=== PATIENT | female | born 1950 | race Caucasian/White ===

== ENCOUNTER → 2020-01-28 10:47 | Outpatient (BNVA) | payer MEDICARE, SELFPAY | PROVIDERS: PCP Internal Medicine; Visit Provider Internal Medicine Endocrinology, Diabetes & Metabolism | DX: E10.649 Type 1 diabetes mellitus with hypoglycemia without coma (principal); E10.319 Type 1 diabetes mellitus with unspecified diabetic retinopathy without macular edema; E10.40 Type 1 diabetes mellitus with diabetic neuropathy, unspecified; Z96.41 Presence of insulin pump (external) (internal); E66.9 Obesity, unspecified; E21.1 Secondary hyperparathyroidism, not elsewhere classified; E78.5 Hyperlipidemia, unspecified; I10 Essential (primary) hypertension; E06.3 Autoimmune thyroiditis; E03.9 Hypothyroidism, unspecified; Z79.899 Other long term (current) drug therapy | CPT/HCPCS: 82947; 99214; 99215 ==

== ENCOUNTER → 2020-02-09 08:07 | Outpatient (BNVA) | payer MEDICARE, SELFPAY | PROVIDERS: PCP Internal Medicine; Visit Provider Dietitian, Registered | DX: Z76.89 Persons encountering health services in other specified circumstances (principal) ==

== ENCOUNTER → 2020-02-17 09:57 | Outpatient (BNVA) | payer MEDICARE, SELFPAY | PROVIDERS: PCP Internal Medicine; Visit Provider Internal Medicine Endocrinology, Diabetes & Metabolism | DX: E10.649 Type 1 diabetes mellitus with hypoglycemia without coma (principal); E10.319 Type 1 diabetes mellitus with unspecified diabetic retinopathy without macular edema; E10.40 Type 1 diabetes mellitus with diabetic neuropathy, unspecified; E66.9 Obesity, unspecified; E21.1 Secondary hyperparathyroidism, not elsewhere classified; E78.5 Hyperlipidemia, unspecified; I10 Essential (primary) hypertension; E06.3 Autoimmune thyroiditis; E03.8 Other specified hypothyroidism; Z79.899 Other long term (current) drug therapy; Z98.84 Bariatric surgery status | CPT/HCPCS: 82947; 99212 ==

== ENCOUNTER → 2020-02-22 10:55 | Outpatient (BNVA) | payer MEDICARE, SELFPAY | PROVIDERS: Visit Provider Internal Medicine | DX: I21.4 Non-ST elevation (NSTEMI) myocardial infarction (principal); I25.10 Atherosclerotic heart disease of native coronary artery without angina pectoris; I10 Essential (primary) hypertension; E11.8 Type 2 diabetes mellitus with unspecified complications; E78.49 Other hyperlipidemia; Z98.84 Bariatric surgery status; Z88.5 Allergy status to narcotic agent; Z88.8 Allergy status to other drugs, medicaments and biological substances; Z79.899 Other long term (current) drug therapy | CPT/HCPCS: 99212 ==

== ENCOUNTER 2020-02-23 10:51 | Outpatient (REF) | payer MEDICARE, SELFPAY ==
--- NOTE | 2020-02-23 10:56 | MM_ITS ---
EXAMINATION: MM SCREENING DIGITAL BREAST TOMOSYNTHESIS, BILATERAL CLINICAL INFORMATION: Screening. Asymptomatic. The lifetime risk of breast cancer based on the Tyrer-Cuzick Model is 3.0%. COMPARISON: Mammography: September 28, 2018 and studies dating back to December 25, 2011 TECHNIQUE: Digital breast tomosynthesis is performed in both the craniocaudal and mediolateral oblique views along with computer-aided detection (CAD). Synthesized 2D images are generated from the tomosynthesis. FINDINGS: The breasts are heterogeneously dense, which may obscure small masses (ACR BI-RADS breast composition Category c). There are no significant masses, abnormal calcifications, or other abnormalities. There is multiplicity and bilaterality of calcifications which are similar in appearance as well as prominent vascular calcifications. MM/MM tomosynthesis screening BI IMPRESSION: There are no significant changes from prior study. ASSESSMENT: BI-RADS 1: Negative RECOMMENDATION: Routine annual mammography screening. This patient's information was entered into a reminder system with a target due date for their next mammogram.
== END 2020-02-23 10:52 | disposition home or self-care (01) ==
LOC: HO.MAMMO 10:51
PROVIDERS: PCP Internal Medicine; Visit Provider Internal Medicine
DX: Z12.31 Encounter for screening mammogram for malignant neoplasm of breast (principal)
CPT/HCPCS: 77063; 77067

== ENCOUNTER 2020-03-27 11:53 | Outpatient (REF) | payer MEDICARE, SELFPAY | END 2020-03-27 11:54 | disposition home or self-care (01) | LOC: HO.LAB 11:53 | PROVIDERS: Visit Provider Internal Medicine | DX: Z20.828 Contact with and (suspected) exposure to other viral communicable diseases (principal) | CPT/HCPCS: C9803; U0003 ==

== ENCOUNTER → 2020-03-29 08:09 | Outpatient (BNVA) | payer MEDICARE, SELFPAY | PROVIDERS: PCP Internal Medicine; Visit Provider Physician Assistant | DX: E66.9 Obesity, unspecified (principal) ==

== ENCOUNTER → 2020-03-30 14:31 | Outpatient (BNVA) | payer MEDICARE, SELFPAY | PROVIDERS: PCP Internal Medicine; Visit Provider Physician Assistant | DX: K91.2 Postsurgical malabsorption, not elsewhere classified (principal); E66.9 Obesity, unspecified; Z90.3 Acquired absence of stomach [part of] | CPT/HCPCS: Q3014 ==

== ENCOUNTER → 2020-04-18 15:00 | Outpatient (BNV) | payer MEDICARE, SELFPAY | PROVIDERS: PCP Internal Medicine; Visit Provider Internal Medicine Medical Oncology | DX: N18.9 Chronic kidney disease, unspecified (principal); D63.1 Anemia in chronic kidney disease; E53.8 Deficiency of other specified B group vitamins; Z98.84 Bariatric surgery status | CPT/HCPCS: 99212; 99213; 99214 ==

== ENCOUNTER 2020-05-03 10:36 | Outpatient (REF) | payer MEDICARE, SELFPAY ==
[2020-05-03 13:26] LABS: Free T4 (Free Thyroxine) 0.56 ng/dL (0.71-1.85); Thyroid Stimulating Hormone 46.27 uIU/mL (0.32-4.0); Vitamin B12 1125 pg/mL (200-900); Vitamin D 25-OH Total 40.4 ng/mL (>30)
[2020-05-03 13:33] LABS: Alanine Aminotransferase 49 U/L (0-31); Alkaline Phosphatase 105 U/L (39-117); Anion Gap 16 (12-20); Aspartate Amino Transferase 38 U/L (5-31); Bilirubin Total 0.5 mg/dL (0.0-1.0); Blood Urea Nitrogen 15 mg/dL (9-16); Calcium 9.2 mg/dL (8.4-10.2); Carbon Dioxide 25 mmol/L (22-29); Chloride 102 mmol/L (96-108); Cholesterol 151 mg/dL; Estimated Glomerular Filt Rate 43; Glucose Fasting 253 mg/dL (60-99); HDL Cholesterol 84 mg/dL; LDL Cholesterol Calculated 49 mg/dl; Potassium 4.3 mmol/l (3.3-5.1); Sodium 139 mmol/L (135-145); Total Protein 6.6 g/dL (6.5-8.0); Triglycerides 94 mg/dL
[2020-05-03 13:54] LABS: Creatinine Urine 182.01 mg/dL; Microalbum/Creatinine Ratio Ur 2.7 ug/mg cr
[2020-05-04 06:17] LABS: LDL Cholesterol Direct 33 mg/dL (<100)
[2020-05-04 17:21] LABS: Calcium (PTHI) 9.1 mg/dL (8.6-10.4); PTHI 82 pg/mL (14-64)
== END 2020-05-03 10:37 | disposition home or self-care (01) ==
LOC: HO.LAB 10:36
PROVIDERS: PCP Internal Medicine; Visit Provider Internal Medicine Endocrinology, Diabetes & Metabolism
DX: E10.65 Type 1 diabetes mellitus with hyperglycemia (principal); E10.649 Type 1 diabetes mellitus with hypoglycemia without coma; E21.1 Secondary hyperparathyroidism, not elsewhere classified
CPT/HCPCS: 36415; 80053; 80061; 82043; 82306; 82607; 83721; 83970; 84439; 84443

== ENCOUNTER 2020-05-05 09:54 | Outpatient (REF) | payer MEDICARE, SELFPAY ==
--- NOTE | 2020-05-05 09:56 | FL_ITS ---
EXAMINATION: XR GI SERIES CLINICAL INFORMATION: Epigastric pain. COMPARISON: Upper GI series 12/11/2016. TECHNIQUE: Routine upper GI air-contrast study was performed. FINDINGS: Following oral administration of thick barium and effervescent granules there is normal propagation of bolus from the oral cavity through the pharynx, esophagus into stomach. Patient has undergone gastric bypass surgery with extensive surgical samuel in the left upper quadrant. On placing patient supine and prone there is spontaneous passage of oral contrast from the stomach into the duodenal and jejunal regions without any evidence of obstruction or narrowing. No gastroesophageal reflux seen. The mucosal pattern of esophagus, small gastric pouch, duodenal and jejunum appear unremarkable. No gastroesophageal reflux or hiatal hernia. FLUOROSCOPY TIME: 1.4 minutes. DOSE AREA PRODUCT: 29.288 uGy-m2 (microgray-meter squared). FL/FL upper GI series IMPRESSION: Unremarkable upper GI air-contrast. There is evidence of previous gastric bypass surgery with no mucosal abnormality. No reflux or hiatal hernia. No major change compared to previous study from 12/11/2016 exam.
== END 2020-05-05 09:55 | disposition home or self-care (01) ==
LOC: HO.XRAY 09:54
PROVIDERS: Visit Provider Internal Medicine Gastroenterology
DX: R10.13 Epigastric pain (principal)
CPT/HCPCS: 74240

== ENCOUNTER → 2020-05-12 10:28 | Outpatient (BNVA) | payer MEDICARE, SELFPAY | PROVIDERS: PCP Internal Medicine; Visit Provider Internal Medicine Endocrinology, Diabetes & Metabolism | DX: E10.649 Type 1 diabetes mellitus with hypoglycemia without coma (principal); E21.1 Secondary hyperparathyroidism, not elsewhere classified; E66.9 Obesity, unspecified; E78.5 Hyperlipidemia, unspecified; E06.3 Autoimmune thyroiditis; E03.8 Other specified hypothyroidism; I10 Essential (primary) hypertension | CPT/HCPCS: 82947; 99212 ==

== ENCOUNTER → 2020-05-17 08:15 | Outpatient (BNVA) | payer MEDICARE, SELFPAY | PROVIDERS: PCP Internal Medicine; Visit Provider Dietitian, Registered | DX: Z76.89 Persons encountering health services in other specified circumstances (principal) ==

== ENCOUNTER 2020-06-12 11:57 | Outpatient (REF) | payer MEDICARE, SELFPAY ==
[2020-06-12 16:07] LABS: Alanine Aminotransferase 37 U/L (0-31); Albumin Level 4.1 g/dL (3.5-5.0); Alkaline Phosphatase 90 U/L (39-117); Anion Gap 19 (12-20); Aspartate Amino Transferase 28 U/L (5-31); Bilirubin Total 0.9 mg/dL (0.0-1.0); Blood Urea Nitrogen 24 mg/dL (9-16); Carbon Dioxide 24 mmol/L (22-29); Chloride 102 mmol/L (96-108); Cholesterol 104 mg/dL; Estimated Glomerular Filt Rate 46; Glucose Random 191 mg/dL (60-115); HDL Cholesterol 50 mg/dL; LDL Cholesterol Calculated 34 mg/dl; Potassium 3.9 mmol/L (3.3-5.1); Sodium 141 mmol/L (135-145); Total Protein 6.7 g/dL (6.5-8.0); Triglycerides 104 mg/dL
[2020-06-12 16:27] LABS: Free T4 (Free Thyroxine) 0.94 ng/dL (0.71-1.85); Thyroid Stimulating Hormone 4.94 uIU/mL (0.32-4.0)
[2020-06-14 10:27] LABS: C Peptide < 0.10 ng/mL (0.80-3.85); LDL Cholesterol Direct 30 mg/dL (<100)
[2020-06-19 08:46] LABS: Glutamic acid decarboxylase Ab >250 IU/mL (<5)
[2020-06-19 23:46] LABS: Islet Cell Antibody Screen NEGATIVE (NEGATIVE)
== END 2020-06-12 11:58 | disposition home or self-care (01) ==
LOC: HO.LAB 11:57
PROVIDERS: PCP Internal Medicine; Visit Provider Internal Medicine Endocrinology, Diabetes & Metabolism
DX: E10.649 Type 1 diabetes mellitus with hypoglycemia without coma (principal); E78.5 Hyperlipidemia, unspecified; I21.4 Non-ST elevation (NSTEMI) myocardial infarction; I25.10 Atherosclerotic heart disease of native coronary artery without angina pectoris; I10 Essential (primary) hypertension; E21.1 Secondary hyperparathyroidism, not elsewhere classified; E06.3 Autoimmune thyroiditis; E66.9 Obesity, unspecified; K91.2 Postsurgical malabsorption, not elsewhere classified; F41.8 Other specified anxiety disorders; Z88.8 Allergy status to other drugs, medicaments and biological substances; Z79.4 Long term (current) use of insulin; Z96.41 Presence of insulin pump (external) (internal); Z79.899 Other long term (current) drug therapy
CPT/HCPCS: 36415; 80053; 80061; 82947; 83721; 84439; 84443; 84681; 86255; 86341; 99212

== ENCOUNTER → 2020-07-26 08:09 | Outpatient (BNVA) | payer MEDICARE, SELFPAY | PROVIDERS: PCP Internal Medicine; Visit Provider Physician Assistant ==

== ENCOUNTER → 2020-08-04 08:13 | Outpatient (BNVA) | payer MEDICARE, SELFPAY | PROVIDERS: PCP Internal Medicine; Visit Provider Physician Assistant | DX: E66.9 Obesity, unspecified (principal); Z68.30 Body mass index [BMI] 30.0-30.9, adult; Z98.84 Bariatric surgery status | CPT/HCPCS: Q3014 ==

== ENCOUNTER → 2020-08-28 13:01 | Outpatient (BNVA) | payer MEDICARE, SELFPAY | PROVIDERS: PCP Internal Medicine; Referring Provider Internal Medicine; Visit Provider Internal Medicine | DX: I21.4 Non-ST elevation (NSTEMI) myocardial infarction (principal); I25.10 Atherosclerotic heart disease of native coronary artery without angina pectoris; I10 Essential (primary) hypertension; E78.49 Other hyperlipidemia; E11.8 Type 2 diabetes mellitus with unspecified complications; Z98.84 Bariatric surgery status; Z79.899 Other long term (current) drug therapy | CPT/HCPCS: 93005; 99212 ==

== ENCOUNTER → 2020-09-06 08:07 | Outpatient (BNVA) | payer MEDICARE, SELFPAY | PROVIDERS: PCP Internal Medicine; Visit Provider Dietitian, Registered | DX: E66.9 Obesity, unspecified (principal); Z68.30 Body mass index [BMI] 30.0-30.9, adult | CPT/HCPCS: 97803 ==

== ENCOUNTER 2020-09-19 11:00 | Outpatient (RCR) | payer MEDICARE, SELFPAY ==
--- NOTE | 2020-08-17 12:11 | MHC.PT.EP ---
[facility] [place] [facility] [place] [facility] [place] [facility] [address] Lizbet Stoll [address] [phone] F: [phone] F: [phone] F: [phone] F: [phone] Physical Therapy Plan of Care Date of Evaluation: Date of Surgery: na Diagnosis: low back pain Assessment: The patient has reduced functional movement. She lives a relatively sedentary lifestyle. She receives services that help with most ADL's. She demonstrates poor body awareness, sitting posture, and body mechanics for bending. The patient reports spending lots of time watching t.v while leaning on her headboard in bed. Improved sitting posture was discussed, and general core stabilization exercises were introduced. She is a good candidate for skilled PT . Frequency and Duration: The patient will be seen 2x/week x 4 weeks Short Term Goals: 1.Pt to able to demonstrate proper sitting posture with the use of a lumbar roll to decrease aggravating factors. 2.Pt to be able to demonstrate proper posture for common leisure activities such as crocheting and phone/tablet use. 3.For the patient to demonstrate proper upright sitting posture with use of the lumbar roll to improve compliance and carryover. Senior Care Goals: 1. pt to be able to do all functional movements such as squatting, bending, and reaching overhead with good balance and motor control.. 2. Pt to be able to walk with a heel to toe reciprocal gait pattern with adequate toe clearance. 3. Pt to be able to demonstrate self management of lumbar pain by demonstration of HEP. Treatment Plan: Modalities to reduce pain, spasms and effusion. Manual therapy to restore motion and function. Therapeutic exercise to improve strength and flexibility. Neuromuscular re-education for posture and balance. Therapeutic activities to return to functional activities of daily living. Electronically signed by: Yandy Quintero PT DPT Please sign and return to therapist. Thank you for your referral.
== END 2020-11-20 10:00 | disposition home or self-care (01) ==
LOC: HO.PT 11:00
PROVIDERS: PCP Internal Medicine; Visit Provider Psychiatry & Neurology Neurology
DX: M54.5 Low back pain (principal)
CPT/HCPCS: 97110; 97112; 97163

== ENCOUNTER 2020-10-26 07:28 | Outpatient (REF) | payer MEDICARE, SELFPAY | END 2020-10-26 07:29 | disposition home or self-care (01) | LOC: HO.MDS 07:28 | PROVIDERS: PCP Internal Medicine; Visit Provider Internal Medicine Medical Oncology | DX: D50.9 Iron deficiency anemia, unspecified (principal) | CPT/HCPCS: 96365; 96366; J1200; J1750; Q0163 ==

== ENCOUNTER 2020-10-30 10:06 | Outpatient (REF) | payer MEDICARE, SELFPAY ==
[2020-10-30 12:12] LABS: Alanine Aminotransferase 94 U/L (0-31); Albumin Level 3.7 g/dL (3.5-5.0); Alkaline Phosphatase 133 U/L (39-117); Anion Gap 13 (12-20); Aspartate Amino Transferase 53 U/L (5-31); Bilirubin Total 0.5 mg/dL (0.0-1.0); Blood Urea Nitrogen 20 mg/dL (9-16); Calcium 9.3 mg/dL (8.4-10.2); Carbon Dioxide 28 mmol/L (22-29); Chloride 105 mmol/L (96-108); Cholesterol 101 mg/dL; Estimated Glomerular Filt Rate 50; Gamma Glutamyl Transpeptidase 81 U/L (7-33); Glucose Random 111 mg/dL (60-115); HDL Cholesterol 43 mg/dL; LDL Cholesterol Calculated 37 mg/dl; Potassium 4.3 mmol/L (3.3-5.1); Sodium 142 mmol/L (135-145); Triglycerides 106 mg/dL
[2020-10-30 12:34] LABS: Free T4 (Free Thyroxine) 1.11 ng/dL (0.71-1.85); Thyroid Stimulating Hormone 3.26 uIU/mL (0.32-4.0)
[2020-11-01 13:22] LABS: LDL Cholesterol Direct 32 mg/dL (<100)
== END 2020-10-30 10:07 | disposition home or self-care (01) ==
LOC: HO.LAB 10:06
PROVIDERS: PCP Internal Medicine; Visit Provider Internal Medicine Endocrinology, Diabetes & Metabolism
DX: E10.649 Type 1 diabetes mellitus with hypoglycemia without coma (principal); E66.9 Obesity, unspecified; Z68.29 Body mass index [BMI] 29.0-29.9, adult; E21.1 Secondary hyperparathyroidism, not elsewhere classified; E78.5 Hyperlipidemia, unspecified; E06.3 Autoimmune thyroiditis; E03.8 Other specified hypothyroidism; I10 Essential (primary) hypertension; Z71.3 Dietary counseling and surveillance
CPT/HCPCS: 36415; 80053; 80061; 82947; 82977; 83721; 84439; 84443; 99212

== ENCOUNTER → 2020-11-13 10:27 | Outpatient (BNVA) | payer MEDICARE, SELFPAY | PROVIDERS: PCP Internal Medicine; Referring Provider Internal Medicine; Visit Provider Dietitian, Registered | DX: E66.3 Overweight (principal) | CPT/HCPCS: 97803 ==

== ENCOUNTER 2020-12-08 16:51 | Emergency (ER) | payer MEDICARE, SELFPAY ==
--- NOTE | ~2020-12-08 | XR_ITS ---
EXAMINATION: XR CHEST CLINICAL INFORMATION: Cough COMPARISON: Chest x-ray January 24, 2017 TECHNIQUE: Frontal portable view of the chest was obtained. 9:56 PM FINDINGS: Lungs are clear. No pulmonary vascular congestion. There is no pleural effusion. The heart size is normal. The cardiac and mediastinal contours are normal. There are calcifications of the thoracic aorta. There are multilevel degenerative changes of dorsal spine. XR/XR chest 1V IMPRESSION: Unremarkable examination.
[2020-12-08 17:05] VITALS: BP 130/70; BP 132/56; PULSE 83; PULSE 95; RESP 18; TEMP 36.9; O2SAT 96; BMI 28.8
[2020-12-08 17:50] LABS: MANUAL DIFF FLAG NO
[2020-12-08 17:53] LABS: Basophils Absolute Auto 0.1 X10*3/uL (0.0-0.2); Eosinophils Absolute Auto 1.1 X10*3/uL (0.0-0.4); Eosinophils Percent Auto 9.2 % (0-4); Hematocrit 31.7 % (37-47); Hemoglobin 10.2 g/dl (12.0-16.0); Imm Gran Abs Auto 0.07 X10*3/uL (0.00-0.03); Imm Gran Pct Auto 0.6 % (0.0-0.4); Lymphocytes Absolute Auto 3.3 X10*3/uL (1.2-4.9); Mean Corpuscular HGB Conc 32.2 g/dl (31.0-35.0); Mean Corpuscular Hemoglobin 27.9 pg (27.0-33.0); Mean Corpuscular Volume 86.6 fL (80-98); Mean Platelet Volume 12.3 fL (9.4-12.3); Monocytes Absolute Auto 0.9 X10*3/uL (0.1-1.2); Monocytes Percent Auto 7.3 % (2-11); Neutrophils Absolute Auto 6.7 X10*3/uL (2.0-8.3); Neutrophils Percent Auto 54.9 % (45-73); Platelet Count 176 X10*3/uL (160-400); Red Blood Count 3.66 X10*6/uL (4.20-5.50); Red Cell Distribution Width 14.9 % (11.0-16.0); White Blood Count 12.2 X10*3/uL (4.8-10.8)
[2020-12-08 18:06] LABS: COVID-19 Test Negative (Negative)
[2020-12-08 18:19] LABS: Anion Gap 14 (12-20); Blood Urea Nitrogen 25 mg/dL (9-16); Calcium 8.6 mg/dL (8.4-10.2); Carbon Dioxide 28 mmol/L (22-29); Chloride 103 mmol/L (96-108); Creatinine Clr Calc Pharmacy 33.2; Estimated Glomerular Filt Rate 41; Glucose Random 316 mg/dL (60-115); Potassium 4.2 mmol/L (3.3-5.1); Sodium 141 mmol/L (135-145)
[2020-12-08 21:42] LABS: Glucose, Whole Blood 280 mg/dL (60-115)
--- NOTE | 2020-12-08 22:02 | ED_ITS ---
HPI - General Adult General Chief complaint: Abdominal Pain Stated complaint: stomach/leg pain Time Seen by Provider: 12/08/20 22:01 Source: patient and drug abuse treatment specialist Mode of arrival: ambulatory Limitations: no limitations History of Present Illness HPI narrative: 70-year-old female came in with symptoms of generalized body ache, headache, dizziness, epigastric pain with nausea and decreased p.o. intake symptoms started 4 days ago, no sick contact, no recent travel, patient is up-to-date on her immunization and vaccination for COVID, patient stated that most of her symptoms improved except generalized weakness and headache. Related Data Home Medications Medication Instructions Recorded Confirmed albuterol sulfate 90 mcg/actuation 0 mcg INHALATION AC 01/28/20 10/30/20 aerosol inhaler clonidine HCl 0.1 mg tablet 0.1 mg PO DIRECTED 01/28/20 10/30/20 pantoprazole 40 mg tablet,delayed 40 mg PO DAILY 01/28/20 10/30/20 release (Protonix) ranitidine HCl 150 mg tablet 150 mg PO DAILY tab 01/28/20 10/30/20 sucralfate 100 mg/mL oral 10 ml PO Q6H 01/28/20 10/30/20 suspension venlafaxine 150 mg 300 mg PO DAILY cap 01/28/20 10/30/20 capsule,extended release 24 hr (Effexor XR) aripiprazole 20 mg tablet 20 mg PO BEDTIME 02/17/20 10/30/20 blood sugar diagnostic #10 ea 02/17/20 10/30/20 gabapentin 100 mg capsule 100 mg PO DIRECTED 02/17/20 10/30/20 multivitamin 1 tab PO QAM 02/17/20 10/30/20 hydroxyzine HCl 10 mg tablet 10 mg PO DAILY tab 02/22/20 10/30/20 metoprolol succinate 25 mg 12.5 mg PO DAILY 02/22/20 10/30/20 tablet,extended release 24 hr acetaminophen 300 mg-codeine 30 mg 1 tab PO Q8H PRN 04/18/20 10/30/20 tablet prazosin 2 mg capsule 2 mg PO DAILY cap 05/12/20 10/30/20 calcium citrate 200 mg (950 mg) 400 mg PO BID 08/28/20 10/30/20 tablet clonazepam 1 mg disintegrating 1 mg PO BID PRN 08/28/20 10/30/20 tablet diclofenac sodium 75 mg 75 mg PO BID 08/28/20 10/30/20 tablet,delayed release esomeprazole magnesium 40 mg 40 mg PO DAILY 08/28/20 10/30/20 capsule,delayed release Previous Rx's Medication Instructions Recorded atorvastatin 80 mg tablet 80 mg PO DAILY 30 Days #30 tab 01/28/20 BD Cherelle 2nd Gen Pen Needle 32 #200 ea NS 06/12/20 gauge x 5/32 (pen needle, diabetic) Tien John U-100 Insulin 100 See Rx Instructions SUBCUT .5 06/12/20 unit/mL subcutaneous (insulin times a day 30 Days #15 ml NS [id number]) insulin syringe-needle U-100 0.3 #100 ea 06/13/20 mL 31 gauge x 5/16 (BD Insulin Syringe Ultra-Fine) cholecalciferol (vitamin D3) 50 50 mcg PO DAILY 30 Days #30 cap 07/11/20 mcg (2,000 unit) capsule calcium citrate 500 mg PO BID 30 Days #120 tab 07/13/20 Dexcom G6 Sensor (blood-glucose #3 ea NS 07/26/20 sensor) clopidogrel 75 mg tablet 75 mg PO QAM #30 tab 09/28/20 amlodipine 10 mg tablet 10 mg PO DAILY 30 Days #30 tab 10/10/20 blood sugar diagnostic (FreeStyle #200 ea 10/25/20 Lite Strips) Tirosint 88 mcg capsule 88 mcg PO DAILY 30 Days #30 cap NS 10/30/20 (levothyroxine) insulin aspart See Rx Instructions SUBCUT .5 10/30/20 (niacinamide)(U-100) 100 unit/mL(3 times a day 30 Days #15 ml mL) subcutaneous pen (Fiasp FlexTouch U-100 Insulin) insulin degludec 100 unit/mL (3 12 unit SUBCUT DAILY 30 Days #15 ml 10/30/20 mL) subcutaneous pen (Tresiba FlexTouch U-100 insulin) carvedilol 6.25 mg tablet 6.25 mg PO BID 90 Days #180 tab 11/03/20 furosemide 20 mg tablet 20 mg PO QAM #90 tab 11/03/20 Allergies Allergy/AdvReac Type Severity Reaction Status Date / Time lorazepam [LORAZEPAM] Allergy Severe DELIRIUM Verified 08/28/20 13:25 celecoxib [From Celebrex] Allergy Intermediate ITCHING Verified 08/28/20 13:25 tramadol [TRAMADOL] Allergy Intermediate ITCHING Verified 08/28/20 13:25 zolpidem [Ambien] Allergy Unknown unknown Verified 08/28/20 13:25 Review of Systems Review of Systems: All other systems are reviewed and are negative Constitutional: Reports as per HPI and Reports no additional constitutional complaints Eyes: Reports as per HPI and Reports no additional eye complaints Reports system reviewed and no additional complaints, except as documented Cardiovascular: Reports as per HPI and Reports no additional cardiovascular complaints Respiratory: Reports as per HPI and Reports no additional respiratory complaints Gastrointestinal: Reports as per HPI and Reports no additional gastrointestinal complaints Genitourinary: Reports no additional female genitourinary complaints Musculoskeletal: Reports no additional musculoskeletal complaints Skin/Breast: Reports system reviewed and no additional complaints, except as docu Psychiatric: Reports no additional psychiatric complaints Endocrine: Reports no additional endocrine complaints Hematologic/Lymphatic: Reports no additional hematologic/lymphatic complaints Allergic/Immunologic: Reports no additional allergic/immunologic complaints Reports system reviewed and no additional complaints, except as documented and Reports Abnormal speech present FOR[facility]LY [facility] Past Medical History Medical History Anxiety Atherosclerotic cardiovascular disease Depression Diabetes type 1, uncontrolled Dyslipidemia Elevated liver function tests Essential hypertension Fibromyalgia Folliculitis Rona's disease History of myocardial infarction Hyperlipidemia, unspecified Hyperparathyroidism due to vitamin D deficiency Hypertension 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 Hypothyroidism Intestinal malabsorption following gastrectomy NSTEMI (non-ST elevated myocardial infarction) Obesity (BMI 30-39.9) Surgical History H/O gastric bypass History of bladder suspension procedure Hx of appendectomy Status post gastric bypass for obesity Status post laser cataract surgery of both eyes Family History Family History Father No problems noted. Mother No problems noted. Social History Social History Alcohol intake: never Advance Directives: No Physical Exam Vital Signs: Vital Signs: Last Vital Signs Temp 98.5 F 12/08/20 17:05 Pulse 83 12/08/20 17:05 Resp 18 12/08/20 17:05 BP 132/56 L 12/08/20 17:05 Pulse Ox 96 12/08/20 17:05 Body Mass Index 28.8 Vital signs have been reviewed as appeared to be correct. Blood pressure normal. Heart rate normal. Respiration rate normal. Temperature normal. Oxygen saturation normal. Appearance: Alert. Oriented X3. No acute distress. Head: Normal external exam. Normocephalic. Atraumatic. No Arnold signs noted. No raccoon eyes noted Eyes: PERRLA. EOMI. Conjunctiva and sclera normal. Eyelids normal. ENT: TM's Normal. Pharynx normal. Uvula midline. Moist mucous membranes. No trismus noted. No drooling noted. No muffled voice noted. Neck: Normal inspection. Neck supple. FROM. No adenopathy. Thyroid Normal. No meningeal signs. No neck mass noted. CVS: Normal heart rate and rhythm. Heart sound normal. No murmurs noted. Pulses normal throughout. Respiratory: No respiratory distress. Painless inspiration. Breath sounds normal. No wheezes/rales/rhonchi noted. Chest nontender. No accessory muscle usage noted or decreased air movement noted. Abdomen: Soft and nontender. Bowel sounds normal in all 4 quadrants. No distention noted. No organomegaly noted. No visible injury noted. Back: No CVA tenderness. Full range of motion noted. Skin: Skin warm and dry. Normal skin color. Normal skin turgor. No rashes/lesions/lacerations noted. Extremities: No lower extremity edema. Extremities exhibit normal range of motion. Extremities nontender. Neuro: Oriented X 3. Cranial nerve exam: II-XII are grossly intact No motor deficit. No sensory deficit. Reflexes normal. Course Course Course Narrative: 70-year-old female came in with viral like symptoms, patient has stable vital signs, unremarkable labs except for mild leukocytosis, chest x- ray is unremarkable for infection, UA shows no infection. Patient is able to tolerate p.o. intake with no problem. Will discharge the patient with drinking fluids at home. Medical Decision Making Lab Data Lab results reviewed: Yes I reviewed the patient's lab results. Result diagrams: 12/08/20 17:29 12/08/20 17:29 Labs: Lab Results 12/08/20 12/08/20 12/08/20 Range/Units 17:29 17:29 17:29 WBC 12.2 H (4.8-10.8) X10*3/uL RBC 3.66 L (4.20-5.50) X10*6/uL Hgb 10.2 L (12.0-16.0) g/dl Hct 31.7 L (37-47) % MCV 86.6 (80-98) fL MCH 27.9 (27.0-33.0) pg MCHC 32.2 (31.0-35.0) g/dl RDW 14.9 (11.0-16.0) % Plt Count 176 D (160-400) X10*3/uL MPV 12.3 (9.4-12.3) fL Immature Gran % (Auto) 0.6 H (0.0-0.4) % Neut % (Auto) 54.9 (45-73) % Lymph % (Auto) 27.0 (20-40) % [place] % (Auto) 7.3 (2-11) % Eos % (Auto) 9.2 H (0-4) % Baso % (Auto) 1.0 (0-2) % Lymph # (Auto) 3.3 (1.2-4.9) X10*3/uL [place] # (Auto) 0.9 (0.1-1.2) X10*3/uL Eos # (Auto) 1.1 H (0.0-0.4) X10*3/uL Baso # (Auto) 0.1 (0.0-0.2) X10*3/uL Abs Immat Gran (auto) 0.07 H (0.00-0.03) X10*3/uL Absolute Neuts (auto) 6.7 (2.0-8.3) X10*3/uL Absolute Nucleated RBC 0.000 (0.0-0.012) X10*3/uL Nucleated RBC % (auto) 0.0 (0.0-0.2) /100WBC Sodium 141 (135-145) mmol/L Potassium 4.2 (3.3-5.1) mmol/L Chloride 103 (96-108) mmol/L Carbon Dioxide 28 (22-29) mmol/L Anion Gap 14 (12-20) BUN 25 H (9-16) mg/dL Creatinine 1.29 (0.5-1.4) mg/dL Estim Creat Clear Calc 33.2 Estimated GFR 41 POC Glucose (60-115) mg/dL Random Glucose 316 H D (60-115) mg/dL Calcium 8.6 D (8.4-10.2) mg/dL Urine Color Urine Appearance Urine pH (5.0-8.0) Ur Specific [place] (1.005-1.025) Urine Protein (NEG-TRACE) MG/DL Urine Glucose (UA) (NEG) MG/DL Urine Ketones (NEG) MG/DL Urine Blood (NEG) Urine Nitrite (NEG) Ur Leukocyte Esterase (NEG) COVID-19 ([facility]) Negative (Negative) COVID-19 Clin Com See Note 12/08/20 12/08/20 Range/Units 21:38 23:06 WBC (4.8-10.8) X10*3/uL RBC (4.20-5.50) X10*6/uL Hgb (12.0-16.0) g/dl Hct (37-47) % MCV (80-98) fL MCH (27.0-33.0) pg MCHC (31.0-35.0) g/dl RDW (11.0-16.0) % Plt Count (160-400) X10*3/uL MPV (9.4-12.3) fL Immature Gran % (Auto) (0.0-0.4) % Neut % (Auto) (45-73) % Lymph % (Auto) (20-40) % [place] % (Auto) (2-11) % Eos % (Auto) (0-4) % Baso % (Auto) (0-2) % Lymph # (Auto) (1.2-4.9) X10*3/uL [place] # (Auto) (0.1-1.2) X10*3/uL Eos # (Auto) (0.0-0.4) X10*3/uL Baso # (Auto) (0.0-0.2) X10*3/uL Abs Immat Gran (auto) (0.00-0.03) X10*3/uL Absolute Neuts (auto) (2.0-8.3) X10*3/uL Absolute Nucleated RBC (0.0-0.012) X10*3/uL Nucleated RBC % (auto) (0.0-0.2) /100WBC Sodium (135-145) mmol/L Potassium (3.3-5.1) mmol/L Chloride (96-108) mmol/L Carbon Dioxide (22-29) mmol/L Anion Gap (12-20) BUN (9-16) mg/dL Creatinine (0.5-1.4) mg/dL Estim Creat Clear Calc Estimated GFR POC Glucose 280 H (60-115) mg/dL Random Glucose (60-115) mg/dL Calcium (8.4-10.2) mg/dL Urine Color YELLOW Urine Appearance CLEAR Urine pH 6.5 (5.0-8.0) Ur Specific [place] 1.010 (1.005-1.025) Urine Protein NEG (NEG-TRACE) MG/DL Urine Glucose (UA) 500 H (NEG) MG/DL Urine Ketones NEG (NEG) MG/DL Urine Blood NEG (NEG) Urine Nitrite NEG (NEG) Ur Leukocyte Esterase NEG (NEG) COVID-19 ([facility]) (Negative) COVID-19 Clin Com Imaging Data Chest x-ray: Radiologist's impression: No acute pathology. Discharge Plan Discharge Clinical Impression: Acute viral syndrome Patient Disposition: Home, Self-Care Instructions: Viral Syndrome (ED) Prescriptions: No Action (DME) insulin syringe-needle U-100 [BD Insulin Syringe Ultra-Fine] 0.3 mL 31 gauge x 5/16 syringe See Rx Instructions .ROUTE .MEDSUPPLY Qty: 100 RF: 0 cholecalciferol (vitamin D3) 50 mcg (2,000 unit) capsule 50 mcg PO DAILY 30 Days Qty: 30 RF: 5 calcium citrate 250 mg calcium tablet 500 mg PO BID 30 Days Qty: 120 RF: 5 (DME) Dexcom G6 Sensor Device See Rx Instructions .ROUTE .MEDSUPPLY Qty: 3 RF: 11 clopidogrel 75 mg tablet 75 mg PO QAM Qty: 30 RF: 5 amlodipine 10 mg tablet 10 mg PO DAILY 30 Days Qty: 30 RF: 5 (DME) FreeStyle Lite Strips Strip See Rx Instructions .ROUTE .MEDSUPPLY Qty: 200 RF: 6 carvedilol 6.25 mg tablet 6.25 mg PO BID 90 Days Qty: 180 RF: 4 furosemide 20 mg tablet 20 mg PO QAM Qty: 90 RF: 3 acetaminophen-codeine 300-30 mg tablet 1 tab PO Q8H PRN (Reason: Pain) RF: 0 clonidine HCl 0.1 mg tablet 0.1 mg PO DIRECTED RF: 0 sucralfate 100 mg/mL suspension 10 ml PO Q6H RF: 0 albuterol sulfate 90 mcg/actuation HFA aerosol inhaler 0 mcg inhalation AC RF: 0 pantoprazole [Protonix] 40 mg tablet,delayed release (DR/EC) 40 mg PO DAILY RF: 0 venlafaxine [Effexor XR] 150 mg capsule,extended release 24hr 300 mg PO DAILY RF: 0 ranitidine HCl 150 mg tablet 150 mg PO DAILY RF: 0 atorvastatin 80 mg tablet 80 mg PO DAILY 30 Days Qty: 30 RF: 5 aripiprazole 20 mg tablet 20 mg PO BEDTIME RF: 0 (DME) FreeStyle Lite Strips Strip See Rx Instructions ea Not Applicable .MEDSUPPLY Qty: 10 RF: 0 gabapentin 100 mg capsule 100 mg PO DIRECTED RF: 0 multivitamin Tablet 1 tab PO QAM RF: 0 hydroxyzine HCl 10 mg tablet 10 mg PO DAILY RF: 0 prazosin 2 mg capsule 2 mg PO DAILY RF: 0 clonazepam 1 mg tablet,disintegrating 1 mg PO BID PRN (Reason: anxiety) RF: 0 calcium citrate 200 mg (950 mg) tablet 400 mg PO BID RF: 0 diclofenac sodium 75 mg tablet,delayed release (DR/EC) 75 mg PO BID RF: 0 esomeprazole magnesium 40 mg capsule,delayed release(DR/EC) 40 mg PO DAILY RF: 0 Tresiba FlexTouch U-100 100 unit/mL (3 mL) insulin pen 12 unit subcut DAILY 30 Days Qty: 15 RF: 4 Fiasp FlexTouch U-100 Insulin 100 unit/mL (3 mL) insulin pen See Rx Instructions subcut .5 times a day 30 Days Qty: 15 RF: 6 Tirosint 88 mcg capsule 88 mcg PO DAILY 30 Days Qty: 30 RF: 8 (DME) pen needle, diabetic [BD Cherelle 2nd Gen Pen Needle] 32 gauge x 5/32 needle See Rx Instructions .MEDSUPPLY Qty: 200 RF: 7 Lyumjev KwikPen U-100 Insulin 100 unit/mL insulin pen See Rx Instructions subcut .5 times a day 30 Days Qty: 15 RF: 6 metoprolol succinate 25 mg tablet extended release 24 hr 12.5 mg PO DAILY RF: 0 Referrals: Pascual Darnell MD [Primary Care Provider] - 2 days
[2020-12-08 23:25] LABS: Glucose Urine UA 500 MG/DL (NEG); Leukocyte Esterase Urine NEG (NEG); Nitrite Urine NEG (NEG); PH 6.5 (5.0-8.0); Urine Blood NEG (NEG); Urine Ketones NEG (NEG); Urine Protein NEG (NEG-TRACE)
[2020-12-08 23:30] LABS: Appearance Urine CLEAR; Color Urine YELLOW; UACC Culture Trigger NO
--- NOTE | 2020-12-09 06:39 | PC.NURSE ---
unable to reach pt son x 2, pt w/ no other options for transport home. [facility] states they will be available at 0730. pt updated
== END 2020-12-09 07:19 | disposition home or self-care (01) ==
PROVIDERS: Emergency Provider Emergency Medicine; PCP Internal Medicine
DX: B34.9 Viral infection, unspecified (principal); Z20.822 Contact with and (suspected) exposure to COVID-19; E10.9 Type 1 diabetes mellitus without complications; I10 Essential (primary) hypertension; E78.5 Hyperlipidemia, unspecified; Z98.84 Bariatric surgery status; Z79.4 Long term (current) use of insulin; Z79.899 Other long term (current) drug therapy; Z79.02 Long term (current) use of antithrombotics/antiplatelets
CPT/HCPCS: 36415; 71045; 80048; 81003; 82947; 85025; 87635; 96360; 99284

== ENCOUNTER 2021-01-01 10:51 | Inpatient (IN) | payer MEDICARE, SELFPAY ==
--- NOTE | ~2021-01-01 | US_ITS ---
EXAMINATION: US ABDOMEN COMPLETE CLINICAL INFORMATION: Right upper quadrant pain, elevated white blood cells. COMPARISON: 05/28/2018 abdominal ultrasound. TECHNIQUE: Real-time imaging of the abdominal viscera. FINDINGS: PANCREAS: Visualized portions unremarkable. ABDOMINAL AORTA: Visualized portions unremarkable. INFERIOR VENA CAVA: Visualized portions unremarkable. LIVER: Unremarkable. GALLBLADDER: The gallbladder shows mild diffuse mural thickening up to 0.3 cm. Some areas of heterogeneity are seen with mural based artifact. Multiple small dependent gallstones are seen. No significant pericholecystic fluid. Color Doppler showed no abnormal vascular flow. COMMON BILE DUCT: 0.2 cm proximally. RIGHT KIDNEY: 8.3 cm. Unremarkable. LEFT KIDNEY: 10.1 cm. Unremarkable. SPLEEN: 7.7 cm. Unremarkable. FREE FLUID: None. US/US abdomen complete IMPRESSION: Cholelithiasis. Mild mural thickening and irregularity represents interval worsening from 2019 study. These findings are nonspecific and could represent chronic changes secondary to the presence of the gallstones. Acute cholecystitis cannot be excluded given the patient's symptoms.
--- NOTE | ~2021-01-01 | CT_ITS ---
EXAMINATION: CT ABDOMEN AND PELVIS WITH CONTRAST CLINICAL INFORMATION: Abdominal pain, question cholecystitis, question pancreatitis, question pyelonephritis COMPARISON: Ultrasound 01/01/2021, CT 06/08/2017 TECHNIQUE: Multidetector volumetric images were obtained from the superior aspect of the liver through the pubic symphysis following administration 85 mL of Omnipaque 350 intravenous contrast. Sagittal and coronal reformatted images were obtained on the technologist's workstation. Oral contrast: No This CT examination was performed using dose optimization techniques as appropriate, variously including the following: *Automated exposure control *Adjustment of mA and/or kV according to patient size (this includes techniques or standardized protocols for targeted exams where dose is matched to indication/reason for exam; i.e. extremities or head) *Use of iterative reconstruction technique DLP: 588 mGy-cm FINDINGS: LUNG BASES: The visualized lung bases are unremarkable. Coronary artery calcifications are present. LIVER, GALLBLADDER, AND BILIARY TREE: The liver is normal in size, shape, and attenuation. No focal hepatic lesion or biliary ductal dilatation is present. The gallbladder is distended and has a thick-walled appearance with some adjacent stranding, raising suspicion for cholecystitis. No densely calcified gallstones are seen, though cholelithiasis was identified on ultrasound from 01/01/2021. PANCREAS: Parenchymal atrophy is noted. No surrounding stranding to suggest pancreatitis. SPLEEN: Unremarkable. ADRENAL GLANDS: Unremarkable. KIDNEYS AND URETERS: The kidneys are normal in size, shape, and attenuation. No hydronephrosis, hydroureter, or calculi seen. Tiny hypodensity in the upper left kidney is too small to characterize. No perinephric stranding. BLADDER: Unremarkable. GASTROINTESTINAL TRACT: Status post gastric bypass surgery. No evidence of bowel obstruction. No significant bowel wall thickening is seen. There is trace pelvic free fluid. No free air is seen. ABDOMINAL WALL: No significant hernia is appreciated. LYMPH NODES: Normal. VASCULAR: Unremarkable. PELVIC VISCERA: Unremarkable. OSSEOUS STRUCTURES: Degenerative changes are noted in the spine. CT/CT abdomen pelvis w con IMPRESSION: 1. Distended, thick-walled gallbladder with adjacent stranding raising suspicion for cholecystitis. Though no densely calcified gallstones are seen on CT, gallstones were visible on yesterday's ultrasound. 2. No findings of pancreatitis or pyelonephritis. 3. Status post gastric bypass surgery.
[2021-01-01 13:04] VITALS: BP 136/56; PULSE 98; RESP 16; TEMP 36.4; O2SAT 98; BMI 40.4
--- NOTE | 2021-01-01 13:29 | ED.ABDPAIN ---
HPI - Abdominal Pain General Chief Complaint: Abdominal Pain Stated Complaint: ABD PAIN Time Seen by Provider: 01/01/21 13:06 Related Data Home Medications Medication Instructions Recorded Confirmed venlafaxine 150 mg 150 mg PO DAILY cap 01/28/20 01/02/21 capsule,extended release 24 hr (Effexor XR) aripiprazole 20 mg tablet 20 mg PO BEDTIME 02/17/20 01/02/21 blood sugar diagnostic #10 ea 02/17/20 01/02/21 gabapentin 100 mg capsule 100 mg PO BID 02/17/20 01/02/21 hydroxyzine HCl 10 mg tablet 10 mg PO DAILY tab 02/22/20 01/02/21 prazosin 2 mg capsule 4 mg PO BEDTIME cap 05/12/20 01/02/21 calcium citrate 200 mg (950 mg) 400 mg PO BID 08/28/20 01/02/21 tablet diclofenac sodium 75 mg 75 mg PO BID 08/28/20 01/02/21 tablet,delayed release esomeprazole magnesium 40 mg 40 mg PO DAILY 08/28/20 01/02/21 capsule,delayed release clonazepam 0.5 mg tablet 1 tab PO Q8H PRN 01/02/21 01/02/21 insulin aspart 2 - 15 unit SUBCUT QID 01/02/21 01/02/21 (niacinamide)(U-100) 100 unit/mL(3 mL) subcutaneous pen (Fiasp FlexTouch U-100 Insulin) sucralfate 1 gram tablet 1 tab PO BID 01/02/21 01/02/21 Previous Rx's Medication Instructions Recorded atorvastatin 80 mg tablet 80 mg PO DAILY 30 Days #30 tab 01/28/20 BD Cherelle 2nd Gen Pen Needle 32 #200 ea NS 06/12/20 gauge x 5/32 (pen needle, diabetic) insulin syringe-needle U-100 0.3 #100 ea 06/13/20 mL 31 gauge x 5/16 (BD Insulin Syringe Ultra-Fine) Dexcom G6 Sensor (blood-glucose #3 ea NS 07/26/20 sensor) clopidogrel 75 mg tablet 75 mg PO QAM #30 tab 09/28/20 amlodipine 10 mg tablet 10 mg PO DAILY 30 Days #30 tab 10/10/20 blood sugar diagnostic (FreeStyle #200 ea 10/25/20 Lite Strips) Tirosint 88 mcg capsule 88 mcg PO DAILY 30 Days #30 cap NS 10/30/20 (levothyroxine) insulin degludec 100 unit/mL (3 12 unit SUBCUT DAILY 30 Days #15 ml 10/30/20 mL) subcutaneous pen (Tresiba FlexTouch U-100 insulin) carvedilol 6.25 mg tablet 6.25 mg PO BID 90 Days #180 tab 11/03/20 furosemide 20 mg tablet 20 mg PO QAM #90 tab 11/03/20 cholecalciferol (vitamin D3) 50 50 mcg PO DAILY 30 Days #30 cap 12/21/20 mcg (2,000 unit) capsule Allergies Allergy/AdvReac Type Severity Reaction Status Date / Time lorazepam [LORAZEPAM] Allergy Severe DELIRIUM Verified 01/02/21 08:23 celecoxib [From Celebrex] Allergy Intermediate ITCHING Verified 01/02/21 08:23 tramadol [TRAMADOL] Allergy Intermediate ITCHING Verified 01/02/21 08:23 zolpidem [Ambien] Allergy Unknown unknown Verified 01/02/21 08:23 Physical Exam Vital Signs: Vital Signs: Last Vital Signs Temp 99.1 F 01/02/21 15:44 Pulse 89 01/02/21 15:44 Resp 17 01/02/21 15:44 BP 144/62 H 01/02/21 15:44 Pulse Ox 92 01/02/21 15:44 Body Mass Index 40.4 Course Course Course Narrative: 13pm - 70-year-old female presenting to the ED with complaints of right upper quadrant abdominal pain over the past 3 days worse today with associated nausea/vomiting. Denies any actual diarrhea. Denies recent travel or sick contacts. Is vaccinated to COVID. Denies possible bad food exposure. On exam patient is alert and oriented x3. Not in any acute distress. Vital signs are stable within normal limits. CV RRR. Lungs CTA Patient mild tenderness up patient to right upper quadrant.. NO CVAT. Patient was sent back to the waiting room and labs, COVID/RSV/flu swab and UA were ordered at this time. MDM - Abdominal Pain Lab Data Result diagrams: 01/02/21 07:55 01/02/21 07:55 Labs: Lab Results 01/01/21 01/01/21 01/01/21 Range/Units 15:20 15:20 15:20 WBC 21.1 H (4.8-10.8) X10*3/uL RBC 3.89 L (4.20-5.50) X10*6/uL Hgb 10.8 L (12.0-16.0) g/dl Hct 32.9 L (37-47) % MCV 84.6 (80-98) fL MCH 27.8 (27.0-33.0) pg MCHC 32.8 (31.0-35.0) g/dl RDW 15.9 (11.0-16.0) % Plt Count 233 D (160-400) X10*3/uL MPV 11.7 (9.4-12.3) fL Immature Gran % (Auto) 0.7 H (0.0-0.4) % Neut % (Auto) 79.7 H (45-73) % Lymph % (Auto) 9.4 L (20-40) % [place] % (Auto) 8.4 (2-11) % Eos % (Auto) 1.4 (0-4) % Baso % (Auto) 0.4 (0-2) % Lymph # (Auto) 2.0 (1.2-4.9) X10*3/uL [place] # (Auto) 1.8 H (0.1-1.2) X10*3/uL Eos # (Auto) 0.3 (0.0-0.4) X10*3/uL Baso # (Auto) 0.1 (0.0-0.2) X10*3/uL Abs Immat Gran (auto) 0.15 H (0.00-0.03) X10*3/uL Absolute Neuts (auto) 16.8 H (2.0-8.3) X10*3/uL Absolute Nucleated RBC 0.000 (0.0-0.012) X10*3/uL Nucleated RBC % (auto) 0.0 (0.0-0.2) /100WBC Smear Tech's Comments VERIFIED Hold Purple Top SEE NOTE PT 11.0 (9.9-13.0) SEC INR 1.0 (0.9-1.1) Sodium (135-145) mmol/L Potassium (3.3-5.1) mmol/L Chloride (96-108) mmol/L Carbon Dioxide (22-29) mmol/L Anion Gap (12-20) BUN (9-16) mg/dL Creatinine (0.5-1.4) mg/dL Estim Creat Clear Calc Estimated GFR POC Glucose (60-115) mg/dL Random Glucose (60-115) mg/dL Lactic Acid (0.5-2.0) mmol/L Calcium (8.4-10.2) mg/dL Magnesium (1.6-2.6) mg/dL Total Bilirubin (0.0-1.0) mg/dL AST (5-31) U/L ALT (0-31) U/L Alkaline Phosphatase (39-117) U/L Total Protein (6.5-8.0) g/dL Albumin (3.5-5.0) g/dL Lipase (8-78) U/L Urine Color Urine Appearance Urine pH (5.0-8.0) Ur Specific [place] (1.005-1.025) Urine Protein (NEG-TRACE) MG/DL Urine Glucose (UA) (NEG) MG/DL Urine Ketones (NEG) MG/DL Urine Blood (NEG) Urine Nitrite (NEG) Ur Leukocyte Esterase (NEG) Coronavirus (PCR) (Negative) Influenza Type A (PCR) (Negative) Influenza Type B (PCR) (Negative) RSV RNA Qual (PCR) (Negative) 01/01/21 01/01/21 01/01/21 Range/Units 15:20 21:45 23:00 WBC (4.8-10.8) X10*3/uL RBC (4.20-5.50) X10*6/uL Hgb (12.0-16.0) g/dl Hct (37-47) % MCV (80-98) fL MCH (27.0-33.0) pg MCHC (31.0-35.0) g/dl RDW (11.0-16.0) % Plt Count (160-400) X10*3/uL MPV (9.4-12.3) fL Immature Gran % (Auto) (0.0-0.4) % Neut % (Auto) (45-73) % Lymph % (Auto) (20-40) % [place] % (Auto) (2-11) % Eos % (Auto) (0-4) % Baso % (Auto) (0-2) % Lymph # (Auto) (1.2-4.9) X10*3/uL [place] # (Auto) (0.1-1.2) X10*3/uL Eos # (Auto) (0.0-0.4) X10*3/uL Baso # (Auto) (0.0-0.2) X10*3/uL Abs Immat Gran (auto) (0.00-0.03) X10*3/uL Absolute Neuts (auto) (2.0-8.3) X10*3/uL Absolute Nucleated RBC (0.0-0.012) X10*3/uL Nucleated RBC % (auto) (0.0-0.2) /100WBC Smear Tech's Comments Hold Purple Top PT (9.9-13.0) SEC INR (0.9-1.1) Sodium 139 (135-145) mmol/L Potassium 3.7 (3.3-5.1) mmol/L Chloride 98 (96-108) mmol/L Carbon Dioxide 32 H (22-29) mmol/L Anion Gap 13 (12-20) BUN 17 H (9-16) mg/dL Creatinine 1.24 (0.5-1.4) mg/dL Estim Creat Clear Calc 41.4 Estimated GFR 43 POC Glucose (60-115) mg/dL Random Glucose 274 H (60-115) mg/dL Lactic Acid 1.1 (0.5-2.0) mmol/L Calcium 9.7 D (8.4-10.2) mg/dL Magnesium 1.9 (1.6-2.6) mg/dL Total Bilirubin 0.5 (0.0-1.0) mg/dL AST 21 D (5-31) U/L ALT 23 (0-31) U/L Alkaline Phosphatase 153 H (39-117) U/L Total Protein 6.2 L (6.5-8.0) g/dL Albumin 3.7 (3.5-5.0) g/dL Lipase 7 L (8-78) U/L Urine Color YELLOW Urine Appearance CLEAR Urine pH 6.0 (5.0-8.0) Ur Specific [place] 1.015 (1.005-1.025) Urine Protein TRACE (NEG-TRACE) MG/DL Urine Glucose (UA) 250 H (NEG) MG/DL Urine Ketones 5 (NEG) MG/DL Urine Blood NEG (NEG) Urine Nitrite NEG (NEG) Ur Leukocyte Esterase NEG (NEG) Coronavirus (PCR) (Negative) Influenza Type A (PCR) (Negative) Influenza Type B (PCR) (Negative) RSV RNA Qual (PCR) (Negative) 01/01/21 01/02/21 Range/Units 23:01 00:46 WBC (4.8-10.8) X10*3/uL RBC (4.20-5.50) X10*6/uL Hgb (12.0-16.0) g/dl Hct (37-47) % MCV (80-98) fL MCH (27.0-33.0) pg MCHC (31.0-35.0) g/dl RDW (11.0-16.0) % Plt Count (160-400) X10*3/uL MPV (9.4-12.3) fL Immature Gran % (Auto) (0.0-0.4) % Neut % (Auto) (45-73) % Lymph % (Auto) (20-40) % [place] % (Auto) (2-11) % Eos % (Auto) (0-4) % Baso % (Auto) (0-2) % Lymph # (Auto) (1.2-4.9) X10*3/uL [place] # (Auto) (0.1-1.2) X10*3/uL Eos # (Auto) (0.0-0.4) X10*3/uL Baso # (Auto) (0.0-0.2) X10*3/uL Abs Immat Gran (auto) (0.00-0.03) X10*3/uL Absolute Neuts (auto) (2.0-8.3) X10*3/uL Absolute Nucleated RBC (0.0-0.012) X10*3/uL Nucleated RBC % (auto) (0.0-0.2) /100WBC Smear Tech's Comments Hold Purple Top PT (9.9-13.0) SEC INR (0.9-1.1) Sodium (135-145) mmol/L Potassium (3.3-5.1) mmol/L Chloride (96-108) mmol/L Carbon Dioxide (22-29) mmol/L Anion Gap (12-20) BUN (9-16) mg/dL Creatinine (0.5-1.4) mg/dL Estim Creat Clear Calc Estimated GFR POC Glucose 292 H (60-115) mg/dL Random Glucose (60-115) mg/dL Lactic Acid (0.5-2.0) mmol/L Calcium (8.4-10.2) mg/dL Magnesium (1.6-2.6) mg/dL Total Bilirubin (0.0-1.0) mg/dL AST (5-31) U/L ALT (0-31) U/L Alkaline Phosphatase (39-117) U/L Total Protein (6.5-8.0) g/dL Albumin (3.5-5.0) g/dL Lipase (8-78) U/L Urine Color Urine Appearance Urine pH (5.0-8.0) Ur Specific [place] (1.005-1.025) Urine Protein (NEG-TRACE) MG/DL Urine Glucose (UA) (NEG) MG/DL Urine Ketones (NEG) MG/DL Urine Blood (NEG) Urine Nitrite (NEG) Ur Leukocyte Esterase (NEG) Coronavirus (PCR) NEGATIVE (Negative) Influenza Type A (PCR) NEGATIVE (Negative) Influenza Type B (PCR) NEGATIVE (Negative) RSV RNA Qual (PCR) NEGATIVE (Negative) Discharge Plan Discharge Clinical Impression: Cholecystitis Patient Disposition: Admitted As Inpatient Discharge Date/Time: 01/02/21 07:38 [facility] Past Medical History Medical History Anxiety Atherosclerotic cardiovascular disease Cholecystitis Depression Diabetes type 1, uncontrolled Dyslipidemia Elevated liver function tests Essential hypertension Fibromyalgia Folliculitis Rona's disease History of myocardial infarction Hyperlipidemia, unspecified Hyperparathyroidism due to vitamin D deficiency Hypertension 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 Hypothyroidism Intestinal malabsorption following gastrectomy NSTEMI (non-ST elevated myocardial infarction) Obesity (BMI 30-39.9) Surgical History H/O gastric bypass History of bladder suspension procedure Hx of appendectomy Status post gastric bypass for obesity Status post laser cataract surgery of both eyes Family History Family History Father No problems noted. Mother No problems noted. Social History Social History Alcohol intake: never Currently Displaying Signs/Symptoms of Drug Intoxication Withdrawal: No Advance Directives: No Advance Directives Information Provided: Yes Do you have thoughts of harming others: None Do you have a plan to hurt others: No Plan service: No Current occupational status: disabled
[2021-01-01 15:36] LABS: Basophils Absolute Auto 0.1 X10*3/uL (0.0-0.2); Basophils Percent Auto 0.4 % (0-2); Eosinophils Absolute Auto 0.3 X10*3/uL (0.0-0.4); Eosinophils Percent Auto 1.4 % (0-4); Hematocrit 32.9 % (37-47); Hemoglobin 10.8 g/dl (12.0-16.0); Imm Gran Abs Auto 0.15 X10*3/uL (0.00-0.03); Imm Gran Pct Auto 0.7 % (0.0-0.4); Lymphocytes Percent Auto 9.4 % (20-40); MANUAL DIFF FLAG SCAN; Mean Corpuscular HGB Conc 32.8 g/dl (31.0-35.0); Mean Corpuscular Hemoglobin 27.8 pg (27.0-33.0); Mean Corpuscular Volume 84.6 fL (80-98); Mean Platelet Volume 11.7 fL (9.4-12.3); Monocytes Absolute Auto 1.8 X10*3/uL (0.1-1.2); Monocytes Percent Auto 8.4 % (2-11); Neutrophils Absolute Auto 16.8 X10*3/uL (2.0-8.3); Neutrophils Percent Auto 79.7 % (45-73); Platelet Count 233 X10*3/uL (160-400); Red Blood Count 3.89 X10*6/uL (4.20-5.50); Red Cell Distribution Width 15.9 % (11.0-16.0); SCAN SMEAR FLAG 1; White Blood Count 21.1 X10*3/uL (4.8-10.8)
[2021-01-01 15:49] LABS: Alanine Aminotransferase 23 U/L (0-31); Albumin Level 3.7 g/dL (3.5-5.0); Alkaline Phosphatase 153 U/L (39-117); Anion Gap 13 (12-20); Aspartate Amino Transferase 21 U/L (5-31); Bilirubin Total 0.5 mg/dL (0.0-1.0); Blood Urea Nitrogen 17 mg/dL (9-16); Calcium 9.7 mg/dL (8.4-10.2); Carbon Dioxide 32 mmol/L (22-29); Chloride 98 mmol/L (96-108); Creatinine Clr Calc Pharmacy 41.4; Estimated Glomerular Filt Rate 43; Glucose Random 274 mg/dL (60-115); Lipase 7 U/L (8-78); Magnesium 1.9 mg/dL (1.6-2.6); Potassium 3.7 mmol/L (3.3-5.1); Sodium 139 mmol/L (135-145); Total Protein 6.2 g/dL (6.5-8.0)
[2021-01-01 16:24] LABS: SLIDE REVIEW VERIFIED
[2021-01-01 18:45] VITALS: BP 171/74; PULSE 84; RESP 16; TEMP 35.8; O2SAT 99
[2021-01-01 22:10] LABS: Lactic Acid 1.1 mmol/L (0.5-2.0)
[2021-01-01] MEDS: diphenhydrAMINE HCL 50 MG/ML VIAL 25 MG IVPUSH (22:43)
[2021-01-01] MEDS: Morphine Sulfate 2 MG/ML CARTRIDGE IVPUSH (22:45)
[2021-01-01] MEDS: Piperacillin Sodium/Tazobactam 3.375 GM in 0.9 % Sodium Chloride 50 ML IV (22:53)
[2021-01-01 23:12] LABS: Appearance Urine CLEAR; Color Urine YELLOW; Glucose Urine UA 250 MG/DL (NEG); Leukocyte Esterase Urine NEG (NEG); Nitrite Urine NEG (NEG); Specific Gravity - Urine 1.015 (1.005-1.025); Urine Blood NEG (NEG); Urine Ketones 5 MG/DL (NEG); Urine Protein TRACE MG/DL (NEG-TRACE)
[2021-01-01 23:13] LABS: UACC Culture Trigger NO
[2021-01-01 23:25] VITALS: BP 136/63; PULSE 84; RESP 16; O2SAT 94
[2021-01-01 23:52] VITALS: BP 134/63; PULSE 74; RESP 16; TEMP 37.1; O2SAT 98
[2021-01-01] MEDS: Morphine Sulfate 4 MG/ML CARTRIDGE IVPUSH (23:52)
[2021-01-02] VITALS (12 sets, daily range): BP systolic 129–163; BP diastolic 47–75; PULSE 69–89; RESP 16–20; TEMP 35.9–37.3; O2SAT 88–99
[2021-01-02] MEDS: iohexoL 350 MG/ML 100 ML INFUS..BTL 85 ML IV (00:14)
[2021-01-02 00:50] LABS: Glucose, Whole Blood 292 mg/dL (60-115)
[2021-01-02 00:54] LABS: Influenza A PCR NEGATIVE (Negative); Influenza B PCR NEGATIVE (Negative); Resp Syncy Virus RNA Qual PCR NEGATIVE (Negative); SARS COV2 PCR INHOUSE NEGATIVE (Negative)
--- NOTE | 2021-01-02 01:27 | ED.ABDPAIN ---
HPI - Abdominal Pain General Chief Complaint: Abdominal Pain Stated Complaint: ABD PAIN Time Seen by Provider: 01/01/21 13:06 Source: patient Mode of arrival: ambulatory Limitations: no limitations History of Present Illness HPI narrative: Patient presents to ED for right upper quadrant pain for the past 3 days with nausea and vomiting. Patient states green bile. Patient denies any lower abdominal pain, dysuria, hematuria, flank pain. Patient states she had appendix removed and gastric bypass per MD elicited complaint: abdominal pain Related Data Home Medications Medication Instructions Recorded Confirmed albuterol sulfate 90 mcg/actuation 0 mcg INHALATION AC 01/28/20 10/30/20 aerosol inhaler clonidine HCl 0.1 mg tablet 0.1 mg PO DIRECTED 01/28/20 10/30/20 pantoprazole 40 mg tablet,delayed 40 mg PO DAILY 01/28/20 10/30/20 release (Protonix) ranitidine HCl 150 mg tablet 150 mg PO DAILY tab 01/28/20 10/30/20 sucralfate 100 mg/mL oral 10 ml PO Q6H 01/28/20 10/30/20 suspension venlafaxine 150 mg 300 mg PO DAILY cap 01/28/20 10/30/20 capsule,extended release 24 hr (Effexor XR) aripiprazole 20 mg tablet 20 mg PO BEDTIME 02/17/20 10/30/20 blood sugar diagnostic #10 ea 02/17/20 10/30/20 gabapentin 100 mg capsule 100 mg PO DIRECTED 02/17/20 10/30/20 multivitamin 1 tab PO QAM 02/17/20 10/30/20 hydroxyzine HCl 10 mg tablet 10 mg PO DAILY tab 02/22/20 10/30/20 metoprolol succinate 25 mg 12.5 mg PO DAILY 02/22/20 10/30/20 tablet,extended release 24 hr acetaminophen 300 mg-codeine 30 mg 1 tab PO Q8H PRN 04/18/20 10/30/20 tablet prazosin 2 mg capsule 2 mg PO DAILY cap 05/12/20 10/30/20 calcium citrate 200 mg (950 mg) 400 mg PO BID 08/28/20 10/30/20 tablet clonazepam 1 mg disintegrating 1 mg PO BID PRN 08/28/20 10/30/20 tablet diclofenac sodium 75 mg 75 mg PO BID 08/28/20 10/30/20 tablet,delayed release esomeprazole magnesium 40 mg 40 mg PO DAILY 08/28/20 10/30/20 capsule,delayed release Previous Rx's Medication Instructions Recorded atorvastatin 80 mg tablet 80 mg PO DAILY 30 Days #30 tab 01/28/20 BD Cherelle 2nd Gen Pen Needle 32 #200 ea NS 06/12/20 gauge x 5/32 (pen needle, diabetic) Haydeeumsaniav TiaikPen U-100 Insulin 100 See Rx Instructions SUBCUT .5 06/12/20 unit/mL subcutaneous (insulin times a day 30 Days #15 ml NS lispro-aabc) insulin syringe-needle U-100 0.3 #100 ea 06/13/20 mL 31 gauge x 5/16 (BD Insulin Syringe Ultra-Fine) calcium citrate 500 mg PO BID 30 Days #120 tab 07/13/20 Dexcom G6 Sensor (blood-glucose #3 ea NS 07/26/20 sensor) clopidogrel 75 mg tablet 75 mg PO QAM #30 tab 09/28/20 amlodipine 10 mg tablet 10 mg PO DAILY 30 Days #30 tab 10/10/20 blood sugar diagnostic (FreeStyle #200 ea 10/25/20 Lite Strips) Tirosint 88 mcg capsule 88 mcg PO DAILY 30 Days #30 cap NS 10/30/20 (levothyroxine) insulin aspart See Rx Instructions SUBCUT .5 10/30/20 (niacinamide)(U-100) 100 unit/mL(3 times a day 30 Days #15 ml mL) subcutaneous pen (Fiasp FlexTouch U-100 Insulin) insulin degludec 100 unit/mL (3 12 unit SUBCUT DAILY 30 Days #15 ml 10/30/20 mL) subcutaneous pen (Tresiba FlexTouch U-100 insulin) carvedilol 6.25 mg tablet 6.25 mg PO BID 90 Days #180 tab 11/03/20 furosemide 20 mg tablet 20 mg PO QAM #90 tab 11/03/20 cholecalciferol (vitamin D3) 50 50 mcg PO DAILY 30 Days #30 cap 12/21/20 mcg (2,000 unit) capsule Allergies Allergy/AdvReac Type Severity Reaction Status Date / Time lorazepam [LORAZEPAM] Allergy Severe DELIRIUM Verified 08/28/20 13:25 celecoxib [From Celebrex] Allergy Intermediate ITCHING Verified 08/28/20 13:25 tramadol [TRAMADOL] Allergy Intermediate ITCHING Verified 08/28/20 13:25 zolpidem [Ambien] Allergy Unknown unknown Verified 08/28/20 13:25 Review of Systems Review of Systems Yes all other systems are reviewed and are negative Constitutional: Reports as per HPI and Reports no additional constitutional complaints Eyes: Reports as per HPI and Reports no additional eye complaints Reports system reviewed and no additional complaints, except as documented and Reports as per HPI Cardiovascular: Reports as per HPI and Reports no additional cardiovascular complaints Respiratory: Reports as per HPI and Reports no additional respiratory complaints Gastrointestinal: Reports as per HPI, Reports no additional gastrointestinal complaints, Reports abdominal pain (Right upper quadrant), Reports nausea and Reports vomiting Genitourinary: Reports no additional female genitourinary complaints and Reports as per HPI Physical Exam Vital Signs: Vital Signs: Last Vital Signs Temp 98.8 F 01/01/21 23:52 Pulse 74 01/01/21 23:52 Resp 16 01/01/21 23:52 BP 134/63 01/01/21 23:52 Pulse Ox 98 01/01/21 23:52 Body Mass Index 40.4 Const: General: cooperative, healthy appearing, comfortable, no acute distress, well developed, alert, awake and Physically active Orientation/consciousness: oriented to time and patient oriented x3 HENMT: Head: Yes normal to inspection, Yes No palpable skull fracture present, Yes normocephalic and Yes atraumatic Eyes: General: appearance normal, both eyes and all related structures Neck: Neck: Yes normal visual inspection, Yes full ROM, Yes no lymphadenopathy, Yes no meningeal signs, Yes trachea midline, Yes supple and No tender Chest: Chest palpation & inspection: normal inspection of the chest and normal palpation of entire chest wall Resp: Effort & Inspection: normal respiratory effort and able to speak in complete sentences Auscultation: clear to auscultation bilaterally Cardio: Jugular venous distension: no JVD Heart sounds: S1 normal heart sound present and S2 normal heart sound present GI: Inspection: Yes normal to inspection and No abdominal wall ecchymosis Palpation (GI): Tenderness to palpation present (GI) in the RUQ and Bailey's sign positive, no guarding and not rigid : General: No CVA tenderness and Yes no CVA tenderness Back/Spine/Pelvis: Back: no CVA tenderness, No CVA tenderness and No back tenderness Skin: General skin exam: no rashes or lesions noted and elasticity normal Neuro: General: oriented to time, patient oriented x3, no meningeal signs and CN's II-XI intact bilaterally Cranial nerves: Yes CN's II-XII intact bilaterally Extrem: General: Yes normal to inspection and Yes full ROM Psych: Appearance: grossly normal, well kempt and not disheveled Course Course Course Narrative: Patient had rapid medical screening will evaluate labs. Reevaluation(s) Reevaluation #1: Patient's elevated white blood cell count [id number] with positive Bailey sign will be sent for abdominal ultrasound to rule out cholecystitis. Zosyn ordered. Lactic blood culture ordered. Patient given pain meds. Time: 17:00 Reevaluation #2: Spoke with Dr. Pelayo and he was infomred of ultrasound results recommended patient have abdominal CT scan due to lack of ultrasound reading stating cholecystitis. Abdominal CT scan showed and confirm cholecystitis. Patient admitted to surgical service. Dr. Pelayo made aware. Patient presently stable sleeping in bed comfortably Time: 01:34 MDM - Abdominal Pain MDM Narrative Medical decision making narrative: Cholecystitis Lab Data Result diagrams: 01/01/21 15:20 01/01/21 15:20 Labs: Lab Results 01/01/21 01/01/21 01/01/21 Range/Units 15:20 15:20 15:20 WBC 21.1 H (4.8-10.8) X10*3/uL RBC 3.89 L (4.20-5.50) X10*6/uL Hgb 10.8 L (12.0-16.0) g/dl Hct 32.9 L (37-47) % MCV 84.6 (80-98) fL MCH 27.8 (27.0-33.0) pg MCHC 32.8 (31.0-35.0) g/dl RDW 15.9 (11.0-16.0) % Plt Count 233 D (160-400) X10*3/uL MPV 11.7 (9.4-12.3) fL Immature Gran % (Auto) 0.7 H (0.0-0.4) % Neut % (Auto) 79.7 H (45-73) % Lymph % (Auto) 9.4 L (20-40) % [place] % (Auto) 8.4 (2-11) % Eos % (Auto) 1.4 (0-4) % Baso % (Auto) 0.4 (0-2) % Lymph # (Auto) 2.0 (1.2-4.9) X10*3/uL [place] # (Auto) 1.8 H (0.1-1.2) X10*3/uL Eos # (Auto) 0.3 (0.0-0.4) X10*3/uL Baso # (Auto) 0.1 (0.0-0.2) X10*3/uL Abs Immat Gran (auto) 0.15 H (0.00-0.03) X10*3/uL Absolute Neuts (auto) 16.8 H (2.0-8.3) X10*3/uL Absolute Nucleated RBC 0.000 (0.0-0.012) X10*3/uL Nucleated RBC % (auto) 0.0 (0.0-0.2) /100WBC Smear Tech's Comments VERIFIED Hold Purple Top SEE NOTE PT 11.0 (9.9-13.0) SEC INR 1.0 (0.9-1.1) Sodium (135-145) mmol/L Potassium (3.3-5.1) mmol/L Chloride (96-108) mmol/L Carbon Dioxide (22-29) mmol/L Anion Gap (12-20) BUN (9-16) mg/dL Creatinine (0.5-1.4) mg/dL Estim Creat Clear Calc Estimated GFR POC Glucose (60-115) mg/dL Random Glucose (60-115) mg/dL Lactic Acid (0.5-2.0) mmol/L Calcium (8.4-10.2) mg/dL Magnesium (1.6-2.6) mg/dL Total Bilirubin (0.0-1.0) mg/dL AST (5-31) U/L ALT (0-31) U/L Alkaline Phosphatase (39-117) U/L Total Protein (6.5-8.0) g/dL Albumin (3.5-5.0) g/dL Lipase (8-78) U/L Urine Color Urine Appearance Urine pH (5.0-8.0) Ur Specific [place] (1.005-1.025) Urine Protein (NEG-TRACE) MG/DL Urine Glucose (UA) (NEG) MG/DL Urine Ketones (NEG) MG/DL Urine Blood (NEG) Urine Nitrite (NEG) Ur Leukocyte Esterase (NEG) Coronavirus (PCR) (Negative) Influenza Type A (PCR) (Negative) Influenza Type B (PCR) (Negative) RSV RNA Qual (PCR) (Negative) 01/01/21 01/01/21 01/01/21 Range/Units 15:20 21:45 23:00 WBC (4.8-10.8) X10*3/uL RBC (4.20-5.50) X10*6/uL Hgb (12.0-16.0) g/dl Hct (37-47) % MCV (80-98) fL MCH (27.0-33.0) pg MCHC (31.0-35.0) g/dl RDW (11.0-16.0) % Plt Count (160-400) X10*3/uL MPV (9.4-12.3) fL Immature Gran % (Auto) (0.0-0.4) % Neut % (Auto) (45-73) % Lymph % (Auto) (20-40) % [place] % (Auto) (2-11) % Eos % (Auto) (0-4) % Baso % (Auto) (0-2) % Lymph # (Auto) (1.2-4.9) X10*3/uL [place] # (Auto) (0.1-1.2) X10*3/uL Eos # (Auto) (0.0-0.4) X10*3/uL Baso # (Auto) (0.0-0.2) X10*3/uL Abs Immat Gran (auto) (0.00-0.03) X10*3/uL Absolute Neuts (auto) (2.0-8.3) X10*3/uL Absolute Nucleated RBC (0.0-0.012) X10*3/uL Nucleated RBC % (auto) (0.0-0.2) /100WBC Smear Tech's Comments Hold Purple Top PT (9.9-13.0) SEC INR (0.9-1.1) Sodium 139 (135-145) mmol/L Potassium 3.7 (3.3-5.1) mmol/L Chloride 98 (96-108) mmol/L Carbon Dioxide 32 H (22-29) mmol/L Anion Gap 13 (12-20) BUN 17 H (9-16) mg/dL Creatinine 1.24 (0.5-1.4) mg/dL Estim Creat Clear Calc 41.4 Estimated GFR 43 POC Glucose (60-115) mg/dL Random Glucose 274 H (60-115) mg/dL Lactic Acid 1.1 (0.5-2.0) mmol/L Calcium 9.7 D (8.4-10.2) mg/dL Magnesium 1.9 (1.6-2.6) mg/dL Total Bilirubin 0.5 (0.0-1.0) mg/dL AST 21 D (5-31) U/L ALT 23 (0-31) U/L Alkaline Phosphatase 153 H (39-117) U/L Total Protein 6.2 L (6.5-8.0) g/dL Albumin 3.7 (3.5-5.0) g/dL Lipase 7 L (8-78) U/L Urine Color YELLOW Urine Appearance CLEAR Urine pH 6.0 (5.0-8.0) Ur Specific [place] 1.015 (1.005-1.025) Urine Protein TRACE (NEG-TRACE) MG/DL Urine Glucose (UA) 250 H (NEG) MG/DL Urine Ketones 5 (NEG) MG/DL Urine Blood NEG (NEG) Urine Nitrite NEG (NEG) Ur Leukocyte Esterase NEG (NEG) Coronavirus (PCR) (Negative) Influenza Type A (PCR) (Negative) Influenza Type B (PCR) (Negative) RSV RNA Qual (PCR) (Negative) 01/01/21 01/02/21 Range/Units 23:01 00:46 WBC (4.8-10.8) X10*3/uL RBC (4.20-5.50) X10*6/uL Hgb (12.0-16.0) g/dl Hct (37-47) % MCV (80-98) fL MCH (27.0-33.0) pg MCHC (31.0-35.0) g/dl RDW (11.0-16.0) % Plt Count (160-400) X10*3/uL MPV (9.4-12.3) fL Immature Gran % (Auto) (0.0-0.4) % Neut % (Auto) (45-73) % Lymph % (Auto) (20-40) % [place] % (Auto) (2-11) % Eos % (Auto) (0-4) % Baso % (Auto) (0-2) % Lymph # (Auto) (1.2-4.9) X10*3/uL [place] # (Auto) (0.1-1.2) X10*3/uL Eos # (Auto) (0.0-0.4) X10*3/uL Baso # (Auto) (0.0-0.2) X10*3/uL Abs Immat Gran (auto) (0.00-0.03) X10*3/uL Absolute Neuts (auto) (2.0-8.3) X10*3/uL Absolute Nucleated RBC (0.0-0.012) X10*3/uL Nucleated RBC % (auto) (0.0-0.2) /100WBC Smear Tech's Comments Hold Purple Top PT (9.9-13.0) SEC INR (0.9-1.1) Sodium (135-145) mmol/L Potassium (3.3-5.1) mmol/L Chloride (96-108) mmol/L Carbon Dioxide (22-29) mmol/L Anion Gap (12-20) BUN (9-16) mg/dL Creatinine (0.5-1.4) mg/dL Estim Creat Clear Calc Estimated GFR POC Glucose 292 H (60-115) mg/dL Random Glucose (60-115) mg/dL Lactic Acid (0.5-2.0) mmol/L Calcium (8.4-10.2) mg/dL Magnesium (1.6-2.6) mg/dL Total Bilirubin (0.0-1.0) mg/dL AST (5-31) U/L ALT (0-31) U/L Alkaline Phosphatase (39-117) U/L Total Protein (6.5-8.0) g/dL Albumin (3.5-5.0) g/dL Lipase (8-78) U/L Urine Color Urine Appearance Urine pH (5.0-8.0) Ur Specific [place] (1.005-1.025) Urine Protein (NEG-TRACE) MG/DL Urine Glucose (UA) (NEG) MG/DL Urine Ketones (NEG) MG/DL Urine Blood (NEG) Urine Nitrite (NEG) Ur Leukocyte Esterase (NEG) Coronavirus (PCR) NEGATIVE (Negative) Influenza Type A (PCR) NEGATIVE (Negative) Influenza Type B (PCR) NEGATIVE (Negative) RSV RNA Qual (PCR) NEGATIVE (Negative) Discharge Plan Discharge Patient Disposition: Admitted As Inpatient [facility] Past Medical History Medical History Anxiety Atherosclerotic cardiovascular disease Depression Diabetes type 1, uncontrolled Dyslipidemia Elevated liver function tests Essential hypertension Fibromyalgia Folliculitis Rona's disease History of myocardial infarction Hyperlipidemia, unspecified Hyperparathyroidism due to vitamin D deficiency Hypertension 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 Hypothyroidism Intestinal malabsorption following gastrectomy NSTEMI (non-ST elevated myocardial infarction) Obesity (BMI 30-39.9) Surgical History H/O gastric bypass History of bladder suspension procedure Hx of appendectomy Status post gastric bypass for obesity Status post laser cataract surgery of both eyes Family History Family History Father No problems noted. Mother No problems noted. Social History Social History Alcohol intake: never Advance Directives: No Advance Directives Information Provided: Yes
[2021-01-02] MEDS: ondansetron HCL 4 MG/2 ML VIAL IVPUSH (02:39)
[2021-01-02] MEDS: Piperacillin Sodium/Tazobactam 3.375 GM in 0.9 % Sodium Chloride 50 ML IV ×4 (02:39→21:38)
[2021-01-02] MEDS: Morphine Sulfate 4 MG/ML CARTRIDGE 3 MG IVPUSH ×4 (02:39→23:05)
[2021-01-02 02:54] LABS: COVID-19 Test Negative (Negative); IDNOW Serial# 9DD0AD1C
--- NOTE | 2021-01-02 04:53 | P.HPGS_ITS ---
History of Present Illness History of Present Illness Date of Service: 01/03/21 Chief complaint: Cholecystitis, Preop evaluation Narrative: Brandie Santana is a 70 year old female whocame to the ED earlier tonight because of abdominal pain. She says she has had this for about 3-4 days now. She describes this as mostly on the right upper quadrant. She denies nausea or vomitting. She has multiple medical problems including chronic multifactorial anemia, coronary artery disease and thryoid disease. Review of Systems Constitutional: Constitutional: Denies chills and Denies fever(s) Cardiovascular: Cardiovascular: Denies chest pain, Denies dyspnea and Denies dyspnea on exertion Respiratory: Respiratory: Denies cough, Denies dyspnea and Denies dyspnea on exertion Gastrointestinal: Gastrointestinal: Denies hematochezia and Denies change in bowel habits Genitourinary: Genitourinary: Denies hematuria Musculoskeletal: Musculoskeletal: Denies back pain and Denies limited range of motion Neurologic: Denies focal weakness and Denies convulsions Psychiatric: Psychiatric: Denies depression and Denies mood swings PMFSH Past Medical History Medical History Anxiety Atherosclerotic cardiovascular disease Cholecystitis Depression Diabetes type 1, uncontrolled Dyslipidemia Elevated liver function tests Essential hypertension Fibromyalgia Folliculitis Rona's disease History of myocardial infarction Hyperlipidemia, unspecified Hyperparathyroidism due to vitamin D deficiency Hypertension 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 Hypothyroidism Intestinal malabsorption following gastrectomy NSTEMI (non-ST elevated myocardial infarction) Obesity (BMI 30-39.9) Family History Family History Father No problems noted. Mother No problems noted. Surgical History Surgical History H/O gastric bypass History of bladder suspension procedure Hx of appendectomy Status post gastric bypass for obesity Status post laser cataract surgery of both eyes Social History Social History Alcohol intake: never Currently Displaying Signs/Symptoms of Drug Intoxication Withdrawal: No Advance Directives: No Advance Directives Information Provided: Yes Do you have thoughts of harming others: None Do you have a plan to hurt others: No Plan service: No Current occupational status: disabled Meds Allergies Allergy/AdvReac Type Severity Reaction Status Date / Time lorazepam [LORAZEPAM] Allergy Severe DELIRIUM Verified 01/02/21 08:23 celecoxib [From Celebrex] Allergy Intermediate ITCHING Verified 01/02/21 08:23 tramadol [TRAMADOL] Allergy Intermediate ITCHING Verified 01/02/21 08:23 zolpidem [Ambien] Allergy Unknown unknown Verified 01/02/21 08:23 Active Medications: Current Medications Generic Name Dose Route Start Last Admin Trade Name Freq PRN Reason Stop Dose Admin Sodium Chloride 1,000 mls @ 80 mls/hr 01/02/21 01:15 Ns IVCONT .[id number] [facility] Morphine Sulfate 3 mg 01/02/21 01:11 01/02/21 02:39 Morphine Sulfate 4 Mg/Ml Cartridge IVPUSH 3 mg Q3H PRN Administration Pain, Severe (Pain Scale 7-10) Protocol Ondansetron HCl 4 mg 01/02/21 01:11 01/02/21 02:39 Ondansetron Hcl 4 Mg/2 Ml Vial IVPUSH 4 mg Q8H PRN Administration nausea Sodium Chloride 3 ml 01/02/21 08:00 0.9 % Sodium Chloride Flush 3 Ml Syringe IVFLUSH QSHIFT [facility] Home Medications Medication Instructions Recorded Confirmed Last Taken Type venlafaxine 150 mg 150 mg PO DAILY cap 01/28/20 01/02/21 Unknown History capsule,extended release 24 hr (Effexor XR) aripiprazole 20 mg tablet 20 mg PO BEDTIME 02/17/20 01/02/21 Unknown History blood sugar diagnostic #10 ea 02/17/20 01/02/21 Unknown History gabapentin 100 mg capsule 100 mg PO BID 02/17/20 01/02/21 Unknown History hydroxyzine HCl 10 mg tablet 10 mg PO DAILY tab 02/22/20 01/02/21 Unknown History prazosin 2 mg capsule 4 mg PO BEDTIME cap 05/12/20 01/02/21 Unknown History calcium citrate 200 mg (950 mg) 400 mg PO BID 08/28/20 01/02/21 Unknown History tablet diclofenac sodium 75 mg 75 mg PO BID 08/28/20 01/02/21 Unknown History tablet,delayed release esomeprazole magnesium 40 mg 40 mg PO DAILY 08/28/20 01/02/21 Unknown History capsule,delayed release clonazepam 0.5 mg tablet 1 tab PO Q8H PRN 01/02/21 01/02/21 Unknown History insulin aspart 2 - 15 unit SUBCUT QID 01/02/21 01/02/21 Unknown History (niacinamide)(U-100) 100 unit/mL(3 mL) subcutaneous pen (Fiasp FlexTouch U-100 Insulin) sucralfate 1 gram tablet 1 tab PO BID 01/02/21 01/02/21 Unknown History Physical Exam Vital Signs: Vital Signs: Last Vital Signs Temp 98.6 F 01/02/21 02:37 Pulse 84 01/02/21 02:37 Resp 16 01/02/21 02:37 BP 135/63 01/02/21 02:37 Pulse Ox 99 01/02/21 02:37 Body Mass Index 40.4 Const: Other: appears somewhat frail General: comfortable and no acute distress Orientation/consciousness: patient oriented x3 Neck: Neck: Yes no lymphadenopathy Resp: Auscultation: clear to auscultation bilaterally Cardio: Rhythm: regular rhythm GI: Palpation (GI): Soft to palpation, Tenderness to palpation present (GI) (on right upper quadrant) and no guarding Neuro: General: patient oriented x3 Results Results Labs: Short CBC 01/01/21 Range/Units 15:20 WBC 21.1 H (4.8-10.8) X10*3/uL Hgb 10.8 L (12.0-16.0) g/dl Hct 32.9 L (37-47) % Plt Count 233 D (160-400) X10*3/uL BMP 01/01/21 15:20 Sodium 139 Potassium 3.7 Chloride 98 Carbon Dioxide 32 H BUN 17 H Creatinine 1.24 Calcium 9.7 D Liver Function 01/01/21 Range/Units 15:20 Total Bilirubin 0.5 (0.0-1.0) mg/dL AST 21 D (5-31) U/L ALT 23 (0-31) U/L Alkaline Phosphatase 153 H (39-117) U/L Albumin 3.7 (3.5-5.0) g/dL Urine 01/01/21 Range/Units 23:00 Urine Color YELLOW Urine Appearance CLEAR Urine pH 6.0 (5.0-8.0) Ur Specific [place] 1.015 (1.005-1.025) Urine Protein TRACE (NEG-TRACE) MG/DL Urine Glucose (UA) 250 H (NEG) MG/DL Abdomen CT scan report/results: report reviewed and image reviewed CT scan - pelvis: report reviewed and image reviewed Abdominal ultrasound report/results: report reviewed and image reviewed Assessment and Plan (1) Cholecystitis: Status: Acute I have reviewed her CT and US images and these show GB wall thickening c/w cholecystitis. I had a long discussion with her about the option of cholecystectomy. I reviewd the technqiue of laparoscopic cholecystectomy and possible open. I reviewed the risks including but not limited to bleeding, infections injury to bowel/liver/bile duct, perioperative HI, as well as the benefits and alternatives. She does have a hx of coronary artery disease. After discussions with her, she wants to try to nonoperative treatment with IV antbiotics for now. I did explain to her that if she does not improve, she may need to undergo cholecystectomy. She otherwise has a benign exam. In the meantime, I will have her evaluated by cardiology as well. She is on Plavix so this will be held for now in the event that she will need surgery. Her CBC and LFTs will be followed. I have discussed the plan with her son [place]. Quality Stroke Does the patient have a stroke diagnosis?: No VTE Prior VTE?: No VTE Risk Level:: Medical - moderate - high VTE Device Contraindication: N/A - Device Ordered VTE Drug Contraindication: N/A - Med Ordered Procedures Date of Service Date of Service: 01/02/21
[2021-01-02 07:55] LABS: Glucose, Whole Blood 343 mg/dL (60-115)
[2021-01-02] MEDS: 0.9 % Sodium Chloride 1,000 ML 80 ML IVCONT ×2 (08:06→21:46)
[2021-01-02 08:28] LABS: Hematocrit 28.3 % (37-47); Hemoglobin 9.3 g/dl (12.0-16.0); Mean Corpuscular HGB Conc 32.9 g/dl (31.0-35.0); Mean Corpuscular Hemoglobin 27.5 pg (27.0-33.0); Mean Corpuscular Volume 83.7 fL (80-98); Mean Platelet Volume 11.7 fL (9.4-12.3); Platelet Count 213 X10*3/uL (160-400); Red Blood Count 3.38 X10*6/uL (4.20-5.50); Red Cell Distribution Width 15.6 % (11.0-16.0)
[2021-01-02 08:40] LABS: Alanine Aminotransferase 432 U/L (0-31); Alkaline Phosphatase 553 U/L (39-117); Anion Gap 11 (12-20); Aspartate Amino Transferase 888 U/L (5-31); Bilirubin Direct 0.9 mg/dL (0.0-0.5); Bilirubin Total 1.4 mg/dL (0.0-1.0); Blood Urea Nitrogen 14 mg/dL (9-16); Calcium 8.5 mg/dL (8.4-10.2); Carbon Dioxide 33 mmol/L (22-29); Chloride 95 mmol/L (96-108); Creatinine Clr Calc Pharmacy 46.2; Estimated Glomerular Filt Rate 49; Potassium 3.5 mmol/L (3.3-5.1); Sodium 135 mmol/L (135-145)
[2021-01-02 08:59] LABS: Glucose Random 354 mg/dL (60-115)
[2021-01-02] MEDS: Insulin Lispro 100 UNIT/ML 3 ML VIAL SUBCUT ×3 (09:04→21:41)
--- NOTE | 2021-01-02 09:25 | PHA.MEDREC ---
Pharmacy Consult ? Medication Reconciliation Pharmacy has completed the medication reconciliation. Polly Jeronimo, PharmD [phone]
--- NOTE | 2021-01-02 11:25 | MHC.CM.PN ---
pt lives alone in apt. she reports that she is independent in her care. she does have a son and family that live in the area and can help if she needs it, this will include a ride home at dc. pt denies the need for vna at dc. dc plan is home no svcs. cm to cont. to follow.
[2021-01-02 11:53] LABS: Glucose, Whole Blood 174 mg/dL (60-115)
--- NOTE | 2021-01-02 13:56 | PM.CNCAR ---
History of Present Illness History of Present Illness Date of Service: 01/02/21 Requesting physician: Tay Pelayo Chief complaint: Cholecystitis, Preop evaluation Narrative: 70-year-old female with background history of hypertension and diabetes who has history of non ST elevation UT for which she underwent cardiac catheterization. Cardiac catheterization showed mild coronary artery disease. She has previous bariatric surgery and it was advised that she does not use aspirin and was started on Plavix for that reason. She has been is on Plavix without any bleeding issues. She is now presenting with cholecystitis. She is denying chest discomfort shortness of breath. No other active issues other than right upper quadrant pain which is improving. [facility] Past Medical History Medical History Anxiety Atherosclerotic cardiovascular disease Cholecystitis Depression Diabetes type 1, uncontrolled Dyslipidemia Elevated liver function tests Essential hypertension Fibromyalgia Folliculitis Rona's disease History of myocardial infarction Hyperlipidemia, unspecified Hyperparathyroidism due to vitamin D deficiency Hypertension 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 Hypothyroidism Intestinal malabsorption following gastrectomy NSTEMI (non-ST elevated myocardial infarction) Obesity (BMI 30-39.9) Family History Family History Father No problems noted. Mother No problems noted. Surgical History Surgical History H/O gastric bypass History of bladder suspension procedure Hx of appendectomy Status post gastric bypass for obesity Status post laser cataract surgery of both eyes Social History Social History Alcohol intake: never Currently Displaying Signs/Symptoms of Drug Intoxication Withdrawal: No Advance Directives: No Advance Directives Information Provided: Yes Do you have thoughts of harming others: None Do you have a plan to hurt others: No Plan service: No Current occupational status: disabled Meds Allergies Allergy/AdvReac Type Severity Reaction Status Date / Time lorazepam [LORAZEPAM] Allergy Severe DELIRIUM Verified 01/02/21 08:23 celecoxib [From Celebrex] Allergy Intermediate ITCHING Verified 01/02/21 08:23 tramadol [TRAMADOL] Allergy Intermediate ITCHING Verified 01/02/21 08:23 zolpidem [Ambien] Allergy Unknown unknown Verified 01/02/21 08:23 Active Medications: Current Medications Generic Name Dose Route Start Last Admin Trade Name Freq PRN Reason Stop Dose Admin Amlodipine Besylate 10 mg 01/03/21 09:00 Amlodipine Besylate 10 Mg Tablet PO DAILY [facility] Protocol Aripiprazole 20 mg 01/02/21 21:00 Aripiprazole 20 Mg Tablet PO BEDTIME [facility] Atorvastatin Calcium 80 mg 01/03/21 09:00 Atorvastatin Calcium 80 Mg Tablet PO DAILY [facility] Carvedilol 6.25 mg 01/02/21 21:00 Carvedilol 6.25 Mg Tablet PO BID [facility] Protocol Clonazepam 0.5 mg 01/02/21 12:19 Clonazepam 0.5 Mg Tablet PO Q8H PRN anxiety Sodium Chloride 1,000 mls @ 80 mls/hr 01/02/21 01:15 01/02/21 13:53 Ns IVCONT Not Given .[id number] [facility] Piperacillin Sod/Tazobactam 50 mls @ 100 mls/hr 01/02/21 10:00 01/02/21 11:09 Sod 3.375 gm/ Sodium Chloride IV Infused Q6H [facility] Infusion Insulin Human Lispro 0 unit 01/02/21 11:30 01/02/21 12:38 Insulin Lispro 100 Unit/Ml 3 Ml Vial SUBCUT Not Given QIDACHS [facility] Protocol Levothyroxine Sodium 88 mcg 01/03/21 06:30 Levothyroxine Sodium 88 Mcg Tablet PO DAILY@0630 [facility] Morphine Sulfate 3 mg 01/02/21 01:11 01/02/21 08:12 Morphine Sulfate 4 Mg/Ml Cartridge IVPUSH 3 mg Q3H PRN Administration Pain, Severe (Pain Scale 7-10) Protocol Omeprazole 20 mg 01/03/21 06:30 Omeprazole 20 Mg Capsule.Dr PO DAILY@0630 [facility] Ondansetron HCl 4 mg 01/02/21 01:11 01/02/21 02:39 Ondansetron Hcl 4 Mg/2 Ml Vial IVPUSH 4 mg Q8H PRN Administration nausea Pharmacy Consult 1 each 01/02/21 08:18 Consult Rx Perform Med Rec MISCELLANE ONCE PRN Consult order Prazosin HCl 4 mg 01/02/21 21:00 Prazosin Hcl 1 Mg Capsule PO BEDTIME [facility] Protocol Sodium Chloride 3 ml 01/02/21 08:00 01/02/21 08:06 0.9 % Sodium Chloride Flush 3 Ml Syringe IVFLUSH Not Given QSHIFT [facility] Venlafaxine HCl 150 mg 01/03/21 09:00 Venlafaxine Hcl Er 150 Mg Cap.Er.24h PO DAILY [facility] Vitamin D 50 mcg 01/03/21 09:00 Cholecalciferol (Vitamin D3) 25 Mcg Tablet PO DAILY [facility] Home Medications Medication Instructions Recorded Confirmed Last Taken Type venlafaxine 150 mg 150 mg PO DAILY cap 01/28/20 01/02/21 Unknown History capsule,extended release 24 hr (Effexor XR) aripiprazole 20 mg tablet 20 mg PO BEDTIME 02/17/20 01/02/21 Unknown History blood sugar diagnostic #10 ea 02/17/20 01/02/21 Unknown History gabapentin 100 mg capsule 100 mg PO BID 02/17/20 01/02/21 Unknown History hydroxyzine HCl 10 mg tablet 10 mg PO DAILY tab 02/22/20 01/02/21 Unknown History prazosin 2 mg capsule 4 mg PO BEDTIME cap 05/12/20 01/02/21 Unknown History calcium citrate 200 mg (950 mg) 400 mg PO BID 08/28/20 01/02/21 Unknown History tablet diclofenac sodium 75 mg 75 mg PO BID 08/28/20 01/02/21 Unknown History tablet,delayed release esomeprazole magnesium 40 mg 40 mg PO DAILY 08/28/20 01/02/21 Unknown History capsule,delayed release clonazepam 0.5 mg tablet 1 tab PO Q8H PRN 01/02/21 01/02/21 Unknown History insulin aspart 2 - 15 unit SUBCUT QID 01/02/21 01/02/21 Unknown History (niacinamide)(U-100) 100 unit/mL(3 mL) subcutaneous pen (Fiasp FlexTouch U-100 Insulin) sucralfate 1 gram tablet 1 tab PO BID 01/02/21 01/02/21 Unknown History Physical Exam Vital Signs: Vital Signs: Last Vital Signs Temp 97.7 F 01/02/21 08:00 Pulse 69 01/02/21 12:00 Resp 20 01/02/21 12:00 BP 137/47 L 01/02/21 12:00 Pulse Ox 96 01/02/21 12:00 Body Mass Index 40.4 GENERAL APPEARANCE: in no acute distress, pleasant. NECK: no carotid bruit, no jugular venous distention. SKIN: no suspicious lesions, warm and dry. HEART: no murmurs, regular rate and rhythm. LUNGS: clear to auscultation bilaterally. ABDOMEN: soft, nontender. EXTREMITIES: no edema. PERIPHERAL PULSES: equal. NEUROLOGIC: No gross deficits, AAO X 3 Results Labs and Meds Result diagrams: 01/02/21 07:55 01/02/21 07:55 Lab results: Laboratory Results - last 24 hr 01/01/21 01/01/21 01/01/21 15:20 15:20 15:20 WBC 21.1 H RBC 3.89 L Hgb 10.8 L Hct 32.9 L MCV 84.6 MCH 27.8 MCHC 32.8 RDW 15.9 Plt Count 233 D MPV 11.7 Immature Gran % (Auto) 0.7 H Neut % (Auto) 79.7 H Lymph % (Auto) 9.4 L [place] % (Auto) 8.4 Eos % (Auto) 1.4 Baso % (Auto) 0.4 Lymph # (Auto) 2.0 [place] # (Auto) 1.8 H Eos # (Auto) 0.3 Baso # (Auto) 0.1 Abs Immat Gran (auto) 0.15 H Absolute Neuts (auto) 16.8 H Absolute Nucleated RBC 0.000 Nucleated RBC % (auto) 0.0 Smear Tech's Comments VERIFIED Hold Purple Top SEE NOTE PT 11.0 INR 1.0 Sodium Potassium Chloride Carbon Dioxide Anion Gap BUN Creatinine Estim Creat Clear Calc Estimated GFR POC Glucose Random Glucose Lactic Acid Calcium Magnesium Total Bilirubin Direct Bilirubin AST ALT Alkaline Phosphatase Total Protein Albumin Lipase Urine Color Urine Appearance Urine pH Ur Specific [place] Urine Protein Urine Glucose (UA) Urine Ketones Urine Blood Urine Nitrite Ur Leukocyte Esterase Coronavirus (PCR) COVID-19 ([facility]) COVID-19 Clin Com Influenza Type A (PCR) Influenza Type B (PCR) RSV RNA Qual (PCR) 01/01/21 01/01/21 01/01/21 15:20 21:45 23:00 WBC RBC Hgb Hct MCV MCH MCHC RDW Plt Count MPV Immature Gran % (Auto) Neut % (Auto) Lymph % (Auto) [place] % (Auto) Eos % (Auto) Baso % (Auto) Lymph # (Auto) [place] # (Auto) Eos # (Auto) Baso # (Auto) Abs Immat Gran (auto) Absolute Neuts (auto) Absolute Nucleated RBC Nucleated RBC % (auto) Smear Tech's Comments Hold Purple Top PT INR Sodium 139 Potassium 3.7 Chloride 98 Carbon Dioxide 32 H Anion Gap 13 BUN 17 H Creatinine 1.24 Estim Creat Clear Calc 41.4 Estimated GFR 43 POC Glucose Random Glucose 274 H Lactic Acid 1.1 Calcium 9.7 D Magnesium 1.9 Total Bilirubin 0.5 Direct Bilirubin AST 21 D ALT 23 Alkaline Phosphatase 153 H Total Protein 6.2 L Albumin 3.7 Lipase 7 L Urine Color YELLOW Urine Appearance CLEAR Urine pH 6.0 Ur Specific [place] 1.015 Urine Protein TRACE Urine Glucose (UA) 250 H Urine Ketones 5 Urine Blood NEG Urine Nitrite NEG Ur Leukocyte Esterase NEG Coronavirus (PCR) COVID-19 ([facility]) COVID-19 Clin Com Influenza Type A (PCR) Influenza Type B (PCR) RSV RNA Qual (PCR) 01/01/21 01/02/21 01/02/21 23:01 00:46 02:32 WBC RBC Hgb Hct MCV MCH MCHC RDW Plt Count MPV Immature Gran % (Auto) Neut % (Auto) Lymph % (Auto) [place] % (Auto) Eos % (Auto) Baso % (Auto) Lymph # (Auto) [place] # (Auto) Eos # (Auto) Baso # (Auto) Abs Immat Gran (auto) Absolute Neuts (auto) Absolute Nucleated RBC Nucleated RBC % (auto) Smear Tech's Comments Hold Purple Top PT INR Sodium Potassium Chloride Carbon Dioxide Anion Gap BUN Creatinine Estim Creat Clear Calc Estimated GFR POC Glucose 292 H Random Glucose Lactic Acid Calcium Magnesium Total Bilirubin Direct Bilirubin AST ALT Alkaline Phosphatase Total Protein Albumin Lipase Urine Color Urine Appearance Urine pH Ur Specific [place] Urine Protein Urine Glucose (UA) Urine Ketones Urine Blood Urine Nitrite Ur Leukocyte Esterase Coronavirus (PCR) NEGATIVE COVID-19 ([facility]) Negative COVID-19 Clin Com See Note Influenza Type A (PCR) NEGATIVE Influenza Type B (PCR) NEGATIVE RSV RNA Qual (PCR) NEGATIVE 01/02/21 01/02/21 01/02/21 07:47 07:55 07:55 WBC 15.0 H RBC 3.38 L Hgb 9.3 L Hct 28.3 L MCV 83.7 MCH 27.5 MCHC 32.9 RDW 15.6 Plt Count 213 MPV 11.7 Immature Gran % (Auto) Neut % (Auto) Lymph % (Auto) [place] % (Auto) Eos % (Auto) Baso % (Auto) Lymph # (Auto) [place] # (Auto) Eos # (Auto) Baso # (Auto) Abs Immat Gran (auto) Absolute Neuts (auto) Absolute Nucleated RBC 0.000 Nucleated RBC % (auto) 0.0 Smear Tech's Comments Hold Purple Top PT INR Sodium 135 Potassium 3.5 Chloride 95 L Carbon Dioxide 33 H Anion Gap 11 L BUN 14 Creatinine 1.11 Estim Creat Clear Calc 46.2 Estimated GFR 49 POC Glucose 343 H Random Glucose 354 H* Lactic Acid Calcium 8.5 D Magnesium Total Bilirubin 1.4 H Direct Bilirubin 0.9 H AST 888 H ALT 432 H Alkaline Phosphatase 553 H D Total Protein 5.0 L Albumin 3.0 L Lipase Urine Color Urine Appearance Urine pH Ur Specific [place] Urine Protein Urine Glucose (UA) Urine Ketones Urine Blood Urine Nitrite Ur Leukocyte Esterase Coronavirus (PCR) COVID-19 ([facility]) COVID-19 Clin Com Influenza Type A (PCR) Influenza Type B (PCR) RSV RNA Qual (PCR) 01/02/21 11:35 WBC RBC Hgb Hct MCV MCH MCHC RDW Plt Count MPV Immature Gran % (Auto) Neut % (Auto) Lymph % (Auto) [place] % (Auto) Eos % (Auto) Baso % (Auto) Lymph # (Auto) [place] # (Auto) Eos # (Auto) Baso # (Auto) Abs Immat Gran (auto) Absolute Neuts (auto) Absolute Nucleated RBC Nucleated RBC % (auto) Smear Tech's Comments Hold Purple Top PT INR Sodium Potassium Chloride Carbon Dioxide Anion Gap BUN Creatinine Estim Creat Clear Calc Estimated GFR POC Glucose 174 H Random Glucose Lactic Acid Calcium Magnesium Total Bilirubin Direct Bilirubin AST ALT Alkaline Phosphatase Total Protein Albumin Lipase Urine Color Urine Appearance Urine pH Ur Specific [place] Urine Protein Urine Glucose (UA) Urine Ketones Urine Blood Urine Nitrite Ur Leukocyte Esterase Coronavirus (PCR) COVID-19 ([facility]) COVID-19 Clin Com Influenza Type A (PCR) Influenza Type B (PCR) RSV RNA Qual (PCR) Imaging Radiologist's impression: Impressions Abdomen Ultrasound 01/01/21 20:00 IMPRESSION: Cholelithiasis. Mild mural thickening and irregularity represents interval worsening from 2019 study. These findings are nonspecific and could represent chronic changes secondary to the presence of the gallstones. Acute cholecystitis cannot be excluded given the patient's symptoms. Abdomen/Pelvis CT 01/01/21 23:59 IMPRESSION: 1. Distended, thick-walled gallbladder with adjacent stranding raising suspicion for cholecystitis. Though no densely calcified gallstones are seen on CT, gallstones were visible on yesterday's ultrasound. 2. No findings of pancreatitis or pyelonephritis. 3. Status post gastric bypass surgery. Assessment and Plan (1) Essential hypertension: Status: Acute (2) Atherosclerotic cardiovascular disease: Status: Acute (3) Preop cardiovascular exam: Status: Acute 70-year-old female with background history of diabetes and hypertension who is here with acute cholecystitis. She is Improving. She has cardiac catheterization before which showed very mild coronary disease. Overall she is intermediate risk for perioperative cardiovascular complications. Ideally she should be operated on Plavix but if Plavix needs to be stopped and can be stopped for few days before surgery. Blood pressure control is reasonable at now. Thank you for allowing me to participate in the care of your patient. Please feel free to contact me if you have any questions. Procedures Date of Service Date of Service: 01/02/21
--- NOTE | 2021-01-02 15:19 | P.CONHOSP_ITS ---
History of Present Illness Data of Consult Service Date: 01/02/21 Primary Care Provider: Pascual Darnell MD HPI Reason for consult: pre op eval, diabetes and HTN mangement 70 year old female latvian speaking accompanied by her daughter. She has history of multiple medical problem inlcuding but not limitted to CAD, HTN, Diabetes, HLD--just to name few. She is admitted to the surgery sevice with acute cholecysistitis as demonstrated on CT and US. She has been having RUQ pain for 3 to 4 days with nausea, there is no fever. WBC is high, along with LFTS. At the moment there is plan for cholecystectomy. She denies chest pain, shortness of breath or dyspnea on exertion. Review of Systems Review of Systems: Gen: no fever Resp: no sob, no cough CV: no chest, no MIRANDA, no leg edema GI:+nausea, +abdominal pain Neuro: No confusion Yes all other systems are reviewed and are negative [facility] Medical History Anxiety Atherosclerotic cardiovascular disease Cholecystitis Depression Diabetes type 1, uncontrolled Dyslipidemia Elevated liver function tests Essential hypertension Fibromyalgia Folliculitis Rona's disease History of myocardial infarction Hyperlipidemia, unspecified Hyperparathyroidism due to vitamin D deficiency Hypertension 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 Hypothyroidism Intestinal malabsorption following gastrectomy NSTEMI (non-ST elevated myocardial infarction) Obesity (BMI 30-39.9) Family History Father No problems noted. Mother No problems noted. Surgical History H/O gastric bypass History of bladder suspension procedure Hx of appendectomy Status post gastric bypass for obesity Status post laser cataract surgery of both eyes Social History Alcohol intake: never Currently Displaying Signs/Symptoms of Drug Intoxication Withdrawal: No Advance Directives: No Advance Directives Information Provided: Yes Do you have thoughts of harming others: None Do you have a plan to hurt others: No Plan service: No Current occupational status: disabled Meds Allergies Allergy/AdvReac Type Severity Reaction Status Date / Time lorazepam [LORAZEPAM] Allergy Severe DELIRIUM Verified 01/02/21 08:23 celecoxib [From Celebrex] Allergy Intermediate ITCHING Verified 01/02/21 08:23 tramadol [TRAMADOL] Allergy Intermediate ITCHING Verified 01/02/21 08:23 zolpidem [Ambien] Allergy Unknown unknown Verified 01/02/21 08:23 Active Medications: Current Medications Generic Name Dose Route Start Last Admin Trade Name Freq PRN Reason Stop Dose Admin Amlodipine Besylate 10 mg 01/03/21 09:00 Amlodipine Besylate 10 Mg Tablet PO DAILY [facility] Protocol Aripiprazole 20 mg 01/02/21 21:00 Aripiprazole 20 Mg Tablet PO BEDTIME [facility] Atorvastatin Calcium 80 mg 01/03/21 09:00 Atorvastatin Calcium 80 Mg Tablet PO DAILY [facility] Carvedilol 6.25 mg 01/02/21 21:00 Carvedilol 6.25 Mg Tablet PO BID [facility] Protocol Clonazepam 0.5 mg 01/02/21 12:19 Clonazepam 0.5 Mg Tablet PO Q8H PRN anxiety Sodium Chloride 1,000 mls @ 80 mls/hr 01/02/21 01:15 01/02/21 13:53 Ns IVCONT Not Given .[id number] [facility] Piperacillin Sod/Tazobactam 50 mls @ 100 mls/hr 01/02/21 10:00 01/02/21 11:09 Sod 3.375 gm/ Sodium Chloride IV Infused Q6H [facility] Infusion Insulin Human Lispro 0 unit 01/02/21 11:30 01/02/21 12:38 Insulin Lispro 100 Unit/Ml 3 Ml Vial SUBCUT Not Given QIDACHS [facility] Protocol Levothyroxine Sodium 88 mcg 01/03/21 06:30 Levothyroxine Sodium 88 Mcg Tablet PO DAILY@0630 [facility] Morphine Sulfate 3 mg 01/02/21 01:11 01/02/21 15:03 Morphine Sulfate 4 Mg/Ml Cartridge IVPUSH 3 mg Q3H PRN Administration Pain, Severe (Pain Scale 7-10) Protocol Omeprazole 20 mg 01/03/21 06:30 Omeprazole 20 Mg Capsule.Dr PO DAILY@0630 [facility] Ondansetron HCl 4 mg 01/02/21 01:11 01/02/21 02:39 Ondansetron Hcl 4 Mg/2 Ml Vial IVPUSH 4 mg Q8H PRN Administration nausea Pharmacy Consult 1 each 01/02/21 08:18 Consult Rx Perform Med Rec MISCELLANE ONCE PRN Consult order Prazosin HCl 4 mg 01/02/21 21:00 Prazosin Hcl 1 Mg Capsule PO BEDTIME [facility] Protocol Sodium Chloride 3 ml 01/02/21 08:00 01/02/21 15:04 0.9 % Sodium Chloride Flush 3 Ml Syringe IVFLUSH Not Given QSHIFT [facility] Venlafaxine HCl 150 mg 01/03/21 09:00 Venlafaxine Hcl Er 150 Mg Cap.Er.24h PO DAILY [facility] Vitamin D 50 mcg 01/03/21 09:00 Cholecalciferol (Vitamin D3) 25 Mcg Tablet PO DAILY [facility] Home Medications Medication Instructions Recorded Confirmed Last Taken Type venlafaxine 150 mg 150 mg PO DAILY cap 01/28/20 01/02/21 Unknown History capsule,extended release 24 hr (Effexor XR) aripiprazole 20 mg tablet 20 mg PO BEDTIME 02/17/20 01/02/21 Unknown History blood sugar diagnostic #10 ea 02/17/20 01/02/21 Unknown History gabapentin 100 mg capsule 100 mg PO BID 02/17/20 01/02/21 Unknown History hydroxyzine HCl 10 mg tablet 10 mg PO DAILY tab 02/22/20 01/02/21 Unknown History prazosin 2 mg capsule 4 mg PO BEDTIME cap 05/12/20 01/02/21 Unknown History calcium citrate 200 mg (950 mg) 400 mg PO BID 08/28/20 01/02/21 Unknown History tablet diclofenac sodium 75 mg 75 mg PO BID 08/28/20 01/02/21 Unknown History tablet,delayed release esomeprazole magnesium 40 mg 40 mg PO DAILY 08/28/20 01/02/21 Unknown History capsule,delayed release clonazepam 0.5 mg tablet 1 tab PO Q8H PRN 01/02/21 01/02/21 Unknown History insulin aspart 2 - 15 unit SUBCUT QID 01/02/21 01/02/21 Unknown History (niacinamide)(U-100) 100 unit/mL(3 mL) subcutaneous pen (Fiasp FlexTouch U-100 Insulin) sucralfate 1 gram tablet 1 tab PO BID 01/02/21 01/02/21 Unknown History Physical Exam Vital Signs and Narrative: Vital Signs: Last Vital Signs Temp 97.7 F 01/02/21 08:00 Pulse 69 01/02/21 12:00 Resp 20 01/02/21 12:00 BP 137/47 L 01/02/21 12:00 Pulse Ox 96 01/02/21 12:00 Body Mass Index 40.4 Constitutional Awake and Alert, No apparent distress HEENT--anicteric, n Neck Supple, No lymphadenopathy Cardiovascular RRR, No M/R/G, S1 S2, No S3 S4, No pedal edema Respiratory Lungs clear, No respiratory distress Gastrointestinal RUQ tenderness, Non-distended Skin No rash heme/onc--no lymphadenopathy Neurological Alert & oriented x3 Psychological Appropriate affect Results Labs CBC and Chem 7: 01/02/21 07:55 01/02/21 07:55 Labs: Laboratory Results - last 24 hr 01/01/21 01/01/21 01/01/21 15:20 15:20 15:20 MCV 84.6 MCH 27.8 MCHC 32.8 RDW 15.9 Plt Count 233 D MPV 11.7 Immature Gran % (Auto) 0.7 H Neut % (Auto) 79.7 H Lymph % (Auto) 9.4 L [place] % (Auto) 8.4 Eos % (Auto) 1.4 Baso % (Auto) 0.4 Lymph # (Auto) 2.0 [place] # (Auto) 1.8 H Eos # (Auto) 0.3 Baso # (Auto) 0.1 Abs Immat Gran (auto) 0.15 H Absolute Neuts (auto) 16.8 H Absolute Nucleated RBC 0.000 Nucleated RBC % (auto) 0.0 Smear Tech's Comments VERIFIED Hold Purple Top SEE NOTE PT 11.0 INR 1.0 Anion Gap Estim Creat Clear Calc Estimated GFR POC Glucose Random Glucose Lactic Acid Calcium Magnesium Total Bilirubin Direct Bilirubin AST ALT Alkaline Phosphatase Total Protein Albumin Lipase Urine Color Urine Appearance Urine pH Ur Specific [place] Urine Protein Urine Glucose (UA) Urine Ketones Urine Blood Urine Nitrite Ur Leukocyte Esterase Coronavirus (PCR) COVID-19 ([facility]) COVID-19 Clin Com Influenza Type A (PCR) Influenza Type B (PCR) RSV RNA Qual (PCR) 01/01/21 01/01/21 01/01/21 15:20 21:45 23:00 MCV MCH MCHC RDW Plt Count MPV Immature Gran % (Auto) Neut % (Auto) Lymph % (Auto) [place] % (Auto) Eos % (Auto) Baso % (Auto) Lymph # (Auto) [place] # (Auto) Eos # (Auto) Baso # (Auto) Abs Immat Gran (auto) Absolute Neuts (auto) Absolute Nucleated RBC Nucleated RBC % (auto) Smear Tech's Comments Hold Purple Top PT INR Anion Gap 13 Estim Creat Clear Calc 41.4 Estimated GFR 43 POC Glucose Random Glucose 274 H Lactic Acid 1.1 Calcium 9.7 D Magnesium 1.9 Total Bilirubin 0.5 Direct Bilirubin AST 21 D ALT 23 Alkaline Phosphatase 153 H Total Protein 6.2 L Albumin 3.7 Lipase 7 L Urine Color YELLOW Urine Appearance CLEAR Urine pH 6.0 Ur Specific [place] 1.015 Urine Protein TRACE Urine Glucose (UA) 250 H Urine Ketones 5 Urine Blood NEG Urine Nitrite NEG Ur Leukocyte Esterase NEG Coronavirus (PCR) COVID-19 ([facility]) COVID-19 Clin Com Influenza Type A (PCR) Influenza Type B (PCR) RSV RNA Qual (PCR) 01/01/21 01/02/21 01/02/21 23:01 00:46 02:32 MCV MCH MCHC RDW Plt Count MPV Immature Gran % (Auto) Neut % (Auto) Lymph % (Auto) [place] % (Auto) Eos % (Auto) Baso % (Auto) Lymph # (Auto) [place] # (Auto) Eos # (Auto) Baso # (Auto) Abs Immat Gran (auto) Absolute Neuts (auto) Absolute Nucleated RBC Nucleated RBC % (auto) Smear Tech's Comments Hold Purple Top PT INR Anion Gap Estim Creat Clear Calc Estimated GFR POC Glucose 292 H Random Glucose Lactic Acid Calcium Magnesium Total Bilirubin Direct Bilirubin AST ALT Alkaline Phosphatase Total Protein Albumin Lipase Urine Color Urine Appearance Urine pH Ur Specific [place] Urine Protein Urine Glucose (UA) Urine Ketones Urine Blood Urine Nitrite Ur Leukocyte Esterase Coronavirus (PCR) NEGATIVE COVID-19 ([facility]) Negative COVID-19 Clin Com See Note Influenza Type A (PCR) NEGATIVE Influenza Type B (PCR) NEGATIVE RSV RNA Qual (PCR) NEGATIVE 01/02/21 01/02/21 01/02/21 07:47 07:55 07:55 MCV 83.7 MCH 27.5 MCHC 32.9 RDW 15.6 Plt Count 213 MPV 11.7 Immature Gran % (Auto) Neut % (Auto) Lymph % (Auto) [place] % (Auto) Eos % (Auto) Baso % (Auto) Lymph # (Auto) [place] # (Auto) Eos # (Auto) Baso # (Auto) Abs Immat Gran (auto) Absolute Neuts (auto) Absolute Nucleated RBC 0.000 Nucleated RBC % (auto) 0.0 Smear Tech's Comments Hold Purple Top PT INR Anion Gap 11 L Estim Creat Clear Calc 46.2 Estimated GFR 49 POC Glucose 343 H Random Glucose 354 H* Lactic Acid Calcium 8.5 D Magnesium Total Bilirubin 1.4 H Direct Bilirubin 0.9 H AST 888 H ALT 432 H Alkaline Phosphatase 553 H D Total Protein 5.0 L Albumin 3.0 L Lipase Urine Color Urine Appearance Urine pH Ur Specific [place] Urine Protein Urine Glucose (UA) Urine Ketones Urine Blood Urine Nitrite Ur Leukocyte Esterase Coronavirus (PCR) COVID-19 ([facility]) COVID-19 Clin Com Influenza Type A (PCR) Influenza Type B (PCR) RSV RNA Qual (PCR) 01/02/21 11:35 MCV MCH MCHC RDW Plt Count MPV Immature Gran % (Auto) Neut % (Auto) Lymph % (Auto) [place] % (Auto) Eos % (Auto) Baso % (Auto) Lymph # (Auto) [place] # (Auto) Eos # (Auto) Baso # (Auto) Abs Immat Gran (auto) Absolute Neuts (auto) Absolute Nucleated RBC Nucleated RBC % (auto) Smear Tech's Comments Hold Purple Top PT INR Anion Gap Estim Creat Clear Calc Estimated GFR POC Glucose 174 H Random Glucose Lactic Acid Calcium Magnesium Total Bilirubin Direct Bilirubin AST ALT Alkaline Phosphatase Total Protein Albumin Lipase Urine Color Urine Appearance Urine pH Ur Specific [place] Urine Protein Urine Glucose (UA) Urine Ketones Urine Blood Urine Nitrite Ur Leukocyte Esterase Coronavirus (PCR) COVID-19 ([facility]) COVID-19 Clin Com Influenza Type A (PCR) Influenza Type B (PCR) RSV RNA Qual (PCR) Imaging Radiologist's Impressions: Impressions Abdomen Ultrasound 01/01/21 20:00 IMPRESSION: Cholelithiasis. Mild mural thickening and irregularity represents interval worsening from 2019 study. These findings are nonspecific and could represent chronic changes secondary to the presence of the gallstones. Acute cholecystitis cannot be excluded given the patient's symptoms. Abdomen/Pelvis CT 01/01/21 23:59 IMPRESSION: 1. Distended, thick-walled gallbladder with adjacent stranding raising suspicion for cholecystitis. Though no densely calcified gallstones are seen on CT, gallstones were visible on yesterday's ultrasound. 2. No findings of pancreatitis or pyelonephritis. 3. Status post gastric bypass surgery. 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 Pre-eval to be completed by cardiology 2/Diabetes-uncontrolled -SSI, if persistently hgih consider Lantus but caution while NPO 3/ HTN--continue Coreg, Norvasc 4/ Hypothyroidism--Levothyroxine 5/ HLD--no statin d/t high LFTS 6/Cholecystitis--Zosyn, surgery to follow
--- NOTE | 2021-01-02 15:34 | PC.NURSE ---
Called to the front desk specialist by nurse on floor who informed me that the son of this patient called and reported the TRUSTEE OF [employer]STATE that was visiting currently in room 387 was covid positive. I responded to room 387 and patient was in the bathroom. I spoke with the TRUSTEE OF ESTATE who was wearing a mask and sitting at the table by the window. The TRUSTEE OF ESTATE stated she had tested positive for covid. It was explained that we can not allow a visitor who is covid positive to visit our inpatients for their safety. She agreed to leave and was walked to the front door and left immediately. An senior technical architect was utilized to explain the situation to the patient and patient was given the opportunity to ask further questions. No further concerns voiced. Primary nurse aware. Will continue to monitor.
[2021-01-02 16:23] LABS: Glucose, Whole Blood 181 mg/dL (60-115)
--- NOTE | 2021-01-02 16:32 | PM.EVENT ---
Event Note Date of Service: 01/02/21 Event Note: seen on afternoon rounds says she feesl a little better abd soft, no guarding or rebound stable VS WBC lower, LFTS trending up repeat LFTs jaime felicitas son - continue IV abx for now cardiology, Hospitalist following for multiple medical problems possible lap olman if with worsening, depending on overall surgical risks
[2021-01-02 20:11] LABS: Glucose, Whole Blood 216 mg/dL (60-115)
[2021-01-02] MEDS: ARIPiprazole 20 MG TABLET PO (21:38)
[2021-01-02] MEDS: Prazosin HCL 1 MG CAPSULE 4 MG PO (21:38)
[2021-01-02] MEDS: carvediloL 6.25 MG TABLET PO (21:41)
[2021-01-03] VITALS (8 sets, daily range): BP systolic 130–152; BP diastolic 59–65; PULSE 77–87; RESP 16–18; TEMP 36.2–36.9; O2SAT 90–99
--- NOTE | 2021-01-03 | ECG_ITS ---
Test Reason : preop Blood Pressure : / mmHG Vent. Rate : 088 BPM Atrial Rate : 340 BPM P-R Int : 000 ms QRS Dur : 094 ms QT Int : 300 ms P-R-T Axes : 056 059 -13 degrees QTc Int : 363 ms Normal sinus rhythm ST & T wave abnormality, consider anterior ischemia Abnormal ECG When compared with ECG of 16-MAR-2018 13:35, Vent. rate has increased BY 29 BPM Nonspecific T wave abnormality now evident in Inferior leads T wave inversion more evident in Anterior leads QT has shortened Referred By: Navdeep Bonds Electronically Signed By:FAITH NEGRO
[2021-01-03] MEDS: Piperacillin Sodium/Tazobactam 3.375 GM in 0.9 % Sodium Chloride 50 ML IV ×4 (04:06→21:22)
[2021-01-03] MEDS: Morphine Sulfate 4 MG/ML CARTRIDGE 3 MG IVPUSH ×4 (04:10→18:12)
[2021-01-03 05:49] LABS: Basophils Absolute Auto 0.1 X10*3/uL (0.0-0.2); Basophils Percent Auto 0.5 % (0-2); Eosinophils Absolute Auto 0.3 X10*3/uL (0.0-0.4); Hematocrit 25.4 % (37-47); Hemoglobin 8.2 g/dl (12.0-16.0); Imm Gran Pct Auto 0.6 % (0.0-0.4); Lymphocytes Absolute Auto 1.7 X10*3/uL (1.2-4.9); Lymphocytes Percent Auto 11.2 % (20-40); MANUAL DIFF FLAG SCAN; Mean Corpuscular HGB Conc 32.3 g/dl (31.0-35.0); Mean Corpuscular Hemoglobin 27.2 pg (27.0-33.0); Mean Corpuscular Volume 84.1 fL (80-98); Mean Platelet Volume 11.5 fL (9.4-12.3); Monocytes Absolute Auto 1.5 X10*3/uL (0.1-1.2); Monocytes Percent Auto 9.8 % (2-11); Neutrophils Absolute Auto 11.8 X10*3/uL (2.0-8.3); Neutrophils Percent Auto 75.9 % (45-73); Platelet Count 206 X10*3/uL (160-400); Red Blood Count 3.02 X10*6/uL (4.20-5.50); Red Cell Distribution Width 15.5 % (11.0-16.0); SCAN SMEAR FLAG 1; White Blood Count 15.6 X10*3/uL (4.8-10.8)
[2021-01-03] MEDS: Levothyroxine Sodium 88 MCG TABLET PO (06:01)
[2021-01-03] MEDS: Omeprazole 20 MG CAPSULE.DR PO (06:01)
[2021-01-03 06:11] LABS: SLIDE REVIEW VERIFIED
[2021-01-03 06:19] LABS: Alanine Aminotransferase 228 U/L (0-31); Albumin Level 2.6 g/dL (3.5-5.0); Alkaline Phosphatase 418 U/L (39-117); Aspartate Amino Transferase 159 U/L (5-31); Bilirubin Direct 0.5 mg/dL (0.0-0.5); Bilirubin Total 0.9 mg/dL (0.0-1.0); Total Protein 4.4 g/dL (6.5-8.0)
[2021-01-03 07:55] LABS: Glucose, Whole Blood 192 mg/dL (60-115)
[2021-01-03] MEDS: Cholecalciferol (Vitamin D3) 25 MCG TABLET 50 MCG PO (08:22)
[2021-01-03] MEDS: carvediloL 6.25 MG TABLET PO ×2 (08:22→21:22)
[2021-01-03] MEDS: Insulin Lispro 100 UNIT/ML 3 ML VIAL SUBCUT ×3 (08:22→21:24)
[2021-01-03] MEDS: Venlafaxine HCl ER 150 MG CAP.ER.24H PO (08:22)
[2021-01-03] MEDS: 0.9 % Sodium Chloride Flush 3 ML SYRINGE IVFLUSH ×2 (08:22→16:11)
[2021-01-03] MEDS: amLODIPine Besylate 10 MG TABLET PO (08:23)
--- NOTE | 2021-01-03 11:45 | PM.PNGS ---
Subjective Subjective Date of Service: 01/04/21 Interval history: Says she still has pain on the right upper quadrant Says she now wants to proceed with surgery because of her persistent pain No events reported Physical Exam Vital Signs: Vital Signs: Last Vital Signs Temp 97.3 F 01/03/21 08:00 Pulse 85 01/03/21 08:00 Resp 18 01/03/21 08:00 BP 141/59 H 01/03/21 08:00 Pulse Ox 98 01/03/21 08:00 Body Mass Index 40.4 Chemistry 01/01/21 01/02/21 15:20 07:55 Sodium 139 135 Potassium 3.7 3.5 Carbon Dioxide 32 H 33 H BUN 17 H 14 Creatinine 1.24 1.11 Calcium 9.7 D 8.5 D Hematology 01/01/21 01/02/21 01/03/21 15:20 07:55 05:14 WBC 21.1 H 15.0 H 15.6 H Hgb 10.8 L 9.3 L 8.2 L Plt Count 233 D 213 206 Urinalysis 01/01/21 23:00 Urine Color YELLOW Urine Appearance CLEAR Urine pH 6.0 Ur Specific [place] y 1.015 Urine Protein TRACE Urine Glucose (UA) 250 H Urine Ketones 5 Urine Blood NEG Urine Nitrite NEG Ur Leukocyte Yarelis ase NEG Const: Other: Chemistry 01/01/21 01/02/21 15:20 07:55 Sodium 139 135 Potassium 3.7 3.5 Carbon Dioxide 32 H 33 H BUN 17 H 14 Creatinine 1.24 1.11 Calcium 9.7 D 8.5 D Hematology 01/01/21 01/02/21 01/03/21 15:20 07:55 05:14 WBC 21.1 H 15.0 H 15.6 H Hgb 10.8 L 9.3 L 8.2 L Plt Count 233 D 213 206 Urinalysis 01/01/21 23:00 Urine Color YELLOW Urine Appearance CLEAR Urine pH 6.0 Ur Specific Gravit y 1.015 Urine Protein TRACE Urine Glucose (UA) 250 H Urine Ketones 5 Urine Blood NEG Urine Nitrite NEG Ur Leukocyte Yarelis ase NEG General: comfortable and no acute distress Eyes: Sclerae: sclerae normal Resp: Effort & Inspection: normal respiratory effort Cardio: Rate: regular rate GI: Other: Tender on the right upper quadrant, no rebound or guarding Palpation (GI): Soft to palpation Procedures Date of Service Date of Service: 01/03/21 Progress Note: A&P Assessment and plan (1) Cholecystitis: Status: Acute Assessment and Plan: She continues to have pain and says she wants to proceed with cholecystectomy I have requested curing machine operator to see her she has been deemed to be at intermediate risk WBC has plateaued at 15 LFTs improved since yesterday I reviewed with her the technique of laparoscopic cholecystectomy and discussed risks including but not limited to bleeding, infections, injury to the bowel, liver, bile duct, retained stones, bile leak, conversion to open, perioperative CA, as well as benefits and alternatives I have discussed this with her son Guanaco The patient has been on Plavix -held since admission so we will proceed with surgery tomorrow Fall Risk Details Current Medications: Current Medications Generic Name Dose Route Start Last Admin Trade Name Freq PRN Reason Stop Dose Admin Amlodipine Besylate 10 mg 01/03/21 09:00 01/03/21 08:23 Amlodipine Besylate 10 Mg Tablet PO 10 mg DAILY [facility] Administration Protocol Aripiprazole 20 mg 01/02/21 21:00 01/02/21 21:38 Aripiprazole 20 Mg Tablet PO 20 mg BEDTIME [facility] Administration Carvedilol 6.25 mg 01/02/21 21:00 01/03/21 08:22 Carvedilol 6.25 Mg Tablet PO 6.25 mg BID [facility] Administration Protocol Clonazepam 0.5 mg 01/02/21 12:19 Clonazepam 0.5 Mg Tablet PO Q8H PRN anxiety Sodium Chloride 1,000 mls @ 80 mls/hr 01/02/21 01:15 01/03/21 10:31 Ns IVCONT 80 mls/hr .[id number] [facility] Infusion Piperacillin Sod/Tazobactam 50 mls @ 100 mls/hr 01/02/21 10:00 01/03/21 11:33 Sod 3.375 gm/ Sodium Chloride IV Infused Q6H [facility] Infusion Cefotetan Disodium 2 gm/ 50 mls @ 100 mls/hr 01/04/21 11:23 Sodium Chloride IV 01/04/21 11:52 PREOP ONE Insulin Human Lispro 0 unit 01/02/21 11:30 01/03/21 08:22 Insulin Lispro 100 Unit/Ml 3 Ml Vial SUBCUT 2 unit QIDACHS [facility] Administration Protocol Levothyroxine Sodium 88 mcg 01/03/21 06:30 01/03/21 06:01 Levothyroxine Sodium 88 Mcg Tablet PO 88 mcg DAILY@0630 [facility] Administration Morphine Sulfate 3 mg 01/02/21 01:11 01/03/21 08:25 Morphine Sulfate 4 Mg/Ml Cartridge IVPUSH 3 mg Q3H PRN Administration Pain, Severe (Pain Scale 7-10) Protocol Omeprazole 20 mg 01/03/21 06:30 01/03/21 06:01 Omeprazole 20 Mg Capsule.Dr PO 20 mg DAILY@0630 [facility] Administration Ondansetron HCl 4 mg 01/02/21 01:11 01/02/21 02:39 Ondansetron Hcl 4 Mg/2 Ml Vial IVPUSH 4 mg Q8H PRN Administration nausea Pharmacy Consult 1 each 01/02/21 08:18 Consult Rx Perform Med Rec MISCELLANE ONCE PRN Consult order Prazosin HCl 4 mg 01/02/21 21:00 01/02/21 21:38 Prazosin Hcl 1 Mg Capsule PO 4 mg BEDTIME [facility] Administration Protocol Sodium Chloride 3 ml 01/02/21 08:00 01/03/21 08:22 0.9 % Sodium Chloride Flush 3 Ml Syringe IVFLUSH 3 ml QSHIFT [facility] Administration Venlafaxine HCl 150 mg 01/03/21 09:00 01/03/21 08:22 Venlafaxine Hcl Er 150 Mg Cap.Er.24h PO 150 mg DAILY [facility] Administration Vitamin D 50 mcg 01/03/21 09:00 01/03/21 08:22 Cholecalciferol (Vitamin D3) 25 Mcg Tablet PO 50 mcg DAILY [facility] Administration Time Spent With Patient Time: Total time spent is greater than 50% in coordination of care (as documented) at patient's floor/unit and/or counseling patient: Time with patient: 15 - 24 minutes Quality Stroke Does the patient have a stroke diagnosis?: No VTE Prior VTE?: No VTE Risk Level:: Medical - moderate - high VTE Device Contraindication: N/A - Device Ordered VTE Drug Contraindication: N/A - Med Ordered
[2021-01-03 11:49] LABS: Glucose, Whole Blood 164 mg/dL (60-115)
--- NOTE | 2021-01-03 12:10 | HO.PM.IMPN ---
Subjective Subjective Date of Service: 01/03/21 Interval History: F/u on cholecystitis, still c/o significant RUQ pain Review of Systems RUQ pain, no fever no ele pain no sob Physical Exam Vital Signs: Vital Signs: Last Vital Signs Temp 97.3 F 01/03/21 08:00 Pulse 85 01/03/21 08:00 Resp 18 01/03/21 08:00 BP 141/59 H 01/03/21 08:00 Pulse Ox 98 01/03/21 08:00 Body Mass Index 40.4 General: AO X 3, no acute distress Resp: CTA bilateral CVS: S1,S2,RRR GI: +BS, RUQ tenderness, no distention Skin: No rash Neuro: motor grossly intact Psych: appropriate affect Objective Data Active Medications Amlodipine Besylate (Amlodipine Besylate 10 Mg Tablet) 10 mg PO DAILY [facility]; Protocol Last Admin: 01/03/21 08:23 Dose: 10 mg Documented by: LYNNE Aripiprazole (Aripiprazole 20 Mg Tablet) 20 mg PO BEDTIME SARAH Last Admin: 01/02/21 21:38 Dose: 20 mg Documented by: FANY Carvedilol (Carvedilol 6.25 Mg Tablet) 6.25 mg PO BID [facility]; Protocol Last Admin: 01/03/21 08:22 Dose: 6.25 mg Documented by: LYNNE Clonazepam (Clonazepam 0.5 Mg Tablet) 0.5 mg PO Q8H PRN PRN Reason: anxiety Sodium Chloride (Ns) 1,000 mls @ 80 mls/hr IVCONT .[id number] [facility] Last Infusion: 01/03/21 10:31 Dose: 80 mls/hr Documented by: LYNNE Piperacillin Sod/Tazobactam (Sod 3.375 gm/ Sodium Chloride) 50 mls @ 100 mls/hr IV Q6H [facility] Last Infusion: 01/03/21 11:33 Dose: 0 mls/hr Documented by: LYNNE Cefotetan Disodium 2 gm/ (Sodium Chloride) 50 mls @ 100 mls/hr IV PREOP ONE Stop: 01/04/21 11:52 Insulin Human Lispro (Insulin Lispro 100 Unit/Ml 3 Ml Vial) 0 unit SUBCUT QIDACHS [facility]; Protocol Last Admin: 01/03/21 12:00 Dose: Not Given Documented by: LYNNE Non-Admin Reason: No Insulin Coverage Levothyroxine Sodium (Levothyroxine Sodium 88 Mcg Tablet) 88 mcg PO DAILY@30 [facility] Last Admin: 01/03/21 06:01 Dose: 88 mcg Documented by: FANY Morphine Sulfate (Morphine Sulfate 4 Mg/Ml Cartridge) 3 mg IVPUSH Q3H PRN; Protocol PRN Reason: Pain, Severe (Pain Scale 7-10) Last Admin: 01/03/21 08:25 Dose: 3 mg Documented by: LYNNE Omeprazole (Omeprazole 20 Mg Capsule.) 20 mg PO DAILY@629 [facility] Last Admin: 01/03/21 06:01 Dose: 20 mg Documented by: FANY Ondansetron HCl (Ondansetron Hcl 4 Mg/2 Ml Vial) 4 mg IVPUSH Q8H PRN PRN Reason: nausea Last Admin: 01/02/21 02:39 Dose: 4 mg Documented by: ROSIE Pharmacy Consult (Consult Rx Perform Med Rec) 1 each MISCELLANE ONCE PRN PRN Reason: Consult order Prazosin HCl (Prazosin Hcl 1 Mg Capsule) 4 mg PO BEDTIME [facility]; Protocol Last Admin: 01/02/21 21:38 Dose: 4 mg Documented by: FANY Sodium Chloride (0.9 % Sodium Chloride Flush 3 Ml Syringe) 3 ml IVFLUSH QSHIFT [facility] Last Admin: 01/03/21 08:22 Dose: 3 ml Documented by: LYNNE Venlafaxine HCl (Venlafaxine Hcl Er 150 Mg Cap.Er.24h) 150 mg PO DAILY [facility] Last Admin: 01/03/21 08:22 Dose: 150 mg Documented by: LYNNE Vitamin D (Cholecalciferol (Vitamin D3) 25 Mcg Tablet) 50 mcg PO DAILY [facility] Last Admin: 01/03/21 08:22 Dose: 50 mcg Documented by: LYNNE Labs CBC & Chem 7: 01/03/21 05:14 01/02/21 07:55 Labs: Laboratory Results - last 24 hr 01/02/21 01/02/21 01/03/21 16:19 20:08 05:14 MCV 84.1 MCH 27.2 MCHC 32.3 RDW 15.5 Plt Count 206 MPV 11.5 Immature Gran % (Auto) 0.6 H Neut % (Auto) 75.9 H Lymph % (Auto) 11.2 L [place] % (Auto) 9.8 Eos % (Auto) 2.0 Baso % (Auto) 0.5 Lymph # (Auto) 1.7 [place] # (Auto) 1.5 H Eos # (Auto) 0.3 Baso # (Auto) 0.1 Abs Immat Gran (auto) 0.10 H Absolute Neuts (auto) 11.8 H Absolute Nucleated RBC 0.000 Nucleated RBC % (auto) 0.0 Smear Tech's Comments VERIFIED POC Glucose 181 H 216 H Total Bilirubin Direct Bilirubin AST ALT Alkaline Phosphatase Total Protein Albumin 01/03/21 01/03/21 01/03/21 05:14 07:39 11:28 MCV MCH MCHC RDW Plt Count MPV Immature Gran % (Auto) Neut % (Auto) Lymph % (Auto) [place] % (Auto) Eos % (Auto) Baso % (Auto) Lymph # (Auto) [place] # (Auto) Eos # (Auto) Baso # (Auto) Abs Immat Gran (auto) Absolute Neuts (auto) Absolute Nucleated RBC Nucleated RBC % (auto) Smear Tech's Comments POC Glucose 192 H 164 H Total Bilirubin 0.9 Direct Bilirubin 0.5 AST 159 H ALT 228 H Alkaline Phosphatase 418 H D Total Protein 4.4 L Albumin 2.6 L Microbiology Microbiology Results: Microbiology 01/01/21 21:45 Blood Culture - Preliminary Blood - Venous Prelim: GPC Gram Stain only 01/01/21 21:45 Blood Culture - Preliminary Blood - Venous No growth after 24 hours. Assessment and Plan (1) Diabetes: Status: Acute (2) Preop cardiovascular exam: Status: Acute (3) Cholecystitis: Status: Acute (4) Anemia: Status: Acute Assessment and Plan: 70/F with DM, HTN, HLD, hypothyroidism here with acute cholecystitits 1/Acute cholecystitis awaiting surgery. Pre-eval to be completed by cardiology, but likely moderate risk on basis of CAD, multiple comorbidity, however no further work up is indicated at this time. Obtain an ECG 2/Diabetes-uncontrolled -SSI, if persistently hgih consider Lantus but caution while NPO 3/ HTN--continue Coreg, Norvasc 4/ Hypothyroidism--Levothyroxine 5/ HLD--no statin d/t high LFTS 6/Cholecystitis--Zosyn,? surgery to follow 7/Anemia--likely of chronic disease, slightly lower, Monitor Quality Stroke Does the patient have a stroke diagnosis?: No VTE Prior VTE?: No VTE Risk Level:: Medical - moderate - high VTE Device Contraindication: N/A - Device Ordered VTE Drug Contraindication: N/A - Med Ordered
--- NOTE | 2021-01-03 16:05 | MHC.CM.PN ---
[facility] REVIEWED, PER SURGICAL THEY HAVE COSNSULTED W/CARDIOLOGY AND PLAN IS TO PROCEED W/[facility] TOMORROW 01/04/21, PLAN CONT'S TO BE HOME W/NO SERVICES, CM WILL CONT TO FOLLOW.
[2021-01-03] MEDS: 0.9 % Sodium Chloride 1,000 ML 80 ML IVCONT (16:12)
[2021-01-03 17:33] LABS: Glucose, Whole Blood 385 mg/dL (60-115)
--- NOTE | 2021-01-03 20:21 | PM.PNCARD ---
Subjective Subjective Date of Service: 01/03/21 Interval history: complaining of right upper quadrant pain. Review of Systems Review of Systems abdominal pain Physical Exam Vital Signs: Last Vital Signs Temp 98.4 F 01/03/21 16:00 Pulse 87 01/03/21 16:00 Resp 16 01/03/21 16:00 BP 133/61 01/03/21 16:00 Pulse Ox 90 L 01/03/21 18:24 Body Mass Index 40.4 ?GENERAL APPEARANCE: right upper quadrant pain. Distressed. NECK: no carotid bruit, no jugular venous distention. SKIN: no suspicious lesions, warm and dry. HEART: no murmurs, regular rate and rhythm. LUNGS: clear to auscultation bilaterally. ABDOMEN: Tender right upper quadrant.. EXTREMITIES: no edema. PERIPHERAL PULSES: equal. NEUROLOGIC: No gross deficits, AAO X 3 Results Labs and Meds Result diagrams: 01/03/21 05:14 01/02/21 07:55 Lab results: Laboratory Results - last 24 hr 01/03/21 01/03/21 01/03/21 05:14 05:14 07:39 WBC 15.6 H RBC 3.02 L Hgb 8.2 L Hct 25.4 L MCV 84.1 MCH 27.2 MCHC 32.3 RDW 15.5 Plt Count 206 MPV 11.5 Immature Gran % (Auto) 0.6 H Neut % (Auto) 75.9 H Lymph % (Auto) 11.2 L [place] % (Auto) 9.8 Eos % (Auto) 2.0 Baso % (Auto) 0.5 Lymph # (Auto) 1.7 [place] # (Auto) 1.5 H Eos # (Auto) 0.3 Baso # (Auto) 0.1 Abs Immat Gran (auto) 0.10 H Absolute Neuts (auto) 11.8 H Absolute Nucleated RBC 0.000 Nucleated RBC % (auto) 0.0 Smear Tech's Comments VERIFIED POC Glucose 192 H Total Bilirubin 0.9 Direct Bilirubin 0.5 AST 159 H ALT 228 H Alkaline Phosphatase 418 H D Total Protein 4.4 L Albumin 2.6 L 01/03/21 01/03/21 11:28 16:45 WBC RBC Hgb Hct MCV MCH MCHC RDW Plt Count MPV Immature Gran % (Auto) Neut % (Auto) Lymph % (Auto) [place] % (Auto) Eos % (Auto) Baso % (Auto) Lymph # (Auto) [place] # (Auto) Eos # (Auto) Baso # (Auto) Abs Immat Gran (auto) Absolute Neuts (auto) Absolute Nucleated RBC Nucleated RBC % (auto) Smear Tech's Comments POC Glucose 164 H 385 H* Total Bilirubin Direct Bilirubin AST ALT Alkaline Phosphatase Total Protein Albumin Progress Note: A&P Assessment and plan (1) Cholecystitis: Status: Acute (2) Atherosclerotic cardiovascular disease: Status: Acute (3) Hypertension: Status: Acute Assessment and Plan: 70-year-old female who is here with cholecystitis. No chest pain or shortness of breath. She will likely go to for tomorrow. hypoxic because of atelectasis due to inabilityto take a deep breath due to cholecystitis and right upper quadrant pain. blood pressure control is good. Signing off. Thank you for allowing me to participate in the care of your patient. Please feel free to contact me if you have any questions. Fall Risk Details Current Medications: Current Medications Generic Name Dose Route Start Last Admin Trade Name Freq PRN Reason Stop Dose Admin Amlodipine Besylate 10 mg 01/03/21 09:00 01/03/21 08:23 Amlodipine Besylate 10 Mg Tablet PO 10 mg DAILY SARAH Administration Protocol Aripiprazole 20 mg 01/02/21 21:00 01/02/21 21:38 Aripiprazole 20 Mg Tablet PO 20 mg BEDTIME SARAH Administration Carvedilol 6.25 mg 01/02/21 21:00 01/03/21 08:22 Carvedilol 6.25 Mg Tablet PO 6.25 mg BID SARAH Administration Protocol Clonazepam 0.5 mg 01/02/21 12:19 Clonazepam 0.5 Mg Tablet PO Q8H PRN anxiety Sodium Chloride 1,000 mls @ 80 mls/hr 01/02/21 01:15 01/03/21 16:12 Ns IVCONT 80 mls/hr .[id number] SARAH Administration Piperacillin Sod/Tazobactam 50 mls @ 100 mls/hr 01/02/21 10:00 01/03/21 16:57 Sod 3.375 gm/ Sodium Chloride IV Infused Q6H SARAH Infusion Cefotetan Disodium 2 gm/ 50 mls @ 100 mls/hr 01/04/21 11:23 Sodium Chloride IV 01/04/21 11:52 PREOP ONE Insulin Human Lispro 0 unit 01/02/21 11:30 01/03/21 18:08 Insulin Lispro 100 Unit/Ml 3 Ml Vial SUBCUT 10 unit QIDACHS SARAH Administration Protocol Levothyroxine Sodium 88 mcg 01/03/21 06:30 01/03/21 06:01 Levothyroxine Sodium 88 Mcg Tablet PO 88 mcg DAILY@0630 SARAH Administration Morphine Sulfate 3 mg 01/02/21 01:11 01/03/21 18:12 Morphine Sulfate 4 Mg/Ml Cartridge IVPUSH 3 mg Q3H PRN Administration Pain, Severe (Pain Scale 7-10) Protocol Omeprazole 20 mg 01/03/21 06:30 01/03/21 06:01 Omeprazole 20 Mg Capsule.Dr PO 20 mg DAILY@0630 SARAH Administration Ondansetron HCl 4 mg 01/02/21 01:11 01/02/21 02:39 Ondansetron Hcl 4 Mg/2 Ml Vial IVPUSH 4 mg Q8H PRN Administration nausea Pharmacy Consult 1 each 01/02/21 08:18 Consult Rx Perform Med Rec MISCELLANE ONCE PRN Consult order Prazosin HCl 4 mg 01/02/21 21:00 01/02/21 21:38 Prazosin Hcl 1 Mg Capsule PO 4 mg BEDTIME SARAH Administration Protocol Sodium Chloride 3 ml 01/02/21 08:00 01/03/21 16:11 0.9 % Sodium Chloride Flush 3 Ml Syringe IVFLUSH 3 ml QSHIFT SARAH Administration Venlafaxine HCl 150 mg 01/03/21 09:00 01/03/21 08:22 Venlafaxine Hcl Er 150 Mg Cap.Er.24h PO 150 mg DAILY SARAH Administration Vitamin D 50 mcg 01/03/21 09:00 01/03/21 08:22 Cholecalciferol (Vitamin D3) 25 Mcg Tablet PO 50 mcg DAILY SARAH Administration Time Spent With Patient Time: Total time spent is greater than 50% in coordination of care (as documented) at patient's floor/unit and/or counseling patient: Time with patient: 15 - 24 minutes Progress Note: Quality Stroke Does the patient have a stroke diagnosis?: No Procedures Date of Service Date of Service: 01/03/21
[2021-01-03 21:07] LABS: Glucose, Whole Blood 220 mg/dL (60-115)
[2021-01-03] MEDS: ARIPiprazole 20 MG TABLET PO (21:22)
[2021-01-04] VITALS (15 sets, daily range): BP systolic 131–169; BP diastolic 58–76; PULSE 74–96; RESP 14–20; TEMP 36–37.4; O2SAT 96–100
[2021-01-04 04:09] LABS: Glucose, Whole Blood 102 mg/dL (60-115)
[2021-01-04] MEDS: Piperacillin Sodium/Tazobactam 3.375 GM in 0.9 % Sodium Chloride 50 ML IV ×3 (04:22→22:25)
[2021-01-04] MEDS: 0.9 % Sodium Chloride 1,000 ML 80 ML IVCONT (04:23)
[2021-01-04] MEDS: Omeprazole 20 MG CAPSULE.DR PO (06:25)
[2021-01-04] MEDS: Levothyroxine Sodium 88 MCG TABLET PO (06:25)
[2021-01-04 07:59] LABS: Glucose, Whole Blood 166 mg/dL (60-115)
--- NOTE | 2021-01-04 08:33 | PC.NURSE ---
0827 called lab to draw type and screen on patient in room 387-1. made primary floor rn juan m figueroa aware.
--- NOTE | 2021-01-04 09:22 | HO.PM.IMPN ---
Subjective Subjective Date of Service: 01/04/21 Interval History: ? F/u on cholecystitis, still has signficant abdominal pain Review of Systems RUQ pain, no fever no ele pain no sob Physical Exam Vital Signs: Vital Signs: Last Vital Signs Temp 96.8 F 01/04/21 07:40 Pulse 96 01/04/21 07:40 Resp 18 01/04/21 07:40 BP 143/58 H 01/04/21 07:40 Pulse Ox 96 01/04/21 07:40 Body Mass Index 40.4 General: AO X 3, no acute distress Resp: CTA bilateral CVS: S1,S2,RRR GI: RUQ tenderness Skin: No rash Neuro: motor grossly intact Psych: appropriate affect m Objective Data Active Medications Amlodipine Besylate (Amlodipine Besylate 10 Mg Tablet) 10 mg PO DAILY [facility]; Protocol Last Admin: 01/03/21 08:23 Dose: 10 mg Documented by: LYNNE Aripiprazole (Aripiprazole 20 Mg Tablet) 20 mg PO BEDTIME SARAH Last Admin: 01/03/21 21:22 Dose: 20 mg Documented by: TEMO Carvedilol (Carvedilol 6.25 Mg Tablet) 6.25 mg PO BID [facility]; Protocol Last Admin: 01/03/21 21:22 Dose: 6.25 mg Documented by: TEMO Clonazepam (Clonazepam 0.5 Mg Tablet) 0.5 mg PO Q8H PRN PRN Reason: anxiety Sodium Chloride (Ns) 1,000 mls @ 80 mls/hr IVCONT .[id number] [facility] Last Admin: 01/04/21 04:23 Dose: 80 mls/hr Documented by: TEMO Piperacillin Sod/Tazobactam (Sod 3.375 gm/ Sodium Chloride) 50 mls @ 100 mls/hr IV Q6H [facility] Last Infusion: 01/04/21 05:15 Dose: 0 mls/hr Documented by: TEMO Cefotetan Disodium 2 gm/ (Sodium Chloride) 50 mls @ 100 mls/hr IV PREOP ONE Stop: 01/04/21 11:52 Insulin Human Lispro (Insulin Lispro 100 Unit/Ml 3 Ml Vial) 0 unit SUBCUT QIDACHS [facility]; Protocol Last Admin: 01/04/21 09:11 Dose: Not Given Documented by: TYSON Non-Admin Reason: No Insulin Coverage Levothyroxine Sodium (Levothyroxine Sodium 88 Mcg Tablet) 88 mcg PO DAILY@0630 [facility] Last Admin: 01/04/21 06:25 Dose: 88 mcg Documented by: TEMO Morphine Sulfate (Morphine Sulfate 4 Mg/Ml Cartridge) 3 mg IVPUSH Q3H PRN; Protocol PRN Reason: Pain, Severe (Pain Scale 7-10) Last Admin: 01/03/21 18:12 Dose: 3 mg Documented by: LYNNE Omeprazole (Omeprazole 20 Mg Capsule.) 20 mg PO DAILY@629 [facility] Last Admin: 01/04/21 06:25 Dose: 20 mg Documented by: TEMO Ondansetron HCl (Ondansetron Hcl 4 Mg/2 Ml Vial) 4 mg IVPUSH Q8H PRN PRN Reason: nausea Last Admin: 01/02/21 02:39 Dose: 4 mg Documented by: ROSIE Pharmacy Consult (Consult Rx Perform Med Rec) 1 each MISCELLANE ONCE PRN PRN Reason: Consult order Prazosin HCl (Prazosin Hcl 1 Mg Capsule) 4 mg PO BEDTIME [facility]; Protocol Last Admin: 01/03/21 22:02 Dose: Not Given Documented by: TEMO Non-Admin Reason: Med Not Available Sodium Chloride (0.9 % Sodium Chloride Flush 3 Ml Syringe) [facility] Last Admin: 01/04/21 06:47 Dose: Not Given Documented by: TEMO Non-Admin Reason: IV Running Venlafaxine HCl (Venlafaxine Hcl Er 150 Mg Cap.Er.24h) 150 mg PO DAILY [facility] Last Admin: 01/03/21 08:22 Dose: 150 mg Documented by: LYNNE Vitamin D (Cholecalciferol (Vitamin D3) 25 Mcg Tablet) 50 mcg PO DAILY [facility] Last Admin: 01/03/21 08:22 Dose: 50 mcg Documented by: LYNNE Labs CBC & Chem 7: 01/03/21 05:14 01/02/21 07:55 Labs: Laboratory Results - last 24 hr 01/03/21 01/03/21 01/03/21 11:28 16:45 21:02 POC Glucose 164 H 385 H* 220 H 01/04/21 01/04/21 04:02 07:38 POC Glucose 102 166 H Microbiology Microbiology Results: Microbiology 01/01/21 21:45 Blood Culture - Preliminary Blood - Venous No growth after 48 hours. Assessment and Plan (1) Diabetes: Status: Acute (2) Preop cardiovascular exam: Status: Acute (3) Cholecystitis: Status: Acute (4) Anemia: Status: Acute Assessment and Plan: 70/F with DM, HTN, HLD, hypothyroidism here with acute cholecystitits 1/Acute cholecystitis awaiting surgery. Pre-eval completed by cardiology: intermediate risk, no further testing 2/Diabetes-uncontrolled -SSI, if persistently hgih consider Lantus but caution while NPO, FBS 166 3/ HTN--continue Coreg, Norvasc 4/ Hypothyroidism--Levothyroxine 5/ HLD--no statin d/t high LFTS 6/Cholecystitis--continue Zosyn, LFTs trending down 7/Anemia--likely of chronic disease, slightly lower, Monitor Quality Stroke Does the patient have a stroke diagnosis?: No VTE Prior VTE?: No VTE Risk Level:: Medical - moderate - high VTE Device Contraindication: N/A - Device Ordered VTE Drug Contraindication: N/A - Med Ordered
--- NOTE | 2021-01-04 09:42 | P.CONAN_ITS ---
[facility] Active Problems Active Problems: All Active Problems (Updated 01/02/21 @ 18:25 by Jose cuevas MD) Preop cardiovascular exam (Acute) Diabetes (Acute) Pre-op chest exam (Acute) Cholecystitis (Acute) Elevated liver function tests (Acute) Anemia (Acute) H/O gastric bypass (Acute) Intestinal malabsorption following gastrectomy (Acute) Hyperlipidemia, unspecified (Acute) Essential hypertension (Acute) Status post gastric bypass for obesity (Acute) Atherosclerotic cardiovascular disease (Acute) NSTEMI (non-ST elevated myocardial infarction) (Acute) Anxiety (Acute) Depression (Acute) Diabetes type 1, uncontrolled (Acute) Obesity (BMI 30-39.9) (Acute) Hyperparathyroidism due to vitamin D deficiency (Acute) Dyslipidemia (Acute) 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 (Acute) Hypertension (Acute) Rona's disease (Acute) Hypothyroidism (Acute) Past Medical History Medical History Anxiety Atherosclerotic cardiovascular disease Cholecystitis Depression Diabetes type 1, uncontrolled Dyslipidemia Elevated liver function tests Essential hypertension Fibromyalgia Folliculitis Rona's disease History of myocardial infarction Hyperlipidemia, unspecified Hyperparathyroidism due to vitamin D deficiency Hypertension 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 Hypothyroidism Intestinal malabsorption following gastrectomy NSTEMI (non-ST elevated myocardial infarction) Obesity (BMI 30-39.9) Family History Family History Father No problems noted. Mother No problems noted. Surgical History Surgical History H/O gastric bypass History of bladder suspension procedure Hx of appendectomy Status post gastric bypass for obesity Status post laser cataract surgery of both eyes History of Problems with Anesthesia: No Social History Social History Alcohol intake: never Patient Tobacco Use Status: Never used Tobacco Use of substances other than those prescribed or required for medical reasons: No Currently Displaying Signs/Symptoms of Drug Intoxication Withdrawal: No Are you DNR?: No Advance Directives: No Advance Directives Information Provided: Yes Do you have thoughts of harming others: None Do you have a plan to hurt others: No Plan Recently lost weight without trying: Yes How much weight loss: 2-13 pounds Nutrition Risks: No Nutritional Risk service: No Current occupational status: disabled Meds Allergies Allergy/AdvReac Type Severity Reaction Status Date / Time lorazepam [LORAZEPAM] Allergy Severe DELIRIUM Verified 01/02/21 08:23 celecoxib [From Celebrex] Allergy Intermediate ITCHING Verified 01/02/21 08:23 tramadol [TRAMADOL] Allergy Intermediate ITCHING Verified 01/02/21 08:23 zolpidem [Ambien] Allergy Unknown unknown Verified 01/02/21 08:23 Active Medications: Current Medications Generic Name Dose Route Start Last Admin Trade Name Freq PRN Reason Stop Dose Admin Amlodipine Besylate 10 mg 01/03/21 09:00 01/03/21 08:23 Amlodipine Besylate 10 Mg Tablet PO 10 mg DAILY SARAH Administration Protocol Aripiprazole 20 mg 01/02/21 21:00 01/03/21 21:22 Aripiprazole 20 Mg Tablet PO 20 mg BEDTIME SARAH Administration Carvedilol 6.25 mg 01/02/21 21:00 01/03/21 21:22 Carvedilol 6.25 Mg Tablet PO 6.25 mg BID SARAH Administration Protocol Clonazepam 0.5 mg 01/02/21 12:19 Clonazepam 0.5 Mg Tablet PO Q8H PRN anxiety Sodium Chloride 1,000 mls @ 80 mls/hr 01/02/21 01:15 01/04/21 04:23 Ns IVCONT 80 mls/hr .[id number] SARAH Administration Piperacillin Sod/Tazobactam 50 mls @ 100 mls/hr 01/02/21 10:00 01/04/21 05:15 Sod 3.375 gm/ Sodium Chloride IV Infused Q6H SARAH Infusion Cefotetan Disodium 2 gm/ 50 mls @ 100 mls/hr 01/04/21 11:23 Sodium Chloride IV 01/04/21 11:52 PREOP ONE Insulin Human Lispro 0 unit 01/02/21 11:30 01/04/21 09:11 Insulin Lispro 100 Unit/Ml 3 Ml Vial SUBCUT Not Given QIDACHS [facility] Protocol Levothyroxine Sodium 88 mcg 01/03/21 06:30 01/04/21 06:25 Levothyroxine Sodium 88 Mcg Tablet PO 88 mcg DAILY@0630 SARAH Administration Morphine Sulfate 3 mg 01/02/21 01:11 01/03/21 18:12 Morphine Sulfate 4 Mg/Ml Cartridge IVPUSH 3 mg Q3H PRN Administration Pain, Severe (Pain Scale 7-10) Protocol Omeprazole 20 mg 01/03/21 06:30 01/04/21 06:25 Omeprazole 20 Mg Capsule.Dr PO 20 mg DAILY@0630 SARAH Administration Ondansetron HCl 4 mg 01/02/21 01:11 01/02/21 02:39 Ondansetron Hcl 4 Mg/2 Ml Vial IVPUSH 4 mg Q8H PRN Administration nausea Pharmacy Consult 1 each 01/02/21 08:18 Consult Rx Perform Med Rec MISCELLANE ONCE PRN Consult order Prazosin HCl 4 mg 01/02/21 21:00 01/03/21 22:02 Prazosin Hcl 1 Mg Capsule PO Not Given BEDTIME [facility] Protocol Sodium Chloride 3 ml 01/02/21 08:00 01/04/21 06:47 0.9 % Sodium Chloride Flush 3 Ml Syringe IVFLUSH Not Given QSHIFT [facility] Venlafaxine HCl 150 mg 01/03/21 09:00 01/03/21 08:22 Venlafaxine Hcl Er 150 Mg Cap.Er.24h PO 150 mg DAILY SARAH Administration Vitamin D 50 mcg 01/03/21 09:00 01/03/21 08:22 Cholecalciferol (Vitamin D3) 25 Mcg Tablet PO 50 mcg DAILY SARAH Administration Home Medications Medication Instructions Recorded Confirmed Last Taken Type venlafaxine 150 mg 150 mg PO DAILY cap 01/28/20 01/02/21 Unknown History capsule,extended release 24 hr (Effexor XR) aripiprazole 20 mg tablet 20 mg PO BEDTIME 02/17/20 01/02/21 Unknown History blood sugar diagnostic #10 ea 02/17/20 01/02/21 Unknown History gabapentin 100 mg capsule 100 mg PO BID 02/17/20 01/02/21 Unknown History hydroxyzine HCl 10 mg tablet 10 mg PO DAILY tab 02/22/20 01/02/21 Unknown History prazosin 2 mg capsule 4 mg PO BEDTIME cap 05/12/20 01/02/21 Unknown History calcium citrate 200 mg (950 mg) 400 mg PO BID 08/28/20 01/02/21 Unknown History tablet diclofenac sodium 75 mg 75 mg PO BID 08/28/20 01/02/21 Unknown History tablet,delayed release esomeprazole magnesium 40 mg 40 mg PO DAILY 08/28/20 01/02/21 Unknown History capsule,delayed release clonazepam 0.5 mg tablet 1 tab PO Q8H PRN 01/02/21 01/02/21 Unknown History insulin aspart 2 - 15 unit SUBCUT QID 01/02/21 01/02/21 Unknown History (niacinamide)(U-100) 100 unit/mL(3 mL) subcutaneous pen (Fiasp FlexTouch U-100 Insulin) sucralfate 1 gram tablet 1 tab PO BID 01/02/21 01/02/21 Unknown History Exam Exam Date and Time: January 04, 2021 0942 Height,Weight and Vital Signs: Height 4 ft 11 in Weight 90.718 kg Last Vital Signs Temp 99.4 F 01/04/21 09:32 Pulse 93 01/04/21 09:32 Resp 16 01/04/21 09:32 BP 151/63 H 01/04/21 09:32 Pulse Ox 96 01/04/21 09:32 Pertinent Lab Results Pertinent Lab Results: Laboratory Tests 01/01/21 01/01/21 01/01/21 15:20 15:20 15:20 WBC 21.1 H RBC 3.89 L Hgb 10.8 L Hct 32.9 L MCV 84.6 MCH 27.8 MCHC 32.8 RDW 15.9 Plt Count 233 D MPV 11.7 Immature Gran % (Auto) 0.7 H Neut % (Auto) 79.7 H Lymph % (Auto) 9.4 L Preston % (Auto) 8.4 Eos % (Auto) 1.4 Baso % (Auto) 0.4 Lymph # (Auto) 2.0 Preston # (Auto) 1.8 H Eos # (Auto) 0.3 Baso # (Auto) 0.1 Abs Immat Gran (auto) 0.15 H Absolute Neuts (auto) 16.8 H Absolute Nucleated RBC 0.000 Nucleated RBC % (auto) 0.0 Smear Tech's Comments VERIFIED Hold Purple Top SEE NOTE PT 11.0 INR 1.0 Sodium Potassium Chloride Carbon Dioxide Anion Gap BUN Creatinine Estim Creat Clear Calc Estimated GFR POC Glucose Random Glucose Lactic Acid Calcium Magnesium Total Bilirubin Direct Bilirubin AST ALT Alkaline Phosphatase Total Protein Albumin Lipase Urine Color Urine Appearance Urine pH Ur Specific Nelson Urine Protein Urine Glucose (UA) Urine Ketones Urine Blood Urine Nitrite Ur Leukocyte Esterase Coronavirus (PCR) COVID-19 ([facility]) COVID-19 Clin Com Influenza Type A (PCR) Influenza Type B (PCR) RSV RNA Qual (PCR) Blood Type Antibody Screen 01/01/21 01/01/21 01/01/21 15:20 21:45 23:00 WBC RBC Hgb Hct MCV MCH MCHC RDW Plt Count MPV Immature Gran % (Auto) Neut % (Auto) Lymph % (Auto) Preston % (Auto) Eos % (Auto) Baso % (Auto) Lymph # (Auto) Preston # (Auto) Eos # (Auto) Baso # (Auto) Abs Immat Gran (auto) Absolute Neuts (auto) Absolute Nucleated RBC Nucleated RBC % (auto) Smear Tech's Comments Hold Purple Top PT INR Sodium 139 Potassium 3.7 Chloride 98 Carbon Dioxide 32 H Anion Gap 13 BUN 17 H Creatinine 1.24 Estim Creat Clear Calc 41.4 Estimated GFR 43 POC Glucose Random Glucose 274 H Lactic Acid 1.1 Calcium 9.7 D Magnesium 1.9 Total Bilirubin 0.5 Direct Bilirubin AST 21 D ALT 23 Alkaline Phosphatase 153 H Total Protein 6.2 L Albumin 3.7 Lipase 7 L Urine Color YELLOW Urine Appearance CLEAR Urine pH 6.0 Ur Specific Nelson 1.015 Urine Protein TRACE Urine Glucose (UA) 250 H Urine Ketones 5 Urine Blood NEG Urine Nitrite NEG Ur Leukocyte Esterase NEG Coronavirus (PCR) COVID-19 ([facility]) COVID-19 Clin Com Influenza Type A (PCR) Influenza Type B (PCR) RSV RNA Qual (PCR) Blood Type Antibody Screen 01/01/21 01/02/21 01/02/21 23:01 00:46 02:32 WBC RBC Hgb Hct MCV MCH MCHC RDW Plt Count MPV Immature Gran % (Auto) Neut % (Auto) Lymph % (Auto) Preston % (Auto) Eos % (Auto) Baso % (Auto) Lymph # (Auto) Preston # (Auto) Eos # (Auto) Baso # (Auto) Abs Immat Gran (auto) Absolute Neuts (auto) Absolute Nucleated RBC Nucleated RBC % (auto) Smear Tech's Comments Hold Purple Top PT INR Sodium Potassium Chloride Carbon Dioxide Anion Gap BUN Creatinine Estim Creat Clear Calc Estimated GFR POC Glucose 292 H Random Glucose Lactic Acid Calcium Magnesium Total Bilirubin Direct Bilirubin AST ALT Alkaline Phosphatase Total Protein Albumin Lipase Urine Color Urine Appearance Urine pH Ur Specific Nelson Urine Protein Urine Glucose (UA) Urine Ketones Urine Blood Urine Nitrite Ur Leukocyte Esterase Coronavirus (PCR) NEGATIVE COVID-19 ([facility]) Negative COVID-19 Clin Com See Note Influenza Type A (PCR) NEGATIVE Influenza Type B (PCR) NEGATIVE RSV RNA Qual (PCR) NEGATIVE Blood Type Antibody Screen 01/02/21 01/02/21 01/02/21 07:47 07:55 07:55 WBC 15.0 H RBC 3.38 L Hgb 9.3 L Hct 28.3 L MCV 83.7 MCH 27.5 MCHC 32.9 RDW 15.6 Plt Count 213 MPV 11.7 Immature Gran % (Auto) Neut % (Auto) Lymph % (Auto) Preston % (Auto) Eos % (Auto) Baso % (Auto) Lymph # (Auto) Preston # (Auto) Eos # (Auto) Baso # (Auto) Abs Immat Gran (auto) Absolute Neuts (auto) Absolute Nucleated RBC 0.000 Nucleated RBC % (auto) 0.0 Smear Tech's Comments Hold Purple Top PT INR Sodium 135 Potassium 3.5 Chloride 95 L Carbon Dioxide 33 H Anion Gap 11 L BUN 14 Creatinine 1.11 Estim Creat Clear Calc 46.2 Estimated GFR 49 POC Glucose 343 H Random Glucose 354 H* Lactic Acid Calcium 8.5 D Magnesium Total Bilirubin 1.4 H Direct Bilirubin 0.9 H AST 888 H ALT 432 H Alkaline Phosphatase 553 H D Total Protein 5.0 L Albumin 3.0 L Lipase Urine Color Urine Appearance Urine pH Ur Specific Nelson Urine Protein Urine Glucose (UA) Urine Ketones Urine Blood Urine Nitrite Ur Leukocyte Esterase Coronavirus (PCR) COVID-19 ([facility]) COVID-19 Clin Com Influenza Type A (PCR) Influenza Type B (PCR) RSV RNA Qual (PCR) Blood Type Antibody Screen 01/02/21 01/02/21 01/02/21 11:35 16:19 20:08 WBC RBC Hgb Hct MCV MCH MCHC RDW Plt Count MPV Immature Gran % (Auto) Neut % (Auto) Lymph % (Auto) Preston % (Auto) Eos % (Auto) Baso % (Auto) Lymph # (Auto) Preston # (Auto) Eos # (Auto) Baso # (Auto) Abs Immat Gran (auto) Absolute Neuts (auto) Absolute Nucleated RBC Nucleated RBC % (auto) Smear Tech's Comments Hold Purple Top PT INR Sodium Potassium Chloride Carbon Dioxide Anion Gap BUN Creatinine Estim Creat Clear Calc Estimated GFR POC Glucose 174 H 181 H 216 H Random Glucose Lactic Acid Calcium Magnesium Total Bilirubin Direct Bilirubin AST ALT Alkaline Phosphatase Total Protein Albumin Lipase Urine Color Urine Appearance Urine pH Ur Specific Nelson Urine Protein Urine Glucose (UA) Urine Ketones Urine Blood Urine Nitrite Ur Leukocyte Esterase Coronavirus (PCR) COVID-19 ([facility]) COVID-19 Clin Com Influenza Type A (PCR) Influenza Type B (PCR) RSV RNA Qual (PCR) Blood Type Antibody Screen 01/03/21 01/03/21 01/03/21 05:14 05:14 07:39 WBC 15.6 H RBC 3.02 L Hgb 8.2 L Hct 25.4 L MCV 84.1 MCH 27.2 MCHC 32.3 RDW 15.5 Plt Count 206 MPV 11.5 Immature Gran % (Auto) 0.6 H Neut % (Auto) 75.9 H Lymph % (Auto) 11.2 L Preston % (Auto) 9.8 Eos % (Auto) 2.0 Baso % (Auto) 0.5 Lymph # (Auto) 1.7 Preston # (Auto) 1.5 H Eos # (Auto) 0.3 Baso # (Auto) 0.1 Abs Immat Gran (auto) 0.10 H Absolute Neuts (auto) 11.8 H Absolute Nucleated RBC 0.000 Nucleated RBC % (auto) 0.0 Smear Tech's Comments VERIFIED Hold Purple Top PT INR Sodium Potassium Chloride Carbon Dioxide Anion Gap BUN Creatinine Estim Creat Clear Calc Estimated GFR POC Glucose 192 H Random Glucose Lactic Acid Calcium Magnesium Total Bilirubin 0.9 Direct Bilirubin 0.5 AST 159 H ALT 228 H Alkaline Phosphatase 418 H D Total Protein 4.4 L Albumin 2.6 L Lipase Urine Color Urine Appearance Urine pH Ur Specific Nelson Urine Protein Urine Glucose (UA) Urine Ketones Urine Blood Urine Nitrite Ur Leukocyte Esterase Coronavirus (PCR) COVID-19 ([facility]) COVID-19 Clin Com Influenza Type A (PCR) Influenza Type B (PCR) RSV RNA Qual (PCR) Blood Type Antibody Screen 01/03/21 01/03/21 01/03/21 11:28 16:45 21:02 WBC RBC Hgb Hct MCV MCH MCHC RDW Plt Count MPV Immature Gran % (Auto) Neut % (Auto) Lymph % (Auto) Preston % (Auto) Eos % (Auto) Baso % (Auto) Lymph # (Auto) Preston # (Auto) Eos # (Auto) Baso # (Auto) Abs Immat Gran (auto) Absolute Neuts (auto) Absolute Nucleated RBC Nucleated RBC % (auto) Smear Tech's Comments Hold Purple Top PT INR Sodium Potassium Chloride Carbon Dioxide Anion Gap BUN Creatinine Estim Creat Clear Calc Estimated GFR POC Glucose 164 H 385 H* 220 H Random Glucose Lactic Acid Calcium Magnesium Total Bilirubin Direct Bilirubin AST ALT Alkaline Phosphatase Total Protein Albumin Lipase Urine Color Urine Appearance Urine pH Ur Specific Nelson Urine Protein Urine Glucose (UA) Urine Ketones Urine Blood Urine Nitrite Ur Leukocyte Esterase Coronavirus (PCR) COVID-19 ([facility]) COVID-19 Clin Com Influenza Type A (PCR) Influenza Type B (PCR) RSV RNA Qual (PCR) Blood Type Antibody Screen 01/04/21 01/04/21 01/04/21 04:02 07:38 08:43 WBC RBC Hgb Hct MCV MCH MCHC RDW Plt Count MPV Immature Gran % (Auto) Neut % (Auto) Lymph % (Auto) Preston % (Auto) Eos % (Auto) Baso % (Auto) Lymph # (Auto) Preston # (Auto) Eos # (Auto) Baso # (Auto) Abs Immat Gran (auto) Absolute Neuts (auto) Absolute Nucleated RBC Nucleated RBC % (auto) Smear Tech's Comments Hold Purple Top PT INR Sodium Potassium Chloride Carbon Dioxide Anion Gap BUN Creatinine Estim Creat Clear Calc Estimated GFR POC Glucose 102 166 H Random Glucose Lactic Acid Calcium Magnesium Total Bilirubin Direct Bilirubin AST ALT Alkaline Phosphatase Total Protein Albumin Lipase Urine Color Urine Appearance Urine pH Ur Specific Nelson Urine Protein Urine Glucose (UA) Urine Ketones Urine Blood Urine Nitrite Ur Leukocyte Esterase Coronavirus (PCR) COVID-19 ([facility]) COVID-19 Clin Com Influenza Type A (PCR) Influenza Type B (PCR) RSV RNA Qual (PCR) Blood Type A Positive Antibody Screen NEGATIVE Airway Mallampati Class: III TM Dist: >3cm Neck ROM: Limited Loose/Missing/Broken Teeth: Yes Heart: RRR Lungs: CTA Assessment and Plan Assessment Anesthesia Assessment: Anesthesia Plan Discussed and Chart Reviewed Final Anesthetic Review History of Problems with Anesthesia: No NPO: Yes ASA Class: III Final Preanesthetic Review: Meds/Allgs Chart Reviewed, Consent Obtained/Reviewed and Anes Risks/Benef Reviewed Patient Risk: Intermediate Procedure Risk: Intermediate Anesthetic Plan Anesthetic Plan: GA Disposition: Standard PACU
--- NOTE | 2021-01-04 10:37 | PC.NURSE ---
delivered one unit of rbcs to [facility] for transfusion
--- NOTE | 2021-01-04 12:12 | W.PM.OPN ---
Operative Note Operative Note Date of Service: 01/04/21 Narrative: Preop diagnosis: Acute cholecystitis Postop diagnosis: Acute cholecystitis, with hydrops, and purulent gallbladder contents Procedure: Laparoscopic cholecystectomy, lysis of adhesions surrounding the liver, using the LigaSure Surgeon: Tay Pelayo MD licensed physical therapy assistant: MARK Gallegos The patient is a 70-year-old female who was admitted on 2020 because of right upper quadrant pain with a CT scan and ultrasound both showing thickening of the gallbladder wall and distension consistent with acute cholecystitis. The patient has a significant cardiac history and chronic anemia. She initially wanted to proceed with operative treatment for her gallbladder disease. She was also on Plavix at that time. This was therefore held A cardiology consult had been done to evaluate her for perioperative risks. She was deemed to be at intermediate risk. The patient eventually had stated yesterday that she wanted to proceed with cholecystectomy in view of her persistent pain. She had been off on Plavix at least 1-2 days already. I reviewed the technique of cholecystectomy. I explained the risks including but not limited to bleeding, infections, injury to the bowel, liver, biliary duct, bile leak, retained stones, as well as the benefits and alternatives and she had given consent Her son was involved during the decision making. She was brought to the operating room and placed supine on table. She was in general anesthesia via endotracheal tube. The abdomen was prepped and draped in the usual sterile fashion. A surgical time-out was done. The patient received Cefotan 2 g IV preoperatively I made a short supraumbilical incision in the skin using blade 15. And this was carried down through the full-thickness skin subcutaneous fat down to the fascia. The fascia was incised the peritoneum was entered. Through this incision a Elva port was introduced. Pneumoperitoneum was introduced to a pressure of 15 mm hg. From here on the rest of procedure was done under vision with a 10 mm laparoscope. Under laparoscopic visualization I inserted a 5/12 mm port in the epigastric area below the subcostal margin. 5 mm ports were introduced through small incisions below the subcostal margin along the anterior axillary line and the midclavicular line. Examination of the right upper quadrant showed that the omentum was covering the anterior wall the gallbladder so had to carefully dissect this bluntly with the [place] dissector until was able to expose at least part of the fundus of the gallbladder. I was able to apply a grasper at the fundus and this was used to retract the gallbladder a little cephalad as best as possible. I continue to therefore expose the anterior wall by carefully dissecting the rest of the omentum. The gallbladder is markedly distended, very thickened and erythematous so we had to decompress this with an aspirating needle. By decompressing this, were able to apply another grasper towards the body of the gallbladder to retract this laterally. At this point therefore the gallbladder was being retracted in a cephalad and lateral fashion. However, retractions limited because of the number of adhesions abdominal the gallbladder and the liver edge. We had therefore had to use the LigaSure to carefully divide all these adhesions and allow more mobilization of the liver and the gallbladder. There was note of a tear adjacent to the gallbladder as well on the liver with subsequent oozing. This was due to retraction Eventually I was able to at least visualize the entire gallbladder. I retracted this in such a way as to put the approximate area of the cystic duct on stretch. There was note of a lot of thickened, indurated and acutely inflamed tissue surrounding the neck and the gallbladder extending all the way to the area of the cystic duct. We had to do a lot of dissection with the [place] dissector and the tip of the suction to carefully thin out this area of inflamed tissue. This part of the procedure took an extended period of time because of the amount of indurated tissue. We carefully dissected in a layer by layer fashion until I was able to be a semblance of the cystic duct. Continue to carefully dissect this until was a had circumferential exposure of the cystic duct. We were able to confirm its confluence with the neck of the gallbladder. There was a lot of other inflamed tissue in the hilum but it did not appear that there was any other tubular structure. With this critical view, I therefore proceeded to apply clips on the cystic duct with 2 clips applied distally the cystic duct was retracted in clips using Endo scissors. Continued to gently dissect through the hilum to identify any other structures specially cystic artery. Continued with dissection very slowly in view of the severe induration. Eventually I saw another structure that appeared to be the cystic duct so this was clipped and transected between clips At some point, and these clips loosened so we had to apply more clips on this stump. There was no bleeding however It is noted that in view of the acute inflammatory process surrounding the gallbladder wall with, we had consistent steady oozing throughout the procedure. Since at this time we had a transected and clipped both the cystic duct and cystic artery I proceeded to then continue to dissect to the hilum with [place] dissector all the way bluntly until I was able to reach the interface of the gallbladder wall and the liver bed. I initially used the electrocautery spatula to incise the peritoneum of the gallbladder but eventually had to switch to an L hook cautery because of the very thick rind in acute inflammatory tissue. Continue to divide the thickened, inflamed peritoneum for from the gallbladder wall to carefully separate this the liver bed. The planes were over very poor and difficult so he had oozing throughout the entire dissection. We continued with this dissection all the way until we reached the fundus and the entire gallbladder was completely The gallbladder was retrieved through an endobag through the umbilical incision. There was note of some pus from the gallbladder that was leaking during the procedure from consistent with hydrops and purulent cholecystitis I then applied Surgicel on the liver bed. I observed for about for 3 minutes and there seemed to be good hemostasis without any note of arterial bleeding or brisk bleeding. I have self or 4 quadrants and there was no other pathology I irrigated and suctioned the irrigant fluid I positioned a MARGUERITE 7. Drain in the subhepatic space and this was brought out through on 1 of the port site is. This was secured to the skin with nylon 3-0 anchoring sutures Again I observed for hemostasis. Once hemostasis was ensured I proceeded to desufflate the port sites and removed all ports. The umbilical port from was removed last. The fascia of the umbilical incision was closed with [id number] Dexon 0 stitch Skin closure was achieved in all incisions using Dexon 4-0 subcuticular sutures. Steri-Strips and dressings were applied. All incisions were infiltrated with Marcaine 0.5% for postop analgesia. The procedure was completed The patient tolerated procedure well and there were no complications noted. Initial and final counts of sponges and instruments were correct. Estimated blood loss about 300 The patient had been transfused 1 unit of packed RBC at the beginning of the case in view of her cardiac history. She was then extubated and transferred to the recovery room with stable vital signs.
--- NOTE | 2021-01-04 12:28 | PM.OP ---
Brief Operative Note Date of Service: 01/04/21 Pre-op diagnosis: acute cholecystitis Post-op diagnosis: same Procedure: laparoscopic cholecystectomy Surgeon: KETAN SUMMERS MD Anesthesia: GETA Was an Pitting Machine Operator used for this Procedure?: Yes Pitting Machine Operator: Lashawn Gallegos Estimated blood loss (mL): 300 Pathology: other (GALLBLADDER) Condition: stable Disposition: PACU
[2021-01-04] MEDS: HYDROmorphone HCl 0.5 MG/0.5 ML SYRINGE 0.25 MG IVPUSH (12:45)
[2021-01-04] MEDS: Morphine Sulfate 4 MG/ML CARTRIDGE 3 MG IVPUSH (13:48)
--- NOTE | 2021-01-04 15:26 | PM.EVENT ---
Event Note Date of Service: 01/04/21 Event Note: Seen postop - had purulent cholecystitis Seems to have good pain control MARGUERITE drain with dark blood Abdomen soft Stable vital signs Pain management Son updated Doing well postop
[2021-01-04] MEDS: oxyCODONE HCl Immed Release 5 MG TABLET PO ×2 (17:01→22:19)
[2021-01-04] MEDS: Insulin Lispro 100 UNIT/ML 3 ML VIAL SUBCUT ×2 (17:02→22:13)
[2021-01-04 17:29] LABS: Glucose, Whole Blood 253 mg/dL (60-115)
[2021-01-04] MEDS: 0.9 % Sodium Chloride Flush 3 ML SYRINGE IVFLUSH (17:50)
[2021-01-04 20:53] LABS: Glucose, Whole Blood 207 mg/dL (60-115)
[2021-01-04] MEDS: ARIPiprazole 20 MG TABLET PO (22:13)
[2021-01-04] MEDS: Prazosin HCL 1 MG CAPSULE 4 MG PO (22:20)
[2021-01-04] MEDS: carvediloL 6.25 MG TABLET PO (22:21)
[2021-01-05] VITALS (11 sets, daily range): BP systolic 123–147; BP diastolic 44–67; PULSE 75–92; RESP 15–19; TEMP 36.1–37.3; O2SAT 94–98
[2021-01-05] MEDS: 0.9 % Sodium Chloride 1,000 ML 80 ML IVCONT (00:37)
[2021-01-05] MEDS: Piperacillin Sodium/Tazobactam 3.375 GM in 0.9 % Sodium Chloride 50 ML IV ×4 (03:33→21:58)
[2021-01-05] MEDS: Levothyroxine Sodium 88 MCG TABLET PO (05:16)
[2021-01-05] MEDS: Omeprazole 20 MG CAPSULE.DR PO (05:16)
[2021-01-05 06:09] LABS: MANUAL DIFF FLAG NO
[2021-01-05 06:15] LABS: Basophils Absolute Auto 0.1 X10*3/uL (0.0-0.2); Basophils Percent Auto 0.5 % (0-2); Eosinophils Absolute Auto 0.1 X10*3/uL (0.0-0.4); Eosinophils Percent Auto 0.4 % (0-4); Hematocrit 28.9 % (37-47); Hemoglobin 9.7 g/dl (12.0-16.0); Imm Gran Abs Auto 0.09 X10*3/uL (0.00-0.03); Imm Gran Pct Auto 0.7 % (0.0-0.4); Lymphocytes Absolute Auto 1.6 X10*3/uL (1.2-4.9); Lymphocytes Percent Auto 12.5 % (20-40); Mean Corpuscular HGB Conc 33.6 g/dl (31.0-35.0); Mean Corpuscular Hemoglobin 27.9 pg (27.0-33.0); Mean Platelet Volume 10.3 fL (9.4-12.3); Monocytes Absolute Auto 1.3 X10*3/uL (0.1-1.2); Neutrophils Absolute Auto 9.8 X10*3/uL (2.0-8.3); Neutrophils Percent Auto 75.9 % (45-73); Platelet Count 269 X10*3/uL (160-400); Red Blood Count 3.48 X10*6/uL (4.20-5.50); Red Cell Distribution Width 14.8 % (11.0-16.0); White Blood Count 12.9 X10*3/uL (4.8-10.8)
[2021-01-05 06:42] LABS: Anion Gap 16 (12-20); Blood Urea Nitrogen 8 mg/dL (9-16); Calcium 7.7 mg/dL (8.4-10.2); Carbon Dioxide 24 mmol/L (22-29); Chloride 103 mmol/L (96-108); Creatinine Clr Calc Pharmacy 55.3; Estimated Glomerular Filt Rate 60; Glucose Fasting 185 mg/dL (60-99); Potassium 3.8 mmol/L (3.3-5.1); Sodium 139 mmol/L (135-145)
--- NOTE | 2021-01-05 06:51 | HO.POSTANES ---
Post Anesthesia Evaluation Post Anesthesia Evaluation Vital Signs: Vital Signs Temp Pulse Resp BP Pulse Ox 01/05/21 04:00 96.9 F 84 18 147/58 H 96 01/05/21 01:25 96.9 F 75 18 133/59 L 97 01/04/21 22:21 90 145/64 H 01/04/21 22:20 90 145/64 H Anesthesia: General Endotracheal-GETA Mental Status: Awake Pain Control: Satisfactory Nausea/Vomiting: None Hydration: Adequate Anesthesia-Related Issues: No Anes. Related Issues
[2021-01-05 07:35] LABS: Glucose, Whole Blood 209 mg/dL (60-115)
[2021-01-05] MEDS: amLODIPine Besylate 10 MG TABLET PO (08:02)
[2021-01-05] MEDS: Insulin Lispro 100 UNIT/ML 3 ML VIAL SUBCUT ×4 (08:02→20:43)
[2021-01-05] MEDS: Cholecalciferol (Vitamin D3) 25 MCG TABLET 50 MCG PO (08:03)
[2021-01-05] MEDS: Venlafaxine HCl ER 150 MG CAP.ER.24H PO (08:03)
[2021-01-05] MEDS: carvediloL 6.25 MG TABLET PO ×2 (08:03→20:26)
[2021-01-05] MEDS: oxyCODONE HCl Immed Release 5 MG TABLET PO (09:25)
--- NOTE | 2021-01-05 10:14 | P.PNGS_ITS ---
Subjective Subjective Date of Service: 01/05/21 <Lashawn Gallegos PA-C - Last Filed: 01/05/21 10:37> 01/05/21 <Tay Pelayo MD - Last Filed: 01/05/21 11:52> Interval history: Feels better this morning, c/o incisional pain but controlled. Tolerating diet. <Lasahwn Gallegos PA-C - Last Filed: 01/05/21 10:37> Physical Exam Vital Signs: Vital Signs: Last Vital Signs Temp 98.9 F 01/05/21 07:32 Pulse 90 01/05/21 08:03 Resp 15 01/05/21 07:32 BP 125/44 L 01/05/21 08:03 Pulse Ox 97 01/05/21 07:32 Body Mass Index 40.4 <CARLOS Minaya Last Filed: 01/05/21 10:37> Const: General: comfortable, no acute distress and alert <Lashawn Gallegos PA-C - Last Filed: 01/05/21 10:37> Orientation/consciousness: patient oriented x3 <Lashawn Gallegos PA-C - Last Filed: 01/05/21 10:37> Resp: Effort & Inspection: normal respiratory effort <Lashawn Gallegos PA-C - Last Filed: 01/05/21 10:37> Cardio: Rate: regular rate <Lashawn Gallegos PA-C - Last Filed: 01/05/21 10:37> GI: Inspection: No distended and Yes incision (dressings c/d/i) <Lashawn Gallegos PA-C - Last Filed: 01/05/21 10:37> Palpation (GI): Soft to palpation, Tenderness to palpation present (GI) (incisional), no guarding and not rigid <CARLOS Minaya Last Filed: 01/05/21 10:37> Percussion: Yes normal to percussion <CARLOS Minaya Last Filed: 01/05/21 10:37> Skin: General skin exam: no rashes or lesions noted <CARLOS Minaya Last Filed: 01/05/21 10:37> Neuro: General: patient oriented x3 <Lashawn Gallegos PA-C - Last Filed: 01/05/21 10:37> Procedures Date of Service Date of Service: 01/05/21 <Lashawn Gallegos PA-C - Last Filed: 01/05/21 10:37> Progress Note: A&P Assessment and plan (1) Diabetes: Status: Acute <CARLOS Minaya Last Filed: 01/05/21 10:37> (2) Cholecystitis: Status: Acute <Lashawn Gallegos PA-C - Last Filed: 01/05/21 10:37> Assessment and Plan: Status post lap olman Seems to be doing well postop Good pain control abdomen soft MARGUERITE drain - scanty thick old blood Plan to DC home may be tomorrow Discussed with alphonso Blanc Seen and examined - agree with MARK Gallegos <Tay Pelayo MD - Last Filed: 01/05/21 11:52> (3) Elevated liver function tests: Status: Acute <Lashawn Gallegos PA-C - Last Filed: 01/05/21 10:37> (4) S/P laparoscopic cholecystectomy: Status: Acute <Lashawn Gallegos PA-C - Last Filed: 01/05/21 10:37> Assessment and Plan: 70 year old female admitted for acute cholecytitis. Nonoperative management was trialed and she had persistent pain. She is now POD #1 s/p lap CCY. Received 1U PRBC pre op yesterday. She is doing fairly well post op. VSS. Abd exam with appropriate post op tenderness, dressings c/d/i. AM labs reviewed- H/H stable. Cont to hold plavix. Will repeat labs tomorrow and if remain stable, resume tomorrow. Likely discharge over the weekend. <Lashawn Gallegos PA-C - Last Filed: 01/05/21 10:37> Fall Risk Details Current Medications: Current Medications Generic Name Dose Route Start Last Admin Trade Name Freq PRN Reason Stop Dose Admin Albuterol Sulfate 2.5 mg 01/04/21 11:02 Albuterol Sulfate (0.083%) 2.5 Mg/3 Ml Vial.Neb INHALE ONCE PRN Wheezing Amlodipine Besylate 10 mg 01/03/21 09:00 01/05/21 08:02 Amlodipine Besylate 10 Mg Tablet PO 10 mg DAILY [facility] Administration Protocol Aripiprazole 20 mg 01/02/21 21:00 01/04/21 22:13 Aripiprazole 20 Mg Tablet PO 20 mg BEDTIME SARAH Administration Carvedilol 6.25 mg 01/02/21 21:00 01/05/21 08:03 Carvedilol 6.25 Mg Tablet PO 6.25 mg BID SARAH Administration Protocol Clonazepam 0.5 mg 01/02/21 12:19 Clonazepam 0.5 Mg Tablet PO Q8H PRN anxiety Piperacillin Sod/Tazobactam 50 mls @ 100 mls/hr 01/02/21 10:00 01/05/21 10:02 Sod 3.375 gm/ Sodium Chloride IV Infused Q6H [facility] Infusion Insulin Human Lispro 0 unit 01/02/21 11:30 01/05/21 08:02 Insulin Lispro 100 Unit/Ml 3 Ml Vial SUBCUT 4 unit QIDACHS [facility] Administration Protocol Levothyroxine Sodium 88 mcg 01/03/21 06:30 01/05/21 05:16 Levothyroxine Sodium 88 Mcg Tablet PO 88 mcg DAILY@0630 [facility] Administration Morphine Sulfate 3 mg 01/02/21 01:11 01/04/21 13:48 Morphine Sulfate 4 Mg/Ml Cartridge IVPUSH 3 mg Q3H PRN Administration Pain, Severe (Pain Scale 7-10) Protocol Omeprazole 20 mg 01/03/21 06:30 01/05/21 05:16 Omeprazole 20 Mg Capsule.Dr PO 20 mg DAILY@0630 [facility] Administration Ondansetron HCl 4 mg 01/02/21 01:11 01/02/21 02:39 Ondansetron Hcl 4 Mg/2 Ml Vial IVPUSH 4 mg Q8H PRN Administration nausea Oxycodone HCl 5 mg 01/04/21 14:19 01/05/21 09:25 Oxycodone Hcl Immed Release 5 Mg Tablet PO 5 mg Q4H PRN Administration Pain, Moderate (Pain Scale 4-6 Pharmacy Consult 1 each 01/02/21 08:18 Consult Rx Perform Med Rec MISCELLANE ONCE PRN Consult order Prazosin HCl 4 mg 01/02/21 21:00 01/04/21 22:20 Prazosin Hcl 1 Mg Capsule PO 4 mg BEDTIME SARAH Administration Protocol Sodium Chloride 3 ml 01/02/21 08:00 01/05/21 07:16 0.9 % Sodium Chloride Flush 3 Ml Syringe IVFLUSH Not Given QSHIFT SARAH Venlafaxine HCl 150 mg 01/03/21 09:00 01/05/21 08:03 Venlafaxine Hcl Er 150 Mg Cap.Er.24h PO 150 mg DAILY [facility] Administration Vitamin D 50 mcg 01/03/21 09:00 01/05/21 08:03 Cholecalciferol (Vitamin D3) 25 Mcg Tablet PO 50 mcg DAILY [facility] Administration <Lashawn Gallegos PA-C - Last Filed: 01/05/21 10:37> Time Spent With Patient Time: Total time spent is greater than 50% in coordination of care (as documented) at patient's floor/unit and/or counseling patient: <Lashawn Gallegos PA-C - Last Filed: 01/05/21 10:37> Time with patient: less than 15 minutes <Lashawn Gallegos PA-C - Last Filed: 01/05/21 10:37> Quality Stroke Does the patient have a stroke diagnosis?: No <Lashawn Gallegos PA-C - Last Filed: 01/05/21 10:37> VTE Prior VTE?: No <Lashawn Gallegos PA-C - Last Filed: 01/05/21 10:37> VTE Risk Level:: Medical - moderate - high <CARLOS Minaya Last Filed: 01/05/21 10:37> VTE Device Contraindication: N/A - Device Ordered <Lashawn Gallegos PA-C - Last Filed: 01/05/21 10:37> VTE Drug Contraindication: N/A - Med Ordered <Lashawn Gallegos PA-C - Last Filed: 01/05/21 10:37>
[2021-01-05 11:21] LABS: Glucose, Whole Blood 186 mg/dL (60-115)
[2021-01-05] MEDS: Morphine Sulfate 4 MG/ML CARTRIDGE 3 MG IVPUSH ×3 (12:18→20:36)
--- NOTE | 2021-01-05 13:40 | HO.PM.IMPN ---
Subjective Subjective Date of Service: 01/05/21 Interval History: Seen in f/u for cholecystitis, POD 1 for CCY, has some pain Review of Systems no fever some abdominal pain Physical Exam Vital Signs: Vital Signs: Last Vital Signs Temp 98.3 F 01/05/21 11:15 Pulse 92 01/05/21 11:15 Resp 18 01/05/21 12:18 BP 125/60 01/05/21 11:15 Pulse Ox 94 01/05/21 11:15 Body Mass Index 40.4 General: AO X 3, no acute distress Resp: CTA bilateral CVS: S1,S2,RRR GI: mild tenderness around incisions, Skin: No rash Neuro: motor grossly intact Psych: appropriate affect Objective Data Active Medications Albuterol Sulfate (Albuterol Sulfate (0.083%) 2.5 Mg/3 Ml Vial.Neb) 2.5 mg INHALE ONCE PRN PRN Reason: Wheezing Amlodipine Besylate (Amlodipine Besylate 10 Mg Tablet) 10 mg PO DAILY [facility]; Protocol Last Admin: 01/05/21 08:02 Dose: 10 mg Documented by: COTEMA Aripiprazole (Aripiprazole 20 Mg Tablet) 20 mg PO BEDTIME [facility] Last Admin: 01/04/21 22:13 Dose: 20 mg Documented by: TUMASY Carvedilol (Carvedilol 6.25 Mg Tablet) 6.25 mg PO BID [facility]; Protocol Last Admin: 01/05/21 08:03 Dose: 6.25 mg Documented by: COTEMA Clonazepam (Clonazepam 0.5 Mg Tablet) 0.5 mg PO Q8H PRN PRN Reason: anxiety Piperacillin Sod/Tazobactam (Sod 3.375 gm/ Sodium Chloride) 50 mls @ 100 mls/hr IV Q6H [facility] Last Infusion: 01/05/21 10:02 Dose: 0 mls/hr Documented by: COTEMA Insulin Human Lispro (Insulin Lispro 100 Unit/Ml 3 Ml Vial) 0 unit SUBCUT QIDACHS [facility]; Protocol Last Admin: 01/05/21 11:49 Dose: 2 unit Documented by: COTEMA Levothyroxine Sodium (Levothyroxine Sodium 88 Mcg Tablet) 88 mcg PO DAILY@0630 [facility] Last Admin: 01/05/21 05:16 Dose: 88 mcg Documented by: MAY Morphine Sulfate (Morphine Sulfate 4 Mg/Ml Cartridge) 3 mg IVPUSH Q3H PRN; Protocol PRN Reason: Pain, Severe (Pain Scale 7-10) Last Admin: 01/05/21 12:18 Dose: 3 mg Documented by: JAREK Omeprazole (Omeprazole 20 Mg Capsule.Dr) 20 mg PO DAILY@0630 [facility] Last Admin: 01/05/21 05:16 Dose: 20 mg Documented by: MAY Ondansetron HCl (Ondansetron Hcl 4 Mg/2 Ml Vial) 4 mg IVPUSH Q8H PRN PRN Reason: nausea Last Admin: 01/02/21 02:39 Dose: 4 mg Documented by: ROSIE Oxycodone HCl (Oxycodone Hcl Immed Release 5 Mg Tablet) 5 mg PO Q4H PRN PRN Reason: Pain, Moderate (Pain Scale 4-6 Last Admin: 01/05/21 09:25 Dose: 5 mg Documented by: ILIANA Pharmacy Consult (Consult Rx Perform Med Rec) 1 each MISCELLANE ONCE PRN PRN Reason: Consult order Prazosin HCl (Prazosin Hcl 1 Mg Capsule) 4 mg PO BEDTIME [facility]; Protocol Last Admin: 01/04/21 22:20 Dose: 4 mg Documented by: TUMASY Sodium Chloride (0.9 % Sodium Chloride Flush 3 Ml Syringe) 3 ml IVFLUSH QSHIFT [facility] Last Admin: 01/05/21 07:16 Dose: Not Given Documented by: JAREK Non-Admin Reason: IV Running Venlafaxine HCl (Venlafaxine Hcl Er 150 Mg Cap.Er.24h) 150 mg PO DAILY [facility] Last Admin: 01/05/21 08:03 Dose: 150 mg Documented by: JAREK Vitamin D (Cholecalciferol (Vitamin D3) 25 Mcg Tablet) 50 mcg PO DAILY [facility] Last Admin: 01/05/21 08:03 Dose: 50 mcg Documented by: JAREK Labs CBC & Chem 7: 01/05/21 05:14 01/05/21 05:14 Labs: Laboratory Results - last 24 hr 01/04/21 01/04/21 01/05/21 16:54 20:25 05:14 MCV 83.0 MCH 27.9 MCHC 33.6 RDW 14.8 Plt Count 269 D MPV 10.3 Immature Gran % (Auto) 0.7 H Neut % (Auto) 75.9 H Lymph % (Auto) 12.5 L [place] % (Auto) 10.0 Eos % (Auto) 0.4 Baso % (Auto) 0.5 Lymph # (Auto) 1.6 [place] # (Auto) 1.3 H Eos # (Auto) 0.1 Baso # (Auto) 0.1 Abs Immat Gran (auto) 0.09 H Absolute Neuts (auto) 9.8 H Absolute Nucleated RBC 0.000 Nucleated RBC % (auto) 0.0 Anion Gap Estim Creat Clear Calc Estimated GFR POC Glucose 253 H 207 H Fasting Glucose Calcium 01/05/21 01/05/21 01/05/21 05:14 07:29 11:14 MCV MCH MCHC RDW Plt Count MPV Immature Gran % (Auto) Neut % (Auto) Lymph % (Auto) [place] % (Auto) Eos % (Auto) Baso % (Auto) Lymph # (Auto) [place] # (Auto) Eos # (Auto) Baso # (Auto) Abs Immat Gran (auto) Absolute Neuts (auto) Absolute Nucleated RBC Nucleated RBC % (auto) Anion Gap 16 Estim Creat Clear Calc 55.3 Estimated GFR 60 POC Glucose 209 H 186 H Fasting Glucose 185 H Calcium 7.7 L D Microbiology Microbiology Results: Microbiology 01/01/21 21:45 Blood Culture - Final Blood - Venous Coag negative Staphylococcus Assessment and Plan (1) Diabetes: Status: Acute (2) Preop cardiovascular exam: Status: Acute (3) Cholecystitis: Status: Acute (4) Anemia: Status: Acute Assessment and Plan: 70/F with DM, HTN, HLD, hypothyroidism here with acute cholecystitits 1/Acute cholecystitis s/p CCY on 01/04 -post op management by surgery 2/Diabetes-uncontrolled--SSI, hold long acting 3/ HTN--continue Coreg, Norvasc 4/ Hypothyroidism--Levothyroxine 5/ HLD--no statin d/t high LFTS 6/Cholecystitis--continue Zosyn, LFTs trending down 7/Anemia--likely of chronic disease, slightly lower, Monitor 8/h/o of CAD, no angian, plavix on hold, continue Coreg, lipitor Quality Stroke Does the patient have a stroke diagnosis?: No VTE Prior VTE?: No VTE Risk Level:: Medical - moderate - high VTE Device Contraindication: N/A - Device Ordered VTE Drug Contraindication: N/A - Med Ordered
[2021-01-05] MEDS: 0.9 % Sodium Chloride 1,000 ML 50 ML IVCONT (13:54)
--- NOTE | 2021-01-05 15:13 | MHC.CM.PN ---
EMR REVIEWED, PT S/P ADAN ON 01/04/21, PT RECEIVED 1 UNIT PRBCS, MARGUERITE DRAIN DRAING THICK OLD BLOOD, PER SURGICAL DRAIN WILL BE REMOVED PRIOR TO D/C, POSSIBLE D/C OVER W/E IF LABS REMAIN STABLE. CM MET W/PT VIA [employer] AND PT REPORTED SHE WOULD LIKE A VNA AT HOME, REFERRAL PLACED TO [facility] AND [facility] NOTIFIED. CM WILL CONT TO FOLLOW. D/C PLAN: HOME W/NEW VNA FOR SN, SON TO TRANSPORT.
[2021-01-05 16:21] LABS: Glucose, Whole Blood 174 mg/dL (60-115)
[2021-01-05 20:25] LABS: Glucose, Whole Blood 191 mg/dL (60-115)
[2021-01-05] MEDS: Prazosin HCL 1 MG CAPSULE 4 MG PO (20:26)
[2021-01-05] MEDS: ARIPiprazole 20 MG TABLET PO (20:26)
[2021-01-06] VITALS (12 sets, daily range): BP systolic 122–138; BP diastolic 60–67; PULSE 74–93; RESP 16–18; TEMP 35.9–36.8; O2SAT 91–98
[2021-01-06] MEDS: Piperacillin Sodium/Tazobactam 3.375 GM in 0.9 % Sodium Chloride 50 ML IV ×4 (03:59→21:29)
[2021-01-06] MEDS: Omeprazole 20 MG CAPSULE.DR PO (05:15)
[2021-01-06] MEDS: Levothyroxine Sodium 88 MCG TABLET PO (05:15)
[2021-01-06 05:41] LABS: MANUAL DIFF FLAG NO
[2021-01-06 05:49] LABS: Basophils Absolute Auto 0.1 X10*3/uL (0.0-0.2); Basophils Percent Auto 0.5 % (0-2); Eosinophils Absolute Auto 0.6 X10*3/uL (0.0-0.4); Eosinophils Percent Auto 3.8 % (0-4); Hematocrit 25.3 % (37-47); Hemoglobin 8.5 g/dl (12.0-16.0); Imm Gran Pct Auto 1.9 % (0.0-0.4); Lymphocytes Absolute Auto 1.7 X10*3/uL (1.2-4.9); Lymphocytes Percent Auto 10.9 % (20-40); Mean Corpuscular HGB Conc 33.6 g/dl (31.0-35.0); Mean Corpuscular Hemoglobin 27.4 pg (27.0-33.0); Mean Corpuscular Volume 81.6 fL (80-98); Mean Platelet Volume 10.3 fL (9.4-12.3); Monocytes Absolute Auto 1.4 X10*3/uL (0.1-1.2); Neutrophils Absolute Auto 11.6 X10*3/uL (2.0-8.3); Neutrophils Percent Auto 73.9 % (45-73); Platelet Count 265 X10*3/uL (160-400); Red Cell Distribution Width 14.4 % (11.0-16.0); White Blood Count 15.8 X10*3/uL (4.8-10.8)
[2021-01-06 07:38] LABS: Glucose, Whole Blood 292 mg/dL (60-115)
[2021-01-06] MEDS: Insulin Lispro 100 UNIT/ML 3 ML VIAL SUBCUT ×4 (07:48→21:29)
[2021-01-06] MEDS: 0.9 % Sodium Chloride 1,000 ML 50 ML IVCONT (07:55)
--- NOTE | 2021-01-06 08:28 | HO.PM.IMPN ---
Subjective Subjective Date of Service: 01/06/21 Interval History: seen in f/u for medical issues of diabetes, HTN, CAD.. she's s/p cholecystectomy, post day 2. She is still having pain, Review of Systems no fever no n/v has abdominal pain Physical Exam Vital Signs: Vital Signs: Last Vital Signs Temp 97.7 F 01/06/21 08:00 Pulse 93 01/06/21 08:00 Resp 17 01/06/21 08:00 BP 132/63 01/06/21 08:00 Pulse Ox 98 01/06/21 08:00 Body Mass Index 40.4 General: AO X 3, no acute distress Resp:? CTA bilateral CVS: S1,S2,RRR GI: mild tenderness around incisions, drain is in place with serosanguinous fluid Skin: No rash Neuro:? motor grossly intact Psych: appropriate affect Objective Data Active Medications Albuterol Sulfate (Albuterol Sulfate (0.083%) 2.5 Mg/3 Ml Vial.Neb) 2.5 mg INHALE ONCE PRN PRN Reason: Wheezing Amlodipine Besylate (Amlodipine Besylate 10 Mg Tablet) 10 mg PO DAILY [facility]; Protocol Last Admin: 01/05/21 08:02 Dose: 10 mg Documented by: JAREK Aripiprazole (Aripiprazole 20 Mg Tablet) 20 mg PO BEDTIME SARAH Last Admin: 01/05/21 20:26 Dose: 20 mg Documented by: MABEL Carvedilol (Carvedilol 6.25 Mg Tablet) 6.25 mg PO BID [facility]; Protocol Last Admin: 01/05/21 20:26 Dose: 6.25 mg Documented by: MABEL Clonazepam (Clonazepam 0.5 Mg Tablet) 0.5 mg PO Q8H PRN PRN Reason: anxiety Piperacillin Sod/Tazobactam (Sod 3.375 gm/ Sodium Chloride) 50 mls @ 100 mls/hr IV Q6H [facility] Last Infusion: 01/06/21 04:38 Dose: 0 mls/hr Documented by: MABEL Sodium Chloride (Ns) 1,000 mls @ 50 mls/hr IVCONT .Q20H [facility]AH Last Admin: 01/06/21 07:55 Dose: 50 mls/hr Documented by: SADIE Insulin Human Lispro (Insulin Lispro 100 Unit/Ml 3 Ml Vial) 0 unit SUBCUT QIDACHS [facility]; Protocol Last Admin: 01/06/21 07:48 Dose: 6 unit Documented by: SADIE Levothyroxine Sodium (Levothyroxine Sodium 88 Mcg Tablet) 88 mcg PO DAILY@629 [facility] Last Admin: 01/06/21 05:15 Dose: 88 mcg Documented by: MABEL Morphine Sulfate (Morphine Sulfate 4 Mg/Ml Cartridge) 3 mg IVPUSH Q3H PRN; Protocol PRN Reason: Pain, Severe (Pain Scale 7-10) Last Admin: 01/05/21 20:36 Dose: 3 mg Documented by: MABEL Omeprazole (Omeprazole 20 Mg Capsule.Dr) 20 mg PO DAILY@629 [facility] Last Admin: 01/06/21 05:15 Dose: 20 mg Documented by: MABEL Ondansetron HCl (Ondansetron Hcl 4 Mg/2 Ml Vial) 4 mg IVPUSH Q8H PRN PRN Reason: nausea Last Admin: 01/02/21 02:39 Dose: 4 mg Documented by: ROSIE Oxycodone HCl (Oxycodone Hcl Immed Release 5 Mg Tablet) 5 mg PO Q4H PRN PRN Reason: Pain, Moderate (Pain Scale 4-6 Last Admin: 01/05/21 09:25 Dose: 5 mg Documented by: IILANA Pharmacy Consult (Consult Rx Perform Med Rec) 1 each MISCELLANE ONCE PRN PRN Reason: Consult order Prazosin HCl (Prazosin Hcl 1 Mg Capsule) 4 mg PO BEDTIME [facility]; Protocol Last Admin: 01/05/21 20:26 Dose: 4 mg Documented by: MABEL Sodium Chloride (0.9 % Sodium Chloride Flush 3 Ml Syringe) 3 ml IVFLUSH QSHIFT [facility] Last Admin: 01/06/21 07:49 Dose: Not Given Documented by: SADIE Non-Admin Reason: IV Running Venlafaxine HCl (Venlafaxine Hcl Er 150 Mg Cap.Er.24h) 150 mg PO DAILY [facility] Last Admin: 01/05/21 08:03 Dose: 150 mg Documented by: JAREK Vitamin D (Cholecalciferol (Vitamin D3) 25 Mcg Tablet) 50 mcg PO DAILY [facility] Last Admin: 01/05/21 08:03 Dose: 50 mcg Documented by: HO.COTEMA Labs CBC & Chem 7: 01/06/21 04:54 01/05/21 05:14 Labs: Laboratory Results - last 24 hr 01/05/21 01/05/21 01/05/21 11:14 16:17 20:14 MCV MCH MCHC RDW Plt Count MPV Immature Gran % (Auto) Neut % (Auto) Lymph % (Auto) [place] % (Auto) Eos % (Auto) Baso % (Auto) Lymph # (Auto) [place] # (Auto) Eos # (Auto) Baso # (Auto) Abs Immat Gran (auto) Absolute Neuts (auto) Absolute Nucleated RBC Nucleated RBC % (auto) POC Glucose 186 H 174 H 191 H 01/06/21 01/06/21 04:54 07:33 MCV 81.6 MCH 27.4 MCHC 33.6 RDW 14.4 Plt Count 265 MPV 10.3 Immature Gran % (Auto) 1.9 H Neut % (Auto) 73.9 H Lymph % (Auto) 10.9 L [place] % (Auto) 9.0 Eos % (Auto) 3.8 Baso % (Auto) 0.5 Lymph # (Auto) 1.7 [place] # (Auto) 1.4 H Eos # (Auto) 0.6 H Baso # (Auto) 0.1 Abs Immat Gran (auto) 0.30 H Absolute Neuts (auto) 11.6 H Absolute Nucleated RBC 0.000 Nucleated RBC % (auto) 0.0 POC Glucose 292 H Assessment and Plan (1) Diabetes: Status: Acute (2) Preop cardiovascular exam: Status: Acute (3) Cholecystitis: Status: Acute (4) Anemia: Status: Acute Assessment and Plan: 70/F with DM, HTN, HLD, hypothyroidism here with acute cholecystitits 1/Acute cholecystitis s/p CCY on 01/04 -post op management by surgery -continue Zosyn, once better oral Augmentin 2/Diabetes-uncontrolled--FBS of 292 today -continue SSI and add Lantus today 3/ HTN, controlled--continue Coreg, Norvasc 4/ Hypothyroidism--continue Levothyroxine 5/ HLD--no statin d/t high LFTS 7/Anemia--likely of chronic disease, slightly lower, Monitor for now 8/h/o of CAD, hold statin d/t high LFTs,, plavix on hold d/t anemia, continue Coreg, lipitor-- compression stocking for DVT prophylaxis for now given that H/H is trending down Quality Stroke Does the patient have a stroke diagnosis?: No VTE Prior VTE?: No VTE Risk Level:: Medical - moderate - high VTE Device Contraindication: N/A - Device Ordered VTE Drug Contraindication: N/A - Med Ordered
[2021-01-06] MEDS: Cholecalciferol (Vitamin D3) 25 MCG TABLET 50 MCG PO (09:17)
[2021-01-06] MEDS: amLODIPine Besylate 10 MG TABLET PO (09:17)
[2021-01-06] MEDS: carvediloL 6.25 MG TABLET PO ×2 (09:18→21:28)
[2021-01-06] MEDS: Insulin Glargine,Hum.rec.anlog 100 UNIT/ML 10 ML VIAL 10 UNIT SUBCUT (09:18)
[2021-01-06] MEDS: Venlafaxine HCl ER 150 MG CAP.ER.24H PO (09:18)
[2021-01-06] MEDS: Morphine Sulfate 4 MG/ML CARTRIDGE 3 MG IVPUSH ×2 (09:27→12:35)
--- NOTE | 2021-01-06 10:57 | PM.PNGS ---
Subjective Subjective Date of Service: 01/06/21 Interval history: Some incisional pain No events reported Tolerating diet Physical Exam Vital Signs: Vital Signs: Last Vital Signs Temp 97.7 F 01/06/21 08:00 Pulse 93 01/06/21 09:18 Resp 17 01/06/21 08:00 BP 132/63 01/06/21 09:18 Pulse Ox 98 01/06/21 08:00 Body Mass Index 40.4 Chemistry 01/05/21 05:14 Sodium 139 Potassium 3.8 Carbon Dioxide 24 BUN 8 L Creatinine 0.93 Calcium 7.7 L D Hematology 01/05/21 01/06/21 05:14 04:54 WBC 12.9 H 15.8 H Hgb 9.7 L 8.5 L Plt Count 269 D 265 Const: Other: Looks frail General: comfortable and no acute distress Resp: Effort & Inspection: normal respiratory effort Cardio: Rate: regular rate GI: Other: Soft, incisions dry MARGUERITE drain with dark thick blood Procedures Date of Service Date of Service: 01/06/21 Progress Note: A&P Assessment and plan (1) S/P laparoscopic cholecystectomy: Status: Acute Assessment and Plan: Status post lap olman Looks well Hemoglobin 8.5 - she does have chronic anemia and this is not far from baseline Follow hemoglobin Keep MARGUERITE in place Hold Plavix Possible DC home tomorrow or Friday Fall Risk Details Current Medications: Current Medications Albuterol Sulfate (Albuterol Sulfate (0.083%) 2.5 Mg/3 Ml Vial.Neb) 2.5 mg INHALE ONCE PRN PRN Reason: Wheezing Amlodipine Besylate (Amlodipine Besylate 10 Mg Tablet) 10 mg PO DAILY [facility]; Protocol Last Admin: 01/06/21 09:17 Dose: 10 mg Documented by: Aripiprazole (Aripiprazole 20 Mg Tablet) 20 mg PO BEDTIME SARAH Last Admin: 01/05/21 20:26 Dose: 20 mg Documented by: Carvedilol (Carvedilol 6.25 Mg Tablet) 6.25 mg PO BID [facility]; Protocol Last Admin: 01/06/21 09:18 Dose: 6.25 mg Documented by: Clonazepam (Clonazepam 0.5 Mg Tablet) 0.5 mg PO Q8H PRN PRN Reason: anxiety Piperacillin Sod/Tazobactam (Sod 3.375 gm/ Sodium Chloride) 50 mls @ 100 mls/hr IV Q6H [facility] Last Infusion: 01/06/21 10:40 Dose: Infused Documented by: Sodium Chloride (Ns) 1,000 mls @ 50 mls/hr IVCONT .Q20H [facility] Last Admin: 01/06/21 07:55 Dose: 50 mls/hr Documented by: Insulin Glargine (Insulin Glargine,Hum.Rec.Anlog 100 Unit/Ml 10 Ml Vial) 10 unit SUBCUT DAILY [facility] Last Admin: 01/06/21 09:18 Dose: 10 unit Documented by: Insulin Human Lispro (Insulin Lispro 100 Unit/Ml 3 Ml Vial) 0 unit SUBCUT QIDACHS [facility]; Protocol Last Admin: 01/06/21 07:48 Dose: 6 unit Documented by: Levothyroxine Sodium (Levothyroxine Sodium 88 Mcg Tablet) 88 mcg PO DAILY@629 [facility] Last Admin: 01/06/21 05:15 Dose: 88 mcg Documented by: Morphine Sulfate (Morphine Sulfate 4 Mg/Ml Cartridge) 3 mg IVPUSH Q3H PRN; Protocol PRN Reason: Pain, Severe (Pain Scale 7-10) Last Admin: 01/06/21 09:27 Dose: 3 mg Documented by: Omeprazole (Omeprazole 20 Mg Capsule.Dr) 20 mg PO DAILY@629 [facility] Last Admin: 01/06/21 05:15 Dose: 20 mg Documented by: Ondansetron HCl (Ondansetron Hcl 4 Mg/2 Ml Vial) 4 mg IVPUSH Q8H PRN PRN Reason: nausea Last Admin: 01/02/21 02:39 Dose: 4 mg Documented by: Oxycodone HCl (Oxycodone Hcl Immed Release 5 Mg Tablet) 5 mg PO Q4H PRN PRN Reason: Pain, Moderate (Pain Scale 4-6 Last Admin: 01/05/21 09:25 Dose: 5 mg Documented by: Pharmacy Consult (Consult Rx Perform Med Rec) 1 each MISCELLANE ONCE PRN PRN Reason: Consult order Prazosin HCl (Prazosin Hcl 1 Mg Capsule) 4 mg PO BEDTIME [facility]; Protocol Last Admin: 01/05/21 20:26 Dose: 4 mg Documented by: Sodium Chloride (0.9 % Sodium Chloride Flush 3 Ml Syringe) 3 ml IVFLUSH QSHIFT [facility] Last Admin: 01/06/21 07:49 Dose: Not Given Documented by: Venlafaxine HCl (Venlafaxine Hcl Er 150 Mg Cap.Er.24h) 150 mg PO DAILY [facility] Last Admin: 01/06/21 09:18 Dose: 150 mg Documented by: Vitamin D (Cholecalciferol (Vitamin D3) 25 Mcg Tablet) 50 mcg PO DAILY [facility] Last Admin: 01/06/21 09:17 Dose: 50 mcg Documented by: Time Spent With Patient Time: Total time spent is greater than 50% in coordination of care (as documented) at patient's floor/unit and/or counseling patient: Time with patient: 15 - 24 minutes Quality Stroke Does the patient have a stroke diagnosis?: No VTE Prior VTE?: No VTE Risk Level:: Medical - moderate - high VTE Device Contraindication: N/A - Device Ordered VTE Drug Contraindication: N/A - Med Ordered
[2021-01-06 11:29] LABS: Glucose, Whole Blood 284 mg/dL (60-115)
[2021-01-06 16:18] LABS: Glucose, Whole Blood 215 mg/dL (60-115)
[2021-01-06] MEDS: oxyCODONE HCl Immed Release 5 MG TABLET PO (19:28)
[2021-01-06 20:20] LABS: Glucose, Whole Blood 170 mg/dL (60-115)
[2021-01-06] MEDS: ARIPiprazole 20 MG TABLET PO (21:28)
[2021-01-06] MEDS: Prazosin HCL 1 MG CAPSULE 4 MG PO (21:29)
[2021-01-07] VITALS (8 sets, daily range): BP systolic 115–166; BP diastolic 63–74; PULSE 84–90; RESP 16–17; TEMP 36.2–37.6; O2SAT 95–100
[2021-01-07] MEDS: 0.9 % Sodium Chloride Flush 3 ML SYRINGE IVFLUSH (01:49)
[2021-01-07] MEDS: Piperacillin Sodium/Tazobactam 3.375 GM in 0.9 % Sodium Chloride 50 ML IV ×4 (03:34→22:04)
[2021-01-07] MEDS: Omeprazole 20 MG CAPSULE.DR PO (05:58)
[2021-01-07] MEDS: Levothyroxine Sodium 88 MCG TABLET PO (05:58)
[2021-01-07] MEDS: 0.9 % Sodium Chloride 1,000 ML 50 ML IVCONT (05:59)
[2021-01-07 07:32] LABS: Glucose, Whole Blood 191 mg/dL (60-115)
[2021-01-07] MEDS: Insulin Glargine,Hum.rec.anlog 100 UNIT/ML 10 ML VIAL 10 UNIT SUBCUT (07:51)
[2021-01-07] MEDS: Insulin Lispro 100 UNIT/ML 3 ML VIAL SUBCUT ×4 (07:52→22:03)
[2021-01-07] MEDS: carvediloL 6.25 MG TABLET PO ×2 (07:52→22:03)
[2021-01-07] MEDS: amLODIPine Besylate 10 MG TABLET PO (07:53)
[2021-01-07] MEDS: Venlafaxine HCl ER 150 MG CAP.ER.24H PO (07:53)
[2021-01-07] MEDS: Cholecalciferol (Vitamin D3) 25 MCG TABLET 50 MCG PO (07:53)
--- NOTE | 2021-01-07 08:39 | P.PNIM_ITS ---
Subjective Subjective Date of Service: 01/07/21 Interval History: Seen in f/u for medical issues of diabetes, HTN, CAD.. she's s/p cholecystectomy, still has some pain Review of Systems no fever no n/v has abdominal pain Physical Exam Vital Signs: Vital Signs: Last Vital Signs Temp 98.5 F 01/07/21 08:00 Pulse 90 01/07/21 08:00 Resp 17 01/07/21 08:00 BP 166/70 H 01/07/21 08:00 Pulse Ox 96 01/07/21 08:00 Body Mass Index 40.4 General: AO X 3, no acute distress Resp: CTA bilateral CVS: S1,S2,RRR GI: +BS, mild tenderness around incision, no distention, incision d/c/i, drain with serosanguineous fluid, less than yest Skin: No rash Neuro: motor grossly intact Psych: appropriate affect Objective Data Active Medications Albuterol Sulfate (Albuterol Sulfate (0.083%) 2.5 Mg/3 Ml Vial.Neb) 2.5 mg INHALE ONCE PRN PRN Reason: Wheezing Amlodipine Besylate (Amlodipine Besylate 10 Mg Tablet) 10 mg PO DAILY [facility]; Protocol Last Admin: 01/07/21 07:53 Dose: 10 mg Documented by: PATRICK Aripiprazole (Aripiprazole 20 Mg Tablet) 20 mg PO BEDTIME [facility] Last Admin: 01/06/21 21:28 Dose: 20 mg Documented by: MABEL Carvedilol (Carvedilol 6.25 Mg Tablet) 6.25 mg PO BID [facility]; Protocol Last Admin: 01/07/21 07:52 Dose: 6.25 mg Documented by: PATRICK Clonazepam (Clonazepam 0.5 Mg Tablet) 0.5 mg PO Q8H PRN PRN Reason: anxiety Piperacillin Sod/Tazobactam (Sod 3.375 gm/ Sodium Chloride) 50 mls @ 100 mls/hr IV Q6H [facility] Last Infusion: 01/07/21 04:59 Dose: 100 mls/hr Documented by: ZABRINA Sodium Chloride (Ns) 1,000 mls @ 50 mls/hr IVCONT .Q20H [facility] Last Admin: 01/07/21 05:59 Dose: 50 mls/hr Documented by: ZABRINA Insulin Glargine (Insulin Glargine,Hum.Rec.Anlog 100 Unit/Ml 10 Ml Vial) 10 unit SUBCUT DAILY [facility] Last Admin: 01/07/21 07:51 Dose: 10 unit Documented by: PATRICK Insulin Human Lispro (Insulin Lispro 100 Unit/Ml 3 Ml Vial) 0 unit SUBCUT QIDACHS [facility]; Protocol Last Admin: 01/07/21 07:52 Dose: 2 unit Documented by: PATRICK Levothyroxine Sodium (Levothyroxine Sodium 88 Mcg Tablet) 88 mcg PO DAILY@629 [facility] Last Admin: 01/07/21 05:58 Dose: 88 mcg Documented by: ZABRINA Omeprazole (Omeprazole 20 Mg Capsule.Dr) 20 mg PO DAILY@629 [facility] Last Admin: 01/07/21 05:58 Dose: 20 mg Documented by: ZABRINA Ondansetron HCl (Ondansetron Hcl 4 Mg/2 Ml Vial) 4 mg IVPUSH Q8H PRN PRN Reason: nausea Last Admin: 01/02/21 02:39 Dose: 4 mg Documented by: ROSIE Oxycodone HCl (Oxycodone Hcl Immed Release 5 Mg Tablet) 5 mg PO Q4H PRN PRN Reason: Pain, Moderate (Pain Scale 4-6 Last Admin: 01/06/21 19:28 Dose: 5 mg Documented by: MABEL Pharmacy Consult (Consult Rx Perform Med Rec) 1 each MISCELLANE ONCE PRN PRN Reason: Consult order Prazosin HCl (Prazosin Hcl 1 Mg Capsule) 4 mg PO BEDTIME [facility]; Protocol Last Admin: 01/06/21 21:29 Dose: 4 mg Documented by: MABEL Sodium Chloride (0.9 % Sodium Chloride Flush 3 Ml Syringe) 3 ml IVFLUSH QSHIFT [facility] Last Admin: 01/07/21 08:05 Dose: Not Given Documented by: PATRICK Non-Admin Reason: IV Running Venlafaxine HCl (Venlafaxine Hcl Er 150 Mg Cap.Er.24h) 150 mg PO DAILY [facility] Last Admin: 01/07/21 07:53 Dose: 150 mg Documented by: PATRICK Vitamin D (Cholecalciferol (Vitamin D3) 25 Mcg Tablet) 50 mcg PO DAILY [facility] Last Admin: 01/07/21 07:53 Dose: 50 mcg Documented by: PATRICK Labs CBC & Chem 7: 01/06/21 04:54 01/05/21 05:14 Labs: Laboratory Results - last 24 hr 01/06/21 01/06/21 01/06/21 11:25 16:13 20:15 POC Glucose 284 H 215 H 170 H 01/07/21 07:28 POC Glucose 191 H Microbiology Microbiology Results: Microbiology 01/01/21 21:45 Blood Culture - Final Blood - Venous Coag negative Staphylococcus 01/01/21 21:45 Blood Culture - Final Blood - Venous No growth after 5 days. Assessment and Plan (1) Diabetes: Status: Acute (2) Preop cardiovascular exam: Status: Acute (3) Cholecystitis: Status: Acute (4) Anemia: Status: Acute Assessment and Plan: 70/F with DM, HTN, HLD, hypothyroidism here with acute cholecystitits 1/Acute cholecystitis s/p CCY on 01/04 -post op management by surgery -continue Zosyn, once better oral Augmentin 2/Diabetes-uncontrolled--FBS of 191 today -continue SSI, continue Lantus at 10 3/ HTN, controlled--continue Coreg, Norvasc 4/ Hypothyroidism--continue Levothyroxine 5/ HLD--no statin d/t high LFTS 7/Anemia--mostly chronic with some acute blood loss since surgery, recheck lab today 8/h/o of CAD, hold statin d/t high LFTs,, plavix on hold d/t anemia, continue Coreg, lipitor compression stocking for DVT prophylaxis for now given that H/H is trending down Quality Stroke Does the patient have a stroke diagnosis?: No VTE Prior VTE?: No VTE Risk Level:: Medical - moderate - high VTE Device Contraindication: N/A - Device Ordered VTE Drug Contraindication: N/A - Med Ordered
[2021-01-07 08:57] LABS: Hematocrit 26.3 % (37-47); Hemoglobin 8.9 g/dl (12.0-16.0); Mean Corpuscular HGB Conc 33.8 g/dl (31.0-35.0); Mean Corpuscular Volume 82.7 fL (80-98); Mean Platelet Volume 10.2 fL (9.4-12.3); Platelet Count 339 X10*3/uL (160-400); Red Blood Count 3.18 X10*6/uL (4.20-5.50); Red Cell Distribution Width 14.9 % (11.0-16.0); White Blood Count 15.2 X10*3/uL (4.8-10.8)
[2021-01-07 09:15] LABS: Anion Gap 12 (12-20); Blood Urea Nitrogen 5 mg/dL (9-16); Calcium 7.9 mg/dL (8.4-10.2); Carbon Dioxide 24 mmol/L (22-29); Chloride 105 mmol/L (96-108); Creatinine Clr Calc Pharmacy 57.7; Estimated Glomerular Filt Rate > 60; Glucose Random 234 mg/dL (60-115); Potassium 3.1 mmol/L (3.3-5.1); Sodium 138 mmol/L (135-145)
--- NOTE | 2021-01-07 10:35 | PM.PNGS ---
Subjective Subjective Date of Service: 01/07/21 Interval history: feels much better today pain much improved PO intake better Physical Exam Vital Signs: Vital Signs: Last Vital Signs Temp 98.5 F 01/07/21 08:00 Pulse 90 01/07/21 08:00 Resp 17 01/07/21 08:00 BP 166/70 H 01/07/21 08:00 Pulse Ox 96 01/07/21 08:00 Body Mass Index 40.4 Const: General: comfortable and no acute distress Eyes: Sclerae: sclerae normal GI: Other: soft, incisions clean and dry, MARGUERITE with old blood Procedures Date of Service Date of Service: 01/07/21 Progress Note: A&P Assessment and plan (1) Cholecystitis: Status: Acute Assessment and Plan: S/P lap cholecystectomy looks well subjectively feels well Hg steady WBC still elevated , no fever plan to repeat WBC jaime - if stable, dc home plan dc MARGUERITE before discharge tomorrow Fall Risk Details Current Medications: Current Medications Albuterol Sulfate (Albuterol Sulfate (0.083%) 2.5 Mg/3 Ml Vial.Neb) 2.5 mg INHALE ONCE PRN PRN Reason: Wheezing Amlodipine Besylate (Amlodipine Besylate 10 Mg Tablet) 10 mg PO DAILY [facility]; Protocol Last Admin: 01/07/21 07:53 Dose: 10 mg Documented by: Aripiprazole (Aripiprazole 20 Mg Tablet) 20 mg PO BEDTIME [facility] Last Admin: 01/06/21 21:28 Dose: 20 mg Documented by: Carvedilol (Carvedilol 6.25 Mg Tablet) 6.25 mg PO BID [facility]; Protocol Last Admin: 01/07/21 07:52 Dose: 6.25 mg Documented by: Clonazepam (Clonazepam 0.5 Mg Tablet) 0.5 mg PO Q8H PRN PRN Reason: anxiety Piperacillin Sod/Tazobactam (Sod 3.375 gm/ Sodium Chloride) 50 mls @ 100 mls/hr IV Q6H [facility] Last Infusion: 01/07/21 04:59 Dose: Infused Documented by: Sodium Chloride (Ns) 1,000 mls @ 50 mls/hr IVCONT .Q20H [facility] Last Admin: 01/07/21 05:59 Dose: 50 mls/hr Documented by: Insulin Glargine (Insulin Glargine,Hum.Rec.Anlog 100 Unit/Ml 10 Ml Vial) 10 unit SUBCUT DAILY [facility] Last Admin: 01/07/21 07:51 Dose: 10 unit Documented by: Insulin Human Lispro (Insulin Lispro 100 Unit/Ml 3 Ml Vial) 0 unit SUBCUT QIDACHS [facility]; Protocol Last Admin: 01/07/21 07:52 Dose: 2 unit Documented by: Levothyroxine Sodium (Levothyroxine Sodium 88 Mcg Tablet) 88 mcg PO DAILY@629 [facility] Last Admin: 01/07/21 05:58 Dose: 88 mcg Documented by: Omeprazole (Omeprazole 20 Mg Capsule.) 20 mg PO DAILY@629 [facility] Last Admin: 01/07/21 05:58 Dose: 20 mg Documented by: Ondansetron HCl (Ondansetron Hcl 4 Mg/2 Ml Vial) 4 mg IVPUSH Q8H PRN PRN Reason: nausea Last Admin: 01/02/21 02:39 Dose: 4 mg Documented by: Oxycodone HCl (Oxycodone Hcl Immed Release 5 Mg Tablet) 5 mg PO Q4H PRN PRN Reason: Pain, Moderate (Pain Scale 4-6 Last Admin: 01/06/21 19:28 Dose: 5 mg Documented by: Pharmacy Consult (Consult Rx Perform Med Rec) 1 each MISCELLANE ONCE PRN PRN Reason: Consult order Prazosin HCl (Prazosin Hcl 1 Mg Capsule) 4 mg PO BEDTIME [facility]; Protocol Last Admin: 01/06/21 21:29 Dose: 4 mg Documented by: Sodium Chloride (0.9 % Sodium Chloride Flush 3 Ml Syringe) [facility] Last Admin: 01/07/21 08:05 Dose: Not Given Documented by: Venlafaxine HCl (Venlafaxine Hcl Er 150 Mg Cap.Er.24h) 150 mg PO DAILY [facility] Last Admin: 01/07/21 07:53 Dose: 150 mg Documented by: Vitamin D (Cholecalciferol (Vitamin D3) 25 Mcg Tablet) 50 mcg PO DAILY [facility] Last Admin: 01/07/21 07:53 Dose: 50 mcg Documented by: Time Spent With Patient Time: Total time spent is greater than 50% in coordination of care (as documented) at patient's floor/unit and/or counseling patient: Time with patient: 15 - 24 minutes Quality Stroke Does the patient have a stroke diagnosis?: No VTE Prior VTE?: No VTE Risk Level:: Medical - moderate - high VTE Device Contraindication: N/A - Device Ordered VTE Drug Contraindication: N/A - Med Ordered
[2021-01-07] MEDS: oxyCODONE HCl Immed Release 5 MG TABLET PO ×3 (10:46→22:18)
[2021-01-07 11:31] LABS: Glucose, Whole Blood 157 mg/dL (60-115)
[2021-01-07 16:16] LABS: Glucose, Whole Blood 192 mg/dL (60-115)
[2021-01-07 20:33] LABS: Glucose, Whole Blood 170 mg/dL (60-115)
[2021-01-07] MEDS: Prazosin HCL 1 MG CAPSULE 4 MG PO (22:03)
[2021-01-07] MEDS: ARIPiprazole 20 MG TABLET PO (22:03)
[2021-01-08] VITALS: BP 120/53; PULSE 75; RESP 14; TEMP 36.2; O2SAT 98
[2021-01-08] MEDS: 0.9 % Sodium Chloride 1,000 ML 50 ML IVCONT (02:09)
[2021-01-08 04:00] VITALS: BP 120/50; PULSE 81; RESP 16; TEMP 36.8; O2SAT 97
[2021-01-08] MEDS: Piperacillin Sodium/Tazobactam 3.375 GM in 0.9 % Sodium Chloride 50 ML IV (04:15)
[2021-01-08 05:10] LABS: Hematocrit 25.3 % (37-47); Hemoglobin 8.5 g/dl (12.0-16.0); Mean Corpuscular HGB Conc 33.6 g/dl (31.0-35.0); Mean Corpuscular Hemoglobin 27.2 pg (27.0-33.0); Mean Corpuscular Volume 80.8 fL (80-98); Mean Platelet Volume 9.7 fL (9.4-12.3); Platelet Count 372 X10*3/uL (160-400); Red Blood Count 3.13 X10*6/uL (4.20-5.50); Red Cell Distribution Width 14.5 % (11.0-16.0); White Blood Count 12.2 X10*3/uL (4.8-10.8)
[2021-01-08] MEDS: Levothyroxine Sodium 88 MCG TABLET PO (06:17)
[2021-01-08] MEDS: Omeprazole 20 MG CAPSULE.DR PO (06:17)
[2021-01-08 07:19] VITALS: BP 175/72; PULSE 84; RESP 16; TEMP 36.2; O2SAT 99
[2021-01-08 07:32] LABS: Glucose, Whole Blood 179 mg/dL (60-115)
[2021-01-08] MEDS: amLODIPine Besylate 10 MG TABLET PO (07:37)
[2021-01-08] MEDS: Cholecalciferol (Vitamin D3) 25 MCG TABLET 50 MCG PO (07:37)
[2021-01-08] MEDS: carvediloL 6.25 MG TABLET PO (07:37)
[2021-01-08] MEDS: Venlafaxine HCl ER 150 MG CAP.ER.24H PO (07:38)
[2021-01-08] MEDS: oxyCODONE HCl Immed Release 5 MG TABLET PO ×2 (07:38→11:35)
[2021-01-08] MEDS: Insulin Lispro 100 UNIT/ML 3 ML VIAL SUBCUT (07:38)
--- NOTE | 2021-01-08 07:47 | HO.PM.IMPN ---
Subjective Subjective Date of Service: 01/08/21 Interval History: Seen in f/u for medical issues of diabetes, HTN, CAD.. she feels better today Review of Systems no n/v has abdominal pain Physical Exam Vital Signs: Vital Signs: Last Vital Signs Temp 97.2 F 01/08/21 07:19 Pulse 84 01/08/21 07:19 Resp 16 01/08/21 07:19 BP 175/72 H 01/08/21 07:19 Pulse Ox 99 01/08/21 07:19 Body Mass Index 40.4 General: AO X 3, no acute distress Resp: CTA bilateral CVS: S1,S2,RRR GI: mild tenderness around incisions, drain with mild serosangeonous output Skin: No rash Neuro: motor grossly intact Psych: appropriate affect Objective Data Active Medications Albuterol Sulfate (Albuterol Sulfate (0.083%) 2.5 Mg/3 Ml Vial.Neb) 2.5 mg INHALE ONCE PRN PRN Reason: Wheezing Amlodipine Besylate (Amlodipine Besylate 10 Mg Tablet) 10 mg PO DAILY [facility]; Protocol Last Admin: 01/08/21 07:37 Dose: 10 mg Documented by: ALEXANDRIA Aripiprazole (Aripiprazole 20 Mg Tablet) 20 mg PO BEDTIME [facility] Last Admin: 01/07/21 22:03 Dose: 20 mg Documented by: ELIZABETH Carvedilol (Carvedilol 6.25 Mg Tablet) 6.25 mg PO BID [facility]; Protocol Last Admin: 01/08/21 07:37 Dose: 6.25 mg Documented by: ALEXANDRIA Piperacillin Sod/Tazobactam (Sod 3.375 gm/ Sodium Chloride) 50 mls @ 100 mls/hr IV Q6H [facility] Last Infusion: 01/08/21 04:57 Dose: 0 mls/hr Documented by: ELIZABETH Sodium Chloride (Ns) 1,000 mls @ 50 mls/hr IVCONT .Q20H [facility] Last Admin: 01/08/21 02:09 Dose: 50 mls/hr Documented by: ELIZABETH Insulin Glargine (Insulin Glargine,Hum.Rec.Anlog 100 Unit/Ml 10 Ml Vial) 10 unit SUBCUT DAILY [facility] Last Admin: 01/07/21 07:51 Dose: 10 unit Documented by: PATRICK Insulin Human Lispro (Insulin Lispro 100 Unit/Ml 3 Ml Vial) 0 unit SUBCUT QIDACHS [facility]; Protocol Last Admin: 01/08/21 07:38 Dose: 2 unit Documented by: ALEXANDRIA Levothyroxine Sodium (Levothyroxine Sodium 88 Mcg Tablet) 88 mcg PO DAILY@0630 [facility] Last Admin: 01/08/21 06:17 Dose: 88 mcg Documented by: ELIZABETH Omeprazole (Omeprazole 20 Mg Capsule.) 20 mg PO DAILY@30 [facility] Last Admin: 01/08/21 06:17 Dose: 20 mg Documented by: ELIZABETH Ondansetron HCl (Ondansetron Hcl 4 Mg/2 Ml Vial) 4 mg IVPUSH Q8H PRN PRN Reason: nausea Last Admin: 01/02/21 02:39 Dose: 4 mg Documented by: ROSIE Oxycodone HCl (Oxycodone Hcl Immed Release 5 Mg Tablet) 5 mg PO Q4H PRN PRN Reason: Pain, Moderate (Pain Scale 4-6 Last Admin: 01/08/21 07:38 Dose: 5 mg Documented by: ALEXANDRIA Pharmacy Consult (Consult Rx Perform Med Rec) 1 each MISCELLANE ONCE PRN PRN Reason: Consult order Prazosin HCl (Prazosin Hcl 1 Mg Capsule) 4 mg PO BEDTIME [facility]; Protocol Last Admin: 01/07/21 22:03 Dose: 4 mg Documented by: ELIZABETH Sodium Chloride (0.9 % Sodium Chloride Flush 3 Ml Syringe) 3 ml IVFLUSH [facility] Last Admin: 01/08/21 07:41 Dose: Not Given Documented by: ALEXANDRIA Non-Admin Reason: IV Running Venlafaxine HCl (Venlafaxine Hcl Er 150 Mg Cap.Er.24h) 150 mg PO DAILY [facility] Last Admin: 01/08/21 07:38 Dose: 150 mg Documented by: ALEXANDRIA Vitamin D (Cholecalciferol (Vitamin D3) 25 Mcg Tablet) 50 mcg PO DAILY [facility] Last Admin: 01/08/21 07:37 Dose: 50 mcg Documented by: ALEXANDRIA Labs CBC & Chem 7: 01/08/21 05:01 01/07/21 08:47 Labs: Laboratory Results - last 24 hr 01/04/21 01/07/2121 08:43 08:47 08:47 MCV 82.7 MCH 28.0 MCHC 33.8 RDW 14.9 Plt Count 339 D MPV 10.2 Absolute Nucleated RBC 0.000 Nucleated RBC % (auto) 0.0 Anion Gap 12 Estim Creat Clear Calc 57.7 Estimated GFR > 60 POC Glucose Random Glucose 234 H Calcium 7.9 L Blood Type A Positive Antibody Screen NEGATIVE Crossmatch See Detail 01/07/21 01/07/21 01/07/21 11:11 16:12 20:30 MCV MCH MCHC RDW Plt Count MPV Absolute Nucleated RBC Nucleated RBC % (auto) Anion Gap Estim Creat Clear Calc Estimated GFR POC Glucose 157 H 192 H 170 H Random Glucose Calcium Blood Type Antibody Screen Crossmatch 01/08/21 01/08/21 05:01 07:18 MCV 80.8 MCH 27.2 MCHC 33.6 RDW 14.5 Plt Count 372 MPV 9.7 Absolute Nucleated RBC 0.000 Nucleated RBC % (auto) 0.0 Anion Gap Estim Creat Clear Calc Estimated GFR POC Glucose 179 H Random Glucose Calcium Blood Type Antibody Screen Crossmatch Microbiology Microbiology Results: Microbiology 01/01/21 21:45 Blood Culture - Final Blood - Venous Coag negative Staphylococcus Assessment and Plan (1) Diabetes: Status: Acute (2) Preop cardiovascular exam: Status: Acute (3) Cholecystitis: Status: Acute (4) Anemia: Status: Acute Assessment and Plan: 70/F with DM, HTN, HLD, hypothyroidism here with acute cholecystitits 1/Acute cholecystitis s/p CCY on 01/04 -post op management by surgery -continue Zosyn, once better oral Augmentin 2/Diabetes-uncontrolled--FBS of 191 today -continue SSI, continue Lantus at 10 3/ HTN, controlled--continue Coreg, Norvasc 4/ Hypothyroidism--continue Levothyroxine 5/ HLD--no statin d/t high LFTS 7/Anemia--mostly chronic with some acute blood loss component, H/H still relatively stable 8/h/o of CAD, hold statin d/t high LFTs,, plavix on hold d/t anemia, continue Coreg, lipitor 9/ Coag neg staph bacteremia 1/2-contamination compression stocking for DVT prophylaxis for now given that H/H is trending down Quality Stroke Does the patient have a stroke diagnosis?: No VTE Prior VTE?: No VTE Risk Level:: Medical - moderate - high VTE Device Contraindication: N/A - Device Ordered VTE Drug Contraindication: N/A - Med Ordered
--- NOTE | 2021-01-08 09:29 | P.PNGS_ITS ---
Subjective Subjective Date of Service: 01/08/21 <Lashawn Gallegos PA-C - Last Filed: 01/08/21 09:32> 01/08/21 <Tay Pelayo MD - Last Filed: 01/08/21 12:57> Interval history: Feeling better. Appetite improved, tolerating diet. Pain controlled. Has [employer] at home. <Lashawn Gallegos PA-C - Last Filed: 01/08/21 09:32> Physical Exam Vital Signs: Vital Signs: Last Vital Signs Temp 97.2 F 01/08/21 07:19 Pulse 84 01/08/21 07:19 Resp 16 01/08/21 07:19 BP 175/72 H 01/08/21 07:19 Pulse Ox 99 01/08/21 07:19 Body Mass Index 40.4 <Lashawn Gallegos PA-C - Last Filed: 01/08/21 09:32> Const: General: healthy appearing, comfortable and no acute distress <Lashawn Gallegos PA-C - Last Filed: 01/08/21 09:32> Orientation/consciousness: patient oriented x3 <Lashawn Gallegos PA-C - Last Filed: 01/08/21 09:32> Resp: Effort & Inspection: normal respiratory effort <Lashawn Gallegos PA-C - Last Filed: 01/08/21 09:32> GI: Other: MARGUERITE DRAIN with scanty nonbilious output <Lashawn Gallegos PA-C - Last Filed: 01/08/21 09:32> Inspection: No distended and Yes incision (dressing c/d/i) <Lashawn Gallegos PA-C - Last Filed: 01/08/21 09:32> Skin: Other: normal color, warm and dry <Lashawn Gallegos PA-C - Last Filed: 01/08/21 09:32> General skin exam: no rashes or lesions noted <CARLOS Minaya Last Filed: 01/08/21 09:32> Neuro: General: patient oriented x3 <Lashawn Gallegos PA-C - Last Filed: 01/08/21 09:32> Procedures Date of Service Date of Service: 01/08/21 <Lashawn Gallegos PA-C - Last Filed: 01/08/21 09:32> Progress Note: A&P Assessment and plan (1) S/P laparoscopic cholecystectomy: Status: Acute <Lashawn Gallegos PA-C - Last Filed: 01/08/21 09:32> Assessment and Plan: Continues to feel better Good oral intake Hemoglobin steady WBC lower No fever Okay to DC home today - removed MARGUERITE prior to discharge Seen and examined - agree with MARK Gallegos <Tay Pelayo MD - Last Filed: 01/08/21 12:57> (2) Diabetes: Status: Acute <Lashawn Gallegos PA-C - Last Filed: 01/08/21 09:32> (3) Cholecystitis: Status: Acute <Lashawn Gallegos PA-C - Last Filed: 01/08/21 09:32> (4) Elevated liver function tests: Status: Acute <Lashawn Gallegos PA-C - Last Filed: 01/08/21 09:32> (5) Anemia: Status: Acute <Lashawn Gallegos PA-C - Last Filed: 01/08/21 09:32> (6) Atherosclerotic cardiovascular disease: Status: Acute <Lashawn Gallegos PA-C - Last Filed: 01/08/21 09:32> Assessment and Plan: 70 year old female admitted with acute cholecystitis now s/p lap CCY. She is doing well post op. VSS. Clinically appearing well. Abd exam benign, MARGUERITE output scanty. Had a persistent leukocytosis post op which is now improved and downtrending. Plan to dc MARGUERITE drain and discharge to home today. Patient comfortable with plan. F/u in office with DR. Pelayo in 2 weeks. <Lashawn Gallgeos PA-C - Last Filed: 01/08/21 09:32> Fall Risk Details Current Medications: Current Medications Albuterol Sulfate (Albuterol Sulfate (0.083%) 2.5 Mg/3 Ml Vial.Neb) 2.5 mg INHALE ONCE PRN PRN Reason: Wheezing Amlodipine Besylate (Amlodipine Besylate 10 Mg Tablet) 10 mg PO DAILY [facility]; Protocol Last Admin: 01/08/21 07:37 Dose: 10 mg Documented by: Aripiprazole (Aripiprazole 20 Mg Tablet) 20 mg PO BEDTIME [facility] Last Admin: 01/07/21 22:03 Dose: 20 mg Documented by: Carvedilol (Carvedilol 6.25 Mg Tablet) 6.25 mg PO BID [facility]; Protocol Last Admin: 01/08/21 07:37 Dose: 6.25 mg Documented by: Piperacillin Sod/Tazobactam (Sod 3.375 gm/ Sodium Chloride) 50 mls @ 100 mls/hr IV Q6H [facility] Last Infusion: 01/08/21 04:57 Dose: Infused Documented by: Sodium Chloride (Ns) 1,000 mls @ 50 mls/hr IVCONT .Q20H [facility] Last Admin: 01/08/21 02:09 Dose: 50 mls/hr Documented by: Insulin Glargine (Insulin Glargine,Hum.Rec.Anlog 100 Unit/Ml 10 Ml Vial) 10 unit SUBCUT DAILY [facility] Last Admin: 01/07/21 07:51 Dose: 10 unit Documented by: Insulin Human Lispro (Insulin Lispro 100 Unit/Ml 3 Ml Vial) 0 unit SUBCUT QIDACHS [facility]; Protocol Last Admin: 01/08/21 07:38 Dose: 2 unit Documented by: Levothyroxine Sodium (Levothyroxine Sodium 88 Mcg Tablet) 88 mcg PO DAILY@0630 [facility] Last Admin: 01/08/21 06:17 Dose: 88 mcg Documented by: Omeprazole (Omeprazole 20 Mg Capsule.) 20 mg PO DAILY@0630 [facility] Last Admin: 01/08/21 06:17 Dose: 20 mg Documented by: Ondansetron HCl (Ondansetron Hcl 4 Mg/2 Ml Vial) 4 mg IVPUSH Q8H PRN PRN Reason: nausea Last Admin: 01/02/21 02:39 Dose: 4 mg Documented by: Oxycodone HCl (Oxycodone Hcl Immed Release 5 Mg Tablet) 5 mg PO Q4H PRN PRN Reason: Pain, Moderate (Pain Scale 4-6 Last Admin: 01/08/21 07:38 Dose: 5 mg Documented by: Pharmacy Consult (Consult Rx Perform Med Rec) 1 each MISCELLANE ONCE PRN PRN Reason: Consult order Prazosin HCl (Prazosin Hcl 1 Mg Capsule) 4 mg PO BEDTIME [facility]; Protocol Last Admin: 01/07/21 22:03 Dose: 4 mg Documented by: Sodium Chloride (0.9 % Sodium Chloride Flush 3 Ml Syringe) 3 ml IVFLUSH QSHIFT [facility] Last Admin: 01/08/21 07:41 Dose: Not Given Documented by: Venlafaxine HCl (Venlafaxine Hcl Er 150 Mg Cap.Er.24h) 150 mg PO DAILY [facility] Last Admin: 01/08/21 07:38 Dose: 150 mg Documented by: Vitamin D (Cholecalciferol (Vitamin D3) 25 Mcg Tablet) 50 mcg PO DAILY [facility] Last Admin: 01/08/21 07:37 Dose: 50 mcg Documented by: <Lashawn Gallgeos PA-C - Last Filed: 01/08/21 09:32> Time Spent With Patient Time: Total time spent is greater than 50% in coordination of care (as documented) at patient's floor/unit and/or counseling patient: <Lashawn Gallegos PA-C - Last Filed: 01/08/21 09:32> Time with patient: 15 - 24 minutes <Lashawn Gallegos PA-C - Last Filed: 01/08/21 09:32> Quality Stroke Does the patient have a stroke diagnosis?: No <Lashawn Gallegos PA-C - Last Filed: 01/08/21 09:32> VTE Prior VTE?: No <Lashawn Gallegos PA-C - Last Filed: 01/08/21 09:32> VTE Risk Level:: Medical - moderate - high <CARLOS Minaya Last Filed: 01/08/21 09:32> VTE Device Contraindication: N/A - Device Ordered <Lashawn Gallegos PA-C - Last Filed: 01/08/21 09:32> VTE Drug Contraindication: N/A - Med Ordered <Lashawn Gallegos PA-C - Last Filed: 01/08/21 09:32>
[2021-01-08] MEDS: Furosemide 20 MG TABLET PO (10:16)
[2021-01-08] MEDS: Insulin Glargine,Hum.rec.anlog 100 UNIT/ML 10 ML VIAL 10 UNIT SUBCUT (10:16)
--- NOTE | 2021-01-08 11:26 | MHC.CM.PN ---
IMM 01/08/2021, pt discharging today w/new [facility] for care home, pt's son for [place].
--- NOTE | 2021-01-08 12:06 | W.MHC.F2F ---
Service Date Service Date: 01/08/21 Encounter Date of encounter: 01/08/21 Reasons for Services Signs and symptoms assessed: abdominal pain and tenderness; PO intake; MARGUERITE output Reason for penitentiary: wound care and postoperative assessment and/or care MD Overseeing Care: Tay Pelayo Homebound: Leaving the home is medically contraindicated at this time without the asist of a device and/or another person due the listed conditions above and below. Reason homebound: weakness related to hospital stay and unable to drive Homebound supporting statement: 70 year old female with PMH of CAD, NSTEMI, diabetes mellitus admitted with acute cholecystitis s/p lap CCY. She is weak secondary to the extended hospital stay and will need VNA services. Certification: Based on the above findings, I certify that this patient is confined to the home and needs intermittent penitentiary care, physical therapy and/or speech therapy, or continues to need occupational therapy. The patient is under my care, and I have initiated the establishment of the plan of care. The patient will be followed by a physician who will periodically review the plan of care.
--- NOTE | 2021-01-09 12:06 | P.DS_ITS ---
DS: Providers Provider Date of Service: 01/08/21 Date of admission: 01/02/21 01:03 Primary care physician: Pascual Darnell MD Consults: 01/02/21 01:16 Consult to Hospitalist Routine Consulting Provider: Hospitalist Reason For Exam: HTN, DM 01/02/21 09:26 Consult to Cardiology Routine Consulting Provider: Smooth Smith Reason for consultation: hx of CT, CAD DS: Diagnosis Discharge Diagnosis (1) S/P laparoscopic cholecystectomy: Status: Acute (2) Diabetes: Status: Acute (3) Cholecystitis: Status: Acute (4) Elevated liver function tests: Status: Acute (5) Anemia: Status: Acute (6) Atherosclerotic cardiovascular disease: Status: Acute DS: Summary Hospital Course Hospital Course: BRIEF HPI: Brandie Santana is a 70 year old female with PMH including chronic multifactorial anemia, coronary artery disease with hx of NSTEMI and thryoid disease who presented to the ED earlier tonight because of abdominal pain. She says she has had this for about 3-4 days now. She describes this as mostly in the right upper quadrant. She denies nausea or vomiting. Work up in the ED showed a leukocytosis of 21.[address] and US imaging with GB wall thickening c/w cholecystitis. HOSPITAL COURSE: She was admitted to the surgical service for further treatment of acute cholecystitis. She did have higher perioperative risks given her age and multiple medical comorbidities which was discussed with her. She wanted to trial nonoperative treatment and was started on IV zosyn, IVF. She understood that she may ultimately end up needing cholecystectomy if she does not improve. A cardiology consult was obtained for cardiac clearance and hospitalist consult for management of her medical comorbidities. She was on Plavix which was held for possible surgical intervention. Her leukocytosis began to improve however plateaued. She eventually decided that she wanted to proceed with cholecystectomy in view of her persistent pain. She was deemed to be at intermediate risk by cardiology. She was therefore added onto the OR schedule for laparoscopic cholecystectomy possible open.? On 01/04/21, a laparoscopic cholecystectomy, lysis of adhesions surrounding the liver was performed by Dr. Pelayo without complication. The gallbladder was found to by gangrenous with hydrops and purulent contents. A MARGUERITE drain was placed intraoperatively. The patient tolerated the procedure well, completed routine recovery in PACU and was admitted back to the medical/surgical floor for observation. She had an uncomplicated but slow recovery course. She remained inpatient for pain control and while her PO intake increased. She was clinically appearing well however her WBC count began to trend up post operatively. It eventually began to downtrend and almost normalized. Her MARGUERITE output became more serous appearing and was scanty and was therefore removed. On the day of discharge, she was tolerating a solid diet without N/V, her abdominal pain was well controlled and she was OOB without difficulty. her abdomen was benign with appropriate post op tenderness and clean incisions. She was clinically appearing well and stable for discharge. She was discharged to home with VNA services on 01/08/21. Status at Discharge Overall status at discharge: patient is progressing back to baseline Time Spent with Patient Time attestation: Total time spent providing and/or coordinating discharge services: Discharge coordination time: Greater than 30 minutes Quality: Stroke Does the patient have a stroke diagnosis?: No Physical Exam Vital Signs: Vital Signs: Last Vital Signs Temp 97.2 F 01/08/21 07:19 Pulse 84 01/08/21 07:19 Resp 16 01/08/21 07:19 BP 175/72 H 01/08/21 07:19 Pulse Ox 99 01/08/21 07:19 Body Mass Index 40.4 Const: General: healthy appearing, comfortable, no acute distress and alert Orientation/consciousness: patient oriented x3 Eyes: Sclerae: sclerae normal Resp: Effort & Inspection: normal respiratory effort GI: Inspection: No distended and Yes incision (clean) Palpation (GI): Soft to palpation, Tenderness to palpation present (GI) (mild, incisional), no gua rding and not rigid Percussion: Yes normal to percussion Skin: General skin exam: no rashes or lesions noted Neuro: General: patient oriented x3 Extrem: General: Yes no clubbing, cyanosis or edema DS: Data Data Completed and Pending Completed studies during hospitalization [Text1]: 01/04/21 11:54 Surgical [PTH] Routine Gallbladder, cholecystectomy:? Gangrenous cholecystitis; cholelithiasis. Discharge Plan Discharge Patient Disposition: Home Health Service Discharge Diagnosis: acute cholecystitis Referrals: [facility] [Outside] - 1 Day ([facility], please call above number if you do not hear from a nurse by noon on 01/08/2021.) Pascual Darnell MD [Primary Care Provider] - 1 Week Tay Pelayo MD [Physician] - 2 Weeks Discharge Medications: New oxycodone 5 mg tablet 5 mg PO Q4H PRN (Reason: pain (scale score 7-10)) Qty: 24 RF: 0 Continued (DME) insulin syringe-needle U-100 [BD Insulin Syringe Ultra-Fine] 0.3 mL 31 gauge x 5/16 syringe See Rx Instructions .ROUTE .MEDSUPPLY Qty: 100 RF: 0 (DME) Dexcom G6 Sensor Device See Rx Instructions .ROUTE .MEDSUPPLY Qty: 3 RF: 11 clopidogrel 75 mg tablet 75 mg PO QAM Qty: 30 RF: 5 amlodipine 10 mg tablet 10 mg PO DAILY 30 Days Qty: 30 RF: 5 (DME) FreeStyle Lite Strips Strip See Rx Instructions .ROUTE .MEDSUPPLY Qty: 200 RF: 6 carvedilol 6.25 mg tablet 6.25 mg PO BID 90 Days Qty: 180 RF: 4 furosemide 20 mg tablet 20 mg PO QAM Qty: 90 RF: 3 cholecalciferol (vitamin D3) 50 mcg (2,000 unit) capsule 50 mcg PO DAILY 30 Days Qty: 30 RF: 5 sucralfate 1 gram tablet 1 tab PO BID RF: 0 clonazepam 0.5 mg tablet 1 tab PO Q8H PRN (Reason: anxiety) RF: 0 Fiasp FlexTouch U-100 Insulin 100 unit/mL (3 mL) insulin pen 2 - 15 unit subcut QID RF: 0 venlafaxine [Effexor XR] 150 mg capsule,extended release 24hr 150 mg PO DAILY RF: 0 atorvastatin 80 mg tablet 80 mg PO DAILY 30 Days Qty: 30 RF: 5 aripiprazole 20 mg tablet 20 mg PO BEDTIME RF: 0 (DME) blood sugar diagnostic Strip See Rx Instructions ea Not Applicable .MEDSUPPLY Qty: 10 RF: 0 gabapentin 100 mg capsule 100 mg PO BID RF: 0 hydroxyzine HCl 10 mg tablet 10 mg PO DAILY RF: 0 prazosin 2 mg capsule 4 mg PO BEDTIME RF: 0 calcium citrate 200 mg (950 mg) tablet 400 mg PO BID RF: 0 diclofenac sodium 75 mg tablet,delayed release (DR/EC) 75 mg PO BID RF: 0 esomeprazole magnesium 40 mg capsule,delayed release(DR/EC) 40 mg PO DAILY RF: 0 Tresiba FlexTouch U-100 100 unit/mL (3 mL) insulin pen 12 unit subcut DAILY 30 Days Qty: 15 RF: 4 Tirosint 88 mcg capsule 88 mcg PO DAILY 30 Days Qty: 30 RF: 8 (DME) pen needle, diabetic [BD Cherelle 2nd Gen Pen Needle] 32 gauge x 5/32 needle See Rx Instructions .MEDSUPPLY Qty: 200 RF: 7 Discharge Orders: Discharge Order (Routine); Ordered 01/08/21 Ordered By: Lashawn Gallegos Diet: diabetic diet Activity on Discharge: No heavy lifting Stand Alone Forms: Patient Portal Discharge page Activity Restrictions/Additional Instructions: If the incision area is tender, you may apply an ice pack for short intervals (No more than 20 minutes on, followed by at least 20 minutes off). Do not apply heat. Do not use creams, lotions, or topical antibiotics unless instructed to do so by your surgeon. These can cause infection or allergic reaction. Ok to shower 24 hours after your surgery. Remove bandaids in 2 days and replace. You have steri strips (small white cloth strips) covering your incision- these will fall off ~1 week. Follow up in office with Dr. Pelayo in 2 weeks. ([phone]) No heavy lifting (>10-20lbs)! Call Your Doctor If: -Your temperature exceeds 101.5? F -You experience excessive pain or swelling -You have an unexpected reaction to medication -You have excessive bleeding -You experience continued vomiting/nausea -Your incision begins to separate -Your incision shows signs of infection such as increased redness, swelling, excessive pain, drainage (light blood or clear fluid is normal) or heat Care Plan Goals: Return to baseline health and gradual return to activity following recovery period. Health Concerns: diabetes mellitus, CAD, hx of NSTEMI s/p lap CCY Plan of Treatment: Pain control Assessment: Doing well post op, stable for discharge to home. Discharge Date/Time: 01/08/21 12:38
--- OUTSIDE RECORDS SUMMARY | 2021-01-18 08:34 | XMS_ITS ---
:1950 Author Name Pascual Daly Care Team Providers Name Role Phone Vidhya BRIAN Joanie Unavailable Unavailable Allergies, Adverse Reactions, Alerts Substance Reaction Status Criticality ZOLPIDEM TARTRATE Active No Information lorazepam Active No Information tramadol Active No Information celecoxib nausea Active No Information Medications Medication Instructions Dosage Effective Status Comments Dates (start - stop) Carafate 1 gram take 1 tablet by 1 G - Active tablet oral route 2 times every day on an empty stomach 1 hour before meals and at bedtime Abilify 20 mg tablet take 1 tablet by 20 MG - Active oral route every day clonazepam 0.5 mg take 1 tablet by 1 tablet - Active New dosing and tablet oral route every instruc tions 8 hours as needed 09/05/19. for anxiety [place] check ed 11/23/2020 Effexor XR 150 mg take 1 capsule by - Active capsule,extended oral route every release day along with Effexor XR 75 mg daily prazosin 2 mg capsule take 2 capsule by 4 MG - Acti ve oral route every bedtime gabapentin 100 mg take 1 capsule by 100 MG - Active capsule oral route 2 times every day hydroxyzine HCl 10 mg take 1 Tablet by 1 Tablet - Activ e Hebrew tablet Oral route every instruc tions 8 hours as needed please for anxiety amoxicillin 500 mg take 1 capsule by 500 MG - Active capsule oral route every 8 hours Tylenol 8 Hour 650 mg take 2 tablet by 1300 MG - Activ e tablet,extended oral route every release 8 hours as needed swallowing whole with water. Do not break, crush, dissolve and/or chew. Lipitor 80 mg tablet take 1 tablet by 80 MG - Active oral route every day Miralax 17 gram oral take 1 packet by 17 G - Active powder packet oral route every day mixed with 8 oz. water, juice, soda, coffee or tea Tylenol Extra take 1 tablet - Active Strength 500 mg (500MG) by oral tablet route every 6 hours as needed amlodipine 10 mg take 1 tablet by 10 MG - Active tablet oral route every day albuterol sulfate HFA inhale 2 puff by - Activ e 90 mcg/actuation inhalation route aerosol inhaler every 4 - 6 hours as needed Glucagon Emergency to use for - Active Kit (human-recomb) 1 hypoglycemia if mg solution for pt unconcious injection glucose 4 gram when blood sugar - Active chewable tablet <70, chew 4 tablets as directed, repeat as necessary in 15 minutes as needed FreeStyle Lancets 28 test blood sugars - Activ e gauge 4 times a day Novolog 100 unit/mL via insulin pump - Active subcutaneous solution FreeStyle Lite Strips USE 1 Each by 1 Each - Activ e DIRECTED route 4 times every day carvedilol 6.25 mg take 1 tablet by 6.25 MG - Active tablet oral route 2 times every day with food potassium chloride ER take 1 tablet by 8 MEQ - Active 8 mEq tablet,extended oral route 2 release times every day with food Tirosint 88 mcg take 1 capsule by 88 MCG - Active capsule oral route every day calcium citrate 250 take 2 tablets - Active mg tablet BID with food furosemide 20 mg take 1 tablet by - Active tablet oral route every 4 days cholecalciferol take 1 capsule po - Active (vitamin D3) 2,000 once daily unit capsule clopidogrel 75 mg take 1 tablet by 75 MG - Active tablet oral route every day Problems Condition Type Effective Dates Clinical Status Comments (start - stop) Concussion with no loss Problem (finding) - Active of consciousness Cervical plexopathy Problem (finding) - Active History of bypass of Problem (finding) - Active stomach Benign hypertension Problem (finding) - Active Recurrent falls Problem (finding) - Active Disorder of hair AND/OR Problem (finding) - Active hair follicle Anxiety state Problem (finding) - Active Fibromyositis Problem (finding) - Active Type II diabetes Problem (finding) - Active mellitus uncontrolled Iron deficiency anemia Problem (finding) - Active Eczema Problem (finding) - Active Depressive disorder Problem (finding) - Active Hypothyroidism Problem (finding) - Active Nutritional anemia Problem (finding) - Active Hyperlipidemia Problem (finding) - Active Advance Directives Directive Yes / No Effective Date File Name No Information Encounters Encounter Practice Location Reason(s) For Diagnoses Date Provider Pro viders Description Visit Copied on Encounter [facility] Vomiting No [facility] (chief Information Joanie. 230 Provider : Center, complaint) 1 [facility], 230 [facility], 230 [place], [place], [facility], [id number], [place], [place], [place], [id number] tel:+ [phone]. , [place] tel: tel: [phone] [facility] BH-RV (chief No [facility] Telemedicine complaint)Tel Information Titi. 2 30 Center, emedicine 1 [facility], 230 Visit (chief [facility], complaint) [place], [id number], [place], [place]. [id number] tel: , [place] tel: [phone] [facility] No Daniele Health Information Amy. [place], 1 230 [facility] [address], [facility], [place], [place], [place], [place], [id number], [id number] [place]. , [place] tel:+ tel: [phone] [facility] No [facility] Information [facility], 1 [employer] [facility], 230 230 [facility], [place], [place], [address], [id number] [place]. , [place] tel: tel: [phone] [facility] No [facility] Information ta Ammy. Center, 1 [address] [employer], [place], [place], [address], [place], [place]. [id number] tel: , [place] tel: [phone] [facility] No [facility] Information Nadia. Center, 1 [address] [employer], [place], [place], [address], [place], [place]. [id number] tel: , [place] tel: [phone] [facility] No [facility] Information [facility], 1 [employer] [address], [place], [place], [address], [id number] [place]. , [place] tel: tel: [phone] [facility] No [facility] Information [facility], 1 [employer] [address], [place], [place], [address], [id number] [place]. , [place] tel: tel: [phone] [facility] Nausea (chief No [facility] Telemedicine complaint)Tel Information [facility], evisit (chief 0 [employer] 230 complaint) [address], [place], [place], [address], [id number] [place]. , [place] tel: tel: [phone] [facility] No [place] [facility] Information Christian. 230 Center, 0 [employer] 230 [place], [facility] [place], [address], [place], [place], tel: [phone] , [place] tel: [phone] [facility] No [facility] Health Information [facility] Center, 0 [employer] [address], [place], [place], [address], [id number] [place]. , [place] tel: tel: [phone] [facility] No [facility] Health Information [place] Provider: Center, 9 Pascual. [employer] [address], [address], [place], [place], [place], [address], [place], [address]. [id number] [place]. tel: , [place] tel: tel: [phone] [facility] No Provider Health Information Outside. Center, 9 [address] [employer] [address], [place], [place], [address], [place], [place]. [id number] tel: , [place] tel: [phone] [facility] No [facility] Information [facility] Center, 9 [employer] [address], [place], [place], [address], [phone] [place]. , [place] tel: tel: [phone] [facility] diabetes No [employer] (chief Information [facility] Center, complaint)hyp 9 [place], [address], (chief St, [place], complaint)nia [place], [place], [place] ([place], [address], [id number] complaint) [place]. , [place] tel: tel: [phone] [facility] MTM Visit No [facility] (chief Information [place] Provider: Center, complaint) 9 [employer] [address], [place], 230 [place], [place], [place], [address], [place], [id number] [place], [address]. , [place] tel: tel: tel: [phone] [facility] MTM visit No [facility] (chief Information Tati. Provider: Center, complaint) 9 230 [employer], [address], [place], [address], [place], [address] [place], [place], [address], [place], [id number], [place], [id number] [place], [address]. , [place] tel: tel: tel:[phone] [facility] diabetes No [facility] (chief Information [facility], complaint)hyp 8 [place], [address], (chief [address], [place], complaint)hyp [place], [place], [place], [address], [id number] (chief [place]. , [place] complaint)ER tel: tel: f/u (chief [phone] complaint) [facility] Med No [facility] Reconciliatio Information [facility] er: Center, n (chief 8 So1, 230 complaint) 230 [address] [place], [address], [address] [place], [place], [place], [address], [place], [id number] [place], [address]. , [place] tel: tel: tel: [phone] [facility] NSTEMI (chief No [facility] complaint)frank Information [place] antony Melendez (chief 7 [place], 230 complaint)Pha [address], [address], [place], ([place], [place], [address], [phone] [place]. , [place] tel: tel: [phone] [facility] diabetes No [facility] (chief Information [facility], complaint)hyp 7 [employer] [address], (chief [address], [place], complaint)hyp [place], [place], [address], [id number] (chief [place]. , [place] complaint) tel: tel: [phone] [facility] diabetes No [facility] (chief Information [facility], complaint)hyp 6 [place], [address], (chief [address], [place], complaint)hyp [place], [place], [address], [id number] (chief [place]. , [place] complaint) tel: tel: [phone] [facility] No Dec-2 [facility] Information [facility], 6 [employer] [address], [place], [place], [address], [id number] [place]. , [place] tel: tel: [phone] [facility] No 0 [facility] Information [facility], 6 [employer] [address], [place], [place], [address], [id number] [place]. , [place] tel: tel: [phone] [facility] rv dm (chief No [facility] complaint)frank Information [facility] er: antony Melendez (chief 6 [employer] 230 complaint) [address], [place], 230 [place], [place], [place], [address], [place], [id number] [place], [address]. , [place] tel:+ tel: tel: [phone] [facility] diabetes No [facility] (chief Information [facility], complaint)hyp 5 [employer] [address], (chief [address], [place], complaint) [place], [address], [id number] [place]. , [place] tel: tel: [phone] [facility] No Travel No [facility] (chief Information [place] Provider: Center, complaint) 5 [employer], 230 230 [address] [facility] [place], [address], St, 230 [address] [place], [place], [place], [place], [address], [place], [id number] [place], [address]. , [place] tel: tel: tel: [phone] [facility] diabetes No [facility] (chief Information 2 [facility], complaint)hyp 4 [place], [address], (chief [address], [place], complaint)hyp [place], [place], [address], [id number] (chief [place]. , [place] complaint)The tel: tel: patient has [phone] not traveled. (chief complaint) [facility] f/u (chief No [facility] complaint)dep Information Joanie. 230 Center, ression 4 Maple St[employer] Inc[employer] 230 (chief [place], [address] [place], [place], [address], [place], [place], tel: [phone] , [place] tel: [phone] [facility] Family chronic No [facility] Practice conditions Information 9 Joanie. 230 Center, (chief [address] 230 complaint) [place], [address], [place], [place]. [place], tel:[phone] , [place] tel:+ [phone] [facility] No [facility] Health Information [place]. 230 Center, 3 [employer] [facility] [facility] [employer] 230 [place], [place], [address], [place], [place]. [place], tel:[phone] , [place] tel:+ [phone] [facility] chronic No [facility] Practice conditions Information 4 Joanie. 230 [place], (chief 3 [facility], Inc[employer] 230 complaint)dep [place], [facility], [facility] [address], [place], (chief [place]. [place], complaint)thomas tel:[phone] n (chief , [place] complaint) tel:+ [phone] [facility] Adult No [facility] Internal Information Fior Montejo. [place], Medicine 2 [address] [place] [employer] [address], [facility], [place], [place], [address], [place], [place]. [id number] tel:[phone] , [place] tel:+ [phone] [facility] No No Health Health Information Information [place], [place] 1 [facility] 230 [facility], [place], [place], [id number] , [place] tel:+ [phone] Family History Family Member Type Diagnosis Age At Onset No Information Immunizations Vaccine Date Status Comments COVID-19 Moderna administered Source: Other R egistry COVID-19 Moderna administered Source: Other R egistry Flu-IIV4, p-free High Dose administered [facility] e: Other Registry Flu 2018 administered Source: New Immu nization Record RZV (Shingrix) administered Source: Other Re gistry Shingrix administered Note: [facility] [employer] [place] ; Source: Other Provider Flu-IIV4, p-free administered Source: Other R egistry Influenza, high dose, administered Note: infl uenza vis given ; injectable, split virus, Source: New Immunization preservative free, Fluzone Recor d High-Dose 0254-9143 Influenza, injectable, administered Note: All ergies verified. quadrivalent, split virus, 3 Crystal erated well, no adverse years or older Fluzone Quad reac tion noted. VIS given ; Source: New Immu nization Record Pneumococcal conjugate PCV 13 administered No te: Pt denied any allergies ; Source: New Im munization Record Influenza, split virus, administered Note: Pt tolerated well, 15 injectable, quadrivalent, 3 rell te wait post injection years or older Fluzone Quad advi sed. ; Source: New Immunization Rec ord Zoster administered Note: VIS GIVEN TO PATIENT. ; Source: New Immu nization Record Influenza, seasonal, administered Note: VIS g iven to pt. ; injectable Source: New Immu nization Record Pneumo (2 yrs or older)(PPV) administered Not e: tolerated well no adverse reaction noted. ; Source: New Immu nization Record Tdap (Boostrix r) administered Note: tolerate d well no adverse reaction noted. ; Source: New Immu nization Record Flu (split) (3 yrs or older) administered Not e: tolerated well no adverse reaction noted. ; Source: New Immu nization Record Flu (split) (3 yrs or older) administered Ellen rce: New Immunization Record flu (split) (3 yrs or older) administered Ellen rce: New Immunization Record Td (7 yrs or older) administered Source: New Immunization Record pneumo (2 yrs or older) administered Source: New Immunization (PPV23) Record MMR administered Source: New Immu nization Record Td (7 yrs or older) administered Source: New Immunization Record Payers Payer name Insurance type Covered republican ID Authorization(s ) [facility] VTO CI [id number] [facility] Adult [id number] [facility] Medicaid [id number] [place] Medicaid CI [id number] [employer] Plan CI [id number] [facility] CI [id number] Social History Type Description Quantity Date Captured Comments Sex Female Smoking Status No Information Chief Complaint And Reason For Visit Most recent encounter only, dated '12/05/2020 11:45'. Vomiting (chief complaint). Description: The location is diffuse. The reports radiation to the back and shoulder. The quality of the pain is achy. Associated symptoms include back pain, diarrhea, myalgia and vomiting. Pertinent negatives include bloating, blood in stool, dyspnea, fever and rash. Reason For Referral Reason For Referral Plan Of Treatment Date Type Action Status Appointment Brandie Sanatna BOOKED Appointment Brandie Santana BOOKED Appointment Brandie Santana BOOKED History Of Present Illness Encounter Date Complaint History Of Present I llness Vomiting (comments) Pt reporting that sh daily has had body aches, vomiting x 4- 5 times, loose stools, and a little nasal congestion for 5 days. She took some Mylanta but the symptoms remaine dPt is Type 1 diabetic and reports AM BG was 300 something this AM pr ior to insulin dosing. She has Hx o f gastric bypass and reports she has an inflamed liver. She denies smoking or et oh use.Pt did receive COVID vaccin e Vomiting The location is diff use. The reports radiation to the ba ck and shoulder. The quality of the pain is achy. Associated symptoms include nia k pain, diarrhea, myalgia and vomiting . Pertinent negatives include bl oating, blood in stool, dyspnea, feve r and rash. BRISSA-CORWIN Patient's last [facility] televisit was on 10/24. She had not been able to get the new Rx for Clonazepam 0.5 mg TI D (increased frequency but decrea sed total daily dose) and new Rx was sent. She was also given new Rx for Pra zosin 2 mg 2 at bedtime for nightmar es. Other meds continued. She says she has gotten all the medications and is taking as directed. Thinks are working pretty well. Dealin g with some family problems which makes her feel sad. Continues with fran escobarsammy. Recently saw Neurologist and says he recommended that she increase her ant idepressant (but did not make changes him self). Telemedicine Visit A complete assessmen t and plan is detailed in the note , all of which were conducted remotely u [employer] technology by phone. Patient gave verbal consent to be seen i n this manner, and identity was verball y confirmed with 2 identifiers at the s tart of the visit. Patient is in a conf idential location during visit. Provid er was located in an Ambulatory exam room /outside the office at a secure location during the visit. Nausea Onset: 4 days ago. It occurs persistently. Maxim xt: associated with food. Associated sy mptoms include decreased appetite a nd vomiting. Pertinent negatives include abdominal pain. Televisit This patient was lis ntified as meeting criteria for a prima ry care Televisit by phone rather than an in person due to public health concer ns around COVID - 19. Patient gave pedrito bal consent to be seen in this manner. A complete assessment and plan is detailed in the note, all of which w ere conducted remotely using [employer] technology; video was offered but orin ent was unable to support video techno logy. Patient identity was verball y confirmed with 2 identifiers at the s tart of the visit. Patient was located home during the visit. Provider was located in an exam roomThe patient zohaib es fever, anosmia, dysgeusia, sore thro at, cough, or dyspnea; denies cont act with sick people; and is pract icing appropriate social distancing. I reviewed and reinforced these jennifer sures including careful handwashing and the new CDC recommendation for m asks. I reviewed the reasons for the pt go to ED vs. calling our triage ben fareed to get home care advice or be seen in [facility] clinic for COVID-19 symptoms. back pain Onset: 1 month ago. Severity level is 5. The problem is worse cedric. It occurs persistently. Locati on of pain is lower back. Pain is radiat ed to the left thigh and right thigh.The patient describes the pain as an ache. Symptoms are aggravated by bendin g, lifting and walking. Symptoms ar e relieved by rest. hypertension Comorbid conditions include chronic kidney disease and d iabetes mellitus. It is currently stab le. Risk factors include age over age 60, depression, inactive lifestyle a nd obesity. There are no associated sy mptoms. diabetes The problem is stabl e. Risk factors include: /[place], over age 4545 years old and sedentary lifestyle. Managing with: Insulin. Comorbidity: Hyperte nsion. There are no associated symptoms. MTM Visit Pharmacy ConsultPhar jose r Recommendations: Si nce patient receives monthly medboxes, pl ease contact medbox pharmacist with any medication changes (initiations, discon tinuation, dose adjustments). ____Problem List / P danielle 1. Adherence History:o Patient re ports having two director mortgage, one was presen t at today's visit.o Refill history demon strates that there are no adherence iss ues at this time.o Receives monthly med boxes from [facility] pharmacy. Patient re ports that she loves monthly medb oxes and how everything is organi zed. Medbox appears organized. Patient r eports one time instance where she p icked up the medbox and one of the boxes had split open. o Patient reports need ing a refill on Colace, originally p rescribed from Dr. Sawyer, but reina sn't have an appointment until ne xt month.o Several discrepancies were n oted between patient's me dication use and [employer]'s active med list: Patient reports taking 10 ml Carafate twice daily. However, pre scription directions are 10ml Q6H before meals. [employer] ([employer]) lists directions of 10mL once daily at bedtime. Patient de nies using any creams: fluocinolone is listed as active med. Patient denies using ondansetron anymore (listed as a ctive med) Patient denies using ranitid ine anymore (listed as active med) Orin ent reports taking Benadryl and Robitus sin occasionally for cough. These are OT C medications that do not appear in pat ient's [employer] list.o Patie nt reports that she would like gabapenti n 100 mg in the medbox, as she takes it twice daily every day. Previousl y was given to patient in vial.o Luis altamirano reports wheezing almost ever y night that increases with soto e in weather. Patient uses provent il as needed almost every night. Patient reports wanting refills on this pres cription.o Patient reports taking 2 tab lets of Excedrin rhrj-sfa-opisyyu jose david ry day for back pain. Assessment: o Refills needed (Colace, proventil). o Medlist in EHR inaccurate (Carafate , fluocinolone, ondansetron,ranitidi ne, Bendaryl, Robitussin).o Pharma cy dispensing error (Medbox opened)o Oth er (Gabapentin not in medbox).o Treatme nt not optimal based on current evidence/ guidelines (Excedrin). Recommendations/Gail toring:o Since patient receives fri medboxes, please contact medbo x pharmacist with any medication soto es (initiations, discontinuation, dos e adjustments).o Dr. Hudson will no t approve refills for colace until sumaya march's appointment next month. Pharmac y has called PCP team nurse to determ ine if PCP would be willing to provide r efill. Please consider prescribing refills for Colace 100 mg daily. Team nurse was also informed about devora lange's request for albuterol inhaler.o Pharmacy has updated [employer] Medlist to r eflect patient's current use of Medic ations including: Carafate 10 ml every 6 hours before meals. Educated sumaya march regarding these prescribed direction s. Patient reported understanding. No l masood uses fluocinolone, ondans etron, and ranitidine.o Pharmac y has updated Medbox to include gabapenti n 100 mg twice daily to reflect the patie nt's current use.o Patient educated on the unnecessary ingredients in Exced rin for back pain and advised to use e xtra strength Tylenol instead. Sumaya march appeared indifferent to this recommendation.o Patient advised to b ring medbox back to pharmacy if the medb ox packaging opens again. Patient agree s she will do so.2. Diabetes Pharmacolo gic Therapy: o Novolog via insulin pump. History:o A1c was 8.6% on 08/26/19 19. o Reports adherence with curre nt regimen. o Reports unconsciousn ess from hypoglycemia last oc curring about 4 years ago. Glucagon is an active med on [employer] Med[employer], but patient denies having at home. Rep orts interest in receiving glucagon f or emergencies. Assessment: o Monit oring standards are not being followed ( A1C).o Refills needed (glucagon). Recommendations/Gail toringo Please consider obtaining A 1C% at next visit as 2019 ADA guidelines recommends an A1C reading every 3 matt hs if patient is not at goal of <7% and l ast A1C on record was 08/25/2018.o Per 2019 ADA guidelines, glucagon should be prescribed for all i ndividuals at increased risk of le margo 2 hypoglycemia. Please consider refi lling glucagon per patient's request. Education:o Patient counseled on glucago n use. Patient understanding and wo uld like to have a glucagon injector.o Patient educated on the signs and sympto ms of hypoglycemia and the masking effe ct beta-blockers have on these sympto ms (on carvedilol). Patient agrees to pa y attention to sweating as this sym ptom is not masked by beta-blockers.3. Chronic Kidney Disease History:o C urrent CrCl: 49.6 ml/min ml/min (10/27) ([employer])o Medications reviewed for renal dose adjustments. Asses sment: No medication-related p roblems at this time. Recommendatio n: Continue current therapy or monitorin g4. Major Depressive Disorder Pharmacoth erapy:o Aripiprazole 20 mg once daily.o C lonazepam 1 mg twice daily as needed for anxiety.o Clonidine 0.1 mg twice daily a s needed for anxiety.o Effexor XR 225 mg once daily. History:o Patient re ports that clonazepam is helpin g her. Assessment: Potential Drug Drug interaction (aripiprazole and ve nlafaxine) Recommendations/Gail toring: Per clinical pharmacolog y, aripiprazole may increase the risk of QT prolongation and other serious toxici ties when given with venlafaxine. Baljinder christianson is on max daily dose of both medicat ions. Patient had a recent EKG performed and QT/QTc intervals were withi n normal limits. Continue monitoring. 5. Hypertension Pharmacologic Therap y:o Carvedilol 6.25mg twice daily.o Amlodipine 10 mg once daily.o Furosem lis 20 mg every 4 days. History:o BP was 119/60 mmHg today and 110/60 mmH g at last PCP visit. o Pertinent labs are within normal limits. Assessment: No medication-related p roblems at this time Recommendation s: Continue current therapy and monitori ng6. ASCVD Risk Pharmacologic Therap y:o Clopidogrel 75mg daily History:o FLP was TC: 133, T, HDL: 64, LDL: 56 mg/dL on 04/24/18. o 10 year ASCVD risk score: 5.5%o LFTs are within normal li mits on 10/27/2018.. Assess ment: o No medication-related p roblems at this time." Recommend ations/Monitoring:o Continue current mon itoring parameters.7. Hypoth yroidism Pharmacotherapy:? Ti rosint 100 mcg once daily. History:? Re ports taking 7 100 mcg Tirosint tablets once a week every Friday.? 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 Assessment: ¢ Dose discrepancy between patient use and prescribed therapy ( Tirosint)? Medlist in EHR inaccurate (T irosint) Recommendations/Gail toring: ? Pharmacy can reach out to sumaya march's endocrinology office ([facility] De Jesus) and justina cummins that they send an updated pres cription to pharmacy to reflect the soto e in dose interval of Tirosint from 100 mcg once daily to 700 mcg once weekly in accordance with how the patient repo rts she was told to take Tirosint by a storm mcdonald in order to increase adherence.? Pharmacy updated EHR medlist to refle ct the once weekly dosing of Tirosint w [facility] the patient reports she currentl y takes Tirosint 700 mcg every Friday. Education:¢ Patient educated on the significance of taking Tirosint with consistency in regar ds to food and medication. Patient reports taking Tirosint at the same time every Friday. 8. Immuni zations- History: o Patient is a Medic are recipient.o Patient received one dose of Zostavax on 09/08/2014.o Patient received PCV13 dose on 04/25/2015. Asse ssment: o Vaccinations needed (Shingrix, PPSV23, Influenza) Recommen dations/Monitoring: o RPH administered 1st Shingrix dose at today's visit. Patie nt advised to follow-up in 2-6 mon ths.o Per CDC immunization guideli roc, patients aged 65 years or older sh ould receive 1 PCV13, followed by 1 dose of PPSV23 at least one year after PCV13. Please consider administeri ng PPSV23 at next visit.o Per CDC immu nization guidelines, it is recommended th at persons 6 months and older receive 1 influenza dose annually. Please con cold meat cook administering influenza vaccine at next visit. Education: o Patient educated on the possible adverse eff ects related to Shingrix and VIIS sh eet provided. Patient understands. 9. General" Medication list has been updated/ verified. Complete med list can be found below or in th e med module.Pharmacist Silvia me: Dasia WatersPharmDPharmac y Student: Priyank Wood MTM visit Pharmacy ConsultPhar jose r Recommendations: Luis altamirano dissatisfied with current pain ma nagement with gabapentin d/t incre ased daytime drowsiness leading t o lack of adherence/decreased pain relief. In clinical trials, a m mao effective and tolerated daily dosa ge of approximately 1500 mg/day, in divi ded doses, has been reported however max dose per renal function 1400mg. Ple ase consider changing Gabapentin 100mg BID to Gabapentin 100mg 2 t abs qhs, and titrate up as needed for thomas n. Potential causes of edema: DDI between sucralfate and furosemide - mona ding to decreased effect of furosemide , or sx of peripheral edema fro m amlodipine. Could consider substitutin g furosemide 20mg for torsemide 10mg e very 4 days due to lack of DDI or could consider discontinuing amlodi pine and observe if edema resolves. Ple ase consider changing pt's diagno sis in [employer] to T1DM for proper mike gement. Please consider prescribing a Glucagon kit for pt as she has fainte d during previous hypoglycemic event. Please consider administering PPSV-2 3 at next PCP visit. Pro blem List / Plan 1. Adherence History:o Patient presented to visit with one of two GAUGE AND WEIGH MACHINE OPERATOR's who manage s medications. Patient relies on PC A to manage medication in pill b oxes Tuesdays and \s, however reports other GAUGE AND WEIGH MACHINE OPERATOR sometimes does not p lace them in the boxes correctly.o Re fill history demonstrates good ad herence however reports forgetting t o take his medication 1x/week. Patient brought current medications to visit and had multiple vials/expir ed medication suggesting non-adher ence.o Reports having medboxes in t he pat. Reports stopping them becaus e medication were being changed often, but now wants again because she has lot s of meds and medboxes are easiero Denies using Bactrim, Artificial Tears, Pantoprazole and Metoprolol. Repo rts taking Calcium Citrate, Ferrets and Carvedilol. Assessment: o Medi cation underuse/poor adherence (all meds) o Medlist in EHR inaccurate (DC: Bact rim, Artifical Tears, Pantoprazole, Metoprolol. Add Calcium Citrate, Parish rets and Carvedilol) Recommendations/Gail toring:o Begin medboxes per patient request. Please contact medbox pharm acist with any medication changes ( initiations, discontinuation, dos e adjustments). Pharmacy gave GAUGE AND WEIGH MACHINE OPERATOR a list of medication outside of medboxo P harmacy updated [employer] Medlist to r eflect patient's current use; remove Bactrim, Artifical Tears, Pantoprazole 40mg daily, and added Calcium Citrat e 250mg BID w/ food, Carvedilol 6.25mg BI D, Ferrets 325mg daily Education w as provided on:o [facility] medbox program (use of boxes, automatic refill, notifying ph armacy of changes to meds, boxes are not child-resistant).o The proper use and i ndications of all medications2. Type 1 Diabetes Pharmacologic Therap y: o Novolog 100unit/mL via pump daily " History:o A1c was 8. 6% on 08/25/18. o Per [employer] Dx pt de león s T2DM, however patient and endocrin ology consult notes 11/06/18 report T1DM. o Reports SMBG 3-4x/week. BG meter readings average 286mg/dL over the pa st 4 days with a high of 407mg/dL and a low of 45mg/dLo Reports having a hyp oglycemic event yesterday, confirmed by BG meter. Reports having crack ers w/PB and juice. Reports knowing Sx o f hypoglycemia and report fainting in t he past (this is standard for a pump) . Reports having glucose tablets, but denies having a glucagon kit.o Repor ts eating oatmeal, cream (of wheat), wh eat bread, hot dogs and eggs. Reports us ing Ensure w/ high protein 1-2x/day as a meal replacement Assessment: o Other (Improper Diagnosis in )o ADR (hy poglycemia)o Inadequate patient s elf management of lifestyle and other non drug variables (Diet) Recommendat ions/Monitoringo Please consider yanes izabella pt's diagnosis in to T1DM f or proper management.o Educate d pt on proper hypoglycemia managem ent. Please consider prescribing a Glucag on kit for pt as she has fainted during p revious hypoglycemic event. Pt refilled g lucose tablets. o Educated patient on proper dietetic diet. Recommended to avoid oatmeal/bread and try more turkish y ogurt and eggs as well as the Ensure. Pt demonstrated understanding and ag dee with plan.3. Cervical neuropathy Pharmacotherapy:o Gabapentin 100mg BID o Acetaminophen 500mg q6-8 hours as needed History:o Reports taking Gabap entin "once in a while due to d aytime drowsinesso Reports a lot of b ack pain and taking acetaminophen in the afternoon and evening Assessment : o Patient dissatisfied (Pain m anagement) Recommendations/Gail toring: o Patient dissatisfied with cu rrent pain management with aleyda pentin d/t increased daytime drowsiness l eading to lack of adherence/decreased pain relief. In clinical trials, a m mao effective and tolerated daily dosa ge of approximately 1500 mg/day, in divi ded doses, has been reported. Max dose p er pt renal function 1400mg. Please consi chio changing Gabapentin 100mg BID to Gabapentin 100mg 2 tabs qhs, and titr ate up as needed for pain. 4. ASCVD (CAD, NSTEMI) / Hypertension Pharma cologic Therapy:o Lipitor 80mg daily o Plavix 75mg dailyo Amlodipine 10mg dalia y o Furosemide 20mg every 4 days o Carve dilol 6.25mg BID History:o FLP was TC : 133, T, HDL: 64, LDL: 56 mg/dL on 04/24/18. Patient currently on appropr iate high intensity statin per secondary ppx ASCVD. GPT slightly elevated at 37unit/L, GOT WNL on 10/27/18o Most rec ent BP 112/60mmHg 11/03/18. o Reports lower extremity edema, specifically the feeto Per Cardio note 11/16/18, pt has a LVEF of 60-65%. Wants to consider sw itching from Plavix to Aspirin if accept able from bariatrics standpoint, but pt r eports a doctor telling her not to t maria eugenia aspirin. o BP was 118/70 mmHg toda y and 112/60 mmHg at last PCP visit on o Pertinent labs WNL on 11/06/18, CrCl 45.3ml/min.o Reports occasional a t-home monitoring of BP. Reports BP aroun d 138/60-70 mmHg, however reports mach ine malfunctions occasionallyo Per Ca rdio note 08/07/18, Metoprolol 25mg was stopped due to BP issues and switched to Carvedilol 6.25mg BID o Pt not on ACEI d/t discontinuation of lisinopril in the presence of [place]ERSON in 2018. Patient's Cr i s now WNL. Assessmento ADR (Per ipheral edema) o Monitoring Standard are not being followed (BP) Recommendations/Gail toring:o Potential causes of edema: DDI between sucralfate and furosemide - mona ding to decreased effect of furosemide , or sx of peripheral edema fro m amlodipine. Could consider substitutin g furosemide 20mg for torsemide 10mg e very 4 days due to lack of DDI or could consider discontinuing amlodi pine and observe if edema resolves.o Rec ommended pt to get a larger BP cuff at th e medication supply store5. Hypothyroidi sm Pharmacotherapy:o Tr inosint 88mcg daily (pt takes 7tabs week ly) History:o Last TSH level was 2.90mI U/L on 09/08/18. Free T4 0.74ng/dL 09/08/18 .o GAUGE AND WEIGH MACHINE OPERATOR and patient report provider shell salgado pt take 7 tabs once weekly d/t lack of adherence o Pt brought in Trinosint 100mcg that was Assessment : o Dose Discrepancies betwee n patient use and prescribed therapy ( Triosint)o Using medications (Triosint) Recommendations/Gail toring: o Discussed w/ pt if s he would prefer to take Triosint daily in the medbox, or once weekly. Since T riosint has to be taken before food an d medication, pt prefers to do it onc e weekly. Pharmacy will contact prescri marshal to send a new prescription for Tri osint 88mcg 7 tablet weekly o Educated th e patient that the pharmacy has a drug disposal bin to threw away medicatio n that are or have been DC'd 6. Iron Deficiency Anemia " Pharmac otherapy:o Ferrets 325mg dailyo Thiamin e 100mg daily o Calcium Citrate 250m g 2 tabs BID " History: o Reports skipping Ferrets 2x/week due to constipation. Reports taking Colac e daily.o Vitamin B-1 level are elevat ed at 165mmol/L on 04/24/18 Assessment: o Drug dosing excessive for treatm ent goals (Thiamine) Recommen dations/Monitoring: o Vitamin B-1 goals range 8-30mmol/L. Pharmacy contacted R kay' office, reported will discus s with patient at followup.7. GI - Pos t Bariatric Surgery Pharmacotherapy:o Vitamin A 10,000 units 2 cap daily o Vitamin C 500mg daily o Vitamin D3 2 ,000 units daily o Zinc 50mg every othe r osmany Carafate 1gram/10mL 10ml qhso Ranitidine 150mg qhs History:o Pt had Bariatric Surgery on 07/22/17o R eports taking Vitamin A 1 tablet d aily. Reports GAUGE AND WEIGH MACHINE OPERATOR filled medbox incorr ectlyo Reports taking Carafate as n eeded for nausea.o Reports using Raniti dine 2x/week. Ranitidine was last filled on 01/23/18, then renewal was den ied on 05/04/18 Assessment: o Medi ation Underuse (Vitamin A) o Medica tion Underuse (Carafate)o Refills Needed (Ranitidine) Recommendations/Gail toring: o Vitamin A will be place in t he medbox with correct dose of 2 ta bs daily on Friday11/23/18o Educated Car afate to take daily, patient demonstrated understanding and agreed with plan. o Pharmacy contacted prescriber to verify if pt should be taking Ranitidine. P rescriber want pt to contact them directl y. Will F/U with patient.8. 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 Immunizations" A ssessment: o Vaccination Needed ( Shingrix, PPSV-23) Recommendations/Gail toring: o Please consider administeri ng PPSV-23 at next PCP visit. Pharmacy will contact pt when Shingrix vaccine is available for [id number]. [facility] Medication list has been update d/ verified. Complete med list ca n be diabetes The problem is stabl e. Risk factors include: /La chuy [place]an, over age [age] years old and sedentary lifestyle. She Has b een managed with insulin. Comorbidity : Hypertension. There are no associa steve symptoms. hypertension Comorbid conditions include chronic kidney disease and d iabetes mellitus. It is currently stab le. Risk factors include age over age 60, depression, inactive lifestyle a nd obesity. There are no associated sy mptoms. hyperlipidemia Risk factors include age over 50 and thyroid disease. Pos itive comorbidity factors include thyr oid disease. There are no associated sy mptoms. ER f/u Pt was seen at [facility] on 02/12/2018 after pt apparently climbed out of her bed and fell on her face after taking Lorazepam. work up i n the ER included a CT of her brain and Cervical spine that were negative. Pt's symptoms resolvedPt is convinced the Scarlet azepam caused her to be delirious Med Reconciliation S: Pt presented for a med rec appt today. Pt states trish ing all meds as directed from multip le prescribers. O/A: Pt brought in all me ds to appt and med list updated on med module. P: Pt advised to continue taking meds as directed. NSTEMI Pt here for a HDF. Admitted to [facility] s/p NSTEMI Pharmacy HDF Pharmacist Juventino august met with patient MR today to discuss recent discharge from [facility] s /p DKA and NSTEMI discharge (01/28/17) . Medication reconciliation was p erformed.All medications and yanes ges were reviewed with the patient, luis altamirano verbalized understanding and me dication list was updated.Information regarding new prescriptions after hospital discharge was provided to the patient. Understanding of med ications was assessed during the visit today. The following changes we re made within the EHR by pharmacy: Me dications discontinued include : None Medications added i nclude: Aspirin 81mg Daily, Novolog per S S until pump resumes, Lantus 10 U nits QHS until pump resumes Medication c hanges include: NonePatient reports: After thorough investigation the co nsensus is that the patient is using [facility], [facility], and [facility] [address] She is followed closely by Dr. Hudson as she is 2 months post gastric bybass. She has a written list o f the medications she takes every day as of last GI visit which includes, amlo dipine, lisinopril, ranitidine, Effexor XR 75 + 37.5mg, clonazepam, levothyr oxine, clopidogrel and multiple vitamin s. Pt reports she ran out of amlodipin e so hasn't taken it (last refil l 12/11/16). She reports for her card iac regimen she has only been taking lis inopril 10mg and aspirin 81mg. Pt rep antonieta Hudson just sent the Plavix to pharmacy so she has still been takin g aspirin. Per [facility], Plavix was prescribe d on 02/06/17. Dr. Hudson has also prescribed KCL 8meq 2 tabs BID and Lasix 20mg QOD. Per pt she was fluid overlo aded and has since been better, Ramiro zamora gave verbal instructions to take once every 4th day, but patient has self discontinued. Pt is very concerned about all of the changes being made by all of her different providers and wishes to restart medboxes if possible. Recomme ndations made to provider: - Cardiolo gy consult from [facility] recommended continuing metoprolol tartrate 25mg bid, atorvastatin 80mg as well as aspirin 81mg as opposed to P lavix. Dr. Hudson has alre mikey made the decision to continue clopidogrel 75mg daily and discontinu e aspirin, but consider sending [facility] a prescription for increased dose o f atorvastatin 80mg daily. Also consider adjusting hypertension regimen to include metoprolol and lisin opril instead of amlodipine and lisin opril dependent on todays bp (under inf luence of only lisinopril).- Consid er discontinuing furosemide. Dr. Asad georges has prescribed 4 month s upply, indication appeared to be symto matic swelling post hydration at [facility], he has already given instructions t o decrease to every 4th day. Pt DKA was exacerbated by dehydration prior to hospital admission as well. Other Notes and Other Changes to medlist in Nextge n:Added latest Regimen from Ramiro perez: vitamin A 10,000 units 2 caps daily, B12 1000mcg tab daily, Clopidogr el 75mg daily, D3 2000 units daily, do cusate 100mg daily as needed, thiamine 100mg daily, multivitamin 1 tab d aily diabetes The problem is sta ble. Risk factors include: /La chuy [place], over age [age] years old and sedentary lifestyle. She Has b een managed with insulin. Comorbidity : Hypertension. There are no associa steve symptoms. hyperlipidemia Risk factors includ e age over 50 and thyroid disease. Pos itive comorbidity factors include thyr oid disease. There are no associated sy mptoms. diabetes The problem is sta ble. Risk factors include: /La chuy [place], over age [age] years old and sedentary lifestyle. She Has b een managed with oral medications and insulin. Comorbidity: Hyperte nsion. There are no associated symptoms. hypertension Comorbid condition s include chronic kidney disease and d iabetes mellitus. It is currently stab le. Risk factors include age over age 60, depression, inactive lifestyle a nd obesity. There are no associated sy mptoms. hypertension Comorbid condition s include chronic kidney disease and d iabetes mellitus. It is currently stab le. Risk factors include age over age 60, depression, inactive lifestyle a nd obesity. There are no associated sy mptoms. diabetes The problem is sta ble. Risk factors include: /La chuy [place], over age [age] years old and sedentary lifestyle. She Has b een managed with insulin. Comorbidity : Hypertension. There are no associa steve symptoms. hypothyroidism Here for f/u rv dm diabetes The problem is sta ble. Risk factors include: /La chuy [place], over age [age] years old and sedentary lifestyle. She Has b een managed with insulin. Comorbidity : Hypertension. There are no associa steve symptoms. diabetes The problem is get ting worse. Risk factors include: His panic/ [place]an, over age 4 5 years old and sedentary lifestyle. Patient is compliant with follo w-up. She Has been managed with insulin ., Avg 266. Comorbidity: Hyperte nsion. There are no associated symptoms. hypertension Comorbid condition s include chronic kidney disease and d iabetes mellitus. It is currently stab le. Risk factors include age over age 60, depression, inactive lifestyle a nd obesity. There are no associated sy mptoms. diabetes The problem is sta ble. Risk factors include: /La chuy [place], over age [age] years old and sedentary lifestyle. Patient i s compliant with using medication, an d follow-up. She Has been managed with or al medications and insulin. Comorbidity : Hypertension. There are no associa steve symptoms. No Travel diabetes Risk factors includ e: / [place]an, obesity an d over age [age] years old. Patient is comp liant with using medication, and educ ation materials. She Has been managed wit h insulin and fingerstick blood kong gars (). Comorbidity: Hyperte nsion. There are no associated symptoms. hypertension Comorbid condition s include chronic kidney disease and d iabetes mellitus. Risk factors include age over age 60, depression and obesi ty. There are no associated symptoms. The patient has not traveled. hyperlipidemia Risk factors includ e age over 50 and thyroid disease. The patient is adhering to follow-up for the ir hyperlipidemia. The patient is not a dhering to medication, diet and exercise for their hyperlipidemia. The patient is adhering to follow-up for the ir diabetes management. The orin ent is not adhering to medication, diet for their diabetes management. The orin ent is managing diabetes with inject ed insulin. Positive comorbidity factors include thyroid disease. There are n o associated symptoms. f/u depression The patient reports functioning as very difficult. The patie nt presents with depressed mood, diff iculty concentrating, diffi culty falling asleep, diminished i nterest or pleasure, fatigue, feelings of guilt, loss of appetite and restles sness but denies thoughts of or suicide. The patient denies any h eadache, nausea and vomiting. f/u (comments) Brandie is here for kevin marie f/u. She was seen by Endo 09/01 an d her insulin changed once again t o Lantus 25 in am and 35 in pm and Hum alog sliding scale. Her glucometer shows 7d avg of 286, 14d 229, 30d 240. No hyp oglycemia noted. She has been having vert igo for the past 2 months whenever she bends over or moves her head rapidly She has been using meclazine to good ef fect. No tinnitus or headache.She was see n by Dr. Tang 04/27 and stable. chronic conditions Diabetes mellitus,Ty pe 2, Uncontrolled (Brandie was seen by e ndocrinology on 12/02/12. She continu es to miss several doses of her insulin a week and does not check her sugars con sistantly. Compliance has alway s been a very big issue for her. She h as had no further episodes of hypoglyc emia since the last visist. She is wilin g to have [facility] come to the home to help her with the insulin.) Hypertensi on, Benign (onset 09/02/2012. Brandie de nies any CP, SOB, palpitations or prob lems with medicaitons.) Fibrom yalgia (She is c/o severe pain especial ly over the base of the skull, neck, and shoulders. She was seen in the ED recen tly and referred to a pain specialist fo r which she needs a referral. She is trish ing her medications as prescribed but fe els she cannot tolerate an incrases of the dose of gabapentin due to si de effects.) Hyperlipidemia (She reports taking her medications as direc steve.) Functional Status Date Functional Assessment No Information Instructions Date Instruction Additional Informati on No Information Assessments Type Assessment Date No Information
== END 2021-01-08 12:38 | disposition home health service (06) | DRG 418 ==
LOC: HO.ED 19:52 → HO.EDOVER 01-02 01:29 → HO.S3 01-02 06:38
PROVIDERS: Internal Medicine; Physician Assistant; Physician Assistant Medical; Physician Assistant Surgical; Admitting Provider Surgery; Emergency Provider Emergency Medicine; PCP Internal Medicine; Visit Provider Surgery
PROC: 0FT44ZZ Resection of Gallbladder, Percutaneous Endoscopic Approach (ICD-10-PCS; CPT 47562; principal; 2021-01-04 10:20)
DX: K81.0 Acute cholecystitis (principal); K82.1 Hydrops of gallbladder; I25.10 Atherosclerotic heart disease of native coronary artery without angina pectoris; I10 Essential (primary) hypertension; E78.5 Hyperlipidemia, unspecified; E06.3 Autoimmune thyroiditis; K66.0 Peritoneal adhesions (postprocedural) (postinfection); D63.8 Anemia in other chronic diseases classified elsewhere; E11.65 Type 2 diabetes mellitus with hyperglycemia; Z20.822 Contact with and (suspected) exposure to COVID-19; Z98.84 Bariatric surgery status; I25.2 Old myocardial infarction; Z88.5 Allergy status to narcotic agent; Z88.6 Allergy status to analgesic agent; Z79.4 Long term (current) use of insulin; Z79.890 Hormone replacement therapy; Z79.899 Other long term (current) drug therapy
CPT/HCPCS: 0241U; 36415; 74177; 76700; 80048; 80053; 80076; 81003; 82947; 83605; 83690; 83735; 85025; 85027; 85610; 86850; 86900; 86901; 86923; 87040; 87147; 87205; 87635; 88304; 93005; 96365; 96375; 96376; 99024; 99284; 99285; J0131; J1100; J1170; J1200; J2270; J2405; J2543; J3010; P9016; Q9967

== ENCOUNTER → 2021-01-17 15:59 | Outpatient (BNVA) | payer MEDICARE, SELFPAY | PROVIDERS: PCP Internal Medicine; Referring Provider Internal Medicine; Visit Provider Surgery | DX: Z48.815 Encounter for surgical aftercare following surgery on the digestive system (principal); Z90.49 Acquired absence of other specified parts of digestive tract | CPT/HCPCS: 99212 ==

== ENCOUNTER → 2021-02-23 10:22 | Outpatient (BNVA) | payer MEDICARE, SELFPAY | PROVIDERS: PCP Internal Medicine; Referring Provider Internal Medicine; Visit Provider Physician Assistant | DX: K91.2 Postsurgical malabsorption, not elsewhere classified (principal); Z90.3 Acquired absence of stomach [part of]; Z98.84 Bariatric surgery status | CPT/HCPCS: 99212 ==

== ENCOUNTER 2021-03-12 09:51 | Inpatient (IN) | payer MEDICARE, SELFPAY ==
[2021-03-12] VITALS (8 sets, daily range): BP systolic 128–158; BP diastolic 46–105; PULSE 60–86; RESP 14–22; TEMP 36.6–36.9; O2SAT 94–96; BMI 23.4
--- NOTE | ~2021-03-12 | CT_ITS ---
EXAMINATION: CT ABDOMEN AND PELVIS WITH CONTRAST CLINICAL INFORMATION: Follow-up fluid collection gallbladder fossa COMPARISON: Previous CT of the abdomen and pelvis 03/12/2021 TECHNIQUE: Multidetector volumetric images were obtained from the superior aspect of the liver through the pubic symphysis following administration 85 mL of Omnipaque 350 intravenous contrast. Sagittal and coronal reformatted images were obtained on the technologist's workstation. Oral contrast: Yes This CT examination was performed using dose optimization techniques as appropriate, variously including the following: *Automated exposure control *Adjustment of mA and/or kV according to patient size (this includes techniques or standardized protocols for targeted exams where dose is matched to indication/reason for exam; i.e. extremities or head) *Use of iterative reconstruction technique DLP: 421 mGy-cm FINDINGS: LUNG BASES: There are small bilateral pleural effusions that are new or increased. There is a tiny pericardial effusion that is stable.. LIVER, GALLBLADDER, AND BILIARY TREE: The liver is normal in size, shape, and attenuation. No focal hepatic lesion or biliary ductal dilatation is present. The gallbladder is been removed. There is a 2.4 x 4 cm fluid collection in the gallbladder fossa. This does not appear appreciably changed in size from 03/12/2021 exam. This again contains a small amount of air. There is some reactive low-attenuation or edema in the adjacent right lobe of the liver. No other focal liver lesion is seen. There is no biliary duct dilatation. There is a small amount of ascites seen around the liver and in the pelvis. This does not appear appreciably changed. PANCREAS: Pancreas appears atrophic. Pancreas is otherwise unremarkable. SPLEEN: Unremarkable. ADRENAL GLANDS: Unremarkable. KIDNEYS AND URETERS: The kidneys are normal in size, shape, and attenuation. No hydronephrosis, hydroureter, or calculi seen. No perinephric stranding. BLADDER: Unremarkable. GASTROINTESTINAL TRACT: There is stool throughout the colon suggestive of constipation. There are postsurgical changes from gastric bypass. Small and large bowel is otherwise unremarkable. ABDOMINAL WALL: No significant hernia is appreciated. LYMPH NODES: Normal. VASCULAR: Unremarkable. PELVIC VISCERA: Unremarkable. OSSEOUS STRUCTURES: There are degenerative changes of the spine and hip joints. Mild compression fracture versus Schmorl's node of the T11 vertebral body unchanged. CT/CT abdomen pelvis w con IMPRESSION: No significant change in the 2.4 x 4 cm fluid collection in the gallbladder fossa and small amount of air. Small amount of ascites adjacent to the liver and in the pelvis also unchanged. If there is clinical suspicion of bile leak, HIDA scan would be recommended. Constipation. Postsurgical changes from gastric bypass. Fleischner guidelines were followed.
--- NOTE | ~2021-03-12 | CT_ITS ---
EXAMINATION: CT ABDOMEN AND PELVIS WITHOUT CONTRAST CLINICAL INFORMATION: Abdominal pain COMPARISON: Previous abdominal ultrasound and CT of the abdomen and pelvis December 2020 TECHNIQUE: Multidetector volumetric imaging was performed from the superior aspect of the liver through the pubic symphysis. Sagittal and coronal reformatted images were obtained on the technologist's workstation. This CT examination was performed using dose optimization techniques as appropriate, variously including the following: *Automated exposure control *Adjustment of mA and/or kV according to patient size (this includes techniques or standardized protocols for targeted exams where dose is matched to indication/reason for exam; i.e. extremities or head) *Use of iterative reconstruction technique DLP: 383 mGy-cm FINDINGS: LUNG BASES: The visualized lung bases are clear. There is a tiny pericardial effusion. LIVER, GALLBLADDER, AND BILIARY TREE: The liver is normal in size, shape, and attenuation. No focal hepatic lesion or biliary ductal dilatation is present. The gallbladder has been removed. There is a small heterogeneous mixed high and low attenuation appearing collection in the gallbladder fossa. There is a tiny amount of air. Small abscess or a hematoma in the gallbladder fossa should be considered. There is a small amount of ascites seen surrounding the liver. PANCREAS: Pancreas appears slightly atrophic. The pancreas is otherwise unremarkable. SPLEEN: Unremarkable. ADRENAL GLANDS: Unremarkable. KIDNEYS AND URETERS: The kidneys are normal in size, shape, and attenuation. No hydronephrosis, hydroureter, or calculi seen. No perinephric stranding. BLADDER: Unremarkable. GASTROINTESTINAL TRACT: There is stool throughout the colon suggestive of constipation. The small and large bowel are unremarkable. There are postsurgical changes from gastric bypass. ABDOMINAL WALL: There is a small umbilical hernia containing fat. LYMPH NODES: Normal. VASCULAR: Unremarkable. PELVIC VISCERA: Unremarkable. OSSEOUS STRUCTURES: There is a mild compression fracture versus Schmorl's node in the T11 vertebral body that appears unchanged. CT/CT abdomen pelvis wo con IMPRESSION: 3 x 4 cm heterogeneous fluid collection in the gallbladder fossa and small amount of air. Small abscess or infected hematoma should be considered. Trace ascites seen surrounding the liver. If there is clinical suspicion of a bile leak, HIDA scan would be recommended. No biliary duct dilatation. Stool throughout the colon suggestive of constipation. Postoperative changes from gastric bypass surgery. Fleischner guidelines were followed.
--- NOTE | ~2021-03-12 | CT_ITS ---
PROCEDURE: CT GUIDED DRAINAGE, PERITONEAL ABSCESS CLINICAL INFORMATION: Status post cholecystectomy with fluid collection in the gallbladder fossa. COMPARISON: CT abdomen and pelvis 03/14/2021 TECHNIQUE: Following explaining CT fluoroscopy-guided catheter drainage procedure, benefits and risks via a assistant director of residence life to the patient, written consent was obtained. Patient was placed supine on CT fluoroscopy table and preliminary imaging was obtained through the upper abdomen. An optimal site was initially selected along the anterior right upper quadrant. Area were marked, cleaned and draped in usual sterile manner. 1% lidocaine was administered at puncture site. Through a small skin incision a 5-[place] Yueh catheter was advanced into the right upper quadrant gallbladder fossa and no fluid could be aspirated. Hence, the needle was repositioned laterally and advanced intercostally into the gallbladder fossa. Aspiration was performed and postprocedure the catheter was removed and complete hemostasis achieved at puncture site. Sterile dressing applied postprocedure. Conscious sedation was administered with patient monitored by IR nurse and the physician during the exam. This CT examination was performed using dose optimization techniques as appropriate, variously including the following: *Automated exposure control *Adjustment of mA and/or kV according to patient size (this includes techniques or standardized protocols for targeted exams where dose is matched to indication/reason for exam; i.e. extremities or head) *Use of iterative reconstruction technique DLP: 683 mGy-cm FINDINGS: On preliminary ultrasound imaging there are bilateral small pleural effusions. The gallbladder has been removed with hypodense area within the gallbladder fossa likely old bilateral hematoma which measures [address] fluoroscopy-guided 5-[place] Citizen Yueh catheter was advanced through the right anterior abdomen followed by right lateral abdomen to the right lower quadrant gallbladder fossa and the described collection was aspirated. However, nothing could be aspirated at this time. The exam was terminated. CT/CT drain peritoneum IMPRESSION: Successful attempted right upper quadrant gallbladder fossa fluid collection. However, no fluid could be withdrawn or aspirated during the exam. Patient is status post cholecystectomy. Results were conveyed to Dr. Elmira Pelayo after the exam.
--- NOTE | ~2021-03-12 | XR_ITS ---
EXAMINATION: XR KNEE, RIGHT CLINICAL INFORMATION: Knee pain and swelling. COMPARISON: None TECHNIQUE: Four views of the right knee. FINDINGS: [id number] tricompartmental degenerative joint changes are seen most pronounced in the femoral tibial joint spaces with chondrocalcinosis. There is no acute fracture, dislocation or joint effusion. The soft tissues are unremarkable. XR/XR knee RT 4V IMPRESSION: [id number] tricompartmental degenerative joint changes. No acute abnormality.
--- NOTE | ~2021-03-12 | CT_ITS ---
EXAMINATION: CT ABDOMEN AND PELVIS WITH CONTRAST CLINICAL INFORMATION: Follow-up fluid collection. COMPARISON: CT scan abdomen pelvis 03/14/2021, 03/12/2021, 01/01/2021. Ultrasound of abdomen 01/01/2021 TECHNIQUE: Multidetector volumetric images were obtained from the superior aspect of the liver through the pubic symphysis following administration 85 mL of Omnipaque 350 intravenous contrast. Sagittal and coronal reformatted images were obtained on the technologist's workstation. Oral contrast: No This CT examination was performed using dose optimization techniques as appropriate, variously including the following: *Automated exposure control *Adjustment of mA and/or kV according to patient size (this includes techniques or standardized protocols for targeted exams where dose is matched to indication/reason for exam; i.e. extremities or head) *Use of iterative reconstruction technique DLP: 323 mGy-cm FINDINGS: LUNG BASES: There are trace dependent bilateral pleural effusions. Heart size normal. There are coronary artery calcifications. No pericardial effusion. LIVER, GALLBLADDER, AND BILIARY TREE: The liver is normal in size, shape, and attenuation. No focal hepatic lesion or biliary ductal dilatation is present. Status post cholecystectomy. Small fluid collection at the gallbladder fossa is persistent. Measures approximately 4 x 2.2 cm. There are a couple of tiny air droplets in this collection. Fluid collection is not substantially changed since CAT scan 03/14/2021. PANCREAS: Pancreas is atrophic. No pancreatic duct dilatation. No edema around the pancreas. SPLEEN: Unremarkable. ADRENAL GLANDS: Unremarkable. KIDNEYS AND URETERS: The kidneys are normal in size, shape, and attenuation. No hydronephrosis, hydroureter, or calculi seen. No perinephric stranding. BLADDER: Unremarkable. GASTROINTESTINAL TRACT: Status post gastric bypass surgery. No acute change of the bowel. No bowel obstruction. The bowel wall thickening or edema. Moderate volume of stool throughout the colon. The appendix is not visualized. Mesentery: Small volume of free fluid in the cul-de-sac in the pelvis. No abscess. No free air. ABDOMINAL WALL: No significant hernia is appreciated. Mild edema in the subcutaneous tissue along the right flank and mild generalized anasarca pelvis bilaterally. LYMPH NODES: Normal. VASCULAR: Unremarkable. PELVIC VISCERA: The uterus is anteverted. There is no adnexal abnormality. OSSEOUS STRUCTURES: No acute osseous abnormality. Mild degenerative spondylosis of the spine. CT/CT abdomen pelvis w con IMPRESSION: 1. Status post cholecystectomy. Persistent small fluid collection with air in the gallbladder fossa unchanged since prior CAT scan 03/14/2021. 2. Status post gastric bypass surgery. No acute abnormality of the bowel.
--- NOTE | 2021-03-12 10:05 | ED_ITS ---
HPI - Nausea/Vomiting/Diarrhea General Chief complaint: Abdominal Pain Stated complaint: ELEVATED ,NAUSEA & VOMITING Time Seen by Provider: 03/12/21 10:05 Source: patient, EMS and insurance coordinator Mode of arrival: EMS Limitations: altered mental status History of Present Illness MD elicited complaint: nausea and abdominal pain Pertinent past history: other (hx of gastric bypass, laparascopic cholecystectomy) Onset (ago): day(s) (Friday) Associated nausea: Yes Associated abdominal pain: Yes Location of pain: epigastric Pain consistency: constant Severity: moderate Quality: aching Exacerbating factors: eating Relieving factors: none Context: other (patient is not giving much information, she is staring off, she notes BS have been in 300s ) Associated symptoms: loss of appetite, malaise, nausea/vomiting and altered mental status Related Data Home Medications Medication Instructions Recorded Confirmed venlafaxine 150 mg 150 mg PO DAILY cap 01/28/20 03/12/21 capsule,extended release 24 hr (Effexor XR) aripiprazole 20 mg tablet 20 mg PO BEDTIME 02/17/20 03/12/21 blood sugar diagnostic #10 ea 02/17/20 02/23/21 gabapentin 100 mg capsule 100 mg PO BID 02/17/20 03/12/21 hydroxyzine HCl 10 mg tablet 10 mg PO Q8H PRN tab 02/22/20 03/12/21 prazosin 2 mg capsule 4 mg PO BEDTIME cap 05/12/20 03/12/21 diclofenac sodium 75 mg 75 mg PO BID 08/28/20 03/12/21 tablet,delayed release esomeprazole magnesium 40 mg 40 mg PO DAILY 08/28/20 03/12/21 capsule,delayed release clonazepam 0.5 mg tablet 1 tab PO Q8H PRN 01/02/21 03/12/21 insulin aspart 2 - 15 unit SUBCUT QIDACHS PRN 01/02/21 03/12/21 (niacinamide)(U-100) 100 unit/mL(3 mL) subcutaneous pen (Fiasp FlexTouch U-100 Insulin) sucralfate 1 gram tablet 1 tab PO BID 01/02/21 03/12/21 calcium citrate 200 mg (950 mg) 400 mg PO BID@1200,1800 03/12/21 03/12/21 tablet insulin degludec 100 unit/mL (3 12 unit SUBCUT DAILY 03/12/21 03/12/21 mL) subcutaneous pen (Tresiba FlexTouch U-100 insulin) Previous Rx's Medication Instructions Recorded atorvastatin 80 mg tablet 80 mg PO DAILY 30 Days #30 tab 01/28/20 BD Cherelle 2nd Gen Pen Needle 32 #200 ea NS 06/12/20 gauge x 5/32 (pen needle, diabetic) insulin syringe-needle U-100 0.3 #100 ea 06/13/20 mL 31 gauge x 5/16 (BD Insulin Syringe Ultra-Fine) Dexcom G6 Sensor (blood-glucose #3 ea NS 07/26/20 sensor) clopidogrel 75 mg tablet 75 mg PO QAM #30 tab 09/28/20 amlodipine 10 mg tablet 10 mg PO DAILY 30 Days #30 tab 10/10/20 blood sugar diagnostic (FreeStyle #200 ea 10/25/20 Lite Strips) Tirosint 88 mcg capsule 88 mcg PO DAILY 30 Days #30 cap NS 10/30/20 (levothyroxine) carvedilol 6.25 mg tablet 6.25 mg PO BID 90 Days #180 tab 11/03/20 furosemide 20 mg tablet 20 mg PO QAM #90 tab 11/03/20 cholecalciferol (vitamin D3) 50 50 mcg PO DAILY 30 Days #30 cap 12/21/20 mcg (2,000 unit) capsule blood-glucose meter (FreeStyle #1 ea 02/01/21 Lite Meter) Allergies Allergy/AdvReac Type Severity Reaction Status Date / Time lorazepam [LORAZEPAM] Allergy Severe DELIRIUM Verified 02/23/21 10:34 celecoxib [From Celebrex] Allergy Intermediate ITCHING Verified 02/23/21 10:34 tramadol [TRAMADOL] Allergy Intermediate ITCHING Verified 02/23/21 10:34 zolpidem [Ambien] Allergy Unknown unknown Verified 02/23/21 10:34 Review of Systems Review of Systems: Constitutional : No Weight loss, No Fever, No Chills ENT/Mouth : No sore throat, No Rhinorrhea Eyes: No Swelling, No Redness Cardiovascular : No Chest Pain, No SOB, NoEdema Respiratory : No Cough, No Sputum, No Wheezing Gastrointestinal : Positive Nausea, no Vomiting, no Diarrhea, positive abdominal Pain, No Hematochezia, No Melena Genitourinary : No Dysuria, No Urinary Frequency, No Hematuria, No Urgency Musculoskeletal : No joint pain, No Myalgias, No Joint Swelling Skin : No Skin Lesions, No rash Neuro : No Weakness, No Numbness, No Dizziness, No Headache, pos confusion Psych : No Anxiety/Panic, No Depression Heme/Lymph: No Bruising, No Lymphadenopathy Endocrine : No Polyuria, No Polydipsia All other systems reviewed and are negative. Gastrointestinal: Gastrointestinal: Reports nausea PMFSH Past Medical History Source: old records reviewed Medical History (Updated 03/12/21 @ 15:02 by Sara Guthrie NP) Anxiety Atherosclerotic cardiovascular disease Cholecystitis Depression Diabetes type 1, uncontrolled Dyslipidemia Elevated liver function tests Essential hypertension Fibromyalgia Folliculitis Rona's disease History of myocardial infarction Hyperlipidemia, unspecified Hyperparathyroidism due to vitamin D deficiency Hypertension 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 Hypothyroidism Intestinal malabsorption following gastrectomy NSTEMI (non-ST elevated myocardial infarction) Obesity (BMI 30-39.9) Surgical History (Updated 03/12/21 @ 13:48 by Sara Guthrie NP) H/O gastric bypass History of bladder suspension procedure History of laparoscopic cholecystectomy Hx of appendectomy Status post laser cataract surgery of both eyes Family History Family History Father No problems noted. Mother No problems noted. Social History Social History Alcohol intake: never Patient Tobacco Use Status: Never used Tobacco Advance Directives: No Advance Directives Information Provided: Yes service: No Current occupational status: disabled Physical Exam Vital Signs: Vital Signs: Last Vital Signs Temp 98.3 F 03/12/21 12:31 Pulse 71 03/12/21 13:10 Resp 22 H 03/12/21 13:10 BP 128/48 L 03/12/21 13:10 Pulse Ox 96 03/12/21 10:06 Body Mass Index 23.4 Appearance: Alert. Oriented X2. No acute distress. Eyes: Pupils equal, round and reactive to light. ENT: Pharynx normal. Neck: Normal inspection. Neck supple. CVS: Normal heart rate and rhythm. Pulses normal. Respiratory: No respiratory distress. Breath sounds normal. Abdomen: Soft and moderate ttp in epigastric area no mass felt no rebound Skin: Skin warm and dry. Normal skin color. Normal skin turgor. Extremities: No lower extremity edema. No calf ttp Neuro: Oriented X 2 (time). No motor deficit. No sensory deficit. Course Course Course Narrative: given CT scan IV zosyn ordered call to surgery made at 1213pm Dr. Pelayo aware will admit patient did discuss her mild confusion MDM - Nausea/Vomiting/Diarrhea MDM Narrative Medical decision making narrative: 71 yo female with hx of DM, HTN, CAD, depression, hx of gastric bypass and lap cholecystectomy comes in with BS in 300s upper abdominal pain and nausea she is also confused to time which appears new from her prior visit at this time will obtain labs, cultures, UA, EKG, trop onin, CT abdomen for SBO - IVF and IV zofran - dispo per results and findings. Lab Data Result diagrams: 03/12/21 10:36 03/12/21 10:36 Labs: Lab Results 03/12/21 03/12/21 03/12/21 Range/Units 10:17 10:36 10:36 WBC 16.6 H (4.8-10.8) X10*3/uL RBC 4.49 (4.20-5.50) X10*6/uL Hgb 11.9 L (12.0-16.0) g/dl Hct 38.0 (37.0-47.0) % MCV 84.6 (80.0-98.0) fL MCH 26.5 L (27.0-33.0) pg MCHC 31.3 (31.0-35.0) g/dl RDW 16.9 H (11.0-16.0) % Plt Count 254 (160-400) X10*3/uL MPV 11.5 (9.4-12.3) fL Immature Gran % (Auto) 0.5 H (0.0-0.4) % Neut % (Auto) 86.5 H (45-73) % Lymph % (Auto) 9.2 L (20-40) % [place] % (Auto) 3.6 (2-11) % Eos % (Auto) 0.0 (0-4) % Baso % (Auto) 0.2 (0-2) % Lymph # (Auto) 1.5 (1.2-4.9) X10*3/uL [place] # (Auto) 0.6 (0.1-1.2) X10*3/uL Eos # (Auto) 0.0 (0.0-0.4) X10*3/uL Baso # (Auto) 0.0 (0.0-0.2) X10*3/uL Abs Immat Gran (auto) 0.09 H (0.00-0.03) X10*3/uL Absolute Neuts (auto) 14.4 H (2.0-8.3) x10*3/uL Absolute Nucleated RBC 0.000 (0.0-0.012) X10*3/uL Nucleated RBC % (auto) 0.0 (0.0-0.2) /100WBC VBG pH (7.32-7.43) VBG pCO2 mmHg VBG pO2 mmHg VBG HCO3 (22-26) mmol/L VBG O2 Saturation % VBG Base Excess mmol/L Sodium 136 (135-145) mmol/L Potassium 5.6 H D (3.3-5.1) mmol/L Chloride 98 (96-108) mmol/L Carbon Dioxide 28 (22-29) mmol/L Anion Gap 16 (12-20) BUN 28 H D (9-16) mg/dL Creatinine 1.41 H (0.5-1.4) mg/dL Estim Creat Clear Calc 30.3 Estimated GFR 37 POC Glucose 296 H (60-115) mg/dL Random Glucose 379 H* (60-115) mg/dL Lactic Acid (0.5-2.0) mmol/L Calcium 9.4 D (8.4-10.2) mg/dL Magnesium 2.3 (1.6-2.6) mg/dL Total Bilirubin 0.6 (0.0-1.0) mg/dL Direct Bilirubin 0.3 (0.0-0.5) mg/dL AST 34 H D (5-31) U/L ALT 40 H (0-31) U/L Alkaline Phosphatase 129 H D (39-117) U/L Ammonia (13-55) umol/L Troponin I High Sens (<3.5-17.0) ng/L Total Protein 6.5 D (6.5-8.0) g/dL Albumin 3.8 D (3.5-5.0) g/dL Lipase 13 (8-78) U/L TSH 7.92 H (0.32-4.0) uIU/mL COVID-19 ([facility]) (Negative) COVID-19 Clin Com 03/12/21 03/12/21 03/12/21 Range/Units 10:36 10:36 10:36 WBC (4.8-10.8) X10*3/uL RBC (4.20-5.50) X10*6/uL Hgb (12.0-16.0) g/dl Hct (37.0-47.0) % MCV (80.0-98.0) fL MCH (27.0-33.0) pg MCHC (31.0-35.0) g/dl RDW (11.0-16.0) % Plt Count (160-400) X10*3/uL MPV (9.4-12.3) fL Immature Gran % (Auto) (0.0-0.4) % Neut % (Auto) (45-73) % Lymph % (Auto) (20-40) % [place] % (Auto) (2-11) % Eos % (Auto) (0-4) % Baso % (Auto) (0-2) % Lymph # (Auto) (1.2-4.9) X10*3/uL [place] # (Auto) (0.1-1.2) X10*3/uL Eos # (Auto) (0.0-0.4) X10*3/uL Baso # (Auto) (0.0-0.2) X10*3/uL Abs Immat Gran (auto) (0.00-0.03) X10*3/uL Absolute Neuts (auto) (2.0-8.3) x10*3/uL Absolute Nucleated RBC (0.0-0.012) X10*3/uL Nucleated RBC % (auto) (0.0-0.2) /100WBC VBG pH (7.32-7.43) VBG pCO2 mmHg VBG pO2 mmHg VBG HCO3 (22-26) mmol/L VBG O2 Saturation % VBG Base Excess mmol/L Sodium (135-145) mmol/L Potassium (3.3-5.1) mmol/L Chloride (96-108) mmol/L Carbon Dioxide (22-29) mmol/L Anion Gap (12-20) BUN (9-16) mg/dL Creatinine (0.5-1.4) mg/dL Estim Creat Clear Calc Estimated GFR POC Glucose (60-115) mg/dL Random Glucose (60-115) mg/dL Lactic Acid 1.6 (0.5-2.0) mmol/L Calcium (8.4-10.2) mg/dL Magnesium (1.6-2.6) mg/dL Total Bilirubin (0.0-1.0) mg/dL Direct Bilirubin (0.0-0.5) mg/dL AST (5-31) U/L ALT (0-31) U/L Alkaline Phosphatase (39-117) U/L Ammonia 21 (13-55) umol/L Troponin I High Sens 13.7 (<3.5-17.0) ng/L Total Protein (6.5-8.0) g/dL Albumin (3.5-5.0) g/dL Lipase (8-78) U/L TSH (0.32-4.0) uIU/mL COVID-19 ([facility]) (Negative) COVID-19 Clin Com 03/12/21 03/12/21 Range/Units 10:37 10:41 WBC (4.8-10.8) X10*3/uL RBC (4.20-5.50) X10*6/uL Hgb (12.0-16.0) g/dl Hct (37.0-47.0) % MCV (80.0-98.0) fL MCH (27.0-33.0) pg MCHC (31.0-35.0) g/dl RDW (11.0-16.0) % Plt Count (160-400) X10*3/uL MPV (9.4-12.3) fL Immature Gran % (Auto) (0.0-0.4) % Neut % (Auto) (45-73) % Lymph % (Auto) (20-40) % [place] % (Auto) (2-11) % Eos % (Auto) (0-4) % Baso % (Auto) (0-2) % Lymph # (Auto) (1.2-4.9) X10*3/uL [place] # (Auto) (0.1-1.2) X10*3/uL Eos # (Auto) (0.0-0.4) X10*3/uL Baso # (Auto) (0.0-0.2) X10*3/uL Abs Immat Gran (auto) (0.00-0.03) X10*3/uL Absolute Neuts (auto) (2.0-8.3) x10*3/uL Absolute Nucleated RBC (0.0-0.012) X10*3/uL Nucleated RBC % (auto) (0.0-0.2) /100WBC VBG pH 7.43 (7.32-7.43) VBG pCO2 50 mmHg VBG pO2 44 mmHg VBG HCO3 34 H (22-26) mmol/L VBG O2 Saturation 61.0 % VBG Base Excess 8.3 mmol/L Sodium (135-145) mmol/L Potassium (3.3-5.1) mmol/L Chloride (96-108) mmol/L Carbon Dioxide (22-29) mmol/L Anion Gap (12-20) BUN (9-16) mg/dL Creatinine (0.5-1.4) mg/dL Estim Creat Clear Calc Estimated GFR POC Glucose (60-115) mg/dL Random Glucose (60-115) mg/dL Lactic Acid (0.5-2.0) mmol/L Calcium (8.4-10.2) mg/dL Magnesium (1.6-2.6) mg/dL Total Bilirubin (0.0-1.0) mg/dL Direct Bilirubin (0.0-0.5) mg/dL AST (5-31) U/L ALT (0-31) U/L Alkaline Phosphatase (39-117) U/L Ammonia (13-55) umol/L Troponin I High Sens (<3.5-17.0) ng/L Total Protein (6.5-8.0) g/dL Albumin (3.5-5.0) g/dL Lipase (8-78) U/L TSH (0.32-4.0) uIU/mL COVID-19 ([facility]) Negative (Negative) COVID-19 Clin Com See Note ECG Data Attestation: I personally reviewed and interpreted this ECG as follows: ECG interpretation date: 03/12/21 ECG interpretation time: 13:00 Interpretation: Rate: 82 Rhythm: NSR [place]: normal Normal P waves. Normal NIKO. Normal QRS complex. ST T wave : no KRISTY nonspecific qTC: normal prior studies: no sig change from last, artifact noted The study has been interpreted contemporaneously by me. . Discharge Plan Discharge Clinical Impression: Acute hyperglycemia, EMERSON (acute kidney injury) Leukocytosis Qualifiers: Leukocytosis type: unspecified Qualified Code(s): D72.829 - Elevated white blood cell count, unspecified Abdominal pain Qualifiers: Abdominal location: epigastric Qualified Code(s): R10.13 - Epigastric pain Patient Disposition: Admitted As Inpatient
[2021-03-12 10:21] LABS: Glucose, Whole Blood 296 mg/dL (60-115)
--- NOTE | 2021-03-12 10:27 | ECG_ITS ---
Test Reason : ABDOMINAL PAIN Blood Pressure : / mmHG Vent. Rate : 082 BPM Atrial Rate : 082 BPM P-R Int : 146 ms QRS Dur : 098 ms QT Int : 316 ms P-R-T Axes : 018 078 -47 degrees QTc Int : 369 ms Normal sinus rhythm Nonspecific ST and T wave abnormality Abnormal ECG When compared with ECG of 03-JAN-2021 12:57, ST now depressed in Inferior leads ST now depressed in Lateral leads Inverted T waves have replaced nonspecific T wave abnormality in Inferior leads T wave inversion no longer evident in Anterior leads Nonspecific T wave abnormality, worse in Lateral leads Referred By: Gwen Diaz Electronically Signed By:VINICIO PELAEZ MD
[2021-03-12] MEDS: 0.9 % Sodium Chloride 500 ML IV (10:43)
[2021-03-12] MEDS: ondansetron HCL 4 MG/2 ML VIAL IVPUSH (10:43)
[2021-03-12 10:45] LABS: MANUAL DIFF FLAG NO
[2021-03-12 10:47] LABS: VBG Base Excess 8.3 mmol/L; VBG HCO3 34 mmol/L (22-26); VBG pCO2 50 mmHg; VBG pH 7.43 (7.32-7.43); VBG pO2 44 mmHg
[2021-03-12 10:47] LABS: Venous Blood Gas Refer to POC result
[2021-03-12 10:48] LABS: Basophils Percent Auto 0.2 % (0-2); Hemoglobin 11.9 g/dl (12.0-16.0); Imm Gran Abs Auto 0.09 X10*3/uL (0.00-0.03); Imm Gran Pct Auto 0.5 % (0.0-0.4); Lymphocytes Absolute Auto 1.5 X10*3/uL (1.2-4.9); Lymphocytes Percent Auto 9.2 % (20-40); Mean Corpuscular HGB Conc 31.3 g/dl (31.0-35.0); Mean Corpuscular Hemoglobin 26.5 pg (27.0-33.0); Mean Corpuscular Volume 84.6 fL (80.0-98.0); Mean Platelet Volume 11.5 fL (9.4-12.3); Monocytes Absolute Auto 0.6 X10*3/uL (0.1-1.2); Monocytes Percent Auto 3.6 % (2-11); Neutrophils Absolute Auto 14.4 x10*3/uL (2.0-8.3); Neutrophils Percent Auto 86.5 % (45-73); Platelet Count 254 X10*3/uL (160-400); Red Blood Count 4.49 X10*6/uL (4.20-5.50); Red Cell Distribution Width 16.9 % (11.0-16.0); White Blood Count 16.6 X10*3/uL (4.8-10.8)
[2021-03-12 10:54] LABS: Ammonia 21 umol/L (13-55)
[2021-03-12 10:58] LABS: Lactic Acid 1.6 mmol/L (0.5-2.0)
[2021-03-12 11:04] LABS: COVID-19 Test Negative (Negative); IDNOW Serial# 9DD0AD1C
[2021-03-12 11:06] LABS: Alanine Aminotransferase 40 U/L (0-31); Albumin Level 3.8 g/dL (3.5-5.0); Alkaline Phosphatase 129 U/L (39-117); Anion Gap 16 (12-20); Aspartate Amino Transferase 34 U/L (5-31); Bilirubin Direct 0.3 mg/dL (0.0-0.5); Bilirubin Total 0.6 mg/dL (0.0-1.0); Blood Urea Nitrogen 28 mg/dL (9-16); Calcium 9.4 mg/dL (8.4-10.2); Carbon Dioxide 28 mmol/L (22-29); Chloride 98 mmol/L (96-108); Creatinine Clr Calc Pharmacy 30.3; Estimated Glomerular Filt Rate 37; Glucose Random 379 mg/dL (60-115); Lipase 13 U/L (8-78); Magnesium 2.3 mg/dL (1.6-2.6); Potassium 5.6 mmol/L (3.3-5.1); Sodium 136 mmol/L (135-145); Total Protein 6.5 g/dL (6.5-8.0)
[2021-03-12 11:08] LABS: Troponin-I High Sensitivity 13.7 ng/L (<3.5-17.0)
--- NOTE | 2021-03-12 11:22 | PHA.MEDREC ---
Pharmacy Consult ? Medication Reconciliation Pharmacy has completed the medication reconciliation. Patient has AMS. Patient use med boxes from [facility]. She was also at [facility] but stop 01/25/2021. Used the old medications list and fill history from pharmacy to complete med rec. Talked with pharmacy to confirm insulin doses. Sammi Sotelo, KristiD
[2021-03-12 11:24] LABS: Thyroid Stimulating Hormone 7.92 uIU/mL (0.32-4.0)
[2021-03-12] MEDS: Insulin Regular, Human 100 UNIT/ML 3 ML VIAL IVPUSH (11:54)
[2021-03-12] MEDS: 0.9 % Sodium Chloride 1,000 ML 999 ML IV (11:55)
[2021-03-12] MEDS: Piperacillin Sodium/Tazobactam 3.375 GM in 0.9 % Sodium Chloride 50 ML IV ×2 (12:35→18:50)
[2021-03-12 12:52] LABS: Glucose, Whole Blood 302 mg/dL (60-115)
--- NOTE | 2021-03-12 13:08 | PM.HPGS ---
History of Present Illness History of Present Illness Date of Service: 03/14/21 Chief complaint: INTRA ABDOMINAL HEMATOMA VERSUS ABSCESS Narrative: Brandie Santana is a 71 year old female who was brought to the emergency room early this morning because of nausea and abdominal pain. She uncertain as to how long she has been having this but she says she has been experiencing this for couple of days at least. She denies any fever at home. She is familiar to me as I had done a laparoscopic cholecystectomy for acute cholecystitis last 01/04/2021. At had time, she had hydrops with severely inflamed and purulent gallbladder wall. I had actually seen her in the office for follow-up thereafter and she had been doing well. She had a CAT scan in the ER showing heterogenous fluid collection in the gallbladder fossa. Review of Systems Constitutional: Constitutional: Denies chills and Denies fever(s) Cardiovascular: Cardiovascular: Denies chest pain at rest Gastrointestinal: Gastrointestinal: Denies hematochezia Genitourinary: Genitourinary: Denies difficulty voiding Neurologic: Denies behavioral changes Psychiatric: Psychiatric: Denies behavioral changes [facility] Past Medical History Medical History Anxiety Atherosclerotic cardiovascular disease Cholecystitis Depression Diabetes type 1, uncontrolled Dyslipidemia Elevated liver function tests Essential hypertension Fibromyalgia Folliculitis Rona's disease History of myocardial infarction Hyperlipidemia, unspecified Hyperparathyroidism due to vitamin D deficiency Hypertension 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 Hypothyroidism Intestinal malabsorption following gastrectomy NSTEMI (non-ST elevated myocardial infarction) Obesity (BMI 30-39.9) Family History Family History Father No problems noted. Mother No problems noted. Surgical History Surgical History H/O gastric bypass History of bladder suspension procedure History of laparoscopic cholecystectomy Hx of appendectomy Status post laser cataract surgery of both eyes Social History Social History Household Members: Unknown / Unable to assess Housing: Unknown / Unable to assess Unable to assess alcohol history related to: Unable to respond Alcohol intake: never Patient Tobacco Use Status: Never used Tobacco Use of substances other than those prescribed or required for medical reasons: No Currently Displaying Signs/Symptoms of Drug Intoxication Withdrawal: No Advance Directives: No Advance Directives Information Provided: Yes Do you have thoughts of harming others: None Do you have a plan to hurt others: No Plan Recently lost weight without trying: No service: No Current occupational status: disabled Meds Allergies Allergy/AdvReac Type Severity Reaction Status Date / Time lorazepam [LORAZEPAM] Allergy Severe DELIRIUM Verified 02/23/21 10:34 celecoxib [From Celebrex] Allergy Intermediate ITCHING Verified 02/23/21 10:34 tramadol [TRAMADOL] Allergy Intermediate ITCHING Verified 02/23/21 10:34 zolpidem [Ambien] Allergy Unknown unknown Verified 02/23/21 10:34 Active Medications: Current Medications Heparin Sodium (Porcine) (Heparin Sodium,Porcine 5,000 Unit/Ml Vial) 5,000 unit SUBCUT Q12H SARAH Sodium Chloride (Ns) 1,000 mls @ 100 mls/hr IVCONT .Q10H SARAH Piperacillin Sod/Tazobactam (Sod 3.375 gm/ Sodium Chloride) 50 mls @ 100 mls/hr IV Q6H SARAH Oxycodone HCl (Oxycodone Hcl Immed Release 5 Mg Tablet) 5 mg PO Q6H PRN PRN Reason: Pain, Moderate (Pain Scale 4-6 Pharmacy Consult (Consult Rx Perform Med Rec) 1 each MISCELLANE ONCE PRN PRN Reason: Consult order Sodium Chloride (0.9 % Sodium Chloride Flush 3 Ml Syringe) 3 ml IVFLUSH QSHIFT SARAH Home Medications Medication Instructions Recorded Confirmed Last Taken Type venlafaxine 150 mg 150 mg PO DAILY cap 01/28/20 03/12/21 Unknown History capsule,extended release 24 hr (Effexor XR) aripiprazole 20 mg tablet 20 mg PO BEDTIME 02/17/20 03/12/21 Unknown History blood sugar diagnostic #10 ea 02/17/20 02/23/21 Unknown History gabapentin 100 mg capsule 100 mg PO BID 02/17/20 03/12/21 Unknown History hydroxyzine HCl 10 mg tablet 10 mg PO Q8H PRN tab 02/22/20 03/12/21 Unknown History prazosin 2 mg capsule 4 mg PO BEDTIME cap 05/12/20 03/12/21 Unknown History diclofenac sodium 75 mg 75 mg PO BID 08/28/20 03/12/21 Unknown History tablet,delayed release esomeprazole magnesium 40 mg 40 mg PO DAILY 08/28/20 03/12/21 Unknown History capsule,delayed release clonazepam 0.5 mg tablet 1 tab PO Q8H PRN 01/02/21 03/12/21 Unknown History insulin aspart 2 - 15 unit SUBCUT QIDACHS PRN 01/02/21 03/12/21 Unknown History (niacinamide)(U-100) 100 unit/mL(3 mL) subcutaneous pen (Fiasp FlexTouch U-100 Insulin) sucralfate 1 gram tablet 1 tab PO BID 01/02/21 03/12/21 Unknown History calcium citrate 200 mg (950 mg) 400 mg PO BID@1200,1800 03/12/21 03/12/21 Unknown History tablet insulin degludec 100 unit/mL (3 12 unit SUBCUT DAILY 03/12/21 03/12/21 Unknown History mL) subcutaneous pen (Tresiba FlexTouch U-100 insulin) Physical Exam Vital Signs: Vital Signs: Last Vital Signs Temp 98.3 F 03/12/21 12:31 Pulse 64 03/12/21 12:31 Resp 20 03/12/21 11:09 BP 130/53 L 03/12/21 12:31 Pulse Ox 96 03/12/21 10:06 Body Mass Index 23.4 Const: Other: Appears frail, some slowness of mentation, not new General: No comfortable or no acute distress Resp: Effort & Inspection: normal respiratory effort Auscultation: clear to auscultation bilaterally GI: Other: Mild tenderness in epigastric area Palpation (GI): Soft to palpation, not firm and no guarding Extrem: General: No edema Results Results Labs: Short CBC 03/12/21 Range/Units 10:36 WBC 16.6 H (4.8-10.8) X10*3/uL Hgb 11.9 L (12.0-16.0) g/dl Hct 38.0 (37.0-47.0) % Plt Count 254 (160-400) X10*3/uL BMP 03/12/21 10:36 Sodium 136 Potassium 5.6 H D Chloride 98 Carbon Dioxide 28 BUN 28 H D Creatinine 1.41 H Calcium 9.4 D Liver Function 03/12/21 Range/Units 10:36 Total Bilirubin 0.6 (0.0-1.0) mg/dL Direct Bilirubin 0.3 (0.0-0.5) mg/dL AST 34 H D (5-31) U/L ALT 40 H (0-31) U/L Alkaline Phosphatase 129 H D (39-117) U/L Albumin 3.8 D (3.5-5.0) g/dL Abdomen CT scan report/results: report reviewed and image reviewed CT scan - pelvis: report reviewed and image reviewed Assessment and Plan (1) Intra-abdominal abscess: Status: Acute 71-year-old female admitted to the hospital because of epigastric pain. I have reviewed her CAT scan with the radiologist Dr. Aguila. This shows a heterogenous 3 x 4 cm collection the gallbladder fossa that is consistent with a complex abscess versus infected hematoma. The fluid component seems to be small to be aspirated at this time. She did have purulent cholecystitia last January 04, 2021 and had undergone laparoscopic cholecystectomy for this. She will therefore be started on IV antibiotics. I plan on repeating the CT scan in about 48 hours. Her blood sugars and creatinine are elevated. I have started her on fluids for hydration. I have consulted the hospitalist for her diabetes. I explained the plan to the patient. Quality Stroke Does the patient have a stroke diagnosis?: No VTE Prior VTE?: No VTE Risk Level:: Medical - moderate - high VTE Device Contraindication: N/A - Device Ordered VTE Drug Contraindication: N/A - Med Ordered Procedures Date of Service Date of Service: 03/12/21
[2021-03-12] MEDS: oxyCODONE HCl Immed Release 5 MG TABLET PO (13:11)
[2021-03-12] MEDS: Heparin Sodium,Porcine 5,000 UNIT/ML VIAL 5000 UNIT SUBCUT (13:12)
[2021-03-12] MEDS: 0.9 % Sodium Chloride 1,000 ML 100 ML IVCONT ×2 (13:12→22:09)
--- NOTE | 2021-03-12 13:16 | PC.NURSE ---
pt awake and alert, oriented to person and place, slow to respond. use of medical record librarians teacher needed. pt reported 8/10 abd pain. requesting pain medication. explained to pt that she will be admit to the hospital, she is aware.
--- NOTE | 2021-03-12 13:46 | P.CONHOSP_ITS ---
History of Present Illness Data of Consult Service Date: 03/12/21 Requesting physician: Tay Pelayo Primary Care Provider: Pascual Darnell MD HPI Reason for consult: Abdominal pain 71 year old women admitted by general surgery for Intra-abdominal Hematoma versus abscess. She has a fever and leukocytosis. He is confused but is oriented to name. She reported vomiting and right upper quadrant abdominal pain. She was started on Zosyn and given Insulin for elevated blood sugar. vital signs stable. Review of Systems Review of Systems: Denies any recent fever chills or decrease in appetite respiratory denies any shortness of breath coverage production cardiovascular is adjustment of any PND or edema gastrointestinal See HPI genitourinary denies any dysuria frequency or hematuria musculoskeletal denies any joint pain or swelling neuropsych denies any weakness or seizures all other systems reviewed are negative [facility] Medical History (Updated 03/12/21 @ 15:02 by Sara Guthrie NP) Anxiety Atherosclerotic cardiovascular disease Cholecystitis Depression Diabetes type 1, uncontrolled Dyslipidemia Elevated liver function tests Essential hypertension Fibromyalgia Folliculitis Rona's disease History of myocardial infarction Hyperlipidemia, unspecified Hyperparathyroidism due to vitamin D deficiency Hypertension 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 Hypothyroidism Intestinal malabsorption following gastrectomy NSTEMI (non-ST elevated myocardial infarction) Obesity (BMI 30-39.9) Family History Father No problems noted. Mother No problems noted. Surgical History (Updated 03/12/21 @ 13:48 by Sara Guthrie NP) H/O gastric bypass History of bladder suspension procedure History of laparoscopic cholecystectomy Hx of appendectomy Status post laser cataract surgery of both eyes Social History Alcohol intake: never Patient Tobacco Use Status: Never used Tobacco Advance Directives: No Advance Directives Information Provided: Yes service: No Current occupational status: disabled Meds Allergies Allergy/AdvReac Type Severity Reaction Status Date / Time lorazepam [LORAZEPAM] Allergy Severe DELIRIUM Verified 02/23/21 10:34 celecoxib [From Celebrex] Allergy Intermediate ITCHING Verified 02/23/21 10:34 tramadol [TRAMADOL] Allergy Intermediate ITCHING Verified 02/23/21 10:34 zolpidem [Ambien] Allergy Unknown unknown Verified 02/23/21 10:34 Active Medications: Current Medications Heparin Sodium (Porcine) (Heparin Sodium,Porcine 5,000 Unit/Ml Vial) 5,000 unit SUBCUT Q12H [facility] Last Admin: 03/12/21 13:12 Dose: 5,000 unit Documented by: Sodium Chloride (Ns) 1,000 mls @ 100 mls/hr IVCONT .Q10H [facility] Last Admin: 03/12/21 13:12 Dose: 100 mls/hr Documented by: Piperacillin Sod/Tazobactam (Sod 3.375 gm/ Sodium Chloride) 50 mls @ 100 mls/hr IV Q6H [facility] Oxycodone HCl (Oxycodone Hcl Immed Release 5 Mg Tablet) 5 mg PO Q6H PRN PRN Reason: Pain, Moderate (Pain Scale 4-6 Last Admin: 03/12/21 13:11 Dose: 5 mg Documented by: Pharmacy Consult (Consult Rx Perform Med Rec) 1 each MISCELLANE ONCE PRN PRN Reason: Consult order Sodium Chloride (0.9 % Sodium Chloride Flush 3 Ml Syringe) 3 ml IVFLUSH QSHIFT [facility] Home Medications Medication Instructions Recorded Confirmed Last Taken Type venlafaxine 150 mg 150 mg PO DAILY cap 01/28/20 03/12/21 Unknown History capsule,extended release 24 hr (Effexor XR) aripiprazole 20 mg tablet 20 mg PO BEDTIME 02/17/20 03/12/21 Unknown History blood sugar diagnostic #10 ea 02/17/20 02/23/21 Unknown History gabapentin 100 mg capsule 100 mg PO BID 02/17/20 03/12/21 Unknown History hydroxyzine HCl 10 mg tablet 10 mg PO Q8H PRN tab 02/22/20 03/12/21 Unknown History prazosin 2 mg capsule 4 mg PO BEDTIME cap 05/12/20 03/12/21 Unknown History diclofenac sodium 75 mg 75 mg PO BID 08/28/20 03/12/21 Unknown History tablet,delayed release esomeprazole magnesium 40 mg 40 mg PO DAILY 08/28/20 03/12/21 Unknown History capsule,delayed release clonazepam 0.5 mg tablet 1 tab PO Q8H PRN 01/02/21 03/12/21 Unknown History insulin aspart 2 - 15 unit SUBCUT QIDACHS PRN 01/02/21 03/12/21 Unknown History (niacinamide)(U-100) 100 unit/mL(3 mL) subcutaneous pen (Fiasp FlexTouch U-100 Insulin) sucralfate 1 gram tablet 1 tab PO BID 01/02/21 03/12/21 Unknown History calcium citrate 200 mg (950 mg) 400 mg PO BID@1200,1800 03/12/21 03/12/21 Unknown History tablet insulin degludec 100 unit/mL (3 12 unit SUBCUT DAILY 03/12/21 03/12/21 Unknown History mL) subcutaneous pen (Tresiba FlexTouch U-100 insulin) Physical Exam Vital Signs and Narrative: Vital Signs: Last Vital Signs Temp 98.3 F 03/12/21 12:31 Pulse 71 03/12/21 13:10 Resp 22 H 03/12/21 13:10 BP 128/48 L 03/12/21 13:10 Pulse Ox 96 03/12/21 10:06 Body Mass Index 23.4 Appearing in no acute distress head is normocephalic atraumatic eyes pupils are PERRLA sclera is anicteric mouth throat mucous membranes are intact and moist neck is supple no lymphadenopathy, no JVD noted lung sounds are clear to auscultation heart regular rate rhythm, clear S1, S2 positive bowel sounds, RUQ tenderness neuro patient is alert oriented to name only Results Labs CBC and Chem 7: 03/12/21 10:36 03/12/21 10:36 Labs: Laboratory Results - last 24 hr 03/12/21 03/12/21 03/12/21 10:17 10:36 10:36 MCV 84.6 MCH 26.5 L MCHC 31.3 RDW 16.9 H Plt Count 254 MPV 11.5 Immature Gran % (Auto) 0.5 H Neut % (Auto) 86.5 H Lymph % (Auto) 9.2 L Roberts % (Auto) 3.6 Eos % (Auto) 0.0 Baso % (Auto) 0.2 Lymph # (Auto) 1.5 Roberts # (Auto) 0.6 Eos # (Auto) 0.0 Baso # (Auto) 0.0 Abs Immat Gran (auto) 0.09 H Absolute Neuts (auto) 14.4 H Absolute Nucleated RBC 0.000 Nucleated RBC % (auto) 0.0 VBG pH VBG pCO2 VBG pO2 VBG HCO3 VBG O2 Saturation VBG Base Excess Anion Gap 16 Estim Creat Clear Calc 30.3 Estimated GFR 37 POC Glucose 296 H Random Glucose 379 H* Lactic Acid Calcium 9.4 D Magnesium 2.3 Total Bilirubin 0.6 Direct Bilirubin 0.3 AST 34 H D ALT 40 H Alkaline Phosphatase 129 H D Ammonia Troponin I High Sens Total Protein 6.5 D Albumin 3.8 D Lipase 13 TSH 7.92 H COVID-19 ([facility]) COVID-19 Clin Com 03/12/21 03/12/21 03/12/21 10:36 10:36 10:36 MCV MCH MCHC RDW Plt Count MPV Immature Gran % (Auto) Neut % (Auto) Lymph % (Auto) Roberts % (Auto) Eos % (Auto) Baso % (Auto) Lymph # (Auto) Roberts # (Auto) Eos # (Auto) Baso # (Auto) Abs Immat Gran (auto) Absolute Neuts (auto) Absolute Nucleated RBC Nucleated RBC % (auto) VBG pH VBG pCO2 VBG pO2 VBG HCO3 VBG O2 Saturation VBG Base Excess Anion Gap Estim Creat Clear Calc Estimated GFR POC Glucose Random Glucose Lactic Acid 1.6 Calcium Magnesium Total Bilirubin Direct Bilirubin AST ALT Alkaline Phosphatase Ammonia 21 Troponin I High Sens 13.7 Total Protein Albumin Lipase TSH COVID-19 ([facility]) COVID-19 Clin Com 03/12/21 03/12/21 03/12/21 10:37 10:41 12:39 MCV MCH MCHC RDW Plt Count MPV Immature Gran % (Auto) Neut % (Auto) Lymph % (Auto) Roberts % (Auto) Eos % (Auto) Baso % (Auto) Lymph # (Auto) Roberts # (Auto) Eos # (Auto) Baso # (Auto) Abs Immat Gran (auto) Absolute Neuts (auto) Absolute Nucleated RBC Nucleated RBC % (auto) VBG pH 7.43 VBG pCO2 50 VBG pO2 44 VBG HCO3 34 H VBG O2 Saturation 61.0 VBG Base Excess 8.3 Anion Gap Estim Creat Clear Calc Estimated GFR POC Glucose 302 H Random Glucose Lactic Acid Calcium Magnesium Total Bilirubin Direct Bilirubin AST ALT Alkaline Phosphatase Ammonia Troponin I High Sens Total Protein Albumin Lipase TSH COVID-19 ([facility]) Negative COVID-19 Clin Com See Note Imaging Radiologist's Impressions: Impressions Abdomen/Pelvis CT 03/12/21 10:27 IMPRESSION: 3 x 4 cm heterogeneous fluid collection in the gallbladder fossa and small amount of air. Small abscess or infected hematoma should be considered. Trace ascites seen surrounding the liver. If there is clinical suspicion of a bile leak, HIDA scan would be recommended. No biliary duct dilatation. Stool throughout the colon suggestive of constipation. Postoperative changes from gastric bypass surgery. Fleischner guidelines were followed. Assessment and Plan (1) Intra-abdominal abscess: Status: Acute (2) Sepsis: Status: Acute (3) Anemia: Status: Acute (4) Essential hypertension: Status: Acute (5) Diabetes: Status: Acute 71 year old women admitted by general surgery Intra-abdominal Hematoma versus abscess Sepsis secondary to Intra-abdominal Hematoma versus abscess Management as per surgical team Continue Zosyn Diabetes. sliding scale ADA diet, NPO for surgery Anemia no bleeding stable HH CAD hold plavix continue BB HTN Amlodipine if she needs to go to OR, hold to avoid hypotension Attending Dr. Holguin Full code
[2021-03-12 14:06] LABS: Glucose, Whole Blood 228 mg/dL (60-115)
--- NOTE | 2021-03-12 16:13 | PM.EVENT ---
Event Note Date of Service: 03/12/21 Event Note: Says she feels better. She says she has a little bit of pain abdomen Stable vital sign Abdomen soft, minimal tenderness, no guarding rebound, nondistended She does not appear septic Continue IV antibiotics Hospitalist consulted for diabetes
--- NOTE | 2021-03-12 17:07 | P.EN_ITS ---
Event Note Date of Service: 03/14/21
--- NOTE | 2021-03-12 17:07 | PM.EVENT ---
Event Note Date of Service: 03/14/21
[2021-03-12 17:08] LABS: Glucose, Whole Blood 270 mg/dL (60-115)
[2021-03-12 19:11] LABS: Glucose, Whole Blood 305 mg/dL (60-115)
--- NOTE | 2021-03-12 19:44 | PC.NURSE ---
pt with family at bedside. pt POC 305, messaged for insulin. pt continues to sit up in bed and put her legs through side rails of bed. she continues to appear vacant but remains alert to person and place.
[2021-03-12 20:45] LABS: Appearance Urine CLEAR; Color Urine STRAW; Glucose Urine UA 500 MG/DL (NEG); Leukocyte Esterase Urine NEG (NEG); Nitrite Urine NEG (NEG); Urine Blood NEG (NEG); Urine Ketones 15 MG/DL (NEG); Urine Protein NEG (NEG-TRACE)
--- NOTE | 2021-03-12 21:15 | PC.NURSE ---
report given, informed accepting RN of message sent to Dr. Klein r/t pts POC of 305 and need for insulin order. continue to await order.
[2021-03-12] MEDS: ARIPiprazole 20 MG TABLET PO (21:24)
[2021-03-12] MEDS: carvediloL 6.25 MG TABLET PO (21:24)
[2021-03-12] MEDS: Gabapentin 100 MG CAPSULE PO (21:24)
[2021-03-12 21:37] LABS: Glucose, Whole Blood 328 mg/dL (60-115)
--- NOTE | 2021-03-12 22:40 | MHC.CM.PN ---
CM attempted to meet with patient. Pt is Cam[place] speaking only. Waiting for medical receptionist medical assistant, Enrique. Pt transferred to floor before medical nurse arrived. CM to follow for d/c needs.
[2021-03-13] VITALS (9 sets, daily range): BP systolic 132–169; BP diastolic 62–76; PULSE 64–84; RESP 14–18; TEMP 36.1–36.8; O2SAT 97–99
[2021-03-13] MEDS: Piperacillin Sodium/Tazobactam 3.375 GM in 0.9 % Sodium Chloride 50 ML IV ×4 (00:28→17:45)
[2021-03-13] MEDS: Heparin Sodium,Porcine 5,000 UNIT/ML VIAL 5000 UNIT SUBCUT ×2 (00:29→12:08)
[2021-03-13 06:20] LABS: Basophils Percent Auto 0.3 % (0-2); MANUAL DIFF FLAG SCAN; Mean Corpuscular Volume 83.8 fL (80.0-98.0); SCAN SMEAR FLAG 1
[2021-03-13 06:22] LABS: Hematocrit 34.6 % (37.0-47.0); Hemoglobin 11.1 g/dl (12.0-16.0); Imm Gran Abs Auto 0.08 X10*3/uL (0.00-0.03); Imm Gran Pct Auto 0.5 % (0.0-0.4); Lymphocytes Absolute Auto 2.3 X10*3/uL (1.2-4.9); Lymphocytes Percent Auto 15.4 % (20-40); Mean Corpuscular HGB Conc 32.1 g/dl (31.0-35.0); Mean Corpuscular Hemoglobin 26.9 pg (27.0-33.0); Mean Platelet Volume 10.5 fL (9.4-12.3); Monocytes Absolute Auto 0.9 X10*3/uL (0.1-1.2); Monocytes Percent Auto 6.1 % (2-11); Neutrophils Absolute Auto 11.8 x10*3/uL (2.0-8.3); Neutrophils Percent Auto 77.7 % (45-73); Platelet Count 145 X10*3/uL (160-400); Red Blood Count 4.13 X10*6/uL (4.20-5.50); Red Cell Distribution Width 16.8 % (11.0-16.0); White Blood Count 15.2 X10*3/uL (4.8-10.8)
[2021-03-13 06:24] LABS: PLT ABN DIST 1
[2021-03-13 06:36] LABS: Anion Gap 17 (12-20); Blood Urea Nitrogen 23 mg/dL (9-16); Calcium 8.4 mg/dL (8.4-10.2); Carbon Dioxide 22 mmol/L (22-29); Chloride 105 mmol/L (96-108); Creatinine Clr Calc Pharmacy 37.7; Estimated Glomerular Filt Rate 47; Potassium 4.2 mmol/L (3.3-5.1); Sodium 140 mmol/L (135-145)
[2021-03-13 06:38] LABS: SLIDE REVIEW VERIFIED
[2021-03-13 06:40] LABS: Glucose Random 384 mg/dL (60-115)
[2021-03-13] MEDS: Insulin Lispro 100 UNIT/ML 3 ML VIAL SUBCUT ×4 (06:44→22:16)
[2021-03-13] MEDS: Gabapentin 100 MG CAPSULE PO ×2 (08:16→22:15)
[2021-03-13] MEDS: amLODIPine Besylate 10 MG TABLET PO (08:16)
[2021-03-13] MEDS: carvediloL 6.25 MG TABLET PO ×2 (08:16→22:15)
[2021-03-13] MEDS: Furosemide 20 MG TABLET PO (08:16)
[2021-03-13] MEDS: Venlafaxine HCl ER 150 MG CAP.ER.24H PO (08:16)
--- NOTE | 2021-03-13 08:30 | PM.PNGS ---
Subjective Subjective Date of Service: 03/13/21 <Lashawn Gallegos PA-C - Last Filed: 03/13/21 10:08> 03/13/21 <Tay Pelayo MD - Last Filed: 03/13/21 10:52> Interval history: Seen with naprapath. Very difficulty to obtain answers from. Still having epigastric pain but better. Denies nausea/vomiting. Tolerating diet. <Lashawn Gallegos PA-C - Last Filed: 03/13/21 10:08> Physical Exam Vital Signs: Vital Signs: Last Vital Signs Temp 97.0 F 03/13/21 07:51 Pulse 84 03/13/21 08:16 Resp 17 03/13/21 07:51 BP 141/66 H 03/13/21 08:16 Pulse Ox 97 03/13/21 07:51 Body Mass Index 23.4 <Lashawn Gallegos PA-C - Last Filed: 03/13/21 10:08> Const: General: comfortable, no acute distress and alert <Lashawn Gallegos PA-C - Last Filed: 03/13/21 10:08> Resp: Effort & Inspection: normal respiratory effort <Lashawn Gallegos PA-C - Last Filed: 03/13/21 10:08> Cardio: Rate: regular rate <Lashawn Gallegos PA-C - Last Filed: 03/13/21 10:08> GI: Inspection: No distended and Yes incision (well healed incisions from recent lap olman) <Lashawn Gallegos PA-C - Last Filed: 03/13/21 10:08> Palpation (GI): Soft to palpation, Tenderness to palpation present (GI) in the epigastrum (very mild), no guarding and not rigid <Lashawn Gallegos PA-C - Last Filed: 03/13/21 10:08> Percussion: Yes normal to percussion <Lashawn Gallegos PA-C - Last Filed: 03/13/21 10:08> Skin: Other: warm and dry <CARLOS Minaya Last Filed: 03/13/21 10:08> General skin exam: no rashes or lesions noted <Lashawn Gallegos PA-C - Last Filed: 03/13/21 10:08> Extrem: General: Yes no clubbing, cyanosis or edema <Lashawn Gallegos PA-C - Last Filed: 03/13/21 10:08> Psych: Affect: Other affect and mood findings present (flat) <Lashawn Gallegos PA-C - Last Filed: 03/13/21 10:08> Objective Data Active Medications Amlodipine Besylate (Amlodipine Besylate 10 Mg Tablet) 10 mg PO DAILY [facility]; Protocol Last Admin: 03/13/21 08:16 Dose: 10 mg Documented by: JAREK Aripiprazole (Aripiprazole 20 Mg Tablet) 20 mg PO BEDTIME [facility] Last Admin: 03/12/21 21:24 Dose: 20 mg Documented by: FARHANA Carvedilol (Carvedilol 6.25 Mg Tablet) 6.25 mg PO BID [facility]; Protocol Last Admin: 03/13/21 08:16 Dose: 6.25 mg Documented by: JAREK Clonazepam (Clonazepam 0.5 Mg Tablet) 0.5 mg PO Q8H PRN PRN Reason: anxiety Dextrose (Dextrose 50 % 25 Gm/50 Ml Vial) 25 gm IVPUSH Q15M PRN; Protocol PRN Reason: per Hypoglycemia Standing Ord. Furosemide (Furosemide 20 Mg Tablet) 20 mg PO DAILY [facility]; Protocol Last Admin: 03/13/21 08:16 Dose: 20 mg Documented by: JAREK Gabapentin (Gabapentin 100 Mg Capsule) 100 mg PO BID [facility] Last Admin: 03/13/21 08:16 Dose: 100 mg Documented by: JAREK Glucose (Glucose Gel 15 Gm Gel..Gram.) 15 gm PO Q15M PRN; Protocol PRN Reason: per Hypoglycemia Standing Ord. Heparin Sodium (Porcine) (Heparin Sodium,Porcine 5,000 Unit/Ml Vial) 5,000 unit SUBCUT Q12H [facility] Last Admin: 03/13/21 00:29 Dose: 5,000 unit Documented by: MEMERISCatie Hydroxyzine HCl (Hydroxyzine Hcl 10 Mg Tablet) 10 mg PO Q8H PRN PRN Reason: Anxiety Sodium Chloride (Ns) 1,000 mls @ 100 mls/hr IVCONT .Q10H [facility] Last Admin: 03/13/21 08:15 Dose: Not Given Documented by: JAREK Non-Admin Reason: IV Running Piperacillin Sod/Tazobactam (Sod 3.375 gm/ Sodium Chloride) 50 mls @ 100 mls/hr IV Q6H [facility] Last Infusion: 03/13/21 06:46 Dose: 0 mls/hr Documented by: JOSESITO Insulin Human Lispro (Insulin Lispro 100 Unit/Ml 3 Ml Vial) 0 unit SUBCUT QIDACHS [facility]; Protocol Last Admin: 03/13/21 06:44 Dose: 10 unit Documented by: JOSESITO Morphine Sulfate (Morphine Sulfate 2 Mg/Ml Cartridge) 1 mg IVPUSH Q3H PRN; Protocol PRN Reason: Pain, Severe (Pain Scale 7-10) Oxycodone HCl (Oxycodone Hcl Immed Release 5 Mg Tablet) 5 mg PO Q6H PRN PRN Reason: Pain, Moderate (Pain Scale 4-6 Last Admin: 03/12/21 13:11 Dose: 5 mg Documented by: FARHANA Pharmacy Consult (Consult Rx Perform Med Rec) 1 each MISCELLANE ONCE PRN PRN Reason: Consult order Sodium Chloride (0.9 % Sodium Chloride Flush 3 Ml Syringe) 3 ml IVFLUSH QSHIFT [facility] Last Admin: 03/13/21 07:20 Dose: Not Given Documented by: JAREK Non-Admin Reason: IV Running Venlafaxine HCl (Venlafaxine Hcl Er 150 Mg Cap.Er.24h) 150 mg PO DAILY [facility] Last Admin: 03/13/21 08:16 Dose: 150 mg Documented by: JAREK <Lashawn Gallegos PA-C - Last Filed: 03/13/21 10:08> Labs CBC & Chem 7: : 03/13/21 06:00 03/13/21 06:00 <Lashawn Gallegos PA-C - Last Filed: 03/13/21 10:08> Labs: Laboratory Results - last 24 hr 03/12/21 03/12/21 03/12/21 10:17 10:36 10:36 MCV 84.6 MCH 26.5 L MCHC 31.3 RDW 16.9 H Plt Count 254 MPV 11.5 Immature Gran % (Auto) 0.5 H Neut % (Auto) 86.5 H Lymph % (Auto) 9.2 L Tyler % (Auto) 3.6 Eos % (Auto) 0.0 Baso % (Auto) 0.2 Lymph # (Auto) 1.5 Tyler # (Auto) 0.6 Eos # (Auto) 0.0 Baso # (Auto) 0.0 Abs Immat Gran (auto) 0.09 H Absolute Neuts (auto) 14.4 H Absolute Nucleated RBC 0.000 Nucleated RBC % (auto) 0.0 Smear Tech's Comments VBG pH VBG pCO2 VBG pO2 VBG HCO3 VBG O2 Saturation VBG Base Excess Anion Gap 16 Estim Creat Clear Calc 30.3 Estimated GFR 37 POC Glucose 296 H Random Glucose 379 H* Lactic Acid Calcium 9.4 D Magnesium 2.3 Total Bilirubin 0.6 Direct Bilirubin 0.3 AST 34 H D ALT 40 H Alkaline Phosphatase 129 H D Ammonia Troponin I High Sens Total Protein 6.5 D Albumin 3.8 D Lipase 13 TSH 7.92 H Urine Color Urine Appearance Urine pH Ur Specific [place] Urine Protein Urine Glucose (UA) Urine Ketones Urine Blood Urine Nitrite Ur Leukocyte Esterase COVID-19 ([facility]) [employer] 03/12/21 03/12/21 03/12/21 10:36 10:36 10:36 MCV MCH MCHC RDW Plt Count MPV Immature Gran % (Auto) Neut % (Auto) Lymph % (Auto) [place] % (Auto) Eos % (Auto) Baso % (Auto) Lymph # (Auto) Tyler # (Auto) Eos # (Auto) Baso # (Auto) Abs Immat Gran (auto) Absolute Neuts (auto) Absolute Nucleated RBC Nucleated RBC % (auto) Smear Tech's Comments VBG pH VBG pCO2 VBG pO2 VBG HCO3 VBG O2 Saturation VBG Base Excess Anion Gap Estim Creat Clear Calc Estimated GFR POC Glucose Random Glucose Lactic Acid 1.6 Calcium Magnesium Total Bilirubin Direct Bilirubin AST ALT Alkaline Phosphatase Ammonia 21 Troponin I High Sens 13.7 Total Protein Albumin Lipase TSH Urine Color Urine Appearance Urine pH Ur Specific [place] Urine Protein Urine Glucose (UA) Urine Ketones Urine Blood Urine Nitrite Ur Leukocyte Esterase COVID-19 ([facility]) [employer] 03/12/21 03/12/21 03/12/21 10:37 10:41 12:39 MCV MCH MCHC RDW Plt Count MPV Immature Gran % (Auto) Neut % (Auto) Lymph % (Auto) Tyler % (Auto) Eos % (Auto) Baso % (Auto) Lymph # (Auto) Tyler # (Auto) Eos # (Auto) Baso # (Auto) Abs Immat Gran (auto) Absolute Neuts (auto) Absolute Nucleated RBC Nucleated RBC % (auto) Smear Tech's Comments VBG pH 7.43 VBG pCO2 50 VBG pO2 44 VBG HCO3 34 H VBG O2 Saturation 61.0 VBG Base Excess 8.3 Anion Gap Estim Creat Clear Calc Estimated GFR POC Glucose 302 H Random Glucose Lactic Acid Calcium Magnesium Total Bilirubin Direct Bilirubin AST ALT Alkaline Phosphatase Ammonia Troponin I High Sens Total Protein Albumin Lipase TSH Urine Color Urine Appearance Urine pH Ur Specific [place] Urine Protein Urine Glucose (UA) Urine Ketones Urine Blood Urine Nitrite Ur Leukocyte Esterase COVID-19 ([facility]) Negative [employer] See Note 03/12/21 03/12/21 03/12/21 14:02 17:04 19:06 MCV MCH MCHC RDW Plt Count MPV Immature Gran % (Auto) Neut % (Auto) Lymph % (Auto) [place] % (Auto) Eos % (Auto) Baso % (Auto) Lymph # (Auto) Tyler # (Auto) Eos # (Auto) Baso # (Auto) Abs Immat Gran (auto) Absolute Neuts (auto) Absolute Nucleated RBC Nucleated RBC % (auto) Smear Tech's Comments VBG pH VBG pCO2 VBG pO2 VBG HCO3 VBG O2 Saturation VBG Base Excess Anion Gap Estim Creat Clear Calc Estimated GFR POC Glucose 228 H 270 H 305 H Random Glucose Lactic Acid Calcium Magnesium Total Bilirubin Direct Bilirubin AST ALT Alkaline Phosphatase Ammonia Troponin I High Sens Total Protein Albumin Lipase TSH Urine Color Urine Appearance Urine pH Ur Specific [place] Urine Protein Urine Glucose (UA) Urine Ketones Urine Blood Urine Nitrite Ur Leukocyte Esterase COVID-19 ([facility]) [employer] 03/12/21 03/12/21 03/13/21 20:28 21:34 06:00 MCV 83.8 MCH 26.9 L MCHC 32.1 RDW 16.8 H Plt Count 145 L D MPV 10.5 Immature Gran % (Auto) 0.5 H Neut % (Auto) 77.7 H Lymph % (Auto) 15.4 L Tyler % (Auto) 6.1 Eos % (Auto) 0.0 Baso % (Auto) 0.3 Lymph # (Auto) 2.3 Tyler # (Auto) 0.9 Eos # (Auto) 0.0 Baso # (Auto) 0.0 Abs Immat Gran (auto) 0.08 H Absolute Neuts (auto) 11.8 H Absolute Nucleated RBC 0.000 Nucleated RBC % (auto) 0.0 Smear Tech's Comments VERIFIED VBG pH VBG pCO2 VBG pO2 VBG HCO3 VBG O2 Saturation VBG Base Excess Anion Gap Estim Creat Clear Calc Estimated GFR POC Glucose 328 H Random Glucose Lactic Acid Calcium Magnesium Total Bilirubin Direct Bilirubin AST ALT Alkaline Phosphatase Ammonia Troponin I High Sens Total Protein Albumin Lipase TSH Urine Color STRAW Urine Appearance CLEAR Urine pH 6.0 Ur Specific [place] 1.020 Urine Protein NEG Urine Glucose (UA) 500 H Urine Ketones 15 Urine Blood NEG Urine Nitrite NEG Ur Leukocyte Esterase NEG COVID-19 ([facility]) COVID-19 Clin Com 03/13/21 06:00 MCV MCH MCHC RDW Plt Count MPV Immature Gran % (Auto) Neut % (Auto) Lymph % (Auto) [place] % (Auto) Eos % (Auto) Baso % (Auto) Lymph # (Auto) [place] # (Auto) Eos # (Auto) Baso # (Auto) Abs Immat Gran (auto) Absolute Neuts (auto) Absolute Nucleated RBC Nucleated RBC % (auto) Smear Tech's Comments VBG pH VBG pCO2 VBG pO2 VBG HCO3 VBG O2 Saturation VBG Base Excess Anion Gap 17 Estim Creat Clear Calc 37.7 Estimated GFR 47 POC Glucose Random Glucose 384 H* Lactic Acid Calcium 8.4 D Magnesium Total Bilirubin Direct Bilirubin AST ALT Alkaline Phosphatase Ammonia Troponin I High Sens Total Protein Albumin Lipase TSH Urine Color Urine Appearance Urine pH Ur Specific [place] Urine Protein Urine Glucose (UA) Urine Ketones Urine Blood Urine Nitrite Ur Leukocyte Esterase COVID-19 ([facility]) COVID-19 Clin Com <Lashawn Gallegos PA-C - Last Filed: 03/13/21 10:08> Procedures Date of Service Date of Service: 03/13/21 <Lashawn Gallegos PA-C - Last Filed: 03/13/21 10:08> Progress Note: A&P Assessment and plan (1) Intra-abdominal abscess: Status: Acute <Lashawn Gallegos PA-C - Last Filed: 03/13/21 10:08> Assessment and Plan: She feels better Says pain is much improved Tolerating diet WBC slightly lower No fever Continue Zosyn Repeat CT scan tomorrow Blood sugar control Hospitalist follow Seen and examined - agree with MARK Gallegos <Tay Pelayo MD - Last Filed: 03/13/21 10:52> (2) Sepsis: Status: Acute <Lashawn Gallegos PA-C - Last Filed: 03/13/21 10:08> (3) Diabetes: Status: Acute <Lashawn Gallegos PA-C - Last Filed: 03/13/21 10:08> Assessment and Plan: ?71-year-old female who presented to ED with c/o epigastric pain found to have a fluid collection in the gallbladder fossa that is consistent with a complex abscess versus infected hematoma.? This was reviewed with radiology and appears too small to be aspirated at this time.? She has history of purulent cholecystitis January 04, 2021 and had undergone laparoscopic cholecystectomy for this, which was uncomplicated. She feels a little better this morning. Vitals stable. WBC slightly improved.?Cont supportive measures of IV zosyn, IVF. Plan to repeat CT scan tomorrow to reevaluate collection. Repeat labs in am. Appreciate hospitalist input. <Lashawn Gallegos PA-C - Last Filed: 03/13/21 10:08> Fall Risk Details Current Medications: Current Medications Amlodipine Besylate (Amlodipine Besylate 10 Mg Tablet) 10 mg PO DAILY [facility]; Protocol Last Admin: 03/13/21 08:16 Dose: 10 mg Documented by: Aripiprazole (Aripiprazole 20 Mg Tablet) 20 mg PO BEDTIME [facility] Last Admin: 03/12/21 21:24 Dose: 20 mg Documented by: Carvedilol (Carvedilol 6.25 Mg Tablet) 6.25 mg PO BID [facility]; Protocol Last Admin: 03/13/21 08:16 Dose: 6.25 mg Documented by: Clonazepam (Clonazepam 0.5 Mg Tablet) 0.5 mg PO Q8H PRN PRN Reason: anxiety Dextrose (Dextrose 50 % 25 Gm/50 Ml Vial) 25 gm IVPUSH Q15M PRN; Protocol PRN Reason: per Hypoglycemia Standing Ord. Furosemide (Furosemide 20 Mg Tablet) 20 mg PO DAILY [facility]; Protocol Last Admin: 03/13/21 08:16 Dose: 20 mg Documented by: Gabapentin (Gabapentin 100 Mg Capsule) 100 mg PO BID [facility] Last Admin: 03/13/21 08:16 Dose: 100 mg Documented by: Glucose (Glucose Gel 15 Gm Gel..Gram.) 15 gm PO Q15M PRN; Protocol PRN Reason: per Hypoglycemia Standing Ord. Heparin Sodium (Porcine) (Heparin Sodium,Porcine 5,000 Unit/Ml Vial) 5,000 unit SUBCUT Q12H [facility] Last Admin: 03/13/21 00:29 Dose: 5,000 unit Documented by: Hydroxyzine HCl (Hydroxyzine Hcl 10 Mg Tablet) 10 mg PO Q8H PRN PRN Reason: Anxiety Sodium Chloride (Ns) 1,000 mls @ 100 mls/hr IVCONT .Q10H [facility] Last Admin: 03/13/21 08:15 Dose: Not Given Documented by: Piperacillin Sod/Tazobactam (Sod 3.375 gm/ Sodium Chloride) 50 mls @ 100 mls/hr IV Q6H [facility] Last Infusion: 03/13/21 06:46 Dose: Infused Documented by: Insulin Human Lispro (Insulin Lispro 100 Unit/Ml 3 Ml Vial) 0 unit SUBCUT QIDACHS [facility]; Protocol Last Admin: 03/13/21 06:44 Dose: 10 unit Documented by: Morphine Sulfate (Morphine Sulfate 2 Mg/Ml Cartridge) 1 mg IVPUSH Q3H PRN; Protocol PRN Reason: Pain, Severe (Pain Scale 7-10) Oxycodone HCl (Oxycodone Hcl Immed Release 5 Mg Tablet) 5 mg PO Q6H PRN PRN Reason: Pain, Moderate (Pain Scale 4-6 Last Admin: 03/12/21 13:11 Dose: 5 mg Documented by: Pharmacy Consult (Consult Rx Perform Med Rec) 1 each MISCELLANE ONCE PRN PRN Reason: Consult order Sodium Chloride (0.9 % Sodium Chloride Flush 3 Ml Syringe) 3 ml IVFLUSH QSHIFT [facility] Last Admin: 03/13/21 07:20 Dose: Not Given Documented by: Venlafaxine HCl (Venlafaxine Hcl Er 150 Mg Cap.Er.24h) 150 mg PO DAILY [facility] Last Admin: 03/13/21 08:16 Dose: 150 mg Documented by: <Lashawn Gallegos PA-C - Last Filed: 03/13/21 10:08> Time Spent With Patient Time: Total time spent is greater than 50% in coordination of care (as documented) at patient's floor/unit and/or counseling patient: <Lashawn Gallegos PA-C - Last Filed: 03/13/21 10:08> Time with patient: 15 - 24 minutes <Lashawn Gallegos PA-C - Last Filed: 03/13/21 10:08> Quality Stroke Does the patient have a stroke diagnosis?: No <Lashawn Gallegos PA-C - Last Filed: 03/13/21 10:08> VTE Prior VTE?: No <Lashawn Gallegos PA-C - Last Filed: 03/13/21 10:08> VTE Risk Level:: Medical - moderate - high <Lashawn Gallegos PA-C - Last Filed: 03/13/21 10:08> VTE Device Contraindication: N/A - Device Ordered <Lashawn Gallegos PA-C - Last Filed: 03/13/21 10:08> VTE Drug Contraindication: N/A - Med Ordered <Lashawn Gallegos PA-C - Last Filed: 03/13/21 10:08>
--- NOTE | 2021-03-13 10:09 | P.PNIM_ITS ---
Subjective Subjective Date of Service: 03/13/21 Interval History: the patient was seen and evaluated this morning Laying in bed, feels comfortable, still having epigastric pain Denies any fever, chills or shortness of breath No reported other overnight events. Systemic review: No fever, chills but reports generalized weakness No chest pain, palpitation No shortness of breath or coughing Reporting epigastric pain with no nausea or vomiting No urinary symptoms No any rash or wounds Physical Exam Vital Signs: Vital Signs: Last Vital Signs Temp 97.0 F 03/13/21 07:51 Pulse 84 03/13/21 08:16 Resp 17 03/13/21 07:51 BP 141/66 H 03/13/21 08:16 Pulse Ox 97 03/13/21 07:51 Body Mass Index 23.4 Const: Other: Constitutional : Alert, oriented, not in distress Neck : Normal inspection, Supple Cardiovascular : RRR, S1 S2, no lower extremity edema Respiratory : Good bilateral air entry, no crackles, wheezes or rhonchi Gastrointestinal: soft, lax, Normal bowel sounds, Non tender Skin : Warm, Dry Neurological : Alert & oriented x3, No focal deficit Objective Data Active Medications Amlodipine Besylate (Amlodipine Besylate 10 Mg Tablet) 10 mg PO DAILY [facility]; Protocol Last Admin: 03/13/21 08:16 Dose: 10 mg Documented by: COTEMA Aripiprazole (Aripiprazole 20 Mg Tablet) 20 mg PO BEDTIME [facility] Last Admin: 03/12/21 21:24 Dose: 20 mg Documented by: FARHANA Carvedilol (Carvedilol 6.25 Mg Tablet) 6.25 mg PO BID [facility]; Protocol Last Admin: 03/13/21 08:16 Dose: 6.25 mg Documented by: COTEMA Clonazepam (Clonazepam 0.5 Mg Tablet) 0.5 mg PO Q8H PRN PRN Reason: anxiety Dextrose (Dextrose 50 % 25 Gm/50 Ml Vial) 25 gm IVPUSH Q15M PRN; Protocol PRN Reason: per Hypoglycemia Standing Ord. Furosemide (Furosemide 20 Mg Tablet) 20 mg PO DAILY [facility]; Protocol Last Admin: 03/13/21 08:16 Dose: 20 mg Documented by: COTEMA Gabapentin (Gabapentin 100 Mg Capsule) 100 mg PO BID [facility] Last Admin: 03/13/21 08:16 Dose: 100 mg Documented by: JAREK Glucose (Glucose Gel 15 Gm Gel..Gram.) 15 gm PO Q15M PRN; Protocol PRN Reason: per Hypoglycemia Standing Ord. Heparin Sodium (Porcine) (Heparin Sodium,Porcine 5,000 Unit/Ml Vial) 5,000 unit SUBCUT Q12H [facility] Last Admin: 03/13/21 00:29 Dose: 5,000 unit Documented by: MEMERISCatie Hydroxyzine HCl (Hydroxyzine Hcl 10 Mg Tablet) 10 mg PO Q8H PRN PRN Reason: Anxiety Sodium Chloride (Ns) 1,000 mls @ 100 mls/hr IVCONT .Q10H [facility] Last Infusion: 03/13/21 09:50 Dose: 0 mls/hr Documented by: JAREK Piperacillin Sod/Tazobactam (Sod 3.375 gm/ Sodium Chloride) 50 mls @ 100 mls/hr IV Q6H [facility] Last Infusion: 03/13/21 06:46 Dose: 0 mls/hr Documented by: JOSESITO Insulin Human Lispro (Insulin Lispro 100 Unit/Ml 3 Ml Vial) 0 unit SUBCUT QIDACHS [facility]; Protocol Last Admin: 03/13/21 06:44 Dose: 10 unit Documented by: JOSESITO Morphine Sulfate (Morphine Sulfate 2 Mg/Ml Cartridge) 1 mg IVPUSH Q3H PRN; Protocol PRN Reason: Pain, Severe (Pain Scale 7-10) Oxycodone HCl (Oxycodone Hcl Immed Release 5 Mg Tablet) 5 mg PO Q6H PRN PRN Reason: Pain, Moderate (Pain Scale 4-6 Last Admin: 03/12/21 13:11 Dose: 5 mg Documented by: FARHANA Pharmacy Consult (Consult Rx Perform Med Rec) 1 each MISCELLANE ONCE PRN PRN Reason: Consult order Sodium Chloride (0.9 % Sodium Chloride Flush 3 Ml Syringe) 3 ml IVFLUSH QSHIFT [facility] Last Admin: 03/13/21 07:20 Dose: Not Given Documented by: JAREK Non-Admin Reason: IV Running Venlafaxine HCl (Venlafaxine Hcl Er 150 Mg Cap.Er.24h) 150 mg PO DAILY [facility] Last Admin: 03/13/21 08:16 Dose: 150 mg Documented by: JAREK Labs CBC & Chem 7: 03/13/21 06:00 03/13/21 06:00 Labs: Laboratory Results - last 24 hr 03/12/21 03/12/21 03/12/21 10:17 10:36 10:36 MCV 84.6 MCH 26.5 L MCHC 31.3 RDW 16.9 H Plt Count 254 MPV 11.5 Immature Gran % (Auto) 0.5 H Neut % (Auto) 86.5 H Lymph % (Auto) 9.2 L [place] % (Auto) 3.6 Eos % (Auto) 0.0 Baso % (Auto) 0.2 Lymph # (Auto) 1.5 [place] # (Auto) 0.6 Eos # (Auto) 0.0 Baso # (Auto) 0.0 Abs Immat Gran (auto) 0.09 H Absolute Neuts (auto) 14.4 H Absolute Nucleated RBC 0.000 Nucleated RBC % (auto) 0.0 Smear Tech's Comments VBG pH VBG pCO2 VBG pO2 VBG HCO3 VBG O2 Saturation VBG Base Excess Anion Gap 16 Estim Creat Clear Calc 30.3 Estimated GFR 37 POC Glucose 296 H Random Glucose 379 H* Lactic Acid Calcium 9.4 D Magnesium 2.3 Total Bilirubin 0.6 Direct Bilirubin 0.3 AST 34 H D ALT 40 H Alkaline Phosphatase 129 H D Ammonia Troponin I High Sens Total Protein 6.5 D Albumin 3.8 D Lipase 13 TSH 7.92 H Urine Color Urine Appearance Urine pH Ur Specific [place] Urine Protein Urine Glucose (UA) Urine Ketones Urine Blood Urine Nitrite Ur Leukocyte Esterase COVID-19 ([facility]) COVID-19 Clin Com 03/12/21 03/12/21 03/12/21 10:36 10:36 10:36 MCV MCH MCHC RDW Plt Count MPV Immature Gran % (Auto) Neut % (Auto) Lymph % (Auto) [place] % (Auto) Eos % (Auto) Baso % (Auto) Lymph # (Auto) [place] # (Auto) Eos # (Auto) Baso # (Auto) Abs Immat Gran (auto) Absolute Neuts (auto) Absolute Nucleated RBC Nucleated RBC % (auto) Smear Tech's Comments VBG pH VBG pCO2 VBG pO2 VBG HCO3 VBG O2 Saturation VBG Base Excess Anion Gap Estim Creat Clear Calc Estimated GFR POC Glucose Random Glucose Lactic Acid 1.6 Calcium Magnesium Total Bilirubin Direct Bilirubin AST ALT Alkaline Phosphatase Ammonia 21 Troponin I High Sens 13.7 Total Protein Albumin Lipase TSH Urine Color Urine Appearance Urine pH Ur Specific [place] Urine Protein Urine Glucose (UA) Urine Ketones Urine Blood Urine Nitrite Ur Leukocyte Esterase COVID-19 ([facility]) COVID-19 Instant API 03/12/21 03/12/21 03/12/21 10:37 10:41 12:39 MCV MCH MCHC RDW Plt Count MPV Immature Gran % (Auto) Neut % (Auto) Lymph % (Auto) [place] % (Auto) Eos % (Auto) Baso % (Auto) Lymph # (Auto) [place] # (Auto) Eos # (Auto) Baso # (Auto) Abs Immat Gran (auto) Absolute Neuts (auto) Absolute Nucleated RBC Nucleated RBC % (auto) Smear Tech's Comments VBG pH 7.43 VBG pCO2 50 VBG pO2 44 VBG HCO3 34 H VBG O2 Saturation 61.0 VBG Base Excess 8.3 Anion Gap Estim Creat Clear Calc Estimated GFR POC Glucose 302 H Random Glucose Lactic Acid Calcium Magnesium Total Bilirubin Direct Bilirubin AST ALT Alkaline Phosphatase Ammonia Troponin I High Sens Total Protein Albumin Lipase TSH Urine Color Urine Appearance Urine pH Ur Specific [place] Urine Protein Urine Glucose (UA) Urine Ketones Urine Blood Urine Nitrite Ur Leukocyte Esterase COVID-19 ([facility]) Negative COVID-[employer] Com See Note 03/12/21 03/12/21 03/12/21 14:02 17:04 19:06 MCV MCH MCHC RDW Plt Count MPV Immature Gran % (Auto) Neut % (Auto) Lymph % (Auto) [place] % (Auto) Eos % (Auto) Baso % (Auto) Lymph # (Auto) [place] # (Auto) Eos # (Auto) Baso # (Auto) Abs Immat Gran (auto) Absolute Neuts (auto) Absolute Nucleated RBC Nucleated RBC % (auto) Smear Tech's Comments VBG pH VBG pCO2 VBG pO2 VBG HCO3 VBG O2 Saturation VBG Base Excess Anion Gap Estim Creat Clear Calc Estimated GFR POC Glucose 228 H 270 H 305 H Random Glucose Lactic Acid Calcium Magnesium Total Bilirubin Direct Bilirubin AST ALT Alkaline Phosphatase Ammonia Troponin I High Sens Total Protein Albumin Lipase TSH Urine Color Urine Appearance Urine pH Ur Specific [place] Urine Protein Urine Glucose (UA) Urine Ketones Urine Blood Urine Nitrite Ur Leukocyte Esterase COVID-19 ([facility]) COVID-[employer] 03/12/21 03/12/21 03/13/21 20:28 21:34 06:00 MCV 83.8 MCH 26.9 L MCHC 32.1 RDW 16.8 H Plt Count 145 L D MPV 10.5 Immature Gran % (Auto) 0.5 H Neut % (Auto) 77.7 H Lymph % (Auto) 15.4 L [place] % (Auto) 6.1 Eos % (Auto) 0.0 Baso % (Auto) 0.3 Lymph # (Auto) 2.3 [place] # (Auto) 0.9 Eos # (Auto) 0.0 Baso # (Auto) 0.0 Abs Immat Gran (auto) 0.08 H Absolute Neuts (auto) 11.8 H Absolute Nucleated RBC 0.000 Nucleated RBC % (auto) 0.0 Smear Tech's Comments VERIFIED VBG pH VBG pCO2 VBG pO2 VBG HCO3 VBG O2 Saturation VBG Base Excess Anion Gap Estim Creat Clear Calc Estimated GFR POC Glucose 328 H Random Glucose Lactic Acid Calcium Magnesium Total Bilirubin Direct Bilirubin AST ALT Alkaline Phosphatase Ammonia Troponin I High Sens Total Protein Albumin Lipase TSH Urine Color STRAW Urine Appearance CLEAR Urine pH 6.0 Ur Specific [place] 1.020 Urine Protein NEG Urine Glucose (UA) 500 H Urine Ketones 15 Urine Blood NEG Urine Nitrite NEG Ur Leukocyte Esterase NEG COVID-19 ([facility]) COVID-19 Clin Com 03/13/21 06:00 MCV MCH MCHC RDW Plt Count MPV Immature Gran % (Auto) Neut % (Auto) Lymph % (Auto) [place] % (Auto) Eos % (Auto) Baso % (Auto) Lymph # (Auto) [place] # (Auto) Eos # (Auto) Baso # (Auto) Abs Immat Gran (auto) Absolute Neuts (auto) Absolute Nucleated RBC Nucleated RBC % (auto) Smear Tech's Comments VBG pH VBG pCO2 VBG pO2 VBG HCO3 VBG O2 Saturation VBG Base Excess Anion Gap 17 Estim Creat Clear Calc 37.7 Estimated GFR 47 POC Glucose Random Glucose 384 H* Lactic Acid Calcium 8.4 D Magnesium Total Bilirubin Direct Bilirubin AST ALT Alkaline Phosphatase Ammonia Troponin I High Sens Total Protein Albumin Lipase TSH Urine Color Urine Appearance Urine pH Ur Specific [place] Urine Protein Urine Glucose (UA) Urine Ketones Urine Blood Urine Nitrite Ur Leukocyte Esterase COVID-19 ([facility]) COVID-19 Clin Com Assessment and Plan (1) Abdominal pain: Status: Acute (2) Diabetes: Status: Acute Assessment and Plan: 71 year old women admitted by general surgery Intra-abdominal Hematoma versus abscess Epigastric pain 2/2 Intra-abdominal Hematoma versus abscess No sepsis Management as per surgical team Continue Zosyn Plan to repeat CT tomorrow Diabetes. sliding scale Advanced diet as tolerated Anemia no bleeding stable HH CAD hold plavix continue BB HTN Amlodipine if she needs to go to OR, hold to avoid hypotension Thanks for the consult will continue to monitor with you Quality Stroke Does the patient have a stroke diagnosis?: No VTE Prior VTE?: No VTE Risk Level:: Medical - moderate - high VTE Device Contraindication: N/A - Device Ordered VTE Drug Contraindication: N/A - Med Ordered
[2021-03-13] MEDS: 0.9 % Sodium Chloride 1,000 ML 100 ML IVCONT ×2 (10:31→22:20)
[2021-03-13 11:26] LABS: Glucose, Whole Blood 200 mg/dL (60-115)
[2021-03-13 16:28] LABS: Glucose, Whole Blood 235 mg/dL (60-115)
[2021-03-13 20:25] LABS: Glucose, Whole Blood 214 mg/dL (60-115)
[2021-03-13] MEDS: ARIPiprazole 20 MG TABLET PO (22:16)
[2021-03-14] VITALS (8 sets, daily range): BP systolic 129–156; BP diastolic 59–69; PULSE 58–71; RESP 17–19; TEMP 36.1–36.6; O2SAT 94–99
[2021-03-14] MEDS: Heparin Sodium,Porcine 5,000 UNIT/ML VIAL 5000 UNIT SUBCUT ×2 (00:11→11:49)
[2021-03-14] MEDS: Piperacillin Sodium/Tazobactam 3.375 GM in 0.9 % Sodium Chloride 50 ML IV ×4 (00:12→17:17)
[2021-03-14] MEDS: 0.9 % Sodium Chloride 1,000 ML 100 ML IVCONT ×2 (05:02→15:35)
[2021-03-14 05:49] LABS: Basophils Percent Auto 0.7 % (0-2); MANUAL DIFF FLAG SCAN; Mean Corpuscular Volume 82.4 fL (80.0-98.0); PLT CLUMP 1; SCAN SMEAR FLAG 1
[2021-03-14 05:51] LABS: Basophils Absolute Auto 0.1 X10*3/uL (0.0-0.2); Eosinophils Absolute Auto 0.1 X10*3/uL (0.0-0.4); Eosinophils Percent Auto 0.8 % (0-4); Hematocrit 33.3 % (37.0-47.0); Hemoglobin 10.7 g/dl (12.0-16.0); Imm Gran Abs Auto 0.08 X10*3/uL (0.00-0.03); Imm Gran Pct Auto 0.6 % (0.0-0.4); Lymphocytes Absolute Auto 3.6 X10*3/uL (1.2-4.9); Lymphocytes Percent Auto 25.8 % (20-40); Mean Corpuscular HGB Conc 32.1 g/dl (31.0-35.0); Mean Corpuscular Hemoglobin 26.5 pg (27.0-33.0); Mean Platelet Volume 10.7 fL (9.4-12.3); Monocytes Absolute Auto 1.4 X10*3/uL (0.1-1.2); Monocytes Percent Auto 9.7 % (2-11); Neutrophils Absolute Auto 8.7 x10*3/uL (2.0-8.3); Neutrophils Percent Auto 62.4 % (45-73); Platelet Count 111 X10*3/uL (160-400); Red Blood Count 4.04 X10*6/uL (4.20-5.50); Red Cell Distribution Width 17.2 % (11.0-16.0)
[2021-03-14 05:55] LABS: PLT ABN DIST 1
[2021-03-14 06:15] LABS: SLIDE REVIEW VERIFIED
[2021-03-14 07:58] LABS: Glucose, Whole Blood 340 mg/dL (60-115)
[2021-03-14] MEDS: Furosemide 20 MG TABLET PO (08:35)
[2021-03-14] MEDS: Insulin Glargine,Hum.rec.anlog 100 UNIT/ML 10 ML VIAL 10 UNIT SUBCUT (08:35)
[2021-03-14] MEDS: Gabapentin 100 MG CAPSULE PO ×2 (08:35→20:46)
[2021-03-14] MEDS: carvediloL 6.25 MG TABLET PO ×2 (08:35→20:46)
[2021-03-14] MEDS: Venlafaxine HCl ER 150 MG CAP.ER.24H PO (08:35)
[2021-03-14] MEDS: amLODIPine Besylate 10 MG TABLET PO (08:35)
[2021-03-14] MEDS: Insulin Lispro 100 UNIT/ML 3 ML VIAL SUBCUT ×4 (08:35→20:46)
--- NOTE | 2021-03-14 10:03 | P.PNGS_ITS ---
Subjective Subjective Date of Service: 03/14/21 Interval history: No events reported overnight She describes some on the abdomen No nausea or vomiting No fever Tolerating diet well Physical Exam Vital Signs: Vital Signs: Last Vital Signs Temp 97.5 F 03/14/21 08:00 Pulse 71 03/14/21 08:35 Resp 17 03/14/21 08:00 BP 156/67 H 03/14/21 08:35 Pulse Ox 99 03/14/21 08:00 Body Mass Index 23.4 Const: Other: Answers questions although with very slow mentation General: comfortable and no acute distress Resp: Effort & Inspection: normal respiratory effort Cardio: Rate: regular rate GI: Other: Mild tenderness on the mid abdomen Palpation (GI): Soft to palpation, not firm and no guarding Objective Data Active Medications Amlodipine Besylate (Amlodipine Besylate 10 Mg Tablet) 10 mg PO DAILY [facility]; Protocol Last Admin: 03/14/21 08:35 Dose: 10 mg Documented by: COTEMA Aripiprazole (Aripiprazole 20 Mg Tablet) 20 mg PO BEDTIME [facility] Last Admin: 03/13/21 22:16 Dose: 20 mg Documented by: SADIE Carvedilol (Carvedilol 6.25 Mg Tablet) 6.25 mg PO BID [facility]; Protocol Last Admin: 03/14/21 08:35 Dose: 6.25 mg Documented by: COTEMA Clonazepam (Clonazepam 0.5 Mg Tablet) 0.5 mg PO Q8H PRN PRN Reason: anxiety Dextrose (Dextrose 50 % 25 Gm/50 Ml Vial) 25 gm IVPUSH Q15M PRN; Protocol PRN Reason: per Hypoglycemia Standing Ord. Furosemide (Furosemide 20 Mg Tablet) 20 mg PO DAILY [facility]; Protocol Last Admin: 03/14/21 08:35 Dose: 20 mg Documented by: COTEMA Gabapentin (Gabapentin 100 Mg Capsule) 100 mg PO BID [facility] Last Admin: 03/14/21 08:35 Dose: 100 mg Documented by: JOVITAEMA Glucose (Glucose Gel 15 Gm Gel..Gram.) 15 gm PO Q15M PRN; Protocol PRN Reason: per Hypoglycemia Standing Ord. Heparin Sodium (Porcine) (Heparin Sodium,Porcine 5,000 Unit/Ml Vial) 5,000 unit SUBCUT Q12H [facility] Last Admin: 03/14/21 00:11 Dose: 5,000 unit Documented by: SADIE Hydroxyzine HCl (Hydroxyzine Hcl 10 Mg Tablet) 10 mg PO Q8H PRN PRN Reason: Anxiety Sodium Chloride (Ns) 1,000 mls @ 100 mls/hr IVCONT .Q10H [facility] Last Admin: 03/14/21 05:02 Dose: 100 mls/hr Documented by: SADIE Piperacillin Sod/Tazobactam (Sod 3.375 gm/ Sodium Chloride) 50 mls @ 100 mls/hr IV Q6H [facility] Last Infusion: 03/14/21 06:41 Dose: 0 mls/hr Documented by: SADIE Insulin Glargine (Insulin Glargine,Hum.Rec.Anlog 100 Unit/Ml 10 Ml Vial) 10 unit SUBCUT DAILY [facility] Last Admin: 03/14/21 08:35 Dose: 10 unit Documented by: JAREK Insulin Human Lispro (Insulin Lispro 100 Unit/Ml 3 Ml Vial) 0 unit SUBCUT QIDACHS [facility]; Protocol Last Admin: 03/14/21 08:35 Dose: 8 unit Documented by: JAREK Morphine Sulfate (Morphine Sulfate 2 Mg/Ml Cartridge) 1 mg IVPUSH Q3H PRN; Protocol PRN Reason: Pain, Severe (Pain Scale 7-10) Oxycodone HCl (Oxycodone Hcl Immed Release 5 Mg Tablet) 5 mg PO Q6H PRN PRN Reason: Pain, Moderate (Pain Scale 4-6 Last Admin: 03/12/21 13:11 Dose: 5 mg Documented by: FARHANA Pharmacy Consult (Consult Rx Perform Med Rec) 1 each MISCELLANE ONCE PRN PRN Reason: Consult order Sodium Chloride (0.9 % Sodium Chloride Flush 3 Ml Syringe) 3 ml IVFLUSH QSHIFT [facility] Last Admin: 03/14/21 07:45 Dose: Not Given Documented by: JAREK Non-Admin Reason: IV Running Venlafaxine HCl (Venlafaxine Hcl Er 150 Mg Cap.Er.24h) 150 mg PO DAILY [facility] Last Admin: 03/14/21 08:35 Dose: 150 mg Documented by: JAREK Labs CBC & Chem 7: 03/14/21 05:30 03/13/21 06:00 Labs: Laboratory Results - last 24 hr 03/13/21 03/13/21 03/13/21 11:06 16:23 20:04 MCV MCH MCHC RDW Plt Count MPV Immature Gran % (Auto) Neut % (Auto) Lymph % (Auto) [place] % (Auto) Eos % (Auto) Baso % (Auto) Lymph # (Auto) [place] # (Auto) Eos # (Auto) Baso # (Auto) Abs Immat Gran (auto) Absolute Neuts (auto) Absolute Nucleated RBC Nucleated RBC % (auto) Smear Tech's Comments POC Glucose 200 H 235 H 214 H 03/14/21 03/14/21 05:30 07:50 MCV 82.4 MCH 26.5 L MCHC 32.1 RDW 17.2 H Plt Count 111 L MPV 10.7 Immature Gran % (Auto) 0.6 H Neut % (Auto) 62.4 Lymph % (Auto) 25.8 [place] % (Auto) 9.7 Eos % (Auto) 0.8 Baso % (Auto) 0.7 Lymph # (Auto) 3.6 [place] # (Auto) 1.4 H Eos # (Auto) 0.1 Baso # (Auto) 0.1 Abs Immat Gran (auto) 0.08 H Absolute Neuts (auto) 8.7 H Absolute Nucleated RBC 0.000 Nucleated RBC % (auto) 0.0 Smear Tech's Comments VERIFIED POC Glucose 340 H Microbiology Microbiology Results: Microbiology 03/12/21 10:36 Blood Culture - Final Blood - Venous Coag negative Staphylococcus 03/12/21 10:44 Blood Culture - Preliminary Blood - Venous No growth after 24 hours. Procedures Date of Service Date of Service: 03/14/21 Progress Note: A&P Assessment and plan (1) Intra-abdominal abscess: Status: Acute Assessment and Plan: Tenderness but no guarding rebound Leukocytosis slowly drifting downward She looks well otherwise Recent CT shows complex fluid collection in the gallbladder fossa, possibly infected hematoma from cholecystectomy for purulent cholecystitis last December Will repeat CT scan today Explained plan to patient Continue antibiotics Blood sugar still elevated although better Fall Risk Details Current Medications: Current Medications Amlodipine Besylate (Amlodipine Besylate 10 Mg Tablet) 10 mg PO DAILY [facility]; Protocol Last Admin: 03/14/21 08:35 Dose: 10 mg Documented by: Aripiprazole (Aripiprazole 20 Mg Tablet) 20 mg PO BEDTIME [facility] Last Admin: 03/13/21 22:16 Dose: 20 mg Documented by: Carvedilol (Carvedilol 6.25 Mg Tablet) 6.25 mg PO BID [facility]; Protocol Last Admin: 03/14/21 08:35 Dose: 6.25 mg Documented by: Clonazepam (Clonazepam 0.5 Mg Tablet) 0.5 mg PO Q8H PRN PRN Reason: anxiety Dextrose (Dextrose 50 % 25 Gm/50 Ml Vial) 25 gm IVPUSH Q15M PRN; Protocol PRN Reason: per Hypoglycemia Standing Ord. Furosemide (Furosemide 20 Mg Tablet) 20 mg PO DAILY [facility]; Protocol Last Admin: 03/14/21 08:35 Dose: 20 mg Documented by: Gabapentin (Gabapentin 100 Mg Capsule) 100 mg PO BID [facility] Last Admin: 03/14/21 08:35 Dose: 100 mg Documented by: Glucose (Glucose Gel 15 Gm Gel..Gram.) 15 gm PO Q15M PRN; Protocol PRN Reason: per Hypoglycemia Standing Ord. Heparin Sodium (Porcine) (Heparin Sodium,Porcine 5,000 Unit/Ml Vial) 5,000 unit SUBCUT Q12H [facility] Last Admin: 03/14/21 00:11 Dose: 5,000 unit Documented by: Hydroxyzine HCl (Hydroxyzine Hcl 10 Mg Tablet) 10 mg PO Q8H PRN PRN Reason: Anxiety Sodium Chloride (Ns) 1,000 mls @ 100 mls/hr IVCONT .Q10H [facility] Last Admin: 03/14/21 05:02 Dose: 100 mls/hr Documented by: Piperacillin Sod/Tazobactam (Sod 3.375 gm/ Sodium Chloride) 50 mls @ 100 mls/hr IV Q6H [facility] Last Infusion: 03/14/21 06:41 Dose: Infused Documented by: Insulin Glargine (Insulin Glargine,Hum.Rec.Anlog 100 Unit/Ml 10 Ml Vial) 10 unit SUBCUT DAILY [facility] Last Admin: 03/14/21 08:35 Dose: 10 unit Documented by: Insulin Human Lispro (Insulin Lispro 100 Unit/Ml 3 Ml Vial) 0 unit SUBCUT QIDACHS [facility]; Protocol Last Admin: 03/14/21 08:35 Dose: 8 unit Documented by: Morphine Sulfate (Morphine Sulfate 2 Mg/Ml Cartridge) 1 mg IVPUSH Q3H PRN; Protocol PRN Reason: Pain, Severe (Pain Scale 7-10) Oxycodone HCl (Oxycodone Hcl Immed Release 5 Mg Tablet) 5 mg PO Q6H PRN PRN Reason: Pain, Moderate (Pain Scale 4-6 Last Admin: 03/12/21 13:11 Dose: 5 mg Documented by: Pharmacy Consult (Consult Rx Perform Med Rec) 1 each MISCELLANE ONCE PRN PRN Reason: Consult order Sodium Chloride (0.9 % Sodium Chloride Flush 3 Ml Syringe) 3 ml IVFLUSH QSHIFT [facility] Last Admin: 03/14/21 07:45 Dose: Not Given Documented by: Venlafaxine HCl (Venlafaxine Hcl Er 150 Mg Cap.Er.24h) 150 mg PO DAILY [facility] Last Admin: 03/14/21 08:35 Dose: 150 mg Documented by: Time Spent With Patient Time: Total time spent is greater than 50% in coordination of care (as documented) at patient's floor/unit and/or counseling patient: Time with patient: 15 - 24 minutes Quality Stroke Does the patient have a stroke diagnosis?: No VTE Prior VTE?: No VTE Risk Level:: Medical - moderate - high VTE Device Contraindication: N/A - Device Ordered VTE Drug Contraindication: N/A - Med Ordered
[2021-03-14] MEDS: iohexoL 350 MG/ML 100 ML INFUS..BTL IV (11:43)
[2021-03-14 11:44] LABS: Glucose, Whole Blood 219 mg/dL (60-115)
--- NOTE | 2021-03-14 11:50 | HO.PM.IMPN ---
Subjective Subjective Date of Service: 03/14/21 Interval History: the patient was seen and evaluated this morning Laying in bed, feels comfortable, still having epigastric pain Blood sugar remains elevated during the day Denies any fever, chills or shortness of breath No reported other overnight events. Systemic review: No fever, chills but reports generalized weakness No chest pain, palpitation No shortness of breath or coughing Reporting epigastric pain with no nausea or vomiting No urinary symptoms No any rash or wounds Physical Exam Vital Signs: Vital Signs: Last Vital Signs Temp 97.5 F 03/14/21 08:00 Pulse 71 03/14/21 08:35 Resp 17 03/14/21 08:00 BP 156/67 H 03/14/21 08:35 Pulse Ox 99 03/14/21 08:00 Body Mass Index 23.4 Const: Other: Constitutional : Alert, oriented, not in distress Neck : Normal inspection, Supple Cardiovascular : RRR, S1 S2, no lower extremity edema Respiratory : Good bilateral air entry, no crackles, wheezes or rhonchi Gastrointestinal: soft, lax, Normal bowel sounds, mild generalized tenderness Skin : Warm, Dry Neurological : Alert & oriented x3, No focal deficit Objective Data Active Medications Amlodipine Besylate (Amlodipine Besylate 10 Mg Tablet) 10 mg PO DAILY [facility]; Protocol Last Admin: 03/14/21 08:35 Dose: 10 mg Documented by: COTEMA Aripiprazole (Aripiprazole 20 Mg Tablet) 20 mg PO BEDTIME [facility] Last Admin: 03/13/21 22:16 Dose: 20 mg Documented by: SADIE Carvedilol (Carvedilol 6.25 Mg Tablet) 6.25 mg PO BID [facility]; Protocol Last Admin: 03/14/21 08:35 Dose: 6.25 mg Documented by: JAREK Clonazepam (Clonazepam 0.5 Mg Tablet) 0.5 mg PO Q8H PRN PRN Reason: anxiety Dextrose (Dextrose 50 % 25 Gm/50 Ml Vial) 25 gm IVPUSH Q15M PRN; Protocol PRN Reason: per Hypoglycemia Standing Ord. Furosemide (Furosemide 20 Mg Tablet) 20 mg PO DAILY [facility]; Protocol Last Admin: 03/14/21 08:35 Dose: 20 mg Documented by: COTEMA Gabapentin (Gabapentin 100 Mg Capsule) 100 mg PO BID [facility] Last Admin: 03/14/21 08:35 Dose: 100 mg Documented by: JAREK Glucose (Glucose Gel 15 Gm Gel..Gram.) 15 gm PO Q15M PRN; Protocol PRN Reason: per Hypoglycemia Standing Ord. Heparin Sodium (Porcine) (Heparin Sodium,Porcine 5,000 Unit/Ml Vial) 5,000 unit SUBCUT Q12H [facility] Last Admin: 03/14/21 11:49 Dose: 5,000 unit Documented by: JAREK Hydroxyzine HCl (Hydroxyzine Hcl 10 Mg Tablet) 10 mg PO Q8H PRN PRN Reason: Anxiety Sodium Chloride (Ns) 1,000 mls @ 100 mls/hr IVCONT .Q10H [facility] Last Admin: 03/14/21 05:02 Dose: 100 mls/hr Documented by: SADIE Piperacillin Sod/Tazobactam (Sod 3.375 gm/ Sodium Chloride) 50 mls @ 100 mls/hr IV Q6H [facility] Last Admin: 03/14/21 11:49 Dose: 100 mls/hr Documented by: JAREK Insulin Glargine (Insulin Glargine,Hum.Rec.Anlog 100 Unit/Ml 10 Ml Vial) 10 unit SUBCUT DAILY [facility] Last Admin: 03/14/21 08:35 Dose: 10 unit Documented by: JAREK Insulin Human Lispro (Insulin Lispro 100 Unit/Ml 3 Ml Vial) 0 unit SUBCUT QIDACHS [facility]; Protocol Last Admin: 03/14/21 11:48 Dose: 4 unit Documented by: JAREK Iohexol (Iohexol 350 Mg/Ml 100 Ml Infus..Btl) 100 ml IV ONCE ONE Stop: 03/14/21 11:44 Last Admin: 03/14/21 11:43 Dose: 85 ml Documented by: NITHYA Morphine Sulfate (Morphine Sulfate 2 Mg/Ml Cartridge) 1 mg IVPUSH Q3H PRN; Protocol PRN Reason: Pain, Severe (Pain Scale 7-10) Oxycodone HCl (Oxycodone Hcl Immed Release 5 Mg Tablet) 5 mg PO Q6H PRN PRN Reason: Pain, Moderate (Pain Scale 4-6 Last Admin: 03/12/21 13:11 Dose: 5 mg Documented by: FARHANA Pharmacy Consult (Consult Rx Perform Med Rec) 1 each MISCELLANE ONCE PRN PRN Reason: Consult order Sodium Chloride (0.9 % Sodium Chloride Flush 3 Ml Syringe) 3 ml IVFLUSH QSHIFT [facility] Last Admin: 03/14/21 07:45 Dose: Not Given Documented by: JAREK Non-Admin Reason: IV Running Venlafaxine HCl (Venlafaxine Hcl Er 150 Mg Cap.Er.24h) 150 mg PO DAILY [facility] Last Admin: 03/14/21 08:35 Dose: 150 mg Documented by: JAREK Labs CBC & Chem 7: 03/14/21 05:30 03/13/21 06:00 Labs: Laboratory Results - last 24 hr 03/13/21 03/13/21 03/14/21 16:23 20:04 05:30 MCV 82.4 MCH 26.5 L MCHC 32.1 RDW 17.2 H Plt Count 111 L MPV 10.7 Immature Gran % (Auto) 0.6 H Neut % (Auto) 62.4 Lymph % (Auto) 25.8 Gregory % (Auto) 9.7 Eos % (Auto) 0.8 Baso % (Auto) 0.7 Lymph # (Auto) 3.6 Gregory # (Auto) 1.4 H Eos # (Auto) 0.1 Baso # (Auto) 0.1 Abs Immat Gran (auto) 0.08 H Absolute Neuts (auto) 8.7 H Absolute Nucleated RBC 0.000 Nucleated RBC % (auto) 0.0 Smear Tech's Comments VERIFIED POC Glucose 235 H 214 H 03/14/21 03/14/21 07:50 11:39 MCV MCH MCHC RDW Plt Count MPV Immature Gran % (Auto) Neut % (Auto) Lymph % (Auto) Gregory % (Auto) Eos % (Auto) Baso % (Auto) Lymph # (Auto) Gregory # (Auto) Eos # (Auto) Baso # (Auto) Abs Immat Gran (auto) Absolute Neuts (auto) Absolute Nucleated RBC Nucleated RBC % (auto) Smear Tech's Comments POC Glucose 340 H 219 H Microbiology Microbiology Results: Microbiology 03/12/21 10:36 Blood Culture - Final Blood - Venous Coag negative Staphylococcus 03/12/21 10:44 Blood Culture - Preliminary Blood - Venous No growth after 24 hours. Assessment and Plan (1) Diabetes type 1, uncontrolled: Status: Acute (2) Abdominal pain: Status: Acute Assessment and Plan: 71 year old women admitted by general surgery Intra-abdominal Hematoma versus abscess Epigastric pain 2/2 Intra-abdominal Hematoma versus abscess Management as per surgical team Continue Zosyn Plan to repeat CT today Hyperglycemia secondary to diabetes Start Lantus insulin sliding scale Advanced diet as tolerated Anemia no bleeding stable HH CAD hold plavix continue BB HTN Amlodipine Thanks for the consult will continue to monitor with you Quality Stroke Does the patient have a stroke diagnosis?: No VTE Prior VTE?: No VTE Risk Level:: Medical - moderate - high VTE Device Contraindication: N/A - Device Ordered VTE Drug Contraindication: N/A - Med Ordered
--- NOTE | 2021-03-14 15:50 | MHC.CM.PN ---
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 intr abdominal hematom vs abscess) contineu iv abx, uncontrolled blood suigars started on lantus insulin sliding scale
--- NOTE | 2021-03-14 16:15 | PM.EVENT ---
Event Note Date of Service: 03/14/21 Event Note: CT reviewed with Dr. Yamilet Aguila Heterogenous fluid collection in the gallbladder fossa unchanged Likely infected hematoma Fluid collection is small - no drainage recommended at this time Patient remains stable Afebrile Minimal tenderness and pain Continue IV antibiotics therefore Leukocytosis improving
[2021-03-14 16:56] LABS: Glucose, Whole Blood 209 mg/dL (60-115)
[2021-03-14 20:13] LABS: Glucose, Whole Blood 207 mg/dL (60-115)
[2021-03-14] MEDS: ARIPiprazole 20 MG TABLET PO (20:46)
[2021-03-14] MEDS: 0.9 % Sodium Chloride Flush 3 ML SYRINGE IVFLUSH (20:47)
[2021-03-15] MEDS: Piperacillin Sodium/Tazobactam 3.375 GM in 0.9 % Sodium Chloride 50 ML IV ×4 (00:16→17:00)
[2021-03-15] MEDS: Heparin Sodium,Porcine 5,000 UNIT/ML VIAL 5000 UNIT SUBCUT ×2 (00:16→11:59)
[2021-03-15] MEDS: 0.9 % Sodium Chloride 1,000 ML 100 ML IVCONT ×2 (01:21→17:01)
[2021-03-15 03:49] VITALS: BP 155/82; PULSE 55; RESP 19; TEMP 36.8; O2SAT 96
[2021-03-15 05:59] LABS: PLT CLUMP 1
[2021-03-15 06:00] LABS: Hematocrit 32.2 % (37.0-47.0); Hemoglobin 10.4 g/dl (12.0-16.0); Mean Corpuscular HGB Conc 32.3 g/dl (31.0-35.0); Mean Corpuscular Hemoglobin 26.5 pg (27.0-33.0); Mean Corpuscular Volume 82.1 fL (80.0-98.0); Red Blood Count 3.92 X10*6/uL (4.20-5.50); White Blood Count 17.9 X10*3/uL (4.8-10.8)
[2021-03-15 06:01] LABS: PLT ABN DIST 1; Platelet Count 95 X10*3/uL (160-400)
[2021-03-15 07:45] VITALS: BP 156/69; PULSE 63; RESP 17; TEMP 36.7; O2SAT 98
[2021-03-15 08:10] LABS: Glucose, Whole Blood 295 mg/dL (60-115)
[2021-03-15] MEDS: Furosemide 20 MG TABLET PO (08:39)
[2021-03-15] MEDS: Gabapentin 100 MG CAPSULE PO ×2 (08:40→21:31)
[2021-03-15] MEDS: amLODIPine Besylate 10 MG TABLET PO (08:40)
[2021-03-15] MEDS: carvediloL 6.25 MG TABLET PO ×2 (08:40→21:31)
[2021-03-15] MEDS: Venlafaxine HCl ER 150 MG CAP.ER.24H PO (08:40)
[2021-03-15] MEDS: Insulin Glargine,Hum.rec.anlog 100 UNIT/ML 10 ML VIAL 10 UNIT SUBCUT (08:41)
[2021-03-15] MEDS: Insulin Lispro 100 UNIT/ML 3 ML VIAL SUBCUT ×4 (08:41→21:31)
[2021-03-15] MEDS: Morphine Sulfate 2 MG/ML CARTRIDGE 1 MG IVPUSH (08:50)
--- NOTE | 2021-03-15 10:25 | HO.PM.IMPN ---
Subjective Subjective Date of Service: 03/15/21 Interval History: the patient was seen and evaluated this morning Laying in bed, feels better and tolerating diet still having epigastric pain Blood sugar better controlled Denies any fever, chills or shortness of breath No reported other overnight events. Systemic review: No fever, chills but reports generalized weakness No chest pain, palpitation No shortness of breath or coughing Reporting epigastric pain with no nausea or vomiting No urinary symptoms No any rash or wounds Physical Exam Vital Signs: Vital Signs: Last Vital Signs Temp 98.1 F 03/15/21 07:45 Pulse 63 03/15/21 07:45 Resp 17 03/15/21 07:45 BP 156/69 H 03/15/21 07:45 Pulse Ox 98 03/15/21 07:45 Body Mass Index 23.4 Const: Other: Constitutional : Alert, oriented, not in distress Neck : Normal inspection, Supple Cardiovascular : RRR, S1 S2, no lower extremity edema Respiratory : Good bilateral air entry, no crackles, wheezes or rhonchi Gastrointestinal: soft, lax, Normal bowel sounds, mild generalized tenderness Skin : Warm, Dry Neurological : Alert & oriented x3, No focal deficit Objective Data Active Medications Amlodipine Besylate (Amlodipine Besylate 10 Mg Tablet) 10 mg PO DAILY [facility]; Protocol Last Admin: 03/15/21 08:40 Dose: 10 mg Documented by: RENAE Aripiprazole (Aripiprazole 20 Mg Tablet) 20 mg PO BEDTIME SARAH Last Admin: 03/14/21 20:46 Dose: 20 mg Documented by: TEMO Carvedilol (Carvedilol 6.25 Mg Tablet) 6.25 mg PO BID [facility]; Protocol Last Admin: 03/15/21 08:40 Dose: 6.25 mg Documented by: RENAE Clonazepam (Clonazepam 0.5 Mg Tablet) 0.5 mg PO Q8H PRN PRN Reason: anxiety Dextrose (Dextrose 50 % 25 Gm/50 Ml Vial) 25 gm IVPUSH Q15M PRN; Protocol PRN Reason: per Hypoglycemia Standing Ord. Furosemide (Furosemide 20 Mg Tablet) 20 mg PO DAILY [facility]; Protocol Last Admin: 03/15/21 08:39 Dose: 20 mg Documented by: RENAE Gabapentin (Gabapentin 100 Mg Capsule) 100 mg PO BID [facility] Last Admin: 03/15/21 08:40 Dose: 100 mg Documented by: RENAE Glucose (Glucose Gel 15 Gm Gel..Gram.) 15 gm PO Q15M PRN; Protocol PRN Reason: per Hypoglycemia Standing Ord. Heparin Sodium (Porcine) (Heparin Sodium,Porcine 5,000 Unit/Ml Vial) 5,000 unit SUBCUT Q12H [facility] Last Admin: 03/15/21 00:16 Dose: 5,000 unit Documented by: TEMO Hydroxyzine HCl (Hydroxyzine Hcl 10 Mg Tablet) 10 mg PO Q8H PRN PRN Reason: Anxiety Sodium Chloride (Ns) 1,000 mls @ 100 mls/hr IVCONT .Q10H [facility] Last Admin: 03/15/21 01:21 Dose: 100 mls/hr Documented by: TEMO Piperacillin Sod/Tazobactam (Sod 3.375 gm/ Sodium Chloride) 50 mls @ 100 mls/hr IV Q6H [facility] Last Infusion: 03/15/21 06:36 Dose: 0 mls/hr Documented by: TEMO Insulin Glargine (Insulin Glargine,Hum.Rec.Anlog 100 Unit/Ml 10 Ml Vial) 10 unit SUBCUT DAILY [facility] Last Admin: 03/15/21 08:41 Dose: 10 unit Documented by: RENAE Insulin Human Lispro (Insulin Lispro 100 Unit/Ml 3 Ml Vial) 0 unit SUBCUT QIDACHS [facility]; Protocol Last Admin: 03/15/21 08:41 Dose: 6 unit Documented by: RENAE Morphine Sulfate (Morphine Sulfate 2 Mg/Ml Cartridge) 1 mg IVPUSH Q3H PRN; Protocol PRN Reason: Pain, Severe (Pain Scale 7-10) Last Admin: 03/15/21 08:50 Dose: 1 mg Documented by: RENAE Oxycodone HCl (Oxycodone Hcl Immed Release 5 Mg Tablet) 5 mg PO Q6H PRN PRN Reason: Pain, Moderate (Pain Scale 4-6 Last Admin: 03/12/21 13:11 Dose: 5 mg Documented by: FARHANA Pharmacy Consult (Consult Rx Perform Med Rec) 1 each MISCELLANE ONCE PRN PRN Reason: Consult order Sodium Chloride (0.9 % Sodium Chloride Flush 3 Ml Syringe) 3 ml IVFLUSH QSHIFT [facility] Last Admin: 03/14/21 20:47 Dose: 3 ml Documented by: TEMO Venlafaxine HCl (Venlafaxine Hcl Er 150 Mg Cap.Er.24h) 150 mg PO DAILY [facility] Last Admin: 03/15/21 08:40 Dose: 150 mg Documented by: RENAE Labs CBC & Chem 7: 03/15/21 05:48 03/13/21 06:00 Labs: Laboratory Results - last 24 hr 03/14/21 03/14/21 03/14/21 11:39 16:46 20:07 MCV MCH MCHC RDW Plt Count MPV Absolute Nucleated RBC Nucleated RBC % (auto) POC Glucose 219 H 209 H 207 H 03/15/21 03/15/21 05:48 07:43 MCV 82.1 MCH 26.5 L MCHC 32.3 RDW 17.0 H Plt Count 95 L MPV Not Reportable Absolute Nucleated RBC 0.000 Nucleated RBC % (auto) 0.0 POC Glucose 295 H Microbiology Microbiology Results: Microbiology 03/12/21 10:44 Blood Culture - Preliminary Blood - Venous No growth after 48 hours. 03/12/21 10:36 Blood Culture - Final Blood - Venous Coag negative Staphylococcus Assessment and Plan (1) Acute hyperglycemia: Status: Acute (2) Abdominal pain: Status: Acute Assessment and Plan: 71 year old women admitted by general surgery Intra-abdominal Hematoma versus abscess Epigastric pain 2/2 Intra-abdominal Hematoma versus abscess Management as per surgical team Continue Zosyn Repeat CT scan showed stable findings Hyperglycemia secondary to diabetes Continue Lantus insulin sliding scale Advanced diet as tolerated Anemia no bleeding stable HH CAD hold plavix continue BB HTN Amlodipine Thanks for the consult will continue to monitor with you Quality Stroke Does the patient have a stroke diagnosis?: No VTE Prior VTE?: No VTE Risk Level:: Medical - moderate - high VTE Device Contraindication: N/A - Device Ordered VTE Drug Contraindication: N/A - Med Ordered
[2021-03-15 11:55] LABS: Glucose, Whole Blood 332 mg/dL (60-115)
[2021-03-15] MEDS: 0.9 % Sodium Chloride Flush 3 ML SYRINGE IVFLUSH (11:58)
[2021-03-15 12:00] VITALS: BP 117/58; PULSE 62; RESP 18; TEMP 36.7; O2SAT 97
--- NOTE | 2021-03-15 15:39 | PM.PNGS ---
Subjective Subjective Date of Service: 03/15/21 Interval history: pt still complaining of ruq pain but afebrile and tolerating po diet. Physical Exam Vital Signs: Vital Signs: Last Vital Signs Temp 98.1 F 03/15/21 12:00 Pulse 62 03/15/21 12:00 Resp 18 03/15/21 12:00 BP 117/58 L 03/15/21 12:00 Pulse Ox 97 03/15/21 12:00 Body Mass Index 23.4 GI: Other: tender ruq mild no guarding or rebound active bowel sounds. Objective Data Active Medications Amlodipine Besylate (Amlodipine Besylate 10 Mg Tablet) 10 mg PO DAILY [facility]; Protocol Last Admin: 03/15/21 08:40 Dose: 10 mg Documented by: RENAE Aripiprazole (Aripiprazole 20 Mg Tablet) 20 mg PO BEDTIME [facility] Last Admin: 03/14/21 20:46 Dose: 20 mg Documented by: TEMO Carvedilol (Carvedilol 6.25 Mg Tablet) 6.25 mg PO BID [facility]; Protocol Last Admin: 03/15/21 08:40 Dose: 6.25 mg Documented by: RENAE Clonazepam (Clonazepam 0.5 Mg Tablet) 0.5 mg PO Q8H PRN PRN Reason: anxiety Dextrose (Dextrose 50 % 25 Gm/50 Ml Vial) 25 gm IVPUSH Q15M PRN; Protocol PRN Reason: per Hypoglycemia Standing Ord. Furosemide (Furosemide 20 Mg Tablet) 20 mg PO DAILY [facility]; Protocol Last Admin: 03/15/21 08:39 Dose: 20 mg Documented by: RENAE Gabapentin (Gabapentin 100 Mg Capsule) 100 mg PO BID [facility] Last Admin: 03/15/21 08:40 Dose: 100 mg Documented by: RENAE Glucose (Glucose Gel 15 Gm Gel..Gram.) 15 gm PO Q15M PRN; Protocol PRN Reason: per Hypoglycemia Standing Ord. Heparin Sodium (Porcine) (Heparin Sodium,Porcine 5,000 Unit/Ml Vial) 5,000 unit SUBCUT Q12H [facility] Last Admin: 03/15/21 11:59 Dose: 5,000 unit Documented by: RENAE Hydroxyzine HCl (Hydroxyzine Hcl 10 Mg Tablet) 10 mg PO Q8H PRN PRN Reason: Anxiety Piperacillin Sod/Tazobactam (Sod 3.375 gm/ Sodium Chloride) 50 mls @ 100 mls/hr IV Q6H [facility] Last Admin: 03/15/21 11:57 Dose: 100 mls/hr Documented by: RENAE Insulin Glargine (Insulin Glargine,Hum.Rec.Anlog 100 Unit/Ml 10 Ml Vial) 10 unit SUBCUT DAILY [facility] Last Admin: 03/15/21 08:41 Dose: 10 unit Documented by: RENAE Insulin Human Lispro (Insulin Lispro 100 Unit/Ml 3 Ml Vial) 0 unit SUBCUT QIDACHS [facility]; Protocol Last Admin: 03/15/21 11:58 Dose: 8 unit Documented by: RENAE Morphine Sulfate (Morphine Sulfate 2 Mg/Ml Cartridge) 1 mg IVPUSH Q3H PRN; Protocol PRN Reason: Pain, Severe (Pain Scale 7-10) Last Admin: 03/15/21 08:50 Dose: 1 mg Documented by: RENAE Oxycodone HCl (Oxycodone Hcl Immed Release 5 Mg Tablet) 5 mg PO Q6H PRN PRN Reason: Pain, Moderate (Pain Scale 4-6 Last Admin: 03/12/21 13:11 Dose: 5 mg Documented by: FARHANA Pharmacy Consult (Consult Rx Perform Med Rec) 1 each MISCELLANE ONCE PRN PRN Reason: Consult order Sodium Chloride (0.9 % Sodium Chloride Flush 3 Ml Syringe) 3 ml IVFLUSH QSHIFT [facility] Last Admin: 03/15/21 11:58 Dose: 3 ml Documented by: RENAE Venlafaxine HCl (Venlafaxine Hcl Er 150 Mg Cap.Er.24h) 150 mg PO DAILY [facility] Last Admin: 03/15/21 08:40 Dose: 150 mg Documented by: RENAE Labs CBC & Chem 7: 03/15/21 05:48 03/13/21 06:00 Labs: Laboratory Results - last 24 hr 03/14/21 03/14/21 03/15/21 16:46 20:07 05:48 MCV 82.1 MCH 26.5 L MCHC 32.3 RDW 17.0 H Plt Count 95 L MPV Not Reportable Absolute Nucleated RBC 0.000 Nucleated RBC % (auto) 0.0 POC Glucose 209 H 207 H 03/15/21 03/15/21 07:43 11:48 MCV MCH MCHC RDW Plt Count MPV Absolute Nucleated RBC Nucleated RBC % (auto) POC Glucose 295 H 332 H Microbiology Microbiology Results: Microbiology 03/12/21 10:44 Blood Culture - Preliminary Blood - Venous No growth after 48 hours. Procedures Date of Service Date of Service: 03/15/21 Progress Note: A&P Assessment and plan (1) Intra-abdominal abscess: Status: Acute Assessment and Plan: pt iwth relatively small abscess ruq area - ? etiology but wbc today elevated,. pt abdo exam still relatively benign with some mild pain afebrile. cont with antibx. area small and not amenable to interventional drainage. Fall Risk Details Current Medications: Current Medications Amlodipine Besylate (Amlodipine Besylate 10 Mg Tablet) 10 mg PO DAILY [facility]; Protocol Last Admin: 03/15/21 08:40 Dose: 10 mg Documented by: Aripiprazole (Aripiprazole 20 Mg Tablet) 20 mg PO BEDTIME [facility] Last Admin: 03/14/21 20:46 Dose: 20 mg Documented by: Carvedilol (Carvedilol 6.25 Mg Tablet) 6.25 mg PO BID [facility]; Protocol Last Admin: 03/15/21 08:40 Dose: 6.25 mg Documented by: Clonazepam (Clonazepam 0.5 Mg Tablet) 0.5 mg PO Q8H PRN PRN Reason: anxiety Dextrose (Dextrose 50 % 25 Gm/50 Ml Vial) 25 gm IVPUSH Q15M PRN; Protocol PRN Reason: per Hypoglycemia Standing Ord. Furosemide (Furosemide 20 Mg Tablet) 20 mg PO DAILY [facility]; Protocol Last Admin: 03/15/21 08:39 Dose: 20 mg Documented by: Gabapentin (Gabapentin 100 Mg Capsule) 100 mg PO BID [facility] Last Admin: 03/15/21 08:40 Dose: 100 mg Documented by: Glucose (Glucose Gel 15 Gm Gel..Gram.) 15 gm PO Q15M PRN; Protocol PRN Reason: per Hypoglycemia Standing Ord. Heparin Sodium (Porcine) (Heparin Sodium,Porcine 5,000 Unit/Ml Vial) 5,000 unit SUBCUT Q12H [facility] Last Admin: 03/15/21 11:59 Dose: 5,000 unit Documented by: Hydroxyzine HCl (Hydroxyzine Hcl 10 Mg Tablet) 10 mg PO Q8H PRN PRN Reason: Anxiety Piperacillin Sod/Tazobactam (Sod 3.375 gm/ Sodium Chloride) 50 mls @ 100 mls/hr IV Q6H [facility] Last Admin: 03/15/21 11:57 Dose: 100 mls/hr Documented by: Insulin Glargine (Insulin Glargine,Hum.Rec.Anlog 100 Unit/Ml 10 Ml Vial) 10 unit SUBCUT DAILY [facility] Last Admin: 03/15/21 08:41 Dose: 10 unit Documented by: Insulin Human Lispro (Insulin Lispro 100 Unit/Ml 3 Ml Vial) 0 unit SUBCUT QIDACHS [facility]; Protocol Last Admin: 03/15/21 11:58 Dose: 8 unit Documented by: Morphine Sulfate (Morphine Sulfate 2 Mg/Ml Cartridge) 1 mg IVPUSH Q3H PRN; Protocol PRN Reason: Pain, Severe (Pain Scale 7-10) Last Admin: 03/15/21 08:50 Dose: 1 mg Documented by: Oxycodone HCl (Oxycodone Hcl Immed Release 5 Mg Tablet) 5 mg PO Q6H PRN PRN Reason: Pain, Moderate (Pain Scale 4-6 Last Admin: 03/12/21 13:11 Dose: 5 mg Documented by: Pharmacy Consult (Consult Rx Perform Med Rec) 1 each MISCELLANE ONCE PRN PRN Reason: Consult order Sodium Chloride (0.9 % Sodium Chloride Flush 3 Ml Syringe) 3 ml IVFLUSH QSHIFT [facility] Last Admin: 03/15/21 11:58 Dose: 3 ml Documented by: Venlafaxine HCl (Venlafaxine Hcl Er 150 Mg Cap.Er.24h) 150 mg PO DAILY [facility] Last Admin: 03/15/21 08:40 Dose: 150 mg Documented by: Time Spent With Patient Time: Total time spent is greater than 50% in coordination of care (as documented) at patient's floor/unit and/or counseling patient: Time with patient: 15 - 24 minutes Quality Stroke Does the patient have a stroke diagnosis?: No VTE Prior VTE?: No VTE Risk Level:: Medical - moderate - high VTE Device Contraindication: N/A - Device Ordered VTE Drug Contraindication: N/A - Med Ordered
[2021-03-15 16:00] VITALS: BP 121/56; PULSE 63; RESP 16; TEMP 36.3; O2SAT 97
[2021-03-15 16:42] LABS: Glucose, Whole Blood 173 mg/dL (60-115)
[2021-03-15 19:17] VITALS: BP 129/59; PULSE 70; RESP 16; TEMP 36.4; O2SAT 98
[2021-03-15 20:48] LABS: Glucose, Whole Blood 233 mg/dL (60-115)
[2021-03-15 21:31] VITALS: BP 129/59; PULSE 70
[2021-03-15] MEDS: ARIPiprazole 20 MG TABLET PO (21:31)
[2021-03-16] VITALS (8 sets, daily range): BP systolic 131–149; BP diastolic 58–68; PULSE 56–78; RESP 17–20; TEMP 36–36.6; O2SAT 95–98
[2021-03-16] MEDS: Piperacillin Sodium/Tazobactam 3.375 GM in 0.9 % Sodium Chloride 50 ML IV ×4 (01:30→19:19)
[2021-03-16] MEDS: Heparin Sodium,Porcine 5,000 UNIT/ML VIAL 5000 UNIT SUBCUT ×2 (01:30→12:40)
[2021-03-16 08:25] LABS: Glucose, Whole Blood 98 mg/dL (60-115)
--- NOTE | 2021-03-16 09:29 | P.PNIM_ITS ---
Subjective Subjective Date of Service: 03/16/21 Interval History: the patient was seen and evaluated this morning Laying in bed, feels better and tolerating diet Epigastric pain improving WBCs increasing still Blood sugar better controlled Denies any fever, chills or shortness of breath No reported other overnight events. Systemic review: No fever, chills but reports generalized weakness No chest pain, palpitation No shortness of breath or coughing Reporting epigastric pain with no nausea or vomiting No urinary symptoms No any rash or wounds Physical Exam Vital Signs: Vital Signs: Last Vital Signs Temp 96.8 F 03/16/21 07:37 Pulse 65 03/16/21 07:37 Resp 18 03/16/21 07:37 BP 135/63 03/16/21 07:37 Pulse Ox 96 03/16/21 07:37 Body Mass Index 23.4 Const: Other: Constitutional : Alert, oriented, not in distress Neck : Normal inspection, Supple Cardiovascular : RRR, S1 S2, no lower extremity edema Respiratory : Good bilateral air entry, no crackles, wheezes or rhonchi Gastrointestinal: soft, lax, Normal bowel sounds, mild epigastric tenderness Skin : Warm, Dry Neurological : Alert & oriented x3, No focal deficit Objective Data Active Medications Amlodipine Besylate (Amlodipine Besylate 10 Mg Tablet) 10 mg PO DAILY [facility]; Protocol Last Admin: 03/15/21 08:40 Dose: 10 mg Documented by: RENAE Aripiprazole (Aripiprazole 20 Mg Tablet) 20 mg PO BEDTIME [facility] Last Admin: 03/15/21 21:31 Dose: 20 mg Documented by: VENITA Carvedilol (Carvedilol 6.25 Mg Tablet) 6.25 mg PO BID [facility]; Protocol Last Admin: 03/15/21 21:31 Dose: 6.25 mg Documented by: VENITA Clonazepam (Clonazepam 0.5 Mg Tablet) 0.5 mg PO Q8H PRN PRN Reason: anxiety Dextrose (Dextrose 50 % 25 Gm/50 Ml Vial) 25 gm IVPUSH Q15M PRN; Protocol PRN Reason: per Hypoglycemia Standing Ord. Furosemide (Furosemide 20 Mg Tablet) 20 mg PO DAILY [facility]; Protocol Last Admin: 03/15/21 08:39 Dose: 20 mg Documented by: RENAE Gabapentin (Gabapentin 100 Mg Capsule) 100 mg PO BID [facility] Last Admin: 03/15/21 21:31 Dose: 100 mg Documented by: VENITA Glucose (Glucose Gel 15 Gm Gel..Gram.) 15 gm PO Q15M PRN; Protocol PRN Reason: per Hypoglycemia Standing Ord. Heparin Sodium (Porcine) (Heparin Sodium,Porcine 5,000 Unit/Ml Vial) 5,000 unit SUBCUT Q12H [facility] Last Admin: 03/16/21 01:30 Dose: 5,000 unit Documented by: VENITA Hydroxyzine HCl (Hydroxyzine Hcl 10 Mg Tablet) 10 mg PO Q8H PRN PRN Reason: Anxiety Piperacillin Sod/Tazobactam (Sod 3.375 gm/ Sodium Chloride) 50 mls @ 100 mls/hr IV Q6H [facility] Last Admin: 03/16/21 05:56 Dose: 100 mls/hr Documented by: VENITA Insulin Glargine (Insulin Glargine,Hum.Rec.Anlog 100 Unit/Ml 10 Ml Vial) 10 unit SUBCUT DAILY [facility] Last Admin: 03/15/21 08:41 Dose: 10 unit Documented by: RENAE Insulin Human Lispro (Insulin Lispro 100 Unit/Ml 3 Ml Vial) 0 unit SUBCUT QIDACHS [facility]; Protocol Last Admin: 03/16/21 07:37 Dose: Not Given Documented by: RENAE Non-Admin Reason: No Insulin Coverage Morphine Sulfate (Morphine Sulfate 2 Mg/Ml Cartridge) 1 mg IVPUSH Q3H PRN; Protocol PRN Reason: Pain, Severe (Pain Scale 7-10) Last Admin: 03/15/21 08:50 Dose: 1 mg Documented by: RENAE Oxycodone HCl (Oxycodone Hcl Immed Release 5 Mg Tablet) 5 mg PO Q6H PRN PRN Reason: Pain, Moderate (Pain Scale 4-6 Last Admin: 03/12/21 13:11 Dose: 5 mg Documented by: FARHANA Pharmacy Consult (Consult Rx Perform Med Rec) 1 each MISCELLANE ONCE PRN PRN Reason: Consult order Sodium Chloride (0.9 % Sodium Chloride Flush 3 Ml Syringe) 3 ml IVFLUSH QSHIFT [facility] Last Admin: 03/16/21 01:31 Dose: Not Given Documented by: VENITA Non-Admin Reason: IV Running Venlafaxine HCl (Venlafaxine Hcl Er 150 Mg Cap.Er.24h) 150 mg PO DAILY [facility] Last Admin: 03/15/21 08:40 Dose: 150 mg Documented by: RENAE Labs CBC & Chem 7: 03/15/21 05:48 03/13/21 06:00 Labs: Laboratory Results - last 24 hr 03/15/21 03/15/21 03/15/21 11:48 16:19 20:28 POC Glucose 332 H 173 H 233 H 03/16/21 07:36 POC Glucose 98 Assessment and Plan (1) Leukocytosis: Status: Acute (2) Abdominal pain: Status: Acute (3) Acute hyperglycemia: Status: Acute Assessment and Plan: 71 year old women admitted by general surgery Intra-abdominal Hematoma versus abscess Epigastric pain 2/2 Intra-abdominal Hematoma versus abscess Management as per surgical team Continue Zosyn , consider Infectious Disease consult for antibiotic advice Repeat CT scan on 13/03 showed stable findings Hyperglycemia secondary to diabetes Continue Lantus insulin current dose sliding scale Advanced diet as tolerated Anemia no bleeding stable HH CAD hold plavix continue BB HTN Amlodipine Thanks for the consult will continue to monitor with you Quality Stroke Does the patient have a stroke diagnosis?: No VTE Prior VTE?: No VTE Risk Level:: Medical - moderate - high VTE Device Contraindication: N/A - Device Ordered VTE Drug Contraindication: N/A - Med Ordered
[2021-03-16] MEDS: Gabapentin 100 MG CAPSULE PO ×2 (09:39→20:44)
[2021-03-16] MEDS: Furosemide 20 MG TABLET PO (09:39)
[2021-03-16] MEDS: Venlafaxine HCl ER 150 MG CAP.ER.24H PO (09:39)
[2021-03-16] MEDS: Insulin Glargine,Hum.rec.anlog 100 UNIT/ML 10 ML VIAL 10 UNIT SUBCUT (09:40)
[2021-03-16] MEDS: carvediloL 6.25 MG TABLET PO ×2 (09:40→20:43)
[2021-03-16] MEDS: 0.9 % Sodium Chloride Flush 3 ML SYRINGE IVFLUSH ×2 (09:49→18:37)
[2021-03-16] MEDS: amLODIPine Besylate 10 MG TABLET PO (11:11)
[2021-03-16] MEDS: oxyCODONE HCl Immed Release 5 MG TABLET PO (11:15)
[2021-03-16 12:05] LABS: Glucose, Whole Blood 219 mg/dL (60-115)
[2021-03-16] MEDS: Insulin Lispro 100 UNIT/ML 3 ML VIAL SUBCUT ×2 (12:40→20:44)
--- NOTE | 2021-03-16 16:33 | P.PNGS_ITS ---
Subjective Subjective Date of Service: 03/16/21 Interval history: pt complaining of right knee pain, less abdomen tolerating po diet well cont to be afebrile. wbc up again Physical Exam Vital Signs: Vital Signs: Last Vital Signs Temp 97.3 F 03/16/21 11:45 Pulse 68 03/16/21 11:45 Resp 18 03/16/21 11:45 BP 131/58 L 03/16/21 11:45 Pulse Ox 97 03/16/21 11:45 Body Mass Index 23.4 GI: Other: soft mild tenderness no distension active bowel sounds Extrem: Other: right knee swollen and tender and fluctuant and warm painful to move. left knee normal in appearance and non tender Objective Data Active Medications Amlodipine Besylate (Amlodipine Besylate 10 Mg Tablet) 10 mg PO DAILY [facility]; Protocol Last Admin: 03/16/21 11:11 Dose: 10 mg Documented by: RENAE Aripiprazole (Aripiprazole 20 Mg Tablet) 20 mg PO BEDTIME SARAH Last Admin: 03/15/21 21:31 Dose: 20 mg Documented by: VENITA Carvedilol (Carvedilol 6.25 Mg Tablet) 6.25 mg PO BID [facility]; Protocol Last Admin: 03/16/21 09:40 Dose: 6.25 mg Documented by: RENAE Clonazepam (Clonazepam 0.5 Mg Tablet) 0.5 mg PO Q8H PRN PRN Reason: anxiety Dextrose (Dextrose 50 % 25 Gm/50 Ml Vial) 25 gm IVPUSH Q15M PRN; Protocol PRN Reason: per Hypoglycemia Standing Ord. Furosemide (Furosemide 20 Mg Tablet) 20 mg PO DAILY [facility]; Protocol Last Admin: 03/16/21 09:39 Dose: 20 mg Documented by: RENAE Gabapentin (Gabapentin 100 Mg Capsule) 100 mg PO BID [facility] Last Admin: 03/16/21 09:39 Dose: 100 mg Documented by: RENAE Glucose (Glucose Gel 15 Gm Gel..Gram.) 15 gm PO Q15M PRN; Protocol PRN Reason: per Hypoglycemia Standing Ord. Heparin Sodium (Porcine) (Heparin Sodium,Porcine 5,000 Unit/Ml Vial) 5,000 unit SUBCUT Q12H [facility] Last Admin: 03/16/21 12:40 Dose: 5,000 unit Documented by: RENAE Hydroxyzine HCl (Hydroxyzine Hcl 10 Mg Tablet) 10 mg PO Q8H PRN PRN Reason: Anxiety Piperacillin Sod/Tazobactam (Sod 3.375 gm/ Sodium Chloride) 50 mls @ 100 mls/hr IV Q6H [facility] Last Infusion: 03/16/21 14:38 Dose: 0 mls/hr Documented by: RENAE Insulin Glargine (Insulin Glargine,Hum.Rec.Anlog 100 Unit/Ml 10 Ml Vial) 10 unit SUBCUT DAILY [facility] Last Admin: 03/16/21 09:40 Dose: 10 unit Documented by: RENAE Insulin Human Lispro (Insulin Lispro 100 Unit/Ml 3 Ml Vial) 0 unit SUBCUT QIDACHS [facility]; Protocol Last Admin: 03/16/21 12:40 Dose: 4 unit Documented by: RENAE Morphine Sulfate (Morphine Sulfate 2 Mg/Ml Cartridge) 1 mg IVPUSH Q3H PRN; Protocol PRN Reason: Pain, Severe (Pain Scale 7-10) Last Admin: 03/15/21 08:50 Dose: 1 mg Documented by: RENAE Oxycodone HCl (Oxycodone Hcl Immed Release 5 Mg Tablet) 5 mg PO Q6H PRN PRN Reason: Pain, Moderate (Pain Scale 4-6 Last Admin: 03/16/21 11:15 Dose: 5 mg Documented by: ILIANA Pharmacy Consult (Consult Rx Perform Med Rec) 1 each MISCELLANE ONCE PRN PRN Reason: Consult order Sodium Chloride (0.9 % Sodium Chloride Flush 3 Ml Syringe) 3 ml IVFLUSH QSHIFT [facility] Last Admin: 03/16/21 09:49 Dose: 3 ml Documented by: RENAE Venlafaxine HCl (Venlafaxine Hcl Er 150 Mg Cap.Er.24h) 150 mg PO DAILY [facility] Last Admin: 03/16/21 09:39 Dose: 150 mg Documented by: RENAE Labs CBC & Chem 7: 03/15/21 05:48 03/13/21 06:00 Labs: Laboratory Results - last 24 hr 03/15/21 03/15/21 03/16/21 16:19 20:28 07:36 POC Glucose 173 H 233 H 98 03/16/21 11:44 POC Glucose 219 H Procedures Date of Service Date of Service: 03/16/21 Progress Note: A&P Assessment and plan (1) Swelling of knee joint, right: Status: Acute Assessment and Plan: pt complaining of right knee pain and it is warm and swollen and tender and this may be an issue with her rising wbc. d/w hospitalist team - will get xrays of knee and start vanco and ortho consult tomorrow as needed. (2) Intra-abdominal abscess: Status: Acute Assessment and Plan: pt was admitted and has fluid collection maybe small abscess in ruq gb fossa - s/p surgery there year ago. on broad antibx but wbc going up. ? if she may have knee issue - see [facility]ters for that. tolearting po diet and repeat ct scan showing collection stable a few days ago. doubt anything very concerning happening in abdomen Fall Risk Details Current Medications: Current Medications Amlodipine Besylate (Amlodipine Besylate 10 Mg Tablet) 10 mg PO DAILY [facility]; Protocol Last Admin: 03/16/21 11:11 Dose: 10 mg Documented by: Aripiprazole (Aripiprazole 20 Mg Tablet) 20 mg PO BEDTIME SARAH Last Admin: 03/15/21 21:31 Dose: 20 mg Documented by: Carvedilol (Carvedilol 6.25 Mg Tablet) 6.25 mg PO BID [facility]; Protocol Last Admin: 03/16/21 09:40 Dose: 6.25 mg Documented by: Clonazepam (Clonazepam 0.5 Mg Tablet) 0.5 mg PO Q8H PRN PRN Reason: anxiety Dextrose (Dextrose 50 % 25 Gm/50 Ml Vial) 25 gm IVPUSH Q15M PRN; Protocol PRN Reason: per Hypoglycemia Standing Ord. Furosemide (Furosemide 20 Mg Tablet) 20 mg PO DAILY [facility]; Protocol Last Admin: 03/16/21 09:39 Dose: 20 mg Documented by: Gabapentin (Gabapentin 100 Mg Capsule) 100 mg PO BID [facility] Last Admin: 03/16/21 09:39 Dose: 100 mg Documented by: Glucose (Glucose Gel 15 Gm Gel..Gram.) 15 gm PO Q15M PRN; Protocol PRN Reason: per Hypoglycemia Standing Ord. Heparin Sodium (Porcine) (Heparin Sodium,Porcine 5,000 Unit/Ml Vial) 5,000 unit SUBCUT Q12H [facility] Last Admin: 03/16/21 12:40 Dose: 5,000 unit Documented by: Hydroxyzine HCl (Hydroxyzine Hcl 10 Mg Tablet) 10 mg PO Q8H PRN PRN Reason: Anxiety Piperacillin Sod/Tazobactam (Sod 3.375 gm/ Sodium Chloride) 50 mls @ 100 mls/hr IV Q6H [facility] Last Infusion: 03/16/21 14:38 Dose: Infused Documented by: Insulin Glargine (Insulin Glargine,Hum.Rec.Anlog 100 Unit/Ml 10 Ml Vial) 10 unit SUBCUT DAILY [facility] Last Admin: 03/16/21 09:40 Dose: 10 unit Documented by: Insulin Human Lispro (Insulin Lispro 100 Unit/Ml 3 Ml Vial) 0 unit SUBCUT QIDACHS [facility]; Protocol Last Admin: 03/16/21 12:40 Dose: 4 unit Documented by: Morphine Sulfate (Morphine Sulfate 2 Mg/Ml Cartridge) 1 mg IVPUSH Q3H PRN; Protocol PRN Reason: Pain, Severe (Pain Scale 7-10) Last Admin: 03/15/21 08:50 Dose: 1 mg Documented by: Oxycodone HCl (Oxycodone Hcl Immed Release 5 Mg Tablet) 5 mg PO Q6H PRN PRN Reason: Pain, Moderate (Pain Scale 4-6 Last Admin: 03/16/21 11:15 Dose: 5 mg Documented by: Pharmacy Consult (Consult Rx Perform Med Rec) 1 each MISCELLANE ONCE PRN PRN Reason: Consult order Sodium Chloride (0.9 % Sodium Chloride Flush 3 Ml Syringe) 3 ml IVFLUSH QSHIFT [facility] Last Admin: 03/16/21 09:49 Dose: 3 ml Documented by: Venlafaxine HCl (Venlafaxine Hcl Er 150 Mg Cap.Er.24h) 150 mg PO DAILY [facility] Last Admin: 03/16/21 09:39 Dose: 150 mg Documented by: Time Spent With Patient Time: Total time spent is greater than 50% in coordination of care (as documented) at patient's floor/unit and/or counseling patient: Time with patient: Greater than 35 minutes Quality Stroke Does the patient have a stroke diagnosis?: No VTE Prior VTE?: No VTE Risk Level:: Medical - moderate - high VTE Device Contraindication: N/A - Device Ordered VTE Drug Contraindication: N/A - Med Ordered
[2021-03-16 16:54] LABS: Glucose, Whole Blood 132 mg/dL (60-115)
[2021-03-16 18:53] LABS: Anion Gap 14 (12-20); Blood Urea Nitrogen 9 mg/dL (9-16); Carbon Dioxide 25 mmol/L (22-29); Chloride 100 mmol/L (96-108); Creatinine Clr Calc Pharmacy 40.6; Estimated Glomerular Filt Rate 52; Glucose Random 278 mg/dL (60-115); Potassium 2.9 mmol/L (3.3-5.1); Sodium 136 mmol/L (135-145)
[2021-03-16 20:15] LABS: Glucose, Whole Blood 315 mg/dL (60-115)
--- NOTE | 2021-03-16 20:31 | PHA.PROG ---
Admission Date/Time: March 12, 2021 12:26 Indication: Bacteremia Weight in k kg Adjusted body weight in Kg: [place] body weight in Kg: Obesity Dosing Indication % IBW: Serum Creatinine - Last 168 Hours 03/12/21 03/13/21 03/16/21 10:36 06:00 18:26 Creatinine 1.41 H 1.13 1.05 Estimated CrCl and GFR - Last 168 Hours 03/12/21 03/13/21 03/16/21 10:36 06:00 18:26 Estim Creat Clear Calc 30.3 37.7 40.6 Estimated GFR 37 47 52 Vancomycin Loading Dose: 1250mg Current Vancomycin Dosing Regimen: 1000mg q24h Vancomycin Monitoring using AUC goal of 400 - 600 range with trough as surrogate marker: AUC 465, trough 13.8 Date and Time for next Vancomycin Level to be drawn: draw @0700 on 03/18 Pharmacist Comments on Vancomycin Plan: Vancomycin dosing will take advantage of [employer] as a clinical decision support tool that uses Bayesian modeling to calculate individual patient's pharmacokinetic parameters and forecast the patient's drug concentration time course with the target goal AUC 24 range of 400 - 600 mg/L/hr.
[2021-03-16] MEDS: vancomycin HCL 1,250 MG in 0.9 % Sodium Chloride 250 ML 166.67 MG IV (20:43)
[2021-03-16] MEDS: ARIPiprazole 20 MG TABLET PO (20:44)
--- NOTE | 2021-03-16 22:46 | P.CNID_ITS ---
History of Present Illness Data of Consult Service Date: 03/16/21 Requesting physician: Tay Pelayo Primary Care Provider: MD OLIVA Mccollum Reason for consult: abdominal collection fluid She presents with one to two days nausea and vomiting She has 4 x 2.4 cm fluid collection abdomen She feels better but epigastric discomfort Review of Systems Review of Systems: Yes all other systems are reviewed and are negative PMFSH Past Medical History Medical History Anxiety Atherosclerotic cardiovascular disease Cholecystitis Depression Diabetes type 1, uncontrolled Dyslipidemia Elevated liver function tests Essential hypertension Fibromyalgia Folliculitis Rona's disease History of myocardial infarction Hyperlipidemia, unspecified Hyperparathyroidism due to vitamin D deficiency Hypertension 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 Hypothyroidism Intestinal malabsorption following gastrectomy NSTEMI (non-ST elevated myocardial infarction) Obesity (BMI 30-39.9) Family History Family History Father No problems noted. Mother No problems noted. Family history: reviewed and not pertinent Surgical History Surgical History H/O gastric bypass History of bladder suspension procedure History of laparoscopic cholecystectomy Hx of appendectomy Status post laser cataract surgery of both eyes Social History Social History Household Members: Unknown / Unable to assess Housing: Unknown / Unable to assess Unable to assess alcohol history related to: Unable to respond Alcohol intake: never Patient Tobacco Use Status: Never used Tobacco Use of substances other than those prescribed or required for medical reasons: No Currently Displaying Signs/Symptoms of Drug Intoxication Withdrawal: No Advance Directives: No Advance Directives Information Provided: Yes Do you have thoughts of harming others: None Do you have a plan to hurt others: No Plan Recently lost weight without trying: No service: No Current occupational status: disabled Meds Allergies Allergy/AdvReac Type Severity Reaction Status Date / Time lorazepam [LORAZEPAM] Allergy Severe DELIRIUM Verified 02/23/21 10:34 celecoxib [From Celebrex] Allergy Intermediate ITCHING Verified 02/23/21 10:34 tramadol [TRAMADOL] Allergy Intermediate ITCHING Verified 02/23/21 10:34 zolpidem [Ambien] Allergy Unknown unknown Verified 02/23/21 10:34 Active Medications: Current Medications Amlodipine Besylate (Amlodipine Besylate 10 Mg Tablet) 10 mg PO DAILY [facility]; Protocol Last Admin: 03/16/21 11:11 Dose: 10 mg Documented by: Aripiprazole (Aripiprazole 20 Mg Tablet) 20 mg PO BEDTIME [facility] Last Admin: 03/16/21 20:44 Dose: 20 mg Documented by: Carvedilol (Carvedilol 6.25 Mg Tablet) 6.25 mg PO BID [facility]; Protocol Last Admin: 03/16/21 20:43 Dose: 6.25 mg Documented by: Clonazepam (Clonazepam 0.5 Mg Tablet) 0.5 mg PO Q8H PRN PRN Reason: anxiety Dextrose (Dextrose 50 % 25 Gm/50 Ml Vial) 25 gm IVPUSH Q15M PRN; Protocol PRN Reason: per Hypoglycemia Standing Ord. Furosemide (Furosemide 20 Mg Tablet) 20 mg PO DAILY [facility]; Protocol Last Admin: 03/16/21 09:39 Dose: 20 mg Documented by: Gabapentin (Gabapentin 100 Mg Capsule) 100 mg PO BID [facility] Last Admin: 03/16/21 20:44 Dose: 100 mg Documented by: Glucose (Glucose Gel 15 Gm Gel..Gram.) 15 gm PO Q15M PRN; Protocol PRN Reason: per Hypoglycemia Standing Ord. Heparin Sodium (Porcine) (Heparin Sodium,Porcine 5,000 Unit/Ml Vial) 5,000 unit SUBCUT Q12H [facility] Last Admin: 03/16/21 12:40 Dose: 5,000 unit Documented by: Hydroxyzine HCl (Hydroxyzine Hcl 10 Mg Tablet) 10 mg PO Q8H PRN PRN Reason: Anxiety Piperacillin Sod/Tazobactam (Sod 3.375 gm/ Sodium Chloride) 50 mls @ 100 mls/hr IV Q6H [facility] Last Infusion: 03/16/21 19:59 Dose: Infused Documented by: Vancomycin HCl 1,000 mg/ (Sodium Chloride) 270 mls @ 270 mls/hr IV Q24H [facility] Insulin Glargine (Insulin Glargine,Hum.Rec.Anlog 100 Unit/Ml 10 Ml Vial) 10 unit SUBCUT DAILY [facility] Last Admin: 03/16/21 09:40 Dose: 10 unit Documented by: Insulin Human Lispro (Insulin Lispro 100 Unit/Ml 3 Ml Vial) 0 unit SUBCUT QIDACHS [facility]; Protocol Last Admin: 03/16/21 20:44 Dose: 8 unit Documented by: Morphine Sulfate (Morphine Sulfate 2 Mg/Ml Cartridge) 1 mg IVPUSH Q3H PRN; Protocol PRN Reason: Pain, Severe (Pain Scale 7-10) Last Admin: 03/15/21 08:50 Dose: 1 mg Documented by: Oxycodone HCl (Oxycodone Hcl Immed Release 5 Mg Tablet) 5 mg PO Q6H PRN PRN Reason: Pain, Moderate (Pain Scale 4-6 Last Admin: 03/16/21 11:15 Dose: 5 mg Documented by: Pharmacy Consult (Consult Rx Perform Med Rec) 1 each MISCELLANE ONCE PRN PRN Reason: Consult order Pharmacy Consult (Consult Rx Vancomycin Dosing) 1 each MISCELLANE DAILY PRN PRN Reason: Consult order Sodium Chloride (0.9 % Sodium Chloride Flush 3 Ml Syringe) 3 ml IVFLUSH [facility] Last Admin: 03/16/21 18:37 Dose: 3 ml Documented by: Venlafaxine HCl (Venlafaxine Hcl Er 150 Mg Cap.Er.24h) 150 mg PO DAILY [facility] Last Admin: 03/16/21 09:39 Dose: 150 mg Documented by: Home Medications Medication Instructions Recorded Confirmed Last Taken Type venlafaxine 150 mg 150 mg PO DAILY cap 01/28/20 03/12/21 Unknown History capsule,extended release 24 hr (Effexor XR) aripiprazole 20 mg tablet 20 mg PO BEDTIME 02/17/20 03/12/21 Unknown History blood sugar diagnostic #10 ea 02/17/20 02/23/21 Unknown History gabapentin 100 mg capsule 100 mg PO BID 02/17/20 03/12/21 Unknown History hydroxyzine HCl 10 mg tablet 10 mg PO Q8H PRN tab 02/22/20 03/12/21 Unknown History prazosin 2 mg capsule 4 mg PO BEDTIME cap 05/12/20 03/12/21 Unknown History diclofenac sodium 75 mg 75 mg PO BID 08/28/20 03/12/21 Unknown History tablet,delayed release esomeprazole magnesium 40 mg 40 mg PO DAILY 08/28/20 03/12/21 Unknown History capsule,delayed release clonazepam 0.5 mg tablet 1 tab PO Q8H PRN 01/02/21 03/12/21 Unknown History insulin aspart 2 - 15 unit SUBCUT QIDACHS PRN 01/02/21 03/12/21 Unknown History (niacinamide)(U-100) 100 unit/mL(3 mL) subcutaneous pen (Fiasp FlexTouch U-100 Insulin) sucralfate 1 gram tablet 1 tab PO BID 01/02/21 03/12/21 Unknown History calcium citrate 200 mg (950 mg) 400 mg PO BID@1200,1800 03/12/21 03/12/21 Unknown History tablet insulin degludec 100 unit/mL (3 12 unit SUBCUT DAILY 03/12/21 03/12/21 Unknown History mL) subcutaneous pen (Tresiba FlexTouch U-100 insulin) Physical Exam Vital Signs: Vital Signs: Last Vital Signs Temp 97.9 F 03/16/21 19:23 Pulse 78 03/16/21 20:43 Resp 17 03/16/21 19:23 BP 143/65 H 03/16/21 20:43 Pulse Ox 97 03/16/21 19:23 Body Mass Index 23.4 Const: General: cooperative Eyes: General: appearance normal, both eyes and all related structures Resp: Effort & Inspection: normal respiratory effort Cardio: Rate: regular rate Rhythm: regular rhythm GI: Palpation (GI): Soft to palpation and Tenderness to palpation present (GI) (right lower quadrant) Skin: General skin exam: no rashes or lesions noted Results Labs CBC & Chem 7: 03/15/21 05:48 03/16/21 18:26 Labs: BMP 03/16/21 18:26 Sodium 136 Potassium 2.9 L D Chloride 100 Carbon Dioxide 25 BUN 9 D Creatinine 1.05 Calcium 8.0 L Microbiology Microbiology Results: Microbiology 03/12/21 10:44 Blood - Venous Blood Culture - Preliminary No growth after 48 hours. 03/12/21 10:36 Blood - Venous Blood Culture - Final Coag negative Staphylococcus Assessment and Plan (1) Intra-abdominal abscess: Status: Acute This seem more likely abscess than hematoma She has WBC 17,000 She is on Zosyn (2) Leukocytosis: Qualifiers: Leukocytosis type: unspecified Qualified Code(s): D72.829 - Elevated white blood cell count, unspecified Status: Acute Change to Merem and Vancomycin if WBC still elevated tomorrow CT abdomen and pelvis again if WBC still elevated tomorrow and IR drain likely
[2021-03-17] VITALS (8 sets, daily range): BP systolic 128–156; BP diastolic 57–71; PULSE 51–67; RESP 17–18; TEMP 36.1–36.8; O2SAT 93–98
[2021-03-17] MEDS: Piperacillin Sodium/Tazobactam 3.375 GM in 0.9 % Sodium Chloride 50 ML IV ×3 (00:28→12:01)
[2021-03-17] MEDS: 0.9 % Sodium Chloride Flush 3 ML SYRINGE IVFLUSH ×4 (00:28→21:49)
[2021-03-17] MEDS: Heparin Sodium,Porcine 5,000 UNIT/ML VIAL 5000 UNIT SUBCUT ×2 (00:28→12:00)
[2021-03-17 07:48] LABS: Glucose, Whole Blood 126 mg/dL (60-115)
--- NOTE | 2021-03-17 08:03 | PM.EVENT ---
Event Note Date of Service: 03/17/21 Event Note: Orthopedic evaluation at bedside. Patient is able to flex and extend the knee. No erythema. Minimal edema. Slight tenderness to palpation of the joint lines. Patient reacts similarly with exam of the opposite knee. Low concern for septic joint. X-rays reveal osteoarthritis. Formal consult note to follow.
--- NOTE | 2021-03-17 08:07 | PM.CNOR ---
History of Present Illness HPI Consult date: 03/17/21 Chief complaint: INTRA ABDOMINAL HEMATOMA VERSUS ABSCESS Narrative: Ms. Santana is a 71 yo female with gallbladder fossa abscess with improving symptoms being monitored by general surgery. The patient complains of a two day history of right knee pain. She denies any injury or trauma to the right lower extremity. Review of Systems Review of Systems: Yes all other systems are reviewed and are negative PMFSH Past Medical History Medical History Anxiety Atherosclerotic cardiovascular disease Cholecystitis Depression Diabetes type 1, uncontrolled Dyslipidemia Elevated liver function tests Essential hypertension Fibromyalgia Folliculitis Rona's disease History of myocardial infarction Hyperlipidemia, unspecified Hyperparathyroidism due to vitamin D deficiency Hypertension 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 Hypothyroidism Intestinal malabsorption following gastrectomy NSTEMI (non-ST elevated myocardial infarction) Obesity (BMI 30-39.9) Family History Family History Father No problems noted. Mother No problems noted. Family history: reviewed and not pertinent Surgical History Surgical History H/O gastric bypass History of bladder suspension procedure History of laparoscopic cholecystectomy Hx of appendectomy Status post laser cataract surgery of both eyes Social History Social History Household Members: Unknown / Unable to assess Housing: Unknown / Unable to assess Unable to assess alcohol history related to: Unable to respond Alcohol intake: never Patient Tobacco Use Status: Never used Tobacco Use of substances other than those prescribed or required for medical reasons: No Currently Displaying Signs/Symptoms of Drug Intoxication Withdrawal: No Advance Directives: No Advance Directives Information Provided: Yes Do you have thoughts of harming others: None Do you have a plan to hurt others: No Plan Recently lost weight without trying: No service: No Current occupational status: disabled Meds Allergies Allergy/AdvReac Type Severity Reaction Status Date / Time lorazepam [LORAZEPAM] Allergy Severe DELIRIUM Verified 02/23/21 10:34 celecoxib [From Celebrex] Allergy Intermediate ITCHING Verified 02/23/21 10:34 tramadol [TRAMADOL] Allergy Intermediate ITCHING Verified 02/23/21 10:34 zolpidem [Ambien] Allergy Unknown unknown Verified 02/23/21 10:34 Active Medications: Current Medications Amlodipine Besylate (Amlodipine Besylate 10 Mg Tablet) 10 mg PO DAILY [facility]; Protocol Last Admin: 03/16/21 11:11 Dose: 10 mg Documented by: Aripiprazole (Aripiprazole 20 Mg Tablet) 20 mg PO BEDTIME [facility] Last Admin: 03/16/21 20:44 Dose: 20 mg Documented by: Carvedilol (Carvedilol 6.25 Mg Tablet) 6.25 mg PO BID [facility]; Protocol Last Admin: 03/16/21 20:43 Dose: 6.25 mg Documented by: Clonazepam (Clonazepam 0.5 Mg Tablet) 0.5 mg PO Q8H PRN PRN Reason: anxiety Dextrose (Dextrose 50 % 25 Gm/50 Ml Vial) 25 gm IVPUSH Q15M PRN; Protocol PRN Reason: per Hypoglycemia Standing Ord. Furosemide (Furosemide 20 Mg Tablet) 20 mg PO DAILY [facility]; Protocol Last Admin: 03/16/21 09:39 Dose: 20 mg Documented by: Gabapentin (Gabapentin 100 Mg Capsule) 100 mg PO BID [facility] Last Admin: 03/16/21 20:44 Dose: 100 mg Documented by: Glucose (Glucose Gel 15 Gm Gel..Gram.) 15 gm PO Q15M PRN; Protocol PRN Reason: per Hypoglycemia Standing Ord. Heparin Sodium (Porcine) (Heparin Sodium,Porcine 5,000 Unit/Ml Vial) 5,000 unit SUBCUT Q12H [facility] Last Admin: 03/17/21 00:28 Dose: 5,000 unit Documented by: Hydroxyzine HCl (Hydroxyzine Hcl 10 Mg Tablet) 10 mg PO Q8H PRN PRN Reason: Anxiety Piperacillin Sod/Tazobactam (Sod 3.375 gm/ Sodium Chloride) 50 mls @ 100 mls/hr IV Q6H [facility] Last Infusion: 03/17/21 06:32 Dose: Infused Documented by: Vancomycin HCl 1,000 mg/ (Sodium Chloride) 270 mls @ 270 mls/hr IV Q24H [facility] Insulin Glargine (Insulin Glargine,Hum.Rec.Anlog 100 Unit/Ml 10 Ml Vial) 10 unit SUBCUT DAILY [facility] Last Admin: 03/16/21 09:40 Dose: 10 unit Documented by: Insulin Human Lispro (Insulin Lispro 100 Unit/Ml 3 Ml Vial) 0 unit SUBCUT QIDACHS [facility]; Protocol Last Admin: 03/16/21 20:44 Dose: 8 unit Documented by: Morphine Sulfate (Morphine Sulfate 2 Mg/Ml Cartridge) 1 mg IVPUSH Q3H PRN; Protocol PRN Reason: Pain, Severe (Pain Scale 7-10) Last Admin: 03/15/21 08:50 Dose: 1 mg Documented by: Oxycodone HCl (Oxycodone Hcl Immed Release 5 Mg Tablet) 5 mg PO Q6H PRN PRN Reason: Pain, Moderate (Pain Scale 4-6 Last Admin: 03/16/21 11:15 Dose: 5 mg Documented by: Pharmacy Consult (Consult Rx Perform Med Rec) 1 each MISCELLANE ONCE PRN PRN Reason: Consult order Pharmacy Consult (Consult Rx Vancomycin Dosing) 1 each MISCELLANE DAILY PRN PRN Reason: Consult order Sodium Chloride (0.9 % Sodium Chloride Flush 3 Ml Syringe) 3 ml IVFLUSH [facility] Last Admin: 03/17/21 00:28 Dose: 3 ml Documented by: Venlafaxine HCl (Venlafaxine Hcl Er 150 Mg Cap.Er.24h) 150 mg PO DAILY [facility] Last Admin: 03/16/21 09:39 Dose: 150 mg Documented by: Home Medications Medication Instructions Recorded Confirmed Last Taken Type venlafaxine 150 mg 150 mg PO DAILY cap 01/28/20 03/12/21 Unknown History capsule,extended release 24 hr (Effexor XR) aripiprazole 20 mg tablet 20 mg PO BEDTIME 02/17/20 03/12/21 Unknown History blood sugar diagnostic #10 ea 02/17/20 02/23/21 Unknown History gabapentin 100 mg capsule 100 mg PO BID 02/17/20 03/12/21 Unknown History hydroxyzine HCl 10 mg tablet 10 mg PO Q8H PRN tab 02/22/20 03/12/21 Unknown History prazosin 2 mg capsule 4 mg PO BEDTIME cap 05/12/20 03/12/21 Unknown History diclofenac sodium 75 mg 75 mg PO BID 08/28/20 03/12/21 Unknown History tablet,delayed release esomeprazole magnesium 40 mg 40 mg PO DAILY 08/28/20 03/12/21 Unknown History capsule,delayed release clonazepam 0.5 mg tablet 1 tab PO Q8H PRN 01/02/21 03/12/21 Unknown History insulin aspart 2 - 15 unit SUBCUT QIDACHS PRN 01/02/21 03/12/21 Unknown History (niacinamide)(U-100) 100 unit/mL(3 mL) subcutaneous pen (Fiasp FlexTouch U-100 Insulin) sucralfate 1 gram tablet 1 tab PO BID 01/02/21 03/12/21 Unknown History calcium citrate 200 mg (950 mg) 400 mg PO BID@1200,1800 03/12/21 03/12/21 Unknown History tablet insulin degludec 100 unit/mL (3 12 unit SUBCUT DAILY 03/12/21 03/12/21 Unknown History mL) subcutaneous pen (Tresiba FlexTouch U-100 insulin) Physical Exam Vital Signs: Vital Signs: Last Vital Signs Temp 97.9 F 03/17/21 07:33 Pulse 60 03/17/21 07:33 Resp 18 03/17/21 07:33 BP 133/57 L 03/17/21 07:33 Pulse Ox 98 03/17/21 07:33 Body Mass Index 23.4 Const: General: cooperative and no acute distress Orientation/consciousness: patient oriented x3 Resp: Effort & Inspection: normal respiratory effort and able to speak in complete sentences Cardio: Peripheral pulses: Peripheral pulses 2+ throughout Skin: General skin exam: no rashes or lesions noted Neuro: General: patient oriented x3 Extrem: Other: Right knee no ecchymosis, erythema. Minimal edema. No warmth to touch. Patient verbalizes global knee pain to all landmarks with palpation. However, she is able to flex and extend the knee with minimal effort. Sensation is intact. Pedal pulse intact. Results Labs Result Diagrams: 03/17/21 08:01 03/17/21 08:01 Labs: Abnormal lab results 03/16/21 03/16/21 03/16/21 Range/Units 11:44 16:46 18:26 Potassium 2.9 L D (3.3-5.1) mmol/L POC Glucose 219 H 132 H (60-115) mg/dL Random Glucose 278 H (60-115) mg/dL Calcium 8.0 L (8.4-10.2) mg/dL 03/16/21 03/17/21 Range/Units 20:11 07:30 Potassium (3.3-5.1) mmol/L POC Glucose 315 H 126 H (60-115) mg/dL Random Glucose (60-115) mg/dL Calcium (8.4-10.2) mg/dL H & H 03/12/21 03/13/21 03/14/21 Range/Units 10:36 06:00 05:30 Hgb 11.9 L 11.1 L 10.7 L (12.0-16.0) g/dl Hct 38.0 34.6 L 33.3 L (37.0-47.0) % 03/15/21 Range/Units 05:48 Hgb 10.4 L (12.0-16.0) g/dl Hct 32.2 L (37.0-47.0) % All other labs normal. Assessment and Plan (1) Osteoarthritis of right knee: Status: Acute Ms. Santana is a 71 yo female with gallbladder fossa abscess with improving symptoms being monitored by general surgery. The patient complains of a two day history of atruamatic right knee pain. X-rays obtained reveal right knee osteoarthritis. Unlikely septic joint as the patient is able to flex and extend the knee with mild pain. No erythema or warmth to touch on exam and the patient has minimal swelling about the right knee. She also complains of multiple other myalgias including neck pain. No additional orthopedic care needed at this time. Procedures Date of Service Date of Service: 03/17/21
[2021-03-17 08:33] LABS: Creatinine Clr Calc Pharmacy 52.6; Estimated Glomerular Filt Rate > 60
[2021-03-17 09:32] LABS: Hemoglobin 10.5 g/dl (12.0-16.0); MANUAL DIFF FLAG SCAN
[2021-03-17] MEDS: Furosemide 20 MG TABLET PO (09:33)
[2021-03-17] MEDS: Gabapentin 100 MG CAPSULE PO ×2 (09:33→21:15)
[2021-03-17] MEDS: Venlafaxine HCl ER 150 MG CAP.ER.24H PO (09:33)
[2021-03-17] MEDS: amLODIPine Besylate 10 MG TABLET PO (09:33)
[2021-03-17 09:34] LABS: Basophils Absolute Auto 0.1 X10*3/uL (0.0-0.2); Basophils Percent Auto 0.4 % (0-2); Eosinophils Absolute Auto 0.5 X10*3/uL (0.0-0.4); Eosinophils Percent Auto 3.7 % (0-4); Hematocrit 31.3 % (37.0-47.0); Imm Gran Abs Auto 0.11 X10*3/uL (0.00-0.03); Imm Gran Pct Auto 0.8 % (0.0-0.4); Lymphocytes Absolute Auto 2.6 X10*3/uL (1.2-4.9); Lymphocytes Percent Auto 18.2 % (20-40); Mean Corpuscular HGB Conc 33.5 g/dl (31.0-35.0); Mean Corpuscular Volume 80.5 fL (80.0-98.0); Monocytes Absolute Auto 1.2 X10*3/uL (0.1-1.2); Monocytes Percent Auto 8.7 % (2-11); Neutrophils Absolute Auto 9.7 x10*3/uL (2.0-8.3); Neutrophils Percent Auto 68.2 % (45-73); Red Blood Count 3.89 X10*6/uL (4.20-5.50); Red Cell Distribution Width 17.3 % (11.0-16.0); White Blood Count 14.2 X10*3/uL (4.8-10.8)
[2021-03-17] MEDS: carvediloL 6.25 MG TABLET PO ×2 (09:34→21:15)
[2021-03-17] MEDS: Insulin Glargine,Hum.rec.anlog 100 UNIT/ML 10 ML VIAL 10 UNIT SUBCUT (09:39)
[2021-03-17] MEDS: oxyCODONE HCl Immed Release 5 MG TABLET PO (09:50)
[2021-03-17 09:58] LABS: Platelet Count 77 X10*3/uL (160-400)
[2021-03-17] MEDS: vancomycin HCL 1,000 MG in 0.9 % Sodium Chloride 250 ML 270 MG IV (10:17)
[2021-03-17 10:42] LABS: SLIDE REVIEW VERIFIED
[2021-03-17 11:47] LABS: Glucose, Whole Blood 295 mg/dL (60-115)
[2021-03-17] MEDS: Insulin Lispro 100 UNIT/ML 3 ML VIAL SUBCUT ×3 (12:00→21:14)
--- NOTE | 2021-03-17 12:11 | HO.PM.IMPN ---
Subjective Subjective Date of Service: 03/17/21 Review of Systems Follow-up abdominal pain No with complaints of right neck pain that radiates up to her head Continued right knee pain, seen and evaluated by Orthopedic surgery, no procedures necessary at this time Denies chest pain, shortness of breath, nausea, vomiting, diarrhea All other systems are reviewed and are negative Physical Exam Vital Signs: Vital Signs: Last Vital Signs Temp 97.2 F 03/17/21 11:37 Pulse 67 03/17/21 11:37 Resp 18 03/17/21 11:37 BP 128/59 L 03/17/21 11:37 Pulse Ox 93 03/17/21 11:37 Body Mass Index 23.4 Appearing in no acute distress lung sounds are clear to auscultation heart regular rate rhythm, clear S1, S2 positive bowel sounds, abdomen is soft, nontender neuro patient is alert x3, no focal deficits MSK right knee pain. Right neck pain, seems msk Objective Data Active Medications Amlodipine Besylate (Amlodipine Besylate 10 Mg Tablet) 10 mg PO DAILY [facility]; Protocol Last Admin: 03/17/21 09:33 Dose: 10 mg Documented by: ZAHEER Aripiprazole (Aripiprazole 20 Mg Tablet) 20 mg PO BEDTIME [facility] Last Admin: 03/16/21 20:44 Dose: 20 mg Documented by: VENITA Carvedilol (Carvedilol 6.25 Mg Tablet) 6.25 mg PO BID [facility]; Protocol Last Admin: 03/17/21 09:34 Dose: 6.25 mg Documented by: ZAHEER Clonazepam (Clonazepam 0.5 Mg Tablet) 0.5 mg PO Q8H PRN PRN Reason: anxiety Dextrose (Dextrose 50 % 25 Gm/50 Ml Vial) 25 gm IVPUSH Q15M PRN; Protocol PRN Reason: per Hypoglycemia Standing Ord. Furosemide (Furosemide 20 Mg Tablet) 20 mg PO DAILY [facility]; Protocol Last Admin: 03/17/21 09:33 Dose: 20 mg Documented by: ZAHEER Gabapentin (Gabapentin 100 Mg Capsule) 100 mg PO BID [facility] Last Admin: 03/17/21 09:33 Dose: 100 mg Documented by: ZAHEER Glucose (Glucose Gel 15 Gm Gel..Gram.) 15 gm PO Q15M PRN; Protocol PRN Reason: per Hypoglycemia Standing Ord. Heparin Sodium (Porcine) (Heparin Sodium,Porcine 5,000 Unit/Ml Vial) 5,000 unit SUBCUT Q12H [facility] Last Admin: 03/17/21 12:00 Dose: 5,000 unit Documented by: ZAHEER Hydroxyzine HCl (Hydroxyzine Hcl 10 Mg Tablet) 10 mg PO Q8H PRN PRN Reason: Anxiety Piperacillin Sod/Tazobactam (Sod 3.375 gm/ Sodium Chloride) 50 mls @ 100 mls/hr IV Q6H [facility] Last Admin: 03/17/21 12:01 Dose: 100 mls/hr Documented by: ZAHEER Vancomycin HCl 1,000 mg/ (Sodium Chloride) 270 mls @ 270 mls/hr IV Q24H [facility] Last Infusion: 03/17/21 12:07 Dose: 0 mls/hr Documented by: ZAHEER Insulin Glargine (Insulin Glargine,Hum.Rec.Anlog 100 Unit/Ml 10 Ml Vial) 10 unit SUBCUT DAILY [facility] Last Admin: 03/17/21 09:39 Dose: 10 unit Documented by: ZAHEER Insulin Human Lispro (Insulin Lispro 100 Unit/Ml 3 Ml Vial) 0 unit SUBCUT QIDACHS [facility]; Protocol Last Admin: 03/17/21 12:00 Dose: 6 unit Documented by: ZAHEER Mineral Oil (Mineral Oil Enema 133 Ml Enema) 133 ml IN ONCE ONE Stop: 03/17/21 12:11 Morphine Sulfate (Morphine Sulfate 2 Mg/Ml Cartridge) 1 mg IVPUSH Q3H PRN; Protocol PRN Reason: Pain, Severe (Pain Scale 7-10) Last Admin: 03/15/21 08:50 Dose: 1 mg Documented by: RENAE Oxycodone HCl (Oxycodone Hcl Immed Release 5 Mg Tablet) 5 mg PO Q6H PRN PRN Reason: Pain, Moderate (Pain Scale 4-6 Last Admin: 03/17/21 09:50 Dose: 5 mg Documented by: ZAHEER Pharmacy Consult (Consult Rx Perform Med Rec) 1 each MISCELLANE ONCE PRN PRN Reason: Consult order Pharmacy Consult (Consult Rx Vancomycin Dosing) 1 each MISCELLANE DAILY PRN PRN Reason: Consult order Sodium Chloride (0.9 % Sodium Chloride Flush 3 Ml Syringe) 3 ml IVFLUSH QSHIFT [facility] Last Admin: 03/17/21 09:35 Dose: 3 ml Documented by: ZAHEER Venlafaxine HCl (Venlafaxine Hcl Er 150 Mg Cap.Er.24h) 150 mg PO DAILY [facility] Last Admin: 03/17/21 09:33 Dose: 150 mg Documented by: ZAHEER Labs CBC & Chem 7: 03/17/21 08:01 03/17/21 08:01 Labs: Laboratory Results - last 24 hr 03/16/21 03/16/21 03/16/21 16:46 18:26 20:11 MCV MCH MCHC RDW Plt Count MPV Immature Gran % (Auto) Neut % (Auto) Lymph % (Auto) [place] % (Auto) Eos % (Auto) Baso % (Auto) Lymph # (Auto) [place] # (Auto) Eos # (Auto) Baso # (Auto) Abs Immat Gran (auto) Absolute Neuts (auto) Absolute Nucleated RBC Nucleated RBC % (auto) Smear Tech's Comments Anion Gap 14 Estim Creat Clear Calc 40.6 Estimated GFR 52 POC Glucose 132 H 315 H Random Glucose 278 H Calcium 8.0 L 03/17/21 03/17/21 03/17/21 07:30 08:01 08:01 MCV 80.5 MCH 27.0 MCHC 33.5 RDW 17.3 H Plt Count 77 L MPV Not Reportable Immature Gran % (Auto) 0.8 H Neut % (Auto) 68.2 Lymph % (Auto) 18.2 L [place] % (Auto) 8.7 Eos % (Auto) 3.7 Baso % (Auto) 0.4 Lymph # (Auto) 2.6 [place] # (Auto) 1.2 Eos # (Auto) 0.5 H Baso # (Auto) 0.1 Abs Immat Gran (auto) 0.11 H Absolute Neuts (auto) 9.7 H Absolute Nucleated RBC 0.000 Nucleated RBC % (auto) 0.0 Smear Tech's Comments VERIFIED Anion Gap Estim Creat Clear Calc 52.6 Estimated GFR > 60 POC Glucose 126 H Random Glucose Calcium 03/17/21 11:36 MCV MCH MCHC RDW Plt Count MPV Immature Gran % (Auto) Neut % (Auto) Lymph % (Auto) [place] % (Auto) Eos % (Auto) Baso % (Auto) Lymph # (Auto) [place] # (Auto) Eos # (Auto) Baso # (Auto) Abs Immat Gran (auto) Absolute Neuts (auto) Absolute Nucleated RBC Nucleated RBC % (auto) Smear Tech's Comments Anion Gap Estim Creat Clear Calc Estimated GFR POC Glucose 295 H Random Glucose Calcium Assessment and Plan (1) Constipation: Status: Acute (2) Epigastric pain: Status: Acute (3) Neck pain: Status: Acute Assessment and Plan: 71 year old women admitted by general surgery Intra-abdominal Hematoma versus abscess Epigastric pain 2/2 Intra-abdominal Hematoma versus abscess Management as per surgical team Continue Zosyn Infectious Disease consult for antibiotic advice, consider Meropenem and Vanco if WBC still elevated Repeat CT scan on showed stable findings Constipation. May be contributing to pain Fleets enema Neck pain. Seems MSK lidocaine patch, hot packs Pain medication as needed Knee pain seen by ortho low concern for septic joints, osteoarthritis on xray Pain medication as needed Hyperglycemia secondary to diabetes Continue Lantus insulin current dose sliding scale Advanced diet as tolerated Anemia no bleeding stable HH CAD hold plavix? continue BB HTN Amlodipine DVT prophylaxis with heparin Attending Dr. Pagan Quality Stroke Does the patient have a stroke diagnosis?: No VTE Prior VTE?: No VTE Risk Level:: Medical - moderate - high VTE Device Contraindication: N/A - Device Ordered VTE Drug Contraindication: N/A - Med Ordered
--- NOTE | 2021-03-17 12:26 | PM.PNGS ---
Subjective Subjective Date of Service: 03/17/21 Physical Exam Vital Signs: Vital Signs: Last Vital Signs Temp 97.2 F 03/17/21 11:37 Pulse 67 03/17/21 11:37 Resp 18 03/17/21 11:37 BP 128/59 L 03/17/21 11:37 Pulse Ox 93 03/17/21 11:37 Body Mass Index 23.4 GI: Other: soft nontender Objective Data Active Medications Amlodipine Besylate (Amlodipine Besylate 10 Mg Tablet) 10 mg PO DAILY [facility]; Protocol Last Admin: 03/17/21 09:33 Dose: 10 mg Documented by: ZAHEER Aripiprazole (Aripiprazole 20 Mg Tablet) 20 mg PO BEDTIME [facility] Last Admin: 03/16/21 20:44 Dose: 20 mg Documented by: VENITA Carvedilol (Carvedilol 6.25 Mg Tablet) 6.25 mg PO BID [facility]; Protocol Last Admin: 03/17/21 09:34 Dose: 6.25 mg Documented by: ZAHEER Clonazepam (Clonazepam 0.5 Mg Tablet) 0.5 mg PO Q8H PRN PRN Reason: anxiety Dextrose (Dextrose 50 % 25 Gm/50 Ml Vial) 25 gm IVPUSH Q15M PRN; Protocol PRN Reason: per Hypoglycemia Standing Ord. Furosemide (Furosemide 20 Mg Tablet) 20 mg PO DAILY [facility]; Protocol Last Admin: 03/17/21 09:33 Dose: 20 mg Documented by: ZAHEER Gabapentin (Gabapentin 100 Mg Capsule) 100 mg PO BID [facility] Last Admin: 03/17/21 09:33 Dose: 100 mg Documented by: ZAHEER Glucose (Glucose Gel 15 Gm Gel..Gram.) 15 gm PO Q15M PRN; Protocol PRN Reason: per Hypoglycemia Standing Ord. Heparin Sodium (Porcine) (Heparin Sodium,Porcine 5,000 Unit/Ml Vial) 5,000 unit SUBCUT Q12H [facility] Last Admin: 03/17/21 12:00 Dose: 5,000 unit Documented by: ZAHEER Hydroxyzine HCl (Hydroxyzine Hcl 10 Mg Tablet) 10 mg PO Q8H PRN PRN Reason: Anxiety Piperacillin Sod/Tazobactam (Sod 3.375 gm/ Sodium Chloride) 50 mls @ 100 mls/hr IV Q6H [facility] Last Admin: 03/17/21 12:01 Dose: 100 mls/hr Documented by: ZAHEER Vancomycin HCl 1,000 mg/ (Sodium Chloride) 270 mls @ 270 mls/hr IV Q24H [facility] Last Infusion: 03/17/21 12:07 Dose: 0 mls/hr Documented by: ZAHEER Insulin Glargine (Insulin Glargine,Hum.Rec.Anlog 100 Unit/Ml 10 Ml Vial) 10 unit SUBCUT DAILY [facility] Last Admin: 03/17/21 09:39 Dose: 10 unit Documented by: ZAHEER Insulin Human Lispro (Insulin Lispro 100 Unit/Ml 3 Ml Vial) 0 unit SUBCUT QIDACHS [facility]; Protocol Last Admin: 03/17/21 12:00 Dose: 6 unit Documented by: ZAHEER Lidocaine (Lidocaine 4 % Patch Adh..Patch) 1 patch TRANSDERMA DAILY [facility]; Protocol Morphine Sulfate (Morphine Sulfate 2 Mg/Ml Cartridge) 1 mg IVPUSH Q3H PRN; Protocol PRN Reason: Pain, Severe (Pain Scale 7-10) Last Admin: 03/15/21 08:50 Dose: 1 mg Documented by: RENAE Pharmacy Consult (Consult Rx Perform Med Rec) 1 each MISCELLANE ONCE PRN PRN Reason: Consult order Pharmacy Consult (Consult Rx Vancomycin Dosing) 1 each MISCELLANE DAILY PRN PRN Reason: Consult order Sodium Chloride (0.9 % Sodium Chloride Flush 3 Ml Syringe) [facility] Last Admin: 03/17/21 09:35 Dose: 3 ml Documented by: ZAHEER Venlafaxine HCl (Venlafaxine Hcl Er 150 Mg Cap.Er.24h) 150 mg PO DAILY [facility] Last Admin: 03/17/21 09:33 Dose: 150 mg Documented by: ZAHEER Labs CBC & Chem 7: 03/17/21 08:01 03/17/21 08:01 Labs: Laboratory Results - last 24 hr 03/16/21 03/16/21 03/16/21 16:46 18:26 20:11 MCV MCH MCHC RDW Plt Count MPV Immature Gran % (Auto) Neut % (Auto) Lymph % (Auto) [place] % (Auto) Eos % (Auto) Baso % (Auto) Lymph # (Auto) [place] # (Auto) Eos # (Auto) Baso # (Auto) Abs Immat Gran (auto) Absolute Neuts (auto) Absolute Nucleated RBC Nucleated RBC % (auto) Smear Tech's Comments Anion Gap 14 Estim Creat Clear Calc 40.6 Estimated GFR 52 POC Glucose 132 H 315 H Random Glucose 278 H Calcium 8.0 L 03/17/21 03/17/21 03/17/21 07:30 08:01 08:01 MCV 80.5 MCH 27.0 MCHC 33.5 RDW 17.3 H Plt Count 77 L MPV Not Reportable Immature Gran % (Auto) 0.8 H Neut % (Auto) 68.2 Lymph % (Auto) 18.2 L [place] % (Auto) 8.7 Eos % (Auto) 3.7 Baso % (Auto) 0.4 Lymph # (Auto) 2.6 [place] # (Auto) 1.2 Eos # (Auto) 0.5 H Baso # (Auto) 0.1 Abs Immat Gran (auto) 0.11 H Absolute Neuts (auto) 9.7 H Absolute Nucleated RBC 0.000 Nucleated RBC % (auto) 0.0 Smear Tech's Comments VERIFIED Anion Gap Estim Creat Clear Calc 52.6 Estimated GFR > 60 POC Glucose 126 H Random Glucose Calcium 03/17/21 11:36 MCV MCH MCHC RDW Plt Count MPV Immature Gran % (Auto) Neut % (Auto) Lymph % (Auto) [place] % (Auto) Eos % (Auto) Baso % (Auto) Lymph # (Auto) [place] # (Auto) Eos # (Auto) Baso # (Auto) Abs Immat Gran (auto) Absolute Neuts (auto) Absolute Nucleated RBC Nucleated RBC % (auto) Smear Tech's Comments Anion Gap Estim Creat Clear Calc Estimated GFR POC Glucose 295 H Random Glucose Calcium Procedures Date of Service Date of Service: 03/17/21 Progress Note: A&P Assessment and plan (1) Intra-abdominal abscess: Status: Acute Assessment and Plan: 71 year old female with gb fossa abscess improving sx - wbc coming down antibiotics changed to vanco and meropenem as per ID for the collection - pt seen by ortho for the sebastián and not as bad today. she is afebrile tolerating po diet and having bowel movements so at this point no need for further work up. clinically improving. Fall Risk Details Current Medications: Current Medications Amlodipine Besylate (Amlodipine Besylate 10 Mg Tablet) 10 mg PO DAILY [facility]; Protocol Last Admin: 03/17/21 09:33 Dose: 10 mg Documented by: Aripiprazole (Aripiprazole 20 Mg Tablet) 20 mg PO BEDTIME [facility] Last Admin: 03/16/21 20:44 Dose: 20 mg Documented by: Carvedilol (Carvedilol 6.25 Mg Tablet) 6.25 mg PO BID [facility]; Protocol Last Admin: 03/17/21 09:34 Dose: 6.25 mg Documented by: Clonazepam (Clonazepam 0.5 Mg Tablet) 0.5 mg PO Q8H PRN PRN Reason: anxiety Dextrose (Dextrose 50 % 25 Gm/50 Ml Vial) 25 gm IVPUSH Q15M PRN; Protocol PRN Reason: per Hypoglycemia Standing Ord. Furosemide (Furosemide 20 Mg Tablet) 20 mg PO DAILY [facility]; Protocol Last Admin: 03/17/21 09:33 Dose: 20 mg Documented by: Gabapentin (Gabapentin 100 Mg Capsule) 100 mg PO BID [facility] Last Admin: 03/17/21 09:33 Dose: 100 mg Documented by: Glucose (Glucose Gel 15 Gm Gel..Gram.) 15 gm PO Q15M PRN; Protocol PRN Reason: per Hypoglycemia Standing Ord. Heparin Sodium (Porcine) (Heparin Sodium,Porcine 5,000 Unit/Ml Vial) 5,000 unit SUBCUT Q12H [facility] Last Admin: 03/17/21 12:00 Dose: 5,000 unit Documented by: Hydroxyzine HCl (Hydroxyzine Hcl 10 Mg Tablet) 10 mg PO Q8H PRN PRN Reason: Anxiety Piperacillin Sod/Tazobactam (Sod 3.375 gm/ Sodium Chloride) 50 mls @ 100 mls/hr IV Q6H [facility] Last Admin: 03/17/21 12:01 Dose: 100 mls/hr Documented by: Vancomycin HCl 1,000 mg/ (Sodium Chloride) 270 mls @ 270 mls/hr IV Q24H [facility] Last Infusion: 03/17/21 12:07 Dose: Infused Documented by: Insulin Glargine (Insulin Glargine,Hum.Rec.Anlog 100 Unit/Ml 10 Ml Vial) 10 unit SUBCUT DAILY [facility] Last Admin: 03/17/21 09:39 Dose: 10 unit Documented by: Insulin Human Lispro (Insulin Lispro 100 Unit/Ml 3 Ml Vial) 0 unit SUBCUT QIDACHS [facility]; Protocol Last Admin: 03/17/21 12:00 Dose: 6 unit Documented by: Lidocaine (Lidocaine 4 % Patch Adh..Patch) 1 patch TRANSDERMA DAILY [facility]; Protocol Morphine Sulfate (Morphine Sulfate 2 Mg/Ml Cartridge) 1 mg IVPUSH Q3H PRN; Protocol PRN Reason: Pain, Severe (Pain Scale 7-10) Last Admin: 03/15/21 08:50 Dose: 1 mg Documented by: Pharmacy Consult (Consult Rx Perform Med Rec) 1 each MISCELLANE ONCE PRN PRN Reason: Consult order Pharmacy Consult (Consult Rx Vancomycin Dosing) 1 each MISCELLANE DAILY PRN PRN Reason: Consult order Sodium Chloride (0.9 % Sodium Chloride Flush 3 Ml Syringe) 3 ml IVFLUSH QSHIFT [facility] Last Admin: 03/17/21 09:35 Dose: 3 ml Documented by: Venlafaxine HCl (Venlafaxine Hcl Er 150 Mg Cap.Er.24h) 150 mg PO DAILY [facility] Last Admin: 03/17/21 09:33 Dose: 150 mg Documented by: Time Spent With Patient Time: Total time spent is greater than 50% in coordination of care (as documented) at patient's floor/unit and/or counseling patient: Time with patient: less than 15 minutes Quality Stroke Does the patient have a stroke diagnosis?: No VTE Prior VTE?: No VTE Risk Level:: Medical - moderate - high VTE Device Contraindication: N/A - Device Ordered VTE Drug Contraindication: N/A - Med Ordered
[2021-03-17] MEDS: Lidocaine 4 % Patch ADH..PATCH 1 PATCH TRANSDERMA (13:37)
[2021-03-17 14:18] LABS: Anion Gap 15 (12-20); Blood Urea Nitrogen 7 mg/dL (9-16); Calcium 7.6 mg/dL (8.4-10.2); Carbon Dioxide 23 mmol/L (22-29); Chloride 99 mmol/L (96-108); Creatinine Clr Calc Pharmacy 42.7; Estimated Glomerular Filt Rate 55; Glucose Random 342 mg/dL (60-115); Potassium 2.7 mmol/L (3.3-5.1); Sodium 134 mmol/L (135-145)
[2021-03-17] MEDS: Potassium Chloride ER 20 MEQ TAB.ER.PRT 40 MEQ PO (15:30)
[2021-03-17 16:37] LABS: Glucose, Whole Blood 208 mg/dL (60-115)
[2021-03-17 20:36] LABS: Glucose, Whole Blood 253 mg/dL (60-115)
[2021-03-17] MEDS: ARIPiprazole 20 MG TABLET PO (21:15)
[2021-03-18] VITALS (8 sets, daily range): BP systolic 121–148; BP diastolic 53–66; PULSE 58–75; RESP 16–18; TEMP 36.5–37.7; O2SAT 93–97
[2021-03-18] MEDS: Heparin Sodium,Porcine 5,000 UNIT/ML VIAL 5000 UNIT SUBCUT (00:31)
[2021-03-18 07:16] LABS: Hematocrit 29.1 % (37.0-47.0); Hemoglobin 9.7 g/dl (12.0-16.0); Mean Corpuscular HGB Conc 33.3 g/dl (31.0-35.0); Mean Corpuscular Hemoglobin 26.8 pg (27.0-33.0); Mean Corpuscular Volume 80.4 fL (80.0-98.0); Red Blood Count 3.62 X10*6/uL (4.20-5.50); White Blood Count 17.1 X10*3/uL (4.8-10.8)
[2021-03-18 07:17] LABS: Platelet Count 88 X10*3/uL (160-400)
[2021-03-18 07:32] LABS: Vancomycin Trough 9.7 mcg/mL (10.0-20.0)
[2021-03-18 07:40] LABS: Anion Gap 12 (12-20); Blood Urea Nitrogen 7 mg/dL (9-16); Calcium 7.9 mg/dL (8.4-10.2); Carbon Dioxide 27 mmol/L (22-29); Chloride 99 mmol/L (96-108); Creatinine Clr Calc Pharmacy 50.7; Estimated Glomerular Filt Rate > 60; Glucose Random 258 mg/dL (60-115); Potassium 2.9 mmol/L (3.3-5.1); Sodium 135 mmol/L (135-145)
--- NOTE | 2021-03-18 07:52 | HE.PHANOTE ---
Vancomycin Addenem Trough was 9.7 2 hours prior to 3rd. With Vancomycin 1000 mg Q24H expecy AUC was 400. Since patient has bactermia, will increase dose to 1250 mg Q24H to create an expected AUC of 498 with a trough of 14.3. Sammi Sandhu, KristiD
[2021-03-18 07:55] LABS: Glucose, Whole Blood 228 mg/dL (60-115)
[2021-03-18] MEDS: Venlafaxine HCl ER 150 MG CAP.ER.24H PO (08:46)
[2021-03-18] MEDS: Furosemide 20 MG TABLET PO (08:46)
[2021-03-18] MEDS: amLODIPine Besylate 10 MG TABLET PO (08:47)
[2021-03-18] MEDS: carvediloL 6.25 MG TABLET PO ×2 (08:47→20:37)
[2021-03-18] MEDS: Gabapentin 100 MG CAPSULE PO ×2 (08:47→20:37)
[2021-03-18] MEDS: Lidocaine 4 % Patch ADH..PATCH 1 PATCH TRANSDERMA (08:47)
[2021-03-18] MEDS: Insulin Lispro 100 UNIT/ML 3 ML VIAL SUBCUT ×4 (08:48→20:38)
[2021-03-18] MEDS: 0.9 % Sodium Chloride Flush 3 ML SYRINGE IVFLUSH ×2 (08:48→16:36)
[2021-03-18] MEDS: Insulin Glargine,Hum.rec.anlog 100 UNIT/ML 10 ML VIAL 10 UNIT SUBCUT (08:49)
[2021-03-18] MEDS: vancomycin HCL 1,250 MG in 0.9 % Sodium Chloride 250 ML 166.67 MG IV (10:08)
--- NOTE | 2021-03-18 11:13 | HO.PM.IMPN ---
Subjective Subjective Date of Service: 03/18/21 Interval History: Patient complaining of neck pain, right knee pain, back pain and lower abdominal pain, no fevers no chills moving bowels tolerating diet. Review of Systems General no headache, no dizziness no fever chills. CVS no chest pain, no palpitation. Respiratory no cough, no sob. Gastrointestinal no nausea no vomiting, no diarrhea Physical Exam Vital Signs: Vital Signs: Last Vital Signs Temp 97.7 F 03/18/21 07:23 Pulse 75 03/18/21 08:47 Resp 18 03/18/21 07:23 BP 148/66 H 03/18/21 08:47 Pulse Ox 93 03/18/21 07:23 Body Mass Index 23.4 General awake ,alert x3 , resting comfortably in no acute distress. Neck no JVD. CVS regular rate rhythm, Respiratory lungs clear to auscultation, no respiratory distress, Gastrointestinal abdomen soft, mild lower bd discomfort, bowel sounds audible, no guarding , no rigidity. Extremities no edema. Neuro nonfocal Skin no rash Objective Data Active Medications Amlodipine Besylate (Amlodipine Besylate 10 Mg Tablet) 10 mg PO DAILY [facility]; Protocol Last Admin: 03/18/21 08:47 Dose: 10 mg Documented by: ZAHEER Aripiprazole (Aripiprazole 20 Mg Tablet) 20 mg PO BEDTIME [facility] Last Admin: 03/17/21 21:15 Dose: 20 mg Documented by: PRATIMA Carvedilol (Carvedilol 6.25 Mg Tablet) 6.25 mg PO BID [facility]; Protocol Last Admin: 03/18/21 08:47 Dose: 6.25 mg Documented by: ZAHEER Dextrose (Dextrose 50 % 25 Gm/50 Ml Vial) 25 gm IVPUSH Q15M PRN; Protocol PRN Reason: per Hypoglycemia Standing Ord. Furosemide (Furosemide 20 Mg Tablet) 20 mg PO DAILY [facility]; Protocol Last Admin: 03/18/21 08:46 Dose: 20 mg Documented by: ZAHEER Gabapentin (Gabapentin 100 Mg Capsule) 100 mg PO BID [facility] Last Admin: 03/18/21 08:47 Dose: 100 mg Documented by: ZAHEER Glucose (Glucose Gel 15 Gm Gel..Gram.) 15 gm PO Q15M PRN; Protocol PRN Reason: per Hypoglycemia Standing Ord. Hydroxyzine HCl (Hydroxyzine Hcl 10 Mg Tablet) 10 mg PO Q8H PRN PRN Reason: Anxiety Meropenem 1 gm/ Sodium (Chloride) 100 mls @ 100 mls/hr IV Q8H [facility] Last Infusion: 03/18/21 05:53 Dose: 0 mls/hr Documented by: PRATIMA Vancomycin HCl 1,250 mg/ (Sodium Chloride) 250 mls @ 166.667 mls/hr IV Q24H [facility] Last Admin: 03/18/21 10:08 Dose: 166.67 mls/hr Documented by: ZAHEER Insulin Glargine (Insulin Glargine,Hum.Rec.Anlog 100 Unit/Ml 10 Ml Vial) 10 unit SUBCUT DAILY [facility] Last Admin: 03/18/21 08:49 Dose: 10 unit Documented by: ZAHEER Insulin Human Lispro (Insulin Lispro 100 Unit/Ml 3 Ml Vial) 0 unit SUBCUT QIDACHS [facility]; Protocol Last Admin: 03/18/21 08:48 Dose: 4 unit Documented by: ZAHEER Lidocaine (Lidocaine 4 % Patch Adh..Patch) 1 patch TRANSDERMA DAILY [facility]; Protocol Last Admin: 03/18/21 08:47 Dose: 1 patch Documented by: ZAHEER Pharmacy Consult (Consult Rx Perform Med Rec) 1 each MISCELLANE ONCE PRN PRN Reason: Consult order Pharmacy Consult (Consult Rx Vancomycin Dosing) 1 each MISCELLANE DAILY PRN PRN Reason: Consult order Sodium Chloride (0.9 % Sodium Chloride Flush 3 Ml Syringe) 3 ml IVFLUSH QSHIFT [facility] Last Admin: 03/18/21 08:48 Dose: 3 ml Documented by: ZAHEER Venlafaxine HCl (Venlafaxine Hcl Er 150 Mg Cap.Er.24h) 150 mg PO DAILY [facility] Last Admin: 03/18/21 08:46 Dose: 150 mg Documented by: ZAHEER Labs CBC & Chem 7: 03/18/21 06:59 03/18/21 06:59 Labs: Laboratory Results - last 24 hr 03/17/21 03/17/21 03/17/21 11:36 12:59 16:31 MCV MCH MCHC RDW Plt Count MPV Absolute Nucleated RBC Nucleated RBC % (auto) Anion Gap 15 Estim Creat Clear Calc 42.7 Estimated GFR 55 POC Glucose 295 H 208 H Random Glucose 342 H Calcium 7.6 L Vancomycin Trough 03/17/21 03/18/21 03/18/21 20:09 06:59 06:59 MCV 80.4 MCH 26.8 L MCHC 33.3 RDW 17.0 H Plt Count 88 L MPV Not Reportable Absolute Nucleated RBC 0.000 Nucleated RBC % (auto) 0.0 Anion Gap Estim Creat Clear Calc Cancelled Estimated GFR Cancelled POC Glucose 253 H Random Glucose Calcium Vancomycin Trough 03/18/21 03/18/21 03/18/21 06:59 06:59 07:22 MCV MCH MCHC RDW Plt Count MPV Absolute Nucleated RBC Nucleated RBC % (auto) Anion Gap 12 Estim Creat Clear Calc 50.7 Estimated GFR > 60 POC Glucose 228 H Random Glucose 258 H Calcium 7.9 L Vancomycin Trough 9.7 L Microbiology Microbiology Results: Microbiology 03/12/21 10:44 Blood Culture - Final Blood - Venous No growth after 5 days. Assessment and Plan (1) Osteoarthritis of right knee: Status: Acute (2) Neck pain: Status: Acute (3) Leukocytosis: Status: Acute (4) Abdominal pain: Status: Acute Assessment and Plan: 71 year old women admitted by general surgery Intra-abdominal Hematoma versus abscess Abdominal pain resolving Status post recent cholecystectomy LFTs normalized no c/o epigastric pain c/o lower abd pain ct abd showed intra-abdominal Hematoma versus abscess Management as per surgical team on iv meropenem and IV vanco day 2 as per ID recommendation due to worsening WBC Repeat CT abdomen showed stable findings Patient has chronically elevated WBC count, follow CBC with diff at a.m. Thrombocytopenia Noted to have drop in platelet count will hold heparin, on meropenem started yesterday that can also cause thrombocytopenia, anemia will follow CBC closely, no evidence of sepsis Has chronic leukocytosis will consider heme consult Constipation. Likely due to narcotics had a bowel movement, will use by mouth Fleets enema, add stool softener Neck pain. Seems MSK? lidocaine patch, hot packs Pain medication as needed Knee pain seen by ortho low concern for septic joints, osteoarthritis on xray? Pain medication as needed, will use Tylenol and hot pack Hyperglycemia secondary to diabetes Continue Lantus insulin current dose sliding scale, continue diabetic diet Anemia no bleeding stable HH CAD hold plavix? continue BB HTN Amlodipine DVT prophylaxis will dc heparin due to drop in platelet count, will place on compression boots Quality Stroke Does the patient have a stroke diagnosis?: No VTE Prior VTE?: No VTE Risk Level:: Medical - moderate - high VTE Device Contraindication: N/A - Device Ordered VTE Drug Contraindication: N/A - Med Ordered
[2021-03-18 11:58] LABS: Glucose, Whole Blood 301 mg/dL (60-115)
[2021-03-18] MEDS: Acetaminophen 325 MG TABLET 650 MG PO (12:33)
[2021-03-18 16:28] LABS: Glucose, Whole Blood 281 mg/dL (60-115)
[2021-03-18 19:52] LABS: Glucose, Whole Blood 301 mg/dL (60-115)
[2021-03-18] MEDS: ARIPiprazole 20 MG TABLET PO (20:37)
--- NOTE | 2021-03-18 21:52 | PM.PNGS ---
Subjective Subjective Date of Service: 03/18/21 Interval history: pt complaining of pain first in right knee then in head then in ruq, eating all food no issue, tolerating no fevers. having bowel movements Physical Exam Vital Signs: Vital Signs: Last Vital Signs Temp 97.8 F 03/18/21 19:17 Pulse 70 03/18/21 20:37 Resp 17 03/18/21 19:17 BP 145/66 H 03/18/21 20:37 Pulse Ox 96 03/18/21 19:17 Body Mass Index 23.4 GI: Other: abdo is soft but tender in ruq, active bowel sounds non distended. Extrem: Other: right knee swollen and tender to palpation and movement Objective Data Active Medications Acetaminophen (Acetaminophen 325 Mg Tablet) 650 mg PO Q6H PRN PRN Reason: Fever Last Admin: 03/18/21 12:33 Dose: 650 mg Documented by: ZAHEER Amlodipine Besylate (Amlodipine Besylate 10 Mg Tablet) 10 mg PO DAILY [facility]; Protocol Last Admin: 03/18/21 08:47 Dose: 10 mg Documented by: ZAHEER Aripiprazole (Aripiprazole 20 Mg Tablet) 20 mg PO BEDTIME [facility] Last Admin: 03/18/21 20:37 Dose: 20 mg Documented by: TEMO Carvedilol (Carvedilol 6.25 Mg Tablet) 6.25 mg PO BID [facility]; Protocol Last Admin: 03/18/21 20:37 Dose: 6.25 mg Documented by: TEMO Dextrose (Dextrose 50 % 25 Gm/50 Ml Vial) 25 gm IVPUSH Q15M PRN; Protocol PRN Reason: per Hypoglycemia Standing Ord. Furosemide (Furosemide 20 Mg Tablet) 20 mg PO DAILY [facility]; Protocol Last Admin: 03/18/21 08:46 Dose: 20 mg Documented by: ZAHEER Gabapentin (Gabapentin 100 Mg Capsule) 100 mg PO BID [facility] Last Admin: 03/18/21 20:37 Dose: 100 mg Documented by: TEMO Glucose (Glucose Gel 15 Gm Gel..Gram.) 15 gm PO Q15M PRN; Protocol PRN Reason: per Hypoglycemia Standing Ord. Hydroxyzine HCl (Hydroxyzine Hcl 10 Mg Tablet) 10 mg PO Q8H PRN PRN Reason: Anxiety Meropenem 1 gm/ Sodium (Chloride) 100 mls @ 100 mls/hr IV Q8H [facility] Last Admin: 03/18/21 20:37 Dose: 100 mls/hr Documented by: TEMO Vancomycin HCl 1,250 mg/ (Sodium Chloride) 250 mls @ 166.667 mls/hr IV Q24H [facility] Last Infusion: 03/18/21 11:45 Dose: 0 mls/hr Documented by: ZAHEER Insulin Glargine (Insulin Glargine,Hum.Rec.Anlog 100 Unit/Ml 10 Ml Vial) 10 unit SUBCUT DAILY [facility] Last Admin: 03/18/21 08:49 Dose: 10 unit Documented by: ZAHEER Insulin Human Lispro (Insulin Lispro 100 Unit/Ml 3 Ml Vial) 0 unit SUBCUT QIDACHS [facility]; Protocol Last Admin: 03/18/21 20:38 Dose: 8 unit Documented by: TEMO Lidocaine (Lidocaine 4 % Patch Adh..Patch) 1 patch TRANSDERMA DAILY [facility]; Protocol Last Admin: 03/18/21 08:47 Dose: 1 patch Documented by: ZAHEER Pharmacy Consult (Consult Rx Perform Med Rec) 1 each MISCELLANE ONCE PRN PRN Reason: Consult order Pharmacy Consult (Consult Rx Vancomycin Dosing) 1 each MISCELLANE DAILY PRN PRN Reason: Consult order Sodium Chloride (0.9 % Sodium Chloride Flush 3 Ml Syringe) 3 ml IVFLUSH QSHIFT [facility] Last Admin: 03/18/21 16:36 Dose: 3 ml Documented by: ZAHEER Venlafaxine HCl (Venlafaxine Hcl Er 150 Mg Cap.Er.24h) 150 mg PO DAILY [facility] Last Admin: 03/18/21 08:46 Dose: 150 mg Documented by: ZAHEER Labs CBC & Chem 7: 03/18/21 06:59 03/18/21 06:59 Labs: Laboratory Results - last 24 hr 03/18/21 03/18/21 03/18/21 06:59 06:59 06:59 MCV 80.4 MCH 26.8 L MCHC 33.3 RDW 17.0 H Plt Count 88 L MPV Not Reportable Absolute Nucleated RBC 0.000 Nucleated RBC % (auto) 0.0 Anion Gap Estim Creat Clear Calc Cancelled Estimated GFR Cancelled POC Glucose Random Glucose Calcium Vancomycin Trough 9.7 L 03/18/21 03/18/21 03/18/21 06:59 07:22 11:35 MCV MCH MCHC RDW Plt Count MPV Absolute Nucleated RBC Nucleated RBC % (auto) Anion Gap 12 Estim Creat Clear Calc 50.7 Estimated GFR > 60 POC Glucose 228 H 301 H Random Glucose 258 H Calcium 7.9 L Vancomycin Trough 03/18/21 03/18/21 16:08 19:21 MCV MCH MCHC RDW Plt Count MPV Absolute Nucleated RBC Nucleated RBC % (auto) Anion Gap Estim Creat Clear Calc Estimated GFR POC Glucose 281 H 301 H Random Glucose Calcium Vancomycin Trough Procedures Date of Service Date of Service: 03/18/21 Progress Note: A&P Assessment and plan (1) Intra-abdominal abscess: Status: Acute Assessment and Plan: pt sp lap olman few weeks ago and with ruq collection - probable small abscess - wbc up and down - has some ruq pain but afeb and tole po diet and bowel movements - changed antibx to vanco and meropenem as per id. plts decreasing -?etiology - holding heparin pt may need repeat imaging if wbc stays up to reeval collection and check for potential of drainage -? u/s vs repeat ct scan appreciate med team following for other issues. Fall Risk Details Current Medications: Current Medications Acetaminophen (Acetaminophen 325 Mg Tablet) 650 mg PO Q6H PRN PRN Reason: Fever Last Admin: 03/18/21 12:33 Dose: 650 mg Documented by: Amlodipine Besylate (Amlodipine Besylate 10 Mg Tablet) 10 mg PO DAILY [facility]; Protocol Last Admin: 03/18/21 08:47 Dose: 10 mg Documented by: Aripiprazole (Aripiprazole 20 Mg Tablet) 20 mg PO BEDTIME [facility] Last Admin: 03/18/21 20:37 Dose: 20 mg Documented by: Carvedilol (Carvedilol 6.25 Mg Tablet) 6.25 mg PO BID [facility]; Protocol Last Admin: 03/18/21 20:37 Dose: 6.25 mg Documented by: Dextrose (Dextrose 50 % 25 Gm/50 Ml Vial) 25 gm IVPUSH Q15M PRN; Protocol PRN Reason: per Hypoglycemia Standing Ord. Furosemide (Furosemide 20 Mg Tablet) 20 mg PO DAILY [facility]; Protocol Last Admin: 03/18/21 08:46 Dose: 20 mg Documented by: Gabapentin (Gabapentin 100 Mg Capsule) 100 mg PO BID [facility] Last Admin: 03/18/21 20:37 Dose: 100 mg Documented by: Glucose (Glucose Gel 15 Gm Gel..Gram.) 15 gm PO Q15M PRN; Protocol PRN Reason: per Hypoglycemia Standing Ord. Hydroxyzine HCl (Hydroxyzine Hcl 10 Mg Tablet) 10 mg PO Q8H PRN PRN Reason: Anxiety Meropenem 1 gm/ Sodium (Chloride) 100 mls @ 100 mls/hr IV Q8H [facility] Last Admin: 03/18/21 20:37 Dose: 100 mls/hr Documented by: Vancomycin HCl 1,250 mg/ (Sodium Chloride) 250 mls @ 166.667 mls/hr IV Q24H [facility] Last Infusion: 03/18/21 11:45 Dose: Infused Documented by: Insulin Glargine (Insulin Glargine,Hum.Rec.Anlog 100 Unit/Ml 10 Ml Vial) 10 unit SUBCUT DAILY [facility] Last Admin: 03/18/21 08:49 Dose: 10 unit Documented by: Insulin Human Lispro (Insulin Lispro 100 Unit/Ml 3 Ml Vial) 0 unit SUBCUT QIDACHS [facility]; Protocol Last Admin: 03/18/21 20:38 Dose: 8 unit Documented by: Lidocaine (Lidocaine 4 % Patch Adh..Patch) 1 patch TRANSDERMA DAILY [facility]; Protocol Last Admin: 03/18/21 08:47 Dose: 1 patch Documented by: Pharmacy Consult (Consult Rx Perform Med Rec) 1 each MISCELLANE ONCE PRN PRN Reason: Consult order Pharmacy Consult (Consult Rx Vancomycin Dosing) 1 each MISCELLANE DAILY PRN PRN Reason: Consult order Sodium Chloride (0.9 % Sodium Chloride Flush 3 Ml Syringe) 3 ml IVFLUSH QSHIFT [facility] Last Admin: 03/18/21 16:36 Dose: 3 ml Documented by: Venlafaxine HCl (Venlafaxine Hcl Er 150 Mg Cap.Er.24h) 150 mg PO DAILY [facility] Last Admin: 03/18/21 08:46 Dose: 150 mg Documented by: Time Spent With Patient Time: Total time spent is greater than 50% in coordination of care (as documented) at patient's floor/unit and/or counseling patient: Time with patient: 25 - 35 minutes Quality Stroke Does the patient have a stroke diagnosis?: No VTE Prior VTE?: No VTE Risk Level:: Medical - moderate - high VTE Device Contraindication: N/A - Device Ordered VTE Drug Contraindication: N/A - Med Ordered
[2021-03-19] VITALS (7 sets, daily range): BP systolic 117–137; BP diastolic 55–69; PULSE 57–75; RESP 16–18; TEMP 36.3–37.2; O2SAT 92–98
[2021-03-19] MEDS: 0.9 % Sodium Chloride Flush 3 ML SYRINGE IVFLUSH ×4 (01:05→20:39)
[2021-03-19 04:41] LABS: Eosinophils Absolute Auto 0.1 X10*3/uL (0.0-0.4); Eosinophils Percent Auto 0.5 % (0-4); Hemoglobin 9.8 g/dl (12.0-16.0); MANUAL DIFF FLAG SCAN; Mean Corpuscular Hemoglobin 26.6 pg (27.0-33.0); PLT ABN DIST 1; Red Blood Count 3.69 X10*6/uL (4.20-5.50); SCAN SMEAR FLAG 1
[2021-03-19 04:43] LABS: Basophils Absolute Auto 0.1 X10*3/uL (0.0-0.2); Basophils Percent Auto 0.4 % (0-2); Hematocrit 29.3 % (37.0-47.0); Imm Gran Abs Auto 0.17 X10*3/uL (0.00-0.03); Imm Gran Pct Auto 0.9 % (0.0-0.4); Lymphocytes Absolute Auto 2.1 X10*3/uL (1.2-4.9); Lymphocytes Percent Auto 10.9 % (20-40); Mean Corpuscular HGB Conc 33.4 g/dl (31.0-35.0); Mean Corpuscular Volume 79.4 fL (80.0-98.0); Monocytes Absolute Auto 2.2 X10*3/uL (0.1-1.2); Monocytes Percent Auto 11.1 % (2-11); Neutrophils Percent Auto 76.2 % (45-73); Platelet Count 132 X10*3/uL (160-400); Red Cell Distribution Width 16.7 % (11.0-16.0); White Blood Count 19.6 X10*3/uL (4.8-10.8)
[2021-03-19 05:02] LABS: Anion Gap 14 (12-20); Blood Urea Nitrogen 8 mg/dL (9-16); Calcium 7.8 mg/dL (8.4-10.2); Carbon Dioxide 27 mmol/L (22-29); Chloride 96 mmol/L (96-108); Creatinine Clr Calc Pharmacy 52.6; Estimated Glomerular Filt Rate > 60; Glucose Random 236 mg/dL (60-115); Potassium 2.9 mmol/L (3.3-5.1); Sodium 134 mmol/L (135-145)
[2021-03-19 05:39] LABS: SLIDE REVIEW VERIFIED
[2021-03-19 07:38] LABS: Glucose, Whole Blood 274 mg/dL (60-115)
[2021-03-19] MEDS: Acetaminophen 325 MG TABLET 650 MG PO ×2 (07:47→20:44)
[2021-03-19] MEDS: Gabapentin 100 MG CAPSULE PO ×2 (07:48→20:38)
[2021-03-19] MEDS: Insulin Lispro 100 UNIT/ML 3 ML VIAL SUBCUT ×4 (07:48→20:38)
[2021-03-19] MEDS: Venlafaxine HCl ER 150 MG CAP.ER.24H PO (07:48)
[2021-03-19] MEDS: Furosemide 20 MG TABLET PO (07:48)
[2021-03-19] MEDS: amLODIPine Besylate 10 MG TABLET PO (07:48)
[2021-03-19] MEDS: carvediloL 6.25 MG TABLET PO ×2 (07:48→20:38)
--- NOTE | 2021-03-19 08:38 | PM.PNGS ---
Subjective Subjective Date of Service: 03/20/21 Interval history: Denies abdominal pain She complains of pain on both lower extremities and feet Says she is unable to walk because of this Tolerating diet well Physical Exam Vital Signs: Vital Signs: Last Vital Signs Temp 98.7 F 03/19/21 07:26 Pulse 75 03/19/21 07:26 Resp 18 03/19/21 07:26 BP 137/69 03/19/21 07:26 Pulse Ox 95 03/19/21 07:26 Body Mass Index 23.4 Const: Other: Complaints of pain on both feet General: no acute distress Eyes: Sclerae: abnormal sclerae Resp: Effort & Inspection: normal respiratory effort Cardio: Rate: regular rate GI: Palpation (GI): Soft to palpation, not firm and nontender Extrem: Other: No cellulitis both lower extremities, no obvious joint swelling Objective Data Active Medications Acetaminophen (Acetaminophen 325 Mg Tablet) 650 mg PO Q6H PRN PRN Reason: Fever Last Admin: 03/19/21 07:47 Dose: 650 mg Documented by: ALEXANDRIA Amlodipine Besylate (Amlodipine Besylate 10 Mg Tablet) 10 mg PO DAILY [facility]; Protocol Last Admin: 03/19/21 07:48 Dose: 10 mg Documented by: ALEXANDRIA Aripiprazole (Aripiprazole 20 Mg Tablet) 20 mg PO BEDTIME [facility] Last Admin: 03/18/21 20:37 Dose: 20 mg Documented by: TEMO Carvedilol (Carvedilol 6.25 Mg Tablet) 6.25 mg PO BID [facility]; Protocol Last Admin: 03/19/21 07:48 Dose: 6.25 mg Documented by: ALEXANDRIA Dextrose (Dextrose 50 % 25 Gm/50 Ml Vial) 25 gm IVPUSH Q15M PRN; Protocol PRN Reason: per Hypoglycemia Standing Ord. Furosemide (Furosemide 20 Mg Tablet) 20 mg PO DAILY [facility]; Protocol Last Admin: 03/19/21 07:48 Dose: 20 mg Documented by: ALEXANDRIA Gabapentin (Gabapentin 100 Mg Capsule) 100 mg PO BID [facility] Last Admin: 03/19/21 07:48 Dose: 100 mg Documented by: ALEXANDRIA Glucose (Glucose Gel 15 Gm Gel..Gram.) 15 gm PO Q15M PRN; Protocol PRN Reason: per Hypoglycemia Standing Ord. Hydroxyzine HCl (Hydroxyzine Hcl 10 Mg Tablet) 10 mg PO Q8H PRN PRN Reason: Anxiety Meropenem 1 gm/ Sodium (Chloride) 100 mls @ 100 mls/hr IV Q8H [facility] Last Infusion: 03/19/21 05:53 Dose: 0 mls/hr Documented by: TEMO Vancomycin HCl 1,250 mg/ (Sodium Chloride) 250 mls @ 166.667 mls/hr IV Q24H [facility] Last Infusion: 03/18/21 11:45 Dose: 0 mls/hr Documented by: ZAHEER Insulin Glargine (Insulin Glargine,Hum.Rec.Anlog 100 Unit/Ml 10 Ml Vial) 10 unit SUBCUT DAILY [facility] Last Admin: 03/18/21 08:49 Dose: 10 unit Documented by: ZAHEER Insulin Human Lispro (Insulin Lispro 100 Unit/Ml 3 Ml Vial) 0 unit SUBCUT QIDACHS [facility]; Protocol Last Admin: 03/19/21 07:48 Dose: 6 unit Documented by: ALEXANDRIA Lidocaine (Lidocaine 4 % Patch Adh..Patch) 1 patch TRANSDERMA DAILY [facility]; Protocol Last Admin: 03/18/21 08:47 Dose: 1 patch Documented by: ZAHEER Pharmacy Consult (Consult Rx Perform Med Rec) 1 each MISCELLANE ONCE PRN PRN Reason: Consult order Pharmacy Consult (Consult Rx Vancomycin Dosing) 1 each MISCELLANE DAILY PRN PRN Reason: Consult order Sodium Chloride (0.9 % Sodium Chloride Flush 3 Ml Syringe) 3 ml IVFLUSH QSHIFT [facility] Last Admin: 03/19/21 07:48 Dose: 3 ml Documented by: ALEXANDRIA Venlafaxine HCl (Venlafaxine Hcl Er 150 Mg Cap.Er.24h) 150 mg PO DAILY [facility] Last Admin: 03/19/21 07:48 Dose: 150 mg Documented by: ALEXANDRIA Labs CBC & Chem 7: 03/20/21 05:26 03/20/21 06:26 Labs: Laboratory Results - last 24 hr 03/18/21 03/18/21 03/18/21 11:35 16:08 19:21 MCV MCH MCHC RDW Plt Count MPV Immature Gran % (Auto) Neut % (Auto) Lymph % (Auto) [place] % (Auto) Eos % (Auto) Baso % (Auto) Lymph # (Auto) [place] # (Auto) Eos # (Auto) Baso # (Auto) Abs Immat Gran (auto) Absolute Neuts (auto) Absolute Nucleated RBC Nucleated RBC % (auto) Smear Tech's Comments Anion Gap Estim Creat Clear Calc Estimated GFR POC Glucose 301 H 281 H 301 H Random Glucose Calcium 03/19/21 03/19/21 03/19/21 04:12 04:12 07:32 MCV 79.4 L MCH 26.6 L MCHC 33.4 RDW 16.7 H Plt Count 132 L D MPV TNP Immature Gran % (Auto) 0.9 H Neut % (Auto) 76.2 H Lymph % (Auto) 10.9 L [place] % (Auto) 11.1 H Eos % (Auto) 0.5 Baso % (Auto) 0.4 Lymph # (Auto) 2.1 [place] # (Auto) 2.2 H Eos # (Auto) 0.1 Baso # (Auto) 0.1 Abs Immat Gran (auto) 0.17 H Absolute Neuts (auto) 15.0 H Absolute Nucleated RBC 0.000 Nucleated RBC % (auto) 0.0 Smear Tech's Comments VERIFIED Anion Gap 14 Estim Creat Clear Calc 52.6 Estimated GFR > 60 POC Glucose 274 H Random Glucose 236 H Calcium 7.8 L Procedures Date of Service Date of Service: 03/20/21 Progress Note: A&P Assessment and plan (1) Intra-abdominal abscess: Status: Acute Assessment and Plan: No fever Denies abdominal pain Her main complaint is lower extremity pain especially both feet WBC however elevated Repeat CT scan today Hospitalist following Replace potassium Fall Risk Details Current Medications: Current Medications Acetaminophen (Acetaminophen 325 Mg Tablet) 650 mg PO Q6H PRN PRN Reason: Fever Last Admin: 03/19/21 07:47 Dose: 650 mg Documented by: Amlodipine Besylate (Amlodipine Besylate 10 Mg Tablet) 10 mg PO DAILY [facility]; Protocol Last Admin: 03/19/21 07:48 Dose: 10 mg Documented by: Aripiprazole (Aripiprazole 20 Mg Tablet) 20 mg PO BEDTIME [facility] Last Admin: 03/18/21 20:37 Dose: 20 mg Documented by: Carvedilol (Carvedilol 6.25 Mg Tablet) 6.25 mg PO BID [facility]; Protocol Last Admin: 03/19/21 07:48 Dose: 6.25 mg Documented by: Dextrose (Dextrose 50 % 25 Gm/50 Ml Vial) 25 gm IVPUSH Q15M PRN; Protocol PRN Reason: per Hypoglycemia Standing Ord. Furosemide (Furosemide 20 Mg Tablet) 20 mg PO DAILY [facility]; Protocol Last Admin: 03/19/21 07:48 Dose: 20 mg Documented by: Gabapentin (Gabapentin 100 Mg Capsule) 100 mg PO BID [facility] Last Admin: 03/19/21 07:48 Dose: 100 mg Documented by: Glucose (Glucose Gel 15 Gm Gel..Gram.) 15 gm PO Q15M PRN; Protocol PRN Reason: per Hypoglycemia Standing Ord. Hydroxyzine HCl (Hydroxyzine Hcl 10 Mg Tablet) 10 mg PO Q8H PRN PRN Reason: Anxiety Meropenem 1 gm/ Sodium (Chloride) 100 mls @ 100 mls/hr IV Q8H [facility] Last Infusion: 03/19/21 05:53 Dose: Infused Documented by: Vancomycin HCl 1,250 mg/ (Sodium Chloride) 250 mls @ 166.667 mls/hr IV Q24H [facility] Last Infusion: 03/18/21 11:45 Dose: Infused Documented by: Insulin Glargine (Insulin Glargine,Hum.Rec.Anlog 100 Unit/Ml 10 Ml Vial) 10 unit SUBCUT DAILY [facility] Last Admin: 03/18/21 08:49 Dose: 10 unit Documented by: Insulin Human Lispro (Insulin Lispro 100 Unit/Ml 3 Ml Vial) 0 unit SUBCUT QIDACHS [facility]; Protocol Last Admin: 03/19/21 07:48 Dose: 6 unit Documented by: Lidocaine (Lidocaine 4 % Patch Adh..Patch) 1 patch TRANSDERMA DAILY [facility]; Protocol Last Admin: 03/18/21 08:47 Dose: 1 patch Documented by: Pharmacy Consult (Consult Rx Perform Med Rec) 1 each MISCELLANE ONCE PRN PRN Reason: Consult order Pharmacy Consult (Consult Rx Vancomycin Dosing) 1 each MISCELLANE DAILY PRN PRN Reason: Consult order Sodium Chloride (0.9 % Sodium Chloride Flush 3 Ml Syringe) 3 ml IVFLUSH QSHIFT [facility] Last Admin: 03/19/21 07:48 Dose: 3 ml Documented by: Venlafaxine HCl (Venlafaxine Hcl Er 150 Mg Cap.Er.24h) 150 mg PO DAILY [facility] Last Admin: 03/19/21 07:48 Dose: 150 mg Documented by: Time Spent With Patient Time: Total time spent is greater than 50% in coordination of care (as documented) at patient's floor/unit and/or counseling patient: Time with patient: 15 - 24 minutes Quality Stroke Does the patient have a stroke diagnosis?: No VTE Prior VTE?: No VTE Risk Level:: Medical - moderate - high VTE Device Contraindication: N/A - Device Ordered VTE Drug Contraindication: N/A - Med Ordered
[2021-03-19] MEDS: Insulin Glargine,Hum.rec.anlog 100 UNIT/ML 10 ML VIAL 10 UNIT SUBCUT (10:35)
[2021-03-19] MEDS: Lidocaine 4 % Patch ADH..PATCH 1 PATCH TRANSDERMA (10:35)
[2021-03-19] MEDS: vancomycin HCL 1,250 MG in 0.9 % Sodium Chloride 250 ML 166.67 MG IV (10:36)
[2021-03-19] MEDS: Potassium Chloride ER 20 MEQ TAB.ER.PRT 40 MEQ PO ×2 (10:36→20:37)
[2021-03-19 12:07] LABS: Glucose, Whole Blood 240 mg/dL (60-115)
--- NOTE | 2021-03-19 15:14 | MHC.CM.PN ---
WBC STILL TRENDING UP. NO PLAN FOR DC TODAY
[2021-03-19] MEDS: iohexoL 350 MG/ML 100 ML INFUS..BTL 85 ML IV (15:51)
--- NOTE | 2021-03-19 16:06 | P.PNIM_ITS ---
Subjective Subjective Date of Service: 03/19/21 Interval History: Being followed for abdominal pain, patient denies abdominal pain this a.m. but complaining of right knee pain and pain at base of neck, denies fever chills, no knee injury, tolerating diet no nausea vomiting no diarrhea. Review of Systems General no headache, no dizziness no fever chills.? CVS no chest pain, no palpitation.? Respiratory no cough, no sob.? Gastrointestinal no nausea no vomiting, no diarrhea Review of Systems: Yes all other systems are reviewed and are negative Physical Exam Vital Signs: Vital Signs: Last Vital Signs Temp 98.5 F 03/19/21 11:53 Pulse 57 03/19/21 11:53 Resp 18 03/19/21 11:53 BP 117/55 L 03/19/21 11:53 Pulse Ox 94 03/19/21 11:53 Body Mass Index 23.4 General awake ,rasheeda rt x3 , resting co mfortably in no ac cristina distress.? Nec k no JVD. Tendern ess back off head and neck no rednes s ,no swelling, no laceration CVS? r egular rate rhythm , Respiratory lung s clear to auscult ation, no respirat ory distress, Axel rointestinal abdom en soft, no abd di scomfort, bowel so unds audible, no g uarding , no rigid ity. Extremities n o edema. Right kne e swollen, no redn ess, no warmth, te nderness to palpat ion Neuro nonfocal Skin no rash Objective Data Active Medications Acetaminophen (Acetaminophen 325 Mg Tablet) 650 mg PO Q6H PRN PRN Reason: Fever Last Admin: 03/19/21 07:47 Dose: 650 mg Documented by: ALEXANDRIA Amlodipine Besylate (Amlodipine Besylate 10 Mg Tablet) 10 mg PO DAILY [facility]; Protocol Last Admin: 03/19/21 07:48 Dose: 10 mg Documented by: ALEXANDRIA Aripiprazole (Aripiprazole 20 Mg Tablet) 20 mg PO BEDTIME [facility] Last Admin: 03/18/21 20:37 Dose: 20 mg Documented by: TEMO Carvedilol (Carvedilol 6.25 Mg Tablet) 6.25 mg PO BID [facility]; Protocol Last Admin: 03/19/21 07:48 Dose: 6.25 mg Documented by: ALEXADNRIA Dextrose (Dextrose 50 % 25 Gm/50 Ml Vial) 25 gm IVPUSH Q15M PRN; Protocol PRN Reason: per Hypoglycemia Standing Ord. Furosemide (Furosemide 20 Mg Tablet) 20 mg PO DAILY [facility]; Protocol Last Admin: 03/19/21 07:48 Dose: 20 mg Documented by: ALEXANDRIA Gabapentin (Gabapentin 100 Mg Capsule) 100 mg PO BID [facility] Last Admin: 03/19/21 07:48 Dose: 100 mg Documented by: ALEXANDRIA Glucose (Glucose Gel 15 Gm Gel..Gram.) 15 gm PO Q15M PRN; Protocol PRN Reason: per Hypoglycemia Standing Ord. Hydroxyzine HCl (Hydroxyzine Hcl 10 Mg Tablet) 10 mg PO Q8H PRN PRN Reason: Anxiety Meropenem 1 gm/ Sodium (Chloride) 100 mls @ 100 mls/hr IV Q8H [facility] Last Infusion: 03/19/21 13:59 Dose: 0 mls/hr Documented by: ALEXANDRIA Vancomycin HCl 1,250 mg/ (Sodium Chloride) 250 mls @ 166.667 mls/hr IV Q24H [facility] Last Infusion: 03/19/21 12:06 Dose: 0 mls/hr Documented by: ALEXANDRIA Insulin Glargine (Insulin Glargine,Hum.Rec.Anlog 100 Unit/Ml 10 Ml Vial) 10 unit SUBCUT DAILY [facility] Last Admin: 03/19/21 10:35 Dose: 10 unit Documented by: ALEXANDRIA Insulin Human Lispro (Insulin Lispro 100 Unit/Ml 3 Ml Vial) 0 unit SUBCUT QIDACHS [facility]; Protocol Last Admin: 03/19/21 12:05 Dose: 4 unit Documented by: ALEXANDRIA Lidocaine (Lidocaine 4 % Patch Adh..Patch) 1 patch TRANSDERMA DAILY [facility]; Protocol Last Admin: 03/19/21 10:35 Dose: 1 patch Documented by: ALEXANDRIA Pharmacy Consult (Consult Rx Perform Med Rec) 1 each MISCELLANE ONCE PRN PRN Reason: Consult order Pharmacy Consult (Consult Rx Vancomycin Dosing) 1 each MISCELLANE DAILY PRN PRN Reason: Consult order Potassium Chloride (Potassium Chloride Er 20 Meq Tab.Er.Prt) 40 meq PO BID [facility] Last Admin: 03/19/21 10:36 Dose: 40 meq Documented by: ALEXANDRIA Sodium Chloride (0.9 % Sodium Chloride Flush 3 Ml Syringe) 3 ml IVFLUSH QSHIFT [facility] Last Admin: 03/19/21 07:48 Dose: 3 ml Documented by: ALEXANDRIA Venlafaxine HCl (Venlafaxine Hcl Er 150 Mg Cap.Er.24h) 150 mg PO DAILY [facility] Last Admin: 03/19/21 07:48 Dose: 150 mg Documented by: ALEXANDRIA Labs CBC & Chem 7: 03/19/21 04:12 03/19/21 04:12 Labs: Laboratory Results - last 24 hr 03/18/21 03/18/21 03/19/21 16:08 19:21 04:12 MCV MCH MCHC RDW Plt Count MPV Immature Gran % (Auto) Neut % (Auto) Lymph % (Auto) [place] % (Auto) Eos % (Auto) Baso % (Auto) Lymph # (Auto) [place] # (Auto) Eos # (Auto) Baso # (Auto) Abs Immat Gran (auto) Absolute Neuts (auto) Absolute Nucleated RBC Nucleated RBC % (auto) Smear Tech's Comments Anion Gap 14 Estim Creat Clear Calc 52.6 Estimated GFR > 60 POC Glucose 281 H 301 H Random Glucose 236 H Calcium 7.8 L 03/19/21 03/19/21 03/19/21 04:12 07:32 11:38 MCV 79.4 L MCH 26.6 L MCHC 33.4 RDW 16.7 H Plt Count 132 L D MPV TNP Immature Gran % (Auto) 0.9 H Neut % (Auto) 76.2 H Lymph % (Auto) 10.9 L [place] % (Auto) 11.1 H Eos % (Auto) 0.5 Baso % (Auto) 0.4 Lymph # (Auto) 2.1 [place] # (Auto) 2.2 H Eos # (Auto) 0.1 Baso # (Auto) 0.1 Abs Immat Gran (auto) 0.17 H Absolute Neuts (auto) 15.0 H Absolute Nucleated RBC 0.000 Nucleated RBC % (auto) 0.0 Smear Tech's Comments VERIFIED Anion Gap Estim Creat Clear Calc Estimated GFR POC Glucose 274 H 240 H Random Glucose Calcium Assessment and Plan (1) Osteoarthritis of right knee: Status: Acute (2) Neck pain: Status: Acute (3) Swelling of knee joint, right: Status: Acute (4) Leukocytosis: Status: Acute (5) Abdominal pain: Status: Acute Assessment and Plan: 71 year old women admitted by general surgery Intra-abdominal Hematoma versus abscess Abdominal pain No further episodes of abdominal pain but noted to have worsening WBC Status post recent cholecystectomy LFTs normalized ct abd showed intra-abdominal Hematoma versus abscess on iv meropenem and IV vanco day 3 Due to rising WBC case discussed with General surgery they repeated CT abdomen and pelvis follow report follow BMP and CBC. Thrombocytopenia Noted to have drop in platelet count to 88, but platelet count rebounded to 132 today, heparin held No bleeding noted follow CBC Hypokalemia will replace and follow Constipation. Likely due to narcotics had a bowel movement, continue stool softener Neck pain. Seems MSK? Continue lidocaine patch, hot packs and analgesic Knee pain seen by ortho,low concern for septic joints, osteoarthritis on xray? Continue Tylenol and hot pack, reassured patient Hyperglycemia secondary to diabetes Blood sugar 240, Continue Lantus insulin ,sliding scale, continue diabetic diet Anemia no bleeding stable H/H CAD hold plavix? continue BB HTN Amlodipine DVT prophylaxis on compression boots Quality Stroke Does the patient have a stroke diagnosis?: No VTE Prior VTE?: No VTE Risk Level:: Medical - moderate - high VTE Device Contraindication: N/A - Device Ordered VTE Drug Contraindication: N/A - Med Ordered
[2021-03-19 16:31] LABS: Glucose, Whole Blood 241 mg/dL (60-115)
--- NOTE | 2021-03-19 16:37 | PM.EVENT ---
Event Note Date of Service: 03/19/21 Event Note: She has increased leukocytosis She has persistent abdominal collection. Would continue Zosyn and Vancomycin and would favor drainage and culture of abdominal collection
--- NOTE | 2021-03-19 18:01 | PM.EVENT ---
Event Note Date of Service: 03/19/21 Event Note: I have reviewed her CAT scan with the radiologist there is note of this persistent collection in the gallbladder fossa we will repeat her CBC tomorrow if with persistent leukocytosis, plan to do CT drainage she otherwise denies significant abdominal pain at this time I explained to her the plan she continues to have a very benign exam she has had no fever
[2021-03-19 20:18] LABS: Glucose, Whole Blood 292 mg/dL (60-115)
[2021-03-19] MEDS: ARIPiprazole 20 MG TABLET PO (20:38)
[2021-03-20] VITALS (9 sets, daily range): BP systolic 105–135; BP diastolic 53–66; PULSE 56–74; RESP 16–18; TEMP 36.1–36.8; O2SAT 92–99
[2021-03-20 05:44] LABS: Eosinophils Percent Auto 1.2 % (0-4); MANUAL DIFF FLAG SCAN; PLT ABN DIST 1; SCAN SMEAR FLAG 1
[2021-03-20 05:46] LABS: Basophils Absolute Auto 0.1 X10*3/uL (0.0-0.2); Basophils Percent Auto 0.3 % (0-2); Eosinophils Absolute Auto 0.2 X10*3/uL (0.0-0.4); Hematocrit 28.7 % (37.0-47.0); Hemoglobin 9.8 g/dl (12.0-16.0); Imm Gran Abs Auto 0.15 X10*3/uL (0.00-0.03); Imm Gran Pct Auto 0.9 % (0.0-0.4); Lymphocytes Absolute Auto 2.2 X10*3/uL (1.2-4.9); Lymphocytes Percent Auto 12.9 % (20-40); Mean Corpuscular HGB Conc 34.1 g/dl (31.0-35.0); Mean Corpuscular Hemoglobin 27.1 pg (27.0-33.0); Mean Corpuscular Volume 79.5 fL (80.0-98.0); Mean Platelet Volume 10.8 fL (9.4-12.3); Monocytes Absolute Auto 1.7 X10*3/uL (0.1-1.2); Monocytes Percent Auto 9.8 % (2-11); Neutrophils Absolute Auto 12.9 x10*3/uL (2.0-8.3); Neutrophils Percent Auto 74.9 % (45-73); Platelet Count 212 X10*3/uL (160-400); Red Blood Count 3.61 X10*6/uL (4.20-5.50); Red Cell Distribution Width 17.1 % (11.0-16.0); White Blood Count 17.2 X10*3/uL (4.8-10.8)
[2021-03-20 06:47] LABS: SLIDE REVIEW VERIFIED
[2021-03-20 07:23] LABS: Anion Gap 12 (12-20); Blood Urea Nitrogen 8 mg/dL (9-16); Calcium 8.1 mg/dL (8.4-10.2); Carbon Dioxide 29 mmol/L (22-29); Chloride 97 mmol/L (96-108); Estimated Glomerular Filt Rate > 60; Glucose Random 260 mg/dL (60-115); Potassium 3.7 mmol/L (3.3-5.1); Sodium 134 mmol/L (135-145)
[2021-03-20 07:40] LABS: Glucose, Whole Blood 245 mg/dL (60-115)
[2021-03-20] MEDS: vancomycin HCL 1,250 MG in 0.9 % Sodium Chloride 250 ML 166.67 MG IV (08:17)
[2021-03-20] MEDS: Lidocaine 4 % Patch ADH..PATCH 1 PATCH TRANSDERMA (08:18)
[2021-03-20] MEDS: Acetaminophen 325 MG TABLET 650 MG PO ×2 (08:18→20:35)
[2021-03-20] MEDS: amLODIPine Besylate 10 MG TABLET PO (08:18)
[2021-03-20] MEDS: Potassium Chloride ER 20 MEQ TAB.ER.PRT 40 MEQ PO ×2 (08:19→20:26)
[2021-03-20] MEDS: carvediloL 6.25 MG TABLET PO ×2 (08:19→20:26)
[2021-03-20] MEDS: 0.9 % Sodium Chloride Flush 3 ML SYRINGE IVFLUSH ×3 (08:19→20:27)
[2021-03-20] MEDS: Insulin Glargine,Hum.rec.anlog 100 UNIT/ML 10 ML VIAL 10 UNIT SUBCUT (08:19)
[2021-03-20] MEDS: Insulin Lispro 100 UNIT/ML 3 ML VIAL SUBCUT ×2 (08:19→20:26)
[2021-03-20] MEDS: Venlafaxine HCl ER 150 MG CAP.ER.24H PO (08:19)
[2021-03-20] MEDS: Gabapentin 100 MG CAPSULE PO ×2 (08:19→20:26)
[2021-03-20] MEDS: Furosemide 20 MG TABLET PO (08:19)
[2021-03-20 11:44] LABS: Glucose, Whole Blood 165 mg/dL (60-115)
--- NOTE | 2021-03-20 12:34 | PM.PNGS ---
Subjective Subjective Date of Service: 03/20/21 Interval history: Minimal abdominal pain Complaints of pain on both lower extremities No nausea or vomiting Physical Exam Vital Signs: Vital Signs: Last Vital Signs Temp 97.8 F 03/20/21 11:37 Pulse 56 03/20/21 11:37 Resp 18 03/20/21 11:37 BP 105/56 L 03/20/21 11:37 Pulse Ox 95 03/20/21 11:37 Body Mass Index 23.4 Const: General: comfortable and no acute distress Resp: Effort & Inspection: normal respiratory effort Cardio: Rate: regular rate GI: Other: Mild tenderness on deep palpation on the epigastric Palpation (GI): Soft to palpation, not firm, no guarding and not rigid Objective Data Active Medications Acetaminophen (Acetaminophen 325 Mg Tablet) 650 mg PO Q6H PRN PRN Reason: Fever Last Admin: 03/20/21 08:18 Dose: 650 mg Documented by: AMY Amlodipine Besylate (Amlodipine Besylate 10 Mg Tablet) 10 mg PO DAILY [facility]; Protocol Last Admin: 03/20/21 08:18 Dose: 10 mg Documented by: AMY Aripiprazole (Aripiprazole 20 Mg Tablet) 20 mg PO BEDTIME [facility] Last Admin: 03/19/21 20:38 Dose: 20 mg Documented by: TEMO Carvedilol (Carvedilol 6.25 Mg Tablet) 6.25 mg PO BID [facility]; Protocol Last Admin: 03/20/21 08:19 Dose: 6.25 mg Documented by: AMY Dextrose (Dextrose 50 % 25 Gm/50 Ml Vial) 25 gm IVPUSH Q15M PRN; Protocol PRN Reason: per Hypoglycemia Standing Ord. Furosemide (Furosemide 20 Mg Tablet) 20 mg PO DAILY [facility]; Protocol Last Admin: 03/20/21 08:19 Dose: 20 mg Documented by: AMY Gabapentin (Gabapentin 100 Mg Capsule) 100 mg PO BID [facility] Last Admin: 03/20/21 08:19 Dose: 100 mg Documented by: AMY Glucose (Glucose Gel 15 Gm Gel..Gram.) 15 gm PO Q15M PRN; Protocol PRN Reason: per Hypoglycemia Standing Ord. Hydroxyzine HCl (Hydroxyzine Hcl 10 Mg Tablet) 10 mg PO Q8H PRN PRN Reason: Anxiety Meropenem 1 gm/ Sodium (Chloride) 100 mls @ 100 mls/hr IV Q8H [facility] Last Admin: 03/20/21 12:08 Dose: 100 mls/hr Documented by: AMY Vancomycin HCl 1,250 mg/ (Sodium Chloride) 250 mls @ 166.667 mls/hr IV Q24H [facility] Last Infusion: 03/20/21 09:53 Dose: 0 mls/hr Documented by: AMY Insulin Glargine (Insulin Glargine,Hum.Rec.Anlog 100 Unit/Ml 10 Ml Vial) 10 unit SUBCUT DAILY [facility] Last Admin: 03/20/21 08:19 Dose: 10 unit Documented by: AMY Insulin Human Lispro (Insulin Lispro 100 Unit/Ml 3 Ml Vial) 0 unit SUBCUT QIDACHS [facility]; Protocol Last Admin: 03/20/21 11:50 Dose: Not Given Documented by: AMY Non-Admin Reason: NPO Lidocaine (Lidocaine 4 % Patch Adh..Patch) 1 patch TRANSDERMA DAILY [facility]; Protocol Last Admin: 03/20/21 08:18 Dose: 1 patch Documented by: AMY Pharmacy Consult (Consult Rx Perform Med Rec) 1 each MISCELLANE ONCE PRN PRN Reason: Consult order Pharmacy Consult (Consult Rx Vancomycin Dosing) 1 each MISCELLANE DAILY PRN PRN Reason: Consult order Potassium Chloride (Potassium Chloride Er 20 Meq Tab.Er.Prt) 40 meq PO BID [facility] Last Admin: 03/20/21 08:19 Dose: 40 meq Documented by: AMY Sodium Chloride (0.9 % Sodium Chloride Flush 3 Ml Syringe) 3 ml IVFLUSH QSHIFT [facility] Last Admin: 03/20/21 08:19 Dose: 3 ml Documented by: AMY Venlafaxine HCl (Venlafaxine Hcl Er 150 Mg Cap.Er.24h) 150 mg PO DAILY [facility] Last Admin: 03/20/21 08:19 Dose: 150 mg Documented by: AMY Labs CBC & Chem 7: 03/20/21 05:26 03/20/21 06:26 Labs: Laboratory Results - last 24 hr 03/19/21 03/19/21 03/20/21 16:26 20:12 05:26 MCV 79.5 L MCH 27.1 MCHC 34.1 RDW 17.1 H Plt Count 212 D MPV 10.8 Immature Gran % (Auto) 0.9 H Neut % (Auto) 74.9 H Lymph % (Auto) 12.9 L [place] % (Auto) 9.8 Eos % (Auto) 1.2 Baso % (Auto) 0.3 Lymph # (Auto) 2.2 [place] # (Auto) 1.7 H Eos # (Auto) 0.2 Baso # (Auto) 0.1 Abs Immat Gran (auto) 0.15 H Absolute Neuts (auto) 12.9 H Absolute Nucleated RBC 0.000 Nucleated RBC % (auto) 0.0 Smear Tech's Comments VERIFIED PT INR Anion Gap Estim Creat Clear Calc Estimated GFR POC Glucose 241 H 292 H Random Glucose Calcium 03/20/21 03/20/21 03/20/21 05:26 06:26 07:34 MCV Cancelled MCH Cancelled MCHC Cancelled RDW Cancelled Plt Count Cancelled MPV Cancelled Immature Gran % (Auto) Neut % (Auto) Lymph % (Auto) [place] % (Auto) Eos % (Auto) Baso % (Auto) Lymph # (Auto) [place] # (Auto) Eos # (Auto) Baso # (Auto) Abs Immat Gran (auto) Absolute Neuts (auto) Absolute Nucleated RBC Cancelled Nucleated RBC % (auto) Cancelled Smear Tech's Comments PT INR Anion Gap 12 Estim Creat Clear Calc 52.0 Estimated GFR > 60 POC Glucose 245 H Random Glucose 260 H Calcium 8.1 L 03/20/21 03/20/21 08:17 11:36 MCV MCH MCHC RDW Plt Count MPV Immature Gran % (Auto) Neut % (Auto) Lymph % (Auto) [place] % (Auto) Eos % (Auto) Baso % (Auto) Lymph # (Auto) [place] # (Auto) Eos # (Auto) Baso # (Auto) Abs Immat Gran (auto) Absolute Neuts (auto) Absolute Nucleated RBC Nucleated RBC % (auto) Smear Tech's Comments PT 11.0 INR 1.0 Anion Gap Estim Creat Clear Calc Estimated GFR POC Glucose 165 H Random Glucose Calcium Procedures Date of Service Date of Service: 03/20/21 Progress Note: A&P Assessment and plan (1) Intra-abdominal abscess: Status: Acute Assessment and Plan: She continues to have a very benign exam She has no fever but her white count is elevated Discussed with radiologist - will do aspiration, CT-guided for the collection in the gallbladder fossa Cultures to be taken She is otherwise stable She understands the plan Continue antibiotics at this time Fall Risk Details Current Medications: Current Medications Acetaminophen (Acetaminophen 325 Mg Tablet) 650 mg PO Q6H PRN PRN Reason: Fever Last Admin: 03/20/21 08:18 Dose: 650 mg Documented by: Amlodipine Besylate (Amlodipine Besylate 10 Mg Tablet) 10 mg PO DAILY [facility]; Protocol Last Admin: 03/20/21 08:18 Dose: 10 mg Documented by: Aripiprazole (Aripiprazole 20 Mg Tablet) 20 mg PO BEDTIME [facility] Last Admin: 03/19/21 20:38 Dose: 20 mg Documented by: Carvedilol (Carvedilol 6.25 Mg Tablet) 6.25 mg PO BID [facility]; Protocol Last Admin: 03/20/21 08:19 Dose: 6.25 mg Documented by: Dextrose (Dextrose 50 % 25 Gm/50 Ml Vial) 25 gm IVPUSH Q15M PRN; Protocol PRN Reason: per Hypoglycemia Standing Ord. Furosemide (Furosemide 20 Mg Tablet) 20 mg PO DAILY [facility]; Protocol Last Admin: 03/20/21 08:19 Dose: 20 mg Documented by: Gabapentin (Gabapentin 100 Mg Capsule) 100 mg PO BID [facility] Last Admin: 03/20/21 08:19 Dose: 100 mg Documented by: Glucose (Glucose Gel 15 Gm Gel..Gram.) 15 gm PO Q15M PRN; Protocol PRN Reason: per Hypoglycemia Standing Ord. Hydroxyzine HCl (Hydroxyzine Hcl 10 Mg Tablet) 10 mg PO Q8H PRN PRN Reason: Anxiety Meropenem 1 gm/ Sodium (Chloride) 100 mls @ 100 mls/hr IV Q8H [facility] Last Admin: 03/20/21 12:08 Dose: 100 mls/hr Documented by: Vancomycin HCl 1,250 mg/ (Sodium Chloride) 250 mls @ 166.667 mls/hr IV Q24H [facility] Last Infusion: 03/20/21 09:53 Dose: Infused Documented by: Insulin Glargine (Insulin Glargine,Hum.Rec.Anlog 100 Unit/Ml 10 Ml Vial) 10 unit SUBCUT DAILY [facility] Last Admin: 03/20/21 08:19 Dose: 10 unit Documented by: Insulin Human Lispro (Insulin Lispro 100 Unit/Ml 3 Ml Vial) 0 unit SUBCUT QIDACHS [facility]; Protocol Last Admin: 03/20/21 11:50 Dose: Not Given Documented by: Lidocaine (Lidocaine 4 % Patch Adh..Patch) 1 patch TRANSDERMA DAILY [facility]; Protocol Last Admin: 03/20/21 08:18 Dose: 1 patch Documented by: Pharmacy Consult (Consult Rx Perform Med Rec) 1 each MISCELLANE ONCE PRN PRN Reason: Consult order Pharmacy Consult (Consult Rx Vancomycin Dosing) 1 each MISCELLANE DAILY PRN PRN Reason: Consult order Potassium Chloride (Potassium Chloride Er 20 Meq Tab.Er.Prt) 40 meq PO BID [facility] Last Admin: 03/20/21 08:19 Dose: 40 meq Documented by: Sodium Chloride (0.9 % Sodium Chloride Flush 3 Ml Syringe) 3 ml IVFLUSH QSHIFT [facility] Last Admin: 03/20/21 08:19 Dose: 3 ml Documented by: Venlafaxine HCl (Venlafaxine Hcl Er 150 Mg Cap.Er.24h) 150 mg PO DAILY [facility] Last Admin: 03/20/21 08:19 Dose: 150 mg Documented by: Time Spent With Patient Time: Total time spent is greater than 50% in coordination of care (as documented) at patient's floor/unit and/or counseling patient: Time with patient: 15 - 24 minutes Quality Stroke Does the patient have a stroke diagnosis?: No VTE Prior VTE?: No VTE Risk Level:: Medical - moderate - high VTE Device Contraindication: N/A - Device Ordered VTE Drug Contraindication: N/A - Med Ordered
--- NOTE | 2021-03-20 15:02 | MHC.CM.PN ---
NURSE CASE MANGER NOTE ELECTRONIC MEDICAL RECORD REVIEWED WELL ON MULTIPLE DISCIPLIANRY ROUNDS APTIENT WILL HAVE CT GUIDED INTRA ABDOMINAL ABSCES DRAING TODAY BY INTERVENTIONAL RADIOLOGY. 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
--- NOTE | 2021-03-20 15:21 | HO.PM.IMPN ---
Subjective Subjective Date of Service: 03/20/21 Interval History: Being followed for abdominal fluid collection, complaining of no change in right knee pain and neck pain, denies significant abdominal pain no nausea no vomiting tolerating diet, WBC trending down but remains elevated around 17,000 no fevers no chills overnight no other acute issues. Review of Systems General headache, no dizziness no fever chills.? CVS no chest pain, no palpitation.? Respiratory no cough, no sob.? Gastrointestinal no nausea no vomiting, no diarrhea Musculoskeletal right knee pain/back of neck pain Review of Systems: Yes all other systems are reviewed and are negative Physical Exam Vital Signs: Vital Signs: Last Vital Signs Temp 97.8 F 03/20/21 11:37 Pulse 56 03/20/21 11:37 Resp 18 03/20/21 11:37 BP 105/56 L 03/20/21 11:37 Pulse Ox 95 03/20/21 11:37 Body Mass Index 23.4 General awake ,alert x3 , resting comfortably in no acute distress.? Neck no JVD.? Tenderness back off head and neck,unchanged, no redness ,no swelling, no?laceration CVS? regular rate rhythm, Respiratory lungs clear to auscultation, no respiratory distress, Gastrointestinal abdomen soft, no abdominal tenderness, bowel sounds audible, no guarding , no rigidity. Extremities no edema. Right knee swollen, no redness, no warmth, tenderness to palpation Neuro nonfocal Skin no rash Objective Data Active Medications Acetaminophen (Acetaminophen 325 Mg Tablet) 650 mg PO Q6H PRN PRN Reason: Fever Last Admin: 03/20/21 08:18 Dose: 650 mg Documented by: AMY Amlodipine Besylate (Amlodipine Besylate 10 Mg Tablet) 10 mg PO DAILY [facility]; Protocol Last Admin: 03/20/21 08:18 Dose: 10 mg Documented by: AMY Aripiprazole (Aripiprazole 20 Mg Tablet) 20 mg PO BEDTIME [facility] Last Admin: 03/19/21 20:38 Dose: 20 mg Documented by: TEMO Carvedilol (Carvedilol 6.25 Mg Tablet) 6.25 mg PO BID [facility]; Protocol Last Admin: 03/20/21 08:19 Dose: 6.25 mg Documented by: AMY Dextrose (Dextrose 50 % 25 Gm/50 Ml Vial) 25 gm IVPUSH Q15M PRN; Protocol PRN Reason: per Hypoglycemia Standing Ord. Furosemide (Furosemide 20 Mg Tablet) 20 mg PO DAILY [facility]; Protocol Last Admin: 03/20/21 08:19 Dose: 20 mg Documented by: AMY Gabapentin (Gabapentin 100 Mg Capsule) 100 mg PO BID [facility] Last Admin: 03/20/21 08:19 Dose: 100 mg Documented by: AMY Glucose (Glucose Gel 15 Gm Gel..Gram.) 15 gm PO Q15M PRN; Protocol PRN Reason: per Hypoglycemia Standing Ord. Hydroxyzine HCl (Hydroxyzine Hcl 10 Mg Tablet) 10 mg PO Q8H PRN PRN Reason: Anxiety Meropenem 1 gm/ Sodium (Chloride) 100 mls @ 100 mls/hr IV Q8H [facility] Last Infusion: 03/20/21 13:26 Dose: 0 mls/hr Documented by: AMY Vancomycin HCl 1,250 mg/ (Sodium Chloride) 250 mls @ 166.667 mls/hr IV Q24H [facility] Last Infusion: 03/20/21 09:53 Dose: 0 mls/hr Documented by: AMY Insulin Glargine (Insulin Glargine,Hum.Rec.Anlog 100 Unit/Ml 10 Ml Vial) 10 unit SUBCUT DAILY [facility] Last Admin: 03/20/21 08:19 Dose: 10 unit Documented by: AMY Insulin Human Lispro (Insulin Lispro 100 Unit/Ml 3 Ml Vial) 0 unit SUBCUT QIDACHS [facility]; Protocol Last Admin: 03/20/21 11:50 Dose: Not Given Documented by: AMY Non-Admin Reason: NPO Lidocaine (Lidocaine 4 % Patch Adh..Patch) 1 patch TRANSDERMA DAILY [facility]; Protocol Last Admin: 03/20/21 08:18 Dose: 1 patch Documented by: AMY Pharmacy Consult (Consult Rx Perform Med Rec) 1 each MISCELLANE ONCE PRN PRN Reason: Consult order Pharmacy Consult (Consult Rx Vancomycin Dosing) 1 each MISCELLANE DAILY PRN PRN Reason: Consult order Potassium Chloride (Potassium Chloride Er 20 Meq Tab.Er.Prt) 40 meq PO BID [facility] Last Admin: 03/20/21 08:19 Dose: 40 meq Documented by: AMY Sodium Chloride (0.9 % Sodium Chloride Flush 3 Ml Syringe) 3 ml IVFLUSH QSHIFT [facility] Last Admin: 03/20/21 08:19 Dose: 3 ml Documented by: AMY Venlafaxine HCl (Venlafaxine Hcl Er 150 Mg Cap.Er.24h) 150 mg PO DAILY [facility] Last Admin: 03/20/21 08:19 Dose: 150 mg Documented by: AMY Labs CBC & Chem 7: 03/20/21 05:26 03/20/21 06:26 Labs: Laboratory Results - last 24 hr 03/19/21 03/19/21 03/20/21 16:26 20:12 05:26 MCV 79.5 L MCH 27.1 MCHC 34.1 RDW 17.1 H Plt Count 212 D MPV 10.8 Immature Gran % (Auto) 0.9 H Neut % (Auto) 74.9 H Lymph % (Auto) 12.9 L [place] % (Auto) 9.8 Eos % (Auto) 1.2 Baso % (Auto) 0.3 Lymph # (Auto) 2.2 [place] # (Auto) 1.7 H Eos # (Auto) 0.2 Baso # (Auto) 0.1 Abs Immat Gran (auto) 0.15 H Absolute Neuts (auto) 12.9 H Absolute Nucleated RBC 0.000 Nucleated RBC % (auto) 0.0 Smear Tech's Comments VERIFIED PT INR Anion Gap Estim Creat Clear Calc Estimated GFR POC Glucose 241 H 292 H Random Glucose Calcium 03/20/21 03/20/21 03/20/21 05:26 06:26 07:34 MCV Cancelled MCH Cancelled MCHC Cancelled RDW Cancelled Plt Count Cancelled MPV Cancelled Immature Gran % (Auto) Neut % (Auto) Lymph % (Auto) [place] % (Auto) Eos % (Auto) Baso % (Auto) Lymph # (Auto) [place] # (Auto) Eos # (Auto) Baso # (Auto) Abs Immat Gran (auto) Absolute Neuts (auto) Absolute Nucleated RBC Cancelled Nucleated RBC % (auto) Cancelled Smear Tech's Comments PT INR Anion Gap 12 Estim Creat Clear Calc 52.0 Estimated GFR > 60 POC Glucose 245 H Random Glucose 260 H Calcium 8.1 L 03/20/21 03/20/21 08:17 11:36 MCV MCH MCHC RDW Plt Count MPV Immature Gran % (Auto) Neut % (Auto) Lymph % (Auto) [place] % (Auto) Eos % (Auto) Baso % (Auto) Lymph # (Auto) [place] # (Auto) Eos # (Auto) Baso # (Auto) Abs Immat Gran (auto) Absolute Neuts (auto) Absolute Nucleated RBC Nucleated RBC % (auto) Smear Tech's Comments PT 11.0 INR 1.0 Anion Gap Estim Creat Clear Calc Estimated GFR POC Glucose 165 H Random Glucose Calcium Assessment and Plan (1) Osteoarthritis of right knee: Status: Acute (2) Neck pain: Status: Acute (3) Epigastric pain: Status: Acute (4) Swelling of knee joint, right: Status: Acute (5) Intra-abdominal abscess: Status: Acute (6) Leukocytosis: Status: Acute (7) Diabetes: Status: Acute Assessment and Plan: 71 year old women admitted by general surgery Intra-abdominal Hematoma versus abscess Abdominal pain/intra-abdominal fluid collection Resolved, persistent leukocytosis likely due to intra-abdominal abscess/hematoma Continue iv meropenem and IV vanco day 4, vanco trough 9.[address]-guided drainage of right intra-abdominal fluid collection today will follow culture sensitivity of fluid Thrombocytopenia Noted to have drop in platelet count to 88, but platelet count rebounded to normal range No bleeding noted Hypokalemia repleted and normalized , likely due to Lasix will place on daily potassium 20 mEq Constipation. Resolved Neck pain. Seems MSK?has history of fibromyalgia Continue lidocaine patch, hot packs and analgesic Knee pain seen by ortho,low concern for septic joints, no redness, no warmth, osteoarthritis on xray? Continue Tylenol and hot pack, reassured patient Hyperglycemia secondary to diabetes Blood sugar 240, Continue Lantus insulin ,sliding scale, continue diabetic diet Anemia no bleeding stable H/H CAD hold plavix? continue BB HTN Soft blood pressure will lower dose of Amlodipine to 5 mg. History of depression continue home meds DVT prophylaxis on compression boots Quality Stroke Does the patient have a stroke diagnosis?: No VTE Prior VTE?: No VTE Risk Level:: Medical - moderate - high VTE Device Contraindication: N/A - Device Ordered VTE Drug Contraindication: N/A - Med Ordered
--- NOTE | 2021-03-20 15:26 | PM.EVENT ---
Event Note Date of Service: 03/20/21 Event Note: Discussed with Dr. Arango CT-guided aspiration of the gallbladder fossa - dry, no pus, no fluid Restart diet therefore Pain management Discussed with alphonso Blanc Once tolerating diet and with good pain control, discharge planning
[2021-03-20 16:13] LABS: Glucose, Whole Blood 143 mg/dL (60-115)
[2021-03-20 20:05] LABS: Glucose, Whole Blood 342 mg/dL (60-115)
[2021-03-20] MEDS: ARIPiprazole 20 MG TABLET PO (20:26)
[2021-03-21 04:00] VITALS: BP 138/60; PULSE 77; RESP 17; TEMP 36.6; O2SAT 97
[2021-03-21 07:31] LABS: Glucose, Whole Blood 224 mg/dL (60-115)
[2021-03-21 07:35] VITALS: BP 138/65; PULSE 73; RESP 18; TEMP 36.1; O2SAT 94
[2021-03-21] MEDS: Insulin Lispro 100 UNIT/ML 3 ML VIAL SUBCUT ×4 (07:35→20:12)
[2021-03-21 07:36] LABS: MANUAL DIFF FLAG NO
[2021-03-21] MEDS: 0.9 % Sodium Chloride Flush 3 ML SYRINGE IVFLUSH ×3 (07:36→20:19)
[2021-03-21 07:39] LABS: Basophils Absolute Auto 0.1 X10*3/uL (0.0-0.2); Basophils Percent Auto 0.5 % (0-2); Eosinophils Absolute Auto 0.6 X10*3/uL (0.0-0.4); Eosinophils Percent Auto 4.5 % (0-4); Hematocrit 28.4 % (37.0-47.0); Hemoglobin 9.7 g/dl (12.0-16.0); Imm Gran Abs Auto 0.17 X10*3/uL (0.00-0.03); Imm Gran Pct Auto 1.3 % (0.0-0.4); Lymphocytes Absolute Auto 1.7 X10*3/uL (1.2-4.9); Lymphocytes Percent Auto 13.2 % (20-40); Mean Corpuscular HGB Conc 34.2 g/dl (31.0-35.0); Mean Corpuscular Hemoglobin 26.9 pg (27.0-33.0); Mean Corpuscular Volume 78.7 fL (80.0-98.0); Mean Platelet Volume 10.9 fL (9.4-12.3); Monocytes Absolute Auto 1.3 X10*3/uL (0.1-1.2); Monocytes Percent Auto 9.7 % (2-11); Neutrophils Absolute Auto 9.4 x10*3/uL (2.0-8.3); Neutrophils Percent Auto 70.8 % (45-73); Platelet Count 312 X10*3/uL (160-400); Red Blood Count 3.61 X10*6/uL (4.20-5.50); White Blood Count 13.2 X10*3/uL (4.8-10.8)
[2021-03-21 07:55] LABS: Anion Gap 11 (12-20); Blood Urea Nitrogen 9 mg/dL (9-16); Calcium 8.6 mg/dL (8.4-10.2); Carbon Dioxide 32 mmol/L (22-29); Chloride 98 mmol/L (96-108); Creatinine Clr Calc Pharmacy 50.7; Estimated Glomerular Filt Rate > 60; Glucose Random 218 mg/dL (60-115); Potassium 4.9 mmol/L (3.3-5.1); Sodium 136 mmol/L (135-145)
[2021-03-21 08:00] LABS: Vancomycin Trough 15.2 mcg/mL (10.0-20.0)
[2021-03-21] MEDS: Insulin Glargine,Hum.rec.anlog 100 UNIT/ML 10 ML VIAL 10 UNIT SUBCUT (08:18)
[2021-03-21] MEDS: Furosemide 20 MG TABLET PO (08:19)
[2021-03-21] MEDS: carvediloL 6.25 MG TABLET PO ×2 (08:19→20:12)
[2021-03-21] MEDS: Lidocaine 4 % Patch ADH..PATCH 1 PATCH TRANSDERMA (08:19)
[2021-03-21] MEDS: Acetaminophen 325 MG TABLET 650 MG PO ×2 (08:19→20:18)
[2021-03-21] MEDS: Gabapentin 100 MG CAPSULE PO ×2 (08:19→20:12)
[2021-03-21] MEDS: Venlafaxine HCl ER 150 MG CAP.ER.24H PO (08:19)
[2021-03-21] MEDS: Potassium Chloride ER 20 MEQ TAB.ER.PRT 40 MEQ PO ×2 (08:19→20:11)
[2021-03-21] MEDS: Potassium Chloride ER 20 MEQ TAB.ER.PRT PO (08:19)
[2021-03-21] MEDS: amLODIPine Besylate 5 MG TABLET PO (08:19)
[2021-03-21 11:16] LABS: Glucose, Whole Blood 230 mg/dL (60-115)
[2021-03-21 11:17] VITALS: BP 120/57; PULSE 61; RESP 18; TEMP 36.2; O2SAT 96
--- NOTE | 2021-03-21 11:53 | P.PNGS_ITS ---
Subjective Subjective Date of Service: 03/21/21 Interval history: Feels well Tolerating diet No nausea or vomiting Has BMs Occasional pain all over Physical Exam Vital Signs: Vital Signs: Last Vital Signs Temp 97.2 F 03/21/21 11:17 Pulse 61 03/21/21 11:17 Resp 18 03/21/21 11:17 BP 120/57 L 03/21/21 11:17 Pulse Ox 96 03/21/21 11:17 BMI result Body Mass Index 23.4 Const: General: comfortable and no acute distress Resp: Effort & Inspection: normal respiratory effort Cardio: Rate: regular rate GI: Palpation (GI): Soft to palpation, not firm, nontender and no guarding Objective Data Active Medications Acetaminophen (Acetaminophen 325 Mg Tablet) 650 mg PO Q6H PRN PRN Reason: Fever Last Admin: 03/21/21 08:19 Dose: 650 mg Documented by: AMY Amlodipine Besylate (Amlodipine Besylate 5 Mg Tablet) 5 mg PO DAILY [facility]; Protocol Last Admin: 03/21/21 08:19 Dose: 5 mg Documented by: AMY Aripiprazole (Aripiprazole 20 Mg Tablet) 20 mg PO BEDTIME [facility]AH Last Admin: 03/20/21 20:26 Dose: 20 mg Documented by: CAITYQC Carvedilol (Carvedilol 6.25 Mg Tablet) 6.25 mg PO BID [facility] [place]; Protocol Last Admin: 03/21/21 08:19 Dose: 6.25 mg Documented by: AMY Dextrose (Dextrose 50 % 25 Gm/50 Ml Vial) 25 gm IVPUSH Q15M PRN; Protocol PRN Reason: per Hypoglycemia Standing Ord. Furosemide (Furosemide 20 Mg Tablet) 20 mg PO DAILY [facility] [place]; Protocol Last Admin: 03/21/21 08:19 Dose: 20 mg Documented by: AMY Gabapentin (Gabapentin 100 Mg Capsule) 100 mg PO BID [facility] [place] Last Admin: 03/21/21 08:19 Dose: 100 mg Documented by: AMY Glucose (Glucose Gel 15 Gm Gel..Gram.) 15 gm PO Q15M PRN; Protocol PRN Reason: per Hypoglycemia Standing Ord. Hydroxyzine HCl (Hydroxyzine Hcl 10 Mg Tablet) 10 mg PO Q8H PRN PRN Reason: Anxiety Vancomycin HCl 1,250 mg/ (Sodium Chloride) 250 mls @ 166.667 mls/hr IV Q24H [facility] [place] Last Infusion: 03/20/21 09:53 Dose: 0 mls/hr Documented by: AMY Piperacillin Sod/Tazobactam (Sod 3.375 gm/ Sodium Chloride) 50 mls @ 100 mls/hr IV Q6H [facility] [place] Insulin Glargine (Insulin Glargine,Hum.Rec.Anlog 100 Unit/Ml 10 Ml Vial) 10 unit SUBCUT DAILY [facility] [place] Last Admin: 03/21/21 08:18 Dose: 10 unit Documented by: AMY Insulin Human Lispro (Insulin Lispro 100 Unit/Ml 3 Ml Vial) 0 unit SUBCUT QIDACHS [facility] [place]; Protocol Last Admin: 03/21/21 07:35 Dose: 4 unit Documented by: AMY Lidocaine (Lidocaine 4 % Patch Adh..Patch) 1 patch TRANSDERMA DAILY [facility] [place]; Protocol Last Admin: 03/21/21 08:19 Dose: 1 patch Documented by: AMY Pharmacy Consult (Consult Rx Perform Med Rec) 1 each MISCELLANE ONCE PRN PRN Reason: Consult order Pharmacy Consult (Consult Rx Vancomycin Dosing) 1 each MISCELLANE DAILY PRN PRN Reason: Consult order Potassium Chloride (Potassium Chloride Er 20 Meq Tab.Er.Prt) 40 meq PO BID [facility] [place] Last Admin: 03/21/21 08:19 Dose: 40 meq Documented by: AMY Potassium Chloride (Potassium Chloride Er 20 Meq Tab.Er.Prt) 20 meq PO DAILY [facility] [place] Last Admin: 03/21/21 08:19 Dose: 20 meq Documented by: AMY Sodium Chloride (0.9 % Sodium Chloride Flush 3 Ml Syringe) 3 ml IVFLUSH QSHIFT [facility] [place] Last Admin: 03/21/21 07:36 Dose: 3 ml Documented by: AMY Venlafaxine HCl (Venlafaxine Hcl Er 150 Mg Cap.Er.24h) 150 mg PO DAILY [facility] [place] Last Admin: 03/21/21 08:19 Dose: 150 mg Documented by: AMY Labs CBC & Chem 7: 03/21/21 07:15 03/21/21 07:15 Labs: Laboratory Results - last 24 hr 03/20/21 03/20/21 03/21/21 15:58 19:49 07:11 MCV MCH MCHC RDW Plt Count MPV Immature Gran % (Auto) Neut % (Auto) Lymph % (Auto) [place] % (Auto) Eos % (Auto) Baso % (Auto) Lymph # (Auto) [place] # (Auto) Eos # (Auto) Baso # (Auto) Abs Immat Gran (auto) Absolute Neuts (auto) Absolute Nucleated RBC Nucleated RBC % (auto) Anion Gap Estim Creat Clear Calc Estimated GFR POC Glucose 143 H 342 H 224 H Random Glucose Calcium Vancomycin Trough 03/21/21 03/21/21 03/21/21 07:15 07:15 07:15 MCV 78.7 L MCH 26.9 L MCHC 34.2 RDW 17.0 H Plt Count 312 D MPV 10.9 Immature Gran % (Auto) 1.3 H Neut % (Auto) 70.8 Lymph % (Auto) 13.2 L [place] % (Auto) 9.7 Eos % (Auto) 4.5 H Baso % (Auto) 0.5 Lymph # (Auto) 1.7 [place]mer # (Auto) 1.3 H Eos # (Auto) 0.6 H Baso # (Auto) 0.1 Abs Immat Gran (auto) 0.17 H Absolute Neuts (auto) 9.4 H Absolute Nucleated RBC 0.000 Nucleated RBC % (auto) 0.0 Anion Gap 11 L Estim Creat Clear Calc 50.7 Estimated GFR > 60 POC Glucose Random Glucose 218 H Calcium 8.6 D Vancomycin Trough 15.2 03/21/21 11:07 MCV MCH MCHC RDW Plt Count MPV Immature Gran % (Auto) Neut % (Auto) Lymph % (Auto) [place] % (Auto) Eos % (Auto) Baso % (Auto) Lymph # (Auto) [place] # (Auto) Eos # (Auto) Baso # (Auto) Abs Immat Gran (auto) Absolute Neuts (auto) Absolute Nucleated RBC Nucleated RBC % (auto) Anion Gap Estim Creat Clear Calc Estimated GFR POC Glucose 230 H Random Glucose Calcium Vancomycin Trough Procedures Date of Service Date of Service: 03/21/21 Progress Note: A&P Assessment and plan (1) Intra-abdominal abscess: Status: Acute Assessment and Plan: CT aspiration done yesterday - dry tap Likely old hematoma Minimal tenderness She says she is ready to go home She does have fibromyalgia and has frequent pain all over WBC down No obvious focus of infection Good GI function Will discuss with her son Guanaco - patient says she wants to go home dw Hospitalist - continue abx PO Fall Risk Details Current Medications: Current Medications Acetaminophen (Acetaminophen 325 Mg Tablet) 650 mg PO Q6H PRN PRN Reason: Fever Last Admin: 03/21/21 08:19 Dose: 650 mg Documented by: Amlodipine Besylate (Amlodipine Besylate 5 Mg Tablet) 5 mg PO DAILY [facility] [place]; Protocol Last Admin: 03/21/21 08:19 Dose: 5 mg Documented by: Aripiprazole (Aripiprazole 20 Mg Tablet) 20 mg PO BEDTIME SARAH Last Admin: 03/20/21 20:26 Dose: 20 mg Documented by: Carvedilol (Carvedilol 6.25 Mg Tablet) 6.25 mg PO BID [facility] [place]; Protocol Last Admin: 03/21/21 08:19 Dose: 6.25 mg Documented by: Dextrose (Dextrose 50 % 25 Gm/50 Ml Vial) 25 gm IVPUSH Q15M PRN; Protocol PRN Reason: per Hypoglycemia Standing Ord. Furosemide (Furosemide 20 Mg Tablet) 20 mg PO DAILY [facility] [place]; Protocol Last Admin: 03/21/21 08:19 Dose: 20 mg Documented by: Gabapentin (Gabapentin 100 Mg Capsule) 100 mg PO BID [facility] [place] Last Admin: 03/21/21 08:19 Dose: 100 mg Documented by: Glucose (Glucose Gel 15 Gm Gel..Gram.) 15 gm PO Q15M PRN; Protocol PRN Reason: per Hypoglycemia Standing Ord. Hydroxyzine HCl (Hydroxyzine Hcl 10 Mg Tablet) 10 mg PO Q8H PRN PRN Reason: Anxiety Vancomycin HCl 1,250 mg/ (Sodium Chloride) 250 mls @ 166.667 mls/hr IV Q24H [facility] [place] Last Infusion: 03/20/21 09:53 Dose: Infused Documented by: Piperacillin Sod/Tazobactam (Sod 3.375 gm/ Sodium Chloride) 50 mls @ 100 mls/hr IV Q6H [facility] [place] Insulin Glargine (Insulin Glargine,Hum.Rec.Anlog 100 Unit/Ml 10 Ml Vial) 10 unit SUBCUT DAILY [facility] [place] Last Admin: 03/21/21 08:18 Dose: 10 unit Documented by: Insulin Human Lispro (Insulin Lispro 100 Unit/Ml 3 Ml Vial) 0 unit SUBCUT QIDACHS [facility] [place]; Protocol Last Admin: 03/21/21 07:35 Dose: 4 unit Documented by: Lidocaine (Lidocaine 4 % Patch Adh..Patch) 1 patch TRANSDERMA DAILY [facility] [place]; Protocol Last Admin: 03/21/21 08:19 Dose: 1 patch Documented by: Pharmacy Consult (Consult Rx Perform Med Rec) 1 each MISCELLANE ONCE PRN PRN Reason: Consult order Pharmacy Consult (Consult Rx Vancomycin Dosing) 1 each MISCELLANE DAILY PRN PRN Reason: Consult order Potassium Chloride (Potassium Chloride Er 20 Meq Tab.Er.Prt) 40 meq PO BID [facility] [place] Last Admin: 03/21/21 08:19 Dose: 40 meq Documented by: Potassium Chloride (Potassium Chloride Er 20 Meq Tab.Er.Prt) 20 meq PO DAILY [facility] [place] Last Admin: 03/21/21 08:19 Dose: 20 meq Documented by: Sodium Chloride (0.9 % Sodium Chloride Flush 3 Ml Syringe) 3 ml IVFLUSH QSHIFT [facility] [place] Last Admin: 03/21/21 07:36 Dose: 3 ml Documented by: Venlafaxine HCl (Venlafaxine Hcl Er 150 Mg Cap.Er.24h) 150 mg PO DAILY [facility] [place] Last Admin: 03/21/21 08:19 Dose: 150 mg Documented by: Time Spent With Patient Time: Total time spent is greater than 50% in coordination of care (as documented) at patient's floor/unit and/or counseling patient: Time with patient: 15 - 24 minutes Quality Stroke Does the patient have a stroke diagnosis?: No VTE Prior VTE?: No VTE Risk Level:: Medical - moderate - high VTE Device Contraindication: N/A - Device Ordered VTE Drug Contraindication: N/A - Med Ordered
--- NOTE | 2021-03-21 12:04 | HO.PM.IMPN ---
Subjective Subjective Date of Service: 03/21/21 Interval History: History obtained via park interpreter, patient offers no acute complaints no abdominal pain, no nause, no vomiting, has persistent musculoskeletal neck and right knee pain, no fever, chills overnight. Review of Systems General headache, no dizziness no fever chills.? CVS no chest pain, no palpitation.? Respiratory no cough, no sob.? Gastrointestinal no nausea no vomiting, no diarrhea Musculoskeletal right knee pain/back of neck pain unchanged Review of Systems: Yes all other systems are reviewed and are negative Physical Exam Vital Signs: Vital Signs: Last Vital Signs Temp 97.2 F 03/21/21 11:17 Pulse 61 03/21/21 11:17 Resp 18 03/21/21 11:17 BP 120/57 L 03/21/21 11:17 Pulse Ox 96 03/21/21 11:17 BMI result Body Mass Index 23.4 General awake ,alert x3 , resting comfortably in no acute distress.? Neck no JVD.? Tenderness to palpation back off head and neck,unchanged, no redness ,no swelling, no?laceration CVS? regular rate rhythm, Respiratory lungs clear to auscultation, no respiratory distress, Gastrointestinal abdomen soft, no abdominal tenderness, bowel sounds audible, no guarding , no rigidity. Extremities no edema. Right knee mild swelling,no redness, no warmth, tenderness to palpation Neuro nonfocal Skin no rash Objective Data Active Medications Acetaminophen (Acetaminophen 325 Mg Tablet) 650 mg PO Q6H PRN PRN Reason: Fever Last Admin: 03/21/21 08:19 Dose: 650 mg Documented by: AMY Amlodipine Besylate (Amlodipine Besylate 5 Mg Tablet) 5 mg PO DAILY [facility]; Protocol Last Admin: 03/21/21 08:19 Dose: 5 mg Documented by: AMY Aripiprazole (Aripiprazole 20 Mg Tablet) 20 mg PO BEDTIME SARAH Last Admin: 03/20/21 20:26 Dose: 20 mg Documented by: DHRUV Carvedilol (Carvedilol 6.25 Mg Tablet) 6.25 mg PO BID [facility]; Protocol Last Admin: 03/21/21 08:19 Dose: 6.25 mg Documented by: AMY Dextrose (Dextrose 50 % 25 Gm/50 Ml Vial) 25 gm IVPUSH Q15M PRN; Protocol PRN Reason: per Hypoglycemia Standing Ord. Furosemide (Furosemide 20 Mg Tablet) 20 mg PO DAILY [facility]; Protocol Last Admin: 03/21/21 08:19 Dose: 20 mg Documented by: AMY Gabapentin (Gabapentin 100 Mg Capsule) 100 mg PO BID [facility] Last Admin: 03/21/21 08:19 Dose: 100 mg Documented by: AMY Glucose (Glucose Gel 15 Gm Gel..Gram.) 15 gm PO Q15M PRN; Protocol PRN Reason: per Hypoglycemia Standing Ord. Hydroxyzine HCl (Hydroxyzine Hcl 10 Mg Tablet) 10 mg PO Q8H PRN PRN Reason: Anxiety Vancomycin HCl 1,250 mg/ (Sodium Chloride) 250 mls @ 166.667 mls/hr IV Q24H [facility] Last Infusion: 03/20/21 09:53 Dose: 0 mls/hr Documented by: AMY Piperacillin Sod/Tazobactam (Sod 3.375 gm/ Sodium Chloride) 50 mls @ 100 mls/hr IV Q6H [facility] Insulin Glargine (Insulin Glargine,Hum.Rec.Anlog 100 Unit/Ml 10 Ml Vial) 10 unit SUBCUT DAILY [facility] Last Admin: 03/21/21 08:18 Dose: 10 unit Documented by: AMY Insulin Human Lispro (Insulin Lispro 100 Unit/Ml 3 Ml Vial) 0 unit SUBCUT QIDACHS [facility]; Protocol Last Admin: 03/21/21 11:53 Dose: 4 unit Documented by: AMY Lidocaine (Lidocaine 4 % Patch Adh..Patch) 1 patch TRANSDERMA DAILY [facility]; Protocol Last Admin: 03/21/21 08:19 Dose: 1 patch Documented by: AMY Pharmacy Consult (Consult Rx Perform Med Rec) 1 each MISCELLANE ONCE PRN PRN Reason: Consult order Pharmacy Consult (Consult Rx Vancomycin Dosing) 1 each MISCELLANE DAILY PRN PRN Reason: Consult order Potassium Chloride (Potassium Chloride Er 20 Meq Tab.Er.Prt) 40 meq PO BID [facility] Last Admin: 03/21/21 08:19 Dose: 40 meq Documented by: AMY Potassium Chloride (Potassium Chloride Er 20 Meq Tab.Er.Prt) 20 meq PO DAILY [facility] Last Admin: 03/21/21 08:19 Dose: 20 meq Documented by: AMY Sodium Chloride (0.9 % Sodium Chloride Flush 3 Ml Syringe) 3 ml IVFLUSH QSHIFT [facility] Last Admin: 03/21/21 07:36 Dose: 3 ml Documented by: AMY Venlafaxine HCl (Venlafaxine Hcl Er 150 Mg Cap.Er.24h) 150 mg PO DAILY [facility] Last Admin: 03/21/21 08:19 Dose: 150 mg Documented by: AMY Labs CBC & Chem 7: 03/21/21 07:15 03/21/21 07:15 Labs: Laboratory Results - last 24 hr 03/20/21 03/20/21 03/21/21 15:58 19:49 07:11 MCV MCH MCHC RDW Plt Count MPV Immature Gran % (Auto) Neut % (Auto) Lymph % (Auto) [place]elope % (Auto) Eos % (Auto) Baso % (Auto) Lymph # (Auto) [place] # (Auto) Eos # (Auto) Baso # (Auto) Abs Immat Gran (auto) Absolute Neuts (auto) Absolute Nucleated RBC Nucleated RBC % (auto) Anion Gap Estim Creat Clear Calc Estimated GFR POC Glucose 143 H 342 H 224 H Random Glucose Calcium Vancomycin Trough 03/21/21 03/21/21 03/21/21 07:15 07:15 07:15 MCV 78.7 L MCH 26.9 L MCHC 34.2 RDW 17.0 H Plt Count 312 D MPV 10.9 Immature Gran % (Auto) 1.3 H Neut % (Auto) 70.8 Lymph % (Auto) 13.2 L [place] % (Auto) 9.7 Eos % (Auto) 4.5 H Baso % (Auto) 0.5 Lymph # (Auto) 1.7 [place]elope # (Auto) 1.3 H Eos # (Auto) 0.6 H Baso # (Auto) 0.1 Abs Immat Gran (auto) 0.17 H Absolute Neuts (auto) 9.4 H Absolute Nucleated RBC 0.000 Nucleated RBC % (auto) 0.0 Anion Gap 11 L Estim Creat Clear Calc 50.7 Estimated GFR > 60 POC Glucose Random Glucose 218 H Calcium 8.6 D Vancomycin Trough 15.2 03/21/21 11:07 MCV MCH MCHC RDW Plt Count MPV Immature Gran % (Auto) Neut % (Auto) Lymph % (Auto) [place] % (Auto) Eos % (Auto) Baso % (Auto) Lymph # (Auto) [place] # (Auto) Eos # (Auto) Baso # (Auto) Abs Immat Gran (auto) Absolute Neuts (auto) Absolute Nucleated RBC Nucleated RBC % (auto) Anion Gap Estim Creat Clear Calc Estimated GFR POC Glucose 230 H Random Glucose Calcium Vancomycin Trough Assessment and Plan (1) Osteoarthritis of right knee: Status: Acute (2) Neck pain: Status: Acute (3) Epigastric pain: Status: Acute Assessment and Plan: 71 year old women admitted by general surgery Intra-abdominal Hematoma versus abscess Abdominal pain/intra-abdominal fluid collection Abdominal pain Resolved, WBC trending down Continue iv meropenem and IV vanco day 5, Attempt was made for CT-guided drainage of right intra-abdominal fluid , no fluid was noted to be drained Since patient is asymptomatic with no nausea no vomiting no fevers no abdominal pain and tolerating diet therefore plan is to discharge home on by mouth antibiotics and to have close outpatient surgical follow-up. Thrombocytopenia Noted to have drop in platelet count to 88, but platelet count rebounded to normal range,No bleeding noted Hypokalemia repleted and normalized , likely due to Lasix will place on daily potassium 20 mEq Constipation. Resolved Neck pain. Seems MSK?has history of fibromyalgia, recommended to use analgesics, hot pack and gabapentin Knee pain seen by ortho,low concern for septic joints, no redness, no warmth, osteoarthritis on xray? Continue Tylenol and hot pack, reassured patient Hyperglycemia secondary to diabetes Blood sugar 240, Continue home medication and diabetic diet Chronic Anemia no bleeding, stable H/H outpatient follow-up with PCP CAD Resume Plavix and continue beta-gomez HTN Soft blood pressure will lower dose of Amlodipine to 5 mg. History of depression continue home meds DVT prophylaxis on compression boots Quality Stroke Does the patient have a stroke diagnosis?: No VTE Prior VTE?: No VTE Risk Level:: Medical - moderate - high VTE Device Contraindication: N/A - Device Ordered VTE Drug Contraindication: N/A - Med Ordered
[2021-03-21] MEDS: Piperacillin Sodium/Tazobactam 3.375 GM in 0.9 % Sodium Chloride 50 ML IV ×2 (14:52→20:11)
[2021-03-21 15:38] VITALS: BP 137/60; PULSE 64; RESP 17; TEMP 36.2; O2SAT 98
[2021-03-21] MEDS: vancomycin HCL 1,250 MG in 0.9 % Sodium Chloride 250 ML 166.67 MG IV (15:41)
[2021-03-21 16:02] LABS: Glucose, Whole Blood 279 mg/dL (60-115)
[2021-03-21 19:24] VITALS: BP 135/62; PULSE 65; RESP 17; TEMP 36.4; O2SAT 97
[2021-03-21 19:48] LABS: Glucose, Whole Blood 303 mg/dL (60-115)
[2021-03-21] MEDS: ARIPiprazole 20 MG TABLET PO (20:12)
[2021-03-21 23:09] VITALS: BP 127/61; PULSE 56; RESP 18; TEMP 36.8; O2SAT 96
[2021-03-22] MEDS: Piperacillin Sodium/Tazobactam 3.375 GM in 0.9 % Sodium Chloride 50 ML IV (02:24)
[2021-03-22 03:34] VITALS: BP 136/64; PULSE 61; RESP 18; TEMP 36.3; O2SAT 92
[2021-03-22] MEDS: Acetaminophen 325 MG TABLET 650 MG PO (03:42)
[2021-03-22 06:16] LABS: Creatinine Clr Calc Pharmacy 51.4; Estimated Glomerular Filt Rate > 60
[2021-03-22 07:29] LABS: Glucose, Whole Blood 180 mg/dL (60-115)
[2021-03-22] MEDS: Furosemide 20 MG TABLET PO (07:40)
[2021-03-22] MEDS: Potassium Chloride ER 20 MEQ TAB.ER.PRT 40 MEQ PO (07:40)
[2021-03-22] MEDS: Lidocaine 4 % Patch ADH..PATCH 1 PATCH TRANSDERMA (07:40)
[2021-03-22] MEDS: Potassium Chloride ER 20 MEQ TAB.ER.PRT PO (07:41)
[2021-03-22] MEDS: carvediloL 6.25 MG TABLET PO (07:41)
[2021-03-22] MEDS: Gabapentin 100 MG CAPSULE PO (07:41)
[2021-03-22] MEDS: amLODIPine Besylate 5 MG TABLET PO (07:41)
[2021-03-22] MEDS: Insulin Lispro 100 UNIT/ML 3 ML VIAL SUBCUT (07:41)
[2021-03-22] MEDS: Venlafaxine HCl ER 150 MG CAP.ER.24H PO (07:41)
[2021-03-22 07:42] VITALS: BP 149/66; PULSE 74; RESP 17; TEMP 36.2; O2SAT 97
[2021-03-22] MEDS: Insulin Glargine,Hum.rec.anlog 100 UNIT/ML 10 ML VIAL 10 UNIT SUBCUT (07:42)
[2021-03-22] MEDS: 0.9 % Sodium Chloride Flush 3 ML SYRINGE IVFLUSH (07:42)
--- NOTE | 2021-03-22 07:50 | P.PNGS_ITS ---
Subjective Subjective Date of Service: 03/22/21 Interval history: says she feels well does complain of neck pain, extremity pain - has fibromyalgia by history good GI function Physical Exam Vital Signs: Vital Signs: Last Vital Signs Temp 97.1 F 03/22/21 07:42 Pulse 74 03/22/21 07:42 Resp 17 03/22/21 07:42 BP 149/66 H 03/22/21 07:42 Pulse Ox 97 03/22/21 07:42 BMI result Body Mass Index 23.4 Const: General: comfortable and no acute distress Resp: Effort & Inspection: normal respiratory effort Cardio: Rate: regular rate GI: Palpation (GI): Soft to palpation, not firm, nontender and no guarding Objective Data Active Medications Acetaminophen (Acetaminophen 325 Mg Tablet) 650 mg PO Q6H PRN PRN Reason: Fever Last Admin: 03/22/21 03:42 Dose: 650 mg Documented by: DHRUV Amlodipine Besylate (Amlodipine Besylate 5 Mg Tablet) 5 mg PO DAILY [facility]; Protocol Last Admin: 03/22/21 07:41 Dose: 5 mg Documented by: AMY Aripiprazole (Aripiprazole 20 Mg Tablet) 20 mg PO BEDTIME [facility] Last Admin: 03/21/21 20:12 Dose: 20 mg Documented by: DHRUV Carvedilol (Carvedilol 6.25 Mg Tablet) 6.25 mg PO BID [facility]; Protocol Last Admin: 03/22/21 07:41 Dose: 6.25 mg Documented by: AMY Dextrose (Dextrose 50 % 25 Gm/50 Ml Vial) 25 gm IVPUSH Q15M PRN; Protocol PRN Reason: per Hypoglycemia Standing Ord. Furosemide (Furosemide 20 Mg Tablet) 20 mg PO DAILY [facility]; Protocol Last Admin: 03/22/21 07:40 Dose: 20 mg Documented by: AMY Gabapentin (Gabapentin 100 Mg Capsule) 100 mg PO BID [facility] Last Admin: 03/22/21 07:41 Dose: 100 mg Documented by: AMY Glucose (Glucose Gel 15 Gm Gel..Gram.) 15 gm PO Q15M PRN; Protocol PRN Reason: per Hypoglycemia Standing Ord. Hydroxyzine HCl (Hydroxyzine Hcl 10 Mg Tablet) 10 mg PO Q8H PRN PRN Reason: Anxiety Vancomycin HCl 1,250 mg/ (Sodium Chloride) 250 mls @ 166.667 mls/hr IV Q24H [facility] Last Infusion: 03/21/21 17:22 Dose: 0 mls/hr Documented by: AMY Piperacillin Sod/Tazobactam (Sod 3.375 gm/ Sodium Chloride) 50 mls @ 100 mls/hr IV Q6H [facility] Last Infusion: 03/22/21 02:57 Dose: 0 mls/hr Documented by: DHRUV Insulin Glargine (Insulin Glargine,Hum.Rec.Anlog 100 Unit/Ml 10 Ml Vial) 10 unit SUBCUT DAILY [facility] Last Admin: 03/22/21 07:42 Dose: 10 unit Documented by: AMY Insulin Human Lispro (Insulin Lispro 100 Unit/Ml 3 Ml Vial) 0 unit SUBCUT QIDACHS [facility]; Protocol Last Admin: 03/22/21 07:41 Dose: 2 unit Documented by: AMY Lidocaine (Lidocaine 4 % Patch Adh..Patch) 1 patch TRANSDERMA DAILY [facility]; Protocol Last Admin: 03/22/21 07:40 Dose: 1 patch Documented by: AMY Pharmacy Consult (Consult Rx Perform Med Rec) 1 each MISCELLANE ONCE PRN PRN Reason: Consult order Pharmacy Consult (Consult Rx Vancomycin Dosing) 1 each MISCELLANE DAILY PRN PRN Reason: Consult order Potassium Chloride (Potassium Chloride Er 20 Meq Tab.Er.Prt) 40 meq PO BID [facility] Last Admin: 03/22/21 07:40 Dose: 40 meq Documented by: AMY Potassium Chloride (Potassium Chloride Er 20 Meq Tab.Er.Prt) 20 meq PO DAILY [facility] Last Admin: 03/22/21 07:41 Dose: 20 meq Documented by: AMY Sodium Chloride (0.9 % Sodium Chloride Flush 3 Ml Syringe) 3 ml IVFLUSH QSHIFT [facility] Last Admin: 03/22/21 07:42 Dose: 3 ml Documented by: AMY Venlafaxine HCl (Venlafaxine Hcl Er 150 Mg Cap.Er.24h) 150 mg PO DAILY [facility] Last Admin: 03/22/21 07:41 Dose: 150 mg Documented by: AMY Labs CBC & Chem 7: 03/21/21 07:15 03/22/21 05:26 Labs: Laboratory Results - last 24 hr 03/21/21 03/21/21 03/21/21 07:15 07:15 11:07 Anion Gap 11 L Estim Creat Clear Calc 50.7 Estimated GFR > 60 POC Glucose 230 H Random Glucose 218 H Calcium 8.6 D Vancomycin Trough 15.2 03/21/21 03/21/21 03/22/21 15:40 19:29 05:26 Anion Gap Estim Creat Clear Calc 51.4 Estimated GFR > 60 POC Glucose 279 H 303 H Random Glucose Calcium Vancomycin Trough 03/22/21 07:19 Anion Gap Estim Creat Clear Calc Estimated GFR POC Glucose 180 H Random Glucose Calcium Vancomycin Trough Procedures Date of Service Date of Service: 03/22/21 Progress Note: A&P Assessment and plan (1) Intra-abdominal abscess: Status: Acute Assessment and Plan: CT drainage - dry tap,as per radiologist likely old hematoma denies abdl pain no fever ok to dc home dw her son has [employer] Fall Risk Details Current Medications: Current Medications Acetaminophen (Acetaminophen 325 Mg Tablet) 650 mg PO Q6H PRN PRN Reason: Fever Last Admin: 03/22/21 03:42 Dose: 650 mg Documented by: Amlodipine Besylate (Amlodipine Besylate 5 Mg Tablet) 5 mg PO DAILY [facility]; Protocol Last Admin: 03/22/21 07:41 Dose: 5 mg Documented by: Aripiprazole (Aripiprazole 20 Mg Tablet) 20 mg PO BEDTIME [facility] Last Admin: 03/21/21 20:12 Dose: 20 mg Documented by: Carvedilol (Carvedilol 6.25 Mg Tablet) 6.25 mg PO BID [facility]; Protocol Last Admin: 03/22/21 07:41 Dose: 6.25 mg Documented by: Dextrose (Dextrose 50 % 25 Gm/50 Ml Vial) 25 gm IVPUSH Q15M PRN; Protocol PRN Reason: per Hypoglycemia Standing Ord. Furosemide (Furosemide 20 Mg Tablet) 20 mg PO DAILY [facility]; Protocol Last Admin: 03/22/21 07:40 Dose: 20 mg Documented by: Gabapentin (Gabapentin 100 Mg Capsule) 100 mg PO BID [facility] Last Admin: 03/22/21 07:41 Dose: 100 mg Documented by: Glucose (Glucose Gel 15 Gm Gel..Gram.) 15 gm PO Q15M PRN; Protocol PRN Reason: per Hypoglycemia Standing Ord. Hydroxyzine HCl (Hydroxyzine Hcl 10 Mg Tablet) 10 mg PO Q8H PRN PRN Reason: Anxiety Vancomycin HCl 1,250 mg/ (Sodium Chloride) 250 mls @ 166.667 mls/hr IV Q24H [facility] Last Infusion: 03/21/21 17:22 Dose: Infused Documented by: Piperacillin Sod/Tazobactam (Sod 3.375 gm/ Sodium Chloride) 50 mls @ 100 mls/hr IV Q6H [facility] Last Infusion: 03/22/21 02:57 Dose: Infused Documented by: Insulin Glargine (Insulin Glargine,Hum.Rec.Anlog 100 Unit/Ml 10 Ml Vial) 10 unit SUBCUT DAILY [facility] Last Admin: 03/22/21 07:42 Dose: 10 unit Documented by: Insulin Human Lispro (Insulin Lispro 100 Unit/Ml 3 Ml Vial) 0 unit SUBCUT QIDACHS [facility]; Protocol Last Admin: 03/22/21 07:41 Dose: 2 unit Documented by: Lidocaine (Lidocaine 4 % Patch Adh..Patch) 1 patch TRANSDERMA DAILY [facility]; Protocol Last Admin: 03/22/21 07:40 Dose: 1 patch Documented by: Pharmacy Consult (Consult Rx Perform Med Rec) 1 each MISCELLANE ONCE PRN PRN Reason: Consult order Pharmacy Consult (Consult Rx Vancomycin Dosing) 1 each MISCELLANE DAILY PRN PRN Reason: Consult order Potassium Chloride (Potassium Chloride Er 20 Meq Tab.Er.Prt) 40 meq PO BID [facility] Last Admin: 03/22/21 07:40 Dose: 40 meq Documented by: Potassium Chloride (Potassium Chloride Er 20 Meq Tab.Er.Prt) 20 meq PO DAILY [facility] Last Admin: 03/22/21 07:41 Dose: 20 meq Documented by: Sodium Chloride (0.9 % Sodium Chloride Flush 3 Ml Syringe) 3 ml IVFLUSH QSHIFT [facility] Last Admin: 03/22/21 07:42 Dose: 3 ml Documented by: Venlafaxine HCl (Venlafaxine Hcl Er 150 Mg Cap.Er.24h) 150 mg PO DAILY [facility] Last Admin: 03/22/21 07:41 Dose: 150 mg Documented by: Time Spent With Patient Time: Total time spent is greater than 50% in coordination of care (as documented) at patient's floor/unit and/or counseling patient: Time with patient: 15 - 24 minutes Quality Stroke Does the patient have a stroke diagnosis?: No VTE Prior VTE?: No VTE Risk Level:: Medical - moderate - high VTE Device Contraindication: N/A - Device Ordered VTE Drug Contraindication: N/A - Med Ordered
--- NOTE | 2021-03-22 08:58 | MHC.CM.PN ---
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
--- NOTE | 2021-03-22 10:20 | P.PNIM_ITS ---
Subjective Subjective Date of Service: 03/22/21 Interval History: History obtained via hourly sign language interpreter, complaining of persistent musculoskeletal pain, neck and right knee, denies no abdominal pain, no nause, no vomiting, no other issues overnight, Review of Systems General headache, no dizziness no fever chills.? CVS no chest pain, no palpitation.? Respiratory no cough, no sob.? Gastrointestinal no nausea no vomiting, no diarrhea Musculoskeletal right knee pain/back of neck pain unchanged Review of Systems: Yes all other systems are reviewed and are negative Physical Exam Vital Signs: Vital Signs: Last Vital Signs Temp 97.1 F 03/22/21 07:42 Pulse 74 03/22/21 07:42 Resp 17 03/22/21 07:42 BP 149/66 H 03/22/21 07:42 Pulse Ox 97 03/22/21 07:42 BMI result Body Mass Index 23.4 General awake ,alert x3 , resting comfortably in no acute distress.? Neck no JVD.? Normal neck examination, good range of motion CVS? regular rate rhythm, Respiratory lungs clear to auscultation, no respiratory distress, Gastrointestinal abdomen soft, no abdominal tenderness, bowel sounds audible, no guarding , no rigidity. Extremities no edema. Right knee mild swelling,no redness, no warmth, tenderness to palpation Neuro nonfocal Skin no rash Objective Data Labs CBC & Chem 7: 03/21/21 07:15 03/22/21 05:26 Labs: Laboratory Results - last 24 hr 03/21/21 03/21/21 03/21/21 11:07 15:40 19:29 Estim Creat Clear Calc Estimated GFR POC Glucose 230 H 279 H 303 H 03/22/21 03/22/21 05:26 07:19 Estim Creat Clear Calc 51.4 Estimated GFR > 60 POC Glucose 180 H Assessment and Plan (1) Osteoarthritis of right knee: Status: Acute (2) Neck pain: Status: Acute (3) Epigastric pain: Status: Acute (4) Leukocytosis: Status: Acute Assessment and Plan: 71 year old women admitted by general surgery Intra-abdominal Hematoma versus abscess Abdominal pain/intra-abdominal fluid collection Abdominal pain Resolved, WBC trended down Continue iv meropenem and IV vanco day 6,Attempt was made for CT-guided drainage of right intra-abdominal fluid , no fluid was noted to be drained Since patient is asymptomatic with no nausea no vomiting, no fevers, no abdominal pain and tolerating diet therefore being discharged home on by mouth antibiotics with close outpatient surgical follow-up Thrombocytopenia Resolved Hypokalemia repleted and normalized , likely due to Lasix. Constipation. Resolved Neck pain. Seems MSK?has history of fibromyalgia, recommended to use analgesics, hot pack and gabapentin Knee pain seen by ortho,low concern for septic joints, no redness, no warmth, o steoarthritis on xray? Continue Tylenol and hot pack, reassured patient Hyperglycemia secondary to diabetes Continue home medication and diabetic diet Chronic Anemia no bleeding, stable H/H outpatient follow-up with PCP CAD Continue Plavix and beta-gomez HTN Soft blood pressure Amlodipine dose reduced to 5 mg daily History of depression continue home meds, no acute decompensation DVT prophylaxis on compression boots Quality Stroke Does the patient have a stroke diagnosis?: No VTE Prior VTE?: No VTE Risk Level:: Medical - moderate - high VTE Device Contraindication: N/A - Device Ordered VTE Drug Contraindication: N/A - Med Ordered
--- NOTE | 2021-03-25 12:58 | P.DS_ITS ---
DS: Providers Provider Date of Service: 03/22/21 Date of admission: 03/12/21 12:26 Primary care physician: Pascual Darnell MD Consults: 03/12/21 12:26 Consult to Hospitalist Routine Consulting Provider: Hospitalist Reason For Exam: Diabetes 03/16/21 11:50 Consult to Infectious Diseases Routine Consulting Provider: Audelia Bruce Reason for consultation: Intraabdominal collection, Leukocytosis for your eval 03/16/21 18:14 Consult to Orthopedics Routine Consulting Provider: Janae Victor Reason for consultation: right knee swelling and elevated wbc Has provider been notified: No DS: Diagnosis Discharge Diagnosis (1) Osteoarthritis of right knee: Status: Acute (2) Neck pain: Status: Acute (3) Epigastric pain: Status: Acute (4) Leukocytosis: Status: Acute DS: Summary Hospital Course Hospital Course: [age] year old female with history of diabetes, dementia, fibromyalgia, admitted for vague abdominal pain on 03/12/2021. Her CAT scan showed what seemed to be a heterogenous collection in the gallbladder fossa. She had laparoscopic cholecystectomy last September, for acute severe cholecystitis. She had been doing well since then. She had leukocytosis admission so was started on the antibiotics with Zosyn. I reviewed her CAT scan with the radiologist who recommended against drainage at that time in view of the size of the collection and heterogenous consistency. I repeated her CT scan on her on day of admission. This showed the collection to be similar in size and consistency. She was kept on antibiotics. She was tolerating diet at that time. She may need to have leukocytosis despite clinical improvement. I the refore repeated her CT scan on 03/19/2021. This remained similar in appearance but in view of her leukocytosis, she for CT guided aspiration. This turned out to be a dry tap consistent with I old hematoma probably. Her leukocytosis had trended down so she was discharged on 03/22/2021. She also had complaints of neck pain and muscle pain throughout. This was deemed secondary to her fibromyalgia. She was also being followed by the hospitalist service during her admission. Status at Discharge Cognitive/behavioral status at discharge: She has advanced dementia but is able to communicate verbally Overall status at discharge: patient is back to baseline Time Spent with Patient Time attestation: Total time spent providing and/or coordinating discharge services: Discharge coordination time: Greater than 30 minutes Quality: Stroke Does the patient have a stroke diagnosis?: No Physical Exam Vital Signs: Vital Signs: Last Vital Signs Temp 97.1 F 03/22/21 07:42 Pulse 74 03/22/21 07:42 Resp 17 03/22/21 07:42 BP 149/66 H 03/22/21 07:42 Pulse Ox 97 03/22/21 07:42 BMI result Body Mass Index 23.4 Const: Other: Has slow mentation but otherwise communicates verbally and answers questions General: comfortable and no acute distress Orientation/consciousness: patient oriented x3 Neck: Neck: Yes no lymphadenopathy Resp: Auscultation: clear to auscultation bilaterally Cardio: Rhythm: regular rhythm GI: Palpation (GI): Soft to palpation, nontender and no guarding Neuro: General: patient oriented x3 DS: Data Data Completed and Pending Completed studies during hospitalization [Text1]: Procedures Release Peritoneum, Percutaneous Endoscopic Approach (01/02/21) Resection of Gallbladder, Percutaneous Endoscopic Approach (01/02/21) Transfusion of Nonautologous Red Blood Cells into Peripheral Vein, Percutaneous Approach (01/02/21) Imaging CT scan - abdomen: Radiologist's impression: ITS Impressions Abdomen/Pelvis CT 03/12/21 10:27 IMPRESSION: 3 x 4 cm heterogeneous fluid collection in the gallbladder fossa and small amount of air. Small abscess or infected hematoma should be considered. Trace ascites seen surrounding the liver. If there is clinical suspicion of a bile leak, HIDA scan would be recommended. No biliary duct dilatation. Stool throughout the colon suggestive of constipation. Postoperative changes from gastric bypass surgery. Fleischner guidelines were followed. Abdomen/Pelvis CT 03/14/21 08:00 IMPRESSION: No significant change in the 2.4 x 4 cm fluid collection in the gallbladder fossa and small amount of air. Small amount of ascites adjacent to the liver and in the pelvis also unchanged. If there is clinical suspicion of bile leak, HIDA scan would be recommended. Constipation. Postsurgical changes from gastric bypass. Fleischner guidelines were followed. Knee X-Ray 03/16/21 17:44 IMPRESSION: [id number] tricompartmental degenerative joint changes. No acute abnormality. Abdomen/Pelvis CT 03/19/21 15:52 IMPRESSION: 1. Status post cholecystectomy. Persistent small fluid collection with air in the gallbladder fossa unchanged since prior CAT scan 03/14/2021. 2. Status post gastric bypass surgery. No acute abnormality of the bowel. Abscess Drainage CT 03/20/21 14:55 IMPRESSION: Successful attempted right upper quadrant gallbladder fossa fluid collection. However, no fluid could be withdrawn or aspirated during the exam. Patient is status post cholecystectomy. Results were conveyed to Dr. Elmira Pelayo after the exam. Discharge Plan Discharge Patient Disposition: Home, Self-Care Discharge Diagnosis: intraabdominal abscess Referrals: Pascual Darnell MD [Primary Care Provider] - 1 Week Tay Pelayo MD [Physician] - 1 Week Discharge Medications: New amoxicillin-pot clavulanate [Augmentin] 500-125 mg tablet 1 tab PO BID Qty: 20 RF: 0 amlodipine 5 mg Tablet 5 mg PO DAILY Qty: 30 RF: 0 Continued (DME) insulin syringe-needle U-100 [BD Insulin Syringe Ultra-Fine] 0.3 mL 31 gauge x 5/16 syringe See Rx Instructions .ROUTE .MEDSUPPLY Qty: 100 RF: 0 (DME) Dexcom G6 Sensor Device See Rx Instructions .ROUTE .MEDSUPPLY Qty: 3 RF: 11 clopidogrel 75 mg tablet 75 mg PO QAM Qty: 30 RF: 5 (DME) FreeStyle Lite Strips Strip See Rx Instructions .ROUTE .MEDSUPPLY Qty: 200 RF: 6 carvedilol 6.25 mg tablet 6.25 mg PO BID 90 Days Qty: 180 RF: 4 furosemide 20 mg tablet 20 mg PO QAM Qty: 90 RF: 3 cholecalciferol (vitamin D3) 50 mcg (2,000 unit) capsule 50 mcg PO DAILY 30 Days Qty: 30 RF: 5 (DME) blood-glucose meter [FreeStyle Lite Meter] Kit See Rx Instructions .ROUTE .MEDSUPPLY Qty: 1 RF: 0 sucralfate 1 gram tablet 1 tab PO BID RF: 0 clonazepam 0.5 mg tablet 1 tab PO Q8H PRN (Reason: anxiety) RF: 0 Fiasp FlexTouch U-100 Insulin 100 unit/mL (3 mL) insulin pen 2 - 15 unit subcut QIDACHS PRN (Reason: Hyperglycemia) RF: 0 calcium citrate 200 mg (950 mg) tablet 400 mg PO BID@1200,1800 RF: 0 Tresiba FlexTouch U-100 100 unit/mL (3 mL) insulin pen 12 unit subcut DAILY RF: 0 venlafaxine [Effexor XR] 150 mg capsule,extended release 24hr 150 mg PO DAILY RF: 0 atorvastatin 80 mg tablet 80 mg PO DAILY 30 Days Qty: 30 RF: 5 aripiprazole 20 mg tablet 20 mg PO BEDTIME RF: 0 (DME) blood sugar diagnostic Strip See Rx Instructions ea Not Applicable .MEDSUPPLY Qty: 10 RF: 0 gabapentin 100 mg capsule 100 mg PO BID RF: 0 hydroxyzine HCl 10 mg tablet 10 mg PO Q8H PRN (Reason: Anxiety) RF: 0 prazosin 2 mg capsule 4 mg PO BEDTIME RF: 0 diclofenac sodium 75 mg tablet,delayed release (DR/EC) 75 mg PO BID RF: 0 esomeprazole magnesium 40 mg capsule,delayed release(DR/EC) 40 mg PO DAILY RF: 0 Tirosint 88 mcg capsule 88 mcg PO DAILY 30 Days Qty: 30 RF: 8 (DME) pen needle, diabetic [BD Cherelle 2nd Gen Pen Needle] 32 gauge x 5/32 needle See Rx Instructions .MEDSUPPLY Qty: 200 RF: 7 Discontinued amlodipine 10 mg tablet 10 mg PO DAILY 30 Days Qty: 30 RF: 5 Discharge Orders: Discharge Order (Routine); Ordered 03/22/21 Ordered By: Tay Pelayo Diet: diabetic diet Activity on Discharge: As tolerated Stand Alone Forms: Patient Portal Discharge page Activity Restrictions/Additional Instructions: call Dr. Pelayo's office for [facility] [phone] Care Plan Goals: Resolution of abscess Health Concerns: Diabetes mellitus, s/p lap CCY with intraabdominal abscess Plan of Treatment: PO antibiotics Assessment: Improved Discharge Date/Time: 03/22/21 09:39
== END 2021-03-22 09:39 | disposition home or self-care (01) | DRG 920 ==
LOC: HO.ED 12:14 → HO.EDOVER 12:55 → HO.S3 19:44
PROVIDERS: Hospitalist; Nurse Practitioner Acute Care; Physician Assistant Surgical; Radiology Diagnostic Radiology; Surgery; Admitting Provider Surgery; Emergency Provider Emergency Medicine; PCP Internal Medicine; Visit Provider Surgery
PROC: 0W9H3ZZ Drainage of Retroperitoneum, Percutaneous Approach (ICD-10-PCS; principal; 2021-03-20 14:05)
DX: K91.870 Postprocedural hematoma of a digestive system organ or structure following a digestive system procedure (principal); E87.1 Hypo-osmolality and hyponatremia; I25.10 Atherosclerotic heart disease of native coronary artery without angina pectoris; I10 Essential (primary) hypertension; D72.829 Elevated white blood cell count, unspecified; K59.00 Constipation, unspecified; E11.65 Type 2 diabetes mellitus with hyperglycemia; D69.6 Thrombocytopenia, unspecified; M79.7 Fibromyalgia; F03.90 Unspecified dementia, unspecified severity, without behavioral disturbance, psychotic disturbance, mood disturbance, and anxiety; Z20.822 Contact with and (suspected) exposure to COVID-19; Z90.49 Acquired absence of other specified parts of digestive tract; Z98.84 Bariatric surgery status; Z88.5 Allergy status to narcotic agent; Z88.6 Allergy status to analgesic agent; Z79.4 Long term (current) use of insulin; Z79.02 Long term (current) use of antithrombotics/antiplatelets; Z79.899 Other long term (current) drug therapy
CPT/HCPCS: 36415; 49406; 73564; 74176; 74177; 80048; 80076; 80202; 81003; 82140; 82565; 82803; 82947; 83605; 83690; 83735; 84443; 84484; 85025; 85027; 85610; 87040; 87205; 87635; 93005; 96361; 96365; 96375; 99152; 99153; 99285; C1729; J2185; J2270; J2405; J2543; J3370; Q9967

== ENCOUNTER → 2021-04-02 09:10 | Outpatient (BNVA) | payer MEDICARE, SELFPAY | PROVIDERS: PCP Internal Medicine; Referring Provider Internal Medicine; Visit Provider Surgery | DX: Z09 Encounter for follow-up examination after completed treatment for conditions other than malignant neoplasm (principal); Z90.49 Acquired absence of other specified parts of digestive tract | CPT/HCPCS: 99212 ==

== ENCOUNTER 2021-04-24 07:35 | Outpatient (REF) | payer MEDICARE, SELFPAY | END 2021-04-24 07:36 | disposition home or self-care (01) | LOC: HO.MDS 07:35 | PROVIDERS: PCP Internal Medicine; Visit Provider Internal Medicine Medical Oncology | DX: D50.9 Iron deficiency anemia, unspecified (principal) | CPT/HCPCS: 96365; 96366; J1200; J1750; Q0163 ==

== ENCOUNTER 2021-05-07 11:16 | Outpatient (REF) | payer MEDICARE, SELFPAY ==
--- NOTE | ~2021-05-07 | XR_ITS ---
EXAMINATION: XR RIBS, RIGHT, WITH PA CHEST CLINICAL INFORMATION: Rib fracture. COMPARISON: CXR from 12/08/2020 TECHNIQUE: Chest, PA view 3 views of the right ribs were obtained. FINDINGS: Lungs are well expanded and clear. No consolidation, pleural effusion or pneumothorax. Cardiomediastinal silhouette has normal size and contour. The ribs have an intact appearance. No evidence of an acute, displaced rib fracture. No focal lytic or blastic bone lesion. Multiple surgical clips are seen within the abdomen. XR/XR ribs RT min 3V w CXR1V IMPRESSION: * No acute pulmonary disease. * No radiographic evidence of rib fractures.
== END 2021-05-07 11:17 | disposition home or self-care (01) ==
LOC: HO.XRAY 11:16
PROVIDERS: PCP Internal Medicine; Visit Provider Psychiatry & Neurology Neurology
DX: S22.39XD Fracture of one rib, unspecified side, subsequent encounter for fracture with routine healing (principal)
CPT/HCPCS: 71101

== ENCOUNTER 2021-05-16 10:46 | Outpatient (REF) | payer MEDICARE, SELFPAY ==
--- NOTE | ~2021-05-16 | MM_ITS ---
EXAMINATION: MM SCREENING DIGITAL BREAST TOMOSYNTHESIS, BILATERAL CLINICAL INFORMATION: Screening. Asymptomatic. The lifetime risk of breast cancer based on the Tyrer-Cuzick Model is 3%. COMPARISON: Mammography: 02/23/2020, 09/28/2018, 09/05/2017 TECHNIQUE: Digital breast tomosynthesis is performed in both the craniocaudal and mediolateral oblique views along with computer-aided detection (CAD). Synthesized 2D images are generated from the tomosynthesis. Additional right CC view is provided. FINDINGS: The breasts are heterogeneously dense, which may obscure small masses (ACR BI-RADS breast composition Category c). There are no significant masses, abnormal calcifications, or other abnormalities. There is a probable hamartoma again noted posterior upper right breast on MLO view similar to prior studies. Scattered bilateral vascular and some punctate round calcifications are again seen. There are no significant changes from prior studies. MM/MM tomosynthesis screening BI IMPRESSION: No mammographic evidence of malignancy. ASSESSMENT: BI-RADS 2: Benign RECOMMENDATION: Routine annual mammography screening. This patient's information was entered into a reminder system with a target due date for their next mammogram.
== END 2021-05-16 10:47 | disposition home or self-care (01) ==
LOC: HO.MAMMO 10:46
PROVIDERS: Visit Provider Internal Medicine Endocrinology, Diabetes & Metabolism
DX: Z12.31 Encounter for screening mammogram for malignant neoplasm of breast (principal)
CPT/HCPCS: 77063; 77067

== ENCOUNTER → 2021-06-22 10:19 | Outpatient (BNVA) | payer MEDICARE, SELFPAY | PROVIDERS: PCP Internal Medicine; Visit Provider Nurse Practitioner Gerontology | DX: E10.649 Type 1 diabetes mellitus with hypoglycemia without coma (principal); E78.5 Hyperlipidemia, unspecified; E21.1 Secondary hyperparathyroidism, not elsewhere classified; E66.9 Obesity, unspecified; I10 Essential (primary) hypertension; E06.3 Autoimmune thyroiditis; E03.8 Other specified hypothyroidism | CPT/HCPCS: 82947; 83036; 96372; 99212; J1815 ==

== ENCOUNTER 2021-07-17 10:18 | Outpatient (REF) | payer OTHER, SELFPAY ==
[2021-07-17 12:04] LABS: Alanine Aminotransferase 205 U/L (0-31); Albumin Level 3.7 g/dL (3.5-5.0); Alkaline Phosphatase 177 U/L (39-117); Anion Gap 11 (12-20); Aspartate Amino Transferase 88 U/L (5-31); Bilirubin Total 0.4 mg/dL (0.0-1.0); Blood Urea Nitrogen 19 mg/dL (9-16); Calcium 9.2 mg/dL (8.4-10.2); Carbon Dioxide 31 mmol/L (22-29); Chloride 101 mmol/L (96-108); Cholesterol 90 mg/dL; Estimated Glomerular Filt Rate 55; Glucose Fasting 244 mg/dL (60-99); HDL Cholesterol 44 mg/dL; LDL Cholesterol Calculated 36 mg/dl; Potassium 3.7 mmol/L (3.3-5.1); Sodium 139 mmol/L (135-145); Total Protein 6.2 g/dL (6.5-8.0); Triglycerides 51 mg/dL
[2021-07-17 12:11] LABS: Thyroid Stimulating Hormone 21.04 uIU/mL (0.32-4.0); Vitamin D 25-OH Total 47.1 ng/mL (>30)
[2021-07-17 13:11] LABS: Creatinine Urine 124.91 mg/dL; Microalbum/Creatinine Ratio Ur 16.8 ug/mg cr
[2021-07-19 07:21] LABS: LDL Cholesterol Direct 26 mg/dL (<100)
== END 2021-07-17 10:19 | disposition home or self-care (01) ==
LOC: HO.LAB 10:18
PROVIDERS: PCP Internal Medicine; Visit Provider Nurse Practitioner Gerontology
DX: E10.649 Type 1 diabetes mellitus with hypoglycemia without coma (principal); E55.9 Vitamin D deficiency, unspecified
CPT/HCPCS: 36415; 80053; 80061; 82043; 82306; 83721; 84443

== ENCOUNTER → 2021-07-20 11:00 | Outpatient (BNVA) | payer OTHER, SELFPAY | PROVIDERS: PCP Internal Medicine; Visit Provider Registered Nurse Diabetes Educator | DX: E10.649 Type 1 diabetes mellitus with hypoglycemia without coma (principal) | CPT/HCPCS: 99211 ==

== ENCOUNTER → 2021-08-22 10:56 | Outpatient (BNVA) | payer OTHER, SELFPAY | PROVIDERS: PCP Internal Medicine; Visit Provider Registered Nurse Diabetes Educator | DX: E10.649 Type 1 diabetes mellitus with hypoglycemia without coma (principal) | CPT/HCPCS: 99211 ==

== ENCOUNTER → 2021-08-29 10:38 | Outpatient (BNVA) | payer OTHER, SELFPAY | PROVIDERS: PCP Internal Medicine; Referring Provider Internal Medicine; Visit Provider Internal Medicine | DX: I25.10 Atherosclerotic heart disease of native coronary artery without angina pectoris (principal); I10 Essential (primary) hypertension; E78.49 Other hyperlipidemia; E10.649 Type 1 diabetes mellitus with hypoglycemia without coma; Z98.84 Bariatric surgery status | CPT/HCPCS: 93005; 99212 ==

== ENCOUNTER 2021-09-05 09:48 | Outpatient (REF) | payer OTHER, SELFPAY ==
--- NOTE | ~2021-09-05 | US_ITS ---
EXAMINATION: US ABDOMEN COMPLETE CLINICAL INFORMATION: Elevated liver enzymes. COMPARISON: CT abdomen and pelvis 03/19/2021. Ultrasound abdomen complete 01/01/2021 and 05/28/2018. X-ray KUB 01/23/2017. TECHNIQUE: Real-time imaging of the abdominal viscera. FINDINGS: PANCREAS: No abnormal mass or peripancreatic inflammatory change. ABDOMINAL AORTA: The proximal, mid, and distal segments are normal in caliber. INFERIOR VENA CAVA: Visualized portions are normal. LIVER: Normal. The liver is normal in size. The liver contour is normal. Parenchymal echogenicity is normal. No focal hepatic lesion. There is no intrahepatic biliary duct dilatation seen. GALLBLADDER: Surgically absent. COMMON BILE DUCT: Normal in caliber measuring 0.6 cm in diameter. RIGHT KIDNEY: Normal. No hydronephrosis. No renal calculi or focal parenchymal lesions. The kidney measures 9.2 cm in maximum dimension. LEFT KIDNEY: Normal. No hydronephrosis. No renal calculi or focal parenchymal lesions. The kidney measures 9.4 cm in maximum dimension. SPLEEN: Normal. The spleen measures 7.7 cm in maximum dimension. ADDITIONAL FINDINGS: There is a small right pleural effusion as well as a small pericardial effusion present. US/US abdomen complete IMPRESSION: Small right pleural effusion and small pericardial effusion. No significant abnormality within the abdomen appreciated.
== END 2021-09-05 09:49 | disposition home or self-care (01) ==
LOC: HO.US 09:48
PROVIDERS: Visit Provider Internal Medicine
DX: R74.01 Elevation of levels of liver transaminase levels (principal)
CPT/HCPCS: 76700

== ENCOUNTER 2021-09-07 09:31 | Outpatient (REF) | payer OTHER, SELFPAY ==
[2021-09-07 10:56] LABS: MANUAL DIFF FLAG NO
[2021-09-07 11:14] LABS: INTERNATIONAL NORM RATIO 0.9 (0.9-1.1); Prothrombin Time 10.5 SEC (9.9-13.0)
[2021-09-07 11:29] LABS: Gamma Glutamyl Transpeptidase 82 U/L (7-33)
[2021-09-07 11:47] LABS: Ferritin 787 ng/mL (10-250)
[2021-09-07 11:48] LABS: HBS Num1 1.18 mIU/mL (0-7.99); HBc Num1 0.06 S/CO (0.00-0.79); HBsAGNum1 0.21 S/CO (0.00-0.99); HIV AB/AG Nonreactive (Nonreactive); HIV Num 1 0.07 S/CO (0.00-0.99); Hepatitis A Antibody IgM 0.51 Index (0-0.79); Hepatitis B Core Antibody Nonreactive (Nonreactive); Hepatitis B Surface Antigen Negative (Negative); ~HepC Num1 0.09 S/CO (0.00-0.79); ~Hepatitis A Antibody IgM Nonreactive (Nonreactive); ~Hepatitis B Surface Antibody NONREACTIVE (Nonreactive); ~Hepatitis C Antibody Nonreactive (Nonreactive)
[2021-09-07 14:00] LABS: Basophils Absolute Auto 0.1 X10*3/uL (0.0-0.2); Eosinophils Absolute Auto 1.9 X10*3/uL (0.0-0.4); Eosinophils Percent Auto 16.3 % (0-4); Hematocrit 37.1 % (37.0-47.0); Hemoglobin 11.6 g/dl (12.0-16.0); Imm Gran Abs Auto 0.07 X10*3/uL (0.00-0.03); Imm Gran Pct Auto 0.6 % (0.0-0.4); Lymphocytes Absolute Auto 2.3 X10*3/uL (1.2-4.9); Lymphocytes Percent Auto 19.3 % (20-40); Mean Corpuscular HGB Conc 31.3 g/dl (31.0-35.0); Mean Corpuscular Hemoglobin 27.4 pg (27.0-33.0); Mean Corpuscular Volume 87.5 fL (80.0-98.0); Mean Platelet Volume 9.9 fL (9.4-12.3); Monocytes Absolute Auto 0.9 X10*3/uL (0.1-1.2); Monocytes Percent Auto 7.4 % (2-11); Neutrophils Absolute Auto 6.5 x10*3/uL (2.0-8.3); Neutrophils Percent Auto 55.4 % (45-73); Platelet Count 332 X10*3/uL (160-400); Red Blood Count 4.24 X10*6/uL (4.20-5.50); Red Cell Distribution Width 14.2 % (11.0-16.0); White Blood Count 11.8 X10*3/uL (4.8-10.8)
[2021-09-10 12:56] LABS: Anti Nuclear Antibody Pattern Nuclear, Speckled; Anti Nuclear Antibody Screen POSITIVE (NEGATIVE)
[2021-09-10 13:16] LABS: Alpha Fetoprotein 3.9 ng/mL
[2021-09-11 13:37] LABS: Mitochondrial Antibodies NEGATIVE (NEGATIVE)
[2021-09-12 14:02] LABS: Smooth Muscle Antibody <20 U (<20)
== END 2021-09-07 09:32 | disposition home or self-care (01) ==
LOC: HO.LAB 09:31
PROVIDERS: PCP Internal Medicine; Referring Provider Internal Medicine; Visit Provider Nurse Practitioner
DX: Z11.4 Encounter for screening for human immunodeficiency virus [HIV] (principal); R79.89 Other specified abnormal findings of blood chemistry
CPT/HCPCS: 36415; 82105; 82728; 82977; 85025; 85610; 86015; 86038; 86039; 86255; 86256; 86704; 86706; 86709; 86803; 87340; 87389; 99202

== ENCOUNTER → 2021-10-19 10:26 | Outpatient (BNVA) | payer OTHER, SELFPAY | PROVIDERS: PCP Internal Medicine; Visit Provider Nurse Practitioner | DX: K59.04 Chronic idiopathic constipation (principal); R79.89 Other specified abnormal findings of blood chemistry | CPT/HCPCS: 99212 ==

== ENCOUNTER → 2021-10-24 10:58 | Outpatient (BNVA) | payer OTHER, SELFPAY | PROVIDERS: PCP Internal Medicine; Visit Provider Registered Nurse Diabetes Educator | DX: E10.649 Type 1 diabetes mellitus with hypoglycemia without coma (principal) | CPT/HCPCS: 99211 ==

== ENCOUNTER 2021-11-29 10:35 | Emergency (ER) | payer OTHER, SELFPAY ==
--- NOTE | ~2021-11-29 | XR_ITS ---
EXAMINATION: XR CHEST CLINICAL INFORMATION: Chest pressure COMPARISON: 05/07/2021 TECHNIQUE: 2 views of the chest were obtained. FINDINGS: No acute finding. The cardiac silhouette is within normal limits. There is no infiltrate. No failure. The hilar regions are felt to be comparable. Mild kyphosis in the thoracic spine with degenerative change XR/XR chest 2V IMPRESSION: No acute finding.
--- NOTE | 2021-11-29 10:41 | ECG_ITS ---
Test Reason : CHEST PAIN Blood Pressure : / mmHG Vent. Rate : 089 BPM Atrial Rate : 089 BPM P-R Int : 132 ms QRS Dur : 094 ms QT Int : 360 ms P-R-T Axes : 050 046 069 degrees QTc Int : 438 ms Normal sinus rhythm Normal ECG When compared with ECG of 12-MAR-2021 12:56, ST no longer depressed in Inferior leads ST no longer depressed in Lateral leads T wave inversion no longer evident in Inferior leads Nonspecific T wave abnormality no longer evident in Anterolateral leads QT has lengthened Referred By: Generic ED Physician Electronically Signed By:FRANNY CUADRA
[2021-11-29 11:22] VITALS: BP 130/62; PULSE 86; RESP 16; TEMP 36.4; O2SAT 99; BMI 29.0
[2021-11-29 11:39] LABS: MANUAL DIFF FLAG NO
[2021-11-29 11:41] LABS: Basophils Absolute Auto 0.1 X10*3/uL (0.0-0.2); Basophils Percent Auto 0.9 % (0-2); Eosinophils Absolute Auto 1.2 X10*3/uL (0.0-0.4); Eosinophils Percent Auto 11.4 % (0-4); Hematocrit 35.2 % (37.0-47.0); Hemoglobin 11.2 g/dl (12.0-16.0); Imm Gran Abs Auto 0.14 X10*3/uL (0.00-0.03); Imm Gran Pct Auto 1.3 % (0.0-0.4); Lymphocytes Absolute Auto 2.2 X10*3/uL (1.2-4.9); Lymphocytes Percent Auto 20.8 % (20-40); Mean Corpuscular HGB Conc 31.8 g/dl (31.0-35.0); Mean Corpuscular Hemoglobin 27.3 pg (27.0-33.0); Mean Corpuscular Volume 85.9 fL (80.0-98.0); Mean Platelet Volume 10.3 fL (9.4-12.3); Monocytes Absolute Auto 0.7 X10*3/uL (0.1-1.2); Monocytes Percent Auto 6.9 % (2-11); Neutrophils Absolute Auto 6.3 x10*3/uL (2.0-8.3); Neutrophils Percent Auto 58.7 % (45-73); Platelet Count 255 X10*3/uL (160-400); Red Cell Distribution Width 15.9 % (11.0-16.0); White Blood Count 10.7 X10*3/uL (4.8-10.8)
[2021-11-29 11:53] LABS: Anion Gap 16 (12-20); Blood Urea Nitrogen 21 mg/dL (9-16); Calcium 9.2 mg/dL (8.4-10.2); Carbon Dioxide 21 mmol/L (22-29); Chloride 103 mmol/L (96-108); Creatinine Clr Calc Pharmacy 33.6; Estimated Glomerular Filt Rate 42; Glucose Random 340 mg/dL (60-115); Potassium 4.3 mmol/L (3.3-5.1); Sodium 136 mmol/L (135-145)
--- NOTE | 2021-11-29 12:00 | ED.CHESTPAIN ---
HPI - Chest Pain General Chief Complaint: Chest Pain Stated Complaint: CHEST PRESSURE PALPATIONS Time Seen by Provider: 11/29/21 12:00 Source: patient Mode of arrival: ambulatory Limitations: language barrier (Mongolian-speaking lead medical technologist utilized) History of Present Illness HPI narrative: Patient presents emergency department for evaluation of chest pain, described as a diffuse pressure and palpitations with left arm heaviness. Symptoms have been constant for the past 3 days. She is unable to identify any exacerbating or alleviating factors. She states she was at the public bath attendant's office today for vitamin B12, and she was noted to have hypertension, had reported she was experiencing this pain and was advised to come to the emergency department. Denies headache, lightheadedness, dizziness, shortness of breath, difficulty breathing, nausea, vomiting, abdominal pain, weakness, numbness or tingling of her extremities. Related Data Home Medications Medication Instructions Recorded Confirmed venlafaxine 150 mg 150 mg PO DAILY 01/28/20 10/04/21 capsule,extended release 24 hr (Effexor XR) blood sugar diagnostic #10 ea 02/17/20 10/04/21 gabapentin 100 mg capsule 100 mg PO BID 02/17/20 10/04/21 hydroxyzine HCl 10 mg tablet 10 mg PO Q8H PRN Anxiety 02/22/20 10/04/21 diclofenac sodium 75 mg 75 mg PO BID 08/28/20 10/04/21 tablet,delayed release esomeprazole magnesium 40 mg 40 mg PO DAILY 08/28/20 10/04/21 capsule,delayed release clonazepam 0.5 mg tablet 1 tab PO Q8H PRN anxiety 01/02/21 10/04/21 sucralfate 1 gram tablet 1 tab PO BID 01/02/21 10/04/21 amlodipine 10 mg tablet 5 mg PO DAILY 08/29/21 10/04/21 aripiprazole 15 mg tablet 20 mg PO DAILY 08/29/21 10/04/21 albuterol sulfate 90 mcg/actuation 2 puff PO Q4-6H PRN 10/19/21 aerosol inhaler (Ventolin HFA) losartan 50 mg tablet 50 mg PO QAM 10/19/21 prazosin 5 mg capsule 5 mg PO BEDTIME 10/19/21 Previous Rx's Medication Instructions Recorded atorvastatin 80 mg tablet 80 mg PO DAILY 30 days #30 tabs 01/28/20 insulin syringe-needle U-100 0.3 #100 ea 06/13/20 mL 31 gauge x 5/16 (BD Insulin Syringe Ultra-Fine) Dexcom G6 Sensor (blood-glucose #3 ea 07/26/20 sensor) blood-glucose meter (FreeStyle #1 ea 02/01/21 Lite Meter kit) folic acid 1 mg tablet 1 mg PO DAILY #90 tabs 04/27/21 blood sugar diagnostic (FreeStyle #200 ea 05/30/21 Lite Strips) glucagon 3 mg/actuation nasal 3 mg intranasal ONCE unresponsive 06/22/21 spray (Baqsimi) hypoglycemia 30 days #2 ea insulin aspart 2 - 14 unit subcut QID 30 days #15 06/22/21 (niacinamide)(U-100) 100 unit/mL(3 mL mL) subcutaneous pen (Fiasp FlexTouch U-100 Insulin) insulin degludec 100 unit/mL (3 15 unit (0.15 mL) subcut DAILY 90 06/22/21 mL) subcutaneous pen (Tresiba days #15 mL FlexTouch U-100 insulin) Tirosint 100 mcg capsule 100 mcg PO DAILY #30 caps 07/18/21 (levothyroxine) BD Cherelle 2nd Gen Pen Needle 32 #200 ea 09/03/21 gauge x 5/32 (pen needle, diabetic) clopidogrel 75 mg tablet 75 mg PO QAM #30 tabs 09/24/21 plecanatide 3 mg tablet (Trulance) 3 mg PO DAILY #30 tabs 10/19/21 calcium citrate 200 mg (950 mg) 400 mg PO BID #120 tabs 10/23/21 tablet furosemide 20 mg tablet 20 mg PO QAM #90 tabs 10/29/21 cholecalciferol (vitamin D3) 50 50 mcg PO DAILY 30 days #30 caps 11/20/21 mcg (2,000 unit) capsule carvedilol 6.25 mg tablet 6.25 mg PO BID #180 tabs 11/29/21 Allergies Allergy/AdvReac Type Severity Reaction Status Date / Time lorazepam [LORAZEPAM] Allergy Severe DELIRIUM Verified 10/19/21 10:34 celecoxib [From Celebrex] Allergy Intermediate ITCHING Verified 10/19/21 10:34 tramadol [TRAMADOL] Allergy Intermediate ITCHING Verified 10/19/21 10:34 zolpidem [Ambien] Allergy Unknown unknown Verified 10/19/21 10:34 Review of Systems Review of Systems: Constitutional : No Weight loss, No Fever, No Chills ENT/Mouth :? No sore throat, No Rhinorrhea Eyes: No Eye Pain, No Swelling Cardiovascular : pos Chest Pain, no SOB, no Dyspnea on Exertion, No Orthopnea, No Edema, positive Palpitations Respiratory : No Cough, No Sputum Gastrointestinal : pos Nausea, No Vomiting, No Diarrhea, No abdominal Pain, No Hematochezia, No Melena Genitourinary : No Dysuria, No Urinary Frequency Musculoskeletal : No joint pain, No Myalgias, No Joint Swelling Skin : No Skin Lesions, No rash Neuro : No Weakness, No Numbness, No Dizziness, No Headache Psych : No Anxiety/Panic, No Depression Heme/Lymph: No Bruising, No Lymphadenopathy Endocrine : No Polyuria, No Polydipsia Yes all other systems are reviewed and are negative [facility], [facility] Past Medical History Medical History Anxiety Atherosclerotic cardiovascular disease Cholecystitis Depression Diabetes type 1, uncontrolled Dyslipidemia Elevated liver function tests Essential hypertension Fibromyalgia Folliculitis Rona's disease History of myocardial infarction Hyperlipidemia, unspecified Hyperparathyroidism due to vitamin D deficiency Hypertension 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 Hypothyroidism Intestinal malabsorption following gastrectomy NSTEMI (non-ST elevated myocardial infarction) Obesity (BMI 30-39.9) Surgical History H/O gastric bypass History of bladder suspension procedure History of laparoscopic cholecystectomy Hx of appendectomy Status post laser cataract surgery of both eyes Family History Family History Father No problems noted. Mother CVA (cerebral vascular accident) Sister Hypertension Brother Hypertension Liver cancer Social History Social History Household Members: None and Unknown / Unable to assess Housing: Apartment Are you a primary senior care provider to a significant other at home: No Do you presently have visiting nurse or other home services: No Unable to assess alcohol history related to: Unable to respond Alcohol intake: never Patient Tobacco Use Status: Never used Tobacco Advance Directives: Yes Advance Directives Information Provided: No Advance Directives on File: No service: No Current occupational status: disabled Physical Exam Vital Signs: Vital Signs: Last Vital Signs Temp 99.1 F 11/29/21 14:38 Pulse 91 11/29/21 14:38 Resp 20 11/29/21 14:38 BP 139/68 11/29/21 14:38 Pulse Ox 99 11/29/21 14:38 O2 Del Method 11/29/21 14:38 BMI result Body Mass Index 29.0 Course Course Course Narrative: Patient is a 71-year-old female with a past medical history of type 1 diabetes, anemia, gastric bypass, hyperlipidemia, hypertension, ASCVD, NSTEMI in 2017 status post cardiac catheterization, anxiety, depression, hyperparathyroidism, hypothyroidism, Rona's. She presents emergency department today for evaluation of chest pain. She is overall well appearing. Vital signs are stable. Will obtain CBC to evaluate for leukocytosis/ anemia, CMP and lipase to evaluate for abnormal electrolytes /abnormal renal function/ abnormal hepatic/biliary function, EKG and troponin to evaluate for ischemia/ACS. Chest x-ray to evaluate for consolidation/ infiltrate/ mass/ pulmonary congestion and Urinalysis. She is already taking Plavix, will defer aspirin at this time. Reevaluation(s) Reevaluation #1: CBC reveals a normocytic anemia consistent with baseline. CMP is overall unremarkable. Troponin 5.5, EKG Reveals normal sinus rhythm no acute ischemic findings. Will obtain delta trop. Chest x-ray with no acute cardiopulmonary process. Time: 12:17 Reevaluation #2: Delta troponin negative, not consistent with ACS. PERC negative, not consistent with PE. Discussed this case with ED attending Dr. Diaz who agrees with plan of care. Patient to be discharged home, discussed worrisome signs and symptoms to return back to the emergency department for, advised outpatient follow-up with her primary care provider and city controller within 3 days. All questions were answered, and patient was discharged home in stable condition. Time: 15:14 MDM - Chest Pain Medical Records Data Attestation: I reviewed the patient's medical records. Lab Data Attestation: I reviewed the patient's lab results. Result diagrams: 11/29/21 11:23 11/29/21 11:23 Labs: Lab Results 08/11/22 08/11/22 08/11/22 Range/Units 11:23 11:23 11:23 WBC 10.7 (4.8-10.8) X10*3/uL RBC 4.10 L (4.20-5.50) X10*6/uL Hgb 11.2 L (12.0-16.0) g/dl Hct 35.2 L (37.0-47.0) % MCV 85.9 (80.0-98.0) fL MCH 27.3 (27.0-33.0) pg MCHC 31.8 (31.0-35.0) g/dl RDW 15.9 (11.0-16.0) % Plt Count 255 (160-400) X10*3/uL MPV 10.3 (9.4-12.3) fL Immature Gran % (Auto) 1.3 H (0.0-0.4) % Neut % (Auto) 58.7 (45-73) % Lymph % (Auto) 20.8 (20-40) % Anderson % (Auto) 6.9 (2-11) % Eos % (Auto) 11.4 H (0-4) % Baso % (Auto) 0.9 (0-2) % Lymph # (Auto) 2.2 (1.2-4.9) X10*3/uL Anderson # (Auto) 0.7 (0.1-1.2) X10*3/uL Eos # (Auto) 1.2 H (0.0-0.4) X10*3/uL Baso # (Auto) 0.1 (0.0-0.2) X10*3/uL Abs Immat Gran (auto) 0.14 H (0.00-0.03) X10*3/uL Absolute Neuts (auto) 6.3 (2.0-8.3) x10*3/uL Absolute Nucleated RBC 0.000 (0.0-0.012) X10*3/uL Nucleated RBC % (auto) 0.0 (0.0-0.2) /100WBC Sodium 136 (135-145) mmol/L Potassium 4.3 (3.3-5.1) mmol/L Chloride 103 (96-108) mmol/L Carbon Dioxide 21 L (22-29) mmol/L Anion Gap 16 (12-20) BUN 21 H (9-16) mg/dL Creatinine 1.26 (0.5-1.4) mg/dL Estim Creat Clear Calc 33.6 Estimated GFR 42 Random Glucose 340 H (60-115) mg/dL Calcium 9.2 (8.4-10.2) mg/dL Total Bilirubin 0.3 (0.0-1.0) mg/dL Direct Bilirubin < 0.2 (0.0-0.5) mg/dL AST 22 (5-31) U/L ALT 23 (0-31) U/L Alkaline Phosphatase 116 (39-117) U/L Troponin I High Sens 5.5 (<3.5-17.0) ng/L Total Protein 6.7 (6.5-8.0) g/dL Albumin 3.9 D (3.5-5.0) g/dL Lipase 21 (8-78) U/L 11/29/21 Range/Units 14:43 WBC (4.8-10.8) X10*3/uL RBC (4.20-5.50) X10*6/uL Hgb (12.0-16.0) g/dl Hct (37.0-47.0) % MCV (80.0-98.0) fL MCH (27.0-33.0) pg MCHC (31.0-35.0) g/dl RDW (11.0-16.0) % Plt Count (160-400) X10*3/uL MPV (9.4-12.3) fL Immature Gran % (Auto) (0.0-0.4) % Neut % (Auto) (45-73) % Lymph % (Auto) (20-40) % Anderson % (Auto) (2-11) % Eos % (Auto) (0-4) % Baso % (Auto) (0-2) % Lymph # (Auto) (1.2-4.9) X10*3/uL Anderson # (Auto) (0.1-1.2) X10*3/uL Eos # (Auto) (0.0-0.4) X10*3/uL Baso # (Auto) (0.0-0.2) X10*3/uL Abs Immat Gran (auto) (0.00-0.03) X10*3/uL Absolute Neuts (auto) (2.0-8.3) x10*3/uL Absolute Nucleated RBC (0.0-0.012) X10*3/uL Nucleated RBC % (auto) (0.0-0.2) /100WBC Sodium (135-145) mmol/L Potassium (3.3-5.1) mmol/L Chloride (96-108) mmol/L Carbon Dioxide (22-29) mmol/L Anion Gap (12-20) BUN (9-16) mg/dL Creatinine (0.5-1.4) mg/dL Estim Creat Clear Calc Estimated GFR Random Glucose (60-115) mg/dL Calcium (8.4-10.2) mg/dL Total Bilirubin (0.0-1.0) mg/dL Direct Bilirubin (0.0-0.5) mg/dL AST (5-31) U/L ALT (0-31) U/L Alkaline Phosphatase (39-117) U/L Troponin I High Sens 6.8 (<3.5-17.0) ng/L Total Protein (6.5-8.0) g/dL Albumin (3.5-5.0) g/dL Lipase (8-78) U/L Imaging Data Chest x-ray: Radiologist's impression: XR/XR chest 2V IMPRESSION: No acute finding. ECG Data ECG #1: Attestation: I personally reviewed and interpreted this ECG as follows: ECG interpretation date: 11/29/21 Prior ECG tracings: available for review Interpretation: Rate: 89 Rhythm:? Normal sinus rhythm Cropsey:? Normal P waves.? Normal NIKO.?? Normal QRS complex.?? ST T wave :??No ST elevation, ST depression, T-wave inversion qTC: 438 prior studies:? February 2021 The study has been interpreted contemporaneously by me. Discharge Plan Discharge Clinical Impression: Atypical chest pain Patient Disposition: Home, Self-Care Instructions: Chest Pain (ED), Noncardiac Chest Pain (ED) Additional Instructions: Your blood work chest x-ray and EKG were normal today. As we discussed, please contact your primary care provider and city controller to arrange for a follow-up visit within 3 days. Return to the emergency department with any new or significantly worsening symptoms or concerns; such as dizziness, lightheadedness, fevers, chills, shortness of breath, difficulty breathing, nausea with persistent vomiting, abdominal pain, weakness. Woodard an?lisis de ivy, la radiograf?a de t?rax y el electrocardiograma fueron normales hoy. [place] discutimos, comun?quese con woodard proveedor de atenci?n primaria y cardi?logo para programar skinny visita de seguimiento dentro de los 3 d?as. Regrese al departamento de emergencias con cualquier s?ntoma o inquietud nueva o que empeore significativamente; chel[place] mareos, aturdimiento, fiebre, escalofr?os, dificultad para respirar, n?useas con v?mitos persistentes, dolor abdominal, debilidad. Prescriptions: No Action (DME) insulin syringe-needle U-100 [BD Insulin Syringe Ultra-Fine] 0.3 mL 31 gauge x 5/16 syringe See Rx Instructions .ROUTE .MEDSUPPLY Qty: 100 0RF Rx Instructions: As directed 3 times per day (DME) Dexcom G6 Sensor Device See Rx Instructions .ROUTE .MEDSUPPLY Qty: 3 11RF Rx Instructions: Every 10 days (DME) blood-glucose meter [FreeStyle Lite Meter] Kit See Rx Instructions .ROUTE .MEDSUPPLY Qty: 1 0RF Rx Instructions: As directed (DME) FreeStyle Lite Strips Strip See Rx Instructions .ROUTE .MEDSUPPLY Qty: 200 11RF Rx Instructions: 8 times a day levothyroxine [Tirosint] 100 mcg capsule 100 mcg PO DAILY Qty: 30 11RF (DME) pen needle, diabetic [BD Cherelle 2nd Gen Pen Needle] 32 gauge x 5/32 needle See Rx Instructions .MEDSUPPLY Qty: 200 7RF Rx Instructions: 5 times a day clopidogrel 75 mg tablet 75 mg PO QAM Qty: 30 5RF calcium citrate 200 mg (950 mg) tablet 400 mg PO BID Qty: 120 4RF furosemide 20 mg tablet 20 mg PO QAM Qty: 90 3RF cholecalciferol (vitamin D3) 50 mcg (2,000 unit) capsule 50 mcg PO DAILY 30 Days Qty: 30 4RF carvedilol 6.25 mg tablet 6.25 mg PO BID Qty: 180 3RF folic acid 1 mg Tablet 1 mg PO DAILY Qty: 90 4RF sucralfate 1 gram tablet 1 tab PO BID clonazepam 0.5 mg tablet 1 tab PO Q8H PRN (Reason: anxiety) venlafaxine [Effexor XR] 150 mg capsule,extended release 24hr 150 mg PO DAILY atorvastatin 80 mg tablet 80 mg PO DAILY 30 Days Qty: 30 5RF (DME) blood sugar diagnostic Strip See Rx Instructions Not Applicable .MEDSUPPLY Qty: 10 Rx Instructions: As directed gabapentin 100 mg capsule 100 mg PO BID hydroxyzine HCl 10 mg tablet 10 mg PO Q8H PRN (Reason: Anxiety) diclofenac sodium 75 mg tablet,delayed release (DR/EC) 75 mg PO BID esomeprazole magnesium 40 mg capsule,delayed release(DR/EC) 40 mg PO DAILY Tresiba FlexTouch U-100 100 unit/mL (3 mL) insulin pen 15 unit subcut DAILY 90 Days Qty: 15 2RF Fiasp FlexTouch U-100 Insulin 100 unit/mL (3 mL) insulin pen 2 - 14 unit subcut QID 30 Days Qty: 15 6RF Baqsimi 3 mg/actuation spray,non-aerosol 3 mg intranasal ONCE 30 Days Qty: 2 6RF Rx Instructions: [place] once for severe hypoglycemia when patient cannot self-treat with glucose. Afterwards turn on side. May repeat after 15 minutes if patient does not respond. amlodipine 10 mg tablet 5 mg PO DAILY aripiprazole 15 mg tablet 20 mg PO DAILY albuterol sulfate [Ventolin HFA] 90 mcg/actuation HFA aerosol inhaler 2 puff PO Q4-6H PRN losartan 50 mg tablet 50 mg PO QAM prazosin 5 mg capsule 5 mg PO BEDTIME Trulance 3 mg tablet 3 mg PO DAILY Qty: 30 6RF Print Language: Mongolian
[2021-11-29 12:02] LABS: Troponin-I High Sensitivity 5.5 ng/L (<3.5-17.0)
[2021-11-29 12:46] LABS: Alanine Aminotransferase 23 U/L (0-31); Albumin Level 3.9 g/dL (3.5-5.0); Alkaline Phosphatase 116 U/L (39-117); Aspartate Amino Transferase 22 U/L (5-31); Bilirubin Direct < 0.2 mg/dL (0.0-0.5); Bilirubin Total 0.3 mg/dL (0.0-1.0); Lipase 21 U/L (8-78); Total Protein 6.7 g/dL (6.5-8.0)
--- NOTE | 2021-11-29 14:21 | PC.NURSE ---
ambulatory to BR w./o distress. c/o chest pressure. non reproducible. just placed on surveillance system monitor. nsr. skin pwd.
[2021-11-29 14:38] VITALS: BP 139/68; PULSE 91; RESP 20; TEMP 37.3; O2SAT 99
[2021-11-29 15:09] LABS: Troponin-I High Sensitivity 6.8 ng/L (<3.5-17.0)
[2021-11-29 16:02] VITALS: BP 160/71; PULSE 98; RESP 18; TEMP 36.8; O2SAT 99
--- NOTE | 2021-11-29 16:07 | PC.NURSE ---
OXYGEN FURNACE OPERATOR Biju notified about patients BP
== END 2021-11-29 16:32 | disposition home or self-care (01) ==
PROVIDERS: Nurse Practitioner Family; Emergency Provider Emergency Medicine; PCP Internal Medicine
DX: R07.89 Other chest pain (principal); E10.8 Type 1 diabetes mellitus with unspecified complications; E78.5 Hyperlipidemia, unspecified; I10 Essential (primary) hypertension; Z79.4 Long term (current) use of insulin; Z79.02 Long term (current) use of antithrombotics/antiplatelets
CPT/HCPCS: 36415; 71046; 80048; 80076; 83690; 84484; 85025; 93005; 99283; 99284

== ENCOUNTER → 2021-12-10 12:45 | Outpatient (BNVA) | payer OTHER, SELFPAY | PROVIDERS: PCP Internal Medicine; Referring Provider Internal Medicine; Visit Provider Internal Medicine | DX: I25.10 Atherosclerotic heart disease of native coronary artery without angina pectoris (principal); I10 Essential (primary) hypertension; E10.649 Type 1 diabetes mellitus with hypoglycemia without coma; E10.65 Type 1 diabetes mellitus with hyperglycemia; E78.49 Other hyperlipidemia; R00.2 Palpitations; Z98.84 Bariatric surgery status; Z79.899 Other long term (current) drug therapy; Z79.4 Long term (current) use of insulin | CPT/HCPCS: 99212 ==

== ENCOUNTER → 2021-12-14 10:13 | Outpatient (BNVA) | payer OTHER, SELFPAY | PROVIDERS: PCP Internal Medicine; Visit Provider Physician Assistant Surgical | DX: E66.3 Overweight (principal); Z68.29 Body mass index [BMI] 29.0-29.9, adult; Z98.84 Bariatric surgery status | CPT/HCPCS: 99212 ==

== ENCOUNTER 2021-12-19 10:08 | Outpatient (REF) | payer OTHER, SELFPAY ==
[2021-12-19 10:34] LABS: MANUAL DIFF FLAG NO
[2021-12-19 11:20] LABS: Basophils Absolute Auto 0.1 X10*3/uL (0.0-0.2); Eosinophils Absolute Auto 1.4 X10*3/uL (0.0-0.4); Eosinophils Percent Auto 13.2 % (0-4); Hematocrit 35.3 % (37.0-47.0); Imm Gran Abs Auto 0.09 X10*3/uL (0.00-0.03); Imm Gran Pct Auto 0.8 % (0.0-0.4); Lymphocytes Absolute Auto 2.6 X10*3/uL (1.2-4.9); Lymphocytes Percent Auto 23.6 % (20-40); Mean Corpuscular HGB Conc 31.2 g/dl (31.0-35.0); Mean Corpuscular Hemoglobin 27.4 pg (27.0-33.0); Mean Corpuscular Volume 87.8 fL (80.0-98.0); Mean Platelet Volume 10.8 fL (9.4-12.3); Monocytes Absolute Auto 0.7 X10*3/uL (0.1-1.2); Monocytes Percent Auto 6.1 % (2-11); Neutrophils Percent Auto 55.3 % (45-73); Platelet Count 259 X10*3/uL (160-400); Red Blood Count 4.02 X10*6/uL (4.20-5.50); Red Cell Distribution Width 14.7 % (11.0-16.0); White Blood Count 10.9 X10*3/uL (4.8-10.8)
[2021-12-19 11:27] LABS: Estimated Average Glucose 154 mg/dL
[2021-12-19 12:29] LABS: Ferritin 417 ng/mL (10-250); Insulin 75 uU/mL (2-29); TSH reflex Free T4 2.13 uIU/mL (0.32-4.0); Vitamin D 25-OH Total 40.9 ng/mL (>30)
[2021-12-19 12:49] LABS: Folate > 20.0 ng/mL (> or = 4.0); Vitamin B12 783 pg/mL (200-900)
[2021-12-19 12:53] LABS: Alanine Aminotransferase 22 U/L (0-31); Albumin Level 3.7 g/dL (3.5-5.0); Alkaline Phosphatase 118 U/L (39-117); Anion Gap 16 (12-20); Aspartate Amino Transferase 19 U/L (5-31); Bilirubin Total 0.4 mg/dL (0.0-1.0); Blood Urea Nitrogen 24 mg/dL (9-16); C Reactive Protein 0.57 mg/dL (< or = 0.50); Calcium 9.1 mg/dL (8.4-10.2); Carbon Dioxide 27 mmol/L (22-29); Chloride 100 mmol/L (96-108); Cholesterol 178 mg/dL; Estimated Glomerular Filt Rate 47; HDL Cholesterol 48 mg/dL; Iron 85 mcg/dL (30-160); LDL Cholesterol Calculated 99 mg/dl; Percent Iron Saturation 39 % (15-50); Potassium 4.9 mmol/L (3.3-5.1); Sodium 138 mmol/L (135-145); Total Iron Binding Capacity 216 mcg/dL (228-428); Total Protein 6.3 g/dL (6.5-8.0); Triglycerides 159 mg/dL; Unsaturated Iron Binding 131 ug/dL
[2021-12-19 13:58] LABS: Glucose Random 350 mg/dL (60-115)
[2021-12-20 12:26] LABS: Calcium (PTHI) 9.3 mg/dL (8.6-10.4); PTHI 72 pg/mL (16-77)
[2021-12-22 15:21] LABS: Zinc 63 mcg/dL (60-130)
[2021-12-24 13:37] LABS: Vitamin B1 19 nmol/L (8-30)
[2021-12-26 17:32] LABS: Vitamin A 88 mcg/dL (38-98)
== END 2021-12-19 10:09 | disposition home or self-care (01) ==
LOC: HO.LAB 10:08
PROVIDERS: PCP Internal Medicine; Visit Provider Physician Assistant Surgical
DX: Z98.84 Bariatric surgery status (principal)
CPT/HCPCS: 36415; 80053; 80061; 82306; 82607; 82728; 82746; 83036; 83525; 83540; 83970; 84425; 84443; 84590; 84630; 85025; 86140

== ENCOUNTER → 2022-01-08 11:12 | Outpatient (BNVA) | payer OTHER, SELFPAY | PROVIDERS: PCP Internal Medicine; Referring Provider Internal Medicine; Visit Provider Nurse Practitioner | DX: K59.04 Chronic idiopathic constipation (principal); R79.89 Other specified abnormal findings of blood chemistry | CPT/HCPCS: 99212 ==

== ENCOUNTER → 2022-01-11 09:56 | Outpatient (BNVA) | payer OTHER, SELFPAY | PROVIDERS: PCP Internal Medicine; Visit Provider Internal Medicine Endocrinology, Diabetes & Metabolism | DX: E10.649 Type 1 diabetes mellitus with hypoglycemia without coma (principal) | CPT/HCPCS: 82947; 99212 ==

== ENCOUNTER → 2022-01-23 10:44 | Outpatient (REF) | payer OTHER, SELFPAY ==
--- NOTE | 2022-01-23 10:47 | HM_ITS ---
* Total monitoring time 5 days and 4 hours. * Underlying rhythm is sinus. Average ventricular rate 77/Min. Range 55 to 118/Min. * Very rare supraventricular and ventricular ectopy with minimal burden. * No significant pauses or AV blocks. * No diary. MTDD
== END ==
LOC: HO.CARD 10:44
PROVIDERS: Visit Provider Internal Medicine
DX: R00.2 Palpitations (principal)
CPT/HCPCS: 93242

== ENCOUNTER → 2022-02-06 10:46 | Outpatient (BNVA) | payer OTHER, SELFPAY | PROVIDERS: PCP Internal Medicine; Visit Provider Nurse Practitioner | DX: K59.04 Chronic idiopathic constipation (principal); R79.89 Other specified abnormal findings of blood chemistry | CPT/HCPCS: 99212 ==

== ENCOUNTER → 2022-03-12 10:44 | Outpatient (BNVA) | payer OTHER, SELFPAY | PROVIDERS: PCP Internal Medicine; Visit Provider Registered Nurse Diabetes Educator | DX: E10.649 Type 1 diabetes mellitus with hypoglycemia without coma (principal); Z79.4 Long term (current) use of insulin | CPT/HCPCS: 99211 ==

== ENCOUNTER 2022-03-19 10:30 | Outpatient (REF) | payer OTHER, SELFPAY ==
--- NOTE | ~2022-03-19 | US_ITS ---
EXAMINATION: US ABDOMEN LIMITED CLINICAL INFORMATION: Other specified abnormal findings of blood chemistry. COMPARISON: Ultrasound abdomen complete 09/05/2021 and 01/01/2021. CT abdomen and pelvis 03/19/2021. X-ray abdomen KUB 01/23/2017. TECHNIQUE: Real-time imaging of the right upper quadrant abdominal viscera. FINDINGS: PANCREAS: The pancreas is obscured by gas. LIVER: Normal. The liver is normal in size. The liver contour is normal. Parenchymal echogenicity is normal. No focal hepatic lesion. There is no intrahepatic biliary duct dilatation seen. GALLBLADDER: Surgically absent. COMMON BILE DUCT: Normal in caliber measuring 0.4 cm in diameter. RIGHT KIDNEY: Normal. No hydronephrosis. No renal calculi or focal parenchymal lesions. The kidney measures 8.7 cm in maximum dimension. FREE FLUID: None. US/US abdomen limited IMPRESSION: Unremarkable limited abdomen ultrasound. No major change compared to previous study 09/05/2021 Previously seen right pleural effusion is not visualized on the present exam.
== END 2022-03-19 10:31 | disposition home or self-care (01) ==
LOC: HO.US 10:30
PROVIDERS: Visit Provider Nurse Practitioner
DX: R79.89 Other specified abnormal findings of blood chemistry (principal)
CPT/HCPCS: 76705

== ENCOUNTER → 2022-05-14 09:45 | Outpatient (BNVA) | payer OTHER, SELFPAY | PROVIDERS: PCP Internal Medicine; Visit Provider Internal Medicine Endocrinology, Diabetes & Metabolism | DX: E10.649 Type 1 diabetes mellitus with hypoglycemia without coma (principal) | CPT/HCPCS: 82947; 83036; 99212 ==

== ENCOUNTER 2022-05-23 10:42 | Outpatient (REF) | payer OTHER, SELFPAY ==
--- NOTE | ~2022-05-23 | MM_ITS ---
EXAMINATION: MM SCREENING DIGITAL BREAST TOMOSYNTHESIS, BILATERAL CLINICAL INFORMATION: Screening. Asymptomatic. The lifetime risk of breast cancer based on the Tyrer-Cuzick Model is 4%. COMPARISON: Mammography: May 16, 2021 and studies dating back to May 29, 2015 TECHNIQUE: Digital breast tomosynthesis is performed in both the craniocaudal and mediolateral oblique views along with computer-aided detection (CAD). Synthesized 2D images are generated from the tomosynthesis. Additional right exaggerated craniocaudal view performed. FINDINGS: The breasts are extremely dense, which lowers the sensitivity of mammography (ACR BI-RADS breast composition Category d). There are no significant masses, abnormal calcifications, or other abnormalities. MM/MM tomosynthesis screening BI IMPRESSION: No significant changes from prior exam. ASSESSMENT: BI-RADS 1: Negative RECOMMENDATION: Routine annual mammography screening. This patient's information was entered into a reminder system with a target due date for their next mammogram.
== END 2022-05-23 10:43 | disposition home or self-care (01) ==
LOC: HO.MAMMO 10:42
PROVIDERS: PCP Internal Medicine; Visit Provider Internal Medicine
DX: Z12.31 Encounter for screening mammogram for malignant neoplasm of breast (principal)
CPT/HCPCS: 77063; 77067

== ENCOUNTER → 2022-08-07 09:46 | Outpatient (BNVA) | payer OTHER, SELFPAY | PROVIDERS: PCP Internal Medicine; Visit Provider Nurse Practitioner | DX: K59.04 Chronic idiopathic constipation (principal); R79.89 Other specified abnormal findings of blood chemistry; E10.649 Type 1 diabetes mellitus with hypoglycemia without coma; E10.65 Type 1 diabetes mellitus with hyperglycemia; Z90.49 Acquired absence of other specified parts of digestive tract; Z98.84 Bariatric surgery status | CPT/HCPCS: 99212 ==

== ENCOUNTER → 2022-09-04 10:03 | Outpatient (BNVA) | payer OTHER, SELFPAY | PROVIDERS: PCP Internal Medicine; Referring Provider Internal Medicine; Visit Provider Internal Medicine | DX: I25.10 Atherosclerotic heart disease of native coronary artery without angina pectoris (principal); I10 Essential (primary) hypertension; E10.649 Type 1 diabetes mellitus with hypoglycemia without coma; E78.49 Other hyperlipidemia; Z98.84 Bariatric surgery status | CPT/HCPCS: 99212 ==

== ENCOUNTER → 2022-09-11 10:22 | Outpatient (BNVA) | payer OTHER, SELFPAY | PROVIDERS: PCP Internal Medicine; Visit Provider Internal Medicine Endocrinology, Diabetes & Metabolism | DX: E10.649 Type 1 diabetes mellitus with hypoglycemia without coma (principal); I25.10 Atherosclerotic heart disease of native coronary artery without angina pectoris; I10 Essential (primary) hypertension; E03.9 Hypothyroidism, unspecified; E06.3 Autoimmune thyroiditis | CPT/HCPCS: 82947; 83036; 99212 ==

== ENCOUNTER 2022-10-08 10:18 | Outpatient (REF) | payer OTHER, SELFPAY ==
[2022-10-08 12:25] LABS: Erythrocyte Sedimentation Rate 20 MM/HR (0-20)
[2022-10-08 12:34] LABS: Alanine Aminotransferase 24 U/L (0-31); Albumin Level 3.9 g/dL (3.5-5.0); Alkaline Phosphatase 116 U/L (39-117); Aspartate Amino Transferase 29 U/L (5-31); Bilirubin Direct 0.1 mg/dL (0.0-0.5); Bilirubin Total 0.3 mg/dL (0.0-1.0); Rheumatoid Factor 15.3 IU/mL (<15.0); Total Protein 7.1 g/dL (6.5-8.0)
[2022-10-10 14:08] LABS: Cyclic Citrullinated Peptide <16 UNITS
[2022-10-10 17:53] LABS: CRP High Sensitivity >10.0 mg/L
[2022-10-11 12:28] LABS: Alpha Fetoprotein 4.1 ng/mL
== END 2022-10-08 10:19 | disposition home or self-care (01) ==
LOC: HO.LAB 10:18
PROVIDERS: PCP Internal Medicine; Visit Provider Nurse Practitioner
DX: K59.04 Chronic idiopathic constipation (principal); K21.9 Gastro-esophageal reflux disease without esophagitis; K29.50 Unspecified chronic gastritis without bleeding; M25.40 Effusion, unspecified joint; R79.89 Other specified abnormal findings of blood chemistry
CPT/HCPCS: 36415; 80076; 82105; 84550; 85652; 86141; 86200; 86431; 99212

== ENCOUNTER 2022-10-29 10:49 | Outpatient (AMB) | payer OTHER, SELFPAY ==
--- NOTE | 2022-10-29 11:24 | MHC.AMDMED ---
Intake Intake Visit Reasons: f/u Type 1 DM Sanitation Lead Required: Yes Sanitation Lead Language: Payroll Accounting Specialist Name: Sethcom Accompanied by: Self / Same As Patient Allergies lorazepam [LORAZEPAM] Allergy (Severe, Verified 10/08/22 10:26) DELIRIUM celecoxib [From Celebrex] Allergy (Intermediate, Verified 10/08/22 10:26) ITCHING tramadol [TRAMADOL] Allergy (Intermediate, Verified 10/08/22 10:26) ITCHING zolpidem [Ambien] Allergy (Unknown, Verified 10/08/22 10:26) unknown HPI Comprehensive Diabetes Asmnt Most Recent Diabetes Results: Creatinine 1.17 mg/dL (0.5-1.4) 09/27/22 Blood Urea Nitrogen 24 mg/dL (9-16) H 09/27/22 Sodium 139 mmol/L (135-145) 09/27/22 Potassium 4.3 mmol/L (3.3-5.1) 09/27/22 Chloride 105 mmol/L (96-108) 09/27/22 Carbon Dioxide 24 mmol/L (22-29) 09/27/22 Calcium 9.6 mg/dL (8.4-10.2) 09/27/22 AST 29 U/L (5-31) 10/08/22 ALT 24 U/L (0-31) 10/08/22 Total Protein 7.1 g/dL (6.5-8.0) 10/08/22 Albumin 3.9 g/dL (3.5-5.0) 10/08/22 PFSH Medical History Anxiety Atherosclerotic cardiovascular disease Cholecystitis Depression Diabetes type 1, uncontrolled Dyslipidemia Elevated liver function tests Essential hypertension Fibromyalgia Folliculitis Rona's disease History of myocardial infarction Hyperlipidemia, unspecified Hyperparathyroidism due to vitamin D deficiency Hypertension 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 Hypothyroidism Intestinal malabsorption following gastrectomy NSTEMI (non-ST elevated myocardial infarction) Obesity (BMI 30-39.9) Surgical History H/O colonoscopy H/O gastric bypass History of bladder suspension procedure History of esophagogastroduodenoscopy (EGD) History of laparoscopic cholecystectomy Hx of appendectomy Status post laser cataract surgery of both eyes Family History Father No problems noted. Mother CVA (cerebral vascular accident) Sister Hypertension Brother Hypertension Liver cancer Social History Household Members: None and Unknown / Unable to assess Housing: Apartment Are you a primary career development coordinator/teacher to a significant other at home: No Do you presently have visiting nurse or other home services: No Unable to assess alcohol history related to: Unable to respond Alcohol intake: never Patient Tobacco Use Status: Never used Tobacco service: No Current occupational status: disabled Assessment & Plan Assessment & Plan (1) 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: Code(s): E10.649 - Type 1 diabetes mellitus with hypoglycemia without coma Plan: Personal Continuous Glucose Monitor: Patient has been referred to CDE for Dexcom download Patients CGM information reviewed in Dexcom Clarity Reviewed patient's sensor data: Hypoglycemia: 4% Hyperglycemia: 72% Time in Range: 24% Average glucose for the last 2 weeks:238 mg/dL Coefficient variation: 40% Patient's glucose?levels running well above target 82.8% the time.? Patient denies missing insulin doses. Patient does report taking mealtime insulin prior to meals Tresiba 26 units Fiasp 13 units before meals, patient is not using correction scale Patient reports that the last 24 hours of her sensor show that her glucose level is in the hypoglycemic range but when she uses glucose meter to check glucose levels are normal. Patient's SUPERVISOR NUTRITIONAL YEAST was not at today's visit, instructed patient on how to calibrate sensor with reading from glucometer. Patient return in 1 month with SUPERVISOR NUTRITIONAL YEAST, so we can show SUPERVISOR NUTRITIONAL YEAST how to calibrate Dexcom fabric normalizer as well Patient reports eating large portion for a some beans with meals, recommended to patient to keep race in being portion to 1 measuring combined Reviewed with patient how to use rule of 15s to treat hypoglycemia Patient Instructions: Patient will return in 1 month Coding Level of Care Code Tele Est Pt Level 1 (42226) Diagnoses 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 E10.649
== END 2022-10-29 11:27 | disposition home or self-care (01) ==
PROVIDERS: PCP Internal Medicine; Visit Provider Registered Nurse Diabetes Educator
DX: E10.649 Type 1 diabetes mellitus with hypoglycemia without coma (principal)
CPT/HCPCS: 99211

== ENCOUNTER → 2022-10-29 10:49 | Outpatient (BNVA) | payer OTHER, SELFPAY | PROVIDERS: Visit Provider Registered Nurse Diabetes Educator | DX: E10.649 Type 1 diabetes mellitus with hypoglycemia without coma (principal) | CPT/HCPCS: Q3014 ==

== ENCOUNTER 2022-11-29 10:50 | Outpatient (AMB) | payer OTHER, SELFPAY ==
--- NOTE | 2022-11-29 11:22 | MHC.AMDMED ---
Intake Intake Visit Reasons: DM Bead Flipper Required: Yes Bead Flipper Language: District Director Name: [facility] [place] interpreter Information Interpreted: non-clinical & clinical Accompanied by: Other Relationship Allergies lorazepam [LORAZEPAM] Allergy (Severe, Verified 10/08/22 10:26) DELIRIUM celecoxib [From Celebrex] Allergy (Intermediate, Verified 10/08/22 10:26) ITCHING tramadol [TRAMADOL] Allergy (Intermediate, Verified 10/08/22 10:26) ITCHING zolpidem [Ambien] Allergy (Unknown, Verified 10/08/22 10:26) unknown HPI Comprehensive Diabetes Asmnt Most Recent Diabetes Results: Creatinine 1.17 mg/dL (0.5-1.4) 09/27/22 Blood Urea Nitrogen 24 mg/dL (9-16) H 09/27/22 Sodium 139 mmol/L (135-145) 09/27/22 Potassium 4.3 mmol/L (3.3-5.1) 09/27/22 Chloride 105 mmol/L (96-108) 09/27/22 Carbon Dioxide 24 mmol/L (22-29) 09/27/22 Calcium 9.6 mg/dL (8.4-10.2) 09/27/22 AST 29 U/L (5-31) 10/08/22 ALT 24 U/L (0-31) 10/08/22 Total Protein 7.1 g/dL (6.5-8.0) 10/08/22 Albumin 3.9 g/dL (3.5-5.0) 10/08/22 PFSH Medical History Anxiety Atherosclerotic cardiovascular disease Cholecystitis Depression Diabetes type 1, uncontrolled Dyslipidemia Elevated liver function tests Essential hypertension Fibromyalgia Folliculitis Rona's disease History of myocardial infarction Hyperlipidemia, unspecified Hyperparathyroidism due to vitamin D deficiency Hypertension 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 Hypothyroidism Intestinal malabsorption following gastrectomy NSTEMI (non-ST elevated myocardial infarction) Obesity (BMI 30-39.9) Surgical History H/O colonoscopy H/O gastric bypass History of bladder suspension procedure History of esophagogastroduodenoscopy (EGD) History of laparoscopic cholecystectomy Hx of appendectomy Status post laser cataract surgery of both eyes Family History Father No problems noted. Mother CVA (cerebral vascular accident) Sister Hypertension Brother Hypertension Liver cancer Social History Household Members: None and Unknown / Unable to assess Housing: Apartment Are you a primary director critical care to a significant other at home: No Do you presently have visiting nurse or other home services: No Unable to assess alcohol history related to: Unable to respond Alcohol intake: never Patient Tobacco Use Status: Never used Tobacco service: No Current occupational status: disabled Assessment & Plan Assessment & Plan (1) 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: Code(s): E10.649 - Type 1 diabetes mellitus with hypoglycemia without coma Plan: Personal Continuous Glucose Monitor: Patients CGM information reviewed Reviewed patient's sensor data: Hypoglycemia: ?20% (patient reports having bad sensor on for 7 days, in that time sensor repeatedly gave hypoglycemic alerts however when checked against meter glucose levels on meter were elevated or above target.) Hyperglycemia:? 50% Time in Range:?30% Average glucose for the last 2 weeks?190 mg/dL Patient at visit with her LAUNDRY SUPERVISOR Veda, reviewed with patient and LAUNDRY SUPERVISOR how to calibrate Dexcom G6 sensor with glucometer. LAUNDRY SUPERVISOR mentioned that she was instructed to always put 200 mg/dL in the calibration, this could explain some of the discrepancies between patient's glucose meter and sensor readings. Instructed LAUNDRY SUPERVISOR and patient to only calibrate sensor if glucose readings are more than 30 mg/dL apart Reviewed how to interpret trend arrows Reminded patient that to check finger sticks if symptoms do not match sensor reading. Discussed lag time between finger stick and sensor data.? Patient Instructions: Follow-up with certified lactation educator in 1 month Coding Level of Care Code Est Pt Level 1 (60605) Diagnoses 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 E10.649
== END 2022-11-29 15:18 | disposition home or self-care (01) ==
PROVIDERS: PCP Internal Medicine; Visit Provider Registered Nurse Diabetes Educator
DX: E10.649 Type 1 diabetes mellitus with hypoglycemia without coma (principal)

== ENCOUNTER → 2022-11-29 10:50 | Outpatient (BNVA) | payer OTHER, SELFPAY | PROVIDERS: PCP Internal Medicine; Visit Provider Registered Nurse Diabetes Educator | DX: E10.649 Type 1 diabetes mellitus with hypoglycemia without coma (principal); E10.65 Type 1 diabetes mellitus with hyperglycemia; K90.49 Malabsorption due to intolerance, not elsewhere classified; Z90.3 Acquired absence of stomach [part of] | CPT/HCPCS: 99211 ==

== ENCOUNTER 2022-12-30 17:46 | Outpatient (REF) | payer OTHER, SELFPAY | END 2022-12-30 17:47 | disposition home or self-care (01) | LOC: HO.HHCLNP 17:46 | PROVIDERS: Visit Provider Emergency Medicine | DX: S31.40XA Unspecified open wound of vagina and vulva, initial encounter (principal); X58.XXXA Exposure to other specified factors, initial encounter; Y93.9 Activity, unspecified; Y92.9 Unspecified place or not applicable; Y99.9 Unspecified external cause status | CPT/HCPCS: 36415; 87070; 87205; 87255 ==

== ENCOUNTER 2022-12-31 10:40 | Outpatient (AMB) | payer OTHER, SELFPAY ==
--- NOTE | 2022-12-31 11:13 | A.OFFVIS_ITS ---
Intake Intake Visit Reasons: DM Peer Financial Counselor Required: Yes Peer Financial Counselor Language: Water Valve Mechanic Name: Yolanda [id number] Allergies lorazepam [LORAZEPAM] Allergy (Severe, Verified 10/08/22 10:26) DELIRIUM celecoxib [From Celebrex] Allergy (Intermediate, Verified 10/08/22 10:26) ITCHING tramadol [TRAMADOL] Allergy (Intermediate, Verified 10/08/22 10:26) ITCHING zolpidem [Ambien] Allergy (Unknown, Verified 10/08/22 10:26) unknown HPI Comprehensive Diabetes Asmnt Most Recent Diabetes Results: Creatinine 1.17 mg/dL (0.5-1.4) 09/27/22 Blood Urea Nitrogen 24 mg/dL (9-16) H 09/27/22 Sodium 139 mmol/L (135-145) 09/27/22 Potassium 4.3 mmol/L (3.3-5.1) 09/27/22 Chloride 105 mmol/L (96-108) 09/27/22 Carbon Dioxide 24 mmol/L (22-29) 09/27/22 Calcium 9.6 mg/dL (8.4-10.2) 09/27/22 AST 29 U/L (5-31) 10/08/22 ALT 24 U/L (0-31) 10/08/22 Total Protein 7.1 g/dL (6.5-8.0) 10/08/22 Albumin 3.9 g/dL (3.5-5.0) 10/08/22 PFSH Medical History Anxiety Atherosclerotic cardiovascular disease Cholecystitis Depression Diabetes type 1, uncontrolled Dyslipidemia Elevated liver function tests Essential hypertension Fibromyalgia Folliculitis Rona's disease History of myocardial infarction Hyperlipidemia, unspecified Hyperparathyroidism due to vitamin D deficiency Hypertension 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 Hypothyroidism Intestinal malabsorption following gastrectomy NSTEMI (non-ST elevated myocardial infarction) Obesity (BMI 30-39.9) Surgical History H/O colonoscopy H/O gastric bypass History of bladder suspension procedure History of esophagogastroduodenoscopy (EGD) History of laparoscopic cholecystectomy Hx of appendectomy Status post laser cataract surgery of both eyes Family History Father No problems noted. Mother CVA (cerebral vascular accident) Sister Hypertension Brother Hypertension Liver cancer Social History Household Members: None and Unknown / Unable to assess Housing: Apartment Are you a primary career center advisor to a significant other at home: No Do you presently have visiting nurse or other home services: No Unable to assess alcohol history related to: Unable to respond Alcohol intake: never Patient Tobacco Use Status: Never used Tobacco service: No Current occupational status: disabled Assessment & Plan Assessment & Plan (1) 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: Code(s): E10.649 - Type 1 diabetes mellitus with hypoglycemia without coma Plan: Personal Continuous Glucose Monitor: Patients CGM information reviewed Reviewed patient's sensor data: Hypoglycemia: 10% Hyperglycemia:? 59% Time in Range:? 31% Average glucose for the last 2 weeks? 209 mg/dL Patient reports taking Tresiba 30 units, even though recommendation for Tresiba at last visit was 18 units In addition patient reports she has lost a copy of her Fiasp scale It appears her Dexcom G6 sensor and occupational safety specialist her having difficulty with connectivity Patient given copy of new insulin plan, instructed patient to reduce Tresiba from 30 units daily to 18 units daily New mealtime dose of Fiasp 10 units instead of 13 units recommend Patient given sample of Dexcom G7 sensor to wear on her arm along with occupational safety specialist to see if connectivity improves Patient will follow-up with Diabetes Education nurse in 2 weeks Reviewed how to interpret trend arrows Reminded patient that to check finger sticks if symptoms do not match sensor reading. Discussed lag time between finger stick and sensor data.? Patient's DEVICE SALES CONSULTANT able to insert sensor independently at home without issue.? Patient Instructions: Medicamentos para la diabetes: Tresiba 18 unidades Fiasp 10 unidades antes del desayuno cada comida y unidades antes de los batidos de prote?renay solamente Escala de correcci?n Fiasp: 200-250 mg por dL 2 unidades 251-300 mg/dL 3 unidades 301-350 mg/dL 4 unidades 351-400 mg por dL 5 unidades M?s de 400 mg por dL 6 unidades. Coding Level of Care Code Est Pt Level 1 (46126) Diagnoses 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 E10.649
== END 2022-12-31 11:36 | disposition home or self-care (01) ==
PROVIDERS: PCP Internal Medicine; Visit Provider Registered Nurse Diabetes Educator
DX: E10.649 Type 1 diabetes mellitus with hypoglycemia without coma (principal)

== ENCOUNTER → 2022-12-31 10:40 | Outpatient (BNVA) | payer OTHER, SELFPAY | PROVIDERS: PCP Internal Medicine; Visit Provider Registered Nurse Diabetes Educator | DX: E10.649 Type 1 diabetes mellitus with hypoglycemia without coma (principal) | CPT/HCPCS: 99211 ==

== ENCOUNTER 2023-01-10 10:36 | Outpatient (REF) | payer OTHER, SELFPAY ==
--- NOTE | ~2023-01-10 | XR_ITS ---
EXAMINATION: XR HAND, BILATERAL XR ANKLE, BILATERAL XR FOOT, BILATERAL CLINICAL INFORMATION: Rheumatoid arthritis. COMPARISON: None available. TECHNIQUE: 4 views of each hand including navicular view of the wrist. 3 views of each foot. 2 views of each ankle. FINDINGS: RIGHT HAND: There is chondrocalcinosis noted at the ulnocarpal articulation. Metacarpophalangeal Joints: Possible joint space narrowing of the 2nd and 3rd metacarpophalangeal joints. This could be artifactual given the degree of flexion at these joints. Remaining joints are unremarkable. No erosions. Interphalangeal Joints: Unremarkable. LEFT HAND: Chondrocalcinosis at the ulnocarpal articulation. First Carpometacarpal Joint: Small subchondral cysts and marginal osteophytes indicative of mild arthrosis. Metacarpophalangeal joints: Unremarkable. Interphalangeal joints: Unremarkable. No marginal erosions. RIGHT ANKLE AND FOOT: Arterial calcification noted. Moderate-sized plantar calcaneal spur. First Metatarsophalangeal Joint: Small marginal osteophyte without joint space narrowing indicative of mild arthrosis. Interphalangeal Joints: Unremarkable. LEFT ANKLE AND FOOT: Arterial calcification. Moderate-sized plantar calcaneal spur. First Metatarsophalangeal Joint: There is mild hallux valgus with uncovering of the medial third of the head of the 1st metatarsal. There are small marginal osteophytes and subchondral cystic change. Cystic change also noted along the medial aspect of the head of the 1st metatarsal with some overlying soft tissue prominence and overlying calcification. Overall mild arthrosis. Remaining Metatarsophalangeal Joints: Normal. Interphalangeal Joints: There is prominent flexion at the PIP joints. Bone and joints otherwise unremarkable. XR/XR ankle LT min 3V IMPRESSION: No specific radiographic signs for inflammatory arthropathy. RIGHT HAND: Chondrocalcinosis. Possible nonspecific joint space narrowing of the 2nd and 3rd metacarpophalangeal joints, although this may be artifactual related to the flexion at these joints making assessment of joint space limited. LEFT HAND: Chondrocalcinosis. Mild osteoarthritis of the 1st carpometacarpal joint. RIGHT ANKLE AND FOOT: Mild osteoarthritis of the 1st metatarsophalangeal joint. Calcaneal spur. LEFT ANKLE AND FOOT: Hallux valgus: Mild osteoarthritis of the 1st metatarsophalangeal joint. Calcaneal spur.
--- NOTE | ~2023-01-10 | XR_ITS ---
EXAMINATION: BILATERAL KNEE SERIES CLINICAL INFORMATION: Rheumatoid arthritis. COMPARISON: X-rays of the right knee February 2021. MRI of the left knee December 2006. TECHNIQUE: 4 views of each knee. FINDINGS: RIGHT KNEE: Medial compartment: There is chondrocalcinosis. Otherwise unremarkable. Lateral compartment: Chondrocalcinosis. Otherwise unremarkable. Patellofemoral compartment: Unremarkable. No effusion. Arterial calcification. No change compared with February 2021. No marginal erosions. Chondrocalcinosis. Mediolateral and patellofemoral compartments are otherwise unremarkable. No effusion. No marginal erosions. LEFT KNEE: Lateral compartment: No specific signs for inflammatory arthropathy. XR/XR knee LT 4V IMPRESSION: LEFT KNEE: No specific signs for inflammatory arthropathy. No marginal erosions. RIGHT KNEE: Chondrocalcinosis. Otherwise unremarkable. LEFT KNEE: Chondrocalcinosis. Otherwise unremarkable.
--- NOTE | ~2023-01-10 | XR_ITS ---
EXAMINATION: BILATERAL SHOULDER SERIES CLINICAL INFORMATION: Rheumatoid arthritis. COMPARISON: None available. TECHNIQUE: 4 views of each shoulder. FINDINGS: RIGHT SHOULDER: There is generalized joint space narrowing. Small marginal osteophyte along the inferior aspect of the humeral head. Overall mild to moderate arthrosis. No marginal erosions. Acromioclavicular joint, unremarkable. LEFT SHOULDER: Chondrocalcinosis. Glenohumeral joint otherwise normal. Acromioclavicular joint normal. Surrounding bone and soft tissues, unremarkable. Incidental note made of surgical clips overlying the upper abdomen. No marginal erosions XR/XR shoulder RT min 2V IMPRESSION: No radiographic signs specific for inflammatory arthropathy. No marginal erosions. RIGHT SHOULDER: Overall mild osteoarthritis of the glenohumeral joint. LEFT SHOULDER: Chondrocalcinosis.
--- NOTE | ~2023-01-10 | XR_ITS ---
EXAMINATION: BILATERAL KNEE SERIES CLINICAL INFORMATION: Rheumatoid arthritis. COMPARISON: X-rays of the right knee February 2021. MRI of the left knee December 2006. TECHNIQUE: 4 views of each knee. FINDINGS: RIGHT KNEE: Medial compartment: There is chondrocalcinosis. Otherwise unremarkable. Lateral compartment: Chondrocalcinosis. Otherwise unremarkable. Patellofemoral compartment: Unremarkable. No effusion. Arterial calcification. No change compared with February 2021. No marginal erosions. Chondrocalcinosis. Mediolateral and patellofemoral compartments are otherwise unremarkable. No effusion. No marginal erosions. LEFT KNEE: Lateral compartment: No specific signs for inflammatory arthropathy. XR/XR knee RT 4V IMPRESSION: LEFT KNEE: No specific signs for inflammatory arthropathy. No marginal erosions. RIGHT KNEE: Chondrocalcinosis. Otherwise unremarkable. LEFT KNEE: Chondrocalcinosis. Otherwise unremarkable.
--- NOTE | ~2023-01-10 | XR_ITS ---
EXAMINATION: XR LUMBOSACRAL SPINE WITH OBLIQUES CLINICAL INFORMATION: Rheumatoid arthritis. COMPARISON: X-ray lumbosacral spine November 2019. TECHNIQUE: AP, both oblique, and lateral views of the lumbar spine. Lateral view of the lumbosacral junction. FINDINGS: There is a transitional lumbosacral junction with what appears to be partial lumbarization of S1. Vertebral bodies are normally aligned with normal height. Disc spaces are normal. Mild arthrosis of the L4-L5 facets bilaterally manifested by joint space narrowing. This is unchanged. Partially visualized pelvis is unremarkable. Surgical clips in the upper abdomen XR/XR lumbar spine 4V min IMPRESSION: Mild spondylosis of the lumbosacral spine, unchanged.
--- NOTE | ~2023-01-10 | XR_ITS ---
EXAMINATION: BILATERAL SHOULDER SERIES CLINICAL INFORMATION: Rheumatoid arthritis. COMPARISON: None available. TECHNIQUE: 4 views of each shoulder. FINDINGS: RIGHT SHOULDER: There is generalized joint space narrowing. Small marginal osteophyte along the inferior aspect of the humeral head. Overall mild to moderate arthrosis. No marginal erosions. Acromioclavicular joint, unremarkable. LEFT SHOULDER: Chondrocalcinosis. Glenohumeral joint otherwise normal. Acromioclavicular joint normal. Surrounding bone and soft tissues, unremarkable. Incidental note made of surgical clips overlying the upper abdomen. No marginal erosions XR/XR shoulder LT min 2V IMPRESSION: No radiographic signs specific for inflammatory arthropathy. No marginal erosions. RIGHT SHOULDER: Overall mild osteoarthritis of the glenohumeral joint. LEFT SHOULDER: Chondrocalcinosis.
[2023-01-10 12:13] LABS: MANUAL DIFF FLAG NO
[2023-01-10 13:28] LABS: Basophils Absolute Auto 0.1 X10*3/uL (0.0-0.2); Eosinophils Absolute Auto 1.4 X10*3/uL (0.0-0.4); Eosinophils Percent Auto 10.3 % (0-4); Hematocrit 36.8 % (37.0-47.0); Hemoglobin 11.5 g/dl (12.0-16.0); Imm Gran Abs Auto 0.09 X10*3/uL (0.00-0.03); Imm Gran Pct Auto 0.7 % (0.0-0.4); Lymphocytes Absolute Auto 3.6 X10*3/uL (1.2-4.9); Lymphocytes Percent Auto 26.9 % (20-40); Mean Corpuscular HGB Conc 31.3 g/dl (31.0-35.0); Mean Corpuscular Hemoglobin 26.6 pg (27.0-33.0); Mean Corpuscular Volume 85.2 fL (80.0-98.0); Mean Platelet Volume 11.3 fL (9.4-12.3); Monocytes Absolute Auto 0.9 X10*3/uL (0.1-1.2); Neutrophils Absolute Auto 7.2 x10*3/uL (2.0-8.3); Neutrophils Percent Auto 54.1 % (45-73); Platelet Count 242 X10*3/uL (160-400); Red Blood Count 4.32 X10*6/uL (4.20-5.50); Red Cell Distribution Width 14.3 % (11.0-16.0); White Blood Count 13.4 X10*3/uL (4.8-10.8)
[2023-01-10 13:39] LABS: Appearance Urine Cloudy; Color Urine Dark Yellow; Glucose Urine UA Negative (Negative); Leukocyte Esterase Urine Small (1+) (Negative); Nitrite Urine Negative (Negative); PH 5.5 (5.0-9.0); Specific Gravity - Urine >= 1.030 (1.005-1.025); UMIC TRIGGER UA YES; Urine Blood Negative (Negative); Urine Ketones Trace mg/dL (Negative); Urine Protein Trace mg/dL (Neg-Trace)
[2023-01-10 13:55] LABS: Bacteria Urine 1+ (None Seen); Squamous Epithelial Cell Urine >20 /HPF (0-2)
[2023-01-10 14:03] LABS: Creatinine Urine 244.31 mg/dL; Protein/Creatinine Ratio, Ur 0.07 (<0.2); Total Protein Urine Random 17 mg/dL (<12)
[2023-01-10 14:16] LABS: Erythrocyte Sedimentation Rate 16 MM/HR (0-20)
[2023-01-10 14:18] LABS: Alanine Aminotransferase 33 U/L (0-31); Albumin Level 3.5 g/dL (3.5-5.0); Alkaline Phosphatase 131 U/L (39-117); Anion Gap 14 (12-20); Aspartate Amino Transferase 41 U/L (5-31); Bilirubin Total 0.2 mg/dL (0.0-1.0); Blood Urea Nitrogen 22 mg/dL (9-16); C Reactive Protein 0.99 mg/dL (< or = 0.50); Calcium 9.2 mg/dL (8.4-10.2); Carbon Dioxide 22 mmol/L (22-29); Chloride 108 mmol/L (96-108); Estimated Glomerular Filt Rate 47; Glucose Random 115 mg/dL (60-115); Potassium 4.3 mmol/L (3.3-5.1); Sodium 140 mmol/L (135-145); Total Protein 6.4 g/dL (6.5-8.0)
[2023-01-12 22:28] LABS: TS Negative Control Passed; TS Panel A 0; TS Panel B 1; TS Positive Control Passed; TSpotTB Negative (Negative)
[2023-01-13 03:46] LABS: HBS Num1 0.19 mIU/mL (0-7.99); HBc Num1 0.08 S/CO (0.00-0.79); HBsAGNum1 0.32 S/CO (0.00-0.99); Hepatitis A Antibody IgM 0.28 Index (0-0.79); Hepatitis B Core Antibody Nonreactive (Nonreactive); Hepatitis B Surface Antigen Negative (Negative); ~Hepatitis A Antibody IgM Nonreactive (Nonreactive); ~Hepatitis B Surface Antibody NONREACTIVE (Nonreactive); ~Hepatitis C Antibody Reactive (Nonreactive)
[2023-01-13 12:39] LABS: Prot Elec - Albumin 3.6 g/dL (3.8-4.8); Prot Elec - Alpha1 0.3 g/dL (0.2-0.3); Prot Elec - Alpha2 0.7 g/dL (0.5-0.9); Prot Elec - Beta 1 0.3 g/dL (0.4-0.6); Prot Elec - Beta 2 0.3 g/dL (0.2-0.5); Prot Elec - Gamma 0.9 g/dL (0.8-1.7); Prot Elec - Total Protein 6.2 g/dL (6.1-8.1)
[2023-01-14 12:04] LABS: Complement C3 109 mg/dL (83-193)
[2023-01-14 20:53] LABS: Anti DNA DS Antibody <1 IU/mL; Antibody to SS-A Antigen <1.0 NEG AI (<1.0 NEG); Antibody to SS-B Antigen <1.0 NEG AI (<1.0 NEG); SM/Ribonucleoprotein Ab <1.0 NEG AI (<1.0 NEG); Smith Protein <1.0 NEG AI (<1.0 NEG)
[2023-01-15 12:04] LABS: IgA 93 mg/dL (70-320); IgG 1214 mg/dL (600-1540); IgM 51 mg/dL (50-300)
== END 2023-01-10 10:37 | disposition home or self-care (01) ==
LOC: HO.LAB 10:36
PROVIDERS: PCP Internal Medicine; Visit Provider Student in an Organized Health Care Education/Training Program
DX: M25.40 Effusion, unspecified joint (principal); M05.9 Rheumatoid arthritis with rheumatoid factor, unspecified; M81.0 Age-related osteoporosis without current pathological fracture; Z11.59 Encounter for screening for other viral diseases; Z11.7 Encounter for testing for latent tuberculosis infection; Z72.89 Other problems related to lifestyle; Z79.899 Other long term (current) drug therapy
CPT/HCPCS: 36415; 72110; 73030; 73110; 73130; 73564; 73610; 73630; 80053; 81001; 82570; 82784; 84156; 84165; 85025; 85652; 86140; 86160; 86225; 86235; 86334; 86481; 86704; 86706; 86709; 86803; 87340

== ENCOUNTER 2023-01-10 10:36 | Outpatient (AMB) | payer OTHER, SELFPAY ==
--- NOTE | 2023-01-10 10:40 | MHC.OFFVIS ---
Intake Vital Signs 01/10/23 10:41 Height 4 ft 11 in Weight 165 lb 9.074 oz BMI 33.4 BP 138/76 Blood Pressure Location Rt brachial Position Sitting Pulse 81 Pulse Source Pulse Oximeter Temp 97.6 F Temp Source Skin Pulse Oximetry (%) 94 Intake Visit Reasons: Arthritis Intake Note: New pt presents today for arthritis consult. C/o pain in bl knee, low back, hands, and feet Senior Linux Administrator Required: Yes Senior Linux Administrator Name: Helga Tovar Accompanied by: LEAD CYTOGENETIC TECHNOLOGIST Gabriela Allergies lorazepam [LORAZEPAM] Allergy (Severe, Verified 01/10/23 10:47) DELIRIUM celecoxib [From Celebrex] Allergy (Intermediate, Verified 01/10/23 10:47) ITCHING tramadol [TRAMADOL] Allergy (Intermediate, Verified 01/10/23 10:47) ITCHING zolpidem [Ambien] Allergy (Unknown, Verified 01/10/23 10:47) unknown Medication List - Last Reconciled 01/10/23 by Briseida Rocha MD albuterol sulfate 90 mcg/actuation (Ventolin HFA) 2 puffs PO Q4-6H PRN amlodipine 10 mg PO DAILY aripiprazole 20 mg PO DAILY atorvastatin 80 mg PO DAILY 30 days BD Cherelle 2nd Gen Pen Needle (pen needle, diabetic) 5 times a day NS bisacodyl 10 mg (2 x 5 mg) PO BEDTIME blood sugar diagnostic (FreeStyle Lite Strips) 8 times a day blood-glucose meter (FreeStyle Lite Meter kit) As directed blood-glucose meter,continuous (Dexcom G6 Delinquent Account Clerk) As directed calcium citrate 400 mg (2 x 200 mg (950 mg)) PO BID carvedilol 6.25 mg PO BID cholecalciferol (vitamin D3) (Vitamin D3) 50 mcg PO QAM clonazepam 1 tab PO Q8H PRN clopidogrel 75 mg PO QAM cyanocobalamin (vitamin B-12) 1 mL PO .once a month esomeprazole magnesium 40 mg PO DAILY folic acid 1 mg PO DAILY gabapentin mg PO glucagon 3 mg/actuation (Baqsimi) 3 mg intranasal ONCE 30 days hydroxyzine HCl 10 mg PO Q8H PRN insulin aspart (niacinamide) 100 unit/mL (3 mL) (Fiasp FlexTouch U-100 Insulin) 2 - 14 units subcut QID insulin degludec (Tresiba FlexTouch U-100 insulin) 30 units (0.3 mL) subcut DAILY insulin syringe-needle U-100 (BD Insulin Syringe Ultra-Fine) As directed 3 times per day levothyroxine 100 mcg PO QAM lidocaine-prilocaine 2.5-2.5 % topical DAILY linaclotide (Linzess) 290 mcg PO QAM 30 days losartan 50 mg PO QAM meloxicam 15 mg PO DAILY prazosin 6 mg PO BEDTIME sucralfate 10 mL PO BID venlafaxine ER (Effexor XR) 150 mg PO DAILY HPI HPI Comments History of Present Illness Details This is a 72-year-old female who presents for evaluation of joint pain. Patient states that she started having pain and swelling of her hands and feet, ankles over the last 6 months associated with morning stiffness lasting 10 minutes. She has had back pain for years. Meloxicam is not helpful. She is unaware of any family history of autoimmune rheumatic disease. She denies any skin rashes. Denies any history of DVT/PE or recurrent abortions. [facility] Medical History (Updated 01/10/23 @ 11:30 by Briseida Rocha MD) Osteoporosis Cholecystitis Elevated liver function tests Intestinal malabsorption following gastrectomy Hyperlipidemia, unspecified Essential hypertension Atherosclerotic cardiovascular disease NSTEMI (non-ST elevated myocardial infarction) Fibromyalgia Folliculitis Anxiety Depression History of myocardial infarction Diabetes type 1, uncontrolled Obesity (BMI 30-39.9) Hyperparathyroidism due to vitamin D deficiency Dyslipidemia 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 Hypertension Rona's disease Hypothyroidism Surgical History History of esophagogastroduodenoscopy (EGD) H/O colonoscopy History of laparoscopic cholecystectomy History of bladder suspension procedure Status post laser cataract surgery of both eyes Hx of appendectomy H/O gastric bypass Family History Father No problems noted. Mother CVA (cerebral vascular accident) Sister Hypertension Brother Hypertension Liver cancer Social History Household Members: None and Unknown / Unable to assess Housing: Apartment Are you a primary healthcare administration internship to a significant other at home: No Do you presently have visiting nurse or other home services: Yes Unable to assess alcohol history related to: Unable to respond Alcohol intake: never Patient Tobacco Use Status: Never used Tobacco service: No Current occupational status: disabled Female Reproductive History Menstrual Total pregnancies: 3 Full term: 3 Review of Systems Const Reports fatigue and Reports headache(s) ENT Reports headache(s) Musc Reports back pain, Reports arthralgias, Reports joint swelling, Reports limited range of motion and Reports stiffness Neuro Reports headache(s) Psych Reports anxiety Endo Reports fatigue Physical Exam Vital Signs: Last Vital Signs Temp 97.6 F 01/10/23 10:41 Pulse 81 01/10/23 10:41 BP 138/76 01/10/23 10:41 Pulse Ox 94 01/10/23 10:41 BMI result Body Mass Index 33.4 Const General: cooperative, healthy appearing and comfortable Nutritional Appearance: obese Orientation/consciousness: patient oriented x3 Limitations: no limitations HEENT Head: Yes normocephalic and Yes atraumatic Mouth: moist mucous membranes Resp Effort & Inspection: normal respiratory effort and able to speak in complete sentences Auscultation: clear to auscultation bilaterally Cardio Rate: regular rate Rhythm: regular rhythm Skin General skin exam: no rashes or lesions noted Neuro General: patient oriented x3 Extrem Other: Prominent RA deformities in both hands Diffuse MCP swelling bilaterally with ulnar deviation at the MCPs Diffuse PIP swelling and tenderness bilaterally Painful range of motion of both shoulders No knee pain, swelling or warmth Left ankle tenderness to palpation Left foot diffuse MTP tenderness and positive to MTP squeeze test, clubfeet deformity Right foot diffuse MTP tenderness Normal nailfold capillaroscopy Kyphotic Results Reviewed Results Reviewed: Labs 08/2022 SUSAN 1-12 80 fine speckled Labs 09/2022 RF 15.3 ( <13.0) SUSAN 1-640 fine speckled CCP negative Assessment & Plan Assessment & Plan (1) Seropositive rheumatoid arthritis: Code(s): M05.9 - Rheumatoid arthritis with rheumatoid factor, unspecified Plan: This is a 72-year-old female who presents with 6 month history of bilateral hand feet ankles swelling and tenderness. On exam she has RA deformities of both hands. Recent labs showed borderline positive rheumatoid factor, negative CCP and positive SUSAN. Will order comprehensive serology to screen for overlap with other autoimmune rheumatic diseases. Check x-rays of involved joints. Prednisone is relatively contraindicated as patient has diabetes mellitus on insulin. Follow-up in 2 weeks (2) Screening for osteoporosis: Code(s): Z13.820 - Encounter for screening for osteoporosis Plan: Kyphotic on exam. Will order a DEXA scan to evaluate for osteoporosis Plan I spent 47 minutes reviewing patient's chart, evaluating patient, ordering diagnostic workup, counseling patient and documenting in the chart Orders: Orders Anti DNA DS Antibody Today M25.40 - Effusion, unspecified joint C Reactive Protein Today M25.40 - Effusion, unspecified joint Protein Creatinine Ratio, Ur Today M25.40 - Effusion, unspecified joint Complete Blood Count Auto Diff Today M25.40 - Effusion, unspecified joint Comprehensive Met. Panel Today M25.40 - Effusion, unspecified joint Erythrocyte Sedimentation Rate Today M25.40 - Effusion, unspecified joint Hepatitis A,B,C Profile Today Z11.59 - Encounter for screening for other viral diseases Immunofixation Pnl, Serum Today M25.40 - Effusion, unspecified joint T Spot TB Today Z11.7 - Encounter for testing for latent tuberculosis infection XR DEXA axial skeleton Today M81.0 - Age-related osteoporosis without current pathological fracture XR hand wrist RT Today M06.9 - Rheumatoid arthritis, unspecified XR knee RT 3V Today M06.9 - Rheumatoid arthritis, unspecified XR knee standing BI Today M06.9 - Rheumatoid arthritis, unspecified XR ankle LT min 3V Today M06.9 - Rheumatoid arthritis, unspecified XR ankle RT min 3V Today M06.9 - Rheumatoid arthritis, unspecified XR foot LT min 3V Today M06.9 - Rheumatoid arthritis, unspecified XR foot RT min 3V Today M06.9 - Rheumatoid arthritis, unspecified Anti Extractable Nuclear Ag Today M25.40 - Effusion, unspecified joint Complement C3 Today M25.40 - Effusion, unspecified joint Complement C4 Today M25.40 - Effusion, unspecified joint Sjogren's Antibodies Today M25.40 - Effusion, unspecified joint UA w Microscopic Today M25.40 - Effusion, unspecified joint Protein Electrophoresis, Serum Today M25.40 - Effusion, unspecified joint XR hand wrist LT Today M06.9 - Rheumatoid arthritis, unspecified XR knee LT 3V Today M06.9 - Rheumatoid arthritis, unspecified XR lumbar spine 4V min Today M06.9 - Rheumatoid arthritis, unspecified XR shoulder RT min 2V Today M06.9 - Rheumatoid arthritis, unspecified XR shoulder LT min 2V Today M06.9 - Rheumatoid arthritis, unspecified Coding Level of Care Code New Pt Level 4 (96634) Diagnoses Seropositive rheumatoid arthritis M05.9 Screening for osteoporosis Z13.820
[2023-01-10 10:41] VITALS: BP 138/76; PULSE 81; TEMP 36.4; O2SAT 94; BMI 33.4
== END 2023-01-10 11:28 | disposition home or self-care (01) ==
PROVIDERS: PCP Internal Medicine; Visit Provider Student in an Organized Health Care Education/Training Program
DX: M05.79 Rheumatoid arthritis with rheumatoid factor of multiple sites without organ or systems involvement (principal); Z13.820 Encounter for screening for osteoporosis
CPT/HCPCS: 99204

== ENCOUNTER 2023-01-14 11:19 | Outpatient (REF) | payer OTHER, SELFPAY ==
[2023-01-15 04:16] LABS: ~HepC Num1 3.26 S/CO (0.00-0.79); ~Hepatitis C Antibody Reactive (Nonreactive)
[2023-01-16 14:49] LABS: HCV Log PCR <1.18 NOT DETECTED Log IU/mL (NOT DETECTED); HepC Viral Load <15 NOT DETECTED IU/mL (NOT DETECTED)
== END 2023-01-14 11:20 | disposition home or self-care (01) ==
LOC: HO.LAB 11:19
PROVIDERS: PCP Internal Medicine; Visit Provider Student in an Organized Health Care Education/Training Program
DX: B19.20 Unspecified viral hepatitis C without hepatic coma (principal); E66.9 Obesity, unspecified; Z98.84 Bariatric surgery status
CPT/HCPCS: 36415; 86803; 87522; 99212

== ENCOUNTER 2023-01-14 11:38 | Outpatient (AMB) | payer OTHER, SELFPAY ==
--- NOTE | 2023-01-14 11:50 | A.OFFVIS_ITS ---
Intake VS Expanded 01/14/23 11:52 Height 4 ft 11 in Weight 160 lb 12.8 oz BMI 32.5 BP 188/78 H Blood Pressure Location Rt brachial Blood Pressure Position Sitting Respiratory Rate 16 Pulse 86 Pulse Source Pulse Oximeter Temp 98.3 F Temperature Source Temporal Artery Scan Pulse Oximetry 97 Oxygen Delivery Method Room Air Body Fat 61.2 Body Fat Percentage 38.1 Free Fat Mass 99.4 Muscle Mass 94.4 Visceral Mass 12.0 Water Mass 69.8 BMR 1,355 Intake Visit Reasons: (OV) PO LSG 12/09/2016 Shot Polisher Required: Yes Allergies lorazepam [LORAZEPAM] Allergy (Severe, Verified 01/14/23 11:55) DELIRIUM celecoxib [From Celebrex] Allergy (Intermediate, Verified 01/14/23 11:55) ITCHING tramadol [TRAMADOL] Allergy (Intermediate, Verified 01/14/23 11:55) ITCHING zolpidem [Ambien] Allergy (Unknown, Verified 01/14/23 11:55) unknown Medication List - Last Reconciled 01/14/23 by MARK Paulson albuterol sulfate 90 mcg/actuation (Ventolin HFA) 2 puffs PO Q4-6H PRN amlodipine 10 mg PO DAILY aripiprazole 20 mg PO DAILY atorvastatin 80 mg PO DAILY 30 days BD Cherelle 2nd Gen Pen Needle (pen needle, diabetic) 5 times a day NS bisacodyl 10 mg (2 x 5 mg) PO BEDTIME blood sugar diagnostic (FreeStyle Lite Strips) 8 times a day blood-glucose meter (FreeStyle Lite Meter kit) As directed blood-glucose meter,continuous (Dexcom G6 Cadd Operator) As directed calcium citrate 400 mg (2 x 200 mg (950 mg)) PO BID carvedilol 6.25 mg PO BID cholecalciferol (vitamin D3) (Vitamin D3) 50 mcg PO QAM clonazepam 1 tab PO Q8H PRN clopidogrel 75 mg PO QAM cyanocobalamin (vitamin B-12) 1 mL PO .once a month esomeprazole magnesium 40 mg PO DAILY folic acid 1 mg PO DAILY gabapentin mg PO glucagon 3 mg/actuation (Baqsimi) 3 mg intranasal ONCE 30 days hydroxyzine HCl 10 mg PO Q8H PRN insulin aspart (niacinamide) 100 unit/mL (3 mL) (Fiasp FlexTouch U-100 Insulin) 2 - 14 units subcut QID insulin degludec (Tresiba FlexTouch U-100 insulin) 30 units (0.3 mL) subcut DAILY insulin syringe-needle U-100 (BD Insulin Syringe Ultra-Fine) As directed 3 times per day levothyroxine 100 mcg PO QAM lidocaine-prilocaine 2.5-2.5 % topical DAILY linaclotide (Linzess) 290 mcg PO QAM 30 days losartan 50 mg PO QAM meloxicam 15 mg PO DAILY prazosin 6 mg PO BEDTIME sucralfate 10 mL PO BID venlafaxine ER (Effexor XR) 150 mg PO DAILY HPI HPI Comments History of Present Illness Details This?is a?72?yo female who is s/p LSG 12/09/2016. Presents for 6 year post op visit. Weight at last visit on 12/14/2021 was 146.2 pounds with a BMI of 29.5, weight today is 160.8 pounds, representing a 14.6 pound weight gain with a BMI today of 32.5.? No complaints of nausea, emesis, abdominal pain or reflux, or constipation. Present meal plan includes: 9am - 1 scoop 4:1 shake with 8oz unsweet ened almond milk AM snack- none 12 pm- rice, meat, vegetables 3pm - fruit, multigrain cookie 6pm - rice and meat not taking MVI Exercise: causes heart racing so avoids GERD: resolved ISIS: never DM - Tresiba, insulin aspart HTN: amlodipine, losartan Hyperlipidemia: resumed atorvastatin Post op complications: none [facility] Medical History (Updated 01/14/23 @ 08:09 by Briseida Rocha MD) Osteoporosis Cholecystitis Elevated liver function tests Intestinal malabsorption following gastrectomy Hyperlipidemia, unspecified Essential hypertension Atherosclerotic cardiovascular disease NSTEMI (non-ST elevated myocardial infarction) Fibromyalgia Folliculitis Anxiety Depression History of myocardial infarction Diabetes type 1, uncontrolled Obesity (BMI 30-39.9) Hyperparathyroidism due to vitamin D deficiency Dyslipidemia 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 Hypertension Rona's disease Hypothyroidism Surgical History History of esophagogastroduodenoscopy (EGD) H/O colonoscopy History of laparoscopic cholecystectomy History of bladder suspension procedure Status post laser cataract surgery of both eyes Hx of appendectomy H/O gastric bypass Family History Father No problems noted. Mother CVA (cerebral vascular accident) Sister Hypertension Brother Hypertension Liver cancer Social History Household Members: None and Unknown / Unable to assess Housing: Apartment Are you a primary healthcare liaison to a significant other at home: No Do you presently have visiting nurse or other home services: Yes Unable to assess alcohol history related to: Unable to respond Alcohol intake: never Patient Tobacco Use Status: Never used Tobacco service: No Current occupational status: disabled Physical Exam Vital Signs: Last Vital Signs Temp 98.3 F 01/14/23 11:52 Pulse 86 01/14/23 11:52 Resp 16 01/14/23 11:52 BP 188/78 H 01/14/23 11:52 Pulse Ox 97 01/14/23 11:52 Oxygen Delivery Method Room Air 01/14/23 11:52 BMI result Body Mass Index 32.5 Assessment & Plan Assessment & Plan (1) H/O gastric bypass: Code(s): Z98.84 - Bariatric surgery status (2) Obesity (BMI 30-39.9): Code(s): E66.9 - Obesity, unspecified Plan Recommended changes to meal plan: eliminate rice, cookie; have midafternoon snack of Belgian yogurt or 1 scoop shake to increase overall protein intake. Ordered vitamin levels as those do not appear to have been drawn recently. Gave handout on home exercises pt can do such as Sit and Be Fit to minimize pain. Discussed that weight loss will likely be slow since pt is limited in exercise but if she follows meal plan consistently, increases protein intake and tries to exercise in whatever way is comfortable for her she should still see weight loss. Total portion sizes no more than 6oz per meal as pt is s/p bypass. RTC 1 year or sooner if needed. Patient is obese and is not considered stable at this time. I spent a total of 30 minutes reviewing/updating records, examining the patient and counseling the patient on weight management as detailed above. Orders: Orders Zinc Today Z98.84 - Bariatric surgery status PTHI Today Z98.84 - Bariatric surgery status Vitamin D 25-OH Total Today Z98.84 - Bariatric surgery status Vitamin B12 and Folate Today Z98.84 - Bariatric surgery status Vitamin B1 Today Z98.84 - Bariatric surgery status Hemoglobin A1c Today Z98.84 - Bariatric surgery status Vitamin A Today Z98.84 - Bariatric surgery status TSH reflex Free T4 Today Z98.84 - Bariatric surgery status Coding Level of Care Code Est Pt Level 4 (57664) Diagnoses H/O gastric bypass Z. Obesity (BMI 30-39.9) E66.9
[2023-01-14 11:52] VITALS: BP 188/78; PULSE 86; RESP 16; TEMP 36.8; O2SAT 97; BMI 32.5
== END 2023-01-14 12:57 | disposition home or self-care (01) ==
PROVIDERS: PCP Internal Medicine; Visit Provider Physician Assistant Surgical
DX: E66.9 Obesity, unspecified (principal); Z68.32 Body mass index [BMI] 32.0-32.9, adult; Z90.3 Acquired absence of stomach [part of]; Z98.84 Bariatric surgery status
CPT/HCPCS: 99214

== ENCOUNTER 2023-01-15 10:52 | Outpatient (REF) | payer OTHER, SELFPAY ==
[2023-01-15 12:03] LABS: Estimated Average Glucose 189 mg/dL; Hemoglobin A1c % 8.2 % (<6.0)
[2023-01-15 13:27] LABS: TSH reflex Free T4 1.63 uIU/mL (0.32-4.0)
[2023-01-15 13:57] LABS: Folate > 20.0 ng/mL (> or = 4.0); Vitamin B12 1118 pg/mL (200-900)
[2023-01-16 16:19] LABS: Calcium (PTHI) 8.9 mg/dL (8.6-10.4); PTHI 61 pg/mL (16-77)
[2023-01-18 22:44] LABS: Zinc 70 mcg/dL (60-130)
[2023-01-19 14:54] LABS: Vitamin B1 34 nmol/L (8-30)
[2023-01-21 04:58] LABS: Vitamin A 61 mcg/dL (38-98)
[2023-01-21 15:09] LABS: Hepatitis C Genotype Not Detected
== END 2023-01-15 10:53 | disposition home or self-care (01) ==
LOC: HO.LAB 10:52
PROVIDERS: Student in an Organized Health Care Education/Training Program; PCP Internal Medicine; Visit Provider Physician Assistant Surgical
DX: K91.2 Postsurgical malabsorption, not elsewhere classified (principal); B19.20 Unspecified viral hepatitis C without hepatic coma; Z98.84 Bariatric surgery status
CPT/HCPCS: 36415; 82306; 82607; 82746; 83036; 83970; 84425; 84443; 84590; 84630; 87902

== ENCOUNTER 2023-01-22 11:38 | Outpatient (AMB) | payer OTHER, SELFPAY ==
--- NOTE | 2023-01-22 11:57 | A.OFFVIS_ITS ---
Intake Vital Signs 01/22/23 11:59 Height 4 ft 11 in Weight 162 lb 11.218 oz BMI 32.9 BP 144/80 H Blood Pressure Location Rt brachial Position Sitting Pulse 87 Pulse Source Pulse Oximeter Temp 97.1 F Temp Source Skin Pulse Oximetry (%) 95 Intake Visit Reasons: RA/overbook if needed Intake Note: Pt seen today for follow up to discuss lab results. C/o low back pain Payroll Machine Operator Required: Yes Payroll Machine Operator Name: Lance [id number] Accompanied by: FARMER CASH GRAIN Gabriela Allergies lorazepam [LORAZEPAM] Allergy (Severe, Verified 01/22/23 12:01) DELIRIUM celecoxib [From Celebrex] Allergy (Intermediate, Verified 01/22/23 12:01) ITCHING tramadol [TRAMADOL] Allergy (Intermediate, Verified 01/22/23 12:01) ITCHING zolpidem [Ambien] Allergy (Unknown, Verified 01/22/23 12:01) unknown Medication List - Last Reconciled 01/22/23 by Briseida Rocha MD albuterol sulfate 90 mcg/actuation (Ventolin HFA) 2 puffs PO Q4-6H PRN amlodipine 10 mg PO DAILY aripiprazole 20 mg PO DAILY atorvastatin 80 mg PO DAILY 30 days BD Cherelle 2nd Gen Pen Needle (pen needle, diabetic) 5 times a day NS bisacodyl 10 mg (2 x 5 mg) PO BEDTIME blood sugar diagnostic (FreeStyle Lite Strips) 8 times a day blood-glucose meter (FreeStyle Lite Meter kit) As directed blood-glucose meter,continuous (Dexcom G6 Distributed Generation Project Manager) As directed calcium citrate 400 mg (2 x 200 mg (950 mg)) PO BID carvedilol 6.25 mg PO BID cholecalciferol (vitamin D3) (Vitamin D3) 50 mcg PO QAM clonazepam 1 tab PO Q8H PRN clopidogrel 75 mg PO QAM cyanocobalamin (vitamin B-12) 1 mL PO .once a month esomeprazole magnesium 40 mg PO DAILY folic acid 1 mg PO DAILY gabapentin mg PO glucagon 3 mg/actuation (Baqsimi) 3 mg intranasal ONCE 30 days hydroxyzine HCl 10 mg PO Q8H PRN insulin aspart (niacinamide) 100 unit/mL (3 mL) (Fiasp FlexTouch U-100 Insulin) 2 - 14 units subcut QID insulin degludec (Tresiba FlexTouch U-100 insulin) 30 units (0.3 mL) subcut DAILY insulin syringe-needle U-100 (BD Insulin Syringe Ultra-Fine) As directed 3 times per day levothyroxine 100 mcg PO QAM lidocaine-prilocaine 2.5-2.5 % topical DAILY linaclotide (Linzess) 290 mcg PO QAM 30 days losartan 50 mg PO QAM meloxicam 15 mg PO DAILY prazosin 6 mg PO BEDTIME sucralfate 10 mL PO BID venlafaxine ER (Effexor XR) 150 mg PO DAILY HPI HPI Comments History of Present Illness Details Patient returns for follow-up after completion of her blood work. Continues to feel about the same. Initial history : This is a 72-year-old female who presents for evaluation of joint pain. Patient states that she started having pain and swelling of her hands and feet, ankles over the last 6 months associated with morning stiffness lasting 10 minutes. She has had back pain for years. Meloxicam is not helpful. She is unaware of any family history of autoimmune rheumatic disease. She denies any skin rashes. Denies any history of DVT/PE or recurrent abortions. [facility] Medical History (Updated 01/22/23 @ 12:59 by Briseida Rocha MD) Cholecystitis Elevated liver function tests Intestinal malabsorption following gastrectomy Hyperlipidemia, unspecified Essential hypertension Atherosclerotic cardiovascular disease NSTEMI (non-ST elevated myocardial infarction) Fibromyalgia Folliculitis Anxiety Depression History of myocardial infarction Diabetes type 1, uncontrolled Obesity (BMI 30-39.9) Hyperparathyroidism due to vitamin D deficiency Dyslipidemia 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 Hypertension Rona's disease Hypothyroidism Surgical History History of esophagogastroduodenoscopy (EGD) H/O colonoscopy History of laparoscopic cholecystectomy History of bladder suspension procedure Status post laser cataract surgery of both eyes Hx of appendectomy H/O gastric bypass Family History Father No problems noted. Mother CVA (cerebral vascular accident) Sister Hypertension Brother Hypertension Liver cancer Social History Household Members: None and Unknown / Unable to assess Housing: Apartment Are you a primary home care aide to a significant other at home: No Do you presently have visiting nurse or other home services: Yes Unable to assess alcohol history related to: Unable to respond Alcohol intake: never Patient Tobacco Use Status: Never used Tobacco service: No Current occupational status: disabled Review of Systems Musc Reports back pain, Reports arthralgias, Reports joint swelling, Reports limited range of motion and Reports stiffness Physical Exam Vital Signs: Last Vital Signs Temp 97.1 F 01/22/23 11:59 Pulse 87 01/22/23 11:59 BP 144/80 H 01/22/23 11:59 Pulse Ox 95 01/22/23 11:59 BMI result Body Mass Index 32.9 Const General: cooperative, healthy appearing and comfortable Nutritional Appearance: obese Orientation/consciousness: patient oriented x3 Limitations: no limitations HEENT Head: Yes normocephalic and Yes atraumatic Resp Effort & Inspection: normal respiratory effort and able to speak in complete sentences Neuro General: patient oriented x3 Extrem Other: Prominent RA deformities in both hands Diffuse MCP swelling bilaterally, ulnar deviation at the MCPs left hand Diffuse PIP swelling and tenderness bilaterally Painful range of motion of both shoulders No knee pain, swelling or warmth Normal nailfold capillaroscopy Kyphotic Results Reviewed Results Reviewed: Labs 08/2022 SUSAN 1-12 80 fine speckled Labs 09/2022 RF 15.3 ( <13.0) SUSAN 1-640 fine speckled CCP negative Assessment & Plan Assessment & Plan (1) Seropositive rheumatoid arthritis: Comment: +RF -ve CCP dx 02/10 Code(s): M05.9 - Rheumatoid arthritis with rheumatoid factor, unspecified Plan: This is a 72-year-old female who presents with 6 month history of bilateral hand feet ankles swelling and tenderness. On exam she has prominent synovitis. Recent labs showed borderline positive rheumatoid factor, negative CCP and positive SUSAN. Clinical picture consistent with new onset seropositive RA. Will need to start DMARDs. Given transaminitis, CsDMARDs such as methotrexate, sulfasalazine and leflunomide would be contraindicated. I do not believe hydroxychloroquine would be active good given degree of synovitis. Patient will need a biologic DMARD. Discussed risks and benefits of TNF inhibitors. Patient agreed to proceed. Will start prior authorization for Enbrel Labs before next visit in 2 months (2) Screening for osteoporosis: Code(s): Z13.820 - Encounter for screening for osteoporosis Plan: Kyphotic on exam. ordered a DEXA scan to evaluate for osteoporosis (3) Hepatitis C antibody positive in blood: Code(s): R76.8 - Other specified abnormal immunological findings in serum Plan: Positive hepatitis-C antibody with negative hep C RNA. Labs in 2021 showed negative hepatitis-C antibody. Unclear cause. Patient might have cleared hepatitis C infection or a lab error. (4) Elevated liver function tests: Comment: BASELINE LABS 06/22/21 Hgb A1c (Clinic) 9.6 H GGT 82 H TSH 21.04 H Alpha Fetoprotein 3.9 SUSAN Screen POSITIVE A SUSAN Titer 1:640 H SUSAN Pattern Nuclear, Speckled A Anti-Mitochondrial Ab NEGATIVE Anti-Smooth Muscle Ab <20 WBC 8.7 Hgb 11.9 L Hct 36.9 L MCV 85.2 MCH 27.5 Estimated GFR 50 Hgb A1c (Clinic) Ferritin 422 H Total Bilirubin 0.3 GGT AST 28 D ALT 30 Alkaline Phosphatase 129 H D Hepatitis A IgM Ab Nonreactive Hep Bs Antigen Negative Hep Bs Antibody NONREACTIVE Hep B Core Total Ab Nonreactive Hepatitis C Ab (EIA) Nonreactive HIV 1&2 Ab/P24 Ag 4thGn Nonreactive 09/07/21 10:28 PT 10.5 INR 0.9 CURRENT LABS The patient returned to primary care service to monitor liver function tests and return to us if they become more than 2 times baseline 03/29/22 10:45 Estimated GFR 52 Total Bilirubin 0.2 AST 24 ALT 25 Alkaline Phosphatase 106 ULTRASOUND OF THE ABDOMEN 03/20/22 FINDINGS: PANCREAS: The pancreas is obscured by gas. LIVER: Normal. The liver is normal in size. The liver contour is normal. Parenchymal echogenicity is normal. No focal hepatic lesion. There is no intrahepatic biliary duct dilatation seen. GALLBLADDER: Surgically absent. COMMON BILE DUCT: Normal in caliber measuring 0.4 cm in diameter. RIGHT KIDNEY: Normal. No hydronephrosis. No renal calculi or focal parenchymal lesions. The kidney measures 8.7 cm in maximum dimension. FREE FLUID: None. US/US abdomen limited IMPRESSION: Unremarkable limited abdomen ultrasound. No major change compared to previous study 09/05/2021 ? Previously seen right pleural effusion is not visualized on the present exam. Code(s): R79.89 - Other specified abnormal findings of blood chemistry Plan: Follow-up with PCP (5) High risk medication use: Code(s): Z79.899 - Other terminal operations supervisor (current) drug therapy Plan: Side effects of Enbrel were discussed with the patient in detail including increased risk of infection, demyelinating disease, reactivation of latent TB, possible increased risk of solid and skin tumors. Patient fully aware. Advised patient to seek medical care JEFFREY if patient has an infection and advised patient to stop the medication until the infection is resolved. Plan I spent 46 minutes reviewing patient's chart, evaluating patient, ordering diagnostic workup, counseling patient and documenting in the chart Orders: Orders C Reactive Protein 2 Months R76.8 - Other specified abnormal immunological findings in serum Erythrocyte Sedimentation Rate 2 Months R76.8 - Other specified abnormal immunological findings in serum Complete Blood Count Auto Diff 2 Months R76.8 - Other specified abnormal immunological findings in serum Comprehensive Met. Panel 2 Months R76.8 - Other specified abnormal immunological findings in serum Coding Level of Care Code Est Pt Level 5 (69371) Diagnoses Seropositive rheumatoid arthritis M05.9 Screening for osteoporosis Z13.820 Hepatitis C antibody positive in blood R76.8 Elevated liver function tests R79.89 High risk medication use Z79.899
[2023-01-22 11:59] VITALS: BP 144/80; PULSE 87; TEMP 36.2; O2SAT 95; BMI 32.9
== END 2023-01-22 12:26 | disposition home or self-care (01) ==
PROVIDERS: PCP Internal Medicine; Visit Provider Student in an Organized Health Care Education/Training Program
DX: M05.79 Rheumatoid arthritis with rheumatoid factor of multiple sites without organ or systems involvement (principal); R76.8 Other specified abnormal immunological findings in serum; R79.89 Other specified abnormal findings of blood chemistry; Z79.899 Other long term (current) drug therapy; Z13.820 Encounter for screening for osteoporosis
CPT/HCPCS: 99215

== ENCOUNTER → 2023-01-22 11:38 | Outpatient (BNVA) | payer OTHER, SELFPAY | PROVIDERS: PCP Internal Medicine; Visit Provider Student in an Organized Health Care Education/Training Program | DX: M05.9 Rheumatoid arthritis with rheumatoid factor, unspecified (principal); R76.8 Other specified abnormal immunological findings in serum; R79.89 Other specified abnormal findings of blood chemistry; Z79.899 Other long term (current) drug therapy | CPT/HCPCS: 99212 ==

== ENCOUNTER 2023-02-19 10:44 | Outpatient (AMB) | payer OTHER, SELFPAY ==
--- NOTE | 2023-02-19 11:50 | MHC.AMDMED ---
Intake Intake Visit Reasons: DM Personal Computer Specialist Required: Yes Personal Computer Specialist Language: Academic Interventionist Name: Steff [id number] Information Interpreted: non-clinical & clinical Accompanied by: Other Relationship Allergies lorazepam [LORAZEPAM] Allergy (Severe, Verified 01/22/23 12:01) DELIRIUM celecoxib [From Celebrex] Allergy (Intermediate, Verified 01/22/23 12:01) ITCHING tramadol [TRAMADOL] Allergy (Intermediate, Verified 01/22/23 12:01) ITCHING zolpidem [Ambien] Allergy (Unknown, Verified 01/22/23 12:01) unknown HPI Comprehensive Diabetes Asmnt Most Recent Diabetes Results: Hemoglobin A1c 6.7 % 04/24/18 Microalb/Creat Ratio 16.8 ug/mg cr 07/17/21 Cholesterol 178 mg/dL 12/19/21 HDL Cholesterol 48 mg/dL 12/19/21 Triglycerides 159 mg/dL 12/19/21 Creatinine 1.13 mg/dL (0.5-1.4) 01/10/23 Blood Urea Nitrogen 22 mg/dL (9-16) H 01/10/23 Sodium 140 mmol/L (135-145) 01/10/23 Potassium 4.3 mmol/L (3.3-5.1) 01/10/23 Chloride 108 mmol/L (96-108) 01/10/23 Carbon Dioxide 22 mmol/L (22-29) 01/10/23 Calcium 9.2 mg/dL (8.4-10.2) 01/10/23 AST 41 U/L (5-31) H 01/10/23 ALT 33 U/L (0-31) H 01/10/23 Total Protein 6.4 g/dL (6.5-8.0) L 01/10/23 Albumin 3.5 g/dL (3.5-5.0) 01/10/23 [facility] Medical History (Updated 01/22/23 @ 12:59 by Briseida Rocha MD) Cholecystitis Elevated liver function tests Intestinal malabsorption following gastrectomy Hyperlipidemia, unspecified Essential hypertension Atherosclerotic cardiovascular disease NSTEMI (non-ST elevated myocardial infarction) Fibromyalgia Folliculitis Anxiety Depression History of myocardial infarction Diabetes type 1, uncontrolled Obesity (BMI 30-39.9) Hyperparathyroidism due to vitamin D deficiency Dyslipidemia 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 Hypertension Rona's disease Hypothyroidism Surgical History History of esophagogastroduodenoscopy (EGD) H/O colonoscopy History of laparoscopic cholecystectomy History of bladder suspension procedure Status post laser cataract surgery of both eyes Hx of appendectomy H/O gastric bypass Family History Father No problems noted. Mother CVA (cerebral vascular accident) Sister Hypertension Brother Hypertension Liver cancer Social History Household Members: None and Unknown / Unable to assess Housing: Apartment Are you a primary day care home provider to a significant other at home: No Do you presently have visiting nurse or other home services: Yes Unable to assess alcohol history related to: Unable to respond Alcohol intake: never Patient Tobacco Use Status: Never used Tobacco service: No Current occupational status: disabled Assessment & Plan Assessment & Plan (1) Diabetes type 1, uncontrolled: Code(s): E10.65 - Type 1 diabetes mellitus with hyperglycemia Qualifiers: Glycemic state: with hypoglycemia Coma presence: without coma Qualified Code(s): E10.649 - Type 1 diabetes mellitus with hypoglycemia without coma Plan: Personal Continuous Glucose Monitor: Patients CGM information reviewed Reviewed patient's sensor data: Hypoglycemia: ? 1% Hyperglycemia:? 74% Time in Range:? 25% Average glucose for the last 2 weeks 221? mg/dL After reducing Tresiba from 30 units to 18 units patient has resolved 10% hypoglycemic range from last visit. Patient is still experiencing postprandial hyperglycemia, recommended to patient she increase Fiasp mealtime dose from 10 units to 12 units. If hypoglycemia increases reduce back to previous dose. Patient given copy of new insulin plan Recommended patient follow-up with comic book designer in 1 month Patient able to insert sensor independently at home without issue.? Patient Instructions: Medicamentos para la diabetes: Tresiba 18 unidades Fiasp 12 unidades antes del desayuno cada comida y unidades antes de los batidos de prote?renay solamente Escala de correcci?n Fiasp: 200-250 mg por dL 2 unidades 251-300 mg/dL 3 unidades 301-350 mg/dL 4 unidades 351-400 mg por dL 5 unidades M?s de 400 mg por dL 6 unidades. Coding Level of Care Code Est Pt Level 1 (30830) Diagnoses Uncontrolled type 1 diabetes mellitus with hypoglycemia without coma E10.649 Glycemic state: with hypoglycemia Coma presence: without coma
== END 2023-02-19 11:52 | disposition home or self-care (01) ==
LOC: HO.ENCR 10:44
PROVIDERS: PCP Internal Medicine; Visit Provider Registered Nurse Diabetes Educator
DX: E10.649 Type 1 diabetes mellitus with hypoglycemia without coma (principal)

== ENCOUNTER → 2023-02-19 10:44 | Outpatient (BNVA) | payer OTHER, SELFPAY | PROVIDERS: PCP Internal Medicine; Visit Provider Registered Nurse Diabetes Educator | DX: E10.649 Type 1 diabetes mellitus with hypoglycemia without coma (principal) | CPT/HCPCS: 99211 ==

== ENCOUNTER 2023-02-20 10:46 | Outpatient (AMB) | payer OTHER, SELFPAY ==
--- NOTE | 2023-02-20 10:51 | A.OFFVIS_ITS ---
Intake Vital Signs 02/20/23 11:23 Height 4 ft 11 in Weight 164 lb 7.437 oz BMI 33.2 BP 178/78 H Blood Pressure Location Rt brachial Position Sitting Pulse 73 Intake Visit Reasons: 6 month f/u Intake Note: Brandie presents in the office as a 6 months follow up of elevated LFT's. CC: Patient continues to c/o of body ache and headaches. She states she was seen by rheumatology and started on Enbrel injections every Friday. Patient also c/o nausea and constipation, but states she is able to have BMs with medications. She states she had some testing done that came back positive for hep C, but it was repeated and per patient she was told it was a false positive. She also states that she was found to have a fatty liver. Loom Mechanic Required: Yes Loom Mechanic Name: Patricia [id number] Allergies lorazepam [LORAZEPAM] Allergy (Severe, Verified 02/20/23 11:33) DELIRIUM celecoxib [From Celebrex] Allergy (Intermediate, Verified 02/20/23 11:33) ITCHING tramadol [TRAMADOL] Allergy (Intermediate, Verified 02/20/23 11:33) ITCHING zolpidem [Ambien] Allergy (Unknown, Verified 02/20/23 11:33) unknown HPI 6 month f/u HPI Details Assessment & Plan (1) Chronic idiopathic constipation: Code(s): K59.04 - Chronic idiopathic constipation Plan: [place]ian # Enrique Burch Her chart is confusing today, it seems someone took a lot of the dx and the medi cations out so this is confusing. She continues on LInzess 290, bisacodyl, esomeprazole and sucralafate for ther CIC, gERD and chronic gastritis. She has occasional vomiting, it will be preceded by pain after she takes her LInzess and then she will vomit. This is only occasional; however. This may be effected by how much she eats the night before. If this gets worse we will consider if further work up is needed. I ask her to take note if anything is different in her routine or eating on days that the vomiting occurs. She has severe swelling of her wrists and hands with ulnar deviation of the finger joints, and this has been for 3 mos. She has rheum appt , but not until December. I will order some basic screening for inflammatory factors including gout.Her knees also swell and are painful. She is uncertain of the FHX of arthritis disorders, but she knows that her mother and her sister have some sort of arthritis. I am ordering the blood work just to help her get a little ahead with her rheumatology appointment and if it turns out to be something simpler like gout I will probably initiated treatment. ROV 3 mos. (2) GERD (gastroesophageal reflux diseas e): Code(s): K21.9 - Gastro-esophageal reflux disease without esophagitis (3) Chronic gastritis: Code(s): K29.50 - Unspecified chronic gastritis without bleeding (4) Joint swelling: Code(s): M25.40 - Effusion, unspecified joint Orders: Orders Erythrocyte Sedime ntation Rate Today M25.40 - Effusion, unspecified joint Rheumatoid Factor Today M25.40 - Effusion, unspecified joint CRP High Sensitivi ty Today M25.40 - Effusion, unspecified joint Cyclic Citrullinat ed Peptide Today M25.40 - Effusion, unspecified joint Uric Acid Today M25.40 - Effusion, unspecified joint Medications: New linaclotide (Linze ss) 290 mcg PO QAM 30 days 30 caps 6RF K59.04 - Chronic i diopathic constipa tion esomeprazole magne sium 40 mg PO DAILY 30 caps 6RF K21.9 - Gastro-eso phageal reflux dis ease without esoph agitis Refilled bisacodyl 10 mg (2 x 5 mg) P O BEDTIME 60 tabs 6RF K59.04 - Chronic i diopathic constipa tion Labs: Laboratory Tests 10/13/20 10/08/22 01/10/23 10:59 11:23 12:12 Hemoglobin A1c % Total Bilirubin AST ALT Alkaline Phosphata se Lactate Dehydrogen ase 411 H C-Reactive Protein 0.99 H Rheumatoid Factor 15.3 H Cycl Citrul Peptid e IgG <16 01/10/23 01/15/23 12:12 11:08 Hemoglobin A1c % 8.2 H Total Bilirubin 0.2 AST 41 H ALT 33 H Alkaline Phosphata se 131 H Lactate Dehydrogen ase C-Reactive Protein Rheumatoid Factor Cycl Citrul Peptid e IgG Laboratory Tests 01/14/23 11:30 Hepatitis C Ab (EI A) Reactive H Hep C Viral Load <15 NOT DETECTED Hep C Viral Load L og <1.18 NOT DETECTE D TODAY'S VISIT Albanian #[id number] It appears she has a new diagnosis of sero-positive rheumatoid arthritis. This certainly explains the wrist swelling. She has been started on injections for this. She received the LInzess at 290mcg and the esomeprazole and she feels these are controlling her CIC and she also has bisacodyl available. She continues to feel fatigue and body aches. This is most likely from her RA and it takes time for the medication to take full effect. I encouraged her to continue to communicate with her dyed yarn operator about this. ROV 6 mos. PFS Medical History Cholecystitis Elevated liver function tests Intestinal malabsorption following gastrectomy Hyperlipidemia, unspecified Essential hypertension Atherosclerotic cardiovascular disease NSTEMI (non-ST elevated myocardial infarction) Fibromyalgia Folliculitis Anxiety Depression History of myocardial infarction Diabetes type 1, uncontrolled Obesity (BMI 30-39.9) Hyperparathyroidism due to vitamin D deficiency Dyslipidemia 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 Hypertension Rona's disease Hypothyroidism Surgical History History of esophagogastroduodenoscopy (EGD) H/O colonoscopy History of laparoscopic cholecystectomy History of bladder suspension procedure Status post laser cataract surgery of both eyes Hx of appendectomy H/O gastric bypass Family History Father No problems noted. Mother CVA (cerebral vascular accident) Sister Hypertension Brother Hypertension Liver cancer Social History Household Members: None and Unknown / Unable to assess Housing: Apartment Are you a primary career consultant to a significant other at home: No Do you presently have visiting nurse or other home services: Yes Unable to assess alcohol history related to: Unable to respond Alcohol intake: never Patient Tobacco Use Status: Never used Tobacco service: No Current occupational status: disabled Review of Systems Const Denies fatigue, Denies fever(s), Denies night sweats, Denies poor appetite and Denies weight loss ENT Reports Normal hearing present, Denies dental pain, Denies dysphagia, Denies hearing loss, Denies mouth pain, Denies odynophagia, Denies throat swelling, Denies tongue swelling and Reports other (Dentition adequate) Card Reports no additional complaints Resp Reports no additional complaints GI Denies abdominal pain, Denies melena, Denies bloating, Denies hematochezia, Reports constipation, Denies GI cramping, Denies dysphagia, Denies excessive flatus, Denies early satiety, Reports heartburn, Denies diarrhea, Denies nausea, Denies odynophagia, Denies vomiting and Denies hematemesis Musc Reports myalgias, Reports arthralgias and Reports joint swelling Skin/Breast Denies pruritus, Denies lesions, Denies rash and Denies jaundice Neuro Reports Normal hearing present and Denies Abnormal speech present Endo Denies fatigue Aller/Immun Denies throat swelling and Denies tongue swelling Physical Exam Vital Signs: Last Vital Signs Pulse 73 02/20/23 11:23 BP 178/78 H 02/20/23 11:23 BMI result Body Mass Index 33.2 Const General: cooperative, no acute distress, well developed and well groomed Nutritional Appearance: well nourished and obese Orientation/consciousness: oriented to person, oriented to place and oriented to time Limitations: language barrier HEENT Head: Yes normocephalic and Yes atraumatic Eyes General: appearance normal, both eyes and all related structures Pupils: Equal, round and reactive pupils present Neck Neck: Yes normal visual inspection and Yes no lymphadenopathy Thyroid: Thyroid normal Resp Effort & Inspection: normal respiratory effort and able to speak in complete sentences Auscultation: clear to auscultation bilaterally Cardio Rate: regular rate Rhythm: regular rhythm Heart sounds: Normal, physiologic split S2 sound present Peripheral pulses: radial pulses present and posterior tibial pulses present GI Inspection: No distended, No Abdominal panniculus present and Yes obesity Palpation (GI): Soft to palpation, nontender, no guarding, not rigid and No hepatosplenomegaly present Percussion: Yes normal to percussion Auscultation: normal bowel sounds Rectal Exam - Female: deferred Skin General skin exam: no rashes or lesions noted, turgor normal, skin not dry, no jaundice, No spider nevi and no striae Rashes: no rashes Nails: normal Neuro General: oriented to person, oriented to place and oriented to time Cranial nerves: Yes Equal, round and reactive pupils present and Yes Normal hearing present Speech: No Abnormal speech present Extrem General: Yes normal to inspection, No clubbing, No cyanosis and No edema Psych Appearance: grossly normal and well kempt Mental Status: mental status grossly normal Speech and movement: Normal speech and movement present Affect: normal affect Attitude: cooperative Thought process: Normal thought process present and not confabulating Thought content: Normal thought content present Insight: Limited insight present (Psych) Judgement: Limited judgement present (Psych) Assessment & Plan Assessment & Plan (1) GERD (gastroesophageal reflux disease): Code(s): K21.9 - Gastro-esophageal reflux disease without esophagitis (2) Chronic idiopathic constipation: Code(s): K59.04 - Chronic idiopathic constipation Plan Albanian #[id number] It appears she has a new diagnosis of sero-positive rheumatoid arthritis. This certainly explains the wrist swelling. She has been started on injections for this. She received the LInzess at 290mcg and the esomeprazole and she feels these are controlling her CIC and she also has bisacodyl available. She continues to feel fatigue and body aches. This is most likely from her RA and it takes time for the medication to take full effect. I encouraged her to continue to communicate with her dyed yarn operator about this. ROV 6 mos. Coding Level of Care Code Est Pt Level 3 (56781) Diagnoses GERD (gastroesophageal reflux disease) K21.9 Chronic idiopathic constipation K59.04
[2023-02-20 11:23] VITALS: BP 178/78; PULSE 73; BMI 33.2
== END 2023-02-20 11:54 | disposition home or self-care (01) ==
PROVIDERS: PCP Internal Medicine; Visit Provider Nurse Practitioner Family
DX: K21.9 Gastro-esophageal reflux disease without esophagitis (principal); K59.04 Chronic idiopathic constipation
CPT/HCPCS: 99213

== ENCOUNTER → 2023-02-20 10:46 | Outpatient (BNVA) | payer OTHER, SELFPAY | PROVIDERS: PCP Internal Medicine; Visit Provider Nurse Practitioner Family | DX: K21.9 Gastro-esophageal reflux disease without esophagitis (principal); K59.04 Chronic idiopathic constipation; R76.8 Other specified abnormal immunological findings in serum; Z98.84 Bariatric surgery status | CPT/HCPCS: 99212 ==

== ENCOUNTER 2023-03-25 09:51 | Outpatient (REF) | payer OTHER, SELFPAY ==
[2023-03-25 10:17] LABS: MANUAL DIFF FLAG NO
[2023-03-25 11:32] LABS: Basophils Absolute Auto 0.1 X10*3/uL (0.0-0.2); Basophils Percent Auto 0.9 % (0-2); Eosinophils Percent Auto 9.8 % (0-4); Hematocrit 36.8 % (37.0-47.0); Hemoglobin 11.4 g/dl (12.0-16.0); Imm Gran Abs Auto 0.06 X10*3/uL (0.00-0.03); Imm Gran Pct Auto 0.6 % (0.0-0.4); Lymphocytes Absolute Auto 2.6 X10*3/uL (1.2-4.9); Lymphocytes Percent Auto 24.5 % (20-40); Mean Corpuscular Hemoglobin 26.8 pg (27.0-33.0); Mean Corpuscular Volume 86.4 fL (80.0-98.0); Mean Platelet Volume 10.4 fL (9.4-12.3); Monocytes Absolute Auto 0.8 X10*3/uL (0.1-1.2); Monocytes Percent Auto 7.9 % (2-11); Neutrophils Percent Auto 56.3 % (45-73); Platelet Count 279 X10*3/uL (160-400); Red Blood Count 4.26 X10*6/uL (4.20-5.50); Red Cell Distribution Width 14.6 % (11.0-16.0); White Blood Count 10.6 X10*3/uL (4.8-10.8)
[2023-03-25 12:07] LABS: Erythrocyte Sedimentation Rate 56 MM/HR (0-20)
[2023-03-25 13:03] LABS: Alanine Aminotransferase 24 U/L (0-31); Albumin Level 3.7 g/dL (3.5-5.0); Alkaline Phosphatase 114 U/L (39-117); Anion Gap 15 (12-20); Aspartate Amino Transferase 28 U/L (5-31); Bilirubin Total 0.3 mg/dL (0.0-1.0); Blood Urea Nitrogen 13 mg/dL (9-16); C Reactive Protein 11.91 mg/dL (< or = 0.50); Calcium 9.3 mg/dL (8.4-10.2); Carbon Dioxide 26 mmol/L (22-29); Chloride 102 mmol/L (96-108); Estimated Glomerular Filt Rate 51; Glucose Random 223 mg/dL (60-115); Potassium 3.7 mmol/L (3.3-5.1); Sodium 139 mmol/L (135-145); Total Protein 7.1 g/dL (6.5-8.0)
== END 2023-03-25 09:52 | disposition home or self-care (01) ==
LOC: HO.LAB 09:51
PROVIDERS: PCP Internal Medicine; Visit Provider Student in an Organized Health Care Education/Training Program
DX: R76.8 Other specified abnormal immunological findings in serum (principal)
CPT/HCPCS: 36415; 80053; 85025; 85652; 86140

== ENCOUNTER 2023-03-27 10:04 | Outpatient (AMB) | payer OTHER, SELFPAY ==
--- NOTE | 2023-03-27 10:10 | A.OFFVIS_ITS ---
Intake Vital Signs 03/27/23 10:11 Height 4 ft 11 in Weight 160 lb 0.889 oz BMI 32.3 BP 132/70 Blood Pressure Location Rt brachial Position Sitting Pulse 82 Pulse Source Pulse Oximeter Temp 97 F Temp Source Skin Pulse Oximetry (%) 98 Oxygen Delivery Method Room Air Intake Visit Reasons: RA Intake Note: Pt last seen 01/22/23, presents today for follow up and test results. c/o left ring finger pain c/o neck pain Portable Feed Mill Operator Required: Yes Portable Feed Mill Operator Language: Hydroelectric Station Chief Name: [id number] Information Interpreted: clinical only Accompanied by: Daughter Allergies lorazepam [LORAZEPAM] Allergy (Severe, Verified 03/27/23 10:11) DELIRIUM celecoxib [From Celebrex] Allergy (Intermediate, Verified 03/27/23 10:11) ITCHING tramadol [TRAMADOL] Allergy (Intermediate, Verified 03/27/23 10:11) ITCHING zolpidem [Ambien] Allergy (Unknown, Verified 03/27/23 10:11) unknown Medication List - Last Reconciled 03/27/23 by Briseida Rocha MD albuterol sulfate 90 mcg/actuation (Ventolin HFA) 2 puffs PO Q4-6H PRN amlodipine 10 mg PO DAILY aripiprazole 20 mg PO DAILY atorvastatin 20 mg PO DAILY BD Cherelle 2nd Gen Pen Needle (pen needle, diabetic) 5 times a day NS bisacodyl 10 mg (2 x 5 mg) PO BEDTIME blood sugar diagnostic (FreeStyle Lite Strips) 8 times a day blood-glucose meter (FreeStyle Lite Meter kit) As directed blood-glucose meter,continuous (Dexcom G6 Operators Teacher) As directed calcium citrate 400 mg (2 x 200 mg (950 mg)) PO BID carvedilol 6.25 mg PO BID 90 days cholecalciferol (vitamin D3) (Vitamin D3) 50 mcg PO QAM clonazepam 1 tab PO Q8H PRN clopidogrel 75 mg PO QAM cyanocobalamin (vitamin B-12) 1 mL PO .once a month Enbrel SureClick (etanercept) 50 mg subcut QWEEK NS esomeprazole magnesium 40 mg PO DAILY folic acid 1 mg PO DAILY gabapentin mg PO glucagon 3 mg/actuation (Baqsimi) 3 mg intranasal ONCE 30 days hydroxyzine HCl 10 mg PO Q8H PRN insulin aspart (niacinamide) 100 unit/mL (3 mL) (Fiasp FlexTouch U-100 Insulin) 2 - 14 units subcut QID insulin degludec (Tresiba FlexTouch U-100 insulin) 30 units (0.3 mL) subcut DAILY insulin syringe-needle U-100 (BD Insulin Syringe Ultra-Fine) As directed 3 times per day levothyroxine 100 mcg PO QAM lidocaine-prilocaine 2.5-2.5 % topical DAILY linaclotide (Linzess) 290 mcg PO QAM 30 days losartan 50 mg PO QAM meloxicam 15 mg PO DAILY prazosin 6 mg PO BEDTIME sucralfate 10 mL PO BID venlafaxine ER (Effexor XR) 150 mg PO DAILY HPI HPI Comments History of Present Illness Details 73-year-old female with seropositive RA returns for follow-up. Patient was having a flu-like illness last 1-2 weeks, she has recovered now. COVID test was negative. She stated that she recently buried her son who in his 40s from an asthma attack. She has been using Enbrel for the last 4 weeks. She states that her joint pain is about the same. Today her most bothersome joint is her left ring finger. Initial history : This is a 72-year-old female who presents for evaluation of joint pain. Patient states that she started having pain and swelling of her hands and feet, ankles over the last 6 months associated with morning stiffness lasting 10 minutes. She has had back pain for years. Meloxicam is not helpful. She is unaware of any family history of autoimmune rheumatic disease. She denies any skin rashes. Denies any history of DVT/PE or recurrent abortions. [facility] Medical History Cholecystitis Elevated liver function tests Intestinal malabsorption following gastrectomy Hyperlipidemia, unspecified Essential hypertension Atherosclerotic cardiovascular disease NSTEMI (non-ST elevated myocardial infarction) Fibromyalgia Folliculitis Anxiety Depression History of myocardial infarction Diabetes type 1, uncontrolled Obesity (BMI 30-39.9) Hyperparathyroidism due to vitamin D deficiency Dyslipidemia 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 Hypertension Rona's disease Hypothyroidism Surgical History History of esophagogastroduodenoscopy (EGD) H/O colonoscopy History of laparoscopic cholecystectomy History of bladder suspension procedure Status post laser cataract surgery of both eyes Hx of appendectomy H/O gastric bypass Family History Father No problems noted. Mother CVA (cerebral vascular accident) Sister Hypertension Brother Hypertension Liver cancer Social History Household Members: None and Unknown / Unable to assess Housing: Apartment Are you a primary rn acute care to a significant other at home: No Do you presently have visiting nurse or other home services: Yes Unable to assess alcohol history related to: Unable to respond Alcohol intake: never Patient Tobacco Use Status: Never used Tobacco service: No Current occupational status: disabled Review of Systems Musc Reports back pain, Reports arthralgias, Reports joint swelling, Reports limited range of motion and Reports stiffness Physical Exam Vital Signs: Last Vital Signs Temp 97 F 03/27/23 10:11 Pulse 82 03/27/23 10:11 BP 132/70 03/27/23 10:11 Pulse Ox 98 03/27/23 10:11 Oxygen Delivery Method Room Air 03/27/23 10:11 BMI result Body Mass Index 32.3 Const General: cooperative, healthy appearing and comfortable Nutritional Appearance: obese Orientation/consciousness: patient oriented x3 Limitations: no limitations HEENT Head: Yes normocephalic and Yes atraumatic Resp Effort & Inspection: normal respiratory effort and able to speak in complete sentences Neuro General: patient oriented x3 Extrem Other: Prominent RA deformities in both hands Diffuse MCP swelling bilaterally, ulnar deviation at the MCPs left hand Diffuse PIP swelling and tenderness bilaterally Triggering of left ring finger Painful range of motion of both shoulders No knee pain, swelling or warmth No ankle swelling or tenderness bilaterally No MTP tenderness and negative MTP squeeze test bilaterally Normal nailfold capillaroscopy Kyphotic Office Procedures Tendon Injection Tendon Injection Details: With patient's consent, The palm of the left hand was prepped with ChloraPrep and alcohol. Under topical ethyl chloride spray the [4th] flexor tendon sheath was injected with 20 mg of triamcinolone and 0.2 cc of 1% lidocaine. The patient tolerated the procedure without any acute complications. [id number] Tendon Sheath Injection All charges added?: Procedure code (CPT) selection complete Results Reviewed Results Reviewed: Labs 08/2022 SUASN 1-12 80 fine speckled Labs 09/2022 RF 15.3 ( <13.0) SUSAN 1-640 fine speckled CCP negative Assessment & Plan Assessment & Plan (1) Seropositive rheumatoid arthritis: Comment: +RF -ve CCP dx 02/10 Enbrel 02/2023 Code(s): M05.9 - Rheumatoid arthritis with rheumatoid factor, unspecified Plan: This is a 73-year-old female with seropositive RA who returns for follow-up. She started Enbrel about a month ago. She feels about the same. On exam today she has fewer tender joints. Her inflammatory markers are significantly elevated but patient was recovering from a flu-like illness. Continue Enbrel 50 mg weekly Labs before next visit in 1 month. If no improvement, will consider switching DMARDs (2) Screening for osteoporosis: Code(s): Z13.820 - Encounter for screening for osteoporosis Plan: Kyphotic on exam. ordered a DEXA scan to evaluate for osteoporosis, scheduled for May 2023 (3) Hepatitis C antibody positive in blood: Code(s): R76.8 - Other specified abnormal immunological findings in serum Plan: Positive hepatitis-C antibody with negative hep C RNA. Labs in 2021 showed negative hepatitis-C antibody. Unclear cause. Patient might have cleared hepatitis C infection or a lab error. (4) High risk medication use: Code(s): Z79.899 - Other long-term (current) drug therapy Plan: Side effects of Enbrel were discussed with the patient in detail including increased risk of infection, demyelinating disease, reactivation of latent TB, possible increased risk of solid and skin tumors. Patient fully aware. Advised patient to seek medical care JEFFREY if patient has an infection and advised patient to stop the medication until the infection is resolved. (5) Trigger finger, left ring finger: Code(s): M65.342 - Trigger finger, left ring finger Plan: With patient's consent, left ring finger was injected with Kenalog today. Plan I spent 46 minutes reviewing patient's chart, evaluating patient, ordering diagnostic workup, counseling patient and documenting in the chart Orders: Orders 2 Complete Blood Count Auto Diff 1 Month M05.9 - Rheumatoid arthritis with rheumatoid factor, unspecified Comprehensive Met. Panel Today M05.9 - Rheumatoid arthritis with rheumatoid factor, unspecified C Reactive Protein Today M05.9 - Rheumatoid arthritis with rheumatoid factor, unspecified Erythrocyte Sedimentation Rate Today M05.9 - Rheumatoid arthritis with rheumatoid factor, unspecified AMB Injection-Tendon Today M65.342 - Trigger finger, left ring finger Coding Level of Care Code Est Pt Level 5 (71456) Diagnoses Seropositive rheumatoid arthritis M05.9 Screening for osteoporosis Z13.820 Hepatitis C antibody positive in blood R76.8 High risk medication use Z79.899 Trigger finger, left ring finger M65.342 CPT Codes Tendon Injection - Tendon Injection 1: [id number] Tendon Sheath Injection ([id number])
[2023-03-27 10:11] VITALS: BP 132/70; PULSE 82; TEMP 36.1; O2SAT 98; BMI 32.3
== END 2023-03-27 11:03 | disposition home or self-care (01) ==
PROVIDERS: PCP Internal Medicine; Visit Provider Student in an Organized Health Care Education/Training Program
DX: M05.79 Rheumatoid arthritis with rheumatoid factor of multiple sites without organ or systems involvement (principal); Z13.820 Encounter for screening for osteoporosis; R76.8 Other specified abnormal immunological findings in serum; Z79.899 Other long term (current) drug therapy; M65.342 Trigger finger, left ring finger
CPT/HCPCS: 20550; 99215

== ENCOUNTER → 2023-03-27 10:04 | Outpatient (BNVA) | payer OTHER, SELFPAY | PROVIDERS: PCP Internal Medicine; Visit Provider Student in an Organized Health Care Education/Training Program | DX: M65.342 Trigger finger, left ring finger (principal); M05.9 Rheumatoid arthritis with rheumatoid factor, unspecified; R76.8 Other specified abnormal immunological findings in serum; Z13.820 Encounter for screening for osteoporosis; Z79.899 Other long term (current) drug therapy | CPT/HCPCS: 20550; 99212 ==

== ENCOUNTER 2023-04-07 10:14 | Outpatient (AMB) | payer OTHER, SELFPAY ==
--- NOTE | 2023-04-07 11:16 | MHC.AMDMED ---
Intake Intake Visit Reasons: DM/CONFIRMED Field Adjuster Required: Yes Field Adjuster Language: Director Of Instructional Technology Name: Keara [facility] Accompanied by: Other Relationship Allergies lorazepam [LORAZEPAM] Allergy (Severe, Verified 03/27/23 10:11) DELIRIUM celecoxib [From Celebrex] Allergy (Intermediate, Verified 03/27/23 10:11) ITCHING tramadol [TRAMADOL] Allergy (Intermediate, Verified 03/27/23 10:11) ITCHING zolpidem [Ambien] Allergy (Unknown, Verified 03/27/23 10:11) unknown HPI Comprehensive Diabetes Asmnt Most Recent Diabetes Results: Hemoglobin A1c 6.7 % 04/24/18 Microalb/Creat Ratio 16.8 ug/mg cr 07/17/21 Cholesterol 178 mg/dL 12/19/21 HDL Cholesterol 48 mg/dL 12/19/21 Triglycerides 159 mg/dL 12/19/21 Creatinine 1.05 mg/dL (0.5-1.4) 03/25/23 Blood Urea Nitrogen 13 mg/dL (9-16) 03/25/23 Sodium 139 mmol/L (135-145) 03/25/23 Potassium 3.7 mmol/L (3.3-5.1) 03/25/23 Chloride 102 mmol/L (96-108) 03/25/23 Carbon Dioxide 26 mmol/L (22-29) 03/25/23 Calcium 9.3 mg/dL (8.4-10.2) 03/25/23 AST 28 U/L (5-31) 03/25/23 ALT 24 U/L (0-31) 03/25/23 Total Protein 7.1 g/dL (6.5-8.0) 03/25/23 Albumin 3.7 g/dL (3.5-5.0) 03/25/23 [facility] Medical History Cholecystitis Elevated liver function tests Intestinal malabsorption following gastrectomy Hyperlipidemia, unspecified Essential hypertension Atherosclerotic cardiovascular disease NSTEMI (non-ST elevated myocardial infarction) Fibromyalgia Folliculitis Anxiety Depression History of myocardial infarction Diabetes type 1, uncontrolled Obesity (BMI 30-39.9) Hyperparathyroidism due to vitamin D deficiency Dyslipidemia 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 Hypertension Rona's disease Hypothyroidism Surgical History History of esophagogastroduodenoscopy (EGD) H/O colonoscopy History of laparoscopic cholecystectomy History of bladder suspension procedure Status post laser cataract surgery of both eyes Hx of appendectomy H/O gastric bypass Family History Father No problems noted. Mother CVA (cerebral vascular accident) Sister Hypertension Brother Hypertension Liver cancer Social History Household Members: None and Unknown / Unable to assess Housing: Apartment Are you a primary personal care aide to a significant other at home: No Do you presently have visiting nurse or other home services: Yes Unable to assess alcohol history related to: Unable to respond Alcohol intake: never Patient Tobacco Use Status: Never used Tobacco service: No Current occupational status: disabled Assessment & Plan Assessment & Plan (1) Diabetes type 1, uncontrolled: Code(s): E10.65 - Type 1 diabetes mellitus with hyperglycemia Qualifiers: Glycemic state: with hypoglycemia Coma presence: without coma Qualified Code(s): E10.649 - Type 1 diabetes mellitus with hypoglycemia without coma Plan: Personal Continuous Glucose Monitor: Patients CGM information reviewed Reviewed patient's sensor data: Hypoglycemia: ? 0% Hyperglycemia:? 81% Time in Range:? 19% Average glucose for the last 2 weeks? 252 mg/dL patient reports she had prednisone injection for trigger finger pain on left hand approximately 2 weeks patient also reports that her son in February 2023 which she believes is contributing to pattern of hyperglycemia. at last visit patient was having 10% hypoglycemia which has resolved since reducing Tresiba dose from 30 units to 18 units as prescribed at today's visit recommended to increase Tresiba dose to 22 units. Today we had extensive conversation regarding, the effects of hyperglycemia patient denies missing frequent mealtime doses of insulin, patient takes the Fiasp 12 units before meals with correction scale. 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 Patient has upcoming visit Dr. Sprague 04/17/2023 Reviewed how to interpret trend arrows Reminded patient that to check finger sticks if symptoms do not match sensor reading. Discussed lag time between finger stick and sensor data.? Patient able to insert sensor independently at home without issue.? Patient Instructions: Medicamentos para la diabetes: Tresiba 22 unidades Fiasp 12 unidades antes del desayuno cada comida y unidades antes de los batidos de prote?renay solamente Escala de correcci?n Fiasp: 200-250 mg por dL 2 unidades 251-300 mg/dL 3 unidades 301-350 mg/dL 4 unidades 351-400 mg por dL 5 unidades M?s de 400 mg por dL 6 unidades. Coding Level of Care Code Est Pt Level 1 (20718) Diagnoses Uncontrolled type 1 diabetes mellitus with hypoglycemia without coma E10.649 Glycemic state: with hypoglycemia Coma presence: without coma
== END 2023-04-07 11:19 | disposition home or self-care (01) ==
PROVIDERS: PCP Internal Medicine; Visit Provider Registered Nurse Diabetes Educator
DX: E10.649 Type 1 diabetes mellitus with hypoglycemia without coma (principal)

== ENCOUNTER → 2023-04-07 10:14 | Outpatient (BNVA) | payer OTHER, SELFPAY | PROVIDERS: PCP Internal Medicine; Visit Provider Registered Nurse Diabetes Educator | DX: E10.649 Type 1 diabetes mellitus with hypoglycemia without coma (principal) | CPT/HCPCS: 99211 ==

== ENCOUNTER 2023-04-10 10:51 | Emergency (ER) | payer OTHER, SELFPAY ==
[2023-04-10] VITALS (9 sets, daily range): BP systolic 133–193; BP diastolic 72–87; PULSE 74–95; RESP 15–20; TEMP 36.9–37.1; O2SAT 95–100; BMI 33.2
--- NOTE | ~2023-04-10 | XR_ITS ---
EXAMINATION: XR CHEST CLINICAL INFORMATION: Acute chest pain with shortness of breath COMPARISON: 11/29/2021 chest radiograph TECHNIQUE: 2 views of the chest were obtained. FINDINGS: The lungs are hypoexpanded. Heart size within normal limits given technique. No infiltrates or lung masses are seen. The posterior costophrenic angles are mildly blunted consistent with trace bilateral pleural effusions. XR/XR chest 2V IMPRESSION: Hypoexpanded lungs with trace bilateral pleural effusions.
--- NOTE | 2023-04-10 11:04 | ECG_ITS ---
Test Reason : SOB Blood Pressure : / mmHG Vent. Rate : 081 BPM Atrial Rate : 081 BPM P-R Int : 144 ms QRS Dur : 090 ms QT Int : 376 ms P-R-T Axes : 034 037 091 degrees QTc Int : 436 ms Normal sinus rhythm Nonspecific T wave abnormality Abnormal ECG When compared with ECG of 29-NOV-2021 10:57, No significant change was found Referred By: Generic ED Physician Electronically Signed By:RAMY MAYER MD
--- NOTE | 2023-04-10 11:20 | PC.NURSE ---
Pt a&ox4 coming in for cough sob, throat pain, dizziness, and headache that started about a week ago. Expiratory wheezes heard through out lung jackson. Skin PWD. Uses walker at baseline. Denies neo campuzano.
--- NOTE | 2023-04-10 11:53 | ED.URI ---
HPI - URI/Sore Throat General Chief Complaint: Upper Respiratory Symptoms Stated Complaint: SOB,COUGH,GARCIA,DIZZY PER EMS Time Seen by Provider: 04/10/23 11:34 Source: patient, family (son) and enrobing machine corder Mode of arrival: EMS Limitations: no limitations History of Present Illness HPI Narrative: 73-year-old female with pmhx significant for rheumatoid arthritis, GERD, T1DM, anemia, HDL, HTN, NSTEMI (5 yrs ago), anxiety, depression, asthma, hyperparathyroidism, Rona disease, presents to the ED today with a complaint of cough, headache, and shortness of breath x3 days. Admits to chest discomfort substernally on coughing. Denies chest pain. States that she used to have an albuterol inhaler at home however she ran out of this a while ago. Denies recent sick contacts. Denies recent travel or long car rides. Denies fever, chills, sore throat, nausea or vomiting, lower extremity pain or swelling. Related Data Home Medications Medication Instructions Recorded Confirmed venlafaxine 150 mg 150 mg PO DAILY 01/28/20 03/27/23 capsule,extended release 24 hr (Effexor XR) hydroxyzine HCl 10 mg tablet 10 mg PO Q8H PRN Anxiety 02/22/20 03/27/23 clonazepam 0.5 mg tablet 1 tab PO Q8H PRN anxiety 01/02/21 03/27/23 albuterol sulfate 90 mcg/actuation 2 puff PO Q4-6H PRN Shortness Of 10/19/21 03/27/23 aerosol inhaler (Ventolin HFA) Breath Or Wheezing losartan 50 mg tablet 50 mg PO QAM 10/19/21 03/27/23 blood-glucose meter,continuous 01/11/22 03/27/23 (Dexcom G6 German Professor) amlodipine 10 mg tablet 10 mg PO DAILY 05/14/22 03/27/23 prazosin 2 mg capsule 6 mg PO BEDTIME 05/14/22 03/27/23 cyanocobalamin (vitamin B-12) 1 ml PO .once a month 08/07/22 03/27/23 1,000 mcg/mL oral drops levothyroxine 100 mcg tablet 100 mcg PO QAM 08/07/22 03/27/23 meloxicam 15 mg tablet 15 mg PO DAILY 10/08/22 03/27/23 sucralfate 100 mg/mL oral 10 ml PO BID 10/08/22 03/27/23 suspension aripiprazole 20 mg tablet 20 mg PO DAILY 01/10/23 03/27/23 gabapentin 100 mg capsule mg PO 01/10/23 03/27/23 lidocaine-prilocaine 2.5 %-2.5 % topical DAILY 01/10/23 03/27/23 topical cream atorvastatin 20 mg tablet 20 mg PO DAILY 02/20/23 03/27/23 Previous Rx's Medication Instructions Recorded insulin syringe-needle U-100 0.3 #100 ea 06/13/20 mL 31 gauge x 5/16 (BD Insulin Syringe Ultra-Fine) blood sugar diagnostic (FreeStyle #200 ea 05/06/22 Lite Strips) folic acid 1 mg tablet 1 mg PO DAILY #90 tabs 05/19/22 blood-glucose meter (FreeStyle #1 ea 05/20/22 Lite Meter kit) bisacodyl 5 mg tablet,delayed 10 mg (2 x 5 mg) PO BEDTIME #60 10/08/22 release tabs esomeprazole magnesium 40 mg 40 mg PO DAILY #30 caps 10/08/22 capsule,delayed release linaclotide 290 mcg capsule 290 mcg PO QAM 30 days #30 caps 10/08/22 (Linzess) BD Cherelle 2nd Gen Pen Needle 32 #200 ea 10/16/22 gauge x 5/32 (pen needle, diabetic) glucagon 3 mg/actuation nasal 3 mg intranasal ONCE unresponsive 11/08/22 spray (Baqsimi) hypoglycemia 30 days #2 ea insulin aspart 2 - 14 unit subcut QID #15 mL 12/24/22 (niacinamide)(U-100) 100 unit/mL(3 mL) subcutaneous pen (Fiasp FlexTouch U-100 Insulin) calcium citrate 200 mg (950 mg) 400 mg (2 x 200 mg (950 mg)) PO 01/01/23 tablet BID #120 tabs Enbrel SureClick 50 mg/mL (1 mL) 50 mg subcut QWEEK #4 mL 01/28/23 subcutaneous pen injector (etanercept) cholecalciferol (vitamin D3) 50 50 mcg PO QAM #30 caps 01/31/23 mcg (2,000 unit) capsule (Vitamin D3) carvedilol 6.25 mg tablet 6.25 mg PO BID 90 days #180 tabs 03/03/23 clopidogrel 75 mg tablet 75 mg PO QAM #30 tabs 03/05/23 insulin degludec 100 unit/mL (3 30 unit (0.3 mL) subcut DAILY #15 03/17/23 mL) subcutaneous pen (Tresiba mL FlexTouch U-100 insulin) albuterol sulfate 90 mcg/actuation 2 puff inhalation Q4-6H PRN 04/10/23 aerosol inhaler shortness of breath or wheezing #8.5 grams prednisone 20 mg tablet 40 mg (2 x 20 mg) PO DAILY #10 tabs 04/10/23 Allergies Allergy/AdvReac Type Severity Reaction Status Date / Time lorazepam [LORAZEPAM] Allergy Severe DELIRIUM Verified 03/27/23 10:11 celecoxib [From Celebrex] Allergy Intermediate ITCHING Verified 03/27/23 10:11 tramadol [TRAMADOL] Allergy Intermediate ITCHING Verified 03/27/23 10:11 zolpidem [Ambien] Allergy Unknown unknown Verified 03/27/23 10:11 Review of Systems Review of Systems: Constitutional: No fever, chills, fatigue, night sweats, weight changes ENT/Mouth: No ear pain, hearing loss, nasal congestion, sinus pain, rhinorrhea, sore throat Eyes: No eye pain, swelling, redness, vision changes, discharge Cardio: No chest pain, No palpitations, MIRANDA, orthopnea, peripheral edema Pulm: +SOB, +cough, No sputum, wheezing, dyspnea, hemoptysis GI: No nausea, vomiting, hematemesis, abdominal pain, diarrhea, constipation, hematochezia, melena : No irregular bleeding, dysuria, frequency, urgency, hesitancy, hematuria, flank pain, urinary flow changes, urinary incontinence or retention MSK: No back pain, neck pain, joint pain, myalgias Skin: No lesions, rashes Neuro: No weakness, numbness, paresthesias, LOC, dizziness, headache All other systems reviewed and are negative. [facility] Past Medical History Attestation statement: The following information was validated with the patient. Source: old records reviewed and nursing notes reviewed Medical History Cholecystitis Elevated liver function tests Intestinal malabsorption following gastrectomy Hyperlipidemia, unspecified Essential hypertension Atherosclerotic cardiovascular disease NSTEMI (non-ST elevated myocardial infarction) Fibromyalgia Folliculitis Anxiety Depression History of myocardial infarction Diabetes type 1, uncontrolled Obesity (BMI 30-39.9) Hyperparathyroidism due to vitamin D deficiency Dyslipidemia 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 Hypertension Rona's disease Hypothyroidism Surgical History History of esophagogastroduodenoscopy (EGD) H/O colonoscopy History of laparoscopic cholecystectomy History of bladder suspension procedure Status post laser cataract surgery of both eyes Hx of appendectomy H/O gastric bypass Family History Family History Father No problems noted. Mother CVA (cerebral vascular accident) Sister Hypertension Brother Hypertension Liver cancer Social History Social History Household Members: None and Unknown / Unable to assess Housing: Apartment Are you a primary career and technology education teacher to a significant other at home: No Do you presently have visiting nurse or other home services: Yes Unable to assess alcohol history related to: Unable to respond Alcohol intake: never Patient Tobacco Use Status: Never used Tobacco service: No Current occupational status: disabled Physical Exam Vital Signs: Vital Signs: Last Vital Signs Temp 98.4 F 04/10/23 13:27 Pulse 90 04/10/23 18:00 Resp 18 04/10/23 18:00 BP 133/79 04/10/23 18:00 Pulse Ox 100 04/10/23 18:00 O2 Del Method Room Air 04/10/23 18:00 BMI result Body Mass Index 33.2 Vital signs stable Const: General: cooperative, comfortable, no acute distress, alert and awake Orientation/consciousness: patient oriented x3 Limitations: no limitations HEENT: Head: Yes normal to inspection Ears: hearing grossly normal bilaterally, external ears normal, TM's normal bilaterally, EAC's normal, mastoids normal and no periauricular adenopathy General nose exam: Normal external nose present and Normal nares present Face and sinus: Yes normal facial exam and Yes sinuses nontender Eyes: General: appearance normal, both eyes and all related structures Conjunctivae: conjunctivae normal Sclerae: sclerae normal Pupils: Equal, round and reactive pupils present EOM: EOMs intact bilaterally Neck: Neck: Yes normal visual inspection, Yes full ROM, Yes no lymphadenopathy and Yes no JVD Resp: Other: + bilateral inspiratory and expiratory wheezes Effort & Inspection: normal respiratory effort, able to speak in complete sentences, Actively coughing, no respiratory distress, no tripod positioning and no use of accessory muscles Cardio: Rate: regular rate Rhythm: regular rhythm Peripheral pulses: radial pulses present GI: Inspection: Yes normal to inspection Palpation (GI): Soft to palpation and nontender Skin: General skin exam: no rashes or lesions noted Neuro: General: patient oriented x3, gait normal and moves all extremities Cranial nerves: Yes Equal, round and reactive pupils present Extrem: Other: + no peripheral edema + no calf tenderness General: Yes normal to inspection and Yes full ROM Course Course Course Narrative: 1336-- CBC without leukocytosis or anemia. POC originally 51. Patient was given 2 sandwiches, repeat POC 106. Troponin elevated to 39.3 > will repeat to r/o ACS. BNP WNL. EKG showing normal sinus rhythm with a ventricular rate of 81 beats per minute, QT 376, QTC 436, no acute ischemic changes or ST elevations. > patient evaluated by respiratory therapy, was administered 5 mg DuoNeb for inspiratory and expiratory wheezing. Patient reports improvement in SOB with breathing treatment. Lungs CTA bilaterally on re-evaluation. 1645-- repeat troponin 42.6 > unlikely ACS. CXR showing hypoexpanded lungs with trace bilateral pleural effusions. Patient is not hypoxic. She is afebrile. There is no pedal edema to suggest fluid overload. Awaiting viral serology. 1700-- At the end of my shift, patient's vital signs are stable. Sign out give to my colleague Bo GONZALEZ pending viral serology and disposition. Reevaluation(s) Reevaluation #1: Patient re-evaluated, vital signs remain stable. I reviewed her workup, the patient did test positive for RSV. I gave her a dose of Solu-Medrol I will discharge her with albuterol and prednisone to help with asthma exacerbation in the setting of RSV. Time: 18:34 Medications Administered Discontinued Medications Generic Name Dose Route Start Last Admin Trade Name Freq PRN Reason Stop Dose Admin Acetaminophen 975 mg 04/10/23 16:05 04/10/23 16:13 Acetaminophen 325 Mg Tablet PO 04/10/23 16:06 975 mg ONCE ONE Administration Albuterol/Ipratropium 3 ml 04/10/23 17:45 04/10/23 17:49 Albuterol/Iprat 2.5/0.5mg 3 Ml Ampul.Neb INHALE 04/10/23 17:46 3 ml ONCE ONE Administration Albuterol Sulfate 2.5 mg/ 0 mg 04/10/23 12:28 04/10/23 12:42 Albuterol/Ipratropium 3 ml INHALE 04/10/23 12:29 5 dose ONCE ONE Administration Methylprednisolone Sodium Succinate 125 mg 04/10/23 17:59 04/10/23 18:10 Methylprednisolone Sod Succ 125 Mg/2 Ml Vial IVPUSH 04/10/23 18:00 125 mg ONCE ONE Administration Medical Decision Making Medical Decision Making [facility] [place] Narrative: 73-year-old female with pmhx significant for rheumatoid arthritis, GERD, T1DM, anemia, HDL, HTN, NSTEMI (5 yrs ago), anxiety, depression, asthma, hyperparathyroidism, Rona disease, presents to the ED today with a complaint of cough, headache, and shortness of breath x3 days. Vital signs stable, afebrile, not hypoxic. Patient is nontoxic appearing and in no acute distress. She is sitting in bed eating a sandwich. Bilateral lungs with inspiratory and expiratory wheezes. RRR. Abdomen soft, nontender, nondistended. No rebound tenderness or guarding. No peripheral edema. No JVD. No calf tenderness bilaterally. Clinical concern for asthma exacerbation, pneumonia, viral syndrome, pleural effusion, anemia, electrolyte abnormality, hypoglycemia. Unlikely pulmonary embolism, heart failure, ACS, arrhythmia, dissection, CVA/TIA, cerebellar stroke. Plan for labs, serology, stroke, EKG, chest x-ray, breathing treatment, re-evaluation. Differential Diagnosis Differential Diagnoses: The differential diagnosis associated with the presentation includes As above. Admission/Observation Consideration of admission/observation: Escalation of care including admission/observation considered In this patient with a history of NSTEMI presenting with shortness of breath and chest discomfort, admission was considered. Lab Data [facility] [place] Lab Attestation statement: I reviewed the patient's lab results. As above. 04/10/23 12:38 04/10/23 12:38 Labs: Lab Results 04/10/23 04/10/23 04/10/23 Range/Units 11:59 12:32 12:38 WBC 9.9 (4.8-10.8) X10*3/uL RBC 4.52 (4.20-5.50) X10*6/uL Hgb 12.2 (12.0-16.0) g/dl Hct 38.8 (37.0-47.0) % MCV 85.8 (80.0-98.0) fL MCH 27.0 (27.0-33.0) pg MCHC 31.4 (31.0-35.0) g/dl RDW 15.2 (11.0-16.0) % Plt Count 229 (160-400) X10*3/uL MPV 10.3 (9.4-12.3) fL Immature Gran % (Auto) 0.5 H (0.0-0.4) % Neut % (Auto) 43.9 L (45-73) % Lymph % (Auto) 28.6 (20-40) % [place] % (Auto) 13.5 H (2-11) % Eos % (Auto) 12.3 H (0-4) % Baso % (Auto) 1.2 (0-2) % Lymph # (Auto) 2.8 (1.2-4.9) X10*3/uL [place] # (Auto) 1.3 H (0.1-1.2) X10*3/uL Eos # (Auto) 1.2 H (0.0-0.4) X10*3/uL Baso # (Auto) 0.1 (0.0-0.2) X10*3/uL Abs Immat Gran (auto) 0.05 H (0.00-0.03) X10*3/uL Absolute Neuts (auto) 4.3 (2.0-8.3) x10*3/uL Absolute Nucleated RBC 0.000 (0.0-0.012) X10*3/uL Nucleated RBC % (auto) 0.0 (0.0-0.2) /100WBC PT 10.3 L (11.1-13.3) SEC INR 0.8 L (0.9-1.1) Sodium 142 (135-145) mmol/L Potassium 4.1 (3.3-5.1) mmol/L Chloride 103 (96-108) mmol/L Carbon Dioxide 31 H (22-29) mmol/L Anion Gap 12 (12-20) BUN 17 H (9-16) mg/dL Creatinine 1.22 (0.5-1.4) mg/dL Estim Creat Clear Calc 33.1 Estimated GFR 43 POC Glucose 51 L* 106 (60-115) mg/dL Random Glucose 92 (60-115) mg/dL Calcium 9.6 (8.4-10.2) mg/dL Magnesium 2.2 (1.6-2.6) mg/dL Troponin I High Sens 39.3 H (<3.5-17.0) ng/L B-Natriuretic Peptide 11 (<100) pg/mL Lipase 16 (8-78) U/L Influenza Type A (PCR) (Negative) Influenza Type B (PCR) (Negative) RSV RNA Qual (PCR) (Negative) SARS-CoV-2 RNA (RT-PCR) (Negative) 04/10/23 04/10/23 04/10/23 Range/Units 15:48 16:19 17:22 WBC (4.8-10.8) X10*3/uL RBC (4.20-5.50) X10*6/uL Hgb (12.0-16.0) g/dl Hct (37.0-47.0) % MCV (80.0-98.0) fL MCH (27.0-33.0) pg MCHC (31.0-35.0) g/dl RDW (11.0-16.0) % Plt Count (160-400) X10*3/uL MPV (9.4-12.3) fL Immature Gran % (Auto) (0.0-0.4) % Neut % (Auto) (45-73) % Lymph % (Auto) (20-40) % [place] % (Auto) (2-11) % Eos % (Auto) (0-4) % Baso % (Auto) (0-2) % Lymph # (Auto) (1.2-4.9) X10*3/uL [place] # (Auto) (0.1-1.2) X10*3/uL Eos # (Auto) (0.0-0.4) X10*3/uL Baso # (Auto) (0.0-0.2) X10*3/uL Abs Immat Gran (auto) (0.00-0.03) X10*3/uL Absolute Neuts (auto) (2.0-8.3) x10*3/uL Absolute Nucleated RBC (0.0-0.012) X10*3/uL Nucleated RBC % (auto) (0.0-0.2) /100WBC PT (11.1-13.3) SEC INR (0.9-1.1) Sodium (135-145) mmol/L Potassium (3.3-5.1) mmol/L Chloride (96-108) mmol/L Carbon Dioxide (22-29) mmol/L Anion Gap (12-20) BUN (9-16) mg/dL Creatinine (0.5-1.4) mg/dL Estim Creat Clear Calc Estimated GFR POC Glucose 174 H (60-115) mg/dL Random Glucose (60-115) mg/dL Calcium (8.4-10.2) mg/dL Magnesium (1.6-2.6) mg/dL Troponin I High Sens 42.6 H (<3.5-17.0) ng/L B-Natriuretic Peptide (<100) pg/mL Lipase (8-78) U/L Influenza Type A (PCR) NEGATIVE (Negative) Influenza Type B (PCR) NEGATIVE (Negative) RSV RNA Qual (PCR) POSITIVE A (Negative) SARS-CoV-2 RNA (RT-PCR) NEGATIVE (Negative) Independent Interpretation I performed an independent interpretation of an: EKG and Plain X-Ray Interpretation: EKG showing NSR with a ventricular rate of 81 beats per minute, QT 376, QTC 436, no acute ischemic changes or ST elevations. Chest x-ray without infiltrates or consolidations, agree with radiologist's interpretation. Radiology Impression Discussion of test interpretation with radiology: I have reviewed the radiologist's reading. Radiologist Impression: XR chest 2V IMPRESSION: Hypoexpanded lungs with trace bilateral pleural effusions. Independent Historian Clinical information obtained from an independent historian. History obtained from or confirmed by: Other (son) External Record Review External record reviewed: Inpatient record, Office record, Outpatient record, Prior outpatient labs, Prior outpatient radiology, Primary care record and Outside ED record Prescription Management I considered prescription management with: Pain Medication Chronic Conditions Patient?s care impacted by: Diabetes, Hypertension and Other (Myocardial infarction) Social Determinants Patient?s care significantly limited by Social Determinants of Health including: Other Social Determinant of Health Critical Care Time Critical Care Time Critical Care Time: No Discharge Plan Discharge Clinical Impression: Pleural effusion, bilateral, Asthma, Respiratory syncytial virus (RSV) Patient Disposition: Home, Self-Care Instructions: Asthma (ED), Pleural Effusion (ED), Wheezing (ED) Additional Instructions: Your labs today were normal. You tested positive for RSV but negative for COVID, flu Your EKG was normal. Your chest x-ray shows a small amount of fluid within the lining of the lung. This is likely not the cause of your symptoms today. Take prednisone 40 mg daily for the next 5 days Use albuterol every 4-6 hours as needed for wheezing and shortness of breath Please follow-up with cardiology regarding the findings on your chest x-ray. If you do not have a meter reader chief, a referral has been provided to you. And albuterol inhaler has been sent to your pharmacy to use when he become short of breath. Do not take more than 2 puffs every 20 minutes as this can cause your heart rate to increase, causing further problems. If you use your inhaler and do not find that your symptoms are improving, please return to the emergency department. Also follow-up with your primary care provider. If symptoms persist or worsen please return to the emergency department. The case of an emergency call 911. Prescriptions: New prednisone 20 mg tablet 40 mg PO DAILY Qty: 10 0RF albuterol sulfate 90 mcg/actuation HFA aerosol inhaler 2 puff inhalation Q4-6H PRN (Reason: shortness of breath or wheezing) Qty: 8.5 0RF No Action (DME) insulin syringe-needle U-100 [BD Insulin Syringe Ultra-Fine] 0.3 mL 31 gauge x 5/16 syringe See Rx Instructions .ROUTE .MEDSUPPLY Qty: 100 0RF Rx Instructions: As directed 3 times per day (DME) FreeStyle Lite Strips Strip See Rx Instructions .ROUTE .MEDSUPPLY Qty: 200 11RF Rx Instructions: 8 times a day (DME) blood-glucose meter [FreeStyle Lite Meter] Kit See Rx Instructions .ROUTE .MEDSUPPLY Qty: 1 0RF Rx Instructions: As directed (DME) pen needle, diabetic [BD Cherlele 2nd Gen Pen Needle] 32 gauge x 5/32 needle See Rx Instructions .MEDSUPPLY Qty: 200 7RF Rx Instructions: 5 times a day Baqsimi 3 mg/actuation spray,non-aerosol 3 mg intranasal ONCE 30 Days Qty: 2 6RF Rx Instructions: [place] once for severe hypoglycemia when patient cannot self-treat with glucose. Afterwards turn on side. May repeat after 15 minutes if patient does not respond. Fiasp FlexTouch U-100 Insulin 100 unit/mL (3 mL) insulin pen 2 - 14 unit subcut QID Qty: 15 6RF calcium citrate 200 mg (950 mg) tablet 400 mg PO BID Qty: 120 4RF Enbrel SureClick 50 mg/mL (1 mL) pen injector 50 mg subcut QWEEK Qty: 4 2RF cholecalciferol (vitamin D3) [Vitamin D3] 50 mcg (2,000 unit) capsule 50 mcg PO QAM Qty: 30 4RF carvedilol 6.25 mg tablet 6.25 mg PO BID 90 Days Qty: 180 2RF clopidogrel 75 mg tablet 75 mg PO QAM Qty: 30 7RF Tresiba FlexTouch U-100 100 unit/mL (3 mL) insulin pen 30 unit subcut DAILY Qty: 15 3RF folic acid 1 mg Tablet 1 mg PO DAILY Qty: 90 4RF clonazepam 0.5 mg tablet 1 tab PO Q8H PRN (Reason: anxiety) venlafaxine [Effexor XR] 150 mg capsule,extended release 24hr 150 mg PO DAILY hydroxyzine HCl 10 mg tablet 10 mg PO Q8H PRN (Reason: Anxiety) amlodipine 10 mg tablet 10 mg PO DAILY albuterol sulfate [Ventolin HFA] 90 mcg/actuation HFA aerosol inhaler 2 puff PO Q4-6H PRN (Reason: Shortness Of Breath Or Wheezing) losartan 50 mg tablet 50 mg PO QAM prazosin 2 mg capsule 6 mg PO BEDTIME levothyroxine 100 mcg tablet 100 mcg PO QAM cyanocobalamin (vitamin B-12) 1,000 mcg/mL drops 1 ml PO .once a month (DME) Dexcom G6 German Professor Misc See Rx Instructions .Route Rx Instructions: As directed gabapentin 100 mg capsule PO aripiprazole 20 mg tablet 20 mg PO DAILY lidocaine-prilocaine 2.5-2.5 % cream topical DAILY meloxicam 15 mg tablet 15 mg PO DAILY bisacodyl 5 mg tablet,delayed release (DR/EC) 10 mg PO BEDTIME Qty: 60 6RF Linzess 290 mcg capsule 290 mcg PO QAM 30 Days Qty: 30 6RF esomeprazole magnesium 40 mg capsule,delayed release(DR/EC) 40 mg PO DAILY Qty: 30 6RF sucralfate 100 mg/mL suspension 10 ml PO BID atorvastatin 20 mg tablet 20 mg PO DAILY Referrals: [facility] [Provider Group] Physician,Unknown J [Primary Care Provider] - Stand Alone Forms: Work/School Release Interventions: ED Discharge Assessment Last Done: 04/10/23 18:53 Discharge Date/Time: 04/10/23 18:55 Print Language: Greenlandic
[2023-04-10 12:03] LABS: Glucose, Whole Blood 51 mg/dL (60-115)
[2023-04-10 12:35] LABS: Glucose, Whole Blood 106 mg/dL (60-115)
[2023-04-10] MEDS: Albuterol Sulfate 2.5 MG, Albuterol/Iprat 2.5/0.5MG 3 ML 3 ML INHALE (12:42)
[2023-04-10 12:49] LABS: MANUAL DIFF FLAG NO
[2023-04-10 12:51] LABS: Basophils Absolute Auto 0.1 X10*3/uL (0.0-0.2); Basophils Percent Auto 1.2 % (0-2); Eosinophils Absolute Auto 1.2 X10*3/uL (0.0-0.4); Eosinophils Percent Auto 12.3 % (0-4); Hematocrit 38.8 % (37.0-47.0); Hemoglobin 12.2 g/dl (12.0-16.0); Imm Gran Abs Auto 0.05 X10*3/uL (0.00-0.03); Imm Gran Pct Auto 0.5 % (0.0-0.4); Lymphocytes Absolute Auto 2.8 X10*3/uL (1.2-4.9); Lymphocytes Percent Auto 28.6 % (20-40); Mean Corpuscular HGB Conc 31.4 g/dl (31.0-35.0); Mean Corpuscular Volume 85.8 fL (80.0-98.0); Mean Platelet Volume 10.3 fL (9.4-12.3); Monocytes Absolute Auto 1.3 X10*3/uL (0.1-1.2); Monocytes Percent Auto 13.5 % (2-11); Neutrophils Absolute Auto 4.3 x10*3/uL (2.0-8.3); Neutrophils Percent Auto 43.9 % (45-73); Platelet Count 229 X10*3/uL (160-400); Red Blood Count 4.52 X10*6/uL (4.20-5.50); Red Cell Distribution Width 15.2 % (11.0-16.0); White Blood Count 9.9 X10*3/uL (4.8-10.8)
[2023-04-10 13:05] LABS: INTERNATIONAL NORM RATIO 0.8 (0.9-1.1); Prothrombin Time 10.3 SEC (11.1-13.3)
[2023-04-10 13:11] LABS: B Type Natriuretic Peptide 11 pg/mL (<100); Troponin-I High Sensitivity 39.3 ng/L (<3.5-17.0)
[2023-04-10 13:20] LABS: Anion Gap 12 (12-20); Blood Urea Nitrogen 17 mg/dL (9-16); Calcium 9.6 mg/dL (8.4-10.2); Carbon Dioxide 31 mmol/L (22-29); Chloride 103 mmol/L (96-108); Creatinine Clr Calc Pharmacy 33.1; Estimated Glomerular Filt Rate 43; Glucose Random 92 mg/dL (60-115); Lipase 16 U/L (8-78); Magnesium 2.2 mg/dL (1.6-2.6); Potassium 4.1 mmol/L (3.3-5.1); Sodium 142 mmol/L (135-145)
[2023-04-10] MEDS: Acetaminophen 325 MG TABLET 975 MG PO (16:13)
[2023-04-10 16:23] LABS: Glucose, Whole Blood 174 mg/dL (60-115)
[2023-04-10 16:45] LABS: Troponin-I High Sensitivity 42.6 ng/L (<3.5-17.0)
[2023-04-10] MEDS: Albuterol/Iprat 2.5/0.5MG 3 ML AMPUL.NEB INHALE (17:49)
[2023-04-10 18:06] LABS: Influenza A PCR NEGATIVE (Negative); Influenza B PCR NEGATIVE (Negative); Resp Syncy Virus RNA Qual PCR POSITIVE (Negative); SARS COV2 PCR INHOUSE NEGATIVE (Negative)
[2023-04-10] MEDS: methylPREDNISolone Sod Succ 125 MG/2 ML VIAL IVPUSH (18:10)
== END 2023-04-10 18:55 | disposition home or self-care (01) ==
PROVIDERS: Physician Assistant Medical; Emergency Provider Emergency Medicine Emergency Medical Services
DX: J22 Unspecified acute lower respiratory infection (principal); B97.4 Respiratory syncytial virus as the cause of diseases classified elsewhere; J90 Pleural effusion, not elsewhere classified; J45.909 Unspecified asthma, uncomplicated; R06.02 Shortness of breath; R42 Dizziness and giddiness; I10 Essential (primary) hypertension; R05.9 Cough, unspecified; Z20.822 Contact with and (suspected) exposure to COVID-19; Z20.828 Contact with and (suspected) exposure to other viral communicable diseases; Z79.899 Other long term (current) drug therapy
CPT/HCPCS: 0241U; 36415; 71046; 80048; 82947; 83690; 83735; 83880; 84484; 85025; 85610; 93005; 94640; 96374; 99284; 99285; J2930

== ENCOUNTER → 2023-04-10 11:04 | Outpatient (BNV) | payer OTHER, SELFPAY | PROVIDERS: Emergency Provider Emergency Medicine Emergency Medical Services; Visit Provider Internal Medicine Cardiovascular Disease | DX: R94.31 Abnormal electrocardiogram [ECG] [EKG] (principal); R06.02 Shortness of breath | CPT/HCPCS: 93010 ==

== ENCOUNTER 2023-04-16 10:50 | Observation (INO) | payer OTHER, SELFPAY ==
[2023-04-16] VITALS (10 sets, daily range): BP systolic 142–200; BP diastolic 64–95; PULSE 62–105; RESP 16–24; TEMP 36.2–37.7; O2SAT 95–99; BMI 28.1
--- NOTE | 2023-04-16 | ECG_ITS ---
Test Reason : CHEST PAIN ON INSPIRATION Blood Pressure : / mmHG Vent. Rate : 072 BPM Atrial Rate : 072 BPM P-R Int : 122 ms QRS Dur : 096 ms QT Int : 362 ms P-R-T Axes : 027 035 082 degrees QTc Int : 396 ms Normal sinus rhythm Cannot rule out Anterior infarct , age undetermined Abnormal ECG When compared with ECG of 10-APR-2023 11:10, No significant change was found Referred By: Generic ED Physician Electronically Signed By:FRANNY CUADRA
--- NOTE | ~2023-04-16 | XR_ITS ---
EXAMINATION: XR CHEST CLINICAL INFORMATION: Cough COMPARISON: 04/10/2023 TECHNIQUE: Frontal view of the chest was obtained. FINDINGS: Heart and mediastinum within normal limits. Aortic calcifications again seen. Biapical pleural thickening again noted. No vascular congestion, consolidations or effusions. Bony structures are intact. XR/XR chest 1V IMPRESSION: No acute cardiopulmonary disease.
--- NOTE | 2023-04-16 11:08 | ED.GENADULT ---
HPI - General Adult General Chief complaint: Dyspnea Stated complaint: SOB,COUGH,VOMITING,CHILLS,GARCIA,CP FROM [facility] Time Seen by Provider: 04/16/23 11:04 Source: patient and EMS Mode of arrival: EMS Limitations: no limitations History of Present Illness HPI narrative: Patient is a 73 year old assigned female at with a history of HTN, DM, and CAD presenting to the emergency department today with continued shortness of breath and cough. Patient states that she was positive for RSV 6 days ago, given steroids, and has not improved. Patient states that she has worsened. Patient denies any dizziness, lightheadedness, abdominal pain, nausea, vomiting, fever, chills, blurry vision, double vision, loss of vision, chest pain, back pain, night sweats, pain with urination, increased urinary frequency, increased urinary urgency, blood in her urine or stool, syncope or a near syncopal episode, recent trauma or falls, bowel incontinence, bladder incontinence, bowel retention, bladder retention, or any other complaints at this time. Onset (ago): day(s) (6) Severity: moderate Severity scale (1-10): 5 Relieving factors: none Exacerbating factors: none Associated symptoms: shortness of breath Treatments prior to arrival: other (prednisone and albuterol) Related Data Home Medications Medication Instructions Recorded Confirmed venlafaxine 150 mg 150 mg PO DAILY 01/28/20 04/16/23 capsule,extended release 24 hr (Effexor XR) hydroxyzine HCl 10 mg tablet 10 mg PO Q8H PRN Anxiety 02/22/20 04/16/23 clonazepam 0.5 mg tablet 1 tab PO Q8H PRN anxiety 01/02/21 04/16/23 albuterol sulfate 90 mcg/actuation 2 puff PO Q4-6H PRN Shortness Of 10/19/21 04/16/23 aerosol inhaler (Ventolin HFA) Breath Or Wheezing losartan 50 mg tablet 50 mg PO QAM 10/19/21 04/16/23 blood-glucose meter,continuous 01/11/22 04/16/23 (Dexcom G6 [employer]) amlodipine 10 mg tablet 10 mg PO DAILY 05/14/22 04/16/23 prazosin 2 mg capsule 6 mg PO BEDTIME 05/14/22 04/16/23 levothyroxine 100 mcg tablet 100 mcg PO QAM 08/07/22 04/16/23 meloxicam 15 mg tablet 15 mg PO DAILY 10/08/22 04/16/23 sucralfate 100 mg/mL oral 10 ml PO BID 10/08/22 04/16/23 suspension aripiprazole 20 mg tablet 20 mg PO DAILY 01/10/23 04/16/23 gabapentin 100 mg capsule 200 mg PO BID 01/10/23 04/16/23 atorvastatin 20 mg tablet 20 mg PO DAILY 02/20/23 04/16/23 Previous Rx's Medication Instructions Recorded insulin syringe-needle U-100 0.3 #100 ea 06/13/20 mL 31 gauge x 5/16 (BD Insulin Syringe Ultra-Fine) blood sugar diagnostic (FreeStyle #200 ea 05/06/22 Lite Strips) folic acid 1 mg tablet 1 mg PO DAILY #90 tabs 05/19/22 blood-glucose meter (FreeStyle #1 ea 05/20/22 Lite Meter kit) bisacodyl 5 mg tablet,delayed 10 mg (2 x 5 mg) PO BEDTIME #60 10/08/22 release tabs esomeprazole magnesium 40 mg 40 mg PO DAILY #30 caps 10/08/22 capsule,delayed release linaclotide 290 mcg capsule 290 mcg PO QAM 30 days #30 caps 10/08/22 (Linzess) BD Cherelle 2nd Gen Pen Needle 32 #200 ea 10/16/22 gauge x 5/32 (pen needle, diabetic) glucagon 3 mg/actuation nasal 3 mg intranasal ONCE unresponsive 11/08/22 spray (Baqsimi) hypoglycemia 30 days #2 ea insulin aspart 2 - 14 unit subcut QID #15 mL 12/24/22 (niacinamide)(U-100) 100 unit/mL(3 mL) subcutaneous pen (Fiasp FlexTouch U-100 Insulin) calcium citrate 200 mg (950 mg) 400 mg (2 x 200 mg (950 mg)) PO 01/01/23 tablet BID #120 tabs Enbrel SureClick 50 mg/mL (1 mL) 50 mg subcut QWEEK #4 mL 01/28/23 subcutaneous pen injector (etanercept) cholecalciferol (vitamin D3) 50 50 mcg PO QAM #30 caps 01/31/23 mcg (2,000 unit) capsule (Vitamin D3) carvedilol 6.25 mg tablet 6.25 mg PO BID 90 days #180 tabs 03/03/23 clopidogrel 75 mg tablet 75 mg PO QAM #30 tabs 03/05/23 insulin degludec 100 unit/mL (3 30 unit (0.3 mL) subcut DAILY #15 03/17/23 mL) subcutaneous pen (Tresiba mL FlexTouch U-100 insulin) albuterol sulfate 90 mcg/actuation 2 puff inhalation Q4-6H PRN 04/10/23 aerosol inhaler shortness of breath or wheezing #8.5 grams Allergies Allergy/AdvReac Type Severity Reaction Status Date / Time lorazepam [LORAZEPAM] Allergy Severe DELIRIUM Verified 04/16/23 11:00 celecoxib [From Celebrex] Allergy Intermediate ITCHING Verified 04/16/23 11:00 tramadol [TRAMADOL] Allergy Intermediate ITCHING Verified 04/16/23 11:00 zolpidem [Ambien] Allergy Unknown unknown Verified 04/16/23 11:00 Review of Systems Constitutional: Constitutional: Reports no additional constitutional complaints, Denies chills, Denies fever(s) and Denies night sweats Eyes: Eyes: Reports no additional eye complaints, Denies blurry vision, Denies change in vision, Denies diplopia, Denies eye discharge, Denies loss of vision and Denies eye pain ENT: Denies dizziness Cardiovascular: Cardiovascular: Reports no additional cardiovascular complaints, Denies chest pain, Denies lightheadedness, Denies Loss of Consciousness and Reports dyspnea Respiratory: Respiratory: Reports no additional respiratory complaints and Reports dyspnea Gastrointestinal: Gastrointestinal: Reports no additional gastrointestinal complaints, Denies abdominal pain, Denies melena, Denies hematochezia, Denies change in bowel habits and Denies change in stool character Genitourinary: Genitourinary: Denies hematuria, Denies urinary frequency, Denies dysuria, Denies urinary incontinence, Denies urinary hesitancy and Denies urinary urgency Musculoskeletal: Musculoskeletal: Reports no additional musculoskeletal complaints, Denies numbness and Denies tingling Neurologic: Denies dizziness, Denies loss of vision, Denies numbness and Denies tingling Psychiatric: Psychiatric: Reports no additional psychiatric complaints Endocrine: Endocrine: Reports no additional endocrine complaints Hematologic/Lymphatic: Hematologic/Lymphatic: Reports no additional hematologic/lymphatic complaints Allergic/Immunologic: Allergic/Immunologic: Reports no additional allergic/immunologic complaints [facility] Past Medical History Attestation statement: The following information was validated with the patient. Source: old records reviewed and nursing notes reviewed Medical History Hypothyroidism (04/21/1959) Hyperlipidemia (04/21/1959) Depressive disorder (04/21/1959) Recurrent falls (12/04/11) Nutritional anemia (04/21/1959) Iron deficiency anemia (04/21/1959) Fibromyositis (04/21/1959) Eczema (04/21/1959) High risk medication use Hepatitis C antibody positive in blood Screening for osteoporosis Screening for viral disease Joint swelling Overweight (BMI 25.0-29.9) Neck pain Swelling of knee joint, right Intra-abdominal abscess Diabetes Elevated liver function tests Intestinal malabsorption following gastrectomy Obesity (BMI 30-39.9) 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 Hypertension Cholecystitis Hyperlipidemia, unspecified Essential hypertension Atherosclerotic cardiovascular disease NSTEMI (non-ST elevated myocardial infarction) Fibromyalgia Folliculitis Anxiety Depression History of myocardial infarction Diabetes type 1, uncontrolled Hyperparathyroidism due to vitamin D deficiency Dyslipidemia Rona's disease Hypothyroidism Surgical History History of bypass gastroenterostomy (11/13/17) S/P laparoscopic cholecystectomy Status post gastric bypass for obesity History of esophagogastroduodenoscopy (EGD) H/O colonoscopy History of laparoscopic cholecystectomy History of bladder suspension procedure Status post laser cataract surgery of both eyes Hx of appendectomy H/O gastric bypass Family History Family History Father No problems noted. Mother CVA (cerebral vascular accident) Sister Hypertension Brother Hypertension Liver cancer Social History Social History Household Members: None and Unknown / Unable to assess Housing: Apartment Are you a primary customer care manager to a significant other at home: No Do you presently have visiting nurse or other home services: Yes Unable to assess alcohol history related to: Unable to respond Alcohol intake: never Patient Tobacco Use Status: Never used Tobacco Smoked in Last 30 Days: No Use of substances other than those prescribed or required for medical reasons: No Advance Directives: No Advance Directives Information Provided: Yes service: No Current occupational status: disabled Physical Exam ED Vital Signs: Vital Signs - 24 hr 04/16/23 11:04 04/16/23 12:18 Temperature 98.6 F Pulse Rate 76 62 Respiratory Rate 16 24 H Blood Pressure 165/84 H Pulse Oximetry 97 Oxygen Delivery Method Room Air BMI result Body Mass Index 28.1 Const General: cooperative, no acute distress, alert and awake Nutritional Appearance: well nourished Orientation/consciousness: patient oriented x3 Limitations: no limitations HENMT Head: Yes normal to inspection and Yes atraumatic Ears: hearing grossly normal bilaterally and external ears normal General nose exam: Normal external nose present, no nasal discharge noted and no epistaxis Face and sinus: Yes normal facial exam, No abrasion and No laceration Mouth: Normal oral and palatal mucosa present, no drooling and no muffled voice Eyes General: appearance normal, both eyes and all related structures Periorbital: periorbital findings normal Eyelids: Yes eyelids normal Conjunctivae: conjunctivae normal Pupils: Equal, round and reactive pupils present EOM: EOMs intact bilaterally Neck Neck: Yes normal visual inspection, Yes full ROM and Yes no lymphadenopathy Chest Chest palpation & inspection: normal inspection of the chest Resp Effort & Inspection: normal respiratory effort and able to speak in complete sentences Auscultation: diminished lung sounds diffuse GI Inspection: Yes normal to inspection Neuro General: patient oriented x3 and moves all extremities Cranial nerves: Yes Equal, round and reactive pupils present Cognition (Neuro): normal cognition Motor exam (neuro): 5/5 motor strength present throughout Sensory Exam: Normal double simultaneous stimulation for sensation Coordination: [id number] test normal Extrem General: Yes normal to inspection, Yes full ROM and Yes capillary refill normal Psych Appearance: grossly normal Mental Status: mental status grossly normal Affect: normal affect Attitude: cooperative Thought process: Normal thought process present Thought content: Normal thought content present Insight: Good insight present (Psych) Medications Administered Discontinued Medications Generic Name Dose Route Start Last Admin Trade Name Freq PRN Reason Stop Dose Admin Albuterol/Ipratropium 3 ml 04/16/23 12:17 04/16/23 12:20 Albuterol/Iprat 2.5/0.5mg 3 Ml Ampul.Neb INHALE 04/16/23 12:18 3 ml ONCE ONE Administration Medical Decision Making Medical Decision Making MDM Narrative: Patient is a 73 year old assigned female at with a history of HTN, DM, and CAD presenting to the emergency department today with persistent shortness of breath and being RSV+. Patient's physical exam was as noted in the physical exam portion of this note. Patient's blood work was unremarkable. Patient continues to be RSV positive. Patient's EKG was unremarkable. Patient's chest x-ray showed no acute process. Given the patient has failed outpatient therapy for RSV and is continues to worsen / not improve, will admit. Patient's clinical presentation is not consistent with sepsis (@1330). Spoke to the hospitalist team who agreed to admission. I explained my physical exam findings as well as all test results to the patient. I answered all questions asked by the patient. Patient verbalized agreement and understanding with this treatment plan and admission. Differential Diagnosis Differential Diagnoses: The differential diagnosis associated with the presentation includes RSV Infuenza COVID-19 Respiratory distress Shortness of breath PNA Admission/Observation Consideration of admission/observation: Escalation of care including admission/observation considered Patient to be admitted. Consult Healthcare Provider Management of the patient was discussed with: Hospitalist (Agreed to admission.) Lab Data [facility] Lab Attestation statement: I reviewed the patient's lab results. My interpretation of these results are in the MDM Rationale portion of this note. 04/16/23 11:08 04/16/23 11:33 Labs: Lab Results 04/16/23 04/16/23 04/16/23 Range/Units 11:08 11:33 11:38 WBC 12.3 H (4.8-10.8) X10*3/uL RBC 4.60 (4.20-5.50) X10*6/uL Hgb 12.4 (12.0-16.0) g/dl Hct 38.7 (37.0-47.0) % MCV 84.1 (80.0-98.0) fL MCH 27.0 (27.0-33.0) pg MCHC 32.0 (31.0-35.0) g/dl RDW 15.5 (11.0-16.0) % Plt Count 260 (160-400) X10*3/uL MPV 9.9 (9.4-12.3) fL Immature Gran % (Auto) 0.7 H (0.0-0.4) % Neut % (Auto) 75.6 H (45-73) % Lymph % (Auto) 20.5 (20-40) % [place] % (Auto) 2.7 (2-11) % Eos % (Auto) 0.2 (0-4) % Baso % (Auto) 0.3 (0-2) % Lymph # (Auto) 2.5 (1.2-4.9) X10*3/uL [place] # (Auto) 0.3 (0.1-1.2) X10*3/uL Eos # (Auto) 0.0 (0.0-0.4) X10*3/uL Baso # (Auto) 0.0 (0.0-0.2) X10*3/uL Abs Immat Gran (auto) 0.09 H (0.00-0.03) X10*3/uL Absolute Neuts (auto) 9.3 H (2.0-8.3) x10*3/uL Absolute Nucleated RBC 0.000 (0.0-0.012) X10*3/uL Nucleated RBC % (auto) 0.0 (0.0-0.2) /100WBC VBG pH 7.50 H (7.32-7.43) VBG pCO2 37 mmHg VBG pO2 179 mmHg VBG HCO3 29 H (22-26) mmol/L VBG O2 Saturation 97.0 % VBG Base Excess 6.4 mmol/L Sodium 140 (135-145) mmol/L Potassium 3.9 (3.3-5.1) mmol/L Chloride 106 (96-108) mmol/L Carbon Dioxide 25 (22-29) mmol/L Anion Gap 13 (12-20) BUN 16 (9-16) mg/dL Creatinine 1.06 (0.5-1.4) mg/dL Estim Creat Clear Calc 43.2 Estimated GFR 51 POC Glucose (60-115) mg/dL Random Glucose 66 (60-115) mg/dL Calcium 10.0 (8.4-10.2) mg/dL Total Bilirubin 0.4 (0.0-1.0) mg/dL AST 34 H (5-31) U/L ALT 34 H (0-31) U/L Alkaline Phosphatase 112 (39-117) U/L Troponin I High Sens 16.6 D (<3.5-17.0) ng/L Total Protein 7.2 (6.5-8.0) g/dL Albumin 3.9 (3.5-5.0) g/dL Influenza Type A (PCR) NEGATIVE (Negative) Influenza Type B (PCR) NEGATIVE (Negative) RSV RNA Qual (PCR) POSITIVE A (Negative) SARS-CoV-2 RNA (RT-PCR) NEGATIVE (Negative) 04/16/23 04/16/23 Range/Units 11:58 13:01 WBC (4.8-10.8) X10*3/uL RBC (4.20-5.50) X10*6/uL Hgb (12.0-16.0) g/dl Hct (37.0-47.0) % MCV (80.0-98.0) fL MCH (27.0-33.0) pg MCHC (31.0-35.0) g/dl RDW (11.0-16.0) % Plt Count (160-400) X10*3/uL MPV (9.4-12.3) fL Immature Gran % (Auto) (0.0-0.4) % Neut % (Auto) (45-73) % Lymph % (Auto) (20-40) % [place] % (Auto) (2-11) % Eos % (Auto) (0-4) % Baso % (Auto) (0-2) % Lymph # (Auto) (1.2-4.9) X10*3/uL [place] # (Auto) (0.1-1.2) X10*3/uL Eos # (Auto) (0.0-0.4) X10*3/uL Baso # (Auto) (0.0-0.2) X10*3/uL Abs Immat Gran (auto) (0.00-0.03) X10*3/uL Absolute Neuts (auto) (2.0-8.3) x10*3/uL Absolute Nucleated RBC (0.0-0.012) X10*3/uL Nucleated RBC % (auto) (0.0-0.2) /100WBC VBG pH (7.32-7.43) VBG pCO2 mmHg VBG pO2 mmHg VBG HCO3 (22-26) mmol/L VBG O2 Saturation % VBG Base Excess mmol/L Sodium (135-145) mmol/L Potassium (3.3-5.1) mmol/L Chloride (96-108) mmol/L Carbon Dioxide (22-29) mmol/L Anion Gap (12-20) BUN (9-16) mg/dL Creatinine (0.5-1.4) mg/dL Estim Creat Clear Calc Estimated GFR POC Glucose 55 L* 220 H (60-115) mg/dL Random Glucose (60-115) mg/dL Calcium (8.4-10.2) mg/dL Total Bilirubin (0.0-1.0) mg/dL AST (5-31) U/L ALT (0-31) U/L Alkaline Phosphatase (39-117) U/L Troponin I High Sens (<3.5-17.0) ng/L Total Protein (6.5-8.0) g/dL Albumin (3.5-5.0) g/dL Influenza Type A (PCR) (Negative) Influenza Type B (PCR) (Negative) RSV RNA Qual (PCR) (Negative) SARS-CoV-2 RNA (RT-PCR) (Negative) Independent Interpretation I performed an independent interpretation of an: EKG and Plain X-Ray Interpretation: My interpretation is in agreement with the radiologist's impression of this imaging study. EXAMINATION: XR CHEST CLINICAL INFORMATION: Cough COMPARISON: 04/10/2023 TECHNIQUE: Frontal view of the chest was obtained. FINDINGS: Heart and mediastinum within normal limits. Aortic calcifications again seen. Biapical pleural thickening again noted. No vascular congestion, consolidations or effusions. Bony structures are intact. XR/XR chest 1V IMPRESSION: No acute cardiopulmonary disease. Dictated By: Marisela Diaz MD Signed By: Electronically signed by Marisela Diaz MD 04/16/23 1258 Vent. Rate: 072 BPM Atrial Rate: 072 BPM P-R Int: 122 ms QRS Dur: 096 ms QT Int: 362 ms P-R-T Axes: 027 035 082 degrees QTc Int: 396 ms Normal sinus rhythm Cannot rule out Anterior infarct , age undetermined Abnormal ECG When compared with ECG of 10-APR-2023 11:10, No significant change was found DD/ 1142 Radiology Impression Discussion of test interpretation with radiology: I have reviewed the radiologist's reading. Independent Historian Clinical information obtained from an independent historian. History obtained from or confirmed by: EMS (EMS provided additional history and confirmed the history provided by the patient.) Critical Care Time Critical Care Time Critical Care Time: Yes Total Critical Care Time: 40 Attestation: I spent 40 minutes of Critical Care Time with this patient. This does not include time spent on separately reported billable procedures. Discharge Plan Discharge Clinical Impression: Respiratory syncytial virus (RSV) Patient Disposition: Admitted As Inpatient
[2023-04-16 11:16] LABS: Basophils Percent Auto 0.3 % (0-2); Eosinophils Percent Auto 0.2 % (0-4); Hematocrit 38.7 % (37.0-47.0); Hemoglobin 12.4 g/dl (12.0-16.0); Imm Gran Abs Auto 0.09 X10*3/uL (0.00-0.03); Imm Gran Pct Auto 0.7 % (0.0-0.4); Lymphocytes Absolute Auto 2.5 X10*3/uL (1.2-4.9); Lymphocytes Percent Auto 20.5 % (20-40); MANUAL DIFF FLAG NO; Mean Corpuscular Volume 84.1 fL (80.0-98.0); Mean Platelet Volume 9.9 fL (9.4-12.3); Monocytes Absolute Auto 0.3 X10*3/uL (0.1-1.2); Monocytes Percent Auto 2.7 % (2-11); Neutrophils Absolute Auto 9.3 x10*3/uL (2.0-8.3); Neutrophils Percent Auto 75.6 % (45-73); Platelet Count 260 X10*3/uL (160-400); Red Cell Distribution Width 15.5 % (11.0-16.0); White Blood Count 12.3 X10*3/uL (4.8-10.8)
--- NOTE | 2023-04-16 11:19 | PC.NURSE ---
pt biba from urgent care d/t UR sx. sob/wob/wheezing/productive cough. [place] [facility] [place]x. tested + for RSV. pt also c/o nonradiating chest pain. worsens upon inspiration. 20gIV placed in the right AC w/o difficulty. labs drawn and sent to lab. rspirations even and labored. no sob/wob noted at this time. productive cough present. pt on RA w/o difficulties. pt awaiting to be seen by provider. call andino placed within reach.
--- NOTE | 2023-04-16 11:41 | PC.NURSE ---
repeat labs obtained/ekg performed by [facility]'s. family bedside. call andino placed within reach.
[2023-04-16 11:44] LABS: Venous Blood Gas Refer to POC result
[2023-04-16 11:45] LABS: VBG Base Excess 6.4 mmol/L; VBG HCO3 29 mmol/L (22-26); VBG pCO2 37 mmHg; VBG pO2 179 mmHg
--- NOTE | 2023-04-16 12:00 | PC.NURSE ---
tech made this RN aware of POC of 55mg/dL - tech delegated to administer sugar packets/orange juice - will reassess POC.
[2023-04-16 12:03] LABS: Alanine Aminotransferase 34 U/L (0-31); Albumin Level 3.9 g/dL (3.5-5.0); Alkaline Phosphatase 112 U/L (39-117); Anion Gap 13 (12-20); Aspartate Amino Transferase 34 U/L (5-31); Bilirubin Total 0.4 mg/dL (0.0-1.0); Blood Urea Nitrogen 16 mg/dL (9-16); Carbon Dioxide 25 mmol/L (22-29); Chloride 106 mmol/L (96-108); Creatinine Clr Calc Pharmacy 43.2; Estimated Glomerular Filt Rate 51; Glucose Random 66 mg/dL (60-115); Potassium 3.9 mmol/L (3.3-5.1); Sodium 140 mmol/L (135-145); Total Protein 7.2 g/dL (6.5-8.0)
[2023-04-16 12:03] LABS: Glucose, Whole Blood 55 mg/dL (60-115)
[2023-04-16 12:06] LABS: Troponin-I High Sensitivity 16.6 ng/L (<3.5-17.0)
[2023-04-16 12:19] LABS: Influenza A PCR NEGATIVE (Negative); Influenza B PCR NEGATIVE (Negative); Resp Syncy Virus RNA Qual PCR POSITIVE (Negative); SARS COV2 PCR INHOUSE NEGATIVE (Negative)
[2023-04-16] MEDS: Albuterol/Iprat 2.5/0.5MG 3 ML AMPUL.NEB INHALE (12:20)
--- NOTE | 2023-04-16 12:57 | PC.NURSE ---
pt receiving breathing treatment at this time.
[2023-04-16 13:06] LABS: Glucose, Whole Blood 220 mg/dL (60-115)
--- NOTE | 2023-04-16 13:18 | PC.NURSE ---
POC increased to 220mg/dL post orange juice/sugar administration. pt continues to rest in no apparent distress. respirations even and unlabored at this time. family bedside. call andino placed within reach.
--- NOTE | 2023-04-16 13:40 | P.HPHOSP_ITS ---
History of Present Illness Date of Service: 04/16/23 Chief Complaint: Weakness, cough, dyspnea A 73 years old lady with PMH of DMII, HTN, HLD, GERD, RA, Depression among others who presents with SOB and weakness. The patient reported feeling sick for a week now. she was evaluated earlier this week at ER and found to be positive for RSV. did not feel any better on supportive measures at home. reporting increase weakness, cough, decrese PO intake and feeling fatigued with no energy. denies any fever or chills. No chest pain, palpitations, nausea, vomiting, diarrhea or urinary symptoms. In ED she tested positive again for RSV. CXR did not show any acute findings. Review of Systems 2 Review of Systems: No fever, chills but reporting weakness No chest pain, palpitation having shortness of breath and coughing No abdominal pain, nausea or vomiting No urinary symptoms No any rash or wounds PMFSH Medical History Hypothyroidism (04/21/1959) Hyperlipidemia (04/21/1959) Depressive disorder (04/21/1959) Recurrent falls (12/04/11) Nutritional anemia (04/21/1959) Iron deficiency anemia (04/21/1959) Fibromyositis (04/21/1959) Eczema (04/21/1959) High risk medication use Hepatitis C antibody positive in blood Screening for osteoporosis Screening for viral disease Joint swelling Overweight (BMI 25.0-29.9) Neck pain Swelling of knee joint, right Intra-abdominal abscess Diabetes Elevated liver function tests Intestinal malabsorption following gastrectomy Obesity (BMI 30-39.9) 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 Hypertension Cholecystitis Hyperlipidemia, unspecified Essential hypertension Atherosclerotic cardiovascular disease NSTEMI (non-ST elevated myocardial infarction) Fibromyalgia Folliculitis Anxiety Depression History of myocardial infarction Diabetes type 1, uncontrolled Hyperparathyroidism due to vitamin D deficiency Dyslipidemia Rona's disease Hypothyroidism Family History Father No problems noted. Mother CVA (cerebral vascular accident) Sister Hypertension Brother Hypertension Liver cancer Surgical History History of bypass gastroenterostomy (11/13/17) S/P laparoscopic cholecystectomy Status post gastric bypass for obesity History of esophagogastroduodenoscopy (EGD) H/O colonoscopy History of laparoscopic cholecystectomy History of bladder suspension procedure Status post laser cataract surgery of both eyes Hx of appendectomy H/O gastric bypass Social History Household Members: None and Unknown / Unable to assess Housing: Apartment Are you a primary child care centre manager to a significant other at home: No Do you presently have visiting nurse or other home services: Yes Unable to assess alcohol history related to: Unable to respond Alcohol intake: never Patient Tobacco Use Status: Never used Tobacco Smoked in Last 30 Days: No Use of substances other than those prescribed or required for medical reasons: No Advance Directives: No Advance Directives Information Provided: Yes service: No Current occupational status: disabled Meds Allergies Allergy/AdvReac Type Severity Reaction Status Date / Time lorazepam [LORAZEPAM] Allergy Severe DELIRIUM Verified 04/16/23 11:00 celecoxib [From Celebrex] Allergy Intermediate ITCHING Verified 04/16/23 11:00 tramadol [TRAMADOL] Allergy Intermediate ITCHING Verified 04/16/23 11:00 zolpidem [Ambien] Allergy Unknown unknown Verified 04/16/23 11:00 Home Medications Medication Instructions Recorded Confirmed Last Taken Type venlafaxine 150 mg 150 mg PO DAILY 01/28/20 04/16/23 Unknown History capsule,extended release 24 hr (Effexor XR) hydroxyzine HCl 10 mg tablet 10 mg PO Q8H PRN Anxiety 02/22/20 04/16/23 Unknown History clonazepam 0.5 mg tablet 1 tab PO Q8H PRN anxiety 01/02/21 04/16/23 Unknown History albuterol sulfate 90 mcg/actuation 2 puff PO Q4-6H PRN Shortness Of 10/19/21 04/16/23 Unknown History aerosol inhaler (Ventolin HFA) Breath Or Wheezing losartan 50 mg tablet 50 mg PO QAM 10/19/21 04/16/23 Unknown History blood-glucose meter,continuous 01/11/22 04/16/23 Unknown History ([employer] 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) amlodipine 10 mg tablet 10 mg PO DAILY 05/14/22 04/16/23 Unknown History prazosin 2 mg capsule 6 mg PO BEDTIME 05/14/22 04/16/23 Unknown History levothyroxine 100 mcg tablet 100 mcg PO QAM 08/07/22 04/16/23 Unknown History meloxicam 15 mg tablet 15 mg PO DAILY 10/08/22 04/16/23 Unknown History sucralfate 100 mg/mL oral 10 ml PO BID 10/08/22 04/16/23 Unknown History suspension aripiprazole 20 mg tablet 20 mg PO DAILY 01/10/23 04/16/23 Unknown History gabapentin 100 mg capsule 200 mg PO BID 01/10/23 04/16/23 Unknown History atorvastatin 20 mg tablet 20 mg PO DAILY 02/20/23 04/16/23 Unknown History Physical Exam 2 Vital Signs and Narrative: Vital Signs: Last Vital Signs Temp 98.6 F 04/16/23 11:04 Pulse 62 04/16/23 12:18 Resp 24 H 04/16/23 12:18 BP 165/84 H 04/16/23 11:04 Pulse Ox 97 04/16/23 11:04 O2 Del Method Room Air 04/16/23 11:04 BMI result Body Mass Index 28.1 Const: Other: Constitutional : Awake, interactive, not in distress Neck : Normal inspection, Supple Cardiovascular : RRR, no JVP, no lower extremity edema Respiratory : decreased bilateral air entry, no crackles, expiratory wheezes Gastrointestinal: soft, lax, Normal bowel sounds, Non tender Skin : Warm, Dry Neurological : Alert & oriented x3, No focal deficit Results Labs 04/16/23 11:08 04/16/23 11:33 Labs: Laboratory Results - last 24 hr 04/16/23 04/16/23 04/16/23 11:08 11:33 11:38 MCV 84.1 MCH 27.0 MCHC 32.0 RDW 15.5 Plt Count 260 MPV 9.9 Immature Gran % (Auto) 0.7 H Neut % (Auto) 75.6 H Lymph % (Auto) 20.5 [place] % (Auto) 2.7 Eos % (Auto) 0.2 Baso % (Auto) 0.3 Lymph # (Auto) 2.5 [place] # (Auto) 0.3 Eos # (Auto) 0.0 Baso # (Auto) 0.0 Abs Immat Gran (auto) 0.09 H Absolute Neuts (auto) 9.3 H Absolute Nucleated RBC 0.000 Nucleated RBC % (auto) 0.0 VBG pH 7.50 H VBG pCO2 37 VBG pO2 179 VBG HCO3 29 H VBG O2 Saturation 97.0 VBG Base Excess 6.4 Anion Gap 13 Estim Creat Clear Calc 43.2 Estimated GFR 51 POC Glucose Random Glucose 66 Calcium 10.0 Total Bilirubin 0.4 AST 34 H ALT 34 H Alkaline Phosphatase 112 Total Protein 7.2 Albumin 3.9 Influenza Type A (PCR) NEGATIVE Influenza Type B (PCR) NEGATIVE RSV RNA Qual (PCR) POSITIVE A SARS-CoV-2 RNA (RT-PCR) NEGATIVE 04/16/23 04/16/23 11:58 13:01 MCV MCH MCHC RDW Plt Count MPV Immature Gran % (Auto) Neut % (Auto) Lymph % (Auto) [place] % (Auto) Eos % (Auto) Baso % (Auto) Lymph # (Auto) [place] # (Auto) Eos # (Auto) Baso # (Auto) Abs Immat Gran (auto) Absolute Neuts (auto) Absolute Nucleated RBC Nucleated RBC % (auto) VBG pH VBG pCO2 VBG pO2 VBG HCO3 VBG O2 Saturation VBG Base Excess Anion Gap Estim Creat Clear Calc Estimated GFR POC Glucose 55 L* 220 H Random Glucose Calcium Total Bilirubin AST ALT Alkaline Phosphatase Total Protein Albumin Influenza Type A (PCR) Influenza Type B (PCR) RSV RNA Qual (PCR) SARS-CoV-2 RNA (RT-PCR) Imaging Radiologist's Impressions: Impressions Chest X-Ray 04/16/23 12:06 IMPRESSION: No acute cardiopulmonary disease. Assessment and Plan (1) Respiratory syncytial virus (RSV): Status: Acute (2) Acute bronchitis due to respiratory syncytial virus (RSV): Status: Acute Plan A 73 years old lady with PMH of DMII, HTN, HLD, GERD, RA, Depression among others who presents with SOB and weakness. Acute bronchitis 2/2 RSV infection complicated w physical deconditioning Supportive therapy: IVF, cough medicine start Steroids PT evaluation O2 as needed Duonebs Hypoglycemia secondary to diabetes Given replacement DEcrease Lantus dose SSI diabetic diet HLD Statin CAD Resume Plavix and continue beta-gomez HTN Amlodipine, Losartan History of depression continue home meds DVT prophylaxis Lovenox Quality Stroke Does the patient have a stroke diagnosis?: No VTE Prior VTE?: No VTE Risk Level:: Medical - moderate - high VTE Device Contraindication: Treatment Not Indicated VTE Drug Contraindication: N/A - Med Ordered
--- NOTE | 2023-04-16 13:43 | PHA.MEDREC ---
Pharmacy Consult ? Medication Reconciliation Pharmacy has completed the medication reconciliation. Patient had a list from 05/13/22 from [facility], used this and claim history to create list. Looks like the only differences were dose increases
[2023-04-16] MEDS: methylPREDNISolone Sod Succ 125 MG/2 ML VIAL IVPUSH (14:18)
[2023-04-16] MEDS: guaiFENesin LA 600 MG TAB.ER.12H PO ×2 (14:18→20:35)
[2023-04-16] MEDS: Enoxaparin Sodium 40 MG/0.4 ML SYRINGE SUBCUT (14:18)
[2023-04-16] MEDS: Lactated Ringers 1,000 ML 80 ML IVCONT (14:21)
--- NOTE | 2023-04-16 14:43 | PC.NURSE ---
report given to Delicia FISCHER in overflow for pt transfer.
[2023-04-16 15:17] LABS: Troponin-I High Sensitivity 20.9 ng/L (<3.5-17.0)
[2023-04-16] MEDS: Acetaminophen 325 MG TABLET 650 MG PO (15:31)
[2023-04-16] MEDS: amLODIPine Besylate 10 MG TABLET PO (15:50)
--- NOTE | 2023-04-16 15:53 | PC.NURSE ---
Patient requested Tylenol for pain, medicated with Tylenol per JUN.
[2023-04-16 16:25] LABS: Glucose, Whole Blood 278 mg/dL (60-115)
[2023-04-16] MEDS: Insulin Lispro 100 UNIT/ML 3 ML VIAL SUBCUT ×2 (16:58→20:35)
[2023-04-16] MEDS: Albuterol Sulfate (0.083%) 2.5 MG/3 ML VIAL.NEB INHALE (20:24)
[2023-04-16 20:30] LABS: Glucose, Whole Blood 310 mg/dL (60-115)
[2023-04-16] MEDS: Sucralfate Oral Suspension 1 GM/10 ML ORAL.SUSP PO (20:34)
[2023-04-16] MEDS: Gabapentin 100 MG CAPSULE 200 MG PO (20:34)
[2023-04-16] MEDS: Prazosin HCL 1 MG CAPSULE 6 MG PO (20:34)
[2023-04-16] MEDS: bisacodyL 5 MG TABLET.DR 10 MG PO (20:35)
[2023-04-16] MEDS: carvediloL 6.25 MG TABLET PO (20:35)
[2023-04-16] MEDS: NaPROXEN 500 MG TABLET PO (20:35)
[2023-04-17] VITALS (11 sets, daily range): BP systolic 140–170; BP diastolic 70–90; PULSE 78–93; RESP 16–18; TEMP 36–36.5; O2SAT 91–99
[2023-04-17] MEDS: Acetaminophen 325 MG TABLET 650 MG PO ×2 (01:11→09:10)
[2023-04-17] MEDS: Albuterol Sulfate (0.083%) 2.5 MG/3 ML VIAL.NEB INHALE ×3 (01:37→23:05)
[2023-04-17] MEDS: Lactated Ringers 1,000 ML 80 ML IVCONT ×2 (02:58→15:28)
[2023-04-17] MEDS: Levothyroxine Sodium 100 MCG TABLET PO (05:37)
[2023-04-17] MEDS: Omeprazole 20 MG CAPSULE.DR PO (05:37)
[2023-04-17 05:40] LABS: Anion Gap 15 (12-20); Blood Urea Nitrogen 17 mg/dL (9-16); Calcium 9.1 mg/dL (8.4-10.2); Carbon Dioxide 24 mmol/L (22-29); Chloride 101 mmol/L (96-108); Creatinine Clr Calc Pharmacy 44.5; Estimated Glomerular Filt Rate 53; Glucose Random 135 mg/dL (60-115); Potassium 3.6 mmol/L (3.3-5.1); Sodium 136 mmol/L (135-145)
[2023-04-17 07:55] LABS: Glucose, Whole Blood 141 mg/dL (60-115)
[2023-04-17] MEDS: Atorvastatin Calcium 20 MG TABLET PO (09:09)
[2023-04-17] MEDS: Gabapentin 100 MG CAPSULE 200 MG PO ×2 (09:09→21:19)
[2023-04-17] MEDS: guaiFENesin LA 600 MG TAB.ER.12H PO ×2 (09:09→21:20)
[2023-04-17] MEDS: Losartan Potassium 50 MG TABLET PO (09:09)
[2023-04-17] MEDS: Sucralfate Oral Suspension 1 GM/10 ML ORAL.SUSP PO ×2 (09:09→21:18)
[2023-04-17] MEDS: Venlafaxine HCl ER 150 MG CAP.ER.24H PO (09:09)
[2023-04-17] MEDS: amLODIPine Besylate 10 MG TABLET PO (09:10)
[2023-04-17] MEDS: Clopidogrel Bisulfate 75 MG TABLET PO (09:10)
[2023-04-17] MEDS: Cholecalciferol (Vitamin D3) 25 MCG TABLET 50 MCG PO (09:10)
[2023-04-17] MEDS: Folic Acid 1 MG TABLET PO (09:10)
[2023-04-17] MEDS: NaPROXEN 500 MG TABLET PO ×2 (09:10→21:19)
[2023-04-17] MEDS: carvediloL 6.25 MG TABLET PO ×2 (09:10→21:19)
[2023-04-17] MEDS: ARIPiprazole 20 MG TABLET PO (09:10)
[2023-04-17] MEDS: Insulin Glargine,Hum.rec.anlog 100 UNIT/ML 10 ML VIAL 20 UNIT SUBCUT (09:14)
[2023-04-17] MEDS: 0.9 % Sodium Chloride Flush 3 ML SYRINGE IVFLUSH (09:14)
--- NOTE | 2023-04-17 09:35 | HO.PM.IMPN ---
Subjective Subjective Date of Service: 04/17/23 Interval History: Seen and evaluated feeling weak and tired with no energy not eating much coughing Review of Systems Review of Systems: Yes all other systems are reviewed and are negative Physical Exam Vital Signs: Vital Signs: Last Vital Signs Temp 96.8 F 04/17/23 08:00 Pulse 93 04/17/23 08:00 Resp 18 04/17/23 08:00 BP 143/70 H 04/17/23 08:00 Pulse Ox 95 04/17/23 08:00 O2 Del Method Room Air 04/17/23 08:00 BMI result Body Mass Index 28.1 Const: Other: Constitutional : Awake, interactive, not in distress Neck : Normal inspection, Supple Cardiovascular : RRR, no JVP, no lower extremity edema Respiratory : decreased bilateral air entry, no crackles, expiratory wheezes bilaterally Gastrointestinal: soft, lax, Normal bowel sounds, Non tender Skin : Warm, Dry Neurological : Alert & oriented x3, No focal deficit Objective Data Active Medications Acetaminophen (Acetaminophen 325 Mg Tablet) 650 mg PO Q6H PRN PRN Reason: Pain, Mild (Pain Scale 1-3) Last Admin: 04/17/23 09:10 Dose: 650 mg Documented By: ROX Albuterol Sulfate (Albuterol Sulfate 90 Mcg 8 Gm Inhaler) 2 puff INHALE Q4H PRN PRN Reason: shortness of breath or wheezing Albuterol Sulfate (Albuterol Sulfate (0.083%) 2.5 Mg/3 Ml Vial.Neb) 2.5 mg INHALE Q3H PRN PRN Reason: sob Last Admin: 04/17/23 07:06 Dose: 2.5 mg Documented By: CEE Amlodipine Besylate (Amlodipine Besylate 10 Mg Tablet) 10 mg PO DAILY [facility]; Protocol Last Admin: 04/17/23 09:10 Dose: 10 mg Documented By: ROX Aripiprazole (Aripiprazole 20 Mg Tablet) 20 mg PO DAILY [facility] Last Admin: 04/17/23 09:10 Dose: 20 mg Documented By: ROX Atorvastatin Calcium (Atorvastatin Calcium 20 Mg Tablet) 20 mg PO DAILY [facility] Last Admin: 04/17/23 09:09 Dose: 20 mg Documented By: ROX Bisacodyl (Bisacodyl 5 Mg Tablet.) 10 mg PO BEDTIME [facility] Last Admin: 04/16/23 20:35 Dose: 10 mg Documented By: JOHNSON Carvedilol (Carvedilol 6.25 Mg Tablet) 6.25 mg PO BID [facility]; Protocol Last Admin: 04/17/23 09:10 Dose: 6.25 mg Documented By: ROX Clonazepam (Clonazepam 0.5 Mg Tablet) 0.5 mg PO Q8H PRN PRN Reason: anxiety Clopidogrel Bisulfate (Clopidogrel Bisulfate 75 Mg Tablet) 75 mg PO DAILY [facility] Last Admin: 04/17/23 09:10 Dose: 75 mg Documented By: ROX Enoxaparin Sodium (Enoxaparin Sodium 40 Mg/0.4 Ml Syringe) 40 mg SUBCUT Q24H [facility] Last Admin: 04/16/23 14:18 Dose: 40 mg Documented By: PHANI Folic Acid (Folic Acid 1 Mg Tablet) 1 mg PO DAILY [facility] Last Admin: 04/17/23 09:10 Dose: 1 mg Documented By: ROX Gabapentin (Gabapentin 100 Mg Capsule) 200 mg PO BID [facility] Last Admin: 04/17/23 09:09 Dose: 200 mg Documented By: ROX Guaifenesin (Guaifenesin La 600 Mg Tab.Er.12h) 600 mg PO BID [facility] Last Admin: 04/17/23 09:09 Dose: 600 mg Documented By: ROX Hydroxyzine HCl (Hydroxyzine Hcl 10 Mg Tablet) 10 mg PO Q8H PRN PRN Reason: Anxiety Lactated Ringer's (Lr) 1,000 mls @ 80 mls/hr IVCONT .[id number] [facility] Last Admin: 04/17/23 02:58 Dose: 80 mls/hr Documented By: MARÍA Insulin Glargine (Insulin Glargine,Hum.Rec.Anlog 100 Unit/Ml 10 Ml Vial) 20 unit SUBCUT DAILY [facility] Last Admin: 04/17/23 09:14 Dose: 20 unit Documented By: ROX Insulin Human Lispro (Insulin Lispro 100 Unit/Ml 3 Ml Vial) 0 unit SUBCUT QIDACHS [facility]; Protocol Last Admin: 04/17/23 08:00 Dose: Not Given Documented By: ROX Non-Admin Reason: No Insulin Coverage Levothyroxine Sodium (Levothyroxine Sodium 100 Mcg Tablet) 100 mcg PO DAILY@0600 [facility] Last Admin: 04/17/23 05:37 Dose: 100 mcg Documented By: MARÍA Losartan Potassium (Losartan Potassium 50 Mg Tablet) 50 mg PO DAILY [facility]; Protocol Last Admin: 04/17/23 09:09 Dose: 50 mg Documented By: ROX Naproxen (Naproxen 500 Mg Tablet) 500 mg PO BID [facility] Last Admin: 04/17/23 09:10 Dose: 500 mg Documented By: ROX Non-Formulary Medication (Linaclotide [Linzess]) 290 mcg PO QAM [facility] Omeprazole (Omeprazole 20 Mg Capsule.Dr) 20 mg PO DAILY@0630 [facility] Last Admin: 04/17/23 05:37 Dose: 20 mg Documented By: MARÍA Ondansetron HCl (Ondansetron Hcl 4 Mg/2 Ml Vial) 4 mg IVPUSH Q8H PRN PRN Reason: Nausea and Vomiting Prazosin HCl (Prazosin Hcl 1 Mg Capsule) 6 mg PO BEDTIME [facility]; Protocol Last Admin: 04/16/23 20:34 Dose: 6 mg Documented By: JOHNSON Sodium Chloride (0.9 % Sodium Chloride Flush 3 Ml Syringe) [facility] Last Admin: 04/17/23 09:14 Dose: 3 ml Documented By: ROX Sucralfate (Sucralfate Oral Suspension 1 Gm/10 Ml Oral.Susp) 1 gm PO BID [facility] Last Admin: 04/17/23 09:09 Dose: 1 gm Documented By: ROX Venlafaxine HCl (Venlafaxine Hcl Er 150 Mg Cap.Er.24h) 150 mg PO DAILY [facility] Last Admin: 04/17/23 09:09 Dose: 150 mg Documented By: ROX Vitamin D (Cholecalciferol (Vitamin D3) 25 Mcg Tablet) 50 mcg PO DAILY [facility] Last Admin: 04/17/23 09:10 Dose: 50 mcg Documented By: ROX Labs 04/16/23 11:08 04/17/23 05:19 Labs: Laboratory Results - last 24 hr 04/16/23 04/16/23 04/16/23 11:08 11:33 11:38 MCV 84.1 MCH 27.0 MCHC 32.0 RDW 15.5 Plt Count 260 MPV 9.9 Immature Gran % (Auto) 0.7 H Neut % (Auto) 75.6 H Lymph % (Auto) 20.5 [place] % (Auto) 2.7 Eos % (Auto) 0.2 Baso % (Auto) 0.3 Lymph # (Auto) 2.5 [place] # (Auto) 0.3 Eos # (Auto) 0.0 Baso # (Auto) 0.0 Abs Immat Gran (auto) 0.09 H Absolute Neuts (auto) 9.3 H Absolute Nucleated RBC 0.000 Nucleated RBC % (auto) 0.0 VBG pH 7.50 H VBG pCO2 37 VBG pO2 179 VBG HCO3 29 H VBG O2 Saturation 97.0 VBG Base Excess 6.4 Anion Gap 13 Estim Creat Clear Calc 43.2 Estimated GFR 51 POC Glucose Random Glucose 66 Calcium 10.0 Total Bilirubin 0.4 AST 34 H ALT 34 H Alkaline Phosphatase 112 Total Protein 7.2 Albumin 3.9 Influenza Type A (PCR) NEGATIVE Influenza Type B (PCR) NEGATIVE RSV RNA Qual (PCR) POSITIVE A SARS-CoV-2 RNA (RT-PCR) NEGATIVE 04/16/23 04/16/23 04/16/23 11:58 13:01 16:22 MCV MCH MCHC RDW Plt Count MPV Immature Gran % (Auto) Neut % (Auto) Lymph % (Auto) [place] % (Auto) Eos % (Auto) Baso % (Auto) Lymph # (Auto) [place] # (Auto) Eos # (Auto) Baso # (Auto) Abs Immat Gran (auto) Absolute Neuts (auto) Absolute Nucleated RBC Nucleated RBC % (auto) VBG pH VBG pCO2 VBG pO2 VBG HCO3 VBG O2 Saturation VBG Base Excess Anion Gap Estim Creat Clear Calc Estimated GFR POC Glucose 55 L* 220 H 278 H Random Glucose Calcium Total Bilirubin AST ALT Alkaline Phosphatase Total Protein Albumin Influenza Type A (PCR) Influenza Type B (PCR) RSV RNA Qual (PCR) SARS-CoV-2 RNA (RT-PCR) 04/16/23 04/17/23 04/17/23 20:20 05:19 07:35 MCV MCH MCHC RDW Plt Count MPV Immature Gran % (Auto) Neut % (Auto) Lymph % (Auto) [place] % (Auto) Eos % (Auto) Baso % (Auto) Lymph # (Auto) [place] # (Auto) Eos # (Auto) Baso # (Auto) Abs Immat Gran (auto) Absolute Neuts (auto) Absolute Nucleated RBC Nucleated RBC % (auto) VBG pH VBG pCO2 VBG pO2 VBG HCO3 VBG O2 Saturation VBG Base Excess Anion Gap 15 Estim Creat Clear Calc 44.5 Estimated GFR 53 POC Glucose 310 H 141 H Random Glucose 135 H Calcium 9.1 D Total Bilirubin AST ALT Alkaline Phosphatase Total Protein Albumin Influenza Type A (PCR) Influenza Type B (PCR) RSV RNA Qual (PCR) SARS-CoV-2 RNA (RT-PCR) Assessment and Plan (1) Acute bronchitis due to respiratory syncytial virus (RSV): Status: Acute (2) Respiratory syncytial virus (RSV): Status: Acute Plan A 73 years old lady with PMH of DMII, HTN, HLD, GERD, RA, Depression among others who presents with SOB and weakness. Acute bronchitis 2/2 RSV infection complicated w physical deconditioning Continue Supportive therapy: IVF, cough medicine Cot[place]ue Steroids PT evaluation O2 as needed Duonebs Hypoglycemia secondary to diabetes Given replacement Lantus SSI diabetic diet HLD Statin CAD Resume Plavix and continue beta-gomez HTN Amlodipine, Losartan History of depression continue home meds DVT prophylaxis Lovenox Quality Stroke Does the patient have a stroke diagnosis?: No VTE Prior VTE?: No VTE Risk Level:: Medical - moderate - high VTE Device Contraindication: Treatment Not Indicated VTE Drug Contraindication: N/A - Med Ordered
--- NOTE | 2023-04-17 11:05 | MHC.CM.PN ---
Addendum entered by Teri Underwood 04/17/23 11:14: HCP is on file. Original Note: ARLYN 04/17/23 Female 73 DX Bronchitis. Patient lives alone with assist from SYSTEM ARCHIVE ANALYST. SYSTEM ARCHIVE ANALYST services provided by [employer] thru [employer]. She uses a walker or cane prn to ambulate safely. DP home resume SYSTEM ARCHIVE ANALYST services. SYSTEM ARCHIVE ANALYST will provide transportation home. .
[2023-04-17 11:27] LABS: Glucose, Whole Blood 288 mg/dL (60-115)
[2023-04-17] MEDS: Albuterol/Iprat 2.5/0.5MG 3 ML AMPUL.NEB INHALE ×3 (11:34→20:00)
[2023-04-17] MEDS: Benzonatate 100 MG CAPSULE 200 MG PO ×3 (12:04→21:20)
[2023-04-17] MEDS: Insulin Lispro 100 UNIT/ML 3 ML VIAL SUBCUT (12:05)
[2023-04-17] MEDS: PT OWN (Linaclotide [Linzess] 290 mcg capsule) 290 EACH PO (12:43)
[2023-04-17] MEDS: Enoxaparin Sodium 40 MG/0.4 ML SYRINGE SUBCUT (14:23)
[2023-04-17 16:44] LABS: Glucose, Whole Blood 149 mg/dL (60-115)
[2023-04-17 21:01] LABS: Glucose, Whole Blood 129 mg/dL (60-115)
[2023-04-17] MEDS: bisacodyL 5 MG TABLET.DR 10 MG PO (21:19)
[2023-04-17] MEDS: Prazosin HCL 1 MG CAPSULE 6 MG PO (21:20)
[2023-04-18] VITALS (8 sets, daily range): BP systolic 128–181; BP diastolic 61–80; PULSE 83–100; RESP 17–20; TEMP 36.3–36.8; O2SAT 93–95
[2023-04-18 01:28] LABS: Glucose, Whole Blood 50 mg/dL (60-115)
[2023-04-18 02:02] LABS: Glucose, Whole Blood 160 mg/dL (60-115)
--- NOTE | 2023-04-18 03:38 | PC.NURSE ---
0125 PATIENT AWAKENED AND FELT WEAK, HUNGRY, AND THAT HER BLOOD SUGAR FELT LOW. GRINDER SETUP OPERATOR CHECKED POC WITH RESULTS OF 50, PT ALERT, APPROPRIATE COLOR, WNL, SKIN W/D, AND WILLING TO EAT AND DRINK. NOTED PT COULD CHEW AND SWALLOW SAFELY. PT CONSUMED 2 JUICES, CRACKERS, AND A PUDDING IN REASONABLE TIME WITH MINIMAL ASSISTANCE. SHE STATED TO FEEL BETTER AFTER SNACK. BLOOD SUGAR RECHECKED AN INCREASED TO 160 AT 0155. HOSPITALIST ON DUTY WAS UPDATED ON EVENT AND DETAILS. WILL CONTINUE TO MONITOR.
[2023-04-18] MEDS: Lactated Ringers 1,000 ML 80 ML IVCONT (04:26)
[2023-04-18] MEDS: Albuterol Sulfate (0.083%) 2.5 MG/3 ML VIAL.NEB INHALE (04:31)
[2023-04-18] MEDS: Omeprazole 20 MG CAPSULE.DR PO (06:03)
[2023-04-18] MEDS: Levothyroxine Sodium 100 MCG TABLET PO (06:03)
[2023-04-18 07:48] LABS: Glucose, Whole Blood 280 mg/dL (60-115)
[2023-04-18] MEDS: Albuterol/Iprat 2.5/0.5MG 3 ML AMPUL.NEB INHALE ×2 (07:56→11:16)
[2023-04-18] MEDS: Gabapentin 100 MG CAPSULE 200 MG PO (08:10)
[2023-04-18] MEDS: carvediloL 6.25 MG TABLET PO (08:10)
[2023-04-18] MEDS: Insulin Lispro 100 UNIT/ML 3 ML VIAL SUBCUT ×2 (08:10→11:50)
[2023-04-18] MEDS: Atorvastatin Calcium 20 MG TABLET PO (08:10)
[2023-04-18] MEDS: Cholecalciferol (Vitamin D3) 25 MCG TABLET 50 MCG PO (08:10)
[2023-04-18] MEDS: Venlafaxine HCl ER 150 MG CAP.ER.24H PO (08:10)
[2023-04-18] MEDS: amLODIPine Besylate 10 MG TABLET PO (08:10)
[2023-04-18] MEDS: Insulin Glargine,Hum.rec.anlog 100 UNIT/ML 10 ML VIAL 20 UNIT SUBCUT (08:11)
[2023-04-18] MEDS: Clopidogrel Bisulfate 75 MG TABLET PO (08:11)
[2023-04-18] MEDS: Folic Acid 1 MG TABLET PO (08:11)
[2023-04-18] MEDS: NaPROXEN 500 MG TABLET PO (08:11)
[2023-04-18] MEDS: guaiFENesin LA 600 MG TAB.ER.12H PO (08:11)
[2023-04-18] MEDS: Sucralfate Oral Suspension 1 GM/10 ML ORAL.SUSP PO (08:11)
[2023-04-18] MEDS: Losartan Potassium 50 MG TABLET PO (08:11)
[2023-04-18] MEDS: ARIPiprazole 20 MG TABLET PO (08:11)
[2023-04-18] MEDS: Benzonatate 100 MG CAPSULE 200 MG PO (08:11)
[2023-04-18] MEDS: PT OWN (Linaclotide [Linzess] 290 mcg capsule) 290 EACH PO (08:15)
[2023-04-18] MEDS: 0.9 % Sodium Chloride Flush 3 ML SYRINGE IVFLUSH (08:27)
--- NOTE | 2023-04-18 10:56 | PM.DS ---
DS: Providers Provider Date of Service: 04/18/23 Date of admission: 04/16/23 13:35 Primary care physician: Pascual Darnell MD DS: Diagnosis Discharge Diagnosis (1) Acute bronchitis due to respiratory syncytial virus (RSV): Status: Acute (2) Respiratory syncytial virus (RSV): Status: Acute (3) Asthma: Status: Inactive DS: Summary Hospital Course Hospital Course: Admission note HPI A 73 years old lady with PMH of DMII, HTN, HLD, GERD, RA, Depression among others who presents with SOB and weakness. The patient reported feeling sick for a week now. she was evaluated earlier this week at ER and found to be positive for RSV. did not feel any better on supportive measures at home. reporting increase weakness, cough, decrese PO intake and feeling fatigued with no energy. denies any fever or chills. No chest pain, palpitations, nausea, vomiting, diarrhea or urinary symptoms. In ED she tested positive again for RSV. CXR did not show any acute findings. Hospital course Admitted for treatment of Acute bronchitis and asthma exacerbation secondary to RSV infection complicated w physical deconditioning. Treated with Supportive therapy: IVF, cough medicine along with Cotninue Steroids and duonebs with good response over the course of hospital stay as she was able to ambulate on room air. Seen by PT for evaluation who recommended home PT. She had one episode of Hypoglycemia secondary to insulin. recovered well with oral juice. to continue her home dose Insulin on discharge. Continue Prednisone as prescribed Use Nebulizer; Duonebs for the next week, Albuterol as needed Cough medicine as prescribed drink plenty of fluids Tylenol and Advil for pain Time Attestation Discharge coordination time: Less than 30 minutes Quality: Safe Use of Opioids Does Pt have an Active Cancer Diagnosis on the Problem List?: No Quality: Stroke Does the patient have a stroke diagnosis?: No Physical Exam Vital Signs: Vital Signs: Last Vital Signs Temp 98.3 F 04/18/23 07:30 Pulse 97 04/18/23 10:26 Resp 18 04/18/23 07:56 BP 172/80 H 04/18/23 07:30 Pulse Ox 95 04/18/23 07:30 O2 Del Method Room Air 04/18/23 07:30 BMI result Body Mass Index 28.1 Const: Other: Constitutional : Awake, interactive, not in distress Neck : Normal inspection, Supple Cardiovascular : RRR, no JVP, no lower extremity edema Respiratory : fair bilateral air entry, no crackles, no wheezes Gastrointestinal: soft, lax, Normal bowel sounds, Non tender Skin : Warm, Dry Neurological : Alert & oriented x3, No focal deficit DS: Data Data Completed and Pending Completed studies during hospitalization [Text1]: Procedures Drainage of Retroperitoneum, Percutaneous Approach (03/12/21) Release Peritoneum, Percutaneous Endoscopic Approach (01/02/21) Resection of Gallbladder, Percutaneous Endoscopic Approach (01/02/21) Transfusion of Nonautologous Red Blood Cells into Peripheral Vein, Percutaneous Approach (01/02/21) Labs on day of discharge: Laboratory Results - last 24 hr 04/17/23 04/17/23 04/17/23 11:23 16:37 20:56 POC Glucose 288 H 149 H 129 H 04/18/23 04/18/23 04/18/23 01:25 01:58 07:36 POC Glucose 50 L* 160 H 280 H Imaging Chest x-ray: Radiologist's impression: ITS Impressions Chest X-Ray 04/16/23 12:06 IMPRESSION: No acute cardiopulmonary disease. Discharge Plan Discharge Anticipated Discharge Date/Time: 04/18/23 10:25 Patient Disposition: Home Health Service Discharge Diagnosis: RSV Virus infection Asthma exacerbation Referrals: Pascual Darnell MD [Primary Care Provider] - 1 Week Discharge Medications: New ipratropium-albuterol 0.5 mg-3 mg(2.5 mg base)/3 mL Solution For Nebulization 3 ml inhalation RQ4H WHILE AWAKE 7 Days Qty: 180 2RF albuterol sulfate 2.5 mg /3 mL (0.083 %) Solution For Nebulization 2.5 mg inhalation Q3H PRN (Reason: sob) Qty: 180 2RF guaifenesin [Mucinex] 600 mg Tablet Extended Release 12hr 600 mg PO BID Qty: 14 0RF benzonatate 100 mg Capsule 200 mg PO TID Qty: 30 0RF prednisone 20 mg tablet 40 mg PO DAILY Qty: 6 0RF (DME) nebulizers Misc See Rx Instructions .Route Qty: 1 0RF Rx Instructions: As directed Continued (DME) insulin syringe-needle U-100 [BD Insulin Syringe Ultra-Fine] 0.3 mL 31 gauge x 5/16 syringe See Rx Instructions .ROUTE .MEDSUPPLY Qty: 100 0RF Rx Instructions: As directed 3 times per day (DME) FreeStyle Lite Strips Strip See Rx Instructions .ROUTE .MEDSUPPLY Qty: 200 11RF Rx Instructions: 8 times a day (DME) blood-glucose meter [FreeStyle Lite Meter] Kit See Rx Instructions .ROUTE .MEDSUPPLY Qty: 1 0RF Rx Instructions: As directed (DME) pen needle, diabetic [BD Cherelle 2nd Gen Pen Needle] 32 gauge x 5/32 needle See Rx Instructions .MEDSUPPLY Qty: 200 7RF Rx Instructions: 5 times a day Baqsimi 3 mg/actuation spray,non-aerosol 3 mg intranasal ONCE 30 Days Qty: 2 6RF Rx Instructions: [place] once for severe hypoglycemia when patient cannot self-treat with glucose. Afterwards turn on side. May repeat after 15 minutes if patient does not respond. Fiasp FlexTouch U-100 Insulin 100 unit/mL (3 mL) insulin pen 2 - 14 unit subcut QID Qty: 15 6RF calcium citrate 200 mg (950 mg) tablet 400 mg PO BID Qty: 120 4RF Enbrel SureClick 50 mg/mL (1 mL) pen injector 50 mg subcut QWEEK Qty: 4 2RF cholecalciferol (vitamin D3) [Vitamin D3] 50 mcg (2,000 unit) capsule 50 mcg PO QAM Qty: 30 4RF carvedilol 6.25 mg tablet 6.25 mg PO BID 90 Days Qty: 180 2RF clopidogrel 75 mg tablet 75 mg PO QAM Qty: 30 7RF Tresiba FlexTouch U-100 100 unit/mL (3 mL) insulin pen 30 unit subcut DAILY Qty: 15 3RF folic acid 1 mg Tablet 1 mg PO DAILY Qty: 90 4RF clonazepam 0.5 mg tablet 1 tab PO Q8H PRN (Reason: anxiety) albuterol sulfate 90 mcg/actuation HFA aerosol inhaler 2 puff inhalation Q4-6H PRN (Reason: shortness of breath or wheezing) Qty: 8.5 0RF venlafaxine [Effexor XR] 150 mg capsule,extended release 24hr 150 mg PO DAILY hydroxyzine HCl 10 mg tablet 10 mg PO Q8H PRN (Reason: Anxiety) amlodipine 10 mg tablet 10 mg PO DAILY albuterol sulfate [Ventolin HFA] 90 mcg/actuation HFA aerosol inhaler 2 puff PO Q4-6H PRN (Reason: Shortness Of Breath Or Wheezing) losartan 50 mg tablet 50 mg PO QAM prazosin 2 mg capsule 6 mg PO BEDTIME levothyroxine 100 mcg tablet 100 mcg PO QAM (DME) Dexcom G6 Automatic 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 Misc See Rx Instructions .Route Rx Instructions: As directed gabapentin 100 mg capsule 200 mg PO BID aripiprazole 20 mg tablet 20 mg PO DAILY meloxicam 15 mg tablet 15 mg PO DAILY bisacodyl 5 mg tablet,delayed release (DR/EC) 10 mg PO BEDTIME Qty: 60 6RF Linzess 290 mcg capsule 290 mcg PO QAM 30 Days Qty: 30 6RF esomeprazole magnesium 40 mg capsule,delayed release(DR/EC) 40 mg PO DAILY Qty: 30 6RF sucralfate 100 mg/mL suspension 10 ml PO BID atorvastatin 20 mg tablet 20 mg PO DAILY Discharge Orders: Discharge Order (Routine); Ordered 04/18/23 Ordered By: Pamela Butler Diet: Advance to usual diet Activity on Discharge: As tolerated Stand Alone Forms: Patient Portal Discharge page Care Plan Goals: Read below Health Concerns: Read below Plan of Treatment: Read below Assessment: You were admitted for treatment of asthma exacerbation and RSV virus infection Continue Prednisone as prescribed Use Nebulizer; Duonebs for the next week, Albuterol as needed Cough medicine as prescribed drink plenty of fluids Tylenol and Advil for pain
[2023-04-18] MEDS: Acetaminophen 325 MG TABLET 650 MG PO (11:11)
[2023-04-18 11:21] LABS: Glucose, Whole Blood 216 mg/dL (60-115)
--- NOTE | 2023-04-18 12:14 | MHC.CM.PN ---
Addendum entered by Teri Underwood 04/18/23 12:58: All discharge info including Face 2 Face have been sent. Original Note: Per MD rounds patient is discharged today. Home services ordered. Preferences obtained, [facility] request. They have accepted the case. The patient has arranged for transportation home. Her ORNAMENTAL IRONWORKER HELPER will provide transport.
--- NOTE | 2023-04-18 12:28 | W.MHC.F2F ---
Service Date Service Date: 04/18/23 Encounter Date of encounter: 04/18/23 Reasons for Services Signs and symptoms assessed: PHysical deconditioning new Nebulizer Reason for half-way: medication management and teach disease management Reason for physical therapy: home safety and mobility and therapeutic exercises Homebound: Leaving the home is medically contraindicated at this time without the asist of a device and/or another person due th the listed conditions above and below. Reason homebound: unsteady gait / fall risk and unable to drive Certification: Based on the above findings, I certify that this patient is confined to the home and needs intermittent half-way care, physical therapy and/or speech therapy, or continues to need occupational therapy. The patient is under my care, and I have initiated the establishment of the plan of care. The patient will be followed by a physician who will periodically review the plan of care. Time Spent With Patient Time: Total time managing care of this patient today ____ minutes.
== END 2023-04-18 13:30 | disposition home health service (06) ==
LOC: HO.ED 11:11 → HO.EDOVER 13:43 → HO.S3 16:28
PROVIDERS: Physician Assistant Medical; Admitting Provider Student in an Organized Health Care Education/Training Program; Emergency Provider Emergency Medicine Emergency Medical Services; PCP Internal Medicine; Visit Provider Student in an Organized Health Care Education/Training Program
DX: J20.5 Acute bronchitis due to respiratory syncytial virus (principal); J45.901 Unspecified asthma with (acute) exacerbation; R06.02 Shortness of breath; I10 Essential (primary) hypertension; I25.10 Atherosclerotic heart disease of native coronary artery without angina pectoris; E11.649 Type 2 diabetes mellitus with hypoglycemia without coma; E78.5 Hyperlipidemia, unspecified; M06.9 Rheumatoid arthritis, unspecified; F32.A Depression, unspecified; Z79.899 Other long term (current) drug therapy; Z20.822 Contact with and (suspected) exposure to COVID-19; Z20.828 Contact with and (suspected) exposure to other viral communicable diseases
CPT/HCPCS: 0241U; 36415; 71045; 80048; 80053; 82803; 82947; 84484; 85025; 93005; 94640; 96361; 96372; 96374; 97116; 97162; 99221; 99285; J1650; J2930; J7120

== ENCOUNTER → 2023-04-16 11:42 | Outpatient (BNV) | payer OTHER, SELFPAY | PROVIDERS: Admitting Provider Student in an Organized Health Care Education/Training Program; Emergency Provider Emergency Medicine Emergency Medical Services; PCP Internal Medicine; Visit Provider Internal Medicine | DX: R06.00 Dyspnea, unspecified (principal) | CPT/HCPCS: 93010 ==

== ENCOUNTER → 2023-04-16 13:35 | Outpatient (BNV) | payer OTHER, SELFPAY | PROVIDERS: Admitting Provider Student in an Organized Health Care Education/Training Program; Emergency Provider Emergency Medicine Emergency Medical Services; PCP Internal Medicine; Visit Provider Student in an Organized Health Care Education/Training Program | DX: J20.5 Acute bronchitis due to respiratory syncytial virus (principal); B33.8 Other specified viral diseases; J45.909 Unspecified asthma, uncomplicated | CPT/HCPCS: 99222; 99232; 99238; G0180 ==

== ENCOUNTER 2023-04-30 13:02 | Outpatient (AMB) | payer OTHER, SELFPAY ==
--- NOTE | 2023-04-30 13:22 | A.OFFVIS_ITS ---
Intake Vital Signs 04/30/23 13:23 Height 4 ft 9 in Weight 160 lb 0.889 oz BMI 34.6 BP 120/64 Blood Pressure Location Rt brachial Position Sitting Pulse 83 Pulse Source Pulse Oximeter Intake Visit Reasons: follow-up [facility] ED Intake Note: f/up pt its feeling fine some shortness of breath due to getting RSV. Multimedia Journalist Required: Yes Multimedia Journalist Name: [email or web address] Accompanied by: Employee Allergies lorazepam [LORAZEPAM] Allergy (Severe, Verified 04/16/23 11:00) DELIRIUM celecoxib [From Celebrex] Allergy (Intermediate, Verified 04/16/23 11:00) ITCHING tramadol [TRAMADOL] Allergy (Intermediate, Verified 04/16/23 11:00) ITCHING zolpidem [Ambien] Allergy (Unknown, Verified 04/16/23 11:00) unknown Medication List - Last Reconciled 04/30/23 by Charleen Taveras, AAKASH albuterol sulfate 90 mcg/actuation 2 puffs inhalation Q4-6H PRN albuterol sulfate 2.5 mg (3 mL) inhalation Q3H PRN albuterol sulfate 90 mcg/actuation (Ventolin HFA) 2 puffs PO Q4-6H PRN amlodipine 10 mg PO DAILY aripiprazole 20 mg PO DAILY atorvastatin 20 mg PO DAILY BD Cherelle 2nd Gen Pen Needle (pen needle, diabetic) 5 times a day NS benzonatate 200 mg (2 x 100 mg) PO TID bisacodyl 10 mg (2 x 5 mg) PO BEDTIME blood sugar diagnostic (FreeStyle Lite Strips) TEST BLOOD SUGAR 8 TIMES EVERY DAY blood-glucose meter (FreeStyle Lite Meter kit) As directed blood-glucose meter,continuous (Dexcom G6 Recreation Therapy Aide) As directed calcium citrate 400 mg (2 x 200 mg (950 mg)) PO BID carvedilol 6.25 mg PO BID 90 days cholecalciferol (vitamin D3) (Vitamin D3) 50 mcg PO QAM clonazepam 1 tab PO Q8H PRN clopidogrel 75 mg PO QAM Enbrel SureClick (etanercept) 50 mg subcut QWEEK NS esomeprazole magnesium 40 mg PO DAILY folic acid 1 mg PO DAILY gabapentin 200 mg PO BID glucagon 3 mg/actuation (Baqsimi) 3 mg intranasal ONCE 30 days guaifenesin ER (Mucinex) 600 mg PO BID hydroxyzine HCl 10 mg PO Q8H PRN insulin aspart (niacinamide) 100 unit/mL (3 mL) (Fiasp FlexTouch U-100 Insulin) 2 - 14 units subcut QID insulin degludec (Tresiba FlexTouch U-100 insulin) 30 units (0.3 mL) subcut DAILY insulin syringe-needle U-100 (BD Insulin Syringe Ultra-Fine) As directed 3 times per day ipratropium-albuterol 0.5 mg-3 mg(2.5 mg base)/3 mL 3 mL inhalation RQ4H WHILE AWAKE 7 days levothyroxine 100 mcg PO QAM linaclotide (Linzess) 290 mcg PO QAM 30 days losartan 50 mg PO QAM meloxicam 15 mg PO DAILY nebulizers As directed prazosin 6 mg PO BEDTIME prednisone 40 mg (2 x 20 mg) PO DAILY sucralfate 10 mL PO BID venlafaxine ER (Effexor XR) 150 mg PO DAILY HPI HPI Comments History of Present Illness Details 73*year-old female presents today for a follow-up after being hospitalized for RSV. She states she has slowly started to feel better. She reports some palpitations when her lungs are tight but has gone away as she started to feel better and reports she didn't have them before she got sick. She seen her PCP today and has no concerns. [facility] Medical History Hypothyroidism (04/21/1959) Hyperlipidemia (04/21/1959) Depressive disorder (04/21/1959) Recurrent falls (12/04/11) Nutritional anemia (04/21/1959) Iron deficiency anemia (04/21/1959) Fibromyositis (04/21/1959) Eczema (04/21/1959) High risk medication use Hepatitis C antibody positive in blood Screening for osteoporosis Screening for viral disease Joint swelling Overweight (BMI 25.0-29.9) Neck pain Swelling of knee joint, right Intra-abdominal abscess Diabetes Elevated liver function tests Intestinal malabsorption following gastrectomy Obesity (BMI 30-39.9) 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 Hypertension Cholecystitis Hyperlipidemia, unspecified Essential hypertension Atherosclerotic cardiovascular disease NSTEMI (non-ST elevated myocardial infarction) Fibromyalgia Folliculitis Anxiety Depression History of myocardial infarction Diabetes type 1, uncontrolled Hyperparathyroidism due to vitamin D deficiency Dyslipidemia Rona's disease Hypothyroidism Surgical History History of bypass gastroenterostomy (11/13/17) S/P laparoscopic cholecystectomy Status post gastric bypass for obesity History of esophagogastroduodenoscopy (EGD) H/O colonoscopy History of laparoscopic cholecystectomy History of bladder suspension procedure Status post laser cataract surgery of both eyes Hx of appendectomy H/O gastric bypass Family History Father No problems noted. Mother CVA (cerebral vascular accident) Sister Hypertension Brother Hypertension Liver cancer Social History Household Members: None Housing: Apartment Are you a primary director of home care hospice to a significant other at home: No Do you presently have visiting nurse or other home services: Yes Unable to assess alcohol history related to: Unable to respond Alcohol intake: never Patient Tobacco Use Status: Never used Tobacco service: No Current occupational status: disabled Review of Systems Const Reports chills, Reports fatigue, Reports fever(s), Reports frequent falls, Reports weakness, Reports weight gain and Reports weight loss ENT Reports dizziness Card Reports chest pain, Reports leg edema, Reports lightheadedness, Reports palpitations, Reports dyspnea and Reports dyspnea on exertion Resp Reports cough, Reports dyspnea and Reports dyspnea on exertion GI Reports hematochezia Musc Reports abnormal gait, Reports muscle weakness, Reports numbness, Reports radiating pain into limb and Reports tingling Neuro Reports abnormal gait, Reports dizziness, Reports frequent falls, Reports numbness, Reports tingling and Reports weakness Endo Reports fatigue and Reports palpitations Physical Exam Vital Signs: Last Vital Signs Pulse 83 04/30/23 13:23 BP 120/64 04/30/23 13:23 BMI result Body Mass Index 34.6 Const General: healthy appearing and no acute distress Orientation/consciousness: patient oriented x3 HEENT Head: Yes normal to inspection Eyes General: appearance normal, both eyes and all related structures Neck Neck: Yes normal visual inspection Chest Chest palpation & inspection: normal inspection of the chest Resp Effort & Inspection: normal respiratory effort Auscultation: clear to auscultation bilaterally Cardio Jugular venous distension: no JVD Palpation: normal PMI Rate: regular rate Rhythm: regular rhythm Heart sounds: S1 normal heart sound present, S2 normal heart sound present, no click, no gallops, no murmurs and no rubs GI Inspection: Yes normal to inspection Palpation (GI): Soft to palpation Skin General skin exam: no rashes or lesions noted Neuro General: patient oriented x3 Extrem General: Yes normal to inspection Psych Appearance: grossly normal Assessment & Plan Assessment & Plan (1) Essential hypertension: Code(s): I10 - Essential (primary) hypertension (2) Atherosclerotic cardiovascular disease: Code(s): I25.10 - Atherosclerotic heart disease of [place] coronary artery without angina pectoris (3) Shortness of breath: Code(s): R06.02 - Shortness of breath Plan Blood pressure today is within normal limits. No reports of any cardiac symptoms. She is short of breath secondary to RSV. Heart healthy diet and adequate hydration discussed. Coding Level of Care Code Est Pt Level 3 (30487) Diagnoses Essential hypertension I10 Atherosclerotic cardiovascular disease I25.10 Shortness of breath R06.02
[2023-04-30 13:23] VITALS: BP 120/64; PULSE 83; BMI 34.6
== END 2023-04-30 13:55 | disposition home or self-care (01) ==
PROVIDERS: Visit Provider Nurse Practitioner
DX: I25.10 Atherosclerotic heart disease of native coronary artery without angina pectoris (principal); I10 Essential (primary) hypertension; R06.02 Shortness of breath
CPT/HCPCS: 99213

== ENCOUNTER → 2023-04-30 13:02 | Outpatient (BNVA) | payer OTHER, SELFPAY | PROVIDERS: Visit Provider Nurse Practitioner | DX: I10 Essential (primary) hypertension (principal); I25.10 Atherosclerotic heart disease of native coronary artery without angina pectoris; R06.02 Shortness of breath | CPT/HCPCS: 99212 ==

== ENCOUNTER 2023-05-15 09:43 | Outpatient (REF) | payer OTHER, SELFPAY ==
[2023-05-15 09:55] LABS: MANUAL DIFF FLAG NO
[2023-05-15 10:58] LABS: Basophils Absolute Auto 0.1 X10*3/uL (0.0-0.2); Basophils Percent Auto 1.4 % (0-2); Eosinophils Absolute Auto 0.8 X10*3/uL (0.0-0.4); Eosinophils Percent Auto 9.4 % (0-4); Hematocrit 36.5 % (37.0-47.0); Hemoglobin 11.5 g/dl (12.0-16.0); Imm Gran Abs Auto 0.04 X10*3/uL (0.00-0.03); Imm Gran Pct Auto 0.5 % (0.0-0.4); Lymphocytes Absolute Auto 3.2 X10*3/uL (1.2-4.9); Mean Corpuscular HGB Conc 31.5 g/dl (31.0-35.0); Monocytes Absolute Auto 0.6 X10*3/uL (0.1-1.2); Monocytes Percent Auto 7.9 % (2-11); Neutrophils Absolute Auto 3.2 x10*3/uL (2.0-8.3); Neutrophils Percent Auto 40.8 % (45-73); Platelet Count 227 X10*3/uL (160-400); Red Cell Distribution Width 16.1 % (11.0-16.0)
[2023-05-15 11:25] LABS: Alanine Aminotransferase 25 U/L (0-31); Albumin Level 3.8 g/dL (3.5-5.0); Alkaline Phosphatase 107 U/L (39-117); Anion Gap 14 (12-20); Aspartate Amino Transferase 28 U/L (5-31); Bilirubin Total 0.3 mg/dL (0.0-1.0); Blood Urea Nitrogen 18 mg/dL (9-16); C Reactive Protein 0.53 mg/dL (< or = 0.50); Calcium 9.4 mg/dL (8.4-10.2); Carbon Dioxide 27 mmol/L (22-29); Chloride 103 mmol/L (96-108); Estimated Glomerular Filt Rate 46; Glucose Random 254 mg/dL (60-115); Potassium 3.9 mmol/L (3.3-5.1); Sodium 140 mmol/L (135-145); Total Protein 6.5 g/dL (6.5-8.0)
[2023-05-15 11:43] LABS: Erythrocyte Sedimentation Rate 11 MM/HR (0-20)
== END 2023-05-15 09:44 | disposition home or self-care (01) ==
LOC: HO.LAB 09:43
PROVIDERS: PCP Internal Medicine; Visit Provider Student in an Organized Health Care Education/Training Program
DX: M05.9 Rheumatoid arthritis with rheumatoid factor, unspecified (principal)
CPT/HCPCS: 36415; 80053; 85025; 85652; 86140

== ENCOUNTER 2023-05-19 10:30 | Outpatient (AMB) | payer OTHER, SELFPAY ==
--- NOTE | 2023-05-19 10:36 | A.OFFVIS_ITS ---
Intake Vital Signs 05/19/23 10:37 Height 4 ft 11 in Weight 158 lb 8.198 oz BMI 32.0 BP 140/90 H Blood Pressure Location Rt brachial Position Sitting Pulse 83 Pulse Source Pulse Oximeter Pulse Oximetry (%) 98 Oxygen Delivery Method Room Air Intake Visit Reasons: RA Intake Note: Patient last seen 03/27/23 presents today for follow up and test results. c/o right shoulder pain. Reports [facility] hospitalization. Requests Enbrel refill. 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 Name: [id number] Jose Miguel Allergies lorazepam [LORAZEPAM] Allergy (Severe, Verified 05/19/23 10:36) DELIRIUM celecoxib [From Celebrex] Allergy (Intermediate, Verified 05/19/23 10:36) ITCHING tramadol [TRAMADOL] Allergy (Intermediate, Verified 05/19/23 10:36) ITCHING zolpidem [Ambien] Allergy (Unknown, Verified 05/19/23 10:36) unknown Medication List - Last Reconciled 05/19/23 by Briseida Rocha MD albuterol sulfate 90 mcg/actuation 2 puffs inhalation Q4-6H PRN albuterol sulfate 2.5 mg (3 mL) inhalation Q3H PRN albuterol sulfate 90 mcg/actuation (Ventolin HFA) 2 puffs PO Q4-6H PRN amlodipine 10 mg PO DAILY aripiprazole 20 mg PO DAILY BD Cherelle 2nd Gen Pen Needle (pen needle, diabetic) 5 times a day NS bisacodyl 10 mg (2 x 5 mg) PO BEDTIME blood sugar diagnostic (FreeStyle Lite Strips) TEST BLOOD SUGAR 8 TIMES EVERY DAY blood-glucose meter (FreeStyle Lite Meter kit) As directed blood-glucose meter,continuous (Dexcom G6 Chocolate Dipper) As directed calcium citrate 400 mg (2 x 200 mg (950 mg)) PO BID cholecalciferol (vitamin D3) (Vitamin D3) 50 mcg PO QAM clonazepam 1 tab PO Q8H PRN clopidogrel 75 mg PO QAM Enbrel SureClick (etanercept) 50 mg subcut QWEEK NS esomeprazole magnesium 40 mg PO DAILY folic acid 1 mg PO DAILY glucagon 3 mg/actuation (Baqsimi) 3 mg intranasal ONCE 30 days guaifenesin ER (Mucinex) 600 mg PO BID hydroxyzine HCl 10 mg PO Q8H PRN insulin aspart (niacinamide) 100 unit/mL (3 mL) (Fiasp FlexTouch U-100 Insulin) 2 - 14 units subcut QID insulin degludec (Tresiba FlexTouch U-100 insulin) 30 units (0.3 mL) subcut DAILY insulin syringe-needle U-100 (BD Insulin Syringe Ultra-Fine) As directed 3 times per day ipratropium-albuterol 0.5 mg-3 mg(2.5 mg base)/3 mL 3 mL inhalation RQ4H WHILE AWAKE 7 days levothyroxine 100 mcg PO QAM linaclotide (Linzess) 290 mcg PO QAM 30 days losartan 50 mg PO QAM meloxicam 15 mg PO DAILY nebulizers As directed prazosin 6 mg PO BEDTIME sucralfate 10 mL PO BID venlafaxine ER (Effexor XR) 150 mg PO DAILY HPI HPI Comments History of Present Illness Details 73-year-old female with seropositive RA returns for follow-up. Patient was admitted to the hospital for an RSV infection last month and discharged on steroid taper. She has been on Enbrel regularly. She states that the left ring finger trigger injection did not help. She continues to have painful triggering of her left ring finger. Recently she has been having right shoulder pain. She is doing well otherwise. Initial history : This is a 72-year-old female who presents for evaluation of joint pain. Patient states that she started having pain and swelling of her hands and feet, ankles over the last 6 months associated with morning stiffness lasting 10 minutes. She has had back pain for years. Meloxicam is not helpful. She is unaware of any family history of autoimmune rheumatic disease. She denies any skin rashes. Denies any history of DVT/PE or recurrent abortions. [facility] Medical History Hypothyroidism (04/21/1959) Hyperlipidemia (04/21/1959) Depressive disorder (04/21/1959) Recurrent falls (12/04/11) Nutritional anemia (04/21/1959) Iron deficiency anemia (04/21/1959) Fibromyositis (04/21/1959) Eczema (04/21/1959) High risk medication use Hepatitis C antibody positive in blood Screening for osteoporosis Screening for viral disease Joint swelling Overweight (BMI 25.0-29.9) Neck pain Swelling of knee joint, right Intra-abdominal abscess Diabetes Elevated liver function tests Intestinal malabsorption following gastrectomy Obesity (BMI 30-39.9) 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 Hypertension Cholecystitis Hyperlipidemia, unspecified Essential hypertension Atherosclerotic cardiovascular disease NSTEMI (non-ST elevated myocardial infarction) Fibromyalgia Folliculitis Anxiety Depression History of myocardial infarction Diabetes type 1, uncontrolled Hyperparathyroidism due to vitamin D deficiency Dyslipidemia Rona's disease Hypothyroidism Surgical History History of bypass gastroenterostomy (11/13/17) S/P laparoscopic cholecystectomy Status post gastric bypass for obesity History of esophagogastroduodenoscopy (EGD) H/O colonoscopy History of laparoscopic cholecystectomy History of bladder suspension procedure Status post laser cataract surgery of both eyes Hx of appendectomy H/O gastric bypass Family History Father No problems noted. Mother CVA (cerebral vascular accident) Sister Hypertension Brother Hypertension Liver cancer Social History Household Members: None Housing: Apartment Are you a primary child daycare worker to a significant other at home: No Do you presently have visiting nurse or other home services: Yes Unable to assess alcohol history related to: Unable to respond Alcohol intake: never Patient Tobacco Use Status: Never used Tobacco service: No Current occupational status: disabled Review of Systems Musc Reports arthralgias, Reports limited range of motion and Reports stiffness Physical Exam Vital Signs: Last Vital Signs Pulse 83 05/19/23 10:37 BP 140/90 H 05/19/23 10:37 Pulse Ox 98 05/19/23 10:37 Oxygen Delivery Method Room Air 05/19/23 10:37 BMI result Body Mass Index 32.0 Const General: cooperative, healthy appearing and comfortable Nutritional Appearance: obese Orientation/consciousness: patient oriented x3 Limitations: no limitations HEENT Head: Yes normocephalic and Yes atraumatic Resp Effort & Inspection: normal respiratory effort and able to speak in complete sentences Auscultation: clear to auscultation bilaterally Neuro General: patient oriented x3 Extrem Other: Prominent RA deformities in both hands with some ulnar deviation at the MCPs Right 4th MCP swelling and tenderness Left 4th MCP tenderness Left ring finger triggering No PIP swelling or tenderness bilaterally today Triggering of left ring finger Significantly limited range of motion of right shoulder Positive empty can test and positive Speed's test Pain with right shoulder passive and active abduction No knee pain, swelling or warmth No ankle swelling or tenderness bilaterally No MTP tenderness and negative MTP squeeze test bilaterally Normal nailfold capillaroscopy Kyphotic Office Procedures Joint Injection/Drain Joint Injection/Drain Primary Site: right shoulder Prep: site was prepped using sterile technique and ethochloride spray was applied Injected: 40 mg of, Kenalog and other (2 mL of 1% lidocaine) Approach Used: posterolateral Procedure: The patient tolerated the procedure well Coding Details: With the patient's consent the right shoulder was prepped with ChloraPrep and alcohol. Under a topical ethyl chloride spray the left subacromial space was injected with 40 mg of triamcinolone and 2 cc of 1% lidocaine. The patient tolerated the procedure without any acute adverse effects. - Large joint Procedure code (CPT) selection complete Results Reviewed Results Reviewed: Labs 08/2022 SUSAN 1-12 80 fine speckled Labs 09/2022 RF 15.3 ( <13.0) SUSAN 1-640 fine speckled CCP negative Assessment & Plan Assessment & Plan (1) Seropositive rheumatoid arthritis: Comment: +RF -ve CCP dx 02/10 Enbrel 02/2023 affect Code(s): M05.9 - Rheumatoid arthritis with rheumatoid factor, unspecified Plan: This is a 73-year-old female with seropositive RA who returns for follow-up. On Enbrel 50 mg weekly. Doing much better overall. Today she has 1 swollen and 2 tender joints. With patient's consent, right shoulder was injected with Kenalog today. Patient has a blood sugar monitor and it is 164. Advised patient that she might need a higher dose of insulin over the coming 2-3 days Continue Enbrel 50 mg weekly Labs before next visit in 3 months (2) Screening for osteoporosis: Code(s): Z13.820 - Encounter for screening for osteoporosis Plan: Kyphotic on exam. ordered a DEXA scan to evaluate for osteoporosis, scheduled for May 2023 (3) Hepatitis C antibody positive in blood: Code(s): R76.8 - Other specified abnormal immunological findings in serum Plan: Positive hepatitis-C antibody with negative hep C RNA. Labs in 2021 showed negative hepatitis-C antibody. Unclear cause. Patient might have cleared hepatitis C infection or a lab error. 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 Patient fully aware. Advised patient to seek medical care JEFFREY if patient has an infection and advised patient to stop the medication until the infection is resolved. (5) Trigger finger, left ring finger: Code(s): M65.342 - Trigger finger, left ring finger Plan: Did not improve with injection. Referred patient to hand surgeon Plan I spent 46 minutes reviewing patient's chart, evaluating patient, ordering diagnostic workup, counseling patient and documenting in the chart Orders: Orders C Reactive Protein 3 Months M05.9 - Rheumatoid arthritis with rheumatoid factor, unspecified Erythrocyte Sedimentation Rate 3 Months M05.9 - Rheumatoid arthritis with rheumatoid factor, unspecified Complete Blood Count Auto Diff 3 Months M05.9 - Rheumatoid arthritis with rheumatoid factor, unspecified Comprehensive Met. Panel 3 Months M05.9 - Rheumatoid arthritis with rheumatoid factor, unspecified AMB Joint Injection/Aspiration Today M05.9 - Rheumatoid arthritis with rheumatoid factor, unspecified Referrals Hand Surgery Referral M65.342 - Trigger finger, left ring finger Medications: Refilled Enbrel SureClick (etanercept) 50 mg subcut QWEEK 4 mL 2RF NS Coding Level of Care Code Est Pt Level 5 (43711) Diagnoses Seropositive rheumatoid arthritis M05.9 Screening for osteoporosis Z13.820 Hepatitis C antibody positive in blood R76.8 High risk medication use Z79.899 Trigger finger, left ring finger M65.342 CPT Codes Coding - 30461 Large joint: 32479 - Large joint ([id number])
[2023-05-19 10:37] VITALS: BP 140/90; PULSE 83; O2SAT 98; BMI 32.0
== END 2023-05-19 11:07 | disposition home or self-care (01) ==
PROVIDERS: PCP Internal Medicine; Visit Provider Student in an Organized Health Care Education/Training Program
DX: M05.79 Rheumatoid arthritis with rheumatoid factor of multiple sites without organ or systems involvement (principal); R76.8 Other specified abnormal immunological findings in serum; Z79.899 Other long term (current) drug therapy; M65.342 Trigger finger, left ring finger; M25.511 Pain in right shoulder
CPT/HCPCS: 20610; 99215

== ENCOUNTER → 2023-05-19 10:30 | Outpatient (BNVA) | payer OTHER, SELFPAY | PROVIDERS: PCP Internal Medicine; Visit Provider Student in an Organized Health Care Education/Training Program | DX: M25.511 Pain in right shoulder (principal); M05.9 Rheumatoid arthritis with rheumatoid factor, unspecified; M65.342 Trigger finger, left ring finger; R76.8 Other specified abnormal immunological findings in serum; Z13.820 Encounter for screening for osteoporosis; Z79.899 Other long term (current) drug therapy | CPT/HCPCS: 20610; 99212 ==

== ENCOUNTER 2023-06-05 10:03 | Outpatient (REF) | payer OTHER, SELFPAY ==
--- NOTE | ~2023-06-05 | MM_ITS ---
EXAMINATION: BONE DENSITOMETRY CLINICAL INDICATION: Age-related osteoporosis without current pathological fracture. COMPARISON: Baseline BD dated 03/24/2015. TECHNIQUE: Using a [employer] DXA System (software version: 13.1) manufactured by [employer], dual-energy x-ray absorptiometry was performed of the lumbar spine and left hip. The images are of good technical quality. Summary results are attached. FINDINGS: LEFT FEMUR, NECK: Current: BMD 0.506 g/cm2, Z-score -2.1, T-score -3.8, osteoporosis. Baseline: BMD 0.625 g/cm2. LEFT FEMUR, TOTAL: Current: BMD 0.494 g/cm2, Z-score -2.6, T-score -4.1, osteoporosis, 27.2% decrease from baseline (<5% change is not significant). Baseline: BMD 0.679 g/cm2. AP SPINE L1-L4: Current: BMD 0.745 g/cm2, Z-score -2.1, T-score -3.6, osteoporosis, 13.7% decrease from baseline (<5% change is not significant). Baseline: BMD 0.863 g/cm2. IDENTIFIED RISK FACTORS: Early menopause, recurrent falls, rheumatoid arthritis, secondary osteoporosis (type 1 diabetes, hyperthyroidism, partial gastrectomy). HISTORY OF FRACTURE: None listed. MEDICATIONS: Calcium or multivitamin. Vitamin D. MM/XR DEXA axial skeleton IMPRESSION: 1. DIAGNOSIS: Osteoporosis based on the lowest T-score value of -4.1 in the total femur applying World Health Organization criteria. 2. 10-YEAR FRACTURE RISK PREDICTION, FRAX: According to the guidelines, FRAX calculation should only be performed on patients in the osteopenia bone density category. Therefore, FRAX was not performed on this patient. 3. Treatment Recommendations: NOF guidelines recommend consideration for treatment in postmenopausal women and men age 50 and older presenting with the following: -A hip or vertebral (clinical or morphometric) fracture. -T-score less than or equal to -2.5 at the femoral neck or spine after appropriate evaluation to exclude secondary causes. -Low bone mass at the hip or spine and a 10-year fracture probability by FRAX of greater than or equal to 3% for hip fracture or greater than or equal to 20% for major osteoporotic fracture based on the [place] adapted WHO algorithm. 4. Other Recommendations: All treatment decisions require clinical judgment and consideration of individual patient factors, including patient preferences, comorbidities, previous drug use, risk factors not captured in the FRAX model (e.g. frailty, falls, vitamin D deficiency, increased bone turnover, interval significant decline in bone density) and possible under or overestimation of fracture risk by FRAX. Additional medical evaluation for secondary cause of low bone mineral density may be appropriate. FUTURE SCAN RECOMMENDATION: People with diagnosed cases of osteoporosis or at high risk for fracture should have regular bone mineral density tests. For patients eligible for Medicare, routine testing is allowed once every 2 years. The testing frequency can be increased to one year for patients who have rapidly progressing disease, those who are receiving or discontinuing medical therapy to restore bone mass, or have additional risk factors.
--- NOTE | ~2023-06-05 | MM_ITS ---
EXAMINATION: MM SCREENING DIGITAL BREAST TOMOSYNTHESIS, BILATERAL CLINICAL INFORMATION: Screening. Asymptomatic. COMPARISON: Mammography: This study is compared with prior exams dating back to 2019. TECHNIQUE: Digital breast tomosynthesis is performed in both the craniocaudal and mediolateral oblique views along with computer-aided detection (CAD). Synthesized 2D images are generated from the tomosynthesis. FINDINGS: The breasts are heterogeneously dense, which may obscure small masses (ACR BI-RADS breast composition Category c). There are no significant masses, abnormal calcifications, or other abnormalities. There are unchanged, bilateral benign calcifications in each breast. MM/MM tomosynthesis screening BI IMPRESSION: No mammographic evidence of malignancy. ASSESSMENT: BI-RADS BI-RADS 1 - Negative RECOMMENDATION: Routine annual mammography screening. 1 year F/U This examination should not preclude the clinical evaluation of a suspicious palpable abnormality. This patient's information was entered into a reminder system with a target due date for their next mammogram.
== END 2023-06-05 10:04 | disposition home or self-care (01) ==
LOC: HO.MAMMO 10:03
PROVIDERS: PCP Internal Medicine; Visit Provider Student in an Organized Health Care Education/Training Program
DX: Z12.31 Encounter for screening mammogram for malignant neoplasm of breast (principal); Z13.820 Encounter for screening for osteoporosis; Z78.0 Asymptomatic menopausal state; M81.0 Age-related osteoporosis without current pathological fracture
CPT/HCPCS: 77063; 77067; 77080

== ENCOUNTER → 2023-06-05 10:15 | Outpatient (BNV) | payer OTHER, SELFPAY | PROVIDERS: PCP Internal Medicine; Visit Provider Radiology Diagnostic Radiology | DX: Z12.31 Encounter for screening mammogram for malignant neoplasm of breast (principal) | CPT/HCPCS: 77063; 77067 ==

== ENCOUNTER 2023-06-11 09:56 | Outpatient (AMB) | payer OTHER, SELFPAY ==
--- NOTE | 2023-06-11 10:40 | MHC.AMDMED ---
Intake Intake Visit Reasons: DM Allergies lorazepam [LORAZEPAM] Allergy (Severe, Verified 05/19/23 10:36) DELIRIUM celecoxib [From Celebrex] Allergy (Intermediate, Verified 05/19/23 10:36) ITCHING tramadol [TRAMADOL] Allergy (Intermediate, Verified 05/19/23 10:36) ITCHING zolpidem [Ambien] Allergy (Unknown, Verified 05/19/23 10:36) unknown HPI Comprehensive Diabetes Asmnt Most Recent Diabetes Results: Hemoglobin A1c 6.7 % 04/24/18 Microalb/Creat Ratio 16.8 ug/mg cr 07/17/21 Cholesterol 178 mg/dL 12/19/21 HDL Cholesterol 48 mg/dL 12/19/21 Triglycerides 159 mg/dL 12/19/21 Creatinine 1.15 mg/dL (0.5-1.4) 05/15/23 Blood Urea Nitrogen 18 mg/dL (9-16) H 05/15/23 Sodium 140 mmol/L (135-145) 05/15/23 Potassium 3.9 mmol/L (3.3-5.1) 05/15/23 Chloride 103 mmol/L (96-108) 05/15/23 Carbon Dioxide 27 mmol/L (22-29) 05/15/23 Calcium 9.4 mg/dL (8.4-10.2) 05/15/23 AST 28 U/L (5-31) 05/15/23 ALT 25 U/L (0-31) 05/15/23 Total Protein 6.5 g/dL (6.5-8.0) 05/15/23 Albumin 3.8 g/dL (3.5-5.0) 05/15/23 [facility] Medical History Hypothyroidism (04/21/1959) Hyperlipidemia (04/21/1959) Depressive disorder (04/21/1959) Recurrent falls (12/04/11) Nutritional anemia (04/21/1959) Iron deficiency anemia (04/21/1959) Fibromyositis (04/21/1959) Eczema (04/21/1959) High risk medication use Hepatitis C antibody positive in blood Screening for osteoporosis Screening for viral disease Joint swelling Overweight (BMI 25.0-29.9) Neck pain Swelling of knee joint, right Intra-abdominal abscess Diabetes Elevated liver function tests Intestinal malabsorption following gastrectomy Obesity (BMI 30-39.9) 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 Hypertension Cholecystitis Hyperlipidemia, unspecified Essential hypertension Atherosclerotic cardiovascular disease NSTEMI (non-ST elevated myocardial infarction) Fibromyalgia Folliculitis Anxiety Depression History of myocardial infarction Diabetes type 1, uncontrolled Hyperparathyroidism due to vitamin D deficiency Dyslipidemia Rona's disease Hypothyroidism Surgical History History of bypass gastroenterostomy (11/13/17) S/P laparoscopic cholecystectomy Status post gastric bypass for obesity History of esophagogastroduodenoscopy (EGD) H/O colonoscopy History of laparoscopic cholecystectomy History of bladder suspension procedure Status post laser cataract surgery of both eyes Hx of appendectomy H/O gastric bypass Family History Father No problems noted. Mother CVA (cerebral vascular accident) Sister Hypertension Brother Hypertension Liver cancer Social History Household Members: None Housing: Apartment Are you a primary care services manager to a significant other at home: No Do you presently have visiting nurse or other home services: Yes Unable to assess alcohol history related to: Unable to respond Alcohol intake: never Patient Tobacco Use Status: Never used Tobacco service: No Current occupational status: disabled Assessment & Plan Assessment & Plan (1) Diabetes type 1, uncontrolled: Code(s): E10.65 - Type 1 diabetes mellitus with hyperglycemia Qualifiers: Glycemic state: with hypoglycemia Coma presence: without coma Qualified Code(s): E10.649 - Type 1 diabetes mellitus with hypoglycemia without coma Plan: Personal Continuous Glucose Monitor: Patients CGM information reviewed Reviewed patient's sensor data: Hypoglycemia: ? 2% Hyperglycemia:? 87% Time in Range:? 11% Average glucose for the last 2 weeks? 267 mg/dL Patient denies missing pre meal insulin doses, however glucose levels remain well above target. Patient appears confused by separate doses for meals and sliding scale for correction. Added mealtime dose to sliding scale gave patient a printed copy. Patient reports that she is going to be scheduled for surgery on her trigger finger in June or July of 2023. Explained to patient that surgery may be postponed if glucose levels remain high. Patient has not seen Dr. Sprague since August 2022, she is at risk of not being able to get her CGM supplies since she has spent not been seen in over 6 months. Sent message to front office java developer to add patient to cancellation list for Dr. Sprague Patient has also had several episodes of hypoglycemia, reviewed with patient how to treat hypoglycemia with rule of 15s. Patient's last A1c was done in December 2022 is 8.2%, patient is overdue for next A1c message sent to provider to enter order Recommended to patient to increase Tresiba from 22 units to 26 units, printed out copy combined Fiasp mealtime and correction scale Reviewed how to interpret trend arrows Reminded patient that to check finger sticks if symptoms do not match sensor reading. Discussed lag time between finger stick and sensor data.? Patient able to insert sensor independently at home without issue.? Patient will follow-up with perioperative educator in 1 month, if it appears patient is unable to manage insulin injections patient may assistance from [facility] for medication management Patient Instructions: Medicamentos para la diabetes: Tresiba 26 unidades Escala de correcci?n Fiasp: 150-200 mg por dL 12 unidades 201-250 mg por dL 13 unidades 251-300 mg/dL 14 unidades 301-350 mg/dL 15 unidades 351-400 mg por dL 16 unidades M?s de 400 mg por dL 17 unidades. Coding Level of Care Code Est Pt Level 1 (34216) Diagnoses Uncontrolled type 1 diabetes mellitus with hypoglycemia without coma E10.649 Glycemic state: with hypoglycemia Coma presence: without coma
== END 2023-06-11 14:12 | disposition home or self-care (01) ==
PROVIDERS: PCP Internal Medicine; Visit Provider Registered Nurse Diabetes Educator
DX: E10.649 Type 1 diabetes mellitus with hypoglycemia without coma (principal)

== ENCOUNTER → 2023-06-11 09:56 | Outpatient (BNVA) | payer OTHER, SELFPAY | PROVIDERS: PCP Internal Medicine; Visit Provider Registered Nurse Diabetes Educator | DX: E10.649 Type 1 diabetes mellitus with hypoglycemia without coma (principal); Z79.4 Long term (current) use of insulin | CPT/HCPCS: 99211 ==

== ENCOUNTER 2023-06-17 09:52 | Outpatient (AMB) | payer OTHER, SELFPAY ==
[2023-06-17 09:53] VITALS: BP 110/64; PULSE 64; BMI 32.4
--- NOTE | 2023-06-17 09:53 | A.OFFVIS_ITS ---
Intake Vital Signs 06/17/23 09:53 Height 4 ft 11 in Weight 160 lb 4.417 oz BMI 32.4 BP 110/64 Blood Pressure Location Lt brachial Position Sitting Pulse 64 Pulse Source Pulse Oximeter Intake Visit Reasons: f/u Type 1 DM Intake Note: Patient presents today to follow up on D1MT. Last Diabetic Eye exam: Patient is unsure of last exam. Last Podiatry Visit: Doesn't have one. Random Glucose: 111 mg/dl HgA1c: 8.6% Ferris Wheel Attendant Required: Yes Ferris Wheel Attendant Language: Portable Pinch Riveter Name: Sara medical staff Information Interpreted: non-clinical & clinical Accompanied by: Other Relationship Allergies lorazepam [LORAZEPAM] Allergy (Severe, Verified 06/17/23 10:01) DELIRIUM celecoxib [From Celebrex] Allergy (Intermediate, Verified 06/17/23 10:01) ITCHING tramadol [TRAMADOL] Allergy (Intermediate, Verified 06/17/23 10:01) ITCHING zolpidem [Ambien] Allergy (Unknown, Verified 06/17/23 10:01) unknown HPI HPI Comments History of Present Illness Details Patient is a 73-year-old female with DM type 1 diagnosed at 40 years of age, initially thought to have type 2 diabetes, who presents for management of diabetes. .he does report a history of hypoglycemic coma in the past. She reports using her insulin prior to meals without fail. Her Dexcom sensor showed average blood glucose of 254 in only 17% within target range. She is using the sensor 71% of the time. 31% were high and 51 % very high with 0% low. Point cares remained elevated throughout the day without any spikes post meal She has been on Tirosint 100 mcg daily. She reports she does forget on occassion and will take 2 pills the next day. 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 Scalp folliculitis, fibromyalgia, microcytic anemia pernicious depression. Bariatric surgery 12/09/2016. 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 Needs to make appt Other specialists: rn diabetes, neurologist, Dr. Tang Laboratory Tests 05/03/20 06/12/20 10/30/20 11:35 12:40 11:08 Creatinine Estimated GFR Hgb A1c (Clinic) LDL Cholesterol Di rect LDL Cholesterol, C alc 37 25-OH Vitamin D To helga 40.4 TSH TRISTAN Antibody >250 H 10/30/20 03/12/21 04/05/21 11:08 10:36 09:58 Creatinine 1.15 Estimated GFR 47 Hgb A1c (Clinic) LDL Cholesterol Di rect 32 LDL Cholesterol, C alc 25-OH Vitamin D To helga TSH 7.92 H TRISTAN Antibody 06/22/21 10:45 Creatinine Estimated GFR Hgb A1c (Clinic) 9.6 H LDL Cholesterol Di rect LDL Cholesterol, C alc 25-OH Vitamin D To helga TSH TRISTAN Antibody [facility] Medical History Hypothyroidism (04/21/1959) Hyperlipidemia (04/21/1959) Depressive disorder (04/21/1959) Recurrent falls (12/04/11) Nutritional anemia (04/21/1959) Iron deficiency anemia (04/21/1959) Fibromyositis (04/21/1959) Eczema (04/21/1959) High risk medication use Hepatitis C antibody positive in blood Screening for osteoporosis Screening for viral disease Joint swelling Overweight (BMI 25.0-29.9) Neck pain Swelling of knee joint, right Intra-abdominal abscess Diabetes Elevated liver function tests Intestinal malabsorption following gastrectomy Obesity (BMI 30-39.9) 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 Hypertension Cholecystitis Hyperlipidemia, unspecified Essential hypertension Atherosclerotic cardiovascular disease NSTEMI (non-ST elevated myocardial infarction) Fibromyalgia Folliculitis Anxiety Depression History of myocardial infarction Diabetes type 1, uncontrolled Hyperparathyroidism due to vitamin D deficiency Dyslipidemia Rona's disease Hypothyroidism Surgical History History of bypass gastroenterostomy (11/13/17) S/P laparoscopic cholecystectomy Status post gastric bypass for obesity History of esophagogastroduodenoscopy (EGD) H/O colonoscopy History of laparoscopic cholecystectomy History of bladder suspension procedure Status post laser cataract surgery of both eyes Hx of appendectomy H/O gastric bypass Family History Father No problems noted. Mother CVA (cerebral vascular accident) Sister Hypertension Brother Hypertension Liver cancer Social History Household Members: None Housing: Apartment Are you a primary ambulatory care coordinator to a significant other at home: No Do you presently have visiting nurse or other home services: Yes Unable to assess alcohol history related to: Unable to respond Alcohol intake: never Patient Tobacco Use Status: Never used Tobacco service: No Current occupational status: disabled Physical Exam Vital Signs: Last Vital Signs Pulse 64 06/17/23 09:53 BP 110/64 06/17/23 09:53 BMI result Body Mass Index 32.4 Absence of Cushingoid features. Absence of acromegalic features. Neck exam reveals nl size thyroid about 15 gms. No thyroid nodules palpable. No carotid bruits present. Lungs CTA. Heart S1 S2, Reg R/R. No M/R/ G. Skin exam reveals absence of vitiligo or acanthosis nigricans. Abdominal exam reveals Soft NT/ND with NA BS. No organomegaly present. Extrem Other: Visual exam of foot performed. No ulcerations or open lesions. No onchomycosis, no callouses.Pulses 2 + distally. Sensation intact to monofilament exam. Vibratory sensation sensed is decreased with the tuning fork Results AMB Hemoglobin A1c AMB Hemoglobin A1c 8.6 % Last Edit by RADHA Menendez on 06/17/23 10:23 Results Reviewed Results Reviewed: Laboratory Last Values Glucose (Clinic) 111 mg/dL (60-115) 06/17/23 10:07 Assessment & Plan Assessment & Plan (1) Diabetes type 1, uncontrolled: Code(s): E10.65 - Type 1 diabetes mellitus with hyperglycemia Qualifiers: Glycemic state: with hypoglycemia Coma presence: without coma Qualified Code(s): E10.649 - Type 1 diabetes mellitus with hypoglycemia without coma Plan: This is a 73-year-old female with history of type 1 diabetes being treated with basal-bolus insulin with poor glycemic control by HbA1c and known macrovascular complications namely CAD. There is significant hyperglycemia throughout the day with post-prandial spikes. Her glycemic control is limited by psychosocial limitations Plan is to follow the regimen prescribed by the special education paraeducator few days ago. . Will have the patient follow-up with the special education paraeducator. . Ideally, patient should learn how to carbohydrate count but this might be a bit challenging to this patient. . I do not think the patient would be capable of manipulation of a insulin pump although this would be ideal. Perhaps, she may be a candidate for a iLet pump and she can discuss it with the educator on follow-up. Will also check lipid profile and micro/creatinine (2) Hypothyroidism: Onset Date: 04/21/1959 Code(s): E03.9 - Hypothyroidism, unspecified Plan: On Tirosint 100 ug. Appears clinically euthyroid. Will check TSH and free T4 and adjust Tirosint accordingly Orders: Orders Lipid Panel Today E03.9 - Hypothyroidism, unspecified, E10.65 - Type 1 diabetes mellitus with hyperglycemia Microalbumin, Random (w Creat) Today E03.9 - Hypothyroidism, unspecified, E10.65 - Type 1 diabetes mellitus with hyperglycemia Thyroid Stimulating Hormone Today E03.9 - Hypothyroidism, unspecified, E10.65 - Type 1 diabetes mellitus with hyperglycemia Free T4 (Free Thyroxine) Today E03.9 - Hypothyroidism, unspecified, E10.65 - Type 1 diabetes mellitus with hyperglycemia AMB Hemoglobin A1c Today E10.65 - Type 1 diabetes mellitus with hyperglycemia, Z13.9 - Encounter for screening, unspecified Coding Level of Care Code Est Pt Level 4 (82088) Diagnoses Uncontrolled type 1 diabetes mellitus with hypoglycemia without coma E10.649 Glycemic state: with hypoglycemia Coma presence: without coma Hypothyroidism E03.9
[2023-06-17 10:12] LABS: Glucose, Whole Blood 111 mg/dL (60-115)
== END 2023-06-17 10:29 | disposition home or self-care (01) ==
PROVIDERS: PCP Internal Medicine; Visit Provider Internal Medicine Endocrinology, Diabetes & Metabolism
DX: E10.649 Type 1 diabetes mellitus with hypoglycemia without coma (principal); E10.65 Type 1 diabetes mellitus with hyperglycemia; Z79.85 Long-term (current) use of injectable non-insulin antidiabetic drugs; E06.3 Autoimmune thyroiditis
CPT/HCPCS: 99214

== ENCOUNTER → 2023-06-17 09:52 | Outpatient (BNVA) | payer OTHER, SELFPAY | PROVIDERS: PCP Internal Medicine; Visit Provider Internal Medicine Endocrinology, Diabetes & Metabolism | DX: E10.649 Type 1 diabetes mellitus with hypoglycemia without coma (principal); E03.9 Hypothyroidism, unspecified | CPT/HCPCS: 82947; 83036; 99212 ==

== ENCOUNTER 2023-07-02 09:55 | Outpatient (REF) | payer OTHER, SELFPAY ==
[2023-07-02 12:45] LABS: Cholesterol 125 mg/dL (<200); Free T4 (Free Thyroxine) 0.87 ng/dL (0.71-1.85); HDL Cholesterol 46 mg/dL (>40); LDL Cholesterol Calculated 62 mg/dL (<100); Thyroid Stimulating Hormone 4.21 uIU/mL (0.32-4.0); Triglycerides 89 mg/dL (<150)
[2023-07-02 12:52] LABS: Creatinine Urine 163.81 mg/dL
[2023-07-02 14:54] LABS: Estimated Average Glucose 192 mg/dL; Hemoglobin A1c % 8.3 % (<6.0)
== END 2023-07-02 09:56 | disposition home or self-care (01) ==
LOC: HO.LAB 09:55
PROVIDERS: PCP Internal Medicine; Visit Provider Internal Medicine Endocrinology, Diabetes & Metabolism
DX: E03.9 Hypothyroidism, unspecified (principal); E10.649 Type 1 diabetes mellitus with hypoglycemia without coma; E10.65 Type 1 diabetes mellitus with hyperglycemia
CPT/HCPCS: 36415; 80061; 82043; 82570; 83036; 84439; 84443

== ENCOUNTER 2023-07-03 12:53 | Outpatient (AMB) | payer OTHER, SELFPAY ==
--- NOTE | 2023-07-03 13:35 | A.OFFVIS_ITS ---
Intake Intake Visit Reasons: DM Machine Precision Engraver Required: Yes Machine Precision Engraver Language: Microbiological Lab Technician Name: Gabriela [facility] [place] Accompanied by: Other Relationship Allergies lorazepam [LORAZEPAM] Allergy (Severe, Verified 06/17/23 10:01) DELIRIUM celecoxib [From Celebrex] Allergy (Intermediate, Verified 06/17/23 10:01) ITCHING tramadol [TRAMADOL] Allergy (Intermediate, Verified 06/17/23 10:01) ITCHING zolpidem [Ambien] Allergy (Unknown, Verified 06/17/23 10:01) unknown HPI Comprehensive Diabetes Asmnt Most Recent Diabetes Results: Microalb/Creat Ratio 36.0 ug/mg cr (<30) H 07/02/23 Cholesterol 125 mg/dL (<200) 07/02/23 HDL Cholesterol 46 mg/dL (>40) 07/02/23 Triglycerides 89 mg/dL (<150) 07/02/23 Creatinine 1.15 mg/dL (0.5-1.4) 05/15/23 Blood Urea Nitrogen 18 mg/dL (9-16) H 05/15/23 Sodium 140 mmol/L (135-145) 05/15/23 Potassium 3.9 mmol/L (3.3-5.1) 05/15/23 Chloride 103 mmol/L (96-108) 05/15/23 Carbon Dioxide 27 mmol/L (22-29) 05/15/23 Calcium 9.4 mg/dL (8.4-10.2) 05/15/23 AST 28 U/L (5-31) 05/15/23 ALT 25 U/L (0-31) 05/15/23 Total Protein 6.5 g/dL (6.5-8.0) 05/15/23 Albumin 3.8 g/dL (3.5-5.0) 05/15/23 [facility] Medical History Hypothyroidism (04/21/1959) Hyperlipidemia (04/21/1959) Depressive disorder (04/21/1959) Recurrent falls (12/04/11) Nutritional anemia (04/21/1959) Iron deficiency anemia (04/21/1959) Fibromyositis (04/21/1959) Eczema (04/21/1959) High risk medication use Hepatitis C antibody positive in blood Screening for osteoporosis Screening for viral disease Joint swelling Overweight (BMI 25.0-29.9) Neck pain Swelling of knee joint, right Intra-abdominal abscess Diabetes Elevated liver function tests Intestinal malabsorption following gastrectomy Obesity (BMI 30-39.9) 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 Hypertension Cholecystitis Hyperlipidemia, unspecified Essential hypertension Atherosclerotic cardiovascular disease NSTEMI (non-ST elevated myocardial infarction) Fibromyalgia Folliculitis Anxiety Depression History of myocardial infarction Diabetes type 1, uncontrolled Hyperparathyroidism due to vitamin D deficiency Dyslipidemia Rona's disease Hypothyroidism Surgical History History of bypass gastroenterostomy (11/13/17) S/P laparoscopic cholecystectomy Status post gastric bypass for obesity History of esophagogastroduodenoscopy (EGD) H/O colonoscopy History of laparoscopic cholecystectomy History of bladder suspension procedure Status post laser cataract surgery of both eyes Hx of appendectomy H/O gastric bypass Family History Father No problems noted. Mother CVA (cerebral vascular accident) Sister Hypertension Brother Hypertension Liver cancer Social History Household Members: None Housing: Apartment Are you a primary skin care instructor to a significant other at home: No Do you presently have visiting nurse or other home services: Yes Unable to assess alcohol history related to: Unable to respond Alcohol intake: never Patient Tobacco Use Status: Never used Tobacco service: No Current occupational status: disabled Assessment & Plan Assessment & Plan (1) Diabetes type 1, uncontrolled: Code(s): E10.65 - Type 1 diabetes mellitus with hyperglycemia Qualifiers: Glycemic state: with hypoglycemia Coma presence: without coma Qualified Code(s): E10.649 - Type 1 diabetes mellitus with hypoglycemia without coma Plan: Personal Continuous Glucose Monitor: Patients CGM information reviewed Reviewed patient's sensor data: Hypoglycemia: ? 1% Hyperglycemia:?68% Time in Range:? 31% Average glucose for the last 2 weeks 228 mg/dL At last visit with Dr. Sprauge he discussed with patient using insulin pump therapy for better glucose control. After speaking with patient and her REGISTERED DIETITIAN, patient does not feel comfortable, and does not have the support that she would need to be successful with insulin pump therapy. Discussed with patient using the V-Go insulin delivery device as an alternative to insulin pump therapy, patient agreed that she would like to try the V-Go E-mail sent to the V-Go rep to find out how to start process in obtaining the V- Go device Reviewed how to interpret trend arrows Reminded patient that to check finger sticks if symptoms do not match sensor reading. Patient Instructions: Will call patient to set up next appointment for V-Go training Coding Level of Care Code Est Pt Level 1 (06459) Diagnoses Uncontrolled type 1 diabetes mellitus with hypoglycemia without coma E10.649 Glycemic state: with hypoglycemia Coma presence: without coma
== END 2023-07-03 13:37 | disposition home or self-care (01) ==
PROVIDERS: PCP Internal Medicine; Visit Provider Registered Nurse Diabetes Educator
DX: E10.649 Type 1 diabetes mellitus with hypoglycemia without coma (principal)

== ENCOUNTER → 2023-07-03 12:53 | Outpatient (BNVA) | payer OTHER, SELFPAY | PROVIDERS: PCP Internal Medicine; Visit Provider Registered Nurse Diabetes Educator | DX: E10.65 Type 1 diabetes mellitus with hyperglycemia (principal); E10.649 Type 1 diabetes mellitus with hypoglycemia without coma | CPT/HCPCS: 99211 ==

== ENCOUNTER 2023-07-24 11:51 | Outpatient (REF) | payer OTHER, SELFPAY ==
--- NOTE | ~2023-07-24 | XR_ITS ---
EXAMINATION: XR HIP, RIGHT CLINICAL INFORMATION: Pain COMPARISON: Previous x-ray June 2014. TECHNIQUE: Two views of the right hip. FINDINGS: No fracture or dislocation. Mild joint space narrowing at the right hip joint. No osteophyte formation. Bones of the visualized pelvis are normal. There is soft tissue arterial calcification. XR/XR hip RT min 2V IMPRESSION: Mild joint space narrowing at the right hip. Atherosclerotic disease.
== END 2023-07-24 11:52 | disposition home or self-care (01) ==
LOC: HO.HHCX 11:51
PROVIDERS: Visit Provider Internal Medicine
DX: M25.551 Pain in right hip (principal); R29.6 Repeated falls
CPT/HCPCS: 73502

== ENCOUNTER 2023-07-30 09:46 | Outpatient (REF) | payer OTHER, SELFPAY ==
--- NOTE | ~2023-07-30 | XR_ITS ---
EXAMINATION: XR HAND, BILATERAL CLINICAL INFORMATION: Pain in bilateral hands. COMPARISON: 01/10/2023 TECHNIQUE: 3 views of each hand. FINDINGS: Left Hand: The bones are diffusely demineralized. Moderate degenerative changes in the first carpometacarpal joint with joint space narrowing and hypertrophic change. Chondrocalcinosis at the ulnocarpal articulation. Moderate joint space narrowing with degenerative changes in the first metacarpophalangeal joint. Radiopaque marker placed by technologist to indicate area of concern as indicated by the patient adjacent to the left fourth digit. Mild narrowing with degenerative changes in scattered IP joints. No displaced fracture of the left fourth digit appreciated. Right Hand: The bones are diffusely demineralized. Moderate degenerative changes in the first carpometacarpal joint with joint space narrowing and hypertrophic change. Chondrocalcinosis at the ulnocarpal articulation. Moderate joint space narrowing with degenerative changes in the first metacarpophalangeal joint. Mild narrowing with degenerative changes in scattered IP joints. Radiopaque marker placed by technologist to indicate area of concern as indicated by the patient at the distal aspect of the right third digit and demonstrated no displaced fracture in this region. XR/XR hand RT min 3V IMPRESSION: 1. Degenerative changes in bilateral hand redemonstrated as detailed above. 2. Bones are diffusely demineralized. No displaced fracture appreciated. Recommend follow-up imaging in 10-14 days if fracture is suspected.
--- NOTE | ~2023-07-30 | XR_ITS ---
EXAMINATION: XR HAND, BILATERAL CLINICAL INFORMATION: Pain in bilateral hands. COMPARISON: 01/10/2023 TECHNIQUE: 3 views of each hand. FINDINGS: Left Hand: The bones are diffusely demineralized. Moderate degenerative changes in the first carpometacarpal joint with joint space narrowing and hypertrophic change. Chondrocalcinosis at the ulnocarpal articulation. Moderate joint space narrowing with degenerative changes in the first metacarpophalangeal joint. Radiopaque marker placed by technologist to indicate area of concern as indicated by the patient adjacent to the left fourth digit. Mild narrowing with degenerative changes in scattered IP joints. No displaced fracture of the left fourth digit appreciated. Right Hand: The bones are diffusely demineralized. Moderate degenerative changes in the first carpometacarpal joint with joint space narrowing and hypertrophic change. Chondrocalcinosis at the ulnocarpal articulation. Moderate joint space narrowing with degenerative changes in the first metacarpophalangeal joint. Mild narrowing with degenerative changes in scattered IP joints. Radiopaque marker placed by technologist to indicate area of concern as indicated by the patient at the distal aspect of the right third digit and demonstrated no displaced fracture in this region. XR/XR hand LT min 3V IMPRESSION: 1. Degenerative changes in bilateral hand redemonstrated as detailed above. 2. Bones are diffusely demineralized. No displaced fracture appreciated. Recommend follow-up imaging in 10-14 days if fracture is suspected.
== END 2023-07-30 09:47 | disposition home or self-care (01) ==
LOC: HO.HOSX 09:46
PROVIDERS: PCP Internal Medicine; Visit Provider Physician Assistant
DX: M79.642 Pain in left hand (principal); M79.641 Pain in right hand
CPT/HCPCS: 73130; 99202

== ENCOUNTER 2023-07-30 09:46 | Outpatient (AMB) | payer OTHER, SELFPAY ==
[2023-07-30 09:49] VITALS: BMI 32.3
--- NOTE | 2023-07-30 09:49 | A.OFFVIS_ITS ---
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 Patient reports locking and catching in her finger for about 7-8 months. States numbness and tingling in her finger. She reports having an injection about 4 months with no relief. Allergies lorazepam [LORAZEPAM] Allergy (Severe, Verified 07/30/23 09:52) DELIRIUM celecoxib [From Celebrex] Allergy (Intermediate, Verified 07/30/23 09:52) ITCHING tramadol [TRAMADOL] Allergy (Intermediate, Verified 07/30/23 09:52) ITCHING zolpidem [Ambien] Allergy (Unknown, Verified 07/30/23 09:52) unknown HPI plc engineer- Trigger finger, left ring finger HPI Details 73-year-old right hand dominant female trey evangelista presents to the office today with an fire boat engineer for evaluation of left ring finger. She denies injury. She states she has had pain, locking, and catching in her finger for about 8 months. She also c/o numbness and tingling in her finger. She had an injection about 4 months ago which did not provide her any relief. She does see a inspector exhaust emissions for her rheumatoid arthritis. She has a history of diabetes. Her most recent A1c was 8.3%. Her fasting blood glucose is around 230s to 250s. She is currently being followed by an aviation survival technician. [facility] Medical History Hypothyroidism (04/21/1959) Hyperlipidemia (04/21/1959) Depressive disorder (04/21/1959) Recurrent falls (12/04/11) Nutritional anemia (04/21/1959) Iron deficiency anemia (04/21/1959) Fibromyositis (04/21/1959) Eczema (04/21/1959) High risk medication use Hepatitis C antibody positive in blood Screening for osteoporosis Screening for viral disease Joint swelling Overweight (BMI 25.0-29.9) Neck pain Swelling of knee joint, right Intra-abdominal abscess Diabetes Elevated liver function tests Intestinal malabsorption following gastrectomy Obesity (BMI 30-39.9) 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 Hypertension Cholecystitis Hyperlipidemia, unspecified Essential hypertension Atherosclerotic cardiovascular disease NSTEMI (non-ST elevated myocardial infarction) Fibromyalgia Folliculitis Anxiety Depression History of myocardial infarction Diabetes type 1, uncontrolled Hyperparathyroidism due to vitamin D deficiency Dyslipidemia Rona's disease Hypothyroidism Surgical History History of bypass gastroenterostomy (11/13/17) S/P laparoscopic cholecystectomy Status post gastric bypass for obesity History of esophagogastroduodenoscopy (EGD) H/O colonoscopy History of laparoscopic cholecystectomy History of bladder suspension procedure Status post laser cataract surgery of both eyes Hx of appendectomy H/O gastric bypass Family History Father No problems noted. Mother CVA (cerebral vascular accident) Sister Hypertension Brother Hypertension Liver cancer Social History (Updated 07/30/23 @ 09:55 by RADHA Miles) Household Members: None Housing: Apartment Are you a primary care process manager to a significant other at home: No Do you presently have visiting nurse or other home services: Yes Unable to assess alcohol history related to: Unable to respond Alcohol intake: never Patient Tobacco Use Status: Never used Tobacco service: No Current occupational status: disabled Current occupation: right hand dominant Review of Systems Const All systems reviewed & are unremarkable except as noted in HPI and below Physical Exam Vital Signs: BMI result Body Mass Index 32.3 Const General: cooperative, healthy appearing, comfortable, no acute distress, well developed and alert Orientation/consciousness: patient oriented x3 HEENT Head: Yes normal to inspection, Yes normocephalic and Yes atraumatic Eyes General: appearance normal, both eyes and all related structures Resp Effort & Inspection: normal respiratory effort and able to speak in complete sentences Cardio Rate: regular rate Peripheral pulses: Peripheral pulses 2+ throughout GI Palpation (GI): Soft to palpation Skin Lesions: no lesions Rashes: no rashes Neuro General: patient oriented x3 Extrem Other: Left ring finger: No open wound or abrasions. She does have an ulnar deviation at level of MCP joints. She can make a full fist however upon doing so she has subluxation of extensor tendon over the MCP joint laterally in the ring finger. No catching or locking of the flexor tendon. NVI. Results Reviewed Results Reviewed: X-rays of bilateral hands obtained in the office today are negative for any acute or chronic abnormalities no erosive changes of the interphalangeal joints or metacarpal joints. 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 Aggarwal was available to see the patient with me today. Based off her physical exam finding, this is consistent with radial sagittal band rupture. The patient does currently have uncontrolled diabetes with the most recent A1c being 8.3. We would need to get her diabetes under control so we can move forward with radial sagittal band reconstruction. Dr. Aggarwal did briefly explain the procedure. She does have a follow-up appointment with her aviation survival technician for her diabetes in September which would be a good time to reevaluate to see if she is in a better position for surgical intervention. She does express understanding and will see me back after her endocrinology appointment to discuss this further. Orders: Orders XR hand LT min 3V Today M79.642 - Pain in left hand XR hand RT min 3V Today M79.641 - Pain in right hand Patient Instructions: Scribed for Elise Byrd PA-C, by Rudolph Watkins director of graduate medical education, on 07/30/2023 at 10:00 AM EST. IElise PA-C, have personally reviewed and agree with the information entered by the scribe. Coding Level of Care Code New Pt Level 3 (37812) Diagnoses 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, initial encounter S63.659A Encounter type: initial encounter
== END 2023-07-30 11:29 | disposition home or self-care (01) ==
PROVIDERS: PCP Internal Medicine; Visit Provider Physician Assistant
DX: S63.655A Sprain of metacarpophalangeal joint of left ring finger, initial encounter (principal)
CPT/HCPCS: 99203

== ENCOUNTER 2023-08-13 10:11 | Outpatient (REF) | payer OTHER, SELFPAY ==
[2023-08-13 10:27] LABS: MANUAL DIFF FLAG NO
[2023-08-13 10:47] LABS: Basophils Absolute Auto 0.1 X10*3/uL (0.0-0.2); Basophils Percent Auto 1.1 % (0-2); Eosinophils Percent Auto 9.1 % (0-4); Hemoglobin 11.3 g/dl (12.0-16.0); Imm Gran Abs Auto 0.05 X10*3/uL (0.00-0.03); Imm Gran Pct Auto 0.5 % (0.0-0.4); Lymphocytes Absolute Auto 3.1 X10*3/uL (1.2-4.9); Lymphocytes Percent Auto 29.2 % (20-40); Mean Corpuscular HGB Conc 31.4 g/dl (31.0-35.0); Mean Corpuscular Volume 89.1 fL (80.0-98.0); Mean Platelet Volume 10.5 fL (9.4-12.3); Monocytes Absolute Auto 0.9 X10*3/uL (0.1-1.2); Monocytes Percent Auto 8.1 % (2-11); Neutrophils Absolute Auto 5.6 x10*3/uL (2.0-8.3); Platelet Count 201 X10*3/uL (160-400); Red Blood Count 4.04 X10*6/uL (4.20-5.50); Red Cell Distribution Width 13.8 % (11.0-16.0); White Blood Count 10.7 X10*3/uL (4.8-10.8)
[2023-08-13 11:19] LABS: Alanine Aminotransferase 23 U/L (0-31); Albumin Level 3.9 g/dL (3.5-5.0); Alkaline Phosphatase 117 U/L (39-117); Anion Gap 12 (12-20); Aspartate Amino Transferase 16 U/L (5-31); Bilirubin Total 0.3 mg/dL (0.0-1.0); Blood Urea Nitrogen 21 mg/dL (9-16); C Reactive Protein 0.56 mg/dL (< or = 0.50); Calcium 9.4 mg/dL (8.4-10.2); Carbon Dioxide 24 mmol/L (22-29); Chloride 106 mmol/L (96-108); Estimated Glomerular Filt Rate 50; Glucose Random 165 mg/dL (60-115); Potassium 4.2 mmol/L (3.3-5.1); Sodium 138 mmol/L (135-145); Total Protein 6.8 g/dL (6.5-8.0)
[2023-08-13 11:30] LABS: Erythrocyte Sedimentation Rate 11 MM/HR (0-20)
[2023-08-13 11:42] LABS: Thyroid Stimulating Hormone 0.72 uIU/mL (0.32-4.0)
[2023-08-13 11:47] LABS: Free T4 (Free Thyroxine) 1.05 ng/dL (0.71-1.85)
== END 2023-08-13 10:12 | disposition home or self-care (01) ==
LOC: HO.LAB 10:11
PROVIDERS: Absent Provider Internal Medicine Endocrinology, Diabetes & Metabolism; PCP Internal Medicine; Visit Provider Student in an Organized Health Care Education/Training Program
DX: E03.8 Other specified hypothyroidism (principal); E06.3 Autoimmune thyroiditis; M05.9 Rheumatoid arthritis with rheumatoid factor, unspecified
CPT/HCPCS: 36415; 80053; 84439; 84443; 85025; 85652; 86140

== ENCOUNTER 2023-08-19 09:52 | Outpatient (AMB) | payer OTHER, SELFPAY ==
--- NOTE | 2023-08-19 09:56 | MHC.OFFVIS ---
Vital Signs 08/19/23 09:57 Height 4 ft 11 in Weight 169 lb 1.513 oz BMI 34.1 BP 140/64 H Blood Pressure Location Rt brachial Position Sitting Pulse 92 Pulse Source Pulse Oximeter Pulse Oximetry (%) 96 Oxygen Delivery Method Room Air Intake Visit Reasons: RA Intake Note: Patient last seen 05/19/23 presents today for follow up and test results. Reports recent fall saw PCP xrays done and revealed arthritis Saw hand surgeon, surgery not recommended at this time. Pt has to get blood sugar and BP more stable International Nurse Required: Yes International Nurse Name: Gio Castillo409 Accompanied by: Self / Same As Patient Allergies lorazepam [LORAZEPAM] Allergy (Severe, Verified 08/19/23 10:00) DELIRIUM celecoxib [From Celebrex] Allergy (Intermediate, Verified 08/19/23 10:00) ITCHING tramadol [TRAMADOL] Allergy (Intermediate, Verified 08/19/23 10:00) ITCHING zolpidem [Ambien] Allergy (Unknown, Verified 08/19/23 10:00) unknown Medication List - Last Reconciled 08/19/23 by Briseida Rocha MD albuterol sulfate 90 mcg/actuation 2 puffs inhalation Q4-6H PRN albuterol sulfate 2.5 mg (3 mL) inhalation Q3H PRN amlodipine 10 mg PO DAILY aripiprazole 20 mg PO DAILY BD Cherelle 2nd Gen Pen Needle (pen needle, diabetic) 5 times a day NS bisacodyl 10 mg (2 x 5 mg) PO BEDTIME blood sugar diagnostic (FreeStyle Lite Strips) TEST BLOOD SUGAR 8 TIMES EVERY DAY blood-glucose meter (FreeStyle Lite Meter kit) As directed blood-glucose meter,continuous (Dexcom G6 Press Tender Long Goods) As directed calcium citrate 400 mg (2 x 200 mg (950 mg)) PO BID cholecalciferol (vitamin D3) (Vitamin D3) 50 mcg PO QAM clonazepam 1 tab PO Q8H PRN clopidogrel 75 mg PO QAM Enbrel SureClick (etanercept) 50 mg subcut QWEEK NS esomeprazole magnesium 40 mg PO DAILY folic acid 1 mg PO DAILY glucagon 3 mg/actuation (Baqsimi) 3 mg intranasal ONCE 30 days guaifenesin ER (Mucinex) 600 mg PO BID hydroxyzine HCl 10 mg PO Q8H PRN insulin aspart (niacinamide) 100 unit/mL (3 mL) (Fiasp FlexTouch U-100 Insulin) infuse up to 56 units via VGO daily subcutaneously 4 times a day; insulin degludec (Tresiba FlexTouch U-100 insulin) 30 units (0.3 mL) subcut DAILY insulin syringe-needle U-100 (BD Insulin Syringe Ultra-Fine) As directed 3 times per day ipratropium-albuterol 0.5 mg-3 mg(2.5 mg base)/3 mL 3 mL inhalation RQ4H WHILE AWAKE 7 days levothyroxine 112 mcg PO DAILY linaclotide (Linzess) 290 mcg PO QAM losartan 100 mg PO DAILY meloxicam 15 mg PO DAILY nebulizers As directed prazosin 6 mg PO BEDTIME sub-q insulin device, 20 unit (V-GO 20 device) As directed use 1 VGO every 24 hrs sucralfate 10 mL PO BID venlafaxine ER (Effexor XR) 150 mg PO DAILY HPI Comments Details: 73-year-old female with seropositive RA returns for follow-up. She remains on Enbrel weekly. Said she continues to have some pain in her fingers, right shoulder. She was evaluated by hand surgeon and was found to have ruptured her left ring finger flexor tendon. Surgery was recommended but patient states that she will be going to [place] soon for approximately 3 weeks. Initial history : This is a 72-year-old female who presents for evaluation of joint pain. Patient states that she started having pain and swelling of her hands and feet, ankles over the last 6 months associated with morning stiffness lasting 10 minutes. She has had back pain for years. Meloxicam is not helpful. She is unaware of any family history of autoimmune rheumatic disease. She denies any skin rashes. Denies any history of DVT/PE or recurrent abortions. [facility] Medical History Hypothyroidism (04/21/1959) Hyperlipidemia (04/21/1959) Depressive disorder (04/21/1959) Recurrent falls (12/04/11) Nutritional anemia (04/21/1959) Iron deficiency anemia (04/21/1959) Fibromyositis (04/21/1959) Eczema (04/21/1959) High risk medication use Hepatitis C antibody positive in blood Screening for osteoporosis Screening for viral disease Joint swelling Overweight (BMI 25.0-29.9) Neck pain Swelling of knee joint, right Intra-abdominal abscess Diabetes Elevated liver function tests Intestinal malabsorption following gastrectomy Obesity (BMI 30-39.9) 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 Hypertension Cholecystitis Hyperlipidemia, unspecified Essential hypertension Atherosclerotic cardiovascular disease NSTEMI (non-ST elevated myocardial infarction) Fibromyalgia Folliculitis Anxiety Depression History of myocardial infarction Diabetes type 1, uncontrolled Hyperparathyroidism due to vitamin D deficiency Dyslipidemia Rona's disease Hypothyroidism Surgical History History of bypass gastroenterostomy (11/13/17) S/P laparoscopic cholecystectomy Status post gastric bypass for obesity History of esophagogastroduodenoscopy (EGD) H/O colonoscopy History of laparoscopic cholecystectomy History of bladder suspension procedure Status post laser cataract surgery of both eyes Hx of appendectomy H/O gastric bypass Family History Father No problems noted. Mother CVA (cerebral vascular accident) Sister Hypertension Brother Hypertension Liver cancer Social History Household Members: None Housing: Apartment Are you a primary child care nurse to a significant other at home: No Do you presently have visiting nurse or other home services: Yes Unable to assess alcohol history related to: Unable to respond Alcohol intake: never Patient Tobacco Use Status: Never used Tobacco service: No Current occupational status: disabled Current occupation: right hand dominant Review of Systems Musc Reports arthralgias, Reports limited range of motion and Reports stiffness Physical Exam Vital Signs: Last Vital Signs Pulse 92 08/19/23 09:57 BP 140/64 H 08/19/23 09:57 Pulse Ox 96 08/19/23 09:57 Oxygen Delivery Method Room Air 08/19/23 09:57 BMI result Body Mass Index 34.1 Const General: cooperative, healthy appearing and comfortable Nutritional Appearance: obese Orientation/consciousness: patient oriented x3 Limitations: no limitations HEENT Head: Yes normocephalic and Yes atraumatic Resp Effort & Inspection: normal respiratory effort and able to speak in complete sentences Auscultation: clear to auscultation bilaterally Neuro General: patient oriented x3 Extrem Other: Prominent RA deformities in both hands with some ulnar deviation at the MCPs Right 3rd and 4th 4th MCP swelling and tenderness Left 4th MCP tenderness Deformity of left ring finger and pain with any range of motion of left ring finger Triggering of left ring finger Much improved range of motion of right shoulder, almost normal Positive empty can test and positive Speed's test Pain with right shoulder passive and active abduction No knee pain, swelling or warmth No ankle swelling or tenderness bilaterally No MTP tenderness and negative MTP squeeze test bilaterally Normal nailfold capillaroscopy Kyphotic Results Reviewed Results Reviewed: Labs 08/2022 SUSAN 1-12 80 fine speckled Labs 09/2022 RF 15.3 ( <13.0) SUSAN 1-640 fine speckled CCP negative [facility] [address] [place], [place] [address] Mammography Report Signed Patient: Brandie Santana MR#: [id number] : 1950 Acct:[id number] Age/Sex: 73 / F ADM Date: 06/05/23 Loc: MAMMO Attending Dr: Briseida Rocha MD Ordering Physician: Briseida Rocha MD Results: Date of Service: 06/05/23 Follow Up: Procedure(s): XR DEXA axial skeleton Accession Number(s): [id number] cc: Pascual Darnell MD; Briseida Rocha MD~ EXAMINATION: BONE DENSITOMETRY CLINICAL INDICATION: Age-related osteoporosis without current pathological fracture. COMPARISON: Baseline BD dated 03/24/2015. TECHNIQUE: Using a Betabrand DXA System (software version: 13.1) manufactured by [employer], dual-energy x-ray absorptiometry was performed of the lumbar spine and left hip. The images are of good technical quality. Summary results are attached. FINDINGS: LEFT FEMUR, NECK: Current: BMD 0.506 g/cm2, Z-score -2.1, T-score -3.8, osteoporosis. Baseline: BMD 0.625 g/cm2. LEFT FEMUR, TOTAL: Current: BMD 0.494 g/cm2, Z-score -2.6, T-score -4.1, osteoporosis, 27.2% decrease from baseline (<5% change is not significant). Baseline: BMD 0.679 g/cm2. AP SPINE L1-L4: Current: BMD 0.745 g/cm2, Z-score -2.1, T-score -3.6, osteoporosis, 13.7% decrease from baseline (<5% change is not significant). Baseline: BMD 0.863 g/cm2. IDENTIFIED RISK FACTORS: Early menopause, recurrent falls, rheumatoid arthritis, secondary osteoporosis (type 1 diabetes, hyperthyroidism, partial gastrectomy). HISTORY OF FRACTURE: None listed. MEDICATIONS: Calcium or multivitamin. Vitamin D. MM/XR DEXA axial skeleton IMPRESSION: 1. DIAGNOSIS: Osteoporosis based on the lowest T-score value of -4.1 in the total femur applying World Health Organization criteria. 2. 10-YEAR FRACTURE RISK PREDICTION, FRAX: According to the guidelines, FRAX calculation should only be performed on patients in the osteopenia bone density category. Therefore, FRAX was not performed on this patient. Assessment & Plan Assessment & Plan (1) Seropositive rheumatoid arthritis: Comment: +RF -ve CCP dx 02/10 Enbrel 02/2023 partially effective Code(s): M05.9 - Rheumatoid arthritis with rheumatoid factor, unspecified Category: Medical Plan: This is a 73-year-old female with seropositive RA who returns for follow-up. On Enbrel 50 mg weekly. Continues to have swollen and tender joints. Unfortunately patient ruptured her radial sagittal band on the left hand. Which is a sign of a controlled RA. Continues to have elevated inflammatory markers. Will need to change DMARDs. Discussed risks and benefits of Actemra. Patient agreed to proceed. Will start prior authorization for Actemra Labs before next visit in 3 months (2) Hepatitis C antibody positive in blood: Code(s): R76.8 - Other specified abnormal immunological findings in serum Category: Medical Plan: Positive hepatitis-C antibody with negative hep C RNA. Labs in 2021 showed negative hepatitis-C antibody. Unclear cause. Patient might have cleared hepatitis C infection or a lab error. (3) High risk medication use: Code(s): Z79.899 - Other press tender long goods (current) drug therapy Category: Medical Plan: Side effects of Actemra were discussed with the patient in detail including increased risk of infection, reactivation of latent TB, possible increased risk of solid and skin tumors. Patient fully aware. Advised patient to seek medical care JEFFREY if patient has an infection and advised patient to stop the medication until the infection is resolved. (4) 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: Code(s): S63.659A - Sprain of metacarpophalangeal joint of unspecified finger, initial encounter Category: Medical Qualifiers: Encounter type: initial encounter Qualified Code(s): S63.659A - Sprain of metacarpophalangeal joint of unspecified finger, initial encounter Plan: I think this is due to poorly-controlled rheumatoid arthritis. She was evaluated by hand surgeon and surgery was suggested but patient's HbA1c is above 8%. (5) Osteoporosis: Comment: DEXA 05/2023 Left femur neck T-score-3.8 Left femur total-4.1 L-spine T-score -3.6 Code(s): M81.0 - Age-related osteoporosis without current pathological fracture Category: Medical Qualifiers: Osteoporosis type: age-related Presence of current pathological fracture: without current pathological fracture Qualified Code(s): M81.0 - Age-related osteoporosis without current pathological fracture Plan: DEXA shows severe osteoporosis. Patient needs antiresorptive therapy. I do not believe Fosamax would be adequate given the severity of her osteoporosis. We discussed risks and benefits of Reclast. Patient agreed to proceed. Will start prior authorization for Reclast Advised patient to avoid falls. Will check vitamin-D level before next visit Plan I spent 46 minutes reviewing patient's chart, evaluating patient, ordering diagnostic workup, counseling patient and documenting in the chart Orders: Orders Comprehensive Met. Panel 3 Months M05.9 - Rheumatoid arthritis with rheumatoid factor, unspecified C Reactive Protein 3 Months M05.9 - Rheumatoid arthritis with rheumatoid factor, unspecified Parathyroid Hormone Intact 3 Months M81.0 - Age-related osteoporosis without current pathological fracture Vitamin D 25-OH Total 3 Months Z13.21 - Encounter for screening for nutritional disorder Complete Blood Count Auto Diff 3 Months M05.9 - Rheumatoid arthritis with rheumatoid factor, unspecified Erythrocyte Sedimentation Rate 3 Months M05.9 - Rheumatoid arthritis with rheumatoid factor, unspecified Phosphorus 3 Months M81.0 - Age-related osteoporosis without current pathological fracture TSH reflex Free T4 3 Months M81.0 - Age-related osteoporosis without current pathological fracture Referrals Infusion Center Notification M81.0 - Age-related osteoporosis without current pathological fracture Coding Level of Care Code Est Pt Level 5 (38117) Complex EM visit Add On G2211 Diagnoses Seropositive rheumatoid arthritis M05.9 Hepatitis C antibody positive in blood R76.8 High risk medication use Z79.899 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, initial encounter S63.857B Encounter type: initial encounter Age-related osteoporosis without current pathological fracture M81.0 Osteoporosis type: age-related Presence of current pathological fracture: without current pathological fracture
[2023-08-19 09:57] VITALS: BP 140/64; PULSE 92; O2SAT 96; BMI 34.1
== END 2023-08-19 10:33 | disposition home or self-care (01) ==
PROVIDERS: PCP Internal Medicine; Visit Provider Student in an Organized Health Care Education/Training Program
DX: M05.79 Rheumatoid arthritis with rheumatoid factor of multiple sites without organ or systems involvement (principal); R76.8 Other specified abnormal immunological findings in serum; Z79.899 Other long term (current) drug therapy; S63.659A Sprain of metacarpophalangeal joint of unspecified finger, initial encounter; M81.0 Age-related osteoporosis without current pathological fracture
CPT/HCPCS: 99215; G2211

== ENCOUNTER → 2023-08-19 09:52 | Outpatient (BNVA) | payer OTHER, SELFPAY | PROVIDERS: PCP Internal Medicine; Visit Provider Student in an Organized Health Care Education/Training Program | DX: M05.9 Rheumatoid arthritis with rheumatoid factor, unspecified (principal); R76.8 Other specified abnormal immunological findings in serum; M81.0 Age-related osteoporosis without current pathological fracture; S63.659A Sprain of metacarpophalangeal joint of unspecified finger, initial encounter; Z79.899 Other long term (current) drug therapy | CPT/HCPCS: 99212 ==

== ENCOUNTER 2023-08-21 10:10 | Outpatient (AMB) | payer OTHER, SELFPAY ==
[2023-08-21 10:16] VITALS: BP 141/64; PULSE 80; BMI 34.3
--- NOTE | 2023-08-21 10:16 | MHC.OFFVIS ---
Vital Signs 08/21/23 10:16 Height 4 ft 11 in Weight 170 lb BMI 34.3 BP 141/64 H Blood Pressure Location Rt brachial Position Sitting Pulse 80 Intake Visit Reasons: 6 months follow up. Intake Note: Brandie returns to in office 6 months follow up of GERD and CIC. CC: Patient reports that she can't have a BM unless she takes medications, c/o abdominal pain, and nausea. Credit Control Administrator Required: Yes Allergies lorazepam [LORAZEPAM] Allergy (Severe, Verified 08/21/23 10:29) DELIRIUM celecoxib [From Celebrex] Allergy (Intermediate, Verified 08/21/23 10:29) ITCHING tramadol [TRAMADOL] Allergy (Intermediate, Verified 08/21/23 10:29) ITCHING zolpidem [Ambien] Allergy (Unknown, Verified 08/21/23 10:) unknown HPI HPI 6 months follow up.: Details: Assessment & Plan (1) GERD (gastroesophageal reflux disease): Code(s): K21.9 - Gastro-esophageal reflux disease without esophagitis (2) Chronic idiopathic constipation: Code(s): K59.04 - Chronic idiopathic constipation Plan Serbian #[id number] It appears she has a new diagnosis of sero-positive rheumatoid arthritis. This certainly explains the wrist swelling. She has been started on injections for this. She received the LInzess at 290mcg and the esomeprazole and she feels these are controlling her CIC and she also has bisacodyl available. She continues to feel fatigue and body aches. This is most likely from her RA and it takes time for the medication to take full effect. I encouraged her to continue to communicate with her four slide machine operator about this. ROV 6 mos. TODAY'S VISIT Serbian #[place] She continues to do well on her Linzess 290 and her esomeprazole. She feels these worked well to control her GI conditions. 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 They are waiting until her blood pressure and blood sugars are better controlled to proceed with this. Her last colonoscopy was in [address] Castillo and she denies any family history of colon cancer so she will be due again in 2027. Return office visit in 6 months. [facility] Medical History (Updated 08/21/23 @ 10:45 by LUCIANO Jung) Hyperlipidemia (04/21/1959) Depressive disorder (04/21/1959) Nutritional anemia (04/21/1959) Shortness of breath Hypothyroidism (04/21/1959) Anemia Chronic gastritis Heart palpitations NSTEMI (non-ST elevated myocardial infarction) Recurrent falls (12/04/11) Iron deficiency anemia (04/21/1959) Fibromyositis (04/21/1959) Eczema (04/21/1959) High risk medication use Hepatitis C antibody positive in blood Screening for osteoporosis Screening for viral disease Joint swelling Overweight (BMI 25.0-29.9) Neck pain Swelling of knee joint, right Intra-abdominal abscess Diabetes Elevated liver function tests Intestinal malabsorption following gastrectomy Obesity (BMI 30-39.9) 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 Hypertension Cholecystitis Hyperlipidemia, unspecified Essential hypertension Atherosclerotic cardiovascular disease Fibromyalgia Folliculitis Anxiety Depression History of myocardial infarction Diabetes type 1, uncontrolled Hyperparathyroidism due to vitamin D deficiency Dyslipidemia Rona's disease Hypothyroidism Surgical History (Updated 08/21/23 @ 10:45 by LUCIANO Jung) History of bypass gastroenterostomy (11/13/17) H/O gastric bypass S/P laparoscopic cholecystectomy Status post gastric bypass for obesity History of esophagogastroduodenoscopy (EGD) H/O colonoscopy History of laparoscopic cholecystectomy History of bladder suspension procedure Status post laser cataract surgery of both eyes Hx of appendectomy Family History Father No problems noted. Mother CVA (cerebral vascular accident) Sister Hypertension Brother Hypertension Liver cancer Social History Household Members: None Housing: Apartment Are you a primary career placement services counselor to a significant other at home: No Do you presently have visiting nurse or other home services: Yes Unable to assess alcohol history related to: Unable to respond Alcohol intake: never Patient Tobacco Use Status: Never used Tobacco service: No Current occupational status: disabled Current occupation: right hand dominant Review of Systems Const Denies fatigue, Denies fever(s), Reports frequent falls, Denies night sweats, Denies poor appetite and Denies weight loss ENT Reports Normal hearing present, Denies dental pain, Denies dysphagia, Denies hearing loss, Denies mouth pain, Denies odynophagia, Denies throat swelling, Denies tongue swelling and Reports other (Dentition adequate) Card Reports no additional complaints and Reports dyspnea on exertion Resp Reports dyspnea on exertion GI Details: Denies abdominal pain, Denies melena, Denies bloating, Denies hematochezia, Reports constipation, Denies GI cramping, Denies dysphagia, Denies excessive flatus, Denies early satiety, Reports heartburn, Denies diarrhea, Denies nausea, Denies odynophagia, Denies vomiting and Denies hematemesis Musc Reports back pain, Reports myalgias, Reports arthralgias, Reports limited range of motion and Reports stiffness Skin/Breast Denies pruritus, Denies lesions, Denies rash and Denies jaundice Neuro Reports Normal hearing present, Denies Abnormal speech present and Reports frequent falls Psych Reports anxiety and Reports depression Endo Denies fatigue Aller/Immun Denies throat swelling and Denies tongue swelling Physical Exam Vital Signs: Last Vital Signs Pulse 80 08/21/23 10:16 BP 141/64 H 08/21/23 10:16 BMI result Body Mass Index 34.3 Const General: cooperative, no acute distress, well developed and well groomed Nutritional Appearance: well nourished and obese Orientation/consciousness: oriented to person, oriented to place and oriented to time Limitations: language barrier and physical limitations HEENT Head: Yes normocephalic and Yes atraumatic Eyes General: appearance normal, both eyes and all related structures Pupils: Equal, round and reactive pupils present Neck Neck: Yes normal visual inspection and Yes no lymphadenopathy Thyroid: Thyroid normal Resp Effort & Inspection: normal respiratory effort and able to speak in complete sentences Auscultation: clear to auscultation bilaterally Cardio Rate: regular rate Rhythm: regular rhythm Heart sounds: Normal, physiologic split S2 sound present Peripheral pulses: radial pulses present and posterior tibial pulses present GI Inspection: No distended, Yes Abdominal panniculus present and Yes obesity Palpation (GI): Soft to palpation, nontender, no guarding, not rigid and No hepatosplenomegaly present Percussion: Yes normal to percussion Auscultation: normal bowel sounds Rectal Exam - Female: deferred Skin General skin exam: no rashes or lesions noted, turgor normal, skin not dry, no jaundice, No spider nevi and no striae Rashes: no rashes Nails: normal Neuro General: oriented to person, oriented to place and oriented to time Cranial nerves: Yes Equal, round and reactive pupils present and Yes Normal hearing present Speech: No Abnormal speech present Extrem Other: Ulnar deviation of the fingers wrist swelling General: No clubbing, No cyanosis, No edema and Yes Dysmorphic Psych Appearance: grossly normal and well kempt Mental Status: mental status grossly normal Speech and movement: Normal speech and movement present Affect: normal affect Attitude: cooperative Thought process: Normal thought process present and not confabulating Thought content: Normal thought content present Insight: Limited insight present (Psych) Judgement: Limited judgement present (Psych) Assessment & Plan Assessment & Plan (1) GERD (gastroesophageal reflux disease): Code(s): K21.9 - Gastro-esophageal reflux disease without esophagitis Category: Medical (2) Chronic idiopathic constipation: Code(s): K59.04 - Chronic idiopathic constipation Category: Medical Plan Serbian #[place] She continues to do well on her Linzess 290 and her esomeprazole. She feels these worked well to control her GI conditions. 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 They are waiting until her blood pressure and blood sugars are better controlled to proceed with this. Her last colonoscopy was [place] [address] Castillo and she denies any family history of colon cancer so she will be due again in 2027. Return office visit in 6 months. Medications: Refilled linaclotide (Linzess) 290 mcg PO QAM 30 caps 6RF K59.04 - Chronic idiopathic constipation esomeprazole magnesium 40 mg PO DAILY 30 caps 6RF K21.9 - Gastro-esophageal reflux disease without esophagitis Coding Level of Care Code Est Pt Level 3 (17077) Diagnoses GERD (gastroesophageal reflux disease) K21.9 Chronic idiopathic constipation K59.04
== END 2023-08-21 11:01 | disposition home or self-care (01) ==
PROVIDERS: PCP Internal Medicine; Visit Provider Nurse Practitioner
DX: K21.9 Gastro-esophageal reflux disease without esophagitis (principal); K59.04 Chronic idiopathic constipation
CPT/HCPCS: 99213

== ENCOUNTER → 2023-08-21 10:10 | Outpatient (BNVA) | payer OTHER, SELFPAY | PROVIDERS: PCP Internal Medicine; Visit Provider Nurse Practitioner | DX: K21.9 Gastro-esophageal reflux disease without esophagitis (principal); K59.04 Chronic idiopathic constipation | CPT/HCPCS: 99212 ==

== ENCOUNTER 2023-09-09 10:47 | Inpatient (IN) | payer OTHER, SELFPAY ==
--- NOTE | ~2023-09-09 | XR_ITS ---
EXAMINATION: XR CHEST CLINICAL INFORMATION: Pleural effusion? COMPARISON: 09/09/2019 TECHNIQUE: Frontal view of the chest was obtained. FINDINGS: Right lung is clear. Left lung diminished in volume due to multiple rib fractures and pleural thickening. There is no obvious pleural effusion otherwise. Cardiomediastinal silhouette is normal. XR/XR chest 1V IMPRESSION: Multiple rib fractures and pleural thickening on the left
--- NOTE | ~2023-09-09 | CT_ITS ---
EXAMINATION: CT CHEST WITH CONTRAST CLINICAL INFORMATION: Shortness of breath and cough COMPARISON: Same day chest radiograph TECHNIQUE: Multidetector volumetric CT imaging of the chest was obtained after the administration of 50 mL of Omnipaque 350 intravenous contrast without immediate adverse reactions. Axial MIP volume rendering provided. Sagittal and coronal reformatted images were obtained. This CT examination was performed using dose optimization techniques as appropriate, variously including the following: *Automated exposure control *Adjustment of mA and/or kV according to patient size (this includes techniques or standardized protocols for targeted exams where dose is matched to indication/reason for exam; i.e. extremities or head) *Use of iterative reconstruction technique DLP: 3:30 mGy-cm FINDINGS: GREEN BUILDING MATERIALS DISTRIBUTOR: Left displaced rib fractures and pleural thickening. Upper abdominal cholecystectomy clips. LUNGS: Study limited by respiratory motion. Trachea and bronchi are patent. Bilateral atelectasis, most pronounced left upper lobe. No consolidations. No groundglass opacities. Possible 4 mm right upper lobe nodule, 4:15 MEDIASTINUM: The mediastinum is normal. PLEURA:. Bilateral small pleural effusions, left greater than right. Left lateral midlung pleural thickening adjacent to displaced rib fractures. Lateral no pneumothorax. AXILLA: No lymphadenopathy. UPPER ABDOMEN: Status post cholecystectomy and gastric bypass. Fecal retention. OSSEOUS STRUCTURES: Multiple left-sided rib fractures. Second displaced anterior and mildly displaced posterolateral rib fractures. Third and fourth displaced posterior and displaced/depressed depressed lateral rib fractures. Fifth displaced posterior and nondisplaced lateral rib fractures. Sixth mildly displaced posterior and minimally displaced lateral rib fractures. CT/CT chest w IV con IMPRESSION: Second through sixth left-sided rib fractures, with 2 fracture components each, meeting the criteria for flail chest. Associated left pleural thickening adjacent to displaced and inwardly depressed third and fourth lateral rib fractures. Bilateral small effusions, left greater than right. Possible 4 mm right upper lobe pulmonary nodule, study limited by respiratory motion. Per Fleischner criteria, in high risk patients, optional CT at 12 months may be obtained. If stable at 12 months, no further follow-up recommended. In low-risk patients, no routine follow-up necessarily required.
--- NOTE | ~2023-09-09 | XR_ITS ---
EXAMINATION: XR CHEST CLINICAL INFORMATION: Cough, recent rib fracture, trouble breathing, cough. COMPARISON: 04/16/2023 TECHNIQUE: 2 views of the chest were obtained. FINDINGS: Lung volumes are low. Redemonstration of biapical pleural thickening. No gross pneumothorax. Stable cardiomediastinal silhouette. Multiple displaced left rib fractures. Hazy opacities along the periphery and mid to lower aspects of the left hemithorax suggest pleural-parenchymal process related to trauma with moderate left pleural effusion. XR/XR chest 2V IMPRESSION: Multiple displaced left rib fractures. Hazy opacities along the periphery and mid to lower aspects of the left hemithorax suggest pleural-parenchymal process related to trauma. CT scan of the chest recommended for further evaluation. This study was presented today, September 09, 2023, for interpretation. Stat results provided at this time as requested by referring provider.
--- NOTE | 2023-09-09 10:56 | ED.FALL ---
HPI - Fall General Chief Complaint: Fall Stated Complaint: Pt fell & fx left clavicle & ribs. Per ems Time Seen by Provider: 09/09/23 10:54 Source: patient, EMS and old records reviewed Mode of arrival: EMS Limitations: no limitations History of Present Illness ED Provider: Lisa Jeffery PA-C HPI Narrative: 73-year-old Danish speaking female with history of anxiety, depression, diabetes, Rona disease, constipation, osteoarthritis, HTN, GERD, rheumatoid arthritis, iron deficiency anemia, history of recurrent falls who presents to the ER for evaluation of cough and ongoing left sided rib pain after she fell out of a high bed while visiting family in [place] on 08/27/23. She sustained a left clavicle fracture and 1 rib fracture per her report. She states they did x-rays and a CT scan at that time. She was discharged with Robaxin and lidocaine patches along with a sling. She states she recently ran out of her medication for pain. She has been coughing more with worsening pain in the ribs every day. She states she has difficulty sleeping due to the pain. She just started getting nausea and chills as well. No fevers. No chest pain or difficulty breathing. No abdominal pain.She denies any further trauma or falling. She has not on anticoagulation. MD complaint: fall Onset (ago): week(s) Fall from: standing Fall witnessed: no Associated symptoms (after fall): denies Related Data Home Medications ?Medication ?Instructions ?Recorded ?Confirmed venlafaxine 150 mg 150 mg PO DAILY 01/28/20 05/12/23 capsule,extended release 24 hr (Effexor XR) hydroxyzine HCl 10 mg tablet 10 mg PO Q8H PRN Anxiety 02/22/20 05/12/23 clonazepam 0.5 mg tablet 1 tab PO Q8H PRN anxiety 01/02/21 05/12/23 blood-glucose meter,continuous 01/11/22 05/12/23 (Dexcom G6 Threading Machine Tender) amlodipine 10 mg tablet 10 mg PO DAILY 05/14/22 05/12/23 prazosin 2 mg capsule 6 mg PO BEDTIME 05/14/22 05/12/23 meloxicam 15 mg tablet 15 mg PO DAILY 10/08/22 05/12/23 aripiprazole 20 mg tablet 20 mg PO DAILY 09/22/23 01/22/24 losartan 100 mg tablet 100 mg PO DAILY 07/30/23 atorvastatin 20 mg tablet 20 mg PO DAILY 08/21/23 carvedilol 6.25 mg tablet 6.25 mg PO BID 08/21/23 chlorhexidine gluconate 0.12 % PO 08/21/23 mouthwash gabapentin 100 mg capsule mg PO 08/21/23 melatonin 3 mg tablet 3 mg PO BEDTIME 08/21/23 Previous Rx's ?Medication ?Instructions ?Recorded insulin syringe-needle U-100 0.3 #100 ea 06/13/20 mL 31 gauge x 5/16 (BD Insulin Syringe Ultra-Fine) blood-glucose meter (FreeStyle #1 ea 05/20/22 Lite Meter kit) BD Cherelle 2nd Gen Pen Needle 32 #200 ea 10/16/22 gauge x 5/32 (pen needle, diabetic) glucagon 3 mg/actuation nasal 3 mg intranasal ONCE unresponsive 11/08/22 spray (Baqsimi) hypoglycemia 30 days #2 ea clopidogrel 75 mg tablet 75 mg PO QAM #30 tabs 03/05/23 insulin degludec 100 unit/mL (3 30 unit (0.3 mL) subcut DAILY #15 03/17/23 mL) subcutaneous pen (Tresiba mL FlexTouch U-100 insulin) albuterol sulfate 90 mcg/actuation 2 puff inhalation Q4-6H PRN 04/10/23 aerosol inhaler shortness of breath or wheezing #8.5 grams albuterol sulfate 2.5 mg/3 mL 2.5 mg (3 mL) inhalation Q3H PRN 04/18/23 (0.083 %) solution for nebulization sob #180 mL guaifenesin 600 mg tablet, 600 mg PO BID #14 tabs 04/18/23 extended release 12 hr (Mucinex) ipratropium 0.5 mg-albuterol 3 mg 3 ml inhalation RQ4H WHILE AWAKE 7 04/18/23 (2.5 mg base)/3 mL nebulization days #180 mL soln nebulizers #1 ea 04/18/23 bisacodyl 5 mg tablet,delayed 10 mg (2 x 5 mg) PO BEDTIME #60 04/24/23 release tabs blood sugar diagnostic (FreeStyle #200 strips 04/29/23 Lite Strips) calcium citrate 200 mg (950 mg) 400 mg (2 x 200 mg (950 mg)) PO 05/22/23 tablet BID #120 tabs folic acid 1 mg tablet 1 mg PO DAILY #90 tabs 05/28/23 cholecalciferol (vitamin D3) 50 50 mcg PO QAM #30 caps 06/20/23 mcg (2,000 unit) capsule (Vitamin D3) levothyroxine 112 mcg tablet 112 mcg PO DAILY #30 tabs 07/02/23 insulin aspart See Rx Instructions subcut QID #30 07/22/23 (niacinamide)(U-100) 100 unit/mL(3 mL mL) subcutaneous pen (Fiasp FlexTouch U-100 Insulin) sub-q insulin device, 20 unit #30 ea 07/22/23 (V-GO 20 device) Actemra ACTPen 162 mg/0.9 mL 162 mg (0.9 mL) subcut Q2W #1.8 mL 08/21/23 subcutaneous pen injector (tocilizumab) esomeprazole magnesium 40 mg 40 mg PO DAILY #30 caps 08/21/23 capsule,delayed release linaclotide 290 mcg capsule 290 mcg PO QAM #30 caps 08/21/23 (Linzess) Allergies Allergy/AdvReac Type Severity Reaction Status Date / Time lorazepam [LORAZEPAM] Allergy Severe DELIRIUM Verified 09/09/23 11:04 celecoxib [From Celebrex] Allergy Intermediate ITCHING Verified 09/09/23 11:04 tramadol [TRAMADOL] Allergy Intermediate ITCHING Verified 09/09/23 11:04 zolpidem [Ambien] Allergy Unknown unknown Verified 09/09/23 11:04 Review of Systems Review of Systems: Yes all other systems are reviewed and are negative [facility] Past Medical History Medical History (Updated 09/09/23 @ 18:03 by MARK Soto) Hyperlipidemia (04/21/1959) Depressive disorder (04/21/1959) Nutritional anemia (04/21/1959) Shortness of breath Hypothyroidism (04/21/1959) Anemia Chronic gastritis Heart palpitations NSTEMI (non-ST elevated myocardial infarction) Recurrent falls (12/04/11) Iron deficiency anemia (04/21/1959) Fibromyositis (04/21/1959) Eczema (04/21/1959) High risk medication use Hepatitis C antibody positive in blood Screening for osteoporosis Screening for viral disease Joint swelling Overweight (BMI 25.0-29.9) Neck pain Swelling of knee joint, right Intra-abdominal abscess Diabetes Elevated liver function tests Intestinal malabsorption following gastrectomy Obesity (BMI 30-39.9) 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 Hypertension Cholecystitis Hyperlipidemia, unspecified Essential hypertension Atherosclerotic cardiovascular disease Fibromyalgia Folliculitis Anxiety Depression History of myocardial infarction Diabetes type 1, uncontrolled Hyperparathyroidism due to vitamin D deficiency Dyslipidemia Rona's disease Hypothyroidism Surgical History (Updated 08/21/23 @ 10:45 by LUCIANO Jung) History of bypass gastroenterostomy (11/13/17) H/O gastric bypass S/P laparoscopic cholecystectomy Status post gastric bypass for obesity History of esophagogastroduodenoscopy (EGD) H/O colonoscopy History of laparoscopic cholecystectomy History of bladder suspension procedure Status post laser cataract surgery of both eyes Hx of appendectomy Family History Family History Father No problems noted. Mother CVA (cerebral vascular accident) Sister Hypertension Brother Hypertension Liver cancer Social History Social History Household Members: None Housing: Apartment Are you a primary medicare nurse to a significant other at home: No Do you presently have visiting nurse or other home services: Yes Unable to assess alcohol history related to: Unable to respond Alcohol intake: never Patient Tobacco Use Status: Never used Tobacco Advance Directives: No Advance Directives Information Provided: No service: No Current occupational status: disabled Current occupation: right hand dominant Physical Exam Vital Signs: Vital Signs: Last Vital Signs Temp 97.5 F 09/09/23 11:01 Pulse 78 09/09/23 11:01 Resp 18 09/09/23 11:01 BP 173/73 H 09/09/23 11:01 Pulse Ox 98 09/09/23 11:01 O2 Del Method Room Air 09/09/23 11:01 BMI result Body Mass Index 35.9 Appearance: Alert. Oriented X3. No acute distress. Head: normocephalic, atraumatic. Eyes: Pupils equal, round and reactive to light. ENT: Pharynx normal. No tonsillar swelling or exudate. Neck: Normal inspection. Neck supple. left upper chest wall with yellowish ecchymosis over left clavicular area CVS: Normal heart rate and rhythm. Pulses normal. Respiratory: No respiratory distress. decreased breath sounds throughout the left side. No paradoxical breathing pattern. no significant ecchymosis of the left flank Abdomen: Soft and nontender. +BS x4 no left upper quadrant tenderness, no splenomegaly appreciated Skin: Skin warm and dry. Normal skin color. Normal skin turgor. No rashes. Extremities: No lower extremity edema. No joint swelling. left upper extremity held in flexion and adduction, sling in place Neuro/psych: Oriented X 3. No motor deficit. No sensory deficit. CN II-XII intact. Normal speech and cognition. Medications Administered Discontinued Medications Generic Name Dose Route Start Last Admin Trade Name Freq PRN Reason Stop Dose Admin Acetaminophen 975 mg 09/09/23 12:14 09/09/23 12:20 Acetaminophen 325 Mg Tablet PO 09/09/23 12:15 975 mg ONCE ONE Administration Hydromorphone HCl 1 mg 09/09/23 17:01 09/09/23 17:12 Hydromorphone Hcl 1 Mg/Ml Syringe IVPUSH 09/09/23 17:02 1 mg ONCE ONE Administration Protocol Iohexol 65 ml 09/09/23 14:34 09/09/23 14:35 Iohexol 350 Mg/Ml 75 Ml Infus..Btl IV 09/09/23 14:35 65 ml ONCE ONE Administration Lidocaine 1 patch 09/09/23 12:15 09/09/23 12:20 Lidocaine 4 % Patch Adh..Patch TRANSDERMA 09/09/23 12:16 1 patch ONCE ONE Administration Protocol Morphine Sulfate 4 mg 09/09/23 13:59 09/09/23 14:07 Morphine Sulfate 4 Mg/Ml Cartridge IVPUSH 09/09/23 14:00 4 mg ONCE ONE Administration Protocol Ondansetron HCl 4 mg 09/09/23 13:59 09/09/23 14:08 Ondansetron Hcl 4 Mg/2 Ml Vial IVPUSH 09/09/23 14:00 4 mg ONCE ONE Administration Medical Decision Making Medical Decision Making MDM Narrative: 73-year-old Danish speaking female with history of anxiety, depression, diabetes, Rona disease, constipation, osteoarthritis, HTN, GERD, rheumatoid arthritis, iron deficiency anemia, history of recurrent falls who presents to the ER for evaluation of cough and ongoing left sided rib pain after she fell out of a high bed while visiting family in [place] on 08/27/23. x-ray ordered on arrival to the ER and is very abnormal. Multiple displaced rib fractures were appreciated with likely hemothorax on the left side. Therefore a CT scan was done. Patient was given IV morphine and Zofran for complaints of pain and nausea. She reports the pain is 10/10. Lab work was done which shows a slightly worsening anemia with H&H of 10 and 32 from a baseline of 11 and 36. She is hemodynamically stable, hypertensive likely due to pain. Patient was hypoglycemic x2 on arrival. She had sugars in the 30s and 40s but was minimally symptomatic. She was awake, alert. She was given p.o. intake and her sugar improved to low 100s. CT scan of the chest was obtained, Dr. Haas from thoracic surgery asked to review the images. Patient will require surgical intervention, he is recommending admission to the Medicine Service, medical optimization, pain control, cardiac clearance prior to surgical intervention. Spoke with medicine service who is recommending admission to thoracic surgery service. this was relayed to Dr. Haas at 16:[address] Haas directly again about management of this patient. He is recommending pain control, epidural, pulmonary toilet. at this time there is no surgical intervention planned. Presumed date of injury was 08/26. Attempting to get records from hospital in [place] now to see if the extent of injury was present at that time. Use property staff accountant to reconfirm that there was no additional trauma or injury and she did confirm this. Differential Diagnosis Differential Diagnoses: The differential diagnosis associated with the presentation includes Multiple displaced rib fractures, hemothorax, pneumothorax, pneumonia, pulmonary contusion, flail chest Admission/Observation Consideration of admission/observation: Escalation of care including admission/observation considered Consult Healthcare Provider Management of the patient was discussed with: Hospitalist and Life Skills Coordinator Dr. Waldo Jaffe Lab Data MDM Lab Attestation statement: I reviewed the patient's lab results. Mild anemia recurrent hypoglycemia 09/09/23 12:13 09/09/23 12:13 Labs: Lab Results 09/09/23 09/09/23 09/09/23 Range/Units 11:18 11:21 11:25 WBC (4.8-10.8) X10*3/uL RBC (4.20-5.50) X10*6/uL Hgb (12.0-16.0) g/dl Hct (37.0-47.0) % MCV (80.0-98.0) fL MCH (27.0-33.0) pg MCHC (31.0-35.0) g/dl RDW (11.0-16.0) % Plt Count (160-400) X10*3/uL MPV (9.4-12.3) fL Immature Gran % (Auto) (0.0-0.4) % Neut % (Auto) (45-73) % Lymph % (Auto) (20-40) % Barren % (Auto) (2-11) % Eos % (Auto) (0-4) % Baso % (Auto) (0-2) % Lymph # (Auto) (1.2-4.9) X10*3/uL Barren # (Auto) (0.1-1.2) X10*3/uL Eos # (Auto) (0.0-0.4) X10*3/uL Baso # (Auto) (0.0-0.2) X10*3/uL Abs Immat Gran (auto) (0.00-0.03) X10*3/uL Absolute Neuts (auto) (2.0-8.3) x10*3/uL Absolute Nucleated RBC (0.0-0.012) X10*3/uL Nucleated RBC % (auto) (0.0-0.2) /100WBC Sodium (135-145) mmol/L Potassium (3.3-5.1) mmol/L Chloride (96-108) mmol/L Carbon Dioxide (22-29) mmol/L Anion Gap (12-20) BUN (9-16) mg/dL Creatinine (0.5-1.4) mg/dL Estim Creat Clear Calc Estimated GFR POC Glucose 40 L* 36 L* (60-115) mg/dL Random Glucose (60-115) mg/dL Calcium (8.4-10.2) mg/dL Magnesium (1.6-2.6) mg/dL Total Bilirubin (0.0-1.0) mg/dL Direct Bilirubin (0.0-0.5) mg/dL AST (5-31) U/L ALT (0-31) U/L Alkaline Phosphatase (39-117) U/L Total Protein (6.5-8.0) g/dL Albumin (3.5-5.0) g/dL Urine Color Urine Appearance Urine pH (5.0-9.0) Ur Specific [place] (1.005-1.025) Urine Protein (Neg-Trace) mg/dL Urine Glucose (UA) (Negative) mg/dL Urine Ketones (Negative) mg/dL Urine Blood (Negative) Urine Nitrite (Negative) Ur Leukocyte Esterase (Negative) Urine RBC (0-2) /HPF Urine WBC (0-5) /HPF Ur Squamous Epith Cells (0-2) /HPF Urine Bacteria (None Seen) Hyaline Casts (0-2) /LPF Influenza Type A (PCR) NEGATIVE (Negative) Influenza Type B (PCR) NEGATIVE (Negative) RSV RNA Qual (PCR) NEGATIVE (Negative) SARS-CoV-2 RNA (RT-PCR) NEGATIVE (Negative) 09/09/23 09/09/23 09/09/23 Range/Units 12:09 12:13 13:58 WBC 10.3 (4.8-10.8) X10*3/uL RBC 3.74 L (4.20-5.50) X10*6/uL Hgb 10.5 L (12.0-16.0) g/dl Hct 32.5 L (37.0-47.0) % MCV 86.9 (80.0-98.0) fL MCH 28.1 (27.0-33.0) pg MCHC 32.3 (31.0-35.0) g/dl RDW 14.3 (11.0-16.0) % Plt Count 309 D (160-400) X10*3/uL MPV 9.4 (9.4-12.3) fL Immature Gran % (Auto) 1.0 H (0.0-0.4) % Neut % (Auto) 51.1 (45-73) % Lymph % (Auto) 25.9 (20-40) % Barren % (Auto) 9.2 (2-11) % Eos % (Auto) 11.7 H (0-4) % Baso % (Auto) 1.1 (0-2) % Lymph # (Auto) 2.7 (1.2-4.9) X10*3/uL Barren # (Auto) 1.0 (0.1-1.2) X10*3/uL Eos # (Auto) 1.2 H (0.0-0.4) X10*3/uL Baso # (Auto) 0.1 (0.0-0.2) X10*3/uL Abs Immat Gran (auto) 0.10 H (0.00-0.03) X10*3/uL Absolute Neuts (auto) 5.3 (2.0-8.3) x10*3/uL Absolute Nucleated RBC 0.000 (0.0-0.012) X10*3/uL Nucleated RBC % (auto) 0.0 (0.0-0.2) /100WBC Sodium 140 (135-145) mmol/L Potassium 4.8 (3.3-5.1) mmol/L Chloride 108 (96-108) mmol/L Carbon Dioxide 23 (22-29) mmol/L Anion Gap 14 (12-20) BUN 22 H (9-16) mg/dL Creatinine 1.19 (0.5-1.4) mg/dL Estim Creat Clear Calc 38.7 Estimated GFR 44 POC Glucose 106 (60-115) mg/dL Random Glucose 100 (60-115) mg/dL Calcium 9.5 (8.4-10.2) mg/dL Magnesium 2.0 (1.6-2.6) mg/dL Total Bilirubin 0.2 (0.0-1.0) mg/dL Direct Bilirubin < 0.2 (0.0-0.5) mg/dL AST 16 (5-31) U/L ALT 10 (0-31) U/L Alkaline Phosphatase 151 H (39-117) U/L Total Protein 6.3 L (6.5-8.0) g/dL Albumin 3.5 (3.5-5.0) g/dL Urine Color Yellow Urine Appearance Cloudy Urine pH 5.5 (5.0-9.0) Ur Specific [place] 1.010 (1.005-1.025) Urine Protein Negative (Neg-Trace) mg/dL Urine Glucose (UA) Negative (Negative) mg/dL Urine Ketones Negative (Negative) mg/dL Urine Blood Negative (Negative) Urine Nitrite Positive H (Negative) Ur Leukocyte Esterase Small (1+) H (Negative) Urine RBC 0-2 (0-2) /HPF Urine WBC 21-50 H (0-5) /HPF Ur Squamous Epith Cells 6-10 (0-2) /HPF Urine Bacteria 4+ (None Seen) Hyaline Casts 3-5 (0-2) /LPF Influenza Type A (PCR) (Negative) Influenza Type B (PCR) (Negative) RSV RNA Qual (PCR) (Negative) SARS-CoV-2 RNA (RT-PCR) (Negative) Independent Interpretation I performed an independent interpretation of an: Plain X-Ray and CT Scan Interpretation: chest x-ray reviewed, significant abnormality with multiple displaced rib fractures, effusion on the left side/left-sided opacity CT chest with multiple rib fractures, small pleural effusion on the left, likely small hemothorax Radiology Impression Discussion of test interpretation with radiology: I have reviewed the radiologist's reading. Radiologist Impression: EXAMINATION: XR CHEST CLINICAL INFORMATION: Cough, recent rib fracture, trouble breathing, cough. COMPARISON: 04/16/2023 TECHNIQUE: 2 views of the chest were obtained. FINDINGS: Lung volumes are low. Redemonstration of biapical pleural thickening. No gross pneumothorax. Stable cardiomediastinal silhouette. Multiple displaced left rib fractures. Hazy opacities along the periphery and mid to lower aspects of the left hemithorax suggest pleural-parenchymal process related to trauma with moderate left pleural effusion. XR/XR chest 2V IMPRESSION: Multiple displaced left rib fractures. Hazy opacities along the periphery and mid to lower aspects of the left hemithorax suggest pleural-parenchymal process related to trauma. CT scan of the chest recommended for further evaluation. EXAMINATION: CT CHEST WITH CONTRAST CLINICAL INFORMATION: Shortness of breath and cough COMPARISON: Same day chest radiograph TECHNIQUE: Multidetector volumetric CT imaging of the chest was obtained after the administration of 50 mL of Omnipaque 350 intravenous contrast without immediate adverse reactions. Axial MIP volume rendering provided. Sagittal and coronal reformatted images were obtained. This CT examination was performed using dose optimization techniques as appropriate, variously including the following: *Automated exposure control *Adjustment of mA and/or kV according to patient size (this includes techniques or standardized protocols for targeted exams where dose is matched to indication/reason for exam; i.e. extremities or head) *Use of iterative reconstruction technique DLP: 3:30 mGy-cm FINDINGS: SADDLE AND SIDE WIRE STITCHER: Left displaced rib fractures and pleural thickening. Upper abdominal cholecystectomy clips. LUNGS: Study limited by respiratory motion. Trachea and bronchi are patent. Bilateral atelectasis, most pronounced left upper lobe. No consolidations. No groundglass opacities. Possible 4 mm right upper lobe nodule, 4:15 MEDIASTINUM: The mediastinum is normal. PLEURA:. Bilateral small pleural effusions, left greater than right. Left lateral midlung pleural thickening adjacent to displaced rib fractures. Lateral no pneumothorax. AXILLA: No lymphadenopathy. UPPER ABDOMEN: Status post cholecystectomy and gastric bypass. Fecal retention. OSSEOUS STRUCTURES: Multiple left-sided rib fractures. Second displaced anterior and mildly displaced posterolateral rib fractures. Third and fourth displaced posterior and displaced/depressed depressed lateral rib fractures. Fifth displaced posterior and nondisplaced lateral rib fractures. Sixth mildly displaced posterior and minimally displaced lateral rib fractures. CT/CT chest w IV con IMPRESSION: Second through sixth left-sided rib fractures, with 2 fracture components each, meeting the criteria for flail chest. Associated left pleural thickening adjacent to displaced and inwardly depressed third and fourth lateral rib fractures. Bilateral small effusions, left greater than right. Possible 4 mm right upper lobe pulmonary nodule, study limited by respiratory motion. Per Fleischner criteria, in high risk patients, optional CT at 12 months may be obtained. If stable at 12 months, no further follow-up recommended. In low-risk patients, no routine follow-up necessarily required. Independent Historian Clinical information obtained from an independent historian. History obtained from or confirmed by: Other ( SNUFF BOX FINISHER at the bedside) External Record Review External record reviewed: Outpatient record Tests considered The following testing was considered but not selected: CT abdomen pelvis was considered to evaluate for splenic injury however at the time of evaluation patient did not have any left sided abdominal tenderness Prescription Management I considered prescription management with: Pain Medication Chronic Conditions Patient?s care impacted by: Diabetes, Hypertension and Other ( anemia, recurrent falls,) Social Determinants Patient?s care significantly limited by Social Determinants of Health including: Other Social Determinant of Health Critical Care Time Critical Care Time Critical Care Time: Yes Total Critical Care Time: 76 Attestation: I have personally provided critical care time exclusive of time spent on separately billable procedures. Time includes review of lab data, radiology results, discussion with consultants, and monitoring for potential decompensation. Intervention performed as documented. Discharge Plan Discharge Clinical Impression: Closed flail chest, Hypoglycemia, Anemia Patient Disposition: Admitted As Inpatient Print Language: Danish
[2023-09-09 11:01] VITALS: BP 140/78; BP 173/73; PULSE 78; PULSE 95; RESP 18; TEMP 36.4; O2SAT 98; BMI 35.9
[2023-09-09 11:24] LABS: Glucose, Whole Blood 40 mg/dL (60-115)
[2023-09-09 11:27] LABS: Glucose, Whole Blood 36 mg/dL (60-115)
[2023-09-09 12:07] LABS: Influenza A PCR NEGATIVE (Negative); Influenza B PCR NEGATIVE (Negative); Resp Syncy Virus RNA Qual PCR NEGATIVE (Negative); SARS COV2 PCR INHOUSE NEGATIVE (Negative)
[2023-09-09 12:12] LABS: Glucose, Whole Blood 106 mg/dL (60-115)
[2023-09-09 12:18] LABS: MANUAL DIFF FLAG NO
[2023-09-09] MEDS: Lidocaine 4 % Patch ADH..PATCH 1 PATCH TRANSDERMA (12:20)
[2023-09-09] MEDS: Acetaminophen 325 MG TABLET 975 MG PO (12:20)
[2023-09-09 12:24] LABS: Basophils Absolute Auto 0.1 X10*3/uL (0.0-0.2); Basophils Percent Auto 1.1 % (0-2); Eosinophils Absolute Auto 1.2 X10*3/uL (0.0-0.4); Eosinophils Percent Auto 11.7 % (0-4); Hematocrit 32.5 % (37.0-47.0); Hemoglobin 10.5 g/dl (12.0-16.0); Lymphocytes Absolute Auto 2.7 X10*3/uL (1.2-4.9); Lymphocytes Percent Auto 25.9 % (20-40); Mean Corpuscular HGB Conc 32.3 g/dl (31.0-35.0); Mean Corpuscular Hemoglobin 28.1 pg (27.0-33.0); Mean Corpuscular Volume 86.9 fL (80.0-98.0); Mean Platelet Volume 9.4 fL (9.4-12.3); Monocytes Percent Auto 9.2 % (2-11); Neutrophils Absolute Auto 5.3 x10*3/uL (2.0-8.3); Neutrophils Percent Auto 51.1 % (45-73); Platelet Count 309 X10*3/uL (160-400); Red Blood Count 3.74 X10*6/uL (4.20-5.50); Red Cell Distribution Width 14.3 % (11.0-16.0); White Blood Count 10.3 X10*3/uL (4.8-10.8)
[2023-09-09 12:34] LABS: Alanine Aminotransferase 10 U/L (0-31); Albumin Level 3.5 g/dL (3.5-5.0); Alkaline Phosphatase 151 U/L (39-117); Anion Gap 14 (12-20); Aspartate Amino Transferase 16 U/L (5-31); Bilirubin Direct < 0.2 mg/dL (0.0-0.5); Bilirubin Total 0.2 mg/dL (0.0-1.0); Blood Urea Nitrogen 22 mg/dL (9-16); Calcium 9.5 mg/dL (8.4-10.2); Carbon Dioxide 23 mmol/L (22-29); Chloride 108 mmol/L (96-108); Creatinine Clr Calc Pharmacy 38.7; Estimated Glomerular Filt Rate 44; Glucose Random 100 mg/dL (60-115); Potassium 4.8 mmol/L (3.3-5.1); Sodium 140 mmol/L (135-145); Total Protein 6.3 g/dL (6.5-8.0)
[2023-09-09] MEDS: Morphine Sulfate 4 MG/ML CARTRIDGE IVPUSH (14:07)
[2023-09-09] MEDS: ondansetron HCL 4 MG/2 ML VIAL IVPUSH (14:08)
[2023-09-09 14:17] LABS: Appearance Urine Cloudy; Color Urine Yellow; Glucose Urine UA Negative (Negative); Leukocyte Esterase Urine Small (1+) (Negative); Nitrite Urine Positive (Negative); PH 5.5 (5.0-9.0); UMIC TRIGGER UACC YES; Urine Blood Negative (Negative); Urine Ketones Negative (Negative); Urine Protein Negative (Neg-Trace)
[2023-09-09 14:28] LABS: Bacteria Urine 4+ (None Seen); RBC Urine 0-2 /HPF (0-2); UACC Culture Trigger YES; WBC Urine 21-50 /HPF (0-5)
[2023-09-09] MEDS: iohexoL 350 MG/ML 75 ML INFUS..BTL 65 ML IV (14:35)
[2023-09-09] MEDS: HYDROmorphone HCl 1 MG/ML SYRINGE IVPUSH (17:12)
--- NOTE | 2023-09-09 18:10 | PM.IMHP ---
History of Present Illness Date of Service: 09/09/23 Chief Complaint: Intractable Left-sided chest pain 73-year-old Turkmen-speaking female with past medical history significant for diabetes mellitus on insulin, Rona's disease, hypertension, GERD, rheumatoid arthritis, iron deficiency anemia, history of anxiety depression presented to [facility] emergency room due to left-sided chest discomfort as per patient she was visiting family in [place] she has history of nightmares, on August 26 she turned in high bed and fell sustaining injury to left side of shoulder and chest she was seen in the emergency room and was told to have clavicle and 1 rib fracture she was discharged home on analgesics and muscle relaxers and was recommended outpatient orthopedic follow-up she returned back to her home yesterday and today presented to emergency room due to left-sided chest pain, difficulty sleeping, unable to take deep breaths due to pinching pain and due to worsening cough, she also complained of associated headache, dizziness, feeling chilly her last bowel movement was 2 days ago, denies abdominal pain, no nausea, no vomiting tolerating diet in the emergency room CT chest showed 2nd through 6 left-sided rib fractures with to fracture components each, meeting the criteria for flail chest associated with left pleural thickening adjacent to displaced in inwardly depressed 3rd and 4th lateral rib fractures, patient also noted to have bilateral small effusion left greater than right and a possible 4 mm right upper lobe pulmonary nodule,, 12 month follow-up for high-risk patient is recommended, patient denies history of smoking, denies recurrent trauma or fall ambulates with cane, not on anticoagulation lives alone with 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 Review of Systems Review of Systems: General positive headache and dizziness CVS left-sided chest pain with breathing and coughing Gastrointestinal no nausea no vomiting, no abdominal pain, history of constipation no urgency, no frequency Skin no rash All other system reviewed and are negative [facility] Medical History Hyperlipidemia (04/21/1959) Depressive disorder (04/21/1959) Nutritional anemia (04/21/1959) Shortness of breath Hypothyroidism (04/21/1959) Anemia Chronic gastritis Heart palpitations NSTEMI (non-ST elevated myocardial infarction) Recurrent falls (12/04/11) Iron deficiency anemia (04/21/1959) Fibromyositis (04/21/1959) Eczema (04/21/1959) High risk medication use Hepatitis C antibody positive in blood Screening for osteoporosis Screening for viral disease Joint swelling Overweight (BMI 25.0-29.9) Neck pain Swelling of knee joint, right Intra-abdominal abscess Diabetes Elevated liver function tests Intestinal malabsorption following gastrectomy Obesity (BMI 30-39.9) 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 Hypertension Cholecystitis Hyperlipidemia, unspecified Essential hypertension Atherosclerotic cardiovascular disease Fibromyalgia Folliculitis Anxiety Depression History of myocardial infarction Diabetes type 1, uncontrolled Hyperparathyroidism due to vitamin D deficiency Dyslipidemia Rona's disease Hypothyroidism Family History Father No problems noted. Mother CVA (cerebral vascular accident) Sister Hypertension Brother Hypertension Liver cancer Surgical History History of bypass gastroenterostomy (11/13/17) H/O gastric bypass S/P laparoscopic cholecystectomy Status post gastric bypass for obesity History of esophagogastroduodenoscopy (EGD) H/O colonoscopy History of laparoscopic cholecystectomy History of bladder suspension procedure Status post laser cataract surgery of both eyes Hx of appendectomy Social History Household Members: None Housing: Apartment Are you a primary adult care manager to a significant other at home: No Do you presently have visiting nurse or other home services: Yes Unable to assess alcohol history related to: Unable to respond Alcohol intake: never Patient Tobacco Use Status: Never used Tobacco Smoked in Last 30 Days: No Use of substances other than those prescribed or required for medical reasons: No Advance Directives: No Advance Directives Information Provided: No Nutrition Risks: No Nutritional Risk service: No Current occupational status: disabled Current occupation: right hand dominant Meds Allergies Allergy/AdvReac Type Severity Reaction Status Date / Time lorazepam [LORAZEPAM] Allergy Severe DELIRIUM Verified 09/09/23 11:04 celecoxib [From Celebrex] Allergy Intermediate ITCHING Verified 09/09/23 11:04 tramadol [TRAMADOL] Allergy Intermediate ITCHING Verified 09/09/23 11:04 zolpidem [Ambien] Allergy Unknown unknown Verified 09/09/23 11:04 Home Medications ?Medication ?Instructions ?Recorded ?Confirmed ?Last Taken ?Type venlafaxine 150 mg 150 mg PO DAILY 01/28/20 09/09/23 Unknown History capsule,extended release 24 hr (Effexor XR) hydroxyzine HCl 10 mg tablet 10 mg PO Q8H PRN Anxiety 02/22/20 09/09/23 Unknown History clonazepam 0.5 mg tablet 1 tab PO Q8H PRN anxiety 01/02/21 09/09/23 Unknown History blood-glucose meter,continuous 01/11/22 05/12/23 Unknown History (Dexcom G6 Seamless Tube Drawer) amlodipine 10 mg tablet 10 mg PO DAILY 05/14/22 09/09/23 Unknown History prazosin 2 mg capsule 6 mg PO BEDTIME 05/14/22 09/09/23 Unknown History aripiprazole 20 mg tablet 20 mg PO DAILY 01/10/23 09/09/23 Unknown History losartan 100 mg tablet 100 mg PO DAILY 07/30/23 09/09/23 Unknown History atorvastatin 20 mg tablet 20 mg PO DAILY 08/21/23 09/09/23 Unknown History carvedilol 6.25 mg tablet 6.25 mg PO BID 08/21/23 09/09/23 Unknown History gabapentin 100 mg capsule 100 mg PO BID 08/21/23 09/09/23 Unknown History melatonin 3 mg tablet 3 mg PO BEDTIME 08/21/23 09/09/23 Unknown History etanercept 50 mg/mL (1 mL) 50 mg subcut Q7D 09/09/23 09/09/23 Unknown History subcutaneous pen injector (Enbrel SureClick) insulin aspart 2 - 14 sliding scale dose subcut 09/09/23 09/09/23 Unknown History (niacinamide)(U-100) 100 unit/mL(3 QIDACHS mL) subcutaneous pen (Fiasp FlexTouch U-100 Insulin) methocarbamol 500 mg tablet mg 09/09/23 Unknown History Physical Exam Vital Signs and Narrative: Vital Signs: Last Vital Signs Temp 97.5 F 09/09/23 11:01 Pulse 78 09/09/23 11:01 Resp 18 09/09/23 11:01 BP 173/73 H 09/09/23 11:01 Pulse Ox 98 09/09/23 11:01 O2 Del Method Room Air 09/09/23 11:01 BMI result Body Mass Index 35.9 Const: Other: General awake alert x3 in mild to moderate distress due to pain Anicteric sclera Necksupple no JVD. CVS regular rate rhythm, Respiratory lungs shallow breaths due to pain, clear to auscultation, diminished at bases , no wheeze, no rhonchi Gastrointestinal abdomen soft, non tender, bowel sounds audible, no guarding , no rigidity. Extremities no edema. Neuro non focal Skin no rash Psych appropriate affect Results Labs 09/09/23 12:13 09/09/23 12:13 Labs: Laboratory Results - last 24 hr 09/09/23 09/09/23 09/09/23 11:18 11:21 11:25 MCV MCH MCHC RDW Plt Count MPV Immature Gran % (Auto) Neut % (Auto) Lymph % (Auto) Grainger % (Auto) Eos % (Auto) Baso % (Auto) Lymph # (Auto) Grainger # (Auto) Eos # (Auto) Baso # (Auto) Abs Immat Gran (auto) Absolute Neuts (auto) Absolute Nucleated RBC Nucleated RBC % (auto) Anion Gap Estim Creat Clear Calc Estimated GFR POC Glucose 40 L* 36 L* Random Glucose Calcium Magnesium Total Bilirubin Direct Bilirubin AST ALT Alkaline Phosphatase Total Protein Albumin Urine Color Urine Appearance Urine pH Ur Specific Pacifica Urine Protein Urine Glucose (UA) Urine Ketones Urine Blood Urine Nitrite Ur Leukocyte Esterase Urine RBC Urine WBC Ur Squamous Epith Cells Urine Bacteria Hyaline Casts Influenza Type A (PCR) NEGATIVE Influenza Type B (PCR) NEGATIVE RSV RNA Qual (PCR) NEGATIVE SARS-CoV-2 RNA (RT-PCR) NEGATIVE 09/09/23 09/09/23 09/09/23 12:09 12:13 13:58 MCV 86.9 MCH 28.1 MCHC 32.3 RDW 14.3 Plt Count 309 D MPV 9.4 Immature Gran % (Auto) 1.0 H Neut % (Auto) 51.1 Lymph % (Auto) 25.9 Grainger % (Auto) 9.2 Eos % (Auto) 11.7 H Baso % (Auto) 1.1 Lymph # (Auto) 2.7 Grainger # (Auto) 1.0 Eos # (Auto) 1.2 H Baso # (Auto) 0.1 Abs Immat Gran (auto) 0.10 H Absolute Neuts (auto) 5.3 Absolute Nucleated RBC 0.000 Nucleated RBC % (auto) 0.0 Anion Gap 14 Estim Creat Clear Calc 38.7 Estimated GFR 44 POC Glucose 106 Random Glucose 100 Calcium 9.5 Magnesium 2.0 Total Bilirubin 0.2 Direct Bilirubin < 0.2 AST 16 ALT 10 Alkaline Phosphatase 151 H Total Protein 6.3 L Albumin 3.5 Urine Color Yellow Urine Appearance Cloudy Urine pH 5.5 Ur Specific Pacifica 1.010 Urine Protein Negative Urine Glucose (UA) Negative Urine Ketones Negative Urine Blood Negative Urine Nitrite Positive H Ur Leukocyte Esterase Small (1+) H Urine RBC 0-2 Urine WBC 21-50 H Ur Squamous Epith Cells 6-10 Urine Bacteria 4+ Hyaline Casts 3-5 Influenza Type A (PCR) Influenza Type B (PCR) RSV RNA Qual (PCR) SARS-CoV-2 RNA (RT-PCR) Imaging Radiologist's Impressions: Impressions Chest X-Ray 09/09/23 11:58 IMPRESSION: Multiple displaced left rib fractures. Hazy opacities along the periphery and mid to lower aspects of the left hemithorax suggest pleural-parenchymal process related to trauma. CT scan of the chest recommended for further evaluation. This study was presented today, September 09, 2023, for interpretation. Stat results provided at this time as requested by referring provider. Chest CT 09/09/23 14:42 IMPRESSION: Second through sixth left-sided rib fractures, with 2 fracture components each, meeting the criteria for flail chest. Associated left pleural thickening adjacent to displaced and inwardly depressed third and fourth lateral rib fractures. Bilateral small effusions, left greater than right. Possible 4 mm right upper lobe pulmonary nodule, study limited by respiratory motion. Per Fleischner criteria, in high risk patients, optional CT at 12 months may be obtained. If stable at 12 months, no further follow-up recommended. In low-risk patients, no routine follow-up necessarily required. Assessment and Plan (1) Multiple rib fractures involving four or more ribs: Status: Acute (2) Closed flail chest: Qualifiers: Encounter type: initial encounter Qualified Code(s): S22.5XXA - Flail chest, initial encounter for closed fracture Status: Acute Plan 73-year-old female with past medical history of diabetes mellitus type 2 on insulin, hypertension, hyperlipidemia, GERD, rheumatoid arthritis, depression presented to [facility] due to left-sided chest pain after she sustained a fall on August 26 and [place] while visiting family patient was discharged home on analgesics and muscles relaxers and was recommended orthopedic follow-up however patient returned yesterday to [facility] and came to ED today due to intractable left-sided pain, limiting ambulation, lack of sleep coughing and inability to take deep breaths. Intractable left-sided chest pain due to 2nd through 6th left-sided rib fractures with two fracture components meeting criteria for flail chest/bilateral pleural effusion Place on IV Dilaudid for severe pain, oxycodone for [id number] pain DuoNeb updraft q.i.d. and as needed Encourage incentive spirometry, cough syrup, repeat imaging studies for follow-up on pleural effusion Thoracic surgery consultation Will try to obtain records from [place] Diabetes mellitus type 2 on insulin noted to have hypoglycemia on arrival, initial blood sugar 40 then dropped to 36 and now around 100, will hold insulin will place on insulin sliding scale and diabetic diet follow blood sugar Chronic Anemia stable H/H follow CBC CAD no chest pain, continue Coreg 6.25 b.i.d., hold Plavix and resume after thoracic surgery consultation HTN elevated blood pressures likely due to pain , will resume home medications, patient on losartan, Coreg amlodipine and prazosin Hyperlipidemia on Lipitor History of depression and anxiety continue home meds. DVT prophylaxis on compression boots In my clinical judgment patient need to night inpatient hospitalization for management of intractable left-sided chest pain due to 2nd to 6th rib fractures Quality Stroke Does the patient have a stroke diagnosis?: No VTE Prior VTE?: No VTE Risk Level:: Medical - moderate - high VTE Device Contraindication: N/A - Device Ordered VTE Drug Contraindication: Treatment Not Indicated
--- NOTE | 2023-09-09 18:57 | PHA.MEDREC ---
Pharmacy Consult ? Medication Reconciliation Pharmacy has completed the medication reconciliation. Patient was not able to recall her medications. Courtroom Deputy Or Calendar Clerk used. Patient gave me a list. List was outdated by more than a year. Used the list to the best of my ability along with pharmacy claims.
[2023-09-09 19:35] LABS: Glucose, Whole Blood 164 mg/dL (60-115)
[2023-09-09 19:46] VITALS: BP 211/97; PULSE 89; RESP 20; TEMP 36.7; O2SAT 96
[2023-09-09] MEDS: Albuterol/Iprat 2.5/0.5MG 3 ML AMPUL.NEB INHALE (20:04)
[2023-09-09 20:08] VITALS: PULSE 84; RESP 16; O2SAT 96
[2023-09-09] MEDS: Docusate Sodium 100 MG CAPSULE 200 MG PO (20:17)
[2023-09-09] MEDS: carvediloL 6.25 MG TABLET PO (20:17)
[2023-09-09] MEDS: guaiFENesin DM 200/20/10 ML 10 ML SYRUP PO (20:18)
[2023-09-09] MEDS: Prazosin HCL 1 MG CAPSULE 6 MG PO (20:18)
[2023-09-09 20:21] VITALS: BP 188/80; PULSE 74; RESP 16; TEMP 36.3; O2SAT 97
[2023-09-09 21:35] LABS: Glucose, Whole Blood 211 mg/dL (60-115)
[2023-09-09] MEDS: Insulin Lispro 100 UNIT/ML 3 ML VIAL SUBCUT (21:39)
[2023-09-09 23:19] LABS: Glucose, Whole Blood 154 mg/dL (60-115)
[2023-09-09 23:48] VITALS: BP 160/67; PULSE 83; RESP 15; TEMP 36.9; O2SAT 93
[2023-09-10] VITALS (12 sets, daily range): BP systolic 98–190; BP diastolic 53–85; PULSE 73–97; RESP 12–20; TEMP 36.2–36.7; O2SAT 91–97
--- NOTE | 2023-09-10 04:30 | PC.NURSE ---
pt out of bed to bathroom with assist and walker, pt a&o, pt back in bed awaiting for bed assignment.
[2023-09-10] MEDS: HYDROmorphone HCl 1 MG/ML SYRINGE IVPUSH ×3 (04:48→22:32)
--- NOTE | 2023-09-10 04:50 | PC.NURSE ---
medicated pt per mar.
[2023-09-10] MEDS: Glucose Gel 15 GM GEL..GRAM. PO (07:34)
--- NOTE | 2023-09-10 07:56 | PC.NURSE ---
patient resting quietly in bed, VSS, patient glucose noted to be 61, patient sat up, given breakfast and orange juice. hypoglycemia protocal followed patient ot 1 tube of glucose gel. glucose checked again now 128. patient is alert and oriented x3
[2023-09-10] MEDS: Albuterol/Iprat 2.5/0.5MG 3 ML AMPUL.NEB INHALE ×2 (08:14→14:52)
[2023-09-10 08:28] LABS: Glucose, Whole Blood 128 mg/dL (60-115)
[2023-09-10 08:28] LABS: Glucose, Whole Blood 61 mg/dL (60-115)
[2023-09-10] MEDS: Folic Acid 1 MG TABLET PO (08:35)
[2023-09-10] MEDS: Venlafaxine HCl ER 150 MG CAP.ER.24H PO (08:35)
[2023-09-10] MEDS: polyethylene glycoL 3350 17 GM POWD.PACK PO (08:35)
[2023-09-10] MEDS: Losartan Potassium 50 MG TABLET 100 MG PO (08:36)
[2023-09-10] MEDS: Cholecalciferol (Vitamin D3) 25 MCG TABLET 50 MCG PO (08:36)
[2023-09-10] MEDS: guaiFENesin DM 200/20/10 ML 10 ML SYRUP PO ×4 (08:36→22:30)
[2023-09-10] MEDS: Docusate Sodium 100 MG CAPSULE PO ×2 (08:36→22:32)
[2023-09-10] MEDS: ARIPiprazole 20 MG TABLET PO (08:36)
[2023-09-10] MEDS: Atorvastatin Calcium 20 MG TABLET PO (08:36)
[2023-09-10] MEDS: Gabapentin 100 MG CAPSULE PO ×2 (08:36→22:33)
[2023-09-10] MEDS: Levothyroxine Sodium 112 MCG TABLET PO (08:36)
[2023-09-10] MEDS: carvediloL 6.25 MG TABLET PO ×2 (08:43→22:33)
--- NOTE | 2023-09-10 08:57 | MHC.CM.PN ---
Patient is unavailable; CM spoke with first Contact/INTERIOR DESIGN PROFESSIONAL/Gabriela @ [phone] and addressed IMM with her(original will be mailed certified letter to Gabriela and a copy will be placed on the chart). Patient lives alone in an apartment and she uses a walker to assist with mobility. Patient receives [employer] INTERIOR DESIGN PROFESSIONAL hours/week and home/resume said services is the goal. CM has initiated and will follow for dc planning. PCP is Dr. Darnell and Son/Prabhjot is the HCP.
--- NOTE | 2023-09-10 10:47 | HO.THORCON_ITS ---
Documented by User: Lashawn Gallegos PA-C 09/10/23 11:04 History of Present Illness Consult details Consult date: 09/10/23 Narrative: 73-year-old Pashto speaking female with history of diabetes, Rona disease, osteoarthritis and rheumatoid arthritis, HTN, GERD, iron deficiency anemia, history of recurrent falls who presented to the ED for evaluation of cough and ongoing left sided rib pain. She reports she was visiting family in [place] and fell out of a high bed on 08/27/23. She reports they did imaging including xrays and CT can and sustained a left clavicle fracture and 1 rib fracture per her report. She was discharged with Robaxin and lidocaine patches along with a sling. She returned from [place] two days ago. She states she recently ran out of her medication for pain and has been coughing more with worsening pain in the ribs. She denies fever, difficulty breathing, abdominal pain, further falls. She has not on anticoagulation. Work up in the ED included CBC, BMP which was significant for anemia, near her baseline. CXR and then chest CT was performed which showed second through sixth left-sided rib fractures, with 2 fracture components each with left pleural thickening adjacent to displaced and inwardly depressed third and fourth lateral rib fractures with bilateral small effusions, left greater than right. Incidental 4 mm right upper lobe pulmonary nodule. Review of Systems 2 Constitutional: Constitutional: Denies chills and Denies fever(s) ENT: Denies dizziness Cardiovascular: Cardiovascular: Denies chest pain, Denies palpitations and Denies dyspnea Respiratory: Respiratory: Reports cough and Denies dyspnea Gastrointestinal: Gastrointestinal: Denies abdominal pain Integumentary/Breasts: Skin/Breast: Denies rash and Denies jaundice Neurologic: Denies dizziness Endocrine: Endocrine: Denies palpitations [facility] Past Medical History Medical History Hyperlipidemia (04/21/1959) Depressive disorder (04/21/1959) Nutritional anemia (04/21/1959) Shortness of breath Hypothyroidism (04/21/1959) Anemia Chronic gastritis Heart palpitations NSTEMI (non-ST elevated myocardial infarction) Recurrent falls (12/04/11) Iron deficiency anemia (04/21/1959) Fibromyositis (04/21/1959) Eczema (04/21/1959) High risk medication use Hepatitis C antibody positive in blood Screening for osteoporosis Screening for viral disease Joint swelling Overweight (BMI 25.0-29.9) Neck pain Swelling of knee joint, right Intra-abdominal abscess Diabetes Elevated liver function tests Intestinal malabsorption following gastrectomy Obesity (BMI 30-39.9) 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 Hypertension Cholecystitis Hyperlipidemia, unspecified Essential hypertension Atherosclerotic cardiovascular disease Fibromyalgia Folliculitis Anxiety Depression History of myocardial infarction Diabetes type 1, uncontrolled Hyperparathyroidism due to vitamin D deficiency Dyslipidemia Rona's disease Hypothyroidism Family History Family History Father No problems noted. Mother CVA (cerebral vascular accident) Sister Hypertension Brother Hypertension Liver cancer Surgical History Surgical History History of bypass gastroenterostomy (11/13/17) H/O gastric bypass S/P laparoscopic cholecystectomy Status post gastric bypass for obesity History of esophagogastroduodenoscopy (EGD) H/O colonoscopy History of laparoscopic cholecystectomy History of bladder suspension procedure Status post laser cataract surgery of both eyes Hx of appendectomy Social History Social History Household Members: None Housing: Apartment Are you a primary spiritual care coordinator to a significant other at home: No Do you presently have visiting nurse or other home services: Yes Unable to assess alcohol history related to: Unable to respond Alcohol intake: never Patient Tobacco Use Status: Never used Tobacco Smoked in Last 30 Days: No Use of substances other than those prescribed or required for medical reasons: No Advance Directives: No Advance Directives Information Provided: No Nutrition Risks: No Nutritional Risk service: No Current occupational status: disabled Current occupation: right hand dominant Meds Allergies Allergy/AdvReac Type Severity Reaction Status Date / Time lorazepam [LORAZEPAM] Allergy Severe DELIRIUM Verified 09/09/23 11:04 celecoxib [From Celebrex] Allergy Intermediate ITCHING Verified 09/09/23 11:04 tramadol [TRAMADOL] Allergy Intermediate ITCHING Verified 09/09/23 11:04 zolpidem [Ambien] Allergy Unknown unknown Verified 09/09/23 11:04 Active Medications: Current Medications Acetaminophen (Acetaminophen 325 Mg Tablet) 650 mg PO Q6H PRN PRN Reason: Pain, Mild (Pain Scale 1-3) Al Hydroxide/Mg Hydroxide (Magnesium Hydrox/Alum Hydrox 30 Ml Oral.Susp) 30 ml PO Q4H PRN PRN Reason: Heartburn/Nausea Albuterol Sulfate (Albuterol Sulfate 90 Mcg 8 Gm Inhaler) 2 puff INHALE Q4H PRN PRN Reason: shortness of breath or wheezing Albuterol/Ipratropium (Albuterol/Iprat 2.5/0.5mg 3 Ml Ampul.Neb) 3 ml INHALE RQ6H WHILE AWAKE [facility] Last Admin: 09/10/23 08:14 Dose: 3 ml Aripiprazole (Aripiprazole 20 Mg Tablet) 20 mg PO DAILY [facility] Last Admin: 09/10/23 08:36 Dose: 20 mg Atorvastatin Calcium (Atorvastatin Calcium 20 Mg Tablet) 20 mg PO DAILY [facility] Last Admin: 09/10/23 08:36 Dose: 20 mg Bisacodyl (Bisacodyl 5 Mg Tablet.Dr) 10 mg PO BEDTIME [facility] Carvedilol (Carvedilol 6.25 Mg Tablet) 6.25 mg PO BID [facility]; Protocol Last Admin: 09/10/23 08:43 Dose: 6.25 mg Clonazepam (Clonazepam 0.5 Mg Tablet) 0.5 mg PO TID PRN PRN Reason: anxiety/restlessness Docusate Sodium (Docusate Sodium 100 Mg Capsule) 100 mg PO BID [facility] Last Admin: 09/10/23 08:36 Dose: 100 mg Folic Acid (Folic Acid 1 Mg Tablet) 1 mg PO DAILY [facility] Last Admin: 09/10/23 08:35 Dose: 1 mg Gabapentin (Gabapentin 100 Mg Capsule) 100 mg PO BID [facility] Last Admin: 09/10/23 08:36 Dose: 100 mg Glucose (Glucose Gel 15 Gm Gel..Gram.) 15 gm PO Q15M PRN; Protocol PRN Reason: per Hypoglycemia Standing Ord. Last Admin: 09/10/23 07:34 Dose: 15 gm Guaifenesin/Codeine Phosphate (Guaifen/Codeine Sf 200/20/10ml 10 Ml Liquid) 10 ml PO Q6H PRN PRN Reason: cough Guaifenesin/Dextromethorphan (Guaifenesin Dm 200/20/10 Ml 10 Ml Syrup) 10 ml PO QID [facility] Last Admin: 09/10/23 08:36 Dose: 10 ml Hydromorphone HCl (Hydromorphone Hcl 1 Mg/Ml Syringe) 1 mg IVPUSH Q4H PRN; Protocol PRN Reason: Pain, Severe (Pain Scale 7-10) Last Admin: 09/10/23 04:48 Dose: 1 mg Hydroxyzine HCl (Hydroxyzine Hcl 10 Mg Tablet) 10 mg PO Q8H PRN PRN Reason: Anxiety Dextrose (D10) 250 mls @ 750 mls/hr IV Q15M PRN; Protocol PRN Reason: per Hypoglycemia Standing Ord. Insulin Human Lispro (Insulin Lispro 100 Unit/Ml 3 Ml Vial) 0 unit SUBCUT QIDACHS [facility]; Protocol Last Admin: 09/10/23 07:31 Dose: Not Given Levothyroxine Sodium (Levothyroxine Sodium 112 Mcg Tablet) 112 mcg PO DAILY@0600 [facility] Last Admin: 09/10/23 08:36 Dose: 112 mcg Losartan Potassium (Losartan Potassium 50 Mg Tablet) 100 mg PO DAILY [facility]; Protocol Last Admin: 09/10/23 08:36 Dose: 100 mg Magnesium Hydroxide (Milk Of Magnesia 30 Ml Oral.Susp) 30 ml PO DAILY PRN PRN Reason: Constipation Melatonin (Melatonin 3 Mg Tablet) 3 mg PO BEDTIME PRN PRN Reason: insomnia Omeprazole (Omeprazole 40 Mg Capsule.Dr) 40 mg PO DAILY@0630 [facility] Ondansetron HCl (Ondansetron Hcl 4 Mg/2 Ml Vial) 4 mg IVPUSH Q8H PRN PRN Reason: Nausea and Vomiting Oxycodone HCl (Oxycodone Hcl Immed Release 5 Mg Tablet) 5 mg PO Q4H PRN PRN Reason: Pain, Moderate(Pain Scale 4-6) Polyethylene Glycol (Polyethylene Glycol 3350 17 Gm Powd.Pack) 17 gm PO DAILY [facility] Last Admin: 09/10/23 08:35 Dose: 17 gm Prazosin HCl (Prazosin Hcl 1 Mg Capsule) 6 mg PO BEDTIME [facility]; Protocol Last Admin: 09/09/23 20:18 Dose: 6 mg Sodium Chloride (0.9 % Sodium Chloride Flush 3 Ml Syringe) [facility] Last Admin: 09/10/23 07:36 Dose: Not Given Venlafaxine HCl (Venlafaxine Hcl Er 150 Mg Cap.Er.24h) 150 mg PO DAILY [facility] Last Admin: 09/10/23 08:35 Dose: 150 mg Vitamin D (Cholecalciferol (Vitamin D3) 25 Mcg Tablet) 50 mcg PO DAILY@0900 [facility] Last Admin: 09/10/23 08:36 Dose: 50 mcg Home Medications ?Medication ?Instructions ?Recorded ?Confirmed ?Last Taken ?Type venlafaxine 150 mg 150 mg PO DAILY 01/28/20 09/09/23 Unknown History capsule,extended release 24 hr (Effexor XR) hydroxyzine HCl 10 mg tablet 10 mg PO Q8H PRN Anxiety 02/22/20 09/09/23 Unknown History clonazepam 0.5 mg tablet 1 tab PO Q8H PRN anxiety 01/02/21 09/09/23 Unknown History blood-glucose meter,continuous 01/11/22 05/12/23 Unknown History (Dexcom G6 Otolaryngologist) amlodipine 10 mg tablet 10 mg PO DAILY 05/14/22 09/09/23 Unknown History prazosin 2 mg capsule 6 mg PO BEDTIME 05/14/22 09/09/23 Unknown History aripiprazole 20 mg tablet 20 mg PO DAILY 01/10/23 09/09/23 Unknown History losartan 100 mg tablet 100 mg PO DAILY 07/30/23 09/09/23 Unknown History atorvastatin 20 mg tablet 20 mg PO DAILY 08/21/23 09/09/23 Unknown History carvedilol 6.25 mg tablet 6.25 mg PO BID 08/21/23 09/09/23 Unknown History gabapentin 100 mg capsule 100 mg PO BID 08/21/23 09/09/23 Unknown History melatonin 3 mg tablet 3 mg PO BEDTIME 08/21/23 09/09/23 Unknown History etanercept 50 mg/mL (1 mL) 50 mg subcut Q7D 09/09/23 09/09/23 Unknown History subcutaneous pen injector (Enbrel SureClick) insulin aspart 2 - 14 sliding scale dose subcut 09/09/23 09/09/23 Unknown History (niacinamide)(U-100) 100 unit/mL(3 QIDACHS mL) subcutaneous pen (Fiasp FlexTouch U-100 Insulin) methocarbamol 500 mg tablet mg 09/09/23 Unknown History Physical Exam 2 Vital Signs: Vital Signs: Last Vital Signs Temp 97.7 F 09/10/23 07:24 Pulse 97 09/10/23 08:18 Resp 15 09/10/23 08:18 BP 116/53 L 09/10/23 07:24 Pulse Ox 92 09/10/23 07:24 O2 Del Method Room Air 09/10/23 07:24 BMI result Body Mass Index 35.9 Const: General: comfortable, no acute distress and alert O rientation/consciousness: patient oriented x3 Resp: Other: no ecchymosis or deformity noted of left chest Effort & Inspection: normal respiratory effort, able to speak in complete sentences, no paradoxical thoraco-abdom movements, no respiratory distress, not tachypneic and no use of accessory muscles Cardio: Rate: regular rate Skin: General skin exam: no rashes or lesions noted Neuro: General: patient oriented x3 and moves all extremities Results Labs 09/09/23 12:13 09/09/23 12:13 Labs: Abnormal lab results 09/09/23 09/09/23 09/09/23 Range/Units 11:21 11:25 12:13 RBC 3.74 L (4.20-5.50) X10*6/uL Hgb 10.5 L (12.0-16.0) g/dl Hct 32.5 L (37.0-47.0) % Immature Gran % (Auto) 1.0 H (0.0-0.4) % Eos % (Auto) 11.7 H (0-4) % Eos # (Auto) 1.2 H (0.0-0.4) X10*3/uL Abs Immat Gran (auto) 0.10 H (0.00-0.03) X10*3/uL BUN 22 H (9-16) mg/dL POC Glucose 40 L* 36 L* (60-115) mg/dL Alkaline Phosphatase 151 H (39-117) U/L Total Protein 6.3 L (6.5-8.0) g/dL Urine Nitrite (Negative) Ur Leukocyte Esterase (Negative) Urine WBC (0-5) /HPF 09/09/23 09/09/23 09/09/23 Range/Units 13:58 19:31 21:29 RBC (4.20-5.50) X10*6/uL Hgb (12.0-16.0) g/dl Hct (37.0-47.0) % Immature Gran % (Auto) (0.0-0.4) % Eos % (Auto) (0-4) % Eos # (Auto) (0.0-0.4) X10*3/uL Abs Immat Gran (auto) (0.00-0.03) X10*3/uL BUN (9-16) mg/dL POC Glucose 164 H 211 H (60-115) mg/dL Alkaline Phosphatase (39-117) U/L Total Protein (6.5-8.0) g/dL Urine Nitrite Positive H (Negative) Ur Leukocyte Esterase Small (1+) H (Negative) Urine WBC 21-50 H (0-5) /HPF 09/09/23 09/10/23 Range/Units 23:15 07:55 RBC (4.20-5.50) X10*6/uL Hgb (12.0-16.0) g/dl Hct (37.0-47.0) % Immature Gran % (Auto) (0.0-0.4) % Eos % (Auto) (0-4) % Eos # (Auto) (0.0-0.4) X10*3/uL Abs Immat Gran (auto) (0.00-0.03) X10*3/uL BUN (9-16) mg/dL POC Glucose 154 H 128 H (60-115) mg/dL Alkaline Phosphatase (39-117) U/L Total Protein (6.5-8.0) g/dL Urine Nitrite (Negative) Ur Leukocyte Esterase (Negative) Urine WBC (0-5) /HPF Short CBC 09/09/23 Range/Units 12:13 WBC 10.3 (4.8-10.8) X10*3/uL Hgb 10.5 L (12.0-16.0) g/dl Hct 32.5 L (37.0-47.0) % Plt Count 309 D (160-400) X10*3/uL BMP 09/09/23 12:13 Sodium 140 Potassium 4.8 Chloride 108 Carbon Dioxide 23 BUN 22 H Creatinine 1.19 Calcium 9.5 Liver Function 09/09/23 Range/Units 12:13 Total Bilirubin 0.2 (0.0-1.0) mg/dL Direct Bilirubin < 0.2 (0.0-0.5) mg/dL AST 16 (5-31) U/L ALT 10 (0-31) U/L Alkaline Phosphatase 151 H (39-117) U/L Albumin 3.5 (3.5-5.0) g/dL Urine 09/09/23 Range/Units 13:58 Urine Color Yellow Urine Appearance Cloudy Urine pH 5.5 (5.0-9.0) Ur Specific Rufus 1.010 (1.005-1.025) Urine Protein Negative (Neg-Trace) mg/dL Urine Glucose (UA) Negative (Negative) mg/dL All other labs normal. Imaging CT scan - chest: report reviewed and image reviewed Assessment and Plan (1) Multiple rib fractures involving four or more ribs: Status: Acute (2) Clavicular fracture: Status: Acute (3) Closed flail chest: Qualifiers: Encounter type: initial encounter Qualified Code(s): S22.5XXA - Flail chest, initial encounter for closed fracture Status: Acute Plan 73-year-old Pashto speaking female with history of diabetes, Rona disease, osteoarthritis and rheumatoid arthritis, HTN, GERD, iron deficiency anemia, history of recurrent falls admitted following a fall 2 weeks ago with left clavicular and left rib fractures with small bilateral pleural effusions on imaging. The patient has been admitted to medicine for further treatment. Despite the numerous rib fractures with flail chest, the injury was sustained over two weeks ago and the patient is overall stable without any symptoms of shortness of breath and no respiratory distress and therefore would recommend nonoperative management with pain control, pulmonary toilet and incentive spirometry. Will discuss with anesthesia regarding possible epidural vs paraspinal block if the pain is difficult to manage with PRN analgesics. Can observe the pleural effusions for now as well as she is asymptomatic and they are small. Will continue to follow. Procedures Date of Service Date of Service: 09/10/23 Documented by User: Louis Haas MD 09/10/23 12:58 History of Present Illness Consult details Consult date: 09/09/23 [facility] Past Medical History Medical History Hyperlipidemia (04/21/1959) Depressive disorder (04/21/1959) Nutritional anemia (04/21/1959) Shortness of breath Hypothyroidism (04/21/1959) Anemia Chronic gastritis Heart palpitations NSTEMI (non-ST elevated myocardial infarction) Recurrent falls (12/04/11) Iron deficiency anemia (04/21/1959) Fibromyositis (04/21/1959) Eczema (04/21/1959) High risk medication use Hepatitis C antibody positive in blood Screening for osteoporosis Screening for viral disease Joint swelling Overweight (BMI 25.0-29.9) Neck pain Swelling of knee joint, right Intra-abdominal abscess Diabetes Elevated liver function tests Intestinal malabsorption following gastrectomy Obesity (BMI 30-39.9) 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 Hypertension Cholecystitis Hyperlipidemia, unspecified Essential hypertension Atherosclerotic cardiovascular disease Fibromyalgia Folliculitis Anxiety Depression History of myocardial infarction Diabetes type 1, uncontrolled Hyperparathyroidism due to vitamin D deficiency Dyslipidemia Rona's disease Hypothyroidism Family History Family History Father No problems noted. Mother CVA (cerebral vascular accident) Sister Hypertension Brother Hypertension Liver cancer Surgical History Surgical History History of bypass gastroenterostomy (11/13/17) H/O gastric bypass S/P laparoscopic cholecystectomy Status post gastric bypass for obesity History of esophagogastroduodenoscopy (EGD) H/O colonoscopy History of laparoscopic cholecystectomy History of bladder suspension procedure Status post laser cataract surgery of both eyes Hx of appendectomy Social History Social History Household Members: None Housing: Apartment Are you a primary spiritual care coordinator to a significant other at home: No Do you presently have visiting nurse or other home services: Yes Unable to assess alcohol history related to: Unable to respond Alcohol intake: never Patient Tobacco Use Status: Never used Tobacco Smoked in Last 30 Days: No Use of substances other than those prescribed or required for medical reasons: No Advance Directives: No Advance Directives Information Provided: No Nutrition Risks: No Nutritional Risk service: No Current occupational status: disabled Current occupation: right hand dominant Meds Allergies Allergy/AdvReac Type Severity Reaction Status Date / Time lorazepam [LORAZEPAM] Allergy Severe DELIRIUM Verified 09/09/23 11:04 celecoxib [From Celebrex] Allergy Intermediate ITCHING Verified 09/09/23 11:04 tramadol [TRAMADOL] Allergy Intermediate ITCHING Verified 09/09/23 11:04 zolpidem [Ambien] Allergy Unknown unknown Verified 09/09/23 11:04 Home Medications ?Medication ?Instructions ?Recorded ?Confirmed ?Last Taken ?Type venlafaxine 150 mg 150 mg PO DAILY 01/28/20 09/09/23 Unknown History capsule,extended release 24 hr (Effexor XR) hydroxyzine HCl 10 mg tablet 10 mg PO Q8H PRN Anxiety 02/22/20 09/09/23 Unknown History clonazepam 0.5 mg tablet 1 tab PO Q8H PRN anxiety 01/02/21 09/09/23 Unknown History blood-glucose meter,continuous 01/11/22 05/12/23 Unknown History (Dexcom G6 Otolaryngologist) amlodipine 10 mg tablet 10 mg PO DAILY 05/14/22 09/09/23 Unknown History prazosin 2 mg capsule 6 mg PO BEDTIME 05/14/22 09/09/23 Unknown History aripiprazole 20 mg tablet 20 mg PO DAILY 01/10/23 09/09/23 Unknown History losartan 100 mg tablet 100 mg PO DAILY 07/30/23 09/09/23 Unknown History atorvastatin 20 mg tablet 20 mg PO DAILY 08/21/23 09/09/23 Unknown History carvedilol 6.25 mg tablet 6.25 mg PO BID 08/21/23 09/09/23 Unknown History gabapentin 100 mg capsule 100 mg PO BID 08/21/23 09/09/23 Unknown History melatonin 3 mg tablet 3 mg PO BEDTIME 08/21/23 09/09/23 Unknown History etanercept 50 mg/mL (1 mL) 50 mg subcut Q7D 09/09/23 09/09/23 Unknown History subcutaneous pen injector (Enbrel SureClick) insulin aspart 2 - 14 sliding scale dose subcut 09/09/23 09/09/23 Unknown History (niacinamide)(U-100) 100 unit/mL(3 QIDACHS mL) subcutaneous pen (Fiasp FlexTouch U-100 Insulin) methocarbamol 500 mg tablet mg 09/09/23 Unknown History Results Labs 09/09/23 12:13 09/09/23 12:13 Assessment and Plan (1) Multiple rib fractures involving four or more ribs: Status: Acute (2) Clavicular fracture: Status: Acute (3) Closed flail chest: Qualifiers: Encounter type: initial encounter Qualified Code(s): S22.5XXA - Flail chest, initial encounter for closed fracture Status: Acute Procedures Date of Service Date of Service: 09/10/23
[2023-09-10 11:22] LABS: Glucose, Whole Blood 166 mg/dL (60-115)
--- NOTE | 2023-09-10 13:04 | PC.NURSE ---
patient given incentive spirometer, educated on use, patient return demonstration on use.
[2023-09-10] MEDS: Insulin Lispro 100 UNIT/ML 3 ML VIAL SUBCUT ×3 (13:40→22:31)
--- NOTE | 2023-09-10 14:54 | P.PNIM_ITS ---
Subjective Subjective Date of Service: 09/10/23 Interval History: Feel pain is a little better, but still severe with any movement and breathing, no fever, no chills, no nausea, no vomiting, no abdominal pain, mild intermittent dizziness, complaining of constipation. Review of Systems All other system reviewed Physical Exam 2 Vital Signs: Vital Signs: Last Vital Signs Temp 97.1 F 09/10/23 11:21 Pulse 84 09/10/23 14:53 Resp 18 09/10/23 14:53 BP 116/53 L 09/10/23 07:24 Pulse Ox 92 09/10/23 11:21 O2 Del Method Room Air 09/10/23 11:21 BMI result Body Mass Index 35.9 Const: Other: General awake alert x3 ,in mild distress due to pain Anicteric sclera Necksupple no JVD. CVS regular rate rhythm, Respiratory lungs shallow breaths due to pain, diminished left side and both bases,no wheeze, no rhonchi, left arm sling in place Gastrointestinal abdomen soft, non tender, bowel sounds audible, no guarding , no rigidity. Extremities no edema. Neuro non focal Skin no rash Psych appropriate affect Objective Data Active Medications Acetaminophen (Acetaminophen 325 Mg Tablet) 650 mg PO Q6H PRN PRN Reason: Pain, Mild (Pain Scale 1-3) Al Hydroxide/Mg Hydroxide (Magnesium Hydrox/Alum Hydrox 30 Ml Oral.Susp) 30 ml PO Q4H PRN PRN Reason: Heartburn/Nausea Albuterol Sulfate (Albuterol Sulfate 90 Mcg 8 Gm Inhaler) 2 puff INHALE Q4H PRN PRN Reason: shortness of breath or wheezing Albuterol/Ipratropium (Albuterol/Iprat 2.5/0.5mg 3 Ml Ampul.Neb) 3 ml INHALE RQ6H WHILE AWAKE [facility] Last Admin: 09/10/23 14:52 Dose: 3 ml Documented By: CEE Aripiprazole (Aripiprazole 20 Mg Tablet) 20 mg PO DAILY [facility] Last Admin: 09/10/23 08:36 Dose: 20 mg Documented By: ANABELA Atorvastatin Calcium (Atorvastatin Calcium 20 Mg Tablet) 20 mg PO DAILY [facility] Last Admin: 09/10/23 08:36 Dose: 20 mg Documented By: ANABELA Bisacodyl (Bisacodyl 5 Mg Tablet.) 10 mg PO BEDTIME [facility] Carvedilol (Carvedilol 6.25 Mg Tablet) 6.25 mg PO BID [facility]; Protocol Last Admin: 09/10/23 08:43 Dose: 6.25 mg Documented By: ANABELA Clonazepam (Clonazepam 0.5 Mg Tablet) 0.5 mg PO TID PRN PRN Reason: anxiety/restlessness Docusate Sodium (Docusate Sodium 100 Mg Capsule) 100 mg PO BID [facility] Last Admin: 09/10/23 08:36 Dose: 100 mg Documented By: ANABELA Folic Acid (Folic Acid 1 Mg Tablet) 1 mg PO DAILY [facility] Last Admin: 09/10/23 08:35 Dose: 1 mg Documented By: ANABELA Gabapentin (Gabapentin 100 Mg Capsule) 100 mg PO BID [facility] Last Admin: 09/10/23 08:36 Dose: 100 mg Documented By: ANABELA Glucose (Glucose Gel 15 Gm Gel..Gram.) 15 gm PO Q15M PRN; Protocol PRN Reason: per Hypoglycemia Standing Ord. Last Admin: 09/10/23 07:34 Dose: 15 gm Documented By: ANABELA Guaifenesin/Codeine Phosphate (Guaifen/Codeine Sf 200/20/10ml 10 Ml Liquid) 10 ml PO Q6H PRN PRN Reason: cough Guaifenesin/Dextromethorphan (Guaifenesin Dm 200/20/10 Ml 10 Ml Syrup) 10 ml PO QID [facility] Last Admin: 09/10/23 13:40 Dose: 10 ml Documented By: ANABELA Hydromorphone HCl (Hydromorphone Hcl 1 Mg/Ml Syringe) 1 mg IVPUSH Q4H PRN; Protocol PRN Reason: Pain, Severe (Pain Scale 7-10) Last Admin: 09/10/23 11:23 Dose: 1 mg Documented By: ANABELA Hydroxyzine HCl (Hydroxyzine Hcl 10 Mg Tablet) 10 mg PO Q8H PRN PRN Reason: Anxiety Dextrose (D10) 250 mls @ 750 mls/hr IV Q15M PRN; Protocol PRN Reason: per Hypoglycemia Standing Ord. Insulin Human Lispro (Insulin Lispro 100 Unit/Ml 3 Ml Vial) 0 unit SUBCUT QIDACHS [facility]; Protocol Last Admin: 09/10/23 13:40 Dose: 2 unit Documented By: ANABELA Levothyroxine Sodium (Levothyroxine Sodium 112 Mcg Tablet) 112 mcg PO DAILY@0600 [facility] Last Admin: 09/10/23 08:36 Dose: 112 mcg Documented By: ANABELA Losartan Potassium (Losartan Potassium 50 Mg Tablet) 100 mg PO DAILY [facility]; Protocol Last Admin: 09/10/23 08:36 Dose: 100 mg Documented By: ANABELA Magnesium Hydroxide (Milk Of Magnesia 30 Ml Oral.Susp) 30 ml PO DAILY PRN PRN Reason: Constipation Melatonin (Melatonin 3 Mg Tablet) 3 mg PO BEDTIME PRN PRN Reason: insomnia Omeprazole (Omeprazole 40 Mg Capsule.Dr) 40 mg PO DAILY@0630 [facility] Ondansetron HCl (Ondansetron Hcl 4 Mg/2 Ml Vial) 4 mg IVPUSH Q8H PRN PRN Reason: Nausea and Vomiting Oxycodone HCl (Oxycodone Hcl Immed Release 5 Mg Tablet) 5 mg PO Q4H PRN PRN Reason: Pain, Moderate(Pain Scale 4-6) Polyethylene Glycol (Polyethylene Glycol 3350 17 Gm Powd.Pack) 17 gm PO DAILY [facility] Last Admin: 09/10/23 08:35 Dose: 17 gm Documented By: ANABELA Prazosin HCl (Prazosin Hcl 1 Mg Capsule) 6 mg PO BEDTIME [facility]; Protocol Last Admin: 09/09/23 20:18 Dose: 6 mg Documented By: DAPHNIE Sodium Chloride (0.9 % Sodium Chloride Flush 3 Ml Syringe) 3 ml IVFLUSH QSHIFT [facility] Last Admin: 09/10/23 07:36 Dose: Not Given Documented By: ANABELA Non-Admin Reason: See Note Venlafaxine HCl (Venlafaxine Hcl Er 150 Mg Cap.Er.24h) 150 mg PO DAILY [facility] Last Admin: 09/10/23 08:35 Dose: 150 mg Documented By: ANABELA Vitamin D (Cholecalciferol (Vitamin D3) 25 Mcg Tablet) 50 mcg PO DAILY@0900 [facility] Last Admin: 09/10/23 08:36 Dose: 50 mcg Documented By: ANABELA Labs 09/09/23 12:13 09/09/23 12:13 Labs: Laboratory Results - last 24 hr 09/09/23 09/09/23 09/09/23 19:31 21:29 23:15 POC Glucose 164 H 211 H 154 H 09/10/23 09/10/23 09/10/23 07:29 07:55 11:17 POC Glucose 61 128 H 166 H Microbiology Microbiology Results: Microbiology 09/09/23 Unknown Urine Culture - Preliminary Urine clean catch - Urine britt top Gram negative marycruz Assessment and Plan (1) Multiple rib fractures involving four or more ribs: Status: Acute Plan 73-year-old female with past medical history of diabetes mellitus type 2 on insulin, hypertension, hyperlipidemia, GERD, rheumatoid arthritis, depression presented to [facility] due to left-sided chest pain after she sustained a fall on August 26 and [place] while visiting family patient was discharged home on analgesics and muscles relaxers and was recommended orthopedic follow-up however patient returned yesterday to [place] and came to ED today due to intractable left-sided pain, limiting ambulation, lack of sleep coughing and inability to take deep breaths. Intractable left-sided chest pain due to 2nd through 6th left-sided rib fractures with two fracture components meeting criteria for flail chest/bilateral pleural effusion L>Rt on IV Dilaudid for severe pain, oxycodone for [id number]-[id number] pain. DuoNeb updraft q.i.d. and as needed Encourage incentive spirometry, cough syrup, repeat imaging studies for follow- up on pleural effusions if noted worsening symptoms or hypoxia Seen by thoracic surgery they recommend non operative management with pain control, pulmonary toilet and incentive spirometry they will discuss with anesthesia regarding possible epidural versus paraspinal block if the pain is difficult to manage with as needed analgesics Follow CBC/ clinical course/ obtain PT/OT eval Diabetes mellitus type 2 on insulin noted to have hypoglycemia on arrival, now blood sugar improved continue insulin sliding scale and diabetic diet. Chronic Anemia stable H/H follow CBC CAD no chest pain, continue Coreg 6.25 b.i.d., will resume Plavix since no surgical procedure planned HTN noted to have labile blood pressure, continue home medications, Coreg amlodipine and prazosin , resume losartan if BP noted to be elevated Hyperlipidemia on Lipitor History of depression and anxiety continue home meds. Class 2 obesity will recommend weight loss/low-calorie diet. DVT prophylaxis on compression boots In my clinical judgment patient need continued inpatient hospitalization for management of intractable left-sided chest pain due to 2nd to 6th rib fractures. Quality Stroke Does the patient have a stroke diagnosis?: No VTE Prior VTE?: No VTE Risk Level:: Medical - moderate - high VTE Device Contraindication: N/A - Device Ordered VTE Drug Contraindication: Treatment Not Indicated
--- NOTE | 2023-09-10 18:36 | PC.NURSE ---
patient family at bedside, just made this RN aware patient has taken their own klonopin and tylenol out of their purse, unknown doses. attending physician aware, no new orders at this time
[2023-09-10 19:11] LABS: Glucose, Whole Blood 162 mg/dL (60-115)
[2023-09-10 22:14] LABS: Glucose, Whole Blood 178 mg/dL (60-115)
[2023-09-10] MEDS: clonazePAM 0.5 MG TABLET PO (22:33)
[2023-09-10] MEDS: bisacodyL 5 MG TABLET.DR 10 MG PO (22:33)
[2023-09-10] MEDS: 0.9 % Sodium Chloride Flush 3 ML SYRINGE IVFLUSH (22:34)
[2023-09-10] MEDS: Prazosin HCL 1 MG CAPSULE 6 MG PO (22:45)
[2023-09-11] VITALS (8 sets, daily range): BP systolic 131–166; BP diastolic 58–73; PULSE 82–94; RESP 16–20; TEMP 36.4–36.6; O2SAT 93–98
[2023-09-11] MEDS: guaiFEN/Codeine SF 200/20/10ML 10 ML LIQUID PO (05:55)
[2023-09-11] MEDS: HYDROmorphone HCl 1 MG/ML SYRINGE IVPUSH ×4 (05:56→22:05)
[2023-09-11] MEDS: Levothyroxine Sodium 112 MCG TABLET PO (05:56)
[2023-09-11] MEDS: Omeprazole 40 MG CAPSULE.DR PO (05:56)
[2023-09-11 07:03] LABS: Hematocrit 32.8 % (37.0-47.0); Hemoglobin 10.6 g/dl (12.0-16.0); Mean Corpuscular HGB Conc 32.3 g/dl (31.0-35.0); Mean Corpuscular Hemoglobin 28.4 pg (27.0-33.0); Mean Corpuscular Volume 87.9 fL (80.0-98.0); Mean Platelet Volume 9.9 fL (9.4-12.3); Platelet Count 265 X10*3/uL (160-400); Red Blood Count 3.73 X10*6/uL (4.20-5.50); Red Cell Distribution Width 14.3 % (11.0-16.0); White Blood Count 13.1 X10*3/uL (4.8-10.8)
[2023-09-11] MEDS: Albuterol/Iprat 2.5/0.5MG 3 ML AMPUL.NEB INHALE ×2 (07:21→19:18)
[2023-09-11 07:30] LABS: Glucose, Whole Blood 139 mg/dL (60-115)
[2023-09-11] MEDS: Losartan Potassium 50 MG TABLET 100 MG PO (09:58)
[2023-09-11] MEDS: Folic Acid 1 MG TABLET PO (09:58)
[2023-09-11] MEDS: Venlafaxine HCl ER 150 MG CAP.ER.24H PO (09:58)
[2023-09-11] MEDS: hydrOXYzine HCL 10 MG TABLET PO (09:58)
[2023-09-11] MEDS: Clopidogrel Bisulfate 75 MG TABLET PO (09:58)
[2023-09-11] MEDS: Atorvastatin Calcium 20 MG TABLET PO (09:58)
[2023-09-11] MEDS: Cholecalciferol (Vitamin D3) 25 MCG TABLET 50 MCG PO (09:59)
[2023-09-11] MEDS: ARIPiprazole 20 MG TABLET PO (09:59)
[2023-09-11] MEDS: Docusate Sodium 100 MG CAPSULE PO (09:59)
[2023-09-11] MEDS: polyethylene glycoL 3350 17 GM POWD.PACK PO (09:59)
[2023-09-11] MEDS: Gabapentin 100 MG CAPSULE PO ×2 (10:00→21:03)
[2023-09-11] MEDS: carvediloL 6.25 MG TABLET PO ×2 (10:00→21:03)
[2023-09-11] MEDS: 0.9 % Sodium Chloride Flush 3 ML SYRINGE IVFLUSH ×2 (10:00→17:20)
[2023-09-11] MEDS: guaiFENesin DM 200/20/10 ML 10 ML SYRUP PO ×4 (10:15→21:02)
[2023-09-11 11:30] LABS: Glucose, Whole Blood 346 mg/dL (60-115)
[2023-09-11 12:19] LABS: Glucose, Whole Blood 344 mg/dL (60-115)
[2023-09-11] MEDS: oxyCODONE HCl Immed Release 5 MG TABLET PO ×2 (12:25→21:03)
[2023-09-11] MEDS: Insulin Lispro 100 UNIT/ML 3 ML VIAL SUBCUT ×3 (12:25→21:12)
--- NOTE | 2023-09-11 14:46 | HO.PM.IMPN ---
Subjective Subjective Date of Service: 09/11/23 Interval History: Complaining of persistent left-sided chest pain, feels improvement with analgesics also complaining of constipation no bowel movement in last several days, no fevers no chills, noted to have leukocytosis, No worsening cough shortness of breath question reactive. Review of Systems All other system reviewed and negative Physical Exam Vital Signs: Vital Signs: Last Vital Signs Temp 97.7 F 09/11/23 11:42 Pulse 94 09/11/23 11:42 Resp 20 09/11/23 11:42 BP 135/58 L 09/11/23 11:42 Pulse Ox 97 09/11/23 11:42 O2 Del Method Room Air 09/11/23 11:42 O2 Flow Rate 2 09/11/23 08:00 BMI result Body Mass Index 35.9 Const: Other: General awake alert x3 ,in mild distress due to pain Anicteric sclera Necksupple no JVD. CVS regular rate rhythm, Respiratory lungs shallow breaths due to pain, diminished left side and both bases,no wheeze, no rhonchi, left arm sling in place Gastrointestinal abdomen soft, non tender, bowel sounds audible, no guarding , no rigidity. Extremities no edema. Neuro non focal Skin no rash Psych appropriate affect Objective Data Active Medications Acetaminophen (Acetaminophen 325 Mg Tablet) 650 mg PO Q6H PRN PRN Reason: Pain, Mild (Pain Scale 1-3) Al Hydroxide/Mg Hydroxide (Magnesium Hydrox/Alum Hydrox 30 Ml Oral.Susp) 30 ml PO Q4H PRN PRN Reason: Heartburn/Nausea Albuterol Sulfate (Albuterol Sulfate 90 Mcg 8 Gm Inhaler) 2 puff INHALE Q4H PRN PRN Reason: shortness of breath or wheezing Albuterol/Ipratropium (Albuterol/Iprat 2.5/0.5mg 3 Ml Ampul.Neb) 3 ml INHALE RQ6H WHILE AWAKE [facility] Last Admin: 09/11/23 07:21 Dose: 3 ml Documented By: CONNOR Aripiprazole (Aripiprazole 20 Mg Tablet) 20 mg PO DAILY [facility] Last Admin: 09/11/23 09:59 Dose: 20 mg Documented By: RUBI Atorvastatin Calcium (Atorvastatin Calcium 20 Mg Tablet) 20 mg PO DAILY [facility] Last Admin: 05/23/24 09:58 Dose: 20 mg Documented By: RUBI Bisacodyl (Bisacodyl 5 Mg Tablet.Dr) 10 mg PO BEDTIME [facility] Last Admin: 09/10/23 22:33 Dose: 10 mg Documented By: MARY ALICE Carvedilol (Carvedilol 6.25 Mg Tablet) 6.25 mg PO BID [facility]; Protocol Last Admin: 09/11/23 10:00 Dose: 6.25 mg Documented By: RUBI Clonazepam (Clonazepam 0.5 Mg Tablet) 0.5 mg PO TID PRN PRN Reason: anxiety/restlessness Last Admin: 09/10/23 22:33 Dose: 0.5 mg Documented By: MARY ALICE Clopidogrel Bisulfate (Clopidogrel Bisulfate 75 Mg Tablet) 75 mg PO DAILY [facility] Last Admin: 09/11/23 09:58 Dose: 75 mg Documented By: RUBI Docusate Sodium (Docusate Sodium 100 Mg Capsule) 100 mg PO BID [facility] Last Admin: 09/11/23 09:59 Dose: 100 mg Documented By: RUBI Folic Acid (Folic Acid 1 Mg Tablet) 1 mg PO DAILY [facility] Last Admin: 09/11/23 09:58 Dose: 1 mg Documented By: RUBI Gabapentin (Gabapentin 100 Mg Capsule) 100 mg PO BID [facility] Last Admin: 09/11/23 10:00 Dose: 100 mg Documented By: RUBI Glucose (Glucose Gel 15 Gm Gel..Gram.) 15 gm PO Q15M PRN; Protocol PRN Reason: per Hypoglycemia Standing Ord. Last Admin: 09/10/23 07:34 Dose: 15 gm Documented By: ANABELA Guaifenesin/Codeine Phosphate (Guaifen/Codeine Sf 200/20/10ml 10 Ml Liquid) 10 ml PO Q6H PRN PRN Reason: cough Last Admin: 09/11/23 05:55 Dose: 10 ml Documented By: MARY ALICE Guaifenesin/Dextromethorphan (Guaifenesin Dm 200/20/10 Ml 10 Ml Syrup) 10 ml PO QID [facility] Last Admin: 09/11/23 12:25 Dose: 10 ml Documented By: TANK Hydromorphone HCl (Hydromorphone Hcl 1 Mg/Ml Syringe) 1 mg IVPUSH Q4H PRN; Protocol PRN Reason: Pain, Severe (Pain Scale 7-10) Last Admin: 09/11/23 09:57 Dose: 1 mg Documented By: RUBI Hydroxyzine HCl (Hydroxyzine Hcl 10 Mg Tablet) 10 mg PO Q8H PRN PRN Reason: Anxiety Last Admin: 09/11/23 09:58 Dose: 10 mg Documented By: RUBI Dextrose (D10) 250 mls @ 750 mls/hr IV Q15M PRN; Protocol PRN Reason: per Hypoglycemia Standing Ord. Insulin Human Lispro (Insulin Lispro 100 Unit/Ml 3 Ml Vial) 0 unit SUBCUT QIDACHS [facility]; Protocol Last Admin: 09/11/23 12:25 Dose: 8 unit Documented By: TANK Levothyroxine Sodium (Levothyroxine Sodium 112 Mcg Tablet) 112 mcg PO DAILY@0600 [facility] Last Admin: 09/11/23 05:56 Dose: 112 mcg Documented By: MARY ALICE Losartan Potassium (Losartan Potassium 50 Mg Tablet) 100 mg PO DAILY [facility]; Protocol Last Admin: 09/11/23 09:58 Dose: 100 mg Documented By: RUBI Magnesium Hydroxide (Milk Of Magnesia 30 Ml Oral.Susp) 30 ml PO DAILY PRN PRN Reason: Constipation Melatonin (Melatonin 3 Mg Tablet) 3 mg PO BEDTIME PRN PRN Reason: insomnia Omeprazole (Omeprazole 40 Mg Capsule.Dr) 40 mg PO DAILY@0630 [facility] Last Admin: 09/11/23 05:56 Dose: 40 mg Documented By: MARY ALICE Ondansetron HCl (Ondansetron Hcl 4 Mg/2 Ml Vial) 4 mg IVPUSH Q8H PRN PRN Reason: Nausea and Vomiting Oxycodone HCl (Oxycodone Hcl Immed Release 5 Mg Tablet) 5 mg PO Q4H PRN PRN Reason: Pain, Moderate(Pain Scale 4-6) Last Admin: 09/11/23 12:25 Dose: 5 mg Documented By: TANK Polyethylene Glycol (Polyethylene Glycol 3350 17 Gm Powd.Pack) 17 gm PO DAILY [facility] Last Admin: 09/11/23 09:59 Dose: 17 gm Documented By: RUBI Prazosin HCl (Prazosin Hcl 1 Mg Capsule) 6 mg PO BEDTIME [facility]; Protocol Last Admin: 09/10/23 22:45 Dose: 6 mg Documented By: MARY ALICE Sodium Chloride (0.9 % Sodium Chloride Flush 3 Ml Syringe) 3 ml IVFLUSH QSHIFT [facility] Last Admin: 09/11/23 10:00 Dose: 3 ml Documented By: RUBI Venlafaxine HCl (Venlafaxine Hcl Er 150 Mg Cap.Er.24h) 150 mg PO DAILY [facility] Last Admin: 09/11/23 09:58 Dose: 150 mg Documented By: RUBI Vitamin D (Cholecalciferol (Vitamin D3) 25 Mcg Tablet) 50 mcg PO DAILY@0900 [facility] Last Admin: 09/11/23 09:59 Dose: 50 mcg Documented By: RUBI Labs 09/11/23 06:31 09/09/23 12:13 Labs: Laboratory Results - last 24 hr 09/10/23 09/10/23 09/11/23 17:57 22:10 06:31 MCV 87.9 MCH 28.4 MCHC 32.3 RDW 14.3 Plt Count 265 MPV 9.9 Absolute Nucleated RBC 0.000 Nucleated RBC % (auto) 0.0 POC Glucose 162 H 178 H 09/11/23 09/11/23 09/11/23 07:13 10:49 12:15 MCV MCH MCHC RDW Plt Count MPV Absolute Nucleated RBC Nucleated RBC % (auto) POC Glucose 139 H 346 H 344 H Microbiology Microbiology Results: Microbiology 09/09/23 Unknown Urine Culture - Final Urine clean catch - Urine britt top Klebsiella pneumoniae Assessment and Plan (1) Multiple rib fractures involving four or more ribs: Status: Acute Plan 73-year-old female with past medical history of diabetes mellitus type 2 on insulin, hypertension, hyperlipidemia, GERD, rheumatoid arthritis, depression presented to [facility] due to left-sided chest pain after she sustained a fall on August 26 and [place] while visiting family patient was discharged home on analgesics and muscles relaxers and was recommended orthopedic follow-up however [place] and came to ED today due to intractable left-sided pain, limiting ambulation, lack of sleep coughing and inability to take deep breaths. Intractable left-sided chest pain due to 2nd through 6th left-sided rib fractures with two fracture components meeting criteria for flail chest/bilateral pleural effusion L>Rt Persistent pain, responding to analgesics Continue IV Dilaudid for severe pain, oxycodone for [id number]-ykaxsojk pain. DuoNeb updraft q.i.d. and as needed Encourage incentive spirometry, cough syrup, repeat chest x-ray at a.m. for follow-up on pleural effusions Seen by thoracic surgery they recommend non operative management with pain control, pulmonary toilet and incentive spirometry /will take 6-8 weeks to heal Follow CBC/ clinical course PT/OT recommend short-term rehab Chronic constipation continue bowel regimen give lactulose and add Senokot continue Colace, Dulcolax and MiraLax, on Linzess at home. Diabetes mellitus type 2 on insulin noted to have hypoglycemia on arrival, now blood sugar elevated, will resume basal insulin and continue insulin sliding scale and diabetic diet. Chronic Anemia stable H/H follow CBC CAD no chest pain, continue Coreg 6.25 b.i.d., will resume Plavix since no surgical procedure planned HTN noted to have labile blood pressure, continue home medications, Coreg amlodipine and prazosin , resume losartan if BP noted to be elevated Hyperlipidemia on Lipitor History of depression and anxiety continue home meds. Class 2 obesity will recommend weight loss/low-calorie diet. DVT prophylaxis on compression boots In my clinical judgment patient need continued inpatient hospitalization for management of intractable left-sided chest pain due to 2nd to 6th rib fractures. Quality Stroke Does the patient have a stroke diagnosis?: No VTE Prior VTE?: No VTE Risk Level:: Medical - moderate - high VTE Device Contraindication: N/A - Device Ordered VTE Drug Contraindication: Treatment Not Indicated
[2023-09-11 16:09] LABS: Glucose, Whole Blood 321 mg/dL (60-115)
[2023-09-11] MEDS: Lactulose 20 GM/30 ML SOLUTION PO (17:19)
[2023-09-11 20:27] LABS: Glucose, Whole Blood 165 mg/dL (60-115)
[2023-09-11] MEDS: Prazosin HCL 1 MG CAPSULE 6 MG PO (21:02)
[2023-09-11] MEDS: Docusate Sodium 100 MG CAPSULE 200 MG PO (21:03)
[2023-09-11] MEDS: bisacodyL 5 MG TABLET.DR 10 MG PO (21:04)
[2023-09-11] MEDS: Sennosides/Docusate Sodium TABLET 2 TAB PO (21:04)
[2023-09-12] VITALS (13 sets, daily range): BP systolic 109–178; BP diastolic 60–79; PULSE 78–103; RESP 16–20; TEMP 36.2–36.8; O2SAT 93–98
[2023-09-12] MEDS: HYDROmorphone HCl 1 MG/ML SYRINGE IVPUSH ×2 (04:00→09:21)
[2023-09-12] MEDS: 0.9 % Sodium Chloride Flush 3 ML SYRINGE IVFLUSH ×4 (04:00→21:18)
[2023-09-12] MEDS: Levothyroxine Sodium 112 MCG TABLET PO (05:15)
[2023-09-12] MEDS: Omeprazole 40 MG CAPSULE.DR PO (05:15)
[2023-09-12 07:42] LABS: Glucose, Whole Blood 201 mg/dL (60-115)
[2023-09-12] MEDS: Insulin Lispro 100 UNIT/ML 3 ML VIAL SUBCUT ×2 (07:52→11:07)
[2023-09-12] MEDS: Albuterol/Iprat 2.5/0.5MG 3 ML AMPUL.NEB INHALE ×3 (08:18→18:41)
[2023-09-12] MEDS: Insulin Glargine,Hum.rec.anlog 100 UNIT/ML 10 ML VIAL 21 UNIT SUBCUT (09:37)
[2023-09-12] MEDS: oxyCODONE HCl ER 10 MG TAB.ER.12H PO ×2 (09:38→21:09)
[2023-09-12] MEDS: Clopidogrel Bisulfate 75 MG TABLET PO (09:38)
[2023-09-12] MEDS: Folic Acid 1 MG TABLET PO (09:38)
[2023-09-12] MEDS: Cholecalciferol (Vitamin D3) 25 MCG TABLET 50 MCG PO (09:38)
[2023-09-12] MEDS: ARIPiprazole 20 MG TABLET PO (09:38)
[2023-09-12] MEDS: Venlafaxine HCl ER 150 MG CAP.ER.24H PO (09:39)
[2023-09-12] MEDS: Atorvastatin Calcium 20 MG TABLET PO (09:39)
[2023-09-12] MEDS: Losartan Potassium 50 MG TABLET 100 MG PO (09:39)
[2023-09-12] MEDS: Gabapentin 100 MG CAPSULE PO ×2 (09:39→21:09)
[2023-09-12] MEDS: carvediloL 6.25 MG TABLET PO ×2 (09:39→21:09)
[2023-09-12] MEDS: guaiFENesin DM 200/20/10 ML 10 ML SYRUP PO ×4 (09:48→21:10)
[2023-09-12 11:21] LABS: Glucose, Whole Blood 386 mg/dL (60-115)
--- NOTE | 2023-09-12 13:23 | P.PNIM_ITS ---
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 Review of Systems All other system reviewed and negative Physical Exam 2 Vital Signs: Vital Signs: Last Vital Signs Temp 97.8 F 09/12/23 11:35 Pulse 84 09/12/23 11:35 Resp 20 09/12/23 11:35 BP 166/67 H 09/12/23 11:35 Pulse Ox 95 09/12/23 11:35 O2 Del Method Room Air 09/12/23 11:35 O2 Flow Rate 2 09/11/23 08:00 BMI result Body Mass Index 35.9 Const: Other: General awake alert x3 ,in mild distress due to pain Anicteric sclera Necksupple no JVD. CVS regular rate rhythm, Respiratory lungs shallow breaths due to pain, dry coarse breath sound ,diminished at bases,no wheeze, left arm sling in place Gastrointestinal abdomen soft, non tender, bowel sounds audible, no guarding , no rigidity. Extremities no edema. Neuro non focal Skin no rash Psych appropriate affect Objective Data Active Medications Acetaminophen (Acetaminophen 325 Mg Tablet) 650 mg PO Q6H PRN PRN Reason: Pain, Mild (Pain Scale 1-3) Al Hydroxide/Mg Hydroxide (Magnesium Hydrox/Alum Hydrox 30 Ml Oral.Susp) 30 ml PO Q4H PRN PRN Reason: Heartburn/Nausea Albuterol Sulfate (Albuterol Sulfate 90 Mcg 8 Gm Inhaler) 2 puff INHALE Q4H PRN PRN Reason: shortness of breath or wheezing Albuterol/Ipratropium (Albuterol/Iprat 2.5/0.5mg 3 Ml Ampul.Neb) 3 ml INHALE RQ6H WHILE AWAKE [facility] Last Admin: 09/12/23 08:18 Dose: 3 ml Documented By: CEE Aripiprazole (Aripiprazole 20 Mg Tablet) 20 mg PO DAILY [facility] Last Admin: 09/12/23 09:38 Dose: 20 mg Documented By: LEWIS Atorvastatin Calcium (Atorvastatin Calcium 20 Mg Tablet) 20 mg PO DAILY [facility] Last Admin: 09/12/23 09:39 Dose: 20 mg Documented By: LEWIS Bisacodyl (Bisacodyl 5 Mg Tablet.Dr) 10 mg PO BEDTIME [facility] Last Admin: 09/11/23 21:04 Dose: 10 mg Documented By: SITA Carvedilol (Carvedilol 6.25 Mg Tablet) 6.25 mg PO BID [facility]; Protocol Last Admin: 09/12/23 09:39 Dose: 6.25 mg Documented By: LEWIS Clonazepam (Clonazepam 0.5 Mg Tablet) 0.5 mg PO TID PRN PRN Reason: anxiety/restlessness Last Admin: 09/10/23 22:33 Dose: 0.5 mg Documented By: MARY ALICE Clopidogrel Bisulfate (Clopidogrel Bisulfate 75 Mg Tablet) 75 mg PO DAILY [facility] Last Admin: 09/12/23 09:38 Dose: 75 mg Documented By: LEWIS Docusate Sodium (Docusate Sodium 100 Mg Capsule) 200 mg PO BEDTIME [facility] Last Admin: 09/11/23 21:03 Dose: 200 mg Documented By: SITA Folic Acid (Folic Acid 1 Mg Tablet) 1 mg PO DAILY [facility] Last Admin: 09/12/23 09:38 Dose: 1 mg Documented By: LEWIS Gabapentin (Gabapentin 100 Mg Capsule) 100 mg PO BID [facility] Last Admin: 09/12/23 09:39 Dose: 100 mg Documented By: LEWIS Glucose (Glucose Gel 15 Gm Gel..Gram.) 15 gm PO Q15M PRN; Protocol PRN Reason: per Hypoglycemia Standing Ord. Last Admin: 09/10/23 07:34 Dose: 15 gm Documented By: ANABELA Guaifenesin/Codeine Phosphate (Guaifen/Codeine Sf 200/20/10ml 10 Ml Liquid) 10 ml PO Q6H PRN PRN Reason: cough Last Admin: 09/11/23 05:55 Dose: 10 ml Documented By: MARY ALICE Guaifenesin/Dextromethorphan (Guaifenesin Dm 200/20/10 Ml 10 Ml Syrup) 10 ml PO QID [facility] Last Admin: 09/12/23 13:03 Dose: 10 ml Documented By: LEWIS Hydromorphone HCl (Hydromorphone Hcl 1 Mg/Ml Syringe) 1 mg IVPUSH Q4H PRN; Protocol PRN Reason: Pain, Severe (Pain Scale 7-10) Last Admin: 09/12/23 09:21 Dose: 1 mg Documented By: LEWIS Hydroxyzine HCl (Hydroxyzine Hcl 10 Mg Tablet) 10 mg PO Q8H PRN PRN Reason: Anxiety Last Admin: 09/11/23 09:58 Dose: 10 mg Documented By: RUBI Dextrose (D10) 250 mls @ 750 mls/hr IV Q15M PRN; Protocol PRN Reason: per Hypoglycemia Standing Ord. Insulin Glargine (Insulin Glargine,Hum.Rec.Anlog 100 Unit/Ml 10 Ml Vial) 21 unit SUBCUT DAILY [facility] Last Admin: 09/12/23 09:37 Dose: 21 unit Documented By: LEWIS Insulin Human Lispro (Insulin Lispro 100 Unit/Ml 3 Ml Vial) 0 unit SUBCUT QIDACHS [facility]; Protocol Last Admin: 09/12/23 11:07 Dose: 10 unit Documented By: LEWIS Levothyroxine Sodium (Levothyroxine Sodium 112 Mcg Tablet) 112 mcg PO DAILY@0600 [facility] Last Admin: 09/12/23 05:15 Dose: 112 mcg Documented By: LUIS ALBERTO Losartan Potassium (Losartan Potassium 50 Mg Tablet) 100 mg PO DAILY [facility]; Protocol Last Admin: 09/12/23 09:39 Dose: 100 mg Documented By: LEWIS Magnesium Hydroxide (Milk Of Magnesia 30 Ml Oral.Susp) 30 ml PO DAILY PRN PRN Reason: Constipation Melatonin (Melatonin 3 Mg Tablet) 3 mg PO BEDTIME PRN PRN Reason: insomnia Non-Formulary Medication (Linaclotide [Linzess]) 290 mcg PO DAILY@0900 [facility] Omeprazole (Omeprazole 40 Mg Capsule.Dr) 40 mg PO DAILY@0630 [facility] Last Admin: 09/12/23 05:15 Dose: 40 mg Documented By: LUIS ALBERTO Ondansetron HCl (Ondansetron Hcl 4 Mg/2 Ml Vial) 4 mg IVPUSH Q8H PRN PRN Reason: Nausea and Vomiting Oxycodone HCl (Oxycodone Hcl Immed Release 5 Mg Tablet) 5 mg PO Q4H PRN PRN Reason: Pain, Moderate(Pain Scale 4-6) Last Admin: 09/11/23 21:03 Dose: 5 mg Documented By: SITA Oxycodone HCl (Oxycodone Hcl Er 10 Mg Tab.Er.12h) 10 mg PO BID [facility] Last Admin: 09/12/23 09:38 Dose: 10 mg Documented By: LEWIS Polyethylene Glycol (Polyethylene Glycol 3350 17 Gm Powd.Pack) 17 gm PO BID [facility] Last Admin: 09/12/23 09:40 Dose: Not Given Documented By: LEWIS Non-Admin Reason: incont loose stools Prazosin HCl (Prazosin Hcl 1 Mg Capsule) 6 mg PO BEDTIME [facility]; Protocol Last Admin: 09/11/23 21:02 Dose: 6 mg Documented By: SITA Senna/Docusate Sodium (Sennosides/Docusate Sodium Tablet) 2 tab PO BEDTIME [facility] Last Admin: 09/11/23 21:04 Dose: 2 tab Documented By: SITA Sodium Chloride (0.9 % Sodium Chloride Flush 3 Ml Syringe) 3 ml IVFLUSH QSHIFT [facility] Last Admin: 09/12/23 09:22 Dose: 3 ml Documented By: LEWIS Venlafaxine HCl (Venlafaxine Hcl Er 150 Mg Cap.Er.24h) 150 mg PO DAILY [facility] Last Admin: 09/12/23 09:39 Dose: 150 mg Documented By: LEWIS Vitamin D (Cholecalciferol (Vitamin D3) 25 Mcg Tablet) 50 mcg PO DAILY@0900 [facility] Last Admin: 09/12/23 09:38 Dose: 50 mcg Documented By: LEWIS Labs 09/11/23 06:31 09/09/23 12:13 Labs: Laboratory Results - last 24 hr 09/11/23 09/11/23 09/12/23 15:56 20:22 07:19 POC Glucose 321 H 165 H 201 H 09/12/23 11:00 POC Glucose 386 H* Assessment and Plan (1) Multiple rib fractures involving four or more ribs: Status: Acute Plan 73-year-old female with past medical history of diabetes mellitus type 2 on insulin, hypertension, hyperlipidemia, GERD, rheumatoid arthritis, depression presented to [facility] due to left-sided chest pain after she sustained a fall on August 26 and [place] while visiting family patient was discharged home on analgesics and muscles relaxers and was recommended orthopedic follow-up however patient returned yesterday to [place] and came to ED today due to intractable left-sided pain, limiting ambulation, lack of sleep coughing and inability to take deep breaths. Intractable left-sided chest pain due to 2nd through 6th left-sided rib fractures with two fracture components meeting criteria for flail chest/bilateral pleural effusion L>Rt Persistent pain, responding to analgesics Added OxyContin 10 mg b.i.d., Continue IV Dilaudid for severe pain and gradually wean, oxycodone for [id number] pain. DuoNeb updraft q.i.d. and as needed Encourage incentive spirometry, cough syrup, repeat chest x-ray pending for follow-up on pleural effusions Seen by thoracic surgery they recommend non operative management with pain control, pulmonary toilet and incentive spirometry /will take 6-8 weeks to heal Follow CBC/ clinical course PT/OT recommend short-term rehab Chronic constipation resolved continue bowel regimen Senokot ,Colace, and MiraLax, on Linzess at home. Diabetes mellitus type 2 on insulin noted to have hypoglycemia on arrival, now blood sugar elevated, cont basal insulin and continue insulin sliding scale and diabetic diet.( on Tresiba 30 units daily) Chronic Anemia stable H/H follow CBC CAD no chest pain, continue Coreg 6.25 b.i.d., Plavix , no surgical procedure planned HTN noted to have labile blood pressure likely due to pain, continue home medications, Coreg ,amlodipine , prazosin , and losartan Hyperlipidemia on Lipitor History of depression and anxiety continue home meds. Class 2 obesity will recommend weight loss/low-calorie diet. DVT prophylaxis on compression boots In my clinical judgment patient need continued inpatient hospitalization for management of intractable left-sided chest pain due to 2nd to 6th rib fractures, requiring IV analgesics, will need safe disposition to rehab. Quality Stroke Does the patient have a stroke diagnosis?: No VTE Prior VTE?: No VTE Risk Level:: Medical - moderate - high VTE Device Contraindication: N/A - Device Ordered VTE Drug Contraindication: Treatment Not Indicated
[2023-09-12] MEDS: oxyCODONE HCl Immed Release 5 MG TABLET PO (15:16)
--- NOTE | 2023-09-12 15:29 | MHC.CM.PN ---
Addendum entered by Vielka Keller 09/12/23 15:31: EMR reviewed and per MD rounds, pt is not ready for discharge today due to unmanaged pain, but plan will be STR when medically cleared. Original Note: This CM met with pt to discuss discharge plan with Romansh interpreters assistance. Pt is agreeable to going to STR. This CM assisted pt in completing a HCP, now on file, pt named her son Prabhjot as her HCP. This CM placed call to Prabhjot to discuss STR options per pts request, awaiting return call from Prabhjot.
[2023-09-12 16:02] LABS: Glucose, Whole Blood 87 mg/dL (60-115)
[2023-09-12] MEDS: Acetaminophen 325 MG TABLET 650 MG PO (16:41)
[2023-09-12 20:13] LABS: Glucose, Whole Blood 77 mg/dL (60-115)
[2023-09-12] MEDS: Docusate Sodium 100 MG CAPSULE 200 MG PO (21:08)
[2023-09-12] MEDS: Sennosides/Docusate Sodium TABLET 2 TAB PO (21:10)
[2023-09-12] MEDS: Prazosin HCL 1 MG CAPSULE 6 MG PO (21:10)
[2023-09-12] MEDS: bisacodyL 5 MG TABLET.DR 10 MG PO (21:10)
[2023-09-13] VITALS (10 sets, daily range): BP systolic 139–140; BP diastolic 63–70; PULSE 70–108; RESP 13–20; TEMP 36–36.6; O2SAT 94–99
[2023-09-13] MEDS: guaiFEN/Codeine SF 200/20/10ML 10 ML LIQUID PO (03:26)
[2023-09-13] MEDS: Levothyroxine Sodium 112 MCG TABLET PO (05:16)
[2023-09-13] MEDS: Omeprazole 40 MG CAPSULE.DR PO (05:16)
[2023-09-13] MEDS: oxyCODONE HCl Immed Release 5 MG TABLET PO ×3 (05:20→21:16)
[2023-09-13 07:05] LABS: Glucose, Whole Blood 181 mg/dL (60-115)
[2023-09-13] MEDS: Venlafaxine HCl ER 150 MG CAP.ER.24H PO (08:21)
[2023-09-13] MEDS: guaiFENesin DM 200/20/10 ML 10 ML SYRUP PO ×4 (08:21→21:03)
[2023-09-13] MEDS: ARIPiprazole 20 MG TABLET PO (08:21)
[2023-09-13] MEDS: Cholecalciferol (Vitamin D3) 25 MCG TABLET 50 MCG PO (08:21)
[2023-09-13] MEDS: Albuterol/Iprat 2.5/0.5MG 3 ML AMPUL.NEB INHALE ×3 (08:21→19:39)
[2023-09-13] MEDS: Losartan Potassium 50 MG TABLET 100 MG PO (08:21)
[2023-09-13] MEDS: Gabapentin 100 MG CAPSULE PO ×2 (08:22→20:40)
[2023-09-13] MEDS: Atorvastatin Calcium 20 MG TABLET PO (08:22)
[2023-09-13] MEDS: carvediloL 6.25 MG TABLET PO ×2 (08:22→20:43)
[2023-09-13] MEDS: oxyCODONE HCl ER 10 MG TAB.ER.12H PO ×2 (08:22→20:43)
[2023-09-13] MEDS: Clopidogrel Bisulfate 75 MG TABLET PO (08:22)
[2023-09-13] MEDS: Insulin Lispro 100 UNIT/ML 3 ML VIAL SUBCUT ×3 (08:22→20:41)
[2023-09-13] MEDS: Folic Acid 1 MG TABLET PO (08:23)
[2023-09-13] MEDS: 0.9 % Sodium Chloride Flush 3 ML SYRINGE IVFLUSH ×3 (08:23→20:42)
[2023-09-13] MEDS: Insulin Glargine,Hum.rec.anlog 100 UNIT/ML 10 ML VIAL 21 UNIT SUBCUT (08:23)
[2023-09-13] MEDS: polyethylene glycoL 3350 17 GM POWD.PACK PO (08:27)
[2023-09-13 11:08] LABS: Glucose, Whole Blood 275 mg/dL (60-115)
--- NOTE | 2023-09-13 14:23 | P.PNIM_ITS ---
Subjective Subjective Date of Service: 09/13/23 Interval History: This history was taken in Kiswahili from the patient. Chest wall/rib pain improving no fever Review of Systems Review of Systems: Yes all other systems are reviewed and are negative Physical Exam 2 Vital Signs: Vital Signs: Last Vital Signs Temp 98 F 09/13/23 06:58 Pulse 108 H 09/13/23 08:23 Resp 18 09/13/23 08:23 BP 140/70 H 09/13/23 08:22 Pulse Ox 94 09/13/23 06:58 O2 Del Method Room Air 09/13/23 06:58 O2 Flow Rate 2 09/11/23 08:00 BMI result Body Mass Index 35.9 Gen: in no acute distress HEENT: sclera anicteric, moist mucus membranes Neck: supple Lungs: diminished bilateral bases Heart: regular rate and rhythm, no murmurs Abd: soft, non-tender, non-distended Ext: no edema Skin: warm/well-perfused Neuro: alert and oriented x3, no focal findings Psych: appropriate affect Objective Data Active Medications Acetaminophen (Acetaminophen 325 Mg Tablet) 650 mg PO Q6H PRN PRN Reason: Pain, Mild (Pain Scale 1-3) Last Admin: 09/12/23 16:41 Dose: 650 mg Documented By: KOKI Al Hydroxide/Mg Hydroxide (Magnesium Hydrox/Alum Hydrox 30 Ml Oral.Susp) 30 ml PO Q4H PRN PRN Reason: Heartburn/Nausea Albuterol Sulfate (Albuterol Sulfate 90 Mcg 8 Gm Inhaler) 2 puff INHALE Q4H PRN PRN Reason: shortness of breath or wheezing Albuterol/Ipratropium (Albuterol/Iprat 2.5/0.5mg 3 Ml Ampul.Neb) 3 ml INHALE RQ6H WHILE AWAKE [facility] Last Admin: 09/13/23 08:21 Dose: 3 ml Documented By: CEE Aripiprazole (Aripiprazole 20 Mg Tablet) 20 mg PO DAILY [facility] Last Admin: 09/13/23 08:21 Dose: 20 mg Documented By: LEWIS Atorvastatin Calcium (Atorvastatin Calcium 20 Mg Tablet) 20 mg PO DAILY [facility] Last Admin: 09/13/23 08:22 Dose: 20 mg Documented By: LEWIS Bisacodyl (Bisacodyl 5 Mg Tablet.) 10 mg PO BEDTIME [facility] Last Admin: 09/12/23 21:10 Dose: 10 mg Documented By: ANANTH Carvedilol (Carvedilol 6.25 Mg Tablet) 6.25 mg PO BID [facility]; Protocol Last Admin: 09/13/23 08:22 Dose: 6.25 mg Documented By: LEWIS Clonazepam (Clonazepam 0.5 Mg Tablet) 0.5 mg PO TID PRN PRN Reason: anxiety/restlessness Last Admin: 09/10/23 22:33 Dose: 0.5 mg Documented By: MARY ALICE Clopidogrel Bisulfate (Clopidogrel Bisulfate 75 Mg Tablet) 75 mg PO DAILY [facility] Last Admin: 09/13/23 08:22 Dose: 75 mg Documented By: LEWIS Docusate Sodium (Docusate Sodium 100 Mg Capsule) 200 mg PO BEDTIME [facility] Last Admin: 09/12/23 21:08 Dose: 200 mg Documented By: ANANTH Folic Acid (Folic Acid 1 Mg Tablet) 1 mg PO DAILY [facility] Last Admin: 09/13/23 08:23 Dose: 1 mg Documented By: LEWIS Gabapentin (Gabapentin 100 Mg Capsule) 100 mg PO BID [facility] Last Admin: 09/13/23 08:22 Dose: 100 mg Documented By: LEWIS Glucose (Glucose Gel 15 Gm Gel..Gram.) 15 gm PO Q15M PRN; Protocol PRN Reason: per Hypoglycemia Standing Ord. Last Admin: 09/10/23 07:34 Dose: 15 gm Documented By: ANABELA Guaifenesin/Codeine Phosphate (Guaifen/Codeine Sf 200/20/10ml 10 Ml Liquid) 10 ml PO Q6H PRN PRN Reason: cough Last Admin: 09/13/23 03:26 Dose: 10 ml Documented By: ANANTH Guaifenesin/Dextromethorphan (Guaifenesin Dm 200/20/10 Ml 10 Ml Syrup) 10 ml PO QID [facility] Last Admin: 09/13/23 12:17 Dose: 10 ml Documented By: LEWIS Hydromorphone HCl (Hydromorphone Hcl 1 Mg/Ml Syringe) 1 mg IVPUSH Q4H PRN; Protocol PRN Reason: Pain, Severe (Pain Scale 7-10) Last Admin: 05/24/24 09:21 Dose: 1 mg Documented By: LEWIS Hydroxyzine HCl (Hydroxyzine Hcl 10 Mg Tablet) 10 mg PO Q8H PRN PRN Reason: Anxiety Last Admin: 09/11/23 09:58 Dose: 10 mg Documented By: RUBI Dextrose (D10) 250 mls @ 750 mls/hr IV Q15M PRN; Protocol PRN Reason: per Hypoglycemia Standing Ord. Insulin Glargine (Insulin Glargine,Hum.Rec.Anlog 100 Unit/Ml 10 Ml Vial) 21 unit SUBCUT DAILY [facility] Last Admin: 09/13/23 08:23 Dose: 21 unit Documented By: LEWIS Insulin Human Lispro (Insulin Lispro 100 Unit/Ml 3 Ml Vial) 0 unit SUBCUT QIDAS [facility]; Protocol Last Admin: 09/13/23 11:24 Dose: 6 unit Documented By: LEWIS Levothyroxine Sodium (Levothyroxine Sodium 112 Mcg Tablet) 112 mcg PO DAILY@0600 [facility] Last Admin: 09/13/23 05:16 Dose: 112 mcg Documented By: ANANTH Losartan Potassium (Losartan Potassium 50 Mg Tablet) 100 mg PO DAILY [facility]; Protocol Last Admin: 09/13/23 08:21 Dose: 100 mg Documented By: LEWIS Magnesium Hydroxide (Milk Of Magnesia 30 Ml Oral.Susp) 30 ml PO DAILY PRN PRN Reason: Constipation Melatonin (Melatonin 3 Mg Tablet) 3 mg PO BEDTIME PRN PRN Reason: insomnia Non-Formulary Medication (Linaclotide [Linzess]) 290 mcg PO DAILY@0900 [facility] Omeprazole (Omeprazole 40 Mg Capsule.) 40 mg PO DAILY@0630 [facility] Last Admin: 09/13/23 05:16 Dose: 40 mg Documented By: ANANTH Ondansetron HCl (Ondansetron Hcl 4 Mg/2 Ml Vial) 4 mg IVPUSH Q8H PRN PRN Reason: Nausea and Vomiting Oxycodone HCl (Oxycodone Hcl Immed Release 5 Mg Tablet) 5 mg PO Q4H PRN PRN Reason: Pain, Moderate(Pain Scale 4-6) Last Admin: 09/13/23 05:20 Dose: 5 mg Documented By: ANANTH Oxycodone HCl (Oxycodone Hcl Er 10 Mg Tab.Er.12h) 10 mg PO BID [facility] Last Admin: 09/13/23 08:22 Dose: 10 mg Documented By: LEWIS Polyethylene Glycol (Polyethylene Glycol 3350 17 Gm Powd.Pack) 17 gm PO DAILY [facility] Last Admin: 09/13/23 08:27 Dose: 17 gm Documented By: LEWIS Prazosin HCl (Prazosin Hcl 1 Mg Capsule) 6 mg PO BEDTIME [facility]; Protocol Last Admin: 09/12/23 21:10 Dose: 6 mg Documented By: ANANTH Senna/Docusate Sodium (Sennosides/Docusate Sodium Tablet) 2 tab PO BEDTIME [facility] Last Admin: 09/12/23 21:10 Dose: 2 tab Documented By: ANANTH Sodium Chloride (0.9 % Sodium Chloride Flush 3 Ml Syringe) 3 ml IVFLUSH QSHIFT [facility] Last Admin: 09/13/23 08:23 Dose: 3 ml Documented By: LEWIS Venlafaxine HCl (Venlafaxine Hcl Er 150 Mg Cap.Er.24h) 150 mg PO DAILY [facility] Last Admin: 09/13/23 08:21 Dose: 150 mg Documented By: LEWIS Vitamin D (Cholecalciferol (Vitamin D3) 25 Mcg Tablet) 50 mcg PO DAILY@0900 [facility] Last Admin: 09/13/23 08:21 Dose: 50 mcg Documented By: LEWIS Labs 09/11/23 06:31 09/09/23 12:13 Labs: Laboratory Results - last 24 hr 09/12/23 09/12/23 09/13/23 15:58 20:09 06:59 POC Glucose 87 77 181 H 09/13/23 11:01 POC Glucose 275 H Assessment and Plan (1) Multiple rib fractures involving four or more ribs: Status: Acute Plan d5 73yo F with DM2, HTN, HLD, GERD, RA, depression fell in [place] 08/26 and was discharged on analgesics + muscle relaxants for rib + clavicle fracture came in with intractable L-sided pain, found to have multiple rib fractures intractable left-sided chest pain due to 2nd through 6th left-sided rib fractures with two fracture components meeting criteria for flail chest/bilateral pleural effusion [L>R] - oxycodone ER 10 mg bid, oxycodone IR 5 mg q4h prn; has not required IV Dilaudid in last 24h - nebs, incentive spirometry - Thoracic Surgery consulted; nonoperative management with analgesia, pulmonary toilet + IS recommended - PT consulted, STR recommended chronic constipation - continue bowel regimen + Linzess DM2 with hypoglycemia and now hyperglycemia - basal-bolus insulin chronic anemia - H+H stable CAD - continue carvedilol + clopidogrel + atorvastatin HTN - continue amlodipine + losartan + prazosin + carvedilol mood disorder - continue aripirazole + venlafaxine hypothyroidism - continue LT4 VTE ppx - SCDs dispo - STR In my clinical judgment, the patient requires continued inpatient hospitalization for the following reasons: placement Total time managing care of this patient today: 35 minutes. Quality Stroke Does the patient have a stroke diagnosis?: No VTE Prior VTE?: No VTE Risk Level:: Medical - moderate - high VTE Device Contraindication: N/A - Device Ordered VTE Drug Contraindication: Treatment Not Indicated
[2023-09-13] MEDS: Acetaminophen 325 MG TABLET 650 MG PO (14:38)
--- NOTE | 2023-09-13 15:44 | MHC.CM.PN ---
PER , PT READY TO DC TO [facility] OFFERING A BED THEY HAVE SUBMITTED FOR AUTH, HOWEVER REPORT THEY WILL LIKELY NOT HAVE IT TODAY CM SPOKE TO PTS SON, SHAHRAM, THIS MORNING AND PROVIDED UPDATES WILL UPDATE HIM ONCE AUTH IS OBTAINED
[2023-09-13 16:28] LABS: Glucose, Whole Blood 110 mg/dL (60-115)
[2023-09-13 20:29] LABS: Glucose, Whole Blood 280 mg/dL (60-115)
[2023-09-13] MEDS: Sennosides/Docusate Sodium TABLET 2 TAB PO (20:40)
[2023-09-13] MEDS: bisacodyL 5 MG TABLET.DR 10 MG PO (20:40)
[2023-09-13] MEDS: Docusate Sodium 100 MG CAPSULE 200 MG PO (20:41)
[2023-09-13] MEDS: Prazosin HCL 1 MG CAPSULE 6 MG PO (21:06)
[2023-09-13] MEDS: Melatonin 3 MG TABLET PO (21:16)
[2023-09-14] VITALS (11 sets, daily range): BP systolic 109–150; BP diastolic 58–76; PULSE 82–98; RESP 13–18; TEMP 36.1–36.6; O2SAT 93–97
[2023-09-14] MEDS: guaiFEN/Codeine SF 200/20/10ML 10 ML LIQUID PO (02:33)
[2023-09-14] MEDS: Levothyroxine Sodium 112 MCG TABLET PO (05:50)
[2023-09-14] MEDS: Omeprazole 40 MG CAPSULE.DR PO (05:50)
[2023-09-14] MEDS: oxyCODONE HCl Immed Release 5 MG TABLET PO ×2 (05:52→19:46)
[2023-09-14 07:18] LABS: Glucose, Whole Blood 177 mg/dL (60-115)
[2023-09-14] MEDS: Venlafaxine HCl ER 150 MG CAP.ER.24H PO (08:10)
[2023-09-14] MEDS: Insulin Lispro 100 UNIT/ML 3 ML VIAL SUBCUT ×3 (08:10→20:14)
[2023-09-14] MEDS: polyethylene glycoL 3350 17 GM POWD.PACK PO (08:10)
[2023-09-14] MEDS: Insulin Glargine,Hum.rec.anlog 100 UNIT/ML 10 ML VIAL 21 UNIT SUBCUT (08:10)
[2023-09-14] MEDS: guaiFENesin DM 200/20/10 ML 10 ML SYRUP PO ×4 (08:10→19:42)
[2023-09-14] MEDS: Clopidogrel Bisulfate 75 MG TABLET PO (08:11)
[2023-09-14] MEDS: ARIPiprazole 20 MG TABLET PO (08:11)
[2023-09-14] MEDS: carvediloL 6.25 MG TABLET PO ×2 (08:11→19:43)
[2023-09-14] MEDS: Cholecalciferol (Vitamin D3) 25 MCG TABLET 50 MCG PO (08:11)
[2023-09-14] MEDS: Atorvastatin Calcium 20 MG TABLET PO (08:11)
[2023-09-14] MEDS: Gabapentin 100 MG CAPSULE PO ×2 (08:12→19:43)
[2023-09-14] MEDS: Losartan Potassium 50 MG TABLET 100 MG PO (08:12)
[2023-09-14] MEDS: Folic Acid 1 MG TABLET PO (08:12)
[2023-09-14] MEDS: 0.9 % Sodium Chloride Flush 3 ML SYRINGE IVFLUSH ×3 (08:12→19:46)
[2023-09-14] MEDS: oxyCODONE HCl ER 10 MG TAB.ER.12H PO ×2 (08:13→19:44)
[2023-09-14] MEDS: Albuterol/Iprat 2.5/0.5MG 3 ML AMPUL.NEB INHALE ×3 (08:28→20:18)
[2023-09-14 11:12] LABS: Glucose, Whole Blood 315 mg/dL (60-115)
--- NOTE | 2023-09-14 13:18 | MHC.CM.PN ---
Addendum entered by Britney Mcadams 09/15/23 14:35: CM SPOKE TO PTS SON, HE REPORTS [facility] IS THE PREFERRED [facility] MESSAGE SENT TO SNF [facility]IA [facility] Addendum entered by Britney Mcadams 09/15/23 14:05: CM ATTEMPTED TO CONTACT PTS SON THIS MORNING TO OBTAIN SNF PREFERENCES THERE WAS NO ANSWER AND CALL DID NOT GO TO [facility] [phone] Original Note: ITA MET WITH PTS SONDENG AT BEDSIDE HE REPORTS HIS SISTER WAS TOLD [facility] IS NOT A GOOD REH[facility] AND SAID HER IS A DOCTOR AND HAS HEARD THE SAME HE REQUESTED A LIST OF PLACES PT COULD POTENTIALLY DC TO HE IS AWARE AUTH IS PENDING, BUT SAYS HE WILL REVIEW THE LIST SINCE WE ARE WAITING ANYWAY SNF LIST BASED ON INSURANCE CONTRACTS WAS PROVIDED [facility] REPORTS HE LIVES IN [place] SO THE [place] WOULD BE OK IF PT CANNOT STAY IN [place] OF NOTE: [facility] REPORTED THEY SUBMITTED FOR AUTH YESTERDAY MORNING, HOWEVER AUTH HAS NOT YET BEEN RECEIVED
--- NOTE | 2023-09-14 13:22 | P.PNIM_ITS ---
Subjective Subjective Date of Service: 09/14/23 Interval History: This history was taken in Romansh from the patient. Pain control improved, off IV Dilaudid now for 48h No cough or fever Review of Systems Review of Systems: Yes all other systems are reviewed and are negative Physical Exam 2 Vital Signs: Vital Signs: Last Vital Signs Temp 97.9 F 09/14/23 06:56 Pulse 82 09/14/23 08:29 Resp 16 09/14/23 08:29 BP 150/69 H 09/14/23 08:12 Pulse Ox 95 09/14/23 06:56 O2 Del Method Room Air 09/14/23 06:56 O2 Flow Rate 2 09/11/23 08:00 BMI result Body Mass Index 35.9 Gen: in no acute distress HEENT: sclera anicteric, moist mucus membranes Neck: supple Lungs: clear bilaterally Heart: regular rate and rhythm, no murmurs Abd: soft, non-tender, non-distended Ext: no edema Skin: warm/well-perfused Neuro: alert and oriented x3, no focal findings Psych: appropriate affect Objective Data Active Medications Acetaminophen (Acetaminophen 325 Mg Tablet) 650 mg PO Q6H PRN PRN Reason: Pain, Mild (Pain Scale 1-3) Last Admin: 09/13/23 14:38 Dose: 650 mg Documented By: LEWIS Al Hydroxide/Mg Hydroxide (Magnesium Hydrox/Alum Hydrox 30 Ml Oral.Susp) 30 ml PO Q4H PRN PRN Reason: Heartburn/Nausea Albuterol Sulfate (Albuterol Sulfate 90 Mcg 8 Gm Inhaler) 2 puff INHALE Q4H PRN PRN Reason: shortness of breath or wheezing Albuterol/Ipratropium (Albuterol/Iprat 2.5/0.5mg 3 Ml Ampul.Neb) 3 ml INHALE RQ6H WHILE AWAKE [facility] Last Admin: 09/14/23 08:28 Dose: 3 ml Documented By: TEOFILO Aripiprazole (Aripiprazole 20 Mg Tablet) 20 mg PO DAILY [facility] Last Admin: 09/14/23 08:11 Dose: 20 mg Documented By: ROWDY Atorvastatin Calcium (Atorvastatin Calcium 20 Mg Tablet) 20 mg PO DAILY [facility] Last Admin: 09/14/23 08:11 Dose: 20 mg Documented By: ROWDY Bisacodyl (Bisacodyl 5 Mg Tablet.) 10 mg PO BEDTIME [facility] Last Admin: 09/13/23 20:40 Dose: 10 mg Documented By: ANANTH Carvedilol (Carvedilol 6.25 Mg Tablet) 6.25 mg PO BID [facility]; Protocol Last Admin: 09/14/23 08:11 Dose: 6.25 mg Documented By: ROWDY Clonazepam (Clonazepam 0.5 Mg Tablet) 0.5 mg PO TID PRN PRN Reason: anxiety/restlessness Last Admin: 09/10/23 22:33 Dose: 0.5 mg Documented By: MARY ALICE Clopidogrel Bisulfate (Clopidogrel Bisulfate 75 Mg Tablet) 75 mg PO DAILY [facility] Last Admin: 09/14/23 08:11 Dose: 75 mg Documented By: ROWDY Docusate Sodium (Docusate Sodium 100 Mg Capsule) 200 mg PO BEDTIME [facility] Last Admin: 09/13/23 20:41 Dose: 200 mg Documented By: ANANTH Folic Acid (Folic Acid 1 Mg Tablet) 1 mg PO DAILY [facility] Last Admin: 09/14/23 08:12 Dose: 1 mg Documented By: ROWDY Gabapentin (Gabapentin 100 Mg Capsule) 100 mg PO BID [facility] Last Admin: 09/14/23 08:12 Dose: 100 mg Documented By: ROWDY Glucose (Glucose Gel 15 Gm Gel..Gram.) 15 gm PO Q15M PRN; Protocol PRN Reason: per Hypoglycemia Standing Ord. Last Admin: 09/10/23 07:34 Dose: 15 gm Documented By: ANABELA Guaifenesin/Codeine Phosphate (Guaifen/Codeine Sf 200/20/10ml 10 Ml Liquid) 10 ml PO Q6H PRN PRN Reason: cough Last Admin: 09/14/23 02:33 Dose: 10 ml Documented By: ANANTH Guaifenesin/Dextromethorphan (Guaifenesin Dm 200/20/10 Ml 10 Ml Syrup) 10 ml PO QID [facility] Last Admin: 09/14/23 08:10 Dose: 10 ml Documented By: ROWDY Hydroxyzine HCl (Hydroxyzine Hcl 10 Mg Tablet) 10 mg PO Q8H PRN PRN Reason: Anxiety Last Admin: 09/11/23 09:58 Dose: 10 mg Documented By: RUBI Dextrose (D10) 250 mls @ 750 mls/hr IV Q15M PRN; Protocol PRN Reason: per Hypoglycemia Standing Ord. Insulin Glargine (Insulin Glargine,Hum.Rec.Anlog 100 Unit/Ml 10 Ml Vial) 21 unit SUBCUT DAILY [facility] Last Admin: 09/14/23 08:10 Dose: 21 unit Documented By: ROWDY Insulin Human Lispro (Insulin Lispro 100 Unit/Ml 3 Ml Vial) 0 unit SUBCUT QIDACHS [facility]; Protocol Last Admin: 09/14/23 12:00 Dose: 8 unit Documented By: ROWDY Levothyroxine Sodium (Levothyroxine Sodium 112 Mcg Tablet) 112 mcg PO DAILY@0600 [facility] Last Admin: 09/14/23 05:50 Dose: 112 mcg Documented By: ANANTH Losartan Potassium (Losartan Potassium 50 Mg Tablet) 100 mg PO DAILY [facility]; Protocol Last Admin: 09/14/23 08:12 Dose: 100 mg Documented By: ROWDY Magnesium Hydroxide (Milk Of Magnesia 30 Ml Oral.Susp) 30 ml PO DAILY PRN PRN Reason: Constipation Melatonin (Melatonin 3 Mg Tablet) 3 mg PO BEDTIME PRN PRN Reason: insomnia Last Admin: 09/13/23 21:16 Dose: 3 mg Documented By: ANANTH Patient Own Medication (Linzess 290 Mcg) 1 each PO DAILY [facility] Last Admin: 09/14/23 09:11 Dose: 1 each Documented By: ROWDY Omeprazole (Omeprazole 40 Mg Capsule.Dr) 40 mg PO DAILY@0630 [facility] Last Admin: 09/14/23 05:50 Dose: 40 mg Documented By: ANANTH Ondansetron HCl (Ondansetron Hcl 4 Mg/2 Ml Vial) 4 mg IVPUSH Q8H PRN PRN Reason: Nausea and Vomiting Oxycodone HCl (Oxycodone Hcl Immed Release 5 Mg Tablet) 5 mg PO Q4H PRN PRN Reason: Pain, Moderate(Pain Scale 4-6) Last Admin: 09/14/23 05:52 Dose: 5 mg Documented By: ANANTH Oxycodone HCl (Oxycodone Hcl Er 10 Mg Tab.Er.12h) 10 mg PO BID [facility] Last Admin: 09/14/23 08:13 Dose: 10 mg Documented By: ROWDY Polyethylene Glycol (Polyethylene Glycol 3350 17 Gm Powd.Pack) 17 gm PO DAILY [facility] Last Admin: 09/14/23 08:10 Dose: 17 gm Documented By: ROWDY Prazosin HCl (Prazosin Hcl 1 Mg Capsule) 6 mg PO BEDTIME [facility]; Protocol Last Admin: 09/13/23 21:06 Dose: 6 mg Documented By: ANANTH Senna/Docusate Sodium (Sennosides/Docusate Sodium Tablet) 2 tab PO BEDTIME [facility] Last Admin: 09/13/23 20:40 Dose: 2 tab Documented By: ANANTH Sodium Chloride (0.9 % Sodium Chloride Flush 3 Ml Syringe) 3 ml IVFLUSH QSHIFT [facility] Last Admin: 09/14/23 08:12 Dose: 3 ml Documented By: ROWDY Venlafaxine HCl (Venlafaxine Hcl Er 150 Mg Cap.Er.24h) 150 mg PO DAILY [facility] Last Admin: 09/14/23 08:10 Dose: 150 mg Documented By: ROWDY Vitamin D (Cholecalciferol (Vitamin D3) 25 Mcg Tablet) 50 mcg PO DAILY@0900 [facility] Last Admin: 09/14/23 08:11 Dose: 50 mcg Documented By: ROWDY Labs 09/11/23 06:31 09/09/23 12:13 Labs: Laboratory Results - last 24 hr 09/13/23 09/13/23 09/14/23 16:23 20:24 07:04 POC Glucose 110 280 H 177 H 09/14/23 11:08 POC Glucose 315 H Assessment and Plan (1) Multiple rib fractures involving four or more ribs: Status: Acute Plan d6 73yo F with DM2, HTN, HLD, GERD, RA, depression fell in [place] 08/26 and was discharged on analgesics + muscle relaxants for rib + clavicle fracture came in with intractable L-sided pain, found to have multiple rib fractures intractable left-sided chest pain due to 2nd through 6th left-sided rib fractures with two fracture components meeting criteria for flail chest/bilateral pleural effusion [L>R] - oxycodone ER 10 mg bid, oxycodone IR 5 mg q4h prn - nebs, incentive spirometry - Thoracic Surgery consulted; nonoperative management with analgesia, pulmonary toilet + IS recommended - PT consulted, STR recommended chronic constipation - continue bowel regimen + Linzess DM2 with hypoglycemia and now hyperglycemia - basal-bolus insulin chronic anemia - H+H stable CAD - continue carvedilol + clopidogrel + atorvastatin HTN - continue amlodipine + losartan + prazosin + carvedilol mood disorder - continue aripirazole + venlafaxine hypothyroidism - continue LT4 VTE ppx - SCDs dispo - STR In my clinical judgment, the patient requires continued inpatient hospitalization for the following reasons: placement Total time managing care of this patient today: 35 minutes. Quality Stroke Does the patient have a stroke diagnosis?: No VTE Prior VTE?: No VTE Risk Level:: Medical - moderate - high VTE Device Contraindication: N/A - Device Ordered VTE Drug Contraindication: Treatment Not Indicated
--- NOTE | 2023-09-14 13:37 | PM.PNTS ---
Subjective Subjective Date of Service: 09/13/23 Interval history: Patient was evaluated with family present. She has no acute respiratory symptoms. She has had marked improvement of her left costal discomfort. Physical Exam Vital Signs: Vital Signs: Last Vital Signs Temp 97.9 F 09/14/23 06:56 Pulse 82 09/14/23 08:29 Resp 16 09/14/23 08:29 BP 150/69 H 09/14/23 08:12 Pulse Ox 95 09/14/23 06:56 O2 Del Method Room Air 09/14/23 06:56 O2 Flow Rate 2 09/11/23 08:00 BMI result Body Mass Index 35.9 Chest: Other: Chest breath sounds bilaterally. Left costal tenderness secondary to multiple rib fractures. Left upper extremity in sling Procedures Date of Service Date of Service: 09/14/23 Progress Note: A&P Assessment and plan (1) Multiple rib fractures involving four or more ribs: Status: Acute (2) Clavicular fracture: Status: Acute (3) Closed flail chest: Status: Acute Plan At present, no acute surgical issues. Continue current plan of analgesics, incentive spirometry, out of bed. Time Spent With Patient Time: Total time managing care of this patient today ____ minutes. Quality Stroke Does the patient have a stroke diagnosis?: No VTE Prior VTE?: No VTE Risk Level:: Medical - moderate - high VTE Device Contraindication: N/A - Device Ordered VTE Drug Contraindication: Treatment Not Indicated
[2023-09-14 16:30] LABS: Glucose, Whole Blood 100 mg/dL (60-115)
--- NOTE | 2023-09-14 19:33 | PC.NURSE ---
Patient had multiple bowel movement, soft, was able to walk to the bathroom with one assist. Patient's son requested to be contacted with any plans of transferring patient to [facility]. Son stated the family has not decided if that is the best move for the patient, they are working on alternative plan. Reported family's request to the night nurse
[2023-09-14] MEDS: Melatonin 3 MG TABLET PO (19:46)
[2023-09-14 20:12] LABS: Glucose, Whole Blood 241 mg/dL (60-115)
[2023-09-14] MEDS: Prazosin HCL 1 MG CAPSULE 6 MG PO (20:43)
[2023-09-15] VITALS (11 sets, daily range): BP systolic 143–191; BP diastolic 60–81; PULSE 83–101; RESP 13–18; TEMP 36.1; O2SAT 93–100
[2023-09-15] MEDS: oxyCODONE HCl Immed Release 5 MG TABLET PO ×4 (00:53→18:47)
[2023-09-15] MEDS: Levothyroxine Sodium 112 MCG TABLET PO (05:14)
[2023-09-15] MEDS: Omeprazole 40 MG CAPSULE.DR PO (05:15)
[2023-09-15] MEDS: hydrOXYzine HCL 10 MG TABLET PO (05:15)
[2023-09-15 07:36] LABS: Glucose, Whole Blood 142 mg/dL (60-115)
[2023-09-15] MEDS: Albuterol/Iprat 2.5/0.5MG 3 ML AMPUL.NEB INHALE ×3 (07:38→19:46)
[2023-09-15] MEDS: Gabapentin 100 MG CAPSULE PO ×2 (09:51→18:47)
[2023-09-15] MEDS: oxyCODONE HCl ER 10 MG TAB.ER.12H PO ×2 (09:51→18:47)
[2023-09-15] MEDS: Cholecalciferol (Vitamin D3) 25 MCG TABLET 50 MCG PO (09:51)
[2023-09-15] MEDS: Losartan Potassium 50 MG TABLET 100 MG PO (09:52)
[2023-09-15] MEDS: guaiFENesin DM 200/20/10 ML 10 ML SYRUP PO ×4 (09:52→18:47)
[2023-09-15] MEDS: carvediloL 6.25 MG TABLET PO ×2 (09:53→18:47)
[2023-09-15] MEDS: ARIPiprazole 20 MG TABLET PO (09:53)
[2023-09-15] MEDS: Atorvastatin Calcium 20 MG TABLET PO (09:53)
[2023-09-15] MEDS: Clopidogrel Bisulfate 75 MG TABLET PO (09:53)
[2023-09-15] MEDS: Venlafaxine HCl ER 150 MG CAP.ER.24H PO (09:53)
[2023-09-15] MEDS: Folic Acid 1 MG TABLET PO (09:53)
[2023-09-15] MEDS: 0.9 % Sodium Chloride Flush 3 ML SYRINGE IVFLUSH ×3 (09:53→20:09)
[2023-09-15] MEDS: Insulin Glargine,Hum.rec.anlog 100 UNIT/ML 10 ML VIAL 21 UNIT SUBCUT (09:53)
[2023-09-15] MEDS: clonazePAM 0.5 MG TABLET PO (11:18)
[2023-09-15 11:21] LABS: Glucose, Whole Blood 367 mg/dL (60-115)
--- NOTE | 2023-09-15 11:24 | HO.PM.IMPN ---
Subjective Subjective Date of Service: 09/15/23 Interval History: This history was taken in Turkish from the patient. Pain improving, no dyspnea or cough, no fever; awaiting rehab placement. Review of Systems Review of Systems: Yes all other systems are reviewed and are negative Physical Exam Vital Signs: Vital Signs: Last Vital Signs Temp 96.9 F 09/15/23 07:25 Pulse 101 H 09/15/23 09:53 Resp 18 09/15/23 07:46 BP 164/70 H 09/15/23 11:24 Pulse Ox 95 09/15/23 07:25 O2 Del Method Room Air 09/15/23 07:25 O2 Flow Rate 2 09/11/23 08:00 BMI result Body Mass Index 35.9 Gen: in no acute distress HEENT: sclera anicteric, moist mucus membranes Neck: supple Lungs: clear bilaterally Heart: regular rate and rhythm, no murmurs Abd: soft, non-tender, non-distended Ext: no edema Skin: warm/well-perfused Neuro: alert and oriented x3, no focal findings Psych: appropriate affect Objective Data Active Medications Acetaminophen (Acetaminophen 325 Mg Tablet) 650 mg PO Q6H PRN PRN Reason: Pain, Mild (Pain Scale 1-3) Last Admin: 09/13/23 14:38 Dose: 650 mg Documented By: LEWIS Al Hydroxide/Mg Hydroxide (Magnesium Hydrox/Alum Hydrox 30 Ml Oral.Susp) 30 ml PO Q4H PRN PRN Reason: Heartburn/Nausea Albuterol Sulfate (Albuterol Sulfate 90 Mcg 8 Gm Inhaler) 2 puff INHALE Q4H PRN PRN Reason: shortness of breath or wheezing Albuterol/Ipratropium (Albuterol/Iprat 2.5/0.5mg 3 Ml Ampul.Neb) 3 ml INHALE RQ6H WHILE AWAKE [facility] Last Admin: 09/15/23 07:38 Dose: 3 ml Documented By: CONNOR Aripiprazole (Aripiprazole 20 Mg Tablet) 20 mg PO DAILY [facility] Last Admin: 09/15/23 09:53 Dose: 20 mg Documented By: ROWDY Atorvastatin Calcium (Atorvastatin Calcium 20 Mg Tablet) 20 mg PO DAILY [facility] Last Admin: 09/15/23 09:53 Dose: 20 mg Documented By: ROWDY Bisacodyl (Bisacodyl 5 Mg Tablet.) 10 mg PO BEDTIME [facility] Last Admin: 09/14/23 20:17 Dose: Not Given Documented By: ANANTH Non-Admin Reason: loose stool Carvedilol (Carvedilol 6.25 Mg Tablet) 6.25 mg PO BID [facility]; Protocol Last Admin: 09/15/23 09:53 Dose: 6.25 mg Documented By: ROWDY Clonazepam (Clonazepam 0.5 Mg Tablet) 0.5 mg PO TID PRN PRN Reason: anxiety/restlessness Last Admin: 09/15/23 11:18 Dose: 0.5 mg Documented By: ROWDY Clopidogrel Bisulfate (Clopidogrel Bisulfate 75 Mg Tablet) 75 mg PO DAILY [facility] Last Admin: 09/15/23 09:53 Dose: 75 mg Documented By: ROWDY Docusate Sodium (Docusate Sodium 100 Mg Capsule) 200 mg PO BEDTIME [facility] Last Admin: 09/14/23 20:17 Dose: Not Given Documented By: ANANTH Non-Admin Reason: loose stool Folic Acid (Folic Acid 1 Mg Tablet) 1 mg PO DAILY [facility] Last Admin: 09/15/23 09:53 Dose: 1 mg Documented By: ROWDY Gabapentin (Gabapentin 100 Mg Capsule) 100 mg PO BID [facility] Last Admin: 09/15/23 09:51 Dose: 100 mg Documented By: ROWDY Glucose (Glucose Gel 15 Gm Gel..Gram.) 15 gm PO Q15M PRN; Protocol PRN Reason: per Hypoglycemia Standing Ord. Last Admin: 09/10/23 07:34 Dose: 15 gm Documented By: ANABELA Guaifenesin/Codeine Phosphate (Guaifen/Codeine Sf 200/20/10ml 10 Ml Liquid) 10 ml PO Q6H PRN PRN Reason: cough Last Admin: 09/14/23 02:33 Dose: 10 ml Documented By: ANANTH Guaifenesin/Dextromethorphan (Guaifenesin Dm 200/20/10 Ml 10 Ml Syrup) 10 ml PO QID [facility] Last Admin: 09/15/23 09:52 Dose: 10 ml Documented By: ROWDY Hydroxyzine HCl (Hydroxyzine Hcl 10 Mg Tablet) 10 mg PO Q8H PRN PRN Reason: Anxiety Last Admin: 09/15/23 05:15 Dose: 10 mg Documented By: ANANTH Dextrose (D10) 250 mls @ 750 mls/hr IV Q15M PRN; Protocol PRN Reason: per Hypoglycemia Standing Ord. Insulin Glargine (Insulin Glargine,Hum.Rec.Anlog 100 Unit/Ml 10 Ml Vial) 21 unit SUBCUT DAILY [facility] Last Admin: 09/15/23 09:53 Dose: 21 unit Documented By: ROWDY Insulin Human Lispro (Insulin Lispro 100 Unit/Ml 3 Ml Vial) 0 unit SUBCUT QIDACHS [facility]; Protocol Last Admin: 09/15/23 07:43 Dose: Not Given Documented By: ROWDY Non-Admin Reason: No Insulin Coverage Levothyroxine Sodium (Levothyroxine Sodium 112 Mcg Tablet) 112 mcg PO DAILY@0600 [facility] Last Admin: 09/15/23 05:14 Dose: 112 mcg Documented By: ANANTH Losartan Potassium (Losartan Potassium 50 Mg Tablet) 100 mg PO DAILY [facility]; Protocol Last Admin: 09/15/23 09:52 Dose: 100 mg Documented By: ROWDY Magnesium Hydroxide (Milk Of Magnesia 30 Ml Oral.Susp) 30 ml PO DAILY PRN PRN Reason: Constipation Melatonin (Melatonin 3 Mg Tablet) 3 mg PO BEDTIME PRN PRN Reason: insomnia Last Admin: 09/14/23 19:46 Dose: 3 mg Documented By: ANANTH Patient Own Medication (Linzess 290 Mcg) 1 each PO DAILY [facility] Last Admin: 09/15/23 09:52 Dose: Not Given Documented By: ROWDY Non-Admin Reason: Patient Refused Omeprazole (Omeprazole 40 Mg Capsule.) 40 mg PO DAILY@0630 [facility] Last Admin: 09/15/23 05:15 Dose: 40 mg Documented By: ANANTH Ondansetron HCl (Ondansetron Hcl 4 Mg/2 Ml Vial) 4 mg IVPUSH Q8H PRN PRN Reason: Nausea and Vomiting Oxycodone HCl (Oxycodone Hcl Immed Release 5 Mg Tablet) 5 mg PO Q4H PRN PRN Reason: Pain, Moderate(Pain Scale 4-6) Last Admin: 09/15/23 11:18 Dose: 5 mg Documented By: ROWDY Oxycodone HCl (Oxycodone Hcl Er 10 Mg Tab.Er.12h) 10 mg PO BID [facility] Last Admin: 09/15/23 09:51 Dose: 10 mg Documented By: ROWDY Polyethylene Glycol (Polyethylene Glycol 3350 17 Gm Powd.Pack) 17 gm PO DAILY [facility] Last Admin: 09/15/23 09:54 Dose: Not Given Documented By: ROWDY Non-Admin Reason: Patient Refused Prazosin HCl (Prazosin Hcl 1 Mg Capsule) 6 mg PO BEDTIME [facility]; Protocol Last Admin: 09/14/23 20:43 Dose: 6 mg Documented By: ANANTH Senna/Docusate Sodium (Sennosides/Docusate Sodium Tablet) 2 tab PO BEDTIME [facility] Last Admin: 09/14/23 20:18 Dose: Not Given Documented By: ANANTH Non-Admin Reason: loose stool Sodium Chloride (0.9 % Sodium Chloride Flush 3 Ml Syringe) 3 ml IVFLUSH QSHIFT [facility] Last Admin: 09/15/23 09:53 Dose: 3 ml Documented By: ROWDY Venlafaxine HCl (Venlafaxine Hcl Er 150 Mg Cap.Er.24h) 150 mg PO DAILY [facility] Last Admin: 09/15/23 09:53 Dose: 150 mg Documented By: ROWDY Vitamin D (Cholecalciferol (Vitamin D3) 25 Mcg Tablet) 50 mcg PO DAILY@0900 [facility] Last Admin: 09/15/23 09:51 Dose: 50 mcg Documented By: ROWDY Labs 09/11/23 06:31 09/09/23 12:13 Labs: Laboratory Results - last 24 hr 09/14/23 09/14/23 09/15/23 16:26 20:07 07:27 POC Glucose 100 241 H 142 H 09/15/23 11:09 POC Glucose 367 H* Assessment and Plan (1) Multiple rib fractures involving four or more ribs: Status: Acute Plan d7 73yo F with DM2, HTN, HLD, GERD, RA, depression fell in [place] 08/26 and was discharged on analgesics + muscle relaxants for rib + clavicle fracture came in with intractable L-sided pain, found to have multiple rib fractures intractable left-sided chest pain due to 2nd through 6th left-sided rib fractures with two fracture components meeting criteria for flail chest/bilateral pleural effusion [L>R] - oxycodone ER 10 mg bid, oxycodone IR 5 mg q4h prn - nebs, incentive spirometry - Thoracic Surgery consulted; nonoperative management with analgesia, pulmonary toilet + IS recommended - PT consulted, STR recommended chronic constipation - continue bowel regimen + Linzess DM2 with hypoglycemia and now hyperglycemia - basal-bolus insulin chronic anemia - H+H stable CAD - continue carvedilol + clopidogrel + atorvastatin HTN; uncontrolled - continue amlodipine + losartan + prazosin + carvedilol mood disorder - continue aripirazole + venlafaxine hypothyroidism - continue LT4 VTE ppx - SCDs dispo - STR In my clinical judgment, the patient requires continued inpatient hospitalization for the following reasons: placement Total time managing care of this patient today: 35 minutes. Quality Stroke Does the patient have a stroke diagnosis?: No VTE Prior VTE?: No VTE Risk Level:: Medical - moderate - high VTE Device Contraindication: N/A - Device Ordered VTE Drug Contraindication: Treatment Not Indicated
[2023-09-15] MEDS: amLODIPine Besylate 10 MG TABLET PO (12:35)
[2023-09-15] MEDS: Insulin Lispro 100 UNIT/ML 3 ML VIAL SUBCUT ×3 (12:36→20:09)
[2023-09-15 16:18] LABS: Glucose, Whole Blood 263 mg/dL (60-115)
[2023-09-15] MEDS: Prazosin HCL 1 MG CAPSULE 6 MG PO (18:47)
[2023-09-15 19:59] LABS: Glucose, Whole Blood 173 mg/dL (60-115)
[2023-09-16] MEDS: oxyCODONE HCl Immed Release 5 MG TABLET PO ×2 (03:52→08:57)
[2023-09-16] MEDS: guaiFEN/Codeine SF 200/20/10ML 10 ML LIQUID PO (03:52)
[2023-09-16 04:00] VITALS: BP 139/63; PULSE 94; RESP 18; TEMP 36; O2SAT 95
[2023-09-16] MEDS: Levothyroxine Sodium 112 MCG TABLET PO (05:34)
[2023-09-16] MEDS: Omeprazole 40 MG CAPSULE.DR PO (05:34)
[2023-09-16 07:10] VITALS: BP 135/63; PULSE 87; RESP 16; TEMP 36.1; O2SAT 94
[2023-09-16 07:18] LABS: Glucose, Whole Blood 189 mg/dL (60-115)
[2023-09-16] MEDS: Albuterol/Iprat 2.5/0.5MG 3 ML AMPUL.NEB INHALE (07:53)
[2023-09-16 07:55] VITALS: PULSE 99; RESP 18; O2SAT 92
[2023-09-16] MEDS: oxyCODONE HCl ER 10 MG TAB.ER.12H PO (08:58)
[2023-09-16] MEDS: Insulin Lispro 100 UNIT/ML 3 ML VIAL SUBCUT ×2 (08:58→12:05)
[2023-09-16] MEDS: Insulin Glargine,Hum.rec.anlog 100 UNIT/ML 10 ML VIAL 21 UNIT SUBCUT (09:10)
[2023-09-16] MEDS: guaiFENesin DM 200/20/10 ML 10 ML SYRUP PO ×2 (09:10→12:05)
[2023-09-16 09:11] VITALS: BP 135/63; PULSE 99
[2023-09-16] MEDS: carvediloL 6.25 MG TABLET PO (09:11)
[2023-09-16] MEDS: Clopidogrel Bisulfate 75 MG TABLET PO (09:11)
[2023-09-16] MEDS: ARIPiprazole 20 MG TABLET PO (09:11)
[2023-09-16] MEDS: polyethylene glycoL 3350 17 GM POWD.PACK PO (09:11)
[2023-09-16] MEDS: Venlafaxine HCl ER 150 MG CAP.ER.24H PO (09:11)
[2023-09-16 09:12] VITALS: BP 135/63
[2023-09-16] MEDS: Gabapentin 100 MG CAPSULE PO (09:12)
[2023-09-16] MEDS: Losartan Potassium 50 MG TABLET 100 MG PO (09:12)
[2023-09-16] MEDS: Cholecalciferol (Vitamin D3) 25 MCG TABLET 50 MCG PO (09:12)
[2023-09-16] MEDS: Atorvastatin Calcium 20 MG TABLET PO (09:12)
[2023-09-16] MEDS: Folic Acid 1 MG TABLET PO (09:12)
[2023-09-16] MEDS: amLODIPine Besylate 10 MG TABLET PO (09:12)
[2023-09-16] MEDS: 0.9 % Sodium Chloride Flush 3 ML SYRINGE IVFLUSH (09:24)
[2023-09-16 11:39] LABS: Glucose, Whole Blood 369 mg/dL (60-115)
--- NOTE | 2023-09-16 11:57 | PM.DS ---
DS: Providers Provider Date of Service: 09/16/23 Date of admission: 09/09/23 18:07 Date of discharge: 09/16/23 Primary care physician: Pascual Darnell MD Consults: 09/09/23 17:36 Consult to Thoracic Surgery Stat Consulting Provider: Louis Haas Reason for consultation: Flail chest Has provider been notified: Yes DS: Diagnosis Discharge Diagnosis (1) Multiple rib fractures involving four or more ribs: Status: Acute (2) Clavicular fracture: Status: Acute (3) Closed flail chest: Status: Acute DS: Summary Hospital Course Hospital Course: From the history and physical by the admitting hospitalist, Maribel Jaffe MD, 09/09/23: 73-year-old Polish-speaking female with past medical history significant for diabetes mellitus on insulin, Rona's disease, hypertension, GERD, rheumatoid arthritis, iron deficiency anemia, history of anxiety depression presented to [facility] emergency room due to left-sided chest discomfort as per patient she was visiting family in [place] she has history of nightmares, on August 26 she turned in high bed and fell sustaining injury to left side of shoulder and chest she was seen in the emergency room and was told to have clavicle and 1 rib fracture she was discharged home on analgesics and muscle relaxers and was recommended outpatient orthopedic follow-up she returned back to her home yesterday and today presented to emergency room due to left-sided chest pain, difficulty sleeping, unable to take deep breaths due to pinching pain and due to worsening cough, she also complained of associated headache, dizziness, feeling chilly her last bowel movement was 2 days ago, denies abdominal pain, no nausea, no vomiting tolerating diet in the emergency room CT chest showed 2nd through 6 left-sided rib fractures with to fracture components each, meeting the criteria for flail chest associated with left pleural thickening adjacent to displaced in inwardly depressed 3rd and 4th lateral rib fractures, patient also noted to have bilateral small effusion left greater than right and a possible 4 mm right upper lobe pulmonary nodule,, 12 month follow-up for high-risk patient is recommended, patient denies history of smoking, denies recurrent trauma or fall ambulates with cane, not on anticoagulation 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 73yo F with DM2, HTN, HLD, GERD, RA, and depression who fell in [place] 08/27/23 and was discharged on analgesics + muscle relaxants for rib + clavicle fracture. She came in with intractable L-sided pain and was found to have multiple rib fractures. Not hypoxic. She was admitted for intractable left-sided chest pain due to 2nd through 6th left-sided rib fractures with two fracure components meeting criteria for flail chest; also bilateral pleural effusion [L>R]. She was admitted to the medical-surgical floor and Thoracic Surgery was consulted. Nonoperative management with pulmonary toilet/IS and analgesia was recommended. She was started on oxycodone ER 10 mg bid with oxycodone IR 5 mg q4 prn; also got IV hydromorphone but last dose was 09/11. She was seen by PT and STR was recommended. Time Attestation Discharge Coordination Time (in mins): 35 Quality: Safe Use of Opioids Does Pt have an Active Cancer Diagnosis on the Problem List?: No Quality: Stroke Does the patient have a stroke diagnosis?: No Physical Exam Vital Signs: Vital Signs: Last Vital Signs Temp 96.9 F 09/16/23 07:10 Pulse 99 09/16/23 09:11 Resp 18 09/16/23 07:55 BP 135/63 09/16/23 09:12 Pulse Ox 94 09/16/23 07:10 O2 Del Method Room Air 09/16/23 07:10 O2 Flow Rate 2 09/11/23 08:00 BMI result Body Mass Index 35.9 Gen: in no acute distress HEENT: sclera anicteric, moist mucus membranes Neck: supple Lungs: clear bilaterally Heart: regular rate and rhythm, no murmurs Abd: soft, non-tender, non-distended Ext: no edema Skin: warm/well-perfused Neuro: alert and oriented x3, no focal findings Psych: appropriate affect DS: Data Data Completed and Pending Completed studies during hospitalization [Text1]: Laboratory Results WBC 13.1 X10*3/uL (4.8-10.8) H 09/11/23 06:31 RBC 3.73 X10*6/uL (4.20-5.50) L 09/11/23 06:31 Hgb 10.6 g/dl (12.0-16.0) L 09/11/23 06:31 Hct 32.8 % (37.0-47.0) L 09/11/23 06:31 MCV 87.9 fL (80.0-98.0) 09/11/23 06:31 MCH 28.4 pg (27.0-33.0) 09/11/23 06:31 MCHC 32.3 g/dl (31.0-35.0) 09/11/23 06:31 RDW 14.3 % (11.0-16.0) 09/11/23 06:31 Plt Count 265 X10*3/uL (160-400) 09/11/23 06:31 MPV 9.9 fL (9.4-12.3) 09/11/23 06:31 Immature Gran % (Auto) 1.0 % (0.0-0.4) H 09/09/23 12:13 Neut % (Auto) 51.1 % (45-73) 09/09/23 12:13 Lymph % (Auto) 25.9 % (20-40) 09/09/23 12:13 [place] % (Auto) 9.2 % (2-11) 09/09/23 12:13 Eos % (Auto) 11.7 % (0-4) H 09/09/23 12:13 Baso % (Auto) 1.1 % (0-2) 09/09/23 12:13 Lymph # (Auto) 2.7 X10*3/uL (1.2-4.9) 09/09/23 12:13 [place] # (Auto) 1.0 X10*3/uL (0.1-1.2) 09/09/23 12:13 Eos # (Auto) 1.2 X10*3/uL (0.0-0.4) H 09/09/23 12:13 Baso # (Auto) 0.1 X10*3/uL (0.0-0.2) 09/09/23 12:13 Abs Immat Gran (auto) 0.10 X10*3/uL (0.00-0.03) H 09/09/23 12:13 Absolute Neuts (auto) 5.3 x10*3/uL (2.0-8.3) 09/09/23 12:13 Absolute Nucleated RBC 0.000 X10*3/uL (0.0-0.012) 09/11/23 06:31 Nucleated RBC % (auto) 0.0 /100WBC (0.0-0.2) 09/11/23 06:31 Sodium 140 mmol/L (135-145) 09/09/23 12:13 Potassium 4.8 mmol/L (3.3-5.1) 09/09/23 12:13 Chloride 108 mmol/L (96-108) 09/09/23 12:13 Carbon Dioxide 23 mmol/L (22-29) 09/09/23 12:13 Anion Gap 14 (12-20) 09/09/23 12:13 BUN 22 mg/dL (9-16) H 09/09/23 12:13 Creatinine 1.19 mg/dL (0.5-1.4) 09/09/23 12:13 Estim Creat Clear Calc 38.7 09/09/23 12:13 Estimated GFR 44 09/09/23 12:13 POC Glucose 369 mg/dL (60-115) H* 09/16/23 11:04 Random Glucose 100 mg/dL (60-115) 09/09/23 12:13 Calcium 9.5 mg/dL (8.4-10.2) 09/09/23 12:13 Magnesium 2.0 mg/dL (1.6-2.6) 09/09/23 12:13 Total Bilirubin 0.2 mg/dL (0.0-1.0) 09/09/23 12:13 Direct Bilirubin < 0.2 mg/dL (0.0-0.5) 09/09/23 12:13 AST 16 U/L (5-31) 09/09/23 12:13 ALT 10 U/L (0-31) 09/09/23 12:13 Alkaline Phosphatase 151 U/L (39-117) H 09/09/23 12:13 Total Protein 6.3 g/dL (6.5-8.0) L 09/09/23 12:13 Albumin 3.5 g/dL (3.5-5.0) 09/09/23 12:13 Urine Color Yellow 09/09/23 13:58 Urine Appearance Cloudy 09/09/23 13:58 Urine pH 5.5 (5.0-9.0) 09/09/23 13:58 Ur Specific [place] 1.010 (1.005-1.025) 09/09/23 13:58 Urine Protein Negative mg/dL (Neg-Trace) 09/09/23 13:58 Urine Glucose (UA) Negative mg/dL (Negative) 09/09/23 13:58 Urine Ketones Negative mg/dL (Negative) 09/09/23 13:58 Urine Blood Negative (Negative) 09/09/23 13:58 Urine Nitrite Positive (Negative) H 09/09/23 13:58 Ur Leukocyte Esterase Small (1+) (Negative) H 09/09/23 13:58 Urine RBC 0-2 /HPF (0-2) 09/09/23 13:58 Urine WBC 21-50 /HPF (0-5) H 09/09/23 13:58 Ur Squamous Epith Cells 6-10 /HPF (0-2) 09/09/23 13:58 Urine Bacteria 4+ (None Seen) 09/09/23 13:58 Hyaline Casts 3-5 /LPF (0-2) 09/09/23 13:58 Influenza Type A (PCR) NEGATIVE (Negative) 09/09/23 11:18 Influenza Type B (PCR) NEGATIVE (Negative) 09/09/23 11:18 RSV RNA Qual (PCR) NEGATIVE (Negative) 09/09/23 11:18 SARS-CoV-2 RNA (RT-PCR) NEGATIVE (Negative) 09/09/23 11:[address] 09/09/23 14:42 IMPRESSION: Second through sixth left-sided rib fractures, with 2 fracture components each, meeting the criteria for flail chest. Associated left pleural thickening adjacent to displaced and inwardly depressed third and fourth lateral rib fractures. Bilateral small effusions, left greater than right. Possible 4 mm right upper lobe pulmonary nodule, study limited by respiratory motion. Per Fleischner criteria, in high risk patients, optional CT at 12 months may be obtained. If stable at 12 months, no further follow-up recommended. In low-risk patients, no routine follow-up necessarily required. Chest X-Ray 09/12/23 13:57 IMPRESSION: Multiple rib fractures and pleural thickening on the left Labs on day of discharge: Discharge Plan Discharge Anticipated Discharge Date/Time: 09/16/23 11:53 Patient Disposition: Xfer SNF Discharge Diagnosis: multiple rib fractures clavicle fracture Referrals: [facility] care[facility] [Other] - 1 Week Pascual Darnell MD [Primary Care Provider] - 1 Week Louis Haas MD [Physician] - 1 Week Discharge Medications: New acetaminophen 325 mg Tablet 650 mg PO Q6H PRN (Reason: Pain, Mild (Pain Scale 1-3)) Qty: 1 0RF oxycodone 5 mg Tablet 5 mg PO Q4H PRN (Reason: Pain, Moderate(Pain Scale 4-6)) Qty: 18 0RF Rx Instructions: Partial Fill upon patient request. oxycodone [OxyContin] 10 mg Tablet,Oral Only,Ext.Rel.12 Hr 10 mg PO BID Qty: 6 0RF Rx Instructions: Partial Fill upon patient request. Continued (DME) insulin syringe-needle U-100 [BD Insulin Syringe Ultra-Fine] 0.3 mL 31 gauge x 5/16 syringe See Rx Instructions .ROUTE .MEDSUPPLY Qty: 100 0RF Rx Instructions: As directed 3 times per day (DME) blood-glucose meter [FreeStyle Lite Meter] Kit See Rx Instructions .ROUTE .MEDSUPPLY Qty: 1 0RF Rx Instructions: As directed (DME) pen needle, diabetic [BD Cherelle 2nd Gen Pen Needle] 32 gauge x 5/32 needle See Rx Instructions .MEDSUPPLY Qty: 200 7RF Rx Instructions: 5 times a day clopidogrel 75 mg tablet 75 mg PO QAM Qty: 30 7RF Tresiba FlexTouch U-100 100 unit/mL (3 mL) insulin pen 30 unit subcut DAILY Qty: 15 3RF bisacodyl 5 mg tablet,delayed release (DR/EC) 10 mg PO BEDTIME Qty: 60 6RF (DME) FreeStyle Lite Strips Strip See Rx Instructions .ROUTE .COMPLEX Qty: 200 11RF Dose Instruction: TEST BLOOD SUGAR 8 TIMES EVERY DAY Rx Instructions: TEST BLOOD SUGAR 8 TIMES EVERY DAY calcium citrate 200 mg (950 mg) tablet 400 mg PO BID Qty: 120 4RF cholecalciferol (vitamin D3) [Vitamin D3] 50 mcg (2,000 unit) capsule 50 mcg PO QAM Qty: 30 4RF levothyroxine 112 mcg tablet 112 mcg PO DAILY Qty: 30 5RF (DME) V-GO 20 Device See Rx Instructions .Route Qty: 30 4RF Rx Instructions: As directed use 1 VGO every 24 hrs folic acid 1 mg Tablet 1 mg PO DAILY Qty: 90 4RF clonazepam 0.5 mg tablet 1 tab PO Q8H PRN (Reason: anxiety) methocarbamol 500 mg tablet Enbrel SureClick 50 mg/mL (1 mL) pen injector 50 mg SUBCUT Q7D Fiasp FlexTouch U-100 Insulin 100 unit/mL (3 mL) insulin pen 2 - 14 sliding scale dose subcut QIDACHS albuterol sulfate 90 mcg/actuation HFA aerosol inhaler 2 puff inhalation Q4-6H PRN (Reason: shortness of breath or wheezing) Qty: 8.5 0RF ipratropium-albuterol 0.5 mg-3 mg(2.5 mg base)/3 mL Solution For Nebulization 3 ml inhalation RQ4H WHILE AWAKE 7 Days Qty: 180 2RF albuterol sulfate 2.5 mg /3 mL (0.083 %) Solution For Nebulization 2.5 mg inhalation Q3H PRN (Reason: sob) Qty: 180 2RF (DME) nebulizers [facility] See Rx Instructions .Route Qty: 1 0RF Rx Instructions: As directed venlafaxine [Effexor XR] 150 mg capsule,extended release 24hr 150 mg PO DAILY hydroxyzine HCl 10 mg tablet 10 mg PO Q8H PRN (Reason: Anxiety) amlodipine 10 mg tablet 10 mg PO DAILY prazosin 2 mg capsule 6 mg PO BEDTIME (DME) Dexcom G6 House Mother Misc See Rx Instructions .Route Rx Instructions: As directed aripiprazole 20 mg tablet 20 mg PO DAILY losartan 100 mg tablet 100 mg PO DAILY gabapentin 100 mg capsule 100 mg PO BID melatonin 3 mg tablet 3 mg PO BEDTIME atorvastatin 20 mg tablet 20 mg PO DAILY carvedilol 6.25 mg tablet 6.25 mg PO BID Linzess 290 mcg capsule 290 mcg PO QAM Qty: 30 6RF esomeprazole magnesium 40 mg capsule,delayed release(DR/EC) 40 mg PO DAILY Qty: 30 6RF Discharge Orders: Discharge Order (Routine); Ordered 09/16/23 Ordered By: Smooth Fam Diet: Advance to usual diet Activity on Discharge: No heavy lifting Stand Alone Forms: Patient Portal Discharge page Print Language: Polish Care Plan Goals: recovery from fall/rib fractures Health Concerns: multiple rib fractures clavicle fracture Plan of Treatment: incentive spirometry q1h while awake pain control: acetaminophen, oxycodone IR + ER; wean over next 2 wk short-term rehabilitation Assessment: See Discharge Summary.
--- NOTE | 2023-09-16 11:58 | MHC.CM.PN ---
pt to [facility] TODAYAT 230
[2023-09-16] MEDS: clonazePAM 0.5 MG TABLET PO (12:08)
--- NOTE | 2023-09-16 12:31 | MHC.CM.PN ---
LEFT MESSAGE FOR YOUSIF FRY DC
[2023-09-16] MEDS: Cyanocobalamin (Vitamin B-12) 1,000 MCG/ML VIAL 1000 MCG IM (13:18)
[2023-09-16 14:49] LABS: Glucose, Whole Blood 240 mg/dL (60-115)
== END 2023-09-16 14:59 | disposition skilled nursing facility (03) | DRG 185 ==
LOC: HO.ED 16:51 → HO.EDOVER 18:20 → HO.IMC 09-10 19:04 → HO.S3 09-12 12:42
PROVIDERS: Physician Assistant; Admitting Provider Hospitalist; Emergency Provider Emergency Medicine; PCP Internal Medicine; Visit Provider Family Medicine
DX: S22.5XXA Flail chest, initial encounter for closed fracture (principal); S42.002A Fracture of unspecified part of left clavicle, initial encounter for closed fracture; W19.XXXA Unspecified fall, initial encounter; M06.9 Rheumatoid arthritis, unspecified; I10 Essential (primary) hypertension; E78.5 Hyperlipidemia, unspecified; F41.9 Anxiety disorder, unspecified; K59.09 Other constipation; F32.A Depression, unspecified; D64.9 Anemia, unspecified; E66.8 Other obesity; E06.3 Autoimmune thyroiditis; I25.10 Atherosclerotic heart disease of native coronary artery without angina pectoris; E11.649 Type 2 diabetes mellitus with hypoglycemia without coma; Z98.84 Bariatric surgery status; Z20.822 Contact with and (suspected) exposure to COVID-19; Z68.36 Body mass index [BMI] 36.0-36.9, adult; Z79.02 Long term (current) use of antithrombotics/antiplatelets; Z79.4 Long term (current) use of insulin; Z79.890 Hormone replacement therapy; Z79.899 Other long term (current) drug therapy
CPT/HCPCS: 0241U; 36415; 71045; 71046; 71260; 80048; 80076; 81001; 82947; 83735; 85025; 85027; 87086; 87088; 87186; 94640; 97110; 97162; 97166; 97530; 97535; 99285; J1170; J2270; J2405; J3420; Q9967

== ENCOUNTER → 2023-09-09 18:07 | Outpatient (BNV) | payer OTHER, SELFPAY | PROVIDERS: Admitting Provider Hospitalist; Emergency Provider Emergency Medicine; PCP Internal Medicine; Visit Provider Physician Assistant Surgical | DX: S22.49XA Multiple fractures of ribs, unspecified side, initial encounter for closed fracture (principal); S42.009A Fracture of unspecified part of unspecified clavicle, initial encounter for closed fracture; S22.5XXA Flail chest, initial encounter for closed fracture | CPT/HCPCS: 99223; 99232 ==

== ENCOUNTER → 2023-09-09 18:07 | Outpatient (BNV) | payer OTHER, SELFPAY | PROVIDERS: Admitting Provider Hospitalist; Emergency Provider Emergency Medicine; PCP Internal Medicine; Visit Provider Hospitalist | DX: S22.42XA Multiple fractures of ribs, left side, initial encounter for closed fracture (principal); S42.009A Fracture of unspecified part of unspecified clavicle, initial encounter for closed fracture; S22.5XXA Flail chest, initial encounter for closed fracture | CPT/HCPCS: 99223; 99232; 99233; 99239 ==

== ENCOUNTER 2023-10-16 09:53 | Outpatient (AMB) | payer OTHER, SELFPAY ==
--- NOTE | 2023-10-16 09:54 | A.OFFVIS_ITS ---
Vital Signs 10/16/23 09:57 Height 4 ft 11 in Weight 160 lb 14.999 oz BMI 32.5 BP 128/74 Blood Pressure Location Rt brachial Position Sitting Pulse 83 Pulse Source Pulse Oximeter Intake Visit Reasons: f/u Type 1 DM and hypothyroidism-confirmed Intake Note: Patient present today to follow up on Type 1 Diabetes Mellitus. Last seen by Dr. 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 A1C is 8% in the office today down from 8.8%. She does report a history of hypoglycemic coma in the past. She has had a few recent lows due to going longer periods of time without eating. She was recently hospitalized for multiple rib fractures after a fall. She is followed by Rheumatology. A work up has been done and she will be stated on in office injection for treatment. She has not been able to use her Dexom G7 as multiple sensors failed. She was given several in the office today and will start back on this. At her last visit, a V-go was ordered but she did not receive this and is interested in starting. She has been checking her glucose 3-4 times daily. Morning readings have run between 89- 158 with one reading of 325, and one low of 77, She had one low later in the day to 53 after skipping lunch. She has been on on Levothyroxine 112 mcg daily. 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 Scalp folliculitis, fibromyalgia, microcytic anemia pernicious depression. Bariatric surgery 12/09/2016. 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 Tang, Rheumatology [facility] Medical History (Updated 10/13/23 @ 12:29 by Briseida Rocha MD) Osteoporosis Hyperlipidemia (04/21/1959) Depressive disorder (04/21/1959) Nutritional anemia (04/21/1959) Shortness of breath Hypothyroidism (04/21/1959) Anemia Chronic gastritis Heart palpitations NSTEMI (non-ST elevated myocardial infarction) Recurrent falls (12/04/11) Iron deficiency anemia (04/21/1959) Fibromyositis (04/21/1959) Eczema (04/21/1959) High risk medication use Hepatitis C antibody positive in blood Screening for osteoporosis Screening for viral disease Joint swelling Overweight (BMI 25.0-29.9) Neck pain Swelling of knee joint, right Intra-abdominal abscess Diabetes Elevated liver function tests Intestinal malabsorption following gastrectomy Obesity (BMI 30-39.9) 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 Hypertension Cholecystitis Hyperlipidemia, unspecified Essential hypertension Atherosclerotic cardiovascular disease Fibromyalgia Folliculitis Anxiety Depression History of myocardial infarction Diabetes type 1, uncontrolled Hyperparathyroidism due to vitamin D deficiency Dyslipidemia Rona's disease Hypothyroidism Surgical History History of bypass gastroenterostomy (11/13/17) H/O gastric bypass S/P laparoscopic cholecystectomy Status post gastric bypass for obesity History of esophagogastroduodenoscopy (EGD) H/O colonoscopy History of laparoscopic cholecystectomy History of bladder suspension procedure Status post laser cataract surgery of both eyes Hx of appendectomy Family History Father No problems noted. Mother CVA (cerebral vascular accident) Sister Hypertension Brother Hypertension Liver cancer Social History Household Members: None Housing: Apartment Are you a primary healthcare science specialist to a significant other at home: No Do you presently have visiting nurse or other home services: Yes Unable to assess alcohol history related to: Unable to respond Alcohol intake: never Patient Tobacco Use Status: Never used Tobacco service: No Current occupational status: disabled Current occupation: right hand dominant Physical Exam Vital Signs: Last Vital Signs Pulse 83 10/16/23 09:57 BP 128/74 10/16/23 09:57 BMI result Body Mass Index 32.5 Const General: no acute distress Nutritional Appearance: average body habitus Orientation/consciousness: oriented to person Limitations: ambulation with cane Neck Neck: Yes normal visual inspection Thyroid: Thyroid normal Resp Effort & Inspection: normal respiratory effort Cardio Jugular venous distension: no JVD Rate: regular rate Rhythm: regular rhythm Heart sounds: S1 normal heart sound present Neuro General: oriented to person Extrem Other: Visual exam of foot performed. No ulcerations or open lesions. + elongation and thickening or the nail beds, no callouses. Sensation intact to monofilament exam. Vibratory sensation is normal with 128 Hz tuning fork. Results AMB Hemoglobin A1c AMB Hemoglobin A1c 8.0 % Last Edit by RADHA Tao on 10/16/23 10:18 Results Reviewed Results Reviewed: Laboratory Last Values Glucose (Clinic) 87 mg/dL (60-115) 10/16/23 10:38 Hgb A1c (Clinic) 8.0 % (4.0-6.0) H 10/16/23 09:55 [facility] [place] [address] Mammography Report Signed Patient: Brandie Santana MR#: [id number] : 1950 Acct:[id number] Age/Sex: 73 / F ADM Date: 06/05/23 Loc: [facility] Attending Dr: Briseida Rocha MD Ordering Physician: Briseida Rocha MD Results: Date of Service: 06/05/23 Follow Up: Procedure(s): XR DEXA axial skeleton Accession Number(s): [id number] cc: Pascual Darnell MD; Briseida Rocha MD~ EXAMINATION: BONE DENSITOMETRY CLINICAL INDICATION: Age-related osteoporosis without current pathological fracture. COMPARISON: Baseline BD dated 03/24/2015. TECHNIQUE: Using a [employer] DXA System (software version: 13.1) manufactured by [employer], dual-energy x-ray absorptiometry was performed of the lumbar spine and left hip. The images are of good technical quality. Summary results are attached. FINDINGS: LEFT FEMUR, NECK: Current: BMD 0.506 g/cm2, Z-score -2.1, T-score -3.8, osteoporosis. Baseline: BMD 0.625 g/cm2. LEFT FEMUR, TOTAL: Current: BMD 0.494 g/cm2, Z-score -2.6, T-score -4.1, osteoporosis, 27.2% decrease from baseline (<5% change is not significant). Baseline: BMD 0.679 g/cm2. AP SPINE L1-L4: Current: BMD 0.745 g/cm2, Z-score -2.1, T-score -3.6, osteoporosis, 13.7% decrease from baseline (<5% change is not significant). Baseline: BMD 0.863 g/cm2. IDENTIFIED RISK FACTORS: Early menopause, recurrent falls, rheumatoid arthritis, secondary osteoporosis (type 1 diabetes, hyperthyroidism, partial gastrectomy). HISTORY OF FRACTURE: None listed. MEDICATIONS: Calcium or multivitamin. Vitamin D. MM/XR DEXA axial skeleton IMPRESSION: 1. DIAGNOSIS: Osteoporosis based on the lowest T-score value of -4.1 in the total femur applying World Health Organization criteria. Assessment & Plan Assessment & Plan (1) Diabetes type 1, uncontrolled: Code(s): E10.65 - Type 1 diabetes mellitus with hyperglycemia Category: Medical Qualifiers: Coma presence: without coma Glycemic state: with hypoglycemia Qualified Code(s): E10.649 - Type 1 diabetes mellitus with hypoglycemia without coma Plan: A1C improved to 8%. May not be able to achieve a lower target with this patient due to history of hypoglycemia coma. Will reduce Tresiba to 26 units and lower insulin if small meal/shake. Will reorder V-Go and she was given two G7's to carry her through until her prescription can be renewed. We discussed insulin pumps and she felt she may not be able to handle this. V-Go would be a good alternative. Tresiba 26 units Fiasp: 150-200 mg 12 units 201-250 mg 13 units 251-300 mg/dL 14 units 301-350 mg/dL 15 units 351-400 mg por dL 16 units > 400 mg por dL 17 units For a light meal or shake she is to take only 8 units Meal spacing, rule of 15's, foot care reviewed (2) Osteoporosis: Comment: DEXA 05/2023 Left femur neck T-score-3.8 Left femur total-4.1 L-spine T-score -3.6 Code(s): M81.0 - Age-related osteoporosis without current pathological fracture Category: Medical Qualifiers: Osteoporosis type: age-related Presence of current pathological fracture: without current pathological fracture Qualified Code(s): M81.0 - Age- related osteoporosis without current pathological fracture Plan: Patient will be starting injections through Rheumatology. Labs ordered. Orders: Orders AMB Hemoglobin A1c Today E11.9 - Type 2 diabetes mellitus without complications Medications: New nut.tx.gluc.intol,lac-free,soy (Glucerna oral liquid) 1 ea PO BID 28 days 2,880 mL 2RF E10.649 - Type 1 diabetes mellitus with hypoglycemia without coma Refilled sub-q insulin device, 20 unit (V-GO 20 device) As directed use 1 VGO every 24 hrs 30 ea 4RF Coding Level of Care Code Est Pt Level 4 (14145) Complex EM visit Add On G2211 Diagnoses Uncontrolled type 1 diabetes mellitus with hypoglycemia without coma E10.649 Coma presence: without coma Glycemic state: with hypoglycemia Age-related osteoporosis without current pathological fracture M81.0 Osteoporosis type: age-related Presence of current pathological fracture: without current pathological fracture Time Spent (min) 60 Comment 60 min spent in chart review, diagnostic test review face to face w patient and document
[2023-10-16 09:57] VITALS: BP 128/74; PULSE 83; BMI 32.5
[2023-10-16 10:13] LABS: Glucose, Whole Blood 79 mg/dL (60-115)
[2023-10-16 10:41] LABS: Glucose, Whole Blood 87 mg/dL (60-115)
== END 2023-10-16 10:50 | disposition home or self-care (01) ==
PROVIDERS: PCP Internal Medicine; Visit Provider Nurse Practitioner Adult Health
DX: E10.649 Type 1 diabetes mellitus with hypoglycemia without coma (principal); M81.0 Age-related osteoporosis without current pathological fracture; E11.9 Type 2 diabetes mellitus without complications
CPT/HCPCS: 99215; G2211

== ENCOUNTER → 2023-10-16 09:53 | Outpatient (BNVA) | payer OTHER, SELFPAY | PROVIDERS: PCP Internal Medicine; Visit Provider Nurse Practitioner Adult Health | DX: E10.649 Type 1 diabetes mellitus with hypoglycemia without coma (principal); M81.0 Age-related osteoporosis without current pathological fracture; Z79.4 Long term (current) use of insulin | CPT/HCPCS: 82947; 83036; 99212 ==

== ENCOUNTER 2023-10-16 11:19 | Outpatient (REF) | payer OTHER, SELFPAY ==
[2023-10-16 11:42] LABS: MANUAL DIFF FLAG NO
[2023-10-16 12:07] LABS: Basophils Absolute Auto 0.1 X10*3/uL (0.0-0.2); Basophils Percent Auto 0.7 % (0-2); Eosinophils Absolute Auto 1.2 X10*3/uL (0.0-0.4); Eosinophils Percent Auto 13.8 % (0-4); Hematocrit 33.6 % (37.0-47.0); Hemoglobin 10.5 g/dl (12.0-16.0); Imm Gran Abs Auto 0.04 X10*3/uL (0.00-0.03); Imm Gran Pct Auto 0.5 % (0.0-0.4); Lymphocytes Percent Auto 35.2 % (20-40); Mean Corpuscular HGB Conc 31.3 g/dl (31.0-35.0); Mean Corpuscular Hemoglobin 27.6 pg (27.0-33.0); Mean Corpuscular Volume 88.2 fL (80.0-98.0); Mean Platelet Volume 10.9 fL (9.4-12.3); Monocytes Absolute Auto 0.9 X10*3/uL (0.1-1.2); Monocytes Percent Auto 10.5 % (2-11); Neutrophils Absolute Auto 3.3 x10*3/uL (2.0-8.3); Neutrophils Percent Auto 39.3 % (45-73); Platelet Count 207 X10*3/uL (160-400); Red Blood Count 3.81 X10*6/uL (4.20-5.50); White Blood Count 8.4 X10*3/uL (4.8-10.8)
[2023-10-16 12:42] LABS: Erythrocyte Sedimentation Rate 17 MM/HR (0-20)
[2023-10-16 12:45] LABS: Parathyroid Hormone Intact 55.2 pg/mL (8.7-77.1)
[2023-10-16 12:51] LABS: Alanine Aminotransferase 23 U/L (0-31); Albumin Level 3.8 g/dL (3.5-5.0); Alkaline Phosphatase 147 U/L (39-117); Anion Gap 12 (12-20); Aspartate Amino Transferase 24 U/L (5-31); Bilirubin Total 0.2 mg/dL (0.0-1.0); Blood Urea Nitrogen 29 mg/dL (9-16); C Reactive Protein 0.58 mg/dL (< or = 0.50); Calcium 9.7 mg/dL (8.4-10.2); Carbon Dioxide 29 mmol/L (22-29); Chloride 102 mmol/L (96-108); Estimated Glomerular Filt Rate 46; Glucose Random 81 mg/dL (60-115); Potassium 4.5 mmol/L (3.3-5.1); Sodium 138 mmol/L (135-145); Total Protein 6.5 g/dL (6.5-8.0)
[2023-10-16 12:59] LABS: TSH reflex Free T4 0.44 uIU/mL (0.32-4.0); Vitamin D 25-OH Total 52.7 ng/mL (>30)
== END 2023-10-16 11:20 | disposition home or self-care (01) ==
LOC: HO.LAB 11:19
PROVIDERS: PCP Internal Medicine; Visit Provider Student in an Organized Health Care Education/Training Program
DX: M05.9 Rheumatoid arthritis with rheumatoid factor, unspecified (principal); M81.0 Age-related osteoporosis without current pathological fracture; E11.9 Type 2 diabetes mellitus without complications; Z13.21 Encounter for screening for nutritional disorder
CPT/HCPCS: 36415; 80053; 82306; 83970; 84100; 84443; 85025; 85652; 86140

== ENCOUNTER 2023-10-27 08:19 | Emergency (ER) | payer OTHER, SELFPAY ==
[2023-10-27 08:28] VITALS: PULSE 67; RESP 17; TEMP 36.6; O2SAT 96; BMI 25.7
--- NOTE | 2023-10-27 08:30 | ECG_ITS ---
Test Reason : HYPOGLYCEMIC Blood Pressure : / mmHG Vent. Rate : 072 BPM Atrial Rate : 072 BPM P-R Int : 136 ms QRS Dur : 088 ms QT Int : 412 ms P-R-T Axes : 061 063 071 degrees QTc Int : 451 ms Normal sinus rhythm Normal ECG When compared with ECG of 16-APR-2023 11:42, Nonspecific T wave abnormality no longer evident in Lateral leads QT has lengthened Referred By: Viral Mccollum Electronically Signed By:Jose Oden
[2023-10-27] MEDS: Dextrose 10 % 250 ML 750 ML IV (08:45)
[2023-10-27] MEDS: glucagon HCL 1 MG VIAL IM (08:45)
--- NOTE | 2023-10-27 08:50 | ED.GENADULT ---
HPI - General Adult General Chief complaint: General Medical Stated complaint: AMS/LOW BS 37,65 AFTER GLUC BY FAM PER EMS Time Seen by Provider: 10/27/23 08:26 Source: EMS Mode of arrival: EMS History of Present Illness HPI narrative: This is a 73 years old patient brought in by the paramedics because of altered mental status she was found to be hypoglycemic in the field with a blood sugar of 34 she arrived lethargic unable to give any history. Onset (ago): hour(s) (1) Radiation: non-radiation Severity: mild Exacerbating factors: none Related Data Home Medications ?Medication ?Instructions ?Recorded ?Confirmed venlafaxine 150 mg 150 mg PO DAILY 01/28/20 09/09/23 capsule,extended release 24 hr (Effexor XR) hydroxyzine HCl 10 mg tablet 10 mg PO Q8H PRN Anxiety 02/22/20 09/09/23 clonazepam 0.5 mg tablet 1 tab PO Q8H PRN anxiety 01/02/21 09/09/23 blood-glucose meter,continuous 01/11/22 05/12/23 (Dexcom G6 Superintendent [employer]) amlodipine 10 mg tablet 10 mg PO DAILY 05/14/22 09/09/23 prazosin 2 mg capsule 6 mg PO BEDTIME 05/14/22 09/09/23 aripiprazole 20 mg tablet 20 mg PO DAILY 01/10/23 09/09/23 losartan 100 mg tablet 100 mg PO DAILY 07/30/23 09/09/23 atorvastatin 20 mg tablet 20 mg PO DAILY 08/21/23 09/09/23 gabapentin 100 mg capsule 100 mg PO BID 08/21/23 09/09/23 melatonin 3 mg tablet 3 mg PO BEDTIME 08/21/23 09/09/23 etanercept 50 mg/mL (1 mL) 50 mg subcut Q7D 09/09/23 09/09/23 subcutaneous pen injector (Enbrel SureClick) insulin aspart 2 - 14 sliding scale dose subcut 09/09/23 09/09/23 (niacinamide)(U-100) 100 unit/mL(3 QIDACHS mL) subcutaneous pen (Fiasp FlexTouch U-100 Insulin) methocarbamol 500 mg tablet mg 09/09/23 linaclotide 290 mcg capsule 290 mcg PO QAM PRN 10/16/23 (Linzess) Previous Rx's ?Medication ?Instructions ?Recorded insulin syringe-needle U-100 0.3 #100 ea 06/13/20 mL 31 gauge x 5/16 (BD Insulin Syringe Ultra-Fine) blood-glucose meter (FreeStyle #1 ea 05/20/22 Lite Meter kit) BD Cherelle 2nd Gen Pen Needle 32 #200 ea 10/16/22 gauge x 5/32 (pen needle, diabetic) insulin degludec 100 unit/mL (3 30 unit (0.3 mL) subcut DAILY #15 03/17/23 mL) subcutaneous pen (Tresiba mL FlexTouch U-100 insulin) albuterol sulfate 90 mcg/actuation 2 puff inhalation Q4-6H PRN 04/10/23 aerosol inhaler shortness of breath or wheezing #8.5 grams albuterol sulfate 2.5 mg/3 mL 2.5 mg (3 mL) inhalation Q3H PRN 04/18/23 (0.083 %) solution for nebulization sob #180 mL ipratropium 0.5 mg-albuterol 3 mg 3 ml inhalation RQ4H WHILE AWAKE 7 04/18/23 (2.5 mg base)/3 mL nebulization days #180 mL soln nebulizers #1 ea 04/18/23 bisacodyl 5 mg tablet,delayed 10 mg (2 x 5 mg) PO BEDTIME #60 04/24/23 release tabs blood sugar diagnostic (FreeStyle #200 strips 04/29/23 Lite Strips) folic acid 1 mg tablet 1 mg PO DAILY #90 tabs 05/28/23 cholecalciferol (vitamin D3) 50 50 mcg PO QAM #30 caps 06/20/23 mcg (2,000 unit) capsule (Vitamin D3) levothyroxine 112 mcg tablet 112 mcg PO DAILY #30 tabs 07/02/23 esomeprazole magnesium 40 mg 40 mg PO DAILY #30 caps 08/21/23 capsule,delayed release acetaminophen 325 mg tablet 650 mg (2 x 325 mg) PO Q6H PRN 09/16/23 Pain, Mild (Pain Scale 1-3) #1 tab oxycodone 10 mg tablet,crush 10 mg PO BID #6 tabs 09/16/23 resistant,extended release 12 hr (OxyContin) oxycodone 5 mg tablet 5 mg PO Q4H PRN Pain, 09/16/23 Moderate(Pain Scale 4-6) #18 tabs calcium citrate 200 mg (950 mg) 400 mg (2 x 200 mg (950 mg)) PO 10/16/23 tablet BID 30 days #120 tabs clopidogrel 75 mg tablet 75 mg PO QAM #30 tabs 10/16/23 nut.tx.gluc.intol,lac-free,soy 1 ea PO BID 28 days #2,880 mL 10/16/23 (Glucerna oral liquid) sub-q insulin device, 20 unit #30 ea 10/16/23 (V-GO 20 device) carvedilol 6.25 mg tablet 6.25 mg PO BID #60 tabs 10/22/23 Allergies Allergy/AdvReac Type Severity Reaction Status Date / Time lorazepam [LORAZEPAM] Allergy Severe DELIRIUM Verified 10/27/23 08:31 celecoxib [From Celebrex] Allergy Intermediate ITCHING Verified 10/27/23 08:31 tramadol [TRAMADOL] Allergy Intermediate ITCHING Verified 10/27/23 08:31 zolpidem [Ambien] Allergy Unknown unknown Verified 10/27/23 08:31 Review of Systems Review of Systems: Yes Unobtainable due to mental status PMFSH Past Medical History Medical History (Updated 10/27/23 @ 09:01 by Viral Mccollum MD) Osteoporosis Hyperlipidemia (04/21/1959) Depressive disorder (04/21/1959) Nutritional anemia (04/21/1959) Shortness of breath Hypothyroidism (04/21/1959) Anemia Chronic gastritis Heart palpitations NSTEMI (non-ST elevated myocardial infarction) Recurrent falls (12/04/11) Iron deficiency anemia (04/21/1959) Fibromyositis (04/21/1959) Eczema (04/21/1959) High risk medication use Hepatitis C antibody positive in blood Screening for osteoporosis Screening for viral disease Joint swelling Overweight (BMI 25.0-29.9) Neck pain Swelling of knee joint, right Intra-abdominal abscess Diabetes Elevated liver function tests Intestinal malabsorption following gastrectomy Obesity (BMI 30-39.9) 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 Hypertension Cholecystitis Hyperlipidemia, unspecified Essential hypertension Atherosclerotic cardiovascular disease Fibromyalgia Folliculitis Anxiety Depression History of myocardial infarction Diabetes type 1, uncontrolled Hyperparathyroidism due to vitamin D deficiency Dyslipidemia Rona's disease Hypothyroidism Surgical History History of bypass gastroenterostomy (11/13/17) H/O gastric bypass S/P laparoscopic cholecystectomy Status post gastric bypass for obesity History of esophagogastroduodenoscopy (EGD) H/O colonoscopy History of laparoscopic cholecystectomy History of bladder suspension procedure Status post laser cataract surgery of both eyes Hx of appendectomy Family History Family History Father No problems noted. Mother CVA (cerebral vascular accident) Sister Hypertension Brother Hypertension Liver cancer Social History Social History Household Members: None Housing: Apartment Are you a primary childcare attendant to a significant other at home: No Do you presently have visiting nurse or other home services: Yes Unable to assess alcohol history related to: Unable to respond Alcohol intake: never Patient Tobacco Use Status: Never used Tobacco Smoked in Last 30 Days: No Use of substances other than those prescribed or required for medical reasons: No Advance Directives: No Advance Directives Information Provided: Yes service: No Current occupational status: disabled Current occupation: right hand dominant Physical Exam ED Vital Signs: Vital Signs - 24 hr 10/27/23 08:28 10/27/23 09:42 10/27/23 11:15 Temperature 97.9 F 94.6 F L 97.5 F Pulse Rate 67 Respiratory Rate 17 Blood Pressure Pulse Oximetry 96 Oxygen Delivery Method Room Air 10/27/23 11:45 Temperature 97.6 F Pulse Rate 88 Respiratory Rate 16 Blood Pressure 156/72 H Pulse Oximetry 100 Oxygen Delivery Method Room Air BMI result Body Mass Index 25.7 Const Other: Patient is lethargic Nutritional Appearance: average body habitus [facility] Other: Examination the head face nose eyes no sign of trauma Mouth: Normal oral and palatal mucosa present Neck Neck: Yes normal visual inspection Chest Chest palpation & inspection: normal inspection of the chest Resp Effort & Inspection: normal respiratory effort Cardio Jugular venous distension: no JVD Rate: regular rate Rhythm: regular rhythm GI Inspection: Yes normal to inspection Palpation (GI): Soft to palpation Auscultation: normal bowel sounds Skin General skin exam: no rashes or lesions noted Trauma: no lacerations or abrasions Extrem General: Yes normal to inspection and Yes full ROM Course Reevaluation(s) Reevaluation #1: Patient is doing much better at this time she is awake and alert she 8 blood sugar back to normal vital signs stable, spoke with the sister Time: 13:49 Reevaluation #2: Patient was seen also by the machine adjuster leader case trim CONSUELO bettencourt, I spoke with the patient's sister patient MULTIMEDIA PRODUCTION ASSISTANT, this time will discharge the patient home patient will go home with the MULTIMEDIA PRODUCTION ASSISTANT Time: 14:07 Medications Administered Generic Name Dose Route Start Last Admin Trade Name Freq PRN Reason Stop Dose Admin Dextrose 250 mls @ 750 mls/hr 10/27/23 08:54 10/27/23 10:24 D10 IV Infused Q15M PRN Infusion per Hypoglycemia Standing Ord. Discontinued Medications Generic Name Dose Route Start Last Admin Trade Name Freq PRN Reason Stop Dose Admin Glucagon 1 mg 10/27/23 08:58 10/27/23 08:45 Glucagon Hcl 1 Mg Vial IM 10/27/23 08:59 1 mg ONCE ONE Administration Procedures EJ/Peripheral Line Arm L: Time Out Performed: Yes Skin Cleansed in Sterile Fashion: Yes Size (gauge): 20 IV Secured and Dressing Applied: Yes Patient Tolerated Procedure: well Additional Comments: I was asked by the nurse to place an IV difficult IV access, under ultrasound-guided cannulated left brachial vein with a 20 gauge catheter Medical Decision Making Medical Decision Making [facility] Narrative: Patient presented with altered mental status will get labs EKG reassess Differential Diagnosis Differential Diagnoses: The differential diagnosis associated with the presentation includes Hypoglycemia/UTI/electrolyte imbalance Admission/Observation Consideration of admission/observation: Escalation of care including admission/observation considered Lab Data [facility] Lab Attestation statement: I reviewed the patient's lab results. 10/27/23 08:45 10/27/23 08:45 Labs: Lab Results 10/27/23 10/27/23 10/27/23 Range/Units 08:24 08:27 08:39 WBC (4.8-10.8) X10*3/uL RBC (4.20-5.50) X10*6/uL Hgb (12.0-16.0) g/dl Hct (37.0-47.0) % MCV (80.0-98.0) fL MCH (27.0-33.0) pg MCHC (31.0-35.0) g/dl RDW (11.0-16.0) % Plt Count (160-400) X10*3/uL MPV (9.4-12.3) fL Immature Gran % (Auto) (0.0-0.4) % Neut % (Auto) (45-73) % Lymph % (Auto) (20-40) % [place] % (Auto) (2-11) % Eos % (Auto) (0-4) % Baso % (Auto) (0-2) % Lymph # (Auto) (1.2-4.9) X10*3/uL [place] # (Auto) (0.1-1.2) X10*3/uL Eos # (Auto) (0.0-0.4) X10*3/uL Baso # (Auto) (0.0-0.2) X10*3/uL Abs Immat Gran (auto) (0.00-0.03) X10*3/uL Absolute Neuts (auto) (2.0-8.3) x10*3/uL Absolute Nucleated RBC (0.0-0.012) X10*3/uL Nucleated RBC % (auto) (0.0-0.2) /100WBC Sodium (135-145) mmol/L Potassium (3.3-5.1) mmol/L Chloride (96-108) mmol/L Carbon Dioxide (22-29) mmol/L Anion Gap (12-20) BUN (9-16) mg/dL Creatinine (0.5-1.4) mg/dL Estim Creat Clear Calc Estimated GFR POC Glucose 28 L* 34 L* 34 L* (60-115) mg/dL Random Glucose (60-115) mg/dL Calcium (8.4-10.2) mg/dL Total Bilirubin (0.0-1.0) mg/dL AST (5-31) U/L ALT (0-31) U/L Alkaline Phosphatase (39-117) U/L Troponin I High Sens (<3.5-17.0) ng/L Total Protein (6.5-8.0) g/dL Albumin (3.5-5.0) g/dL 10/27/23 10/27/23 10/27/23 Range/Units 08:42 08:45 08:58 WBC 8.3 (4.8-10.8) X10*3/uL RBC 4.15 L (4.20-5.50) X10*6/uL Hgb 11.5 L (12.0-16.0) g/dl Hct 36.9 L (37.0-47.0) % MCV 88.9 (80.0-98.0) fL MCH 27.7 (27.0-33.0) pg MCHC 31.2 (31.0-35.0) g/dl RDW 13.8 (11.0-16.0) % Plt Count 190 (160-400) X10*3/uL MPV 10.7 (9.4-12.3) fL Immature Gran % (Auto) 0.4 (0.0-0.4) % Neut % (Auto) 59.2 (45-73) % Lymph % (Auto) 26.8 (20-40) % [place] % (Auto) 8.0 (2-11) % Eos % (Auto) 5.0 H (0-4) % Baso % (Auto) 0.6 (0-2) % Lymph # (Auto) 2.2 (1.2-4.9) X10*3/uL [place] # (Auto) 0.7 (0.1-1.2) X10*3/uL Eos # (Auto) 0.4 (0.0-0.4) X10*3/uL Baso # (Auto) 0.1 (0.0-0.2) X10*3/uL Abs Immat Gran (auto) 0.03 (0.00-0.03) X10*3/uL Absolute Neuts (auto) 4.9 (2.0-8.3) x10*3/uL Absolute Nucleated RBC 0.000 (0.0-0.012) X10*3/uL Nucleated RBC % (auto) 0.0 (0.0-0.2) /100WBC Sodium 141 (135-145) mmol/L Potassium 4.8 (3.3-5.1) mmol/L Chloride 111 H (96-108) mmol/L Carbon Dioxide 21 L (22-29) mmol/L Anion Gap 14 (12-20) BUN 21 H (9-16) mg/dL Creatinine 0.99 (0.5-1.4) mg/dL Estim Creat Clear Calc 47.9 Estimated GFR 55 POC Glucose 39 L* 110 (60-115) mg/dL Random Glucose 44 L* (60-115) mg/dL Calcium 8.2 L D (8.4-10.2) mg/dL Total Bilirubin 0.3 (0.0-1.0) mg/dL AST 26 (5-31) U/L ALT 36 H (0-31) U/L Alkaline Phosphatase 158 H (39-117) U/L Troponin I High Sens 6.8 D (<3.5-17.0) ng/L Total Protein 6.7 (6.5-8.0) g/dL Albumin 3.8 (3.5-5.0) g/dL 10/27/23 10/27/23 Range/Units 09:19 12:35 WBC (4.8-10.8) X10*3/uL RBC (4.20-5.50) X10*6/uL Hgb (12.0-16.0) g/dl Hct (37.0-47.0) % MCV (80.0-98.0) fL MCH (27.0-33.0) pg MCHC (31.0-35.0) g/dl RDW (11.0-16.0) % Plt Count (160-400) X10*3/uL MPV (9.4-12.3) fL Immature Gran % (Auto) (0.0-0.4) % Neut % (Auto) (45-73) % Lymph % (Auto) (20-40) % [place] % (Auto) (2-11) % Eos % (Auto) (0-4) % Baso % (Auto) (0-2) % Lymph # (Auto) (1.2-4.9) X10*3/uL [place] # (Auto) (0.1-1.2) X10*3/uL Eos # (Auto) (0.0-0.4) X10*3/uL Baso # (Auto) (0.0-0.2) X10*3/uL Abs Immat Gran (auto) (0.00-0.03) X10*3/uL Absolute Neuts (auto) (2.0-8.3) x10*3/uL Absolute Nucleated RBC (0.0-0.012) X10*3/uL Nucleated RBC % (auto) (0.0-0.2) /100WBC Sodium (135-145) mmol/L Potassium (3.3-5.1) mmol/L Chloride (96-108) mmol/L Carbon Dioxide (22-29) mmol/L Anion Gap (12-20) BUN (9-16) mg/dL Creatinine (0.5-1.4) mg/dL Estim Creat Clear Calc Estimated GFR POC Glucose 166 H 244 H (60-115) mg/dL Random Glucose (60-115) mg/dL Calcium (8.4-10.2) mg/dL Total Bilirubin (0.0-1.0) mg/dL AST (5-31) U/L ALT (0-31) U/L Alkaline Phosphatase (39-117) U/L Troponin I High Sens (<3.5-17.0) ng/L Total Protein (6.5-8.0) g/dL Albumin (3.5-5.0) g/dL Independent Interpretation I performed an independent interpretation of an: EKG Interpretation: EKG was reviewed interpreted by me as sinus rhythm rate [address]-T changes no acute ischemia normal EKG Independent Historian Clinical information obtained from an independent historian. History obtained from or confirmed by: Other (Her MULTIMEDIA PRODUCTION ASSISTANT) Chronic Conditions Patient?s care impacted by: Diabetes Critical Care Time Critical Care Time Critical Care Time: Yes Total Critical Care Time: 60 Attestation: Hypoglycemic episode requiring I the distress, IM glucagon Discharge Plan Discharge Clinical Impression: Hypoglycemia Patient Disposition: Home, Self-Care Instructions: Hypoglycemia in a Person with Diabetes (ED) Additional Instructions: use only sliding scale today, call your sulfur burner let him know that the you had no hypoglycemic episode Prescriptions: No Action (DME) insulin syringe-needle U-100 [BD Insulin Syringe Ultra-Fine] 0.3 mL 31 gauge x 5/16 syringe See Rx Instructions .ROUTE .MEDSUPPLY Qty: 100 0RF Rx Instructions: As directed 3 times per day (DME) blood-glucose meter [FreeStyle Lite Meter] Kit See Rx Instructions .ROUTE .MEDSUPPLY Qty: 1 0RF Rx Instructions: As directed (DME) pen needle, diabetic [BD Cherelle 2nd Gen Pen Needle] 32 gauge x 5/32 needle See Rx Instructions .MEDSUPPLY Qty: 200 7RF Rx Instructions: 5 times a day Tresiba FlexTouch U-100 100 unit/mL (3 mL) insulin pen 30 unit subcut DAILY Qty: 15 3RF bisacodyl 5 mg tablet,delayed release (DR/EC) 10 mg PO BEDTIME Qty: 60 6RF (DME) FreeStyle Lite Strips Strip See Rx Instructions .ROUTE .COMPLEX Qty: 200 11RF Dose Instruction: TEST BLOOD SUGAR 8 TIMES EVERY DAY Rx Instructions: TEST BLOOD SUGAR 8 TIMES EVERY DAY cholecalciferol (vitamin D3) [Vitamin D3] 50 mcg (2,000 unit) capsule 50 mcg PO QAM Qty: 30 4RF levothyroxine 112 mcg tablet 112 mcg PO DAILY Qty: 30 5RF clopidogrel 75 mg tablet 75 mg PO QAM Qty: 30 7RF calcium citrate 200 mg (950 mg) tablet 400 mg PO BID 30 Days Qty: 120 4RF carvedilol 6.25 mg tablet 6.25 mg PO BID Qty: 60 2RF folic acid 1 mg Tablet 1 mg PO DAILY Qty: 90 4RF clonazepam 0.5 mg tablet 1 tab PO Q8H PRN (Reason: anxiety) methocarbamol 500 mg tablet Enbrel SureClick 50 mg/mL (1 mL) pen injector 50 mg SUBCUT Q7D Fiasp FlexTouch U-100 Insulin 100 unit/mL (3 mL) insulin pen 2 - 14 sliding scale dose subcut QIDACHS acetaminophen 325 mg Tablet 650 mg PO Q6H PRN (Reason: Pain, Mild (Pain Scale 1-3)) Qty: 1 0RF oxycodone 5 mg Tablet 5 mg PO Q4H PRN (Reason: Pain, Moderate(Pain Scale 4-6)) Qty: 18 0RF Rx Instructions: Partial Fill upon patient request. oxycodone [OxyContin] 10 mg Tablet,Oral Only,Ext.Rel.12 Hr 10 mg PO BID Qty: 6 0RF Rx Instructions: Partial Fill upon patient request. albuterol sulfate 90 mcg/actuation HFA aerosol inhaler 2 puff inhalation Q4-6H PRN (Reason: shortness of breath or wheezing) Qty: 8.5 0RF ipratropium-albuterol 0.5 mg-3 mg(2.5 mg base)/3 mL Solution For Nebulization 3 ml inhalation RQ4H WHILE AWAKE 7 Days Qty: 180 2RF albuterol sulfate 2.5 mg /3 mL (0.083 %) Solution For Nebulization 2.5 mg inhalation Q3H PRN (Reason: sob) Qty: 180 2RF (DME) nebulizers Mis See Rx Instructions .Route Qty: 1 0RF Rx Instructions: As directed venlafaxine [Effexor XR] 150 mg capsule,extended release 24hr 150 mg PO DAILY hydroxyzine HCl 10 mg tablet 10 mg PO Q8H PRN (Reason: Anxiety) amlodipine 10 mg tablet 10 mg PO DAILY prazosin 2 mg capsule 6 mg PO BEDTIME (DME) Dexcom G6 [employer] Misc See Rx Instructions .Route Rx Instructions: As directed aripiprazole 20 mg tablet 20 mg PO DAILY losartan 100 mg tablet 100 mg PO DAILY Linzess 290 mcg capsule 290 mcg PO QAM PRN (DME) V-GO 20 Device See Rx Instructions .Route Qty: 30 4RF Rx Instructions: As directed use 1 VGO every 24 hrs Glucerna Liquid 1 ea PO BID 28 Days Qty: 2880 2RF gabapentin 100 mg capsule 100 mg PO BID melatonin 3 mg tablet 3 mg PO BEDTIME atorvastatin 20 mg tablet 20 mg PO DAILY esomeprazole magnesium 40 mg capsule,delayed release(DR/EC) 40 mg PO DAILY Qty: 30 6RF Referrals: Iker CORDERO [Outside] Pascual Darnell MD [Primary Care Provider] - 1 day Print Language: [place] Irish
--- NOTE | 2023-10-27 08:51 | PC.NURSE ---
Pt BIBA for low blood sugar, found to be 37 by EMS. Pt stated her called ems because she was altered/very lethargic. Upon arrival pt was lethargic, opening eyes to stimulation only. POC was 24 and rechecked it was 34. MD Mccollum made aware. 20g IV placed in left AC ultrasound guided, 22g in right hand placed by RN. EKG and labs obtained and sent to lab. D10% running in left AC, 15 min POC checks to monitor blood sugar. Pt has become more alert, making needs known. Call andino within reach, awaiting further orders at this time.
[2023-10-27 08:55] LABS: MANUAL DIFF FLAG NO
[2023-10-27 08:56] LABS: Basophils Absolute Auto 0.1 X10*3/uL (0.0-0.2); Basophils Percent Auto 0.6 % (0-2); Eosinophils Absolute Auto 0.4 X10*3/uL (0.0-0.4); Hematocrit 36.9 % (37.0-47.0); Hemoglobin 11.5 g/dl (12.0-16.0); Imm Gran Abs Auto 0.03 X10*3/uL (0.00-0.03); Imm Gran Pct Auto 0.4 % (0.0-0.4); Lymphocytes Absolute Auto 2.2 X10*3/uL (1.2-4.9); Lymphocytes Percent Auto 26.8 % (20-40); Mean Corpuscular HGB Conc 31.2 g/dl (31.0-35.0); Mean Corpuscular Hemoglobin 27.7 pg (27.0-33.0); Mean Corpuscular Volume 88.9 fL (80.0-98.0); Mean Platelet Volume 10.7 fL (9.4-12.3); Monocytes Absolute Auto 0.7 X10*3/uL (0.1-1.2); Neutrophils Absolute Auto 4.9 x10*3/uL (2.0-8.3); Neutrophils Percent Auto 59.2 % (45-73); Platelet Count 190 X10*3/uL (160-400); Red Blood Count 4.15 X10*6/uL (4.20-5.50); Red Cell Distribution Width 13.8 % (11.0-16.0); White Blood Count 8.3 X10*3/uL (4.8-10.8)
[2023-10-27 09:15] LABS: Troponin-I High Sensitivity 6.8 ng/L (<3.5-17.0)
[2023-10-27 09:18] LABS: Alanine Aminotransferase 36 U/L (0-31); Albumin Level 3.8 g/dL (3.5-5.0); Alkaline Phosphatase 158 U/L (39-117); Anion Gap 14 (12-20); Aspartate Amino Transferase 26 U/L (5-31); Bilirubin Total 0.3 mg/dL (0.0-1.0); Blood Urea Nitrogen 21 mg/dL (9-16); Calcium 8.2 mg/dL (8.4-10.2); Carbon Dioxide 21 mmol/L (22-29); Chloride 111 mmol/L (96-108); Creatinine Clr Calc Pharmacy 47.9; Estimated Glomerular Filt Rate 55; Glucose Random 44 mg/dL (60-115); Potassium 4.8 mmol/L (3.3-5.1); Sodium 141 mmol/L (135-145); Total Protein 6.7 g/dL (6.5-8.0)
[2023-10-27 09:23] LABS: Glucose, Whole Blood 110 mg/dL (60-115)
[2023-10-27 09:23] LABS: Glucose, Whole Blood 39 mg/dL (60-115)
[2023-10-27 09:23] LABS: Glucose, Whole Blood 28 mg/dL (60-115)
[2023-10-27 09:23] LABS: Glucose, Whole Blood 34 mg/dL (60-115)
[2023-10-27 09:23] LABS: Glucose, Whole Blood 34 mg/dL (60-115)
[2023-10-27 09:23] LABS: Glucose, Whole Blood 166 mg/dL (60-115)
[2023-10-27 09:42] VITALS: TEMP 34.8
--- NOTE | 2023-10-27 09:43 | PC.NURSE ---
Pt OIL PROGRAM COMPLIANCE SPECIALIST at bedside. Stated pt didn't answer phone calls so she went over to check on her and found pt lethargic/altered. She checked sugar and found to be 37. OIL PROGRAM COMPLIANCE SPECIALIST/pt stated she has been running low 30-60s d/t not eating as much and keeping the same insulin coverage. Pt POC up to 116, D10% infused. Pt is a/ox3, eating peanut butter and jelly sandwich and drinking orange juice. Pt rectal temp 94.6f, placed on warming blanket on low setting. Call andino within reach, awaiting further orders at this time.
[2023-10-27 11:15] VITALS: TEMP 36.4
--- NOTE | 2023-10-27 11:15 | PC.NURSE ---
Pt temp 97.5 oral, warming blanket removed.
[2023-10-27 11:45] VITALS: BP 156/72; PULSE 88; RESP 16; TEMP 36.4; O2SAT 100
--- NOTE | 2023-10-27 11:46 | PC.NURSE ---
[facility] [phone]
[2023-10-27 12:38] LABS: Glucose, Whole Blood 244 mg/dL (60-115)
--- NOTE | 2023-10-27 14:29 | MHC.CM.ED ---
Received case management consult from Dr Mccollum. Patient came to the ER due to hypoglycemia. Patient was at [facility] for STR from 09/15-10/09. Patient was d/c'd home at that time. Patient saw diamond saw operator on 10/15. Patient is active with [facility]. Per Maribell at [facility], ok to refer out for longterm for [facility]. Met with patient, friend Eleanor and LOAD DISPATCHER Gabriela in regards to discharge planning. Patient lives alone, uses a walker/cane for mobility and has LOAD DISPATCHER hours through [facility]. PCP verified. Copy of HCP verified to be on file. All are agreeable to referral to [place] [facility] for longterm. Gabriela will transport patient home. Dr Mccollum aware. Continue to monitor for d/c needs.
[2023-10-27 14:34] VITALS: BP 165/63; PULSE 95; RESP 19; TEMP 36; O2SAT 99
[2023-10-27 15:01] VITALS: BP 179/67; PULSE 100; RESP 20; TEMP 36.8; O2SAT 98
--- NOTE | 2023-10-27 15:07 | PC.NURSE ---
Patient is going home to take her bp meds. poc 189
[2023-10-27 15:11] LABS: Glucose, Whole Blood 186 mg/dL (60-115)
== END 2023-10-27 15:18 | disposition home or self-care (01) ==
PROVIDERS: Emergency Provider Emergency Medicine; PCP Internal Medicine
DX: R41.82 Altered mental status, unspecified (principal); E11.649 Type 2 diabetes mellitus with hypoglycemia without coma; R53.83 Other fatigue; R94.31 Abnormal electrocardiogram [ECG] [EKG]; Z79.4 Long term (current) use of insulin; Z98.84 Bariatric surgery status; Z79.899 Other long term (current) drug therapy
CPT/HCPCS: 36415; 80053; 82947; 84484; 85025; 93005; 96365; 96366; 96372; 99284; 99285; J1610

== ENCOUNTER → 2023-10-27 08:30 | Outpatient (BNV) | payer OTHER, SELFPAY | PROVIDERS: Emergency Provider Emergency Medicine; PCP Internal Medicine; Visit Provider Internal Medicine Cardiovascular Disease | DX: E16.2 Hypoglycemia, unspecified (principal) | CPT/HCPCS: 93010 ==

== ENCOUNTER 2023-10-31 10:17 | Outpatient (REF) | payer OTHER, SELFPAY ==
[2023-10-31 12:34] LABS: Albumin Level 3.6 g/dL (3.5-5.0); Calcium 8.4 mg/dL (8.4-10.2); Cholesterol 95 mg/dL (<200); HDL Cholesterol 38 mg/dL (>40); LDL Cholesterol Calculated 43 mg/dL (<100); Triglycerides 74 mg/dL (<150)
[2023-11-05 13:33] LABS: Vitamin D 25-OH, D2 <4 ng/mL; Vitamin D 25-OH, D3 38 ng/mL; Vitamin D 25-OH, Total 38 ng/mL (30-100)
[2023-11-06 15:24] LABS: Alkaline Phosphatase Bone 28.7 mcg/L (5.6-29.0)
== END 2023-10-31 10:18 | disposition home or self-care (01) ==
LOC: HO.LAB 10:17
PROVIDERS: PCP Internal Medicine; Visit Provider Nurse Practitioner Adult Health
DX: M81.0 Age-related osteoporosis without current pathological fracture (principal); E10.649 Type 1 diabetes mellitus with hypoglycemia without coma; E21.1 Secondary hyperparathyroidism, not elsewhere classified
CPT/HCPCS: 36415; 80061; 82040; 82306; 82310; 83970; 84075

== ENCOUNTER 2023-11-03 09:00 | Outpatient (AMB) | payer OTHER, SELFPAY ==
--- NOTE | 2023-11-03 09:54 | A.OFFVIS_ITS ---
Intake Intake Visit Reasons: T2DM/CONFIRMED Calciner Operator Required: Yes Calciner Operator Language: Plastic Technician [place] [facility] [place] Accompanied by: Other Relationship Allergies lorazepam [LORAZEPAM] Allergy (Severe, Verified 10/27/23 08:31) DELIRIUM celecoxib [From Celebrex] Allergy (Intermediate, Verified 10/27/23 08:31) ITCHING tramadol [TRAMADOL] Allergy (Intermediate, Verified 10/27/23 08:31) ITCHING zolpidem [Ambien] Allergy (Unknown, Verified 10/27/23 08:31) unknown HPI Comprehensive Diabetes Asmnt Most Recent Diabetes Results: Cholesterol 95 mg/dL (<200) 10/31/23 HDL Cholesterol 38 mg/dL (>40) L 10/31/23 Triglycerides 74 mg/dL (<150) 10/31/23 Creatinine 0.99 mg/dL (0.5-1.4) 10/27/23 Blood Urea Nitrogen 21 mg/dL (9-16) H 10/27/23 Sodium 141 mmol/L (135-145) 10/27/23 Potassium 4.8 mmol/L (3.3-5.1) 10/27/23 Chloride 111 mmol/L (96-108) H 10/27/23 Carbon Dioxide 21 mmol/L (22-29) L 10/27/23 Calcium 8.4 mg/dL (8.4-10.2) 10/31/23 AST 26 U/L (5-31) 10/27/23 ALT 36 U/L (0-31) H 10/27/23 Total Protein 6.7 g/dL (6.5-8.0) 10/27/23 Albumin 3.6 g/dL (3.5-5.0) 10/31/23 [facility] Medical History (Updated 10/28/23 @ 00:01 by Background Lyric) Osteoporosis Hyperlipidemia (04/21/1959) Depressive disorder (04/21/1959) Nutritional anemia (04/21/1959) Shortness of breath Hypothyroidism (04/21/1959) Anemia Chronic gastritis Heart palpitations NSTEMI (non-ST elevated myocardial infarction) Recurrent falls (12/04/11) Iron deficiency anemia (04/21/1959) Fibromyositis (04/21/1959) Eczema (04/21/1959) High risk medication use Hepatitis C antibody positive in blood Screening for osteoporosis Screening for viral disease Joint swelling Overweight (BMI 25.0-29.9) Neck pain Swelling of knee joint, right Intra-abdominal abscess Diabetes Elevated liver function tests Intestinal malabsorption following gastrectomy Obesity (BMI 30-39.9) 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 Hypertension Cholecystitis Hyperlipidemia, unspecified Essential hypertension Atherosclerotic cardiovascular disease Fibromyalgia Folliculitis Anxiety Depression History of myocardial infarction Diabetes type 1, uncontrolled Hyperparathyroidism due to vitamin D deficiency Dyslipidemia Rona's disease Hypothyroidism Surgical History History of bypass gastroenterostomy (11/13/17) H/O gastric bypass S/P laparoscopic cholecystectomy Status post gastric bypass for obesity History of esophagogastroduodenoscopy (EGD) H/O colonoscopy History of laparoscopic cholecystectomy History of bladder suspension procedure Status post laser cataract surgery of both eyes Hx of appendectomy Family History Father No problems noted. Mother CVA (cerebral vascular accident) Sister Hypertension Brother Hypertension Liver cancer Social History Household Members: None Housing: Apartment Are you a primary housekeeper child care to a significant other at home: No Do you presently have visiting nurse or other home services: Yes Unable to assess alcohol history related to: Unable to respond Alcohol intake: never Patient Tobacco Use Status: Never used Tobacco service: No Current occupational status: disabled Current occupation: right hand dominant Assessment & Plan Assessment & Plan (1) Diabetes type 1, uncontrolled: Code(s): E10.65 - Type 1 diabetes mellitus with hyperglycemia Qualifiers: Glycemic state: with hypoglycemia Coma presence: without coma Kings lified Code(s): E10.649 - Type 1 diabetes mellitus with hypoglycemia without coma Plan: Learning objectives: The patient was provided with verbal and written education on the following topics as outlined below. Assess patient education level/literacy/barriers Patient questions/concerns, patient was hospitalized on 10/27/2023 with episode of hypoglycemia. Patient's [employer] [employer] found patient at home unresponsive, checked glucose at that time glucose was 37 mg/dL. [employer] [employer] called paramedics patient was brought to [facility]. PC reports when patient was discharged her Tresiba was decreased to 13 units daily, however patient reports that nurse from the hospital called an increase Tresiba to 20 units daily. Could not find evidence in patient's discharge information or in work loads call increasing Tresiba to 20 units. Patient is currently taking Tresiba 20 units, and using Fiasp S/S Patient is also having difficulty with Dexcom G7 sensors, [employer] reports that she has had multiple failures. Inserted in started Dexcom G7 sample sensor at today's visit in back of patient's right arm. Patient's [employer] was given 2 additional Dexcom G7 sample sensors. Patient is a eager to start V-Go 20. However discussed with patient if basal insulin demand is lower than 20 units daily the V-Go device would not be appropriate. Instructed patient to wear Dexcom G7 sensor for the next 2 weeks, continue to take Tresiba 20 units, however if overnight or fasting glucose are falling below 80 units, she is to decrease Tresiba to 14 units daily. Treat any episodes of hypoglycemia with rule of 15s, at time of visit patient's glucose was 131 mg/dL, fell to 93 mg/dL during visit. Patient reports she would taken Tresiba 20 units this morning, along with Fiasp 5 units, before drinking Ensure. Patient given 4 oz of tawanda rasheeda at today's visit, instructed patient to have snack or meal when she returns home The patient met all learning objectives and was able to verbalize understanding and provide teach back of education topics discussed . The patient was provided with the opportunity to ask questions and all questions were answered. Topics covered in today?s session included: Insulin/Injectables (If applicable) * Storage/care of insulin?? * Injection sites? * Site rotation? * Onset, peak, duration * Drawing up insulin? * Injecting insulin/other injectables? * Sharps disposal Continuous blood glucose monitoring (if applicable) Hypoglycemia and Hyperglycemia * Signs and symptoms? * Causes?? * Treatment? * Preventing hypoglycemia? * When to seek medical attention * Blood glucose targets and how you feel when your blood glucose is in and out of your target ranges. * Monitoring and knowing your A1C. * What can make blood glucose go up and down and preventing high and low blood glucose. * Review of blood sugar targets in expected goal range and outside of expected goal range. * Problem solving and preventing hyper/hypoglycemia. * Sick day management of diabetes. * Using blood sugar results in decision making process in managing diabetes. ?Patient was receptive to information provided and participated in the discussion. Asked?appropriate questions and demonstrated good understanding of the topics discussed.? ? Educational Materials: The patient was provided with the following written educational materials: Rule of 15s handout given in Andor[place] Portions of this note were created using voice recognition software, please excuse any words or phrases that may have been misinterpreted. Patient Instructions: Patient will follow-up with personal development educator in 2 weeks Coding Level of Care Code Est Pt Level 1 (93498) Diagnoses Uncontrolled type 1 diabetes mellitus with hypoglycemia without coma E10.649 Glycemic state: with hypoglycemia Coma presence: without coma
== END 2023-11-03 09:56 | disposition home or self-care (01) ==
PROVIDERS: PCP Internal Medicine; Visit Provider Registered Nurse Diabetes Educator
DX: E10.649 Type 1 diabetes mellitus with hypoglycemia without coma (principal)

== ENCOUNTER → 2023-11-03 09:00 | Outpatient (BNVA) | payer OTHER, SELFPAY | PROVIDERS: PCP Internal Medicine; Visit Provider Registered Nurse Diabetes Educator | DX: E10.649 Type 1 diabetes mellitus with hypoglycemia without coma (principal) | CPT/HCPCS: 99211 ==

== ENCOUNTER 2023-11-12 12:11 | Outpatient (AMB) | payer OTHER, SELFPAY ==
--- NOTE | 2023-11-12 12:26 | MHC.OFFVIS ---
Vital Signs 11/12/23 12:27 Height 4 ft 11 in Weight 150 lb 12.739 oz BMI 30.5 BP 130/70 Blood Pressure Location Rt brachial Position Sitting Pulse 64 Pulse Source Pulse Oximeter Intake Visit Reasons: 6 mth f/up Fabrication Inspector Required: Yes Fabrication Inspector Services: Fabrication Inspector Present Fabrication Inspector Name: Pascual [id number]/juan carlos/sena Instrumentation And Controls Technician: Instrumentation And Controls Technician Present Accompanied by: Other Relationship Allergies lorazepam [LORAZEPAM] Allergy (Severe, Verified 11/10/23 10:21) DELIRIUM celecoxib [From Celebrex] Allergy (Intermediate, Verified 11/10/23 10:21) ITCHING tramadol [TRAMADOL] Allergy (Intermediate, Verified 11/10/23 10:21) ITCHING zolpidem [Ambien] Allergy (Unknown, Verified 11/10/23 10:21) unknown Medication List - Last Reconciled 11/12/23 by Osman Uribe MD acetaminophen 650 mg (2 x 325 mg) PO Q6H PRN Actemra ACTPen (tocilizumab) 162 mg (0.9 mL) subcut Q2W NS albuterol sulfate 90 mcg/actuation 2 puffs inhalation Q4-6H PRN albuterol sulfate 2.5 mg (3 mL) inhalation Q3H PRN amlodipine 10 mg PO DAILY aripiprazole 20 mg PO DAILY atorvastatin 20 mg PO DAILY bisacodyl 10 mg (2 x 5 mg) PO BEDTIME blood sugar diagnostic (FreeStyle Lite Strips) TEST BLOOD SUGAR 8 TIMES EVERY DAY blood-glucose meter (FreeStyle Lite Meter kit) As directed blood-glucose meter,continuous (Dexcom G6 Administrative Officer) As directed calcium citrate 400 mg (2 x 200 mg (950 mg)) PO BID 30 days carvedilol 6.25 mg PO BID cholecalciferol (vitamin D3) (Vitamin D3) 50 mcg PO QAM clonazepam 1 tab PO Q8H PRN clopidogrel 75 mg PO QAM esomeprazole magnesium 40 mg PO DAILY folic acid 1 mg PO DAILY gabapentin 100 mg PO BID hydroxyzine HCl 10 mg PO Q8H PRN insulin aspart (niacinamide) 100 unit/mL (3 mL) (Fiasp FlexTouch U-100 Insulin) 2 - 14 sliding scale doses subcut QIDACHS insulin degludec (Tresiba FlexTouch U-100 insulin) 30 units (0.3 mL) subcut DAILY insulin syringe-needle U-100 (BD Insulin Syringe Ultra-Fine) As directed 3 times per day ipratropium-albuterol 0.5 mg-3 mg(2.5 mg base)/3 mL 3 mL inhalation RQ4H WHILE AWAKE 7 days levothyroxine 112 mcg PO DAILY linaclotide (Linzess) 290 mcg PO QAM losartan 100 mg PO DAILY melatonin 3 mg PO BEDTIME methocarbamol 500 mg PO DAILY nebulizers As directed nut.tx.gluc.intol,lac-free,soy (Glucerna oral liquid) 1 ea PO BID 28 days oxycodone 5 mg PO Q4H PRN oxycodone ER (OxyContin) 10 mg PO BID pen needle, diabetic (Pentips) USE FIVE TIMES DAILY prazosin 6 mg PO BEDTIME sub-q insulin device, 20 unit (V-GO 20 device) As directed use 1 VGO every 24 hrs venlafaxine ER (Effexor XR) 150 mg PO DAILY HPI Comments Details: Brandie returns for follow-up regarding coronary disease. To recall, in 2017, she underwent cardiac catheterization following an NSTEMI in the context of diabetic ketoacidosis. She only had mild disease without any obstructive lesions. Overall, she really does not have any clear-cut cardiac symptoms. No angina specifically. [facility] Medical History (Updated 11/10/23 @ 10:38 by Zeb Tang MD) Osteoporosis Hyperlipidemia (04/21/1959) Depressive disorder (04/21/1959) Nutritional anemia (04/21/1959) Shortness of breath Hypothyroidism (04/21/1959) Anemia Chronic gastritis Heart palpitations NSTEMI (non-ST elevated myocardial infarction) Recurrent falls (12/04/11) Iron deficiency anemia (04/21/1959) Fibromyositis (04/21/1959) Eczema (04/21/1959) High risk medication use Hepatitis C antibody positive in blood Screening for osteoporosis Screening for viral disease Joint swelling Overweight (BMI 25.0-29.9) Neck pain Swelling of knee joint, right Intra-abdominal abscess Diabetes Elevated liver function tests Intestinal malabsorption following gastrectomy Obesity (BMI 30-39.9) 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 Hypertension Cholecystitis Hyperlipidemia, unspecified Essential hypertension Atherosclerotic cardiovascular disease Fibromyalgia Folliculitis Anxiety Depression History of myocardial infarction Diabetes type 1, uncontrolled Hyperparathyroidism due to vitamin D deficiency Dyslipidemia Rona's disease Hypothyroidism Surgical History History of bypass gastroenterostomy (11/13/17) H/O gastric bypass S/P laparoscopic cholecystectomy Status post gastric bypass for obesity History of esophagogastroduodenoscopy (EGD) H/O colonoscopy History of laparoscopic cholecystectomy History of bladder suspension procedure Status post laser cataract surgery of both eyes Hx of appendectomy Family History Father No problems noted. Mother CVA (cerebral vascular accident) Sister Hypertension Brother Hypertension Liver cancer Social History Household Members: None Housing: Apartment Are you a primary day care attendant to a significant other at home: No Do you presently have visiting nurse or other home services: Yes Unable to assess alcohol history related to: Unable to respond Alcohol intake: never Patient Tobacco Use Status: Never used Tobacco service: No Current occupational status: disabled Current occupation: right hand dominant Review of Systems Const Denies chills, Denies fatigue, Denies fever(s), Denies weight gain and Denies weight loss ENT Denies dizziness Card Denies chest pain, Denies leg edema, Denies lightheadedness, Denies palpitations, Denies dyspnea on exertion, Denies orthopnea and Denies other Resp Denies cough and Denies dyspnea on exertion GI Denies hematochezia and Denies change in stool character Musc Denies abnormal gait, Denies muscle weakness, Denies numbness, Denies radiating pain into limb and Denies tingling Neuro Denies abnormal gait, Denies dizziness, Denies numbness and Denies tingling Endo Denies fatigue and Denies palpitations Physical Exam Vital Signs: Last Vital Signs Pulse 64 11/12/23 12:27 BP 130/70 11/12/23 12:27 BMI result Body Mass Index 30.5 Const General: comfortable and no acute distress Orientation/consciousness: patient oriented x3 HEENT Other: Unremarkable Head: Yes normal to inspection Neck Neck: Yes normal visual inspection Chest Chest palpation & inspection: normal inspection of the chest Resp Auscultation: clear to auscultation bilaterally Cardio Palpation: normal PMI Heart sounds: S1 normal heart sound present, S2 normal heart sound present, no gallops, no murmurs and no rubs GI Palpation (GI): Soft to palpation Back/Spine/Pelvis Other: unremarkable Skin General skin exam: no rashes or lesions noted Neuro General: patient oriented x3 Extrem General: Yes normal to inspection Psych Mental Status: mental status grossly normal Assessment & Plan Assessment & Plan (1) Atherosclerotic cardiovascular disease: Code(s): I25.10 - Atherosclerotic heart disease of [place] coronary artery without angina pectoris Category: Medical (2) Hyperlipidemia, unspecified: Code(s): E78.5 - Hyperlipidemia, unspecified Category: Medical Qualifiers: Hyperlipidemia type: other hyperlipidemia Qualified Code(s): E78.49 - Other hyperlipidemia Plan Cardiac catheterization - 30% disease in the ostial left anterior descending artery. There was no clear culprit for the NSTEMI. Clinically asymptomatic from cardiac. Aggressive risk factor modification only. Remains on statins and LDL is 43 mg/dL. Due to bariatric surgery history, she is on Plavix and not aspirin. No changes with that, as she has been doing okay. Coding Level of Care Code Est Pt Level 3 (80622) Diagnoses Atherosclerotic cardiovascular disease I25.10 Other hyperlipidemia E78.49 Hyperlipidemia type: other hyperlipidemia
[2023-11-12 12:27] VITALS: BP 130/70; PULSE 64; BMI 30.5
== END 2023-11-12 12:59 | disposition home or self-care (01) ==
PROVIDERS: PCP Internal Medicine; Visit Provider Internal Medicine
DX: I25.10 Atherosclerotic heart disease of native coronary artery without angina pectoris (principal); E78.49 Other hyperlipidemia
CPT/HCPCS: 99213

== ENCOUNTER → 2023-11-12 12:11 | Outpatient (BNVA) | payer OTHER, SELFPAY | PROVIDERS: PCP Internal Medicine; Visit Provider Internal Medicine | DX: I25.10 Atherosclerotic heart disease of native coronary artery without angina pectoris (principal); E78.49 Other hyperlipidemia | CPT/HCPCS: 99212 ==

== ENCOUNTER 2023-11-14 09:44 | Outpatient (AMB) | payer OTHER, SELFPAY ==
[2023-11-14 09:49] VITALS: BP 122/66; PULSE 76; BMI 31.9
--- NOTE | 2023-11-14 09:49 | A.OFFVIS_ITS ---
Vital Signs 11/14/23 09:49 Height 4 ft 11 in Weight 157 lb 13.616 oz BMI 31.9 BP 122/66 Blood Pressure Location Rt brachial Position Sitting Pulse 76 Pulse Source Pulse Oximeter Intake Visit Reasons: T2DM/CONFIRMED Intake Note: Patient present today to follow up on Type 1 Diabetes Mellitus. Patient had a critical low blood sugar, was seen in the ED on 10/27/2023. Patient receives DME supplies through: [employer] Last Diabetic Eye exam: Over 2 years ago. Last Podiatry Visit: Does not see a hand bunch maker Random Glucose: 130 mg/dL HgA1C: 8.0%, 10/16/2023 Programming Specialist Required: Yes Programming Specialist Language: Web Site Administrator Services: Programming Specialist Present Programming Specialist Name: Stephie Information Interpreted: non-clinical & clinical Accompanied by: COIN PURSE ASSEMBLER Allergies lorazepam [LORAZEPAM] Allergy (Severe, Verified 11/14/23 09:56) DELIRIUM celecoxib [From Celebrex] Allergy (Intermediate, Verified 11/14/23 09:56) ITCHING tramadol [TRAMADOL] Allergy (Intermediate, Verified 11/14/23 09:56) ITCHING zolpidem [Ambien] Allergy (Unknown, Verified 11/14/23 09:56) unknown HPI Comments Details: Patient is a 73-year-old female with DM type 1 diagnosed at 40 years of age, initially thought to have type 2 diabetes, who presents for management of diabetes. A1C 8% early the this month down from 8.8%. She does report a history of hypoglycemic coma in the past. She has had a recent low sugar in the 20s was hospitalized for 1 day. Her sliding scale was significantly reduced She was recently hospitalized for multiple rib fractures after a fall. She is followed by Rheumatology and is on IV Reclast yearly. She is now back on it Dexcom G7 sensor and has had no recent hypoglycemia. She has been on on Levothyroxine 112 mcg daily. 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 Scalp folliculitis, fibromyalgia, microcytic anemia pernicious depression. Bariatric surgery 12/09/2016. [place] in past Micro and macrovascular complications: CAD Diabetes medications: Tresiba 20 units Fiasp: 150-200 mg 2 units 201-250 mg 4 units 251-300 mg/ 6 units 301-350 mg 8 units 351-400 mg 8 units Symptoms reported: denies numbness, tingling, cramping in lower extremities Hypoglycemia: reports occasional afternoon hypoglycemia once or twice a mo Hyperglycemia: + urinary frequency, +nocturia, +polydypsia Exercise: denies Library Aide - CDE education: in past Nursing Program Director: in past would like referral Ophthalmology evaluation:needs to schedule Other specialists: trout farmer, neurologist, Dr. Tang, Rheumatology [facility] Medical History (Updated 11/10/23 @ 10:38 by Zeb Tang MD) Osteoporosis Hyperlipidemia (04/21/1959) Depressive disorder (04/21/1959) Nutritional anemia (04/21/1959) Shortness of breath Hypothyroidism (04/21/1959) Anemia Chronic gastritis Heart palpitations NSTEMI (non-ST elevated myocardial infarction) Recurrent falls (12/04/11) Iron deficiency anemia (04/21/1959) Fibromyositis (04/21/1959) Eczema (04/21/1959) High risk medication use Hepatitis C antibody positive in blood Screening for osteoporosis Screening for viral disease Joint swelling Overweight (BMI 25.0-29.9) Neck pain Swelling of knee joint, right Intra-abdominal abscess Diabetes Elevated liver function tests Intestinal malabsorption following gastrectomy Obesity (BMI 30-39.9) 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 Hypertension Cholecystitis Hyperlipidemia, unspecified Essential hypertension Atherosclerotic cardiovascular disease Fibromyalgia Folliculitis Anxiety Depression History of myocardial infarction Diabetes type 1, uncontrolled Hyperparathyroidism due to vitamin D deficiency Dyslipidemia Rona's disease Hypothyroidism Surgical History History of bypass gastroenterostomy (11/13/17) H/O gastric bypass S/P laparoscopic cholecystectomy Status post gastric bypass for obesity History of esophagogastroduodenoscopy (EGD) H/O colonoscopy History of laparoscopic cholecystectomy History of bladder suspension procedure Status post laser cataract surgery of both eyes Hx of appendectomy Family History Father No problems noted. Mother CVA (cerebral vascular accident) Sister Hypertension Brother Hypertension Liver cancer Social History Household Members: None Housing: Apartment Are you a primary career information specialist to a significant other at home: No Do you presently have visiting nurse or other home services: Yes Unable to assess alcohol history related to: Unable to respond Alcohol intake: never Patient Tobacco Use Status: Never used Tobacco service: No Current occupational status: disabled Current occupation: right hand dominant Physical Exam Vital Signs: Last Vital Signs Pulse 76 11/14/23 09:49 BP 122/66 11/14/23 09:49 BMI result Body Mass Index 31.9 Const General: cooperative Limitations: no limitations Resp Effort & Inspection: normal respiratory effort Cardio Jugular venous distension: no JVD Results Reviewed Results Reviewed: Laboratory Last Values Glucose (Clinic) 130 mg/dL (60-115) H 11/14/23 09:59 Assessment & Plan Assessment & Plan (1) Diabetes type 1, uncontrolled: Code(s): E10.65 - Type 1 diabetes mellitus with hyperglycemia Category: Medical Qualifiers: Glycemic state: with hypoglycemia Coma presence: without coma Qualified Code(s): E10.649 - Type 1 diabetes mellitus with hypoglycemia without coma Plan: The patient is a type 1 diabetic diagnosed at age 40. She has a history of severe hypoglycemia and did have a low reaction for which she was hospitalized briefly several weeks ago. Her sliding scale insulin was adjusted over the past month quite substantially. She is now back on a sensor and her sugars have stabilized on a much lower dose of bolus insulin. I believe she would do well on an ilet pump. She is currently on dexcom G6 already. Orders: Orders Alkaline Phosphatase Bone Today M81.0 - Age-related osteoporosis without current pathological fracture Calcium, Ionized Today M81.0 - Age-related osteoporosis without current pathological fracture TSH reflex Free T4 Today M81.0 - Age-related osteoporosis without current pathological fracture Vitamin D 25-OH Total Today M81.0 - Age-related osteoporosis without current pathological fracture Phosphorus Today M81.0 - Age-related osteoporosis without current pathological fracture Albumin Level Today M81.0 - Age-related osteoporosis without current pathological fracture Calcium Today M81.0 - Age-related osteoporosis without current pathological fracture Parathyroid Hormone Intact Today M81.0 - Age-related osteoporosis without current pathological fracture Coding Level of Care Code Est Pt Level 4 (28196) Diagnoses Uncontrolled type 1 diabetes mellitus with hypoglycemia without coma E10.649 Glycemic state: with hypoglycemia Coma presence: without coma Time Spent (min) 30 Comment Time spent reviewing labs/previous provider notes, face to face, chart documentation
[2023-11-14 10:04] LABS: Glucose, Whole Blood 130 mg/dL (60-115)
== END 2023-11-14 10:24 | disposition home or self-care (01) ==
PROVIDERS: PCP Internal Medicine; Visit Provider Nurse Practitioner Adult Health
DX: E10.649 Type 1 diabetes mellitus with hypoglycemia without coma (principal)
CPT/HCPCS: 99214

== ENCOUNTER → 2023-11-14 09:44 | Outpatient (BNVA) | payer OTHER, SELFPAY | PROVIDERS: PCP Internal Medicine; Visit Provider Nurse Practitioner Adult Health | DX: E10.649 Type 1 diabetes mellitus with hypoglycemia without coma (principal) | CPT/HCPCS: 82947; 99212 ==

== ENCOUNTER 2023-11-17 14:20 | Outpatient (AMB) | payer OTHER, SELFPAY ==
--- NOTE | 2023-11-17 14:35 | A.OFFVIS_ITS ---
Intake Visit Reasons: New prob- Left shoulder pain, DOI 08/27/23 Intake Note: Brandie a 73 year old right hand dominant female who presents today for an evaluation of left shoulder pain, DOI 08/27/23. Patient reports an injurr to her shoulder after she fell off her bed. She was seen at [facility] where xrays were taken and placed in a sling. Currently her pain is located in her shoulder. Denies numbness or tingling. No previous tx. Tank Driver Name: Sai ID#[id number] Allergies lorazepam [LORAZEPAM] Allergy (Severe, Verified 11/17/23 14:40) DELIRIUM celecoxib [From Celebrex] Allergy (Intermediate, Verified 11/17/23 14:40) ITCHING tramadol [TRAMADOL] Allergy (Intermediate, Verified 11/17/23 14:40) ITCHING zolpidem [Ambien] Allergy (Unknown, Verified 11/17/23 14:40) unknown HPI HPI New prob- Left shoulder pain, DOI 08/27/23: Details: Brandie is a 73-year-old right-hand dominant female who presents today for an evaluation of left shoulder pain, DOI 08/27/2023. The patient states that she fell off her bed and injured her shoulder. She was evaluated at [facility] where x- rays were taken and placed her in a sling. She is currently experiencing left shoulder pain. She denies numbness or tingling. She denies any previous treatment. [facility] Medical History (Updated 11/17/23 @ 15:06 by Elise Byrd PA-C) Osteoporosis Hyperlipidemia (04/21/1959) Depressive disorder (04/21/1959) Nutritional anemia (04/21/1959) Shortness of breath Hypothyroidism (04/21/1959) Anemia Chronic gastritis Heart palpitations NSTEMI (non-ST elevated myocardial infarction) Recurrent falls (12/04/11) Iron deficiency anemia (04/21/1959) Fibromyositis (04/21/1959) Eczema (04/21/1959) High risk medication use Hepatitis C antibody positive in blood Screening for osteoporosis Screening for viral disease Joint swelling Overweight (BMI 25.0-29.9) Neck pain Swelling of knee joint, right Intra-abdominal abscess Diabetes Elevated liver function tests Intestinal malabsorption following gastrectomy Obesity (BMI 30-39.9) 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 Hypertension Cholecystitis Hyperlipidemia, unspecified Essential hypertension Atherosclerotic cardiovascular disease Fibromyalgia Folliculitis Anxiety Depression History of myocardial infarction Diabetes type 1, uncontrolled Hyperparathyroidism due to vitamin D deficiency Dyslipidemia Rona's disease Hypothyroidism Surgical History History of bypass gastroenterostomy (11/13/17) H/O gastric bypass S/P laparoscopic cholecystectomy Status post gastric bypass for obesity History of esophagogastroduodenoscopy (EGD) H/O colonoscopy History of laparoscopic cholecystectomy History of bladder suspension procedure Status post laser cataract surgery of both eyes Hx of appendectomy Family History Father No problems noted. Mother CVA (cerebral vascular accident) Sister Hypertension Brother Hypertension Liver cancer Social History Household Members: None Housing: Apartment Are you a primary day care supervisor to a significant other at home: No Do you presently have visiting nurse or other home services: Yes Unable to assess alcohol history related to: Unable to respond Alcohol intake: never Patient Tobacco Use Status: Never used Tobacco service: No Current occupational status: disabled Current occupation: right hand dominant Review of Systems Const All systems reviewed & are unremarkable except as noted in HPI and below Physical Exam Const General: cooperative, healthy appearing, comfortable and no acute distress Orientation/consciousness: patient oriented x3 Neck Neck: Yes normal visual inspection and Yes no JVD Chest Chest palpation & inspection: normal inspection of the chest Resp Effort & Inspection: normal respiratory effort Auscultation: clear to auscultation bilaterally, crackles (no), rales (no), rhonchi (no) and wheezes (no) Cardio Jugular venous distension: no JVD Rate: regular rate Rhythm: regular rhythm Heart sounds: S1 normal heart sound present, S2 normal heart sound present, Murmur heart sound present (no) and Rub heart sound present (no) Neuro General: patient oriented x3 Extrem Other: Left shoulder: Normal to inspection. She does have a bony prominence over the distal end of the clavicle with some mild tenderness to palpation. Forward flexion 95 degrees and external rotation to 90 and she is able to activate her rotator cuff. NVI. General: Yes normal to inspection, Yes no pedal edema and Yes no calf tenderness Results Reviewed Results Reviewed: XR shoulder LT min 2V 10/21/23 IMPRESSION: Healed distal clavicle fracture. Multiple left-sided rib fractures not well demonstrated. No new abnormality. Assessment & Plan Assessment & Plan (1) Right clavicle fracture: Code(s): S42.001A - Fracture of unspecified part of right clavicle, initial encounter for closed fracture Category: Medical Plan She does have an old fracture that is stable and healing. I recommend a course of PT to work on ROM , rtc an periscap stabilization. She should increase activities as tolerated and see me back prn. Orders: Orders PT Evaluation and Treatment 11/17/23 S42.001A - Fracture of unspecified part of right clavicle, initial encounter for closed fracture Patient Instructions: Scribed for Elise Byrd PA-C, by Dinh Jimenez medical assistant dermatology, on 11/17/2023 at 3:00 PM EST. I, Elise Byrd PA-C, have personally reviewed and agree with the information entered by the scribe. Coding Level of Care Code Est Pt Level 3 (46874) Diagnoses Right clavicle fracture S42.001A
== END 2023-11-17 16:20 | disposition home or self-care (01) ==
PROVIDERS: PCP Internal Medicine; Visit Provider Physician Assistant
DX: S42.001A Fracture of unspecified part of right clavicle, initial encounter for closed fracture (principal)
CPT/HCPCS: 99213

== ENCOUNTER → 2023-11-17 14:20 | Outpatient (BNVA) | payer OTHER, SELFPAY | PROVIDERS: PCP Internal Medicine; Visit Provider Physician Assistant | DX: S42.001D Fracture of unspecified part of right clavicle, subsequent encounter for fracture with routine healing (principal); M25.512 Pain in left shoulder; X58.XXXD Exposure to other specified factors, subsequent encounter | CPT/HCPCS: 99212 ==

== ENCOUNTER 2023-11-19 13:33 | Outpatient (AMB) | payer OTHER, SELFPAY ==
[2023-11-19 13:42] VITALS: BP 138/68; PULSE 71; O2SAT 96; BMI 31.7
--- NOTE | 2023-11-19 13:42 | A.OFFVIS_ITS ---
Vital Signs 11/19/23 13:42 Height 4 ft 11 in Weight 157 lb 3.033 oz BMI 31.7 BP 138/68 Blood Pressure Location Lt brachial Position Sitting Pulse 71 Pulse Source Pulse Oximeter Pulse Oximetry (%) 96 Oxygen Delivery Method Room Air Intake Visit Reasons: RA/CM Intake Note: Patient is here for follow up on RA/CM. Photovoltaic Fabrication Technician Name: Guanaco [id number] Accompanied by: CHEMICAL RECLAMATION EQUIPMENT OPERATOR Allergies lorazepam [LORAZEPAM] Allergy (Severe, Verified 11/19/23 13:45) DELIRIUM celecoxib [From Celebrex] Allergy (Intermediate, Verified 11/19/23 13:45) ITCHING tramadol [TRAMADOL] Allergy (Intermediate, Verified 11/19/23 13:45) ITCHING zolpidem [Ambien] Allergy (Unknown, Verified 11/19/23 13:45) unknown Medication List - Last Reconciled 11/19/23 by Briseida Rocha MD acetaminophen 650 mg (2 x 325 mg) PO Q6H PRN Actemra ACTPen (tocilizumab) 162 mg (0.9 mL) subcut Q2W NS albuterol sulfate 90 mcg/actuation 2 puffs inhalation Q4-6H PRN albuterol sulfate 2.5 mg (3 mL) inhalation Q3H PRN amlodipine 10 mg PO DAILY aripiprazole 20 mg PO DAILY atorvastatin 20 mg PO DAILY bisacodyl 10 mg (2 x 5 mg) PO BEDTIME blood sugar diagnostic (FreeStyle Lite Strips) TEST BLOOD SUGAR 8 TIMES EVERY DAY blood-glucose meter (FreeStyle Lite Meter kit) As directed blood-glucose meter,continuous (Dexcom G6 Geothermal Production Manager) As directed calcium citrate 400 mg (2 x 200 mg (950 mg)) PO BID 30 days carvedilol 6.25 mg PO BID cholecalciferol (vitamin D3) (Vitamin D3) 50 mcg PO QAM clonazepam 1 tab PO Q8H PRN clopidogrel 75 mg PO QAM esomeprazole magnesium 40 mg PO DAILY folic acid 1 mg PO DAILY gabapentin 100 mg PO BID hydroxyzine HCl 10 mg PO Q8H PRN insulin aspart (niacinamide) 100 unit/mL (3 mL) (Fiasp FlexTouch U-100 Insulin) 2 - 14 sliding scale doses subcut QIDACHS insulin degludec (Tresiba FlexTouch U-100 insulin) 30 units (0.3 mL) subcut DAILY insulin syringe-needle U-100 (BD Insulin Syringe Ultra-Fine) As directed 3 times per day ipratropium-albuterol 0.5 mg-3 mg(2.5 mg base)/3 mL 3 mL inhalation RQ4H WHILE AWAKE 7 days levothyroxine 112 mcg PO DAILY linaclotide (Linzess) 290 mcg PO QAM losartan 100 mg PO DAILY melatonin 3 mg PO BEDTIME methocarbamol 500 mg PO DAILY nebulizers As directed nut.tx.gluc.intol,lac-free,soy (Glucerna oral liquid) 1 ea PO BID 28 days oxycodone 5 mg PO Q4H PRN oxycodone ER (OxyContin) 10 mg PO BID pen needle, diabetic (Pentips) USE FIVE TIMES DAILY prazosin 6 mg PO BEDTIME sub-q insulin device, 20 unit (V-GO 20 device) As directed use 1 VGO every 24 hrs venlafaxine ER (Effexor XR) 150 mg PO DAILY HPI Comments Details: 73-year-old female with seropositive RA returns for follow-up. Unfortunately, earlier this month patient fell and broke her left clavicle as well as 6 ribs. She is now wearing a sling. She started Actemra about 2 weeks ago. She states that she continues to have some generalized aches. Denies any swelling. Initial history : This is a 72-year-old female who presents for evaluation of joint pain. Patient states that she started having pain and swelling of her hands and feet, ankles over the last 6 months associated with morning stiffness lasting 10 minutes. She has had back pain for years. Meloxicam is not helpful. She is unaware of any family history of autoimmune rheumatic disease. She denies any skin rashes. Denies any history of DVT/PE or recurrent abortions. PENDING SALE TO [facility] Medical History Osteoporosis Hyperlipidemia (04/21/1959) Depressive disorder (04/21/1959) Nutritional anemia (04/21/1959) Shortness of breath Hypothyroidism (04/21/1959) Anemia Chronic gastritis Heart palpitations NSTEMI (non-ST elevated myocardial infarction) Recurrent falls (12/04/11) Iron deficiency anemia (04/21/1959) Fibromyositis (04/21/1959) Eczema (04/21/1959) High risk medication use Hepatitis C antibody positive in blood Screening for osteoporosis Screening for viral disease Joint swelling Overweight (BMI 25.0-29.9) Neck pain Swelling of knee joint, right Intra-abdominal abscess Diabetes Elevated liver function tests Intestinal malabsorption following gastrectomy Obesity (BMI 30-39.9) 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 Hypertension Cholecystitis Hyperlipidemia, unspecified Essential hypertension Atherosclerotic cardiovascular disease Fibromyalgia Folliculitis Anxiety Depression History of myocardial infarction Diabetes type 1, uncontrolled Hyperparathyroidism due to vitamin D deficiency Dyslipidemia Rona's disease Hypothyroidism Surgical History History of bypass gastroenterostomy (11/13/17) H/O gastric bypass S/P laparoscopic cholecystectomy Status post gastric bypass for obesity History of esophagogastroduodenoscopy (EGD) H/O colonoscopy History of laparoscopic cholecystectomy History of bladder suspension procedure Status post laser cataract surgery of both eyes Hx of appendectomy Family History Father No problems noted. Mother CVA (cerebral vascular accident) Sister Hypertension Brother Hypertension Liver cancer Social History Household Members: None Housing: Apartment Are you a primary pet care technician to a significant other at home: No Do you presently have visiting nurse or other home services: Yes Unable to assess alcohol history related to: Unable to respond Alcohol intake: never Patient Tobacco Use Status: Never used Tobacco service: No Current occupational status: disabled Current occupation: right hand dominant Female Reproductive History Menstrual Total pregnancies: 3 Full term: 3 Physical Exam Vital Signs: Last Vital Signs Pulse 71 11/19/23 13:42 BP 138/68 11/19/23 13:42 Pulse Ox 96 11/19/23 13:42 Oxygen Delivery Method Room Air 11/19/23 13:42 BMI result Body Mass Index 31.7 Const General: cooperative, healthy appearing and comfortable Nutritional Appearance: obese Orientation/consciousness: patient oriented x3 Limitations: ambulation with cane HEENT Head: Yes normocephalic and Yes atraumatic Resp Effort & Inspection: normal respiratory effort and able to speak in complete sentences Auscultation: clear to auscultation bilaterally Skin General skin exam: no rashes or lesions noted Neuro General: patient oriented x3 Extrem Other: Prominent RA deformities in both hands with some ulnar deviation at the MCPs Right 4th MCP tenderness. I think the puffiness of her MCPs bilaterally has improved overall Deformity of left ring finger and pain with any range of motion of left ring finger Normal range of motion of right shoulder Left arm in a sling No knee pain, swelling or warmth No ankle swelling or tenderness bilaterally No MTP tenderness and negative MTP squeeze test bilaterally Normal nailfold capillaroscopy Kyphotic Assessment & Plan Assessment & Plan (1) Seropositive rheumatoid arthritis: Comment: +RF -ve CCP dx 02/10 Enbrel 02/2023 partially effective DC 09/2023 Actemra 10/2023 Code(s): M05.9 - Rheumatoid arthritis with rheumatoid factor, unspecified Category: Medical Plan: This is a 73-year-old female with seropositive RA who returns for follow-up. She just started Actemra 2 weeks ago. I think it is too early to evaluate for any improvement with Actemra but I believe puffiness of her MCPs is improved. Continue Actemra 162 mg every other week Labs before next visit in 3 months (2) Hepatitis C antibody positive in blood: Code(s): R76.8 - Other specified abnormal immunological findings in serum Category: Medical Plan: Positive hepatitis-C antibody with negative hep C RNA. Labs in 2021 showed negative hepatitis-C antibody. Unclear cause. Patient might have cleared hepatitis C infection or a lab error. (3) High risk medication use: Code(s): Z79.899 - Other [facility] (current[facility] drug therapy Category: Medical Plan: Side effects of Actemra were discussed with the patient in detail including increased risk of infection, reactivation of latent TB, possible increased risk of solid and skin tumors. Patient fully aware. Advised patient to seek medical care [facility] if patient has an infection and advised patient to stop the medication until the infection is resolved. (4) 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: Code(s): S63.659A - Sprain of metacarpophalangeal joint of unspecified finger, initial encounter Category: Medical Qualifiers: Encounter type: initial encounter Qualified Code(s): S63.659A - Sprain of metacarpophalangeal joint of unspecified finger, initial encounter Plan: I think this is due to poorly-controlled rheumatoid arthritis. She was evaluated by hand surgeon and surgery was suggested but patient's HbA1c is above 8%. (5) Osteoporosis: Comment: DEXA 05/2023 Left femur neck T-score-3.8 Left femur total-4.1 L-spine T-score -3.6 Left clavicle and multiple rib fractures 10/2023 Code(s): M81.0 - Age-related osteoporosis without current pathological fracture Category: Medical Qualifiers: Osteoporosis type: age-related Presence of current pathological fracture: without current pathological fracture Qualified Code(s): M81.0 - Age- related osteoporosis without current pathological fracture Plan: DEXA shows severe osteoporosis. She received 1st dose of Reclast 09/2023, infusion was uneventful. Labs done soon after the fracture showed significantly elevated PTH. Follow-up with brick burner Plan I spent 26 minutes reviewing patient's chart, evaluating patient, ordering diagnostic workup, counseling patient and documenting in the chart Orders: Orders Comprehensive Met. Panel 3 Months M05.9 - Rheumatoid arthritis with rheumatoid factor, unspecified Complete Blood Count Auto Diff 3 Months M05.9 - Rheumatoid arthritis with rheumatoid factor, unspecified C Reactive Protein 3 Months M05.9 - Rheumatoid arthritis with rheumatoid factor, unspecified Erythrocyte Sedimentation Rate 3 Months M05.9 - Rheumatoid arthritis with rheumatoid factor, unspecified Coding Level of Care Code Est Pt Level 4 (22792) Diagnoses Seropositive rheumatoid arthritis M05.9 Hepatitis C antibody positive in blood R76.8 High risk medication use Z79.899 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, initial encounter S63.659A Encounter type: initial encounter Age-related osteoporosis without current pathological fracture M81.0 Osteoporosis type: age-related Presence of current pathological fracture: without current pathological fracture
== END 2023-11-19 14:23 | disposition home or self-care (01) ==
PROVIDERS: PCP Internal Medicine; Visit Provider Student in an Organized Health Care Education/Training Program
DX: M05.79 Rheumatoid arthritis with rheumatoid factor of multiple sites without organ or systems involvement (principal); R76.8 Other specified abnormal immunological findings in serum; S63.659A Sprain of metacarpophalangeal joint of unspecified finger, initial encounter; Z79.899 Other long term (current) drug therapy; M81.0 Age-related osteoporosis without current pathological fracture
CPT/HCPCS: 99214

== ENCOUNTER → 2023-11-19 13:33 | Outpatient (BNVA) | payer OTHER, SELFPAY | PROVIDERS: PCP Internal Medicine; Visit Provider Student in an Organized Health Care Education/Training Program | DX: M05.9 Rheumatoid arthritis with rheumatoid factor, unspecified (principal); M81.0 Age-related osteoporosis without current pathological fracture; R76.8 Other specified abnormal immunological findings in serum; S63.654A Sprain of metacarpophalangeal joint of right ring finger, initial encounter; Z79.899 Other long term (current) drug therapy | CPT/HCPCS: 99212 ==

== ENCOUNTER 2023-11-25 10:33 | Outpatient (AMB) | payer OTHER, SELFPAY ==
--- NOTE | 2023-11-25 11:15 | MHC.AMDMED ---
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 Name: [facility] [place] Accompanied by: Other Relationship Allergies lorazepam [LORAZEPAM] Allergy (Severe, Verified 11/19/23 13:45) DELIRIUM celecoxib [From Celebrex] Allergy (Intermediate, Verified 11/19/23 13:45) ITCHING tramadol [TRAMADOL] Allergy (Intermediate, Verified 11/19/23 13:45) ITCHING zolpidem [Ambien] Allergy (Unknown, Verified 11/19/23 13:45) unknown HPI Comprehensive Diabetes Asmnt Most Recent Diabetes Results: Creatinine 1.29 mg/dL (0.5-1.4) 05/12/23 Blood Urea Nitrogen 19 mg/dL (9-16) H 05/12/23 Sodium 139 mmol/L (135-145) 05/12/23 Potassium 4.2 mmol/L (3.3-5.1) 05/12/23 Chloride 102 mmol/L (96-108) 05/12/23 Carbon Dioxide 28 mmol/L (22-29) 05/12/23 Calcium 9.8 mg/dL (8.4-10.2) 05/12/23 AST 22 U/L (5-31) 05/12/23 ALT 26 U/L (0-31) 05/12/23 Total Protein 6.5 g/dL (6.5-8.0) 05/12/23 Albumin 3.9 g/dL (3.5-5.0) 05/12/23 [facility] Medical History Osteoporosis Hyperlipidemia (04/21/1959) Depressive disorder (04/21/1959) Nutritional anemia (04/21/1959) Shortness of breath Hypothyroidism (04/21/1959) Anemia Chronic gastritis Heart palpitations NSTEMI (non-ST elevated myocardial infarction) Recurrent falls (12/04/11) Iron deficiency anemia (04/21/1959) Fibromyositis (04/21/1959) Eczema (04/21/1959) High risk medication use Hepatitis C antibody positive in blood Screening for osteoporosis Screening for viral disease Joint swelling Overweight (BMI 25.0-29.9) Neck pain Swelling of knee joint, right Intra-abdominal abscess Diabetes Elevated liver function tests Intestinal malabsorption following gastrectomy Obesity (BMI 30-39.9) 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 Hypertension Cholecystitis Hyperlipidemia, unspecified Essential hypertension Atherosclerotic cardiovascular disease Fibromyalgia Folliculitis Anxiety Depression History of myocardial infarction Diabetes type 1, uncontrolled Hyperparathyroidism due to vitamin D deficiency Dyslipidemia Rona's disease Hypothyroidism Surgical History History of bypass gastroenterostomy (11/13/17) H/O gastric bypass S/P laparoscopic cholecystectomy Status post gastric bypass for obesity History of esophagogastroduodenoscopy (EGD) H/O colonoscopy History of laparoscopic cholecystectomy History of bladder suspension procedure Status post laser cataract surgery of both eyes Hx of appendectomy Family History Father No problems noted. Mother CVA (cerebral vascular accident) Sister Hypertension Brother Hypertension Liver cancer Social History Household Members: None Housing: Apartment Are you a primary neonatal critical care nurse to a significant other at home: No Do you presently have visiting nurse or other home services: Yes Unable to assess alcohol history related to: Unable to respond Alcohol intake: never Patient Tobacco Use Status: Never used Tobacco service: No Current occupational status: disabled Current occupation: right hand dominant Assessment & Plan Assessment & Plan (1) Diabetes type 1, uncontrolled: Code(s): E10.65 - Type 1 diabetes mellitus with hyperglycemia Qualifiers: Glycemic state: with hypoglycemia Coma presence: without coma Qualified Code(s): E10.649 - Type 1 diabetes mellitus with hypoglycemia without coma Plan: Pt at visit for Vgo 20 Training Pt brought Vgo patch, EZ insulin fill, she did not bring vial of mealtime insulin Patient's prescription reads take 150-200 mg por dL 4 unidades 201-250 mg por dL 6 unidades 251-300 mg/dL 8 unidades 301-350 mg/dL 10 unidades 351-400 mg por dL 12 unidades M?s de 400 mg por dL 14 unidades See new insulin plan below Instructed patient to wash your hands Demonstrated for patient how to fill patch from insulin vial, with EZ filler Remove patch from EZ filler Prepare site where you will place patch with either alcohol or soap and water, avoid waist band and belt line Do not insert through scar tissue, piercings and tattoos be sure to place patch at least 2 in from belly button. If you have excess body hair adhesive will attach better to clean shaven skin Instructed patient to be sure to rotate patch regularly Remove plastic cover from adhesive side Press button at top of patch to release cannula Press down firmly on patch with palm of your hand for 10 seconds Demonstrated how to use buttons to give clicks of insulin Instructed patient on how to administer mealtime insulin, instructed patient that each click is equal to 2 units of mealtime insulin Demonstrated how to use ridged button on side of patch to withdraw needle when it is time to change insulin patch Patch must be changed every 24 hours Patient will follow-up with clinical nurse educator as instructed Portions of this note were created using voice recognition software, please excuse any words or phrases that may have been misinterpreted. Patient Instructions: Llevar vial de Fiasp a la pr?xima visita No tome Tresiba la ma?jimena de la alondra con el educador en diabetes. Menos de 100 dL por mg 2 unidades - 1 clics 101-150 mg por dL 4 unidades- 2 clics 151-200 mg por dL 6 unidades- 3 clics 201-250 mg por dL 8 unidades- 4 clics 251-300 mg por dL 10 unidades- 5 clics M?s de 301mg por dL 12 unidades- 6 clics Coding Level of Care Code Est Pt Level 1 (30065) Diagnoses Uncontrolled type 1 diabetes mellitus with hypoglycemia without coma E10.649 Glycemic state: with hypoglycemia Coma presence: without coma
== END 2023-11-25 11:16 | disposition home or self-care (01) ==
PROVIDERS: PCP Internal Medicine; Visit Provider Registered Nurse Diabetes Educator
DX: E10.649 Type 1 diabetes mellitus with hypoglycemia without coma (principal)

== ENCOUNTER → 2023-11-25 10:33 | Outpatient (BNVA) | payer OTHER, SELFPAY | PROVIDERS: PCP Internal Medicine; Visit Provider Registered Nurse Diabetes Educator | DX: E10.649 Type 1 diabetes mellitus with hypoglycemia without coma (principal); Z79.4 Long term (current) use of insulin | CPT/HCPCS: 99211 ==

== ENCOUNTER 2023-12-01 08:50 | Outpatient (AMB) | payer OTHER, SELFPAY ==
--- NOTE | 2023-12-01 09:16 | A.OFFVIS_ITS ---
Intake Intake Visit Reasons: 60 min Vgo teaching/CONFIRMED Sales Enablement Lead Required: Yes Sales Enablement Lead Language: Stacking Machine Operator Services: Sales Enablement Lead Present Sales Enablement Lead Name: Husam Accompanied by: Self / Same As Patient Allergies lorazepam [LORAZEPAM] Allergy (Severe, Verified 11/19/23 13:45) DELIRIUM celecoxib [From Celebrex] Allergy (Intermediate, Verified 11/19/23 13:45) ITCHING tramadol [TRAMADOL] Allergy (Intermediate, Verified 11/19/23 13:45) ITCHING zolpidem [Ambien] Allergy (Unknown, Verified 11/19/23 13:45) unknown HPI Comprehensive Diabetes Asmnt Most Recent Diabetes Results: Creatinine 1.29 mg/dL (0.5-1.4) 05/12/23 Blood Urea Nitrogen 19 mg/dL (9-16) H 05/12/23 Sodium 139 mmol/L (135-145) 05/12/23 Potassium 4.2 mmol/L (3.3-5.1) 05/12/23 Chloride 102 mmol/L (96-108) 05/12/23 Carbon Dioxide 28 mmol/L (22-29) 05/12/23 Calcium 9.8 mg/dL (8.4-10.2) 05/12/23 AST 22 U/L (5-31) 05/12/23 ALT 26 U/L (0-31) 05/12/23 Total Protein 6.5 g/dL (6.5-8.0) 05/12/23 Albumin 3.9 g/dL (3.5-5.0) 05/12/23 PENDING SALE TO [facility] Medical History Osteoporosis Hyperlipidemia (04/21/1959) Depressive disorder (04/21/1959) Nutritional anemia (04/21/1959) Shortness of breath Hypothyroidism (04/21/1959) Anemia Chronic gastritis Heart palpitations NSTEMI (non-ST elevated myocardial infarction) Recurrent falls (12/04/11) Iron deficiency anemia (04/21/1959) Fibromyositis (04/21/1959) Eczema (04/21/1959) High risk medication use Hepatitis C antibody positive in blood Screening for osteoporosis Screening for viral disease Joint swelling Overweight (BMI 25.0-29.9) Neck pain Swelling of knee joint, right Intra-abdominal abscess Diabetes Elevated liver function tests Intestinal malabsorption following gastrectomy Obesity (BMI 30-39.9) 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 Hypertension Cholecystitis Hyperlipidemia, unspecified Essential hypertension Atherosclerotic cardiovascular disease Fibromyalgia Folliculitis Anxiety Depression History of myocardial infarction Diabetes type 1, uncontrolled Hyperparathyroidism due to vitamin D deficiency Dyslipidemia Rona's disease Hypothyroidism Surgical History History of bypass gastroenterostomy (11/13/17) H/O gastric bypass S/P laparoscopic cholecystectomy Status post gastric bypass for obesity History of esophagogastroduodenoscopy (EGD) H/O colonoscopy History of laparoscopic cholecystectomy History of bladder suspension procedure Status post laser cataract surgery of both eyes Hx of appendectomy Family History Father No problems noted. Mother CVA (cerebral vascular accident) Sister Hypertension Brother Hypertension Liver cancer Social History Household Members: None Housing: Apartment Are you a primary foster care therapist to a significant other at home: No Do you presently have visiting nurse or other home services: Yes Unable to assess alcohol history related to: Unable to respond Alcohol intake: never Patient Tobacco Use Status: Never used Tobacco service: No Current occupational status: disabled Current occupation: right hand dominant Assessment & Plan Assessment & Plan (1) Diabetes type 1, uncontrolled: Code(s): E10.65 - Type 1 diabetes mellitus with hyperglycemia Qualifiers: Glycemic state: with hypoglycemia Coma presence: without coma Qualified Code(s): E10.649 - Type 1 diabetes mellitus with hypoglycemia without coma Plan: Patient was anticipating starting Vgo 20. Provider expressed concerns regarding patient having type 1 diabetes in using V-Go 20. Discussed with Pt and her BUFFET SERVER CeQue patch, workers compensation claims adjuster, vial of mealtime insulin and change by stickers Discussed insertion sites where you will place patch. Clean site with either alcohol or soap and water, avoid waist band and belt line Do not insert through scar tissue, piercings and tattoos be sure to place patch at least 2 in from belly button. Instructed patient to be sure to rotate patch regularly Instructed patient on how to administer mealtime insulin, instructed patient that each click is equal to 2 units of mealtime insulin. Patient has fiasp vials but will continue MDI until she receives new insulin delivery patch Patient will follow-up with certified lactation educator as instructed Portions of this note were created using voice recognition software, please excuse any words or phrases that may have been misinterpreted. Coding Level of Care Code Est Pt Level 1 (37347) Diagnoses Uncontrolled type 1 diabetes mellitus with hypoglycemia without coma E10.649 Glycemic state: with hypoglycemia Coma presence: without coma
== END 2023-12-01 09:18 | disposition home or self-care (01) ==
PROVIDERS: PCP Internal Medicine; Visit Provider Registered Nurse Diabetes Educator
DX: E10.649 Type 1 diabetes mellitus with hypoglycemia without coma (principal)

== ENCOUNTER → 2023-12-01 08:50 | Outpatient (BNVA) | payer OTHER, SELFPAY | PROVIDERS: PCP Internal Medicine; Visit Provider Registered Nurse Diabetes Educator | DX: E10.649 Type 1 diabetes mellitus with hypoglycemia without coma (principal) | CPT/HCPCS: 99211 ==

== ENCOUNTER 2023-12-06 10:32 | Emergency (ER) | payer OTHER, SELFPAY ==
--- NOTE | ~2023-12-06 | XR_ITS ---
EXAMINATION: XR HIP, RIGHT , AP pelvis CLINICAL INFORMATION: Pain COMPARISON: Prior study July 2023 TECHNIQUE: Frontal and lateral views of the hip acquired. , AP pelvis FINDINGS: There is no evidence of acute fracture or dislocation. There are mild degenerative arthritic changes of the hip evident by sclerotic changes of the acetabular roof and narrowing of the joint space. Mild degenerative changes of the symphysis pubis. Mild degenerative changes of the SI joints. Adjacent pubic rami are intact. There are vascular calcifications. Surrounding soft tissues are unremarkable. XR/XR hip RT w PEL1V IMPRESSION: 1. Mild degenerative arthritis. 2. No fracture. 3. No radiographic evidence of bone erosions.
--- NOTE | ~2023-12-06 | US_ITS ---
EXAMINATION: US VENOUS ULTRASOUND WITH DOPPLER LOWER EXTREMITY, RIGHT CLINICAL INFORMATION: Pain COMPARISON: None available. TECHNIQUE: Ultrasound of the deep veins is performed from the right hip to the calf with compression sonography and color and pulse Doppler assessment. Spectral analysis with color-flow imaging is performed. FINDINGS: automation technologist reports that the examination was partially limited by patient's body habitus. The superficial femoral vein in the mid to lower thigh was predominantly evaluated with use of color Doppler imaging. The common femoral vein is compressible and exhibits a normal phasic waveform; this suggests that the iliac veins are widely patent above. Within the proximal thigh, the visualized profunda femoris vein is normal. The examined greater saphenous vein and saphenofemoral junction are normal. Superficial femoral vein has a patent appearance in the proximal, mid and distal thigh. Popliteal vein is normal to the level of the trifurcation. On compression marks scale and color Doppler images, the visualized posterior tibial and peroneal veins of the calf are patent. No evidence of Young's cyst. US/US venous duplex LE RT IMPRESSION: No evidence of deep vein thrombosis in the right lower extremity.
--- NOTE | 2023-12-06 10:36 | ED.EXTPRO ---
HPI - Extremity Problem General Chief complaint: Extremity Injury, Lower Stated complaint: LEG PAIN X4DAYS PER EMS Time Seen by Provider: 12/06/23 10:34 Source: patient, EMS, RN notes reviewed and old records reviewed Mode of arrival: EMS Limitations: no limitations History of Present Illness ED Provider: Lisa Jeffery PA-C HPI Narrative: 73 yo female with history of RA, anemia, recurrent falls, DM, hypothyroidism, depression/anxiety, OA, OP, history of left clavicular fracture and multiple rib fractures resulting in a flail chest and may who presents to the ER for evaluation of nontraumatic right lateral thigh pain for the last 4 days. She reports the pain is 10/10. It is worse with ambulation. She denies any swelling of the leg. No chest pain or SOB. No fever, chills, redness of the leg. No known injury. Denies recent falls. MD Complaint: extremity pain Onset (ago): day(s) (4) Pain Consistency: constant Location: right and lower extremity Severity scale (1-10): 10 Quality: stabbing and aching Radiation: proximal Relieving factors: immobilization and rest Exacerbating factors: range of motion, weight bearing, walking and palpation Associated symptoms: denies other symptoms Related Data Home Medications ?Medication ?Instructions ?Recorded ?Confirmed venlafaxine 150 mg 150 mg PO DAILY 01/28/20 11/19/23 capsule,extended release 24 hr (Effexor XR) hydroxyzine HCl 10 mg tablet 10 mg PO Q8H PRN Anxiety 02/22/20 11/19/23 clonazepam 0.5 mg tablet 1 tab PO Q8H PRN anxiety 01/02/21 11/19/23 blood-glucose meter,continuous 01/11/22 11/19/23 (Dexcom G6 Lead Inspector) amlodipine 10 mg tablet 10 mg PO DAILY 05/14/22 11/19/23 prazosin 2 mg capsule 6 mg PO BEDTIME 05/14/22 11/19/23 aripiprazole 20 mg tablet 20 mg PO DAILY 01/10/23 11/19/23 losartan 100 mg tablet 100 mg PO DAILY 07/30/23 11/19/23 atorvastatin 20 mg tablet 20 mg PO DAILY 08/21/23 11/19/23 gabapentin 100 mg capsule 100 mg PO BID 08/21/23 11/19/23 melatonin 3 mg tablet 3 mg PO BEDTIME 08/21/23 11/19/23 insulin aspart 2 - 14 sliding scale dose subcut 09/09/23 11/19/23 (niacinamide)(U-100) 100 unit/mL(3 QIDACHS mL) subcutaneous pen (Fiasp FlexTouch U-100 Insulin) methocarbamol 500 mg tablet 500 mg PO DAILY 09/09/23 11/19/23 linaclotide 290 mcg capsule 290 mcg PO QAM 10/16/23 11/19/23 (Linzess) Previous Rx's ?Medication ?Instructions ?Recorded insulin syringe-needle U-100 0.3 #100 ea 06/13/20 mL 31 gauge x 5/16 (BD Insulin Syringe Ultra-Fine) blood-glucose meter (Getyooyle #1 ea 05/20/22 Lite Meter kit) insulin degludec 100 unit/mL (3 30 unit (0.3 mL) subcut DAILY #15 03/17/23 mL) subcutaneous pen (Tresiba mL FlexTouch U-100 insulin) albuterol sulfate 90 mcg/actuation 2 puff inhalation Q4-6H PRN 04/10/23 aerosol inhaler shortness of breath or wheezing #8.5 grams albuterol sulfate 2.5 mg/3 mL 2.5 mg (3 mL) inhalation Q3H PRN 04/18/23 (0.083 %) solution for nebulization sob #180 mL ipratropium 0.5 mg-albuterol 3 mg 3 ml inhalation RQ4H WHILE AWAKE 7 04/18/23 (2.5 mg base)/3 mL nebulization days #180 mL soln nebulizers #1 ea 04/18/23 blood sugar diagnostic (FreeStyle #200 strips 04/29/23 Lite Strips) folic acid 1 mg tablet 1 mg PO DAILY #90 tabs 05/28/23 levothyroxine 112 mcg tablet 112 mcg PO DAILY #30 tabs 07/02/23 esomeprazole magnesium 40 mg 40 mg PO DAILY #30 caps 08/21/23 capsule,delayed release acetaminophen 325 mg tablet 650 mg (2 x 325 mg) PO Q6H PRN 09/16/23 Pain, Mild (Pain Scale 1-3) #1 tab oxycodone 10 mg tablet,crush 10 mg PO BID #6 tabs 09/16/23 resistant,extended release 12 hr (OxyContin) oxycodone 5 mg tablet 5 mg PO Q4H PRN Pain, 09/16/23 Moderate(Pain Scale 4-6) #18 tabs calcium citrate 200 mg (950 mg) 400 mg (2 x 200 mg (950 mg)) PO 10/16/23 tablet BID 30 days #120 tabs clopidogrel 75 mg tablet 75 mg PO QAM #30 tabs 10/16/23 nut.tx.gluc.intol,lac-free,soy 1 ea PO BID 28 days #2,880 mL 10/16/23 (Glucerna oral liquid) carvedilol 6.25 mg tablet 6.25 mg PO BID #60 tabs 10/22/23 pen needle, diabetic 32 gauge x #200 ea 10/28/23 (Pentips) Actemra ACTPen 162 mg/0.9 mL 162 mg (0.9 mL) subcut Q2W #1.8 mL 10/30/23 subcutaneous pen injector (tocilizumab) cholecalciferol (vitamin D3) 50 50 mcg PO QAM #30 caps 11/27/23 mcg (2,000 unit) capsule (Vitamin D3) bisacodyl 5 mg tablet,delayed 10 mg (2 x 5 mg) PO BEDTIME #60 12/01/23 release tabs bolus insulin pump, 200 unit 2 #10 ea 12/02/23 unit bolus insulin patch pump, 200 unit, disposable (CeQur Simplicity) bolus insulin pump, 200 unit 2 #10 ea 12/02/23 unit bolus insulin patch pump, 200 unit, disposable (CeQur Simplicity) diabetic supplies, miscellan. #1 ea 12/02/23 (CeQur Simplicity Database Support) diabetic supplies, miscellan. #1 ea 12/02/23 (CeQur Simplicity Database Support) cyclobenzaprine 10 mg tablet 10 mg PO TID PRN muscle spasm #10 12/06/23 tabs Allergies Allergy/AdvReac Type Severity Reaction Status Date / Time lorazepam [LORAZEPAM] Allergy Severe DELIRIUM Verified 12/06/23 10:48 celecoxib [From Celebrex] Allergy Intermediate ITCHING Verified 12/06/23 10:48 tramadol [TRAMADOL] Allergy Intermediate ITCHING Verified 12/06/23 10:48 zolpidem [Ambien] Allergy Unknown unknown Verified 12/06/23 10:48 Review of Systems Review of Systems: Yes all other systems are reviewed and are negative [facility] Past Medical History Medical History Osteoporosis Hyperlipidemia (04/21/1959) Depressive disorder (04/21/1959) Nutritional anemia (04/21/1959) Shortness of breath Hypothyroidism (04/21/1959) Anemia Chronic gastritis Heart palpitations NSTEMI (non-ST elevated myocardial infarction) Recurrent falls (12/04/11) Iron deficiency anemia (04/21/1959) Fibromyositis (04/21/1959) Eczema (04/21/1959) High risk medication use Hepatitis C antibody positive in blood Screening for osteoporosis Screening for viral disease Joint swelling Overweight (BMI 25.0-29.9) Neck pain Swelling of knee joint, right Intra-abdominal abscess Diabetes Elevated liver function tests Intestinal malabsorption following gastrectomy Obesity (BMI 30-39.9) 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 Hypertension Cholecystitis Hyperlipidemia, unspecified Essential hypertension Atherosclerotic cardiovascular disease Fibromyalgia Folliculitis Anxiety Depression History of myocardial infarction Diabetes type 1, uncontrolled Hyperparathyroidism due to vitamin D deficiency Dyslipidemia Rona's disease Hypothyroidism Surgical History History of bypass gastroenterostomy (11/13/17) H/O gastric bypass S/P laparoscopic cholecystectomy Status post gastric bypass for obesity History of esophagogastroduodenoscopy (EGD) H/O colonoscopy History of laparoscopic cholecystectomy History of bladder suspension procedure Status post laser cataract surgery of both eyes Hx of appendectomy Family History Family History Father No problems noted. Mother CVA (cerebral vascular accident) Sister Hypertension Brother Hypertension Liver cancer Social History Social History Household Members: None Housing: Apartment Are you a primary interior plant caretaker to a significant other at home: No Do you presently have visiting nurse or other home services: Yes Unable to assess alcohol history related to: Unable to respond Alcohol intake: never Patient Tobacco Use Status: Never used Tobacco Smoked in Last 30 Days: No Use of substances other than those prescribed or required for medical reasons: No Advance Directives: No Advance Directives Information Provided: No Do you have a plan to hurt others: No Plan service: No Current occupational status: disabled Current occupation: right hand dominant Physical Exam Vital Signs: Vital Signs: Last Vital Signs Temp 98.3 F 12/06/23 15:14 Pulse 88 12/06/23 15:14 Resp 16 12/06/23 15:14 BP 186/74 H 12/06/23 15:14 Pulse Ox 97 12/06/23 15:14 O2 Del Method Room Air 12/06/23 15:14 BMI result Body Mass Index 31.9 Appearance: Alert. Oriented X3. No acute distress. Head: normocephalic, atraumatic. Eyes: Pupils equal, round and reactive to light. ENT: Pharynx normal. No tonsillar swelling or exudate. Neck: Normal inspection. Neck supple. CVS: Normal heart rate and rhythm. Pulses normal. Respiratory: No respiratory distress. Breath sounds normal. Skin: Skin warm and dry. Normal skin color. Normal skin turgor. No rashes. Extremities: No lower extremity edema. No joint swelling. Right upper lateral thigh and lateral hip tenderness without any deformity. Neuro/psych: Oriented X 3. No motor deficit. No sensory deficit. CN II-XII intact. Normal speech and cognition. Steady gait Course Reevaluation(s) Reevaluation #1: He is unremarkable, mild osteoarthritis of the right hip. She is up ambulating with a steady gait with her cane with no assistance. She does not want to go to short-term rehab. She is stable for discharge home with outpatient follow-up p.r.n. Time: 13:43 Medications Administered Discontinued Medications Generic Name Dose Route Start Last Admin Trade Name Lesterq PRN Reason Stop Dose Admin Acetaminophen 975 mg 12/06/23 10:57 12/06/23 11:17 Acetaminophen 325 Mg Tablet PO 12/06/23 10:58 975 mg ONCE ONE Administration Oxycodone HCl 5 mg 12/06/23 10:57 12/06/23 11:17 Oxycodone Hcl Immed Release 5 Mg Tablet PO 12/06/23 10:58 5 mg ONCE ONE Administration Medical Decision Making Medical Decision Making MDM Narrative: 73 yo female with history of RA, anemia, recurrent falls, DM, hypothyroidism, depression/anxiety, OA, OP, history of left clavicular fracture and multiple rib fractures resulting in a flail chest and may who presents to the ER for evaluation of nontraumatic right lateral thigh pain for the last 4 days. She reports severe pain with walking. Exam was reassuring with some lateral thigh tenderness, hip tenderness without any deformity. She was able to range the hip with passive movement. Ultrasound was done to rule out DVT which was negative. X-ray of the hip and pelvis showed some mild degenerative arthritis. She was seen by Physical therapy and did well. Recommending DC home She was given 1 dose of oxycodone in the ER and she was up ambulating with steady gait, no assistance. Etiology most likely muscular in nature. Will send home with short course of muscle relaxers, encouraged outpatient follow-up. Stable for discharge home Differential Diagnosis Differential Diagnoses: The differential diagnosis associated with the presentation includes Osteoarthritis, IT band syndrome, DVT, hip fracture, pelvic fracture, musculoskeletal pain Lab Data MDM Lab Attestation statement: I reviewed the patient's lab results. Labs: Lab Results 12/06/23 Range/Units 13:39 POC Glucose 189 H (60-115) mg/dL Independent Interpretation I performed an independent interpretation of an: Plain X-Ray and Ultrasound Interpretation: Ultrasound with no appreciated DVT, x-ray without any acute fracture of the hip Radiology Impression Discussion of test interpretation with radiology: I have reviewed the radiologist's reading. Radiologist Impression: XR/XR hip RT w PEL1V IMPRESSION: 1. Mild degenerative arthritis. 2. No fracture. 3. No radiographic evidence of bone erosions. Independent Historian Clinical information obtained from an independent historian. History obtained from or confirmed by: EMS External Record Review External record reviewed: Office record, Outpatient record, Prior outpatient labs and Prior outpatient radiology Prescription Management I considered prescription management with: Pain Medication Chronic Conditions Patient?s care impacted by: Diabetes Critical Care Time Critical Care Time Critical Care Time: No Discharge Plan Discharge Clinical Impression: Leg pain, right Patient Disposition: Home, Self-Care Instructions: Leg Pain (ED) Additional Instructions: Your ultrasound today was normal, no evidence of blood clot seen in your leg. Your x-ray showed some mild osteoarthritis in your hip. Recommend taking Tylenol and ibuprofen for pain. Take the prescribed muscle relaxer as needed for pain. Follow-up with your primary care doctor. If you develop new or worsening symptoms call 911 or come back to the ER for further evaluation. Prescriptions: New cyclobenzaprine 10 mg tablet 10 mg PO TID PRN (Reason: muscle spasm) Qty: 10 0RF No Action (DME) insulin syringe-needle U-100 [BD Insulin Syringe Ultra-Fine] 0.3 mL 31 gauge x 5/16 syringe See Rx Instructions .ROUTE .MEDSUPPLY Qty: 100 0RF Rx Instructions: As directed 3 times per day (DME) blood-glucose meter [FreeStyle Lite Meter] Kit See Rx Instructions .ROUTE .MEDSUPPLY Qty: 1 0RF Rx Instructions: As directed Tresiba FlexTouch U-100 100 unit/mL (3 mL) insulin pen 30 unit subcut DAILY Qty: 15 3RF (DME) FreeStyle Lite Strips Strip See Rx Instructions .ROUTE .COMPLEX Qty: 200 11RF Dose Instruction: TEST BLOOD SUGAR 8 TIMES EVERY DAY Rx Instructions: TEST BLOOD SUGAR 8 TIMES EVERY DAY levothyroxine 112 mcg tablet 112 mcg PO DAILY Qty: 30 5RF clopidogrel 75 mg tablet 75 mg PO QAM Qty: 30 7RF calcium citrate 200 mg (950 mg) tablet 400 mg PO BID 30 Days Qty: 120 4RF carvedilol 6.25 mg tablet 6.25 mg PO BID Qty: 60 2RF (DME) pen needle, diabetic [Pentips] 32 gauge x 5/32 needle See Rx Instructions .ROUTE .COMPLEX Qty: 200 7RF Dose Instruction: USE FIVE TIMES DAILY Rx Instructions: USE FIVE TIMES DAILY Actemra ACTPen 162 mg/0.9 mL pen injector 162 mg subcut Q2W Qty: 1.8 2RF cholecalciferol (vitamin D3) [Vitamin D3] 50 mcg (2,000 unit) capsule 50 mcg PO QAM Qty: 30 4RF bisacodyl 5 mg tablet,delayed release (DR/EC) 10 mg PO BEDTIME Qty: 60 6RF (DME) CeQur Simplicity 2 unit device See Rx Instructions .Route Qty: 10 11RF Rx Instructions: As directed every 3 days (DME) CeQur Simplicity Database Support Misc See Rx Instructions .Route Qty: 1 1RF Rx Instructions: As directed (DME) CeQur Simplicity 2 unit device See Rx Instructions .ROUTE .MEDSUPPLY Qty: 10 11RF Rx Instructions: As directed (DME) CeQur Simplicity Database Support Misc See Rx Instructions .ROUTE .MEDSUPPLY Qty: 1 1RF Rx Instructions: As directed folic acid 1 mg Tablet 1 mg PO DAILY Qty: 90 4RF clonazepam 0.5 mg tablet 1 tab PO Q8H PRN (Reason: anxiety) methocarbamol 500 mg tablet 500 mg PO DAILY Fiasp FlexTouch U-100 Insulin 100 unit/mL (3 mL) insulin pen 2 - 14 sliding scale dose subcut QIDACHS acetaminophen 325 mg Tablet 650 mg PO Q6H PRN (Reason: Pain, Mild (Pain Scale 1-3)) Qty: 1 0RF oxycodone 5 mg Tablet 5 mg PO Q4H PRN (Reason: Pain, Moderate(Pain Scale 4-6)) Qty: 18 0RF Rx Instructions: Partial Fill upon patient request. oxycodone [OxyContin] 10 mg Tablet,Oral Only,Ext.Rel.12 Hr 10 mg PO BID Qty: 6 0RF Rx Instructions: Partial Fill upon patient request. albuterol sulfate 90 mcg/actuation HFA aerosol inhaler 2 puff inhalation Q4-6H PRN (Reason: shortness of breath or wheezing) Qty: 8.5 0RF ipratropium-albuterol 0.5 mg-3 mg(2.5 mg base)/3 mL Solution For Nebulization 3 ml inhalation RQ4H WHILE AWAKE 7 Days Qty: 180 2RF albuterol sulfate 2.5 mg /3 mL (0.083 %) Solution For Nebulization 2.5 mg inhalation Q3H PRN (Reason: sob) Qty: 180 2RF (DME) nebulizers Misc See Rx Instructions .Route Qty: 1 0RF Rx Instructions: As directed venlafaxine [Effexor XR] 150 mg capsule,extended release 24hr 150 mg PO DAILY hydroxyzine HCl 10 mg tablet 10 mg PO Q8H PRN (Reason: Anxiety) amlodipine 10 mg tablet 10 mg PO DAILY prazosin 2 mg capsule 6 mg PO BEDTIME (DME) Dexcom G6 Lead Inspector Misc See Rx Instructions .Route Rx Instructions: As directed aripiprazole 20 mg tablet 20 mg PO DAILY losartan 100 mg tablet 100 mg PO DAILY Linzess 290 mcg capsule 290 mcg PO QAM Glucerna Liquid 1 ea PO BID 28 Days Qty: 2880 2RF gabapentin 100 mg capsule 100 mg PO BID melatonin 3 mg tablet 3 mg PO BEDTIME atorvastatin 20 mg tablet 20 mg PO DAILY esomeprazole magnesium 40 mg capsule,delayed release(DR/EC) 40 mg PO DAILY Qty: 30 6RF Referrals: Pascual Darnell MD [Primary Care Provider] - Interventions: ED Discharge Assessment Last Done: 12/06/23 15:14 Print Language: Korean
[2023-12-06 10:46] VITALS: BP 150/90; PULSE 112; O2SAT 94; BMI 31.9
[2023-12-06 10:52] VITALS: BP 161/60; PULSE 96; RESP 16; TEMP 36.9; O2SAT 96
[2023-12-06] MEDS: Acetaminophen 325 MG TABLET 975 MG PO (11:17)
[2023-12-06] MEDS: oxyCODONE HCl Immed Release 5 MG TABLET PO (11:17)
[2023-12-06 13:45] LABS: Glucose, Whole Blood 189 mg/dL (60-115)
[2023-12-06 14:03] VITALS: PULSE 92; O2SAT 94
[2023-12-06 15:14] VITALS: BP 186/74; PULSE 88; RESP 16; TEMP 36.8; O2SAT 97
== END 2023-12-06 15:43 | disposition home or self-care (01) ==
PROVIDERS: Emergency Provider Emergency Medicine; PCP Internal Medicine
DX: M79.604 Pain in right leg (principal); M16.11 Unilateral primary osteoarthritis, right hip; E10.9 Type 1 diabetes mellitus without complications; I10 Essential (primary) hypertension; E78.5 Hyperlipidemia, unspecified; E03.9 Hypothyroidism, unspecified; R29.6 Repeated falls; Z91.81 History of falling; Z79.4 Long term (current) use of insulin; Z79.899 Other long term (current) drug therapy
CPT/HCPCS: 73502; 82947; 93971; 97162; 99284

== ENCOUNTER 2023-12-16 11:57 | Outpatient (REF) | payer OTHER, SELFPAY ==
--- NOTE | ~2023-12-16 | XR_ITS ---
EXAMINATION: XR SACRUM AND COCCYX CLINICAL INFORMATION: Fall COMPARISON: None available. TECHNIQUE: 2 views of the sacrum and 2 views of the coccyx were obtained. FINDINGS: There are no fractures. No bone, joint or soft tissue abnormality is demonstrated. Incidental note made of postsurgical changes in the partially visualized abdomen. XR/XR sacrum coccyx min 2V IMPRESSION: No acute abnormality of the sacrum or coccyx. Electronically signed by: Lamberto Eric MD 01/06/2024 06:55 AM EDT RP
--- NOTE | ~2023-12-16 | XR_ITS ---
EXAMINATION: XR KNEE, RIGHT CLINICAL INFORMATION: Injury COMPARISON: Right knee series December 2022 TECHNIQUE: Four views of the right knee. FINDINGS: There is chondrocalcinosis. Mild osteoarthritis of the medial compartment. Lateral compartment is normal. Mild osteoarthritis patellofemoral compartment. No effusion. No fracture XR/XR knee RT 4V IMPRESSION: 1. Chondrocalcinosis. 2. Mild osteoarthritis. 3. No fracture Electronically signed by: Lamberto Eric MD 01/06/2024 06:54 AM EDT
== END 2023-12-16 11:58 | disposition home or self-care (01) ==
LOC: HO.HHCX 11:57
PROVIDERS: Visit Provider Nurse Practitioner Family
DX: M25.561 Pain in right knee (principal); M53.3 Sacrococcygeal disorders, not elsewhere classified; Z91.81 History of falling
CPT/HCPCS: 72220; 73564

== ENCOUNTER 2023-12-31 10:14 | Outpatient (AMB) | payer OTHER, SELFPAY ==
--- NOTE | 2023-12-31 08:51 | A.OFFVIS_ITS ---
Vital Signs 12/31/23 10:18 Height 5 ft Weight 149 lb 14.629 oz BMI 29.3 BP 138/76 Blood Pressure Location Rt brachial Position Sitting Pulse 62 Pulse Source Pulse Oximeter Intake Visit Reasons: T2DM/CONFIRMED Intake Note: Patient present today to follow up on Type 1 Diabetes Mellitus. Patient receives DME supplies through: [employer] Last Diabetic Eye exam: Over 2 years ago. Last Podiatry Visit: Does not see a capture manager Random Glucose: 259mg/dL, Today Most Recent HgA1C: 8.0%, 10/16/2023 Territory Account Manager Required: Yes Territory Account Manager Language: Tornado [place]aser Services: Territory Account Manager Present (via video call [email or web address]) Information Interpreted: non-clinical & clinical Accompanied by: Other Relationship Allergies lorazepam [LORAZEPAM] Allergy (Severe, Verified 12/31/23 10:16) DELIRIUM celecoxib [From Celebrex] Allergy (Intermediate, Verified 12/31/23 10:16) ITCHING tramadol [TRAMADOL] Allergy (Intermediate, Verified 12/31/23 10:16) ITCHING zolpidem [Ambien] Allergy (Unknown, Verified 12/31/23 10:16) unknown HPI Comments Details: Patient is a 73-year-old female with DM type 1 diagnosed at 40 years of age, initially thought to have type 2 diabetes, who presents for management of diabetes. A1C 8% 09/2023 down from 8.8%. She does report a history of hypoglycemic coma in the past. She had a low sugar in the 20s was hospitalized for 1 day several months ago. Her sliding scale was significantly reduced at this time. She was recently hospitalized for multiple rib fractures after a fall. She is followed by Rheumatology and is on IV Reclast yearly. Her history indicates hyperparathyroidism secondary to low vitamin-D. She is on a Dexcom G7 sensor and has had no recent hypoglycemia. She has been on Levothyroxine 112 mcg daily. 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 Scalp folliculitis, fibromyalgia, microcytic anemia pernicious depression. Bariatric surgery 12/09/2016. [place] in past H/o hyperparathyroidism secondary to vitamin D defiency. Micro and macrovascular complications: CAD She continues to struggle with Dexcom sensor and is requesting change to fs dayana. She would like to go on CeQur insulin patch pump but was not able to do a return demonstration of the correct amount of clicks to give the correct dosing despite several attempts and re instruction. Dexcom average glucose: [200 ] 14 day continuous glucose monitor report reviewed Glucose Managment indicator [8.1 ] % Days with CGM data [50 ] % TIme in ranges: [ 23] % very high (above 250) [39 ] % high ?(181-250) [ 36] % in range ?(70-180] [2 ] % low (69-55) [ 0] % ?very low (below 54) [62 ] Standard Deviation Interpretation [overall running 30 points over target ] Diabetes medications: Tresiba 20 units Fiasp: 150-200 mg 2 units 201-250 mg 4 units 251-300 mg/ 6 units 301-350 mg 8 units 351-400 mg 8 units Symptoms reported: denies numbness, tingling, cramping in lower extremities Hypoglycemia: had low sugar at night once to 59 came up with treatment 3 tablets she has nightly snack at bedtime 1/2 cup Hyperglycemia: + urinary frequency, +nocturia, +polydypsia Exercise: denies Support Manager - CDE education Employment Training Specialist: in past would like referral Ophthalmology evaluation:two years ago SHe was counseled to schedule an appt. Other specialists: ceramic capacitor processor, neurologist, Dr. Tang, Rheumatology Osteoporosis is being managed via annual reclast infusion through Rheumatology. Patient has a h/o hyperparathyroism secondary to vitamin D deficiency. PTH is elevated despite normal calcium and vitamin D. She has had several rib fractures. [facility] Medical History (Updated 01/01/24 @ 08:22 by Vashti Glass NP) Hypoglycemia due to insulin Elevated parathyroid hormone Osteoporosis Hyperlipidemia (04/21/1959) Depressive disorder (04/21/1959) Nutritional anemia (04/21/1959) Shortness of breath Hypothyroidism (04/21/1959) Anemia Chronic gastritis Heart palpitations NSTEMI (non-ST elevated myocardial infarction) Recurrent falls (12/04/11) Iron deficiency anemia (04/21/1959) Fibromyositis (04/21/1959) Eczema (04/21/1959) High risk medication use Hepatitis C antibody positive in blood Screening for osteoporosis Screening for viral disease Joint swelling Overweight (BMI 25.0-29.9) Neck pain Swelling of knee joint, right Intra-abdominal abscess Diabetes Elevated liver function tests Intestinal malabsorption following gastrectomy Obesity (BMI 30-39.9) 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 Hypertension Cholecystitis Hyperlipidemia, unspecified Essential hypertension Atherosclerotic cardiovascular disease Fibromyalgia Folliculitis Anxiety Depression History of myocardial infarction Diabetes type 1, uncontrolled Hyperparathyroidism due to vitamin D deficiency Dyslipidemia Rona's disease Hypothyroidism Surgical History History of bypass gastroenterostomy (11/13/17) H/O gastric bypass S/P laparoscopic cholecystectomy Status post gastric bypass for obesity History of esophagogastroduodenoscopy (EGD) H/O colonoscopy History of laparoscopic cholecystectomy History of bladder suspension procedure Status post laser cataract surgery of both eyes Hx of appendectomy Family History Father No problems noted. Mother CVA (cerebral vascular accident) Sister Hypertension Brother Hypertension Liver cancer Social History Household Members: None Housing: Apartment Are you a primary career development coordinator/teacher to a significant other at home: No Do you presently have visiting nurse or other home services: Yes Unable to assess alcohol history related to: Unable to respond Alcohol intake: never Patient Tobacco Use Status: Never used Tobacco service: No Current occupational status: disabled Current occupation: right hand dominant Physical Exam Vital Signs: Last Vital Signs Pulse 62 12/31/23 10:18 BP 138/76 12/31/23 10:18 BMI result Body Mass Index 29.3 Const Other: Absence of Cushingoid features. Absence of acromegalic features. Neck exam reveals nl size thyroid about 15 gms. No thyroid nodules palpable. Lungs occ wheeze. Normal respiratory effort. Heart S1 S2, Reg R/R. No M/R G. Skin exam reveals absence of vitiligo or acanthosis nigricans. No edema Extrem Other: Visual exam of foot performed. No ulcerations or open lesions. No inter digit maceration or fissuring. No onychomycosis, no callouses. Sensation intact to monofilament exam. Vibratory sensation is normal with 128 Hz tuning fork. Office Procedures Glucose Monitoring Details Details: see [facility] [id number] - Glucose monitoring, continuous-physician I&R Procedure code (CPT) selection complete Results Reviewed Results Reviewed: Laboratory Last Values Glucose (Clinic) 259 mg/dL (60-115) H 12/31/23 10:21 Laboratory Tests 01/10/23 07/02/23 08/13/23 12:12 10:06 10:26 Calcium Alkaline Phosphatase 117 Alk Phos Bone Specific Albumin Triglycerides Cholesterol LDL Cholesterol, Calc HDL Cholesterol 25-OH Vitamin D Total 25-Hydroxy Vitamin D2 25-Hydroxy Vitamin D3 TSH PTH Intact Urine Creatinine 163.81 Urine Microalbumin 59.0 Microalb/Creat Ratio 36.0 H IgG Total 1214 IgA Total 93 IgM 51 09/09/23 10/16/23 10/27/23 12:13 11:41 08:45 Calcium Alkaline Phosphatase 151 H 147 H 158 H Alk Phos Bone Specific Albumin Triglycerides Cholesterol LDL Cholesterol, Calc HDL Cholesterol 25-OH Vitamin D Total 52.7 25-Hydroxy Vitamin D2 25-Hydroxy Vitamin D3 TSH 0.44 PTH Intact 55.2 Urine Creatinine Urine Microalbumin Microalb/Creat Ratio IgG Total IgA Total IgM 10/31/23 10:42 Calcium 8.4 Alkaline Phosphatase Alk Phos Bone Specific 28.7 Albumin 3.6 Triglycerides 74 Cholesterol 95 LDL Cholesterol, Calc 43 HDL Cholesterol 38 L 25-OH Vitamin D Total 38 25-Hydroxy Vitamin D2 <4 25-Hydroxy Vitamin D3 38 TSH PTH Intact 383.0 H Urine Creatinine Urine Microalbumin Microalb/Creat Ratio IgG Total IgA Total IgM Assessment & Plan Assessment & Plan (1) Diabetes type 1, uncontrolled: Code(s): E10.65 - Type 1 diabetes mellitus with hyperglycemia Category: Medical Qualifiers: Coma presence: without coma Glycemic state: with hypoglycemia Qualified Code(s): E10.649 - Type 1 diabetes mellitus with hypoglycemia without coma Plan: Type 2 diabetic with history of profound hypoglycemia. Recent Dexcom download shows 1 episode to 59 which resolved with 15 carb grams. She was encouraged to have a nightly bedtime snack. Average glucose on Dexcom was 200 but I would not recommend intensifying treatment in light of her history of profound hypoglycemia. She does carry a sugar source and is familiar with rule of 15. I would not recommend patient going on CeQur as after several re instructions she was not able to click the right amount of insulin. (2) Elevated parathyroid hormone: Code(s): R79.89 - Other specified abnormal findings of blood chemistry Category: Medical Plan: Patient has a history of hyperparathyroidism secondary to vitamin-D deficiency. PTH was normal in September an elevated to 383 in October. We will have patient repeat lab testing at [facility]. Vitamin-D levels have been within normal limits. I will ask Dr. Sprague to review her labs/case. Osteoporosis is managed by rheumatology. Orders: Orders AMB Glucose Monitoring 12/31/23 E10.649 - Type 1 diabetes mellitus with hypoglycemia without coma AMB Glucose Monitoring 12/31/23 E10.649 - Type 1 diabetes mellitus with hypoglycemia without coma Medications: New blood-glucose meter,continuous (FreeStyle Dayana 3 Orange) As directed 1 ea 0RF E10.649 - Type 1 diabetes mellitus with hypoglycemia without coma FreeStyle Dayana 3 Plus Sensor (blood-glucose sensor) As directed 2 ea 11RF NS E10.649 - Type 1 diabetes mellitus with hypoglycemia without coma blood-glucose sensor (FreeStyle Dayana 3 Plus Sensor device) As directed 6 ea 4RF blood-glucose meter,continuous (FreeStyle Dayana 3 Orange) As directed 1 ea 0RF Changed From insulin degludec (Tresiba FlexTouch U-100 insulin) 30 units (0.3 mL) subcut DAILY 15 mL 3RF E10.649 - Type 1 diabetes mellitus with hypoglycemia without coma To Tresiba FlexTouch U-100 (insulin degludec) 20 units (0.2 mL) subcut DAILY 30 days 6 mL 3RF NS E10.649 - Type 1 diabetes mellitus with hypoglycemia without coma Discontinued bolus insulin pump, 200 unit (CeQur Simplicity) Discontinued Reason: Doctor's Order As directed every 3 days 10 ea 11RF E10.649 - Type 1 diabetes mellitus with hypoglycemia without coma bolus insulin pump, 200 unit (CeQur Simplicity) Discontinued Reason: Doctor's Order As directed 10 ea 11RF E10.649 - Type 1 diabetes mellitus with hypoglycemia without coma Coding Level of Care Code Est Pt Level 4 (66208) Complex EM visit Add On G2211 Diagnoses Uncontrolled type 1 diabetes mellitus with hypoglycemia without coma E10.649 Coma presence: without coma Glycemic state: with hypoglycemia Elevated parathyroid hormone R79.89 CPT Codes Details - CPT: 44898 - Glucose monitoring, continuous-physician I&R ([id number]) Time Spent (min) 30 Comment Time spent reviewing labs/provider notes, glucose,sensor reports, face to face, chart doc
[2023-12-31 10:18] VITALS: BP 138/76; PULSE 62; BMI 29.3
[2023-12-31 10:30] LABS: Glucose, Whole Blood 259 mg/dL (60-115)
== END 2023-12-31 11:26 | disposition home or self-care (01) ==
PROVIDERS: PCP Internal Medicine; Visit Provider Nurse Practitioner Adult Health
DX: E10.649 Type 1 diabetes mellitus with hypoglycemia without coma (principal)
CPT/HCPCS: 95251; 99214; G2211

== ENCOUNTER → 2023-12-31 10:14 | Outpatient (BNVA) | payer OTHER, SELFPAY | PROVIDERS: PCP Internal Medicine; Visit Provider Nurse Practitioner Adult Health | DX: E10.649 Type 1 diabetes mellitus with hypoglycemia without coma (principal); R79.89 Other specified abnormal findings of blood chemistry | CPT/HCPCS: 82947; 99212 ==

== ENCOUNTER 2024-01-04 10:44 | Emergency (ER) | payer OTHER, SELFPAY ==
--- NOTE | ~2024-01-04 | XR_ITS ---
EXAMINATION: XR CHEST CLINICAL INFORMATION: Cough and shortness of breath COMPARISON: 09/12/2023 and selected priors TECHNIQUE: AP upright portable view of the chest was obtained. FINDINGS: Stable prominence of the cardiac silhouette. Atherosclerotic peripheral vascular disease and stable aortic prominence. No pulmonary edema. No focal pneumonia. No effusion or pneumothorax. Stable thickening of the left lateral pleural stripe. Nonobstructive gas pattern. Postsurgical changes in the upper abdomen. Old healed left rib fractures. Old healed left clavicular fracture. XR/XR chest 1V IMPRESSION: No focal pneumonia. Electronically signed by: Carlos Glass MD 01/04/2024 01:48 PM EDT
[2024-01-04 10:55] VITALS: BP 163/67; PULSE 65; RESP 16; TEMP 36.7; O2SAT 98; BMI 31.4
--- NOTE | 2024-01-04 11:45 | ECG_ITS ---
Test Reason : SOB Blood Pressure : / mmHG Vent. Rate : 056 BPM Atrial Rate : 056 BPM P-R Int : 134 ms QRS Dur : 090 ms QT Int : 468 ms P-R-T Axes : 049 037 111 degrees QTc Int : 451 ms Sinus bradycardia Cannot rule out Anterior infarct , age undetermined Nonspecific T wave abnormality Abnormal ECG When compared with ECG of 27-OCT-2023 08:44, T wave inversion now evident in Lateral leads Referred By: Polly Jeffery Electronically Signed By:FAITH NEGRO
[2024-01-04 12:00] VITALS: BP 181/69; PULSE 64; RESP 16; TEMP 36.7; O2SAT 96
--- NOTE | 2024-01-04 12:23 | ED_ITS ---
HPI - General Adult General Chief complaint: General Medical Stated complaint: INCREASING CP Time Seen by Provider: 01/04/24 11:44 Source: patient, RN notes reviewed, old records reviewed and motor vehicle parts interpreter Mode of arrival: EMS Limitations: no limitations History of Present Illness ED Provider: Lisa Jeffery PA-C HPI narrative: 73-year-old female with history of HTN, HLD, oa, constipation, GERD, RA, anxiety, depression, DM, hyperparathyroid, Rona's disease, who presents to the ER for evaluation of generalized weakness, diffuse body aches, productive cough in the setting of being COVID positive. She states she has been sick for 2 weeks. She tested positive for COVID at the [facility] 2 weeks ago. She states she has not gotten better yet. She states she is bringing up green phlegm. Yesterday she developed some sharp chest pains when she was coughing that self resolved. She did also develop 5 episodes of vomiting last night. No associated abdominal pain or diarrhea. No vomiting yet today. No chest pain today. She denies any ongoing fevers. She denies any weakness, she lives home alone and has been trying to eat and drink as normally as she can. She reports good glucose control. MD complaint: Diffuse body pain, productive cough Onset (ago): week(s) (2) Severity: moderate Quality: aching Pain Consistency: constant Relieving factors: rest Exacerbating factors: movement Associated symptoms: cough, malaise, nausea/vomiting and shortness of breath Treatments prior to arrival: none Related Data Home Medications ?Medication ?Instructions ?Recorded ?Confirmed venlafaxine 150 mg 150 mg PO DAILY 01/28/20 11/19/23 capsule,extended release 24 hr (Effexor XR) hydroxyzine HCl 10 mg tablet 10 mg PO Q8H PRN Anxiety 02/22/20 11/19/23 clonazepam 0.5 mg tablet 1 tab PO Q8H PRN anxiety 01/02/21 11/19/23 amlodipine 10 mg tablet 10 mg PO DAILY 05/14/22 11/19/23 prazosin 2 mg capsule 6 mg PO BEDTIME 05/14/22 11/19/23 aripiprazole 20 mg tablet 20 mg PO DAILY 01/10/23 11/19/23 losartan 100 mg tablet 100 mg PO DAILY 07/30/23 11/19/23 atorvastatin 20 mg tablet 20 mg PO DAILY 08/21/23 11/19/23 gabapentin 100 mg capsule 100 mg PO BID 08/21/23 11/19/23 melatonin 3 mg tablet 3 mg PO BEDTIME 08/21/23 11/19/23 insulin aspart 2 - 14 sliding scale dose subcut 09/09/23 11/19/23 (niacinamide)(U-100) 100 unit/mL(3 QIDACHS mL) subcutaneous pen (Fiasp FlexTouch U-100 Insulin) methocarbamol 500 mg tablet 500 mg PO DAILY 09/09/23 11/19/23 linaclotide 290 mcg capsule 290 mcg PO QAM 10/16/23 11/19/23 (Linzess) Previous Rx's ?Medication ?Instructions ?Recorded insulin syringe-needle U-100 0.3 #100 ea 06/13/20 mL 31 gauge x 5/16 (BD Insulin Syringe Ultra-Fine) blood-glucose meter (Yassets #1 ea 05/20/22 Lite Meter kit) albuterol sulfate 90 mcg/actuation 2 puff inhalation Q4-6H PRN 04/10/23 aerosol inhaler shortness of breath or wheezing #8.5 grams albuterol sulfate 2.5 mg/3 mL 2.5 mg (3 mL) inhalation Q3H PRN 04/18/23 (0.083 %) solution for nebulization sob #180 mL ipratropium 0.5 mg-albuterol 3 mg 3 ml inhalation RQ4H WHILE AWAKE 7 04/18/23 (2.5 mg base)/3 mL nebulization days #180 mL soln nebulizers #1 ea 04/18/23 blood sugar diagnostic (GameLogicStyle #200 strips 04/29/23 Lite Strips) folic acid 1 mg tablet 1 mg PO DAILY #90 tabs 05/28/23 esomeprazole magnesium 40 mg 40 mg PO DAILY #30 caps 08/21/23 capsule,delayed release acetaminophen 325 mg tablet 650 mg (2 x 325 mg) PO Q6H PRN 09/16/23 Pain, Mild (Pain Scale 1-3) #1 tab oxycodone 10 mg tablet,crush 10 mg PO BID #6 tabs 09/16/23 resistant,extended release 12 hr (OxyContin) oxycodone 5 mg tablet 5 mg PO Q4H PRN Pain, 09/16/23 Moderate(Pain Scale 4-6) #18 tabs calcium citrate 200 mg (950 mg) 400 mg (2 x 200 mg (950 mg)) PO 10/16/23 tablet BID 30 days #120 tabs clopidogrel 75 mg tablet 75 mg PO QAM #30 tabs 10/16/23 nut.tx.gluc.intol,lac-free,soy 1 ea PO BID 28 days #2,880 mL 10/16/23 (Glucerna oral liquid) carvedilol 6.25 mg tablet 6.25 mg PO BID #60 tabs 10/22/23 pen needle, diabetic 32 gauge x #200 ea 10/28/23 (Pentips) cholecalciferol (vitamin D3) 50 50 mcg PO QAM #30 caps 11/27/23 mcg (2,000 unit) capsule (Vitamin D3) bisacodyl 5 mg tablet,delayed 10 mg (2 x 5 mg) PO BEDTIME #60 12/01/23 release tabs diabetic supplies, miscellan. #1 ea 12/02/23 (CeQur Simplicity Building [employer] Teacher) diabetic supplies, miscellan. #1 ea 12/02/23 (Ce[employer]ur [employer] Teacher) cyclobenzaprine 10 mg tablet 10 mg PO TID PRN muscle spasm #10 12/06/23 tabs Actemra ACTPen 162 mg/0.9 mL 162 mg (0.9 mL) subcut Q2W #1.8 mL 12/17/23 subcutaneous pen injector (tocilizumab) levothyroxine 112 mcg tablet 112 mcg PO DAILY #30 tabs 12/28/23 FreeStyle Dayana 3 Plus Sensor #2 ea 12/31/23 (blood-glucose sensor) Tresiba FlexTouch U-100 100 20 unit (0.2 mL) subcut DAILY 30 12/31/23 unit/mL (3 mL) subcutaneous pen days #6 mL (insulin degludec) blood-glucose meter,continuous #1 ea 12/31/23 (FreeStyle Dayana 3 Preston) blood-glucose meter,continuous #1 ea 01/01/24 (FreeStyle Dayana 3 Preston) blood-glucose sensor (FreeStyle #6 ea 01/01/24 Dayana 3 Plus Sensor device) azithromycin 250 mg tablet See Rx Instructions PO .COMPLEX #6 01/04/24 (Zithromax Z-Remi) tabs ondansetron 4 mg disintegrating 4 mg PO Q8H PRN nausea and 01/04/24 tablet vomiting #7 tabs prednisone 20 mg tablet 20 mg PO DAILY #4 tabs 01/04/24 Allergies Allergy/AdvReac Type Severity Reaction Status Date / Time lorazepam [LORAZEPAM] Allergy Severe DELIRIUM Verified 01/04/24 10:57 celecoxib [From Celebrex] Allergy Intermediate ITCHING Verified 01/04/24 10:57 tramadol [TRAMADOL] Allergy Intermediate ITCHING Verified 01/04/24 10:57 zolpidem [Ambien] Allergy Unknown unknown Verified 01/04/24 10:57 [facility] Past Medical History Medical History (Updated 01/04/24 @ 14:15 by MARK Soto) Hypoglycemia due to insulin Elevated parathyroid hormone Osteoporosis Hyperlipidemia (04/21/1959) Depressive disorder (04/21/1959) Nutritional anemia (04/21/1959) Shortness of breath Hypothyroidism (04/21/1959) Anemia Chronic gastritis Heart palpitations NSTEMI (non-ST elevated myocardial infarction) Recurrent falls (12/04/11) Iron deficiency anemia (04/21/1959) Fibromyositis (04/21/1959) Eczema (04/21/1959) High risk medication use Hepatitis C antibody positive in blood Screening for osteoporosis Screening for viral disease Joint swelling Overweight (BMI 25.0-29.9) Neck pain Swelling of knee joint, right Intra-abdominal abscess Diabetes Elevated liver function tests Intestinal malabsorption following gastrectomy Obesity (BMI 30-39.9) 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 Hypertension Cholecystitis Hyperlipidemia, unspecified Essential hypertension Atherosclerotic cardiovascular disease Fibromyalgia Folliculitis Anxiety Depression History of myocardial infarction Diabetes type 1, uncontrolled Hyperparathyroidism due to vitamin D deficiency Dyslipidemia Rona's disease Hypothyroidism Surgical History History of bypass gastroenterostomy (11/13/17) H/O gastric bypass S/P laparoscopic cholecystectomy Status post gastric bypass for obesity History of esophagogastroduodenoscopy (EGD) H/O colonoscopy History of laparoscopic cholecystectomy History of bladder suspension procedure Status post laser cataract surgery of both eyes Hx of appendectomy Family History Family History Father No problems noted. Mother CVA (cerebral vascular accident) Sister Hypertension Brother Hypertension Liver cancer Social History Social History Household Members: None Housing: Apartment Are you a primary healthcare specialist to a significant other at home: No Do you presently have visiting nurse or other home services: Yes Unable to assess alcohol history related to: Unable to respond Alcohol intake: never Patient Tobacco Use Status: Never used Tobacco Advance Directives: Yes Advance Directives on File: Yes Advance Directives Date on File: 09/17/23 service: No Current occupational status: disabled Current occupation: right hand dominant Physical Exam ED Vital Signs: Vital Signs - 24 hr 01/04/24 10:55 01/04/24 12:00 01/04/24 14:20 Temperature 98.1 F 98.1 F 98.2 F Pulse Rate 65 64 62 Respiratory Rate 16 16 14 Blood Pressure 163/67 H 181/69 H 172/71 H Pulse Oximetry 98 96 95 Oxygen Delivery Method Room Air Room Air Room Air BMI result Body Mass Index 31.4 Appearance: Alert. Elderly female sitting up in the bed, no distress Oriented X3. Head: normocephalic, atraumatic. Eyes: Pupils equal, round and reactive to light. ENT: Pharynx normal. No tonsillar swelling or exudate. Neck: Normal inspection. Neck supple. CVS: Normal heart rate and rhythm. Pulses normal. Respiratory: No respiratory distress. Breath sounds normal. Abdomen: Soft and nontender. +BS x4 Skin: Skin warm and dry. Normal skin color. Normal skin turgor. No rashes. Extremities: No lower extremity edema. No joint swelling. Neuro/psych: Oriented X 3. Strength equal and symmetrical throughout, normal speech and cognition. Grossly nonfocal Medical Decision Making Medical Decision Making MDM Narrative: 73-year-old female with multiple comorbidities presents to the ER for evaluation of ongoing body aches, productive cough, intermittent chest pain that occurred yesterday along with some intermittent palpitations as well. She had some vomiting last night. She has been COVID positive for the last 2 weeks and has not recovered yet. She is fully vaccinated. She denies any significant pulmonary history. On arrival to the ER she is hemodynamically stable, blood pressure on the higher side. She is afebrile and saturating well on room air. He is not in any respiratory distress. Her physical exam is unremarkable. EKG does not show any ischemic changes. Chest x-ray is clear with no evidence of pneumonia. Lab work was obtained that showed a mildly elevated troponin, similar to her previous visits. She had no significant electrolyte abnormalities, no leukocytosis. Her anemia is stable from prior. translator and interpreter used to discuss symptomatic management and need for outpatient follow-up. She was offered physical therapy evaluation and possible short-term rehab stay however she states she feels comfortable going home, denies any weakness or concern for safety at home. Will start her on short course of low-dose prednisone and a Z- Remi for her symptoms of acute bronchitis due to COVID. She will follow-up with her primary care doctor this week if able. Return precautions were discussed. Stable for DC home Differential Diagnosis Differential Diagnoses: The differential diagnosis associated with the presentation includes COVID pneumonia, bacterial pneumonia, CHF, asthma, COPD, anxiety, long COVID Admission/Observation Consideration of admission/observation: Escalation of care including admission/observation considered Lab Data MDM Lab Attestation statement: I reviewed the patient's lab results. No leukocytosis, stable anemia, low suspicion for ischemia as cause of mildly elevated troponin 01/04/24 14:19 01/04/24 14:19 Labs: Lab Results 01/04/24 01/04/24 Range/Units 12:45 14:19 WBC 7.6 (4.8-10.8) X10*3/uL RBC 4.36 (4.20-5.50) X10*6/uL Hgb 11.9 L (12.0-16.0) g/dl Hct 36.8 L (37.0-47.0) % MCV 84.4 (80.0-98.0) fL MCH 27.3 (27.0-33.0) pg MCHC 32.3 (31.0-35.0) g/dl RDW 16.6 H (11.0-16.0) % Plt Count 231 (160-400) X10*3/uL MPV 11.1 (9.4-12.3) fL Immature Gran % (Auto) 0.4 (0.0-0.4) % Neut % (Auto) 40.2 L (45-73) % Lymph % (Auto) 39.9 (20-40) % [place] % (Auto) 9.5 (2-11) % Eos % (Auto) 9.1 H (0-4) % Baso % (Auto) 0.9 (0-2) % Lymph # (Auto) 3.0 (1.2-4.9) X10*3/uL [place] # (Auto) 0.7 (0.1-1.2) X10*3/uL Eos # (Auto) 0.7 H (0.0-0.4) X10*3/uL Baso # (Auto) 0.1 (0.0-0.2) X10*3/uL Abs Immat Gran (auto) 0.03 (0.00-0.03) X10*3/uL Absolute Neuts (auto) 3.1 (2.0-8.3) x10*3/uL Absolute Nucleated RBC 0.000 (0.0-0.012) X10*3/uL Nucleated RBC % (auto) 0.0 (0.0-0.2) /100WBC Troponin I High Sens 24.6 H D (<3.5-17.0) ng/L B-Natriuretic Peptide 23 (<100) pg/mL COVID-19 ([facility]) Positive A (Negative) COVID-19 Clin Com See Note Independent Interpretation I performed an independent interpretation of an: EKG and Plain X-Ray Interpretation: EKG with sinus bradycardia, ventricular rate 56 beats per minute, normal TN interval, 1 mm elevation of lead 3 only, not significantly changed from prior, otherwise no ST segment elevations or depressions. Radiology Impression Discussion of test interpretation with radiology: I have reviewed the radiologist's reading. Independent Historian Clinical information obtained from an independent historian. History obtained from or confirmed by: EMS External Record Review External record reviewed: Office record, Outpatient record, Prior outpatient labs and Prior outpatient radiology Prescription Management I considered prescription management with: Pain Medication, Antiviral and Antibiotic Chronic Conditions Patient?s care impacted by: Diabetes and Hypertension Critical Care Time Critical Care Time Critical Care Time: No Discharge Plan Discharge Clinical Impression: COVID-19 Patient Disposition: Home, Self-Care Instructions: COVID-19 (Coronavirus Disease 2019) (ED) Additional Instructions: You were found to be COVID-19 POSITIVE today. Your chest x-ray and oxygen levels were normal. Rest. Drink plenty of fluids. Take over the counter cold/flu medications as needed for your symptoms. Take Tylenol and/or Motrin as needed for fevers and body aches. Follow up with your doctor this week. If you shortness of breath worsens, if you develop difficulty breathing or any other concerning symptom come back to the ER for further evaluation. Prescriptions: New azithromycin [Zithromax Z-Remi] 250 mg tablet See Rx Instructions .ROUTE .COMPLEX Qty: 6 0RF Rx Instructions: take 500 mg today (day 1), then 250 mg for 4 days (days 2-5) ondansetron 4 mg tablet,disintegrating 4 mg PO Q8H PRN (Reason: nausea and vomiting) Qty: 7 0RF prednisone 20 mg tablet 20 mg PO DAILY Qty: 4 0RF No Action (DME) insulin syringe-needle U-100 [BD Insulin Syringe Ultra-Fine] 0.3 mL 31 gauge x 5/16 syringe See Rx Instructions .ROUTE .MEDSUPPLY Qty: 100 0RF Rx Instructions: As directed 3 times per day (DME) blood-glucose meter [FreeStyle Lite Meter] Kit See Rx Instructions .ROUTE .MEDSUPPLY Qty: 1 0RF Rx Instructions: As directed (DME) FreeStyle Lite Strips Strip See Rx Instructions .ROUTE .COMPLEX Qty: 200 11RF Dose Instruction: TEST BLOOD SUGAR 8 TIMES EVERY DAY Rx Instructions: TEST BLOOD SUGAR 8 TIMES EVERY DAY clopidogrel 75 mg tablet 75 mg PO QAM Qty: 30 7RF calcium citrate 200 mg (950 mg) tablet 400 mg PO BID 30 Days Qty: 120 4RF carvedilol 6.25 mg tablet 6.25 mg PO BID Qty: 60 2RF (DME) pen needle, diabetic [Pentips] 32 gauge x 5/32 needle See Rx Instructions .ROUTE .COMPLEX Qty: 200 7RF Dose Instruction: USE FIVE TIMES DAILY Rx Instructions: USE FIVE TIMES DAILY cholecalciferol (vitamin D3) [Vitamin D3] 50 mcg (2,000 unit) capsule 50 mcg PO QAM Qty: 30 4RF bisacodyl 5 mg tablet,delayed release (DR/EC) 10 mg PO BEDTIME Qty: 60 6RF (DME) CeQur [employer] Teacher Misc See Rx Instructions .Route Qty: 1 1RF Rx Instructions: As directed (DME) CeQur [employer] Teacher Misc See Rx Instructions .ROUTE .MEDSUPPLY Qty: 1 1RF Rx Instructions: As directed Actemra ACTPen 162 mg/0.9 mL pen injector 162 mg subcut Q2W Qty: 1.8 2RF levothyroxine 112 mcg tablet 112 mcg PO DAILY Qty: 30 5RF folic acid 1 mg Tablet 1 mg PO DAILY Qty: 90 4RF clonazepam 0.5 mg tablet 1 tab PO Q8H PRN (Reason: anxiety) methocarbamol 500 mg tablet 500 mg PO DAILY Fiasp FlexTouch U-100 Insulin 100 unit/mL (3 mL) insulin pen 2 - 14 sliding scale dose subcut QIDACHS acetaminophen 325 mg Tablet 650 mg PO Q6H PRN (Reason: Pain, Mild (Pain Scale 1-3)) Qty: 1 0RF oxycodone 5 mg Tablet 5 mg PO Q4H PRN (Reason: Pain, Moderate(Pain Scale 4-6)) Qty: 18 0RF Rx Instructions: Partial Fill upon patient request. oxycodone [OxyContin] 10 mg Tablet,Oral Only,Ext.Rel.12 Hr 10 mg PO BID Qty: 6 0RF Rx Instructions: Partial Fill upon patient request. cyclobenzaprine 10 mg tablet 10 mg PO TID PRN (Reason: muscle spasm) Qty: 10 0RF albuterol sulfate 90 mcg/actuation HFA aerosol inhaler 2 puff inhalation Q4-6H PRN (Reason: shortness of breath or wheezing) Qty: 8.5 0RF ipratropium-albuterol 0.5 mg-3 mg(2.5 mg base)/3 mL Solution For Nebulization 3 ml inhalation RQ4H WHILE AWAKE 7 Days Qty: 180 2RF albuterol sulfate 2.5 mg /3 mL (0.083 %) Solution For Nebulization 2.5 mg inhalation Q3H PRN (Reason: sob) Qty: 180 2RF (DME) nebulizers Misc See Rx Instructions .Route Qty: 1 0RF Rx Instructions: As directed venlafaxine [Effexor XR] 150 mg capsule,extended release 24hr 150 mg PO DAILY hydroxyzine HCl 10 mg tablet 10 mg PO Q8H PRN (Reason: Anxiety) amlodipine 10 mg tablet 10 mg PO DAILY prazosin 2 mg capsule 6 mg PO BEDTIME aripiprazole 20 mg tablet 20 mg PO DAILY losartan 100 mg tablet 100 mg PO DAILY Linzess 290 mcg capsule 290 mcg PO QAM Glucerna Liquid 1 ea PO BID 28 Days Qty: 2880 2RF Tresiba FlexTouch U-100 100 unit/mL (3 mL) insulin pen 20 unit subcut DAILY 30 Days Qty: 6 3RF (DME) FreeStyle Dayana 3 Preston Misc See Rx Instructions .ROUTE .MEDSUPPLY Qty: 1 0RF Rx Instructions: As directed (DME) FreeStyle Dayana 3 Plus Sensor Device See Rx Instructions .Route Qty: 2 11RF Rx Instructions: As directed (DME) FreeStyle Dayana 3 Plus Sensor Device See Rx Instructions .Route Qty: 6 4RF Rx Instructions: As directed (DME) FreeStyle Dayana 3 Preston Misc See Rx Instructions .ROUTE .MEDSUPPLY Qty: 1 0RF Rx Instructions: As directed gabapentin 100 mg capsule 100 mg PO BID melatonin 3 mg tablet 3 mg PO BEDTIME atorvastatin 20 mg tablet 20 mg PO DAILY esomeprazole magnesium 40 mg capsule,delayed release(DR/EC) 40 mg PO DAILY Qty: 30 6RF Referrals: Pascual Darnell MD [Primary Care Provider] - Print Language: Tamazight
[2024-01-04 12:59] LABS: COVID-19 Test Positive (Negative); IDNOW Serial# 152EDE1D
[2024-01-04 14:20] VITALS: BP 172/71; PULSE 62; RESP 14; TEMP 36.8; O2SAT 95
[2024-01-04 14:25] LABS: Basophils Absolute Auto 0.1 X10*3/uL (0.0-0.2); Basophils Percent Auto 0.9 % (0-2); Eosinophils Absolute Auto 0.7 X10*3/uL (0.0-0.4); Eosinophils Percent Auto 9.1 % (0-4); Hematocrit 36.8 % (37.0-47.0); Hemoglobin 11.9 g/dl (12.0-16.0); Imm Gran Abs Auto 0.03 X10*3/uL (0.00-0.03); Imm Gran Pct Auto 0.4 % (0.0-0.4); Lymphocytes Percent Auto 39.9 % (20-40); MANUAL DIFF FLAG NO; Mean Corpuscular HGB Conc 32.3 g/dl (31.0-35.0); Mean Corpuscular Hemoglobin 27.3 pg (27.0-33.0); Mean Corpuscular Volume 84.4 fL (80.0-98.0); Mean Platelet Volume 11.1 fL (9.4-12.3); Monocytes Absolute Auto 0.7 X10*3/uL (0.1-1.2); Monocytes Percent Auto 9.5 % (2-11); Neutrophils Absolute Auto 3.1 x10*3/uL (2.0-8.3); Neutrophils Percent Auto 40.2 % (45-73); Platelet Count 231 X10*3/uL (160-400); Red Blood Count 4.36 X10*6/uL (4.20-5.50); Red Cell Distribution Width 16.6 % (11.0-16.0); White Blood Count 7.6 X10*3/uL (4.8-10.8)
[2024-01-04 14:47] LABS: Troponin-I High Sensitivity 24.6 ng/L (<3.5-17.0)
[2024-01-04 14:51] LABS: B Type Natriuretic Peptide 23 pg/mL (<100)
[2024-01-04 15:41] VITALS: BP 169/64; PULSE 68; RESP 16; TEMP 36.6; O2SAT 94
[2024-01-04 16:00] VITALS: BP 169/64; PULSE 68; RESP 16; TEMP 36.6; O2SAT 94
[2024-01-04 16:05] LABS: Glucose, Whole Blood 102 mg/dL (60-115)
== END 2024-01-04 16:21 | disposition home or self-care (01) ==
PROVIDERS: Physician Assistant; Emergency Provider Emergency Medicine; PCP Internal Medicine
DX: U07.1 COVID-19 (principal); R07.89 Other chest pain; R06.02 Shortness of breath; Z79.899 Other long term (current) drug therapy
CPT/HCPCS: 36415; 71045; 82947; 83880; 84484; 85025; 87635; 93005; 99284

== ENCOUNTER 2024-01-19 09:20 | Outpatient (AMB) | payer OTHER, SELFPAY ==
--- NOTE | 2024-01-19 09:22 | MHC.OFFVISWM ---
VS Expanded 01/19/24 09:33 BP 147/74 H Blood Pressure Location Rt brachial Blood Pressure Position Sitting Pulse 85 Pulse Source Pulse Oximeter Temp 97.8 F Temperature Source Temporal Artery Scan Pulse Oximetry 98 Oxygen Delivery Method Room Air Height 4 ft 11 in Weight 145 lb 9.6 oz BMI 29.4 Body Fat % 33.6 Body Fat Mass 49.0 Fat Free Mass 96.6 Visceral Fat Rating 10.0 Body Water % 46.7 Body Water Mass 68.0 Muscle Mass/Score 91.8 Basal Metabolic Rate/Score 1,300 Intake Visit Reasons: OV PO LSG 12/09/16 Oral Pathologist Required: Yes Oral Pathologist Name: Honorio- [id number] Information Interpreted: clinical only Allergies lorazepam [LORAZEPAM] Allergy (Severe, Verified 01/04/24 10:57) DELIRIUM celecoxib [From Celebrex] Allergy (Intermediate, Verified 01/04/24 10:57) ITCHING tramadol [TRAMADOL] Allergy (Intermediate, Verified 01/04/24 10:57) ITCHING zolpidem [Ambien] Allergy (Unknown, Verified 01/04/24 10:57) unknown Medication List - Last Reconciled 01/19/24 by MARK Paulson acetaminophen 650 mg (2 x 325 mg) PO Q6H PRN Actemra ACTPen (tocilizumab) 162 mg (0.9 mL) subcut Q2W NS albuterol sulfate 90 mcg/actuation 2 puffs inhalation Q4-6H PRN albuterol sulfate 2.5 mg (3 mL) inhalation Q3H PRN amlodipine 10 mg PO DAILY aripiprazole 20 mg PO DAILY atorvastatin 20 mg PO DAILY bisacodyl 10 mg (2 x 5 mg) PO BEDTIME blood sugar diagnostic (FreeStyle Lite Strips) TEST BLOOD SUGAR 8 TIMES EVERY DAY blood-glucose meter (FreeStyle Lite Meter kit) As directed blood-glucose sensor (LightSquared G7 Sensor device) As directed calcium citrate 400 mg (2 x 200 mg (950 mg)) PO BID 30 days carvedilol 6.25 mg PO BID cholecalciferol (vitamin D3) (Vitamin D3) 50 mcg PO QAM clonazepam 1 tab PO Q8H PRN clopidogrel 75 mg PO QAM cyclobenzaprine 10 mg PO TID PRN esomeprazole magnesium 40 mg PO DAILY folic acid 1 mg PO DAILY gabapentin 100 mg PO BID hydroxyzine HCl 10 mg PO Q8H PRN insulin aspart (niacinamide) 100 unit/mL (3 mL) (Fiasp FlexTouch U-100 Insulin) 2 - 14 sliding scale doses subcut QIDACHS insulin syringe-needle U-100 (BD Insulin Syringe Ultra-Fine) As directed 3 times per day ipratropium-albuterol 0.5 mg-3 mg(2.5 mg base)/3 mL 3 mL inhalation RQ4H WHILE AWAKE 7 days levothyroxine 112 mcg PO DAILY linaclotide (Linzess) 290 mcg PO QAM losartan 100 mg PO DAILY melatonin 3 mg PO BEDTIME methocarbamol 500 mg PO DAILY nebulizers As directed nut.tx.gluc.intol,lac-free,soy (Glucerna oral liquid) 1 ea PO BID 28 days ondansetron 4 mg PO Q8H PRN oxycodone 5 mg PO Q4H PRN oxycodone ER (OxyContin) 10 mg PO BID pen needle, diabetic (Pentips) USE FIVE TIMES DAILY prazosin 6 mg PO BEDTIME prednisone 20 mg PO DAILY Tresiba FlexTouch U-100 (insulin degludec) 20 units (0.2 mL) subcut DAILY 30 days NS venlafaxine ER (Effexor XR) 150 mg PO DAILY HPI Comments Details: This?is a?73?yo female who is s/p RYGB 12/09/2016. Presents for 7 year post op visit. Weight loss of 15.2lbs since last OV 1 year ago.? No complaints of nausea, emesis, or reflux. Has some abdominal pain associated with constipation. On Linzess per GI, pt reports this is mostly helpful but sometimes not effective; if she takes every day, has diarrhea but currently she still experiences episodes of constipation when she does not take. Pt reports I've had many falls , been hospitalized. Had a broken clavicle. Attributes her weight loss to hospitalizations, as well as COVID. Blood sugars have been fluctuating also. Present meal plan includes: 9am - 1 scoop 4:1 shake with 8oz unsweetened almond milk AM snack- none 12 pm- rice, meat, vegetables 3pm - fruit, multigrain cookie or yogurt 6pm - rice and meat not taking MVI Exercise: at last visit gave home video handout ambulating with a cane [facility] Medical History (Updated 01/19/24 @ 09:44 by MARK Paulson) Hypoglycemia due to insulin Elevated parathyroid hormone Osteoporosis Hyperlipidemia (04/21/1959) Depressive disorder (04/21/1959) Nutritional anemia (04/21/1959) Shortness of breath Hypothyroidism (04/21/1959) Anemia Chronic gastritis Heart palpitations NSTEMI (non-ST elevated myocardial infarction) Recurrent falls (12/04/11) Iron deficiency anemia (04/21/1959) Fibromyositis (04/21/1959) Eczema (04/21/1959) High risk medication use Hepatitis C antibody positive in blood Screening for osteoporosis Screening for viral disease Joint swelling Overweight (BMI 25.0-29.9) Neck pain Swelling of knee joint, right Intra-abdominal abscess Diabetes Elevated liver function tests Intestinal malabsorption following gastrectomy Obesity (BMI 30-39.9) 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 Hypertension Cholecystitis Hyperlipidemia, unspecified Essential hypertension Atherosclerotic cardiovascular disease Fibromyalgia Folliculitis Anxiety Depression History of myocardial infarction Diabetes type 1, uncontrolled 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 Mother CVA (cerebral vascular accident) Sister Hypertension Brother Hypertension Liver cancer Social History Household Members: None Housing: Apartment Are you a primary patient care provider to a significant other at home: No Do you presently have visiting nurse or other home services: Yes Unable to assess alcohol history related to: Unable to respond Alcohol intake: never Patient Tobacco Use Status: Never used Tobacco Advance Directives Date on File: 09/17/23 service: No Current occupational status: disabled Current occupation: right hand dominant Assessment & Plan Assessment & Plan (1) Overweight: Code(s): E66.3 - Overweight Category: Medical Plan Reviewed Tanita measurements, discussed that pt's weight loss was primarily fat loss, mostly preserved muscle mass likely due to meal plan with adequate protein. Had some recent labs done- CBC, chol. Will order remaining labs. Pt will follow up with GI for complaints of constipation. RTC 1 year. I spent a total of 30 minutes reviewing/updating records, examining the patient and counseling the patient on weight management as detailed above. Orders: Orders Insulin Today Z98.84 - Bariatric surgery status Hemoglobin A1c Today Z98.84 - Bariatric surgery status Zinc Today Z98.84 - Bariatric surgery status Vitamin B12 and Folate Today Z98.84 - Bariatric surgery status Vitamin B1 Today Z98.84 - Bariatric surgery status Comprehensive Met. Panel Today Z98.84 - Bariatric surgery status Vitamin A Today Z98.84 - Bariatric surgery status Vitamin D 25-OH Total Today Z98.84 - Bariatric surgery status C Reactive Protein Today Z98.84 - Bariatric surgery status TSH reflex Free T4 Today Z98.84 - Bariatric surgery status
[2024-01-19 09:33] VITALS: BP 147/74; PULSE 85; TEMP 36.6; O2SAT 98; BMI 29.4
== END 2024-01-19 10:06 | disposition home or self-care (01) ==
PROVIDERS: PCP Internal Medicine; Visit Provider Physician Assistant Surgical
DX: E66.3 Overweight (principal)
CPT/HCPCS: 99214

== ENCOUNTER → 2024-01-19 09:20 | Outpatient (BNVA) | payer OTHER, SELFPAY | PROVIDERS: PCP Internal Medicine; Visit Provider Physician Assistant Surgical | DX: E66.3 Overweight (principal); Z98.84 Bariatric surgery status; Z68.29 Body mass index [BMI] 29.0-29.9, adult | CPT/HCPCS: 99212 ==

== ENCOUNTER 2024-02-17 10:02 | Outpatient (REF) | payer OTHER, SELFPAY ==
[2024-02-17 10:22] LABS: MANUAL DIFF FLAG NO
[2024-02-17 11:04] LABS: Basophils Absolute Auto 0.1 X10*3/uL (0.0-0.2); Basophils Percent Auto 1.1 % (0-2); Eosinophils Absolute Auto 1.3 X10*3/uL (0.0-0.4); Hematocrit 33.5 % (37.0-47.0); Hemoglobin 10.6 g/dl (12.0-16.0); Imm Gran Abs Auto 0.04 X10*3/uL (0.00-0.03); Imm Gran Pct Auto 0.6 % (0.0-0.4); Lymphocytes Absolute Auto 2.1 X10*3/uL (1.2-4.9); Lymphocytes Percent Auto 29.9 % (20-40); Mean Corpuscular HGB Conc 31.6 g/dl (31.0-35.0); Mean Corpuscular Hemoglobin 27.5 pg (27.0-33.0); Mean Platelet Volume 11.4 fL (9.4-12.3); Monocytes Absolute Auto 0.5 X10*3/uL (0.1-1.2); Monocytes Percent Auto 7.3 % (2-11); Neutrophils Absolute Auto 3.1 x10*3/uL (2.0-8.3); Neutrophils Percent Auto 43.1 % (45-73); Platelet Count 188 X10*3/uL (160-400); Red Blood Count 3.85 X10*6/uL (4.20-5.50); Red Cell Distribution Width 14.9 % (11.0-16.0); White Blood Count 7.1 X10*3/uL (4.8-10.8)
[2024-02-17 11:19] LABS: Estimated Average Glucose 180 mg/dL; Hemoglobin A1C 179.1479 umol/L; Hemoglobin A1c % 7.9 % (<6.0)
[2024-02-17 11:52] LABS: Erythrocyte Sedimentation Rate 2 MM/HR (0-20)
[2024-02-17 12:04] LABS: Alanine Aminotransferase 38 U/L (0-31); Albumin Level 3.6 g/dL (3.5-5.0); Alkaline Phosphatase 70 U/L (39-117); Anion Gap 13 (12-20); Aspartate Amino Transferase 30 U/L (5-31); Bilirubin Total 0.3 mg/dL (0.0-1.0); Blood Urea Nitrogen 18 mg/dL (9-16); C Reactive Protein 0.18 mg/dL (< or = 0.50); Calcium 8.7 mg/dL (8.4-10.2); Carbon Dioxide 25 mmol/L (22-29); Chloride 104 mmol/L (96-108); Estimated Glomerular Filt Rate 43; Potassium 4.2 mmol/L (3.3-5.1); Sodium 138 mmol/L (135-145); Total Protein 5.6 g/dL (6.5-8.0)
[2024-02-17 12:10] LABS: Insulin 129 uU/mL (2-29); Vitamin D 25-OH Total 51.7 ng/mL (>30)
[2024-02-17 12:34] LABS: Folate > 20.0 ng/mL (> or = 4.0); Vitamin B12 908 pg/mL (200-900)
[2024-02-17 13:33] LABS: Free T4 (Free Thyroxine) 1.34 ng/dL (0.71-1.85)
[2024-02-17 13:38] LABS: Glucose Random 377 mg/dL (60-115)
[2024-02-20 10:37] LABS: Zinc 58 mcg/dL (60-130)
[2024-02-21 12:12] LABS: Vitamin B1 30 nmol/L (8-30)
[2024-02-24 04:28] LABS: Vitamin A 64 mcg/dL (38-98)
== END 2024-02-17 10:03 | disposition home or self-care (01) ==
LOC: HO.LAB 10:02
PROVIDERS: Absent Provider Physician Assistant Surgical; PCP Internal Medicine; Visit Provider Student in an Organized Health Care Education/Training Program
DX: Z98.84 Bariatric surgery status (principal); M05.9 Rheumatoid arthritis with rheumatoid factor, unspecified; Z13.1 Encounter for screening for diabetes mellitus
CPT/HCPCS: 36415; 80053; 82306; 82607; 82746; 83036; 83525; 84425; 84439; 84443; 84590; 84630; 85025; 85652; 86140

== ENCOUNTER 2024-02-18 09:55 | Outpatient (AMB) | payer OTHER, SELFPAY ==
--- NOTE | 2024-02-18 09:53 | MHC.OFFVIS ---
Vital Signs 02/18/24 10:18 Height 4 ft 11 in Weight 154 lb 5.177 oz BMI 31.2 BP 132/62 Blood Pressure Location Rt brachial Position Sitting Pulse 74 Pulse Source Pulse Oximeter Intake Visit Reasons: DM/LVM Intake Note: Patient present today to follow up on Type 1 Diabetes Mellitus. Last Diabetic Eye exam: Over 2 years Last Podiatry Visit: Does not see a Continuous Improvement Manager Random Glucose: 276 mg/dl HgA1C: 7.9% 02/17/24 Hydrologic Modeler Required: Yes Hydrologic Modeler Language: Pc Maintenance Technician Services: Hydrologic Modeler Present Hydrologic Modeler Name: RAJ Carney Information Interpreted: non-clinical & clinical Accompanied by: CLOTH DYE RANGE OPERATOR Allergies lorazepam [LORAZEPAM] Allergy (Severe, Verified 02/19/24 09:55) DELIRIUM celecoxib [From Celebrex] Allergy (Intermediate, Verified 02/19/24 09:55) ITCHING tramadol [TRAMADOL] Allergy (Intermediate, Verified 02/19/24 09:55) ITCHING zolpidem [Ambien] Allergy (Unknown, Verified 02/19/24 09:55) unknown HPI Comments Details: Patient is a 74-year-old female with DM type 1 diagnosed at 40 years of age, initially thought to have type 2 diabetes, who presents for management of diabetes. A1C 02/18/24 7.9%, 09/2023 8% down from previous 8.8%. She does report a history of hypoglycemic coma in the past. She had a low sugar in the 20s and was hospitalized for 1 day earlier in 2023. Her sliding scale was significantly reduced at this time. She was recently hospitalized for multiple rib fractures after a fall. She is followed by Rheumatology and is on IV Reclast yearly. Her history indicates hyperparathyroidism secondary to low vitamin-D. She has been on Levothyroxine 112 mcg daily. TSH 0.64 on 10/16/23 0.03 on 02/17/24. 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 Scalp folliculitis, fibromyalgia, microcytic anemia pernicious depression. Bariatric surgery 12/09/2016. NC in past H/o hyperparathyroidism secondary to vitamin D defiency. Micro and macrovascular complications: CAD She wanted to go on either a VGO (not approved for type 1) or a CeQur insulin patch but was not able to do a return demonstration of the correct amount of clicks to give the correct dosing despite several attempts and re instruction. Dexcom average glucose: [221 ] 14 day continuous glucose monitor report reviewed Glucose Managment indicator [8.6 ] % TIme in ranges: 34 % very high (above 250) 43 % high ?(181-250) 21 % in range ?(70-180] 0% low (69-55) 0 % ?very low (below 54) 75Standard Deviation Interpretation [overall running above target during the day but drops to 80 at night] Diabetes medications: Symptoms reported: denies numbness, tingling, cramping in lower extremities Hypoglycemia: had low sugar at night once to 59 came up with treatment 3 tablets she has nightly snack at bedtime 1/2 cup Hyperglycemia: + urinary frequency, +nocturia, +polydypsia Exercise: 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 Tang, Rheumatology Osteoporosis is being managed via annual reclast infusion through Rheumatology. Patient has a h/o hyperparathyroism secondary to vitamin D deficiency. PTH is elevated despite normal calcium and vitamin D. She has had several rib fractures. [facility] Medical History Hypoglycemia due to insulin Elevated parathyroid hormone Osteoporosis Hyperlipidemia (04/21/1959) Depressive disorder (04/21/1959) Nutritional anemia (04/21/1959) Shortness of breath Hypothyroidism (04/21/1959) Anemia Chronic gastritis Heart palpitations NSTEMI (non-ST elevated myocardial infarction) Recurrent falls (12/04/11) Iron deficiency anemia (04/21/1959) Fibromyositis (04/21/1959) Eczema (04/21/1959) High risk medication use Hepatitis C antibody positive in blood Screening for osteoporosis Screening for viral disease Joint swelling Overweight (BMI 25.0-29.9) Neck pain Swelling of knee joint, right Intra-abdominal abscess Diabetes Elevated liver function tests Intestinal malabsorption following gastrectomy Obesity (BMI 30-39.9) 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 Hypertension Cholecystitis Hyperlipidemia, unspecified Essential hypertension Atherosclerotic cardiovascular disease Fibromyalgia Folliculitis Anxiety Depression History of myocardial infarction Diabetes type 1, uncontrolled 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 Mother CVA (cerebral vascular accident) Sister Hypertension Brother Hypertension Liver cancer Social History Household Members: None Housing: Apartment Are you a primary manager intensive care unit to a significant other at home: No Do you presently have visiting nurse or other home services: Yes Unable to assess alcohol history related to: Unable to respond Alcohol intake: never Patient Tobacco Use Status: Never used Tobacco Advance Directives Date on File: 09/17/23 service: No Current occupational status: disabled Current occupation: right hand dominant Physical Exam Vital Signs: Last Vital Signs Pulse 74 02/18/24 10:18 BP 132/62 02/18/24 10:18 BMI result Body Mass Index 31.2 Const Other: Absence of Cushingoid features. Absence of acromegalic features. Neck exam reveals nl size thyroid about 15 gms. No thyroid nodules palpable. No carotid bruits present. Lungs CTA. Heart S1 S2, Reg R/R. No M/R G. Skin exam reveals absence of vitiligo or acanthosis nigricans. No edema extensive rheumatoid changes bilateral hands Visual exam of foot performed. No ulcerations or open lesions. No inter digit maceration or fissuring. +onychomycosis, nails thickened no callouses. Sensation diminshed monofilament exam. Vibratory sensation is diminshed with 128 Hz tuning fork. Results Reviewed Results Reviewed: Laboratory Last Values Glucose (Clinic) 276 mg/dL (60-115) H 02/18/24 10:30 Assessment & Plan Assessment & Plan (1) Diabetes type 1, uncontrolled: Code(s): E10.65 - Type 1 diabetes mellitus with hyperglycemia Category: Medical Qualifiers: Glycemic state: with hypoglycemia Coma presence: without coma Qualified Code(s): E10.649 - Type 1 diabetes mellitus with hypoglycemia without coma Plan: Type 1 diabetic with history of profound hypoglycemia, retinopathy, nephropathy and neuropathy with improving A1c down to 7.9%. She is doing better with less hypoglycemia since change from Lantus to Tresiba and adding dexcom glucose sensor. She is still having some readings at night to 80 and due to her profound hypoglycemia in the past we will decrease her Tresiba. A 7.9% A1c for this patient is appropriate. New dosing: Tresiba 18 units Fiasp with meals 100-150 1 unit 151-200 3 units 201-250 5 units over 250 6 units The patient had an opportunity to ask questions regarding treatment plan. The patient expressed understanding and agreement with the above treatment plan. Will contact patient next to determine who she is followed by for nephrology. The patient is aware they should contact our office by phone for worsening glucose readings or for any low blood sugars which may warrant a change in diabetes medication. Compliance is encouraged with medications and any followup testing/consults which may have been ordered. (2) Osteoporosis: Comment: DEXA 05/2023 Left femur neck T-score-3.8 Left femur total-4.1 L-spine T-score -3.6 Left clavicle and multiple rib fractures 10/2023 Code(s): M81.0 - Age-related osteoporosis without current pathological fracture Category: Medical Qualifiers: Osteoporosis type: age-related Presence of current pathological fracture: without current pathological fracture Qualified Code(s): M81.0 - Age-related osteoporosis without current pathological fracture Plan: Followed by Rheumatology (3) Hypothyroidism: Code(s): E03.9 - Hypothyroidism, unspecified Category: Medical Qualifiers: Hypothyroidism type: due to Rona's thyroiditis Qualified Code(s): E03.8 - Other specified hypothyroidism; E06.3 - Autoimmune thyroiditis Plan: TSH too suppressed and will decrease dosing. Medications: New levothyroxine 100 mcg PO DAILY 90 days 90 tabs 3RF E03.8 - Other specified hypothyroidism, E06.3 - Autoimmune thyroiditis Discontinued levothyroxine Discontinued Reason: Doctor's Order 112 mcg PO DAILY 30 tabs 5RF blood-glucose sensor (Dexcom G7 Sensor device) Discontinued Reason: Doctor's Order As directed 3 ea 11RF Coding Level of Care Code Est Pt Level 4 (62123) Complex EM visit Add On G2211 Diagnoses Uncontrolled type 1 diabetes mellitus with hypoglycemia without coma E10.649 Glycemic state: with hypoglycemia Coma presence: without coma Age-related osteoporosis without current pathological fracture M81.0 Osteoporosis type: age-related Presence of current pathological fracture: without current pathological fracture 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
[2024-02-18 10:18] VITALS: BP 132/62; PULSE 74; BMI 31.2
[2024-02-18 10:34] LABS: Glucose, Whole Blood 276 mg/dL (60-115)
== END 2024-02-18 10:53 | disposition home or self-care (01) ==
LOC: HO.ENCR 09:55
PROVIDERS: PCP Internal Medicine; Visit Provider Nurse Practitioner Adult Health
DX: E10.649 Type 1 diabetes mellitus with hypoglycemia without coma (principal); M81.0 Age-related osteoporosis without current pathological fracture; E03.8 Other specified hypothyroidism; E06.3 Autoimmune thyroiditis
CPT/HCPCS: 99214; G2211

== ENCOUNTER → 2024-02-18 09:55 | Outpatient (BNVA) | payer OTHER, SELFPAY | PROVIDERS: PCP Internal Medicine; Visit Provider Nurse Practitioner Adult Health | DX: E10.649 Type 1 diabetes mellitus with hypoglycemia without coma (principal); E03.8 Other specified hypothyroidism; E06.3 Autoimmune thyroiditis; M81.0 Age-related osteoporosis without current pathological fracture; Z79.4 Long term (current) use of insulin | CPT/HCPCS: 82947; 99212 ==

== ENCOUNTER 2024-02-19 09:49 | Outpatient (AMB) | payer OTHER, SELFPAY ==
[2024-02-19 09:53] VITALS: BP 136/76; PULSE 52; O2SAT 100; BMI 30.3
--- NOTE | 2024-02-19 09:53 | MHC.OFFVIS ---
Vital Signs 02/19/24 09:53 Height 4 ft 11 in Weight 149 lb 14.629 oz BMI 30.3 BP 136/76 Blood Pressure Location Lt brachial Position Sitting Pulse 52 Pulse Source Pulse Oximeter Pulse Oximetry (%) 100 Oxygen Delivery Method Room Air Intake Visit Reasons: RA/cm Intake Note: Patient last seen by Doctor Briseida Rocha on 11/19/23. Presents today for RA follow up and test results.? Cutter And Edge Trimmer Name: Janna [id number] Accompanied by: REGIONAL MARKETING DIRECTOR Allergies lorazepam [LORAZEPAM] Allergy (Severe, Verified 02/19/24 09:55) DELIRIUM celecoxib [From Celebrex] Allergy (Intermediate, Verified 02/19/24 09:55) ITCHING tramadol [TRAMADOL] Allergy (Intermediate, Verified 02/19/24 09:55) ITCHING zolpidem [Ambien] Allergy (Unknown, Verified 02/19/24 09:55) unknown Medication List - Last Reconciled 02/19/24 by Briseida Rocha MD acetaminophen 650 mg (2 x 325 mg) PO Q6H PRN Actemra ACTPen (tocilizumab) 162 mg (0.9 mL) subcut Q2W NS albuterol sulfate 90 mcg/actuation 2 puffs inhalation Q4-6H PRN albuterol sulfate 2.5 mg (3 mL) inhalation Q3H PRN amlodipine 10 mg PO DAILY aripiprazole 20 mg PO DAILY atorvastatin 20 mg PO DAILY bisacodyl 10 mg (2 x 5 mg) PO BEDTIME blood sugar diagnostic (FreeStyle Lite Strips) TEST BLOOD SUGAR 8 TIMES EVERY DAY blood-glucose meter (FreeStyle Lite Meter kit) As directed blood-glucose sensor (Vive Nano G7 Sensor device) As directed calcium citrate 400 mg (2 x 200 mg (950 mg)) PO BID 30 days carvedilol 6.25 mg PO BID cholecalciferol (vitamin D3) (Vitamin D3) 50 mcg PO QAM clonazepam 1 tab PO Q8H PRN clopidogrel 75 mg PO QAM cyclobenzaprine 10 mg PO TID PRN esomeprazole magnesium 40 mg PO DAILY folic acid 1 mg PO DAILY gabapentin 100 mg PO BID glucagon 3 mg/actuation (Baqsimi) 3 mg intranasal ONCE PRN 30 days glucagon 3 mg/actuation (Baqsimi) 3 mg intranasal ONCE PRN 30 days hydroxyzine HCl 10 mg PO Q8H PRN insulin aspart (niacinamide) 100 unit/mL (3 mL) (Fiasp FlexTouch U-100 Insulin) 2 - 14 sliding scale doses subcut QIDACHS insulin syringe-needle U-100 (BD Insulin Syringe Ultra-Fine) As directed 3 times per day ipratropium-albuterol 0.5 mg-3 mg(2.5 mg base)/3 mL 3 mL inhalation RQ4H WHILE AWAKE 7 days levothyroxine 100 mcg PO DAILY 90 days linaclotide (Linzess) 290 mcg PO QAM losartan 100 mg PO DAILY melatonin 3 mg PO BEDTIME methocarbamol 500 mg PO DAILY nebulizers As directed nut.tx.gluc.intol,lac-free,soy (Glucerna oral liquid) 1 ea PO BID 28 days ondansetron 4 mg PO Q8H PRN oxycodone 5 mg PO Q4H PRN oxycodone ER (OxyContin) 10 mg PO BID pen needle, diabetic (Pentips) USE FIVE TIMES DAILY prazosin 6 mg PO BEDTIME Tresiba FlexTouch U-100 (insulin degludec) 20 units (0.2 mL) subcut DAILY 30 days NS venlafaxine ER (Effexor XR) 150 mg PO DAILY HPI Comments Details: 74-year-old female with seropositive RA returns for follow-up. She remains on Actemra subcu injections every other week. She states that she is doing reasonably well overall. She continues to have diffuse pain. Initial history : This is a 72-year-old female who presents for evaluation of joint pain. Patient states that she started having pain and swelling of her hands and feet, ankles over the last 6 months associated with morning stiffness lasting 10 minutes. She has had back pain for years. Meloxicam is not helpful. She is unaware of any family history of autoimmune rheumatic disease. She denies any skin rashes. Denies any history of DVT/PE or recurrent abortions. [facility] Medical History Hypoglycemia due to insulin Elevated parathyroid hormone Osteoporosis Hyperlipidemia (04/21/1959) Depressive disorder (04/21/1959) Nutritional anemia (04/21/1959) Shortness of breath Hypothyroidism (04/21/1959) Anemia Chronic gastritis Heart palpitations NSTEMI (non-ST elevated myocardial infarction) Recurrent falls (12/04/11) Iron deficiency anemia (04/21/1959) Fibromyositis (04/21/1959) Eczema (04/21/1959) High risk medication use Hepatitis C antibody positive in blood Screening for osteoporosis Screening for viral disease Joint swelling Overweight (BMI 25.0-29.9) Neck pain Swelling of knee joint, right Intra-abdominal abscess Diabetes Elevated liver function tests Intestinal malabsorption following gastrectomy Obesity (BMI 30-39.9) 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 Hypertension Cholecystitis Hyperlipidemia, unspecified Essential hypertension Atherosclerotic cardiovascular disease Fibromyalgia Folliculitis Anxiety Depression History of myocardial infarction Diabetes type 1, uncontrolled 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 Mother CVA (cerebral vascular accident) Sister Hypertension Brother Hypertension Liver cancer Social History Household Members: None Housing: Apartment Are you a primary rn acute care to a significant other at home: No Do you presently have visiting nurse or other home services: Yes Unable to assess alcohol history related to: Unable to respond Alcohol intake: never Patient Tobacco Use Status: Never used Tobacco Advance Directives Date on File: 09/17/23 service: No Current occupational status: disabled Current occupation: right hand dominant Female Reproductive History Menstrual Total pregnancies: 3 Full term: 3 Review of Systems Musc Reports arthralgias and Reports stiffness Physical Exam Vital Signs: Last Vital Signs Pulse 52 02/19/24 09:53 BP 136/76 02/19/24 09:53 Pulse Ox 100 02/19/24 09:53 Oxygen Delivery Method Room Air 02/19/24 09:53 BMI result Body Mass Index 30.3 Const General: cooperative, healthy appearing and comfortable Nutritional Appearance: obese Orientation/consciousness: patient oriented x3 Limitations: ambulation with cane HEENT Head: Yes normocephalic and Yes atraumatic Resp Effort & Inspection: normal respiratory effort and able to speak in complete sentences Auscultation: clear to auscultation bilaterally Skin General skin exam: no rashes or lesions noted Neuro General: patient oriented x3 Extrem Other: Prominent RA deformities in both hands with some ulnar deviation at the MCPs No wrist swelling bilaterally, no wrist tenderness bilaterally, no wrist pain with flexion-extension No tenderness or swelling of the PIP is of the right hand Left hand dorsal swelling and flexion contracture of the left 4th finger Swelling and mild tenderness of the left 2nd and 3rd MCPs, swelling and tenderness of the left 3rd PIP No knee pain, swelling or warmth or pain with flexion-extension No ankle swelling or tenderness bilaterally No MTP tenderness and negative MTP squeeze test bilaterally Normal nailfold capillaroscopy Kyphotic Assessment & Plan Assessment & Plan (1) Seropositive rheumatoid arthritis: Comment: +RF -ve CCP dx 02/10 Enbrel 02/2023 partially effective DC 09/2023 Actemra 10/2023 effective Code(s): M05.9 - Rheumatoid arthritis with rheumatoid factor, unspecified Category: Medical Plan: This is a 74-year-old female with seropositive RA who returns for follow-up. On Actemra 162 mg subcutaneously every other week. On exam she is doing much better overall. Overall she has much less swollen and tender joints. She continues to have some swelling of the dorsum of her left hand which may be related to the ruptured tendon. Continue Actemra 162 mg every other week Labs before next visit in 4 months (2) Hepatitis C antibody positive in blood: Code(s): R76.8 - Other specified abnormal immunological findings in serum Category: Medical Plan: Positive hepatitis-C antibody with negative hep C RNA. Labs in 2021 showed negative hepatitis-C antibody. Unclear cause. Patient might have cleared hepatitis C infection or a lab error. (3) High risk medication use: Code(s): Z79.899 - Other management nurse rn (current) drug therapy Category: Medical Plan: Side effects of Actemra were discussed with the patient in detail including increased risk of infection, reactivation of latent TB, possible increased risk of solid and skin tumors. Patient fully aware. Advised patient to seek medical care JEFFREY if patient has an infection and advised patient to stop the medication until the infection is resolved. (4) 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: Code(s): S63.659A - Sprain of metacarpophalangeal joint of unspecified finger, initial encounter Category: Medical Qualifiers: Encounter type: initial encounter Qualified Code(s): S63.659A - Sprain of metacarpophalangeal joint of unspecified finger, initial encounter Plan: I think this was due to poorly-controlled rheumatoid arthritis. She was evaluated by hand surgeon and surgery was suggested but patient's HbA1c is above 8%. Most recent HbA1c is 7.9%. Advised patient to control her diabetes as much as possible in order to qualify for surgical repair (5) Osteoporosis: Comment: DEXA 05/2023 Left femur neck T-score-3.8 Left femur total-4.1 L-spine T-score -3.6 Left clavicle and multiple rib fractures 10/2023 Code(s): M81.0 - Age-related osteoporosis without current pathological fracture Category: Medical Qualifiers: Osteoporosis type: age-related Presence of current pathological fracture: without current pathological fracture Qualified Code(s): M81.0 - Age-related osteoporosis without current pathological fracture Plan: DEXA shows severe osteoporosis. She received 1st dose of Reclast 09/2023, infusion was uneventful. Plan to repeat Reclast next 09/2024 Vitamin-D level at target. Continue current vitamin-D dose Plan I spent 26 minutes reviewing patient's chart, evaluating patient, ordering diagnostic workup, counseling patient and documenting in the chart Orders: Orders Comprehensive Met. Panel 4 Months M05.9 - Rheumatoid arthritis with rheumatoid factor, unspecified C Reactive Protein 4 Months M05.9 - Rheumatoid arthritis with rheumatoid factor, unspecified Complete Blood Count Auto Diff 4 Months M05.9 - Rheumatoid arthritis with rheumatoid factor, unspecified Erythrocyte Sedimentation Rate 4 Months M05.9 - Rheumatoid arthritis with rheumatoid factor, unspecified Medications: Discontinued prednisone Discontinued Reason: Patient Completed Course 20 mg PO DAILY 4 tabs 0RF Coding Level of Care Code Est Pt Level 4 (90157) Complex EM visit Add On G2211 Diagnoses Seropositive rheumatoid arthritis M05.9 Hepatitis C antibody positive in blood R76.8 High risk medication use Z79.899 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, initial encounter S63.659A Encounter type: initial encounter Age-related osteoporosis without current pathological fracture M81.0 Osteoporosis type: age-related Presence of current pathological fracture: without current pathological fracture
== END 2024-02-19 10:17 | disposition home or self-care (01) ==
LOC: HO.RHE 09:50
PROVIDERS: PCP Internal Medicine; Visit Provider Student in an Organized Health Care Education/Training Program
DX: M05.79 Rheumatoid arthritis with rheumatoid factor of multiple sites without organ or systems involvement (principal); R76.8 Other specified abnormal immunological findings in serum; Z79.899 Other long term (current) drug therapy; S63.659A Sprain of metacarpophalangeal joint of unspecified finger, initial encounter; M81.0 Age-related osteoporosis without current pathological fracture
CPT/HCPCS: 99214; G2211

== ENCOUNTER → 2024-02-19 09:49 | Outpatient (BNVA) | payer OTHER, SELFPAY | PROVIDERS: PCP Internal Medicine; Visit Provider Student in an Organized Health Care Education/Training Program | DX: M05.9 Rheumatoid arthritis with rheumatoid factor, unspecified (principal); M81.0 Age-related osteoporosis without current pathological fracture; S63.659D Sprain of metacarpophalangeal joint of unspecified finger, subsequent encounter; R76.8 Other specified abnormal immunological findings in serum; Z79.899 Other long term (current) drug therapy | CPT/HCPCS: 99212 ==

== ENCOUNTER 2024-03-17 09:34 | Outpatient (AMB) | payer OTHER, SELFPAY ==
--- NOTE | 2024-03-17 07:35 | A.OFFVIS_ITS ---
Vital Signs 03/17/24 09:41 Height 4 ft 11 in Weight 147 lb 7.828 oz BMI 29.8 BP 126/54 L Blood Pressure Location Lt brachial Position Sitting Pulse 77 Pulse Source Pulse Oximeter Intake Visit Reasons: DM/LVM Intake Note: Patient presents today for D2MT follow up visit. Last Diabetic Eye exam: 01/2024 Last Podiatry Visit: Doesn't have one Random Glucose: 248 mg/dl HgA1c: 7.9% 02/17/24 Warehouse Freight Handler Required: Yes Warehouse Freight Handler Language: Centralized Traffic Control Operator Services: Warehouse Freight Handler Present Information Interpreted: non-clinical & clinical Accompanied by: NITROGLYCERIN SEPARATOR OPERATOR Allergies lorazepam [LORAZEPAM] Allergy (Severe, Verified 03/17/24 09:47) DELIRIUM celecoxib [From Celebrex] Allergy (Intermediate, Verified 03/17/24 09:47) ITCHING tramadol [TRAMADOL] Allergy (Intermediate, Verified 03/17/24 09:47) ITCHING zolpidem [Ambien] Allergy (Unknown, Verified 03/17/24 09:47) unknown HPI Comments Details: Patient is a 74-year-old female with DM type 1 diagnosed at 40 years of age, initially thought to have type 2 diabetes, who presents for management of diabetes. A1C 02/18/24 7.9%, 09/2023 8% down from previous 8.8%. She does report a history of hypoglycemic coma in the past. She had a low sugar in the 20s and was hospitalized for 1 day earlier in 2023. Her sliding scale was significantly reduced at this time. She was recently hospitalized for multiple rib fractures after a fall. She is followed by Rheumatology and is on IV Reclast yearly. Her history indicates hyperparathyroidism secondary to low vitamin-D. She has been on Levothyroxine 112 mcg daily. TSH 0.64 on 10/16/23 0.03 on 02/17/24. 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 Scalp folliculitis, fibromyalgia, microcytic anemia pernicious depression. Bariatric surgery 12/09/2016. MS in [facility] H/o hyperparathyroidism secondary to vitamin D defiency. Micro and macrovascular complications: CAD She wanted to go on either a VGO (not approved for type 1) or a CeQur insulin patch but was not able to do a return demonstration of the correct amount of clicks to give the correct dosing despite several attempts and re instruction. Dexcom average glucose: [246 ] 14 day continuous glucose monitor report reviewed Glucose Managment indicator [9.2] % TIme in ranges: 45 % very high (above 250) 40 % high ?(181-250) 15 % in range ?(70-180] 0% low (69-55) 0 % ?very low (below 54) 75Standard Deviation Symptoms reported: denies numbness, tingling, cramping in lower extremities Hypoglycemia: had low sugar at night once to 59 came up with treatment 3 tablets she has nightly snack at bedtime 1/2 cup Hyperglycemia: + urinary frequency, +nocturia, +polydypsia Exercise: denies Guest Relation Officer - CDE education Manager General: in past would like referral Ophthalmology evaluation:last eye exam 12/2023 mild retinopathy she is to schedule an appt with retinal specialist Other specialists: report programmer, neurologist, Dr. Tang, Rheumatology Osteoporosis is being managed via annual reclast infusion through Rheumatology. Patient has a h/o hyperparathyroism secondary to vitamin D deficiency. PTH is elevated despite normal calcium and vitamin D. She has had several rib fractures. [facility] Medical History Hypoglycemia due to insulin Elevated parathyroid hormone Osteoporosis Hyperlipidemia (04/21/1959) Depressive disorder (04/21/1959) Nutritional anemia (04/21/1959) Shortness of breath Hypothyroidism (04/21/1959) Anemia Chronic gastritis Heart palpitations NSTEMI (non-ST elevated myocardial infarction) Recurrent falls (12/04/11) Iron deficiency anemia (04/21/1959) Fibromyositis (04/21/1959) Eczema (04/21/1959) High risk medication use Hepatitis C antibody positive in blood Screening for osteoporosis Screening for viral disease Joint swelling Overweight (BMI 25.0-29.9) Neck pain Swelling of knee joint, right Intra-abdominal abscess Diabetes Elevated liver function tests Intestinal malabsorption following gastrectomy Obesity (BMI 30-39.9) 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 Hypertension Cholecystitis Hyperlipidemia, unspecified Essential hypertension Atherosclerotic cardiovascular disease Fibromyalgia Folliculitis Anxiety Depression History of myocardial infarction Diabetes type 1, uncontrolled 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 Mother CVA (cerebral vascular accident) Sister Hypertension Brother Hypertension Liver cancer Social History Household Members: None Housing: Apartment Are you a primary adult care provider to a significant other at home: No Do you presently have visiting nurse or other home services: Yes Unable to assess alcohol history related to: Unable to respond Alcohol intake: never Patient Tobacco Use Status: Never used Tobacco Advance Directives Date on File: 09/17/23 service: No Current occupational status: disabled Current occupation: right hand dominant Physical Exam Vital Signs: Last Vital Signs Pulse 77 03/17/24 09:41 BP 126/54 L 03/17/24 09:41 BMI result Body Mass Index 29.8 Const Other: Absence of Cushingoid features. Absence of acromegalic features. Neck exam reveals nl size thyroid about 15 gms. No thyroid nodules palpable. Heart S1 S2, Reg R/R. No M/R G. Skin exam reveals absence of vitiligo or acanthosis nigricans. Results Reviewed Results Reviewed: Laboratory Last Values Glucose (Clinic) 248 mg/dL (60-115) H 03/17/24 09:50 Assessment & Plan Assessment & Plan (1) Diabetes type 1, uncontrolled: Code(s): E10.65 - Type 1 diabetes mellitus with hyperglycemia Category: Medical Qualifiers: Glycemic state: with hypoglycemia Coma presence: without coma Qualified Code(s): E10.649 - Type 1 diabetes mellitus with hypoglycemia without coma Plan: 74-year-old type 1 diabetic with a history of severe hypoglycemia most recent glucose download with a GME my of 9.2% withheld lows. Tresiba 18 units Fiasp 100-151 unit 151-200 4 units 201-250 5 units 250-300 6 year Over 300 70 units The patient had an opportunity to ask questions regarding treatment plan. The patient expressed understanding and agreement with the above treatment plan. The patient is aware they should contact our office by phone for worsening glucose readings or for any low blood sugars which may warrant a change in diabetes medication. Compliance is encouraged with medications and any followup testing/consults which may have been ordered. Patient Instructions: The patient was counseled to always carry a source of sugar and on the rule of 15's: Take 3 glucose tablets and repeat again in 15 minutes if blood sugar is not in normal range. Continue to repeat every 15 minutes until blood sugar is normal. Coding Level of Care Code Est Pt Level 4 (05612) Complex EM visit Add On G2211 Diagnoses Uncontrolled type 1 diabetes mellitus with hypoglycemia without coma E10.649 Glycemic state: with hypoglycemia Coma presence: without coma Time Spent (min) 30 Comment Time spent reviewing labs/provider notes, face to face, chart doc
[2024-03-17 09:41] VITALS: BP 126/54; PULSE 77; BMI 29.8
[2024-03-17 09:53] LABS: Glucose, Whole Blood 248 mg/dL (60-115)
== END 2024-03-17 10:36 | disposition home or self-care (01) ==
PROVIDERS: PCP Internal Medicine; Visit Provider Nurse Practitioner Adult Health
DX: E10.649 Type 1 diabetes mellitus with hypoglycemia without coma (principal)
CPT/HCPCS: 99214; G2211

== ENCOUNTER → 2024-03-17 09:34 | Outpatient (BNVA) | payer OTHER, SELFPAY | PROVIDERS: PCP Internal Medicine; Visit Provider Nurse Practitioner Adult Health | DX: E10.649 Type 1 diabetes mellitus with hypoglycemia without coma (principal); Z79.4 Long term (current) use of insulin | CPT/HCPCS: 82947; 99212 ==

== ENCOUNTER 2024-03-17 10:45 | Outpatient (RCR) | payer OTHER, SELFPAY ==
--- NOTE | 2024-01-13 13:59 | MHC.PT.EP ---
[facility] [place] Office [place] Office [place] Office [address] [phone] F: [phone] F: [phone] F: [phone] F: [phone] Physical Therapy Plan of Care Date of Evaluation: 01/13/24 Date of Surgery: Diagnosis: RIGHT clavicle fracture, NO surgery (DOI: 08/27/23) Assessment: Brandie is a pleasant Scottish speaking 73 y.o. female who is referred to PT by Elise Byrd PA-C with Dx of RIGHT clavicle fracture, NO surgery (DOI: 08/27/23).Patient impairments include poor posture, high fall risk with fx of recurrent falls, limited shoulder ROM, weakness L shoulder and UE. Patient current functional limitations are difficulty lifting arm to reach for objects in fridge or cabinet, unable to reach behind back, cannot wash/comb hair, cannot dress without assist. Patient will benefit from skilled PT to address aforementioned impairments and functional limitations to meet established goals. Frequency and Duration: The patient will be seen 1-2x/week for 4 weeks Short Term Goals: 2 weeks Patient demonstrates consistency and independence with HEP to self manage symptoms. [facility] Goals: 4 weeks Brandie presents with increased L shoulder ER AROM 60 degrees to be able to reach behind back for dressing with less UMBRELLA TIPPER HAND assist. Brandie presents with increased L shoulder flexion AROM 130 degrees to be able to reach top of head for bathing. Treatment Plan: Modalities to reduce pain, spasms and effusion. Manual therapy to restore motion and function. Therapeutic exercise to improve strength and flexibility. Neuromuscular re-education for posture and balance. Therapeutic activities to return to functional activities of daily living. Electronically signed by: Octavio Oscar, PT, DPT Please sign and return to therapist. Thank you for your referral.
--- NOTE | 2024-04-23 09:50 | MHC.PT.DC ---
[facility] [place] Office [place] Office [place] Office [address] Lizbet Stoll [address] [phone] F: [phone] F: [phone] F: [phone] F: [phone] Physical Therapy Discharge Report Diagnosis: LEFT clavicle fracture, NO surgery (DOI: 08/27/23) Date of Surgery: Date of Evaluation: 01/13/24 Date of Discharge: 04/23/24 Treatments to Date: 7 Cancellations to Date: 2 No Shows to Date: 0 Discharge Status: Improved Function Independent with HEP Discharge Summary: Brandie was last seen in PT on 03/17/24. The assessment reads, Brandie feels ready for discharge, functionally she can reach to high shelf/cabinet and top of her head for washing hair, and has been able to tolerate more strengthening for her shoulder without pain. Her AROM has also improved significantly. She is therefore discharged from physical therapy. Electronically signed by: Octavio Oscar, PT, DPT Please sign and return to therapist. Thank you for your referral.
== END 2024-04-23 09:51 | disposition home or self-care (01) ==
LOC: HO.PT 10:45
PROVIDERS: PCP Internal Medicine; Visit Provider Physician Assistant
DX: S42.001D Fracture of unspecified part of right clavicle, subsequent encounter for fracture with routine healing (principal)
CPT/HCPCS: 97110; 97140; 97162; 97530

== ENCOUNTER 2024-04-26 10:37 | Outpatient (AMB) | payer OTHER, SELFPAY ==
--- NOTE | 2024-04-26 10:44 | A.OFFVIS_ITS ---
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 Services: Coffee Attendant Present Coffee Attendant Name: [facility] [place] Accompanied by: Other Relationship Allergies lorazepam [LORAZEPAM] Allergy (Severe, Verified 03/17/24 09:47) DELIRIUM celecoxib [From Celebrex] Allergy (Intermediate, Verified 03/17/24 09:47) ITCHING tramadol [TRAMADOL] Allergy (Intermediate, Verified 03/17/24 09:47) ITCHING zolpidem [Ambien] Allergy (Unknown, Verified 03/17/24 09:47) unknown HPI Comprehensive Diabetes Asmnt Most Recent Diabetes Results: Hemoglobin A1c 6.7 % 04/24/18 Microalb/Creat Ratio 36.0 ug/mg cr (<30) H 07/02/23 Cholesterol 95 mg/dL (<200) 10/31/23 HDL Cholesterol 38 mg/dL (>40) L 10/31/23 Triglycerides 74 mg/dL (<150) 10/31/23 Creatinine 1.23 mg/dL (0.5-1.4) 02/17/24 Blood Urea Nitrogen 18 mg/dL (9-16) H 02/17/24 Sodium 138 mmol/L (135-145) 02/17/24 Potassium 4.2 mmol/L (3.3-5.1) 02/17/24 Chloride 104 mmol/L (96-108) 02/17/24 Carbon Dioxide 25 mmol/L (22-29) 02/17/24 Calcium 8.7 mg/dL (8.4-10.2) 02/17/24 AST 30 U/L (5-31) 02/17/24 ALT 38 U/L (0-31) H 02/17/24 Total Protein 5.6 g/dL (6.5-8.0) L 02/17/24 Albumin 3.6 g/dL (3.5-5.0) 02/17/24 [facility] Medical History Hypoglycemia due to insulin Elevated parathyroid hormone Osteoporosis Hyperlipidemia (04/21/1959) Depressive disorder (04/21/1959) Nutritional anemia (04/21/1959) Shortness of breath Hypothyroidism (04/21/1959) Anemia Chronic gastritis Heart palpitations NSTEMI (non-ST elevated myocardial infarction) Recurrent falls (12/04/11) Iron deficiency anemia (04/21/1959) Fibromyositis (04/21/1959) Eczema (04/21/1959) High risk medication use Hepatitis C antibody positive in blood Screening for osteoporosis Screening for viral disease Joint swelling Overweight (BMI 25.0-29.9) Neck pain Swelling of knee joint, right Intra-abdominal abscess Diabetes Elevated liver function tests Intestinal malabsorption following gastrectomy Obesity (BMI 30-39.9) 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 Hypertension Cholecystitis Hyperlipidemia, unspecified Essential hypertension Atherosclerotic cardiovascular disease Fibromyalgia Folliculitis Anxiety Depression History of myocardial infarction Diabetes type 1, uncontrolled 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 Mother CVA (cerebral vascular accident) Sister Hypertension Brother Hypertension Liver cancer Social History Household Members: None Housing: Apartment Are you a primary rn home care to a significant other at home: No Do you presently have visiting nurse or other home services: Yes Unable to assess alcohol history related to: Unable to respond Alcohol intake: never Patient Tobacco Use Status: Never used Tobacco Advance Directives Date on File: 09/17/23 service: No Current occupational status: disabled Current occupation: right hand dominant Assessment & Plan Assessment & Plan (1) Diabetes type 1, uncontrolled: Code(s): E10.65 - Type 1 diabetes mellitus with hyperglycemia Qualifiers: Glycemic state: with hypoglycemia Coma presence: without coma Qualified Code(s): E10.649 - Type 1 diabetes mellitus with hypoglycemia without coma Plan: Personal Continuous Glucose Monitor: Patients CGM information reviewed, Pt uses Dexcom G7, with draw hand Sensor data: Hypoglycemia: ? 0% Hyperglycemia:? 74% Time in Range:26%? Average glucose for the last 4 days 267? mg/dL Pt's current insulin plan: Tresiba 18 units Fiasp 100-150 1 unit 151-200 4 units 201-250 5 units 251-300 6 year Over 301 7 units Due to risk?of hypoglycemia I would not recommend adjusting insulin at this time. Patient has [employer] that prepares meals, reviewed with patient and [employer] which foods contain carbohydrates. Patient given typical [place] foods handout and healthy plate handout Patient is reports she needs surgery on her left hand. But the surgeon will not operate until her A1c is closer to 7 % Patient has upcoming appointment with [facility] on 05/18/2024, recommended to patient and [employer] they discuss this with provider Patient's [employer] able to insert sensor independently at home without issue.? Patient will follow-up with hims manager as needed Portions of this note were created using voice recognition software, please excuse any words or phrases that may have been misinterpreted. Coding Level of Care Code Est Pt Level 1 (22750) Diagnoses Uncontrolled type 1 diabetes mellitus with hypoglycemia without coma E10.649 Glycemic state: with hypoglycemia Coma presence: without coma
--- OUTSIDE RECORDS SUMMARY | 2024-04-26 11:47 | XMS_ITS | Data Portability ---
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 Plan of Treatment Reminders Order Date Submit Date Provider Last Modified By Organization Details Last Modified Time Details Appointments None recorded. Lab None recorded. Referral None recorded. Procedures None recorded. Surgeries None recorded. Imaging None recorded. Medication Orders oxycodone 5 mg tablet 2023 024 [facility] , [address] [place] [address], [address], 4 13:28:18 oxycodone 5 mg tablet 2023 024 [facility] , [address] [place] [address], [address], 4 21:23:28 Patient TargetsNo targets recorded. Patient InstructionsNo instructions recorded. Reason for Referral None Reported. 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 Dori Pena NP [address] [facility], [address], [place], [address], [facility] [employer] 4 15:49:21 Hypertensive disorder 09206132 Active 2023 Dori Pena NP [address], [address], [place], [address], [facility] 4 15:49:57 Gastroesophage al reflux disease 012504919 Active 2023 Dori Pena NP [address], [address], [place], [address], [place] [facility] 4 15:51:24 Rheumatoid arthritis 60395643 Active 2023 Dori Pena NP [address], [address], [place], [address], [facility] 4 15:51:29 Mixed anxiety and depressive disorder 301162071 Active 2023 Dori Pena NP [address], [address], [place], [address], [place] [facility] 4 15:51:45 Obesity 996819173 Active 2023 Dori Pena NP [address], [address], [place], [address], [facility] 4 15:51:51 Closed flail chest 526765754 Active 2023 Dori Pena NP [address], [address], [place], [address], [facility] 4 15:52:35 Asthenia 33408124 Active 2023 Dori Pena NP [address], [address], [place], [address], [facility] 4 15:52:46 Irritable bowel syndrome 96539579 Active 2023 Dori Pena NP [address], [address], [place], [address], [facility] 4 16:06:46 Recurrent falls 944439299 Active 2023 Dori Pena NP [address], [address], [place], [address], [facility] 4 16:38:03 Problem Notes None recorded. Procedures Surgical History Date Name Laterality Status Provider Name and Address Organization Details Recorded Time bypass gastroenterostomy completed Dori Pena, AAKASH [address], [place], [address], [facility] 09/17/2023 15:40:41 Laparoscopic cholecystectomy completed Dori Pena, AAKASH [address], [address], [place], [address], [facility] 09/17/2023 15:41:25 fixed suspension procedure of urinary bladder neck completed Dori Pena NP [address], [place], [address], [facility] 09/17/2023 15:42:01 Appendectomy completed Dori Pena NP [address], [place], [address], [facility] 09/17/2023 15:42:11 bilateral cataract surgery completed Dori Pena NP [address] [facility], [address], [place], [address], [facility] 09/17/2023 15:42:26 Imaging Results None recorded. Procedure Notes None recorded. Medical Equipment None Reported. Allergies Allergen ID Allergen Name Allergen Category Reaction Reaction Severity Criticality Documentation Date Start Date Code Code System Note Provider Name and Address Organization Details Recorded Time [id number] 29b50 celecoxib medicatio n other [facility] 09/17/2023 55559 7 RxNorm unkno wn Not Available Not Available Not Available [id number] 29b50 lorazepam medicatio n other Not [facility] 09/17/2023 6470 RxNorm unkno wn Not Available Not Available Not Available [id number] 29b50 tramadol medicatio n other Not available unabletoasse 09/17/2023 02671 RxNorm unkno wn Not Available Not Available Not Available [id number] 29b50 zolpidem medicatio n other Not available [facility] 09/17/2023 28893 RxNorm unkno wn Not Available Not Available Not Available Medications Name Sig Start Date Stop Date Status Note LastModified by Organization Details LastModified Time oxycodone 5 mg tablet Take 1 tablet every 4 hours by oral route as needed, for pain. 024 active Not Available Not Available Not Avai lable OxyContin 10 mg tablet,tyson h resistant,e xtended release Take 1 tablet every day by oral route. 024 active Not Available Not Available Not Avai lable Vitals Date Recorded Body weight Heart rate Respiratory rate Body temperature Oxygen saturation Oxygen saturation in Arterial blood by Pulse oximetry Systolic blood pressure Diastolic blood pressure Provider Name and Address Organization Details Last Updated DateTime 4 54604.7 8 g 98 /min 18 /min 97.8 [degF] 94 % 94 % 150 mm[Hg] 77 mm[Hg] Dori Pena NP [address] [address], [place], [address] , [facility] 4 10:49:41 Date Recorded Body weight Heart rate Respiratory rate Body temperature Oxygen saturation Oxygen saturation in Arterial blood by Pulse oximetry Systolic blood pressure Diastolic blood pressure Provider Name and Address Organization Details Last Updated DateTime 4 28587.7 8 g 83 /min 18 /min 97 [degF] 98 % 98 % 148 mm[Hg] 74 mm[Hg] Dori Pena NP [address] [facility] [address], [place], [address] , [facility] [facility] 4 13:29:12 Date Recorded Body weight Heart rate Respiratory rate Body temperature Oxygen saturation Oxygen saturation in Arterial blood by Pulse oximetry Systolic blood pressure Diastolic blood pressure Provider Name and Address Organization Details Last Updated DateTime 4 96670.7 8 g 76 /min 18 /min 97.8 [degF] 97 % 97 % 128 mm[Hg] 78 mm[Hg] Dori Pena NP [address] [facility] [address], [place], [address] , [facility] 4 12:05:35 Date Recorded Body weight Heart rate Respiratory rate Body temperature Oxygen saturation Oxygen saturation in Arterial blood by Pulse oximetry Systolic blood pressure Diastolic blood pressure Provider Name and Address Organization Details Last Updated DateTime 4 92068 g 80 /min 18 /min 98 [degF] 95 % 95 % 111 mm[Hg] 60 mm[Hg] Dori Pena NP [address] [facility], [facility] [address], [place], [address], [facility] 4 11:40:36 Date Recorded Body weight Heart rate Respiratory rate Body temperature Oxygen saturation Oxygen saturation in Arterial blood by Pulse oximetry Systolic blood pressure Diastolic blood pressure Provider Name and Address Organization Details Last Updated DateTime 4 98249 g 74 /min 18 /min 98.4 [degF] 95 % 95 % 124 mm[Hg] 68 mm[Hg] Dori Pena NP [address] [facility], [facility] [address], [place], [address], [facility] 4 13:12:09 Social History Question Answer Notes LastModified by Organizat ion Details LastModified Time Tobacco Smoking Status Never Smoker Dori Pena NP [address] [facility] [address], [place], [address], [facility] 09/17/2023 15:39:38 Do You Have An Advance Directive? No Information not available 09/17/2023 What Is Your Level Of Alcohol Consumption? None Information not available 09/17/2023 What Is Your Code Status? Full Code Information not available 09/17/2023 What Was The Date Of Your Most Recent Tobacco Screening? 09/17/2023 Information not available 09/17/2023 Do You Have An Out Of Hospital DNR? No Information not available 09/17/2023 Do You Use Any Illicit Or Recreational Drugs? No Information not available 09/17/2023 Has Tobacco Cessation Counseling Been Provided? No Information not available 09/17/2023 Do You Or Have You Ever Used Any Other Forms Of Tobacco Or Nicotine? No Information not available 09/17/2023 Sex: Unknown Functional Status None recorded. Mental Status None recorded. Family History Nothing Reported Notes:mother cva si ster htn brother htn, liver ca Medical History No medical history recorded. Gynecological HistoryNo gynecological history recorded. Obstetrics History GPAL:G 0 P 0 0 0 0 Immunizations Vaccine Type Date Status Note Provider Nam e and Address Organization Details Recorded Time Respiratory syncytial virus (RSV) vaccine, unspecified 4 completed Radha Jerman [facility] 09/19/2023 16:11:12 Tdap 4 completed Radha Jerman [facility] 09/19/2023 16:11:26 Td(adult) unspecified formulation 3 completed Radha [facility] 09/19/2023 16:11:43 Td(adult) unspecified formulation 3 completed Radha Jerman [facility] 09/19/2023 16:11:51 Pneumococcal conjugate PCV 13 6 completed [facility] 09/19/2023 16:12:53 Pneumococcal conjugate PCV20, polysaccharide [id number] conjugate, adjuvant, PF 4 completed Radha Jerman [facility] 09/19/2023 16:13:07 pneumococcal polysaccharide PPV23 1 completed Radha Jerman [facility] 09/19/2023 16:13:22 pneumococcal polysaccharide PPV23 [facility] 16:13:31 influenza, unspecified formulation 2 [facility] 16:13:47 influenza, unspecified formulation 3 completed Radha Jerman [facility] 09/19/2023 16:13:55 MMR 8 completed Radha Jerman [facility] 09/19/2023 16:14:21 SARS-COV-2 (COVID-19) vaccine, UNSPECIFIED 1 completed Radha Jerman [facility] 09/19/2023 16:15:58 SARS-COV-2 (COVID-19) vaccine, UNSPECIFIED 1 completed Radha Jerman [facility] 09/19/2023 16:16:13 SARS-COV-2 (COVID-19) vaccine, UNSPECIFIED 1 [facility] 16:16:27 SARS-COV-2 (COVID-19) vaccine, UNSPECIFIED 2 completed Radha [facility] 09/19/2023 16:17:15 SARS-COV-2 (COVID-19) vaccine, UNSPECIFIED 2 completed [facility] 09/19/2023 16:21:38 zoster, unspecified formulation 5 completed [facility] 09/19/2023 16:23:04 zoster, unspecified formulation 9 completed [facility] 09/19/2023 16:23:18 zoster, unspecified formulation 9 completed [facility] 09/19/2023 16:25:18 Past Encounters Encounter ID Performer Location Encounter Start Date Encounter Closed Date Diagnosis/Indication Diagnosis SNOMED-CT Code Diagnosis ICD10 Code Diagnosis Note [id number] Dori Pena NP [address] [address] 09/17/2023 15:22:09 09/23/2023 14:50:24 Closed flail chest 967506100 S22.5XXD with multiple rib fractures and clavicular fracturewa s evaluated by thoracic surgery and felt non operatable pain management oxycodone 5 mg po q 4hours prnoxycont in 10 mg po ER bidgabapen tin 100 mg po bidwean over next few weeksalbut edward 2 puff q 4-6 hours09/16s ched duoneb qidrobitus sin 10 ml po daily x 10 days coughlidoc geoffrey patch 4 % topically left chest on in am off pmsched tylenol 1000mg po tid IS q 1 hourmonito r labs weekly cbc and bmp for anemia and electrolyt e disturbanc e and infectionm onitor for s/s respirator y distress Ct Chest showed 2nd throught 6th left sided rib fractures, with 2 components each meeting criteria with flail chest. Associated left pleural thickening adjacent to displaced and inwardly depressed third and fourth lateral rib fractures. Bilateral small effusions, left greater than right .Possible 4 mm right upper lobe pulmonary nodule, study limited by resp motion. Optional CT at 12 months may be obtained. If stable no further workup needed. Asthenia 94550385 R53.1 with notable weakness due to injuryPT OT eval and treatsuppo rtive caremonito r Type 1 frakn betes mellitus 47585205 E10.9 tresiba 30 unit sc qhsinsulin 2-14 SSI sc qidhsmonit or BS and adjust as needed Hypertensive disorder 38 949020 I10 not on meds for thisamlodi pine 10 mg po dailylosar zaragoza 100 mg po dailymonit or bp/vitals 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 914615 E06.3 levothyrox ine 112 mcg dailymonit or tsh as needed Gastroesop hageal reflux disease 014908419 K21.9 esomeprazo le 40 mg o daily Obesity 621212871 E66.9 visitor services representative to consultsup portive careportio n controlmon itor weight Mixed anxi ety and depressive disorder 683787949 F41.8 aripiprazo le 20 mg dailyvenla faxine 150 mg po dailyprazo sin 6 mg po qhsmelaton in 3 mg po qhshydroxy zine 10 mg po q 8 hours prn anxietyclo nazepam 0.5 mg po q 8 hours prn anxietycar vedilol 6.25 mg po bidmonitor Rheumatoid arthritis 698 01441 M06.9 enbrel 50 mg sc q 7dayscalci um citrate 400 mg po bidmonitor for reliefsee pain management above with flail chest Irritable bowel syndrome 91963737 K58.9 ? IBSlinzess 290 mcg q ammonitor Deficiency anemias 51784 3007 D53.9 folic acidvit [id number] Coronary arteriosclerosis 73510585 I25.10 hx of MIatorvast atin 20 mg po dailyclopi dogrel 75 mg po q amsee above htn medsmonito r Recurrent falls 80618583 2 R29.6 reports history of falls with health safety specialist at home to help her and balance issuesrepo rts more than 5 falls/year supportive caremonito r [id number] JESSICA HINDS NP [address] [id number] [place] [address] 09/18/2023 13:29:08 09/23/2023 15:13:15 Closed flail chest [id number] S22.5XXD with multiple rib fractures and clavicular fracturewa s evaluated by thoracic surgery and felt non operable PT OT eval and tx Continue pain management :Sched. APAP 1 gm tid, d/c prnoxycodo ne 5 mg po q 4hours prn - encourage useoxycont in 10 mg po ER bidgabapen tin 100 mg po bidlidocai ne patch 4 % topically left chest on in am off pmadjust as needed. Currently with N/V, unsure if related to opioids. Zofran added, will also add miralax qd to keep bowels moving. May need to trial another pain med if N/V continues Maintain resp. function:a lbuterol 2 puff q 4-6 hourssched duoneb qidrobitus sin 10 ml po daily x 10 days coughIS q 1 hour monitor labs weekly cbc and bmp for anemia and electrolyt e disturbanc e and infectionm onitor for s/s respirator y distress Ct Chest showed 2nd throught 6th left sided rib fractures, with 2 components each meeting criteria with flail chest. Associated left pleural thickening adjacent to displaced and inwardly depressed third and fourth lateral rib fractures. Bilateral small effusions, left greater than right .Possible 4 mm right upper lobe pulmonary nodule, study limited by resp motion. Optional CT at 12 months may be obtained. If stable no further workup needed. Asthenia 58623742 R53.1 with notable weakness due to injuryPT OT eval and treatsuppo rtive caremonito r Type 1 frank betes mellitus 22483941 E10.9 A1C 8.8%Contin eu:tresiba 30 unit sc qhsinsulin 2-14 SSI sc qidmonitor BS and adjust as needed Hypertensive disorder 38 628361 I10 amlodipine 10 mg po dailylosar zaragoza 100 mg po dailycoreg 6.25 mg bidmonitor bp/vitals 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 786688 E06.3 levothyrox ine 112 mcg dailymonit or tsh as needed Gastroesop hageal reflux disease 591013690 K21.9 esomeprazo le 40 mg o daily Deficiency anemias 23794 3007 D53.9 folic acidvit [id number] Obesity 910511651 E66.9 visitor services representative [facility] controlmon itor weight Mixed anxi ety and depressive disorder 017706251 F41.8 aripiprazo le 20 mg dailyvenla faxine 150 mg po dailyprazo sin 6 mg po qhsmelaton in 3 mg po qhshydroxy zine 10 mg po q 8 hours prn anxietyclo nazepam 0.5 mg po q 8 hours prn anxietymon itor Rheumatoid arthritis 698 71871 M06.9 enbrel 50 mg sc q 7dayscalci um citrate 400 mg po bidmonitor for reliefsee pain management above with flail chest Irritable bowel syndrome 41746950 K58.9 ? IBSlinzess 290 mcg q ammonitor Coronary arteriosclerosis 43813969 I25.10 hx of MIatorvast atin 20 mg po dailyclopi dogrel 75 mg po q amsee above htn medsmonito r Recurrent falls 89834996 2 R29.6 reports history of falls with health safety specialist at home to help her and balance issuesrepo rts more than 5 falls/year supportive caremonito r [id number] Dori Pena, AAKASH [address] [address] 09/22/2023 14:27:57 09/29/2023 19:16:34 Closed flail chest 211965630 S22.5XXD with multiple rib fractures and clavicular fracturewa s evaluated by thoracic surgery and felt non operable PT OT eval and tx Continue:A PAP 1 gm tid nte 3gram/osmany xycodone 5 mg po q 4hours prnoxycont in 10 mg po ER bid (still with break through pain)gabap entin 100 mg po bidlidocai ne patch 4 % topically left chest on in am off pmadjust as needed, goal to wean off oxycontin and oxycodone Maintain resp. function:a lbuterol 2 puff q 4-6 hourssched duoneb qidrobitus sin 10 ml po daily x 10 days coughIS q 1 hour monitor labs weekly cbc and bmp for anemia and electrolyt e disturbanc e and infectionm onitor for s/s respirator y distress Ct Chest showed 2nd throught 6th left sided rib fractures, with 2 components each meeting criteria with flail chest. Associated left pleural thickening adjacent to displaced and inwardly depressed third and fourth lateral rib fractures. Bilateral small effusions, left greater than right .Possible 4 mm right upper lobe pulmonary nodule, study limited by resp motion. Optional CT at 12 months may be obtained. If stable no further workup needed. Asthenia 20009713 R53.1 with notable weakness due to injuryPT OT eval and treatsuppo rtive caremonito r Type 1 frank betes mellitus 92807652 E10.9 BS 81-252 ilbrduB7K 8.8%contin ue:tresiba 30 unit sc qhsinsulin 2-14 SSI sc qidmonitor BS and adjust as needed Hypertensive disorder 38 793088 I10 improving lately, boderline highcontam lodipine 10 mg po dailylosar zaragoza 100 mg po dailycoreg 6.25 mg bidmonitor bp/vitals 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 560220 E06.3 contlevoth yroxine 112 mcg dailymonit or tsh as needed Gastroesop hageal reflux disease 451779498 K21.9 esomeprazo le 40 mg o daily Deficiency anemias 85528 3007 D53.9 folic acidvit l84nzqwvuj Obesity 574351611 E66.9 visitor services representative to consultsup [facility] n controlmon itor weight Mixed anxi ety and depressive disorder 076618640 F41.8 contaripip razole 20 mg dailyvenla faxine 150 mg po dailyprazo sin 6 mg po qhsmelaton in 3 mg po qhshydroxy zine 10 mg po q 8 hours prn anxietyclo nazepam 0.5 mg po q 8 hours prn anxietymon itor Rheumatoid arthritis 698 66092 M06.9 enbrel 50 mg sc q 7dayscalci um citrate 400 mg po bidmonitor for reliefsee pain management above with flail chest Irritable bowel syndrome 91088306 K58.9 ? IBSlinzess 290 mcg q ammonitor Coronary arteriosclerosis 82769250 I25.10 hx of MIatorvast atin 20 mg po dailyclopi dogrel 75 mg po q amsee above htn medsmonito r Recurrent falls 40189490 2 R29.6 reports history of falls with health safety specialist at home to help her and balance issuesrepo rts more than 5 falls/year supportive caremonito r Acute cystitis 39768660 N30.00 reports dysuria and occassiona l incontinen ce latelyurin e culture returned showing > 100,000 klebsiella pneumo ssp and started on ceftriaxon e 1gram IM and cefpodoxim e 200 mg po bid x 7 days with probiotic by on provider over the weekend.mo nitor [id number] Jonel Alamo MD [address] [address] 09/23/2023 11:01:43 09/29/2023 19:25:59 Closed fracture of multiple left ribs 7927844610 5941002 S22.42XG see HPIleft rib fxs 2-6 with concern for flail chest , with clavicular fxeval by surgery with no interventi on indicatedm onitor respirator y statusutil ize incentive spirometer monitor for pain controlupd ate surgery with concerns Asthenia 43482981 R53.1 PT OT eval and treatmonit or need for increased support in community Type 1 frank betes mellitus 32519445 E10.9 tresiba 30 units qdSS insulinmon itor glucose and need to titrate Hypertensive disorder 38 905829 I10 norvasc 10 mg qdcoreg 6.25 mg bidlosarta n 100 mg qdcurrentl y elevatedmo nitor need for increased control 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 196029 E06.3 hx of added to PMHmaintai priscilla onsynthroi d 112 mcg qdmonitor tsh prn Gastroesop hageal reflux disease 360908485 K21.9 nexium 40 mg qd continuedm onitor for effect Obesity 344168456 E66.09 dietary eval in patient with baseline DM Mixed anxi ety and depressive disorder 036217074 F41.8 carrying dx requiring multiple medication swill continue out patient medication s includinga bility and ativanmoni tor moodpsych eval prn Rheumatoid arthritis 698 82527 M06.9 remains onenbrel 50 mg q friday Irritable bowel syndrome 16986168 K58.9 ? IBSlinzess 290 mcg q ammonitor Coronary arteriosclerosis 61123339 I25.10 hx of MIatorvast atin 20 mg po dailyclopi dogrel 75 mg po q amsee above htn medsmonito r Recurrent falls 79278490 2 R29.6 reports history of falls with health safety specialist at home to help her and balance issuesrepo rts more than 5 falls/year supportive caremonito r Solitary n odule of lung 319126226 R91.1 question right 4 mm upper lobe nodulecons ider repeat scan in 6-12 months Primary insomnia 3681983 F51.01 continue melatoninm onitor need to titrate Abnormal weight loss 267 725374 R63.4 weight dropped > 12 lbs in a few days from admitappea rs to be error in initial intake weightwill monitor Acute cystitis 68841494 N30.00 now on cefpodoxim e to complete coursemoni tor for recurrent disease [id number] Dori Pena NP [facility] [address] [address] 09/24/2023 09:21:20 09/29/2023 19:39:42 Closed fracture of multiple left ribs 5669972009 3288576 S22.42XG with multiple rib fractures and clavicular fracturele ft rib fxs 2-6 with concern for flail chest , with clavicular fxeval'd by surgery with no interventi on indicated for closed flail chestmonit or respirator y statusutil ize incentive spirometer monitor for pain controlupd ate surgery with concerns prnPT OT eval and txContinue pain management :Sched. APAP 1 gm tid, no prnoxycodo ne 5 mg po q 4hours prn - encourage use prn6/5 decrease oxycontin 10 mg po ER bid to daily x 7 days then dcgabapent in 100 mg po bidlidocai ne patch 4 % topically left chest on in am off pmadjust as needed. Asthenia 85734083 R53.1 PT OT eval and treatmonit or need for increased support in community Type 1 frank betes mellitus 93296165 E10.9 BS controlled conttresib a 30 units qdSS insulinmon itor glucose and need to titrate Hypertensive disorder 38 182444 I10 stable on below regimennor vasc 10 mg qdcoreg 6.25 mg bidlosarta n 100 mg qdcurrentl y elevatedmo nitor need for increased control 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 196463 E06.3 hx of added to PMHmaintai priscilla onsynthroi d 112 mcg qdmonitor tsh prn Gastroesop hageal reflux disease 887004164 K21.9 nexium 40 mg qd continuedm onitor for effect Obesity 582112404 E66.09 dietary eval in patient with baseline DM Rheumatoid arthritis 698 46954 M06.9 remains onenbrel 50 mg q friday Irritable bowel syndrome 89864811 K58.9 ? IBSlinzess 290 mcg q ammonitor Coronary arteriosclerosis 65875702 I25.10 hx of MIatorvast atin 20 mg po dailyclopi dogrel 75 mg po q amsee above htn medsmonito r Recurrent falls 19770889 2 R29.6 reports history of falls with health safety specialist at home to help her and balance issuesrepo rts more than 5 falls/year supportive caremonito r Primary insomnia 0932505 F51.01 continueme latoninmon itor need to titrate Abnormal weight loss 267 213934 R63.4 weight dropped > 12 lbs in a few days from admitappea rs to be error in initial intake weight6 reweigh pt todaywill monitor Acute cystitis 93301155 N30.00 now on cefpodoxim e to complete courseaysm ptomaticmo nitor for recurrent disease [id number] Dori Pena NP [address] [address] 09/29/2023 10:39:23 10/03/2023 11:24:38 Closed fracture of multiple left ribs [id number] 6866297 S22.42XG with multiple rib fractures and clavicular fracturele ft rib fxs 2-6 with concern for flail chest , with clavicular fxeval'd by surgery with no interventi on indicated for closed flail chestmonit or respirator y statusutil ize incentive spirometer monitor for pain controlupd ate surgery with concerns prnPT OT eval and txContinue pain management :Sched. APAP 1 gm tid, no prnoxycodo ne 5 mg po q 4hours prnoxycont in to finish on 09/29gabape ntin 100 mg po bidlidocai ne patch 4 % topically left chest on in am off pm6/10 add muscle rub cream bid to left shoulderad just as needed. Asthenia 92590547 R53.1 PT OT eval and treatmonit or need for increased support in community Type 1 frank betes mellitus 68294462 E10.9 BS controlled conttresib a 30 units qdSS insulinmon itor glucose and need to titrate Hypertensive disorder 38 263557 I10 stable on below regimen with slightly high bp likley related to pain, monitorcon tnorvasc 10 mg qdcoreg 6.25 mg bidlosarta n 100 mg qdcurrentl y elevatedmo nitor need for increased control 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 445058 E06.3 hx of added to PMHmaintai priscilla onsynthroi d 112 mcg qdmonitor tsh prn Gastroesop hageal reflux disease 737681313 K21.9 contnexium 40 mg qdmonitor for effect Obesity 589461458 E66.09 dietary evalbaseli ne DMweight today please Rheumatoid arthritis 698 95316 M06.9 remains onenbrel 50 mg q friday Irritable bowel syndrome 20857661 K58.9 ? IBSlinzess 290 mcg q ammonitor Coronary arteriosclerosis 06470425 I25.10 hx of MIatorvast atin 20 mg po dailyclopi dogrel 75 mg po q amsee above htn medsmonito r Recurrent falls 08772304 2 R29.6 reports history of falls with health safety specialist at home to help her and balance issuesrepo rts more than 5 falls/year supportive caremonito r Primary insomnia 2951659 F51.01 continueme latoninmon itor need to titrate Abnormal weight loss 267 336575 R63.4 weight dropped > 12 lbs in a few days from admitappea rs to be error in initial intake weight6/10 reweigh pt todaywill monitor Acute cystitis 74458629 N30.00 resolved cefpodoxim e to complete courseaysm ptomaticmo nitor for recurrent disease Mixed anxi ety and depressive disorder 194862808 F41.8 contaripip razole 20 mg dailyvenla faxine 150 mg po dailyprazo sin 6 mg po qhsmelaton in 3 mg po qhshydroxy zine 10 mg po q 8 hours prn anxiety6/1 0 renew clonazepam 0.5 mg po q 8 hours prn anxietymon itor [id number] D[facility] [address] [place] [address] 10/02/2023 13:28:32 10/07/2023 10:08:18 Hypertensive disorder 53871972 I10 stable on below regimen as it comes down to 120s systolic post medication contnorvas c 10 mg qdcoreg 6.25 mg bidlosarta n 100 mg qdmonitor need for increased control Closed fra cture of multiple left ribs 5131563504 6816097 S22.42XG with left rib fxs 2-6 with concern for flail chest , with clavicular fxeval'd by surgery with no interventi on indicated for closed flail chestConti nue pain management :Sched. APAP 1 gm tid, no prnoxycodo ne 5 mg po q 4hours prngabapen tin 200 mg po bidlidocai ne patch 4 % topically left chest on in am off pmmuscle rub cream bid to left shouldermo nitor respirator y statusutil ize incentive spirometer update surgery with concerns prnPT OT eval and txadjust as needed. Asthenia 74101930 R53.1 PT OT eval and treatmonit or need for increased support in community Type 1 frank betes mellitus 94334743 E10.9 BS controlled glucernaco nttresiba 30 units qdSS insulinmon itor glucose and need to titrate Gastroesop hageal reflux disease 043405257 K21.9 contnexium 40 mg qdmonitor for effect Rheumatoid arthritis 698 89586 M06.9 remains onenbrel 50 mg q friday Irritable bowel syndrome 12237045 K58.9 ? IBSlinzess 290 mcg q ammonitor Coronary arteriosclerosis 27332571 I25.10 hx of MIcoreg 6.25 mg po bidatorvas tatin 20 mg po dailyclopi dogrel 75 mg po q amsee above htn medsmonito r Recurrent falls 89027999 2 R29.6 reports history of falls with health safety specialist at home to help her and balance issuesrepo rts more than 5 falls/year supportive care and therapy here for balance, strengthen ing, gait, mobility, endurancem onitor Abnormal weight loss 267 645027 R63.4 weight dropped > 12 lbs in a few days from admitappea rs to be error in initial intake weight09/28 reweigh pt today10/01 reweight pt today, no weight since 09/21will monitor Mixed anxi ety and depressive disorder 748337132 F41.8 contaripip razole 20 mg dailyvenla faxine 150 mg po dailyprazo sin 6 mg po qhsmelaton in 3 mg po qhshydroxy zine 10 mg po q 8 hours prn anxiety09/19 0 renew clonazepam 0.5 mg po q 8 hours prn anxiety x 14 days10/01 cont as abovemonit or [id number] Dori Pena NP [facility] [address] [facility] [place] [place] [address] 10/06/2023 12:02:36 10/09/2023 09:34:42 Closed fracture of multiple left ribs [id number] 1063147 S22.42XG with left rib fxs 2-6 with concern for flail chest , with clavicular fxeval'd by surgery with no interventi on indicated for closed flail chestConti nue pain management :Sched. APAP 1 gm tid, no prnoxycodo ne 5 mg po q 4hours prngabapen tin 200 mg po bidlidocai ne patch 4 % topically left chest on in am off pmmuscle rub cream bid to left shouldermo nitor respirator y statusutil ize incentive spirometer update surgery with concerns prnPT OT eval and txadjust as needed. Abnormal weight loss 267 019370 R63.4 weight dropped > 12 lbs in a few days from admitappea rs to be error in initial intake weight10/04 160 lbs which is same as 09/22/23will monitor Hypertensive disorder 38 989499 I10 stable on below regimen as it comes down to 120s systolic post medication contnorvas c 10 mg qdcoreg 6.25 mg bidlosarta n 100 mg qdmonitor need for increased control Asthenia 40690133 R53.1 PT OT eval and treatmonit or need for increased support in community Type 1 frank betes mellitus 72470244 E10.9 pt having syrup and gingerale at bedside with increased BS 300-400s this weekPlan: diet sodas and diet syrupPt educated on plan and choices today and she is not to take glucose tabs without nurse checking BS and knowing as she prefers them at bedside. She denies taking them here at allBS controlled glucernaco nttresiba 30 units qdSS insulinmon itor glucose and need to titrate Rheumatoid arthritis 698 11080 M06.9 remains onenbrel 50 mg q friday Irritable bowel syndrome 72623606 K58.9 with constipati on today, states many days10/05 mon given today, will do supp if no bm by 4 pm10/05 start senna 8.6 mg po daily? IBSlinzess 290 mcg q ammonitor Coronary arteriosclerosis 53994458 I25.10 hx of MIcoreg 6.25 mg po bidatorvas tatin 20 mg po dailyclopi dogrel 75 mg po q amsee above htn medsmonito r Mixed anxi ety and depressive disorder 351604605 F41.8 contaripip razole 20 mg dailyvenla faxine 150 mg po dailyprazo sin 6 mg po qhsmelaton in 3 mg po qhshydroxy zine 10 mg po q 8 hours prn anxiety09/19 0 renew clonazepam 0.5 mg po q 8 hours prn anxiety x 14 days10/01 cont as above10/05 stable today with above planmonito r [id number] Dori Pena NP [address] [address] 10/08/2023 11:40:06 10/15/2023 15:50:32 Type 1 diabetes mellitus 69452826 E10.9 pt having syrup and gingerale at bedside with increased BS 300-400s this week now with diet education BS coming downPlan: diet sodas and diet syrupPt educated on plan and choices today and she is not to take glucose tabs without nurse checking BS and knowing as she prefers them at bedside. She denies taking them here at allBS controlled glucernaco nttresiba 30 units qdSS insulinmon itor glucose and need to titrate Irritable bowel syndrome 59445971 K58.9 with constipati on resolved with mom on 7 mon given today10/05 start senna 8.6 mg po daily? IBSlinzess 290 mcg q am10/07 having bm regularly nowmonitor Closed fra cture of multiple left ribs 5578455947 9547808 S22.42XG with left rib fxs 2-6 with concern for flail chest , with clavicular fxeval'd by surgery with no interventi on indicated for closed flail chestConti nue pain management :Sched. APAP 1 gm tid, no prnoxycodo ne 5 mg po q 4hours prngabapen tin 200 mg po bidlidocai ne patch 4 % topically left chest on in am off pmmuscle rub cream bid to left shouldermo nitor respirator y statusutil ize incentive spirometer update surgery with concerns prnPT OT eval and txadjust as needed. Abnormal weight loss 267 317526 R63.4 weight dropped > 12 lbs in a few days from admitappea rs to be error in initial intake weight10/04 160 lbs which is same as 09/22/23, ? incorrect admit weight but [facility] Hypertensive disorder 38 266900 I10 stable on below regimen as it comes down to 120s systolic post medication contnorvas c 10 mg qdcoreg 6.25 mg bidlosarta n 100 mg qdmonitor need for increased control Asthenia 30236173 R53.1 PT OT eval and treatmonit or need for increased support in community Rheumatoid arthritis 698 95680 M06.9 remains onenbrel 50 mg q friday Coronary arteriosclerosis 92738776 I25.10 hx of MIcoreg 6.25 mg po bidatorvas tatin 20 mg po dailyclopi dogrel 75 mg po q amsee above htn medsmonito r Mixed anxi ety and depressive disorder 128805938 F41.8 contaripip razole 20 mg dailyvenla faxine 150 mg po dailyprazo sin 6 mg po qhsmelaton in 3 mg po qhshydroxy zine 10 mg po q 8 hours prn anxiety09/19 0 renew clonazepam 0.5 mg po q 8 hours prn anxiety x 14 days10/01 cont as above10/05 stable today with above plan10/07 stable today with above planmonito r Hyperkalemia 73056180 E8 7.5 k of 5.7 on give kayexalate 15 gm today10/08 bmp in ammonitor for additional e lyte abbormalit ies [id number] Dori Pena NP [place] [address] [place] [address] 10/09/2023 13:08:06 10/15/2023 16:27:22 Closed fracture of multiple left ribs 8487067009 3011302 S22.42XG resolving with left rib fxs 2-6 with concern for flail chest , with clavicular fxeval'd by surgery in hosp with no interventi on indicated for closed flail chestConti nue pain management outpt:Sche d. APAP 1 gm tid, no prn - may titrate at home prnoxycodo ne 5 mg po q 4hours prngabapen tin 200 mg po bidlidocai ne patch 4 % topically left chest on in am off pmmuscle rub cream bid to left shouldermo nitor respirator y statusutil ize incentive spirometer throughout dayPT OT eval and tx outpt prnadjust as needed outpt with pcp Hyperkalemia 88658298 E8 7.5 k of 5.7 on give kayexalate 15 gm on 10/07monito r for additional e lyte abnormalit ies outpt with pcp Type 1 frank betes mellitus 44576919 E10.9 BS slightly high while at rehab with eating sugary foods/drin ksPlan: diet sodas and diet syrup and less sugary choicescon tglucernat resiba 30 units qdSS insulin with meals as per home schedmonit or glucose and need to titrate outpt with pcp outpt Irritable bowel syndrome 84925348 K58.9 with constipati on resolvedse nna 8.6 mg po daily (started at rehab)? IBSlinzess 290 mcg q ammonitor with pcp outpt Abnormal weight loss 267 765213 R63.4 weight dropped > 12 lbs in a few days from admitappea rs to be error in initial intake weight10/04 160 lbs which is same as 09/22/23, ? incorrect admit weight but seems stable nowmonitor oupt with pcp Hypertensive disorder 38 154254 I10 stable on below regimen as it comes down to 120s systolic post medication contnorvas c 10 mg qdcoreg 6.25 mg bidlosarta n 100 mg qdmonitor need for increased control outpt with pcp Asthenia 34979699 R53.1 PT OT eval and treat outpt prnmonitor need for increased support in community with pcp Rheumatoid arthritis 698 43435 M06.9 remains onenbrel 50 mg q fridaymoni tor outpt with pcp Coronary arteriosclerosis 66869515 I25.10 hx of MIcoreg 6.25 mg po bidatorvas tatin 20 mg po dailyclopi dogrel 75 mg po q amsee above htn medsmonito r outpt wtih pcp Mixed anxi ety and depressive disorder 655050518 F41.8 contaripip razole 20 mg dailyvenla faxine 150 mg po dailyprazo sin 6 mg po qhsmelaton in 3 mg po qhshydroxy zine 10 mg po q 8 hours prn anxietyclo nazepam 0.5 mg po q 8 hours prn anxietymon itor outpt with pcp Gastroesop hageal reflux disease 552196005 K21.9 contnexium 40 mg qdmonitor for effect outpt with pcp Recurrent falls 54641651 2 R29.6 reports history of falls with health safety specialist at home to help her and balance issuesrepo rts more than 5 falls/year supportive care and therapy here for balance, strengthen ing, gait, mobility, endurance outpt rpnmonitor outpt with pcp 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 514780 E06.3 hx of added to PMHmaintai priscilla onsynthroi d 112 mcg qdmonitor tsh prn with pcp Obesity 659181821 E66.09 dietary evalbaseli ne DMweight to be monitored with pcp outpt Primary insomnia 4838567 F51.01 continueme latoninmon itor need to titrate outpt Acute cystitis 92471883 N30.00 resolved cefpodoxim e to complete courseaysm ptomaticmo nitor for recurrent disease outpt with pcp Health Concerns Section Related Observation LastModified by Organization Detai ls LastModified Time None Recorded Concern Status LastModified by Organization Details LastModified Time None Recorded Advance Directives Directive N: Payers Encounter Date Sequence Insurance Name Policy Number Policy Patten Covered Member ID Patten Member ID Guarantor Name 09/29/2023 1 [facility] - DOS ON OR AFTER 2022 - MEDIC[place]V ANTAGE - PPO) Brandie Tanga [id number] Brandie Tanga 10/02/2023 1 [facility] - DOS ON OR AFTER 2022 - [place]V [place] - [place]PO) Brandie Tanga [id number] Brandie Tanga 10/06/2023 1 [facility] - DOS ON OR AFTER 2022 - [place]V ANT[place] - [place]PO) Brandie Tanga [id number] Brandie Tanga 10/08/2023 1 [facility] - DOS ON OR AFTER 2022 - [place]V ANT[place] - [place]PO) Brandie Luevano [id number] Brandie Tanga 10/09/2023 1 [facility] - DOS ON OR AFTER 2022 - [place]V ANTAGE - PPO) Brandie Luevano [id number] Brandie Luevano Notes Date Note Type Note Provider Name and Address Organization Details Recorded Time 09/29/2023 text/html Pt is seen for a n acute rounding visit. Pt is a 73 yo female admitted from hospital after prior fall out of bed on 08/26 with left sided chest pain. Noted clavicular and rib fx left 2-6. Eval by surgery with no surgical intervention recommended after finding of flail chest except pain medication felt rehab appropriate on discharge. On exam, Brandie is up and in activity room this am and participating with therapyHer pain and discomfort from rib fx remains and oxycontin will off and will continue with oxycodone and and adjuncts. Will add muscle rub cream to left shoulder area bid. No nausea, vomiting or other concerns today.Was treated for UTI and no urinary symptoms noted. Her bp slightly high at 150/77 this am, however just received her medications and requests a clonazepam for anxiety.Her BS are labile 63-285 likely due to diet, on glucerna. Will continue to monitor.Overall, progressing with therapy. Will renew order for clonazepam prn home dose and oxycodone script today. MOLST: 09/17/23 full codeBIMS: MORSE: high fall risk, uses a cane usually Dori Pena NP [address] [facility], [address], [place], [address], [employer] 09/29/2023 11:09:33 10/02/2023 text/html Pt is seen for a n acute rounding visit. note: Brandie is a 73 yo female admitted from hospital after prior fall out of bed on 08/26 with left sided chest pain with clavicular and rib fx left 2-6. She was eval by surgery with no surgical intervention recommended after finding of flail chest except pain medication felt rehab appropriate on discharge. Since here Brandie is working with rehab and making gains. She had been struggling with pain management. Her oxycontin has been discontinued this week and started on muscle rub cream and oxycodone prn with improved relief. On exam, she is sitting up in bed with her [employer] visiting. She has her sling in place and remains with good cms to distal fingers. She reports the muscle rub cream is helping to the shoulder and pain is improving. She was treated for UTI and no urinary symptoms noted and now seems more alert. Bp runs slightly high at 148/74, however seems to decrease with her bp meds to 120s. Her BS are labile 74-232 likely due to diet, on glucerna. Will continue to monitor. MOLST: 09/17/23 full codeBIMS: MORSE: high fall risk, uses a cane usually Dori Pena NP [address] [facility], [address], [place], [address], [employer] 10/02/2023 13:48:50 10/06/2023 text/html Pt is seen for a n acute rounding visit. Brandie is working here at [employer] and is feeling good and more mobile lately with left sling in place. She continues with therapy and making gains. She was treated for a UTI when she first came to [facility] and denies any urinary symptoms. Nursing noted her blood sugars are high recently in the 300-400s, however one BS of 71 yesterday. She remains on a sliding scale and tresiba daily. On exam, Brandie is up and slowly walking with help today. She is concerned she has not had a bowel movement in 6 days. She states the nurse gave her mom this am. Will add senna today daily. note; She is a 73 yo female admitted from hospital after prior fall out of bed on 08/26 with left sided chest pain with clavicular and rib fx left 2-6. She was eval by surgery with no surgical intervention recommended after finding of flail chest except pain medication felt rehab appropriate on discharge. MOLST: 09/17/23 full codeBIMS: MORSE: high fall risk, uses a cane usually Dori Pena NP [address] [facility], [address], [place], [address], [employer] 10/06/2023 12:26:22 10/08/2023 text/html Pt is seen for a n acute rounding visit. She is a 73 yo female admitted from hospital after prior fall out of bed on 08/26 with left sided chest pain with clavicular and rib fx left 2-6. She was eval by surgery with no surgical intervention recommended after finding of flail chest except pain medication felt rehab appropriate on discharge. While here she has been here she is doing well and making gains with therapy. She remains in a sling for comfort. While at [place]:She was treated for a UTI when she first came to [facility] and denies any urinary symptoms. Nursing noted her blood sugars are high recently in the 300-400s, however one BS of 71 yesterday. She remains on a sliding scale and tresiba daily now BScoming down with better diet choices. 10/06/23 her potassium was 5.7 on 10/05. Will give kayexalate today and recheck labs in am. On exam, she is onboard with plan to go home later this week. She states she is better after a bm on friday using milk of magnesia. She denies other concerns. MOLST: 09/17/23 full codeBIMS: MORSE: high fall risk, uses a cane usually Dori Pena NP [address] [facility], [address], [place], [address], [employer] [facility] 10/08/2023 12:05:52 10/09/2023 text/html Pt is seen for a discharge visit. She is a 73 yo female admitted from hospital after prior fall out of bed on 08/26 with left sided chest pain with clavicular and rib fx left 2-6. She was eval by surgery with no surgical intervention recommended after finding of flail chest except pain medication felt rehab appropriate on discharge. While here she has been here she is doing well and making gains with therapy. She remains in a sling for comfort. While at [place]:She was treated for a UTI when she first came to [facility] and denies any urinary symptoms. Nursing noted her blood sugars are decreasing to 83-296 lately with better diet control. She should follow up with pcp outpt for control. On 10/05 she was given kayexalate for a potassium level of 5.7. She has been constipated and required milk of magnesia with good results and started on senna daily. On exam, Brandie is lying in bed in NAD doing well. She states she is ready to go home. She has done well with therapy and feels her pain is managed on the oxycodone approx once a day in the last few days. MOLST: 09/17/23 full codeBIMS: MORSE: high fall risk, uses a cane usually Dori Pena NP [address] [facility], [address], [place], [address], [facility] 10/09/2023 16:50:56 OBGyn Episode No OBEpisode recorded.
--- OUTSIDE RECORDS SUMMARY | 2024-04-26 11:47 | XMS_ITS | Patient Health Record ---
Author Organization [facility] Address [address] [place] [address] Care Team Providers Care Cnc Service Technician Name Role Phone Adolph Terry MD, Pascual Primary Care Provide r Unavailable Cortes Castillo Jr Unavailable Zeb Tang Unavailable Unavailable ALLERGIES Allergen (clinical drug ingredient) Drug/Non Drug Allergy documented on EMR Reaction Allergy Type Onset Date Status tramadol Tramadol HCl Unknown Drug Allergy Acti ve naproxen Naproxen Unknown Drug Allergy Active lorazepam Lorazepam Unknown Drug Allergy Active celecoxib Celebrex Unknown Drug Allergy Active zolpidem Ambien Unknown Drug Allergy Active REASON FOR REFERRAL No Information MEDICATIONS Medication SIG (Take, Route, Frequency, Duration) Notes Start Date End Date Status Vitamin D3 Active Vitamin A Active Venlafaxine HCl ER A ctive Atorvastatin Calcium 10 MG 1 tablet Orally Once a day Active Potassium Chloride 8 MEQ Active Furosemide 20 MG 1 tablet Orally Once a day Active Plavix 75 MG 1 tablet Orally Once a day Active Calcium Citrate Acti ve Acetaminophen-Codeine #3 300-30 MG 1 tablet as needed Orally every 6 hrs Active Dulcolax Active oxyCODONE HCl 5 MG/5ML 5 mL as needed Orally every 6 hrs Active Carafate 1 GM 1 tablet on an empty stomach Orally Twice a day Active clonazePAM 1 MG 1 tablet Orally Once a day 11/05/2017 Active Tirosint 88 MCG Orally Acti ve amLODIPine Besylate 10 MG 1 tablet Orally Once a day Active Effexor XR 150 MG 1 capsule with food Orally Once a day & 150 mg together Active Multi Vitamin/Minerals Active Vitamin B1 Active IMMUNIZATIONS Vaccine Route Administration Date Status Comme nts Influenza Unknown 12/24/2017 Administered Influenza Unknown 02/02/2020 Administered Influenza Unknown 02/19/2021 Administered Influenza Unknown 03/12/2022 Administered Influenza Unknown 03/11/2023 Administered SOCIAL HISTORY Tobacco Use: Social History Observation Description Date Details (start date - stop date) Never Smoker NA - NA Sex Assigned At : Social History Observation Description Sex Assigned At Unknown Tobacco Use/Smoking Question Answer Notes Patient is a nonsmoker Alcohol Screen Question Answer Notes Did you have a drink containing alcohol in the p ast year? No Points 0 Interpretation Negative PROBLEMS Problem Type ICD Code Onset Dates Problem Status W/U Status Risk SNOMED Code Notes Problem Colon cancer screening (Z12.11) Active confirmed 401825364 Problem Epigastric pain (R10.13) Active confirmed 14206526 Problem Iron deficiency anemia (D50.9) Active confirmed Iron deficiency anemia (58127593) Problem Gastroesophageal reflux disease without esophagitis (K21.9) Active confirmed 787507257 Problem Nausea and vomiting, intractability of vomiting not specified, unspecified vomiting type (R11.2) Active confirmed 35770036 VITAL SIGNS Temperature 97.9 degrees Fahrenheit 11/24/2023 Blood pressure diastolic 00 mm Hg 11/24/2023 Height 59 in 11/24/2023 Blood pressure systolic 000 mm Hg 11/24/2023 Weight 155 lb 4 oz lbs 11/24/2023 BMI 31.35 kg/m2 11/24/2023 Encounters Encounter Location Date Provider Diagnosis [facility] [address] [place] [address] 09/03/2023 Cortes Castillo Jr [facility] [address] [place] [address] 11/24/2023 Cortes Castillo Jr Gastroesophageal reflux disease without esophagitis K21.9 ; Iron deficiency anemia D50.9 and Colon cancer screening Z12.11 [facility] [address] [place] [phone] 08/19/2023 Cortes Castillo Jr [facility] [address] [place] [address] 03/01/2024 Cortes Castillo Jr [facility] [address] [place] [phone] 11/24/2023 Cortes Castillo Jr ASSESSMENTS Encounter Date Diagnosis Assessment Notes Treatment Notes Treatment Clinical Notes 11/24/2023 Iron deficiency anemia (ICD-10 - D50.9) 11/24/2023 Gastroesophageal reflux disease without esophagitis (ICD-10 - K21.9) Gastroesophageal reflux disease material was printed 11/24/2023 Colon cancer screening (ICD-10 - Z12.11) PLAN OF TREATMENT Pending Test Test Name Order Date XR GI SERIES 05/01/2020 Future Test Test Name Order Date COLONOSCOPY 11/05/2017 Next Appt Details Provider Name:Cortes Guido wilburn Jr, 11/24/2024 09:20:00 AM, [address] [place] [address], [address], [place], [address], Insurance Providers Payer Name Payer Address Payer Phone Subscriber Number Group Number Insured Name Patient Relationship to Insured Coverage Start Date Coverage End Date [facility] [address] Attn Claims MARK Littlejohn [id number] ROSANNE WILLIS Self - patient is the insured MEDICAL (GENERAL) HISTORY Medical History History ICD Code colonoscopy, 03/20/18, normal, ten-year followup recommended Hemoccult positive stools Iron deficiency anemia B12 deficiency Constipation Hypothyroidism Hypertension Reflux Diabetes mellitus type 2 elevated BMI anxiety/depression Arthritis restless leg syndrome hyperlipidemia atherosclerotic cardiovascular disease ( ASCVD) autoimmune thyroiditis palpitations tremors anemia asthma Rib and clavicle fractures after traumat ic fall 07/12 Surgical History Surgery Date(Month/Year) Caesaren section Tubal ligation Appendectomy lap band insertion, subseque nt removal 12/05, laparoscopic Darren-en-Y gastric bypass cataract-lens implants-both eyes cholecystectomy 2020 Hospitalization History Reason Date(Month/Year) asthma ribs, clavicle hospital stay before also
--- OUTSIDE RECORDS SUMMARY | 2024-04-26 11:47 | XMS_ITS | Data Portability ---
Author Organization [employer] Address [address] [place] [address] Care Team Providers Care Artillery Meteorological Man Name Role Phone [facility] Referring Provider Assessment Encounter Date Assessment Date Assessment LastModified by Organization Details LastModified Time 04/11/2023 04/11/2023 I provided real -time medical direction via phone for this encounter, and was available for additional phone based assistance as needed. I have reviewed and agree with the Assessment and Plan as documented by the Quality Manager. Patient given the opportunity to ask questions. Advised to call for another visit over the weekend if not improving in 2 to 3 days however if develops CP/severe SOB/turning blue/uncontrolle d n/v/d or black/bloody emesis or stool/ AMS/ syncope/ hi fever unresponsive to APAP to call 911- verbalized understanding of instructions [email or web address] Not available 04/12/2023 10:53:05 Plan of Treatment Reminders Order Date Submit Date Provider Last Modified By Organization Details Last Modified Time Details Appointments None record ed. Lab None record ed. Referral None record ed. Procedures None record ed. Surgeries None record ed. Imaging None record ed. Medication Orders None record ed. Patient TargetsNo targets recorded. Patient InstructionsNo instructions recorded. Reason for Referral None Reported. Medical Equipment None Reported. Allergies Allergen ID Allergen Name Allergen Category Reaction Reaction Severity Criticality Documentation Date Start Date Code Code System Note Provider Name and Address Organization Details Recorded Time 4125 lorazepam medicatio n Not available Not available Not available 04/11/2023 6470 RxNorm Not Available [facility] - [facility] 4 03:38:00 4126 Ambien medicatio n Not available Not available Not available 04/11/2023 05055 5 RxNorm Anitha Camacho MD [address] [facility],[address], [place], [address] [facility] [employer] 3 14:49:47 4127 Celebrex medicatio n Not available Not available Not available 04/11/2023 31870 7 RxNoalex Camacho MD [address] [facility],[address], [place], [address], [employer] 14:49:57 4128 tramadol medicatio n Not available Not available Not available 04/11/2023 21716 RxGeovanny Camacho MD [address] [facility],[address], [place], [address], [employer] 14:50:04 Medications Name Sig Start Date Stop Date Status Note LastModified by Organization Details LastModified Time medbox status USE DIRECTED active Not Available Not Available No t Available losartan 50 mg tablet TAKE 1 TABLET BY MOUTH EVERY MORNING active Not Available Not Available No t Available carvedilol 6.25 mg tablet TAKE 1 TABLET BY MOUTH TWICE DAILY IN THE MORNING AND AT BEDTIME active Not Available Not Available No t Available doxycycline hyclate 100 mg capsule TAKE 1 CAPSULE BY MOUTH TWICE DAILY FOR 10 DAYS active Not Available Not Available No t Available atorvastatin 20 mg tablet TAKE 1 TABLET BY MOUTH EVERY MORNING active Not Available Not Available No t Available simethicone 180 mg capsule TAKE 1 CAPSULE BY MOUTH FOUR TIMES DAILY AFTER MEALS active Not Available Not Available Not Available sucralfate 100 mg/mL oral suspension TAKE 10 ML BY MOUTH TWICE DAILY active Not Available Not Available Not Available meloxicam 15 mg tablet TAKE 1 TABLET BY MOUTH ONCE DAILY active Not Available Not Available No t Available sucralfate 1 gram tablet TAKE 1 TABLET BY MOUTH TWICE DAILY IN THE MORNING AND IN THE EVENING ON AN EMPTY STOMACH (1 HOUR BEFORE MEALS AND AT BEDTIME) active Not Available Not Available Not Available prednisone 20 mg tablet TAKE 2 TABLETS BY MOUTH EVERY MORNING FOR 5 DAYS active Not Available Not Available No t Available clonazepam 0.5 mg tablet TAKE 1 TABLET BY MOUTH THREE TIMES DAILY IN THE MORNING, AT NOON, AND AT BEDTIME NEEDED FOR ANXIETY active Not Available Not Available Not Available venlafaxine ER 150 mg capsule,exte nded release 24 hr TAKE 1 CAPSULE BY MOUTH EVERY MORNING DO NOT BREAK, CRUSH, DISSOLVE OR CHEW active Not Available Not Available No t Available clopidogrel 75 mg tablet TAKE 1 TABLET BY MOUTH EVERY MORNING active Not Available Not Available No t Available lidocaine-pr ilocaine 2.5 %-2.5 % topical cream APPLY TOPICALLY TO AFFECTED AREA(S) ONCE active Not Available Not Available No t Available levothyroxin e 100 mcg tablet TAKE 1 TABLET BY MOUTH EVERY MORNING active Not Available Not Available No t Available amlodipine 10 mg tablet TAKE 1 TABLET BY MOUTH EVERY EVENING active Not Available Not Available No t Available esomeprazole magnesium 40 mg capsule,roxane yed release TAKE 1 CAPSULE BY MOUTH ONCE DAILY active Not Available Not Available No t Available folic acid 1 mg tablet TAKE 1 TABLET BY MOUTH EVERY MORNING active Not Available Not Available No t Available bisacodyl 5 mg tablet,delay ed release TAKE 2 TABLETS BY MOUTH EVERY DAY AT BEDTIME active Not Available Not Available No t Available furosemide 20 mg tablet TAKE 1 TABLET BY MOUTH EVERY MORNING active Not Available Not Available No t Available gabapentin 100 mg capsule TAKE 1 CAPSULE BY MOUTH TWICE DAILY IN THE MORNING AND AT BEDTIME active Not Available Not Available No t Available hydroxyzine HCl 10 mg tablet TAKE 1 TABLET BY MOUTH EVERY 8 HOURS NEEDED FOR ANXIETY active Not Available Not Available No t Available fluticasone propionate 50 mcg/actuatio n nasal spray,suspen stacey USE 1 SPRAY IN EACH NOSTRIL EVERY MORNING DIRECTED active Not Available Not Available No t Available prazosin 2 mg capsule TAKE 3 CAPSULES BY MOUTH AT BEDTIME active Not Available Not Available No t Available amoxicillin 875 mg-potassium clavulanate 125 mg tablet TAKE 1 TABLET BY MOUTH TWICE DAILY FOR 7 DAYS active Not Available Not Available No t Available Ventolin HFA 90 mcg/actuatio n aerosol inhaler INHALE 2 PUFFS BY MOUTH EVERY 4 TO 6 HOURS NEEDED active Not Available Not Available No t Available calcium 200 mg (as calcium citrate 950 mg) tablet TAKE 2 TABLETS BY MOUTH TWICE DAILY AT NOON AND IN THE EVENING active Not Available Not Available Not Available aripiprazole 15 mg tablet TAKE 1 TABLET BY MOUTH EVERY MORNING active Not Available Not Available No t Available aripiprazole 20 mg tablet TAKE 1 TABLET BY MOUTH EVERY MORNING active Not Available Not Available No t Available Enbrel SureClick 50 mg/mL (1 mL) subcutaneous pen injector active Not Available Not Available Not Available FreeStyle Lite Strips TEST BLOOD SUGAR 8 TIMES EVERY DAY active Not Available Not Available No t Available FreeStyle Turkey Lite kit USE DIRECTED active Not Available Not Available No t Available blood pressure test kit-large cuff USE TO CHECK BLOOD PRESSURE TWICE DAILY active Not Available Not Available Not Available Tirosint 100 mcg capsule TAKE 1 CAPSULE BY MOUTH ONCE DAILY active Not Available Not Available No t Available Vitamin D3 50 mcg (2,000 unit) capsule TAKE 1 CAPSULE BY MOUTH EVERY MORNING active Not Available Not Available No t Available Linzess 290 mcg capsule TAKE 1 CAPSULE BY MOUTH EVERY MORNING active Not Available Not Available No t Available Pentips Pen Needle 32 gauge x 5/32 USE FIVE TIMES DAILY active Not Available Not Available Not Available Tresiba FlexTouch U-100 insulin 100 unit/mL (3 mL) subcutaneous pen INJECT 30 UNITS SUBCUTANEOU SLY ONCE DAILY active Not Available Not Available No t Available Compact Space Chamber USE WITH INHALER DIRECTED active Not Available Not Available No t Available Fiasp FlexTouch U-100 Insulin 100 unit/mL (3 mL) subcutaneous pen INJECT 2-14 UNITS SUBCUTANEOU SLY FOUR TIMES DAILY active Not Available Not Available Not Available Baqsimi 3 mg/actuation nasal spray USE 1 SPRAY (3MG) IN ONE NOSTRIL FOR A PATIENT WITH SEVERE HYPOGLYCEMI A WHO IS NOT RESPONSIVE AND UNABLE SELF-TREAT WITH GLUCOSE. AFTERWARDS TURN ON SIDE. MAY REPEAT IN 15MINUTES IF PATIENT DOES NOT RESPOND. active Not Available Not Available No t Available Vitals Date Recorded Oxygen saturation Oxygen saturation in Arterial blood by Pulse oximetry Body weight Respiratory rate Body temperature Heart rate Systolic blood pressure Diastolic blood pressure Provider Name and Address Organization Details Last Updated DateTime 3 97 % 97 % 01291.5 36 g 18 /min 97.8 [degF] 88 /min 167 mm[Hg] 84 mm[Hg] Not Available [facility] 3 14:49:26 Social History None recorded. Functional Status None recorded. Mental Status None recorded. Family History Nothing Reported. Medical History No medical history recorded. Gynecological HistoryNo gynecological history recorded. Obstetrics History GPAL:G 0 P 0 0 0 0 Past Encounters Encounter ID Performer Location Encounter Start Date Encounter Closed Date Diagnosis/Indication Diagnosis SNOMED-CT Code Diagnosis ICD10 Code Diagnosis Note [id number] Anitha Camacho MD [address] [address] [place] [address] 04/11/2023 14:49:23 04/12/2023 10:53:58 Respiratory syncytial virus infection 84228502 B97.4 Continue medication s as prescribed ., Rest, stay hydrated. Offered Tessalon but declines due to cough. Health Concerns Section Related Observation LastModified by Organization Detai ls LastModified Time None Recorded Concern Status LastModified by Organization Details LastModified Time None Recorded Advance Directives Directive None Recorded Payers Encounter Date Sequence Insurance Name Policy Number Policy Patten Covered Member ID Patten Member ID Guarantor Name 04/11/2023 1 [facility] - DOS ON OR AFTER 2022 - DUAL ELIGIBLE - LONG-TERM OPTIONS AND ONE CARE (MEDICARE REPLACEMENT/ADV ANTAGE - HMO) Brandie Santana [id number] Brandie Ryanyes Notes Date Note Type Note Provider Name and Address Organization Details Recorded Time 04/11/2023 text/html HPI: 73 year old, Serbian speaking member, F, with hx of DM, HTN, Asthma, Depression, hx of falls and chronic pain, reporting worsesing Productive cough, shortness of breath with activities and fatigue, worsening head aches, treated at [facility] ER on 04/10/23 and dx with RSV. Reported has fever and chills, believes her BP is high. Her [employer]OTH COLOR[employer] worker is with her and member asked for home visit due to having liquid in her lungs . Denied Covid, and reported does not believe has PNA and was advised to F/u with Cards. Worried about the Holidays and feeling about the same as last night when she was at the ER .................. .................. .................. .................. .................. .................. .................. ............... [facility] Nurse Triage Notes (Vinicius Leija): Comments: Reviewed - Johana FISCHER .................. .................. .................. .................. .................. .................. .................. ............... Quality Manager Note From Teddy Miradna: Pt sts dis not call for [employer]. [facility] set up appt. Pt was in ER yesterday diagnosed with RSV treated RX for ventalin and prednisone. Pt denies cp sob fever nausea diarrhea. Baseline vitals assessed. Lungs clear. No edema. [facility] contacted ..pt declined benzonatate. Pt advised self care and continue with RX meds. Pt education on signs indicating the ER. Quality Manager Allergies: Lorazepam .................. .................. .................. .................. .................. .................. .................. ............... Disposition: Fulfilled Comments: Reviewed - Johana RNSEGMD: Patient seen yesterday evening [facility]. COvid negative per patient/ RSV +/She is using her albuterol every 4 hours. She is on prednisone. No nausea vomiting.Pat has hx that includes but not limited to: DM2/COPD/HTN/Fe deficiency anemia/hypothyroid ism/MDD with psychotic features/obesity status post laparoscopic gastrectomy/positi ve SUSAN/fibromyalgia. Anitha Camacho MD [address] [facility],[address], [place], [address], [place] - [employer] 04/12/2023 10:53:56 OBGyn Episode No OBEpisode recorded.
--- OUTSIDE RECORDS SUMMARY | 2024-04-26 11:47 | XMS_ITS ---
Author Organization [facility] Address [address] [place] [address] Care Team Providers Care Cna Ltc Name Role Phone Adolph Terry MD, Pascual Primary Care Provide r Vidal Castillo Jr, Cortes Unavailable Zeb Tang Unavailable Unavailable Encounters Encounter Location Date Provider Diagnosis [facility] [address] [place] [address] 11/24/2023 Cortes Castillo Jr PLAN OF TREATMENT Next Appt Details Provider Name:Cortes wilburn Jr, 11/24/2024 09:20:00 AM, [address], [address], [place], [address],
--- OUTSIDE RECORDS SUMMARY | 2024-04-26 11:47 | XMS_ITS ---
Author Organization [facility] Address [address] [place] [address] Care Team Providers Care Master Mechanic Name Role Phone Adolph Terry MD, Pascual Primary Care Provide r Unavailable Cortes Castillo Jr Unavailable [phone] ClydeZeb peña Unavailable Unavailable ALLERGIES Allergen (clinical drug ingredient) Drug/Non Drug Allergy documented on EMR Reaction Allergy Type Onset Date Status tramadol Tramadol HCl Unknown Drug Allergy Acti ve naproxen Naproxen Unknown Drug Allergy Active lorazepam Lorazepam Unknown Drug Allergy Active celecoxib Celebrex Unknown Drug Allergy Active zolpidem Ambien Unknown Drug Allergy Active REASON FOR VISIT Patient presents today for gerd, fe def anemia MEDICATIONS Medication SIG (Take, Route, Frequency, Duration) Notes Start Date End Date Status Venlafaxine HCl ER A ctive Potassium Chloride 8 MEQ Active Calcium Citrate Acti ve Tirosint 88 MCG Orally Acti ve Effexor XR 150 MG 1 capsule with food Orally Once a day & 150 mg together Active Vitamin D3 Active Dulcolax Active Carafate 1 GM 1 tablet on an empty stomach Orally Twice a day Active Multi Vitamin/Minerals Active Vitamin B1 Active Vitamin A Active Atorvastatin Calcium 10 MG 1 tablet Orally Once a day Active Furosemide 20 MG 1 tablet Orally Once a day Active Plavix 75 MG 1 tablet Orally Once a day Active clonazePAM 1 MG 1 tablet Orally Once a day 11/05/2017 Active Acetaminophen-Codeine #3 300-30 MG 1 tablet as needed Orally every 6 hrs Active oxyCODONE HCl 5 MG/5ML 5 mL as needed Orally every 6 hrs Active amLODIPine Besylate 10 MG 1 tablet Orally Once a day Active SOCIAL HISTORY Tobacco Use: Social History Observation [...] Problem Colon cancer screening (Z12.11) Active confirmed 760062022 VITAL SIGNS BMI 31.35 kg/m2 11/24/2023 Blood pressure systolic 000 mm Hg 11/24/19 24 Blood pressure diastolic 00 mm Hg 024 Height 59 in 11/24/2023 Temperature 97.9 degrees Fahrenheit 11/24/19 24 Weight 155 lb 4 oz lbs 11/24/2023 Encounters Encounter Location Date Provider Diagnosis [facility] [address] [place] [address] 11/24/2023 Cortes Castillo Jr Gastroesophageal reflux disease without esophagitis K21.9 ; Iron deficiency anemia D50.9 and Colon cancer screening Z12.11 ASSESSMENTS Encounter Date Diagnosis Assessment Notes Treatment Notes Treatment Clinical Notes 11/24/2023 Gastroesophageal reflux disease without esophagitis (ICD-10 - K21.9) Gastroesophageal reflux disease material was printed 11/24/2023 Iron deficiency anemia (ICD-10 - D50.9) 11/24/2023 Colon cancer screening (ICD-10 - Z12.11) PLAN OF TREATMENT Treatment Notes Assessment Notes Gastroesophageal reflux dise ase without esophagitis Gastroesophageal reflux disease material was printed Next Appt Details Follow Up: 1 Year, Reason: Provider Name:Cortes wilburn Jr, 11/24/2024 09:20:00 AM, [address], [address], [place], [address],
== END 2024-04-26 11:28 | disposition home or self-care (01) ==
PROVIDERS: PCP Internal Medicine; Visit Provider Registered Nurse Diabetes Educator
DX: E10.649 Type 1 diabetes mellitus with hypoglycemia without coma (principal)

== ENCOUNTER → 2024-04-26 10:37 | Outpatient (BNVA) | payer OTHER, SELFPAY | PROVIDERS: PCP Internal Medicine; Visit Provider Registered Nurse Diabetes Educator | DX: E10.649 Type 1 diabetes mellitus with hypoglycemia without coma (principal) | CPT/HCPCS: 99211 ==

== ENCOUNTER 2024-05-18 10:05 | Outpatient (AMB) | payer OTHER, SELFPAY ==
--- NOTE | 2024-05-18 08:43 | A.OFFVIS_ITS ---
Vital Signs 05/18/24 10:07 Height 4 ft 11 in Weight 147 lb 11.355 oz BMI 29.8 BP 126/74 Blood Pressure Location Rt brachial Position Sitting Pulse 72 Pulse Source Pulse Oximeter Intake Visit Reasons: DM Intake Note: Patient presents today for a follow-up on Type 1 Diabetes Mellitus: Last Diabetic eye exam was on: 01/20/2024 Last Podiatry exam was on: Patient does not see a Scrubber Operator Most recent HbA1c: 8.6%, 05/18/2024 Random Glucose- 260 mg/dL, Today Fingernail Sculptor Required: Yes Fingernail Sculptor Language: Mattress Packer Services: Fingernail Sculptor Present Fingernail Sculptor Name: C-SUSAN Accompanied by: STUDIO MODEL Allergies lorazepam [LORAZEPAM] Allergy (Severe, Verified 05/18/24 10:10) DELIRIUM celecoxib [From Celebrex] Allergy (Intermediate, Verified 05/18/24 10:10) ITCHING tramadol [TRAMADOL] Allergy (Intermediate, Verified 05/18/24 10:10) ITCHING zolpidem [Ambien] Allergy (Unknown, Verified 05/18/24 10:10) unknown HPI Comments Details: Patient is a 74-year-old female with DM type 1 diagnosed at 40 years of age, initially thought to have type 2 diabetes, who presents for management of diabetes. A1C 02/18/24 7.9%, 09/2023 8% down from previous 8.8%. She does report a history of hypoglycemic coma in the past. She had a low sugar in the 20s and was hospitalized for 1 day earlier in 2023. Her sliding scale was significantly reduced at this time. She was recently hospitalized for multiple rib fractures after a fall. She is followed by Rheumatology and is on IV Reclast yearly. Her history indicates hyperparathyroidism secondary to low vitamin-D. Vitamin d was last checked in January and was in good range. Pending hand surgery awaiting A1c. Surgeon Rose Aggarwal [phone] She had been on Levothyroxine 112 mcg daily. TSH 0.64 on 10/16/23 0.03 on 02/17/24. Levothyroxine was reduced to 100mcg Needs repeat testing. Current medication: Tresiba 18 units Fiasp 100-150 1 unit 151-200 4 units 201-250 5 units 251-300 6 year Over 301 7 units Micro and macrovascular complications: CAD She wanted to go on either a VGO (not approved for type 1) or a CeQur insulin patch but was not able to do a return demonstration of the correct amount of clicks to give the correct dosing despite several attempts and re instruction. Dexcom average glucose: 255 14 day continuous glucose monitor report reviewed Glucose Managment indicator 9.4 % Days with CGM data 92 % TIme in ranges: 53 % very high (above 250) 31 % high ?(181-250) 15 % in range ?(70-180] 1 % low (69-55) 0 % ?very low (below 54) Interpretation [having postprandial highs and some a.m. lows at 5 in the morning ] Symptoms reported: denies numbness, tingling, cramping in lower extremities Hypoglycemia: since last visit: she has nightly snack at bedtime 1/2 cup Hyperglycemia: + urinary frequency, +nocturia, +polydypsia Exercise: denies Brazing Machine Tender - CDE education Scrubber Operator: in past would like referral Ophthalmology evaluation:last eye exam 12/2023 mild retinopathy she is to schedule an appt with retinal specialist Other specialists: chef concierge, neurologist, Dr. Tang, Rheumatology Osteoporosis is being managed via annual reclast infusion through Rheumatology. Patient has a h/o hyperparathyroism secondary to vitamin D deficiency. PTH is elevated despite normal calcium and vitamin D. She has had several rib fractures. [facility] Medical History Hypoglycemia due to insulin Elevated parathyroid hormone Osteoporosis Hyperlipidemia (04/21/1959) Depressive disorder (04/21/1959) Nutritional anemia (04/21/1959) Shortness of breath Hypothyroidism (04/21/1959) Anemia Chronic gastritis Heart palpitations NSTEMI (non-ST elevated myocardial infarction) Recurrent falls (12/04/11) Iron deficiency anemia (04/21/1959) Fibromyositis (04/21/1959) Eczema (04/21/1959) High risk medication use Hepatitis C antibody positive in blood Screening for osteoporosis Screening for viral disease Joint swelling Overweight (BMI 25.0-29.9) Neck pain Swelling of knee joint, right Intra-abdominal abscess Diabetes Elevated liver function tests Intestinal malabsorption following gastrectomy Obesity (BMI 30-39.9) 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 Hypertension Cholecystitis Hyperlipidemia, unspecified Essential hypertension Atherosclerotic cardiovascular disease Fibromyalgia Folliculitis Anxiety Depression History of myocardial infarction Diabetes type 1, uncontrolled 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 Mother CVA (cerebral vascular accident) Sister Hypertension Brother Hypertension Liver cancer Social History Household Members: None Housing: Apartment Are you a primary day care home provider to a significant other at home: No Do you presently have visiting nurse or other home services: Yes Unable to assess alcohol history related to: Unable to respond Alcohol intake: never Patient Tobacco Use Status: Never used Tobacco Advance Directives Date on File: 09/17/23 service: No Current occupational status: disabled Current occupation: right hand dominant Physical Exam Vital Signs: Last Vital Signs Pulse 72 05/18/24 10:07 BP 126/74 05/18/24 10:07 BMI result Body Mass Index 29.8 Const Other: Absence of Cushingoid features. Absence of features. Neck exam reveals nl size thyroid about 15 gms. No thyroid nodules palpable. Heart S1 S2, Reg R/R. No M/R G. Skin exam reveals absence of vitiligo or acanthosis nigricans. foot exam deferred today Office Procedures Glucose Monitoring Details Details: see [facility] [id number] - Glucose monitoring, continuous-physician I&R Procedure code (CPT) selection complete Results AMB Hemoglobin A1c AMB Hemoglobin A1c 8.6 % Last Edit by RADHA Tao on 05/18/24 10:40 Results Reviewed Results Reviewed: Laboratory Last Values Glucose (Clinic) 260 mg/dL (60-115) H 05/18/24 10:17 Hgb A1c (Clinic) 8.6 % (4.0-6.0) H 05/18/24 10:23 Assessment & Plan Assessment & Plan (1) Diabetes type 1, uncontrolled: Code(s): E10.65 - Type 1 diabetes mellitus with hyperglycemia Category: Medical Qualifiers: Coma presence: without coma Glycemic state: with hypoglycemia Qualified Code(s): E10.649 - Type 1 diabetes mellitus with hypoglycemia without coma Plan: 74-year-old type 1 diabetic with a history of severe hypoglycemia. Most recent A 1C today in the office of: sensor average 255 last two weeks with some early am hypos and post prandial excursions. A1C of 8% is a reaonable target in this patient with a history of severe hypoglycemia to the 20's requiring hospitalization in 2023. New dosing: Tresiba 16 units Fiasp 80-100 eat first and take 2 units 101-200 5 unit 201-250 6 units 251-300 7 units Over 300 9 unit I will see the patient back in 2 weeks to review glucose sensor. If readings in better control contact her hand surgeon. A1c target for this patient is 8% given the fact that she has had profound hypoglycemia in the past. The patient had an opportunity to ask questions regarding treatment plan. The patient expressed understanding and agreement with the above treatment plan. The patient is aware they should contact our office by phone for worsening glucose readings or for any low blood sugars which may warrant a change in diabetes medication. Compliance is encouraged with medications and any followup testing/consults which may have been ordered. will order labs next ov tsh and pth Orders: Orders AMB Glucose Monitoring Today E10.649 - Type 1 diabetes mellitus with hypoglycemia without coma AMB Hemoglobin A1c Today E10.649 - Type 1 diabetes mellitus with hypoglycemia without coma Referrals Podiatry Referral E10.649 - Type 1 diabetes mellitus with hypoglycemia without coma Medications: Changed From insulin aspart (niacinamide) 100 unit/mL (3 mL) (Fiasp FlexTouch U-100 Insulin) 2 - 14 units subcut QID 30 days 15 mL 6RF To insulin aspart (niacinamide) 100 unit/mL (3 mL) (Fiasp FlexTouch U-100 Insulin) 2 - 9 units subcut QID 15 mL 6RF 30 days Coding Level of Care Code Est Pt Level 4 (00581) Complex EM visit Add On G2211 Diagnoses Uncontrolled type 1 diabetes mellitus with hypoglycemia without coma E10.649 Coma presence: without coma Glycemic state: with hypoglycemia CPT Codes Details - CPT: 00300 - Glucose monitoring, continuous-physician I&R ([id number]) Time Spent (min) 30 Comment Time spent reviewing labs/provider notes, glucose,sensor reports, face to face, chart doc
[2024-05-18 10:07] VITALS: BP 126/74; PULSE 72; BMI 29.8
[2024-05-18 10:23] LABS: Glucose, Whole Blood 260 mg/dL (60-115)
--- OUTSIDE RECORDS SUMMARY | 2024-05-18 10:51 | XMS_ITS | Encounter Summary ---
Author Organization [employer] Address [address] [place] [address] Care Team Providers Care Pest Control Operator Name Role Phone Pascual Daly MD Primary Care Provide r Fani Heck PharmD Unavailable [phone] Reason for Visit * Reason Comments Med Refill Encounter Details Date Type Department Care Team (Late st Contact Info) Description 08/26/2023 Refill [facility] [address] [place] [address] [phone] Momo Rizo MD [address] [place] [address] Benign hypertension Social History Tobacco Use Types Packs/Day Years Used Date Smoking Tobacco: Never Passive Smoke Exposure: Never Smokeless Tobacco: Never Alcohol Use Standard Drinks/Week Comments Never 0 (1 standard drink = 0.6 oz pur e alcohol) Depression Answer Date Recorded Patient Health Questionnaire-9 Score 11 06/10/2023 Patient Health Questionnaire-9 Score 11 06/10/2023 Last PHQ-9: Questionnaire Data Not on file 0 06/10/2023 Housing Stability Answer Date Recorded What is your housing situation today? I have sarahy scarlett 07/24/[address] you li ve. Do you have problems with any of the following? None of the above 07/24/2023 Food Insecurity Answer Date Recorded Within the past 12 months, y ou worried that your food would run out before you got money to buy more: Never True 07/24/2023 Within the past 12 months,th e food you bought just didn't last and you didn't have enough money to get more: Never True 07/2023 Transportation Answer Date Recorded In the past 12 months, has l ack of transportation kept you from medical appts, meetings, work or from getting things needed for daily living? No 07/24/2023 Utilities Answer Date Recorded In the past 12 months, has t he electric, gas, oil or water company threatened to shut off services in your home? No 07/24/2023 Depression Answer Date Recorded Patient Health Questionnaire-2 Score 4 06/10/2023 Comments Unknown Sex and Gender Information Value Date Recorded Sex Assigned at Female 02/18/2022 10:14 AM EDT Legal Sex Female 10:14 AM EDT Gender Identity Female 02/18/2022 10:14 AM EDT Sexual Orientation Straight 03/26/2022 10 :21 AM EST documented as of this encounter Plan of Treatment Upcoming Encounters Date Type Department Care Team (Late st Contact Info) Description 07/22/2024 10:30 AM EDT Clinical Support [facility] [address] [place] [address] Amanda Fernández, AALIYAH [address] [place] [address] 08/03/2024 10:00 AM EDT Office Visit [facility] [address] [place] [address] Pascual Daly MD [address] [place] [id number] documented as of this encounter Goals Goal Patient Goal Type Associated Problems Recent Progress Patient-Stated? Author Blood Pressure < 140/90 Blood Pressure 133/70( 025 11:28 AM EST) No Fani Heck, KristiD documented as of this encounter Visit Diagnoses Diagnosis Benign hypertension Essential hypertension, benign documented in this encounter Additional Health Concerns Assessment Noted Time PHQ-9 Depression Total Score: 11 024 10:24 AM EST documented as of this encounter Care Teams Pest Control Operator Relationship Specialty Start Date End Date Pascual Daly MD [address] [place] [id number] PCP - General Internal Medicine 02/22/14 Fani Heck, KristiD [address] [place] [address] Pharmacist Internal Medicine 12/16/22 documented as of this encounter
--- OUTSIDE RECORDS SUMMARY | 2024-05-18 10:51 | XMS_ITS | Encounter Summary ---
Author Organization [employer] Address [address] [facility] [address] [place] [address] Care Team Providers Care Integration Assistant Name Role Phone Pascual Daly MD Primary Care Provide r Fani Heck PharmD Unavailable [phone] Reason for Visit * Reason Onset Date Comments FYI 12/31/2023 Encounter Details Date Type Department Care Team ([facility] st Contact Info) Description 12/31/2023 Telephone [facility] [address] [place] [address] Pascual Daly MD [address] [place] [address] FYI Social History Tobacco Use Types Packs/Day Years [...] your housing situation today? I have sarahy pantoja 07/24/[address] you li [...] AM EST documented as of this encounter Miscellaneous Notes * Telephone Encounter - Bradley Guthrie - 12/31/2023 3:13 PM EDT Tc from [facility]y with [facility] calling to inform pcp og home visit today. Pt is experiencing constipation and Franky felt her stomach was soft, pt did report she does feel some tenderness directly abovethe belly button. Pt has been taking dulcolax and advised her to call if she does not have any bowel movements by tomorrow. If any questions you can contact Franky at [phone]. documented in this encounter Plan of Treatment Upcoming Encounters Date Type Department Care Team ([facility] st Contact Info) Description 07/22/2024 10:30 AM EDT Clinical Support [facility] MED [facility] PEDS [address] [place] [address] Amanda Fernández, AALIYAH [address] [place] [address] 08/03/2024 10:00 AM EDT Office Visit [facility] [address] [place] [address] Pascual Daly MD [address] [place] [address] documented as of this encounter Goals Goal Patient Goal Type Associated Problems Recent Progress Patient-Stated? Author Blood Pressure < 140/90 Blood Pressure 133/70( 025 11:28 AM EST) No Fani Heck, Woody documented as of this encounter Visit Diagnoses Not on filedocumented in this encounter Additional Health Concerns Assessment Noted Time PHQ-9 Depression Total Score: 11 024 10:24 AM EST documented as of this encounter Care Teams Integration Assistant Relationship Specialty Start Date End Date Pascual Daly MD [address] [place] [address] PCP - General Internal Medicine 02/22/14 Fani Heck, PharmD [address] [place] [address] Pharmacist Internal Medicine 12/16/22 documented as of this encounter
--- OUTSIDE RECORDS SUMMARY | 2024-05-18 10:51 | XMS_ITS | Encounter Summary ---
Author Organization [employer] Address [address] [facility] [address] [place] [address] Care Team Providers Care Groundhand Name Role Phone Pascual Daly MD Primary Care Provide r Fani Heck PharmD Unavailable [phone] Reason for Visit * Reason Comments Med Refill Encounter Details Date Type Department Care Team (Late Contact Info) Description 08/08/2022 Refill [facility] [address] [place] [phone] Momo Rizo MD [address] [place] [phone] Mild intermittent asthma without complication Social History Tobacco Use Types Packs/Day Years Used Date Smoking Tobacco: Never Passive Smoke Exposure: Never Smokeless Tobacco: Never Alcohol Use Standard Drinks/Week Comments Not Asked 0 (1 standard drink = 0.6 oz pur e alcohol) PHQ-2 Answer Date Recorded Patient Health Questionnaire-2 Score 3 07/04/2022 Comments Unknown Sex and Gender Information Value Date Recorded Sex Assigned at Female 02/18/2022 10:14 AM EDT Legal Sex Female 10:14 AM EDT Gender Identity Female 02/18/2022 10:14 AM EDT Sexual Orientation Straight 03/26/2022 10 :21 AM EST documented as of this encounter Plan of Treatment Upcoming Encounters Date Type Department Care Team (Late Contact Info) Description 07/22/2024 10:30 AM EDT Clinical Support [facility] [address] [place] [address] Amanda Fernández, AALIYAH [address] [place] [address] 08/03/2024 10:00 AM EDT Office Visit [facility] [address] [place] [address] Pascual Daly MD [address] [place] [address] documented as of this encounter Goals Goal Patient Goal Type Associated Problems Recent Progress Patient-Stated? Author Blood Pressure < 140/90 Blood Pressure 133/70( 025 11:28 AM EST) No Fani Heck, Woody documented as of this encounter Visit Diagnoses Diagnosis Mild intermittent asthma without complication documented in this encounter Additional Health Concerns Assessment Noted Time PHQ-9 Depression Total Score: 8 07/05/19 23 9:26 AM EDT documented as of this encounter Care Teams Groundhand Relationship Specialty Start Date End Date Pascual Daly MD [address] [place] [phone] PCP - General Internal Medicine 02/22/14 Fani Heck, PharmD [address] [place] [phone] Pharmacist Internal Medicine 12/16/22 documented as of this encounter
--- OUTSIDE RECORDS SUMMARY | 2024-05-18 10:51 | XMS_ITS | Encounter Summary ---
Author Organization [employer] Address [address] [facility] 7t [place] [address] Care Team Providers Care Wine Specialist Name Role Phone Pascual Daly MD Primary Care Provide r Fani Heck PharmD Unavailable [phone] Encounter Details Date Type Department Care Team ([facility] st Contact Info) Description 09/25/2023 Telephone [facility] [address] [place] [address] Pascual Daly MD [address] [place] [address] Social History Tobacco Use Types Packs/Day Years [...] your housing situation today? I have sarahy sing 07/24/[address] you li [...] Description 07/22/2024 10:30 AM EDT Clinical Support [facility] CH[facility] MED & PEDS [address] [place] [address] Amanda Fernández, RN [address] [place] [address] 08/03/2024 10:00 AM EDT Office Visit [facility] MED[facility] [address] [place] [address] Pascual Daly MD [address] [place] [phone] documented as of this encounter Goals Goal Patient Goal Type Associated Problems Recent Progress Patient-Stated? Author Blood Pressure < 140/90 Blood Pressure 133/70( 025 11:28 AM EST) No Fani Heck, PharmD documented as of this encounter Visit Diagnoses Diagnosis Type 2 diabetes mellitus without complication, with long-term current use of insulin ([facility] documented in this encounter Additional Health Concerns Assessment Noted Time PHQ-9 Depression Total Score: 11 024 10:24 AM EST documented as of this encounter Care Teams Wine Specialist Relationship Specialty Start Date End Date Pascual Daly MD [address] [place] [phone] PCP - General Internal Medicine 02/22/14 Fani Heck, KristiD [address] [place] [phone] Pharmacist Internal Medicine 12/16/22 documented as of this encounter
--- OUTSIDE RECORDS SUMMARY | 2024-05-18 10:51 | XMS_ITS | Encounter Summary ---
Author Organization [employer] Address [address] [facility] [address]t [place] [address] Care Team Providers Care Acoustic Warfare Analyst Name Role Phone Pascual Daly MD Primary Care Provide r Fani Heck PharmD Unavailable [phone] Reason for Visit * Reason Comments Med Refill Encounter Details Date Type Department Care Team (Late st Contact Info) Description 09/26/[address] [facility] [address] [place] [address] Pascual Daly MD [address] [place], [place] [phone] Social History Tobacco Use Types Packs/Day Years [...] is your housing situation today? I have sarahyradha pantoja 07/24/[address] you [...] Description 07/22/2024 10:30 AM EDT Clinical Support [facility] [address] [place] [address] Amanda Fernández, AALIYAH [address] [place] [address] 08/03/2024 10:00 AM EDT Office Visit [facility] [address] [place] [address] Pascual Daly MD [address] [place] [address] documented as of this encounter Goals Goal [...] documented as of this encounter Care Teams Acoustic Warfare Analyst Relationship Specialty Start Date End Date Pascual Daly MD [address] [place] [address] PCP - General Internal Medicine 02/22/14 Fani Heck, Woody [address] [place] [phone] Pharmacist Internal Medicine 12/16/22 documented as of this encounter
--- OUTSIDE RECORDS SUMMARY | 2024-05-18 10:51 | XMS_ITS | Data Portability ---
Author Organization [employer] Address [address] [place] [id number] Care Team Providers Care Cutting Machine Tender Name Role Phone [facility] PRIMARY [facility] Referring Provider Assessment Encounter Date Assessment Date Assessment LastModified by Organization Details LastModified Time 04/11/2023 04/11/2023 I provided real -time medical direction via phone for this encounter, and was available for additional phone based assistance as needed. I have reviewed and agree with the Assessment and Plan as documented by the Race Board Attendant. Patient given the opportunity to ask questions. Advised to call for another visit over the weekend if not improving in 2 to 3 days however if develops CP/severe SOB/turning blue/uncontrolle d n/v/d or black/bloody emesis or stool/ AMS/ syncope/ hi fever unresponsive to APAP to call 911- verbalized understanding of instructions [email or web address] Not available 04/12/2023 10:53:05 Plan of Treatment [...] Not available Not available Not available 04/11/2023 [id number] RxNorm Anitha Camacho MD 30 [facility],[address], [place], [address] [facility] [employer] 3 14:49:47 4127 Celebrex medicatio n Not available Not available Not available 04/11/2023 [id number] RxNoalex Camacho MD 30 [facility],[address], [place], [address], [employer] 14:49:57 4128 tramadol medicatio n Not available Not available Not available 04/11/2023 [id number] RxGeovanny Camacho MD 30 [facility],[address], [place], [address], [employer] 14:50:04 Medications Name Sig Start Date Stop [...] Available Not Available No t Available FreeStyle [place] Lite kit USE DIRECTED active Not Available [...] Updated DateTime 3 97 % 97 % 56831.5 36 g 18 /min 97.8 [degF] 88 /min 167 mm[Hg] 84 mm[Hg] Not Available [employer] Density - production 3 14:49:26 Social History None recorded. Functional Status None recorded. Mental Status None recorded. Family History Nothing Reported. Medical History No medical history recorded. Gynecological HistoryNo gynecological history recorded. Obstetrics History GPAL:G 0 P 0 0 0 0 Past Encounters Encounter ID Performer Location Encounter Start Date Encounter Closed Date Diagnosis/Indication Diagnosis SNOMED-CT Code Diagnosis ICD10 Code Diagnosis Note [id number] Anitha Camacho MD Main - inst[facility] [address] [place] [address] 04/11/2023 14:49:23 04/12/2023 10:53:58 Respiratory syncytial virus infection 06317062 B97.4 Continue medication s as prescribed ., Rest, stay hydrated. Offered Tessalon but declines due to cough. Health Concerns Section Related Observation LastModified by Organization Detai ls LastModified Time None Recorded Concern Status LastModified by Organization Details LastModified Time None Recorded Advance Directives Directive None Recorded Payers Encounter Date Sequence Insurance Name Policy Number Policy Patten Covered Member ID Pattne Member ID Guarantor Name 04/11/2023 1 [facility] - DOS ON OR AFTER 2022 - DUAL ELIGIBLE - NURSING HOME OPTIONS AND ONE CARE (MEDICARE REPLACEMENT/ADV ANTAGE - HMO) Brandie Santana [id number] Brandie Ryanyes Notes Date Note Type Note Provider Name and Address Organization Details Recorded Time 04/11/2023 text/html HPI: 73 year old, Syriac speaking member, F, with hx of DM, HTN, Asthma, Depression, hx of falls and chronic pain, reporting worsesing Productive cough, shortness of breath with activities and fatigue, worsening head aches, treated at [facility] ER on 04/10/23 and dx with RSV. Reported has fever and chills, believes her BP is high. Her FILLING AND PACKING SUPERVISOR worker is with her and member asked [...] .................. .................. .................. .................. .................. .................. ............... Race Board Attendant Note From Teddy Miranda: Pt sts dis not call for [facility]. [facility] set up appt. Pt was in ER yesterday diagnosed with RSV treated RX for ventalin and prednisone. Pt denies cp sob fever nausea diarrhea. Baseline vitals assessed. Lungs clear. No edema. [facility] contacted ..pt declined benzonatate. Pt advised self care and continue with RX meds. Pt education on signs indicating the ER. Race Board Attendant Allergies: Lorazepam .................. .................. .................. .................. .................. .................. .................. ............... Disposition: Fulfilled Comments: Reviewed - Johana RNSEGMD: Patient seen yesterday evening [facility]. COvid negative per patient/ RSV +/She is using her albuterol every 4 hours. She is on prednisone. No nausea vomiting.Pat has hx that includes but not limited to: DM2/COPD/HTN/Fe deficiency anemia/hypothyroid ism/MDD with psychotic features/obesity status post laparoscopic gastrectomy/positi ve SUSAN/fibromyalgia. Anitha Camacho MD [address] [facility],[address], [place], [address], [place] - [facility] 04/12/2023 10:53:56 OBGyn Episode No OBEpisode recorded.
--- OUTSIDE RECORDS SUMMARY | 2024-05-18 10:51 | XMS_ITS | Encounter Summary ---
Author Organization [employer] Address [address] [facility] [facility] [address] [place] [address] Care Team Providers Care Bakery Helper Name Role Phone Pascual Daly MD Primary Care Provide r Fani Heck PharmD Unavailable [phone] Reason for Visit * Reason Comments Med Refill Encounter Details Date Type Department Care Team (Late st Contact Info) Description 01/01/2024 Refill [facility] WALK[facility] CENTER [address] [place] [address] [phone] Momo Rizo MD [address] [place] [phone] Social History Tobacco Use Types Packs/Day Years [...] Description 07/22/2024 10:30 AM EDT Clinical Support [facility] CHC MED & PEDS [address] [place] [address] Amanda Fernández RN [address] [place] [address] 08/03/2024 10:00 AM EDT Office Visit [facility] MEDICINE [address] [place] [address] Pascual Daly MD 230 [place] [address] documented as of this encounter Goals Goal [...] documented as of this encounter Care Teams Bakery Helper Relationship Specialty Start Date End Date Pascual Daly MD 230 [place] [address] PCP - General Internal Medicine 02/22/14 Fani Heck, Woody [address] [place] [address] Pharmacist Internal Medicine 12/16/22 documented as of this encounter
--- OUTSIDE RECORDS SUMMARY | 2024-05-18 10:51 | XMS_ITS | Encounter Summary ---
Author Organization [employer] Address [address] [facility] [address] 7t [place] [address] Care Team Providers Care Body Technician Name Role Phone Pascual Daly MD Primary Care Provide r Fani Heck PharmD Unavailable [phone] Encounter Details Date Type Department Care Team (Late st Contact Info) Description 03/05/2024 Refill [facility] MEDICINE [address] [place] [address] Jefry Chun Benign hypertension; Type 2 diabetes mellitus without complication, with long-term current use of insulin ([facility]) Social History Tobacco Use Types Packs/Day Years Used Date Smoking Tobacco: Never Passive Smoke Exposure: Never Smokeless Tobacco: Never Alcohol Use Standard Drinks/Week Comments Never 0 (1 standard drink = 0.6 oz pur e alcohol) Depression Answer Date Recorded Patient Health Questionnaire-9 Score 9 01/29/2024 Patient Health Questionnaire-9 Score 9 01/29/2024 Last PHQ-9: Questionnaire Data Not on file 1 Housing Stability Answer Date Recorded What is [...] Date Recorded Patient Health Questionnaire-2 Score 4 01/29/2024 Comments Unknown Sex and Gender Information Value Date Recorded Sex Assigned at Female 02/18/2022 10:14 AM EDT Legal Sex Female 10:14 AM EDT Gender Identity Female 02/18/2022 10:14 AM EDT Sexual Orientation Straight 03/26/2022 10 :21 AM EST documented as of this encounter Plan of Treatment Upcoming Encounters Date Type Department Care Team ([facility] st Contact Info) Description 07/22/2024 10:30 AM EDT Clinical Support [facility] CHC MED & PEDS 505 [place] [address] Amanda Fernández RN 505 [place] [address] 08/03/2024 10:00 AM EDT Office Visit [facility] MEDICINE [address] [place] [address] Pascual Daly MD [address] [place] [address] documented as of this encounter Goals Goal Patient Goal Type Associated Problems Recent Progress Patient-Stated? Author Blood Pressure < 140/90 Blood Pressure 133/70( 025 11:28 AM EST) No Fani Heck, PharmD documented as of this encounter Visit Diagnoses Diagnosis Benign hypertension Essential hypertension, benign Type 2 diabetes mellitus without complication, with long-term current use of insulin ([facility]) documented in this encounter Additional Health Concerns Assessment Noted Time PHQ-9 Depression Total Score: 9 01/29/20 24 11:00 AM EDT documented as of this encounter Care Teams Body Technician Relationship Specialty Start Date End Date Pascual Daly MD [address] [place] [address] PCP - General Internal Medicine 02/22/14 Fani Heck, KristiD [address] [place] [address] Pharmacist Internal Medicine 12/16/22 documented as of this encounter
--- OUTSIDE RECORDS SUMMARY | 2024-05-18 10:51 | XMS_ITS | Encounter Summary ---
Author Organization [employer] Address [address] [facility] [address] [place] [address] Care Team Providers Care Geodetic Technician Name Role Phone Pascual Daly MD Primary Care Provide r Fani Heck PharmD Unavailable [phone] Reason for Visit * Reason Comments Med Refill Encounter Details Date Type Department Care Team (Late st Contact Info) Description 03/27/2023 Refill [facility] MED & PEDS [address] [place] [address] Titi Gray FNP Major depressive disorder with psychotic features (CMS/HCC) Social History Tobacco Use Types Packs/Day Years Used Date Smoking Tobacco: Never Passive Smoke Exposure: Never Smokeless Tobacco: Never Alcohol Use Standard Drinks/Week Comments Never 0 (1 standard drink = 0.6 oz pur e alcohol) Depression Answer Date Recorded Patient Health Questionnaire-9 Score 9 02/24/2023 Patient Health Questionnaire-9 Score 9 02/24/2023 Last PHQ-9: Questionnaire Data Not on file 1 04/26/2022 Housing Stability Answer Date Recorded What is your housing situation today? I have sarahy pantoja 02/03/[address] you li ve. Do you have problems with any of the following? None of the above 02/03/2023 Food Insecurity Answer Date Recorded Within the past 12 months, y ou worried that your food would run out before you got money to buy more: Never True 02/03/2023 Within the past 12 months,th e food you bought just didn't last and you didn't have enough money to get more: Never True Transportation Answer Date Recorded In the past 12 months, has l ack of transportation kept you from medical appts, meetings, work or from getting things needed for daily living? No 02/03/2023 Utilities Answer Date Recorded In the past 12 months, has t he electric, gas, oil or water company threatened to shut off services in your home? No 02/03/2023 Depression Answer Date Recorded Patient Health Questionnaire-2 Score 3 02/24/2023 Comments Unknown Sex and Gender Information Value [...] Description 07/22/2024 10:30 AM EDT Clinical Support [facility] MED & PEDS 505 [place] [address] Amanda Fernández, AALIYAH 505 [place] [address] 08/03/2024 10:00 AM EDT Office Visit [facility] MEDIC[facility] 230 [place] [address] Pascual Daly MD [address] [place] [address] documented as of this encounter Goals Goal Patient Goal Type Associated Problems Recent Progress Patient-Stated? Author Blood Pressure < 140/90 Blood Pressure 133/70( 025 11:28 AM EST) No Fani Heck, KristiD documented as of this encounter Visit Diagnoses Diagnosis Major depressive disorder with psychotic features (CMS/HCC) documented in this encounter Additional Health Concerns Assessment Noted Time PHQ-9 Depression Total Score: 9 02/25/20 23 11:02 AM EST documented as of this encounter Care Teams Geodetic Technician Relationship Specialty Start Date End Date Pascual Daly MD [address] [place] [address] PCP - General Internal Medicine 02/22/14 Fani Heck, PharmD [address] [place] [address] Pharmacist Internal Medicine 12/16/22 documented as of this encounter
--- OUTSIDE RECORDS SUMMARY | 2024-05-18 10:51 | XMS_ITS | Encounter Summary ---
Author Organization [employer] Address [address] [facility] [address] 7t [place] [address] Care Team Providers Care Revenue Cycle Specialist Name Role Phone Pascual Daly MD Primary Care Provide r Fani Heck PharmD Unavailable [phone] Reason for Visit * Reason Comments Med Refill Encounter Details Date Type Department Care Team (Late st Contact Info) Description 01/14/2024 Refill [facility] MED & PEDS [address] [place] [address] Pascual Daly MD [address] [place], [place] [phone] Fibromyalgia Social History Tobacco Use Types Packs/Day Years [...] 10:30 AM EDT Clinical Support [facility] MED & PEDS [address] [place] [address] Amanda Fernández, AALIYAH 505 [place] [address] 08/03/2024 10:00 AM EDT Office Visit [facility] MEDICINE 230 [place] [address] Pascual Daly MD [address] [place] [address] documented as of this encounter Goals Goal Patient Goal Type Associated Problems Recent Progress Patient-Stated? Author Blood Pressure < 140/90 Blood Pressure 133/70( 025 11:28 AM EST) No Fani Heck, Woody documented as of this encounter Visit Diagnoses Diagnosis Fibromyalgia Unspecified myalgia and myositis documented in this encounter Additional Health Concerns Assessment Noted Time PHQ-9 Depression Total Score: 11 024 10:24 AM EST documented as of this encounter Care Teams Revenue Cycle Specialist Relationship Specialty Start Date End Date Pascual Daly MD [address] [place] [address] PCP - General Internal Medicine 02/22/14 Fani Heck, KristiD [address] [place] [address] [place] [phone] Pharmacist Internal Medicine 12/16/22 documented as of this encounter
--- OUTSIDE RECORDS SUMMARY | 2024-05-18 10:51 | XMS_ITS | Encounter Summary ---
Author Organization [employer] Address [address] [facility] 7t [place] [address] Care Team Providers Care Websphere Commerce Developer Name Role Phone Pascual Daly MD Primary Care Provide r Fani Heck PharmD Unavailable [phone] Reason for Visit * Reason Comments Med Refill Encounter Details Date Type Department Care Team (Late Contact Info) Description 10/02/2022 Refill [facility] MEDICINE 230 [place] [address] Titi Gray FNP Major depressive disorder with [...] Description 07/22/2024 10:30 AM EDT Clinical Support [facility] CHC MED & PEDS 505 [place] [address] Amanda Fernández, AALIYAH 505 [place] [address] 08/03/2024 10:00 AM EDT Office Visit [facility] [address] [facility] [place] [address] Pascual Daly MD 230 [place] [address] documented as of this encounter Goals Goal [...] documented as of this encounter Care Teams Websphere Commerce Developer Relationship Specialty Start Date End Date Pascual Daly MD 230 [place] [address] PCP - General Internal Medicine 02/22/14 Fani Heck, PharmD [address] [facility] [place] [address] Pharmacist Internal Medicine 12/16/22 documented as of this encounter
--- OUTSIDE RECORDS SUMMARY | 2024-05-18 10:51 | XMS_ITS | Encounter Summary ---
Author Organization [employer] Address [address] [facility] 7t [place] [address] Care Team Providers Care Business Applications Specialist Name Role Phone Pascual Daly MD Primary Care Provide r Fani Heck PharmD Unavailable [phone] Encounter Details Date Type Department Care Team ([facility] st Contact Info) Description 09/25/2023 Telephone [facility] MEDICINE [address] [place] [address] Pascual Daly MD [address] [place] [address] Social History Tobacco Use Types Packs/Day Years [...] Description 07/22/2024 10:30 AM EDT Clinical Support [facility] CHC MED & PEDS 505 [place] [address] Amanda Fernández, RN 505 [place] [address] 08/03/2024 10:00 AM EDT Office Visit [facility] MEDICINE [address] [place] [address] Pascual Daly MD [address] [place] [address] documented as of this encounter Goals Goal [...] documented as of this encounter Care Teams Business Applications Specialist Relationship Specialty Start Date End Date Pascual Daly MD [address] [place] [address] PCP - General Internal Medicine 11/4/14 Fani Heck, KristiD [address] [place] [address] Pharmacist Internal Medicine 12/16/22 documented as of this encounter
--- OUTSIDE RECORDS SUMMARY | 2024-05-18 10:51 | XMS_ITS | Encounter Summary ---
Author Organization [employer] Address [address] [facility] 7t [place] [address] Care Team Providers Care Meat Loiner Name Role Phone Pascual Daly MD Primary Care Provide r Fani Heck PharmD Unavailable [phone] Encounter Details Date Type Department Care Team (Late Contact Info) Description 08/29/2022 Abstract [facility] MEDICINE 230 [place] [address] Pascual Daly MD [address] [place] [address] Social History Tobacco Use Types Packs/Day Years [...] Orientation Straight 03/26/2022 10 :21 AM EST COVID-19 Exposure Response Date Recorded In the last 10 days, have yo u been in contact with someone who was confirmed or suspected to have Coronavirus/COVID-19? No / Unsure 08/27/2022 9:58 AM EDT documented as of this encounter Plan of Treatment Upcoming Encounters Date Type Department Care Team (Late st Contact Info) Description 07/22/2024 10:30 AM EDT Clinical Support [facility] CHC MED & PEDS [address] [place] [address] Amanda Fernández, AALIYAH [address] [place], [place] 08/03/2024 10:00 AM EDT Office Visit [facility] MEDICINE [address] [place] [address] Pascual Daly MD [address] [place] [address] documented as of this encounter Goals Goal Patient Goal Type Associated Problems Recent Progress Patient-Stated? Author Blood Pressure < 140/90 Blood Pressure 133/70( 025 11:28 AM EST) No Fani Heck PharmD documented as of this encounter Procedures Procedure Name Priority Date/Time Associated Diagnosis Comments COLONOSCOPY Routine 03/20/2018 documented in this encounter Results * Hm Colonoscopy (03/20/2018) Colonoscopy Normal Normal 03/20/2018 Narrative Sondra Rowe - 03/20/2018 9:09 AM EST Recommended 10 year follow up Historical Provider HEALTH MAINTENANCE Edited Result - Final documented in this encounter Visit Diagnoses Not on filedocumented in this encounter Additional Health Concerns Assessment Noted Time PHQ-9 Depression Total Score: 8 07/05/19 23 9:26 AM EDT documented as of this encounter Care Teams Meat Loiner Relationship Specialty Start Date End Date Pascual Daly MD [address] [place], [place] [phone] PCP - General Internal Medicine 02/22/14 Fani Heck PharmD [address] [place], [place] [phone] Pharmacist Internal Medicine 12/16/22 documented as of this encounter
--- OUTSIDE RECORDS SUMMARY | 2024-05-18 10:51 | XMS_ITS | Encounter Summary ---
Author Organization [employer] Address [address] [facility] 7t [place] [address] Care Team Providers Care Merchant Banker Name Role Phone Pascual Daly MD Primary Care Provide r Fani Heck PharmD Unavailable [phone] Reason for Visit * Reason Comments Med Refill Encounter Details Date Type Department Care Team ([facility] st Contact Info) Description 07/16/2022 Refill [facility] MEDICINE [address] [place] [address] Pascual Daly MD [address] [place], [place] [phone] Social History Tobacco Use Types Packs/Day Years [...] suspected to have Coronavirus/COVID-19? No / Unsure 07/08/2022 10:25 AM EDT documented as of this encounter Plan of Treatment Upcoming Encounters Date Type Department Care Team (Late st Contact Info) Description 07/22/2024 10:30 AM EDT Clinical Support [facility] CHC MED & PEDS [address] [place] [address] Amanda Fernández, RN 505 [place], [place] 08/03/2024 10:00 AM EDT Office Visit [facility] MEDICINE [address] [place] [address] Pascual Daly MD 230 [place] [address] documented as of this encounter Goals Goal [...] documented as of this encounter Care Teams Merchant Banker Relationship Specialty Start Date End Date Pascual Daly MD [address] [place] [address] PCP - General Internal Medicine 02/22/14 Fani Heck, PharmD [address] [place] [phone] Pharmacist Internal Medicine 12/16/22 documented as of this encounter
--- OUTSIDE RECORDS SUMMARY | 2024-05-18 10:51 | XMS_ITS | Encounter Summary ---
Author Organization [employer] Address [address] [facility] 7t [place] [address] Care Team Providers Care Meter Tester Name Role Phone Pascual Daly MD Primary Care Provide r Fani Heck PharmD Unavailable [phone] Reason for Visit * Reason Onset Date Comments Med Refill 01/13/2024 Encounter Details Date Type Department Care Team ([facility] st Contact Info) Description 01/13/2024 Telephone [facility] MEDICINE 230 [place] [address] Pascual Daly MD 230 [place] [address] Med Refill Social History Tobacco Use Types Packs/Day Years [...] encounter Miscellaneous Notes * Telephone Encounter - Rosaline Gilman - 01/13/2024 2:24 PM EDT TC from pt requesting medication refill. Medications needing refill : oxyCODONE (Roxicodone) 5 MG immediate release tablet To be sent to: [facility] - [place], [place] - [address] [place] [address] documented in this encounter Plan of Treatment Upcoming Encounters Date Type Department Care Team ([facility] st Contact Info) Description 07/22/2024 10:30 AM EDT Clinical Support [facility] MED & PEDS 505 [place] [address] Amanda Fernández RN 505 [place] [address] 08/03/2024 10:00 AM EDT Office Visit [facility] MEDICINE [address] [place] [address] Pascual Daly MD 230 [place] [address] documented as of this encounter Goals Goal [...] documented as of this encounter Care Teams Meter Tester Relationship Specialty Start Date End Date Pascual Daly MD 230 [place] [address] PCP - General Internal Medicine 02/22/14 Fani Heck, PharmD [address] [place] [address] Pharmacist Internal Medicine 12/16/22 documented as of this encounter
--- OUTSIDE RECORDS SUMMARY | 2024-05-18 10:51 | XMS_ITS | Encounter Summary ---
Author Organization [employer] Address [address] [place] [address] Care Team Providers Care Vat Overhauler Name Role Phone Pascual Daly MD Primary Care Provide r Fani Heck PharmD Unavailable [phone] Reason for Visit * Reason Comments Med Refill Encounter Details Date Type Department Care Team (Late st Contact Info) Description 07/20/2023 Refill [facility] [address] [place] [address] Titi Gray FNP Major depressive disorder with [...] Upcoming Encounters Date Type Department Care Team ([facility] st Contact Info) Description 07/22/2024 10:30 AM EDT Clinical Support [facility] [address] [place] [address] Amanda Fernández RN [address] [place] [address] 08/03/2024 10:00 AM EDT Office Visit [facility] [address] [place] [address] Pascual Daly MD [address] [place] [phone] documented as of this encounter Goals Goal [...] documented as of this encounter Care Teams Vat Overhauler Relationship Specialty Start Date End Date Pascual Daly MD [address] [place] [id number] PCP - General Internal Medicine 02/22/14 Fani Heck, PharmD [address] [place] [id number] Pharmacist Internal Medicine 12/16/22 documented as of this encounter
--- OUTSIDE RECORDS SUMMARY | 2024-05-18 10:51 | XMS_ITS | Encounter Summary ---
Author Organization [employer] Address [address] [facility] [address] [place] [address] Care Team Providers Care Procurement Services Manager Name Role Phone Pascual Daly MD Primary Care Provide r Fani Heck PharmD Unavailable [phone] Encounter Details Date Type Department Care Team (Late Contact Info) Description 07/01/2022 Abstract [facility] [address] [place] [address] Pascual Daly MD [address] [place] [address] Social History Tobacco Use Types Packs/Day Years [...] suspected to have Coronavirus/COVID-19? No / Unsure 07/01/2022 10:41 AM EDT documented as of this encounter Plan of Treatment Upcoming Encounters Date Type Department Care Team (Late Contact Info) Description 07/22/2024 10:30 AM EDT Clinical Support [facility] [address] [place] [address] Amanda Fernández, AALIYAH [address] [place] [address] 08/03/2024 10:00 AM EDT Office Visit [facility] [address] [place] [address] Pascual Daly MD [address] [place] [address] documented as of this encounter Goals Goal Patient Goal Type Associated Problems Recent Progress Patient-Stated? Author Blood Pressure < 140/90 Blood Pressure 133/70( 025 11:28 AM EST) No Fani Heck, PharmD documented as of this encounter Visit Diagnoses Not on filedocumented in this encounter Additional Health Concerns Assessment Noted Time PHQ-9 Depression Total Score: 9 04/25/19 23 11:31 AM EST documented as of this encounter Care Teams Procurement Services Manager Relationship Specialty Start Date End Date Pascual Daly MD [address] [place] [address] PCP - General Internal Medicine 02/22/14 Fani Heck, PharmD [address] [place] [phone] Pharmacist Internal Medicine 12/16/22 documented as of this encounter
--- OUTSIDE RECORDS SUMMARY | 2024-05-18 10:51 | XMS_ITS | Data Portability ---
Author Organization [facility] [employer] [facility], Main Office Address [address] [place] [address] Care Team Providers Care Chief Jailer Name Role Phone MARII MASSEY Primary Care Provider [facility] OTHER Assessment No assessment recorded. Plan of Treatment Reminders Order Date Submit Date Provider Last Modified By Organization Details Last Modified Time Details Appointments None recorded. Lab None recorded. Referral None recorded. Procedures None recorded. Surgeries None recorded. Imaging None recorded. Medication Orders oxycodone 5 mg tablet 2023 024 [facility] , [address] [place] [address], [address], 4 13:28:18 oxycodone 5 mg tablet 2023 024 [facility] , [address] [place] [address], [address], 4 21:23:28 Patient TargetsNo targets recorded. Patient InstructionsNo instructions recorded. Reason for Referral None Reported. 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 2023 Dori Pena NP [address], [address], [place], [address], [facility] [employer] 4 15:49:21 Hypertensive disorder 27360519 Active 2023 Dori Pena NP [address], [address], [place], [address], [facility] [employer] [facility] 4 15:49:57 Gastroesophage al reflux disease 675681759 Active 2023 Dori Pena NP [address], [address], [place], [address], [place] [facility] 4 15:51:24 Rheumatoid arthritis 83308987 Active 2023 Dori Pena NP [address], [address], [place], [address], [employer] [facility] 4 15:51:29 Mixed anxiety and depressive disorder 907198870 Active 2023 Dori Pena NP [address], [address], [place], [address], [place] [facility] 4 15:51:45 Obesity 611501414 Active 2023 Dori Pena NP [address], [address], [place], [address], [facility] 4 15:51:51 Closed flail chest 599741630 Active 2023 Dori Pena NP [address], [address], [place], [address], [facility] 4 15:52:35 Asthenia 63429587 Active 2023 Dori Pena NP [address], [address], [place], [address], [facility] 4 15:52:46 Irritable bowel syndrome 17131788 Active 2023 Dori Pena NP [address], [address], [place], [address], [facility] 4 16:06:46 Recurrent falls 754784781 Active 2023 Dori Pena NP [address], [address], [place], [address], [facility] 4 16:38:03 Problem Notes None recorded. Procedures Surgical History Date Name Laterality Status Provider Name and Address Organization Details Recorded Time bypass gastroenterostomy completed Dori Pena, AAKASH [address], [place], [address], [facility] 09/17/2023 15:40:41 Laparoscopic cholecystectomy completed Dori Pena, AAKASH [address], [address], [place], [address], [facility] 09/17/2023 15:41:25 fixed suspension procedure of urinary bladder neck completed Dori Pena NP [address], [place], [address], [facility] 09/17/2023 15:42:01 Appendectomy completed Dori Pena NP [address], [place], [address], [facility] 09/17/2023 15:42:11 bilateral cataract surgery completed Dori Pena NP [address] [facility], [address], [place], [address], [facility] 09/17/2023 15:42:26 Imaging Results None recorded. Procedure Notes None recorded. Medical Equipment None Reported. Allergies Allergen ID Allergen Name Allergen Category Reaction Reaction Severity Criticality Documentation Date Start Date Code Code System Note Provider Name and Address Organization Details Recorded Time [id number] 29b50 celecoxib medicatio n other Not [facility] 09/17/2023 43497 7 RxNorm unkno wn Not Available Not Available Not Available [id number] 29b50 lorazepam medicatio n other Not available [facility] 09/17/2023 6470 RxNorm unkno wn Not Available Not Available Not Available [id number] 29b50 tramadol medicatio n other Not available unabletoasse 09/17/2023 54946 RxNorm unkno wn Not Available Not Available Not Available [id number] 29b50 zolpidem medicatio n other Not available [facility] 09/17/2023 27485 RxNorm unkno wn Not Available Not Available [...] Address Organization Details Last Updated DateTime 4 75903.7 8 g 98 /min 18 /min 97.8 [degF] 94 % 94 % 150 mm[Hg] 77 mm[Hg] Dori Pena NP [address] [address], [place], [address] , [email or web address] 4 10:49:41 Date Recorded Body weight Heart rate Respiratory rate Body temperature Oxygen saturation Oxygen saturation in Arterial blood by Pulse oximetry Systolic blood pressure Diastolic blood pressure Provider Name and Address Organization Details Last Updated DateTime 4 14704.7 8 g 83 /min 18 /min 97 [degF] 98 % 98 % 148 mm[Hg] 74 mm[Hg] Dori Pena NP [address] [facility] [address], [place], [address] , [email or web address] 4 13:29:12 Date Recorded Body weight Heart rate Respiratory rate Body temperature Oxygen saturation Oxygen saturation in Arterial blood by Pulse oximetry Systolic blood pressure Diastolic blood pressure Provider Name and Address Organization Details Last Updated DateTime 4 16384.7 8 g 76 /min 18 /min 97.8 [degF] 97 % 97 % 128 mm[Hg] 78 mm[Hg] Dori Pena NP [address] [facility] [address], [place], [address] , [email or web address] 4 12:05:35 Date Recorded Body weight Heart rate Respiratory rate Body temperature Oxygen saturation Oxygen saturation in Arterial blood by Pulse oximetry Systolic blood pressure Diastolic blood pressure Provider Name and Address Organization Details Last Updated DateTime 4 64065 g 80 /min 18 /min 98 [degF] 95 % 95 % 111 mm[Hg] 60 mm[Hg] Dori Pena NP [address] [facility], [facility] [address], [place], [address], [email or web address] 4 11:40:36 Date Recorded Body weight Heart rate Respiratory rate Body temperature Oxygen saturation Oxygen saturation in Arterial blood by Pulse oximetry Systolic blood pressure Diastolic blood pressure Provider Name and Address Organization Details Last Updated DateTime 4 70155 g 74 /min 18 /min 98.4 [degF] 95 % 95 % 124 mm[Hg] 68 mm[Hg] Dori Pena NP [address] [facility], [facility] [address], [place], [address], [email or web address] 4 13:12:09 Social History Question Answer Notes LastModified by Organizat ion Details LastModified Time Tobacco Smoking Status Never Smoker Dori Pena NP [address] [facility] [address], [place], [address], [email or web address] 09/17/2023 15:39:38 Do You Have An [...] (RSV) vaccine, unspecified [address] [facility] 09/19/2023 16:11:12 Tdap [address] [facility] 09/19/2023 16:11:26 Td(adult) unspecified formulation 3 completed [facility] 09/19/2023 16:11:43 Td(adult) unspecified formulation [address] [facility] 09/19/2023 16:11:51 Pneumococcal conjugate PCV 13 6 completed [facility] 09/19/2023 16:12:53 Pneumococcal conjugate PCV20, polysaccharide [id number] conjugate, adjuvant, PF [address] [facility] 09/19/2023 16:13:07 pneumococcal polysaccharide PPV23 [address] [facility] 09/19/2023 16:13:22 pneumococcal polysaccharide PPV23 [facility] 16:13:31 influenza, unspecified formulation 2 [facility]23 16:13:47 influenza, unspecified formulation [address] [facility] 09/19/2023 16:13:55 MMR [address] [facility] 09/19/2023 16:14:21 SARS-COV-2 (COVID-19) vaccine, UNSPECIFIED [address] [facility] 09/19/2023 16:15:58 SARS-COV-2 (COVID-19) vaccine, UNSPECIFIED [address] [facility] 09/19/2023 16:16:13 SARS-COV-2 (COVID-19) vaccine, UNSPECIFIED 1 [facility] 16:16:27 SARS-COV-2 (COVID-19) vaccine, UNSPECIFIED 2 completed [facility] 09/19/2023 16:17:15 SARS-COV-2 (COVID-19) vaccine, UNSPECIFIED 2 completed [facility] 09/19/2023 16:21:38 zoster, unspecified formulation 5 completed [facility] 09/19/2023 16:23:04 zoster, unspecified formulation 9 completed [facility] 09/19/2023 16:23:18 zoster, unspecified formulation 9 completed [facility] 09/19/2023 16:25:18 Past Encounters Encounter ID Performer Location Encounter Start Date Encounter Closed Date Diagnosis/Indication Diagnosis SNOMED-CT Code Diagnosis ICD10 Code Diagnosis Note [id number] Dori Pena NP [address] [address] 09/17/2023 15:22:09 09/23/2023 14:50:24 Closed flail chest 360226622 S22.5XXD with multiple rib fractures and clavicular [...] If stable no further workup needed. 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 IBSlinzess 290 mcg q ammonitor Deficiency anemias 46296 3007 D53.9 folic acidvit q93aheymiz Coronary arteriosclerosis 43675382 I25.10 hx of MIatorvast atin 20 mg po dailyclopi dogrel 75 mg po q amsee above htn medsmonito r Recurrent falls 68320906 2 R29.6 reports history of falls with 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 to help her and balance issuesrepo rts more than 5 falls/year supportive caremonito r [id number] JESSICA HINDS NP [address] [address] [place] [address] 09/18/2023 13:29:08 09/23/2023 15:13:15 Closed flail chest 106565136 S22.5XXD with multiple rib fractures and clavicular [...] If stable no further workup needed. Asthenia 95121665 R53.1 with notable weakness due to injuryPT OT eval and treatsuppo rtive caremonito r Type 1 frank betes mellitus 97621697 E10.9 A1C 8.8%Contin eu:tresiba 30 unit sc qhsinsulin 2-14 SSI sc qidmonitor BS and adjust as needed Hypertensive disorder 38 425190 I10 amlodipine 10 mg po dailylosar zaragoza 100 mg po dailycoreg 6.25 mg bidmonitor bp/vitals 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 715847 E06.3 levothyrox ine 112 mcg dailymonit or tsh as needed Gastroesop hageal reflux disease 314013973 K21.9 esomeprazo le 40 mg o daily Deficiency anemias 91231 3007 D53.9 folic acidvit [id number] Obesity 222583172 E66.9 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 IBSlinzess 290 mcg q ammonitor Coronary arteriosclerosis 22329954 I25.10 hx of MIatorvast atin 20 mg po dailyclopi dogrel 75 mg po q amsee above htn medsmonito r Recurrent falls 76240014 2 R29.6 reports history of falls with 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 to help her and balance issuesrepo rts more than 5 falls/year supportive caremonito r [id number] Dori Pena, AAKASH [address] [address] 09/22/2023 14:27:57 09/29/2023 19:16:34 Closed flail chest 814055593 S22.5XXD with multiple rib fractures and clavicular [...] If stable no further workup needed. Asthenia 06832717 R53.1 with notable weakness due to injuryPT OT eval and treatsuppo rtive caremonito r Type 1 frank betes mellitus 73955873 E10.9 BS 81-252 qryvupK3P 8.8%contin ue:tresiba 30 unit sc qhsinsulin 2-14 SSI sc qidmonitor BS and adjust as needed Hypertensive disorder 38 707544 I10 improving lately, boderline highcontam lodipine 10 mg po dailylosar zaragoza 100 mg po dailycoreg 6.25 mg bidmonitor bp/vitals 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 928322 E06.3 contlevoth yroxine 112 mcg dailymonit or tsh as needed Gastroesop hageal reflux disease 383221127 K21.9 esomeprazo le 40 mg o daily Deficiency anemias 81765 3007 D53.9 folic acidvit r35sclarfy Obesity 947533274 E66.9 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 to help her and balance issuesrepo rts more than 5 falls/year supportive caremonito r Acute cystitis 81925278 N30.00 reports dysuria and occassiona l incontinen ce latelyurin e culture returned showing > 100,000 klebsiella pneumo ssp and started on ceftriaxon e 1gram IM and cefpodoxim e 200 mg po bid x 7 days with probiotic by on provider over the weekend.mo nitor [id number] Jonel Alamo MD [address] [address] 09/23/2023 11:01:43 09/29/2023 19:25:59 Closed fracture of multiple left ribs 9250529238 8866664 S22.42XG see HPIleft rib fxs 2-6 with concern for flail chest , with clavicular fxeval by surgery with no interventi on indicatedm onitor respirator y statusutil ize incentive spirometer monitor for pain controlupd ate surgery with concerns Asthenia 81575931 R53.1 PT OT eval and treatmonit or need for increased support in community Type 1 frank betes mellitus 66999489 E10.9 tresiba 30 units qdSS insulinmon itor glucose and need to titrate Hypertensive disorder 38 868534 I10 norvasc 10 mg qdcoreg 6.25 mg bidlosarta n 100 mg qdcurrentl y elevatedmo nitor need for increased control 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 024411 E06.3 hx of added to PMHmaintai priscilla onsynthroi d 112 mcg qdmonitor tsh prn Gastroesop hageal reflux disease 829486732 K21.9 nexium 40 mg qd continuedm onitor for effect Obesity 607349634 E66.09 dietary eval in patient with baseline DM Mixed anxi ety and depressive disorder 632890839 F41.8 carrying dx requiring multiple medication swill continue out patient medication s includinga bility and ativanmoni tor moodpsych eval prn Rheumatoid arthritis 698 49736 M06.9 remains onenbrel 50 mg q friday Irritable bowel syndrome 21025768 K58.9 ? 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 to help her and balance issuesrepo rts more than 5 falls/year supportive caremonito r Solitary n odule of lung 072175454 R91.1 question right 4 mm upper lobe nodulecons ider repeat scan in 6-12 months Primary insomnia 4487106 F51.01 continue melatoninm onitor need to titrate Abnormal weight loss 267 452840 R63.4 weight dropped > 12 lbs in a few days from admitappea rs to be error in initial intake weightwill monitor Acute cystitis 62722860 N30.00 now on cefpodoxim e to complete coursemoni tor for recurrent disease [id number] Dori Pena NP [facility] [address] [address] 09/24/2023 09:21:20 09/29/2023 19:39:42 Closed fracture of multiple left ribs 6281743577 4979030 S22.42XG with multiple rib fractures and clavicular [...] in am off pmadjust as needed. Asthenia 50917263 R53.1 PT OT eval and treatmonit or need for increased support in community Type 1 frank betes mellitus 17627680 E10.9 BS controlled conttresib a 30 units qdSS insulinmon itor glucose and need to titrate Hypertensive disorder 38 832889 I10 stable on below regimennor vasc 10 mg qdcoreg 6.25 mg bidlosarta n 100 mg qdcurrentl y elevatedmo nitor need for increased control 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 605569 E06.3 hx of added to PMHmaintai priscilla onsynthroi d 112 mcg qdmonitor tsh prn Gastroesop hageal reflux disease 861617149 K21.9 nexium 40 mg qd continuedm onitor for effect Obesity 074411040 E66.09 dietary eval in patient with baseline DM Rheumatoid arthritis 698 51828 M06.9 remains onenbrel 50 mg q friday Irritable bowel syndrome 25500572 K58.9 ? 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 to help her and balance issuesrepo rts more than 5 falls/year supportive caremonito r Primary insomnia 8105928 F51.01 continueme latoninmon itor need to titrate Abnormal weight loss 267 678411 R63.4 weight dropped > 12 lbs in a few days from admitappea rs to be error in initial intake weight6 reweigh pt todaywill monitor Acute cystitis 43499189 N30.00 now on cefpodoxim e to complete courseaysm ptomaticmo nitor for recurrent disease [id number] Dori Pena NP [facility] [address] 09/29/2023 10:39:23 10/03/2023 11:24:38 Closed fracture of multiple left ribs 6329046756 8651972 S22.42XG with multiple rib fractures and clavicular [...] to left shoulderad just as needed. Asthenia 52141427 R53.1 PT OT eval and treatmonit or need for increased support in community Type 1 frank betes mellitus 31050008 E10.9 BS controlled conttresib a 30 units qdSS insulinmon itor glucose and need to titrate Hypertensive disorder 38 175759 I10 stable on below regimen with slightly high bp likley related to pain, monitorcon tnorvasc 10 mg qdcoreg 6.25 mg bidlosarta n 100 mg qdcurrentl y elevatedmo nitor need for increased control 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 165402 E06.3 hx of added to PMHmaintai priscilla onsynthroi d 112 mcg qdmonitor tsh prn Gastroesop hageal reflux disease 617994645 K21.9 contnexium 40 mg qdmonitor for effect Obesity 587322714 E66.09 dietary evalbaseli ne DMweight today please Rheumatoid arthritis 698 61142 M06.9 remains onenbrel 50 mg q friday Irritable bowel syndrome 92344514 K58.9 ? 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 her and balance issuesrepo rts more than 5 falls/year supportive caremonito r Primary insomnia 1708299 F51.01 continueme latoninmon itor need to titrate Abnormal weight loss 267 400163 R63.4 weight dropped > 12 lbs in a few days from admitappea rs to be error in initial intake weight6/10 reweigh pt todaywill monitor Acute cystitis 47427979 N30.00 resolved cefpodoxim e to complete courseaysm ptomaticmo nitor for recurrent disease Mixed anxi ety and depressive disorder 955359759 F41.8 contaripip razole 20 mg dailyvenla faxine 150 mg po dailyprazo sin 6 mg po qhsmelaton in 3 mg po qhshydroxy zine 10 mg po q 8 hours prn anxiety6/1 0 renew clonazepam 0.5 mg po q 8 hours prn anxietymon itor [id number] [facility] [address] [place] [address] 10/02/2023 13:28:32 10/07/2023 10:08:18 Hypertensive disorder 22036633 I10 stable on below regimen as it comes down to 120s systolic post medication contnorvas c 10 mg qdcoreg 6.25 mg bidlosarta n 100 mg qdmonitor need for increased control Closed fra cture of multiple left ribs 0468149542 9345033 S22.42XG with left rib fxs 2-6 with [...] OT eval and txadjust as needed. Asthenia 08896729 R53.1 PT OT eval and treatmonit or need for increased support in community Type 1 frank betes mellitus 64349999 E10.9 BS controlled glucernaco nttresiba 30 units qdSS insulinmon itor glucose and need to titrate Gastroesop hageal reflux disease 143068198 K21.9 contnexium 40 mg qdmonitor for effect Rheumatoid arthritis 698 35382 M06.9 remains onenbrel 50 mg q friday Irritable bowel syndrome 54019294 K58.9 ? 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 to help her and balance issuesrepo rts more than 5 falls/year supportive care and therapy here for balance, strengthen ing, gait, mobility, endurancem onitor Abnormal weight loss 267 365503 R63.4 weight dropped > 12 lbs in a few days from admitappea rs to be error in initial intake weight09/28 reweigh pt today10/01 reweight pt today, no weight since 09/21will monitor Mixed anxi ety and depressive disorder 474190781 F41.8 contaripip razole 20 mg dailyvenla faxine 150 mg po dailyprazo sin 6 mg po qhsmelaton in 3 mg po qhshydroxy zine 10 mg po q 8 hours prn anxiety09/19 0 renew clonazepam 0.5 mg po q 8 hours prn anxiety x 14 days10/01 cont as abovemonit or [id number] Dori Pena NP [facility] [address] [facility] [place] [address] 10/06/2023 12:02:36 10/09/2023 09:34:42 Closed fracture of multiple left ribs 0164077652 1148686 S22.42XG with left rib fxs 2-6 with [...] txadjust as needed. Abnormal weight loss 267 836498 R63.4 weight dropped > 12 lbs in a few days from admitappea rs to be error in initial intake weight10/04 160 lbs which is same as 09/22/23will monitor Hypertensive disorder 38 361111 I10 stable on below regimen as it comes down to 120s systolic post medication contnorvas c 10 mg qdcoreg 6.25 mg bidlosarta n 100 mg qdmonitor need for increased control Asthenia 52200083 R53.1 PT OT eval and treatmonit or need for increased support in community Type 1 frank betes mellitus 13003876 E10.9 pt having syrup and gingerale at [...] and need to titrate Rheumatoid arthritis 698 29420 M06.9 remains onenbrel 50 mg q friday Irritable bowel syndrome 02161720 K58.9 with constipati on today, states many days10/05 mon given today, will do supp if no bm by 4 pm10/05 start senna 8.6 mg po daily? IBSlinzess 290 mcg q ammonitor Coronary arteriosclerosis 75865404 I25.10 hx of MIcoreg 6.25 mg po bidatorvas tatin 20 mg po dailyclopi dogrel 75 mg po q amsee above htn medsmonito r Mixed anxi ety and depressive disorder 549071230 F41.8 contaripip razole 20 mg dailyvenla faxine 150 mg po dailyprazo sin 6 mg po qhsmelaton in 3 mg po qhshydroxy zine 10 mg po q 8 hours prn anxiety09/19 0 renew clonazepam 0.5 mg po q 8 hours prn anxiety x 14 days10/01 cont as above10/05 stable today with above planmonito r [id number] Dori Pena NP [address] [address] 10/08/2023 11:40:06 10/15/2023 15:50:32 Type 1 diabetes mellitus 04144688 E10.9 pt having syrup and gingerale at [...] and need to titrate Irritable bowel syndrome 94786815 K58.9 with constipati on resolved with mom on 7 mon given today10/05 start senna 8.6 mg po daily? IBSlinzess 290 mcg q am10/07 having bm regularly nowmonitor Closed fra cture of multiple left ribs [id number] 6129366 S22.42XG with left rib fxs 2-6 with [...] txadjust as needed. Abnormal weight loss 267 252728 R63.4 weight dropped > 12 lbs in a few days from admitappea rs to be error in initial intake weight10/04 160 lbs which is same as 09/22/23, ? incorrect admit weight but seems [facility] Hypertensive disorder 38 432668 I10 stable on below regimen as it comes down to 120s systolic post medication contnorvas c 10 mg qdcoreg 6.25 mg bidlosarta n 100 mg qdmonitor need for increased control Asthenia 97462213 R53.1 PT OT eval and treatmonit or need for increased support in community Rheumatoid arthritis 698 94606 M06.9 remains onenbrel 50 mg q friday Coronary arteriosclerosis 42475497 I25.10 hx of MIcoreg 6.25 mg po bidatorvas tatin 20 mg po dailyclopi dogrel 75 mg po q amsee above htn medsmonito r Mixed anxi ety and depressive disorder 758325764 F41.8 contaripip razole 20 mg dailyvenla faxine 150 mg po dailyprazo sin 6 mg po qhsmelaton in 3 mg po qhshydroxy zine 10 mg po q 8 hours prn anxiety09/19 0 renew clonazepam 0.5 mg po q 8 hours prn anxiety x 14 days10/01 cont as above10/05 stable today with above plan10/07 stable today with above planmonito r Hyperkalemia 37286713 E8 7.5 k of 5.7 on give kayexalate 15 gm today10/08 bmp in ammonitor for additional e lyte abbormalit ies [id number] Dori Pena NP [address] [address] [place] [address] 10/09/2023 13:08:06 10/15/2023 16:27:22 Closed fracture of multiple left ribs [id number] 8614162 S22.42XG resolving with left rib fxs 2-6 [...] prnadjust as needed outpt with pcp Hyperkalemia 55083634 E8 7.5 k of 5.7 on give kayexalate 15 gm on 10/07monito r for additional e lyte abnormalit ies outpt with pcp Type 1 frank betes mellitus 24902172 E10.9 BS slightly high while at rehab with eating sugary foods/drin ksPlan: diet sodas and diet syrup and less sugary choicescon tglucernat resiba 30 units qdSS insulin with meals as per home schedmonit or glucose and need to titrate outpt with pcp outpt Irritable bowel syndrome 53837164 K58.9 with constipati on resolvedse nna 8.6 mg po daily (started at rehab)? IBSlinzess 290 mcg q ammonitor with pcp outpt Abnormal weight loss 267 154691 R63.4 weight dropped > 12 lbs in a few days from admitappea rs to be error in initial intake weight10/04 160 lbs which is same as 09/22/23, ? incorrect admit weight but seems stable nowmonitor oupt with pcp Hypertensive disorder 38 603000 I10 stable on below regimen as it comes down to 120s systolic post medication contnorvas c 10 mg qdcoreg 6.25 mg bidlosarta n 100 mg qdmonitor need for increased control outpt with pcp Asthenia 24111998 R53.1 PT OT eval and treat outpt prnmonitor need for increased support in community with pcp Rheumatoid arthritis 698 17870 M06.9 remains onenbrel 50 mg q fridaymoni tor outpt with pcp Coronary arteriosclerosis 54505471 I25.10 hx of MIcoreg 6.25 mg po bidatorvas tatin 20 mg po dailyclopi dogrel 75 mg po q amsee above htn medsmonito r outpt wtih pcp 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 contaripip razole 20 mg dailyvenla faxine 150 mg po dailyprazo sin 6 mg po qhsmelaton in 3 mg po qhshydroxy zine 10 mg po q 8 hours prn anxietyclo nazepam 0.5 mg po q 8 hours prn anxietymon itor outpt with pcp Gastroesop hageal reflux disease 536247182 K21.9 contnexium 40 mg qdmonitor for effect outpt with pcp Recurrent falls 97883142 2 R29.6 reports history of falls with 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 to help her and balance issuesrepo rts more than 5 falls/year supportive care and therapy here for balance, strengthen ing, gait, mobility, endurance outpt rpnmonitor outpt with pcp 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 612073 E06.3 hx of added to PMHmaintai priscilla onsynthroi d 112 mcg qdmonitor tsh prn with pcp Obesity 766454880 E66.09 dietary evalbaseli ne DMweight to be monitored with pcp outpt Primary insomnia 2773955 F51.01 continueme latoninmon itor need to titrate outpt Acute cystitis 70593002 N30.00 resolved cefpodoxim e to complete courseaysm ptomaticmo nitor for recurrent disease outpt with pcp Health Concerns Section Related Observation LastModified by Organization Detai ls LastModified Time None Recorded Concern Status LastModified by Organization Details LastModified Time None Recorded Advance Directives Directive N: Payers Encounter Date Sequence Insurance Name Policy Number Policy Patten Covered Member ID Patten Member ID Guarantor Name 09/29/[address] [facility] - DOS ON OR AFTER 2022 - [place]V ANTAGE - PPO) Brandie Tanga [id number] Brandie Tanga 10/02/[address] [facility] - DOS ON OR AFTER 2022 - [place]V [place] - [place]PO) Brandie Tanga [id number] Brandie Tanga 10/06/[address] [facility] - DOS ON OR AFTER 2022 - [place]V [place] - [place]) Brandie Tanga [id number] Brandie Tanga 10/08/[address] [facility] - DOS ON OR AFTER 2022 - [place]V ANT[place] - [place]PO) Brandie Luevano [id number] Brandie Tanga 10/09/[address] [facility] - DOS ON OR AFTER 2022 - [place]V ANTAGE - [place]PO) Brandie Luevano [id number] Brandie Luevano Notes Date Note Type Note [...] a cane usually Dori Pena NP [address], [address], [place], [address], [email or web address] 09/29/2023 11:09:33 10/02/2023 text/html Pt is [...] is sitting up in bed with her OUTREACH LIAISON visiting. She has her sling in place [...] a cane usually Dori Pena NP [address], [address], [place], [address], [email or web address] 10/02/2023 13:48:50 10/06/2023 text/html Pt is seen for a n acute rounding visit. Brandie is working here at [facility] and is feeling good and more mobile lately with left sling in place. She continues with therapy and making gains. She was treated for a UTI when she first came to [facility] and denies any urinary symptoms. Nursing noted [...] a cane usually Dori Pena NP [address], [address], [place], [address], [email or web address] 10/06/2023 12:26:22 10/08/2023 text/html Pt is seen [...] in a sling for comfort. While at [facility]:She was treated for a UTI when she first came to [facility] and denies any urinary symptoms. Nursing noted [...] a cane usually Dori Pena NP [address], [address], [place], [address], [email or web address] 10/08/2023 12:05:52 10/09/2023 text/html Pt is [...] in a sling for comfort. While at [facility]:She was treated for a UTI when she first came to [facility] and denies any urinary symptoms. Nursing noted [...] a cane usually Dori Pena NP [address], [address], [place], [address], [facility] [employer] 10/09/2023 16:50:56 OBGyn Episode No OBEpisode recorded.
--- OUTSIDE RECORDS SUMMARY | 2024-05-18 10:51 | XMS_ITS | Encounter Summary ---
Author Organization [employer] Address [address] [facility] 7t [place] [address] Care Team Providers Care Assisted Living Home Director Name Role Phone Pascual Daly MD Primary Care Provide r Fani Heck PharmD Unavailable [phone] Reason for Visit * Reason Onset Date Comments Appointment Request 09/03/2022 Encounter Details Date Type Department Care Team ([facility] st Contact Info) Description 09/03/2022 Telephone [facility] MEDICINE [address] [place] [address] Pascual Daly MD [address] [place] [address] Appointment Request Social History Tobacco Use Types Packs/Day Years [...] AM EDT documented as of this encounter Miscellaneous Notes * Telephone Encounter - Rosaline Gilman - 09/03/2022 10:33 AM EDT Tc from pt requesting to r/s todays no show appt . documented in this encounter Plan of Treatment Upcoming Encounters Date Type Department Care Team (Late st Contact Info) Description 07/22/2024 10:30 AM EDT Clinical Support [facility] MED & PEDS [address] [place] [address] Amanda Fernández, RN [address] [place] [address] 08/03/2024 10:00 AM EDT Office Visit [facility] MED[facility]INE [address] [place] [address] Pascual Daly MD [address] [place] [address] documented as of this encounter Goals Goal Patient Goal Type Associated Problems Recent Progress Patient-Stated? Author Blood Pressure < 140/90 Blood Pressure 133/70( 025 11:28 AM EST) No Fani Heck PharmD documented as of this encounter Visit Diagnoses Not on filedocumented in this encounter Additional Health Concerns Assessment Noted Time PHQ-9 Depression Total Score: 8 07/05/19 23 9:26 AM EDT documented as of this encounter Care Teams Assisted Living Home Director Relationship Specialty Start Date End Date Pascual Daly MD [address] [place] [address] PCP - General Internal Medicine 02/22/14 Fani Heck PharmD [address] [place] [address] Pharmacist Internal Medicine 12/16/22 documented as of this encounter
--- OUTSIDE RECORDS SUMMARY | 2024-05-18 10:52 | XMS_ITS | Encounter Summary ---
Author Organization [employer] Address [address] [place] [address] Care Team Providers Care Chief Credit Officer Name Role Phone Pascual Daly MD Primary Care Provide r Fani Heck PharmD Unavailable [phone] Reason for Visit * Reason Comments Med Refill Encounter Details Date Type Department Care Team (Late st Contact Info) Description 03/04/2023 Refill [facility] MEDICINE [address] [place] [address] Pascual Daly MD [address] [place], [place] [id number] Type 2 diabetes mellitus without complication, with long-term current use of insulin ([facility]) Social History Tobacco Use Types Packs/Day Years [...] Description 07/22/2024 10:30 AM EDT Clinical Support [facility] MED & PEDS [address] [place] [address] Amanda Fernández, AALIYAH [address] [place] [address] 08/03/2024 10:00 AM EDT Office Visit [facility] MEDICINE [address] [place] [address] Pascual Daly MD [address] [place] [address] documented as of this encounter Goals Goal Patient Goal Type Associated Problems Recent Progress Patient-Stated? Author Blood Pressure < 140/90 Blood Pressure 133/70( 025 11:28 AM EST) No Fani Heck, KristiD documented as of this encounter Visit Diagnoses Diagnosis Type 2 diabetes mellitus without complication, with long-term current use of insulin ([facility]) documented in this encounter Additional Health Concerns Assessment Noted Time PHQ-9 Depression Total Score: 9 02/25/20 23 11:02 AM EST documented as of this encounter Care Teams Chief Credit Officer Relationship Specialty Start Date End Date Pascual Daly MD [address] [place] [address] PCP - General Internal Medicine 02/22/14 Fani Heck, KristiD [address] [place] [address] Pharmacist Internal Medicine 12/16/22 documented as of this encounter
--- OUTSIDE RECORDS SUMMARY | 2024-05-18 10:52 | XMS_ITS | Patient Health Record ---
Author Organization [facility] Address [address] [place] [address] Care Team Providers Care Supervisor [employer] Name Role Phone Adolph Terry MD, Pascual [...] Problem Colon cancer screening (Z12.11) Active confirmed 192651589 Problem Epigastric pain (R10.13) Active confirmed 81475114 Problem Iron deficiency anemia (D50.9) Active confirmed Iron deficiency anemia (58019553) Problem Gastroesophageal reflux disease without esophagitis (K21.9) Active confirmed 839292388 Problem Nausea and vomiting, intractability of vomiting not specified, unspecified vomiting type (R11.2) Active confirmed 01603902 VITAL SIGNS Temperature 97.9 degrees Fahrenheit 11/24/2023 Blood pressure diastolic 00 mm Hg 11/24/2023 Height 59 in 11/24/2023 Blood pressure systolic 000 mm Hg 11/24/2023 Weight 155 lb 4 oz lbs 11/24/2023 BMI 31.35 kg/m2 11/24/2023 Encounters Encounter Location Date Provider Diagnosis [facility] [address] [place] [address] 09/03/2023 Cortse Castillo Jr [facility] [address] [place] [phone] 11/24/2023 Cortes Castillo Jr Gastroesophageal reflux disease without esophagitis K21.9 ; Iron deficiency anemia D50.9 and Colon cancer screening Z12.11 [facility] [address] [place] [address] 08/19/2023 Cortes Castillo Jr [facility] [address] [place] [address] 03/01/2024 Cortes Castillo Jr [facility] [address] [place] [phone] 11/24/2023 Cortes Castillo Jr ASSESSMENTS Encounter Date [...] Name:Cortes Guido wilburn Jr, 11/24/2024 09:20:00 AM, [address] [place] [address], [address], [place], [address], Insurance Providers Payer Name Payer Address Payer Phone Subscriber Number Group Number Insured Name Patient Relationship to Insured Coverage Start Date Coverage End Date [facility] [address] Attn Claims MARK Littlejohn [id number] ROSANNE WILLIS Self - patient is the [...]
--- OUTSIDE RECORDS SUMMARY | 2024-05-18 10:52 | XMS_ITS | Encounter Summary ---
Author Organization [employer] Address [address] [facility] 7t [place] [address] Care Team Providers Care Grade Setter Name Role Phone Pascual Daly MD Primary Care Provide r Fani Heck PharmD Unavailable [phone] Reason for Visit * Reason Onset Date Comments Appointment Request 01/12/2024 Encounter Details Date Type Department Care Team ([facility] Contact Info) Description 01/12/2024 Telephone [facility] MEDICINE [address] [place] [address] Pascual Daly MD [address] [place] [address] Appointment Request Social History Tobacco Use Types [...] encounter Miscellaneous Notes * Telephone Encounter - Ad Toure - 01/12/2024 11:51 AM EDT Tc from [facility] requesting to r/s HOSPITAL SUPERINTENDENT RN appt scheduled for 01/29/24 @ 11am. Appt was cancelled. Please contact at [phone] documented in this encounter Plan of Treatment Upcoming Encounters Date Type Department Care Team ([facility] Contact Info) Description 07/22/2024 10:30 AM EDT Clinical Support [facility] MED [facility] PEDS [address] [place] [address] Amanda Fernández, RN [address] [place] [address] 08/03/2024 10:00 AM EDT Office Visit [facility] MEDICINE [address] [place] [address] Pascual Daly MD [address] [place] [address] documented as of this encounter Goals Goal [...] documented as of this encounter Care Teams Grade Setter Relationship Specialty Start Date End Date Pascual Daly MD [address] [place] [address] PCP - General Internal Medicine 02/22/14 Fani Heck, KristiD [address] [place] [address] Pharmacist Internal Medicine 12/16/22 documented as of this encounter
--- OUTSIDE RECORDS SUMMARY | 2024-05-18 10:53 | XMS_ITS | Clinical Summary ---
Author Organization [facility] Address [address] [place] [address] Care Team Providers Care Ware Dresser Name Role Phone Pascual Daly MD Primary Care Provide r Fani Heck PharmD Unavailable [phone] Allergies Active Allergy Reactions Criticality Noted Date Comments Celecoxib Nausea Only,Unknown 05/25/2010 Lorazepam Unknown 02/12/2018 Naproxen Unknown 07/03/2022 Tramadol Hives,Unknown 11/02/2012 Zolpidem Anxiety,Unknown Low 01/26/2019 Medications acetaminophen (Tylenol) 500 MG tablet take 1 tablet (500MG) by oral route every 6 hours as needed Active folic acid (Folvite) 1 MG tablet take 1 tablet by oral route every day Active glucose blood (FREESTYLE LITE) test strip USE 1 Each by DIRECTED route 4 times every day Active insulin aspart, with niacinamide, (Fiasp FlexTouch) 100 UNIT/ML injection Inject 2-15 units before meals and snacks up to 5 times a day. Active insulin degludec (Tresiba FlexTouch) 100 UNIT/ML injection Inject 20 units subcutaneously every day Active Bisacodyl EC 5 MG EC tablet Take 10 mg by mouth at bedtime. Active calcium citrate (Calcitrate) 950 (200 Ca) MG tablet Take 2 tablets by mouth 2 times daily. Active D3 Super Strength 50 MCG (2000 UT) capsule Take 50 mcg by mouth in the morning. Active clopidogrel (Plavix) 75 MG tablet Take 75 mg by mouth in the morning. Active esomeprazole (NexIUM) [address] capsule Take 40 mg by mouth Once daily. Active UltiGuard SafePack Pen Needle 32G X 4 MM misc USE DIRECTED FIVE TIMES DAILY Active Linzess 290 MCG capsule Take 290 mcg by mouth in the morning. Active fluticasone (Flonase Allergy Relief) 50 MCG/ACT nasal sprayIndication s:Influenza-lik e symptoms Administer 1 spray into each nostril in the morning. Shake gently. Before first use, prime pump. After use, clean tip and replace cap. 16 g 12 Active carvedilol (Coreg) 6.25 MG tablet TAKE 1 TABLET BY MOUTH TWICE DAILY IN THE MORNING AND AT BEDTIME Active Baqsimi Two Pack 3 MG/DOSE nasal powder USE 1 SPRAY (3MG) IN ONE NOSTRIL FOR A PATIENT WITH SEVERE HYPOGLYCEMIA WHO IS NOT RESPONSIVE AND UNABLE SELF-TREAT WITH GLUCOSE. AFTERWARDS TURN ON SIDE. MAY REPEAT IN 15MINUTES IF PATIENT DOES NOT RESPOND. Active Simethicone Ultra Strength 180 MG capsule TAKE 1 CAPSULE BY MOUTH FOUR TIMES DAILY AFTER MEALS 023 Active ARIPiprazole (Abilify) 20 MG tablet Take 1 tablet (20 mg) by mouth in the morning. 90 tablet 1 023 Active albuterol (2.5 MG/3ML) 0.083% nebulizer solution INHALE 1 AMPULE USING A NEBULIZER EVERY THREE HOURS NEEDED FOR SHORTNESS OF BREATH 023 Active hydrOXYzine HCl (Atarax) 10 MG tablet Take 1 tablet (10 mg) by mouth every 8 (eight) hours if needed for anxiety. 50 tablet 024 Active prazosin (Minipress) 2 MG capsuleIndicati ons:Major depressive disorder with psychotic features (CMS/HCC) Take 3 capsules (6 mg) by mouth at bedtime. 270 capsule 1 Active melatonin 3 MG tablet Take 1 tablet (3 mg) by mouth if needed at bedtime for sleep. 30 tablet 2 024 Active clonazePAM (KlonoPIN) 0.5 MG tabletIndicatio ns:Major depressive disorder with psychotic features (CMS/HCC) Take 1 tablet (0.5 mg) by mouth if needed in the morning, at noon, and at bedtime for anxiety. 90 tablet Active levothyroxine (Synthroid, Levoxyl) 112 MCG tablet Take 112 mcg by mouth Once per day. Active venlafaxine XR (Effexor XR) 150 MG 24 hr capsuleIndicati ons:Major depressive disorder with psychotic features (CMS/HCC) Take 1 capsule (150 mg) by mouth in the morning. Do not crush or chew. 90 capsule 1 Active losartan (Cozaar) 100 MG tabletIndicatio ns:Benign hypertension TAKE 1 TABLET BY MOUTH EVERY MORNING 90 tablet 1 Active gabapentin (Neurontin) 100 MG capsuleIndicati ons:Pain TAKE 1 CAPSULE TWICE DAILY IN THE MORNING AND AT BEDTIME 180 capsule 1 Active Continuous Glucose Sensor (Dexcom G7 Sensor) misc DIRECTED Active Actemra ACTPen 162 MG/0.9ML solution auto-injector Inject as directed (likely every other week; verify dose with patient or pharmacy) Active atorvastatin (Lipitor) 20 MG tabletIndicatio ns:Type 2 diabetes mellitus without complication, with long-term current use of insulin (CMS/HCC) TAKE 1 TABLET BY MOUTH EVERY MORNING 90 tablet Active amLODIPine (Norvasc) 10 MG tabletIndicatio ns:Benign hypertension TAKE 1 TABLET BY MOUTH EVERY EVENING 90 tablet Active albuterol (Ventolin HFA) 108 (90 Base) MCG/ACT inhalerIndicati ons:Mild intermittent asthma without complication INHALE 2 PUFFS BY MOUTH EVERY 4 TO 6 HOURS NEEDED 18 g 1 Active chlorhexidine (Peridex) 0.12 % solution Use 15 mL in the mouth or throat if needed (for mouthwash 15 ml for 30 seconds, swish and spit) for up to 14 days. 120 mL 025 2024 Active oxyCODONE (Roxicodone) 5 MG immediate release tabletIndicatio ns:Fibromyalgia TAKE 1 TABLET BY MOUTH EVERY TWELVE HOURS NEEDED FOR SEVERE PAIN 56 tablet 025 Active albuterol (Ventolin HFA) 108 (90 Base) MCG/ACT inhalerIndicati ons:Mild intermittent asthma without complication INHALE 2 PUFFS BY MOUTH EVERY 4 TO 6 HOURS NEEDED 18 g 1 024 2024 Discontinued oxyCODONE (Roxicodone) 5 MG immediate release tabletIndicatio ns:Fibromyalgia Take 1 tablet (5 mg) by mouth every 12 (twelve) hours if needed for severe pain. Do not start before April 13, 2024. 56 tablet 024 2024 Discontinued Active Problems Problem Noted Date Diagnosed Date Hospital discharge follow-up 10/21/2023 Assessment & Plan (10/21/2023 10:15 AM EDT): Patient admitted to [facility] 09/[facility]/23 after she presented to [facility] emergency room due to left-sided chest discomfort as per patient she was visiting family in [place], on August 26 she turned in high bed and fell sustaining injury to left side of shoulder and chest she was seen in the emergency room and was told to have clavicle and 1 rib fracture she was discharged home on analgesics and muscle relaxers and was recommended outpatient orthopedic follow-up she returned back to her home the day before her admission when she presented to emergency room due to left-sided chest pain, difficulty sleeping, unable to take deep breaths due to pinching pain and due to worsening cough. In the emergency room CT chest showed 2nd through 6 left- sided rib fractures with to fracture components each, meeting the criteria for flail chest associated with left pleural thickening adjacent to displaced in inwardly depressed 3rd and 4th lateral rib fractures, patient also noted to have bilateral small effusion left greater than right and a possible 4 mm right upper lobe pulmonary nodule, 12 month follow-up for high-risk patient is recommended, in the emergency room patient treated IV morphine, IV Dilaudid, IV Zofran and lidocaine patch Pt was evaluated by thoracic surgery and they recommend pain control and pulmonary toilet, no surgical intervention was planned. Age-related osteoporosis wit hout current pathological fracture 10/21/2023 Assessment & Plan (01/29/2024 11:20 AM EDT): Under the care of rheumatology DEXA shows severe osteoporosis. She received 1st dose of Reclast 09/2023, infusion was uneventful. Labs done soon after the fracture showed significantly elevated PTH. Assessment & Plan (10/21/2023 10:24 AM EDT): Under the care of rheumatology Pt tells me she has an appointment today for an injection to treat this with rheumatology office Acute pain of left shoulder 10/21/2023 Assessment & Plan (01/29/2024 11:18 AM EDT): Hx of fall Plain films left shoulder showed: Healed distal clavicle fracture. Multiple left-sided rib fractures not well demonstrated. No new abnormality. Seen by Ortho evaluation 11/18/2023 they recommended PT eval and prn follow up Continue Tylenol/Oxycodone for now for pain control Assessment & Plan (11/11/2023 1:04 PM EDT): Pt here for a follow up s/p fall Plain films left shoulder showed: Healed distal clavicle fracture. Multiple left-sided rib fractures not well demonstrated. No new abnormality. Ortho evaluation pending 11/18/2023 Continue Tylenol/Oxycodone for now for pain control Assessment & Plan (10/21/2023 10:22 AM EDT): Pt s/p fall Plan: plain films left shoulder Ortho evaluation Closed fracture of multiple ribs of left side with routine healing 10/21/2023 Assessment & Plan (10/21/2023 10:25 AM EDT): On oxycodone 5 mg po q 8 hrs PRN Will continue for now Acute bronchitis due to respiratory syncytial vi lyndsay (RSV) 04/30/2023 Assessment & Plan (05/01/2023 2:12 PM EST): Significantly improving Continue albuterol or combivent inh q6h Restart mucinex for at least 10d. Counseld to use incentive spirometer at home, several times per day, to avoid atelectasis. Ambulate as Tolerated. FU with PCP in , will defer covid booster by then so that she's better recovered From this. Mild intermittent asthma with acute exacerbation 04/16/2023 Preventative health care 08/27/2022 Assessment & Plan (10/21/2023 10:18 AM EDT): Mammogram 06/05/2023 Normal Pap 10/30/12 normal, given age no need to continue Colonoscopy done 03/20/2018 Normal Assessment & Plan (08/27/2022 10:17 AM EDT): Mammogram 2019 Normal Pap 10/30/12 normal, given age no need to continue Colonoscopy done 03/20/2018 Normal S/P gastric bypass 08/27/2022 Assessment & Plan (08/27/2022 10:18 AM EDT): Pt is s/p laparoscopic gastrectomy by [facility] her weight has dropped significantly. She will continue to follow with them. Has no particular complaints. 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 She says it falls out when she brushes her hair Pt evaluated by Dr Guevara Rheumatoid arthritis involvi ng multiple sites with positive rheumatoid factor 08/27/2022 Assessment & Plan (01/29/2024 11:21 AM EDT): Under the care of Rheumatology on Actemra 162, last seen 10/2023 Assessment & Plan (10/21/2023 10:16 AM EDT): Under the care of Rheumatology on Embrel 50 weekly Assessment & Plan (06/12/2023 11:27 AM EST): Under the care of Rheumatology on Embrel 50 weekly Assessment & Plan (08/27/2022 10:21 AM EDT): Previous transaminitis resolved as of most recent LFTS 11/29/2021 s Hepatitis Serologies negatives Liver U/S 09/05/2021 showed: Small right pleural effusion and small pericardial effusion. No significant abnormality within the abdomen appreciated. Pt was seen by GI 09/07/2021 who ordered an SUSAN and GGT . SUSAN was strongly positive and GGT was elevated at [address] [employer] Hepatitis ? Pt will continue to follow with GI Gastroesophageal reflux disease without esophagi tis 05/13/2022 Major depressive disorder with psychotic feature s 03/26/2022 Assessment & Plan (07/24/2023 11:09 AM EDT): Following with Titi Gray Has appointment with new Psychiatrist 08/01/2023 Pt only has Klonopin to last her until 07/28/2023 Will give her 1 refill so she can wait to see her psychiatrist Assessment & Plan (06/10/2023 11:11 AM EST): Still feeling quite sad r/t recent of one of her sons. Not sleeping well and requests something to help with that. Will have Melatonin 3 mg at bedtime prn. Otherwise continue current medications: Abilify 20 mg daily, Clonazepam 0.5 mg TID, Prazosin 2 mg 3 at bedtime, Venlafaxine XR 150 mg daily. Also gets Gabapentin 100 mg BID per PCP. She will F/U with therapist as usual, and will have intake appointment with agency psychiatric prescriber. No follow up with me. I have wished her well. She agrees with the plan. Assessment & Plan (04/28/2023 10:34 AM EST): Not doing well emotionally, r/t recent of one of her sons; also lingering symptoms of RSV. Will not change medications at this time but F/U short term in approx 1 month. Continue Abilify 20 mg daily, Clonazepam 0.5 mg TID, Prazosin 2 mg 3 at bedtime, Venlafaxine XR 150 mg daily. Also gets Gabapentin 100 mg BID per PCP. She will F/U with therapist as usual, and expects to be set up with appt with agency psychiatric prescriber. She agrees with the plan. Assessment & Plan (02/24/2023 12:18 PM EST): Still doing well, with only occasional nightmares, depressive episodes not lasting more than a day or 2, and hallucinations resolved. Continue Abilify 20 mg daily, Clonazepam 0.5 mg TID, Prazosin 2 mg 3 at bedtime, Venlafaxine XR 150 mg daily. Also gets Gabapentin 100 mg BID per PCP. F/U with therapist as usual. Today 02/24/2023 provider informed the pt that I would be retiring within a year or so, and suggest she discuss with her therapist option of referral to agency psychiatric prescriber. Meanwhile, F/U with me in 2 month. She agrees with the plan. Assessment & Plan (12/05/2022 11:34 AM EDT): Again doing better, nightmares and hallucinations resolved. Continue Abilify 20 mg daily, Clonazepam 0.5 mg TID, Prazosin 2 mg 3 at bedtime, Venlafaxine XR 150 mg daily. Also gets Gabapentin 100 mg BID per PCP. F/U with me in 2 month. She agrees with the plan. Assessment & Plan (10/15/2022 12:01 PM EDT): Symptoms have worsened with occasional auditory hallucinations and persistent nightmares. Unclear why she is not doing as well. Pt states she is taking all meds as directed, follows with therapist. Will at this time increase to Abilify 20 mg daily. Continue Clonazepam 0.5 mg TID, Prazosin 2 mg 3 at bedtime, Venlafaxine XR 150 mg daily. Also gets Gabapentin 100 mg BID per PCP. F/U with me in 6 weeks. She agrees with the plan. Assessment & Plan (08/27/2022 10:22 AM EDT): Following with Titi Gray Assessment & Plan (07/04/2022 10:34 AM EDT): Again doing well. Continue current medications. Continue with counseling as usual and F/U with me in 2 months. She agrees with the plan. Assessment & Plan (04/25/2022 12:43 PM EST): Not doing as well with sleep problems and nightmares. Will increase her Prazosin. Stop Prazosin 5 mg at bedtime. Start Prazosin 2 mg 3 capsules at bedtime (total dose 6 mg). Continue other medications. Continue with counseling as usual and F/U with me in 6-8 weeks. She agrees with the plan. Assessment & Plan (03/26/2022 11:04 AM EST): Not doing as well. Seems to be having S/e from Clindamycin of anxiety and sleep problems with nightmares. She has 1 more week to take the Clindamycin and hopefully those symptoms will then improve, so will not change psychiatric medications at this time. Continue with counseling as usual. Neuropathy, cervical 02/13/2018 Hypertension 09/02/2012 Overview (12/16/2022): CDTM since Jan 2022. History of NSTEMI, Anemia (Followed by hematology), Elevtated LFTS, Bariatric surgery in past; drinks 4 in 1 shakes. Followed by endocrine for type I DM ?? Current Therapy: - Amlodipine 10mg daily - Losartan 50mg daily - Carvedilol 6.25mg BID (Cardiology) - Furosemide 20mg daily (Indirect) Prazosin 2mg (3 capsules) daily (HS) (TDD: 6 mg) Assessment & Plan (05/04/2024 10:19 AM EST): Patient is here for a f/u BP controlled She is on a regimen of: Amlodipine 10 mg po daily, Carvedilol 6.25 mg po BID per Cardiology, Furosemide 20 mg daily , Losartan 100 mg po daily and Prazosin 6 mg po daily () Plan: Continue current regimen Most recent electrolytes, done on: Lab Results Component Value Date NA 138 02/17/2024 NA 138 10/16/2023 K 4.2 02/17/2024 K 4.5 10/16/2023 CL 104 02/17/2024 CL 102 10/16/2023 BUN 18 (H) 02/17/2024 BUN 29 (H) 10/16/2023 CREATININE 1.23 02/17/2024 CREATININE 1.16 10/16/2023 patient advised to adhere to a low sodium diet, encouraged about medication compliance, counseled about weight loss. F/U 3 months Assessment & Plan (07/24/2023 11:03 AM EDT): Patient is here for a f/u BP improved She is on a regimen of: Amlodipine 10 mg po daily, Carvedilol 6.25 mg po BID per Cardiology, Furosemide 20 mg daily , Losartan 100 mg po daily and Prazosin 6 mg po daily () Plan: Continue current regimen Most recent electrolytes, done on: 05/15/2023 were wnl. patient advised to adhere to a low sodium diet, encouraged about medication compliance, counseled about weight loss. F/U 3 months Assessment & Plan (06/12/2023 11:39 AM EST): Pt is here for a f/u BP uncontrolled She is on a regimen of: Amlodipine 10 mg po daily, Carvedilol 6.25 mg po BID per Cardiology, Furosemide 20 mg daily , Losartan 75 mg po daily and Prazosin 6 mg po daily () Plan: Increase Losartan to 100 mg po daily Most recent electrolytes, done on: 05/15/2023 were wnl. patient advised to adhere to a low sodium diet, encouraged about medication compliance, counseled about weight loss. F/U 3 months Assessment & Plan (12/16/2022 11:33 AM EDT): BP is at goal of less than 140/90 per JNC8 guidelines. F/U in 1 year Assessment & Plan (08/27/2022 10:14 AM EDT): Pt is here for a f/u BP controlled She is on a regimen of: Amlodipine 10 mg po daily, Carvedilol 6.25 mg po BID per Cardiology and Losartan 50 mg po daily and Prazosin 6 mg po daily () Plan: continue current regimen Most recent electrolytes, done on: 11/29/2021 were wnl. patient advised to adhere to a low sodium diet, encouraged about medication compliance, counseled about weight loss. F/U 3 months Assessment & Plan (07/08/2022 11:51 AM EDT): BP is at goal of less than 140/90 per JNC8 guidelines. Slightly elevated today due to course of prednisone and recent viral infection. Continue f/u with cardiology in August. - Follow-up in [facility] in November. Repeat BMP and A1c prior to next visit. - Refill for Losartan 50mg daily ordered Recurrent falls 12/04/2011 Assessment & Plan (05/04/2024 10:21 AM EST): Hx of recurrent falls Walks with a walker Needs a handycap placard Assessment & Plan (07/24/2023 11:08 AM EDT): S/p fall Landed on her right side getting out of bed On exam she has a large ecchymosis right lateral thigh Hip full ROM Discussed safety around the home and help with transfers Plan: Plain films right hip Type 2 diabetes mellitus wit hout complication, with long-term current use of insulin 04/21/1959 Assessment & Plan (05/04/2024 10:23 AM EST): Pt here for a f/u She is under the care of Endocrinology office Vashti Glass [employer], last seen 03/17/2024 and follows with RN as well, last seen 04/2024 She is on: Tresiba 18 units Fiasp 100-151 unit 151-200 4 units 201-250 5 units 250-300 6 year Over 300 70 units She has a VNA at home. Hgb A1c 05/04/2024: 8.9 Eye exam done on: 12/04/[address] Hart referred to retinal specialist Microalbumin checked on: 11/09/2020 was: 0.3 On Losartan 25 mg po daily Plan: Continue current plan as per Endocrinology. Foot check rnot done Pt reports compliance with Asa 81 mg po daily Pt advised to: adhere to diabetic diet check your blood sugars regularly check your feet on a daily basis. Assessment & Plan (01/29/2024 11:33 AM EDT): Pt here for a f/u She is under the care of Textile Conservator Dr Sprague, last seen 12/31/2023 On a regimen of: Tresiba 26 units every morning and Fiasp with correction scale starting at 201-250 mg per dl 13 units 251-300 mg per dL 14 units 301-350 mg/dL 15 units 351-400 mg/dL 16 units More than 400 mg per dL 17 units. She has a VNA at home. Hgb A1c 01/29/2024 : 7.9 Eye exam done on: 12/04/[address] Hart referred to retinal specialist Microalbumin checked on: 11/09/2020 was: 0.3 On Losartan 25 mg po daily Plan: Continue current plan as per Endocrinology, No changes today Foot check rnot done Pt reports compliance with Asa 81 mg po daily Pt advised to: adhere to diabetic diet check your blood sugars regularly check your feet on a daily basis. Assessment & Plan (10/21/2023 10:17 AM EDT): Pt here for a f/u She is under the care of Textile Conservator Dr Sprague, last seen 10/16/2023 On a regimen of: Tresiba 26 units every morning and Fiasp with correction scale starting at 201-250 mg per dl 13 units 251-300 mg per dL 14 units 301-350 mg/dL 15 units 351-400 mg/dL 16 units More than 400 mg per dL 17 units. She has a VNA at home. Hgb A1c 10/21/2023 : 7.9 Eye exam done on: 12/04/[address] Hart referred to retinal specialist Microalbumin checked on: 11/09/2020 was: 0.3 On Losartan 25 mg po daily Plan: Continue current plan as per Endocrinology, No changes today Foot check rnot done Pt reports compliance with Asa 81 mg po daily Pt advised to: adhere to diabetic diet check your blood sugars regularly check your feet on a daily basis. Assessment & Plan (06/12/2023 11:44 AM EST): Pt here for a f/u She is under the care of Textile Conservator Dr Sprague, has a follow up with him On a regimen of: Tresiba 26 units every morning and Fiasp with correction scale starting at 201-250 mg per dl 13 units 251-300 mg per dL 14 units 301-350 mg/dL 15 units 351-400 mg/dL 16 units More than 400 mg per dL 17 units. She has a VNA at home. Hgb A1c 06/12/2023 : 9.1 Eye exam done on: 12/04/[address] Hart referred to retinal specialist Microalbumin checked on: 11/09/2020 was: 0.3 Started on Losartan 25 mg po daily Plan: Continue current plan as per Endocrinology, No changes today Foot check rnot done Pt reports compliance with Asa 81 mg po daily Pt advised to: adhere to diabetic diet check your blood sugars regularly check your feet on a daily basis. Assessment & Plan (05/01/2023 2:13 PM EST): Probably uncontrolled, worsened due to bronchitis and PRD use No change in meds She has appt with endocrinology for next month. Assessment & Plan (08/27/2022 10:31 AM EDT): Pt here for a f/u She is under the care of Textile Conservator Dr Sprague, has a follow up at the end of August On a regimen of: Tresiba 22 units every morning and Fiasp 13 units before each meal and 2 units before protein shakes. with correction scale starting at 200-275 mg per dL 2 units 276-350 mg/dL 3 units 351-425 mg/dL 4 units More than 425 mg per dL 5 units. She has a VNA at home. Hgb A1c 08/27/2022: 9.4 Eye exam done on: 12/04/[address] Hart referred to retinal specialist Microalbumin checked on: 11/09/2020 was: 0.3 Started on Losartan 25 mg po daily Plan: Continue current plan as per Endocrinology, No changes today Foot check rnot done Pt reports compliance with Asa 81 mg po daily Pt advised to: adhere to diabetic diet check your blood sugars regularly check your feet on a daily basis. Eczema 04/21/1959 Fibromyalgia 04/21/1959 Assessment & Plan (05/01/2023 2:16 PM EST): Exacerbated sp bronchitis. Continue P home PT Recommended acupuncture Clinic. Will rx a bedside comode for food, I recommended against eating in bed Unless physically imposible. She's Aware that insurance may not cover this equipment. FU with PCP Assessment & Plan (08/27/2022 10:18 AM EDT): Pt has a hx of chronic pain nearly all tender points positive. She was referred to Dr. Manjinder Gonsales at [facility] as her medical insurance recommended this referral. Pt no longer seeing her Pt tells me she was taking gabapentin and that was effective but no longer on it will repeat BUn and Cr and dose accordingly Hyperlipidemia 04/21/1959 Assessment & Plan (05/04/2024 10:20 AM EST): Pt with elevated lipids Most recent lipid profile from: Lab Results Component Value Date TRIG 74 10/31/2023 TRIG 89 07/02/2023 CHOL 95 10/31/2023 CHOL 125 07/02/2023 LDLCHOLCAL 43 10/31/2023 LDLCHOLCAL 62 07/02/2023 HDL 38 (L) 10/31/2023 HDL 46 07/02/2023 she is NO LONGER on Lipitor 80 mg po daily and Fish Oil 1000 mg po daily Repeat LFTs 11/29/2021 back to normal. previous elevation of her LFTs likely related to Statin Repeat LFTs 02/17/2024 back to normal Assessment & Plan (06/12/2023 11:33 AM EST): Pt with elevated lipids Most recent lipid profile from: 09/17/2022 Component Ref Range & Units 8 mo ago 1 yr ago 2 yr ago Cholesterol, Total <200 mg/dL 176 177 104 HDL Cholesterol > OR = 50 mg/dL 42 Low 48 Low 41 Low Triglycerides <150 mg/dL 189 High 185 High 171 High LDL Cholesterol mg/dL (calc) 104 High 101 High CM 38 CM Comment: Reference range: <100 Desirable range <100 mg/dL for primary prevention; <70 mg/dL for patients with CHD or diabetic patients with > or = 2 CHD risk factors. LDL-C is now calculated using the Susan calculation, which is a validated novel method providing better accuracy than the Friedewald equation in the estimation of LDL-C. Melquiades WALLACE et al. TEN. 2013;310(19): 0104-8076 (http://education.[employer].com/faq/MPC708) Chol/HDLC Ratio <5.0 (calc) 4.2 3.7 2.5 Non-HDL Cholesterol <130 mg/dL (calc) 134 High 129 CM 63 CM she is NO LONGER on Lipitor 80 mg po daily and Fish Oil 1000 mg po daily Repeat LFTs 11/29/2021 back to normal. previous elevation of her LFTs likely related to Statin Repeat LFTs 05/14/2023 back to normal Assessment & Plan (08/27/2022 10:19 AM EDT): Pt with elevated lipids Most recent lipid profile from: 07/17/2021 shows a total cholesterol of: 90 triglycerides of: 51 HDL of: 44 and LDL of: 36 she is NO LONGER on Lipitor 80 mg po daily and Fish Oil 1000 mg po daily Repeat LFTs 11/29/2021 back to normal. previous elevation of her LFTs likely related to Statin Previous visit I asked she HOLD Lipitor, Hepatitits serologies, Liver U/S repeat LFTs in she has yet to do any of this, reminded her of this today advised to try to adhere to a low cholesterol diet, Hypothyroidism 04/21/1959 Assessment & Plan (08/27/2022 10:15 AM EDT): Here for a f/u Most recent TSH 12/19/2021 adequate On Tirosint 88 mcg daily Iron deficiency anemia 04/21/1959 Assessment & Plan (08/27/2022 10:16 AM EDT): Under the care of Dr. Clyde Carrington who thinks her anemia is multi factorial, likely as a result of malabsorption. Pt received a IV iron infusion recently. Has a f/u with her and with GI fro consideration of out pt colonoscopy. Resolved Problems Problem Noted Date Diagnosed Date Resolved Date Sore throat 01/29/2024 05/04/2024 Influenza 01/29/2024 05/04/2024 Assessment & Plan (01/29/2024 4:07 PM EDT): Patient with c/o mild sore throat Rapid Flu test positive Influenza A Plan: Tamiflu 30 mg BID x 5 days given her Cr clearance Concussion with no loss of consciousness 02/13/2018 08/27/2022 Anxiety state 09/24/2011 04/25/2022 Depressive disorder 04/21/1959 04/25/19 Encounters Date Type Department Care Team Description 05/18/2024 Orders Only GENERIC EXTERNAL DATA DEPARTMENT Provider, Generic External Data 05/13/2024 Telephone [facility] [address] [place] [address] Pascual Daly MD Med Refill 05/13/2024 Refill [facility] [address] [facility] [place] [address] Pascual Daly MD Fibromyalgia 05/05/2024 11:30 AM EST Office Visit [facility] AD[facility]ENT[facility] [address] [facility] [place] [address] Ammy Owen, DDS Aphthous ulcer (Primary Dx) 05/04/2024 10:15 AM EST Office Visit [facility] [place] [address] Pascual Daly MD Type 2 diabetes mellitus without complication, with long-term current use of insulin ([facility]) (Primary Dx); Primary hypertension; Mixed hyperlipidemia; Recurrent falls 05/04/2024 Travel 04/27/2024 9:30 AM EST Clinical Support [facility] [address] [place] [address] Amanda Fernández, AALIYAH Closed fracture of multiple ribs of left side with routine healing 04/27/2024 Travel 04/22/2024 Refill [facility] [address] [facility] [place] [address] Pascual Daly MD Mild intermittent asthma without complication 04/19/2024 Telephone [facility] [address] [facility] [place] [address] Pascual Daly MD Chart Prep 04/08/2024 Refill [facility] [address] [facility] [place] [address] Pascual Daly MD Fibromyalgia 03/17/2024 Orders Only GENERIC EXTERNAL DATA DEPARTMENT Provider, Generic External Data 03/16/2024 Refill [facility] [address] [place] [address] Amanda Fernández RN [facility] 03/15/2024 Refill [facility] [address] [place], [place] [phone] Amanda Fernández RN [facility] 03/11/2024 Telephone [facility] [address] [place], [place] [phone] Pascual Daly MD Med Refill 03/05/2024 Refill [facility] [address] [place], [place] [phone] Jefry Chun Benign hypertension; Type 2 diabetes mellitus without complication, with long-term current use of insulin ([facility]) 03/05/2024 Refill [facility] [address] [place], [place] [phone] Pascual Daly MD Type 2 diabetes mellitus without complication, with long-term current use of insulin ([facility]); Benign hypertension 02/19/2024 11:00 AM EDT Nurse Only [facility] [address] [place], [place] [phone] Ivonne Borja LPN Encounter for immunization (Primary Dx) 02/19/2024 Travel 02/18/2024 Orders Only GENERIC EXTERNAL DATA DEPARTMENT Provider, Generic External Data 02/17/2024 Orders Only GENERIC EXTERNAL DATA DEPARTMENT Provider, Generic External Data from Last 3 Months Immunizations Name Administration Dates Next Due Influenza High-dose Quadriva lent Preservative Free 01/20/2022,01/23/2021,12/22/2019 Influenza Quadrivalent Adjuvanted 01/15/2023 Influenza injectable quadriv alent IIV4 with preservative 02/01/2016,01/05/2015 Influenza injectable quadriv alent preservative free 04/06/2019,02/18/2018 Influenza, High Dose Seasona l, Preservative Free 02/19/2024,01/21/2017 Influenza, IIV3, injectable 03/11/2023,1 05/12/2021,02/19/2021,02/01,12/24/2017,03/22/2014,12/31/2010 Influenza, Split (incl. delfina fied surface antigen) 02/27/2015,01/07/2013,05/04/2012 MMR 11/21/1997 Moderna Covid-19 Vaccine 12+ 09/04/2021,07/19/19 21,06/20/2020 Moderna Covid-19 Vaccine 6+ Bivalent 04/18/2022 Pfizer Covid-19 Vaccine 12+ 03/05/2021 Pneumococcal Conjugate PCV 13 04/25/2015 Pneumococcal Conjugate PCV 20 06/12/2023 Pneumococcal Polysaccharide PPSV23 04/25/2015,,07/01/2000 RSV Bivalent 06/12/2023 TD (adult), 2 Lf tetanus tox oid, preservative free, adsorbed 02/22/2003,08/21/1992 Tdap 09/24/2013 Zoster, Recombinant 03/17/2019,01/13/2019 Zoster, live 09/08/2014 Social History Tobacco Use Types Packs/Day Years Used Date Smoking Tobacco: Never Passive Smoke Exposure: Never Smokeless Tobacco: Never Tobacco Cessation:Counseling Given: Not Answered Alcohol Use Standard Drinks/Week Comments Never 0 [...] Orientation Straight 03/26/2022 10 :21 AM EST Last Filed Vital Signs Vital Sign Reading Time Taken Comments Blood Pressure 133/70 05/05/2024 11:28 AM EST Pulse 72 05/05/2024 11:28 AM EST Temperature 36.1 ??C (96.9 ??F) 05/04/2024 10:[address] Respiratory Rate 20 05/04/2024 10:06 AM EST Oxygen Saturation 98% 05/04/2024 10:06 AM EST Inhaled Oxygen Concentration - - Weight 65.9 kg (145 lb 3.2 oz) 05/04/2024 10:06 AM EST Height 149.9 cm (4' 11 ) 05/04/2024 10:06 AM EST Body Mass Index 29.33 05/04/2024 10:06 AM EST Plan of Treatment Upcoming Encounters Date Type Department Care Team (Late st Contact Info) Description 07/22/2024 10:30 AM EDT Clinical Support [facility] [address] [place] [address] Amanda Fernández, RN [address] [place] [address] 08/03/2024 10:00 AM EDT Office Visit [facility] [address] [place] [address] Pascual Daly MD [address] [place] [address] Health Maintenance Due Date Last Done Comments CT Colonography 1950 Dental Oral Exam 1950 Dental Prophylaxis 1950 Dental X-Ray: Bitewings 1950 Dental X-Ray: Full Mouth 1950 FIT DNA/Cologuard 1950 FIT 1950 FOBT 1950 Sigmoidoscopy 1950 Diabetes: Foot Exam 02/08/1960 Eye Exam 02/08/1960 DTaP/Tdap/Td Vaccines (2 - Td or Tdap) 09/25/2023 09/24/2013, 02/22/2003, 08/21/1992 COVID-19 Vaccine ( season) 2023 04/18/2022, 09/04/2021, 03/05/2021, Additional history exists Mammogram 06/05/2024 06/05/2023, 05/2022, 05/23/2022, Additional history exists Diabetes: Urine Protein Screening 07/01/2024 07/02/2023, 01/10/2023, 07/17/2021, Additional history exists SDOH Screening 07/23/2024 07/24/2023 Depression Monitoring (PHQ-9) 07/29/2024 01/29/2024, 01/29/2024 Diabetes: Hemoglobin A1C 08/02/2024 025, 02/17/2024, 01/29/2024, Additional history exists Lipid Panel 10/30/2024 10/31/2023, 06/19, 09/17/2022, Additional history exists Depression Screening 01/28/2025 01/29/2024, 01/29/20 24 Alcohol/Substance Use Screening 05/04/2025 05/04/2024 Tobacco Screening 05/04/2025 05/04/2024 Colonoscopy 03/20/2028 03/20/2018 Colorectal Cancer Screening 03/20/2028 Zoster Vaccines Completed 03/17/2019, 12/21, 09/08/2014 Hepatitis C Screening Completed 01/15/2023 , 01/14/2023, 01/14/2023, Additional history exists Pneumococcal Vaccine: 65+ Years Completed 06/12/2023, 04/25/2015, 04/25/2015, Additional history exists RSV Patients and Patients Aged 60 years or older Completed 06/12/2023 Influenza Vaccine Completed 02/19/2024, , 01/15/2023, Additional history exists HIB Vaccines Aged Out No longer eligi ble based on patient's age to complete this topic HPV Vaccines Aged Out No longer eligi ble based on patient's age to complete this topic Hepatitis A Vaccines Aged Out No long er eligible based on patient's age to complete this topic Hepatitis B Vaccines Aged Out No long er eligible based on patient's age to complete this topic IPV Vaccines Aged Out No longer eligi ble based on patient's age to complete this topic Meningococcal Vaccine Aged Out No padmini josue eligible based on patient's age to complete this topic RSV under 20 months Aged Out No longe r eligible based on patient's age to complete this topic Rotavirus Vaccines Aged Out No longer eligible based on patient's age to complete this topic Goals Goal Patient Goal Type Associated Problems Recent Progress Patient-Stated? Author Blood Pressure < 140/90 Blood Pressure 133/70( 025 11:28 AM EST) No Fani Heck, Woody Procedures Procedure Name Priority Date/Time Associated Diagnosis Comments GLUCOSE, WHOLE BLOOD Routine 05/18/2024 10:17 AM EST ADJUNCTIVE GENERAL SERVICES - PROFESSIONAL VISITS - CASE PRESENTATION, SUBSEQUENT TO DETAILED AND EXTENSIVE TREATMENT PLANNING Routine 05/05/2024 11:30 AM EST Aphthous ulcer ADJUNCTIVE GENERAL SERVICES - UNCLASSIFIED TREATMENT - PALLIATIVE TREATMENT OF DENTAL PAIN - PER VISIT Routine 05/05/2024 11:30 AM EST Aphthous ulcer POCT GLUCOSE Routine 05/04/2024 10:16 AM EST Type 2 diabetes mellitus without complication, with long-term current use of insulin ([facility]) POCT GLYCATED HEMOGLOBIN, TOTAL Routine 05/04/2024 10:16 AM EST Type 2 diabetes mellitus without complication, with long-term current use of insulin ([facility]) POCT HEATHER-14 URINE DRUG SCREEN Routine 04/27/2024 9:44 AM EST Closed fracture of multiple ribs of left side with routine healing GLUCOSE, WHOLE BLOOD Routine 03/17/2024 9:50 AM EST GLUCOSE, WHOLE BLOOD Routine 02/18/2024 10:30 AM EDT VITAMIN A Routine 02/17/2024 10:20 AM EDT VITAMIN B1 Routine 02/17/2024 10:20 AM EDT ZINC Routine 02/17/2024 10:20 AM EDT T4, FREE Routine 02/17/2024 10:20 AM EDT VITAMIN B12/FOLATE, SERUM PANEL Routine 02/17/2024 10:20 AM EDT INSULIN Routine 02/17/2024 10:20 AM EDT TSH W/REFLEX TO FT4 Routine 02/17/2024 1 0:20 AM EDT VITAMIN D,25-OH,TOTAL,IA Routine 02/17/2024 10:20 AM EDT C-REACTIVE PROTEIN Routine 02/17/2024 10 :20 AM EDT COMPREHENSIVE METABOLIC PANEL Routine 02/17/2024 10:20 AM EDT SED RATE BY MODIFIED WESTERGREN Routine 02/17/2024 10:20 AM EDT HEMOGLOBIN A1C Routine 02/17/2024 10:20 AM EDT CBC WITH AUTO DIFFERENTIAL Routine 02/17/2024 10:20 AM EDT LIPID PANEL, STANDARD Routine 10/31/2023 10:42 AM EDT ALBUMIN, RANDOM URINE W/CREATININE Routine 07/02/2023 10:06 AM EDT BI MAMMOGRAM SCREENING TOMOSYNTHESIS BILATERAL Routine 06/05/2023 11:00 AM EST HEPATITIS C VIRAL RNA GENOTYPE, LIPA Routine 01/15/2023 11:08 AM EDT HM COLONOSCOPY Routine 03/20/2018 from Last 3 Months or Most Recently Relevant to Health Maintenance Results * (ABNORMAL) Glucose, Whole Blood (05/18/2024 10:17 AM EST) Only the most recent of3 resultswithin the time period is included. Glucose, Whole Blood 260(H) 60 - 115 mg/dL [facility] Comment:METER #: [id number] Testing performed in the Endocrinology Department [address] , [address], [facility]. 05/18/2024 10:1 7 AM EST 05/18/2024 10:22 AM EST Generic External Data Provider LAB BLOOD ORDERAB LES Final Result Performing Organization Address City/State/[facility] Co de Phone Number [facility] [address] [place] [phone] * (ABNORMAL) POCT HGB A1C (05/04/2024 10:16 AM EST) Pathologist [facility] Hemoglobin A1C 8.9(A) 4.0 - 6.0 % QC Media Lot # [id number] Lot# Expiration Date Blood 05/04/2024 10:1 6 AM EST Pascual Terry MD POINT OF CARE TEST ENTER/EDIT ORDERABLES Edited Result - Final * (ABNORMAL) POCT Glucose (05/04/2024 10:16 AM EST) Pathologist [facility] Glucose Blood, POC 270(A) 60 - 200 mg/dL QC Media Lot # [id number] Lot# Expiration Date 025 Blood Capillary blood specimen / Unknown 05/04/2024 10:16 AM EST Pascual Terry MD POINT OF CARE TEST EN TER/EDIT ORDERABLES Final Result * POCT HEATHER-14 Urine Drug Screen (04/27/2024 9:44 AM EST) Pathologist [facility] Oxycodone Screen, Urine Positive Urine Urine specimen obtained by clean catch procedure / Unknown 04/27/2024 9:44 AM EST Narrative Pradeep Amanda, RN - 04/27/2024 9:44 AM EST Lot# [id number] Exp: 03-27-25 Pascual Terry MD POINT OF CARE TEST EN TER/EDIT ORDERABLES Final Result * Vitamin D, 25-Hydroxy, Total, Immunoassay (02/17/2024 10:20 AM EDT) Vitamin D 25-OH Total 51.7 >30 ng/mL [facility] Comment:Health Based Referen ce Values*< 20 ng/mL [id number] ng/mL Insufficient> 30 ng/mL Sufficient*Dione TUCKER. N Engl J Med. 2007;357:266-280Care must be taken in interpreting Vitamin D results fromdifferent laboratories and methodologies. Published datademonstrated that results from patients undergoinghemodialysis may show a negative bias when tested withvarious automated 25-OH vitamin D assays when compared toLC-MS/MS.When testing samples from patients whose predominant form ofVitamin D is Vitamin D2, such as patients receiving VitaminD2 supplementation, results that are subtherapeutic shouldbe confirmed with another method such as LC-MS/MS. 02/17/2024 10:2 0 AM EDT 02/17/2024 10:20 AM EDT us Generic External Data Provider LAB BLOOD ORDERAB LES Final Result [facility] [address] [place] [phone] * (ABNORMAL) Vitamin B12 (Cobalamin) and Folate Panel, Serum (02/17/2024 10:20 AM EDT) Vitamin B12 908(H) 200 - 900 pg/mL [facility] Comment:NORMAL 200-900 PG/ML INDETERMINATE 160-199 PG/ML DEFICIENT < 160 PG/ML Folate >20.0 > or = 4.0 ng/mL [facility] Comment:Reference Values:> o r = 4.0 ng/mL< 4.0 ng/mL suggests folate deficiency Methotrexate, aminopterin and folinic acid(leucovorin) are chemotherapeutic agents whose molecularstructures are similar to folate; therefore, the Architectfolate assay cannot be used for patients using these drugs. 02/17/2024 10:2 0 AM EDT 02/17/2024 10:20 AM EDT Generic External Data Provider LAB BLOOD ORDERAB LES Final Result Performing Organization Address [facility] Co de Phone Number [facility] [address] [place] [phone] * (ABNORMAL) TSH with Reflex to Free T4 (02/17/2024 10:20 AM EDT) TSH reflex Free T4 0.30(L) 0.32 - 4.0 uIU/mL [facility] 02/17/2024 10:2 0 AM EDT 02/17/2024 10:20 AM EDT Generic External Data Provider LAB BLOOD ORDERAB LES Final Result Performing Organization Address [facility] Co de Phone Number [facility] [address] [place] [phone] * (ABNORMAL) CBC auto differential (02/17/2024 10:20 AM EDT) White Blood Count 7.1 4.8 - 10.8 X10*3/uL [facility] Red Blood Count 3.85(L) 4.20 - 5.50 X10*6/uL [facility] Hemoglobin 10.6(L) 12.0 - 16.0 g/dl [facility] Hematocrit 33.5(L) 37.0 - 47.0 % [facility] Mean Corpuscular Volume 87.0 80.0 - 98.0 fL [facility] Mean Corpuscular Hemoglobin 27.5 27.0 - 33.0 pg [facility] Mean Corpuscular HGB Conc 31.6 31.0 - 35.0 g/dl [facility] Red Cell Distribution Width 14.9 11.0 - 16.0 % [facility] Platelet Count 188 160 - 400 X10*3/uL [facility] Mean Platelet Volume 11.4 9.4 - 12.3 fL [facility] Neutrophils Percent Auto 43.1(L) 45 - 73 % [facility] Imm Gran Pct Auto 0.6(H) 0.0 - 0.4 % [facility] Lymphocytes Percent Auto 29.9 20 - 40 % [facility] Monocytes Percent Auto 7.3 2 - 11 % [facility] Eosinophils Percent Auto 18.0(H) 0 - 4 % [facility] Basophils Percent Auto 1.1 0 - 2 % [facility] NRBC Pct Auto 0.0 0.0 - 0.2 /100WBC [facility] Neutrophils Absolute Auto 3.1 2.0 - 8.3 x10*3/uL [facility] Imm Gran Abs Auto 0.04(H) 0.00 - 0.03 X10*3/uL [facility] Lymphocytes Absolute Auto 2.1 1.2 - 4.9 X10*3/uL [facility] Monocytes Absolute Auto 0.5 0.1 - 1.2 X10*3/uL [facility] Eosinophils Absolute Auto 1.3(H) 0.0 - 0.4 X10*3/uL [facility] Basophils Absolute Auto 0.1 0.0 - 0.2 X10*3/uL [facility] NRBC Abs Auto 0.000 0.0 - 0.012 X10*3/uL [facility] 02/17/2024 10:2 0 AM EDT 02/17/2024 10:20 AM EDT us Generic External Data Provider LAB BLOOD ORDERAB LES Final Result [facility] [address] [place] [phone] * (ABNORMAL) Insulin (02/17/2024 10:20 AM EDT) Insulin 129(H) 2 - 29 uU/mL [facility] Comment:This test was perfor med using the Gillis chemiluminescentmethod. Values obtained from different assay methods cannot beused interchangeably. This insulin assay shows a possiblecross-reactivity with antibodies generated against insulin(immunoreactive insulin and some patients treated withbovine or porcine insulin). Insulin levels may be measuredlower in patients with insulin autoimmune syndrome orfamilial high pro-insulinemia. 02/17/2024 10:2 0 AM EDT 02/17/2024 10:20 AM EDT us Generic External Data Provider LAB BLOOD ORDERAB LES Final Result Performing Organization Address [facility] Co de Phone Number [facility] [address] [place] [address] [phone] * (ABNORMAL) Zinc (02/17/2024 10:20 AM EDT) Zinc 58(A) 60 - 130 mcg/dL [facility] Comment:This test was develo ped and its analytical performancecharacteristics have been determined by [facility] [place], [place]. It hasnot been cleared or approved by the U.S. Food and DrugAdministration. This assay has been validated pursuantto the CLIA regulations and is used for clinicalpurposes.THIS TEST WAS PERFORMED AT:[id number] [place] [id number] CORDON MD,PHD 02/17/2024 10:2 0 AM EDT 02/17/2024 10:20 AM EDT us Generic External Data Provider LAB BLOOD ORDERAB LES Final Result Performing Organization Address [facility] Co de Phone Number [facility] [address] [place] [phone] * Vitamin A (02/17/2024 10:20 AM EDT) Pathologist [facility] Vitamin A (Retinol) 64 38 - 98 mcg/dL [facility] Comment:Vitamin supplementat ion within 24 hours prior toblood draw may affect the accuracy of the results.This test was developed and its analytical performancecharacteristics have been determined by [facility] [place], [place]. It hasnot been cleared or approved by the U.S. Food and DrugAdministration. This assay has been validated pursuantto the CLIA regulations and is used for clinicalpurposes.THIS TEST WAS PERFORMED AT:[id number] [place] [id number] CORDON MD,PHD 02/17/2024 10:2 0 AM EDT 02/17/2024 10:20 AM EDT Generic External Data Provider LAB BLOOD ORDERAB LES Final Result [facility] [address] [place] [phone] * Sed Rate by Modified Leightonergren (02/17/2024 10:20 AM EDT) [facility] Erythrocyte Sedimentation Rate 2 0 - 20 MM/HR [facility] Comment:Patients with polycy themia and many hemoglobin abnormalitiesmay have depressed sed rates whereas patients with anemiamay have elevated sed rates. 02/17/2024 10:2 0 AM EDT 02/17/2024 10:20 AM EDT us Generic External Data Provider LAB BLOOD ORDERAB LES Final Result Performing Organization Address City/[facility]/ZIP Co de Phone Number [facility] [address] [place] [phone] * C-reactive Protein (02/17/2024 10:20 AM EDT) C Reactive Protein 0.18 < or = 0.50 mg/dL [facility] 02/17/2024 10:2 0 AM EDT 02/17/2024 10:20 AM EDT Generic External Data Provider LAB BLOOD ORDERAB LES Final Result Performing Organization Address [facility] de Phone Number [facility] [address] [place] [phone] * T4, Free (02/17/2024 10:20 AM EDT) Pathologist [facility] Free T4 (Free Thyroxine) 1.34 0.71 - 1.85 ng/dL [facility] 02/17/2024 10:2 0 AM EDT 02/17/2024 10:20 AM EDT Generic External Data Provider LAB BLOOD ORDERAB LES Final Result Performing Organization Address [facility] de Phone Number [facility] [address] [place] [phone] * Vitamin B1 (02/17/2024 10:20 AM EDT) Pathologist [facility] Vitamin B1 30 8 - 30 nmol/L [facility] Comment:Vitamin supplementat ion within 24 hours prior toblood draw may affect the accuracy of the results.This test was developed and its analytical performancecharacteristics have been determined by [facility] [place], [place]. It hasnot been cleared or approved by the U.S. Food and DrugAdministration. This assay has been validated pursuantto the CLIA regulations and is used for clinicalpurposes.THIS TEST WAS PERFORMED AT:[id number] [place] [address]ZIDSDVUJOHN CORDON MD,PHD 02/17/2024 10:2 0 AM EDT 02/17/2024 10:20 AM EDT Generic External Data Provider LAB BLOOD ORDERAB LES Final Result Performing Organization Address [facility]/ZIP Co de Phone Number [facility] [address] [place] [phone] * (ABNORMAL) Hemoglobin A1c (02/17/2024 10:20 AM EDT) Hemoglobin A1c 7.9(H) <6.0 % [facility] Comment:Hemoglobin A1C Refer ence Range Adults: 4.8 - 6.0 % Non diabetic: < 6.0 % Goal: < 7.0 %Additional Action Suggested: > 8.0 %Note: Hemoglobin A1c results are invalid for patients with abnormal amounts of HbF. Blood transfusions may impact the HbA1c concentration in the patient sample. Estimated Average Glucose 180 mg/dL [facility] Comment:eAG = Estimated ave rage glucose which is %A1C expressed asaverage glucose, using the formula of the [id number] Glucose study (ADAG), Diabetes Care, Vol.31,#8,Nov. 2007 02/17/2024 10:2 0 AM EDT 02/17/2024 10:20 AM EDT Generic External Data Provider LAB BLOOD ORDERAB LES Final Result Performing Organization Address [facility] de Phone Number [facility] [address] [place] [phone] * (ABNORMAL) Comprehensive Metabolic Panel (02/17/2024 10:20 AM EDT) Sodium 138 135 - 145 mmol/L [facility] Potassium 4.2 3.3 - 5.1 mmol/L [facility] Chloride 104 96 - 108 mmol/L [facility] Carbon Dioxide 25 22 - 29 mmol/L [facility] Anion Gap 13 12 - 20 [facility] Urea Nitrogen (BUN) 18(H) 9 - 16 mg/dL [facility] Creatinine, Serum 1.23 0.5 - 1.4 mg/dL [facility] Estimated Glomerular Filt Rate 43 [facility] Comment:NOTE: For -Am erican individuals, multiply the result by 1.210.Chronic Kidney Disease: Estimated GFR < 60 mL/min/1.97l4Hwaxfm Kidney Disease: Estimated GFR < 15 mL/min/1.73m2 Glucose 377(HH) 60 - 115 mg/dL [facility] Comment:Critical value for t est(s):GLU Results called to and readback by:DR YOU OLMEDO Person calling:RAJVDate:02/17/2024 Time:13:35 Calcium 8.7 8.4 - 10.2 mg/dL [facility] Bilirubin, Total 0.3 0.0 - 1.0 mg/dL [facility] Aspartate Amino Transferase 30 5 - 31 U/L [facility] Alanine Aminotransferase 38(H) 0 - 31 U/L [facility] Total Protein 5.6(L) 6.5 - 8.0 g/dL [facility] Albumin Level 3.6 3.5 - 5.0 g/dL [facility] Alkaline Phosphatase 70 39 - 117 U/L [facility] 02/17/2024 10:2 0 AM EDT 02/17/2024 10:20 AM EDT us Generic External Data Provider LAB BLOOD ORDERAB LES Final Result [facility] [address] [place] [phone] * (ABNORMAL) Lipid Panel, Standard (10/31/2023 10:42 AM EDT) Triglycerides 74 <150 mg/dL [facility] Comment:Desirable Triglyceri de: less than 150 mg/dLBorderline High Triglyceride 150-199 mg/dLHigh Triglyceride: 200-499 mg/dLVery High Triglyceride: greater than or equal to 5OO mg/dL Cholesterol 95 <200 mg/dL [facility] Comment:Desirable Cholestero l: less than 200 mg/dLBorderline High Cholesterol: 200-239 mg/dLHigh Cholesterol: greater than 239 mg/dL LDL Cholesterol Calculated 43 <100 mg/dL [facility] Comment:Desirable LDL: less than 100 mg/dLNear Optimal/Above Optimal LDL: 110- 129 mg/dLBorderline High LDL: 130-159 mg/dLHigh LDL: 160-189 mg/dLVery High LDL: greater than or equal to 190 mg/dL HDL Cholesterol 38(L) >40 mg/dL [facility] Comment:Desirable HDL: great er than 40 mg/dL Note: This HDL assay may give artificially low results in patients with liver disease. 10/31/2023 10:4 2 AM EDT 10/31/2023 10:42 AM EDT us Generic External Data Provider LAB BLOOD ORDERAB LES Final Result Performing Organization Address [facility] Co de Phone Number [facility] [address] [place] [address] [phone] * (ABNORMAL) Albumin, Random Urine W/Creatinine (07/02/2023 10:06 AM EDT) Creatinine, Urine 163.81 mg/dL [facility] Microalbumin Urine 59.0 mg/L [facility] Microalbum Creatinine Ratio Ur 36.0(H) <30 ug/mg cr [facility] Comment:Albumin/Creatinine R atio Reference Ranges: Normal: < 30 ug/mg creatinine Microalbuminuria: 30 - 300 ug/mg creatinineClinical Albuminuria: > 300 ug/mg creatinine 07/02/2023 10:0 6 AM EDT 07/02/2023 11:41 AM EDT us Generic External Data Provider LAB URINE ORDERAB LES Final Result Performing Organization Address [facility]/ZIP Co de Phone Number [facility] [address] [place] [phone] * BI Mammogram Screening Tomosynthesis Bilateral (06/05/2023 11:00 AM EST) Anatomical Region Laterality Modality Breast Bilateral Mammography 06/05/2023 11:0 0 AM EST Narrative 07/01/2023 11:45 AM EDT ? [facility] ? [address] ?[place] [address] ? Mammography Report ? Signed ? Patient: Max,Brandie ?MR#: [id number] ? : 1950 ?Acct:[id number] ? Age/Sex: 73 / F ?ADM Date: 06/05/23 ? Loc: HO.MAMMO ? Attending Dr: Briseida Rocha MD ? Ordering Physician: Briseida Rocha MD ?Results: 1Negat ?? juaquin ? Date of Service: 06/05/23 ?Follow Up: 1 Year From Orig ?? inal Mammogram ? Procedure(s): MM tomosynthesis screening BI ?? Accession Number(s): [id number] ? cc: Pascual Darnell MD; Briseida Rocha MD ? EXAMINATION: ?? MM SCREENING DIGITAL BREAST TOMOSYNTHESIS, BILATERAL ? CLINICAL INFORMATION: ? Screening. Asymptomatic. ? COMPARISON: ?? Mammography: This study is compared with prior exams dating back to ?? 2019. ? TECHNIQUE: ?? Digital breast tomosynthesis is performed in both the craniocaudal and ?? mediolateral oblique views along with computer-aided detection (CAD). ?? Synthesized 2D images are generated from the tomosynthesis. ? FINDINGS: ?? The breasts are heterogeneously dense, which may obscure small masses ?? (ACR BI-RADS breast composition Category c). ? There are no significant masses, abnormal calcifications, or other ?? abnormalities. ?? There are unchanged, bilateral benign calcifications in each breast. ? MM/MM tomosynthesis screening BI ?? IMPRESSION: ?? No mammographic evidence of malignancy. ? ASSESSMENT: ? BI-RADS BI-RADS 1 - Negative ? RECOMMENDATION: ?? Routine annual mammography screening. ? 1 year F/U ? This examination should not preclude the clinical evaluation of a ?? suspicious palpable abnormality. ? This patient's information was entered into a reminder system with a ?? target due date for their next mammogram. ? Dictated By: ?Sindhu Dacosta MD ? Signed By: ?<Electronically signed by Sindhu Dacosta MD in OV> ? 07/01/23 1141 ? DD/ 1100 ? TD/TT: ? [employer] Crew Leader: ? Procedure Note Aparnaheidi, Image - 07/01/2023 [place] [facility] [address] [place] [address] Mammography Report Signed Patient: Dino Santana#: [id number] : 1950Acct:[id number] Age/Sex: 73 / FADM Date: 06/05/23 Loc: HO.MAMMO Attending Dr: Briseida Rocha MD Ordering Physician: Briseida Rocha MDResults: 1Negat juaquin Date of Service: 06/05/23Follow Up: 1 Year From Orig inal Mammogram Procedure(s): MM tomosynthesis screening BI Accession Number(s): [id number] cc: Pascual Darnell MD; Briseida Rocha MD EXAMINATION: MM SCREENING DIGITAL BREAST TOMOSYNTHESIS, BILATERAL CLINICAL INFORMATION: Screening. Asymptomatic. COMPARISON: Mammography: This study is compared with prior exams dating back to 2019. TECHNIQUE: Digital breast tomosynthesis is performed in both the craniocaudal and mediolateral oblique views along with computer-aided detection (CAD). Synthesized 2D images are generated from the tomosynthesis. FINDINGS: The breasts are heterogeneously dense, which may obscure small masses (ACR BI-RADS breast composition Category c). There are no significant masses, abnormal calcifications, or other abnormalities. There are unchanged, bilateral benign calcifications in each breast. MM/MM tomosynthesis screening BI IMPRESSION: No mammographic evidence of malignancy. ASSESSMENT: BI-RADS BI-RADS 1 - Negative RECOMMENDATION: Routine annual mammography screening. 1 year F/U This examination should not preclude the clinical evaluation of a suspicious palpable abnormality. This patient's information was entered into a reminder system with a target due date for their next mammogram. Dictated By: Sindhu Dacosta MD Signed By: <Electronically signed by Sindhu Dacosta MD in OV> 07/01/23 1141 DD/ 1100 TD/TT: [employer]stabout Crew Leader: [facility] External Provider IMG BI PROCEDURES Final Result * Hepatitis C Viral RNA, Genotype, LiPA (01/15/2023 11:08 AM EDT) Hepatitis C Genotype Not Detected [facility] Comment: Genotype not detected due to low or no viral load,mutations in viral genome at assay priming sites,presence of inhibitory substance, or other assayrelated factors. Viral load of >=300 IU/mL is requiredfor testing. If this patient has a known concurrentviral load >=300 IU/mL, contact client services forverification.The method used in this test is RT-PCR and reversehybridization (Line Probe) of the 5' UTR and coreregion of the HCV genome.The analytical performance characteristics of thisassay have been determined by [employer], [place]. ??The modificationshave not been cleared or approved by the FDA. ??Thisassay has been validated pursuant to the CLIAregulations and is used for clinical purposes.For additional information, please refer tohttp://education.TRData/faq/HCVGenotyping(This link is being provided for informational/educational purposes only.)THIS TEST WAS PERFORMED AT:[id number] [place] [address]JBBQDPSJOHN CORDON MD,PHD 01/15/2023 11:0 8 AM EDT 01/15/2023 11:08 AM EDT [facility] External Provider LAB BLO OD ORDERABLES Final Result [facility] [address] [place] [phone] * Colonoscopy (03/20/2018) Colonoscopy Normal Normal 03/20/2018 Narrative Sondra Rowe - 03/20/2018 9:09 AM EST Recommended 10 year follow up Historical Provider HEALTH MAINTENANCE Edited Result - Final from Last 3 Months or Most Recently Relevant to Health Maintenance Insurance [facility] [place] [facility] - [facility] Care Teams Ware Dresser Relationship Specialty Start Date End Date Pascual Daly MD [address] [place] [address] PCP - General Internal Medicine 02/22/14 Fani Heck PharmD [address] [place] [address] Pharmacist Internal Medicine 12/16/22
--- OUTSIDE RECORDS SUMMARY | 2024-05-18 10:53 | XMS_ITS | Encounter Summary ---
Author Organization [employer] Address [address] [facility] 7t [place] [address] Care Team Providers Care Tank Processor Name Role Phone Pascual Daly MD Primary Care Provide r Fani Heck PharmD Unavailable [phone] Reason for Visit * Reason Comments controlled substance treatment Encounter Details Date Type Department Care Team (Latest Contact Info) Description 04/27/2024 9:30 AM EST Clinical Support [facility] [address] [place] [address] Amanda Fernández, RN [address] [place] [address] Closed fracture of multiple ribs of left side with routine healing Social History Tobacco Use Types Packs/Day Years [...] AM EST documented as of this encounter Progress Notes * Amanda Fernández RN - 04/27/2024 9:30 AM EST S: BIOLOGICAL SCIENCE TECHNICIAN FISH RV. Patient here with UNATTENDED GROUND SENSOR SPECIALIST, Gabriela. Prescribed Oxycodone 5mg bid PRN. States has been takingas prescribed. Denies nicotine/ETOH/illicit drugs use. Currently rates pain a 6/10 and states medication is 80% effective at alleviating pain. Current pain sites are L shoulder, knees, upper back/neck. BIOLOGICAL SCIENCE TECHNICIAN FISH Agreement renewed today. O: BIOLOGICAL SCIENCE TECHNICIAN FISH Tier 4. DISPLAY DESIGNER verified today. Rx last filled 04/13/24. Patient has 45 pills remaining, 27 expected. Last PCP visit was 01/29/24. BPI updated today. Pain severity score of (5), activity interference score of (7). Utox performed, positive for OXY. Utox as expected. .Fentanyl testing: negative Lot# [id number] Exp: 04-04-25 A: BIOLOGICAL SCIENCE TECHNICIAN FISH Agreement Revisit: Opioid dependence related to chronic pain. P: Patient to continue taking medication only as prescribed; Next BIOLOGICAL SCIENCE TECHNICIAN FISH RV appointment scheduled for07/09/24 @ 11am. F/u with PCP 05/04/24. F/U sooner PRN. Reminder slip given. Patient verbalized understanding and agreed to plan. documented in this encounter Plan of Treatment Upcoming Encounters Date Type Department Care Team (Late st Contact Info) Description 07/22/2024 10:30 AM EDT Clinical Support [facility] [address] [place] [address] Amanda Fernández RN [address] [place] [address] 08/03/2024 10:00 AM EDT Office Visit [facility] [address] [place] [address] Pascual Daly MD [address] [place] [address] documented as of this encounter Goals Goal Patient Goal Type Associated Problems Recent Progress Patient-Stated? Author Blood Pressure < 140/90 Blood Pressure 133/70( 025 11:28 AM EST) No Fani Heck, PharmD documented as of this encounter Procedures Procedure Name Priority Date/Time Associated Diagnosis Comments POCT HEATHER-14 URINE DRUG SCREEN Routine 04/27/2024 9:44 AM EST Closed fracture of multiple ribs of left side with routine healing documented in this encounter Results * POCT HEATHER-14 Urine Drug Screen (04/27/2024 9:44 AM EST) Oxycodone Screen, Urine Positive Urine Urine specimen obtained by clean catch procedure / Unknown 04/27/2024 9:44 AM EST Narrative Amanda Fernández RN - 04/27/2024 9:44 AM EST Lot# [id number] Exp: 03-27-25 us Pascual Terry MD POINT OF CARE TEST EN TER/EDIT ORDERABLES Final Result documented in this encounter Visit Diagnoses Diagnosis Closed fracture of multiple ribs of left side with routine healing documented in this encounter Additional Health Concerns Assessment Noted Time PHQ-9 Depression Total Score: 9 01/29/20 24 11:00 AM EDT documented as of this encounter Care Teams Tank Processor Relationship Specialty Start Date End Date Pascual Daly MD [address] [place] [address] PCP - General Internal Medicine 02/22/14 Fani Heck PharmD [address] [place] [address] Pharmacist Internal Medicine 12/16/22 documented as of this encounter
--- OUTSIDE RECORDS SUMMARY | 2024-05-18 10:53 | XMS_ITS | Encounter Summary ---
Author Organization [employer] Address [address] [facility] 7t [place] [address] Care Team Providers Care Supervisor Fish Bait Processing Name Role Phone Pascual Daly MD Primary Care Provide r Fani Heck PharmD Unavailable [phone] Reason for Visit * Reason Onset Date Comments ER Follow-up 10/28/2023 Encounter Details Date Type Department Care Team ([facility] st Contact Info) Description 10/28/2023 Telephone [facility] [address] [place] [address] Pascual Daly MD [address] [place], [place] [phone] ER Follow-up Social History Tobacco Use Types Packs/Day Years [...] encounter Miscellaneous Notes * Telephone Encounter - Agusto Arellano RN - 10/31/2023 10:26 AM EDT T/C to [phone] and [phone] through [employer] [place]Pictorious id - [id number] for status check and toschedule ED follow up apt. No answer. LVM to call back on [phone]. * Telephone Encounter - Ad Toure - 10/28/2023 2:55 PM EDT Patient calling to report ED visit on : Date: 10/27/23 Hospital: [facility] Seen for: low sugars Patient advised will forward to team nurse for follow up. Please contact at [phone] documented in this encounter Plan of Treatment Upcoming Encounters Date Type Department Care Team ([facility] st Contact Info) Description 07/22/2024 10:30 AM EDT Clinical Support [facility] [address] [place] [address] Amanda Fernández, RN [address] [place] [address] 08/03/2024 10:00 AM EDT Office Visit [facility] [address] [place] [address] Pascual Daly MD [address] [place] [address] documented as of this encounter Goals Goal [...] documented as of this encounter Care Teams Supervisor Fish Bait Processing Relationship Specialty Start Date End Date Pascual Daly MD [address] [place] [phone] PCP - General Internal Medicine 02/22/14 Fani Heck, PharmD [address] [place] [address] Pharmacist Internal Medicine 12/16/22 documented as of this encounter
--- OUTSIDE RECORDS SUMMARY | 2024-05-18 10:53 | XMS_ITS ---
Author Organization [facility] Address [address] [place] [address] Care Team Providers Care Regulatory Specialist Name Role Phone Adolph Terry MD, Pascual [...] Problem Colon cancer screening (Z12.11) Active confirmed [id number] VITAL SIGNS BMI 31.35 kg/m2 11/24/2023 Blood pressure systolic 000 mm Hg 11/24/19 24 Blood pressure diastolic 00 mm Hg 024 Height 59 in 11/24/2023 Temperature 97.9 degrees Fahrenheit 11/24/19 24 Weight 155 lb 4 oz lbs 11/24/2023 Encounters Encounter Location Date Provider Diagnosis [facility] [address] [place] [address] 11/24/2023 Cortes Castillo Jr Gastroesophageal reflux disease [...] Name:Cortes wilburn Jr, 11/24/2024 09:20:00 AM, [address], [address], [place], [address],
--- OUTSIDE RECORDS SUMMARY | 2024-05-18 10:53 | XMS_ITS | Encounter Summary ---
Author Organization [email or web address] Address [address] [facility] [address] 7t [place] [address] Care Team Providers Care Penetration Tester Name Role Phone Pascual Daly MD Primary Care Provide r Fani Heck PharmD Unavailable [phone] Reason for Visit * Reason Comments Med Refill Encounter Details Date Type Department Care Team (Late st Contact Info) Description 10/21/2023 Refill [facility] [address] [place] [address] Titi Gray FNP Major depressive disorder with [...] Upcoming Encounters Date Type Department Care Team ([facility] st Contact Info) Description 07/22/2024 10:30 AM EDT Clinical Support [facility] [address] [place] [address] Amanda Fernández RN [address] [place] [address] 08/03/2024 10:00 AM EDT Office Visit [facility] [address] [place] [address] Pascual Daly MD [address] [place] [phone] documented as of this encounter Goals Goal [...] documented as of this encounter Care Teams Penetration Tester Relationship Specialty Start Date End Date Pascual Daly MD [address] [place] [phone] PCP - General Internal Medicine 02/22/14 Fani Heck, PharmD [address] [place] [phone] Pharmacist Internal Medicine 12/16/22 documented as of this encounter
--- OUTSIDE RECORDS SUMMARY | 2024-05-18 10:53 | XMS_ITS | Encounter Summary ---
Author Organization [employer] Address [address] [facility] 7t [place] [address] Care Team Providers Care Clin Application Specialist Name Role Phone Pascual Daly MD Primary Care Provide r Fani Heck PharmD Unavailable [phone] Encounter Details Date Type Department Care Team (Latest Contact Info) Description 04/27/2024 Travel Social History Tobacco Use Types Packs/Day Years [...] Description 07/22/2024 10:30 AM EDT Clinical Support [facility] [address] [place], [place] [phone] Amanda Fernández, AALIYAH [address] [place] [address] 08/03/2024 10:00 AM EDT Office Visit [facility] [address] [place] [address] Pascual Daly MD [address] [place] [phone] documented as of this encounter Goals Goal [...] documented as of this encounter Care Teams Clin Application Specialist Relationship Specialty Start Date End Date Pascual Daly MD [address] [place] [address] [phone] PCP - General Internal Medicine 02/22/14 Fani Heck, PharmD [address] [place] [address] [phone] Pharmacist Internal Medicine 12/16/22 documented as of this encounter
--- OUTSIDE RECORDS SUMMARY | 2024-05-18 10:53 | XMS_ITS | Encounter Summary ---
Author Organization [employer] Address [address] [facility] 7t [place] [address] Care Team Providers Care Right Of Way Man Name Role Phone Pascual Daly MD Primary Care Provide r Fani Heck PharmD Unavailable [phone] Reason for Visit * Reason Onset Date Comments Chart Prep 04/19/2024 Encounter Details Date Type Department Care Team ([facility] st Contact Info) Description 04/19/2024 Telephone [facility] [address] [place] [address] Pascual Daly MD [address] [place] [address] Chart Prep Social History Tobacco Use Types Packs/Day Years [...] encounter Miscellaneous Notes * Telephone Encounter - Phylicia Falcon MA - 04/19/2024 11:12 AM EST Chart Prep Labs: not applicable Images: not applicable Vaccines due: Covid Due and Tdap Due Referrals: Completed Screenings: Eye Exam and Foot Exam Overdue care gaps: A1C, Glucose, Sbirt, and Oral Health Chart prep for upcoming appt with Dr.Esparza mercado. LB documented in this encounter Plan of Treatment Upcoming Encounters Date Type Department Care Team (Late st Contact Info) Description 07/22/2024 10:30 AM EDT Clinical Support [facility] [address] [place] [address] Amanda Fernández RN [address] [place] [address] 08/03/2024 10:00 AM EDT Office Visit [facility] [address] [place] [address] Pascual Daly MD [address] [place] [address] documented as of this encounter Goals Goal [...] documented as of this encounter Care Teams Right Of Way Man Relationship Specialty Start Date End Date Pascual Daly MD [address] [place] [address] PCP - General Internal Medicine 02/22/14 Fani Heck, PharmD [address] [place] [address] Pharmacist Internal Medicine 12/16/22 documented as of this encounter
--- OUTSIDE RECORDS SUMMARY | 2024-05-18 10:53 | XMS_ITS | Encounter Summary ---
Author Organization [employer] Address [address] [facility] 7t [place] [address] Care Team Providers Care Enterprise Applications Manager Name Role Phone Pascual Daly MD Primary Care Provide r Fani Heck PharmD Unavailable [phone] Reason for Visit * Reason Onset Date Comments FYI 12/11/2023 Durable Medical Equipment 12/11/2023 Encounter Details Date Type Department Care Team (Late st Contact Info) Description 12/11/2023 Telephone [facility] [address] [place], [place] [phone] Pascual Daly MD [address] [place], [place] [phone] FYI ; Durable Medical Equipment Social History Tobacco Use Types Packs/Day Years [...] encounter Miscellaneous Notes * Telephone Encounter - Coni Pollard - 12/11/2023 4:15 PM EDT Tc from [facility] with [place] informing that pt had 2 falls within the last 3 days and is requesting two DME scripts to be sent to [facility] which: [facility] bed Please fax over to [phone] documented in this encounter Plan of Treatment Upcoming Encounters Date Type Department Care Team (Late st Contact Info) Description 07/22/2024 10:30 AM EDT Clinical Support [facility] [address] [place] [address] Amanda Fernández RN [address] [place] [address] 08/03/2024 10:00 AM EDT Office Visit [facility] [address] [place] [address] Pascual Daly MD [address] [place] [address] documented as of this encounter Goals Goal [...] documented as of this encounter Care Teams Enterprise Applications Manager Relationship Specialty Start Date End Date Pascual Daly MD [address] [place] [address] PCP - General Internal Medicine 02/22/14 Fani Heck, KristiD [address] [place] [phone] Pharmacist Internal Medicine 12/16/22 documented as of this encounter
--- OUTSIDE RECORDS SUMMARY | 2024-05-18 10:53 | XMS_ITS | Encounter Summary ---
Author Organization [employer] Address [address] [facility] 7t [place] [address] Care Team Providers Care Network Support Analyst Name Role Phone Pascual Daly MD Primary Care Provide r Fani Heck PharmD Unavailable [phone] Reason for Visit * Reason Comments Med Refill Encounter Details Date Type Department Care Team (Late st Contact Info) Description 04/22/2024 Refill [facility] [address] [place], [place] [phone] Pascual Daly MD [address] [place], [place] [phone] Mild intermittent asthma without complication Social History [...] 10:30 AM EDT Clinical Support [facility] [address] [place] [address] Amanda Fernández, AALIYAH [address] [place] [address] 08/03/2024 10:00 AM EDT Office Visit [facility] [address] [place] [address] Pascual Daly MD [address] [place] [address] documented as of this encounter Goals Goal [...] documented as of this encounter Care Teams Network Support Analyst Relationship Specialty Start Date End Date Pascual Daly MD [address] [place] [address] PCP - General Internal Medicine 02/22/14 Fani Heck, KristiD [address] [place] [phone] Pharmacist Internal Medicine 12/16/22 documented as of this encounter
--- OUTSIDE RECORDS SUMMARY | 2024-05-18 10:53 | XMS_ITS | Encounter Summary ---
Author Organization [employer] Address [address] [facility] [address] 7t [place] [address] Care Team Providers Care Type Soldering Machine Tender Name Role Phone Pascual Daly MD Primary Care Provide r Fani Heck PharmD Unavailable [phone] Reason for Visit * Reason Comments Med Refill Encounter Details Date Type Department Care Team (Late st Contact Info) Description 10/21/2023 Refill [facility] MED[facility] [address] [place] [address] Titi Gray FNP Major depressive disorder with [...] Upcoming Encounters Date Type Department Care Team ([facility] st Contact Info) Description 07/22/2024 10:30 AM EDT Clinical Support [facility] MED & PEDS [address] [place] [address] Amanda Fernández RN [address] [place] [address] 08/03/2024 10:00 AM EDT Office Visit [facility] [address] [place] [address] Pascual Daly MD [address] [place] [phone] documented as of this encounter Goals Goal [...] documented as of this encounter Care Teams Type Soldering Machine Tender Relationship Specialty Start Date End Date Pascual Daly MD [address] [place] [phone] PCP - General Internal Medicine 02/22/14 Fani Heck, PharmD [address] [place] [address] Pharmacist Internal Medicine 12/16/22 documented as of this encounter
--- OUTSIDE RECORDS SUMMARY | 2024-05-18 10:53 | XMS_ITS | Encounter Summary ---
Author Organization [employer] Address [address] [facility] 7t [place] [address] Care Team Providers Care Electrician Sound Name Role Phone Pascual Daly MD Primary Care Provide r Fani Heck PharmD Unavailable [phone] Reason for Visit * Reason Comments EMG Encounter Details Date Type Department Care Team (Late st Contact Info) Description 05/05/2024 11:30 AM EST Office Visit [facility] [address] [place] [address] Santizo-Mckeon, Ammy, DDS [address] [place], [place] [phone] Aphthous ulcer (Primary Dx) Social History Tobacco Use Types Packs/Day Years [...] AM EST documented as of this encounter Last Filed Vital Signs Vital Sign Reading Time Taken Comments Blood Pressure 133/70 05/05/2024 11:28 AM EST Pulse 72 05/05/2024 11:28 AM EST Temperature - - Respiratory Rate - - Oxygen Saturation - - Inhaled Oxygen Concentration - - Weight - - Height - - Body Mass Index - - documented in this encounter Progress Notes * Ammy Owen DDS - 05/05/2024 11:30 AM EST Dental procedures in this visit [id number] - ADJUNCTIVE GENERAL SERVICES - UNCLASSIFIED TREATMENT - PALLIATIVE TREATMENT OF DENTAL PAIN - PER VISIT (Completed) Service provider: Ammy Owen DDS Billing provider: Ammy Owen DDS [id number] - ADJUNCTIVE GENERAL SERVICES - PROFESSIONAL VISITS - CASE PRESENTATION, SUBSEQUENT TO DETAILED AND EXTENSIVE TREATMENT PLANNING (Completed) Service provider: Ammy Owen DDS Billing provider: Ammy Owen DDS Patient ID: Brandie Santana is a 74 y.o. female. Time Out: Timeout Date: 05/05/24, Timeout Time: 1129 (EMG Patient is having some bledding on her gums) Location: [facility] Tooth: Lateral border of Tongue (L) and vestibule on 313 Procedure: Emergency Verified the above with patient, senior agricultural assistant, and provider. Confirmed via patient's chart, intraorally and by radiographs. Dry Chain Offbearer: not applicable Chief Complaint Patient presents with EMG Medical Hx: Vitals: Blood pressure 133/70, pulse 72. Past Medical History: Diagnosis Date Anemia Anxiety Arthritis Asthma Diabetes mellitus (CMS/HCC) Disease of thyroid gland Hypertension Stroke ([facility]) Medications: Outpatient Encounter Medications as of 05/05/2024 Medication Sig Dispense Refill acetaminophen (Tylenol) 500 MG tablet take 1 tablet (500MG) by oral route every 6 hours as needed Actemra ACTPen 162 MG/0.9ML solution auto-injector Inject as directed (likely every other week; verify dose with patient or pharmacy) albuterol (2.5 MG/3ML) 0.083% nebulizer solution INHALE 1 AMPULE USING A NEBULIZER EVERY THREE HOURS NEEDED FOR SHORTNESS OF BREATH albuterol (Ventolin HFA) 108 (90 Base) MCG/ACT inhaler INHALE 2 PUFFS BY MOUTH EVERY 4 TO 6 HOURS NEEDED 18 g 1 amLODIPine (Norvasc) 10 MG tablet TAKE 1 TABLET BY MOUTH EVERY EVENING 90 tablet 0 ARIPiprazole (Abilify) 20 MG tablet Take 1 tablet (20 mg) by mouth in the morning. 90 tablet 1 atorvastatin (Lipitor) 20 MG tablet TAKE 1 TABLET BY MOUTH EVERY MORNING 90 tablet 0 Baqsimi Two Pack 3 MG/DOSE nasal powder USE 1 SPRAY (3MG) IN ONE NOSTRIL FOR A PATIENT WITH SEVERE HYPOGLYCEMIA WHO IS NOT RESPONSIVE AND UNABLE SELF-TREAT WITH GLUCOSE. AFTERWARDS TURN ON SIDE. MAY REPEAT IN 15MINUTES IF PATIENT DOES NOT RESPOND. Bisacodyl EC 5 MG EC tablet Take 10 mg by mouth at bedtime. calcium citrate (Calcitrate) 950 (200 Ca) MG tablet Take 2 tablets by mouth 2 times daily. carvedilol (Coreg) 6.25 MG tablet TAKE 1 TABLET BY MOUTH TWICE DAILY IN THE MORNING AND AT BEDTIME chlorhexidine (Peridex) 0.12 % solution Use 15 mL in the mouth or throat if needed (for mouthwash 15 ml for 30 seconds, swish and spit) for up to 14 days. 120 mL 0 clonazePAM (KlonoPIN) 0.5 MG tablet Take 1 tablet (0.5 mg) by mouth if needed in the morning, at noon, and at bedtime for anxiety. 90 tablet 0 clopidogrel (Plavix) 75 MG tablet Take 75 mg by mouth in the morning. Continuous Glucose Sensor (Blue Nile G7 Sensor) misc DIRECTED D3 Super Strength 50 MCG (2000 UT) capsule Take 50 mcg by mouth in the morning. esomeprazole (NexIUM) [address] capsule Take 40 mg by mouth Once daily. fluticasone (Flonase Allergy Relief) 50 MCG/ACT nasal spray Administer 1 spray into each nostril inthe morning. Shake gently. Before first use, prime pump. After use, clean tip and replace cap. 16 g12 folic acid (Folvite) 1 MG tablet take 1 tablet by oral route every day gabapentin (Neurontin) 100 MG capsule TAKE 1 CAPSULE TWICE DAILY IN THE MORNING AND AT BEDTIME 180 capsule 1 glucose blood (FREESTYLE LITE) test strip USE 1 Each by DIRECTED route 4 times every day hydrOXYzine HCl (Atarax) 10 MG tablet Take 1 tablet (10 mg) by mouth every 8 (eight) hours if needed for anxiety. 50 tablet 0 insulin aspart, with niacinamide, (Fiasp FlexTouch) 100 UNIT/ML injection Inject 2-15 units before meals and snacks up to 5 times a day. insulin degludec (Tresiba FlexTouch) 100 UNIT/ML injection Inject 20 units subcutaneously every day levothyroxine (Synthroid, Levoxyl) 112 MCG tablet Take 112 mcg by mouth Once per day. Linzess 290 MCG capsule Take 290 mcg by mouth in the morning. losartan (Cozaar) 100 MG tablet TAKE 1 TABLET BY MOUTH EVERY MORNING 90 tablet 1 melatonin 3 MG tablet Take 1 tablet (3 mg) by mouth if needed at bedtime for sleep. 30 tablet 2 oxyCODONE (Roxicodone) 5 MG immediate release tablet Take 1 tablet (5 mg) by mouth every 12 (twelve) hours if needed for severe pain. Do not start before April 13, 2024. 56 tablet 0 prazosin (Minipress) 2 MG capsule Take 3 capsules (6 mg) by mouth at bedtime. 270 capsule 1 Simethicone Ultra Strength 180 MG capsule TAKE 1 CAPSULE BY MOUTH FOUR TIMES DAILY AFTER MEALS UltiGuard SafePack Pen Needle 32G X 4 MM misc USE DIRECTED FIVE TIMES DAILY venlafaxine XR (Effexor XR) 150 MG 24 hr capsule Take 1 capsule (150 mg) by mouth in the morning. Do not crush or chew. 90 capsule 1 No facility-administered encounter medications on file as of 05/05/2024. Subjective: Pain: constant, moderate Duration: 1 week Objective: Pt in office because of pain on side of the tongue and vestibule on L side. Pt states that she got these little bubbles a few days ago. On the clinical exam it is observed, ulcers sores on the lateral border of the tongue (L) and B aphthous ulcer on vestibule of #13. Pain to the touch. Mouthwash prescribed. Also to use Luke warm water with salt to rinses. Diagnosis: Aphthous ulcer Assessment/Plan: F/up as needed. Prescriptions: Peridex 15 ml/tid/prn Pt tolerated procedure well, all questions answered. Dismissed in good condition. Clinical Massage Therapist: Lupis Guthrie Dentist: Ammy Owen DDS documented in this encounter Plan of Treatment Upcoming Encounters Date Type Department Care Team (Late st Contact Info) Description 07/22/2024 10:30 AM EDT Clinical Support [facility] [address] [place] [address] Amanda Fernández, RN [address] [place] [address] 08/03/2024 10:00 AM EDT Office Visit [facility] [address] [place] [address] Pascual Daly MD [address] [place] [address] documented as of this encounter Goals Goal Patient Goal Type Associated Problems Recent Progress Patient-Stated? Author Blood Pressure < 140/90 Blood Pressure 133/70( 025 11:28 AM EST) No Fani eHck, PharmD documented as of this encounter Procedures Procedure Name Priority Date/Time Associated Diagnosis Comments ADJUNCTIVE GENERAL SERVICES - UNCLASSIFIED TREATMENT - PALLIATIVE TREATMENT OF DENTAL PAIN - PER VISIT Routine 05/05/2024 11:30 AM EST Aphthous ulcer ADJUNCTIVE GENERAL SERVICES - PROFESSIONAL VISITS - CASE PRESENTATION, SUBSEQUENT TO DETAILED AND EXTENSIVE TREATMENT PLANNING Routine 05/05/2024 11:30 AM EST Aphthous ulcer documented in this encounter Visit Diagnoses Diagnosis Aphthous ulcer- Primary Oral aphthae documented in this encounter Additional Health Concerns Assessment Noted Time PHQ-9 Depression Total Score: 9 01/29/20 24 11:00 AM EDT documented as of this encounter Care Teams Electrician Sound Relationship Specialty Start Date End Date Pascual Daly MD [address] [place] [address] PCP - General Internal Medicine 02/22/14 Fani Heck PharmD [address] [place] [phone] Pharmacist Internal Medicine 12/16/22 documented as of this encounter
--- OUTSIDE RECORDS SUMMARY | 2024-05-18 10:53 | XMS_ITS | Encounter Summary ---
Author Organization [employer] Address [address] [facility] 7t [place] [address] Care Team Providers Care Director Of Accounts Receivable Name Role Phone Pascual Daly MD Primary Care Provide r Fani Heck PharmD Unavailable [phone] Reason for Visit * Reason Comments Med Refill Encounter Details Date Type Department Care Team (Late Contact Info) Description 12/28/2022 Refill [facility] [address] [place] [address] Titi Gray FNP Major depressive disorder with psychotic features (CMS/HCC) Social History Tobacco Use Types Packs/Day Years Used Date Smoking Tobacco: Never Passive Smoke Exposure: Never Smokeless Tobacco: Never Alcohol Use Standard Drinks/Week Comments Never 0 (1 standard drink = 0.6 oz pur e alcohol) Depression Answer Date Recorded Patient Health Questionnaire-9 Score 10 12/05/2022 Depression Answer Date Recorded Patient Health Questionnaire-2 Score 4 12/05/2022 Comments Unknown Sex and Gender Information Value [...] 10:30 AM EDT Clinical Support [facility] MED & PEDS [address] [place], [place] [phone] Amanda Fernández, AALIYAH [address] [place] [address] 08/03/2024 10:00 AM EDT Office Visit [facility] [address] [place] [address] Pascual Daly MD [address] [place] [address] documented as of this encounter Goals Goal Patient Goal Type Associated Problems Recent Progress Patient-Stated? Author Blood Pressure < 140/90 Blood Pressure 133/70( 025 11:28 AM EST) No Fani Heck, PharmD documented as of this encounter Visit Diagnoses Diagnosis Major depressive disorder with psychotic features (CMS/HCC) documented in this encounter Additional Health Concerns Assessment Noted Time PHQ-9 Depression Total Score: 10 023 10:52 AM EDT documented as of this encounter Care Teams Director Of Accounts Receivable Relationship Specialty Start Date End Date Pascual Daly MD [address] [place] [phone] PCP - General Internal Medicine 02/22/14 Fani Heck, PharmD [address] [place] [phone] Pharmacist Internal Medicine 12/16/22 documented as of this encounter
--- OUTSIDE RECORDS SUMMARY | 2024-05-18 10:53 | XMS_ITS | Encounter Summary ---
Author Organization [employer] Address [address] [facility] 7t [place] [address] Care Team Providers Care Industrial Engineering Director Name Role Phone Pascual Daly MD Primary Care Provide r Fani Heck PharmD Unavailable [phone] Encounter Details Date Type Department Care Team (Latest Contact Info) Description 05/04/2024 Travel Social History Tobacco Use Types Packs/Day [...] Description 07/22/2024 10:30 AM EDT Clinical Support [facility] MED & PEDS [address] [place], [place] [phone] Amanda Fernández, AALIYAH [address] [place] [address] 08/03/2024 10:00 AM EDT Office Visit [facility] MED[facility] [address] [place] [address] Pascual Daly MD [address] [place] [phone] documented as of this encounter Goals Goal [...] documented as of this encounter Care Teams Industrial Engineering Director Relationship Specialty Start Date End Date Pascual Daly MD [address] [place] [address] [phone] PCP - General Internal Medicine 02/22/14 Fani Heck, PharmD [address] [place] [address] [phone] Pharmacist Internal Medicine 12/16/22 documented as of this encounter
--- OUTSIDE RECORDS SUMMARY | 2024-05-18 10:53 | XMS_ITS | Encounter Summary ---
Author Organization [employer] Address [address] [facility] 7t [place] [address] Care Team Providers Care Opal Polisher Name Role Phone Pascual Daly MD Primary Care Provide r Fani Heck PharmD Unavailable [phone] Reason for Visit * Reason Onset Date Comments Med Refill 10/11/2022 Encounter Details Date Type Department Care Team ([facility] st Contact Info) Description 10/11/2022 Telephone [facility] [address] [place] [address] Pascual Daly MD [address] [place], [place] [phone] Med Refill Social History Tobacco Use Types Packs/Day Years Used Date Smoking Tobacco: Never Passive Smoke Exposure: Never Smokeless Tobacco: Never Alcohol Use Standard Drinks/Week Comments Not Asked 0 (1 standard drink = 0.6 oz pur e alcohol) PHQ-2 Answer Date Recorded Patient Health Questionnaire-2 Score 4 10/15/2022 Comments Unknown Sex and Gender Information Value Date Recorded Sex Assigned at Female 02/18/2022 10:14 AM EDT Legal Sex Female 10:14 AM EDT Gender Identity Female 02/18/2022 10:14 AM EDT Sexual Orientation Straight 03/26/2022 10 :21 AM EST documented as of this encounter Miscellaneous Notes * Telephone Encounter - Aleksandra Verdugo - 10/11/2022 8:18 AM EDT Tc from patient requesting a med refill on medication clonazepam 0.[address] Farfan documented in this encounter Plan of Treatment Upcoming Encounters Date Type Department Care Team (Late st Contact Info) Description 07/22/2024 10:30 AM EDT Clinical Support [facility] MED & PEDS [address] [place] [address] Amanda Fernández, RN [address] [place] [address] 08/03/2024 10:00 AM EDT Office Visit [facility]IC[facility] [address] [place] [address] Pascual Daly MD [address] [place] [address] documented as of this encounter Goals Goal [...] documented as of this encounter Care Teams Opal Polisher Relationship Specialty Start Date End Date Pascual Daly MD [address] [place] [address] PCP - General Internal Medicine 02/22/14 Fani Heck, PharmD [address] [place] [phone] Pharmacist Internal Medicine 12/16/22 documented as of this encounter
--- OUTSIDE RECORDS SUMMARY | 2024-05-18 10:53 | XMS_ITS | Encounter Summary ---
Author Organization [employer] Address [address] [facility] [address] [place] [address] Care Team Providers Care Printing Gray Cloth Tender Name Role Phone Pascual Daly MD Primary Care Provide r Fani Heck PharmD Unavailable [phone] Reason for Visit * Reason Comments Diabetes Encounter Details Date Type Department Care Team (Late st Contact Info) Description 05/04/2024 10:15 AM EST Office Visit [facility] MEDICINE [address] [place], [place] [phone] Pascual Daly MD [address] [place], [place] [phone] Type 2 diabetes mellitus without complication, with long-term current use of insulin ([facility]) (Primary Dx); Primary hypertension; Mixed hyperlipidemia; Recurrent falls Social History Tobacco Use Types Packs/Day Years [...] Sign Reading Time Taken Comments Blood Pressure 132/69 05/04/2024 10:06 AM EST Pulse 70 05/04/2024 10:06 AM EST Temperature 36.1 ??C (96.9 ??F) 05/04/2024 10:[address] Respiratory Rate 20 05/04/2024 10:06 AM EST Oxygen Saturation 98% 05/04/2024 10:06 AM EST Inhaled Oxygen Concentration - - Weight 65.9 kg (145 lb 3.2 oz) 05/04/2024 10:06 AM EST Height 149.9 cm (4' 11 ) 05/04/2024 10:06 AM EST Body Mass Index 29.33 05/04/2024 10:06 AM EST documented in this encounter Progress Notes * Pascual Terry MD - 05/04/2024 10:15 AM EST SUBJECTIVE Brandie Santana is a 74 y.o. female who presents for Diabetes. Diabetes She presents for her follow-up diabetic visit. She has type 2 diabetes mellitus. Pertinent negatives for hypoglycemia include no headaches. Pertinent negatives for diabetes include no chest pain. Review of Systems Constitutional: Negative for fever. HENT: Negative for sore throat. Respiratory: Negative for cough and shortness of breath. Cardiovascular: Negative for chest pain. Gastrointestinal: Negative for abdominal pain. Neurological: Negative for headaches. Allergies Allergen Reactions Celecoxib Nausea Only and Unknown Lorazepam Unknown Naproxen Unknown Tramadol Hives and Unknown Zolpidem Anxiety and Unknown OBJECTIVE Vitals: 05/04/24 1006 BP: 132/69 BP Location: Left arm Patient Position: Sitting BP Cuff Size: Large adult Pulse: 70 Resp: 20 Temp: 96.9 ??F (36.1 ??C) TempSrc: Temporal SpO2: 98% Weight: 145 lb 3.2 oz (65.9 kg) Height: 4' 11 (1.499 m) Physical Exam Vitals reviewed. Constitutional: Appearance: Normal appearance. HENT: Head: Normocephalic and atraumatic. Right Ear: External ear normal. Left Ear: External ear normal. Nose: Nose normal. Mouth/Throat: Mouth: Mucous membranes are moist. Eyes: Conjunctiva/sclera: Conjunctivae normal. Cardiovascular: Rate and Rhythm: Normal rate and regular rhythm. Pulmonary: Effort: Pulmonary effort is normal. Breath sounds: Normal breath sounds. Skin: General: Skin is warm. Neurological: Mental Status: She is alert. Mental status is at baseline. Assessment/Plan Problem List Items Addressed This Visit Type 2 diabetes mellitus without complication, with long-term current use of insulin ([facility]) - Primary Pt here for a f/u She is under the care of Endocrinology office Vashti Glass SENIOR JAVA ARCHITECT, last seen 03/17/2024 and follows with RN [...] check your feet on a daily basis. Relevant Orders POCT HGB A1C (Completed) POCT Glucose (Completed) Hypertension Patient is here for a f/u BP [...] counseled about weight loss. F/U 3 months Hyperlipidemia Pt with elevated lipids Most recent lipid [...] Statin Repeat LFTs 02/17/2024 back to normal Recurrent falls Hx of recurrent falls Walks with a walker Needs a handycap placard documented in this encounter Miscellaneous Notes * Assessment & Plan Note - Pascual Terry MD - 05/04/2024 10:21 AM EST Associated Problem(s): Recurrent falls Hx of recurrent falls Walks with a walker Needs a handycap placard * Assessment & Plan Note - Pascual Terry MD - 05/04/2024 10:20 AM EST Associated Problem(s): Hyperlipidemia Pt with elevated lipids Most recent lipid [...] Statin Repeat LFTs 02/17/2024 back to normal * Assessment & Plan Note - Pascual Terry MD - 05/04/2024 10:19 AM EST Associated Problem(s): Hypertension Patient is here for a f/u BP [...] counseled about weight loss. F/U 3 months * Assessment & Plan Note - Pascual Terry MD - 05/04/2024 9:12 AM EST Associated Problem(s): Type 2 diabetes mellitus without complication, with long-term current use ofinsulin ([facility]) Pt here for a f/u She is under the care of Endocrinology office Vashti Glass SENIOR JAVA ARCHITECT, last seen 03/17/2024 and follows with RN [...] check your feet on a daily basis. documented in this encounter Plan of Treatment Upcoming Encounters Date Type Department Care Team (Late st Contact Info) Description 07/22/2024 10:30 AM EDT Clinical Support [facility] MED & PEDS [address] [place] [address] Amanda Fernández, RN [address] [place] [address] 08/03/2024 10:00 AM EDT Office Visit [facility] MEDICINE [address] [place] [address] Pascual Daly MD [address] [place] [address] documented as of this encounter Goals Goal Patient Goal Type Associated Problems Recent Progress Patient-Stated? Author Blood Pressure < 140/90 Blood Pressure 133/70( 025 11:28 AM EST) No Fani Heck, KristiD documented as of this encounter Procedures Procedure Name Priority Date/Time Associated Diagnosis Comments POCT GLYCATED HEMOGLOBIN, TOTAL Routine 05/04/2024 10:16 AM EST Type 2 diabetes mellitus without complication, with long-term current use of insulin ([facility]) POCT GLUCOSE Routine 05/04/2024 10:16 AM EST Type 2 diabetes mellitus without complication, with long-term current use of insulin ([facility]) documented in this encounter Results * (ABNORMAL) POCT Glucose (05/04/2024 10:16 AM EST) Glucose Blood, POC 270(A) 60 - 200 mg/dL QC Media Lot # [id number] Lot# Expiration Date ,025 Blood Capillary blood specimen / Unknown 05/04/2024 10:16 AM EST Pascual Terry MD POINT OF CARE TEST EN TER/EDIT ORDERABLES Final Result * (ABNORMAL) POCT HGB A1C (05/04/2024 10:16 AM EST) Hemoglobin A1C 8.9(A) 4.0 - 6.0 % QC Media Lot # [id number] Lot# Expiration Date ,026 Blood 05/04/2024 10:1 6 AM EST us Pascual Terry MD POINT OF CARE TEST ENTER/EDIT ORDERABLES Edited Result - Final documented in this encounter Visit Diagnoses Diagnosis Type 2 diabetes mellitus without complication, with long-term current use of insulin ([facility])- Primary Primary hypertension Unspecified essential hypertension Mixed hyperlipidemia Recurrent falls documented in this encounter Additional Health Concerns Assessment Noted Time PHQ-9 Depression Total Score: 9 01/29/20 24 11:00 AM EDT documented as of this encounter Care Teams Printing Gray Cloth Tender Relationship Specialty Start Date End Date Pascual Daly MD [address] [place] [phone] PCP - General Internal Medicine 02/22/14 Fani Heck, Woody [address] [place] [phone] Pharmacist Internal Medicine 12/16/22 documented as of this encounter
--- OUTSIDE RECORDS SUMMARY | 2024-05-18 10:53 | XMS_ITS | Encounter Summary ---
Author Organization [email or web address] Address [address] [facility] 7t [place] [address] Care Team Providers Care Radio News Writer Name Role Phone Pascual Daly MD Primary Care Provide r Fani Heck PharmD Unavailable [phone] Reason for Visit * Reason Onset Date Comments Med Refill 10/28/2023 Encounter Details Date Type Department Care Team ([facility] st Contact Info) Description 10/28/2023 Telephone [facility] MEDICINE [address] [place] [address] Pascual Daly MD [address] [place] [address] Med Refill Social History Tobacco Use Types [...] Telephone Encounter - Ad Toure - 10/28/2023 2:57 PM EDT Tc from pt requesting a refill for oxycodone 5 mg however specifications writer does not see script on file. Please contact at [phone] Latvian documented in this encounter Plan of Treatment Upcoming Encounters Date Type Department Care Team ([facility] st Contact Info) Description 07/22/2024 10:30 AM EDT Clinical Support [facility] CH[facility] MED & PEDS [address] [place] [address] Amanda Fernández, AALIYAH 505 [place] [address] 08/03/2024 10:00 AM EDT Office Visit [facility] MEDICINE [address] [place] [address] Pascual Daly MD [address] [place] [address] documented as of this encounter Goals Goal [...] documented as of this encounter Care Teams Radio News Writer Relationship Specialty Start Date End Date Pascual Daly MD [address] [place] [address] PCP - General Internal Medicine 02/22/14 Fani Heck, PharmD [address] [place] [address] Pharmacist Internal Medicine 12/16/22 documented as of this encounter
--- OUTSIDE RECORDS SUMMARY | 2024-05-18 10:53 | XMS_ITS ---
Author Organization [facility] Address [address] [place] [address] Care Team Providers Care Chief Of Surgery Name Role Phone Adolph Terry MD, Pascual Primary Care Provide r Vidal Castillo Jr, Cortes Unavailable [phone] Zeb Tang Unavailable Unavailable Encounters Encounter Location Date Provider Diagnosis [facility] [address] [place] [address] 03/01/2024 Cortes Castillo Jr PLAN OF TREATMENT Next Appt Details Provider Name:Cortes wilburn Jr, 11/24/2024 09:20:00 AM, [address], [address], [place], [address],
--- OUTSIDE RECORDS SUMMARY | 2024-05-18 10:53 | XMS_ITS | Encounter Summary ---
Author Organization [employer] Address 75 [facility] 7t [place] [address] Care Team Providers Care Oil Furnace Installer Name Role Phone Pascual Daly MD Primary Care Provide r Fani Heck PharmD Unavailable [phone] Encounter Details Date Type Department Care Team (Late st Contact Info) Description 05/29/2022 Abstract [facility] MEDICINE [address] [place] [address] Pascual Daly MD 230 [place] [address] Social History Tobacco Use Types Packs/Day Years Used Date Smoking Tobacco: Never Passive Smoke Exposure: Never Smokeless Tobacco: Never Alcohol Use Standard Drinks/Week Comments Not Asked 0 (1 standard drink = 0.6 oz pur e alcohol) PHQ-2 Answer Date Recorded Patient Health Questionnaire-2 Score 2 04/25/2022 Comments Unknown Sex and Gender Information Value [...] suspected to have Coronavirus/COVID-19? No / Unsure 05/13/2022 10:23 AM EST documented as of this encounter Plan of Treatment Upcoming Encounters Date Type Department Care Team (Late st Contact Info) Description 07/22/2024 10:30 AM EDT Clinical Support [facility] CHC MED & PEDS [address] [place] [address] Amanda Fernández, RN [address] [facility] [place], [place] 08/03/2024 10:00 AM EDT Office Visit [facility] MEDICINE 230 [facility] [place] [address] Pascual Daly MD 230 [facility] [place] [address] documented as of this encounter Goals Goal Patient Goal Type Associated Problems Recent Progress Patient-Stated? Author Blood Pressure < 140/90 Blood Pressure 133/70( 025 11:28 AM EST) No Fani Heck PharmD documented as of this encounter Procedures Procedure Name Priority Date/Time Associated Diagnosis Comments MAMMOGRAPHY Routine 05/23/2022 documented in this encounter Results * Mammography (05/23/2022) Mammogram perform Anatomical Region Laterality Modality Other us Historical Provider HEALTH MAINTENANCE Final Result documented in this encounter Visit Diagnoses Not on filedocumented in this encounter Additional Health Concerns Assessment Noted Time PHQ-9 Depression Total Score: 9 04/25/19 23 11:31 AM EST documented as of this encounter Care Teams Oil Furnace Installer Relationship Specialty Start Date End Date Pascual Daly MD [address] [facility] [place] [address] PCP - General Internal Medicine 02/22/14 Fani Heck PharmD [facility] [place] [address] Pharmacist Internal Medicine 12/16/22 documented as of this encounter
--- OUTSIDE RECORDS SUMMARY | 2024-05-18 10:54 | XMS_ITS | Encounter Summary ---
Author Organization [employer] Address [address] [facility] 7t [place] [address] Care Team Providers Care Inventory Control Associate Name Role Phone Pascual Daly MD Primary Care Provide r Fani Heck PharmD Unavailable [phone] Reason for Visit * Reason Comments Med Refill Encounter Details Date Type Department Care Team (Late st Contact Info) Description 05/13/2024 Refill [facility] MEDICINE [address] [place], [place] [phone] Pascual Daly MD [address] [place], [place] [phone] Fibromyalgia Social History Tobacco Use Types Packs/Day [...] encounter Miscellaneous Notes * Telephone Encounter - Ana Cali RN - 05/13/2024 9:52 AM EST MACHINE PRESERVATIVE FILLER checked. Pt last picked up 28 day supply of oxycodone 04/13/24. Soonest expected refill date is05/11/24. Saw HOUSING LIAISON 04/27/24. Refill appropriate. Queued. documented in this encounter Plan of Treatment Upcoming Encounters Date Type Department Care Team ([facility] st Contact Info) Description 07/22/2024 10:30 AM EDT Clinical Support [facility] CH[facility] MED & PEDS [address] [place] [address] Amanda Fernández, RN [address] [place] [address] 08/03/2024 10:00 AM EDT Office Visit [facility]INE [address] [place] [address] Pascual Daly MD [address] [place] [address] documented as of this encounter Goals Goal [...] documented as of this encounter Care Teams Inventory Control Associate Relationship Specialty Start Date End Date Pascual Daly MD [address] [place] [address] PCP - General Internal Medicine 02/22/14 Fani Heck, KristiD [address] [place] [address] Pharmacist Internal Medicine 12/16/22 documented as of this encounter
--- OUTSIDE RECORDS SUMMARY | 2024-05-18 10:54 | XMS_ITS | Encounter Summary ---
Author Organization [employer] Address 75 [facility] 7t [place] [address] Care Team Providers Care Refining Still Operator Name Role Phone Pascual Daly MD Primary Care Provide r Fani Heck PharmD Unavailable [phone] Encounter Details Date Type Department Care Team (Late st Contact Info) Description 03/13/2022 Abstract [facility] MEDICINE [address] [place] [address] ProviderBill MD Social History Tobacco Use Types Packs/Day Years Used Date Smoking Tobacco: Never Assessed Comments Unknown Sex and Gender Information Value [...] Support [facility] CHC MED & PEDS [address] [place] [address] Amanda Fernández, AALIYAH 505 [place] [address] 08/03/2024 10:00 AM EDT Office Visit [facility] MEDICINE [address] [place] [address] Pascual Daly MD [address] [place], [place] [phone] documented as of this encounter Visit Diagnoses Not on filedocumented in this encounter Care Teams Refining Still Operator Relationship Specialty Start Date End Date Pascual Daly MD [address] [place] [address] PCP - General Internal Medicine 02/22/14 Fani Heck PharmD [address] [place] [phone] Pharmacist Internal Medicine 12/16/22 documented as of this encounter
--- OUTSIDE RECORDS SUMMARY | 2024-05-18 10:54 | XMS_ITS | Encounter Summary ---
Author Organization [employer] Address [address] [facility] 7t [place] [address] Care Team Providers Care Nail Polish Brush Machine Feeder Name Role Phone Pascual Daly MD Primary Care Provide r Fani Heck PharmD Unavailable [phone] Reason for Visit * Reason Onset Date Comments Med Refill 12/15/2023 Encounter Details Date Type Department Care Team ([facility] st Contact Info) Description 12/15/2023 Telephone [facility] MEDICINE [address] [place] [address] Pascual Daly MD [address] [place] [address] Med Refill Social History Tobacco Use Types [...] * Telephone Encounter - Bradley Guthrie - 12/15/2023 2:28 PM EDT TC from pt requesting medication refill. Medications needing refill: oxyCODONE (Roxicodone) 5 MG immediate release tablet To be sent to: [facility] - [place], [place] - [address] [place] [address] documented in this encounter Plan of Treatment Upcoming Encounters Date Type Department Care Team ([facility] st Contact Info) Description 07/22/2024 10:30 AM EDT Clinical Support [facility] CHC MED & PEDS [address] [place] [address] Amanda Fernández RN [address] [place] [address] 08/03/2024 10:00 AM EDT Office Visit [facility] MEDICINE [address] [place] [address] Pascual Daly MD [address] [place] [address] documented as of this encounter Goals Goal [...] documented as of this encounter Care Teams Nail Polish Brush Machine Feeder Relationship Specialty Start Date End Date Pascual Daly MD [address] [place] [address] PCP - General Internal Medicine 02/22/14 Fani Heck, PharmD [address] [place] [address] Pharmacist Internal Medicine 12/16/22 documented as of this encounter
--- OUTSIDE RECORDS SUMMARY | 2024-05-18 10:54 | XMS_ITS | Encounter Summary ---
Author Organization [employer] Address 75 [facility] 7t [place] [address] Care Team Providers Care Video Game Designer Name Role Phone Pascual Daly MD Primary Care Provide r Fani Heck PharmD Unavailable [phone] Encounter Details Date Type Department Care Team (Late st Contact Info) Description 05/18/2024 Orders Only GENERIC EXTERNAL DATA DEPARTMENT Provider, Generic External Data Social History Tobacco Use Types Packs/Day Years [...] Description 07/22/2024 10:30 AM EDT Clinical Support [facility] CHC MED & PEDS [address] [place], [place] [phone] Amanda Fernández, AALIYAH [address] [place] [address] 08/03/2024 10:00 AM EDT Office Visit [facility] MEDICINE 230 [place] [address] Pascual Daly MD [address] [place] [address] documented as of this encounter Goals Goal Patient Goal Type Associated Problems Recent Progress Patient-Stated? Author Blood Pressure < 140/90 Blood Pressure 133/70( 025 11:28 AM EST) No Fani Heck, KristiD documented as of this encounter Procedures Procedure Name Priority Date/Time Associated Diagnosis Comments GLUCOSE, WHOLE BLOOD Routine 05/18/2024 10:17 AM EST documented in this encounter Results * (ABNORMAL) Glucose, Whole Blood (05/18/2024 10:17 AM EST) Glucose, Whole Blood 260(H) 60 - 115 mg/dL [facility] Comment:METER #: [id number] Testing performed in the Endocrinology Department [address] , [address], [facility]. 05/18/2024 10:1 7 AM EST 05/18/2024 10:22 AM EST us Generic External Data Provider LAB BLOOD ORDERAB LES Final Result [facility] [address] [place] [address] [phone] documented in this encounter Visit Diagnoses Not on filedocumented in this encounter Additional Health Concerns Assessment Noted Time PHQ-9 Depression Total Score: 9 01/29/20 24 11:00 AM EDT documented as of this encounter Care Teams Video Game Designer Relationship Specialty Start Date End Date Pascual Daly MD [address] [place] [address] PCP - General Internal Medicine 02/22/14 Fani Heck PharmD [address] [place] [address] Pharmacist Internal Medicine 12/16/22 documented as of this encounter
--- OUTSIDE RECORDS SUMMARY | 2024-05-18 10:54 | XMS_ITS | Encounter Summary ---
Author Organization [employer] Address 75 [facility] 7t [place] [address] Care Team Providers Care Hydrographer Name Role Phone Pascual Daly MD Primary Care Provide r Fani Heck PharmD Unavailable [phone] Encounter Details Date Type Department Care Team (Late st Contact Info) Description 03/11/2022 Abstract [facility] MEDICINE [address] [place] [address] Pascual Daly MD 230 [place] [address] Social History Tobacco Use Types Packs/Day Years [...] 07/22/2024 10:30 AM EDT Clinical Support [facility] CH[facility] MED & PEDS [address] [place], [place] [phone] Amanda Fernández, AALIYAH 505 [place] [address] 08/03/2024 10:00 AM EDT Office Visit [facility] MEDICINE [address] [place] [address] Pascual Daly MD [address] [place] [address] documented as of this encounter Visit Diagnoses Not on filedocumented in this encounter Care Teams Hydrographer Relationship Specialty Start Date End Date Pascual Daly MD [address] [place] [phone] PCP - General Internal Medicine 02/22/14 Fani Heck PharmD [address] [place] [phone] Pharmacist Internal Medicine 12/16/22 documented as of this encounter
--- OUTSIDE RECORDS SUMMARY | 2024-05-18 10:54 | XMS_ITS | Encounter Summary ---
Author Organization [employer] Address 75 [facility] 7t [place] [address] Care Team Providers Care Blocking Machine Tender Name Role Phone Pascual Daly MD Primary Care Provide r Fani Heck PharmD Unavailable [phone] Reason for Visit * Reason Onset Date Comments Med Refill 05/13/2024 Encounter Details Date Type Department Care Team ([facility] st Contact Info) Description 05/13/2024 Telephone [facility] MEDICINE [address] [place] [address] Pascual Daly MD [address] [place] [address] Med Refill Social History Tobacco Use Types [...] Encounter - Ana Cali RN - 05/13/2024 10:12 AM EST Already queued in other encounter * Telephone Encounter - Olga Dykes - 05/13/2024 8:26 AM EST TC from pt requesting medication refill. Medications needing refill : oxyCODONE (Roxicodone) 5 MG immediate release tablet To be sent to: [facility] documented in this encounter Plan of Treatment Upcoming Encounters Date Type Department Care Team (Late st Contact Info) Description 07/22/2024 10:30 AM EDT Clinical Support [facility] CHC MED & PEDS [address] [place] [address] Amanda Fernández, AALIYAH [address] [place] [address] 08/03/2024 10:00 AM EDT Office Visit [facility] MEDICINE 230 [place] [address] Pascual Daly MD [address] [place] [address] documented as of this encounter Goals Goal [...] documented as of this encounter Care Teams Blocking Machine Tender Relationship Specialty Start Date End Date Pascual Daly MD [address] [place] [address] PCP - General Internal Medicine 02/22/14 Fani Heck, PharmD [address] [place] [address] Pharmacist Internal Medicine 12/16/22 documented as of this encounter
--- OUTSIDE RECORDS SUMMARY | 2024-05-18 10:54 | XMS_ITS ---
Author Organization [facility] Address [address] [place] [address] Care Team Providers Care Finish Specialist Name Role Phone Adolph Terry MD, Pascual Primary Care Provide r Vidal Castillo Jr, Cortes Unavailable [phone] Zeb Tang Unavailable Unavailable Encounters Encounter Location Date Provider Diagnosis [facility] [address] [place] [address] 11/24/2023 Cortes Castillo Jr PLAN OF TREATMENT Next Appt Details Provider Name:Cortes wilburn Jr, 11/24/2024 09:20:00 AM, [address], [address], [place], [address],
--- OUTSIDE RECORDS SUMMARY | 2024-05-18 10:54 | XMS_ITS | Encounter Summary ---
Author Organization [employer] Address 75 [facility] 7t [place] [address] Care Team Providers Care Director Of Testing Name Role Phone Pascual Daly MD Primary Care Provide r Fani Heck PharmD Unavailable [phone] Encounter Details Date Type Department Care Team (Latest Contact Info) Description 05/26/2019 Abstract [facility] CONVERSIONS Dental, Provider, DDS Social History Tobacco Use Types Packs/Day Years [...] Description 07/22/2024 10:30 AM EDT Clinical Support [facility] CHC MED & PEDS [address] [place] [address] Amanda Fernández, AALIYAH 505 [place] [address] 08/03/2024 10:00 AM EDT Office Visit [facility] MEDICINE 230 [place], [place] [phone] Pascual Daly MD 230 [place] [address] documented as of this encounter Visit Diagnoses Not on filedocumented in this encounter Care Teams Director Of Testing Relationship Specialty Start Date End Date Pascual Daly MD [address] [place] [address] PCP - General Internal Medicine 02/22/14 Fani Heck, Woody [address] [place] [address] Pharmacist Internal Medicine 12/16/22 documented as of this encounter
--- OUTSIDE RECORDS SUMMARY | 2024-05-18 10:54 | XMS_ITS | Encounter Summary ---
Author Organization [employer] Address 75 [facility] 7t [place] [address] Care Team Providers Care Sales Merchandising Specialist Name Role Phone Pascual Daly MD Primary Care Provide r Fani Heck PharmD Unavailable [phone] Encounter Details Date Type Department Care Team (Late st Contact Info) Description 03/11/2022 Abstract [facility] MEDICINE [address] [place] [address] Fani Heck, PharmD 230 [place] [address] Social History Tobacco Use Types Packs/Day Years [...] 07/22/2024 10:30 AM EDT Clinical Support [facility] CHC MED & PEDS [address] [place] [address] Amanda Fernández, AALIYAH 505 [place] [address] 08/03/2024 10:00 AM EDT Office Visit [facility] MEDICINE 230 [place] [address] Pascual Daly MD [address] [place] [address] documented as of this encounter Visit Diagnoses Not on filedocumented in this encounter Care Teams Sales Merchandising Specialist Relationship Specialty Start Date End Date Pascual Daly MD [address] [place] [phone] PCP - General Internal Medicine 02/22/14 Fani Heck, KristiD [address] [place] [phone] Pharmacist Internal Medicine 12/16/22 documented as of this encounter
--- OUTSIDE RECORDS SUMMARY | 2024-05-18 10:54 | XMS_ITS | Encounter Summary ---
Author Organization [employer] Address 75 [facility] 7t [place] [address] Care Team Providers Care Tire Recapping Machine Operator Name Role Phone Pascual Daly MD Primary Care Provide r Fani Heck PharmD Unavailable [phone] Reason for Visit * Reason Onset Date Comments FYI 11/06/2023 Encounter Details Date Type Department Care Team ([facility] st Contact Info) Description 11/06/2023 Telephone [facility] MEDICINE [address] [place] [address] Pascual Daly MD [address] [place] [address] FYI Social History Tobacco Use Types Packs/Day [...] * Telephone Encounter - Coni Pollard - 11/06/2023 4:39 PM EDT Tc from [facility] I[facility] CORDERO PT informing pt has started services For PT 11/06/23 documented in this encounter Plan of Treatment Upcoming Encounters Date Type Department Care Team (Late st Contact Info) Description 07/22/2024 10:30 AM EDT Clinical Support [facility] CHC MED & PEDS [address] [place] [address] Amanda Fernández RN 505 [place] [address] 08/03/2024 10:00 AM EDT Office Visit [facility] MEDICINE [address] [place] [address] Pascual Daly MD [address] [place] [address] documented as of this encounter Goals Goal [...] documented as of this encounter Care Teams Tire Recapping Machine Operator Relationship Specialty Start Date End Date Pascual Daly MD [address] [place] [address] PCP - General Internal Medicine 02/22/14 Fani Heck, PharmD [address] [place] [address] Pharmacist Internal Medicine 12/16/22 documented as of this encounter
== END 2024-05-18 10:50 | disposition home or self-care (01) ==
PROVIDERS: PCP Internal Medicine; Visit Provider Nurse Practitioner Adult Health
DX: E10.649 Type 1 diabetes mellitus with hypoglycemia without coma (principal)
CPT/HCPCS: 95251; 99214; G2211

== ENCOUNTER → 2024-05-18 10:05 | Outpatient (BNVA) | payer OTHER, SELFPAY | PROVIDERS: PCP Internal Medicine; Visit Provider Nurse Practitioner Adult Health | DX: E10.65 Type 1 diabetes mellitus with hyperglycemia (principal); E10.649 Type 1 diabetes mellitus with hypoglycemia without coma; R35.0 Frequency of micturition; R35.1 Nocturia; R63.1 Polydipsia; Z79.4 Long term (current) use of insulin | CPT/HCPCS: 82947; 83036; 99212 ==

== ENCOUNTER 2024-06-04 10:52 | Outpatient (AMB) | payer OTHER, SELFPAY ==
--- NOTE | 2024-06-04 07:46 | A.OFFVIS_ITS ---
Vital Signs 06/04/24 11:05 Height 4 ft 11 in Weight 147 lb 11.355 oz BMI 29.8 BP 138/60 Blood Pressure Location Rt brachial Position Sitting Pulse 69 Pulse Source Pulse Oximeter Intake Visit Reasons: DM Intake Note: Patient presents today for a follow-up on Type 1 Diabetes Mellitus: Last Diabetic eye exam was on: 01/20/2024 Last Podiatry exam was on: Patient does not see a Enamel Finisher Most recent HbA1c: 8.6%, 05/18/2024 Random Glucose- 121 mg/dL, Today Cartographic Drafter Required: Yes Cartographic Drafter Language: Gas Utility Worker Services: Cartographic Drafter Present Cartographic Drafter Name: RADHA Tao/RAJ VICENTE Information Interpreted: non-clinical & clinical Accompanied by: GRAPHIC DESIGN SPECIALIST Allergies lorazepam [LORAZEPAM] Allergy (Severe, Verified 06/04/24 11:07) DELIRIUM celecoxib [From Celebrex] Allergy (Intermediate, Verified 06/04/24 11:07) ITCHING tramadol [TRAMADOL] Allergy (Intermediate, Verified 06/04/24 11:07) ITCHING zolpidem [Ambien] Allergy (Unknown, Verified 06/04/24 11:07) unknown HPI Comments Details: Patient is a 74-year-old female with DM type 1 diagnosed at 40 years of age, initially thought to have type 2 diabetes, who presents for management of diabetes. A1C 02/18/24 7.9%, 09/2023 8% down from previous 8.8%. She does report a history of hypoglycemic coma in the past. She had a low sugar in the 20s and was hospitalized for 1 day earlier in 2023. Her sliding scale was significantly reduced at this time. She was hospitalized last year multiple rib fractures after a fall. She is followed by Rheumatology and is on IV Reclast yearly. Her history indicates hyperparathyroidism secondary to low vitamin-D. Vitamin d was last checked in January and was in good range. Pending hand surgery awaiting A1c. Surgeon Rose Aggarwal [phone] She had been on Levothyroxine 112 mcg daily. 0.03 on 02/17/24. Levothyroxine was reduced to 100mcg Needs repeat testing. Current medication: Tresiba 16 units Fiasp 80-100 eat first and take 2 units 101-200 5 unit 201-250 6 units 251-300 7 units Over 300 9 unit Micro and macrovascular complications: CAD She wanted to go on either a VGO (not approved for type 1) or a CeQur insulin patch but was not able to do a return demonstration of the correct amount of clicks to give the correct dosing despite several attempts and re instruction. Dexcom average glucose: 246 14 day continuous glucose monitor report reviewed Glucose Managment indicator 9.2 % Days with CGM data 92 % TIme in ranges: 45 % very high (above 250) 35 % high ?(181-250) 18 % in range ?(70-180] 1 % low (69-55) 0 % ?very low (below 54) 80 Standard Deviation Interpretation postprandial highs Symptoms reported: denies numbness, tingling, cramping in lower extremities Hypoglycemia: since last visit: she has nightly snack at bedtime 1/2 cup Hyperglycemia: + urinary frequency, +nocturia, +polydypsia Exercise: denies Center Manager - CDE education Enamel Finisher: in past would like referral Ophthalmology evaluation:last eye exam 12/2023 mild retinopathy she is to schedule an appt with retinal specialist Other specialists: manager sales training, neurologist, Dr. Tang, Rheumatology Osteoporosis is being managed via annual reclast infusion through Rheumatology. Patient has a h/o hyperparathyroism secondary to vitamin D deficiency. PTH is elevated despite normal calcium and vitamin D. She has had several rib fractures. [facility] Medical History Hypoglycemia due to insulin Elevated parathyroid hormone Osteoporosis Hyperlipidemia (04/21/1959) Depressive disorder (04/21/1959) Nutritional anemia (04/21/1959) Shortness of breath Hypothyroidism (04/21/1959) Anemia Chronic gastritis Heart palpitations NSTEMI (non-ST elevated myocardial infarction) Recurrent falls (12/04/11) Iron deficiency anemia (04/21/1959) Fibromyositis (04/21/1959) Eczema (04/21/1959) High risk medication use Hepatitis C antibody positive in blood Screening for osteoporosis Screening for viral disease Joint swelling Overweight (BMI 25.0-29.9) Neck pain Swelling of knee joint, right Intra-abdominal abscess Diabetes Elevated liver function tests Intestinal malabsorption following gastrectomy Obesity (BMI 30-39.9) 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 Hypertension Cholecystitis Hyperlipidemia, unspecified Essential hypertension Atherosclerotic cardiovascular disease Fibromyalgia Folliculitis Anxiety Depression History of myocardial infarction Diabetes type 1, uncontrolled 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 Mother CVA (cerebral vascular accident) Sister Hypertension Brother Hypertension Liver cancer Social History Household Members: None Housing: Apartment Are you a primary career services officer to a significant other at home: No Do you presently have visiting nurse or other home services: Yes Unable to assess alcohol history related to: Unable to respond Alcohol intake: never Patient Tobacco Use Status: Never used Tobacco Advance Directives Date on File: 09/17/23 service: No Current occupational status: disabled Current occupation: right hand dominant Physical Exam Vital Signs: Last Vital Signs Pulse 69 06/04/24 11:05 BP 138/60 06/04/24 11:05 BMI result Body Mass Index 29.8 Const Other: Absence of Cushingoid features. Absence of acromegalic features. Neck exam reveals nl size thyroid about 15 gms. No thyroid nodules palpable. Lungs CTA. Heart S1 S2, Reg R/R. No M/R G. Skin exam reveals absence of vitiligo or acanthosis nigricans. No edema foot exam deferred today Results Reviewed Results Reviewed: Laboratory Last Values Glucose (Clinic) 121 mg/dL (60-115) H 06/04/24 11:14 Assessment & Plan Assessment & Plan (1) Diabetes type 1, uncontrolled: Code(s): E10.65 - Type 1 diabetes mellitus with hyperglycemia Category: Medical Qualifiers: Coma presence: without coma Glycemic state: with hypoglycemia Qualified Code(s): E10.649 - Type 1 diabetes mellitus with hypoglycemia without coma Plan: 74-year-old type 1 diabetic with a history of severe hypoglycemia. Most recent A1C 8.6% 05/05/24. sensor average 246 last two weeks with post prandial excursions. A1C of 8% is a reaonable target in this patient with a history of severe hypoglycemia to the 20's requiring hospitalization in 2023. New dosing: Tresiba 18 units Fiasp 80-100 eat first and take 2 units 101-150 5 unit 151-200 6 units 201-250 7 units 251-300 9 units Over [address] Sprague see the patient in one week to macie review sensor download as she is waiting to have surgery on a trigger finger. target A1C with this patient should not be lower than 8% due to h.o severe hypoglycemia (2) Hyperparathyroidism due to vitamin D deficiency: Code(s): E21.1 - Secondary hyperparathyroidism, not elsewhere classified Category: Medical Plan: h/o hyperparathyroidism secondary to low vitamin D. Patient was asked to have labs done before next visit. 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 Due for recheck. 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
[2024-06-04 11:05] VITALS: BP 138/60; PULSE 69; BMI 29.8
[2024-06-04 11:19] LABS: Glucose, Whole Blood 121 mg/dL (60-115)
--- OUTSIDE RECORDS SUMMARY | 2024-06-04 11:48 | XMS_ITS | Encounter Summary ---
Author Organization [employer] Address [address] [place] [address] Care Team Providers Care Fire Control Assistant Name Role Phone Pascual Daly MD Primary Care Provide r Fani Heck PharmD Unavailable [phone] Reason for Visit * Reason Comments Med Refill Encounter Details Date Type Department Care Team (Late st Contact Info) Description 08/26/2023 Refill [facility] [address] [place] [address] [phone] Momo Rizo MD [address] [place] [phone] Benign hypertension Social History Tobacco Use Types [...] Description 07/22/2024 10:30 AM EDT Clinical Support [facility] [address] [place] [address] Amanda Fernández, AALIYAH [address] [place] [address] 08/03/2024 10:00 AM EDT Office Visit [facility] MED[facility] [address] [place] [address] Pascual Daly MD [address] [place] [phone] documented as of this encounter Goals Goal [...] documented as of this encounter Care Teams Fire Control Assistant Relationship Specialty Start Date End Date Pascual Daly MD [address] [place] [phone] PCP - General Internal Medicine 02/22/14 Fani Heck, KristiD [address] [place] [phone] Pharmacist Internal Medicine 12/16/22 documented as of this encounter
--- OUTSIDE RECORDS SUMMARY | 2024-06-04 11:48 | XMS_ITS | Data Portability ---
Author Organization [facility], Main Office Address [address], [address] [place] [address] Care Team Providers Care Fingernail Former Name Role Phone MARII MASSEY Primary Care Provider [facility] OTHER Assessment No assessment recorded. Plan of Treatment Reminders Order Date Submit Date Provider Last Modified By Organization Details Last Modified Time Details Appointments None recorded. Lab None recorded. Referral None recorded. Procedures None recorded. Surgeries None recorded. Imaging None recorded. Medication Orders oxycodone 5 mg tablet 2023 024 [facility] , [address] [place] [address], [address], 4 21:23:28 oxycodone 5 mg tablet 2023 024 [facility] , [address] [place] [address], [address], 4 13:28:18 Patient TargetsNo targets recorded. Patient InstructionsNo instructions recorded. Reason for Referral None Reported. 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 Dori Pena NP [address] [facility], [address], [place], [address], [facility] [place] 4 15:49:21 Hypertensive disorder 54722182 Active 2023 Dori Pena NP [address], [address], [place], [address], [facility] 4 15:49:57 Gastroesophage al reflux disease 057466696 Active 2023 Dori Pena NP [address], [address], [place], [address], [place] [facility] 4 15:51:24 Rheumatoid arthritis 15964585 Active 2023 Dori Pena NP [address], [address], [place], [address], [facility] 4 15:51:29 Mixed anxiety and depressive disorder 953039937 Active 2023 Dori Pena NP [address], [address], [place], [address], [place] [facility] 4 15:51:45 Obesity 300787905 Active 2023 Dori Pena NP [address], [address], [place], [address], [facility] 4 15:51:51 Closed flail chest 829471779 Active 2023 Dori Pena NP [address], [address], [place], [address], [facility] 4 15:52:35 Asthenia 77283418 Active 2023 Dori Pena NP [address], [address], [place], [address], [facility] 4 15:52:46 Irritable bowel syndrome 72491702 Active 2023 Dori Pena NP [address], [address], [place], [address], [facility] 4 16:06:46 Recurrent falls 681540190 Active 2023 Dori Pena NP [address], [address], [place], [address], [facility] 4 16:38:03 Problem Notes None recorded. Procedures Surgical History Date Name Laterality Status Provider Name and Address Organization Details Recorded Time bypass gastroenterostomy completed Dori Pena, AAKASH [address], [place], [address], [facility] 09/17/2023 15:40:41 Laparoscopic cholecystectomy completed Dori Pena NP [address] [facility], [address], [place], [address], [facility] 09/17/2023 15:41:25 fixed suspension procedure of urinary bladder neck completed Dori Pena NP [address], [place], [address], [facility] 09/17/2023 15:42:01 Appendectomy completed Dori Pena NP [address], [place], [address], [facility] 09/17/2023 15:42:11 bilateral cataract surgery completed Dori Pena NP [address] [facility], [address], [place], [address], [facility] 09/17/2023 15:42:26 Imaging Results None recorded. Procedure Notes None recorded. Medical Equipment None Reported. Allergies Allergen ID Allergen Name Allergen Category Reaction Reaction Severity Criticality Documentation Date Start Date Code Code System Note Provider Name and Address Organization Details Recorded Time 89740 celecoxib medicatio n other Not available [facility]asse 09/17/2023 65761 7 RxNorm unkno wn Not Available Not Available Not Available 26520 lorazepam medicatio n other [facility] 09/17/2023 6470 RxNorm unkno wn Not Available Not Available Not Available 03713 tramadol medicatio n other Not available unabletoasse 09/17/2023 16169 RxNorm unkno wn Not Available Not Available Not Available 52414 zolpidem medicatio n other Not available unabletoasse 09/17/2023 73295 RxNorm unkno wn Not Available Not Available [...] Address Organization Details Last Updated DateTime 4 38615.7 8 g 98 /min 18 /min 97.8 [degF] 94 % 94 % 150 mm[Hg] 77 mm[Hg] Dori Pena NP [address] [facility] [address], [place], [address], [facility] 4 10:49:41 Date Recorded Body weight Heart rate Respiratory rate Body temperature Oxygen saturation Oxygen saturation in Arterial blood by Pulse oximetry Systolic blood pressure Diastolic blood pressure Provider Name and Address Organization Details Last Updated DateTime 4 68354.7 8 g 83 /min 18 /min 97 [degF] 98 % 98 % 148 mm[Hg] 74 mm[Hg] Dori Pena NP [address] [facility] [address], [place], [address], [facility] 4 13:29:12 Date Recorded Body weight Heart rate Respiratory rate Body temperature Oxygen saturation Oxygen saturation in Arterial blood by Pulse oximetry Systolic blood pressure Diastolic blood pressure Provider Name and Address Organization Details Last Updated DateTime 4 50987.7 8 g 76 /min 18 /min 97.8 [degF] 97 % 97 % 128 mm[Hg] 78 mm[Hg] Dori Pena NP [address] [facility] [address], [place], [address], [facility] 4 12:05:35 Date Recorded Body weight Heart rate Respiratory rate Body temperature Oxygen saturation Oxygen saturation in Arterial blood by Pulse oximetry Systolic blood pressure Diastolic blood pressure Provider Name and Address Organization Details Last Updated DateTime 4 39843 g 80 /min 18 /min 98 [degF] 95 % 95 % 111 mm[Hg] 60 mm[Hg] Dori Pena NP [address] [facility] [address], [place], [address], [facility] 4 11:40:36 Date Recorded Body weight Heart rate Respiratory rate Body temperature Oxygen saturation Oxygen saturation in Arterial blood by Pulse oximetry Systolic blood pressure Diastolic blood pressure Provider Name and Address Organization Details Last Updated DateTime 4 96669 g 74 /min 18 /min 98.4 [degF] 95 % 95 % 124 mm[Hg] 68 mm[Hg] Dori Pena NP [address] [facility], [place], [address], [facility] 4 13:12:09 Social History Question Answer Notes LastModified by Organizat ion Details LastModified Time Tobacco Smoking Status Never Smoker Dori Pena NP [address] [facility], [place], [address], [facility] [place] 09/17/2023 15:39:38 Do You Have An Advance [...] virus (RSV) vaccine, unspecified 4 completed Radha batista, [facility] [place] 09/19/2023 16:11:12 Tdap 4 completed Radha Stoll null, [facility] 09/19/2023 16:11:26 Td(adult) unspecified formulation 3 completed Radha Jerman null, [facility] 09/19/2023 16:11:43 Td(adult) unspecified formulation 3 completed Radha Jerman null, [facility] 09/19/2023 16:11:51 Pneumococcal conjugate PCV 13 6 completed Radha Jerman null, [facility] 09/19/2023 16:12:53 Pneumococcal conjugate PCV20, polysaccharide WEP528 conjugate, adjuvant, PF 4 completed Radha Stoll null, [facility] 09/19/2023 16:13:07 pneumococcal polysaccharide PPV23 1 completed Radha Stoll null, [facility] 09/19/2023 16:13:22 pneumococcal polysaccharide PPV23 4 completed Radha Jerman null, [facility] 09/19/2023 16:13:31 influenza, unspecified formulation 2 completed [facility]23 16:13:47 influenza, unspecified formulation 3 completed Radha Jerman null, [facility] 09/19/2023 16:13:55 MMR 8 completed Radha Jerman [facility], [facility] 09/19/2023 16:14:21 SARS-COV-2 (COVID-19) vaccine, UNSPECIFIED 1 completed Radha Jerman null, [facility] 09/19/2023 16:15:58 SARS-COV-2 (COVID-19) vaccine, UNSPECIFIED 1 completed Radha Jerman null, [facility] 09/19/2023 16:16:13 SARS-COV-2 (COVID-19) vaccine, UNSPECIFIED 1 completed [facility]/2023 16:16:27 SARS-COV-2 (COVID-19) vaccine, UNSPECIFIED 2 completed Radha Stoll [facility] 09/19/2023 16:17:15 SARS-COV-2 (COVID-19) vaccine, UNSPECIFIED 2 completed Radha Stoll [facility] 09/19/2023 16:21:38 zoster, unspecified formulation 5 completed Radha Stoll [facility] 09/19/2023 16:23:04 zoster, unspecified formulation 9 completed Radha [facility] 09/19/2023 16:23:18 zoster, unspecified formulation 9 completed [facility] 09/19/2023 16:25:18 Past Encounters Encounter ID Performer Location Encounter Start Date Encounter Closed Date Diagnosis/Indication Diagnosis SNOMED-CT Code Diagnosis ICD10 Code Diagnosis Note [id number] Dori Pena NP [address] [address] 09/17/2023 15:22:09 09/23/2023 14:50:24 Closed flail chest 384678059 S22.5XXD with multiple rib fractures and clavicular fracturewa s evaluated by thoracic surgery and felt non operatable pain management oxycodone 5 mg po q 4hours prnoxycont in 10 mg po ER bidgabapen tin 100 mg po bidwean over next few weeksalbut edward 2 puff q 4-6 hours ched duoneb qidrobitus sin 10 ml po [...] If stable no further workup needed. Asthenia 97973837 R53.1 with notable weakness due to injuryPT OT eval and treatsuppo rtive caremonito r Type 1 frank betes mellitus 16980015 E10.9 tresiba 30 unit sc qhsinsulin 2-14 SSI sc qidhsmonit or BS and adjust as needed Hypertensive disorder 38 639290 I10 not on meds for thisamlodi pine 10 mg po dailylosar zaragoza 100 mg po dailymonit or bp/vitals 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 856127 E06.3 levothyrox ine 112 mcg dailymonit or tsh as needed Gastroesop hageal reflux disease 559390972 K21.9 esomeprazo le 40 mg o daily Obesity 679020845 E66.9 stucco worker to consultsup portive careportio n controlmon itor weight Mixed anxi ety and depressive disorder 491744463 F41.8 aripiprazo le 20 mg dailyvenla faxine 150 mg po dailyprazo sin 6 mg po qhsmelaton in 3 mg po qhshydroxy zine 10 mg po q 8 hours prn anxietyclo nazepam 0.5 mg po q 8 hours prn anxietycar vedilol 6.25 mg po bidmonitor Rheumatoid arthritis 698 21151 M06.9 enbrel 50 mg sc q 7dayscalci um citrate 400 mg po bidmonitor for reliefsee pain management above with flail chest Irritable bowel syndrome 47970559 K58.9 ? IBSlinzess 290 mcg q ammonitor Deficiency anemias 10537 3007 D53.9 folic acidvit [id number] Coronary arteriosclerosis 78093240 I25.10 hx of MIatorvast atin 20 mg po dailyclopi dogrel 75 mg po q amsee above htn medsmonito r Recurrent falls 72836030 2 R29.6 reports history of falls with marble cutter operator at home to help her and balance issuesrepo rts more than 5 falls/year supportive caremonito r [id number] JESSICA HINDS NP [place] [address] [place] [address] 09/18/2023 13:29:08 09/23/2023 15:13:15 Closed flail chest 242877636 S22.5XXD with multiple rib fractures and clavicular [...] If stable no further workup needed. Asthenia 40873937 R53.1 with notable weakness due to injuryPT OT eval and treatsuppo rtive caremonito r Type 1 frank betes mellitus 60616857 E10.9 A1C 8.8%Contin eu:tresiba 30 unit sc qhsinsulin 2-14 SSI sc qidmonitor BS and adjust as needed Hypertensive disorder 38 643392 I10 amlodipine 10 mg po dailylosar zaragoza 100 mg po dailycoreg 6.25 mg bidmonitor bp/vitals 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 606999 E06.3 levothyrox ine 112 mcg dailymonit or tsh as needed Gastroesop hageal reflux disease 408007743 K21.9 esomeprazo le 40 mg o daily Deficiency anemias 27076 3007 D53.9 folic acidvit [id number] Obesity 474342041 E66.9 stucco worker to consultsup portive careportio n controlmon itor weight Mixed anxi ety and depressive disorder 066751035 F41.8 aripiprazo le 20 mg dailyvenla faxine 150 mg po dailyprazo sin 6 mg po qhsmelaton in 3 mg po qhshydroxy zine 10 mg po q 8 hours prn anxietyclo nazepam 0.5 mg po q 8 hours prn anxietymon itor Rheumatoid arthritis 698 24031 M06.9 enbrel 50 mg sc q 7dayscalci um citrate 400 mg po bidmonitor for reliefsee pain management above with flail chest Irritable bowel syndrome 12414037 K58.9 ? IBSlinzess 290 mcg q ammonitor Coronary arteriosclerosis 02103026 I25.10 hx of MIatorvast atin 20 mg po dailyclopi dogrel 75 mg po q amsee above htn medsmonito r Recurrent falls 86245527 2 R29.6 reports history of falls with marble cutter operator at home to help her and balance issuesrepo rts more than 5 falls/year supportive caremonito r [id number] Dori Pena NP [facility] [address] [address] 09/22/2023 14:27:57 09/29/2023 19:16:34 Closed flail chest 708340586 S22.5XXD with multiple rib fractures and clavicular [...] If stable no further workup needed. Asthenia 51738915 R53.1 with notable weakness due to injuryPT OT eval and treatsuppo rtive caremonito r Type 1 frank betes mellitus 63116811 E10.9 BS 81-252 wceuxyL9X 8.8%contin ue:tresiba 30 unit sc qhsinsulin 2-14 SSI sc qidmonitor BS and adjust as needed Hypertensive disorder 38 283291 I10 improving lately, boderline highcontam lodipine 10 mg po dailylosar zaragoza 100 mg po dailycoreg 6.25 mg bidmonitor bp/vitals 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 408182 E06.3 contlevoth yroxine 112 mcg dailymonit or tsh as needed Gastroesop hageal reflux disease 583311554 K21.9 esomeprazo le 40 mg o daily Deficiency anemias 70563 3007 D53.9 folic acidvit n37zpdaoit Obesity 647463700 E66.9 stucco worker to consultsup portive careportio n controlmon itor weight Mixed anxi ety and depressive disorder 919879739 F41.8 contaripip razole 20 mg dailyvenla faxine 150 mg po dailyprazo sin 6 mg po qhsmelaton in 3 mg po qhshydroxy zine 10 mg po q 8 hours prn anxietyclo nazepam 0.5 mg po q 8 hours prn anxietymon itor Rheumatoid arthritis 698 81464 M06.9 enbrel 50 mg sc q 7dayscalci um citrate 400 mg po bidmonitor for reliefsee pain management above with flail chest Irritable bowel syndrome 71015624 K58.9 ? 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 operator at home to help her and balance issuesrepo rts more than 5 falls/year supportive caremonito r Acute cystitis 15233356 N30.00 reports dysuria and occassiona l incontinen ce latelyurin e culture returned showing > 100,000 klebsiella pneumo ssp and started on ceftriaxon e 1gram IM and cefpodoxim e 200 mg po bid x 7 days with probiotic by on provider over the weekend.mo nitor [id number] Jonel Alamo MD [address] [address] 09/23/2023 11:01:43 09/29/2023 19:25:59 Closed fracture of multiple left ribs 4401442594 7663591 S22.42XG see HPIleft rib fxs 2-6 with concern for flail chest , with clavicular fxeval by surgery with no interventi on indicatedm onitor respirator y statusutil ize incentive spirometer monitor for pain controlupd ate surgery with concerns Asthenia 16420811 R53.1 PT OT eval and treatmonit or need for increased support in community Type 1 frank betes mellitus 09575657 E10.9 tresiba 30 units qdSS insulinmon itor glucose and need to titrate Hypertensive disorder 38 392175 I10 norvasc 10 mg qdcoreg 6.25 mg bidlosarta n 100 mg qdcurrentl y elevatedmo nitor need for increased control 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 151051 E06.3 hx of added to PMHmaintai priscilla onsynthroi d 112 mcg qdmonitor tsh prn Gastroesop hageal reflux disease 403971783 K21.9 nexium 40 mg qd continuedm onitor for effect Obesity 316171415 E66.09 dietary eval in patient with baseline DM Mixed anxi ety and depressive disorder 103288064 F41.8 carrying dx requiring multiple medication swill continue out patient medication s includinga bility and ativanmoni tor moodpsych eval prn Rheumatoid arthritis 698 69501 M06.9 remains onenbrel 50 mg q friday Irritable bowel syndrome 84044474 K58.9 ? 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 operator at home to help her and balance issuesrepo rts more than 5 falls/year supportive caremonito r Solitary n odule of lung 585936252 R91.1 question right 4 mm upper lobe nodulecons ider repeat scan in 6-12 months Primary insomnia 7826936 F51.01 continue melatoninm onitor need to titrate Abnormal weight loss 267 749689 R63.4 weight dropped > 12 lbs in a few days from admitappea rs to be error in initial intake weightwill monitor Acute cystitis 48027865 N30.00 now on cefpodoxim e to complete coursemoni tor for recurrent disease [id number] Dori Pena NP [facility] [address] [place] [address] 09/24/2023 09:21:20 09/29/2023 19:39:42 Closed fracture of multiple left ribs 5400430943 2965698 S22.42XG with multiple rib fractures and clavicular [...] in am off pmadjust as needed. Asthenia 59887790 R53.1 PT OT eval and treatmonit or need for increased support in community Type 1 frank betes mellitus 47074480 E10.9 BS controlled conttresib a 30 units qdSS insulinmon itor glucose and need to titrate Hypertensive disorder 38 642933 I10 stable on below regimennor vasc 10 mg qdcoreg 6.25 mg bidlosarta n 100 mg qdcurrentl y elevatedmo nitor need for increased control 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 723319 E06.3 hx of added to PMHmaintai priscilla onsynthroi d 112 mcg qdmonitor tsh prn Gastroesop hageal reflux disease 259745192 K21.9 nexium 40 mg qd continuedm onitor for effect Obesity 400771096 E66.09 dietary eval in patient with baseline DM Rheumatoid arthritis 698 96173 M06.9 remains onenbrel 50 mg q friday Irritable bowel syndrome 29429860 K58.9 ? 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 at home to help her and balance issuesrepo rts more than 5 falls/year supportive caremonito r Primary insomnia 1767267 F51.01 continueme latoninmon itor need to titrate Abnormal weight loss 267 542333 R63.4 weight dropped > 12 lbs in a few days from admitappea rs to be error in initial intake weight6/ reweigh pt todaywill monitor Acute cystitis 72414174 N30.00 now on cefpodoxim e to complete courseaysm ptomaticmo nitor for recurrent disease [id number] Dori Pena, AAKASH [facility] [address] [place] [address] 09/29/2023 10:39:23 10/03/2023 11:24:38 Closed fracture of multiple left ribs 2684289871 6861614 S22.42XG with multiple rib fractures and clavicular [...] to left shoulderad just as needed. Asthenia 20205331 R53.1 PT OT eval and treatmonit or need for increased support in community Type 1 frank betes mellitus 13542983 E10.9 BS controlled conttresib a 30 units qdSS insulinmon itor glucose and need to titrate Hypertensive disorder 38 243028 I10 stable on below regimen with slightly high bp likley related to pain, monitorcon tnorvasc 10 mg qdcoreg 6.25 mg bidlosarta n 100 mg qdcurrentl y elevatedmo nitor need for increased control 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 641656 E06.3 hx of added to PMHmaintai priscilla onsynthroi d 112 mcg qdmonitor tsh prn Gastroesop hageal reflux disease 118197471 K21.9 contnexium 40 mg qdmonitor for effect Obesity 739806160 E66.09 dietary evalbaseli ne DMweight today please Rheumatoid arthritis 698 92379 M06.9 remains onenbrel 50 mg q friday Irritable bowel syndrome 71016566 K58.9 ? 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 at home to help her and balance issuesrepo rts more than 5 falls/year supportive caremonito r Primary insomnia 4293936 F51.01 continueme latoninmon itor need to titrate Abnormal weight loss 267 348949 R63.4 weight dropped > 12 lbs in a few days from admitappea rs to be error in initial intake weight6/10 reweigh pt todaywill monitor Acute cystitis 42084342 N30.00 resolved cefpodoxim e to complete courseaysm ptomaticmo nitor for recurrent disease Mixed anxi ety and depressive disorder 644413715 F41.8 contaripip razole 20 mg dailyvenla faxine 150 mg po dailyprazo sin 6 mg po qhsmelaton in 3 mg po qhshydroxy zine 10 mg po q 8 hours prn anxiety6/1 0 renew clonazepam 0.5 mg po q 8 hours prn anxietymon itor [id number] [facility] [address] 10/02/2023 13:28:32 10/07/2023 10:08:18 Hypertensive disorder 07210475 I10 stable on below regimen as it comes down to 120s systolic post medication contnorvas c 10 mg qdcoreg 6.25 mg bidlosarta n 100 mg qdmonitor need for increased control Closed fra cture of multiple left ribs 1288327405 3394374 S22.42XG with left rib fxs 2-6 with [...] OT eval and txadjust as needed. Asthenia 60294966 R53.1 PT OT eval and treatmonit or need for increased support in community Type 1 frank betes mellitus 46855019 E10.9 BS controlled glucernaco nttresiba 30 units qdSS insulinmon itor glucose and need to titrate Gastroesop hageal reflux disease 992237415 K21.9 contnexium 40 mg qdmonitor for effect Rheumatoid arthritis 698 35783 M06.9 remains onenbrel 50 mg q friday Irritable bowel syndrome 13364100 K58.9 ? IBSlinzess 290 mcg q ammonitor Coronary arteriosclerosis 72767303 I25.10 hx of MIcoreg 6.25 mg po bidatorvas tatin 20 mg po dailyclopi dogrel 75 mg po q amsee above htn medsmonito r Recurrent falls 03112201 2 R29.6 reports history of falls with marble cutter operator at home to help her and balance issuesrepo rts more than 5 falls/year supportive care and therapy here for balance, strengthen ing, gait, mobility, endurancem onitor Abnormal weight loss 267 620780 R63.4 weight dropped > 12 lbs in a few days from admitappea rs to be error in initial intake weight09/28 reweigh pt today10/01 reweight pt today, no weight since 09/21will monitor Mixed anxi ety and depressive disorder 100378211 F41.8 contaripip razole 20 mg dailyvenla faxine 150 mg po dailyprazo sin 6 mg po qhsmelaton in 3 mg po qhshydroxy zine 10 mg po q 8 hours prn anxiety6/ 0 renew clonazepam 0.5 mg po q 8 hours prn anxiety x 14 days10/01 cont as abovemonit or [id number] Dori Pena NP [facility] [address] [facility] [place] [address] 10/06/2023 12:02:36 10/09/2023 09:34:42 Closed fracture of multiple left ribs 6840580862 8969162 S22.42XG with left rib fxs 2-6 with [...] txadjust as needed. Abnormal weight loss 267 991508 R63.4 weight dropped > 12 lbs in a few days from admitappea rs to be error in initial intake weight10/04 160 lbs which is same as 09/22/23will monitor Hypertensive disorder 38 655783 I10 stable on below regimen as it comes down to 120s systolic post medication contnorvas c 10 mg qdcoreg 6.25 mg bidlosarta n 100 mg qdmonitor need for increased control Asthenia 63682851 R53.1 PT OT eval and treatmonit or need for increased support in community Type 1 frank betes mellitus 58819553 E10.9 pt having syrup and gingerale at [...] and need to titrate Rheumatoid arthritis 698 78035 M06.9 remains onenbrel 50 mg q friday Irritable bowel syndrome 04463451 K58.9 with constipati on today, states many days10/05 mon given today, will do supp if no bm by 4 pm10/05 start senna 8.6 mg po daily? IBSlinzess 290 mcg q ammonitor Coronary arteriosclerosis 28064705 I25.10 hx of MIcoreg 6.25 mg po bidatorvas tatin 20 mg po dailyclopi dogrel 75 mg po q amsee above htn medsmonito r Mixed anxi ety and depressive disorder [id number] F41.8 contaripip razole 20 mg dailyvenla faxine 150 mg po dailyprazo sin 6 mg po qhsmelaton in 3 mg po qhshydroxy zine 10 mg po q 8 hours prn anxiety09/19 0 renew clonazepam 0.5 mg po q 8 hours prn anxiety x 14 days10/01 cont as above10/05 stable today with above planmonito r [id number] [facility] [address] 10/08/2023 11:40:06 10/15/2023 15:50:32 Type 1 diabetes mellitus 24305689 E10.9 pt having syrup and gingerale at [...] and need to titrate Irritable bowel syndrome 37397072 K58.9 with constipati on resolved with mom on 7 mon given today10/05 start senna 8.6 mg po daily? IBSlinzess 290 mcg q am10/07 having bm regularly nowmonitor Closed fra cture of multiple left ribs [id number] [id number] S22.42XG with left rib fxs 2-6 with [...] txadjust as needed. Abnormal weight loss 267 355746 R63.4 weight dropped > 12 lbs in a few days from admitappea rs to be error in initial intake weight10/04 160 lbs which is same as 09/22/23, ? incorrect admit weight but seems [facility] Hypertensive disorder 38 338811 I10 stable on below regimen as it comes down to 120s systolic post medication contnorvas c 10 mg qdcoreg 6.25 mg bidlosarta n 100 mg qdmonitor need for increased control Asthenia 40058764 R53.1 PT OT eval and treatmonit or need for increased support in community Rheumatoid arthritis 698 12469 M06.9 remains onenbrel 50 mg q friday Coronary arteriosclerosis 72754967 I25.10 hx of MIcoreg 6.25 mg po bidatorvas tatin 20 mg po dailyclopi dogrel 75 mg po q amsee above htn medsmonito r Mixed anxi ety and depressive disorder 019957673 F41.8 contaripip razole 20 mg dailyvenla faxine 150 mg po dailyprazo sin 6 mg po qhsmelaton in 3 mg po qhshydroxy zine 10 mg po q 8 hours prn anxiety/ 0 renew clonazepam 0.5 mg po q 8 hours prn anxiety x 14 days10/01 cont as above10/05 stable today with above plan10/07 stable today with above planmonito r Hyperkalemia 47402305 E8 7.5 k of 5.7 on give kayexalate 15 gm today10/08 bmp in ammonitor for additional e lyte abbormalit ies [id number] Dori Pena NP [address] [address] 10/09/2023 13:08:06 10/15/2023 16:27:22 Closed fracture of multiple left ribs [id number] 9923745 S22.42XG resolving with left rib fxs 2-6 [...] prnadjust as needed outpt with pcp Hyperkalemia 63643863 E8 7.5 k of 5.7 on give kayexalate 15 gm on 10/07monito r for additional e lyte abnormalit ies outpt with pcp Type 1 frank betes mellitus 97024220 E10.9 BS slightly high while at rehab with eating sugary foods/drin ksPlan: diet sodas and diet syrup and less sugary choicescon tglucernat resiba 30 units qdSS insulin with meals as per home schedmonit or glucose and need to titrate outpt with pcp outpt Irritable bowel syndrome 13604400 K58.9 with constipati on resolvedse nna 8.6 mg po daily (started at rehab)? IBSlinzess 290 mcg q ammonitor with pcp outpt Abnormal weight loss 267 146824 R63.4 weight dropped > 12 lbs in a few days from admitappea rs to be error in initial intake weight10/04 160 lbs which is same as 09/22/23, ? incorrect admit weight but seems stable nowmonitor oupt with pcp Hypertensive disorder 38 621624 I10 stable on below regimen as it comes down to 120s systolic post medication contnorvas c 10 mg qdcoreg 6.25 mg bidlosarta n 100 mg qdmonitor need for increased control outpt with pcp Asthenia 01374001 R53.1 PT OT eval and treat outpt prnmonitor need for increased support in community with pcp Rheumatoid arthritis 698 41158 M06.9 remains onenbrel 50 mg q fridaymoni tor outpt with pcp Coronary arteriosclerosis 82777835 I25.10 hx of MIcoreg 6.25 mg po bidatorvas tatin 20 mg po dailyclopi dogrel 75 mg po q amsee above htn medsmonito r outpt wtih pcp Mixed anxi ety and depressive disorder 024197610 F41.8 contaripip razole 20 mg dailyvenla faxine 150 mg po dailyprazo sin 6 mg po qhsmelaton in 3 mg po qhshydroxy zine 10 mg po q 8 hours prn anxietyclo nazepam 0.5 mg po q 8 hours prn anxietymon itor outpt with pcp Gastroesop hageal reflux disease 867403802 K21.9 contnexium 40 mg qdmonitor for effect outpt with pcp Recurrent falls 77420993 2 R29.6 reports history of falls with marble cutter operator at home to help her and balance issuesrepo rts more than 5 falls/year supportive care and therapy here for balance, strengthen ing, gait, mobility, endurance outpt rpnmonitor outpt with pcp 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 491900 E06.3 hx of added to PMHmaintai priscilla onsynthroi d 112 mcg qdmonitor tsh prn with pcp Obesity 458000504 E66.09 dietary evalbaseli ne DMweight to be monitored with pcp outpt Primary insomnia 4013418 F51.01 continueme latoninmon itor need to titrate outpt Acute cystitis 60896855 N30.00 resolved cefpodoxim e to complete courseaysm ptomaticmo nitor for recurrent disease outpt with pcp Health Concerns Section Related Observation LastModified by Organization Detai ls LastModified Time None Recorded Concern Status LastModified by Organization Details LastModified Time None Recorded Advance Directives Directive N: Payers Encounter Date Sequence Insurance Name Policy Number Policy Patten Covered Member ID Patten Member ID Guarantor Name 09/29/2023 1 [facility] - DOS ON OR AFTER 2022 - MEDIC[place]V ANTAGE - PPO) Brandie Luevano [id number] Brandie Luevano 10/02/2023 1 [facility] - DOS ON OR AFTER 2022 - [place]V [place] - [place]PO) Brandie Luevano [id number] Brandie Luevano 10/06/2023 1 [facility] - DOS ON OR AFTER 2022 - [place]V ANT[place] - [place]PO) Brandie Tanga [id number] Brandie uLevano 10/08/2023 1 [facility] - DOS ON OR AFTER 2022 - [place]V [place] - [place]PO) Brandie Luevano [id number] Brandie Luevano 10/09/2023 1 [facility] - DOS ON OR AFTER 2022 - [place]V [place] - [place]PO) Brandie Luevano [id number] Brandie Luevano Notes Date Note Type Note [...] fall risk, uses a cane usually Dori Pena, AAKASH [address] [facility], [address], [place], [address], [place] [employer] 09/29/2023 11:09:33 10/02/2023 text/html Pt is seen [...] is sitting up in bed with her HOME FURNISHINGS SALES REPRESENTATIVE visiting. She has her sling in place [...] fall risk, uses a cane usually Dori Pena, AAKASH [address] [facility], [address], [place], [address], [facility] [employer] 10/02/2023 13:48:50 10/06/2023 text/html Pt is seen for a n acute rounding visit. Brandie is working here at [employer] and is feeling good and more mobile lately with left sling in place. She continues with therapy and making gains. She was treated for a UTI when she first came to [facility] and denies any urinary symptoms. Nursing [...] a cane usually Dori Pena NP [address] [facility], [address], [place], [address], [employer] 10/06/2023 12:26:22 10/08/2023 text/html Pt is seen [...] a UTI when she first came to [facility] and denies any urinary symptoms. Nursing [...] a cane usually Dori Pena NP [address] [facility], [address], [place], [address], [employer] 10/08/2023 12:05:52 10/09/2023 text/html Pt is seen [...] a UTI when she first came to [facility] and denies any urinary symptoms. Nursing [...] a cane usually Dori Pena NP [address] [facility], [address], [place], [address], [facility] [employer] [place] 10/09/2023 16:50:56 OBGyn Episode No OBEpisode recorded.
--- OUTSIDE RECORDS SUMMARY | 2024-06-04 11:48 | XMS_ITS | Encounter Summary ---
Author Organization [employer] Address [address] 7t [place] [address] Care Team Providers Care Folding Machine Tender Name Role Phone Pascual Daly MD Primary Care Provide r Fani Heck PharmD Unavailable [phone] Reason for Visit * Reason Comments Med Refill Encounter Details Date Type Department Care Team (Late st Contact Info) Description 03/27/2023 Refill [facility] [address] [place] [address] Titi Gray FNP Major depressive disorder with [...] 07/22/2024 10:30 AM EDT Clinical Support [facility] 505 [place] [address] Amanda Fernández, AALIYAH [address] [place] [address] 08/03/2024 10:00 AM EDT Office Visit [facility] MED[facility] [address] [place] [address] Pascual Daly MD [address] [place] [address] documented as of this encounter Goals Goal [...] documented as of this encounter Care Teams Folding Machine Tender Relationship Specialty Start Date End Date Pascual Daly MD [address] [place] [address] PCP - General Internal Medicine 02/22/14 Fani Heck, PharmD [address] [place] [address] Pharmacist Internal Medicine 12/16/22 documented as of this encounter
--- OUTSIDE RECORDS SUMMARY | 2024-06-04 11:49 | XMS_ITS | Encounter Summary ---
Author Organization [employer] Address [address] 7t [place] [address] Care Team Providers Care Mainspring Former Brace End Name Role Phone Pascual Daly MD Primary Care Provide r Fani Heck PharmD Unavailable [phone] Encounter Details Date Type Department Care Team (Late st Contact Info) Description 03/05/2024 Refill [facility] MEDICINE [address] [place] [address] Jefry Chun Benign hypertension; Type 2 diabetes mellitus without complication, with long-term current use of insulin ([facility]) Social History Tobacco Use Types Packs/Day Years [...] Upcoming Encounters Date Type Department Care Team ([facility] st Contact Info) Description 07/22/2024 10:30 AM EDT Clinical Support [facility] PEDS [address] [place] [address] Amanda Fernández RN [address] [place] [address] 08/03/2024 10:00 AM EDT Office Visit [facility] MED[facility] [address] [place] [address] Pascual Daly MD [address] [place] [address] documented as of this encounter Goals Goal Patient Goal Type Associated Problems Recent Progress Patient-Stated? Author Blood Pressure < 140/90 Blood Pressure 133/70( 025 11:28 AM EST) No Fani Heck, PharmD documented as of this encounter Visit Diagnoses Diagnosis Benign hypertension Essential hypertension, benign Type 2 diabetes mellitus without complication, with long-term current use of insulin ([facility]) documented in this encounter Additional Health Concerns Assessment Noted Time PHQ-9 Depression Total Score: 9 01/29/20 24 11:00 AM EDT documented as of this encounter Care Teams Mainspring Former Brace End Relationship Specialty Start Date End Date Pascual Daly MD [address] [place] [address] PCP - General Internal Medicine 02/22/14 Fani Heck, KristiD [address] [place] [address] Pharmacist Internal Medicine 12/16/22 documented as of this encounter
--- OUTSIDE RECORDS SUMMARY | 2024-06-04 11:49 | XMS_ITS ---
Author Organization [facility] Address [address] [place] [address] Care Team Providers Care Coat Joiner Lockstitch Name Role Phone Adolph Terry MD, Pascual [...] Problem Colon cancer screening (Z12.11) Active confirmed [id number] VITAL SIGNS BMI 31.35 kg/m2 11/24/2023 Blood pressure systolic 000 mm Hg 11/24/19 24 Blood pressure diastolic 00 mm Hg 024 Height 59 in 11/24/2023 Temperature 97.9 degrees Fahrenheit 11/24/19 24 Weight 155 lb 4 oz lbs 11/24/2023 Encounters Encounter Location Date Provider Diagnosis [facility] [address] [place] [address] 11/24/2023 Cortes Castillo Jr Gastroesophageal reflux disease [...] Name:Cortes wilburn Jr, 11/24/2024 09:20:00 AM, [address], [address], [place], [address],
--- OUTSIDE RECORDS SUMMARY | 2024-06-04 11:49 | XMS_ITS | Encounter Summary ---
Author Organization [employer] Address [address] 7t [place] [address] Care Team Providers Care Stave Machine Tender Name Role Phone Pascual Daly MD Primary Care Provide r Fani Heck PharmD Unavailable [phone] Reason for Visit * Reason Comments Med Refill Encounter Details Date Type Department Care Team (Late st Contact Info) Description 01/14/2024 Refill [facility] PEDS [address] [place] [address] Pascual Daly MD [address] [place], [place] [phone] Fibromyalgia Social History Tobacco Use Types Packs/Day [...] Description 07/22/2024 10:30 AM EDT Clinical Support [facility]S 505 [place] [address] Amanda Fernández, AALIYAH 505 [place] [address] 08/03/2024 10:00 AM EDT Office Visit [facility] MED[facility] 230 [place] [address] Pascual Daly MD [address] [place] [address] documented as of this encounter Goals Goal [...] documented as of this encounter Care Teams Stave Machine Tender Relationship Specialty Start Date End Date Pascual Daly MD [address] [place] [address] PCP - General Internal Medicine 02/22/14 Fani Heck, KristiD [address] [place] [address] [place] [phone] Pharmacist Internal Medicine 12/16/22 documented as of this encounter
--- OUTSIDE RECORDS SUMMARY | 2024-06-04 11:49 | XMS_ITS | Encounter Summary ---
Author Organization [employer] Address [address] [facility] 7t [place] [address] Care Team Providers Care Tile Setter Name Role Phone Pascual Daly MD Primary Care Provide r Fani Heck PharmD Unavailable [phone] Reason for Visit * Reason Comments Med Refill Encounter Details Date Type Department Care Team (Late Contact Info) Description 08/08/2022 Refill [facility] [address] [place] [address] Momo Rizo MD [address] [place] [address] Mild intermittent asthma without complication Social History [...] Support [facility] MED [facility] PEDS [address] [place] [address] Amanda Fernández, AALIYAH 505 [place] [address] 08/03/2024 10:00 AM EDT Office Visit [facility] MED[facility] [address] [place] [address] Pascual Daly MD [address] [place] [address] documented as of this encounter Goals Goal [...] documented as of this encounter Care Teams Tile Setter Relationship Specialty Start Date End Date Pascual Daly MD [address] [place] [address] PCP - General Internal Medicine 02/22/14 Fani Heck, PharmD [address] [place] [address] Pharmacist Internal Medicine 12/16/22 documented as of this encounter
--- OUTSIDE RECORDS SUMMARY | 2024-06-04 11:49 | XMS_ITS | Encounter Summary ---
Author Organization [employer] Address [address] 7t [place] [address] Care Team Providers Care Stick Inserter Name Role Phone Pascual Daly MD Primary Care Provide r Fani Heck PharmD Unavailable [phone] Reason for Visit * Reason Comments Med Refill Encounter Details Date Type Department Care Team (Late st Contact Info) Description 10/21/[address] [facility] MEDICINE [address] [place] [address] Titi Gray FNP Major depressive disorder with [...] Description 07/22/2024 10:30 AM EDT Clinical Support [facility] MED & PEDS [address] [place] [address] Amanda Fernández RN 505 [place] [address] 08/03/2024 10:00 AM EDT Office Visit [facility] MEDICINE [address] [place] [address] Pascual Daly MD [address] [place] [address] documented as of this encounter Goals Goal [...] documented as of this encounter Care Teams Stick Inserter Relationship Specialty Start Date End Date Pascual Daly MD [address] [place] [address] PCP - General Internal Medicine 02/22/14 Fani Heck, PharmD [address] [place] [address] Pharmacist Internal Medicine 12/16/22 documented as of this encounter
--- OUTSIDE RECORDS SUMMARY | 2024-06-04 11:49 | XMS_ITS ---
Author Organization [facility] Address [address] [place] [address] Care Team Providers Care Patent Solicitor Name Role Phone Adolph Terry MD, Pascual Primary Care Provide r Vidal Castillo Jr, Cortes Unavailable Zeb Tang Unavailable Unavailable Encounters Encounter Location Date Provider Diagnosis [facility] [address] [place] [address] 03/01/2024 Cortes Castillo Jr PLAN OF TREATMENT Next Appt Details Provider Name:Cortes wilburn Jr, 11/24/2024 09:20:00 AM, [address], [address], [place], [address],
--- OUTSIDE RECORDS SUMMARY | 2024-06-04 11:49 | XMS_ITS | Encounter Summary ---
Author Organization [employer] Address [address] 7t [place] [address] Care Team Providers Care Breed To Wean Production Technician Name Role Phone Pascual Daly MD Primary Care Provide r Fani Heck PharmD Unavailable [phone] Reason for Visit * Reason Comments Med Refill Encounter Details Date Type Department Care Team (Late st Contact Info) Description 10/21/2023 Refill [facility] MEDICINE [address] [place] [address] Titi Gray FNP Major depressive disorder with [...] Upcoming Encounters Date Type Department Care Team ([facility] st Contact Info) Description 07/22/2024 10:30 AM EDT Clinical Support [facility] MED [facility] PEDS [address] [place] [address] Amanda Fernández RN [address] [place] [address] 08/03/2024 10:00 AM EDT Office Visit [facility] MEDICINE [address] [place] [address] Pascual Daly MD [address] [place] [address] documented as of this encounter Goals Goal [...] documented as of this encounter Care Teams Breed To Wean Production Technician Relationship Specialty Start Date End Date Pascual Daly MD [address] [place] [address] PCP - General Internal Medicine 02/22/14 Fani Heck, PharmD [address] [place] [address] Pharmacist Internal Medicine 12/16/22 documented as of this encounter
--- OUTSIDE RECORDS SUMMARY | 2024-06-04 11:49 | XMS_ITS | Encounter Summary ---
Author Organization [employer] Address [address] [facility] 7t [place] [address] Care Team Providers Care Rn Nicu Name Role Phone Pascual Daly MD Primary Care Provide r Fani Heck PharmD Unavailable [phone] Reason for Visit * Reason Comments Med Refill Encounter Details Date Type Department Care Team ([facility] st Contact Info) Description 07/16/2022 Refill [facility] MEDICINE [address] [place] [address] Pascual Daly MD [address] [place], [place] [phone] Social History Tobacco Use Types Packs/Day Years [...] Description 07/22/2024 10:30 AM EDT Clinical Support [facility] MED & PEDS [address] [place] [address] Amanda Fernández, RN [address] [place], [place] 08/03/2024 10:00 AM EDT Office Visit [facility] MEDICINE [address] [place] [address] Pascual Daly MD [address] [place] [address] documented as of this encounter Goals Goal [...] documented as of this encounter Care Teams Rn Nicu Relationship Specialty Start Date End Date Pascual Daly MD [address] [place] [address] PCP - General Internal Medicine 02/22/14 Fani Heck, PharmD [address] [place] [address] Pharmacist Internal Medicine 12/16/22 documented as of this encounter
--- OUTSIDE RECORDS SUMMARY | 2024-06-04 11:49 | XMS_ITS | Encounter Summary ---
Author Organization [employer] Address [address] [facility] 7t [place] [address] Care Team Providers Care Sterile Tech Name Role Phone Pascual Daly MD Primary Care Provide r Fani Heck PharmD Unavailable [phone] Encounter Details Date Type Department Care Team (Late Contact Info) Description 08/29/2022 Abstract [facility] MEDICINE [address] [place] [address] Pascual Daly MD [address] [place] [address] Social History Tobacco Use Types Packs/Day Years [...] Description 07/22/2024 10:30 AM EDT Clinical Support [facility] MED & PEDS [address] [place] [address] Amanda Fernández, AALIYAH [address] [place], [place] 08/03/2024 10:00 AM EDT Office Visit [facility] MEDICINE [address] [place] [address] Pascual Daly MD [address] [place] [address] documented as of this encounter Goals Goal [...] documented as of this encounter Care Teams Sterile Tech Relationship Specialty Start Date End Date Pascual Daly MD [address] [place], [place] [phone] PCP - General Internal Medicine 02/22/14 Fani Heck PharmD [address] [place], [place] [phone] Pharmacist Internal Medicine 12/16/22 documented as of this encounter
--- OUTSIDE RECORDS SUMMARY | 2024-06-04 11:49 | XMS_ITS | Encounter Summary ---
Author Organization [employer] Address [address] [facility] 7t [place] [address] Care Team Providers Care School Commissioner Name Role Phone Pascual Daly MD Primary Care Provide r Fani Heck PharmD Unavailable [phone] Reason for Visit * Reason Comments Med Refill Encounter Details Date Type Department Care Team (Late st Contact Info) Description 09/26/2023 Refill [facility] MEDICINE [address] [place] [address] Pascual Daly MD [address] [place], [place] [phone] Social History Tobacco Use Types Packs/Day Years [...] Description 07/22/2024 10:30 AM EDT Clinical Support [facility] MED & PEDS 505 [place] [address] Amanda Fernández, AALIYAH 505 [place] [address] 08/03/2024 10:00 AM EDT Office Visit [facility] MEDICINE [address] [place] [address] Pascual Daly MD [address] [place] [address] documented as of this encounter Goals Goal [...] documented as of this encounter Care Teams School Commissioner Relationship Specialty Start Date End Date Pascual Daly MD [address] [place] [address] PCP - General Internal Medicine 02/22/14 Fani Heck, Woody [address] [place] [address] Pharmacist Internal Medicine 12/16/22 documented as of this encounter
--- OUTSIDE RECORDS SUMMARY | 2024-06-04 11:49 | XMS_ITS | Patient Health Record ---
Author Organization [facility] Address [address] [place] [address] Care Team Providers Care Residential Real Estate Appraiser Name Role Phone Adolph Terry MD, Pascual [...] Problem Colon cancer screening (Z12.11) Active confirmed 293347054 Problem Epigastric pain (R10.13) Active confirmed 33644003 Problem Iron deficiency anemia (D50.9) Active confirmed Iron deficiency anemia (73406719) Problem Gastroesophageal reflux disease without esophagitis (K21.9) Active confirmed [id number] Problem Nausea and vomiting, intractability of vomiting not specified, unspecified vomiting type (R11.2) Active confirmed 06227555 VITAL SIGNS Temperature 97.9 degrees Fahrenheit 11/24/2023 Blood pressure diastolic 00 mm Hg 11/24/2023 Height 59 in 11/24/2023 Blood pressure systolic 000 mm Hg 11/24/2023 Weight 155 lb 4 oz lbs 11/24/2023 BMI 31.35 kg/m2 11/24/2023 Encounters Encounter Location Date Provider Diagnosis [facility] [address] [place] [phone] 09/03/2023 Cortes Castillo Jr [facility] [address] [place] [phone] 11/24/2023 Cortes Castillo Jr Gastroesophageal reflux disease without esophagitis K21.9 ; Iron deficiency anemia D50.9 and Colon cancer screening Z12.11 [facility] [address] [place] [phone] 08/19/2023 Cortes Castillo Jr [facility] [address] [place] [phone] 03/01/2024 Cortes Castillo Jr [facility] [address] [place] [phone] 11/24/2023 Cortes Castillo Jr ASSESSMENTS Encounter Date [...] Name:Cortes Guido wilburn Jr, 11/24/2024 09:20:00 AM, [address] [place] [address], [address], [place], [address], Insurance Providers Payer Name Payer Address Payer Phone Subscriber Number Group Number Insured Name Patient Relationship to Insured Coverage Start Date Coverage End Date [facility] [address] Attn Claims MARK Littlejohn [id number] ROASNNE WILLIS Self - patient is the insured [...]
--- OUTSIDE RECORDS SUMMARY | 2024-06-04 11:49 | XMS_ITS | Encounter Summary ---
Author Organization [employer] Address [address] [facility] 7t [place] [address] Care Team Providers Care Welder Fitter Name Role Phone Pascual Daly MD Primary Care Provide r Fani Heck PharmD Unavailable [phone] Reason for Visit * Reason Onset Date Comments Appointment Request 09/03/2022 Encounter Details Date Type Department Care Team ([facility] st Contact Info) Description 09/03/2022 Telephone [facility] MEDICINE [address] [place] [address] Pascual Daly MD [address] [place] [address] Appointment Request Social History Tobacco Use Types [...] Description 07/22/2024 10:30 AM EDT Clinical Support [facility] CH[facility] MED & PEDS [address] [place] [address] Amanda Fernández, RN [address] [place] [address] 08/03/2024 10:00 AM EDT Office Visit [facility] MEDICINE [address] [place] [address] Pascual Daly MD [address] [place] [address] documented as of this encounter Goals Goal [...] documented as of this encounter Care Teams Welder Fitter Relationship Specialty Start Date End Date Pascual Daly MD [address] [place] [id number] PCP - General Internal Medicine 02/22/14 Fani Heck PharmD [address] [place] [address] Pharmacist Internal Medicine 12/16/22 documented as of this encounter
--- OUTSIDE RECORDS SUMMARY | 2024-06-04 11:49 | XMS_ITS | Encounter Summary ---
Author Organization [employer] Address [address] [facility] 7t [place] [address] Care Team Providers Care Tyre Builder Name Role Phone Pascual Daly MD Primary Care Provide r Fani Heck PharmD Unavailable [phone] Encounter Details Date Type Department Care Team (Late Contact Info) Description 07/01/2022 Abstract [facility] [address] [place] [address] Pascual Daly MD [address] [place] [address] Social History Tobacco Use Types Packs/Day Years [...] Description 07/22/2024 10:30 AM EDT Clinical Support [facility] MED & PEDS [address] [place] [address] Amanda Fernández, AALIYAH [address] [place] [address] 08/03/2024 10:00 AM EDT Office Visit [facility] [address] [place] [address] Pascual Daly MD [address] [place] [address] documented as of this encounter Goals Goal [...] documented as of this encounter Care Teams Tyre Builder Relationship Specialty Start Date End Date Pascual Daly MD [address] [place] [address] PCP - General Internal Medicine 02/22/14 Fani Heck, PharmD [address] [place] [address] Pharmacist Internal Medicine 12/16/22 documented as of this encounter
--- OUTSIDE RECORDS SUMMARY | 2024-06-04 11:49 | XMS_ITS | Data Portability ---
Author Organization [employer] Address [address] [place] [phone] Care Team Providers Care Criminal Justice Teacher Name Role Phone [facility] Referring Provider [phone] Assessment Encounter Date Assessment Date Assessment LastModified by Organization Details LastModified Time 04/11/2023 04/11/2023 I provided real -time medical direction via phone for this encounter, and was available for additional phone based assistance as needed. I have reviewed and agree with the Assessment and Plan as documented by the Health Information Internship. Patient given the opportunity to ask questions. Advised to call for another visit over the weekend if not improving in 2 to 3 days however if develops CP/severe SOB/turning blue/uncontrolle d n/v/d or black/bloody emesis or stool/ AMS/ syncope/ hi fever unresponsive to APAP to call 911- verbalized understanding of instructions [email or web address] Not available 04/12/2023 10:53:05 Plan of Treatment [...] Not available Not available Not available 04/11/2023 [id number] 5 RxNorm Anitha Camacho MD [address] [facility], [place], [address] [facility] [employer] 3 14:49:47 4127 Celebrex medicatio n Not available Not available Not available 04/11/2023 01973 7 RxNoalex Camacho MD [address] [facility],[address], [place], [phone], [employer] 14:49:57 4128 tramadol medicatio n Not available Not available Not available 04/11/2023 [id number] RxGeovanny Camacho MD [address] [facility],[address], [place], [address], [employer] 14:50:04 Medications Name Sig Start Date Stop [...] Available Not Available No t Available [facility] [facility] kit USE DIRECTED active Not Available [...] Updated DateTime 3 97 % 97 % 93190.5 36 g 18 /min 97.8 [degF] 88 /min 167 mm[Hg] 84 mm[Hg] Not Available [facility] - production 3 14:49:26 Social History None recorded. Functional Status None recorded. Mental Status None recorded. Family History Nothing Reported. Medical History No medical history recorded. Gynecological HistoryNo gynecological history recorded. Obstetrics History GPAL:G 0 P 0 0 0 0 Past Encounters Encounter ID Performer Location Encounter Start Date Encounter Closed Date Diagnosis/Indication Diagnosis SNOMED-CT Code Diagnosis ICD10 Code Diagnosis Note [id number] Anitha Camacho MD Main - [facility] [address] [place] [address] 04/11/2023 14:49:23 04/12/2023 10:53:58 Respiratory syncytial virus infection [id number] B97.4 Continue medication s as prescribed ., [...] Patten Member ID Guarantor Name 04/11/2023 1 [facility] - DOS ON OR AFTER 2022 - DUAL ELIGIBLE - SNF OPTIONS AND ONE CARE (MEDICARE REPLACEMENT/ADV ANTAGE - HMO) Brandie Santana [id number] Brandie Ryanyes Notes Date Note Type Note Provider Name and Address Organization Details Recorded Time 04/11/2023 text/html HPI: 73 year old, Ghanaian speaking member, F, with hx of DM, HTN, Asthma, Depression, hx of falls and chronic pain, reporting worsesing Productive cough, shortness of breath with activities and fatigue, worsening head aches, [place] [facility] [place]23 and dx with RSV. Reported has fever and chills, believes her BP is high. Her ESCROW ASSISTANT worker is with her and member asked [...] .................. .................. .................. .................. .................. .................. ............... Health Information Internship Note From Teddy Miranda: Pt sts dis not call for [employer]. [facility] set up appt. Pt was in ER yesterday diagnosed with RSV treated RX for ventalin and prednisone. Pt denies cp sob fever nausea diarrhea. Baseline vitals assessed. Lungs clear. No edema. [facility] contacted ..pt declined benzonatate. Pt advised self care and continue with RX meds. Pt education on signs indicating the ER. Health Information Internship Allergies: Lorazepam .................. .................. .................. .................. .................. .................. .................. ............... Disposition: Fulfilled Comments: Reviewed - Johana RNSEGMD: Patient seen yesterday evening [facility]. COvid negative per patient/ RSV +/She is using her albuterol every 4 hours. She is on prednisone. No nausea vomiting.Pat has hx that includes but not limited to: DM2/COPD/HTN/Fe deficiency anemia/hypothyroid ism/MDD with psychotic features/obesity status post laparoscopic gastrectomy/positi ve SUSAN/fibromyalgia. Anitha Camacho MD [address] [facility], [place], [address], [place] [facility] [employer] 04/12/2023 10:53:56 OBGyn Episode No OBEpisode recorded.
--- OUTSIDE RECORDS SUMMARY | 2024-06-04 11:49 | XMS_ITS | Encounter Summary ---
Author Organization [employer] Address [address] [facility] 7[address] [place] [address] Care Team Providers Care Business And Financial Counsel Name Role Phone Pascual Daly MD Primary Care Provide r Fani Heck PharmD Unavailable [phone] Reason for Visit * Reason Comments Med Refill Encounter Details Date Type Department Care Team (Late Contact Info) Description 12/28/2022 Refill [facility] MEDICINE [address] [place] [address] Titi Gray FNP Major depressive disorder with [...] Description 07/22/2024 10:30 AM EDT Clinical Support [facility] CH[facility] MED & PEDS [address] [place], [place] [phone] Amanda Fernández, AALIYAH [address] [place] [address] 08/03/2024 10:00 AM EDT Office Visit [facility] MEDICINE [address] [place] [address] Pascual Daly MD [address] [place] [address] documented as of this encounter Goals Goal [...] as of this encounter Care Teams Business And Financial Counsel Relationship Specialty Start Date End Date Pascual Daly MD [address] [place] [address] PCP - General Internal Medicine 02/22/14 Fani Heck, PharmD [address] [place] [address] Pharmacist Internal Medicine 12/16/22 documented as of this encounter
--- OUTSIDE RECORDS SUMMARY | 2024-06-04 11:49 | XMS_ITS | Encounter Summary ---
Author Organization [employer] Address [address] [facility] [address] 7[address] [place] [address] Care Team Providers Care Supervisor Gelatin Plant Name Role Phone Pascual Daly MD Primary Care Provide r Fani Heck PharmD Unavailable [phone] Encounter Details Date Type Department Care Team ([facility] st Contact Info) Description 09/25/2023 Telephone [facility] MEDICINE [address] [place] [address] Pascual Daly MD 230 [place] [address] Social History Tobacco Use Types Packs/Day Years [...] Description 07/22/2024 10:30 AM EDT Clinical Support [facility] MED & PEDS [address] [place] [address] Amanda Fernández, RN [address] [place] [address] 08/03/2024 10:00 AM EDT Office Visit [facility] MEDIC[facility] [address] [place] [address] Pascual Daly MD [address] [place] [address] documented as of this encounter Goals Goal Patient Goal Type Associated Problems Recent Progress Patient-Stated? Author Blood Pressure < 140/90 Blood Pressure 133/70( 025 11:28 AM EST) No Fani Heck, PharmD documented as of this encounter Visit Diagnoses Diagnosis Type 2 diabetes mellitus without complication, with long-term current use of insulin ([facility]) documented in this encounter Additional Health Concerns Assessment Noted Time PHQ-9 Depression Total Score: 11 024 10:24 AM EST documented as of this encounter Care Teams Supervisor Gelatin Plant Relationship Specialty Start Date End Date Pascual Daly MD [address] [place] [address] PCP - General Internal Medicine 02/22/14 Fani Heck, KristiD [address] [place] [address] Pharmacist Internal Medicine 12/16/22 documented as of this encounter
--- OUTSIDE RECORDS SUMMARY | 2024-06-04 11:49 | XMS_ITS | Encounter Summary ---
Author Organization [employer] Address [address] [facility] 7t [place] [address] Care Team Providers Care Art Objects Repairer Name Role Phone Pasucal Daly MD Primary Care Provide r Fani Heck PharmD Unavailable [phone] Reason for Visit * Reason Onset Date Comments FYI 12/31/2023 Encounter Details Date Type Department Care Team ([facility] st Contact Info) Description 12/31/2023 Telephone [facility] MEDICINE [address] [place] [address] Pascual Daly MD [address] [place] [address] FYI Social History Tobacco Use Types Packs/Day [...] any questions you can contact Franky at [phone]. documented in this encounter Plan of Treatment Upcoming Encounters Date Type Department Care Team ([facility] st Contact Info) Description 07/22/2024 10:30 AM EDT Clinical Support [facility] CH[facility] MED & PEDS [address] [place] [address] Amanda Fernández, AALIYAH [address] [place] [address] 08/03/2024 10:00 AM EDT Office Visit [facility] MEDICINE [address] [place] [address] Pascual Daly MD [address] [place] [address] documented as of this encounter Goals Goal Patient Goal Type Associated Problems Recent Progress Patient-Stated? Author Blood Pressure < 140/90 Blood Pressure 133/70( 025 11:28 AM EST) No Fani Heck, oWody documented as of this encounter Visit Diagnoses Not on filedocumented in this encounter Additional Health Concerns Assessment Noted Time PHQ-9 Depression Total Score: 11 024 10:24 AM EST documented as of this encounter Care Teams Art Objects Repairer Relationship Specialty Start Date End Date Pascual Daly MD [address] [place] [address] PCP - General Internal Medicine 02/22/14 Fani Heck, PharmD [address] [place] [address] Pharmacist Internal Medicine 12/16/22 documented as of this encounter
--- OUTSIDE RECORDS SUMMARY | 2024-06-04 11:49 | XMS_ITS | Encounter Summary ---
Author Organization [employer] Address [address] [facility] [address] [place] [address] Care Team Providers Care Computer System Validation Specialist Name Role Phone Pascual Daly MD Primary Care Provide r Fani Heck PharmD Unavailable [phone] Reason for Visit * Reason Comments Med Refill Encounter Details Date Type Department Care Team (Late st Contact Info) Description 03/04/2023 Refill [facility] MEDICINE [address] [place] [address] Pascual Daly MD [address] [place], [place] [phone] Type 2 diabetes mellitus without complication, with long-term current use of insulin ([facility] Social History Tobacco Use Types Packs/Day Years [...] 07/22/2024 10:30 AM EDT Clinical Support [facility] MED & PEDS [address] [place] [address] Amanda Fernández, AALIYAH [address] [place] [address] 08/03/2024 10:00 AM EDT Office Visit [facility] MEDICINE [address] [place] [address] Pascual Daly MD [address] [place] [address] documented as of this encounter Goals Goal Patient Goal Type Associated Problems Recent Progress Patient-Stated? Author Blood Pressure < 140/90 Blood Pressure 133/70( 025 11:28 AM EST) No Fani Heck, KristiD documented as of this encounter Visit Diagnoses Diagnosis Type 2 diabetes mellitus without complication, with long-term current use of insulin ([facility]) documented in this encounter Additional Health Concerns Assessment Noted Time PHQ-9 Depression Total Score: 9 02/25/20 23 11:02 AM EST documented as of this encounter Care Teams Computer System Validation Specialist Relationship Specialty Start Date End Date Pascual Daly MD [address] [place] [address] PCP - General Internal Medicine 02/22/14 Fani Heck, KristiD [address] [place] [address] Pharmacist Internal Medicine 12/16/22 documented as of this encounter
--- OUTSIDE RECORDS SUMMARY | 2024-06-04 11:49 | XMS_ITS | Clinical Summary ---
Author Organization [facility] Address [address] [facility] 7t [place] [address] Care Team Providers Care Design Engineering Manager Name Role Phone Pascual Daly MD Primary Care Provide r Fani Heck PharmD Unavailable [phone] Allergies Active Allergy Reactions Criticality Noted Date [...] crush or chew. 90 capsule 1 Active gabapentin (Neurontin) 100 MG capsuleIndicati ons:Pain TAKE 1 CAPSULE TWICE DAILY IN THE MORNING AND AT BEDTIME 180 capsule 1 Active Continuous Glucose Sensor (Dexcom G7 Sensor) misc DIRECTED Active Actemra ACTPen 162 MG/0.9ML solution auto-injector Inject as directed (likely every other week; verify dose with patient or pharmacy) Active albuterol (Ventolin HFA) 108 (90 Base) MCG/ACT inhalerIndicati ons:Mild intermittent asthma without complication INHALE 2 PUFFS BY MOUTH EVERY 4 TO 6 HOURS NEEDED 18 g 1 025 Active oxyCODONE (Roxicodone) 5 MG immediate release tabletIndicatio ns:Fibromyalgia TAKE 1 TABLET BY MOUTH EVERY TWELVE HOURS NEEDED FOR SEVERE PAIN 56 tablet 025 Active losartan (Cozaar) 100 MG tabletIndicatio ns:Benign hypertension TAKE 1 TABLET BY MOUTH EVERY MORNING 90 tablet 1 025 Active atorvastatin (Lipitor) 20 MG tabletIndicatio ns:Type 2 diabetes mellitus without complication, with long-term current use of insulin (CMS/HCC) TAKE 1 TABLET BY MOUTH EVERY MORNING 90 tablet 025 Active amLODIPine (Norvasc) 10 MG tabletIndicatio ns:Benign hypertension TAKE 1 TABLET BY MOUTH EVERY EVENING 90 tablet 025 Active losartan (Cozaar) 100 MG tabletIndicatio ns:Benign hypertension TAKE 1 TABLET BY MOUTH EVERY MORNING 90 tablet 1 024 2024 Discontinued atorvastatin (Lipitor) 20 MG tabletIndicatio ns:Type 2 diabetes mellitus without complication, with long-term current use of insulin (CMS/HCC) TAKE 1 TABLET BY MOUTH EVERY MORNING 90 tablet 024 2024 Discontinued amLODIPine (Norvasc) 10 MG tabletIndicatio ns:Benign hypertension TAKE 1 TABLET BY MOUTH EVERY EVENING 90 tablet 024 2024 Discontinued oxyCODONE (Roxicodone) 5 MG immediate release tabletIndicatio ns:Fibromyalgia Take 1 tablet (5 mg) by mouth every 12 (twelve) hours if needed for severe pain. Do not start before April 13, 2024. 56 tablet 024 2024 Discontinued chlorhexidine (Peridex) 0.12 % solution Use 15 mL in the mouth or throat if needed (for mouthwash 15 ml for 30 seconds, swish and spit) for up to 14 days. 120 mL 025 2024 Active Problems Problem Noted Date Diagnosed Date Hospital discharge follow-up 10/21/2023 Assessment & Plan (10/21/2023 10:15 AM EDT): Patient admitted to [facility] 09/[facility]/23 after she presented to [place] emergency room due to left-sided chest discomfort as per patient she was visiting family in [place], on August 26 she turned in high [...] Ambulate as Tolerated. FU with PCP in 1m, will defer covid booster by then so [...] (08/27/2022 10:19 AM EDT): followed by a printing bindery assistant. 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 - Follow-up in [facility] in November. Repeat BMP and A1c prior [...] the care of Endocrinology office Vashti Glass NP, last seen 03/17/2024 and follows with RN [...] f/u She is under the care of Television Audio Engineer Dr Sprague, last seen 12/31/2023 On a [...] f/u She is under the care of Television Audio Engineer Dr Sprague, last seen 10/16/2023 On a [...] f/u She is under the care of Television Audio Engineer Dr Sprague, has a follow up with [...] f/u She is under the care of Television Audio Engineer Dr Sprague, has a follow up at [...] was referred to Dr. Manjinder Gonsales at [facility] as her medical insurance recommended this referral. [...] factors. LDL-C is now calculated using the Melquiades-Correia calculation, which is a validated novel method providing better accuracy than the Friedewald equation in the estimation of LDL-C. Melquiades WALLACE et al. TEN. 2013;310(19): 5931-0435 (http://education.[employer]Full Throttle Indoor Kart Racing/faq/JNZ651) Chol/HDLC Ratio <5.0 (calc) 4.2 3.7 2.5 [...] state 09/24/2011 04/25/2022 Depressive disorder 04/21/1959 04/25/19 23 Encounters Date Type Department Care Team Description 06/04/2024 Orders Only GENERIC EXTERNAL DATA DEPARTMENT Provider, Generic External Data 05/31/2024 Refill [facility] [address] [place] [address] Nikia Jeter MD Type 2 diabetes mellitus without complication, with long-term current use of insulin (CMS/[facility]); Benign hypertension 05/24/2024 Refill [facility] [address] [place] [address] Pascual Daly MD Benign hypertension 05/18/2024 Orders Only GENERIC EXTERNAL DATA DEPARTMENT Provider, Generic External Data 05/13/2024 Telephone [facility] [address] [place] [address] Pascual Daly MD Med Refill 05/13/2024 Refill [facility] [address] [place] [address] Pascual Daly MD Fibromyalgia 05/05/2024 11:30 AM EST Office Visit [facility] [address] [place] [address] Santizo-Mckeon, Ammy, DDS Aphthous ulcer (Primary Dx) 05/04/2024 10:15 AM EST Office Visit [facility] [address] [place] [address] Pascual Daly MD Type 2 diabetes mellitus without complication, with long-term current use of insulin (CMS/HCC) (Primary Dx); Primary hypertension; Mixed hyperlipidemia; Recurrent falls 05/04/2024 Travel 04/27/2024 9:30 AM EST Clinical Support [facility] [address] [place] [address] Amanda Fernández, AALIYAH Closed fracture of multiple ribs of left side with routine healing 04/27/2024 Travel 04/22/2024 Refill [facility] [address] [place] [address] Pascual Daly MD Mild intermittent asthma without complication 04/19/2024 Telephone [facility] [address] [place] [address] Pascual Daly MD Chart Prep 04/08/2024 Refill [facility] [address] [place] [address] Pascual Daly MD Fibromyalgia 03/17/2024 Orders Only GENERIC EXTERNAL DATA DEPARTMENT Provider, Generic External Data 03/16/2024 Refill [facility] [address] [place] [address] Amanda Fernández RN Fibromyalgia 03/15/2024 Refill [facility] [address] [place] [address] Amanda Fernández RN Fibromyalgia 03/11/2024 Telephone [facility] [address] [place] [address] Pascual Daly MD Med Refill 03/05/2024 Refill [facility] [address] [place] [address] Jefry Chun Benign hypertension; Type 2 diabetes mellitus without complication, with long-term current use of insulin ([facility]) 03/05/2024 Refill [facility] [address] [place] [address] Pascual Daly MD Type 2 diabetes mellitus without complication, with long-term current use of insulin ([facility]); Benign hypertension from Last 3 Months Immunizations Name Administration [...] Description 07/22/2024 10:30 AM EDT Clinical Support [facility] [address] [place] [address] Amanda Fernández, AALIYAH [address] [place] [address] 08/03/2024 10:00 AM EDT Office Visit [facility] [address] [place] [address] Pascual Daly MD [address] [place] [address] Health Maintenance Due Date Last Done Comments [...] (PHQ-9) 07/29/2024 01/29/2024, 01/29/2024 Diabetes: Hemoglobin A1C 08/02/202405/04/ 025, 02/17/2024, 01/29/2024, Additional history exists Lipid Panel 10/30/2024 10/31/2023, 0306/2023, 09/17/2022, Additional history exists Depression Screening 01/28/2025 01/29/2024, 01/29/20 24 Alcohol/Substance Use Screening 05/04/2025 05/04/2024 Tobacco Screening 05/04/2025 05/04/2024 Colonoscopy 03/20/2028 03/20/2018 Colorectal Cancer Screening 03/20/2028 Zoster Vaccines Completed 03/17/2019, 12/21, 09/08/2014 Hepatitis C Screening Completed 01/15/2023 , 01/14/2023, 01/14/2023, Additional history exists Pneumococcal Vaccine: 50+ Years Completed 06/12/2023, 04/25/2015, 04/25/2015, Additional history [...] 11:28 AM EST) No Fani Heck PharmD Procedures Procedure Name Priority Date/Time Associated Diagnosis Comments GLUCOSE, WHOLE BLOOD Routine 06/04/2024 11:14 AM EST GLUCOSE, WHOLE BLOOD Routine 05/18/2024 10:17 AM EST CASE PRESENTATION, DETAILED AND EXTENSIVE TREATMENT PLANNING Routine 05/05/2024 11:30 AM EST Aphthous ulcer PALLIATIVE (EMERGENCY) TREATMENT OF DENTAL PAIN - MINOR PROCEDURE Routine 05/05/2024 11:30 AM EST Aphthous ulcer POCT GLUCOSE Routine 05/04/2024 10:16 AM EST Type 2 diabetes mellitus without complication, with long-term current use of insulin ([facility]) POCT GLYCATED HEMOGLOBIN, TOTAL Routine 05/04/2024 10:16 AM EST Type 2 diabetes mellitus without complication, with long-term current use of insulin ([facility]) POCT HEATHER-14 URINE DRUG SCREEN Routine 04/27/2024 9:44 AM EST Closed fracture of multiple ribs of left side with routine healing GLUCOSE, WHOLE BLOOD Routine 03/17/2024 9:50 AM EST LIPID PANEL, STANDARD Routine 10/31/2023 10:42 AM EDT ALBUMIN, RANDOM URINE W/CREATININE Routine 07/02/2023 10:06 AM EDT BI MAMMOGRAM SCREENING TOMOSYNTHESIS BILATERAL Routine 06/05/2023 11:00 AM EST HEPATITIS C VIRAL RNA GENOTYPE, LIPA Routine 01/15/2023 11:08 AM EDT HM COLONOSCOPY Routine 03/20/2018 from Last 3 Months or Most Recently Relevant to Health Maintenance Results * (ABNORMAL) Glucose, Whole Blood (06/04/2024 11:14 AM EST) Only the most recent of3 resultswithin the time period is included. Glucose, Whole Blood 121(H) 60 - 115 mg/dL [facility] Comment:METER #: [id number] 5Testing performed in the Endocrinology Department [address] , [address], [facility]. 06/04/2024 11:1 4 AM EST 06/04/2024 11:19 AM EST us Generic External Data Provider LAB BLOOD ORDERAB LES Final Result [facility] [address] [place] [address] [phone] * (ABNORMAL) POCT HGB A1C (05/04/2024 10:16 AM EST) Hemoglobin A1C 8.9(A) 4.0 - 6.0 % QC Media Lot # [id number] Lot# Expiration Date ,486 Blood 05/04/2024 10:1 6 AM EST Pascual Terry MD POINT OF CARE TEST ENTER/EDIT ORDERABLES Edited Result - Final * (ABNORMAL) POCT Glucose (05/04/2024 10:16 AM EST) Pathologist [facility] Glucose Blood, POC 270(A) 60 - 200 mg/dL QC Media Lot # [id number] Lot# Expiration Date Blood Capillary blood specimen / Unknown 05/04/2024 10:16 AM EST Pascual Terry MD POINT OF CARE TEST EN TER/EDIT ORDERABLES Final Result * POCT HEATHER-14 Urine Drug Screen (04/27/2024 9:44 AM EST) Pathologist [facility] Oxycodone Screen, Urine Positive Urine Urine specimen obtained by clean catch procedure / Unknown 04/27/2024 9:44 AM EST Narrative Amanda Fernández RN - 04/27/2024 9:44 AM EST Lot# [id number] Exp: 03-27-25 Pascual Terry MD POINT OF CARE TEST EN TER/EDIT ORDERABLES Final Result * (ABNORMAL) Lipid Panel, Standard (10/31/2023 10:42 AM EDT) Pathologist [facility] Triglycerides 74 <150 mg/dL [facility] Comment:Desirable Triglyceri de: less than 150 mg/dLBorderline High Triglyceride 150-199 mg/dLHigh Triglyceride: 200-499 mg/dLVery High Triglyceride: greater than or equal to 5OO mg/dL Cholesterol 95 <200 mg/dL [facility] Comment:Desirable Cholestero l: less than 200 mg/dLBorderline High Cholesterol: 200-239 mg/dLHigh Cholesterol: greater than 239 mg/dL LDL Cholesterol Calculated 43 <100 mg/dL [facility] Comment:Desirable LDL: less than 100 mg/dLNear Optimal/Above Optimal LDL: 110- 129 mg/dLBorderline High LDL: 130-159 mg/dLHigh LDL: 160-189 mg/dLVery High LDL: greater than or equal to 190 mg/dL HDL Cholesterol 38(L) >40 mg/dL [facility] Comment:Desirable HDL: great er than 40 mg/dL Note: This HDL assay may give artificially low results in patients with liver disease. 10/31/2023 10:4 2 AM EDT 10/31/2023 10:42 AM EDT Generic External Data Provider LAB BLOOD ORDERAB LES Final Result Performing Organization Address [facility] de Phone Number [facility] [address] [place] [phone] * (ABNORMAL) Albumin, Random Urine W/Creatinine (07/02/2023 10:06 AM EDT) Creatinine, Urine 163.81 mg/dL [facility] Microalbumin Urine 59.0 mg/L [facility] Microalbum Creatinine Ratio Ur 36.0(H) <30 ug/mg cr [facility] Comment:Albumin/Creatinine R atio Reference Ranges: Normal: < 30 ug/mg creatinine Microalbuminuria: 30 - 300 ug/mg creatinineClinical Albuminuria: > 300 ug/mg creatinine 07/02/2023 10:0 6 AM EDT 07/02/2023 11:41 AM EDT Generic External Data Provider LAB URINE ORDERAB LES Final Result Performing Organization Address [facility] Co de Phone Number [facility] [address] [place] [phone] * BI Mammogram Screening Tomosynthesis Bilateral (06/05/2023 11:00 AM EST) Anatomical Region Laterality Modality Breast Bilateral Mammography 06/05/2023 11:0 0 AM EST Narrative 07/01/2023 11:45 AM EDT ? [facility] ? [address] ?[place] [address] ? Mammography Report ? Signed ? Patient: Max,Brandie ?MR#: [id number] ? : 1950 ?Acct:[id number] ? Age/Sex: 73 / F ?ADM Date: 06/05/23 ? Loc: HO.MAMMO ? Attending Dr: Briseida Rocha MD ? Ordering Physician: Briseida Rocha MD ?Results: 1Negat ?? juaquin ? Date of Service: 06/05/23 ?Follow Up: 1 Year From Orig ?? inal Mammogram ? Procedure(s): MM tomosynthesis screening BI ?? Accession Number(s): [id number] ? cc: Pascual Darnell MD; Briseida Rocha [...] 1141 ? DD/ 1100 ? TD/TT: ? Precision Grinder: ? Procedure Note Donmarialuisasilvajessicater, Image - 07/01/2023 [facility] [address] [place] [address] Mammography Report Signed Patient: Dino Santana#: [id number] : 1950Acct:[id number] Age/Sex: 73 / FADM Date: 06/05/23 Loc: HO.MAMMO Attending Dr: Briseida Rocha MD Ordering Physician: Briseida Rocha MDResults: 1Negat juaquin Date of Service: 06/05/23Follow Up: 1 Year From Orig inal Mammogram Procedure(s): MM tomosynthesis screening BI Accession Number(s): [id number] cc: Pascual Darnell MD; Briseida Rocha MD [...] in OV> 07/01/23 1141 DD/ 1100 TD/TT: Precision Grinder: [facility] External Provider IMG BI PROCEDURES Final Result * Hepatitis C Viral RNA, Genotype, LiPA (01/15/2023 11:08 AM EDT) Hepatitis C Genotype Not Detected [facility] Comment: Genotype not detected due [...] characteristics of thisassay have been [facility] [place], [place]. ??The modificationshave not been cleared or approved by the FDA. ??Thisassay has been validated pursuant to the CLIAregulations and is used for clinical purposes.For additional information, please refer tohttp://education.[employer]Full Throttle Ind[employer]art [employer]/faq/HCVGenotyping(This link is being provided for informational/educational purposes only.)THIS TEST WAS PERFORMED AT:[employer]/[id number] [place] [id number] CORDON MD,PHD 01/15/2023 11:0 8 AM EDT 01/15/2023 11:08 AM EDT [facility] External Provider LAB BLO OD ORDERABLES Final Result [facility] [address] [place] [address] [phone] * Hm Colonoscopy (03/20/2018) Colonoscopy Normal Normal 03/20/2018 Narrative Soledad, Sondra - 03/20/2018 9:09 AM EST Recommended 10 year follow up Historical Provider MD HEALTH MAINTENANCE Edited Result - Final from Last 3 Months or Most Recently Relevant to Health Maintenance Insurance [facility] Care Teams Design Engineering Manager Relationship Specialty Start Date End Date Pascual Daly MD [address] [place] [address] PCP - General Internal Medicine 02/22/14 Fani Heck PharmD [address] [place] [address] Pharmacist Internal Medicine 12/16/22
--- OUTSIDE RECORDS SUMMARY | 2024-06-04 11:49 | XMS_ITS | Encounter Summary ---
Author Organization [employer] Address [address] [facility] 7t [place] [address] Care Team Providers Care Lens Mold Setter Name Role Phone Pascual Daly MD Primary Care Provide r Fani Heck PharmD Unavailable [phone] Reason for Visit * Reason Onset Date Comments Med Refill 10/11/2022 Encounter Details Date Type Department Care Team ([facility] st Contact Info) Description 10/11/2022 Telephone [facility] [address] [place] [address] Pascual Daly MD [address] [place], [place] [phone] Med Refill Social History Tobacco Use Types [...] Description 07/22/2024 10:30 AM EDT Clinical Support [facility] [address] [place] [address] Amanda Fernández, RN [address] [place] [address] 08/03/2024 10:00 AM EDT Office Visit [facility] [address] [place] [address] Pascual Daly MD [address] [place] [address] documented as of this encounter Goals Goal [...] documented as of this encounter Care Teams Lens Mold Setter Relationship Specialty Start Date End Date Pascual Daly MD [address] [place] [address] PCP - General Internal Medicine 02/22/14 Fani Heck, PharmD [address] [place] [address] Pharmacist Internal Medicine 12/16/22 documented as of this encounter
--- OUTSIDE RECORDS SUMMARY | 2024-06-04 11:49 | XMS_ITS | Encounter Summary ---
Author Organization [facility] [facility] Address [address] [facility] [address] [place] [address] Care Team Providers Care Chair Car Attendant Name Role Phone Pascual Daly MD Primary Care Provide r Fani Heck PharmD Unavailable [phone] Encounter Details Date Type Department Care Team ([facility] st Contact Info) Description 09/25/2023 Telephone [facility] [address] [place] [address] Pascual Daly MD [address] [place] [address] Social History Tobacco Use Types Packs/Day Years [...] [facility] [address] [place] [address] Amanda Fernández, RN [address] [place] [address] 08/03/2024 10:00 AM EDT Office Visit [facility] [address] [place] [address] Pascual Daly MD [address] [place] [address] documented as of this encounter Goals Goal [...] documented as of this encounter Care Teams Chair Car Attendant Relationship Specialty Start Date End Date Pascual Daly MD [address] [place] [phone] PCP - General Internal Medicine 11/4/14 Fani Heck, KristiD [address] [place] [phone] Pharmacist Internal Medicine 12/16/22 documented as of this encounter
--- OUTSIDE RECORDS SUMMARY | 2024-06-04 11:49 | XMS_ITS | Encounter Summary ---
Author Organization [employer] Address [address] [facility] [address] [place] [address] Care Team Providers Care Sample Patternmaker Name Role Phone Pascual Daly MD Primary Care Provide r Fani Heck PharmD Unavailable [phone] Reason for Visit * Reason Comments Med Refill Encounter Details Date Type Department Care Team (Late st Contact Info) Description 01/01/2024 Refill [facility] [address] [place] [address] [phone] Momo Rizo MD [address] [place] [phone] Social History Tobacco Use Types Packs/Day Years [...] Description 07/22/2024 10:30 AM EDT Clinical Support [facility] [address] [place] [address] Amanda Fernández RN [address] [place] [address] 08/03/2024 10:00 AM EDT Office Visit [facility] [address] [place] [address] Pascual Dayl MD [address] [place] [address] documented as of this encounter Goals Goal [...] documented as of this encounter Care Teams Sample Patternmaker Relationship Specialty Start Date End Date Pascual Daly MD [address] [place] [address] PCP - General Internal Medicine 02/22/14 Fani Heck, Woody [address] [place] [phone] Pharmacist Internal Medicine 12/16/22 documented as of this encounter
--- OUTSIDE RECORDS SUMMARY | 2024-06-04 11:49 | XMS_ITS | Encounter Summary ---
Author Organization [employer] Address [address] [facility] 7t [place] [address] Care Team Providers Care Radiation Control Technician Name Role Phone Pascual Daly MD Primary Care Provide r Fani Heck PharmD Unavailable [phone] Reason for Visit * Reason Onset Date Comments Med Refill 01/13/2024 Encounter Details Date Type Department Care Team ([facility] st Contact Info) Description 01/13/2024 Telephone [facility] [address] [place] [address] Pascual Daly MD [address] [place] [address] Med Refill Social History Tobacco Use Types [...] immediate release tablet To be sent to: [facility] - [place], [place] - [address] [place] [address] documented in this encounter Plan of Treatment Upcoming Encounters Date Type Department Care Team ([facility] st Contact Info) Description 07/22/2024 10:30 AM EDT Clinical Support [facility] [address] [place] [address] Amanda Fernández RN [address] [place] [address] 08/03/2024 10:00 AM EDT Office Visit [facility] [address] [place] [address] Pascual Daly MD [address] [place] [address] documented as of this encounter Goals Goal [...] documented as of this encounter Care Teams Radiation Control Technician Relationship Specialty Start Date End Date Pascual Daly MD [address] [place] [address] PCP - General Internal Medicine 02/22/14 Fani Heck, PharmD [address] [place] [phone] Pharmacist Internal Medicine 12/16/22 documented as of this encounter
--- OUTSIDE RECORDS SUMMARY | 2024-06-04 11:49 | XMS_ITS | Encounter Summary ---
Author Organization [email or web address] Address [address] [facility] [address] [place] [address] Care Team Providers Care Pest Control Service Representative Name Role Phone Pascual Daly MD Primary Care Provide r Fani Heck PharmD Unavailable [phone] Reason for Visit * Reason Comments Med Refill Encounter Details Date Type Department Care Team (Late st Contact Info) Description 07/20/2023 Refill [facility] [address] [place] [address] Titi Gray FNP Major depressive disorder with [...] Upcoming Encounters Date Type Department Care Team ([facility] st Contact Info) Description 07/22/2024 10:30 AM EDT Clinical Support [facility] [address] [place] [address] Amanda Fernández RN [address] [place] [address] 08/03/2024 10:00 AM EDT Office Visit [facility] [address] [place] [address] Pascual Daly MD [address] [place] [address] documented as of this encounter Goals Goal [...] of this encounter Care Teams Pest Control Service Representative Relationship Specialty Start Date End Date Pascual Daly MD [address] [place] [phone] PCP - General Internal Medicine 02/22/14 Fani Heck, PharmD [address] [place] [phone] Pharmacist Internal Medicine 12/16/22 documented as of this encounter
--- OUTSIDE RECORDS SUMMARY | 2024-06-04 11:49 | XMS_ITS | Encounter Summary ---
Author Organization [employer] Address 75 [facility] 7t [place] [address] Care Team Providers Care Geophysical Prospector Name Role Phone Pascual Daly MD Primary Care Provide r Fani Heck PharmD Unavailable [phone] Reason for Visit * Reason Comments Med Refill Encounter Details Date Type Department Care Team (Late Contact Info) Description 10/02/[address] [facility] MEDICINE 230 [place] [address] Titi Gray FNP Major depressive disorder with [...] 10:30 AM EDT Clinical Support [facility] CHC MED & PEDS 505 [place] [address] Amanda Fernández, AALIYAH 505 [place] [address] 08/03/2024 10:00 AM EDT Office Visit [facility] MEDICINE [address] [facility] [place] [address] Pascual Daly MD 230 [place] [address] documented as of this encounter Goals Goal [...] documented as of this encounter Care Teams Geophysical Prospector Relationship Specialty Start Date End Date Pascual Daly MD 230 [place] [address] PCP - General Internal Medicine 02/22/14 Fani Heck, PharmD [address] [place] [address] Pharmacist Internal Medicine 12/16/22 documented as of this encounter
--- OUTSIDE RECORDS SUMMARY | 2024-06-04 11:50 | XMS_ITS | Encounter Summary ---
Author Organization [employer] Address 75 [facility] 7t [place] [address] Care Team Providers Care Supervisor Electric Motor Testing Name Role Phone Pascual Daly MD Primary Care Provide r Fani Heck PharmD Unavailable [phone] Reason for Visit * Reason Onset Date Comments FYI 12/11/2023 Durable Medical Equipment 12/11/2023 Encounter Details Date Type Department Care Team (Late st Contact Info) Description 12/11/2023 Telephone [facility] MEDICINE 230 [place], [place] [phone] Pascual Daly MD 230 [place], [place] [phone] FYI ; Durable Medical Equipment Social History [...] two DME scripts to be sent to [facility] which: [facility] bed Please fax over to [phone] documented in this encounter Plan of Treatment Upcoming Encounters Date Type Department Care Team (Late st Contact Info) Description 07/22/2024 10:30 AM EDT Clinical Support [facility] CHC MED & PEDS [address] [place] [address] Amanda Fernández RN 505 [place] [address] 08/03/2024 10:00 AM EDT Office Visit [facility] MEDICINE 230 [place] [address] Pascual Daly MD 230 [place] [address] documented as of this encounter Goals Goal [...] as of this encounter Care Teams Supervisor Electric Motor Testing Relationship Specialty Start Date End Date Pascual Daly MD 230 [place] [address] PCP - General Internal Medicine 02/22/14 Fani Heck, KristiD [address] [place] [address] Pharmacist Internal Medicine 12/16/22 documented as of this encounter
--- OUTSIDE RECORDS SUMMARY | 2024-06-04 11:50 | XMS_ITS | Encounter Summary ---
Author Organization [employer] Address 75 [facility] 7t [place] [address] Care Team Providers Care Traveling Storekeeper Name Role Phone Pascual Daly MD Primary Care Provide r Fani Heck PharmD Unavailable [phone] Encounter Details Date Type Department Care Team (Late st Contact Info) Description 03/13/2022 Abstract [facility] MEDICINE [address] [place] [address] ProviderBill MD Social History Tobacco Use Types [...] Description 07/22/2024 10:30 AM EDT Clinical Support [facility] CHC MED & PEDS 505 [place] [address] Amanda Fernández, AALIYAH 505 [place] [address] 08/03/2024 10:00 AM EDT Office Visit [facility] MEDICINE 230 [place] [address] Pascual Daly MD 230 [place], [place] [phone] documented as of this encounter Visit Diagnoses Not on filedocumented in this encounter Care Teams Traveling Storekeeper Relationship Specialty Start Date End Date Pascual Daly MD 230 [place] [address] PCP - General Internal Medicine 02/22/14 Fani Heck PharmD [address] [place] [address] Pharmacist Internal Medicine 12/16/22 documented as of this encounter
--- OUTSIDE RECORDS SUMMARY | 2024-06-04 11:50 | XMS_ITS | Encounter Summary ---
Author Organization [employer] Address 75 [facility] 7t [place] [address] Care Team Providers Care Meat Boner And Slicer Name Role Phone Pascual Daly MD Primary Care Provide r Fani Heck PharmD Unavailable [phone] Reason for Visit * Reason Comments Med Refill Encounter Details Date Type Department Care Team (Late st Contact Info) Description 05/31/2024 Refill [facility] MEDICINE 230 [place] [address] Nikia Jeter MD 230 [place] [address] Type 2 diabetes mellitus without complication, with long-term current use of insulin ([facility]); Benign hypertension Social History Tobacco Use Types [...] [facility] CH[facility] MED & PEDS 505 [place] [address] Amanda Fernández, AALIYAH 505 [place] [address] 08/03/2024 10:00 AM EDT Office Visit [facility] MEDICINE 230 [place] [address] Pascual Daly MD 230 [place] [address] documented as of this encounter Goals Goal Patient Goal Type Associated Problems Recent Progress Patient-Stated? Author Blood Pressure < 140/90 Blood Pressure 133/70( 025 11:28 AM EST) No Fani Heck, KristiD documented as of this encounter Visit Diagnoses Diagnosis Type 2 diabetes mellitus without complication, with long-term current use of insulin ([facility]) Benign hypertension Essential hypertension, benign documented in this encounter Additional Health Concerns Assessment Noted Time PHQ-9 Depression Total Score: 9 01/29/20 24 11:00 AM EDT documented as of this encounter Care Teams Meat Boner And Slicer Relationship Specialty Start Date End Date Farfan Harrison, Pascual, MD 230 [place] [address] PCP - General Internal Medicine 02/22/14 Fani Heck PharmD 230 [place] [address] Pharmacist Internal Medicine 12/16/22 documented as of this encounter
--- OUTSIDE RECORDS SUMMARY | 2024-06-04 11:50 | XMS_ITS | Encounter Summary ---
Author Organization [employer] Address 75 [facility] 7t [place] [address] Care Team Providers Care Manager Clinical Pharmacy Name Role Phone Pascual Daly MD Primary Care Provide r Fani Heck PharmD Unavailable [phone] Reason for Visit * Reason Comments Med Refill Encounter Details Date Type Department Care Team (Late st Contact Info) Description 05/13/2024 Refill [facility] MEDICINE 230 [place], [place] [phone] Pascual Daly MD 230 [place], [place] [phone] Fibromyalgia Social History Tobacco Use Types Packs/Day [...] Cali RN - 05/13/2024 9:52 AM EST SENIOR PRINCIPAL SOFTWARE ENGINEER checked. Pt last picked up 28 day supply of oxycodone 04/13/24. Soonest expected refill date is05/11/24. Saw CELL SUPPORT OPERATOR 04/27/24. Refill appropriate. Queued. documented in this encounter Plan of Treatment Upcoming Encounters Date Type Department Care Team ([facility] st Contact Info) Description 07/22/2024 10:30 AM EDT Clinical Support [facility] CHC MED & PEDS 505 [place] [address] Amanda Fernández, RN 505 [place] [address] 08/03/2024 10:00 AM EDT Office Visit [facility] MEDICINE 230 [place] [address] Pascual Daly MD 230 [place] [address] documented as of this encounter Goals Goal [...] documented as of this encounter Care Teams Manager Clinical Pharmacy Relationship Specialty Start Date End Date Pascual Daly MD 230 [place] [address] PCP - General Internal Medicine 02/22/14 Fani Heck, KristiD 230 [place] [address] Pharmacist Internal Medicine 12/16/22 documented as of this encounter
--- OUTSIDE RECORDS SUMMARY | 2024-06-04 11:50 | XMS_ITS | Encounter Summary ---
Author Organization [employer] Address 75 [facility] 7t [place] [address] Care Team Providers Care Glassware Verifier Name Role Phone Pascual Daly MD Primary Care Provide r Fani Heck PharmD Unavailable [phone] Reason for Visit * Reason Comments Med Refill Encounter Details Date Type Department Care Team (Late st Contact Info) Description 05/24/2024 Refill [facility] MEDICINE 230 [place] [address] Pascual Daly MD 230 [place], [place] [phone] Benign hypertension Social History Tobacco Use Types [...] Description 07/22/2024 10:30 AM EDT Clinical Support [facility] CHC MED & PEDS 505 [place] [address] Amanda Fernández, AALIYAH 505 [place] [address] 08/03/2024 10:00 AM EDT Office Visit [facility] MEDICINE 230 [place] [address] Pascual Daly MD [address] [place] [address] documented as of this encounter Goals Goal [...] documented as of this encounter Care Teams Glassware Verifier Relationship Specialty Start Date End Date Pascual Daly MD [address] [place] [address] PCP - General Internal Medicine 02/22/14 Fani Heck, KristiD [address] [place] [address] Pharmacist Internal Medicine 12/16/22 documented as of this encounter
--- OUTSIDE RECORDS SUMMARY | 2024-06-04 11:50 | XMS_ITS | Encounter Summary ---
Author Organization [employer] Address 75 [facility] 7t [place] [address] Care Team Providers Care Boiler Tube Reamer Name Role Phone Pascual Daly MD Primary Care Provide r Fani Heck PharmD Unavailable [phone] Encounter Details Date Type Department Care Team [...] 10:30 AM EDT Clinical Support [facility] CHC MED & PEDS 505 [place], [place] [phone] Amanda Fernández, AALIYAH 505 [place] [address] 08/03/2024 10:00 AM EDT Office Visit [facility] MEDICINE 230 [place] [address] Pascual Daly MD 230 [place] [address] documented as of this encounter Goals Goal [...] Whole Blood 260(H) 60 - 115 mg/dL [facility] Comment:METER #: [id number] Testing performed in the Endocrinology Department [address] , [address], [facility]. 05/18/2024 10:1 7 AM EST 05/18/2024 10:22 AM EST us Generic External Data Provider LAB BLOOD ORDERAB LES Final Result [facility] [address] [place] [address] [phone] documented in this encounter Visit Diagnoses Not on filedocumented in this encounter Additional Health Concerns Assessment Noted Time PHQ-9 Depression Total Score: 9 01/29/20 24 11:00 AM EDT documented as of this encounter Care Teams Boiler Tube Reamer Relationship Specialty Start Date End Date Pascual Daly MD 230 [place] [address] PCP - General Internal Medicine 02/22/14 Fani Heck PharmD 230 [place] [address] Pharmacist Internal Medicine 12/16/22 documented as of this encounter
--- OUTSIDE RECORDS SUMMARY | 2024-06-04 11:50 | XMS_ITS | Encounter Summary ---
Author Organization [employer] Address 75 [facility] 7t [place] [address] Care Team Providers Care Offset Pressman Name Role Phone Pascual Daly MD Primary Care Provide r Fani Heck PharmD Unavailable [phone] Encounter Details Date Type Department Care Team (Latest Contact Info) Description 05/26/2019 Abstract [facility], Provider, DDS Social History Tobacco [...] Description 07/22/2024 10:30 AM EDT Clinical Support [facility] MED & PEDS 505 [place] [address] Amanda Fernández, AALIYAH 505 [place] [address] 08/03/2024 10:00 AM EDT Office Visit [facility] MED[facility] 230 [place], [place] [phone] Pascual Daly MD 230 [place] [address] documented as of this encounter Visit Diagnoses Not on filedocumented in this encounter Care Teams Offset Pressman Relationship Specialty Start Date End Date Pascual Daly MD 230 [place] [address] PCP - General Internal Medicine 02/22/14 Fani Heck, Woody 230 [place] [address] Pharmacist Internal Medicine 12/16/22 documented as of this encounter
--- OUTSIDE RECORDS SUMMARY | 2024-06-04 11:50 | XMS_ITS | Encounter Summary ---
Author Organization [employer] Address 75 [facility] 7t [place] [address] Care Team Providers Care Fire Fighter Airport Name Role Phone Pascual Daly MD Primary Care Provide r Fani Heck PharmD Unavailable [phone] Encounter Details Date Type Department Care Team (Late st Contact Info) Description 03/11/2022 Abstract [facility] MEDICINE [address] [place] [address] Fani Heck, PharmD 230 [place] [address] Social History Tobacco Use Types Packs/Day Years [...] 07/22/2024 10:30 AM EDT Clinical Support [facility] CHC MED & PEDS 505 [place] [address] Amanda Fernández, AALIYAH 505 [place] [address] 08/03/2024 10:00 AM EDT Office Visit [facility] MEDICINE 230 [place] [address] Pascual Daly MD [address] [place] [address] documented as of this encounter Visit Diagnoses Not on filedocumented in this encounter Care Teams Fire Fighter Airport Relationship Specialty Start Date End Date Pascual Daly MD [address] [place] [address] [phone] PCP - General Internal Medicine 02/22/14 Fani Heck, KristiD [address] [place] [address] [phone] Pharmacist Internal Medicine 12/16/22 documented as of this encounter
--- OUTSIDE RECORDS SUMMARY | 2024-06-04 11:50 | XMS_ITS | Encounter Summary ---
Author Organization [employer] Address 75 [facility] 7t [place] [address] Care Team Providers Care Tile Layer Drainage Name Role Phone Pascual Daly MD Primary Care Provide r Fani Heck PharmD Unavailable [phone] Reason for Visit * Reason Onset Date Comments Med Refill 05/13/2024 Encounter Details Date Type Department Care Team ([facility] st Contact Info) Description 05/13/2024 Telephone [facility] MEDICINE 230 [place] [address] Pascual Daly MD 230 [place] [address] Med Refill Social History Tobacco Use Types [...] immediate release tablet To be sent to: [facility] documented in this encounter Plan of Treatment Upcoming Encounters Date Type Department Care Team (Late st Contact Info) Description 07/22/2024 10:30 AM EDT Clinical Support [facility] CHC MED & PEDS 505 [place] [address] Amanda Fernández, AALIYAH 505 [place] [address] 08/03/2024 10:00 AM EDT Office Visit [facility] MEDICINE 230 [place] [address] Pascual Daly MD 230 [place] [address] documented as of this encounter Goals Goal [...] as of this encounter Care Teams Tile Layer Drainage Relationship Specialty Start Date End Date Pascual Daly MD 230 [place] [address] PCP - General Internal Medicine 02/22/14 Fani Heck, PharmD 230 [place] [address] Pharmacist Internal Medicine 12/16/22 documented as of this encounter
--- OUTSIDE RECORDS SUMMARY | 2024-06-04 11:50 | XMS_ITS | Encounter Summary ---
Author Organization [employer] Address 75 [facility] 7t [place] [address] Care Team Providers Care Hop Separator Name Role Phone Pascual Daly MD Primary Care Provide r Fani Heck PharmD Unavailable [phone] Reason for Visit * Reason Comments EMG Encounter Details Date Type Department Care Team (Late st Contact Info) Description 05/05/2024 11:30 AM EST Office Visit [facility] ADULT DENTAL 230 [place] [address] Santizo-Mckeon, Ammy, DDS 230 [place], [place] [phone] Aphthous ulcer (Primary Dx) Social History Tobacco [...] having some bledding on her gums) Location: [facility] Tooth: Lateral border of Tongue (L) and vestibule on 313 Procedure: Emergency Verified the above with patient, pharmacy assistant, and provider. Confirmed via patient's chart, intraorally and by radiographs. Diesel Dinkey Engineer: not applicable Chief Complaint Patient presents with EMG Medical Hx: Vitals: Blood pressure 133/70, pulse 72. Past Medical History: Diagnosis Date Anemia Anxiety Arthritis Asthma Diabetes mellitus (CMS/HCC) Disease of thyroid gland Hypertension Stroke ([facility]) Medications: Outpatient Encounter Medications [...] mouth in the morning. Continuous Glucose Sensor (dinCloud G7 Sensor) misc DIRECTED D3 Super Strength [...] all questions answered. Dismissed in good condition. Transportation Maintenance Worker: Lupis Guthrie Dentist: Ammy Owen DDS documented in this encounter Plan of Treatment Upcoming Encounters Date Type Department Care Team (Late st Contact Info) Description 07/22/2024 10:30 AM EDT Clinical Support [facility] CHC MED & PEDS 505 [place] [address] Amanda Fernández, RN 505 [place] [address] 08/03/2024 10:00 AM EDT Office Visit [facility] MEDICINE 230 [place] [address] Pascual Daly MD 230 [place] [address] documented as of this encounter Goals Goal Patient Goal Type Associated Problems Recent Progress Patient-Stated? Author Blood Pressure < 140/90 Blood Pressure 133/70( 025 11:28 AM EST) No Fani Heck, PharmD documented as of this encounter Procedures Procedure Name Priority Date/Time Associated Diagnosis Comments PALLIATIVE (EMERGENCY) TREATMENT OF DENTAL PAIN - MINOR PROCEDURE Routine 05/05/2024 11:30 AM EST Aphthous ulcer CASE PRESENTATION, DETAILED AND EXTENSIVE TREATMENT PLANNING Routine 05/05/2024 11:30 AM EST Aphthous ulcer documented in this encounter Visit Diagnoses Diagnosis Aphthous ulcer- Primary Oral aphthae documented in this encounter Additional Health Concerns Assessment Noted Time PHQ-9 Depression Total Score: 9 01/29/20 24 11:00 AM EDT documented as of this encounter Care Teams Hop Separator Relationship Specialty Start Date End Date Pascual Daly MD [address] [place] [address] PCP - General Internal Medicine 02/22/14 Fani Heck PharmD [address] [place] [address] Pharmacist Internal Medicine 12/16/22 documented as of this encounter
--- OUTSIDE RECORDS SUMMARY | 2024-06-04 11:50 | XMS_ITS | Encounter Summary ---
Author Organization [employer] Address 75 [facility] 7t [place] [address] Care Team Providers Care Community Health Program Representative Name Role Phone Pascual Daly MD Primary Care Provide r Fani Heck PharmD Unavailable [phone] Reason for Visit * Reason Onset Date Comments FYI 11/06/2023 Encounter Details Date Type Department Care Team ([facility] st Contact Info) Description 11/06/2023 Telephone [facility] MEDICINE 230 [place] [address] Pascual Daly MD 230 [place] [address] FYI Social History Tobacco Use Types Packs/Day [...] - 11/06/2023 4:39 PM EDT Tc from [facility] Iker CORDERO PT informing pt has started services For PT 11/06/23 documented in this encounter Plan of Treatment Upcoming Encounters Date Type Department Care Team (Late st Contact Info) Description 07/22/2024 10:30 AM EDT Clinical Support [facility] CHC MED & PEDS 505 [place] [address] Amanda Fernández RN 505 [place] [address] 08/03/2024 10:00 AM EDT Office Visit [facility] MEDICINE 230 [place] [address] Pascual Daly MD 230 [place] [address] documented as of this encounter Goals Goal [...] documented as of this encounter Care Teams Community Health Program Representative Relationship Specialty Start Date End Date Pascual Daly MD 230 [place] [address] PCP - General Internal Medicine 02/22/14 Fani Heck, PharmD 230 [place] [address] Pharmacist Internal Medicine 12/16/22 documented as of this encounter
--- OUTSIDE RECORDS SUMMARY | 2024-06-04 11:50 | XMS_ITS | Encounter Summary ---
Author Organization [employer] Address 75 [facility] 7t [place] [address] Care Team Providers Care Senior Sustainability Advisor Name Role Phone Pascual Daly MD Primary Care Provide r Fani Heck PharmD Unavailable [phone] Reason for Visit * Reason Onset Date Comments Med Refill 12/15/2023 Encounter Details Date Type Department Care Team ([facility] st Contact Info) Description 12/15/2023 Telephone [facility] MEDICINE 230 [place] [address] Pascual Daly MD 230 [place] [address] Med Refill Social History Tobacco Use Types [...] immediate release tablet To be sent to: [facility] [place], [place] - [address] [place] [address] documented in this encounter Plan of Treatment Upcoming Encounters Date Type Department Care Team ([facility] st Contact Info) Description 07/22/2024 10:30 AM EDT Clinical Support [facility] CHC MED & PEDS 505 [place] [address] Amanda Fernández RN 505 [place] [address] 08/03/2024 10:00 AM EDT Office Visit [facility] MEDICINE 230 [place] [address] Pascual Daly MD 230 [place] [address] documented as of this encounter Goals Goal [...] documented as of this encounter Care Teams Senior Sustainability Advisor Relationship Specialty Start Date End Date Pascual Daly MD 230 [place] [address] PCP - General Internal Medicine 02/22/14 Fani Heck, PharmD 230 [place] [address] Pharmacist Internal Medicine 12/16/22 documented as of this encounter
--- OUTSIDE RECORDS SUMMARY | 2024-06-04 11:50 | XMS_ITS | Encounter Summary ---
Author Organization [employer] Address 75 [facility] 7t [place] [address] Care Team Providers Care Mineral Mixer Name Role Phone Pascual Daly MD Primary Care Provide r Fani Heck PharmD Unavailable [phone] Encounter Details Date Type Department Care Team (Late st Contact Info) Description 03/11/2022 Abstract [facility] MEDICINE [address] [place] [address] Pascual Daly MD 230 [place] [address] Social History Tobacco Use Types Packs/Day Years [...] 10:30 AM EDT Clinical Support [facility] CHC MED & PEDS 505 [place], [place] [phone] Amanda Fernández, AALIYAH 505 [place] [address] 08/03/2024 10:00 AM EDT Office Visit [facility] MEDICINE [address] [place] [address] Pascual Daly MD 230 [place] [address] documented as of this encounter Visit Diagnoses Not on filedocumented in this encounter Care Teams Mineral Mixer Relationship Specialty Start Date End Date Pascual Daly MD [address] [place] [address] [phone] PCP - General Internal Medicine 02/22/14 Fani Heck PharmD [address] [place] [address] [phone] Pharmacist Internal Medicine 12/16/22 documented as of this encounter
--- OUTSIDE RECORDS SUMMARY | 2024-06-04 11:50 | XMS_ITS ---
Author Organization [facility] Address [address] [place] [address] Care Team Providers Care Vocational Counselor Name Role Phone Adolph Terry MD, Pascual Primary Care Provide r Vidal Castillo Jr, Cortes Unavailable Zeb Tang Unavailable Unavailable Encounters Encounter Location Date Provider Diagnosis [facility] [address] [place] [address] 11/24/2023 Cortes Castillo Jr PLAN OF TREATMENT Next Appt Details Provider Name:Cortes wilburn Jr, 11/24/2024 09:20:00 AM, [address], [address], [place], [address],
--- OUTSIDE RECORDS SUMMARY | 2024-06-04 11:50 | XMS_ITS | Encounter Summary ---
Author Organization [employer] Address [address] [facility] 7t [place] [address] Care Team Providers Care Target Setter Name Role Phone Pascual Daly MD Primary Care Provide r Fani Heck PharmD Unavailable [phone] Encounter Details Date Type Department Care Team (Late st Contact Info) Description 05/29/2022 Abstract [facility] MEDICINE [address] [place] [address] Pascual Daly MD [address] [place] [address] Social History Tobacco Use Types Packs/Day Years [...] Description 07/22/2024 10:30 AM EDT Clinical Support [facility]C MED & PEDS [address] [place] [address] Amanda Fernández, RN [address] [facility] [place], [place] 08/03/2024 10:00 AM EDT Office Visit [facility] MEDICINE [address] [facility] [place] [address] Pascual Daly MD [address] [facility] [place] [address] documented as of this encounter Goals Goal [...] documented as of this encounter Care Teams Target Setter Relationship Specialty Start Date End Date Pascual Daly MD 230 [facility] [place] [address] PCP - General Internal Medicine 02/22/14 Fani Heck PharmD [facility] [place] [address] Pharmacist Internal Medicine 12/16/22 documented as of this encounter
--- OUTSIDE RECORDS SUMMARY | 2024-06-04 11:50 | XMS_ITS | Encounter Summary ---
Author Organization [employer] Address [address] [facility] 7t [place] [address] Care Team Providers Care Supervisor Building Maintenance Name Role Phone Pascual Daly MD Primary Care Provide r Fani Heck PharmD Unavailable [phone] Encounter Details Date Type Department Care Team (Late st Contact Info) Description 06/04/2024 Orders Only GENERIC EXTERNAL DATA [...] your housing situation today? I have sarahy pantjoa 07/24/[address] you li [...] Description 07/22/2024 10:30 AM EDT Clinical Support [facility] CHC MED & PEDS [address] [place], [place] [phone] Amanda Fernández, AALIYAH 505 [place] [address] 08/03/2024 10:00 AM EDT Office Visit [facility] MEDICINE [address] [place] [address] Pascual Daly MD [address] [place] [address] documented as of this encounter Goals Goal Patient Goal Type Associated Problems Recent Progress Patient-Stated? Author Blood Pressure < 140/90 Blood Pressure 133/70( 025 11:28 AM EST) No Fani Heck, KristiD documented as of this encounter Procedures Procedure Name Priority Date/Time Associated Diagnosis Comments GLUCOSE, WHOLE BLOOD Routine 06/04/2024 11:14 AM EST documented in this encounter Results * (ABNORMAL) Glucose, Whole Blood (06/04/2024 11:14 AM EST) Glucose, Whole Blood 121(H) 60 - 115 mg/dL [facility] Comment:METER #: [id number] 5Testing performed in the Endocrinology Department [address] , [address], [facility]. 06/04/2024 11:1 4 AM EST 06/04/2024 11:19 AM EST us Generic External Data Provider LAB BLOOD ORDERAB LES Final Result [facility] [address] [place] [address] [phone] documented in this encounter Visit Diagnoses Not on filedocumented in this encounter Additional Health Concerns Assessment Noted Time PHQ-9 Depression Total Score: 9 01/29/20 24 11:00 AM EDT documented as of this encounter Care Teams Supervisor Building Maintenance Relationship Specialty Start Date End Date Pascual Daly MD [address] [place] [address] PCP - General Internal Medicine 02/22/14 Fani Heck PharmD [address] [place] [address] Pharmacist Internal Medicine 12/16/22 documented as of this encounter
== END 2024-06-04 11:30 | disposition home or self-care (01) ==
PROVIDERS: PCP Internal Medicine; Visit Provider Nurse Practitioner Adult Health
DX: E10.649 Type 1 diabetes mellitus with hypoglycemia without coma (principal); E21.1 Secondary hyperparathyroidism, not elsewhere classified; E03.8 Other specified hypothyroidism; E06.3 Autoimmune thyroiditis
CPT/HCPCS: 99214

== ENCOUNTER → 2024-06-04 10:52 | Outpatient (BNVA) | payer OTHER, SELFPAY | PROVIDERS: PCP Internal Medicine; Visit Provider Nurse Practitioner Adult Health | DX: E10.649 Type 1 diabetes mellitus with hypoglycemia without coma (principal); E21.1 Secondary hyperparathyroidism, not elsewhere classified; E03.8 Other specified hypothyroidism; E06.3 Autoimmune thyroiditis | CPT/HCPCS: 82947; 99212 ==

== ENCOUNTER 2024-06-15 10:06 | Outpatient (REF) | payer OTHER, SELFPAY ==
[2024-06-15 11:14] LABS: MANUAL DIFF FLAG NO
[2024-06-15 11:20] LABS: Basophils Absolute Auto 0.1 X10*3/uL (0.0-0.2); Basophils Percent Auto 1.1 % (0-2); Eosinophils Absolute Auto 1.5 X10*3/uL (0.0-0.4); Eosinophils Percent Auto 14.2 % (0-4); Hematocrit 35.5 % (37.0-47.0); Hemoglobin 11.2 g/dl (12.0-16.0); Imm Gran Abs Auto 0.05 X10*3/uL (0.00-0.03); Imm Gran Pct Auto 0.5 % (0.0-0.4); Lymphocytes Absolute Auto 2.6 X10*3/uL (1.2-4.9); Lymphocytes Percent Auto 25.8 % (20-40); Mean Corpuscular HGB Conc 31.5 g/dl (31.0-35.0); Mean Corpuscular Hemoglobin 27.7 pg (27.0-33.0); Mean Corpuscular Volume 87.7 fL (80.0-98.0); Mean Platelet Volume 11.1 fL (9.4-12.3); Monocytes Absolute Auto 0.6 X10*3/uL (0.1-1.2); Monocytes Percent Auto 5.7 % (2-11); Neutrophils Absolute Auto 5.4 x10*3/uL (2.0-8.3); Neutrophils Percent Auto 52.7 % (45-73); Platelet Count 175 X10*3/uL (160-400); Red Blood Count 4.05 X10*6/uL (4.20-5.50); Red Cell Distribution Width 14.5 % (11.0-16.0); White Blood Count 10.2 X10*3/uL (4.8-10.8)
[2024-06-15 12:00] LABS: Erythrocyte Sedimentation Rate 2 MM/HR (0-20)
[2024-06-15 12:15] LABS: Parathyroid Hormone Intact 101.8 pg/mL (8.7-77.1)
[2024-06-15 12:17] LABS: Alanine Aminotransferase 56 U/L (0-31); Alkaline Phosphatase 80 U/L (39-117); Anion Gap 13 (12-20); Aspartate Amino Transferase 48 U/L (5-31); Bilirubin Total 0.3 mg/dL (0.0-1.0); Blood Urea Nitrogen 20 mg/dL (9-16); C Reactive Protein < 0.10 mg/dL (< or = 0.50); Calcium 9.5 mg/dL (8.4-10.2); Carbon Dioxide 26 mmol/L (22-29); Chloride 109 mmol/L (96-108); Cholesterol 132 mg/dL (<200); Estimated Glomerular Filt Rate 42; Glucose Random 102 mg/dL (60-115); HDL Cholesterol 61 mg/dL (>40); LDL Cholesterol Calculated 47 mg/dL (<100); Potassium 4.9 mmol/L (3.3-5.1); Sodium 143 mmol/L (135-145); Total Protein 6.8 g/dL (6.5-8.0); Triglycerides 124 mg/dL (<150)
[2024-06-15 12:21] LABS: Calcium 9.5 mg/dL (8.4-10.2); Cholesterol 127 mg/dL (<200); HDL Cholesterol 61 mg/dL (>40); LDL Cholesterol Calculated 42 mg/dL (<100); Triglycerides 121 mg/dL (<150)
[2024-06-15 12:28] LABS: TSH reflex Free T4 4.36 uIU/mL (0.32-4.0); Vitamin D 25-OH Total 44.2 ng/mL (>30)
[2024-06-15 12:31] LABS: HBc Num1 0.12 S/CO (0.00-0.79); HBsAGNum1 0.27 S/CO (0.00-0.99); Hepatitis A Antibody IgM 0.23 Index (0-0.79); Hepatitis B Core Antibody Nonreactive (Nonreactive); Hepatitis B Surface Antigen Negative (Negative); ~HepC Num1 1.24 S/CO (0.00-0.79); ~Hepatitis A Antibody IgM Nonreactive (Nonreactive); ~Hepatitis B Surface Antibody NONREACTIVE (Nonreactive); ~Hepatitis C Antibody Reactive (Nonreactive)
--- OUTSIDE RECORDS SUMMARY | 2024-06-15 13:12 | XMS_ITS | Encounter Summary ---
Author Organization [employer] Address [address] [facility] [address] 7t [place] [address] Care Team Providers Care Odd Job Worker Name Role Phone Pascual Daly MD Primary Care Provide r Fani Heck PharmD Unavailable [phone] Reason for Visit * Reason Comments Med Refill Encounter Details Date Type Department Care Team (Late st Contact Info) Description 03/27/2023 Refill [facility] MED & PEDS [address] [place] [address] Titi Gray FNP Major depressive disorder with [...] Description 07/22/2024 10:30 AM EDT Clinical Support [facility] MED & PEDS 505 [place] [address] Amanda Fernández, AALIYAH 505 [place] [address] 08/03/2024 10:00 AM EDT Office Visit [facility] MEDICINE 230 [place] [address] Pascual Daly MD [address] [place] [address] documented as of this encounter Goals Goal [...] documented as of this encounter Care Teams Odd Job Worker Relationship Specialty Start Date End Date Pascual Daly MD [address] [place] [address] PCP - General Internal Medicine 02/22/14 Fani Heck, PharmD [address] [place] [address] Pharmacist Internal Medicine 12/16/22 documented as of this encounter
--- OUTSIDE RECORDS SUMMARY | 2024-06-15 13:13 | XMS_ITS | Encounter Summary ---
Author Organization [employer] Address 75 [facility] 7t [place] [address] Care Team Providers Care Piano Accompanist Name Role Phone Pascual Daly MD Primary Care Provide r Fani Heck PharmD Unavailable [phone] Encounter Details Date Type Department Care Team [...] Clinical Support [facility] CHC MED & PEDS 505 [place], [place] [phone] Amanda Fernández, AALIYAH 505 [place] [address] 08/03/2024 10:00 AM EDT Office Visit [facility] MEDICINE 230 [place] [address] Pascual Daly MD 230 [place] [address] documented as of this encounter Goals Goal Patient Goal Type Associated Problems Recent Progress Patient-Stated? Author Blood Pressure < 140/90 Blood Pressure 133/70( 025 11:28 AM EST) No Fani Heck, KristiD documented as of this encounter Procedures Procedure Name Priority Date/Time Associated Diagnosis Comments PTH, INTACT WITHOUT CALCIUM Routine 06/15/2024 11:09 AM EST GLUCOSE, WHOLE BLOOD Routine 06/15/2024 10:16 AM EST documented in this encounter Results * (ABNORMAL) PTH, Intact Without Calcium (06/15/2024 11:09 AM EST) Parathyroid Hormone, Intact 101.8(H) 8.7 - 77.1 pg/mL [facility] 06/15/2024 11:0 9 AM EST 06/15/2024 11:13 AM EST us Generic External Data Provider LAB BLOOD ORDERAB LES Final Result Performing Organization Address City/[facility]/ZIP Co de Phone Number [facility] [address] [place] [phone] [phone] * Glucose, Whole Blood (06/15/2024 10:16 AM EST) Glucose, Whole Blood 105 60 - 115 mg/dL [facility] Comment:METER #: [id number] Testing performed in the Endocrinology Department [address] , [address], [facility]. 06/15/2024 10:1 6 AM EST 06/15/2024 10:21 AM EST us Generic External Data Provider LAB BLOOD ORDERAB LES Final Result Performing Organization Address [facility] Co de Phone Number [facility] [address] [place] [address] [phone] documented in this encounter Visit Diagnoses Not on filedocumented in this encounter Additional Health Concerns Assessment Noted Time PHQ-9 Depression Total Score: 9 01/29/20 24 11:00 AM EDT documented as of this encounter Care Teams Piano Accompanist Relationship Specialty Start Date End Date Pascual Daly MD 230 [place] [address] PCP - General Internal Medicine 02/22/14 Fani Heck PharmD 230 [place] [address] Pharmacist Internal Medicine 12/16/22 documented as of this encounter
--- OUTSIDE RECORDS SUMMARY | 2024-06-15 13:13 | XMS_ITS | Encounter Summary ---
Author Organization [employer] Address [address] [facility] [address] 7t [place] [address] Care Team Providers Care Sharepoint Solutions Developer Name Role Phone Pascual Daly MD Primary Care Provide r Fani Heck PharmD Unavailable [phone] Reason for Visit * Reason Comments Med Refill Encounter Details Date Type Department Care Team (Late st Contact Info) Description 08/26/2023 Refill [facility] [address] [place] [address] [phone] Momo Rizo MD [address] [place] [address] Benign hypertension Social History Tobacco Use Types [...] 10:30 AM EDT Clinical Support [facility] CHC MED & PEDS 505 [place] [address] Amanda Fernández, AALIYAH 505 [place] [address] 08/03/2024 10:00 AM EDT Office Visit [facility] MEDICINE 230 [place] [address] Pascual Daly MD [address] [place] [address] documented as of this encounter Goals Goal Patient Goal Type Associated Problems Recent Progress Patient-Stated? Author Blood Pressure < 140/90 Blood Pressure 133/70( 025 11:28 AM EST) No Fani Hekc, KristiD documented as of this encounter Visit Diagnoses Diagnosis Benign hypertension Essential hypertension, benign documented in this encounter Additional Health Concerns Assessment Noted Time PHQ-9 Depression Total Score: 11 024 10:24 AM EST documented as of this encounter Care Teams Sharepoint Solutions Developer Relationship Specialty Start Date End Date Pascual Daly MD [address] [place] [address] PCP - General Internal Medicine 02/22/14 Fani Heck, KristiD [address] [place] [address] Pharmacist Internal Medicine 12/16/22 documented as of this encounter
--- OUTSIDE RECORDS SUMMARY | 2024-06-15 13:13 | XMS_ITS | Encounter Summary ---
Author Organization [employer] Address 75 [facility] 7t [place] [address] Care Team Providers Care Criminology Professor Name Role Phone Pascual Daly MD Primary Care Provide r Fani Heck PharmD Unavailable [phone] Reason for Visit * Reason Onset Date Comments FYI 12/31/2023 Encounter Details Date Type Department Care Team ([facility] st Contact Info) Description 12/31/2023 Telephone [facility] MEDICINE 230 [place] [address] Pascual Daly MD 230 [place] [address] FYI Social History Tobacco Use Types Packs/Day [...] any questions you can contact Franky at [phone]. documented in this encounter Plan of Treatment Upcoming Encounters Date Type Department Care Team ([facility] st Contact Info) Description 07/22/2024 10:30 AM EDT Clinical Support [facility] CHC MED & PEDS 505 [place] [address] Amanda Fernández, AALIYAH 505 [place] [address] 08/03/2024 10:00 AM EDT Office Visit [facility] MEDICINE 230 [place] [address] Pascual Daly MD 230 [place] [address] documented as of this encounter Goals Goal [...] documented as of this encounter Care Teams Criminology Professor Relationship Specialty Start Date End Date Pascual Daly MD 230 [place] [address] PCP - General Internal Medicine 02/22/14 Fani Heck, PharmD 230 [place] [address] Pharmacist Internal Medicine 12/16/22 documented as of this encounter
--- OUTSIDE RECORDS SUMMARY | 2024-06-15 13:13 | XMS_ITS | Encounter Summary ---
Author Organization [employer] Address 75 [facility] 7t [place] [address] Care Team Providers Care Packer Name Role Phone Pascual Daly MD Primary Care Provide r Fani Heck PharmD Unavailable [phone] Reason for Visit * Reason Comments Med Refill Encounter Details Date Type Department Care Team (Late Contact Info) Description 10/02/2022 Refill [facility] MEDICINE 230 [place] [address] Titi Gray FNP Major depressive disorder with [...] [facility] MED [facility] 505 [place] [address] Amanda Fernández, AALIYAH 505 [place] [address] 08/03/2024 10:00 AM EDT Office Visit [facility] MED[facility] 230 [facility] [address] Pascual Daly MD 230 [place] [address] documented as of this encounter Goals Goal [...] documented as of this encounter Care Teams Packer Relationship Specialty Start Date End Date Pascual Daly MD 230 [place] [address] PCP - General Internal Medicine 02/22/14 Fani Heck, PharmD 230 [place] [address] Pharmacist Internal Medicine 12/16/22 documented as of this encounter
--- OUTSIDE RECORDS SUMMARY | 2024-06-15 13:13 | XMS_ITS | Encounter Summary ---
Author Organization [employer] Address [address] [facility] [address] 7t [place] [address] Care Team Providers Care Mushroom Spawn Maker Name Role Phone Pascual Daly MD Primary Care Provide r Fani Heck PharmD Unavailable [phone] Reason for Visit * Reason Comments Med Refill Encounter Details Date Type Department Care Team (Late st Contact Info) Description 01/14/2024 Refill [facility] MED & PEDS [address] [place] [address] Pascual Daly MD 230 [place], [place] [phone] Fibromyalgia Social History Tobacco Use Types Packs/Day [...] 07/22/2024 10:30 AM EDT Clinical Support [facility] MED & PEDS 505 [place] [address] Amanda Fernández, AALIYAH 505 [place] [address] 08/03/2024 10:00 AM EDT Office Visit [facility] MEDICINE 230 [place] [address] Pascual Daly MD [address] [place] [address] documented as of this encounter Goals Goal [...] documented as of this encounter Care Teams Mushroom Spawn Maker Relationship Specialty Start Date End Date Pascual Daly MD [address] [place] [address] PCP - General Internal Medicine 02/22/14 Fani Heck, KristiD [address] [place] [address] [place] [phone] Pharmacist Internal Medicine 12/16/22 documented as of this encounter
--- OUTSIDE RECORDS SUMMARY | 2024-06-15 13:13 | XMS_ITS | Encounter Summary ---
Author Organization [employer] Address 75 [facility] 7t [place] [address] Care Team Providers Care Manager Army Name Role Phone Pascual Daly MD Primary Care Provide r Fani Heck PharmD Unavailable [phone] Reason for Visit * Reason Comments Med Refill Encounter Details Date Type Department Care Team (Late st Contact Info) Description 07/16/2022 Refill [facility] MEDICINE 230 [place] [address] Pascual Daly MD 230 [place], [place] [phone] Social History Tobacco Use Types Packs/Day Years [...] 07/22/2024 10:30 AM EDT Clinical Support [facility] CHC MED & PEDS 505 [place] [address] Amanda Fernández, RN 505 [place], [place] 08/03/2024 10:00 AM EDT Office Visit [facility] MEDICINE 230 [place] [address] Pascual Daly MD 230 [place] [address] documented as of this encounter Goals Goal [...] as of this encounter Care Teams Manager Army Relationship Specialty Start Date End Date Pascual Daly MD [address] [place] [address] PCP - General Internal Medicine 02/22/14 Fani Heck, PharmD [address] [place] [address] Pharmacist Internal Medicine 12/16/22 documented as of this encounter
--- OUTSIDE RECORDS SUMMARY | 2024-06-15 13:13 | XMS_ITS | Encounter Summary ---
Author Organization [employer] Address 75 [facility] 7t [place] [address] Care Team Providers Care Shellfish Sorter Name Role Phone Pascual Daly MD Primary Care Provide r Fani Heck PharmD Unavailable [phone] Reason for Visit * Reason Onset Date Comments Appointment Request 09/03/2022 Encounter Details Date Type Department Care Team ([facility] st Contact Info) Description 09/03/2022 Telephone [facility] MEDICINE 230 [place] [address] Pascual Daly MD 230 [place] [address] Appointment Request Social History Tobacco Use Types [...] [facility] MED & PEDS 505 [place] [address] Amanda Fernández, RN 505 [place] [address] 08/03/2024 10:00 AM EDT Office Visit [facility] MEDICINE 230 [place] [address] Pascual Daly MD 230 [place] [address] documented as of this encounter Goals Goal [...] documented as of this encounter Care Teams Shellfish Sorter Relationship Specialty Start Date End Date Pascual Daly MD [address] [place] [address] PCP - General Internal Medicine 02/22/14 Fani Heck PharmD [address] [place] [address] Pharmacist Internal Medicine 12/16/22 documented as of this encounter
--- OUTSIDE RECORDS SUMMARY | 2024-06-15 13:13 | XMS_ITS | Encounter Summary ---
Author Organization [employer] Address 75 [facility] 7t [place] [address] Care Team Providers Care Railway Traction Line Worker Name Role Phone Pascual Daly MD Primary Care Provide r Fani Heck PharmD Unavailable [phone] Reason for Visit * Reason Comments Med Refill Encounter Details Date Type Department Care Team (Late Contact Info) Description 08/08/2022 Refill [facility] [address] [place] [address] Momo Rizo MD [address] [place] [address] Mild intermittent asthma without complication Social History [...] 10:30 AM EDT Clinical Support [facility] CHC MED & PEDS 505 [place] [address] Amanda Fernández, AALIYAH 505 [place] [address] 08/03/2024 10:00 AM EDT Office Visit [facility] MEDICINE [address] [place] [address] Pascual Daly MD [address] [place] [address] documented as of this encounter Goals Goal [...] documented as of this encounter Care Teams Railway Traction Line Worker Relationship Specialty Start Date End Date Pascual Daly MD [address] [place] [address] PCP - General Internal Medicine 02/22/14 Fani Heck, PharmD [address] [place] [address] Pharmacist Internal Medicine 12/16/22 documented as of this encounter
--- OUTSIDE RECORDS SUMMARY | 2024-06-15 13:13 | XMS_ITS | Encounter Summary ---
Author Organization [employer] Address 75 [facility] 7t [place] [address] Care Team Providers Care Type Casting Machine Operator Name Role Phone Pascual Daly MD Primary Care Provide r Fani Heck PharmD Unavailable [phone] Reason for Visit * Reason Comments Med Refill Encounter Details Date Type Department Care Team (Late st Contact Info) Description 09/26/2023 Refill [facility] MEDICINE 230 [place] [address] Pascual Daly MD 230 [place], [place] [phone] Social History Tobacco Use Types Packs/Day Years [...] Description 07/22/2024 10:30 AM EDT Clinical Support [facility] CHC MED & PEDS 505 [place] [address] Amanda Fernández, AALIYAH 505 [place] [address] 08/03/2024 10:00 AM EDT Office Visit [facility] MEDICINE 230 [place] [address] Pascual Daly MD 230 [place] [address] documented as of this encounter Goals Goal [...] as of this encounter Care Teams Type Casting Machine Operator Relationship Specialty Start Date End Date Pascual Daly MD 230 [place] [address] PCP - General Internal Medicine 02/22/14 Fani Heck, Woody [address] [place] [address] Pharmacist Internal Medicine 12/16/22 documented as of this encounter
--- OUTSIDE RECORDS SUMMARY | 2024-06-15 13:13 | XMS_ITS | Encounter Summary ---
Author Organization [employer] Address 75 [facility] 7t [place] [address] Care Team Providers Care Commissioned Fire Officer Name Role Phone Pascual Daly MD Primary Care Provide r Fani Heck PharmD Unavailable [phone] Reason for Visit * Reason Onset Date Comments Med Refill 06/10/2024 Encounter Details Date Type Department Care Team (Late st Contact Info) Description 06/10/2024 Refill [facility] MEDIC[facility] 230 [place] [address] Pascual Daly MD 230 [place], [place] [phone] Fibromyalgia Social History Tobacco Use Types Packs/Day [...] immediate release tablet To be sent to: [facility] - [place], [place] - [address] [place] [address] documented in this encounter Plan of Treatment Upcoming Encounters Date Type Department Care Team ([facility] st Contact Info) Description 07/22/2024 10:30 AM EDT Clinical Support [facility] 505 [place] [address] Amanda Fernández RN 505 [place] [address] 08/03/2024 10:00 AM EDT Office Visit [facility] MEDICINE 230 [place] [address] Pascual Daly MD 230 [place] [address] documented as of this encounter Goals Goal [...] documented as of this encounter Care Teams Commissioned Fire Officer Relationship Specialty Start Date End Date Pascual Daly MD 230 [place] [address] PCP - General Internal Medicine 02/22/14 Fani Heck, Woody 230 [place] [address] Pharmacist Internal Medicine 12/16/22 documented as of this encounter
--- OUTSIDE RECORDS SUMMARY | 2024-06-15 13:13 | XMS_ITS | Encounter Summary ---
Author Organization [employer] Address 75 [facility] 7t [place] [address] Care Team Providers Care State Superintendent Of Schools Name Role Phone Pascual Daly MD Primary Care Provide r Fani Heck PharmD Unavailable [phone] Encounter Details Date Type Department Care Team (Late Contact Info) Description 07/01/2022 Abstract [facility] WALK-IN CENTER [address] [place] [address] Pascual Daly MD 230 [place] [address] Social History Tobacco Use Types Packs/Day Years [...] Description 07/22/2024 10:30 AM EDT Clinical Support [facility] CHC MED & PEDS [address] [place] [address] Amanda Fernández, AALIYAH [address] [place] [address] 08/03/2024 10:00 AM EDT Office Visit [facility] MEDICINE 230 [place] [address] Pascual Daly MD [address] [place] [address] documented as of this encounter Goals Goal [...] documented as of this encounter Care Teams State Superintendent Of Schools Relationship Specialty Start Date End Date Pascual Daly MD 230 [place] [address] PCP - General Internal Medicine 02/22/14 Fani Heck, PharmD [address] [place] [address] Pharmacist Internal Medicine 12/16/22 documented as of this encounter
--- OUTSIDE RECORDS SUMMARY | 2024-06-15 13:13 | XMS_ITS | Encounter Summary ---
Author Organization [employer] Address 75 [facility] 7t [place] [address] Care Team Providers Care Envelope Folding Machine Operator Name Role Phone Pascual Daly MD Primary Care Provide r Fani Heck PharmD Unavailable [phone] Encounter Details Date Type Department Care Team ([facility] st Contact Info) Description 09/25/2023 Telephone [facility] MEDICINE 230 [place] [address] Pascual Daly MD 230 [place] [address] Social History Tobacco Use Types Packs/Day Years [...] 10:30 AM EDT Clinical Support [facility] CHC MED & PEDS 505 [place] [address] Amanda Fernández, RN 505 [place] [address] 08/03/2024 10:00 AM EDT Office Visit [facility] MEDICINE [address] [place] [address] Pascual Daly MD [address] [place] [address] documented as of this encounter Goals Goal Patient Goal Type Associated Problems Recent Progress Patient-Stated? Author Blood Pressure < 140/90 Blood Pressure 133/70( 025 11:28 AM EST) No Fani Heck, PharmD documented as of this encounter Visit Diagnoses Diagnosis Type 2 diabetes mellitus without complication, with long-term current use of insulin ([facility]) documented in this encounter Additional Health Concerns Assessment Noted Time PHQ-9 Depression Total Score: 11 024 10:24 AM EST documented as of this encounter Care Teams Envelope Folding Machine Operator Relationship Specialty Start Date End Date Pascual Daly MD [address] [place] [address] PCP - General Internal Medicine 02/22/14 Fani Heck, KristiD [address] [place] [address] Pharmacist Internal Medicine 12/16/22 documented as of this encounter
--- OUTSIDE RECORDS SUMMARY | 2024-06-15 13:13 | XMS_ITS | Encounter Summary ---
Author Organization [employer] Address 75 [facility] 7t [place] [address] Care Team Providers Care Licensed Embalmer Supervisor Name Role Phone Pascual Daly MD Primary Care Provide r Fani Heck PharmD Unavailable [phone] Encounter Details Date Type Department Care Team (Late Contact Info) Description 08/29/2022 Abstract [facility] MEDICINE 230 [place] [address] Pascual Daly MD 230 [place] [address] Social History Tobacco Use Types Packs/Day Years [...] Description 07/22/2024 10:30 AM EDT Clinical Support [facility] CHC MED & PEDS [address] [place] [address] Amanda Fernández, AALIYAH [address] [place], [place] 08/03/2024 10:00 AM EDT Office Visit [facility] MEDICINE 230 [place] [address] Pascual Daly MD [address] [place] [address] documented as of this encounter Goals Goal [...] documented as of this encounter Care Teams Licensed Embalmer Supervisor Relationship Specialty Start Date End Date Pascual Daly MD [address] [place], [place] [phone] PCP - General Internal Medicine 02/22/14 Fani Heck PharmD [address] [place], [place] [phone] Pharmacist Internal Medicine 12/16/22 documented as of this encounter
--- OUTSIDE RECORDS SUMMARY | 2024-06-15 13:13 | XMS_ITS | Encounter Summary ---
Author Organization [employer] Address [address] [facility] [address] 7t [place] [address] Care Team Providers Care Exhibits Manager Name Role Phone Pascual Daly MD Primary Care Provide r Fani Heck PharmD Unavailable [phone] Reason for Visit * Reason Comments Med Refill Encounter Details Date Type Department Care Team (Late st Contact Info) Description 10/21/2023 Refill [facility] MEDICINE [address] [place] [address] Titi Gray FNP Major depressive disorder with [...] Upcoming Encounters Date Type Department Care Team ([facility] st Contact Info) Description 07/22/2024 10:30 AM EDT Clinical Support [facility] CHC MED & PEDS 505 [place] [address] Amanda Fernández RN 505 [place] [address] 08/03/2024 10:00 AM EDT Office Visit [facility] MEDICINE [address] [place] [address] Pascual Daly MD [address] [place] [address] documented as of this encounter Goals Goal [...] documented as of this encounter Care Teams Exhibits Manager Relationship Specialty Start Date End Date Pascual Daly MD [address] [place] [address] PCP - General Internal Medicine 02/22/14 Fani Heck, PharmD [address] [place] [address] Pharmacist Internal Medicine 12/16/22 documented as of this encounter
--- OUTSIDE RECORDS SUMMARY | 2024-06-15 13:13 | XMS_ITS | Encounter Summary ---
Author Organization [employer] Address 75 [facility] 7t [place] [address] Care Team Providers Care Editor Continuity And Script Name Role Phone Pascual Daly MD Primary Care Provide r Fani Heck PharmD Unavailable [phone] Encounter Details Date Type Department Care Team (Late st Contact Info) Description 05/29/2022 Abstract [facility] MEDICINE 230 [place] [address] Pascual Daly MD 230 [place] [address] Social History Tobacco Use Types Packs/Day Years [...] 07/22/2024 10:30 AM EDT Clinical Support [facility] CHC MED & PEDS [address] [place] [address] Amanda Fernández, RN [address] [facility] [place], [place] 08/03/2024 10:00 AM EDT Office Visit [facility] MEDICINE 230 [facility] [place] [address] Pascual Daly MD 230 [facility] [place] [address] documented as of this encounter Goals Goal [...] documented as of this encounter Care Teams Editor Continuity And Script Relationship Specialty Start Date End Date Pascual Daly MD [address] [facility] [place] [address] PCP - General Internal Medicine 02/22/14 Fani Heck PharmD [facility] [place] [address] Pharmacist Internal Medicine 12/16/22 documented as of this encounter
--- OUTSIDE RECORDS SUMMARY | 2024-06-15 13:13 | XMS_ITS | Encounter Summary ---
Author Organization [employer] Address 75 [facility] 7t [place] [address] Care Team Providers Care Box Sealing Inspector Name Role Phone Pascual Daly MD Primary Care Provide r Fani Heck PharmD Unavailable [phone] Reason for Visit * Reason Onset Date Comments FYI 12/11/2023 Durable Medical Equipment 12/11/2023 Encounter Details Date Type Department Care Team (Late st Contact Info) Description 12/11/2023 Telephone [facility] MEDICINE 230 [place], [place] [phone] Pascual Daly MD 230 [place], [place] [phone] FYI ; Durable Medical Equipment Social History [...] two DME scripts to be sent to [facility] which: [facility] bed Please fax over to [phone] documented in this encounter Plan of Treatment Upcoming Encounters Date Type Department Care Team (Late st Contact Info) Description 07/22/2024 10:30 AM EDT Clinical Support [facility] CHC MED & PEDS 505 [place] [address] Amanda Fernández RN 505 [place] [address] 08/03/2024 10:00 AM EDT Office Visit [facility] MEDICINE 230 [place] [address] Pascual Daly MD 230 [place] [address] documented as of this encounter Goals Goal Patient Goal Type Associated Problems Recent Progress Patient-Stated? Author Blood Pressure < 140/90 Blood Pressure 133/70( 025 11:28 AM EST) No Fani eHck, Woody documented as of this encounter Visit Diagnoses Not on filedocumented in this encounter Additional Health Concerns Assessment Noted Time PHQ-9 Depression Total Score: 11 024 10:24 AM EST documented as of this encounter Care Teams Box Sealing Inspector Relationship Specialty Start Date End Date Pascual Daly MD 230 [place] [address] PCP - General Internal Medicine 02/22/14 Fani Heck, KristiD [address] [place] [address] Pharmacist Internal Medicine 12/16/22 documented as of this encounter
--- OUTSIDE RECORDS SUMMARY | 2024-06-15 13:13 | XMS_ITS | Encounter Summary ---
Author Organization [employer] Address [address] [facility] [address] 7t [place] [address] Care Team Providers Care Gas Engine Operator Generators Name Role Phone Pascual Daly MD Primary Care Provide r Fani Heck PharmD Unavailable [phone] Reason for Visit * Reason Comments Med Refill Encounter Details Date Type Department Care Team (Late st Contact Info) Description 01/01/2024 Refill [facility] WALK-IN CENTER [address] [place] [address] [phone] Momo Rizo MD [address] [place] [address] Social History Tobacco Use Types Packs/Day Years [...] Description 07/22/2024 10:30 AM EDT Clinical Support [facility] CHC MED & PEDS 505 [place] [address] Amanda Fernández RN 505 [place] [address] 08/03/2024 10:00 AM EDT Office Visit [facility] MEDICINE 230 [place] [address] Pascual Daly MD 230 [place] [address] documented as of this encounter Goals Goal [...] documented as of this encounter Care Teams Gas Engine Operator Generators Relationship Specialty Start Date End Date Pascual Daly MD 230 [place] [address] PCP - General Internal Medicine 02/22/14 Fani Heck, Woody [address] [place] [address] Pharmacist Internal Medicine 12/16/22 documented as of this encounter
--- OUTSIDE RECORDS SUMMARY | 2024-06-15 13:13 | XMS_ITS | Encounter Summary ---
Author Organization [employer] Address [address] [facility] [address] 7t [place] [address] Care Team Providers Care Surgeon/President Name Role Phone Pascual Daly MD Primary Care Provide r Fani Heck PharmD Unavailable [phone] Reason for Visit * Reason Comments Med Refill Encounter Details Date Type Department Care Team (Late st Contact Info) Description 10/21/[address] [facility] MEDICINE 230 [place] [address] Titi Gray FNP Major depressive disorder with [...] AM EDT Clinical Support [facility] CHC MED & PEDS 505 [place] [address] Amanda Fernández RN 505 [place] [address] 08/03/2024 10:00 AM EDT Office Visit [facility] MEDICINE 230 [place] [address] Pascual Daly MD [address] [place] [address] documented as of this encounter Goals Goal [...] documented as of this encounter Care Teams Surgeon/President Relationship Specialty Start Date End Date Pascual Daly MD [address] [place] [address] PCP - General Internal Medicine 02/22/14 Fani Heck, PharmD [address] [place] [address] Pharmacist Internal Medicine 12/16/22 documented as of this encounter
--- OUTSIDE RECORDS SUMMARY | 2024-06-15 13:13 | XMS_ITS | Encounter Summary ---
Author Organization [employer] Address [address] [facility] [address] 7t [place] [address] Care Team Providers Care Nursing Aide Name Role Phone Pascual Daly MD Primary Care Provide r Fani Heck PharmD Unavailable [phone] Reason for Visit * Reason Comments Med Refill Encounter Details Date Type Department Care Team (Late st Contact Info) Description 07/20/2023 Refill [facility] MEDICINE 230 [place] [address] Titi Gray FNP Major depressive disorder with [...] Upcoming Encounters Date Type Department Care Team ([facility] st Contact Info) Description 07/22/2024 10:30 AM EDT Clinical Support [facility] CHC MED & PEDS 505 [place] [address] Amanda Fernández RN 505 [place] [address] 08/03/2024 10:00 AM EDT Office Visit [facility] MEDICINE 230 [place] [address] Pascual Daly MD [address] [place] [address] documented as of this encounter Goals Goal [...] as of this encounter Care Teams Nursing Aide Relationship Specialty Start Date End Date Pascual Daly MD [address] [place] [address] PCP - General Internal Medicine 02/22/14 Fani Heck, PharmD [address] [place] [address] Pharmacist Internal Medicine 12/16/22 documented as of this encounter
--- OUTSIDE RECORDS SUMMARY | 2024-06-15 13:13 | XMS_ITS | Encounter Summary ---
Author Organization [employer] Address 75 [facility] 7t [place] [address] Care Team Providers Care Toll Operator Name Role Phone Pascual Daly MD Primary Care Provide r Fani Heck PharmD Unavailable [phone] Reason for Visit * Reason Comments Med Refill Encounter Details Date Type Department Care Team (Late Contact Info) Description 12/28/2022 Refill [facility] MEDICINE 230 [place] [address] Titi Gray FNP Major depressive disorder with [...] Description 07/22/2024 10:30 AM EDT Clinical Support [facility] CHC MED & PEDS 505 [place], [place] [phone] Amanda Fernández, AALIYAH 505 [place] [address] 08/03/2024 10:00 AM EDT Office Visit [facility] MEDICINE 230 [place] [address] Pascual Daly MD [address] [place] [address] documented as of this encounter Goals Goal [...] documented as of this encounter Care Teams Toll Operator Relationship Specialty Start Date End Date Pascual Daly MD [address] [place] [address] PCP - General Internal Medicine 02/22/14 Fani Heck, PharmD [address] [place] [address] Pharmacist Internal Medicine 12/16/22 documented as of this encounter
--- OUTSIDE RECORDS SUMMARY | 2024-06-15 13:13 | XMS_ITS | Encounter Summary ---
Author Organization [employer] Address 75 [facility] 7t [place] [address] Care Team Providers Care Liquified Natural Gas Technician Name Role Phone Pascual Daly MD Primary Care Provide r Fani Heck PharmD Unavailable [phone] Encounter Details Date Type Department Care Team ([facility] st Contact Info) Description 09/25/2023 Telephone [facility] MEDICINE 230 [place] [address] Pascual Daly MD 230 [place] [address] Social History Tobacco Use Types Packs/Day Years [...] Description 07/22/2024 10:30 AM EDT Clinical Support [facility] CHC MED & PEDS 505 [place] [address] Amanda Fernández, RN 505 [place] [address] 08/03/2024 10:00 AM EDT Office Visit [facility] MEDICINE 230 [place] [address] Pascual Daly MD [address] [place] [address] documented as of this encounter Goals Goal [...] documented as of this encounter Care Teams Liquified Natural Gas Technician Relationship Specialty Start Date End Date Pascual Daly MD [address] [place] [address] PCP - General Internal Medicine 11/4/14 Fani Heck, KristiD [address] [place] [address] Pharmacist Internal Medicine 12/16/22 documented as of this encounter
--- OUTSIDE RECORDS SUMMARY | 2024-06-15 13:13 | XMS_ITS | Encounter Summary ---
Author Organization [employer] Address [address] [facility] 7t [place] [address] Care Team Providers Care Vacuum Cleaner Mechanic Name Role Phone Pascual Daly MD Primary Care Provide r Fani Heck PharmD Unavailable [phone] Reason for Visit * Reason Onset Date Comments Med Refill 10/11/2022 Encounter Details Date Type Department Care Team ([facility] st Contact Info) Description 10/11/2022 Telephone [facility] MEDICINE 230 [place] [address] Pascual Daly MD 230 [place], [place] [phone] Med Refill Social History Tobacco Use Types [...] 10:30 AM EDT Clinical Support [facility] MED & PEDS 505 [place] [address] Amanda Fernández, RN 505 [place] [address] 08/03/2024 10:00 AM EDT Office Visit [facility] MEDICINE 230 [place] [address] Pascual Dlay MD 230 [place] [address] documented as of this encounter Goals Goal [...] documented as of this encounter Care Teams Vacuum Cleaner Mechanic Relationship Specialty Start Date End Date Pascual Daly MD 230 [place] [address] PCP - General Internal Medicine 02/22/14 Fani Heck, PharmD [address] [place] [address] Pharmacist Internal Medicine 12/16/22 documented as of this encounter
--- OUTSIDE RECORDS SUMMARY | 2024-06-15 13:13 | XMS_ITS | Encounter Summary ---
Author Organization [employer] Address 75 [facility] 7t [place] [address] Care Team Providers Care Box Toe Flanger Stitchdowns Name Role Phone Pascual Daly MD Primary Care Provide r Fani Heck PharmD Unavailable [phone] Reason for Visit * Reason Onset Date Comments Med Refill 01/13/2024 Encounter Details Date Type Department Care Team ([facility] st Contact Info) Description 01/13/2024 Telephone [facility] MEDICINE 230 [place] [address] Pascual Daly MD [address] [place] [address] Med Refill Social History Tobacco Use Types [...] immediate release tablet To be sent to: [facility] - [place], [place] - [address] [place] [address] documented in this encounter Plan of Treatment Upcoming Encounters Date Type Department Care Team ([facility] st Contact Info) Description 07/22/2024 10:30 AM EDT Clinical Support [facility] MED & PEDS 505 [place] [address] Amanda Fernández RN 505 [place] [address] 08/03/2024 10:00 AM EDT Office Visit [facility] MEDICINE [address] [place] [address] Pascual Daly MD [address] [place] [address] documented as of this encounter Goals Goal [...] as of this encounter Care Teams Box Toe Flanger Stitchdowns Relationship Specialty Start Date End Date Pascual Daly MD [address] [place] [address] PCP - General Internal Medicine 02/22/14 Fani Heck, PharmD [address] [place] [address] Pharmacist Internal Medicine 12/16/22 documented as of this encounter
--- OUTSIDE RECORDS SUMMARY | 2024-06-15 13:13 | XMS_ITS | Clinical Summary ---
Author Organization [employer] Address 75 [facility] 7t [place] [address] Care Team Providers Care Restaurant And Bar Manager Name Role Phone Pascual Daly MD Primary Care Provide r Fani Heck PharmD Unavailable [phone] Allergies Active Allergy Reactions Criticality Noted Date [...] of insulin ([facility]) TAKE 1 TABLET BY MOUTH [...] (10/21/2023 10:15 AM EDT): Patient admitted to [facility] 09/09/23 after she presented to [place] emergency room due to left-sided chest discomfort as per patient she was visiting family in [place], on August 26 she turned in high [...] (08/27/2022 10:19 AM EDT): followed by a pharmacy district manager. 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 - Follow-up in [facility] in November. Repeat BMP and A1c prior [...] the care of Endocrinology office Vashti Glass INTEGRITY DIRECTOR, last seen 03/17/2024 and follows with RN [...] f/u She is under the care of Rv Repair Technician Dr Sprague, last seen 12/31/2023 On a [...] f/u She is under the care of Rv Repair Technician Dr Sprague, last seen 10/16/2023 On a [...] f/u She is under the care of Rv Repair Technician Dr Sprague, has a follow up with [...] f/u She is under the care of Rv Repair Technician Dr Sprague, has a follow up at [...] was referred to Dr. Manjinder Gonsales at [facility] as her medical insurance recommended this [...] factors. LDL-C is now calculated using the [facility] calculation, which is a validated novel method providing better accuracy than the Friedewald equation in the estimation of LDL-C. Melquiades WALLACE et al. TEN. 2013;310(27): 7930-1827 (http://education.Hippflow/faq/WXZ889) Chol/HDLC Ratio <5.0 (calc) 4.2 3.7 2.5 [...] DEPARTMENT Provider, Generic External Data 06/10/2024 Refill [facility] [address], [place] [address] Pascual Daly MD Fibromyalgia 06/04/2024 Orders Only GENERIC EXTERNAL DATA DEPARTMENT Provider, Generic External Data 05/31/2024 Refill [facility] [address], [place] [address] Nikia Jeter MD Type 2 diabetes mellitus without complication, with long-term current use of insulin ([facility]); Benign hypertension 05/24/2024 Refill [facility] [address], [place] [address] Pascual Daly MD Benign hypertension 05/18/2024 Orders Only GENERIC EXTERNAL DATA DEPARTMENT Provider, Generic External Data 05/13/2024 Telephone [facility] [address], [place] [address] Pascual Daly MD Med Refill 05/13/2024 Refill [facility] [address], [place] [address] Pascual Daly MD Fibromyalgia 05/05/2024 11:30 AM EST Office Visit [facility] [address], [place] [address] Ammy Owen, DDS Aphthous ulcer (Primary Dx) 05/04/2024 10:15 AM EST Office Visit [facility] [address], [place] [address] Pascual Daly MD Type 2 diabetes mellitus without complication, with long-term current use of insulin ([facility]) (Primary Dx); Primary hypertension; Mixed hyperlipidemia; Recurrent falls 05/04/2024 Travel 04/27/2024 9:30 AM EST Clinical Support [facility] [address] [place] [address] Amanda Fernández RN Closed fracture of multiple ribs of left side with routine healing 04/27/2024 Travel 04/22/2024 Refill [facility] [address] [place] [address] Pascual Daly MD Mild intermittent asthma without complication 04/19/2024 Telephone [facility] [address] [place] [address] Pascual Daly MD Chart Prep 04/08/2024 Refill [facility] [address] [place] [address] Pascual Daly MD Fibromyalgia 03/17/2024 Orders Only GENERIC EXTERNAL DATA DEPARTMENT Provider, Generic External Data 03/16/2024 Refill [facility] [address] [place] [address] Amanda Fernández RN Fibromyalgia 03/15/2024 Refill [facility] [address] [place] [address] Amanda Fernández, AALIYAH Fibromyalgia from Last 3 [...] Description 07/22/2024 10:30 AM EDT Clinical Support [facility] [address] [place] [address] Amanda Fernández, AALIYAH [address] [place] [address] 08/03/2024 10:00 AM EDT Office Visit [facility] [address] [place] [address] Pascual Daly MD [address] [place] [address] Health Maintenance Due Date Last Done Comments [...] of insulin ([facility]) POCT GLYCATED HEMOGLOBIN, TOTAL Routine 05/04/2024 10:16 AM EST Type 2 diabetes mellitus without complication, with long-term current use of insulin ([facility]) POCT HEATHER-14 URINE DRUG SCREEN [...] Relevant to Health Maintenance Results * (ABNORMAL) PTH, Intact Without Calcium (06/15/2024 11:09 AM EST) Parathyroid Hormone, Intact 101.8(H) 8.7 - 77.1 pg/mL [facility] 06/15/2024 11:0 9 AM EST 06/15/2024 11:13 AM EST us Generic External Data Provider LAB BLOOD ORDERAB LES Final Result Performing Organization Address [facility] Co de Phone Number [facility] [address] [place] [phone] * Glucose, Whole Blood (06/15/2024 10:16 AM EST) Only the most recent of4 resultswithin the time period is included. Glucose, Whole Blood 105 60 - 115 mg/dL [facility] Comment:METER #: [id number] Testing performed in the Endocrinology Department [address] , [address], [facility]. 06/15/2024 10:1 6 AM EST 06/15/2024 10:21 AM EST us Generic External Data Provider LAB BLOOD ORDERAB LES Final Result Performing Organization Address [facility]/ZIP Co de Phone Number [facility] [address] [place] [address] [phone] * (ABNORMAL) POCT HGB A1C (05/04/2024 10:16 AM EST) Pathologist [facility] Hemoglobin A1C 8.9(A) 4.0 - 6.0 % QC Media Lot # [id number] Lot# Expiration Date Blood 05/04/2024 10:1 6 AM EST Pascual Terry MD POINT OF CARE TEST ENTER/EDIT ORDERABLES Edited Result - Final * (ABNORMAL) POCT Glucose (05/04/2024 10:16 AM EST) [facility] Glucose Blood, POC 270(A) 60 - 200 mg/dL QC Media Lot # [id number] Lot# Expiration Date Blood Capillary blood specimen / Unknown 05/04/2024 10:16 AM EST Pascual Terry MD POINT OF CARE TEST EN TER/EDIT ORDERABLES Final Result * POCT HEATHER-14 Urine Drug Screen (04/27/2024 9:44 AM EST) [facility] Oxycodone Screen, Urine Positive Urine Urine specimen obtained by clean catch procedure / Unknown 04/27/2024 9:44 AM EST Narrative Amanda Fernández RN - 04/27/2024 9:44 AM EST Lot# [id number] Exp: 03-27-25 Pascual Terry MD POINT OF CARE TEST EN TER/EDIT ORDERABLES Final Result * (ABNORMAL) Lipid Panel, Standard (10/31/2023 10:42 AM EDT) Pathologist [facility] Triglycerides 74 <150 mg/dL [facility] Comment:Desirable Triglyceri de: less than 150 mg/dLBorderline High Triglyceride 150-199 mg/dLHigh Triglyceride: 200-499 mg/dLVery High Triglyceride: greater than or equal to 5OO mg/dL Cholesterol 95 <200 mg/dL [facility] Comment:Desirable Cholestero l: less than 200 mg/dLBorderline High Cholesterol: 200-239 mg/dLHigh Cholesterol: greater than 239 mg/dL LDL Cholesterol Calculated 43 <100 mg/dL [facility] Comment:Desirable LDL: less than 100 mg/dLNear Optimal/Above Optimal LDL: 110- 129 mg/dLBorderline High LDL: 130-159 mg/dLHigh LDL: 160-189 mg/dLVery High LDL: greater than or equal to 190 mg/dL HDL Cholesterol 38(L) >40 mg/dL [facility] Comment:Desirable HDL: great er than 40 mg/dL Note: This HDL assay may give artificially low results in patients with liver disease. 10/31/2023 10:4 2 AM EDT 10/31/2023 10:42 AM EDT us Generic External Data Provider LAB BLOOD ORDERAB LES Final Result Performing Organization Address [facility] Co de Phone Number [facility] [address] [place] [phone] * (ABNORMAL) Albumin, Random Urine W/Creatinine (07/02/2023 10:06 AM EDT) Creatinine, Urine 163.81 mg/dL [facility] Microalbumin Urine 59.0 mg/L [facility] Microalbum Creatinine Ratio Ur 36.0(H) <30 ug/mg cr [facility] Comment:Albumin/Creatinine R atio Reference Ranges: Normal: < 30 ug/mg creatinine Microalbuminuria: 30 - 300 ug/mg creatinineClinical Albuminuria: > 300 ug/mg creatinine 07/02/2023 10:0 6 AM EDT 07/02/2023 11:41 AM EDT us Generic External Data Provider LAB URINE ORDERAB LES Final Result Performing Organization Address [facility]/ZIP Co de Phone Number [facility] [address] [place] [phone] * BI Mammogram Screening Tomosynthesis Bilateral (06/05/2023 11:00 AM EST) Anatomical Region Laterality Modality Breast Bilateral Mammography 06/05/2023 11:0 0 AM EST Narrative 07/01/2023 11:45 AM EDT ? [facility] [place] ? [address] ?[place] [address] ? Mammography Report ? Signed ? Patient: Max,Brandie ?MR#: [id number] ? : 1950 ?Acct:[id number] ? Age/Sex: 73 / F ?ADM Date: 06/05/23 ? Loc: HO.MAMMO ? Attending Dr: Mohamed Talaat MD ? Ordering Physician: Talaat,Mohamed MD ?Results: 1Negat ?? juaquin ? Date of Service: 06/05/23 ?Follow Up: 1 Year From Orig ?? inal Mammogram ? Procedure(s): MM tomosynthesis screening BI ?? Accession Number(s): [id number] ? cc: Pascual Darnell MD; Briseida Rocha [...] 1141 ? DD/ 1100 ? TD/TT: ? Patient Escort: ? Procedure Note Silvestre, Image - 07/01/2023 [facility] [address] [place] [address] Mammography Report Signed Patient: Dino Santana#: [id number] : 1950Acct:[id number] Age/Sex: 73 / FADM Date: 06/05/23 Loc: [facility] Attending Dr: Briseida Rocha MD Ordering Physician: Briseida Rochaesults: 1Negat juaquin Date of Service: 06/05/23Follow Up: 1 Year From Orig inal Mammogram Procedure(s): MM tomosynthesis screening BI Accession Number(s): [id number] cc: Pascual Darnell MD; Briseida Rocha MD [...] in OV> 07/01/23 1141 DD/ 1100 TD/TT: Patient Escort: [facility] External Provider IMG BI PROCEDURES Final Result * Hepatitis C Viral RNA, Genotype, LiPA (01/15/2023 11:08 AM EDT) Hepatitis C Genotype Not Detected [facility] Comment: Genotype not detected due [...] characteristics of thisassay have been determined by [facility], [place], [place]. ??The modificationshave not been cleared or approved by the FDA. ??Thisassay has been validated pursuant to the CLIAregulations and is used for clinical purposes.For additional information, please refer tohttp://education.Motomotives.Service2Media/faq/HCVGenotyping(This link is being provided for informational/educational purposes only.)THIS TEST WAS PERFORMED AT:[id number] [place] [address]KTTOIYIJOHN CORDON MD,PHD 01/15/2023 11:0 8 AM EDT 01/15/2023 11:08 AM EDT [facility] External Provider LAB BLO OD ORDERABLES Final Result [facility] [address] [place] [phone] * Colonoscopy (03/20/2018) Colonoscopy Normal Normal 03/20/2018 Narrative Sondra Rowe - 03/20/2018 9:09 AM EST Recommended 10 year follow up Historical Provider HEALTH MAINTENANCE Edited Result - Final from Last 3 Months or Most Recently Relevant to Health Maintenance Insurance [facility] Care Teams Restaurant And Bar Manager Relationship Specialty Start Date End Date Pascual Daly MD [address] [place] [address] PCP - General Internal Medicine 02/22/14 Fani Heck PharmD [address] [place] [address] Pharmacist Internal Medicine 12/16/22
--- OUTSIDE RECORDS SUMMARY | 2024-06-15 13:13 | XMS_ITS | Encounter Summary ---
Author Organization [employer] Address [address] [facility] 7t [place] [address] Care Team Providers Care Retail Agent Name Role Phone Pascual Daly MD Primary Care Provide r Fani Heck PharmD Unavailable [phone] Reason for Visit * Reason Comments Med Refill Encounter Details Date Type Department Care Team (Late st Contact Info) Description 03/04/2023 Refill [facility] [address] [place] [address] Pascual Daly MD [address] [place], [place] [phone] Type 2 diabetes mellitus without complication, with long-term current use of insulin ([facility]) Social History Tobacco Use Types Packs/Day Years [...] 07/22/2024 10:30 AM EDT Clinical Support [facility] [address] [place] [address] Amanda Fernández, AALIYAH [address] [place] [address] 08/03/2024 10:00 AM EDT Office Visit [facility] [address] [place] [address] Pascual Daly MD [address] [place] [address] documented as of this encounter Goals Goal Patient Goal Type Associated Problems Recent Progress Patient-Stated? Author Blood Pressure < 140/90 Blood Pressure 133/70( 025 11:28 AM EST) No Fani Heck, KristiD documented as of this encounter Visit Diagnoses Diagnosis Type 2 diabetes mellitus without complication, with long-term current use of insulin ([facility]) documented in this encounter Additional Health Concerns Assessment Noted Time PHQ-9 Depression Total Score: 9 02/25/20 23 11:02 AM EST documented as of this encounter Care Teams Retail Agent Relationship Specialty Start Date End Date Pascual Daly MD [address] [place] [address] PCP - General Internal Medicine 02/22/14 Fani Heck, KristiD [address] [place] [address] Pharmacist Internal Medicine 12/16/22 documented as of this encounter
--- OUTSIDE RECORDS SUMMARY | 2024-06-15 13:13 | XMS_ITS | Encounter Summary ---
Author Organization [employer] Address [address] [facility] [address] 7[address] [place] [address] Care Team Providers Care File Keeper Name Role Phone Pascual Daly MD Primary Care Provide r Fani Heck PharmD Unavailable [phone] Encounter Details Date Type Department Care Team (Late st Contact Info) Description 03/05/2024 Refill [facility] [address] [place] [address] Jefry Chun Benign hypertension; Type 2 diabetes mellitus without complication, with long-term current use of insulin ([facility]) Social History Tobacco Use Types Packs/Day [...] [facility] [address] [place] [address] Amanda Fernández RN [address] [place] [address] 08/03/2024 10:00 AM EDT Office Visit [facility] [address] [place] [address] Pascual Daly MD [address] [place] [phone] documented as of this encounter Goals Goal Patient Goal Type Associated Problems Recent Progress Patient-Stated? Author Blood Pressure < 140/90 Blood Pressure 133/70( 025 11:28 AM EST) No Fani Heck, PharmD documented as of this encounter Visit Diagnoses Diagnosis Benign hypertension Essential hypertension, benign Type 2 diabetes mellitus without complication, with long-term current use of insulin ([facility]) documented in this encounter Additional Health Concerns Assessment Noted Time PHQ-9 Depression Total Score: 9 01/29/20 24 11:00 AM EDT documented as of this encounter Care Teams File Keeper Relationship Specialty Start Date End Date Pascual Daly MD [address] [place] [phone] PCP - General Internal Medicine 02/22/14 Fani Heck, KristiD [address] [place] [phone] Pharmacist Internal Medicine 12/16/22 documented as of this encounter
--- OUTSIDE RECORDS SUMMARY | 2024-06-15 13:14 | XMS_ITS | Encounter Summary ---
Author Organization [employer] Address [address] [facility] 7t [place] [address] Care Team Providers Care Pruner Name Role Phone Pascual Daly MD Primary Care Provide r Fani Heck PharmD Unavailable [phone] Encounter Details Date Type Department Care Team [...] Description 07/22/2024 10:30 AM EDT Clinical Support [facility] [address] [place], [place] [phone] Amanda Fernández, AALIYAH [address] [place] [address] 08/03/2024 10:00 AM EDT Office Visit [facility] [address] [place] [address] Pascual Daly MD [address] [place] [address] documented as of this encounter Goals Goal Patient Goal Type Associated Problems Recent Progress Patient-Stated? Author Blood Pressure < 140/90 Blood Pressure 133/70( 025 11:28 AM EST) No Fani Hekc, KristiD documented as of this encounter Procedures Procedure Name Priority Date/Time Associated Diagnosis Comments GLUCOSE, WHOLE BLOOD Routine 06/04/2024 11:14 AM EST documented in this encounter Results * (ABNORMAL) Glucose, Whole Blood (06/04/2024 11:14 AM EST) Glucose, Whole Blood 121(H) 60 - 115 mg/dL [facility] Comment:METER #: [id number] 5Testing performed in the Endocrinology Department [address] , [address], [facility]. 06/04/2024 11:1 4 AM EST 06/04/2024 11:19 AM EST us Generic External Data Provider LAB BLOOD ORDERAB LES Final Result [facility] [address] [place] [address] [phone] documented in this encounter Visit Diagnoses Not on filedocumented in this encounter Additional Health Concerns Assessment Noted Time PHQ-9 Depression Total Score: 9 01/29/20 24 11:00 AM EDT documented as of this encounter Care Teams Pruner Relationship Specialty Start Date End Date Pascual Daly MD [address] [place] [address] PCP - General Internal Medicine 02/22/14 Fani Heck PharmD [address] [place] [address] Pharmacist Internal Medicine 12/16/22 documented as of this encounter
--- OUTSIDE RECORDS SUMMARY | 2024-06-15 13:14 | XMS_ITS | Encounter Summary ---
Author Organization [employer] Address 75 [facility] 7t [place] [address] Care Team Providers Care Ammonia Still Operator Name Role Phone Pascual Daly MD Primary Care Provide r Fani Heck PharmD Unavailable [phone] Encounter Details Date Type Department Care Team (Late st Contact Info) Description 03/11/2022 Abstract [facility] [address] [place] [phone] Pascual Daly MD [address] [place] [address] Social History Tobacco Use Types Packs/Day Years [...] 10:30 AM EDT Clinical Support [facility] [address] [place], [place] [phone] Amanda Fernández, AALIYAH [address] [place] [address] 08/03/2024 10:00 AM EDT Office Visit [facility] [address] [place] [address] Pascual Daly MD [address] [place] [address] documented as of this encounter Visit Diagnoses Not on filedocumented in this encounter Care Teams Ammonia Still Operator Relationship Specialty Start Date End Date Pascual Daly MD [address] [place] [phone] PCP - General Internal Medicine 02/22/14 Fani Heck PharmD [address] [place] [phone] Pharmacist Internal Medicine 12/16/22 documented as of this encounter
--- OUTSIDE RECORDS SUMMARY | 2024-06-15 13:14 | XMS_ITS | Encounter Summary ---
Author Organization [employer] Address [address] [facility] 7t [place] [address] Care Team Providers Care Print Line Operator Name Role Phone Pascual Daly MD Primary Care Provide r Fani Heck PharmD Unavailable [phone] Reason for Visit * Reason Onset Date Comments Med Refill 12/15/2023 Encounter Details Date Type Department Care Team ([facility] st Contact Info) Description 12/15/2023 Telephone [facility] [address] [place] [address] Pascual Daly MD [address] [place] [address] Med Refill Social History Tobacco Use Types [...] immediate release tablet To be sent to: [facility] [place], [place] - [address] [place] [address] documented in this encounter Plan of Treatment Upcoming Encounters Date Type Department Care Team ([facility] st Contact Info) Description 07/22/2024 10:30 AM EDT Clinical Support [facility] [address] [place] [address] Amanda Fernández RN [address] [place] [address] 08/03/2024 10:00 AM EDT Office Visit [facility] [address] [place] [address] Pascual Daly MD [address] [place] [address] documented as of this encounter Goals Goal [...] documented as of this encounter Care Teams Print Line Operator Relationship Specialty Start Date End Date Pascual Daly MD [address] [place] [address] PCP - General Internal Medicine 02/22/14 Fani Heck, PharmD [address] [place] [address] Pharmacist Internal Medicine 12/16/22 documented as of this encounter
--- OUTSIDE RECORDS SUMMARY | 2024-06-15 13:14 | XMS_ITS | Encounter Summary ---
Author Organization [employer] Address [address] [facility] 7t [place] [address] Care Team Providers Care Band Saw Marker Name Role Phone Pascual Daly MD Primary Care Provide r Fani Heck PharmD Unavailable [phone] Reason for Visit * Reason Onset Date Comments FYI 11/06/2023 Encounter Details Date Type Department Care Team ([facility] st Contact Info) Description 11/06/2023 Telephone [facility] [address] [place] [address] Pascual Daly MD [address] [place] [address] FYI Social History Tobacco Use Types Packs/Day [...] - 11/06/2023 4:39 PM EDT Tc from [facility]ORDER[facility] PT informing pt has started services For PT 11/06/23 documented in this encounter Plan of Treatment Upcoming Encounters Date Type Department Care Team (Late st Contact Info) Description 07/22/2024 10:30 AM EDT Clinical Support [facility] [address] [place] [address] Amanda Fernández RN [address] [place] [address] 08/03/2024 10:00 AM EDT Office Visit [facility] [address] [place] [address] Pascual Daly MD [address] [place] [address] documented as of this encounter Goals Goal [...] documented as of this encounter Care Teams Band Saw Marker Relationship Specialty Start Date End Date Pascual Daly MD [address] [place] [address] PCP - General Internal Medicine 02/22/14 Fani Heck, PharmD [address] [place] [address] Pharmacist Internal Medicine 12/16/22 documented as of this encounter
--- OUTSIDE RECORDS SUMMARY | 2024-06-15 13:14 | XMS_ITS | Encounter Summary ---
Author Organization [employer] Address [address] [facility] 7t [place] [address] Care Team Providers Care Stemming Machine Operator Name Role Phone Pascual Daly MD Primary Care Provide r Fani Heck PharmD Unavailable [phone] Encounter Details Date Type Department Care Team [...] AM EDT Clinical Support [facility] MED & PEDS [address] [place], [place] [phone] Amanda Fernández, AALIYAH [address] [place] [address] 08/03/2024 10:00 AM EDT Office Visit [facility] MEDICINE [address] [place] [address] Pascual Daly MD [address] [place] [address] documented as of this encounter Goals Goal [...] Whole Blood 260(H) 60 - 115 mg/dL [facility] Comment:METER #: [id number] Testing performed in the Endocrinology Department [address] , [address], [facility]. 05/18/2024 10:1 7 AM EST 05/18/2024 10:22 AM EST us Generic External Data Provider LAB BLOOD ORDERAB LES Final Result [facility] [address] [place] [address] [phone] documented in this encounter Visit Diagnoses Not on filedocumented in this encounter Additional Health Concerns Assessment Noted Time PHQ-9 Depression Total Score: 9 01/29/20 24 11:00 AM EDT documented as of this encounter Care Teams Stemming Machine Operator Relationship Specialty Start Date End Date Pascual Daly MD [address] [place] [address] PCP - General Internal Medicine 02/22/14 Fani Heck PharmD [address] [place] [address] Pharmacist Internal Medicine 12/16/22 documented as of this encounter
--- OUTSIDE RECORDS SUMMARY | 2024-06-15 13:14 | XMS_ITS | Encounter Summary ---
Author Organization [employer] Address [address] [facility] 7t [place] [address] Care Team Providers Care Manager Stars Name Role Phone Pascual Daly MD Primary Care Provide r Fani Heck PharmD Unavailable [phone] Reason for Visit * Reason Comments Med Refill Encounter Details Date Type Department Care Team (Late st Contact Info) Description 05/31/2024 Refill [facility] MEDICINE [address] [place] [address] Nikia Jeter MD [address] [place] [address] Type 2 diabetes mellitus without complication, with long-term current use of insulin ([facility]); Benign hypertension Social History Tobacco [...] [facility]S [address] [place] [address] Amanda Fernández, AALIYAH [address] [place] [address] 08/03/2024 10:00 AM EDT Office Visit [facility] MEDICINE [address] [place] [address] Pascual Daly MD [address] [place] [address] documented as of this encounter Goals Goal Patient Goal Type Associated Problems Recent Progress Patient-Stated? Author Blood Pressure < 140/90 Blood Pressure 133/70( 025 11:28 AM EST) No Fani Heck, KristiD documented as of this encounter Visit Diagnoses Diagnosis Type 2 diabetes mellitus without complication, with long-term current use of insulin ([facility]) Benign hypertension Essential hypertension, benign documented in this encounter Additional Health Concerns Assessment Noted Time PHQ-9 Depression Total Score: 9 01/29/20 24 11:00 AM EDT documented as of this encounter Care Teams Manager Stars Relationship Specialty Start Date End Date Farfan Harrison, Pascual, MD [address] [place] [address] PCP - General Internal Medicine 02/22/14 Fani Heck PharmD [address] [place] [address] Pharmacist Internal Medicine 12/16/22 documented as of this encounter
--- OUTSIDE RECORDS SUMMARY | 2024-06-15 13:14 | XMS_ITS | Encounter Summary ---
Author Organization [employer] Address [address] [facility] 7t [place] [address] Care Team Providers Care Garbage Truck Driver Name Role Phone Pascual Daly MD Primary Care Provide r Fani Heck PharmD Unavailable [phone] Encounter Details Date Type Department Care Team (Late st Contact Info) Description 03/13/2022 Abstract [facility] MEDICINE [address] [place] [phone] ProviderBill MD Social History Tobacco Use Types [...] [facility]EDS [address] [place] [address] Amanda Fernández, AALIYAH [address] [place] [address] 08/03/2024 10:00 AM EDT Office Visit [facility] MEDICINE [address] [place] [address] Pascual Daly MD [address] [place], [place] [phone] documented as of this encounter Visit Diagnoses Not on filedocumented in this encounter Care Teams Garbage Truck Driver Relationship Specialty Start Date End Date Pascual Daly MD [address] [place] [address] PCP - General Internal Medicine 02/22/14 Fani Heck PharmD [address] [place] [phone] Pharmacist Internal Medicine 12/16/22 documented as of this encounter
--- OUTSIDE RECORDS SUMMARY | 2024-06-15 13:14 | XMS_ITS | Encounter Summary ---
Author Organization [employer] Address [address] [facility] 7t [place] [address] Care Team Providers Care Injection Press Operator Name Role Phone Pascual Daly MD Primary Care Provide r Fani Heck PharmD Unavailable [phone] Reason for Visit * Reason Comments Med Refill Encounter Details Date Type Department Care Team (Late st Contact Info) Description 05/24/2024 Refill [facility] MEDICINE [address] [place] [address] Pascual Daly MD [address] [place], [place] [phone] Benign hypertension Social History Tobacco Use Types [...] Description 07/22/2024 10:30 AM EDT Clinical Support [facility] CHC MED & PEDS [address] [place] [address] Amanda Fernández, AALIYAH [address] [place] [address] 08/03/2024 10:00 AM EDT Office Visit [facility] MEDICINE [address] [place] [address] Pascual Daly MD [address] [place] [phone] documented as of this encounter Goals Goal [...] documented as of this encounter Care Teams Injection Press Operator Relationship Specialty Start Date End Date Pascual Daly MD [address] [place] [phone] PCP - General Internal Medicine 02/22/14 Fani Heck, KristiD [address] [place] [phone] Pharmacist Internal Medicine 12/16/22 documented as of this encounter
--- OUTSIDE RECORDS SUMMARY | 2024-06-15 13:14 | XMS_ITS | Encounter Summary ---
Author Organization [employer] Address [address] [facility] 7t [place] [address] Care Team Providers Care General Office Associate Name Role Phone Pascual Daly MD Primary Care Provide r Fani Heck PharmD Unavailable [phone] Encounter Details Date Type Department Care Team (Latest Contact Info) Description 05/26/2019 Abstract [facility] CONVERSIONS Dental, Provider, DDS Social History [...] [facility] MED [facility] PEDS [address] [place] [address] Amanda Fernández, AALIYAH [address] [place] [address] 08/03/2024 10:00 AM EDT Office Visit [facility] MEDICINE [address] [place], [place] [phone] Pascual Daly MD [address] [place] [address] documented as of this encounter Visit Diagnoses Not on filedocumented in this encounter Care Teams General Office Associate Relationship Specialty Start Date End Date Pascual Daly MD [address] [place] [address] PCP - General Internal Medicine 02/22/14 Fani Heck, Woody [address] [place] [address] Pharmacist Internal Medicine 12/16/22 documented as of this encounter
--- OUTSIDE RECORDS SUMMARY | 2024-06-15 13:14 | XMS_ITS | Encounter Summary ---
Author Organization [employer] Address [address] [facility] 7t [place] [address] Care Team Providers Care Outreach Analyst Name Role Phone Pascual Daly MD Primary Care Provide r Fani Heck PharmD Unavailable [phone] Encounter Details Date Type Department Care Team (Late st Contact Info) Description 03/11/[address] [facility] MEDICINE [address] [place] [phone] Fani Heck, PharmD [address] [place] [address] Social History Tobacco Use Types Packs/Day Years [...] AM EDT Clinical Support [facility] CHC MED & PEDS [address] [place] [address] Amanda Fernández, AALIYAH [address] [place] [address] 08/03/2024 10:00 AM EDT Office Visit [facility] MEDICINE [address] [place] [address] Pascual Daly MD [address] [place] [phone] documented as of this encounter Visit Diagnoses Not on filedocumented in this encounter Care Teams Outreach Analyst Relationship Specialty Start Date End Date Pascual Daly MD [address] [place] [phone] PCP - General Internal Medicine 02/22/14 Fani Heck, KristiD [address] [place] [phone] Pharmacist Internal Medicine 12/16/22 documented as of this encounter
[2024-06-15 13:27] LABS: Free T4 (Free Thyroxine) 0.96 ng/dL (0.71-1.85)
[2024-06-16 17:23] LABS: Calcium, Ionized 5.3 mg/dL (4.7-5.5)
[2024-06-18 16:38] LABS: TS Negative Control Passed; TS Panel A 0; TS Panel B 0; TS Positive Control Passed; TSpotTB Negative (Negative)
[2024-06-19 17:33] LABS: Alkaline Phosphatase Bone 13.2 mcg/L (5.6-29.0)
== END 2024-06-15 10:07 | disposition home or self-care (01) ==
LOC: HO.LAB 10:06
PROVIDERS: Nurse Practitioner Adult Health; Absent Provider Student in an Organized Health Care Education/Training Program; PCP Internal Medicine; Visit Provider Internal Medicine Endocrinology, Diabetes & Metabolism
DX: Z51.81 Encounter for therapeutic drug level monitoring (principal); Z79.620 Long term (current) use of immunosuppressive biologic; M81.0 Age-related osteoporosis without current pathological fracture; E10.649 Type 1 diabetes mellitus with hypoglycemia without coma; R79.89 Other specified abnormal findings of blood chemistry; E10.65 Type 1 diabetes mellitus with hyperglycemia; E03.9 Hypothyroidism, unspecified; E21.1 Secondary hyperparathyroidism, not elsewhere classified; Z79.4 Long term (current) use of insulin
CPT/HCPCS: 36415; 80053; 80061; 82040; 82306; 82310; 82330; 82947; 83970; 84075; 84100; 84439; 84443; 85025; 85652; 86140; 86481; 86704; 86706; 86709; 86803; 87340; 99212

== ENCOUNTER 2024-06-15 10:06 | Outpatient (AMB) | payer OTHER, SELFPAY ==
[2024-06-15 10:07] VITALS: BP 108/64; PULSE 64; O2SAT 91; BMI 30.5
--- NOTE | 2024-06-15 10:07 | MHC.OFFVIS ---
Vital Signs 06/15/24 10:07 Height 4 ft 11 in Weight 151 lb 0.266 oz BMI 30.5 BP 108/64 Blood Pressure Location Lt brachial Position Sitting Pulse 64 Pulse Source Pulse Oximeter Pulse Oximetry (%) 91 L Oxygen Delivery Method Room Air Intake Visit Reasons: [id number] Vashti Intake Note: Patient present today to follow up on Type 2 Diabetes Mellitus. Last Diabetic Eye exam: 02/2024 Last Podiatry Visit: Doesn't have one Random Glucose:105 mg/dl HgA1C: 8.6% 05/18/2024 Inspector Repairer Required: Yes Inspector Repairer Language: Livestock Nutrition Territory Manager Services: Inspector Repairer Present Inspector Repairer Name: Sara Information Interpreted: non-clinical & clinical Accompanied by: [employer]ICAL LABORATORY TE[employer]IANS Allergies lorazepam [LORAZEPAM] Allergy (Severe, Verified 06/15/24 10:14) DELIRIUM celecoxib [From Celebrex] Allergy (Intermediate, Verified 06/15/24 10:14) ITCHING tramadol [TRAMADOL] Allergy (Intermediate, Verified 06/15/24 10:14) ITCHING zolpidem [Ambien] Allergy (Unknown, Verified 06/15/24 10:14) unknown Medication List - Last Reconciled 06/15/24 by Chuy Sprague MD acetaminophen 650 mg (2 x 325 mg) PO Q6H PRN Actemra ACTPen (tocilizumab) 162 mg (0.9 mL) subcut Q2W NS albuterol sulfate 90 mcg/actuation 2 puffs inhalation Q4-6H PRN albuterol sulfate 2.5 mg (3 mL) inhalation Q3H PRN amlodipine 10 mg PO DAILY aripiprazole 20 mg PO DAILY atorvastatin 20 mg PO DAILY bisacodyl 10 mg (2 x 5 mg) PO BEDTIME blood sugar diagnostic (FreeStyle Lite Strips) TEST BLOOD SUGAR 8 TIMES EVERY DAY blood-glucose meter (FreeStyle Lite Meter kit) As directed calcium citrate 400 mg (2 x 200 mg (950 mg)) PO BID carvedilol 6.25 mg PO BID cholecalciferol (vitamin D3) (Vitamin D3) 50 mcg PO QAM clonazepam 1 tab PO Q8H PRN clopidogrel 75 mg PO QAM cyclobenzaprine 10 mg PO TID PRN esomeprazole magnesium 40 mg PO DAILY folic acid 1 mg PO DAILY gabapentin 100 mg PO BID glucagon 3 mg/actuation (Baqsimi) 3 mg intranasal ONCE PRN 30 days glucagon 3 mg/actuation (Baqsimi) 3 mg intranasal ONCE PRN 30 days hydroxyzine HCl 10 mg PO Q8H PRN insulin aspart (niacinamide) 100 unit/mL (3 mL) (Fiasp FlexTouch U-100 Insulin) 2 - 9 units subcut QID 30 days insulin syringe-needle U-100 (BD Insulin Syringe Ultra-Fine) As directed 3 times per day ipratropium-albuterol 0.5 mg-3 mg(2.5 mg base)/3 mL 3 mL inhalation RQ4H WHILE AWAKE 7 days levothyroxine 100 mcg PO DAILY 90 days linaclotide (Linzess) 290 mcg PO QAM losartan 100 mg PO DAILY melatonin 3 mg PO BEDTIME methocarbamol 500 mg PO DAILY nebulizers As directed nut.tx.gluc.intol,lac-free,soy (Glucerna oral liquid) 1 ea PO BID 28 days ondansetron 4 mg PO Q8H PRN oxycodone 5 mg PO Q4H PRN oxycodone ER (OxyContin) 10 mg PO BID pen needle, diabetic (Pentips Pen Needle) USE FIVE TIMES DAILY prazosin 6 mg PO BEDTIME semaglutide (weight loss) (Wegovy) 2.4 mg (0.75 mL) subcut Q7D 28 days Tresiba FlexTouch U-100 (insulin degludec) 20 units (0.2 mL) subcut DAILY 30 days NS venlafaxine ER (Effexor XR) 150 mg PO DAILY zinc gluconate 30 mg PO DAILY HPI Comments Details: Patient is a 74-year-old female with DM type 1 diagnosed at 40 years of age, initially thought to have type 2 diabetes, who presents for management of diabetes. .he does report a history of hypoglycemic coma in the past. She reports using her insulin prior to meals without fail. Her Dexcom sensor showed average blood glucose of 254 in only 17% within target range. She is using the sensor 71% of the time. 31% were high and 51 % very high with 0% low. Point cares remained elevated throughout the day without any spikes post meal She has been on Tirosint 100 mcg daily. She reports she does forget on occassion and will take 2 pills the next day. 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 Scalp folliculitis, fibromyalgia, microcytic anemia pernicious depression. Bariatric surgery 12/09/2016. [place] in past Micro and macrovascular complications: CAD Diabetes medications: Tresiba 18 units Fiasp 80-100 eat first and take 2 units 101-200 5 unit 201-250 6 units 251-300 7 units Over 300 9 unit Wegovy 2.4 mg Qwkly not taking Dexcom download shows he is using the sensor 85% of the time. Average glucose is 238 with G mi of 9.0. Coefficient of variation is 35.1%. 22% range with 36% hyperglycemia and 41% very hyperglycemic and 1% hypoglycemia. Pen shows persistent elevation of glucose throughout the day with slight peak after breakfast Symptoms reported: denies numbness, tingling, cramping in lower extremities Hypoglycemia: reports hypoglycemia 3 nights/wk Hyperglycemia: + urinary frequency, +nocturia, +polydypsia Does not take a snack before bedtime Exercise: denies Botany Professor - CDE education: in past Customer Relations Assistant: in past Ophthalmology evaluation: last visit last wk Other specialists: client business manager, neurologist, Dr. Tang Laboratory Tests 05/03/20 06/12/20 10/30/20 11:35 12:40 11:08 Creatinine Estimated GFR Hgb A1c (Clinic) LDL Cholesterol Direct LDL Cholesterol, Calc 37 25-OH Vitamin D Total 40.4 TSH TRISTAN Antibody >250 H 10/30/20 03/12/21 04/05/21 11:08 10:36 09:58 Creatinine 1.15 Estimated GFR 47 Hgb A1c (Clinic) LDL Cholesterol Direct 32 LDL Cholesterol, Calc 25-OH Vitamin D Total TSH 7.92 H TRISTAN Antibody 06/22/21 10:45 Creatinine Estimated GFR Hgb A1c (Clinic) 9.6 H LDL Cholesterol Direct LDL Cholesterol, Calc 25-OH Vitamin D Total TSH TRISTAN Antibody [facility] Medical History Hypoglycemia due to insulin Elevated parathyroid hormone Osteoporosis Hyperlipidemia (04/21/1959) Depressive disorder (04/21/1959) Nutritional anemia (04/21/1959) Shortness of breath Hypothyroidism (04/21/1959) Anemia Chronic gastritis Heart palpitations NSTEMI (non-ST elevated myocardial infarction) Recurrent falls (12/04/11) Iron deficiency anemia (04/21/1959) Fibromyositis (04/21/1959) Eczema (04/21/1959) High risk medication use Hepatitis C antibody positive in blood Screening for osteoporosis Screening for viral disease Joint swelling Overweight (BMI 25.0-29.9) Neck pain Swelling of knee joint, right Intra-abdominal abscess Diabetes Elevated liver function tests Intestinal malabsorption following gastrectomy Obesity (BMI 30-39.9) 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 Hypertension Cholecystitis Hyperlipidemia, unspecified Essential hypertension Atherosclerotic cardiovascular disease Fibromyalgia Folliculitis Anxiety Depression History of myocardial infarction Diabetes type 1, uncontrolled 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 Mother CVA (cerebral vascular accident) Sister Hypertension Brother Hypertension Liver cancer Social History Household Members: None Housing: Apartment Are you a primary career and guidance counselor to a significant other at home: No Do you presently have visiting nurse or other home services: Yes Unable to assess alcohol history related to: Unable to respond Alcohol intake: never Patient Tobacco Use Status: Never used Tobacco Advance Directives Date on File: 09/17/23 service: No Current occupational status: disabled Current occupation: right hand dominant Physical Exam Vital Signs: Last Vital Signs Pulse 64 06/15/24 10:07 BP 108/64 06/15/24 10:07 Pulse Ox 91 L 06/15/24 10:07 Oxygen Delivery Method Room Air 06/15/24 10:07 BMI result Body Mass Index 30.5 Absence of Cushingoid features. Absence of acromegalic features. Neck exam reveals nl size thyroid about 15 gms. No thyroid nodules palpable. No carotid bruits present. Lungs CTA. Heart S1 S2, Reg R/R. No M/R/ G. Skin exam reveals absence of vitiligo or acanthosis nigricans. Abdominal exam reveals Soft NT/ND with NA BS. No organomegaly present. Extrem Other: Visual exam of foot performed. No ulcerations or open lesions. No onchomycosis, no callouses.Pulses 2 + distally. Sensation intact to monofilament exam. Vibratory sensation sensed is decreased with the tuning fork Results Reviewed Results Reviewed: Laboratory Last Values Glucose (Clinic) 105 mg/dL (60-115) 06/15/24 10:16 Assessment & Plan Assessment & Plan (1) Diabetes type 1, uncontrolled: Code(s): E10.65 - Type 1 diabetes mellitus with hyperglycemia Category: Medical Qualifiers: Coma presence: without coma Glycemic state: with hypoglycemia Qualified Code(s): E10.649 - Type 1 diabetes mellitus with hypoglycemia without coma Plan: This is a 74-year-old female with history of type 1 diabetes being treated with basal-bolus insulin with poor glycemic control by HbA1c and known macrovascular complications namely CAD. There is significant hyperglycemia throughout the day with post-prandial spikes. Her glycemic control is limited by psychosocial limitations Plan is to increase the Tresiba slightly to 21 units. May need to increase the Tresiba even further but worry about hypoglycemia . Told pt to take snack consistently before bedtime Ideally, patient should learn how to carbohydrate count but this might be a bit challenging to this patient. . I do not think the patient would be capable of manipulation of a insulin pump although this would be ideal. (2) Hypothyroidism: Onset Date: 04/21/1959 Code(s): E03.9 - Hypothyroidism, unspecified Category: Medical Plan: On Tirosint 100 ug. Appears clinically euthyroid. Will check TSH and free T4 (orders placed by Vashti) and adjust Tirosint accordingly (3) Hyperparathyroidism due to vitamin D deficiency: Code(s): E21.1 - Secondary hyperparathyroidism, not elsewhere classified Category: Medical Plan: we will recheck calcium, albumin, PTH, 25 hydroxy vitamin-D ordered by Vashti Watts NPand adjust appropriately. Patient should follow up with client insights consultant. Would ideally like to get 24 hour urine for calcium and creatinine if patient is able to perform as may be calcium deficient as well Coding Level of Care Code Est Pt Level 4 (98026) Complex EM visit Add On G2211 Diagnoses Uncontrolled type 1 diabetes mellitus with hypoglycemia without coma E10.649 Coma presence: without coma Glycemic state: with hypoglycemia Hypothyroidism E03.9 Hyperparathyroidism due to vitamin D deficiency E21.1
[2024-06-15 10:22] LABS: Glucose, Whole Blood 105 mg/dL (60-115)
--- OUTSIDE RECORDS SUMMARY | 2024-06-15 11:45 | XMS_ITS | Encounter Summary ---
Author Organization [employer] Address [address] [place] [address] Care Team Providers Care Welfare Adviser Name Role Phone Pascual Daly MD Primary Care Provide r Fani Heck PharmD Unavailable [phone] Reason for Visit * Reason Comments Med Refill Encounter Details Date Type Department Care Team (Late st Contact Info) Description 08/26/2023 Refill [facility] WALK-IN CENTER [address] [place] [address] [phone] Momo Rizo MD [address] [place] [phone] Benign hypertension Social History Tobacco Use Types [...] EDT Clinical Support [facility] CHC MED & PEDS [address] [place] [address] Amanda Fernández, AALIYAH [address] [place] [address] 08/03/2024 10:00 AM EDT Office Visit [facility] MEDICINE [address] [place] [address] Pascual Daly MD [address] [place] [phone] documented as of this encounter Goals Goal [...] documented as of this encounter Care Teams Welfare Adviser Relationship Specialty Start Date End Date Pascual Daly MD [address] [place] [id number] PCP - General Internal Medicine 02/22/14 Fani Heck, KristiD [address] [place] [phone] Pharmacist Internal Medicine 12/16/22 documented as of this encounter
--- OUTSIDE RECORDS SUMMARY | 2024-06-15 11:45 | XMS_ITS | Data Portability ---
Author Organization [employer], [place] [employer] Address [address] [place] [phone] Care Team Providers Care Elevator Attendant Name Role Phone [facility] Referring Provider Assessment Encounter Date Assessment Date Assessment LastModified by Organization Details LastModified Time 04/11/2023 04/11/2023 I provided real -time medical direction via phone for this encounter, and was available for additional phone based assistance as needed. I have reviewed and agree with the Assessment and Plan as documented by the Manager Of Internal Audit. Patient given the opportunity to ask questions. Advised to call for another visit over the weekend if not improving in 2 to 3 days however if develops CP/severe SOB/turning blue/uncontrolle d n/v/d or black/bloody emesis or stool/ AMS/ syncope/ hi fever unresponsive to APAP to call 911- verbalized understanding of instructions [email or web address] Not available 04/12/2023 10:53:05 Plan of Treatment [...] Not available Not available Not available 04/11/2023 [id number] RxNorm Anitha Camacho MD [address] [facility],[address], [place], [address] [facility] jellyfish 3 14:49:47 [id number] Celebrex medicatio n Not available Not available Not available 04/11/2023 [id number] RxNoalex Camacho MD [address] [facility],[address], [place], [address], jellyfish 14:49:57 4128 tramadol medicatio n Not available Not available Not available 04/11/2023 [id number] RxGeovanny Camacho MD [address] [facility],[address], [place], [phone], Sina 14:50:04 Medications Name Sig Start Date Stop [...] Available Not Available No t Available FreeStyle [place] Lite kit USE DIRECTED active Not Available [...] Updated DateTime 3 97 % 97 % 13735.5 36 g 18 /min 97.8 [degF] 88 /min 167 mm[Hg] 84 mm[Hg] Not Available [facility] - production 3 14:49:26 Social History None recorded. Functional Status None recorded. Mental Status None recorded. Family History Nothing Reported. Medical History No medical history recorded. Gynecological HistoryNo gynecological history recorded. Obstetrics History GPAL:G 0 P 0 0 0 0 Past Encounters Encounter ID Performer Location Encounter Start Date Encounter Closed Date Diagnosis/Indication Diagnosis SNOMED-CT Code Diagnosis ICD10 Code Diagnosis Note [id number] Anitha Camacho MD Main - inst[facility] [address] [place] [phone] 04/11/2023 14:49:23 04/12/2023 10:53:58 Respiratory syncytial virus infection [id number] B97.4 Continue medication s as prescribed ., [...] Patten Member ID Guarantor Name 04/11/2023 1 [facility] - DOS ON OR AFTER 2022 - DUAL ELIGIBLE - FPC OPTIONS AND ONE CARE (MEDICARE REPLACEMENT/ADV ANTAGE - HMO) Brandie Santana [id number] Brandie Ryanyes Notes Date Note Type Note Provider Name and Address Organization Details Recorded Time 04/11/2023 text/html HPI: 73 year old, Kyrgyz speaking member, F, with hx of DM, HTN, Asthma, Depression, hx of falls and chronic pain, reporting worsesing Productive cough, shortness of breath with activities and fatigue, worsening head aches, treated at [facility] on 04[place]23 and dx with RSV. Reported has fever and chills, believes her BP is high. Her ANESTHESIOLOGY FACULTY worker is with her and member asked [...] .................. .................. .................. .................. .................. .................. ............... Manager Of Internal Audit Note From eTddy Miranda: Pt sts dis not call for [employer]. [facility] set up appt. Pt was in ER yesterday diagnosed with RSV treated RX for ventalin and prednisone. Pt denies cp sob fever nausea diarrhea. Baseline vitals assessed. Lungs clear. No edema. [facility] contacted ..pt declined benzonatate. Pt advised self care and continue with RX meds. Pt education on signs indicating the ER. Manager Of Internal Audit Allergies: Lorazepam .................. .................. .................. .................. .................. .................. .................. ............... Disposition: Fulfilled Comments: Reviewed - Johana RNSEGMD: Patient seen yesterday evening [facility]. COvid negative per patient/ RSV +/She is using her albuterol every 4 hours. She is on prednisone. No nausea vomiting.Pat has hx that includes but not limited to: DM2/COPD/HTN/Fe deficiency anemia/hypothyroid ism/MDD with psychotic features/obesity status post laparoscopic gastrectomy/positi ve SUSAN/fibromyalgia. Anitha Camacho MD [address] [facility],[address], [place], [phone], [place] 04/12/2023 10:53:56 OBGyn Episode No OBEpisode recorded.
--- OUTSIDE RECORDS SUMMARY | 2024-06-15 11:45 | XMS_ITS | Encounter Summary ---
Author Organization [employer] Address [address] [place] [address] Care Team Providers Care Lang Path Therapist Name Role Phone Pascual Daly MD Primary Care Provide r Fani Heck PharmD Unavailable [phone] Reason for Visit * Reason Comments Med Refill Encounter Details Date Type Department Care Team (Late st Contact Info) Description 01/01/2024 Refill [facility] [address] [place] [address] [phone] Momo Rizo MD [address] [place] [phone] Social History Tobacco Use Types Packs/Day Years [...] 10:30 AM EDT Clinical Support [facility] CHC MED & PEDS [address] [place] [address] Amanda Fernández RN [address] [place] [address] 08/03/2024 10:00 AM EDT Office Visit [facility] MEDICINE [address] [place] [address] Pascual Daly MD [address] [place] [address] documented as of this encounter Goals Goal [...] documented as of this encounter Care Teams Lang Path Therapist Relationship Specialty Start Date End Date Pascual Daly MD [address] [place] [address] PCP - General Internal Medicine 02/22/14 Fani Heck, Woody [address] [place] [address] Pharmacist Internal Medicine 12/16/22 documented as of this encounter
--- OUTSIDE RECORDS SUMMARY | 2024-06-15 11:45 | XMS_ITS | Encounter Summary ---
Author Organization [employer] Address [address] [facility] [facility] [address] [place] [address] Care Team Providers Care Submarine Element Coordinator Name Role Phone Pascual Daly MD Primary Care Provide r Fani Heck PharmD Unavailable [phone] Reason for Visit * Reason Comments Med Refill Encounter Details Date Type Department Care Team (Late st Contact Info) Description 03/27/2023 Refill [facility] [address] [place] [address] Titi Gray FNP Major depressive disorder with [...] Clinical Support [facility] P[facility]S [address] [place] [address] Amanda Fernández, AALIYAH [address] [place] [address] 08/03/2024 10:00 AM EDT Office Visit [facility] MEDICINE [address] [place] [address] Pascual Daly MD [address] [place] [phone] documented as of this encounter Goals Goal [...] documented as of this encounter Care Teams Submarine Element Coordinator Relationship Specialty Start Date End Date Pascual Daly MD [address] [place] [address] PCP - General Internal Medicine 02/22/14 Fani Heck, PharmD [address] [place] [address] Pharmacist Internal Medicine 12/16/22 documented as of this encounter
--- OUTSIDE RECORDS SUMMARY | 2024-06-15 11:45 | XMS_ITS | Encounter Summary ---
Author Organization [employer] Address 75 [facility] 7t [place] [address] Care Team Providers Care It Sales Representative Name Role Phone Pascual Daly MD Primary Care Provide r Fani Heck PharmD Unavailable [phone] Encounter Details Date Type Department Care Team (Late Contact Info) Description 07/01/2022 Abstract [facility] [address] [place] [address] Pascual Dlay MD 230 [place] [address] Social History Tobacco Use Types Packs/Day Years [...] EDT Clinical Support [facility] [address] [place] [address] Amanda Fernández, AALIYAH [address] [place] [address] 08/03/2024 10:00 AM EDT Office Visit [facility] [address] [place] [address] Pascual Daly MD 230 [place] [address] documented as of this encounter Goals Goal [...] documented as of this encounter Care Teams It Sales Representative Relationship Specialty Start Date End Date Pascual Daly MD 230 [place] [address] PCP - General Internal Medicine 02/22/14 Fani Heck, PharmD [address] [place] [address] Pharmacist Internal Medicine 12/16/22 documented as of this encounter
--- OUTSIDE RECORDS SUMMARY | 2024-06-15 11:45 | XMS_ITS | Encounter Summary ---
Author Organization [employer] Address [address] [facility] [address] [facility] [address] 7t [place] [address] Care Team Providers Care Livestock Rancher Name Role Phone Pascual Daly MD Primary Care Provide r Fani Heck PharmD Unavailable [phone] Reason for Visit * Reason Comments Med Refill Encounter Details Date Type Department Care Team (Late st Contact Info) Description 01/14/[address] [facility]S [address] [place] [address] Pascual Daly MD 230 [place], [place] [phone] Fibromyalgia Social History Tobacco Use Types Packs/Day [...] 07/22/2024 10:30 AM EDT Clinical Support [facility] 505 [place] [address] Amanda Fernández, AALIYAH [address] [place] [address] 08/03/2024 10:00 AM EDT Office Visit [facility] 230 [place] [address] Pascual Daly MD [address] [place] [address] documented as of this encounter Goals Goal [...] documented as of this encounter Care Teams Livestock Rancher Relationship Specialty Start Date End Date Pascual Daly MD [address] [place] [address] PCP - General Internal Medicine 02/22/14 Fani Heck, KristiD [address] [place] [address] [place] [phone] Pharmacist Internal Medicine 12/16/22 documented as of this encounter
--- OUTSIDE RECORDS SUMMARY | 2024-06-15 11:45 | XMS_ITS | Encounter Summary ---
Author Organization [employer] Address 75 [facility] 7t [place] [address] Care Team Providers Care Parcel Post Delivery Name Role Phone Pascual Daly MD Primary Care Provide r Fani Heck PharmD Unavailable [phone] Reason for Visit * Reason Comments Med Refill Encounter Details Date Type Department Care Team (Late st Contact Info) Description 03/04/2023 Refill [facility] 230 [place] [address] Pascual Daly MD 230 [place], [place] [phone] Type 2 diabetes mellitus without complication, with long-term current use of insulin ([facility]) Social History Tobacco Use Types Packs/Day Years [...] Description 07/22/2024 10:30 AM EDT Clinical Support [facility] MED & PEDS 505 [place] [address] Aamnda Fernández, AALIYAH 505 [place] [address] 08/03/2024 10:00 AM EDT Office Visit [facility] 230 [place] [address] Pascual Daly MD [address] [place] [address] documented as of this encounter Goals Goal Patient Goal Type Associated Problems Recent Progress Patient-Stated? Author Blood Pressure < 140/90 Blood Pressure 133/70( 025 11:28 AM EST) No Fani Heck, KristiD documented as of this encounter Visit Diagnoses Diagnosis Type 2 diabetes mellitus without complication, with long-term current use of insulin ([facility]) documented in this encounter Additional Health Concerns Assessment Noted Time PHQ-9 Depression Total Score: 9 02/25/20 23 11:02 AM EST documented as of this encounter Care Teams Parcel Post Delivery Relationship Specialty Start Date End Date Pascual Daly MD 230 [place] [address] PCP - General Internal Medicine 02/22/14 Fani Heck, KristiD 230 [place] [address] Pharmacist Internal Medicine 12/16/22 documented as of this encounter
--- OUTSIDE RECORDS SUMMARY | 2024-06-15 11:45 | XMS_ITS | Encounter Summary ---
Author Organization [employer] Address [address] [facility] [address] 7t [place] [address] Care Team Providers Care Cigarette Package Examiner Name Role Phone Pascual Daly MD Primary Care Provide r Fani Heck PharmD Unavailable [phone] Reason for Visit * Reason Comments Med Refill Encounter Details Date Type Department Care Team (Late st Contact Info) Description 07/20/2023 Refill [facility] 230 [place] [address] Titi Gray FNP Major depressive disorder with [...] Encounters Date Type Department Care Team ([facility] st Contact Info) Description 07/22/2024 10:30 AM EDT Clinical Support [facility] 505 [place] [address] Amanda Fernández RN 505 [place] [address] 08/03/2024 10:00 AM EDT Office Visit [facility] 230 [place] [address] Pascual Daly MD [address] [place] [address] documented as of this encounter Goals Goal [...] documented as of this encounter Care Teams Cigarette Package Examiner Relationship Specialty Start Date End Date Pascual Daly MD [address] [place] [address] PCP - General Internal Medicine 02/22/14 Fani Heck, PharmD [address] [place] [address] Pharmacist Internal Medicine 12/16/22 documented as of this encounter
--- OUTSIDE RECORDS SUMMARY | 2024-06-15 11:45 | XMS_ITS | Encounter Summary ---
Author Organization [employer] Address 75 [facility] 7t [place] [address] Care Team Providers Care Clinical Rehab Liaison Name Role Phone Pascual Daly MD Primary Care Provide r Fani Heck PharmD Unavailable [phone] Encounter Details Date Type Department Care Team ([facility] st Contact Info) Description 09/25/2023 Telephone [facility] 230 [place] [address] Pascual Daly MD 230 [place] [address] Social History Tobacco Use Types Packs/Day Years [...] 07/22/2024 10:30 AM EDT Clinical Support [facility] 505 [place] [address] Amanda Fernández, RN 505 [place] [address] 08/03/2024 10:00 AM EDT Office Visit [facility] 230 [place] [address] Pascual Daly MD [address] [place] [address] documented as of this encounter Goals Goal [...] documented as of this encounter Care Teams Clinical Rehab Liaison Relationship Specialty Start Date End Date Pascual Daly MD [address] [place] [address] PCP - General Internal Medicine 11/4/14 Fani Heck, KristiD [address] [place] [address] Pharmacist Internal Medicine 12/16/22 documented as of this encounter
--- OUTSIDE RECORDS SUMMARY | 2024-06-15 11:45 | XMS_ITS | Encounter Summary ---
Author Organization [employer] Address [address] [facility] [address] 7t [place] [address] Care Team Providers Care Cattle Dipper Name Role Phone Pascual Daly MD Primary Care Provide r Fani Heck PharmD Unavailable [phone] Encounter Details Date Type Department Care Team (Late st Contact Info) Description 03/05/2024 Refill [facility] 230 [place] [address] Jefry Chun Benign hypertension; Type 2 diabetes mellitus without complication, with long-term current use of insulin ([facility]) Social History Tobacco Use Types Packs/Day [...] Upcoming Encounters Date Type Department Care Team ([facility] st Contact Info) Description 07/22/2024 10:30 AM EDT Clinical Support [facility] MED [facility] PEDS 505 [place] [address] Amanda Fernández RN 505 [place] [address] 08/03/2024 10:00 AM EDT Office Visit [facility] [address] [place] [address] Pascual Daly MD [address] [place] [address] documented as of this encounter Goals Goal Patient Goal Type Associated Problems Recent Progress Patient-Stated? Author Blood Pressure < 140/90 Blood Pressure 133/70( 025 11:28 AM EST) No Fani Heck, PharmD documented as of this encounter Visit Diagnoses Diagnosis Benign hypertension Essential hypertension, benign Type 2 diabetes mellitus without complication, with long-term current use of insulin ([facility]) documented in this encounter Additional Health Concerns Assessment Noted Time PHQ-9 Depression Total Score: 9 01/29/20 24 11:00 AM EDT documented as of this encounter Care Teams Cattle Dipper Relationship Specialty Start Date End Date Pascual Daly MD [address] [place] [address] PCP - General Internal Medicine 02/22/14 Fani Heck, KristiD [address] [place] [address] Pharmacist Internal Medicine 12/16/22 documented as of this encounter
--- OUTSIDE RECORDS SUMMARY | 2024-06-15 11:45 | XMS_ITS | Encounter Summary ---
Author Organization [employer] Address 75 [facility] 7t [place] [address] Care Team Providers Care Oracle E Business Developer Name Role Phone Pascual Daly MD Primary Care Provide r Fani Heck PharmD Unavailable [phone] Reason for Visit * Reason Onset Date Comments Appointment Request 09/03/2022 Encounter Details Date Type Department Care Team ([facility] st Contact Info) Description 09/03/2022 Telephone [facility] 230 [place] [address] Pascual Daly MD 230 [place] [address] Appointment Request Social History Tobacco Use Types [...] [facility] 505 [place] [address] Amanda Fernández, RN 505 [place] [address] 08/03/2024 10:00 AM EDT Office Visit [facility] 230 [place] [address] Pascual Daly MD 230 [place] [address] documented as of this encounter Goals Goal Patient Goal Type Associated Problems Recent Progress Patient-Stated? Author Blood Pressure < 140/90 Blood Pressure 133/70( 025 11:28 AM EST) No aFni Heck PharmD documented as of this encounter Visit Diagnoses Not on filedocumented in this encounter Additional Health Concerns Assessment Noted Time PHQ-9 Depression Total Score: 8 07/05/19 23 9:26 AM EDT documented as of this encounter Care Teams Oracle E Business Developer Relationship Specialty Start Date End Date Pascual Daly MD [address] [place] [address] PCP - General Internal Medicine 02/22/14 Fani Heck PharmD [address] [place] [address] Pharmacist Internal Medicine 12/16/22 documented as of this encounter
--- OUTSIDE RECORDS SUMMARY | 2024-06-15 11:45 | XMS_ITS | Encounter Summary ---
Author Organization [employer] Address 75 [facility] 7t [place] [address] Care Team Providers Care Police Magistrate Name Role Phone Pascual Daly MD Primary Care Provide r Fani Heck PharmD Unavailable [phone] Reason for Visit * Reason Onset Date Comments Med Refill 10/11/2022 Encounter Details Date Type Department Care Team ([facility] st Contact Info) Description 10/11/2022 Telephone [facility] 230 [place] [address] Pascual Daly MD 230 [place], [place] [phone] Med Refill Social History Tobacco Use Types [...] 10:30 AM EDT Clinical Support [facility] PED[facility] 505 [place] [address] Amanda Fernández, RN 505 [place] [address] 08/03/2024 10:00 AM EDT Office Visit [facility] 230 [place] [address] Pascual Daly MD 230 [place] [address] documented as of this encounter Goals Goal [...] documented as of this encounter Care Teams Police Magistrate Relationship Specialty Start Date End Date Pascual Daly MD 230 [place] [address] PCP - General Internal Medicine 02/22/14 Fani Heck, PharmD [address] [place] [address] Pharmacist Internal Medicine 12/16/22 documented as of this encounter
--- OUTSIDE RECORDS SUMMARY | 2024-06-15 11:45 | XMS_ITS | Encounter Summary ---
Author Organization [employer] Address 75 [facility] 7t [place] [address] Care Team Providers Care Nursing Director Name Role Phone Pascual Daly MD Primary Care Provide r Fani Heck PharmD Unavailable [phone] Encounter Details Date Type Department Care Team (Late Contact Info) Description 08/29/2022 Abstract [facility] [address] [place] [address] Pascual Daly MD 230 [place] [address] Social History Tobacco Use Types Packs/Day Years [...] Description 07/22/2024 10:30 AM EDT Clinical Support [facility] [address] [place] [address] Amanda Fernández, AALIYAH [address] [place], [place] 08/03/2024 10:00 AM EDT Office Visit [facility] 230 [place] [address] Pascual Daly MD 230 [place] [address] documented as of this encounter Goals Goal [...] documented as of this encounter Care Teams Nursing Director Relationship Specialty Start Date End Date Pascual Daly MD 230 [place], [place] [phone] PCP - General Internal Medicine 02/22/14 Fani Heck PharmD 230 [place], [place] [phone] Pharmacist Internal Medicine 12/16/22 documented as of this encounter
--- OUTSIDE RECORDS SUMMARY | 2024-06-15 11:45 | XMS_ITS | Encounter Summary ---
Author Organization [employer] Address 75 [facility] 7t [place] [address] Care Team Providers Care District Manager Primary Care Sales Name Role Phone Pascual Daly MD Primary Care Provide r Fani Heck PharmD Unavailable [phone] Reason for Visit * Reason Comments Med Refill Encounter Details Date Type Department Care Team (Late Contact Info) Description 12/28/2022 Refill [facility] 230 [place] [address] Titi Gray FNP Major depressive disorder with [...] Description 07/22/2024 10:30 AM EDT Clinical Support [facility] 505 [place], [place] [phone] Amanda Fernández, AALIYAH 505 [place] [address] 08/03/2024 10:00 AM EDT Office Visit [facility] 230 [place] [address] Pascual Daly MD [address] [place] [address] documented as of this encounter Goals Goal [...] documented as of this encounter Care Teams District Manager Primary Care Sales Relationship Specialty Start Date End Date Pascual Daly MD [address] [place] [address] PCP - General Internal Medicine 02/22/14 Fani Heck, PharmD [address] [place] [address] Pharmacist Internal Medicine 12/16/22 documented as of this encounter
--- OUTSIDE RECORDS SUMMARY | 2024-06-15 11:45 | XMS_ITS | Encounter Summary ---
Author Organization [employer] Address 75 [facility] 7t [place] [address] Care Team Providers Care Vice President Medical Affairs Name Role Phone Pascual Daly MD Primary Care Provide r Fani Heck PharmD Unavailable [phone] Reason for Visit * Reason Comments Med Refill Encounter Details Date Type Department Care Team (Late Contact Info) Description 08/08/2022 Refill [facility] [address] [place] [address] Momo Rizo MD [address] [place] [address] Mild intermittent asthma without complication Social History [...] 10:30 AM EDT Clinical Support [facility] MED & PEDS 505 [place] [address] Amanda Fernández, AALIYAH 505 [place] [address] 08/03/2024 10:00 AM EDT Office Visit [facility] MEDICINE [address] [place] [address] Pascual Daly MD [address] [place] [address] documented as of this encounter Goals Goal [...] documented as of this encounter Care Teams Vice President Medical Affairs Relationship Specialty Start Date End Date Pascual Daly MD [address] [place] [address] PCP - General Internal Medicine 02/22/14 Fani Heck, PharmD [address] [place] [address] Pharmacist Internal Medicine 12/16/22 documented as of this encounter
--- OUTSIDE RECORDS SUMMARY | 2024-06-15 11:45 | XMS_ITS | Encounter Summary ---
Author Organization [employer] Address 75 [facility] 7t [place] [address] Care Team Providers Care Jewel Hole Finish Opener Name Role Phone Pascual Daly MD Primary Care Provide r Fani Heck PharmD Unavailable [phone] Reason for Visit * Reason Comments Med Refill Encounter Details Date Type Department Care Team (Late Contact Info) Description 10/02/2022 Refill [facility] 230 [place] [address] Titi Gray FNP Major depressive disorder with [...] Description 07/22/2024 10:30 AM EDT Clinical Support [facility] MED & PEDS 505 [place] [address] Amanda Fernández, AALIYAH 505 [place] [address] 08/03/2024 10:00 AM EDT Office Visit [facility] 230 [facility] [place] [address] Pascual Daly MD 230 [place] [address] documented as of this encounter Goals Goal [...] documented as of this encounter Care Teams Jewel Hole Finish Opener Relationship Specialty Start Date End Date Pascual Daly MD 230 [place] [address] PCP - General Internal Medicine 02/22/14 Fani Heck, PharmD 230 [facility] [place] [address] Pharmacist Internal Medicine 12/16/22 documented as of this encounter
--- OUTSIDE RECORDS SUMMARY | 2024-06-15 11:45 | XMS_ITS | Data Portability ---
Author Organization [facility], Main Office Address [address] [place] [address] Care Team Providers Care Director Erp Name Role Phone MARII MASSEY Primary Care Provider [facility] F[facility] OTHER Assessment No assessment recorded. Plan of Treatment Reminders Order Date Submit Date Provider Last Modified By Organization Details Last Modified Time Details Appointments None recorded. Lab None recorded. Referral None recorded. Procedures None recorded. Surgeries None recorded. Imaging None recorded. Medication Orders oxycodone 5 mg tablet 2023 024 [facility] , [address] [place] [address], [address], 4 21:23:28 oxycodone 5 mg tablet 2023 024 [facility] , [address] [place] [address], [address], 4 13:28:18 Patient TargetsNo targets recorded. Patient InstructionsNo instructions recorded. Reason for Referral None Reported. 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 Dori Pena NP [address] [facility], [address], [place], [address], [facility] 4 15:49:21 Hypertensive disorder 38012134 Active 2023 Doir Pena NP [address], [address], [place], [address], [facility] 4 15:49:57 Gastroesophage al reflux disease 465928341 Active 2023 Dori Pena NP [address], [address], [place], [address], [place] [facility] 4 15:51:24 Rheumatoid arthritis 81405751 Active 2023 Dori Pena NP [address], [address], [place], [address], [facility] 4 15:51:29 Mixed anxiety and depressive disorder 083040497 Active 2023 Dori Pena NP [address], [address], [place], [address], [place] [facility] 4 15:51:45 Obesity 125453149 Active 2023 Dori Pena NP [address], [address], [place], [address], [facility] 4 15:51:51 Closed flail chest 836457881 Active 2023 Dori Pena NP [address], [address], [place], [address], [facility] 4 15:52:35 Asthenia 12097992 Active 2023 Dori Pena NP [address], [address], [place], [address], [facility] 4 15:52:46 Irritable bowel syndrome 55315538 Active 2023 Dori Pena NP [address], [address], [place], [address], [facility] 4 16:06:46 Recurrent falls 149486186 Active 2023 Dori Pena NP [address], [address], [place], [address], [facility] 4 16:38:03 Problem Notes None recorded. Procedures Surgical History Date Name Laterality Status Provider Name and Address Organization Details Recorded Time bypass gastroenterostomy completed Dori Pena, AAKASH [address], [place], [address], [facility] 09/17/2023 15:40:41 Laparoscopic cholecystectomy completed Dori Pena NP [address] [facility], [address], [place], [address], [facility] 09/17/2023 15:41:25 fixed suspension procedure of urinary bladder neck completed Dori Pena NP [address], [place], [address], [facility] 09/17/2023 15:42:01 Appendectomy completed Dori Pena NP [address], [place], [address], [facility] 09/17/2023 15:42:11 bilateral cataract surgery completed Dori Pena NP [address] [facility], [address], [place], [address], [facility] 09/17/2023 15:42:26 Imaging Results None recorded. Procedure Notes None recorded. Medical Equipment None Reported. Allergies Allergen ID Allergen Name Allergen Category Reaction Reaction Severity Criticality Documentation Date Start Date Code Code System Note Provider Name and Address Organization Details Recorded Time 71052 celecoxib medicatio n other Not available [facility]asse 09/17/2023 39802 7 RxNorm unkno wn Not Available Not Available Not Available 95296 lorazepam medicatio n other [facility] 09/17/2023 6470 RxNorm unkno wn Not Available Not Available Not Available 49175 tramadol medicatio n other Not available unabletoasse 09/17/2023 65304 RxNorm unkno wn Not Available Not Available Not Available 41707 zolpidem medicatio n other Not available unabletoasse 09/17/2023 16696 RxNorm unkno wn Not Available Not Available [...] Address Organization Details Last Updated DateTime 4 75776.7 8 g 98 /min 18 /min 97.8 [degF] 94 % 94 % 150 mm[Hg] 77 mm[Hg] Dori Pena NP [address] [facility] [address], [place], [address], [facility] 4 10:49:41 Date Recorded Body weight Heart rate Respiratory rate Body temperature Oxygen saturation Oxygen saturation in Arterial blood by Pulse oximetry Systolic blood pressure Diastolic blood pressure Provider Name and Address Organization Details Last Updated DateTime 4 03610.7 8 g 83 /min 18 /min 97 [degF] 98 % 98 % 148 mm[Hg] 74 mm[Hg] Dori Pena NP [address] [facility] [address], [place], [address], [facility] 4 13:29:12 Date Recorded Body weight Heart rate Respiratory rate Body temperature Oxygen saturation Oxygen saturation in Arterial blood by Pulse oximetry Systolic blood pressure Diastolic blood pressure Provider Name and Address Organization Details Last Updated DateTime 4 77967.7 8 g 76 /min 18 /min 97.8 [degF] 97 % 97 % 128 mm[Hg] 78 mm[Hg] Dori Pena NP [address] [facility] [address], [place], [address], [facility] 4 12:05:35 Date Recorded Body weight Heart rate Respiratory rate Body temperature Oxygen saturation Oxygen saturation in Arterial blood by Pulse oximetry Systolic blood pressure Diastolic blood pressure Provider Name and Address Organization Details Last Updated DateTime 4 73401 g 80 /min 18 /min 98 [degF] 95 % 95 % 111 mm[Hg] 60 mm[Hg] Dori Pena NP [address] [facility] [address], [place], [address], [facility] 4 11:40:36 Date Recorded Body weight Heart rate Respiratory rate Body temperature Oxygen saturation Oxygen saturation in Arterial blood by Pulse oximetry Systolic blood pressure Diastolic blood pressure Provider Name and Address Organization Details Last Updated DateTime 4 99173 g 74 /min 18 /min 98.4 [degF] 95 % 95 % 124 mm[Hg] 68 mm[Hg] Dori Pena NP [address] [facility], [facility] [address], [place], [address], [facility] 4 13:12:09 Social History Question Answer Notes LastModified by Organizat ion Details LastModified Time Tobacco Smoking Status Never Smoker Dori Pena NP [address] [facility], [facility] [address], [place], [address], [facility] 09/17/2023 15:39:38 Do You Have An Advance [...] (RSV) vaccine, unspecified 4 completed Radha batista, [facility] 09/19/2023 16:11:12 Tdap 4 completed Radha Stoll null, [facility] 09/19/2023 16:11:26 Td(adult) unspecified formulation 3 completed Radha Jerman null, [facility] 09/19/2023 16:11:43 Td(adult) unspecified formulation 3 completed Radha Jerman null, [facility] 09/19/2023 16:11:51 Pneumococcal conjugate PCV 13 6 completed Radha Jerman null, [facility] 09/19/2023 16:12:53 Pneumococcal conjugate PCV20, polysaccharide [id number] conjugate, adjuvant, PF 4 completed Radha tSoll null, [facility] 09/19/2023 16:13:07 pneumococcal polysaccharide PPV23 1 completed Radha Stoll null, [facility] 09/19/2023 16:13:22 pneumococcal polysaccharide PPV23 4 completed Radha Jerman null, [facility] 09/19/2023 16:13:31 influenza, unspecified formulation 2 [facility] 16:13:47 influenza, unspecified formulation 3 completed Radha Jerman null, [facility] 09/19/2023 16:13:55 MMR 8 completed Radha Jerman [facility], [facility] 09/19/2023 16:14:21 SARS-COV-2 (COVID-19) vaccine, UNSPECIFIED 1 completed Radha Jerman null, [facility] 09/19/2023 16:15:58 SARS-COV-2 (COVID-19) vaccine, UNSPECIFIED 1 completed Radha Jerman null, [facility] 09/19/2023 16:16:13 SARS-COV-2 (COVID-19) vaccine, UNSPECIFIED 1 [facility] 16:16:27 SARS-COV-2 (COVID-19) vaccine, UNSPECIFIED 2 completed aRdha Stoll [facility] 09/19/2023 16:17:15 SARS-COV-2 (COVID-19) vaccine, UNSPECIFIED 2 completed Radha Stoll [facility] 09/19/2023 16:21:38 zoster, unspecified formulation 5 completed Radha Stoll [facility] 09/19/2023 16:23:04 zoster, unspecified formulation 9 completed Radha [facility] 09/19/2023 16:23:18 zoster, unspecified formulation 9 completed [facility] 09/19/2023 16:25:18 Past Encounters Encounter ID Performer Location Encounter Start Date Encounter Closed Date Diagnosis/Indication Diagnosis SNOMED-CT Code Diagnosis ICD10 Code Diagnosis Note [id number] Dori Pena NP [address] [address] 09/17/2023 15:22:09 09/23/2023 14:50:24 Closed flail chest 309598374 S22.5XXD with multiple rib fractures and clavicular [...] If stable no further workup needed. 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 IBSlinzess 290 mcg q ammonitor Deficiency anemias 94303 3007 D53.9 folic acidvit e96ejvbtmd Coronary arteriosclerosis 32393058 I25.10 hx of MIatorvast atin 20 mg po dailyclopi dogrel 75 mg po q amsee above htn medsmonito r Recurrent falls 16457428 2 R29.6 reports history of falls with 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 home to help her and balance issuesrepo rts more than 5 falls/year supportive caremonito r [id number] JESSICA HINDS NP [place] [address] [place] [address] 09/18/2023 13:29:08 09/23/2023 15:13:15 Closed flail chest 004488089 S22.5XXD with multiple rib fractures and clavicular [...] If stable no further workup needed. Asthenia 03872559 R53.1 with notable weakness due to injuryPT OT eval and treatsuppo rtive caremonito r Type 1 frank betes mellitus 63707675 E10.9 A1C 8.8%Contin eu:tresiba 30 unit sc qhsinsulin 2-14 SSI sc qidmonitor BS and adjust as needed Hypertensive disorder 38 714628 I10 amlodipine 10 mg po dailylosar zaragoza 100 mg po dailycoreg 6.25 mg bidmonitor bp/vitals 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 664907 E06.3 levothyrox ine 112 mcg dailymonit or tsh as needed Gastroesop hageal reflux disease 119867733 K21.9 esomeprazo le 40 mg o daily Deficiency anemias 83185 3007 D53.9 folic acidvit [id number] Obesity 397110886 E66.9 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 IBSlinzess 290 mcg q ammonitor Coronary arteriosclerosis 45027742 I25.10 hx of MIatorvast atin 20 mg po dailyclopi dogrel 75 mg po q amsee above htn medsmonito r Recurrent falls 63677562 2 R29.6 reports history of falls with 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 home to help her and balance issuesrepo rts more than 5 falls/year supportive caremonito r [id number] Dori Pena NP [facility] [address] [address] 09/22/2023 14:27:57 09/29/2023 19:16:34 Closed flail chest 771204090 S22.5XXD with multiple rib fractures and clavicular [...] If stable no further workup needed. Asthenia 19068080 R53.1 with notable weakness due to injuryPT OT eval and treatsuppo rtive caremonito r Type 1 frank betes mellitus 96266835 E10.9 BS 81-252 [id number] 8.8%contin ue:tresiba 30 unit sc qhsinsulin 2-14 SSI sc qidmonitor BS and adjust as needed Hypertensive disorder 38 422297 I10 improving lately, boderline highcontam lodipine 10 mg po dailylosar zaragoza 100 mg po dailycoreg 6.25 mg bidmonitor bp/vitals 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 014818 E06.3 contlevoth yroxine 112 mcg dailymonit or tsh as needed Gastroesop hageal reflux disease 720787900 K21.9 esomeprazo le 40 mg o daily Deficiency anemias 72376 3007 D53.9 folic acidvit s93xyorgzy Obesity 701802847 E66.9 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 home to help her and balance issuesrepo rts more than 5 falls/year supportive caremonito r Acute cystitis 50662137 N30.00 reports dysuria and occassiona l incontinen ce latelyurin e culture returned showing > 100,000 klebsiella pneumo ssp and started on ceftriaxon e 1gram IM and cefpodoxim e 200 mg po bid x 7 days with probiotic by on provider over the weekend.mo nitor [id number] Jonel Alamo MD [address] [address] 09/23/2023 11:01:43 09/29/2023 19:25:59 Closed fracture of multiple left ribs 4896945933 4786055 S22.42XG see HPIleft rib fxs 2-6 with concern for flail chest , with clavicular fxeval by surgery with no interventi on indicatedm onitor respirator y statusutil ize incentive spirometer monitor for pain controlupd ate surgery with concerns Asthenia 27504167 R53.1 PT OT eval and treatmonit or need for increased support in community Type 1 frank betes mellitus 77442754 E10.9 tresiba 30 units qdSS insulinmon itor glucose and need to titrate Hypertensive disorder 38 834297 I10 norvasc 10 mg qdcoreg 6.25 mg bidlosarta n 100 mg qdcurrentl y elevatedmo nitor need for increased control 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 800929 E06.3 hx of added to PMHmaintai priscilla onsynthroi d 112 mcg qdmonitor tsh prn Gastroesop hageal reflux disease 884526495 K21.9 nexium 40 mg qd continuedm onitor for effect Obesity 756900123 E66.09 dietary eval in patient with baseline DM Mixed anxi ety and depressive disorder 285400538 F41.8 carrying dx requiring multiple medication swill continue out patient medication s includinga bility and ativanmoni tor moodpsych eval prn Rheumatoid arthritis 698 54053 M06.9 remains onenbrel 50 mg q friday Irritable bowel syndrome 29019693 K58.9 ? 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 home to help her and balance issuesrepo rts more than 5 falls/year supportive caremonito r Solitary n odule of lung 747466483 R91.1 question right 4 mm upper lobe nodulecons ider repeat scan in 6-12 months Primary insomnia 9173109 F51.01 continue melatoninm onitor need to titrate Abnormal weight loss 267 119571 R63.4 weight dropped > 12 lbs in a few days from admitappea rs to be error in initial intake weightwill monitor Acute cystitis 33132012 N30.00 now on cefpodoxim e to complete coursemoni tor for recurrent disease [id number] Dori Pena NP [facility] [address] [place] [address] 09/24/2023 09:21:20 09/29/2023 19:39:42 Closed fracture of multiple left ribs 6166245696 6969220 S22.42XG with multiple rib fractures and clavicular [...] in am off pmadjust as needed. Asthenia 40450413 R53.1 PT OT eval and treatmonit or need for increased support in community Type 1 frank betes mellitus 60889787 E10.9 BS controlled conttresib a 30 units qdSS insulinmon itor glucose and need to titrate Hypertensive disorder 38 744571 I10 stable on below regimennor vasc 10 mg qdcoreg 6.25 mg bidlosarta n 100 mg qdcurrentl y elevatedmo nitor need for increased control 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 968358 E06.3 hx of added to PMHmaintai priscilla onsynthroi d 112 mcg qdmonitor tsh prn Gastroesop hageal reflux disease 486714181 K21.9 nexium 40 mg qd continuedm onitor for effect Obesity 305461477 E66.09 dietary eval in patient with baseline DM Rheumatoid arthritis 698 91843 M06.9 remains onenbrel 50 mg q friday Irritable bowel syndrome 66522273 K58.9 ? IBSlinzess 290 mcg q ammonitor Coronary arteriosclerosis 52729951 I25.10 hx of MIatorvast atin 20 mg po dailyclopi dogrel 75 mg po q amsee above htn medsmonito r Recurrent falls 89106292 2 R29.6 reports history of falls with 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 home to help her and balance issuesrepo rts more than 5 falls/year supportive caremonito r Primary insomnia 5654853 F51.01 continueme latoninmon itor need to titrate Abnormal weight loss 267 014461 R63.4 weight dropped > 12 lbs in a few days from admitappea rs to be error in initial intake weight6/ reweigh pt todaywill monitor Acute cystitis 60306708 N30.00 now on cefpodoxim e to complete courseaysm ptomaticmo nitor for recurrent disease [id number] Dori Pena, AAKASH [facility] [address] [place] [address] 09/29/2023 10:39:23 10/03/2023 11:24:38 Closed fracture of multiple left ribs 7702472032 1177586 S22.42XG with multiple rib fractures and clavicular [...] to left shoulderad just as needed. Asthenia 18249851 R53.1 PT OT eval and treatmonit or need for increased support in community Type 1 frank betes mellitus 60232175 E10.9 BS controlled conttresib a 30 units qdSS insulinmon itor glucose and need to titrate Hypertensive disorder 38 586574 I10 stable on below regimen with slightly high bp likley related to pain, monitorcon tnorvasc 10 mg qdcoreg 6.25 mg bidlosarta n 100 mg qdcurrentl y elevatedmo nitor need for increased control 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 320917 E06.3 hx of added to PMHmaintai priscilla onsynthroi d 112 mcg qdmonitor tsh prn Gastroesop hageal reflux disease 712542283 K21.9 contnexium 40 mg qdmonitor for effect Obesity 324442739 E66.09 dietary evalbaseli ne DMweight today please Rheumatoid arthritis 698 88701 M06.9 remains onenbrel 50 mg q friday Irritable bowel syndrome 46238441 K58.9 ? 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 home to help her and balance issuesrepo rts more than 5 falls/year supportive caremonito r Primary insomnia 3171769 F51.01 continueme latoninmon itor need to titrate Abnormal weight loss 267 769647 R63.4 weight dropped > 12 lbs in a few days from admitappea rs to be error in initial intake weight6/10 reweigh pt todaywill monitor Acute cystitis 69633067 N30.00 resolved cefpodoxim e to complete courseaysm ptomaticmo nitor for recurrent disease Mixed anxi ety and depressive disorder 795282411 F41.8 contaripip razole 20 mg dailyvenla faxine 150 mg po dailyprazo sin 6 mg po qhsmelaton in 3 mg po qhshydroxy zine 10 mg po q 8 hours prn anxiety6/1 0 renew clonazepam 0.5 mg po q 8 hours prn anxietymon itor [id number] [facility] [address] 10/02/2023 13:28:32 10/07/2023 10:08:18 Hypertensive disorder 29868511 I10 stable on below regimen as it comes down to 120s systolic post medication contnorvas c 10 mg qdcoreg 6.25 mg bidlosarta n 100 mg qdmonitor need for increased control Closed fra cture of multiple left ribs 3975002122 5743974 S22.42XG with left rib fxs 2-6 with [...] OT eval and txadjust as needed. Asthenia 77474185 R53.1 PT OT eval and treatmonit or need for increased support in community Type 1 frank betes mellitus 24228061 E10.9 BS controlled glucernaco nttresiba 30 units qdSS insulinmon itor glucose and need to titrate Gastroesop hageal reflux disease 375564486 K21.9 contnexium 40 mg qdmonitor for effect Rheumatoid arthritis 698 34539 M06.9 remains onenbrel 50 mg q friday Irritable bowel syndrome 83421148 K58.9 ? IBSlinzess 290 mcg q ammonitor Coronary arteriosclerosis 26436775 I25.10 hx of MIcoreg 6.25 mg po bidatorvas tatin 20 mg po dailyclopi dogrel 75 mg po q amsee above htn medsmonito r Recurrent falls 86631136 2 R29.6 reports history of falls with 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 home to help her and balance issuesrepo rts more than 5 falls/year supportive care and therapy here for balance, strengthen ing, gait, mobility, endurancem onitor Abnormal weight loss 267 921466 R63.4 weight dropped > 12 lbs in a few days from admitappea rs to be error in initial intake weight09/28 reweigh pt today10/01 reweight pt today, no weight since 09/21will monitor Mixed anxi ety and depressive disorder 068528773 F41.8 contaripip razole 20 mg dailyvenla faxine 150 mg po dailyprazo sin 6 mg po qhsmelaton in 3 mg po qhshydroxy zine 10 mg po q 8 hours prn anxiety6/ 0 renew clonazepam 0.5 mg po q 8 hours prn anxiety x 14 days10/01 cont as abovemonit or [id number] Dori Pena NP [facility] [address] [place] [address] 10/06/2023 12:02:36 10/09/2023 09:34:42 Closed fracture of multiple left ribs 4127685072 1537330 S22.42XG with left rib fxs 2-6 with [...] txadjust as needed. Abnormal weight loss 267 438380 R63.4 weight dropped > 12 lbs in a few days from admitappea rs to be error in initial intake weight10/04 160 lbs which is same as 09/22/23will monitor Hypertensive disorder 38 902994 I10 stable on below regimen as it comes down to 120s systolic post medication contnorvas c 10 mg qdcoreg 6.25 mg bidlosarta n 100 mg qdmonitor need for increased control Asthenia 17671513 R53.1 PT OT eval and treatmonit or need for increased support in community Type 1 frank betes mellitus 73841640 E10.9 pt having syrup and gingerale at [...] and need to titrate Rheumatoid arthritis 698 54979 M06.9 remains onenbrel 50 mg q friday Irritable bowel syndrome 46666758 K58.9 with constipati on today, states many days10/05 mon given today, will do supp if no bm by 4 pm10/05 start senna 8.6 mg po daily? IBSlinzess 290 mcg q ammonitor Coronary arteriosclerosis 73616319 I25.10 hx of MIcoreg 6.25 mg po bidatorvas tatin 20 mg po dailyclopi dogrel 75 mg po q amsee above htn medsmonito r Mixed anxi ety and depressive disorder 951797995 F41.8 contaripip razole 20 mg dailyvenla faxine 150 mg po dailyprazo sin 6 mg po qhsmelaton in 3 mg po qhshydroxy zine 10 mg po q 8 hours prn anxiety09/19 0 renew clonazepam 0.5 mg po q 8 hours prn anxiety x 14 days10/01 cont as above10/05 stable today with above planmonito r [id number] [facility] [address] 10/08/2023 11:40:06 10/15/2023 15:50:32 Type 1 diabetes mellitus 77201694 E10.9 pt having syrup and gingerale at [...] and need to titrate Irritable bowel syndrome 37664867 K58.9 with constipati on resolved with mom on 7 mon given today10/05 start senna 8.6 mg po daily? IBSlinzess 290 mcg q am10/07 having bm regularly nowmonitor Closed fra cture of multiple left ribs [id number] S22.42XG with left rib fxs 2-6 with [...] txadjust as needed. Abnormal weight loss 267 479616 R63.4 weight dropped > 12 lbs in a few days from admitappea rs to be error in initial intake weight10/04 160 lbs which is same as 09/22/23, ? incorrect [facility] Hypertensive disorder 38 295335 I10 stable on below regimen as it comes down to 120s systolic post medication contnorvas c 10 mg qdcoreg 6.25 mg bidlosarta n 100 mg qdmonitor need for increased control Asthenia 99497555 R53.1 PT OT eval and treatmonit or need for increased support in community Rheumatoid arthritis 698 09917 M06.9 remains onenbrel 50 mg q friday Coronary arteriosclerosis 34842765 I25.10 hx of MIcoreg 6.25 mg po bidatorvas tatin 20 mg po dailyclopi dogrel 75 mg po q amsee above htn medsmonito r Mixed anxi ety and depressive disorder 145531853 F41.8 contaripip razole 20 mg dailyvenla faxine 150 mg po dailyprazo sin 6 mg po qhsmelaton in 3 mg po qhshydroxy zine 10 mg po q 8 hours prn anxiety/ 0 renew clonazepam 0.5 mg po q 8 hours prn anxiety x 14 days10/01 cont as above10/05 stable today with above plan10/07 stable today with above planmonito r Hyperkalemia 29022227 E8 7.5 k of 5.7 on give kayexalate 15 gm today10/08 bmp in ammonitor for additional e lyte abbormalit ies [id number] Dori Pena NP [address] [address] 10/09/2023 13:08:06 10/15/2023 16:27:22 Closed fracture of multiple left ribs [id number] [id number] S22.42XG resolving with left rib fxs 2-6 [...] prnadjust as needed outpt with pcp Hyperkalemia 90885268 E8 7.5 k of 5.7 on give kayexalate 15 gm on 10/07monito r for additional e lyte abnormalit ies outpt with pcp Type 1 frank betes mellitus 36298749 E10.9 BS slightly high while at rehab with eating sugary foods/drin ksPlan: diet sodas and diet syrup and less sugary choicescon tglucernat resiba 30 units qdSS insulin with meals as per home schedmonit or glucose and need to titrate outpt with pcp outpt Irritable bowel syndrome 15775894 K58.9 with constipati on resolvedse nna 8.6 mg po daily (started at rehab)? IBSlinzess 290 mcg q ammonitor with pcp outpt Abnormal weight loss 267 791044 R63.4 weight dropped > 12 lbs in a few days from admitappea rs to be error in initial intake weight10/04 160 lbs which is same as 09/22/23, ? incorrect admit weight but seems stable nowmonitor oupt with pcp Hypertensive disorder 38 766620 I10 stable on below regimen as it comes down to 120s systolic post medication contnorvas c 10 mg qdcoreg 6.25 mg bidlosarta n 100 mg qdmonitor need for increased control outpt with pcp Asthenia 23300031 R53.1 PT OT eval and treat outpt prnmonitor need for increased support in community with pcp Rheumatoid arthritis 698 06925 M06.9 remains onenbrel 50 mg q fridaymoni tor outpt with pcp Coronary arteriosclerosis 89321724 I25.10 hx of MIcoreg 6.25 mg po bidatorvas tatin 20 mg po dailyclopi dogrel 75 mg po q amsee above htn medsmonito r outpt wtih pcp 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 contaripip razole 20 mg dailyvenla faxine 150 mg po dailyprazo sin 6 mg po qhsmelaton in 3 mg po qhshydroxy zine 10 mg po q 8 hours prn anxietyclo nazepam 0.5 mg po q 8 hours prn anxietymon itor outpt with pcp Gastroesop hageal reflux disease 387303339 K21.9 contnexium 40 mg qdmonitor for effect outpt with pcp Recurrent falls 27518188 2 R29.6 reports history of falls with 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 home to help her and balance issuesrepo rts more than 5 falls/year supportive care and therapy here for balance, strengthen ing, gait, mobility, endurance outpt rpnmonitor outpt with pcp 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 995118 E06.3 hx of added to PMHmaintai priscilla onsynthroi d 112 mcg qdmonitor tsh prn with pcp Obesity 129303054 E66.09 dietary evalbaseli ne DMweight to be monitored with pcp outpt Primary insomnia 0343287 F51.01 continueme latoninmon itor need to titrate outpt Acute cystitis 31350592 N30.00 resolved cefpodoxim e to complete courseaysm ptomaticmo nitor for recurrent disease outpt with pcp Health Concerns Section Related Observation LastModified by Organization Detai ls LastModified Time None Recorded Concern Status LastModified by Organization Details LastModified Time None Recorded Advance Directives Directive N: Payers Encounter Date Sequence Insurance Name Policy Number Policy Patten Covered Member ID Patten Member ID Guarantor Name 09/29/2023 1 [facility] - DOS ON OR AFTER 2022 - [place]IC[place]V ANTAGE - PPO) Brandie Luevano [id number] Brandie Luevano 10/02/2023 1 [facility] - DOS ON OR AFTER 2022 - [place]V [place] - [place]PO) Brandie Luevano [id number] Brandie Luevano 10/06/2023 1 [facility] - DOS ON OR AFTER 2022 - [place]V [place] - PPO) Brandie Tanga [id number] Brandie Luevano 10/08/2023 1 [facility] - DOS ON OR AFTER 2022 - [place] - [place]PO) Brandie Luevano [id number] Brandie Luevano 10/09/2023 1 [facility] - DOS ON OR AFTER 2022 - [place]V [place] - [place]PO) Brandie Luevano [id number] Brandie Luevano Notes Date Note Type Note [...] a cane usually Dori Pena, AAKASH [address] [facility] [address], [address], [place], [address], [place] [employer] 09/29/2023 11:09:33 10/02/2023 text/html Pt is seen [...] is sitting up in bed with her [employer] visiting. She has her sling in place [...] a cane usually Dori Pena, AAKASH [address] [facility], [address], [place], [address], [facility] [employer] 10/02/2023 13:48:50 10/06/2023 text/html Pt is seen for a n acute rounding visit. Brandie is working here at [facility] and is feeling good and more mobile lately with left sling in place. She continues with therapy and making gains. She was treated for a UTI when she first came to [facility] and denies any urinary symptoms. 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 While at [facility]:She was treated for a UTI when she first came to [facility] and denies any urinary symptoms. Nursing [...] a cane usually Dori Pena NP [address] [facility], [address], [place], [address], [employer] 10/08/2023 12:05:52 10/09/2023 text/html Pt is seen [...] in a sling for comfort. While at [facility]:She was treated for a UTI when she first came to [facility] and denies any urinary symptoms. 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
--- OUTSIDE RECORDS SUMMARY | 2024-06-15 11:45 | XMS_ITS | Encounter Summary ---
Author Organization [employer] Address [address] [facility] 7t [place] [address] Care Team Providers Care Checkering Machine Adjuster Name Role Phone Pascual Daly MD Primary Care Provide r Fani Heck PharmD Unavailable [phone] Reason for Visit * Reason Onset Date Comments Med Refill 01/13/2024 Encounter Details Date Type Department Care Team ([facility] st Contact Info) Description 01/13/2024 Telephone [facility] 230 [place] [address] Pascual Daly MD 230 [place] [address] Med Refill Social History Tobacco Use Types [...] immediate release tablet To be sent to: [facility] - [place], [place] - [address] [place] [address] documented in this encounter Plan of Treatment Upcoming Encounters Date Type Department Care Team ([facility] st Contact Info) Description 07/22/2024 10:30 AM EDT Clinical Support [facility] MED & PEDS 505 [place] [address] Amanda Fernández RN 505 [place] [address] 08/03/2024 10:00 AM EDT Office Visit [facility] [address] [place] [address] Pascual Daly MD 230 [place] [address] documented as of this encounter Goals Goal [...] documented as of this encounter Care Teams Checkering Machine Adjuster Relationship Specialty Start Date End Date Pascual Daly MD 230 [place] [address] PCP - General Internal Medicine 02/22/14 Fani Heck, PharmD [address] [place] [address] Pharmacist Internal Medicine 12/16/22 documented as of this encounter
--- OUTSIDE RECORDS SUMMARY | 2024-06-15 11:45 | XMS_ITS | Encounter Summary ---
Author Organization [employer] Address 75 [facility] 7t [place] [address] Care Team Providers Care Microstrategy Developer Name Role Phone Pascual Daly MD Primary Care Provide r Fani Heck PharmD Unavailable [phone] Reason for Visit * Reason Comments Med Refill Encounter Details Date Type Department Care Team (Late st Contact Info) Description 07/16/2022 Refill [facility] 230 [place] [address] Pascual Daly MD 230 [place], [place] [phone] Social History Tobacco Use Types Packs/Day Years [...] 07/22/2024 10:30 AM EDT Clinical Support [facility] MED & PEDS 505 [place] [address] Amanda Fernández, RN 505 [place], [place] 08/03/2024 10:00 AM EDT Office Visit [facility] MEDICINE [address] [place] [address] Pascual Daly MD 230 [place] [address] documented as of this encounter Goals Goal [...] documented as of this encounter Care Teams Microstrategy Developer Relationship Specialty Start Date End Date Pascual Daly MD [address] [place] [address] PCP - General Internal Medicine 02/22/14 Fani Heck, PharmD [address] [place] [address] Pharmacist Internal Medicine 12/16/22 documented as of this encounter
--- OUTSIDE RECORDS SUMMARY | 2024-06-15 11:45 | XMS_ITS | Encounter Summary ---
Author Organization [employer] Address 75 [facility] 7t [place] [address] Care Team Providers Care Catalog Library Assistant Name Role Phone Pascual Daly MD Primary Care Provide r Fani Heck PharmD Unavailable [phone] Reason for Visit * Reason Onset Date Comments FYI 12/31/2023 Encounter Details Date Type Department Care Team ([facility] st Contact Info) Description 12/31/2023 Telephone [facility] 230 [place] [address] Pascual Daly MD [address] [place] [address] FYI Social History Tobacco Use Types Packs/Day [...] any questions you can contact Franky at [phone]. documented in this encounter Plan of Treatment Upcoming Encounters Date Type Department Care Team ([facility] st Contact Info) Description 07/22/2024 10:30 AM EDT Clinical Support [facility] MED & PEDS 505 [place] [address] Amanda Fernández, AALIYAH 505 [place] [address] 08/03/2024 10:00 AM EDT Office Visit [facility] 230 [place] [address] Pascual Daly MD [address] [place] [address] documented as of this encounter Goals Goal [...] documented as of this encounter Care Teams Catalog Library Assistant Relationship Specialty Start Date End Date Pascual Daly MD 230 [place] [address] PCP - General Internal Medicine 02/22/14 Fani Heck, PharmD 230 [place] [address] Pharmacist Internal Medicine 12/16/22 documented as of this encounter
--- OUTSIDE RECORDS SUMMARY | 2024-06-15 11:45 | XMS_ITS | Encounter Summary ---
Author Organization [employer] Address 75 [facility] 7t [place] [address] Care Team Providers Care Transport Aide Name Role Phone Pascual Daly MD Primary Care Provide r Fani Heck PharmD Unavailable [phone] Encounter Details Date Type Department Care Team ([facility] st Contact Info) Description 09/25/2023 Telephone [facility] 230 [place] [address] Pascual Daly MD 230 [place] [address] Social History Tobacco Use Types Packs/Day Years [...] [facility] 505 [place] [address] Amanda Fernández, RN 505 [place] [address] 08/03/2024 10:00 AM EDT Office Visit [facility] [address] [place] [address] Pascual Daly MD [address] [place] [address] documented as of this encounter Goals Goal Patient Goal Type Associated Problems Recent Progress Patient-Stated? Author Blood Pressure < 140/90 Blood Pressure 133/70( 025 11:28 AM EST) No Fani Heck, PharmD documented as of this encounter Visit Diagnoses Diagnosis Type 2 diabetes mellitus without complication, with long-term current use of insulin ([facility]) documented in this encounter Additional Health Concerns Assessment Noted Time PHQ-9 Depression Total Score: 11 024 10:24 AM EST documented as of this encounter Care Teams Transport Aide Relationship Specialty Start Date End Date Pascual Daly MD [address] [place] [address] PCP - General Internal Medicine 02/22/14 Fain Heck, KristiD [address] [place] [address] Pharmacist Internal Medicine 12/16/22 documented as of this encounter
--- OUTSIDE RECORDS SUMMARY | 2024-06-15 11:45 | XMS_ITS | Encounter Summary ---
Author Organization [employer] Address 75 [facility] 7t [place] [address] Care Team Providers Care Winch Derrick Operator Name Role Phone Pascual Daly MD Primary Care Provide r Fani Heck PharmD Unavailable [phone] Reason for Visit * Reason Comments Med Refill Encounter Details Date Type Department Care Team (Late st Contact Info) Description 09/26/2023 Refill [facility] MEDICINE 230 [place] [address] Pascual Daly MD 230 [place], [place] [phone] Social History Tobacco Use Types Packs/Day Years [...] 10:30 AM EDT Clinical Support [facility] CH[facility] MED & PEDS 505 [place] [address] Amanda Fernández, AALIYAH 505 [place] [address] 08/03/2024 10:00 AM EDT Office Visit [facility] MEDICINE 230 [place] [address] Pascual Daly MD [address] [place] [address] documented as of this encounter Goals Goal [...] documented as of this encounter Care Teams Winch Derrick Operator Relationship Specialty Start Date End Date Pascual Daly MD 230 [place] [address] PCP - General Internal Medicine 02/22/14 Fani Heck, Woody [address] [place] [address] Pharmacist Internal Medicine 12/16/22 documented as of this encounter
--- OUTSIDE RECORDS SUMMARY | 2024-06-15 11:46 | XMS_ITS | Encounter Summary ---
Author Organization [employer] Address [address] [facility] 7t [place] [address] Care Team Providers Care Staker Surveying Name Role Phone Pascual Daly MD Primary Care Provide r Fani Heck PharmD Unavailable [phone] Reason for Visit * Reason Comments Med Refill Encounter Details Date Type Department Care Team (Late st Contact Info) Description 05/24/2024 Refill [facility] MED[facility]INE 230 [place] [address] Pascual Daly MD 230 [place], [place] [phone] Benign hypertension Social History Tobacco Use Types [...] Description 07/22/2024 10:30 AM EDT Clinical Support [facility] MED & PEDS 505 [place] [address] Amanda Fernández, AALIYAH 505 [place] [address] 08/03/2024 10:00 AM EDT Office Visit [facility] MEDICINE [address] [place] [address] Pascual Daly MD [address] [place] [address] documented as of this encounter Goals Goal [...] documented as of this encounter Care Teams Staker Surveying Relationship Specialty Start Date End Date Pascual Daly MD [address] [place] [address] PCP - General Internal Medicine 02/22/14 Fani Heck, KristiD [address] [place] [address] Pharmacist Internal Medicine 12/16/22 documented as of this encounter
--- OUTSIDE RECORDS SUMMARY | 2024-06-15 11:46 | XMS_ITS | Encounter Summary ---
Author Organization [employer] Address 75 [facility] 7t [place] [address] Care Team Providers Care Emblem Maker Name Role Phone Pascual Daly MD Primary Care Provide r Fani Heck PharmD Unavailable [phone] Reason for Visit * Reason Onset Date Comments FYI 11/06/2023 Encounter Details Date Type Department Care Team ([facility] st Contact Info) Description 11/06/2023 Telephone [facility] 230 [place] [address] Pascual Daly MD 230 [place] [address] FYI Social History Tobacco Use Types Packs/Day [...] - 11/06/2023 4:39 PM EDT Tc from [facility] Iker CORDERO PT informing pt has started services For PT 11/06/23 documented in this encounter Plan of Treatment Upcoming Encounters Date Type Department Care Team (Late st Contact Info) Description 07/22/2024 10:30 AM EDT Clinical Support [facility] MED & PEDS 505 [place] [address] Amanda Fernández RN 505 [place] [address] 08/03/2024 10:00 AM EDT Office Visit [facility] MED[facility] 230 [place] [address] Pascual Daly MD 230 [place] [address] documented as of this encounter Goals Goal [...] documented as of this encounter Care Teams Emblem Maker Relationship Specialty Start Date End Date Pascual Daly MD 230 [place] [address] PCP - General Internal Medicine 02/22/14 Fani Heck, PharmD 230 [place] [address] Pharmacist Internal Medicine 12/16/22 documented as of this encounter
--- OUTSIDE RECORDS SUMMARY | 2024-06-15 11:46 | XMS_ITS | Encounter Summary ---
Author Organization [employer] Address 75 [facility] 7t [place] [address] Care Team Providers Care Faculty Support Coordinator Name Role Phone Pascual Daly MD Primary Care Provide r Fani Heck PharmD Unavailable [phone] Reason for Visit * Reason Onset Date Comments FYI 12/11/2023 Durable Medical Equipment 12/11/2023 Encounter Details Date Type Department Care Team (Late st Contact Info) Description 12/11/2023 Telephone [facility] 230 [place], [place] [phone] Pascual Daly MD 230 [place], [place] [phone] FYI ; Durable Medical Equipment Social History [...] two DME scripts to be sent to [facility] which: [facility] bed Please fax over to [phone] documented in this encounter Plan of Treatment Upcoming Encounters Date Type Department Care Team (Late st Contact Info) Description 07/22/2024 10:30 AM EDT Clinical Support [facility] MED & PEDS 505 [place] [address] Amanda Fernández RN 505 [place] [address] 08/03/2024 10:00 AM EDT Office Visit [facility] 230 [place] [address] Pascual Daly MD 230 [place] [address] documented as of this encounter Goals Goal [...] documented as of this encounter Care Teams Faculty Support Coordinator Relationship Specialty Start Date End Date Pascual Daly MD 230 [place] [address] PCP - General Internal Medicine 02/22/14 Fani Heck, KristiD [address] [place] [address] Pharmacist Internal Medicine 12/16/22 documented as of this encounter
--- OUTSIDE RECORDS SUMMARY | 2024-06-15 11:46 | XMS_ITS | Encounter Summary ---
Author Organization [employer] Address 75 [facility] 7t [place] [address] Care Team Providers Care Medical Claims Processor Name Role Phone Pascual Daly MD Primary Care Provide r Fani Heck PharmD Unavailable [phone] Encounter Details Date Type Department Care Team (Late st Contact Info) Description 03/13/2022 Abstract [facility] MEDICINE [address] [place] [address] ProviderBill MD Social History Tobacco Use Types [...] Description 07/22/2024 10:30 AM EDT Clinical Support [facility] MED & PEDS 505 [place] [address] Amanda Fernández, AALIYAH 505 [place] [address] 08/03/2024 10:00 AM EDT Office Visit [facility] 230 [place] [address] Pascual Daly MD [address] [place], [place] [phone] documented as of this encounter Visit Diagnoses Not on filedocumented in this encounter Care Teams Medical Claims Processor Relationship Specialty Start Date End Date Pascual Daly MD 230 [place] [address] PCP - General Internal Medicine 02/22/14 Fani Heck PharmD [address] [place] [address] Pharmacist Internal Medicine 12/16/22 documented as of this encounter
--- OUTSIDE RECORDS SUMMARY | 2024-06-15 11:46 | XMS_ITS | Encounter Summary ---
Author Organization [employer] Address [address] [facility] [address] 7t [place] [address] Care Team Providers Care Wash Worker Name Role Phone Pascual Daly MD Primary Care Provide r Fani Heck PharmD Unavailable [phone] Reason for Visit * Reason Comments Med Refill Encounter Details Date Type Department Care Team (Late st Contact Info) Description 10/21/2023 Refill [facility] MEDICINE 230 [place] [address] Titi Gray FNP Major depressive disorder with [...] Upcoming Encounters Date Type Department Care Team ([facility] st Contact Info) Description 07/22/2024 10:30 AM EDT Clinical Support [facility] CHC MED & PEDS 505 [place] [address] Amanda Fernández RN 505 [place] [address] 08/03/2024 10:00 AM EDT Office Visit [facility] MEDICINE [address] [place] [address] Pascual Daly MD [address] [place] [address] documented as of this encounter Goals Goal [...] documented as of this encounter Care Teams Wash Worker Relationship Specialty Start Date End Date Pascual Daly MD [address] [place] [address] PCP - General Internal Medicine 02/22/14 Fani Heck, PharmD [address] [place] [address] Pharmacist Internal Medicine 12/16/22 documented as of this encounter
--- OUTSIDE RECORDS SUMMARY | 2024-06-15 11:46 | XMS_ITS | Encounter Summary ---
Author Organization [employer] Address 75 [facility] 7t [place] [address] Care Team Providers Care Still Worker Helper Name Role Phone Pascual Daly MD Primary Care Provide r Fani Heck PharmD Unavailable [phone] Encounter Details Date Type Department Care Team [...] [facility] 505 [place], [place] [phone] Amanda Fernández, AALIYAH 505 [place] [address] 08/03/2024 10:00 AM EDT Office Visit [facility] MEDICINE 230 [place] [address] Pascual Daly MD [address] [place] [address] documented as of this encounter Goals Goal [...] Whole Blood 121(H) 60 - 115 mg/dL [facility] Comment:METER #: [id number] 5Testing performed in the Endocrinology Department [address] , [address], [facility]. 06/04/2024 11:1 4 AM EST 06/04/2024 11:19 AM EST us Generic External Data Provider LAB BLOOD ORDERAB LES Final Result [facility] [address] [place] [address] [phone] documented in this encounter Visit Diagnoses Not on filedocumented in this encounter Additional Health Concerns Assessment Noted Time PHQ-9 Depression Total Score: 9 01/29/20 24 11:00 AM EDT documented as of this encounter Care Teams Still Worker Helper Relationship Specialty Start Date End Date Pascual Daly MD [address] [place] [address] PCP - General Internal Medicine 02/22/14 Fani Heck PharmD [address] [place] [address] Pharmacist Internal Medicine 12/16/22 documented as of this encounter
--- OUTSIDE RECORDS SUMMARY | 2024-06-15 11:46 | XMS_ITS | Encounter Summary ---
Author Organization [employer] Address 75 [facility] 7t [place] [address] Care Team Providers Care Investigator Internal Affairs Name Role Phone Pascual Daly MD Primary Care Provide r Fani Heck PharmD Unavailable [phone] Encounter Details Date Type Department Care Team (Late st Contact Info) Description 03/11/2022 Abstract [facility] MEDICINE [address] [place] [phone] Fani Heck, PharmD [address] [place] [address] Social History Tobacco Use Types Packs/Day Years [...] 07/22/2024 10:30 AM EDT Clinical Support [facility] CHC MED & PEDS [address] [place] [address] Amanda Fernández, AALIYAH [address] [place] [address] 08/03/2024 10:00 AM EDT Office Visit [facility] MEDICINE [address] [place] [address] Pascual Daly MD [address] [place] [phone] documented as of this encounter Visit Diagnoses Not on filedocumented in this encounter Care Teams Investigator Internal Affairs Relationship Specialty Start Date End Date Pascual Daly MD [address] [place] [address] [phone] PCP - General Internal Medicine 02/22/14 Fani Heck, KristiD [address] [place] [address] [phone] Pharmacist Internal Medicine 12/16/22 documented as of this encounter
--- OUTSIDE RECORDS SUMMARY | 2024-06-15 11:46 | XMS_ITS | Clinical Summary ---
Author Organization [employer] Address 75 [facility] 7t [place] [address] Care Team Providers Care Sales And Production Manager Name Role Phone Pacsual Daly MD Primary Care Provide r Fani Heck PharmD Unavailable [phone] Allergies Active Allergy Reactions Criticality Noted Date [...] and at bedtime for anxiety. 90 tablet 024 Active levothyroxine (Synthroid, Levoxyl) 112 MCG tablet Take 112 mcg by mouth Once per day. Active venlafaxine XR (Effexor XR) 150 MG 24 hr capsuleIndicati ons:Major depressive disorder with psychotic features (CMS/HCC) Take 1 capsule (150 mg) by mouth in the morning. Do not crush or chew. 90 capsule 1 024 Active gabapentin (Neurontin) 100 MG capsuleIndicati ons:Pain TAKE 1 CAPSULE TWICE DAILY IN THE MORNING AND AT BEDTIME 180 capsule 1 024 Active Continuous Glucose Sensor (Dexcom G7 Sensor) misc DIRECTED Active Actemra ACTPen 162 MG/0.9ML solution auto-injector Inject as directed (likely every other week; verify dose with patient or pharmacy) Active albuterol (Ventolin HFA) 108 (90 Base) MCG/ACT inhalerIndicati ons:Mild intermittent asthma without complication INHALE 2 PUFFS BY MOUTH EVERY 4 TO 6 HOURS NEEDED 18 g 1 025 Active losartan (Cozaar) 100 MG tabletIndicatio [...] MOUTH EVERY EVENING 90 tablet 025 Active oxyCODONE (Roxicodone) 5 MG immediate release tabletIndicatio ns:Fibromyalgia Take 1 tablet (5 mg) by mouth every 12 (twelve) hours if needed for severe pain. 56 tablet 025 Active losartan (Cozaar) 100 MG tabletIndicatio ns:Benign hypertension TAKE 1 TABLET BY MOUTH EVERY MORNING 90 tablet 1 024 2024 Discontinued atorvastatin (Lipitor) 20 MG tabletIndicatio ns:Type 2 diabetes mellitus without complication, with long-term current use of insulin ([facility]) TAKE 1 TABLET BY MOUTH EVERY MORNING 90 tablet 024 2024 Discontinued amLODIPine (Norvasc) 10 MG tabletIndicatio ns:Benign hypertension TAKE 1 TABLET BY MOUTH EVERY EVENING 90 tablet 024 2024 Discontinued chlorhexidine (Peridex) 0.12 % solution Use 15 mL in the mouth or throat if needed (for mouthwash 15 ml for 30 seconds, swish and spit) for up to 14 days. 120 mL 025 2024 oxyCODONE (Roxicodone) 5 MG immediate release tabletIndicatio ns:Fibromyalgia TAKE 1 TABLET BY MOUTH EVERY TWELVE HOURS NEEDED FOR SEVERE PAIN 56 tablet 025 2024 Discontinued(R eorder (will not trigger notification to Pharmacy)) Active Problems Problem Noted Date Diagnosed Date Hospital discharge follow-up 10/21/2023 Assessment & Plan (10/21/2023 10:15 AM EDT): Patient admitted to [facility]23 after she presented to [place] emergency room due to left-sided chest discomfort as per patient she was visiting family in [place], on August 26 she turned in high [...] (08/27/2022 10:19 AM EDT): followed by a accounts payable coordinator. 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 - Follow-up in [facility] in November. Repeat BMP and A1c prior [...] the care of Endocrinology office Vashti Glass ROD DRAWER, last seen 03/17/2024 and follows with RN [...] f/u She is under the care of Supervisor Quality Control Dr Sprague, last seen 12/31/2023 On a [...] f/u She is under the care of Supervisor Quality Control Dr Sprague, last seen 10/16/2023 On a [...] f/u She is under the care of Supervisor Quality Control Dr Sprague, has a follow up with [...] f/u She is under the care of Supervisor Quality Control Dr Sprague, has a follow up at [...] was referred to Dr. Manjinder Gonsales at [facility] as her medical insurance recommended this [...] factors. LDL-C is now calculated using the [facility] calculation, which is a validated novel method providing better accuracy than the Friedewald equation in the estimation of LDL-C. Melquiades WALLACE et al. TEN. 2013;310(75): 0873-9520 (http://education.InfoDif/faq/QVL080) Chol/HDLC Ratio <5.0 (calc) 4.2 3.7 2.5 [...] Encounters Date Type Department Care Team Description 06/15/2024 Orders Only GENERIC EXTERNAL DATA DEPARTMENT Provider, Generic External Data 06/10/2024 Refill [facility] MEDICINE [address], [place] [address] Pascual Daly MD Fibromyalgia 06/04/2024 Orders Only GENERIC EXTERNAL DATA DEPARTMENT Provider, Generic External Data 05/31/2024 Refill [facility] MEDICINE [address], [place] [address] Nikia Jeter MD Type 2 diabetes mellitus without complication, with long-term current use of insulin ([facility]); Benign hypertension 05/24/2024 Refill [facility] MEDICINE [address], [place] [address] Pascual Daly MD Benign hypertension 05/18/2024 Orders Only GENERIC EXTERNAL DATA DEPARTMENT Provider, Generic External Data 05/13/2024 Telephone [facility] MEDICINE [address], [place] [address] Pascual Daly MD Med Refill 05/13/2024 Refill [facility] MEDICINE [address], [place] [address] Pascual Daly MD Fibromyalgia 05/05/2024 11:30 AM EST Office Visit [facility] ADULT DENTAL [address], [place] [address] Ammy Owen, DDS Aphthous ulcer (Primary Dx) 05/04/2024 10:15 AM EST Office Visit [facility] MEDICINE [address], [place] [address] Pascual Daly MD Type 2 diabetes mellitus without complication, with long-term current use of insulin ([facility]) (Primary Dx); Primary hypertension; Mixed hyperlipidemia; Recurrent falls 05/04/2024 Travel 04/27/2024 9:30 AM EST Clinical Support [facility] MED & PEDS [address] [place] [address] Amanda Fernández RN Closed fracture of multiple ribs of left side with routine healing 04/27/2024 Travel 04/22/2024 Refill [facility] MEDICINE [address] [place] [address] Pascual Daly MD Mild intermittent asthma without complication 04/19/2024 Telephone [facility] MEDICINE [address] [place] [address] Pascual Daly MD Chart Prep 04/08/2024 Refill [facility] MEDICINE [address] [place] [address] Pascual Daly MD Fibromyalgia 03/17/2024 Orders Only GENERIC EXTERNAL DATA DEPARTMENT Provider, Generic External Data 03/16/2024 Refill [facility] MED & PEDS [address] [place] [address] Amanda Fernández RN Fibromyalgia 03/15/2024 Refill [facility] MED & PEDS [address] [place] [address] Amanda Fernández, AALIYAH Fibromyalgia from Last 3 Months Immunizations Name Administration [...] 10:30 AM EDT Clinical Support [facility] CHC MED & PEDS [address] [place] [address] Amanda Fernández, AALIYAH [address] [place] [address] 08/03/2024 10:00 AM EDT Office Visit [facility] MEDICINE [address] [place] [address] Pascual Daly MD [address] [place] [address] Health Maintenance Due Date Last Done Comments [...] Associated Diagnosis Comments GLUCOSE, WHOLE BLOOD Routine 06/15/2024 10:16 AM EST GLUCOSE, WHOLE BLOOD Routine 06/04/2024 11:14 AM [...] complication, with long-term current use of insulin ([facility]) POCT GLYCATED HEMOGLOBIN, TOTAL Routine 05/04/2024 10:16 AM EST Type 2 diabetes mellitus without complication, with long-term current use of insulin ([facility]) POCT HEATHER-14 URINE DRUG SCREEN Routine 04/27/2024 [...] Recently Relevant to Health Maintenance Results * Glucose, Whole Blood (06/15/2024 10:16 AM EST) Only the most recent of4 resultswithin the time period is included. Pathologist [facility] Glucose, Whole Blood 105 60 - 115 mg/dL [facility] Comment:METER #: [id number] Testing performed in the Endocrinology Department [address] , [address], [facility]. 06/15/2024 10:1 6 AM EST 06/15/2024 10:21 AM EST us Generic External Data Provider LAB BLOOD ORDERAB LES Final Result Performing Organization Address City/State/[facility] Co de Phone Number [facility] [address] [place] [phone] * (ABNORMAL) POCT HGB A1C (05/04/2024 10:16 AM EST) Pathologist [facility] Hemoglobin A1C 8.9(A) 4.0 - 6.0 % QC Media Lot # [id number] Lot# Expiration Date ,[id number] Blood 05/04/2024 10:1 6 AM EST us Pascual Terry MD POINT OF CARE TEST ENTER/EDIT ORDERABLES Edited Result - Final * (ABNORMAL) POCT Glucose (05/04/2024 10:16 AM EST) Glucose Blood, POC 270(A) 60 - 200 mg/dL QC Media Lot # [id number] Lot# Expiration Date [id number] Blood Capillary blood specimen / Unknown 05/04/2024 10:16 AM EST us Pascual Terry MD POINT OF CARE TEST EN TER/EDIT ORDERABLES Final Result * POCT HEATHER-14 Urine Drug Screen (04/27/2024 9:44 AM EST) Oxycodone Screen, Urine Positive Urine Urine specimen obtained by clean catch procedure / Unknown 04/27/2024 9:44 AM EST Narrative Amanda Fernández RN - 04/27/2024 9:44 AM EST Lot# [id number] Exp: 03-27-25 Pascual Terry MD POINT OF CARE TEST EN TER/EDIT ORDERABLES Final Result * (ABNORMAL) Lipid Panel, Standard (10/31/2023 10:42 AM EDT) Triglycerides 74 <150 mg/dL [facility] Comment:Desirable Triglyceri de: less than 150 mg/dLBorderline High Triglyceride 150-199 mg/dLHigh Triglyceride: 200-499 mg/dLVery High Triglyceride: greater than or equal to 5OO mg/dL Cholesterol 95 <200 mg/dL [facility] Comment:Desirable Cholestero l: less than 200 mg/dLBorderline High Cholesterol: 200-239 mg/dLHigh Cholesterol: greater than 239 mg/dL LDL Cholesterol Calculated 43 <100 mg/dL [facility] Comment:Desirable LDL: less than 100 mg/dLNear Optimal/Above Optimal LDL: 110- 129 mg/dLBorderline High LDL: 130-159 mg/dLHigh LDL: 160-189 mg/dLVery High LDL: greater than or equal to 190 mg/dL HDL Cholesterol 38(L) >40 mg/dL [facility] Comment:Desirable HDL: great er than 40 mg/dL Note: This HDL assay may give artificially low results in patients with liver disease. 10/31/2023 10:4 2 AM EDT 10/31/2023 10:42 AM EDT Generic External Data Provider LAB BLOOD ORDERAB LES Final Result Performing Organization Address [facility] de Phone Number [facility] [address] [place] [phone] [phone] * (ABNORMAL) Albumin, Random Urine W/Creatinine (07/02/2023 10:06 AM EDT) Creatinine, Urine 163.81 mg/dL [facility] Microalbumin Urine 59.0 mg/L [facility] Microalbum Creatinine Ratio Ur 36.0(H) <30 ug/mg cr [facility] Comment:Albumin/Creatinine R atio Reference Ranges: Normal: < 30 ug/mg creatinine Microalbuminuria: 30 - 300 ug/mg creatinineClinical Albuminuria: > 300 ug/mg creatinine 07/02/2023 10:0 6 AM EDT 07/02/2023 11:41 AM EDT Generic External Data Provider LAB URINE ORDERAB LES Final Result Performing Organization Address [facility] Co de Phone Number [facility] [address] [place] [phone] * BI Mammogram Screening Tomosynthesis Bilateral (06/05/2023 11:00 AM EST) Anatomical Region Laterality Modality Breast Bilateral Mammography 06/05/2023 11:0 0 AM EST Narrative 07/01/2023 11:45 AM EDT ? [facility] [place] ? [address] ?[place] [address] ? Mammography Report ? Signed ? Patient: Max,Brandie ?MR#: [id number] ? : 1950 ?Acct:[id number] ? Age/Sex: 73 / F ?ADM Date: 02/15/24 ? Loc: HO.MAMMO ? Attending Dr: Briseida Rocha MD ? Ordering Physician: Briseida Rocha MD ?Results: 1Negat ?? juaquin ? Date of Service: 06/05/23 ?Follow Up: 1 Year From Orig ?? inal Mammogram ? Procedure(s): MM tomosynthesis screening BI ?? Accession Number(s): [id number] ? cc: Pascual Darnell MD; Briseida Rocha [...] 1141 ? DD/ 1100 ? TD/TT: ? Scaffold Worker: ? Procedure Note Donallegrater, Image - 07/01/2023 [facility] [address] [place] [address] Mammography Report Signed Patient: Dino Santana#: [id number] : 1950Acct:[id number] Age/Sex: 73 / FADM Date: 06/05/23 Loc: HO.MAMMO Attending Dr: Briseida Rocha MD Ordering Physician: Briseida Rocha MDResults: 1Negat juaquin Date of Service: 06/05/23Follow Up: 1 Year From Orig inal Mammogram Procedure(s): MM tomosynthesis screening BI Accession Number(s): [id number] cc: Pascual Darnell MD; Briseida Rocha MD [...] in OV> 07/01/23 1141 DD/ 1100 TD/TT: Scaffold Worker: [facility] External Provider IMG BI PROCEDURES Final Result * Hepatitis C Viral RNA, Genotype, LiPA (01/15/2023 11:08 AM EDT) Hepatitis C Genotype Not Detected [facility] Comment: Genotype not detected due [...] characteristics of thisassay have been determined by [employer], [place], [place]. ??The modificationshave not been cleared or approved by the FDA. ??Thisassay has been validated pursuant to the CLIAregulations and is used for clinical purposes.For additional information, please refer tohttp://education.Pocits.PLASTIQ/faq/HCVGenotyping(This link is being provided for informational/educational purposes only.)THIS TEST WAS PERFORMED AT:[id number] [place] [address]ZBKUTQVJOHN CORDON MD,PHD 01/15/2023 11:0 8 AM EDT 01/15/2023 11:08 AM EDT [facility] External Provider LAB BLO OD ORDERABLES Final Result [facility] [address] [place] [phone] * Hm Colonoscopy (03/20/2018) Colonoscopy Normal Normal 03/20/2018 Sondra Felix - 03/20/2018 9:09 AM EST Recommended 10 year follow up us Historical Provider HEALTH MAINTENANCE Edited Result - Final from Last 3 Months or Most Recently Relevant to Health Maintenance Insurance [facility] - [facility]CO DENTAL - [facility] Care Teams Sales And Production Manager Relationship Specialty Start Date End Date Pascual Daly MD [address] [place] [address] PCP - General Internal Medicine 02/22/14 Fani Heck, KristiD [address] [place] [address] Pharmacist Internal Medicine 12/16/22
--- OUTSIDE RECORDS SUMMARY | 2024-06-15 11:46 | XMS_ITS | Encounter Summary ---
Author Organization [employer] Address 75 [facility] 7t [place] [address] Care Team Providers Care Clearing Hand Name Role Phone Pascual Daly MD Primary Care Provide r Fani Heck PharmD Unavailable [phone] Encounter Details Date Type Department Care Team [...] [facility] MED [facility] [address] [place], [place] [phone] Amanda Fernández, AALIYAH [address] [place] [address] 08/03/2024 10:00 AM EDT Office Visit [facility] MEDICINE [address] [place] [address] Pascual Daly MD [address] [place] [address] documented as of this encounter Goals Goal [...] Whole Blood 260(H) 60 - 115 mg/dL [facility] Comment:METER #: [id number] Testing performed in the Endocrinology Department [address] , [address], [facility]. 05/18/2024 10:1 7 AM EST 05/18/2024 10:22 AM EST us Generic External Data Provider LAB BLOOD ORDERAB LES Final Result [facility] [address] [place] [address] [phone] documented in this encounter Visit Diagnoses Not on filedocumented in this encounter Additional Health Concerns Assessment Noted Time PHQ-9 Depression Total Score: 9 01/29/20 24 11:00 AM EDT documented as of this encounter Care Teams Clearing Hand Relationship Specialty Start Date End Date Pascual Daly MD [address] [place] [address] PCP - General Internal Medicine 02/22/14 Fani Heck PharmD [address] [place] [address] Pharmacist Internal Medicine 12/16/22 documented as of this encounter
--- OUTSIDE RECORDS SUMMARY | 2024-06-15 11:46 | XMS_ITS | Encounter Summary ---
Author Organization [employer] Address 75 [facility] 7t [place] [address] Care Team Providers Care Gwot Ia/[employer] Intelligence Support Name Role Phone Pascual Daly MD Primary Care Provide r Fani Heck PharmD Unavailable [phone] Reason for Visit * Reason Comments Med Refill Encounter Details Date Type Department Care Team (Late st Contact Info) Description 05/31/2024 Refill [facility] MEDICINE [address] [place] [address] Nikia Jeter MD [address] [place] [address] Type 2 diabetes mellitus without complication, with long-term current use of insulin ([facility]); Benign hypertension Social History Tobacco Use Types [...] [facility] PEDS [address] [place] [address] Amanda Fernández, AALIYAH [address] [place] [address] 08/03/2024 10:00 AM EDT Office Visit [facility] MEDICINE [address] [place] [address] Pascual Daly MD [address] [place] [address] documented as of this encounter Goals Goal Patient Goal Type Associated Problems Recent Progress Patient-Stated? Author Blood Pressure < 140/90 Blood Pressure 133/70( 025 11:28 AM EST) No Fani Heck, KristiD documented as of this encounter Visit Diagnoses Diagnosis Type 2 diabetes mellitus without complication, with long-term current use of insulin ([facility]) Benign hypertension Essential hypertension, benign documented in this encounter Additional Health Concerns Assessment Noted Time PHQ-9 Depression Total Score: 9 01/29/20 24 11:00 AM EDT documented as of this encounter Care Teams Gwot Ia/[employer] Intelligence Support Relationship Specialty Start Date End Date Farfan Harrison, Pascual, MD [address] [place] [address] PCP - General Internal Medicine 02/22/14 Fani Heck PharmD [address] [place] [address] Pharmacist Internal Medicine 12/16/22 documented as of this encounter
--- OUTSIDE RECORDS SUMMARY | 2024-06-15 11:46 | XMS_ITS | Encounter Summary ---
Author Organization [employer] Address 75 [facility] 7t [place] [address] Care Team Providers Care Covered Buckle Assembler Name Role Phone Pascual Daly MD Primary Care Provide r Fani Heck PharmD Unavailable [phone] Encounter Details Date Type Department Care Team (Late st Contact Info) Description 06/15/2024 Orders Only GENERIC EXTERNAL DATA [...] [facility] MED [facility] [address] [place], [place] [phone] Amanda Fernández, AALIYAH [address] [place] [address] 08/03/2024 10:00 AM EDT Office Visit [facility] MEDICINE [address] [place] [address] Pascual Daly MD [address] [place] [address] documented as of this encounter Goals Goal Patient Goal Type Associated Problems Recent Progress Patient-Stated? Author Blood Pressure < 140/90 Blood Pressure 133/70( 025 11:28 AM EST) No Fani Heck, KristiD documented as of this encounter Procedures Procedure Name Priority Date/Time Associated Diagnosis Comments GLUCOSE, WHOLE BLOOD Routine 06/15/2024 10:16 AM EST documented in this encounter Results * Glucose, Whole Blood (06/15/2024 10:16 AM EST) Glucose, Whole Blood 105 60 - 115 mg/dL [facility] Comment:METER #: [id number] Testing performed in the Endocrinology Department [address] , [address], [facility]. 06/15/2024 10:1 6 AM EST 06/15/2024 10:21 AM EST us Generic External Data Provider LAB BLOOD ORDERAB LES Final Result [facility] [address] [place] [address] [phone] documented in this encounter Visit Diagnoses Not on filedocumented in this encounter Additional Health Concerns Assessment Noted Time PHQ-9 Depression Total Score: 9 01/29/20 24 11:00 AM EDT documented as of this encounter Care Teams Covered Buckle Assembler Relationship Specialty Start Date End Date Pascual Daly MD [address] [place] [address] PCP - General Internal Medicine 02/22/14 Fani Heck, Woody [address] [place] [address] Pharmacist Internal Medicine 12/16/22 documented as of this encounter
--- OUTSIDE RECORDS SUMMARY | 2024-06-15 11:46 | XMS_ITS | Encounter Summary ---
Author Organization [employer] Address 75 [facility] 7t [place] [address] Care Team Providers Care New Business Clerk Name Role Phone Pascual Daly MD Primary Care Provide r Fani Heck PharmD Unavailable [phone] Reason for Visit * Reason Onset Date Comments Med Refill 12/15/2023 Encounter Details Date Type Department Care Team ([facility] st Contact Info) Description 12/15/2023 Telephone [facility] MEDICINE [address] [place] [address] Pascual Daly MD [address] [place] [address] Med Refill Social History Tobacco Use Types [...] immediate release tablet To be sent to: [facility] - [place], [place] - [address] [place] [address] documented in this encounter Plan of Treatment Upcoming Encounters Date Type Department Care Team ([facility] st Contact Info) Description 07/22/2024 10:30 AM EDT Clinical Support [facility] CHC MED & PEDS [address] [place] [address] Amanda Fernández RN [address] [place] [address] 08/03/2024 10:00 AM EDT Office Visit [facility] MEDICINE [address] [place] [address] Pascual Daly MD [address] [place] [address] documented as of this encounter Goals Goal [...] documented as of this encounter Care Teams New Business Clerk Relationship Specialty Start Date End Date Pascual Daly MD [address] [place] [address] PCP - General Internal Medicine 02/22/14 Fani Heck, PharmD [address] [place] [address] Pharmacist Internal Medicine 12/16/22 documented as of this encounter
--- OUTSIDE RECORDS SUMMARY | 2024-06-15 11:46 | XMS_ITS | Encounter Summary ---
Author Organization [employer] Address 75 [facility] 7t [place] [address] Care Team Providers Care Photogrammetry Airplane Pilot Name Role Phone Pascual Daly MD Primary Care Provide r Fani Heck PharmD Unavailable [phone] Encounter Details Date Type Department Care Team (Late st Contact Info) Description 03/11/2022 Abstract [facility] MEDICINE [address] [place] [address] Pascual Daly MD 230 [place] [address] Social History Tobacco Use Types Packs/Day Years [...] 07/22/2024 10:30 AM EDT Clinical Support [facility] MED & PEDS 505 [place], [place] [phone] Amanda Fernández, AALIYAH 505 [place] [address] 08/03/2024 10:00 AM EDT Office Visit [facility] MEDICINE [address] [place] [address] Pascual Daly MD [address] [place] [address] documented as of this encounter Visit Diagnoses Not on filedocumented in this encounter Care Teams Photogrammetry Airplane Pilot Relationship Specialty Start Date End Date Pascual Daly MD [address] [place] [address] [phone] PCP - General Internal Medicine 02/22/14 Fani Heck PharmD [address] [place] [address] [phone] Pharmacist Internal Medicine 12/16/22 documented as of this encounter
--- OUTSIDE RECORDS SUMMARY | 2024-06-15 11:46 | XMS_ITS | Encounter Summary ---
Author Organization [employer] Address 75 [facility] 7t [place] [address] Care Team Providers Care Utility Bagger Name Role Phone Pascual Daly MD Primary Care Provide r Fani Heck PharmD Unavailable [phone] Encounter Details Date Type Department Care Team (Late st Contact Info) Description 05/29/2022 Abstract [facility] MEDICINE 230 [place] [address] Pascual Daly MD 230 [place] [address] Social History Tobacco Use Types Packs/Day Years [...] 10:30 AM EDT Clinical Support [facility] CHC MED & PEDS [address] [place] [address] Amanda Fernández, RN [address] [email or web address] [place], [place] 08/03/2024 10:00 AM EDT Office Visit [facility] MEDICINE 230 [facility] [place] [address] Pascual Daly MD 230 [facility] [place] [address] documented as of this encounter Goals Goal [...] documented as of this encounter Care Teams Utility Bagger Relationship Specialty Start Date End Date Pascual Daly MD 230 [facility] [place] [address] PCP - General Internal Medicine 02/22/14 Fani Heck PharmD [facility] [place] [address] Pharmacist Internal Medicine 12/16/22 documented as of this encounter
--- OUTSIDE RECORDS SUMMARY | 2024-06-15 11:46 | XMS_ITS | Encounter Summary ---
Author Organization [employer] Address 75 [facility] 7t [place] [address] Care Team Providers Care Drawing Checker Name Role Phone Pascual Daly MD Primary Care Provide r Fani Heck PharmD Unavailable [phone] Encounter Details Date Type Department Care Team (Latest Contact Info) Description 05/26/2019 Abstract [facility] CONVERSIONS Dental, Provider, DDS Social History Tobacco [...] Description 07/22/2024 10:30 AM EDT Clinical Support [facility] CHC MED & PEDS 505 [place] [address] mAanda Fernández, AALIYAH 505 [place] [address] 08/03/2024 10:00 AM EDT Office Visit [facility] MEDICINE 230 [place], [place] [phone] Pascual Daly MD 230 [place] [address] documented as of this encounter Visit Diagnoses Not on filedocumented in this encounter Care Teams Drawing Checker Relationship Specialty Start Date End Date Pascual Daly MD 230 [place] [address] PCP - General Internal Medicine 02/22/14 Fani Heck, Woody 230 [place] [address] Pharmacist Internal Medicine 12/16/22 documented as of this encounter
--- OUTSIDE RECORDS SUMMARY | 2024-06-15 11:46 | XMS_ITS | Encounter Summary ---
Author Organization [employer] Address 75 [facility] 7t [place] [address] Care Team Providers Care Breaker Operator Name Role Phone Pascual Daly MD Primary Care Provide r Fani Heck PharmD Unavailable [phone] Reason for Visit * Reason Onset Date Comments Med Refill 06/10/2024 Encounter Details Date Type Department Care Team (Late st Contact Info) Description 06/10/2024 Refill [facility] MEDICINE 230 [place] [address] Pascual Daly MD 230 [place], [place] [phone] Fibromyalgia Social History Tobacco Use Types Packs/Day [...] encounter Miscellaneous Notes * Telephone Encounter - Sergio Sanchez - 06/10/2024 11:29 AM EST TC from pt requesting medication refill. Medications needing refill : oxyCODONE (Roxicodone) 5 MG immediate release tablet To be sent to: [facility] - [place], [place] - [address] [place] [address] documented in this encounter Plan of Treatment Upcoming Encounters Date Type Department Care Team ([facility] st Contact Info) Description 07/22/2024 10:30 AM EDT Clinical Support [facility] CHC MED & PEDS 505 [place] [address] Amanda Fernández RN 505 [place] [address] 08/03/2024 10:00 AM EDT Office Visit [facility] MEDICINE 230 [place] [address] Pascual Daly MD 230 [place] [address] documented as of this encounter Goals Goal [...] documented as of this encounter Care Teams Breaker Operator Relationship Specialty Start Date End Date Pascual Daly MD 230 [place] [address] PCP - General Internal Medicine 02/22/14 Fani Heck, Woody 230 [place] [address] Pharmacist Internal Medicine 12/16/22 documented as of this encounter
--- OUTSIDE RECORDS SUMMARY | 2024-06-15 11:46 | XMS_ITS | Encounter Summary ---
Author Organization [employer] Address 75 [facility] [address] 7t [place] [address] Care Team Providers Care Pricer Name Role Phone Pascual Daly MD Primary Care Provide r Fani Heck PharmD Unavailable [phone] Reason for Visit * Reason Comments Med Refill Encounter Details Date Type Department Care Team (Late st Contact Info) Description 10/21/2023 Refill [facility] MEDICINE 230 [place] [address] Titi Gray FNP Major depressive disorder with [...] Upcoming Encounters Date Type Department Care Team ([facility] st Contact Info) Description 07/22/2024 10:30 AM EDT Clinical Support [facility] CHC MED & PEDS 505 [place] [address] Amanda Fernández RN 505 [place] [address] 08/03/2024 10:00 AM EDT Office Visit [facility] MEDICINE 230 [place] [address] Pascual Daly MD [address] [place] [address] documented as of this encounter Goals Goal [...] documented as of this encounter Care Teams Pricer Relationship Specialty Start Date End Date Pascual Daly MD [address] [place] [address] PCP - General Internal Medicine 02/22/14 Fani Heck, PharmD [address] [place] [address] Pharmacist Internal Medicine 12/16/22 documented as of this encounter
== END 2024-06-15 10:48 | disposition home or self-care (01) ==
PROVIDERS: PCP Internal Medicine; Visit Provider Internal Medicine Endocrinology, Diabetes & Metabolism
DX: E10.649 Type 1 diabetes mellitus with hypoglycemia without coma (principal); E03.9 Hypothyroidism, unspecified; E21.1 Secondary hyperparathyroidism, not elsewhere classified
CPT/HCPCS: 99214; G2211

== ENCOUNTER 2024-06-18 09:51 | Outpatient (AMB) | payer OTHER, SELFPAY ==
--- NOTE | 2024-06-18 10:15 | A.OFFVIS_ITS ---
Vital Signs 06/18/24 10:22 Height 4 ft 11 in Weight 151 lb 0.266 oz BMI 30.5 BP 140/70 H Blood Pressure Location Lt brachial Position Sitting Pulse 69 Pulse Source Pulse Oximeter Pulse Oximetry (%) 98 Oxygen Delivery Method Room Air Intake Visit Reasons: RA Intake Note: Patient presents for RA. Curing Press Maintainer Required: Yes Curing Press Maintainer Language: Director Manufacturing Engineering Services: Curing Press Maintainer Present Curing Press Maintainer Name: Esperanza [id number] Information Interpreted: non-clinical & clinical Allergies lorazepam [LORAZEPAM] Allergy (Severe, Verified 06/18/24 10:21) DELIRIUM celecoxib [From Celebrex] Allergy (Intermediate, Verified 06/18/24 10:21) ITCHING tramadol [TRAMADOL] Allergy (Intermediate, Verified 06/18/24 10:21) ITCHING zolpidem [Ambien] Allergy (Unknown, Verified 06/18/24 10:21) unknown Medication List - Last Reconciled 06/18/24 by Mirella Garcia MD acetaminophen 650 mg (2 x 325 mg) PO Q6H PRN Actemra ACTPen (tocilizumab) 162 mg (0.9 mL) subcut Q2W NS albuterol sulfate 90 mcg/actuation 2 puffs inhalation Q4-6H PRN albuterol sulfate 2.5 mg (3 mL) inhalation Q3H PRN amlodipine 10 mg PO DAILY aripiprazole 20 mg PO DAILY atorvastatin 20 mg PO DAILY bisacodyl 10 mg (2 x 5 mg) PO BEDTIME blood sugar diagnostic (FreeStyle Lite Strips) TEST BLOOD SUGAR 8 TIMES EVERY DAY blood-glucose meter (FreeStyle Lite Meter kit) As directed calcium citrate 400 mg (2 x 200 mg (950 mg)) PO BID carvedilol 6.25 mg PO BID cholecalciferol (vitamin D3) (Vitamin D3) 50 mcg PO QAM clonazepam 1 tab PO Q8H PRN clopidogrel 75 mg PO QAM cyclobenzaprine 10 mg PO TID PRN esomeprazole magnesium 40 mg PO DAILY folic acid 1 mg PO DAILY gabapentin 100 mg PO BID glucagon 3 mg/actuation (Baqsimi) 3 mg intranasal ONCE PRN 30 days glucagon 3 mg/actuation (Baqsimi) 3 mg intranasal ONCE PRN 30 days hydroxyzine HCl 10 mg PO Q8H PRN insulin aspart (niacinamide) 100 unit/mL (3 mL) (Fiasp FlexTouch U-100 Insulin) 2 - 9 units subcut QID 30 days insulin syringe-needle U-100 (BD Insulin Syringe Ultra-Fine) As directed 3 times per day ipratropium-albuterol 0.5 mg-3 mg(2.5 mg base)/3 mL 3 mL inhalation RQ4H WHILE AWAKE 7 days levothyroxine 112 mcg PO DAILY linaclotide (Linzess) 290 mcg PO QAM losartan 100 mg PO DAILY melatonin 3 mg PO BEDTIME methocarbamol 500 mg PO DAILY nebulizers As directed nut.tx.gluc.intol,lac-free,soy (Glucerna oral liquid) 1 ea PO BID 28 days ondansetron 4 mg PO Q8H PRN oxycodone 5 mg PO Q4H PRN oxycodone ER (OxyContin) 10 mg PO BID pen needle, diabetic (Pentips Pen Needle) USE FIVE TIMES DAILY prazosin 6 mg PO BEDTIME semaglutide (weight loss) (Wegovy) 2.4 mg (0.75 mL) subcut Q7D 28 days Tresiba FlexTouch U-100 (insulin degludec) 20 units (0.2 mL) subcut DAILY 30 days NS venlafaxine ER (Effexor XR) 150 mg PO DAILY zinc gluconate 30 mg PO DAILY HPI Comments Details: Patient is a 74-year-old female with hypertension, hyperlipidemia, GERD, diabetes, Rona's disease with concomitant hypothyroidism, IBS, depression, 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 Interval History: Patient last seen 02/19/[address] Rocha. At that time she was on Actemra and was doing reasonably well overall however continued to complain of diffuse pain. She continued to have swelling to the dorsum of her left hand likely secondary to a ruptured tendon and was supposed to follow up with her hand surgeon.\ Since then patient has not followed up with hand surgery due to uncontrolled diabetes. Currently following up with endocrinology for this. With respect to her rheumatoid arthritis she feels her rheumatoid arthritis is under control however she continues to have problems with the left hand again secondary to her ruptured tendon. Rheumatologic History: Seropositive rheumatoid arthritis +RF -ve CCP dx 02/10 Enbrel 02/2023 partially effective DC 09/2023 Actemra 10/2023 effective Initial history : This is a 72-year-old female who presents for evaluation of joint pain. Patient states that she started having pain and swelling of her hands and feet, ankles over the last 6 months associated with morning stiffness lasting 10 minutes. She has had back pain for years. Meloxicam is not helpful. She is unaware of any family history of autoimmune rheumatic disease. She denies any skin rashes. Denies any history of DVT/PE or recurrent abortions. Current Rheumatology Medication(s): Actemra 162mg SC every other week Reclast IV infusions 5mg every year [facility] Medical History Hypoglycemia due to insulin Elevated parathyroid hormone Osteoporosis Hyperlipidemia (04/21/1959) Depressive disorder (04/21/1959) Nutritional anemia (04/21/1959) Shortness of breath Hypothyroidism (04/21/1959) Anemia Chronic gastritis Heart palpitations NSTEMI (non-ST elevated myocardial infarction) Recurrent falls (12/04/11) Iron deficiency anemia (04/21/1959) Fibromyositis (04/21/1959) Eczema (04/21/1959) High risk medication use Hepatitis C antibody positive in blood Screening for osteoporosis Screening for viral disease Joint swelling Overweight (BMI 25.0-29.9) Neck pain Swelling of knee joint, right Intra-abdominal abscess Diabetes Elevated liver function tests Intestinal malabsorption following gastrectomy Obesity (BMI 30-39.9) 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 Hypertension Cholecystitis Hyperlipidemia, unspecified Essential hypertension Atherosclerotic cardiovascular disease Fibromyalgia Folliculitis Anxiety Depression History of myocardial infarction Diabetes type 1, uncontrolled 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 Mother CVA (cerebral vascular accident) Sister Hypertension Brother Hypertension Liver cancer Social History Household Members: None Housing: Apartment Are you a primary career consultant to a significant other at home: No Do you presently have visiting nurse or other home services: Yes Unable to assess alcohol history related to: Unable to respond Alcohol intake: never Patient Tobacco Use Status: Never used Tobacco Advance Directives Date on File: 09/17/23 service: No Current occupational status: disabled Current occupation: right hand dominant Review of Systems Const Details: Review of Systems Constitutional: Denies fever, chills, weight loss ENT: Denies vision changes, eye pain or eye redness, dental caries, dry mouth GI: Denies nausea, vomiting, diarrhea, abdominal pain, change in BM Pulm: Denies SOB, MIRANDA, hemoptysis, wheezing Cards: Denies chest pain, palpitations Skin: Denies Raynaud's, rash, nail changes, photosensitivity, TURBO OPERATOR: Denies headaches, weakness, paresthesias, recurrent falls MSK: as per HPI All other systems reviewed and are unremarkable except noted above Physical Exam Vital Signs: Last Vital Signs Pulse 69 06/18/24 10:22 BP 140/70 H 06/18/24 10:22 Pulse Ox 98 06/18/24 10:22 Oxygen Delivery Method Room Air 06/18/24 10:22 BMI result Body Mass Index 30.5 Vital signs reviewed Physical Examination CONSTITUITIONAL Patient alert and cooperative. Well appearing and in no apparent painful distress HEENT Conjunctiva and sclera clear. ?Pupils equal round and reactive to light. ?No lymphadenopathy. ? CHEST/RESPIRATORY SYSTEM Normal respiratory effort and able to speak in complete sentences. ?Clear to auscultation bilaterally. ?No crackles, rales, rhonchi, wheezes heard. CARDIAC SYSTEM Regular rate and rhythm. ?S1 and S2 heard no murmurs. ?Radial pulses intact bilaterally MSK Hands: ?Good med admin strength on the right. Poor med admin strength on the left with ring finger of the left hand in perpetual flexion. Known ruptured tendon Wrists: ?Full range of motion at the wrists without pain. ?No tenderness to palpation or synovitis noted to the wrists. Elbows: Full range of motion without pain. No tenderness, weakness, swelling, increased warmth or erythema. Shoulders: Decreased range of motion to the left shoulder with tenderness to palpation of the left subacromial bursa Hips: Unable to fully evaluate as patient is in the chair. Knees: ?Full range of motion. ?No tenderness, swelling, increased warmth or erythema.?No effusion or crepitations Ankles: Full range of motion. ?No tenderness, swelling, increased warmth or erythema.? Feet: ?Negative squeeze test. ?No tenderness to palpation or swelling of the MTPs. Tender points:?No tenderness to palpation of the bilateral trapezius, supraspinatus, greater trochanters, anterior costochondral junctions, bilateral gluteal areas, bilateral suboccipital muscle insertions SKIN Skin intact without rashes. Office Procedures AMB Joint Injection/Aspiration Joint Injection/Aspiration Details: Procedure was explained to the patient and consent was obtained. ? The area of interest was identified and confirmed with patient. ?This was subsequently cleaned with chlorhexidine x3. ? The area was then anesthetized using ethyl chloride spray. 40 mg Kenalog with 1 cc 1% lidocaine was injected without issue. ?Minimal to no bleeding. ?Patient tolerated procedure. Primary Site: left shoulder Prep: site was prepped using aseptic technique and ethochloride spray was applied Injected: 40 mg of, Kenalog, with 1 mL of, 1% plain lidocaine and in the subcromial space Approach Used: other Procedure: The patient tolerated the procedure well Coding 34852 - Glenohumeral/Tronchanteric Bursa/Intraarticular Procedure code (CPT) selection complete Office Meds lidocaine (PF) 10 mg/mL (1 %) injection solution Performing Provider: Mirella Garcia MD Performing Location: [facility] [place] Rheumatology Administered by: Mirella Garcia MD on 06/18/24 16:43 Dose Route Admin Location Dispensed Lot Number Expiration Date [facility] [address] Patrol Officer 1 mL Infiltration left subacromial bursa 2 mL [id number] 07/20/26 51004-901-25 [facility] Kenalog 40 mg/mL suspension for injection Performing Provider: Mirella Garcia MD Performing Location: [facility] [place] Rheumatology Administered by: Mirella Garcia MD on 06/18/24 16:43 Dose Route Admin Location Dispensed Lot Number Expiration Date [facility] [address] Patrol Officer 40 mg intrabursal left subacromial bursa 1 mL [id number] 10/19/26 [address]-6 [employer] Results Reviewed Results Reviewed: Laboratory Tests 10/08/22 06/15/24 11:23 11:09 WBC 10.2 RBC 4.05 L Hgb 11.2 L Hct 35.5 L Plt Count 175 ESR 2 Sodium 143 Potassium 4.9 Chloride 109 H Carbon Dioxide 26 BUN 20 H Creatinine 1.24 AST 48 H ALT 56 H C-Reactive Protein < 0.10 25-OH Vitamin D Total 44.2 Rheumatoid Factor 15.3 H Cycl Citrul Peptide IgG <16 Hepatitis A IgM Ab Nonreactive Hep Bs Antigen Negative Hep Bs Antibody NONREACTIVE Hep B Core Total Ab Nonreactive Hepatitis C Ab (EIA) Reactive H XR Bilateral Hands 07/2023 FINDINGS: Left Hand: The bones are diffusely demineralized. Moderate degenerative changes in the first carpometacarpal joint with joint space narrowing and hypertrophic change. Chondrocalcinosis at the ulnocarpal articulation. Moderate joint space narrowing with degenerative changes in the first metacarpophalangeal joint. Radiopaque marker placed by technologist to indicate area of concern as indicated by the patient adjacent to the left fourth digit. Mild narrowing with degenerative changes in scattered IP joints. No displaced fracture of the left fourth digit appreciated. Right Hand: The bones are diffusely demineralized. Moderate degenerative changes in the first carpometacarpal joint with joint space narrowing and hypertrophic change. Chondrocalcinosis at the ulnocarpal articulation. Moderate joint space narrowing with degenerative changes in the first metacarpophalangeal joint. Mild narrowing with degenerative changes in scattered IP joints. Radiopaque marker placed by technologist to indicate area of concern as indicated by the patient at the distal aspect of the right third digit and demonstrated no displaced fracture in this region. IMPRESSION: 1. Degenerative changes in bilateral hand redemonstrated as detailed above. 2. Bones are diffusely demineralized. No displaced fracture appreciated. Recommend follow-up imaging in 10-14 days if fracture is suspected. Assessment & Plan Assessment & Plan (1) Seropositive rheumatoid arthritis: Comment: +RF -ve CCP dx 02/10 Enbrel 02/2023 partially effective DC 09/2023 Actemra 10/2023 effective Code(s): M05.9 - Rheumatoid arthritis with rheumatoid factor, unspecified Category: Medical Plan: #Seropositive RA Patient is a 74-year-old female with seropositive erosive rheumatoid arthritis patient with known ruptured tendon that is affecting her left hand and has not been repaired. The last time she saw her surgeon was last year around July. P shi needs to improve her glucose prior to surgery. However she continues to complain of pain and so I think it warrants her following up with her orthopedic surgeon. From a rheumatoid arthritis standpoint she appears to be in remission Plan - Actemra 162mg SC every other week - RTC 4 months - Labs today: CBC, CMP, ESR, CRP, hepatitis panel, T spot, lipid panel (2) Osteoporosis: Comment: DEXA 05/2023 Left femur neck T-score-3.8 Left femur total-4.1 L-spine T-score -3.6 Left clavicle and multiple rib fractures 10/2023 Code(s): M81.0 - Age-related osteoporosis without current pathological fracture Category: Medical Qualifiers: Osteoporosis type: age-related Presence of current pathological fracture: without current pathological fracture Qualified Code(s): M81.0 - Age- related osteoporosis without current pathological fracture Plan: #Osteoporosis Patient with osteoporosis complicated by multiple fractures. Currently on Reclast. Her last DEXA scan was in 2023 repeat is due in 2025. We will check labs including vitamin-D prior to her next appointment in 4 months once her vitamin-D is at goal we will proceed with Reclast infusion. (3) Encounter for monitoring tocilizumab therapy: Code(s): Z51.81 - Encounter for therapeutic drug level monitoring; Z79.620 - meterman (current) use of immunosuppressive biologic Plan: #Long-term Use of Tocilizumab Discussed the risks and benefits of tocilizumab with the management of this patient's rheumatic condition. ? Benefits include decreased pain, improved mortality, improved quality of life Risks include LFT abnormalities, elevated triglycerides, GI perforations Contraindicated in a patient with history of diverticulitis Monitoring: ?CBC, CMP, triglycerides (4) Encounter for monitoring bisphosphonate therapy: Code(s): Z51.81 - Encounter for therapeutic drug level monitoring; Z79.83 - assisted (current) use of bisphosphonates Plan: #Long-term Use of Bisphosphonates Risks and benefits of bisphosphonates in the management of osteoporosis Benefits include improved bone density, decreased fracture risk Risks include atypical femoral fractures, GI upset, esophageal strictures Contraindicated in patients with a creatinine clearance < 30 to 35 ml/min Keep vitamin-D at least 35 ng/mL Plan I spent 35 minutes reviewing the record and labs, taking a history, examining the patient, discussing the treatment plan and documenting in the medical record Orders: Orders AMB Joint Injection/Aspiration Today M75.52 - Bursitis of left shoulder Complete Blood Count Auto Diff 4 Months M05.9 - Rheumatoid arthritis with r heumatoid factor, unspecified Lipid Panel 4 Months M05.9 - Rheumatoid arthritis with rheumatoid factor, unspecified T Spot TB 4 Months M05.9 - Rheumatoid arthritis with rheumatoid factor, unspecified Hepatitis C Viral Load 4 Months M05.9 - Rheumatoid arthritis with rheumatoid factor, unspecified Vitamin D 25-OH Total 4 Months E55.9 - Vitamin D deficiency, unspecified, M81.0 - Age-related osteoporosis without current pathological fracture Comprehensive Met. Panel 4 Months M05.9 - Rheumatoid arthritis with rheumatoid factor, unspecified C Reactive Protein 4 Months M05.9 - Rheumatoid arthritis with rheumatoid factor, unspecified Hepatitis A,B,C Profile 4 Months M05.9 - Rheumatoid arthritis with rheumatoid factor, unspecified Erythrocyte Sedimentation Rate 4 Months M05.9 - Rheumatoid arthritis with rheumatoid factor, unspecified Medications: Refilled Actemra ACTPen (tocilizumab) 162 mg (0.9 mL) subcut Q2W 1.8 mL 5RF NS M05.9 - Rheumatoid arthritis with rheumatoid factor, unspecified Coding Level of Care Code Est Pt Level 4 (71401) Complex EM visit Add On G2211 Diagnoses Seropositive rheumatoid arthritis M05.9 Age-related osteoporosis without current pathological fracture M81.0 Osteoporosis type: age-related Presence of current pathological fracture: without current pathological fracture Encounter for monitoring tocilizumab therapy Z51.81; Z79.620 Encounter for monitoring bisphosphonate therapy Z51.81; Z79.83 CPT Codes Coding - Joint 7: 08598 - Glenohumeral/Tronchanteric Bursa/Intraarticular ([id number])
[2024-06-18 10:22] VITALS: BP 140/70; PULSE 69; O2SAT 98; BMI 30.5
--- OUTSIDE RECORDS SUMMARY | 2024-06-18 10:44 | XMS_ITS | Encounter Summary ---
Author Organization [employer] Address [address] [place] [address] Care Team Providers Care Marine Electronics Repairer Name Role Phone Pascual Daly MD Primary Care Provide r Fani Heck PharmD Unavailable [phone] Reason for Visit * Reason Comments Med Refill Encounter Details Date Type Department Care Team (Late st Contact Info) Description 03/27/2023 Refill [facility] [address] [place] [address] Titi Gray FNP Major depressive disorder with [...] Description 07/22/2024 10:30 AM EDT Clinical Support [facility] [address] [place] [address] Amanda Fernández, AALIYAH [address] [place] [address] 08/03/2024 10:00 AM EDT Office Visit [facility] MEDICINE [address] [place] [address] Pascual Daly MD [address] [place] [phone] documented as of this encounter Goals Goal [...] documented as of this encounter Care Teams Marine Electronics Repairer Relationship Specialty Start Date End Date Pascual Daly MD [address] [place] [id number] PCP - General Internal Medicine 02/22/14 Fani Heck, PharmD [address] [place] [phone] Pharmacist Internal Medicine 12/16/22 documented as of this encounter
--- OUTSIDE RECORDS SUMMARY | 2024-06-18 10:45 | XMS_ITS | Encounter Summary ---
Author Organization [employer] Address [address] [place] [address] Care Team Providers Care Early Childhood Name Role Phone Pascual Daly MD Primary Care Provide r Fani Heck PharmD Unavailable [phone] Reason for Visit * Reason Comments Med Refill Encounter Details Date Type Department Care Team (Late st Contact Info) Description 08/26/2023 Refill [facility] [address] [place] [address] [phone] Momo Rizo MD [address] [place] [phone] Benign hypertension Social History Tobacco Use Types [...] 07/22/2024 10:30 AM EDT Clinical Support [facility] [address] [place] [address] Amanda Fernández, AALIYAH [address] [place] [address] 08/03/2024 10:00 AM EDT Office Visit [facility] MED[facility] [address] [place] [address] Pascual Daly MD [address] [place] [phone] documented as of this encounter Goals Goal [...] documented as of this encounter Care Teams Early Childhood Relationship Specialty Start Date End Date Pascual Daly MD [address] [place] [id number] PCP - General Internal Medicine 02/22/14 Fani Heck, KristiD [address] [place] [phone] Pharmacist Internal Medicine 12/16/22 documented as of this encounter
--- OUTSIDE RECORDS SUMMARY | 2024-06-18 10:45 | XMS_ITS | Encounter Summary ---
Author Organization [email or web address] Address [address] [facility] [address] [place] [address] Care Team Providers Care Dance Instructor Name Role Phone Pascual Daly MD Primary Care Provide r Fani Heck PharmD Unavailable [phone] Reason for Visit * Reason Comments Med Refill Encounter Details Date Type Department Care Team (Late Contact Info) Description 10/02/2022 Refill [facility] MED[facility]INE [address] [place] [address] Titi Gray FNP Major depressive disorder with [...] 07/22/2024 10:30 AM EDT Clinical Support [facility] [address] [place] [address] Amanda Fernández, AALIYAH [address] [place] [address] 08/03/2024 10:00 AM EDT Office Visit [facility] [address] [facility] [place] [address] Pascual Daly MD [address] [place] [address] documented as of this encounter Goals Goal [...] documented as of this encounter Care Teams Dance Instructor Relationship Specialty Start Date End Date Pascual Daly MD [address] [place] [address] PCP - General Internal Medicine 02/22/14 Fani Heck, PharmD [address] [place] [place] [address] Pharmacist Internal Medicine 12/16/22 documented as of this encounter
--- OUTSIDE RECORDS SUMMARY | 2024-06-18 10:45 | XMS_ITS | Encounter Summary ---
Author Organization [employer] Address [address] [place] [address] Care Team Providers Care Color Expert Name Role Phone Pascual Daly MD Primary Care Provide r Fani Heck PharmD Unavailable [phone] Encounter Details Date Type Department Care Team (Late st Contact Info) Description 03/05/2024 Refill [facility] MED[facility]INE [address] [place] [address] Jefry Chun Benign hypertension; Type 2 diabetes mellitus without complication, with long-term current use of insulin ([facility]) Social History Tobacco Use Types Packs/Day [...] Upcoming Encounters Date Type Department Care Team ([facility] st Contact Info) Description 07/22/2024 10:30 AM EDT Clinical Support [facility] [address] [place] [address] Amanda Fernández RN [address] [place] [address] 08/03/2024 10:00 AM EDT Office Visit [facility] MED[facility]INE [address] [place] [address] Pascual Daly MD [address] [place] [phone] documented as of this encounter Goals Goal Patient Goal Type Associated Problems Recent Progress Patient-Stated? Author Blood Pressure < 140/90 Blood Pressure 133/70( 025 11:28 AM EST) No Fani Heck, PharmD documented as of this encounter Visit Diagnoses Diagnosis Benign hypertension Essential hypertension, benign Type 2 diabetes mellitus without complication, with long-term current use of insulin ([facility]) documented in this encounter Additional Health Concerns Assessment Noted Time PHQ-9 Depression Total Score: 9 01/29/20 24 11:00 AM EDT documented as of this encounter Care Teams Color Expert Relationship Specialty Start Date End Date Pascual Daly MD [address] [place] [id number] PCP - General Internal Medicine 02/22/14 Fani Heck, KristiD [address] [place] [phone] Pharmacist Internal Medicine 12/16/22 documented as of this encounter
--- OUTSIDE RECORDS SUMMARY | 2024-06-18 10:45 | XMS_ITS | Encounter Summary ---
Author Organization [employer] Address [address] [place] [address] Care Team Providers Care Customer Trainer Name Role Phone Pascual Daly MD Primary Care Provide r Fani Heck PharmD Unavailable [phone] Encounter Details Date Type Department Care Team ([facility] st Contact Info) Description 09/25/2023 Telephone [facility] [address] [place] [address] Pascual Daly MD [address] [place] [address] Social History Tobacco Use Types Packs/Day Years [facility] [address] [place] [address] Amanda Fernández, RN [address] [place] [address] 08/03/2024 10:00 AM EDT Office Visit [facility] [address] [place] [address] Pascual Daly MD [address] [place] [phone] documented as of this encounter Goals Goal Patient Goal Type Associated Problems Recent Progress Patient-Stated? Author Blood Pressure < 140/90 Blood Pressure 133/70( 025 11:28 AM EST) No Fani Heck, PharmD documented as of this encounter Visit Diagnoses Diagnosis Type 2 diabetes mellitus without complication, with long-term current use of insulin ([facility]) documented in this encounter Additional Health Concerns Assessment Noted Time PHQ-9 Depression Total Score: 11 024 10:24 AM EST documented as of this encounter Care Teams Customer Trainer Relationship Specialty Start Date End Date Pascual Daly MD [address] [place] [phone] PCP - General Internal Medicine 02/22/14 Fani Heck, KristiD [address] [place] [phone] Pharmacist Internal Medicine 12/16/22 documented as of this encounter
--- OUTSIDE RECORDS SUMMARY | 2024-06-18 10:45 | XMS_ITS | Encounter Summary ---
Author Organization [employer] Address [address] [facility] [address] [place] [address] Care Team Providers Care Utility Worker Driver Name Role Phone Pascual Daly MD Primary Care Provide r Fani Heck PharmD Unavailable [phone] Reason for Visit * Reason Onset Date Comments Appointment Request 09/03/2022 Encounter Details Date Type Department Care Team ([facility] st Contact Info) Description 09/03/2022 Telephone [facility] [address] [place] [address] Pascual Daly MD [address] [place] [address] Appointment Request Social History Tobacco Use Types [...] 07/22/2024 10:30 AM EDT Clinical Support [facility] [address] [place] [address] Amanda Fernández, RN [address] [place] [address] 08/03/2024 10:00 AM EDT Office Visit [facility] [address] [place] [address] Pascual Daly MD [address] [place] [address] documented as of this encounter Goals Goal [...] as of this encounter Care Teams Utility Worker Driver Relationship Specialty Start Date End Date Pascual Daly MD [address] [place] [id number] PCP - General Internal Medicine 02/22/14 Fani Heck PharmD [address] [place] [id number] Pharmacist Internal Medicine 12/16/22 documented as of this encounter
--- OUTSIDE RECORDS SUMMARY | 2024-06-18 10:45 | XMS_ITS | Data Portability ---
Author Organization [facility], Main Office Address [address] [place] [address] Care Team Providers Care Custodial Laborer Name Role Phone MARII MASSEY Primary Care Provider [facility] OTHER Assessment No assessment recorded. Plan of Treatment Reminders Order Date Submit Date Provider Last Modified By Organization Details Last Modified Time Details Appointments None recorded. Lab None recorded. Referral None recorded. Procedures None recorded. Surgeries None recorded. Imaging None recorded. Medication Orders oxycodone 5 mg tablet 2023 024 [facility] , [address] [place] [address], [address], 4 21:23:28 oxycodone 5 mg tablet 2023 024 [facility] , [address] [place] [address], [address], 4 13:28:18 Patient TargetsNo targets recorded. Patient InstructionsNo instructions recorded. Reason for Referral None Reported. 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 Dori Pena NP [address], [address], [place], [address], [facility] 4 15:49:21 Hypertensive disorder 55252515 Active 2023 Dori Pena NP [address], [place], [address], [facility] 4 15:49:57 Gastroesophage al reflux disease 699422946 Active 2023 Dori Pena NP [address], [place], [address], [place] [facility] 4 15:51:24 Rheumatoid arthritis 52172193 Active 2023 Dori Pena NP [address], [place], [address], [facility] 4 15:51:29 Mixed anxiety and depressive disorder 868057295 Active 2023 Dori Pena NP [address], [place], [address], [place] [facility] 4 15:51:45 Obesity 686591664 Active 2023 Dori Pena NP [address], [place], [address], [facility] 4 15:51:51 Closed flail chest 286931359 Active 2023 Dori Pena NP [address], [place], [address], [facility] 4 15:52:35 Asthenia 63565680 Active 2023 Dori Pena NP [address], [place], [address], [facility] 4 15:52:46 Irritable bowel syndrome 18029674 Active 2023 Dori Pena NP [address], [place], [address], [facility] 4 16:06:46 Recurrent falls 759749250 Active 2023 Dori Pena NP [address], [place], [address], [facility] 4 16:38:03 Problem Notes None recorded. Procedures Surgical History Date Name Laterality Status Provider Name and Address Organization Details Recorded Time bypass gastroenterostomy completed Dori Pena, AAKASH [address], [place], [address], [facility] 09/17/2023 15:40:41 Laparoscopic cholecystectomy completed Dori Pena NP [address] [facility] [address], [address], [place], [address], [facility] 09/17/2023 15:41:25 fixed suspension procedure of urinary bladder neck completed Dori Pena NP [address], [place], [address], [facility] 09/17/2023 15:42:01 Appendectomy completed Dori Pena NP [address], [place], [address], [facility] 09/17/2023 15:42:11 bilateral cataract surgery completed Dori Pena NP [address], [address], [place], [address], [facility] 09/17/2023 15:42:26 Imaging Results None recorded. Procedure Notes None recorded. Medical Equipment None Reported. Allergies Allergen ID Allergen Name Allergen Category Reaction Reaction Severity Criticality Documentation Date Start Date Code Code System Note Provider Name and Address Organization Details Recorded Time 06086 celecoxib medicatio n other Not available unabletoasse 09/17/2023 97275 7 RxNorm unkno wn Not Available Not Available Not Available 94614 lorazepam medicatio n other [facility] 09/17/2023 6470 RxNorm unkno wn Not Available Not Available Not Available 37284 tramadol medicatio n other Not available unabletoasse 09/17/2023 17873 RxNorm unkno wn Not Available Not Available Not Available 45525 zolpidem medicatio n other Not available unabletoasse 09/17/2023 49514 RxNorm unkno wn Not Available Not Available [...] Address Organization Details Last Updated DateTime 4 68377.7 8 g 98 /min 18 /min 97.8 [degF] 94 % 94 % 150 mm[Hg] 77 mm[Hg] Dori Pena NP [address] [facility] [address], [place], [address], [facility] 4 10:49:41 Date Recorded Body weight Heart rate Respiratory rate Body temperature Oxygen saturation Oxygen saturation in Arterial blood by Pulse oximetry Systolic blood pressure Diastolic blood pressure Provider Name and Address Organization Details Last Updated DateTime 4 47770.7 8 g 83 /min 18 /min 97 [degF] 98 % 98 % 148 mm[Hg] 74 mm[Hg] Dori Pena NP [address] [facility] [address], [place], [address], [facility] 4 13:29:12 Date Recorded Body weight Heart rate Respiratory rate Body temperature Oxygen saturation Oxygen saturation in Arterial blood by Pulse oximetry Systolic blood pressure Diastolic blood pressure Provider Name and Address Organization Details Last Updated DateTime 4 03833.7 8 g 76 /min 18 /min 97.8 [degF] 97 % 97 % 128 mm[Hg] 78 mm[Hg] Dori Pena NP [address] [facility] [address], [place], [address], [facility] 4 12:05:35 Date Recorded Body weight Heart rate Respiratory rate Body temperature Oxygen saturation Oxygen saturation in Arterial blood by Pulse oximetry Systolic blood pressure Diastolic blood pressure Provider Name and Address Organization Details Last Updated DateTime 4 13490 g 80 /min 18 /min 98 [degF] 95 % 95 % 111 mm[Hg] 60 mm[Hg] Dori Pena NP [address] [facility] [address], [place], [address], [facility] 4 11:40:36 Date Recorded Body weight Heart rate Respiratory rate Body temperature Oxygen saturation Oxygen saturation in Arterial blood by Pulse oximetry Systolic blood pressure Diastolic blood pressure Provider Name and Address Organization Details Last Updated DateTime 4 48951 g 74 /min 18 /min 98.4 [degF] 95 % 95 % 124 mm[Hg] 68 mm[Hg] Dori Pena NP [address] [facility] [facility] [address], [place], [address], [facility] 4 13:12:09 Social History Question Answer Notes LastModified by Organizat ion Details LastModified Time Tobacco Smoking Status Never Smoker Dori Pena NP [address] [facility], [facility] [address], [place], [address], [facility] 09/17/2023 15:39:38 Do You Have An Advance [...] (RSV) vaccine, unspecified 4 completed Radha batista, [facility] 09/19/2023 16:11:12 Tdap 4 completed Radha Stoll null, [facility] 09/19/2023 16:11:26 Td(adult) unspecified formulation 3 completed Radha Jerman null, [facility] 09/19/2023 16:11:43 Td(adult) unspecified formulation 3 completed Radha Jerman null, [facility] 09/19/2023 16:11:51 Pneumococcal conjugate PCV 13 6 completed Radha Jerman null, [facility] 09/19/2023 16:12:53 Pneumococcal conjugate PCV20, polysaccharide [id number] conjugate, adjuvant, PF 4 completed Radha Stoll null, [facility] 09/19/2023 16:13:07 pneumococcal polysaccharide PPV23 1 completed Radha Stoll null, [facility] 09/19/2023 16:13:22 pneumococcal polysaccharide PPV23 4 completed Radha Jerman null, [facility] 09/19/2023 16:13:31 influenza, unspecified formulation 2 completed [facility]23 16:13:47 influenza, unspecified formulation 3 completed Radha Jerman null, [facility] 09/19/2023 16:13:55 MMR 8 completed Radha Jerman [facility], [facility] 09/19/2023 16:14:21 SARS-COV-2 (COVID-19) vaccine, UNSPECIFIED 1 completed Radha Jerman null, [facility] 09/19/2023 16:15:58 SARS-COV-2 (COVID-19) vaccine, UNSPECIFIED 1 completed Radha Jerman null, [facility] 09/19/2023 16:16:13 SARS-COV-2 (COVID-19) vaccine, UNSPECIFIED 1 completed [facility] 09/[facility]/2023 16:16:27 SARS-COV-2 (COVID-19) vaccine, UNSPECIFIED 2 completed Radha Stoll [facility] 09/19/2023 16:17:15 SARS-COV-2 (COVID-19) vaccine, UNSPECIFIED 2 completed Radha Stoll [facility] 09/19/2023 16:21:38 zoster, unspecified formulation 5 completed Radha Stoll [facility] 09/19/2023 16:23:04 zoster, unspecified formulation 9 completed Radha [facility] 09/19/2023 16:23:18 zoster, unspecified formulation 9 completed [facility] 09/19/2023 16:25:18 Past Encounters Encounter ID Performer Location Encounter Start Date Encounter Closed Date Diagnosis/Indication Diagnosis SNOMED-CT Code Diagnosis ICD10 Code Diagnosis Note [id number] Dori Pena NP [address] [address] 09/17/2023 15:22:09 09/23/2023 14:50:24 Closed flail chest 463571474 S22.5XXD with multiple rib fractures and clavicular [...] If stable no further workup needed. Asthenia 10788627 R53.1 with notable weakness due to injuryPT OT eval and treatsuppo rtive caremonito r Type 1 frank betes mellitus 15728485 E10.9 tresiba 30 unit sc qhsinsulin 2-14 SSI sc qidhsmonit or BS and adjust as needed Hypertensive disorder 38 848556 I10 not on meds for thisamlodi pine 10 mg po dailylosar zaragoza 100 mg po dailymonit or bp/vitals 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 495174 E06.3 levothyrox ine 112 mcg dailymonit or tsh as needed Gastroesop hageal reflux disease 162945412 K21.9 esomeprazo le 40 mg o daily Obesity 171816967 E66.9 manager general to consultsup portive careportio n controlmon itor weight Mixed anxi ety and depressive disorder 420467316 F41.8 aripiprazo le 20 mg dailyvenla faxine 150 mg po dailyprazo sin 6 mg po qhsmelaton in 3 mg po qhshydroxy zine 10 mg po q 8 hours prn anxietyclo nazepam 0.5 mg po q 8 hours prn anxietycar vedilol 6.25 mg po bidmonitor Rheumatoid arthritis 698 48789 M06.9 enbrel 50 mg sc q 7dayscalci um citrate 400 mg po bidmonitor for reliefsee pain management above with flail chest Irritable bowel syndrome 85443168 K58.9 ? IBSlinzess 290 mcg q ammonitor Deficiency anemias 25384 3007 D53.9 folic acidvit u80tcpeyvo Coronary arteriosclerosis 00635775 I25.10 hx of MIatorvast atin 20 mg po dailyclopi dogrel 75 mg po q amsee above htn medsmonito r Recurrent falls 38653107 2 R29.6 reports history of falls with fiscal services manager at home to help her and balance issuesrepo rts more than 5 falls/year supportive caremonito r [id number] JESSICA HINDS NP [place] [id number] [place] [address] 09/18/2023 13:29:08 09/23/2023 15:13:15 Closed flail chest 506268839 S22.5XXD with multiple rib fractures and clavicular [...] If stable no further workup needed. Asthenia 80833077 R53.1 with notable weakness due to injuryPT OT eval and treatsuppo rtive caremonito r Type 1 frank betes mellitus 05052593 E10.9 A1C 8.8%Contin eu:tresiba 30 unit sc qhsinsulin 2-14 SSI sc qidmonitor BS and adjust as needed Hypertensive disorder 38 627423 I10 amlodipine 10 mg po dailylosar zaragoza 100 mg po dailycoreg 6.25 mg bidmonitor bp/vitals 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 867766 E06.3 levothyrox ine 112 mcg dailymonit or tsh as needed Gastroesop hageal reflux disease 606480200 K21.9 esomeprazo le 40 mg o daily Deficiency anemias 33245 3007 D53.9 folic acidvit [id number] Obesity 306269213 E66.9 manager general to consultsup portive careportio n controlmon itor weight Mixed anxi ety and depressive disorder 035693200 F41.8 aripiprazo le 20 mg dailyvenla faxine 150 mg po dailyprazo sin 6 mg po qhsmelaton in 3 mg po qhshydroxy zine 10 mg po q 8 hours prn anxietyclo nazepam 0.5 mg po q 8 hours prn anxietymon itor Rheumatoid arthritis 698 76661 M06.9 enbrel 50 mg sc q 7dayscalci um citrate 400 mg po bidmonitor for reliefsee pain management above with flail chest Irritable bowel syndrome 83753377 K58.9 ? IBSlinzess 290 mcg q ammonitor Coronary arteriosclerosis 16348292 I25.10 hx of MIatorvast atin 20 mg po dailyclopi dogrel 75 mg po q amsee above htn medsmonito r Recurrent falls 42821305 2 R29.6 reports history of falls with fiscal services manager at home to help her and balance issuesrepo rts more than 5 falls/year supportive caremonito r [id number] Dori Pena NP [facility] [address] [address] 09/22/2023 14:27:57 09/29/2023 19:16:34 Closed flail chest 459202184 S22.5XXD with multiple rib fractures and clavicular [...] If stable no further workup needed. Asthenia 43779603 R53.1 with notable weakness due to injuryPT OT eval and treatsuppo rtive caremonito r Type 1 frank betes mellitus 24023967 E10.9 BS 81-252 [id number] 8.8%contin ue:tresiba 30 unit sc qhsinsulin 2-14 SSI sc qidmonitor BS and adjust as needed Hypertensive disorder 38 867491 I10 improving lately, boderline highcontam lodipine 10 mg po dailylosar zaragoza 100 mg po dailycoreg 6.25 mg bidmonitor bp/vitals 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 401181 E06.3 contlevoth yroxine 112 mcg dailymonit or tsh as needed Gastroesop hageal reflux disease 203488965 K21.9 esomeprazo le 40 mg o daily Deficiency anemias 06802 3007 D53.9 folic acidvit v00bzxvwig Obesity 585861953 E66.9 manager general to consultsup portive careportio n controlmon itor weight Mixed anxi ety and depressive disorder 068007584 F41.8 contaripip razole 20 mg dailyvenla faxine 150 mg po dailyprazo sin 6 mg po qhsmelaton in 3 mg po qhshydroxy zine 10 mg po q 8 hours prn anxietyclo nazepam 0.5 mg po q 8 hours prn anxietymon itor Rheumatoid arthritis 698 51855 M06.9 enbrel 50 mg sc q 7dayscalci um citrate 400 mg po bidmonitor for reliefsee pain management above with flail chest Irritable bowel syndrome 61180889 K58.9 ? IBSlinzess 290 mcg q ammonitor Coronary arteriosclerosis 97307567 I25.10 hx of MIatorvast atin 20 mg po dailyclopi dogrel 75 mg po q amsee above htn medsmonito r Recurrent falls 13966307 2 R29.6 reports history of falls with fiscal services manager at home to help her and balance issuesrepo rts more than 5 falls/year supportive caremonito r Acute cystitis 81624044 N30.00 reports dysuria and occassiona l incontinen ce latelyurin e culture returned showing > 100,000 klebsiella pneumo ssp and started on ceftriaxon e 1gram IM and cefpodoxim e 200 mg po bid x 7 days with probiotic by on provider over the weekend.mo nitor [id number] Jonel Alamo MD [address] [address] 09/23/2023 11:01:43 09/29/2023 19:25:59 Closed fracture of multiple left ribs 7949456079 6942193 S22.42XG see HPIleft rib fxs 2-6 with concern for flail chest , with clavicular fxeval by surgery with no interventi on indicatedm onitor respirator y statusutil ize incentive spirometer monitor for pain controlupd ate surgery with concerns Asthenia 87017972 R53.1 PT OT eval and treatmonit or need for increased support in community Type 1 frank betes mellitus 70293930 E10.9 tresiba 30 units qdSS insulinmon itor glucose and need to titrate Hypertensive disorder 38 398093 I10 norvasc 10 mg qdcoreg 6.25 mg bidlosarta n 100 mg qdcurrentl y elevatedmo nitor need for increased control 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 764896 E06.3 hx of added to PMHmaintai priscilla onsynthroi d 112 mcg qdmonitor tsh prn Gastroesop hageal reflux disease 866175048 K21.9 nexium 40 mg qd continuedm onitor for effect Obesity 015163250 E66.09 dietary eval in patient with baseline DM Mixed anxi ety and depressive disorder 355241710 F41.8 carrying dx requiring multiple medication swill continue out patient medication s includinga bility and ativanmoni tor moodpsych eval prn Rheumatoid arthritis 698 68872 M06.9 remains onenbrel 50 mg q friday Irritable bowel syndrome 81420208 K58.9 ? IBSlinzess 290 mcg q ammonitor Coronary arteriosclerosis 53626953 I25.10 hx of MIatorvast atin 20 mg po dailyclopi dogrel 75 mg po q amsee above htn medsmonito r Recurrent falls 74538166 2 R29.6 reports history of falls with fiscal services manager at home to help her and balance issuesrepo rts more than 5 falls/year supportive caremonito r Solitary n odule of lung 830626922 R91.1 question right 4 mm upper lobe nodulecons ider repeat scan in 6-12 months Primary insomnia 9309108 F51.01 continue melatoninm onitor need to titrate Abnormal weight loss 267 209563 R63.4 weight dropped > 12 lbs in a few days from admitappea rs to be error in initial intake weightwill monitor Acute cystitis 94439228 N30.00 now on cefpodoxim e to complete coursemoni tor for recurrent disease [id number] Dori Pena NP [facility] [address] [place] [address] 09/24/2023 09:21:20 09/29/2023 19:39:42 Closed fracture of multiple left ribs 6773430449 0436377 S22.42XG with multiple rib fractures and clavicular [...] in am off pmadjust as needed. Asthenia 69267628 R53.1 PT OT eval and treatmonit or need for increased support in community Type 1 frank betes mellitus 87262009 E10.9 BS controlled conttresib a 30 units qdSS insulinmon itor glucose and need to titrate Hypertensive disorder 38 322706 I10 stable on below regimennor vasc 10 mg qdcoreg 6.25 mg bidlosarta n 100 mg qdcurrentl y elevatedmo nitor need for increased control 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 468654 E06.3 hx of added to PMHmaintai priscilla onsynthroi d 112 mcg qdmonitor tsh prn Gastroesop hageal reflux disease 323242229 K21.9 nexium 40 mg qd continuedm onitor for effect Obesity 431390447 E66.09 dietary eval in patient with baseline DM Rheumatoid arthritis 698 35664 M06.9 remains onenbrel 50 mg q friday Irritable bowel syndrome 55000244 K58.9 ? IBSlinzess 290 mcg q ammonitor Coronary arteriosclerosis 72897503 I25.10 hx of MIatorvast atin 20 mg po dailyclopi dogrel 75 mg po q amsee above htn medsmonito r Recurrent falls 70913728 2 R29.6 reports history of falls with fiscal services manager at home to help her and balance issuesrepo rts more than 5 falls/year supportive caremonito r Primary insomnia 6173927 F51.01 continueme latoninmon itor need to titrate Abnormal weight loss 267 286914 R63.4 weight dropped > 12 lbs in a few days from admitappea rs to be error in initial intake weight6/ reweigh pt todaywill monitor Acute cystitis 51830824 N30.00 now on cefpodoxim e to complete courseaysm ptomaticmo nitor for recurrent disease [id number] Dori Pena, AAKASH [facility] [address] [place] [address] 09/29/2023 10:39:23 10/03/2023 11:24:38 Closed fracture of multiple left ribs 8775720179 8933792 S22.42XG with multiple rib fractures and clavicular [...] to left shoulderad just as needed. Asthenia 54956499 R53.1 PT OT eval and treatmonit or need for increased support in community Type 1 frank betes mellitus 88398547 E10.9 BS controlled conttresib a 30 units qdSS insulinmon itor glucose and need to titrate Hypertensive disorder 38 096345 I10 stable on below regimen with slightly high bp likley related to pain, monitorcon tnorvasc 10 mg qdcoreg 6.25 mg bidlosarta n 100 mg qdcurrentl y elevatedmo nitor need for increased control 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 375911 E06.3 hx of added to PMHmaintai priscilla onsynthroi d 112 mcg qdmonitor tsh prn Gastroesop hageal reflux disease 630533580 K21.9 contnexium 40 mg qdmonitor for effect Obesity 592002608 E66.09 dietary evalbaseli ne DMweight today please Rheumatoid arthritis 698 31162 M06.9 remains onenbrel 50 mg q friday Irritable bowel syndrome 04917804 K58.9 ? IBSlinzess 290 mcg q ammonitor Coronary arteriosclerosis 93248917 I25.10 hx of MIatorvast atin 20 mg po dailyclopi dogrel 75 mg po q amsee above htn medsmonito r Recurrent falls 42142556 2 R29.6 reports history of falls with fiscal services manager at home to help her and balance issuesrepo rts more than 5 falls/year supportive caremonito r Primary insomnia 5578697 F51.01 continueme latoninmon itor need to titrate Abnormal weight loss 267 130270 R63.4 weight dropped > 12 lbs in a few days from admitappea rs to be error in initial intake weight6/10 reweigh pt todaywill monitor Acute cystitis 02631615 N30.00 resolved cefpodoxim e to complete courseaysm ptomaticmo nitor for recurrent disease Mixed anxi ety and depressive disorder 478537844 F41.8 contaripip razole 20 mg dailyvenla faxine 150 mg po dailyprazo sin 6 mg po qhsmelaton in 3 mg po qhshydroxy zine 10 mg po q 8 hours prn anxiety6/1 0 renew clonazepam 0.5 mg po q 8 hours prn anxietymon itor [id number] [facility] [address] 10/02/2023 13:28:32 10/07/2023 10:08:18 Hypertensive disorder 29970995 I10 stable on below regimen as it comes down to 120s systolic post medication contnorvas c 10 mg qdcoreg 6.25 mg bidlosarta n 100 mg qdmonitor need for increased control Closed fra cture of multiple left ribs 6161156435 3265901 S22.42XG with left rib fxs 2-6 with [...] OT eval and txadjust as needed. Asthenia 64498045 R53.1 PT OT eval and treatmonit or need for increased support in community Type 1 frank betes mellitus 38687877 E10.9 BS controlled glucernaco nttresiba 30 units qdSS insulinmon itor glucose and need to titrate Gastroesop hageal reflux disease 973089931 K21.9 contnexium 40 mg qdmonitor for effect Rheumatoid arthritis 698 70526 M06.9 remains onenbrel 50 mg q friday Irritable bowel syndrome 90210222 K58.9 ? IBSlinzess 290 mcg q ammonitor Coronary arteriosclerosis 89404158 I25.10 hx of MIcoreg 6.25 mg po bidatorvas tatin 20 mg po dailyclopi dogrel 75 mg po q amsee above htn medsmonito r Recurrent falls 18803975 2 R29.6 reports history of falls with fiscal services manager at home to help her and balance issuesrepo rts more than 5 falls/year supportive care and therapy here for balance, strengthen ing, gait, mobility, endurancem onitor Abnormal weight loss 267 165687 R63.4 weight dropped > 12 lbs in a few days from admitappea rs to be error in initial intake weight09/28 reweigh pt today10/01 reweight pt today, no weight since 09/21will monitor Mixed anxi ety and depressive disorder 285731817 F41.8 contaripip razole 20 mg dailyvenla faxine 150 mg po dailyprazo sin 6 mg po qhsmelaton in 3 mg po qhshydroxy zine 10 mg po q 8 hours prn anxiety6/ 0 renew clonazepam 0.5 mg po q 8 hours prn anxiety x 14 days10/01 cont as abovemonit or [id number] Dori Pena NP [facility] [address] [place] [address] 10/06/2023 12:02:36 10/09/2023 09:34:42 Closed fracture of multiple left ribs 5514634227 7115659 S22.42XG with left rib fxs 2-6 with [...] txadjust as needed. Abnormal weight loss 267 222431 R63.4 weight dropped > 12 lbs in a few days from admitappea rs to be error in initial intake weight10/04 160 lbs which is same as 09/22/23will monitor Hypertensive disorder 38 493134 I10 stable on below regimen as it comes down to 120s systolic post medication contnorvas c 10 mg qdcoreg 6.25 mg bidlosarta n 100 mg qdmonitor need for increased control Asthenia 27898106 R53.1 PT OT eval and treatmonit or need for increased support in community Type 1 frank betes mellitus 33345914 E10.9 pt having syrup and gingerale at [...] and need to titrate Rheumatoid arthritis 698 77227 M06.9 remains onenbrel 50 mg q friday Irritable bowel syndrome 51502846 K58.9 with constipati on today, states many days10/05 mon given today, will do supp if no bm by 4 pm10/05 start senna 8.6 mg po daily? IBSlinzess 290 mcg q ammonitor Coronary arteriosclerosis 14128338 I25.10 hx of MIcoreg 6.25 mg po bidatorvas tatin 20 mg po dailyclopi dogrel 75 mg po q amsee above htn medsmonito r Mixed anxi ety and depressive disorder 811010176 F41.8 contaripip razole 20 mg dailyvenla faxine 150 mg po dailyprazo sin 6 mg po qhsmelaton in 3 mg po qhshydroxy zine 10 mg po q 8 hours prn anxiety09/19 0 renew clonazepam 0.5 mg po q 8 hours prn anxiety x 14 days10/01 cont as above10/05 stable today with above planmonito r [id number] [facility] [address] 10/08/2023 11:40:06 10/15/2023 15:50:32 Type 1 diabetes mellitus 54208140 E10.9 pt having syrup and gingerale at [...] and need to titrate Irritable bowel syndrome 86920005 K58.9 with constipati on resolved with mom on 7 mon given today10/05 start senna 8.6 mg po daily? IBSlinzess 290 mcg q am10/07 having bm regularly nowmonitor Closed fra cture of multiple left ribs [id number] S22.42XG with left rib fxs 2-6 with [...] txadjust as needed. Abnormal weight loss 267 922344 R63.4 weight dropped > 12 lbs in a few days from admitappea rs to be error in initial intake weight10/04 160 lbs which is same as 09/22/23, ? incorrect admit weight but seems stable nowpremier health monitor Hypertensive disorder 38 418975 I10 stable on below regimen as it comes down to 120s systolic post medication contnorvas c 10 mg qdcoreg 6.25 mg bidlosarta n 100 mg qdmonitor need for increased control Asthenia 13830687 R53.1 PT OT eval and treatmonit or need for increased support in community Rheumatoid arthritis 698 00454 M06.9 remains onenbrel 50 mg q friday Coronary arteriosclerosis 33924632 I25.10 hx of MIcoreg 6.25 mg po bidatorvas tatin 20 mg po dailyclopi dogrel 75 mg po q amsee above htn medsmonito r Mixed anxi ety and depressive disorder 626048590 F41.8 contaripip razole 20 mg dailyvenla faxine 150 mg po dailyprazo sin 6 mg po qhsmelaton in 3 mg po qhshydroxy zine 10 mg po q 8 hours prn anxiety/ 0 renew clonazepam 0.5 mg po q 8 hours prn anxiety x 14 days10/01 cont as above10/05 stable today with above plan10/07 stable today with above planmonito r Hyperkalemia 31510233 E8 7.5 k of 5.7 on give kayexalate 15 gm today10/08 bmp in ammonitor for additional e lyte abbormalit ies [id number] Dori Pena NP [address] [address] 10/09/2023 13:08:06 10/15/2023 16:27:22 Closed fracture of multiple left ribs [id number] 8162971 S22.42XG resolving with left rib fxs 2-6 [...] prnadjust as needed outpt with pcp Hyperkalemia 87432256 E8 7.5 k of 5.7 on give kayexalate 15 gm on 10/07monito r for additional e lyte abnormalit ies outpt with pcp Type 1 frank betes mellitus 33641175 E10.9 BS slightly high while at rehab with eating sugary foods/drin ksPlan: diet sodas and diet syrup and less sugary choicescon tglucernat resiba 30 units qdSS insulin with meals as per home schedmonit or glucose and need to titrate outpt with pcp outpt Irritable bowel syndrome 68598882 K58.9 with constipati on resolvedse nna 8.6 mg po daily (started at rehab)? IBSlinzess 290 mcg q ammonitor with pcp outpt Abnormal weight loss 267 427394 R63.4 weight dropped > 12 lbs in a few days from admitappea rs to be error in initial intake weight10/04 160 lbs which is same as 09/22/23, ? incorrect admit weight but seems stable nowmonitor oupt with pcp Hypertensive disorder 38 756406 I10 stable on below regimen as it comes down to 120s systolic post medication contnorvas c 10 mg qdcoreg 6.25 mg bidlosarta n 100 mg qdmonitor need for increased control outpt with pcp Asthenia 87937377 R53.1 PT OT eval and treat outpt prnmonitor need for increased support in community with pcp Rheumatoid arthritis 698 01695 M06.9 remains onenbrel 50 mg q fridaymoni tor outpt with pcp Coronary arteriosclerosis 08567898 I25.10 hx of MIcoreg 6.25 mg po bidatorvas tatin 20 mg po dailyclopi dogrel 75 mg po q amsee above htn medsmonito r outpt wtih pcp 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 contaripip razole 20 mg dailyvenla faxine 150 mg po dailyprazo sin 6 mg po qhsmelaton in 3 mg po qhshydroxy zine 10 mg po q 8 hours prn anxietyclo nazepam 0.5 mg po q 8 hours prn anxietymon itor outpt with pcp Gastroesop hageal reflux disease 863161537 K21.9 contnexium 40 mg qdmonitor for effect outpt with pcp Recurrent falls 17919122 2 R29.6 reports history of falls with fiscal services manager at home to help her and balance issuesrepo rts more than 5 falls/year supportive care and therapy here for balance, strengthen ing, gait, mobility, endurance outpt rpnmonitor outpt with pcp 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 870724 E06.3 hx of added to PMHmaintai priscilla onsynthroi d 112 mcg qdmonitor tsh prn with pcp Obesity 429986124 E66.09 dietary evalbaseli ne DMweight to be monitored with pcp outpt Primary insomnia 2366395 F51.01 continueme latoninmon itor need to titrate outpt Acute cystitis 64034620 N30.00 resolved cefpodoxim e to complete courseaysm ptomaticmo nitor for recurrent disease outpt with pcp Health Concerns Section Related Observation LastModified by Organization Detai ls LastModified Time None Recorded Concern Status LastModified by Organization Details LastModified Time None Recorded Advance Directives Directive N: Payers Encounter Date Sequence Insurance Name Policy Number Policy Patten Covered Member ID Patten Member ID Guarantor Name 09/29/2023 1 [facility] - DOS ON OR AFTER 2022 - [place]V ANTAGE - PPO) Brandie Luevano [id number] Brandie Luevano 10/02/2023 1 [facility] - DOS ON OR AFTER 2022 [place]/ADV ANTAGE - [place]PO) Brandie Luevano [id number] Brandie Luevano 10/06/2023 1 [facility] - DOS ON OR AFTER 2022 - [place]/ADV ANTAGE - PPO) Brandie Tanga [id number] Brandie Luevano 10/08/2023 1 [facility] - DOS ON OR AFTER 2022 - [place]V ANTAGE - [place]PO) Brandie Luevano [id number] Brandie Luevano 10/09/2023 1 [facility] - DOS ON OR AFTER 2022 - [place]/ADV ANTAGE - PPO) Brandie Luevano [id number] Brandie Luevano Notes Date Note Type Note [...] cane usually Dori Pena, AAKASH [address], [address], [place], [address], [place] [employer] 09/29/2023 11:09:33 10/02/2023 text/html Pt is seen [...] is sitting up in bed with her NET TECHNICAL ARCHITECT visiting. She has her sling in place [...] cane usually Dori Pena, AAKASH [address] [facility], [address], [place], [address], [facility] [employer] 10/02/2023 13:48:50 10/06/2023 text/html Pt is seen for a n acute rounding visit. Brandie is working here at [facility] and is feeling good and more mobile lately with left sling in place. She continues with therapy and making gains. She was treated for a UTI when she first came to [facility] and denies any urinary symptoms. Nursing [...] cane usually Dori Pena NP [address] [facility] [address], [address], [place], [address], [employer] 10/06/2023 12:26:22 10/08/2023 text/html Pt is seen [...] in a sling for comfort. While at [facility]:She was treated for a UTI when she first came to [facility] and denies any urinary symptoms. Nursing [...] cane usually Dori Pena NP [address] [facility] [address] [facility] [address], [address], [place], [address], [employer] 10/08/2023 12:05:52 10/09/2023 text/html Pt is seen [...] in a sling for comfort. While at [facility]:She was treated for a UTI when she first came to [facility] and denies any urinary symptoms. Nursing [...] cane usually Dori Pena NP [address] [facility] [address] [facility] [address], [address], [place], [address], [facility] [employer] 10/09/2023 16:50:56 OBGyn Episode No OBEpisode recorded.
--- OUTSIDE RECORDS SUMMARY | 2024-06-18 10:45 | XMS_ITS | Encounter Summary ---
Author Organization [employer] Address [address] 7[address] [place] [address] Care Team Providers Care Cobol Mainframe Developer Name Role Phone Pascual Daly MD Primary Care Provide r Fani eHck PharmD Unavailable [phone] Reason for Visit * Reason Comments Med Refill Encounter Details Date Type Department Care Team (Late st Contact Info) Description 07/20/2023 Refill [facility] [address] [place] [address] Titi Gray FNP Major depressive disorder with [...] Upcoming Encounters Date Type Department Care Team ([facility] st Contact Info) Description 07/22/2024 10:30 AM EDT Clinical Support [facility] PEDS [address] [place] [address] Amanda Fernández RN [address] [place] [address] 08/03/2024 10:00 AM EDT Office Visit [facility] [address] [place] [address] Pascual Daly MD [address] [place] [address] documented as of this encounter Goals Goal [...] documented as of this encounter Care Teams Cobol Mainframe Developer Relationship Specialty Start Date End Date Pascual Daly MD [address] [place] [address] PCP - General Internal Medicine 02/22/14 Fani Heck, PharmD [address] [place] [address] Pharmacist Internal Medicine 12/16/22 documented as of this encounter
--- OUTSIDE RECORDS SUMMARY | 2024-06-18 10:45 | XMS_ITS | Data Portability ---
Author Organization [employer] Address [address] [place] [address] Care Team Providers Care Fabric Lay Out Worker Name Role Phone [facility] Referring Provider Assessment Encounter Date Assessment Date Assessment LastModified by Organization Details LastModified Time 04/11/2023 04/11/2023 I provided real -time medical direction via phone for this encounter, and was available for additional phone based assistance as needed. I have reviewed and agree with the Assessment and Plan as documented by the Cloth Sander. Patient given the opportunity to ask questions. Advised to call for another visit over the weekend if not improving in 2 to 3 days however if develops CP/severe SOB/turning blue/uncontrolle d n/v/d or black/bloody emesis or stool/ AMS/ syncope/ hi fever unresponsive to APAP to call 911- verbalized understanding of instructions [email or web address] Not available 04/12/2023 10:53:05 Plan of Treatment [...] Not available Not available Not available 04/11/2023 [id number] RxNorm Anitha Camacho MD [address] [facility],[address], [place], [address] [facility] [employer] 3 14:49:47 4127 Celebrex medicatio n Not available Not available Not available 04/11/2023 [id number] RxNoalex Camacho MD [address] [facility],[address], [place], [address], [employer] 14:49:57 4128 tramadol medicatio n Not available Not available Not available 04/11/2023 [id number] RxGeovanny Camacho MD [address] [facility],[address], [place], [address], [employer] 14:50:04 Medications Name Sig Start Date Stop [...] Available Not Available No t Available FreeStyle [place] Lite kit USE DIRECTED active Not Available [...] Updated DateTime 3 97 % 97 % 83580.5 36 g 18 /min 97.8 [degF] 88 /min 167 mm[Hg] 84 mm[Hg] Not Available [employer] - production 3 14:49:26 Social History None recorded. Functional Status None recorded. Mental Status None recorded. Family History Nothing Reported. Medical History No medical history recorded. Gynecological HistoryNo gynecological history recorded. Obstetrics History GPAL:G 0 P 0 0 0 0 Past Encounters Encounter ID Performer Location Encounter Start Date Encounter Closed Date Diagnosis/Indication Diagnosis SNOMED-CT Code Diagnosis ICD10 Code Diagnosis Note [id number] Anitha Camacho MD Main - [facility] [address] [place] [address] 04/11/2023 14:49:23 04/12/2023 10:53:58 Respiratory syncytial virus infection 41463460 B97.4 Continue medication s as prescribed ., [...] [facility] - DOS ON OR AFTER 2022 - DUAL ELIGIBLE - [facility] (MEDICARE REPLACEMENT/ADV ANTAGE - HMO) Brandie Santana [id number] Brandie Ryanyes Notes Date Note Type Note Provider Name and Address Organization Details Recorded Time 04/11/2023 text/html HPI: 73 year old, Puerto Rican speaking member, F, with hx of DM, HTN, Asthma, Depression, hx of falls and chronic pain, reporting worsesing Productive cough, shortness of breath with activities and fatigue, worsening head aches, treated at [facility] on 04/10/23 and dx with RSV. Reported has fever and chills, believes her BP is high. Her CLINICAL SCIENCE CONSULTANT worker is with her and member asked [...] .................. .................. .................. .................. .................. .................. ............... Cloth Sander Note From Teddy Miranda: Pt sts dis not call for Locality. [facility] set up appt. Pt was in ER yesterday diagnosed with RSV treated RX for ventalin and prednisone. Pt denies cp sob fever nausea diarrhea. Baseline vitals assessed. Lungs clear. No edema. [facility] contacted ..pt declined benzonatate. Pt advised self care and continue with RX meds. Pt education on signs indicating the ER. Cloth Sander Allergies: Lorazepam .................. .................. .................. .................. .................. .................. .................. ............... Disposition: Fulfilled Comments: Reviewed - Johana RNSEGMD: Patient seen yesterday evening [facility]. COvid negative per patient/ RSV +/She is using her albuterol every 4 hours. She is on prednisone. No nausea vomiting.Pat has hx that includes but not limited to: DM2/COPD/HTN/Fe deficiency anemia/hypothyroid ism/MDD with psychotic features/obesity status post laparoscopic gastrectomy/positi ve SUSAN/fibromyalgia. Anitha Camacho MD [address] [facility],[address], [place], [address], [place] - [employer] 04/12/2023 10:53:56 OBGyn Episode No OBEpisode recorded.
--- OUTSIDE RECORDS SUMMARY | 2024-06-18 10:45 | XMS_ITS | Encounter Summary ---
Author Organization [employer] Address [address] [facility] 7t [place] [address] Care Team Providers Care Sticker Machine Operator Name Role Phone Pascual Daly MD Primary Care Provide r Fani Heck PharmD Unavailable [phone] Reason for Visit * Reason Comments Med Refill Encounter Details Date Type Department Care Team (Late Contact Info) Description 08/08/2022 Refill [facility] [address] [place] [address] Momo Rizo MD [address] [place] [address] Mild intermittent asthma without complication Social History [...] 07/22/2024 10:30 AM EDT Clinical Support [facility] PEDS [address] [place] [address] Amanda Fernández, AALIYAH [address] [place] [address] 08/03/2024 10:00 AM EDT Office Visit [facility] [address] [place] [address] Pascual Daly MD [address] [place] [address] documented as of this encounter Goals Goal [...] documented as of this encounter Care Teams Sticker Machine Operator Relationship Specialty Start Date End Date Pascual Daly MD [address] [place] [address] PCP - General Internal Medicine 02/22/14 Fani Heck, PharmD [address] [place] [address] Pharmacist Internal Medicine 12/16/22 documented as of this encounter
--- OUTSIDE RECORDS SUMMARY | 2024-06-18 10:45 | XMS_ITS | Encounter Summary ---
Author Organization [employer] Address [address] [place] [address] Care Team Providers Care University Manager Name Role Phone Pascual Daly MD Primary Care Provide r Fani Heck PharmD Unavailable [phone] Reason for Visit * Reason Comments Med Refill Encounter Details Date Type Department Care Team (Late st Contact Info) Description 01/14/2024 Refill [facility] P[facility] [address] [place] [address] Pascual Daly MD [address] [place], [place] [phone] Fibromyalgia Social History Tobacco Use Types Packs/Day [...] Description 07/22/2024 10:30 AM EDT Clinical Support [facility] [address] [place] [address] Amanda Fernández, AALIYAH [address] [place] [address] 08/03/2024 10:00 AM EDT Office Visit [facility] [address] [place] [address] Pascual Daly MD [address] [place] [address] documented as of this encounter Goals Goal [...] documented as of this encounter Care Teams University Manager Relationship Specialty Start Date End Date Pascual Daly MD [address] [place] [address] PCP - General Internal Medicine 02/22/14 Fani Heck, KristiD [address] [place] [address] [place] [phone] Pharmacist Internal Medicine 12/16/22 documented as of this encounter
--- OUTSIDE RECORDS SUMMARY | 2024-06-18 10:45 | XMS_ITS | Encounter Summary ---
Author Organization [employer] Address [address] [facility] 7t [place] [address] Care Team Providers Care Global Supply Chain Director Name Role Phone Pascual Daly MD Primary Care Provide r Fani Heck PharmD Unavailable [phone] Reason for Visit * Reason Onset Date Comments Med Refill 01/13/2024 Encounter Details Date Type Department Care Team ([facility] st Contact Info) Description 01/13/2024 Telephone [facility] [address] [place] [address] Pascual Daly MD [address] [place] [address] Med Refill Social History Tobacco Use Types [...] immediate release tablet To be sent to: [facility] - [place], [place] - [address] [place] [address] documented in this encounter Plan of Treatment Upcoming Encounters Date Type Department Care Team ([facility] st Contact Info) Description 07/22/2024 10:30 AM EDT Clinical Support [facility] [address] [place] [address] Amanda Fernández RN [address] [place] [address] 08/03/2024 10:00 AM EDT Office Visit [facility] [address] [place] [address] Pascual Daly MD [address] [place] [address] documented as of this encounter Goals Goal [...] documented as of this encounter Care Teams Global Supply Chain Director Relationship Specialty Start Date End Date Pascual Daly MD [address] [place] [address] PCP - General Internal Medicine 02/22/14 Fani Heck, PharmD [address] [place] [address] Pharmacist Internal Medicine 12/16/22 documented as of this encounter
--- OUTSIDE RECORDS SUMMARY | 2024-06-18 10:45 | XMS_ITS | Encounter Summary ---
Author Organization [employer] Address [address] [place] [address] Care Team Providers Care Assorter Laundry Name Role Phone Pascual Daly MD Primary Care Provide r Fani Heck PharmD Unavailable [phone] Encounter Details Date Type Department Care Team ([facility] st Contact Info) Description 09/25/2023 Telephone [facility] [address] [place] [address] Pascual Daly MD [address] [place] [address] Social History Tobacco Use Types Packs/Day Years [...] 10:30 AM EDT Clinical Support [facility] [address] [place] [address] Amanda Fernández, RN [address] [place] [address] 08/03/2024 10:00 AM EDT Office Visit [facility] [address] [place] [address] Pascual Daly MD [address] [place] [address] documented as of this encounter Goals Goal [...] documented as of this encounter Care Teams Assorter Laundry Relationship Specialty Start Date End Date Pascual Daly MD [address] [place] [address] PCP - General Internal Medicine 11/4/14 Fani Heck, KristiD [address] [place] [address] Pharmacist Internal Medicine 12/16/22 documented as of this encounter
--- OUTSIDE RECORDS SUMMARY | 2024-06-18 10:45 | XMS_ITS | Encounter Summary ---
Author Organization [employer] Address [address] [facility] 7t [place] [address] Care Team Providers Care Journalism Professor Name Role Phone Pascual Daly MD Primary Care Provide r Fani Heck PharmD Unavailable [phone] Encounter Details Date Type Department Care Team (Late Contact Info) Description 07/01/2022 Abstract [facility] [address] [place] [address] Pascual Daly MD [address] [place] [address] Social History Tobacco Use Types Packs/Day Years [...] 07/22/2024 10:30 AM EDT Clinical Support [facility] PEDS [address] [place] [address] Amanda Fernández, AALIYAH [address] [place] [address] 08/03/2024 10:00 AM EDT Office Visit [facility] [address] [place] [address] Pascual Daly MD [address] [place] [address] documented as of this encounter Goals Goal [...] documented as of this encounter Care Teams Journalism Professor Relationship Specialty Start Date End Date Pascual Daly MD [address] [place] [address] PCP - General Internal Medicine 02/22/14 Fani Heck, PharmD [address] [place] [address] Pharmacist Internal Medicine 12/16/22 documented as of this encounter
--- OUTSIDE RECORDS SUMMARY | 2024-06-18 10:45 | XMS_ITS | Encounter Summary ---
Author Organization [employer] Address [address] [place] [address] Care Team Providers Care Child Support Specialist Name Role Phone Pascual Daly MD Primary Care Provide r Fani Heck PharmD Unavailable [phone] Reason for Visit * Reason Comments Med Refill Encounter Details Date Type Department Care Team (Late st Contact Info) Description 01/01/2024 Refill [facility] [address] [place] [address] [phone] Momo Rizo MD [address] [place] [address] Social History Tobacco Use Types Packs/Day Years [...] 10:30 AM EDT Clinical Support [facility] PEDS [address] [place] [address] Amanda Fernández RN [address] [place] [address] 08/03/2024 10:00 AM EDT Office Visit [facility] [address] [place] [address] Pascual Daly MD [address] [place] [address] documented as of this encounter Goals Goal [...] documented as of this encounter Care Teams Child Support Specialist Relationship Specialty Start Date End Date Pascual Daly MD [address] [place] [address] PCP - General Internal Medicine 02/22/14 Fani Heck, Woody [address] [place] [address] Pharmacist Internal Medicine 12/16/22 documented as of this encounter
--- OUTSIDE RECORDS SUMMARY | 2024-06-18 10:45 | XMS_ITS | Encounter Summary ---
Author Organization [employer] Address [address] [facility] 7t [place] [address] Care Team Providers Care Plant Care Worker Name Role Phone Pascual Daly MD Primary Care Provide r Fani Heck PharmD Unavailable [phone] Encounter Details Date Type Department Care Team (Late Contact Info) Description 08/29/2022 Abstract [facility] [address] [place] [address] Pascual Daly MD [address] [place] [address] Social History Tobacco Use Types Packs/Day Years [...] [facility] [address] [place] [address] Amanda Fernández, AALIYAH [address] [place], [place] 08/03/2024 10:00 AM EDT Office Visit [facility] [address] [place] [address] Pascual Daly MD [address] [place] [address] documented as of this encounter Goals Goal [...] documented as of this encounter Care Teams Plant Care Worker Relationship Specialty Start Date End Date Pascual Daly MD [address] [place], [place] [phone] PCP - General Internal Medicine 02/22/14 Fani Heck PharmD [address] [place], [place] [phone] Pharmacist Internal Medicine 12/16/22 documented as of this encounter
--- OUTSIDE RECORDS SUMMARY | 2024-06-18 10:45 | XMS_ITS | Encounter Summary ---
Author Organization [employer] Address [address] [facility] 7t [place] [address] Care Team Providers Care Valance Cutter Name Role Phone Pascual Daly MD Primary Care Provide r Fani Heck PharmD Unavailable [phone] Reason for Visit * Reason Comments Med Refill Encounter Details Date Type Department Care Team (Late st Contact Info) Description 09/26/2023 Refill [facility] MEDICINE [address] [place] [address] Pascual Daly MD 230 [place], [place] [phone] Social History Tobacco Use Types Packs/Day Years [...] [facility] [address] [place] [address] Amanda Fernández, AALIYAH 505 [place] [address] 08/03/2024 10:00 AM EDT Office Visit [facility] MEDICINE 230 [place] [address] Pascual Daly MD 230 [place] [address] documented as of this encounter Goals Goal [...] documented as of this encounter Care Teams Valance Cutter Relationship Specialty Start Date End Date Pascual Daly MD 230 [place] [address] PCP - General Internal Medicine 02/22/14 Fani Heck, Woody [address] [place] [address] Pharmacist Internal Medicine 12/16/22 documented as of this encounter
--- OUTSIDE RECORDS SUMMARY | 2024-06-18 10:46 | XMS_ITS | Encounter Summary ---
Author Organization [employer] Address 75 [facility] 7t [place] [address] Care Team Providers Care Serging Machine Operator Name Role Phone Pascual Daly MD Primary Care Provide r Fani Heck PharmD Unavailable [phone] Reason for Visit * Reason Comments Med Refill Encounter Details Date Type Department Care Team (Late st Contact Info) Description 05/31/2024 Refill [facility] MEDICINE 230 [place] [address] Nikia Jeter MD 230 [place] [address] Type 2 diabetes mellitus without complication, with long-term current use of insulin ([facility]); Benign hypertension Social History Tobacco [...] [facility] 505 [place] [address] Amanda Fernández, AALIYAH 505 [place] [address] 08/03/2024 10:00 AM EDT Office Visit [facility] MEDICINE 230 [place] [address] Pascual Daly MD 230 [place] [address] documented as of this encounter Goals Goal Patient Goal Type Associated Problems Recent Progress Patient-Stated? Author Blood Pressure < 140/90 Blood Pressure 133/70( 025 11:28 AM EST) No Fani Heck, KristiD documented as of this encounter Visit Diagnoses Diagnosis Type 2 diabetes mellitus without complication, with long-term current use of insulin ([facility]) Benign hypertension Essential hypertension, benign documented in this encounter Additional Health Concerns Assessment Noted Time PHQ-9 Depression Total Score: 9 01/29/20 24 11:00 AM EDT documented as of this encounter Care Teams Serging Machine Operator Relationship Specialty Start Date End Date Farfan Harrison, Pascual, MD 230 [place] [address] PCP - General Internal Medicine 02/22/14 Fani Heck PharmD 230 [place] [address] Pharmacist Internal Medicine 12/16/22 documented as of this encounter
--- OUTSIDE RECORDS SUMMARY | 2024-06-18 10:46 | XMS_ITS | Encounter Summary ---
Author Organization [employer] Address [address] [facility] 7t [place] [address] Care Team Providers Care Accessioner Name Role Phone Pascual Daly MD Primary Care Provide r Fani Heck PharmD Unavailable [phone] Reason for Visit * Reason Onset Date Comments FYI 12/31/2023 Encounter Details Date Type Department Care Team ([facility] st Contact Info) Description 12/31/2023 Telephone [facility] MEDICINE 230 [place] [address] Pascual Daly MD 230 [place] [address] FYI Social History Tobacco Use Types Packs/Day [...] any questions you can contact Franky at [phone]. documented in this encounter Plan of Treatment Upcoming Encounters Date Type Department Care Team ([facility] st Contact Info) Description 07/22/2024 10:30 AM EDT Clinical Support [facility] MED & PEDS [address] [place] [address] Amanda Fernández, AALIYAH 505 [place] [address] 08/03/2024 10:00 AM EDT Office Visit [facility] MEDICINE 230 [place] [address] Pascual Daly MD [address] [place] [address] documented as of this encounter Goals Goal [...] documented as of this encounter Care Teams Accessioner Relationship Specialty Start Date End Date Pascual Daly MD 230 [place] [address] PCP - General Internal Medicine 02/22/14 Fani Heck, PharmD 230 [place] [address] Pharmacist Internal Medicine 12/16/22 documented as of this encounter
--- OUTSIDE RECORDS SUMMARY | 2024-06-18 10:46 | XMS_ITS | Encounter Summary ---
Author Organization [employer] Address 75 [facility] 7t [place] [address] Care Team Providers Care Lead Ruby On Rails Developer Name Role Phone Pascual Daly MD Primary Care Provide r Fani Heck PharmD Unavailable [phone] Reason for Visit * Reason Onset Date Comments FYI 12/11/2023 Durable Medical Equipment 12/11/2023 Encounter Details Date Type Department Care Team ([facility] st Contact Info) Description 12/11/2023 Telephone [facility] MEDICINE [address] [place], [place] [phone] Pascual Daly MD 230 [place], [place] [phone] FYI ; Durable Medical Equipment Social History [...] two DME scripts to be sent to [facility] which: [facility] bed Please fax over to [phone] documented in this encounter Plan of Treatment Upcoming Encounters Date Type Department Care Team (Late st Contact Info) Description 07/22/2024 10:30 AM EDT Clinical Support [facility] MED [facility] PEDS 505 [place] [address] Amanda Fernández RN 505 [place] [address] 08/03/2024 10:00 AM EDT Office Visit [facility] MEDICINE [address] [place] [address] Pascual Daly MD 230 [place] [address] documented as of this encounter Goals Goal [...] documented as of this encounter Care Teams Lead Ruby On Rails Developer Relationship Specialty Start Date End Date Pascual Daly MD 230 [place] [address] PCP - General Internal Medicine 02/22/14 Fani Heck, KristiD [address] [place] [address] Pharmacist Internal Medicine 12/16/22 documented as of this encounter
--- OUTSIDE RECORDS SUMMARY | 2024-06-18 10:46 | XMS_ITS | Encounter Summary ---
Author Organization [employer] Address 75 [facility] 7t [place] [address] Care Team Providers Care University President Name Role Phone Pascual Daly MD Primary Care Provide r Fani Heck PharmD Unavailable [phone] Encounter Details Date Type Department Care Team (Late st Contact Info) Description 05/29/2022 Abstract [facility] MEDICINE 230 [place] [address] Pascual Daly MD 230 [place] [address] Social History Tobacco Use Types Packs/Day Years [...] Description 07/22/2024 10:30 AM EDT Clinical Support [facility] CH[facility] MED & PEDS [address] [place] [address] Amanda Fernández, RN [address] [facility] [place], [place] 08/03/2024 10:00 AM EDT Office Visit [facility] MEDICINE 230 [facility] [address] Pascual Daly MD 230 [facility] [place] [address] documented as of this encounter Goals Goal [...] as of this encounter Care Teams University President Relationship Specialty Start Date End Date Pascual Daly MD [address] [facility] [place] [address] PCP - General Internal Medicine 02/22/14 Fani Heck PharmD [facility] [place] [address] Pharmacist Internal Medicine 12/16/22 documented as of this encounter
--- OUTSIDE RECORDS SUMMARY | 2024-06-18 10:46 | XMS_ITS | Encounter Summary ---
Author Organization [employer] Address 75 [facility] 7t [place] [address] Care Team Providers Care Insole Cementer Name Role Phone Pascual Daly MD Primary Care Provide r Fani Heck PharmD Unavailable [phone] Encounter Details Date Type Department Care Team (Late st Contact Info) Description 03/11/2022 Abstract [facility] MEDICINE [address] [place] [address] Pascual Daly MD 230 [place] [address] Social History Tobacco Use Types Packs/Day Years [...] Description 07/22/2024 10:30 AM EDT Clinical Support [facility] CH[facility] MED & PEDS 505 [place], [place] [phone] Amanda Fernández, AALIYAH 505 [place] [address] 08/03/2024 10:00 AM EDT Office Visit [facility] MEDICINE [address] [place] [address] Pascual Daly MD 230 [place] [address] documented as of this encounter Visit Diagnoses Not on filedocumented in this encounter Care Teams Insole Cementer Relationship Specialty Start Date End Date Pascual Daly MD [address] [place] [phone] PCP - General Internal Medicine 02/22/14 Fani Heck PharmD [address] [place] [phone] Pharmacist Internal Medicine 12/16/22 documented as of this encounter
--- OUTSIDE RECORDS SUMMARY | 2024-06-18 10:46 | XMS_ITS | Encounter Summary ---
Author Organization [employer] Address [address] [facility] 7t [place] [address] Care Team Providers Care Clam Treader Name Role Phone Pascual Daly MD Primary Care Provide r Fani Heck PharmD Unavailable [phone] Reason for Visit * Reason Comments Med Refill Encounter Details Date Type Department Care Team (Late st Contact Info) Description 03/04/2023 Refill [facility] MEDICINE 230 [place] [address] Pascual Daly MD 230 [place], [place] [phone] Type 2 diabetes mellitus without complication, with long-term current use of insulin ([facility]) Social History Tobacco [...] Description 07/22/2024 10:30 AM EDT Clinical Support [facility] MED & PEDS 505 [place] [address] Amanda Fernández, AALIYAH 505 [place] [address] 08/03/2024 10:00 AM EDT Office Visit [facility] MEDICINE 230 [place] [address] Pascual Daly MD 230 [place] [address] documented as of this encounter Goals Goal Patient Goal Type Associated Problems Recent Progress Patient-Stated? Author Blood Pressure < 140/90 Blood Pressure 133/70( 025 11:28 AM EST) No Fani Heck, KristiD documented as of this encounter Visit Diagnoses Diagnosis Type 2 diabetes mellitus without complication, with long-term current use of insulin ([facility]) documented in this encounter Additional Health Concerns Assessment Noted Time PHQ-9 Depression Total Score: 9 02/25/20 23 11:02 AM EST documented as of this encounter Care Teams Clam Treader Relationship Specialty Start Date End Date Pascual Daly MD 230 [place] [address] PCP - General Internal Medicine 02/22/14 Fani Heck, KristiD 230 [place] [address] Pharmacist Internal Medicine 12/16/22 documented as of this encounter
--- OUTSIDE RECORDS SUMMARY | 2024-06-18 10:46 | XMS_ITS ---
Author Organization [facility] Address [address] [place] [address] Care Team Providers Care Veterinary Inspector Name Role Phone Adolph Terry MD, Pascual Primary Care Provide r Vidal Castillo Jr, Cortes Unavailable [phone] Zeb Tang Unavailable Unavailable Encounters Encounter Location Date Provider Diagnosis [facility] [address] [place] [address] 03/01/2024 Cortes Castillo Jr PLAN OF TREATMENT Next Appt Details Provider Name:Cortes wilburn Jr, 12/01/2024 09:20:00 AM, [address], [address], [place], [address],
--- OUTSIDE RECORDS SUMMARY | 2024-06-18 10:46 | XMS_ITS | Encounter Summary ---
Author Organization [employer] Address 75 [facility] 7t [place] [address] Care Team Providers Care Secretary Bookkeeper Name Role Phone Pascual Daly MD Primary Care Provide r Fani Heck PharmD Unavailable [phone] Reason for Visit * Reason Comments Med Refill Encounter Details Date Type Department Care Team ([facility] st Contact Info) Description 07/16/2022 Refill [facility] MEDICINE 230 [place] [address] Pascual Daly MD 230 [place], [place] [phone] Social History Tobacco Use Types Packs/Day Years [...] [facility] 505 [place] [address] Amanda Fernández, RN 505 [place], [place] 08/03/2024 10:00 AM EDT Office Visit [facility] MEDICINE 230 [place] [address] Pascual Daly MD 230 [place] [address] documented as of this encounter Goals Goal [...] documented as of this encounter Care Teams Secretary Bookkeeper Relationship Specialty Start Date End Date Pascual Daly MD [address] [place] [id number] PCP - General Internal Medicine 02/22/14 Fani Heck, PharmD [address] [place] [address] Pharmacist Internal Medicine 12/16/22 documented as of this encounter
--- OUTSIDE RECORDS SUMMARY | 2024-06-18 10:46 | XMS_ITS | Clinical Summary ---
Author Organization [employer] Address [address] [facility] 7t [place] [address] Care Team Providers Care Pest Control Applicator Name Role Phone Pascual Daly MD Primary Care Provide r Fani Heck PharmD Unavailable [phone] Allergies Active Allergy Reactions Criticality Noted Date [...] complication, with long-term current use of insulin ([facility]) TAKE 1 TABLET BY MOUTH [...] – SEILING 09/09/23 after she presented to [place] emergency room due to left-sided chest discomfort as per patient she was visiting family in [place], on August 26 she turned in high [...] (08/27/2022 10:19 AM EDT): followed by a junior web developer. 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 - Follow-up in [facility] in November. Repeat BMP and A1c prior [...] the care of Endocrinology office Vashti Glass CASINO ASSISTANT MANAGER, last seen 03/17/2024 and follows with RN [...] f/u She is under the care of Lift Electrician Dr Sprague, last seen 12/31/2023 On a [...] f/u She is under the care of [employer] Dr Sprague, last seen 10/16/2023 On a [...] f/u She is under the care of L[employer] Dr Sprague, has a follow up with [...] f/u She is under the care of L[employer] Dr Sprague, has a follow up at [...] was referred to Dr. Manjinder Gonsales at [facility] as her medical insurance recommended this [...] factors. LDL-C is now calculated using the [facility] calculation, which is a validated novel method providing better accuracy than the Friedewald equation in the estimation of LDL-C. Melquiades WALLACE et al. TEN. 2013;310(55): 7670-3506 (http://education.HobbyTalk/faq/AKS078) Chol/HDLC Ratio <5.0 (calc) 4.2 3.7 2.5 [...] DEPARTMENT Provider, Generic External Data 06/10/2024 Refill [facility] [address], [place] [address] Pascual Daly MD Fibromyalgia 06/04/2024 Orders Only GENERIC EXTERNAL DATA DEPARTMENT Provider, Generic External Data 05/31/2024 Refill [facility] [address], [place] [address] Nikia Jeter MD Type 2 diabetes mellitus without complication, with long-term current use of insulin ([facility]); Benign hypertension 05/24/2024 Refill [facility] [address], [place] [address] Pascual Daly MD Benign hypertension 05/18/2024 Orders Only GENERIC EXTERNAL DATA DEPARTMENT Provider, Generic External Data 05/13/2024 Telephone [facility] [address], [place] [address] Pascual Daly MD Med Refill 05/13/2024 Refill [facility] [address], [place] [address] Pascual Daly MD Fibromyalgia 05/05/2024 11:30 AM EST Office Visit [facility] [address], [place] [address] Ammy Owen, DDS Aphthous ulcer (Primary Dx) 05/04/2024 10:15 AM EST Office Visit [facility] [address], [place] [address] Pascual Daly MD Type 2 diabetes mellitus without complication, with long-term current use of insulin ([facility]) (Primary Dx); Primary hypertension; Mixed hyperlipidemia; Recurrent falls 05/04/2024 Travel 04/27/2024 9:30 AM EST Clinical Support [facility] [address] [place] [address] Amanda Fernández RN Closed fracture of multiple ribs of left side with routine healing 04/27/2024 Travel 04/22/2024 Refill [facility] [address] [place] [address] Pascual Daly MD Mild intermittent asthma without complication 04/19/2024 Telephone [facility] [address] [place], [place] [phone] Pascual Daly MD Chart Prep 04/08/2024 Refill [facility] [address] [place], [place] [phone] Pascual Daly MD Fibromyalgia from Last 3 Months Immunizations Name [...] Description 07/22/2024 10:30 AM EDT Clinical Support [facility] [address] [place] [address] Amanda Fernández, AALIYAH 505 [place] [address] 08/03/2024 10:00 AM EDT Office Visit [facility] [address] [place] [address] Pascual Daly MD [address] [place] [address] Health Maintenance Due Date Last Done Comments [...] 03/05/2021, Additional history exists Mammogram 06/05/2024 06/05/2023, 02/0 05/2022, 05/23/2022, Additional history exists Diabetes: Urine [...] Procedure Name Priority Date/Time Associated Diagnosis Comments CALCIUM, IONIZED Routine 06/15/2024 11:0 9 AM EST PTH, INTACT WITHOUT CALCIUM Routine 06/15/2024 11:09 [...] complication, with long-term current use of insulin ([facility]) POCT GLYCATED HEMOGLOBIN, TOTAL Routine 05/04/2024 10:16 AM EST Type 2 diabetes mellitus without complication, with long-term current use of insulin ([facility]) POCT HEATHER-14 URINE DRUG SCREEN Routine 04/27/2024 9:44 AM EST Closed fracture of multiple ribs of left side with routine healing LIPID PANEL, STANDARD Routine 10/31/2023 10:42 AM [...] Hormone, Intact 101.8(H) 8.7 - 77.1 pg/mL [facility] 06/15/2024 11:0 9 AM EST 06/15/2024 11:13 AM EST Generic External Data Provider LAB BLOOD ORDERAB LES Final Result Performing Organization Address [facility]/ZIP Co de Phone Number [facility] [address] [place] [address] [phone] * Calcium, Ionized (06/15/2024 11:09 AM EST) Calcium, Ionized 5.3 4.7 - 5.5 mg/dL [facility] Comment:THIS TEST WAS PERFOR MED AT:[employer] [place] [id number] HURLEY MD 06/15/2024 11:0 9 AM EST 06/15/2024 11:13 AM EST us Generic External Data Provider LAB BLOOD ORDERAB LES Final Result Performing Organization Address City/[facility]/ZIP Co de Phone Number [facility] [address] [place] [phone] * Glucose, Whole Blood (06/15/2024 10:16 AM EST) Only the most recent of3 resultswithin the time period is included. Glucose, Whole Blood 105 60 - 115 mg/dL [facility] Comment:METER #: [id number] Testing performed in the Endocrinology Department [address] , [address], [facility]. 06/15/2024 10:1 6 AM EST 06/15/2024 10:21 AM EST Generic External Data Provider LAB BLOOD ORDERAB LES Final Result [facility] [address] [place] [phone] * (ABNORMAL) POCT HGB A1C (05/04/2024 [...] RN - 04/27/2024 9:44 AM EST Lot# [id number] Exp: 03-27-25 Pascual Terry MD POINT OF CARE TEST EN TER/EDIT ORDERABLES Final Result * (ABNORMAL) Lipid Panel, Standard (10/31/2023 10:42 AM EDT) Triglycerides 74 <150 mg/dL [facility] Comment:Desirable Triglyceri de: less than 150 mg/dLBorderline High Triglyceride 150-199 mg/dLHigh Triglyceride: 200-499 mg/dLVery High Triglyceride: greater than or equal to 5OO mg/dL Cholesterol 95 <200 mg/dL [facility] Comment:Desirable Cholestero l: less than 200 mg/dLBorderline High Cholesterol: 200-239 mg/dLHigh Cholesterol: greater than 239 mg/dL LDL Cholesterol Calculated 43 <100 mg/dL [facility] Comment:Desirable LDL: less than 100 mg/dLNear Optimal/Above Optimal LDL: 110- 129 mg/dLBorderline High LDL: 130-159 mg/dLHigh LDL: 160-189 mg/dLVery High LDL: greater than or equal to 190 mg/dL HDL Cholesterol 38(L) >40 mg/dL [facility] Comment:Desirable HDL: great er than 40 mg/dL Note: This HDL assay may give artificially low results in patients with liver disease. 10/31/2023 10:4 2 AM EDT 10/31/2023 10:42 AM EDT us Generic External Data Provider LAB BLOOD ORDERAB LES Final Result [facility] [address] [place], [place] [phone] * (ABNORMAL) Albumin, Random Urine W/Creatinine (07/02/2023 10:06 AM EDT) Creatinine, Urine 163.81 mg/dL [facility] Microalbumin Urine 59.0 mg/L H [facility] Microalbum Creatinine Ratio Ur 36.0(H) <30 ug/mg cr [facility] Comment:Albumin/Creatinine R atio Reference Ranges: Normal: < 30 ug/mg creatinine Microalbuminuria: 30 - 300 ug/mg creatinineClinical Albuminuria: > 300 ug/mg creatinine 07/02/2023 10:0 6 AM EDT 07/02/2023 11:41 AM EDT us Generic External Data Provider LAB URINE ORDERAB LES Final Result [facility] [address] [facility] [place] [address] [phone] * BI Mammogram Screening Tomosynthesis Bilateral (06/05/2023 11:00 AM EST) Anatomical Region Laterality Modality Breast Bilateral Mammography 06/05/2023 11:0 0 AM EST Narrative 07/01/2023 11:45 AM EDT ? [facility] ? [address] ?[place] [address] ? Mammography Report ? Signed ? Patient: Max,Brandie ?MR#: [id number] ? : 1950 ?Acct:[id number] ? Age/Sex: 73 / F ?ADM Date: 06/05/23 ? Loc: HO.MAMMO ? Attending Dr: Mohamed Talaat MD ? Ordering Physician: Talaat,Mohamed MD ?Results: 1Negat ?? juaquin ? Date of Service: 06/05/23 ?Follow Up: 1 Year From Orig ?? inal Mammogram ? Procedure(s): MM tomosynthesis screening BI ?? Accession Number(s): [id number] ? cc: Pascual Darnell MD; Briseida Rocha [...] 1141 ? DD/ 1100 ? TD/TT: ? Hot Mix Operator: ? Procedure Note Silvestre, Image - 07/01/2023 [facility] [address] [place] [address] [place] [address] Mammography Report Signed Patient: Dino Santana#: [id number] : 1950Acct:[id number] Age/Sex: 73 / FADM Date: 06/05/23 Loc: [facility] Attending Dr: Briseida Rocha MD Ordering Physician: Briseida Rohca MDResults: 1Negat juaquin Date of Service: 06/05/23Follow Up: 1 Year From Orig inal Mammogram Procedure(s): MM tomosynthesis screening BI Accession Number(s): [id number] cc: Pascual Darnell MD; Briseida Rocha MD [...] in OV> 07/01/23 1141 DD/ 1100 TD/TT: Hot Mix Operator: [facility] External Provider IMG BI PROCEDURES Final Result * Hepatitis C Viral RNA, Genotype, LiPA (01/15/2023 11:08 AM EDT) Hepatitis C Genotype Not Detected [facility] Comment: Genotype not detected due [...] characteristics of thisassay have been determined by [facility] [place], [place]. ??The modificationshave not been cleared or approved by the FDA. ??Thisassay has been validated pursuant to the CLIAregulations and is used for clinical purposes.For additional information, please refer tohttp://education.HobbyTalk/faq/HCVGenotyping(This link is being provided for informational/educational purposes only.)THIS TEST WAS PERFORMED AT:[employer] [id number] [place] [address]JCXGZWDJOHN CORDON MD,PHD 01/15/2023 11:0 8 AM EDT 01/15/2023 11:08 AM EDT [facility] External Provider LAB BLO OD ORDERABLES Final Result Performing Organization Address City/State/[facility] Co de Phone Number [facility] [address] [place] [phone] * Colonoscopy (03/20/2018) Colonoscopy Normal Normal 03/20/2018 Narrative Sondra Rowe - 03/20/2018 9:09 AM EST Recommended 10 year follow up Historical Provider HEALTH MAINTENANCE Edited Result - Final from Last 3 Months or Most Recently Relevant to Health Maintenance [place] [address] [place] [address] DENT[place] - [place] [address] Care Teams Pest Control Applicator Relationship Specialty Start Date End Date Pascual Daly MD [address] [place] [address] PCP - General Internal Medicine 02/22/14 Fani Heck, KristiD [address] [place] [address] Pharmacist Internal Medicine 12/16/22
--- OUTSIDE RECORDS SUMMARY | 2024-06-18 10:46 | XMS_ITS ---
Author Organization [facility] Address [address] [place] [address] Care Team Providers Care Oncology Research Rn Name Role Phone Adolph Terry MD, Pascual Primary Care Provide r Unavailable Cortes Castillo Jr Unavailable ClydeZeb peña Unavailable Unavailable ALLERGIES Allergen (clinical drug ingredient) Drug/Non Drug Allergy documented on EMR Reaction Allergy Type Onset Date Status naproxen Naproxen Unknown Drug Allergy Active lorazepam Lorazepam Unknown Drug Allergy Active celecoxib Celebrex Unknown Drug Allergy Active zolpidem Ambien Unknown Drug Allergy Active tramadol Tramadol HCl Unknown Drug Allergy Acti ve REASON FOR VISIT Patient presents today for [...] Problem Colon cancer screening (Z12.11) Active confirmed [id number] VITAL SIGNS Temperature 97.9 degrees Fahrenheit 11/24/19 24 Blood pressure systolic 000 mm Hg 11/24/19 24 Blood pressure diastolic 00 mm Hg 024 Height 59 in 11/24/2023 Weight 155 lb 4 oz lbs 11/24/2023 BMI 31.35 kg/m2 11/24/2023 Encounters Encounter Location Date Provider Diagnosis [facility] [address] [place] [address] 11/24/2023 Cortes Castillo Jr Gastroesophageal reflux disease [...] 1 Year, Reason: Provider Name:Cortes wilburn Jr, 12/01/2024 09:20:00 AM, [address], [address], [place], [address],
--- OUTSIDE RECORDS SUMMARY | 2024-06-18 10:46 | XMS_ITS | Encounter Summary ---
Author Organization [employer] Address [address] 7t [place] [address] Care Team Providers Care Music Executive Name Role Phone Pascual Daly MD Primary Care Provide r Fani Heck PharmD Unavailable [phone] Reason for Visit * Reason Comments Med Refill Encounter Details Date Type Department Care Team (Late st Contact Info) Description 10/21/2023 Refill [facility] [address] [place] [address] Titi Gray FNP Major depressive disorder with [...] Upcoming Encounters Date Type Department Care Team ([facility] st Contact Info) Description 07/22/2024 10:30 AM EDT Clinical Support [facility] [address] [place] [address] Amanda Fernández RN [address] [place] [address] 08/03/2024 10:00 AM EDT Office Visit [facility] [address] [place] [address] Pascual Daly MD [address] [place] [address] documented as of this encounter Goals Goal [...] documented as of this encounter Care Teams Music Executive Relationship Specialty Start Date End Date Pascual Daly MD [address] [place] [address] PCP - General Internal Medicine 02/22/14 Fani Heck, PharmD [address] [place] [address] Pharmacist Internal Medicine 12/16/22 documented as of this encounter
--- OUTSIDE RECORDS SUMMARY | 2024-06-18 10:46 | XMS_ITS | Encounter Summary ---
Author Organization [employer] Address [address] [facility] 7t [place] [address] Care Team Providers Care Ruby On Rails Software Developer Name Role Phone Pascual Daly MD Primary Care Provide r Fani Heck PharmD Unavailable [phone] Reason for Visit * Reason Onset Date Comments FYI 11/06/2023 Encounter Details Date Type Department Care Team ([facility] st Contact Info) Description 11/06/2023 Telephone [facility] [address] [place] [address] Pascual Daly MD 230 [place] [address] FYI Social History Tobacco Use Types Packs/Day [...] 07/22/2024 10:30 AM EDT Clinical Support [facility] [address] [place] [address] Amanda Fernández RN 505 [place] [address] 08/03/2024 10:00 AM EDT Office Visit [facility] [address] [place] [address] Pascual Daly MD 230 [place] [address] documented as of this encounter Goals Goal [...] documented as of this encounter Care Teams Ruby On Rails Software Developer Relationship Specialty Start Date End Date Pascual Daly MD [address] [place] [address] PCP - General Internal Medicine 02/22/14 Fani Heck, PharmD 230 [place] [address] Pharmacist Internal Medicine 12/16/22 documented as of this encounter
--- OUTSIDE RECORDS SUMMARY | 2024-06-18 10:46 | XMS_ITS | Encounter Summary ---
Author Organization [employer] Address [address] [facility] 7t [place] [address] Care Team Providers Care Turner Machine Name Role Phone Pascual Daly MD Primary Care Provide r Fani Heck PharmD Unavailable [phone] Reason for Visit * Reason Onset Date Comments Med Refill 12/15/2023 Encounter Details Date Type Department Care Team ([facility] st Contact Info) Description 12/15/2023 Telephone [facility] 230 [place] [address] Pascual Daly MD 230 [place] [address] Med Refill Social History Tobacco Use Types [...] immediate release tablet To be sent to: [facility] - [place], [place] - [address] [place] [address] documented in this encounter Plan of Treatment Upcoming Encounters Date Type Department Care Team ([facility] st Contact Info) Description 07/22/2024 10:30 AM EDT Clinical Support [facility] 505 [place] [address] Amanda Fernández RN 505 [place] [address] 08/03/2024 10:00 AM EDT Office Visit [facility] 230 [place] [address] Pascual Daly MD 230 [place] [address] documented as of this encounter Goals Goal [...] documented as of this encounter Care Teams Turner Machine Relationship Specialty Start Date End Date Pascual Daly MD 230 [place] [address] PCP - General Internal Medicine 02/22/14 Fani Heck, PharmD 230 [place] [address] Pharmacist Internal Medicine 12/16/22 documented as of this encounter
--- OUTSIDE RECORDS SUMMARY | 2024-06-18 10:46 | XMS_ITS | Encounter Summary ---
Author Organization [employer] Address [address] [facility] 7t [place] [address] Care Team Providers Care Career Services Officer Name Role Phone Pascual Daly MD Primary Care Provide r Fani Heck PharmD Unavailable [phone] Encounter Details Date Type Department Care Team [...] 10:30 AM EDT Clinical Support [facility] 505 [place], [place] [phone] Amanda Fernández, AALIYAH 505 [place] [address] 08/03/2024 10:00 AM EDT Office Visit [facility] 230 [place] [address] Pascual Daly MD 230 [place] [address] documented as of this encounter Goals Goal [...] Whole Blood 121(H) 60 - 115 mg/dL [facility] Comment:METER #: [id number] 5Testing performed in the Endocrinology Department [address] , [address], [facility]. 06/04/2024 11:1 4 AM EST 06/04/2024 11:19 AM EST us Generic External Data Provider LAB BLOOD ORDERAB LES Final Result [facility] [address] [place] [address] [phone] documented in this encounter Visit Diagnoses Not on filedocumented in this encounter Additional Health Concerns Assessment Noted Time PHQ-9 Depression Total Score: 9 01/29/20 24 11:00 AM EDT documented as of this encounter Care Teams Career Services Officer Relationship Specialty Start Date End Date Pascual Daly MD [address] [place] [address] PCP - General Internal Medicine 02/22/14 Fani Heck PharmD [address] [place] [address] Pharmacist Internal Medicine 12/16/22 documented as of this encounter
--- OUTSIDE RECORDS SUMMARY | 2024-06-18 10:46 | XMS_ITS | Encounter Summary ---
Author Organization [employer] Address 75 [facility] 7t [place] [address] Care Team Providers Care Paper Sample Clerk Name Role Phone Pascual aDly MD Primary Care Provide r Fani Heck PharmD Unavailable [phone] Reason for Visit * Reason Onset Date Comments Med Refill 10/11/2022 Encounter Details Date Type Department Care Team ([facility] st Contact Info) Description 10/11/2022 Telephone [facility] 230 [place] [address] Pascual Daly MD 230 [place], [place] [phone] Med Refill Social History Tobacco Use Types [...] [facility] [address] [place] [address] Amanda Fernández, RN 505 [place] [address] 08/03/2024 10:00 AM EDT Office Visit [facility] [address] [place] [address] Pascual Daly MD 230 [place] [address] documented as of this encounter Goals Goal [...] documented as of this encounter Care Teams Paper Sample Clerk Relationship Specialty Start Date End Date Pascual Daly MD 230 [place] [address] PCP - General Internal Medicine 02/22/14 Fani Heck, PharmD [address] [place] [address] Pharmacist Internal Medicine 12/16/22 documented as of this encounter
--- OUTSIDE RECORDS SUMMARY | 2024-06-18 10:46 | XMS_ITS | Encounter Summary ---
Author Organization [employer] Address [address] [facility] 7t [place] [address] Care Team Providers Care Pillow Cleaner Name Role Phone Pascual Daly MD Primary Care Provide r Fani Heck PharmD Unavailable [phone] Reason for Visit * Reason Comments Med Refill Encounter Details Date Type Department Care Team (Late Contact Info) Description 12/28/2022 Refill [facility] [address] [place] [address] Titi Gray FNP Major depressive disorder with [...] 10:30 AM EDT Clinical Support [facility] 505 [place], [place] [phone] Amanda Fernández, AALIYAH 505 [place] [address] 08/03/2024 10:00 AM EDT Office Visit [facility] [address] [place] [address] Pascual Daly MD [address] [place] [address] documented as of this encounter Goals Goal [...] documented as of this encounter Care Teams Pillow Cleaner Relationship Specialty Start Date End Date Pascual Daly MD [address] [place] [address] PCP - General Internal Medicine 02/22/14 Fani Heck, PharmD [address] [place] [address] Pharmacist Internal Medicine 12/16/22 documented as of this encounter
--- OUTSIDE RECORDS SUMMARY | 2024-06-18 10:46 | XMS_ITS | Encounter Summary ---
Author Organization [employer] Address [address] [facility] 7t [place] [address] Care Team Providers Care Log Yard Derrick Operator Name Role Phone Pascual Daly MD Primary Care Provide r Fani Heck PharmD Unavailable [phone] Reason for Visit * Reason Onset Date Comments Med Refill 06/10/2024 Encounter Details Date Type Department Care Team (Late st Contact Info) Description 06/10/2024 Refill [facility] 230 [place] [address] Pascual Daly MD 230 [place], [place] [phone] Fibromyalgia Social History Tobacco Use Types Packs/Day [...] immediate release tablet To be sent to: [facility] - [place], [place] - [address] [place] [address] documented in this encounter Plan of Treatment Upcoming Encounters Date Type Department Care Team ([facility] st Contact Info) Description 07/22/2024 10:30 AM EDT Clinical Support [facility] 505 [place] [address] Amanda Fernández RN 505 [place] [address] 08/03/2024 10:00 AM EDT Office Visit [facility] [address] [place] [address] Pascual Daly MD [address] [place] [address] documented as of this encounter Goals Goal [...] documented as of this encounter Care Teams Log Yard Derrick Operator Relationship Specialty Start Date End Date Pascual Daly MD 230 [place] [address] PCP - General Internal Medicine 02/22/14 Fani Heck, Woody [address] [place] [address] Pharmacist Internal Medicine 12/16/22 documented as of this encounter
--- OUTSIDE RECORDS SUMMARY | 2024-06-18 10:46 | XMS_ITS | Encounter Summary ---
Author Organization [employer] Address [address] [facility] [address] [place] [address] Care Team Providers Care Machinery Erector Name Role Phone Pascual Daly MD Primary Care Provide r Fani Heck PharmD Unavailable [phone] Reason for Visit * Reason Comments Med Refill Encounter Details Date Type Department Care Team (Late st Contact Info) Description 10/21/2023 Refill [facility] [address] [place] [address] Titi Gray FNP Major depressive disorder with [facility] [address] [place] [address] Amanda Fernández RN 505 [place] [address] 08/03/2024 10:00 AM EDT Office Visit [facility] [address] [place] [address] Pascual Daly MD [address] [place] [address] documented as of this encounter Goals Goal [...] documented as of this encounter Care Teams Machinery Erector Relationship Specialty Start Date End Date Pascual Daly MD [address] [place] [phone] PCP - General Internal Medicine 02/22/14 Fani Heck, PharmD [address] [place] [phone] Pharmacist Internal Medicine 12/16/22 documented as of this encounter
--- OUTSIDE RECORDS SUMMARY | 2024-06-18 10:46 | XMS_ITS | Encounter Summary ---
Author Organization [employer] Address 75 [facility] 7t [place] [address] Care Team Providers Care Agriculture Specialist Name Role Phone Pascual Daly MD Primary Care Provide r Fani Heck PharmD Unavailable [phone] Encounter Details Date Type Department Care Team (Latest Contact Info) Description 05/26/2019 Abstract [facility] CONVERSION[facility] Dental, Provider, DDS Social History Tobacco [...] [facility] 505 [place] [address] Amanda Fernández, AALIYAH 505 [place] [address] 08/03/2024 10:00 AM EDT Office Visit [facility]INE [address] [place], [place] [phone] Pascual Daly MD [address] [place] [address] documented as of this encounter Visit Diagnoses Not on filedocumented in this encounter Care Teams Agriculture Specialist Relationship Specialty Start Date End Date Pascual Dlay MD [address] [place] [address] PCP - General Internal Medicine 02/22/14 Fani Heck, Woody [address] [place] [address] Pharmacist Internal Medicine 12/16/22 documented as of this encounter
--- OUTSIDE RECORDS SUMMARY | 2024-06-18 10:46 | XMS_ITS | Encounter Summary ---
Author Organization [employer] Address 75 [facility] 7t [place] [address] Care Team Providers Care Caster Helper Name Role Phone Pascual Daly MD Primary Care Provide r Fani Heck PharmD Unavailable [phone] Encounter Details Date Type Department Care Team [...] Description 07/22/2024 10:30 AM EDT Clinical Support [facility]S [address] [place], [place] [phone] Amanda Fernández, AALIYAH 505 [place] [address] 08/03/2024 10:00 AM EDT Office Visit [facility] MEDICINE 230 [place] [address] Pascual Daly MD [address] [place] [address] documented as of this encounter Goals Goal Patient Goal Type Associated Problems Recent Progress Patient-Stated? Author Blood Pressure < 140/90 Blood Pressure 133/70( 025 11:28 AM EST) No Fani Heck, KristiD documented as of this encounter Procedures Procedure Name Priority Date/Time Associated Diagnosis Comments PTH, INTACT WITHOUT CALCIUM Routine 06/15/2024 11:09 AM EST CALCIUM, IONIZED Routine 06/15/2024 11:0 9 AM EST GLUCOSE, WHOLE BLOOD Routine 06/15/2024 10:16 AM EST documented in this encounter Results * Calcium, Ionized (06/15/2024 11:09 AM EST) Calcium, Ionized 5.3 4.7 - 5.5 mg/dL [facility] Comment:THIS TEST WAS PERFOR MED AT:[employer] [place] [id number] HURLEY MD 06/15/2024 11:0 9 AM EST 06/15/2024 11:13 AM EST us Generic External Data Provider LAB BLOOD ORDERAB LES Final Result Performing Organization Address [facility]/ZIP Co de Phone Number [facility] [address] [place] [phone] * (ABNORMAL) PTH, Intact Without Calcium (06/15/2024 11:09 AM EST) Parathyroid Hormone, Intact 101.8(H) 8.7 - 77.1 pg/mL [facility] 06/15/2024 11:0 9 AM EST 06/15/2024 11:13 AM EST Generic External Data Provider LAB BLOOD ORDERAB LES Final Result Performing Organization Address [facility] Co de Phone Number [facility] [address] [place] [phone] * Glucose, Whole Blood (06/15/2024 10:16 AM EST) Glucose, Whole Blood 105 60 - 115 mg/dL [facility] Comment:METER #: [id number] Testing performed in the Endocrinology Department [address] , [address], [facility]. 06/15/2024 10:1 6 AM EST 06/15/2024 10:21 AM EST Generic External Data Provider LAB BLOOD ORDERAB LES Final Result Performing Organization Address [facility] Co de Phone Number [facility] [address] [place] [phone] documented in this encounter Visit Diagnoses Not on filedocumented in this encounter Additional Health Concerns Assessment Noted Time PHQ-9 Depression Total Score: 9 01/29/20 11:00 AM EDT documented as of this encounter Care Teams Caster Helper Relationship Specialty Start Date End Date Pascual Daly MD [address] [place] [address] PCP - General Internal Medicine 02/22/14 Fani Heck PharmD [address] [place] [address] Pharmacist Internal Medicine 12/16/22 documented as of this encounter
--- OUTSIDE RECORDS SUMMARY | 2024-06-18 10:46 | XMS_ITS | Encounter Summary ---
Author Organization [employer] Address 75 [facility] 7t [place] [address] Care Team Providers Care Needle Polisher Name Role Phone Pascual Daly MD Primary Care Provide r Fani Heck PharmD Unavailable [phone] Encounter Details Date Type Department Care Team (Late st Contact Info) Description 03/11/2022 Abstract [facility] MED[facility] [address] [place] [phone] Fani Heck, PharmD 230 [place] [address] Social History Tobacco Use Types Packs/Day Years [...] Description 07/22/2024 10:30 AM EDT Clinical Support [facility] PEDS 505 [place] [address] Amanda Fernández, AALIYAH 505 [place] [address] 08/03/2024 10:00 AM EDT Office Visit [facility] 230 [place] [address] Pascual Daly MD [address] [place] [phone] documented as of this encounter Visit Diagnoses Not on filedocumented in this encounter Care Teams Needle Polisher Relationship Specialty Start Date End Date Pascual Daly MD [address] [place] [address] [phone] PCP - General Internal Medicine 02/22/14 Fani Heck, KristiD [address] [place] [address] [phone] Pharmacist Internal Medicine 12/16/22 documented as of this encounter
--- OUTSIDE RECORDS SUMMARY | 2024-06-18 10:46 | XMS_ITS | Patient Health Record ---
Author Organization [facility] Address [address] [place] [address] Care Team Providers Care Bleach Plant Operator Name Role Phone Adolph Terry MD, Pascual [...] Unknown Drug Allergy Acti ve REASON FOR REFERRAL No Information MEDICATIONS Medication [...] Problem Colon cancer screening (Z12.11) Active confirmed 392197585 Problem Epigastric pain (R10.13) Active confirmed 52501968 Problem Iron deficiency anemia (D50.9) Active confirmed Iron deficiency anemia (88701552) Problem Gastroesophageal reflux disease without esophagitis (K21.9) Active confirmed 468708310 Problem Nausea and vomiting, intractability of vomiting not specified, unspecified vomiting type (R11.2) Active confirmed 13221727 VITAL SIGNS Temperature 97.9 degrees Fahrenheit 11/24/2023 Blood pressure diastolic 00 mm Hg 11/24/2023 Height 59 in 11/24/2023 Blood pressure systolic 000 mm Hg 11/24/2023 Weight 155 lb 4 oz lbs 11/24/2023 BMI 31.35 kg/m2 11/24/2023 Encounters Encounter Location Date Provider Diagnosis [facility] [address] [place] [phone] 09/03/2023 Cortes Castillo Jr [facility] [address] [place] [phone] 11/24/2023 Cortes Castillo Jr Gastroesophageal reflux disease without esophagitis K21.9 ; Iron deficiency anemia D50.9 and Colon cancer screening Z12.11 [facility] [address] [place] [phone] 08/19/2023 Cortes Castillo Jr [facility] [address] [place] [phone] 11/24/2023 Cortes Castillo Jr [facility] [address] [place] [phone] 03/01/2024 Cortes Castillo Jr ASSESSMENTS Encounter Date Diagnosis [...] Appt Details Provider Name:Cortes Guido wilburn Jr, 12/01/2024 09:20:00 AM, [address] [place] [address], [address], [place], [address], Insurance Providers Payer Name Payer Address Payer Phone Subscriber Number Group Number Insured Name Patient Relationship to Insured Coverage Start Date Coverage End Date [facility] [address] Attn Claims MARK [place] [id number] ROSANNE WILLIS Self - patient is the [...]
--- OUTSIDE RECORDS SUMMARY | 2024-06-18 10:46 | XMS_ITS ---
Author Organization [facility] Address [address] [place] [address] Care Team Providers Care Vibration Engineer Name Role Phone Adolph Terry MD, Pascual Primary Care Provide r Vidal Castillo Jr, Cortes Unavailable Zeb Tang Unavailable Unavailable Encounters Encounter Location Date Provider Diagnosis [facility] [address] [place] [address] 11/24/2023 Cortes Castillo Jr PLAN OF TREATMENT Next Appt Details Provider Name:Cortes wilburn Jr, 12/01/2024 09:20:00 AM, [address], [address], [place], [address],
--- OUTSIDE RECORDS SUMMARY | 2024-06-18 10:46 | XMS_ITS | Encounter Summary ---
Author Organization [employer] Address 75 [facility] 7t [place] [address] Care Team Providers Care Group Account Director Name Role Phone Pascual Daly MD Primary Care Provide r Fani Heck PharmD Unavailable [phone] Reason for Visit * Reason Comments Med Refill Encounter Details Date Type Department Care Team (Late st Contact Info) Description 05/24/2024 Refill [facility] [address] [place] [address] Pascual Daly MD 230 [place], [place] [phone] Benign hypertension Social History Tobacco Use Types [...] [facility] [address] [place] [address] Amanda Fernández, AALIAYH 505 [place] [address] 08/03/2024 10:00 AM EDT Office Visit [facility] 230 [place] [address] Pascual Daly MD [address] [place] [phone] documented as of this encounter Goals Goal [...] documented as of this encounter Care Teams Group Account Director Relationship Specialty Start Date End Date Pascual Daly MD [address] [place] [phone] PCP - General Internal Medicine 02/22/14 Fani Heck, KristiD [address] [place] [phone] Pharmacist Internal Medicine 12/16/22 documented as of this encounter
--- OUTSIDE RECORDS SUMMARY | 2024-06-18 10:46 | XMS_ITS | Encounter Summary ---
Author Organization [employer] Address 75 [facility] 7t [place] [address] Care Team Providers Care Neuropsychiatric Aide Name Role Phone Pascual Daly MD Primary Care Provide r Fani Heck PharmD Unavailable [phone] Encounter Details Date Type Department Care Team (Late st Contact Info) Description 03/13/2022 Abstract [facility] MED[facility]INE [address] [place] [phone] ProviderBill MD Social History Tobacco Use Types [...] [facility] [address] [place] [address] Amanda Feránndez, AALIYAH 505 [place] [address] 08/03/2024 10:00 AM EDT Office Visit [facility] MED[facility] 230 [place] [address] Pascual Daly MD 230 [place], [place] [phone] documented as of this encounter Visit Diagnoses Not on filedocumented in this encounter Care Teams Neuropsychiatric Aide Relationship Specialty Start Date End Date Pascual Daly MD 230 [place] [address] PCP - General Internal Medicine 02/22/14 Fani Heck PharmD [address] [place] [phone] Pharmacist Internal Medicine 12/16/22 documented as of this encounter
== END 2024-06-18 11:06 | disposition home or self-care (01) ==
PROVIDERS: PCP Internal Medicine; Visit Provider Student in an Organized Health Care Education/Training Program
DX: M05.79 Rheumatoid arthritis with rheumatoid factor of multiple sites without organ or systems involvement (principal); M81.0 Age-related osteoporosis without current pathological fracture; M75.52 Bursitis of left shoulder; Z51.81 Encounter for therapeutic drug level monitoring; Z79.620 Long term (current) use of immunosuppressive biologic; Z79.83 Long term (current) use of bisphosphonates
CPT/HCPCS: 20610; 99214

== ENCOUNTER → 2024-06-18 09:51 | Outpatient (BNVA) | payer OTHER, SELFPAY | PROVIDERS: PCP Internal Medicine; Visit Provider Student in an Organized Health Care Education/Training Program | DX: M05.9 Rheumatoid arthritis with rheumatoid factor, unspecified (principal); M81.0 Age-related osteoporosis without current pathological fracture; M75.52 Bursitis of left shoulder; Z79.83 Long term (current) use of bisphosphonates; Z79.620 Long term (current) use of immunosuppressive biologic | CPT/HCPCS: 20610; 99212; J3300 ==

== ENCOUNTER 2024-07-07 10:25 | Outpatient (AMB) | payer OTHER, SELFPAY ==
--- NOTE | 2024-07-06 12:57 | MHC.OFFVIS ---
Intake Visit Reasons: f/u Type 1 DM /secondary hyperparathyroidism Allergies lorazepam [LORAZEPAM] Allergy (Severe, Verified 06/18/24 10:21) DELIRIUM celecoxib [From Celebrex] Allergy (Intermediate, Verified 06/18/24 10:21) ITCHING tramadol [TRAMADOL] Allergy (Intermediate, Verified 06/18/24 10:21) ITCHING zolpidem [Ambien] Allergy (Unknown, Verified 06/18/24 10:21) unknown [facility] Medical History Hypoglycemia due to insulin Elevated parathyroid hormone Osteoporosis Hyperlipidemia (04/21/1959) Depressive disorder (04/21/1959) Nutritional anemia (04/21/1959) Shortness of breath Hypothyroidism (04/21/1959) Anemia Chronic gastritis Heart palpitations NSTEMI (non-ST elevated myocardial infarction) Recurrent falls (12/04/11) Iron deficiency anemia (04/21/1959) Fibromyositis (04/21/1959) Eczema (04/21/1959) High risk medication use Hepatitis C antibody positive in blood Screening for osteoporosis Screening for viral disease Joint swelling Overweight (BMI 25.0-29.9) Neck pain Swelling of knee joint, right Intra-abdominal abscess Diabetes Elevated liver function tests Intestinal malabsorption following gastrectomy Obesity (BMI 30-39.9) 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 Hypertension Cholecystitis Hyperlipidemia, unspecified Essential hypertension Atherosclerotic cardiovascular disease Fibromyalgia Folliculitis Anxiety Depression History of myocardial infarction Diabetes type 1, uncontrolled 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
--- NOTE | 2024-07-06 12:59 | A.OFFVIS_ITS ---
Vital Signs 07/07/24 10:41 Height 4 ft 11 in Weight 149 lb 14.629 oz BMI 30.3 BP 106/74 Blood Pressure Location Rt brachial Position Sitting Pulse 63 Pulse Source Pulse Oximeter Pulse Oximetry (%) 98 Oxygen Delivery Method Room Air Intake Visit Reasons: f/u Type 1 DM /secondary hyperparathyroidism Intake Note: Patient presents today for a follow-up on Type 1 Diabetes Mellitus & Secondary Hyperparathyroidism: Last Diabetic eye exam was on: 01/20/2024 Last Podiatry exam was on: Patient does not see a Chemical Lab Supervisor Most recent HbA1c: 8.6%, 05/18/2024 Random Glucose- 312 mg/dL, Today Acid Polymerization Operator Required: Yes Acid Polymerization Operator Language: Lease Administration Supervisor Services: Acid Polymerization Operator Offered & Declined Information Interpreted: non-clinical & clinical Accompanied by: RESIDENT ASSOCIATE Allergies lorazepam [LORAZEPAM] Allergy (Severe, Verified 07/07/24 10:48) DELIRIUM celecoxib [From Celebrex] Allergy (Intermediate, Verified 07/07/24 10:48) ITCHING tramadol [TRAMADOL] Allergy (Intermediate, Verified 07/07/24 10:48) ITCHING zolpidem [Ambien] Allergy (Unknown, Verified 07/07/24 10:48) unknown HPI Comments Details: Patient is a 74-year-old female with DM type 1 diagnosed at 40 years of age, initially thought to have type 2 diabetes, who presents for management of diabetes. she was last seen by Dr. Sprague 2 weeks ago. we are actively titrating her insulin upward so that she can get cleared for trigger finger release sugery. She does report a history of hypoglycemic coma in the past. 2023 she dropped her sugar to the 20s.She reports using her insulin prior to meals without fail. She had a recent increase in Levothyroxine 10 112mcg. 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 Scalp folliculitis, fibromyalgia, microcytic anemia pernicious depression. Bariatric surgery 12/09/2016. [place] in past Micro and macrovascular complications: CAD Diabetes medications: Tresiba 21 units Fiasp 80-100 eat first and take 2 units 101-200 5 unit 201-250 6 units 251-300 7 units Over 300 9 unit Dexcom average glucose: 242 14 day continuous glucose monitor report reviewed Glucose Managment indicator 9.1 % Days with CGM data [ ] % TIme in ranges: Forty-one % very high (above 250) 41 % high ?(181-250) 18 % in range ?(70-180] 0 % low (69-55) Less than 1 % ?very low (below 54) Interpretation [glucose readings running 50 points higher than desired with no substantial lows ] Symptoms reported: denies numbness, tingling, cramping in lower extremities Hypoglycemia: reports hypoglycemia 3 nights/wk Hyperglycemia: + urinary frequency, +nocturia, +polydypsia Does not take a snack before bedtime Exercise: denies Bottom Sander - CDE education: in past Chemical Lab Supervisor: in past Ophthalmology evaluation: last visit last wk Other specialists: yarn texture machine operator, neurologist, Dr. Tang [facility] Medical History Hypoglycemia due to insulin Elevated parathyroid hormone Osteoporosis Hyperlipidemia (04/21/1959) Depressive disorder (04/21/1959) Nutritional anemia (04/21/1959) Shortness of breath Hypothyroidism (04/21/1959) Anemia Chronic gastritis Heart palpitations NSTEMI (non-ST elevated myocardial infarction) Recurrent falls (12/04/11) Iron deficiency anemia (04/21/1959) Fibromyositis (04/21/1959) Eczema (04/21/1959) High risk medication use Hepatitis C antibody positive in blood Screening for osteoporosis Screening for viral disease Joint swelling Overweight (BMI 25.0-29.9) Neck pain Swelling of knee joint, right Intra-abdominal abscess Diabetes Elevated liver function tests Intestinal malabsorption following gastrectomy Obesity (BMI 30-39.9) 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 Hypertension Cholecystitis Hyperlipidemia, unspecified Essential hypertension Atherosclerotic cardiovascular disease Fibromyalgia Folliculitis Anxiety Depression History of myocardial infarction Diabetes type 1, uncontrolled 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 Mother CVA (cerebral vascular accident) Sister Hypertension Brother Hypertension Liver cancer Social History Household Members: None Housing: Apartment Are you a primary child care associate to a significant other at home: No Do you presently have visiting nurse or other home services: Yes Unable to assess alcohol history related to: Unable to respond Alcohol intake: never Patient Tobacco Use Status: Never used Tobacco Advance Directives Date on File: 09/17/23 service: No Current occupational status: disabled Current occupation: right hand dominant Physical Exam Vital Signs: Last Vital Signs Pulse 63 07/07/24 10:41 BP 106/74 07/07/24 10:41 Pulse Ox 98 07/07/24 10:41 Oxygen Delivery Method Room Air 07/07/24 10:41 BMI result Body Mass Index 30.3 Const Other: Absence of Cushingoid features. Absence of acromegalic features. Heart S1 S2, Reg R/R. No M/R G. Skin exam reveals absence of vitiligo or acanthosis nigricans. Results Reviewed Results Reviewed: Laboratory Last Values Glucose (Clinic) 312 mg/dL (60-115) H 07/07/24 10:53 Assessment & Plan Assessment & Plan (1) Diabetes type 1, uncontrolled: Code(s): E10.65 - Type 1 diabetes mellitus with hyperglycemia Category: Medical Qualifiers: Glycemic state: with hypoglycemia Coma presence: without coma Qualified Code(s): E10.649 - Type 1 diabetes mellitus with hypoglycemia without coma Plan This is a 74-year-old female with history of type 1 diabetes being treated with basal-bolus insulin with poor glycemic control by HbA1c and known macrovascular complications namely CAD. There is significant hyperglycemia throughout the day with post-prandial spikes. Her glycemic control is limited by severe hypoglycemia in the past New dosing Tresiba 23 units Fiasp breakfast and supper: 80-100 eat first and take 2 units 101-200 5 units 201-250 6 units 251-300 7 units over 300 9 units lunch add an additional 1 unit to all doses except when 80-100 The patient had an opportunity to ask questions regarding treatment plan. The patient expressed understanding and agreement with the above treatment plan. The patient is aware they should contact our office by phone for worsening glucose readings or for any low blood sugars which may warrant a change in diabetes medication. Compliance is encouraged with medications and any followup testing/consults which may have been ordered. Patient Instructions: Take 15 carb carbohydrate grams to treat a low sugar (3-4 glucose tablets, half a glass of juice or 15 carbohydrate grams of soft candy such as gummie snacks). Recheck your sugar in 15 minutes and re-treat again with 15 carbohydrate grams if low or still with symptoms. Do not drive a car or operate machinery if you do not know what your blood sugar is, if it is low or in excess of 300. Sick day management reviewed. Check your feet daily looking for any signs of infection, drainage, redness, ulceration and seek medical attention if this occurs. Break in shoes gradually and do not wear open-toed shoes or walk stocking footed or barefooted. Coding Level of Care Code Est Pt Level 4 (10536) Complex EM visit Add On G2211 Diagnoses Uncontrolled type 1 diabetes mellitus with hypoglycemia without coma E10.649 Glycemic state: with hypoglycemia Coma presence: without coma Time Spent (min) 30 Comment Time spent reviewing labs/provider notes, face to face, chart doc
[2024-07-07 10:41] VITALS: BP 106/74; PULSE 63; O2SAT 98; BMI 30.3
[2024-07-07 11:00] LABS: Glucose, Whole Blood 312 mg/dL (60-115)
--- OUTSIDE RECORDS SUMMARY | 2024-07-07 12:14 | XMS_ITS | Data Portability ---
Author Organization [facility], Main Office Address [address] [place] [address] Care Team Providers Care Marketing Budget Analyst Name Role Phone MARII MASSEY Primary Care Provider [facility] - 2ND FLOOR OTHER Assessment No assessment recorded. Plan of Treatment Reminders Order Date Submit Date Provider Last Modified By Organization Details Last Modified Time Details Appointments None recorded. Lab None recorded. Referral None recorded. Procedures None recorded. Surgeries None recorded. Imaging None recorded. Medication Orders oxycodone 5 mg tablet 2023 024 [facility] , [address] [place] [address], [address], 4 21:23:28 oxycodone 5 mg tablet 2023 024 [facility] , [address] [place] [address], [address], 4 13:28:18 Patient TargetsNo targets recorded. Patient InstructionsNo instructions recorded. Reason for Referral None Reported. 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 Dori Pena NP [address] [facility], [address], [place], [address], [facility] [email or web address] 4 15:49:21 Hypertensive disorder 00115363 Active 2023 Dori Pena NP [address], [address], [place], [address], [facility] 4 15:49:57 Gastroesophage al reflux disease 047204997 Active 2023 Dori Pena NP [address], [address], [place], [address], [place] [facility] 4 15:51:24 Rheumatoid arthritis 64814677 Active 2023 Dori Pena NP [address], [address], [place], [address], [facility] 4 15:51:29 Mixed anxiety and depressive disorder 423141726 Active 2023 Dori Pena NP [address], [address], [place], [address], [place] [facility] 4 15:51:45 Obesity 974818266 Active 2023 Dori Pena NP [address], [place], [address], [facility] 4 15:51:51 Closed flail chest 437692396 Active 2023 Dori Pena NP [address], [place], [address], [facility] 4 15:52:35 Asthenia 07413421 Active 2023 Dori Pena NP [address], [place], [address], [facility] 4 15:52:46 Irritable bowel syndrome 41731800 Active 2023 Dori Pena NP [address], [place], [address], [facility] 4 16:06:46 Recurrent falls 169475692 Active 2023 Dori Pena NP [address], [place], [address], [facility] 4 16:38:03 Problem Notes None recorded. Procedures Surgical History Date Name Laterality Status Provider Name and Address Organization Details Recorded Time bypass gastroenterostomy completed Dori Pena, AAKASH [address], [place], [address], [facility] 09/17/2023 15:40:41 Laparoscopic cholecystectomy completed Dori Pena NP [address] [facility], [address], [place], [address], [facility] 09/17/2023 15:41:25 fixed suspension procedure of urinary bladder neck completed Dori Pena NP [address], [place], [address], [facility] 09/17/2023 15:42:01 Appendectomy completed Dori Pena NP [address], [place], [address], [facility] 09/17/2023 15:42:11 bilateral cataract surgery completed Dori Pena NP [address] [facility], [address], [place], [address], [facility] 09/17/2023 15:42:26 Imaging Results None recorded. Procedure Notes None recorded. Medical Equipment None Reported. Allergies Allergen ID Allergen Name Allergen Category Reaction Reaction Severity Criticality Documentation Date Start Date Code Code System Note Provider Name and Address Organization Details Recorded Time 13086 celecoxib medicatio n other Not available unabletoasse 09/17/2023 49604 7 RxNorm unkno wn Not Available Not Available Not Available 53193 lorazepam medicatio n [facility] 09/17/2023 6470 RxNorm unkno wn Not Available Not Available Not Available 44221 tramadol medicatio n other Not available unabletoasse 09/17/2023 17253 RxNorm unkno wn Not Available Not Available Not Available 34269 zolpidem medicatio n other Not available unabletoasse 09/17/2023 69632 RxNorm unkno wn Not Available Not Available [...] Address Organization Details Last Updated DateTime 4 03953.7 8 g 98 /min 18 /min 97.8 [degF] 94 % 94 % 150 mm[Hg] 77 mm[Hg] Dori Pena NP [address] [facility] [address], [place], [address], [facility] 4 10:49:41 Date Recorded Body weight Heart rate Respiratory rate Body temperature Oxygen saturation Oxygen saturation in Arterial blood by Pulse oximetry Systolic blood pressure Diastolic blood pressure Provider Name and Address Organization Details Last Updated DateTime 4 19930.7 8 g 83 /min 18 /min 97 [degF] 98 % 98 % 148 mm[Hg] 74 mm[Hg] Dori Pena NP [address] [facility] [address], [place], [address], [facility] 4 13:29:12 Date Recorded Body weight Heart rate Respiratory rate Body temperature Oxygen saturation Oxygen saturation in Arterial blood by Pulse oximetry Systolic blood pressure Diastolic blood pressure Provider Name and Address Organization Details Last Updated DateTime 4 79878.7 8 g 76 /min 18 /min 97.8 [degF] 97 % 97 % 128 mm[Hg] 78 mm[Hg] Dori Pena NP [address] [facility] [address], [place], [address], [facility] 4 12:05:35 Date Recorded Body weight Heart rate Respiratory rate Body temperature Oxygen saturation Oxygen saturation in Arterial blood by Pulse oximetry Systolic blood pressure Diastolic blood pressure Provider Name and Address Organization Details Last Updated DateTime 4 58424 g 80 /min 18 /min 98 [degF] 95 % 95 % 111 mm[Hg] 60 mm[Hg] Dori Pena NP [address] [facility] [address], [place], [address], [facility] 4 11:40:36 Date Recorded Body weight Heart rate Respiratory rate Body temperature Oxygen saturation Oxygen saturation in Arterial blood by Pulse oximetry Systolic blood pressure Diastolic blood pressure Provider Name and Address Organization Details Last Updated DateTime 4 05390 g 74 /min 18 /min 98.4 [degF] 95 % 95 % 124 mm[Hg] 68 mm[Hg] Dori Pena NP [address] [facility] [facility] [address], [place], [address], [facility] 4 13:12:09 Social History Question Answer Notes LastModified by Organizat ion Details LastModified Time Tobacco Smoking Status Never Smoker Dori Pena NP [address] [facility], [facility] [address], [place], [address], [facility] [email or web address] 09/17/2023 15:39:38 Do You Have An Advance [...] (RSV) vaccine, unspecified 4 completed Radha batista, [facility] [email or web address] 09/19/2023 16:11:12 Tdap 4 completed Radha Stoll null, [facility] 09/19/2023 16:11:26 Td(adult) unspecified formulation 3 completed Radha Jerman null, [facility] 09/19/2023 16:11:43 Td(adult) unspecified formulation 3 completed Radha Jerman null, [facility] 09/19/2023 16:11:51 Pneumococcal conjugate PCV 13 6 completed Radha Jerman null, [facility] 09/19/2023 16:12:53 Pneumococcal conjugate PCV20, polysaccharide [id number] conjugate, adjuvant, PF 4 completed Radha Stoll null, [facility] 09/19/2023 16:13:07 pneumococcal polysaccharide PPV23 1 completed Radha Stoll null, [facility] 09/19/2023 16:13:22 pneumococcal polysaccharide PPV23 4 completed Radha Jerman null, [facility] 09/19/2023 16:13:31 influenza, unspecified formulation 2 [facility] 16:13:47 influenza, unspecified formulation 3 completed Radha Jerman null, [facility] 09/19/2023 16:13:55 MMR 8 completed Radha Jerman [facility], [facility] 09/19/2023 16:14:21 SARS-COV-2 (COVID-19) vaccine, UNSPECIFIED 1 completed Radha Jerman null, [facility] 09/19/2023 16:15:58 SARS-COV-2 (COVID-19) vaccine, UNSPECIFIED 1 completed Radha Jerman null, [facility] 09/19/2023 16:16:13 SARS-COV-2 (COVID-19) vaccine, UNSPECIFIED 1 completed [facility] 16:16:27 SARS-COV-2 (COVID-19) vaccine, UNSPECIFIED 2 completed Radha Stoll [facility] 09/19/2023 16:17:15 SARS-COV-2 (COVID-19) vaccine, UNSPECIFIED 2 completed Radha Stoll [facility] 09/19/2023 16:21:38 zoster, unspecified formulation 5 completed Radha Stoll [facility] 09/19/2023 16:23:04 zoster, unspecified formulation 9 completed Radha [facility] 09/19/2023 16:23:18 zoster, unspecified formulation [address] [facility] 09/19/2023 16:25:18 Past Encounters Encounter ID Performer Location Encounter Start Date Encounter Closed Date Diagnosis/Indication Diagnosis SNOMED-CT Code Diagnosis ICD10 Code Diagnosis Note [id number] Dori Pena NP [address] [address] 09/17/2023 15:22:09 09/23/2023 14:50:24 Closed flail chest 457324471 S22.5XXD with multiple rib fractures and clavicular [...] If stable no further workup needed. Asthenia 75501744 R53.1 with notable weakness due to injuryPT OT eval and treatsuppo rtive caremonito r Type 1 frank betes mellitus 62899743 E10.9 tresiba 30 unit sc qhsinsulin 2-14 SSI sc qidhsmonit or BS and adjust as needed Hypertensive disorder 38 641876 I10 not on meds for thisamlodi pine 10 mg po dailylosar zaragoza 100 mg po dailymonit or bp/vitals 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 225429 E06.3 levothyrox ine 112 mcg dailymonit or tsh as needed Gastroesop hageal reflux disease 953347569 K21.9 esomeprazo le 40 mg o daily Obesity 225790162 E66.9 assistant brand manager to consultsup portive careportio n controlmon itor weight Mixed anxi ety and depressive disorder 978269903 F41.8 aripiprazo le 20 mg dailyvenla faxine 150 mg po dailyprazo sin 6 mg po qhsmelaton in 3 mg po qhshydroxy zine 10 mg po q 8 hours prn anxietyclo nazepam 0.5 mg po q 8 hours prn anxietycar vedilol 6.25 mg po bidmonitor Rheumatoid arthritis 698 85050 M06.9 enbrel 50 mg sc q 7dayscalci um citrate 400 mg po bidmonitor for reliefsee pain management above with flail chest Irritable bowel syndrome 24808377 K58.9 ? IBSlinzess 290 mcg q ammonitor Deficiency anemias 51378 3007 D53.9 folic acidvit [id number] Coronary arteriosclerosis 41085754 I25.10 hx of MIatorvast atin 20 mg po dailyclopi dogrel 75 mg po q amsee above htn medsmonito r Recurrent falls 43073555 2 R29.6 reports history of falls with bank manager at home to help her and balance issuesrepo rts more than 5 falls/year supportive caremonito r [id number] JESSICA HINDS NP [place] [address] [place] [address] 09/18/2023 13:29:08 09/23/2023 15:13:15 Closed flail chest 811029310 S22.5XXD with multiple rib fractures and clavicular [...] If stable no further workup needed. Asthenia 89465932 R53.1 with notable weakness due to injuryPT OT eval and treatsuppo rtive caremonito r Type 1 frank betes mellitus 13438892 E10.9 A1C 8.8%Contin eu:tresiba 30 unit sc qhsinsulin 2-14 SSI sc qidmonitor BS and adjust as needed Hypertensive disorder 38 646850 I10 amlodipine 10 mg po dailylosar zaragoza 100 mg po dailycoreg 6.25 mg bidmonitor bp/vitals 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 688173 E06.3 levothyrox ine 112 mcg dailymonit or tsh as needed Gastroesop hageal reflux disease 742990242 K21.9 esomeprazo le 40 mg o daily Deficiency anemias 45082 3007 D53.9 folic acidvit [id number] Obesity 466499599 E66.9 assistant brand manager to consultsup portive careportio n controlmon itor weight Mixed anxi ety and depressive disorder 992015735 F41.8 aripiprazo le 20 mg dailyvenla faxine 150 mg po dailyprazo sin 6 mg po qhsmelaton in 3 mg po qhshydroxy zine 10 mg po q 8 hours prn anxietyclo nazepam 0.5 mg po q 8 hours prn anxietymon itor Rheumatoid arthritis 698 77854 M06.9 enbrel 50 mg sc q 7dayscalci um citrate 400 mg po bidmonitor for reliefsee pain management above with flail chest Irritable bowel syndrome 12105695 K58.9 ? IBSlinzess 290 mcg q ammonitor Coronary arteriosclerosis 03332073 I25.10 hx of MIatorvast atin 20 mg po dailyclopi dogrel 75 mg po q amsee above htn medsmonito r Recurrent falls 28192274 2 R29.6 reports history of falls with bank manager at home to help her and balance issuesrepo rts more than 5 falls/year supportive caremonito r [id number] Dori Pena NP [facility] [address] [address] 09/22/2023 14:27:57 09/29/2023 19:16:34 Closed flail chest 551046888 S22.5XXD with multiple rib fractures and clavicular [...] If stable no further workup needed. Asthenia 80432583 R53.1 with notable weakness due to injuryPT OT eval and treatsuppo rtive caremonito r Type 1 frank betes mellitus 36001889 E10.9 BS 81-252 [id number] 8.8%contin ue:tresiba 30 unit sc qhsinsulin 2-14 SSI sc qidmonitor BS and adjust as needed Hypertensive disorder 38 909702 I10 improving lately, boderline highcontam lodipine 10 mg po dailylosar zaragoza 100 mg po dailycoreg 6.25 mg bidmonitor bp/vitals 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 511726 E06.3 contlevoth yroxine 112 mcg dailymonit or tsh as needed Gastroesop hageal reflux disease 150420911 K21.9 esomeprazo le 40 mg o daily Deficiency anemias 05957 3007 D53.9 folic acidvit l35egsxbzh Obesity 647773780 E66.9 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 IBSlinzess 290 mcg q ammonitor Coronary arteriosclerosis 88925467 I25.10 hx of MIatorvast atin 20 mg po dailyclopi dogrel 75 mg po q amsee above htn medsmonito r Recurrent falls 59052209 2 R29.6 reports history of falls with bank manager at home to help her and balance issuesrepo rts more than 5 falls/year supportive caremonito r Acute cystitis 31346368 N30.00 reports dysuria and occassiona l incontinen ce latelyurin e culture returned showing > 100,000 klebsiella pneumo ssp and started on ceftriaxon e 1gram IM and cefpodoxim e 200 mg po bid x 7 days with probiotic by on provider over the weekend.mo nitor [id number] Jonel Alamo MD [address] [address] 09/23/2023 11:01:43 09/29/2023 19:25:59 Closed fracture of multiple left ribs 2509133182 1348252 S22.42XG see HPIleft rib fxs 2-6 with concern for flail chest , with clavicular fxeval by surgery with no interventi on indicatedm onitor respirator y statusutil ize incentive spirometer monitor for pain controlupd ate surgery with concerns Asthenia 47021500 R53.1 PT OT eval and treatmonit or need for increased support in community Type 1 rfank betes mellitus 56171492 E10.9 tresiba 30 units qdSS insulinmon itor glucose and need to titrate Hypertensive disorder 38 265524 I10 norvasc 10 mg qdcoreg 6.25 mg bidlosarta n 100 mg qdcurrentl y elevatedmo nitor need for increased control 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 707117 E06.3 hx of added to PMHmaintai priscilla onsynthroi d 112 mcg qdmonitor tsh prn Gastroesop hageal reflux disease 725208245 K21.9 nexium 40 mg qd continuedm onitor for effect Obesity 307545201 E66.09 dietary eval in patient with baseline DM Mixed anxi ety and depressive disorder 857940020 F41.8 carrying dx requiring multiple medication swill continue out patient medication s includinga bility and ativanmoni tor moodpsych eval prn Rheumatoid arthritis 698 73415 M06.9 remains onenbrel 50 mg q friday Irritable bowel syndrome 21136471 K58.9 ? IBSlinzess 290 mcg q ammonitor Coronary arteriosclerosis 16354828 I25.10 hx of MIatorvast atin 20 mg po dailyclopi dogrel 75 mg po q amsee above htn medsmonito r Recurrent falls 39184758 2 R29.6 reports history of falls with bank manager at home to help her and balance issuesrepo rts more than 5 falls/year supportive caremonito r Solitary n odule of lung 777735423 R91.1 question right 4 mm upper lobe nodulecons ider repeat scan in 6-12 months Primary insomnia 7162254 F51.01 continue melatoninm onitor need to titrate Abnormal weight loss 267 863862 R63.4 weight dropped > 12 lbs in a few days from admitappea rs to be error in initial intake weightwill monitor Acute cystitis 75610753 N30.00 now on cefpodoxim e to complete coursemoni tor for recurrent disease [id number] Dori Pena NP [facility] [address] [place] [address] 09/24/2023 09:21:20 09/29/2023 19:39:42 Closed fracture of multiple left ribs 0211441995 3057408 S22.42XG with multiple rib fractures and clavicular [...] in am off pmadjust as needed. Asthenia 44754935 R53.1 PT OT eval and treatmonit or need for increased support in community Type 1 frank betes mellitus 52123443 E10.9 BS controlled conttresib a 30 units qdSS insulinmon itor glucose and need to titrate Hypertensive disorder 38 114940 I10 stable on below regimennor vasc 10 mg qdcoreg 6.25 mg bidlosarta n 100 mg qdcurrentl y elevatedmo nitor need for increased control 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 949127 E06.3 hx of added to PMHmaintai priscilla onsynthroi d 112 mcg qdmonitor tsh prn Gastroesop hageal reflux disease 935770774 K21.9 nexium 40 mg qd continuedm onitor for effect Obesity 923252550 E66.09 dietary eval in patient with baseline DM Rheumatoid arthritis 698 26770 M06.9 remains onenbrel 50 mg q friday Irritable bowel syndrome 46031382 K58.9 ? IBSlinzess 290 mcg q ammonitor Coronary arteriosclerosis 95947357 I25.10 hx of MIatorvast atin 20 mg po dailyclopi dogrel 75 mg po q amsee above htn medsmonito r Recurrent falls 94521949 2 R29.6 reports history of falls with bank manager at home to help her and balance issuesrepo rts more than 5 falls/year supportive caremonito r Primary insomnia 6660847 F51.01 continueme latoninmon itor need to titrate Abnormal weight loss 267 827999 R63.4 weight dropped > 12 lbs in a few days from admitappea rs to be error in initial intake weight6/ reweigh pt todaywill monitor Acute cystitis 50759034 N30.00 now on cefpodoxim e to complete courseaysm ptomaticmo nitor for recurrent disease [id number] Dori Pena, AAKASH [facility] [address] [place] [address] 09/29/2023 10:39:23 10/03/2023 11:24:38 Closed fracture of multiple left ribs 0250072116 4614421 S22.42XG with multiple rib fractures and clavicular [...] to left shoulderad just as needed. Asthenia 11989054 R53.1 PT OT eval and treatmonit or need for increased support in community Type 1 frank betes mellitus 52000509 E10.9 BS controlled conttresib a 30 units qdSS insulinmon itor glucose and need to titrate Hypertensive disorder 38 540518 I10 stable on below regimen with slightly high bp likley related to pain, monitorcon tnorvasc 10 mg qdcoreg 6.25 mg bidlosarta n 100 mg qdcurrentl y elevatedmo nitor need for increased control 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 738373 E06.3 hx of added to PMHmaintai priscilla onsynthroi d 112 mcg qdmonitor tsh prn Gastroesop hageal reflux disease 177228955 K21.9 contnexium 40 mg qdmonitor for effect Obesity 197976648 E66.09 dietary evalbaseli ne DMweight today please Rheumatoid arthritis 698 18426 M06.9 remains onenbrel 50 mg q friday Irritable bowel syndrome 01531989 K58.9 ? IBSlinzess 290 mcg q ammonitor Coronary arteriosclerosis 51357038 I25.10 hx of MIatorvast atin 20 mg po dailyclopi dogrel 75 mg po q amsee above htn medsmonito r Recurrent falls 56436042 2 R29.6 reports history of falls with bank manager at home to help her and balance issuesrepo rts more than 5 falls/year supportive caremonito r Primary insomnia 6269317 F51.01 continueme latoninmon itor need to titrate Abnormal weight loss 267 550836 R63.4 weight dropped > 12 lbs in a few days from admitappea rs to be error in initial intake weight6/10 reweigh pt todaywill monitor Acute cystitis 99013997 N30.00 resolved cefpodoxim e to complete courseaysm ptomaticmo nitor for recurrent disease Mixed anxi ety and depressive disorder 282449261 F41.8 contaripip razole 20 mg dailyvenla faxine 150 mg po dailyprazo sin 6 mg po qhsmelaton in 3 mg po qhshydroxy zine 10 mg po q 8 hours prn anxiety6/1 0 renew clonazepam 0.5 mg po q 8 hours prn anxietymon itor [id number] [facility] [address] 10/02/2023 13:28:32 10/07/2023 10:08:18 Hypertensive disorder 61747865 I10 stable on below regimen as it comes down to 120s systolic post medication contnorvas c 10 mg qdcoreg 6.25 mg bidlosarta n 100 mg qdmonitor need for increased control Closed fra cture of multiple left ribs 9062157678 8221880 S22.42XG with left rib fxs 2-6 with [...] OT eval and txadjust as needed. Asthenia 41000936 R53.1 PT OT eval and treatmonit or need for increased support in community Type 1 frank betes mellitus 38190061 E10.9 BS controlled glucernaco nttresiba 30 units qdSS insulinmon itor glucose and need to titrate Gastroesop hageal reflux disease 914068155 K21.9 contnexium 40 mg qdmonitor for effect Rheumatoid arthritis 698 47296 M06.9 remains onenbrel 50 mg q friday Irritable bowel syndrome 24242225 K58.9 ? IBSlinzess 290 mcg q ammonitor Coronary arteriosclerosis 07049693 I25.10 hx of MIcoreg 6.25 mg po bidatorvas tatin 20 mg po dailyclopi dogrel 75 mg po q amsee above htn medsmonito r Recurrent falls 08621231 2 R29.6 reports history of falls with bank manager at home to help her and balance issuesrepo rts more than 5 falls/year supportive care and therapy here for balance, strengthen ing, gait, mobility, endurancem onitor Abnormal weight loss 267 086406 R63.4 weight dropped > 12 lbs in a few days from admitappea rs to be error in initial intake weight09/28 reweigh pt today10/01 reweight pt today, no weight since 09/21will monitor Mixed anxi ety and depressive disorder 131533045 F41.8 contaripip razole 20 mg dailyvenla faxine 150 mg po dailyprazo sin 6 mg po qhsmelaton in 3 mg po qhshydroxy zine 10 mg po q 8 hours prn anxiety6/ 0 renew clonazepam 0.5 mg po q 8 hours prn anxiety x 14 days10/01 cont as abovemonit or [id number] Dori Pena NP [facility] [address] [facility] [place] [address] 10/06/2023 12:02:36 10/09/2023 09:34:42 Closed fracture of multiple left ribs 6718357066 7195952 S22.42XG with left rib fxs 2-6 with [...] txadjust as needed. Abnormal weight loss 267 369172 R63.4 weight dropped > 12 lbs in a few days from admitappea rs to be error in initial intake weight10/04 160 lbs which is same as 09/22/23will monitor Hypertensive disorder 38 967412 I10 stable on below regimen as it comes down to 120s systolic post medication contnorvas c 10 mg qdcoreg 6.25 mg bidlosarta n 100 mg qdmonitor need for increased control Asthenia 44825628 R53.1 PT OT eval and treatmonit or need for increased support in community Type 1 frank betes mellitus 58905064 E10.9 pt having syrup and gingerale at [...] and need to titrate Rheumatoid arthritis 698 86098 M06.9 remains onenbrel 50 mg q friday Irritable bowel syndrome 38837037 K58.9 with constipati on today, states many days10/05 mon given today, will do supp if no bm by 4 pm10/05 start senna 8.6 mg po daily? IBSlinzess 290 mcg q ammonitor Coronary arteriosclerosis 57147187 I25.10 hx of MIcoreg 6.25 mg po bidatorvas tatin 20 mg po dailyclopi dogrel 75 mg po q amsee above htn medsmonito r Mixed anxi ety and depressive disorder 144563611 F41.8 contaripip razole 20 mg dailyvenla faxine 150 mg po dailyprazo sin 6 mg po qhsmelaton in 3 mg po qhshydroxy zine 10 mg po q 8 hours prn anxiety09/19 0 renew clonazepam 0.5 mg po q 8 hours prn anxiety x 14 days10/01 cont as above10/05 stable today with above planmonito r [id number] [facility] [address] 10/08/2023 11:40:06 10/15/2023 15:50:32 Type 1 diabetes mellitus 04592093 E10.9 pt having syrup and gingerale at [...] and need to titrate Irritable bowel syndrome 96384928 K58.9 with constipati on resolved with mom on 7 mon given today10/05 start senna 8.6 mg po daily? IBSlinzess 290 mcg q am10/07 having bm regularly nowmonitor Closed fra cture of multiple left ribs [id number] S22.42XG with left rib fxs 2-6 with [...] txadjust as needed. Abnormal weight loss 267 132410 R63.4 weight dropped > 12 lbs in a few days from admitappea rs to be error in initial intake weight10/04 160 lbs which is same as 09/22/23, ? incorrect admit [facility] but [facility] Hypertensive disorder 38 857605 I10 stable on below regimen as it comes down to 120s systolic post medication contnorvas c 10 mg qdcoreg 6.25 mg bidlosarta n 100 mg qdmonitor need for increased control Asthenia 61485965 R53.1 PT OT eval and treatmonit or need for increased support in community Rheumatoid arthritis 698 95342 M06.9 remains onenbrel 50 mg q friday Coronary arteriosclerosis 26541145 I25.10 hx of MIcoreg 6.25 mg po bidatorvas tatin 20 mg po dailyclopi dogrel 75 mg po q amsee above htn medsmonito r Mixed anxi ety and depressive disorder 971816744 F41.8 contaripip razole 20 mg dailyvenla faxine 150 mg po dailyprazo sin 6 mg po qhsmelaton in 3 mg po qhshydroxy zine 10 mg po q 8 hours prn anxiety/ 0 renew clonazepam 0.5 mg po q 8 hours prn anxiety x 14 days10/01 cont as above10/05 stable today with above plan10/07 stable today with above planmonito r Hyperkalemia 68032330 E8 7.5 k of 5.7 on give kayexalate 15 gm today10/08 bmp in ammonitor for additional e lyte abbormalit ies [id number] Dori Pena NP [address] [address] 10/09/2023 13:08:06 10/15/2023 16:27:22 Closed fracture of multiple left ribs [id number] 4279039 S22.42XG resolving with left rib fxs 2-6 [...] prnadjust as needed outpt with pcp Hyperkalemia 01578318 E8 7.5 k of 5.7 on give kayexalate 15 gm on 10/07monito r for additional e lyte abnormalit ies outpt with pcp Type 1 frank betes mellitus 47328083 E10.9 BS slightly high while at rehab with eating sugary foods/drin ksPlan: diet sodas and diet syrup and less sugary choicescon tglucernat resiba 30 units qdSS insulin with meals as per home schedmonit or glucose and need to titrate outpt with pcp outpt Irritable bowel syndrome 59686769 K58.9 with constipati on resolvedse nna 8.6 mg po daily (started at rehab)? IBSlinzess 290 mcg q ammonitor with pcp outpt Abnormal weight loss 267 052970 R63.4 weight dropped > 12 lbs in a few days from admitappea rs to be error in initial intake weight10/04 160 lbs which is same as 09/22/23, ? incorrect admit weight but seems stable nowmonitor oupt with pcp Hypertensive disorder 38 038704 I10 stable on below regimen as it comes down to 120s systolic post medication contnorvas c 10 mg qdcoreg 6.25 mg bidlosarta n 100 mg qdmonitor need for increased control outpt with pcp Asthenia 09511921 R53.1 PT OT eval and treat outpt prnmonitor need for increased support in community with pcp Rheumatoid arthritis 698 84211 M06.9 remains onenbrel 50 mg q fridaymoni tor outpt with pcp Coronary arteriosclerosis 01453828 I25.10 hx of MIcoreg 6.25 mg po bidatorvas tatin 20 mg po dailyclopi dogrel 75 mg po q amsee above htn medsmonito r outpt wtih pcp Mixed anxi ety and depressive disorder 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 F41.8 contaripip razole 20 mg dailyvenla faxine 150 mg po dailyprazo sin 6 mg po qhsmelaton in 3 mg po qhshydroxy zine 10 mg po q 8 hours prn anxietyclo nazepam 0.5 mg po q 8 hours prn anxietymon itor outpt with pcp Gastroesop hageal reflux disease 502129274 K21.9 contnexium 40 mg qdmonitor for effect outpt with pcp Recurrent falls 95085175 2 R29.6 reports history of falls with bank manager at home to help her and balance issuesrepo rts more than 5 falls/year supportive care and therapy here for balance, strengthen ing, gait, mobility, endurance outpt rpnmonitor outpt with pcp 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 050792 E06.3 hx of added to PMHmaintai priscilla onsynthroi d 112 mcg qdmonitor tsh prn with pcp Obesity 458679483 E66.09 dietary evalbaseli ne DMweight to be monitored with pcp outpt Primary insomnia 7206945 F51.01 continueme latoninmon itor need to titrate outpt Acute cystitis 71850222 N30.00 resolved cefpodoxim e to complete courseaysm [...] Member ID Guarantor Name 09/29/[address] [facility] - DOS ON OR AFTER 2022 - MEDICARE [place]VANTAGE [place]AC[place]/ADV ANTAGE - PPO) Brandie Luevano [id number] Brandie Luevano 10/02/[address] [facility] - DOS ON OR AFTER 2022 - [place]V ANTAGE - PPO) Brandie Luevano [id number] Brandie Luevano 10/06/2023 1 [facility] - DOS ON OR AFTER 2022 - [place]AGE [place]/ADV ANTAGE - PPO) Brandie Tanga [id number] Brandie Luevano 10/08/2023 1 [facility] - DOS ON OR AFTER 2022 - [place]V ANTAGE - PPO) Brandie Luevano [id number] Brandie Luevano 10/09/2023 1 [facility] - DOS ON OR AFTER 2022 - [place]/ADV ANTAGE - PPO) Brandie Luevnao [id number] Brandie Luevano Notes Date Note Type Note [...] cane usually Dori Pena, AAKASH [address] [facility], [address], [place], [address], [place] [employer] 09/29/2023 11:09:33 10/02/2023 text/html Pt is seen [...] is sitting up in bed with her AGRICULTURAL ENGINEERING TEACHER visiting. She has her sling in place [...] cane usually Dori Pena, AAKASH [address] [facility], [address], [place], [address], [facility] [employer] 10/02/2023 13:48:50 10/06/2023 text/html Pt is seen for a n acute rounding visit. Brandie is working here at [facility] and is feeling good and more mobile lately with left sling in place. She continues with therapy and making gains. She was treated for a UTI when she first came to [facility] and denies any urinary symptoms. Nursing [...] cane usually Dori Pena NP [address] [facility], [address], [place], [address], [employer] 10/06/2023 12:26:22 10/08/2023 text/html Pt is seen [...] in a sling for comfort. While at [facility]:She was treated for a UTI when she first came to [facility] and denies any urinary symptoms. Nursing [...] cane usually Dori Pena NP [address] [facility], [address], [place], [address], [employer] 10/08/2023 12:05:52 10/09/2023 text/html Pt is seen [...] in a sling for comfort. While at [facility]:She was treated for a UTI when she first came to [facility] and denies any urinary symptoms. Nursing [...] cane usually Dori Pena NP [address] [facility], [address], [place], [address], [facility] [email or web address] 10/09/2023 16:50:56 OBGyn Episode No OBEpisode recorded.
--- OUTSIDE RECORDS SUMMARY | 2024-07-07 12:14 | XMS_ITS ---
Author Organization [facility] Address [address] [place] [address] Care Team Providers Care Pumping Station Engineer Name Role Phone Adolph Terry MD, Pascual Primary Care Provide r Unavailable Cortes Castillo Jr Unavailable [phone] ClydeZeb peña Unavailable Unavailable Allergies Allergen (clinical drug ingredient) Drug/Non Drug Allergy documented on EMR Reaction Allergy Type Onset Date Status naproxen Naproxen Unknown Drug Allergy Active lorazepam Lorazepam Unknown Drug Allergy Active celecoxib Celebrex Unknown Drug Allergy Active zolpidem Ambien Unknown Drug Allergy Active tramadol Tramadol HCl Unknown Drug Allergy Acti ve REASON FOR VISIT Patient presents today for gerd, fe def anemia Medications Medication SIG (Take, Route, Frequency, Duration) Notes [...] 1 tablet Orally Once a day Active Social History Tobacco Use: Social History Observation Description Date Details (start date - stop date) Never Smoker NA - NA Tobacco Use/Smoking Question Answer Notes Patient is a nonsmoker Alcohol Screen Question Answer Notes Did you have a drink containing alcohol in the p ast year? No Points 0 Interpretation Negative Problems Problem Type SNOMED Code ICD Code Onset Dates Problem Status W/U Status Risk Notes Problem [id number] Colon cancer screening (Z12.11) Active confirmed Vital Signs Temperature 97.9 degrees Fahrenheit 11/24/19 24 Blood pressure systolic 000 mm Hg 11/24/19 24 Blood pressure diastolic 00 mm Hg 024 Height 59 in 11/24/2023 Weight 155 lb 4 oz lbs 11/24/2023 BMI 31.35 kg/m2 11/24/2023 Encounters Encounter Location Date Provider Diagnosis [facility] [address] [place] [address] 11/24/2023 Cortes Castillo Jr Gastroesophageal reflux disease without esophagitis K21.9 ; Iron deficiency anemia D50.9 and Colon cancer screening Z12.11 Assessments Encounter Date Diagnosis (ICD Code) Assessment Notes Treatment Notes Treatment Clinical Notes Section Notes 11/24/2023 Gastroesophageal reflux disease without esophagitis (ICD-10 - K21.9) Gastroesophageal reflux disease material was printed At this time, she is doing well. She will continue her present regimen. Followup will be in one year. She will call if she has problems. 11/24/2023 Iron deficiency anemia (ICD-10 - D50.9) At this time, she is doing well. She will continue her present regimen. Followup will be in one year. She will call if she has problems. 11/24/2023 Colon cancer screening (ICD-10 - Z12.11) At this time, she is doing well. She will continue her present regimen. Followup will be in one year. She will call if she has problems. Plan Of Treatment Treatment Notes Assessment Notes Gastroesophageal reflux dise ase without esophagitis Gastroesophageal reflux disease material was printed Next Appt Details Follow Up: 1 Year, Reason: Provider Name:Cortes wilburn Jr, 12/01/2024 09:20:00 AM, [address], [address], [place], [address], Progress Notes * EVELYN WILLIS:[birth year] (73 yo F)Acc No.[id number]:11/24/2023 Progress Notes Patient:?ROSANNE WILLIS Provider:?Cortes Castillo MD :1950???Age:73 Y???Sex:Female D ate:11/24/2023 Address:[address] [place] [address] Pcp:Pascual stack MD Subjective: * Chief Complaints: * ???1. Patient presents today for gerd, fe def anemia. * HPI: ???New symptom(s):? Rosanne is a pleasant 73-year-old woman seen today in followup. She was last seen in June of last year for followup of reflux disease and anemia. Since we saw her last, she's been doing well. She reports reflux symptoms are under good control on omeprazole 20 mg as needed. She has no complaints of dysphagia, hematemesis, or melena. She is not taking Carafate. Weight and appetite have been stable. ?Her anemia has been stable. She was hospitalized after her traumatic fall with clavicle and rib fractures in august. She was seen in followup for her anemia with Dr. Tang in October and was doing well. She gets B12 replacement therapy. She gets iron infusions as needed. She has had no GI bleeding. She is up-to-date on colon cancer screening. * Medical History:?Colonoscopy , 03/20/18, normal, ten-year followup recommended, Hemoccult positive stools, Iron deficiency anemia, B12 deficiency , Constipation, Hypothyroidism, Hypertension, Reflux, Diabetes mellitus type 2, elevated BMI, Anxiety/depression, Arthritis, Restless leg syndrome, Hyperlipidemia, atherosclerotic cardiovascular disease (ASCVD), Autoimmune thyroiditis, Palpitations, Tremors, Anemia, Asthma, Rib and clavicle fractures after traumatic fall 07/12. * Surgical History:?Caesaren s ection , Tubal ligation , Appendectomy , lap band insertion, subsequent removal 12/05, laparoscopic Darren-en-Y gastric bypass , cataract-lens implants-both eyes , cholecystectomy 2020. * Hospitalization/Major Diagno stic Procedure:?asthma , ribs, clavicle , hospital stay before also . * Family History:?Father: dece ased, diagnosed with Heart disease.?Mother: , diagnosed with Heart disease.? Deniesfamily hx of colon cancer, colon polyps, liver ds. * Social History:?Tobacco Use:?Tobacco Use/Smoking?Patient is a?nonsmoker.?Drugs/Alcohol:?Alcohol Screen?Did you have a drink containing alcohol in the past year??No,?Points?0,?Interpretation?Negative.?Miscellaneous:?Marital status: single. Occupation: unemployed. * Medications:?Taking oxyCODON E HCl 5 MG/5ML Solution 5 mL as needed Orally every 6 hrs, Taking Acetaminophen-Codeine #3 300-30 MG Tablet 1 tablet as needed Orally every 6 hrs, Taking amLODIPine Besylate 10 MG Tablet 1 tablet Orally Once a day, Taking clonazePAM 1 MG Tablet 1 tablet Orally Once a day, Taking Atorvastatin Calcium 10 MG Tablet 1 tablet Orally Once a day, Taking Vitamin A , Taking Plavix 75 MG Tablet 1 tablet Orally Once a day, Taking Furosemide 20 MG Tablet 1 tablet Orally Once a day, Taking Vitamin D3 , Taking Vitamin B1 , Taking Multi Vitamin/Minerals , Taking Carafate 1 GM Tablet 1 tablet on an empty stomach Orally Twice a day, Taking Dulcolax , Taking Effexor XR 150 MG Capsule Extended Release 24 Hour 1 capsule with food Orally Once a day, Notes: & 150 mg together, Taking Tirosint 88 MCG Capsule Orally , Taking Potassium Chloride 8 MEQ , Taking Venlafaxine HCl ER , Taking Calcium Citrate , Medication List reviewed and reconciled with the patient * Allergies:?Celebrex, Tramado l HCl, Naproxen, Ambien, Lorazepam. Objective: * Vitals:?Wt: 155 lb 4 oz, Ht: 59 in, BMI:31.35 Index, BP: 000/00 mm Hg, Temp: 97.9. * Examination: ???General Examination: ???On examination today, she appears well. Skin is anicteric. Lungs are clear. Heart shows regular rate and rhythm. Abdomen is soft without focal mass or tenderness. Extremities are without edema. Assessment: * Assessment: 1.?Gastroesophageal reflux d isease without esophagitis - K21.9 (Primary)?2.?Iron deficiency anemia - D50.9?3.?Colon cancer screening - Z12.11? At this time, she is doing w ell. She will continue her present regimen. Followup will be in one year. She will call if she has problems. Plan: * Treatment: * Procedure Codes:?3017F COLOR ECTAL CA SCREEN DOC REV, G9903 Pt scrn tbco id as non user, G9744 PATIENT NOT ELIG D/T ACTIVE DX HTN * Preventive Medicine:? ??Counseling:?Care goal follow-up plan:?Above Normal BMI Follow-up?Giving encouragement to exercise,?BMI management provided?Yes.? ??Urinary Incontinence:?Urinary Incontinence?Assessment:?Absent,?Plan of care documented:?No, reason not specified.? ??Screenings:?Fall Risk Screening?Fall Risk Assessment:?Two or more falls with injury in the past year.? * Follow Up:?1 Year * * Sign off status: Completed true * Provider:?Cortes Castillo MD Date:?0 11/24/2023 Generated for Suzanne phan/Hayden/eTransmitting on:?07/07/2024 12:14 PM EDT History and Physical Notes * HPI (History of Present Illness) Category Sub-Category Detail Notes Category Not es New symptom(s) Rosanne is a pleasant 73-year-old woman seen today in followup. She was last seen in June of last year for followup of reflux disease and anemia. Since we saw her last, she's been doing well. She reports reflux symptoms are under good control on omeprazole 20 mg as needed. She has no complaints of dysphagia, hematemesis, or melena. She is not taking Carafate. Weight and appetite have been stable. Her anemia has been stable. She was hospitalized after her traumatic fall with clavicle and rib fractures in august. She was seen in followup for her anemia with Dr. Tang in October and was doing well. She gets B12 replacement therapy. She gets iron infusions as needed. She has had no GI bleeding. She is up-to-date on colon cancer screening. Examination Category Sub-Category Detail Notes Category Not es General Examination On exami nation today, she appears well. Skin is anicteric. Lungs are clear. Heart shows regular rate and rhythm. Abdomen is soft without focal mass or tenderness. Extremities are without edema.
--- OUTSIDE RECORDS SUMMARY | 2024-07-07 12:14 | XMS_ITS ---
Author Organization [facility] Address [address] [place] [address] Care Team Providers Care Forensic Engineer Name Role Phone Adolph Terry MD, Pascual Primary Care Provide r Vidal Castillo Jr, Cortes Unavailable Zeb Tang Unavailable Unavailable Encounters Encounter Location Date Provider Diagnosis [facility] [address] [facility] [address] [place] [address] 11/24/2023 Cortes Castillo Jr Plan Of Treatment Next Appt Details Provider Name:Cortes wilburn Jr, 12/01/2024 09:20:00 AM, [address], [address], [place], [address], Progress Notes * GERARD WILLISADOB:[birth year] (74 yo F)Acc No.[id number]:11/24/2023 Patient:?ROSANNE WILLIS :1950???Age:73 Y???Sex:Female Address:[address] [place] [address] Subjective: * Chief Complaints: * ??? * Medical History:? * Surgical History:? * Hospitalization/Major Diagno stic Procedure:? * Medications:? Objective: Assessment: Plan: * Treatment: * Procedure Codes:? * Preventive Medicine:? ??Screenings:?Fall Risk Screening?Plan of Care:?Documented,?Type of fall plan of care:?Balance, strength and gait training or instruction provided.? * true * Date:? Generated for Suzanne phan/Hayden/Coniitting on:?07/07/2024 12:14 PM EDT
--- OUTSIDE RECORDS SUMMARY | 2024-07-07 12:14 | XMS_ITS | Clinical Summary ---
Author Organization [address] [facility] Address [address] [place] [address] Phone Care Team Providers Care Project Management Director Name Role Phone Pascual Darnell MD Primary Care Provi chio Social History Tobacco Use Types Packs/Day Years Used Date Smoking Tobacco: Never Assessed Comments Unknown Sex and Gender Information Value Date Recorded Sex Assigned at Not on file Legal Sex Female 1:35 PM EDT Gender Identity Not on file Sexual Orientation Not on file Plan of Treatment Upcoming Encounters Date Type Department Care Team ([facility] Contact Info) Description 09/02/2024 10:30 AM EDT Consult Orthopedic Surgery [place] [phone] [phone] Luciano Smith, DPM [address] [address] Health Maintenance Due Date Last Done Comments Breast Cancer Screening 1950 Diabetes: Annual GFR (Glomer ular Filtration Rate) 1950 Diabetes: Annual Foot Exam 02/08/1960 Diabetes: Annual Retina Eye Exam 02/08/1960 DTaP,Tdap,and Td Vaccines (1 - Tdap) 1969 Pneumococcal Vaccine: 50+ Ye ars (1 of 2 - PCV) 1969 Zoster Vaccines (1 of 2) 02/08/2000 Cholesterol Screening (Lipid Panel) 11/21/2023 Colorectal Cancer Screening: Colonoscopy 11/21/2023 Depression Screening 11/21/2023 Falls Risk Assessment 11/21/2023 Hepatitis C Screening 11/21/2023 Medicare Annual Wellness Visit 11/21/2023 Osteoporosis Screening (Bone Density Screening) 11/21/2023 Social Influencers of Health Screening 11/21/2023 COVID-19 Vaccine (2023-2 5 season) 2023 Influenza Vaccine (#1) 2023 Diabetes: Annual Urine Albumin-Creatinine Ratio (uACR) 06/18/2024 Diabetes: Blood Sugar Contro l Test (HGBA1C) 06/18/2024 RSV Immunization Patients 60 + Years Old (1 - 1-dose 75+ series) 2025 HIB Vaccines Aged Out No longer eligi [...] on patient's age to complete this topic MMR Vaccines Aged Out No longer eligi ble based on patient's age to complete this topic Meningococcal ACWY Vaccine Aged Out N o longer eligible based on patient's age to complete this topic Meningococcal B Vacine Aged Out No lo nger eligible based on patient's age to complete this topic RSV Immunization Patients Un chio 20 months Aged Out No longer eligible b ased on patient's age to complete this topic Varicella Vaccines Aged Out No longer eligible based on patient's age to complete this topic Insurance [employer] MEDICARE Member Subscriber Plan / Payer (Ef fective 2015-Present) Name:Brandie Santana Relation to Subscriber:Self Name:Brandie Santana Payer ID:[id number] Group ID:[id number] Type:Not on file Address: [place] [address] [place] [address] Care Teams Project Management Director Relationship Specialty Start Date End Date Pascual Darnell MD [address] [place] [id number] PCP - General Internal Medicine 06/18/24
--- OUTSIDE RECORDS SUMMARY | 2024-07-07 12:15 | XMS_ITS | Data Portability ---
Author Organization [employer] in [employer] Address [address] [place] [address] Care Team Providers Care Gameplay Programmer Name Role Phone [facility] Referring Provider [phone] Assessment Encounter Date Assessment Date Assessment LastModified by Organization Details LastModified Time 04/11/2023 04/11/2023 I provided real -time medical direction via phone for this encounter, and was available for additional phone based assistance as needed. I have reviewed and agree with the Assessment and Plan as documented by the Dredge Operator. Patient given the opportunity to ask questions. Advised to call for another visit over the weekend if not improving in 2 to 3 days however if develops CP/severe SOB/turning blue/uncontrolle d n/v/d or black/bloody emesis or stool/ AMS/ syncope/ hi fever unresponsive to APAP to call 911- verbalized understanding of instructions Not available 04/12/2023 10:53:05 Plan of Treatment [...] Not available Not available Not available 04/11/2023 [id number] RxNorm Anitha Camacho MD [address] [facility],[address], [place], [address] [facility] [employer] 3 14:49:47 4127 Celebrex medicatio n Not available Not available Not available 04/11/2023 [id number] RxNoalex Camacho MD [address] [facility],[address], [place], [address], [employer] 14:49:57 4128 tramadol medicatio n Not available Not available Not available 04/11/2023 [id number] RxGeovanny Camacho MD [address] [facility],[address], [place], [address], [email or web address] 14:50:04 Medications Name Sig Start Date Stop [...] Available Not Available No t Available FreeStyle [place] Lite kit USE DIRECTED active Not Available [...] Updated DateTime 3 97 % 97 % 50337.5 36 g 18 /min 97.8 [degF] 88 /min 167 mm[Hg] 84 mm[Hg] Not Available InstArstasisNoLast Guide - production 3 14:49:26 Social History None recorded. Functional Status None recorded. Mental Status None recorded. Family History Nothing Reported. Medical History No medical history recorded. Gynecological HistoryNo gynecological history recorded. Obstetrics History GPAL:G 0 P 0 0 0 0 Past Encounters Encounter ID Performer Location Encounter Start Date Encounter Closed Date Diagnosis/Indication Diagnosis SNOMED-CT Code Diagnosis ICD10 Code Diagnosis Note [id number] Anitha Camacho MD Main - [facility] [address] [place] [address] 04/11/2023 14:49:23 04/12/2023 10:53:58 Respiratory syncytial virus infection 97949502 B97.4 Continue medication s as prescribed ., [...] Patten Member ID Guarantor Name 04/11/2023 1 [facility] - DOS ON OR AFTER 2022 - DUAL ELIGIBLE - NURSING HOME OPTIONS AND ONE CARE (MEDICARE REPLACEMENT/ADV ANTAGE - HMO) Brandie Santana [id number] Brandie Ryanyes Notes Date Note Type Note Provider Name and Address Organization Details Recorded Time 04/11/2023 text/html HPI: 73 year old, Bahamian speaking member, F, with hx of DM, HTN, Asthma, Depression, hx of falls and chronic pain, reporting worsesing Productive cough, shortness of breath with activities and fatigue, worsening head aches, treated at [facility] on 04/10/23 and dx with RSV. Reported has fever and chills, believes her BP is high. Her SLAB WORKER worker is with her and member asked [...] .................. .................. .................. .................. .................. .................. ............... Dredge Operator Note From Teddy Miranda: Pt sts dis not call for WiOffer. [facility] set up appt. Pt was in ER yesterday diagnosed with RSV treated RX for ventalin and prednisone. Pt denies cp sob fever nausea diarrhea. Baseline vitals assessed. Lungs clear. No edema. [facility] contacted ..pt declined benzonatate. Pt advised self care and continue with RX meds. Pt education on signs indicating the ER. Dredge Operator Allergies: Lorazepam .................. .................. .................. .................. .................. .................. .................. ............... Disposition: Fulfilled Comments: Reviewed - Johana RNSEGMD: Patient seen yesterday evening [facility]. COvid negative per patient/ RSV +/She is using her albuterol every 4 hours. She is on prednisone. No nausea vomiting.Pat has hx that includes but not limited to: DM2/COPD/HTN/Fe deficiency anemia/hypothyroid ism/MDD with psychotic features/obesity status post laparoscopic gastrectomy/positi ve SUSAN/fibromyalgia. Anitha Camacho MD [address] [facility],[address], [place], [address], [place] - [employer] 04/12/2023 10:53:56 OBGyn Episode No OBEpisode recorded.
--- OUTSIDE RECORDS SUMMARY | 2024-07-07 12:15 | XMS_ITS | Patient Health Record ---
Author Organization [facility] Address [address] [place] [address] Care Team Providers Care Injection Moulding Machine Operator Name Role Phone Adolph Terry MD, Pascual Primary Care Provide r Unavailable Cortes Castillo Jr Unavailable [phone] Zeb Tang Unavailable Unavailable Allergies Allergen (clinical drug ingredient) Drug/Non Drug Allergy documented on EMR Reaction Allergy Type Onset Date Status naproxen Naproxen Unknown Drug Allergy Active lorazepam Lorazepam Unknown Drug Allergy Active celecoxib Celebrex Unknown Drug Allergy Active zolpidem Ambien Unknown Drug Allergy Active tramadol Tramadol HCl Unknown Drug Allergy Acti ve Reason For Referral No Information Medications Medication SIG (Take, Route, Frequency, Duration) [...] Active Multi Vitamin/Minerals Active Vitamin B1 Active Immunizations Vaccine Route Administration Date Status Comme nts Influenza Unknown 12/24/2017 Administered Influenza Unknown 02/02/2020 Administered Influenza Unknown 02/19/2021 Administered Influenza Unknown 03/12/2022 Administered Influenza Unknown 03/11/2023 Administered Social History Tobacco Use: Social History Observation [...] Problem Status W/U Status Risk Notes Problem 574120024 Colon cancer screening (Z12.11) Active confirmed Problem 35937103 Epigastric pain (R10.13) Active confirmed Problem Iron deficiency anemia (81232579) Iron deficiency anemia (D50.9) Active confirmed Problem 552945500 Gastroesophageal reflux disease without esophagitis (K21.9) Active confirmed Problem 18395650 Nausea and vomit ing, intractability of vomiting not specified, unspecified vomiting type (R11.2) Active confirmed Vital Signs Temperature 97.9 degrees Fahrenheit 11/24/2023 Blood pressure diastolic 00 mm Hg 11/24/2023 Height 59 in 11/24/2023 Blood pressure systolic 000 mm Hg 11/24/2023 Weight 155 lb 4 oz lbs 11/24/2023 BMI 31.35 kg/m2 11/24/2023 Encounters Encounter Location Date Provider Diagnosis [facility] [address] [place] [phone] 11/24/2023 Cortes Castillo Jr Gastroesophageal reflux disease without esophagitis K21.9 ; Iron deficiency anemia D50.9 and Colon cancer screening Z12.11 [facility] [address] [place] [phone] 08/19/2023 Cortes Castillo Jr [facility] [address] [place] [phone] 11/24/2023 Cortes Castillo Jr [facility] [address] [place] [phone] 03/01/2024 Cortes Castillo Jr Assessments Encounter Date Diagnosis (ICD Code) Assessment Notes Treatment Notes Treatment Clinical Notes Section Notes 11/24/2023 Iron deficiency anemia (ICD-10 - D50.9) At this time, she is doing well. She will continue her present regimen. Followup will be in one year. She will call if she has problems. 11/24/2023 Gastroesophageal reflux disease without esophagitis (ICD-10 [...] if she has problems. Plan Of Treatment Pending Test Test Name Order Date XR GI SERIES 05/01/2020 Future Test Test Name Order Date COLONOSCOPY 11/05/2017 Next Appt Details Provider Name:Cortesnessa wilburn , 12/01/2024 09:20:00 AM, [address] [place] [address], [address], [place], [address], Insurance Providers Payer Name Payer Address Payer Phone Subscriber Number Group Number Insured Name Patient Relationship to Insured Coverage Start Date Coverage End Date [facility] [address] Attn Claims MARK [place] [id number] ROSANNE WILLIS Self - patient is the insured Medical (General) History Medical History History ICD Code colonoscopy, 03/20/18, [...]
--- OUTSIDE RECORDS SUMMARY | 2024-07-07 12:15 | XMS_ITS ---
Author Organization [facility] Address [address] [place] [address] Care Team Providers Care Newscast Director Name Role Phone Adolph Terry MD, Pascual Primary Care Provide r Vidal Castillo Jr, Cortes Unavailable [phone] Zeb Tang Unavailable Unavailable Encounters Encounter Location Date Provider Diagnosis [facility] [address] [facility] [address] [place] [phone] 03/01/2024 Cortes Castillo Jr Plan Of Treatment Next Appt Details Provider Name:Cortes wilburn Jr, 12/01/2024 09:20:00 AM, [address], [address], [place], [address], Progress Notes * GERARD WILLISADOB:[birth year] (74 yo F)Acc No.[id number]:03/01/2024 Patient:?ROSANNE WILLIS :1950???Age:74 Y???Sex:Female Address:[address] [place] [address] Subjective: * Chief Complaints: * ??? * [...]
== END 2024-07-07 11:32 | disposition home or self-care (01) ==
LOC: HO.ENCR 10:25
PROVIDERS: PCP Internal Medicine; Visit Provider Nurse Practitioner Adult Health
DX: E10.649 Type 1 diabetes mellitus with hypoglycemia without coma (principal)
CPT/HCPCS: 99214; G2211

== ENCOUNTER → 2024-07-07 10:25 | Outpatient (BNVA) | payer OTHER, SELFPAY | PROVIDERS: PCP Internal Medicine; Visit Provider Nurse Practitioner Adult Health | DX: E10.649 Type 1 diabetes mellitus with hypoglycemia without coma (principal); Z79.4 Long term (current) use of insulin | CPT/HCPCS: 82947; 99212 ==

== ENCOUNTER 2024-07-26 09:02 | Outpatient (AMB) | payer OTHER, SELFPAY ==
[2024-07-26 09:19] VITALS: BP 108/50; PULSE 76; BMI 29.0
--- NOTE | 2024-07-26 09:19 | A.OFFVIS_ITS ---
Vital Signs 07/26/24 09:19 Height 4 ft 11 in Weight 143 lb 11.862 oz BMI 29.0 BP 108/50 L Blood Pressure Location Lt brachial Position Sitting Pulse 76 Pulse Source Pulse Oximeter Intake Visit Reasons: Atherosclerotic cardiovascular disease Phone Technician Required: Yes Phone Technician Services: Phone Technician Present Phone Technician Name: Mary [phone] Accompanied by: Other Relationship Allergies lorazepam [LORAZEPAM] Allergy (Severe, Verified 07/07/24 10:48) DELIRIUM celecoxib [From Celebrex] Allergy (Intermediate, Verified 07/07/24 10:48) ITCHING tramadol [TRAMADOL] Allergy (Intermediate, Verified 07/07/24 10:48) ITCHING zolpidem [Ambien] Allergy (Unknown, Verified 07/07/24 10:48) unknown Medication List - Last Reconciled 07/26/24 by Osman Uribe MD acetaminophen 650 mg (2 x 325 mg) PO Q6H PRN Actemra ACTPen (tocilizumab) 162 mg (0.9 mL) subcut Q2W NS albuterol sulfate 90 mcg/actuation 2 puffs inhalation Q4-6H PRN albuterol sulfate 2.5 mg (3 mL) inhalation Q3H PRN amlodipine 10 mg PO DAILY aripiprazole 20 mg PO DAILY atorvastatin 20 mg PO DAILY bisacodyl 10 mg (2 x 5 mg) PO BEDTIME blood sugar diagnostic (FreeStyle Lite Strips) TEST BLOOD SUGAR 8 TIMES EVERY DAY blood-glucose meter (FreeStyle Lite Meter kit) As directed calcium citrate 400 mg (2 x 200 mg (950 mg)) PO BID carvedilol 6.25 mg PO BID cholecalciferol (vitamin D3) (Vitamin D3) 50 mcg PO QAM clonazepam 1 tab PO Q8H PRN clopidogrel 75 mg PO QAM cyclobenzaprine 10 mg PO TID PRN esomeprazole magnesium 40 mg PO DAILY folic acid 1 mg PO DAILY gabapentin 100 mg PO BID glucagon 3 mg/actuation (Baqsimi) 3 mg intranasal ONCE PRN 30 days hydroxyzine HCl 10 mg PO Q8H PRN insulin aspart (niacinamide) 100 unit/mL (3 mL) (Fiasp FlexTouch U-100 Insulin) 2 - 9 units subcut QID 30 days insulin syringe-needle U-100 (BD Insulin Syringe Ultra-Fine) As directed 3 times per day ipratropium-albuterol 0.5 mg-3 mg(2.5 mg base)/3 mL 3 mL inhalation RQ4H WHILE AWAKE 7 days levothyroxine 112 mcg PO DAILY linaclotide (Linzess) 290 mcg PO QAM losartan 100 mg PO DAILY melatonin 3 mg PO BEDTIME methocarbamol 500 mg PO DAILY nebulizers As directed nut.tx.gluc.intol,lac-free,soy (Glucerna oral liquid) 1 ea PO BID 28 days ondansetron 4 mg PO Q8H PRN oxycodone 5 mg PO Q4H PRN pen needle, diabetic (Pentips Pen Needle) USE FIVE TIMES DAILY prazosin 6 mg PO BEDTIME Tresiba FlexTouch U-100 (insulin degludec) 20 units (0.2 mL) subcut DAILY 30 days NS venlafaxine ER (Effexor XR) 150 mg PO DAILY zinc gluconate 30 mg PO DAILY HPI Comments Details: Brandie returns for follow-up regarding coronary disease. To recall, in 2017, she underwent cardiac catheterization following an NSTEMI in the context of diabetic ketoacidosis. She only had mild disease without any obstructive lesions. Nonspecific complaints like feeling short of breath at different times. Nothing clearly exertional. She also describes some random palpitations at times. No angina. Frail[facility] Medical History Heart palpitations Hypoglycemia due to insulin Elevated parathyroid hormone Osteoporosis Hyperlipidemia (04/21/1959) Depressive disorder (04/21/1959) Nutritional anemia (04/21/1959) Shortness of breath Hypothyroidism (04/21/1959) Anemia Chronic gastritis NSTEMI (non-ST elevated myocardial infarction) Recurrent falls (12/04/11) Iron deficiency anemia (04/21/1959) Fibromyositis (04/21/1959) Eczema (04/21/1959) High risk medication use Hepatitis C antibody positive in blood Screening for osteoporosis Screening for viral disease Joint swelling Overweight (BMI 25.0-29.9) Neck pain Swelling of knee joint, right Intra-abdominal abscess Diabetes Elevated liver function tests Intestinal malabsorption following gastrectomy Obesity (BMI 30-39.9) 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 Hypertension Cholecystitis Hyperlipidemia, unspecified Essential hypertension Atherosclerotic cardiovascular disease Fibromyalgia Folliculitis Anxiety Depression History of myocardial infarction Diabetes type 1, uncontrolled 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 Mother CVA (cerebral vascular accident) Sister Hypertension Brother Hypertension Liver cancer Social History Household Members: None Housing: Apartment Are you a primary customer care manager to a significant other at home: No Do you presently have visiting nurse or other home services: Yes Unable to assess alcohol history related to: Unable to respond Alcohol intake: never Patient Tobacco Use Status: Never used Tobacco Advance Directives Date on File: 09/17/23 service: No Current occupational status: disabled Current occupation: right hand dominant Review of Systems Const Denies chills, Denies fatigue, Denies fever(s), Denies weight gain and Denies weight loss ENT Denies dizziness Card Denies chest pain, Denies leg edema, Denies lightheadedness, Reports palpitations, Denies dyspnea on exertion, Denies orthopnea and Denies other Resp Denies cough and Denies dyspnea on exertion GI Denies hematochezia and Denies change in stool character Musc Denies abnormal gait, Denies muscle weakness, Denies numbness, Denies radiating pain into limb and Denies tingling Neuro Denies abnormal gait, Denies dizziness, Denies numbness and Denies tingling Endo Denies fatigue and Reports palpitations Physical Exam Vital Signs: Last Vital Signs Pulse 76 07/26/24 09:19 BP 108/50 L 07/26/24 09:19 BMI result Body Mass Index 29.0 Const General: comfortable and no acute distress Orientation/consciousness: patient oriented x3 HEENT Other: Unremarkable Head: Yes normal to inspection Neck Neck: Yes normal visual inspection Chest Chest palpation & inspection: normal inspection of the chest Resp Auscultation: clear to auscultation bilaterally Cardio Palpation: normal PMI Heart sounds: S1 normal heart sound present, S2 normal heart sound present, no gallops, no murmurs and no rubs GI Palpation (GI): Soft to palpation Back/Spine/Pelvis Other: unremarkable Skin General skin exam: no rashes or lesions noted Neuro General: patient oriented x3 Extrem General: Yes normal to inspection Psych Mental Status: mental status grossly normal Office Procedures EKG Details: Error [id number], Complete Assessment & Plan Assessment & Plan (1) Atherosclerotic cardiovascular disease: Code(s): I25.10 - Atherosclerotic heart disease of ruby coronary artery without angina pectoris Category: Medical (2) Hyperlipidemia, unspecified: Code(s): E78.5 - Hyperlipidemia, unspecified Category: Medical Qualifiers: Hyperlipidemia type: other hyperlipidemia Qualified Code(s): E78.49 - Other hyperlipidemia (3) Shortness of breath: Code(s): R06.02 - Shortness of breath Category: Medical (4) Heart palpitations: Code(s): R00.2 - Palpitations Category: Medical Plan Cardiac catheterization - 30% disease in the ostial left anterior descending artery. There was no clear culprit for the NSTEMI. Mainly risk factor modification. She remains on statins and cholesterol is well controlled. LDL is 42 mg/dL. Due to bariatric surgery history, she is on Plavix and not aspirin. No changes with that, as she has been doing okay. With regard to question of shortness of breath, not clear if it is just from deconditioning or true cardiac etiology. Get echocardiogram. Palpitations are also nonspecific. Obtain Holter. Orders: Orders CA echo transthoracic complete Today R06.02 - Shortness of breath ECG 3 day holter monitor Today R00.2 - Palpitations Coding Level of Care Code Est Pt Level 4 (39986) Complex EM visit Add On G2211 Diagnoses Atherosclerotic cardiovascular disease I25.10 Other hyperlipidemia E78.49 Hyperlipidemia type: other hyperlipidemia Shortness of breath R06.02 Heart palpitations R00.2 CPT Codes EKG - CPT: 07652-[id number], Complete ([id number])
--- OUTSIDE RECORDS SUMMARY | 2024-07-26 10:00 | XMS_ITS | Encounter Summary ---
Author Organization [employer] Address [address] [place] [address] Care Team Providers Care National Park Ranger Name Role Phone Pascual Daly MD Primary Care Provide r Fani Heck PharmD Unavailable [phone] Reason for Visit * Reason Comments Med Refill Encounter Details Date Type Department Care Team ([facility] st Contact Info) Description 03/27/2023 Refill [facility] [address] [place] [address] Titi Gray FNP Major depressive disorder with [...] Care Team (Late st Contact Info) Description 08/03/2024 10:00 AM EDT Office Visit [facility] [address] [place] [address] Pascual Daly MD [address] [place] [address] 08/16/2024 11:00 AM EDT Medication Management [facility] [address] [place] [address] Dasia Waters, KristiD [address] [place] [address] 10/28/2024 10:30 AM EDT Clinical Support [facility] [address] [place] [address] Amanda Fernández, AALIYAH [address] [place] [address] documented as of this encounter Goals Goal Patient Goal Type Associated Problems Recent Progress Patient-Stated? Author Blood Pressure < 140/90 Blood Pressure 133/70( 025 11:28 AM EST) Fani Thomas, KristiD documented as of this encounter Visit Diagnoses Diagnosis Major depressive disorder with psychotic features (CMS/HCC) documented in this encounter Additional Health Concerns Assessment Noted Time PHQ-9 Depression Total Score: 9 02/25/20 23 11:02 AM EST documented as of this encounter Care Teams National Park Ranger Relationship Specialty Start Date End Date Pascual Daly MD [address] [place] [address] PCP - General Internal Medicine 02/22/14 Fani Heck PharmD [address] [place] [address] Pharmacist Internal Medicine 12/16/22 documented as of this encounter
--- OUTSIDE RECORDS SUMMARY | 2024-07-26 10:01 | XMS_ITS | Encounter Summary ---
Author Organization [employer] Address [address] [facility] [address] [place] [address] Care Team Providers Care Student Dean Name Role Phone Pascual Daly MD Primary Care Provide r Fani Heck PharmD Unavailable [phone] Reason for Visit * Reason Comments controlled substance treatment Encounter Details Date Type Department Care Team (Latest Contact Info) Description 07/22/2024 10:30 AM EDT Clinical Support [facility] [address] [place] [address] Amanda Fernández, AALIYAH [address] [place] [address] Fibromyalgia (Primary Dx); Long-term current use of opiate analgesic Social History Tobacco Use Types Packs/Day Years [...] Progress Notes * Amanda Fernández RN - 07/22/2024 10:30 AM EDT S: PIN MAKER RV. Patient here with SERVICE WRITER ADVISOR, Gabriela. Prescribed Oxycodone 5mg bid PRN. States has been takingas prescribed. BZO from an outside provider. Denies nicotine/ETOH/illicit drugs use. Currently rates pain a 7/10 and states medication is 80% effective at alleviating pain. Current pain sites are L sh oulder, knees, upper back/neck. Chronic pain group pamphlet given, patient not interested at this time. No questions/ concerns at this time. O: WEDDING CAKE DESIGNER verified today. Rx last filled 07/09/24. Patient has 31 pills remaining, 29 expected. Medication is not being overused. Last PCP visit was 05/04/24. Utox performed, positive for OXY only. Utox as expected. A: PIN MAKER Agreement Revisit: Opioid dependence related to chronic pain. P: Patient to continue taking medication only as prescribed; Next PIN MAKER RV appointment scheduled for 10/28/24 @ 10:30am. F/u with PCP 08/03/24. F/U sooner PRN. Reminder slip given. Patient verbalized understanding and agreed to plan. documented in this encounter Plan of Treatment Upcoming Encounters Date Type Department Care Team ([facility] st Contact Info) Description 08/03/2024 10:00 AM EDT Office Visit [facility] [address] [place] [address] Pascual Daly MD [address] [place] [address] 08/16/2024 11:00 AM EDT Medication Management [facility] [address] [place] [address] Dasia Waters PharmD [address] [place] [address] 10/28/2024 10:30 AM EDT Clinical Support [facility] [address] [place], [place] [phone] Amanda Fernández, RN [address] [place] [address] documented as of this encounter Goals Goal Patient Goal Type Associated Problems Recent Progress Patient-Stated? Author Blood Pressure < 140/90 Blood Pressure 133/70( 025 11:28 AM EST) No Fani Heck, Woody documented as of this encounter Procedures Procedure Name Priority Date/Time Associated Diagnosis Comments POCT HEATHER-14 URINE DRUG SCREEN Routine 07/22/2024 10:33 AM EDT Long-term current use of opiate analgesic Fibromyalgia documented in this encounter Results * POCT HEATHER-14 Urine Drug Screen (07/22/2024 10:33 AM EDT) Oxycodone Screen, Urine Positive Urine Urine specimen obtained by clean catch procedure / Unknown 07/22/2024 10:33 AM EDT Narrative Amanda Fernández, AALIYAH - 07/22/2024 10:33 AM EDT Lot# [id number] Exp: 12-08-25 us Pascual Terry MD POINT OF CARE TEST EN TER/EDIT ORDERABLES Final Result documented in this encounter Visit Diagnoses Diagnosis Fibromyalgia- Primary Unspecified myalgia and myositis Long-term current use of opiate analgesic Encounter for long-term (current) use of other medications documented in this encounter Additional Health Concerns Assessment Noted Time PHQ-9 Depression Total Score: 9 01/29/20 24 11:00 AM EDT documented as of this encounter Care Teams Student Dean Relationship Specialty Start Date End Date Pascual Daly MD [address] [place] [address] PCP - General Internal Medicine 02/22/14 Fani Heck PharmD [address] [place] [address] Pharmacist Internal Medicine 12/16/22 documented as of this encounter
--- OUTSIDE RECORDS SUMMARY | 2024-07-26 10:01 | XMS_ITS | Encounter Summary ---
Author Organization [employer] Address [address] [facility] 7t [place] [address] Care Team Providers Care Sack Sewer Name Role Phone Pascual Daly MD Primary Care Provide r Fani Heck PharmD Unavailable [phone] Encounter Details Date Type Department Care Team ([facility] st Contact Info) Description 09/25/2023 Telephone [facility] [place] [facility] [address] [place] [address] Pascual Daly MD [address] [place] [address] Social History Tobacco Use Types Packs/Day Years [...] Description 08/03/2024 10:00 AM EDT Office Visit [facility] [place] [facility] [address] [place] [phone] Pascual Daly MD [address] [place] [address] 08/16/2024 11:00 AM EDT Medication Management [facility] [place] [facility] [address] [place] [address] Dasia Wtaers, KristiD [address] [place] [address] 10/28/2024 10:30 AM EDT Clinical Support [facility] [place] [facility] PEDS [address] [place] [address] Amanda Fernández, RN [address] [place] [address] documented as of this encounter Goals Goal [...] documented as of this encounter Care Teams Sack Sewer Relationship Specialty Start Date End Date Pascual Daly MD [address] [place] [address] PCP - General Internal Medicine 02/22/14 Fani Heck PharmD [address] [place] [address] Pharmacist Internal Medicine 12/16/22 documented as of this encounter
--- OUTSIDE RECORDS SUMMARY | 2024-07-26 10:01 | XMS_ITS | Encounter Summary ---
Author Organization [employer] Address [address] [facility] 7t [place] [address] Care Team Providers Care Emergency Room Tech Name Role Phone Pascual Daly MD Primary Care Provide r Fani Heck PharmD Unavailable [phone] Encounter Details Date Type Department Care Team (Latest Contact Info) Description 07/22/2024 Travel Social History Tobacco Use Types Packs/Day [...] Description 08/03/2024 10:00 AM EDT Office Visit [facility] [address] [place] [address] Pascual Daly MD [address] [place] [address] 08/16/2024 11:00 AM EDT Medication Management [facility] [address] [place] [address] Dasia Waters, PharmD [address] [place] [address] 10/28/2024 10:30 AM EDT Clinical Support [facility] [address] [place], [place] [phone] Amanda Fernández, RN [address] [place] [address] documented as of this encounter Goals Goal [...] documented as of this encounter Care Teams Emergency Room Tech Relationship Specialty Start Date End Date Pascual Daly MD [address] [place] [address] PCP - General Internal Medicine 02/22/14 Fani Heck, Woody [address] [place] [address] Pharmacist Internal Medicine 12/16/22 documented as of this encounter
--- OUTSIDE RECORDS SUMMARY | 2024-07-26 10:01 | XMS_ITS | Encounter Summary ---
Author Organization [employer] Address [address] [facility] 7t [place] [address] Care Team Providers Care Olive Pitter Name Role Phone Pascual Daly MD Primary Care Provide r Fani Heck PharmD Unavailable [phone] Encounter Details Date Type Department Care Team ([facility] Contact Info) Description 07/22/2024 Telephone [facility] [address] [place], [place] [phone] Amanda Fernández, RN [address] [place] [address] Social History Tobacco Use Types Packs/Day Years [...] encounter Miscellaneous Notes * Telephone Encounter - Amanda Fernández RN - 07/22/2024 10:21 AM EDT .What CANVASSING MANAGER Tier would you like this patient to be? Tier 1 = HIGH RISK, Monthly CANVASSING MANAGER visits Tier 2 = MODerate RISK, Q3 Month visits Tier 3 = LOW RISK = Q4-6 month visits documented in this encounter Plan of Treatment Upcoming Encounters Date Type Department Care Team (Late st Contact Info) Description 08/03/2024 10:00 AM EDT Office Visit [facility] [address] [place] [address] Pascual Daly MD [address] [place] [address] 08/16/2024 11:00 AM EDT Medication Management [facility] [address] [place] [address] Dasia Waters, Woody [address] [place] [address] 10/28/2024 10:30 AM EDT Clinical Support [facility] [address] [place] [address] Amanda Fernández, AALIYAH [address] [place] [address] documented as of this encounter Goals Goal [...] documented as of this encounter Care Teams Olive Pitter Relationship Specialty Start Date End Date Pascual Daly MD [address] [place] [address] PCP - General Internal Medicine 02/22/14 Fani Heck, KristiD [address] [place] [address] Pharmacist Internal Medicine 12/16/22 documented as of this encounter
--- OUTSIDE RECORDS SUMMARY | 2024-07-26 10:01 | XMS_ITS | Data Portability ---
Author Organization [place] [employer] Address [address] [place] [address] Care Team Providers Care Carpenter/Labor Name Role Phone [facility] Referring Provider Assessment Encounter Date Assessment Date Assessment LastModified by Organization Details LastModified Time 04/11/2023 04/11/2023 I provided real -time medical direction via phone for this encounter, and was available for additional phone based assistance as needed. I have reviewed and agree with the Assessment and Plan as documented by the Matrix Worker. Patient given the opportunity to ask questions. Advised to call for another visit over the weekend if not improving in 2 to 3 days however if develops CP/severe SOB/turning blue/uncontrolle d n/v/d or black/bloody emesis or stool/ AMS/ syncope/ hi fever unresponsive to APAP to call 911- verbalized understanding of instructions [email or web address] Not available 04/12/2023 10:53:05 Plan of Treatment [...] Not available Not available Not available 04/11/2023 [id number] RxNorm Anitha Camacho MD [address] [facility],[address], [place], [address] [facility] [place] 3 14:49:47 4127 Celebrex medicatio n Not available Not available Not available 04/11/2023 [id number] RxNoalex Camacho MD [address] [facility],[address], [place], [address], [place] 14:49:57 4128 tramadol medicatio n Not available Not available Not available 04/11/2023 [id number] RxGeovanny Camacho MD [address] [facility],[address], [place], [address], [employer] 14:50:04 Medications Name Sig Start Date Stop [...] Available Not Available No t Available FreeStyle [place] Lite kit USE DIRECTED active Not Available [...] Updated DateTime 3 97 % 97 % 17948.5 36 g 18 /min 97.8 [degF] 88 /min 167 mm[Hg] 84 mm[Hg] Not Available [employer] - production 3 14:49:26 Social History None recorded. Functional Status None recorded. Mental Status None recorded. Family History Nothing Reported. Medical History No medical history recorded. Gynecological HistoryNo gynecological history recorded. Obstetrics History GPAL:G 0 P 0 0 0 0 Past Encounters Encounter ID Performer Location Encounter Start Date Encounter Closed Date Diagnosis/Indication Diagnosis SNOMED-CT Code Diagnosis ICD10 Code Diagnosis Note [id number] Anitha Camacho MD [facility] - [facility] [address] [place] [address] 04/11/2023 14:49:23 04/12/2023 10:53:58 Respiratory syncytial virus infection 41310547 B97.4 Continue medication s as prescribed ., [...] Member ID Guarantor Name 04/11/2023 1 [facility] - DOS ON OR AFTER 2022 - DUAL ELIGIBLE - LONGTERM OPTIONS AND ONE CARE (MEDICARE REPLACEMENT/ADV ANTAGE - HMO) Branide Santana [id number] Brandie Ryanyes Notes Date Note Type Note Provider Name and Address Organization Details Recorded Time 04/11/2023 text/html HPI: 73 year old, Bhutanese speaking member, F, with hx of DM, HTN, Asthma, Depression, hx of falls and chronic pain, reporting worsesing Productive cough, shortness of breath with activities and fatigue, worsening head aches, treated at [facility] ER on 04/10/23 and dx with RSV. Reported has fever and chills, believes her BP is high. Her ANESTHESIOLOGY FELLOW worker is with her and member asked [...] .................. .................. .................. .................. .................. .................. ............... Matrix Worker Note From Teddy Miranda: Pt sts dis not call for [email or web address]. [facility] set up appt. Pt was in ER yesterday diagnosed with RSV treated RX for ventalin and prednisone. Pt denies cp sob fever nausea diarrhea. Baseline vitals assessed. Lungs clear. No edema. [facility] contacted ..pt declined benzonatate. Pt advised self care and continue with RX meds. Pt education on signs indicating the ER. Matrix Worker Allergies: Lorazepam .................. .................. .................. .................. .................. .................. .................. ............... Disposition: Fulfilled Comments: Reviewed - Johana RNSEGMD: Patient seen yesterday evening [facility]. COvid negative per patient/ RSV +/She is using her albuterol every 4 hours. She is on prednisone. No nausea vomiting.Pat has hx that includes but not limited to: DM2/COPD/HTN/Fe deficiency anemia/hypothyroid ism/MDD with psychotic features/obesity status post laparoscopic gastrectomy/positi ve SUSAN/fibromyalgia. Anitha Camacho MD [address] [facility], [place], [address], [place] [facility] 04/12/2023 10:53:56 OBGyn Episode No OBEpisode recorded.
--- OUTSIDE RECORDS SUMMARY | 2024-07-26 10:01 | XMS_ITS | Encounter Summary ---
Author Organization [employer] Address [address] [facility] [address] [place] [address] Care Team Providers Care Mixer Operator Hot Metal Name Role Phone Pascual Daly MD Primary Care Provide r Fani Heck PharmD Unavailable [phone] Reason for Visit * Reason Comments Med Refill Encounter Details Date Type Department Care Team (Late st Contact Info) Description 08/26/2023 Refill [facility] [address] [place] [address] Momo Rizo MD [address] [place] [address] Benign hypertension Social History Tobacco Use Types [...] Description 08/03/2024 10:00 AM EDT Office Visit [facility] [address] [place] [address] Pascual Daly MD [address] [place] [address] 08/16/2024 11:00 AM EDT Medication Management [facility] [address] [place] [address] Dasia Waters PharmD [address] [place] [address] 10/28/2024 10:30 AM EDT Clinical Support [facility] [address] [place] [address] Amanda Fernández, RN [address] [place] [address] documented as of this encounter Goals Goal [...] documented as of this encounter Care Teams Mixer Operator Hot Metal Relationship Specialty Start Date End Date Pascual Daly MD [address] [place] [address] PCP - General Internal Medicine 02/22/14 Fani Heck, KristiD [address] [place] [address] Pharmacist Internal Medicine 12/16/22 documented as of this encounter
--- OUTSIDE RECORDS SUMMARY | 2024-07-26 10:01 | XMS_ITS | Data Portability ---
Author Organization [facility] Integrated [facility] Management 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 Plan of Treatment Reminders Order Date Submit Date Provider Last Modified By Organization Details Last Modified Time Details Appointments None recorded. Lab None recorded. Referral None recorded. Procedures None recorded. Surgeries None recorded. Imaging None recorded. Medication Orders oxycodone 5 mg tablet 2023 024 [facility] , [address] [place] [address], [address], 4 21:23:28 oxycodone 5 mg tablet 2023 024 [facility] , [address] [place] [address], [address], 4 13:28:18 Patient TargetsNo targets recorded. Patient InstructionsNo instructions recorded. Reason for Referral None Reported. 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 2023 Dori Pena NP [address] [facility], [address], [place], [address], [facility] [employer] 4 15:49:21 Hypertensive disorder 74977786 Active 2023 Dori Pena NP [address], [address], [place], [address], [facility] 4 15:49:57 Gastroesophage al reflux disease 551817624 Active 2023 Dori Pena NP [address], [address], [place], [address], [place] [facility] 4 15:51:24 Rheumatoid arthritis 75944967 Active 2023 Dori Pena NP [address], [address], [place], [address], [facility] [facility] 4 15:51:29 Mixed anxiety and depressive disorder 503969048 Active 2023 Dori Pena NP [address], [place], [address], [place] [facility] 4 15:51:45 Obesity 057119747 Active 2023 Dori Pena NP [address], [place], [address], [facility] 4 15:51:51 Closed flail chest 827084530 Active 2023 Dori Pena NP [address], [address], [place], [address], [facility] 4 15:52:35 Asthenia 05724322 Active 2023 Dori Pena NP [address], [address], [place], [address], [facility] 4 15:52:46 Irritable bowel syndrome 72597278 Active 2023 Dori Pena NP [address], [place], [address], [facility] 4 16:06:46 Recurrent falls 679897727 Active 2023 Dori Pena NP [address], [place], [address], [facility] 4 16:38:03 Problem Notes None recorded. Procedures Surgical History Date Name Laterality Status Provider Name and Address Organization Details Recorded Time bypass gastroenterostomy completed Dori Pena, AAKASH [address], [place], [address], [facility] 09/17/2023 15:40:41 Laparoscopic cholecystectomy completed Dori Pena NP [address] [facility], [address], [place], [address], [facility] 09/17/2023 15:41:25 fixed suspension procedure of urinary bladder neck completed Dori Pena NP [address], [place], [address], [facility] 09/17/2023 15:42:01 Appendectomy completed Dori Pena NP [address], [place], [address], [facility] 09/17/2023 15:42:11 bilateral cataract surgery completed Dori Pena NP [address] [facility], [address], [place], [address], [facility] 09/17/2023 15:42:26 Imaging Results None recorded. Procedure Notes None recorded. Medical Equipment None Reported. Allergies Allergen ID Allergen Name Allergen Category Reaction Reaction Severity Criticality Documentation Date Start Date Code Code System Note Provider Name and Address Organization Details Recorded Time 04627 celecoxib medicatio n other Not available unabletoasse 09/17/2023 54430 7 RxNorm unkno wn Not Available Not Available Not Available 54350 lorazepam medicatio n other Not available [facility] 09/17/2023 6470 RxNorm unkno wn Not Available Not Available Not Available 40109 tramadol medicatio n other Not available unabletoasse 09/17/2023 24168 RxNorm unkno wn Not Available Not Available Not Available 60493 zolpidem medicatio n other Not available unabletoasse 09/17/2023 93779 RxNorm unkno wn Not Available Not Available [...] Address Organization Details Last Updated DateTime 4 52580.7 8 g 98 /min 18 /min 97.8 [degF] 94 % 94 % 150 mm[Hg] 77 mm[Hg] Dori Pena NP [address] [facility] [address], [place], [address], [facility] 4 10:49:41 Date Recorded Body weight Heart rate Respiratory rate Body temperature Oxygen saturation Oxygen saturation in Arterial blood by Pulse oximetry Systolic blood pressure Diastolic blood pressure Provider Name and Address Organization Details Last Updated DateTime 4 37291.7 8 g 83 /min 18 /min 97 [degF] 98 % 98 % 148 mm[Hg] 74 mm[Hg] Dori Pena NP [address] [facility] [address], [place], [address], [facility] 4 13:29:12 Date Recorded Body weight Heart rate Respiratory rate Body temperature Oxygen saturation Oxygen saturation in Arterial blood by Pulse oximetry Systolic blood pressure Diastolic blood pressure Provider Name and Address Organization Details Last Updated DateTime 4 88071.7 8 g 76 /min 18 /min 97.8 [degF] 97 % 97 % 128 mm[Hg] 78 mm[Hg] Dori Pena NP [address] [facility] [address], [place], [address], [facility] 4 12:05:35 Date Recorded Body weight Heart rate Respiratory rate Body temperature Oxygen saturation Oxygen saturation in Arterial blood by Pulse oximetry Systolic blood pressure Diastolic blood pressure Provider Name and Address Organization Details Last Updated DateTime 4 10763 g 80 /min 18 /min 98 [degF] 95 % 95 % 111 mm[Hg] 60 mm[Hg] Dori Pena NP [address] [facility] [address], [place], [address], [facility] 4 11:40:36 Date Recorded Body weight Heart rate Respiratory rate Body temperature Oxygen saturation Oxygen saturation in Arterial blood by Pulse oximetry Systolic blood pressure Diastolic blood pressure Provider Name and Address Organization Details Last Updated DateTime 4 64648 g 74 /min 18 /min 98.4 [degF] 95 % 95 % 124 mm[Hg] 68 mm[Hg] Dori Pena NP [address] [facility], [facility] [address], [place], [address], [facility] 4 13:12:09 Social History Question Answer Notes LastModified by Organizat ion Details LastModified Time Tobacco Smoking Status Never Smoker Dori Pena NP [address] [facility], [facility] [address], [place], [address], [employer] 09/17/2023 15:39:38 Do You Have An Advance [...] (RSV) vaccine, unspecified 4 completed Radha batista, [employer] 09/19/2023 16:11:12 Tdap 4 completed Radha Stoll null, [facility] 09/19/2023 16:11:26 Td(adult) unspecified formulation 3 completed Radha Jerman null, [facility] 09/19/2023 16:11:43 Td(adult) unspecified formulation 3 completed Radha Jerman null, [facility] 09/19/2023 16:11:51 Pneumococcal conjugate PCV 13 6 completed Radha Jerman null, [facility] 09/19/2023 16:12:53 Pneumococcal conjugate PCV20, polysaccharide [id number] conjugate, adjuvant, PF 4 completed Radha Stoll null, [facility] 09/19/2023 16:13:07 pneumococcal polysaccharide PPV23 1 completed Radha Stoll null, [facility] 09/19/2023 16:13:22 pneumococcal polysaccharide PPV23 4 completed Radha Jerman null, [facility] 09/19/2023 16:13:31 influenza, unspecified formulation 2 completed [facility] 16:13:47 influenza, unspecified formulation 3 completed Radha Jerman null, [facility] 09/19/2023 16:13:55 MMR 8 completed Radha Jerman [facility], [facility] 09/19/2023 16:14:21 SARS-COV-2 (COVID-19) vaccine, UNSPECIFIED 1 completed Radha Jerman null, [facility] 09/19/2023 16:15:58 SARS-COV-2 (COVID-19) vaccine, UNSPECIFIED 1 completed Radha Jerman null, [facility] 09/19/2023 16:16:13 SARS-COV-2 (COVID-19) vaccine, UNSPECIFIED 1 completed [facility] 16:16:27 SARS-COV-2 (COVID-19) vaccine, UNSPECIFIED 2 completed Radha Stoll [facility] 09/19/2023 16:17:15 SARS-COV-2 (COVID-19) vaccine, UNSPECIFIED 2 completed Radha Stoll [facility] 09/19/2023 16:21:38 zoster, unspecified formulation 5 completed Radha Stoll [facility] 09/19/2023 16:23:04 zoster, unspecified formulation 9 completed Radha [facility] 09/19/2023 16:23:18 zoster, unspecified formulation 9 completed [facility] 09/19/2023 16:25:18 Past Encounters Encounter ID Performer Location Encounter Start Date Encounter Closed Date Diagnosis/Indication Diagnosis SNOMED-CT Code Diagnosis ICD10 Code Diagnosis Note [id number] Dori Pena NP [address] [address] 09/17/2023 15:22:09 09/23/2023 14:50:24 Closed flail chest 887960871 S22.5XXD with multiple rib fractures and clavicular [...] If stable no further workup needed. Asthenia 96045496 R53.1 with notable weakness due to injuryPT OT eval and treatsuppo rtive caremonito r Type 1 frank betes mellitus 79967400 E10.9 tresiba 30 unit sc qhsinsulin 2-14 SSI sc qidhsmonit or BS and adjust as needed Hypertensive disorder 38 807648 I10 not on meds for thisamlodi pine 10 mg po dailylosar zaragoza 100 mg po dailymonit or bp/vitals 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 431752 E06.3 levothyrox ine 112 mcg dailymonit or tsh as needed Gastroesop hageal reflux disease 323185725 K21.9 esomeprazo le 40 mg o daily Obesity 926005590 E66.9 boxing promoter to consultsup portive careportio n controlmon itor weight Mixed anxi ety and depressive disorder 028426985 F41.8 aripiprazo le 20 mg dailyvenla faxine 150 mg po dailyprazo sin 6 mg po qhsmelaton in 3 mg po qhshydroxy zine 10 mg po q 8 hours prn anxietyclo nazepam 0.5 mg po q 8 hours prn anxietycar vedilol 6.25 mg po bidmonitor Rheumatoid arthritis 698 94124 M06.9 enbrel 50 mg sc q 7dayscalci um citrate 400 mg po bidmonitor for reliefsee pain management above with flail chest Irritable bowel syndrome 84157572 K58.9 ? IBSlinzess 290 mcg q ammonitor Deficiency anemias 08504 3007 D53.9 folic acidvit h60vyjxvsh Coronary arteriosclerosis 72891702 I25.10 hx of MIatorvast atin 20 mg po dailyclopi dogrel 75 mg po q amsee above htn medsmonito r Recurrent falls 55598832 2 R29.6 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 to help her and balance issuesrepo rts more than 5 falls/year supportive caremonito r [id number] JESSICA HINDS NP [place] [address] [place] [address] 09/18/2023 13:29:08 09/23/2023 15:13:15 Closed flail chest 105379306 S22.5XXD with multiple rib fractures and clavicular [...] If stable no further workup needed. Asthenia 36677211 R53.1 with notable weakness due to injuryPT OT eval and treatsuppo rtive caremonito r Type 1 frank betes mellitus 40129912 E10.9 A1C 8.8%Contin eu:tresiba 30 unit sc qhsinsulin 2-14 SSI sc qidmonitor BS and adjust as needed Hypertensive disorder 38 460544 I10 amlodipine 10 mg po dailylosar zaragoza 100 mg po dailycoreg 6.25 mg bidmonitor bp/vitals 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 064725 E06.3 levothyrox ine 112 mcg dailymonit or tsh as needed Gastroesop hageal reflux disease 579881628 K21.9 esomeprazo le 40 mg o daily Deficiency anemias 32507 3007 D53.9 folic acidvit o40kactmpi Obesity 693610226 E66.9 boxing promoter to consultsup portive careportio n controlmon itor weight Mixed anxi ety and depressive disorder 384933799 F41.8 aripiprazo le 20 mg dailyvenla faxine 150 mg po dailyprazo sin 6 mg po qhsmelaton in 3 mg po qhshydroxy zine 10 mg po q 8 hours prn anxietyclo nazepam 0.5 mg po q 8 hours prn anxietymon itor Rheumatoid arthritis 698 05567 M06.9 enbrel 50 mg sc q 7dayscalci um citrate 400 mg po bidmonitor for reliefsee pain management above with flail chest Irritable bowel syndrome 38605612 K58.9 ? IBSlinzess 290 mcg q ammonitor Coronary arteriosclerosis 08248350 I25.10 hx of MIatorvast atin 20 mg po dailyclopi dogrel 75 mg po q amsee above htn medsmonito r Recurrent falls 50299990 2 R29.6 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 to help her and balance issuesrepo rts more than 5 falls/year supportive caremonito r [id number] Dori Pena NP [facility] [address] [address] 09/22/2023 14:27:57 09/29/2023 19:16:34 Closed flail chest [id number] S22.5XXD with multiple rib fractures and clavicular [...] If stable no further workup needed. Asthenia 87025388 R53.1 with notable weakness due to injuryPT OT eval and treatsuppo rtive caremonito r Type 1 frank betes mellitus 46855751 E10.9 BS 81-252 qbexkqT5U 8.8%contin ue:tresiba 30 unit sc qhsinsulin 2-14 SSI sc qidmonitor BS and adjust as needed Hypertensive disorder 38 322829 I10 improving lately, boderline highcontam lodipine 10 mg po dailylosar zaragoza 100 mg po dailycoreg 6.25 mg bidmonitor bp/vitals 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 898517 E06.3 contlevoth yroxine 112 mcg dailymonit or tsh as needed Gastroesop hageal reflux disease 117845491 K21.9 esomeprazo le 40 mg o daily Deficiency anemias 45470 3007 D53.9 folic acidvit g52pidvvqb Obesity 611817355 E66.9 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 IBSlinzess 290 mcg q ammonitor Coronary arteriosclerosis 52386738 I25.10 hx of MIatorvast atin 20 mg po dailyclopi dogrel 75 mg po q amsee above htn medsmonito r Recurrent falls 53946964 2 R29.6 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 to help her and balance issuesrepo rts more than 5 falls/year supportive caremonito r Acute cystitis 46588421 N30.00 reports dysuria and occassiona l incontinen ce latelyurin e culture returned showing > 100,000 klebsiella pneumo ssp and started on ceftriaxon e 1gram IM and cefpodoxim e 200 mg po bid x 7 days with probiotic by on provider over the weekend.mo nitor [id number] Jonel Alamo MD [address] [address] 09/23/2023 11:01:43 09/29/2023 19:25:59 Closed fracture of multiple left ribs 5400049910 1480697 S22.42XG see HPIleft rib fxs 2-6 with concern for flail chest , with clavicular fxeval by surgery with no interventi on indicatedm onitor respirator y statusutil ize incentive spirometer monitor for pain controlupd ate surgery with concerns Asthenia 92857342 R53.1 PT OT eval and treatmonit or need for increased support in community Type 1 frank betes mellitus 13816176 E10.9 tresiba 30 units qdSS insulinmon itor glucose and need to titrate Hypertensive disorder 38 092486 I10 norvasc 10 mg qdcoreg 6.25 mg bidlosarta n 100 mg qdcurrentl y elevatedmo nitor need for increased control 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 160519 E06.3 hx of added to PMHmaintai priscilla onsynthroi d 112 mcg qdmonitor tsh prn Gastroesop hageal reflux disease 979617286 K21.9 nexium 40 mg qd continuedm onitor for effect Obesity 879816310 E66.09 dietary eval in patient with baseline DM Mixed anxi ety and depressive disorder 735943495 F41.8 carrying dx requiring multiple medication swill continue out patient medication s includinga bility and ativanmoni tor moodpsych eval prn Rheumatoid arthritis 698 02744 M06.9 remains onenbrel 50 mg q friday Irritable bowel syndrome 27395360 K58.9 ? IBSlinzess 290 mcg q ammonitor Coronary arteriosclerosis 11008892 I25.10 hx of MIatorvast atin 20 mg po dailyclopi dogrel 75 mg po q amsee above htn medsmonito r Recurrent falls 63874143 2 R29.6 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 to help her and balance issuesrepo rts more than 5 falls/year supportive caremonito r Solitary n odule of lung 917554303 R91.1 question right 4 mm upper lobe nodulecons ider repeat scan in 6-12 months Primary insomnia 0650635 F51.01 continue melatoninm onitor need to titrate Abnormal weight loss 267 248959 R63.4 weight dropped > 12 lbs in a few days from admitappea rs to be error in initial intake weightwill monitor Acute cystitis 41635419 N30.00 now on cefpodoxim e to complete coursemoni tor for recurrent disease [id number] Dori Pena NP [facility] [address] [place] [address] 09/24/2023 09:21:20 09/29/2023 19:39:42 Closed fracture of multiple left ribs 8336643043 9247448 S22.42XG with multiple rib fractures and clavicular [...] in am off pmadjust as needed. Asthenia 59537113 R53.1 PT OT eval and treatmonit or need for increased support in community Type 1 frank betes mellitus 14439410 E10.9 BS controlled conttresib a 30 units qdSS insulinmon itor glucose and need to titrate Hypertensive disorder 38 253394 I10 stable on below regimennor vasc 10 mg qdcoreg 6.25 mg bidlosarta n 100 mg qdcurrentl y elevatedmo nitor need for increased control 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 415430 E06.3 hx of added to PMHmaintai priscilla onsynthroi d 112 mcg qdmonitor tsh prn Gastroesop hageal reflux disease 361473561 K21.9 nexium 40 mg qd continuedm onitor for effect Obesity 765686864 E66.09 dietary eval in patient with baseline DM Rheumatoid arthritis 698 20427 M06.9 remains onenbrel 50 mg q friday Irritable bowel syndrome 93592648 K58.9 ? IBSlinzess 290 mcg q ammonitor Coronary arteriosclerosis 31650307 I25.10 hx of MIatorvast atin 20 mg po dailyclopi dogrel 75 mg po q amsee above htn medsmonito r Recurrent falls 52516977 2 R29.6 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 to help her and balance issuesrepo rts more than 5 falls/year supportive caremonito r Primary insomnia 3383557 F51.01 continueme latoninmon itor need to titrate Abnormal weight loss 267 760421 R63.4 weight dropped > 12 lbs in a few days from admitappea rs to be error in initial intake weight6/ reweigh pt todaywill monitor Acute cystitis 10556696 N30.00 now on cefpodoxim e to complete courseaysm ptomaticmo nitor for recurrent disease [id number] Dori Pena, AAKASH [facility] [address] [place] [address] 09/29/2023 10:39:23 10/03/2023 11:24:38 Closed fracture of multiple left ribs 8392055844 8348103 S22.42XG with multiple rib fractures and clavicular [...] to left shoulderad just as needed. Asthenia 98655592 R53.1 PT OT eval and treatmonit or need for increased support in community Type 1 frank betes mellitus 30898907 E10.9 BS controlled conttresib a 30 units qdSS insulinmon itor glucose and need to titrate Hypertensive disorder 38 580899 I10 stable on below regimen with slightly high bp likley related to pain, monitorcon tnorvasc 10 mg qdcoreg 6.25 mg bidlosarta n 100 mg qdcurrentl y elevatedmo nitor need for increased control 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 485955 E06.3 hx of added to PMHmaintai priscilla onsynthroi d 112 mcg qdmonitor tsh prn Gastroesop hageal reflux disease 060892056 K21.9 contnexium 40 mg qdmonitor for effect Obesity 720179986 E66.09 dietary evalbaseli ne DMweight today please Rheumatoid arthritis 698 06152 M06.9 remains onenbrel 50 mg q friday Irritable bowel syndrome 74760739 K58.9 ? IBSlinzess 290 mcg q ammonitor Coronary arteriosclerosis 37465154 I25.10 hx of MIatorvast atin 20 mg po dailyclopi dogrel 75 mg po q amsee above htn medsmonito r Recurrent falls 59026819 2 R29.6 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 to help her and balance issuesrepo rts more than 5 falls/year supportive caremonito r Primary insomnia 6591916 F51.01 continueme latoninmon itor need to titrate Abnormal weight loss 267 763413 R63.4 weight dropped > 12 lbs in a few days from admitappea rs to be error in initial intake weight6/10 reweigh pt todaywill monitor Acute cystitis 35913021 N30.00 resolved cefpodoxim e to complete courseaysm ptomaticmo nitor for recurrent disease Mixed anxi ety and depressive disorder 944962495 F41.8 contaripip razole 20 mg dailyvenla faxine 150 mg po dailyprazo sin 6 mg po qhsmelaton in 3 mg po qhshydroxy zine 10 mg po q 8 hours prn anxiety6/1 0 renew clonazepam 0.5 mg po q 8 hours prn anxietymon itor [id number] [facility] [address] 10/02/2023 13:28:32 10/07/2023 10:08:18 Hypertensive disorder 08002630 I10 stable on below regimen as it comes down to 120s systolic post medication contnorvas c 10 mg qdcoreg 6.25 mg bidlosarta n 100 mg qdmonitor need for increased control Closed fra cture of multiple left ribs 3227481588 6521852 S22.42XG with left rib fxs 2-6 with [...] OT eval and txadjust as needed. Asthenia 06016044 R53.1 PT OT eval and treatmonit or need for increased support in community Type 1 frank betes mellitus 69947340 E10.9 BS controlled glucernaco nttresiba 30 units qdSS insulinmon itor glucose and need to titrate Gastroesop hageal reflux disease 709743413 K21.9 contnexium 40 mg qdmonitor for effect Rheumatoid arthritis 698 42531 M06.9 remains onenbrel 50 mg q friday Irritable bowel syndrome 87427812 K58.9 ? IBSlinzess 290 mcg q ammonitor Coronary arteriosclerosis 03316533 I25.10 hx of MIcoreg 6.25 mg po bidatorvas tatin 20 mg po dailyclopi dogrel 75 mg po q amsee above htn medsmonito r Recurrent falls 84178994 2 R29.6 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 to help her and balance issuesrepo rts more than 5 falls/year supportive care and therapy here for balance, strengthen ing, gait, mobility, endurancem onitor Abnormal weight loss 267 082399 R63.4 weight dropped > 12 lbs in a few days from admitappea rs to be error in initial intake weight09/28 reweigh pt today10/01 reweight pt today, no weight since 09/21will monitor Mixed anxi ety and depressive disorder 341158930 F41.8 contaripip razole 20 mg dailyvenla faxine 150 mg po dailyprazo sin 6 mg po qhsmelaton in 3 mg po qhshydroxy zine 10 mg po q 8 hours prn anxiety6/ 0 renew clonazepam 0.5 mg po q 8 hours prn anxiety x 14 days10/01 cont as abovemonit or [id number] Dori Pena NP [facility] [address] [facility] [place] [address] 10/06/2023 12:02:36 10/09/2023 09:34:42 Closed fracture of multiple left ribs 7754413523 2401775 S22.42XG with left rib fxs 2-6 with [...] txadjust as needed. Abnormal weight loss 267 931420 R63.4 weight dropped > 12 lbs in a few days from admitappea rs to be error in initial intake weight10/04 160 lbs which is same as 09/22/23will monitor Hypertensive disorder 38 313950 I10 stable on below regimen as it comes down to 120s systolic post medication contnorvas c 10 mg qdcoreg 6.25 mg bidlosarta n 100 mg qdmonitor need for increased control Asthenia 20968299 R53.1 PT OT eval and treatmonit or need for increased support in community Type 1 frank betes mellitus 67925348 E10.9 pt having syrup and gingerale at [...] and need to titrate Rheumatoid arthritis 698 44618 M06.9 remains onenbrel 50 mg q friday Irritable bowel syndrome 27589649 K58.9 with constipati on today, states many days10/05 mon given today, will do supp if no bm by 4 pm10/05 start senna 8.6 mg po daily? IBSlinzess 290 mcg q ammonitor Coronary arteriosclerosis 39006744 I25.10 hx of MIcoreg 6.25 mg po bidatorvas tatin 20 mg po dailyclopi dogrel 75 mg po q amsee above htn medsmonito r Mixed anxi ety and depressive disorder [id number] F41.8 contaripip razole 20 mg dailyvenla faxine 150 mg po dailyprazo sin 6 mg po qhsmelaton in 3 mg po qhshydroxy zine 10 mg po q 8 hours prn anxiety09/19 0 renew clonazepam 0.5 mg po q 8 hours prn anxiety x 14 days10/01 cont as above10/05 stable today with above planmonito r [id number] [facility] [address] 10/08/2023 11:40:06 10/15/2023 15:50:32 Type 1 diabetes mellitus 35107438 E10.9 pt having syrup and gingerale at [...] and need to titrate Irritable bowel syndrome 03186475 K58.9 with constipati on resolved with mom on 7 mon given today10/05 start senna 8.6 mg po daily? IBSlinzess 290 mcg q am10/07 having bm regularly nowmonitor Closed fra cture of multiple left ribs [id number] 7730961 S22.42XG with left rib fxs 2-6 with [...] txadjust as needed. Abnormal weight loss 267 058982 R63.4 weight dropped > 12 lbs in a few days from admitappea rs to be error in initial intake weight10/04 160 lbs which is same as 09/22/23, ? incorrect admit weight but seems [facility] Hypertensive disorder 38 009510 I10 stable on below regimen as it comes down to 120s systolic post medication contnorvas c 10 mg qdcoreg 6.25 mg bidlosarta n 100 mg qdmonitor need for increased control Asthenia 45142310 R53.1 PT OT eval and treatmonit or need for increased support in community Rheumatoid arthritis 698 27243 M06.9 remains onenbrel 50 mg q friday Coronary arteriosclerosis 75245438 I25.10 hx of MIcoreg 6.25 mg po bidatorvas tatin 20 mg po dailyclopi dogrel 75 mg po q amsee above htn medsmonito r Mixed anxi ety and depressive disorder 259500433 F41.8 contaripip razole 20 mg dailyvenla faxine 150 mg po dailyprazo sin 6 mg po qhsmelaton in 3 mg po qhshydroxy zine 10 mg po q 8 hours prn anxiety/ 0 renew clonazepam 0.5 mg po q 8 hours prn anxiety x 14 days10/01 cont as above10/05 stable today with above plan10/07 stable today with above planmonito r Hyperkalemia 69875300 E8 7.5 k of 5.7 on give kayexalate 15 gm today10/08 bmp in ammonitor for additional e lyte abbormalit ies [id number] Dori Pena NP [address] [phone] 10/09/2023 13:08:06 10/15/2023 16:27:22 Closed fracture of multiple left ribs [id number] 7785276 S22.42XG resolving with left rib fxs 2-6 [...] prnadjust as needed outpt with pcp Hyperkalemia 51695172 E8 7.5 k of 5.7 on give kayexalate 15 gm on 10/07monito r for additional e lyte abnormalit ies outpt with pcp Type 1 frank betes mellitus 08195664 E10.9 BS slightly high while at rehab with eating sugary foods/drin ksPlan: diet sodas and diet syrup and less sugary choicescon tglucernat resiba 30 units qdSS insulin with meals as per home schedmonit or glucose and need to titrate outpt with pcp outpt Irritable bowel syndrome 50864731 K58.9 with constipati on resolvedse nna 8.6 mg po daily (started at rehab)? IBSlinzess 290 mcg q ammonitor with pcp outpt Abnormal weight loss 267 064883 R63.4 weight dropped > 12 lbs in a few days from admitappea rs to be error in initial intake weight10/04 160 lbs which is same as 09/22/23, ? incorrect admit weight but seems stable nowmonitor oupt with pcp Hypertensive disorder 38 207061 I10 stable on below regimen as it comes down to 120s systolic post medication contnorvas c 10 mg qdcoreg 6.25 mg bidlosarta n 100 mg qdmonitor need for increased control outpt with pcp Asthenia 40138332 R53.1 PT OT eval and treat outpt prnmonitor need for increased support in community with pcp Rheumatoid arthritis 698 78563 M06.9 remains onenbrel 50 mg q fridaymoni tor outpt with pcp Coronary arteriosclerosis 69402934 I25.10 hx of MIcoreg 6.25 mg po bidatorvas tatin 20 mg po dailyclopi dogrel 75 mg po q amsee above htn medsmonito r outpt wtih pcp 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 contaripip razole 20 mg dailyvenla faxine 150 mg po dailyprazo sin 6 mg po qhsmelaton in 3 mg po qhshydroxy zine 10 mg po q 8 hours prn anxietyclo nazepam 0.5 mg po q 8 hours prn anxietymon itor outpt with pcp Gastroesop hageal reflux disease 485612049 K21.9 contnexium 40 mg qdmonitor for effect outpt with pcp Recurrent falls 33439572 2 R29.6 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 to 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 her and balance issuesrepo rts more than 5 falls/year supportive care and therapy here for balance, strengthen ing, gait, mobility, endurance outpt rpnmonitor outpt with pcp 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 553830 E06.3 hx of added to PMHmaintai priscilla onsynthroi d 112 mcg qdmonitor tsh prn with pcp Obesity 794024683 E66.09 dietary evalbaseli ne DMweight to be monitored with pcp outpt Primary insomnia 2808419 F51.01 continueme latoninmon itor need to titrate outpt Acute cystitis 27083843 N30.00 resolved cefpodoxim e to complete courseaysm ptomaticmo nitor for recurrent disease outpt with pcp Health Concerns Section Related Observation LastModified by Organization Detai ls LastModified Time None Recorded Concern Status LastModified by Organization Details LastModified Time None Recorded Advance Directives Directive N: Payers Encounter Date Sequence Insurance Name Policy Number Policy Patten Covered Member ID Patten Member ID Guarantor Name 09/29/2023 1 [facility] - DOS ON OR AFTER 2022 - MEDIC[place]V ANTAGE - PPO) Brandie Luevano [id number] Brandie Luevano 10/02/2023 1 [facility] - DOS ON OR AFTER 2022 - [place]V [place] - PPO) Brandie Luevano [id number] Brandie Luevano 10/06/2023 1 [facility] - DOS ON OR AFTER 2022 - [place]V ANTAGE - PPO) Brandie Tanga [id number] Brandie Luevano 10/08/2023 1 [facility] - DOS ON OR AFTER 2022 - [place]V [place] - [place]PO) Brandie Luevano [id number] Brandie Luevano 10/09/2023 1 [facility] - DOS ON OR AFTER 2022 - [place]V ANTAGE - PPO) Brandie Luevano [id number] Brandie Luevano Notes Date Note Type Note [...] [facility], [address], [place], [address], [place] [email or web address] 09/29/2023 11:09:33 10/02/2023 text/html Pt is seen [...] is sitting up in bed with her SHIRT MARKER visiting. She has her sling in place [...] [address] [facility], [address], [place], [address], [facility] [email or web address] 10/02/2023 13:48:50 10/06/2023 text/html Pt is seen for a n acute rounding visit. Brandie is working here at [facility] and is feeling good and more mobile lately with left sling in place. She continues with therapy and making gains. She was treated for a UTI when she first came to the [facility] and denies any urinary symptoms. 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 While at [facility]:She was treated for a UTI when she first came to the [facility] and denies any urinary symptoms. 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 While at [facility]:She was treated for a UTI when she first came to the [facility] and denies any urinary symptoms. 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
--- OUTSIDE RECORDS SUMMARY | 2024-07-26 10:01 | XMS_ITS | Clinical Summary ---
Author Organization 175 [facility] Address 175 [place] [address] Phone Care Team Providers Care Concrete Products Dispatcher Name Role Phone Pascual Darnell MD Primary [...] Upcoming Encounters Date Type Department Care Team ([facility] Contact Info) Description 09/02/2024 10:30 AM EDT Consult Orthopedic Surgery [place] [address] [phone] Luciano Smith, DPM [address] [address] Health Maintenance Due Date Last Done Comments [...] Influencers of Health Screening 11/21/2023 COVID-19 Vaccine ( - 2023-2 5 season) 2023 Diabetes: Annual Urine Albumin-Creatinine Ratio (uACR) 06/18/2024 Diabetes: Blood Sugar Contro l Test (HGBA1C) 06/18/2024 Influenza Vaccine (Season Ended) 2024 RSV Immunization Adult Patie nts (1 - 1-dose 75+ series) 2025 HIB [...] ID:[id number] Group ID:[id number] Type:Not on file Address: AMIE [facility] [place] [address] Care Teams Concrete Products Dispatcher Relationship Specialty Start Date End Date Pascual Darnell MD [address] [place] [address] PCP - General Internal Medicine 06/18/24
--- OUTSIDE RECORDS SUMMARY | 2024-07-26 10:01 | XMS_ITS | Encounter Summary ---
Author Organization [employer] Address 75 [facility] 7t [place] [address] Care Team Providers Care Command Center Officer Name Role Phone Pascual Daly MD Primary Care Provide r Fani Heck PharmD Unavailable [phone] Reason for Visit * Reason Comments Med Refill Encounter Details Date Type Department Care Team (Late st Contact Info) Description 07/20/2023 Refill [facility] [address] [place] [address] Titi Gray FNP Major depressive disorder with [...] Office Visit [facility] [address] [place] [address] Pascual Daly MD 230 [place] [address] 08/16/2024 11:00 AM EDT Medication Management [facility] [address] [place] [address] Dasia Waters PharmD 230 [place] [address] 10/28/2024 10:30 AM EDT Clinical Support [facility] [address] [place] [address] Amanda Fernández, AALIYAH 505 [place] [address] documented as of this encounter Goals Goal [...] documented as of this encounter Care Teams Command Center Officer Relationship Specialty Start Date End Date Pascual Daly MD [address] [place] [address] PCP - General Internal Medicine 02/22/14 Fani Heck PharmD 230 [place] [address] Pharmacist Internal Medicine 12/16/22 documented as of this encounter
--- OUTSIDE RECORDS SUMMARY | 2024-07-26 10:01 | XMS_ITS | Encounter Summary ---
Author Organization [employer] Address 75 [facility] 7t [place] [address] Care Team Providers Care Oncology Patient Navigator Name Role Phone Pascual Daly MD Primary Care Provide r Fani Heck PharmD Unavailable [phone] Reason for Visit * Reason Comments Med Refill Encounter Details Date Type Department Care Team (Late st Contact Info) Description 09/26/2023 Refill [facility] 230 [place] [address] Pascual Daly MD 230 [place], [place] [phone] Social History Tobacco Use Types Packs/Day Years [...] Description 08/03/2024 10:00 AM EDT Office Visit [facility] [address] [place] [address] Pascual Daly MD 230 [place] [address] 08/16/2024 11:00 AM EDT Medication Management [facility] [address] [place] [address] Dasia Waters PharmD 230 [place] [address] 10/28/2024 10:30 AM EDT Clinical Support [facility] [address] [place], [place] [phone] Amanda Fernández, RN 505 [place] [address] documented as of this encounter Goals Goal [...] documented as of this encounter Care Teams Oncology Patient Navigator Relationship Specialty Start Date End Date Pascual Daly MD 230 [place] [address] PCP - General Internal Medicine 02/22/14 Fani Heck, KristiD [address] [place] [address] Pharmacist Internal Medicine 12/16/22 documented as of this encounter
--- OUTSIDE RECORDS SUMMARY | 2024-07-26 10:01 | XMS_ITS | Encounter Summary ---
Author Organization [employer] Address 75 [facility] 7t [place] [address] Care Team Providers Care Billboard Erector Helper Name Role Phone Pascual Daly MD Primary Care Provide r Fani Heck PharmD Unavailable [phone] Encounter Details Date Type Department Care Team ([facility] st Contact Info) Description 09/25/2023 Telephone [facility]INE [address] [place] [address] Pascual Daly MD [address] [place] [address] Social History Tobacco Use Types Packs/Day Years [...] Description 08/03/2024 10:00 AM EDT Office Visit [facility] [address] [place] [address] Pascual Daly MD 230 [place] [address] 08/16/2024 11:00 AM EDT Medication Management [facility] [address] [place] [address] Dasia Waters, KristiD [address] [place] [address] 10/28/2024 10:30 AM EDT Clinical Support [facility] 505 [place] [address] Amanda Fernández, RN 505 [place] [address] documented as of this encounter Goals Goal Patient Goal Type Associated Problems Recent Progress Patient-Stated? Author Blood Pressure < 140/90 Blood Pressure 133/70( 025 11:28 AM EST) No Fani Heck, PharmD documented as of this encounter Visit Diagnoses Diagnosis Type 2 diabetes mellitus without complication, with long-term current use of insulin ([facility]) documented in this encounter Additional Health Concerns Assessment Noted Time PHQ-9 Depression Total Score: 11 06/10/ 024 10:24 AM EST documented as of this encounter Care Teams Billboard Erector Helper Relationship Specialty Start Date End Date Pascual Daly MD [address] [place] [address] PCP - General Internal Medicine 02/22/14 Fani Heck PharmD [address] [place] [address] Pharmacist Internal Medicine 12/16/22 documented as of this encounter
--- OUTSIDE RECORDS SUMMARY | 2024-07-26 10:02 | XMS_ITS | Encounter Summary ---
Author Organization [employer] Address 75 [facility] 7t [place] [address] Care Team Providers Care Financial Market Dealer Name Role Phone Pascual Daly MD Primary Care Provide r Fani Heck PharmD Unavailable [phone] Reason for Visit * Reason Comments Med Refill Encounter Details Date Type Department Care Team (Late st Contact Info) Description 10/21/2023 Refill [facility] 230 [place] [address] Titi Gray FNP Major depressive disorder with [...] Visit [facility] [address] [place] [address] Pascual Daly MD 230 [place] [address] 08/16/2024 11:00 AM EDT Medication Management [facility] [address] [place] [address] Dasia Waters PharmD 230 [place] [address] 10/28/2024 10:30 AM EDT Clinical Support [facility] 505 [place] [address] Amanda Fernández, AALIYAH 505 [place] [address] documented as of this encounter Goals Goal [...] documented as of this encounter Care Teams Financial Market Dealer Relationship Specialty Start Date End Date Pascual Daly MD 230 [place] [address] PCP - General Internal Medicine 02/22/14 Fani Heck PharmD 230 [place] [address] Pharmacist Internal Medicine 12/16/22 documented as of this encounter
--- OUTSIDE RECORDS SUMMARY | 2024-07-26 10:02 | XMS_ITS | Encounter Summary ---
Author Organization [employer] Address 75 [facility] 7t [place] [address] Care Team Providers Care Chief Of Internal Medicine Name Role Phone Pascual Daly MD Primary Care Provide r Fani Heck PharmD Unavailable [phone] Encounter Details Date Type Department Care Team ([facility] Contact Info) Description 05/29/2022 Abstract [facility] MEDICINE 230 [place] [address] Pascual Daly MD 230 [place] [address] Social History Tobacco Use Types Packs/Day Years [...] Department Care Team (Late Contact Info) Description 08/03/2024 10:00 AM EDT Office Visit [facility] [address] [place] [address] Pascual Daly MD 230 [facility] [place] [address] 08/16/2024 11:00 AM EDT Medication Management [facility] [address] [place] [address] Dasia Waters PharmD 230 [facility] [place] [address] 10/28/2024 10:30 AM EDT Clinical Support [facility] 505 [place], [place] [phone] Amanda Fernández, AALIYAH 505 [place], [place] documented as of this encounter Goals Goal Patient Goal Type Associated Problems Recent Progress Patient-Stated? Author Blood Pressure < 140/90 Blood Pressure 133/70( 025 11:28 AM EST) No Fani Heck PharmD documented as of this encounter Procedures Procedure Name Priority Date/Time Associated Diagnosis Comments MAMMOGRAPHY Routine 05/23/2022 documented in this encounter Results * Mammography (05/23/2022) Mammogram perform Anatomical Region Laterality Modality Other Historical Provider HEALTH MAINTENANCE Final Result documented in this encounter Visit Diagnoses Not on filedocumented in this encounter Additional Health Concerns Assessment Noted Time PHQ-9 Depression Total Score: 9 04/25/19 23 11:31 AM EST documented as of this encounter Care Teams Chief Of Internal Medicine Relationship Specialty Start Date End Date Pascual Daly MD [place] PCP - General Internal Medicine 02/22/14 Fani Heck PharmD [facility] [place] [phone] Pharmacist Internal Medicine 12/16/22 documented as of this encounter
--- OUTSIDE RECORDS SUMMARY | 2024-07-26 10:02 | XMS_ITS ---
Author Organization [facility] Address [address] [place] [address] Care Team Providers Care Activities Officer Name Role Phone Adolph Terry MD, Pascual Primary Care Provide r Unavailable Cortes Castillo Jr Unavailable Zeb Tang Unavailable Unavailable Allergies Allergen (clinical [...] Problem Status W/U Status Risk Notes Problem [id number] Colon cancer screening (Z12.11) Active confirmed Vital Signs Temperature 97.9 degrees Fahrenheit 11/24/19 24 Blood pressure systolic 000 mm Hg 11/24/19 24 Blood pressure diastolic 00 mm Hg 024 Height 59 in 11/24/2023 Weight 155 lb 4 oz lbs 11/24/2023 BMI 31.35 kg/m2 11/24/2023 Encounters Encounter Location Date Provider Diagnosis [facility] [address] [place] [address] 11/24/2023 Cortes Castillo Jr Gastroesophageal reflux disease [...] 09:20:00 AM, [address], [address], [place], [address], Progress Notes * EVELYN WILLIS:[birth year] (73 yo F)Acc No.[id number]:11/24/2023 Progress Notes Patient:?ROSANNE WILLIS Provider:?Cortes Castillo MD :1950???Age:73 Y???Sex:Female D ate:11/24/2023 Address:[address] [place] [address] Pcp:Pascual stack MD Subjective: * Chief Complaints: [...] MD Date:?0 11/24/2023 Generated for Suzanne phan/Hayden/eTransmitting on:?07/26/2024 10:02 AM EDT History and Physical Notes * HPI [...]
--- OUTSIDE RECORDS SUMMARY | 2024-07-26 10:02 | XMS_ITS | Encounter Summary ---
Author Organization [email or web address] Address 75 [facility] 7t [place] [address] Care Team Providers Care Rn Med Surg Name Role Phone Pascual Daly MD Primary Care Provide r Fani Heck PharmD Unavailable [phone] Reason for Visit * Reason Onset Date Comments Appointment Request 09/03/2022 Encounter Details Date Type Department Care Team ([facility] st Contact Info) Description 09/03/2022 Telephone [facility] MEDICINE 230 [place] [address] Pascual Daly MD 230 [place], [place] [phone] Appointment Request Social History Tobacco Use Types [...] Description 08/03/2024 10:00 AM EDT Office Visit [facility] MED[facility]INE [address] [place] [address] Pascual Daly MD [address] [place] [address] 08/16/2024 11:00 AM EDT Medication Management [facility] 230 [place] [address] Dasia Waters PharmD 230 [place] [address] 10/28/2024 10:30 AM EDT Clinical Support [facility] [address] [place], [place] [phone] Amanda Fernández, RN 505 [place] [address] documented as of this encounter Goals Goal [...] as of this encounter Care Teams Rn Med Surg Relationship Specialty Start Date End Date Pascual Daly MD [address] [place] [address] PCP - General Internal Medicine 02/22/14 Fani Heck PharmD [address] [place] [address] Pharmacist Internal Medicine 12/16/22 documented as of this encounter
--- OUTSIDE RECORDS SUMMARY | 2024-07-26 10:02 | XMS_ITS | Encounter Summary ---
Author Organization [employer] Address 75 [facility] 7t [place] [address] Care Team Providers Care Retail Parts Professional Name Role Phone Pascual Daly MD Primary Care Provide r Fani Heck PharmD Unavailable [phone] Reason for Visit * Reason Comments Med Refill Encounter Details Date Type Department Care Team (Late st Contact Info) Description 10/21/2023 Refill [facility]INE 230 [place] [address] Titi Gray FNP Major depressive disorder with [...] Description 08/03/2024 10:00 AM EDT Office Visit [facility] [address] [place] [address] Pascual Daly MD 230 [place] [address] 08/16/2024 11:00 AM EDT Medication Management [facility] [address] [place] [address] Dasia Waters PharmD 230 [place] [address] 10/28/2024 10:30 AM EDT Clinical Support [facility] 505 [place] [address] Amanda Fernández, AALIYAH 505 [place] [address] documented as of this encounter Goals Goal [...] as of this encounter Care Teams Retail Parts Professional Relationship Specialty Start Date End Date Pascual Daly MD [address] [place] [address] PCP - General Internal Medicine 02/22/14 Fani Heck PharmD [address] [place] [address] Pharmacist Internal Medicine 12/16/22 documented as of this encounter
--- OUTSIDE RECORDS SUMMARY | 2024-07-26 10:02 | XMS_ITS | Encounter Summary ---
Author Organization [employer] Address 75 [facility] 7t [place] [address] Care Team Providers Care Senior Visual Designer Name Role Phone Pascual Daly MD Primary Care Provide r Fani Heck PharmD Unavailable [phone] Reason for Visit * Reason Comments Med Refill Encounter Details Date Type Department Care Team (Late Contact Info) Description 10/02/2022 Refill [facility] MED[facility]INE [address] [place] [address] Titi Gray FNP Major depressive disorder with [...] Description 08/03/2024 10:00 AM EDT Office Visit [facility] MED[facility]INE [address] [place], [place] [phone] Pascual Daly MD 230 [place], [place] [phone] 08/16/2024 11:00 AM EDT Medication Management [facility] MEDICINE 230 [place] [address] Dasia Waters, Woody 230 [place], [place] 10/28/2024 10:30 AM EDT Clinical Support [facility]S [address] [place] [address] Amanda Fernández, RN 505 [place] [address] documented as of this encounter Goals Goal [...] as of this encounter Care Teams Senior Visual Designer Relationship Specialty Start Date End Date Pascual Daly MD [address] [place] [address] PCP - General Internal Medicine 02/22/14 Fani Heck PharmD [address] [place] [address] Pharmacist Internal Medicine 12/16/22 documented as of this encounter
--- OUTSIDE RECORDS SUMMARY | 2024-07-26 10:02 | XMS_ITS | Encounter Summary ---
Author Organization [email or web address] Address [address] [place] [address] 7t [place] [address] Care Team Providers Care Fire Manager Name Role Phone Pascual Daly MD Primary Care Provide r Fani Heck PharmD Unavailable [phone] Reason for Referral * Consultation (Routine) - Authorized Specialty Diagnoses / Procedures Referred By Contac t Referred To Contact Pharmacy Diagnoses Type 2 diabetes mellitus without complication, with long-term current use of insulin (CMS/HCC) Pascual Daly MD [address] [place] [address] Phone: tel: fax: Referral ID Status Reason Start Date Expiration Date Visits Requested Visits Authorized [id number] Authorized Consult and Treat 07/21/2024 07/21/2025 6 6 Encounter Details Date Type Department Care Team (Late st Contact Info) Description 07/21/2024 Orders Only [facility] [address] [place], [place] [phone] Pascual Daly MD [address] [place], [place] [phone] Type 2 diabetes mellitus without complication, with long-term current use of insulin (CMS/HCC) (Primary Dx) Social History Tobacco Use Types [...] AM EDT Office Visit [facility] [address] [place] [address] Pascual Daly MD [address] [place] [address] 08/16/2024 11:00 AM EDT Medication Management [facility] [address] [place] [address] Dasia Waters, KristiD [address] [place] [address] 10/28/2024 10:30 AM EDT Clinical Support [facility] [address] [place] [address] Amanda Fernández, RN [address] [place], [place] Scheduled Referrals Name Type Priority Associated Diagnoses Orde r Schedule Referral to Pharmacy CDTM Outpatient Referral Routine Type 2 diabetes mellitus without complication, with long-term current use of insulin (CMS/HCC) Ordered: 07/21/2024 documented as of this encounter Goals Goal Patient Goal Type Associated Problems Recent Progress Patient-Stated? Author Blood Pressure < 140/90 Blood Pressure 133/70( 025 11:28 AM EST) No Fani Heck, Woody documented as of this encounter Visit Diagnoses Diagnosis Type 2 diabetes mellitus without complication, with long-term current use of insulin (CMS/[facility])- Primary documented in this encounter Additional Health Concerns Assessment Noted Time PHQ-9 Depression Total Score: 9 01/29/20 24 11:00 AM EDT documented as of this encounter Care Teams Fire Manager Relationship Specialty Start Date End Date Pascual Daly MD [address] [place] [address] PCP - General Internal Medicine 02/22/14 Fani Heck, KristiD [address] [place] [address] Pharmacist Internal Medicine 12/16/22 documented as of this encounter
--- OUTSIDE RECORDS SUMMARY | 2024-07-26 10:02 | XMS_ITS | Encounter Summary ---
Author Organization [facility] [employer] Address [address] [facility] 7t [place] [address] Care Team Providers Care Senior Technical Support Engineer Name Role Phone Pascual Daly MD Primary Care Provide r Fani Heck PharmD Unavailable [phone] Reason for Visit * Reason Comments Med Refill Encounter Details Date Type Department Care Team (Late st Contact Info) Description 01/14/2024 Refill [facility] [address] [place] [address] Pascual Daly MD [address] [place] [address] Fibromyalgia Social History Tobacco Use Types Packs/Day [...] Description 08/03/2024 10:00 AM EDT Office Visit [facility] [address] [place] [address] Pascual Daly MD [address] [place] [address] 08/16/2024 11:00 AM EDT Medication Management [facility] [address] [place] [address] Dasia Waters PharmD [address] [place] [address] 10/28/2024 10:30 AM EDT Clinical Support [facility] [address] [place] [address] Amanda Fernández, AALIYAH 505 [place] [address] documented as of this encounter Goals Goal [...] as of this encounter Care Teams Senior Technical Support Engineer Relationship Specialty Start Date End Date Pascual Daly MD [address] [place] [address] PCP - General Internal Medicine 02/22/14 Fani Heck PharmD [address] [place] [address] Pharmacist Internal Medicine 12/16/22 documented as of this encounter
--- OUTSIDE RECORDS SUMMARY | 2024-07-26 10:02 | XMS_ITS | Encounter Summary ---
Author Organization [employer] Address [address] [facility] 7t [place] [address] Care Team Providers Care Tail Board Man Name Role Phone Pascual Daly MD Primary Care Provide r Fani Heck PharmD Unavailable [phone] Reason for Visit * Reason Comments Med Refill Encounter Details Date Type Department Care Team (Late st Contact Info) Description 01/01/2024 Refill [facility] [address] [place] [address] Momo Rizo MD [address] [place] [address] Social History Tobacco Use Types Packs/Day Years [...] Description 08/03/2024 10:00 AM EDT Office Visit [facility] [address] [place] [address] Pascual Daly MD [address] [place] [address] 08/16/2024 11:00 AM EDT Medication Management [facility] [address] [place] [address] Dasia Waters PharmD [address] [place] [address] 10/28/2024 10:30 AM EDT Clinical Support [facility] 505 [place] [address] Amanda Fernández, RN 505 [place] [address] documented as of this encounter Goals Goal [...] documented as of this encounter Care Teams Tail Board Man Relationship Specialty Start Date End Date Pascual Daly MD [address] [place] [address] PCP - General Internal Medicine 02/22/14 Fani Heck PharmD [address] [place] [address] Pharmacist Internal Medicine 12/16/22 documented as of this encounter
--- OUTSIDE RECORDS SUMMARY | 2024-07-26 10:02 | XMS_ITS | Clinical Summary ---
Author Organization [employer] Address [address] [facility] 7t [place] [address] Care Team Providers Care Plastic Jig And Fixture Builder Name Role Phone Pascual Daly MD Primary Care Provide r Fani Heck PharmD Unavailable [phone] Allergies Active Allergy Reactions Criticality Noted Date Comments Celecoxib Nausea Only,Unknown 05/25/2010 Lorazepam Unknown 02/12/2018 Naproxen Unknown 07/03/2022 Tramadol Hives,Unknown 11/02/2012 Zolpidem Anxiety,Unknown Low 01/26/2019 Medications acetaminophen (Tylenol) 500 MG tablet take 1 tablet (500MG) by oral route every 6 hours as needed 020 Active folic acid (Folvite) 1 MG tablet take 1 tablet by oral route every day Active glucose blood (FREESTYLE LITE) test strip USE 1 Each by DIRECTED route 4 times every day 016 Active insulin aspart, with niacinamide, (Fiasp FlexTouch) [...] BY MOUTH FOUR TIMES DAILY AFTER MEALS Active ARIPiprazole (Abilify) 20 MG tablet Take [...] 112 mcg by mouth Once per day. 024 Active venlafaxine XR (Effexor XR) 150 MG 24 hr capsuleIndicati ons:Major depressive disorder with psychotic features (CMS/HCC) Take 1 capsule (150 mg) by mouth in the morning. Do not crush or chew. 90 capsule 1 024 Active Continuous Glucose Sensor (Dexcom G7 Sensor) [facility] DIRECTED Active Actemra ACTPen 162 MG/0.9ML solution [...] MOUTH EVERY EVENING 90 tablet 025 Active gabapentin (Neurontin) 100 MG capsuleIndicati ons:Pain TAKE 1 CAPSULE BY MOUTH TWICE DAILY IN THE MORNING AND AT BEDTIME 180 capsule 1 025 Active oxyCODONE (Roxicodone) 5 MG immediate release tabletIndicatio ns:Fibromyalgia Take 1 tablet (5 mg) by mouth every 12 (twelve) hours if needed for severe pain. Do not start before July 09, 2024. 56 tablet 025 Active oxyCODONE (Roxicodone) 5 MG immediate release tabletIndicatio ns:Fibromyalgia Take 1 tablet (5 mg) by mouth every 12 (twelve) hours if needed for severe pain. 56 tablet 025 2024 Discontinued(R eorder (will not trigger notification to Pharmacy)) Active Problems Problem Noted Date Diagnosed Date Long-term current use of opiate analgesic 2024 Hospital discharge follow-up 10/21/2023 Assessment & Plan (10/21/2023 10:15 AM EDT): [place] [facility] [place] after she presented to [place] emergency room due to left-sided chest discomfort as per patient she was visiting family in [place], on August 26 she turned in high [...] (08/27/2022 10:19 AM EDT): followed by a material specialist. 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 - Follow-up in [facility] in November. Repeat BMP and A1c prior [...] Eye exam done on: 12/04/[address] Hatr referred to retinal specialist Microalbumin checked on: [...] f/u She is under the care of Waffle Machine Operator Dr Sprague, last seen 12/31/2023 On a [...] f/u She is under the care of Waffle Machine Operator Dr Sprague, last seen 10/16/2023 On a [...] f/u She is under the care of Waffle Machine Operator Dr Sprague, has a follow up with [...] f/u She is under the care of Waffle Machine Operator Dr Sprague, has a follow up at [...] was referred to Dr. Manjinder Gonsales at [facility] as her medical insurance recommended this referral. [...] factors. LDL-C is now calculated using the Melquiades-Masood calculation, which is a validated novel method providing better accuracy than the Friedewald equation in the estimation of LDL-C. Melquiades WALLACE et al. TEN. 2013;310(19): 9258-4283 (http://education.Knottykart.SpiralFrog/faq/ZZH495) Chol/HDLC Ratio <5.0 (calc) 4.2 3.7 2.5 [...] Encounters Date Type Department Care Team Description 07/22/2024 10:30 AM EDT Clinical Support [facility] [address] [place] [address] Amanda Fernández RN Fibromyalgia (Primary Dx); Long-term current use of opiate analgesic 07/22/2024 Telephone [facility] [address] [place] [address] Amanda Fernández RN 07/22/2024 Travel 07/21/2024 Orders Only [facility] [address] [place], [place] [address] Pascual Daly MD Type 2 diabetes mellitus without complication, with long-term current use of insulin (CMS/HCC) (Primary Dx) 07/21/2024 Telephone [facility] [place] [address] Pascual Daly MD 07/14/2024 Telephone [facility] [address] [facility] [place] [address] Pascual Daly MD Chart Prep 07/07/2024 Refill [facility] [address] [facility] [place] [address] Pascual Daly MD Fibromyalgia 07/07/2024 Orders Only GENERIC EXTERNAL DATA DEPARTMENT Provider, Generic External Data 06/22/2024 Refill [facility] [address], [place] [address] Pascual Daly MD Pain 06/15/2024 Orders Only GENERIC EXTERNAL DATA DEPARTMENT Provider, Generic External Data 06/10/2024 Refill [facility] [address] [place], [place] [address] Pascual Daly MD Fibromyalgia 06/04/2024 Orders Only GENERIC EXTERNAL DATA DEPARTMENT Provider, Generic External Data 05/31/2024 Refill [facility] [address] [facility] [place] [address] Nikia Jeter MD Type 2 diabetes mellitus without complication, with long-term current use of insulin (CMS/HCC); Benign hypertension 05/24/2024 Refill [facility] [address] [place], [place] [address] Pascual Daly MD Benign hypertension 05/18/2024 Orders Only GENERIC EXTERNAL DATA DEPARTMENT Provider, Generic External Data 05/13/2024 Telephone [facility] [address] [place] [address] Pascual Daly MD Med Refill 05/13/2024 Refill [facility] [address] [place] [address] Pascual Daly MD Fibromyalgia 05/05/2024 11:30 AM EST Office Visit [facility] [address] [place] [address] Santizo-Mckeon, Ammy, DDS Aphthous ulcer (Primary Dx) 05/04/2024 10:15 AM EST Office Visit [facility] [address] [place] [address] Pascual Daly MD Type 2 diabetes mellitus without complication, with long-term current use of insulin ([facility]) (Primary Dx); Primary hypertension; Mixed hyperlipidemia; Recurrent falls 05/04/2024 Travel 04/27/2024 9:30 AM EST Clinical Support [facility] [address] [place] [address] Amanda Fernández RN Closed fracture of multiple ribs of left side with routine healing 04/27/2024 Travel from Last 3 Months Immunizations Name Administration [...] Description 08/03/2024 10:00 AM EDT Office Visit [facility] [address] [place] [address] Pascual Daly MD [address] [place] [address] 08/16/2024 11:00 AM EDT Medication Management [facility] [address] [place] [address] Dasia Waters, PharmD [address] [place] [address] 10/28/2024 10:30 AM EDT Clinical Support [facility] [address] [place] [address] Amanda Fernández, RN [address] [place] [address] Health Maintenance Due Date Last Done Comments [...] 03/05/2021, Additional history exists Mammogram 06/05/2024 06/05/2023, 0205/2022, 05/23/2022, Additional history exists Diabetes: Urine Protein [...] Long-term current use of opiate analgesic Fibromyalgia GLUCOSE, WHOLE BLOOD Routine 07/07/2024 10:53 AM EDT ALKALINE PHOSPHATASE, BONE SPECIFIC Routine 06/15/2024 11:09 AM EST CALCIUM, IONIZED [...] with long-term current use of insulin (CMS/HCC) POCT GLYCATED HEMOGLOBIN, TOTAL Routine 05/04/2024 10:16 AM EST Type 2 diabetes mellitus without complication, with long-term current use of insulin (CMS/HCC) POCT HEATHER-14 URINE DRUG SCREEN Routine 04/27/2024 [...] Recently Relevant to Health Maintenance Results * POCT HEATHER-14 Urine Drug Screen (07/22/2024 10:33 AM EDT) Only the most recent of2 resultswithin the time period is included. Oxycodone Screen, Urine Positive Urine Urine specimen obtained by clean catch procedure / Unknown 07/22/2024 10:33 AM EDT Narrative Amanda Fernández RN - 07/22/2024 10:33 AM EDT Lot# [id number] Exp: 12-08-25 us Pascual Terry MD POINT OF CARE TEST EN TER/EDIT ORDERABLES Final Result * (ABNORMAL) Glucose, Whole Blood (07/07/2024 10:53 AM EDT) Only the most recent of4 resultswithin the time period is included. Glucose, Whole Blood 312(H) 60 - 115 mg/dL [facility] Comment:METER #: [id number] 5Testing performed in the Endocrinology Department [address] , [address], [facility]. 07/07/2024 10:5 3 AM EDT 07/07/2024 11:00 AM EDT us Generic External Data Provider LAB BLOOD ORDERAB LES Final Result Performing Organization Address [facility] [[email or web address]] Co de Phone Number [facility] [address] [place] [phone] * Alkaline Phosphatase, Bone Specific (06/15/2024 11:09 AM EST) Alkaline Phosphatase, Bone Specific 13.2 5.6 - 29.0 mcg/L [facility] Comment:Reference Range, Pre menopausal (mcg/L) 35-45 years 5.0-18.2THIS TEST WAS PERFORMED AT:[employer] [id number] [place] [address]SLCQFEO W. MASON,MD,PHD 06/15/2024 11:0 9 AM EST 06/15/2024 11:13 AM EST us Generic External Data Provider LAB BLOOD ORDERAB LES Final Result Performing Organization Address [facility]/ZIP Co de Phone Number [facility] [address] [place] [phone] * (ABNORMAL) PTH, Intact Without Calcium (06/15/2024 11:09 AM EST) Parathyroid Hormone, Intact 101.8(H) 8.7 - 77.1 pg/mL [facility] 06/15/2024 11:0 9 AM EST 06/15/2024 11:13 AM EST Generic External Data Provider LAB BLOOD ORDERAB LES Final Result Performing Organization Address City/[facility]/ZIP Co de Phone Number [facility] [address] [place] [address] [phone] * Calcium, Ionized (06/15/2024 11:09 AM EST) Calcium, Ionized 5.3 4.7 - 5.5 mg/dL [facility] Comment:THIS TEST WAS PERFOR MED AT:[employer] [place] [address]XPIBDGEORGE HURLEY MD 06/15/2024 11:0 9 AM EST 06/15/2024 11:13 AM EST Generic External Data Provider LAB BLOOD ORDERAB LES Final Result Performing Organization Address [facility] [[email or web address]] Co de Phone Number [facility] [address] [place] [phone] * (ABNORMAL) POCT HGB A1C (05/04/2024 [...] to 5OO mg/dL Cholesterol 95 <200 mg/dL [facility] Comment:Desirable Cholestero l: less than 200 mg/dLBorderline High Cholesterol: 200-239 mg/dLHigh Cholesterol: greater than 239 mg/dL LDL Cholesterol Calculated 43 <100 mg/dL [facility] Comment:Desirable LDL: less than 100 mg/dLNear Optimal/Above Optimal LDL: 110- 129 mg/dLBorderline High LDL: 130-159 mg/dLHigh LDL: 160-189 mg/dLVery High LDL: greater than or equal to 190 mg/dL HDL Cholesterol 38(L) >40 mg/dL [facility] Comment:Desirable HDL: great er than 40 mg/dL Note: This HDL assay may give artificially low results in patients with liver disease. 10/31/2023 10:4 2 AM EDT 10/31/2023 10:42 AM EDT us Generic External Data Provider LAB BLOOD ORDERAB LES Final Result [facility] [address] [place] [phone] * (ABNORMAL) Albumin, Random Urine W/Creatinine (07/02/2023 10:06 AM EDT) Creatinine, Urine 163.81 mg/dL [facility] Microalbumin Urine 59.0 mg/L H [facility] Microalbum Creatinine Ratio Ur 36.0(H) <30 ug/mg cr [facility] Comment:Albumin/Creatinine R atio Reference Ranges: Normal: < 30 ug/mg creatinine Microalbuminuria: 30 - 300 ug/mg creatinineClinical Albuminuria: > 300 ug/mg creatinine 07/02/2023 10:0 6 AM EDT 07/02/2023 11:41 AM EDT us Generic External Data Provider LAB URINE ORDERAB LES Final Result [facility] [address] [place] [address] [phone] * BI Mammogram Screening Tomosynthesis Bilateral (06/05/2023 11:00 AM EST) Anatomical Region Laterality Modality Breast Bilateral Mammography 06/05/2023 11:0 0 AM EST Narrative 07/01/2023 11:45 AM EDT ? [facility] ? [address] ?[place] [address] ? Mammography Report ? Signed ? Patient: Brandie Santana ?MR#: [id number] ? : 1950 ?Acct:[id number] ? Age/Sex: 73 / F ?ADM Date: 06/05/23 ? Loc: HO.MAMMO ? Attending Dr: Briseida Rocha MD ? Ordering Physician: Aj,Briseida MD ?Results: 1Negat ?? juaquin ? Date of Service: 06/05/23 ?Follow Up: 1 Year From Orig ?? inal Mammogram ? Procedure(s): MM tomosynthesis screening BI ?? Accession Number(s): [id number] ? cc: Pascual Darnell MD; Briseida Rocah MD ? EXAMINATION: ?? MM SCREENING DIGITAL BREAST TOMOSYNTHESIS, BILATERAL ? CLINICAL INFORMATION: ? Screening. Asymptomatic. ? COMPARISON: ?? Mammography: This study is compared with prior exams dating back to ?? 2018. ? TECHNIQUE: ?? Digital breast tomosynthesis is [...] 1141 ? DD/ 1100 ? TD/TT: ? Wax Pourer: ? Procedure Note Silvestre, Image - 07/01/2023 [facility] [address] [place] [address] Dr. [place], [place] [address] Mammography Report Signed Patient: Dino Santana#: [id number] : 1950Acct:[id number] Age/Sex: 73 / FADM Date: 06/05/23 Loc: [facility] Attending Dr: Briseida Rocha MD Ordering Physician: Briseida Rochaesults: 1Negat juaquin Date of Service: 06/05/23Follow Up: 1 Year From Orig inal Mammogram Procedure(s): MM tomosynthesis screening BI Accession Number(s): [id number] cc: Pascual Darnell MD; Briseida Rocha MD [...] in OV> 07/01/23 1141 DD/ 1100 TD/TT: Wax Pourer: [facility] External Provider IMG BI PROCEDURES Final Result * Hepatitis C Viral RNA, Genotype, LiPA (01/15/2023 11:08 AM EDT) Hepatitis C Genotype Not Detected [facility] Comment: Genotype not detected due [...] characteristics of thisassay have been determined by [employer], [place], [place]. ??The modificationshave not been cleared or approved by the FDA. ??Thisassay has been validated pursuant to the CLIAregulations and is used for clinical purposes.For additional information, please refer tohttp://education.Blyk/faq/HCVGenotyping(This link is being provided for informational/educational purposes only.)THIS TEST WAS PERFORMED AT:[employer] [id number] [place] [address]LEFKGNDJOHN CORDON MD,PHD 01/15/2023 11:0 8 AM EDT 01/15/2023 11:08 AM EDT [facility] External Provider LAB BLO OD ORDERABLES Final Result [facility] [address] [place] [phone] * Colonoscopy (03/20/2018) Colonoscopy Normal Normal 03/20/2018 Narrative Sondra Rowe - 03/20/2018 9:09 AM EST Recommended 10 year follow up Historical Provider HEALTH MAINTENANCE Edited Result - Final from Last 3 Months or Most Recently Relevant to Health Maintenance [place] [address] [address] [place] [address] - [facility] Care Teams Plastic Jig And Fixture Builder Relationship Specialty Start Date End Date Pascual Daly MD [address] [place] [address] PCP - General Internal Medicine 02/22/14 Fani Heck PharmD [address] [place] [address] Pharmacist Internal Medicine 12/16/22
--- OUTSIDE RECORDS SUMMARY | 2024-07-26 10:02 | XMS_ITS | Encounter Summary ---
Author Organization [employer] Address [address] [facility] 7t [place] [address] Care Team Providers Care Radio Station Audio Engineer Name Role Phone Pascual Daly MD Primary Care Provide r Fani Heck PharmD Unavailable [phone] Encounter Details Date Type Department Care Team ([facility] Contact Info) Description 08/29/[address] [facility] [address] [place] [address] Pascual Daly MD [address] [place] [address] Social History Tobacco Use Types Packs/Day Years [...] Description 08/03/2024 10:00 AM EDT Office Visit [facility] [address] [place] [address] Pascual Daly MD 230 [facility] [place] [address] 08/16/2024 11:00 AM EDT Medication Management [facility] [address] [place] [address] Dasia Waters, PharmD [address] [place] [address] 10/28/2024 10:30 AM EDT Clinical Support [facility] [address] [place], [place] [phone] Amanda Fernández, RN [address] [place] [address] documented as of this encounter Goals Goal Patient Goal Type Associated Problems Recent Progress Patient-Stated? Author Blood Pressure < 140/90 Blood Pressure 133/70( 025 11:28 AM EST) No Fani Heck, KristiD documented as of this encounter Procedures Procedure Name Priority Date/Time Associated Diagnosis Comments COLONOSCOPY Routine 03/20/2018 documented in this encounter Results * Colonoscopy (03/20/2018) Colonoscopy Normal Normal 03/20/2018 Narrative Sondra Rowe - 03/20/2018 9:09 AM EST Recommended 10 year follow up us Historical Provider HEALTH MAINTENANCE Edited Result - Final documented in this encounter Visit Diagnoses Not on filedocumented in this encounter Additional Health Concerns Assessment Noted Time PHQ-9 Depression Total Score: 8 16/ 23 9:26 AM EDT documented as of this encounter Care Teams Radio Station Audio Engineer Relationship Specialty Start Date End Date Pascual Daly MD [address] [place], [place] PCP - General Internal Medicine 02/22/14 Fani Heck, Woody [address] [place] [address] Pharmacist Internal Medicine 12/16/22 documented as of this encounter
--- OUTSIDE RECORDS SUMMARY | 2024-07-26 10:02 | XMS_ITS | Encounter Summary ---
Author Organization [employer] Address 75 [facility] 7t [place] [address] Care Team Providers Care Surfboard Maker Name Role Phone Pascual Daly MD Primary Care Provide r Fani Heck PharmD Unavailable [phone] Reason for Visit * Reason Comments Med Refill Encounter Details Date Type Department Care Team ([facility] Contact Info) Description 07/16/2022 Refill [facility] 230 [place] [address] Pascual Daly MD 230 [place] [address] Social History Tobacco Use Types Packs/Day Years [...] Upcoming Encounters Date Type Department Care Team ([facility] Contact Info) Description 08/03/2024 10:00 AM EDT Office Visit [facility] [address] [place] [address] Pascual Daly MD 230 [place] [address] 08/16/2024 11:00 AM EDT Medication Management [facility] 230 [place] [address] Dasia Waters PharmD 230 [place] [address] 10/28/2024 10:30 AM EDT Clinical Support [facility] 505 [place], [place] [phone] Amanda Fernández, RN 505 [place] [address] documented as of this encounter Goals Goal [...] documented as of this encounter Care Teams Surfboard Maker Relationship Specialty Start Date End Date [place] [address] PCP - General Internal Medicine 02/22/14 Fani Heck, PharmD [address] [place] [address] Pharmacist Internal Medicine 12/16/22 documented as of this encounter
--- OUTSIDE RECORDS SUMMARY | 2024-07-26 10:02 | XMS_ITS | Encounter Summary ---
Author Organization [employer] Address 75 [facility] 7t [place] [address] Care Team Providers Care Veterinary Technology Instructor Name Role Phone Pascual Daly MD Primary Care Provide r Fani Heck PharmD Unavailable [phone] Encounter Details Date Type Department Care Team ([facility] Contact Info) Description 07/01/2022 Abstract [facility] 230 [place] [address] Pascual Daly MD 230 [place], [place] [phone] Social History Tobacco Use Types Packs/Day Years [...] Description 08/03/2024 10:00 AM EDT Office Visit [facility] 230 [facility] [place] [address] Pascual Daly MD [facility] [place] 08/16/2024 11:00 AM EDT Medication Management [facility] 230 [facility] [place] [phone] Dasia Waters, PharmD [facility] [place] 10/28/2024 10:30 AM EDT Clinical Support [facility] 505 [place], [place] [phone] Amanda Fernández, RN 505 [place], [place] documented as of this encounter Goals [...] documented as of this encounter Care Teams Veterinary Technology Instructor Relationship Specialty Start Date End Date Pascual Daly MD [facility] [place] PCP - General Internal Medicine 02/22/14 Fani Heck, PharmD [facility] [place] Pharmacist Internal Medicine 12/16/22 documented as of this encounter
--- OUTSIDE RECORDS SUMMARY | 2024-07-26 10:02 | XMS_ITS | Encounter Summary ---
Author Organization [employer] Address 75 [facility] 7t [place] [address] Care Team Providers Care Head Screen Worker Name Role Phone Pascual Daly MD Primary Care Provide r Fani Heck PharmD Unavailable [phone] Reason for Visit * Reason Comments Med Refill Encounter Details Date Type Department Care Team (Late st Contact Info) Description 03/04/2023 Refill [facility] 230 [place] [address] Pascual Daly MD 230 [place], [place] [phone] Type 2 diabetes mellitus without complication, with long-term current use of insulin ([facility]) Social History Tobacco Use Types Packs/Day [...] Description 08/03/2024 10:00 AM EDT Office Visit [facility] MED[facility]INE [address] [place] [address] Pascual Daly MD 230 [place] [address] 08/16/2024 11:00 AM EDT Medication Management [facility] 230 [place] [address] Dasia Waters, KristiD 230 [place] [address] 10/28/2024 10:30 AM EDT Clinical Support [facility] 505 [place] [address] Amanda Fernández, AALIYAH 505 [place] [address] documented as of this encounter Goals Goal Patient Goal Type Associated Problems Recent Progress Patient-Stated? Author Blood Pressure < 140/90 Blood Pressure 133/70( 025 11:28 AM EST) Fani Thomas, PharmD documented as of this encounter Visit Diagnoses Diagnosis Type 2 diabetes mellitus without complication, with long-term current use of insulin ([facility]) documented in this encounter Additional Health Concerns Assessment Noted Time PHQ-9 Depression Total Score: 9 02/25/20 23 11:02 AM EST documented as of this encounter Care Teams Head Screen Worker Relationship Specialty Start Date End Date Pascual Daly MD 230 [place] [address] PCP - General Internal Medicine 02/22/14 Fani Heck PharmD 230 [place] [address] Pharmacist Internal Medicine 12/16/22 documented as of this encounter
--- OUTSIDE RECORDS SUMMARY | 2024-07-26 10:02 | XMS_ITS | Encounter Summary ---
Author Organization [employer] Address 75 [facility] 7t [place] [address] Care Team Providers Care Tool Liaison Name Role Phone Pascual Daly MD Primary Care Provide r Fani Heck PharmD Unavailable [phone] Reason for Visit * Reason Onset Date Comments Med Refill 01/13/2024 Encounter Details Date Type Department Care Team ([facility] st Contact Info) Description 01/13/2024 Telephone [facility] MEDICINE 230 [place] [address] Pascual Daly MD 230 [place], [place] [phone] Med Refill Social History Tobacco Use Types [...] immediate release tablet To be sent to: [facility] - [place], [place] - [address] [place] [address] documented in this encounter Plan of Treatment Upcoming Encounters Date Type Department Care Team ([facility] st Contact Info) Description 08/03/2024 10:00 AM EDT Office Visit [facility] MED[facility]INE [address] [place] [address] Pascual Daly MD 230 [place] [address] 08/16/2024 11:00 AM EDT Medication Management [facility] [address] [place] [address] Dasia Waters, KristiD 230 [place] [address] 10/28/2024 10:30 AM EDT Clinical Support [facility] 505 [place] [address] Amanda Fernández, RN 505 [place] [address] documented as of this encounter Goals Goal [...] documented as of this encounter Care Teams Tool Liaison Relationship Specialty Start Date End Date Pascual Daly MD 230 [place] [address] PCP - General Internal Medicine 02/22/14 Fani Heck, PharmD [address] [place] [address] Pharmacist Internal Medicine 12/16/22 documented as of this encounter
--- OUTSIDE RECORDS SUMMARY | 2024-07-26 10:02 | XMS_ITS | Encounter Summary ---
Author Organization [employer] Address [address] [facility] [address] 7t [place] [address] Care Team Providers Care Wildlife Biology Technician Name Role Phone Pascual Daly MD Primary Care Provide r Fani Heck PharmD Unavailable [phone] Encounter Details Date Type Department Care Team (Late st Contact Info) Description 03/05/2024 Refill [facility] 230 [place] [address] Jefry Chun Benign hypertension; Type 2 diabetes mellitus without complication, with long-term current use of insulin ([facility]) Social History Tobacco Use Types Packs/Day [...] Description 08/03/2024 10:00 AM EDT Office Visit [facility] MED[facility] [address] [place] [address] Pascual Daly MD 230 [place] [address] 08/16/2024 11:00 AM EDT Medication Management [facility] [address] [place] [address] Dasia Waters, KristiD 230 [place] [address] 10/28/2024 10:30 AM EDT Clinical Support [facility] 505 [place] [address] Amanda Fernández, AALIYAH 505 [place] [address] documented as of this encounter Goals Goal Patient Goal Type Associated Problems Recent Progress Patient-Stated? Author Blood Pressure < 140/90 Blood Pressure 133/70( 025 11:28 AM EST) Fani Thomas, KristiD documented as of this encounter Visit Diagnoses Diagnosis Benign hypertension Essential hypertension, benign Type 2 diabetes mellitus without complication, with long-term current use of insulin ([facility]) documented in this encounter Additional Health Concerns Assessment Noted Time PHQ-9 Depression Total Score: 9 01/29/20 24 11:00 AM EDT documented as of this encounter Care Teams Wildlife Biology Technician Relationship Specialty Start Date End Date Pascual Daly MD 230 [place] [address] PCP - General Internal Medicine 02/22/14 Fani Heck, KristiD 230 [place] [address] Pharmacist Internal Medicine 12/16/22 documented as of this encounter
--- OUTSIDE RECORDS SUMMARY | 2024-07-26 10:02 | XMS_ITS | Encounter Summary ---
Author Organization [employer] Address 75 [facility] 7t [place] [address] Care Team Providers Care [employer] French Teacher Name Role Phone Pascual Daly MD Primary Care Provide r Fani Heck PharmD Unavailable [phone] Reason for Visit * Reason Comments Med Refill Encounter Details Date Type Department Care Team (Late Contact Info) Description 12/28/2022 Refill [facility] 230 [place] [address] Titi Gray FNP Major depressive disorder with [...] Description 08/03/2024 10:00 AM EDT Office Visit [facility] 230 [place], [place] [phone] Pascual Daly MD 230 [place] [address] 08/16/2024 11:00 AM EDT Medication Management [facility] 230 [place], [place] [phone] Dasia Waters PharmD 230 [place], [place] 10/28/2024 10:30 AM EDT Clinical Support [facility] 505 [place] [address] Amanda Fernández, RN 505 [place], [place] documented as of this encounter Goals [...] documented as of this encounter Care Teams [employer] French Teacher Relationship Specialty Start Date End Date Pascual Daly MD [address] [place] [address] PCP - General Internal Medicine 02/22/14 Fani Heck PharmD [address] [place] [address] Pharmacist Internal Medicine 12/16/22 documented as of this encounter
--- OUTSIDE RECORDS SUMMARY | 2024-07-26 10:02 | XMS_ITS ---
Author Organization [facility] Address [address] [place] [phone] Care Team Providers Care Auto Air Conditioning Mechanic Name Role Phone Adolph Terry MD, Pascual Primary Care Provide r Vidal Castillo Jr, Cortes Unavailable Zeb Tang Unavailable Unavailable Encounters Encounter Location Date Provider Diagnosis [facility] [address] [facility] [address] [place] [phone] 03/01/2024 Cortes Castillo Jr Plan Of Treatment Next Appt Details Provider Name:Cortes wilburn Jr, 12/01/2024 09:20:00 AM, [address], [address], [place], [address], Progress Notes * GERARD WILLISADOB:[birth year] (74 yo F)Acc No.[id number]:03/01/2024 Patient:?ROSANNE WILLIS :1950???Age:74 Y???Sex:Female Address:[address] [place] [address] Subjective: * Chief Complaints: * ??? * Medical History:? * Surgical History:? * Hospitalization/Major Diagno stic Procedure:? * Medications:? Objective: Assessment: Plan: * Treatment: * Procedure Codes:? * Preventive Medicine:? ??Screenings:?Fall Risk Screening?Plan of Care:?Documented,?Type of fall plan of care:?Balance, strength and gait training or instruction provided.? * true * Date:? Generated for Suzanne phan/Hayden/Vaishnavismitting on:?07/26/2024 10:02 AM EDT
--- OUTSIDE RECORDS SUMMARY | 2024-07-26 10:02 | XMS_ITS | Encounter Summary ---
Author Organization [employer] Address 75 [facility] 7t [place] [address] Care Team Providers Care Forming Machine Operator Name Role Phone Pascual Daly MD Primary Care Provide r Fani Heck PharmD Unavailable [phone] Reason for Visit * Reason Comments Med Refill Encounter Details Date Type Department Care Team (Late Contact Info) Description 08/08/2022 Refill [facility] 230 [place] [address] Momo Rizo MD 230 [place] [address] Mild intermittent asthma without complication Social History [...] Description 08/03/2024 10:00 AM EDT Office Visit [facility] 230 [place] [address] Pascual Daly MD 230 [place] [address] 08/16/2024 11:00 AM EDT Medication Management [facility] 230 [place] [address] Dasia Waters, KristiD 230 [place] [address] 10/28/2024 10:30 AM EDT Clinical Support [facility] 505 [place], [place] [phone] Amanda Fernández, RN 505 [place] [address] documented as of this encounter Goals Goal [...] documented as of this encounter Care Teams Forming Machine Operator Relationship Specialty Start Date End Date Pascual Daly MD [address] [place] [address] PCP - General Internal Medicine 02/22/14 Fani Heck, KristiD [address] [place] [address] Pharmacist Internal Medicine 12/16/22 documented as of this encounter
--- OUTSIDE RECORDS SUMMARY | 2024-07-26 10:02 | XMS_ITS | Encounter Summary ---
Author Organization [email or web address] Address 75 [facility] 7t [place] [address] Care Team Providers Care Chip Washer Name Role Phone Pascual Daly MD Primary Care Provide r Fani Heck PharmD Unavailable [phone] Reason for Visit * Reason Onset Date Comments FYI 12/31/2023 Encounter Details Date Type Department Care Team ([facility] st Contact Info) Description 12/31/2023 Telephone [facility] MED[facility]INE 230 [place] [address] Pascual Daly MD 230 [place], [place] [phone] Social History Tobacco Use Types Packs/Day Years [...] any questions you can contact Franky at [phone]. documented in this encounter Plan of Treatment Upcoming Encounters Date Type Department Care Team (Late st Contact Info) Description 08/03/2024 10:00 AM EDT Office Visit [facility] MEDICINE [address] [place] [address] Pascual Daly MD 230 [place] [address] 08/16/2024 11:00 AM EDT Medication Management [facility] MEDICINE 230 [place] [address] Dasia Waters, PharmD 230 [place] [address] 10/28/2024 10:30 AM EDT Clinical Support [facility] [address] [place] [address] Amanda Fernández, RN [address] [place], [place] documented as of this encounter Goals [...] documented as of this encounter Care Teams Chip Washer Relationship Specialty Start Date End Date Pascual Daly MD 230 [place] [address] PCP - General Internal Medicine 02/22/14 Fani Heck, PharmD 230 [place] [address] Pharmacist Internal Medicine 12/16/22 documented as of this encounter
--- OUTSIDE RECORDS SUMMARY | 2024-07-26 10:02 | XMS_ITS | Encounter Summary ---
Author Organization [employer] Address 75 [facility] 7t [place] [address] Care Team Providers Care Sweet Pickle Maker Name Role Phone Pascual Daly MD Primary Care Provide r Fani Heck PharmD Unavailable [phone] Encounter Details Date Type Department Care Team ([facility] st Contact Info) Description 07/21/2024 Telephone [facility] 230 [place] [address] Pascual Daly MD 230 [place] [address] Social History Tobacco Use Types Packs/Day Years [...] encounter Miscellaneous Notes * Telephone Encounter - Vashti Guthrie - 07/21/2024 11:18 AM EDT Pharmacy is requesting an updated CDTM referral with a diagnosis of diabetes E11.9 Type 2 diabetes mellitus without complication, with long-term current use of insulin. This is to replace existing referral that no longer meets visit requirements. Please send at your earliest convenience. Thank you! documented in this encounter Plan of Treatment Upcoming Encounters Date Type Department Care Team ([facility] st Contact Info) Description 08/03/2024 10:00 AM EDT Office Visit [facility] [address] [place] [address] Pascual Daly MD 230 [place] [address] 08/16/2024 11:00 AM EDT Medication Management [facility] 230 [place] [address] Dasia Waters PharmD 230 [place] [address] 10/28/2024 10:30 AM EDT Clinical Support [facility] 505 [place] [address] Amanda Fernández RN 505 [place] [address] documented as of this encounter Goals Goal [...] documented as of this encounter Care Teams Sweet Pickle Maker Relationship Specialty Start Date End Date Pascual Daly MD 230 [place] [address] PCP - General Internal Medicine 02/22/14 Fani Heck, KristiD [address] [place] [address] Pharmacist Internal Medicine 12/16/22 documented as of this encounter
--- OUTSIDE RECORDS SUMMARY | 2024-07-26 10:02 | XMS_ITS | Encounter Summary ---
Author Organization [employer] Address 75 [facility] 7t [place] [address] Care Team Providers Care Custom Bookbinder Name Role Phone Pascual Daly MD Primary Care Provide r Fani Heck PharmD Unavailable [phone] Reason for Visit * Reason Onset Date Comments FYI 12/11/2023 Durable Medical Equipment 12/11/2023 Encounter Details Date Type Department Care Team (Late st Contact Info) Description 12/11/2023 Telephone [facility] MEDICINE 230 [place], [place] [phone] Pascual Daly MD 230 [place], [place] [phone] FYI ; Durable Medical Equipment Social History [...] EDT Tc from [facility] with [facility] informing that pt had 2 falls within the last 3 days and is requesting two DME scripts to be sent to [facility] which: [facility] Please fax over to [phone] documented in this encounter Plan of Treatment Upcoming Encounters Date Type Department Care Team (Late st Contact Info) Description 08/03/2024 10:00 AM EDT Office Visit [facility] MEDICINE [address] [place] [address] Pascual Daly MD [address] [place] [address] 08/16/2024 11:00 AM EDT Medication Management [facility] MED[facility] [address] [place] [address] Dasia Waters, KristiD 230 [place] [address] 10/28/2024 10:30 AM EDT Clinical Support [facility] 505 [place] [address] Amanda Fernández, RN 505 [place] [address] documented as of this encounter Goals Goal [...] documented as of this encounter Care Teams Custom Bookbinder Relationship Specialty Start Date End Date Pascual Daly MD 230 [place] [address] PCP - General Internal Medicine 02/22/14 Fani Heck, PharmD 230 [place] [address] Pharmacist Internal Medicine 12/16/22 documented as of this encounter
--- OUTSIDE RECORDS SUMMARY | 2024-07-26 10:02 | XMS_ITS | Encounter Summary ---
Author Organization [employer] Address 75 [facility] 7t [place] [address] Care Team Providers Care Foreign Collection Clerk Name Role Phone Pascual Daly MD Primary Care Provide r Fani Heck PharmD Unavailable [phone] Reason for Visit * Reason Onset Date Comments Med Refill 10/11/2022 Encounter Details Date Type Department Care Team (Late st Contact Info) Description 10/11/2022 Telephone [facility] MEDICINE 230 [place] [address] Pascual Daly MD 230 [place], [place] [phone] Med Refill Social History Tobacco Use Types [...] Description 08/03/2024 10:00 AM EDT Office Visit [facility] MEDICINE 230 [place] [address] Pascual Daly MD 230 [place] [address] 08/16/2024 11:00 AM EDT Medication Management [facility] MEDICINE 230 [place] [address] Dasia Waters PharmD 230 [place] [address] 10/28/2024 10:30 AM EDT Clinical Support [facility] 505 [place], [place] [phone] Amanda Fernández, RN 505 [place] [address] documented as of this encounter Goals Goal [...] documented as of this encounter Care Teams Foreign Collection Clerk Relationship Specialty Start Date End Date Pascual Daly MD [address] [place] [address] PCP - General Internal Medicine 02/22/14 Fani Heck PharmD [address] [place] [address] Pharmacist Internal Medicine 12/16/22 documented as of this encounter
--- OUTSIDE RECORDS SUMMARY | 2024-07-26 10:03 | XMS_ITS | Encounter Summary ---
Author Organization [employer] Address 75 [facility] 7t [place] [address] Care Team Providers Care Call Or Contact Centre Manager Name Role Phone Pascual Daly MD Primary Care Provide r Fani Heck PharmD Unavailable [phone] Reason for Visit * Reason Onset Date Comments FYI 11/06/2023 Encounter Details Date Type Department Care Team ([facility] st Contact Info) Description 11/06/2023 Telephone [facility] MEDICINE 230 [place] [address] Pascual Daly MD 230 [place], [place] [phone] I Social History Tobacco Use Types Packs/Day Years [...] - 11/06/2023 4:39 PM EDT Tc from [facility] I[facility] CORDERO PT informing pt has started services For PT 11/06/23 documented in this encounter Plan of Treatment Upcoming Encounters Date Type Department Care Team ([facility] st Contact Info) Description 08/03/2024 10:00 AM EDT Office Visit [facility] MEDICINE [address] [place] [address] Pascual Daly MD 230 [place] [address] 08/16/2024 11:00 AM EDT Medication Management [facility] MED[facility]INE [address] [place] [address] Dasia Waters, Woody 230 [place] [address] 10/28/2024 10:30 AM EDT Clinical Support [facility] 505 [place] [address] Amanda Fernández, RN 505 [place] [address] documented as of this encounter Goals Goal [...] documented as of this encounter Care Teams Call Or Contact Centre Manager Relationship Specialty Start Date End Date Pascual Daly MD 230 [place] [address] PCP - General Internal Medicine 02/22/14 Fani Heck, PharmD [address] [place] [address] Pharmacist Internal Medicine 12/16/22 documented as of this encounter
--- OUTSIDE RECORDS SUMMARY | 2024-07-26 10:03 | XMS_ITS | Encounter Summary ---
Author Organization [facility] Address [address] [place] [address] 7t [place] [address] Care Team Providers Care Utility Clerk Name Role Phone Pascual Daly MD Primary Care Provide r Fani Heck PharmD Unavailable [phone] Encounter Details Date Type Department Care Team (Late st Contact Info) Description 03/11/2022 Abstract [facility] MEDICINE [address] [place] [address] Fani Heck, PharmD [address] [place] [address] Social History Tobacco Use Types Packs/Day Years [...] Visit [facility] [address] [place] [address] [phone] Pascual Daly MD [address] [place] [address] 08/16/2024 11:00 AM EDT Medication Management [facility] [address] [place] [address] Dasia Waters, KristiD [address] [place] [address] 10/28/2024 10:30 AM EDT Clinical Support [facility] MED & PEDS [address] [place] [address] Amanda Fernández, RN [address] [place] [address] documented as of this encounter Visit Diagnoses Not on filedocumented in this encounter Care Teams Utility Clerk Relationship Specialty Start Date End Date Pascual Daly MD [address] [place] [address] PCP - General Internal Medicine 02/22/14 Fani Heck, KristiD [address] [place] [address] Pharmacist Internal Medicine 12/16/22 documented as of this encounter
--- OUTSIDE RECORDS SUMMARY | 2024-07-26 10:03 | XMS_ITS | Encounter Summary ---
Author Organization [employer] Address [address] [facility] 7t [place] [address] Care Team Providers Care Cash Register Balancer Name Role Phone Pascual Daly MD Primary Care Provide r Fani Heck PharmD Unavailable [phone] Encounter Details Date Type Department Care Team (Late st Contact Info) Description 03/13/2022 Abstract [facility] MEDICINE [address] [place] [address] Provider, MD Bill Social History Tobacco Use Types Packs/Day Years [...] Office Visit [facility] [address] [place] [address] Pascual Daly MD [address] [place] [address] 08/16/2024 11:00 AM EDT Medication Management [facility] MED[facility]INE [address] [place] [address] Dasia Waters, PharmD [address] [place] [address] 10/28/2024 10:30 AM EDT Clinical Support [facility]EDS [address] [place] [address] Amanda Fernández, AALIYAH [address] [place], [place] documented as of this encounter Visit Diagnoses Not on filedocumented in this encounter Care Teams Cash Register Balancer Relationship Specialty Start Date End Date Pascual Daly MD [address] [place] [address] PCP - General Internal Medicine 02/22/14 Fani Heck, KristiD [address] [place] [address] Pharmacist Internal Medicine 12/16/22 documented as of this encounter
--- OUTSIDE RECORDS SUMMARY | 2024-07-26 10:03 | XMS_ITS ---
Author Organization [facility] Address [address] [place] [phone] Care Team Providers Care Field Mechanical Meter Tester Name Role Phone Adolph Terry MD, Pascual Primary Care Provide r Vidal Castillo Jr, Cortes Unavailable Zeb Tang Unavailable Unavailable Encounters Encounter Location Date Provider Diagnosis [facility] [address] [facility] [address] [place] [phone] 11/24/2023 Cortes Castillo Jr Plan Of Treatment Next Appt Details Provider Name:Cortes wilburn Jr, 12/01/2024 09:20:00 AM, [address], [address], [place], [address], Progress Notes * GERARD WILLISADOB:[birth year] (74 yo F)Acc No.[id number]:11/24/2023 Patient:?ROSANNE WILLIS :1950???Age:73 Y???Sex:Female Address:[address] [place] [phone] Subjective: * Chief Complaints: * ??? * Medical History:? * Surgical History:? * Hospitalization/Major Diagno stic Procedure:? * Medications:? Objective: Assessment: Plan: * Treatment: * Procedure Codes:? * Preventive Medicine:? ??Screenings:?Fall Risk Screening?Plan of Care:?Documented,?Type of fall plan of care:?Balance, strength and gait training or instruction provided.? * true * Date:? Generated for Suzanne phan/Hayden/Vaishnavismitting on:?07/26/2024 10:03 AM EDT
--- OUTSIDE RECORDS SUMMARY | 2024-07-26 10:03 | XMS_ITS | Encounter Summary ---
Author Organization [employer] Address [address] [facility] 7t [place] [address] Care Team Providers Care Hat Liner Name Role Phone Pascual Daly MD Primary Care Provide r Fani Heck PharmD Unavailable [phone] Reason for Visit * Reason Onset Date Comments Med Refill 12/15/2023 Encounter Details Date Type Department Care Team ([facility] st Contact Info) Description 12/15/2023 Telephone [facility] [address] [place] [address] Pascual Daly MD [address] [place], [place] [phone] Med Refill Social History Tobacco Use Types [...] immediate release tablet To be sent to: [facility] - [place], [place] - [address] [place] [address] documented in this encounter Plan of Treatment Upcoming Encounters Date Type Department Care Team ([facility] st Contact Info) Description 08/03/2024 10:00 AM EDT Office Visit [facility] MEDICINE [address] [place] [address] Pascual Daly MD [address] [place] [address] 08/16/2024 11:00 AM EDT Medication Management [facility] MED[facility] [address] [place] [address] Dasia Waters, PharmD 230 [place] [address] 10/28/2024 10:30 AM EDT Clinical Support [facility] 505 [place] [address] Amanda Fernández, RN [address] [place] [address] documented as of this encounter Goals Goal [...] documented as of this encounter Care Teams Hat Liner Relationship Specialty Start Date End Date Pascual Daly MD [address] [place] [address] PCP - General Internal Medicine 02/22/14 Fani Heck, PharmD [address] [place] [address] Pharmacist Internal Medicine 12/16/22 documented as of this encounter
--- OUTSIDE RECORDS SUMMARY | 2024-07-26 10:03 | XMS_ITS | Encounter Summary ---
Author Organization [employer] Address [address] [place] [address] 7t [place] [address] Care Team Providers Care Sound Ranging Crewmember Name Role Phone Pascual Daly MD Primary Care Provide r Fani Heck PharmD Unavailable [phone] Encounter Details Date Type Department Care Team (Late st Contact Info) Description 03/11/2022 Abstract [facility] MEDICINE [address] [place] [address] Pascual Daly MD [address] [place] [address] Social History Tobacco Use Types Packs/Day Years [...] Description 08/03/2024 10:00 AM EDT Office Visit [facility] MEDICINE [address] [place] [address] [phone] Pascual Daly MD [address] [place] [address] 08/16/2024 11:00 AM EDT Medication Management [facility] MEDICINE [address] [place] [address] [phone] Dasia Waters, KristiD [address] [place] [address] 10/28/2024 10:30 AM EDT Clinical Support [facility] MED & PEDS [address] [place] [address] Amanda Fernández, RN [address] [place] [address] documented as of this encounter Visit Diagnoses Not on filedocumented in this encounter Care Teams Sound Ranging Crewmember Relationship Specialty Start Date End Date Pascual Daly MD [address] [place] [address] PCP - General Internal Medicine 02/22/14 Fani Heck, KristiD [address] [place] [address] Pharmacist Internal Medicine 12/16/22 documented as of this encounter
--- OUTSIDE RECORDS SUMMARY | 2024-07-26 10:03 | XMS_ITS | Encounter Summary ---
Author Organization [employer] Address [address] [facility] 7t [place] [address] Care Team Providers Care Sweatband Shaper Name Role Phone Pascual Daly MD Primary Care Provide r Fani Heck PharmD Unavailable [phone] Encounter Details Date Type Department Care Team (Latest Contact Info) Description 05/26/2019 Abstract [facility] CONVERSIONS Dental, Provider, DDS Social History [...] EDT Office Visit [facility] MEDICINE [address] [place] [address] Pascual Daly MD [address] [place] [address] 08/16/2024 11:00 AM EDT Medication Management [facility] MEDICINE [address] [place] [address] Dasia Waters, PharmD [address] [place] [address] 10/28/2024 10:30 AM EDT Clinical Support [facility] [address] [place] [address] Amanda Fernández, RN [address] [place] [address] documented as of this encounter Visit Diagnoses Not on filedocumented in this encounter Care Teams Sweatband Shaper Relationship Specialty Start Date End Date Pascual Daly MD [address] [place] [address] PCP - General Internal Medicine 02/22/14 Fani Heck PharmD [address] [place] [address] Pharmacist Internal Medicine 12/16/22 documented as of this encounter
== END 2024-07-26 09:50 | disposition home or self-care (01) ==
LOC: HO.HCS 09:03
PROVIDERS: PCP Internal Medicine; Visit Provider Internal Medicine
DX: I25.10 Atherosclerotic heart disease of native coronary artery without angina pectoris (principal); E78.49 Other hyperlipidemia; R06.02 Shortness of breath; R00.2 Palpitations
CPT/HCPCS: 93010; 99214; G2211

== ENCOUNTER → 2024-07-26 09:02 | Outpatient (BNVA) | payer OTHER, SELFPAY | PROVIDERS: PCP Internal Medicine; Visit Provider Internal Medicine | DX: I25.10 Atherosclerotic heart disease of native coronary artery without angina pectoris (principal); I25.2 Old myocardial infarction; E78.49 Other hyperlipidemia; R06.02 Shortness of breath; R00.2 Palpitations | CPT/HCPCS: 93005; 99212 ==

== ENCOUNTER 2024-07-29 08:43 | Outpatient (AMB) | payer OTHER, SELFPAY ==
--- NOTE | 2024-07-29 07:15 | A.OFFVIS_ITS ---
Vital Signs 07/29/24 08:48 Height 4 ft 11 in Weight 152 lb 1.903 oz BMI 30.7 BP 128/56 L Blood Pressure Location Rt brachial Position Sitting Pulse 67 Pulse Source Pulse Oximeter Pulse Oximetry (%) 98 Oxygen Delivery Method Room Air Intake Visit Reasons: T1DM Intake Note: Patient presents today for a follow-up on Type 1 Diabetes Mellitus: Last Diabetic eye exam was on: 01/20/2024 Last Podiatry exam was on: Patient does not see a Band Saw Operator Cake Cutting Most recent HbA1c: 8.6%, 05/18/2024 Random Glucose- 265 mg/dL, Today Operations Support Analyst Required: Yes Operations Support Analyst Language: Community Health Representative Services: Operations Support Analyst Present Operations Support Analyst Name: RADHA Tao/RAJ VICENTE Information Interpreted: non-clinical & clinical Accompanied by: AREA FIELD WORKER Allergies lorazepam [LORAZEPAM] Allergy (Severe, Verified 09/07/24 10:24) DELIRIUM celecoxib [From Celebrex] Allergy (Intermediate, Verified 09/07/24 10:24) ITCHING tramadol [TRAMADOL] Allergy (Intermediate, Verified 09/07/24 10:24) ITCHING zolpidem [Ambien] Allergy (Unknown, Verified 09/07/24 10:24) unknown HPI Comments Details: Patient is a 74-year-old female with DM type 1 diagnosed at 40 years of age, initially thought to have type 2 diabetes, who presents for management of diabetes. She was last seen 3 weeks ago. We are actively titrating her insulin upward so that she can get cleared for trigger finger release surgery. She does report a history of hypoglycemic coma in the past. 2023 she dropped her sugar to the 20s. She reports using her insulin prior to meals without fail. 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 Scalp folliculitis, fibromyalgia, microcytic anemia pernicious depression. Bariatric surgery 12/09/2016. MD in past Micro and macrovascular complications: CAD Diabetes medications: Tresiba 21 units Fiasp Breakfast and supper: 80-100 eat first and take 2 units 101-200 5 unit 201-250 6 units 251-300 7 units Over 300 9 unit lunch add 1 unit to all doses except 80-100 Symptoms reported: denies numbness, tingling, cramping in lower extremities Hypoglycemia: reports hypoglycemia 3 nights/wk Hyperglycemia: + urinary frequency, +nocturia, +polydypsia Does not take a snack before bedtime Exercise: denies Ticket Printer - CDE education: in past Band Saw Operator Cake Cutting: in past Ophthalmology evaluation: last visit last wk Other specialists: customer contact representative, neurologist, Dr. Tang [facility] average glucose: [236] 14 day continuous glucose monitor report reviewed Glucose Managment indicator 9 % TIme in ranges: 42 % very high (above 250) 32 % high ?(181-250) 25 % in range ?(70-180] 1 % low (69-55) <1 % ?very low (below 54) Interpretation low in am around 6am high from 9-2 later in the jose david Symptoms reported: denies numbness, tingling, cramping in lower extremities Hypoglycemia: reports hypoglycemia 3 nights/wk Hyperglycemia: + urinary frequency, +nocturia, +polydypsia Does not take a snack before bedtime Exercise: denies Ticket Printer - CDE education: in past Band Saw Operator Cake Cutting: in past Ophthalmology evaluation: last visit 06/2024 Other specialists: customer contact representative, neurologist, Dr. Tang [facility] Medical History Heart palpitations Hypoglycemia due to insulin Elevated parathyroid hormone Osteoporosis Hyperlipidemia (04/21/1959) Depressive disorder (04/21/1959) Nutritional anemia (04/21/1959) Shortness of breath Hypothyroidism (04/21/1959) Anemia Chronic gastritis NSTEMI (non-ST elevated myocardial infarction) Recurrent falls (12/04/11) Iron deficiency anemia (04/21/1959) Fibromyositis (04/21/1959) Eczema (04/21/1959) High risk medication use Hepatitis C antibody positive in blood Screening for osteoporosis Screening for viral disease Joint swelling Overweight (BMI 25.0-29.9) Neck pain Swelling of knee joint, right Intra-abdominal abscess Diabetes Elevated liver function tests Intestinal malabsorption following gastrectomy Obesity (BMI 30-39.9) 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 Hypertension Cholecystitis Hyperlipidemia, unspecified Essential hypertension Atherosclerotic cardiovascular disease Fibromyalgia Folliculitis Anxiety Depression History of myocardial infarction Diabetes type 1, uncontrolled 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 Mother CVA (cerebral vascular accident) Sister Hypertension Brother Hypertension Liver cancer Social History Household Members: None Housing: Apartment Are you a primary child care supervisor to a significant other at home: No Do you presently have visiting nurse or other home services: Yes Unable to assess alcohol history related to: Unable to respond Alcohol intake: never Patient Tobacco Use Status: Never used Tobacco Use of substances other than those prescribed or required for medical reasons: No Have you been hit, kicked, punched, or otherwise hurt by someone within the past year? If so, by whom?: No Advance Directives: No Advance Directives Information Provided: No Advance Directives Date on File: 09/17/23 Do you have thoughts of harming others: None Do you have a plan to hurt others: No Plan Do you have the means to hurt others: No Recently lost weight without trying: No Eating poorly because of decreased appetite: Yes Patient : No service: No Current occupational status: disabled Current occupation: right hand dominant Physical Exam Vital Signs: Last Vital Signs Pulse 67 07/29/24 08:48 BP 128/56 L 07/29/24 08:48 Pulse Ox 98 07/29/24 08:48 Oxygen Delivery Method Room Air 07/29/24 08:48 BMI result Body Mass Index 30.7 Const Other: Absence of Cushingoid features. Absence of acromegalic features. Neck exam reveals nl size thyroid about 15 gms. No thyroid nodules palpable. Heart S1 S2, Reg R/R. No M/R G. Skin exam reveals absence of vitiligo or acanthosis nigricans. Results Reviewed Results Reviewed: Laboratory Last Values Glucose (Clinic) 265 mg/dL (60-115) H 07/29/24 08:53 Assessment & Plan Assessment & Plan (1) Diabetes type 1, uncontrolled: Comment: Doses of Tresiba over 19 units cause am lows! Code(s): E10.65 - Type 1 diabetes mellitus with hyperglycemia Category: Medical Qualifiers: Coma presence: without coma Glycemic state: with hypoglycemia Qualified Code(s): E10.649 - Type 1 diabetes mellitus with hypoglycemia without coma Plan: This is a 74-year-old female with history of type 1 diabetes being treated with basal-bolus insulin with poor glycemic control by HbA1c and known macrovascular complications namely CAD. There is significant [id number] and later in the evening with post-prandial spikes, am lows. Her glycemic control is limited by severe hypoglycemia in the past. New dosing: Tresiba 19 units Fiasp breakfast 80-100 3 units 101-150 6 units 151-200 7 units 201-250 8 units 250-300 9 units over 300 10 units Lunch and supper: 80-100 4 units 101-150 7 units 151-200 8 units 201-250 9 units lunch 8 supper 250-300 9 units over 300 10 units lunch after 1 week if readings elevatated after lunch increase by 1 unit The patient had an opportunity to ask questions regarding treatment plan. The patient expressed understanding and agreement with the above treatment plan. The patient is aware they should contact our office by phone for worsening glucose readings or for any low blood sugars which may warrant a change in diabetes medication. Compliance is encouraged with medications and any followup testing/consults which may have been ordered. Coding Level of Care Code Est Pt Level 3 (83166) Complex EM visit Add On G2211 Diagnoses Uncontrolled type 1 diabetes mellitus with hypoglycemia without coma E10.649 Coma presence: without coma Glycemic state: with hypoglycemia Time Spent (min) 15 Comment Time spent reviewing labs/provider notes, face to face, chart doc
[2024-07-29 08:48] VITALS: BP 128/56; PULSE 67; O2SAT 98; BMI 30.7
[2024-07-29 09:01] LABS: Glucose, Whole Blood 265 mg/dL (60-115)
--- OUTSIDE RECORDS SUMMARY | 2024-07-29 09:03 | XMS_ITS | Encounter Summary ---
Author Organization [employer] Address [address] [address] 7t [place] [address] Care Team Providers Care Transition Program Manager Name Role Phone Pascual Daly MD Primary Care Provide r Fani Heck PharmD Unavailable [phone] Reason for Visit * Reason Comments Med Refill Encounter Details Date Type Department Care Team ([facility] st Contact Info) Description 03/27/2023 Refill [facility] [address] [place] [address] Titi Gray FNP Major depressive disorder with [...] Care Team (Late st Contact Info) Description 08/12/2024 10:15 AM EDT Office Visit [facility] MEDICINE [address] [place] [address] Pascual Daly MD [address] [place] [address] 08/16/2024 11:00 AM EDT Medication Management [facility] MEDICINE [address] [place] [address] Dasia Waters, KristiD [address] [place] [address] 10/28/2024 10:30 AM EDT Clinical Support [facility] [address] [place] [address] Amanda Fernández, AALIYAH [address] [place] [address] documented as of this encounter Goals Goal [...] documented as of this encounter Care Teams Transition Program Manager Relationship Specialty Start Date End Date Pascual Daly MD [address] [place] [address] PCP - General Internal Medicine 02/22/14 Fani Hekc PharmD [address] [place] [address] Pharmacist Internal Medicine 12/16/22 documented as of this encounter
--- OUTSIDE RECORDS SUMMARY | 2024-07-29 09:04 | XMS_ITS | Data Portability ---
Author Organization [facility] [employer] [facility], Main Office Address [address] [place] [address] Care Team Providers Care Civil Engineering Assistant Name Role Phone MARII MASSEY Primary [facility] OTHER Assessment No assessment recorded. Plan of Treatment Reminders Order Date Submit Date Provider Last Modified By Organization Details Last Modified Time Details Appointments None recorded. Lab None recorded. Referral None recorded. Procedures None recorded. Surgeries None recorded. Imaging None recorded. Medication Orders oxycodone 5 mg tablet 2023 024 [facility] , [address] [place] [address], [address], 4 21:23:28 oxycodone 5 mg tablet 2023 024 [facility] , [address] [place] [address], [address], 4 13:28:18 Patient TargetsNo targets recorded. Patient InstructionsNo instructions recorded. Reason for Referral None Reported. Problems Name Problem SNOMED Code Status Onset Date Resolution Date Notes Provider Name and Address Organization Details Recorded Time Type 1 diabetes mellitus 64453610 Active 2023 Dori Pena NP 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, [address], [place], [address], [facility] [employer] 4 15:49:21 Hypertensive disorder 36047201 Active 2023 Dori Pena NP [address], [address], [place], [address], [employer] [facility] 4 15:49:57 Gastroesophage al reflux disease 405550465 Active 2023 Dori Pena NP [address], [address], [place], [address], [place] [facility] 4 15:51:24 Rheumatoid arthritis 93207463 Active 2023 Dori Pena NP [address], [address], [place], [address], [employer] [facility] 4 15:51:29 Mixed anxiety and depressive disorder 549354032 Active 2023 Dori Pena NP [address], [address], [place], [address], [place] - [facility] 4 15:51:45 Obesity 300058500 Active 2023 Dori Pena NP [address], [address], [place], [address], [facility] 4 15:51:51 Closed flail chest 161353270 Active 2023 Dori Pena NP [address], [place], [address], [facility] 4 15:52:35 Asthenia 75649100 Active 2023 Dori Pena NP [address], [place], [address], [facility] 4 15:52:46 Irritable bowel syndrome 70227951 Active 2023 Dori Pena NP [address], [address], [place], [address], [facility] 4 16:06:46 Recurrent falls 400774428 Active 2023 Dori Pena NP [address], [place], [address], [facility] 4 16:38:03 Problem Notes None recorded. Procedures Surgical History Date Name Laterality Status Provider Name and Address Organization Details Recorded Time bypass gastroenterostomy completed Dori Pena, AAKASH [address], [place], [address], [facility] 09/17/2023 15:40:41 Laparoscopic cholecystectomy completed Dori Pena NP [address], [address], [place], [address], [facility] 09/17/2023 15:41:25 fixed suspension procedure of urinary bladder neck completed Dori Pena NP [address], [place], [address], [facility] 09/17/2023 15:42:01 Appendectomy completed Dori Pena NP [address], [place], [address], [facility] 09/17/2023 15:42:11 bilateral cataract surgery completed Dori Pena NP [address], [address], [place], [address], [facility] 09/17/2023 15:42:26 Imaging Results None recorded. Procedure Notes None recorded. Medical Equipment None Reported. Allergies Allergen ID Allergen Name Allergen Category Reaction Reaction Severity Criticality Documentation Date Start Date Code Code System Note Provider Name and Address Organization Details Recorded Time 48892 celecoxib medicatio n other Not available unabletoasse 09/17/2023 70056 7 RxNorm unkno wn Not Available Not Available Not Available 72511 lorazepam medicatio n other [facility] 09/17/2023 6470 RxNorm unkno wn Not Available Not Available Not Available 80230 tramadol medicatio n other Not available unabletoasse 09/17/2023 62422 RxNorm unkno wn Not Available Not Available Not Available 06528 zolpidem medicatio n other Not available unabletoasse 09/17/2023 04917 RxNorm unkno wn Not Available Not Available [...] Address Organization Details Last Updated DateTime 4 80059.7 8 g 98 /min 18 /min 97.8 [degF] 94 % 94 % 150 mm[Hg] 77 mm[Hg] Dori Pena NP [address] [facility] [address], [place], [address], [employer] [facility] 4 10:49:41 Date Recorded Body weight Heart rate Respiratory rate Body temperature Oxygen saturation Oxygen saturation in Arterial blood by Pulse oximetry Systolic blood pressure Diastolic blood pressure Provider Name and Address Organization Details Last Updated DateTime 4 49297.7 8 g 83 /min 18 /min 97 [degF] 98 % 98 % 148 mm[Hg] 74 mm[Hg] Dori Pena NP [address] [facility] [address], [place], [address], [employer] [facility] 4 13:29:12 Date Recorded Body weight Heart rate Respiratory rate Body temperature Oxygen saturation Oxygen saturation in Arterial blood by Pulse oximetry Systolic blood pressure Diastolic blood pressure Provider Name and Address Organization Details Last Updated DateTime 4 76395.7 8 g 76 /min 18 /min 97.8 [degF] 97 % 97 % 128 mm[Hg] 78 mm[Hg] Dori Pena NP [address] [facility] [address], [place], [address], [employer] [facility] 4 12:05:35 Date Recorded Body weight Heart rate Respiratory rate Body temperature Oxygen saturation Oxygen saturation in Arterial blood by Pulse oximetry Systolic blood pressure Diastolic blood pressure Provider Name and Address Organization Details Last Updated DateTime 4 12532 g 80 /min 18 /min 98 [degF] 95 % 95 % 111 mm[Hg] 60 mm[Hg] Dori Pena NP [address] [facility] [address], [place], [address], [employer] 4 11:40:36 Date Recorded Body weight Heart rate Respiratory rate Body temperature Oxygen saturation Oxygen saturation in Arterial blood by Pulse oximetry Systolic blood pressure Diastolic blood pressure Provider Name and Address Organization Details Last Updated DateTime 4 03822 g 74 /min 18 /min 98.4 [degF] 95 % 95 % 124 mm[Hg] 68 mm[Hg] Dori Pena NP [address], [facility] [address], [place], [address], [employer] 4 13:12:09 Social History Question Answer Notes LastModified by Organizat ion Details LastModified Time Tobacco Smoking Status Never Smoker Dori Pena NP [address], [facility] [address], [place], [address], [employer] 09/17/2023 15:39:38 Do You Have An Advance [...] (RSV) vaccine, unspecified 4 completed Radha batista, [employer] 09/19/2023 16:11:12 Tdap 4 completed Radha Stoll null, [facility] 09/19/2023 16:11:26 Td(adult) unspecified formulation 3 completed Radha Jerman null, [facility] 09/19/2023 16:11:43 Td(adult) unspecified formulation 3 completed Radha Jerman null, [facility] 09/19/2023 16:11:51 Pneumococcal conjugate PCV 13 6 completed Radha Jerman null, [facility] 09/19/2023 16:12:53 Pneumococcal conjugate PCV20, polysaccharide [id number] conjugate, adjuvant, PF 4 completed Radha Stoll null, [facility] 09/19/2023 16:13:07 pneumococcal polysaccharide PPV23 1 completed Radha Stoll null, [facility] 09/19/2023 16:13:22 pneumococcal polysaccharide PPV23 4 completed Radha Jerman null, [facility] 09/19/2023 16:13:31 influenza, unspecified formulation 2 completed [facility] 16:13:47 influenza, unspecified formulation 3 completed Radha Jerman null, [facility] 09/19/2023 16:13:55 MMR 8 completed Radha Jerman [facility], [facility] 09/19/2023 16:14:21 SARS-COV-2 (COVID-19) vaccine, UNSPECIFIED 1 completed Radha Jerman null, [facility] 09/19/2023 16:15:58 SARS-COV-2 (COVID-19) vaccine, UNSPECIFIED 1 completed Radha Jerman null, [facility] 09/19/2023 16:16:13 SARS-COV-2 (COVID-19) vaccine, UNSPECIFIED 1 completed [facility] 16:16:27 SARS-COV-2 (COVID-19) vaccine, UNSPECIFIED 2 completed Radha Stoll [facility] 09/19/2023 16:17:15 SARS-COV-2 (COVID-19) vaccine, UNSPECIFIED 2 completed Radha Stoll [facility] 09/19/2023 16:21:38 zoster, unspecified formulation 5 completed Radha Stoll [facility] 09/19/2023 16:23:04 zoster, unspecified formulation 9 completed Radha [facility] 09/19/2023 16:23:18 zoster, unspecified formulation 9 completed [facility] 09/19/2023 16:25:18 Past Encounters Encounter ID Performer Location Encounter Start Date Encounter Closed Date Diagnosis/Indication Diagnosis SNOMED-CT Code Diagnosis ICD10 Code Diagnosis Note [id number] Dori Pena NP [address] [address] 09/17/2023 15:22:09 09/23/2023 14:50:24 Closed flail chest 770125596 S22.5XXD with multiple rib fractures and clavicular [...] If stable no further workup needed. Asthenia 17728666 R53.1 with notable weakness due to injuryPT OT eval and treatsuppo rtive caremonito r Type 1 frank betes mellitus 71926227 E10.9 tresiba 30 unit sc qhsinsulin 2-14 SSI sc qidhsmonit or BS and adjust as needed Hypertensive disorder 38 450042 I10 not on meds for thisamlodi pine 10 mg po dailylosar zaragoza 100 mg po dailymonit or bp/vitals 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 618348 E06.3 levothyrox ine 112 mcg dailymonit or tsh as needed Gastroesop hageal reflux disease 581606711 K21.9 esomeprazo le 40 mg o daily Obesity 154123657 E66.9 machinist brake to consultsup portive careportio n controlmon itor weight Mixed anxi ety and depressive disorder 373213012 F41.8 aripiprazo le 20 mg dailyvenla faxine 150 mg po dailyprazo sin 6 mg po qhsmelaton in 3 mg po qhshydroxy zine 10 mg po q 8 hours prn anxietyclo nazepam 0.5 mg po q 8 hours prn anxietycar vedilol 6.25 mg po bidmonitor Rheumatoid arthritis 698 77739 M06.9 enbrel 50 mg sc q 7dayscalci um citrate 400 mg po bidmonitor for reliefsee pain management above with flail chest Irritable bowel syndrome 05613455 K58.9 ? IBSlinzess 290 mcg q ammonitor Deficiency anemias 07773 3007 D53.9 folic acidvit m25jqoxrad Coronary arteriosclerosis 19662168 I25.10 hx of MIatorvast atin 20 mg po dailyclopi dogrel 75 mg po q amsee above htn medsmonito r Recurrent falls 81334547 2 R29.6 reports history of falls with machine setter sheet metal at home to help her and balance issuesrepo rts more than 5 falls/year supportive caremonito r [id number] JESSICA HINDS NP [place] [address] [place] [address] 09/18/2023 13:29:08 09/23/2023 15:13:15 Closed flail chest 213566043 S22.5XXD with multiple rib fractures and clavicular [...] If stable no further workup needed. Asthenia 94235908 R53.1 with notable weakness due to injuryPT OT eval and treatsuppo rtive caremonito r Type 1 frank betes mellitus 32025413 E10.9 A1C 8.8%Contin eu:tresiba 30 unit sc qhsinsulin 2-14 SSI sc qidmonitor BS and adjust as needed Hypertensive disorder 38 990425 I10 amlodipine 10 mg po dailylosar zaragoza 100 mg po dailycoreg 6.25 mg bidmonitor bp/vitals 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 598062 E06.3 levothyrox ine 112 mcg dailymonit or tsh as needed Gastroesop hageal reflux disease 602881533 K21.9 esomeprazo le 40 mg o daily Deficiency anemias 18842 3007 D53.9 folic acidvit u80hglvtzl Obesity 803557437 E66.9 machinist brake to consultsup portive careportio n controlmon itor weight Mixed anxi ety and depressive disorder 873727237 F41.8 aripiprazo le 20 mg dailyvenla faxine 150 mg po dailyprazo sin 6 mg po qhsmelaton in 3 mg po qhshydroxy zine 10 mg po q 8 hours prn anxietyclo nazepam 0.5 mg po q 8 hours prn anxietymon itor Rheumatoid arthritis 698 50784 M06.9 enbrel 50 mg sc q 7dayscalci um citrate 400 mg po bidmonitor for reliefsee pain management above with flail chest Irritable bowel syndrome 96498365 K58.9 ? IBSlinzess 290 mcg q ammonitor Coronary arteriosclerosis 60956776 I25.10 hx of MIatorvast atin 20 mg po dailyclopi dogrel 75 mg po q amsee above htn medsmonito r Recurrent falls 74966393 2 R29.6 reports history of falls with machine setter sheet metal at home to help her and balance issuesrepo rts more than 5 falls/year supportive caremonito r [id number] Dori Pena NP [facility] [address] [address] 09/22/2023 14:27:57 09/29/2023 19:16:34 Closed flail chest 019767391 S22.5XXD with multiple rib fractures and clavicular [...] If stable no further workup needed. Asthenia 71493206 R53.1 with notable weakness due to injuryPT OT eval and treatsuppo rtive caremonito r Type 1 frank betes mellitus 70430213 E10.9 BS 81-252 tkzswpK0A 8.8%contin ue:tresiba 30 unit sc qhsinsulin 2-14 SSI sc qidmonitor BS and adjust as needed Hypertensive disorder 38 847926 I10 improving lately, boderline highcontam lodipine 10 mg po dailylosar zaragoza 100 mg po dailycoreg 6.25 mg bidmonitor bp/vitals 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 043456 E06.3 contlevoth yroxine 112 mcg dailymonit or tsh as needed Gastroesop hageal reflux disease 608676215 K21.9 esomeprazo le 40 mg o daily Deficiency anemias 20147 3007 D53.9 folic acidvit p68xconhps Obesity 596243526 E66.9 machinist brake to consultsup portive careportio n controlmon itor weight Mixed anxi ety and depressive disorder 946434521 F41.8 contaripip razole 20 mg dailyvenla faxine 150 mg po dailyprazo sin 6 mg po qhsmelaton in 3 mg po qhshydroxy zine 10 mg po q 8 hours prn anxietyclo nazepam 0.5 mg po q 8 hours prn anxietymon itor Rheumatoid arthritis 698 87563 M06.9 enbrel 50 mg sc q 7dayscalci um citrate 400 mg po bidmonitor for reliefsee pain management above with flail chest Irritable bowel syndrome 74840683 K58.9 ? IBSlinzess 290 mcg q ammonitor Coronary arteriosclerosis 40468717 I25.10 hx of MIatorvast atin 20 mg po dailyclopi dogrel 75 mg po q amsee above htn medsmonito r Recurrent falls 39351646 2 R29.6 reports history of falls with machine setter sheet metal at home to help her and balance issuesrepo rts more than 5 falls/year supportive caremonito r Acute cystitis 90916185 N30.00 reports dysuria and occassiona l incontinen ce latelyurin e culture returned showing > 100,000 klebsiella pneumo ssp and started on ceftriaxon e 1gram IM and cefpodoxim e 200 mg po bid x 7 days with probiotic by on provider over the weekend.mo nitor [id number] Jonel Alamo MD [address] [address] 09/23/2023 11:01:43 09/29/2023 19:25:59 Closed fracture of multiple left ribs 0622724652 9060295 S22.42XG see HPIleft rib fxs 2-6 with concern for flail chest , with clavicular fxeval by surgery with no interventi on indicatedm onitor respirator y statusutil ize incentive spirometer monitor for pain controlupd ate surgery with concerns Asthenia 77542250 R53.1 PT OT eval and treatmonit or need for increased support in community Type 1 frank betes mellitus 43072804 E10.9 tresiba 30 units qdSS insulinmon itor glucose and need to titrate Hypertensive disorder 38 473223 I10 norvasc 10 mg qdcoreg 6.25 mg bidlosarta n 100 mg qdcurrentl y elevatedmo nitor need for increased control 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 293779 E06.3 hx of added to PMHmaintai priscilla onsynthroi d 112 mcg qdmonitor tsh prn Gastroesop hageal reflux disease 256526808 K21.9 nexium 40 mg qd continuedm onitor for effect Obesity 223835348 E66.09 dietary eval in patient with baseline DM Mixed anxi ety and depressive disorder 466671429 F41.8 carrying dx requiring multiple medication swill continue out patient medication s includinga bility and ativanmoni tor moodpsych eval prn Rheumatoid arthritis 698 98863 M06.9 remains onenbrel 50 mg q friday Irritable bowel syndrome 03922810 K58.9 ? IBSlinzess 290 mcg q ammonitor Coronary arteriosclerosis 54241909 I25.10 hx of MIatorvast atin 20 mg po dailyclopi dogrel 75 mg po q amsee above htn medsmonito r Recurrent falls 90200544 2 R29.6 reports history of falls with machine setter sheet metal at home to help her and balance issuesrepo rts more than 5 falls/year supportive caremonito r Solitary n odule of lung 378853573 R91.1 question right 4 mm upper lobe nodulecons ider repeat scan in 6-12 months Primary insomnia 0453145 F51.01 continue melatoninm onitor need to titrate Abnormal weight loss 267 793955 R63.4 weight dropped > 12 lbs in a few days from admitappea rs to be error in initial intake weightwill monitor Acute cystitis 76314197 N30.00 now on cefpodoxim e to complete coursemoni tor for recurrent disease [id number] Dori Pena NP [facility] [address] [place] [address] 09/24/2023 09:21:20 09/29/2023 19:39:42 Closed fracture of multiple left ribs 8292262783 5652904 S22.42XG with multiple rib fractures and clavicular [...] in am off pmadjust as needed. Asthenia 35086668 R53.1 PT OT eval and treatmonit or need for increased support in community Type 1 frank betes mellitus 24666753 E10.9 BS controlled conttresib a 30 units qdSS insulinmon itor glucose and need to titrate Hypertensive disorder 38 209169 I10 stable on below regimennor vasc 10 mg qdcoreg 6.25 mg bidlosarta n 100 mg qdcurrentl y elevatedmo nitor need for increased control 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 680210 E06.3 hx of added to PMHmaintai priscilla onsynthroi d 112 mcg qdmonitor tsh prn Gastroesop hageal reflux disease 458155977 K21.9 nexium 40 mg qd continuedm onitor for effect Obesity 596965536 E66.09 dietary eval in patient with baseline DM Rheumatoid arthritis 698 69487 M06.9 remains onenbrel 50 mg q friday Irritable bowel syndrome 20461505 K58.9 ? IBSlinzess 290 mcg q ammonitor Coronary arteriosclerosis 05823202 I25.10 hx of MIatorvast atin 20 mg po dailyclopi dogrel 75 mg po q amsee above htn medsmonito r Recurrent falls 97251678 2 R29.6 reports history of falls with machine setter sheet metal at home to help her and balance issuesrepo rts more than 5 falls/year supportive caremonito r Primary insomnia 0007740 F51.01 continueme latoninmon itor need to titrate Abnormal weight loss 267 093990 R63.4 weight dropped > 12 lbs in a few days from admitappea rs to be error in initial intake weight6/ reweigh pt todaywill monitor Acute cystitis 50173416 N30.00 now on cefpodoxim e to complete courseaysm ptomaticmo nitor for recurrent disease [id number] Dori Pena, AAKASH [facility] [address] [place] [address] 09/29/2023 10:39:23 10/03/2023 11:24:38 Closed fracture of multiple left ribs 7264024834 1962246 S22.42XG with multiple rib fractures and clavicular [...] to left shoulderad just as needed. Asthenia 31953221 R53.1 PT OT eval and treatmonit or need for increased support in community Type 1 frank betes mellitus 84320742 E10.9 BS controlled conttresib a 30 units qdSS insulinmon itor glucose and need to titrate Hypertensive disorder 38 092391 I10 stable on below regimen with slightly high bp likley related to pain, monitorcon tnorvasc 10 mg qdcoreg 6.25 mg bidlosarta n 100 mg qdcurrentl y elevatedmo nitor need for increased control 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 071242 E06.3 hx of added to PMHmaintai priscilla onsynthroi d 112 mcg qdmonitor tsh prn Gastroesop hageal reflux disease 878608454 K21.9 contnexium 40 mg qdmonitor for effect Obesity 390608537 E66.09 dietary evalbaseli ne DMweight today please Rheumatoid arthritis 698 20283 M06.9 remains onenbrel 50 mg q friday Irritable bowel syndrome 59133074 K58.9 ? IBSlinzess 290 mcg q ammonitor Coronary arteriosclerosis 51018451 I25.10 hx of MIatorvast atin 20 mg po dailyclopi dogrel 75 mg po q amsee above htn medsmonito r Recurrent falls 91915275 2 R29.6 reports history of falls with machine setter sheet metal at home to help her and balance issuesrepo rts more than 5 falls/year supportive caremonito r Primary insomnia 2450191 F51.01 continueme latoninmon itor need to titrate Abnormal weight loss 267 806344 R63.4 weight dropped > 12 lbs in a few days from admitappea rs to be error in initial intake weight6/10 reweigh pt todaywill monitor Acute cystitis 13573934 N30.00 resolved cefpodoxim e to complete courseaysm ptomaticmo nitor for recurrent disease Mixed anxi ety and depressive disorder 767091165 F41.8 contaripip razole 20 mg dailyvenla faxine 150 mg po dailyprazo sin 6 mg po qhsmelaton in 3 mg po qhshydroxy zine 10 mg po q 8 hours prn anxiety6/1 0 renew clonazepam 0.5 mg po q 8 hours prn anxietymon itor [id number] [facility] [address] 10/02/2023 13:28:32 10/07/2023 10:08:18 Hypertensive disorder 92108085 I10 stable on below regimen as it comes down to 120s systolic post medication contnorvas c 10 mg qdcoreg 6.25 mg bidlosarta n 100 mg qdmonitor need for increased control Closed fra cture of multiple left ribs 6402765990 0130310 S22.42XG with left rib fxs 2-6 with [...] OT eval and txadjust as needed. Asthenia 73001425 R53.1 PT OT eval and treatmonit or need for increased support in community Type 1 frank betes mellitus 62418464 E10.9 BS controlled glucernaco nttresiba 30 units qdSS insulinmon itor glucose and need to titrate Gastroesop hageal reflux disease 673719014 K21.9 contnexium 40 mg qdmonitor for effect Rheumatoid arthritis 698 04289 M06.9 remains onenbrel 50 mg q friday Irritable bowel syndrome 96563058 K58.9 ? IBSlinzess 290 mcg q ammonitor Coronary arteriosclerosis 98294312 I25.10 hx of MIcoreg 6.25 mg po bidatorvas tatin 20 mg po dailyclopi dogrel 75 mg po q amsee above htn medsmonito r Recurrent falls 38567548 2 R29.6 reports history of falls with machine setter sheet metal at home to help her and balance issuesrepo rts more than 5 falls/year supportive care and therapy here for balance, strengthen ing, gait, mobility, endurancem onitor Abnormal weight loss 267 061898 R63.4 weight dropped > 12 lbs in a few days from admitappea rs to be error in initial intake weight09/28 reweigh pt today10/01 reweight pt today, no weight since 09/21will monitor Mixed anxi ety and depressive disorder 904637208 F41.8 contaripip razole 20 mg dailyvenla faxine 150 mg po dailyprazo sin 6 mg po qhsmelaton in 3 mg po qhshydroxy zine 10 mg po q 8 hours prn anxiety6/ 0 renew clonazepam 0.5 mg po q 8 hours prn anxiety x 14 days10/01 cont as abovemonit or [id number] Dori Pena NP [facility] [address] [facility] [place] [address] 10/06/2023 12:02:36 10/09/2023 09:34:42 Closed fracture of multiple left ribs 2398493223 4251733 S22.42XG with left rib fxs 2-6 with [...] txadjust as needed. Abnormal weight loss 267 959880 R63.4 weight dropped > 12 lbs in a few days from admitappea rs to be error in initial intake weight10/04 160 lbs which is same as 09/22/23will monitor Hypertensive disorder 38 717912 I10 stable on below regimen as it comes down to 120s systolic post medication contnorvas c 10 mg qdcoreg 6.25 mg bidlosarta n 100 mg qdmonitor need for increased control Asthenia 60302731 R53.1 PT OT eval and treatmonit or need for increased support in community Type 1 frank betes mellitus 95576728 E10.9 pt having syrup and gingerale at [...] and need to titrate Rheumatoid arthritis 698 54112 M06.9 remains onenbrel 50 mg q friday Irritable bowel syndrome 35917892 K58.9 with constipati on today, states many days10/05 mon given today, will do supp if no bm by 4 pm10/05 start senna 8.6 mg po daily? IBSlinzess 290 mcg q ammonitor Coronary arteriosclerosis 27590176 I25.10 hx of MIcoreg 6.25 mg po bidatorvas tatin 20 mg po dailyclopi dogrel 75 mg po q amsee above htn medsmonito r Mixed anxi ety and depressive disorder 547902841 F41.8 contaripip razole 20 mg dailyvenla faxine 150 mg po dailyprazo sin 6 mg po qhsmelaton in 3 mg po qhshydroxy zine 10 mg po q 8 hours prn anxiety09/19 0 renew clonazepam 0.5 mg po q 8 hours prn anxiety x 14 days10/01 cont as above10/05 stable today with above planmonito r [id number] [facility] [address] 10/08/2023 11:40:06 10/15/2023 15:50:32 Type 1 diabetes mellitus 12097624 E10.9 pt having syrup and gingerale at [...] and need to titrate Irritable bowel syndrome 44969907 K58.9 with constipati on resolved with mom on 7 mon given today10/05 start senna 8.6 mg po daily? IBSlinzess 290 mcg q am10/07 having bm regularly nowmonitor Closed fra cture of multiple left ribs [id number] 6655502 S22.42XG with left rib fxs 2-6 with [...] txadjust as needed. Abnormal weight loss 267 623405 R63.4 weight dropped > 12 lbs in a few days from admitappea rs to be error in initial intake weight10/04 160 lbs which is same as 09/22/23, ? incorrect admit [facility] but [facility] Hypertensive disorder 38 678318 I10 stable on below regimen as it comes down to 120s systolic post medication contnorvas c 10 mg qdcoreg 6.25 mg bidlosarta n 100 mg qdmonitor need for increased control Asthenia 24969534 R53.1 PT OT eval and treatmonit or need for increased support in community Rheumatoid arthritis 698 10749 M06.9 remains onenbrel 50 mg q friday Coronary arteriosclerosis 70643309 I25.10 hx of MIcoreg 6.25 mg po bidatorvas tatin 20 mg po dailyclopi dogrel 75 mg po q amsee above htn medsmonito r Mixed anxi ety and depressive disorder 145300963 F41.8 contaripip razole 20 mg dailyvenla faxine 150 mg po dailyprazo sin 6 mg po qhsmelaton in 3 mg po qhshydroxy zine 10 mg po q 8 hours prn anxiety/ 0 renew clonazepam 0.5 mg po q 8 hours prn anxiety x 14 days10/01 cont as above10/05 stable today with above plan10/07 stable today with above planmonito r Hyperkalemia 56757633 E8 7.5 k of 5.7 on give kayexalate 15 gm today10/08 bmp in ammonitor for additional e lyte abbormalit ies 525300 Dori Pena NP [address] [address] 10/09/2023 13:08:06 10/15/2023 16:27:22 Closed fracture of multiple left ribs [id number] 0937388 S22.42XG resolving with left rib fxs 2-6 [...] prnadjust as needed outpt with pcp Hyperkalemia 39727221 E8 7.5 k of 5.7 on give kayexalate 15 gm on 10/07monito r for additional e lyte abnormalit ies outpt with pcp Type 1 frank betes mellitus 70545709 E10.9 BS slightly high while at rehab with eating sugary foods/drin ksPlan: diet sodas and diet syrup and less sugary choicescon tglucernat resiba 30 units qdSS insulin with meals as per home schedmonit or glucose and need to titrate outpt with pcp outpt Irritable bowel syndrome 41233947 K58.9 with constipati on resolvedse nna 8.6 mg po daily (started at rehab)? IBSlinzess 290 mcg q ammonitor with pcp outpt Abnormal weight loss 267 693561 R63.4 weight dropped > 12 lbs in a few days from admitappea rs to be error in initial intake weight10/04 160 lbs which is same as 09/22/23, ? incorrect admit weight but seems stable nowmonitor oupt with pcp Hypertensive disorder 38 908262 I10 stable on below regimen as it comes down to 120s systolic post medication contnorvas c 10 mg qdcoreg 6.25 mg bidlosarta n 100 mg qdmonitor need for increased control outpt with pcp Asthenia 64588238 R53.1 PT OT eval and treat outpt prnmonitor need for increased support in community with pcp Rheumatoid arthritis 698 60033 M06.9 remains onenbrel 50 mg q fridaymoni tor outpt with pcp Coronary arteriosclerosis 03770446 I25.10 hx of MIcoreg 6.25 mg po bidatorvas tatin 20 mg po dailyclopi dogrel 75 mg po q amsee above htn medsmonito r outpt wtih pcp 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 contaripip razole 20 mg dailyvenla faxine 150 mg po dailyprazo sin 6 mg po qhsmelaton in 3 mg po qhshydroxy zine 10 mg po q 8 hours prn anxietyclo nazepam 0.5 mg po q 8 hours prn anxietymon itor outpt with pcp Gastroesop hageal reflux disease 297608447 K21.9 contnexium 40 mg qdmonitor for effect outpt with pcp Recurrent falls 61626056 2 R29.6 reports history of falls with machine setter sheet metal at home to help her and balance issuesrepo rts more than 5 falls/year supportive care and therapy here for balance, strengthen ing, gait, mobility, endurance outpt rpnmonitor outpt with pcp 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 394307 E06.3 hx of added to PMHmaintai priscilla onsynthroi d 112 mcg qdmonitor tsh prn with pcp Obesity 369728673 E66.09 dietary evalbaseli ne DMweight to be monitored with pcp outpt Primary insomnia 2285707 F51.01 continueme latoninmon itor need to titrate outpt Acute cystitis 29365651 N30.00 resolved cefpodoxim e to complete courseaysm ptomaticmo nitor for recurrent disease outpt with pcp Health Concerns Section Related Observation LastModified by Organization Detai ls LastModified Time None Recorded Concern Status LastModified by Organization Details LastModified Time None Recorded Advance Directives Directive N: Payers Encounter Date Sequence Insurance Name Policy Number Policy Patten Covered Member ID Patten Member ID Guarantor Name 09/29/2023 1 [facility] - DOS ON OR AFTER 2022 - [place]IC[place]/ADV ANTAGE - PPO) Brandie Luevano [id number] Brandie Luevano 10/02/2023 1 [facility] - DOS ON OR AFTER 2022 [place]/ADV ANTAGE - PPO) Brandie Luevano [id number] Brandie Luevano 10/06/2023 1 [facility] - DOS ON OR AFTER 2022 [place]/ADV ANTAGE - PPO) Brandie Tanga [id number] Brandie Luevano 10/08/2023 1 [facility] - DOS ON OR AFTER 2022 [place]/ADV ANTAGE - PPO) Brandie Luevano [id number] Brandie Luevano 10/09/2023 1 [facility] - DOS ON OR AFTER 2022 - [place]V ANTAGE - PPO) Brandie Luevano [id number] Brandie Luevano Notes Date Note Type Note [...] a cane usually Dori Pena, AAKASH [address], [address], [place], [address], [place] [employer] 09/29/2023 11:09:33 10/02/2023 text/html Pt is seen [...] is sitting up in bed with her WARD NURSE visiting. She has her sling in place [...] a cane usually Dori Pena, AAKASH [address], [address], [place], [address], [facility] [employer] 10/02/2023 13:48:50 10/06/2023 text/html Pt is seen for a n acute rounding visit. Brandie is working here at [facility] and is feeling good and more mobile lately with left sling in place. She continues with therapy and making gains. She was treated for a UTI when she first came to [facility] and denies any urinary symptoms. Nursing [...] a cane usually Dori Pena NP [address], [address], [place], [address], [employer] 10/06/2023 12:26:22 10/08/2023 text/html Pt is seen [...] in a sling for comfort. While at [facility]:She was treated for a UTI when she first came to [facility] and denies any urinary symptoms. Nursing [...] a cane usually Dori Pena NP [address], [address], [place], [address], [employer] 10/08/2023 12:05:52 10/09/2023 text/html Pt is seen [...] in a sling for comfort. While at [facility]:She was treated for a UTI when she first came to [facility] and denies any urinary symptoms. Nursing [...] a cane usually Dori Pena NP [address], [address], [place], [address], [facility] [employer] 10/09/2023 16:50:56 OBGyn Episode No OBEpisode recorded.
--- OUTSIDE RECORDS SUMMARY | 2024-07-29 09:04 | XMS_ITS | Encounter Summary ---
Author Organization [employer] Address [address] [facility] 7t [place] [address] Care Team Providers Care Club Manager Name Role Phone Pascual Daly MD Primary Care Provide r Fani Heck PharmD Unavailable [phone] Encounter Details Date Type Department Care Team ([facility] st Contact Info) Description 09/25/2023 Telephone [facility] [address] [place] [address] Pascual Daly MD [address] [place] [address] Social History Tobacco Use Types Packs/Day Years [...] Description 08/12/2024 10:15 AM EDT Office Visit [facility] [address] [place] [address] Pascual Daly MD [address] [place] [address] 08/16/2024 11:00 AM EDT Medication Management [facility] [address] [place] [address] Dasia Waters, KristiD [address] [place] [address] 10/28/2024 10:30 AM EDT Clinical Support [facility] [address] [place] [address] Amanda Fernández, RN [address] [place] [address] documented as of this encounter Goals Goal [...] documented as of this encounter Care Teams Club Manager Relationship Specialty Start Date End Date Pascual Daly MD [address] [place] [address] PCP - General Internal Medicine 02/22/14 Fani Heck PharmD [address] [place] [address] Pharmacist Internal Medicine 12/16/22 documented as of this encounter
--- OUTSIDE RECORDS SUMMARY | 2024-07-29 09:04 | XMS_ITS | Clinical Summary ---
Author Organization [address] [facility] Address [address] [place] [address] Phone Care Team Providers Care Clinical Research Nurse Name Role Phone Pascual Darnell MD Primary [...] Upcoming Encounters Date Type Department Care Team ([facility] Contact Info) Description 09/02/2024 10:30 AM EDT Consult Orthopedic Surgery [place] [address] [phone] Luciano Smith, DPM [address] [address] Health Maintenance Due Date Last Done Comments [...] age to complete this topic Meningococcal B Vaccine Aged Out No l onger eligible based on patient's age to complete [...] Group ID:[id number] Type:Not on file Address: [facility] [place] [address] Care Teams Clinical Research Nurse Relationship Specialty Start Date End Date Pascual Darnell MD [address] [place] [address] PCP - General Internal Medicine 06/18/24
--- OUTSIDE RECORDS SUMMARY | 2024-07-29 09:04 | XMS_ITS | Data Portability ---
Author Organization [employer] Address [address] [place] [address] Care Team Providers Care Supervisor Body Assembly Name Role Phone [facility] Referring Provider [phone] Assessment Encounter Date Assessment Date Assessment LastModified by Organization Details LastModified Time 04/11/2023 04/11/2023 I provided real -time medical direction via phone for this encounter, and was available for additional phone based assistance as needed. I have reviewed and agree with the Assessment and Plan as documented by the [employer]. Patient given the opportunity to ask questions. Advised to call for another visit over the weekend if not improving in 2 to 3 days however if develops CP/severe SOB/turning blue/uncontrolle d n/v/d or black/bloody emesis or stool/ AMS/ syncope/ hi fever unresponsive to APAP to call 911- verbalized understanding of instructions [email or web address] Not available 04/12/2023 10:53:05 Plan of Treatment [...] Not available Not available Not available 04/11/2023 [id number] RxNorm Anitha Camacho MD [address] [facility],[address], [place], [address] [facility] [employer] 3 14:49:47 4127 Celebrex medicatio n Not available Not available Not available 04/11/2023 [id number] RxNoalex Camacho MD [address] [facility],[address], [place], [address], [employer] 14:49:57 4128 tramadol medicatio n Not available Not available Not available 04/11/2023 [id number] RxGeovanny Camacho MD [address] [facility],[address], [place], [address], [employer] 14:50:04 Medications Name Sig Start Date Stop [...] Available Not Available No t Available FreeStyle Aurora Lite kit USE DIRECTED active Not Available [...] Updated DateTime 3 97 % 97 % 03338.5 36 g 18 /min 97.8 [degF] 88 /min 167 mm[Hg] 84 mm[Hg] Not Available [employer] - production 3 14:49:26 Social History None recorded. Functional Status None recorded. Mental Status None recorded. Family History Nothing Reported. Medical History No medical history recorded. Gynecological HistoryNo gynecological history recorded. Obstetrics History GPAL:G 0 P 0 0 0 0 Past Encounters Encounter ID Performer Location Encounter Start Date Encounter Closed Date Diagnosis/Indication Diagnosis SNOMED-CT Code Diagnosis ICD10 Code Diagnosis Note [id number] Anitha Camacho MD Main - [facility] [address] [place] [address] 04/11/2023 14:49:23 04/12/2023 10:53:58 Respiratory syncytial virus infection 21042383 B97.4 Continue medication s as prescribed ., [...] Patten Member ID Guarantor Name 04/11/2023 1 [facility] - DOS ON OR AFTER 2022 - DUAL ELIGIBLE - [employer] (MEDICARE REPLACEMENT/ADV ANTAGE - HMO) Brandie Santana [id number] Brandie Ryanyes Notes Date Note Type Note Provider Name and Address Organization Details Recorded Time 04/11/2023 text/html HPI: 73 year old, Martiniquais speaking member, F, with hx of DM, HTN, Asthma, Depression, hx of falls and chronic pain, reporting worsesing Productive cough, shortness of breath with activities and fatigue, worsening head aches, treated at [facility] ER on 04/10/23 and dx with RSV. Reported has fever and chills, believes her BP is high. Her AGRICULTURAL PLOW OPERATOR worker is with her and member asked [...] .................. .................. .................. .................. .................. .................. ............... [employer] Note From Teddy Miranda: Pt sts dis not call for [employer]. [facility] set up appt. Pt was in ER yesterday diagnosed with RSV treated RX for ventalin and prednisone. Pt denies cp sob fever nausea diarrhea. Baseline vitals assessed. Lungs clear. No edema. [facility] contacted ..pt declined benzonatate. Pt advised self care and continue with RX meds. Pt education on signs indicating the ER. [employer] Allergies: Lorazepam .................. .................. .................. .................. .................. .................. .................. ............... Disposition: Fulfilled Comments: Reviewed - Johana RNSEGMD: Patient seen yesterday evening [facility]. COvid negative per patient/ RSV +/She is using her albuterol every 4 hours. She is on prednisone. No nausea vomiting.Pat has hx that includes but not limited to: DM2/COPD/HTN/Fe deficiency anemia/hypothyroid ism/MDD with psychotic features/obesity status post laparoscopic gastrectomy/positi ve SUSAN/fibromyalgia. Anitha Camacho MD [address] [facility],[address], [place], [address], [place] [employer] 04/12/2023 10:53:56 OBGyn Episode No OBEpisode recorded.
--- OUTSIDE RECORDS SUMMARY | 2024-07-29 09:04 | XMS_ITS | Encounter Summary ---
Author Organization [employer] Address [address] [facility] 7t [place] [address] Care Team Providers Care Lemon Grower Name Role Phone Pascual Daly MD Primary Care Provide r Fani Heck PharmD Unavailable [phone] Reason for Visit * Reason Comments Med Refill Encounter Details Date Type Department Care Team (Late st Contact Info) Description 09/26/2023 Refill [facility] [address] [place] [address] Pascual Daly MD [address] [place], [place] [phone] Social History Tobacco Use Types Packs/Day Years [...] Description 08/12/2024 10:15 AM EDT Office Visit [facility] [address] [place] [address] Pascual Daly MD [address] [place] [address] 08/16/2024 11:00 AM EDT Medication Management [facility] [address] [place] [address] Dasia Waters PharmD [address] [place] [address] 10/28/2024 10:30 AM EDT Clinical Support [facility] [address] [place], [place] [phone] Amanda Fernández, RN [address] [place] [address] documented as of this encounter Goals Goal [...] documented as of this encounter Care Teams Lemon Grower Relationship Specialty Start Date End Date Pascual Daly MD [address] [place] [address] PCP - General Internal Medicine 02/22/14 Fani Heck, KristiD [address] [place] [address] Pharmacist Internal Medicine 12/16/22 documented as of this encounter
--- OUTSIDE RECORDS SUMMARY | 2024-07-29 09:04 | XMS_ITS | Encounter Summary ---
Author Organization [employer] Address [address] [facility] 7t [place] [address] Care Team Providers Care Dumpman Name Role Phone Pascual Daly MD Primary Care Provide r Fani Heck PharmD Unavailable [phone] Reason for Visit * Reason Comments Med Refill Encounter Details Date Type Department Care Team (Late st Contact Info) Description 08/26/[address] [facility] [address] [place] [address] Momo Rizo MD [address] [place] [address] Benign hypertension Social History Tobacco Use Types [...] Description 08/12/2024 10:15 AM EDT Office Visit [facility] [address] [place] [address] Pascual Daly MD [address] [place] [address] 08/16/2024 11:00 AM EDT Medication Management [facility] [address] [place] [address] Dasia Waters PharmD [address] [place] [address] 10/28/2024 10:30 AM EDT Clinical Support [facility] [address] [place] [address] Amanda Fernández, RN [address] [place] [address] documented as of this encounter Goals Goal [...] documented as of this encounter Care Teams Dumpman Relationship Specialty Start Date End Date Pascual Daly MD [address] [place] [address] PCP - General Internal Medicine 02/22/14 Fani Heck, KristiD [address] [place] [address] Pharmacist Internal Medicine 12/16/22 documented as of this encounter
--- OUTSIDE RECORDS SUMMARY | 2024-07-29 09:04 | XMS_ITS | Encounter Summary ---
Author Organization [employer] Address [address] [facility] 7t [place] [address] Care Team Providers Care Cpa Tax Name Role Phone Pascual Daly MD Primary Care Provide r Fani Heck PharmD Unavailable [phone] Reason for Visit * Reason Comments Med Refill Encounter Details Date Type Department Care Team (Late st Contact Info) Description 07/20/2023 Refill [facility] [address] [place] [address] Titi Gray FNP Major depressive disorder with [...] Description 08/12/2024 10:15 AM EDT Office Visit [facility] [address] [place] [address] Pascual Daly MD [address] [place] [address] 08/16/2024 11:00 AM EDT Medication Management [facility] [address] [place] [address] Dasia Waters PharmD [address] [place] [address] 10/28/2024 10:30 AM EDT Clinical Support [facility] [address] [place] [address] Amanda Fernández, AALIYAH 505 [place] [address] documented as of this encounter Goals Goal [...] documented as of this encounter Care Teams Cpa Tax Relationship Specialty Start Date End Date Pascual Daly MD [address] [place] [address] PCP - General Internal Medicine 02/22/14 Fani Heck PharmD [address] [place] [address] Pharmacist Internal Medicine 12/16/22 documented as of this encounter
--- OUTSIDE RECORDS SUMMARY | 2024-07-29 09:04 | XMS_ITS | Encounter Summary ---
Author Organization [employer] Address [address] [facility] 7t [place] [address] Care Team Providers Care Double End Production Grinder Name Role Phone Pascual Daly MD Primary Care Provide r Fani Heck PharmD Unavailable [phone] Encounter Details Date Type Department Care Team ([facility] st Contact Info) Description 09/25/2023 Telephone [facility] [address] [place] [address] Pascual Daly MD [address] [place] [address] Social History Tobacco Use Types Packs/Day Years [...] Description 08/12/2024 10:15 AM EDT Office Visit [facility] [address] [place] [address] Pascual Daly MD [address] [place] [address] 08/16/2024 11:00 AM EDT Medication Management [facility] [address] [place] [address] Dasia Waters, KristiD [address] [place] [address] 10/28/2024 10:30 AM EDT Clinical Support [facility] [address] [place] [address] Amanda Fernández, RN 505 [place] [address] documented as of this encounter Goals Goal Patient Goal Type Associated Problems Recent Progress Patient-Stated? Author Blood Pressure < 140/90 Blood Pressure 133/70( 025 11:28 AM EST) No Fani Heck, PharmD documented as of this encounter Visit Diagnoses Diagnosis Type 2 diabetes mellitus without complication, with long-term current use of insulin ([facility]) documented in this encounter Additional Health Concerns Assessment Noted Time PHQ-9 Depression Total Score: 11 06/10/ 024 10:24 AM EST documented as of this encounter Care Teams Double End Production Grinder Relationship Specialty Start Date End Date Pascual Daly MD [address] [place] [address] PCP - General Internal Medicine 02/22/14 Fani Heck PharmD [address] [place] [address] Pharmacist Internal Medicine 12/16/22 documented as of this encounter
--- OUTSIDE RECORDS SUMMARY | 2024-07-29 09:05 | XMS_ITS | Encounter Summary ---
Author Organization [employer] Address [address] [facility] 7t [place] [address] Care Team Providers Care Behavior Specialist Name Role Phone Pascual Daly MD Primary Care Provide r Fani Heck PharmD Unavailable [phone] Reason for Visit * Reason Comments Med Refill Encounter Details Date Type Department Care Team (Late Contact Info) Description 08/08/2022 Refill [facility] [address] [place] [address] Momo Rizo MD 230 [place] [address] Mild intermittent asthma without complication Social History [...] Department Care Team (Late Contact Info) Description 08/12/2024 10:15 AM EDT Office Visit [facility] [address] [place] [address] Pascual Daly MD 230 [place] [address] 08/16/2024 11:00 AM EDT Medication Management [facility] [address] [place] [address] Dasia Waters, KristiD 230 [place] [address] 10/28/2024 10:30 AM EDT Clinical Support [facility] [address] [place], [place] [phone] Amanda Fernández, RN 505 [place] [address] documented as of this encounter Goals Goal [...] documented as of this encounter Care Teams Behavior Specialist Relationship Specialty Start Date End Date Pascual Daly MD [address] [place] [address] PCP - General Internal Medicine 02/22/14 Fani Heck, KristiD [address] [place] [address] Pharmacist Internal Medicine 12/16/22 documented as of this encounter
--- OUTSIDE RECORDS SUMMARY | 2024-07-29 09:05 | XMS_ITS | Encounter Summary ---
Author Organization [employer] Address [address] [place] [address] 7t [place] [address] Care Team Providers Care Research Program Intern Name Role Phone Pascual Daly MD Primary Care Provide r Fani Heck PharmD Unavailable [phone] Encounter Details Date Type Department Care Team (Late st Contact Info) Description 03/11/2022 Abstract [facility] MEDICINE [address] [place] [phone] Pascual Daly MD [address] [place] [address] Social History Tobacco Use Types Packs/Day Years [...] Description 08/12/2024 10:15 AM EDT Office Visit [facility] MEDICINE [address] [place] [address] [phone] Pascual Daly MD 230 [place] [address] 08/16/2024 11:00 AM EDT Medication Management [facility] MEDICINE [address] [place] [address] [phone] Dasia Waters, KristiD 230 [place] [address] 10/28/2024 10:30 AM EDT Clinical Support [facility] MED & PEDS 505 [place] [address] Amanda Fernández, RN 505 [place] [address] documented as of this encounter Visit Diagnoses Not on filedocumented in this encounter Care Teams Research Program Intern Relationship Specialty Start Date End Date Pascual Daly MD 230 [place] [address] PCP - General Internal Medicine 02/22/14 Fani Heck, KristiD 230 [place] [address] Pharmacist Internal Medicine 12/16/22 documented as of this encounter
--- OUTSIDE RECORDS SUMMARY | 2024-07-29 09:05 | XMS_ITS | Encounter Summary ---
Author Organization [employer] Address 75 [facility] 7t [place] [address] Care Team Providers Care Hall Porter Name Role Phone Pascual Daly MD Primary Care Provide r Fani Heck PharmD Unavailable [phone] Reason for Visit * Reason Onset Date Comments Appointment Request 09/03/2022 Encounter Details Date Type Department Care Team ([facility] st Contact Info) Description 09/03/2022 Telephone [facility] MEDICINE 230 [place] [address] Pascual Daly MD 230 [place], [place] [phone] Appointment Request Social History Tobacco Use Types [...] Description 08/12/2024 10:15 AM EDT Office Visit [facility] MEDICINE [address] [place] [phone] Pascual Daly MD 230 [place] [address] 08/16/2024 11:00 AM EDT Medication Management [facility] MEDICINE [address] [place] [address] Dasia Waters PharmD 230 [place] [address] 10/28/2024 10:30 AM EDT Clinical Support [facility] MED [facility] PEDS 505 [place], [place] [phone] Amanda Fernández, RN 505 [place] [address] documented as of this encounter Goals Goal [...] documented as of this encounter Care Teams Hall Porter Relationship Specialty Start Date End Date Pascual Daly MD [address] [place] [phone] PCP - General Internal Medicine 02/22/14 Fani Heck PharmD [address] [place] [address] Pharmacist Internal Medicine 12/16/22 documented as of this encounter
--- OUTSIDE RECORDS SUMMARY | 2024-07-29 09:05 | XMS_ITS | Encounter Summary ---
Author Organization [employer] Address 75 [facility] 7t [place] [address] Care Team Providers Care Restorer [employer]s Name Role Phone Pascual Daly MD Primary Care Provide r Fani Heck PharmD Unavailable [phone] Reason for Visit * Reason Comments Med Refill Encounter Details Date Type Department Care Team ([facility] Contact Info) Description 07/16/2022 Refill [facility] MEDICINE 230 [place] [address] Pascual Daly MD [address] [place] [address] Social History Tobacco Use Types Packs/Day Years [...] Upcoming Encounters Date Type Department Care Team ([facility] Contact Info) Description 08/12/2024 10:15 AM EDT Office Visit [facility] MEDICINE 230 [place] [address] Pascual Daly MD [address] [place] [address] 08/16/2024 11:00 AM EDT Medication Management [facility] MEDICINE 230 [place] [address] Dasia Waters PharmD [address] [place] [address] 10/28/2024 10:30 AM EDT Clinical Support [facility]S 505 [place], [place] [phone] Amanda Fernández, RN 505 [place] [address] documented as of this encounter Goals Goal [...] documented as of this encounter Care Teams Restorer [employer] Relationship Specialty Start Date End Date [place] [address] PCP - General Internal Medicine 02/22/14 Fani Heck, PharmD [address] [place] [address] [phone] Pharmacist Internal Medicine 12/16/22 documented as of this encounter
--- OUTSIDE RECORDS SUMMARY | 2024-07-29 09:05 | XMS_ITS | Encounter Summary ---
Author Organization [employer] Address 75 [facility] 7t [place] [address] Care Team Providers Care Hat Designer Name Role Phone Pascual Daly MD Primary Care Provide r Fani Heck PharmD Unavailable [phone] Reason for Visit * Reason Comments Med Refill Encounter Details Date Type Department Care Team (Late st Contact Info) Description 01/01/2024 Refill [facility] 230 [place] [address] Momo Rizo MD [address] [place] [address] Social History Tobacco Use Types Packs/Day Years [...] your housing situation today? I have sarahy panotja 07/24/[address] you li [...] Description 08/12/2024 10:15 AM EDT Office Visit [facility] MEDICINE [address] [place] [address] Pascual Daly MD [address] [place] [address] 08/16/2024 11:00 AM EDT Medication Management [facility] MEDICINE [address] [place] [phone] Dasia Waters PharmD 230 [place] [address] 10/28/2024 10:30 AM EDT Clinical Support [facility] 505 [place] [address] Amanda Fernández, RN 505 [place] [address] documented as of this encounter Goals Goal [...] as of this encounter Care Teams Hat Designer Relationship Specialty Start Date End Date Pascual Daly MD 230 [place] [address] PCP - General Internal Medicine 02/22/14 Fani Heck PharmD 230 [place] [address] Pharmacist Internal Medicine 12/16/22 documented as of this encounter
--- OUTSIDE RECORDS SUMMARY | 2024-07-29 09:05 | XMS_ITS | Encounter Summary ---
Author Organization [employer] Address 75 [facility] 7t [place] [address] Care Team Providers Care Superintendent [employer]munition Storage Name Role Phone Pascual Daly MD Primary Care Provide r Fani Heck PharmD Unavailable [phone] Reason for Visit * Reason Comments Med Refill Encounter Details Date Type Department Care Team (Late st Contact Info) Description 03/04/2023 Refill [facility] MEDICINE [address] [place] [address] Pascual Daly MD 230 [place], [place] [phone] Type 2 diabetes mellitus without complication, with long-term current use of insulin ([facility]) Social History Tobacco Use [...] Description 08/12/2024 10:15 AM EDT Office Visit [facility] MEDICINE [address] [place] [address] Pascual Daly MD 230 [place] [address] 08/16/2024 11:00 AM EDT Medication Management [facility] MEDICINE 230 [place] [address] Dasia Waters PharmD 230 [place] [address] 10/28/2024 10:30 AM EDT Clinical Support [facility]S 505 [place] [address] Amanda Fernández, AALIYAH 505 [place] [address] documented as of this encounter Goals Goal Patient Goal Type Associated Problems Recent Progress Patient-Stated? Author Blood Pressure < 140/90 Blood Pressure 133/70( 025 11:28 AM EST) Fani Thomas, PharmD documented as of this encounter Visit Diagnoses Diagnosis Type 2 diabetes mellitus without complication, with long-term current use of insulin ([facility]) documented in this encounter Additional Health Concerns Assessment Noted Time PHQ-9 Depression Total Score: 9 02/25/20 23 11:02 AM EST documented as of this encounter Care Teams Superintendent Ammunition Storage Relationship Specialty Start Date End Date Pascual Daly MD 230 [place] [address] PCP - General Internal Medicine 02/22/14 Fani Heck PharmD 230 [place] [address] Pharmacist Internal Medicine 12/16/22 documented as of this encounter
--- OUTSIDE RECORDS SUMMARY | 2024-07-29 09:05 | XMS_ITS | Encounter Summary ---
Author Organization [employer] Address 75 [facility] 7t [place] [address] Care Team Providers Care Medical Records Clerk Name Role Phone Pascual Daly MD Primary Care Provide r Fani Heck PharmD Unavailable [phone] Encounter Details Date Type Department Care Team ([facility] st Contact Info) Description 07/29/2024 Orders Only GENERIC EXTERNAL DATA DEPARTMENT Provider, [...] Description 08/12/2024 10:15 AM EDT Office Visit [facility] MEDICINE [address] [place] [address] Pascual Daly MD 230 [place] [address] 08/16/2024 11:00 AM EDT Medication Management [facility] MEDICINE 230 [place] [address] Dasia [place], PharmD 230 [place] [address] 10/28/2024 10:30 AM EDT Clinical Support [facility] 505 [place], [place] [phone] Amanda Fernández, RN 505 [place] [address] documented as of this encounter Goals Goal Patient Goal Type Associated Problems Recent Progress Patient-Stated? Author Blood Pressure < 140/90 Blood Pressure 133/70( 025 11:28 AM EST) No Fani Heck, KristiD documented as of this encounter Procedures Procedure Name Priority Date/Time Associated Diagnosis Comments GLUCOSE, WHOLE BLOOD Routine 07/29/2024 8:53 AM EDT documented in this encounter Results * (ABNORMAL) Glucose, Whole Blood (07/29/2024 8:53 AM EDT) Glucose, Whole Blood 265(H) 60 - 115 mg/dL [facility] Comment:METER #: [id number] 5Testing performed in the Endocrinology Department [address] , [address], [facility]. 07/29/2024 8:53 AM EDT 07/29/2024 9:01 AM EDT us Generic External Data Provider LAB BLOOD ORDERAB LES Final Result [facility] [address] [place] [address] [phone] documented in this encounter Visit Diagnoses Not on filedocumented in this encounter Additional Health Concerns Assessment Noted Time PHQ-9 Depression Total Score: 9 01/29/20 24 11:00 AM EDT documented as of this encounter Care Teams Medical Records Clerk Relationship Specialty Start Date End Date Pascual Daly MD [address] [place] [address] PCP - General Internal Medicine 02/22/14 Fani Heck PharmD [address] [place] [phone] Pharmacist Internal Medicine 12/16/22 documented as of this encounter
--- OUTSIDE RECORDS SUMMARY | 2024-07-29 09:05 | XMS_ITS | Encounter Summary ---
Author Organization [employer] Address [address] [facility] [address] 7t [place] [address] Care Team Providers Care Riding Coach Name Role Phone Pascual Daly MD Primary Care Provide r Fani Heck PharmD Unavailable [phone] Encounter Details Date Type Department Care Team (Late st Contact Info) Description 03/05/2024 Refill [facility] MEDICINE 230 [place] [address] Jefry Chun Benign hypertension; Type 2 diabetes mellitus without complication, with long-term current use of insulin ([facility]) Social History Tobacco Use Types Packs/Day [...] 08/12/2024 10:15 AM EDT Office Visit [facility] MEDICINE [address] [place] [address] Pascual Daly MD 230 [place] [address] 08/16/2024 11:00 AM EDT Medication Management [facility] MEDICINE [address] [place] [phone] Dasia [place], KristiD 230 [place] [address] 10/28/2024 10:30 AM EDT Clinical Support [facility] 505 [place] [address] Amanda Fernández, AALIYAH [address] [place] [address] documented as of this encounter Goals Goal Patient Goal Type Associated Problems Recent Progress Patient-Stated? Author Blood Pressure < 140/90 Blood Pressure 133/70( 025 11:28 AM EST) Fani Thomas, KristiD documented as of this encounter Visit Diagnoses Diagnosis Benign hypertension Essential hypertension, benign Type 2 diabetes mellitus without complication, with long-term current use of insulin ([facility]) documented in this encounter Additional Health Concerns Assessment Noted Time PHQ-9 Depression Total Score: 9 01/29/20 24 11:00 AM EDT documented as of this encounter Care Teams Riding Coach Relationship Specialty Start Date End Date Pascual Daly MD 230 [place] [address] PCP - General Internal Medicine 02/22/14 Fani Heck, KristiD 230 [place] [address] Pharmacist Internal Medicine 12/16/22 documented as of this encounter
--- OUTSIDE RECORDS SUMMARY | 2024-07-29 09:05 | XMS_ITS | Clinical Summary ---
Author Organization [employer] Address [address] [facility] 7t [place] [address] Care Team Providers Care Chisel Mortiser Operator Name Role Phone Pascual Daly MD Primary Care Provide r Fani Heck PharmD Unavailable [phone] Allergies Active Allergy Reactions Criticality Noted Date [...] Active Continuous Glucose Sensor (Dexcom G7 Sensor) [facility] [place] Actemra ACTPen 162 MG/0.9ML solution [...] (10/21/2023 10:15 AM EDT): Patient [place] [facility] [place] after she presented to [place] emergency room due to left-sided chest discomfort as per patient she was visiting family in [place], on August 26 she turned in high [...] (08/27/2022 10:19 AM EDT): followed by a screw machine hand. 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 - Follow-up in [facility] in November. Repeat BMP and A1c prior [...] She is under the care of Supervisor Rol[employer] Dr Sprague, last seen 12/31/2023 On a [...] She is under the care of Supervisor [employer] Dr Sprague, last seen 10/16/2023 On a [...] She is under the care of Supervisor Rol[employer] Dr Sprague, has a follow up with [...] She is under the care of Supervisor [employer] Dr Sprague, has a follow up at [...] was referred to Dr. Manjinder Gonsales at [facility] [place] as her medical insurance recommended this referral. [...] LDL-C. Melquiades WALLACE et al. TEN. 2013;310(19): 8123-7024 (http://education.[employer]fie.[employer]/faq/ODQ638) Chol/HDLC Ratio <5.0 (calc) 4.2 3.7 2.5 [...] Encounters Date Type Department Care Team Description 07/29/2024 Orders Only GENERIC EXTERNAL DATA DEPARTMENT Provider, Generic External Data 07/22/2024 10:30 AM EDT Clinical Support [facility] MED & PEDS [address] [place] [address] Amanda Fernández RN Fibromyalgia (Primary Dx); Long-term current use of opiate analgesic 07/22/2024 Telephone [facility] MED & PEDS [address] [place] [address] Amanda Fernández RN 07/22/2024 Travel 07/21/2024 Orders Only [facility] [address] [facility] [place] [address] Pascual Daly MD Type 2 diabetes mellitus without complication, with long-term current use of insulin (CMS/[facility]) (Primary Dx) 07/21/2024 Telephone [facility] [address] [facility] [place] [address] Pascual Daly MD 07/14/2024 Telephone [facility] [address] [facility] [place] [address] Pascual Daly MD Chart Prep 07/07/2024 Refill [facility] [address] [facility] [place] [address] Pascual Daly MD Fibromyalgia 07/07/2024 Orders Only GENERIC EXTERNAL DATA DEPARTMENT Provider, Generic External Data 06/22/2024 Refill [facility] [address] [facility] [place] [address] Pascual Daly MD Pain 06/15/2024 Orders Only GENERIC EXTERNAL DATA DEPARTMENT Provider, Generic External Data 06/10/2024 Refill [address] [facility] [address] [facility] [place] [address] Pascual Daly MD Fibromyalgia 06/04/2024 Orders Only GENERIC EXTERNAL DATA DEPARTMENT Provider, Generic External Data 05/31/2024 Refill [facility] [address] [facility] [place] [address] Nikia Jeter MD Type 2 diabetes mellitus without complication, with long-term current use of insulin (CMS[facility]); Benign hypertension 05/24/2024 Refill [facility] [address] [facility] [place] [address] Pascual Daly MD Benign hypertension 05/18/2024 Orders Only GENERIC EXTERNAL DATA DEPARTMENT Provider, Generic External Data 05/13/2024 Telephone [facility] MEDICINE [address] [place] [address] Pascual Daly MD Med Refill 05/13/2024 Refill [facility] MEDICINE [address] [facility] [place], [place] [phone] Pascual Daly MD Fibromyalgia 05/05/2024 11:30 AM EST Office Visit [facility] ADULT DENTAL [address] [place], [place] [phone] Santizo-Mckeon, Ammy, DDS Aphthous ulcer (Primary Dx) 05/04/2024 10:15 AM EST Office Visit [facility] MEDICINE [address] [place], [place] [phone] Pascual Daly MD Type 2 diabetes mellitus without complication, with long-term current use of insulin ([facility]) (Primary Dx); Primary hypertension; Mixed hyperlipidemia; Recurrent falls 05/04/2024 Travel from Last 3 Months Immunizations Name [...] Description 08/12/2024 10:15 AM EDT Office Visit [facility] MEDICINE [address] [place] [phone] Pascual Daly MD 230 [place] [address] 08/16/2024 11:00 AM EDT Medication Management [facility] MEDICINE [address] [place] [address] Dasia Waters, PharmD 230 [place] [address] 10/28/2024 10:30 AM EDT Clinical Support [facility] MED & PEDS 505 [place] [address] Amanda Fernández, RN 505 [place] [address] Health Maintenance Due Date Last Done Comments [...] exists SDOH Screening 07/23/2024 07/24/2023 Depression Monitoring 07/29/2024 01/29/2024, 024 Diabetes: Hemoglobin A1C 08/02/2024 025, 02/17/2024, 01/29/2024, [...] WHOLE BLOOD Routine 07/29/2024 8:53 AM EDT POCT HEATHER-14 URINE DRUG SCREEN Routine 07/22/2024 [...] with long-term current use of insulin (CMS/HCC) LIPID PANEL, STANDARD Routine 10/31/2023 10:42 AM EDT ALBUMIN, RANDOM URINE W/CREATININE Routine 07/02/2023 10:06 AM EDT BI MAMMOGRAM SCREENING TOMOSYNTHESIS BILATERAL Routine 06/05/2023 11:00 AM EST HEPATITIS C VIRAL RNA GENOTYPE, LIPA Routine 01/15/2023 11:08 AM EDT HM COLONOSCOPY Routine 03/20/2018 from Last 3 Months or Most Recently Relevant to Health Maintenance Results * (ABNORMAL) Glucose, Whole Blood (07/29/2024 8:53 AM EDT) Only the most recent of5 resultswithin the time period is included. Glucose, Whole Blood 265(H) 60 - 115 mg/dL [facility] Comment:METER #: [id number] 5Testing performed in the Endocrinology Department [address] , [address], [facility]. 07/29/2024 8:53 AM EDT 07/29/2024 9:01 AM EDT us Generic External Data Provider LAB BLOOD ORDERAB LES Final Result [facility] [address] [place] [address] [phone] * POCT HEATHER-14 Urine Drug Screen (07/22/2024 10:33 AM EDT) Oxycodone Screen, Urine Positive Urine Urine specimen obtained by clean catch procedure / Unknown 07/22/2024 10:33 AM EDT Narrative Amanda Fernández RN - 07/22/2024 10:33 AM EDT Lot# [id number] Exp: 12-08-25 us Pascual Terry MD POINT OF CARE TEST EN TER/EDIT ORDERABLES Final Result * Alkaline Phosphatase, Bone Specific (06/15/2024 11:09 AM EST) Alkaline Phosphatase, Bone Specific 13.2 5.6 - 29.0 mcg/L [facility] Comment:Reference Range, Pre menopausal (mcg/L) 35-45 years 5.0-18.2THIS TEST WAS PERFORMED AT:[employer] [id number] [place] [address]RFUNCOJ W. MASON,MD,PHD 06/15/2024 11:0 9 AM EST 06/15/2024 11:13 AM EST Generic External Data Provider LAB BLOOD ORDERAB LES Final Result Performing Organization Address City/[facility]/ZIP Co de Phone Number [facility] [address] [place] [address] [phone] * (ABNORMAL) PTH, Intact Without Calcium (06/15/2024 11:09 AM EST) Parathyroid Hormone, Intact 101.8(H) 8.7 - 77.1 pg/mL [facility] 06/15/2024 11:0 9 AM EST 06/15/2024 11:13 AM EST Generic External Data Provider LAB BLOOD ORDERAB LES Final Result Performing Organization Address City/[facility]/ZIP Co de Phone Number [facility] [address] [place] [phone] * Calcium, Ionized (06/15/2024 11:09 AM EST) Calcium, Ionized 5.3 4.7 - 5.5 mg/dL [facility] Comment:THIS TEST WAS PERFOR MED AT:[address] [place] [phone] HURLEY MD 06/15/2024 11:0 9 AM EST 06/15/2024 11:13 AM EST us Generic External Data Provider LAB BLOOD ORDERAB LES Final Result [facility] [address] [place] [address] [phone] * (ABNORMAL) POCT HGB A1C (05/04/2024 10:16 AM EST) Hemoglobin A1C 8.9(A) 4.0 - 6.0 % QC Media Lot # [id number] Lot# Expiration Date , Blood 05/04/2024 10:1 6 AM EST Pascual Terry MD POINT OF CARE TEST ENTER/EDIT ORDERABLES Edited Result - Final * (ABNORMAL) POCT Glucose (05/04/2024 10:16 AM EST) Pathologist [facility] Glucose Blood, POC 270(A) 60 - 200 mg/dL QC Media Lot # [id number] Lot# Expiration Date ,025 Blood Capillary blood specimen / Unknown 05/04/2024 10:16 AM EST Pascual Terry MD POINT OF CARE TEST EN TER/EDIT ORDERABLES Final Result * (ABNORMAL) Lipid Panel, Standard (10/31/2023 10:42 AM EDT) Triglycerides 74 <150 mg/dL [facility] Comment:Desirable Triglyceri de: less than 150 mg/dLBorderline High Triglyceride 150-199 mg/dLHigh Triglyceride: 200-499 mg/dLVery High Triglyceride: greater than or equal to 5OO mg/dL Cholesterol 95 <200 mg/dL [facility] Comment:Desirable Cholestero l: less than 200 mg/dLBorderline High Cholesterol: 200-239 mg/dLHigh Cholesterol: greater than 239 mg/dL LDL Cholesterol Calculated 43 <100 mg/dL [facility] Comment:Desirable LDL: less than 100 mg/dLNear Optimal/Above Optimal LDL: 110- 129 mg/dLBorderline High LDL: 130-159 mg/dLHigh LDL: 160-189 mg/dLVery High LDL: greater than or equal to 190 mg/dL HDL Cholesterol 38(L) >40 mg/dL [facility] Comment:Desirable HDL: great er than 40 mg/dL Note: This HDL assay may give artificially low results in patients with liver disease. 10/31/2023 10:4 2 AM EDT 10/31/2023 10:42 AM EDT us Generic External Data Provider LAB BLOOD ORDERAB LES Final Result Performing Organization Address [facility] de Phone Number [facility] [address] [place] [phone] * (ABNORMAL) Albumin, Random Urine W/Creatinine (07/02/2023 10:06 AM EDT) Creatinine, Urine 163.81 mg/dL [facility] Microalbumin Urine 59.0 mg/L [facility] Microalbum Creatinine Ratio Ur 36.0(H) <30 ug/mg cr [facility] Comment:Albumin/Creatinine R atio Reference Ranges: Normal: < 30 ug/mg creatinine Microalbuminuria: 30 - 300 ug/mg creatinineClinical Albuminuria: > 300 ug/mg creatinine 07/02/2023 10:0 6 AM EDT 07/02/2023 11:41 AM EDT us Generic External Data Provider LAB URINE ORDERAB LES Final Result Performing Organization Address [facility]/ZIP Co de Phone Number [facility] [address] [place] [phone] * BI Mammogram Screening Tomosynthesis Bilateral (06/05/2023 11:00 AM EST) Anatomical Region Laterality Modality Breast Bilateral Mammography 06/05/2023 11:0 0 AM EST Narrative 07/01/2023 11:45 AM EDT ? [facility] ? [address] ?[place], [place] [address] ? Mammography Report ? Signed ? Patient: Max,Brandie ?MR#: [id number] ? : 1950 ?Acct:[id number] ? Age/Sex: 73 / F ?ADM Date: 06/05/23 ? Loc: HO.MAMMO ? Attending Dr: Briseiad Rocha MD ? Ordering Physician: Aj,Briseida MD ?Results: 1Negat ?? juaquin ? Date of Service: 06/05/23 ?Follow Up: 1 Year From Orig ?? inal Mammogram ? Procedure(s): MM tomosynthesis screening BI ?? Accession Number(s): [id number] ? cc: Pascual Darnell MD; Briseida Rocha [...] 1141 ? DD/ 1100 ? TD/TT: ? Hr Specialist: ? Procedure Note Silvestre, Image - 07/01/2023 [facility] [address] [place] [address] Mammography Report Signed Patient: Dino Santana#: [id number] : 1950Acct:[id number] Age/Sex: 73 / FADM Date: 06/05/23 Loc: [facility] Attending Dr: Briseida Rocha MD Ordering Physician: Briseida Rocha MDResults: 1Negat juaquin Date of Service: 06/05/23Follow Up: 1 Year From Orig inal Mammogram Procedure(s): MM tomosynthesis screening BI Accession Number(s): [id number] cc: Pascual Darnell MD; Briseida Rocha MD [...] in OV> 07/01/23 1141 DD/ 1100 TD/TT: Hr Specialist: [facility] External Provider IMG BI PROCEDURES Final Result * Hepatitis C Viral RNA, Genotype, LiPA (01/15/2023 11:08 AM EDT) Hepatitis C Genotype Not Detected [facility] Comment: Genotype not detected due [...] characteristics of thisassay have been determined by [facility] [employer] [place], [place]. ??The modificationshave not been cleared or approved by the FDA. ??Thisassay has been validated pursuant to the CLIAregulations and is used for clinical purposes.For additional information, please refer tohttp://education.[employer]/faq/HCVGenotyping(This link is being provided for informational/educational purposes only.)THIS TEST WAS PERFORMED AT:[employer] [id number] [place] [address]EEPLIOLJOHN CORDON MD,PHD 01/15/2023 11:0 8 AM EDT 01/15/2023 11:08 AM EDT [facility] External Provider LAB BLO OD ORDERABLES Final Result [facility] [address] [place] [address] [phone] * Colonoscopy (03/20/2018) Colonoscopy Normal Normal 03/20/2018 Narrative Sondra Rowe - 03/20/2018 9:09 AM EST Recommended 10 year follow up Historical Provider MD HEALTH MAINTENANCE Edited Result - Final from Last 3 Months or Most Recently Relevant to Health Maintenance Insurance [facility] Care Teams Chisel Mortiser Operator Relationship Specialty Start Date End Date Pascual Daly MD [address] [place] [address] PCP - General Internal Medicine 02/22/14 Fani Heck PharmD [address] [place] [address] Pharmacist Internal Medicine 12/16/22
--- OUTSIDE RECORDS SUMMARY | 2024-07-29 09:05 | XMS_ITS | Encounter Summary ---
Author Organization [employer] Address [address] [facility] 7t [place] [address] Care Team Providers Care Student Outreach Coordinator Name Role Phone Pascual Daly MD Primary Care Provide r Fani Heck PharmD Unavailable [phone] Reason for Visit * Reason Comments Med Refill Encounter Details Date Type Department Care Team (Late Contact Info) Description 10/02/2022 Refill [facility] MEDICINE [address] [place] [address] Titi Gray FNP Major depressive disorder with [...] Description 08/12/2024 10:15 AM EDT Office Visit [facility] MEDICINE [address] [place], [place] [phone] Pascaul Daly MD [address] [place], [place] [phone] 08/16/2024 11:00 AM EDT Medication Management [facility] MEDICINE [address] [place] [address] Dasia Waters, Woody [address] [place], [place] 10/28/2024 10:30 AM EDT Clinical Support [facility] MED & PEDS [address] [place] [address] Amanda Fernández, RN [address] [place] [address] documented as of this encounter Goals Goal [...] as of this encounter Care Teams Student Outreach Coordinator Relationship Specialty Start Date End Date Pascual Daly MD [address] [place] [address] PCP - General Internal Medicine 02/22/14 Fani Heck PharmD [address] [place] [address] Pharmacist Internal Medicine 12/16/22 documented as of this encounter
--- OUTSIDE RECORDS SUMMARY | 2024-07-29 09:05 | XMS_ITS | Encounter Summary ---
Author Organization [email or web address] Address [address] [facility] 7t [place] [address] Care Team Providers Care Co Director Name Role Phone Pascual Daly MD Primary Care Provide r Fani Heck PharmD Unavailable [phone] Reason for Visit * Reason Onset Date Comments FYI 12/31/2023 Encounter Details Date Type Department Care Team ([facility] st Contact Info) Description 12/31/[address] [facility] MEDICINE [address] [place] [address] Pascual Daly MD [address] [place], [place] [phone] Social History Tobacco Use Types Packs/Day Years [...] any questions you can contact Franky at [phone]. documented in this encounter Plan of Treatment Upcoming Encounters Date Type Department Care Team (Late st Contact Info) Description 08/12/2024 10:[address]T [address] [facility] MEDICINE [address] [place] [address] Pascual Daly MD [address] [place] [address] 08/16/2024 11:[address] ED[address] Med[address] [facility] MED[facility] [address] [place] [address] Dasia Waters, PharmD [address] [place] [address] 10/28/2024 10:30 AM EDT Clinical Support [facility] MED & PEDS [address] [place] [address] Amanda Fernández, RN [address] [place], [place] documented as of this encounter Goals [...] documented as of this encounter Care Teams Co Director Relationship Specialty Start Date End Date Pascual Daly MD [address] [place] [address] PCP - General Internal Medicine 02/22/14 Fani Heck, PharmD [address] [place] [address] Pharmacist Internal Medicine 12/16/22 documented as of this encounter
--- OUTSIDE RECORDS SUMMARY | 2024-07-29 09:05 | XMS_ITS | Encounter Summary ---
Author Organization [employer] Address [address] [facility] 7t [place] [address] Care Team Providers Care Crutcher Helper Name Role Phone Pascual Daly MD Primary Care Provide r Fani Heck PharmD Unavailable [phone] Encounter Details Date Type Department Care Team ([facility] Contact Info) Description 07/01/2022 Abstract [facility] [address] [place] [address] Pascual Daly MD [address] [place], [place] [phone] Social History Tobacco Use Types Packs/Day Years [...] Description 08/12/2024 10:15 AM EDT Office Visit [facility] MED[facility] [address] [facility] [place] [address] Pascual Daly MD [address] [facility] [place] 08/16/2024 11:00 AM EDT Medication Management [facility] MED[facility] 230 [facility] [place] [phone] Dasia Waters, PharmD [address] [facility] [place] [address] 10/28/2024 10:30 AM EDT Clinical Support [facility] MED & PEDS [address] [place], [place] [phone] Amanda Fernández, RN [address] [place], [place] documented as of this encounter Goals [...] documented as of this encounter Care Teams Crutcher Helper Relationship Specialty Start Date End Date Pascual Daly MD [facility] [place] PCP - General Internal Medicine 02/22/14 Fani Heck, PharmD [facility] [place] [address] Pharmacist Internal Medicine 12/16/22 documented as of this encounter
--- OUTSIDE RECORDS SUMMARY | 2024-07-29 09:05 | XMS_ITS | Encounter Summary ---
Author Organization [employer] Address [address] [facility] 7t [place] [address] Care Team Providers Care Fruit Canner Name Role Phone Pascual Daly MD Primary Care Provide r Fani Heck PharmD Unavailable [phone] Reason for Visit * Reason Onset Date Comments FYI 12/11/2023 Durable Medical Equipment 12/11/2023 Encounter Details Date Type Department Care Team (Late st Contact Info) Description 12/11/2023 Telephone [facility] MEDICINE [address] [place], [place] [phone] Pascual Daly MD [address] [place], [place] [phone] FYI ; Durable Medical Equipment Social History [...] DME scripts to be sent to [facility] which: [facility] bed Please fax over to [phone] documented in this encounter Plan of Treatment Upcoming Encounters Date Type Department Care Team (Late st Contact Info) Description 08/12/2024 10:15 AM EDT Office Visit [facility] MEDICINE [address] [place] [address] Pascual Daly MD [address] [place] [address] 08/16/2024 11:00 AM EDT Medication Management [facility] MED[facility]INE [address] [place] [address] Dasia Waters, Woody [address] [place] [address] 10/28/2024 10:30 AM EDT Clinical Support [facility] & PEDS [address] [place] [address] Amanda Fernández, RN [address] [place] [address] documented as of this encounter Goals Goal [...] documented as of this encounter Care Teams Fruit Canner Relationship Specialty Start Date End Date Pascual Daly MD [address] [place] [address] PCP - General Internal Medicine 02/22/14 Fani Heck, PharmD [address] [place] [address] Pharmacist Internal Medicine 12/16/22 documented as of this encounter
--- OUTSIDE RECORDS SUMMARY | 2024-07-29 09:05 | XMS_ITS | Encounter Summary ---
Author Organization [employer] Address [address] [facility] 7t [place] [address] Care Team Providers Care Notereader Name Role Phone Pascual Daly MD Primary Care Provide r Fani Heck PharmD Unavailable [phone] Reason for Visit * Reason Onset Date Comments Med Refill 10/11/2022 Encounter Details Date Type Department Care Team (Late st Contact Info) Description 10/11/2022 Telephone [facility] MEDICINE [address] [place] [address] Pascual Daly MD [address], [place] [phone] Med Refill Social History Tobacco Use Types [...] Description 08/12/2024 10:15 AM EDT Office Visit [facility] MEDICINE [address] [place] [address] Pascual Daly MD [address] [place] [address] 08/16/2024 11:00 AM EDT Medication Management [facility] MEDICINE [address] [place] [address] Dasia Waters PharmD [address] [place] [address] 10/28/2024 10:30 AM EDT Clinical Support [facility] MED & PEDS 505 [place], [place] [phone] Amanda Fernández, RN 505 [place] [address] documented as of this encounter Goals Goal [...] documented as of this encounter Care Teams Notereader Relationship Specialty Start Date End Date Pascual Daly MD [address] [place] [phone] PCP - General Internal Medicine 02/22/14 Fani Heck PharmD [address] [place] [address] Pharmacist Internal Medicine 12/16/22 documented as of this encounter
--- OUTSIDE RECORDS SUMMARY | 2024-07-29 09:05 | XMS_ITS | Encounter Summary ---
Author Organization [employer] Address [address] [facility] 7t [place] [address] Care Team Providers Care Salon Designer Name Role Phone Pascual Daly MD Primary Care Provide r Fani Heck PharmD Unavailable [phone] Encounter Details Date Type Department Care Team ([facility] Contact Info) Description 05/29/2022 Abstract [facility] MEDICINE [address] [place] [address] Pascual Daly MD [address] [place] [address] Social History Tobacco Use Types Packs/Day Years [...] Description 08/12/2024 10:15 AM EDT Office Visit [facility] 230 [facility] [place] [address] Pascual Daly MD 230 [facility] [place] [address] 08/16/2024 11:00 AM EDT Medication Management [facility] 230 [facility] [place] [address] Dasia Waters PharmD [address] [facility] [place] [address] 10/28/2024 10:30 AM EDT Clinical Support [facility] [address] [place], [place] [phone] Amanda Fernández, AALIYAH [address] [place], [place] documented as of this encounter Goals [...] documented as of this encounter Care Teams Salon Designer Relationship Specialty Start Date End Date Pascual Daly MD [place] PCP - General Internal Medicine 02/22/14 Fani Heck PharmD [facility] [place] [phone] Pharmacist Internal Medicine 12/16/22 documented as of this encounter
--- OUTSIDE RECORDS SUMMARY | 2024-07-29 09:05 | XMS_ITS | Encounter Summary ---
Author Organization [employer] Address 75 [facility] 7t [place] [address] Care Team Providers Care Director Craft Center Name Role Phone Pascual Daly MD Primary Care Provide r Fani Heck PharmD Unavailable [phone] Reason for Visit * Reason Comments Med Refill Encounter Details Date Type Department Care Team (Late st Contact Info) Description 10/21/2023 Refill [facility] MEDICINE 230 [place] [address] Titi Gray FNP Major depressive disorder with [...] Description 08/12/2024 10:15 AM EDT Office Visit [facility] MEDICINE [address] [place] [address] Pascual Daly MD 230 [place] [address] 08/16/2024 11:00 AM EDT Medication Management [facility] MED[facility]INE [address] [place] [address] Dasia Waters PharmD 230 [place] [address] 10/28/2024 10:30 AM EDT Clinical Support [facility] MED & PEDS 505 [place] [address] Amanda Fernández, AALIYAH 505 [place] [address] documented as of this encounter Goals Goal [...] as of this encounter Care Teams Director Craft Center Relationship Specialty Start Date End Date Pascual Daly MD 230 [place] [address] PCP - General Internal Medicine 02/22/14 Fani Heck PharmD 230 [place] [address] Pharmacist Internal Medicine 12/16/22 documented as of this encounter
--- OUTSIDE RECORDS SUMMARY | 2024-07-29 09:05 | XMS_ITS | Encounter Summary ---
Author Organization [employer] Address 75 [facility] 7t [place] [address] Care Team Providers Care Concrete Layer Name Role Phone Pascual Daly MD Primary Care Provide r Fani Heck PharmD Unavailable [phone] Reason for Visit * Reason Comments Med Refill Encounter Details Date Type Department Care Team (Late st Contact Info) Description 01/14/2024 Refill [facility] MED & PEDS [address] [place] [address] Pascual Daly MD 230 [place] [address] Fibromyalgia Social History Tobacco Use Types Packs/Day [...] Description 08/12/2024 10:15 AM EDT Office Visit [facility] MEDICINE [address] [place] [address] Pascual Daly MD 230 [place] [address] 08/16/2024 11:00 AM EDT Medication Management [facility] MEDICINE [address] [place] [address] Dasia Waters PharmD 230 [place] [address] 10/28/2024 10:30 AM EDT Clinical Support [facility] MED & PEDS 505 [place] [address] Amanda Fernández, RN 505 [place] [address] documented as of this encounter Goals Goal [...] documented as of this encounter Care Teams Concrete Layer Relationship Specialty Start Date End Date Pascual Daly MD 230 [place] [address] PCP - General Internal Medicine 02/22/14 Fani Heck PharmD 230 [place] [address] Pharmacist Internal Medicine 12/16/22 documented as of this encounter
--- OUTSIDE RECORDS SUMMARY | 2024-07-29 09:05 | XMS_ITS | Encounter Summary ---
Author Organization [employer] Address 75 [facility] 7t [place] [address] Care Team Providers Care Emergency Room Physician Name Role Phone Pascual Daly MD Primary Care Provide r Fani Heck PharmD Unavailable [phone] Reason for Visit * Reason Onset Date Comments Med Refill 01/13/2024 Encounter Details Date Type Department Care Team ([facility] st Contact Info) Description 01/13/2024 Telephone [facility] MEDICINE 230 [place] [address] Pascual Daly MD 230 [place], [place] [phone] Med Refill Social History Tobacco Use Types [...] immediate release tablet To be sent to: [facility] - [place], [place] - [address] [place] [address] documented in this encounter Plan of Treatment Upcoming Encounters Date Type Department Care Team ([facility] st Contact Info) Description 08/12/2024 10:15 AM EDT Office Visit [facility] MEDICINE [address] [place] [address] Pascual Daly MD 230 [place] [address] 08/16/2024 11:00 AM EDT Medication Management [facility] MEDICINE [address] [place] [address] Dasia Waters, KristiD 230 [place] [address] 10/28/2024 10:30 AM EDT Clinical Support [facility] MED & PEDS 505 [place] [address] Amanda Fernández, RN 505 [place] [address] documented as of this encounter Goals Goal [...] of this encounter Care Teams Emergency Room Physician Relationship Specialty Start Date End Date Pascual Daly MD 230 [place] [address] PCP - General Internal Medicine 02/22/14 Fani Heck, PharmD [address] [place] [address] Pharmacist Internal Medicine 12/16/22 documented as of this encounter
--- OUTSIDE RECORDS SUMMARY | 2024-07-29 09:05 | XMS_ITS | Encounter Summary ---
Author Organization [employer] Address [address] [place] [address] 7t [place] [address] Care Team Providers Care Delicatessen Manager Name Role Phone Pascual Daly MD Primary Care Provide r Fani Heck PharmD Unavailable [phone] Encounter Details Date Type Department Care Team (Late st Contact Info) Description 03/13/2022 Abstract [facility] MEDICINE [address] [place] [address] Provider, MD Bill Social History Tobacco Use [...] [facility] MED[facility]INE [address] [place] [address] Pascual Daly MD [address] [place] [address] 08/16/2024 11:00 AM EDT Medication Management [facility] MEDICINE [address] [place] [address] Dasia Waters, PharmD 230 [place] [address] 10/28/2024 10:30 AM EDT Clinical Support [facility] CHC MED & PEDS [address] [place] [address] Amanda Fernández, AALIYAH [address] [place], [place] documented as of this encounter Visit Diagnoses Not on filedocumented in this encounter Care Teams Delicatessen Manager Relationship Specialty Start Date End Date Pascual Daly MD [address] [place] [address] PCP - General Internal Medicine 02/22/14 Fani Heck, KristiD [address] [place] [address] Pharmacist Internal Medicine 12/16/22 documented as of this encounter
--- OUTSIDE RECORDS SUMMARY | 2024-07-29 09:05 | XMS_ITS | Encounter Summary ---
Author Organization [employer] Address [address] [place] [address] 7t [place] [address] Care Team Providers Care Chain Tender Name Role Phone Pascual Daly MD Primary Care Provide r Fani Heck PharmD Unavailable [phone] Encounter Details Date Type Department Care Team (Late st Contact Info) Description 03/11/2022 Abstract [facility] MEDICINE [address] [place] [address] Fani Heck, PharmD 230 [place] [address] Social History Tobacco Use Types Packs/Day Years [...] Description 08/12/2024 10:15 AM EDT Office Visit [facility] MEDICINE [address] [place] [address] [phone] Pascual Daly MD 230 [place] [address] 08/16/2024 11:00 AM EDT Medication Management [facility] MEDICINE [address] [place] [address] Dasia Waters, KristiD 230 [place] [address] 10/28/2024 10:30 AM EDT Clinical Support [facility] MED & PEDS 505 [place] [address] Amanda Fernández, RN 505 [place] [address] documented as of this encounter Visit Diagnoses Not on filedocumented in this encounter Care Teams Chain Tender Relationship Specialty Start Date End Date Pascual Daly MD 230 [place] [address] PCP - General Internal Medicine 02/22/14 Fani Heck, KristiD 230 [place] [address] Pharmacist Internal Medicine 12/16/22 documented as of this encounter
--- OUTSIDE RECORDS SUMMARY | 2024-07-29 09:05 | XMS_ITS | Encounter Summary ---
Author Organization [employer] Address 75 [facility] 7t [place] [address] Care Team Providers Care Bias Machine Operator Name Role Phone Pascual Daly MD Primary Care Provide r Fani Heck PharmD Unavailable [phone] Reason for Visit * Reason Comments Med Refill Encounter Details Date Type Department Care Team (Late st Contact Info) Description 10/21/2023 Refill [facility] MEDICINE 230 [place] [address] Titi Gray FNP Major depressive disorder with [...] 08/12/2024 10:15 AM EDT Office Visit [facility] MEDICINE [address] [place] [address] Pascual Daly MD 230 [place] [address] 08/16/2024 11:00 AM EDT Medication Management [facility] MEDICINE [address] [place] [address] Dasia Waters PharmD 230 [place] [address] 10/28/2024 10:30 AM EDT Clinical Support [facility] CHC MED & PEDS 505 [place] [address] Amanda Fernández, AALIYAH 505 [place] [address] documented as of this encounter Goals Goal [...] documented as of this encounter Care Teams Bias Machine Operator Relationship Specialty Start Date End Date Pascual Daly MD 230 [place] [address] PCP - General Internal Medicine 02/22/14 Fani Heck PharmD 230 [place] [address] Pharmacist Internal Medicine 12/16/22 documented as of this encounter
--- OUTSIDE RECORDS SUMMARY | 2024-07-29 09:05 | XMS_ITS | Encounter Summary ---
Author Organization [employer] Address 75 [facility] 7t [place] [address] Care Team Providers Care Radiological Defense Officer Name Role Phone Pascual Daly MD Primary Care Provide r Fani Heck PharmD Unavailable [phone] Encounter Details Date Type Department Care Team (Latest Contact Info) Description 05/26/2019 Abstract [facility] CONVERSIONS Dental, Provider, DDS Social [...] 10:15 AM EDT Office Visit [facility] MEDICINE [address] [place] [address] Pascual Daly MD [address] [place] [address] 08/16/2024 11:00 AM EDT Medication Management [facility] MEDICINE [address] [place] [address] Dasia Waters, PharmD 230 [place] [address] 10/28/2024 10:30 AM EDT Clinical Support [facility] CHC MED & PEDS [address] [place] [address] Amanda Fernández, RN [address] [place] [address] documented as of this encounter Visit Diagnoses Not on filedocumented in this encounter Care Teams Radiological Defense Officer Relationship Specialty Start Date End Date Pascual Daly MD [address] [place] [address] PCP - General Internal Medicine 02/22/14 Fani Heck PharmD [address] [place] [address] Pharmacist Internal Medicine 12/16/22 documented as of this encounter
--- OUTSIDE RECORDS SUMMARY | 2024-07-29 09:05 | XMS_ITS | Encounter Summary ---
Author Organization [employer] Address 75 [facility] 7t [place] [address] Care Team Providers Care Watch Train Inspector Name Role Phone Pascual Daly MD Primary Care Provide r Fani Heck PharmD Unavailable [phone] Encounter Details Date Type Department Care Team ([facility] Contact Info) Description 08/29/2022 Abstract [facility] MEDICINE 230 [place] [address] Pascual Daly MD 230 [place] [address] Social History Tobacco Use Types Packs/Day Years [...] Description 08/12/2024 10:15 AM EDT Office Visit [facility] MEDICINE 230 [place] [address] Pascual Daly MD 230 [facility] [place] [address] 08/16/2024 11:00 AM EDT Medication Management [facility] MEDICINE 230 [place] [address] Dasia Waters, PharmD 230 [place] [address] 10/28/2024 10:30 AM EDT Clinical Support [facility] CHC MED & PEDS 505 [place], [place] [phone] Amanda Fernández, RN 505 [place] [address] documented as of this encounter Goals Goal Patient Goal Type Associated Problems Recent Progress Patient-Stated? Author Blood Pressure < 140/90 Blood Pressure 133/70( 025 11:28 AM EST) No Fain Heck, KristiD documented as of this encounter [...] documented as of this encounter Care Teams Watch Train Inspector Relationship Specialty Start Date End Date Pascual aDly MD 230 [place], [place] [phone] PCP - General Internal Medicine 02/22/14 Fani Heck, Woody [address] [place] [address] Pharmacist Internal Medicine 12/16/22 documented as of this encounter
--- OUTSIDE RECORDS SUMMARY | 2024-07-29 09:05 | XMS_ITS | Encounter Summary ---
Author Organization [employer] Address 75 [facility] 7t [place] [address] Care Team Providers Care Technical Operations Specialist Name Role Phone Pascual Daly MD Primary Care Provide r Fani Heck PharmD Unavailable [phone] Reason for Visit * Reason Onset Date Comments FYI 11/06/2023 Encounter Details Date Type Department Care Team ([facility] st Contact Info) Description 11/06/2023 Telephone [facility] MEDICINE 230 [place] [address] Pascual Daly MD 230 [place], [place] [phone] I Social History Tobacco Use Types Packs/Day [...] - 11/06/2023 4:39 PM EDT Tc from [facility] Iker CORDERO PT informing pt has started services For PT 11/06/23 documented in this encounter Plan of Treatment Upcoming Encounters Date Type Department Care Team ([facility] st Contact Info) Description 08/12/2024 10:15 AM EDT Office Visit [facility] MEDICINE [address] [place] [address] Pascual Daly MD 230 [place] [address] 08/16/2024 11:00 AM EDT Medication Management [facility] MEDICINE [address] [place] [address] Dasia Waters, Woody 230 [place] [address] 10/28/2024 10:30 AM EDT Clinical Support [facility] CHC MED & PEDS 505 [place] [address] Amanda Fernández, RN 505 [place] [address] documented as of this encounter Goals Goal [...] documented as of this encounter Care Teams Technical Operations Specialist Relationship Specialty Start Date End Date Pascual Daly MD 230 [place] [address] PCP - General Internal Medicine 02/22/14 Fani Heck, PharmD [address] [place] [address] Pharmacist Internal Medicine 12/16/22 documented as of this encounter
--- OUTSIDE RECORDS SUMMARY | 2024-07-29 09:05 | XMS_ITS | Encounter Summary ---
Author Organization [employer] Address 75 [facility] 7t [place] [address] Care Team Providers Care Gag Writer Name Role Phone Pascual Daly MD Primary Care Provide r Fani Heck PharmD Unavailable [phone] Reason for Visit * Reason Comments Med Refill Encounter Details Date Type Department Care Team (Late Contact Info) Description 12/28/2022 Refill [facility] MEDICINE 230 [place] [address] Titi Gray FNP Major depressive disorder with [...] 08/12/2024 10:15 AM EDT Office Visit [facility] MEDICINE 230 [place], [place] [phone] Pascual Daly MD 230 [place] [address] 08/16/2024 11:00 AM EDT Medication Management [facility] MEDICINE 230 [place], [place] [phone] Dasia Waters PharmD 230 [place], [place] 10/28/2024 10:30 AM EDT Clinical Support [facility] CHC MED & PEDS 505 [place] [address] Amanda Fernández, RN 505 [place], [place] documented as of this encounter Goals [...] documented as of this encounter Care Teams Gag Writer Relationship Specialty Start Date End Date Pascual Daly MD [address] [place] [address] PCP - General Internal Medicine 02/22/14 Fani Heck PharmD [address] [place] [address] Pharmacist Internal Medicine 12/16/22 documented as of this encounter
--- OUTSIDE RECORDS SUMMARY | 2024-07-29 09:05 | XMS_ITS | Encounter Summary ---
Author Organization [employer] Address 75 [facility] 7t [place] [address] Care Team Providers Care Top Lift And Automatic Window Repairer Name Role Phone Pascual Daly MD Primary Care Provide r Fani Heck PharmD Unavailable [phone] Reason for Visit * Reason Onset Date Comments Med Refill 12/15/2023 Encounter Details Date Type Department Care Team ([facility] st Contact Info) Description 12/15/2023 Telephone [facility] MEDICINE 230 [place] [address] Pascual Daly MD 230 [place], [place] [phone] Med Refill Social History Tobacco Use Types [...] immediate release tablet To be sent to: [facility] - [place], [place] - [address] [place] [address] documented in this encounter Plan of Treatment Upcoming Encounters Date Type Department Care Team ([facility] st Contact Info) Description 08/12/2024 10:15 AM EDT Office Visit [facility] MEDICINE [address] [place] [address] Pascual Daly MD 230 [place] [address] 08/16/2024 11:00 AM EDT Medication Management [facility] MEDICINE [address] [place] [address] Dasia Waters, KristiD 230 [place] [address] 10/28/2024 10:30 AM EDT Clinical Support [facility] CHC MED & PEDS 505 [place] [address] Amanda Fernández, RN [address] [place] [address] documented as of this encounter Goals Goal [...] documented as of this encounter Care Teams Top Lift And Automatic Window Repairer Relationship Specialty Start Date End Date Pascual Daly MD [address] [place] [address] PCP - General Internal Medicine 02/22/14 Fani Heck, PharmD [address] [place] [address] Pharmacist Internal Medicine 12/16/22 documented as of this encounter
== END 2024-07-29 09:08 | disposition home or self-care (01) ==
LOC: HO.ENCR 08:44
PROVIDERS: PCP Internal Medicine; Visit Provider Nurse Practitioner Adult Health
DX: E10.649 Type 1 diabetes mellitus with hypoglycemia without coma (principal)
CPT/HCPCS: 99213; G2211

== ENCOUNTER → 2024-07-29 08:43 | Outpatient (BNVA) | payer OTHER, SELFPAY | PROVIDERS: PCP Internal Medicine; Visit Provider Nurse Practitioner Adult Health | DX: E10.65 Type 1 diabetes mellitus with hyperglycemia (principal); E10.649 Type 1 diabetes mellitus with hypoglycemia without coma; E78.5 Hyperlipidemia, unspecified; I10 Essential (primary) hypertension; E06.3 Autoimmune thyroiditis; Z79.4 Long term (current) use of insulin | CPT/HCPCS: 82947; 99212 ==

== ENCOUNTER 2024-08-02 10:57 | Outpatient (REF) | payer OTHER, SELFPAY ==
--- OUTSIDE RECORDS SUMMARY | 2024-08-02 12:54 | XMS_ITS | Encounter Summary ---
Author Organization [employer] Address [address] [facility] [address] 7t [place] [address] Care Team Providers Care Mortgage Loan Coordinator Name Role Phone Pascual Daly MD Primary Care Provide r Fani Heck PharmD Unavailable [phone] Reason for Visit * Reason Comments Med Refill Encounter Details Date Type Department Care Team ([facility] st Contact Info) Description 03/27/2023 Refill [facility] CHC MED & PEDS 505 [place] [address] Titi Gray FNP Major depressive disorder with [...] Description 08/12/2024 10:15 AM EDT Office Visit [facility] MEDICINE [address] [place] [address] Pascual Daly MD 230 [place] [address] 08/16/2024 11:00 AM EDT Medication Management [facility] MEDICINE [address] [place] [address] Dasia Waters, KristiD 230 [place] [address] 10/28/2024 10:30 AM EDT Clinical Support [facility] CHC MED & PEDS 505 [place] [address] Amanda Fernández, AALIYAH 505 [place] [address] documented as of this encounter Goals Goal [...] documented as of this encounter Care Teams Mortgage Loan Coordinator Relationship Specialty Start Date End Date Pascual Daly MD 230 [place] [address] PCP - General Internal Medicine 02/22/14 Fani Heck PharmD 230 [place] [address] Pharmacist Internal Medicine 12/16/22 documented as of this encounter
--- OUTSIDE RECORDS SUMMARY | 2024-08-02 12:55 | XMS_ITS | Encounter Summary ---
Author Organization [employer] Address 75 [facility] 7t [place] [address] Care Team Providers Care Quality Assurance Assistant Name Role Phone Pascual Daly MD Primary Care Provide r Fani Heck PharmD Unavailable [phone] Reason for Visit * Reason Comments Med Refill Encounter Details Date Type Department Care Team (Late st Contact Info) Description 07/20/2023 Refill [facility] MEDICINE 230 [place] [address] Titi Gray FNP Major depressive disorder with [...] 10:15 AM EDT Office Visit [facility] MEDICINE [address] [place] [address] Pascual Daly MD 230 [place] [address] 08/16/2024 11:00 AM EDT Medication Management [facility] MEDICINE [address] [place] [address] Dasia Waters PharmD 230 [place] [address] 10/28/2024 10:30 AM EDT Clinical Support [facility] MED & PEDS 505 [place] [address] Amanda Fernández, AALIYAH 505 [place] [address] documented as of this encounter Goals Goal Patient Goal Type Associated Problems Recent Progress Patient-Stated? Author Blood Pressure < 140/90 Blood Pressure 133/70( 025 11:28 AM EST) Fani Tohmas, KristiD documented as of this encounter Visit Diagnoses Diagnosis Major depressive disorder with psychotic features (CMS/HCC) documented in this encounter Additional Health Concerns Assessment Noted Time PHQ-9 Depression Total Score: 11 024 10:24 AM EST documented as of this encounter Care Teams Quality Assurance Assistant Relationship Specialty Start Date End Date Pascual Daly MD 230 [place] [address] PCP - General Internal Medicine 02/22/14 Fani Heck PharmD 230 [place] [address] Pharmacist Internal Medicine 12/16/22 documented as of this encounter
--- OUTSIDE RECORDS SUMMARY | 2024-08-02 12:55 | XMS_ITS | Encounter Summary ---
Author Organization [employer] Address 75 [facility] 7t [place] [address] Care Team Providers Care Garment Supervisor Name Role Phone Pascual Daly MD Primary Care Provide r Fani Heck PharmD Unavailable [phone] Reason for Visit * Reason Comments Med Refill Encounter Details Date Type Department Care Team (Late st Contact Info) Description 03/04/2023 Refill [facility] MEDICINE 230 [place] [address] Pascual Daly MD 230 [place], [place] [phone] Type 2 diabetes mellitus without complication, with long-term current use of insulin ([facility]) Social History Tobacco Use Types [...] Office Visit [facility] MEDICINE [address] [place] [address] Pascual Daly MD 230 [place] [address] 08/16/2024 11:00 AM EDT Medication Management [facility] MEDICINE [address] [place] [address] Dasia Waters PharmD 230 [place] [address] 10/28/2024 10:30 AM EDT Clinical Support [facility]C MED & PEDS 505 [place] [address] Amanda Fernández, AALIYAH 505 [place] [address] documented as of this encounter Goals Goal Patient Goal Type Associated Problems Recent Progress Patient-Stated? Author Blood Pressure < 140/90 Blood Pressure 133/70( 025 11:28 AM EST) Fani Thomas, PharmD documented as of this encounter Visit Diagnoses Diagnosis Type 2 diabetes mellitus without complication, with long-term current use of insulin ([facility]) documented in this encounter Additional Health Concerns Assessment Noted Time PHQ-9 Depression Total Score: 9 02/25/20 23 11:02 AM EST documented as of this encounter Care Teams Garment Supervisor Relationship Specialty Start Date End Date Pascual Daly MD 230 [place] [address] PCP - General Internal Medicine 02/22/14 Fani Heck PharmD 230 [place] [address] Pharmacist Internal Medicine 12/16/22 documented as of this encounter
--- OUTSIDE RECORDS SUMMARY | 2024-08-02 12:55 | XMS_ITS | Data Portability ---
Author Organization [employer] [place] [facility] [employer] Address [address] [place] [id number] Care Team Providers Care Tax Auditor Name Role Phone [facility] PRIMARY [facility] Referring Provider Assessment Encounter Date Assessment Date Assessment LastModified by Organization Details LastModified Time 04/11/2023 04/11/2023 I provided real -time medical direction via phone for this encounter, and was available for additional phone based assistance as needed. I have reviewed and agree with the Assessment and Plan as documented by the Learning Technologist. Patient given the opportunity to ask questions. [...] Not available Not available Not available 04/11/2023 [id number] RxNorm Anitha Camacho MD 30 [facility] [place],[address], [place], [address] [facility] 3 14:49:47 4127 Celebrex medicatio n Not available Not available Not available 04/11/2023 [id number] RxNoalex Camacho MD 30 [facility] [place],[address], [place], [address], [facility] 14:49:57 4128 tramadol medicatio n Not available Not available Not available 04/11/2023 [id number] RxGeovanny Camacho MD 30 [facility] [place],[address], [place], [address], [employer] 14:50:04 Medications Name Sig Start Date Stop [...] Available Not Available No t Available FreeStyle [place] Lite kit USE DIRECTED active Not Available [...] Updated DateTime 3 97 % 97 % 14903.5 36 g 18 /min 97.8 [degF] 88 /min 167 mm[Hg] 84 mm[Hg] Not Available [employer] NLGNoDynam[employer] Micropower - production 3 14:49:26 Social History None recorded. Functional Status None recorded. Mental Status None recorded. Family History Nothing Reported. Medical History No medical history recorded. Gynecological HistoryNo gynecological history recorded. Obstetrics History GPAL:G 0 P 0 0 0 0 Past Encounters Encounter ID Performer Location Encounter Start Date Encounter Closed Date Diagnosis/Indication Diagnosis SNOMED-CT Code Diagnosis ICD10 Code Diagnosis Note [id number] Anitha Camacho MD Main - [facility] [address] [place] [address] 04/11/2023 14:49:23 04/12/2023 10:53:58 Respiratory syncytial virus infection 01669077 B97.4 Continue medication s as prescribed ., [...] Patten Member ID Guarantor Name 04/11/[address] [facility] - DOS ON OR AFTER 2022 - DUAL ELIGIBLE - [facility] OPTIONS AND ONE CARE (MEDICARE REPLACEMENT/ADV ANTAGE - HMO) Brandie Santana [id number] Brandie Ryanyes Notes Date Note Type Note Provider Name and Address Organization Details Recorded Time 04/11/2023 text/html HPI: 73 year old, Turkmen speaking member, F, with hx of DM, HTN, Asthma, Depression, hx of falls and chronic pain, reporting worsesing Productive cough, shortness of breath with activities and fatigue, worsening head aches, treated at [facility] on 04/10/23 and dx with RSV. Reported has fever and chills, believes her BP is high. Her [employer] worker is with her and member asked [...] .................. .................. .................. .................. .................. .................. ............... Learning Technologist Note From Teddy Miranda: Pt sts dis not call for [place]. [facility] set up appt. Pt was in ER yesterday diagnosed with RSV treated RX for ventalin and prednisone. Pt denies cp sob fever nausea diarrhea. Baseline vitals assessed. Lungs clear. No edema. [facility] contacted ..pt declined benzonatate. Pt advised self care and continue with RX meds. Pt education on signs indicating the ER. Learning Technologist Allergies: Lorazepam .................. .................. .................. .................. .................. .................. .................. ............... Disposition: Fulfilled Comments: Reviewed - Johana RNSEGMD: Patient seen yesterday evening [facility]. COvid negative per patient/ RSV +/She is using her albuterol every 4 hours. She is on prednisone. No nausea vomiting.Pat has hx that includes but not limited to: DM2/COPD/HTN/Fe deficiency anemia/hypothyroid ism/MDD with psychotic features/obesity status post laparoscopic gastrectomy/positi ve SUSAN/fibromyalgia. Anitha Camacho MD 30 [facility] [place],[address], [place], [address], [place] [employer] 04/12/2023 10:53:56 OBGyn Episode No OBEpisode recorded.
--- OUTSIDE RECORDS SUMMARY | 2024-08-02 12:55 | XMS_ITS | Clinical Summary ---
Author Organization [facility] Address 175 [place] [address] Phone Care Team Providers Care Valve Grinder Name Role Phone Pascual Darnell MD Primary [...] Upcoming Encounters Date Type Department Care Team ([facility] Contact Info) Description 09/02/2024 10:30 AM EDT Consult Orthopedic Surgery [place] [id number] [phone] Luciano Smith, DPM [address] [address] Health Maintenance Due Date Last Done Comments [...] Group ID:[id number] Type:Not on file Address: AMIE [facility] [place] [address] Care Teams Valve Grinder Relationship Specialty Start Date End Date Pascual Darnell MD [address] [place] [address] PCP - General Internal Medicine 06/18/24
--- OUTSIDE RECORDS SUMMARY | 2024-08-02 12:55 | XMS_ITS | Encounter Summary ---
Author Organization [employer] Address 75 [facility] 7t [place] [address] Care Team Providers Care Museum Technician Name Role Phone Pascual Daly MD Primary Care Provide r Fani Heck PharmD Unavailable [phone] Reason for Visit * Reason Comments Med Refill Encounter Details Date Type Department Care Team (Late st Contact Info) Description 01/01/2024 Refill [facility] WALK[facility] CENTER 230 [place] [address] Momo Rizo MD 230 [place] [address] Social History Tobacco Use Types Packs/Day Years [...] 10:15 AM EDT Office Visit [facility] MEDICINE [address] [place] [address] Pascual Daly MD 230 [place] [address] 08/16/2024 11:00 AM EDT Medication Management [facility] MEDICINE [address] [place] [address] Dasia Waters PharmD 230 [place] [address] 10/28/2024 10:30 AM EDT Clinical Support [facility] CHC MED & PEDS [address] [place] [address] Amanda Fernández, RN 505 [place] [address] documented as of this encounter Goals Goal [...] documented as of this encounter Care Teams Museum Technician Relationship Specialty Start Date End Date Pascual Daly MD 230 [place] [address] PCP - General Internal Medicine 02/22/14 Fani Heck PharmD 230 [place] [address] Pharmacist Internal Medicine 12/16/22 documented as of this encounter
--- OUTSIDE RECORDS SUMMARY | 2024-08-02 12:55 | XMS_ITS | Encounter Summary ---
Author Organization [employer] Address 75 [facility] 7t [place] [address] Care Team Providers Care Commutator Inspector Name Role Phone Pascual Daly MD Primary Care Provide r Fani Heck PharmD Unavailable [phone] Reason for Visit * Reason Comments Med Refill Encounter Details Date Type Department Care Team (Late st Contact Info) Description 08/26/2023 Refill [facility] 230 [place] [address] Momo Rizo MD 230 [place] [address] Benign hypertension Social History Tobacco Use Types [...] Description 08/12/2024 10:15 AM EDT Office Visit [facility] MEDICINE [address] [place] [address] Pascual Daly MD 230 [place] [address] 08/16/2024 11:00 AM EDT Medication Management [facility] MEDICINE [address] [place] [address] Dasia Waters PharmD 230 [place] [address] 10/28/2024 10:30 AM EDT Clinical Support [facility] CHC MED & PEDS 505 [place] [address] Amanda Fernández, RN 505 [place] [address] documented as of this encounter Goals Goal [...] documented as of this encounter Care Teams Commutator Inspector Relationship Specialty Start Date End Date Pascual Daly MD 230 [place] [address] PCP - General Internal Medicine 02/22/14 Fani Heck, KristiD 230 [place] [address] Pharmacist Internal Medicine 12/16/22 documented as of this encounter
--- OUTSIDE RECORDS SUMMARY | 2024-08-02 12:55 | XMS_ITS | Encounter Summary ---
Author Organization [employer] Address 75 [facility] 7t [place] [address] Care Team Providers Care Artificial Intelligence Specialist Name Role Phone Pascual Daly MD Primary Care Provide r Fani Heck PharmD Unavailable [phone] Encounter Details Date Type Department Care Team ([facility] st Contact Info) Description 09/25/2023 Telephone [facility] MEDICINE 230 [place] [address] Pascual Daly MD 230 [place] [address] Social History Tobacco Use Types Packs/Day Years [...] Description 08/12/2024 10:15 AM EDT Office Visit [facility] MEDICINE [address] [place] [address] Pascual Daly MD 230 [place] [address] 08/16/2024 11:00 AM EDT Medication Management [facility] MEDICINE 230 [place] [address] Dasia Waters, KristiD 230 [place] [address] 10/28/2024 10:30 AM EDT Clinical Support [facility] CHC MED & PEDS 505 [place] [address] Amanda Fernández, RN 505 [place] [address] documented as of this encounter Goals Goal [...] documented as of this encounter Care Teams Artificial Intelligence Specialist Relationship Specialty Start Date End Date Pascual Daly MD 230 [place] [address] PCP - General Internal Medicine 02/22/14 Fani Heck PharmD 230 [place] [address] Pharmacist Internal Medicine 12/16/22 documented as of this encounter
--- OUTSIDE RECORDS SUMMARY | 2024-08-02 12:55 | XMS_ITS | Encounter Summary ---
Author Organization [employer] Address 75 [facility] 7t [place] [address] Care Team Providers Care Volcanology Teacher Name Role Phone Pascual Daly MD Primary Care Provide r Fani Heck PharmD Unavailable [phone] Reason for Visit * Reason Comments Med Refill Encounter Details Date Type Department Care Team ([facility] Contact Info) Description 07/16/2022 Refill [facility] MEDICINE 230 [place] [address] Pascual Daly MD 230 [place], [place] [phone] Social History Tobacco Use Types Packs/Day Years [...] Encounters Date Type Department Care Team ([facility] Contact Info) Description 08/12/2024 10:15 AM EDT Office Visit [facility] MEDICINE [address] [place] [address] Pascual Daly MD 230 [place] [address] 08/16/2024 11:00 AM EDT Medication Management [facility] MEDICINE [address] [place] [address] Dasia Watesr PharmD 230 [place] [address] 10/28/2024 10:30 AM EDT Clinical Support [facility] CHC MED & PEDS 505 [place], [place] [phone] Amanda Fernández, RN 505 [place] [address] documented as of this encounter Goals Goal [...] documented as of this encounter Care Teams Volcanology Teacher Relationship Specialty Start Date End Date [place] [address] PCP - General Internal Medicine 02/22/14 Fani Heck, PharmD [address] [place] [phone] Pharmacist Internal Medicine 12/16/22 documented as of this encounter
--- OUTSIDE RECORDS SUMMARY | 2024-08-02 12:55 | XMS_ITS | Encounter Summary ---
Author Organization [employer] Address 75 [facility] 7t [place] [address] Care Team Providers Care Enforcement Officer Name Role Phone Pascual Daly MD Primary Care Provide r Fani Heck PharmD Unavailable [phone] Reason for Visit * Reason Onset Date Comments FYI 12/31/2023 Encounter Details Date Type Department Care Team ([facility] st Contact Info) Description 12/31/2023 Telephone [facility] MED[facility] 230 [place] [address] Pascual Daly MD 230 [place], [place] [phone] Social History Tobacco Use Types Packs/Day Years [...] any questions you can contact Franky at [phone]. documented in this encounter Plan of Treatment Upcoming Encounters Date Type Department Care Team (Late st Contact Info) Description 08/12/2024 10:15 AM EDT Office Visit [facility] MEDICINE [address] [place] [address] Pascual Daly MD 230 [place] [address] 08/16/2024 11:00 AM EDT Medication Management [facility] MEDICINE [address] [place] [address] Dasia Waters, PharmD 230 [place] [address] 10/28/2024 10:30 AM EDT Clinical Support [facility] CHC MED & PEDS [address] [place] [address] Amanda Fernández, RN [address] [place], [place] documented as of this encounter Goals [...] documented as of this encounter Care Teams Enforcement Officer Relationship Specialty Start Date End Date Pascual Daly MD 230 [place] [address] PCP - General Internal Medicine 02/22/14 Fani Heck, PharmD 230 [place] [address] Pharmacist Internal Medicine 12/16/22 documented as of this encounter
--- OUTSIDE RECORDS SUMMARY | 2024-08-02 12:55 | XMS_ITS | Encounter Summary ---
Author Organization [employer] Address 75 [facility] 7t [place] [address] Care Team Providers Care Night Shift Supervisor Name Role Phone Pascual Daly MD Primary Care Provide r Fani Heck PharmD Unavailable [phone] Encounter Details Date Type Department Care Team ([facility] Contact Info) Description 08/29/2022 Abstract [facility] MEDICINE 230 [place] [address] Pascual Daly MD [address] [place] [address] Social History Tobacco Use Types Packs/Day Years [...] Description 08/12/2024 10:15 AM EDT Office Visit [facility] MEDICINE 230 [place] [address] Pascual Daly MD 230 [facility] [address] 08/16/2024 11:00 AM EDT Medication Management [facility] MEDICINE 230 [place] [address] Dasia Waters, PharmD [address] [place] [address] 10/28/2024 10:30 AM EDT Clinical Support [facility] CHC MED & PEDS 505 [place], [place] [phone] Amanda Fernández, RN 505 [place] [address] documented as of this encounter Goals Goal [...] documented as of this encounter Care Teams Night Shift Supervisor Relationship Specialty Start Date End Date Pascual Daly MD [address] [place], [place] [phone] PCP - General Internal Medicine 02/22/14 Fani Heck, Woody [address] [place] [address] Pharmacist Internal Medicine 12/16/22 documented as of this encounter
--- OUTSIDE RECORDS SUMMARY | 2024-08-02 12:55 | XMS_ITS | Encounter Summary ---
Author Organization [employer] Address [address] [facility] [address] 7t [place] [address] Care Team Providers Care Surgical Attendant Name Role Phone Pascual Daly MD Primary Care Provide r Fani Heck PharmD Unavailable [phone] Encounter Details Date Type Department Care Team (Late st Contact Info) Description 03/05/2024 Refill [facility] MEDICINE 230 [place] [address] Jefry Chun Benign hypertension; Type 2 diabetes mellitus without complication, with long-term current use of insulin ([facility] Social History Tobacco Use Types Packs/Day Years [...] Description 08/12/2024 10:15 AM EDT Office Visit [facility] MEDICINE [address] [place] [address] Pascual Daly MD 230 [place] [address] 08/16/2024 11:00 AM EDT Medication Management [facility] MEDICINE [address] [place] [address] Dasia Waters, KristiD 230 [place] [address] 10/28/2024 10:30 AM EDT Clinical Support [facility] CHC MED & PEDS 505 [place] [address] Amanda Fernández, AALIYAH 505 [place] [address] documented as of this encounter Goals Goal Patient Goal Type Associated Problems Recent Progress Patient-Stated? Author Blood Pressure < 140/90 Blood Pressure 133/70( 025 11:28 AM EST) Fani Thomas, KristiD documented as of this encounter Visit Diagnoses Diagnosis Benign hypertension Essential hypertension, benign Type 2 diabetes mellitus without complication, with long-term current use of insulin ([facility]) documented in this encounter Additional Health Concerns Assessment Noted Time PHQ-9 Depression Total Score: 9 01/29/20 24 11:00 AM EDT documented as of this encounter Care Teams Surgical Attendant Relationship Specialty Start Date End Date Pascual Daly MD 230 [place] [address] PCP - General Internal Medicine 02/22/14 Fani Heck, KristiD 230 [place] [address] Pharmacist Internal Medicine 12/16/22 documented as of this encounter
--- OUTSIDE RECORDS SUMMARY | 2024-08-02 12:55 | XMS_ITS | Encounter Summary ---
Author Organization [employer] Address 75 [facility] 7t [place] [address] Care Team Providers Care Audio Installer Name Role Phone Pascual Daly MD Primary Care Provide r Fani Heck PharmD Unavailable [phone] Reason for Visit * Reason Comments Med Refill Encounter Details Date Type Department Care Team (Late st Contact Info) Description 09/26/2023 Refill [facility] MEDICINE 230 [place] [address] Pascual Daly MD 230 [place], [place] [phone] Social History Tobacco Use Types Packs/Day Years [...] 10:15 AM EDT Office Visit [facility] MEDICINE [address] [place] [address] Pascual Daly MD 230 [place] [address] 08/16/2024 11:00 AM EDT Medication Management [facility] MEDICINE [address] [place] [address] Dasia Waters PharmD 230 [place] [address] 10/28/2024 10:30 AM EDT Clinical Support [facility] CHC MED & PEDS 505 [place], [place] [phone] Amanda Fernández, RN 505 [place] [address] documented as of this encounter Goals Goal [...] documented as of this encounter Care Teams Audio Installer Relationship Specialty Start Date End Date Pascual Daly MD 230 [place] [address] PCP - General Internal Medicine 02/22/14 Fani Heck, KristiD 230 [place] [address] Pharmacist Internal Medicine 12/16/22 documented as of this encounter
--- OUTSIDE RECORDS SUMMARY | 2024-08-02 12:55 | XMS_ITS | Encounter Summary ---
Author Organization [employer] Address 75 [facility] 7t [place] [address] Care Team Providers Care Vice President Research Name Role Phone Pascual Daly MD Primary Care Provide r Fani Heck PharmD Unavailable [phone] Reason for Visit * Reason Comments Med Refill Encounter Details Date Type Department Care Team (Late st Contact Info) Description 01/14/2024 Refill [facility] CHC MED & PEDS [address] [place] [address] Pascual Daly MD 230 [place] [address] Fibromyalgia Social History Tobacco Use Types Packs/Day [...] Description 08/12/2024 10:15 AM EDT Office Visit [facility] MEDICINE [address] [place] [address] Pascual Daly MD 230 [place] [address] 08/16/2024 11:00 AM EDT Medication Management [facility] MEDICINE [address] [place] [address] Dasia Waters PharmD 230 [place] [address] 10/28/2024 10:30 AM EDT Clinical Support [facility] CHC MED & PEDS 505 [place] [address] Amanda Fernández, RN 505 [place] [address] documented as of this encounter Goals Goal [...] of this encounter Care Teams Vice President Research Relationship Specialty Start Date End Date Pascual Daly MD 230 [place] [address] PCP - General Internal Medicine 02/22/14 Fani Hcek PharmD 230 [place] [address] Pharmacist Internal Medicine 12/16/22 documented as of this encounter
--- OUTSIDE RECORDS SUMMARY | 2024-08-02 12:55 | XMS_ITS | Encounter Summary ---
Author Organization [employer] Address 75 [facility] 7t [place] [address] Care Team Providers Care Yarn Washer Name Role Phone Pascual Daly MD Primary Care Provide r Fani Heck PharmD Unavailable [phone] Encounter Details Date Type Department Care Team ([facility] st Contact Info) Description 09/25/2023 Telephone [facility] MEDICINE 230 [place] [address] Pascual Daly MD 230 [place] [address] Social History Tobacco Use Types Packs/Day Years [...] Description 08/12/2024 10:15 AM EDT Office Visit [facility] MEDICINE [address] [place] [address] Pascual Daly MD 230 [place] [address] 08/16/2024 11:00 AM EDT Medication Management [facility] MEDICINE [address] [place] [address] Dasia Waters, KristiD 230 [place] [address] 10/28/2024 10:30 AM EDT Clinical Support [facility] CHC MED & PEDS 505 [place] [address] Amanda Fernández, RN 505 [place] [address] documented as of this encounter Goals Goal Patient Goal Type Associated Problems Recent Progress Patient-Stated? Author Blood Pressure < 140/90 Blood Pressure 133/70( 025 11:28 AM EST) No Fani Heck, PharmD documented as of this encounter Visit Diagnoses Diagnosis Type 2 diabetes mellitus without complication, with long-term current use of insulin ([facility]) documented in this encounter Additional Health Concerns Assessment Noted Time PHQ-9 Depression Total Score: 11 06/10/ 024 10:24 AM EST documented as of this encounter Care Teams Yarn Washer Relationship Specialty Start Date End Date Pascual Daly MD 230 [place] [address] PCP - General Internal Medicine 02/22/14 Fani Heck PharmD 230 [place] [address] Pharmacist Internal Medicine 12/16/22 documented as of this encounter
--- OUTSIDE RECORDS SUMMARY | 2024-08-02 12:55 | XMS_ITS | Encounter Summary ---
Author Organization [employer] Address 75 [facility] 7t [place] [address] Care Team Providers Care Bullet Charging Machine Operator Name Role Phone Pascual Daly MD Primary Care Provide r Fani Heck PharmD Unavailable [phone] Reason for Visit * Reason Onset Date Comments Med Refill 10/11/2022 Encounter Details Date Type Department Care Team (Late st Contact Info) Description 10/11/2022 Telephone [facility] MEDICINE 230 [place] [address] Pascual Daly MD 230 [place], [place] [phone] Med Refill Social History Tobacco Use Types [...] Visit [facility] MEDICINE 230 [place] [address] Pascual Daly MD 230 [place] [address] 08/16/2024 11:00 AM EDT Medication Management [facility] MEDICINE 230 [place] [address] Dasia Waters PharmD 230 [place] [address] 10/28/2024 10:30 AM EDT Clinical Support [facility] MED & PEDS 505 [place], [place] [phone] Amanda Fernández, RN 505 [place] [address] documented as of this encounter Goals Goal [...] documented as of this encounter Care Teams Bullet Charging Machine Operator Relationship Specialty Start Date End Date Pascual Daly MD [address] [place] [phone] PCP - General Internal Medicine 02/22/14 Fani Heck PharmD [address] [place] [address] Pharmacist Internal Medicine 12/16/22 documented as of this encounter
--- OUTSIDE RECORDS SUMMARY | 2024-08-02 12:55 | XMS_ITS | Clinical Summary ---
Author Organization [employer] Address [address] [facility] [address] [place] [address] Care Team Providers Care Marine Cargo Specialist Name Role Phone Pascual Daly MD Primary Care Provide r Fani Heck PharmD Unavailable [phone] Allergies Active Allergy Reactions Criticality Noted Date [...] Active Continuous Glucose Sensor (Dexcom G7 Sensor) [facility] DIRECTED Active Actemra ACTPen 162 [...] (10/21/2023 10:15 AM EDT): Patient admitted to [facility] 09/09/23 after she presented to [place] emergency room due to left-sided chest discomfort as per patient she was visiting family in [place], on August 26 she turned in high [...] (08/27/2022 10:19 AM EDT): followed by a speed belt sander tender. 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 - Follow-up in [facility] in November. Repeat BMP and A1c prior [...] f/u She is under the care of Account Manager Dr Sprague, last seen 12/31/2023 On a [...] f/u She is under the care of Account Manager Dr Sprague, last seen 10/16/2023 On a [...] f/u She is under the care of Account Manager Dr Sprague, has a follow up with [...] f/u She is under the care of Account Manager Dr Sprague, has a follow up at [...] referred to Dr. Manjinder Gonsales at [facility] as her medical insurance recommended this [...] LDL-C. Melquiades WALLACE et al. TEN. 2013;310(19): 2837-4108 (http://education.Fashion For Home.Zilliant/faq/GFA515) Chol/HDLC Ratio <5.0 (calc) 4.2 3.7 2.5 [...] Data 07/22/2024 10:30 AM EDT Clinical Support [facility] [address] [place] [address] Amanda Fernández RN Fibromyalgia (Primary Dx); Long-term current use of opiate analgesic 07/22/2024 Telephone [facility] [address] [place] [address] Amanda Fernández RN 07/22/2024 Travel 07/21/2024 Orders Only [facility] [address] [facility] [place] [address] Pascual Daly MD Type 2 diabetes mellitus without complication, with long-term current use of insulin (CMS/[facility]) (Primary Dx) 07/21/2024 Telephone [facility] [address] [facility] [place] [address] Pascual Daly MD 07/14/2024 Telephone [facility] [address] [facility] [place] [address] Pascual Daly MD Chart Prep 07/07/2024 Refill [facility] [address] [facility] [place] [address] Pascual Daly MD Fibromyalgia 07/07/2024 Orders Only GENERIC EXTERNAL DATA DEPARTMENT Provider, Generic External Data 06/22/2024 Refill [facility] MEDICINE [address] [facility] [place] [address] Pascual Daly MD Pain 06/15/2024 Orders Only GENERIC EXTERNAL DATA DEPARTMENT Provider, Generic External Data 06/10/2024 Refill C MEDICINE [address] [facility] [place] [address] Pascual Daly MD Fibromyalgia 06/04/2024 Orders Only GENERIC EXTERNAL DATA DEPARTMENT Provider, Generic External Data 05/31/2024 Refill [facility] [address] [facility] [place] [address] Nikia Jeter MD Type 2 diabetes mellitus without complication, with long-term current use of insulin (CMS/[facility]); Benign hypertension 05/24/2024 Refill [facility] [address] [facility] [address] Pascual Daly MD Benign hypertension 05/18/2024 Orders Only GENERIC EXTERNAL DATA DEPARTMENT Provider, Generic External Data 05/13/2024 Telephone [facility] MED[facility] [address] [place] [address] Pascual Daly MD Med Refill 05/13/2024 Refill [facility] MED[facility] [address] [facility], [place] [phone] Pascual Daly MD Fibromyalgia 05/05/2024 11:30 AM EST Office Visit [facility] ADULT DENTAL [address] [place], [place] [phone] Santizo-Mckeon, Ammy, DDS Aphthous ulcer (Primary Dx) 05/04/2024 10:15 AM EST Office Visit [facility] MEDICINE [address] [place], [place] [phone] Pascual Daly MD Type 2 diabetes mellitus without complication, with long-term current use of insulin ([facility]) (Primary Dx); Primary hypertension; Mixed hyperlipidemia; Recurrent [...] Description 08/12/2024 10:15 AM EDT Office Visit [facility] MED[facility]INE [address] [place] [address] Pascual Daly MD [address] [place] [address] 08/16/2024 11:00 AM EDT Medication Management [facility] MEDICINE [address] [place] [address] Dasia Waters, PharmD [address] [place] [address] 10/28/2024 10:30 AM EDT Clinical Support [facility] PEDS [address] [place] [address] Amanda Fernández, RN [address] [place] [address] Health Maintenance Due Date Last Done Comments [...] Whole Blood 265(H) 60 - 115 mg/dL [facility] Comment:METER #: [id number] 5Testing performed in the Endocrinology Department [address] , [address], [facility]. 07/29/2024 8:53 AM EDT 07/29/2024 9:01 AM EDT us Generic External Data Provider LAB BLOOD ORDERAB LES Final Result [facility] [address] [place] [address] [phone] * POCT HEATHER-14 Urine Drug Screen (07/22/2024 10:33 AM EDT) Oxycodone Screen, Urine Positive Urine Urine specimen obtained by clean catch procedure / Unknown 07/22/2024 10:33 AM EDT Narrative Amanda Fernández RN - 07/22/2024 10:33 AM EDT Lot# [id number] Exp: 12-08-25 us Pascual Terry MD POINT OF CARE TEST EN TER/EDIT ORDERABLES Final Result * Alkaline Phosphatase, Bone Specific (06/15/2024 11:09 AM EST) Alkaline Phosphatase, Bone Specific 13.2 5.6 - 29.0 mcg/L [facility] Comment:Reference Range, Pre menopausal (mcg/L) 35-45 years 5.0-18.2THIS TEST WAS PERFORMED AT:[employer] [id number] [place] [id number] W. MASON,MD,PHD 06/15/2024 11:0 9 AM EST 06/15/2024 11:13 AM EST Generic External Data Provider LAB BLOOD ORDERAB LES Final Result Performing Organization Address City/[facility]/ZIP Co de Phone Number [facility] [address] [place] [address] [phone] * (ABNORMAL) PTH, Intact Without Calcium (06/15/2024 11:09 AM EST) Parathyroid Hormone, Intact 101.8(H) 8.7 - 77.1 pg/mL [facility] 06/15/2024 11:0 9 AM EST 06/15/2024 11:13 AM EST Generic External Data Provider LAB BLOOD ORDERAB LES Final Result Performing Organization Address City/[facility]/ZIP Co de Phone Number [facility] [address] [place] [phone] * Calcium, Ionized (06/15/2024 11:09 AM EST) Calcium, Ionized 5.3 4.7 - 5.5 mg/dL [facility] Comment:THIS TEST WAS PERFOR MED AT:[employer] [place] [id number] HURLEY MD 06/15/2024 11:0 9 AM EST 06/15/2024 11:13 AM EST us Generic External Data Provider LAB BLOOD ORDERAB LES Final Result [facility] [address] [place] [address] [phone] * (ABNORMAL) POCT HGB A1C (05/04/2024 10:16 AM EST) Hemoglobin A1C 8.9(A) 4.0 - 6.0 % QC Media Lot # [id number] Lot# Expiration Date , Blood 05/04/2024 10:1 6 AM EST Pascual Terry MD POINT OF CARE TEST ENTER/EDIT ORDERABLES Edited Result - Final * (ABNORMAL) POCT Glucose (05/04/2024 10:16 AM EST) Pathologist [facility] Glucose Blood, POC 270(A) 60 - 200 mg/dL QC Media Lot # [id number] Lot# Expiration Date ,025 Blood Capillary blood specimen / Unknown 05/04/2024 10:16 AM EST Pascual Terry MD POINT OF CARE TEST EN TER/EDIT ORDERABLES Final Result * (ABNORMAL) Lipid Panel, Standard (10/31/2023 10:42 AM EDT) Triglycerides 74 <150 mg/dL [facility] Comment:Desirable Triglyceri de: less than 150 mg/dLBorderline High Triglyceride 150-199 mg/dLHigh Triglyceride: 200-499 mg/dLVery High Triglyceride: greater than or equal to 5OO mg/dL Cholesterol 95 <200 mg/dL [facility] Comment:Desirable Cholestero l: less than 200 mg/dLBorderline High Cholesterol: 200-239 mg/dLHigh Cholesterol: greater than 239 mg/dL LDL Cholesterol Calculated 43 <100 mg/dL [facility] Comment:Desirable LDL: less than 100 mg/dLNear Optimal/Above Optimal LDL: 110- 129 mg/dLBorderline High LDL: 130-159 mg/dLHigh LDL: 160-189 mg/dLVery High LDL: greater than or equal to 190 mg/dL HDL Cholesterol 38(L) >40 mg/dL [facility] Comment:Desirable HDL: great er than 40 mg/dL Note: This HDL assay may give artificially low results in patients with liver disease. 10/31/2023 10:4 2 AM EDT 10/31/2023 10:42 AM EDT us Generic External Data Provider LAB BLOOD ORDERAB LES Final Result Performing Organization Address [facility] de Phone Number [facility] [address] [place] [phone] * (ABNORMAL) Albumin, Random Urine W/Creatinine (07/02/2023 10:06 AM EDT) Creatinine, Urine 163.81 mg/dL [facility] Microalbumin Urine 59.0 mg/L [facility] Microalbum Creatinine Ratio Ur 36.0(H) <30 ug/mg cr [facility] Comment:Albumin/Creatinine R atio Reference Ranges: Normal: < 30 ug/mg creatinine Microalbuminuria: 30 - 300 ug/mg creatinineClinical Albuminuria: > 300 ug/mg creatinine 07/02/2023 10:0 6 AM EDT 07/02/2023 11:41 AM EDT us Generic External Data Provider LAB URINE ORDERAB LES Final Result Performing Organization Address [facility]/ZIP Co de Phone Number [facility] [address] [place] [phone] * BI Mammogram Screening Tomosynthesis Bilateral (06/05/2023 11:00 AM EST) Anatomical Region Laterality Modality Breast Bilateral Mammography 06/05/2023 11:0 0 AM EST Narrative 07/01/2023 11:45 AM EDT ? [facility] ? [address] ?[place], [place] [address] ? Mammography Report ? Signed ? Patient: Max,Brandie ?MR#: [id number] ? : 1950 ?Acct:[id number] ? Age/Sex: 73 / F ?ADM Date: 06/05/23 ? Loc: HO.MAMMO ? Attending Dr: Briseida Rocha MD ? Ordering Physician: Aj,Briseida MD ?Results: 1Negat ?? juaquin ? Date of Service: 06/05/23 ?Follow Up: 1 Year From Orig ?? inal Mammogram ? Procedure(s): MM tomosynthesis screening BI ?? Accession Number(s): [id number] ? cc: Pascual Darnell MD; Briseida Rocha [...] 1141 ? DD/ 1100 ? TD/TT: ? Poultry Breeder: ? Procedure Note Silvestre, Image - 07/01/2023 [facility] [address] [place] [address] Mammography Report Signed Patient: Dino Santana#: [id number] : 1950Acct:[id number] Age/Sex: 73 / FADM Date: 06/05/23 Loc: [facility] Attending Dr: Briseida Rocha MD Ordering Physician: Briseida Rocha MDResults: 1Negat juaquin Date of Service: 06/05/23Follow Up: 1 Year From Orig inal Mammogram Procedure(s): MM tomosynthesis screening BI Accession Number(s): [id number] cc: Pascual Darnell MD; Briseida Rocha MD [...] in OV> 07/01/23 1141 DD/ 1100 TD/TT: Poultry Breeder: [facility] External Provider IMG BI PROCEDURES Final Result * Hepatitis C Viral RNA, Genotype, LiPA (01/15/2023 11:08 AM EDT) Hepatitis C Genotype Not Detected [facility] Comment: Genotype not detected [...] characteristics of thisassay have been determined by [employer], [place], [place]. ??The modificationshave not been cleared or approved by the FDA. ??Thisassay has been validated pursuant to the CLIAregulations and is used for clinical purposes.For additional information, please refer tohttp://education.F[employer] Home.Zilliant/faq/HCVGenotyping(This link is being provided for informational/educational purposes only.)THIS TEST WAS PERFORMED AT:[employer] [id number] [place] [address]RHBHGOPJOHN CORDON MD,PHD 01/15/2023 11:0 8 AM EDT 01/15/2023 11:08 AM EDT [facility] External Provider LAB BLO OD ORDERABLES Final Result [facility] [address] [place] [phone] * Colonoscopy (03/20/2018) Colonoscopy Normal Normal 03/20/2018 Narrative Sondra Rowe - 03/20/2018 9:09 AM EST Recommended 10 year follow up Historical Provider MD HEALTH MAINTENANCE Edited Result - Final from Last 3 Months or Most Recently Relevant to Health Maintenance Insurance [facility] - SCO DENTAL - [facility] Care Teams Marine Cargo Specialist Relationship Specialty Start Date End Date Pascual Daly MD [address] [place] [address] PCP - General Internal Medicine 02/22/14 Fani Heck PharmD [address] [place] [address] Pharmacist Internal Medicine 12/16/22
--- OUTSIDE RECORDS SUMMARY | 2024-08-02 12:55 | XMS_ITS | Encounter Summary ---
Author Organization [employer] Address [address] [facility] [address]t [place] [address] Care Team Providers Care Auto Technician Name Role Phone Pascual Daly MD Primary Care Provide r Fani Heck PharmD Unavailable [phone] Encounter Details Date Type Department Care Team ([facility] Contact Info) Description 07/01/2022 Abstract [facility] [address] [place] [address] Pascual Daly MD [address] [place], [place] [phone] Social History Tobacco Use Types Packs/Day Years [...] Description 08/12/2024 10:15 AM EDT Office Visit [facility] [address] [facility] [place] [address] Pascual Daly MD [address] [facility] [place] 08/16/2024 11:00 AM EDT Medication Management [facility] [address] [facility] [place] [phone] Dasia Waters, PharmD [address] [facility] [place] [address] 10/28/2024 10:30 AM EDT Clinical Support [facility] [address] [place], [place] [phone] Amanda Fernández, RN [address] [place], [place] documented as of this encounter Goals [...] documented as of this encounter Care Teams Auto Technician Relationship Specialty Start Date End Date Pascual Daly MD [facility] [place] PCP - General Internal Medicine 02/22/14 Fani Heck, PharmD [facility] [place] [address] Pharmacist Internal Medicine 12/16/22 documented as of this encounter
--- OUTSIDE RECORDS SUMMARY | 2024-08-02 12:55 | XMS_ITS | Encounter Summary ---
Author Organization [employer] Address [address] [facility] [address] [place] [address] Care Team Providers Care Sterile Processing Tech Name Role Phone Pascual Daly MD Primary Care Provide r Fani Heck PharmD Unavailable [phone] Reason for Visit * Reason Comments Med Refill Encounter Details Date Type Department Care Team (Late Contact Info) Description 08/08/2022 Refill [facility] [address] [place] [address] Momo Rizo MD [address] [place] [address] Mild intermittent asthma without complication Social History [...] Description 08/12/2024 10:15 AM EDT Office Visit [facility] [address] [place] [address] Pascual Daly MD [address] [place] [address] 08/16/2024 11:00 AM EDT Medication Management [facility] [address] [place] [address] Dasia Waters, KristiD [address] [place] [address] 10/28/2024 10:30 AM EDT Clinical Support [facility] [address] [place], [place] [phone] Amanda Fernández, RN [address] [place] [address] documented as of this encounter Goals Goal [...] as of this encounter Care Teams Sterile Processing Tech Relationship Specialty Start Date End Date Pascual Daly MD [address] [place] [phone] PCP - General Internal Medicine 02/22/14 Fani Heck, KristiD [address] [place] [phone] Pharmacist Internal Medicine 12/16/22 documented as of this encounter
--- OUTSIDE RECORDS SUMMARY | 2024-08-02 12:55 | XMS_ITS | Data Portability ---
Author Organization [facility] [employer] 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 OTHER Assessment No assessment recorded. Plan of Treatment Reminders Order Date Submit Date Provider Last Modified By Organization Details Last Modified Time Details Appointments None recorded. Lab None recorded. Referral None recorded. Procedures None recorded. Surgeries None recorded. Imaging None recorded. Medication Orders oxycodone 5 mg tablet 2023 024 [facility] , [address] [place] [address], [id number], 4 21:23:28 oxycodone 5 mg tablet 2023 024 [facility] , [address] [place] [address], [id number], 4 13:28:18 Patient TargetsNo targets recorded. Patient InstructionsNo instructions recorded. Reason for Referral None Reported. 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 Dori Pena NP [address], [address], [place], [address], [facility] [place] [employer] 4 15:49:21 Hypertensive disorder 23567567 Active 2023 Dori Pena NP [address], [address], [place], [address], [facility] 4 15:49:57 Gastroesophage al reflux disease 809694271 Active 2023 Dori Pena NP [address], [address], [place], [address], [place] [facility] 4 15:51:24 Rheumatoid arthritis 73791373 Active 2023 Dori Pena NP [address], [address], [place], [address], [facility] 4 15:51:29 Mixed anxiety and depressive disorder 636088355 Active 2023 Dori Pena NP [address], [place], [address], [place] [facility] 4 15:51:45 Obesity 958775374 Active 2023 Dori Pena NP [address], [place], [address], [facility] 4 15:51:51 Closed flail chest 869526689 Active 2023 Dori Pena NP [address], [place], [address], [facility] 4 15:52:35 Asthenia 93782380 Active 2023 Dori Pena NP [address], [place], [address], [facility] 4 15:52:46 Irritable bowel syndrome 75712992 Active 2023 Dori Pena NP [address], [place], [address], [facility] 4 16:06:46 Recurrent falls 732247476 Active 2023 Dori Pena NP [address], [place], [address], [facility] 4 16:38:03 Problem Notes None recorded. Procedures Surgical History Date Name Laterality Status Provider Name and Address Organization Details Recorded Time bypass gastroenterostomy completed Dori Pena, AAKASH [address], [place], [address], [facility] 09/17/2023 15:40:41 Laparoscopic cholecystectomy completed Dori Pena NP [address], [address], [place], [address], [facility] 09/17/2023 15:41:25 fixed suspension procedure of urinary bladder neck completed Dori Pena NP [address], [place], [address], [facility] 09/17/2023 15:42:01 Appendectomy completed Dori Pena NP [address], [place], [address], [facility] 09/17/2023 15:42:11 bilateral cataract surgery completed Dori Pena NP [address], [address], [place], [address], [facility] 09/17/2023 15:42:26 Imaging Results None recorded. Procedure Notes None recorded. Medical Equipment None Reported. Allergies Allergen ID Allergen Name Allergen Category Reaction Reaction Severity Criticality Documentation Date Start Date Code Code System Note Provider Name and Address Organization Details Recorded Time 95374 celecoxib medicatio n other Not available unabletoasse 09/17/2023 87142 7 RxNorm unkno wn Not Available Not Available Not Available 37780 lorazepam medicatio n other [facility] 09/17/2023 6470 RxNorm unkno wn Not Available Not Available Not Available 44962 tramadol medicatio n other Not available unabletoasse 09/17/2023 42341 RxNorm unkno wn Not Available Not Available Not Available 88374 zolpidem medicatio n other Not available unabletoasse 09/17/2023 45027 RxNorm unkno wn Not Available Not Available [...] Address Organization Details Last Updated DateTime 4 24058.7 8 g 98 /min 18 /min 97.8 [degF] 94 % 94 % 150 mm[Hg] 77 mm[Hg] Dori Pena NP [address] [facility] [address], [place], [address], [employer] [facility] 4 10:49:41 Date Recorded Body weight Heart rate Respiratory rate Body temperature Oxygen saturation Oxygen saturation in Arterial blood by Pulse oximetry Systolic blood pressure Diastolic blood pressure Provider Name and Address Organization Details Last Updated DateTime 4 19597.7 8 g 83 /min 18 /min 97 [degF] 98 % 98 % 148 mm[Hg] 74 mm[Hg] Dori Pena NP [address] [facility] [address], [place], [address], [employer] [facility] 4 13:29:12 Date Recorded Body weight Heart rate Respiratory rate Body temperature Oxygen saturation Oxygen saturation in Arterial blood by Pulse oximetry Systolic blood pressure Diastolic blood pressure Provider Name and Address Organization Details Last Updated DateTime 4 22399.7 8 g 76 /min 18 /min 97.8 [degF] 97 % 97 % 128 mm[Hg] 78 mm[Hg] Dori Pena NP [address] [facility] [address], [place], [address], [employer] [facility] 4 12:05:35 Date Recorded Body weight Heart rate Respiratory rate Body temperature Oxygen saturation Oxygen saturation in Arterial blood by Pulse oximetry Systolic blood pressure Diastolic blood pressure Provider Name and Address Organization Details Last Updated DateTime 4 71460 g 80 /min 18 /min 98 [degF] 95 % 95 % 111 mm[Hg] 60 mm[Hg] Dori Pena NP [address] [facility] [address], [place], [address], [employer] 4 11:40:36 Date Recorded Body weight Heart rate Respiratory rate Body temperature Oxygen saturation Oxygen saturation in Arterial blood by Pulse oximetry Systolic blood pressure Diastolic blood pressure Provider Name and Address Organization Details Last Updated DateTime 4 27593 g 74 /min 18 /min 98.4 [degF] 95 % 95 % 124 mm[Hg] 68 mm[Hg] Dori Pena NP [address], [facility] [address], [place], [address], [employer] 4 13:12:09 Social History Question Answer Notes LastModified by Organizat ion Details LastModified Time Tobacco Smoking Status Never Smoker Dori Pena NP [address], [facility] [address], [place], [address], [employer] 09/17/2023 15:39:38 Do You Have An Advance [...] (RSV) vaccine, unspecified 4 completed Radha batista, [employer] 09/19/2023 16:11:12 Tdap 4 completed Radha Stoll null, [facility] 09/19/2023 16:11:26 Td(adult) unspecified formulation 3 completed Radha Jerman null, [facility] 09/19/2023 16:11:43 Td(adult) unspecified formulation 3 completed Radha Jerman null, [facility] 09/19/2023 16:11:51 Pneumococcal conjugate PCV 13 6 completed Radha Jerman null, [facility] 09/19/2023 16:12:53 Pneumococcal conjugate PCV20, polysaccharide [id number] conjugate, adjuvant, PF 4 completed Radha Stoll null, [facility] 09/19/2023 16:13:07 pneumococcal polysaccharide PPV23 1 completed Radha Stoll null, [facility] 09/19/2023 16:13:22 pneumococcal polysaccharide PPV23 4 completed Radha Jerman null, [facility] 09/19/2023 16:13:31 influenza, unspecified formulation 2 [facility] 16:13:47 influenza, unspecified formulation 3 completed Radha Jerman null, [facility] 09/19/2023 16:13:55 MMR 8 completed Radha Jerman [facility], [facility] 09/19/2023 16:14:21 SARS-COV-2 (COVID-19) vaccine, UNSPECIFIED 1 completed Radha Jerman null, [facility] 09/19/2023 16:15:58 SARS-COV-2 (COVID-19) vaccine, UNSPECIFIED 1 completed Radha Jerman null, [facility] 09/19/2023 16:16:13 SARS-COV-2 (COVID-19) vaccine, UNSPECIFIED 1 [facility] 16:16:27 SARS-COV-2 (COVID-19) vaccine, UNSPECIFIED 2 completed Radha Stoll [facility] 09/19/2023 16:17:15 SARS-COV-2 (COVID-19) vaccine, UNSPECIFIED 2 completed Radha Stoll [facility] 09/19/2023 16:21:38 zoster, unspecified formulation 5 completed Radha Stoll [facility] 09/19/2023 16:23:04 zoster, unspecified formulation 9 completed Radha [facility] 09/19/2023 16:23:18 zoster, unspecified formulation 9 completed [facility] 09/19/2023 16:25:18 Past Encounters Encounter ID Performer Location Encounter Start Date Encounter Closed Date Diagnosis/Indication Diagnosis SNOMED-CT Code Diagnosis ICD10 Code Diagnosis Note [id number] Dori Pena NP [address] [address] 09/17/2023 15:22:09 09/23/2023 14:50:24 Closed flail chest 997019875 S22.5XXD with multiple rib fractures and clavicular [...] If stable no further workup needed. Asthenia 39639058 R53.1 with notable weakness due to injuryPT OT eval and treatsuppo rtive caremonito r Type 1 frank betes mellitus 64480235 E10.9 tresiba 30 unit sc qhsinsulin 2-14 SSI sc qidhsmonit or BS and adjust as needed Hypertensive disorder 38 190204 I10 not on meds for thisamlodi pine 10 mg po dailylosar zaragoza 100 mg po dailymonit or bp/vitals 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 336418 E06.3 levothyrox ine 112 mcg dailymonit or tsh as needed Gastroesop hageal reflux disease 040113781 K21.9 esomeprazo le 40 mg o daily Obesity 298343759 E66.9 jumpbasting canvas baster to consultsup portive careportio n controlmon itor weight Mixed anxi ety and depressive disorder 523922649 F41.8 aripiprazo le 20 mg dailyvenla faxine 150 mg po dailyprazo sin 6 mg po qhsmelaton in 3 mg po qhshydroxy zine 10 mg po q 8 hours prn anxietyclo nazepam 0.5 mg po q 8 hours prn anxietycar vedilol 6.25 mg po bidmonitor Rheumatoid arthritis 698 13521 M06.9 enbrel 50 mg sc q 7dayscalci um citrate 400 mg po bidmonitor for reliefsee pain management above with flail chest Irritable bowel syndrome 71362501 K58.9 ? IBSlinzess 290 mcg q ammonitor Deficiency anemias 96031 3007 D53.9 folic acidvit [id number] Coronary arteriosclerosis 78338806 I25.10 hx of MIatorvast atin 20 mg po dailyclopi dogrel 75 mg po q amsee above htn medsmonito r Recurrent falls 60935538 2 R29.6 reports history of falls with maintenance scheduler at home to help her and balance issuesrepo rts more than 5 falls/year supportive caremonito r [id number] JESSICA HINDS NP [place] [address] [place] [address] 09/18/2023 13:29:08 09/23/2023 15:13:15 Closed flail chest 010486901 S22.5XXD with multiple rib fractures and clavicular [...] If stable no further workup needed. Asthenia 51024282 R53.1 with notable weakness due to injuryPT OT eval and treatsuppo rtive caremonito r Type 1 frank betes mellitus 33069291 E10.9 A1C 8.8%Contin eu:tresiba 30 unit sc qhsinsulin 2-14 SSI sc qidmonitor BS and adjust as needed Hypertensive disorder 38 382454 I10 amlodipine 10 mg po dailylosar zaragoza 100 mg po dailycoreg 6.25 mg bidmonitor bp/vitals 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 233235 E06.3 levothyrox ine 112 mcg dailymonit or tsh as needed Gastroesop hageal reflux disease 194546735 K21.9 esomeprazo le 40 mg o daily Deficiency anemias 00782 3007 D53.9 folic acidvit [id number] Obesity 379739401 E66.9 jumpbasting canvas baster to consultsup portive careportio n controlmon itor weight Mixed anxi ety and depressive disorder 248786192 F41.8 aripiprazo le 20 mg dailyvenla faxine 150 mg po dailyprazo sin 6 mg po qhsmelaton in 3 mg po qhshydroxy zine 10 mg po q 8 hours prn anxietyclo nazepam 0.5 mg po q 8 hours prn anxietymon itor Rheumatoid arthritis 698 94050 M06.9 enbrel 50 mg sc q 7dayscalci um citrate 400 mg po bidmonitor for reliefsee pain management above with flail chest Irritable bowel syndrome 16266174 K58.9 ? IBSlinzess 290 mcg q ammonitor Coronary arteriosclerosis 24460795 I25.10 hx of MIatorvast atin 20 mg po dailyclopi dogrel 75 mg po q amsee above htn medsmonito r Recurrent falls 03837174 2 R29.6 reports history of falls with maintenance scheduler at home to help her and balance issuesrepo rts more than 5 falls/year supportive caremonito r [id number] Dori Pena NP [facility] [address] [address] 09/22/2023 14:27:57 09/29/2023 19:16:34 Closed flail chest 696064754 S22.5XXD with multiple rib fractures and clavicular [...] If stable no further workup needed. Asthenia 61658041 R53.1 with notable weakness due to injuryPT OT eval and treatsuppo rtive caremonito r Type 1 frank betes mellitus 92654860 E10.9 BS 81-252 kyzujnS7D 8.8%contin ue:tresiba 30 unit sc qhsinsulin 2-14 SSI sc qidmonitor BS and adjust as needed Hypertensive disorder 38 514129 I10 improving lately, boderline highcontam lodipine 10 mg po dailylosar zaragoza 100 mg po dailycoreg 6.25 mg bidmonitor bp/vitals 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 930206 E06.3 contlevoth yroxine 112 mcg dailymonit or tsh as needed Gastroesop hageal reflux disease 271376894 K21.9 esomeprazo le 40 mg o daily Deficiency anemias 56079 3007 D53.9 folic acidvit g54nnbfkht Obesity 539912407 E66.9 jumpbasting canvas baster to consultsup portive careportio n controlmon itor weight Mixed anxi ety and depressive disorder 776254213 F41.8 contaripip razole 20 mg dailyvenla faxine 150 mg po dailyprazo sin 6 mg po qhsmelaton in 3 mg po qhshydroxy zine 10 mg po q 8 hours prn anxietyclo nazepam 0.5 mg po q 8 hours prn anxietymon itor Rheumatoid arthritis 698 17949 M06.9 enbrel 50 mg sc q 7dayscalci um citrate 400 mg po bidmonitor for reliefsee pain management above with flail chest Irritable bowel syndrome 20608729 K58.9 ? IBSlinzess 290 mcg q ammonitor Coronary arteriosclerosis 47654577 I25.10 hx of MIatorvast atin 20 mg po dailyclopi dogrel 75 mg po q amsee above htn medsmonito r Recurrent falls 67462305 2 R29.6 reports history of falls with maintenance scheduler at home to help her and balance issuesrepo rts more than 5 falls/year supportive caremonito r Acute cystitis 84407473 N30.00 reports dysuria and occassiona l incontinen ce latelyurin e culture returned showing > 100,000 klebsiella pneumo ssp and started on ceftriaxon e 1gram IM and cefpodoxim e 200 mg po bid x 7 days with probiotic by on provider over the weekend.mo nitor [id number] Jonel Alamo MD [address] [address] 09/23/2023 11:01:43 09/29/2023 19:25:59 Closed fracture of multiple left ribs 2250045829 5983994 S22.42XG see HPIleft rib fxs 2-6 with concern for flail chest , with clavicular fxeval by surgery with no interventi on indicatedm onitor respirator y statusutil ize incentive spirometer monitor for pain controlupd ate surgery with concerns Asthenia 21481032 R53.1 PT OT eval and treatmonit or need for increased support in community Type 1 frank betes mellitus 39591829 E10.9 tresiba 30 units qdSS insulinmon itor glucose and need to titrate Hypertensive disorder 38 834363 I10 norvasc 10 mg qdcoreg 6.25 mg bidlosarta n 100 mg qdcurrentl y elevatedmo nitor need for increased control 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 070483 E06.3 hx of added to PMHmaintai priscilla onsynthroi d 112 mcg qdmonitor tsh prn Gastroesop hageal reflux disease 609911018 K21.9 nexium 40 mg qd continuedm onitor for effect Obesity 601635805 E66.09 dietary eval in patient with baseline DM Mixed anxi ety and depressive disorder 755390984 F41.8 carrying dx requiring multiple medication swill continue out patient medication s includinga bility and ativanmoni tor moodpsych eval prn Rheumatoid arthritis 698 88587 M06.9 remains onenbrel 50 mg q friday Irritable bowel syndrome 89100050 K58.9 ? IBSlinzess 290 mcg q ammonitor Coronary arteriosclerosis 41845067 I25.10 hx of MIatorvast atin 20 mg po dailyclopi dogrel 75 mg po q amsee above htn medsmonito r Recurrent falls 57764432 2 R29.6 reports history of falls with maintenance scheduler at home to help her and balance issuesrepo rts more than 5 falls/year supportive caremonito r Solitary n odule of lung 174535136 R91.1 question right 4 mm upper lobe nodulecons ider repeat scan in 6-12 months Primary insomnia 4162597 F51.01 continue melatoninm onitor need to titrate Abnormal weight loss 267 344565 R63.4 weight dropped > 12 lbs in a few days from admitappea rs to be error in initial intake weightwill monitor Acute cystitis 91468877 N30.00 now on cefpodoxim e to complete coursemoni tor for recurrent disease [id number] Dori Pena NP [facility] [address] [place] [address] 09/24/2023 09:21:20 09/29/2023 19:39:42 Closed fracture of multiple left ribs 6188212004 2761950 S22.42XG with multiple rib fractures and clavicular [...] in am off pmadjust as needed. Asthenia 62963623 R53.1 PT OT eval and treatmonit or need for increased support in community Type 1 frank betes mellitus 23952066 E10.9 BS controlled conttresib a 30 units qdSS insulinmon itor glucose and need to titrate Hypertensive disorder 38 048712 I10 stable on below regimennor vasc 10 mg qdcoreg 6.25 mg bidlosarta n 100 mg qdcurrentl y elevatedmo nitor need for increased control 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 404913 E06.3 hx of added to PMHmaintai priscilla onsynthroi d 112 mcg qdmonitor tsh prn Gastroesop hageal reflux disease 573324607 K21.9 nexium 40 mg qd continuedm onitor for effect Obesity 892131469 E66.09 dietary eval in patient with baseline DM Rheumatoid arthritis 698 37982 M06.9 remains onenbrel 50 mg q friday Irritable bowel syndrome 16336199 K58.9 ? IBSlinzess 290 mcg q ammonitor Coronary arteriosclerosis 84069895 I25.10 hx of MIatorvast atin 20 mg po dailyclopi dogrel 75 mg po q amsee above htn medsmonito r Recurrent falls 04716058 2 R29.6 reports history of falls with maintenance scheduler at home to help her and balance issuesrepo rts more than 5 falls/year supportive caremonito r Primary insomnia 6612531 F51.01 continueme latoninmon itor need to titrate Abnormal weight loss 267 219206 R63.4 weight dropped > 12 lbs in a few days from admitappea rs to be error in initial intake weight6/ reweigh pt todaywill monitor Acute cystitis 52119127 N30.00 now on cefpodoxim e to complete courseaysm ptomaticmo nitor for recurrent disease [id number] Dori Pena, AAKASH [facility] [address] [place] [address] 09/29/2023 10:39:23 10/03/2023 11:24:38 Closed fracture of multiple left ribs 9500982290 1277585 S22.42XG with multiple rib fractures and clavicular [...] to left shoulderad just as needed. Asthenia 60759547 R53.1 PT OT eval and treatmonit or need for increased support in community Type 1 frank betes mellitus 67316540 E10.9 BS controlled conttresib a 30 units qdSS insulinmon itor glucose and need to titrate Hypertensive disorder 38 772155 I10 stable on below regimen with slightly high bp likley related to pain, monitorcon tnorvasc 10 mg qdcoreg 6.25 mg bidlosarta n 100 mg qdcurrentl y elevatedmo nitor need for increased control 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 807453 E06.3 hx of added to PMHmaintai priscilla onsynthroi d 112 mcg qdmonitor tsh prn Gastroesop hageal reflux disease 499839763 K21.9 contnexium 40 mg qdmonitor for effect Obesity 676402954 E66.09 dietary evalbaseli ne DMweight today please Rheumatoid arthritis 698 85155 M06.9 remains onenbrel 50 mg q friday Irritable bowel syndrome 81059710 K58.9 ? IBSlinzess 290 mcg q ammonitor Coronary arteriosclerosis 14798654 I25.10 hx of MIatorvast atin 20 mg po dailyclopi dogrel 75 mg po q amsee above htn medsmonito r Recurrent falls 57819702 2 R29.6 reports history of falls with maintenance scheduler at home to help her and balance issuesrepo rts more than 5 falls/year supportive caremonito r Primary insomnia 9754149 F51.01 continueme latoninmon itor need to titrate Abnormal weight loss 267 680250 R63.4 weight dropped > 12 lbs in a few days from admitappea rs to be error in initial intake weight6/10 reweigh pt todaywill monitor Acute cystitis 35057568 N30.00 resolved cefpodoxim e to complete courseaysm ptomaticmo nitor for recurrent disease Mixed anxi ety and depressive disorder 969743276 F41.8 contaripip razole 20 mg dailyvenla faxine 150 mg po dailyprazo sin 6 mg po qhsmelaton in 3 mg po qhshydroxy zine 10 mg po q 8 hours prn anxiety6/1 0 renew clonazepam 0.5 mg po q 8 hours prn anxietymon itor [id number] [facility] [address] 10/02/2023 13:28:32 10/07/2023 10:08:18 Hypertensive disorder 40951016 I10 stable on below regimen as it comes down to 120s systolic post medication contnorvas c 10 mg qdcoreg 6.25 mg bidlosarta n 100 mg qdmonitor need for increased control Closed fra cture of multiple left ribs 2472903054 0985362 S22.42XG with left rib fxs 2-6 with [...] OT eval and txadjust as needed. Asthenia 92290415 R53.1 PT OT eval and treatmonit or need for increased support in community Type 1 frank betes mellitus 43788131 E10.9 BS controlled glucernaco nttresiba 30 units qdSS insulinmon itor glucose and need to titrate Gastroesop hageal reflux disease 068864902 K21.9 contnexium 40 mg qdmonitor for effect Rheumatoid arthritis 698 91078 M06.9 remains onenbrel 50 mg q friday Irritable bowel syndrome 02292174 K58.9 ? IBSlinzess 290 mcg q ammonitor Coronary arteriosclerosis 38797777 I25.10 hx of MIcoreg 6.25 mg po bidatorvas tatin 20 mg po dailyclopi dogrel 75 mg po q amsee above htn medsmonito r Recurrent falls 65960368 2 R29.6 reports history of falls with maintenance scheduler at home to help her and balance issuesrepo rts more than 5 falls/year supportive care and therapy here for balance, strengthen ing, gait, mobility, endurancem onitor Abnormal weight loss 267 970331 R63.4 weight dropped > 12 lbs in a few days from admitappea rs to be error in initial intake weight09/28 reweigh pt today10/01 reweight pt today, no weight since 09/21will monitor Mixed anxi ety and depressive disorder 791445465 F41.8 contaripip razole 20 mg dailyvenla faxine 150 mg po dailyprazo sin 6 mg po qhsmelaton in 3 mg po qhshydroxy zine 10 mg po q 8 hours prn anxiety6/ 0 renew clonazepam 0.5 mg po q 8 hours prn anxiety x 14 days10/01 cont as abovemonit or [id number] Dori Pena NP [facility] [address] [place] [address] 10/06/2023 12:02:36 10/09/2023 09:34:42 Closed fracture of multiple left ribs 4209858285 1722306 S22.42XG with left rib fxs 2-6 with [...] txadjust as needed. Abnormal weight loss 267 916626 R63.4 weight dropped > 12 lbs in a few days from admitappea rs to be error in initial intake weight10/04 160 lbs which is same as 09/22/23will monitor Hypertensive disorder 38 807664 I10 stable on below regimen as it comes down to 120s systolic post medication contnorvas c 10 mg qdcoreg 6.25 mg bidlosarta n 100 mg qdmonitor need for increased control Asthenia 24894817 R53.1 PT OT eval and treatmonit or need for increased support in community Type 1 frank betes mellitus 53858907 E10.9 pt having syrup and gingerale at [...] and need to titrate Rheumatoid arthritis 698 46354 M06.9 remains onenbrel 50 mg q friday Irritable bowel syndrome 39702208 K58.9 with constipati on today, states many days10/05 mon given today, will do supp if no bm by 4 pm10/05 start senna 8.6 mg po daily? IBSlinzess 290 mcg q ammonitor Coronary arteriosclerosis 62227048 I25.10 hx of MIcoreg 6.25 mg po bidatorvas tatin 20 mg po dailyclopi dogrel 75 mg po q amsee above htn medsmonito r Mixed anxi ety and depressive disorder 735032797 F41.8 contaripip razole 20 mg dailyvenla faxine 150 mg po dailyprazo sin 6 mg po qhsmelaton in 3 mg po qhshydroxy zine 10 mg po q 8 hours prn anxiety09/19 0 renew clonazepam 0.5 mg po q 8 hours prn anxiety x 14 days10/01 cont as above10/05 stable today with above planmonito r [id number] [facility] [address] 10/08/2023 11:40:06 10/15/2023 15:50:32 Type 1 diabetes mellitus 82223023 E10.9 pt having syrup and gingerale at [...] and need to titrate Irritable bowel syndrome 59797244 K58.9 with constipati on resolved with mom on 7 mon given today10/05 start senna 8.6 mg po daily? IBSlinzess 290 mcg q am10/07 having bm regularly nowmonitor Closed fra cture of multiple left ribs [id number] S22.42XG with left rib fxs 2-6 with [...] txadjust as needed. Abnormal weight loss 267 642953 R63.4 weight dropped > 12 lbs in a few days from admitappea rs to be error in initial intake weight10/04 160 lbs which is same as 09/22/23, ? incorrect admit weight but [facility] Hypertensive disorder 38 352707 I10 stable on below regimen as it comes down to 120s systolic post medication contnorvas c 10 mg qdcoreg 6.25 mg bidlosarta n 100 mg qdmonitor need for increased control Asthenia 63582681 R53.1 PT OT eval and treatmonit or need for increased support in community Rheumatoid arthritis 698 70602 M06.9 remains onenbrel 50 mg q friday Coronary arteriosclerosis 82639914 I25.10 hx of MIcoreg 6.25 mg po bidatorvas tatin 20 mg po dailyclopi dogrel 75 mg po q amsee above htn medsmonito r Mixed anxi ety and depressive disorder 020748173 F41.8 contaripip razole 20 mg dailyvenla faxine 150 mg po dailyprazo sin 6 mg po qhsmelaton in 3 mg po qhshydroxy zine 10 mg po q 8 hours prn anxiety/ 0 renew clonazepam 0.5 mg po q 8 hours prn anxiety x 14 days10/01 cont as above10/05 stable today with above plan10/07 stable today with above planmonito r Hyperkalemia 05979929 E8 7.5 k of 5.7 on give kayexalate 15 gm today10/08 bmp in ammonitor for additional e lyte abbormalit ies [id number] Dori Pena NP [address] [address] 10/09/2023 13:08:06 10/15/2023 16:27:22 Closed fracture of multiple left ribs [id number] 5792791 S22.42XG resolving with left rib fxs 2-6 [...] prnadjust as needed outpt with pcp Hyperkalemia 23208466 E8 7.5 k of 5.7 on give kayexalate 15 gm on 10/07monito r for additional e lyte abnormalit ies outpt with pcp Type 1 frank betes mellitus 49216141 E10.9 BS slightly high while at rehab with eating sugary foods/drin ksPlan: diet sodas and diet syrup and less sugary choicescon tglucernat resiba 30 units qdSS insulin with meals as per home schedmonit or glucose and need to titrate outpt with pcp outpt Irritable bowel syndrome 91176758 K58.9 with constipati on resolvedse nna 8.6 mg po daily (started at rehab)? IBSlinzess 290 mcg q ammonitor with pcp outpt Abnormal weight loss 267 027695 R63.4 weight dropped > 12 lbs in a few days from admitappea rs to be error in initial intake weight10/04 160 lbs which is same as 09/22/23, ? incorrect admit weight but seems stable nowmonitor oupt with pcp Hypertensive disorder 38 548637 I10 stable on below regimen as it comes down to 120s systolic post medication contnorvas c 10 mg qdcoreg 6.25 mg bidlosarta n 100 mg qdmonitor need for increased control outpt with pcp Asthenia 02964898 R53.1 PT OT eval and treat outpt prnmonitor need for increased support in community with pcp Rheumatoid arthritis 698 40287 M06.9 remains onenbrel 50 mg q fridaymoni tor outpt with pcp Coronary arteriosclerosis 62436751 I25.10 hx of MIcoreg 6.25 mg po bidatorvas tatin 20 mg po dailyclopi dogrel 75 mg po q amsee above htn medsmonito r outpt wtih pcp 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 contaripip razole 20 mg dailyvenla faxine 150 mg po dailyprazo sin 6 mg po qhsmelaton in 3 mg po qhshydroxy zine 10 mg po q 8 hours prn anxietyclo nazepam 0.5 mg po q 8 hours prn anxietymon itor outpt with pcp Gastroesop hageal reflux disease 817999291 K21.9 contnexium 40 mg qdmonitor for effect outpt with pcp Recurrent falls 30527020 2 R29.6 reports history of falls with maintenance scheduler at home to help her and balance issuesrepo rts more than 5 falls/year supportive care and therapy here for balance, strengthen ing, gait, mobility, endurance outpt rpnmonitor outpt with pcp 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 067570 E06.3 hx of added to PMHmaintai priscilla onsynthroi d 112 mcg qdmonitor tsh prn with pcp Obesity 272541191 E66.09 dietary evalbaseli ne DMweight to be monitored with pcp outpt Primary insomnia 1277453 F51.01 continueme latoninmon itor need to titrate outpt Acute cystitis 46901282 N30.00 resolved cefpodoxim e to complete courseaysm [...] Member ID Guarantor Name 09/29/2023 1 [facility] - DOS ON OR AFTER 2022 - MEDIC[place]AGE [place]V ANTAGE - PPO) Brandie Luevano [id number] Brandie Luevano 10/02/2023 1 [facility] - DOS ON OR AFTER 2022 - [place]V [place] - [place]PO) Brandie Luevano [id number] Brandie Luevano 10/06/2023 1 [facility] - DOS ON OR AFTER 2022 - [place]V [place] - PPO) Brandie Tanga [id number] Brandie Luevano 10/08/2023 1 [facility] - DOS ON OR AFTER 2022 - [place]V [place] - [place]PO) Brandie Luevano [id number] Brandie Luevano 10/09/2023 1 [facility] - DOS ON OR AFTER 2022 - [place]V ANT[place] - PPO) Brandie Luevano [id number] Brandie Luevano Notes Date Note Type Note [...] a cane usually Dori Pena, AAKASH [address], [address], [place], [address], [place] [facility] 09/29/2023 11:09:33 10/02/2023 text/html Pt is seen [...] is sitting up in bed with her HAND THERAPIST visiting. She has her sling in place [...] a cane usually Dori Pena, AAKASH [address], [address], [place], [address], [facility] 10/02/2023 13:48:50 10/06/2023 text/html Pt is seen for a n acute rounding visit. Brandie is working here at [facility] and is feeling good and more mobile lately with left sling in place. She continues with therapy and making gains. She was treated for a UTI when she first came to [facility] and denies any urinary symptoms. Nursing [...] a cane usually Dori Pena NP [address], [address], [place], [address], [employer] 10/06/2023 12:26:22 10/08/2023 text/html Pt is seen [...] in a sling for comfort. While at [facility]:She was treated for a UTI when she first came to [facility] and denies any urinary symptoms. Nursing [...] a cane usually Dori Pena NP [address], [address], [place], [address], [employer] 10/08/2023 12:05:52 10/09/2023 text/html Pt is seen [...] in a sling for comfort. While at [facility]:She was treated for a UTI when she first came to [facility] and denies any urinary symptoms. Nursing [...] a cane usually Dori Pena NP [address], [address], [place], [address], [facility] [place] [employer] 10/09/2023 16:50:56 OBGyn Episode No OBEpisode recorded.
--- OUTSIDE RECORDS SUMMARY | 2024-08-02 12:55 | XMS_ITS | Encounter Summary ---
Author Organization [employer] Address [address] [facility] 7t [place] [address] Care Team Providers Care Sonographer Name Role Phone Pascual Daly MD Primary Care Provide r Fani Heck PharmD Unavailable [phone] Reason for Visit * Reason Comments Med Refill Encounter Details Date Type Department Care Team (Late Contact Info) Description 12/28/2022 Refill [facility] [address] [place] [address] Titi Gray FNP Major depressive disorder with [...] Description 08/12/2024 10:15 AM EDT Office Visit [facility] [address] [place], [place] [phone] Pascual Daly MD 230 [place] [address] 08/16/2024 11:00 AM EDT Medication Management [facility] [address] [place], [place] [phone] Dasia Waters PharmD 230 [place], [place] 10/28/2024 10:30 AM EDT Clinical Support [facility] 505 [place] [address] Amanda Fernández, RN 505 [place], [place] documented as of this encounter Goals [...] documented as of this encounter Care Teams Sonographer Relationship Specialty Start Date End Date Pascual Daly MD [address] [place] [address] PCP - General Internal Medicine 02/22/14 Fani Heck PharmD [address] [place] [address] Pharmacist Internal Medicine 12/16/22 documented as of this encounter
--- OUTSIDE RECORDS SUMMARY | 2024-08-02 12:55 | XMS_ITS | Encounter Summary ---
Author Organization [employer] Address 75 [facility] 7t [place] [address] Care Team Providers Care Body Wirer Name Role Phone Pascual Daly MD Primary Care Provide r Fani Heck PharmD Unavailable [phone] Reason for Visit * Reason Comments Med Refill Encounter Details Date Type Department Care Team (Late Contact Info) Description 10/02/2022 Refill [facility] 230 [place] [address] Titi Gray FNP Major depressive disorder with [...] 10:15 AM EDT Office Visit [facility] 230 [place], [place] [phone] Pascual Daly MD 230 [place], [place] [phone] 08/16/2024 11:00 AM EDT Medication Management [facility] 230 [place] [address] Dasia Waters, Woody 230 [place], [place] 10/28/2024 10:30 AM EDT Clinical Support [facility] 505 [place] [address] Amanda Fernández, RN [address] [place] [address] documented as of this encounter Goals Goal [...] as of this encounter Care Teams Body Wirer Relationship Specialty Start Date End Date Pascual Daly MD [address] [place] [address] PCP - General Internal Medicine 02/22/14 Fani Heck PharmD [address] [place] [address] Pharmacist Internal Medicine 12/16/22 documented as of this encounter
--- OUTSIDE RECORDS SUMMARY | 2024-08-02 12:55 | XMS_ITS | Encounter Summary ---
Author Organization [employer] Address 75 [facility] 7t [place] [address] Care Team Providers Care Farmworker Brooder Farm Name Role Phone Pascual Daly MD Primary Care Provide r Fani Heck PharmD Unavailable [phone] Reason for Visit * Reason Onset Date Comments Med Refill 01/13/2024 Encounter Details Date Type Department Care Team ([facility] st Contact Info) Description 01/13/2024 Telephone [facility] MED[facility]INE 230 [place] [address] Pascual Daly MD [address] [place], [place] [phone] Med Refill Social History Tobacco Use Types [...] immediate release tablet To be sent to: [facility] - [place], [place] - [address] [place] [address] documented in this encounter Plan of Treatment Upcoming Encounters Date Type Department Care Team ([facility] st Contact Info) Description 08/12/2024 10:15 AM EDT Office Visit [facility] [address] [place] [address] Pascual Daly MD [address] [place] [address] 08/16/2024 11:00 AM EDT Medication Management [facility] [address] [place] [address] Dasia Waters, KristiD [address] [place] [address] 10/28/2024 10:30 AM EDT Clinical Support [facility] 505 [place] [address] Amanda Fernández, RN 505 [place] [address] documented as of this encounter Goals Goal [...] documented as of this encounter Care Teams Farmworker [employer] Farm Relationship Specialty Start Date End Date Pascual Daly MD [address] [place] [address] PCP - General Internal Medicine 02/22/14 Fani Heck, PharmD [address] [place] [address] Pharmacist Internal Medicine 12/16/22 documented as of this encounter
--- OUTSIDE RECORDS SUMMARY | 2024-08-02 12:55 | XMS_ITS | Encounter Summary ---
Author Organization [employer] Address 75 [facility] 7t [place] [address] Care Team Providers Care U.S. Revenue Officer Name Role Phone Pascual Daly MD Primary Care Provide r Fani Heck PharmD Unavailable [phone] Reason for Visit * Reason Onset Date Comments Appointment Request 09/03/2022 Encounter Details Date Type Department Care Team ([facility] st Contact Info) Description 09/03/2022 Telephone [facility] MEDICINE [address] [place] [address] Pascual Daly MD [address] [place], [place] [phone] Appointment Request Social History Tobacco Use Types [...] Description 08/12/2024 10:15 AM EDT Office Visit [facility] MED[facility]INE [address] [place] [address] Pascual Daly MD [address] [place] [address] 08/16/2024 11:00 AM EDT Medication Management [facility] [address] [place] [address] Dasia Waters PharmD [address] [place] [address] 10/28/2024 10:30 AM EDT Clinical Support [facility] 505 [place], [place] [phone] Amanda Fernández, RN 505 [place] [address] documented as of this encounter Goals Goal [...] documented as of this encounter Care Teams U.S. Revenue Officer Relationship Specialty Start Date End Date Pascual Daly MD [address] [place] [address] PCP - General Internal Medicine 02/22/14 Fani Heck PharmD [address] [place] [address] Pharmacist Internal Medicine 12/16/22 documented as of this encounter
--- OUTSIDE RECORDS SUMMARY | 2024-08-02 12:56 | XMS_ITS | Encounter Summary ---
Author Organization [employer] Address [address] [facility] 7t [place] [address] Care Team Providers Care Bag Builder Name Role Phone Pascual Daly MD Primary Care Provide r Fani Heck PharmD Unavailable [phone] Encounter Details Date Type Department Care Team (Latest Contact Info) Description 05/26/2019 Abstract [facility] CONVERSIONS Dental, Provider, DDS Social History [...] Description 08/12/2024 10:15 AM EDT Office Visit [facility] MEDICINE [address] [place] [address] Pascual Daly MD [address] [place] [address] 08/16/2024 11:00 AM EDT Medication Management [facility] MEDICINE [address] [place] [address] Dasia Waters, PharmD 230 [place] [address] 10/28/2024 10:30 AM EDT Clinical Support [facility] [address] [place] [address] Amanda Fernández, RN [address] [place] [address] documented as of this encounter Visit Diagnoses Not on filedocumented in this encounter Care Teams Bag Builder Relationship Specialty Start Date End Date Pascual Daly MD [address] [place] [address] PCP - General Internal Medicine 02/22/14 Fani Heck PharmD [address] [place] [address] Pharmacist Internal Medicine 12/16/22 documented as of this encounter
--- OUTSIDE RECORDS SUMMARY | 2024-08-02 12:56 | XMS_ITS | Encounter Summary ---
Author Organization [employer] Address [address] [place] [address] 7t [place] [address] Care Team Providers Care Gas Specialist Name Role Phone Pascual Daly MD Primary Care Provide r Fani Heck PharmD Unavailable [phone] Encounter Details Date Type Department Care Team (Late st Contact Info) Description 03/11/2022 Abstract [facility] MEDICINE [address] [place] [address] Pascual Daly MD [address] [place] [address] Social History Tobacco Use Types Packs/Day Years [...] Description 08/12/2024 10:15 AM EDT Office Visit [facility] MEDICINE [address] [place] [address] [phone] Pascual Daly MD 230 [place] [address] 08/16/2024 11:00 AM EDT Medication Management [facility] MEDICINE [address] [place] [phone] Dasia Waters, KristiD 230 [place] [address] 10/28/2024 10:30 AM EDT Clinical Support [facility] MED & PEDS 505 [place] [address] Amanda Fernández, RN 505 [place] [address] documented as of this encounter Visit Diagnoses Not on filedocumented in this encounter Care Teams Gas Specialist Relationship Specialty Start Date End Date Pascual Daly MD 230 [place] [address] PCP - General Internal Medicine 02/22/14 Fani Heck, KristiD 230 [place] [address] Pharmacist Internal Medicine 12/16/22 documented as of this encounter
--- OUTSIDE RECORDS SUMMARY | 2024-08-02 12:56 | XMS_ITS | Encounter Summary ---
Author Organization [employer] Address [address] [place] [address] 7t [place] [address] Care Team Providers Care Agricultural Extension Agent Name Role Phone Pascual Daly MD Primary Care Provide r Fani Heck PharmD Unavailable [phone] Encounter Details Date Type Department Care Team (Late st Contact Info) Description 03/11/2022 Abstract [facility] [address] [place] [address] Fani Heck, PharmD 230 [place] [address] Social History Tobacco Use Types Packs/Day Years [...] 10:15 AM EDT Office Visit [facility] [address] [place] [address] [phone] Pascual Daly MD 230 [place] [address] 08/16/2024 11:00 AM EDT Medication Management [facility] [address] [place] [address] Dasia Waters, KristiD 230 [place] [address] 10/28/2024 10:30 AM EDT Clinical Support [facility] MED & PEDS [address] [place] [address] Amanda Fernández, RN 505 [place] [address] documented as of this encounter Visit Diagnoses Not on filedocumented in this encounter Care Teams Agricultural Extension Agent Relationship Specialty Start Date End Date Pascual Daly MD 230 [place] [address] PCP - General Internal Medicine 02/22/14 Fani Heck, KristiD 230 [place] [address] Pharmacist Internal Medicine 12/16/22 documented as of this encounter
--- OUTSIDE RECORDS SUMMARY | 2024-08-02 12:56 | XMS_ITS | Encounter Summary ---
Author Organization [employer] Address 75 [facility] 7t [place] [address] Care Team Providers Care Oil Lease Operator Name Role Phone Pascual Daly MD Primary Care Provide r Fani Heck PharmD Unavailable [phone] Encounter Details Date Type Department Care Team ([facility] st Contact Info) Description 07/29/2024 Orders Only [...] Description 08/12/2024 10:15 AM EDT Office Visit [facility] MEDICINE [address] [place] [address] Pascual Daly MD 230 [place] [address] 08/16/2024 11:00 AM EDT Medication Management [facility] MEDICINE [address] [place] [address] Dasia Waters, PharmD 230 [place] [address] 10/28/2024 10:30 AM EDT Clinical Support [facility] MED & PEDS 505 [place], [place] [phone] Amanda Fernández, RN 505 [place] [address] documented as of this encounter Goals Goal [...] Whole Blood 265(H) 60 - 115 mg/dL [facility] Comment:METER #: [id number] 5Testing performed in the Endocrinology Department [address] , [address], [facility]. 07/29/2024 8:53 AM EDT 07/29/2024 9:01 AM EDT us Generic External Data Provider LAB BLOOD ORDERAB LES Final Result [facility] [address] [place] [address] [phone] documented in this encounter Visit Diagnoses Not on filedocumented in this encounter Additional Health Concerns Assessment Noted Time PHQ-9 Depression Total Score: 9 01/29/20 24 11:00 AM EDT documented as of this encounter Care Teams Oil Lease Operator Relationship Specialty Start Date End Date Pascual Daly MD [address] [place] [address] PCP - General Internal Medicine 02/22/14 Fani Heck PharmD [address] [place] [address] Pharmacist Internal Medicine 12/16/22 documented as of this encounter
--- OUTSIDE RECORDS SUMMARY | 2024-08-02 12:56 | XMS_ITS | Encounter Summary ---
Author Organization [employer] Address 75 [facility] 7t [place] [address] Care Team Providers Care Oil Burner Name Role Phone Pascual Daly MD Primary Care Provide r Fani Hcek PharmD Unavailable [phone] Encounter Details Date Type Department Care Team ([facility] Contact Info) Description 05/29/2022 Abstract [facility] MEDICINE 230 [place] [address] Pascual Daly MD 230 [place] [address] Social History Tobacco Use Types Packs/Day Years [...] 08/12/2024 10:15 AM EDT Office Visit [facility] MEDICINE 230 [facility] [place] [address] Pascual Daly MD 230 [facility] [place] [address] 08/16/2024 11:00 AM EDT Medication Management [facility] MEDICINE 230 [facility] [place] [address] Dasia Waters PharmD 230 [facility] [place] [address] 10/28/2024 10:30 AM EDT Clinical Support [facility]EDS 505 [place], [place] [phone] Amanda Fernández, AALIYAH 505 [place], [place] documented as of this encounter Goals [...] as of this encounter Care Teams Oil Burner Relationship Specialty Start Date End Date Pascual Daly MD [place] PCP - General Internal Medicine 02/22/14 Fani Heck PharmD [facility] [place] [phone] Pharmacist Internal Medicine 12/16/22 documented as of this encounter
--- OUTSIDE RECORDS SUMMARY | 2024-08-02 12:56 | XMS_ITS | Encounter Summary ---
Author Organization [employer] Address [address] [facility] 7t [place] [address] Care Team Providers Care Change Management Coordinator Name Role Phone Pascual Daly MD Primary Care Provide r Fani Heck PharmD Unavailable [phone] Reason for Visit * Reason Comments Med Refill Encounter Details Date Type Department Care Team (Late st Contact Info) Description 10/21/2023 Refill [facility] MEDICINE 230 [place] [address] Titi Gray FNP Major depressive disorder with [...] 10:15 AM EDT Office Visit [facility] MEDICINE [address] [place] [address] Pascual Daly MD 230 [place] [address] 08/16/2024 11:00 AM EDT Medication Management [facility] MEDICINE [address] [place] [address] Dasia Waters PharmD 230 [place] [address] 10/28/2024 10:30 AM EDT Clinical Support [facility] 505 [place] [address] Amanda Fernández, AALIYAH 505 [place] [address] documented as of this encounter Goals Goal [...] documented as of this encounter Care Teams Change Management Coordinator Relationship Specialty Start Date End Date Pascual Daly MD 230 [place] [address] PCP - General Internal Medicine 02/22/14 Fani Heck PharmD 230 [place] [address] Pharmacist Internal Medicine 12/16/22 documented as of this encounter
--- OUTSIDE RECORDS SUMMARY | 2024-08-02 12:56 | XMS_ITS | Encounter Summary ---
Author Organization [employer] Address [address] [place] [address] 7t [place] [address] Care Team Providers Care Ct Technologist Name Role Phone Pascual Daly MD Primary Care Provide r Fani Heck PharmD Unavailable [phone] Encounter Details Date Type Department Care Team (Late st Contact Info) Description 03/13/2022 Abstract [facility] MEDICINE [address] [place] [phone] Provider, MD Bill Social History Tobacco Use [...] Office Visit [facility] MEDICINE [address] [place] [address] Pascual Daly MD [address] [place] [address] 08/16/2024 11:00 AM EDT Medication Management [facility] MEDICINE [address] [place] [address] Dasia Waters, PharmD [address] [place] [address] 10/28/2024 10:30 AM EDT Clinical Support [facility] CHC MED & PEDS [address] [place] [address] Amanda Fernández, AALIYAH [address] [place], [place] documented as of this encounter Visit Diagnoses Not on filedocumented in this encounter Care Teams Ct Technologist Relationship Specialty Start Date End Date Pascual Daly MD [address] [place] [address] PCP - General Internal Medicine 02/22/14 Fani Heck, KristiD [address] [place] [address] Pharmacist Internal Medicine 12/16/22 documented as of this encounter
--- OUTSIDE RECORDS SUMMARY | 2024-08-02 12:56 | XMS_ITS | Encounter Summary ---
Author Organization [employer] Address [address] [facility] 7t [place] [address] Care Team Providers Care Advertising Editor Name Role Phone Pascual Daly MD Primary Care Provide r Fani Heck PharmD Unavailable [phone] Reason for Visit * Reason Onset Date Comments FYI 11/06/2023 Encounter Details Date Type Department Care Team ([facility] st Contact Info) Description 11/06/2023 Telephone [facility] MEDICINE 230 [place] [address] Pascual Daly MD 230 [place], [place] [phone] I Social History Tobacco Use Types Packs/Day [...] - 11/06/2023 4:39 PM EDT Tc from [facility] CORDERO PT informing pt has started services For PT 11/06/23 documented in this encounter Plan of Treatment Upcoming Encounters Date Type Department Care Team ([facility] st Contact Info) Description 08/12/2024 10:15 AM EDT Office Visit [facility] MEDICINE [address] [place] [address] Pascual Daly MD [address] [place] [address] 08/16/2024 11:00 AM EDT Medication Management [facility] MEDICINE [address] [place] [address] Dasia Waters, Woody [address] [place] [address] 10/28/2024 10:30 AM EDT Clinical Support [facility] CHC MED & PEDS 505 [place] [address] Amanda Fernández, RN 505 [place] [address] documented as of this encounter Goals Goal [...] documented as of this encounter Care Teams Advertising Editor Relationship Specialty Start Date End Date Pascual Daly MD [address] [place] [address] PCP - General Internal Medicine 02/22/14 Fani Heck, PharmD [address] [place] [address] Pharmacist Internal Medicine 12/16/22 documented as of this encounter
--- OUTSIDE RECORDS SUMMARY | 2024-08-02 12:56 | XMS_ITS | Encounter Summary ---
Author Organization [employer] Address [address] [facility] 7t [place] [address] Care Team Providers Care Vat Cleaner Name Role Phone Pascual Daly MD Primary Care Provide r Fani Heck PharmD Unavailable [phone] Reason for Visit * Reason Onset Date Comments FYI 12/11/2023 Durable Medical Equipment 12/11/2023 Encounter Details Date Type Department Care Team (Late st Contact Info) Description 12/11/2023 Telephone [facility] MEDICINE 230 [place], [place] [phone] Pascual Daly MD 230 [place], [place] [phone] FYI ; Durable Medical Equipment Social History [...] two DME scripts to be sent to [facility] which: [facility] bed Please fax over to [phone] documented in this encounter Plan of Treatment Upcoming Encounters Date Type Department Care Team (Late st Contact Info) Description 08/12/2024 10:15 AM EDT Office Visit [facility] MEDICINE [address] [place] [address] Pascual Daly MD [address] [place] [address] 08/16/2024 11:00 AM EDT Medication Management [facility] MEDICINE [address] [place] [address] Dasia Waters, Woody 230 [place] [address] 10/28/2024 10:30 AM EDT Clinical Support [facility] MED & PEDS 505 [place] [address] Amanda Fernández, RN 505 [place] [address] documented as of this encounter Goals Goal Patient Goal Type Associated Problems Recent Progress Patient-Stated? Author Blood Pressure < 140/90 Blood Pressure 133/70( 025 11:28 AM EST) No aFni Heck, PharmD documented as of this encounter Visit Diagnoses Not on filedocumented in this encounter Additional Health Concerns Assessment Noted Time PHQ-9 Depression Total Score: 11 024 10:24 AM EST documented as of this encounter Care Teams Vat Cleaner Relationship Specialty Start Date End Date Pascual Daly MD 230 [place] [address] PCP - General Internal Medicine 02/22/14 Fani Heck, PharmD 230 [place] [address] Pharmacist Internal Medicine 12/16/22 documented as of this encounter
--- OUTSIDE RECORDS SUMMARY | 2024-08-02 12:56 | XMS_ITS | Encounter Summary ---
Author Organization [facility] [employer] Address 75 [facility] 7t [place] [address] Care Team Providers Care Utilities Service Investigator Name Role Phone Pascual Daly MD Primary Care Provide r Fani Heck PharmD Unavailable [phone] Reason for Visit * Reason Onset Date Comments Med Refill 12/15/2023 Encounter Details Date Type Department Care Team ([facility] st Contact Info) Description 12/15/2023 Telephone [facility] MEDICINE 230 [place] [address] Pascual Daly MD 230 [place], [place] [phone] Med Refill Social History Tobacco Use Types [...] immediate release tablet To be sent to: [facility] - [place], [place] - [address] [place] [address] documented in this encounter Plan of Treatment Upcoming Encounters Date Type Department Care Team ([facility] st Contact Info) Description 08/12/2024 10:15 AM EDT Office Visit [facility] MEDICINE [address] [place] [address] Pascual Daly MD [address] [place] [address] 08/16/2024 11:00 AM EDT Medication Management [facility] MEDICINE [address] [place] [address] Dasia Waters, KristiD 230 [place] [address] 10/28/2024 10:30 AM EDT Clinical Support [facility] CHC MED & PEDS 505 [place] [address] Amanda Fernández, RN [address] [place] [address] documented as of this encounter Goals Goal [...] documented as of this encounter Care Teams Utilities Service Investigator Relationship Specialty Start Date End Date Pascual Daly MD [address] [place] [address] PCP - General Internal Medicine 02/22/14 Fani Heck, PharmD [address] [place] [address] Pharmacist Internal Medicine 12/16/22 documented as of this encounter
--- OUTSIDE RECORDS SUMMARY | 2024-08-02 12:56 | XMS_ITS | Encounter Summary ---
Author Organization [employer] Address [address] [facility] 7t [place] [address] Care Team Providers Care Wheat Combine Driver Name Role Phone Pascual Daly MD Primary Care Provide r Fani Heck PharmD Unavailable [phone] Reason for Visit * Reason Comments Med Refill Encounter Details Date Type Department Care Team (Late st Contact Info) Description 10/21/2023 Refill [facility] MEDICINE [address] [place] [address] Titi Gray FNP Major depressive disorder with [...] Description 08/12/2024 10:15 AM EDT Office Visit [facility] MEDICINE [address] [place] [address] Pascual Daly MD 230 [place] [address] 08/16/2024 11:00 AM EDT Medication Management [facility] MEDICINE [address] [place] [address] Dasia Waters PharmD 230 [place] [address] 10/28/2024 10:30 AM EDT Clinical Support [facility] CHC MED & PEDS 505 [place] [address] Amanda Fernández, AALIYAH 505 [place] [address] documented as of this encounter Goals Goal [...] documented as of this encounter Care Teams Wheat Combine Driver Relationship Specialty Start Date End Date Pascual Daly MD 230 [place] [address] PCP - General Internal Medicine 02/22/14 Fani Heck PharmD [address] [place] [address] Pharmacist Internal Medicine 12/16/22 documented as of this encounter
== END 2024-08-02 10:58 | disposition home or self-care (01) ==
LOC: HO.MAMMO 10:57
PROVIDERS: PCP Internal Medicine; Visit Provider Internal Medicine
DX: Z12.31 Encounter for screening mammogram for malignant neoplasm of breast (principal)
CPT/HCPCS: 77063; 77067

== ENCOUNTER → 2024-08-02 11:30 | Outpatient (BNV) | payer OTHER, SELFPAY | PROVIDERS: PCP Internal Medicine; Visit Provider Internal Medicine | DX: Z12.31 Encounter for screening mammogram for malignant neoplasm of breast (principal) | CPT/HCPCS: 77063; 77067 ==

== ENCOUNTER 2024-08-11 09:48 | Outpatient (AMB) | payer OTHER, SELFPAY ==
--- NOTE | 2024-08-11 09:51 | MHC.OFFVIS ---
Vital Signs 08/11/24 10:25 Height 4 ft 11 in Weight 151 lb BMI 30.5 BP 117/66 Blood Pressure Location Lt brachial Position Sitting Pulse 73 Pulse Oximetry (%) 96 Oxygen Delivery Method Room Air Intake Visit Reasons: Follow up [facility] Intake Note: patient follow up for [facility]. Patient cc: early satiety, she stop linzess due using a lot the bathroom with diarrhea, she wanted low dose to be able to use the bathroom due constipation, chocking sensation. Cat And Dog Bather Required: Yes Cat And Dog Bather Name: [facility] interpeter Accompanied by: Self / Same As Patient Allergies lorazepam [LORAZEPAM] Allergy (Severe, Verified 08/11/24 09:51) DELIRIUM celecoxib [From Celebrex] Allergy (Intermediate, Verified 08/11/24 09:51) ITCHING tramadol [TRAMADOL] Allergy (Intermediate, Verified 08/11/24 09:51) ITCHING zolpidem [Ambien] Allergy (Unknown, Verified 08/11/24 09:51) unknown HPI HPI Follow up [facility]: Details: Assessment & Plan (1) GERD (gastroesophageal reflux disease): Code(s): K21.9 - Gastro-esophageal reflux disease without esophagitis Category: Medical (2) Chronic idiopathic constipation: Code(s): K59.04 - Chronic idiopathic constipation Category: Medical Plan [place] #Keara Marcin She continues to do well on her Linzess 290 and her esomeprazole. She feels these worked well to control her GI conditions. 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 They are waiting until her blood pressure and blood sugars are better controlled to proceed with this. Her last colonoscopy was in [address] Castillo and she denies any family history of colon cancer so she will be due again in 2027. Return office visit in 6 months. Medications: Refilled linaclotide (Linzess) 290 mcg PO QAM 30 caps 6RF K59.04 - Chronic idiopathic constipation esomeprazole magnesium 40 mg PO DAILY 30 caps 6RF K21.9 - Gastro-esophageal reflux disease without esophagitis TODAY'S VISIT [place] #[employer] Linzess 290 and her esomeprazole. She wants to decrease the LInzess dose as she is having too much fecal urgency. Will lower to 145mcg and titrate. She also c/o bloating and will rx simethicone 125mg chewable. Her nexium works well. ROV next available. [facility] Medical History Heart palpitations Hypoglycemia due to insulin Elevated parathyroid hormone Osteoporosis Hyperlipidemia (04/21/1959) Depressive disorder (04/21/1959) Nutritional anemia (04/21/1959) Shortness of breath Hypothyroidism (04/21/1959) Anemia Chronic gastritis NSTEMI (non-ST elevated myocardial infarction) Recurrent falls (12/04/11) Iron deficiency anemia (04/21/1959) Fibromyositis (04/21/1959) Eczema (04/21/1959) High risk medication use Hepatitis C antibody positive in blood Screening for osteoporosis Screening for viral disease Joint swelling Overweight (BMI 25.0-29.9) Neck pain Swelling of knee joint, right Intra-abdominal abscess Diabetes Elevated liver function tests Intestinal malabsorption following gastrectomy Obesity (BMI 30-39.9) 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 Hypertension Cholecystitis Hyperlipidemia, unspecified Essential hypertension Atherosclerotic cardiovascular disease Fibromyalgia Folliculitis Anxiety Depression History of myocardial infarction Diabetes type 1, uncontrolled 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 Mother CVA (cerebral vascular accident) Sister Hypertension Brother Hypertension Liver cancer Social History Household Members: None Housing: Apartment Are you a primary client care representative to a significant other at home: No Do you presently have visiting nurse or other home services: Yes Unable to assess alcohol history related to: Unable to respond Alcohol intake: never Patient Tobacco Use Status: Never used Tobacco Advance Directives Date on File: 09/17/23 service: No Current occupational status: disabled Current occupation: right hand dominant Review of Systems Const Denies fatigue, Denies fever(s), Denies night sweats, Denies poor appetite and Denies weight loss ENT Reports Normal hearing present, Denies dental pain, Denies dysphagia, Denies hearing loss, Denies mouth pain, Denies odynophagia, Denies throat swelling, Denies tongue swelling and Reports other (Dentition adequate) Card Reports no additional complaints Resp Reports no additional complaints GI Details: Denies abdominal pain, Denies melena, Denies bloating, Denies hematochezia, Reports constipation, Denies GI cramping, Denies dysphagia, Denies excessive flatus, Denies early satiety, Reports heartburn, Denies diarrhea, Denies nausea, Denies odynophagia, Denies vomiting and Denies hematemesis Skin/Breast Denies pruritus, Denies lesions, Denies rash and Denies jaundice Neuro Reports Normal hearing present and Denies Abnormal speech present Endo Denies fatigue Aller/Immun Denies throat swelling and Denies tongue swelling Physical Exam Vital Signs: Last Vital Signs Pulse 73 08/11/24 10:25 BP 117/66 08/11/24 10:25 Pulse Ox 96 08/11/24 10:25 Oxygen Delivery Method Room Air 08/11/24 10:25 BMI result Body Mass Index 30.5 Const General: cooperative, no acute distress, well developed and well groomed Nutritional Appearance: well nourished and obese Orientation/consciousness: oriented to person, oriented to place and oriented to time Limitations: No language barrier HEENT Head: Yes normocephalic and Yes atraumatic Eyes General: appearance normal, both eyes and all related structures Pupils: Equal, round and reactive pupils present Neck Neck: Yes normal visual inspection and Yes no lymphadenopathy Thyroid: Thyroid normal Resp Effort & Inspection: normal respiratory effort and able to speak in complete sentences Auscultation: clear to auscultation bilaterally Cardio Rate: regular rate Rhythm: regular rhythm Heart sounds: Normal, physiologic split S2 sound present Peripheral pulses: radial pulses present and posterior tibial pulses present GI Inspection: No distended, No Abdominal panniculus present and Yes obesity Palpation (GI): Soft to palpation, nontender, no guarding, not rigid and No hepatosplenomegaly present Percussion: Yes normal to percussion Auscultation: normal bowel sounds Rectal Exam - Female: deferred Skin General skin exam: no rashes or lesions noted, turgor normal, skin not dry, no jaundice, No spider nevi and no striae Rashes: no rashes Nails: normal Neuro General: oriented to person, oriented to place and oriented to time Cranial nerves: Yes Equal, round and reactive pupils present and Yes Normal hearing present Speech: No Abnormal speech present Extrem General: Yes normal to inspection, No clubbing, No cyanosis and No edema Psych Appearance: grossly normal and well kempt Mental Status: mental status grossly normal Speech and movement: Normal speech and movement present Affect: normal affect Attitude: cooperative Thought process: Normal thought process present and not confabulating Thought content: Normal thought content present Insight: Fair insight present (Psych) Judgement: Fair judgement present (Psych) Assessment & Plan Assessment & Plan (1) GERD (gastroesophageal reflux disease): Code(s): K21.9 - Gastro-esophageal reflux disease without esophagitis Category: Medical (2) Chronic idiopathic constipation: Code(s): K59.04 - Chronic idiopathic constipation Category: Medical Plan [place] #[employer] Linzess 290 and her esomeprazole. She wants to decrease the LInzess dose as she is having too much fecal urgency. Will lower to 145mcg and titrate. She also c/o bloating and will rx simethicone 125mg chewable. Her nexium works well. ROV next available. Medications: New linaclotide (Linzess) Take first thing in the morning with a full glass of water. 145 mcg PO QAM 30 caps 12RF K58.1 - Irritable bowel syndrome with constipation simethicone (Gas Relief (simethicone)) 125 mg PO BID-QID PRN 90 tabs 12RF abdominal distention Refilled esomeprazole magnesium 40 mg PO DAILY 30 caps 6RF K21.9 - Gastro-esophageal reflux disease without esophagitis Discontinued linaclotide (Linzess) Discontinued Reason: Doctor's Order 290 mcg PO QAM 30 caps 6RF K59.04 - Chronic idiopathic constipation Coding Level of Care Code Est Pt Level 3 (52995) Diagnoses GERD (gastroesophageal reflux disease) K21.9 Chronic idiopathic constipation K59.04
[2024-08-11 10:25] VITALS: BP 117/66; PULSE 73; O2SAT 96; BMI 30.5
--- OUTSIDE RECORDS SUMMARY | 2024-08-11 11:04 | XMS_ITS | Encounter Summary ---
Author Organization [employer] Address 75 [facility] 7t [place] [address] Care Team Providers Care Charge Account Authorizer Name Role Phone Pascual Daly MD Primary Care Provide r Fani Heck PharmD Unavailable [phone] Reason for Visit * Reason Onset Date Comments Chart Prep 08/06/2024 Encounter Details Date Type Department Care Team ([facility] st Contact Info) Description 08/06/2024 Telephone [facility] MEDICINE [address] [place] [address] Pascual Daly MD 230 [place], [place] [phone] Chart Prep Social History Tobacco Use Types [...] Telephone Encounter - Phylicia Falcon [place] - 08/06/2024 9:49 AM EDT Chart Prep Labs: not applicable Images: not applicable Vaccines due: Covid Due and Tdap Due Referrals: Not Applicable Screenings: Mammogram, Eye Exam, and Foot Exam Overdue care gaps: A1C, Glucose, SDOH, and Disability Chart prep for upcoming appt with Dr.Esparza mercado. LB documented in this encounter Plan of Treatment Upcoming Encounters Date Type Department Care Team (Late st Contact Info) Description 08/12/2024 10:15 AM EDT Office Visit [facility] MEDICINE [address] [place] [address] Pascual Daly MD [address] [place] [address] 08/16/2024 11:00 AM EDT Medication Management [facility] MEDICINE [address] [place] [address] Dasia Waters, KristiD [address] [place] [address] 09/16/2024 9:30 AM EDT Office Visit [facility] ADULT DENTAL [address] [place] [address] Christian Winchester DDS [address] [place] [address] 10/28/2024 10:30 AM EDT Clinical Support [facility] CHC MED & PEDS 505 [place] [address] Amanda Fernández, RN 505 [place] [address] 02/17/2025 10:00 AM EDT Office Visit [facility] ADULT DENTAL 230 [place] [address] Primo Gaitanaris [address] [place] [address] documented as of this encounter Goals Goal Patient Goal Type Associated Problems Recent Progress Patient-Stated? Author Blood Pressure < 140/90 Blood Pressure 138/76( 025 10:01 AM EDT) No Fani Heck, PharmD documented as of this encounter Visit Diagnoses Not on filedocumented in this encounter Additional Health Concerns Assessment Noted Time PHQ-9 Depression Total Score: 9 01/29/20 24 11:00 AM EDT documented as of this encounter Care Teams Charge Account Authorizer Relationship Specialty Start Date End Date Pascual Daly MD [address] [place] [address] PCP - General Internal Medicine 02/22/14 Fani Heck, PharmD [address] [place] [phone] Pharmacist Internal Medicine 12/16/22 documented as of this encounter
--- OUTSIDE RECORDS SUMMARY | 2024-08-11 11:04 | XMS_ITS | Encounter Summary ---
Author Organization [employer] Address [address] [facility] [address] 7t [place] [address] Care Team Providers Care Biomedical Engineering Director Name Role Phone Pascual Daly MD Primary Care Provide r Fani Heck PharmD Unavailable [phone] Reason for Visit * Reason Comments Med Refill Encounter Details Date Type Department Care Team ([facility] st Contact Info) Description 03/27/2023 Refill [facility] CHC MED & PEDS [address] [place] [address] Titi Gray FNP Major depressive disorder with [...] 10:15 AM EDT Office Visit [facility] MEDICINE [address] [place] [address] Pascual Daly MD 230 [place] [address] 08/16/2024 11:00 AM EDT Medication Management [facility] MEDICINE [address] [place] [address] Dasia Waters, PharmD [address] [place] [address] 09/16/2024 9:30 AM EDT Office Visit [facility] ADULT DENTAL [address] [place] [address] Christian Winchester DDS [address] [place] [address] 10/28/2024 10:30 AM EDT Clinical Support [facility] CHC MED & PEDS [address] [place] [address] Amanda Fernández, RN 505 [place] [address] 02/17/2025 10:00 AM EDT Office Visit [facility] ADULT DENTAL [address] [place] [address] Gabreila Gaitan 230 [place] [address] documented as of this encounter Goals Goal Patient Goal Type Associated Problems Recent Progress Patient-Stated? Author Blood Pressure < 140/90 Blood Pressure 138/76( 025 10:01 AM EDT) No Fani Heck, Woody documented as of this encounter Visit Diagnoses Diagnosis Major depressive disorder with psychotic features (CMS/HCC) documented in this encounter Additional Health Concerns Assessment Noted Time PHQ-9 Depression Total Score: 9 02/25/20 23 11:02 AM EST documented as of this encounter Care Teams Biomedical Engineering Director Relationship Specialty Start Date End Date Pascual Daly MD 230 [place] [address] PCP - General Internal Medicine 02/22/14 Fani Heck, KristiD 230 [place] [address] Pharmacist Internal Medicine 12/16/22 documented as of this encounter
--- OUTSIDE RECORDS SUMMARY | 2024-08-11 11:04 | XMS_ITS | Encounter Summary ---
Author Organization [employer] Address 75 [facility] 7t [place] [address] Care Team Providers Care Roll Threader Operator Name Role Phone Pascual Daly MD Primary Care Provide r Fani Heck PharmD Unavailable [phone] Encounter Details Date Type Department Care Team (Late st Contact Info) Description 08/02/2024 Orders Only [facility] MEDICINE [address] [place] [address] Pascual Daly MD [address] [place] [address] Social History Tobacco Use Types Packs/Day Years [...] Description 08/12/2024 10:15 AM EDT Office Visit [facility] MED[facility]INE [address] [place] [address] Pascual Daly MD [address] [place] [address] 08/16/2024 11:00 AM EDT Medication Management [facility] MED[facility] [address] [place] [address] Dasia Watesr, KristiD [address] [place] [address] 09/16/2024 9:30 AM EDT Office Visit [facility] ADULT DENTAL [address] [place] [address] Christian Winchester DDS 230 [place] [address] 10/28/2024 10:30 AM EDT Clinical Support [facility] MED [facility] PEDS [address] [place] [address] Amanda Fernández, RN 505 [place] [address] 02/17/2025 10:00 AM EDT Office Visit [facility] ADULT DENTAL [address] [place] [address] Gabriela Gaitan [address] [place] [address] documented as of this encounter Goals Goal Patient Goal Type Associated Problems Recent Progress Patient-Stated? Author Blood Pressure < 140/90 Blood Pressure 138/76( 025 10:01 AM EDT) No Fani Heck, PharmD documented as of this encounter Procedures Procedure Name Priority Date/Time Associated Diagnosis Comments BI MAMMOGRAM SCREENING TOMOSYNTHESIS BILATERAL Routine 08/02/2024 11:03 AM EDT documented in this encounter Results * BI Mammogram Screening Tomosynthesis Bilateral (08/02/2024 11:03 AM EDT) Anatomical Region Laterality Modality Breast Bilateral Mammography 08/02/2024 11:0 3 AM EDT Narrative 08/10/2024 3:27 PM EDT ? [facility] ? [address] ?[place] [address] ?[phone] ? Mammography Report ? Signed ? Patient: Max,Bradnie ?MR#: [id number] ? : 1950 ?Acct:[id number] ? Age/Sex: 74 / F ?ADM Date: 08/02/ ? Loc: HO.MAMMO ? Attending Dr: Pascual Darnell MD ? Ordering Physician: Pascual Darnell MD ?Resu ?? lts: 2Benign Findings ? Date of Service: 04/14/25 ?Follow Up: 1 Year From Orig ?? inal Mammogram ? Procedure(s): MM tomosynthesis screening BI ?? Accession Number(s): [id number] ? cc: Pascual Darnell MD ? EXAMINATION: ?? MM SCREENING DIGITAL BREAST TOMOSYNTHESIS, BILATERAL ? CLINICAL INFORMATION: ? Screening. Asymptomatic. ? COMPARISON: ?? Mammography: Comparison is made with available priors ? TECHNIQUE: ?? Digital breast mammography with tomosynthesis is performed in both the ?? craniocaudal and mediolateral oblique views along with computer-aided ?? detection (CAD). ? FINDINGS: ?? The breasts are extremely dense, which lowers the sensitivity of ?? mammography (ACR BI-RADS breast composition Category d). ?? Circumscribed oval mass upper outer right breast slightly decreased in ?? size to stable dating back to 2018. ?? There are no significant masses, abnormal calcifications, or other ?? abnormalities. ? MM/MM tomosynthesis screening BI ?? IMPRESSION: ?? No mammographic evidence of malignancy. ? ASSESSMENT: ? BI-RADS BI-RADS 2 - Benign Findings ? RECOMMENDATION: ?? Routine annual mammography screening. ? 1 year F/U ? This examination should not preclude the clinical evaluation of a ?? suspicious palpable abnormality. ? This patient's information was entered into a reminder system with a ?? target due date for their next mammogram. ? Electronically signed by: ??Homa Ortiz DO ??08/10/2024 03:23 PM EDT ?? RP ? Dictated By: ?Homa Ortiz DO ? Signed By: ?<Electronically signed by Homa Ortiz, DO in OV> ? 08/10/24 1523 ? DD/ 1103 ? TD/TT: 08/02/24 1116 ? Therapy Teacher: ? Procedure Note Silvestre, Image - 08/10/2024 [facility] [address] [place] [address] [place] [address] Mammography Report Signed Patient: Dino Santana#: [id number] : 1950Acct:[id number] Age/Sex: 74 / FADM Date: 08/02/24 Loc: HO.MAMMO Attending Dr: Pascual Darnell MD Ordering Physician: Pascual Darnell MDResu lts: 2Benign Findings Date of Service: 08/02/24Follow Up: 1 Year From Orig inal Mammogram Procedure(s): MM tomosynthesis screening BI Accession Number(s): [id number] cc: Pascual Darnell MD EXAMINATION: MM SCREENING DIGITAL BREAST TOMOSYNTHESIS, BILATERAL CLINICAL INFORMATION: Screening. Asymptomatic. COMPARISON: Mammography: Comparison is made with available priors TECHNIQUE: Digital breast mammography with tomosynthesis is performed in both the craniocaudal and mediolateral oblique views along with computer-aided detection (CAD). FINDINGS: The breasts are extremely dense, which lowers the sensitivity of mammography (ACR BI-RADS breast composition Category d). Circumscribed oval mass upper outer right breast slightly decreased in size to stable dating back to 2018. There are no significant masses, abnormal calcifications, or other abnormalities. MM/MM tomosynthesis screening BI IMPRESSION: No mammographic evidence of malignancy. ASSESSMENT: BI-RADS BI-RADS 2 - Benign Findings RECOMMENDATION: Routine annual mammography screening. 1 year F/U This examination should not preclude the clinical evaluation of a suspicious palpable abnormality. This patient's information was entered into a reminder system with a target due date for their next mammogram. Electronically signed by: Homa Ortiz DO 08/10/2024 03:23 PM EDT Dictated By: Homa Ortiz DO Signed By: <Electronically signed by Homa Ortiz DO in OV> 08/10/24 1523 DD/ 1103 TD/TT: 08/02/24 1116 Therapy Teacher: us Pascual Terry MD IMG BI PROCEDURES Fin al Result documented in this encounter Visit Diagnoses Not on filedocumented in this encounter Additional Health Concerns Assessment Noted Time PHQ-9 Depression Total Score: 9 01/29/20 24 11:00 AM EDT documented as of this encounter Care Teams Roll Threader Operator Relationship Specialty Start Date End Date Pascual Daly MD [address] [place] [address] PCP - General Internal Medicine 02/22/14 Fani Heck PharmD [address] [place] [address] Pharmacist Internal Medicine 12/16/22 documented as of this encounter
--- OUTSIDE RECORDS SUMMARY | 2024-08-11 11:05 | XMS_ITS | Encounter Summary ---
Author Organization [employer] Address 75 [facility] 7t [place] [address] Care Team Providers Care Hat Steamer Name Role Phone Pascual Daly MD Primary Care Provide r Fani Heck PharmD Unavailable [phone] Reason for Visit * Reason Comments Med Refill Encounter Details Date Type Department Care Team ([facility] Contact Info) Description 07/16/2022 Refill [facility] MEDICINE 230 [place] [address] Pascual Daly MD 230 [place] [address] Social History Tobacco Use Types Packs/Day Years [...] ([facility] Contact Info) Description 08/12/2024 10:15 AM EDT Office Visit [facility] MEDICINE 230 [place] [address] Pascual Daly MD [address] [place] [address] 08/16/2024 11:00 AM EDT Medication Management [facility] MEDICINE 230 [place] [address] Dasia Waters, KristiD 230 [place] [address] 09/16/2024 9:30 AM EDT Office Visit [facility] ADULT DENTAL [address] [place] [address] Christian Winchester DDS 230 [place] [address] 10/28/2024 10:30 AM EDT Clinical Support [facility] MED & PEDS 505 [place] [address] Amanda Fernández, RN 505 [place] [address] 02/17/2025 10:00 AM EDT Office Visit [facility] ADULT DENTAL [address] [place] [address] Gabriela Gaitan 230 [place] [address] documented as of this encounter Goals Goal Patient Goal Type Associated Problems Recent Progress Patient-Stated? Author Blood Pressure < 140/90 Blood Pressure 138/76( 025 10:01 AM EDT) No Fani Heck, KristiD documented as of this encounter Visit Diagnoses Not on filedocumented in this encounter Additional Health Concerns Assessment Noted Time PHQ-9 Depression Total Score: 8 07/05/19 23 9:26 AM EDT documented as of this encounter Care Teams Hat Steamer Relationship Specialty Start Date End Date Pascual Daly MD [address] [place] [address] PCP - General Internal Medicine 02/22/14 Fani Heck, KristiD [address] [place] [address] Pharmacist Internal Medicine 12/16/22 documented as of this encounter
--- OUTSIDE RECORDS SUMMARY | 2024-08-11 11:05 | XMS_ITS | Encounter Summary ---
Author Organization [employer] Address [address] [facility] 7t [place] [address] Care Team Providers Care Belt Machine Operator Name Role Phone Pascual Daly MD Primary Care Provide r Fani Heck PharmD Unavailable [phone] Reason for Visit * Reason Comments Med Refill Encounter Details Date Type Department Care Team (Late st Contact Info) Description 01/14/2024 Refill [facility] CHC MED & PEDS [address] [place] [address] Pascual Daly MD 230 [place] [address] Fibromyalgia Social History Tobacco Use Types Packs/Day [...] Description 08/12/2024 10:15 AM EDT Office Visit [facility] MEDICINE [address] [place] [address] Pascual Daly MD [address] [place] [address] 08/16/2024 11:00 AM EDT Medication Management [facility] MEDICINE [address] [place] [address] Dasia Waters, PharmD 230 [place] [address] 09/16/2024 9:30 AM EDT Office Visit [facility] ADULT DENTAL 230 [place] [address] Christian Winchester DDS [address] [place] [address] 10/28/2024 10:30 AM EDT Clinical Support [facility] CHC MED & PEDS 505 [place] [address] Amanda Fernández, RN 505 [place] [address] 02/17/2025 10:00 AM EDT Office Visit [facility] ADULT DENTAL 230 [place] [address] Gabriela Gaitan [address] [place] [address] documented as of this encounter Goals Goal [...] documented as of this encounter Care Teams Belt Machine Operator Relationship Specialty Start Date End Date Pascual Daly MD [address] [place] [address] PCP - General Internal Medicine 02/22/14 Fani Heck, PharmD [address] [place] [address] Pharmacist Internal Medicine 12/16/22 documented as of this encounter
--- OUTSIDE RECORDS SUMMARY | 2024-08-11 11:05 | XMS_ITS | Encounter Summary ---
Author Organization [employer] Address 75 [facility] 7t [place] [address] Care Team Providers Care Hogshead Liner Name Role Phone Pascual Daly MD Primary Care Provide r Fani Heck PharmD Unavailable [phone] Reason for Visit * Reason Onset Date Comments Med Refill 10/11/2022 Encounter Details Date Type Department Care Team ([facility] st Contact Info) Description 10/11/2022 Telephone [facility] MEDICINE 230 [place] [address] Pascual Daly MD [address] [place], [place] [phone] Med Refill Social History Tobacco Use Types [...] Description 08/12/2024 10:15 AM EDT Office Visit [facility] MEDICINE [address] [place] [address] Pascual Daly MD [address] [place] [address] 08/16/2024 11:00 AM EDT Medication Management [facility] MEDICINE [address] [place] [address] Dasia Waters, KristiD 230 [place] [address] 09/16/2024 9:30 AM EDT Office Visit [facility] ADULT DENTAL [address] [place] [address] Christian Winchester DDS 230 [place] [address] 10/28/2024 10:30 AM EDT Clinical Support [facility] CHC MED & PEDS [address] [place] [address] Amanda Fernández, RN 505 [place] [address] 02/17/2025 10:00 AM EDT Office Visit [facility] ADULT DENTAL [address] [place] [address] Gabriela Gaitan 230 [place] [address] documented as of this encounter Goals Goal [...] documented as of this encounter Care Teams Hogshead Liner Relationship Specialty Start Date End Date Pascual Daly MD 230 [place] [address] PCP - General Internal Medicine 02/22/14 Fani Heck PharmD [address] [place] [address] Pharmacist Internal Medicine 12/16/22 documented as of this encounter
--- OUTSIDE RECORDS SUMMARY | 2024-08-11 11:05 | XMS_ITS | Clinical Summary ---
Author Organization [address] [facility] Address 175 [place] [address] Phone Care Team Providers Care Receiving Tank Operator Name Role Phone Pascual Darnell MD Primary [...] Upcoming Encounters Date Type Department Care Team ([facility] Contact Info) Description 09/02/2024 10:30 AM EDT Consult Orthopedic Surgery [place] [address] [phone] Luciano Smith, DPM [address] [address] Health Maintenance Due Date Last Done Comments [...] Group ID:[id number] Type:Not on file Address: [facility] [place] [address] Care Teams Receiving Tank Operator Relationship Specialty Start Date End Date Pascual Darnell MD [address] [place] [address] PCP - General Internal Medicine 06/18/24
--- OUTSIDE RECORDS SUMMARY | 2024-08-11 11:05 | XMS_ITS | Encounter Summary ---
Author Organization [employer] Address 75 [facility] 7t [place] [address] Care Team Providers Care Mechanical Shovel Operator Name Role Phone Pascual Daly MD Primary Care Provide r Fani Heck PharmD Unavailable [phone] Reason for Visit * Reason Onset Date Comments Med Refill 01/13/2024 Encounter Details Date Type Department Care Team ([facility] st Contact Info) Description 01/13/2024 Telephone [facility] 230 [place] [address] Pascual Daly MD 230 [place], [place] [phone] Med Refill Social History Tobacco Use Types [...] immediate release tablet To be sent to: [facility] - [place], [place] - [address] [place] [address] documented in this encounter Plan of Treatment Upcoming Encounters Date Type Department Care Team ([facility] st Contact Info) Description 08/12/2024 10:15 AM EDT Office Visit [facility] [address] [place] [address] Pascual Daly MD 230 [place] [address] 08/16/2024 11:00 AM EDT Medication Management [facility] [address] [place] [address] Dasia Waters, KristiD 230 [place] [address] 09/16/2024 9:30 AM EDT Office Visit [facility] ADULT DENTAL [address] [place] [address] Christian Winchester DDS [address] [place] [address] 10/28/2024 10:30 AM EDT Clinical Support [facility] PEDS 505 [place] [address] Amanda Fernández, RN 505 [place], [place] 02/17/2025 10:00 AM EDT Office Visit [facility] ADULT DENTAL [address] [place] [address] Gabriela Gaitan [address] [place] [address] documented as of this encounter Goals Goal [...] documented as of this encounter Care Teams Mechanical Shovel Operator Relationship Specialty Start Date End Date Pascual Daly MD [address] [place] [address] PCP - General Internal Medicine 02/22/14 Fani Heck, PharmD [address] [place] [address] Pharmacist Internal Medicine 12/16/22 documented as of this encounter
--- OUTSIDE RECORDS SUMMARY | 2024-08-11 11:05 | XMS_ITS | Encounter Summary ---
Author Organization [employer] Address 75 [facility] 7t [place] [address] Care Team Providers Care Cathode Ray Tube Salvage Processor Name Role Phone Pascual Daly MD Primary Care Provide r Fani Heck PharmD Unavailable [phone] Reason for Visit * Reason Comments Med Refill Encounter Details Date Type Department Care Team (Late st Contact Info) Description 09/26/2023 Refill [facility] MEDICINE [address] [place] [address] Pascual Daly MD [address] [place], [place] [phone] Social History Tobacco Use Types Packs/Day Years [...] 08/12/2024 10:15 AM EDT Office Visit [facility] MEDICINE [address] [place] [address] Pascual Daly MD 230 [place] [address] 08/16/2024 11:00 AM EDT Medication Management [facility] MEDICINE [address] [place] [address] Dasia Waters, PharmD 230 [place] [address] 09/16/2024 9:30 AM EDT Office Visit [facility] ADULT DENTAL [address] [place] [address] Christian Winchester DDS [address] [place] [address] 10/28/2024 10:30 AM EDT Clinical Support [facility] CHC MED & PEDS 505 [place] [address] Amanda Fernández, RN 505 [place] [address] 02/17/2025 10:00 AM EDT Office Visit [facility] ADULT DENTAL [address] [place] [address] Gabriela Gaitan [address] [place] [address] documented as of this encounter Goals Goal [...] documented as of this encounter Care Teams Cathode Ray Tube Salvage Processor Relationship Specialty Start Date End Date Pascual Daly MD [address] [place] [address] PCP - General Internal Medicine 02/22/14 Fani Heck, KristiD [address] [place] [address] Pharmacist Internal Medicine 12/16/22 documented as of this encounter
--- OUTSIDE RECORDS SUMMARY | 2024-08-11 11:05 | XMS_ITS | Encounter Summary ---
Author Organization [employer] Address 75 [facility] 7t [place] [address] Care Team Providers Care Contact Center Engineer Name Role Phone Pascual Daly MD Primary Care Provide r Fani Heck PharmD Unavailable [phone] Encounter Details Date Type Department Care Team ([facility] st Contact Info) Description 09/25/2023 Telephone [facility] MEDICINE [address] [place] [address] Pascual Daly MD 230 [place] [address] Social History Tobacco Use Types Packs/Day Years [...] 10:15 AM EDT Office Visit [facility] MEDICINE [address] [place] [address] Pacsual Daly MD 230 [place] [address] 08/16/2024 11:00 AM EDT Medication Management [facility] MEDICINE [address] [place] [address] Daisa Waters, KristiD 230 [place] [address] 09/16/2024 9:30 AM EDT Office Visit [facility] ADULT DENTAL [address] [place] [address] Christian Winchester DDS [address] [place] [address] 10/28/2024 10:30 AM EDT Clinical Support [facility] CH[facility] MED & PEDS 505 [place] [address] Amanda Fernández, RN 505 [place] [address] 02/17/2025 10:00 AM EDT Office Visit [facility] ADULT DENTAL [address] [place] [address] Gabriela Gaitan [address] [place] [address] documented as of this encounter Goals Goal Patient Goal Type Associated Problems Recent Progress Patient-Stated? Author Blood Pressure < 140/90 Blood Pressure 138/76( 025 10:01 AM EDT) No Fani Heck, PharmD documented as of this encounter Visit Diagnoses Diagnosis Type 2 diabetes mellitus without complication, with long-term current use of insulin ([facility]) documented in this encounter Additional Health Concerns Assessment Noted Time PHQ-9 Depression Total Score: 11 024 10:24 AM EST documented as of this encounter Care Teams Contact Center Engineer Relationship Specialty Start Date End Date Pascual Daly MD [address] [place] [address] PCP - General Internal Medicine 02/22/14 Fani Heck, PharmD [address] [place] [address] Pharmacist Internal Medicine 12/16/22 documented as of this encounter
--- OUTSIDE RECORDS SUMMARY | 2024-08-11 11:05 | XMS_ITS | Encounter Summary ---
Author Organization [employer] Address 75 [facility] 7t [place] [address] Care Team Providers Care Cocoa Room Operator Name Role Phone Pascual Daly MD Primary Care Provide r Fani Heck PharmD Unavailable [phone] Reason for Visit * Reason Comments Med Refill Encounter Details Date Type Department Care Team (Late st Contact Info) Description 08/26/2023 Refill [facility] 230 [place] [address] Momo Rizo MD 230 [place] [address] Benign hypertension Social History Tobacco Use Types [...] 10:15 AM EDT Office Visit [facility] MEDICINE [address] [place] [address] Pascual Daly MD 230 [place] [address] 08/16/2024 11:00 AM EDT Medication Management [facility] MEDICINE [address] [place] [address] Dasia Waters, PharmD 230 [place] [address] 09/16/2024 9:30 AM EDT Office Visit [facility] ADULT DENTAL [address] [place] [address] Christian Winchester DDS [address] [place] [address] 10/28/2024 10:30 AM EDT Clinical Support [facility] CHC MED & PEDS 505 [place] [address] Amanda Fernández, RN 505 [place] [address] 02/17/2025 10:00 AM EDT Office Visit [facility] ADULT DENTAL [address] [place] [address] Gabriela Gaitan [address] [place] [address] documented as of this encounter Goals Goal [...] documented as of this encounter Care Teams Cocoa Room Operator Relationship Specialty Start Date End Date Pascual Daly MD [address] [place] [address] PCP - General Internal Medicine 02/22/14 Fani Heck, KristiD [address] [place] [address] Pharmacist Internal Medicine 12/16/22 documented as of this encounter
--- OUTSIDE RECORDS SUMMARY | 2024-08-11 11:05 | XMS_ITS | Encounter Summary ---
Author Organization [employer] Address 75 [facility] 7t [place] [address] Care Team Providers Care Assembler Metal Building Name Role Phone Pascual Daly MD Primary Care Provide r Fani Heck PharmD Unavailable [phone] Reason for Visit * Reason Onset Date Comments Appointment Request 09/03/2022 Encounter Details Date Type Department Care Team ([facility] st Contact Info) Description 09/03/2022 Telephone [facility] MEDICINE [address] [place] [address] Pascual Daly MD [address] [place], [place] [phone] Appointment Request Social History Tobacco Use Types [...] Office Visit [facility] MEDICINE [address] [place] [address] Pascual Daly MD [address] [place] [address] 08/16/2024 11:00 AM EDT Medication Management [facility] MEDICINE [address] [place] [address] Dasia Waters PharmD [address] [place] [address] 09/16/2024 9:30 AM EDT Office Visit [facility] ADULT DENTAL [address] [place] [address] Christian Winchester DDS [address] [place] [address] 10/28/2024 10:30 AM EDT Clinical Support [facility] MED & PEDS [address] [place] [address] Amanda Fernández, AALIYAH 505 [place] [address] 02/17/2025 10:00 AM EDT Office Visit [facility] ADULT DENTAL [address] [place] [address] Gabriela Gaitan [address] [place] [address] documented as of this encounter Goals Goal [...] documented as of this encounter Care Teams Assembler Metal Building Relationship Specialty Start Date End Date Pascual Daly MD 230 [place] [address] PCP - General Internal Medicine 02/22/14 Fani Heck PharmD [address] [place] [address] Pharmacist Internal Medicine 12/16/22 documented as of this encounter
--- OUTSIDE RECORDS SUMMARY | 2024-08-11 11:05 | XMS_ITS | Encounter Summary ---
Author Organization [employer] Address 75 [facility] 7t [place] [address] Care Team Providers Care Miter Sawyer Name Role Phone Pascual Daly MD Primary Care Provide r Fani Heck PharmD Unavailable [phone] Encounter Details Date Type Department Care Team ([facility] st Contact Info) Description 09/25/2023 Telephone [facility] MEDICINE 230 [place] [address] Pascual Daly MD 230 [place] [address] Social History Tobacco Use Types Packs/Day Years [...] [facility] MEDICINE [address] [place] [address] Pascual Daly MD 230 [place] [address] 08/16/2024 11:00 AM EDT Medication Management [facility] MEDICINE [address] [place] [address] Dasia Waters, KristiD 230 [place] [address] 09/16/2024 9:30 AM EDT Office Visit [facility] ADULT DENTAL 230 [place] [address] Christian Winchester DDS 230 [place] [address] 10/28/2024 10:30 AM EDT Clinical Support [facility] CHC MED & PEDS 505 [place] [address] Amanda Fernández, RN 505 [place] [address] 02/17/2025 10:00 AM EDT Office Visit [facility] ADULT DENTAL 230 [place] [address] Gabriela Gaitan 230 [place] [address] documented as of this encounter Goals Goal [...] documented as of this encounter Care Teams Miter Sawyer Relationship Specialty Start Date End Date Pascual Daly MD 230 [place] [address] PCP - General Internal Medicine 02/22/14 Fani Heck, PharmD [address] [place] [address] Pharmacist Internal Medicine 12/16/22 documented as of this encounter
--- OUTSIDE RECORDS SUMMARY | 2024-08-11 11:05 | XMS_ITS | Encounter Summary ---
Author Organization [employer] Address 75 [facility] 7t [place] [address] Care Team Providers Care Rib Matcher And Fitter Name Role Phone Pascual Daly MD Primary Care Provide r Fani Heck PharmD Unavailable [phone] Reason for Visit * Reason Comments Med Refill Encounter Details Date Type Department Care Team (Late Contact Info) Description 08/08/2022 Refill [facility] WALK-IN CENTER 230 [place] [address] Momo Rizo MD 230 [place] [address] Mild intermittent asthma without complication Social History [...] Description 08/12/2024 10:15 AM EDT Office Visit [facility] MEDICINE 230 [place] [address] Pascual Daly MD 230 [place] [address] 08/16/2024 11:00 AM EDT Medication Management [facility] MEDICINE [address] [place] [address] Dasia Waters PharmD 230 [place] [address] 09/16/2024 9:30 AM EDT Office Visit [facility] ADULT DENTAL 230 [place] [address] Christian Winchester DDS 230 [place] [address] 10/28/2024 10:30 AM EDT Clinical Support [facility] CHC MED & PEDS 505 [place] [address] Amanda Fernández, RN 505 [place] [address] 02/17/2025 10:00 AM EDT Office Visit [facility] ADULT DENTAL 230 [place] [address] Gabriela Gaitan [address] [place] [address] documented as of this encounter Goals Goal Patient Goal Type Associated Problems Recent Progress Patient-Stated? Author Blood Pressure < 140/90 Blood Pressure 138/76( 025 10:01 AM EDT) No Fani Heck PharmD documented as of this encounter Visit Diagnoses Diagnosis Mild intermittent asthma without complication documented in this encounter Additional Health Concerns Assessment Noted Time PHQ-9 Depression Total Score: 8 07/05/19 23 9:26 AM EDT documented as of this encounter Care Teams Rib Matcher And Fitter Relationship Specialty Start Date End Date Pascual Daly MD [address] [place] [address] PCP - General Internal Medicine 02/22/14 Fani Heck PharmD [address] [place] [address], [place] [address] Pharmacist Internal Medicine 12/16/22 documented as of this encounter
--- OUTSIDE RECORDS SUMMARY | 2024-08-11 11:05 | XMS_ITS | Encounter Summary ---
Author Organization [employer] Address 75 [facility] 7t [place] [address] Care Team Providers Care Corporate Sales Representative Name Role Phone Pascual Daly MD Primary Care Provide r Fani Heck PharmD Unavailable [phone] Reason for Visit * Reason Comments Med Refill Encounter Details Date Type Department Care Team (Late Contact Info) Description 10/02/2022 Refill [facility] MEDICINE 230 [place] [address] Titi Gray FNP Major depressive disorder with [...] 10:15 AM EDT Office Visit [facility] MEDICINE 230 [place], [place] [phone] Pascual Daly MD 230 [place], [place] [phone] 08/16/2024 11:00 AM EDT Medication Management [facility] MEDICINE 230 [place] [address] Dasia Waters PharmD 230 [place] [address] 09/16/2024 9:30 AM EDT Office Visit [facility] ADULT DENTAL 230 [place] [address] Christian Winchester DDS 230 [place] [address] 10/28/2024 10:30 AM EDT Clinical Support [facility] CHC MED & PEDS 505 [place] [address] Amanda Fernández, RN 505 [place] [address] 02/17/2025 10:00 AM EDT Office Visit [facility] ADULT DENTAL 230 [place] [address] Gabriela Gatian [address] [place] [address] documented as of this encounter Goals Goal [...] documented as of this encounter Care Teams Corporate Sales Representative Relationship Specialty Start Date End Date Pascual Daly MD [address] [place] [address] PCP - General Internal Medicine 02/22/14 Fani Heck PharmD [address] [place] [address] Pharmacist Internal Medicine 12/16/22 documented as of this encounter
--- OUTSIDE RECORDS SUMMARY | 2024-08-11 11:05 | XMS_ITS | Encounter Summary ---
Author Organization [employer] Address 75 [facility] 7t [place] [address] Care Team Providers Care Turn Out Worker Name Role Phone Pascual Daly MD Primary Care Provide r Fani Heck PharmD Unavailable [phone] Reason for Visit * Reason Comments Med Refill Encounter Details Date Type Department Care Team (Late st Contact Info) Description 03/04/2023 Refill [facility] MEDICINE 230 [place] [address] Pascual Daly MD 230 [place], [place] [phone] Type 2 diabetes mellitus without complication, with long-term current use of insulin ([facility]) Social History Tobacco Use Types Packs/Day Years [...] Office Visit [facility] MEDICINE [address] [place] [address] Pascual Daly MD [address] [place] [address] 08/16/2024 11:00 AM EDT Medication Management [facility] MEDICINE [address] [place] [address] Dasia Waters, PharmD [address] [place] [address] 09/16/2024 9:30 AM EDT Office Visit [facility] ADULT DENTAL [address] [place] [address] Christian Winchester DDS 230 [place] [address] 10/28/2024 10:30 AM EDT Clinical Support [facility] CHC MED & PEDS 505 [place] [address] Amanda Fernández, AALIYAH [address] [place] 02/17/2025 10:00 AM EDT Office Visit [facility] ADULT DENTAL 230 [place] [address] Gabriela Gaitan 230 [place] [address] documented as of this encounter Goals Goal Patient Goal Type Associated Problems Recent Progress Patient-Stated? Author Blood Pressure < 140/90 Blood Pressure 138/76( 025 10:01 AM EDT) No Fani Heck, PharmD documented as of this encounter Visit Diagnoses Diagnosis Type 2 diabetes mellitus without complication, with long-term current use of insulin ([facility]) documented in this encounter Additional Health Concerns Assessment Noted Time PHQ-9 Depression Total Score: 9 02/25/20 23 11:02 AM EST documented as of this encounter Care Teams Turn Out Worker Relationship Specialty Start Date End Date Pascual Daly MD [address] [place] [address] PCP - General Internal Medicine 02/22/14 Fani Heck, PharmD [address] [place] [address] Pharmacist Internal Medicine 12/16/22 documented as of this encounter
--- OUTSIDE RECORDS SUMMARY | 2024-08-11 11:05 | XMS_ITS | Encounter Summary ---
Author Organization [employer] Address 75 [facility] 7t [place] [address] Care Team Providers Care Anchor Tack Puller Name Role Phone Pascual Daly MD Primary Care Provide r Fani Heck PharmD Unavailable [phone] Reason for Visit * Reason Comments Med Refill Encounter Details Date Type Department Care Team (Late st Contact Info) Description 07/20/2023 Refill [facility] MEDICINE 230 [place] [address] Titi Gray FNP Major depressive disorder with [...] Description 08/12/2024 10:15 AM EDT Office Visit [facility] MEDICINE [address] [place] [address] Pascual Daly MD [address] [place] [place] [address] 08/16/2024 11:00 AM EDT Medication Management [facility] MEDICINE [address] [place] [address] Dasia Waters, PharmD [address] [place] [place] [address] 09/16/2024 9:30 AM EDT Office Visit [facility] ADULT DENTAL [address] [place] [address] Christian Winchester DDS 230 [place] [address] 10/28/2024 10:30 AM EDT Clinical Support [facility] CHC MED & PEDS 505 [place] [address] Amanda Fernández, AALIYAH 505 [place] [address] 02/17/2025 10:00 AM EDT Office Visit [facility] ADULT DENTAL [address] [place] [address] Gabriela Gaitan 230 [place] [address] documented as of this encounter Goals Goal [...] documented as of this encounter Care Teams Anchor Tack Puller Relationship Specialty Start Date End Date Pascual Daly MD 230 [place] [address] PCP - General Internal Medicine 02/22/14 Fani Heck, PharmD 230 [place] [address] Pharmacist Internal Medicine 12/16/22 documented as of this encounter
--- OUTSIDE RECORDS SUMMARY | 2024-08-11 11:05 | XMS_ITS | Encounter Summary ---
Author Organization [employer] Address 75 [facility] 7t [place] [address] Care Team Providers Care Defense Travel Administrator Name Role Phone Pascual Daly MD Primary Care Provide r Fani Heck PharmD Unavailable [phone] Reason for Visit * Reason Comments Med Refill Encounter Details Date Type Department Care Team (Late Contact Info) Description 12/28/2022 Refill [facility] MEDICINE 230 [place] [address] Titi Gray FNP Major depressive disorder with [...] Description 08/12/2024 10:15 AM EDT Office Visit [facility] MEDICINE [address] [place], [place] [phone] Pascual Daly MD 230 [place] [address] 08/16/2024 11:00 AM EDT Medication Management [facility] MEDICINE [address] [place] [address] Dasia Waters PharmD 230 [place] [address] 09/16/2024 9:30 AM EDT Office Visit [facility] ADULT DENTAL 230 [place] [address] Christian Winchester DDS 230 [place] [address] 10/28/2024 10:30 AM EDT Clinical Support [facility] CHC MED & PEDS 505 [place] [address] Amanda Fernández, RN 505 [place] [address] 02/17/2025 10:00 AM EDT Office Visit [facility] ADULT DENTAL 230 [place] [address] Gabriela Gaitan [address] [place] [address] documented as of this encounter Goals Goal Patient Goal Type Associated Problems Recent Progress Patient-Stated? Author Blood Pressure < 140/90 Blood Pressure 138/76( 025 10:01 AM EDT) No Fani Heck, PharmD documented as of this encounter Visit Diagnoses Diagnosis Major depressive disorder with psychotic features (CMS/HCC) documented in this encounter Additional Health Concerns Assessment Noted Time PHQ-9 Depression Total Score: 023 10:52 AM EDT documented as of this encounter Care Teams Defense Travel Administrator Relationship Specialty Start Date End Date Pascual Daly MD [address] [place] [address] PCP - General Internal Medicine 02/22/14 Fani Heck, PharmD [address] [place] [address] Pharmacist Internal Medicine 12/16/22 documented as of this encounter
--- OUTSIDE RECORDS SUMMARY | 2024-08-11 11:05 | XMS_ITS | Encounter Summary ---
Author Organization [employer] Address 75 [facility] 7t [place] [address] Care Team Providers Care Mercury Washer Name Role Phone Pascual Daly MD Primary Care Provide r Fani Heck PharmD Unavailable [phone] Reason for Visit * Reason Onset Date Comments FYI 12/31/2023 Encounter Details Date Type Department Care Team ([facility] st Contact Info) Description 12/31/2023 Telephone [facility] MEDICINE 230 [place] [address] Pascual Daly MD 230 [place], [place] [phone] Social History Tobacco Use Types Packs/Day Years [...] any questions you can contact Franky at [phone]. documented in this encounter Plan of Treatment Upcoming Encounters Date Type Department Care Team (Late st Contact Info) Description 08/12/2024 10:15 AM EDT Office Visit [facility] MEDICINE [address] [place] [address] Pascual Daly MD 230 [place] [address] 08/16/2024 11:00 AM EDT Medication Management [facility] MEDICINE [address] [place] [address] Dasia aWters, PharmD 230 [place] [address] 09/16/2024 9:30 AM EDT Office Visit [facility] ADULT DENTAL 230 [place] [address] Christian Winchester DDS 230 [place] [address] 10/28/2024 10:30 AM EDT Clinical Support [facility] CHC MED & PEDS 505 [place] [address] Amanda Fernández, RN 505 [place] [address] 02/17/2025 10:00 AM EDT Office Visit [facility] ADULT DENTAL 230 [place] [address] Primo Gaitanaris 230 [place] [address] documented as of this encounter Goals Goal [...] documented as of this encounter Care Teams Mercury Washer Relationship Specialty Start Date End Date Pascual Daly MD 230 [place] [address] PCP - General Internal Medicine 02/22/14 Fani Heck, PharmD 230 [place] [address] Pharmacist Internal Medicine 12/16/22 documented as of this encounter
--- OUTSIDE RECORDS SUMMARY | 2024-08-11 11:05 | XMS_ITS | Encounter Summary ---
Author Organization [employer] Address 75 [facility] 7t [place] [address] Care Team Providers Care Windows Server Specialist Name Role Phone Pascual Daly MD Primary Care Provide r Fani Heck PharmD Unavailable [phone] Encounter Details Date Type Department Care Team ([facility] Contact Info) Description 08/29/2022 Abstract [facility] MEDICINE 230 [place] [address] Pascual Daly MD 230 [place] [address] Social History Tobacco Use Types Packs/Day Years [...] Description 08/12/2024 10:15 AM EDT Office Visit [facility] MEDICINE 230 [place] [address] Pascual Daly MD 230 [place] [address] 08/16/2024 11:00 AM EDT Medication Management [facility] MEDICINE 230 [place] [address] Dasia Waters, PharmD 230 [place] [address] 09/16/2024 9:30 AM EDT Office Visit [facility] ADULT DENTAL 230 [place] [address] Christian Winchester DDS 230 [place] [address] 10/28/2024 10:30 AM EDT Clinical Support [facility] CHC MED & PEDS 505 [place] [address] Amanda Fernández, RN 505 [place] [address] 02/17/2025 10:00 AM EDT Office Visit [facility] ADULT DENTAL 230 [place] [address] Gabriela Gaitan 230 [place] [address] documented as of this encounter Goals Goal [...] Time PHQ-9 Depression Total Score: 8 07/05/19 9:26 AM EDT documented as of this encounter Care Teams Windows Server Specialist Relationship Specialty Start Date End Date Pascual Daly MD 230 [place] [address] PCP - General Internal Medicine 02/22/14 Fani Heck, KristiD 230 [place] [address] Pharmacist Internal Medicine 12/16/22 documented as of this encounter
--- OUTSIDE RECORDS SUMMARY | 2024-08-11 11:05 | XMS_ITS | Encounter Summary ---
Author Organization [employer] Address [address] [facility] [address] 7t [place] [address] Care Team Providers Care Yarder Name Role Phone Pascual Daly MD Primary Care Provide r Fani Heck PharmD Unavailable [phone] Encounter Details Date Type Department Care Team (Late st Contact Info) Description 03/05/2024 Refill [facility] MEDICINE 230 [place] [address] Jefry Chun Benign hypertension; Type 2 diabetes mellitus without complication, with long-term current use of insulin ([facility]) Social History Tobacco Use Types [...] 08/12/2024 10:15 AM EDT Office Visit [facility] MEDICINE [address] [place] [address] Pascual Daly MD [address] [place] [address] 08/16/2024 11:00 AM EDT Medication Management [facility] MEDICINE [address] [place] [address] Dasia Waters, PharmD [address] [place] [address] 09/16/2024 9:30 AM EDT Office Visit [facility] ADULT DENTAL [address] [place] [address] Christian Winchester DDS 230 [place] [address] 10/28/2024 10:30 AM EDT Clinical Support [facility] CHC MED & PEDS 505 [place] [address] Amanda Fernández, AALIYAH 505 [place] [address] 02/17/2025 10:00 AM EDT Office Visit [facility] ADULT DENTAL [address] [place] [address] Gabriela Gaitan 230 [place] [address] documented as of this encounter Goals Goal Patient Goal Type Associated Problems Recent Progress Patient-Stated? Author Blood Pressure < 140/90 Blood Pressure 138/76( 025 10:01 AM EDT) No Fani Heck, Woody documented as of this encounter Visit Diagnoses Diagnosis Benign hypertension Essential hypertension, benign Type 2 diabetes mellitus without complication, with long-term current use of insulin ([facility]) documented in this encounter Additional Health Concerns Assessment Noted Time PHQ-9 Depression Total Score: 9 01/29/20 24 11:00 AM EDT documented as of this encounter Care Teams Yarder Relationship Specialty Start Date End Date Pascual Daly MD [address] [place] [address] PCP - General Internal Medicine 02/22/14 Fani Heck, Woody [address] [place] [address] Pharmacist Internal Medicine 12/16/22 documented as of this encounter
--- OUTSIDE RECORDS SUMMARY | 2024-08-11 11:05 | XMS_ITS | Encounter Summary ---
Author Organization [employer] Address 75 [facility] 7t [place] [address] Care Team Providers Care Steel Roller Name Role Phone Pascual Daly MD Primary Care Provide r Fani Heck PharmD Unavailable [phone] Reason for Visit * Reason Comments Med Refill Encounter Details Date Type Department Care Team (Late st Contact Info) Description 01/01/2024 Refill [facility] WALK-IN CENTER 230 [place] [address] Momo Rizo MD 230 [place] [address] Social History Tobacco Use Types Packs/Day Years [...] Description 08/12/2024 10:15 AM EDT Office Visit [facility] MEDICINE [address] [place] [address] Pascual Daly MD 230 [place] [address] 08/16/2024 11:00 AM EDT Medication Management [facility] MEDICINE 230 [place] [address] Dasia Waters, PharmD 230 [place] [address] 09/16/2024 9:30 AM EDT Office Visit [facility] ADULT DENTAL 230 [place] [address] Christian Winchester DDS 230 [place] [address] 10/28/2024 10:30 AM EDT Clinical Support [facility] CHC MED & PEDS 505 [place] [address] Amanda Fernández, RN 505 [place] [address] 02/17/2025 10:00 AM EDT Office Visit [facility] ADULT DENTAL 230 [place] [address] Gabriela Gaitan 230 [place] [address] documented as of this encounter Goals Goal [...] documented as of this encounter Care Teams Steel Roller Relationship Specialty Start Date End Date Pascual Daly MD [address] [place] [address] PCP - General Internal Medicine 02/22/14 Fani Heck, PharmD [address] [place] [address] Pharmacist Internal Medicine 12/16/22 documented as of this encounter
--- OUTSIDE RECORDS SUMMARY | 2024-08-11 11:05 | XMS_ITS | Encounter Summary ---
Author Organization [employer] Address 75 [facility] 7t [place] [address] Care Team Providers Care Ticket Machine Operator Name Role Phone Pascual Daly MD Primary Care Provide r Fani Heck PharmD Unavailable [phone] Encounter Details Date Type Department Care Team ([facility] Contact Info) Description 07/01/2022 Abstract [facility] WALK-IN CENTER 230 [place] [address] Pascual Daly MD 230 [place], [place] [phone] Social History Tobacco Use Types Packs/Day Years [...] 08/12/2024 10:15 AM EDT Office Visit [facility] MEDICINE 230 [place] [address] Pascual Daly MD [address] [place] [address] 08/16/2024 11:00 AM EDT Medication Management [facility] MEDICINE 230 [place] [address] Dasia Waters, PharmD [address] [place] [address] 09/16/2024 9:30 AM EDT Office Visit [facility] ADULT DENTAL 230 [place] [address] Christian Winchester DDS 230 [place] [address] 10/28/2024 10:30 AM EDT Clinical Support [facility] CHC MED & PEDS 505 [place] [address] Amanda Fernández, RN 505 [place] [address] 02/17/2025 10:00 AM EDT Office Visit [facility] ADULT DENTAL 230 [place] [address] Gabriela Gaitan 230 [place] [address] documented as of this encounter Goals Goal [...] documented as of this encounter Care Teams Ticket Machine Operator Relationship Specialty Start Date End Date Pascual Daly MD [address] [place] [address] PCP - General Internal Medicine 02/22/14 Fani Heck, KristiD [address] [place] [address] Pharmacist Internal Medicine 12/16/22 documented as of this encounter
--- OUTSIDE RECORDS SUMMARY | 2024-08-11 11:06 | XMS_ITS | Encounter Summary ---
Author Organization [employer] Address [address] [facility] 7t [place] [address] Care Team Providers Care Band Director Name Role Phone Pascual Daly MD Primary Care Provide r Fani Heck PharmD Unavailable [phone] Reason for Visit * Reason Onset Date Comments FYI 12/11/2023 Durable Medical Equipment 12/11/2023 Encounter Details Date Type Department Care Team (Late st Contact Info) Description 12/11/2023 Telephone [facility] MEDICINE [address] [place], [place] [phone] Pascual Daly MD 230 [place], [place] [phone] FYI ; Durable Medical Equipment Social History [...] DME scripts to be sent to [facility] which: [facility] bed Please fax over to [phone] documented in this encounter Plan of Treatment Upcoming Encounters Date Type Department Care Team (Late st Contact Info) Description 08/12/2024 10:15 AM EDT Office Visit [facility] MEDICINE [address] [place] [address] Pascual Daly MD [address] [place] [address] 08/16/2024 11:00 AM EDT Medication Management [facility] MEDICINE [address] [place] [address] Dasia Waters, Woody 230 [place] [address] 09/16/2024 9:30 AM EDT Office Visit [facility] ADULT DENTAL [address] [place] [address] Christian Winchester DDS 230 [place] [address] 10/28/2024 10:30 AM EDT Clinical Support [facility] CHC MED & PEDS 505 [place] [address] Amanda Fernández, RN [address] [place] [address] 02/17/2025 10:00 AM EDT Office Visit [facility] ADULT DENTAL 230 [place] [address] KandyGabriela 230 [place] [address] documented as of this encounter Goals Goal [...] as of this encounter Care Teams Band Director Relationship Specialty Start Date End Date Pascual Daly MD [address] [place] [address] PCP - General Internal Medicine 02/22/14 Fani Heck, PharmD [address] [place] [address] Pharmacist Internal Medicine 12/16/22 documented as of this encounter
--- OUTSIDE RECORDS SUMMARY | 2024-08-11 11:06 | XMS_ITS | Encounter Summary ---
Author Organization [employer] Address [address] [facility] 7t [place] [address] Care Team Providers Care Hospitality Coordinator Name Role Phone Pascual Daly MD Primary Care Provide r Fani Heck PharmD Unavailable [phone] Encounter Details Date Type Department Care Team ([facility] Contact Info) Description 05/29/2022 Abstract [facility] MEDICINE [address] [place] [address] Pascual Daly MD 230 [place] [address] Social History Tobacco Use Types Packs/Day Years [...] Office Visit [facility] MEDICINE [address] [place] [address] Pascual Daly MD 230 [place] [address] 08/16/2024 11:00 AM EDT Medication Management [facility] MEDICINE [address] [place] [address] Dasia Waters, PharmD 230 [place] [address] 09/16/2024 9:30 AM EDT Office Visit [facility] ADULT DENTAL [address] [place] [address] Christian Winchester DDS [address] [place] [address] 10/28/2024 10:30 AM EDT Clinical Support [facility] CHC MED & PEDS 505 [place] [address] Amanda Fernández, RN 505 [place] [address] 02/17/2025 10:00 AM EDT Office Visit [facility] ADULT DENTAL [address] [place] [address] Gabriela Gaitan [address] [place] [address] documented as of this encounter Goals Goal [...] Time PHQ-9 Depression Total Score: 9 04/25/19 11:31 AM EST documented as of this encounter Care Teams Hospitality Coordinator Relationship Specialty Start Date End Date Pascual Daly MD 230 [place] [address] PCP - General Internal Medicine 02/22/14 Fani Heck PharmD 230 [place] [address] Pharmacist Internal Medicine 12/16/22 documented as of this encounter
--- OUTSIDE RECORDS SUMMARY | 2024-08-11 11:06 | XMS_ITS | Encounter Summary ---
Author Organization [employer] Address [address] [facility] 7t [place] [address] Care Team Providers Care Cellar Pumper Name Role Phone Pascual Daly MD Primary Care Provide r Fani Heck PharmD Unavailable [phone] Reason for Visit * Reason Comments Med Refill Encounter Details Date Type Department Care Team (Late st Contact Info) Description 10/21/2023 Refill [facility] MEDICINE 230 [place] [address] Titi Gray FNP Major depressive disorder with [...] Description 08/12/2024 10:15 AM EDT Office Visit [facility] MEDICINE [address] [place] [address] Pascual Daly MD [address] [place] [address] 08/16/2024 11:00 AM EDT Medication Management [facility] MEDICINE [address] [place] [address] Dasia Waters, PharmD [address] [place] [address] 09/16/2024 9:30 AM EDT Office Visit [facility] ADULT DENTAL [address] [place] [address] Christian Winchester DDS 230 [place] [address] 10/28/2024 10:30 AM EDT Clinical Support [facility] CHC MED & PEDS 505 [place] [address] Amanda Fernández, AALIYAH 505 [place] [address] 02/17/2025 10:00 AM EDT Office Visit [facility] ADULT DENTAL [address] [place] [address] Gabriela Gaitan 230 [place] [address] documented as of this encounter Goals Goal [...] documented as of this encounter Care Teams Cellar Pumper Relationship Specialty Start Date End Date Pascual Daly MD 230 [place] [address] PCP - General Internal Medicine 02/22/14 Fani Heck, PharmD 230 [place] [address] Pharmacist Internal Medicine 12/16/22 documented as of this encounter
--- OUTSIDE RECORDS SUMMARY | 2024-08-11 11:06 | XMS_ITS | Encounter Summary ---
Author Organization [employer] Address 75 [facility] 7t [place] [address] Care Team Providers Care Drilling Contractor Name Role Phone Pascual Daly MD Primary Care Provide r Fani Heck PharmD Unavailable [phone] Encounter Details Date Type Department Care Team (Latest Contact Info) Description 05/26/2019 Abstract [facility] CONVERSIONS Dental, Provider, DDS Social History [...] Description 08/12/2024 10:15 AM EDT Office Visit [facility] MEDICINE [address] [place] [address] Pascual Daly MD [address] [place] [address] 08/16/2024 11:00 AM EDT Medication Management [facility] MEDICINE [address] [place] [address] Dasia Waters, PharmD 230 [place] [address] 09/16/2024 9:30 AM EDT Office Visit [facility] ADULT DENTAL 230 [place] [address] Christian Winchester DDS 230 [place] [address] 10/28/2024 10:30 AM EDT Clinical Support [facility] CHC MED & PEDS 505 [place] [address] Amanda Fernández, RN 505 [place] [address] 02/17/2025 10:00 AM EDT Office Visit [facility] ADULT DENTAL [address] [place] [address] Gabriela Gaitan [address] [place] [address] documented as of this encounter Visit Diagnoses Not on filedocumented in this encounter Care Teams Drilling Contractor Relationship Specialty Start Date End Date Pascual Daly MD [address] [place] [address] PCP - General Internal Medicine 02/22/14 Fani Heck, Woody [address] [place] [address] Pharmacist Internal Medicine 12/16/22 documented as of this encounter
--- OUTSIDE RECORDS SUMMARY | 2024-08-11 11:06 | XMS_ITS | Encounter Summary ---
Author Organization [employer] Address [address] [place] [address] 7t [place] [address] Care Team Providers Care Entry Level Account Manager Name Role Phone Pascual Daly MD Primary Care Provide r Fani Heck PharmD Unavailable [phone] Encounter Details Date Type Department Care Team (Late st Contact Info) Description 03/11/2022 Abstract [facility] MEDICINE [address] [place] [address] Pascual Daly MD [address] [place] [address] Social History Tobacco Use Types Packs/Day Years [...] Visit [facility] MEDICINE [address] [place] [address] [phone] Pascual Daly MD 230 [place] [address] 08/16/2024 11:00 AM EDT Medication Management [facility] MEDICINE [address] [place] [address] [phone] Dasia Waters, Woody 230 [place] [address] 09/16/2024 9:30 AM EDT Office Visit [facility] ADULT DENTAL 230 [place] [address] Christian Winchester DDS 230 [place] [address] 10/28/2024 10:30 AM EDT Clinical Support [facility] CHC MED & PEDS 505 [place] [address] Amanda Fernández, RN 505 [place] [address] 02/17/2025 10:00 AM EDT Office Visit [facility] ADULT DENTAL 230 [place] [address] Gabriela Gaitan 230 [place] [address] documented as of this encounter Visit Diagnoses Not on filedocumented in this encounter Care Teams Entry Level Account Manager Relationship Specialty Start Date End Date Pascual Daly MD [address] [place] [address] PCP - General Internal Medicine 02/22/14 Fani Heck PharmD [address] [place] [address] Pharmacist Internal Medicine 12/16/22 documented as of this encounter
--- OUTSIDE RECORDS SUMMARY | 2024-08-11 11:06 | XMS_ITS | Encounter Summary ---
Author Organization [employer] Address [address] [facility] 7t [place] [address] Care Team Providers Care Flocculator Operator Name Role Phone Pascual Daly MD Primary Care Provide r Fani Heck PharmD Unavailable [phone] Reason for Visit * Reason Onset Date Comments FYI 11/06/2023 Encounter Details Date Type Department Care Team ([facility] st Contact Info) Description 11/06/2023 Telephone [facility] MEDICINE 230 [place] [address] Pascual Daly MD 230 [place], [place] [phone] I Social History Tobacco Use Types Packs/Day [...] - 11/06/2023 4:39 PM EDT Tc from [facility] Iker CORDERO PT informing pt has started services For PT 11/06/23 documented in this encounter Plan of Treatment Upcoming Encounters Date Type Department Care Team (Late st Contact Info) Description 08/12/2024 10:15 AM EDT Office Visit [facility] MEDICINE [address] [place] [address] Pascual Daly MD 230 [place] [address] 08/16/2024 11:00 AM EDT Medication Management [facility] MEDICINE [address] [place] [address] Dasia Waters PharmD 230 [place] [address] 09/16/2024 9:30 AM EDT Office Visit [facility] ADULT DENTAL [address] [place] [address] Christian Winchester DDS [address] [place], [place] 10/28/2024 10:30 AM EDT Clinical Support [facility] CHC MED & PEDS 505 [place], [place] [phone] Amanda Fernández, RN 505 [place], [place] 02/17/2025 10:00 AM EDT Office Visit [facility] ADULT DENTAL [address] [place], [place] [phone] Kandy, Gabriela [address] [place], [place] documented as of this encounter Goals [...] documented as of this encounter Care Teams Flocculator Operator Relationship Specialty Start Date End Date Pascual Daly MD [address] [place] [address] PCP - General Internal Medicine 02/22/14 Fani Heck, PharmD [address] [place] [address] Pharmacist Internal Medicine 12/16/22 documented as of this encounter
--- OUTSIDE RECORDS SUMMARY | 2024-08-11 11:06 | XMS_ITS | Encounter Summary ---
Author Organization [employer] Address [address] [place] [address] 7t [place] [address] Care Team Providers Care Day Treatment Clinician/Art Therapist Name Role Phone Pascual Daly MD Primary Care Provide r Fani Heck PharmD Unavailable [phone] Encounter Details Date Type Department Care Team (Late st Contact Info) Description 03/13/[address] [facility] MEDICINE [address] [place] [address] Provider, MD Bill Social History Tobacco Use [...] AM EDT Office Visit [facility] MEDICINE [address] [place] [address] Pascual Daly MD [address] [place] [address] 08/16/2024 11:00 AM EDT Medication Management [facility] MEDICINE [address] [place] [address] Dasia Waters, PharmD 230 [place] [address] 09/16/2024 9:30 AM EDT Office Visit [facility] ADULT DENTAL 230 [place] [address] Christian Winchester DDS [address] [place] [address] 10/28/2024 10:30 AM EDT Clinical Support [facility] CHC MED & PEDS 505 [place] [address] Amanda Fernández, RN 505 [place] [address] 02/17/2025 10:00 AM EDT Office Visit [facility] ADULT DENTAL 230 [place] [address] Gabriela Gaitan 230 [place] [address] documented as of this encounter Visit Diagnoses Not on filedocumented in this encounter Care Teams Day Treatment Clinician/Art Therapist Relationship Specialty Start Date End Date Pascual Daly MD [address] [place] [address] PCP - General Internal Medicine 02/22/14 Fani Heck, KristiD [address] [place] [address] Pharmacist Internal Medicine 12/16/22 documented as of this encounter
--- OUTSIDE RECORDS SUMMARY | 2024-08-11 11:06 | XMS_ITS | Encounter Summary ---
Author Organization [employer] Address [address] [facility] 7t [place] [address] Care Team Providers Care Anesthesia Technician Name Role Phone Pascual Daly MD Primary Care Provide r Fani Heck PharmD Unavailable [phone] Reason for Visit * Reason Onset Date Comments Med Refill 12/15/2023 Encounter Details Date Type Department Care Team ([facility] st Contact Info) Description 12/15/2023 Telephone [facility] MEDICINE 230 [place] [address] Pascual Daly MD 230 [place], [place] [phone] Med Refill Social History Tobacco Use Types [...] immediate release tablet To be sent to: [facility] [place], [place] - [address] [place] [address] documented in this encounter Plan of Treatment Upcoming Encounters Date Type Department Care Team ([facility] st Contact Info) Description 08/12/2024 10:15 AM EDT Office Visit [facility] MEDICINE [address] [place] [address] Pascual Daly MD 230 [place] [address] 08/16/2024 11:00 AM EDT Medication Management [facility] MEDICINE [address] [place] [address] Dasia Waters, PharmD 230 [place] [address] 09/16/2024 9:30 AM EDT Office Visit [facility] ADULT DENTAL [address] [place] [address] Christian Winchester DDS [address] [place] [address] 10/28/2024 10:30 AM EDT Clinical Support [facility] CHC MED & PEDS 505 [place] [address] Amanda Fernández, RN 505 [place], [place] 02/17/2025 10:00 AM EDT Office Visit [facility] ADULT DENTAL [address] [place] [address] KandyPrimoGabriela [address] [place] [address] documented as of this encounter Goals Goal [...] documented as of this encounter Care Teams Anesthesia Technician Relationship Specialty Start Date End Date Pascual Daly MD [address] [place] [address] PCP - General Internal Medicine 02/22/14 Fani Heck, PharmD [address] [place] [address] Pharmacist Internal Medicine 12/16/22 documented as of this encounter
--- OUTSIDE RECORDS SUMMARY | 2024-08-11 11:06 | XMS_ITS | Encounter Summary ---
Author Organization [employer] Address [address] [place] [address] 7t [place] [address] Care Team Providers Care Pull Up Hand Name Role Phone Pascual Daly MD Primary Care Provide r Fani Heck PharmD Unavailable [phone] Encounter Details Date Type Department Care Team (Late st Contact Info) Description 03/11/[address] [facility] MEDICINE [address] [place] [address] Fani Heck, PharmD 230 [place] [address] Social History Tobacco Use Types Packs/Day Years [...] AM EDT Office Visit [facility] MEDICINE [address] [place] [address] [phone] Pascual Daly MD 230 [place] [address] 08/16/2024 11:00 AM EDT Medication Management [facility] MEDICINE [address] [place] [address] Dasia Waters, Woody 230 [place] [address] 09/16/2024 9:30 AM EDT Office Visit [facility] ADULT DENTAL 230 [place] [address] Christian Winchester DDS 230 [place] [address] 10/28/2024 10:30 AM EDT Clinical Support [facility] CHC MED & PEDS 505 [place] [address] Amanda Fernández, RN 505 [place] [address] 02/17/2025 10:00 AM EDT Office Visit [facility] ADULT DENTAL 230 [place] [address] Gabriela Gaitan 230 [place] [address] documented as of this encounter Visit Diagnoses Not on filedocumented in this encounter Care Teams Pull Up Hand Relationship Specialty Start Date End Date Pascual Daly MD [address] [place] [address] PCP - General Internal Medicine 02/22/14 Fani Heck PharmD [address] [place] [address] Pharmacist Internal Medicine 12/16/22 documented as of this encounter
--- OUTSIDE RECORDS SUMMARY | 2024-08-11 11:06 | XMS_ITS | Clinical Summary ---
Author Organization [facility] Address [address] [facility] 7t [place] [address] Care Team Providers Care Wrap Knitting Machine Operator Name Role Phone Pascual Daly MD Primary Care Provide r Fani Heck PharmD Unavailable [phone] Allergies Active Allergy Reactions Criticality Noted Date [...] Active Continuous Glucose Sensor (Dexcom G7 Sensor) [facility] DIRECTED Active Actemra ACTPen 162 MG/0.9ML solution [...] for severe pain. 56 tablet 025 Active oxyCODONE (Roxicodone) 5 MG immediate release tabletIndicatio ns:Fibromyalgia Take 1 tablet (5 mg) by mouth every 12 (twelve) hours if needed for severe pain. Do not start before July 09, 2024. 56 tablet 025 2024 Discontinued(R eorder (will not trigger notification to Pharmacy)) Active Problems Problem Noted Date Diagnosed Date Dental plaque 08/05/2024 Localized gingival recession 08/05/2024 Xerostomia 08/05/2024 Long-term current use of opiate analgesic 2024 Hospital discharge follow-up 10/21/2023 Assessment & Plan (10/21/2023 10:15 AM EDT): Patient admitted to [facility] 09/09/23 after she presented to [place] emergency room due to left-sided chest discomfort as per patient she was visiting family in [place], on August 26 she turned in high [...] 10:17 AM EDT): Mammogram 2019 Normal Pap 12/13 normal, given age no need to continue Colonoscopy done 03/20/2018 Normal S/P gastric bypass 08/27/2022 Assessment & Plan (08/27/2022 10:18 AM EDT): Pt is s/p laparoscopic gastrectomy by [facility] her weight has dropped significantly. She will continue to follow with them. Has no particular complaints. Hair loss 08/27/2022 Assessment & Plan (08/27/2022 10:19 AM EDT): followed by a contract recruiter. 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 Manjinder Gonsales at [facility] as her medical insurance recommended this referral. [...] equation in the estimation of LDL-C. Melquiades SS et al. TEN. 2013;310(19): 2603-3265 (http://education.opendorse.com/faq/TYT203) Chol/HDLC Ratio <5.0 (calc) 4.2 3.7 2.5 [...] Encounters Date Type Department Care Team Description 08/06/2024 Telephone [facility] MEDICINE [address] [place] [phone] Pascual Daly MD Chart Prep 08/05/2024 10:00 AM EDT Office Visit [facility] ADULT DENTAL [address] [place] [address] Gabriela Gaitan Dental plaque (Primary Dx); Localized gingival recession; Xerostomia; Odontoma 08/05/2024 Refill [facility] MEDICINE [address] [place] [address] Pascual Daly MD Fibromyalgia 08/02/2024 Orders Only [facility] MEDICINE [address] [place] [address] Pascual Daly MD 07/29/2024 Orders Only GENERIC EXTERNAL DATA DEPARTMENT Provider, Generic External Data 07/22/2024 10:30 AM EDT Clinical Support [facility] [address] [place] [address] Amanda Fernández, AALIYAH Fibromyalgia (Primary Dx); Long-term current use of opiate analgesic 07/22/2024 Telephone [facility] [address] [place] [address] Amanda Fernández, AALIYAH 07/22/2024 Travel 07/21/2024 Orders Only [facility] [place] [address] Pascual Daly MD Type 2 diabetes mellitus without complication, with long-term current use of insulin ([facility]) (Primary Dx) 07/21/2024 Telephone [facility] MEDICINE [address] [place] [address] Pascual Daly MD 07/14/2024 Telephone [facility] MEDICINE [address] [place] [address] Pascual Daly MD Chart Prep 07/07/2024 Refill [facility] MEDICINE [address] [place], [place] [address] Pascual Daly MD Fibromyalgia 07/07/2024 Orders Only GENERIC EXTERNAL DATA DEPARTMENT Provider, Generic External Data 06/22/2024 Refill [facility] MEDICINE [address] [place] [address] Pascual Daly MD Pain 06/15/2024 Orders Only GENERIC EXTERNAL DATA DEPARTMENT Provider, Generic External Data 06/10/2024 Refill [facility] MEDICINE [address] [place] [address] Pascual Daly MD Fibromyalgia 06/04/2024 Orders Only GENERIC EXTERNAL DATA DEPARTMENT Provider, Generic External Data 05/31/2024 Refill [facility] MEDICINE [address] [place] [address] Nikia Jeter MD Type 2 diabetes mellitus without complication, with long-term current use of insulin ([facility]); Benign hypertension 05/24/2024 Refill [facility] MEDICINE [address] [place] [address] Pascual Daly MD Benign hypertension 05/18/2024 Orders Only GENERIC EXTERNAL DATA DEPARTMENT Provider, Generic External Data 05/13/2024 Telephone [facility] MEDICINE [address] [place] [address] Pascual Daly MD Med Refill 05/13/2024 Refill [facility] MEDICINE [address] [place] [address] Pascual Daly MD Fibromyalgia from Last 3 [...] Sign Reading Time Taken Comments Blood Pressure 138/76 08/05/2024 10:01 AM EDT Pulse 72 05/05/2024 11:28 AM EST Temperature [...] Office Visit [facility] MEDICINE [address] [place] [address] Pascual Daly MD [address] [place] [address] 08/16/2024 11:00 AM EDT Medication Management [facility] MEDICINE [address] [place] [address] Dasia Waters PharmD [address] [place] [address] 09/16/2024 9:30 AM EDT Office Visit [facility] ADULT DENTAL [address] [place] [address] Christian Winchester DDS [address] [place] [address] 10/28/2024 10:30 AM EDT Clinical Support [facility] MED & PEDS 505 [place] [address] Amanda Fernández, AALIYAH [address] [place] [address] 02/17/2025 10:00 AM EDT Office Visit [facility] ADULT DENTAL [address] [place] [address] Kandy, Gabriela [address] [place] [address] Health Maintenance Due Date Last Done Comments CT Colonography 1950 Dental X-Ray: Bitewings 1950 FIT DNA/Cologuard 1950 FIT 1950 FOBT 1950 Sigmoidoscopy 1950 Diabetes: Foot Exam 02/08/1960 Eye Exam 02/08/1960 DTaP/Tdap/Td Vaccines (2 - Td or Tdap) 09/25/2023 09/24/2013, 02/22/2003, 08/21/1992 COVID-19 Vaccine ( season) 2023 04/18/2022, 09/04/2021, 03/05/2021, Additional history exists Diabetes: Urine Protein Screening 07/01/2024 07/02/2023, 01/10/2023, 07/17/2021, Additional history exists SDOH Screening 07/23/2024 07/24/2023 Diabetes: Hemoglobin A1C 08/02/2024 025, 02/17/2024, 01/29/2024, Additional history exists Lipid Panel 10/30/2024 10/31/2023, 06/19, 09/17/2022, Additional history exists Depression Screening 01/28/2025 01/29/2024, 01/29/20 24 Dental Oral Exam 02/05/2025 08/05/2024 Dental Prophylaxis 02/05/2025 08/05/2024 Alcohol/Substance Use Screening 05/04/2025 05/04/2024 Mammogram 08/02/2025 08/02/2024, 05/22, 05/23/2022, Additional history exists Tobacco Screening 08/05/2025 08/05/2024 Dental X-Ray: Full Mouth 08/07/2027 08/05/2024 Colonoscopy 03/20/2028 03/20/2018 Colorectal Cancer Screening 03/20/2028 [...] 10:01 AM EDT) No Fani Heck, KristiD Procedures Procedure Name Priority Date/Time Associated Diagnosis Comments PERIODIC ORAL EVALUATION - ESTABLISHED PATIENT Routine 08/05/2024 10:00 AM EDT PANORAMIC RADIOGRAPHIC IMAGE Routine 08/05/2024 10:00 AM EDT CASE PRESENTATION, DETAILED AND EXTENSIVE TREATMENT PLANNING Routine 08/05/2024 10:00 AM EDT TOPICAL APPLICATION OF FLUORIDE VARNISH Routine 08/05/2024 10:00 AM EDT Dental plaque Localized gingival recession Xerostomia INTRAORAL - PERIAPICAL EACH ADDITIONAL RADIOGRAPHIC IMAGE Routine 08/05/2024 10:00 AM EDT Dental plaque Localized gingival recession Xerostomia 10,11,12 INTRAORAL - PERIAPICAL EACH ADDITIONAL RADIOGRAPHIC IMAGE Routine 08/05/2024 10:00 AM EDT Dental plaque Localized gingival recession Xerostomia 8,9 INTRAORAL - PERIAPICAL EACH ADDITIONAL RADIOGRAPHIC IMAGE Routine 08/05/2024 10:00 AM EDT Dental plaque Localized gingival recession Xerostomia 5,6,7 INTRAORAL - PERIAPICAL FIRST RADIOGRAPHIC IMAGE Routine 08/05/2024 10:00 AM EDT Dental plaque Localized gingival recession Xerostomia ORAL HYGIENE INSTRUCTIONS Routine 08/05/2024 10:00 AM EDT Full PROPHYLAXIS - ADULT Routine 08/05/2024 10:00 AM EDT BI MAMMOGRAM SCREENING TOMOSYNTHESIS BILATERAL Routine 08/02/2024 11:03 AM EDT GLUCOSE, WHOLE BLOOD Routine 07/29/2024 8:53 AM [...] WHOLE BLOOD Routine 05/18/2024 10:17 AM EST POCT GLYCATED HEMOGLOBIN, TOTAL Routine 05/04/2024 10:16 AM EST Type 2 diabetes mellitus without complication, with long-term current use of insulin ([facility]) LIPID PANEL, STANDARD Routine 10/31/2023 10:42 AM EDT ALBUMIN, RANDOM URINE W/CREATININE Routine 07/02/2023 10:06 AM EDT HEPATITIS C VIRAL RNA GENOTYPE, LIPA Routine 01/15/2023 11:08 AM EDT HM COLONOSCOPY Routine 03/20/2018 from Last 3 Months or Most Recently Relevant to Health Maintenance Results * BI Mammogram Screening Tomosynthesis Bilateral (08/02/2024 11:03 AM EDT) Anatomical Region Laterality Modality Breast Bilateral Mammography 08/02/2024 11:0 3 AM EDT Narrative 08/10/2024 3:27 PM EDT ? [facility] [place] ? [address] ?[place] [address] ?[phone] ? Mammography Report ? Signed ? Patient: Max,Brandie ?MR#: [id number] ? : 1950 ?Acct:[id number] ? Age/Sex: 74 / F ?ADM Date: 08/02/ ? Loc: HO.MAMMO ? Attending Dr: Pascual Darnell MD ? Ordering Physician: Pascual Darnell MD ?Resu ?? lts: 2Benign Findings ? Date of Service: 08/02/ ?Follow Up: 1 Year From Orig ?? inal Mammogram ? Procedure(s): MM tomosynthesis screening BI ?? Accession Number(s): [id number] ? cc: Pascual Darnell MD ? EXAMINATION: [...] ??Homa Ortiz DO ??08/10/2024 03:23 PM EDT ? Dictated By: ?Homa Ortiz DO ? Signed By: ?<Electronically signed by Homa Ortiz DO in OV> ? 08/10/24 1523 ? DD/ 1103 ? TD/TT: 08/02/24 1116 ? Biological Aide: ? Procedure Note Fawad Rivers - 08/10/2024 [facility] [address] [place] [address] Dr. Dong, [place] [address] Mammography Report Signed Patient: Ezio SantanaNoemy#: [id number] : 1950Acct:[id number] Age/Sex: 74 / FADM Date: 08/02/24 Loc: HO.MAMMO Attending Dr: Pascual Darnell MD Ordering Physician: Pascual Darnell MDResu lts: 2Benign Findings Date of Service: 08/02/24Follow Up: 1 Year From [facility] Mammogram Procedure(s): MM tomosynthesis screening BI Accession Number(s): [id number] cc: Pascual Darnell MD EXAMINATION: MM SCREENING [...] 08/10/24 1523 DD/ 1103 TD/TT: 08/02/24 1116 Biological Aide: us Pascual Terry MD IMG BI PROCEDURES Fin al Result * (ABNORMAL) Glucose, Whole Blood (07/29/2024 8:53 AM EDT) Only the most recent of5 resultswithin the time period is included. Glucose, Whole Blood 265(H) 60 - 115 mg/dL [facility] Comment:METER #: [id number] 5Testing performed in the Endocrinology Department [address] , [address], [facility]. 07/29/2024 8:53 AM EDT 07/29/2024 9:01 AM EDT us Generic External Data Provider LAB BLOOD ORDERAB LES Final Result Performing Organization Address [facility]/ZIP Co de Phone Number [facility] [address] [place] [phone] * POCT HEATHER-14 Urine Drug Screen (07/22/2024 10:33 AM EDT) Pathologist [facility] Oxycodone Screen, Urine Positive Urine Urine specimen obtained by clean catch procedure / Unknown 07/22/2024 10:33 AM EDT Narrative Amanda Fernández RN - 07/22/2024 10:33 AM EDT Lot# [id number] Exp: 12-08-25 us Pascual Terry MD POINT OF CARE TEST EN TER/EDIT ORDERABLES Final Result * Alkaline Phosphatase, Bone Specific (06/15/2024 11:09 AM EST) [facility] Alkaline Phosphatase, Bone Specific 13.2 5.6 - 29.0 mcg/L [facility] Comment:Reference Range, Pre menopausal (mcg/L) 35-45 years 5.0-18.2THIS TEST WAS PERFORMED AT:[employer]/[id number] [place] [address]PJNSGSUJOHN CORDON MD,PHD 06/15/2024 11:0 9 AM EST 06/15/2024 11:13 AM EST us Generic External Data Provider LAB BLOOD ORDERAB LES Final Result Performing Organization Address City/[facility]/ZIP Co de Phone Number [facility] [address] [place] [phone] * (ABNORMAL) PTH, Intact Without Calcium (06/15/2024 11:09 AM EST) Parathyroid Hormone, Intact 101.8(H) 8.7 - 77.1 pg/mL [facility] 06/15/2024 11:0 9 AM EST 06/15/2024 11:13 AM EST us Generic External Data Provider LAB BLOOD ORDERAB LES Final Result Performing Organization Address City/[facility]/ZIP Co de Phone Number [facility] [address] [place] [address] [phone] * Calcium, Ionized (06/15/2024 11:09 AM EST) Calcium, Ionized 5.3 4.7 - 5.5 mg/dL [facility] Comment:THIS TEST WAS PERFOR MED AT:[facility] [place] [id number] HURLEY MD 06/15/2024 11:0 9 AM EST 06/15/2024 11:13 AM EST us Generic External Data Provider LAB BLOOD ORDERAB LES Final Result Performing Organization Address City/[facility]/ZIP Co de Phone Number [facility] [address] [place] [address] [phone] * (ABNORMAL) POCT HGB A1C (05/04/2024 10:16 AM EST) Hemoglobin A1C 8.9(A) 4.0 - 6.0 % QC Media Lot # [id number] Lot# Expiration Date Blood 05/04/2024 10:1 6 AM EST Pascual Terry MD POINT OF CARE TEST ENTER/EDIT ORDERABLES Edited Result - Final * (ABNORMAL) Lipid Panel, Standard (10/31/2023 10:42 AM EDT) Triglycerides 74 <150 mg/dL [facility] Comment:Desirable Triglyceri de: less than 150 mg/dLBorderline High Triglyceride 150-199 mg/dLHigh Triglyceride: 200-499 mg/dLVery High Triglyceride: greater than or equal to 5OO mg/dL Cholesterol 95 <200 mg/dL [facility] Comment:Desirable Cholestero l: less than 200 mg/dLBorderline High Cholesterol: 200-239 mg/dLHigh Cholesterol: greater than 239 mg/dL LDL Cholesterol Calculated 43 <100 mg/dL [facility] Comment:Desirable LDL: less than 100 mg/dLNear Optimal/Above Optimal LDL: 110- 129 mg/dLBorderline High LDL: 130-159 mg/dLHigh LDL: 160-189 mg/dLVery High LDL: greater than or equal to 190 mg/dL HDL Cholesterol 38(L) >40 mg/dL [facility] Comment:Desirable HDL: great er than 40 mg/dL Note: This HDL assay may give artificially low results in patients with liver disease. 10/31/2023 10:4 2 AM EDT 10/31/2023 10:42 AM EDT us Generic External Data Provider LAB BLOOD ORDERAB LES Final Result [facility] [address] [place] [phone] * (ABNORMAL) Albumin, Random Urine W/Creatinine (07/02/2023 10:06 AM EDT) Creatinine, Urine 163.81 mg/dL [facility] Microalbumin Urine 59.0 mg/L [facility] Microalbum Creatinine Ratio Ur 36.0(H) <30 ug/mg cr [facility] Comment:Albumin/Creatinine R atio Reference Ranges: Normal: < 30 ug/mg creatinine Microalbuminuria: 30 - 300 ug/mg creatinineClinical Albuminuria: > 300 ug/mg creatinine 07/02/2023 10:0 6 AM EDT 07/02/2023 11:41 AM EDT Generic External Data Provider LAB URINE ORDERAB LES Final Result Performing Organization Address City/[facility]/ZIP Co de Phone Number [facility] [address] [place] [address] [phone] * Hepatitis C Viral RNA, Genotype, LiPA (01/15/2023 11:08 AM EDT) [facility] Hepatitis C Genotype Not Detected [facility] Comment: Genotype not detected due [...] characteristics of thisassay have been determined by [employer] [employer], [place]. ??The modificationshave not been cleared or approved by the FDA. ??Thisassay has been validated pursuant to the CLIAregulations and is used for clinical purposes.For additional information, please refer tohttp://education.Flicstart/faq/HCVGenotyping(This link is being provided for informational/educational purposes only.)THIS TEST WAS PERFORMED AT:[employer]/[facility]ITALY[address] [place] [address]LEWPFFDJOHN CORDON MD,PHD 01/15/2023 11:0 8 AM EDT 01/15/2023 11:08 AM EDT [facility] External Provider LAB BLO OD ORDERABLES Final Result Performing Organization Address City/[facility]/ZIP Co de Phone Number [facility] [address] [place] [address] [phone] * Hm Colonoscopy (03/20/2018) Colonoscopy Normal Normal 03/20/2018 Sondra Felix - 03/20/2018 9:09 AM EST Recommended 10 year follow up us Historical Provider HEALTH MAINTENANCE Edited Result - Final from Last 3 Months or Most Recently Relevant to Health Maintenance Insurance [facility] [employer] (HMO D-SNP) [facility]AL [facility] Care Teams Wrap Knitting Machine Operator Relationship Specialty Start Date End Date Pascual Daly MD [address] [place] [address] PCP - General Internal Medicine 02/22/14 Fani Heck, KristiD [address] [place] [address] Pharmacist Internal Medicine 12/16/22
--- OUTSIDE RECORDS SUMMARY | 2024-08-11 11:06 | XMS_ITS | Encounter Summary ---
Author Organization [employer] Address [address] [facility] 7t [place] [address] Care Team Providers Care Drapery Head Former Name Role Phone Pascual Daly MD Primary Care Provide r Fani Heck PharmD Unavailable [phone] Reason for Visit * Reason Comments Med Refill Encounter Details Date Type Department Care Team (Late st Contact Info) Description 10/21/2023 Refill [facility] MED[facility]INE [address] [place] [address] Titi Gray FNP Major depressive disorder with [...] Description 08/12/2024 10:15 AM EDT Office Visit [facility] MEDICINE [address] [place] [address] Pascual Daly MD [address] [place] [phone] 08/16/2024 11:00 AM EDT Medication Management [facility] MEDICINE [address] [place] [address] Dasia Waters, PharmD [address] [place] [address] 09/16/2024 9:30 AM EDT Office Visit [facility] ADULT DENTAL [address] [place] [address] Christian Winchester DDS [address] [place] [address] 10/28/2024 10:30 AM EDT Clinical Support [facility] MED & PEDS [address] [place] [address] Amanda Fernández, AALIYAH [address] [place] [address] 02/17/2025 10:00 AM EDT Office Visit [facility] ADULT DENTAL [address] [place] [address] Gabriela Gaitan [address] [place] [address] documented as of this encounter Goals Goal [...] documented as of this encounter Care Teams Drapery Head Former Relationship Specialty Start Date End Date Pascual Daly MD [address] [place] [address] PCP - General Internal Medicine 02/22/14 Fani Heck, PharmD [address] [place] [address] Pharmacist Internal Medicine 12/16/22 documented as of this encounter
== END 2024-08-11 11:02 | disposition home or self-care (01) ==
LOC: HO.HGI 09:49
PROVIDERS: PCP Internal Medicine; Visit Provider Nurse Practitioner
DX: K21.9 Gastro-esophageal reflux disease without esophagitis (principal); K59.04 Chronic idiopathic constipation
CPT/HCPCS: 99213

== ENCOUNTER → 2024-08-11 09:48 | Outpatient (BNVA) | payer OTHER, SELFPAY | PROVIDERS: PCP Internal Medicine; Visit Provider Nurse Practitioner | DX: K58.1 Irritable bowel syndrome with constipation (principal); K59.04 Chronic idiopathic constipation; K21.9 Gastro-esophageal reflux disease without esophagitis | CPT/HCPCS: 99212 ==

== ENCOUNTER 2024-08-16 09:21 | Outpatient (REF) | payer OTHER, SELFPAY ==
--- OUTSIDE RECORDS SUMMARY | 2024-08-16 10:23 | XMS_ITS | Encounter Summary ---
Author Organization [employer] Address [address] [facility] 7t [place] [address] Care Team Providers Care Senior Cytogenetic Technologist Name Role Phone Pascual Daly MD Primary Care Provide r Fani Heck PharmD Unavailable [phone] Reason for Visit * Reason Comments Med Refill Encounter Details Date Type Department Care Team (Late st Contact Info) Description 08/26/2023 Refill [facility] [address] [place] [address] Momo Rizo MD [address] [place] [address] Benign hypertension Social History Tobacco Use Types [...] Care Team (Late st Contact Info) Description 08/16/2024 11:00 AM EDT Medication Management [facility] MEDIC[facility] [address] [place] [phone] Dasia Waters, PharmD [address] [place] [address] 09/16/2024 9:30 AM EDT Office Visit [facility] ADULT DENTAL [address] [place] [address] Christian Winchester DDS [address] [place] [address] 10/28/2024 10:30 AM EDT Clinical Support [facility] MED & PEDS [address] [place] [address] Amanda Fernández, RN [address] [place] [address] 11/16/2024 11:15 AM EDT Office Visit [facility] MEDICINE [address] [place] [phone] Pascual Daly MD [address] [place] [address] 02/17/2025 10:00 AM EDT Office Visit [facility] ADULT DENTAL [address] [place] [address] Gabriela Gaitan [address] [place] [address] documented as of this encounter Goals Goal Patient Goal Type Associated Problems Recent Progress Patient-Stated? Author Blood Pressure < 140/90 Blood Pressure 150/69( 025 10:00 AM EDT) No Fani Heck, KristiD documented as of this encounter Visit Diagnoses Diagnosis Benign hypertension Essential hypertension, benign documented in this encounter Additional Health Concerns Assessment Noted Time PHQ-9 Depression Total Score: 11 024 10:24 AM EST documented as of this encounter Care Teams Senior Cytogenetic Technologist Relationship Specialty Start Date End Date Pascual Daly MD [address] [place] [address] PCP - General Internal Medicine 02/22/14 Fani Heck, KristiD [address] [place] [phone] Pharmacist Internal Medicine 12/16/22 documented as of this encounter
--- OUTSIDE RECORDS SUMMARY | 2024-08-16 10:23 | XMS_ITS | Encounter Summary ---
Author Organization [email or web address] Address [address] [facility] 7t [place] [address] Care Team Providers Care Ski Edge Painter Name Role Phone Pascual Daly MD Primary Care Provide r Fani Heck PharmD Unavailable [phone] Reason for Visit * Reason Comments Med Refill Encounter Details Date Type Department Care Team (Late st Contact Info) Description 07/20/2023 Refill [facility] [address] [place] [address] Titi Gray FNP Major depressive disorder with [...] Description 08/16/2024 11:00 AM EDT Medication Management [facility] MED[facility]INE [address] [place] [address] Dasia Waters, PharmD [address] [place] [address] 09/16/2024 9:30 AM EDT Office Visit [facility] ADULT DENTAL [address] [place] [address] Christian Winchester DDS [address] [place] [phone] 10/28/2024 10:30 AM EDT Clinical Support [facility] MED [facility] PEDS [address] [place] [address] Amanda Fernández, RN [address] [place] [address] 11/16/2024 11:15 AM EDT Office Visit [facility] MED[facility] [address] [place] [address] Pascual Daly MD [address] [place] [address] 02/17/2025 10:00 AM EDT Office Visit [facility] ADULT DENTAL [address] [place] [address] Gabriela Gaitan [address] [place] [address] documented as of this encounter Goals Goal [...] documented as of this encounter Care Teams Ski Edge Painter Relationship Specialty Start Date End Date Pascual Daly MD [address] [place] [address] PCP - General Internal Medicine 02/22/14 Fani Heck, PharmD [address] [place] [address] Pharmacist Internal Medicine 12/16/22 documented as of this encounter
--- OUTSIDE RECORDS SUMMARY | 2024-08-16 10:23 | XMS_ITS | Encounter Summary ---
Author Organization [employer] Address [address] [facility] 7t [place] [address] Care Team Providers Care Rn Community Name Role Phone Pascual Daly MD Primary Care Provide r Fani Heck PharmD Unavailable [phone] Reason for Visit * Reason Comments Med Refill Encounter Details Date Type Department Care Team (Late st Contact Info) Description 09/26/2023 Refill [facility] [address] [place] [address] Pascual Daly MD [address] [place], [place] [phone] Social History Tobacco Use Types Packs/Day Years [...] Description 08/16/2024 11:00 AM EDT Medication Management [facility] [address] [place] [address] Dasia Waters, PharmD [address] [place] [address] 09/16/2024 9:30 AM EDT Office Visit [facility] [address] [place] [address] Christian Winchester DDS [address] [place] [address] 10/28/2024 10:30 AM EDT Clinical Support [facility] 505 [place] [address] Amanda Fernández, RN [address] [place] [address] 11/16/2024 11:15 AM EDT Office Visit [facility] [address] [place] [address] Pascual Daly MD 230 [place] [address] 02/17/2025 10:00 AM EDT Office Visit [facility] [address] [place] [address] Gabriela Gaitan [address] [place] [address] documented as of this encounter Goals Goal Patient Goal Type Associated Problems Recent Progress Patient-Stated? Author Blood Pressure < 140/90 Blood Pressure 150/69( 025 10:00 AM EDT) No Fani Heck, PharmD documented as of this encounter Visit Diagnoses Not on filedocumented in this encounter Additional Health Concerns Assessment Noted Time PHQ-9 Depression Total Score: 11 024 10:24 AM EST documented as of this encounter Care Teams Rn Community Relationship Specialty Start Date End Date Pascual Daly MD [address] [place] [address] PCP - General Internal Medicine 02/22/14 Fani Heck, KristiD [address] [place] [address] Pharmacist Internal Medicine 12/16/22 documented as of this encounter
--- OUTSIDE RECORDS SUMMARY | 2024-08-16 10:23 | XMS_ITS | Encounter Summary ---
Author Organization [employer] Address [address] [facility] 7t [place] [address] Care Team Providers Care Roof Plumber Name Role Phone Pascual Daly MD Primary Care Provide r Fani Heck PharmD Unavailable [phone] Encounter Details Date Type Department Care Team ([facility] st Contact Info) Description 09/25/2023 Telephone [facility] [address] [place] [address] Pascual Daly MD [address] [place] [address] Social History Tobacco Use Types Packs/Day Years [...] Description 08/16/2024 11:00 AM EDT Medication Management [facility] [address] [place] [address] Dasia Waters, PharmD [address] [place] [phone] 09/16/2024 9:30 AM EDT Office Visit [facility] [address] [place] [address] Christian Winchester DDS [address] [place] [address] 10/28/2024 10:30 AM EDT Clinical Support [facility] [address] [place] [address] Amanda Fernández, RN 505 [place] [address] 11/16/2024 11:15 AM EDT Office Visit [facility] [address] [place] [address] Pascual Daly MD [address] [place] [address] 02/17/2025 10:00 AM EDT Office Visit [facility] [address] [place] [address] Gabriela Gaitan [address] [place] [address] documented as of this encounter Goals Goal Patient Goal Type Associated Problems Recent Progress Patient-Stated? Author Blood Pressure < 140/90 Blood Pressure 150/69( 025 10:00 AM EDT) No Fani Heck, PharmD documented as of this encounter Visit Diagnoses Diagnosis Type 2 diabetes mellitus without complication, with long-term current use of insulin ([facility]) documented in this encounter Additional Health Concerns Assessment Noted Time PHQ-9 Depression Total Score: 11 024 10:24 AM EST documented as of this encounter Care Teams Roof Plumber Relationship Specialty Start Date End Date Pascual Daly MD [address] [place] [address] PCP - General Internal Medicine 02/22/14 Fani Heck, PharmD [address] [place] [address] Pharmacist Internal Medicine 12/16/22 documented as of this encounter
--- OUTSIDE RECORDS SUMMARY | 2024-08-16 10:23 | XMS_ITS | Encounter Summary ---
Author Organization [employer] Address [address] [facility] [address] 7t [place] [address] Care Team Providers Care Post Manager Name Role Phone Pascual Daly MD Primary Care Provide r Fani Heck PharmD Unavailable [phone] Reason for Visit * Reason Comments Med Refill Encounter Details Date Type Department Care Team ([facility] st Contact Info) Description 03/27/2023 Refill [facility] [address] [place] [address] Titi Gray FNP Major depressive disorder with [...] Description 08/16/2024 11:00 AM EDT Medication Management [facility] [address] [place] [address] Dasia Waters, PharmD [address] [place] [address] 09/16/2024 9:30 AM EDT Office Visit [facility] [address] [place] [phone] Christian Winchester DDS [address] [place] [address] 10/28/2024 10:30 AM EDT Clinical Support [facility] [address] [place] [address] Amanda Fernández, RN 505 [place] [address] 11/16/2024 11:15 AM EDT Office Visit [facility] [address] [place] [address] Pascual Daly MD [address] [place] [address] 02/17/2025 10:00 AM EDT Office Visit [facility] [address] [place] [address] Gabriela Gaitan 230 [place] [address] documented as of this encounter Goals Goal Patient Goal Type Associated Problems Recent Progress Patient-Stated? Author Blood Pressure < 140/90 Blood Pressure 150/69( 025 10:00 AM EDT) No Fani Heck, [place]y documented as of this encounter Visit Diagnoses Diagnosis Major depressive disorder with psychotic features (CMS/HCC) documented in this encounter Additional Health Concerns Assessment Noted Time PHQ-9 Depression Total Score: 9 02/25/20 23 11:02 AM EST documented as of this encounter Care Teams Post Manager Relationship Specialty Start Date End Date Pascual Daly MD 230 [place] [address] PCP - General Internal Medicine 02/22/14 Fani Heck, KristiD 230 [place] [address] Pharmacist Internal Medicine 12/16/22 documented as of this encounter
--- OUTSIDE RECORDS SUMMARY | 2024-08-16 10:23 | XMS_ITS | Clinical Summary ---
Author Organization 175 [facility] Address [address] [place] [address] Phone Care Team Providers Care Manufacturing Project Manager Name Role Phone Pascual aDrnell MD Primary Care Provi chio Social History Tobacco Use Types Packs/Day Years Used Date Smoking Tobacco: Never Assessed Comments Unknown Sex and Gender Information Value Date Recorded Sex Assigned at Not on file Legal Sex Female 1:35 PM EDT Gender Identity Not on file Sexual Orientation Not on file Plan of Treatment Upcoming Encounters Date Type Department Care Team ([facility] Contact Info) Description 09/02/2024 10:30 AM EDT Consult Orthopedic Surgery [place] [phone] [phone] Luciano Smith, DPM [address] [address] Health Maintenance Due Date Last Done Comments [...] Type:Not on file Address: AM[facility] [place] [address] Care Teams Manufacturing Project Manager Relationship Specialty Start Date End Date Pascual Darnell MD [address] [place] [address] PCP - General Internal Medicine 06/18/24
--- OUTSIDE RECORDS SUMMARY | 2024-08-16 10:23 | XMS_ITS | Encounter Summary ---
Author Organization [employer] Address [address] [facility] 7t [place] [address] Care Team Providers Care Roll Setter Name Role Phone Pascual Daly MD Primary Care Provide r Fani Heck PharmD Unavailable [phone] Reason for Visit * Reason Comments Diabetes Hypertension Pt has an appt next week to get an ECHO done and also for a Holter Monitor Encounter Details Date Type Department Care Team (Latest Contact Info) Description 08/12/2024 10:15 AM EDT Office Visit [facility] [address] [place], [place] [phone] Pascual Daly MD [address] [place], [place] [phone] Type 2 diabetes mellitus with right eye affected by mild nonproliferative retinopathy without macular edema, with long-term current use of insulin ([facility]) (Primary Dx); Type 2 diabetes mellitus without complication, with long-term current use of insulin ([facility]); Mixed hyperlipidemia; Primary hypertension; Gastroesophageal reflux disease without esophagitis; Coronary artery disease involving [place] coronary artery of [place] heart without angina pectoris Social History Tobacco Use Types Packs/Day Years [...] housing situation today? I have sarahy pantoja 08/12/[address] you li ve. Do you have problems with any of the following? None of the above 08/12/2024 Food Insecurity Answer Date Recorded Within the past 12 months, y ou worried that your food would run out before you got money to buy more: Never True 08/12/2024 Within the past 12 months,th e food you bought just didn't last and you didn't have enough money to get more: Never True Transportation Answer Date Recorded In the past 12 months, has l ack of transportation kept you from medical appts, meetings, work or from getting things needed for daily living? No 08/12/2024 Utilities Answer Date Recorded In the past 12 months, has t he electric, gas, oil or water company threatened to shut off services in your home? No 08/12/2024 Depression Answer Date Recorded Patient Health Questionnaire-2 Score 4 01/29/2024 Internet Access Answer Date Recorded Internet Access Q1 Yes 08/12/2024 Internet Access Q2 Not on file 08/12/2024 Comments Unknown Sex and Gender Information Value Date Recorded Sex Assigned at Female 02/18/2022 10:14 AM EDT Legal Sex Female 10:14 AM EDT Gender Identity Female 02/18/2022 10:14 AM EDT Sexual Orientation Straight 03/26/2022 10 :21 AM EST documented as of this encounter Last Filed Vital Signs Vital Sign Reading Time Taken Comments Blood Pressure 150/69 08/12/2024 10:00 AM EDT pt is experiecing a lot of nightmares, slight chest pain, palpitations and SOB. Pulse 69 08/12/2024 10:00 AM EDT Temperature 35.8 ??C (96.4 ??F) 08/12/2024 1 0:00 AM EDT Respiratory Rate 20 08/12/2024 10:0 0 AM EDT Oxygen Saturation 95% 08/12/2024 10: 00 AM EDT Inhaled Oxygen Concentration - - Weight 70.5 kg (155 lb 6.4 oz) 08/12/2024 10:00 AM EDT Height 147.3 cm (4' 10 ) 08/12/2024 10: 00 AM EDT Body Mass Index 32.48 08/12/2024 10:00 AM EDT documented in this encounter Progress Notes * Pascual Terry MD - 08/12/2024 10:15 AM EDT SUBJECTIVE Brandie Santana is a 74 y.o. female who presents for Diabetes and Hypertension (Pt has an appt next week to get an ECHO done and also for a Holter Monitor ). Diabetes She presents for her follow-up diabetic visit. She has type 2 diabetes mellitus. Pertinent negatives for hypoglycemia include no headaches. Pertinent negatives for diabetes include no chest pain. Hypertension This is a chronic problem. Pertinent negatives include no chest pain, headaches or shortness of breath. Review of Systems Constitutional: Negative for fever. HENT: Negative for sore throat. Respiratory: Negative for cough and shortness of breath. Cardiovascular: Negative for chest pain. Gastrointestinal: Negative for abdominal pain. Neurological: Negative for headaches. Allergies Allergen Reactions Celecoxib Nausea Only and Unknown Lorazepam Unknown Naproxen Unknown Tramadol Hives and Unknown Zolpidem Anxiety and Unknown OBJECTIVE Vitals: 08/12/24 1000 BP: (!) 150/69 BP Location: Left arm Patient Position: Sitting BP Cuff Size: Large adult Pulse: 69 Resp: 20 Temp: 96.4 ??F (35.8 ??C) TempSrc: Temporal SpO2: 95% Weight: 155 lb 6.4 oz (70.5 kg) Height: 4' 10 (1.473 m) Physical Exam Vitals reviewed. Constitutional: Appearance: [...] Addressed This Visit Type 2 diabetes mellitus with right eye affected by mild nonproliferative retinopathy without macular edema, with long-term current use of insulin ([facility]) - Primary Pt here for a f/u She is under the care of Endocrinology office Vashti Glass NP, last seen 03/17/2024 and follows with RN as well, last seen 04/2024 She is on: Tresiba 18 units Fiasp 100-151 unit 151-200 4 units 201-250 5 units 250-300 6 year Over 300 70 units She has a VNA at home. Hgb A1c 08/12/2024: 7.8 from 8.9 Eye exam done on: 12/2023 [facility] Dx with new mild DR OD Microalbumin checked on: 07/02/2023 was: 59 On Losartan 25 mg po daily Plan: Continue current plan as per Endocrinology. Foot check not done Pt reports compliance with Plavix no longer on ASA Pt advised to: adhere to diabetic diet check your blood sugars regularly check your feet on a daily basis. Hyperlipidemia Pt with elevated lipids Most recent lipid profile from: Lab Results Component Value Date TRIG 74 10/31/2023 TRIG 89 07/02/2023 CHOL 95 10/31/2023 CHOL 125 07/02/2023 LDLCHOLCAL 43 10/31/2023 LDLCHOLCAL 62 07/02/2023 HDL 38 (L) 10/31/2023 HDL 46 07/02/2023 she isback on a lower dose of Lipitor (20 ) No longer on 80 started by cardiology. Previously her LFTs were high as a result ot High dose lipitor Repeat LFTs 11/29/2021 back to normal. previous elevation of her LFTs likely related to Statin Repeat LFTs 02/17/2024 back to normal Plan: Repeat Lipid profile, and LFTs Relevant Orders Lipid Panel, Standard Hepatic Function Panel Hypertension Patient is here for a f/u [...] about medication compliance, counseled about weight loss. Repeat BMP F/U 3 months Relevant Orders Basic Metabolic Panel Gastroesophageal reflux disease without esophagitis Under the care of GI, last seen 08/11/2024 Coronary artery disease involving [place] coronary artery of [place] heart without angina pectoris Under the care of Cardiology Dr Uribe Who saw her last on: 07/26/2024 He mentioned: Her cardiac cath showed 30% disease in the ostial left anterior descending artery. There was no clear culprit for the NSTEMI. Mainly risk factor modification. She remains on statins and cholesterol is well controlled. LDL is 42 mg/dL. Due to bariatric surgery history, she is on Plavix and not aspirin. Relevant Orders Hepatic Function Panel CBC auto differential documented in this encounter Miscellaneous Notes * Assessment & Plan Note - Pascual Terry MD - 08/12/2024 10:19 AM EDT Associated Problem(s): Coronary artery disease involving [place] coronary artery of [place] heart without angina pectoris Under the care of Cardiology Dr Uribe Who saw her last on: 07/26/2024 He mentioned: Her cardiac cath showed 30% disease in the ostial left anterior descending artery. There was no clear culprit for the NSTEMI. Mainly risk factor modification. She remains on statins and cholesterol is well controlled. LDL is 42 mg/dL. Due to bariatric surgery history, she is on Plavix and not aspirin. * Assessment & Plan Note - Pascual Terry MD - 08/12/2024 10:17 AM EDT Associated Problem(s): Gastroesophageal reflux disease without esophagitis Under the care of GI, last seen 08/11/2024 * Assessment & Plan Note - Pascual Terry MD - 08/12/2024 10:15 AM EDT Associated Problem(s): Hypertension Patient is here for [...] about medication compliance, counseled about weight loss. Repeat BMP F/U 3 months * Assessment & Plan Note - Pascual Terry MD - 08/12/2024 10:14 AM EDT Associated Problem(s): Hyperlipidemia Pt with elevated lipids Most recent lipid profile from: Lab Results Component Value Date TRIG 74 10/31/2023 TRIG 89 07/02/2023 CHOL 95 10/31/2023 CHOL 125 07/02/2023 LDLCHOLCAL 43 10/31/2023 LDLCHOLCAL 62 07/02/2023 HDL 38 (L) 10/31/2023 HDL 46 07/02/2023 she isback on a lower dose of Lipitor (20 ) No longer on 80 started by cardiology. Previously her LFTs were high as a result ot High dose lipitor Repeat LFTs 11/29/2021 back to normal. previous elevation of her LFTs likely related to Statin Repeat LFTs 02/17/2024 back to normal Plan: Repeat Lipid profile, and LFTs * Assessment & Plan Note - Pascual Terry MD - 08/12/2024 10:12 AM EDT Associated Problem(s): Type 2 diabetes mellitus with right eye affected by mild nonproliferative retinopathy without macular edema, with long-term current use of insulin ([facility]) Pt here for a f/u She is under the care of Endocrinology office Vashti Glass TRACK VEHICLE REPAIRER, last seen 03/17/2024 and follows with RN as well, last seen 04/2024 She is on: Tresiba 18 units Fiasp 100-151 unit 151-200 4 units 201-250 5 units 250-300 6 year Over 300 70 units She has a VNA at home. Hgb A1c 08/12/2024: 7.8 from 8.9 Eye exam done on: 12/2023 [facility] Dx with new mild DR OD Microalbumin checked on: 07/02/2023 was: 59 On Losartan 25 mg po daily Plan: Continue current plan as per Endocrinology. Foot check not done Pt reports compliance with Plavix no longer on ASA Pt advised to: adhere to diabetic diet check your blood sugars regularly check your feet on a daily basis. documented in this encounter Plan of Treatment Upcoming Encounters Date Type Department Care Team (Late st Contact Info) Description 08/16/2024 11:00 AM EDT Medication Management [facility] [address] [place] [address] Dasia Waters, PharmD [address] [place] [address] 09/16/2024 9:30 AM EDT Office Visit [facility] [address] [place] [address] Christian Winchester DDS [address] [place] [address] 10/28/2024 10:30 AM EDT Clinical Support [facility] [address] [place] [address] Amanda Fernández, RN 505 [place] [address] 11/16/2024 11:15 AM EDT Office Visit [facility] [address] [place] [address] Pascual Daly MD [address] [place] [address] 02/17/2025 10:00 AM EDT Office Visit [facility] [address] [place] [address] Gabriela Gaitan [address] [place] [address] Scheduled Orders Name Type Priority Associated Diagnoses Orde r Schedule Lipid Panel, Standard Lab Routine Mixed hyperlipidemia Ordered: 08/12/2024 Basic Metabolic Panel Lab Routine Primary hypertension Ordered: 08/12/2024 Hepatic Function Panel Lab Routine Mixed hyperlipidemia Coronary artery disease involving [place] coronary artery of [place] heart without angina pectoris Ordered: 08/12/2024 CBC auto differential Lab Routine Coronary artery disease involving [place] coronary artery of [place] heart without angina pectoris Expected: 08/12/2024 (Approximate), Expires: 08/12/2025 documented as of this encounter Goals Goal Patient Goal Type Associated Problems Recent Progress Patient-Stated? Author Blood Pressure < 140/90 Blood Pressure 150/69( 025 10:00 AM EDT) No Fani Heck, KristiD documented as of this encounter Procedures Procedure Name Priority Date/Time Associated Diagnosis Comments POCT GLYCATED HEMOGLOBIN, TOTAL Routine 08/12/2024 10:16 AM EDT Type 2 diabetes mellitus without complication, with long-term current use of insulin ([facility]) POCT GLUCOSE Routine 08/12/2024 10:11 AM EDT Type 2 diabetes mellitus without complication, with long-term current use of insulin ([facility]) documented in this encounter Results * (ABNORMAL) POCT HGB A1C (08/12/2024 10:16 AM EDT) Hemoglobin A1C 7.8(A) 4.0 - 6.0 % QC Media Lot # [id number] Lot# Expiration Date , Blood 08/12/2024 10:1 6 AM EDT us Pascual Terry MD POINT OF CARE TEST EN TER/EDIT ORDERABLES Final Result * (ABNORMAL) POCT Glucose (08/12/2024 10:11 AM EDT) Glucose Blood, POC 203(A) 60 - 200 mg/dL QC Media Lot # [id number] Lot# Expiration Date Blood Capillary blood specimen / Unknown 08/12/2024 10:11 AM EDT Pascual Terry MD POINT OF CARE TEST EN TER/EDIT ORDERABLES Final Result documented in this encounter Visit Diagnoses Diagnosis Type 2 diabetes mellitus with right eye affected by mild nonproliferative retinopathy without macular edema, with long-term current use of insulin ([facility])- Primary Type 2 diabetes mellitus without complication, with long-term current use of insulin ([facility]) Mixed hyperlipidemia Primary hypertension Unspecified essential hypertension Gastroesophageal reflux disease without esophagitis Esophageal reflux Coronary artery disease involving [place] coronary artery of [place] heart without angina pectoris documented in this encounter Additional Health Concerns Assessment Noted Time PHQ-9 Depression Total Score: 9 01/29/20 24 11:00 AM EDT documented as of this encounter Care Teams Roll Setter Relationship Specialty Start Date End Date Pascual Daly MD [address] [place] [address] PCP - General Internal Medicine 02/22/14 Fani Heck, PharmD [address] [place] [address] Pharmacist Internal Medicine 12/16/22 documented as of this encounter
--- OUTSIDE RECORDS SUMMARY | 2024-08-16 10:23 | XMS_ITS | Encounter Summary ---
Author Organization [employer] Address 75 [facility] 7t [place] [address] Care Team Providers Care Electron Gun Assembler Name Role Phone Pascual Daly MD Primary Care Provide r Fani Heck PharmD Unavailable [phone] Encounter Details Date Type Department Care Team ([facility] st Contact Info) Description 09/25/2023 Telephone [facility] [address] [place] [address] Pascual Daly MD [address] [place] [address] Social History Tobacco Use Types Packs/Day Years [...] Description 08/16/2024 11:00 AM EDT Medication Management [facility] [address] [place] [address] Dasia Waters, PharmD [address] [place] [address] 09/16/2024 9:30 AM EDT Office Visit [facility] [address] [place] [address] Christian Winchester DDS [address] [place] [address] 10/28/2024 10:30 AM EDT Clinical Support [facility] [address] [place] [address] Amanda Fernández, RN [address] [place] [address] 11/16/2024 11:15 AM EDT Office Visit [facility] [address] [place] [address] Pascual Daly MD [address] [place] [address] 02/17/2025 10:00 AM EDT Office Visit [facility] [address] [place] [address] Gabriela Gaitan [address] [place] [address] documented as of this encounter Goals Goal [...] documented as of this encounter Care Teams Electron Gun Assembler Relationship Specialty Start Date End Date Pascual Daly MD [address] [place] [address] PCP - General Internal Medicine 02/22/14 Fani Heck, PharmD [address] [place] [address] Pharmacist Internal Medicine 12/16/22 documented as of this encounter
--- OUTSIDE RECORDS SUMMARY | 2024-08-16 10:23 | XMS_ITS | Data Portability ---
Author Organization [facility] [place] [facility] [place] Address [address] [place] [id number] Care Team Providers Care Forming Roll Operator Name Role Phone [facility] Referring Provider Assessment Encounter Date Assessment Date Assessment LastModified by Organization Details LastModified Time 04/11/2023 04/11/2023 I provided real -time medical direction via phone for this encounter, and was available for additional phone based assistance as needed. I have reviewed and agree with the Assessment and Plan as documented by the Machine Binder Stripper. Patient given the opportunity to ask questions. Advised to call for another visit over the weekend if not improving in 2 to 3 days however if develops CP/severe SOB/turning blue/uncontrolle d n/v/d or black/bloody emesis or stool/ AMS/ syncope/ hi fever unresponsive to APAP to call 911- verbalized understanding of instructions [email or web address] Not available 04/12/2023 10:53:05 Plan of Treatment [...] Not available Not available Not available 04/11/2023 [id number] RxNorm Anitha Camacho MD [address] [facility],[address], [place], [phone] [facility] 3 14:49:47 4127 Celebrex medicatio n Not available Not available Not available 04/11/2023 [id number] RxNoalex Camacho MD [address] [facility],[address], [place], [phone], [facility] 14:49:57 4128 tramadol medicatio n Not available Not available Not available 04/11/2023 [id number] RxGeovanny Camacho MD [address] [facility],[address], [place], [phone], [employer] 14:50:04 Medications Name Sig Start Date Stop [...] Available Not Available No t Available FreeStyle R[place] Lite kit USE DIRECTED active Not Available [...] Updated DateTime 3 97 % 97 % 73342.5 36 g 18 /min 97.8 [degF] 88 /min 167 mm[Hg] 84 mm[Hg] Not Available [employer] - production 3 14:49:26 Social History None recorded. Functional Status None recorded. Mental Status None recorded. Family History Nothing Reported. Medical History No medical history recorded. Gynecological HistoryNo gynecological history recorded. Obstetrics History GPAL:G 0 P 0 0 0 0 Past Encounters Encounter ID Performer Location Encounter Start Date Encounter Closed Date Diagnosis/Indication Diagnosis SNOMED-CT Code Diagnosis ICD10 Code Diagnosis Note [id number] Anitha Camacho MD [facility] - [facility] [address] [place] [address] 04/11/2023 14:49:23 04/12/2023 10:53:58 Respiratory syncytial virus infection 95209914 B97.4 Continue medication s as prescribed ., [...] Patten Member ID Guarantor Name 04/11/2023 1 [facility] - DOS ON OR AFTER 2022 - DUAL ELIGIBLE - SENIOR LIVING OPTIONS AND ONE CARE (MEDICARE REPLACEMENT/ADV ANTAGE - HMO) Brandei Santana [id number] Brandie Ryanyes Notes Date Note Type Note Provider Name and Address Organization Details Recorded Time 04/11/2023 text/html HPI: 73 year old, [employer]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 Reported has fever and chills, believes her BP is high. Her [employer] worker is with her and member [...] .................. .................. .................. .................. .................. .................. ............... Machine Binder Stripper Note From Teddy Miranda: Pt sts dis not call for [employer]. [facility] set up appt. Pt was in ER yesterday diagnosed with RSV treated RX for ventalin and prednisone. Pt denies cp sob fever nausea diarrhea. Baseline vitals assessed. Lungs clear. No edema. [facility] [place] ..pt declined benzonatate. Pt advised self care and continue with RX meds. Pt education on signs indicating the ER. Machine Binder Stripper Allergies: Lorazepam .................. .................. .................. .................. .................. .................. .................. ............... Disposition: Fulfilled Comments: Reviewed - Johana RNSEGMD: Patient seen yesterday evening [facility]. COvid negative per patient/ RSV +/She is using her albuterol every 4 hours. She is on prednisone. No nausea vomiting.Pat has hx that includes but not limited to: DM2/COPD/HTN/Fe deficiency anemia/hypothyroid ism/MDD with psychotic features/obesity status post laparoscopic gastrectomy/positi ve SUSAN/fibromyalgia. Anitha Camacho MD [address] [facility],[address], [place], [phone], [place] - [employer] 04/12/2023 10:53:56 OBGyn Episode No OBEpisode recorded.
--- OUTSIDE RECORDS SUMMARY | 2024-08-16 10:23 | XMS_ITS | Data Portability ---
Author Organization 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 Plan of Treatment Reminders Order Date Submit Date Provider Last Modified By Organization Details Last Modified Time Details Appointments None recorded. Lab None recorded. Referral None recorded. Procedures None recorded. Surgeries None recorded. Imaging None recorded. Medication Orders oxycodone 5 mg tablet 2023 024 [facility] , [address] [place] [address], [address], 4 21:23:28 oxycodone 5 mg tablet 2023 024 [facility] , [address] [place] [address], [address], 4 13:28:18 Patient TargetsNo targets recorded. Patient InstructionsNo instructions recorded. Reason for Referral None Reported. 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 4 15:49:57 Gastroesophage al reflux disease 631910388 Active 2023 Dori Pena NP [address], [place], [address], [place] [facility] 4 15:51:24 Rheumatoid arthritis 82918570 Active 2023 Dori Pena NP [address], [place], [address], [facility] 4 15:51:29 Mixed anxiety and depressive disorder 936646240 Active 2023 Dori Pena NP [address], [place], [address], [place] - [facility] 4 15:51:45 Obesity 767226193 Active 2023 Dori Pena NP [address], [place], [address], [facility] 4 15:51:51 Closed flail chest 946168647 Active 2023 Dori Pena NP [address], [place], [address], [facility] 4 15:52:35 Asthenia 71026346 Active 2023 Dori Pena NP [address], [place], [address], [facility] 4 15:52:46 Irritable bowel syndrome 35262580 Active 2023 Dori Pena NP [address], [place], [address], [facility] 4 16:06:46 Recurrent falls 857273521 Active 2023 Dori Pena NP [address], [place], [address], [facility] 4 16:38:03 Problem Notes None recorded. Procedures Surgical History Date Name Laterality Status Provider Name and Address Organization Details Recorded Time bypass gastroenterostomy completed Dori Pena, AAKASH [address], [place], [address], [facility] 09/17/2023 15:40:41 Laparoscopic cholecystectomy completed Dori Pena NP [address] [facility] [address], [address], [place], [address], [facility] 09/17/2023 15:41:25 fixed suspension procedure of urinary bladder neck completed Dori Pena NP [address], [place], [address], [facility] 09/17/2023 15:42:01 Appendectomy completed Dori Pena NP [address], [place], [address], [facility] 09/17/2023 15:42:11 bilateral cataract surgery completed Dori Pena NP [address], [address], [place], [address], [facility] 09/17/2023 15:42:26 Imaging Results None recorded. Procedure Notes None recorded. Medical Equipment None Reported. Allergies Allergen ID Allergen Name Allergen Category Reaction Reaction Severity Criticality Documentation Date Start Date Code Code System Note Provider Name and Address Organization Details Recorded Time 09744 celecoxib medicatio n other Not available unabletoasse 09/17/2023 87990 7 RxNorm unkno wn Not Available Not Available Not Available 19634 lorazepam medicatio n other Not available [facility] 09/17/2023 6470 RxNorm unkno wn Not Available Not Available Not Available 29476 tramadol medicatio n other Not available unabletoasse 09/17/2023 50232 RxNorm unkno wn Not Available Not Available Not Available 07208 zolpidem medicatio n other Not available unabletoasse 09/17/2023 81337 RxNorm unkno wn Not Available Not Available [...] Address Organization Details Last Updated DateTime 4 94363.7 8 g 98 /min 18 /min 97.8 [degF] 94 % 94 % 150 mm[Hg] 77 mm[Hg] Dori Pena NP [address] [facility] [address], [place], [address], [facility] 4 10:49:41 Date Recorded Body weight Heart rate Respiratory rate Body temperature Oxygen saturation Oxygen saturation in Arterial blood by Pulse oximetry Systolic blood pressure Diastolic blood pressure Provider Name and Address Organization Details Last Updated DateTime 4 23546.7 8 g 83 /min 18 /min 97 [degF] 98 % 98 % 148 mm[Hg] 74 mm[Hg] Dori Pena NP [address] [facility] [address], [place], [address], [facility] 4 13:29:12 Date Recorded Body weight Heart rate Respiratory rate Body temperature Oxygen saturation Oxygen saturation in Arterial blood by Pulse oximetry Systolic blood pressure Diastolic blood pressure Provider Name and Address Organization Details Last Updated DateTime 4 39579.7 8 g 76 /min 18 /min 97.8 [degF] 97 % 97 % 128 mm[Hg] 78 mm[Hg] Dori Pena NP [address] [facility] [address], [place], [address], [facility] 4 12:05:35 Date Recorded Body weight Heart rate Respiratory rate Body temperature Oxygen saturation Oxygen saturation in Arterial blood by Pulse oximetry Systolic blood pressure Diastolic blood pressure Provider Name and Address Organization Details Last Updated DateTime 4 00076 g 80 /min 18 /min 98 [degF] 95 % 95 % 111 mm[Hg] 60 mm[Hg] Dori Pena NP [address] [facility] [address], [place], [address], [facility] 4 11:40:36 Date Recorded Body weight Heart rate Respiratory rate Body temperature Oxygen saturation Oxygen saturation in Arterial blood by Pulse oximetry Systolic blood pressure Diastolic blood pressure Provider Name and Address Organization Details Last Updated DateTime 4 38429 g 74 /min 18 /min 98.4 [degF] 95 % 95 % 124 mm[Hg] 68 mm[Hg] Dori Pena NP [address] [facility], [facility] [address], [place], [address], [facility] 4 13:12:09 Social History Question Answer Notes LastModified by Organizat ion Details LastModified Time Tobacco Smoking Status Never Smoker Dori Pena NP [address] [facility], [facility] [address], [place], [address], [facility] 09/17/2023 15:39:38 Do You Have An Advance [...] (RSV) vaccine, unspecified 4 completed Radha batista, [facility] 09/19/2023 16:11:12 Tdap 4 completed Radha Stoll null, [facility] 09/19/2023 16:11:26 Td(adult) unspecified formulation 3 completed Radha Jerman null, [facility] 09/19/2023 16:11:43 Td(adult) unspecified formulation 3 completed Radha Jerman null, [facility] 09/19/2023 16:11:51 Pneumococcal conjugate PCV 13 6 completed Radha Jerman null, [facility] 09/19/2023 16:12:53 Pneumococcal conjugate PCV20, polysaccharide [id number] conjugate, adjuvant, PF 4 completed Radha Stoll null, [facility] 09/19/2023 16:13:07 pneumococcal polysaccharide PPV23 1 completed Radha Stoll null, [facility] 09/19/2023 16:13:22 pneumococcal polysaccharide PPV23 4 completed Radha Jerman null, [facility] 09/19/2023 16:13:31 influenza, unspecified formulation 2 [facility] 16:13:47 influenza, unspecified formulation 3 completed Radha Jerman null, [facility] 09/19/2023 16:13:55 MMR 8 completed Radha Jerman [facility], [facility] 09/19/2023 16:14:21 SARS-COV-2 (COVID-19) vaccine, UNSPECIFIED 1 completed Radha Jerman null, [facility] 09/19/2023 16:15:58 SARS-COV-2 (COVID-19) vaccine, UNSPECIFIED 1 completed Radha Jerman null, [facility] 09/19/2023 16:16:13 SARS-COV-2 (COVID-19) vaccine, UNSPECIFIED 1 [facility] 16:16:27 SARS-COV-2 (COVID-19) vaccine, UNSPECIFIED 2 completed Radha Stoll [facility] 09/19/2023 16:17:15 SARS-COV-2 (COVID-19) vaccine, UNSPECIFIED 2 completed Radha Stoll [facility] 09/19/2023 16:21:38 zoster, unspecified formulation 5 completed Radha Stoll [facility] 09/19/2023 16:23:04 zoster, unspecified formulation [address] [facility] 09/19/2023 16:23:18 zoster, unspecified formulation 9 completed [facility] 09/19/2023 16:25:18 Past Encounters Encounter ID Performer Location Encounter Start Date Encounter Closed Date Diagnosis/Indication Diagnosis SNOMED-CT Code Diagnosis ICD10 Code Diagnosis Note [id number] Dori Pena NP [address] [address] 09/17/2023 15:22:09 09/23/2023 14:50:24 Closed flail chest 134324926 S22.5XXD with multiple rib fractures and clavicular [...] If stable no further workup needed. 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 Asthenia 95772537 R53.1 with notable weakness due to injuryPT OT eval and treatsuppo rtive caremonito r Type 1 frank betes mellitus 38294446 E10.9 A1C 8.8%Contin eu:tresiba 30 unit sc qhsinsulin 2-14 SSI sc qidmonitor BS and adjust as needed Hypertensive disorder 38 995029 I10 amlodipine 10 mg po dailylosar zaragoza 100 mg po dailycoreg 6.25 mg bidmonitor bp/vitals 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 610708 E06.3 levothyrox ine 112 mcg dailymonit or tsh as needed Gastroesop hageal reflux disease 597992569 K21.9 esomeprazo le 40 mg o daily Deficiency anemias 67640 3007 D53.9 folic acidvit [id number] Obesity 450778796 E66.9 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 IBSlinzess 290 mcg q ammonitor Coronary arteriosclerosis 65496242 I25.10 hx of MIatorvast atin 20 mg po dailyclopi dogrel 75 mg po q amsee above htn medsmonito r Recurrent falls 43917549 2 R29.6 reports history of falls with bundles hanger at home to help her and balance issuesrepo rts more than 5 falls/year supportive caremonito r [id number] Dori Pena NP [facility] [address] [address] 09/22/2023 14:27:57 09/29/2023 19:16:34 Closed flail chest 082869604 S22.5XXD with multiple rib fractures and clavicular [...] If stable no further workup needed. Asthenia 62190683 R53.1 with notable weakness due to injuryPT OT eval and treatsuppo rtive caremonito r Type 1 frank betes mellitus 25818855 E10.9 BS 81-252 [id number] 8.8%contin ue:tresiba 30 unit sc qhsinsulin 2-14 SSI sc qidmonitor BS and adjust as needed Hypertensive disorder 38 442310 I10 improving lately, boderline highcontam lodipine 10 mg po dailylosar zaragoza 100 mg po dailycoreg 6.25 mg bidmonitor bp/vitals 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 784311 E06.3 contlevoth yroxine 112 mcg dailymonit or tsh as needed Gastroesop hageal reflux disease 602726729 K21.9 esomeprazo le 40 mg o daily Deficiency anemias 79269 3007 D53.9 folic acidvit u53osqowvx Obesity 743061955 E66.9 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 IBSlinzess 290 mcg q ammonitor Coronary arteriosclerosis 08177912 I25.10 hx of MIatorvast atin 20 mg po dailyclopi dogrel 75 mg po q amsee above htn medsmonito r Recurrent falls 22595034 2 R29.6 reports history of falls with bundles hanger at home to help her and balance issuesrepo rts more than 5 falls/year supportive caremonito r Acute cystitis 65308371 N30.00 reports dysuria and occassiona l incontinen ce latelyurin e culture returned showing > 100,000 klebsiella pneumo ssp and started on ceftriaxon e 1gram IM and cefpodoxim e 200 mg po bid x 7 days with probiotic by on provider over the weekend.mo nitor [id number] Jonel Alamo MD [address] [address] 09/23/2023 11:01:43 09/29/2023 19:25:59 Closed fracture of multiple left ribs 7820637503 9066826 S22.42XG see HPIleft rib fxs 2-6 with concern for flail chest , with clavicular fxeval by surgery with no interventi on indicatedm onitor respirator y statusutil ize incentive spirometer monitor for pain controlupd ate surgery with concerns Asthenia 97436390 R53.1 PT OT eval and treatmonit or need for increased support in community Type 1 frank betes mellitus 39362977 E10.9 tresiba 30 units qdSS insulinmon itor glucose and need to titrate Hypertensive disorder 38 050581 I10 norvasc 10 mg qdcoreg 6.25 mg bidlosarta n 100 mg qdcurrentl y elevatedmo nitor need for increased control 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 413688 E06.3 hx of added to PMHmaintai priscilla onsynthroi d 112 mcg qdmonitor tsh prn Gastroesop hageal reflux disease 461104781 K21.9 nexium 40 mg qd continuedm onitor for effect Obesity 615901273 E66.09 dietary eval in patient with baseline DM Mixed anxi ety and depressive disorder 325069057 F41.8 carrying dx requiring multiple medication swill continue out patient medication s includinga bility and ativanmoni tor moodpsych eval prn Rheumatoid arthritis 698 03640 M06.9 remains onenbrel 50 mg q friday Irritable bowel syndrome 80157385 K58.9 ? IBSlinzess 290 mcg q ammonitor Coronary arteriosclerosis 95858924 I25.10 hx of MIatorvast atin 20 mg po dailyclopi dogrel 75 mg po q amsee above htn medsmonito r Recurrent falls 48887672 2 R29.6 reports history of falls with bundles hanger at home to help her and balance issuesrepo rts more than 5 falls/year supportive caremonito r Solitary n odule of lung 699841764 R91.1 question right 4 mm upper lobe nodulecons ider repeat scan in 6-12 months Primary insomnia 7800831 F51.01 continue melatoninm onitor need to titrate Abnormal weight loss 267 979690 R63.4 weight dropped > 12 lbs in a few days from admitappea rs to be error in initial intake weightwill monitor Acute cystitis 16692871 N30.00 now on cefpodoxim e to complete coursemoni tor for recurrent disease [id number] Dori Pena NP [facility] [address] [place] [address] 09/24/2023 09:21:20 09/29/2023 19:39:42 Closed fracture of multiple left ribs 3792697435 5428457 S22.42XG with multiple rib fractures and clavicular [...] in am off pmadjust as needed. Asthenia 43061810 R53.1 PT OT eval and treatmonit or need for increased support in community Type 1 frank betes mellitus 16211130 E10.9 BS controlled conttresib a 30 units qdSS insulinmon itor glucose and need to titrate Hypertensive disorder 38 499958 I10 stable on below regimennor vasc 10 mg qdcoreg 6.25 mg bidlosarta n 100 mg qdcurrentl y elevatedmo nitor need for increased control 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 564180 E06.3 hx of added to PMHmaintai priscilla onsynthroi d 112 mcg qdmonitor tsh prn Gastroesop hageal reflux disease 951749041 K21.9 nexium 40 mg qd continuedm onitor for effect Obesity 619155807 E66.09 dietary eval in patient with baseline DM Rheumatoid arthritis 698 08961 M06.9 remains onenbrel 50 mg q friday Irritable bowel syndrome 10000999 K58.9 ? IBSlinzess 290 mcg q ammonitor Coronary arteriosclerosis 80513498 I25.10 hx of MIatorvast atin 20 mg po dailyclopi dogrel 75 mg po q amsee above htn medsmonito r Recurrent falls 69361093 2 R29.6 reports history of falls with bundles hanger at home to help her and balance issuesrepo rts more than 5 falls/year supportive caremonito r Primary insomnia 0109924 F51.01 continueme latoninmon itor need to titrate Abnormal weight loss 267 755666 R63.4 weight dropped > 12 lbs in a few days from admitappea rs to be error in initial intake weight6/ reweigh pt todaywill monitor Acute cystitis 99912751 N30.00 now on cefpodoxim e to complete courseaysm ptomaticmo nitor for recurrent disease [id number] Dori Pena, AAKASH [facility] [address] [place] [address] 09/29/2023 10:39:23 10/03/2023 11:24:38 Closed fracture of multiple left ribs 8361372318 4693072 S22.42XG with multiple rib fractures and clavicular [...] to left shoulderad just as needed. Asthenia 27189311 R53.1 PT OT eval and treatmonit or need for increased support in community Type 1 frank betes mellitus 75831951 E10.9 BS controlled conttresib a 30 units qdSS insulinmon itor glucose and need to titrate Hypertensive disorder 38 780526 I10 stable on below regimen with slightly high bp likley related to pain, monitorcon tnorvasc 10 mg qdcoreg 6.25 mg bidlosarta n 100 mg qdcurrentl y elevatedmo nitor need for increased control 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 797557 E06.3 hx of added to PMHmaintai priscilla onsynthroi d 112 mcg qdmonitor tsh prn Gastroesop hageal reflux disease 531670055 K21.9 contnexium 40 mg qdmonitor for effect Obesity 661604928 E66.09 dietary evalbaseli ne DMweight today please Rheumatoid arthritis 698 78222 M06.9 remains onenbrel 50 mg q friday Irritable bowel syndrome 88381670 K58.9 ? IBSlinzess 290 mcg q ammonitor Coronary arteriosclerosis 88155328 I25.10 hx of MIatorvast atin 20 mg po dailyclopi dogrel 75 mg po q amsee above htn medsmonito r Recurrent falls 79726576 2 R29.6 reports history of falls with bundles hanger at home to help her and balance issuesrepo rts more than 5 falls/year supportive caremonito r Primary insomnia 4384139 F51.01 continueme latoninmon itor need to titrate Abnormal weight loss 267 121819 R63.4 weight dropped > 12 lbs in a few days from admitappea rs to be error in initial intake weight6/10 reweigh pt todaywill monitor Acute cystitis 63116557 N30.00 resolved cefpodoxim e to complete courseaysm ptomaticmo nitor for recurrent disease Mixed anxi ety and depressive disorder 560214337 F41.8 contaripip razole 20 mg dailyvenla faxine 150 mg po dailyprazo sin 6 mg po qhsmelaton in 3 mg po qhshydroxy zine 10 mg po q 8 hours prn anxiety6/1 0 renew clonazepam 0.5 mg po q 8 hours prn anxietymon itor [id number] [facility] [address] 10/02/2023 13:28:32 10/07/2023 10:08:18 Hypertensive disorder 23221107 I10 stable on below regimen as it comes down to 120s systolic post medication contnorvas c 10 mg qdcoreg 6.25 mg bidlosarta n 100 mg qdmonitor need for increased control Closed fra cture of multiple left ribs 7260569192 2731316 S22.42XG with left rib fxs 2-6 with [...] OT eval and txadjust as needed. Asthenia 75174549 R53.1 PT OT eval and treatmonit or need for increased support in community Type 1 frank betes mellitus 12412756 E10.9 BS controlled glucernaco nttresiba 30 units qdSS insulinmon itor glucose and need to titrate Gastroesop hageal reflux disease 523501211 K21.9 contnexium 40 mg qdmonitor for effect Rheumatoid arthritis 698 20346 M06.9 remains onenbrel 50 mg q friday Irritable bowel syndrome 81977720 K58.9 ? IBSlinzess 290 mcg q ammonitor Coronary arteriosclerosis 43587438 I25.10 hx of MIcoreg 6.25 mg po bidatorvas tatin 20 mg po dailyclopi dogrel 75 mg po q amsee above htn medsmonito r Recurrent falls 32214175 2 R29.6 reports history of falls with bundles hanger at home to help her and balance issuesrepo rts more than 5 falls/year supportive care and therapy here for balance, strengthen ing, gait, mobility, endurancem onitor Abnormal weight loss 267 598130 R63.4 weight dropped > 12 lbs in a few days from admitappea rs to be error in initial intake weight09/28 reweigh pt today10/01 reweight pt today, no weight since 09/21will monitor Mixed anxi ety and depressive disorder 934433171 F41.8 contaripip razole 20 mg dailyvenla faxine 150 mg po dailyprazo sin 6 mg po qhsmelaton in 3 mg po qhshydroxy zine 10 mg po q 8 hours prn anxiety6/ 0 renew clonazepam 0.5 mg po q 8 hours prn anxiety x 14 days10/01 cont as abovemonit or [id number] Dori Pena NP [facility] [address] [facility] [place] [address] 10/06/2023 12:02:36 10/09/2023 09:34:42 Closed fracture of multiple left ribs 7743400610 0959267 S22.42XG with left rib fxs 2-6 with [...] txadjust as needed. Abnormal weight loss 267 937213 R63.4 weight dropped > 12 lbs in a few days from admitappea rs to be error in initial intake weight10/04 160 lbs which is same as 09/22/23will monitor Hypertensive disorder 38 683580 I10 stable on below regimen as it comes down to 120s systolic post medication contnorvas c 10 mg qdcoreg 6.25 mg bidlosarta n 100 mg qdmonitor need for increased control Asthenia 84969413 R53.1 PT OT eval and treatmonit or need for increased support in community Type 1 frank betes mellitus 54615095 E10.9 pt having syrup and gingerale at [...] and need to titrate Rheumatoid arthritis 698 44102 M06.9 remains onenbrel 50 mg q friday Irritable bowel syndrome 14851933 K58.9 with constipati on today, states many days10/05 mon given today, will do supp if no bm by 4 pm10/05 start senna 8.6 mg po daily? IBSlinzess 290 mcg q ammonitor Coronary arteriosclerosis 53966134 I25.10 hx of MIcoreg 6.25 mg po bidatorvas tatin 20 mg po dailyclopi dogrel 75 mg po q amsee above htn medsmonito r Mixed anxi ety and depressive disorder 873887920 F41.8 contaripip razole 20 mg dailyvenla faxine 150 mg po dailyprazo sin 6 mg po qhsmelaton in 3 mg po qhshydroxy zine 10 mg po q 8 hours prn anxiety09/19 0 renew clonazepam 0.5 mg po q 8 hours prn anxiety x 14 days10/01 cont as above10/05 stable today with above planmonito r [id number] Dori Pena NP [facility] [address] [address] 10/08/2023 11:40:06 10/15/2023 15:50:32 Type 1 diabetes mellitus 91485755 E10.9 pt having syrup and gingerale at [...] and need to titrate Irritable bowel syndrome 16709270 K58.9 with constipati on resolved with mom on 7 mon given today10/05 start senna 8.6 mg po daily? IBSlinzess 290 mcg q am10/07 having bm regularly nowmonitor Closed fra cture of multiple left ribs [id number] S22.42XG with left rib fxs 2-6 with [...] txadjust as needed. Abnormal weight loss 267 764027 R63.4 weight dropped > 12 lbs in a few days from admitappea rs to be error in initial intake weight10/04 160 lbs which is same as 09/22/23, ? incorrect [facility] Hypertensive disorder 38 866923 I10 stable on below regimen as it comes down to 120s systolic post medication contnorvas c 10 mg qdcoreg 6.25 mg bidlosarta n 100 mg qdmonitor need for increased control Asthenia 02947990 R53.1 PT OT eval and treatmonit or need for increased support in community Rheumatoid arthritis 698 77388 M06.9 remains onenbrel 50 mg q friday Coronary arteriosclerosis 91293624 I25.10 hx of MIcoreg 6.25 mg po bidatorvas tatin 20 mg po dailyclopi dogrel 75 mg po q amsee above htn medsmonito r Mixed anxi ety and depressive disorder 977488824 F41.8 contaripip razole 20 mg dailyvenla faxine 150 mg po dailyprazo sin 6 mg po qhsmelaton in 3 mg po qhshydroxy zine 10 mg po q 8 hours prn anxiety/ 0 renew clonazepam 0.5 mg po q 8 hours prn anxiety x 14 days10/01 cont as above10/05 stable today with above plan10/07 stable today with above planmonito r Hyperkalemia 95151348 E8 7.5 k of 5.7 on give kayexalate 15 gm today10/08 bmp in ammonitor for additional e lyte abbormalit ies [id number] Dori Pena NP [address] [address] 10/09/2023 13:08:06 10/15/2023 16:27:22 Closed fracture of multiple left ribs [id number] S22.42XG resolving with left rib fxs 2-6 [...] prnadjust as needed outpt with pcp Hyperkalemia 18226930 E8 7.5 k of 5.7 on give kayexalate 15 gm on 10/07monito r for additional e lyte abnormalit ies outpt with pcp Type 1 frank betes mellitus 10062325 E10.9 BS slightly high while at rehab with eating sugary foods/drin ksPlan: diet sodas and diet syrup and less sugary choicescon tglucernat resiba 30 units qdSS insulin with meals as per home schedmonit or glucose and need to titrate outpt with pcp outpt Irritable bowel syndrome 30498647 K58.9 with constipati on resolvedse nna 8.6 mg po daily (started at rehab)? IBSlinzess 290 mcg q ammonitor with pcp outpt Abnormal weight loss 267 393423 R63.4 weight dropped > 12 lbs in a few days from admitappea rs to be error in initial intake weight10/04 160 lbs which is same as 09/22/23, ? incorrect admit weight but seems stable nowmonitor oupt with pcp Hypertensive disorder 38 315071 I10 stable on below regimen as it comes down to 120s systolic post medication contnorvas c 10 mg qdcoreg 6.25 mg bidlosarta n 100 mg qdmonitor need for increased control outpt with pcp Asthenia 19326088 R53.1 PT OT eval and treat outpt prnmonitor need for increased support in community with pcp Rheumatoid arthritis 698 61635 M06.9 remains onenbrel 50 mg q fridaymoni tor outpt with pcp Coronary arteriosclerosis 94427553 I25.10 hx of MIcoreg 6.25 mg po bidatorvas tatin 20 mg po dailyclopi dogrel 75 mg po q amsee above htn medsmonito r outpt wtih pcp 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 contaripip razole 20 mg dailyvenla faxine 150 mg po dailyprazo sin 6 mg po qhsmelaton in 3 mg po qhshydroxy zine 10 mg po q 8 hours prn anxietyclo nazepam 0.5 mg po q 8 hours prn anxietymon itor outpt with pcp Gastroesop hageal reflux disease 860569434 K21.9 contnexium 40 mg qdmonitor for effect outpt with pcp Recurrent falls 44774830 2 R29.6 reports history of falls with bundles hanger at home to help her and balance issuesrepo rts more than 5 falls/year supportive care and therapy here for balance, strengthen ing, gait, mobility, endurance outpt rpnmonitor outpt with pcp 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 882370 E06.3 hx of added to PMHmaintai priscilla onsynthroi d 112 mcg qdmonitor tsh prn with pcp Obesity 188120281 E66.09 dietary evalbaseli ne DMweight to be monitored with pcp outpt Primary insomnia 9732878 F51.01 continueme latoninmon itor need to titrate outpt Acute cystitis 08309053 N30.00 resolved cefpodoxim e to complete courseaysm ptomaticmo nitor for recurrent disease outpt with pcp Health Concerns Section Related Observation LastModified by Organization Detai ls LastModified Time None Recorded Concern Status LastModified by Organization Details LastModified Time None Recorded Advance Directives Directive N: Payers Encounter Date Sequence Insurance Name Policy Number Policy Patten Covered Member ID Patten Member ID Guarantor Name 09/29/[address] [facility] - DOS ON OR AFTER 2022 - [place]V ANTAGE - PPO) Brandie Luevano [id number] Brandie Luevano 10/02/[address] [facility] - DOS ON OR AFTER 2022 - [place] - [place]PO) Brandie Luevano [id number] Brandie Luevano 10/06/2023 1 [facility] - DOS ON OR AFTER 2022 - [place]V [place] - [place]PO) Brandie Tanga [id number] Brandie Luevano 10/08/2023 1 [facility] - DOS ON OR AFTER 2022 - [place]V [place] - [place]PO) Brandie Luevano [id number] Brandie Luevano 10/09/2023 1 [facility] - DOS ON OR AFTER 2022 - [place]V ANTAGE - [place]PO) Brandie Luevano [id number] Brandie Luevano Notes Date Note Type Note [...] a cane usually Dori Pena, AAKASH [address] [facility], [address], [place], [address], [place] [employer] 09/29/2023 11:09:33 10/02/2023 text/html Pt is seen [...] is sitting up in bed with 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 She has her sling in place [...] a cane usually Dori Pena, AAKASH [address] [facility], [address], [place], [address], [facility] [employer] 10/02/2023 13:48:50 10/06/2023 text/html Pt is seen for a n acute rounding visit. Brandie is working here at [facility] and is feeling good and more mobile lately with left sling in place. She continues with therapy and making gains. She was treated for a UTI when she first came to [facility] and denies any urinary symptoms. Nursing [...] a cane usually Dori Pena NP [address] [facility], [address], [place], [address], [employer] 10/06/2023 12:26:22 10/08/2023 text/html Pt is seen [...] in a sling for comfort. While at [facility]:She was treated for a UTI when she first came to [facility] and denies any urinary symptoms. Nursing [...] a cane usually Dori Pena NP [address] [facility], [address], [place], [address], [employer] 10/08/2023 12:05:52 10/09/2023 text/html Pt is seen [...] in a sling for comfort. While at [facility]:She was treated for a UTI when she first came to [facility] and denies any urinary symptoms. Nursing [...] a cane usually Dori Pena NP [address] [facility], [address], [place], [address], [facility] [employer] 10/09/2023 16:50:56 OBGyn Episode No OBEpisode recorded.
--- OUTSIDE RECORDS SUMMARY | 2024-08-16 10:24 | XMS_ITS | Encounter Summary ---
Author Organization [employer] Address [address] [facility] 7t [place] [address] Care Team Providers Care Balancer Name Role Phone Pascual Daly MD Primary Care Provide r Fani Heck PharmD Unavailable [phone] Reason for Visit * Reason Comments Med Refill Encounter Details Date Type Department Care Team (Late st Contact Info) Description 03/04/2023 Refill [facility] [address] [place] [address] Pascual Daly MD [address] [place], [place] [phone] Type 2 diabetes mellitus without complication, with long-term current use of insulin ([facility]) Social History Tobacco Use Types [...] Description 08/16/2024 11:00 AM EDT Medication Management [facility] [address] [place] [address] Dasia Waters, PharmD [address] [place] [address] 09/16/2024 9:30 AM EDT Office Visit [facility] [address] [place] [address] Christian Winchester DDS [address] [place] [address] 10/28/2024 10:30 AM EDT Clinical Support [facility] [address] [place] [address] Amanda Fernández, RN [address] [place] [address] 11/16/2024 11:15 AM EDT Office Visit [facility] [address] [place] [address] Pascual Daly MD [address] [place] [address] 02/17/2025 10:00 AM EDT Office Visit [facility] [address] [place], [place] [phone] Gabriela Gaitan [address] [place] [address] documented as of this encounter Goals Goal Patient Goal Type Associated Problems Recent Progress Patient-Stated? Author Blood Pressure < 140/90 Blood Pressure 150/69( 025 10:00 AM EDT) No Fani Heck, PharmD documented as of this encounter Visit Diagnoses Diagnosis Type 2 diabetes mellitus without complication, with long-term current use of insulin ([facility]) documented in this encounter Additional Health Concerns Assessment Noted Time PHQ-9 Depression Total Score: 9 02/25/20 23 11:02 AM EST documented as of this encounter Care Teams Balancer Relationship Specialty Start Date End Date Pascual Daly MD [address] [place] [address] PCP - General Internal Medicine 02/22/14 Fani Heck, PharmD [address] [place] [address] Pharmacist Internal Medicine 12/16/22 documented as of this encounter
--- OUTSIDE RECORDS SUMMARY | 2024-08-16 10:24 | XMS_ITS | Encounter Summary ---
Author Organization [employer] Address [address] [facility] 7t [place] [address] Care Team Providers Care Cardiopulmonary Physical Therapist Name Role Phone Pascual Daly MD Primary Care Provide r Fani Heck PharmD Unavailable [phone] Reason for Visit * Reason Comments Med Refill Encounter Details Date Type Department Care Team (Late st Contact Info) Description 01/01/2024 Refill [facility] [address] [place] [address] Momo Rizo MD [address] [place] [address] Social History Tobacco Use Types Packs/Day Years [...] Description 08/16/2024 11:00 AM EDT Medication Management [facility] [address] [place] [address] Dasia Waters, PharmD [address] [place] [address] 09/16/2024 9:30 AM EDT Office Visit [facility] [address] [place] [address] Christian Winchester DDS [address] [place] [address] 10/28/2024 10:30 AM EDT Clinical Support [facility] [address] [place] [address] Amanda Fernández, RN [address] [place] [address] 11/16/2024 11:15 AM EDT Office Visit [facility] [address] [place] [address] Pascual Daly MD [address] [place] [address] 02/17/2025 10:00 AM EDT Office Visit [facility] [address] [place] [address] Gabriela Gaitan [address] [place] [address] documented as of this encounter Goals Goal [...] documented as of this encounter Care Teams Cardiopulmonary Physical Therapist Relationship Specialty Start Date End Date Pascual Daly MD [address] [place] [address] PCP - General Internal Medicine 02/22/14 Fani Heck, PharmD [address] [place] [address] Pharmacist Internal Medicine 12/16/22 documented as of this encounter
--- OUTSIDE RECORDS SUMMARY | 2024-08-16 10:24 | XMS_ITS | Encounter Summary ---
Author Organization [employer] Address [address] [facility] 7t [place] [address] Care Team Providers Care Professor Of Environmental Engineering Name Role Phone Pascual Daly MD Primary Care Provide r Fani Heck PharmD Unavailable [phone] Reason for Visit * Reason Onset Date Comments Med Refill 12/15/2023 Encounter Details Date Type Department Care Team ([facility] st Contact Info) Description 12/15/2023 Telephone [facility] [address] [place] [address] Pascual Daly MD [address] [place], [place] [phone] Med Refill Social History Tobacco Use Types [...] immediate release tablet To be sent to: [facility] - [place], [place] - [address] [place] [address] documented in this encounter Plan of Treatment Upcoming Encounters Date Type Department Care Team ([facility] st Contact Info) Description 08/16/2024 11:00 AM EDT Medication Management [facility] [address] [place] [address] Dasia Waters, PharmD [address] [place] [address] 09/16/2024 9:30 AM EDT Office Visit [facility] [address] [place] [address] Chrisitan Winchester DDS [address] [place] [address] 10/28/2024 10:30 AM EDT Clinical Support [facility] [address] [place] [address] Amanda Fernández, RN [address] [place] [address] 11/16/2024 11:15 AM EDT Office Visit [facility] [address] [place] [address] Pascual Daly MD [address] [place] [address] 02/17/2025 10:00 AM EDT Office Visit [facility] [address] [place] [address] KandyGabriela [address] [place] [address] documented as of this encounter Goals Goal [...] documented as of this encounter Care Teams Professor Of Environmental Engineering Relationship Specialty Start Date End Date Pascual Daly MD [address] [place] [address] PCP - General Internal Medicine 02/22/14 Fani Heck, PharmD [address] [place] [address] Pharmacist Internal Medicine 12/16/22 documented as of this encounter
--- OUTSIDE RECORDS SUMMARY | 2024-08-16 10:24 | XMS_ITS | Encounter Summary ---
Author Organization [employer] Address [address] [facility] 7t [place] [address] Care Team Providers Care Resident Advisor Name Role Phone Pascual Daly MD Primary Care Provide r Fani Heck PharmD Unavailable [phone] Reason for Visit * Reason Comments Med Refill Encounter Details Date Type Department Care Team (Late Contact Info) Description 08/08/2022 Refill [facility] [address] [place] [address] Momo Rizo MD [address] [place] [address] Mild intermittent asthma without complication Social History [...] Department Care Team (Late Contact Info) Description 08/16/2024 11:00 AM EDT Medication Management [facility] [address] [place] [address] Dasia Waters, PharmD [address] [place] [address] 09/16/2024 9:30 AM EDT Office Visit [facility] [address] [place] [address] Christian Winchester DDS [address] [place] [address] 10/28/2024 10:30 AM EDT Clinical Support [facility] [address] [place] [address] Amanda Fernández, RN [address] [place] [address] 11/16/2024 11:15 AM EDT Office Visit [facility] [address] [place] [address] Pascual Daly MD [address] [place] [address] 02/17/2025 10:00 AM EDT Office Visit [facility] [address] [place] [address] Gabriela Gaitan [address] [place] [address] documented as of this encounter Goals Goal Patient Goal Type Associated Problems Recent Progress Patient-Stated? Author Blood Pressure < 140/90 Blood Pressure 150/69( 025 10:00 AM EDT) No Fani Heck PharmD documented as of this encounter Visit Diagnoses Diagnosis Mild intermittent asthma without complication documented in this encounter Additional Health Concerns Assessment Noted Time PHQ-9 Depression Total Score: 8 07/05/19 23 9:26 AM EDT documented as of this encounter Care Teams Resident Advisor Relationship Specialty Start Date End Date Pascual Daly MD [address] [place] [address] PCP - General Internal Medicine 02/22/14 Fani Heck PharmD [address] [place] [address], [place] [address] Pharmacist Internal Medicine 12/16/22 documented as of this encounter
--- OUTSIDE RECORDS SUMMARY | 2024-08-16 10:24 | XMS_ITS | Clinical Summary ---
Author Organization [employer] Address [address] [facility] 7t [place] [address] Care Team Providers Care Pressure Test Operator Name Role Phone Pascual Daly MD Primary Care Provide r Fani Heck PharmD Unavailable [phone] Allergies Active Allergy Reactions Criticality Noted Date [...] Active Continuous Glucose Sensor (Dexcom G7 Sensor) [facility] DIRECTED Active Actemra ACTPen 162 MG/0.9ML solution [...] Active Problems Problem Noted Date Diagnosed Date Coronary artery disease invo lving [place] coronary artery of [place] heart without angina pectoris 08/12/2024 Assessment & Plan (08/12/2024 10:19 AM EDT): Under the care of Cardiology Dr Uirbe Who saw her last on: 07/26/2024 He mentioned: Her cardiac cath showed 30% disease in the ostial left anterior descending artery. There was no clear culprit for the NSTEMI. Mainly risk factor modification. She remains on statins and cholesterol is well controlled. LDL is 42 mg/dL. Due to bariatric surgery history, she is on Plavix and not aspirin. Dental plaque 08/05/2024 Localized gingival recession 08/05/2024 Xerostomia 08/05/2024 Long-term current use of opiate analgesic 2024 Hospital discharge follow-up 10/21/2023 Assessment & Plan (10/21/2023 10:15 AM EDT): Patient admitted to [facility] 09/09/23 after she presented to [place] emergency room due to left-sided chest discomfort as per patient she was visiting family in [place], on August 26 she turned in high [...] (08/27/2022 10:19 AM EDT): followed by a senior maintenance technician. 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 Repeat BMP F/U 3 months Assessment & Plan (05/04/2024 10:19 AM EST): [...] with cardiology in August. - Follow-up in [facility] in November. 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 Assessment & Plan (05/04/2024 10:23 AM EST): [...] f/u She is under the care of Barrel Drainer Dr Sprague, last seen 12/31/2023 On a [...] f/u She is under the care of Barrel Drainer Dr Sprague, last seen 10/16/2023 On a [...] f/u She is under the care of Barrel Drainer Dr Sprague, has a follow up with [...] f/u She is under the care of Barrel Drainer Dr Sprague, has a follow up at [...] was referred to Dr. Manjinder Gonsales at [facility] as her medical insurance recommended this referral. Pt no longer seeing her Pt tells me she was taking gabapentin and that was effective but no longer on it will repeat BUn and Cr and dose accordingly Hyperlipidemia 04/21/1959 Assessment & Plan (08/12/2024 10:20 AM EDT): Pt with elevated lipids Most [...] normal Plan: Repeat Lipid profile, and LFTs Assessment & Plan (05/04/2024 10:20 AM EST): [...] LDL-C. Melquiades WALLACE et al. TEN. 2013;310(19): 6416-6785 (http://education.Optimalize.me.PollitoIngles/faq/USM427) Chol/HDLC Ratio <5.0 (calc) 4.2 3.7 2.5 [...] Encounters Date Type Department Care Team Description 08/12/2024 10:15 AM EDT Office Visit [facility] [address] [place] [address] Pascual Daly MD Type 2 diabetes mellitus with right eye affected by mild nonproliferative retinopathy without macular edema, with long-term current use of insulin (CMS/HCC) (Primary Dx); Type 2 diabetes mellitus without complication, with long-term current use of insulin (CMS/HCC); Mixed hyperlipidemia; Primary hypertension; Gastroesophageal reflux disease without esophagitis; Coronary artery disease involving [place] coronary artery of [place] heart without angina pectoris 08/12/2024 Travel 08/06/2024 Telephone [facility] [address] [place] [address] Pascual Daly MD Chart Prep 08/05/2024 10:00 AM EDT Office Visit [facility] [address] [place] [address] KandyGabriela ambrosio Dental plaque (Primary Dx); Localized gingival recession; Xerostomia; Odontoma 08/05/2024 Refill [facility] [address] [place] [address] Pascual Daly MD Fibromyalgia 08/02/2024 Orders Only [facility] [address] [place] [address] Pascual Daly MD 07/29/2024 Orders Only GENERIC EXTERNAL DATA DEPARTMENT Provider, Generic External Data 07/22/2024 10:30 AM EDT Clinical Support [facility] [address] [place] [address] Amanda Fernández RN Fibromyalgia (Primary Dx); Long-term current use of opiate analgesic 07/22/2024 Telephone [facility] [address] [place] [address] Amanda Fernández RN 07/22/2024 Travel 07/21/2024 Orders Only [facility] [address] [place] [address] Pascual Daly MD Type 2 diabetes mellitus without complication, with long-term current use of insulin ([facility]) (Primary Dx) 07/21/2024 Telephone [facility] [address] [place] [address] Pascual Daly MD 07/14/2024 Telephone [facility] [address] [place] [address] Pascual Daly MD Chart Prep 07/07/2024 Refill [facility] [address] [place] [address] Pascual Daly MD Fibromyalgia 07/07/2024 Orders Only GENERIC EXTERNAL DATA DEPARTMENT Provider, Generic External Data 06/22/2024 Refill [facility] [address] [place] [address] Pascual Daly MD Pain 06/15/2024 Orders Only GENERIC EXTERNAL DATA DEPARTMENT Provider, Generic External Data 06/10/2024 Refill [facility] [address] [facility] [place] [address] Pascual Daly MD Fibromyalgia 06/04/2024 Orders Only GENERIC EXTERNAL DATA DEPARTMENT Provider, Generic External Data 05/31/2024 Refill [facility] [address] [address] Nikia Jeter MD Type 2 diabetes mellitus without complication, with long-term current use of insulin ([facility]); Benign hypertension 05/24/2024 Refill [facility] [address] [place] [address] Pascual Daly MD Benign hypertension 05/18/2024 Orders [...] Mass Index 32.48 08/12/2024 10:00 AM EDT Plan of Treatment Upcoming Encounters Date Type Department Care Team (Late st Contact Info) Description 08/16/2024 11:00 AM EDT Medication Management [facility] [address] [place] [address] Dasia Waters, KristiD [address] [place] [address] 09/16/2024 9:30 AM EDT Office Visit [facility] [address] [place] [address] Christian Winchester DDS [address] [place] [address] 10/28/2024 10:30 AM EDT Clinical Support [facility] [address] [place] [address] Amanda Fernández, RN [address] [place] [address] 11/16/2024 11:15 AM EDT Office Visit [facility] [address] [place] [address] Pascual Daly MD [address] [place] [address] 02/17/2025 10:00 AM EDT Office Visit [facility] [address] [place] [address] [place] [address] Health Maintenance Due Date Last Done Comments CT Colonography 1950 Dental X-Ray: Bitewings 1950 FIT DNA/Cologuard 1950 FIT 1950 FOBT 1950 Sigmoidoscopy 1950 Diabetes: Foot Exam 02/08/1960 Eye Exam 02/08/1960 DTaP/Tdap/Td Vaccines (2 - Td or Tdap) 09/25/2023 09/24/2013, 02/22/2003, 08/21/1992 COVID-19 Vaccine ( season) 2023 04/18/2022, 09/04/2021, 03/05/2021, Additional history exists Diabetes: Urine Protein Screening 07/01/2024 07/02/2023, 01/10/2023, 07/17/2021, Additional history exists Lipid Panel 10/30/2024 10/31/2023, 06/19, 09/17/2022, Additional history exists Diabetes: Hemoglobin A1C 11/11/2024 025, 05/04/2024, 02/17/2024, Additional history exists Depression Screening 01/28/2025 01/29/2024, 01/29/20 Dental Oral Exam 02/05/2025 08/05/2024 Dental Prophylaxis 02/05/2025 08/05/2024 Alcohol/Substance Use Screening 05/04/2025 05/04/2024 Mammogram 08/02/2025 08/02/2024, 05/22, 05/23/2022, Additional history exists SDOH Screening 08/12/2025 08/12/2024 Tobacco Screening 08/12/2025 08/12/2024 Dental X-Ray: Full Mouth 08/07/2027 08/05/2024 Colonoscopy [...] 10:00 AM EDT) No Fani Heck, Woody Procedures Procedure Name Priority Date/Time Associated Diagnosis Comments POCT GLYCATED HEMOGLOBIN, TOTAL Routine 08/12/2024 10:16 AM EDT Type 2 diabetes mellitus without complication, with long-term current use of insulin ([facility]) POCT GLUCOSE Routine 08/12/2024 10:11 AM EDT Type 2 diabetes mellitus without complication, with long-term current use of insulin ([facility]) PERIODIC ORAL EVALUATION - ESTABLISHED PATIENT Routine [...] WHOLE BLOOD Routine 05/18/2024 10:17 AM EST LIPID PANEL, STANDARD Routine 10/31/2023 10:42 AM EDT ALBUMIN, RANDOM URINE W/CREATININE Routine 07/02/2023 10:06 AM EDT HEPATITIS C VIRAL RNA GENOTYPE, LIPA Routine 01/15/2023 11:08 AM EDT HM COLONOSCOPY Routine 03/20/2018 from Last 3 Months or Most Recently Relevant to Health Maintenance Results * (ABNORMAL) POCT HGB A1C (08/12/2024 10:16 AM EDT) Hemoglobin A1C 7.8(A) 4.0 - 6.0 % QC Media Lot # [id number] Lot# Expiration Date ,027 Blood 08/12/2024 10:1 6 AM EDT us Pascual Terry MD POINT OF CARE TEST EN TER/EDIT ORDERABLES Final Result * (ABNORMAL) POCT Glucose (08/12/2024 10:11 AM EDT) Glucose Blood, POC 203(A) 60 - 200 mg/dL QC Media Lot # [id number] Lot# Expiration Date Blood Capillary blood specimen / Unknown 08/12/2024 10:11 AM EDT us Pascual Terry MD POINT OF CARE TEST EN TER/EDIT ORDERABLES Final Result * BI Mammogram Screening Tomosynthesis Bilateral (08/02/2024 11:03 AM EDT) Anatomical Region Laterality Modality Breast Bilateral Mammography 08/02/2024 11:0 3 AM EDT Narrative 08/10/2024 3:27 PM EDT ? [facility] ? [address] ?[place] [address] ?[phone] ? Mammography Report ? Signed ? Patient: Max,Brandie ?MR#: [id number] ? : 1950 ?Acct:[id number] ? Age/Sex: 74 / F ?ADM Date: 04/14/25 ? Loc: HO.MAMMO ? Attending Dr: Pascual Darnell MD ? Ordering Physician: Pascual Darnell MD ?Resu ?? lts: 2Benign Findings ? Date of Service: 08/02/24 ?Follow Up: 1 Year From Orig ?? inal Mammogram ? Procedure(s): MM tomosynthesis screening BI ?? Accession Number(s): [id number] ? cc: Pascual Darnell MD ? EXAMINATION: [...] DD/ 1103 ? TD/TT: 08/02/24 1116 ? Senior Software Engineer: ? Procedure Note Silvestre, Image - [facility] [address] [place] [address] Mammography Report Signed Patient: Dino Santana#: [id number] : 1950Acct:[id number] Age/Sex: 74 / FADM Date: 08/02/24 Loc: HO.MAMMO Attending Dr: Pascual Darnell MD Ordering Physician: Pascual Darnell MDResu lts: 2Benign Findings Date of Service: 08/02/24Follow Up: 1 Year From Orig inal Mammogram Procedure(s): MM tomosynthesis screening BI Accession Number(s): [id number] cc: Pascual Darnell MD EXAMINATION: MM SCREENING [...] their next mammogram. Electronically signed by: Homa rOtiz DO 08/10/2024 03:23 PM EDT Dictated By: Homa Ortiz DO Signed By: <Electronically signed by Homa Ortiz DO in OV> 08/10/24 1523 DD/ 1103 TD/TT: 08/02/24 1116 Senior Software Engineer: Pascual Terry MD IMG BI PROCEDURES Fin al Result * (ABNORMAL) Glucose, Whole Blood (07/29/2024 8:53 AM EDT) Only the most recent of5 resultswithin the time period is included. Glucose, Whole Blood 265(H) 60 - 115 mg/dL [facility] Comment:METER #: [id number] 5Testing performed in the Endocrinology Department [address] , [address], [facility]. 07/29/2024 8:53 AM EDT 07/29/2024 9:01 AM EDT Generic External Data Provider LAB BLOOD ORDERAB LES Final Result [facility] [address] [place] [address] [phone] * POCT HEATHER-14 Urine Drug Screen (07/22/2024 10:33 AM EDT) Oxycodone Screen, Urine Positive Urine Urine specimen obtained by clean catch procedure / Unknown 07/22/2024 10:33 AM EDT Narrative Amanda Fernández RN - 07/22/2024 10:33 AM EDT Lot# [id number] Exp: 12-08-25 us Pascual Terry MD POINT OF CARE TEST EN TER/EDIT ORDERABLES Final Result * Alkaline Phosphatase, Bone Specific (06/15/2024 11:09 AM EST) Alkaline Phosphatase, Bone Specific 13.2 5.6 - 29.0 mcg/L [facility] Comment:Reference Range, Pre menopausal (mcg/L) 35-45 years 5.0-18.2THIS TEST WAS PERFORMED AT:[facility]/[id number] [place] [address]ISPJDCRJOHN CORDON MD,PHD 06/15/2024 11:0 9 AM EST 06/15/2024 11:13 AM EST Generic External Data Provider LAB BLOOD ORDERAB LES Final Result Performing Organization Address City/[facility]/ZIP Co de Phone Number [facility] [address] [place] [phone] * (ABNORMAL) PTH, Intact Without Calcium (06/15/2024 11:09 AM EST) Parathyroid Hormone, Intact 101.8(H) 8.7 - 77.1 pg/mL [facility] 06/15/2024 11:0 9 AM EST 06/15/2024 11:13 AM EST us Generic External Data Provider LAB BLOOD ORDERAB LES Final Result Performing Organization Address [facility]/ZIP Co de Phone Number [facility] [address] [place] [phone] * Calcium, Ionized (06/15/2024 11:09 AM EST) Calcium, Ionized 5.3 4.7 - 5.5 mg/dL [facility] Comment:THIS TEST WAS PERFOR MED AT:[facility] [address] [address]QLXSRGEORGE HURLEY MD 06/15/2024 11:0 9 AM EST 06/15/2024 11:13 AM EST Generic External Data Provider LAB BLOOD ORDERAB LES Final Result Performing Organization Address City/[facility]/ZIP Co de Phone Number [facility] [address] [place] [address] [phone] * (ABNORMAL) Lipid Panel, Standard (10/31/2023 10:42 AM EDT) Triglycerides 74 <150 mg/dL [facility] Comment:Desirable Triglyceri de: less than 150 mg/dLBorderline High Triglyceride 150-199 mg/dLHigh Triglyceride: 200-499 mg/dLVery High Triglyceride: greater than or equal to 5OO mg/dL Cholesterol 95 <200 mg/dL [facility] Comment:Desirable Cholestero l: less than 200 mg/dLBorderline High Cholesterol: 200-239 mg/dLHigh Cholesterol: greater than 239 mg/dL LDL Cholesterol Calculated 43 <100 mg/dL [facility] Comment:Desirable LDL: less than 100 mg/dLNear Optimal/Above Optimal LDL: 110- 129 mg/dLBorderline High LDL: 130-159 mg/dLHigh LDL: 160-189 mg/dLVery High LDL: greater than or equal to 190 mg/dL HDL Cholesterol 38(L) >40 mg/dL [facility] Comment:Desirable HDL: great er than 40 mg/dL Note: This HDL assay may give artificially low results in patients with liver disease. 10/31/2023 10:4 2 AM EDT 10/31/2023 10:42 AM EDT us Generic External Data Provider LAB BLOOD ORDERAB LES Final Result Performing Organization Address City/[facility]/ZIP Co de Phone Number [facility] [address] [place] [address] [phone] * (ABNORMAL) Albumin, Random Urine W/Creatinine (07/02/2023 10:06 AM EDT) Creatinine, Urine 163.81 mg/dL [facility] Microalbumin Urine 59.0 mg/L [facility] Microalbum Creatinine Ratio Ur 36.0(H) <30 ug/mg cr [facility] Comment:Albumin/Creatinine R atio Reference Ranges: Normal: < 30 ug/mg creatinine Microalbuminuria: 30 - 300 ug/mg creatinineClinical Albuminuria: > 300 ug/mg creatinine 07/02/2023 10:0 6 AM EDT 07/02/2023 11:41 AM EDT us Generic External Data Provider LAB URINE ORDERAB LES Final Result [facility] [address] [place] [phone] * Hepatitis C Viral RNA, Genotype, LiPA (01/15/2023 11:08 AM EDT) Pathologist [facility] Hepatitis C Genotype Not Detected [facility] Comment: Genotype not detected due [...] characteristics of thisassay have been determined by [facility] [place]. ??The modificationshave not been cleared or approved by the FDA. ??Thisassay has been validated pursuant to the CLIAregulations and is used for clinical purposes.For additional information, please refer tohttp://education.Easiaid/faq/HCVGenotyping(This link is being provided for informational/educational purposes only.)THIS TEST WAS PERFORMED AT:[facility] [place] [address]UTPVECKJOHN CORDON MD,PHD 01/15/2023 11:0 8 AM EDT 01/15/2023 11:08 AM EDT [facility] External Provider LAB BLO OD ORDERABLES Final Result [facility] [address] [place] [address] [phone] * Colonoscopy (03/20/2018) Colonoscopy Normal Normal 03/20/2018 Narrative Sondra Rowe - 03/20/2018 9:09 AM EST Recommended 10 year follow up Historical Provider HEALTH MAINTENANCE Edited Result - Final from Last 3 Months or Most Recently Relevant to Health Maintenance Insurance [facility] USP OPTIONS (O D-SNP) [place] [id number] DENTAL [facility] Care Teams Pressure Test Operator Relationship Specialty Start Date End Date Pascula Daly MD [address] [place] [address] PCP - General Internal Medicine 02/22/14 Fani Heck PharmD [address] [place] [address] Pharmacist Internal Medicine 12/16/22
--- OUTSIDE RECORDS SUMMARY | 2024-08-16 10:24 | XMS_ITS | Encounter Summary ---
Author Organization [employer] Address [address] [facility] 7t [place] [address] Care Team Providers Care Business Operations Specialist Name Role Phone Pascual Daly MD Primary Care Provide r Fani Heck PharmD Unavailable [phone] Reason for Visit * Reason Onset Date Comments FYI 12/31/2023 Encounter Details Date Type Department Care Team ([facility] st Contact Info) Description 12/31/[address] [facility] [address] [place] [address] Pascual Daly MD [address] [place], [place] [phone] Social History Tobacco Use Types Packs/Day Years [...] any questions you can contact Franky at [phone]. documented in this encounter Plan of Treatment Upcoming Encounters Date Type Department Care Team (Late st Contact Info) Description 08/16/2024 11:00 AM EDT Medication Management [facility] [address] [place] [address] Dasia Waters, KristiD [address] [place] [address] 09/16/2024 9:30 AM EDT Office Visit [facility] [address] [place] [address] Christian Winchester DDS [address] [place] [address] 10/28/2024 10:30 AM EDT Clinical Support [facility] [address] [place], [place] [phone] Amanda Fernández, RN [address] [place], [place] 11/16/2024 11:15 AM EDT Office Visit [facility] [address] [place], [place] [phone] Pascual Daly MD [address] [place], [place] 02/17/2025 10:00 AM EDT Office Visit [facility] [address] [place], [place] [phone] Gabriela Gaitan [address] [place], [place] documented as of this encounter Goals [...] as of this encounter Care Teams Business Operations Specialist Relationship Specialty Start Date End Date Pascual Daly MD [address] [place], [place] PCP - General Internal Medicine 02/22/14 Fani Heck, PharmD [address] [place] [address] Pharmacist Internal Medicine 12/16/22 documented as of this encounter
--- OUTSIDE RECORDS SUMMARY | 2024-08-16 10:24 | XMS_ITS | Encounter Summary ---
Author Organization [employer] Address [address] [facility] 7t [place] [address] Care Team Providers Care Architectural Project Captain Name Role Phone Pascual Daly MD Primary Care Provide r Fani Heck PharmD Unavailable [phone] Reason for Visit * Reason Comments Med Refill Encounter Details Date Type Department Care Team (Late st Contact Info) Description 01/14/2024 Refill [facility] [address] [place] [address] Pascual Daly MD [address] [place] [address] Fibromyalgia Social History Tobacco Use Types Packs/Day [...] Description 08/16/2024 11:00 AM EDT Medication Management [facility] [address] [place] [address] Dasia Waters, PharmD [address] [place] [address] 09/16/2024 9:30 AM EDT Office Visit [facility] ADULT DENT[facility] [address] [place] [address] Christian Winchester DDS [address] [place] [address] 10/28/2024 10:30 AM EDT Clinical Support [facility] [address] [place] [address] Amanda Fernández, RN [address] [place] [address] 11/16/2024 11:15 AM EDT Office Visit [facility] [address] [place] [address] Pascual Daly MD [address] [place] [address] 02/17/2025 10:00 AM EDT Office Visit [facility] [address] [place] [address] Gabriela Gaitan [address] [place] [address] documented as of this encounter Goals Goal [...] documented as of this encounter Care Teams Architectural Project Captain Relationship Specialty Start Date End Date Pascual Daly MD [address] [place] [address] PCP - General Internal Medicine 02/22/14 Fani Heck, PharmD [address] [place] [address] Pharmacist Internal Medicine 12/16/22 documented as of this encounter
--- OUTSIDE RECORDS SUMMARY | 2024-08-16 10:24 | XMS_ITS | Encounter Summary ---
Author Organization [employer] Address 75 [facility] 7t [place] [address] Care Team Providers Care Skiver Blockers Name Role Phone Pascual Daly MD Primary Care Provide r Fani Heck PharmD Unavailable [phone] Reason for Visit * Reason Comments Med Refill Encounter Details Date Type Department Care Team (Late st Contact Info) Description 10/21/2023 Refill [facility] [address] [place] [address] Titi Gray FNP Major depressive disorder with [...] Description 08/16/2024 11:00 AM EDT Medication Management [facility] [address] [place] [phone] Dasia Waters, PharmD [address] [place] [phone] 09/16/2024 9:30 AM EDT Office Visit [facility] ADULT DENT[facility] [address] [place] [address] Christian Winchester DDS [address] [place] [address] 10/28/2024 10:30 AM EDT Clinical Support [facility] [address] [place] [address] Amanda Fernández, RN [address] [place] [address] 11/16/2024 11:15 AM EDT Office Visit [facility] [address] [place] [address] Pascual Daly MD [address] [place] [address] 02/17/2025 10:00 AM EDT Office Visit [facility] [address] [place] [address] Gabriela Gaitan [address] [place] [address] documented as of this encounter Goals Goal [...] documented as of this encounter Care Teams Skiver Blockers Relationship Specialty Start Date End Date Pascual Daly MD [address] [place] [address] PCP - General Internal Medicine 02/22/14 Fani Heck, PharmD [address] [place] [address] Pharmacist Internal Medicine 12/16/22 documented as of this encounter
--- OUTSIDE RECORDS SUMMARY | 2024-08-16 10:24 | XMS_ITS | Encounter Summary ---
Author Organization [employer] Address 75 [facility] 7t [place] [address] Care Team Providers Care Machinist Class B Name Role Phone Pascual Daly MD Primary Care Provide r Fani Heck PharmD Unavailable [phone] Encounter Details Date Type Department Care Team ([facility] Contact Info) Description 07/01/2022 Abstract [facility] WALK-IN CENTER [address] [place] [address] Pascual Daly MD 230 [place], [place] [phone] Social History Tobacco Use Types Packs/Day Years [...] Description 08/16/2024 11:00 AM EDT Medication Management [facility] MEDICINE 230 [place] [address] Dasia Waters, KristiD 230 [place] [address] 09/16/2024 9:30 AM EDT Office Visit [facility] ADULT DENTAL 230 [place] [address] Christian Winchester DDS 230 [place] [address] 10/28/2024 10:30 AM EDT Clinical Support [facility] CHC MED & PEDS 505 [place] [address] Amanda Fernández, RN 505 [place] [address] 11/16/2024 11:15 AM EDT Office Visit [facility] MEDICINE 230 [place] [address] Pascual Daly MD 230 [place] [address] 02/17/2025 10:00 AM EDT Office Visit [facility] ADULT DENTAL [address] [place] [address] Gabriela Gaitan 230 [place] [address] documented as of this encounter Goals Goal [...] documented as of this encounter Care Teams Machinist Class B Relationship Specialty Start Date End Date Pascual Daly MD [address] [place] [address] PCP - General Internal Medicine 02/22/14 Fani Heck, KristiD [address] [place] [address] Pharmacist Internal Medicine 12/16/22 documented as of this encounter
--- OUTSIDE RECORDS SUMMARY | 2024-08-16 10:24 | XMS_ITS | Encounter Summary ---
Author Organization [employer] Address 75 [facility] 7t [place] [address] Care Team Providers Care Residue Furnace Operator Name Role Phone Pascual Daly MD Primary Care Provide r Fani Heck PharmD Unavailable [phone] Reason for Visit * Reason Onset Date Comments Med Refill 10/11/2022 Encounter Details Date Type Department Care Team ([facility] st Contact Info) Description 10/11/2022 Telephone [facility] MEDICINE 230 [place] [address] Pascual Daly MD 230 [place], [place] [phone] Med Refill Social History Tobacco Use Types [...] Description 08/16/2024 11:00 AM EDT Medication Management [facility] MEDICINE 230 [place] [address] Dasia Waters, Woody 230 [place] [address] 09/16/2024 9:30 AM EDT Office Visit [facility] ADULT DENTAL 230 [place] [address] Christian Winchester DDS 230 [place] [address] 10/28/2024 10:30 AM EDT Clinical Support [facility] CHC MED & PEDS 505 [place] [address] Amanda Fernández, RN 505 [place] [address] 11/16/2024 11:15 AM EDT Office Visit [facility] MEDICINE 230 [place] [address] Pascual Daly MD 230 [place] [address] 02/17/2025 10:00 AM EDT Office Visit [facility] ADULT DENTAL 230 [place] [address] Gabriela Gaitan 230 [place] [address] documented as of this encounter Goals Goal [...] documented as of this encounter Care Teams Residue Furnace Operator Relationship Specialty Start Date End Date Pascual Daly MD 230 [place] [address] PCP - General Internal Medicine 02/22/14 Fani Heck PharmD 230 [place] [address] Pharmacist Internal Medicine 12/16/22 documented as of this encounter
--- OUTSIDE RECORDS SUMMARY | 2024-08-16 10:24 | XMS_ITS | Encounter Summary ---
Author Organization [employer] Address [address] [facility] [address] 7t [place] [address] Care Team Providers Care Security Systems Integrator Name Role Phone Pascual Daly MD Primary Care Provide r Fani Heck PharmD Unavailable [phone] Encounter Details Date Type Department Care Team (Late st Contact Info) Description 03/05/2024 Refill [facility] MEDICINE 230 [place] [address] Jefry Chun Benign hypertension; Type 2 diabetes mellitus without complication, with long-term current use of insulin ([facility]) Social History Tobacco Use Types [...] Description 08/16/2024 11:00 AM EDT Medication Management [facility] MEDICINE [address] [place] [address] Dasia Waters, PharmD [address] [place] [address] 09/16/2024 9:30 AM EDT Office Visit [facility] ADULT DENTAL [address] [place] [address] Christian Winchester DDS [address] [place] [address] 10/28/2024 10:30 AM EDT Clinical Support [facility] CHC MED & PEDS 505 [place] [address] Amanda Fernández, RN 505 [place] [address] 11/16/2024 11:15 AM EDT Office Visit [facility] MEDICINE [address] [place] [address] Pascual Daly MD [address] [place] [address] 02/17/2025 10:00 AM EDT Office Visit [facility] ADULT DENTAL [address] [place] [address] Gabriela Gaitan 230 [place] [address] documented as of this encounter Goals Goal Patient Goal Type Associated Problems Recent Progress Patient-Stated? Author Blood Pressure < 140/90 Blood Pressure 150/69( 025 10:00 AM EDT) No Fani Heck, Woody documented as of this encounter Visit Diagnoses Diagnosis Benign hypertension Essential hypertension, benign Type 2 diabetes mellitus without complication, with long-term current use of insulin ([facility]) documented in this encounter Additional Health Concerns Assessment Noted Time PHQ-9 Depression Total Score: 9 01/29/20 24 11:00 AM EDT documented as of this encounter Care Teams Security Systems Integrator Relationship Specialty Start Date End Date Pascual Daly MD [address] [place] [address] PCP - General Internal Medicine 02/22/14 Fani Heck, Woody [address] [place] [address] Pharmacist Internal Medicine 12/16/22 documented as of this encounter
--- OUTSIDE RECORDS SUMMARY | 2024-08-16 10:24 | XMS_ITS | Encounter Summary ---
Author Organization [employer] Address 75 [facility] 7t [place] [address] Care Team Providers Care Senior Fire Protection Engineer Name Role Phone Pascual Daly MD Primary Care Provide r Fani Heck PharmD Unavailable [phone] Encounter Details Date Type Department Care Team (Latest Contact Info) Description 05/26/2019 Abstract [facility] CONVERSIONS Dental, Provider, DDS Social History [...] Description 08/16/2024 11:00 AM EDT Medication Management [facility] MEDICINE 230 [place] [address] Dasia Waters, PharmD 230 [place] [address] 09/16/2024 9:30 AM EDT Office Visit [facility] ADULT DENTAL [address] [place] [address] Christian Winchester, DDS 230 [place] [address] 10/28/2024 10:30 AM EDT Clinical Support [facility] CHC MED & PEDS 505 [place] [address] Amanda Fernández, RN 505 [place], [place] 11/16/2024 11:15 AM EDT Office Visit [facility] MEDICINE [address] [place] [address] Pascual Daly MD [address] [place] [address] 02/17/2025 10:00 AM EDT Office Visit [facility] ADULT DENTAL 230 [place] [address] Gabriela Gaitan 230 [place] [address] documented as of this encounter Visit Diagnoses Not on filedocumented in this encounter Care Teams Senior Fire Protection Engineer Relationship Specialty Start Date End Date Pascual Daly MD [address] [place] [address] PCP - General Internal Medicine 02/22/14 Fani Heck, PharmD [address] [place] [address] Pharmacist Internal Medicine 12/16/22 documented as of this encounter
--- OUTSIDE RECORDS SUMMARY | 2024-08-16 10:24 | XMS_ITS | Encounter Summary ---
Author Organization [employer] Address 75 [facility] 7t [place] [address] Care Team Providers Care Safety Representative Name Role Phone Pascual Daly MD Primary Care Provide r Fani Heck PharmD Unavailable [phone] Encounter Details Date Type Department Care Team ([facility] Contact Info) Description 08/29/2022 Abstract [facility] MEDICINE 230 [place] [address] Pascual Daly MD 230 [place] [address] Social History Tobacco Use Types Packs/Day Years [...] Description 08/16/2024 11:00 AM EDT Medication Management [facility] MEDICINE [address] [place] [address] Dasia Waters, KristiD 230 [place] [address] 09/16/2024 9:30 AM EDT Office Visit [facility] ADULT DENTAL 230 [place] [address] Christian Winchester DDS [address] [place] [address] 10/28/2024 10:30 AM EDT Clinical Support [facility] CHC MED & PEDS 505 [place] [address] Amanda Fernández, RN 505 [place] [address] 11/16/2024 11:15 AM EDT Office Visit [facility] MEDICINE [address] [place] [address] Pascual Daly MD 230 [place] [address] 02/17/2025 10:00 AM EDT Office Visit [facility] ADULT DENTAL [address] [place] [address] Gabriela Gaitan 230 [place] [address] documented as of this encounter Goals Goal [...] documented as of this encounter Care Teams Safety Representative Relationship Specialty Start Date End Date Pascual Daly MD 230 [place] [address] PCP - General Internal Medicine 02/22/14 Fani Heck, KristiD 230 [place] [address] Pharmacist Internal Medicine 12/16/22 documented as of this encounter
--- OUTSIDE RECORDS SUMMARY | 2024-08-16 10:24 | XMS_ITS | Encounter Summary ---
Author Organization [employer] Address 75 [facility] 7t [place] [address] Care Team Providers Care Vibration Engineer Name Role Phone Pascual Daly MD Primary Care Provide r Fani Heck PharmD Unavailable [phone] Reason for Visit * Reason Comments Med Refill Encounter Details Date Type Department Care Team (Late st Contact Info) Description 10/21/2023 Refill [facility] MEDICINE 230 [place] [address] Titi Gray FNP Major depressive disorder with [...] Description 08/16/2024 11:00 AM EDT Medication Management [facility] MEDICINE [address] [place] [address] Dasia Waters, PharmD [address] [place] [address] 09/16/2024 9:30 AM EDT Office Visit [facility] ADULT DENTAL [address] [place] [address] Christian Winchester DDS [address] [place] [address] 10/28/2024 10:30 AM EDT Clinical Support [facility] CHC MED & PEDS 505 [place] [address] Amanda Fernández, RN 505 [place] [address] 11/16/2024 11:15 AM EDT Office Visit [facility] MEDICINE [address] [place] [address] Pascual Daly MD [address] [place] [address] 02/17/2025 10:00 AM EDT Office Visit [facility] ADULT DENTAL [address] [place] [address] Gabriela Gaitan 230 [place] [address] documented as of this encounter Goals Goal [...] documented as of this encounter Care Teams Vibration Engineer Relationship Specialty Start Date End Date Pascual Daly MD 230 [place] [address] PCP - General Internal Medicine 02/22/14 Fani Heck, PharmD 230 [place] [address] Pharmacist Internal Medicine 12/16/22 documented as of this encounter
--- OUTSIDE RECORDS SUMMARY | 2024-08-16 10:24 | XMS_ITS | Encounter Summary ---
Author Organization [employer] Address 75 [facility] 7t [place] [address] Care Team Providers Care Post Doctoral Fellow Name Role Phone Pascual Daly MD Primary Care Provide r Fani Heck PharmD Unavailable [phone] Reason for Visit * Reason Comments Med Refill Encounter Details Date Type Department Care Team (Late Contact Info) Description 12/28/[address] [facility] MEDICINE 230 [place] [address] Titi Gray FNP Major depressive disorder with [...] EDT Medication Management [facility] MEDICINE 230 [place], [place] [phone] Dasia Waters PharmD 230 [place] [address] 09/16/2024 9:30 AM EDT Office Visit [facility] ADULT DENTAL 230 [place] [address] Christian Winchester DDS 230 [place] [address] 10/28/2024 10:30 AM EDT Clinical Support [facility] CHC MED & PEDS [address] [place] [address] Amanda Fernández, RN 505 [place] [address] 11/16/2024 11:15 AM EDT Office Visit [facility] MEDICINE 230 [place] [address] Pascual Daly MD 230 [place] [address] 02/17/2025 10:00 AM EDT Office Visit [facility] ADULT DENTAL 230 [place] [address] Gabriela Gaitan 230 [place] [address] documented as of this encounter Goals Goal [...] as of this encounter Care Teams Post Doctoral Fellow Relationship Specialty Start Date End Date Pascual Daly MD [address] [place] [address] PCP - General Internal Medicine 02/22/14 Fani Heck, PharmD [address] [place] [address] Pharmacist Internal Medicine 12/16/22 documented as of this encounter
--- OUTSIDE RECORDS SUMMARY | 2024-08-16 10:24 | XMS_ITS | Encounter Summary ---
Author Organization [employer] Address 75 [facility] 7t [place] [address] Care Team Providers Care Real Estate Consultant Name Role Phone Pascual Daly MD Primary Care Provide r Fani Heck PharmD Unavailable [phone] Reason for Visit * Reason Onset Date Comments FYI 12/11/2023 Durable Medical Equipment 12/11/2023 Encounter Details Date Type Department Care Team (Late st Contact Info) Description 12/11/2023 Telephone [facility] MEDICINE 230 [place], [place] [phone] Pascual Daly MD 230 [place], [place] [phone] FYI ; Durable Medical Equipment Social History [...] DME scripts to be sent to [facility] which: [facility] bed Please fax over to [phone] documented in this encounter Plan of Treatment Upcoming Encounters Date Type Department Care Team (Late st Contact Info) Description 08/16/2024 11:00 AM EDT Medication Management [facility] MEDICINE 230 [place] [address] Dasia Waters, KristiD 230 [place] [address] 09/16/2024 9:30 AM EDT Office Visit [facility] ADULT DENTAL 230 [place] [address] Christian Winchester DDS 230 [place] [address] 10/28/2024 10:30 AM EDT Clinical Support [facility] CHC MED & PEDS [address] [place] [address] Amadna Fernández, RN [address] [place], [place] 11/16/2024 11:15 AM EDT Office Visit [facility] MEDICINE 230 [place] [address] Pascual Daly MD 230 [place] [address] 02/17/2025 10:00 AM EDT Office Visit [facility] ADULT DENTAL 230 [place] [address] Gabriela Gaitan 230 [place] [address] documented as of this encounter Goals Goal [...] documented as of this encounter Care Teams Real Estate Consultant Relationship Specialty Start Date End Date Pascual Daly MD [address] [place] [address] PCP - General Internal Medicine 02/22/14 Fani Heck, PharmD [address] [place] [address] Pharmacist Internal Medicine 12/16/22 documented as of this encounter
--- OUTSIDE RECORDS SUMMARY | 2024-08-16 10:24 | XMS_ITS | Encounter Summary ---
Author Organization [employer] Address 75 [facility] 7t [place] [address] Care Team Providers Care Data Center Project Manager Name Role Phone Pascual Daly MD Primary Care Provide r Fani Heck PharmD Unavailable [phone] Reason for Visit * Reason Onset Date Comments Appointment Request 09/03/2022 Encounter Details Date Type Department Care Team ([facility] st Contact Info) Description 09/03/2022 Telephone [facility] MEDICINE 230 [place] [address] Pascual Daly MD 230 [place], [place] [phone] Appointment Request Social History Tobacco Use Types [...] Medication Management [facility] MEDICINE 230 [place] [address] Dasia Waters, Woody 230 [place] [address] 09/16/2024 9:30 AM EDT Office Visit [facility] ADULT DENTAL 230 [place] [address] Christian Winchester DDS 230 [place] [address] 10/28/2024 10:30 AM EDT Clinical Support [facility] CHC MED & PEDS 505 [place] [address] Amanda Fernández, RN 505 [place] [address] 11/16/2024 11:15 AM EDT Office Visit [facility] MEDICINE 230 [place] [address] Pascual Daly MD 230 [place] [address] 02/17/2025 10:00 AM EDT Office Visit [facility] ADULT DENTAL 230 [place] [address] Gabriela Gaitan 230 [place] [address] documented as of this encounter Goals Goal [...] documented as of this encounter Care Teams Data Center Project Manager Relationship Specialty Start Date End Date Pascual Daly MD 230 [place] [address] PCP - General Internal Medicine 02/22/14 Fani Heck PharmD 230 [place] [address] Pharmacist Internal Medicine 12/16/22 documented as of this encounter
--- OUTSIDE RECORDS SUMMARY | 2024-08-16 10:24 | XMS_ITS | Encounter Summary ---
Author Organization [employer] Address 75 [facility] 7t [place] [address] Care Team Providers Care Compound Machine Operator Name Role Phone Pascual Daly MD Primary Care Provide r Fani Heck PharmD Unavailable [phone] Reason for Visit * Reason Comments Med Refill Encounter Details Date Type Department Care Team (Late Contact Info) Description 10/02/[address] [facility] MEDICINE [address] [place] [address] Titi Gray FNP Major depressive disorder with [...] 08/16/2024 11:00 AM EDT Medication Management [facility] MEDICINE [address] [place] [place], [place] [phone] Dasia Waters, PharmD 230 [place] [address] 09/16/2024 9:30 AM EDT Office Visit [facility] ADULT DENTAL [address] [place] [address] Christian Winchester DDS [address] [place] [address] 10/28/2024 10:30 AM EDT Clinical Support [facility] CHC MED & PEDS 505 [place] [address] Amanda Fernández, RN 505 [place] [address] 11/16/2024 11:15 AM EDT Office Visit [facility] MEDICINE [address] [place] [address] Pascual Daly MD 230 [place] [address] 02/17/2025 10:00 AM EDT Office Visit [facility] ADULT DENTAL [address] [place] [address] KandyPrimoGabriela [address] [place] [address] documented as of this encounter Goals Goal [...] documented as of this encounter Care Teams Compound Machine Operator Relationship Specialty Start Date End Date Pascual Daly MD [address] [place] [address] PCP - General Internal Medicine 02/22/14 Fani Heck, PharmD [address] [place] [address] Pharmacist Internal Medicine 12/16/22 documented as of this encounter
--- OUTSIDE RECORDS SUMMARY | 2024-08-16 10:24 | XMS_ITS | Encounter Summary ---
Author Organization [employer] Address 75 [facility] 7t [place] [address] Care Team Providers Care Valet Manager Name Role Phone Pascual Daly MD Primary Care Provide r Fani Heck PharmD Unavailable [phone] Reason for Visit * Reason Onset Date Comments Med Refill 01/13/2024 Encounter Details Date Type Department Care Team ([facility] st Contact Info) Description 01/13/2024 Telephone [facility] MEDICINE 230 [place] [address] Pascual Daly MD 230 [place], [place] [phone] Med Refill Social History Tobacco Use Types [...] immediate release tablet To be sent to: [facility] - [place], [place] - [address] [place] [address] documented in this encounter Plan of Treatment Upcoming Encounters Date Type Department Care Team ([facility] st Contact Info) Description 08/16/2024 11:00 AM EDT Medication Management [facility] MEDICINE [address] [place] [address] Dasia Waters, PharmD 230 [place] [address] 09/16/2024 9:30 AM EDT Office Visit [facility] ADULT DENTAL 230 [place] [address] Christian Winchester DDS 230 [place] [address] 10/28/2024 10:30 AM EDT Clinical Support [facility] CHC MED & PEDS 505 [place] [address] Amanda Fernández, RN 505 [place] [address] 11/16/2024 11:15 AM EDT Office Visit [facility] MEDICINE 230 [place] [address] Pascual Daly MD 230 [place] [address] 02/17/2025 10:00 AM EDT Office Visit [facility] ADULT DENTAL [address] [place] [address] Gabriela Gaitan 230 [place] [address] documented as of this encounter Goals Goal [...] documented as of this encounter Care Teams Valet Manager Relationship Specialty Start Date End Date Pascual Daly MD [address] [place] [address] PCP - General Internal Medicine 02/22/14 Fani Heck, PharmD [address] [place] [address] Pharmacist Internal Medicine 12/16/22 documented as of this encounter
--- OUTSIDE RECORDS SUMMARY | 2024-08-16 10:24 | XMS_ITS | Encounter Summary ---
Author Organization [employer] Address 75 [facility] 7t [place] [address] Care Team Providers Care Special Agent Name Role Phone Pascual Daly MD Primary Care Provide r Fani Heck PharmD Unavailable [phone] Encounter Details Date Type Department Care Team (Late st Contact Info) Description 03/11/2022 Abstract [facility] MEDICINE 230 [place] [address] Fani Heck, PharmD [address] [place] [address] Social History Tobacco Use Types Packs/Day Years [...] 11:00 AM EDT Medication Management [facility] MEDICINE [address] [place] [address] Dasia Waters, PharmD 230 [place] [address] 09/16/2024 9:30 AM EDT Office Visit [facility] ADULT DENTAL [address] [place] [address] Christian Winchester DDS 230 [place] [address] 10/28/2024 10:30 AM EDT Clinical Support [facility] CHC MED & PEDS 505 [place] [address] Amanda Fernández, RN 505 [place] [address] 11/16/2024 11:15 AM EDT Office Visit [facility] MEDICINE [address] [place] [address] Pascual Daly MD [address] [place] [address] 02/17/2025 10:00 AM EDT Office Visit [facility] ADULT DENTAL [address] [place] [address] Gabriela Gaitan [address] [place] [address] documented as of this encounter Visit Diagnoses Not on filedocumented in this encounter Care Teams Special Agent Relationship Specialty Start Date End Date Pascual Daly MD [address] [place] [address] PCP - General Internal Medicine 02/22/14 Fani Heck PharmD [address] [place] [address] Pharmacist Internal Medicine 12/16/22 documented as of this encounter
--- OUTSIDE RECORDS SUMMARY | 2024-08-16 10:24 | XMS_ITS | Encounter Summary ---
Author Organization [employer] Address [address] [facility] 7t [place] [address] Care Team Providers Care Highwall Drill Operator Name Role Phone Pascual Daly MD Primary Care Provide r Fani Heck PharmD Unavailable [phone] Encounter Details Date Type Department Care Team (Latest Contact Info) Description 08/12/2024 Travel Social History Tobacco Use Types Packs/Day [...] Description 08/16/2024 11:00 AM EDT Medication Management [facility] MEDICINE [address] [place] [address] Dasia Waters, KristiD [address] [place] [address] 09/16/2024 9:30 AM EDT Office Visit [facility] ADULT DENTAL [address] [place] [address] Christian Winchester DDS [address] [place] [address] 10/28/2024 10:30 AM EDT Clinical Support [facility] CH[facility] MED & PEDS [address] [place] [address] Amanda Fernández, RN 505 [place] [address] 11/16/2024 11:15 AM EDT Office Visit [facility] MEDICINE [address] [place] [address] Pascual Daly MD [address] [place] [address] 02/17/2025 10:00 AM EDT Office Visit [facility] ADULT DENTAL [address] [place] [address] Gabriela Gaitan [address] [place] [address] documented as of this encounter Goals Goal [...] documented as of this encounter Care Teams Highwall Drill Operator Relationship Specialty Start Date End Date Pascual Daly MD [address] [place] [address] PCP - General Internal Medicine 02/22/14 Fani Heck, PharmD [address] [place] [address] Pharmacist Internal Medicine 12/16/22 documented as of this encounter
--- OUTSIDE RECORDS SUMMARY | 2024-08-16 10:24 | XMS_ITS | Encounter Summary ---
Author Organization [employer] Address [address] [facility] 7t [place] [address] Care Team Providers Care College Or University Business Manager Name Role Phone Pascual Daly MD Primary Care Provide r Fani Heck PharmD Unavailable [phone] Reason for Visit * Reason Onset Date Comments FYI 11/06/2023 Encounter Details Date Type Department Care Team ([facility] st Contact Info) Description 11/06/2023 Telephone [facility] MEDICINE [address] [place] [address] Pascual Daly MD [address] [place], [place] [phone] I Social History Tobacco Use Types Packs/Day [...] - 11/06/2023 4:39 PM EDT Tc from [facility] Iker CORDERO PT informing pt has started services For PT 11/06/23 documented in this encounter Plan of Treatment Upcoming Encounters Date Type Department Care Team (Late st Contact Info) Description 08/16/2024 11:00 AM EDT Medication Management [facility] MEDICINE [address] [place] [address] Dasia Waters, KristiD [address] [place] [address] 09/16/2024 9:30 AM EDT Office Visit [facility] ADULT DENTAL [address] [place] [address] Christian Winchester DDS [address] [place] [address] 10/28/2024 10:30 AM EDT Clinical Support [facility] CHC MED & PEDS [address] [place] [address] Amanda Fernández, RN 505 [place] [address] 11/16/2024 11:15 AM EDT Office Visit [facility] MEDICINE [address] [place] [address] Pascual Daly MD [address] [place] [address] 02/17/2025 10:00 AM EDT Office Visit [facility] ADULT DENTAL [address] [place] [address] Kandy, Gabriela [address] [place] [address] documented as of this encounter Goals Goal [...] documented as of this encounter Care Teams College [employer] Business Manager Relationship Specialty Start Date End Date Pascual Daly MD [address] [place] [address] PCP - General Internal Medicine 02/22/14 Fani Heck, PharmD [address] [place] [address] Pharmacist Internal Medicine 12/16/22 documented as of this encounter
--- OUTSIDE RECORDS SUMMARY | 2024-08-16 10:24 | XMS_ITS | Encounter Summary ---
Author Organization [employer] Address [address] [place] [address] 7t [place] [address] Care Team Providers Care Web Content Specialist Name Role Phone Pascual Daly MD Primary Care Provide r Fani Heck PharmD Unavailable [phone] Encounter Details Date Type Department Care Team (Late st Contact Info) Description 03/11/2022 Abstract [facility] MEDICINE [address] [place] [address] Pascual Daly MD [address] [place] [address] Social History Tobacco Use Types Packs/Day Years [...] Medication Management [facility] MEDICINE [address] [place] [address] Dasia Waters, PharmD [address] [place] [address] 09/16/2024 9:30 AM EDT Office Visit [facility] ADULT DENTAL [address] [place] [address] Christian Winchester DDS [address] [place] [address] 10/28/2024 10:30 AM EDT Clinical Support [facility] CHC MED & PEDS [address] [place] [address] Amanda Fernández, RN 505 [place] [address] 11/16/2024 11:15 AM EDT Office Visit [facility] MEDICINE [address] [place] [address] Pascual Daly MD [address] [place] [address] 02/17/2025 10:00 AM EDT Office Visit [facility] ADULT DENTAL [address] [place] [address] Gabriela Gaitan [address] [place] [address] documented as of this encounter Visit Diagnoses Not on filedocumented in this encounter Care Teams Web Content Specialist Relationship Specialty Start Date End Date Pascual Daly MD [address] [place] [address] PCP - General Internal Medicine 02/22/14 Fani Heck PharmD [address] [place] [address] Pharmacist Internal Medicine 12/16/22 documented as of this encounter
--- OUTSIDE RECORDS SUMMARY | 2024-08-16 10:24 | XMS_ITS | Encounter Summary ---
Author Organization [employer] Address [address] [facility] 7t [place] [address] Care Team Providers Care Advanced Manufacturing Associate Name Role Phone Pascual Daly MD Primary Care Provide r Fani Heck PharmD Unavailable [phone] Reason for Visit * Reason Comments Med Refill Encounter Details Date Type Department Care Team ([facility] Contact Info) Description 07/16/2022 Refill [facility] MEDICINE [address] [place] [address] Pascual Daly MD [address] [place], [place] [phone] Social History Tobacco Use Types Packs/Day Years [...] Team ([facility] Contact Info) Description 08/16/2024 11:00 AM EDT Medication Management [facility] MEDICINE [address] [place] [address] Dasia Waters, Woody [address] [place] [address] 09/16/2024 9:30 AM EDT Office Visit [facility] ADULT DENTAL [address] [place] [address] Christian Winchester DDS [address] [place] [address] 10/28/2024 10:30 AM EDT Clinical Support [facility] CHC MED & PEDS [address] [place] [address] Amanda Fernández, RN [address] [place] [address] 11/16/2024 11:15 AM EDT Office Visit [facility] MEDICINE [address] [place] [address] Pascual Daly MD [address] [place] [address] 02/17/2025 10:00 AM EDT Office Visit [facility] ADULT DENTAL [address] [place] [address] Gabriela Gaitan [address] [place] [address] documented as of this encounter Goals Goal [...] documented as of this encounter Care Teams Advanced Manufacturing Associate Relationship Specialty Start Date End Date Pascual Daly MD [address] [place] [address] PCP - General Internal Medicine 02/22/14 Fani Heck, KristiD [address] [place] [address] Pharmacist Internal Medicine 12/16/22 documented as of this encounter
--- OUTSIDE RECORDS SUMMARY | 2024-08-16 10:24 | XMS_ITS | Encounter Summary ---
Author Organization [employer] Address [address] [facility] 7t [place] [address] Care Team Providers Care Medicaid Service Coordinator Name Role Phone Pascual Daly MD Primary Care Provide r Fani Heck PharmD Unavailable [phone] Encounter Details Date Type Department Care Team ([facility] Contact Info) Description 05/29/2022 Abstract [facility] MEDICINE [address] [place] [address] Pascual Daly MD [address] [place] [address] Social History Tobacco Use Types Packs/Day Years [...] Description 08/16/2024 11:00 AM EDT Medication Management [facility] MEDICINE [address] [place] [address] Dasia Waters, KristiD [address] [place] [address] 09/16/2024 9:30 AM EDT Office Visit [facility] ADULT DENTAL [address] [place] [address] Christian Winchester DDS [address] [place] [address] 10/28/2024 10:30 AM EDT Clinical Support [facility] CHC MED & PEDS [address] [place] [address] Amanda Fernández, RN [address] [place] [address] 11/16/2024 11:15 AM EDT Office Visit [facility] MEDICINE [address] [place] [address] Pascual Daly MD [address] [place] [address] 02/17/2025 10:00 AM EDT Office Visit [facility] ADULT DENTAL [address] [place] [address] Gabriela Gaitan [address] [place] [address] documented as of this encounter Goals Goal [...] documented as of this encounter Care Teams Medicaid Service Coordinator Relationship Specialty Start Date End Date Pascual Daly MD [address] [place] [address] PCP - General Internal Medicine 02/22/14 Fani Heck PharmD [address] [place] [address] Pharmacist Internal Medicine 12/16/22 documented as of this encounter
--- OUTSIDE RECORDS SUMMARY | 2024-08-16 10:24 | XMS_ITS | Encounter Summary ---
Author Organization [employer] Address [address] [place] [address] 7t [place] [address] Care Team Providers Care Facing Baster Jumpbasting Name Role Phone Pascual Daly MD Primary Care Provide r Fani Heck PharmD Unavailable [phone] Encounter Details Date Type Department Care Team (Late st Contact Info) Description 03/13/2022 Abstract [facility] MEDICINE [address] [place] [address] Provider, MD Bill Social History Tobacco Use [...] Description 08/16/2024 11:00 AM EDT Medication Management [facility] MEDICINE [address] [place] [address] Dasia Waters, PharmD [address] [place] [address] 09/16/2024 9:30 AM EDT Office Visit [facility] ADULT DENTAL [address] [place] [address] Christian Winchester DDS [address] [place] [address] 10/28/2024 10:30 AM EDT Clinical Support [facility] CHC MED & PEDS [address] [place] [address] Amanda Fernández, AALIYAH [address] [place], [place] 11/16/2024 11:15 AM EDT Office Visit [facility] MEDICINE [address] [place] [address] Pascual Daly MD [address] [place] [address] 02/17/2025 10:00 AM EDT Office Visit [facility] ADULT DENTAL [address] [place] [address] Gabriela Gaitan [address] [place] [address] documented as of this encounter Visit Diagnoses Not on filedocumented in this encounter Care Teams Facing Baster Jumpbasting Relationship Specialty Start Date End Date Pascual Daly MD [address] [place] [address] PCP - General Internal Medicine 02/22/14 Fani Heck, PharmD [address] [place] [address] Pharmacist Internal Medicine 12/16/22 documented as of this encounter
[2024-08-16 11:02] LABS: MANUAL DIFF FLAG NO
[2024-08-16 11:46] LABS: Alanine Aminotransferase 49 U/L (0-31); Alkaline Phosphatase 77 U/L (39-117); Anion Gap 11 (12-20); Aspartate Amino Transferase 39 U/L (5-31); Bilirubin Direct 0.2 mg/dL (0.0-0.5); Bilirubin Total 0.3 mg/dL (0.0-1.0); Blood Urea Nitrogen 17 mg/dL (9-16); Calcium 8.7 mg/dL (8.4-10.2); Carbon Dioxide 30 mmol/L (22-29); Chloride 104 mmol/L (96-108); Cholesterol 145 mg/dL (<200); Estimated Glomerular Filt Rate 49; Glucose Random 188 mg/dL (60-115); HDL Cholesterol 65 mg/dL (>40); LDL Cholesterol Calculated 60 mg/dL (<100); Sodium 140 mmol/L (135-145); Total Protein 6.3 g/dL (6.5-8.0); Triglycerides 100 mg/dL (<150)
[2024-08-16 11:56] LABS: Parathyroid Hormone Intact 187.5 pg/mL (8.7-77.1)
[2024-08-16 12:01] LABS: Thyroid Stimulating Hormone 21.47 uIU/mL (0.32-4.0)
[2024-08-16 12:21] LABS: Basophils Absolute Auto 0.1 X10*3/uL (0.0-0.2); Basophils Percent Auto 1.4 % (0-2); Eosinophils Absolute Auto 1.3 X10*3/uL (0.0-0.4); Eosinophils Percent Auto 14.8 % (0-4); Hemoglobin 11.3 g/dl (12.0-16.0); Imm Gran Abs Auto 0.05 X10*3/uL (0.00-0.03); Imm Gran Pct Auto 0.6 % (0.0-0.4); Lymphocytes Percent Auto 33.8 % (20-40); Mean Corpuscular HGB Conc 31.4 g/dl (31.0-35.0); Mean Corpuscular Hemoglobin 28.6 pg (27.0-33.0); Mean Corpuscular Volume 91.1 fL (80.0-98.0); Mean Platelet Volume 11.1 fL (9.4-12.3); Monocytes Absolute Auto 0.6 X10*3/uL (0.1-1.2); Monocytes Percent Auto 6.5 % (2-11); Neutrophils Absolute Auto 3.8 x10*3/uL (2.0-8.3); Neutrophils Percent Auto 42.9 % (45-73); Platelet Count 186 X10*3/uL (160-400); Red Blood Count 3.95 X10*6/uL (4.20-5.50); Red Cell Distribution Width 14.6 % (11.0-16.0); White Blood Count 8.7 X10*3/uL (4.8-10.8)
== END 2024-08-16 09:22 | disposition home or self-care (01) ==
LOC: HO.HHCL 09:21
PROVIDERS: Nurse Practitioner Adult Health; Visit Provider Internal Medicine
DX: I10 Essential (primary) hypertension (principal); E78.2 Mixed hyperlipidemia; I25.10 Atherosclerotic heart disease of native coronary artery without angina pectoris; E21.1 Secondary hyperparathyroidism, not elsewhere classified; E06.3 Autoimmune thyroiditis; M81.0 Age-related osteoporosis without current pathological fracture
CPT/HCPCS: 36415; 80048; 80061; 80076; 83970; 84439; 84443; 85025

== ENCOUNTER → 2024-08-17 09:43 | Outpatient (REF) | payer OTHER, SELFPAY ==
--- NOTE | 2024-08-17 10:05 | CA_ITS ---
Transthoracic Echocardiogram Patient (Last, First, Middle): Brandie Santana, Gender: Female Date of : 1950 Age: 74 Procedure Date: 08/17/2024 Procedure Type: Transthoracic Echocardiogram Location: OP Height: 149.86 cm Weight: 68.49 kg BSA: 1.64 m2 Heart Rate: 70 bpm BP: 117 / 66 mmHg Shower Room Attendant: SB Referring MD: Osman Uribe MD Symptoms: R06.02 - Shortness of breath Study Quality: Adequate w contrast ECG Rhythm: Sinus Conclusions: - The left ventricular systolic function is normal. The calculated ejection fraction is 62% by biplane method. - There is moderate mitral annular calcification. - There is a small pericardial effusion. Findings Procedure Information Contrast agent, definity, is being given per protocol without apparent complications. Left Ventricle Normal left ventricular cavity size. There is normal left ventricular wall thickness. The left ventricular systolic function is normal. The calculated ejection fraction is 62% by biplane method. There is no evidence of regional wall motion abnormalities. Diastolic function is normal for age. Right Ventricle Normal right ventricular cavity size and systolic function. Aortic Valve There is a normal trileaflet aortic valve. There is no aortic valve stenosis. There is no aortic valve regurgitation. Mitral Valve There is moderate mitral annular calcification. There is trace mitral valve regurgitation. There is no mitral valve stenosis. Pulmonic Valve The pulmonic valve is likely normal. Tricuspid Valve There is trace tricuspid valve regurgitation. There is no evidence of pulmonary hypertension. Great Vessels The asc aorta is normal in size. Venous The inferior vena cava is normal in size and collapses greater than 50% with inspiration. Pericardium/Pleural There is a small pericardial effusion. There are no definitive echocardiographic findings of tamponade physiology. Prior Study Comparison No significant change compared to prior study dated: 07/21/2019. Pericardial effusion more prominent but likely seen in prior images. Measurements 2D Linear Measurements IVSd: 1.00 0.6-0.9/0.6-1.0 cm LVIDd: 3.92 3.9-5.3/4.2-5.9 cm LVIDd Index: 2.39 2.4-3.2/2.2-3.1 cm/m2 LVIDs: 2.33 2.0-3.6 cm LVPWd: 1.00 0.7-1.1 cm LA Diam: 4.20 2.7-3.8/3.0-4.0 cm LAIDs Index: 2.56 1.5-2.3 cm/m2 LV Mass: 152.04 67-162/88-224 g LV Mass Index: 92.71 43-95/49-115 g/m2 LVOT Diam: 2.30 3.0+(-)1.3 cm 2D Systolic Function EF 4C: 56.00 >55% EF 2C: 70.30 >55% EF BiP: 61.90 >55% Mitral Valve MV Pk E: 0.72 MV PK A: 1.07 MV Decel Time: 176.00 E/A: 0.70 E'Lateral: 6.74 E'Medial: 6.20 E/E' Med: 11.50 E/E' Lat: 10.60 PHT: 51.00 MVA PHT: 4.31 Decel [place]: 4.08 Aortic Valve AoV Pk Bob: 1.20 AoV Pk Grad: 6.00 [place]AV[place]: 4.19 LVOT LVOT Pk Bob: 1.19 LVOT Mn Bob: 0.88 LVOT VTI: 0.28 LVOT Pk Grad: 6.00 LVOT Mn Grad: 3.00 LVOT Diam: 2.30 LVOT Area: 4.15 Diastolic Function MV Pk E: 0.72 MV Pk A: 1.07 E/A: 0.70 E'Medial: 6.20 E/E' Med: 11.50 E' Laterial: 6.74 E/E' Lat: 10.60 Right Ventricle TAPSE (mm): 15.20 TVS' Bob: 13.80 Tricuspid Valve TR Pk Bob: 2.46 TR Pk Grad: 24.00 RA Press: 3.00 RVSP: 27.00 Great Vessels Aorta Sinus of Valsalva: 3.00 2.0-3.5 cm Ao Asc: 3.00 2.1-3.4 cm Pulmonary Valve PV Pk Bob: 0.79 Peak PV Grad: 3.00 Updated in Other Vendor System with Status of Final Osman Uribe MD electronically signed on 08/18/2024 12:14:09 PM with status of Final
--- OUTSIDE RECORDS SUMMARY | 2024-08-17 10:49 | XMS_ITS | Data Portability ---
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 Plan of Treatment Reminders Order Date Submit Date Provider Last Modified By Organization Details Last Modified Time Details Appointments None recorded. Lab None recorded. Referral None recorded. Procedures None recorded. Surgeries None recorded. Imaging None recorded. Medication Orders oxycodone 5 mg tablet 2023 024 [facility] , [address] [place] [address], [address], 4 21:23:28 oxycodone 5 mg tablet 2023 024 [facility] , [address] [place] [address], [address], 4 13:28:18 Patient TargetsNo targets recorded. Patient InstructionsNo instructions recorded. Reason for Referral None Reported. 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 2023 Dori Pena NP [address] [facility], [address], [place], [address], [facility] 4 15:49:21 Hypertensive disorder 99038233 Active 2023 Dori Pena NP [address], [address], [place], [address], [facility] 4 15:49:57 Gastroesophage al reflux disease 512525129 Active 2023 Dori Pena NP [address], [address], [place], [address], [place] [facility] 4 15:51:24 Rheumatoid arthritis 93499762 Active 2023 Dori Pena NP [address], [address], [place], [address], [facility] 4 15:51:29 Mixed anxiety and depressive disorder 338569158 Active 2023 Dori Pena NP [address], [address], [place], [address], [place] [facility] 4 15:51:45 Obesity 355296494 Active 2023 Dori Pena NP [address], [address], [place], [address], [facility] 4 15:51:51 Closed flail chest 645724622 Active 2023 Dori Pena NP [address], [address], [place], [address], [facility] 4 15:52:35 Asthenia 34061730 Active 2023 Dori Pena NP [address], [address], [place], [address], [facility] 4 15:52:46 Irritable bowel syndrome 82120917 Active 2023 Dori Pena NP [address], [address], [place], [address], [facility] 4 16:06:46 Recurrent falls 002403612 Active 2023 Dori Pena NP [address], [address], [place], [address], [facility] 4 16:38:03 Problem Notes None recorded. Procedures Surgical History Date Name Laterality Status Provider Name and Address Organization Details Recorded Time bypass gastroenterostomy completed Dori Pena, AAKASH [address], [place], [address], [facility] 09/17/2023 15:40:41 Laparoscopic cholecystectomy completed Dori Pena NP [address] [facility], [address], [place], [address], [facility] 09/17/2023 15:41:25 fixed suspension procedure of urinary bladder neck completed Dori Pena NP [address], [place], [address], [facility] 09/17/2023 15:42:01 Appendectomy completed Dori Pena NP [address], [place], [address], [facility] 09/17/2023 15:42:11 bilateral cataract surgery completed Dori Pena NP [address] [facility], [address], [place], [address], [facility] 09/17/2023 15:42:26 Imaging Results None recorded. Procedure Notes None recorded. Medical Equipment None Reported. Allergies Allergen ID Allergen Name Allergen Category Reaction Reaction Severity Criticality Documentation Date Start Date Code Code System Note Provider Name and Address Organization Details Recorded Time 55584 celecoxib medicatio n other Not available unabletoasse 09/17/2023 27428 7 RxNorm unkno wn Not Available Not Available Not Available 89343 lorazepam medicatio n other [facility] 09/17/2023 6470 RxNorm unkno wn Not Available Not Available Not Available 12981 tramadol medicatio n other Not available unabletoasse 09/17/2023 84173 RxNorm unkno wn Not Available Not Available Not Available 94622 zolpidem medicatio n other Not available unabletoasse 09/17/2023 85297 RxNorm unkno wn Not Available Not Available [...] Address Organization Details Last Updated DateTime 4 52730.7 8 g 98 /min 18 /min 97.8 [degF] 94 % 94 % 150 mm[Hg] 77 mm[Hg] Dori Pena NP [address] [facility] [address], [place], [address], [facility] 4 10:49:41 Date Recorded Body weight Heart rate Respiratory rate Body temperature Oxygen saturation Oxygen saturation in Arterial blood by Pulse oximetry Systolic blood pressure Diastolic blood pressure Provider Name and Address Organization Details Last Updated DateTime 4 80849.7 8 g 83 /min 18 /min 97 [degF] 98 % 98 % 148 mm[Hg] 74 mm[Hg] Dori Pena NP [address] [facility] [address], [place], [address], [facility] 4 13:29:12 Date Recorded Body weight Heart rate Respiratory rate Body temperature Oxygen saturation Oxygen saturation in Arterial blood by Pulse oximetry Systolic blood pressure Diastolic blood pressure Provider Name and Address Organization Details Last Updated DateTime 4 15598.7 8 g 76 /min 18 /min 97.8 [degF] 97 % 97 % 128 mm[Hg] 78 mm[Hg] Dori Pena NP [address] [facility] [address], [place], [address], [facility] 4 12:05:35 Date Recorded Body weight Heart rate Respiratory rate Body temperature Oxygen saturation Oxygen saturation in Arterial blood by Pulse oximetry Systolic blood pressure Diastolic blood pressure Provider Name and Address Organization Details Last Updated DateTime 4 67130 g 80 /min 18 /min 98 [degF] 95 % 95 % 111 mm[Hg] 60 mm[Hg] Dori Pena NP [address] [facility] [address], [place], [address], [employer] [facility] 4 11:40:36 Date Recorded Body weight Heart rate Respiratory rate Body temperature Oxygen saturation Oxygen saturation in Arterial blood by Pulse oximetry Systolic blood pressure Diastolic blood pressure Provider Name and Address Organization Details Last Updated DateTime 4 33942 g 74 /min 18 /min 98.4 [degF] 95 % 95 % 124 mm[Hg] 68 mm[Hg] Dori Pena NP [address] [facility], [facility] [address], [place], [address], [employer] 4 13:12:09 Social History Question Answer Notes LastModified by Organizat ion Details LastModified Time Tobacco Smoking Status Never Smoker Dori Pena NP [address] [facility], [facility] [address], [place], [address], [facility] 09/17/2023 15:39:38 Do You Have An Advance [...] (RSV) vaccine, unspecified 4 completed Radha batista, [facility] 09/19/2023 16:11:12 Tdap 4 completed Radha Stoll null, [facility] 09/19/2023 16:11:26 Td(adult) unspecified formulation 3 completed Radha Jerman null, [facility] 09/19/2023 16:11:43 Td(adult) unspecified formulation 3 completed Radha Jerman null, [facility] 09/19/2023 16:11:51 Pneumococcal conjugate PCV 13 6 completed Radha Jerman null, [facility] 09/19/2023 16:12:53 Pneumococcal conjugate PCV20, polysaccharide [id number] conjugate, adjuvant, PF 4 completed Radha Stoll null, [facility] 09/19/2023 16:13:07 pneumococcal polysaccharide PPV23 1 completed Radha Stoll null, [facility] 09/19/2023 16:13:22 pneumococcal polysaccharide PPV23 4 completed Radha Jerman null, [facility] 09/19/2023 16:13:31 influenza, unspecified formulation 2 [facility] 16:13:47 influenza, unspecified formulation 3 completed Radha Jerman null, [facility] 09/19/2023 16:13:55 MMR 8 completed Radha Jerman [facility], [facility] 09/19/2023 16:14:21 SARS-COV-2 (COVID-19) vaccine, UNSPECIFIED 1 completed Radha Jerman null, [facility] 09/19/2023 16:15:58 SARS-COV-2 (COVID-19) vaccine, UNSPECIFIED 1 completed Radha Jerman null, [facility] 09/19/2023 16:16:13 SARS-COV-2 (COVID-19) vaccine, UNSPECIFIED 1 [facility] 16:16:27 SARS-COV-2 (COVID-19) vaccine, UNSPECIFIED 2 completed Radha Stoll [facility] 09/19/2023 16:17:15 SARS-COV-2 (COVID-19) vaccine, UNSPECIFIED 2 completed Radha Stoll [facility] 09/19/2023 16:21:38 zoster, unspecified formulation 5 completed Radha Stoll [facility] 09/19/2023 16:23:04 zoster, unspecified formulation 9 completed Radha [facility] 09/19/2023 16:23:18 zoster, unspecified formulation 9 completed [facility] 09/19/2023 16:25:18 Past Encounters Encounter ID Performer Location Encounter Start Date Encounter Closed Date Diagnosis/Indication Diagnosis SNOMED-CT Code Diagnosis ICD10 Code Diagnosis Note [id number] Dori Pena NP [address] [address] 09/17/2023 15:22:09 09/23/2023 14:50:24 Closed flail chest 610697529 S22.5XXD with multiple rib fractures and clavicular [...] If stable no further workup needed. Asthenia 50103143 R53.1 with notable weakness due to injuryPT OT eval and treatsuppo rtive caremonito r Type 1 frank betes mellitus 69037803 E10.9 tresiba 30 unit sc qhsinsulin 2-14 SSI sc qidhsmonit or BS and adjust as needed Hypertensive disorder 38 430261 I10 not on meds for thisamlodi pine 10 mg po dailylosar zaragoza 100 mg po dailymonit or bp/vitals 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 709599 E06.3 levothyrox ine 112 mcg dailymonit or tsh as needed Gastroesop hageal reflux disease 298930226 K21.9 esomeprazo le 40 mg o daily Obesity 265587608 E66.9 military technology specialist to consultsup portive careportio n controlmon itor weight Mixed anxi ety and depressive disorder 712110474 F41.8 aripiprazo le 20 mg dailyvenla faxine 150 mg po dailyprazo sin 6 mg po qhsmelaton in 3 mg po qhshydroxy zine 10 mg po q 8 hours prn anxietyclo nazepam 0.5 mg po q 8 hours prn anxietycar vedilol 6.25 mg po bidmonitor Rheumatoid arthritis 698 99667 M06.9 enbrel 50 mg sc q 7dayscalci um citrate 400 mg po bidmonitor for reliefsee pain management above with flail chest Irritable bowel syndrome 12544620 K58.9 ? IBSlinzess 290 mcg q ammonitor Deficiency anemias 94172 3007 D53.9 folic acidvit n67yvebpar Coronary arteriosclerosis 89885763 I25.10 hx of MIatorvast atin 20 mg po dailyclopi dogrel 75 mg po q amsee above htn medsmonito r Recurrent falls 64317414 2 R29.6 reports history of falls with edger hand at home to help her and balance issuesrepo rts more than 5 falls/year supportive caremonito r [id number] JESSICA HINDS NP [place] [id number] [place] [address] 09/18/2023 13:29:08 09/23/2023 15:13:15 Closed flail chest 533705102 S22.5XXD with multiple rib fractures and clavicular [...] If stable no further workup needed. Asthenia 75576152 R53.1 with notable weakness due to injuryPT OT eval and treatsuppo rtive caremonito r Type 1 frank betes mellitus 07871819 E10.9 A1C 8.8%Contin eu:tresiba 30 unit sc qhsinsulin 2-14 SSI sc qidmonitor BS and adjust as needed Hypertensive disorder 38 512999 I10 amlodipine 10 mg po dailylosar zaragoza 100 mg po dailycoreg 6.25 mg bidmonitor bp/vitals 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 999567 E06.3 levothyrox ine 112 mcg dailymonit or tsh as needed Gastroesop hageal reflux disease 132064356 K21.9 esomeprazo le 40 mg o daily Deficiency anemias 22966 3007 D53.9 folic acidvit [id number] Obesity 320438822 E66.9 military technology specialist to consultsup portive careportio n controlmon itor weight Mixed anxi ety and depressive disorder 741660700 F41.8 aripiprazo le 20 mg dailyvenla faxine 150 mg po dailyprazo sin 6 mg po qhsmelaton in 3 mg po qhshydroxy zine 10 mg po q 8 hours prn anxietyclo nazepam 0.5 mg po q 8 hours prn anxietymon itor Rheumatoid arthritis 698 12412 M06.9 enbrel 50 mg sc q 7dayscalci um citrate 400 mg po bidmonitor for reliefsee pain management above with flail chest Irritable bowel syndrome 07896152 K58.9 ? IBSlinzess 290 mcg q ammonitor Coronary arteriosclerosis 86818020 I25.10 hx of MIatorvast atin 20 mg po dailyclopi dogrel 75 mg po q amsee above htn medsmonito r Recurrent falls 95059128 2 R29.6 reports history of falls with edger hand at home to help her and balance issuesrepo rts more than 5 falls/year supportive caremonito r [id number] Dori Pena NP [facility] [address] [address] 09/22/2023 14:27:57 09/29/2023 19:16:34 Closed flail chest 868436139 S22.5XXD with multiple rib fractures and clavicular [...] If stable no further workup needed. Asthenia 30100800 R53.1 with notable weakness due to injuryPT OT eval and treatsuppo rtive caremonito r Type 1 frank betes mellitus 40595055 E10.9 BS 81-252 [id number] 8.8%contin ue:tresiba 30 unit sc qhsinsulin 2-14 SSI sc qidmonitor BS and adjust as needed Hypertensive disorder 38 764871 I10 improving lately, boderline highcontam lodipine 10 mg po dailylosar zaragoza 100 mg po dailycoreg 6.25 mg bidmonitor bp/vitals 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 564617 E06.3 contlevoth yroxine 112 mcg dailymonit or tsh as needed Gastroesop hageal reflux disease 100236047 K21.9 esomeprazo le 40 mg o daily Deficiency anemias 74270 3007 D53.9 folic acidvit [id number] Obesity 997526531 E66.9 military technology specialist to consultsup portive careportio n controlmon itor weight Mixed anxi ety and depressive disorder 910283618 F41.8 contaripip razole 20 mg dailyvenla faxine 150 mg po dailyprazo sin 6 mg po qhsmelaton in 3 mg po qhshydroxy zine 10 mg po q 8 hours prn anxietyclo nazepam 0.5 mg po q 8 hours prn anxietymon itor Rheumatoid arthritis 698 99919 M06.9 enbrel 50 mg sc q 7dayscalci um citrate 400 mg po bidmonitor for reliefsee pain management above with flail chest Irritable bowel syndrome 68562449 K58.9 ? IBSlinzess 290 mcg q ammonitor Coronary arteriosclerosis 85290919 I25.10 hx of MIatorvast atin 20 mg po dailyclopi dogrel 75 mg po q amsee above htn medsmonito r Recurrent falls 16830483 2 R29.6 reports history of falls with edger hand at home to help her and balance issuesrepo rts more than 5 falls/year supportive caremonito r Acute cystitis 76411155 N30.00 reports dysuria and occassiona l incontinen ce latelyurin e culture returned showing > 100,000 klebsiella pneumo ssp and started on ceftriaxon e 1gram IM and cefpodoxim e 200 mg po bid x 7 days with probiotic by on provider over the weekend.mo nitor [id number] Jonel Alamo MD [address] [address] 09/23/2023 11:01:43 09/29/2023 19:25:59 Closed fracture of multiple left ribs 1536415331 7692500 S22.42XG see HPIleft rib fxs 2-6 with concern for flail chest , with clavicular fxeval by surgery with no interventi on indicatedm onitor respirator y statusutil ize incentive spirometer monitor for pain controlupd ate surgery with concerns Asthenia 75024869 R53.1 PT OT eval and treatmonit or need for increased support in community Type 1 frank betes mellitus 50204470 E10.9 tresiba 30 units qdSS insulinmon itor glucose and need to titrate Hypertensive disorder 38 232952 I10 norvasc 10 mg qdcoreg 6.25 mg bidlosarta n 100 mg qdcurrentl y elevatedmo nitor need for increased control 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 331389 E06.3 hx of added to PMHmaintai priscilla onsynthroi d 112 mcg qdmonitor tsh prn Gastroesop hageal reflux disease 383122687 K21.9 nexium 40 mg qd continuedm onitor for effect Obesity 169267562 E66.09 dietary eval in patient with baseline DM Mixed anxi ety and depressive disorder 748547543 F41.8 carrying dx requiring multiple medication swill continue out patient medication s includinga bility and ativanmoni tor moodpsych eval prn Rheumatoid arthritis 698 31081 M06.9 remains onenbrel 50 mg q friday Irritable bowel syndrome 79569903 K58.9 ? IBSlinzess 290 mcg q ammonitor Coronary arteriosclerosis 18514993 I25.10 hx of MIatorvast atin 20 mg po dailyclopi dogrel 75 mg po q amsee above htn medsmonito r Recurrent falls 74877124 2 R29.6 reports history of falls with edger hand at home to help her and balance issuesrepo rts more than 5 falls/year supportive caremonito r Solitary n odule of lung 481574642 R91.1 question right 4 mm upper lobe nodulecons ider repeat scan in 6-12 months Primary insomnia 5780815 F51.01 continue melatoninm onitor need to titrate Abnormal weight loss 267 038837 R63.4 weight dropped > 12 lbs in a few days from admitappea rs to be error in initial intake weightwill monitor Acute cystitis 37071141 N30.00 now on cefpodoxim e to complete coursemoni tor for recurrent disease [id number] Dori Pena NP [facility] [address] [place] [address] 09/24/2023 09:21:20 09/29/2023 19:39:42 Closed fracture of multiple left ribs 9968931466 0243986 S22.42XG with multiple rib fractures and clavicular [...] in am off pmadjust as needed. Asthenia 32225412 R53.1 PT OT eval and treatmonit or need for increased support in community Type 1 frank betes mellitus 62722682 E10.9 BS controlled conttresib a 30 units qdSS insulinmon itor glucose and need to titrate Hypertensive disorder 38 100909 I10 stable on below regimennor vasc 10 mg qdcoreg 6.25 mg bidlosarta n 100 mg qdcurrentl y elevatedmo nitor need for increased control 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 200371 E06.3 hx of added to PMHmaintai priscilla onsynthroi d 112 mcg qdmonitor tsh prn Gastroesop hageal reflux disease 573388774 K21.9 nexium 40 mg qd continuedm onitor for effect Obesity 230637055 E66.09 dietary eval in patient with baseline DM Rheumatoid arthritis 698 84507 M06.9 remains onenbrel 50 mg q friday Irritable bowel syndrome 01054455 K58.9 ? IBSlinzess 290 mcg q ammonitor Coronary arteriosclerosis 29709927 I25.10 hx of MIatorvast atin 20 mg po dailyclopi dogrel 75 mg po q amsee above htn medsmonito r Recurrent falls 86208320 2 R29.6 reports history of falls with edger hand at home to help her and balance issuesrepo rts more than 5 falls/year supportive caremonito r Primary insomnia 4457754 F51.01 continueme latoninmon itor need to titrate Abnormal weight loss 267 435026 R63.4 weight dropped > 12 lbs in a few days from admitappea rs to be error in initial intake weight6/ reweigh pt todaywill monitor Acute cystitis 96983029 N30.00 now on cefpodoxim e to complete courseaysm ptomaticmo nitor for recurrent disease [id number] Dori Pena, AAKASH [facility] [address] [place] [address] 09/29/2023 10:39:23 10/03/2023 11:24:38 Closed fracture of multiple left ribs 0612213708 8035841 S22.42XG with multiple rib fractures and clavicular [...] to left shoulderad just as needed. Asthenia 24267912 R53.1 PT OT eval and treatmonit or need for increased support in community Type 1 frank betes mellitus 21772920 E10.9 BS controlled conttresib a 30 units qdSS insulinmon itor glucose and need to titrate Hypertensive disorder 38 097649 I10 stable on below regimen with slightly high bp likley related to pain, monitorcon tnorvasc 10 mg qdcoreg 6.25 mg bidlosarta n 100 mg qdcurrentl y elevatedmo nitor need for increased control 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 498729 E06.3 hx of added to PMHmaintai priscilla onsynthroi d 112 mcg qdmonitor tsh prn Gastroesop hageal reflux disease 948843921 K21.9 contnexium 40 mg qdmonitor for effect Obesity 077445041 E66.09 dietary evalbaseli ne DMweight today please Rheumatoid arthritis 698 73500 M06.9 remains onenbrel 50 mg q friday Irritable bowel syndrome 24773582 K58.9 ? IBSlinzess 290 mcg q ammonitor Coronary arteriosclerosis 92057809 I25.10 hx of MIatorvast atin 20 mg po dailyclopi dogrel 75 mg po q amsee above htn medsmonito r Recurrent falls 21914805 2 R29.6 reports history of falls with edger hand at home to help her and balance issuesrepo rts more than 5 falls/year supportive caremonito r Primary insomnia 0732886 F51.01 continueme latoninmon itor need to titrate Abnormal weight loss 267 462074 R63.4 weight dropped > 12 lbs in a few days from admitappea rs to be error in initial intake weight6/10 reweigh pt todaywill monitor Acute cystitis 41574606 N30.00 resolved cefpodoxim e to complete courseaysm ptomaticmo nitor for recurrent disease Mixed anxi ety and depressive disorder 361583846 F41.8 contaripip razole 20 mg dailyvenla faxine 150 mg po dailyprazo sin 6 mg po qhsmelaton in 3 mg po qhshydroxy zine 10 mg po q 8 hours prn anxiety6/1 0 renew clonazepam 0.5 mg po q 8 hours prn anxietymon itor [id number] [facility] [address] 10/02/2023 13:28:32 10/07/2023 10:08:18 Hypertensive disorder 16724173 I10 stable on below regimen as it comes down to 120s systolic post medication contnorvas c 10 mg qdcoreg 6.25 mg bidlosarta n 100 mg qdmonitor need for increased control Closed fra cture of multiple left ribs 1409601313 0785037 S22.42XG with left rib fxs 2-6 with [...] OT eval and txadjust as needed. Asthenia 33339765 R53.1 PT OT eval and treatmonit or need for increased support in community Type 1 frank betes mellitus 43318678 E10.9 BS controlled glucernaco nttresiba 30 units qdSS insulinmon itor glucose and need to titrate Gastroesop hageal reflux disease 960971155 K21.9 contnexium 40 mg qdmonitor for effect Rheumatoid arthritis 698 88104 M06.9 remains onenbrel 50 mg q friday Irritable bowel syndrome 10665188 K58.9 ? IBSlinzess 290 mcg q ammonitor Coronary arteriosclerosis 14009228 I25.10 hx of MIcoreg 6.25 mg po bidatorvas tatin 20 mg po dailyclopi dogrel 75 mg po q amsee above htn medsmonito r Recurrent falls 51429279 2 R29.6 reports history of falls with edger hand at home to help her and balance issuesrepo rts more than 5 falls/year supportive care and therapy here for balance, strengthen ing, gait, mobility, endurancem onitor Abnormal weight loss 267 027087 R63.4 weight dropped > 12 lbs in a few days from admitappea rs to be error in initial intake weight09/28 reweigh pt today10/01 reweight pt today, no weight since 09/21will monitor Mixed anxi ety and depressive disorder 953045641 F41.8 contaripip razole 20 mg dailyvenla faxine 150 mg po dailyprazo sin 6 mg po qhsmelaton in 3 mg po qhshydroxy zine 10 mg po q 8 hours prn anxiety6/ 0 renew clonazepam 0.5 mg po q 8 hours prn anxiety x 14 days10/01 cont as abovemonit or [id number] Dori Pena NP [facility] [address] [place] [address] 10/06/2023 12:02:36 10/09/2023 09:34:42 Closed fracture of multiple left ribs 4283136637 1239925 S22.42XG with left rib fxs 2-6 with [...] txadjust as needed. Abnormal weight loss 267 056334 R63.4 weight dropped > 12 lbs in a few days from admitappea rs to be error in initial intake weight10/04 160 lbs which is same as 09/22/23will monitor Hypertensive disorder 38 344107 I10 stable on below regimen as it comes down to 120s systolic post medication contnorvas c 10 mg qdcoreg 6.25 mg bidlosarta n 100 mg qdmonitor need for increased control Asthenia 22579302 R53.1 PT OT eval and treatmonit or need for increased support in community Type 1 frank betes mellitus 73724708 E10.9 pt having syrup and gingerale at [...] and need to titrate Rheumatoid arthritis 698 69400 M06.9 remains onenbrel 50 mg q friday Irritable bowel syndrome 81250173 K58.9 with constipati on today, states many days10/05 mon given today, will do supp if no bm by 4 pm10/05 start senna 8.6 mg po daily? IBSlinzess 290 mcg q ammonitor Coronary arteriosclerosis 84943789 I25.10 hx of MIcoreg 6.25 mg po bidatorvas tatin 20 mg po dailyclopi dogrel 75 mg po q amsee above htn medsmonito r Mixed anxi ety and depressive disorder 344118509 F41.8 contaripip razole 20 mg dailyvenla faxine 150 mg po dailyprazo sin 6 mg po qhsmelaton in 3 mg po qhshydroxy zine 10 mg po q 8 hours prn anxiety09/19 0 renew clonazepam 0.5 mg po q 8 hours prn anxiety x 14 days10/01 cont as above10/05 stable today with above planmonito r [id number] [facility] [address] 10/08/2023 11:40:06 10/15/2023 15:50:32 Type 1 diabetes mellitus 50547143 E10.9 pt having syrup and gingerale at [...] and need to titrate Irritable bowel syndrome 92495228 K58.9 with constipati on resolved with mom on 7 mon given today10/05 start senna 8.6 mg po daily? IBSlinzess 290 mcg q am10/07 having bm regularly nowmonitor Closed fra cture of multiple left ribs [id number] 4928589 S22.42XG with left rib fxs 2-6 with [...] txadjust as needed. Abnormal weight loss 267 414350 R63.4 weight dropped > 12 lbs in a few days from admitappea rs to be error in initial intake weight10/04 160 lbs which is same as 09/22/23, ? incorrect admit [facility] Hypertensive disorder 38 717439 I10 stable on below regimen as it comes down to 120s systolic post medication contnorvas c 10 mg qdcoreg 6.25 mg bidlosarta n 100 mg qdmonitor need for increased control Asthenia 93726951 R53.1 PT OT eval and treatmonit or need for increased support in community Rheumatoid arthritis 698 56309 M06.9 remains onenbrel 50 mg q friday Coronary arteriosclerosis 18366638 I25.10 hx of MIcoreg 6.25 mg po bidatorvas tatin 20 mg po dailyclopi dogrel 75 mg po q amsee above htn medsmonito r Mixed anxi ety and depressive disorder 788909573 F41.8 contaripip razole 20 mg dailyvenla faxine 150 mg po dailyprazo sin 6 mg po qhsmelaton in 3 mg po qhshydroxy zine 10 mg po q 8 hours prn anxiety/ 0 renew clonazepam 0.5 mg po q 8 hours prn anxiety x 14 days10/01 cont as above10/05 stable today with above plan10/07 stable today with above planmonito r Hyperkalemia 46835343 E8 7.5 k of 5.7 on give kayexalate 15 gm today10/08 bmp in ammonitor for additional e lyte abbormalit ies [id number] Dori Pena NP [address] [address] 10/09/2023 13:08:06 10/15/2023 16:27:22 Closed fracture of multiple left ribs [id number] 4111607 S22.42XG resolving with left rib fxs 2-6 [...] prnadjust as needed outpt with pcp Hyperkalemia 70062573 E8 7.5 k of 5.7 on give kayexalate 15 gm on 10/07monito r for additional e lyte abnormalit ies outpt with pcp Type 1 frank betes mellitus 16199593 E10.9 BS slightly high while at rehab with eating sugary foods/drin ksPlan: diet sodas and diet syrup and less sugary choicescon tglucernat resiba 30 units qdSS insulin with meals as per home schedmonit or glucose and need to titrate outpt with pcp outpt Irritable bowel syndrome 05468346 K58.9 with constipati on resolvedse nna 8.6 mg po daily (started at rehab)? IBSlinzess 290 mcg q ammonitor with pcp outpt Abnormal weight loss 267 310210 R63.4 weight dropped > 12 lbs in a few days from admitappea rs to be error in initial intake weight10/04 160 lbs which is same as 09/22/23, ? incorrect admit weight but seems stable nowmonitor oupt with pcp Hypertensive disorder 38 636412 I10 stable on below regimen as it comes down to 120s systolic post medication contnorvas c 10 mg qdcoreg 6.25 mg bidlosarta n 100 mg qdmonitor need for increased control outpt with pcp Asthenia 58468022 R53.1 PT OT eval and treat outpt prnmonitor need for increased support in community with pcp Rheumatoid arthritis 698 17034 M06.9 remains onenbrel 50 mg q fridaymoni tor outpt with pcp Coronary arteriosclerosis 68220899 I25.10 hx of MIcoreg 6.25 mg po bidatorvas tatin 20 mg po dailyclopi dogrel 75 mg po q amsee above htn medsmonito r outpt wtih pcp 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 contaripip razole 20 mg dailyvenla faxine 150 mg po dailyprazo sin 6 mg po qhsmelaton in 3 mg po qhshydroxy zine 10 mg po q 8 hours prn anxietyclo nazepam 0.5 mg po q 8 hours prn anxietymon itor outpt with pcp Gastroesop hageal reflux disease 190072360 K21.9 contnexium 40 mg qdmonitor for effect outpt with pcp Recurrent falls 64557987 2 R29.6 reports history of falls with edger hand at home to help her and balance issuesrepo rts more than 5 falls/year supportive care and therapy here for balance, strengthen ing, gait, mobility, endurance outpt rpnmonitor outpt with pcp 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 728614 E06.3 hx of added to PMHmaintai priscilla onsynthroi d 112 mcg qdmonitor tsh prn with pcp Obesity 462349989 E66.09 dietary evalbaseli ne DMweight to be monitored with pcp outpt Primary insomnia 7816685 F51.01 continueme latoninmon itor need to titrate outpt Acute cystitis 62324367 N30.00 resolved cefpodoxim e to complete courseaysm ptomaticmo nitor for recurrent disease outpt with pcp Health Concerns Section Related Observation LastModified by Organization Detai ls LastModified Time None Recorded Concern Status LastModified by Organization Details LastModified Time None Recorded Advance Directives Directive N: Payers Encounter Date Sequence Insurance Name Policy Number Policy Patten Covered Member ID Patten Member ID Guarantor Name 09/29/2023 1 [facility] - DOS ON OR AFTER 2022 - [place]V ANTAGE - PPO) Brandie Luevano [id number] Brandie Luevano 10/02/2023 1 [facility] - DOS ON OR AFTER 2022 - [place]V [place] - [place]) Brandie Luevano [id number] Brandie Luevano 10/06/2023 1 [facility] - DOS ON OR AFTER 2022 - [place]V ANTAGE - [place]PO) Brandie Tanga [id number] Brandie Luevano 10/08/2023 1 [facility] - DOS ON OR AFTER 2022 - [place]V [place] - [place]PO) Brandie Luevano [id number] Brandie Luevano 10/09/2023 1 [facility] - DOS ON OR AFTER 2022 - [place]V [place]TAGE - [place]PO) Brandie Luevano [id number] Brandie Luevano Notes Date Note Type Note [...] [facility] [address], [place], [address], [place] [employer] 09/29/2023 11:09:33 10/02/2023 text/html Pt is seen [...] is sitting up in bed with her IMAGING NURSE visiting. She has her sling in [...] [address] [facility], [address], [place], [address], [facility] [employer] 10/02/2023 13:48:50 10/06/2023 text/html Pt is seen for a n acute rounding visit. Brandie is working here at [facility] and is feeling good and more mobile lately with left sling in place. She continues with therapy and making gains. She was treated for a UTI when she first came to [facility] and denies any urinary symptoms. Nursing noted [...] [address] [facility], [address], [place], [address], [employer] 10/06/2023 12:26:22 10/08/2023 text/html Pt is seen [...] in a sling for comfort. While at [facility]:She was treated for a UTI when she first came to [facility] and denies any urinary symptoms. Nursing noted [...] [address] [facility], [address], [place], [address], [employer] 10/08/2023 12:05:52 10/09/2023 text/html Pt is seen [...] in a sling for comfort. While at [facility]:She was treated for a UTI when she first came to [facility] and denies any urinary symptoms. Nursing noted [...] [address] [facility], [address], [place], [address], [facility] 10/09/2023 16:50:56 OBGyn Episode No OBEpisode recorded.
--- OUTSIDE RECORDS SUMMARY | 2024-08-17 10:49 | XMS_ITS | Encounter Summary ---
Author Organization [employer] Address [address] [facility] 7t [place] [address] Care Team Providers Care Lap Winding Machine Operator Name Role Phone Pascual Daly MD Primary Care Provide r Fani Heck PharmD Unavailable + Dasia Waters PharmD Unavailable [phone] Reason for Visit * Reason Comments Med Refill Encounter Details Date Type Department Care Team ([facility] st Contact Info) Description 03/27/2023 Refill [facility] MED & PEDS [address] [place] [address] Titi Gray FNP Major depressive disorder with [...] Care Team (Late st Contact Info) Description 09/15/2024 10:00 AM EDT Medication Management [facility] [address] [place] [address] 09/16/2024 9:30 AM EDT Office Visit [facility] ADULT DENTAL [address] [place] [address] Christian Winchester DDS [address] [place] [address] 10/28/2024 10:30 AM EDT Clinical Support [facility] MED & PEDS [address] [place] [address] Amanda Fernández, AALIYAH [address] [place] [address] 11/16/2024 11:15 AM EDT Office Visit [facility] [address] [place] [address] Pascual Daly MD [address] [place] [address] 02/17/2025 10:00 AM EDT Office Visit [facility] ADULT DENTAL [address] [place] [address] Gabriela Gaitan [address] [place] [address] documented as of this encounter Goals Goal Patient Goal Type Associated Problems Recent Progress Patient-Stated? Author Blood Pressure < 140/90 Blood Pressure 142/72( 025 12:49 PM EDT) No Fani Heck, Woody documented as of this encounter Visit Diagnoses Diagnosis Major depressive disorder with psychotic features (CMS/HCC) documented in this encounter Additional Health Concerns Assessment Noted Time PHQ-9 Depression Total Score: 9 02/25/20 23 11:02 AM EST documented as of this encounter Care Teams Lap Winding Machine Operator Relationship Specialty Start Date End Date Pascual Dayl MD [address] [place] [address] PCP - General Internal Medicine 02/22/14 Fani Heck, PharmD [address] [place] [address] Pharmacist Internal Medicine 12/16/22 08/15/24 Dasia Waters, KristiD [address] [place] [address] Pharmacist Internal Medicine 08/16/24 documented as of this encounter
--- OUTSIDE RECORDS SUMMARY | 2024-08-17 10:49 | XMS_ITS | Encounter Summary ---
Author Organization [employer] Address [address] [facility] 7t [place] [address] Care Team Providers Care Cable Television Line Technician Name Role Phone Pascual Daly MD Primary Care Provide r Fani Heck PharmD Unavailable [phone] Dasia Waters PharmD Unavailable [phone] Reason for Visit * Reason Onset Date Comments Appointment Request 09/03/2022 Encounter Details Date Type Department Care Team (Late st Contact Info) Description 09/03/2022 Telephone [facility] MEDICINE [address] [place], [place] [phone] Pascual Daly MD [address] [place], [place] [phone] Appointment Request Social History Tobacco Use Types [...] Description 09/15/2024 10:00 AM EDT Medication Management [facility] [address] [place] [address] 09/16/2024 9:30 AM EDT Office Visit [facility] ADULT DENTAL [address] [place] [address] Christian Winchester DDS [address] [place] [address] 10/28/2024 10:30 AM EDT Clinical Support [facility] MED & PEDS [address] [place] [address] Amanda Fernández, RN [address] [place] [address] 11/16/2024 11:15 AM EDT Office Visit [facility] [address] [place] [address] Pascual Daly MD [address] [place] [address] 02/17/2025 10:00 AM EDT Office Visit [facility] ADULT DENTAL [address] [place] [address] Gabriela Gaitan [address] [place] [address] documented as of this encounter Goals Goal Patient Goal Type Associated Problems Recent Progress Patient-Stated? Author Blood Pressure < 140/90 Blood Pressure 142/72( 025 12:49 PM EDT) No Fani Heck, PharmD documented as of this encounter Visit Diagnoses Not on filedocumented in this encounter Additional Health Concerns Assessment Noted Time PHQ-9 Depression Total Score: 8 07/05/19 23 9:26 AM EDT documented as of this encounter Care Teams Cable Television Line Technician Relationship Specialty Start Date End Date Pascual Daly MD [address] [place] [address] PCP - General Internal Medicine 02/22/14 Fani Heck PharmD [address] [place] [address] Pharmacist Internal Medicine 12/16/22 08/15/24 Dasia Waters PharmD [address] [place] [address] Pharmacist Internal Medicine 08/16/24 documented as of this encounter
--- OUTSIDE RECORDS SUMMARY | 2024-08-17 10:49 | XMS_ITS | Data Portability ---
Author Organization [employer] Address [address] [place] [address] Care Team Providers Care Production Proofreader Name Role Phone [facility] Referring Provider [phone] Assessment Encounter Date Assessment Date Assessment LastModified by Organization Details LastModified Time 04/11/2023 04/11/2023 I provided real -time medical direction via phone for this encounter, and was available for additional phone based assistance as needed. I have reviewed and agree with the Assessment and Plan as documented by the Classification Case Manager. Patient given the opportunity to ask questions. Advised to call for another visit over the weekend if not improving in 2 to 3 days however if develops CP/severe SOB/turning blue/uncontrolle d n/v/d or black/bloody emesis or stool/ AMS/ syncope/ hi fever unresponsive to APAP to call 911- verbalized understanding of instructions [email or web address] Not available 04/12/2023 10:53:05 Plan of Treatment [...] Not available Not available Not available 04/11/2023 [id number] RxNorm Anitha Camacho MD [address] [facility],[address], [place], [address] [facility] [employer] 3 14:49:47 4127 Celebrex medicatio n Not available Not available Not available 04/11/2023 [id number] 7 RxNoalex Camacho MD [address] [facility],[address], [place], [address], [employer] 14:49:57 4128 tramadol medicatio n Not available Not available Not available 04/11/2023 [id number] RxGeovanny Camacho MD [address] [facility],[address], [place], [address], [employer] 14:50:04 Medications Name Sig Start Date [...] Available Not Available No t Available [employer] Gibson Lite kit USE DIRECTED active Not Available [...] Updated DateTime 3 97 % 97 % 37626.5 36 g 18 /min 97.8 [degF] 88 /min 167 mm[Hg] 84 mm[Hg] Not Available InstRevalesioNoLat49 - production 3 14:49:26 Social History None recorded. Functional Status None recorded. Mental Status None recorded. Family History Nothing Reported. Medical History No medical history recorded. Gynecological HistoryNo gynecological history recorded. Obstetrics History GPAL:G 0 P 0 0 0 0 Past Encounters Encounter ID Performer Location Encounter Start Date Encounter Closed Date Diagnosis/Indication Diagnosis SNOMED-CT Code Diagnosis ICD10 Code Diagnosis Note [id number] Anitha Camacho MD [facility] - [facility] [address] [place] [address] 04/11/2023 14:49:23 04/12/2023 10:53:58 Respiratory syncytial virus infection 85302051 B97.4 Continue medication s as prescribed ., [...] Patten Member ID Guarantor Name 04/11/2023 1 [facility] - DOS ON OR AFTER 2022 - DUAL ELIGIBLE - [facility] AND ONE [facility] (MEDICARE REPLACEMENT/ADV ANTAGE - HMO) Brandie Santana [id number] Brandie Ryanyes Notes Date Note Type Note Provider Name and Address Organization Details Recorded Time 04/11/2023 text/html HPI: 73 year old, Turkmen speaking member, F, with hx of DM, HTN, Asthma, Depression, hx of falls and chronic pain, reporting worsesing Productive cough, shortness of breath with activities and fatigue, worsening head aches, treated at [facility] on 04/10/23 and dx with RSV. Reported has fever and chills, believes her BP is high. Her INTERVENTIONAL RADIOLOGY TECH worker is with her and member asked [...] .................. .................. .................. .................. .................. .................. ............... Classification Case Manager Note From Teddy Miranda: Pt sts dis not call for [employer]. [facility] set up appt. Pt was in ER yesterday diagnosed with RSV treated RX for ventalin and prednisone. Pt denies cp sob fever nausea diarrhea. Baseline vitals assessed. Lungs clear. No edema. [facility] contacted ..pt declined benzonatate. Pt advised self care and continue with RX meds. Pt education on signs indicating the ER. Classification Case Manager Allergies: Lorazepam .................. .................. .................. .................. .................. .................. .................. ............... Disposition: Fulfilled Comments: Reviewed - Johana RNSEGMD: Patient seen yesterday evening [facility]. COvid negative per patient/ RSV +/She is using her albuterol every 4 hours. She is on prednisone. No nausea vomiting.Pat has hx that includes but not limited to: DM2/COPD/HTN/Fe deficiency anemia/hypothyroid ism/MDD with psychotic features/obesity status post laparoscopic gastrectomy/positi ve SUSAN/fibromyalgia. Anitha Camacho MD [address] [facility],[address], [place], [address], [place] 04/12/2023 10:53:56 OBGyn Episode No OBEpisode recorded.
--- OUTSIDE RECORDS SUMMARY | 2024-08-17 10:49 | XMS_ITS | Encounter Summary ---
Author Organization [employer] Address [address] [facility] 7t [place] [address] Care Team Providers Care And Drying Supervisor Cooking Casing Name Role Phone Pascual Daly MD Primary Care Provide r Dasia Waters PharmD Unavailable [phone] Encounter Details Date Type Department Care Team ([facility] st Contact Info) Description 08/16/2024 Orders Only GENERIC EXTERNAL DATA DEPARTMENT Provider, [...] Description 09/15/2024 10:00 AM EDT Medication Management [facility] [address] [place] [address] 09/16/2024 9:30 AM EDT Office Visit [facility] ADULT DENTAL [address] [place] [address] Christian Winchester DDS [address] [place] [address] 10/28/2024 10:30 AM EDT Clinical Support [facility] MED & PEDS [address] [place] [address] Amanda Fernández, RN [address] [place] [address] 11/16/2024 11:15 AM EDT Office Visit [facility] [address] [place] [address] Pascual Daly MD [address] [place] [address] 02/17/2025 10:00 AM EDT Office Visit [facility] ADULT DENTAL [address] [place] [address] Gabriela Gaitan [address] [place] [address] documented as of this encounter Goals Goal Patient Goal Type Associated Problems Recent Progress Patient-Stated? Author Blood Pressure < 140/90 Blood Pressure 142/72( 025 12:49 PM EDT) No Fani Heck, KristiD documented as of this encounter Procedures Procedure Name Priority Date/Time Associated Diagnosis Comments TSH Routine 08/16/2024 9:24 AM EDT T4, FREE Routine 08/16/2024 9:24 AM EDT PTH, INTACT WITHOUT CALCIUM Routine 08/16/2024 9:24 AM EDT documented in this encounter Results * (ABNORMAL) TSH (08/16/2024 9:24 AM EDT) Thyroid Stimulating Hormone 21.47(H) 0.32 - 4.0 uIU/mL [facility] Comment:Note: A sustained TS H level above 2.5 uIU/mL may warrant further investigation. TSH 3rd Generation ([facility]) 08/16/2024 9:24 AM EDT 08/16/2024 10:57 AM EDT us Generic External Data Provider LAB BLOOD ORDERAB LES Final Result Performing Organization Address City/[facility]/ZIP Co de Phone Number [facility] [address] [place] [phone] * (ABNORMAL) PTH, Intact Without Calcium (08/16/2024 9:24 AM EDT) Parathyroid Hormone, Intact 187.5(H) 8.7 - 77.1 pg/mL [facility] 08/16/2024 9:24 AM EDT 08/16/2024 10:57 AM EDT us Generic External Data Provider LAB BLOOD ORDERAB LES Final Result Performing Organization Address City/[facility]/ZIP Co de Phone Number [facility] [address] [place] [phone] * (ABNORMAL) T4, Free (08/16/2024 9:24 AM EDT) Free T4 (Free Thyroxine) 0.60(L) 0.71 - 1.85 ng/dL [facility] 08/16/2024 9:24 AM EDT 08/16/2024 10:57 AM EDT us Generic External Data Provider LAB BLOOD ORDERAB LES Final Result [facility] [address] [place] [address] [phone] documented in this encounter Visit Diagnoses Not on filedocumented in this encounter Additional Health Concerns Assessment Noted Time PHQ-9 Depression Total Score: 9 01/29/20 24 11:00 AM EDT documented as of this encounter Care Teams And Drying Supervisor Cooking Casing Relationship Specialty Start Date End Date Pascual Daly MD [address] [place] [address] PCP - General Internal Medicine 02/22/14 Dasia Waters PharmD [address] [place] [address] Pharmacist Internal Medicine 08/16/24 documented as of this encounter
--- OUTSIDE RECORDS SUMMARY | 2024-08-17 10:49 | XMS_ITS | Encounter Summary ---
Author Organization [employer] Address [address] [facility] [address] 7[address] [place] [address] Care Team Providers Care Blanket Maker Name Role Phone Pascual Daly MD Primary Care Provide r Fani Heck PharmD Unavailable [phone] Dasia Waters PharmD Unavailable [phone] Encounter Details Date Type Department Care Team (Late st Contact Info) Description 03/05/2024 Refill [facility] MEDICINE [address] [place] [address] Jefry Chun Benign hypertension; Type 2 diabetes mellitus without complication, with long-term current use of insulin ([facility]) Social History Tobacco Use Types [...] Description 09/15/2024 10:00 AM EDT Medication Management [facility] MEDICINE [address] [place] [address] 09/16/2024 9:30 AM EDT Office Visit [facility] ADULT DENTAL [address] [place] [address] Christian Winchester DDS [address] [place] [address] 10/28/2024 10:30 AM EDT Clinical Support [facility] MED & PEDS [address] [place] [address] Amanda Fernández, AALIYAH [address] [place] [address] 11/16/2024 11:15 AM EDT Office Visit [facility] MEDICINE [address] [place] [address] Pascual Daly MD [address] [place] [address] 02/17/2025 10:00 AM EDT Office Visit [facility] ADULT DENTAL [address] [place] [address] Gabriela Gaitan [address] [place] [address] documented as of this encounter Goals Goal Patient Goal Type Associated Problems Recent Progress Patient-Stated? Author Blood Pressure < 140/90 Blood Pressure 142/72( 025 12:49 PM EDT) No Fani Heck, PharmD documented as of this encounter Visit Diagnoses Diagnosis Benign hypertension Essential hypertension, benign Type 2 diabetes mellitus without complication, with long-term current use of insulin ([facility]) documented in this encounter Additional Health Concerns Assessment Noted Time PHQ-9 Depression Total Score: 9 01/29/20 24 11:00 AM EDT documented as of this encounter Care Teams Blanket Maker Relationship Specialty Start Date End Date Pascual Daly MD [address] [place] [address] PCP - General Internal Medicine 02/22/14 Fani Heck, PharmD [address] [place] [address] Pharmacist Internal Medicine 12/16/22 08/15/24 Dasia Waters, KristiD [address] [place] [address] Pharmacist Internal Medicine 08/16/24 documented as of this encounter
--- OUTSIDE RECORDS SUMMARY | 2024-08-17 10:49 | XMS_ITS | Encounter Summary ---
Author Organization [employer] Address [address] [place] [address] 7t [place] [address] Care Team Providers Care Temporary Office Assistant Name Role Phone Pascual Daly MD Primary Care Provide r Fani Heck PharmD Unavailable + Dasia Waters PharmD Unavailable [phone] Reason for Visit * Reason Comments Med Refill Encounter Details Date Type Department Care Team (Late st Contact Info) Description 10/02/2022 Refill [facility] [address] [place] [address] Titi Gray FNP Major depressive disorder with [...] Department Care Team (Late Contact Info) Description 09/15/2024 10:00 AM EDT Medication Management [facility] [address] [place] [address] 09/16/2024 9:30 AM EDT Office Visit [facility] ADULT DENTAL [address] [place] [address] Christian Winchester DDS [address] [place] [address] 10/28/2024 10:30 AM EDT Clinical Support [facility]S 505 [place] [address] Amanda Fernández, RN 505 [place] [address] 11/16/2024 11:15 AM EDT Office Visit [facility] [address] [place] [address] Pascual Daly MD 230 [place] [address] 02/17/2025 10:00 AM EDT Office Visit [facility] AD[facility] [address] [place] [address] Gabriela Gaitan [address] [place] [address] documented as of this encounter Goals Goal [...] documented as of this encounter Care Teams Temporary Office Assistant Relationship Specialty Start Date End Date Pascual Daly MD [address] [place] [address] PCP - General Internal Medicine 02/22/14 Fani Heck, PharmD [address] [place] [address] Pharmacist Internal Medicine 12/16/22 08/15/24 Dasia Waters, KristiD [address] [place] [address] Pharmacist Internal Medicine 08/16/24 documented as of this encounter
--- OUTSIDE RECORDS SUMMARY | 2024-08-17 10:49 | XMS_ITS | Clinical Summary ---
Author Organization [address] [facility] Address 175 [place] [address] Phone Care Team Providers Care Associate Professor Of Counseling Name Role Phone Pascual Darnell MD Primary [...] Upcoming Encounters Date Type Department Care Team ([facility] Contact Info) Description 09/02/2024 10:30 AM EDT Consult Orthopedic Surgery [place] [phone] [phone] Luciano Smith, DPM [address] [address] Health Maintenance Due Date Last Done Comments [...] Group ID:[id number] Type:Not on file Address: AMIE [facility] [place] [address] Care Teams Associate Professor Of Counseling Relationship Specialty Start Date End Date Pascual Darnell MD [address] [place] [phone] PCP - General Internal Medicine 06/18/24
--- OUTSIDE RECORDS SUMMARY | 2024-08-17 10:49 | XMS_ITS | Encounter Summary ---
Author Organization [employer] Address 75 [facility] 7t [place] [address] Care Team Providers Care Patient Services Rep Name Role Phone Pascual Daly MD Primary Care Provide r Fani Heck PharmD Unavailable +2 Dasia Waters PharmD Unavailable [phone] Encounter Details Date Type Department Care Team (Late st Contact Info) Description 08/29/2022 Abstract [facility] MEDICINE [address] [place] [address] Pascual Daly MD 230 [place], [place] [phone] Social History Tobacco Use Types Packs/Day Years [...] Description 09/15/2024 10:00 AM EDT Medication Management [facility] [address] [place] [address] 09/16/2024 9:30 AM EDT Office Visit [facility] ADULT DENTAL [address] [place] [address] Christian Winchester DDS [address] [place] [address] 10/28/2024 10:30 AM EDT Clinical Support [facility] P[facility]S [address] [place] [address] Amanda Fernández, AALIYAH [address] [place] [address] 11/16/2024 11:15 AM EDT Office Visit [facility] MEDICINE [address] [place] [address] Pascual Daly MD [address] [place] [address] 02/17/2025 10:00 AM EDT Office Visit [facility] ADULT DENTAL [address] [place] [address] Gabriela Gaitan [address] [place] [address] documented as of this encounter Goals Goal [...] documented as of this encounter Care Teams Patient Services Rep Relationship Specialty Start Date End Date Pascual Daly MD 230 [place] [address] PCP - General Internal Medicine 02/22/14 Fani Heck, KristiD [address] [place] [address] Pharmacist Internal Medicine 12/16/22 08/15/24 Dasia Waters, KristiD [address] [place] [address] Pharmacist Internal Medicine 08/16/24 documented as of this encounter
--- OUTSIDE RECORDS SUMMARY | 2024-08-17 10:49 | XMS_ITS | Encounter Summary ---
Author Organization [employer] Address 75 [facility] 7t [place] [address] Care Team Providers Care Water Taxi Captain Name Role Phone Pascual Daly MD Primary Care Provide r Fani Heck PharmD Unavailable [phone] Dasia Waters PharmD Unavailable [phone] Encounter Details Date Type Department Care Team (Late st Contact Info) Description 09/25/2023 Telephone [facility] MEDICINE [address] [place], [place] [phone] Pascual Daly MD 230 [place], [place] [phone] Social History Tobacco Use Types Packs/Day Years [...] Description 09/15/2024 10:00 AM EDT Medication Management [facility] MED[facility]INE [address] [place] [address] 09/16/2024 9:30 AM EDT Office Visit [facility] ADULT DENTAL [address] [place] [address] Christian Winchester DDS [address] [place] [address] 10/28/2024 10:30 AM EDT Clinical Support [facility] MED & PEDS 505 [place] [address] Amanda Fernández, AALIYAH 505 [place] [address] 11/16/2024 11:15 AM EDT Office Visit [facility] MEDICINE [address] [place] [address] Pascual Daly MD [address] [place] [address] 02/17/2025 10:00 AM EDT Office Visit [facility] ADULT DENTAL [address] [place] [address] Gabriela Gaitan 230 [place] [address] documented as of this encounter Goals Goal Patient Goal Type Associated Problems Recent Progress Patient-Stated? Author Blood Pressure < 140/90 Blood Pressure 142/72( 025 12:49 PM EDT) No Fani Heck, PharmD documented as of this encounter Visit Diagnoses Diagnosis Type 2 diabetes mellitus without complication, with long-term current use of insulin ([facility]) documented in this encounter Additional Health Concerns Assessment Noted Time PHQ-9 Depression Total Score: 11 024 10:24 AM EST documented as of this encounter Care Teams Water Taxi Captain Relationship Specialty Start Date End Date Pascual Daly MD [address] [place] [address] PCP - General Internal Medicine 02/22/14 Fani Heck, PharmD [address] [place] [address] Pharmacist Internal Medicine 12/16/22 08/15/24 Dasia Waters PharmD [address] [place] [phone] Pharmacist Internal Medicine 08/16/24 documented as of this encounter
--- OUTSIDE RECORDS SUMMARY | 2024-08-17 10:49 | XMS_ITS | Encounter Summary ---
Author Organization [employer] Address 75 [facility] 7t [place] [address] Care Team Providers Care Fluid Dynamicist Name Role Phone Pascual Daly MD Primary Care Provide r Dasia Waters PharmD Unavailable Encounter Details Date Type Department Care Team (Latest Contact Info) Description 08/16/2024 Travel Social History Tobacco Use Types Packs/Day [...] housing situation today? I have sarahyradha pantoja 08/12/[address] you [...] Description 09/15/2024 10:00 AM EDT Medication Management [facility] [address] [place] [address] 09/16/2024 9:30 AM EDT Office Visit [facility] [address] [place] [address] Christian Winchester DDS [address] [place] [address] 10/28/2024 10:30 AM EDT Clinical Support [facility] [address] [place] [address] Amanda Fernández, RN 505 [place] [address] 11/16/2024 11:15 AM EDT Office Visit [facility] [address] [place] [address] Pascual Daly MD [address] [place] [address] 02/17/2025 10:00 AM EDT Office Visit [facility] 230 [place] [address] Gabriela Gaitan 230 [place] [address] documented as of this encounter Goals Goal [...] documented as of this encounter Care Teams Fluid Dynamicist Relationship Specialty Start Date End Date Pascual Daly MD 230 [place] [address] PCP - General Internal Medicine 02/22/14 Dasia Waters PharmD 230 [place] [address] Pharmacist Internal Medicine 08/16/24 documented as of this encounter
--- OUTSIDE RECORDS SUMMARY | 2024-08-17 10:49 | XMS_ITS | Encounter Summary ---
Author Organization [employer] Address 75 [facility] 7t [place] [address] Care Team Providers Care Drill Press Operator Numerical Control Name Role Phone Pascual Daly MD Primary Care Provide r Fani Heck PharmD Unavailable [phone] Reason for Visit * Reason Comments Diabetes Hypertension Pt has an appt next week to get an ECHO done and also for a Holter Monitor Encounter Details Date Type Department Care Team (Latest Contact Info) Description 08/12/2024 10:15 AM EDT Office Visit [facility] MED[facility]INE [address] [place], [place] [phone] Pascual Daly MD [address] [place], [place] [phone] Type 2 diabetes mellitus with right eye affected by mild nonproliferative retinopathy without macular edema, with long-term current use of insulin ([facility]) (Primary Dx); Type 2 diabetes mellitus without complication, with long-term current use of insulin ([facility]); Mixed hyperlipidemia; Primary hypertension; Gastroesophageal reflux disease without esophagitis; Coronary artery disease involving menominee coronary artery of menominee heart without angina pectoris Social History Tobacco [...] edema, with long-term current use of insulin ([facility]) - Primary Pt here for a f/u [...] from 8.9 Eye exam done on: 12/2023 [facility] Dx with new [...] last seen 08/11/2024 Coronary artery disease involving menominee coronary artery of menominee heart without angina pectoris Under the care [...] EDT Associated Problem(s): Coronary artery disease involving menominee coronary artery of menominee heart without angina pectoris Under the care [...] edema, with long-term current use of insulin ([facility]) Pt here for a f/u She is under the care of Endocrinology office Vashti Glass COMPACTING MACHINE OPERATOR/TENDER, last seen 03/17/2024 and follows with RN as well, last seen 04/2024 She is on: Tresiba 18 units Fiasp 100-151 unit 151-200 4 units 201-250 5 units 250-300 6 year Over 300 70 units She has a VNA at home. Hgb A1c 08/12/2024: 7.8 from 8.9 Eye exam done on: 12/2023 [facility] Dx with new [...] 10:00 AM EDT Medication Management [facility] MED[facility]INE [address] [place] [address] 09/16/2024 9:30 AM EDT Office Visit [facility] ADULT DENTAL [address] [place] [address] Christian Winchester DDS [address] [place] [address] 10/28/2024 10:30 AM EDT Clinical Support [facility] MED & PEDS [address] [place], [place] [phone] Amanda Fernández, AALIYAH [address] [place], [place] 11/16/2024 11:15 AM EDT Office Visit [facility] MED[facility]INE [address] [place] [address] Pascual Daly MD [address] [place] [address] 02/17/2025 10:00 AM EDT Office Visit [facility] ADULT DENTAL [address] [place] [address] Kandy Gabriela [address] [place] [address] documented as of this encounter Goals Goal Patient Goal Type Associated Problems Recent Progress Patient-Stated? Author Blood Pressure < 140/90 Blood Pressure 142/72( 025 12:49 PM EDT) No Fani Heck, KristiD documented as of this encounter Procedures Procedure Name Priority Date/Time Associated Diagnosis Comments CBC WITH AUTO DIFFERENTIAL Routine 08/16/2024 9:24 AM EDT Coronary artery disease involving menominee coronary artery of menominee heart without angina pectoris HEPATIC FUNCTION PANEL Routine 08/16/2024 9:24 AM EDT Mixed hyperlipidemia Coronary artery disease involving menominee coronary artery of menominee heart without angina pectoris LIPID PANEL, STANDARD Routine 08/16/2024 9:24 AM EDT Mixed hyperlipidemia BASIC METABOLIC PANEL Routine 08/16/2024 9:24 AM EDT Primary hypertension POCT GLYCATED HEMOGLOBIN, TOTAL Routine 08/12/2024 10:16 AM EDT Type 2 diabetes mellitus without complication, with long-term current use of insulin ([facility]) POCT GLUCOSE Routine 08/12/2024 10:11 AM EDT Type 2 diabetes mellitus without complication, with long-term current use of insulin ([facility]) documented in this encounter Results * (ABNORMAL) CBC auto differential (08/16/2024 9:24 AM EDT) White Blood Count 8.7 4.8 - 10.8 X10*3/uL [facility] Red Blood Count 3.95(L) 4.20 - 5.50 X10*6/uL [facility] Hemoglobin 11.3(L) 12.0 - 16.0 g/dl [facility] Hematocrit 36.0(L) 37.0 - 47.0 % [facility] Mean Corpuscular Volume 91.1 80.0 - 98.0 fL [facility] Mean Corpuscular Hemoglobin 28.6 27.0 - 33.0 pg [facility] Mean Corpuscular HGB Conc 31.4 31.0 - 35.0 g/dl [facility] Red Cell Distribution Width 14.6 11.0 - 16.0 % [facility] Platelet Count 186 160 - 400 X10*3/uL [facility] Mean Platelet Volume 11.1 9.4 - 12.3 fL [facility] Neutrophils Percent Auto 42.9(L) 45 - 73 % [facility] Imm Gran Pct Auto 0.6(H) 0.0 - 0.4 % [facility] Lymphocytes Percent Auto 33.8 20 - 40 % [facility] Monocytes Percent Auto 6.5 2 - 11 % [facility] Eosinophils Percent Auto 14.8(H) 0 - 4 % [facility] Basophils Percent Auto 1.4 0 - 2 % [facility] NRBC Pct Auto 0.0 0.0 - 0.2 /100WBC [facility] Neutrophils Absolute Auto 3.8 2.0 - 8.3 x10*3/uL [facility] Imm Gran Abs Auto 0.05(H) 0.00 - 0.03 X10*3/uL [facility] Lymphocytes Absolute Auto 3.0 1.2 - 4.9 X10*3/uL [facility] Monocytes Absolute Auto 0.6 0.1 - 1.2 X10*3/uL [facility] Eosinophils Absolute Auto 1.3(H) 0.0 - 0.4 X10*3/uL [facility] Basophils Absolute Auto 0.1 0.0 - 0.2 X10*3/uL [facility] NRBC Abs Auto 0.000 0.0 - 0.012 X10*3/uL [facility] Blood Venous blood specimen / Unknown 08/16/2024 9:24 AM EDT 08/16/2024 10:57 AM EDT Pascual Terry MD LAB BLOOD ORDERABLES Final Result Performing Organization Address [facility]/ZIP Co de Phone Number [facility] [address] [place] [phone] * (ABNORMAL) Hepatic Function Panel (08/16/2024 9:24 AM EDT) Bilirubin, Total 0.3 0.0 - 1.0 mg/dL [facility] Bilirubin, Direct 0.2 0.0 - 0.5 mg/dL [facility] Aspartate Amino Transferase 39(H) 5 - 31 U/L [facility] Alanine Aminotransferase 49(H) 0 - 31 U/L [facility] Total Protein 6.3(L) 6.5 - 8.0 g/dL [facility] Albumin Level 4.0 3.5 - 5.0 g/dL [facility] Alkaline Phosphatase 77 39 - 117 U/L [facility] Blood Venous blood specimen / Unknown 08/16/2024 9:24 AM EDT 08/16/2024 10:57 AM EDT Pascual Terry MD LAB BLOOD ORDERABLES Final Result Performing Organization Address [facility]/ZIP Co de Phone Number [facility] [address] [place] [phone] * (ABNORMAL) Basic Metabolic Panel (08/16/2024 9:24 AM EDT) Sodium 140 135 - 145 mmol/L [facility] Potassium 5.0 3.3 - 5.1 mmol/L [facility] Chloride 104 96 - 108 mmol/L [facility] Carbon Dioxide 30(H) 22 - 29 mmol/L [facility] Anion Gap 11(L) 12 - 20 [facility] Urea Nitrogen (BUN) 17(H) 9 - 16 mg/dL [facility] Creatinine, Serum 1.09 0.5 - 1.4 mg/dL [facility] Estimated Glomerular Filt Rate 49 [facility] Comment:Chronic Kidney Disea se: Estimated GFR < 60 mL/min/[id number] Kidney Disease: Estimated GFR < 15 mL/min/1.73m2 Glucose 188(H) 60 - 115 mg/dL [facility] Calcium 8.7 8.4 - 10.2 mg/dL [facility] Blood Venous blood specimen / Unknown 08/16/2024 9:24 AM EDT 08/16/2024 10:57 AM EDT Pascual Terry MD LAB BLOOD ORDERABLES Final Result [facility] [address] [place] [phone] * Lipid Panel, Standard (08/16/2024 9:24 AM EDT) Triglycerides 100 <150 mg/dL [facility] Comment:Desirable Triglyceri de: less than 150 mg/dLBorderline High Triglyceride 150-199 mg/dLHigh Triglyceride: 200-499 mg/dLVery High Triglyceride: greater than or equal to 5OO mg/dL Cholesterol 145 <200 mg/dL [facility] Comment:Desirable Cholestero l: less than 200 mg/dLBorderline High Cholesterol: 200-239 mg/dLHigh Cholesterol: greater than 239 mg/dL LDL Cholesterol Calculated 60 <100 mg/dL [facility] Comment:Desirable LDL: less than 100 mg/dLNear Optimal/Above Optimal LDL: 110- 129 mg/dLBorderline High LDL: 130-159 mg/dLHigh LDL: 160-189 mg/dLVery High LDL: greater than or equal to 190 mg/dL HDL Cholesterol 65 >40 mg/dL [facility] Comment:Desirable HDL: great er than 40 mg/dL Note: This HDL assay may give artificially low results in patients with liver disease. Blood Venous blood specimen / Unknown 08/16/2024 9:24 AM EDT 08/16/2024 10:57 AM EDT us Pascual Terry MD LAB BLOOD ORDERABLES Final Result [facility] [address] [place] [phone] * (ABNORMAL) POCT HGB A1C (08/12/2024 10:16 AM EDT) Hemoglobin A1C 7.8(A) 4.0 - 6.0 % QC Media Lot # [id number] Lot# Expiration Date Blood 08/12/2024 10:1 6 AM EDT us [...] edema, with long-term current use of insulin ([facility])- Primary Type 2 diabetes mellitus without complication, with long-term current use of insulin ([facility]) Mixed hyperlipidemia Primary hypertension Unspecified essential hypertension Gastroesophageal reflux disease without esophagitis Esophageal reflux Coronary artery disease involving menominee coronary artery of menominee heart without angina pectoris documented in this encounter Additional Health Concerns Assessment Noted Time PHQ-9 Depression Total Score: 9 01/29/20 24 11:00 AM EDT documented as of this encounter Care Teams Drill Press Operator Numerical Control Relationship Specialty Start Date End Date Pascual Daly MD [address] [place] [address] PCP - General Internal Medicine 02/22/14 Fani Heck PharmD [address] [place] [address] Pharmacist Internal Medicine 12/16/22 08/15/24 documented as of this encounter
--- OUTSIDE RECORDS SUMMARY | 2024-08-17 10:49 | XMS_ITS | Encounter Summary ---
Author Organization [employer] Address 75 [facility] 7t [place] [address] Care Team Providers Care Camp Manager Name Role Phone Pascual Daly MD Primary Care Provide r Fani Heck PharmD Unavailable + Dasia Waters PharmD Unavailable [phone] Reason for Visit * Reason Comments Med Refill Encounter Details Date Type Department Care Team (Late st Contact Info) Description 01/14/2024 Refill [facility]S [address] [place] [address] Pascual Daly MD [address] [place], [place] [phone] Fibromyalgia Social History Tobacco Use Types Packs/Day [...] Description 09/15/2024 10:00 AM EDT Medication Management [facility] MED[facility]INE [address] [place] [address] 09/16/2024 9:30 AM EDT Office Visit [facility] ADULT DENTAL [address] [place] [address] Christian Winchester DDS [address] [place] [address] 10/28/2024 10:30 AM EDT Clinical Support [facility] [address] [place] [address] Amanda Fernández, AALIYAH [address] [place] [address] 11/16/2024 11:15 AM EDT Office Visit [facility] MEDICINE [address] [place] [address] Pascual Daly MD [address] [place] [address] 02/17/2025 10:00 AM EDT Office Visit [facility] ADULT DENTAL [address] [place] [phone] Gabriela Gaitan [address] [place] [address] documented as of this encounter Goals Goal [...] documented as of this encounter Care Teams Camp Manager Relationship Specialty Start Date End Date Pascual Daly MD [address] [place] [address] PCP - General Internal Medicine 02/22/14 Fani Heck, PharmD [address] [place] [address] Pharmacist Internal Medicine 12/16/22 08/15/24 Dasia Waters PharmD [address] [place] [address] Pharmacist Internal Medicine 08/16/24 documented as of this encounter
--- OUTSIDE RECORDS SUMMARY | 2024-08-17 10:49 | XMS_ITS | Encounter Summary ---
Author Organization [employer] Address 75 [facility] 7t [place] [address] Care Team Providers Care Director Of Spa And Guest Experience Name Role Phone Pascual Daly MD Primary Care Provide r Fani Heck PharmD Unavailable +5 Dasia Waters PharmD Unavailable [phone] Reason for Visit * Reason Comments Med Refill Encounter Details Date Type Department Care Team (Late st Contact Info) Description 08/26/2023 Refill [facility] 230 [place], [place] [phone] Momo Rizo MD 230 [place], [place] [phone] Benign hypertension Social History Tobacco Use Types [...] Description 09/15/2024 10:00 AM EDT Medication Management [facility] MEDICINE [address] [place] [address] 09/16/2024 9:30 AM EDT Office Visit [facility] ADULT DENTAL [address] [place] [address] Christian Winchester DDS [address] [place] [address] 10/28/2024 10:30 AM EDT Clinical Support [facility] MED & PEDS 505 [place] [address] Amanda Fernández, AALIYAH 505 [place] [address] 11/16/2024 11:15 AM EDT Office Visit [facility] MEDICINE [address] [place] [address] Pascual Daly MD [address] [place] [address] 02/17/2025 10:00 AM EDT Office Visit [facility] ADULT DENTAL [address] [place] [address] Gabriela Gaitan 230 [place] [address] documented as of this encounter Goals Goal [...] of this encounter Care Teams Director Of Spa And Guest Experience Relationship Specialty Start Date End Date Pascual Daly MD 230 [place] [address] PCP - General Internal Medicine 02/22/14 Fani Heck, PharmD [address] [place] [address]76 Pharmacist Internal Medicine 12/16/22 08/15/24 Dasia Waters, KristiD [address] [place] [address]69 Pharmacist Internal Medicine 08/16/24 documented as of this encounter
--- OUTSIDE RECORDS SUMMARY | 2024-08-17 10:49 | XMS_ITS | Encounter Summary ---
Author Organization [employer] Address 75 [facility] 7t [place] [address] Care Team Providers Care Acid Condenser Name Role Phone Pascual Daly MD Primary Care Provide r Fani Heck PharmD Unavailable +5 Dasia Waters PharmD Unavailable [phone] Reason for Visit * Reason Comments Med Refill Encounter Details Date Type Department Care Team (Late st Contact Info) Description 07/20/2023 Refill [facility] MEDICINE 230 [place] [address] Titi Gray FNP Major depressive disorder with [...] Description 09/15/2024 10:00 AM EDT Medication Management [facility] MEDICINE [address] [place] [address] 09/16/2024 9:30 AM EDT Office Visit [facility] ADULT DENTAL 230 [place] [address] Christian Winchester DDS [address] [place] [address] 10/28/2024 10:30 AM EDT Clinical Support [facility] CHC MED & PEDS 505 [place] [address] Amanda Fernández, AALIYAH 505 [place] [address] 11/16/2024 11:15 AM EDT Office Visit [facility] MEDICINE [address] [place] [address] Pascual Daly MD [address] [place] [address] 02/17/2025 10:00 AM EDT Office Visit [facility] ADULT DENTAL [address] [place] [address] Gabriela Gaitan 230 [place] [address] documented as of this encounter Goals Goal [...] documented as of this encounter Care Teams Acid Condenser Relationship Specialty Start Date End Date Pascual Daly MD 230 [place] [address] PCP - General Internal Medicine 02/22/14 Fani Heck, KristiD [address] [place] [address] Pharmacist Internal Medicine 12/16/22 08/15/24 Dasia Waters PharmD 230 [place] [address] Pharmacist Internal Medicine 08/16/24 documented as of this encounter
--- OUTSIDE RECORDS SUMMARY | 2024-08-17 10:49 | XMS_ITS | Encounter Summary ---
Author Organization [employer] Address 75 [facility] 7t [place] [address] Care Team Providers Care Five Roll Refiner Batch Mixer Name Role Phone Pascual Daly MD Primary Care Provide r Fani Heck PharmD Unavailable +1 Dasia Waters PharmD Unavailable [phone] Encounter Details Date Type Department Care Team (Late st Contact Info) Description 09/25/2023 Telephone [facility] MEDICINE 230 [place], [place] [phone] Pascual Daly MD 230 [place], [place] [phone] Social History Tobacco Use Types Packs/Day Years [...] Description 09/15/2024 10:00 AM EDT Medication Management [facility] MEDICINE [address] [place] [address] 09/16/2024 9:30 AM EDT Office Visit [facility] ADULT DENTAL 230 [place] [address] Christian Winchester DDS [address] [place] [address] 10/28/2024 10:30 AM EDT Clinical Support [facility] CHC MED & PEDS 505 [place] [address] Amanda Fernández, AALIYAH 505 [place] [address] 11/16/2024 11:15 AM EDT Office Visit [facility] MEDICINE [address] [place] [address] Pascual Daly MD [address] [place] [address] 02/17/2025 10:00 AM EDT Office Visit [facility] ADULT DENTAL [address] [place] [address] Gabriela Gaitan 230 [place] [address] documented as of this encounter Goals Goal [...] documented as of this encounter Care Teams Five Roll Refiner Batch Mixer Relationship Specialty Start Date End Date Pascual Daly MD 230 [place] [address] PCP - General Internal Medicine 02/22/14 Fani Heck, PharmD 230 [place] [address] Pharmacist Internal Medicine 12/16/22 08/15/24 Dasia Waters, KristiD 230 [place] [address] Pharmacist Internal Medicine 08/16/24 documented as of this encounter
--- OUTSIDE RECORDS SUMMARY | 2024-08-17 10:49 | XMS_ITS | Encounter Summary ---
Author Organization [employer] Address 75 [facility] 7t [place] [address] Care Team Providers Care Shovel Operator Name Role Phone Pascual Daly MD Primary Care Provide r Fani Heck PharmD Unavailable +2 Dasia Waters PharmD Unavailable [phone] Reason for Visit * Reason Comments Med Refill Encounter Details Date Type Department Care Team (Late st Contact Info) Description 09/26/2023 Refill [facility] MEDICINE 230 [place], [place] [phone] Pascual Daly MD 230 [place], [place] [phone] Social History Tobacco Use Types Packs/Day Years [...] Description 09/15/2024 10:00 AM EDT Medication Management [facility] MEDICINE [address] [place] [address] 09/16/2024 9:30 AM EDT Office Visit [facility] ADULT DENTAL [address] [place] [address] Christian Winchester DDS [address] [place] [address] 10/28/2024 10:30 AM EDT Clinical Support [facility] CHC MED & PEDS 505 [place] [address] Amanda Fernández, AALIYAH 505 [place] [address] 11/16/2024 11:15 AM EDT Office Visit [facility] MEDICINE [address] [place] [address] Pascual Daly MD [address] [place] [address] 10[address] 02/17/2025 10:00 AM EDT Office Visit [facility] ADULT DENTAL [address] [place] [address] Gabriela Gaitan 230 [place] [address] documented as of this encounter Goals Goal [...] documented as of this encounter Care Teams Shovel Operator Relationship Specialty Start Date End Date Pascual Daly MD 230 [place] [address] PCP - General Internal Medicine 02/22/14 Fani Heck, PharmD [address] [place] [address] 9[address]35 Pharmacist Internal Medicine 12/16/22 08/15/24 Dasia Waters, KristiD [address] [place] [address] Pharmacist Internal Medicine 08/16/24 documented as of this encounter
--- OUTSIDE RECORDS SUMMARY | 2024-08-17 10:50 | XMS_ITS | Encounter Summary ---
Author Organization [employer] Address 75 [facility] 7t [place] [address] Care Team Providers Care Environmental Protection Officer Name Role Phone Pascual Daly MD Primary Care Provide r Fani Heck PharmD Unavailable +0 Dasia Waters PharmD Unavailable [phone] Encounter Details Date Type Department Care Team (Late st Contact Info) Description 03/11/2022 Abstract [facility] MEDICINE [address] [place] [address] Pascual Daly MD 230 [place], [place] [phone] Social History Tobacco Use Types Packs/Day Years [...] Description 09/15/2024 10:00 AM EDT Medication Management [facility] MEDICINE 230 [place], [place] [phone] 09/16/2024 9:30 AM EDT Office Visit [facility] ADULT DENTAL 230 [place], [place] [phone] Christian Winchester DDS 230 [place], [place] [phone] 10/28/2024 10:30 AM EDT Clinical Support [facility] CHC MED & PEDS 505 [place] [address] Amanda Fernández, RN 505 [place] [address] 11/16/2024 11:15 AM EDT Office Visit [facility] MEDICINE 230 [place] [address] Pascual Daly MD 230 [place] [address] 02/17/2025 10:00 AM EDT Office Visit [facility] ADULT DENTAL 230 [place] [address] Gabriela Gaitan 230 [place] [address] documented as of this encounter Visit Diagnoses Not on filedocumented in this encounter Care Teams Environmental Protection Officer Relationship Specialty Start Date End Date Pascual Daly MD [address] [place] [address] PCP - General Internal Medicine 02/22/14 Fani Heck, PharmD [address] [place] [address] 13113 Pharmacist Internal Medicine 12/16/22 08/15/24 Dasia Waters, KristiD [address] [place] [address] 8[address] Pharmacist Internal Medicine 08/16/24 documented as of this encounter
--- OUTSIDE RECORDS SUMMARY | 2024-08-17 10:50 | XMS_ITS | Encounter Summary ---
Author Organization [employer] Address 75 [facility] 7t [place] [address] Care Team Providers Care Roll On Worker Name Role Phone Pascual Daly MD Primary Care Provide r Fani Heck PharmD Unavailable +9 Dasia Waters PharmD Unavailable [phone] Reason for Visit * Reason Comments Med Refill Encounter Details Date Type Department Care Team (Late Contact Info) Description 08/08/2022 Refill [facility] 230 [place], [place] [phone] Momo Rizo MD 230 [place], [place] [phone] Mild intermittent asthma without complication Social History [...] Description 09/15/2024 10:00 AM EDT Medication Management [facility] MEDICINE 230 [place] [address] 09/16/2024 9:30 AM EDT Office Visit [facility] ADULT DENTAL 230 [place] [address] Christian Winchester DDS 230 [place] [address] 10/28/2024 10:30 AM EDT Clinical Support [facility] CHC MED & PEDS 505 [place] [address] Amanda Fernández, RN 505 [place] [address] 11/16/2024 11:15 AM EDT Office Visit [facility] MEDICINE 230 [place] [address] Pascual Daly MD 230 [place] [address] 02/17/2025 10:00 AM EDT Office Visit [facility] ADULT DENTAL 230 [place] [address] Kandy, Gabriela 230 [place] [address] documented as of this encounter Goals Goal Patient Goal Type Associated Problems Recent Progress Patient-Stated? Author Blood Pressure < 140/90 Blood Pressure 142/72( 025 12:49 PM EDT) No Fani Heck PharmD documented as of this encounter Visit Diagnoses Diagnosis Mild intermittent asthma without complication documented in this encounter Additional Health Concerns Assessment Noted Time PHQ-9 Depression Total Score: 8 07/05/19 23 9:26 AM EDT documented as of this encounter Care Teams Roll On Worker Relationship Specialty Start Date End Date Pascual Daly MD [address] [place] [address] PCP - General Internal Medicine 02/22/14 Fani Heck PharmD [address] [place] [address] 16570 Pharmacist Internal Medicine 12/16/22 08/15/24 Dasia Waters, Woody [address] [place] [address] 43162 Pharmacist Internal Medicine 08/16/24 documented as of this encounter
--- OUTSIDE RECORDS SUMMARY | 2024-08-17 10:50 | XMS_ITS | Encounter Summary ---
Author Organization [employer] Address [address] [place] [address] 7t [place] [address] Care Team Providers Care Manager Adobe Name Role Phone Pascual Daly MD Primary Care Provide r Fani Heck PharmD Unavailable +[phone] Dasia Waters PharmD Unavailable [phone] Reason for Visit * Reason Onset Date Comments Med Refill 10/11/2022 Encounter Details Date Type Department Care Team (Late st Contact Info) Description 10/11/2022 Telephone [facility] MEDICINE 230 [place], [place] [phone] Pascual Daly MD 230 [place], [place] [phone] Med Refill Social History Tobacco Use Types [...] Description 09/15/2024 10:00 AM EDT Medication Management [facility] MEDICINE 230 [place] [address] 09/16/2024 9:30 AM EDT Office Visit [facility] ADULT DENTAL 230 [place] [address] Christian Winchester DDS 230 [place] [address] 10/28/2024 10:30 AM EDT Clinical Support [facility] CHC MED & PEDS 505 [place] [address] Amanda Fernández, RN 505 [place] [address] 11/16/2024 11:15 AM EDT Office Visit [facility] MEDICINE 230 [place] [address] Pascual Daly MD 230 [place] [address] 02/17/2025 10:00 AM EDT Office Visit [facility] ADULT DENTAL 230 [place] [address] Gabriela Gaitan 230 [place] [address] documented as of this encounter Goals Goal [...] as of this encounter Care Teams Manager Adobe Relationship Specialty Start Date End Date Pascual Daly MD 230 [place] [address] PCP - General Internal Medicine 02/22/14 Fani Heck, KristiD 230 [place] [address] Pharmacist Internal Medicine 12/16/22 08/15/24 Dasia Waters, KristiD 230 [place] [address] Pharmacist Internal Medicine 08/16/24 documented as of this encounter
--- OUTSIDE RECORDS SUMMARY | 2024-08-17 10:50 | XMS_ITS | Encounter Summary ---
Author Organization [employer] Address 75 [facility] 7t [place] [address] Care Team Providers Care Care Transport Nurse Name Role Phone Pascual Daly MD Primary Care Provide r Fani Heck PharmD Unavailable +1 Dasia Waters PharmD Unavailable [phone] Reason for Visit * Reason Comments Med Refill Encounter Details Date Type Department Care Team (Late st Contact Info) Description 10/21/2023 Refill [facility] MEDICINE 230 [place] [address] Titi Gray FNP Major depressive disorder with [...] Description 09/15/2024 10:00 AM EDT Medication Management [facility] MEDICINE [address] [place] [address] 09/16/2024 9:30 AM EDT Office Visit [facility] ADULT DENTAL 230 [place] [address] Christian Winchester DDS [address] [place] [address] 10/28/2024 10:30 AM EDT Clinical Support [facility] CHC MED & PEDS 505 [place] [address] Amanda Fernández, AALIYAH 505 [place] [address] 11/16/2024 11:15 AM EDT Office Visit [facility] MEDICINE [address] [place] [address] Pascual Daly MD [address] [place] [address] 02/17/2025 10:00 AM EDT Office Visit [facility] ADULT DENTAL [address] [place] [address] Gabriela Gaitan 230 [place] [address] documented as of this encounter Goals Goal [...] documented as of this encounter Care Teams Care Transport Nurse Relationship Specialty Start Date End Date Pascual Daly MD 230 [place] [address] PCP - General Internal Medicine 02/22/14 Fani Heck, KristiD [address] [place] [address]304 Pharmacist Internal Medicine 12/16/22 08/15/24 Dasia Waters PharmD 230 [place] [address] Pharmacist Internal Medicine 08/16/24 documented as of this encounter
--- OUTSIDE RECORDS SUMMARY | 2024-08-17 10:50 | XMS_ITS | Encounter Summary ---
Author Organization [employer] Address [address] [place] [address] 7t [place] [address] Care Team Providers Care Engineer Assistant Name Role Phone Pascual Daly MD Primary Care Provide r Fani Heck PharmD Unavailable +0 Dasia Waters PharmD Unavailable [phone] Reason for Visit * Reason Comments Med Refill Encounter Details Date Type Department Care Team (Late Contact Info) Description 12/28/2022 Refill [facility] MEDICINE 230 [place] [address] Titi Gray FNP Major depressive disorder with [...] Description 09/15/2024 10:00 AM EDT Medication Management [facility] MEDICINE 230 [place], [place] [phone] 09/16/2024 9:30 AM EDT Office Visit [facility] ADULT DENTAL 230 [place] [address] Christian Winchester DDS 230 [place] [address] 10/28/2024 10:30 AM EDT Clinical Support [facility] CHC MED & PEDS 505 [place] [address] Amanda Fernández, RN 505 [place], [place] 11/16/2024 11:15 AM EDT Office Visit [facility] MEDICINE 230 [place] [address] Pascual Daly MD 230 [place] [address] 02/17/2025 10:00 AM EDT Office Visit [facility] ADULT DENTAL 230 [place] [address] Gabriela Gaitan 230 [place] [address] documented as of this encounter Goals Goal [...] documented as of this encounter Care Teams Engineer Assistant Relationship Specialty Start Date End Date Pascual Daly MD [address] [place] [address] PCP - General Internal Medicine 02/22/14 Fani Heck, PharmD [address] [place] [address]29 Pharmacist Internal Medicine 12/16/22 08/15/24 Dasia Waters, KristiD [address] [place] [address] 6[address]01 Pharmacist Internal Medicine 08/16/24 documented as of this encounter
--- OUTSIDE RECORDS SUMMARY | 2024-08-17 10:50 | XMS_ITS | Encounter Summary ---
Author Organization [employer] Address 75 [facility] 7t [place] [address] Care Team Providers Care Insights Manager Name Role Phone Pascual Daly MD Primary Care Provide r Fani Heck PharmD Unavailable [phone] Encounter Details Date Type Department Care Team [...] Description 09/15/2024 10:00 AM EDT Medication Management [facility] MEDICINE [address] [place] [address] 09/16/2024 9:30 AM EDT Office Visit [facility] ADULT DENTAL [address] [place] [address] Christian Winchester DDS 230 [place] [address] 10/28/2024 10:30 AM EDT Clinical Support [facility] CHC MED & PEDS 505 [place] [address] Amanda Fernández, AALIYAH 505 [place] [address] 11/16/2024 11:15 AM EDT Office Visit [facility] MEDICINE [address] [place] [address] Pascual Daly MD [address] [place] [address] 02/17/2025 10:00 AM EDT Office Visit [facility] ADULT DENTAL 230 [place] [address] Gabriela Gaitan 230 [place] [address] documented as of this encounter Goals Goal [...] documented as of this encounter Care Teams Insights Manager Relationship Specialty Start Date End Date Pascual Daly MD 230 [place] [address] PCP - General Internal Medicine 02/22/14 Fani Heck, PharmD 230 [place] [address] Pharmacist Internal Medicine 12/16/22 08/15/24 documented as of this encounter
--- OUTSIDE RECORDS SUMMARY | 2024-08-17 10:50 | XMS_ITS | Encounter Summary ---
Author Organization [employer] Address 75 [facility] 7t [place] [address] Care Team Providers Care Refractory Grinder Operator Name Role Phone Pascual Daly MD Primary Care Provide r Fani Heck PharmD Unavailable +2 Dasia Waters PharmD Unavailable [phone] Reason for Visit * Reason Onset Date Comments FYI 12/31/2023 Encounter Details Date Type Department Care Team (Late st Contact Info) Description 12/31/2023 Telephone [facility] MEDICINE 230 [place], [place] [phone] Pascual Daly MD 230 [place], [place] [phone] Social History Tobacco Use Types Packs/Day Years [...] any questions you can contact Franky at [phone]. documented in this encounter Plan of Treatment Upcoming Encounters Date Type Department Care Team (Late st Contact Info) Description 09/15/2024 10:00 AM EDT Medication Management [facility] MEDICINE 230 [place] [address] 09/16/2024 9:30 AM EDT Office Visit [facility] ADULT DENTAL 230 [place] [address] Christian Winchester DDS 230 [place] [address] 10/28/2024 10:30 AM EDT Clinical Support [facility] CHC MED & PEDS 505 [place] [address] Amanda Fernández, RN 505 [place], [place] 11/16/2024 11:15 AM EDT Office Visit [facility] MEDICINE 230 [place] [address] Pascual Daly MD 230 [place] [address] 02/17/2025 10:00 AM EDT Office Visit [facility] ADULT DENTAL 230 [place] [address] KandyGabriela 230 [place] [address] documented as of this encounter Goals Goal [...] documented as of this encounter Care Teams Refractory Grinder Operator Relationship Specialty Start Date End Date Pascual Daly MD [address] [place] [address] PCP - General Internal Medicine 02/22/14 Fani Heck, PharmD [address] [place] [address] Pharmacist Internal Medicine 12/16/22 08/15/24 Dasia Waters, KristiD [address] [place] [address] Pharmacist Internal Medicine 08/16/24 documented as of this encounter
--- OUTSIDE RECORDS SUMMARY | 2024-08-17 10:50 | XMS_ITS | Encounter Summary ---
Author Organization [employer] Address 75 [facility] 7t [place] [address] Care Team Providers Care Refrigeration System Installer Name Role Phone Pascual Daly MD Primary Care Provide r Fani Heck PharmD Unavailable + Dasia Waters PharmD Unavailable [phone] Reason for Visit * Reason Comments Med Refill Encounter Details Date Type Department Care Team (Late st Contact Info) Description 01/01/2024 Refill [facility] 230 [place], [place] [phone] Momo Rizo MD 230 [place], [place] [phone] Social History Tobacco Use Types Packs/Day Years [...] Description 09/15/2024 10:00 AM EDT Medication Management [address] [address] 09/16/2024 9:30 AM EDT Office Visit [facility] ADULT DENTAL [address] [place] [address] Christian Winchester DDS [address] [place] [address] 10/28/2024 10:30 AM EDT Clinical Support [facility] CH[facility] MED & PEDS 505 [place] [address] Amanda Fernández, RN 505 [place] [address] 11/16/2024 11:15 AM EDT Office Visit [facility] MEDICINE [address] [place] [address] Pascual Daly MD [address] [place] [address] 02/17/2025 10:00 AM EDT Office Visit [facility] ADULT DENTAL [address] [place] [address] Gabriela Gaitan 230 [place] [address] documented as of this encounter Goals Goal [...] documented as of this encounter Care Teams Refrigeration System Installer Relationship Specialty Start Date End Date Pascual Daly MD 230 [place] [address] PCP - General Internal Medicine 02/22/14 Fani Heck, PharmD 230 [place] [address] Pharmacist Internal Medicine 12/16/22 08/15/24 Dasia Waters, KristiD 230 [place] [address] Pharmacist Internal Medicine 08/16/24 documented as of this encounter
--- OUTSIDE RECORDS SUMMARY | 2024-08-17 10:50 | XMS_ITS | Encounter Summary ---
Author Organization [employer] Address 75 [facility] 7t [place] [address] Care Team Providers Care Nailhead Setter Name Role Phone Pascual Daly MD Primary Care Provide r Fani Heck PharmD Unavailable + Dasia Waters PharmD Unavailable [phone] Encounter Details Date Type Department Care Team (Late st Contact Info) Description 03/13/2022 Abstract [facility] MEDICINE [address] [place] [phone] Provider, MD Bill Social History Tobacco Use [...] Description 09/15/2024 10:00 AM EDT Medication Management [facility] MEDICINE [address] [place] [address] 09/16/2024 9:30 AM EDT Office Visit [facility] ADULT DENTAL [address] [place] [address] Christian Winchester DDS [address] [place] [address] 10/28/2024 10:30 AM EDT Clinical Support [facility] CHC MED & PEDS [address] [place] [address] Amanda Fernández, RN 505 [place] [address] 11/16/2024 11:15 AM EDT Office Visit [facility] MEDICINE [address] [place] [address] Pascual Daly MD 230 [place] [address] 02/17/2025 10:00 AM EDT Office Visit [facility] ADULT DENTAL [address] [place] [address] Gabriela Gaitan [address] [place] [address] documented as of this encounter Visit Diagnoses Not on filedocumented in this encounter Care Teams Nailhead Setter Relationship Specialty Start Date End Date Pascual Daly MD [address] [place] [address] PCP - General Internal Medicine 02/22/14 Fani Heck, KristiD [address] [place] [address] Pharmacist Internal Medicine 12/16/22 08/15/24 Dasia Waters PharmD [address] [place] [address] Pharmacist Internal Medicine 08/16/24 documented as of this encounter
--- OUTSIDE RECORDS SUMMARY | 2024-08-17 10:50 | XMS_ITS | Encounter Summary ---
Author Organization [employer] Address [address] [facility] 7t [place] [address] Care Team Providers Care Forest Logistics Manager Name Role Phone Pascual Daly MD Primary Care Provide r Fani Heck PharmD Unavailable +5 Dasia Waters PharmD Unavailable [phone] Reason for Visit * Reason Onset Date Comments FYI 11/06/2023 Encounter Details Date Type Department Care Team (Late st Contact Info) Description 11/06/2023 Telephone [facility] MEDICINE [address] [place], [place] [phone] Pascual Daly MD [address] [place], [place] [phone] Social History Tobacco Use Types Packs/Day Years [...] - 11/06/2023 4:39 PM EDT Tc from [facility] Iker CORDERO PT informing pt has started services For PT 11/06/23 documented in this encounter Plan of Treatment Upcoming Encounters Date Type Department Care Team ([facility] st Contact Info) Description 09/15/2024 10:00 AM EDT Medication Management [facility] [address] [place] [address] 09/16/2024 9:30 AM EDT Office Visit [facility] ADULT DENTAL [address] [place] [address] Christian Winchester DDS [address] [place] [address] 10/28/2024 10:30 AM EDT Clinical Support [facility] MED [facility] PEDS [address] [place] [address] Amanda Fernández, RN 505 [place] [address] 11/16/2024 11:15 AM EDT Office Visit [facility] [address] [place] [address] Pascual Daly MD [address] [place] [address] 02/17/2025 10:00 AM EDT Office Visit [facility] ADULT DENTAL [address] [facility] [place] [place] [address] Kandy, Gabriela [address] [place] [address] documented as of this encounter Goals Goal [...] documented as of this encounter Care Teams Forest Logistics Manager Relationship Specialty Start Date End Date Pascual Daly MD [facility] [place], [place] [phone] PCP - General Internal Medicine 02/22/14 Fani Heck, PharmD [facility] [place] [address] Pharmacist Internal Medicine 12/16/22 08/15/24 Dasia Waters [place] [address] Pharmacist Internal Medicine 08/16/24 documented as of this encounter
--- OUTSIDE RECORDS SUMMARY | 2024-08-17 10:50 | XMS_ITS | Encounter Summary ---
Author Organization [employer] Address 75 [facility] 7t [place] [address] Care Team Providers Care Material Attendant Name Role Phone Pascual Daly MD Primary Care Provide r Fani Heck PharmD Unavailable +[phone] Dasia Waters PharmD Unavailable [phone] Reason for Visit * Reason Comments Med Refill Encounter Details Date Type Department Care Team (Late st Contact Info) Description 03/04/2023 Refill [facility] MEDICINE [address] [place], [place] [phone] Pascual Daly MD [address] [place], [place] [phone] Type 2 diabetes mellitus without complication, with long-term current use of insulin ([facility]) Social History Tobacco Use Types Packs/Day [...] Description 09/15/2024 10:00 AM EDT Medication Management [facility] MEDICINE [address] [place] [address] 09/16/2024 9:30 AM EDT Office Visit [facility] ADULT DENTAL [address] [place] [address] Christian Winchester DDS [address] [place] [address] 10/28/2024 10:30 AM EDT Clinical Support [facility] CHC MED & PEDS [address] [place] [address] Amanda Fernández, RN [address] [place] [address] 11/16/2024 11:15 AM EDT Office Visit [facility] MEDICINE [address] [place] [address] Pascual Daly MD [address] [place] [address] 02/17/2025 10:00 AM EDT Office Visit [facility] ADULT DENTAL [address] [place] [address] Gabriela Gaitan [address] [place] [address] documented as of this encounter Goals Goal Patient Goal Type Associated Problems Recent Progress Patient-Stated? Author Blood Pressure < 140/90 Blood Pressure 142/72( 025 12:49 PM EDT) No Fani Heck, PharmD documented as of this encounter Visit Diagnoses Diagnosis Type 2 diabetes mellitus without complication, with long-term current use of insulin ([facility]) documented in this encounter Additional Health Concerns Assessment Noted Time PHQ-9 Depression Total Score: 9 02/25/20 23 11:02 AM EST documented as of this encounter Care Teams Material Attendant Relationship Specialty Start Date End Date Pascual Daly MD 230 [place] [address] PCP - General Internal Medicine 02/22/14 Fani Heck, PharmD 230 [place] [address] Pharmacist Internal Medicine 12/16/22 08/15/24 Dasia Waters, KristiD [address] [place] [address] Pharmacist Internal Medicine 08/16/24 documented as of this encounter
--- OUTSIDE RECORDS SUMMARY | 2024-08-17 10:50 | XMS_ITS | Encounter Summary ---
Author Organization [employer] Address 75 [facility] 7t [place] [address] Care Team Providers Care Film Or Videotape Editor Name Role Phone Pascual Daly MD Primary Care Provide r Fani Heck PharmD Unavailable +[phone] Dasia Waters PharmD Unavailable [phone] Reason for Visit * Reason Onset Date Comments FYI 12/11/2023 Durable Medical Equipment 12/11/2023 Encounter Details Date Type Department Care Team (Late st Contact Info) Description 12/11/2023 Telephone [facility] MEDICINE [address] [place], [place] [phone] Pascual Daly MD 230 [place], [place] [phone] FYI ; Durable Medical Equipment Social History [...] EDT Tc from [facility] with [facility] informing that pt had 2 falls within the last 3 days and is requesting two DME scripts to be sent to [facility] which: [facility] bed Please fax over to [phone] documented in this encounter Plan of Treatment Upcoming Encounters Date Type Department Care Team (Late st Contact Info) Description 09/15/2024 10:00 AM EDT Medication Management [facility] MEDICINE [address] [place] [address] 09/16/2024 9:30 AM EDT Office Visit [facility] ADULT DENTAL [address] [place] [address] Christian Winchester DDS [address] [place] [address] 10/28/2024 10:30 AM EDT Clinical Support [facility] CHC MED & PEDS [address] [place] [address] Amanda Fernández, RN 505 [place] [address] 11/16/2024 11:15 AM EDT Office Visit [facility] MEDICINE [address] [place] [address] Pascual Daly MD [address] [place] [address] 02/17/2025 10:00 AM EDT Office Visit [facility] ADULT DENTAL [address] [place] [address] Kandy, Gabriela [address] [place] [address] documented as of this encounter Goals Goal [...] documented as of this encounter Care Teams Film Or Videotape Editor Relationship Specialty Start Date End Date Pascual Daly MD [address] [place] [address] PCP - General Internal Medicine 02/22/14 Fani Heck, PharmD [address] [place] [address] Pharmacist Internal Medicine 12/16/22 08/15/24 Dasia Waters, KristiD [address] [place] [address] Pharmacist Internal Medicine 08/16/24 documented as of this encounter
--- OUTSIDE RECORDS SUMMARY | 2024-08-17 10:50 | XMS_ITS | Encounter Summary ---
Author Organization [employer] Address 75 [facility] 7t [place] [address] Care Team Providers Care Final Block Press Operator Name Role Phone Pascual Daly MD Primary Care Provide r Fani Heck PharmD Unavailable [phone] Dasia Waters PharmD Unavailable [phone] Encounter Details Date Type Department Care Team (Latest Contact Info) Description 05/26/2019 Abstract [facility] CONVERSIONS Dental, Provider, DDS Social [...] Description 09/15/2024 10:00 AM EDT Medication Management [facility] MEDICINE [address] [place] [address] 09/16/2024 9:30 AM EDT Office Visit [facility] ADULT DENTAL [address] [place] [address] Christian Winchester DDS [address] [place] [address] 10/28/2024 10:30 AM EDT Clinical Support [facility] CHC MED & PEDS [address] [place] [address] Amanda Fernández, RN 505 [place] [address] 11/16/2024 11:15 AM EDT Office Visit [facility] MEDICINE [address] [place] [address] Pascual Daly MD [address] [place] [address] 02/17/2025 10:00 AM EDT Office Visit [facility] ADULT DENTAL [address] [place] [address] Gabriela Gaitan [address] [place] [address] documented as of this encounter Visit Diagnoses Not on filedocumented in this encounter Care Teams Final Block Press Operator Relationship Specialty Start Date End Date Pascual Daly MD [address] [place] [address] PCP - General Internal Medicine 02/22/14 Fani Heck, PharmD [address] [place] [address] Pharmacist Internal Medicine 12/16/22 08/15/24 Dasia Waters, KristiD [address] [place] [address] Pharmacist Internal Medicine 08/16/24 documented as of this encounter
--- OUTSIDE RECORDS SUMMARY | 2024-08-17 10:50 | XMS_ITS | Encounter Summary ---
Author Organization [employer] Address 75 [facility] 7t [place] [address] Care Team Providers Care Qa Auditor Name Role Phone Pascual Daly MD Primary Care Provide r Fani Heck PharmD Unavailable [phone] Dasia Waters PharmD Unavailable [phone] Reason for Visit * Reason Comments Med Refill Encounter Details Date Type Department Care Team (Late st Contact Info) Description 10/21/2023 Refill [facility] MEDICINE [address] [place] [address] Titi Gray FNP Major depressive disorder with [...] Description 09/15/2024 10:00 AM EDT Medication Management [facility] MEDICINE [address] [place] [address] 09/16/2024 9:30 AM EDT Office Visit [facility] ADULT DENTAL [address] [place] [address] Christian Winchester DDS [address] [place] [address] 10/28/2024 10:30 AM EDT Clinical Support [facility] CHC MED & PEDS [address] [place] [address] Amanda Fernández, AALIYAH [address] [place] [address] 11/16/2024 11:15 AM EDT Office Visit [facility] MEDICINE [address] [place] [address] Pascual Daly MD [address] [place] [address] 02/17/2025 10:00 AM EDT Office Visit [facility] ADULT DENTAL [address] [place] [address] Gabriela Gaitan [address] [place] [address] documented as of this encounter Goals Goal [...] documented as of this encounter Care Teams Qa Auditor Relationship Specialty Start Date End Date Pascual Daly MD [address] [place] [address] PCP - General Internal Medicine 02/22/14 Fani Heck, KristiD [address] [place] [address] Pharmacist Internal Medicine 12/16/22 08/15/24 Dasia Waters PharmD [address] [place] [address] Pharmacist Internal Medicine 08/16/24 documented as of this encounter
--- OUTSIDE RECORDS SUMMARY | 2024-08-17 10:50 | XMS_ITS | Clinical Summary ---
Author Organization [employer] Address [address] [facility] [address] [place] [address] Care Team Providers Care Party Plan Sales Unit Advisor Name Role Phone Pascual Daly MD Primary Care Provide r Dasia Waters PharmD Unavailable [phone] Allergies Active Allergy Reactions Criticality Noted Date [...] IN 15MINUTES IF PATIENT DOES NOT RESPOND. 023 Active Simethicone Ultra Strength 180 MG capsule [...] Active Continuous Glucose Sensor (Dexcom G7 Sensor) mis DIRECTED Active Actemra ACTPen 162 MG/0.9ML solution [...] complication, with long-term current use of insulin ([facility]) TAKE 1 TABLET BY MOUTH EVERY MORNING [...] for severe pain. 56 tablet 025 Active Alcohol Swabs (Alcohol Pads) 70 % padsIndications :Type 2 diabetes mellitus without complication, with long-term current use of insulin ([facility]) Use up to 4 times a day for insulin injections 100 each 11 025 Active Blood Pressure Monitoring (Adult Blood Pressure Cuff Lg) kit Use daily to check blood pressure 1 kit 025 Active oxyCODONE (Roxicodone) 5 MG immediate release tabletIndicatio ns:Fibromyalgia Take 1 tablet (5 mg) by mouth every 12 (twelve) hours if needed for severe pain. Do not start before July 09, 2024. 56 tablet 025 2024 Discontinued(R eorder (will not trigger notification to Pharmacy)) Active Problems Problem Noted Date Diagnosed Date Coronary artery disease invo lving [place] coronary artery of [place] heart without angina pectoris 08/12/2024 Assessment & Plan (08/12/2024 10:19 AM EDT): Under the care of Cardiology Dr Uribe [...] (10/21/2023 10:15 AM EDT): Patient admitted to [facility] 09/09/23 after she presented to [place] emergency room due to left-sided chest discomfort as per patient she was visiting family in [place], on August 26 she turned in high [...] (08/27/2022 10:19 AM EDT): followed by a remotely piloted vehicle controller. 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 - Follow-up in [facility] in November. Repeat BMP and A1c [...] from 8.9 Eye exam done on: 12/2023 [facility] Dx with new [...] f/u She is under the care of Life Skills Coordinator Volunteer Dr Sprague, last seen 12/31/2023 On a [...] f/u She is under the care of Life Skills Coordinator Volunteer Dr Sprague, last seen 10/16/2023 On a [...] f/u She is under the care of Life Skills Coordinator Volunteer Dr Sprague, has a follow up with [...] f/u She is under the care of Life Skills Coordinator Volunteer Dr Sprague, has a follow up at [...] was referred to Dr. Manjinder Gonsales at [facility] as her medical insurance recommended this referral. [...] LDL-C. Melquiades WALLACE et al. TEN. 2013;310(19): 0991-6462 (http://education.[employer] [place]/faq/ECW183) Chol/HDLC Ratio <5.0 (calc) 4.2 3.7 2.5 [...] Encounters Date Type Department Care Team Description 08/16/2024 Orders Only GENERIC EXTERNAL DATA DEPARTMENT Provider, Generic External Data 08/16/2024 Travel 08/12/2024 10:15 AM EDT Office Visit [facility] [address] [place] [address] Pascual Daly MD Type 2 diabetes mellitus with right eye affected by mild nonproliferative retinopathy without macular edema, with long-term current use of insulin (CMS/[facility]) (Primary Dx); Type 2 diabetes mellitus without complication, with long-term current use of insulin (CMS/HCC); Mixed hyperlipidemia; Primary hypertension; Gastroesophageal reflux disease without esophagitis; Coronary artery disease involving [place] coronary artery of [place] heart without angina pectoris 08/12/2024 Travel 08/06/2024 Telephone [facility] [address] [place] [address] Pascual Daly MD Chart Prep 08/05/2024 10:00 AM EDT Office Visit [facility] ADULT DENTAL [address] [place] [address] Gabriela Gaitan Dental plaque (Primary Dx); Localized gingival recession; Xerostomia; Odontoma 08/05/2024 Refill [facility] [address] [place] [address] Pascual Daly MD Fibromyalgia 08/02/2024 Orders Only [facility] [address] [place] [address] Pascual Daly MD 07/29/2024 Orders Only GENERIC EXTERNAL DATA DEPARTMENT Provider, Generic External Data 07/22/2024 10:30 AM EDT Clinical Support [facility] [address] [facility] [place] [address] Amanda Fernández, AALIYAH Fibromyalgia (Primary Dx); Long-term current use of opiate analgesic 07/22/2024 Telephone [facility] [address] [facility] [place] [address] Amanda Fernández, AALIYAH 07/22/2024 Travel 07/21/2024 Orders Only [facility] [address] [place] [address] Pascual Daly MD Type 2 diabetes mellitus without complication, with long-term current use of insulin (CMS/HCC) (Primary Dx) 07/21/2024 Telephone [facility] [address] [place] [address] Pascual Daly MD 07/14/2024 Telephone [facility] [address] [place] [address] Pascual Daly MD Chart Prep 07/07/2024 Refill [facility] [address] [place] [address] Pascual Daly MD Fibromyalgia 07/07/2024 Orders Only GENERIC EXTERNAL DATA DEPARTMENT Provider, Generic External Data 06/22/2024 Refill [facility] [address] [facility] [place] [address] Pascual Daly MD Pain 06/15/2024 Orders Only GENERIC EXTERNAL DATA DEPARTMENT Provider, Generic External Data 06/10/2024 Refill [facility] [address] [facility] [place] [address] Pascual Daly MD Fibromyalgia 06/04/2024 Orders Only GENERIC EXTERNAL DATA DEPARTMENT Provider, Generic External Data 05/31/2024 Refill [facility] [address] [place] [address] Nikia Jeter MD Type 2 diabetes mellitus without complication, with long-term current use of insulin ([facility]); Benign hypertension 05/24/2024 Refill [facility] [address] [place] [address] Pascual Daly MD Benign hypertension from Last 3 Months Immunizations [...] Sign Reading Time Taken Comments Blood Pressure 142/72 08/16/2024 12:49 PM EDT Pulse 69 08/12/2024 10:00 AM EDT Temperature 35.8 ??C (96.4 ??F) 08/12/2024 10:00 AM E DT Respiratory Rate 20 08/12/2024 10:00 AM EDT Oxygen Saturation 95% 08/12/2024 10:00 AM EDT Inhaled Oxygen Concentration - - Weight 70.5 kg (155 lb 6.4 oz) 08/12/2024 10:00 AM EDT Height 147.3 cm (4' 10 ) 08/12/2024 10:00 AM EDT Body Mass Index 32.48 08/12/2024 10:00 AM EDT Plan of Treatment Upcoming Encounters Date Type Department Care Team (Late st Contact Info) Description 09/15/2024 10:00 AM EDT Medication Management [facility] [address] [place] [phone] 09/16/2024 9:30 AM EDT Office Visit [facility] AD[facility] [address] [place] [address] Christian Winchester DDS [address] [place] [address] 10/28/2024 10:30 AM EDT Clinical Support [facility] [address] [place] [address] Amanda Fernández, RN [address] [place] [address] 11/16/2024 11:15 AM EDT Office Visit [facility] [address] [place] [address] Pascual Daly MD [address] [place] [address] 02/17/2025 10:00 AM EDT Office Visit [facility] [address] [place] [address] Primo Gaitanaris [address] [place] [address] Health Maintenance Due Date Last Done Comments CT Colonography 1950 Dental X-Ray: Bitewings 1950 FIT DNA/Cologuard 1950 FIT 1950 FOBT 1950 Sigmoidoscopy 1950 Diabetes: Foot Exam 02/08/1960 Eye Exam 02/08/1960 DTaP/Tdap/Td Vaccines (2 - Td or Tdap) 09/25/2023 09/24/2013, 02/22/2003, 08/21/1992 COVID-19 Vaccine ( season) 2023 04/18/2022, 09/04/2021, 03/05/2021, Additional history exists Diabetes: Urine Protein Screening 07/01/2024 07/02/2023, 01/10/2023, 07/17/2021, Additional history exists Diabetes: Hemoglobin A1C 11/11/2024 025, 05/04/2024, 02/17/2024, Additional history exists Depression Screening 01/28/2025 01/29/2024, 01/29/20 Dental Oral Exam 02/05/2025 08/05/2024 Dental Prophylaxis 02/05/2025 08/05/2024 Alcohol/Substance Use Screening 05/04/2025 05/04/2024 Mammogram 08/02/2025 08/02/2024, 05/22, 05/23/2022, Additional history exists SDOH Screening 08/12/2025 08/12/2024 Tobacco Screening 08/12/2025 08/12/2024 Lipid Panel 08/16/2025 08/16/2024, 10/19, 07/02/2023, Additional history exists Dental X-Ray: Full Mouth 08/07/2027 08/05/2024 Colonoscopy [...] 12:49 PM EDT) No Fani Heck, Woody Procedures Procedure Name Priority Date/Time Associated Diagnosis Comments TSH Routine 08/16/2024 9:24 AM EDT PTH, INTACT WITHOUT CALCIUM Routine 08/16/2024 9:24 AM EDT T4, FREE Routine 08/16/2024 9:24 AM EDT CBC WITH AUTO DIFFERENTIAL Routine 08/16/2024 9:24 AM EDT Coronary artery disease involving [place] coronary artery of [place] heart without angina pectoris HEPATIC FUNCTION PANEL Routine 08/16/2024 9:24 AM EDT Mixed hyperlipidemia Coronary artery disease involving [place] coronary artery of [place] heart without angina pectoris BASIC METABOLIC PANEL Routine 08/16/2024 9:24 AM EDT Primary hypertension LIPID PANEL, STANDARD Routine 08/16/2024 9:24 AM EDT Mixed hyperlipidemia POCT GLYCATED HEMOGLOBIN, TOTAL Routine 08/12/2024 10:16 AM EDT Type 2 diabetes mellitus without complication, with long-term current use of insulin ([facility]) POCT GLUCOSE Routine 08/12/2024 10:11 AM EDT Type 2 diabetes mellitus without complication, with long-term current use of insulin ([facility]) PERIODIC ORAL EVALUATION - ESTABLISHED PATIENT Routine [...] WHOLE BLOOD Routine 06/04/2024 11:14 AM EST ALBUMIN, RANDOM URINE W/CREATININE Routine 07/02/2023 10:06 AM EDT HEPATITIS C VIRAL RNA GENOTYPE, LIPA Routine 01/15/2023 11:08 AM EDT HM COLONOSCOPY Routine 03/20/2018 from Last 3 Months or Most Recently Relevant to Health Maintenance Results * (ABNORMAL) CBC auto differential (08/16/2024 9:24 AM EDT) White Blood Count 8.7 4.8 - 10.8 X10*3/uL [facility] Red Blood Count 3.95(L) 4.20 - 5.50 X10*6/uL [facility] Hemoglobin 11.3(L) 12.0 - 16.0 g/dl [facility] Hematocrit 36.0(L) 37.0 - 47.0 % [facility] Mean Corpuscular Volume 91.1 80.0 - 98.0 fL [facility] Mean Corpuscular Hemoglobin 28.6 27.0 - 33.0 pg [facility] Mean Corpuscular HGB Conc 31.4 31.0 - 35.0 g/dl [facility] Red Cell Distribution Width 14.6 11.0 - 16.0 % [facility] Platelet Count 186 160 - 400 X10*3/uL [facility] Mean Platelet Volume 11.1 9.4 - 12.3 fL [facility] Neutrophils Percent Auto 42.9(L) 45 - 73 % [facility] Imm Gran Pct Auto 0.6(H) 0.0 - 0.4 % [facility] Lymphocytes Percent Auto 33.8 20 - 40 % [facility] Monocytes Percent Auto 6.5 2 - 11 % [facility] Eosinophils Percent Auto 14.8(H) 0 - 4 % [facility] Basophils Percent Auto 1.4 0 - 2 % [facility] NRBC Pct Auto 0.0 0.0 - 0.2 /100WBC [facility] Neutrophils Absolute Auto 3.8 2.0 - 8.3 x10*3/uL [facility] Imm Gran Abs Auto 0.05(H) 0.00 - 0.03 X10*3/uL [facility] Lymphocytes Absolute Auto 3.0 1.2 - 4.9 X10*3/uL [facility] Monocytes Absolute Auto 0.6 0.1 - 1.2 X10*3/uL [facility] Eosinophils Absolute Auto 1.3(H) 0.0 - 0.4 X10*3/uL [facility] Basophils Absolute Auto 0.1 0.0 - 0.2 X10*3/uL [facility] NRBC Abs Auto 0.000 0.0 - 0.012 X10*3/uL [facility] Blood Venous blood specimen / Unknown 08/16/2024 9:24 AM EDT 08/16/2024 10:57 AM EDT us Pascual Terry MD LAB BLOOD ORDERABLES Final Result [facility] [address] [place] [phone] * (ABNORMAL) TSH (08/16/2024 9:24 AM EDT) Thyroid Stimulating Hormone 21.47(H) 0.32 - 4.0 uIU/mL [facility] Comment:Note: A sustained TS H level above 2.5 uIU/mL may warrant further investigation. TSH 3rd Generation ([facility]) 08/16/2024 9:24 AM EDT 08/16/2024 10:57 AM EDT us Generic External Data Provider LAB BLOOD ORDERAB LES Final Result Performing Organization Address City/[facility]/ZIP Co de Phone Number [facility] [address] [place] [phone] * (ABNORMAL) T4, Free (08/16/2024 9:24 AM EDT) Free T4 (Free Thyroxine) 0.60(L) 0.71 - 1.85 ng/dL [facility] 08/16/2024 9:24 AM EDT 08/16/2024 10:57 AM EDT Generic External Data Provider LAB BLOOD ORDERAB LES Final Result Performing Organization Address [facility] de Phone Number [facility] [address] [place] [phone] * (ABNORMAL) PTH, Intact Without Calcium (08/16/2024 9:24 AM EDT) Only the most recent of2 resultswithin the time period is included. Parathyroid Hormone, Intact 187.5(H) 8.7 - 77.1 pg/mL [facility] 08/16/2024 9:24 AM EDT 08/16/2024 10:57 AM EDT Generic External Data Provider LAB BLOOD ORDERAB LES Final Result Performing Organization Address [facility] [[email or web address]] Co de Phone Number [facility] [address] [place] [phone] * (ABNORMAL) Hepatic Function Panel (08/16/2024 9:24 AM EDT) Bilirubin, Total 0.3 0.0 - 1.0 mg/dL [facility] Bilirubin, Direct 0.2 0.0 - 0.5 mg/dL [facility] Aspartate Amino Transferase 39(H) 5 - 31 U/L [facility] Alanine Aminotransferase 49(H) 0 - 31 U/L [facility] Total Protein 6.3(L) 6.5 - 8.0 g/dL [facility] Albumin Level 4.0 3.5 - 5.0 g/dL [facility] Alkaline Phosphatase 77 39 - 117 U/L [facility] Blood Venous blood specimen / Unknown 08/16/2024 9:24 AM EDT 08/16/2024 10:57 AM EDT us Pascual Trery MD LAB BLOOD ORDERABLES Final Result [facility] [address] [place] [phone] * Lipid Panel, Standard (08/16/2024 9:24 AM EDT) Triglycerides 100 <150 mg/dL [facility] Comment:Desirable Triglyceri de: less than 150 mg/dLBorderline High Triglyceride 150-199 mg/dLHigh Triglyceride: 200-499 mg/dLVery High Triglyceride: greater than or equal to 5OO mg/dL Cholesterol 145 <200 mg/dL [facility] Comment:Desirable Cholestero l: less than 200 mg/dLBorderline High Cholesterol: 200-239 mg/dLHigh Cholesterol: greater than 239 mg/dL LDL Cholesterol Calculated 60 <100 mg/dL [facility] Comment:Desirable LDL: less than 100 mg/dLNear Optimal/Above Optimal LDL: 110- 129 mg/dLBorderline High LDL: 130-159 mg/dLHigh LDL: 160-189 mg/dLVery High LDL: greater than or equal to 190 mg/dL HDL Cholesterol 65 >40 mg/dL [facility] Comment:Desirable HDL: great er than 40 mg/dL Note: This HDL assay may give artificially low results in patients with liver disease. Blood Venous blood specimen / Unknown 08/16/2024 9:24 AM EDT 08/16/2024 10:57 AM EDT Pascual Terry MD LAB BLOOD ORDERABLES Final Result Performing Organization Address [facility]/ZIP Co de Phone Number [facility] [address] [place] [phone] * (ABNORMAL) Basic Metabolic Panel (08/16/2024 9:24 AM EDT) Sodium 140 135 - 145 mmol/L [facility] Potassium 5.0 3.3 - 5.1 mmol/L [facility] Chloride 104 96 - 108 mmol/L [facility] Carbon Dioxide 30(H) 22 - 29 mmol/L [facility] Anion Gap 11(L) 12 - 20 [facility] Urea Nitrogen (BUN) 17(H) 9 - 16 mg/dL [facility] Creatinine, Serum 1.09 0.5 - 1.4 mg/dL [facility] Estimated Glomerular Filt Rate 49 [facility] Comment:Chronic Kidney Disea se: Estimated GFR < 60 mL/min/1.85o5Kuhghl Kidney Disease: Estimated GFR < 15 mL/min/1.73m2 Glucose 188(H) 60 - 115 mg/dL [facility] Calcium 8.7 8.4 - 10.2 mg/dL [facility] Blood Venous blood specimen / Unknown 08/16/2024 9:24 AM EDT 08/16/2024 10:57 AM EDT Pascual Terry MD LAB BLOOD ORDERABLES Final Result Performing Organization Address [facility]/ZIP Co de Phone Number [facility] [address] [place] [phone] * (ABNORMAL) POCT HGB A1C (08/12/2024 10:16 AM EDT) Hemoglobin A1C 7.8(A) 4.0 - 6.0 % QC Media Lot # [id number] Lot# Expiration Date [id number] Blood 08/12/2024 10:1 6 AM EDT Pascual Terry MD POINT OF CARE TEST EN TER/EDIT ORDERABLES Final Result * (ABNORMAL) POCT Glucose (08/12/2024 10:11 AM EDT) Glucose Blood, POC 203(A) 60 - 200 mg/dL QC Media Lot # [id number] Lot# Expiration Date ,025 Blood Capillary blood specimen / Unknown 08/12/2024 10:11 AM EDT Pascual Terry MD POINT OF CARE TEST EN TER/EDIT ORDERABLES Final Result * BI Mammogram Screening Tomosynthesis Bilateral (08/02/2024 11:03 AM EDT) Anatomical Region Laterality Modality Breast Bilateral Mammography 08/02/2024 11:0 3 AM EDT Narrative 08/10/2024 3:27 PM EDT ? [facility] [place] ? [address] ?[place] [address] ?[phone] ? Mammography Report ? Signed ? Patient: Max,Brandie ?MR#: [id number] ? : 1950 ?Acct:[id number] ? Age/Sex: 74 / F ?ADM Date: 04/14/25 ? Loc: HO.MAMMO ? Attending Dr: Pascual Darnell MD ? Ordering Physician: Pascual Darnell MD ?Resu ?? lts: 2Benign Findings ? Date of Service: 08/02/24 ?Follow Up: 1 Year From Orig ?? inal Mammogram ? Procedure(s): MM tomosynthesis screening BI ?? Accession Number(s): [id number] ? cc: Pascual Darnell MD ? EXAMINATION: [...] DD/ 1103 ? TD/TT: 08/02/24 1116 ? Winch Operator: ? Procedure Note Donotuseinterpreter, Image - 08/10/2024 [place] [facility] [address] [place] [address] Mammography Report Signed Patient: Dino Santana#: [id number] : 1950Acct:[id number] Age/Sex: 74 / FADM Date: 08/02/24 Loc: [facility] Attending Dr: Pascual Darnell MD Ordering Physician: Pascual Darnell MDResu lts: 2Benign Findings Date of Service: 08/02/24Follow Up: 1 Year From Orig inal Mammogram Procedure(s): MM tomosynthesis screening BI Accession Number(s): [id number] cc: Pascual Darnell MD EXAMINATION: MM SCREENING [...] 08/10/24 1523 DD/ 1103 TD/TT: 08/02/24 1116 Winch Operator: Pascual Terry MD IMG BI PROCEDURES Fin al Result * (ABNORMAL) Glucose, Whole Blood (07/29/2024 8:53 AM EDT) Only the most recent of4 resultswithin the time period is included. Glucose, Whole Blood 265(H) 60 - 115 mg/dL [facility] Comment:METER #: [id number] 5Testing performed in the Endocrinology Department [address] , [address], [facility]. 07/29/2024 8:53 AM EDT 07/29/2024 9:01 AM EDT Generic External Data Provider LAB BLOOD ORDERAB LES Final Result [facility] [address] [place] [phone] * POCT HEATHER-14 Urine Drug Screen (07/22/2024 10:33 AM EDT) Oxycodone Screen, Urine Positive Urine Urine specimen obtained by clean catch procedure / Unknown 07/22/2024 10:33 AM EDT Narrative Amanda Fernández RN - 07/22/2024 10:33 AM EDT Lot# [id number] Exp: 12-08-25 Pascual Terry MD POINT OF CARE TEST EN TER/EDIT ORDERABLES Final Result * Alkaline Phosphatase, Bone Specific (06/15/2024 11:09 AM EST) Alkaline Phosphatase, Bone Specific 13.2 5.6 - 29.0 mcg/L [facility] Comment:Reference Range, Pre menopausal (mcg/L) 35-45 years 5.0-18.2THIS TEST WAS PERFORMED AT:[id number] [place] [address]JCKCAPMJOHN CORDON MD,PHD 06/15/2024 11:0 9 AM EST 06/15/2024 11:13 AM EST Generic External Data Provider LAB BLOOD ORDERAB LES Final Result Performing Organization Address City/[facility]/ZIP Co de Phone Number [facility] [address] [place] [phone] * Calcium, Ionized (06/15/2024 11:09 AM EST) Calcium, Ionized 5.3 4.7 - 5.5 mg/dL [facility] Comment:THIS TEST WAS PERFOR MED AT:[facility] [address] [address]NDCMFGEORGE HURLEY MD 06/15/2024 11:0 9 AM EST 06/15/2024 11:13 AM EST Generic External Data Provider LAB BLOOD ORDERAB LES Final Result Performing Organization Address City/[facility]/ZIP Co de Phone Number [facility] [address] [place] [phone] * (ABNORMAL) Albumin, Random Urine W/Creatinine (07/02/2023 10:06 AM EDT) Creatinine, Urine 163.81 mg/dL [facility] Microalbumin Urine 59.0 mg/L [facility] Microalbum Creatinine Ratio Ur 36.0(H) <30 ug/mg cr [facility] Comment:Albumin/Creatinine R atio Reference Ranges: Normal: < 30 ug/mg creatinine Microalbuminuria: 30 - 300 ug/mg creatinineClinical Albuminuria: > 300 ug/mg creatinine 07/02/2023 10:0 6 AM EDT 07/02/2023 11:41 AM EDT Generic External Data Provider LAB URINE ORDERAB LES Final Result Performing Organization Address City/[facility]/ZIP Co de Phone Number [facility] [address] [place] [phone] * Hepatitis C Viral RNA, Genotype, LiPA (01/15/2023 11:08 AM EDT) Hepatitis C Genotype Not Detected [facility] Comment: Genotype not detected due to [...] characteristics of thisassay have been determined by [employer], [place], [place]. ??The modificationshave not been cleared or approved by the FDA. ??Thisassay has been validated pursuant to the CLIAregulations and is used for clinical purposes.For additional information, please refer tohttp://education.[employer] [place]/faq/HCVGenotyping(This link is being provided for informational/educational purposes only.)THIS TEST WAS PERFORMED AT:[employer] [place] [address]EGQHFZAJOHN CORDON MD,PHD 01/15/2023 11:0 8 AM EDT 01/15/2023 11:08 AM EDT [facility] External Provider LAB BLO OD ORDERABLES Final Result Performing Organization Address [facility]/ZIP Co de Phone Number [facility] [address] [place] [phone] * Hm Colonoscopy (03/20/2018) Colonoscopy Normal Normal 03/20/2018 Sondra Felix - 03/20/2018 9:09 AM EST Recommended 10 year follow up us Historical Provider HEALTH MAINTENANCE Edited Result - Final from Last 3 Months or Most Recently Relevant to Health Maintenance Insurance [facility] OPTIONS (O D-SNP) [facility] Care Teams Party Plan Sales Unit Advisor Relationship Specialty Start Date End Date Pascual Daly MD [address] [place] [address] PCP - General Internal Medicine 02/22/14 Dasia Waters PharmD [address] [place] [address] Pharmacist Internal Medicine 08/16/24
--- OUTSIDE RECORDS SUMMARY | 2024-08-17 10:50 | XMS_ITS | Encounter Summary ---
Author Organization [employer] Address [address] [facility] 7t [place] [address] Care Team Providers Care Otolaryngology Teacher Name Role Phone Pascual Daly MD Primary Care Provide r Fani Heck PharmD Unavailable +2 Dasia Waters PharmD Unavailable [phone] Encounter Details Date Type Department Care Team (Late st Contact Info) Description 07/01/2022 Abstract [facility] WALK-IN CENTER [address] [place], [place] [phone] Pascual Daly MD [address] [place], [place] [phone] Social History Tobacco Use Types Packs/Day Years [...] Description 09/15/2024 10:00 AM EDT Medication Management [facility] MEDICINE [address] [place] [address] 09/16/2024 9:30 AM EDT Office Visit [facility] ADULT DENTAL [address] [place] [address] Christian Winchester DDS [address] [place] [address] 10/28/2024 10:30 AM EDT Clinical Support [facility] CHC MED & PEDS [address] [place] [address] Amanda Fernández, AALIYAH 505 [place] [address] 11/16/2024 11:15 AM EDT Office Visit [facility] MEDICINE [address] [place] [address] Pascual Daly MD [address] [place] [address] 02/17/2025 10:00 AM EDT Office Visit [facility] ADULT DENTAL [address] [place] [address] Gabriela Gaitan [address] [place] [address] documented as of this encounter Goals Goal [...] documented as of this encounter Care Teams Otolaryngology Teacher Relationship Specialty Start Date End Date Pascual Daly MD [address] [place] [address] PCP - General Internal Medicine 02/22/14 Fani Heck, KristiD [address] [place] [address] Pharmacist Internal Medicine 12/16/22 08/15/24 Dasia Waters, KristiD [address] [place] [address] Pharmacist Internal Medicine 08/16/24 documented as of this encounter
--- OUTSIDE RECORDS SUMMARY | 2024-08-17 10:50 | XMS_ITS | Encounter Summary ---
Author Organization [employer] Address [address] [facility] 7t [place] [address] Care Team Providers Care Drawer Maker Name Role Phone Pascual Daly MD Primary Care Provide r Fani Heck PharmD Unavailable [phone] Dasia Waters PharmD Unavailable [phone] Reason for Visit * Reason Onset Date Comments Med Refill 12/15/2023 Encounter Details Date Type Department Care Team (Late st Contact Info) Description 12/15/2023 Telephone [facility] MEDICINE 230 [place], [place] [phone] Pascual Daly MD 230 [place], [place] [phone] Med Refill Social History Tobacco Use Types [...] Miscellaneous Notes * Telephone Encounter - Bradley Gutrhie - 12/15/2023 2:28 PM EDT TC from pt requesting medication refill. Medications needing refill: oxyCODONE (Roxicodone) 5 MG immediate release tablet To be sent to: [facility] - [place], [place] - [address] [place] [address] documented in this encounter Plan of Treatment Upcoming Encounters Date Type Department Care Team ([facility] st Contact Info) Description 09/15/2024 10:00 AM EDT Medication Management [facility] MEDICINE [address] [place] [address] 09/16/2024 9:30 AM EDT Office Visit [facility] ADULT DENTAL [address] [place] [address] Christian Winchester DDS [address] [place] [address] 10/28/2024 10:30 AM EDT Clinical Support [facility] CHC MED & PEDS 505 [place] [address] Amanda Fernández, RN 505 [place] [address] 11/16/2024 11:15 AM EDT Office Visit [facility] [address] [facility] [place] [address] Pascual Daly MD 230 [facility] [place] 02/17/2025 10:00 AM EDT Office Visit [facility] ADULT DENTAL [address] [facility] [place], [place] [phone] Kandy, Gabriela 230 [place] [address] documented as of this encounter Goals Goal [...] documented as of this encounter Care Teams Drawer Maker Relationship Specialty Start Date End Date Pascual Daly MD [facility] [place] [address] PCP - General Internal Medicine 02/22/14 Fani Heck, PharmD [facility] [place] [address] Pharmacist Internal Medicine 12/16/22 08/15/24 Dasia Waters, KristiD [facility] [place] [address] Pharmacist Internal Medicine 08/16/24 documented as of this encounter
--- OUTSIDE RECORDS SUMMARY | 2024-08-17 10:50 | XMS_ITS | Encounter Summary ---
Author Organization [employer] Address [address] [facility] 7t [place] [address] Care Team Providers Care Plate Fitter Name Role Phone Pascual Daly MD Primary Care Provide r Fani Heck PharmD Unavailable [phone] Dasia Waters PharmD Unavailable [phone] Reason for Visit * Reason Onset Date Comments Med Refill 01/13/2024 Encounter Details Date Type Department Care Team (Late st Contact Info) Description 01/13/2024 Telephone [facility] MEDICINE [address] [place], [place] [phone] Pascual Daly MD 230 [place], [place] [phone] Med Refill Social History Tobacco Use Types [...] immediate release tablet To be sent to: [facility] - [place], [place] - [address] [place] [address] documented in this encounter Plan of Treatment Upcoming Encounters Date Type Department Care Team ([facility] st Contact Info) Description 09/15/2024 10:00 AM EDT Medication Management [facility] MEDICINE [address] [place] [address] 09/16/2024 9:30 AM EDT Office Visit [facility] ADULT DENTAL [address] [place] [address] Christian Winchester DDS [address] [place] [address] 10/28/2024 10:30 AM EDT Clinical Support [facility] CHC MED & PEDS 505 [place] [address] Amanda Fernández, RN 505 [place] [address] 11/16/2024 11:15 AM EDT Office Visit [facility] MEDICINE [address] [place] [address] Pascual Daly MD 230 [place], [place] 02/17/2025 10:00 AM EDT Office Visit [facility] ADULT DENTAL [address] [place] [address] Kandy, Gabriela [address] [place] [address] documented as of this encounter Goals Goal [...] documented as of this encounter Care Teams Plate Fitter Relationship Specialty Start Date End Date Pascual Daly MD [address] [place] [address] PCP - General Internal Medicine 02/22/14 Fani Heck, PharmD [address] [place] [address] Pharmacist Internal Medicine 12/16/22 08/15/24 Dasia Waters, PharmD [address] [place] [address] Pharmacist Internal Medicine 08/16/24 documented as of this encounter
--- OUTSIDE RECORDS SUMMARY | 2024-08-17 10:50 | XMS_ITS | Encounter Summary ---
Author Organization [employer] Address [address] [facility] 7t [place] [address] Care Team Providers Care Bus Attendant Name Role Phone Pascual Daly MD Primary Care Provide r Fani Heck PharmD Unavailable [phone] Dasia Waters PharmD Unavailable [phone] Encounter Details Date Type Department Care Team (Late st Contact Info) Description 05/29/2022 Abstract [facility] MEDICINE 230 [place] [address] Pascual Daly MD 230 [place], [place] [phone] Social History Tobacco Use Types Packs/Day Years [...] 10:00 AM EDT Medication Management [facility] MEDICINE 230 [place] [address] 09/16/2024 9:30 AM EDT Office Visit [facility] ADULT DENTAL 230 [place] [address] Christian Winchester DDS 230 [place] [address] 10/28/2024 10:30 AM EDT Clinical Support [facility] CHC MED & PEDS 505 [place] [address] Amanda Fernández, AALIYAH 505 [place] [address] 11/16/2024 11:15 AM EDT Office Visit [facility] MEDICINE 230 [place] [address] Pascual Daly MD 230 [place] [address] 02/17/2025 10:00 AM EDT Office Visit [facility] ADULT DENTAL 230 [place] [address] Gabriela Gaitan 230 [place] [address] documented as of this encounter Goals Goal Patient Goal Type Associated Problems Recent Progress Patient-Stated? Author Blood Pressure < 140/90 Blood Pressure 142/72( 025 12:49 PM EDT) Fani [place], PharmD documented as of this encounter Procedures [...] documented as of this encounter Care Teams Bus Attendant Relationship Specialty Start Date End Date Pascual Daly MD 230 [place] [address] PCP - General Internal Medicine 02/22/14 Fani Heck PharmD [address] [place] [address] Pharmacist Internal Medicine 12/16/22 08/15/24 Dasia Waters PharmD 230 [place] [address] Pharmacist Internal Medicine 08/16/24 documented as of this encounter
--- OUTSIDE RECORDS SUMMARY | 2024-08-17 10:50 | XMS_ITS | Encounter Summary ---
Author Organization [employer] Address [address] [facility] 7t [place] [address] Care Team Providers Care Humanities Division Chair Name Role Phone Pascual Daly MD Primary Care Provide r Fani Heck PharmD Unavailable [phone] Dasia Waters PharmD Unavailable [phone] Encounter Details Date Type Department Care Team (Late st Contact Info) Description 03/11/2022 Abstract [facility] MEDICINE 230 [place] [address] Fani Heck, PharmD 230 [place], [place] [phone] Social History Tobacco Use Types Packs/Day Years [...] Description 09/15/2024 10:00 AM EDT Medication Management [facility] MEDICINE 230 [place], [place] [phone] 09/16/2024 9:30 AM EDT Office Visit [facility] ADULT DENTAL [address] [place], [place] [phone] Christian Winchester DDS [address] [place], [place] [phone] 10/28/2024 10:30 AM EDT Clinical Support [facility] CHC MED & PEDS 505 [place] [address] Amanda Fernández, RN 505 [place] [address] 11/16/2024 11:15 AM EDT Office Visit [facility] MEDICINE 230 [place] [address] Pascual Daly MD 230 [place] [address] 02/17/2025 10:00 AM EDT Office Visit [facility] ADULT DENTAL [address] [place] [address] Gabriela Gaitan 230 [place] [address] documented as of this encounter Visit Diagnoses Not on filedocumented in this encounter Care Teams Humanities Division Chair Relationship Specialty Start Date End Date Pascual Daly MD [address] [place] [address] PCP - General Internal Medicine 02/22/14 Fani Heck, PharmD [address] [place] [address] Pharmacist Internal Medicine 12/16/22 08/15/24 Dasia Waters, KristiD [address] [place] [address] Pharmacist Internal Medicine 08/16/24 documented as of this encounter
--- OUTSIDE RECORDS SUMMARY | 2024-08-17 10:50 | XMS_ITS | Encounter Summary ---
Author Organization [employer] Address [address] [place] [address] 7t [place] [address] Care Team Providers Care Bike Mechanic Name Role Phone Pascual Daly MD Primary Care Provide r Fani Heck PharmD Unavailable [phone] Dasia Waters PharmD Unavailable [phone] Reason for Visit * Reason Comments Med Refill Encounter Details Date Type Department Care Team (Late st Contact Info) Description 07/16/[address] [facility] MEDICINE 230 [place], [place] [phone] Pascual Daly MD 230 [place], [place] [phone] Social History Tobacco Use Types Packs/Day Years [...] 10:00 AM EDT Medication Management [facility] MEDICINE 230 [place] [address] 09/16/2024 9:30 AM EDT Office Visit [facility] ADULT DENTAL [address] [place] [address] Christian Winchester DDS 230 [place] [address] 10/28/2024 10:30 AM EDT Clinical Support [facility] CHC MED & PEDS 505 [place] [address] Amanda Fernández, RN 505 [place] [address] 11/16/2024 11:15 AM EDT Office Visit [facility] MEDICINE 230 [place] [address] Pascual Daly MD 230 [place] [address] 02/17/2025 10:00 AM EDT Office Visit [facility] ADULT DENTAL 230 [place] [address] Gabriela Gaitan 230 [place] [address] documented as of this encounter Goals Goal [...] documented as of this encounter Care Teams Bike Mechanic Relationship Specialty Start Date End Date Pascual Daly MD [address] [place] [address] PCP - General Internal Medicine 02/22/14 Fani Heck, KristiD 230 [place] [address] Pharmacist Internal Medicine 12/16/22 08/15/24 Dasia Waters, KristiD 230 [place] [address] Pharmacist Internal Medicine 08/16/24 documented as of this encounter
== END ==
LOC: HO.CARD 09:43
PROVIDERS: PCP Internal Medicine; Visit Provider Internal Medicine
DX: R06.02 Shortness of breath (principal)
CPT/HCPCS: 93306; Q9957

== ENCOUNTER → 2024-08-17 10:05 | Outpatient (BNV) | payer OTHER, SELFPAY | PROVIDERS: PCP Internal Medicine; Visit Provider Internal Medicine | DX: I34.81 Nonrheumatic mitral (valve) annulus calcification (principal); R06.02 Shortness of breath | CPT/HCPCS: 93306 ==

== ENCOUNTER 2024-09-07 10:04 | Outpatient (AMB) | payer OTHER, SELFPAY ==
--- NOTE | 2024-09-07 07:34 | A.OFFVIS_ITS ---
Vital Signs 09/07/24 10:28 Height 4 ft 11 in Weight 156 lb 8.451 oz BMI 31.6 BP 154/84 H Blood Pressure Location Rt brachial Position Sitting Pulse 75 Pulse Source Pulse Oximeter Intake Visit Reasons: T1DM Intake Note: Patient presents today for a follow-up on Type 1 Diabetes Mellitus: Last Diabetic eye exam was on: 01/20/2024 Last Podiatry exam was on: [facility] - Orthopedics 09/02/2024 Most recent HbA1c: 7.6%, 09/07/2024 Random Glucose- 145 mg/dL, Today Supervisor [employer] Required: Yes Supervisor [employer] Language: Ornament Stapler Services: Supervisor [employer] Present Supervisor [employer] Name: RADHA Tao/RAJ VICENTE Information Interpreted: non-clinical & clinical Accompanied by: PILE DRIVING SUPERINTENDENT Allergies lorazepam [LORAZEPAM] Allergy (Severe, Verified 09/07/24 10:24) DELIRIUM celecoxib [From Celebrex] Allergy (Intermediate, Verified 09/07/24 10:24) ITCHING tramadol [TRAMADOL] Allergy (Intermediate, Verified 09/07/24 10:24) ITCHING zolpidem [Ambien] Allergy (Unknown, Verified 09/07/24 10:24) unknown HPI Comments Details: Patient is a 74-year-old female with DM type 1 diagnosed at 40 years of age, initially thought to have type 2 diabetes, who presents for management of diabetes. She was last seen 5 weeks ago. We are actively titrating her insulin upward so that she can get cleared for trigger finger release surgery. A1c in the office today is 7.6%. The patient plans on going upstairs to her surgeon to give her a copy of the A1c results. She does report a history of hypoglycemic coma in the past. 2023 she dropped her sugar to the 20s. She reports using her insulin prior to meals without fail. She had a recent increase in Levothyroxine 125 mcg mcg and is due for repeat blood work in 4-5 weeks Prior h/o elevated PTH had decreased in past with vit d supplementation recent calcium level 8.7 Micro and macrovascular complications: CAD Diabetes medications: Tresiba 19 units Fiasp breakfast 80-100 3 units 101-150 6 units 151-200 7 units 201-250 8 units 250-300 9 units over 300 10 units Lunch and supper: 80-100 4 units 101-150 7 units 151-200 8 units 201-250 9 units lunch 8 supper 250-300 9 units over 300 10 units Dexcom average glucose: 236 14 day continuous glucose monitor report reviewed Glucose Managment indicator 9 % Days with CGM data 92 % TIme in ranges: 38 % very high (above 250) 41 % high ?(181-250) 20 % in range ?(70-180] 1 % low (69-55) Less than 1 % ?very low (below 54) Interpretation; postprandial increases after breakfast and lunch No neuropathy Symptoms reported: denies numbness, tingling, cramping in lower extremities sees Dr Ernandez Hypoglycemia: reports hypoglycemia once in the past month mild at night takes snack before bedtime every night Exercise: denies Professor Of Environmental Engineering - CDE education: in past Ophthalmology evaluation: last eye exam 01/2024 Other specialists: mental health counselor, neurologist, Dr. Tang Exercise: denies Professor Of Environmental Engineering - CDE education: in past Ophthalmology evaluation: last visit 06/2024 Other specialists: mental health counselor, neurologist, Dr. Tang [facility] Medical History Heart palpitations Hypoglycemia due to insulin Elevated parathyroid hormone Osteoporosis Hyperlipidemia (04/21/1959) Depressive disorder (04/21/1959) Nutritional anemia (04/21/1959) Shortness of breath Hypothyroidism (04/21/1959) Anemia Chronic gastritis NSTEMI (non-ST elevated myocardial infarction) Recurrent falls (12/04/11) Iron deficiency anemia (04/21/1959) Fibromyositis (04/21/1959) Eczema (04/21/1959) High risk medication use Hepatitis C antibody positive in blood Screening for osteoporosis Screening for viral disease Joint swelling Overweight (BMI 25.0-29.9) Neck pain Swelling of knee joint, right Intra-abdominal abscess Diabetes Elevated liver function tests Intestinal malabsorption following gastrectomy Obesity (BMI 30-39.9) 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 Hypertension Cholecystitis Hyperlipidemia, unspecified Essential hypertension Atherosclerotic cardiovascular disease Fibromyalgia Folliculitis Anxiety Depression History of myocardial infarction Diabetes type 1, uncontrolled 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 Mother CVA (cerebral vascular accident) Sister Hypertension Brother Hypertension Liver cancer Social History Household Members: None Housing: Apartment Are you a primary career development associate to a significant other at home: No Do you presently have visiting nurse or other home services: Yes Unable to assess alcohol history related to: Unable to respond Alcohol intake: never Patient Tobacco Use Status: Never used Tobacco Advance Directives Date on File: 09/17/23 service: No Current occupational status: disabled Current occupation: right hand dominant Physical Exam Vital Signs: Last Vital Signs Pulse 75 09/07/24 10:28 BP 154/84 H 09/07/24 10:28 BMI result Body Mass Index 31.6 Const Other: Absence of Cushingoid features. Absence of acromegalic features. Neck exam reveals nl size thyroid about 15 gms. No thyroid nodules palpable. Heart S1 S2, Reg R/R. No M/R G. Skin exam reveals absence of vitiligo or acanthosis nigricans. arthritic changes DIPs PIPs Visual exam of foot performed. No ulcerations or open lesions. No inter digit maceration or fissuring. No onychomycosis, no callouses. Bunion right foot. Sensation intact to monofilament exam. Vibratory sensation is normal with 128 Hz tuning fork. positive pulses distally Results AMB Hemoglobin A1c AMB Hemoglobin A1c 7.6 % Last Edit by RADHA Tao on 09/07/24 10:50 Results Reviewed Results Reviewed: Laboratory Last Values Glucose (Clinic) 145 mg/dL (60-115) H 09/07/24 10:35 Hgb A1c (Clinic) 7.6 % (4.0-6.0) H 09/07/24 10:50 Assessment & Plan Assessment & Plan (1) Diabetes type 1, uncontrolled: Comment: Doses of Tresiba over 19 units cause am lows! Code(s): E10.65 - Type 1 diabetes mellitus with hyperglycemia Category: Medical Qualifiers: Glycemic state: with hypoglycemia Coma presence: without coma Qualified Code(s): E10.649 - Type 1 diabetes mellitus with hypoglycemia without coma Plan: 74-year-old type 1 diabetic with history of hypoglycemia in the past very sensitive to insulin. A1c is iproved down to 7.6% Would not recommend any changes to this patient's Tresiba higher than the 19 unit she is taking as dose escalation in the past has caused significant hypoglycemia. Tresiba 19 units Breakfast dosing Fiasp 80-100 4 units 101-200 7 units 151-200 8 units 201-250 9 units 251 -300 10 units Over 300 11 units Lunch and supper 80-100 8 units 101-150 9 units 151-200 9 units 201-250 10 units 250-300 11 units over 300 lunch 12 units supper 11 units The patient had an opportunity to ask questions regarding treatment plan. The patient expressed understanding and agreement with the above treatment plan. The patient is aware they should contact our office by phone for worsening glucose readings or for any low blood sugars which may warrant a change in diabetes medication. Compliance is encouraged with medications and any followup testing/consults which may have been ordered. 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 She is compliant with taking medication every day on an empty stomach. We will repeat blood work in 4 weeks. (3) Hyperparathyroidism due to vitamin D deficiency: Code(s): E21.1 - Secondary hyperparathyroidism, not elsewhere classified Category: Medical Plan: Continue vitamin-D supplementation. Recheck level along with PTH. Calcium has been normal in the past Orders: Orders AMB Hemoglobin A1c Today E10.649 - Type 1 diabetes mellitus with hypoglycemia without coma Albumin Level 3 Weeks E21.1 - Secondary hyperparathyroidism, not elsewhere classified Calcium 3 Weeks E21.1 - Secondary hyperparathyroidism, not elsewhere classified Vitamin D 25-OH Total Today E21.1 - Secondary hyperparathyroidism, not elsewhere classified Coding Level of Care Code Est Pt Level 4 (43049) Complex EM visit Add On G2211 Diagnoses Uncontrolled type 1 diabetes mellitus with hypoglycemia without coma E10.649 Glycemic state: with hypoglycemia Coma presence: without coma 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
[2024-09-07 10:28] VITALS: BP 154/84; PULSE 75; BMI 31.6
[2024-09-07 10:41] LABS: Glucose, Whole Blood 145 mg/dL (60-115)
--- OUTSIDE RECORDS SUMMARY | 2024-09-07 11:17 | XMS_ITS | Encounter Summary ---
Author Organization [employer] Address [address] [facility] 7t [place] [address] Care Team Providers Care Garbage Worker Name Role Phone Pascual Daly MD Primary Care Provide r Fani Heck PharmD Unavailable [phone] Dasia Waters PharmD Unavailable [phone] Reason for Visit * Reason Comments Med Refill Encounter Details Date Type Department Care Team ([facility] st Contact Info) Description 01/14/2024 Refill [facility] CHC MED & PEDS [address] [place] [address] Pascual Daly MD [address] [place], [place] [phone] Fibromyalgia Social History Tobacco Use Types Packs/Day [...] Description 09/15/2024 10:00 AM EDT Medication Management [facility] MEDICINE [address] [place] [address] 09/16/2024 9:30 AM EDT Office Visit [facility] ADULT DENTAL [address] [place] [address] Christian Winchester DDS [address] [place] [address] 10/28/2024 10:30 AM EDT Clinical Support [facility] CHC MED & PEDS [address] [place] [address] Amanda Fernández, AALIYAH 505 [place] [address] 11/16/2024 11:15 AM EDT Office Visit [facility] MEDICINE [address] [place] [address] Pascual Daly MD [address] [place] [address] 02/17/2025 10:00 AM EDT Office Visit [facility] ADULT DENTAL [address] [place] [address] Gabriela Gaitan [address] [place] [address] documented as of this encounter Goals Goal [...] documented as of this encounter Care Teams Garbage Worker Relationship Specialty Start Date End Date Pascual Daly MD [address] [place] [address] PCP - General Internal Medicine 02/22/14 Fani Heck, PharmD [address] [place] [address] Pharmacist Internal Medicine 12/16/22 08/15/24 Dasia Waters PharmD [address] [place] [address] Pharmacist Internal Medicine 08/16/24 documented as of this encounter
--- OUTSIDE RECORDS SUMMARY | 2024-09-07 11:17 | XMS_ITS | Encounter Summary ---
Author Organization [employer] Address 75 [facility] 7t [place] [address] Care Team Providers Care Litigation Assistant Name Role Phone Pascual Daly MD Primary Care Provide r Fani Heck PharmD Unavailable +1 Dasia Waters PharmD Unavailable [phone] Encounter Details Date Type Department Care Team (Late st Contact Info) Description 08/29/2022 Abstract [facility] 230 [place] [address] Pascual Daly MD 230 [place], [place] [phone] Social History Tobacco Use Types Packs/Day Years [...] Description 09/15/2024 10:00 AM EDT Medication Management [facility] 230 [place] [address] 09/16/2024 9:30 AM EDT Office Visit [facility] 230 [place] [address] Christian Winchester DDS 230 [place] [address] 10/28/2024 10:30 AM EDT Clinical Support [facility] [address] [place] [address] Amanda Fernández, RN 505 [place] [address] 11/16/2024 11:15 AM EDT Office Visit [facility] 230 [place] [address] Pascual Daly MD 230 [place] [address] 02/17/2025 10:00 AM EDT Office Visit [facility] 230 [place] [address] Gabriela Gaitan 230 [place] [address] documented as of this encounter Goals Goal [...] documented as of this encounter Care Teams Litigation Assistant Relationship Specialty Start Date End Date Pascual Daly MD 230 [place] [address] PCP - General Internal Medicine 02/22/14 Fani Heck, KristiD 230 [place] [address] Pharmacist Internal Medicine 12/16/22 08/15/24 Dasia Waters, KristiD 230 [place] [address] Pharmacist Internal Medicine 08/16/24 documented as of this encounter
--- OUTSIDE RECORDS SUMMARY | 2024-09-07 11:17 | XMS_ITS | Encounter Summary ---
Author Organization [employer] Address 75 [facility] 7t [place] [address] Care Team Providers Care Test Hole Driller Name Role Phone Pascual Daly MD Primary Care Provide r Dasia Waters PharmD Unavailable [phone] Encounter Details Date Type Department Care Team ([facility] st Contact Info) Description 09/07/2024 Orders Only GENERIC EXTERNAL DATA DEPARTMENT Provider, [...] 09/15/2024 10:00 AM EDT Medication Management [facility] [address] [place] [address] 09/16/2024 9:30 AM EDT Office Visit [facility] [address] [place] [address] Christian Winchester DDS [address] [place] [address] 10/28/2024 10:30 AM EDT Clinical Support [facility] 505 [place] [address] Amanda Fernández, RN 505 [place] [address] 11/16/2024 11:15 AM EDT Office Visit [facility] [address] [place] [address] Pascual Daly MD [address] [place] [address] 02/17/2025 10:00 AM EDT Office Visit [facility] 230 [place] [address] Gabriela Gaitan 230 [place] [address] documented as of this encounter Goals Goal Patient Goal Type Associated Problems Recent Progress Patient-Stated? Author Blood Pressure < 140/90 Blood Pressure 142/72( 025 12:49 PM EDT) No Fani Heck PharmD documented as of this encounter Procedures Procedure Name Priority Date/Time Associated Diagnosis Comments GLUCOSE, WHOLE BLOOD Routine 09/07/2024 10:35 AM EDT documented in this encounter Results * (ABNORMAL) Glucose, Whole Blood (09/07/2024 10:35 AM EDT) Glucose, Whole Blood 145(H) 60 - 115 mg/dL [facility] Comment:METER #: [id number] 5Testing performed in the Endocrinology Department [address] , [address], [place]. 09/07/2024 10:3 5 AM EDT 09/07/2024 10:41 AM EDT us Generic External Data Provider LAB BLOOD ORDERAB LES Final Result [facility] [address] [place] [phone] [phone] documented in this encounter Visit Diagnoses Not on filedocumented in this encounter Additional Health Concerns Assessment Noted Time PHQ-9 Depression Total Score: 9 01/29/20 24 11:00 AM EDT documented as of this encounter Care Teams Test Hole Driller Relationship Specialty Start Date End Date Pascual Daly MD 230 [place] [address] PCP - General Internal Medicine 02/22/14 Dasia Waters PharmD 230 [place] [address] Pharmacist Internal Medicine 08/16/24 documented as of this encounter
--- OUTSIDE RECORDS SUMMARY | 2024-09-07 11:17 | XMS_ITS | Encounter Summary ---
Author Organization [employer] Address 75 [facility] 7t [place] [address] Care Team Providers Care Mortgage Consultant Name Role Phone Pascual Daly MD Primary Care Provide r Fani Heck PharmD Unavailable [phone] Dasia Waters PharmD Unavailable [phone] Reason for Visit * Reason Onset Date Comments Appointment Request 09/03/2022 Encounter Details Date Type Department Care Team (Late st Contact Info) Description 09/03/2022 Telephone [facility] 230 [place], [place] [phone] Pascual Daly MD 230 [place] [address] Appointment Request Social History Tobacco Use Types [...] 10:00 AM EDT Medication Management [facility] [address] [place] [address] 09/16/2024 9:30 AM EDT Office Visit [facility] [address] [place] [address] Christian Winchester DDS [address] [place] [address] 10/28/2024 10:30 AM EDT Clinical Support [facility] 505 [place] [address] Amanda Fernández, RN 505 [place] [address] 11/16/2024 11:15 AM EDT Office Visit [facility] [address] [place] [address] Pascual Daly MD 230 [place] [address] 02/17/2025 10:00 AM EDT Office Visit [facility] [address] [place] [address] Gabriela Gaitan 230 [place] [address] documented as of this encounter Goals Goal [...] as of this encounter Care Teams Mortgage Consultant Relationship Specialty Start Date End Date Pascual Daly MD 230 [place] [address] PCP - General Internal Medicine 02/22/14 Fani Heck, KristiD 230 [place] [address] Pharmacist Internal Medicine 12/16/22 08/15/24 Dasia Waters PharmD 230 [place] [address] Pharmacist Internal Medicine 08/16/24 documented as of this encounter
--- OUTSIDE RECORDS SUMMARY | 2024-09-07 11:17 | XMS_ITS | Encounter Summary ---
Author Organization [facility] Address [address] [place] [address] Care Team Providers Care Track Maintainer Name Role Phone Pascual Darnell MD Primary Care Provi chio Reason for Visit * Reason Comments Consult HOG COUNTER diabetic foot car e * Consultation (Routine) - Closed Specialty Diagnoses / Procedures Referred By Jairo t Referred To Contact Podiatry / Orthopaedic Surgery Diagnoses Type 1 diabetes mellitus with hypoglycemia without coma (CMS/[facility] V24, CMS/[facility] V28) Pascual Darnell MD [address] [place] [address] Phone: tel: fax: Luciano Smith DPM [address] [address] Phone: tel: fax: Referral ID Status Reason Start Date Expiration Date V isits Requested Visits Authorized [id number] Closed Specialty Services Required 06/18/2024 06/18/2025 1 1 Encounter Details Date Type Department Care Team (Late st Contact Info) Description 09/02/2024 10:30 AM EDT Consult Orthopedic Surgery - [place] [address] [phone] Luciano Smith DPM [address] [address] Dermatophytosis of nail (Primary Dx); Type 1 diabetes mellitus with hypoglycemia without coma (CMS/HCC V24, CMS/[facility] V28); Type 1 diabetes mellitus with mononeuropathy (CMS/[facility] V24, CMS/[facility] V28); Pain in toe of right foot; Pain in toe of left foot; Acquired hammer toe of right foot; Hammer toe of left foot; Acquired hallux valgus of left foot; Acquired hallux valgus of right foot Social History Tobacco Use Types Packs/Day Years Used Date Smoking Tobacco: Never Assessed Comments Unknown Sex and Gender Information Value Date Recorded Sex Assigned at Not on file Legal Sex Female 1:35 PM EDT Gender Identity Not on file Sexual Orientation Not on file documented as of this encounter Last Filed Vital Signs Vital Sign Reading Time Taken Comments Blood Pressure - - Pulse - - Temperature - - Respiratory Rate - - Oxygen Saturation - - Inhaled Oxygen Concentration - - Weight 79.4 kg (175 lb) 09/02/2024 10:46 AM EDT Height 149.9 cm (4' 11 ) 09/02/2024 10:46 AM EDT Body Mass Index 35.35 09/02/2024 10:46 AM EDT documented in this encounter Progress Notes * Luciano Smith DPM - 09/02/2024 10:30 AM EDT Last PCP visit:Referring MD: Moy Darnell*05/18/2024 IDENTIFIER: Max is a 74 y.o. year old female who presents for consultation. CC: Foot pain HPI: Max is a 74 y.o. year old female presents complaining of pain in both feet she reports she has numbness burning tingling to her feet she is type I diabetic follows with her primary care has a complex past medical history listed below reports her nails elongated painful thickened to the foot cutting myself she does have severe deformities bunions and hammertoes she states they do affect where she walks ROS: GENERAL: Pt denies nausea, fever, vomiting, chills, or shortness of breath. Pt in NAD. CARDIOLOGY: pt denies chest pain, palpitations LUNGS: pt denies shortness of breath MUSCULOSKELETAL: See HPI, otherwise no joint pain or swelling, back pain, or muscle pain. SKIN: see HPI, otherwise no lesions, rash or itching NEURO: No persistent headache, weakness or numbness The remainder of the review of systems is noncontributory PAST MEDICAL HISTORY: There is no problem list on file for this patient. SOCIAL HISTORY: Social History Tobacco Use Smoking status: Not on file Smokeless tobacco: Not on file Substance Use Topics Alcohol use: Not on file ACTIVE MEDICATIONS: No outpatient medications have been marked as taking for the 09/02/24 encounter (Consult) with Luciano Smith DPM. ALLERGIES: Allergies Allergen Reactions Clonazepam PHYSICAL EXAM: Visit Vitals Ht 1.499 m (59 ) Wt 79.4 kg (175 lb) BMI 35.35 kg/m?? BSA 1.74 m?? PODIATRIC EXAMINATION: GENERAL: Patient appears well nourished, with NAD. VASCULAR: Dorsalis pedis pulses are 2/4 bilaterally and Posterior tibial pulses are 2/4 bilaterally. Capillary filling time within normal limits the digits. No pallor on elevation or rubor on dependency. No varicosities. Denies rest pain or claudication pain. NEUROLOGICAL: Sharp/dull sensation intact, protective sensation intact 10/10 with Ipswitch touch test bilaterally, vibratory sensation intact to the tibial tuberosity. ORTHOPEDIC: Good muscle strength 5/5 of all flexors and extensors. Dorsi flexion of ankle ,10 degrees, plantar flexion WNL. No muscle atrophy. DERMATOLOGICAL:. Toenails: Left Toenail(s) 1-5: subungual debris, discoloration, hypertrophic, elongation, mycotic appearance, onychomycosis, pain and thickening. Right Toenail(s) 1-5: subungual debris, discoloration, hypertrophic, elongation, mycotic appearance, onychomycosis, pain and thickening. Annular scaling bilateral feet moccasin distribution Skin thinning texture shiny appearance diffuse hyperpigmentation bilaterally pedal hair decreased BIOMECHANICS: Ankle ROM WNL, STJ ROM wnl, MTJ ROM wnl, 1st MPJ ROM track bound bunion formed bilateral semireducible hammertoe contractures with crepitation range of motion of digits. IMAGING: IMPRESSION: 1. Dermatophytosis of nail 2. Type 1 diabetes mellitus with hypoglycemia without coma (CMS/HCC V24, CMS/HCC V28) 3. Type 1 diabetes mellitus with mononeuropathy (CMS/HCC V24, CMS/HCC V28) 4. Pain in toe of right foot 5. Pain in toe of left foot PLAN: Pt was seen and examined, history reviewed. Discussed with patient regarding proper glucose control, exercise, and diet. Explained to patient proper shoe gear, and importance of daily foot checks. I reviewed neuropathy and why it occurs in diabetics. I educated the patient on proper blood sugar control and the importance of an HgBA1c of less than 7.0%. I reviewed the signs and symptoms of neuropathy with the patient Pt to return for another evaluation in 3 months. Debridement of mycotic toenails 6-10: Verbal informed consent was obtained from the patient. Greater than 6 nails were aseptically debrided in thickness and length with nail nippers Luciano Smith DPM documented in this encounter Plan of Treatment Upcoming Encounters Date Type Department Care Team (Late st Contact Info) Description 12/08/2024 10:00 AM EDT Office Visit Orthopedic Surgery - [place] [address] [phone] Luciano Smith DPM [address] [address] documented as of this encounter Visit Diagnoses Diagnosis Dermatophytosis of nail- Primary Type 1 diabetes mellitus with hypoglycemia without coma (CMS/[facility] V24, CMS/[facility] V28) Type 1 diabetes mellitus with mononeuropathy (CMS/HCC V24, CMS/HCC V28) Type I (juvenile type) diabetes mellitus with neurological manifestations, not stated as uncontrolled Pain in toe of right foot Pain in soft tissues of limb Pain in toe of left foot Pain in soft tissues of limb Acquired hammer toe of right foot Hammer toe of left foot Acquired hallux valgus of left foot Acquired hallux valgus of right foot documented in this encounter Orders Outpatient Referral Count Last Ordered Date Fir st Ordered Date AMB REFERRAL TO PODIATRY 1 09/02/2024 documented in this encounter Care Teams Track Maintainer Relationship Specialty Start Date End Date Pascual Darnell MD 230 [place] [address] PCP - General Internal Medicine 06/18/24 documented as of this encounter
--- OUTSIDE RECORDS SUMMARY | 2024-09-07 11:17 | XMS_ITS | Clinical Summary ---
Author Organization [address] [place] [address] Address 175 [place] [address] Phone Care Team Providers Care Toy Department Manager Name Role Phone Pascual Darnell MD Primary Care Provi chio Allergies Active Allergy Reactions Criticality Noted Date Comments Clonazepam 09/02/2024 Medications No known medications Encounters Date Type Department Care Team Description 09/02/2024 10:30 AM EDT Consult Orthopedic Surgery [facility] 250 175 [facility] 250 [place] [address] Luciano Simth, DPM Dermatophytosis of nail (Primary Dx); Type 1 diabetes mellitus with hypoglycemia without coma (CMS/HCC V24, CMS/HCC V28); Type 1 diabetes mellitus with mononeuropathy (CMS/HCC V24, CMS/HCC V28); Pain in toe of right foot; Pain in toe of left foot; Acquired hammer toe of right foot; Hammer toe of left foot; Acquired hallux valgus of left foot; Acquired hallux valgus of right foot from Last 3 Months Social History Tobacco Use Types Packs/Day Years Used Date Smoking Tobacco: Never Assessed Comments Unknown Sex and Gender Information Value Date Recorded Sex Assigned at Not on file Legal Sex Female 1:35 PM EDT Gender Identity Not on file Sexual Orientation Not on file Last Filed Vital Signs Vital Sign Reading Time Taken Comments Blood Pressure - - Pulse - - Temperature - - Respiratory Rate - - Oxygen Saturation - - Inhaled Oxygen Concentration - - Weight 79.4 kg (175 lb) 09/02/2024 10:46 AM EDT Height 149.9 cm (4' 11 ) 09/02/2024 10:46 AM EDT Body Mass Index 35.35 09/02/2024 10:46 AM EDT Plan of Treatment Upcoming Encounters Date Type Department Care Team (Late st Contact Info) Description 12/08/2024 10:00 AM EDT Office Visit Orthopedic Surgery - [place] 250 175 [facility] [address] [place] [address] Luciano Smith, DPM 175 [facility] 250 [place] [address] Health Maintenance Due Date Last Done Comments Breast Cancer Screening 1950 Diabetes: Annual Foot Exam 02/08/1960 Diabetes: Annual Retina Eye Exam 02/08/1960 DTaP,Tdap,and Td Vaccines (4 - Td or Tdap) 09/25/2023 09/24/2013, 02/22/2003, 08/21/1992 Colorectal Cancer Screening: Colonoscopy 11/21/2023 Falls Risk Assessment 11/21/2023 Medicare Annual Wellness Visit 11/21/2023 Osteoporosis Screening (Bone Density Screening) 11/21/2023 Social Influencers of Health Screening 11/21/2023 COVID-19 Vaccine ( season) 2023 04/18/2022, 09/04/2021, 03/05/2021, Additional history exists Diabetes: Annual Urine Albumin-Creatinine Ratio (uACR) 06/18/2024 Depression Screening 01/28/2025 01/29/2024 Diabetes: Blood Sugar Control Test (HGBA1C) 02/11/2025 08/12/2024 Diabetes: Annual GFR (Glomerular Filtration Rate) 08/16/2025 08/16/2024 Hypertension/CHF/CAD Annual BMP Blood Test 08/16/2025 08/16/2024 Cholesterol Screening (Lipid Panel) 08/16/2029 08/16/2024 MMR Vaccines Aged Out 11/21/1997 No longer eligi ble based on patient's age to complete this topic Zoster Vaccines Completed 03/17/2019, 12/21, 09/08/2014 Hepatitis C Screening Completed 01/15/2023 Pneumococcal Vaccine: 50+ Years Completed 06/12/2023, 04/25/2015, 04/25/2015, Additional history exists RSV Immunization Adult Patients Completed 06/12/2023 Influenza Vaccine Completed 02/19/2024, , [...] to complete this topic RSV Immunization Patients Under 20 months Aged Out No longer eligible based on patient's age to complete this topic Varicella Vaccines Aged Out No longer eligible based on patient's age to complete this topic Insurance [employer] MEDICARE Member Subscriber Plan / Payer (Ef fective 2015-Present) Name:Brandie Santana Relation to Subscriber:Self Name:Brandie Santana Payer ID:[id number] Group ID:[id number] Type:Not on file Address: [place] [address] [place] [phone] Care Teams Toy Department Manager Relationship Specialty Start Date End Date Pascual Darnell MD [address] [place] [address] PCP - General Internal Medicine 06/18/24
--- OUTSIDE RECORDS SUMMARY | 2024-09-07 11:17 | XMS_ITS | Encounter Summary ---
Author Organization [employer] Address 75 [facility] 7t [place] [address] Care Team Providers Care Vehicle Operator Technician Name Role Phone Pascual Daly MD Primary Care Provide r Fani Heck PharmD Unavailable + Dasia Waters PharmD Unavailable [phone] Reason for Visit * Reason Comments Med Refill Encounter Details Date Type Department Care Team (Late st Contact Info) Description 07/20/2023 Refill [facility] [address] [place] [address] Titi Gray FNP Major depressive disorder with [...] Description 09/15/2024 10:00 AM EDT Medication Management [facility] [address] [place] [address] 09/16/2024 9:30 AM EDT Office Visit [facility] 230 [place] [address] Christian Winchester DDS [address] [place] [address] 10/28/2024 10:30 AM EDT Clinical Support [facility] 505 [place] [address] Amanda Fernández, AALIYAH 505 [place] [address] 11/16/2024 11:15 AM EDT Office Visit [facility] [address] [place] [address] Pascual Daly MD [address] [place] [address] 02/17/2025 10:00 AM EDT Office Visit [facility] [address] [place] [address] Gabriela Gaitan 230 [place] [address] documented as of this encounter Goals Goal [...] documented as of this encounter Care Teams Vehicle Operator Technician Relationship Specialty Start Date End Date Pascual Daly MD 230 [place] [address] PCP - General Internal Medicine 02/22/14 Fani Heck, KristiD 230 [place] [address] Pharmacist Internal Medicine 12/16/22 08/15/24 Dasia Waters PharmD 230 [place] [address] Pharmacist Internal Medicine 08/16/24 documented as of this encounter
--- OUTSIDE RECORDS SUMMARY | 2024-09-07 11:17 | XMS_ITS | Encounter Summary ---
Author Organization [employer] Address 75 [facility] 7t [place] [address] Care Team Providers Care Story Analyst Name Role Phone Pascual Daly MD Primary Care Provide r Fani Heck PharmD Unavailable [phone] Dasia Waters PharmD Unavailable [phone] Reason for Visit * Reason Comments Med Refill Encounter Details Date Type Department Care Team (Late Contact Info) Description 10/02/2022 Refill [facility] [address] [place] [address] Titi Gray FNP Major depressive disorder with [...] EDT Medication Management [facility] [address] [place] [address] 09/16/2024 9:30 AM EDT Office Visit [facility] 230 [place] [address] Christian Winchester DDS [address] [place] [address] 10/28/2024 10:30 AM EDT Clinical Support [facility] 505 [place] [address] Amanda Fernández, RN 505 [place] [address] 11/16/2024 11:15 AM EDT Office Visit [facility] [address] [place] [address] Pascual Daly MD 230 [place] [address] 02/17/2025 10:00 AM EDT Office Visit [facility] [address] [place] [address] Gabriela Gaitan [address] [place] [address] documented as of this encounter Goals Goal [...] documented as of this encounter Care Teams Story Analyst Relationship Specialty Start Date End Date Pascual Daly MD [address] [place] [address] PCP - General Internal Medicine 02/22/14 Fani Heck, PharmD [address] [place] [address] Pharmacist Internal Medicine 12/16/22 08/15/24 Dasia Waters, KristiD [address] [place] [address] Pharmacist Internal Medicine 08/16/24 documented as of this encounter
--- OUTSIDE RECORDS SUMMARY | 2024-09-07 11:17 | XMS_ITS | Encounter Summary ---
Author Organization [employer] Address 75 [facility] [address] 7t [place] [address] Care Team Providers Care Precinct Captain Name Role Phone Pascual Daly MD Primary Care Provide r Fani Heck PharmD Unavailable [phone] Dasia Waters PharmD Unavailable [phone] Encounter Details Date Type Department Care Team (Late st Contact Info) Description 09/25/2023 Telephone [facility] [address] [place] [address] Pascual Daly MD 230 [place], [place] [phone] Social History Tobacco Use Types Packs/Day Years [...] EDT Medication Management [facility] [address] [place] [address] 09/16/2024 9:30 AM EDT Office Visit [facility] [address] [place] [address] Christian Winchester DDS [address] [place] [address] 10/28/2024 10:30 AM EDT Clinical Support [facility] 505 [place] [address] Amanda Fernández, AALIYAH 505 [place] [address] 11/16/2024 11:15 AM EDT Office Visit [facility] [address] [place] [address] Pascual Daly MD [address] [place] [address] 02/17/2025 10:00 AM EDT Office Visit [facility] 230 [place] [address] Gabriela Gaitan [address] [place] [address] documented as of this encounter Goals Goal Patient Goal Type Associated Problems Recent Progress Patient-Stated? Author Blood Pressure < 140/90 Blood Pressure 142/72( 025 12:49 PM EDT) No Fani Heck, KristiD documented as of this encounter Visit Diagnoses Diagnosis Type 2 diabetes mellitus without complication, with long-term current use of insulin ([facility]) documented in this encounter Additional Health Concerns Assessment Noted Time PHQ-9 Depression Total Score: 11 024 10:24 AM EST documented as of this encounter Care Teams Precinct Captain Relationship Specialty Start Date End Date Pascual Daly MD [address] [place] [address] PCP - General Internal Medicine 02/22/14 Fani Heck, PharmD [address] [place] [address] Pharmacist Internal Medicine 12/16/22 08/15/24 Dasia Waters PharmD [address] [place] [address] Pharmacist Internal Medicine 08/16/24 documented as of this encounter
--- OUTSIDE RECORDS SUMMARY | 2024-09-07 11:17 | XMS_ITS | Data Portability ---
Author Organization [facility], Main Office Address [address], [address] [place] [address] Care Team Providers Care Sql Report Analyst Name Role Phone MARII MASSEY Primary Care Provider [facility] F[facility] OTHER Assessment No assessment recorded. Plan of Treatment Reminders Order Date Submit Date Provider Last Modified By Organization Details Last Modified Time Details Appointments None recorded. Lab None recorded. Referral None recorded. Procedures None recorded. Surgeries None recorded. Imaging None recorded. Medication Orders oxycodone 5 mg tablet 2023 024 [facility] , [address] [place] [address], [address], 4 21:23:28 oxycodone 5 mg tablet 2023 024 [facility] , [address] [place] [address], [address], 4 13:28:18 Patient TargetsNo targets recorded. Patient InstructionsNo instructions recorded. Reason for Referral None Reported. Problems Name Problem SNOMED Code Status Onset Date Resolution Date Notes Provider Name and Address Organization Details Recorded Time Type 1 diabetes mellitus 79007801 Active 2023 Dori Pena NP [address] [facility], [address], [place], [address], [facility] [employer] 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 4 15:49:21 Hypertensive disorder 80337345 Active 2023 Dori Pena NP [address], [address], [place], [address], [facility] 4 15:49:57 Gastroesophage al reflux disease 924421629 Active 2023 Dori Pena NP [address], [address], [place], [address], [place] [facility] 4 15:51:24 Rheumatoid arthritis 77239358 Active 2023 Dori Pena NP [address], [address], [place], [address], [facility] 4 15:51:29 Mixed anxiety and depressive disorder 282271899 Active 2023 Dori Pena NP [address], [address], [place], [address], [place] [facility] 4 15:51:45 Obesity 967513850 Active 2023 Dori Pena NP [address], [address], [place], [address], [facility] 4 15:51:51 Closed flail chest 813450227 Active 2023 Dori Pena NP [address], [place], [address], [facility] 4 15:52:35 Asthenia 93783751 Active 2023 Dori Pena NP [address], [address], [place], [address], [facility] 4 15:52:46 Irritable bowel syndrome 70943354 Active 2023 Dori Pena NP [address], [place], [address], [facility] 4 16:06:46 Recurrent falls 137486497 Active 2023 Dori Pena NP [address], [place], [address], [facility] 4 16:38:03 Problem Notes None recorded. Procedures Surgical History Date Name Laterality Status Provider Name and Address Organization Details Recorded Time bypass gastroenterostomy completed Dori Pena NP [address] [facility], [address], [place], [address], [facility] 09/17/2023 15:40:41 Laparoscopic cholecystectomy completed Dori Pena NP [address] [facility], [address], [place], [address], [facility] 09/17/2023 15:41:25 fixed suspension procedure of urinary bladder neck completed Dori Pena NP [address] [facility], [address], [place], [address], [facility] 09/17/2023 15:42:01 Appendectomy completed Dori Pena NP [address] [facility], [address], [place], [address], [facility] 09/17/2023 15:42:11 bilateral cataract surgery completed Dori Pena NP [address] [facility], [address], [place], [address], [facility] 09/17/2023 15:42:26 Imaging Results None recorded. Procedure Notes None recorded. Medical Equipment None Reported. Allergies Allergen ID Allergen Name Allergen Category Reaction Reaction Severity Criticality Documentation Date Start Date Code Code System Note Provider Name and Address Organization Details Recorded Time 29276 celecoxib medicatio n other Not available unabletoasse 09/17/2023 28632 7 RxNorm unkno wn Dori Pena NP [address] [facility], [address], [place], [address], [facility] 4 15:37:14 46432 lorazepam medicatio n other Not available unabletoasse 09/17/2023 6470 RxNorm unkno wn Dori Pena NP [address] [facility], [address], [place], [address], [facility] 4 15:37:29 68109 tramadol medicatio n other Not available unabletoasse 09/17/2023 45169 RxNorm unkno wn Dori Pena NP [address] [facility], [address], [place], [address], [employer] [facility] 4 15:37:42 77249 zolpidem medicatio n other Not available unabletoasse 09/17/2023 56625 RxNorm unkno wn Dori Pena NP [address] [facility], [address], [place], [address], [employer] 4 15:37:56 Medications Name Sig Start Date Stop Date [...] Address Organization Details Last Updated DateTime 4 61896.7 8 g 98 /min 18 /min 97.8 [degF] 94 % 94 % 150 mm[Hg] 77 mm[Hg] Dori Pena NP [address] [facility], [address], [place], [address] , [employer] 4 10:49:41 Date Recorded Body weight Heart rate Respiratory rate Body temperature Oxygen saturation Oxygen saturation in Arterial blood by Pulse oximetry Systolic blood pressure Diastolic blood pressure Provider Name and Address Organization Details Last Updated DateTime 4 42903.7 8 g 83 /min 18 /min 97 [degF] 98 % 98 % 148 mm[Hg] 74 mm[Hg] Dori Pena NP [address] [facility], [address], [place], [address] , [employer] 4 13:29:12 Date Recorded Body weight Heart rate Respiratory rate Body temperature Oxygen saturation Oxygen saturation in Arterial blood by Pulse oximetry Systolic blood pressure Diastolic blood pressure Provider Name and Address Organization Details Last Updated DateTime 4 55272.7 8 g 76 /min 18 /min 97.8 [degF] 97 % 97 % 128 mm[Hg] 78 mm[Hg] Dori Pena NP [address] [facility], [address], [place], [address], [facility] 4 12:05:35 Date Recorded Body weight Heart rate Respiratory rate Body temperature Oxygen saturation Oxygen saturation in Arterial blood by Pulse oximetry Systolic blood pressure Diastolic blood pressure Provider Name and Address Organization Details Last Updated DateTime 4 42747 g 80 /min 18 /min 98 [degF] 95 % 95 % 111 mm[Hg] 60 mm[Hg] Dori Pena NP [address] [facility], [address], [place], [address], [facility] 4 11:40:36 Date Recorded Body weight Heart rate Respiratory rate Body temperature Oxygen saturation Oxygen saturation in Arterial blood by Pulse oximetry Systolic blood pressure Diastolic blood pressure Provider Name and Address Organization Details Last Updated DateTime 4 47901 g 74 /min 18 /min 98.4 [degF] 95 % 95 % 124 mm[Hg] 68 mm[Hg] Dori Pena NP [address] [facility], [address], [place], [address], [facility] 4 13:12:09 Social History Question Answer Notes LastModified by Organizat ion Details LastModified Time Tobacco Smoking Status Never Smoker Dori Pena NP [address] [facility], [address], [place], [address], [facility] 09/17/2023 15:39:38 Do You Have An Advance Directive? No Information not available 09/17/2023 What Is Your Code Status? Full Code Information not available 09/17/2023 What Was The Date Of Your Most Recent Tobacco Screening? 09/17/2023 Information not available 09/17/2023 Do You Have An Out Of Hospital DNR? No Information not available 09/17/2023 Has Tobacco Cessation Counseling Been Provided? No Information not available 09/17/2023 Sex: Unknown Functional Status Question Answer Note LastModified by Organizat ion Details LastModified Time Do you use any illicit or recreational drugs? No Information not available 09/17/2023 Do you or have you ever used any other forms of tobacco or nicotine? No Information not available 09/17/2023 What is your level of alcohol consumption? None Information not available 09/17/2023 Mental Status None recorded. Family History Nothing Reported Notes:mother cva si ster htn brother htn, liver ca Medical History No medical history recorded. Gynecological HistoryNo gynecological history recorded. Obstetrics History GPAL:G 0 P 0 0 0 0 Immunizations Vaccine Type Date Status Note Provider Nam e and Address Organization Details Recorded Time Respiratory syncytial virus (RSV) vaccine, unspecified 4 completed Radha Jerman [facility] 09/19/2023 16:11:12 Tdap 4 completed Radha Jerman [facility] 09/19/2023 16:11:26 Td(adult) unspecified formulation 3 completed Radha Jerman [facility] 09/19/2023 16:11:43 Td(adult) unspecified formulation 3 completed Radha Jerman [facility] 09/19/2023 16:11:51 Pneumococcal conjugate PCV 13 6 completed Radha Jerman [facility] 09/19/2023 16:12:53 Pneumococcal conjugate PCV20, polysaccharide [id number] conjugate, adjuvant, PF 4 completed Radha Jerman [facility] 09/19/2023 16:13:07 pneumococcal polysaccharide PPV23 1 completed Radha Jerman [facility] 09/19/2023 16:13:22 pneumococcal polysaccharide PPV23 4 completed Radha Jerman [facility] 09/19/2023 16:13:31 influenza, unspecified formulation 2 completed Radha Jerman [facility] 09/19/2023 16:13:47 influenza, unspecified formulation 3 completed Radha Stoll [facility] 09/19/2023 16:13:55 MMR 8 completed Radha Jerman [facility] 09/19/2023 16:14:21 SARS-COV-2 (COVID-19) vaccine, UNSPECIFIED 1 completed Radharos Stoll [facility] 09/19/2023 16:15:58 SARS-COV-2 (COVID-19) vaccine, UNSPECIFIED 1 completed Radha [facility] 09/19/2023 16:16:13 SARS-COV-2 (COVID-19) vaccine, UNSPECIFIED 1 completed Radharos Stoll [facility] 09/19/2023 16:16:27 SARS-COV-2 (COVID-19) vaccine, UNSPECIFIED 2 completed Radha [facility] 09/19/2023 16:17:15 SARS-COV-2 (COVID-19) vaccine, UNSPECIFIED 2 completed [facility] 09/19/2023 16:21:38 zoster, unspecified formulation 5 completed [facility] 09/19/2023 16:23:04 zoster, unspecified formulation 9 completed [facility] 09/19/2023 16:23:18 zoster, unspecified formulation 9 completed [facility] 09/19/2023 16:25:18 Past Encounters Encounter ID Performer Location Encounter Start Date Encounter Closed Date Diagnosis/Indication Diagnosis SNOMED-CT Code Diagnosis ICD10 Code Diagnosis Note [id number] Dori Pena NP [address] [address] 09/17/2023 15:22:09 09/23/2023 14:50:24 Closed flail chest 798393605 S22.5XXD with multiple rib fractures and clavicular fracturewa s evaluated by thoracic surgery and felt non operatable pain management oxycodone 5 mg po q 4hours prnoxycont in 10 mg po ER bidgabapen tin 100 mg po bidwean over next few weeksalbut edward 2 puff q 4-6 hours/29s ched duoneb qidrobitus sin 10 ml po [...] If stable no further workup needed. Asthenia 23220218 R53.1 with notable weakness due to injuryPT OT eval and treatsuppo rtive caremonito r Type 1 frank betes mellitus 42649842 E10.9 tresiba 30 unit sc qhsinsulin 2-14 SSI sc qidhsmonit or BS and adjust as needed Hypertensive disorder 38 038631 I10 not on meds for thisamlodi pine 10 mg po dailylosar zaragoza 100 mg po dailymonit or bp/vitals 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 898334 E06.3 levothyrox ine 112 mcg dailymonit or tsh as needed Gastroesop hageal reflux disease 324903532 K21.9 esomeprazo le 40 mg o daily Obesity 997557851 E66.9 roof slater to consultsup portive careportio n controlmon itor weight Mixed anxi ety and depressive disorder 014852023 F41.8 aripiprazo le 20 mg dailyvenla faxine 150 mg po dailyprazo sin 6 mg po qhsmelaton in 3 mg po qhshydroxy zine 10 mg po q 8 hours prn anxietyclo nazepam 0.5 mg po q 8 hours prn anxietycar vedilol 6.25 mg po bidmonitor Rheumatoid arthritis 698 75707 M06.9 enbrel 50 mg sc q 7dayscalci um citrate 400 mg po bidmonitor for reliefsee pain management above with flail chest Irritable bowel syndrome 18790555 K58.9 ? IBSlinzess 290 mcg q ammonitor Deficiency anemias 75094 3007 D53.9 folic acidvit [id number] Coronary arteriosclerosis 30485418 I25.10 hx of MIatorvast atin 20 mg po dailyclopi dogrel 75 mg po q amsee above htn medsmonito r Recurrent falls 67518746 2 R29.6 reports history of falls with log cooker at home to help her and balance issuesrepo rts more than 5 falls/year supportive caremonito r [id number] JESSICA HINDS, AAKASH [place] [address] [address] [place], [place] [address] 09/18/2023 13:29:08 09/23/2023 15:13:15 Closed flail chest 844714067 S22.5XXD with multiple rib fractures and clavicular [...] If stable no further workup needed. Asthenia 06925250 R53.1 with notable weakness due to injuryPT OT eval and treatsuppo rtive caremonito r Type 1 frank betes mellitus 11074893 E10.9 A1C 8.8%Contin eu:tresiba 30 unit sc qhsinsulin 2-14 SSI sc qidmonitor BS and adjust as needed Hypertensive disorder 38 323892 I10 amlodipine 10 mg po dailylosar zaragoza 100 mg po dailycoreg 6.25 mg bidmonitor bp/vitals 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 327349 E06.3 levothyrox ine 112 mcg dailymonit or tsh as needed Gastroesop hageal reflux disease 496331058 K21.9 esomeprazo le 40 mg o daily Deficiency anemias 64666 3007 D53.9 folic acidvit [id number] Obesity 243757964 E66.9 roof slater to consultsup portive careportio n controlmon itor weight Mixed anxi ety and depressive disorder 626398533 F41.8 aripiprazo le 20 mg dailyvenla faxine 150 mg po dailyprazo sin 6 mg po qhsmelaton in 3 mg po qhshydroxy zine 10 mg po q 8 hours prn anxietyclo nazepam 0.5 mg po q 8 hours prn anxietymon itor Rheumatoid arthritis 698 71737 M06.9 enbrel 50 mg sc q 7dayscalci um citrate 400 mg po bidmonitor for reliefsee pain management above with flail chest Irritable bowel syndrome 18179476 K58.9 ? IBSlinzess 290 mcg q ammonitor Coronary arteriosclerosis 17848088 I25.10 hx of MIatorvast atin 20 mg po dailyclopi dogrel 75 mg po q amsee above htn medsmonito r Recurrent falls 31633966 2 R29.6 reports history of falls with log cooker at home to help her and balance issuesrepo rts more than 5 falls/year supportive caremonito r [id number] Dori Pena NP [facility] [address] [address] 09/22/2023 14:27:57 09/29/2023 19:16:34 Closed flail chest 861997416 S22.5XXD with multiple rib fractures and clavicular [...] If stable no further workup needed. Asthenia 02262108 R53.1 with notable weakness due to injuryPT OT eval and treatsuppo rtive caremonito r Type 1 frank betes mellitus 19640496 E10.9 BS 81-252 dlhzpyT9N 8.8%contin ue:tresiba 30 unit sc qhsinsulin 2-14 SSI sc qidmonitor BS and adjust as needed Hypertensive disorder 38 403607 I10 improving lately, boderline highcontam lodipine 10 mg po dailylosar zaragoza 100 mg po dailycoreg 6.25 mg bidmonitor bp/vitals 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 815092 E06.3 contlevoth yroxine 112 mcg dailymonit or tsh as needed Gastroesop hageal reflux disease 517840750 K21.9 esomeprazo le 40 mg o daily Deficiency anemias 40912 3007 D53.9 folic acidvit f76nlqflhx Obesity 054433001 E66.9 roof slater to consultsup portive careportio n controlmon itor weight Mixed anxi ety and depressive disorder 839501708 F41.8 contaripip razole 20 mg dailyvenla faxine 150 mg po dailyprazo sin 6 mg po qhsmelaton in 3 mg po qhshydroxy zine 10 mg po q 8 hours prn anxietyclo nazepam 0.5 mg po q 8 hours prn anxietymon itor Rheumatoid arthritis 698 96498 M06.9 enbrel 50 mg sc q 7dayscalci um citrate 400 mg po bidmonitor for reliefsee pain management above with flail chest Irritable bowel syndrome 09362861 K58.9 ? IBSlinzess 290 mcg q ammonitor Coronary arteriosclerosis 06357120 I25.10 hx of MIatorvast atin 20 mg po dailyclopi dogrel 75 mg po q amsee above htn medsmonito r Recurrent falls 57914327 2 R29.6 reports history of falls with log cooker at home to help her and balance issuesrepo rts more than 5 falls/year supportive caremonito r Acute cystitis 59678825 N30.00 reports dysuria and occassiona l incontinen ce latelyurin e culture returned showing > 100,000 klebsiella pneumo ssp and started on ceftriaxon e 1gram IM and cefpodoxim e 200 mg po bid x 7 days with probiotic by on provider over the weekend.mo nitor [id number] Jonel Alamo MD [address] [address] 09/23/2023 11:01:43 09/29/2023 19:25:59 Closed fracture of multiple left ribs 5694492392 2387066 S22.42XG see HPIleft rib fxs 2-6 with concern for flail chest , with clavicular fxeval by surgery with no interventi on indicatedm onitor respirator y statusutil ize incentive spirometer monitor for pain controlupd ate surgery with concerns Asthenia 05945576 R53.1 PT OT eval and treatmonit or need for increased support in community Type 1 frank betes mellitus 98289653 E10.9 tresiba 30 units qdSS insulinmon itor glucose and need to titrate Hypertensive disorder 38 709573 I10 norvasc 10 mg qdcoreg 6.25 mg bidlosarta n 100 mg qdcurrentl y elevatedmo nitor need for increased control 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 751516 E06.3 hx of added to PMHmaintai priscilla onsynthroi d 112 mcg qdmonitor tsh prn Gastroesop hageal reflux disease 673947221 K21.9 nexium 40 mg qd continuedm onitor for effect Obesity 068141828 E66.09 dietary eval in patient with baseline DM Mixed anxi ety and depressive disorder 873550525 F41.8 carrying dx requiring multiple medication swill continue out patient medication s includinga bility and ativanmoni tor moodpsych eval prn Rheumatoid arthritis 698 57834 M06.9 remains onenbrel 50 mg q friday Irritable bowel syndrome 67690489 K58.9 ? IBSlinzess 290 mcg q ammonitor Coronary arteriosclerosis 20356194 I25.10 hx of MIatorvast atin 20 mg po dailyclopi dogrel 75 mg po q amsee above htn medsmonito r Recurrent falls 80065768 2 R29.6 reports history of falls with log cooker at home to help her and balance issuesrepo rts more than 5 falls/year supportive caremonito r Solitary n odule of lung 961972320 R91.1 question right 4 mm upper lobe nodulecons ider repeat scan in 6-12 months Primary insomnia 9762066 F51.01 continue melatoninm onitor need to titrate Abnormal weight loss 267 003884 R63.4 weight dropped > 12 lbs in a few days from admitappea rs to be error in initial intake weightwill monitor Acute cystitis 46811466 N30.00 now on cefpodoxim e to complete coursemoni tor for recurrent disease [id number] Dori Pena NP [address] [address] 09/24/2023 09:21:20 09/29/2023 19:39:42 Closed fracture of multiple left ribs 3209328587 7750147 S22.42XG with multiple rib fractures and clavicular [...] in am off pmadjust as needed. Asthenia 63181580 R53.1 PT OT eval and treatmonit or need for increased support in community Type 1 frank betes mellitus 04688392 E10.9 BS controlled conttresib a 30 units qdSS insulinmon itor glucose and need to titrate Hypertensive disorder 38 145223 I10 stable on below regimennor vasc 10 mg qdcoreg 6.25 mg bidlosarta n 100 mg qdcurrentl y elevatedmo nitor need for increased control 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 982668 E06.3 hx of added to PMHmaintai priscilla onsynthroi d 112 mcg qdmonitor tsh prn Gastroesop hageal reflux disease 349381874 K21.9 nexium 40 mg qd continuedm onitor for effect Obesity 190715103 E66.09 dietary eval in patient with baseline DM Rheumatoid arthritis 698 48725 M06.9 remains onenbrel 50 mg q friday Irritable bowel syndrome 75507611 K58.9 ? IBSlinzess 290 mcg q ammonitor Coronary arteriosclerosis 46432238 I25.10 hx of MIatorvast atin 20 mg po dailyclopi dogrel 75 mg po q amsee above htn medsmonito r Recurrent falls 58442357 2 R29.6 reports history of falls with log cooker at home to help her and balance issuesrepo rts more than 5 falls/year supportive caremonito r Primary insomnia 9269148 F51.01 continueme latoninmon itor need to titrate Abnormal weight loss 267 464462 R63.4 weight dropped > 12 lbs in a few days from admitappea rs to be error in initial intake weight6/5 reweigh pt todaywill monitor Acute cystitis 06085287 N30.00 now on cefpodoxim e to complete courseaysm ptomaticmo nitor for recurrent disease [id number] Dori Pena NP [facility] [address] 09/29/2023 10:39:23 10/03/2023 11:24:38 Closed fracture of multiple left ribs 6195804233 7182151 S22.42XG with multiple rib fractures and clavicular [...] topically left chest on in am off pm610 add muscle rub cream bid to left shoulderad just as needed. Asthenia 75845455 R53.1 PT OT eval and treatmonit or need for increased support in community Type 1 frank betes mellitus 45209302 E10.9 BS controlled conttresib a 30 units qdSS insulinmon itor glucose and need to titrate Hypertensive disorder 38 864678 I10 stable on below regimen with slightly high bp likley related to pain, monitorcon tnorvasc 10 mg qdcoreg 6.25 mg bidlosarta n 100 mg qdcurrentl y elevatedmo nitor need for increased control 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 532682 E06.3 hx of added to PMHmaintai priscilla onsynthroi d 112 mcg qdmonitor tsh prn Gastroesop hageal reflux disease 613153574 K21.9 contnexium 40 mg qdmonitor for effect Obesity 330819854 E66.09 dietary evalbaseli ne DMweight today please Rheumatoid arthritis 698 86692 M06.9 remains onenbrel 50 mg q friday Irritable bowel syndrome 45340243 K58.9 ? IBSlinzess 290 mcg q ammonitor Coronary arteriosclerosis 04897913 I25.10 hx of MIatorvast atin 20 mg po dailyclopi dogrel 75 mg po q amsee above htn medsmonito r Recurrent falls 99693140 2 R29.6 reports history of falls with log cooker at home to help her and balance issuesrepo rts more than 5 falls/year supportive caremonito r Primary insomnia 2432070 F51.01 continueme latoninmon itor need to titrate Abnormal weight loss 267 750965 R63.4 weight dropped > 12 lbs in a few days from admitappea rs to be error in initial intake weight09/28 reweigh pt todaywill monitor Acute cystitis 95294037 N30.00 resolved cefpodoxim e to complete courseaysm ptomaticmo nitor for recurrent disease Mixed anxi ety and depressive disorder 395162911 F41.8 contaripip razole 20 mg dailyvenla faxine 150 mg po dailyprazo sin 6 mg po qhsmelaton in 3 mg po qhshydroxy zine 10 mg po q 8 hours prn anxiety6/1 0 renew clonazepam 0.5 mg po q 8 hours prn anxietymon itor [id number] Dori Pena NP [facility] [place] [address] 10/02/2023 13:28:32 10/07/2023 10:08:18 Hypertensive disorder 59179498 I10 stable on below regimen as it comes down to 120s systolic post medication contnorvas c 10 mg qdcoreg 6.25 mg bidlosarta n 100 mg qdmonitor need for increased control Closed fra cture of multiple left ribs 1969003435 7706910 S22.42XG with left rib fxs 2-6 with [...] OT eval and txadjust as needed. Asthenia 62650573 R53.1 PT OT eval and treatmonit or need for increased support in community Type 1 frank betes mellitus 39775120 E10.9 BS controlled glucernaco nttresiba 30 units qdSS insulinmon itor glucose and need to titrate Gastroesop hageal reflux disease 628404964 K21.9 contnexium 40 mg qdmonitor for effect Rheumatoid arthritis 698 33470 M06.9 remains onenbrel 50 mg q brittney Irritable bowel syndrome 25186908 K58.9 ? IBSlinzess 290 mcg q ammonitor Coronary arteriosclerosis 49267074 I25.10 hx of MIcoreg 6.25 mg po bidatorvas tatin 20 mg po dailyclopi dogrel 75 mg po q amsee above htn medsmonito r Recurrent falls 85898411 2 R29.6 reports history of falls with log cooker at home to help her and balance issuesrepo rts more than 5 falls/year supportive care and therapy here for balance, strengthen ing, gait, mobility, endurancem onitor Abnormal weight loss 267 655922 R63.4 weight dropped > 12 lbs in a few days from admitappea rs to be error in initial intake weight09/28 reweigh pt today10/01 reweight pt today, no weight since 09/21will monitor Mixed anxi ety and depressive disorder [id number] F41.8 contaripip razole 20 mg dailyvenla faxine 150 mg po dailyprazo sin 6 mg po qhsmelaton in 3 mg po qhshydroxy zine 10 mg po q 8 hours prn anxiety6/ 0 renew clonazepam 0.5 mg po q 8 hours prn anxiety x 14 days10/01 cont as abovemonit or [id number] Dori Pena NP [facility] [address] [address] 10/06/2023 12:02:36 10/09/2023 09:34:42 Closed fracture of multiple left ribs [id number] S22.42XG with left rib fxs 2-6 with [...] txadjust as needed. Abnormal weight loss 267 719745 R63.4 weight dropped > 12 lbs in a few days from admitappea rs to be error in initial intake weight10/04 160 lbs which is same as 09/22/23will monitor Hypertensive disorder 38 716364 I10 stable on below regimen as it comes down to 120s systolic post medication contnorvas c 10 mg qdcoreg 6.25 mg bidlosarta n 100 mg qdmonitor need for increased control Asthenia 34002070 R53.1 PT OT eval and treatmonit or need for increased support in community Type 1 frank betes mellitus 71759878 E10.9 pt having syrup and gingerale at [...] and need to titrate Rheumatoid arthritis 698 16360 M06.9 remains onenbrel 50 mg q friday Irritable bowel syndrome 60051340 K58.9 with constipati on today, states many days10/05 mon given today, will do supp if no bm by 4 pm10/05 start senna 8.6 mg po daily? IBSlinzess 290 mcg q ammonitor Coronary arteriosclerosis 48024956 I25.10 hx of MIcoreg 6.25 mg po bidatorvas tatin 20 mg po dailyclopi dogrel 75 mg po q amsee above htn medsmonito r Mixed anxi ety and depressive disorder 956069112 F41.8 contaripip razole 20 mg dailyvenla faxine 150 mg po dailyprazo sin 6 mg po qhsmelaton in 3 mg po qhshydroxy zine 10 mg po q 8 hours prn anxiety6/ 0 renew clonazepam 0.5 mg po q 8 hours prn anxiety x 14 days10/01 cont as above10/05 stable today with above planmonito r [id number] Dori Pena NP [address] [address] 10/08/2023 11:40:06 10/15/2023 15:50:32 Type 1 diabetes mellitus 28088493 E10.9 pt having syrup and gingerale at [...] and need to titrate Irritable bowel syndrome 18109076 K58.9 with constipati on resolved with mom on 7 mon given today10/05 start senna 8.6 mg po daily? IBSlinzess 290 mcg q am10/07 having bm regularly nowmonitor Closed fra cture of multiple left ribs [id number] 2091280 S22.42XG with left rib fxs 2-6 with [...] txadjust as needed. Abnormal weight loss 267 956270 R63.4 weight dropped > 12 lbs in a few days from admitappea rs to be error in initial intake weight10/04 160 lbs which is same as 09/22/23, ? incorrect admit weight but seems stable nowvtll monitor Hypertensive disorder 38 563385 I10 stable on below regimen as it comes down to 120s systolic post medication contnorvas c 10 mg qdcoreg 6.25 mg bidlosarta n 100 mg qdmonitor need for increased control Asthenia 57764436 R53.1 PT OT eval and treatmonit or need for increased support in community Rheumatoid arthritis 698 36049 M06.9 remains onenbrel 50 mg q friday Coronary arteriosclerosis 97681712 I25.10 hx of MIcoreg 6.25 mg po bidatorvas tatin 20 mg po dailyclopi dogrel 75 mg po q amsee above htn medsmonito r Mixed anxi ety and depressive disorder 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 F41.8 contaripip razole 20 mg dailyvenla faxine 150 mg po dailyprazo sin 6 mg po qhsmelaton in 3 mg po qhshydroxy zine 10 mg po q 8 hours prn anxiety6/ 0 renew clonazepam 0.5 mg po q 8 hours prn anxiety x 14 days10/01 cont as above10/05 stable today with above plan10/07 stable today with above planmonito r Hyperkalemia 60711960 E8 7.5 k of 5.7 on give kayexalate 15 gm today10/08 bmp in ammonitor for additional e lyte abbormalit ies [id number] [facility] [address] [facility] [address] 10/09/2023 13:08:06 10/15/2023 16:27:22 Closed fracture of multiple left ribs [id number] 1277265 S22.42XG resolving with left rib fxs 2-6 [...] prnadjust as needed outpt with pcp Hyperkalemia 16192448 E8 7.5 k of 5.7 on give kayexalate 15 gm on 10/07monito r for additional e lyte abnormalit ies outpt with pcp Type 1 frank betes mellitus 42290797 E10.9 BS slightly high while at rehab with eating sugary foods/drin ksPlan: diet sodas and diet syrup and less sugary choicescon tglucernat resiba 30 units qdSS insulin with meals as per home schedmonit or glucose and need to titrate outpt with pcp outpt Irritable bowel syndrome 81007030 K58.9 with constipati on resolvedse nna 8.6 mg po daily (started at rehab)? IBSlinzess 290 mcg q ammonitor with pcp outpt Abnormal weight loss 267 517391 R63.4 weight dropped > 12 lbs in a few days from admitappea rs to be error in initial intake weight10/04 160 lbs which is same as 09/22/23, ? incorrect admit weight but seems stable nowmonitor oupt with pcp Hypertensive disorder 38 860196 I10 stable on below regimen as it comes down to 120s systolic post medication contnorvas c 10 mg qdcoreg 6.25 mg bidlosarta n 100 mg qdmonitor need for increased control outpt with pcp Asthenia 13291585 R53.1 PT OT eval and treat outpt prnmonitor need for increased support in community with pcp Rheumatoid arthritis 698 40818 M06.9 remains onenbrel 50 mg q fridaymoni tor outpt with pcp Coronary arteriosclerosis 13282327 I25.10 hx of MIcoreg 6.25 mg po bidatorvas tatin 20 mg po dailyclopi dogrel 75 mg po q amsee above htn medsmonito r outpt wtih pcp Mixed anxi ety and depressive disorder 128103816 F41.8 contaripip razole 20 mg dailyvenla faxine 150 mg po dailyprazo sin 6 mg po qhsmelaton in 3 mg po qhshydroxy zine 10 mg po q 8 hours prn anxietyclo nazepam 0.5 mg po q 8 hours prn anxietymon itor outpt with pcp Gastroesop hageal reflux disease 820251223 K21.9 contnexium 40 mg qdmonitor for effect outpt with pcp Recurrent falls 07175635 2 R29.6 reports history of falls with log cooker at home to help her and balance issuesrepo rts more than 5 falls/year supportive care and therapy here for balance, strengthen ing, gait, mobility, endurance outpt rpnmonitor outpt with pcp 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 408101 E06.3 hx of added to PMHmaintai priscilla onsynthroi d 112 mcg qdmonitor tsh prn with pcp Obesity 710198954 E66.09 dietary evalbaseli ne DMweight to be monitored with pcp outpt Primary insomnia 5878043 F51.01 continueme latoninmon itor need to titrate outpt Acute cystitis 53393584 N30.00 resolved cefpodoxim e to complete courseaysm ptomaticmo nitor for recurrent disease outpt with pcp Health Concerns Section Related Observation LastModified by Organization Detai ls LastModified Time None Recorded Concern Status LastModified by Organization Details LastModified Time None Recorded Advance Directives Directive N: Payers Encounter Date Sequence Insurance Name Policy Number Policy Patten Covered Member ID Patten Member ID Guarantor Name 09/29/2023 1 [employer] [employer] - DOS ON OR AFTER 2022 - MEDIC[place]AGE [place]V ANTAGE - PPO) Brandie Luevano [id number] Brandie Luevano 10/02/2023 1 [employer] - DOS ON OR AFTER 2022 - [place] - [place]PO) Brandie Luevano [id number] Brandie Luevnao 10/06/2023 1 [employer] [employer] - DOS ON OR AFTER 2022 - [place] - [place]PO) Brandie Luevano [id number] Brandie Luevano 10/08/2023 1 [employer] - DOS ON OR AFTER 2022 - [place] - [place]PO) Brandie Luevano [id number] Brandie Luevano 10/09/2023 1 [employer] - DOS ON OR AFTER 2022 - [place]V [place] - PPO) Brandie Luevano [id number] Brandie Luevano Notes Date Note Type Note [...] a cane usually Dori Pena NP [address] [facility], [address], [place], [address], [employer] 09/29/2023 11:09:33 10/02/2023 text/html Pt is seen [...] is sitting up in bed with her TRAIN CONTROLLER visiting. She has her sling in place [...] a cane usually Dori Pena NP [address] [facility], [address], [place], [address], [employer] 10/02/2023 13:48:50 10/06/2023 text/html Pt is seen for a n acute rounding visit. Brandie is working here at [facility] and is feeling good and more mobile lately with left sling in place. She continues with therapy and making gains. She was treated for a UTI when she first came to [facility] and denies any urinary symptoms. Nursing noted [...] a cane usually Dori Pena NP [address] [facility], [address], [place], [address], [employer] 10/06/2023 12:26:22 10/08/2023 text/html Pt is seen [...] in a sling for comfort. While at [facility]:She was treated for a UTI when she first came to [facility] and denies any urinary symptoms. Nursing noted [...] a cane usually Dori Pena NP [address] [facility], [address], [place], [address], [employer] 10/08/2023 12:05:52 10/09/2023 text/html Pt is seen [...] in a sling for comfort. While at [facility]:She was treated for a UTI when she first came to [facility] and denies any urinary symptoms. Nursing noted [...] a cane usually Dori Pena NP [address] [facility], [address], [place], [address], [employer] 10/09/2023 16:50:56 OBGyn Episode No OBEpisode recorded.
--- OUTSIDE RECORDS SUMMARY | 2024-09-07 11:17 | XMS_ITS | Encounter Summary ---
Author Organization [employer] Address [address] [facility] 7t [place] [address] Care Team Providers Care Brooch Maker Novelty Name Role Phone Pascual Daly MD Primary Care Provide r Dasia Waters PharmD Unavailable [phone] Reason for Visit * Reason Onset Date Comments Med Refill 08/31/2024 Encounter Details Date Type Department Care Team ([facility] st Contact Info) Description 08/31/2024 Refill [facility] [address] [place] [address] Amanda Fernández RN [address] [place] [address] Fibromyalgia Social History Tobacco Use Types Packs/Day [...] [facility] MEDICINE [address] [place] [address] 09/16/2024 9:30 AM EDT Office Visit [facility] ADULT DENTAL [address] [place] [address] Christian Winchester DDS [address] [place] [address] 10/28/2024 10:30 AM EDT Clinical Support [facility] CHC MED & PEDS [address] [place] [address] Amanda Fernández, AALIYAH [address] [place] [address] 11/16/2024 11:15 AM EDT Office Visit [facility] MEDICINE [address] [place] [address] Pascual Daly MD [address] [place] [address] 02/17/2025 10:00 AM EDT Office Visit [facility] ADULT DENTAL [address] [place] [address] Gabriela Gaitan [address] [place] [address] documented as of this encounter Goals Goal Patient Goal Type Associated Problems Recent Progress Patient-Stated? Author Blood Pressure < 140/90 Blood Pressure 142/72( 025 12:49 PM EDT) Fani Thomas, Woody documented as of this encounter Visit Diagnoses Diagnosis Fibromyalgia Unspecified myalgia and myositis documented in this encounter Additional Health Concerns Assessment Noted Time PHQ-9 Depression Total Score: 9 01/29/20 24 11:00 AM EDT documented as of this encounter Care Teams Brooch Maker Novelty Relationship Specialty Start Date End Date Pascual Daly MD [address] [place] [address] PCP - General Internal Medicine 02/22/14 Dasia Waters PharmD [address] [place] [address] Pharmacist Internal Medicine 08/16/24 documented as of this encounter
--- OUTSIDE RECORDS SUMMARY | 2024-09-07 11:17 | XMS_ITS | Encounter Summary ---
Author Organization [employer] Address [address] [facility] 7t [place] [address] Care Team Providers Care Overnight Caregiver Name Role Phone Pascual Daly MD Primary Care Provide r Fani Heck PharmD Unavailable [phone] Dasia Waters PharmD Unavailable [phone] Reason for Visit * Reason Comments Med Refill Encounter Details Date Type Department Care Team (Late st Contact Info) Description 08/26/2023 Refill [facility] [address] [place], [place] [phone] Momo Rizo MD [address] [place] [address] Benign hypertension Social History Tobacco Use Types [...] 10:00 AM EDT Medication Management [facility] [address] [place] [address] 09/16/2024 9:30 AM EDT Office Visit [facility] [address] [place] [address] Christian Winchester DDS [address] [place] [address] 10/28/2024 10:30 AM EDT Clinical Support [facility] MED & PEDS [address] [place] [address] Amanda Fernández, RN [address] [place] [address] 11/16/2024 11:15 AM EDT Office Visit [facility] [address] [place] [address] Pascual Daly MD [address] [place] [address] 02/17/2025 10:00 AM EDT Office Visit [facility] [address] [place] [address] Gabriela Gaitan [address] [place] [address] documented as of this encounter Goals Goal [...] documented as of this encounter Care Teams Overnight Caregiver Relationship Specialty Start Date End Date Pascual Daly MD [address] [place] [address] PCP - General Internal Medicine 02/22/14 Fani Heck, PharmD [address] [place] [address] Pharmacist Internal Medicine 12/16/22 08/15/24 Dasia Waters, KristiD [address] [place] [address] Pharmacist Internal Medicine 08/16/24 documented as of this encounter
--- OUTSIDE RECORDS SUMMARY | 2024-09-07 11:17 | XMS_ITS | Encounter Summary ---
Author Organization [employer] Address [address] [facility] 7t [place] [address] Care Team Providers Care Propeller Layout Worker Name Role Phone Pascual Daly MD Primary Care Provide r Dasia Waters PharmD Unavailable [phone] Reason for Visit * Reason Onset Date Comments Med Refill 08/31/2024 Encounter Details Date Type Department Care Team (Late st Contact Info) Description 08/31/2024 Telephone [facility] MEDICINE [address] [place] [address] Pascual Daly MD [address] [place], [place] [phone] Med Refill Social History Tobacco Use Types [...] encounter Miscellaneous Notes * Telephone Encounter - Hafsa Camacho - 08/31/2024 3:58 PM EDT TC from pt requesting medication refill. Medications needing refill : oxyCODONE (Roxicodone) 5 MG immediate release tablet To be sent to: [facility] documented in this encounter Plan of Treatment Upcoming Encounters Date Type Department Care Team ([facility] st Contact Info) Description 09/15/2024 10:00 AM EDT Medication Management [facility] MEDICINE [address] [place] [address] 09/16/2024 9:30 AM EDT Office Visit [facility] ADULT DENTAL [address] [place] [address] Christian Winchester DDS [address] [place] [address] 10/28/2024 10:30 AM EDT Clinical Support [facility] CHC MED & PEDS [address] [place] [address] Amanda Fernández, RN [address] [place] [address] 11/16/2024 11:15 AM EDT Office Visit [facility] MEDICINE [address] [place] [address] Pascual Daly MD [address] [place] [address] 02/17/2025 10:00 AM EDT Office Visit [facility] ADULT DENTAL [address] [place] [address] Kandy, Gabriela [address] [place] [address] documented as of this encounter Goals Goal [...] documented as of this encounter Care Teams Propeller Layout Worker Relationship Specialty Start Date End Date Pascual Daly MD [address] [place] [address] PCP - General Internal Medicine 02/22/14 Dasia Waters PharmD [address] [place] [address] Pharmacist Internal Medicine 08/16/24 documented as of this encounter
--- OUTSIDE RECORDS SUMMARY | 2024-09-07 11:17 | XMS_ITS | Encounter Summary ---
Author Organization [employer] Address [address] [facility] 7t [place] [address] Care Team Providers Care Judge'S Clerk Name Role Phone Pascual Daly MD Primary Care Provide r Fani Heck PharmD Unavailable [phone] Dasia Waters PharmD Unavailable [phone] Reason for Visit * Reason Comments Med Refill Encounter Details Date Type Department Care Team ([facility] st Contact Info) Description 03/27/2023 Refill [facility] MED & PEDS [address] [place] [address] Titi Gray FNP Major depressive disorder with [...] Description 09/15/2024 10:00 AM EDT Medication Management [facility] MEDICINE [address] [place] [address] 09/16/2024 9:30 AM EDT Office Visit [facility] ADULT DENTAL [address] [place] [address] Christian Winchester DDS [address] [place] [address] 10/28/2024 10:30 AM EDT Clinical Support [facility] CHC MED & PEDS 505 [place] [address] Amanda Fernández, AALIYAH [address] [place] [address] 11/16/2024 11:15 AM EDT Office Visit [facility] MEDICINE [address] [place] [address] Pascual Daly MD [address] [place] [address] 02/17/2025 10:00 AM EDT Office Visit [facility] ADULT DENTAL [address] [place] [address] Gabriela Gaitan [address] [place] [address] documented as of this encounter Goals Goal [...] documented as of this encounter Care Teams Judge'S Clerk Relationship Specialty Start Date End Date Pascual Daly MD [address] [place] [address] PCP - General Internal Medicine 02/22/14 Fani Heck, PharmD [address] [place] [address] Pharmacist Internal Medicine 12/16/22 08/15/24 Dasia Waters PharmD [address] [place] [address] Pharmacist Internal Medicine 08/16/24 documented as of this encounter
--- OUTSIDE RECORDS SUMMARY | 2024-09-07 11:17 | XMS_ITS | Encounter Summary ---
Author Organization [employer] Address [address] [facility] [address] 7t [place] [address] Care Team Providers Care Painter And Grader Cork Name Role Phone Pascual Daly MD Primary Care Provide r Fani Heck PharmD Unavailable + Dasia Waters PharmD Unavailable [phone] Encounter Details Date Type Department Care Team (Late st Contact Info) Description 03/05/2024 Refill [facility] MEDICINE [address] [place] [address] Jefry Chun Benign hypertension; Type 2 diabetes mellitus without complication, with long-term current use of insulin ([facility]) Social History Tobacco Use Types Packs/Day [...] 10:00 AM EDT Medication Management [facility] MEDICINE [address] [place] [address] 09/16/2024 9:30 AM EDT Office Visit [facility] ADULT DENTAL [address] [place] [address] Christian Winchester DDS [address] [place] [address] 10/28/2024 10:30 AM EDT Clinical Support [facility] CHC MED & PEDS [address] [place] [address] Amanda Fernández, AALIYAH [address] [place] [address] 11/16/2024 11:15 AM EDT Office Visit [facility] MEDICINE [address] [place] [address] Pascual Daly MD [address] [place] [address] 02/17/2025 10:00 AM EDT Office Visit [facility] ADULT DENTAL [address] [place] [address] Gabriela Gaitan [address] [place] [address] documented as of this encounter Goals Goal Patient Goal Type Associated Problems Recent Progress Patient-Stated? Author Blood Pressure < 140/90 Blood Pressure 142/72( 025 12:49 PM EDT) No Fani Heck, PharmD documented as of this encounter Visit Diagnoses Diagnosis Benign hypertension Essential hypertension, benign Type 2 diabetes mellitus without complication, with long-term current use of insulin ([facility]) documented in this encounter Additional Health Concerns Assessment Noted Time PHQ-9 Depression Total Score: 9 01/29/20 24 11:00 AM EDT documented as of this encounter Care Teams Painter And Grader Cork Relationship Specialty Start Date End Date Pascual Daly MD [address] [place] [address] PCP - General Internal Medicine 02/22/14 Fani Heck, PharmD [address] [place] [address] Pharmacist Internal Medicine 12/16/22 08/15/24 Dasia Waters, KristiD [address] [place] [address] Pharmacist Internal Medicine 08/16/24 documented as of this encounter
--- OUTSIDE RECORDS SUMMARY | 2024-09-07 11:17 | XMS_ITS | Encounter Summary ---
Author Organization [employer] Address [address] [facility] 7t [place] [address] Care Team Providers Care Histotechnologist Supervisor Name Role Phone Pascual Daly MD Primary Care Provide r Fani Heck PharmD Unavailable [phone] Dasia Waters PharmD Unavailable [phone] Reason for Visit * Reason Comments Med Refill Encounter Details Date Type Department Care Team (Late Contact Info) Description 08/08/2022 Refill [facility] [address] [place] [address] Momo Rizo MD [address] [place] [address] Mild intermittent asthma without complication Social History [...] Description 09/15/2024 10:00 AM EDT Medication Management [facility] MEDICINE [address] [place] [address] 09/16/2024 9:30 AM EDT Office Visit [facility] ADULT DENTAL [address] [place] [address] Christian Winchester DDS [address] [place] [address] 10/28/2024 10:30 AM EDT Clinical Support [facility] MED & PEDS [address] [place] [address] Amanda Fernández, AALIYAH [address] [place] [address] 11/16/2024 11:15 AM EDT Office Visit [facility] MEDICINE [address] [place] [address] Pascual Daly MD [address] [place] [address] 02/17/2025 10:00 AM EDT Office Visit [facility] ADULT DENTAL [address] [place] [address] Kandy, Gabriela [address] [place] [address] documented as of this encounter Goals Goal [...] documented as of this encounter Care Teams Histotechnologist Supervisor Relationship Specialty Start Date End Date Pascual Daly MD [address] [place] [address] PCP - General Internal Medicine 02/22/14 Fani Heck, PharmD [address] [place] [address] Pharmacist Internal Medicine 12/16/22 08/15/24 Dasia Waters, Woody [address] [place] [address] Pharmacist Internal Medicine 08/16/24 documented as of this encounter
--- OUTSIDE RECORDS SUMMARY | 2024-09-07 11:17 | XMS_ITS | Encounter Summary ---
Author Organization [employer] Address [address] [facility] [address] 7t [place] [address] Care Team Providers Care Bench Worker Helper Name Role Phone Pascual Daly MD Primary Care Provide r Fani Heck PharmD Unavailable +[phone] Dasia Waters PharmD Unavailable [phone] Encounter Details Date Type Department Care Team (Late st Contact Info) Description 09/25/2023 Telephone [facility] MEDICINE [address] [place] [address] Pascual Daly MD 230 [place], [place] [phone] Social History Tobacco Use Types Packs/Day Years [...] Description 09/15/2024 10:00 AM EDT Medication Management [facility] MED[facility]INE [address] [place] [address] 09/16/2024 9:30 AM EDT Office Visit [facility] ADULT DENTAL 230 [place] [address] Christian Winchester DDS [address] [place] [address] 10/28/2024 10:30 AM EDT Clinical Support [facility] MED & PEDS 505 [place] [address] Amanda Fernández, AALIYAH 505 [place] [address] 11/16/2024 11:15 AM EDT Office Visit [facility] MEDICINE [address] [place] [address] Pascual Daly MD [address] [place] [address] 02/17/2025 10:00 AM EDT Office Visit [facility] ADULT DENTAL 230 [place] [address] Gabriela Gaitan 230 [place] [address] documented as of this encounter Goals Goal [...] documented as of this encounter Care Teams Bench Worker Helper Relationship Specialty Start Date End Date Pascual Daly MD 230 [place] [address] PCP - General Internal Medicine 02/22/14 Fani Heck, PharmD [address] [place] [address] Pharmacist Internal Medicine 12/16/22 08/15/24 Dasia Waters, KristiD 230 [place] [address] Pharmacist Internal Medicine 08/16/24 documented as of this encounter
--- OUTSIDE RECORDS SUMMARY | 2024-09-07 11:17 | XMS_ITS | Encounter Summary ---
Author Organization [employer] Address 75 [facility] 7t [place] [address] Care Team Providers Care Child Care Centre Manager Name Role Phone Pascual Daly MD Primary Care Provide r Fani Heck PharmD Unavailable +5 Dasia Waters PharmD Unavailable [phone] Reason for Visit * Reason Comments Med Refill Encounter Details Date Type Department Care Team (Late st Contact Info) Description 09/26/2023 Refill [facility] MEDICINE 230 [place], [place] [phone] Pascual Daly MD 230 [place], [place] [phone] Social History Tobacco Use Types Packs/Day Years [...] Description 09/15/2024 10:00 AM EDT Medication Management [facility] MEDICINE [address] [place] [address] 09/16/2024 9:30 AM EDT Office Visit [facility] ADULT DENTAL [address] [place] [address] Christian Winchester DDS [address] [place] [address] 10/28/2024 10:30 AM EDT Clinical Support [facility] CHC MED & PEDS [address] [place] [address] Amanda Fernández, AALIYAH 505 [place] [address] 11/16/2024 11:15 AM EDT Office Visit [facility] MEDICINE [address] [place] [address] Pascual Daly MD [address] [place] [address] 02/17/2025 10:00 AM EDT Office Visit [facility] ADULT DENTAL [address] [place] [address] Gabriela Gaitan 230 [place] [address] documented as of this encounter Goals Goal [...] as of this encounter Care Teams Child Care Centre Manager Relationship Specialty Start Date End Date Pascual Daly MD 230 [place] [address] PCP - General Internal Medicine 02/22/14 Fani Heck, PharmD [address] [place] [address] Pharmacist Internal Medicine 12/16/22 08/15/24 Dasia Waters, KristiD [address] [place] [address] Pharmacist Internal Medicine 08/16/24 documented as of this encounter
--- OUTSIDE RECORDS SUMMARY | 2024-09-07 11:18 | XMS_ITS | Encounter Summary ---
Author Organization [employer] Address 75 [facility] 7t [place] [address] Care Team Providers Care Tubular Stock Glass Bulb Machine Former Name Role Phone Pascual Daly MD Primary Care Provide r Fani Heck PharmD Unavailable + Dasia Waters PharmD Unavailable [phone] Encounter Details Date Type Department Care Team (Late st Contact Info) Description 05/29/2022 Abstract [facility] MEDICINE 230 [place] [address] Pascual Daly MD 230 [place], [place] [phone] Social History Tobacco Use Types Packs/Day Years [...] Description 09/15/2024 10:00 AM EDT Medication Management [facility] MEDICINE [address] [place] [address] 09/16/2024 9:30 AM EDT Office Visit [facility] ADULT DENTAL [address] [place] [address] Christian Winchester DDS [address] [place] [address] 10/28/2024 10:30 AM EDT Clinical Support [facility] MED & PEDS 505 [place] [address] Amanda Fernández, RN 505 [place] [address] 11/16/2024 11:15 AM EDT Office Visit [facility] MEDICINE [address] [place] [address] Pascual Daly MD 230 [place] [address] 02/17/2025 10:00 AM EDT Office Visit [facility] ADULT DENTAL [address] [place] [address] Gabriela Gaitan [address] [place] [address] documented as of this encounter Goals Goal [...] documented as of this encounter Care Teams Tubular Stock Glass Bulb Machine Former Relationship Specialty Start Date End Date Pascual Daly MD 230 [place] [address] PCP - General Internal Medicine 02/22/14 Fani Heck, KristiD [address] [place] [address] Pharmacist Internal Medicine 12/16/22 08/15/24 Dasia Waters PharmD [address] [place] [address] Pharmacist Internal Medicine 08/16/24 documented as of this encounter
--- OUTSIDE RECORDS SUMMARY | 2024-09-07 11:18 | XMS_ITS | Encounter Summary ---
Author Organization [employer] Address 75 [facility] 7t [place] [address] Care Team Providers Care Product Sales Representative Name Role Phone Pascual Daly MD Primary Care Provide r Fani Heck PharmD Unavailable [phone] Dasia Waters PharmD Unavailable [phone] Encounter Details Date Type Department Care Team (Latest Contact Info) Description 05/26/2019 Abstract [facility] CONVERSIONS Dental, Provider, DDS Social History Tobacco [...] 10:00 AM EDT Medication Management [facility] MEDICINE 230 [place] [address] 09/16/2024 9:30 AM EDT Office Visit [facility] ADULT DENTAL 230 [place] [address] Christian Winchester DDS 230 [place] [address] 10/28/2024 10:30 AM EDT Clinical Support [facility] CHC MED & PEDS 505 [place] [address] Amanda Fernández, AALIYAH 505 [place] [address] 11/16/2024 11:15 AM EDT Office Visit [facility] MEDICINE [address] [place] [address] Pascual Daly MD [address] [place] [address] 02/17/2025 10:00 AM EDT Office Visit [facility] ADULT DENTAL [address] [place] [address] [employer] 230 [place] [address] documented as of this encounter Visit Diagnoses Not on filedocumented in this encounter Care Teams Product Sales Representative Relationship Specialty Start Date End Date Pascual Daly MD [address] [place] [address] PCP - General Internal Medicine 02/22/14 Fani Heck, PharmD [address] [place] [address] Pharmacist Internal Medicine 12/16/22 08/15/24 Dasia Waters, KristiD [address] [place] [address] Pharmacist Internal Medicine 08/16/24 documented as of this encounter
--- OUTSIDE RECORDS SUMMARY | 2024-09-07 11:18 | XMS_ITS | Encounter Summary ---
Author Organization [employer] Address 75 [facility] 7t [place] [address] Care Team Providers Care Computer Equipment Installer Name Role Phone Pascual Daly MD Primary Care Provide r Fani Heck PharmD Unavailable [phone] Dasia Waters PharmD Unavailable [phone] Reason for Visit * Reason Comments Med Refill Encounter Details Date Type Department Care Team (Late Contact Info) Description 12/28/2022 Refill [facility] MEDICINE 230 [place] [address] Titi Gray FNP Major depressive disorder with [...] Description 09/15/2024 10:00 AM EDT Medication Management [facility] MEDICINE [address] [place], [place] [phone] 09/16/2024 9:30 AM EDT Office Visit [facility] ADULT DENTAL [address] [place] [address] Christian Winchester DDS 230 [place] [address] 10/28/2024 10:30 AM EDT Clinical Support [facility] CHC MED & PEDS 505 [place] [address] Amanda Fernández, RN 505 [place], [place] 11/16/2024 11:15 AM EDT Office Visit [facility] MEDICINE [address] [place] [address] Pascual Daly MD 230 [place] [address] 02/17/2025 10:00 AM EDT Office Visit [facility] ADULT DENTAL [address] [place] [address] Gabriela Gaitan 230 [place] [address] documented as of this encounter Goals Goal [...] as of this encounter Care Teams Computer Equipment Installer Relationship Specialty Start Date End Date Pascual Daly MD [address] [place] [address] PCP - General Internal Medicine 02/22/14 Fani Heck, PharmD [address] [place] [address] Pharmacist Internal Medicine 12/16/22 08/15/24 Dasia Waters, Woody [address] [place] [address] Pharmacist Internal Medicine 08/16/24 documented as of this encounter
--- OUTSIDE RECORDS SUMMARY | 2024-09-07 11:18 | XMS_ITS | Encounter Summary ---
Author Organization [employer] Address 75 [facility] 7t [place] [address] Care Team Providers Care Insulation Board Calender Operator Name Role Phone Pascual Daly MD Primary Care Provide r Fani Heck PharmD Unavailable [phone] Dasia Waters PharmD Unavailable [phone] Encounter Details Date Type Department Care Team (Late st Contact Info) Description 03/13/2022 Abstract [facility] MEDICINE [address] [place] [address] Provider, MD Bill Social History Tobacco Use [...] [facility] MEDICINE [address] [place] [address] 09/16/2024 9:30 AM EDT Office Visit [facility] ADULT DENTAL [address] [place] [address] Christian Winchester DDS 230 [place] [address] 10/28/2024 10:30 AM EDT Clinical Support [facility] CHC MED & PEDS 505 [place] [address] Amanda Fernández, RN 505 [place] [address] 11/16/2024 11:15 AM EDT Office Visit [facility] MEDICINE [address] [place] [address] Pascual Daly MD 230 [place] [address] 02/17/2025 10:00 AM EDT Office Visit [facility] ADULT DENTAL 230 [place] [address] Gabriela Gaitan 230 [place] [address] documented as of this encounter Visit Diagnoses Not on filedocumented in this encounter Care Teams Insulation Board Calender Operator Relationship Specialty Start Date End Date Pascual Daly MD [address] [place] [address] PCP - General Internal Medicine 02/22/14 Fani Heck, KristiD [address] [place] [address] Pharmacist Internal Medicine 12/16/22 08/15/24 Dasia Waters PharmD [address] [place] [address] Pharmacist Internal Medicine 08/16/24 documented as of this encounter
--- OUTSIDE RECORDS SUMMARY | 2024-09-07 11:18 | XMS_ITS | Encounter Summary ---
Author Organization [employer] Address 75 [facility] 7t [place] [address] Care Team Providers Care Projection Printer Name Role Phone Pascual Daly MD Primary Care Provide r Fani Heck PharmD Unavailable +5 Dasia Waters PharmD Unavailable [phone] Reason for Visit * Reason Onset Date Comments Med Refill 12/15/2023 Encounter Details Date Type Department Care Team (Late st Contact Info) Description 12/15/2023 Telephone [facility] MEDICINE 230 [place], [place] [phone] Pascual Daly MD 230 [place] [address] Med Refill Social History Tobacco Use Types [...] immediate release tablet To be sent to: [facility] - [place], [place] - [address] [place] [address] documented in this encounter Plan of Treatment Upcoming Encounters Date Type Department Care Team ([facility] st Contact Info) Description 09/15/2024 10:00 AM EDT Medication Management [facility] MEDICINE [address] [place] [address] 09/16/2024 9:30 AM EDT Office Visit [facility] ADULT DENTAL [address] [place] [address] Christian Winchester DDS 230 [place] [address] 10/28/2024 10:30 AM EDT Clinical Support [facility] CHC MED & PEDS [address] [place] [address] Amanda Fernández, AALIYAH 505 [place] [address] 11/16/2024 11:15 AM EDT Office Visit [facility] MEDICINE 230 [facility] [place] [address] Pascual Daly MD 230 [place] [address] 02/17/2025 10:00 AM EDT Office Visit [facility] ADULT DENTAL 230 [place] [address] Kandy, Gabriela [address] [place] [address] documented as of this encounter Goals Goal [...] documented as of this encounter Care Teams Projection Printer Relationship Specialty Start Date End Date Pascual [place] [address] PCP - General Internal Medicine 02/22/14 Fani Heck, PharmD [address] [place] [address] Pharmacist Internal Medicine 12/16/22 08/15/24 Dasia Waters, KristiD [address] [place] [address] [place], [place] [phone] Pharmacist Internal Medicine 08/16/24 documented as of this encounter
--- OUTSIDE RECORDS SUMMARY | 2024-09-07 11:18 | XMS_ITS | Clinical Summary ---
Author Organization [employer] Address [address] [facility] [address] [place] [address] Care Team Providers Care Marine Radio Installer And Servicer Name Role Phone Pascual Daly MD Primary Care Provide r Dasia Waters PharmD Unavailable [phone] Allergies Active Allergy Reactions Criticality Noted Date [...] EVERY MORNING 90 tablet 1 025 Active gabapentin (Neurontin) 100 MG capsuleIndicati ons:Pain TAKE 1 CAPSULE BY MOUTH TWICE DAILY IN THE MORNING AND AT BEDTIME 180 capsule 1 025 Active Alcohol Swabs (Alcohol Pads) 70 % padsIndications :Type 2 diabetes mellitus without complication, with long-term current use of insulin ([facility]) Use up to 4 times a day for insulin injections 100 each 11 025 Active Blood Pressure Monitoring (Adult Blood Pressure Cuff Lg) kit Use daily to check blood pressure 1 kit 025 Active atorvastatin (Lipitor) 20 MG tabletIndicatio ns:Type 2 diabetes mellitus without complication, with long-term current use of insulin ([facility]) TAKE 1 TABLET BY MOUTH EVERY MORNING 90 tablet 1 025 Active amLODIPine (Norvasc) 10 MG tabletIndicatio ns:Benign hypertension TAKE 1 TABLET BY MOUTH EVERY EVENING 90 tablet 1 025 Active oxyCODONE (Roxicodone) 5 MG immediate release tabletIndicatio ns:Fibromyalgia Take 1 tablet (5 mg) by mouth every 12 (twelve) hours if needed for severe pain. 56 tablet Active atorvastatin (Lipitor) 20 MG tabletIndicatio ns:Type 2 diabetes mellitus without complication, with long-term current use of insulin (CMS/HCC) TAKE 1 TABLET BY MOUTH EVERY MORNING 90 tablet 025 2024 Discontinued amLODIPine (Norvasc) 10 MG tabletIndicatio ns:Benign hypertension TAKE 1 TABLET BY MOUTH EVERY EVENING 90 tablet 025 2024 Discontinued oxyCODONE (Roxicodone) 5 MG immediate release tabletIndicatio ns:Fibromyalgia Take 1 tablet (5 mg) by mouth every 12 (twelve) hours if needed for severe pain. 56 tablet 025 2024 Discontinued(R eorder (will not trigger notification to Pharmacy)) Active Problems Problem Noted Date Diagnosed Date Coronary artery disease invo lving iqugmiut coronary artery of iqugmiut heart without angina pectoris 08/12/2024 Assessment & [...] (10/21/2023 10:15 AM EDT): Patient admitted to [facility] 09/09/23 after she presented to [place] emergency room due to left-sided chest discomfort as per patient she was visiting family in [place], on August 26 she turned in high [...] 10:18 AM EDT): Mammogram 06/05/2023 Normal Pap 712/13 normal, given age no need to continue Colonoscopy done 03/20/2018 Normal Assessment & Plan (08/27/2022 10:17 AM EDT): Mammogram 2019 Normal Pap 7/12/13 normal, given age no need to continue Colonoscopy done 03/20/2018 Normal S/P gastric bypass 08/27/2022 Assessment & Plan (08/27/2022 10:18 AM EDT): Pt is s/p laparoscopic gastrectomy by [facility] her weight has dropped significantly. She will continue to follow with them. Has no particular complaints. Hair loss 08/27/2022 Assessment & Plan (08/27/2022 10:19 AM EDT): followed by a fitter and turner. 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 - [facility] in November. Repeat BMP and A1c prior [...] from 8.9 Eye exam done on: 12/2023 [facility] Dx with new [...] f/u She is under the care of Laboratory Aide Dr Sprague, last seen 12/31/2023 On a [...] f/u She is under the care of Laboratory Aide Dr Sprague, last seen 10/16/2023 On a [...] f/u She is under the care of Laboratory Aide Dr Sprague, has a follow up with [...] f/u She is under the care of Laboratory Aide Dr Sprague, has a follow up at [...] was referred to Dr. Manjinder Gonsales at [facility] as her medical insurance recommended this referral. [...] LDL-C. Melquiades WALLACE et al. TEN. 2013;310(19): 8602-6805 (http://education.DateMyFamily.com.Student Loan Hero/faq/[email or web address]) Chol/HDLC Ratio <5.0 (calc) 4.2 3.7 2.5 [...] Encounters Date Type Department Care Team Description 09/07/2024 Orders Only GENERIC EXTERNAL DATA DEPARTMENT Provider, Generic External Data 08/31/2024 Refill [facility] [address] [place] [address] Amanda Fernández RN Fibromyalgia 08/31/2024 Telephone [facility] [address] [place] [address] Pascual Daly MD Med Refill 08/23/2024 Refill [facility] [address] [place] [address] Pascual Daly MD Type 2 diabetes mellitus without complication, with long-term current use of insulin (CMS/[facility]); Benign hypertension 08/16/2024 Orders Only GENERIC EXTERNAL DATA DEPARTMENT Provider, Generic External Data 08/16/2024 Travel 08/12/2024 10:15 AM EDT Office Visit [facility] [address] [place] [address] Pascual Daly MD Type 2 diabetes mellitus with right eye affected by mild nonproliferative retinopathy without macular edema, with long-term current use of insulin (CMS/HCC) (Primary Dx); Type 2 diabetes mellitus without complication, with long-term current use of insulin (CMS/HCC); Mixed hyperlipidemia; Primary hypertension; Gastroesophageal reflux disease without esophagitis; Coronary artery disease involving iqugmiut coronary artery of iqugmiut heart without angina pectoris 08/12/2024 Travel 08/06/2024 Telephone [facility] [address] [place] [address] Pascual Daly MD Chart Prep 08/05/2024 10:00 AM EDT Office Visit [facility] ADULT DENTAL [address] [place] [address] Gabriela Gaitan Dental plaque (Primary Dx); Localized gingival recession; Xerostomia; Odontoma 08/05/2024 Refill [facility] [address] [place] [address] Pascual Daly MD Fibromyalgia 08/02/2024 Orders Only [facility] [address] [place] [address] Pascual Daly MD 07/29/2024 Orders Only GENERIC EXTERNAL DATA DEPARTMENT Provider, [place] External Data 07/22/2024 10:30 AM EDT Clinical Support [facility] [address] [place] [address] Amanda Fernández RN Fibromyalgia (Primary Dx); Long-term current use of opiate analgesic 07/22/2024 Telephone [facility] [address] [place] [address] Amanda Fernández RN 07/22/2024 Travel 07/21/2024 Orders Only [facility] [address] [place] [address] Pascual Daly MD Type 2 diabetes mellitus without complication, with long-term current use of insulin ([facility]) (Primary Dx) 07/21/2024 Telephone [facility] [address] [place] [address] Pascual Daly MD 07/14/2024 Telephone [facility] [address] [place] [address] Pascual Daly MD Chart Prep 07/07/2024 Refill [facility] [address] [place] [address] Pascual Daly MD Fibromyalgia 07/07/2024 Orders Only GENERIC EXTERNAL DATA DEPARTMENT Provider, Generic External Data 06/22/2024 Refill [facility] [address] [place] [address] Pascual Daly MD Pain 06/15/2024 Orders Only GENERIC EXTERNAL DATA DEPARTMENT Provider, Generic External Data 06/10/2024 Refill [facility] [address] [place] [address] Pascual Daly MD Fibromyalgia from Last 3 Months Immunizations Immunization Administration Dates Next Due Influenza High-dose Quadriva [...] 09/15/2024 10:00 AM EDT Medication Management [facility] [address] [place] [address] 09/16/2024 9:30 AM EDT Office Visit [facility] ADULT DENTAL [address] [place] [address] Christian Winchester DDS [address] [place] [address] 10/28/2024 10:30 AM EDT Clinical Support [facility] [address] [place] [address] Amanda Fernández, RN [address] [place] [address] 11/16/2024 11:15 AM EDT Office Visit [facility] [address] [place] [address] Pascual Daly MD [address] [place] [address] 02/17/2025 10:00 AM EDT Office Visit [facility] AD[facility] [address] [place] [address] Primo Gaitanaris [address] [place] [address] Health Maintenance Due Date Last Done Comments [...] 07/17/2021, Additional history exists Diabetes: Hemoglobin A1C 11/11/20242 025, 05/04/2024, 02/17/2024, Additional history exists Depression [...] WHOLE BLOOD Routine 09/07/2024 10:35 AM EDT TSH Routine 08/16/2024 9:24 AM EDT PTH, INTACT WITHOUT CALCIUM Routine 08/16/2024 9:24 AM EDT T4, FREE Routine 08/16/2024 9:24 AM EDT CBC WITH AUTO DIFFERENTIAL Routine 08/16/2024 9:24 AM EDT Coronary artery disease involving iqugmiut coronary artery of iqugmiut heart without angina pectoris HEPATIC FUNCTION PANEL Routine 08/16/2024 9:24 AM EDT Mixed hyperlipidemia Coronary artery disease involving iqugmiut coronary artery of iqugmiut heart without angina pectoris BASIC METABOLIC PANEL Routine 08/16/2024 9:24 AM EDT Primary hypertension LIPID PANEL, STANDARD Routine 08/16/2024 9:24 AM EDT Mixed hyperlipidemia POCT GLYCATED HEMOGLOBIN, TOTAL Routine 08/12/2024 10:16 AM EDT Type 2 diabetes mellitus without complication, with long-term current use of insulin ([facility]) POCT GLUCOSE Routine 08/12/2024 10:11 AM EDT Type 2 diabetes mellitus without complication, with long-term current use of insulin ([facility]) PERIODIC ORAL EVALUATION - ESTABLISHED PATIENT [...] WHOLE BLOOD Routine 06/15/2024 10:16 AM EST ALBUMIN, RANDOM URINE W/CREATININE Routine 07/02/2023 10:06 AM EDT HEPATITIS C VIRAL RNA GENOTYPE, LIPA Routine 01/15/2023 11:08 AM EDT HM COLONOSCOPY Routine 03/20/2018 from Last 3 Months or Most Recently Relevant to Health Maintenance Results * (ABNORMAL) Glucose, Whole Blood (09/07/2024 10:35 AM EDT) Only the most recent of4 resultswithin the time period is included. Glucose, Whole Blood 145(H) 60 - 115 mg/dL [facility] Comment:METER #: [id number] 5Testing performed in the Endocrinology Department [address] , [address], [facility]. 09/07/2024 10:3 5 AM EDT 09/07/2024 10:41 AM EDT us Generic External Data Provider LAB BLOOD ORDERAB LES Final Result [facility] [address] [place] [address] [phone] * (ABNORMAL) CBC auto differential (08/16/2024 9:24 AM EDT) White Blood Count 8.7 4.8 - 10.8 X10*3/uL [facility] Red Blood Count 3.95(L) 4.20 - 5.50 X10*6/uL [facility] Hemoglobin 11.3(L) 12.0 - 16.0 g/dl [facility] Hematocrit 36.0(L) 37.0 - 47.0 % [facility] Mean Corpuscular Volume 91.1 80.0 - 98.0 fL [facility] Mean Corpuscular Hemoglobin 28.6 27.0 - 33.0 pg [facility] Mean Corpuscular HGB Conc 31.4 31.0 - 35.0 g/dl [facility] Red Cell Distribution Width 14.6 11.0 - 16.0 % [facility] Platelet Count 186 160 - 400 X10*3/uL [facility] Mean Platelet Volume 11.1 9.4 - 12.3 fL [facility] Neutrophils Percent Auto 42.9(L) 45 - 73 % [facility] Imm Gran Pct Auto 0.6(H) 0.0 - 0.4 % [facility] Lymphocytes Percent Auto 33.8 20 - 40 % [facility] Monocytes Percent Auto 6.5 2 - 11 % [facility] Eosinophils Percent Auto 14.8(H) 0 - 4 % [facility] Basophils Percent Auto 1.4 0 - 2 % [facility] NRBC Pct Auto 0.0 0.0 - 0.2 /100WBC [facility] Neutrophils Absolute Auto 3.8 2.0 - 8.3 x10*3/uL [facility] Imm Gran Abs Auto 0.05(H) 0.00 - 0.03 X10*3/uL [facility] Lymphocytes Absolute Auto 3.0 1.2 - 4.9 X10*3/uL [facility] Monocytes Absolute Auto 0.6 0.1 - 1.2 X10*3/uL [facility] Eosinophils Absolute Auto 1.3(H) 0.0 - 0.4 X10*3/uL [facility] Basophils Absolute Auto 0.1 0.0 - 0.2 X10*3/uL [facility] NRBC Abs Auto 0.000 0.0 - 0.012 X10*3/uL [facility] Blood Venous blood specimen / Unknown 08/16/2024 9:24 AM EDT 08/16/2024 10:57 AM EDT us Pascual Terry MD LAB BLOOD ORDERABLES Final Result Performing Organization Address City/[facility]/ZIP Co de Phone Number [facility] [address] [place] [phone] * (ABNORMAL) TSH (08/16/2024 9:24 AM EDT) Thyroid Stimulating Hormone 21.47(H) 0.32 - 4.0 uIU/mL [facility] Comment:Note: A sustained TS H level above 2.5 uIU/mL may warrant further investigation. TSH 3rd Generation ([facility]) 08/16/2024 9:24 AM EDT 08/16/2024 10:57 AM EDT us Generic External Data Provider LAB BLOOD ORDERAB LES Final Result Performing Organization Address City/[facility]/ZIP Co de Phone Number [facility] [address] [place] [phone] * (ABNORMAL) T4, Free (08/16/2024 9:24 AM EDT) Free T4 (Free Thyroxine) 0.60(L) 0.71 - 1.85 ng/dL [facility] 08/16/2024 9:24 AM EDT 08/16/2024 10:57 AM EDT Generic External Data Provider LAB BLOOD ORDERAB LES Final Result Performing Organization Address [facility]/ZIP Co de Phone Number [facility] [address] [place] [address] [phone] * (ABNORMAL) PTH, Intact Without Calcium (08/16/2024 9:24 AM EDT) Only the most recent of2 resultswithin the time period is included. Parathyroid Hormone, Intact 187.5(H) 8.7 - 77.1 pg/mL [facility] 08/16/2024 9:24 AM EDT 08/16/2024 10:57 AM EDT Generic External Data Provider LAB BLOOD ORDERAB LES Final Result Performing Organization Address [facility] Co de Phone Number [facility] [address] [place] [phone] * (ABNORMAL) Hepatic Function Panel (08/16/2024 9:24 AM EDT) Bilirubin, Total 0.3 0.0 - 1.0 mg/dL [facility] Bilirubin, Direct 0.2 0.0 - 0.5 mg/dL [facility] Aspartate Amino Transferase 39(H) 5 - 31 U/L [facility] Alanine Aminotransferase 49(H) 0 - 31 U/L [facility] Total Protein 6.3(L) 6.5 - 8.0 g/dL [facility] Albumin Level 4.0 3.5 - 5.0 g/dL [facility] Alkaline Phosphatase 77 39 - 117 U/L [facility] Blood Venous blood specimen / Unknown 08/16/2024 9:24 AM EDT 08/16/2024 10:57 AM EDT Pascual Terry MD LAB BLOOD ORDERABLES Final Result Performing Organization Address [facility] Co de Phone Number [facility] [address] [place] [phone] [phone] * Lipid Panel, Standard (08/16/2024 9:24 AM EDT) Triglycerides 100 <150 mg/dL [facility] Comment:Desirable Triglyceri de: less than 150 mg/dLBorderline High Triglyceride 150-199 mg/dLHigh Triglyceride: 200-499 mg/dLVery High Triglyceride: greater than or equal to 5OO mg/dL Cholesterol 145 <200 mg/dL [facility] Comment:Desirable Cholestero l: less than 200 mg/dLBorderline High Cholesterol: 200-239 mg/dLHigh Cholesterol: greater than 239 mg/dL LDL Cholesterol Calculated 60 <100 mg/dL [facility] Comment:Desirable LDL: less than 100 mg/dLNear Optimal/Above Optimal LDL: 110- 129 mg/dLBorderline High LDL: 130-159 mg/dLHigh LDL: 160-189 mg/dLVery High LDL: greater than or equal to 190 mg/dL HDL Cholesterol 65 >40 mg/dL [facility] Comment:Desirable HDL: great er than 40 mg/dL Note: This HDL assay may give artificially low results in patients with liver disease. Blood Venous blood specimen / Unknown 08/16/2024 9:24 AM EDT 08/16/2024 10:57 AM EDT Pascual Terry MD LAB BLOOD ORDERABLES Final Result Performing Organization Address [facility]/ZIP Co de Phone Number [facility] [address] [place] [phone] * (ABNORMAL) Basic Metabolic Panel (08/16/2024 9:24 AM EDT) Sodium 140 135 - 145 mmol/L [facility] Potassium 5.0 3.3 - 5.1 mmol/L [facility] Chloride 104 96 - 108 mmol/L [facility] Carbon Dioxide 30(H) 22 - 29 mmol/L [facility] Anion Gap 11(L) 12 - 20 [facility] Urea Nitrogen (BUN) 17(H) 9 - 16 mg/dL [facility] Creatinine, Serum 1.09 0.5 - 1.4 mg/dL [facility] Estimated Glomerular Filt Rate 49 [facility] Comment:Chronic Kidney Disea se: Estimated GFR < 60 mL/min/1.60i5Sibfhc Kidney Disease: Estimated GFR < 15 mL/min/1.73m2 Glucose 188(H) 60 - 115 mg/dL [facility] Calcium 8.7 8.4 - 10.2 mg/dL [facility] Blood Venous blood specimen / Unknown 08/16/2024 9:24 AM EDT 08/16/2024 10:57 AM EDT Pascual Terry MD LAB BLOOD ORDERABLES Final Result [facility] [address] [place] [phone] * (ABNORMAL) POCT HGB A1C (08/12/2024 10:16 AM EDT) Hemoglobin A1C 7.8(A) 4.0 - 6.0 % QC Media Lot # [id number] Lot# Expiration Date Blood 08/12/2024 10:1 6 AM EDT us Pascual Terry MD POINT OF CARE TEST EN TER/EDIT ORDERABLES Final Result * (ABNORMAL) POCT Glucose (08/12/2024 10:11 AM EDT) [facility] Glucose Blood, POC 203(A) 60 - 200 mg/dL QC Media Lot # [id number] Lot# Expiration Date , Blood Capillary blood specimen / Unknown 08/12/2024 10:11 AM EDT us Pascual Terry MD POINT OF CARE TEST EN TER/EDIT ORDERABLES Final Result * BI Mammogram Screening Tomosynthesis Bilateral (08/02/2024 11:03 AM EDT) Anatomical Region Laterality Modality Breast Bilateral Mammography 08/02/2024 11:0 3 AM EDT Narrative 08/10/2024 3:27 PM EDT ? [facility] [place] ? [address] ?[place] [address] ?[phone] ? Mammography Report ? Signed ? Patient: Max,Brandie ?MR#: [id number] ? : 1950 ?Acct:[id number] ? Age/Sex: 74 / F ?ADM Date: 08/02/ ? Loc: HO.MAMMO ? Attending Dr: Pascual Darnell MD ? Ordering Physician: Pascual Darnell MD ?Resu ?? lts: 2Benign Findings ? Date of Service: 08/02/ ?Follow Up: 1 Year From Orig ?? inal Mammogram ? Procedure(s): MM tomosynthesis screening BI ?? Accession Number(s): [id number] ? cc: Pascual Darnell MD ? EXAMINATION: [...] DD/ 1103 ? TD/TT: 08/02/24 1116 ? [employer]: ? Procedure Note Fawad Rivers - 08/10/2024 [facility] [address] [place], [place] [address] Mammography Report Signed Patient: Melo SantanaRashad#: [id number] : 1950Acct:[id number] Age/Sex: 74 / FADM Date: 08/02/24 Loc: HO.MAMMO Attending Dr: Pascual Darnell MD Ordering Physician: Pascual Darnell MDResu lts: 2Benign Findings Date of Service: 08/02/24Follow Up: 1 Year From Orig inal Mammogram Procedure(s): MM tomosynthesis screening BI Accession Number(s): [id number] cc: Pascual Darnell MD EXAMINATION: MM SCREENING [...] 08/10/24 1523 DD/ 1103 TD/TT: 08/02/24 1116 [employer]: us Pascual Terry MD IMG BI PROCEDURES Fin al Result * POCT HEATHER-14 Urine Drug Screen (07/22/2024 10:33 AM EDT) Oxycodone Screen, Urine Positive Urine Urine specimen obtained by clean catch procedure / Unknown 07/22/2024 10:33 AM EDT Narrative Amanda Fernández RN - 07/22/2024 10:33 AM EDT Lot# [id number] Exp: 12-08-25 us Pascual Terry MD POINT OF CARE TEST EN TER/EDIT ORDERABLES Final Result * Alkaline Phosphatase, Bone Specific (06/15/2024 11:09 AM EST) Alkaline Phosphatase, Bone Specific 13.2 5.6 - 29.0 mcg/L [facility] Comment:Reference Range, Pre menopausal (mcg/L) 35-45 years 5.0-18.2THIS TEST WAS PERFORMED AT:[facility] [place] [address]UKKZOFI W. MASON,MD,PHD 06/15/2024 11:0 9 AM EST 06/15/2024 11:13 AM EST us Generic External Data Provider LAB BLOOD ORDERAB LES Final Result Performing Organization Address [facility]/ZIP Co de Phone Number [facility] [address] [place] [phone] * Calcium, Ionized (06/15/2024 11:09 AM EST) Calcium, Ionized 5.3 4.7 - 5.5 mg/dL [facility] Comment:THIS TEST WAS PERFOR MED AT:[facility] [address] [id number] HURLEY MD 06/15/2024 11:0 9 AM EST 06/15/2024 11:13 AM EST us Generic External Data Provider LAB BLOOD ORDERAB LES Final Result Performing Organization Address City/[facility]/ZIP Co de Phone Number [facility] [address] [place] [phone] * (ABNORMAL) Albumin, Random Urine W/Creatinine (07/02/2023 10:06 AM EDT) Creatinine, Urine 163.81 mg/dL [facility] Microalbumin Urine 59.0 mg/L [facility] Microalbum Creatinine Ratio Ur 36.0(H) <30 ug/mg cr [facility] Comment:Albumin/Creatinine R atio Reference Ranges: Normal: < 30 ug/mg creatinine Microalbuminuria: 30 - 300 ug/mg creatinineClinical Albuminuria: > 300 ug/mg creatinine 07/02/2023 10:0 6 AM EDT 07/02/2023 11:41 AM EDT us Generic External Data Provider LAB URINE ORDERAB LES Final Result [facility] [address] [place] [phone] * Hepatitis C Viral RNA, Genotype, LiPA (01/15/2023 11:08 AM EDT) Hepatitis C Genotype Not Detected [facility] Comment: Genotype not detected due [...] characteristics of thisassay have been determined by [employer] [employer], [place], [place]. ??The modificationshave not been cleared or approved by the FDA. ??Thisassay has been validated pursuant to the CLIAregulations and is used for clinical purposes.For additional information, please refer tohttp://education.[employer]/faq/HCVGenotyping(This link is being provided for informational/educational purposes only.)THIS TEST WAS PERFORMED AT:[facility] [place] [address]YUXZZATJOHN CORDON MD,PHD 01/15/2023 11:0 8 AM EDT 01/15/2023 11:08 AM EDT [facility] External Provider LAB BLO OD ORDERABLES Final Result [facility] [address] [place] [phone] * Colonoscopy (03/20/2018) Colonoscopy Normal Normal 03/20/2018 Narrative Sondra Rowe - 03/20/2018 9:09 AM EST Recommended 10 year follow up Historical Provider HEALTH MAINTENANCE Edited Result - Final from Last 3 Months or Most Recently Relevant to Health Maintenance Insurance [facility] [employer] (O D-SNP) [place] [id number] D[facility]AL [facility] Care Teams [employer] Relationship Specialty Start Date End Date Pascual Daly MD [address] [place] [address] PCP - General Internal Medicine 02/22/14 Dasia Waters PharmD [address] [place] [address] Pharmacist Internal Medicine 08/16/24
--- OUTSIDE RECORDS SUMMARY | 2024-09-07 11:18 | XMS_ITS | Encounter Summary ---
Author Organization [employer] Address 75 [facility] 7t [place] [address] Care Team Providers Care Cloth Beamer Name Role Phone Pascual Daly MD Primary Care Provide r Fani Heck PharmD Unavailable +8 Dasia Waters PharmD Unavailable +[phone] Reason for Visit * Reason Comments Med Refill Encounter Details Date Type Department Care Team (Late st Contact Info) Description 03/04/2023 Refill [facility] MEDICINE [address] [place], [place] [phone] Pascual Daly MD 230 [place], [place] [phone] Type 2 diabetes mellitus without complication, with long-term current use of insulin ([facility]) Social History Tobacco Use Types [...] 10:00 AM EDT Medication Management [facility] MEDICINE [address] [place] [address] 09/16/2024 9:30 AM EDT Office Visit [facility] ADULT DENTAL [address] [place] [address] Christian Winchester DDS [address] [place] [address] 10/28/2024 10:30 AM EDT Clinical Support [facility] CHC MED & PEDS [address] [place] [address] Amanda Fernández, RN 505 [place] [address] 11/16/2024 11:15 AM EDT Office Visit [facility] MEDICINE [address] [place] [address] Pascual Daly MD 230 [place] [address] 02/17/2025 10:00 AM EDT Office Visit [facility] ADULT DENTAL [address] [place] [address] Gabriela Gaitan [address] [place] [address] documented as of this encounter Goals Goal Patient Goal Type Associated Problems Recent Progress Patient-Stated? Author Blood Pressure < 140/90 Blood Pressure 142/72( 025 12:49 PM EDT) No Fani Heck, PharmD documented as of this encounter Visit Diagnoses Diagnosis Type 2 diabetes mellitus without complication, with long-term current use of insulin ([facility]) documented in this encounter Additional Health Concerns Assessment Noted Time PHQ-9 Depression Total Score: 9 02/25/20 23 11:02 AM EST documented as of this encounter Care Teams Cloth Beamer Relationship Specialty Start Date End Date Pascual Daly MD 230 [place] [address] PCP - General Internal Medicine 02/22/14 Fani Heck, PharmD 230 [place] [address] Pharmacist Internal Medicine 12/16/22 08/15/24 Dasia Waters, KristiD 230 [place] [address] Pharmacist Internal Medicine 08/16/24 documented as of this encounter
--- OUTSIDE RECORDS SUMMARY | 2024-09-07 11:18 | XMS_ITS | Encounter Summary ---
Author Organization [employer] Address 75 [facility] 7t [place] [address] Care Team Providers Care Sign Wirer Name Role Phone Pascual Daly MD Primary Care Provide r Fani Heck PharmD Unavailable +9 Dasia Waters PharmD Unavailable [phone] Reason for Visit * Reason Onset Date Comments FYI 12/31/2023 Encounter Details Date Type Department Care Team (Late st Contact Info) Description 12/31/2023 Telephone [facility] MEDICINE 230 [place], [place] [phone] Pascual Daly MD 230 [place] [address] Social History Tobacco Use Types Packs/Day Years [...] any questions you can contact Franky at [phone]. documented in this encounter Plan of Treatment Upcoming Encounters Date Type Department Care Team (Late st Contact Info) Description 09/15/2024 10:00 AM EDT Medication Management [facility] MEDICINE [address] [place] [address] 09/16/2024 9:30 AM EDT Office Visit [facility] ADULT DENTAL [address] [place] [address] Christian Winchester DDS 230 [place] [address] 10/28/2024 10:30 AM EDT Clinical Support [facility] CHC MED & PEDS [address] [place] [address] Amanda Fernández, RN 505 [place] 11/16/2024 11:15 AM EDT Office Visit [facility] MEDICINE [address] [place] [address] Pascual Daly MD 230 [place] [address] 02/17/2025 10:00 AM EDT Office Visit [facility] ADULT DENTAL [address] [place] [address] Gabriela Gaitan 230 [place] [address] documented as of this encounter Goals Goal [...] documented as of this encounter Care Teams Sign Wirer Relationship Specialty Start Date End Date Pascual Daly MD [address] [place] [address] PCP - General Internal Medicine 02/22/14 Fani Heck, PharmD [address] [place] [address] Pharmacist Internal Medicine 12/16/22 08/15/24 Dasia Waters, KristiD [address] [place] [address] Pharmacist Internal Medicine 08/16/24 documented as of this encounter
--- OUTSIDE RECORDS SUMMARY | 2024-09-07 11:18 | XMS_ITS | Encounter Summary ---
Author Organization [employer] Address 75 [facility] 7t [place] [address] Care Team Providers Care Banquet Food Server Name Role Phone Pascual Daly MD Primary Care Provide r Fani Heck PharmD Unavailable +0 Dasia Waters PharmD Unavailable [phone] Reason for Visit * Reason Onset Date Comments FYI 12/11/2023 Durable Medical Equipment 12/11/2023 Encounter Details Date Type Department Care Team (Late st Contact Info) Description 12/11/[address] [facility] MEDICINE 230 [place], [place] [phone] Pascual Daly MD 230 [place], [place] [phone] FYI ; Durable Medical Equipment Social History [...] PM EDT Tc from [facility] [place] [facility] informing that pt had 2 falls within the last 3 days and is requesting two DME scripts to be sent to [facility] which: [facility] bed Please fax over to [phone] documented in this encounter Plan of Treatment Upcoming Encounters Date Type Department Care Team (Late st Contact Info) Description 09/15/2024 10:00 AM EDT Medication Management [facility] MEDICINE 230 [place] [address] 09/16/2024 9:30 AM EDT Office Visit [facility] ADULT DENTAL [address] [place] [address] Christian Winchester DDS 230 [place] [address] 10/28/2024 10:30 AM EDT Clinical Support [facility] CHC MED & PEDS [address] [place] [address] Amanda Fernández, RN 505 [place] [address] 11/16/2024 11:15 AM EDT Office Visit [facility] MEDICINE 230 [place] [address] Pascual Daly MD 230 [place] [address] 02/17/2025 10:00 AM EDT Office Visit [facility] ADULT DENTAL 230 [place] [address] Primo Gaitanaris 230 [place] [address] documented as of this encounter Goals Goal [...] documented as of this encounter Care Teams Banquet Food Server Relationship Specialty Start Date End Date Pascual Daly MD [address] [place] [address] PCP - General Internal Medicine 02/22/14 Fani Heck, PharmD [address] [place] [address] Pharmacist Internal Medicine 12/16/22 08/15/24 Dasia Waters, KristiD [address] [place] [address] Pharmacist Internal Medicine 08/16/24 documented as of this encounter
--- OUTSIDE RECORDS SUMMARY | 2024-09-07 11:18 | XMS_ITS | Encounter Summary ---
Author Organization [employer] Address 75 [facility] 7t [place] [address] Care Team Providers Care High Rigger Name Role Phone Pascual Daly MD Primary Care Provide r Fani Heck PharmD Unavailable +6 Dasia Waters PharmD Unavailable [phone] Reason for Visit * Reason Onset Date Comments FYI 11/06/2023 Encounter Details Date Type Department Care Team (Late st Contact Info) Description 11/06/2023 Telephone [facility] MEDICINE 230 [place], [place] [phone] Pascual Daly MD 230 [place] [address] Social History Tobacco Use Types Packs/Day Years [...] - 11/06/2023 4:39 PM EDT Tc from [facility] rayna [facility]ORDERO PT informing pt has started services For PT 11/06/23 documented in this encounter Plan of Treatment Upcoming Encounters Date Type Department Care Team (Late st Contact Info) Description 09/15/2024 10:00 AM EDT Medication Management [facility] MEDICINE 230 [place] [address] 09/16/2024 9:30 AM EDT Office Visit [facility] ADULT DENTAL 230 [place] [address] Christian Winchester DDS 230 [place] [address] 10/28/2024 10:30 AM EDT Clinical Support [facility] CHC MED & PEDS 505 [place] [address] Amanda Fernández, RN 505 [place] [address] 11/16/2024 11:15 AM EDT Office Visit [facility] MEDICINE 230 [facility] [place] [address] Pascual Daly MD [address] [place] [address] 02/17/2025 10:00 AM EDT Office Visit [facility] ADULT DENTAL 230 [facility] [place] [address] Primo Gaitanaris [address] [place] [address] documented as of this encounter Goals Goal Patient Goal Type Associated Problems Recent Progress Patient-Stated? Author Blood Pressure < 140/90 Blood Pressure 142/72( 025 12:49 PM EDT) No aFni Heck, PharmD documented as of this encounter Visit Diagnoses Not on filedocumented in this encounter Additional Health Concerns Assessment Noted Time PHQ-9 Depression Total Score: 11 024 10:24 AM EST documented as of this encounter Care Teams High Rigger Relationship Specialty Start Date End Date [place] [address] PCP - General Internal Medicine 02/22/14 Fani Heck, [place] [address] Pharmacist Internal Medicine 12/16/22 08/15/24 Dasia Waters, [place] [address] Pharmacist Internal Medicine 08/16/24 documented as of this encounter
--- OUTSIDE RECORDS SUMMARY | 2024-09-07 11:18 | XMS_ITS | Encounter Summary ---
Author Organization [email or web address] Address 75 [facility] 7t [place] [address] Care Team Providers Care Stave Log Cut Off Saw Operator Name Role Phone Pascual Daly MD Primary Care Provide r Fani Heck PharmD Unavailable +8 Dasia Waters PharmD Unavailable [phone] Encounter Details Date Type Department Care Team (Late st Contact Info) Description 07/01/2022 Abstract [facility] 230 [place] [address] Pascual Daly MD 230 [place], [place] [phone] Social History Tobacco Use Types Packs/Day Years [...] AM EDT documented as of this encounter Functional Status * Over the past 2 weeks, how often have you been bothered by any of the following problems? Question Answer Date of Assessment Author Patient Health Questionnaire -2 Score 3 07/04/2022 9:26 AM Meredith Dias [place] * If you checked off any problems on this questionnaire so far, Question Answer Date of Assessment Author How difficult have these problems made it for you to do your work, take care of things at home, or get along with other people? Very difficult 07/04/2022 9:26 AM Meredith Dias [place] * Over the past 2 weeks, how often have you been bothered by any of the following problems? Question Answer Date of Assessment Author Little interest or pleasure in doing things Several days 07/04/2022 9:26 AM Sivan Dias [place] Feeling down, depressed, or hopeless More than half the days 07/04/2022 9:26 AM Sivan Dias [place] Trouble falling or staying asleep, or sleeping too much Several days 07/04/2022 9:26 AM Sivan Dias [place] Feeling tired or having little energy More than half the days 07/04/2022 9:26 AM Sivan Dias [place] Poor appetite or overeating Several days 07/04/2022 9:26 AM Sivan Dias [place] Feeling bad about yourself - or that you are a failure or have let yourself or your family down Not at all 07/04/2022 9:26 AM Sivan Dias [place] Trouble concentrating on things, such as reading the newspaper or watching television Several days 07/04/2022 9:26 AM Sivan Dias MA Moving or speaking so slowly that other people could have noticed? Or the opposite - being so fidgety or restless that you have been moving around a lot more than usual. Not at all 07/04/2022 9:26 AM Sivan Dias [place] Thoughts that you would be better off or hurting yourself in some way Not at all 07/04/2022 9:26 AM EDT Sivan Gayle MA Patient Health Questionnaire-9 Score 8 07/04/2022 9:26 AM EDT Sivan Gayle [place] documented as of this encounter Plan of Treatment Upcoming Encounters Date Type Department Care Team (Late st Contact Info) Description 09/15/2024 10:00 AM EDT Medication Management [facility] MEDICINE 230 [place] [address] 09/16/2024 9:30 AM EDT Office Visit [facility] ADULT DENTAL 230 [place] [address] Christian Winchester DDS 230 [place] [address] 10/28/2024 10:30 AM EDT Clinical Support [facility] CHC MED & PEDS 505 [place] [address] Amanda Fernández, RN 505 [place] [address] 11/16/2024 11:15 AM EDT Office Visit [facility] MEDICINE 230 [place] [address] Pascual Daly MD 230 [place] [address] 02/17/2025 10:00 AM EDT Office Visit [facility] ADULT DENTAL [address] [place] [address] Gabriela Gaitan 230 [place] [address] documented as of this encounter Goals Goal [...] as of this encounter Care Teams Stave Log Cut Off Saw Operator Relationship Specialty Start Date End Date Pascual Daly MD 230 [place] [address] PCP - General Internal Medicine 02/22/14 Fani Heck, KristiD [address] [place] [address] Pharmacist Internal Medicine 12/16/22 08/15/24 Dasia Waters PharmD [address] [place] [address] Pharmacist Internal Medicine 08/16/24 documented as of this encounter
--- OUTSIDE RECORDS SUMMARY | 2024-09-07 11:18 | XMS_ITS | Encounter Summary ---
Author Organization [employer] Address 75 [facility] 7t [place] [address] Care Team Providers Care Paraprofessional Education Assistant Name Role Phone Pascual Daly MD Primary Care Provide r Fani Heck PharmD Unavailable +2 Dasia Waters PharmD Unavailable [phone] Encounter Details Date Type Department Care Team (Late st Contact Info) Description 03/11/2022 Abstract [facility] MEDICINE [address] [place] [address] Pascual Daly MD 230 [place], [place] [phone] Social History Tobacco Use Types Packs/Day Years [...] 10:00 AM EDT Medication Management [facility] MEDICINE 230 [place], [place] [phone] 09/16/2024 9:30 AM EDT Office Visit [facility] ADULT DENTAL 230 [place], [place] [phone] Christian Winchester DDS 230 [place], [place] [phone] 10/28/2024 10:30 AM EDT Clinical Support [facility] CHC MED & PEDS 505 [place] [address] Amanda Fernández, RN 505 [place] [address] 11/16/2024 11:15 AM EDT Office Visit [facility] MEDICINE [address] [place] [address] Pascual Daly MD 230 [place] [address] 02/17/2025 10:00 AM EDT Office Visit [facility] ADULT DENTAL [address] [place] [address] Gabriela Gaitan 230 [place] [address] documented as of this encounter Visit Diagnoses Not on filedocumented in this encounter Care Teams Paraprofessional Education Assistant Relationship Specialty Start Date End Date Pascual Daly MD [address] [place] [address] PCP - General Internal Medicine 02/22/14 Fani Heck, PharmD [address] [place] [address] Pharmacist Internal Medicine 12/16/22 08/15/24 Dasia Waters, KristiD [address] [place] [address] Pharmacist Internal Medicine 08/16/24 documented as of this encounter
--- OUTSIDE RECORDS SUMMARY | 2024-09-07 11:18 | XMS_ITS | Encounter Summary ---
Author Organization [employer] Address 75 [facility] 7t [place] [address] Care Team Providers Care Gas Derrick Operator Name Role Phone Pascual Daly MD Primary Care Provide r Fani Heck PharmD Unavailable +7 Dasia Waters PharmD Unavailable [phone] Encounter Details Date Type Department Care Team (Late st Contact Info) Description 03/11/2022 Abstract [facility] MEDICINE 230 [place] [address] Fani Heck, PharmD [address] [place] [address] Social History Tobacco Use Types Packs/Day Years [...] Description 09/15/2024 10:00 AM EDT Medication Management [facility] MEDICINE 230 [place], [place] [phone] 09/16/2024 9:30 AM EDT Office Visit [facility] ADULT DENTAL 230 [place], [place] [phone] Christian Winchester DDS 230 [place], [place] [phone] 10/28/2024 10:30 AM EDT Clinical Support [facility] CHC MED & PEDS 505 [place] [address] Amanda Fernández, RN 505 [place], [place] 11/16/2024 11:15 AM EDT Office Visit [facility] MEDICINE 230 [place] [address] Pascual Daly MD [address] [place] [address] 02/17/2025 10:00 AM EDT Office Visit [facility] ADULT DENTAL 230 [place] [address] KandyGabriela 230 [place] [address] documented as of this encounter Visit Diagnoses Not on filedocumented in this encounter Care Teams Gas Derrick Operator Relationship Specialty Start Date End Date Pascual Daly MD [address] [place] [address] PCP - General Internal Medicine 02/22/14 Fani Heck, KristiD [address] [place] [address] Pharmacist Internal Medicine 12/16/22 08/15/24 Dasia Waters, KristiD [address] [place] [address] Pharmacist Internal Medicine 08/16/24 documented as of this encounter
--- OUTSIDE RECORDS SUMMARY | 2024-09-07 11:18 | XMS_ITS | Encounter Summary ---
Author Organization [employer] Address 75 [facility] 7t [place] [address] Care Team Providers Care Return To Factory Clerk Name Role Phone Pascual Daly MD Primary Care Provide r Fani Heck PharmD Unavailable +5 Dasia Waters PharmD Unavailable [phone] Reason for Visit * Reason Comments Med Refill Encounter Details Date Type Department Care Team (Late st Contact Info) Description 01/01/2024 Refill [facility] 230 [place], [place] [phone] Momo Rizo MD 230 [place] [address] Social History Tobacco Use Types Packs/Day Years [...] Description 09/15/2024 10:00 AM EDT Medication Management [address] [address] 09/16/2024 9:30 AM EDT Office Visit [facility] ADULT DENTAL [address] [place] [address] Christian Winchester DDS [address] [place] [address] 10/28/2024 10:30 AM EDT Clinical Support [facility] CHC MED & PEDS 505 [place] [address] Amanda Fernández, RN 505 [place] [address] 11/16/2024 11:15 AM EDT Office Visit [facility] MEDICINE [address] [place] [address] Pascual Daly MD [address] [place] [address] 02/17/2025 10:00 AM EDT Office Visit [facility] ADULT DENTAL [address] [place] [address] Kandy Gabriela 230 [place] [address] documented as of this encounter Goals Goal [...] documented as of this encounter Care Teams Return To Factory Clerk Relationship Specialty Start Date End Date Pascual Daly MD 230 [place] [address] PCP - General Internal Medicine 02/22/14 Fani Heck, PharmD 230 [place] [address] Pharmacist Internal Medicine 12/16/22 08/15/24 Dasia Waters PharmD 230 [place] [address] Pharmacist Internal Medicine 08/16/24 documented as of this encounter
--- OUTSIDE RECORDS SUMMARY | 2024-09-07 11:18 | XMS_ITS | Encounter Summary ---
Author Organization [employer] Address 75 [facility] 7t [place] [address] Care Team Providers Care Brake Mechanic Name Role Phone Pascual Daly MD Primary Care Provide r Fani Heck PharmD Unavailable +3 Dasia Waters PharmD Unavailable [phone] Reason for Visit * Reason Comments Med Refill Encounter Details Date Type Department Care Team (Late st Contact Info) Description 07/16/2022 Refill [facility] MEDICINE 230 [place], [place] [phone] Pascual Daly MD 230 [place], [place] [phone] Social History Tobacco Use Types Packs/Day Years [...] Medication Management [facility] MEDICINE [address] [place] [address] 09/16/2024 9:30 AM EDT Office Visit [facility] ADULT DENTAL [address] [place] [address] Christian Winchester DDS [address] [place] [address] 10/28/2024 10:30 AM EDT Clinical Support [facility] CHC MED & PEDS 505 [place] [address] Amanda Fernández, RN 505 [place] [address] 11/16/2024 11:15 AM EDT Office Visit [facility] MEDICINE [address] [place] [address] Pascual Daly MD 230 [place] [address] 02/17/2025 10:00 AM EDT Office Visit [facility] ADULT DENTAL [address] [place] [address] Gabriela Gaitan [address] [place] [address] documented as of this encounter Goals Goal [...] documented as of this encounter Care Teams Brake Mechanic Relationship Specialty Start Date End Date Pascual Daly MD [address] [place] [address] PCP - General Internal Medicine 02/22/14 Fani Heck, KristiD 230 [place] [address] Pharmacist Internal Medicine 12/16/22 08/15/24 Dasia Waters PharmD 230 [place] [address] Pharmacist Internal Medicine 08/16/24 documented as of this encounter
--- OUTSIDE RECORDS SUMMARY | 2024-09-07 11:18 | XMS_ITS | Data Portability ---
Author Organization [employer], Id in - OMEGA MORGAN Address [address] [place] [id number] Care Team Providers Care Tandem Mill Roller Name Role Phone [facility] Referring Provider [phone] Assessment Encounter Date Assessment Date Assessment LastModified by Organization Details LastModified Time 04/11/2023 04/11/2023 I provided real -time medical direction via phone for this encounter, and was available for additional phone based assistance as needed. I have reviewed and agree with the Assessment and Plan as documented by the Needle Punch Operator. Patient given the opportunity to ask questions. Advised to call for another visit over the weekend if not improving in 2 to 3 days however if develops CP/severe SOB/turning blue/uncontrolle d n/v/d or black/bloody emesis or stool/ AMS/ syncope/ hi fever unresponsive to APAP to call 911- verbalized understanding of instructions [email or web address] Not available 04/12/2023 10:53:05 Plan of Treatment [...] Not available Not available Not available 04/11/2023 [id number] RxNorm Anitha Camacho MD [address] [facility],[address], [place], [address] [facility] [employer] 3 14:49:47 4127 Celebrex medicatio n Not available Not available Not available 04/11/2023 [id number] RxNoalex Camacho MD [address] [facility],[address], [place], [address], [employer] 14:49:57 4128 tramadol medicatio n Not available Not available Not available 04/11/2023 [id number] RxGeovanny Camacho MD [address] [facility],[address], [place], [address], [address] 14:50:04 Medications Name Sig Start Date Stop [...] Available Not Available No t Available FreeStyle [place] Lite kit USE DIRECTED active Not Available [...] Updated DateTime 3 97 % 97 % 36253.5 36 g 18 /min 97.8 [degF] 88 /min 167 mm[Hg] 84 mm[Hg] Not Available [employer] - production 3 14:49:26 Social History None recorded. Functional Status None recorded. Mental Status None recorded. Family History Nothing Reported. Medical History No medical history recorded. Gynecological HistoryNo gynecological history recorded. Obstetrics History GPAL:G 0 P 0 0 0 0 Past Encounters Encounter ID Performer Location Encounter Start Date Encounter Closed Date Diagnosis/Indication Diagnosis SNOMED-CT Code Diagnosis ICD10 Code Diagnosis Note [id number] Anitha Camacho MD Main - [facility] [address] [place] [address] 04/11/2023 14:49:23 08/20/2024 13:15:45 Respiratory syncytial virus infection 01773611 B97.4 Continue medication s as prescribed ., Rest, stay hydrated. Offered Tessalon but declines due to cough. Health Concerns Section Related Observation LastModified by Organization Detai ls LastModified Time None Recorded Concern Status LastModified by Organization Details LastModified Time None Recorded Advance Directives Directive None Recorded Payers Insurance Date Sequence Insurance Name Policy Number Policy Patten Covered Member ID Patten Member ID Guarantor Name 08/20/2024 1 [facility] - DOS ON OR AFTER 2022 - DUAL ELIGIBLE - RESIDENTIAL OPTIONS AND ONE CARE (MEDICARE REPLACEMENT/ADV ANTAGE - HMO) Brandie Santana [id number] Brandie Ryanyes Notes Date Note Type Note Provider Name and Address Organization Details Recorded Time 04/11/2023 text/html HPI: 73 year old, Sammarinese speaking member, F, with hx of DM, HTN, Asthma, Depression, hx of falls and chronic pain, reporting worsesing Productive cough, shortness of breath with activities and fatigue, worsening head aches, treated at [facility] on 04/10/23 and dx with RSV. Reported has fever and chills, believes her BP is high. Her NEWSPAPER CORRESPONDENT worker is with her and member asked [...] .................. .................. .................. .................. .................. .................. ............... Needle Punch Operator Note From Teddy Miranda: Pt sts dis not call for [employer]. [facility] set up appt. Pt was in ER yesterday diagnosed with RSV treated RX for ventalin and prednisone. Pt denies cp sob fever nausea diarrhea. Baseline vitals assessed. Lungs clear. No edema. [facility] contacted ..pt declined benzonatate. Pt advised self care and continue with RX meds. Pt education on signs indicating the ER. Needle Punch Operator Allergies: Lorazepam .................. .................. .................. .................. .................. .................. .................. ............... Disposition: Fulfilled Comments: Reviewed - Johana RNSEGMD: Patient seen yesterday evening [facility]. COvid negative per patient/ RSV +/She is using her albuterol every 4 hours. She is on prednisone. No nausea vomiting.Pat has hx that includes but not limited to: DM2/COPD/HTN/Fe deficiency anemia/hypothyroid ism/MDD with psychotic features/obesity status post laparoscopic gastrectomy/positi ve SUSAN/fibromyalgia. Anitha Camacho MD [address] [facility],[address], [place], [address], [place] [employer] 04/12/2023 10:53:56 OBGyn Episode No OBEpisode recorded.
--- OUTSIDE RECORDS SUMMARY | 2024-09-07 11:18 | XMS_ITS | Encounter Summary ---
Author Organization [employer] Address [address] [facility] 7[address] [place] [address] Care Team Providers Care Pluck Trimmer Name Role Phone Pascual Daly MD Primary Care Provide r Fani Heck PharmD Unavailable [phone] Dasia Waters PharmD Unavailable [phone] Reason for Visit * Reason Onset Date Comments Med Refill 01/13/2024 Encounter Details Date Type Department Care Team (Late st Contact Info) Description 01/13/2024 Telephone [facility] MEDICINE [address] [place], [place] [phone] Pascual Daly MD 230 [place] [address] Med Refill Social History Tobacco Use Types [...] to: [facility] [place], [place] - [address] [place] [address] documented in this encounter Plan of Treatment Upcoming Encounters Date Type Department Care Team ([facility] st Contact Info) Description 09/15/2024 10:00 AM EDT Medication Management [facility] MEDICINE [address] [place] [address] 09/16/2024 9:30 AM EDT Office Visit [facility] ADULT DENTAL [address] [place] [address] Christian Winchester DDS [address] [place] [address] 10/28/2024 10:30 AM EDT Clinical Support [facility] CHC MED & PEDS [address] [place] [address] Amanda Fernández, RN [address] [facility] [place] [address] 11/16/2024 11:15 AM EDT Office Visit [facility] MEDICINE 230 [facility] [place] [address] Pascual Daly MD 230 [facility] [place] 02/17/2025 10:00 AM EDT Office Visit [facility] ADULT DENTAL [address] [facility] [place], [place] [phone] Kandy, Gabriela [address] [place] [address] documented as of this encounter Goals Goal [...] documented as of this encounter Care Teams Pluck Trimmer Relationship Specialty Start Date End Date Pascual Daly MD [facility] [place] [address] PCP - General Internal Medicine 02/22/14 Fani Heck, PharmD [facility] [place] [address] Pharmacist Internal Medicine 12/16/22 08/15/24 Dasia Waters, KristiD [facility] [place] [address] Pharmacist Internal Medicine 08/16/24 documented as of this encounter
--- OUTSIDE RECORDS SUMMARY | 2024-09-07 11:18 | XMS_ITS | Encounter Summary ---
Author Organization [employer] Address [address] [facility] [address] [place] [address] Care Team Providers Care Licensed Sales Producer Name Role Phone Pascual Daly MD Primary Care Provide r Fani Heck PharmD Unavailable [phone] Dasia Waters PharmD Unavailable [phone] Reason for Visit * Reason Comments Med Refill Encounter Details Date Type Department Care Team (Late st Contact Info) Description 10/21/2023 Refill [facility] MEDICINE [address] [place] [address] Titi Gray FNP Major depressive disorder with [...] 09/15/2024 10:00 AM EDT Medication Management [facility] MEDICINE [address] [place] [address] 09/16/2024 9:30 AM EDT Office Visit [facility] ADULT DENTAL [address] [place] [address] Christian Winchester DDS [address] [place] [address] 10/28/2024 10:30 AM EDT Clinical Support [facility] CHC MED & PEDS [address] [place] [address] Amanda Fernández, AALIYAH [address] [place] [address] 11/16/2024 11:15 AM EDT Office Visit [facility] MEDICINE [address] [place] [address] Pascual Daly MD [address] [place] [address] 02/17/2025 10:00 AM EDT Office Visit [facility] ADULT DENTAL [address] [place] [address] Gabriela Gaitan [address] [place] [address] documented as of this encounter Goals Goal [...] as of this encounter Care Teams Licensed Sales Producer Relationship Specialty Start Date End Date Pascual Daly MD [address] [place] [address] PCP - General Internal Medicine 02/22/14 Fani Heck, KristiD [address] [place] [address] Pharmacist Internal Medicine 12/16/22 08/15/24 Dasia Waters PharmD [address] [place] [address] Pharmacist Internal Medicine 08/16/24 documented as of this encounter
--- OUTSIDE RECORDS SUMMARY | 2024-09-07 11:18 | XMS_ITS | Encounter Summary ---
Author Organization [employer] Address [address] [facility] 7t [place] [address] Care Team Providers Care Coconut Candy Maker Name Role Phone Pascual Daly MD Primary Care Provide r Fani Hekc PharmD Unavailable [phone] Dasia Waters PharmD Unavailable [phone] Reason for Visit * Reason Onset Date Comments Med Refill 10/11/2022 Encounter Details Date Type Department Care Team (Late st Contact Info) Description 10/11/2022 Telephone [facility] MEDICINE [address] [place], [place] [phone] Pascual Daly MD [address] [place], [place] [phone] Med Refill Social History Tobacco Use Types [...] Upcoming Encounters Date Type Department Care Team ([facility] st Contact Info) Description 09/15/2024 10:00 AM EDT Medication Management [facility] MEDICINE [address] [place] [address] 09/16/2024 9:30 AM EDT Office Visit [facility] ADULT DENTAL [address] [place] [address] Christian Winchester DDS [address] [place] [address] 10/28/2024 10:30 AM EDT Clinical Support [facility] CHC MED & PEDS [address] [place] [address] Amanda Fernández, RN [address] [place] [address] 11/16/2024 11:15 AM EDT Office Visit [facility] MEDICINE [address] [place] [address] Pascual Daly MD [address] [place] [address] 02/17/2025 10:00 AM EDT Office Visit [facility] ADULT DENTAL [address] [place] [address] Gabriela Gaitan [address] [place] [address] documented as of this encounter Goals Goal [...] documented as of this encounter Care Teams Coconut Candy Maker Relationship Specialty Start Date End Date Pascual Daly MD [address] [place] [address] PCP - General Internal Medicine 02/22/14 Fani Heck, KristiD [address] [place] [address] Pharmacist Internal Medicine 12/16/22 08/15/24 Dasia Waters PharmD [address] [place] [address] Pharmacist Internal Medicine 08/16/24 documented as of this encounter
--- OUTSIDE RECORDS SUMMARY | 2024-09-07 11:18 | XMS_ITS | Encounter Summary ---
Author Organization [employer] Address [address] [facility] [address] [place] [address] Care Team Providers Care Mannequin Mold Maker Name Role Phone Pascual Daly MD Primary Care Provide r Fani Heck PharmD Unavailable [phone] Dasia Waters PharmD Unavailable [phone] Reason for Visit * Reason Comments Med Refill Encounter Details Date Type Department Care Team (Late st Contact Info) Description 10/21/2023 Refill [facility] MEDICINE [address] [place] [address] Titi Gray FNP Major depressive disorder with [...] 10:00 AM EDT Medication Management [facility] MEDICINE [address] [place] [address] 09/16/2024 9:30 AM EDT Office Visit [facility] ADULT DENTAL [address] [place] [address] Christian Winchester DDS [address] [place] [address] 10/28/2024 10:30 AM EDT Clinical Support [facility] CHC MED & PEDS [address] [place] [address] Amanda Fernández, AALIYAH 505 [place] [address] 11/16/2024 11:15 AM EDT Office Visit [facility] MEDICINE [address] [place] [address] Pascual Daly MD [address] [place] [address] 02/17/2025 10:00 AM EDT Office Visit [facility] ADULT DENTAL [address] [place] [address] Gabriela Gaitan [address] [place] [address] documented as of this encounter Goals Goal [...] documented as of this encounter Care Teams Mannequin Mold Maker Relationship Specialty Start Date End Date Pascual Daly MD [address] [place] [address] PCP - General Internal Medicine 02/22/14 Fani Heck, KristiD 230 [place] [address] Pharmacist Internal Medicine 12/16/22 08/15/24 Dasia Waters PharmD [address] [place] [address] Pharmacist Internal Medicine 08/16/24 documented as of this encounter
== END 2024-09-07 10:51 | disposition home or self-care (01) ==
LOC: HO.ENCR 10:04
PROVIDERS: PCP Internal Medicine; Visit Provider Nurse Practitioner Adult Health
DX: E10.649 Type 1 diabetes mellitus with hypoglycemia without coma (principal); E03.8 Other specified hypothyroidism; E06.3 Autoimmune thyroiditis; E21.1 Secondary hyperparathyroidism, not elsewhere classified
CPT/HCPCS: 99214; G2211

== ENCOUNTER → 2024-09-07 10:04 | Outpatient (BNVA) | payer OTHER, SELFPAY | PROVIDERS: PCP Internal Medicine; Visit Provider Nurse Practitioner Adult Health | DX: E10.649 Type 1 diabetes mellitus with hypoglycemia without coma (principal); E03.8 Other specified hypothyroidism; E06.3 Autoimmune thyroiditis; E21.1 Secondary hyperparathyroidism, not elsewhere classified; Z79.4 Long term (current) use of insulin | CPT/HCPCS: 82947; 83036; 99212 ==

== ENCOUNTER 2024-10-07 08:47 | Outpatient (AMB) | payer OTHER, SELFPAY ==
--- NOTE | 2024-10-07 08:53 | MHC.OFFVIS ---
Vital Signs 10/07/24 08:57 Height 4 ft 11 in Weight 155 lb BMI 31.3 BP 114/64 Blood Pressure Location Rt brachial Position Sitting Pulse 90 Pulse Source Pulse Oximeter Pulse Oximetry (%) 94 Oxygen Delivery Method Room Air Intake Visit Reasons: Eval LI\inzess change Intake Note: Est pt for GERD + CIC mgmt. Linzess eval response. CC; Pt denies any specific GI sx or concerns at this time. Confirms that Linzess is working well for her. Gear Grinding Machine Operator Required: Yes Gear Grinding Machine Operator Services: Gear Grinding Machine Operator Present Gear Grinding Machine Operator Name: [facility] Victoria Saeed [id number] Information Interpreted: clinical only Accompanied by: Family/Other Allergies lorazepam (LORAZEPAM) Allergy (Severe, Verified 10/07/24 08:53) DELIRIUM celecoxib (From Celebrex) Allergy (Intermediate, Verified 10/07/24 08:53) ITCHING tramadol (TRAMADOL) Allergy (Intermediate, Verified 10/07/24 08:53) ITCHING zolpidem (Ambien) Allergy (Unknown, Verified 10/07/24 08:53) unknown HPI HPI Eval LI\inzess change: Details: Assessment & Plan (1) GERD (gastroesophageal reflux disease): Code(s): K21.9 - Gastro-esophageal reflux disease without esophagitis Category: Medical (2) Chronic idiopathic constipation: Code(s): K59.04 - Chronic idiopathic constipation Category: Medical Plan [place] #[employer] Linzess 290 and her esomeprazole. She wants to decrease the LInzess dose as she is having too much fecal urgency. Will lower to 145mcg and titrate. She also c/o bloating and will rx simethicone 125mg chewable. Her nexium works well. ROV next available. Medications: New linaclotide (Linzess) Take first thing in the morning with a full glass of water. 145 mcg PO QAM 30 caps 12RF K58.1 - Irritable bowel syndrome with constipation simethicone (Gas Relief (simethicone)) 125 mg PO BID-QID PRN 90 tabs 12RF abdominal distention Refilled esomeprazole magnesium 40 mg PO DAILY 30 caps 6RF K21.9 - Gastro-esophageal reflux disease without esophagitis Discontinued linaclotide (Linzess) Discontinued Reason: Doctor's Order 290 mcg PO QAM 30 caps 6RF K59.04 - Chronic idiopathic constipation TODAY'S VISIT Cuban #Amy Burch She is here today with a female family member who is supportive. She is doing better on the lower dose of 145mcg of Linzess instead of the 290. She also continues on her simiethicone and esomeprazole. She is dressed so pretty today! She likes to dress up for her appointments. ROV 6 mos. [facility] Medical History Heart palpitations Hypoglycemia due to insulin Elevated parathyroid hormone Osteoporosis Hyperlipidemia (04/21/1959) Depressive disorder (04/21/1959) Nutritional anemia (04/21/1959) Shortness of breath Hypothyroidism (04/21/1959) Anemia Chronic gastritis NSTEMI (non-ST elevated myocardial infarction) Recurrent falls (12/04/11) Iron deficiency anemia (04/21/1959) Fibromyositis (04/21/1959) Eczema (04/21/1959) High risk medication use Hepatitis C antibody positive in blood Screening for osteoporosis Screening for viral disease Joint swelling Overweight (BMI 25.0-29.9) Neck pain Swelling of knee joint, right Intra-abdominal abscess Diabetes Elevated liver function tests Intestinal malabsorption following gastrectomy Obesity (BMI 30-39.9) 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 Hypertension Cholecystitis Hyperlipidemia, unspecified Essential hypertension Atherosclerotic cardiovascular disease Fibromyalgia Folliculitis Anxiety Depression History of myocardial infarction Diabetes type 1, uncontrolled 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 Mother CVA (cerebral vascular accident) Sister Hypertension Brother Hypertension Liver cancer Social History Household Members: None Housing: Apartment Are you a primary critical care nurse practitioner to a significant other at home: No Do you presently have visiting nurse or other home services: Yes Unable to assess alcohol history related to: Unable to respond Alcohol intake: never Patient Tobacco Use Status: Never used Tobacco Advance Directives Date on File: 09/17/23 service: No Current occupational status: disabled Current occupation: right hand dominant Review of Systems Const Denies fatigue, Denies fever(s), Denies night sweats, Denies poor appetite and Denies weight loss ENT Reports Normal hearing present, Denies dental pain, Denies dysphagia, Denies hearing loss, Denies mouth pain, Denies odynophagia, Denies throat swelling, Denies tongue swelling and Reports other (Dentition adequate) Card Reports no additional complaints Resp Reports no additional complaints GI Details: Denies abdominal pain, Denies melena, Reports bloating, Denies hematochezia, Reports constipation, Denies GI cramping, Denies dysphagia, Denies excessive flatus, Denies early satiety, Reports heartburn, Denies diarrhea, Denies nausea, Denies odynophagia, Denies vomiting and Denies hematemesis Skin/Breast Denies pruritus, Denies lesions, Denies rash and Denies jaundice Neuro Reports Normal hearing present and Denies Abnormal speech present Endo Denies fatigue Aller/Immun Denies throat swelling and Denies tongue swelling Physical Exam Vital Signs: Last Vital Signs Pulse 90 10/07/24 08:57 BP 114/64 10/07/24 08:57 Pulse Ox 94 10/07/24 08:57 Oxygen Delivery Method Room Air 10/07/24 08:57 BMI result Body Mass Index 31.3 Const General: cooperative, no acute distress, well developed and well groomed Nutritional Appearance: well nourished and obese Orientation/consciousness: oriented to person, oriented to place and oriented to time Limitations: language barrier and ambulation with cane HEENT Head: Yes normocephalic and Yes atraumatic Eyes General: appearance normal, both eyes and all related structures Pupils: Equal, round and reactive pupils present Neck Neck: Yes normal visual inspection and Yes no lymphadenopathy Thyroid: Thyroid normal Resp Effort & Inspection: normal respiratory effort and able to speak in complete sentences Auscultation: clear to auscultation bilaterally Cardio Rate: regular rate Rhythm: regular rhythm Heart sounds: Normal, physiologic split S2 sound present Peripheral pulses: radial pulses present and posterior tibial pulses present GI Inspection: No distended and No Abdominal panniculus present Palpation (GI): Soft to palpation, nontender, no guarding, not rigid, No hepatosplenomegaly present and Hepatosplenomegaly present Percussion: Yes normal to percussion Auscultation: normal bowel sounds Rectal Exam - Female: deferred Skin General skin exam: no rashes or lesions noted, turgor normal, skin not dry, no jaundice, No spider nevi and no striae Rashes: no rashes Nails: normal Neuro General: oriented to person, oriented to place and oriented to time Cranial nerves: Yes Equal, round and reactive pupils present and Yes Normal hearing present Speech: No Abnormal speech present Extrem General: Yes normal to inspection, No clubbing, No cyanosis and No edema Psych Appearance: grossly normal and well kempt Mental Status: mental status grossly normal Speech and movement: Normal speech and movement present Affect: normal affect Attitude: cooperative Thought process: Circumstantial thought process present and not confabulating Thought content: Normal thought content present Insight: Limited insight present (Psych) Judgement: Limited judgement present (Psych) Assessment & Plan Assessment & Plan (1) Chronic idiopathic constipation: Code(s): K59.04 - Chronic idiopathic constipation Category: Medical (2) GERD (gastroesophageal reflux disease): Code(s): K21.9 - Gastro-esophageal reflux disease without esophagitis Category: Medical Plan Cuban #Amy Burch She is here today with a female family member who is supportive. She is doing better on the lower dose of 145mcg of Linzess instead of the 290. She also continues on her simiethicone and esomeprazole. She is dressed so pretty today! She likes to dress up for her appointments. ROV 6 mos. Coding Level of Care Code Est Pt Level 3 (01856) Diagnoses Chronic idiopathic constipation K59.04 GERD (gastroesophageal reflux disease) K21.9
[2024-10-07 08:57] VITALS: BP 114/64; PULSE 90; O2SAT 94; BMI 31.3
--- OUTSIDE RECORDS SUMMARY | 2024-10-07 09:11 | XMS_ITS | Encounter Summary ---
Author Organization [employer] Address [address] [facility] [address] [place] [address] Care Team Providers Care Protection Consultant Name Role Phone Pascual Daly MD Primary Care Provide r Fani Heck PharmD Unavailable [phone] Dasia Waters PharmD Unavailable [phone] Reason for Visit * Reason Comments Med Refill Encounter Details Date Type Department Care Team (Late st Contact Info) Description 03/27/2023 Refill [facility] MED & PEDS [address] [place] [address] Titi Gray FNP Major depressive disorder with [...] Care Team (Late st Contact Info) Description 10/14/2024 10:00 AM EDT Medication Management [facility] MEDICINE [address] [place] [phone] Dasia Waters, PharmD [address] [place] [phone] 10/28/2024 10:30 AM EDT Clinical Support [facility] MED & PEDS [address] [place] [address] Amanda Fernández, RN [address] [place] [address] 11/05/2024 9:00 AM EDT Office Visit [facility] ADULT DENTAL [address] [place] [phone] Christian Winchester DDS [address] [place] [phone] 11/16/2024 11:15 AM EDT Office Visit [facility] MEDICINE [address] [place] [phone] Pascual Daly MD [address] [place] [phone] 02/17/2025 10:00 AM EDT Office Visit [facility] ADULT DENTAL [address] [place] [address] Gabriela Gaitan [address] [place] [address] documented as of this encounter Goals Goal Patient Goal Type Associated Problems Recent Progress Patient-Stated? Author Blood Pressure < 140/90 Blood Pressure 138/76( 025 8:58 AM EDT) No Fani Heck, PharmD documented as of this encounter Visit Diagnoses Diagnosis Major depressive disorder with psychotic features (CMS/HCC) documented in this encounter Additional Health Concerns Assessment Noted Time PHQ-9 Depression Total Score: 9 02/25/20 23 11:02 AM EST documented as of this encounter Care Teams Protection Consultant Relationship Specialty Start Date End Date Pascual Daly MD [address] [place] [phone] PCP - General Internal Medicine 02/22/14 Fani Heck, PharmD [address] [place] [phone] Pharmacist Internal Medicine 12/16/22 08/15/24 Dasia Waters, KristiD [address] [place] [phone] Pharmacist Internal Medicine 08/16/24 documented as of this encounter
== END 2024-10-07 09:13 | disposition home or self-care (01) ==
PROVIDERS: PCP Internal Medicine; Visit Provider Nurse Practitioner
DX: K59.04 Chronic idiopathic constipation (principal); K21.9 Gastro-esophageal reflux disease without esophagitis
CPT/HCPCS: 99213

== ENCOUNTER → 2024-10-07 08:47 | Outpatient (BNVA) | payer OTHER, SELFPAY | PROVIDERS: PCP Internal Medicine; Visit Provider Nurse Practitioner | DX: K59.04 Chronic idiopathic constipation (principal); K21.9 Gastro-esophageal reflux disease without esophagitis | CPT/HCPCS: 99212 ==

== ENCOUNTER 2024-10-12 09:14 | Outpatient (AMB) | payer OTHER, SELFPAY ==
--- NOTE | 2024-10-12 09:24 | A.OFFVIS_ITS ---
Vital Signs 10/12/24 09:25 Height 4 ft 11 in Weight 155 lb BMI 31.3 Intake Visit Reasons: NewProb: Left RF trigger finger, discuss sx Intake Note: Brandie is a right dominant hand female who presents today for an evaluation of left ring finger locking and catching. Patient states her ring finger catches and locks. She states this started about 1.5 yrs ago and has worsen since. Reports she has weakness and is not able to bring her finger to staighten out. Hx of trigger injection about 1 year ago with no help. Denies numbness or tingling. Cloth Feeder Name: Jeaneth LIZARRAGA/JONNY Allergies lorazepam (LORAZEPAM) Allergy (Severe, Verified 10/12/24 09:31) DELIRIUM celecoxib (From Celebrex) Allergy (Intermediate, Verified 10/12/24 09:31) ITCHING tramadol (TRAMADOL) Allergy (Intermediate, Verified 10/12/24 09:31) ITCHING zolpidem (Ambien) Allergy (Unknown, Verified 10/12/24 09:31) unknown HPI HPI NewProb: Left RF trigger finger, discuss sx: Details: Brandie is a right dominant hand female who presents today for an evaluation of left ring finger locking and catching. Patient states her ring finger catches and locks. She states this started about 1.5 yrs ago and has worsen since. Reports she has weakness and is not able to bring her finger to staighten out. Hx of trigger injection about 1 year ago with no help. Denies numbness or tingling. [facility], [facility] Medical History Heart palpitations Hypoglycemia due to insulin Elevated parathyroid hormone Osteoporosis Hyperlipidemia (04/21/1959) Depressive disorder (04/21/1959) Nutritional anemia (04/21/1959) Shortness of breath Hypothyroidism (04/21/1959) Anemia Chronic gastritis NSTEMI (non-ST elevated myocardial infarction) Recurrent falls (12/04/11) Iron deficiency anemia (04/21/1959) Fibromyositis (04/21/1959) Eczema (04/21/1959) High risk medication use Hepatitis C antibody positive in blood Screening for osteoporosis Screening for viral disease Joint swelling Overweight (BMI 25.0-29.9) Neck pain Swelling of knee joint, right Intra-abdominal abscess Diabetes Elevated liver function tests Intestinal malabsorption following gastrectomy Obesity (BMI 30-39.9) 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 Hypertension Cholecystitis Hyperlipidemia, unspecified Essential hypertension Atherosclerotic cardiovascular disease Fibromyalgia Folliculitis Anxiety Depression History of myocardial infarction Diabetes type 1, uncontrolled 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 Mother CVA (cerebral vascular accident) Sister Hypertension Brother Hypertension Liver cancer Social History Household Members: None Housing: Apartment Are you a primary foster care case manager to a significant other at home: No Do you presently have visiting nurse or other home services: Yes Unable to assess alcohol history related to: Unable to respond Alcohol intake: never Patient Tobacco Use Status: Never used Tobacco Advance Directives Date on File: 09/17/23 service: No Current occupational status: disabled Current occupation: right hand dominant Review of Systems Const All systems reviewed & are unremarkable except as noted in HPI and below Physical Exam Vital Signs: BMI result Body Mass Index 31.3 Extrem Other: Patient is alert, oriented, and in no acute distress. Neuro: Normal sensation of the tips of all digits of the left hand at this time Vascular: Cap refill brisk Pain: Pain with extension of the left ring finger No tenderness to palpation anywhere in the left hand ROM: Patient is noted to be holding in the left ring finger in approximately 90 degr ees of flexion Patient is able to be actively extended fully at the MCP joint, but immediately returns to a flexed position Skin: No lacerations or abrasions. General: No ecchymosis, erythema, or evidence of infection. Psych: Appears grossly normal Affect normal Attitude cooperative Assessment & Plan Assessment & Plan (1) Contracture of joint of finger of left hand: Code(s): M24.542 - Contracture, left hand Category: Medical Plan 1. 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 Aggarwal for evaluation of flexion contracture of left ring finger No locking and catching, no evidence consistent with trigger finger Patient is amenable to this plan Follow-up for next available appointment with Dr. Aggarwal Coding Level of Care Code New Pt Level 3 (97567) Diagnoses Contracture of joint of finger of left hand M24.542
[2024-10-12 09:25] VITALS: BMI 31.3
--- OUTSIDE RECORDS SUMMARY | 2024-10-12 09:52 | XMS_ITS | Encounter Summary ---
Author Organization [employer] Address [address] [facility] 7[address] [place] [address] Care Team Providers Care Clarifying Plant Operator Name Role Phone Pascual Daly MD Primary Care Provide r Fani Heck PharmD Unavailable [phone] Dasia Waters PharmD Unavailable [phone] Reason for Visit * Reason Comments Med Refill Encounter Details Date Type Department Care Team (Late st Contact Info) Description 03/27/2023 Refill [facility] MED & PEDS [address] [place] [address] Titi Gray FNP Major depressive disorder with [...] Description 10/14/2024 10:00 AM EDT Medication Management [facility] MEDICINE [address] [place] [phone] Dasia Waters, PharmD [address] [place] [phone] 10/28/2024 10:30 AM EDT Clinical Support [facility] CHC MED & PEDS [address] [place] [address] Amanda Fernández, RN [address] [place] [address] 11/05/2024 9:00 AM EDT Office Visit [facility] ADULT DENTAL [address] [place] [phone] Christian Winchester DDS [address] [place] [phone] 11/16/2024 11:15 AM EDT Office Visit [facility] MEDICINE [address] [place] [phone] Pascual Daly MD [address] [place] [phone] 02/17/2025 10:00 AM EDT Office Visit [facility] ADULT DENTAL [address] [place] [address] Gabriela Gaitan [address] [place] [address] documented as of this encounter Goals Goal [...] documented as of this encounter Care Teams Clarifying Plant Operator Relationship Specialty Start Date End Date Pascual Daly MD [address] [place] [phone] PCP - General Internal Medicine 02/22/14 Fani Heck, PharmD [address] [place] [phone] Pharmacist Internal Medicine 12/16/22 08/15/24 Dasia Waters, KristiD [address] [place] [phone] Pharmacist Internal Medicine 08/16/24 documented as of this encounter
== END 2024-10-12 09:48 | disposition home or self-care (01) ==
LOC: HO.HOS 09:15
PROVIDERS: PCP Internal Medicine
DX: M24.542 Contracture, left hand (principal)
CPT/HCPCS: 99213

== ENCOUNTER → 2024-10-12 09:14 | Outpatient (BNVA) | payer OTHER, SELFPAY | PROVIDERS: PCP Internal Medicine | DX: M24.542 Contracture, left hand (principal) | CPT/HCPCS: 99212 ==

== ENCOUNTER 2024-10-26 08:32 | Outpatient (AMB) | payer OTHER, SELFPAY ==
--- OUTSIDE RECORDS SUMMARY | 2024-10-26 08:43 | XMS_ITS | Clinical Summary ---
Author Organization [address] [place] [address] Address [address] [place] [address] Phone Care Team Providers Care Cable Television Technician Name Role Phone Pascual Darnell MD Primary Care Provi chio Allergies Active Allergy Reactions Criticality Noted Date Comments Clonazepam 09/02/2024 Medications No known medications Encounters Date Type Department Care Team Description 09/02/2024 10:30 AM EDT Consult Orthopedic Surgery [facility] [address] [facility] [address] [place] [address] Luciano Smith, DPM Dermatophytosis of nail (Primary Dx); Type [...] AM EDT Office Visit Orth[facility] - [place] [address] [facility] [address] [place] [address] Luciano Smith, DPM [address] [facility] [address] [place] [address] Health Maintenance Due Date Last Done Comments [...] Diabetes: Annual Urine Albumin-Creatinine Ratio (uACR) 06/18/2024 Influenza Vaccine (#1) 2024 , 03/11/2023, 01/15/2023, Additional history exists Depression Screening 01/28/2025 01/29/2024 Diabetes: Blood Sugar [...] exists RSV Immunization Adult Patients Completed 06/12/2023 HIB Vaccines Aged Out No longer eligi [...] fective 2015-Present) Name:Brandie Santana Relation to Subscriber:Self Name:MaxBrandie Payer ID:[id number] Group ID:[id number] Type:Not on file Address: [place] [address] [address] [place] [address] Care Teams Cable Television Technician Relationship Specialty Start Date End Date Pascual Darnell MD [address] [place] [address] [phone] PCP - General Internal Medicine 06/18/24
--- OUTSIDE RECORDS SUMMARY | 2024-10-26 08:43 | XMS_ITS | Encounter Summary ---
Author Organization [employer] Address [address] [facility] [address] [place] [address] Care Team Providers Care Centrifugal Station Operator Name Role Phone Pascual Daly MD Primary Care Provide r Fani Heck PharmD Unavailable + Dasia Waters PharmD Unavailable [phone] Reason for Visit * Reason Comments Med Refill Encounter Details Date Type Department Care Team (Late st Contact Info) Description 03/27/2023 Refill [facility] MED & PEDS [address] [place] [address] Titi Gray FNP Major depressive disorder with [...] Care Team (Late st Contact Info) Description 10/28/2024 10:30 AM EDT Clinical Support [facility] CHC MED & PEDS [address] [place] [address] Amanda Fernández, RN [address] [place] [address] 11/05/2024 9:00 AM EDT Office Visit [facility] ADULT DENTAL [address] [place] [phone] Christian Winchester DDS [address] [place] [phone] 11/16/2024 11:15 AM EDT Office Visit [facility] MEDICINE [address] [place] [phone] Pascual Daly MD [address] [place] [phone] 01/03/2025 10:00 AM EDT Medication Management [facility] MEDICINE [address] [place] [phone] Dasia Waters, PharmD [address] [place] [phone] 02/17/2025 10:00 AM EDT Office Visit [facility] ADULT DENTAL [address] [place] [address] Gabriela Gaitan [address] [place] [address] documented as of this encounter Goals Goal Patient Goal Type Associated Problems Recent Progress Patient-Stated? Author Blood Pressure < 140/90 Blood Pressure 128/62( 025 3:18 PM EDT) No Fani Heck, PharmD documented as of this encounter Visit Diagnoses Diagnosis Major depressive disorder with psychotic features (CMS/HCC) documented in this encounter Additional Health Concerns Assessment Noted Time PHQ-9 Depression Total Score: 9 02/25/20 23 11:02 AM EST documented as of this encounter Care Teams Centrifugal Station Operator Relationship Specialty Start Date End Date Pascual Daly MD [address] [place] [phone] PCP - General Internal Medicine 02/22/14 Fani Heck, PharmD [address] [place] [address] [phone] Pharmacist Internal Medicine 12/16/22 08/15/24 Dasia Waters, KristiD [address] [place] [phone] Pharmacist Internal Medicine 08/16/24 documented as of this encounter
--- OUTSIDE RECORDS SUMMARY | 2024-10-26 08:43 | XMS_ITS | Data Portability ---
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 Plan of Treatment Reminders Order Date Submit Date Provider Last Modified By Organization Details Last Modified Time Details Appointments None recorded. Lab None recorded. Referral None recorded. Procedures None recorded. Surgeries None recorded. Imaging None recorded. Medication Orders oxycodone 5 mg tablet 2023 024 [facility] , [address] [place] [address], [address], 4 21:23:28 oxycodone 5 mg tablet 2023 024 [facility] , [address] [place] [address], [address], 4 13:28:18 Patient TargetsNo targets recorded. Patient InstructionsNo instructions recorded. Reason for Referral None Reported. 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 2023 Dori Pena NP [address] [facility] [facility], [address], [place], [address], [facility] [employer] 4 15:49:21 Hypertensive disorder 64394442 Active 2023 Dori Pena NP [address], [address], [place], [address], [facility] 4 15:49:57 Gastroesophage al reflux disease 984026911 Active 2023 Dori Pena NP [address], [address], [place], [address], [facility] 4 15:51:24 Rheumatoid arthritis 57504755 Active 2023 Dori Pena NP [address], [place], [address], [facility] 4 15:51:29 Mixed anxiety and depressive disorder 386094461 Active 2023 Dori Pena NP [address], [place], [address], [facility] 4 15:51:45 Obesity 709188743 Active 2023 Dori Pena NP [address], [place], [address], [facility] 4 15:51:51 Closed flail chest 034373637 Active 2023 Dori Pena NP [address], [place], [address], [facility] 4 15:52:35 Asthenia 24358725 Active 2023 Dori Pena NP [address], [place], [address], [facility] 4 15:52:46 Irritable bowel syndrome 58470068 Active 2023 Dori Pena NP [address], [place], [address], [facility] 4 16:06:46 Recurrent falls 572833769 Active 2023 Dori Pena NP [address], [place], [address], [facility] 4 16:38:03 Problem Notes None recorded. Procedures Surgical History Date Name Laterality Status Provider Name and Address Organization Details Recorded Time bypass gastroenterostomy completed Dori Pena NP [address] [facility], [address], [place], [address], [facility] 09/17/2023 15:40:41 Laparoscopic cholecystectomy completed Dori Pena NP [address] [facility], [address], [place], [address], [facility] 09/17/2023 15:41:25 fixed suspension procedure of urinary bladder neck completed Dori Pena NP [address] [facility], [address], [place], [address], [facility] 09/17/2023 15:42:01 Appendectomy completed Dori Pena NP [address] [facility], [address], [place], [address], [facility] 09/17/2023 15:42:11 bilateral cataract surgery completed Dori Pena NP [address] [facility], [address], [place], [address], [facility] 09/17/2023 15:42:26 Imaging Results None recorded. Procedure Notes None recorded. Medical Equipment None Reported. Allergies Allergen ID Allergen Name Allergen Category Reaction Reaction Severity Criticality Documentation Date Start Date Code Code System Note Provider Name and Address Organization Details Recorded Time 80208 celecoxib medicatio n other Not available unabletoasse 09/17/2023 44527 7 RxNorm unkno wn Dori Pena NP [address] [facility], [address], [place], [address], [facility] 4 15:37:14 06389 lorazepam medicatio n other Not available unabletoasse 09/17/2023 6470 RxNorm unkno wn Dori Pena NP [address] [facility], [address], [place], [address], [facility] 4 15:37:29 70790 tramadol medicatio n other Not available unabletoasse 09/17/2023 33096 RxNorm unkno wn Dori Pena NP [address] [facility], [address], [place], [address], [facility] 4 15:37:42 54053 zolpidem medicatio n other Not available unabletoasse 09/17/2023 31245 RxNorm unkno wn Dori Pena NP [address] [facility], [address], [place], [address], [facility] 4 15:37:56 Medications Name Sig Start Date [...] in Arterial blood by Pulse oximetry Systolic And Diastolic Provider Name and Address Organization Details Last Updated DateTime 4 99819.7 8 g 98 /min 18 /min 97.8 [degF] 94 % 94 % 150/77 mm[Hg] Dori Pena NP [address] [facility], [address], [place], [address], [facility] 4 10:49:41 Date Recorded Body weight Heart rate Respiratory rate Body temperature Oxygen saturation Oxygen saturation in Arterial blood by Pulse oximetry Systolic And Diastolic Provider Name and Address Organization Details Last Updated DateTime 4 40049.7 8 g 83 /min 18 /min 97 [degF] 98 % 98 % 148/74 mm[Hg] Dori Pena NP [address] [facility], [address], [place], [address], [facility] 4 13:29:12 Date Recorded Body weight Heart rate Respiratory rate Body temperature Oxygen saturation Oxygen saturation in Arterial blood by Pulse oximetry Systolic And Diastolic Provider Name and Address Organization Details Last Updated DateTime 4 23172.7 8 g 76 /min 18 /min 97.8 [degF] 97 % 97 % 128/78 mm[Hg] Dori Pena NP [address] [facility], [address], [place], [address], [facility] 4 12:05:35 Date Recorded Body weight Heart rate Respiratory rate Body temperature Oxygen saturation Oxygen saturation in Arterial blood by Pulse oximetry Systolic And Diastolic Provider Name and Address Organization Details Last Updated DateTime 4 25998 g 80 /min 18 /min 98 [degF] 95 % 95 % 111/60 mm[Hg] Dori Pena NP [address] [facility], [address], [place], [address], [facility] 4 11:40:36 Date Recorded Body weight Heart rate Respiratory rate Body temperature Oxygen saturation Oxygen saturation in Arterial blood by Pulse oximetry Systolic And Diastolic Provider Name and Address Organization Details Last Updated DateTime 4 19406 g 74 /min 18 /min 98.4 [degF] 95 % 95 % 124/68 mm[Hg] Dori Pena NP [address] [facility], [facility] [address], [place], [address], [facility] 4 13:12:09 Social History Question Answer Notes LastModified by [employer] Details LastModified Time Tobacco Smoking Status Never Smoker Dori Pean NP [address] [facility], [facility] [address], [place], [address], [facility] 09/17/2023 15:39:38 Do You Have An [...] Functional Status Question Answer Note LastModified by [employer] Details LastModified Time Do you use any [...] (RSV) vaccine, unspecified 4 completed Radha Jerman [facility] 09/19/2023 16:11:12 Tdap 4 completed [facility] 09/19/2023 16:11:26 Td(adult) unspecified formulation 3 completed [facility] 09/19/2023 16:11:43 Td(adult) unspecified formulation 3 completed [facility] 09/19/2023 16:11:51 Pneumococcal conjugate PCV 13 6 completed [facility] 09/19/2023 16:12:53 Pneumococcal conjugate PCV20, polysaccharide QCO391 conjugate, adjuvant, PF 4 completed [facility] 09/19/2023 16:13:07 pneumococcal polysaccharide PPV23 1 completed [facility] 09/19/2023 16:13:22 pneumococcal polysaccharide PPV23 4 completed [facility] 09/19/2023 16:13:31 influenza, unspecified formulation 2 completed [facility] 09/19/2023 16:13:47 influenza, unspecified formulation 3 completed [facility] 09/19/2023 16:13:55 MMR 8 completed [facility] 09/19/2023 16:14:21 SARS-COV-2 (COVID-19) vaccine, UNSPECIFIED 1 completed Radha Stoll [facility] 09/19/2023 16:15:58 SARS-COV-2 (COVID-19) vaccine, UNSPECIFIED 1 completed Radha Stoll [facility] 09/19/2023 16:16:13 SARS-COV-2 (COVID-19) vaccine, UNSPECIFIED 1 completed Radha Stoll [facility] 09/19/2023 16:16:27 SARS-COV-2 (COVID-19) vaccine, UNSPECIFIED 2 completed Radha Stoll [facility] 09/19/2023 16:17:15 SARS-COV-2 (COVID-19) vaccine, UNSPECIFIED 2 completed Radha [facility] 09/19/2023 16:21:38 zoster, unspecified formulation 5 completed Radha [facility] 09/19/2023 16:23:04 zoster, unspecified formulation 9 completed Radha [facility] 09/19/2023 16:23:18 zoster, unspecified formulation 9 completed [facility] 09/19/2023 16:25:18 Past Encounters Encounter ID Performer Location Encounter Start Date Encounter Closed Date Diagnosis/Indication Diagnosis SNOMED-CT Code Diagnosis ICD10 Code Diagnosis Note [id number] Dori Pena NP [address] [address] 09/17/2023 15:22:09 09/23/2023 14:50:24 Closed flail chest 930049916 S22.5XXD with multiple rib fractures and clavicular fracturewa s evaluated by thoracic surgery and felt non operatable pain management oxycodone 5 mg po q 4hours prnoxycont in 10 mg po ER bidgabapen tin 100 mg po bidwean over next few weeksalbut edward 2 puff q 4-6 hours5/29s ched duoneb qidrobitus sin 10 ml po [...] If stable no further workup needed. Asthenia 31696759 R53.1 with notable weakness due to injuryPT OT eval and treatsuppo rtive caremonito r Type 1 frank betes mellitus 32244362 E10.9 tresiba 30 unit sc qhsinsulin 2-14 SSI sc qidhsmonit or BS and adjust as needed Hypertensive disorder 38 734012 I10 not on meds for thisamlodi pine 10 mg po dailylosar zaragoza 100 mg po dailymonit or bp/vitals 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 346110 E06.3 levothyrox ine 112 mcg dailymonit or tsh as needed Gastroesop hageal reflux disease 548389294 K21.9 esomeprazo le 40 mg o daily Obesity 110307052 E66.9 plow holder to consultsup portive careportio n controlmon itor weight Mixed anxi ety and depressive disorder 263426343 F41.8 aripiprazo le 20 mg dailyvenla faxine 150 mg po dailyprazo sin 6 mg po qhsmelaton in 3 mg po qhshydroxy zine 10 mg po q 8 hours prn anxietyclo nazepam 0.5 mg po q 8 hours prn anxietycar vedilol 6.25 mg po bidmonitor Rheumatoid arthritis 698 87588 M06.9 enbrel 50 mg sc q 7dayscalci um citrate 400 mg po bidmonitor for reliefsee pain management above with flail chest Irritable bowel syndrome 40142808 K58.9 ? IBSlinzess 290 mcg q ammonitor Deficiency anemias 31473 3007 D53.9 folic acidvit [id number] Coronary arteriosclerosis 84525975 I25.10 hx of MIatorvast atin 20 mg po dailyclopi dogrel 75 mg po q amsee above htn medsmonito r Recurrent falls 28863261 2 R29.6 reports history of falls with furnace liner at home to help her and balance issuesrepo rts more than 5 falls/year supportive caremonito r [id number] JESSICA HINDS, AAKASH [place] [address] [place] [address] 09/18/2023 13:29:08 09/23/2023 15:13:15 Closed flail chest 033285813 S22.5XXD with multiple rib fractures and clavicular [...] If stable no further workup needed. Asthenia 52738866 R53.1 with notable weakness due to injuryPT OT eval and treatsuppo rtive caremonito r Type 1 frank betes mellitus 87614957 E10.9 A1C 8.8%Contin eu:tresiba 30 unit sc qhsinsulin 2-14 SSI sc qidmonitor BS and adjust as needed Hypertensive disorder 38 411806 I10 amlodipine 10 mg po dailylosar zaragoza 100 mg po dailycoreg 6.25 mg bidmonitor bp/vitals 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 049602 E06.3 levothyrox ine 112 mcg dailymonit or tsh as needed Gastroesop hageal reflux disease 285138249 K21.9 esomeprazo le 40 mg o daily Deficiency anemias 63913 3007 D53.9 folic acidvit o93yrnofvx Obesity 549011343 E66.9 plow holder to consultsup portive careportio n controlmon itor weight Mixed anxi ety and depressive disorder 125191211 F41.8 aripiprazo le 20 mg dailyvenla faxine 150 mg po dailyprazo sin 6 mg po qhsmelaton in 3 mg po qhshydroxy zine 10 mg po q 8 hours prn anxietyclo nazepam 0.5 mg po q 8 hours prn anxietymon itor Rheumatoid arthritis 698 23848 M06.9 enbrel 50 mg sc q 7dayscalci um citrate 400 mg po bidmonitor for reliefsee pain management above with flail chest Irritable bowel syndrome 88982548 K58.9 ? IBSlinzess 290 mcg q ammonitor Coronary arteriosclerosis 35407337 I25.10 hx of MIatorvast atin 20 mg po dailyclopi dogrel 75 mg po q amsee above htn medsmonito r Recurrent falls 05232121 2 R29.6 reports history of falls with furnace liner at home to help her and balance issuesrepo rts more than 5 falls/year supportive caremonito r [id number] Dori Pena NP [address] [address] 09/22/2023 14:27:57 09/29/2023 19:16:34 Closed flail chest 911441469 S22.5XXD with multiple rib fractures and clavicular [...] If stable no further workup needed. Asthenia 92432068 R53.1 with notable weakness due to injuryPT OT eval and treatsuppo rtive caremonito r Type 1 frank betes mellitus 64131565 E10.9 BS 81-252 [id number] 8.8%contin ue:tresiba 30 unit sc qhsinsulin 2-14 SSI sc qidmonitor BS and adjust as needed Hypertensive disorder 38 408893 I10 improving lately, boderline highcontam lodipine 10 mg po dailylosar zaragoza 100 mg po dailycoreg 6.25 mg bidmonitor bp/vitals 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 207428 E06.3 contlevoth yroxine 112 mcg dailymonit or tsh as needed Gastroesop hageal reflux disease 897876942 K21.9 esomeprazo le 40 mg o daily Deficiency anemias 12499 3007 D53.9 folic acidvit i45wagpiaa Obesity 369339110 E66.9 plow holder to consultsup portive careportio n controlmon itor weight Mixed anxi ety and depressive disorder 780344766 F41.8 contaripip razole 20 mg dailyvenla faxine 150 mg po dailyprazo sin 6 mg po qhsmelaton in 3 mg po qhshydroxy zine 10 mg po q 8 hours prn anxietyclo nazepam 0.5 mg po q 8 hours prn anxietymon itor Rheumatoid arthritis 698 39417 M06.9 enbrel 50 mg sc q 7dayscalci um citrate 400 mg po bidmonitor for reliefsee pain management above with flail chest Irritable bowel syndrome 73737340 K58.9 ? IBSlinzess 290 mcg q ammonitor Coronary arteriosclerosis 97133241 I25.10 hx of MIatorvast atin 20 mg po dailyclopi dogrel 75 mg po q amsee above htn medsmonito r Recurrent falls 77997746 2 R29.6 reports history of falls with furnace liner at home to help her and balance issuesrepo rts more than 5 falls/year supportive caremonito r Acute cystitis 00352792 N30.00 reports dysuria and occassiona l incontinen ce latelyurin e culture returned showing > 100,000 klebsiella pneumo ssp and started on ceftriaxon e 1gram IM and cefpodoxim e 200 mg po bid x 7 days with probiotic by on provider over the weekend.mo nitor [id number] Jnoel Alamo MD [address] [address] 09/23/2023 11:01:43 09/29/2023 19:25:59 Closed fracture of multiple left ribs 5194972686 9850894 S22.42XG see HPIleft rib fxs 2-6 with concern for flail chest , with clavicular fxeval by surgery with no interventi on indicatedm onitor respirator y statusutil ize incentive spirometer monitor for pain controlupd ate surgery with concerns Asthenia 44214266 R53.1 PT OT eval and treatmonit or need for increased support in community Type 1 frank betes mellitus 03360663 E10.9 tresiba 30 units qdSS insulinmon itor glucose and need to titrate Hypertensive disorder 38 222211 I10 norvasc 10 mg qdcoreg 6.25 mg bidlosarta n 100 mg qdcurrentl y elevatedmo nitor need for increased control 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 216496 E06.3 hx of added to PMHmaintai priscilla onsynthroi d 112 mcg qdmonitor tsh prn Gastroesop hageal reflux disease 467626014 K21.9 nexium 40 mg qd continuedm onitor for effect Obesity 155630696 E66.09 dietary eval in patient with baseline DM Mixed anxi ety and depressive disorder 354460523 F41.8 carrying dx requiring multiple medication swill continue out patient medication s includinga bility and ativanmoni tor moodpsych eval prn Rheumatoid arthritis 698 02418 M06.9 remains onenbrel 50 mg q friday Irritable bowel syndrome 89832663 K58.9 ? IBSlinzess 290 mcg q ammonitor Coronary arteriosclerosis 76267246 I25.10 hx of MIatorvast atin 20 mg po dailyclopi dogrel 75 mg po q amsee above htn medsmonito r Recurrent falls 10131154 2 R29.6 reports history of falls with furnace liner at home to help her and balance issuesrepo rts more than 5 falls/year supportive caremonito r Solitary n odule of lung 654364657 R91.1 question right 4 mm upper lobe nodulecons ider repeat scan in 6-12 months Primary insomnia 4948772 F51.01 continue melatoninm onitor need to titrate Abnormal weight loss 267 951839 R63.4 weight dropped > 12 lbs in a few days from admitappea rs to be error in initial intake weightwill monitor Acute cystitis 22830199 N30.00 now on cefpodoxim e to complete coursemoni tor for recurrent disease [id number] Dori Pena NP [address] [address] 09/24/2023 09:21:20 09/29/2023 19:39:42 Closed fracture of multiple left ribs 6825429827 0839002 S22.42XG with multiple rib fractures and clavicular [...] in am off pmadjust as needed. Asthenia 59869861 R53.1 PT OT eval and treatmonit or need for increased support in community Type 1 frank betes mellitus 42715325 E10.9 BS controlled conttresib a 30 units qdSS insulinmon itor glucose and need to titrate Hypertensive disorder 38 444903 I10 stable on below regimennor vasc 10 mg qdcoreg 6.25 mg bidlosarta n 100 mg qdcurrentl y elevatedmo nitor need for increased control 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 539322 E06.3 hx of added to PMHmaintai priscilla onsynthroi d 112 mcg qdmonitor tsh prn Gastroesop hageal reflux disease 664883101 K21.9 nexium 40 mg qd continuedm onitor for effect Obesity 771385924 E66.09 dietary eval in patient with baseline DM Rheumatoid arthritis 698 27292 M06.9 remains onenbrel 50 mg q friday Irritable bowel syndrome 14741636 K58.9 ? IBSlinzess 290 mcg q ammonitor Coronary arteriosclerosis 68900754 I25.10 hx of MIatorvast atin 20 mg po dailyclopi dogrel 75 mg po q amsee above htn medsmonito r Recurrent falls 53521515 2 R29.6 reports history of falls with furnace liner at home to help her and balance issuesrepo rts more than 5 falls/year supportive caremonito r Primary insomnia 2854168 F51.01 continueme latoninmon itor need to titrate Abnormal weight loss 267 012251 R63.4 weight dropped > 12 lbs in a few days from admitappea rs to be error in initial intake weight6/5 reweigh pt todaywill monitor Acute cystitis 61878376 N30.00 now on cefpodoxim e to complete courseaysm ptomaticmo nitor for recurrent disease [id number] Dori Pena NP [facility] [address] [address] 09/29/2023 10:39:23 10/03/2023 11:24:38 Closed fracture of multiple left ribs 2345631058 7781306 S22.42XG with multiple rib fractures and clavicular [...] to left shoulderad just as needed. Asthenia 67395417 R53.1 PT OT eval and treatmonit or need for increased support in community Type 1 frank betes mellitus 84402907 E10.9 BS controlled conttresib a 30 units qdSS insulinmon itor glucose and need to titrate Hypertensive disorder 38 005910 I10 stable on below regimen with slightly high bp likley related to pain, monitorcon tnorvasc 10 mg qdcoreg 6.25 mg bidlosarta n 100 mg qdcurrentl y elevatedmo nitor need for increased control 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 023563 E06.3 hx of added to PMHmaintai priscilla onsynthroi d 112 mcg qdmonitor tsh prn Gastroesop hageal reflux disease 505141319 K21.9 contnexium 40 mg qdmonitor for effect Obesity 737975014 E66.09 dietary evalbaseli ne DMweight today please Rheumatoid arthritis 698 05441 M06.9 remains onenbrel 50 mg q friday Irritable bowel syndrome 62024475 K58.9 ? IBSlinzess 290 mcg q ammonitor Coronary arteriosclerosis 58562100 I25.10 hx of MIatorvast atin 20 mg po dailyclopi dogrel 75 mg po q amsee above htn medsmonito r Recurrent falls 83775827 2 R29.6 reports history of falls with furnace liner at home to help her and balance issuesrepo rts more than 5 falls/year supportive caremonito r Primary insomnia 8317030 F51.01 continueme latoninmon itor need to titrate Abnormal weight loss 267 568600 R63.4 weight dropped > 12 lbs in a few days from admitappea rs to be error in initial intake weight6/10 reweigh pt todaywill monitor Acute cystitis 93121573 N30.00 resolved cefpodoxim e to complete courseaysm ptomaticmo nitor for recurrent disease Mixed anxi ety and depressive disorder 838756409 F41.8 contaripip razole 20 mg dailyvenla faxine 150 mg po dailyprazo sin 6 mg po qhsmelaton in 3 mg po qhshydroxy zine 10 mg po q 8 hours prn anxiety6/1 0 renew clonazepam 0.5 mg po q 8 hours prn anxietymon itor [id number] [facility] [address] [place] [address] 10/02/2023 13:28:32 10/07/2023 10:08:18 Hypertensive disorder 82541121 I10 stable on below regimen as it comes down to 120s systolic post medication contnorvas c 10 mg qdcoreg 6.25 mg bidlosarta n 100 mg qdmonitor need for increased control Closed fra cture of multiple left ribs 5330963921 2104764 S22.42XG with left rib fxs 2-6 with [...] OT eval and txadjust as needed. Asthenia 73679089 R53.1 PT OT eval and treatmonit or need for increased support in community Type 1 frank betes mellitus 36908529 E10.9 BS controlled glucernaco nttresiba 30 units qdSS insulinmon itor glucose and need to titrate Gastroesop hageal reflux disease 981494333 K21.9 contnexium 40 mg qdmonitor for effect Rheumatoid arthritis 698 85827 M06.9 remains onenbrel 50 mg q friday Irritable bowel syndrome 06611291 K58.9 ? IBSlinzess 290 mcg q ammonitor Coronary arteriosclerosis 67022034 I25.10 hx of MIcoreg 6.25 mg po bidatorvas tatin 20 mg po dailyclopi dogrel 75 mg po q amsee above htn medsmonito r Recurrent falls 09126895 2 R29.6 reports history of falls with furnace liner at home to help her and balance issuesrepo rts more than 5 falls/year supportive care and therapy here for balance, strengthen ing, gait, mobility, endurancem onitor Abnormal weight loss 267 681859 R63.4 weight dropped > 12 lbs in a few days from admitappea rs to be error in initial intake weight09/28 reweigh pt today10/01 reweight pt today, no weight since 09/21will monitor Mixed anxi ety and depressive disorder 409188201 F41.8 contaripip razole 20 mg dailyvenla faxine 150 mg po dailyprazo sin 6 mg po qhsmelaton in 3 mg po qhshydroxy zine 10 mg po q 8 hours prn anxiety09/19 0 renew clonazepam 0.5 mg po q 8 hours prn anxiety x 14 days10/01 cont as abovemonit or [id number] Dori Pena NP [address] [address] 10/06/2023 12:02:36 10/09/2023 09:34:42 Closed fracture of multiple left ribs 1592390883 9021304 S22.42XG with left rib fxs 2-6 with [...] txadjust as needed. Abnormal weight loss 267 812324 R63.4 weight dropped > 12 lbs in a few days from admitappea rs to be error in initial intake weight10/04 160 lbs which is same as 09/22/23will monitor Hypertensive disorder 38 307631 I10 stable on below regimen as it comes down to 120s systolic post medication contnorvas c 10 mg qdcoreg 6.25 mg bidlosarta n 100 mg qdmonitor need for increased control Asthenia 75337882 R53.1 PT OT eval and treatmonit or need for increased support in community Type 1 frank betes mellitus 48709290 E10.9 pt having syrup and gingerale at [...] and need to titrate Rheumatoid arthritis 698 87291 M06.9 remains onenbrel 50 mg q friday Irritable bowel syndrome 07195093 K58.9 with constipati on today, states many days10/05 mon given today, will do supp if no bm by 4 pm10/05 start senna 8.6 mg po daily? IBSlinzess 290 mcg q ammonitor Coronary arteriosclerosis 58338525 I25.10 hx of MIcoreg 6.25 mg po bidatorvas tatin 20 mg po dailyclopi dogrel 75 mg po q amsee above htn medsmonito r Mixed anxi ety and depressive disorder 189711034 F41.8 contaripip razole 20 mg dailyvenla faxine 150 mg po dailyprazo sin 6 mg po qhsmelaton in 3 mg po qhshydroxy zine 10 mg po q 8 hours prn anxiety6/1 0 renew clonazepam 0.5 mg po q 8 hours prn anxiety x 14 days10/01 cont as above10/05 stable today with above planmonito r [id number] Dori Pena, [facility] [address] 10/08/2023 11:40:06 10/15/2023 15:50:32 Type 1 diabetes mellitus [id number] E10.9 pt having syrup and gingerale at [...] and need to titrate Irritable bowel syndrome [id number] K58.9 with constipati on resolved with mom on 7 fri given today10/05 start senna 8.6 mg po daily? IBSlinzess 290 mcg q am10/07 having bm regularly nowmonitor Closed fra cture of multiple left ribs [id number] S22.42XG with left rib fxs 2-6 with [...] txadjust as needed. Abnormal weight loss 267 403520 R63.4 weight dropped > 12 lbs in a few days from admitappea rs to be error in initial intake weight10/04 160 lbs which is same as 09/22/23, ? incorrect admit weight but seems stable nowncll monitor Hypertensive disorder 38 541154 I10 stable on below regimen as it comes down to 120s systolic post medication contnorvas c 10 mg qdcoreg 6.25 mg bidlosarta n 100 mg qdmonitor need for increased control Asthenia 86828131 R53.1 PT OT eval and treatmonit or need for increased support in community Rheumatoid arthritis 698 34893 M06.9 remains onenbrel 50 mg q friday Coronary arteriosclerosis 14455133 I25.10 hx of MIcoreg 6.25 mg po bidatorvas tatin 20 mg po dailyclopi dogrel 75 mg po q amsee above htn medsmonito r Mixed anxi ety and depressive disorder [id number] F41.8 contaripip razole 20 mg dailyvenla faxine 150 mg po dailyprazo sin 6 mg po qhsmelaton in 3 mg po qhshydroxy zine 10 mg po q 8 hours prn anxiety09/19 0 renew clonazepam 0.5 mg po q 8 hours prn anxiety x 14 days10/01 cont as above10/05 stable today with above plan10/07 stable today with above planmonito r Hyperkalemia 34331646 E8 7.5 k of 5.7 on give kayexalate 15 gm today10/08 bmp in ammonitor for additional e lyte abbormalit ies [id number] Dori Pena NP [facility] [place] [address] 10/09/2023 13:08:06 10/15/2023 16:27:22 Closed fracture of multiple left ribs [id number] S22.42XG resolving with left rib fxs 2-6 [...] prnadjust as needed outpt with pcp Hyperkalemia 06007385 E8 7.5 k of 5.7 on give kayexalate 15 gm on 10/07monito r for additional e lyte abnormalit ies outpt with pcp Type 1 frank betes mellitus 83843249 E10.9 BS slightly high while at rehab with eating sugary foods/drin ksPlan: diet sodas and diet syrup and less sugary choicescon tglucernat resiba 30 units qdSS insulin with meals as per home schedmonit or glucose and need to titrate outpt with pcp outpt Irritable bowel syndrome 39005716 K58.9 with constipati on resolvedse nna 8.6 mg po daily (started at rehab)? IBSlinzess 290 mcg q ammonitor with pcp outpt Abnormal weight loss 267 444064 R63.4 weight dropped > 12 lbs in a few days from admitappea rs to be error in initial intake weight10/04 160 lbs which is same as 09/22/23, ? incorrect admit weight but seems stable nowmonitor oupt with pcp Hypertensive disorder 38 843603 I10 stable on below regimen as it comes down to 120s systolic post medication contnorvas c 10 mg qdcoreg 6.25 mg bidlosarta n 100 mg qdmonitor need for increased control outpt with pcp Asthenia 01185981 R53.1 PT OT eval and treat outpt prnmonitor need for increased support in community with pcp Rheumatoid arthritis 698 47603 M06.9 remains onenbrel 50 mg q fridaymoni tor outpt with pcp Coronary arteriosclerosis 81633825 I25.10 hx of MIcoreg 6.25 mg po bidatorvas tatin 20 mg po dailyclopi dogrel 75 mg po q amsee above htn medsmonito r outpt wtih pcp Mixed anxi ety and depressive disorder 146063897 F41.8 contaripip razole 20 mg dailyvenla faxine 150 mg po dailyprazo sin 6 mg po qhsmelaton in 3 mg po qhshydroxy zine 10 mg po q 8 hours prn anxietyclo nazepam 0.5 mg po q 8 hours prn anxietymon itor outpt with pcp Gastroesop hageal reflux disease 990684510 K21.9 contnexium 40 mg qdmonitor for effect outpt with pcp Recurrent falls 57666269 2 R29.6 reports history of falls with furnace liner at home to help her and balance issuesrepo rts more than 5 falls/year supportive care and therapy here for balance, strengthen ing, gait, mobility, endurance outpt rpnmonitor outpt with pcp 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 850708 E06.3 hx of added to PMHmaintai priscilla onsynthroi d 112 mcg qdmonitor tsh prn with pcp Obesity 746128947 E66.09 dietary evalbaseli ne DMweight to be monitored with pcp outpt Primary insomnia 3695870 F51.01 continueme latoninmon itor need to titrate outpt Acute cystitis 98707530 N30.00 resolved cefpodoxim e to complete courseaysm ptomaticmo nitor for recurrent disease outpt with pcp Health Concerns Section Related Observation LastModified by Organization Detai ls LastModified Time None Recorded Concern Status LastModified by Organization Details LastModified Time None Recorded Advance Directives Directive N: Payers Insurance Date Sequence Insurance Name Policy Number Policy Patten Covered Member ID Patten Member ID Guarantor Name 10/15/[address] [facility] - DOS ON OR AFTER 2022 - MEDICARE ADVANTAGE [place] (MEDICARE REPLACEMENT/ADV ANTAGE - PPO) Brandie Luevano [id number] Brandie Luevano Notes Date Note Type Note [...] oxycodone script today. 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 She has her sling in place [...] a cane usually Dori Pena NP [address], [address], [place], [address], [facility] - [employer] 10/02/2023 13:48:50 10/06/2023 text/html Pt is seen for a n acute rounding visit. Brandie is working here at [facility] and is feeling good and more mobile lately with left sling in place. She continues with therapy and making gains. She was treated for a UTI when she first came to [facility] and denies any urinary symptoms. Nursing noted [...] a cane usually Dori Pena NP [address], [address], [place], [address], [facility] [employer] [facility] 10/06/2023 12:26:22 10/08/2023 text/html Pt is seen [...] in a sling for comfort. While at [facility]:She was treated for a UTI when she first came to [facility] and denies any urinary symptoms. Nursing noted [...] a cane usually Dori Pena, AAKASH [address], [address], [place], [place], [address], [facility] [employer] 10/08/2023 12:05:52 10/09/2023 text/html Pt is seen [...] in a sling for comfort. While at [facility]:She was treated for a UTI when she first came to [facility] and denies any urinary symptoms. Nursing noted [...] fall risk, uses a cane usually Dori ePna NP [address] [facility], [address], [place], [address], [facility] - [employer] [facility] 10/09/2023 16:50:56 OBGyn Episode No OBEpisode recorded.
--- NOTE | 2024-10-26 08:47 | A.OFFVIS_ITS ---
Intake Intake Visit Reasons: Diabetes type 1, uncontrolled Rf Manager Required: Yes Rf Manager Language: [employer] Name: Astrid [id number] Accompanied by: Other Relationship Allergies lorazepam (LORAZEPAM) Allergy (Severe, Verified 10/12/24 09:31) DELIRIUM celecoxib (From Celebrex) Allergy (Intermediate, Verified 10/12/24 09:31) ITCHING tramadol (TRAMADOL) Allergy (Intermediate, Verified 10/12/24 09:31) ITCHING zolpidem (Ambien) Allergy (Unknown, Verified 10/12/24 09:31) unknown HPI Comprehensive Diabetes Asmnt Most Recent Diabetes Results: Cholesterol, (<200) 145 mg/dL 08/16/24 HDL Cholesterol, (>40) 65 mg/dL 08/16/24 Triglycerides, (<150) 100 mg/dL 08/16/24 Creatinine, (0.5-1.4) 1.09 mg/dL 08/16/24 BUN, (9-16) 17 mg/dL H 08/16/24 Sodium, (135-145) 140 mmol/L 08/16/24 Potassium, (3.3-5.1) 5.0 mmol/L 08/16/24 Chloride, (96-108) 104 mmol/L 08/16/24 Carbon Dioxide, (22-29) 30 mmol/L H 08/16/24 Calcium, (8.4-10.2) 8.7 mg/dL Δ 08/16/24 AST, (5-31) 39 U/L H 08/16/24 ALT, (0-31) 49 U/L H 08/16/24 Total Protein, (6.5-8.0) 6.3 g/dL L 08/16/24 Albumin, (3.5-5.0) 4.0 g/dL 08/16/24 [facility] Medical History Heart palpitations Hypoglycemia due to insulin Elevated parathyroid hormone Osteoporosis Hyperlipidemia (04/21/1959) Depressive disorder (04/21/1959) Nutritional anemia (04/21/1959) Shortness of breath Hypothyroidism (04/21/1959) Anemia Chronic gastritis NSTEMI (non-ST elevated myocardial infarction) Recurrent falls (12/04/11) Iron deficiency anemia (04/21/1959) Fibromyositis (04/21/1959) Eczema (04/21/1959) High risk medication use Hepatitis C antibody positive in blood Screening for osteoporosis Screening for viral disease Joint swelling Overweight (BMI 25.0-29.9) Neck pain Swelling of knee joint, right Intra-abdominal abscess Diabetes Elevated liver function tests Intestinal malabsorption following gastrectomy Obesity (BMI 30-39.9) 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 Hypertension Cholecystitis Hyperlipidemia, unspecified Essential hypertension Atherosclerotic cardiovascular disease Fibromyalgia Folliculitis Anxiety Depression History of myocardial infarction Diabetes type 1, uncontrolled 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 Mother CVA (cerebral vascular accident) Sister Hypertension Brother Hypertension Liver cancer Social History Household Members: None Housing: Apartment Are you a primary plant health care technician to a significant other at home: No Do you presently have visiting nurse or other home services: Yes Unable to assess alcohol history related to: Unable to respond Alcohol intake: never Patient Tobacco Use Status: Never used Tobacco Advance Directives Date on File: 09/17/23 service: No Current occupational status: disabled Current occupation: right hand dominant Assessment & Plan Assessment & Plan (1) Diabetes type 1, uncontrolled: Comment: Doses of Tresiba over 19 units cause am lows! Code(s): E10.65 - Type 1 diabetes mellitus with hyperglycemia Qualifiers: Glycemic state: with hypoglycemia Coma presence: without coma Qualified Code(s): E10.649 - Type 1 diabetes mellitus with hypoglycemia without coma Plan: Patient at visit to set up an insert Dexcom G7 with customer operations intern Patient reports her long time REGISTRATION REPRESENTATIVE was in an accident in [place] Patient at visit today so new REGISTRATION REPRESENTATIVE could learn how to insert and set up Dexcom G7 sensor Instructed patient sensors water proof you can shower, or swim do not submerge sensor in water for over 30 minutes Is sensor falls off cannot put back in you need to replace sensor, customer service number given to patient for sensor replacement Sensor placed on the back of right arm Patient left visit with sensor in warmup Reviewed how to interpret trend arrows Discussed lag time between finger stick and sensor data.? Instructed patient the importance of having blood glucometer for backup testing if needed Reviewed delay of CGM from fingersticks Reminded Pt that if symptoms do not match sensor still needs to check fingersticks. Portions of this note were created using voice recognition software, please excuse any words or phrases that may have been misinterpreted. Patient Instructions: Instrucciones para el paciente: CGM proporciona informaci?n sobre el control de la glucosa en ivy a lo keerthi del d?a, incluidas la hiperglucemia y la hipoglucemia. Contin?e controlando la glucosa en ivy seg?n las instrucciones. Siga las pautas de nutrici?n proporcionadas. Informe cualquier molestia de inmediato al proveedor de atenci?n m?dica. Mantente rhea hidratado. Puede ba?arse, ducharse, nadar y hacer ejercicio mientras usa el sensor de glucosa. No sumerja el sensor de glucosa en agua leno m?s de 30 minutos. Retire el sensor para skinny resonancia magn?saira o skinny tomograf?a computarizada. Evite la m?quina de anil X en los aeropuertos: retire el sensor o solicite la varita Coding Level of Care Code Est Pt Level 1 (81663) Diagnoses Uncontrolled type 1 diabetes mellitus with hypoglycemia without coma E10.649 Glycemic state: with hypoglycemia Coma presence: without coma
== END 2024-10-26 08:51 | disposition home or self-care (01) ==
LOC: HO.ENCR 08:33
PROVIDERS: PCP Internal Medicine; Visit Provider Registered Nurse Diabetes Educator
DX: E10.649 Type 1 diabetes mellitus with hypoglycemia without coma (principal)

== ENCOUNTER → 2024-10-26 08:32 | Outpatient (BNVA) | payer OTHER, SELFPAY | PROVIDERS: PCP Internal Medicine; Visit Provider Registered Nurse Diabetes Educator | DX: E10.649 Type 1 diabetes mellitus with hypoglycemia without coma (principal) | CPT/HCPCS: 99211 ==

== ENCOUNTER 2024-10-28 10:01 | Outpatient (REF) | payer OTHER, SELFPAY ==
--- OUTSIDE RECORDS SUMMARY | 2024-10-28 10:30 | XMS_ITS | Encounter Summary ---
Author Organization [employer] Address [address] [facility] [address] [place] [address] Care Team Providers Care Production Line Technician Name Role Phone Pascual Daly MD Primary Care Provide r Dasia Waters PharmD Unavailable [phone] Reason for Visit * Reason Comments POLICY ISSUE CLERK Encounter Details Date Type Department Care Team ([facility] st Contact Info) Description 10/28/2024 10:30 AM EDT Clinical Support [facility] CH[facility] MED & PEDS [address] [place] [address] Amanda Fernández RN [address] [place] [address] Fibromyalgia Social History Tobacco Use Types Packs/Day [...] housing situation today? I have sarahy sing 08/12/[address] you li [...] Progress Notes * Amanda Fernández RN - 10/28/2024 10:30 AM EDT SUBJECTIVE: Brandie Santana is a 74 y.o. year old female who presents for POLICY ISSUE CLERK Preferred language for medical information: Law Office Assistant needed: No Brandie Santana does report adherence to Oxycodone 5 mg, take 1 tablet every 12 hours, last refilled 10/01/24 The patient last took Oxycodone on: 10/28/24 The patient does not overuse medication Medication is 80% effective at alleviating pain OBJECTIVE: FLIGHT SERVICE AGENT checked: 10/28/2024 Pill count completed for Oxycodone , count today is 1, anticipated count should be 1, this is as expected POLICY ISSUE CLERK Tier: 2 Additional pain site: Upper Back, pain rated: 7 BPI completed on: 04/27/24 , pain severity score: 5, activity interference score: 7 Last PCP visit: 08/12/24 Tobacco Use History[1]non smoker Lab Results Component Value Date POCTHC Negative 10/28/2024 POCCOCAINEUR Negative 10/28/2024 POCOPIATEUR Negative 10/28/2024 DOAUR Negative 10/28/2024 POCAMPHETAMI Negative 10/28/2024 POCBENZODIUR Negative 10/28/2024 POCBARBSCRN Negative 10/28/2024 POCMETHADOUR Negative 10/28/2024 POCBUPSCRN Negative 10/28/2024 POCTCAUR Negative 10/28/2024 POCMDMAUR Negative 10/28/2024 POCOXYCODONE Positive (A) 10/28/2024 POCPHENCYCUR Negative 10/28/2024 PROPOXUR Negative 10/28/2024 FENTANYLURIN Negative 10/28/2024 Marijuana use: No Current Medications[2] Patient Active Problem List Diagnosis Date Noted Aphthous ulcer 09/16/2024 Coronary artery disease involving [place] coronary artery of [place] heart without angina pectoris 08/12/2024 Dental plaque 08/05/2024 Localized gingival recession 08/05/2024 Xerostomia 08/05/2024 Long-term current use of opiate analgesic 07/22/2024 Hospital discharge follow-up 10/21/2023 Age-related osteoporosis without current pathological fracture 10/21/2023 Acute pain of left shoulder 10/21/2023 Closed fracture of multiple ribs of left side with routine healing 10/21/2023 Acute bronchitis due to respiratory syncytial virus (RSV) 04/30/2023 Mild intermittent asthma with acute exacerbation 04/16/2023 Preventative health care 08/27/2022 S/P gastric bypass 08/27/2022 Hair loss 08/27/2022 Rheumatoid arthritis involving multiple sites with positive rheumatoid factor ([facility]) 08/27/2022 Gastroesophageal reflux disease without esophagitis 05/13/2022 Major depressive disorder with psychotic features ([facility]) 03/26/2022 Neuropathy, cervical 02/13/2018 Hypertension 09/02/2012 Recurrent falls 12/04/2011 Type 2 diabetes mellitus with right eye affected by mild nonproliferative retinopathy without macular edema, with long-term current use of insulin ([facility]) 04/21/1959 Eczema 04/21/1959 Fibromyalgia 04/21/1959 Hyperlipidemia 04/21/1959 Hypothyroidism 04/21/1959 Iron deficiency anemia 04/21/1959 ASSESSMENT: Encounter Diagnosis Name Primary? Fibromyalgia PLAN: Information on pain group given: Previously discussed Information on acupuncture given: Previously discussed Narcan education provided: Previously discussed Brandie Santana will continue taking medication as prescribed and follow up at the next POLICY ISSUE CLERK visit or sooner if needed. Brandie Santana has verbalized understanding of care plan. Future Appointments Date Time Provider Department Center 10/28/2024 10:30 AM Amanda Fernández RN [facility] 11/05/2024 9:00 AM Christian Winchester DDS ADLT DENT [facility] 11/16/2024 11:15 AM Pascual Terry MD MEDICINE [facility] 01/03/2025 10:00 AM Dasia Waters PharmD MEDICINE [facility] 01/20/2025 10:30 AM Amanda Fernández RN [facility] 02/17/2025 10:00 AM Gabirelatony Gaitan ADLT DENT [facility] Amanda Fernández RN [1] Social History Tobacco Use Smoking Status Never Passive exposure: Never Smokeless Tobacco Never [2] Current Outpatient Medications: acetaminophen (Tylenol) 500 MG tablet, take 1 tablet (500MG) by oral route every 6 hours as needed (Patient not taking: Reported on 09/16/2024), Disp: , Rfl: Actemra ACTPen 162 MG/0.9ML solution auto-injector, Inject as directed (likely every other week; verify dose with patient or pharmacy), Disp: , Rfl: albuterol (2.5 MG/3ML) 0.083% nebulizer solution, INHALE 1 AMPULE USING A NEBULIZER EVERY THREE HOURS NEEDED FOR SHORTNESS OF BREATH, Disp: , Rfl: albuterol (Ventolin HFA) 108 (90 Base) MCG/ACT inhaler, INHALE 2 PUFFS BY MOUTH EVERY 4 TO 6 HOURS NEEDED, Disp: 18 g, Rfl: 1 Alcohol Swabs (Alcohol Pads) 70 % pads, Use up to 4 times a day for insulin injections, Disp: 100 each, Rfl: 11 amLODIPine (Norvasc) 10 MG tablet, TAKE 1 TABLET BY MOUTH EVERY EVENING, Disp: 90 tablet, Rfl: 1 ARIPiprazole (Abilify) 20 MG tablet, Take 1 tablet (20 mg) by mouth in the morning., Disp: 90 tablet, Rfl: 1 atorvastatin (Lipitor) 20 MG tablet, TAKE 1 TABLET BY MOUTH EVERY MORNING, Disp: 90 tablet, Rfl: 1 Baqsimi Two Pack 3 MG/DOSE nasal powder, USE 1 SPRAY (3MG) IN ONE NOSTRIL FOR A PATIENT WITH SEVEREHYPOGLYCEMIA WHO IS NOT RESPONSIVE AND UNABLE SELF-TREAT WITH GLUCOSE. AFTERWARDS TURN ON SIDE. MAYREPEAT IN 15MINUTES IF PATIENT DOES NOT RESPOND., Disp: , Rfl: Bisacodyl EC 5 MG EC tablet, Take 10 mg by mouth at bedtime., Disp: , Rfl: Blood Pressure Monitoring (Adult Blood Pressure Cuff Lg) kit, Use daily to check blood pressure, Disp: 1 kit, Rfl: 0 calcium citrate (Calcitrate) 950 (200 Ca) MG tablet, Take 2 tablets by mouth 2 times daily., Disp: , Rfl: carvedilol (Coreg) 6.25 MG tablet, TAKE 1 TABLET BY MOUTH TWICE DAILY IN THE MORNING AND AT BEDTIME, Disp: , Rfl: chlorhexidine (Peridex) 0.12 % solution, Swish 15 mL morning and night for 1 minute. Spit, do not swallow. Do not eat or drink for 30 minutes following use., Disp: 473 mL, Rfl: 0 clonazePAM (KlonoPIN) 0.5 MG tablet, Take 1 tablet (0.5 mg) by mouth if needed in the morning, at noon, and at bedtime for anxiety., Disp: 90 tablet, Rfl: 0 clopidogrel (Plavix) 75 MG tablet, Take 75 mg by mouth in the morning., Disp: , Rfl: Continuous Glucose Sensor (Dexcom G7 Sensor) [facility], DIRECTED, Disp: , Rfl: D3 Super Strength 50 MCG (2000 UT) capsule, Take 50 mcg by mouth in the morning., Disp: , Rfl: esomeprazole (NexIUM) [address] capsule, Take 40 mg by mouth Once daily., Disp: , Rfl: fluticasone (Flonase Allergy Relief) 50 MCG/ACT nasal spray, Administer 1 spray into each nostril in the morning. Shake gently. Before first use, prime pump. After use, clean tip and replace cap., Disp: 16 g, Rfl: 12 folic acid (Folvite) 1 MG tablet, take 1 tablet by oral route every day, Disp: , Rfl: gabapentin (Neurontin) 100 MG capsule, TAKE 1 CAPSULE BY MOUTH TWICE DAILY IN THE MORNING AND AT BEDTIME, Disp: 180 capsule, Rfl: 1 glucose blood (FREESTYLE LITE) test strip, USE 1 Each by DIRECTED route 4 times every day, Disp:, Rfl: hydrOXYzine HCl (Atarax) 10 MG tablet, Take 1 tablet (10 mg) by mouth every 8 (eight) hours if needed for anxiety., Disp: 50 tablet, Rfl: 0 insulin aspart, with niacinamide, (Fiasp FlexTouch) 100 UNIT/ML injection, Inject 4-12 units beforemeals 3 times a day., Disp: , Rfl: insulin degludec (Tresiba FlexTouch) 100 UNIT/ML injection, Inject 18 Units under the skin in the morning., Disp: , Rfl: levothyroxine (Synthroid, Levoxyl) 125 MCG tablet, Take 1 tablet by mouth in the morning., Disp: , Rfl: Linzess 145 MCG capsule, Take 1 capsule by mouth before breakfast., Disp: , Rfl: losartan (Cozaar) 100 MG tablet, TAKE 1 TABLET BY MOUTH EVERY MORNING, Disp: 90 tablet, Rfl: 1 melatonin 3 MG tablet, Take 1 tablet (3 mg) by mouth if needed at bedtime for sleep., Disp: 30 tablet, Rfl: 2 naloxone (Narcan) 4 mg/0.1 mL nasal spray, 4 mg if needed for opioid reversal., Disp: , Rfl: oxyCODONE (Roxicodone) 5 MG immediate release tablet, Take 1 tablet (5 mg) by mouth every 12 (twelve) hours if needed for severe pain., Disp: 56 tablet, Rfl: 0 prazosin (Minipress) 2 MG capsule, Take 3 capsules (6 mg) by mouth at bedtime., Disp: 270 capsule, Rfl: 1 simethicone (Mylicon) 125 MG chewable tablet, Chew 1 tablet. 2 to 4 times daily as needed for gas, Disp: , Rfl: UltiGuard SafePack Pen Needle 32G X 4 MM misc, USE DIRECTED FIVE TIMES DAILY, Disp: , Rfl: venlafaxine XR (Effexor XR) 37.5 MG 24 hr capsule, Take 1 capsule by mouth in the morning., Disp: ,Rfl: venlafaxine XR (Effexor XR) 75 MG 24 hr capsule, Take 1 capsule by mouth in the morning., Disp: , Rfl: documented in this encounter Plan of Treatment Upcoming Encounters Date Type Department Care Team (Late st Contact Info) Description 11/05/2024 9:00 AM EDT Office Visit [facility] ADULT DENTAL [address] [place] [address] Christian Winchester DDS [address] [place] [address] 11/16/2024 11:15 AM EDT Office Visit [facility] MEDICINE [address] [place] [address] Pascual Daly MD [address] [place] [address] 01/03/2025 10:00 AM EDT Medication Management [facility] MEDICINE [address] [place] [address] Dasia Waters PharmD [address] [place] [address] 01/20/2025 10:30 AM EDT Clinical Support [facility] CHC MED & PEDS [address] [place] [address] Amanda Fernández, RN [address] [place] [address] 02/17/2025 10:00 AM EDT Office Visit [facility] ADULT DENTAL [address] [place] [address] Gabriela Gaitan [address] [place] [address] documented as of this encounter Goals Goal Patient Goal Type Associated Problems Recent Progress Patient-Stated? Author Blood Pressure < 140/90 Blood Pressure 128/62( 025 3:18 PM EDT) No Fani Heck PharmD documented as of this encounter Procedures Procedure Name Priority Date/Time Associated Diagnosis Comments POCT HEATHER-14 URINE DRUG SCREEN Routine 10/28/2024 10:05 AM EDT Fibromyalgia documented in this encounter Results * (ABNORMAL) POCT HEATHER-14 Urine Drug Screen (10/28/2024 10:05 AM EDT) THC Negative Negative Cocaine Screen, Urine Negative Negative Opiate Screen, Urine Negative Negative Methamphetamine Screen Urine Negative Negative Amphetamine Screen, Urine Negative Negative Benzodiazepines Screen, Urine Negative Negative Barbiturate Screen, Urine Negative Negative Methadone Screen, Urine Negative Negative Buprenophine Screen, Urine Negative Negative TCA, Urine Negative Negative MDMA Urine Negative Negative ng/mL Oxycodone Screen, Urine Positive(A) Negative Phencyclidine (PCP), Urine Negative Negative Propoxyphene, Urine Negative Negative Fentanyl, Urine Negative Negative Urine Urine specimen obtained by clean catch procedure / Unknown 10/28/2024 10:05 AM EDT Narrative Amanda Fernández, RN - 10/28/2024 10:05 AM EDT Internal Pass Control Lot# [id number] Exp: 02-18-26 Pascual Terry MD POINT OF CARE TEST EN TER/EDIT ORDERABLES Final Result documented in this encounter Visit Diagnoses Diagnosis Fibromyalgia Unspecified myalgia and myositis documented in this encounter Additional Health Concerns Assessment Noted Time PHQ-9 Depression Total Score: 9 01/29/20 24 11:00 AM EDT documented as of this encounter Care Teams Production Line Technician Relationship Specialty Start Date End Date Pascual Daly MD [address] [place] [address] PCP - General Internal Medicine 02/22/14 Dasia Waters PharmD [address] [place] [address] Pharmacist Internal Medicine 08/16/24 documented as of this encounter
--- OUTSIDE RECORDS SUMMARY | 2024-10-28 10:40 | XMS_ITS | Data Portability ---
Author Organization [facility] [employer] [facility], Main Office Address [address] [facility], [address] [place] [address] Care Team Providers Care Counterintelligence Agent Name Role Phone MARII MASSEY Primary Care Provider [facility] - 2ND FLOOR OTHER Assessment No assessment recorded. Plan of Treatment Reminders Order Date Submit Date Provider Last Modified By Organization Details Last Modified Time Details Appointments None recorded. Lab None recorded. Referral None recorded. Procedures None recorded. Surgeries None recorded. Imaging None recorded. Medication Orders oxycodone 5 mg tablet 2023 024 [facility] , [address] [place] [address], [address], 4 21:23:28 oxycodone 5 mg tablet 2023 024 [facility] , [address] [place] [address], [address], 4 13:28:18 Patient TargetsNo targets recorded. Patient InstructionsNo instructions recorded. Reason for Referral None Reported. 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 Dori Pena NP [address] [facility], [address], [place], [address], [facility] [employer] 4 15:49:21 Hypertensive disorder 27631792 Active 2023 Dori Pena NP [address], [address], [place], [address], [facility] 4 15:49:57 Gastroesophage al reflux disease 162759532 Active 2023 Dori Pena NP [address], [address], [place], [address], [facility] 4 15:51:24 Rheumatoid arthritis 79080447 Active 2023 Dori Pena NP [address], [address], [place], [address], [facility] 4 15:51:29 Mixed anxiety and depressive disorder 840724026 Active 2023 Dori Pena NP [address], [address], [place], [address], [facility] 4 15:51:45 Obesity 432391544 Active 2023 Dori Pena NP [address], [address], [place], [address], [facility] 4 15:51:51 Closed flail chest 383945596 Active 2023 Dori Pena NP [address], [address], [place], [address], [facility] 4 15:52:35 Asthenia 35083893 Active 2023 Dori Pena NP [address], [address], [place], [address], [facility] 4 15:52:46 Irritable bowel syndrome 22606856 Active 2023 Dori Pena NP [address], [address], [place], [address], [facility] 4 16:06:46 Recurrent falls 651644222 Active 2023 Dori Pena NP [address], [address], [place], [address], [facility] 4 16:38:03 Problem Notes None recorded. Procedures Surgical History Date Name Laterality Status Provider Name and Address Organization Details Recorded Time bypass gastroenterostomy completed Dori Pena NP [address] [facility], [address], [place], [address], [facility] 09/17/2023 15:40:41 Laparoscopic cholecystectomy completed Dori Pena NP [address] [facility], [address], [place], [address], [facility] 09/17/2023 15:41:25 fixed suspension procedure of urinary bladder neck completed Dori Pena NP [address] [facility], [address], [place], [address], [facility] 09/17/2023 15:42:01 Appendectomy completed Dori Pena NP [address] [facility], [address], [place], [address], [facility] 09/17/2023 15:42:11 bilateral cataract surgery completed Dori Pena NP [address] [facility], [address], [place], [address], [facility] 09/17/2023 15:42:26 Imaging Results None recorded. Procedure Notes None recorded. Medical Equipment None Reported. Allergies Allergen ID Allergen Name Allergen Category Reaction Reaction Severity Criticality Documentation Date Start Date Code Code System Note Provider Name and Address Organization Details Recorded Time 67354 celecoxib medicatio n other Not available unabletoasse 09/17/2023 16269 7 RxNorm unkno wn Dori Pena NP [address] [facility], [address], [place], [address], [facility] 4 15:37:14 63378 lorazepam medicatio n other Not available unabletoasse 09/17/2023 6470 RxNorm unkno wn Dori Pena NP [address] [facility], [address], [place], [address], [facility] 4 15:37:29 00288 tramadol medicatio n other Not available unabletoasse 09/17/2023 35761 RxNorm unkno wn Dori Pena NP [address] [facility], [address], [place], [address], [employer] 4 15:37:42 62574 zolpidem medicatio n other Not available unabletoasse 09/17/2023 23010 RxNorm unkno wn Dori Pena NP [address] [facility], [address], [place], [address], [employer] 4 15:37:56 Medications Name Sig Start Date [...] Address Organization Details Last Updated DateTime 4 59756.7 8 g 98 /min 18 /min 97.8 [degF] 94 % 94 % 150/77 mm[Hg] Dori Pena NP [address] [facility], [address], [place], [address], [employer] 4 10:49:41 Date Recorded Body weight Heart rate Respiratory rate Body temperature Oxygen saturation Oxygen saturation in Arterial blood by Pulse oximetry Systolic And Diastolic Provider Name and Address Organization Details Last Updated DateTime 4 67886.7 8 g 83 /min 18 /min 97 [degF] 98 % 98 % 148/74 mm[Hg] Dori Pena NP [address] [facility], [address], [place], [address], [facility] 4 13:29:12 Date Recorded Body weight Heart rate Respiratory rate Body temperature Oxygen saturation Oxygen saturation in Arterial blood by Pulse oximetry Systolic And Diastolic Provider Name and Address Organization Details Last Updated DateTime 4 72089.7 8 g 76 /min 18 /min 97.8 [degF] 97 % 97 % 128/78 mm[Hg] Dori Pena NP [address] [facility], [address], [place], [address], [facility] 4 12:05:35 Date Recorded Body weight Heart rate Respiratory rate Body temperature Oxygen saturation Oxygen saturation in Arterial blood by Pulse oximetry Systolic And Diastolic Provider Name and Address Organization Details Last Updated DateTime 4 91357 g 80 /min 18 /min 98 [degF] 95 % 95 % 111/60 mm[Hg] Dori Pena NP [address] [facility], [address], [place], [address], [facility] 4 11:40:36 Date Recorded Body weight Heart rate Respiratory rate Body temperature Oxygen saturation Oxygen saturation in Arterial blood by Pulse oximetry Systolic And Diastolic Provider Name and Address Organization Details Last Updated DateTime 4 38447 g 74 /min 18 /min 98.4 [degF] 95 % 95 % 124/68 mm[Hg] Dori Pena NP [address] [facility], [facility] [address], [place], [address], [facility] 4 13:12:09 Social History Question Answer Notes LastModified by [employer] Details LastModified Time Tobacco Smoking Status Never Smoker Dori Pena NP [address] [facility], [facility] [address], [place], [address], [facility] 09/17/2023 15:39:38 Do You Have An [...] Functional Status Question Answer Note LastModified by [employer] Details LastModified Time Do you use any [...] (RSV) vaccine, unspecified 4 completed Radha Jerman [facility] 09/19/2023 16:11:12 Tdap 4 completed [facility] 09/19/2023 16:11:26 Td(adult) unspecified formulation 3 completed [facility] 09/19/2023 16:11:43 Td(adult) unspecified formulation 3 completed [facility] 09/19/2023 16:11:51 Pneumococcal conjugate PCV 13 6 completed [facility] 09/19/2023 16:12:53 Pneumococcal conjugate PCV20, polysaccharide [id number] conjugate, adjuvant, PF 4 completed [facility] 09/19/2023 16:13:07 pneumococcal polysaccharide PPV23 1 completed [facility] 09/19/2023 16:13:22 pneumococcal polysaccharide PPV23 4 completed [facility] 09/19/2023 16:13:31 influenza, unspecified formulation 2 completed [facility] 09/19/2023 16:13:47 influenza, unspecified formulation 3 completed [facility] 09/19/2023 16:13:55 MMR 8 completed [facility] 09/19/2023 16:14:21 SARS-COV-2 (COVID-19) vaccine, UNSPECIFIED 1 completed Radha Stoll [facility] 09/19/2023 16:15:58 SARS-COV-2 (COVID-19) vaccine, UNSPECIFIED 1 completed Radha Stoll [facility] 09/19/2023 16:16:13 SARS-COV-2 (COVID-19) vaccine, UNSPECIFIED 1 completed Radha Stoll [facility] 09/19/2023 16:16:27 SARS-COV-2 (COVID-19) vaccine, UNSPECIFIED 2 completed Radha Stoll [facility] 09/19/2023 16:17:15 SARS-COV-2 (COVID-19) vaccine, UNSPECIFIED 2 completed Radha [facility] 09/19/2023 16:21:38 zoster, unspecified formulation 5 completed Radha [facility] 09/19/2023 16:23:04 zoster, unspecified formulation 9 completed Radha [facility] 09/19/2023 16:23:18 zoster, unspecified formulation 9 completed [facility] 09/19/2023 16:25:18 Past Encounters Encounter ID Performer Location Encounter Start Date Encounter Closed Date Diagnosis/Indication Diagnosis SNOMED-CT Code Diagnosis ICD10 Code Diagnosis Note [id number] Dori Pena NP [address] [address] 09/17/2023 15:22:09 09/23/2023 14:50:24 Closed flail chest 547501298 S22.5XXD with multiple rib fractures and clavicular [...] If stable no further workup needed. Asthenia 28296390 R53.1 with notable weakness due to injuryPT OT eval and treatsuppo rtive caremonito r Type 1 frank betes mellitus 04883231 E10.9 tresiba 30 unit sc qhsinsulin 2-14 SSI sc qidhsmonit or BS and adjust as needed Hypertensive disorder 38 774417 I10 not on meds for thisamlodi pine 10 mg po dailylosar zaragoza 100 mg po dailymonit or bp/vitals 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 783709 E06.3 levothyrox ine 112 mcg dailymonit or tsh as needed Gastroesop hageal reflux disease 474962539 K21.9 esomeprazo le 40 mg o daily Obesity 363939399 E66.9 dust handler to consultsup portive careportio n controlmon itor weight Mixed anxi ety and depressive disorder 474311461 F41.8 aripiprazo le 20 mg dailyvenla faxine 150 mg po dailyprazo sin 6 mg po qhsmelaton in 3 mg po qhshydroxy zine 10 mg po q 8 hours prn anxietyclo nazepam 0.5 mg po q 8 hours prn anxietycar vedilol 6.25 mg po bidmonitor Rheumatoid arthritis 698 59574 M06.9 enbrel 50 mg sc q 7dayscalci um citrate 400 mg po bidmonitor for reliefsee pain management above with flail chest Irritable bowel syndrome 61854292 K58.9 ? IBSlinzess 290 mcg q ammonitor Deficiency anemias 95509 3007 D53.9 folic acidvit [id number] Coronary arteriosclerosis 72499818 I25.10 hx of MIatorvast atin 20 mg po dailyclopi dogrel 75 mg po q amsee above htn medsmonito r Recurrent falls 80235763 2 R29.6 reports history of falls with 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 to help her and balance issuesrepo rts more than 5 falls/year supportive caremonito r [id number] JESSICA HINDS, AAKASH [place] [address] [place] [address] 09/18/2023 13:29:08 09/23/2023 15:13:15 Closed flail chest 028816722 S22.5XXD with multiple rib fractures and clavicular [...] If stable no further workup needed. Asthenia 02261852 R53.1 with notable weakness due to injuryPT OT eval and treatsuppo rtive caremonito r Type 1 frank betes mellitus 90787887 E10.9 A1C 8.8%Contin eu:tresiba 30 unit sc qhsinsulin 2-14 SSI sc qidmonitor BS and adjust as needed Hypertensive disorder 38 950093 I10 amlodipine 10 mg po dailylosar zaragoza 100 mg po dailycoreg 6.25 mg bidmonitor bp/vitals 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 188761 E06.3 levothyrox ine 112 mcg dailymonit or tsh as needed Gastroesop hageal reflux disease 397514792 K21.9 esomeprazo le 40 mg o daily Deficiency anemias 36543 3007 D53.9 folic acidvit [id number] Obesity 783144053 E66.9 dust handler to consultsup portive careportio n controlmon itor weight Mixed anxi ety and depressive disorder 856960455 F41.8 aripiprazo le 20 mg dailyvenla faxine 150 mg po dailyprazo sin 6 mg po qhsmelaton in 3 mg po qhshydroxy zine 10 mg po q 8 hours prn anxietyclo nazepam 0.5 mg po q 8 hours prn anxietymon itor Rheumatoid arthritis 698 33997 M06.9 enbrel 50 mg sc q 7dayscalci um citrate 400 mg po bidmonitor for reliefsee pain management above with flail chest Irritable bowel syndrome 86604092 K58.9 ? IBSlinzess 290 mcg q ammonitor Coronary arteriosclerosis 10209749 I25.10 hx of MIatorvast atin 20 mg po dailyclopi dogrel 75 mg po q amsee above htn medsmonito r Recurrent falls 80371382 2 R29.6 reports history of falls with 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 to help her and balance issuesrepo rts more than 5 falls/year supportive caremonito r [id number] Dori Pena NP [address] [address] 09/22/2023 14:27:57 09/29/2023 19:16:34 Closed flail chest 358939596 S22.5XXD with multiple rib fractures and clavicular [...] If stable no further workup needed. Asthenia 62515979 R53.1 with notable weakness due to injuryPT OT eval and treatsuppo rtive caremonito r Type 1 frank betes mellitus 03457388 E10.9 BS 81-252 vuhoehC4F 8.8%contin ue:tresiba 30 unit sc qhsinsulin 2-14 SSI sc qidmonitor BS and adjust as needed Hypertensive disorder 38 037396 I10 improving lately, boderline highcontam lodipine 10 mg po dailylosar zaragoza 100 mg po dailycoreg 6.25 mg bidmonitor bp/vitals 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 156111 E06.3 contlevoth yroxine 112 mcg dailymonit or tsh as needed Gastroesop hageal reflux disease 856378168 K21.9 esomeprazo le 40 mg o daily Deficiency anemias 37313 3007 D53.9 folic acidvit o61jsqcrsg Obesity 877108388 E66.9 dust handler to consultsup portive careportio n controlmon itor weight Mixed anxi ety and depressive disorder 964822453 F41.8 contaripip razole 20 mg dailyvenla faxine 150 mg po dailyprazo sin 6 mg po qhsmelaton in 3 mg po qhshydroxy zine 10 mg po q 8 hours prn anxietyclo nazepam 0.5 mg po q 8 hours prn anxietymon itor Rheumatoid arthritis 698 94053 M06.9 enbrel 50 mg sc q 7dayscalci um citrate 400 mg po bidmonitor for reliefsee pain management above with flail chest Irritable bowel syndrome 69248746 K58.9 ? IBSlinzess 290 mcg q ammonitor Coronary arteriosclerosis 96396731 I25.10 hx of MIatorvast atin 20 mg po dailyclopi dogrel 75 mg po q amsee above htn medsmonito r Recurrent falls 51598265 2 R29.6 reports history of falls with 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 to help her and balance issuesrepo rts more than 5 falls/year supportive caremonito r Acute cystitis 63389393 N30.00 reports dysuria and occassiona l incontinen ce latelyurin e culture returned showing > 100,000 klebsiella pneumo ssp and started on ceftriaxon e 1gram IM and cefpodoxim e 200 mg po bid x 7 days with probiotic by on provider over the weekend.mo nitor [id number] Jonel Alamo MD [address] [address] 09/23/2023 11:01:43 09/29/2023 19:25:59 Closed fracture of multiple left ribs 7087246472 7030605 S22.42XG see HPIleft rib fxs 2-6 with concern for flail chest , with clavicular fxeval by surgery with no interventi on indicatedm onitor respirator y statusutil ize incentive spirometer monitor for pain controlupd ate surgery with concerns Asthenia 80721699 R53.1 PT OT eval and treatmonit or need for increased support in community Type 1 frank betes mellitus 01328729 E10.9 tresiba 30 units qdSS insulinmon itor glucose and need to titrate Hypertensive disorder 38 713077 I10 norvasc 10 mg qdcoreg 6.25 mg bidlosarta n 100 mg qdcurrentl y elevatedmo nitor need for increased control 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 706073 E06.3 hx of added to PMHmaintai priscilla onsynthroi d 112 mcg qdmonitor tsh prn Gastroesop hageal reflux disease 698063525 K21.9 nexium 40 mg qd continuedm onitor for effect Obesity 228636985 E66.09 dietary eval in patient with baseline DM Mixed anxi ety and depressive disorder 724752762 F41.8 carrying dx requiring multiple medication swill continue out patient medication s includinga bility and ativanmoni tor moodpsych eval prn Rheumatoid arthritis 698 16192 M06.9 remains onenbrel 50 mg q friday Irritable bowel syndrome 44579071 K58.9 ? IBSlinzess 290 mcg q ammonitor Coronary arteriosclerosis 57182868 I25.10 hx of MIatorvast atin 20 mg po dailyclopi dogrel 75 mg po q amsee above htn medsmonito r Recurrent falls 28110943 2 R29.6 reports history of falls with 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 to help her and balance issuesrepo rts more than 5 falls/year supportive caremonito r Solitary n odule of lung 473318741 R91.1 question right 4 mm upper lobe nodulecons ider repeat scan in 6-12 months Primary insomnia 5410763 F51.01 continue melatoninm onitor need to titrate Abnormal weight loss 267 233392 R63.4 weight dropped > 12 lbs in a few days from admitappea rs to be error in initial intake weightwill monitor Acute cystitis 74432024 N30.00 now on cefpodoxim e to complete coursemoni tor for recurrent disease [id number] Dori Pena NP [address] [address] 09/24/2023 09:21:20 09/29/2023 19:39:42 Closed fracture of multiple left ribs 4858184068 6080194 S22.42XG with multiple rib fractures and clavicular [...] in am off pmadjust as needed. Asthenia 63505028 R53.1 PT OT eval and treatmonit or need for increased support in community Type 1 frank betes mellitus 28262780 E10.9 BS controlled conttresib a 30 units qdSS insulinmon itor glucose and need to titrate Hypertensive disorder 38 658579 I10 stable on below regimennor vasc 10 mg qdcoreg 6.25 mg bidlosarta n 100 mg qdcurrentl y elevatedmo nitor need for increased control 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 171803 E06.3 hx of added to PMHmaintai priscilla onsynthroi d 112 mcg qdmonitor tsh prn Gastroesop hageal reflux disease 012584611 K21.9 nexium 40 mg qd continuedm onitor for effect Obesity 400560603 E66.09 dietary eval in patient with baseline DM Rheumatoid arthritis 698 92283 M06.9 remains onenbrel 50 mg q friday Irritable bowel syndrome 65781602 K58.9 ? IBSlinzess 290 mcg q ammonitor Coronary arteriosclerosis 17690680 I25.10 hx of MIatorvast atin 20 mg po dailyclopi dogrel 75 mg po q amsee above htn medsmonito r Recurrent falls 23535796 2 R29.6 reports history of falls with 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 to help her and balance issuesrepo rts more than 5 falls/year supportive caremonito r Primary insomnia 9901398 F51.01 continueme latoninmon itor need to titrate Abnormal weight loss 267 622396 R63.4 weight dropped > 12 lbs in a few days from admitappea rs to be error in initial intake weight6/5 reweigh pt todaywill monitor Acute cystitis 62256010 N30.00 now on cefpodoxim e to complete courseaysm ptomaticmo nitor for recurrent disease [id number] Dori Pena NP [facility] [address] [address] 09/29/2023 10:39:23 10/03/2023 11:24:38 Closed fracture of multiple left ribs 0237374399 8738658 S22.42XG with multiple rib fractures and clavicular [...] to left shoulderad just as needed. Asthenia 97583729 R53.1 PT OT eval and treatmonit or need for increased support in community Type 1 frank betes mellitus 93762674 E10.9 BS controlled conttresib a 30 units qdSS insulinmon itor glucose and need to titrate Hypertensive disorder 38 391948 I10 stable on below regimen with slightly high bp likley related to pain, monitorcon tnorvasc 10 mg qdcoreg 6.25 mg bidlosarta n 100 mg qdcurrentl y elevatedmo nitor need for increased control 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 915001 E06.3 hx of added to PMHmaintai priscilla onsynthroi d 112 mcg qdmonitor tsh prn Gastroesop hageal reflux disease 744856156 K21.9 contnexium 40 mg qdmonitor for effect Obesity 314738292 E66.09 dietary evalbaseli ne DMweight today please Rheumatoid arthritis 698 82595 M06.9 remains onenbrel 50 mg q friday Irritable bowel syndrome 71634355 K58.9 ? IBSlinzess 290 mcg q ammonitor Coronary arteriosclerosis 28673234 I25.10 hx of MIatorvast atin 20 mg po dailyclopi dogrel 75 mg po q amsee above htn medsmonito r Recurrent falls 20345576 2 R29.6 reports history of falls with 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 to help her and balance issuesrepo rts more than 5 falls/year supportive caremonito r Primary insomnia 2758683 F51.01 continueme latoninmon itor need to titrate Abnormal weight loss 267 527061 R63.4 weight dropped > 12 lbs in a few days from admitappea rs to be error in initial intake weight6/10 reweigh pt todaywill monitor Acute cystitis 01698425 N30.00 resolved cefpodoxim e to complete courseaysm ptomaticmo nitor for recurrent disease Mixed anxi ety and depressive disorder 216311784 F41.8 contaripip razole 20 mg dailyvenla faxine 150 mg po dailyprazo sin 6 mg po qhsmelaton in 3 mg po qhshydroxy zine 10 mg po q 8 hours prn anxiety6/1 0 renew clonazepam 0.5 mg po q 8 hours prn anxietymon itor [id number] [facility] [address] [place] [address] 10/02/2023 13:28:32 10/07/2023 10:08:18 Hypertensive disorder 99701829 I10 stable on below regimen as it comes down to 120s systolic post medication contnorvas c 10 mg qdcoreg 6.25 mg bidlosarta n 100 mg qdmonitor need for increased control Closed fra cture of multiple left ribs 0125771402 0145766 S22.42XG with left rib fxs 2-6 with [...] OT eval and txadjust as needed. Asthenia 83511693 R53.1 PT OT eval and treatmonit or need for increased support in community Type 1 frank betes mellitus 80760552 E10.9 BS controlled glucernaco nttresiba 30 units qdSS insulinmon itor glucose and need to titrate Gastroesop hageal reflux disease 324567384 K21.9 contnexium 40 mg qdmonitor for effect Rheumatoid arthritis 698 67204 M06.9 remains onenbrel 50 mg q friday Irritable bowel syndrome 50358138 K58.9 ? IBSlinzess 290 mcg q ammonitor Coronary arteriosclerosis 82167808 I25.10 hx of MIcoreg 6.25 mg po bidatorvas tatin 20 mg po dailyclopi dogrel 75 mg po q amsee above htn medsmonito r Recurrent falls 31001331 2 R29.6 reports history of falls with 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 to help her and balance issuesrepo rts more than 5 falls/year supportive care and therapy here for balance, strengthen ing, gait, mobility, endurancem onitor Abnormal weight loss 267 054766 R63.4 weight dropped > 12 lbs in a few days from admitappea rs to be error in initial intake weight09/28 reweigh pt today10/01 reweight pt today, no weight since 09/21will monitor Mixed anxi ety and depressive disorder 384859083 F41.8 contaripip razole 20 mg dailyvenla faxine 150 mg po dailyprazo sin 6 mg po qhsmelaton in 3 mg po qhshydroxy zine 10 mg po q 8 hours prn anxiety09/19 0 renew clonazepam 0.5 mg po q 8 hours prn anxiety x 14 days10/01 cont as abovemonit or [id number] Dori Pena NP [facility] [address] 10/06/2023 12:02:36 10/09/2023 09:34:42 Closed fracture of multiple left ribs 4052149558 5535079 S22.42XG with left rib fxs 2-6 with [...] txadjust as needed. Abnormal weight loss 267 709721 R63.4 weight dropped > 12 lbs in a few days from admitappea rs to be error in initial intake weight10/04 160 lbs which is same as 09/22/23will monitor Hypertensive disorder 38 902511 I10 stable on below regimen as it comes down to 120s systolic post medication contnorvas c 10 mg qdcoreg 6.25 mg bidlosarta n 100 mg qdmonitor need for increased control Asthenia 81714778 R53.1 PT OT eval and treatmonit or need for increased support in community Type 1 frank betes mellitus 45122031 E10.9 pt having syrup and gingerale at [...] and need to titrate Rheumatoid arthritis 698 55834 M06.9 remains onenbrel 50 mg q friday Irritable bowel syndrome 59749609 K58.9 with constipati on today, states many days10/05 mon given today, will do supp if no bm by 4 pm10/05 start senna 8.6 mg po daily? IBSlinzess 290 mcg q ammonitor Coronary arteriosclerosis 59526201 I25.10 hx of MIcoreg 6.25 mg po bidatorvas tatin 20 mg po dailyclopi dogrel 75 mg po q amsee above htn medsmonito r Mixed anxi ety and depressive disorder [id number] F41.8 contaripip razole 20 mg dailyvenla faxine 150 mg po dailyprazo sin 6 mg po qhsmelaton in 3 mg po qhshydroxy zine 10 mg po q 8 hours prn anxiety6/1 0 renew clonazepam 0.5 mg po q 8 hours prn anxiety x 14 days10/01 cont as above10/05 stable today with above planmonito r [id number] oDri Pena, [facility]ASH [facility] [address] 10/08/2023 11:40:06 10/15/2023 15:50:32 Type 1 diabetes mellitus 48594015 E10.9 pt having syrup and gingerale at [...] and need to titrate Irritable bowel syndrome 44054884 K58.9 with constipati on resolved with mom on 7 fri given today10/05 start senna 8.6 mg po daily? IBSlinzess 290 mcg q am10/07 having bm regularly nowmonitor Closed fra cture of multiple left ribs [id number] S22.42XG with left rib fxs 2-6 with [...] txadjust as needed. Abnormal weight loss 267 139378 R63.4 weight dropped > 12 lbs in a few days from admitappea rs to be error in initial intake weight10/04 160 lbs which is same as 09/22/23, ? incorrect admit weight but seems stable nowutll monitor Hypertensive disorder 38 366937 I10 stable on below regimen as it comes down to 120s systolic post medication contnorvas c 10 mg qdcoreg 6.25 mg bidlosarta n 100 mg qdmonitor need for increased control Asthenia 63618156 R53.1 PT OT eval and treatmonit or need for increased support in community Rheumatoid arthritis 698 37182 M06.9 remains onenbrel 50 mg q friday Coronary arteriosclerosis 78011285 I25.10 hx of MIcoreg 6.25 mg po bidatorvas tatin 20 mg po dailyclopi dogrel 75 mg po q amsee above htn medsmonito r Mixed anxi ety and depressive disorder 738969776 F41.8 contaripip razole 20 mg dailyvenla faxine 150 mg po dailyprazo sin 6 mg po qhsmelaton in 3 mg po qhshydroxy zine 10 mg po q 8 hours prn anxiety09/19 0 renew clonazepam 0.5 mg po q 8 hours prn anxiety x 14 days10/01 cont as above10/05 stable today with above plan10/07 stable today with above planmonito r Hyperkalemia 61036309 E8 7.5 k of 5.7 on give kayexalate 15 gm today10/08 bmp in ammonitor for additional e lyte abbormalit ies [id number] Dori Pena NP [facility] [place] [address] 10/09/2023 13:08:06 10/15/2023 16:27:22 Closed fracture of multiple left ribs [id number] 8904471 S22.42XG resolving with left rib fxs 2-6 [...] prnadjust as needed outpt with pcp Hyperkalemia 72399275 E8 7.5 k of 5.7 on give kayexalate 15 gm on 10/07monito r for additional e lyte abnormalit ies outpt with pcp Type 1 frank betes mellitus 85622057 E10.9 BS slightly high while at rehab with eating sugary foods/drin ksPlan: diet sodas and diet syrup and less sugary choicescon tglucernat resiba 30 units qdSS insulin with meals as per home schedmonit or glucose and need to titrate outpt with pcp outpt Irritable bowel syndrome 16532323 K58.9 with constipati on resolvedse nna 8.6 mg po daily (started at rehab)? IBSlinzess 290 mcg q ammonitor with pcp outpt Abnormal weight loss 267 922834 R63.4 weight dropped > 12 lbs in a few days from admitappea rs to be error in initial intake weight10/04 160 lbs which is same as 09/22/23, ? incorrect admit weight but seems stable nowmonitor oupt with pcp Hypertensive disorder 38 535038 I10 stable on below regimen as it comes down to 120s systolic post medication contnorvas c 10 mg qdcoreg 6.25 mg bidlosarta n 100 mg qdmonitor need for increased control outpt with pcp Asthenia 89701073 R53.1 PT OT eval and treat outpt prnmonitor need for increased support in community with pcp Rheumatoid arthritis 698 30443 M06.9 remains onenbrel 50 mg q fridaymoni tor outpt with pcp Coronary arteriosclerosis 24611922 I25.10 hx of MIcoreg 6.25 mg po bidatorvas tatin 20 mg po dailyclopi dogrel 75 mg po q amsee above htn medsmonito r outpt wtih pcp Mixed anxi ety and depressive disorder 403474623 F41.8 contaripip razole 20 mg dailyvenla faxine 150 mg po dailyprazo sin 6 mg po qhsmelaton in 3 mg po qhshydroxy zine 10 mg po q 8 hours prn anxietyclo nazepam 0.5 mg po q 8 hours prn anxietymon itor outpt with pcp Gastroesop hageal reflux disease 472125490 K21.9 contnexium 40 mg qdmonitor for effect outpt with pcp Recurrent falls 23522153 2 R29.6 reports history of falls with 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 to help her and balance issuesrepo rts more than 5 falls/year supportive care and therapy here for balance, strengthen ing, gait, mobility, endurance outpt rpnmonitor outpt with pcp 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 088056 E06.3 hx of added to PMHmaintai priscilla onsynthroi d 112 mcg qdmonitor tsh prn with pcp Obesity 513934913 E66.09 dietary evalbaseli ne DMweight to be monitored with pcp outpt Primary insomnia 0019548 F51.01 continueme latoninmon itor need to titrate outpt Acute cystitis 98798091 N30.00 resolved cefpodoxim e to complete courseaysm ptomaticmo nitor for recurrent disease outpt with pcp Health Concerns Section Related Observation LastModified by Organization Detai ls LastModified Time None Recorded Concern Status LastModified by Organization Details LastModified Time None Recorded Advance Directives Directive N: Payers Insurance Date Sequence Insurance Name Policy Number Policy Patten Covered Member ID Patten Member ID Guarantor Name 10/15/2023 1 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 She has her sling in place [...] a cane usually Dori Pena NP [address] [facility], [address], [place], [address], [facility] [place] 10/02/2023 13:48:50 10/06/2023 text/html Pt is seen for a n acute rounding visit. Brandie is working here at [facility] and is feeling good and more mobile lately with left sling in place. She continues with therapy and making gains. She was treated for a UTI when she first came to [facility] and denies any urinary symptoms. Nursing noted [...] a cane usually Dori Pena NP [address] [facility], [address], [place], [address], [facility] [employer] [facility] 10/06/2023 12:26:22 10/08/2023 text/html Pt is seen [...] in a sling for comfort. While at [facility]:She was treated for a UTI when she first came to [facility] and denies any urinary symptoms. Nursing noted [...] a cane usually Dori Pena, AAKASH [address] [facility], [address], [place], [place], [address], [facility] [employer] 10/08/2023 12:05:52 10/09/2023 text/html Pt is seen [...] in a sling for comfort. While at [facility]:She was treated for a UTI when she first came to [facility] and denies any urinary symptoms. Nursing noted [...] a cane usually Dori Pena NP [address] [facility], [address], [place], [address], [facility] [place] 10/09/2023 16:50:56 OBGyn Episode No OBEpisode recorded.
--- OUTSIDE RECORDS SUMMARY | 2024-10-28 10:40 | XMS_ITS | Clinical Summary ---
Author Organization [address] [place] [address] Address [address] [place] [address] Phone Care Team Providers Care [employer] Cake Decorator Name Role Phone Pascual Darnell MD Primary Care Provi chio Allergies Active Allergy Reactions Criticality Noted Date Comments Clonazepam 09/02/2024 Medications No known medications Encounters Date Type Department Care Team Description 09/02/2024 10:30 AM EDT Consult Orthopedic Surgery [facility] [address] [facility] [address] [place] [address] Luciano Smith, DPM Dermatophytosis of [...] AM EDT Office Visit Orthopedic Surgery - [place] [address] [facility] [address] [place] [address] Luciano Smith, DPM [address] [facility] [address] [place] [address] Health Maintenance Due Date Last Done Comments [...] ID:[id number] Group ID:[id number] Type:Not on file Address: [place] [address] [address] Care Teams [employer] Cake Decorator Relationship Specialty Start Date End Date Pascual Darnell MD [address] [place] [address] [phone] PCP - General Internal Medicine 06/18/24
[2024-10-28 15:53] LABS: MANUAL DIFF FLAG NO
[2024-10-28 16:25] LABS: Hematocrit 36.6 % (37.0-47.0); Hemoglobin 11.7 g/dl (12.0-16.0); Imm Gran Abs Auto 0.02 X10*3/uL (0.00-0.03); Imm Gran Pct Auto 0.2 % (0.0-0.4); Lymphocytes Absolute Auto 3.0 X10*3/uL (1.2-4.9); Mean Corpuscular HGB Conc 32.0 g/dl (31.0-35.0); Mean Corpuscular Hemoglobin 28.1 pg (27.0-33.0); Mean Corpuscular Volume 87.8 fL (80.0-98.0); NRBC Abs Auto 0.000 X10*3/uL (0.0-0.012); NRBC Pct Auto 0.0 /100WBC (0.0-0.2); Platelet Count 199 X10*3/uL (160-400); Red Blood Count 4.17 X10*6/uL (4.20-5.50); White Blood Count 9.5 X10*3/uL (4.8-10.8)
[2024-10-28 16:26] LABS: Alanine Aminotransferase 43 U/L (0-31); Albumin Level 4.2 g/dL (3.5-5.0); Alkaline Phosphatase 73 U/L (39-117); Anion Gap 14 (12-20); Aspartate Amino Transferase 37 U/L (5-31); Blood Urea Nitrogen 15 mg/dL (9-16); Calcium 9.0 mg/dL (8.4-10.2); Carbon Dioxide 25 mmol/L (22-29); Chloride 104 mmol/L (96-108); Cholesterol 135 mg/dL (<200); Estimated Glomerular Filt Rate 47; HDL Cholesterol 57 mg/dL (>40); Potassium 3.9 mmol/L (3.3-5.1); Sodium 139 mmol/L (135-145); Total Protein 6.6 g/dL (6.5-8.0); Triglycerides 163 mg/dL (<150)
[2024-10-29 08:29] LABS: HBS Num1 0.00 mIU/mL (0-7.99); HBc Num1 0.06 S/CO (0.00-0.79); HBsAGNum1 0.39 S/CO (0.00-0.99); Hepatitis A Antibody IgM 0.27 Index (0-0.79); Hepatitis B Surface Antigen Negative (Negative); ~HepC Num1 0.72 S/CO (0.00-0.79); ~Hepatitis A Antibody IgM Nonreactive (Nonreactive); ~Hepatitis B Surface Antibody NONREACTIVE (Nonreactive); ~Hepatitis C Antibody Nonreactive (Nonreactive)
[2024-10-30 15:44] LABS: HCV Log PCR <1.18 NOT DETECTED Log IU/mL (NOT DETECTED); HepC Viral Load <15 NOT DETECTED IU/mL (NOT DETECTED)
[2024-10-31 08:29] LABS: TS Negative Control Passed; TS Panel A 1; TS Panel B 0; TS Positive Control Passed; TSpotTB Negative (Negative)
== END 2024-10-28 10:02 | disposition home or self-care (01) ==
LOC: HO.CHCLDS 10:01
PROVIDERS: PCP Internal Medicine; Referring Provider Nurse Practitioner Adult Health; Visit Provider Student in an Organized Health Care Education/Training Program
DX: Z11.59 Encounter for screening for other viral diseases (principal); Z11.1 Encounter for screening for respiratory tuberculosis; E21.1 Secondary hyperparathyroidism, not elsewhere classified; M81.0 Age-related osteoporosis without current pathological fracture; M05.9 Rheumatoid arthritis with rheumatoid factor, unspecified; E55.9 Vitamin D deficiency, unspecified
CPT/HCPCS: 36415; 80053; 80061; 82306; 85025; 85652; 86140; 86481; 86704; 86706; 86709; 86803; 87340; 87522

== ENCOUNTER 2024-10-29 10:10 | Outpatient (AMB) | payer OTHER, SELFPAY ==
--- OUTSIDE RECORDS SUMMARY | 2024-10-28 10:30 | XMS_ITS | Encounter Summary ---
Author Organization [employer] Address [address] [facility] [address] [place] [address] Care Team Providers Care Online Education Manager Name Role Phone Pascual Daly MD Primary Care Provide r Dasia Waters PharmD Unavailable Reason for Visit * Reason Comments WIRE STEWARD Encounter Details Date Type Department Care Team ([facility] st Contact Info) Description 10/28/2024 10:30 AM EDT Clinical Support [facility] CHC MED & PEDS [address] [place] [address] Amanda Fernández RN [address] [place] [address] Fibromyalgia Social History Tobacco Use Types Packs/Day [...] y.o. 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) 08/27/2022 Gastroesophageal reflux disease without esophagitis 05/13/2022 Major depressive disorder with psychotic features ([facility]) 03/26/2022 Neuropathy, cervical 02/13/2018 Hypertension 09/02/2012 Recurrent falls 12/04/2011 Type 2 diabetes mellitus with right eye affected by mild nonproliferative retinopathy without macular edema, with long-term current use of insulin ([facility]) 04/21/1959 Eczema 04/21/1959 Fibromyalgia 04/21/1959 Hyperlipidemia 04/21/1959 Hypothyroidism 04/21/1959 Iron deficiency anemia 04/21/1959 ASSESSMENT: Encounter Diagnosis Name Primary? Fibromyalgia PLAN: Information on pain group given: Previously discussed Information on acupuncture given: Previously discussed Narcan education provided: Previously discussed Brandie Santana will continue taking medication as prescribed and follow up at the next WIRE STEWARD visit or sooner if needed. Brandie Santana has verbalized understanding of care plan. Future Appointments Date Time Provider Department Center 10/28/2024 10:30 AM [facility] 11/05/2024 9:00 AM Christian Winchester DDS ADLT DENT [facility] 11/16/2024 11:15 AM Pascual Terry MD MEDICINE [facility] 01/03/2025 10:00 AM Dasia Waters PharmD MEDICINE [facility] 01/20/2025 10:30 AM Amanda Fern[facility] RN [facility] 02/17/2025 10:00 AM Gabrielatony Gaitan ADLT DENT [facility] Amanda Fernández RN [1] Social History Tobacco [...] Rfl: Continuous Glucose Sensor (Dexcom G7 Sensor) [facility], Disp: , Rfl: D3 Super Strength [...] Description 11/05/2024 9:00 AM EDT Office Visit [facility] ADULT DENTAL [address] [place] [address] Christian Winchester DDS [address] [place] [address] 11/16/2024 11:15 AM EDT Office Visit [facility] MEDICINE [address] [place] [address] Pascual Daly MD [address] [place] [address] 01/03/2025 10:00 AM EDT Medication Management [facility] MEDICINE [address] [place] [address] Dasia Waters PharmD [address] [place] [address] 01/20/2025 10:30 AM EDT Clinical Support [facility] CHC MED & PEDS [address] [place] [address] Amanda Fernández, RN [address] [place] [address] 02/17/2025 10:00 AM EDT Office Visit [facility] ADULT DENTAL [address] [place] [address] Gabriela Gaitan [address] [place] [address] documented as of this encounter Goals Goal [...] 10:05 AM EDT Internal Pass Control Lot# [id number] Exp: 02-18-26 Pascual Terry MD POINT OF CARE TEST EN TER/EDIT ORDERABLES Final Result documented in this encounter Visit Diagnoses Diagnosis Fibromyalgia Unspecified myalgia and myositis documented in this encounter Additional Health Concerns Assessment Noted Time PHQ-9 Depression Total Score: 9 01/29/20 24 11:00 AM EDT documented as of this encounter Care Teams Online Education Manager Relationship Specialty Start Date End Date Pascual Daly MD [address] [place] [address] PCP - General Internal Medicine 02/22/14 Dasia Waters PharmD [address] [place] [address] Pharmacist Internal Medicine 08/16/24 documented as of this encounter
[2024-10-29 10:33] VITALS: BMI 31.3
--- NOTE | 2024-10-29 10:33 | A.OFFVIS_ITS ---
Vital Signs 10/29/24 10:33 Height 4 ft 11 in Weight 155 lb BMI 31.3 Intake Visit Reasons: OV - Left Ring Finger Contracture Intake Note: Brandie is a 74 year old right hand dominant female who presents today for a follow up of her left ring finger contracture. She was Last seen with Shahriar Cassidy who reports that her symptoms were not consistent with Trigger finger and advised for MD evaluation. Patient reports ongoing finger locking for about 1.5 years now, hx of injection with no relief. Patient reports that her contracture has worsened. Commercial Real Estate Manager Required: Yes Commercial Real Estate Manager Language: Creative Services Producer Name: Carrie richey, [phone] Allergies lorazepam (LORAZEPAM) Allergy (Severe, Verified 10/29/24 10:36) DELIRIUM celecoxib (From Celebrex) Allergy (Intermediate, Verified 10/29/24 10:36) ITCHING tramadol (TRAMADOL) Allergy (Intermediate, Verified 10/29/24 10:36) ITCHING zolpidem (Ambien) Allergy (Unknown, Verified 10/29/24 10:36) unknown HPI HPI OV - Left Ring Finger Contracture: Details: The patient is a 74-year-old Monegasque-speaking woman who is seen today with a family friend. We used the facility security officer services for communication. She reports having rheumatoid arthritis, her chief complaint is of inability to extend her left ring finger, and the left ring finger being stuck in her palm. She says this has been going on for about 1.5 years. She has multiple medical comorbidities. She has seropositive rheumatoid arthritis. It looks like Enbrel was discontinued last year and she is currently on Actemra She also has hepatitis-C, history of MO, diabetes, fibromyalgia anxiety and depression as well as other medical problems. Please see her chart for additional information is necessary. [facility] Medical History Heart palpitations Hypoglycemia due to insulin Elevated parathyroid hormone Osteoporosis Hyperlipidemia (04/21/1959) Depressive disorder (04/21/1959) Nutritional anemia (04/21/1959) Shortness of breath Hypothyroidism (04/21/1959) Anemia Chronic gastritis NSTEMI (non-ST elevated myocardial infarction) Recurrent falls (12/04/11) Iron deficiency anemia (04/21/1959) Fibromyositis (04/21/1959) Eczema (04/21/1959) High risk medication use Hepatitis C antibody positive in blood Screening for osteoporosis Screening for viral disease Joint swelling Overweight (BMI 25.0-29.9) Neck pain Swelling of knee joint, right Intra-abdominal abscess Diabetes Elevated liver function tests Intestinal malabsorption following gastrectomy Obesity (BMI 30-39.9) 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 Hypertension Cholecystitis Hyperlipidemia, unspecified Essential hypertension Atherosclerotic cardiovascular disease Fibromyalgia Folliculitis Anxiety Depression History of myocardial infarction Diabetes type 1, uncontrolled 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 Mother CVA (cerebral vascular accident) Sister Hypertension Brother Hypertension Liver cancer Social History Household Members: None Housing: Apartment Are you a primary regular senior care provider to a significant other at home: No Do you presently have visiting nurse or other home services: Yes Unable to assess alcohol history related to: Unable to respond Alcohol intake: never Patient Tobacco Use Status: Never used Tobacco Advance Directives Date on File: 09/17/23 service: No Current occupational status: disabled Current occupation: right hand dominant Physical Exam Vital Signs: BMI result Body Mass Index 31.3 Extrem Other: The patient was alert oriented and in no acute distress. Regarding her left hand, the left ring finger is held flexed into her palm and ulnarly deviated. Her middle finger is also noted to be ulnarly deviated. She appears to have ulnar subluxation of both the middle and ring finger EDC tendons. With patient's I was able to get her to bring her hand flat on the table. She finds this uncomfortable what but was able to stretch it to this position for a while. I was then able to have her elevate her hand off the table and I could then see that the EDC tendons to both the middle and ring fingers were indeed intact and able to hold her in extension. I should note with the ring finger that there is definitely a catching that happens and going from tight flexion to partial flexion so I can not rule out a possible trigger finger as well. As she also appears to hold her small finger flex like this most of the time she is developing a flexion contracture and some tightness on the volar side of the hand/finger that would likely benefit from some OT hand therapy. The EDC tendons to the index and small fingers appear to be well aligned at present. Assessment & Plan Assessment & Plan (1) Nontraumatic subluxation of extensor tendon at metacarpophalangeal joint of left hand: Code(s): M66.242 - Spontaneous rupture of extensor tendons, left hand Category: Medical Plan Assessment and plan: 1. Rheumatoid arthritis 2. Left ring finger EDC tendon subluxation/dislocation Related to ruptured radial sagittal band and RA 3. Left ring finger possible trigger finger 4. Left middle finger EDC tendon subluxation Related to ruptured radial sagittal band and RA 5. Left ring finger flexion contracture/tightness secondary to above conditions. I educated the patient about this condition I want to begin with some OT hand therapy. I think that she would benefit from a custom thermoplastic splint that will hold the left middle and ring finger MCP joints in extension and in proper alignment. Once the tightness is improved, we might be able to proceed with an operative realignment procedure of the EDC tendons to the left middle and ring fingers. She understands that she would need to be in a cast and/or orthosis for at least 6-8 weeks afterwards. We would also need to make sure her diabetes is well controlled, and talk with Rheumatology about when to stop her Actemra. She would need to be off the Actemra until she has good healing. Please note that greater than 45 minutes was spent with this patient evaluating the chart, evaluating her problem, formulating a treatment plan and documenting the visit and treatment plan. 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
--- OUTSIDE RECORDS SUMMARY | 2024-10-29 10:41 | XMS_ITS | Data Portability ---
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 Plan of Treatment Reminders Order Date Submit Date Provider Last Modified By Organization Details Last Modified Time Details Appointments None recorded. Lab None recorded. Referral None recorded. Procedures None recorded. Surgeries None recorded. Imaging None recorded. Medication Orders oxycodone 5 mg tablet 2023 024 [facility] [place] , [address] [place] [address], [address], 4 21:23:28 oxycodone 5 mg tablet 2023 024 [facility] [place] , [address] [place] [address], [address], 4 13:28:18 Patient TargetsNo targets recorded. Patient InstructionsNo instructions recorded. Reason for Referral None Reported. Problems Name Problem SNOMED Code Status Onset Date Resolution Date Notes Provider Name and Address Organization Details Recorded Time Type 1 diabetes mellitus 19538964 Active 2023 Dori Pena NP [address] 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, [address], [place], [address], [facility] [employer] 4 15:49:21 Hypertensive disorder 59674225 Active 2023 Dori Pena NP [address], [address], [place], [address], [facility] 4 15:49:57 Gastroesophage al reflux disease 371939563 Active 2023 Dori Pena NP [address], [address], [place], [address], [facility] 4 15:51:24 Rheumatoid arthritis 90188366 Active 2023 Dori Pena NP [address], [address], [place], [address], [facility] 4 15:51:29 Mixed anxiety and depressive disorder 478554063 Active 2023 Dori Pena NP [address], [address], [place], [address], [facility] 4 15:51:45 Obesity 382029667 Active 2023 Dori Pena NP [address], [address], [place], [address], [facility] 4 15:51:51 Closed flail chest 337218841 Active 2023 Dori Pena NP [address], [address], [place], [address], [facility] 4 15:52:35 Asthenia 83087411 Active 2023 Dori Pena NP [address], [address], [place], [address], [facility] 4 15:52:46 Irritable bowel syndrome 39525873 Active 2023 Dori Pena NP [address], [address], [place], [address], [facility] 4 16:06:46 Recurrent falls 981536245 Active 2023 Dori Pena NP [address], [address], [place], [address], [facility] 4 16:38:03 Problem Notes None recorded. Procedures Surgical History Date Name Laterality Status Provider Name and Address Organization Details Recorded Time bypass gastroenterostomy completed Dori Pena NP [address] [facility], [address], [place], [address], [facility] 09/17/2023 15:40:41 Laparoscopic cholecystectomy completed Dori Pena NP [address] [facility] [facility], [address], [place], [address], [facility] 09/17/2023 15:41:25 fixed suspension procedure of urinary bladder neck completed Dori Pena NP [address] [facility] [facility], [address], [place], [address], [facility] 09/17/2023 15:42:01 Appendectomy completed Dori Pena NP [address] [facility] [facility], [address], [place], [address], [facility] 09/17/2023 15:42:11 bilateral cataract surgery completed Dori Pena NP [address] [facility] [facility] [facility], [address], [place], [address], [facility] 09/17/2023 15:42:26 Imaging Results None recorded. Procedure Notes None recorded. Medical Equipment None Reported. Allergies Allergen ID Allergen Name Allergen Category Reaction Reaction Severity Criticality Documentation Date Start Date Code Code System Note Provider Name and Address Organization Details Recorded Time 42868 celecoxib medicatio n other Not available unabletoasse 09/17/2023 46546 7 RxNorm unkno wn Dori Pena NP [address] [facility], [address], [place], [address], [facility] 4 15:37:14 56606 lorazepam medicatio n other Not available unabletoasse 09/17/2023 6470 RxNorm unkno wn Dori Pena NP [address] [facility] [facility], [address], [place], [address], [facility] 4 15:37:29 58982 tramadol medicatio n other Not available unabletoasse 09/17/2023 13764 RxNorm unkno wn Dori Pena NP [address] [facility] [facility], [address], [place], [address], [employer] [facility] 4 15:37:42 93028 zolpidem medicatio n other Not available unabletoasse 09/17/2023 74284 RxNorm unkno wn Dori Pena NP [address] [facility] [facility], [address], [place], [address], [facility] 4 15:37:56 Medications Name Sig Start Date [...] Address Organization Details Last Updated DateTime 4 32779.7 8 g 98 /min 18 /min 97.8 [degF] 94 % 94 % 150/77 mm[Hg] Dori Pena NP [address] [facility], [address], [place], [address], [facility] [facility] 4 10:49:41 Date Recorded Body weight Heart rate Respiratory rate Body temperature Oxygen saturation Oxygen saturation in Arterial blood by Pulse oximetry Systolic And Diastolic Provider Name and Address Organization Details Last Updated DateTime 4 88544.7 8 g 83 /min 18 /min 97 [degF] 98 % 98 % 148/74 mm[Hg] Dori Pena NP [address] [facility], [address], [place], [address], [facility] 4 13:29:12 Date Recorded Body weight Heart rate Respiratory rate Body temperature Oxygen saturation Oxygen saturation in Arterial blood by Pulse oximetry Systolic And Diastolic Provider Name and Address Organization Details Last Updated DateTime 4 70874.7 8 g 76 /min 18 /min 97.8 [degF] 97 % 97 % 128/78 mm[Hg] Dori Pena NP [address] [facility], [address], [place], [address], [facility] 4 12:05:35 Date Recorded Body weight Heart rate Respiratory rate Body temperature Oxygen saturation Oxygen saturation in Arterial blood by Pulse oximetry Systolic And Diastolic Provider Name and Address Organization Details Last Updated DateTime 4 49990 g 80 /min 18 /min 98 [degF] 95 % 95 % 111/60 mm[Hg] Dori Pena NP [address] [facility], [address], [place], [address], [facility] 4 11:40:36 Date Recorded Body weight Heart rate Respiratory rate Body temperature Oxygen saturation Oxygen saturation in Arterial blood by Pulse oximetry Systolic And Diastolic Provider Name and Address Organization Details Last Updated DateTime 4 97622 g 74 /min 18 /min 98.4 [degF] 95 % 95 % 124/68 mm[Hg] Dori Pena NP [address] [facility], [facility] [address], [place], [address], [facility] 4 13:12:09 Social History Question Answer Notes LastModified by [employer] Details LastModified Time Tobacco Smoking Status Never Smoker Dori Pena NP [address] [facility], [facility] [address], [place], [address], [facility] 09/17/2023 15:39:38 Do You Have An [...] Functional Status Question Answer Note LastModified by [email or web address] Details LastModified Time Do you use any [...] (RSV) vaccine, unspecified 4 completed Radha Jerman [facility] 09/19/2023 16:11:12 Tdap 4 completed [facility] 09/19/2023 16:11:26 Td(adult) unspecified formulation 3 completed [facility] 09/19/2023 16:11:43 Td(adult) unspecified formulation 3 completed [facility] 09/19/2023 16:11:51 Pneumococcal conjugate PCV 13 6 completed [facility] 09/19/2023 16:12:53 Pneumococcal conjugate PCV20, polysaccharide ENY228 conjugate, adjuvant, PF 4 completed [facility] 09/19/2023 16:13:07 pneumococcal polysaccharide PPV23 1 completed [facility] 09/19/2023 16:13:22 pneumococcal polysaccharide PPV23 4 completed [facility] 09/19/2023 16:13:31 influenza, unspecified formulation 2 completed [facility] 09/19/2023 16:13:47 influenza, unspecified formulation 3 completed [facility] 09/19/2023 16:13:55 MMR 8 completed [facility] 09/19/2023 16:14:21 SARS-COV-2 (COVID-19) vaccine, UNSPECIFIED 1 completed Radha Stoll [facility] 09/19/2023 16:15:58 SARS-COV-2 (COVID-19) vaccine, UNSPECIFIED 1 completed Radha Stoll [facility] 09/19/2023 16:16:13 SARS-COV-2 (COVID-19) vaccine, UNSPECIFIED 1 completed Radha Stoll [facility] 09/19/2023 16:16:27 SARS-COV-2 (COVID-19) vaccine, UNSPECIFIED 2 completed Radha Stoll [facility] 09/19/2023 16:17:15 SARS-COV-2 (COVID-19) vaccine, UNSPECIFIED 2 completed Radha [facility] 09/19/2023 16:21:38 zoster, unspecified formulation 5 completed Radha [facility] 09/19/2023 16:23:04 zoster, unspecified formulation 9 completed Radha [facility] 09/19/2023 16:23:18 zoster, unspecified formulation 9 completed [facility] 09/19/2023 16:25:18 Past Encounters Encounter ID Performer Location Encounter Start Date Encounter Closed Date Diagnosis/Indication Diagnosis SNOMED-CT Code Diagnosis ICD10 Code Diagnosis Note [id number] Dori Pena NP [address] [address] 09/17/2023 15:22:09 09/23/2023 14:50:24 Closed flail chest 470702293 S22.5XXD with multiple rib fractures and clavicular [...] If stable no further workup needed. 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 IBSlinzess 290 mcg q ammonitor Deficiency anemias 03310 3007 D53.9 folic acidvit [id number] Coronary arteriosclerosis 88366557 I25.10 hx of MIatorvast atin 20 mg po dailyclopi dogrel 75 mg po q amsee above htn medsmonito r Recurrent falls 31127509 2 R29.6 reports history of falls with civil engineer's aide at home to help her and balance issuesrepo rts more than 5 falls/year supportive caremonito r [id number] JESSICA HINDS, AAKASH [place] [address] [place] [address] 09/18/2023 13:29:08 09/23/2023 15:13:15 Closed flail chest 242547784 S22.5XXD with multiple rib fractures and clavicular [...] If stable no further workup needed. Asthenia 80991280 R53.1 with notable weakness due to injuryPT OT eval and treatsuppo rtive caremonito r Type 1 frank betes mellitus 12663855 E10.9 A1C 8.8%Contin eu:tresiba 30 unit sc qhsinsulin 2-14 SSI sc qidmonitor BS and adjust as needed Hypertensive disorder 38 238727 I10 amlodipine 10 mg po dailylosar zaragoza 100 mg po dailycoreg 6.25 mg bidmonitor bp/vitals 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 274188 E06.3 levothyrox ine 112 mcg dailymonit or tsh as needed Gastroesop hageal reflux disease 669340229 K21.9 esomeprazo le 40 mg o daily Deficiency anemias 02758 3007 D53.9 folic acidvit [id number] Obesity 621656257 E66.9 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 IBSlinzess 290 mcg q ammonitor Coronary arteriosclerosis 59525642 I25.10 hx of MIatorvast atin 20 mg po dailyclopi dogrel 75 mg po q amsee above htn medsmonito r Recurrent falls 28086178 2 R29.6 reports history of falls with civil engineer's aide at home to help her and balance issuesrepo rts more than 5 falls/year supportive caremonito r [id number] Dori Pena NP [address] [address] 09/22/2023 14:27:57 09/29/2023 19:16:34 Closed flail chest 177617427 S22.5XXD with multiple rib fractures and clavicular [...] If stable no further workup needed. Asthenia 84839271 R53.1 with notable weakness due to injuryPT OT eval and treatsuppo rtive caremonito r Type 1 frank betes mellitus 97542767 E10.9 BS 81-252 [id number] 8.8%contin ue:tresiba 30 unit sc qhsinsulin 2-14 SSI sc qidmonitor BS and adjust as needed Hypertensive disorder 38 868178 I10 improving lately, boderline highcontam lodipine 10 mg po dailylosar zaragoza 100 mg po dailycoreg 6.25 mg bidmonitor bp/vitals 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 387649 E06.3 contlevoth yroxine 112 mcg dailymonit or tsh as needed Gastroesop hageal reflux disease 527786802 K21.9 esomeprazo le 40 mg o daily Deficiency anemias 60341 3007 D53.9 folic acidvit i65cgyhqmd Obesity 617454356 E66.9 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 IBSlinzess 290 mcg q ammonitor Coronary arteriosclerosis 57898984 I25.10 hx of MIatorvast atin 20 mg po dailyclopi dogrel 75 mg po q amsee above htn medsmonito r Recurrent falls 15509007 2 R29.6 reports history of falls with civil engineer's aide at home to help her and balance issuesrepo rts more than 5 falls/year supportive caremonito r Acute cystitis 20134204 N30.00 reports dysuria and occassiona l incontinen ce latelyurin e culture returned showing > 100,000 klebsiella pneumo ssp and started on ceftriaxon e 1gram IM and cefpodoxim e 200 mg po bid x 7 days with probiotic by on provider over the weekend.mo nitor [id number] Jonel Alamo MD [address] [address] 09/23/2023 11:01:43 09/29/2023 19:25:59 Closed fracture of multiple left ribs 6540067018 9551282 S22.42XG see HPIleft rib fxs 2-6 with concern for flail chest , with clavicular fxeval by surgery with no interventi on indicatedm onitor respirator y statusutil ize incentive spirometer monitor for pain controlupd ate surgery with concerns Asthenia 26651288 R53.1 PT OT eval and treatmonit or need for increased support in community Type 1 frank betes mellitus 04664463 E10.9 tresiba 30 units qdSS insulinmon itor glucose and need to titrate Hypertensive disorder 38 859941 I10 norvasc 10 mg qdcoreg 6.25 mg bidlosarta n 100 mg qdcurrentl y elevatedmo nitor need for increased control 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 663828 E06.3 hx of added to PMHmaintai priscilla onsynthroi d 112 mcg qdmonitor tsh prn Gastroesop hageal reflux disease 025778487 K21.9 nexium 40 mg qd continuedm onitor for effect Obesity 551754968 E66.09 dietary eval in patient with baseline DM Mixed anxi ety and depressive disorder 218825636 F41.8 carrying dx requiring multiple medication swill continue out patient medication s includinga bility and ativanmoni tor moodpsych eval prn Rheumatoid arthritis 698 94563 M06.9 remains onenbrel 50 mg q friday Irritable bowel syndrome 90602331 K58.9 ? IBSlinzess 290 mcg q ammonitor Coronary arteriosclerosis 21736189 I25.10 hx of MIatorvast atin 20 mg po dailyclopi dogrel 75 mg po q amsee above htn medsmonito r Recurrent falls 44870915 2 R29.6 reports history of falls with civil engineer's aide at home to help her and balance issuesrepo rts more than 5 falls/year supportive caremonito r Solitary n odule of lung 397257454 R91.1 question right 4 mm upper lobe nodulecons ider repeat scan in 6-12 months Primary insomnia 2898947 F51.01 continue melatoninm onitor need to titrate Abnormal weight loss 267 539535 R63.4 weight dropped > 12 lbs in a few days from admitappea rs to be error in initial intake weightwill monitor Acute cystitis 71697946 N30.00 now on cefpodoxim e to complete coursemoni tor for recurrent disease [id number] Dori Pena NP [address] [address] 09/24/2023 09:21:20 09/29/2023 19:39:42 Closed fracture of multiple left ribs 6233118015 8402005 S22.42XG with multiple rib fractures and clavicular [...] in am off pmadjust as needed. Asthenia 45818904 R53.1 PT OT eval and treatmonit or need for increased support in community Type 1 frank betes mellitus 92322750 E10.9 BS controlled conttresib a 30 units qdSS insulinmon itor glucose and need to titrate Hypertensive disorder 38 604115 I10 stable on below regimennor vasc 10 mg qdcoreg 6.25 mg bidlosarta n 100 mg qdcurrentl y elevatedmo nitor need for increased control 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 753098 E06.3 hx of added to PMHmaintai priscilla onsynthroi d 112 mcg qdmonitor tsh prn Gastroesop hageal reflux disease 736654469 K21.9 nexium 40 mg qd continuedm onitor for effect Obesity 114631027 E66.09 dietary eval in patient with baseline DM Rheumatoid arthritis 698 19612 M06.9 remains onenbrel 50 mg q friday Irritable bowel syndrome 97593137 K58.9 ? IBSlinzess 290 mcg q ammonitor Coronary arteriosclerosis 41253533 I25.10 hx of MIatorvast atin 20 mg po dailyclopi dogrel 75 mg po q amsee above htn medsmonito r Recurrent falls 34156004 2 R29.6 reports history of falls with civil engineer's aide at home to help her and balance issuesrepo rts more than 5 falls/year supportive caremonito r Primary insomnia 3266376 F51.01 continueme latoninmon itor need to titrate Abnormal weight loss 267 283305 R63.4 weight dropped > 12 lbs in a few days from admitappea rs to be error in initial intake weight6/5 reweigh pt todaywill monitor Acute cystitis 48254904 N30.00 now on cefpodoxim e to complete courseaysm ptomaticmo nitor for recurrent disease [id number] Dori Pena NP [facility] [address] [address] 09/29/2023 10:39:23 10/03/2023 11:24:38 Closed fracture of multiple left ribs 2164513290 1192155 S22.42XG with multiple rib fractures and clavicular [...] to left shoulderad just as needed. Asthenia 72498243 R53.1 PT OT eval and treatmonit or need for increased support in community Type 1 frank betes mellitus 43250277 E10.9 BS controlled conttresib a 30 units qdSS insulinmon itor glucose and need to titrate Hypertensive disorder 38 252384 I10 stable on below regimen with slightly high bp likley related to pain, monitorcon tnorvasc 10 mg qdcoreg 6.25 mg bidlosarta n 100 mg qdcurrentl y elevatedmo nitor need for increased control 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 586040 E06.3 hx of added to PMHmaintai priscilla onsynthroi d 112 mcg qdmonitor tsh prn Gastroesop hageal reflux disease 217684357 K21.9 contnexium 40 mg qdmonitor for effect Obesity 740117992 E66.09 dietary evalbaseli ne DMweight today please Rheumatoid arthritis 698 21279 M06.9 remains onenbrel 50 mg q friday Irritable bowel syndrome 48675285 K58.9 ? IBSlinzess 290 mcg q ammonitor Coronary arteriosclerosis 47241776 I25.10 hx of MIatorvast atin 20 mg po dailyclopi dogrel 75 mg po q amsee above htn medsmonito r Recurrent falls 92223782 2 R29.6 reports history of falls with civil engineer's aide at home to help her and balance issuesrepo rts more than 5 falls/year supportive caremonito r Primary insomnia 9358680 F51.01 continueme latoninmon itor need to titrate Abnormal weight loss 267 273546 R63.4 weight dropped > 12 lbs in a few days from admitappea rs to be error in initial intake weight6/10 reweigh pt todaywill monitor Acute cystitis 77848441 N30.00 resolved cefpodoxim e to complete courseaysm ptomaticmo nitor for recurrent disease Mixed anxi ety and depressive disorder 037886980 F41.8 contaripip razole 20 mg dailyvenla faxine 150 mg po dailyprazo sin 6 mg po qhsmelaton in 3 mg po qhshydroxy zine 10 mg po q 8 hours prn anxiety6/1 0 renew clonazepam 0.5 mg po q 8 hours prn anxietymon itor [id number] [facility] [address] [place] [address] 10/02/2023 13:28:32 10/07/2023 10:08:18 Hypertensive disorder 96990580 I10 stable on below regimen as it comes down to 120s systolic post medication contnorvas c 10 mg qdcoreg 6.25 mg bidlosarta n 100 mg qdmonitor need for increased control Closed fra cture of multiple left ribs 1991420638 3486547 S22.42XG with left rib fxs 2-6 with [...] OT eval and txadjust as needed. Asthenia 46486850 R53.1 PT OT eval and treatmonit or need for increased support in community Type 1 frank betes mellitus 46703500 E10.9 BS controlled glucernaco nttresiba 30 units qdSS insulinmon itor glucose and need to titrate Gastroesop hageal reflux disease 681575734 K21.9 contnexium 40 mg qdmonitor for effect Rheumatoid arthritis 698 69873 M06.9 remains onenbrel 50 mg q friday Irritable bowel syndrome 46261109 K58.9 ? IBSlinzess 290 mcg q ammonitor Coronary arteriosclerosis 95021371 I25.10 hx of MIcoreg 6.25 mg po bidatorvas tatin 20 mg po dailyclopi dogrel 75 mg po q amsee above htn medsmonito r Recurrent falls 04577035 2 R29.6 reports history of falls with civil engineer's aide at home to help her and balance issuesrepo rts more than 5 falls/year supportive care and therapy here for balance, strengthen ing, gait, mobility, endurancem onitor Abnormal weight loss 267 354368 R63.4 weight dropped > 12 lbs in a few days from admitappea rs to be error in initial intake weight09/28 reweigh pt today10/01 reweight pt today, no weight since 09/21will monitor Mixed anxi ety and depressive disorder 840265594 F41.8 contaripip razole 20 mg dailyvenla faxine 150 mg po dailyprazo sin 6 mg po qhsmelaton in 3 mg po qhshydroxy zine 10 mg po q 8 hours prn anxiety09/19 0 renew clonazepam 0.5 mg po q 8 hours prn anxiety x 14 days10/01 cont as abovemonit or [id number] Dori Pena NP [facility] [address] 10/06/2023 12:02:36 10/09/2023 09:34:42 Closed fracture of multiple left ribs 8693339116 9048194 S22.42XG with left rib fxs 2-6 with [...] txadjust as needed. Abnormal weight loss 267 137560 R63.4 weight dropped > 12 lbs in a few days from admitappea rs to be error in initial intake weight10/04 160 lbs which is same as 09/22/23will monitor Hypertensive disorder 38 842268 I10 stable on below regimen as it comes down to 120s systolic post medication contnorvas c 10 mg qdcoreg 6.25 mg bidlosarta n 100 mg qdmonitor need for increased control Asthenia 02072285 R53.1 PT OT eval and treatmonit or need for increased support in community Type 1 frank betes mellitus 25431224 E10.9 pt having syrup and gingerale at [...] and need to titrate Rheumatoid arthritis 698 54893 M06.9 remains onenbrel 50 mg q friday Irritable bowel syndrome 31590225 K58.9 with constipati on today, states many days10/05 mon given today, will do supp if no bm by 4 pm10/05 start senna 8.6 mg po daily? IBSlinzess 290 mcg q ammonitor Coronary arteriosclerosis 24261336 I25.10 hx of MIcoreg 6.25 mg po bidatorvas tatin 20 mg po dailyclopi dogrel 75 mg po q amsee above htn medsmonito r Mixed anxi ety and depressive disorder 874875744 F41.8 contaripip razole 20 mg dailyvenla faxine 150 mg po dailyprazo sin 6 mg po qhsmelaton in 3 mg po qhshydroxy zine 10 mg po q 8 hours prn anxiety6/1 0 renew clonazepam 0.5 mg po q 8 hours prn anxiety x 14 days10/01 cont as above10/05 stable today with above planmonito r [id number] Dori Pena, [facility] [address] 10/08/2023 11:40:06 10/15/2023 15:50:32 Type 1 diabetes mellitus [id number] E10.9 pt having syrup and gingerale at [...] and need to titrate Irritable bowel syndrome 74006071 K58.9 with constipati on resolved with mom on 7 fri given today10/05 start senna 8.6 mg po daily? IBSlinzess 290 mcg q am10/07 having bm regularly nowmonitor Closed fra cture of multiple left ribs [id number] 8327555 S22.42XG with left rib fxs 2-6 with [...] txadjust as needed. Abnormal weight loss 267 477915 R63.4 weight dropped > 12 lbs in a few days from admitappea rs to be error in initial intake weight10/04 160 lbs which is same as 09/22/23, ? 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 contaripip razole 20 mg dailyvenla faxine 150 mg po dailyprazo sin 6 mg po qhsmelaton in 3 mg po qhshydroxy zine 10 mg po q 8 hours prn anxiety09/19 0 renew clonazepam 0.5 mg po q 8 hours prn anxiety x 14 days10/01 cont as above10/05 stable today with above plan10/07 stable today with above planmonito r Hyperkalemia 12654164 E8 7.5 k of 5.7 on give kayexalate 15 gm today10/08 bmp in ammonitor for additional e lyte abbormalit ies [id number] Dori Pena NP [facility] [place] [address] 10/09/2023 13:08:06 10/15/2023 16:27:22 Closed fracture of multiple left ribs [id number] 6900248 S22.42XG resolving with left rib fxs 2-6 [...] prnadjust as needed outpt with pcp Hyperkalemia 34070163 E8 7.5 k of 5.7 on give kayexalate 15 gm on 10/07monito r for additional e lyte abnormalit ies outpt with pcp Type 1 frank betes mellitus 85139111 E10.9 BS slightly high while at rehab with eating sugary foods/drin ksPlan: diet sodas and diet syrup and less sugary choicescon tglucernat resiba 30 units qdSS insulin with meals as per home schedmonit or glucose and need to titrate outpt with pcp outpt Irritable bowel syndrome 21083909 K58.9 with constipati on resolvedse nna 8.6 mg po daily (started at rehab)? IBSlinzess 290 mcg q ammonitor with pcp outpt Abnormal weight loss 267 594950 R63.4 weight dropped > 12 lbs in a few days from admitappea rs to be error in initial intake weight10/04 160 lbs which is same as 09/22/23, ? incorrect admit weight but seems stable nowmonitor oupt with pcp Hypertensive disorder 38 716603 I10 stable on below regimen as it comes down to 120s systolic post medication contnorvas c 10 mg qdcoreg 6.25 mg bidlosarta n 100 mg qdmonitor need for increased control outpt with pcp Asthenia 10341123 R53.1 PT OT eval and treat outpt prnmonitor need for increased support in community with pcp Rheumatoid arthritis 698 38168 M06.9 remains onenbrel 50 mg q fridaymoni tor outpt with pcp Coronary arteriosclerosis 22317413 I25.10 hx of MIcoreg 6.25 mg po bidatorvas tatin 20 mg po dailyclopi dogrel 75 mg po q amsee above htn medsmonito r outpt wtih pcp Mixed anxi ety and depressive disorder 359483176 F41.8 contaripip razole 20 mg dailyvenla faxine 150 mg po dailyprazo sin 6 mg po qhsmelaton in 3 mg po qhshydroxy zine 10 mg po q 8 hours prn anxietyclo nazepam 0.5 mg po q 8 hours prn anxietymon itor outpt with pcp Gastroesop hageal reflux disease 017075296 K21.9 contnexium 40 mg qdmonitor for effect outpt with pcp Recurrent falls 62298964 2 R29.6 reports history of falls with civil engineer's aide at home to help her and balance issuesrepo rts more than 5 falls/year supportive care and therapy here for balance, strengthen ing, gait, mobility, endurance outpt rpnmonitor outpt with pcp 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 177926 E06.3 hx of added to PMHmaintai priscilla onsynthroi d 112 mcg qdmonitor tsh prn with pcp Obesity 217501584 E66.09 dietary evalbaseli ne DMweight to be monitored with pcp outpt Primary insomnia 9705059 F51.01 continueme latoninmon itor need to titrate outpt Acute cystitis 32775989 N30.00 resolved cefpodoxim e to complete courseaysm ptomaticmo nitor for recurrent disease outpt with pcp Health Concerns Section Related Observation LastModified by Organization Detai ls LastModified Time None Recorded Concern Status LastModified by Organization Details LastModified Time None Recorded Advance Directives Directive N: Payers Insurance Date Sequence Insurance Name Policy Number Policy Patten Covered Member ID Patten Member ID Guarantor Name 10/15/2023 1 [facility] - DOS ON OR AFTER 2022 - MEDICARE ADVANTAGE [place] (MEDICARE REPLACEMENT/ADV ANTAGE - PPO) Brandie Luevano [id number] Brandie Luevano Notes Date Note Type Note [...] a cane usually Dori Pena NP [address] [facility], [address], [place], [address], [facility] [employer] 09/29/2023 11:09:33 10/02/2023 text/html Pt is seen [...] is sitting up in bed with her SK[employer] CLIPPER visiting. She has her sling in place [...] a cane usually Dori Pena NP [address] [facility], [address], [place], [address], [facility] [employer] 10/02/2023 13:48:50 10/06/2023 text/html Pt is seen for a n acute rounding visit. Brandie is working here at [facility] and is feeling good and more mobile lately with left sling in place. She continues with therapy and making gains. She was treated for a UTI when she first came to [facility] and denies any urinary symptoms. 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, [address], [place], [address], [facility] [employer] [facility] 10/06/2023 12:26:22 10/08/2023 text/html Pt is [...] in a sling for comfort. While at [facility]:She was treated for a UTI when she first came to [facility] and denies any urinary symptoms. 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, [address], [place], [place], [address], [facility] [employer] 10/08/2023 12:05:52 10/09/2023 text/html Pt is seen [...] in a sling for comfort. While at [facility]:She was treated for a UTI when she first came to [facility] and denies any urinary symptoms. 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, [address], [place], [address], [facility] 10/09/2023 16:50:56 OBGyn Episode No OBEpisode recorded.
--- OUTSIDE RECORDS SUMMARY | 2024-10-29 10:41 | XMS_ITS | Clinical Summary ---
Author Organization [address] [place] [address] Address [address] [place] [address] Phone Care Team Providers Care Marketing Area Manager Name Role Phone Pascual Darnell MD Primary Care Provi chio Allergies Active Allergy Reactions Criticality Noted Date Comments Clonazepam 09/02/2024 Medications No known medications Encounters Date Type Department Care Team Description 09/02/2024 10:30 AM EDT Consult Orthopedic Surgery [facility] [address] [facility] [address] [place] [address] Luciano Smith, DPM Dermatophytosis of [...] AM EDT Office Visit Orthopedic Surgery - [place] [address] [facility] [address] [place] [address] Luciano Smith, DPM [address] [facility] [address] [place] [address] Health Maintenance Due Date Last Done Comments [...] ID:[id number] Group ID:[id number] Type:Not on file Address: [place] [address] [address] [place] [address] Care Teams Marketing Area Manager Relationship Specialty Start Date End Date Pascual Darnell MD [address] [place] [address] [phone] PCP - General Internal Medicine 06/18/24
== END 2024-10-29 11:42 | disposition home or self-care (01) ==
PROVIDERS: PCP Internal Medicine; Visit Provider Orthopaedic Surgery
DX: M66.242 Spontaneous rupture of extensor tendons, left hand (principal)
CPT/HCPCS: 99215

== ENCOUNTER → 2024-10-29 10:10 | Outpatient (BNVA) | payer OTHER, SELFPAY | PROVIDERS: PCP Internal Medicine; Visit Provider Orthopaedic Surgery | DX: M66.242 Spontaneous rupture of extensor tendons, left hand (principal) | CPT/HCPCS: 99212 ==

== ENCOUNTER 2024-11-08 07:58 | Outpatient (AMB) | payer OTHER, SELFPAY ==
--- OUTSIDE RECORDS SUMMARY | 2024-11-08 08:01 | XMS_ITS | Encounter Summary ---
Author Organization [employer] Address [address] [facility] 7t [place] [address] Care Team Providers Care Mountain Or Glacier Guide Name Role Phone Pascual Daly MD Primary Care Provide r Fani Heck PharmD Unavailable [phone] Dasia Waters PharmD Unavailable [phone] Reason for Visit * Reason Comments Med Refill Encounter Details Date Type Department Care Team (Late st Contact Info) Description 03/27/2023 Refill [facility] [address] [place] [address] Titi Gray FNP Major depressive disorder with [...] Care Team (Late st Contact Info) Description 11/10/2024 9:00 AM EDT Office Visit [facility] [address] [place] [address] Christian Winchester DDS [address] [place] [address] 11/16/2024 11:15 AM EDT Office Visit [facility] [address] [place] [phone] Pascual Daly MD [address] [place] [address] 01/03/2025 10:00 AM EDT Medication Management [facility] [address] [place] [address] Dasia Waters, PharmD [address] [place] [address] 01/20/2025 10:30 AM EDT Clinical Support [facility] [address] [place] [address] Amanda Fernández, RN [address] [place] [address] 02/17/2025 10:00 AM EDT Office Visit [facility] [address] [place] [address] Gabriela Gaitan [address] [place] [address] documented as of this encounter Goals Goal [...] documented as of this encounter Care Teams Mountain Or Glacier Guide Relationship Specialty Start Date End Date Pascual Daly MD [address] [place] [phone] PCP - General Internal Medicine 02/22/14 Fani Heck, PharmD [address] [place] [address] Pharmacist Internal Medicine 12/16/22 08/15/24 Dasia Waters, KristiD [address] [place] [phone] Pharmacist Internal Medicine 08/16/24 documented as of this encounter
--- OUTSIDE RECORDS SUMMARY | 2024-11-08 08:01 | XMS_ITS | Clinical Summary ---
Author Organization [address] [place] [address] Address [address] [place] [address] Phone Care Team Providers Care Aircraft Electrician Name Role Phone Pascual Darnell MD Primary Care Provi chio Allergies Active Allergy Reactions Criticality Noted Date Comments Clonazepam 09/02/2024 Medications No known medications Encounters Date Type Department Care Team Description 09/02/2024 10:30 AM EDT Consult Orthopedic Surgery [facility] [address] [facility] [address] [place] [address] Luciano Smith, DPM Dermatophytosis of [...] AM EDT Office Visit Orthopedic Surgery - [place] [address] [facility] [address] [place] [id number] Luciano Smith, DPM [address] [facility] [address] [place] [address] Health Maintenance Due Date Last Done Comments [...] 2023 04/18/2022, 09/04/2021, 03/05/2021, Additional history exists Depression Screening 04/21/2024 Diabetes: Annual Urine Albumin-Creatinine Ratio (uACR) 06/18/2024 Influenza Vaccine (#1) 2024 , 03/11/2023, 01/15/2023, Additional history exists Diabetes: Blood Sugar Control Test (HGBA1C) 02/11/2025 [...] ID:[id number] Group ID:SCO Type:Not on file Address: [place] [address] [address] [place] [address] Care Teams Aircraft Electrician Relationship Specialty Start Date End Date Pascual Darnell MD [address] [place] [phone] PCP - General Internal Medicine 06/18/24
--- OUTSIDE RECORDS SUMMARY | 2024-11-08 08:01 | XMS_ITS | Data Portability ---
Author Organization [facility] [employer] [facility], Main Office Address [address] [place] [address] Care Team Providers Care Electronics Tester Name Role Phone MARII MASSEY Primary Care Provider [facility] - 2ND FLOOR OTHER Assessment No assessment recorded. Plan of Treatment Reminders Order Date Submit Date Provider Last Modified By Organization Details Last Modified Time Details Appointments None recorded. Lab None recorded. Referral None recorded. Procedures None recorded. Surgeries None recorded. Imaging None recorded. Medication Orders oxycodone 5 mg tablet 2023 024 [facility] , [address] [place] [address], [address], 4 21:23:28 oxycodone 5 mg tablet 2023 024 [facility] , [address] [place] [address], [address], 4 13:28:18 Patient TargetsNo targets recorded. Patient InstructionsNo instructions recorded. Reason for Referral None Reported. 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 Dori Pena NP [address], [address], [place], [address], [facility] [employer] 4 15:49:21 Hypertensive disorder 96912235 Active 2023 Dori Pena NP [address], [address], [place], [address], [facility] 4 15:49:57 Gastroesophage al reflux disease 007800817 Active 2023 Dori Pena NP [address], [address], [place], [address], [employer] [facility] 4 15:51:24 Rheumatoid arthritis 47882909 Active 2023 Dori Pena NP [address], [address], [place], [address], [employer] [facility] 4 15:51:29 Mixed anxiety and depressive disorder 674241240 Active 2023 Dori Pena NP [address], [address], [place], [address], [facility] 4 15:51:45 Obesity 793624831 Active 2023 Dori Pena NP [address], [address], [place], [address], [facility] 4 15:51:51 Closed flail chest 127657709 Active 2023 Dori Pena NP [address], [address], [place], [address], [facility] 4 15:52:35 Asthenia 36404612 Active 2023 Dori Pena NP [address], [address], [place], [address], [facility] 4 15:52:46 Irritable bowel syndrome 90625192 Active 2023 Dori Pena NP [address], [address], [place], [address], [facility] 4 16:06:46 Recurrent falls 713041295 Active 2023 Dori Pena NP [address], [address], [place], [address], [facility] 4 16:38:03 Problem Notes None recorded. Procedures Surgical History Date Name Laterality Status Provider Name and Address Organization Details Recorded Time bypass gastroenterostomy completed Dori Pena NP [address], [address], [place], [address], [facility] 09/17/2023 15:40:41 Laparoscopic cholecystectomy completed Dori Pena NP [address], [address], [place], [address], [facility] 09/17/2023 15:41:25 fixed suspension procedure of urinary bladder neck completed Dori Pena NP [address], [address], [place], [address], [facility] 09/17/2023 15:42:01 Appendectomy completed Dori Pena NP [address], [address], [place], [address], [facility] 09/17/2023 15:42:11 bilateral cataract surgery completed Dori Pena NP [address], [address], [place], [address], [facility] 09/17/2023 15:42:26 Imaging Results None recorded. Procedure Notes None recorded. Medical Equipment None Reported. Allergies Allergen ID Allergen Name Allergen Category Reaction Reaction Severity Criticality Documentation Date Start Date Code Code System Note Provider Name and Address Organization Details Recorded Time 92773 celecoxib medicatio n other Not available unabletoasse 09/17/2023 58657 7 RxNorm unkno wn Dori Pena NP [address], [address], [place], [address], [facility] 4 15:37:14 57481 lorazepam medicatio n other Not available unabletoasse 09/17/2023 6470 RxNorm unkno wn Dori Pena NP [address], [address], [place], [address], [facility] 4 15:37:29 94388 tramadol medicatio n other Not available unabletoasse 09/17/2023 65790 RxNorm unkno wn Dori Pena NP [address], [address], [place], [address], [facility] 4 15:37:42 93189 zolpidem medicatio n other Not available unabletoasse 09/17/2023 54697 RxNorm unkno wn Dori Pena NP [address], [address], [place], [address], [facility] 4 15:37:56 Medications Name Sig Start Date [...] Address Organization Details Last Updated DateTime 4 45552.7 8 g 98 /min 18 /min 97.8 [degF] 94 % 94 % 150/77 mm[Hg] Dori Pena NP [address], [address], [place], [address], [facility] 4 10:49:41 Date Recorded Body weight Heart rate Respiratory rate Body temperature Oxygen saturation Oxygen saturation in Arterial blood by Pulse oximetry Systolic And Diastolic Provider Name and Address Organization Details Last Updated DateTime 4 25030.7 8 g 83 /min 18 /min 97 [degF] 98 % 98 % 148/74 mm[Hg] Dori Pena NP [address], [address], [place], [address], [facility] 4 13:29:12 Date Recorded Body weight Heart rate Respiratory rate Body temperature Oxygen saturation Oxygen saturation in Arterial blood by Pulse oximetry Systolic And Diastolic Provider Name and Address Organization Details Last Updated DateTime 4 14582.7 8 g 76 /min 18 /min 97.8 [degF] 97 % 97 % 128/78 mm[Hg] Dori Pena NP [address], [address], [place], [address], [facility] 4 12:05:35 Date Recorded Body weight Heart rate Respiratory rate Body temperature Oxygen saturation Oxygen saturation in Arterial blood by Pulse oximetry Systolic And Diastolic Provider Name and Address Organization Details Last Updated DateTime 4 84477 g 80 /min 18 /min 98 [degF] 95 % 95 % 111/60 mm[Hg] Dori Pena NP [address], [address], [place], [address], [facility] 4 11:40:36 Date Recorded Body weight Heart rate Respiratory rate Body temperature Oxygen saturation Oxygen saturation in Arterial blood by Pulse oximetry Systolic And Diastolic Provider Name and Address Organization Details Last Updated DateTime 4 63572 g 74 /min 18 /min 98.4 [degF] 95 % 95 % 124/68 mm[Hg] Dori Pena NP [address] [facility] [address], [place], [address], [facility] 4 13:12:09 Social History Question Answer Notes LastModified by [employer] Details LastModified Time Tobacco Smoking Status Never Smoker Dori Pena NP [address], [facility] [address], [place], [address], [facility] 09/17/2023 15:39:38 Do You Have An [...] Functional Status Question Answer Note LastModified by [employer] Details LastModified Time Do you use any [...] (RSV) vaccine, unspecified 4 completed Radha Jerman [facility] 09/19/2023 16:11:12 Tdap 4 completed [facility] 09/19/2023 16:11:26 Td(adult) unspecified formulation 3 completed [facility] 09/19/2023 16:11:43 Td(adult) unspecified formulation 3 completed [facility] 09/19/2023 16:11:51 Pneumococcal conjugate PCV 13 6 completed [facility] 09/19/2023 16:12:53 Pneumococcal conjugate PCV20, polysaccharide [id number] conjugate, adjuvant, PF 4 completed [facility] 09/19/2023 16:13:07 pneumococcal polysaccharide PPV23 1 completed [facility] 09/19/2023 16:13:22 pneumococcal polysaccharide PPV23 4 completed [facility] 09/19/2023 16:13:31 influenza, unspecified formulation 2 completed [facility] 09/19/2023 16:13:47 influenza, unspecified formulation 3 completed [facility] 09/19/2023 16:13:55 MMR 8 completed [facility] 09/19/2023 16:14:21 SARS-COV-2 (COVID-19) vaccine, UNSPECIFIED 1 completed Radha Stoll [facility] 09/19/2023 16:15:58 SARS-COV-2 (COVID-19) vaccine, UNSPECIFIED 1 completed Radha Stoll [facility] 09/19/2023 16:16:13 SARS-COV-2 (COVID-19) vaccine, UNSPECIFIED 1 completed Radha Stoll [facility] 09/19/2023 16:16:27 SARS-COV-2 (COVID-19) vaccine, UNSPECIFIED 2 completed Radha Stoll [facility] 09/19/2023 16:17:15 SARS-COV-2 (COVID-19) vaccine, UNSPECIFIED 2 completed Radha [facility] 09/19/2023 16:21:38 zoster, unspecified formulation 5 completed Radha [facility] 09/19/2023 16:23:04 zoster, unspecified formulation 9 completed Radha [facility] 09/19/2023 16:23:18 zoster, unspecified formulation 9 completed [facility] 09/19/2023 16:25:18 Past Encounters Encounter ID Performer Location Encounter Start Date Encounter Closed Date Diagnosis/Indication Diagnosis SNOMED-CT Code Diagnosis ICD10 Code Diagnosis Note [id number] Dori Pena NP [address] [address] 09/17/2023 15:22:09 09/23/2023 14:50:24 Closed flail chest 603092599 S22.5XXD with multiple rib fractures and clavicular [...] If stable no further workup needed. 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 3007 D53.9 folic acidvit [id number] Coronary arteriosclerosis 66037554 I25.10 hx of MIatorvast atin 20 mg po dailyclopi dogrel 75 mg po q amsee above htn medsmonito r Recurrent falls 95496895 2 R29.6 reports history of falls with heating and 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 home to help her and balance issuesrepo rts more than 5 falls/year supportive caremonito r [id number] JESSICA HINDS, AAKASH [place] [address] [place] [address] 09/18/2023 13:29:08 09/23/2023 15:13:15 Closed flail chest 939479123 S22.5XXD with multiple rib fractures and clavicular [...] If stable no further workup needed. Asthenia 08943016 R53.1 with notable weakness due to injuryPT OT eval and treatsuppo rtive caremonito r Type 1 frank betes mellitus 08371810 E10.9 A1C 8.8%Contin eu:tresiba 30 unit sc qhsinsulin 2-14 SSI sc qidmonitor BS and adjust as needed Hypertensive disorder 38 435315 I10 amlodipine 10 mg po dailylosar zaragoza 100 mg po dailycoreg 6.25 mg bidmonitor bp/vitals 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 657366 E06.3 levothyrox ine 112 mcg dailymonit or tsh as needed Gastroesop hageal reflux disease 316350410 K21.9 esomeprazo le 40 mg o daily Deficiency anemias 54221 3007 D53.9 folic acidvit [id number] Obesity 592866470 E66.9 senior director of [employer] solutions to consultsup portive careportio n controlmon itor weight Mixed anxi ety and depressive disorder 260772806 F41.8 aripiprazo le 20 mg dailyvenla faxine 150 mg po dailyprazo sin 6 mg po qhsmelaton in 3 mg po qhshydroxy zine 10 mg po q 8 hours prn anxietyclo nazepam 0.5 mg po q 8 hours prn anxietymon itor Rheumatoid arthritis 698 15211 M06.9 enbrel 50 mg sc q 7dayscalci um citrate 400 mg po bidmonitor for reliefsee pain management above with flail chest Irritable bowel syndrome 37709756 K58.9 ? IBSlinzess 290 mcg q ammonitor Coronary arteriosclerosis 52387300 I25.10 hx of MIatorvast atin 20 mg po dailyclopi dogrel 75 mg po q amsee above htn medsmonito r Recurrent falls 21907512 2 R29.6 reports history of falls with heating and 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 home to help her and balance issuesrepo rts more than 5 falls/year supportive caremonito r [id number] Dori Pena NP [address] [address] 09/22/2023 14:27:57 09/29/2023 19:16:34 Closed flail chest 436456757 S22.5XXD with multiple rib fractures and clavicular [...] If stable no further workup needed. Asthenia 63478655 R53.1 with notable weakness due to injuryPT OT eval and treatsuppo rtive caremonito r Type 1 frank betes mellitus 45662369 E10.9 BS 81-252 [id number] 8.8%contin ue:tresiba 30 unit sc qhsinsulin 2-14 SSI sc qidmonitor BS and adjust as needed Hypertensive disorder 38 124711 I10 improving lately, boderline highcontam lodipine 10 mg po dailylosar zaragoza 100 mg po dailycoreg 6.25 mg bidmonitor bp/vitals 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 521799 E06.3 contlevoth yroxine 112 mcg dailymonit or tsh as needed Gastroesop hageal reflux disease 909242194 K21.9 esomeprazo le 40 mg o daily Deficiency anemias 40212 3007 D53.9 folic acidvit [id number] Obesity 422638866 E66.9 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 IBSlinzess 290 mcg q ammonitor Coronary arteriosclerosis 09111425 I25.10 hx of MIatorvast atin 20 mg po dailyclopi dogrel 75 mg po q amsee above htn medsmonito r Recurrent falls 38792149 2 R29.6 reports history of falls with heating and 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 home to help her and balance issuesrepo rts more than 5 falls/year supportive caremonito r Acute cystitis 82652189 N30.00 reports dysuria and occassiona l incontinen ce latelyurin e culture returned showing > 100,000 klebsiella pneumo ssp and started on ceftriaxon e 1gram IM and cefpodoxim e 200 mg po bid x 7 days with probiotic by on provider over the weekend.mo nitor [id number] Jonel Alamo MD [facility] [address] 09/23/2023 11:01:43 09/29/2023 19:25:59 Closed fracture of multiple left ribs 3133056679 7274649 S22.42XG see HPIleft rib fxs 2-6 with concern for flail chest , with clavicular fxeval by surgery with no interventi on indicatedm onitor respirator y statusutil ize incentive spirometer monitor for pain controlupd ate surgery with concerns Asthenia 05376107 R53.1 PT OT eval and treatmonit or need for increased support in community Type 1 frank betes mellitus 64038599 E10.9 tresiba 30 units qdSS insulinmon itor glucose and need to titrate Hypertensive disorder 38 702250 I10 norvasc 10 mg qdcoreg 6.25 mg bidlosarta n 100 mg qdcurrentl y elevatedmo nitor need for increased control 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 557796 E06.3 hx of added to PMHmaintai priscilla onsynthroi d 112 mcg qdmonitor tsh prn Gastroesop hageal reflux disease 769302084 K21.9 nexium 40 mg qd continuedm onitor for effect Obesity 134363359 E66.09 dietary eval in patient with baseline DM Mixed anxi ety and depressive disorder 962960269 F41.8 carrying dx requiring multiple medication swill continue out patient medication s includinga bility and ativanmoni tor moodpsych eval prn Rheumatoid arthritis 698 82937 M06.9 remains onenbrel 50 mg q friday Irritable bowel syndrome 01134091 K58.9 ? IBSlinzess 290 mcg q ammonitor Coronary arteriosclerosis 28905357 I25.10 hx of MIatorvast atin 20 mg po dailyclopi dogrel 75 mg po q amsee above htn medsmonito r Recurrent falls 91524853 2 R29.6 reports history of falls with heating and 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 home to help her and balance issuesrepo rts more than 5 falls/year supportive caremonito r Solitary n odule of lung 678157491 R91.1 question right 4 mm upper lobe nodulecons ider repeat scan in 6-12 months Primary insomnia 8117160 F51.01 continue melatoninm onitor need to titrate Abnormal weight loss 267 485825 R63.4 weight dropped > 12 lbs in a few days from admitappea rs to be error in initial intake weightwill monitor Acute cystitis 33335260 N30.00 now on cefpodoxim e to complete coursemoni tor for recurrent disease [id number] Dori Pena NP [address] [address] 09/24/2023 09:21:20 09/29/2023 19:39:42 Closed fracture of multiple left ribs 7275577648 1868932 S22.42XG with multiple rib fractures and clavicular [...] in am off pmadjust as needed. Asthenia 38282678 R53.1 PT OT eval and treatmonit or need for increased support in community Type 1 frank betes mellitus 21883957 E10.9 BS controlled conttresib a 30 units qdSS insulinmon itor glucose and need to titrate Hypertensive disorder 38 783734 I10 stable on below regimennor vasc 10 mg qdcoreg 6.25 mg bidlosarta n 100 mg qdcurrentl y elevatedmo nitor need for increased control 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 664790 E06.3 hx of added to PMHmaintai priscilla onsynthroi d 112 mcg qdmonitor tsh prn Gastroesop hageal reflux disease 331871531 K21.9 nexium 40 mg qd continuedm onitor for effect Obesity 372939755 E66.09 dietary eval in patient with baseline DM Rheumatoid arthritis 698 81416 M06.9 remains onenbrel 50 mg q friday Irritable bowel syndrome 35165596 K58.9 ? IBSlinzess 290 mcg q ammonitor Coronary arteriosclerosis 05811814 I25.10 hx of MIatorvast atin 20 mg po dailyclopi dogrel 75 mg po q amsee above htn medsmonito r Recurrent falls 94585064 2 R29.6 reports history of falls with heating and 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 home to help her and balance issuesrepo rts more than 5 falls/year supportive caremonito r Primary insomnia 6948227 F51.01 continueme latoninmon itor need to titrate Abnormal weight loss 267 529891 R63.4 weight dropped > 12 lbs in a few days from admitappea rs to be error in initial intake weight6/5 reweigh pt todaywill monitor Acute cystitis 97084695 N30.00 now on cefpodoxim e to complete courseaysm ptomaticmo nitor for recurrent disease [id number] Dori Pena NP [facility] [address] [address] 09/29/2023 10:39:23 10/03/2023 11:24:38 Closed fracture of multiple left ribs 4730651976 5381838 S22.42XG with multiple rib fractures and clavicular [...] to left shoulderad just as needed. Asthenia 67322427 R53.1 PT OT eval and treatmonit or need for increased support in community Type 1 frank betes mellitus 09728221 E10.9 BS controlled conttresib a 30 units qdSS insulinmon itor glucose and need to titrate Hypertensive disorder 38 441048 I10 stable on below regimen with slightly high bp likley related to pain, monitorcon tnorvasc 10 mg qdcoreg 6.25 mg bidlosarta n 100 mg qdcurrentl y elevatedmo nitor need for increased control 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 084352 E06.3 hx of added to PMHmaintai priscilla onsynthroi d 112 mcg qdmonitor tsh prn Gastroesop hageal reflux disease 758240344 K21.9 contnexium 40 mg qdmonitor for effect Obesity 286085855 E66.09 dietary evalbaseli ne DMweight today please Rheumatoid arthritis 698 10584 M06.9 remains onenbrel 50 mg q friday Irritable bowel syndrome 03165198 K58.9 ? IBSlinzess 290 mcg q ammonitor Coronary arteriosclerosis 02233549 I25.10 hx of MIatorvast atin 20 mg po dailyclopi dogrel 75 mg po q amsee above htn medsmonito r Recurrent falls 03601173 2 R29.6 reports history of falls with heating and 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 home to help her and balance issuesrepo rts more than 5 falls/year supportive caremonito r Primary insomnia 2915698 F51.01 continueme latoninmon itor need to titrate Abnormal weight loss 267 652678 R63.4 weight dropped > 12 lbs in a few days from admitappea rs to be error in initial intake weight6/10 reweigh pt todaywill monitor Acute cystitis 46074695 N30.00 resolved cefpodoxim e to complete courseaysm ptomaticmo nitor for recurrent disease Mixed anxi ety and depressive disorder 439869532 F41.8 contaripip razole 20 mg dailyvenla faxine 150 mg po dailyprazo sin 6 mg po qhsmelaton in 3 mg po qhshydroxy zine 10 mg po q 8 hours prn anxiety6/1 0 renew clonazepam 0.5 mg po q 8 hours prn anxietymon itor [id number] [facility] [address] [place] [address] 10/02/2023 13:28:32 10/07/2023 10:08:18 Hypertensive disorder 29855359 I10 stable on below regimen as it comes down to 120s systolic post medication contnorvas c 10 mg qdcoreg 6.25 mg bidlosarta n 100 mg qdmonitor need for increased control Closed fra cture of multiple left ribs 7130455021 8065183 S22.42XG with left rib fxs 2-6 with [...] OT eval and txadjust as needed. Asthenia 30782909 R53.1 PT OT eval and treatmonit or need for increased support in community Type 1 frank betes mellitus 61539750 E10.9 BS controlled glucernaco nttresiba 30 units qdSS insulinmon itor glucose and need to titrate Gastroesop hageal reflux disease 265341200 K21.9 contnexium 40 mg qdmonitor for effect Rheumatoid arthritis 698 55696 M06.9 remains onenbrel 50 mg q friday Irritable bowel syndrome 95715675 K58.9 ? IBSlinzess 290 mcg q ammonitor Coronary arteriosclerosis 27334594 I25.10 hx of MIcoreg 6.25 mg po bidatorvas tatin 20 mg po dailyclopi dogrel 75 mg po q amsee above htn medsmonito r Recurrent falls 72633618 2 R29.6 reports history of falls with heating and 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 home to help her and balance issuesrepo rts more than 5 falls/year supportive care and therapy here for balance, strengthen ing, gait, mobility, endurancem onitor Abnormal weight loss 267 502313 R63.4 weight dropped > 12 lbs in a few days from admitappea rs to be error in initial intake weight09/28 reweigh pt today10/01 reweight pt today, no weight since 09/21will monitor Mixed anxi ety and depressive disorder 072114426 F41.8 contaripip razole 20 mg dailyvenla faxine 150 mg po dailyprazo sin 6 mg po qhsmelaton in 3 mg po qhshydroxy zine 10 mg po q 8 hours prn anxiety09/19 0 renew clonazepam 0.5 mg po q 8 hours prn anxiety x 14 days10/01 cont as abovemonit or [id number] Dori Pena NP [facility] [address] 10/06/2023 12:02:36 10/09/2023 09:34:42 Closed fracture of multiple left ribs 5433157563 1189321 S22.42XG with left rib fxs 2-6 with [...] txadjust as needed. Abnormal weight loss 267 972196 R63.4 weight dropped > 12 lbs in a few days from admitappea rs to be error in initial intake weight10/04 160 lbs which is same as 09/22/23will monitor Hypertensive disorder 38 784559 I10 stable on below regimen as it comes down to 120s systolic post medication contnorvas c 10 mg qdcoreg 6.25 mg bidlosarta n 100 mg qdmonitor need for increased control Asthenia 03166199 R53.1 PT OT eval and treatmonit or need for increased support in community Type 1 frank betes mellitus 49728842 E10.9 pt having syrup and gingerale at [...] and need to titrate Rheumatoid arthritis 698 58001 M06.9 remains onenbrel 50 mg q friday Irritable bowel syndrome 15500663 K58.9 with constipati on today, states many days10/05 mon given today, will do supp if no bm by 4 pm10/05 start senna 8.6 mg po daily? IBSlinzess 290 mcg q ammonitor Coronary arteriosclerosis [id number] I25.10 hx of MIcoreg 6.25 mg po bidatorvas tatin 20 mg po dailyclopi dogrel 75 mg po q amsee above htn medsmonito r Mixed anxi ety and depressive disorder [id number] F41.8 contaripip razole 20 mg dailyvenla faxine 150 mg po dailyprazo sin 6 mg po qhsmelaton in 3 mg po qhshydroxy zine 10 mg po q 8 hours prn anxiety6/1 0 renew clonazepam 0.5 mg po q 8 hours prn anxiety x 14 days10/01 cont as above10/05 stable today with above planmonito r [id number] Dori Pena, [facility] [address] 10/08/2023 11:40:06 10/15/2023 15:50:32 Type 1 diabetes mellitus 15181682 E10.9 pt having syrup and gingerale at [...] and need to titrate Irritable bowel syndrome 80555558 K58.9 with constipati on resolved with mom on 7 fri given today10/05 start senna 8.6 mg po daily? IBSlinzess 290 mcg q am10/07 having bm regularly nowmonitor Closed fra cture of multiple left ribs [id number] S22.42XG with left rib fxs 2-6 with [...] txadjust as needed. Abnormal weight loss 267 037606 R63.4 weight dropped > 12 lbs in a few days from admitappea rs to be error in initial intake weight10/04 160 lbs which is same as 09/22/23, ? incorrect admit weight but seems stable nowksll monitor Hypertensive disorder 38 367363 I10 stable on below regimen as it comes down to 120s systolic post medication contnorvas c 10 mg qdcoreg 6.25 mg bidlosarta n 100 mg qdmonitor need for increased control Asthenia 99991242 R53.1 PT OT eval and treatmonit or need for increased support in community Rheumatoid arthritis 698 30690 M06.9 remains onenbrel 50 mg q friday Coronary arteriosclerosis 71068500 I25.10 hx of MIcoreg 6.25 mg po bidatorvas tatin 20 mg po dailyclopi dogrel 75 mg po q amsee above htn medsmonito r Mixed anxi ety and depressive disorder [id number] F41.8 contaripip razole 20 mg dailyvenla faxine 150 mg po dailyprazo sin 6 mg po qhsmelaton in 3 mg po qhshydroxy zine 10 mg po q 8 hours prn anxiety09/19 0 renew clonazepam 0.5 mg po q 8 hours prn anxiety x 14 days10/01 cont as above10/05 stable today with above plan10/07 stable today with above planmonito r Hyperkalemia 51075552 E8 7.5 k of 5.7 on give kayexalate 15 gm today10/08 bmp in ammonitor for additional e lyte abbormalit ies [id number] Dori Pena NP [facility] [place] [address] 10/09/2023 13:08:06 10/15/2023 16:27:22 Closed fracture of multiple left ribs [id number] S22.42XG resolving with left rib fxs 2-6 [...] prnadjust as needed outpt with pcp Hyperkalemia 99168786 E8 7.5 k of 5.7 on give kayexalate 15 gm on 10/07monito r for additional e lyte abnormalit ies outpt with pcp Type 1 frank betes mellitus 21731928 E10.9 BS slightly high while at rehab with eating sugary foods/drin ksPlan: diet sodas and diet syrup and less sugary choicescon tglucernat resiba 30 units qdSS insulin with meals as per home schedmonit or glucose and need to titrate outpt with pcp outpt Irritable bowel syndrome 98043822 K58.9 with constipati on resolvedse nna 8.6 mg po daily (started at rehab)? IBSlinzess 290 mcg q ammonitor with pcp outpt Abnormal weight loss 267 503048 R63.4 weight dropped > 12 lbs in a few days from admitappea rs to be error in initial intake weight10/04 160 lbs which is same as 09/22/23, ? incorrect admit weight but seems stable nowmonitor oupt with pcp Hypertensive disorder 38 902661 I10 stable on below regimen as it comes down to 120s systolic post medication contnorvas c 10 mg qdcoreg 6.25 mg bidlosarta n 100 mg qdmonitor need for increased control outpt with pcp Asthenia 92117083 R53.1 PT OT eval and treat outpt prnmonitor need for increased support in community with pcp Rheumatoid arthritis 698 62956 M06.9 remains onenbrel 50 mg q fridaymoni tor outpt with pcp Coronary arteriosclerosis 36983413 I25.10 hx of MIcoreg 6.25 mg po bidatorvas tatin 20 mg po dailyclopi dogrel 75 mg po q amsee above htn medsmonito r outpt wtih pcp Mixed anxi ety and depressive disorder 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 F41.8 contaripip razole 20 mg dailyvenla faxine 150 mg po dailyprazo sin 6 mg po qhsmelaton in 3 mg po qhshydroxy zine 10 mg po q 8 hours prn anxietyclo nazepam 0.5 mg po q 8 hours prn anxietymon itor outpt with pcp Gastroesop hageal reflux disease 817131788 K21.9 contnexium 40 mg qdmonitor for effect outpt with pcp Recurrent falls 99117580 2 R29.6 reports history of falls with 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 and 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 home to help her and balance issuesrepo rts more than 5 falls/year supportive care and therapy here for balance, strengthen ing, gait, mobility, endurance outpt rpnmonitor outpt with pcp 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 hx of added to PMHmaintai priscilla onsynthroi d 112 mcg qdmonitor tsh prn with pcp Obesity 633919742 E66.09 dietary evalbaseli ne DMweight to be monitored with pcp outpt Primary insomnia 8212765 F51.01 continueme latoninmon itor need to titrate outpt Acute cystitis 35970999 N30.00 resolved cefpodoxim e to complete courseaysm ptomaticmo nitor for recurrent disease outpt with pcp Health Concerns Section Related Observation LastModified by Organization Detai ls LastModified Time None Recorded Concern Status LastModified by Organization Details LastModified Time None Recorded Advance Directives Directive N: Payers Insurance Date Sequence Insurance Name Policy Number Policy Patten Covered Member ID Patten Member ID Guarantor Name 10/15/2023 1 [facility] - DOS ON OR AFTER 2022 - MEDICARE ADVANTAGE [place] (MEDICARE REPLACEMENT/ADV ANTAGE - PPO) Brandie Luevano [id number] Brandie Luevano Notes Date Note Type Note [...] NP [address] [facility] [address], [address], [place], [address], 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 She has her sling in place [...] NP [address] [facility] [address], [address], [place], [address], [facility] - [employer] 10/02/2023 13:48:50 10/06/2023 text/html Pt is seen for a n acute rounding visit. Brandie is working here at [facility] and is feeling good and more mobile lately with left sling in place. She continues with therapy and making gains. She was treated for a UTI when she first came to [facility] and denies any urinary symptoms. [...] NP [address], [address], [place], [address], [facility] [employer] [facility] 10/06/2023 12:26:22 10/08/2023 text/html Pt [...] when she first came to [facility] and denies any urinary symptoms. [...] AAKASH [address], [address], [place], [place], [address], [facility] [employer] 10/08/2023 12:05:52 10/09/2023 text/html Pt is seen [...] when she first came to [facility] and denies any urinary symptoms. [...] NP [address], [address], [place], [address], [facility] - [employer] [facility] 10/09/2023 16:50:56 OBGyn Episode No OBEpisode recorded.
[2024-11-08 08:04] VITALS: BP 138/56; PULSE 99; O2SAT 97; BMI 30.8
--- NOTE | 2024-11-08 08:04 | A.OFFVIS_ITS ---
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 Splicer Apprentice Services: Manager Chinese Present Manager Chinese Name: Ankit [id number] Information Interpreted: non-clinical & clinical Accompanied by: BUSINESS SYSTEMS CONSULTANT Allergies lorazepam (LORAZEPAM) Allergy (Severe, Verified 11/08/24 08:12) DELIRIUM celecoxib (From Celebrex) Allergy (Intermediate, Verified 11/08/24 08:12) ITCHING tramadol (TRAMADOL) Allergy (Intermediate, Verified 11/08/24 08:12) ITCHING zolpidem (Ambien) Allergy (Unknown, Verified 11/08/24 08:12) unknown Medication List - Last Reconciled 11/08/24 by Cindi Guevara MD acetaminophen 650 mg (2 x 325 mg) PO Q6H PRN Actemra ACTPen (tocilizumab) 162 mg (0.9 mL) subcut Q2W NS albuterol sulfate 90 mcg/actuation 2 puffs inhalation Q4-6H PRN albuterol sulfate 2.5 mg (3 mL) inhalation Q3H PRN amlodipine 10 mg PO DAILY aripiprazole 20 mg PO DAILY atorvastatin 20 mg PO DAILY bisacodyl 10 mg (2 x 5 mg) PO BEDTIME blood sugar diagnostic (FreeStyle Lite Strips) TEST BLOOD SUGAR 8 TIMES EVERY DAY blood-glucose meter (FreeStyle Lite Meter kit) As directed blood-glucose sensor ([employer] G7 Sensor device) As directed every 10 days calcium citrate 400 mg (2 x 200 mg (950 mg)) PO BID carvedilol 6.25 mg PO BID cholecalciferol (vitamin D3) (Vitamin D3) 50 mcg PO QAM clonazepam 1 tab PO Q8H PRN clopidogrel 75 mg PO QAM cyclobenzaprine 10 mg PO TID PRN esomeprazole magnesium 40 mg PO DAILY folic acid 1 mg PO DAILY gabapentin 100 mg PO BID glucagon 3 mg/actuation (Baqsimi) 3 mg intranasal ONCE PRN 30 days hydroxyzine HCl 10 mg PO Q8H PRN insulin aspart (niacinamide) 100 unit/mL (3 mL) (Fiasp FlexTouch U-100 Insulin) 2 - 9 units subcut QID 30 days insulin syringe-needle U-100 (BD Insulin Syringe Ultra-Fine) As directed 3 times per day ipratropium-albuterol 0.5 mg-3 mg(2.5 mg base)/3 mL 3 mL inhalation RQ4H WHILE AWAKE 7 days levothyroxine 125 mcg PO DAILY 90 days linaclotide (Linzess) 145 mcg PO QAM losartan 100 mg PO DAILY melatonin 3 mg PO BEDTIME methocarbamol 500 mg PO DAILY nebulizers As directed nut.tx.gluc.intol,lac-free,soy (Glucerna oral liquid) 1 ea PO BID 28 days ondansetron 4 mg PO Q8H PRN oxycodone 5 mg PO Q4H PRN pen needle, diabetic (Pentips Pen Needle) USE FIVE TIMES DAILY prazosin 6 mg PO BEDTIME simethicone (Gas Relief (simethicone)) 125 mg PO BID-QID PRN Tresiba FlexTouch U-100 (insulin degludec) 20 units (0.2 mL) subcut DAILY 30 days NS venlafaxine ER 75 mg PO QAM venlafaxine ER 37.5 mg PO QAM zinc gluconate 30 mg PO DAILY HPI Comments Details: 74-year-old female with DM type 1 diagnosed at 40 years of age, initially thought to have type 2 diabetes, who presents for management of diabetes. Here with BUSINESS SYSTEMS CONSULTANT Last seen 09/07/2024 by Vashti Watts APRN. This is her 1st appointment with me. Interval history We have been actively titrating her insulin upward so that she can get cleared for trigger finger release surgery. A1c POC 09/07/2024 7.6%. Severe hypoglycemic event: She does report a history of hypoglycemic coma in the past. 2023 she dropped her sugar to the 20s. Current regimen: She reports using her insulin prior to meals without fail. Tresiba 19 units in AM Breakfast dosing Fiasp 80-100 4 units 101-200 7 units 151-200 8 units 201-250 9 units 251 -300 10 units Over 300 11 units Lunch and supper 80-100 8 units 101-150 9 units 151-200 9 units 201-250 10 units 250-300 11 units over 300 lunch 12 units supper 11 units Dexcom downloaded from October to 11/12/2024 Average glucose 230 mg/dL G [place] 8.8% Time CGM active 92% Send a deviation 71 mg/dL Coefficient of variation 30.8% Within target range 21% High 43% Very high 36% Low 0% Less than 1% very low Interpretation: Has significant postprandial hyperglycemia as well as elevated fasting numbers Micro complications: Ophthalmology evaluation: last eye exam 07/13 last Podiatry Visit: 08/2024 No neuropathy Symptoms reported: denies numbness, tingling, cramping in lower extremities sees Dr Ernandez macrovascular complications: CAD Other specialists: snuff grinder and screener, neurologist, Dr. 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: in past Hypothyroidism Currently on levothyroxine 125 mcg daily Last set of labs from July 2024 showed TSH was elevated at 21 with a low free T4 I Has osteoporosis, managed by Rheumatology, on bisphosphonate therapy Physical exam General: sitting comfortably in no acute distress HEENT: normocephalic/atraumatic, Cardiac: normal heart sounds Pulm: normal breath sounds B/L, no added breath sounds Abd: not distended, no tenderness Extremities: no edema, no signs of myxedema Neuro: AAO x3, Speech: normal, no facial droop, moving all 4 extremities Laboratory Tests 05/06/18 09/11/19 05/03/20 09:00 08:03 11:35 Creatinine Estimated GFR Calcium Ionized Calcium Phosphorus AST ALT Alkaline Phosphatase Albumin 25-OH Vitamin D Total 29.7 40.4 TSH Free T4 PTH Intact 110 H 82 H Ur Creatinine 24 Hour 0.61 Urine Creatinine Urine Microalbumin Microalb/Creat Ratio Ur Calcium 24 Hr 69 Calcium/Creat 24 Hr 114 07/17/21 10/04/21 11/29/21 10:32 10:15 11:23 Creatinine Estimated GFR Calcium Ionized Calcium Phosphorus AST ALT Alkaline Phosphatase Albumin 3.7 3.2 L 3.9 D 25-OH Vitamin D Total 47.1 TSH Free T4 PTH Intact Ur Creatinine 24 Hour Urine Creatinine Urine Microalbumin Microalb/Creat Ratio Ur Calcium 24 Hr Calcium/Creat 24 Hr 12/19/21 03/29/22 09/27/22 10:32 10:45 10:15 Creatinine Estimated GFR Calcium Ionized Calcium Phosphorus AST ALT Alkaline Phosphatase Albumin 3.7 3.9 3.8 25-OH Vitamin D Total 40.9 TSH Free T4 PTH Intact 72 Ur Creatinine 24 Hour Urine Creatinine Urine Microalbumin Microalb/Creat Ratio Ur Calcium 24 Hr Calcium/Creat 24 Hr 10/08/22 01/10/23 01/15/23 11:23 12:12 11:08 Creatinine Estimated GFR Calcium Ionized Calcium Phosphorus AST ALT Alkaline Phosphatase Albumin 3.9 3.5 25-OH Vitamin D Total 41.0 TSH Free T4 PTH Intact 61 Ur Creatinine 24 Hour Urine Creatinine Urine Microalbumin Microalb/Creat Ratio Ur Calcium 24 Hr Calcium/Creat 24 Hr 03/25/23 04/16/23 05/12/23 10:16 11:33 10:40 Creatinine Estimated GFR Calcium Ionized Calcium Phosphorus AST ALT Alkaline Phosphatase Albumin 3.7 3.9 3.9 25-OH Vitamin D Total TSH Free T4 PTH Intact Ur Creatinine 24 Hour Urine Creatinine Urine Microalbumin Microalb/Creat Ratio Ur Calcium 24 Hr Calcium/Creat 24 Hr 05/15/23 07/02/23 08/13/23 09:54 10:06 10:26 Creatinine Estimated GFR Calcium Ionized Calcium Phosphorus AST ALT Alkaline Phosphatase Albumin 3.8 3.9 25-OH Vitamin D Total TSH Free T4 PTH Intact Ur Creatinine 24 Hour Urine Creatinine 163.81 Urine Microalbumin 59.0 Microalb/Creat Ratio 36.0 H Ur Calcium 24 Hr Calcium/Creat 24 Hr 09/09/23 10/16/23 10/27/23 12:13 11:41 08:45 Creatinine Estimated GFR Calcium Ionized Calcium Phosphorus AST ALT Alkaline Phosphatase Albumin 3.5 3.8 3.8 25-OH Vitamin D Total 52.7 TSH Free T4 PTH Intact 55.2 Ur Creatinine 24 Hour Urine Creatinine Urine Microalbumin Microalb/Creat Ratio Ur Calcium 24 Hr Calcium/Creat 24 Hr 10/31/23 02/17/24 05/10/24 10:42 10:20 10:41 Creatinine Estimated GFR Calcium 8.7 8.9 Ionized Calcium Phosphorus AST ALT Alkaline Phosphatase Albumin 3.6 3.6 3.8 25-OH Vitamin D Total 38 51.7 TSH Free T4 PTH Intact 383.0 H Ur Creatinine 24 Hour Urine Creatinine Urine Microalbumin Microalb/Creat Ratio Ur Calcium 24 Hr Calcium/Creat 24 Hr 06/15/24 06/15/24 06/15/24 11:09 11:09 11:09 Creatinine Estimated GFR Calcium 9.5 9.5 D Ionized Calcium 5.3 Phosphorus 4.0 AST ALT Alkaline Phosphatase Albumin 4.0 4.0 25-OH Vitamin D Total 44.2 TSH 4.36 H Free T4 0.96 PTH Intact 101.8 H Ur Creatinine 24 Hour Urine Creatinine Urine Microalbumin Microalb/Creat Ratio Ur Calcium 24 Hr Calcium/Creat 24 Hr 08/16/24 10/28/24 09:24 10:04 Creatinine 1.13 Estimated GFR 47 Calcium 8.7 D 9.0 Ionized Calcium Phosphorus AST 37 H ALT 43 H Alkaline Phosphatase 73 Albumin 4.0 4.2 25-OH Vitamin D Total 78.0 TSH 21.47 H Free T4 0.60 L PTH Intact 187.5 H Ur Creatinine 24 Hour Urine Creatinine Urine Microalbumin Microalb/Creat Ratio Ur Calcium 24 Hr Calcium/Creat 24 Hr [facility] Medical History Heart palpitations Hypoglycemia due to insulin Elevated parathyroid hormone Osteoporosis Hyperlipidemia (04/21/1959) Depressive disorder (04/21/1959) Nutritional anemia (04/21/1959) Shortness of breath Hypothyroidism (04/21/1959) Anemia Chronic gastritis NSTEMI (non-ST elevated myocardial infarction) Recurrent falls (12/04/11) Iron deficiency anemia (04/21/1959) Fibromyositis (04/21/1959) Eczema (04/21/1959) High risk medication use Hepatitis C antibody positive in blood Screening for osteoporosis Screening for viral disease Joint swelling Overweight (BMI 25.0-29.9) Neck pain Swelling of knee joint, right Intra-abdominal abscess Diabetes Elevated liver function tests Intestinal malabsorption following gastrectomy Obesity (BMI 30-39.9) 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 Hypertension Cholecystitis Hyperlipidemia, unspecified Essential hypertension Atherosclerotic cardiovascular disease Fibromyalgia Folliculitis Anxiety Depression History of myocardial infarction Diabetes type 1, uncontrolled 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 Mother CVA (cerebral vascular accident) Sister Hypertension Brother Hypertension Liver cancer Social History Household Members: None Housing: Apartment Are you a primary pet care associate to a significant other at home: No Do you presently have visiting nurse or other home services: Yes Unable to assess alcohol history related to: Unable to respond Alcohol intake: never Patient Tobacco Use Status: Never used Tobacco Advance Directives Date on File: 09/17/23 service: No Current occupational status: disabled Current occupation: right hand dominant Office Procedures Glucose Monitoring Details Details: see [facility] [id number] - Glucose monitoring, continuous-physician I&R Procedure code (CPT) selection complete Assessment & Plan Assessment & Plan (1) Diabetes type 1, uncontrolled: Comment: Doses of Tresiba over 19 units cause am lows! Code(s): E10.65 - Type 1 diabetes mellitus with hyperglycemia Category: Medical Qualifiers: Coma presence: without coma Glycemic state: with hypoglycemia Q ualified Code(s): E10.649 - Type 1 diabetes mellitus with hypoglycemia without coma Plan: 74-year-old type 1 diabetic with history of hypoglycemia in the past very sensitive to insulin. A1c is iproved down to 7.6% in August 2024, however when I look at her CGM data Dexcom data downloaded over the past 2 weeks she is only in target range about 20% of the time and mostly running high. Both postprandial hyperglycemia as well as fasting hyperglycemia. Per Vashti Watts APRN Would not recommend any changes to this patient's Tresiba higher than the 19 unit she is taking as dose escalation in the past has caused significant hypoglycemia. I will just up titrate her insulin by small amounts. old dosing: Tresiba 19 units Breakfast dosing Fiasp 80-100 4 units 101-200 7 units 151-200 8 units 201-250 9 units 251 -300 10 units Over 300 11 units Lunch and supper 80-100 8 units 101-150 9 units 151-200 9 units 201-250 10 units 250-300 11 units over 300 lunch 12 units supper 11 units NEw dosing Tresiba 20 units daily Breakfast dosing Fiasp 80-100 5 units 101-200 8 units 151-200 9 units 201-250 10 units 251 -300 11 units Over 300 12 units Lunch and supper 80-100 9 units 101-150 10 units 151-200 11 units 201-250 12 units 250-300 12 units over 300 lunch 14 units supper 12 units Plan: -insulin uptitrated as above -needs repeat urine microalbumin, kidney function, ordered -up-to-date with eye visit, I am not sure if she has a history of retinopathy? -Up-to-date with Podiatry visit The patient had an opportunity to ask questions regarding treatment plan. The patient expressed understanding and agreement with the above treatment plan. The patient is aware they should contact our office by phone for worsening glucose readings or for any low blood sugars which may warrant a change in diabetes medication. Compliance is encouraged with medications and any followup testing/consults which may have been ordered. 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 She is compliant with taking medication every day on an empty stomach. At that time TSH was elevated at 21 Ordered TSH, free T4 to be repeated prior to next visit Plan I spent 30 minutes in reviewing the record, seeing the patient and documenting in the medical record. Orders: Orders 2 Free T4 (Free Thyroxine) Today E03.8 - Other specified hypothyroidism, E06.3 - Autoimmune thyroiditis, E10.649 - Type 1 diabetes mellitus with hypoglycemia without coma Thyroid Stimulating Hormone Today E03.8 - Other specified hypothyroidism, E06.3 - Autoimmune thyroiditis, E10.649 - Type 1 diabetes mellitus with hypoglycemia without coma Creatinine Today E03.8 - Other specified hypothyroidism, E06.3 - Autoimmune thyroiditis, E10.649 - Type 1 diabetes mellitus with hypoglycemia without coma Complete Blood Count no Diff Today E03.8 - Other specified hypothyroidism, E06.3 - Autoimmune thyroiditis, E10.649 - Type 1 diabetes mellitus with hypoglycemia without coma Microalbumin, Random (w Creat) Today E03.8 - Other specified hypothyroidism, E06.3 - Autoimmune thyroiditis, E10.649 - Type 1 diabetes mellitus with hypoglycemia without coma AMB Glucose Monitoring Today E10.649 - Type 1 diabetes mellitus with hypoglycemia without coma Medications: Changed 2 From insulin aspart (niacinamide) 100 unit/mL (3 mL) (Fiasp FlexTouch U-100 Insulin) 2 - 9 units subcut QID 30 days 15 mL 6RF To insulin aspart (niacinamide) 100 unit/mL (3 mL) (Fiasp FlexTouch U-100 Insulin) 4 - 14 units subcut TID 15 mL 6RF 30 days Refilled 2 Tresiba FlexTouch U-100 (insulin degludec) 20 units (0.2 mL) subcut DAILY 6 mL 3RF 30 days NS E10.649 - Type 1 diabetes mellitus with hypoglycemia without coma glucagon 3 mg/actuation (Baqsimi) 3 mg intranasal ONCE PRN 2 ea 1RF Unresponsive hypoglycemia may repeat in 15min 30 days pen needle, diabetic (Pentips Pen Needle) USE FIVE TIMES DAILY 200 ea 7RF E10.649 - Type 1 diabetes mellitus with hypoglycemia without coma Patient Instructions: Do blood work and urine test before next appointment Tresiba increase to 20 units daily Breakfast dosing Fiasp 80-100 5 units 101-200 8 units 151-200 9 units 201-250 10 units 251 -300 11 units Over 300 12 units Lunch and supper 80-100 9 units 101-150 10 units 151-200 11 units 201-250 12 units 250-300 12 units over 300 lunch 14 units supper 12 units Coding Level of Care Code Est Pt Level 4 (50144) Diagnoses Uncontrolled type 1 diabetes mellitus with hypoglycemia without coma E10.649 Coma presence: without coma Glycemic state: with hypoglycemia 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
[2024-11-08 08:20] LABS: Glucose, Whole Blood 285 mg/dL (60-115)
== END 2024-11-08 08:40 | disposition home or self-care (01) ==
LOC: HO.ENCR 07:58
PROVIDERS: PCP Internal Medicine; Visit Provider Student in an Organized Health Care Education/Training Program
DX: E10.649 Type 1 diabetes mellitus with hypoglycemia without coma (principal); E03.8 Other specified hypothyroidism; E06.3 Autoimmune thyroiditis
CPT/HCPCS: 95251; 99214

== ENCOUNTER → 2024-11-08 07:58 | Outpatient (BNVA) | payer OTHER, SELFPAY | PROVIDERS: PCP Internal Medicine; Visit Provider Student in an Organized Health Care Education/Training Program | DX: E10.65 Type 1 diabetes mellitus with hyperglycemia (principal); E06.3 Autoimmune thyroiditis; E10.649 Type 1 diabetes mellitus with hypoglycemia without coma | CPT/HCPCS: 82947; 99212 ==

== ENCOUNTER 2024-11-08 10:12 | Emergency (ER) | payer OTHER, SELFPAY ==
[2024-11-08] VITALS (10 sets, daily range): BP systolic 141–185; BP diastolic 58–98; PULSE 87–101; RESP 15–22; TEMP 36–36.9; O2SAT 94–99; BMI 26.6
--- NOTE | ~2024-11-08 | XR_ITS ---
EXAMINATION: XR HAND, RIGHT CLINICAL INFORMATION: post reduction fourth digit PIP joint dislocation COMPARISON: Comparison the same day exam at 10:52 AM TECHNIQUE: PA, lateral, and oblique views of the right hand. FINDINGS: Again noted is diffuse osteopenia. The ulnar dislocated PIP joint of the fourth digit has been reduced. There is possibly a small bony fragment on the ulnar side of the head of the proximal phalanx. Additionally, there is subtle cortical lucency and step off along the dorsal base of the middle phalanx. There is soft tissue swelling involving the fourth digit. There is severe narrowing of the third metacarpophalangeal joint. There is chondral calcinosis in the triangular fibrocartilage. XR/XR hand RT min 3V IMPRESSION: Reduced PIP joint of the fourth digit with suspected small cortical fragment along the ulnar aspect of the head of the fourth proximal phalanx and suspected nondisplaced fracture involving the dorsal base of the middle phalanx at the extensor tendon enthesis. 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 Electronically signed by: Hi Nava MD 11/08/2024 12:48 PM EDT
--- NOTE | ~2024-11-08 | CT_ITS ---
EXAMINATION: CT HEAD WITHOUT CONTRAST CLINICAL INFORMATION: Trauma COMPARISON: February 12, 2018 TECHNIQUE: Contiguous axial imaging was performed from the skull base to vertex without intravenous administration of contrast. This CT examination was performed using dose optimization techniques as appropriate, variously including the following: *Automated exposure control *Adjustment of mA and/or kV according to patient size (this includes techniques or standardized protocols for targeted exams where dose is matched to indication/reason for exam; i.e. extremities or head) *Use of iterative reconstruction technique DLP: 740 mGY*cm FINDINGS: Right frontal scalp hematoma extends down to the bridge of the nose. There is no acute ischemic change. There is no intracranial hemorrhage. There is no mass-effect or midline shift. There is mild generalized atrophy. Periventricular white matter hypodensities are similar to the prior Basal cisterns and ventricles are within normal limits for age/cerebral volume. Orbits are symmetrical and unremarkable. Paranasal sinuses and mastoid air cells are pneumatized. There is subtle buckling of the left nasal bone that appears slightly more pronounced than on the prior examination. There are severe degenerative changes involving the right and [id number] degenerative changes involving the left temporal mandibular joints. CT/CT head/brain wo IV con IMPRESSION: No acute intracranial abnormality. Possible minimal left nasal bone fracture. 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 Electronically signed by: Hi Nava MD 11/08/2024 11:24 AM EDT
--- NOTE | ~2024-11-08 | CT_ITS ---
EXAMINATION: CT CERVICAL SPINE WITHOUT CONTRAST CLINICAL INFORMATION: Trauma COMPARISON: February 12, 2018 TECHNIQUE: Axial imaging was performed from the base of the skull through T2 without IV contrast. Coronal and sagittal reformatted images were generated from the original axial data set. ALARA: The examination used one or more of the following radiation dose reduction techniques: Automated exposure control, iterative reconstruction, and/or adjustment of mA and/or KV. DLP: 367 mGY*cm FINDINGS: Trace effusion is present in the right mastoid air cells. There is stippled and amorphous calcific density involving the transverse band of the cruciate ligament posterior to the dens. Moderate marginal osteophytes are present involving facets at C2-3 and C3-4 There is faint central calcific density within the disc at C2-3 and C3-4. There is a limbus vertebra involving anterior superior C5 vertebral body. Images through the lungs demonstrates patchy groundglass densities in the right apex CT/CT cervical spine wo IV con IMPRESSION: No acute cervical spine abnormality. CPPD disease. Nonspecific patchy groundglass densities in the right apex, correlate for signs symptoms of pulmonary edema or pneumonia. Electronically signed by: Hi Nava MD 11/08/2024 11:17 AM EDT
--- NOTE | ~2024-11-08 | XR_ITS ---
EXAMINATION: XR HAND 3 OR MORE VIEWS RIGHT HISTORY: TRAUMA COMPARISON: Comparison is made with the prior examination dated 07/30/2023. FINDINGS: Three views of the right hand are submitted. The bones are osteopenic. There is ulnar dislocation of the 4th finger at the PIP joint. A tiny osseous density at the dorsum of the wrist may represent a triquetral fracture. There is narrowing of the 2nd and 3rd MCP joints as well as the interphalangeal joints. There is volar angulation of the lunate and widening of the scapholunate joint. The soft tissues are unremarkable. XR/XR hand RT min 3V IMPRESSION: 1. Ulnar dislocation of the 4th finger at the PIP joint. 2. Probable triquetral fracture. 3. 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 Electronically signed by: Chuy Yuan MD 11/08/2024 11:02 AM EDT
--- NOTE | ~2024-11-08 | XR_ITS ---
EXAMINATION: XR WRIST, LEFT CLINICAL INFORMATION: TRAUMA COMPARISON: 01/10/2023. TECHNIQUE: PA, lateral, oblique, and scaphoid views of the left wrist. FINDINGS: There is an acute comminuted distal radial metaphyseal fracture with intra-articular involvement, mild impaction measuring approximately 4 mm, and mild dorsal angulation of the distal fragment. There is mild displacement present. There is an acute transverse minimally displaced fracture of the distal ulna at the metaphyseal level. The carpal bones appear intact and aligned normally. No additional fractures seen. Mild degenerative arthritis at the first CMC joint. There is diffuse soft tissue swelling about the wrist. XR/XR wrist LT min 3V IMPRESSION: 1. Acute comminuted intra-articular distal radial metaphyseal fracture with mild displacement, mild impaction and mild dorsal angulation. 2. Acute transverse minimally displaced fracture of the distal ulna at the metaphyseal level. 3. Diffuse soft tissue swelling. Electronically signed by: Ceasar Taveras MD 11/08/2024 11:05 AM EDT
--- NOTE | 2024-11-08 10:25 | ECG_ITS ---
Test Reason : fall Blood Pressure : */* mmHG Vent. Rate : 92 BPM Atrial Rate : 93 BPM P-R Int : 146 ms QRS Dur : 92 ms QT Int : 346 ms P-R-T Axes : 63 61 72 degrees QTcB Int : 427 ms Normal sinus rhythm Normal ECG When compared with ECG of 04-Jan-2024 12:14, Vent. rate has increased by 36 bpm Nonspecific T wave abnormality no longer evident in Lateral leads Referred By: Viral Mccollum Electronically Signed By: Jose Oden
[2024-11-08 10:26] LABS: Glucose, Whole Blood 109 mg/dL (60-115)
[2024-11-08 10:27] LABS: MANUAL DIFF FLAG NO
--- NOTE | 2024-11-08 10:27 | ED.FALL ---
HPI - Fall General Chief Complaint: Fall Stated Complaint: fall Time Seen by Provider: 11/08/24 10:17 Source: patient Limitations: no limitations History of Present Illness HPI Narrative: THIS IS A 74 YEARS OLD FEMALE PATIENT WITH A HISTORY OF IRON DEFICIENCY ANEMIA SHE WENT TODAY FOR HEMATOLOGY VISIT AND SHE FELL IN THE HOSPITAL SHE SUSTAINED HEAD INJURY SHE WAS TRANSPORTED HERE BY STRETCHER BY STAFF. THE FALL IS MECHANICAL 1 NO SYNCOPE complaint: fall Onset (ago): minute(s) (15) Fall from: standing Place fall occurred: other (HOSPITAL) Loss of consciousness: none Prolonged down time: no Symptoms prior to fall: none Context: tripped/slipped Location of injury: head and other (LEFT WRIST RIGHT HAND) Severity: moderate Severity scale (1-10): 5 Associated symptoms (after fall): headache Related Data Home Medications ?Medication ?Instructions ?Recorded ?Confirmed hydroxyzine HCl 10 mg tablet 10 mg PO Q8H PRN Anxiety 02/22/20 11/08/24 clonazepam 0.5 mg tablet 1 tab PO Q8H PRN anxiety 01/02/21 11/08/24 amlodipine 10 mg tablet 10 mg PO DAILY 05/14/22 11/08/24 prazosin 2 mg capsule 6 mg PO BEDTIME 05/14/22 11/08/24 aripiprazole 20 mg tablet 20 mg PO DAILY 01/10/23 11/08/24 losartan 100 mg tablet 100 mg PO DAILY 07/30/23 11/08/24 atorvastatin 20 mg tablet 20 mg PO DAILY 08/21/23 11/08/24 gabapentin 100 mg capsule 100 mg PO BID 08/21/23 11/08/24 melatonin 3 mg tablet 3 mg PO BEDTIME 08/21/23 11/08/24 methocarbamol 500 mg tablet 500 mg PO DAILY 09/09/23 11/08/24 venlafaxine 37.5 mg 37.5 mg PO QAM 10/07/24 11/08/24 capsule,extended release 24 hr venlafaxine 75 mg capsule,extended 75 mg PO QAM 10/07/24 11/08/24 release 24 hr Previous Rx's ?Medication ?Instructions ?Recorded insulin syringe-needle U-100 0.3 #100 oné 06/13/20 mL 31 gauge x 5/16 (BD Insulin Syringe Ultra-Fine) blood-glucose meter (FreeStyle #1 noé 05/20/22 Lite Meter kit) albuterol sulfate 90 mcg/actuation 2 puff inhalation Q4-6H PRN 04/10/23 aerosol inhaler shortness of breath or wheezing #8.5 grams albuterol sulfate 2.5 mg/3 mL 2.5 mg (3 mL) inhalation Q3H PRN 04/18/23 (0.083 %) solution for nebulization sob #180 mL ipratropium 0.5 mg-albuterol 3 mg 3 ml inhalation RQ4H WHILE AWAKE 7 04/18/23 (2.5 mg base)/3 mL nebulization days #180 mL soln nebulizers #1 ea 04/18/23 acetaminophen 325 mg tablet 650 mg (2 x 325 mg) PO Q6H PRN 09/16/23 Pain, Mild (Pain Scale 1-3) #1 tab oxycodone 5 mg tablet 5 mg PO Q4H PRN Pain, 09/16/23 Moderate(Pain Scale 4-6) #18 tabs nut.tx.gluc.intol,lac-free,soy 1 ea PO BID 28 days #2,880 mL 10/16/23 (Glucerna oral liquid) cyclobenzaprine 10 mg tablet 10 mg PO TID PRN muscle spasm #10 12/06/23 tabs ondansetron 4 mg disintegrating 4 mg PO Q8H PRN nausea and 01/04/24 tablet vomiting #7 tabs zinc gluconate 30 mg tablet 30 mg PO DAILY #90 tabs 04/01/24 bisacodyl 5 mg tablet,delayed 10 mg (2 x 5 mg) PO BEDTIME #60 06/18/24 release tabs carvedilol 6.25 mg tablet 6.25 mg PO BID #180 tabs 07/22/24 blood-glucose sensor (Dexcom G7 #3 ea 07/30/24 Sensor device) blood sugar diagnostic (FreeStyle #200 strips 08/03/24 Lite Strips) clopidogrel 75 mg tablet 75 mg PO QAM #90 tabs 08/03/24 esomeprazole magnesium 40 mg 40 mg PO DAILY #30 caps 08/11/24 capsule,delayed release linaclotide 145 mcg capsule 145 mcg PO QAM #30 caps 08/11/24 (Linzess) simethicone 125 mg chewable tablet 125 mg PO BID-QID PRN abdominal 08/11/24 (Gas Relief (simethicone)) distention #90 tabs folic acid 1 mg tablet 1 mg PO DAILY #90 tabs 08/17/24 levothyroxine 125 mcg tablet 125 mcg PO DAILY 90 days #90 tabs 08/20/24 calcium citrate 400 mg (2 x 200 mg (950 mg)) PO 09/22/24 BID #120 tabs cholecalciferol (vitamin D3) 50 50 mcg PO QAM #30 caps 09/22/24 mcg (2,000 unit) capsule (Vitamin D3) Actemra ACTPen 162 mg/0.9 mL 162 mg (0.9 mL) subcut Q2W #1.8 mL 10/05/24 subcutaneous pen injector (tocilizumab) Tresiba FlexTouch U-100 100 20 unit (0.2 mL) subcut DAILY 30 11/08/24 unit/mL (3 mL) subcutaneous pen days #6 mL (insulin degludec) glucagon 3 mg/actuation nasal 3 mg intranasal ONCE PRN 11/08/24 spray (Baqsimi) Unresponsive hypoglycemia may repeat in 15min 30 days #2 ea insulin aspart 4 - 14 unit subcut TID 30 days #15 11/08/24 (niacinamide)(U-100) 100 unit/mL(3 mL mL) subcutaneous pen (Fiasp FlexTouch U-100 Insulin) pen needle, diabetic 32 gauge x #200 ea 11/08/24 (Pentips Pen Needle) oxycodone 5 mg tablet 5 mg PO Q8H PRN severe pain (scale 11/09/24 score 7-10) #9 tabs Allergies Allergy/AdvReac Type Severity Reaction Status Date / Time lorazepam (LORAZEPAM) Allergy Severe DELIRIUM Verified 11/08/24 10:28 celecoxib (From Celebrex) Allergy Intermediate ITCHING Verified 11/08/24 10:28 tramadol (TRAMADOL) Allergy Intermediate ITCHING Verified 11/08/24 10:28 zolpidem (Ambien) Allergy Unknown unknown Verified 11/08/24 10:28 Review of Systems Review of Systems: Yes all other systems are reviewed and are negative PMFSH Past Medical History Medical History Heart palpitations Hypoglycemia due to insulin Elevated parathyroid hormone Osteoporosis Hyperlipidemia (04/21/1959) Depressive disorder (04/21/1959) Nutritional anemia (04/21/1959) Shortness of breath Hypothyroidism (04/21/1959) Anemia Chronic gastritis NSTEMI (non-ST elevated myocardial infarction) Recurrent falls (12/04/11) Iron deficiency anemia (04/21/1959) Fibromyositis (04/21/1959) Eczema (04/21/1959) High risk medication use Hepatitis C antibody positive in blood Screening for osteoporosis Screening for viral disease Joint swelling Overweight (BMI 25.0-29.9) Neck pain Swelling of knee joint, right Intra-abdominal abscess Diabetes Elevated liver function tests Intestinal malabsorption following gastrectomy Obesity (BMI 30-39.9) 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 Hypertension Cholecystitis Hyperlipidemia, unspecified Essential hypertension Atherosclerotic cardiovascular disease Fibromyalgia Folliculitis Anxiety Depression History of myocardial infarction Diabetes type 1, uncontrolled Hyperparathyroidism due to vitamin D deficiency Dyslipidemia Rona's disease Hypothyroidism Surgical History Status post gastric bypass for obesity History of bypass gastroenterostomy (11/13/17) H/O gastric bypass S/P laparoscopic cholecystectomy History of esophagogastroduodenoscopy (EGD) H/O colonoscopy History of laparoscopic cholecystectomy History of bladder suspension procedure Status post laser cataract surgery of both eyes Hx of appendectomy Family History Family History Father No problems noted. Mother CVA (cerebral vascular accident) Sister Hypertension Brother Hypertension Liver cancer Social History Social History Household Members: None Housing: Apartment Are you a primary patient care provider to a significant other at home: No Do you presently have visiting nurse or other home services: Yes Unable to assess alcohol history related to: Unable to respond Alcohol intake: never Patient Tobacco Use Status: Never used Tobacco Smoked in Last 30 Days: No Use of substances other than those prescribed or required for medical reasons: No Advance Directives: Yes Advance Directives on File: Yes Advance Directives Date on File: 09/17/23 Do you have a plan to hurt others: No Plan service: No Current occupational status: disabled Current occupation: right hand dominant Physical Exam Exam: Exam: AWAKE AND ALERT Vital Signs: Vital Signs: Last Vital Signs Temp 98.7 F 11/09/24 11:29 Pulse 123 H 11/09/24 11:29 Resp 19 11/09/24 11:29 BP 144/75 H 11/09/24 11:29 Pulse Ox 92 11/09/24 11:29 O2 Del Method Room Air 11/09/24 11:29 BMI result Body Mass Index 26.6 Const: General: cooperative and well developed Orientation/consciousness: patient oriented x3 HEENT: Other: HEMATOMA FOREHEAD PRESENT Head: Yes normal to inspection General nose exam: Other nasal findings present (1 cm THE LACERATION BRIDGE OF THE NOSE) Mouth: other (2 CM IN THE LENGTH SEDATION UPPER LIP INNER (MUCOSA)) Neck: Neck: Yes normal visual inspection Chest: Chest palpation & inspection: normal inspection of the chest Resp: Effort & Inspection: normal respiratory effort Cardio: Jugular venous distension: no JVD Rate: regular rate Rhythm: regular rhythm GI: Inspection: Yes normal to inspection Palpation (GI): Soft to palpation, not firm and nontender Auscultation: normal bowel sounds Skin: General skin exam: no rashes or lesions noted Neuro: General: patient oriented x3 Cranial nerves: Yes CN's II-XII intact bilaterally Extrem: Other: DEFORMITY LEFT WRIST, DEFORMITY RIGHT FOREFINGER General: Yes normal to inspection Right upper extremity: normal to inspection Course Course Course Narrative: 11/09/24 0958 AAKASH Yanez: Physician observation continued, no overnight events reported by nursing. Patient complaining of severe pain this morning, p.o. morphine ordered. PT recommending short-term rehab, following for disposition. 11/09/24 1443 AAKASH Yanez: Per Angelia from , patient will be discharged to [facility] for STR. Observation care revealed that patient does not meet medical necessity for hospitalization. Final disposition discussed with patient. The patient completed observation care at 0900 on 11/10/24. Reevaluation(s) Reevaluation #1: The right 4th finger dislocation was reduced lip laceration was repaired nose laceration was repaired with Dermabond the forehead laceration was repaired with Dermabond at this point we will consult corrections caseworker PT for discharge planning Time: 12:04 Reevaluation #2: spoke with son waiting PT eval and BE eval Time: 15:31 Reevaluation #3: failed PT will need rehab 5 PM off shift now signed out to Dr Childs Time: 17:20 Medications Administered Generic Name Dose Route Start Last Admin Trade Name Oseas PRN Reason Stop Dose Admin Acetaminophen 650 mg 11/08/24 18:39 11/09/24 10:23 Acetaminophen 325 Mg Tablet PO 650 mg Q6H PRN Administration Pain, Moderate(Pain Scale 4-6) Insulin Human Lispro 0 unit 11/09/24 11:30 11/09/24 11:46 Insulin Lispro 100 Unit/Ml 3 Ml Vial SUBCUT 11/10/24 09:22 4 unit QIDACHS SARAH Administration Protocol Discontinued Medications Generic Name Dose Route Start Last Admin Trade Name Oseas PRN Reason Stop Dose Admin Lidocaine HCl 5 ml 11/08/24 10:27 11/08/24 10:34 Lidocaine Hcl 1 % Mpf 5 Ml Vial INFILTRATI 11/08/24 10:28 5 ml ONCE ONE Administration Methocarbamol 750 mg 11/08/24 23:28 11/08/24 23:44 Methocarbamol 750 Mg Tablet PO 11/08/24 23:29 750 mg ONCE ONE Administration Methocarbamol 750 mg 11/08/24 23:48 11/09/24 00:06 Methocarbamol 750 Mg Tablet PO 11/08/24 23:49 750 mg ONCE ONE Administration Morphine Sulfate 4 mg 11/08/24 11:17 11/08/24 11:22 Morphine Sulfate 4 Mg/Ml Cartridge IVPUSH 11/08/24 11:18 4 mg ONCE ONE Administration Protocol Morphine Sulfate 15 mg 11/09/24 08:18 11/09/24 08:26 Morphine Sulfate Immed Release 15 Mg Tablet PO 11/09/24 08:19 15 mg ONCE ONE Administration Ondansetron HCl 4 mg 11/09/24 10:16 11/09/24 10:23 Ondansetron Odt 4 Mg Tab.Rapdis TRANSLINGU 11/09/24 10:17 4 mg ONCE ONE Administration Oxycodone HCl 5 mg 11/08/24 15:33 11/08/24 15:38 Oxycodone Hcl Immed Release 5 Mg Tablet PO 11/08/24 15:34 5 mg ONCE ONE Administration Procedures Laceration Laceration 1: Site: other (inner upper li) Size (cm): 2 Description: linear Depth: simple, single layer Local Anesthetic: lidocaine 1% Skin layer closed with: vicryl Size (cm): 5-0 Number of sutures: 3 Technique: simple, interrupted Laceration 2: Site: other (nose 1 cm) Size (cm): 1 Description: linear Depth: simple, single layer Skin layer closed with: other (dermabond) Orthopedic Joint Reduction rt forth finger: Time Out Performed: Yes Side: right Joint Reduction Location: other (4th finger) Analgesia: nerve block Local Anesthesia: lidocaine 1% Amount of anesthesic used (mL): 3 Technique used: traction/counter-traction Post-reduction neuro exam: intact Post-reduction vascular: intact Post Reduction X-Ray Obtained: Yes Post Reduction X-Ray Results: reduced Splint Applied: No Patient Tolerated Procedure: well and no complications Medical Decision Making Medical Decision Making [facility] Narrative: PATIENT PRESENTED AFTER A FALL WITH A HEAD INJURY LEFT WRIST INJURY RIGHT NOLAN INJURY WE WILL OBTAIN X-RAY Differential Diagnosis Differential Diagnoses: The differential diagnosis associated with the presentation includes SUBDURAL HEMATOMA/EPIDURAL HEMATOMA/LEFT WRIST FRACTURE/ Lab Data 11/08/24 10:25 11/08/24 10:25 Labs: Lab Results 11/08/24 11/08/24 11/08/24 Range/Units 10:21 10:25 11:18 WBC 9.5 (4.8-10.8) X10*3/uL RBC 4.02 L (4.20-5.50) X10*6/uL Hgb 11.4 L (12.0-16.0) g/dl Hct 35.2 L (37.0-47.0) % MCV 87.6 (80.0-98.0) fL MCH 28.4 (27.0-33.0) pg MCHC 32.4 (31.0-35.0) g/dl RDW 13.9 (11.0-16.0) % Plt Count 205 (160-400) X10*3/uL MPV 10.7 (9.4-12.3) fL Immature Gran % (Auto) 0.4 (0.0-0.4) % Neut % (Auto) 46.1 (45-73) % Lymph % (Auto) 33.4 (20-40) % [place] % (Auto) 7.0 (2-11) % Eos % (Auto) 12.2 H (0-4) % Baso % (Auto) 0.9 (0-2) % Lymph # (Auto) 3.2 (1.2-4.9) X10*3/uL [place] # (Auto) 0.7 (0.1-1.2) X10*3/uL Eos # (Auto) 1.2 H (0.0-0.4) X10*3/uL Baso # (Auto) 0.1 (0.0-0.2) X10*3/uL Abs Immat Gran (auto) 0.04 H (0.00-0.03) X10*3/uL Absolute Neuts (auto) 4.4 (2.0-8.3) x10*3/uL Absolute Nucleated RBC 0.000 (0.0-0.012) X10*3/uL Nucleated RBC % (auto) 0.0 (0.0-0.2) /100WBC PT 9.5 L (10.9-12.4) SEC INR 0.8 L (0.9-1.1) APTT 26.7 (26.0-36.8) SEC Sodium 140 (135-145) mmol/L Potassium 5.0 (3.3-5.1) mmol/L Chloride 107 (96-108) mmol/L Carbon Dioxide 25 (22-29) mmol/L Anion Gap 13 (12-20) BUN 20 H (9-16) mg/dL Creatinine 1.08 (0.5-1.4) mg/dL Estim Creat Clear Calc 47.3 Estimated GFR 50 POC Glucose 109 (60-115) mg/dL Random Glucose 110 (60-115) mg/dL Calcium 8.9 (8.4-10.2) mg/dL Magnesium 2.1 (1.6-2.6) mg/dL Total Bilirubin 0.3 (0.0-1.0) mg/dL AST 42 H (5-31) U/L ALT 32 H (0-31) U/L Alkaline Phosphatase 72 (39-117) U/L Troponin I High Sens 7.3 D (<3.5-17.0) ng/L Total Protein 6.6 (6.5-8.0) g/dL Albumin 4.0 (3.5-5.0) g/dL Influenza Type A (PCR) (Negative) Influenza Type B (PCR) (Negative) RSV RNA Qual (PCR) (Negative) SARS-CoV-2 RNA (RT-PCR) (Negative) 11/08/24 11/09/24 11/09/24 Range/Units 12:22 03:12 08:00 WBC (4.8-10.8) X10*3/uL RBC (4.20-5.50) X10*6/uL Hgb (12.0-16.0) g/dl Hct (37.0-47.0) % MCV (80.0-98.0) fL MCH (27.0-33.0) pg MCHC (31.0-35.0) g/dl RDW (11.0-16.0) % Plt Count (160-400) X10*3/uL MPV (9.4-12.3) fL Immature Gran % (Auto) (0.0-0.4) % Neut % (Auto) (45-73) % Lymph % (Auto) (20-40) % [place] % (Auto) (2-11) % Eos % (Auto) (0-4) % Baso % (Auto) (0-2) % Lymph # (Auto) (1.2-4.9) X10*3/uL [place] # (Auto) (0.1-1.2) X10*3/uL Eos # (Auto) (0.0-0.4) X10*3/uL Baso # (Auto) (0.0-0.2) X10*3/uL Abs Immat Gran (auto) (0.00-0.03) X10*3/uL Absolute Neuts (auto) (2.0-8.3) x10*3/uL Absolute Nucleated RBC (0.0-0.012) X10*3/uL Nucleated RBC % (auto) (0.0-0.2) /100WBC PT (10.9-12.4) SEC INR (0.9-1.1) APTT (26.0-36.8) SEC Sodium (135-145) mmol/L Potassium (3.3-5.1) mmol/L Chloride (96-108) mmol/L Carbon Dioxide (22-29) mmol/L Anion Gap (12-20) BUN (9-16) mg/dL Creatinine (0.5-1.4) mg/dL Estim Creat Clear Calc Estimated GFR POC Glucose 250 H 283 H (60-115) mg/dL Random Glucose (60-115) mg/dL Calcium (8.4-10.2) mg/dL Magnesium (1.6-2.6) mg/dL Total Bilirubin (0.0-1.0) mg/dL AST (5-31) U/L ALT (0-31) U/L Alkaline Phosphatase (39-117) U/L Troponin I High Sens (<3.5-17.0) ng/L Total Protein (6.5-8.0) g/dL Albumin (3.5-5.0) g/dL Influenza Type A (PCR) NEGATIVE (Negative) Influenza Type B (PCR) NEGATIVE (Negative) RSV RNA Qual (PCR) NEGATIVE (Negative) SARS-CoV-2 RNA (RT-PCR) NEGATIVE (Negative) Discharge Plan Discharge Clinical Impression: Head injury Qualifiers: Encounter type: initial encounter Qualified Code(s): S09.90XA - Unspecified injury of head, initial encounter Fracture of wrist Qualifiers: Encounter type: initial encounter Fracture type: closed Laterality: left Qualified Code(s): S62.102A - Fracture of unspecified carpal bone, left wrist, initial encounter for closed fracture Dislocation closed, finger Qualifiers: Encounter type: initial encounter Qualified Code(s): S63.259A - Unspecified dislocation of unspecified finger, initial encounter Laceration of mouth, internal Qualifiers: Encounter type: initial encounter Qualified Code(s): S01.512A - Laceration without foreign body of oral cavity, initial encounter Fracture of nasal bone Qualifiers: Encounter type: initial encounter Fracture type: closed Qualified Code(s): S02.2XXA - Fracture of nasal bones, initial encounter for closed fracture Laceration of nose Qualifiers: Encounter type: initial encounter Qualified Code(s): S01.21XA - Laceration without foreign body of nose, initial encounter Patient Disposition: Xfer Inpatient Rehab Fac Transfer Details: to [facility] Additional Instructions: You will need to follow up with orthopedics. You are being prescribed oxycodone for severe pain. Return to the emergency department for new or concerning symptoms. Prescriptions: New oxycodone 5 mg tablet 5 mg PO Q8H PRN (Reason: severe pain (scale score 7-10)) Qty: 9 0RF Rx Instructions: Partial Fill upon patient request. No Action (DME) insulin syringe-needle U-100 [BD Insulin Syringe Ultra-Fine] 0.3 mL 31 gauge x 5/16 syringe See Rx Instructions .ROUTE .MEDSUPPLY Qty: 100 0RF Rx Instructions: As directed 3 times per day (DME) blood-glucose meter [FreeStyle Lite Meter] Kit See Rx Instructions .ROUTE .MEDSUPPLY Qty: 1 0RF Rx Instructions: As directed zinc gluconate 30 mg tablet 30 mg PO DAILY Qty: 90 3RF bisacodyl 5 mg tablet,delayed release (DR/EC) 10 mg PO BEDTIME Qty: 60 6RF carvedilol 6.25 mg tablet 6.25 mg PO BID Qty: 180 3RF (DME) Dexcom G7 Sensor Device See Rx Instructions .ROUTE .MEDSUPPLY Qty: 3 11RF Rx Instructions: As directed every 10 days clopidogrel 75 mg tablet 75 mg PO QAM Qty: 90 3RF (DME) FreeStyle Lite Strips Strip See Rx Instructions .ROUTE .COMPLEX Qty: 200 11RF Dose Instruction: TEST BLOOD SUGAR 8 TIMES EVERY DAY Rx Instructions: TEST BLOOD SUGAR 8 TIMES EVERY DAY levothyroxine 125 mcg tablet 125 mcg PO DAILY 90 Days Qty: 90 1RF cholecalciferol (vitamin D3) [Vitamin D3] 50 mcg (2,000 unit) capsule 50 mcg PO QAM Qty: 30 4RF calcium citrate 200 mg (950 mg) tablet 400 mg PO BID Qty: 120 4RF Actemra ACTPen 162 mg/0.9 mL pen injector 162 mg subcut Q2W Qty: 1.8 5RF folic acid 1 mg Tablet 1 mg PO DAILY Qty: 90 4RF clonazepam 0.5 mg tablet 1 tab PO Q8H PRN (Reason: anxiety) methocarbamol 500 mg tablet 500 mg PO DAILY acetaminophen 325 mg Tablet 650 mg PO Q6H PRN (Reason: Pain, Mild (Pain Scale 1-3)) Qty: 1 0RF oxycodone 5 mg Tablet 5 mg PO Q4H PRN (Reason: Pain, Moderate(Pain Scale 4-6)) Qty: 18 0RF Rx Instructions: Partial Fill upon patient request. cyclobenzaprine 10 mg tablet 10 mg PO TID PRN (Reason: muscle spasm) Qty: 10 0RF ondansetron 4 mg tablet,disintegrating 4 mg PO Q8H PRN (Reason: nausea and vomiting) Qty: 7 0RF albuterol sulfate 90 mcg/actuation HFA aerosol inhaler 2 puff inhalation Q4-6H PRN (Reason: shortness of breath or wheezing) Qty: 8.5 0RF ipratropium-albuterol 0.5 mg-3 mg(2.5 mg base)/3 mL Solution For Nebulization 3 ml inhalation RQ4H WHILE AWAKE 7 Days Qty: 180 2RF albuterol sulfate 2.5 mg /3 mL (0.083 %) Solution For Nebulization 2.5 mg inhalation Q3H PRN (Reason: sob) Qty: 180 2RF (DME) nebulizers Misc See Rx Instructions .Route Qty: 1 0RF Rx Instructions: As directed hydroxyzine HCl 10 mg tablet 10 mg PO Q8H PRN (Reason: Anxiety) amlodipine 10 mg tablet 10 mg PO DAILY prazosin 2 mg capsule 6 mg PO BEDTIME aripiprazole 20 mg tablet 20 mg PO DAILY losartan 100 mg tablet 100 mg PO DAILY Glucerna Liquid 1 ea PO BID 28 Days Qty: 2880 2RF Linzess 145 mcg capsule 145 mcg PO QAM Qty: 30 12RF Rx Instructions: Take first thing in the morning with a full glass of water. esomeprazole magnesium 40 mg capsule,delayed release(DR/EC) 40 mg PO DAILY Qty: 30 6RF simethicone [Gas Relief (simethicone)] 125 mg tablet,chewable 125 mg PO BID-QID PRN (Reason: abdominal distention) Qty: 90 12RF gabapentin 100 mg capsule 100 mg PO BID melatonin 3 mg tablet 3 mg PO BEDTIME atorvastatin 20 mg tablet 20 mg PO DAILY venlafaxine 37.5 mg capsule,extended release 24hr 37.5 mg PO QAM venlafaxine 75 mg capsule,extended release 24hr 75 mg PO QAM Baqsimi 3 mg/actuation spray,non-aerosol 3 mg intranasal ONCE PRN (Reason: Unresponsive hypoglycemia may repeat in 15min) 30 Days Qty: 2 1RF insulin degludec [Tresiba FlexTouch U-100] 100 unit/mL (3 mL) insulin pen 20 unit subcut DAILY 30 Days Qty: 6 3RF (DME) pen needle, diabetic [Pentips Pen Needle] 32 gauge x 5/32 needle See Rx Instructions .ROUTE .COMPLEX Qty: 200 7RF Dose Instruction: USE FIVE TIMES DAILY Rx Instructions: USE FIVE TIMES DAILY Fiasp FlexTouch U-100 Insulin 100 unit/mL (3 mL) insulin pen 4 - 14 unit subcut TID 30 Days Qty: 15 6RF Referrals: [facility] [Outside] Referral Note: [address] [place] [address] Iker Hartley MD [Physician, Orthopedics] - 11/11/24 Clinical Impression: Fracture of wrist Print Language: Palestinian
[2024-11-08] MEDS: Lidocaine HCl 1 % MPF 5 ML VIAL INFILTRATI (10:34)
[2024-11-08 10:38] LABS: Hematocrit 35.2 % (37.0-47.0); Hemoglobin 11.4 g/dl (12.0-16.0); Imm Gran Abs Auto 0.04 X10*3/uL (0.00-0.03); Imm Gran Pct Auto 0.4 % (0.0-0.4); Lymphocytes Absolute Auto 3.2 X10*3/uL (1.2-4.9); Mean Corpuscular HGB Conc 32.4 g/dl (31.0-35.0); Mean Corpuscular Hemoglobin 28.4 pg (27.0-33.0); Mean Corpuscular Volume 87.6 fL (80.0-98.0); NRBC Abs Auto 0.000 X10*3/uL (0.0-0.012); NRBC Pct Auto 0.0 /100WBC (0.0-0.2); Platelet Count 205 X10*3/uL (160-400); Red Blood Count 4.02 X10*6/uL (4.20-5.50); White Blood Count 9.5 X10*3/uL (4.8-10.8)
--- NOTE | 2024-11-08 10:42 | PC.NURSE ---
pt presents to the ED as an outpatient response d/t witnessed fall s/p having follow up appt w/ dr. wills (hx iron deficiency anemia). pt reports feeling increased dizziness/lightheadedness prior to fall while utilizing cane. +headstrike. large hematoma noted to center of forehead. laceration to bridge of nose and right upper/inside of lip. -loc. +thinners. patient stretched hands out when landing - obvious deformities noted to right hand/fingers. swelling noted to left wrist. bleeding controlled when lacerations visualized. vss and up to date. nsr on the playground monitor. hx DM - POC = 109mg/dL upon ED arrival. 18gIV placed in the right AC - labs obtained/sent to lab. on RA w/o difficulty. no apparent respiratory distress/airway compromise. no sob/wob noted. respirations even/unlabored. pt currently being transferred to CT at this time. FLEXOGRAPHIC PRESS PLATE SETTER bedside for support. plan of care ongoing. call andino placed within reach.
[2024-11-08 10:48] LABS: Alanine Aminotransferase 32 U/L (0-31); Albumin Level 4.0 g/dL (3.5-5.0); Alkaline Phosphatase 72 U/L (39-117); Anion Gap 13 (12-20); Aspartate Amino Transferase 42 U/L (5-31); Blood Urea Nitrogen 20 mg/dL (9-16); Calcium 8.9 mg/dL (8.4-10.2); Carbon Dioxide 25 mmol/L (22-29); Chloride 107 mmol/L (96-108); Creatinine Clr Calc Pharmacy 47.3; Estimated Glomerular Filt Rate 50; Magnesium 2.1 mg/dL (1.6-2.6); Potassium 5.0 mmol/L (3.3-5.1); Sodium 140 mmol/L (135-145); Total Protein 6.6 g/dL (6.5-8.0)
[2024-11-08 10:54] LABS: Troponin-I High Sensitivity 7.3 ng/L (<3.5-17.0)
--- NOTE | 2024-11-08 11:22 | PC.NURSE ---
patient verbalizing generalized pain throughout - requesting medication. provider notified/aware. medication administered per provider order. effectiveness pending.
[2024-11-08 11:29] LABS: INTERNATIONAL NORM RATIO 0.8 (0.9-1.1); Prothrombin Time 9.5 SEC (10.9-12.4)
[2024-11-08 11:31] LABS: Partial Thromboplastin Time 26.7 SEC (26.0-36.8)
--- NOTE | 2024-11-08 11:31 | PC.NURSE ---
verbal update provided to patient's primary contact (gerhard daniel) at this time.
--- NOTE | 2024-11-08 12:20 | PC.NURSE ---
3 sutures applied to right inner upper lip. dermabond applied to bridge of nose/forehead. sugar tong splint applied to LUE. 4th right finger dislocation recorrected. all interventions performed by . swabs obtained/sent to lab. pt is now PT/CM d/t living at home independently.
[2024-11-08 13:04] LABS: Resp Syncy Virus RNA Qual PCR NEGATIVE (Negative); SARS COV2 PCR INHOUSE NEGATIVE (Negative)
--- NOTE | 2024-11-08 14:03 | PC.NURSE ---
pt verbalizing she has to use the restroom - bed licona utilized. large amount of urine noted upon output. pericare performed. pt turned/repositioned to comfort. repeat xray s/p reduction displays 4th digit finger has improved. finger splint applied w/ willie bandage.
[2024-11-08] MEDS: oxyCODONE HCl Immed Release 5 MG TABLET PO (15:38)
--- NOTE | 2024-11-08 15:55 | PC.NURSE ---
patient verbalizing increase in generalized pain throughout. provider notified/aware. medication administered per provider order. effectiveness pending. vitals obtained/wnl aside from being hypertensive. provider notified/aware. per pharmacy, pharmacy will complete med rec when able. pt currently pending transfer to [facility] at this time.
--- NOTE | 2024-11-08 16:02 | PC.NURSE ---
report given to AALIYAH Lima in overflow at this time.
--- NOTE | 2024-11-08 22:22 | MHC.CM.ED ---
CMmet with patient to discuss discharge planning. crew truck driver used, as patient is Mosotho speaking. Pt lives alone. Uses a cane and walker. Has SUPERVISOR MIXING from [employer] daily 11-19 and 06-23 and 11-29. Friday SUPERVISOR MIXING only makes breakfast. Pt feel on [facility] after appointment and sustained L wrist fx. Face, forehead and bilateral eye orbits very ecchymotic. Lip edematous with sutures. PT recommends STR. Pt is agreeable. Pt declines [facility]. Agreeable to local referrals. PCP is Pascual Terry. Address and insurance confirmed. HCP on file. CM made local referrals. Pt has [employer] insurance.
[2024-11-09 03:16] LABS: Glucose, Whole Blood 250 mg/dL (60-115)
[2024-11-09 06:00] VITALS: BP 152/80; PULSE 120; RESP 20; TEMP 36.1; O2SAT 94
[2024-11-09 08:12] LABS: Glucose, Whole Blood 283 mg/dL (60-115)
[2024-11-09] MEDS: Morphine Sulfate Immed Release 15 MG TABLET PO ×2 (08:26→19:49)
--- NOTE | 2024-11-09 10:52 | PC.NURSE ---
Addendum entered by Oliver Hassan RN 11/09/24 16:25: glucometer reading 146 Addendum entered by Oliver Hassan RN 11/09/24 11:20: pt sugar is 322 Original Note: pt refusing POCs stating her glucometer device that checks her sugar is accurate and working. this RN will document sugar listed on device prior to insulin administration. pt was educated on [facility] policy. highway maintenance worker at bedside for med pass, assessment and care. informed of pt's pain and nausea.
[2024-11-09 11:29] VITALS: BP 144/75; PULSE 123; RESP 19; TEMP 37.1; O2SAT 92
--- NOTE | 2024-11-09 12:19 | MHC.CM.ED ---
Patient remains in ER. PT rec STR. [facility], [facility], [facility], [facility], [facility] and [facility] are able to offer a bed. Other facilities are still reviewing. 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 [facility] is 1st choice. [facility] made aware and is in the process of obtaining ins auth. Continue to monitor for d/c needs.
--- NOTE | 2024-11-09 15:26 | MHC.CM.ED ---
[facility] has obtained insurance auth. Patient can leave tomorrow at 9am. Marilin HUNT booked. Med nec with chart. Patient, son Oliver Rick RN and Vielka FINN aware. Continue to monitor for d/c needs.
--- NOTE | 2024-11-09 16:34 | PHA.MEDREC ---
Addendum entered by Isaiah Dimas, [facility] 11/09/24 16:47: Med rec reviewed Original Note: Pharmacy Consult ? Medication Reconciliation Pharmacy has completed the medication reconciliation. Utilized algebraist services. Patient confirmed all meds when we read down the list together. Pt confirmed the Actemra once every 2 weeks and confirmed she is due for it tomorrow. Pt confirmed she is taking an Insulin Fiasp TIDAC and injects via a sliding scale and Tresiba FlexTouch 18 units daily. She confirmed her Psychologist just increased her Venlafaxine from 37.5mg once daily to 75mg once daily. Pt states she is taking Magnesium OTC but doesn't remember the dose at this time.
[2024-11-09 18:39] VITALS: BP 102/56; PULSE 114; RESP 12; TEMP 36.3; O2SAT 98
--- NOTE | 2024-11-09 19:55 | PC.NURSE ---
Utilizing hospital auto damage appraiser, explained to patient that we need to check her blood sugar, if she will let us, so that the level will appear in the medical record. Pt has a dexcom and the POC read 302. Big Data Platform Architect checked sugar and it is 239. Pt medicated per sliding scale using hospital acquired blood sugar.
[2024-11-09 19:57] LABS: Glucose, Whole Blood 239 mg/dL (60-115)
--- NOTE | 2024-11-09 20:31 | MHC.EDTECH ---
400 mL of yellow urine emptied from [facility] canister
[2024-11-10 01:02] VITALS: BP 191/91; PULSE 115; RESP 16; TEMP 36.3; O2SAT 92
[2024-11-10] MEDS: Morphine Sulfate Immed Release 15 MG TABLET PO ×2 (01:07→07:41)
[2024-11-10 03:13] VITALS: BP 140/58; PULSE 114; RESP 16; O2SAT 93
[2024-11-10 03:46] VITALS: PULSE 113; TEMP 36.6; O2SAT 95
[2024-11-10 07:30] LABS: Glucose, Whole Blood 303 mg/dL (60-115)
[2024-11-10 07:32] VITALS: BP 169/72; PULSE 88; RESP 18; TEMP 36.1; O2SAT 92
[2024-11-10 09:58] VITALS: BP 169/72; PULSE 88; RESP 18; TEMP 36.1; O2SAT 92
== END 2024-11-10 09:59 ==
PROVIDERS: Emergency Medicine; Emergency Provider Internal Medicine; PCP Internal Medicine
DX: S02.2XXA Fracture of nasal bones, initial encounter for closed fracture (principal); S09.90XA Unspecified injury of head, initial encounter; S00.83XA Contusion of other part of head, initial encounter; S62.102A Fracture of unspecified carpal bone, left wrist, initial encounter for closed fracture; S63.284A Dislocation of proximal interphalangeal joint of right ring finger, initial encounter; S01.512A Laceration without foreign body of oral cavity, initial encounter; S01.21XA Laceration without foreign body of nose, initial encounter; W18.39XA Other fall on same level, initial encounter; D50.9 Iron deficiency anemia, unspecified; R79.1 Abnormal coagulation profile; Y93.89 Activity, other specified; Y92.238 Other place in hospital as the place of occurrence of the external cause; Y99.8 Other external cause status; Z03.818 Encounter for observation for suspected exposure to other biological agents ruled out; E10.9 Type 1 diabetes mellitus without complications; I10 Essential (primary) hypertension; E78.5 Hyperlipidemia, unspecified; I25.2 Old myocardial infarction; M05.9 Rheumatoid arthritis with rheumatoid factor, unspecified; R29.6 Repeated falls; Z91.81 History of falling; Z98.84 Bariatric surgery status; Z79.4 Long term (current) use of insulin
CPT/HCPCS: 12013; 26770; 29125; 36415; 64450; 70450; 72125; 73110; 73130; 80053; 82947; 83735; 84484; 85025; 85610; 85730; 87637; 93005; 96374; 97162; 99285; J2003; J2270

== ENCOUNTER → 2024-11-08 10:17 | Outpatient (BNV) | payer OTHER, SELFPAY | PROVIDERS: Emergency Provider Emergency Medicine; Visit Provider Radiology Diagnostic Radiology | DX: S09.90XA Unspecified injury of head, initial encounter (principal); S52.222A Displaced transverse fracture of shaft of left ulna, initial encounter for closed fracture; S52.572A Other intraarticular fracture of lower end of left radius, initial encounter for closed fracture; R22.31 Localized swelling, mass and lump, right upper limb; M11.241 Other chondrocalcinosis, right hand; M19.041 Primary osteoarthritis, right hand; S63.285A Dislocation of proximal interphalangeal joint of left ring finger, initial encounter | CPT/HCPCS: 70450; 72125; 73110; 73130 ==

== ENCOUNTER → 2024-11-08 10:25 | Outpatient (BNV) | payer OTHER, SELFPAY | PROVIDERS: Emergency Provider Emergency Medicine; Visit Provider Internal Medicine Cardiovascular Disease | DX: Z13.6 Encounter for screening for cardiovascular disorders (principal); W19.XXXA Unspecified fall, initial encounter | CPT/HCPCS: 93010 ==

== ENCOUNTER 2024-11-12 15:18 | Emergency (ER) | payer OTHER, SELFPAY ==
[2024-11-12 15:30] LABS: Glucose, Whole Blood 306 mg/dL (60-115)
[2024-11-12 15:33] VITALS: BP 117/59; PULSE 92; PULSE 95; RESP 16; TEMP 37.2; O2SAT 97; BMI 28.1
--- OUTSIDE RECORDS SUMMARY | 2024-11-12 16:13 | XMS_ITS | Data Portability ---
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 Plan of Treatment Reminders Order Date Submit Date Provider Last Modified By Organization Details Last Modified Time Details Appointments None recorded. Lab None recorded. Referral None recorded. Procedures None recorded. Surgeries None recorded. Imaging None recorded. Medication Orders oxycodone 5 mg tablet 2023 024 [facility] , [address] [place] [address], [address], 4 21:23:28 oxycodone 5 mg tablet 2023 024 [facility] , [address] [place] [address], [address], 4 13:28:18 Patient TargetsNo targets recorded. Patient InstructionsNo instructions recorded. Reason for Referral None Reported. 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 4 15:51:24 Rheumatoid arthritis 81201836 Active 2023 Dori Pena NP [address], [address], [place], [address], [employer] 4 15:51:29 Mixed anxiety and depressive disorder 592924077 Active 2023 Dori Pena NP [address], [address], [place], [address], [facility] 4 15:51:45 Obesity 804821546 Active 2023 Dori Pena NP [address], [address], [place], [address], [facility] 4 15:51:51 Closed flail chest 199108195 Active 2023 Dori Pena NP [address], [address], [place], [address], [facility] 4 15:52:35 Asthenia 73138155 Active 2023 Dori Pena NP [address], [address], [place], [address], [facility] 4 15:52:46 Irritable bowel syndrome 77543478 Active 2023 Dori Pena NP [address], [address], [place], [address], [facility] 4 16:06:46 Recurrent falls 667304360 Active 2023 Dori Pena NP [address], [address], [place], [address], [facility] 4 16:38:03 Problem Notes None recorded. Procedures Surgical History Date Name Laterality Status Provider Name and Address Organization Details Recorded Time bypass gastroenterostomy completed Dori Pena NP [address], [address], [place], [address], [facility] 09/17/2023 15:40:41 Laparoscopic cholecystectomy completed Dori Pena NP [address], [address], [place], [address], [facility] 09/17/2023 15:41:25 fixed suspension procedure of urinary bladder neck completed Dori Pena NP [address], [address], [place], [address], [facility] 09/17/2023 15:42:01 Appendectomy completed Dori Pena NP [address], [address], [place], [address], [facility] 09/17/2023 15:42:11 bilateral cataract surgery completed Dori Pena NP [address], [address], [place], [address], [facility] 09/17/2023 15:42:26 Imaging Results None recorded. Procedure Notes None recorded. Medical Equipment None Reported. Allergies Allergen ID Allergen Name Allergen Category Reaction Reaction Severity Criticality Documentation Date Start Date Code Code System Note Provider Name and Address Organization Details Recorded Time 82118 celecoxib medicatio n other Not available unabletoasse 09/17/2023 29471 7 RxNorm unkno wn Dori Pena NP [address], [address], [place], [address], [facility] 4 15:37:14 93348 lorazepam medicatio n other Not available unabletoasse 09/17/2023 6470 RxNorm unkno wn Dori Pena NP [address], [address], [place], [address], [facility] 4 15:37:29 57309 tramadol medicatio n other Not available unabletoasse 09/17/2023 42185 RxNorm unkno wn Dori Pena NP [address], [address], [place], [address], [employer] 4 15:37:42 06897 zolpidem medicatio n other Not available unabletoasse 09/17/2023 36470 RxNorm unkno wn Dori Pena NP [address], [address], [place], [address], [employer] 4 15:37:56 Medications Name Sig Start Date [...] Address Organization Details Last Updated DateTime 4 31433.7 8 g 98 /min 18 /min 97.8 [degF] 94 % 94 % 150/77 mm[Hg] Dori Pena NP [address], [address], [place], [address], [employer] 4 10:49:41 Date Recorded Body weight Heart rate Respiratory rate Body temperature Oxygen saturation Oxygen saturation in Arterial blood by Pulse oximetry Systolic And Diastolic Provider Name and Address Organization Details Last Updated DateTime 4 38741.7 8 g 83 /min 18 /min 97 [degF] 98 % 98 % 148/74 mm[Hg] Dori Pena NP [address], [address], [place], [address], [facility] 4 13:29:12 Date Recorded Body weight Heart rate Respiratory rate Body temperature Oxygen saturation Oxygen saturation in Arterial blood by Pulse oximetry Systolic And Diastolic Provider Name and Address Organization Details Last Updated DateTime 4 20708.7 8 g 76 /min 18 /min 97.8 [degF] 97 % 97 % 128/78 mm[Hg] Dori Pena NP [address], [address], [place], [address], [facility] 4 12:05:35 Date Recorded Body weight Heart rate Respiratory rate Body temperature Oxygen saturation Oxygen saturation in Arterial blood by Pulse oximetry Systolic And Diastolic Provider Name and Address Organization Details Last Updated DateTime 4 45195 g 80 /min 18 /min 98 [degF] 95 % 95 % 111/60 mm[Hg] Dori Pena NP [address], [address], [place], [address], [facility] 4 11:40:36 Date Recorded Body weight Heart rate Respiratory rate Body temperature Oxygen saturation Oxygen saturation in Arterial blood by Pulse oximetry Systolic And Diastolic Provider Name and Address Organization Details Last Updated DateTime 4 30393 g 74 /min 18 /min 98.4 [degF] 95 % 95 % 124/68 mm[Hg] Dori Pena NP [address], [facility] [address], [place], [address], [facility] 4 13:12:09 Social History Question Answer Notes LastModified by [email or web address] Details LastModified Time Tobacco Smoking Status Never Smoker Dori Pena NP [address], [facility] [address], [place], [address], [facility] 09/17/2023 15:39:38 Do You Have An [...] Functional Status Question Answer Note LastModified by [email or web address] Details LastModified Time Do you use any [...] (RSV) vaccine, unspecified 4 completed Radha Jerman [facility] 09/19/2023 16:11:12 Tdap 4 completed [facility] 09/19/2023 16:11:26 Td(adult) unspecified formulation 3 completed [facility] 09/19/2023 16:11:43 Td(adult) unspecified formulation 3 completed [facility] 09/19/2023 16:11:51 Pneumococcal conjugate PCV 13 6 completed [facility] 09/19/2023 16:12:53 Pneumococcal conjugate PCV20, polysaccharide HCM813 conjugate, adjuvant, PF 4 completed [facility] 09/19/2023 16:13:07 pneumococcal polysaccharide PPV23 1 completed [facility] 09/19/2023 16:13:22 pneumococcal polysaccharide PPV23 4 completed [facility] 09/19/2023 16:13:31 influenza, unspecified formulation 2 completed [facility] 09/19/2023 16:13:47 influenza, unspecified formulation 3 completed [facility] 09/19/2023 16:13:55 MMR 8 completed [facility] 09/19/2023 16:14:21 SARS-COV-2 (COVID-19) vaccine, UNSPECIFIED 1 completed Radha Stoll [facility] 09/19/2023 16:15:58 SARS-COV-2 (COVID-19) vaccine, UNSPECIFIED 1 completed Radha Stoll [facility] 09/19/2023 16:16:13 SARS-COV-2 (COVID-19) vaccine, UNSPECIFIED 1 completed Radha Stoll [facility] 09/19/2023 16:16:27 SARS-COV-2 (COVID-19) vaccine, UNSPECIFIED 2 completed Radha Stoll [facility] 09/19/2023 16:17:15 SARS-COV-2 (COVID-19) vaccine, UNSPECIFIED 2 completed Radha [facility] 09/19/2023 16:21:38 zoster, unspecified formulation 5 completed Radha [facility] 09/19/2023 16:23:04 zoster, unspecified formulation 9 completed Radha [facility] 09/19/2023 16:23:18 zoster, unspecified formulation 9 completed [facility] 09/19/2023 16:25:18 Past Encounters Encounter ID Performer Location Encounter Start Date Encounter Closed Date Diagnosis/Indication Diagnosis SNOMED-CT Code Diagnosis ICD10 Code Diagnosis Note [id number] Dori Pena NP [address] [address] 09/17/2023 15:22:09 09/23/2023 14:50:24 Closed flail chest 494602152 S22.5XXD with multiple rib fractures and clavicular [...] If stable no further workup needed. Asthenia 85758206 R53.1 with notable weakness due to injuryPT OT eval and treatsuppo rtive caremonito r Type 1 frank betes mellitus 92353519 E10.9 tresiba 30 unit sc qhsinsulin 2-14 SSI sc qidhsmonit or BS and adjust as needed Hypertensive disorder 38 450529 I10 not on meds for thisamlodi pine 10 mg po dailylosar zaragoza 100 mg po dailymonit or bp/vitals 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 343205 E06.3 levothyrox ine 112 mcg dailymonit or tsh as needed Gastroesop hageal reflux disease 053405316 K21.9 esomeprazo le 40 mg o daily Obesity 140923284 E66.9 inspector set up and lay out to consultsup portive careportio n controlmon itor weight Mixed anxi ety and depressive disorder 197531399 F41.8 aripiprazo le 20 mg dailyvenla faxine 150 mg po dailyprazo sin 6 mg po qhsmelaton in 3 mg po qhshydroxy zine 10 mg po q 8 hours prn anxietyclo nazepam 0.5 mg po q 8 hours prn anxietycar vedilol 6.25 mg po bidmonitor Rheumatoid arthritis 698 52910 M06.9 enbrel 50 mg sc q 7dayscalci um citrate 400 mg po bidmonitor for reliefsee pain management above with flail chest Irritable bowel syndrome 77324209 K58.9 ? IBSlinzess 290 mcg q ammonitor Deficiency anemias 65754 3007 D53.9 folic acidvit [id number] Coronary arteriosclerosis 13007801 I25.10 hx of MIatorvast atin 20 mg po dailyclopi dogrel 75 mg po q amsee above htn medsmonito r Recurrent falls 45083815 2 R29.6 reports history of falls with doctor of medicine at home to help her and balance issuesrepo rts more than 5 falls/year supportive caremonito r [id number] JESSICA HINDS, AAKASH [address] [address] [place] [address] 09/18/2023 13:29:08 09/23/2023 15:13:15 Closed flail chest 702812345 S22.5XXD with multiple rib fractures and clavicular [...] If stable no further workup needed. Asthenia 03720239 R53.1 with notable weakness due to injuryPT OT eval and treatsuppo rtive caremonito r Type 1 frank betes mellitus 71726216 E10.9 A1C 8.8%Contin eu:tresiba 30 unit sc qhsinsulin 2-14 SSI sc qidmonitor BS and adjust as needed Hypertensive disorder 38 417312 I10 amlodipine 10 mg po dailylosar zaragoza 100 mg po dailycoreg 6.25 mg bidmonitor bp/vitals 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 128862 E06.3 levothyrox ine 112 mcg dailymonit or tsh as needed Gastroesop hageal reflux disease 357278611 K21.9 esomeprazo le 40 mg o daily Deficiency anemias 16158 3007 D53.9 folic acidvit t00mzystuh Obesity 632267160 E66.9 inspector set up and lay out to consultsup portive careportio n controlmon itor weight Mixed anxi ety and depressive disorder 366310750 F41.8 aripiprazo le 20 mg dailyvenla faxine 150 mg po dailyprazo sin 6 mg po qhsmelaton in 3 mg po qhshydroxy zine 10 mg po q 8 hours prn anxietyclo nazepam 0.5 mg po q 8 hours prn anxietymon itor Rheumatoid arthritis 698 74718 M06.9 enbrel 50 mg sc q 7dayscalci um citrate 400 mg po bidmonitor for reliefsee pain management above with flail chest Irritable bowel syndrome 25574440 K58.9 ? IBSlinzess 290 mcg q ammonitor Coronary arteriosclerosis 75236902 I25.10 hx of MIatorvast atin 20 mg po dailyclopi dogrel 75 mg po q amsee above htn medsmonito r Recurrent falls 43975536 2 R29.6 reports history of falls with doctor of medicine at home to help her and balance issuesrepo rts more than 5 falls/year supportive caremonito r [id number] Dori Pena NP [address] [address] 09/22/2023 14:27:57 09/29/2023 19:16:34 Closed flail chest 464793821 S22.5XXD with multiple rib fractures and clavicular [...] If stable no further workup needed. Asthenia 02486519 R53.1 with notable weakness due to injuryPT OT eval and treatsuppo rtive caremonito r Type 1 frank betes mellitus 31688989 E10.9 BS 81-252 lupngpT1I 8.8%contin ue:tresiba 30 unit sc qhsinsulin 2-14 SSI sc qidmonitor BS and adjust as needed Hypertensive disorder 38 530803 I10 improving lately, boderline highcontam lodipine 10 mg po dailylosar zaragoza 100 mg po dailycoreg 6.25 mg bidmonitor bp/vitals 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 738413 E06.3 contlevoth yroxine 112 mcg dailymonit or tsh as needed Gastroesop hageal reflux disease 964723718 K21.9 esomeprazo le 40 mg o daily Deficiency anemias 21726 3007 D53.9 folic acidvit o11xhjbmsn Obesity 070819059 E66.9 inspector set up and lay out to consultsup portive careportio n controlmon itor weight Mixed anxi ety and depressive disorder 456377325 F41.8 contaripip razole 20 mg dailyvenla faxine 150 mg po dailyprazo sin 6 mg po qhsmelaton in 3 mg po qhshydroxy zine 10 mg po q 8 hours prn anxietyclo nazepam 0.5 mg po q 8 hours prn anxietymon itor Rheumatoid arthritis 698 44548 M06.9 enbrel 50 mg sc q 7dayscalci um citrate 400 mg po bidmonitor for reliefsee pain management above with flail chest Irritable bowel syndrome 74780301 K58.9 ? IBSlinzess 290 mcg q ammonitor Coronary arteriosclerosis 58787589 I25.10 hx of MIatorvast atin 20 mg po dailyclopi dogrel 75 mg po q amsee above htn medsmonito r Recurrent falls 37774279 2 R29.6 reports history of falls with doctor of medicine at home to help her and balance issuesrepo rts more than 5 falls/year supportive caremonito r Acute cystitis 67935495 N30.00 reports dysuria and occassiona l incontinen ce latelyurin e culture returned showing > 100,000 klebsiella pneumo ssp and started on ceftriaxon e 1gram IM and cefpodoxim e 200 mg po bid x 7 days with probiotic by on provider over the weekend.mo nitor [id number] Jonel Alamo MD [facility] [address] 09/23/2023 11:01:43 09/29/2023 19:25:59 Closed fracture of multiple left ribs 9586690262 8732865 S22.42XG see HPIleft rib fxs 2-6 with concern for flail chest , with clavicular fxeval by surgery with no interventi on indicatedm onitor respirator y statusutil ize incentive spirometer monitor for pain controlupd ate surgery with concerns Asthenia 80861072 R53.1 PT OT eval and treatmonit or need for increased support in community Type 1 frank betes mellitus 96491347 E10.9 tresiba 30 units qdSS insulinmon itor glucose and need to titrate Hypertensive disorder 38 779735 I10 norvasc 10 mg qdcoreg 6.25 mg bidlosarta n 100 mg qdcurrentl y elevatedmo nitor need for increased control 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 110159 E06.3 hx of added to PMHmaintai priscilla onsynthroi d 112 mcg qdmonitor tsh prn Gastroesop hageal reflux disease 727208609 K21.9 nexium 40 mg qd continuedm onitor for effect Obesity 454709062 E66.09 dietary eval in patient with baseline DM Mixed anxi ety and depressive disorder 521163296 F41.8 carrying dx requiring multiple medication swill continue out patient medication s includinga bility and ativanmoni tor moodpsych eval prn Rheumatoid arthritis 698 23111 M06.9 remains onenbrel 50 mg q friday Irritable bowel syndrome 69128865 K58.9 ? IBSlinzess 290 mcg q ammonitor Coronary arteriosclerosis 02041321 I25.10 hx of MIatorvast atin 20 mg po dailyclopi dogrel 75 mg po q amsee above htn medsmonito r Recurrent falls 13664620 2 R29.6 reports history of falls with doctor of medicine at home to help her and balance issuesrepo rts more than 5 falls/year supportive caremonito r Solitary n odule of lung 950221260 R91.1 question right 4 mm upper lobe nodulecons ider repeat scan in 6-12 months Primary insomnia 9870566 F51.01 continue melatoninm onitor need to titrate Abnormal weight loss 267 622302 R63.4 weight dropped > 12 lbs in a few days from admitappea rs to be error in initial intake weightwill monitor Acute cystitis 12782742 N30.00 now on cefpodoxim e to complete coursemoni tor for recurrent disease [id number] Dori Pena NP [address] [address] 09/24/2023 09:21:20 09/29/2023 19:39:42 Closed fracture of multiple left ribs 2164130933 9833345 S22.42XG with multiple rib fractures and clavicular [...] in am off pmadjust as needed. Asthenia 40752131 R53.1 PT OT eval and treatmonit or need for increased support in community Type 1 frank betes mellitus 23027664 E10.9 BS controlled conttresib a 30 units qdSS insulinmon itor glucose and need to titrate Hypertensive disorder 38 123158 I10 stable on below regimennor vasc 10 mg qdcoreg 6.25 mg bidlosarta n 100 mg qdcurrentl y elevatedmo nitor need for increased control 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 580044 E06.3 hx of added to PMHmaintai priscilla onsynthroi d 112 mcg qdmonitor tsh prn Gastroesop hageal reflux disease 210046539 K21.9 nexium 40 mg qd continuedm onitor for effect Obesity 489770243 E66.09 dietary eval in patient with baseline DM Rheumatoid arthritis 698 93846 M06.9 remains onenbrel 50 mg q friday Irritable bowel syndrome 74264496 K58.9 ? IBSlinzess 290 mcg q ammonitor Coronary arteriosclerosis 36158644 I25.10 hx of MIatorvast atin 20 mg po dailyclopi dogrel 75 mg po q amsee above htn medsmonito r Recurrent falls 26478162 2 R29.6 reports history of falls with doctor of medicine at home to help her and balance issuesrepo rts more than 5 falls/year supportive caremonito r Primary insomnia 5858901 F51.01 continueme latoninmon itor need to titrate Abnormal weight loss 267 653282 R63.4 weight dropped > 12 lbs in a few days from admitappea rs to be error in initial intake weight6/5 reweigh pt todaywill monitor Acute cystitis 85111918 N30.00 now on cefpodoxim e to complete courseaysm ptomaticmo nitor for recurrent disease [id number] Dori Pena NP [facility] [address] [address] 09/29/2023 10:39:23 10/03/2023 11:24:38 Closed fracture of multiple left ribs 5995096247 7661566 S22.42XG with multiple rib fractures and clavicular [...] to left shoulderad just as needed. Asthenia 73639761 R53.1 PT OT eval and treatmonit or need for increased support in community Type 1 frank betes mellitus 29788582 E10.9 BS controlled conttresib a 30 units qdSS insulinmon itor glucose and need to titrate Hypertensive disorder 38 435755 I10 stable on below regimen with slightly high bp likley related to pain, monitorcon tnorvasc 10 mg qdcoreg 6.25 mg bidlosarta n 100 mg qdcurrentl y elevatedmo nitor need for increased control 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 115461 E06.3 hx of added to PMHmaintai priscilla onsynthroi d 112 mcg qdmonitor tsh prn Gastroesop hageal reflux disease 229574365 K21.9 contnexium 40 mg qdmonitor for effect Obesity 032245737 E66.09 dietary evalbaseli ne DMweight today please Rheumatoid arthritis 698 59164 M06.9 remains onenbrel 50 mg q friday Irritable bowel syndrome 99457105 K58.9 ? IBSlinzess 290 mcg q ammonitor Coronary arteriosclerosis 65426873 I25.10 hx of MIatorvast atin 20 mg po dailyclopi dogrel 75 mg po q amsee above htn medsmonito r Recurrent falls 97310430 2 R29.6 reports history of falls with doctor of medicine at home to help her and balance issuesrepo rts more than 5 falls/year supportive caremonito r Primary insomnia 1834057 F51.01 continueme latoninmon itor need to titrate Abnormal weight loss 267 849711 R63.4 weight dropped > 12 lbs in a few days from admitappea rs to be error in initial intake weight6/10 reweigh pt todaywill monitor Acute cystitis 62831365 N30.00 resolved cefpodoxim e to complete courseaysm ptomaticmo nitor for recurrent disease Mixed anxi ety and depressive disorder 955354839 F41.8 contaripip razole 20 mg dailyvenla faxine 150 mg po dailyprazo sin 6 mg po qhsmelaton in 3 mg po qhshydroxy zine 10 mg po q 8 hours prn anxiety6/1 0 renew clonazepam 0.5 mg po q 8 hours prn anxietymon itor [id number] [facility] [address] [place] [address] 10/02/2023 13:28:32 10/07/2023 10:08:18 Hypertensive disorder 39813512 I10 stable on below regimen as it comes down to 120s systolic post medication contnorvas c 10 mg qdcoreg 6.25 mg bidlosarta n 100 mg qdmonitor need for increased control Closed fra cture of multiple left ribs 6813335098 4080098 S22.42XG with left rib fxs 2-6 with [...] OT eval and txadjust as needed. Asthenia 07543290 R53.1 PT OT eval and treatmonit or need for increased support in community Type 1 frank betes mellitus 99217376 E10.9 BS controlled glucernaco nttresiba 30 units qdSS insulinmon itor glucose and need to titrate Gastroesop hageal reflux disease 962718849 K21.9 contnexium 40 mg qdmonitor for effect Rheumatoid arthritis 698 28286 M06.9 remains onenbrel 50 mg q friday Irritable bowel syndrome 87570824 K58.9 ? IBSlinzess 290 mcg q ammonitor Coronary arteriosclerosis 53549068 I25.10 hx of MIcoreg 6.25 mg po bidatorvas tatin 20 mg po dailyclopi dogrel 75 mg po q amsee above htn medsmonito r Recurrent falls 50926614 2 R29.6 reports history of falls with doctor of medicine at home to help her and balance issuesrepo rts more than 5 falls/year supportive care and therapy here for balance, strengthen ing, gait, mobility, endurancem onitor Abnormal weight loss 267 755242 R63.4 weight dropped > 12 lbs in a few days from admitappea rs to be error in initial intake weight09/28 reweigh pt today10/01 reweight pt today, no weight since 09/21will monitor Mixed anxi ety and depressive disorder 703434807 F41.8 contaripip razole 20 mg dailyvenla faxine 150 mg po dailyprazo sin 6 mg po qhsmelaton in 3 mg po qhshydroxy zine 10 mg po q 8 hours prn anxiety09/19 0 renew clonazepam 0.5 mg po q 8 hours prn anxiety x 14 days10/01 cont as abovemonit or [id number] Dori ePna NP [facility] [address] 10/06/2023 12:02:36 10/09/2023 09:34:42 Closed fracture of multiple left ribs 1291068519 2238236 S22.42XG with left rib fxs 2-6 with [...] txadjust as needed. Abnormal weight loss 267 395061 R63.4 weight dropped > 12 lbs in a few days from admitappea rs to be error in initial intake weight10/04 160 lbs which is same as 09/22/23will monitor Hypertensive disorder 38 870051 I10 stable on below regimen as it comes down to 120s systolic post medication contnorvas c 10 mg qdcoreg 6.25 mg bidlosarta n 100 mg qdmonitor need for increased control Asthenia 11187318 R53.1 PT OT eval and treatmonit or need for increased support in community Type 1 frank betes mellitus 01407675 E10.9 pt having syrup and gingerale at [...] and need to titrate Rheumatoid arthritis 698 26425 M06.9 remains onenbrel 50 mg q friday Irritable bowel syndrome 51579228 K58.9 with constipati on today, states many days10/05 mon given today, will do supp if no bm by 4 pm10/05 start senna 8.6 mg po daily? IBSlinzess 290 mcg q ammonitor Coronary arteriosclerosis 81806402 I25.10 hx of MIcoreg 6.25 mg po bidatorvas tatin 20 mg po dailyclopi dogrel 75 mg po q amsee above htn medsmonito r Mixed anxi ety and depressive disorder 993697061 F41.8 contaripip razole 20 mg dailyvenla faxine 150 mg po dailyprazo sin 6 mg po qhsmelaton in 3 mg po qhshydroxy zine 10 mg po q 8 hours prn anxiety6/1 0 renew clonazepam 0.5 mg po q 8 hours prn anxiety x 14 days10/01 cont as above10/05 stable today with above planmonito r [id number] [facility] [address] 10/08/2023 11:40:06 10/15/2023 15:50:32 Type 1 diabetes mellitus 64253680 E10.9 pt having syrup and gingerale at [...] and need to titrate Irritable bowel syndrome 89782519 K58.9 with constipati on resolved with mom on 7 fri given today10/05 start senna 8.6 mg po daily? IBSlinzess 290 mcg q am10/07 having bm regularly nowmonitor Closed fra cture of multiple left ribs [id number] S22.42XG with left rib fxs 2-6 with [...] txadjust as needed. Abnormal weight loss 267 459461 R63.4 weight dropped > 12 lbs in a few days from admitappea rs to be error in initial intake weight10/04 160 lbs which is same as 09/22/23, ? incorrect admit weight but seems stable nowmsll monitor Hypertensive disorder 38 416076 I10 stable on below regimen as it comes down to 120s systolic post medication contnorvas c 10 mg qdcoreg 6.25 mg bidlosarta n 100 mg qdmonitor need for increased control Asthenia 14142419 R53.1 PT OT eval and treatmonit or need for increased support in community Rheumatoid arthritis 698 67829 M06.9 remains onenbrel 50 mg q friday Coronary arteriosclerosis 73103446 I25.10 hx of MIcoreg 6.25 mg po bidatorvas tatin 20 mg po dailyclopi dogrel 75 mg po q amsee above htn medsmonito r Mixed anxi ety and depressive disorder [id number] F41.8 contaripip razole 20 mg dailyvenla faxine 150 mg po dailyprazo sin 6 mg po qhsmelaton in 3 mg po qhshydroxy zine 10 mg po q 8 hours prn anxiety09/19 0 renew clonazepam 0.5 mg po q 8 hours prn anxiety x 14 days10/01 cont as above10/05 stable today with above plan10/07 stable today with above planmonito r Hyperkalemia 41577327 E8 7.5 k of 5.7 on give kayexalate 15 gm today10/08 bmp in ammonitor for additional e lyte abbormalit ies [id number] Dori Pena NP [address] [place] [address] 10/09/2023 13:08:06 10/15/2023 16:27:22 Closed fracture of multiple left ribs [id number] S22.42XG resolving with left rib fxs 2-6 [...] prnadjust as needed outpt with pcp Hyperkalemia 84310467 E8 7.5 k of 5.7 on give kayexalate 15 gm on 10/07monito r for additional e lyte abnormalit ies outpt with pcp Type 1 frank betes mellitus 78538218 E10.9 BS slightly high while at rehab with eating sugary foods/drin ksPlan: diet sodas and diet syrup and less sugary choicescon tglucernat resiba 30 units qdSS insulin with meals as per home schedmonit or glucose and need to titrate outpt with pcp outpt Irritable bowel syndrome 18079147 K58.9 with constipati on resolvedse nna 8.6 mg po daily (started at rehab)? IBSlinzess 290 mcg q ammonitor with pcp outpt Abnormal weight loss 267 071070 R63.4 weight dropped > 12 lbs in a few days from admitappea rs to be error in initial intake weight10/04 160 lbs which is same as 09/22/23, ? incorrect admit weight but seems stable nowmonitor oupt with pcp Hypertensive disorder 38 389675 I10 stable on below regimen as it comes down to 120s systolic post medication contnorvas c 10 mg qdcoreg 6.25 mg bidlosarta n 100 mg qdmonitor need for increased control outpt with pcp Asthenia [id number] R53.1 PT OT eval and treat outpt prnmonitor need for increased support in community with pcp Rheumatoid arthritis 698 43328 M06.9 remains onenbrel 50 mg q fridaymoni tor outpt with pcp Coronary arteriosclerosis 69179966 I25.10 hx of MIcoreg 6.25 mg po bidatorvas tatin 20 mg po dailyclopi dogrel 75 mg po q amsee above htn medsmonito r outpt wtih pcp Mixed anxi ety and depressive disorder 907462420 F41.8 contaripip razole 20 mg dailyvenla faxine 150 mg po dailyprazo sin 6 mg po qhsmelaton in 3 mg po qhshydroxy zine 10 mg po q 8 hours prn anxietyclo nazepam 0.5 mg po q 8 hours prn anxietymon itor outpt with pcp Gastroesop hageal reflux disease 940062072 K21.9 contnexium 40 mg qdmonitor for effect outpt with pcp Recurrent falls 63265897 2 R29.6 reports history of falls with doctor of medicine at home to help her and balance issuesrepo rts more than 5 falls/year supportive care and therapy here for balance, strengthen ing, gait, mobility, endurance outpt rpnmonitor outpt with pcp 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 659988 E06.3 hx of added to PMHmaintai priscilla onsynthroi d 112 mcg qdmonitor tsh prn with pcp Obesity 388577328 E66.09 dietary evalbaseli ne DMweight to be monitored with pcp outpt Primary insomnia 2783978 F51.01 continueme latoninmon itor need to titrate outpt Acute cystitis 56929150 N30.00 resolved cefpodoxim e to complete courseaysm ptomaticmo nitor for recurrent disease outpt with pcp Health Concerns Section Related Observation LastModified by Organization Detai ls LastModified Time None Recorded Concern Status LastModified by Organization Details LastModified Time None Recorded Advance Directives Directive N: Payers Insurance Date Sequence Insurance Name Policy Number Policy Patten Covered Member ID Patten Member ID Guarantor Name 10/15/2023 1 [facility] - DOS ON OR AFTER 2022 - MEDICARE ADVANTAGE [place] (MEDICARE REPLACEMENT/ADV ANTAGE - PPO) Brandie Luevano [id number] Brandie Luevano Notes Date Note Type Note Provider Name and Address Organization Details Recorded Time 09/29/2023 text/html ROS as noted in the HPI Pt is seen for an acute rounding visit. Pt is a 73 [...] a cane usually Dori Pena, AAKASH [address], [address], [place], [address], [facility] - [employer] 09/29/2023 11:09:33 10/02/2023 text/html ROS as noted in the HPI Pt is seen for an acute rounding visit. note: Brandie is a [...] is sitting up in bed with her [employer] visiting. She has her sling in place [...] a cane usually Dori Pena NP [address], [place], [address], [facility] - [facility] 10/02/2023 13:48:50 10/06/2023 text/html ROS as noted in the HPI Pt is seen for an acute rounding visit. Brandie is working here at [facility] and is feeling good and more mobile lately with left sling in place. She continues with therapy and making gains. She was treated for a UTI when she first came to [facility] and denies any urinary symptoms. Nursing [...] appropriate on discharge. MOLST: 09/17/23 full codeBIMS: 1515MORSE: high fall risk, uses a cane usually Dori Pena NP [address] [facility] [facility] [address], [place], [address], [facility] [employer] 10/06/2023 12:26:22 10/08/2023 text/html ROS as noted in the HPI Pt is seen for an acute rounding visit. She is a 73 [...] a UTI when she first came to [facility] and denies any urinary symptoms. Nursing [...] denies other concerns. MOLST: 09/17/23 full codeBIMS: 15/MORSE: high fall risk, uses a cane usually Dori Pena NP [address], [address], [place], [address], [facility] [employer] 10/08/2023 12:05:52 10/09/2023 text/html ROS as noted in the HPI Pt is seen for a discharge visit. [...] a UTI when she first came to [facility] and denies any urinary symptoms. Nursing [...] a cane usually Dori Pena NP [address], [address], [place], [address], [facility] - [facility] 10/09/2023 16:50:56 OBGyn Episode No OBEpisode recorded.
[2024-11-12 16:17] VITALS: BP 128/44; PULSE 92; RESP 16; TEMP 36.6; O2SAT 97
--- NOTE | 2024-11-12 16:20 | ED.GENADULT ---
HPI - General Adult General Chief complaint: Recheck/Abnormal Lab/Rx Stated complaint: hyperglycemia Time Seen by Provider: 11/12/24 16:18 Source: patient Mode of arrival: EMS Limitations: no limitations History of Present Illness ED Provider: HPI narrative: Patient is 74 years old with history of diabetes mellitus on insulin, Rona's disease, hypertension, GERD, rheumatoid arthritis, iron deficiency anemia, history of anxiety depression was seen your in the ED on 11/08 when she fell at hematology department's had significant hematoma of the forehead and face with dislocation of left 4th finger and left Colles fracture since she been in rehab unable to get the sliding scale of insulin getting Tresiba only noted to have elevated blood sugar earlier was 600 on arrival was 306 patient otherwise feeling slightly weak and tired no fever no chills Related Data Home Medications ?Medication ?Instructions ?Recorded ?Confirmed clonazepam 0.5 mg tablet 1 tab PO Q8H PRN anxiety 01/02/21 11/09/24 amlodipine 10 mg tablet 10 mg PO DAILY 05/14/22 11/09/24 prazosin 2 mg capsule 6 mg PO BEDTIME 05/14/22 11/09/24 aripiprazole 20 mg tablet 20 mg PO DAILY 01/10/23 11/09/24 losartan 100 mg tablet 100 mg PO DAILY 07/30/23 11/09/24 atorvastatin 20 mg tablet 20 mg PO DAILY 08/21/23 11/09/24 gabapentin 100 mg capsule 100 mg PO BID 08/21/23 11/09/24 melatonin 3 mg tablet 3 mg PO BEDTIME 08/21/23 11/09/24 venlafaxine 75 mg capsule,extended 75 mg PO DAILY 10/07/24 11/09/24 release 24 hr cholecalciferol (vitamin D3) 50 50 mcg PO DAILY 11/09/24 11/09/24 mcg (2,000 unit) capsule (Vitamin D3) clopidogrel 75 mg tablet 75 mg PO DAILY 11/09/24 11/09/24 esomeprazole magnesium 40 mg 40 mg PO DAILY@0630 11/09/24 11/09/24 capsule,delayed release insulin aspart See Protocol subcut TIDAC 11/09/24 11/09/24 (niacinamide)(U-100) 100 unit/mL(3 mL) subcutaneous pen (Fiasp FlexTouch U-100 Insulin) insulin degludec 100 unit/mL (3 8 unit subcut DAILY 11/09/24 11/09/24 mL) subcutaneous pen (Tresiba FlexTouch U-100 insulin) levothyroxine 125 mcg tablet 125 mcg PO DAILY@0600 11/09/24 11/09/24 linaclotide 145 mcg capsule 145 mcg PO DAILY 11/09/24 11/09/24 (Linzess) oxycodone 5 mg tablet 5 mg PO Q12H PRN Pain, 11/09/24 11/09/24 Moderate(Pain Scale 4-6) simethicone 125 mg chewable tablet 125 mg PO QID PRN abdominal 11/09/24 11/09/24 (Gas Relief (simethicone)) distention Previous Rx's ?Medication ?Instructions ?Recorded insulin syringe-needle U-100 0.3 #100 ea 06/13/20 mL 31 gauge x 5/16 (BD Insulin Syringe Ultra-Fine) blood-glucose meter (FreeStyle #1 ea 05/20/22 Lite Meter kit) albuterol sulfate 90 mcg/actuation 2 puff inhalation Q4-6H PRN 04/10/23 aerosol inhaler shortness of breath or wheezing #8.5 grams albuterol sulfate 2.5 mg/3 mL 2.5 mg (3 mL) inhalation Q3H PRN 04/18/23 (0.083 %) solution for nebulization sob #180 mL nebulizers #1 ea 04/18/23 acetaminophen 325 mg tablet 650 mg (2 x 325 mg) PO Q6H PRN 09/16/23 Pain, Mild (Pain Scale 1-3) #1 tab ondansetron 4 mg disintegrating 4 mg PO Q8H PRN nausea and 01/04/24 tablet vomiting #7 tabs zinc gluconate 30 mg tablet 30 mg PO DAILY #90 tabs 04/01/24 bisacodyl 5 mg tablet,delayed 10 mg (2 x 5 mg) PO BEDTIME #60 06/18/24 release tabs carvedilol 6.25 mg tablet 6.25 mg PO BID #180 tabs 07/22/24 blood-glucose sensor (Dexcom G7 #3 ea 07/30/24 Sensor device) blood sugar diagnostic (FreeStyle #200 strips 08/03/24 Lite Strips) folic acid 1 mg tablet 1 mg PO DAILY #90 tabs 08/17/24 calcium citrate 400 mg (2 x 200 mg (950 mg)) PO 09/22/24 BID #120 tabs Actemra ACTPen 162 mg/0.9 mL 162 mg (0.9 mL) subcut Q2W #1.8 mL 10/05/24 subcutaneous pen injector (tocilizumab) glucagon 3 mg/actuation nasal 3 mg intranasal ONCE PRN 11/08/24 spray (Baqsimi) Unresponsive hypoglycemia may repeat in 15min 30 days #2 ea pen needle, diabetic 32 gauge x #200 ea 11/08/24 (Pentips Pen Needle) Allergies Allergy/AdvReac Type Severity Reaction Status Date / Time lorazepam (LORAZEPAM) Allergy Severe DELIRIUM Verified 11/12/24 15:34 celecoxib (From Celebrex) Allergy Intermediate ITCHING Verified 11/12/24 15:34 tramadol (TRAMADOL) Allergy Intermediate ITCHING Verified 11/12/24 15:34 zolpidem (Ambien) Allergy Unknown unknown Verified 11/12/24 15:34 Review of Systems Review of Systems: Yes all other systems are reviewed and are negative [facility] Past Medical History Medical History Heart palpitations Hypoglycemia due to insulin Elevated parathyroid hormone Osteoporosis Hyperlipidemia (04/21/1959) Depressive disorder (04/21/1959) Nutritional anemia (04/21/1959) Shortness of breath Hypothyroidism (04/21/1959) Anemia Chronic gastritis NSTEMI (non-ST elevated myocardial infarction) Recurrent falls (12/04/11) Iron deficiency anemia (04/21/1959) Fibromyositis (04/21/1959) Eczema (04/21/1959) High risk medication use Hepatitis C antibody positive in blood Screening for osteoporosis Screening for viral disease Joint swelling Overweight (BMI 25.0-29.9) Neck pain Swelling of knee joint, right Intra-abdominal abscess Diabetes Elevated liver function tests Intestinal malabsorption following gastrectomy Obesity (BMI 30-39.9) 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 Hypertension Cholecystitis Hyperlipidemia, unspecified Essential hypertension Atherosclerotic cardiovascular disease Fibromyalgia Folliculitis Anxiety Depression History of myocardial infarction Diabetes type 1, uncontrolled Hyperparathyroidism due to vitamin D deficiency Dyslipidemia Rona's disease Hypothyroidism Surgical History Status post gastric bypass for obesity History of bypass gastroenterostomy (11/13/17) H/O gastric bypass S/P laparoscopic cholecystectomy History of esophagogastroduodenoscopy (EGD) H/O colonoscopy History of laparoscopic cholecystectomy History of bladder suspension procedure Status post laser cataract surgery of both eyes Hx of appendectomy Family History Family History Father No problems noted. Mother CVA (cerebral vascular accident) Sister Hypertension Brother Hypertension Liver cancer Social History Social History Household Members: None Housing: Apartment Are you a primary resident care supervisor to a significant other at home: No Do you presently have visiting nurse or other home services: Yes Unable to assess alcohol history related to: Unable to respond Alcohol intake: never Patient Tobacco Use Status: Never used Tobacco Advance Directives: Yes Advance Directives on File: Yes Advance Directives Date on File: 09/17/23 service: No Current occupational status: disabled Current occupation: right hand dominant Physical Exam ED Vital Signs: Vital Signs - 24 hr 11/12/24 15:33 11/12/24 16:17 11/12/24 18:00 Temperature 98.9 F 97.8 F 98.3 F Pulse Rate 92 92 95 Respiratory Rate 16 16 16 Blood Pressure 117/59 L 128/44 L 119/59 L Pulse Oximetry 97 97 95 Oxygen Delivery Method Room Air Room Air Room Air 11/12/24 21:00 11/12/24 21:02 Temperature 98.8 F 98.8 F Pulse Rate 100 100 Respiratory Rate 16 16 Blood Pressure 118/53 L 118/53 L Pulse Oximetry 100 100 Oxygen Delivery Method Room Air Room Air BMI result Body Mass Index 28.1 Appearance: Alert. Oriented X3. No acute distress. Eyes: PERRLA, No Nystagmus ENT: Pharynx normal. Oral Mucosa moist ecchymosis on the forehead and nose in the face Neck: Normal inspection. Neck supple. CVS: Normal heart rate and rhythm. Pulses normal. Respiratory: No respiratory distress. Equal air entry bilateral, no wheezing/rales/rhonchi Abdomen: Soft and nontender. Bowel sounds are present, no mass palpable, no CVA tenderness Skin: Skin warm and dry. Normal skin color. Normal skin turgor. Extremities: No lower extremity edema. No calf tenderness left hand in his splint with eva taping of the left 4th finger Neuro: Oriented X 3. No motor deficit. No sensory deficit.No cerebellar signs , cranial nerves II-XII intact Medications Administered Discontinued Medications Generic Name Dose Route Start Last Admin Trade Name Lesterq PRN Reason Stop Dose Admin Insulin Human Lispro 6 unit 11/12/24 17:21 11/12/24 19:31 Insulin Lispro 100 Unit/Ml 3 Ml Vial SUBCUT 11/12/24 17:22 Not Given ONCE ONE Oxycodone HCl 5 mg 11/12/24 18:52 11/12/24 18:57 Oxycodone Hcl Immed Release 5 Mg Tablet PO 11/12/24 18:53 5 mg ONCE ONE Administration Medical Decision Making Medical Decision Making [facility] Narrative: Patient is diabetic with hyperglycemia on insulin unable to get the short-acting insulin before meals during stay here patient's blood sugar improved to 186 without any medications residential called with the will be giving her sliding scale insulin and got the prescription from the PCP Lab Data [facility] Lab Attestation statement: I reviewed the patient's lab results. 11/12/24 18:05 11/12/24 18:05 Labs: Lab Results 11/12/24 11/12/24 11/12/24 Range/Units 15:24 18:05 19:07 WBC 11.4 H (4.8-10.8) X10*3/uL RBC 3.71 L (4.20-5.50) X10*6/uL Hgb 10.5 L (12.0-16.0) g/dl Hct 30.8 L (37.0-47.0) % MCV 83.0 (80.0-98.0) fL MCH 28.3 (27.0-33.0) pg MCHC 34.1 (31.0-35.0) g/dl RDW 13.3 (11.0-16.0) % Plt Count 178 (160-400) X10*3/uL MPV 10.9 (9.4-12.3) fL Immature Gran % (Auto) 0.4 (0.0-0.4) % Neut % (Auto) 63.2 (45-73) % Lymph % (Auto) 19.3 L (20-40) % Hardin % (Auto) 8.3 (2-11) % Eos % (Auto) 8.4 H (0-4) % Baso % (Auto) 0.4 (0-2) % Lymph # (Auto) 2.2 (1.2-4.9) X10*3/uL Hardin # (Auto) 1.0 (0.1-1.2) X10*3/uL Eos # (Auto) 1.0 H (0.0-0.4) X10*3/uL Baso # (Auto) 0.1 (0.0-0.2) X10*3/uL Abs Immat Gran (auto) 0.04 H (0.00-0.03) X10*3/uL Absolute Neuts (auto) 7.2 (2.0-8.3) x10*3/uL Absolute Nucleated RBC 0.000 (0.0-0.012) X10*3/uL Nucleated RBC % (auto) 0.0 (0.0-0.2) /100WBC Sodium 134 L (135-145) mmol/L Potassium 3.9 D (3.3-5.1) mmol/L Chloride 100 (96-108) mmol/L Carbon Dioxide 24 (22-29) mmol/L Anion Gap 14 (12-20) BUN 40 H (9-16) mg/dL Creatinine 1.24 (0.5-1.4) mg/dL Estim Creat Clear Calc 42.2 Estimated GFR 42 POC Glucose 306 H 186 H (60-115) mg/dL Random Glucose 217 H (60-115) mg/dL Calcium 8.6 (8.4-10.2) mg/dL Total Bilirubin 0.4 (0.0-1.0) mg/dL AST 24 (5-31) U/L ALT 38 H (0-31) U/L Alkaline Phosphatase 106 (39-117) U/L Total Protein 5.9 L (6.5-8.0) g/dL Albumin 3.4 L (3.5-5.0) g/dL Discharge Plan Discharge Clinical Impression: Diabetes mellitus with hyperglycemia Patient Disposition: Xfer Inpatient Rehab Fac Transfer Details: Instructions as advised Instructions: Diabetic Hyperglycemia (ED) Additional Instructions: Continue patient's insulin as advised Take Humalog subQ according to sliding scale before meals Prescriptions: No Action (DME) insulin syringe-needle U-100 [BD Insulin Syringe Ultra-Fine] 0.3 mL 31 gauge x 5/16 syringe See Rx Instructions .ROUTE .MEDSUPPLY Qty: 100 0RF Rx Instructions: As directed 3 times per day (DME) blood-glucose meter [FreeStyle Lite Meter] Kit See Rx Instructions .ROUTE .MEDSUPPLY Qty: 1 0RF Rx Instructions: As directed zinc gluconate 30 mg tablet 30 mg PO DAILY Qty: 90 3RF bisacodyl 5 mg tablet,delayed release (DR/EC) 10 mg PO BEDTIME Qty: 60 6RF carvedilol 6.25 mg tablet 6.25 mg PO BID Qty: 180 3RF (DME) Dexcom G7 Sensor Device See Rx Instructions .ROUTE .MEDSUPPLY Qty: 3 11RF Rx Instructions: As directed every 10 days (DME) FreeStyle Lite Strips Strip See Rx Instructions .ROUTE .COMPLEX Qty: 200 11RF Dose Instruction: TEST BLOOD SUGAR 8 TIMES EVERY DAY Rx Instructions: TEST BLOOD SUGAR 8 TIMES EVERY DAY calcium citrate 200 mg (950 mg) tablet 400 mg PO BID Qty: 120 4RF Actemra ACTPen 162 mg/0.9 mL pen injector 162 mg subcut Q2W Qty: 1.8 5RF folic acid 1 mg Tablet 1 mg PO DAILY Qty: 90 4RF clonazepam 0.5 mg tablet 1 tab PO Q8H PRN (Reason: anxiety) acetaminophen 325 mg Tablet 650 mg PO Q6H PRN (Reason: Pain, Mild (Pain Scale 1-3)) Qty: 1 0RF ondansetron 4 mg tablet,disintegrating 4 mg PO Q8H PRN (Reason: nausea and vomiting) Qty: 7 0RF albuterol sulfate 90 mcg/actuation HFA aerosol inhaler 2 puff inhalation Q4-6H PRN (Reason: shortness of breath or wheezing) Qty: 8.5 0RF albuterol sulfate 2.5 mg /3 mL (0.083 %) Solution For Nebulization 2.5 mg inhalation Q3H PRN (Reason: sob) Qty: 180 2RF (DME) nebulizers Misc See Rx Instructions .Route Qty: 1 0RF Rx Instructions: As directed clopidogrel 75 mg tablet 75 mg PO DAILY esomeprazole magnesium 40 mg capsule,delayed release(DR/EC) 40 mg PO DAILY@0630 levothyroxine 125 mcg tablet 125 mcg PO DAILY@0600 simethicone [Gas Relief (simethicone)] 125 mg tablet,chewable 125 mg PO QID PRN (Reason: abdominal distention) cholecalciferol (vitamin D3) [Vitamin D3] 50 mcg (2,000 unit) capsule 50 mcg PO DAILY Linzess 145 mcg capsule 145 mcg PO DAILY Rx Instructions: Take first thing in the morning with a full glass of water. insulin degludec [Tresiba FlexTouch U-100] 100 unit/mL (3 mL) insulin pen 8 unit subcut DAILY Fiasp FlexTouch U-100 Insulin 100 unit/mL (3 mL) insulin pen See Protocol subcut TIDAC Protocol: Insulin Correction Scale Less than or equal to 110 ---- Give (units): 0 111 to 150 Give (units): 0 151 to 200 Give (units): 2 201 to 250 Give (units): 4 251 to 300 Give (units): 6 301 to 350 Give (units): 8 Greater than 350 Give (units): 10 Call MD if Blood Glucose > : 350 oxycodone 5 mg tablet 5 mg PO Q12H PRN (Reason: Pain, Moderate(Pain Scale 4-6)) Rx Instructions: Partial Fill upon patient request. amlodipine 10 mg tablet 10 mg PO DAILY prazosin 2 mg capsule 6 mg PO BEDTIME aripiprazole 20 mg tablet 20 mg PO DAILY losartan 100 mg tablet 100 mg PO DAILY gabapentin 100 mg capsule 100 mg PO BID melatonin 3 mg tablet 3 mg PO BEDTIME atorvastatin 20 mg tablet 20 mg PO DAILY venlafaxine 75 mg capsule,extended release 24hr 75 mg PO DAILY Baqsimi 3 mg/actuation spray,non-aerosol 3 mg intranasal ONCE PRN (Reason: Unresponsive hypoglycemia may repeat in 15min) 30 Days Qty: 2 1RF (DME) pen needle, diabetic [Pentips Pen Needle] 32 gauge x 5/32 needle See Rx Instructions .ROUTE .COMPLEX Qty: 200 7RF Dose Instruction: USE FIVE TIMES DAILY Rx Instructions: USE FIVE TIMES DAILY Interventions: ED Discharge Assessment Last Done: 11/12/24 21:00 Discharge Date/Time: 11/12/24 22:44 Print Language: Irish
--- NOTE | 2024-11-12 17:39 | MHC.EDTECH ---
Patient used bedpan
[2024-11-12 18:00] VITALS: BP 119/59; PULSE 95; RESP 16; TEMP 36.8; O2SAT 95
[2024-11-12 18:09] LABS: MANUAL DIFF FLAG NO
[2024-11-12 18:12] LABS: Hematocrit 30.8 % (37.0-47.0); Hemoglobin 10.5 g/dl (12.0-16.0); Imm Gran Abs Auto 0.04 X10*3/uL (0.00-0.03); Imm Gran Pct Auto 0.4 % (0.0-0.4); Lymphocytes Absolute Auto 2.2 X10*3/uL (1.2-4.9); Mean Corpuscular HGB Conc 34.1 g/dl (31.0-35.0); Mean Corpuscular Hemoglobin 28.3 pg (27.0-33.0); Mean Corpuscular Volume 83.0 fL (80.0-98.0); NRBC Abs Auto 0.000 X10*3/uL (0.0-0.012); NRBC Pct Auto 0.0 /100WBC (0.0-0.2); Platelet Count 178 X10*3/uL (160-400); Red Blood Count 3.71 X10*6/uL (4.20-5.50); White Blood Count 11.4 X10*3/uL (4.8-10.8)
[2024-11-12 18:30] LABS: Alanine Aminotransferase 38 U/L (0-31); Albumin Level 3.4 g/dL (3.5-5.0); Alkaline Phosphatase 106 U/L (39-117); Anion Gap 14 (12-20); Aspartate Amino Transferase 24 U/L (5-31); Blood Urea Nitrogen 40 mg/dL (9-16); Calcium 8.6 mg/dL (8.4-10.2); Carbon Dioxide 24 mmol/L (22-29); Chloride 100 mmol/L (96-108); Creatinine Clr Calc Pharmacy 42.2; Estimated Glomerular Filt Rate 42; Potassium 3.9 mmol/L (3.3-5.1); Sodium 134 mmol/L (135-145); Total Protein 5.9 g/dL (6.5-8.0)
[2024-11-12] MEDS: oxyCODONE HCl Immed Release 5 MG TABLET PO (18:57)
[2024-11-12 19:13] LABS: Glucose, Whole Blood 186 mg/dL (60-115)
--- NOTE | 2024-11-12 20:33 | PC.NURSE ---
Addendum entered by Fabian Chu RN 11/12/24 21:15: not typed below but verbalized below to facility staff that ED MD can prescribe short acting if needed. Original Note: spoke with Ericka at [facility]. this RN expressed that patient came in for high sugar, not able to obtain short acting insulin. only taking long acting. no insulin given and sugar returned to 186 after several hours. staff stated understanding and told this nurse that patient can be sent back to [facility] from ED now that the blood sugar is controlled. MD [place] made aware
[2024-11-12 21:00] VITALS: BP 118/53; PULSE 100; RESP 16; TEMP 37.1; O2SAT 100
[2024-11-12 21:02] VITALS: BP 118/53; PULSE 100; RESP 16; TEMP 37.1; O2SAT 100
--- NOTE | 2024-11-12 22:42 | PC.NURSE ---
alert, oriented upon d/c. eating. states needs are met, denied symptoms
== END 2024-11-12 22:44 ==
PROVIDERS: Emergency Provider Internal Medicine
DX: E11.65 Type 2 diabetes mellitus with hyperglycemia (principal); R79.89 Other specified abnormal findings of blood chemistry; Z79.899 Other long term (current) drug therapy; Z79.4 Long term (current) use of insulin
CPT/HCPCS: 36415; 80053; 82947; 85025; 99283

== ENCOUNTER 2024-12-08 10:12 | Outpatient (REF) | payer OTHER, SELFPAY ==
--- NOTE | ~2024-12-08 | XR_ITS ---
EXAMINATION: XR WRIST, LEFT CLINICAL INFORMATION: M25.532 - Pain in left wrist COMPARISON: November 08, 2024 TECHNIQUE: PA, lateral, and oblique views of the left wrist. FINDINGS: There is diffuse osteopenia. Again seen is an impacted fracture with increased dorsal tilt of the distal radius and oblique fracture through the distal ulna and ulnar styloid base. There is evidence of increasing medullary bone formation and faint periosteal new bone formation. There is posttraumatic ulnar minus variance measuring 6 mm. Scapholunate interval is widened, measuring 4 mm, new since the prior. XR/XR wrist LT min 3V IMPRESSION: Healing distal radial intra-articular fracture with increasing dorsal tilt. Healing distal ulnar fracture. Scapholunate ligament tear with joint diastases was not evident on the prior. Osteopenia. Electronically signed by: Hi Nava MD 12/08/2024 11:29 AM EDT
--- NOTE | ~2024-12-08 | XR_ITS ---
EXAMINATION: XR HAND, RIGHT CLINICAL INFORMATION: M79.641 - Pain in right hand COMPARISON: None available. TECHNIQUE: PA, lateral, and oblique views of the right hand. FINDINGS: There is diffuse osteopenia. Again seen is linear corticated ossification on the ulnar side of the fourth proximal phalanx head and adjacent the radial side of the IP joint of the thumb. There is widening of the scapholunate interval, chronic. There is mild narrowing of the second and moderate narrowing of the third MCP joints. There is amorphous calcific density projecting in the triangular fibrocartilage. On the oblique view, there is lucency through the radial aspect at the base of the distal phalanx of the second digit. XR/XR hand RT min 3V IMPRESSION: There is lucency through the radial base of the distal phalanx of the second digit, correlate for signs symptoms to rule out in or out fracture. There is diffuse osteopenia. 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 Scapholunate ligament tear with joint diastases, chronic. Electronically signed by: Hi Nava MD 12/08/2024 11:25 AM EDT
== END 2024-12-08 10:13 | disposition home or self-care (01) ==
LOC: HO.HOSX 10:12
PROVIDERS: Visit Provider Orthopaedic Surgery
DX: Z47.89 Encounter for other orthopedic aftercare (principal); S63.284A Dislocation of proximal interphalangeal joint of right ring finger, initial encounter; S52.502A Unspecified fracture of the lower end of left radius, initial encounter for closed fracture; M66.242 Spontaneous rupture of extensor tendons, left hand; M05.9 Rheumatoid arthritis with rheumatoid factor, unspecified; E10.649 Type 1 diabetes mellitus with hypoglycemia without coma; W19.XXXA Unspecified fall, initial encounter
CPT/HCPCS: 73110; 73130; 99212

== ENCOUNTER 2024-12-08 10:12 | Outpatient (AMB) | payer OTHER, SELFPAY ==
--- NOTE | 2024-12-08 10:23 | A.OFFVIS_ITS ---
Intake Visit Reasons: OV - Left Ring Finger Contracture Intake Note: Brandie 74 yr old right hand dominant female presents today for her follow up visit for her ulnar subluxation of both the middle and ring finger EDC tendons. At her last visit she was to stay in her splint and keep it clean and dry. Patient states she is doing well and was even able to work with O.T at her facility. Currenlty states she has no pain. Allergies lorazepam (LORAZEPAM) Allergy (Severe, Verified 12/08/24 10:26) DELIRIUM celecoxib (From Celebrex) Allergy (Intermediate, Verified 12/08/24 10:26) ITCHING tramadol (TRAMADOL) Allergy (Intermediate, Verified 12/08/24 10:26) ITCHING zolpidem (Ambien) Allergy (Unknown, Verified 12/08/24 10:26) unknown HPI HPI OV - Left Ring Finger Contracture: Details: Brandie is a 74-year-old Syriac-speaking woman who returns for a follow up of her left ring finger contracture. She reports having a fall on 11/08/24 while in the hospital, resulting in a left distal radius & distal ulna fracture, and a dislocation of her right ring finger PIP joint, which was reduced in ED. Her wrist was splinted in the ED, and this, 1 month later, is her first time being seen in our office since her injury. She says she was not able to make it to OT hand therapy due to her fall. In regards to her right hand, she is able to make a full fist and extend all her digits. She is seen today in a long arm sugar-tong splint on the left upper extremity, extending from her elbow to her fingertips. In regards to her left hand, she is still not able to extend her left ring finger, and the left ring finger being stuck in her palm. She says this has been going on for ~1.5 years. She has multiple medical comorbidities. She has seropositive rheumatoid arthritis. It looks like Enbrel was discontinued last year and she is currently on Actemra She also has hepatitis-C, history of NM, diabetes, fibromyalgia anxiety and depression as well as other medical problems. Please see her chart for additional information is necessary. She is currently residing in a group home facility. [facility] Medical History Heart palpitations Hypoglycemia due to insulin Elevated parathyroid hormone Osteoporosis Hyperlipidemia (04/21/1959) Depressive disorder (04/21/1959) Nutritional anemia (04/21/1959) Shortness of breath Hypothyroidism (04/21/1959) Anemia Chronic gastritis NSTEMI (non-ST elevated myocardial infarction) Recurrent falls (12/04/11) Iron deficiency anemia (04/21/1959) Fibromyositis (04/21/1959) Eczema (04/21/1959) High risk medication use Hepatitis C antibody positive in blood Screening for osteoporosis Screening for viral disease Joint swelling Overweight (BMI 25.0-29.9) Neck pain Swelling of knee joint, right Intra-abdominal abscess Diabetes Elevated liver function tests Intestinal malabsorption following gastrectomy Obesity (BMI 30-39.9) 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 Hypertension Cholecystitis Hyperlipidemia, unspecified Essential hypertension Atherosclerotic cardiovascular disease Fibromyalgia Folliculitis Anxiety Depression History of myocardial infarction Diabetes type 1, uncontrolled 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 Mother CVA (cerebral vascular accident) Sister Hypertension Brother Hypertension Liver cancer Social History Household Members: None Housing: Apartment Are you a primary progressive care nurse to a significant other at home: No Do you presently have visiting nurse or other home services: Yes Unable to assess alcohol history related to: Unable to respond Alcohol intake: never Patient Tobacco Use Status: Never used Tobacco Advance Directives Date on File: 09/17/23 service: No Current occupational status: disabled Current occupation: right hand dominant Review of Systems Const All systems reviewed & are unremarkable except as noted in HPI and below Physical Exam Const General: no acute distress and alert Orientation/consciousness: patient oriented x3 Neuro General: patient oriented x3 Extrem Other: Evaluation of Left Upper Extremity: The patient is alert, oriented, and in no acute distress In regards to the left upper extremity: The left ring finger is held flexed into her palm and ulnarly deviated. Her middle finger is also noted to be ulnarly deviated. She appears to have ulnar subluxation of both the middle and ring finger EDC tendons. The sugar-tong splint was removed. Her fingers are held flexed at the MCP joints. The ring finger is held more flexion in the adjacent middle and small fingers. I was able to passively bring them out to extension, though the ring finger will not come quite to full extension. The distal radius was not particularly tender to palpation. Mild tenderness of the distal ulna Full pronation Supination to ~50 degrees with some mild pain & some crepitus The EDC tendons to the index and small fingers appear to be well aligned at present In regards to her right hand: She is able to make a fist and extend all her digits The ring finger PIP joint is stable on exam and has full range of motion. This has recovered nicely. Radiographs: 3 views of the left wrist were taken and viewed by me today in clinic. They show a comminuted intra-articular distal radius fracture with ~40 degrees apex volar angulation and a minimally displaced distal ulna fracture 3 views of the right hand were taken and viewed by me today in clinic. They show a concentric reduction of the ring finger PIP joint with a small ephraim-articular fracture at the ulnar joint line of the proximal phalanx at the PIP joint Psych Appearance: grossly normal Affect: normal affect Attitude: cooperative Office Procedures AMB Fracture Care Details: Distal radius fracture 44388 Fracture Billing Code: Fracture Billing Code Assessment & Plan Assessment & Plan (1) Distal radius fracture, left: Code(s): S52.502A - Unspecified fracture of the lower end of left radius, initial encounter for closed fracture Category: Medical (2) Closed traumatic dislocation of proximal interphalangeal (PIP) joint of right ring finger: Code(s): S63.284A - Dislocation of proximal interphalangeal joint of right ring finger, initial encounter Category: Medical (3) Nontraumatic subluxation of extensor tendon at metacarpophalangeal joint of left hand: Code(s): M66.242 - Spontaneous rupture of extensor tendons, left hand Category: Medical (4) Seropositive rheumatoid arthritis: Comment: +RF -ve CCP dx 02/10 Enbrel 02/2023 partially effective DC 09/2023 Actemra 10/2023 effective Code(s): M05.9 - Rheumatoid arthritis with rheumatoid factor, unspecified Category: Medical (5) Nontraumatic subluxation of extensor tendon at metacarpophalangeal joint of left hand: Code(s): M66.242 - Spontaneous rupture of extensor tendons, left hand Category: Medical (6) Diabetes type 1, uncontrolled: Comment: Doses of Tresiba over 19 units cause am lows! Code(s): E10.65 - Type 1 diabetes mellitus with hyperglycemia Category: Medical Qualifiers: Coma presence: without coma Glycemic state: with hypoglycemia Qualified Code(s): E10.649 - Type 1 diabetes mellitus with hypoglycemia without coma Plan Assessment and plan: 1. Left distal radius fracture, comminuted intra-articular From a fall, DOI: 11/08/24 Splinted in ED same day 2. Left distal ulna fracture, minimally displaced From a fall, DOI: 11/08/24 Splinted in ED same day 3. Right ring finger PIP joint dislocation, S/P reduction DOI: 11/08/24, Reduced in ED same day With a small healing fracture of the proximal phalanx PIP joint level, stable on exam This is her first time being seen here in clinic for these injuries I educated her about these conditions Due to these injuries she was not able to be seen by OT hand therapy to have her previous custom splint made She was fitted for a left velcro wrist splint, to be worn like a cast except for showering, for the next 2 weeks. She will remove this when at rest I discussed activity modification, she is to lift nothing heavier than a cellphone for the next 4 weeks She is to avoid any falls or impact activities for the next 4 weeks She should work on gentle finger & wrist ROM exercises at home, particularly supination With regards to the right ring finger dislocation, she should continue to work on gentle range of motion exercises and continue with all activities as tolerated. She will follow up 4 weeks, with X-rays, 3V L wrist, OOP 4. Rheumatoid arthritis 5. Left ring finger EDC tendon subluxation/dislocation Related to ruptured radial sagittal band and RA 6. Left ring finger possible trigger finger 7. Left middle finger EDC tendon subluxation Related to ruptured radial sagittal band and RA 8. Left ring finger flexion contracture/tightness secondary to above conditions. I educated the patient about this condition I want to begin with some OT hand therapy. I think that she would benefit from a custom thermoplastic splint that will hold the left middle and ring finger MCP joints in extension and in proper alignment. Once the tightness is improved, we might be able to proceed with an operative realignment procedure of the EDC tendons to the left middle and ring fingers. She understands that she would need to be in a cast and/or orthosis for at least 6-8 weeks afterwards. We would also need to make sure her diabetes is well controlled, and talk with Rheumatology about when to stop her Actemra. She would need to be off the Actemra until she has good healing. For now, we need to allow her distal radius fracture to heal.. In the future I may again order OT hand therapy to have a custom thermoplastic splint that will hold the left middle and ring finger MCP joints in extension and in proper alignment made for her to wear. we will talk about this in more detail when she has recovered from her current fracture Please note that greater than 60 minutes was spent with this patient evaluating the chart, evaluating her problem, formulating a treatment plan and documenting the visit and treatment plan. Scribed for Rose Aggarwal MD by Joni Santos, medical device assembler, on 12/08/24 at 10:30 AM, EST. Orders: Orders XR hand RT min 3V Today M79.641 - Pain in right hand XR wrist LT min 3V Today M25.532 - Pain in left wrist Coding Level of Care Code Est Pt Level 5 (93575) Diagnoses Distal radius fracture, left S52.502A Closed traumatic dislocation of proximal interphalangeal (PIP) joint of right ring finger S63.284A Nontraumatic subluxation of extensor tendon at metacarpophalangeal joint of left hand M66.242 Seropositive rheumatoid arthritis M05.9 Uncontrolled type 1 diabetes mellitus with hypoglycemia without coma E10.649 Coma presence: without coma Glycemic state: with hypoglycemia CPT Codes Fracture Care - Fracture Billing Code: Fracture Billing Code ([id number])
--- OUTSIDE RECORDS SUMMARY | 2024-12-08 11:21 | XMS_ITS | Clinical Summary ---
Author Organization [address] [facility] Address [address] [place] [address] Phone Care Team Providers Care Clinical Research Scientist Name Role Phone Pascual Darnell MD Primary Care Provi chio Allergies Active Allergy Reactions Criticality Noted Date Comments Clonazepam 09/02/2024 Medications No known medications Encounters Date Type Department Care Team Description 11/23/2024 Lab Requisition [facility] [address] [place] [address] Vero Mike MD Type 1 diabetes mellitus with hyperglycemia (CMS/HCC V24, CMS/HCC V28); Old myocardial infarction; Essential (primary) hypertension; Vitamin D deficiency, unspecified 11/16/2024 Lab Requisition [facility] Lab [address] [place] [address] Vreo Mike MD Altered mental status, unspecified from Last 3 Months Social History Tobacco [...] 09/02/2024 10:46 AM EDT Plan of Treatment Health Maintenance Due Date Last Done Comments Breast Cancer Screening 1950 Diabetes: Annual Foot Exam 02/08/1960 Diabetes: Annual Retina Eye Exam 02/08/1960 Colorectal Cancer Screening: Colonoscopy 11/21/2023 Falls Risk Assessment 11/21/2023 Medicare Annual Wellness Visit 11/21/2023 Osteoporosis Screening (Bone Density Screening) 11/21/2023 Social Influencers of Health Screening 11/21/2023 COVID-19 Vaccine ( season) 2023 04/18/2022, 09/04/2021, 03/05/2021, Additional history exists Depression Screening 04/21/2024 Diabetes: Annual Urine Albumin-Creatinine Ratio (uACR) 06/18/2024 Influenza Vaccine (#1) 2024 , 03/11/2023, 01/15/2023, Additional history exists Diabetes: Blood Sugar Control Test (HGBA1C) 05/27/2025 11/24/2024, 08/12/2024 Diabetes: Annual GFR (Glomerular Filtration Rate) 11/24/2025 11/24/2024, 08/16/2024 Hypertension/CHF/CAD Annual BMP Blood Test 11/24/2025 11/24/2024, 08/16/2024 Cholesterol Screening (Lipid Panel) 08/16/2029 08/16/2024 DTaP,Tdap,and Td Vaccines (5 - Td or Tdap) 10/14/2034 10/14/2024, 09/24/2013, 02/22/2003, Additional history exists MMR Vaccines Aged Out 11/21/1997 No longer [...] on patient's age to complete this topic Procedures Procedure Name Priority Date/Time Associated Diagnosis Comments HEMOGLOBIN A1C Routine 11/24/2024 6:16 AM EDT Type 1 diabetes mellitus with hyperglycemia (CMS/HCC V24, CMS/HCC V28) Old myocardial infarction Essential (primary) hypertension Vitamin D deficiency, unspecified COMPLETE BLOOD COUNT Routine 11/24/2024 6:16 AM EDT Type 1 diabetes mellitus with hyperglycemia (CMS/HCC V24, CMS/HCC V28) Old myocardial infarction Essential (primary) hypertension Vitamin D deficiency, unspecified COMPREHENSIVE METABOLIC PANEL Routine 11/24/2024 6:16 AM EDT Type 1 diabetes mellitus with hyperglycemia (CMS/HCC V24, CMS/HCC V28) Old myocardial infarction Essential (primary) hypertension Vitamin D deficiency, unspecified THYROID STIMULATING HORMONE Routine 11/24/2024 6:16 AM EDT Type 1 diabetes mellitus with hyperglycemia (CMS/HCC V24, CMS/HCC V28) Old myocardial infarction Essential (primary) hypertension Vitamin D deficiency, unspecified VITAMIN D 25 HYDROXY Routine 11/24/2024 6:16 AM EDT Type 1 diabetes mellitus with hyperglycemia (CMS/HCC V24, CMS/HCC V28) Old myocardial infarction Essential (primary) hypertension Vitamin D deficiency, unspecified VITAMIN B12 Routine 11/24/2024 6:16 AM EDT Type 1 diabetes mellitus with hyperglycemia (CMS/HCC V24, CMS/HCC V28) Old myocardial infarction Essential (primary) hypertension Vitamin D deficiency, unspecified URINALYSIS WITH REFLEX MICROSCOPIC Routine 11/15/2024 12:20 PM EDT Altered mental status, unspecified URINALYSIS WITH REFLEX MICROSCOPIC Routine 11/15/2024 12:20 PM EDT Altered mental status, unspecified CULTURE URINE Routine 11/15/2024 12:20 PM EDT Altered mental status, unspecified from Last 3 Months Results * Vitamin D 25 hydroxy (11/24/2024 6:16 AM EDT) Pathologist [facility] Vit D, 25-Hydroxy 50.1 30.0 - 80.0 ng/mL LAB CHEMISTRY METHOD 11/24/2024 1:30 PM EDT [facility] Blood Venous blood specimen / Unknown Venipuncture / Unknown 11/24/2024 6:16 AM EDT 11/24/2024 10:32 AM EDT us Vero Mike MD LAB BLOOD ORDERABLES Final Resul t [facility] [address] [place] [address], [place] [phone] * (ABNORMAL) Complete blood count (11/24/2024 6:16 AM EDT) [facility] WBC 8.5 4.8 - 10.8 K/mcL LAB HEMETOLOGY METHOD 11/24/2024 11:00 AM EDT [facility] RBC 3.80 3.80 - 4.80 M/mcL LAB HEMETOLOGY METHOD 11/24/2024 11:00 AM EDT [facility] Hemoglobin 10.4(L) 11.5 - 16.0 g/dL LAB HEMETOLOGY METHOD 11/24/2024 11:00 AM EDT [facility] Hematocrit 32.5(L) 35.0 - 47.0 % LAB HEMETOLOGY METHOD 11/24/2024 11:00 AM EDT [facility] MCV 86.2 79.0 - 98.0 FL LAB HEMETOLOGY METHOD 11/24/2024 11:00 AM EDT [facility] MCH 27.6 27.0 - 32.0 pcg LAB HEMETOLOGY METHOD 11/24/2024 11:00 AM EDT [facility] MCHC 32.0 32.0 - 37.0 g/dL LAB HEMETOLOGY METHOD 11/24/2024 11:00 AM EDT [facility] RDW 13.1 11.0 - 15.0 % LAB HEMETOLOGY METHOD 11/24/2024 11:00 AM EDT [facility] Platelets 345 130 - 400 K/mcL LAB HEMETOLOGY METHOD 11/24/2024 11:00 AM EDT [facility] MPV 10.1 7.0 - 11.0 FL LAB HEMETOLOGY METHOD 11/24/2024 11:00 AM EDT [facility] NRBC 0.0 <1.0 % LAB HEMETOLOGY METHOD 11/24/2024 11:00 AM [facility] NRBC Absolute 0.00 <0.10 K/mcL LAB HEMETOLOGY METHOD 11/24/2024 11:00 AM [facility] Blood Venous blood specimen / Unknown Venipuncture / Unknown 11/24/2024 6:16 AM EDT 11/24/2024 10:24 AM EDT us Vero Mike MD LAB BLOOD ORDERABLES Final Resul t [facility] [address] [place] [address], * Thyroid stimulating hormone (11/24/2024 6:16 AM EDT) TSH 1.63 0.40 - 4.00 mcIU/mL LAB CHEMISTRY METHOD 11/24/2024 1:30 PM EDT [facility] Blood Venous blood specimen / Unknown Venipuncture / Unknown 11/24/2024 6:16 AM EDT 11/24/2024 10:32 AM EDT us Vero Mike MD LAB BLOOD ORDERABLES Final Resul t Performing Organization Address City/[facility]/ZIP Co de Phone Number [facility] [address] [place] [address], [place] [phone] * (ABNORMAL) Hemoglobin A1c (11/24/2024 6:16 AM EDT) Hemoglobin A1C 8.9(H) <6.5 % LAB CHEMISTRY METHOD 11/24/2024 12:29 PM EDT [facility] Mean Bld Glu Estim. 209 mg/dL LAB CHEMISTRY METHOD 11/24/2024 12:29 PM EDT [facility] Blood Venous blood specimen / Unknown Venipuncture / Unknown 11/24/2024 6:16 AM EDT 11/24/2024 10:24 AM EDT us Vero Mike MD LAB BLOOD ORDERABLES Final Resul t Performing Organization Address [facility] Co de Phone Number [facility] [address] [place] [address], [place] [phone] * (ABNORMAL) Vitamin B12 (11/24/2024 6:16 AM EDT) Vitamin B-12 979(H) 250 - 900 pcg/mL LAB CHEMISTRY METHOD 11/24/2024 11:58 AM EDT [facility] Blood Venous blood specimen / Unknown Venipuncture / Unknown 11/24/2024 6:16 AM EDT 11/24/2024 10:32 AM EDT us Vero Mike MD LAB BLOOD ORDERABLES Final Resul t [facility] [address] [place] [address], * (ABNORMAL) Comprehensive metabolic panel (11/24/2024 6:16 AM EDT) Sodium 138 133 - 145 mmol/L LAB CHEMISTRY METHOD 11/24/2024 11:35 AM T [facility] Potassium 4.5 3.5 - 5.5 mmol/L LAB CHEMISTRY METHOD 11/24/2024 11:35 AM [facility] Chloride 104 96 - 110 mmol/L LAB CHEMISTRY METHOD 11/24/2024 11:35 AM [facility] CO2 28 21 - 32 mmol/L LAB CHEMISTRY METHOD 11/24/2024 11:35 AM [facility] Anion Gap 6 3 - 11 LAB CHEMISTRY METHOD 11/24/2024 11:35 AM [facility] Glucose 77 70 - 100 mg/dL LAB CHEMISTRY METHOD 11/24/2024 11:35 AM [facility] BUN 21 5 - 25 mg/dL LAB CHEMISTRY METHOD 11/24/2024 11:35 AM [facility] Creatinine 0.96 0.50 - 1.10 mg/dL LAB CHEMISTRY METHOD 11/24/2024 11:35 AM [facility] eGFR 62 >=60 mL/min/1. 73m2 LAB CHEMISTRY METHOD 11/24/2024 11:35 AM [facility] Comment:Calculation based on the Chronic Kidney Disease Epidemiology Collaboration (CKD-EPI) equation refit without adjustment for race. BUN/Creatinine Ratio 21.9 LAB CHEMISTRY METHOD 11/24/2024 11:35 AM [facility] Calcium 9.2 8.5 - 10.5 mg/dL LAB CHEMISTRY METHOD 11/24/2024 11:35 AM [facility] AST (SGOT) 18 10 - 42 unit/L LAB CHEMISTRY METHOD 11/24/2024 11:35 AM T [facility] ALT (SGPT) 26 10 - 60 unit/L LAB CHEMISTRY METHOD 11/24/2024 11:35 AM [facility] Alkaline Phosphatase 99 42 - 121 unit/L LAB CHEMISTRY METHOD 11/24/2024 11:35 AM [facility] Total Protein 5.6(L) 6.0 - 8.0 g/dL LAB CHEMISTRY METHOD 11/24/2024 11:35 AM [facility] Albumin 3.3 3.2 - 5.0 g/dL LAB CHEMISTRY METHOD 11/24/2024 11:35 AM [facility] Total Bilirubin 0.3 0.0 - 1.4 mg/dL LAB CHEMISTRY METHOD 11/24/2024 11:35 AM [facility] Blood Venous blood specimen / Unknown Venipuncture / Unknown 11/24/2024 6:16 AM EDT 11/24/2024 10:32 AM EDT us Vero Mike MD LAB BLOOD ORDERABLES Final Resul t [facility] [address] [place] [address], * (ABNORMAL) Urinalysis with reflex microscopic (11/15/2024 12:20 PM EDT) Specific [place] Urine 1.012 1.003 - 1.030 LAB URINALYSIS - AUTOMATED METHOD 11/16/2024 9:53 AM [facility] pH, Urine 6.0 5.0 - 8.0 pH LAB URINALYSIS - AUTOMATED METHOD 11/16/2024 9:53 AM [facility] Leukocytes, Urine Small(A) Negative LAB URINALYSIS - AUTOMATED METHOD 11/16/2024 9:53 AM [facility] Nitrite, Urine Negative Negative LAB URINALYSIS - AUTOMATED METHOD 11/16/2024 9:53 AM [facility] Protein, Urine Negative <=Trace mg/dL LAB URINALYSIS - AUTOMATED METHOD 11/16/2024 9:53 AM [facility] Glucose, Urine 100(A) Negative mg/dL LAB URINALYSIS - AUTOMATED METHOD 11/16/2024 9:53 AM [facility] Ketones, Urine Negative Negative mg/dL LAB URINALYSIS - AUTOMATED METHOD 11/16/2024 9:53 AM [facility] Urobilinogen, Urine 0.2 0.2 - 1.0 mg/dL LAB URINALYSIS - AUTOMATED METHOD 11/16/2024 9:53 AM [facility] Bilirubin, Urine Negative Negative LAB URINALYSIS - AUTOMATED METHOD 11/16/2024 9:53 AM [facility] Blood, Urine Negative Negative LAB URINALYSIS - AUTOMATED METHOD 11/16/2024 9:53 AM [facility] RBC, Urine 1.7 0 - 4 /HPF LAB URINALYSIS - AUTOMATED METHOD 11/16/2024 9:53 AM [facility] WBC, Urine 4.4(H) 0 - 4 /HPF LAB URINALYSIS - AUTOMATED METHOD 11/16/2024 9:53 AM [facility] Squamous Epithelial, Urine 42 0 - 60 /LPF LAB URINALYSIS - AUTOMATED METHOD 11/16/2024 9:53 AM [facility] Bacteria, Urine Many(A) Negative /HPF LAB URINALYSIS - AUTOMATED METHOD 11/16/2024 9:53 AM [facility] Hyaline Casts, Urine 1.2 0 - 3 /LPF LAB URINALYSIS - AUTOMATED METHOD 11/16/2024 9:53 AM [facility] Urine Urine specimen obtained by clean catch procedure / Unknown Non-blood Collection / Unknown 11/15/2024 12:20 PM EDT 11/16/2024 9:33 AM EDT us Vero Mike MD LAB URINE ORDERABLES Final Resul t [facility] [address] [place] [address], * (ABNORMAL) Culture urine (11/15/2024 12:20 PM EDT) Culture, Urine >=100,000 CFU/mL Klebsiella pneumoniae ssp pneumoniae(A) ANA 11/18/2024 10:57 AM EDT [facility] ([facility] Comment: This is an edited result. Previous organism was Gram negative bacilli on 11/17/2024 at 0826 EDT. Urine Urine specimen obtained by clean catch procedure / Unknown Non-blood Collection / Unknown 11/15/2024 12:20 PM EDT 11/16/2024 9:33 AM EDT Narrative Organism Antibiotic Method Susceptibility Klebsiella pneumoniae ssp pneumoniae Amoxicillin/Clavulanate ANA 16 ug/ml: Intermediate Klebsiella pneumoniae ssp pneumoniae Ampicillin/Sulbactam ANA >=32 ug/ml: Resistant Klebsiella pneumoniae ssp pneumoniae Piperacillin/Tazobactam NAA >=128 ug/ml: Resistant Klebsiella pneumoniae ssp pneumoniae Cefazolin (Urine) ANA >=32 ug/ml: Resistant Klebsiella pneumoniae ssp pneumoniae Cefoxitin ANA <=4 ug/ml: Susceptible Klebsiella pneumoniae ssp pneumoniae Ceftazidime ANA <=0.5 ug/ml: Susceptible Klebsiella pneumoniae ssp pneumoniae Ceftriaxone ANA <=0.25 ug/ml: Susceptible Klebsiella pneumoniae ssp pneumoniae Cefepime ANA <=0.12 ug/ml: Susceptible Klebsiella pneumoniae ssp pneumoniae Meropenem ANA <=0.25 ug/ml: Susceptible Klebsiella pneumoniae ssp pneumoniae Amikacin ANA <=1 ug/ml: Susceptible Klebsiella pneumoniae ssp pneumoniae Gentamicin ANA <=1 ug/ml: Susceptible Klebsiella pneumoniae ssp pneumoniae Ciprofloxacin ANA <=0.06 ug/ml: Susceptible Klebsiella pneumoniae ssp pneumoniae Levofloxacin ANA <=0.12 ug/ml: Susceptible Klebsiella pneumoniae ssp pneumoniae Nitrofurantoin ANA 64 ug/ml: Intermediate Klebsiella pneumoniae ssp pneumoniae Trimethoprim/Sulfamethoxazo le ANA <=20 ug/ml: Susceptible Vero Mike MD LAB MICROBIOLOGY - GENERAL ORDER ELIU Final Result [facility] ([facility]) [facility] [address] [place] [address], [place] [phone] from Last 3 Months Insurance [employer] MEDICARE Member Subscriber Plan / Payer (Ef fective 2015-Present) Name:Brandie WILLIS Relation to Subscriber:Self Name:Brandie Santana Payer ID:[id number] Group ID:[id number] Type:Not on file Address: [place] [address] [address] [place] [id number] Care Teams Clinical Research Scientist Relationship Specialty Start Date End Date Pascual Darnell MD [address] [place] [address] PCP - General Internal Medicine 06/18/24
--- OUTSIDE RECORDS SUMMARY | 2024-12-08 11:21 | XMS_ITS | Encounter Summary ---
Author Organization [employer] Address [address] [facility] [address] [place] [address] Care Team Providers Care Mailing Machine Helper Name Role Phone Pascual Daly MD Primary Care Provide r Fani Heck PharmD Unavailable [phone] Dasia Waters PharmD Unavailable [phone] Reason for Visit * Reason Comments Med Refill Encounter Details Date Type Department Care Team (Late st Contact Info) Description 03/27/2023 Refill [facility] [address] [place] [address] Titi Gray FNP Major depressive disorder with [...] Care Team (Late st Contact Info) Description 01/03/2025 10:00 AM EDT Medication Management [facility] [address] [place] [address] Dasia Waters, PharmD [address] [place] [address] 01/20/2025 10:30 AM EDT Clinical Support [facility] [address] [place] [address] Amanda Fernández, RN [address] [place] [address] 02/17/2025 10:00 AM EDT Office Visit [facility] [address] [place] [address] Kandy Gabriela [address] [place] [address] documented as of this encounter Goals Goal Patient Goal Type Associated Problems Recent Progress Patient-Stated? Author Blood Pressure < 140/90 Blood Pressure 128/62( 025 3:18 PM EDT) No Fani Heck, PharmD documented as of this encounter Visit Diagnoses Diagnosis Major depressive disorder with psychotic features (CMS/HCC) documented in this encounter Additional Health Concerns Assessment Noted Time PHQ-9 Depression Total Score: 9 02/25/20 11:02 AM EST documented as of this encounter Care Teams Mailing Machine Helper Relationship Specialty Start Date End Date Pascual Daly MD [address] [place] [address] PCP - General Internal Medicine 02/22/14 Fani Heck PharmD [address] [place] [phone] Pharmacist Internal Medicine 12/16/22 08/15/24 Dasia Wtaers PharmD [address] [place] [phone] Pharmacist Internal Medicine 08/16/24 documented as of this encounter
== END 2024-12-08 11:38 | disposition home or self-care (01) ==
LOC: HO.HOS 10:12
PROVIDERS: Visit Provider Orthopaedic Surgery
DX: S52.502A Unspecified fracture of the lower end of left radius, initial encounter for closed fracture (principal); S63.284A Dislocation of proximal interphalangeal joint of right ring finger, initial encounter; M66.242 Spontaneous rupture of extensor tendons, left hand; M05.9 Rheumatoid arthritis with rheumatoid factor, unspecified; E10.649 Type 1 diabetes mellitus with hypoglycemia without coma
CPT/HCPCS: 99215

== ENCOUNTER → 2024-12-08 10:46 | Outpatient (BNV) | payer OTHER, SELFPAY | PROVIDERS: Visit Provider Radiology Diagnostic Radiology | DX: M65.241 Calcific tendinitis, right hand (principal); S52.572D Other intraarticular fracture of lower end of left radius, subsequent encounter for closed fracture with routine healing | CPT/HCPCS: 73110; 73130 ==

== ENCOUNTER 2025-01-04 09:14 | Outpatient (REF) | payer OTHER, SELFPAY ==
--- OUTSIDE RECORDS SUMMARY | 2025-01-04 09:30 | XMS_ITS | Encounter Summary ---
Author Organization [employer] Address [address] [place] [address] Care Team Providers Care Dock Clerk Name Role Phone Pascual Daly MD Primary Care Provide r Dasia Waters PharmD Unavailable [phone] Reason for Referral * Consultation (Routine) - Authorized Specialty Diagnoses / Procedures Referred By Contac t Referred To Contact Urology Diagnoses Mixed stress and urge urinary incontinence Pascual Daly MD [address] [place] [phone] Phone: tel: fax: [facility] Referral ID Status Reason Start Date Expiration Date Visits Requested Visits Authorized [id number] Authorized Specialty Services Required 01/04/2025 01/04/2026 1 1 Encounter Details Date Type Department Care Team (Latest Contact Info) Description 01/04/2025 9:30 AM EDT Office Visit [facility] MEDICINE [address] [place] [address] [phone] Pascual Daly MD [address] [place] [address] [phone] Hospital discharge follow-up (Primary Dx); Type 2 diabetes mellitus with right eye affected by mild nonproliferative retinopathy without macular edema, with long-term current use of insulin (CMS/HCC); Rheumatoid arthritis involving multiple sites with positive rheumatoid factor ([facility]/HCC); Major depressive disorder with psychotic features (CMS/HCC); Mixed stress and urge urinary incontinence; Sore throat Social History Tobacco Use Types Packs/Day Years Used Date Smoking Tobacco: Never Passive Smoke Exposure: Never Smokeless Tobacco: Never Tobacco Cessation:Counseling Given: Not Answered Alcohol Use Standard Drinks/Week Comments Never 0 (1 standard drink = 0.6 oz pur e alcohol) Depression Answer Date Recorded Patient Health Questionnaire-9 Score 12 01/04/2025 Patient Health Questionnaire-9 Score 12 01/04/2025 Last PHQ-9: Questionnaire Data Not on file 0 01/04/2025 Housing Stability Answer Date Recorded What is [...] Date Recorded Patient Health Questionnaire-2 Score 2 01/04/2025 Internet Access Answer Date Recorded Internet Access [...] Sign Reading Time Taken Comments Blood Pressure 126/59 01/04/2025 9:28 AM EDT Pulse 78 01/04/2025 9:28 AM EDT Temperature 36.7 C (98 F) 01/04/2025 9:28 AM EDT Respiratory Rate 18 01/04/2025 9:28 AM EDT Oxygen Saturation 98% 01/04/2025 9:28 AM EDT Inhaled Oxygen Concentration - - Weight 68.3 kg (150 lb 9.6 oz) 01/04/2025 9:28 A M EDT Height 147.3 cm (4' 10 ) 01/04/2025 9:28 AM EDT Body Mass Index 31.48 01/04/2025 9:28 AM EDT documented in this encounter Functional Status * Over the past 2 weeks, how often have you been bothered by any of the following problems? Question Answer Date of Assessment Author Patient Health Questionnaire -2 Score 2 01/04/2025 9:30 AM Kimi Pichardo MA * Little interest or pleasure in doing things Answer Date of Assessment Author Several days 01/04/2025 9:30 AM Clement Pichardo MA * Feeling down, depressed, or hopeless Answer Date of Assessment Author Several days 01/04/2025 9:30 AM Clement Pichardo MA * Trouble falling or staying asleep, or sleeping too much Answer Date of Assessment Author Several days 01/04/2025 9:30 AM Clement Pichardo MA * Feeling tired or having little energy Answer Date of Assessment Author Several days 01/04/2025 9:30 AM Clement Pichardo MA * Poor appetite or overeating Answer Date of Assessment Author Several days 01/04/2025 9:30 AM Clement Pichardo MA * Feeling bad about yourself - or that you are a failure or have let yourself or your family down Answer Date of Assessment Author Several days 01/04/2025 9:30 AM Clement Pichardo MA * Trouble concentrating on things, such as reading the newspaper or watching television Answer Date of Assessment Author Nearly every day 01/04/2025 9:30 AM Kimi Pichardo MA * Moving or speaking so slowly that other people could have noticed? Or the opposite - being so fidgety or restless that you have been moving around a lot more than usual. Answer Date of Assessment Author Nearly every day 01/04/2025 9:30 AM Kimi Pichardo MA * Thoughts that you would be better off or hurting yourself in some way Answer Date of Assessment Author Not at all 01/04/2025 9:30 AM Clement Pichardo MA * Patient Health Questionnaire-9 Score Answer Date of Assessment Author 12 01/04/2025 9:30 AM Clement Pichardo MA * How difficult have these problems made it for you to do your work, take care of things at home, or get along with other people? Answer Date of Assessment Author Very difficult 01/04/2025 9:30 AM Clement Pichardo MA * Over the last 2 weeks, how often have you been bothered by any of the following problems? Question Answer Date of Assessment Author Feeling nervous, anxious, or on edge 2 01/04/2025 9:31 AM Kimi Pichardo MA Not being able to stop or co ntrol worrying 1 01/04/2025 9:31 AM Kimi Pichardo MA Worrying too much about diff erent things 3 01/04/2025 9:31 AM Kimi Pichardo MA Trouble relaxing 3 01/04/2025 9:31 AM Kimi Easton MA Being so restless that it is hard to sit still 3 01/04/2025 9:31 AM Kimi Pichardo MA Becoming easily annoyed or irritable 3 01/04/2025 9:31 AM Kimi Pichardo MA Feeling afraid as if somethi ng awful might happen 3 01/04/2025 9:31 AM Kimi Pichardo MA TRISTAN-7 Total Score 18 01/04/2025 9:31 AM Kimi Pichardo MA documented as of this encounter Progress Notes * Pascual Terry MD - 01/04/2025 9:30 AM EDT SUBJECTIVE Brandie Santana is a 74 y.o. female who presents for No chief complaint on file.. Brandie Santana, 74 years Urinary Incontinence - Reports urinary leakage when coughing, straining, or rushing to the bathroom - Difficulty reaching the bathroom in time Psychiatric Care - Currently seeing a psychiatrist and counselor Diabetes She presents for her follow-up diabetic visit. She has type 2 diabetes mellitus. Pertinent negatives for hypoglycemia include no headaches. Pertinent negatives for diabetes include no chest pain. Review of Systems Constitutional: Negative for fever. HENT: Negative for sore throat. Respiratory: Negative for cough and shortness of breath. Cardiovascular: Negative for chest pain. Gastrointestinal: Negative for abdominal pain. Neurological: Negative for headaches. Allergies[1] OBJECTIVE Vitals: 01/04/25 0928 BP: 126/59 BP Location: Left arm Patient Position: Sitting BP Cuff Size: Adult Pulse: 78 Resp: 18 Temp: 98 ??F (36.7 ??C) TempSrc: Oral SpO2: 98% Weight: 150 lb 9.6 oz (68.3 kg) Height: 4' 10 (1.473 m) Physical Exam Vitals reviewed. Constitutional: Appearance: Normal appearance. HENT: Head: Normocephalic and atraumatic. Right Ear: External ear normal. Left Ear: External ear normal. Nose: Nose normal. Mouth/Throat: Lips: [place]. Mouth: Mucous membranes are moist. Pharynx: Oropharynx is clear. Uvula midline. Eyes: Conjunctiva/sclera: Conjunctivae normal. Cardiovascular: Rate and Rhythm: Normal rate and regular rhythm. Pulmonary: Effort: Pulmonary effort is normal. Breath sounds: Normal breath sounds. Skin: General: Skin is warm. Neurological: Mental Status: She is alert. Mental status is at baseline. Assessment/Plan Problem List Items Addressed This Visit Hospital discharge follow-up - Primary Patient admitted to [facility] from (11/08/24 - 11/10/24) S/P fall and head injury at the visit with hematology. Eventually admitted for head injury and wrist injury. Patient's 4th finger was dislocated, lip, nose, and forehead were lacerated. Physical Therapy recommended rehabilitation. Eventually discharged to [facility] for not meeting medical necessity for hospitalization. Instructed to follow up with orthopedics team. She was at [facility] from 11/10/24 - 12/17/24 Discharged home with medications and penitentiary services. Instructed to follow up with PCP with us in 7 to 10 days. Today she feels fine, no complaints, has a follow up with orthopedics tomorrow Type 2 diabetes mellitus with right eye affected by mild nonproliferative retinopathy without macular edema, with long-term current use of insulin ([facility]) Pt here for a f/u She is under the care of Endocrinology last seen 11/08/2024 She is on: Tresiba 18 units Fiasp 100-151 unit 151-200 4 units 201-250 5 units 250-300 6 year Over 300 70 units She has a VNA at home. Hgb A1c 11/24/2024: 8.9 from 7.8 Eye exam done on: 12/2023 [facility] Dx with new [...] on a daily basis. Relevant Orders POCT Glucose (Completed) Rheumatoid arthritis involving multiple sites with positive rheumatoid factor ([facility]) Under the care of Rheumatology on Actemra 162, last note 10/2023 Major depressive disorder with psychotic features ([facility]) Titi Gray retired She has a new Psychiatrist and a psychotherapist in [place] She tells me she is taking Effexor, Klonopin and another one she cannot remember Urinary incontinence Pt with c/o this Plan: U/A Urology referral Relevant Orders Referral to Urology Sore throat Exam: normal Rapid strep, Flu and Covid: Negative Plan: supportive measures Relevant Orders POCT Rapid Influenza B BALL ID NOW (Completed) POCT Rapid Covid-19 BALL ID NOW (Completed) POCT Rapid Covid-19 BinaxNOW (Completed) POCT Rapid Strep A BALL ID NOW (Completed) This note was drafted using Ambient (AI) technology. The patient/patient's guardian has been informed and has consented to the use of this technology: Yes Future Appointments Date Time Provider Department Center 01/17/2025 10:30 AM Dasia Waters PharmD MEDICINE [facility] 01/20/2025 10:30 AM Amanda Fernández RN [facility] MED [facility] 01/26/2025 9:00 AM Christian Winchester DDS [facility] 02/17/2025 10:15 AM Gabriela Gaitan ADLT DENT [facility] [1] Allergies Allergen Reactions Celecoxib Nausea Only and Unknown Lorazepam Unknown Naproxen Unknown Tramadol Hives and Unknown Zolpidem Anxiety and Unknown documented in this encounter Miscellaneous Notes * Assessment & Plan Note - Pascual Terry MD - 01/04/2025 9:34 AM EDT Associated Problem(s): Sore throat Exam: normal Rapid strep, Flu and Covid: Negative Plan: supportive measures * Assessment & Plan Note - Pascual Terry MD - 01/04/2025 9:32 AM EDT Associated Problem(s): Urinary incontinence Pt with c/o this Plan: U/A Urology referral * Addendum Note - Kimi Shirley MA - 01/04/2025 9:30 AM EDTAddended by: KIMI SHIRLEY on: 01/04/2025 10:08 AM Modules accepted: Orders * Assessment & Plan Note - Pascual Terry MD - 01/04/2025 9:24 AM EDT Associated Problem(s): Major depressive disorder with psychotic features (CMS/HCC) Titi Puentesjuliana retired She has a new Psychiatrist and a psychotherapist in [place] She tells me she is taking Effexor, Klonopin and another one she cannot remember * Assessment & Plan Note - Pascual Terry MD - 01/04/2025 9:23 AM EDT Associated Problem(s): Rheumatoid arthritis involving multiple sites with positive rheumatoid factor ([facility]) Under the care of Rheumatology on Actemra 162, last note 10/2023 * Assessment & Plan Note - Pascual Terry MD - 01/04/2025 9:21 AM EDT Associated Problem(s): Type 2 diabetes mellitus with right eye affected by mild nonproliferative retinopathy without macular edema, with long-term current use of insulin ([facility]) Pt here for a f/u She is under the care of Endocrinology last seen 11/08/2024 She is on: Tresiba 18 units Fiasp 100-151 unit 151-200 4 units 201-250 5 units 250-300 6 year Over 300 70 units She has a VNA at home. Hgb A1c 11/24/2024: 8.9 from 7.8 Eye exam done on: 12/2023 [facility] Dx with new mild DR OD Microalbumin checked on: 07/02/2023 was: 59 On Losartan 25 mg po daily Plan: Continue current plan as per Endocrinology. Foot check not done Pt reports compliance with Plavix no longer on ASA Pt advised to: adhere to diabetic diet check your blood sugars regularly check your feet on a daily basis. * Assessment & Plan Note - Pascual Terry MD - 01/04/2025 9:18 AM EDT Associated Problem(s): Hospital discharge follow-up Patient admitted to [facility] from (11/08/24 - 11/10/24) S/P fall and head injury at the visit with hematology. Eventually admitted for head injury and wrist injury. Patient's 4th finger was dislocated, lip, nose, and forehead were lacerated. Physical Therapy recommended rehabilitation. Eventually discharged to [facility] for not meeting medical necessity for hospitalization. Instructed to follow up with orthopedics team. She was at [facility] from 11/10/24 - 12/17/24 Discharged home with medications and penitentiary services. Instructed to follow up with PCP with us in 7 to 10 days. Today she feels fine, no complaints, has a follow up with orthopedics tomorrow documented in this encounter Plan of Treatment Upcoming Encounters Date Type Department Care Team (Late st Contact Info) Description 01/17/2025 10:30 AM EDT Medication Management [facility] MEDICINE [address] [place] [address] Dasia Waters, KristiD [address] [place] [address] 01/20/2025 10:30 AM EDT Clinical Support [facility] [address] [place] [address] Amanda Fernández, RN [address] [place] [address] 01/26/2025 9:00 AM EDT Office Visit [facility] ADULT DENTAL [address] [place] [address] Christian Winchester DDS [address] [place] [address] 02/17/2025 10:15 AM EDT Office Visit [facility] ADULT DENTAL [address] [place] [address] Gabriela Gaitan [address] [place] [address] Scheduled Referrals Name Type Priority Associated Diagnoses Orde r Schedule Referral to Urology Outpatient Referral Routine Mixed stress and urge urinary incontinence Expected: 01/04/2025 (Approximate), Expires: 01/04/2026 documented as of this encounter Goals Goal Patient Goal Type Associated Problems Recent Progress Patient-Stated? Author Blood Pressure < 140/90 Blood Pressure 126/59( 025 9:28 AM EDT) No Fani Heck, PharmD documented as of this encounter Procedures Procedure Name Priority Date/Time Associated Diagnosis Comments POCT INFLUENZA A Routine 01/04/2025 10:0 8 AM EDT Sore throat POCT INFLUENZA B (ID NOW RAPID MOLECULAR) Routine 01/04/2025 9:54 AM EDT Sore throat POCT COVID-19 AG BALL ID NOW Routine 01/04/2025 9:54 AM EDT Sore throat POC BALL ID NOW STREP A Routine 01/04/2025 9:51 AM EDT Sore throat POCT RAPID COVID ANTIGEN Routine 01/04/2025 9:51 AM EDT Sore throat POCT GLUCOSE Routine 01/04/2025 9:29 AM EDT Type 2 diabetes mellitus with right eye affected by mild nonproliferative retinopathy without macular edema, with long-term current use of insulin ([facility]) documented in this encounter Results * POCT Rapid Influenza A OSOM (01/04/2025 10:08 AM EDT) Rapid Influenza A Ag Negative Negative, Indeterminate QC Media Lot # [id number] Lot# Expiration Date ,,026 Swab Nasopharyngeal structure / Unknown 01/04/2025 10:08 AM EDT us Pascual Farfan Harrison MD POINT OF CARE TEST EN TER/EDIT ORDERABLES Final Result * POCT Rapid Covid-19 BALL ID NOW (01/04/2025 9:54 AM EDT) [facility] [address] Coronavirus Antigen PCR Negative Negative, Indeterminate, None Detected, Invalid, Specimen unsatisfactory for evaluation, Weakly Positive, 2+ QC Media Lot # [id number] Lot# Expiration Date ,026 Swab 01/04/2025 9:54 AM EDT Pascual Terry MD POINT OF CARE TEST EN TER/EDIT ORDERABLES Final Result * POCT Rapid Influenza B BALL ID NOW (01/04/2025 9:54 AM EDT) [facility] [address] Influenza B Negative Negative, Indeterminate [facility] QC Media Lot # [id number] [facility] Lot# Expiration Date [facility] Swab 01/04/2025 9:54 AM EDT Result [facility] Pascual Terry MD POINT OF CARE TEST EN TER/EDIT ORDERABLES Final Result [facility] [address] [place] [phone] * POCT Rapid Strep A BALL ID NOW (01/04/2025 9:51 AM EDT) [facility] [address] Rapid Strep A Screen Negative Negative, None Detected QC Media Lot # [id number] Lot# Expiration Date ,026 Swab 01/04/2025 9:51 AM EDT Result [facility] Pascual Terry MD POINT OF CARE TEST EN TER/EDIT ORDERABLES Final Result * POCT Rapid Covid-19 BinaxNOW (01/04/2025 9:51 AM EDT) Rapid COVID Ag Negative QC Media Lot # [id number] Lot# Expiration Date , Swab 01/04/2025 9:51 AM EDT Pascual Terry MD POINT OF CARE TEST EN TER/EDIT ORDERABLES Final Result * POCT Glucose (01/04/2025 9:29 AM EDT) Glucose Blood, POC 182 60 - 200 mg/dL QC Media Lot # [id number] Lot# Expiration Date 857, Blood Capillary blood specimen / Unknown 01/04/2025 9:29 AM EDT Pascual Terry MD POINT OF CARE TEST EN TER/EDIT ORDERABLES Final Result documented in this encounter Visit Diagnoses Diagnosis Hospital discharge follow-up- Primary Other follow-up examination Type 2 diabetes mellitus with right eye affected by mild nonproliferative retinopathy without macular edema, with long-term current use of insulin (CMS/HCC) Rheumatoid arthritis involving multiple sites with positive rheumatoid factor (CMS/HCC) Major depressive disorder with psychotic features (CMS/HCC) Mixed stress and urge urinary incontinence Mixed incontinence urge and stress (male)(female) Sore throat Acute pharyngitis documented in this encounter Additional Health Concerns Assessment Noted Time PHQ-9 Depression Total Score: 12 025 9:30 AM EDT documented as of this encounter Care Teams Dock Clerk Relationship Specialty Start Date End Date Pascual Daly MD [address] [place] [address] PCP - General Internal Medicine 02/22/14 Dasia Waters PharmD [address] [place] [address] Pharmacist Internal Medicine 08/16/24 Iker CORDERO 12/18/24 documented as of this encounter
--- OUTSIDE RECORDS SUMMARY | 2025-01-04 11:36 | XMS_ITS | Encounter Summary ---
Author Organization [employer] Address [address] [facility] 7t [place] [address] Care Team Providers Care Steam Room Attendant Name Role Phone Pascual Daly MD Primary Care Provide r Fani Heck PharmD Unavailable [phone] Dasia Waters PharmD Unavailable [phone] Reason for Visit * Reason Onset Date Comments Appointment Request 09/03/2022 Encounter Details Date Type Department Care Team ([facility] st Contact Info) Description 09/03/2022 Telephone [facility] MEDICINE [address] [place], [place] [phone] Pascual Daly MD [address] [place], [place] [phone] Appointment Request Social History Tobacco Use Types [...] Description 01/17/2025 10:30 AM EDT Medication Management [facility] MEDICINE [address] [place] [address] Dasia Waters PharmD [address] [place] [address] 01/20/2025 10:30 AM EDT Clinical Support [facility] CHC MED & PEDS [address] [place] [address] Amanda Fernández, RN [address] [place] [address] 01/26/2025 9:00 AM EDT Office Visit [facility] ADULT DENTAL [address] [place] [address] Christian Winchester DDS [address] [place] [address] 02/17/2025 10:15 AM EDT Office Visit [facility] ADULT DENTAL [address] [place] [address] Gabriela Gaitan [address] [place] [address] documented as of this encounter Goals Goal Patient Goal Type Associated Problems Recent Progress Patient-Stated? Author Blood Pressure < 140/90 Blood Pressure 126/59( 025 9:28 AM EDT) No Fani Heck, KristiD documented as of this encounter Visit Diagnoses Not on filedocumented in this encounter Additional Health Concerns Assessment Noted Time PHQ-9 Depression Total Score: 8 07/05/19 23 9:26 AM EDT documented as of this encounter Care Teams Steam Room Attendant Relationship Specialty Start Date End Date Pascual Daly MD [address] [place] [address] PCP - General Internal Medicine 02/22/14 Fani Heck, KristiD [address] [place] [address] Pharmacist Internal Medicine 12/16/22 08/15/24 Dasia Waters PharmD [address] [place] [phone] Pharmacist Internal Medicine 08/16/24 Iker MARCUSA 12/18/24 documented as of this encounter
--- OUTSIDE RECORDS SUMMARY | 2025-01-04 11:36 | XMS_ITS | Encounter Summary ---
Author Organization [employer] Address [address] [facility] 7t [place] [address] Care Team Providers Care Metal Patternmaker Name Role Phone Pascual Daly MD Primary Care Provide r Dasia Waters PharmD Unavailable [phone] Reason for Visit * Reason Onset Date Comments Med Refill 09/30/2024 Encounter Details Date Type Department Care Team ([facility] st Contact Info) Description 09/30/[address] [facility] MEDICINE [address] [place] [address] Pascual Daly MD [address] [place] [address] Med Refill Social History Tobacco Use Types [...] * Telephone Encounter - Hafsa Camacho - 09/30/2024 8:56 AM EDT TC from pt requesting medication refill. Medications needing refill : oxyCODONE (Roxicodone) 5 MG immediate release tablet To be sent to: [facility] documented in this encounter Plan of Treatment Upcoming Encounters Date Type Department Care Team (Late st Contact Info) Description 01/17/2025 10:30 AM EDT Medication Management [facility] MEDICINE [address] [place] [address] Dasia Waters, PharmD [address] [place] [address] 01/20/2025 10:30 AM EDT Clinical Support [facility] MED & PEDS [address] [place] [address] Amanda Fernández, RN [address] [place] [address] 01/26/2025 9:00 AM EDT Office Visit [facility] ADULT DENTAL [address] [place], [place] [phone] Christian Winchester DDS [address] [place], [place] [phone] 02/17/2025 10:15 AM EDT Office Visit [facility] ADULT DENTAL [address] [place], [place] [phone] Gabriela Gaitan [address] [place], [place] [phone] documented as of this encounter Goals Goal [...] as of this encounter Care Teams Metal Patternmaker Relationship Specialty Start Date End Date Pascual Daly MD [address] [place], [place] [phone] PCP - General Internal Medicine 02/22/14 Dasia Waters PharmD [address] [place] [address] [phone] Pharmacist Internal Medicine 08/16/24 Iker MARCUSA 12/18/24 documented as of this encounter
--- OUTSIDE RECORDS SUMMARY | 2025-01-04 11:36 | XMS_ITS | Encounter Summary ---
Author Organization [employer] Address [address] [facility] 7t [place] [address] Care Team Providers Care Net Fisher Name Role Phone Pascual Daly MD Primary Care Provide r Fani Heck PharmD Unavailable [phone] Dasia Waters PharmD Unavailable [phone] Reason for Visit * Reason Comments Med Refill Encounter Details Date Type Department Care Team ([facility] st Contact Info) Description 03/27/[address] [facility] MED [facility] PEDS [address] [place] [address] Titi Gray FNP Major depressive disorder with [...] Medication Management [facility] MEDICINE [address] [place] [address] Dasia Waters, PharmD [address] [place] [address] 01/20/2025 10:30 AM EDT Clinical Support [facility] MED [facility] PEDS [address] [place] [address] Amanda Fernández, RN [address] [place] [address] 01/26/2025 9:00 AM EDT Office Visit [facility] ADULT DENTAL [address] [place] [address] Christian Winchester DDS [address] [place] [address] 02/17/2025 10:15 AM EDT Office Visit [facility] ADULT DENTAL [address] [place] [address] Gabreila Gaitan [address] [place] [address] documented as of this encounter Goals Goal [...] documented as of this encounter Care Teams Net Fisher Relationship Specialty Start Date End Date Pascual Daly MD [address] [place] [phone] PCP - General Internal Medicine 02/22/14 Fani Heck, PharmD [address] [place] [phone] Pharmacist Internal Medicine 12/16/22 08/15/24 Dasia Waters PharmD [address] [place] [phone] Pharmacist Internal Medicine 08/16/24 Iker VNA 12/18/24 documented as of this encounter
--- OUTSIDE RECORDS SUMMARY | 2025-01-04 11:36 | XMS_ITS | Encounter Summary ---
Author Organization [employer] Address [address] [facility] 7t [place] [address] Care Team Providers Care Ceramic Tile Setter Name Role Phone Pascual Daly MD Primary Care Provide r Fani Heck PharmD Unavailable +5 Dasia Waters PharmD Unavailable [phone] Reason for Visit * Reason Comments Med Refill Encounter Details Date Type Department Care Team (Late Contact Info) Description 10/02/2022 Refill [facility] MEDICINE [address] [place], [place] [phone] Titi Gray FNP Major depressive disorder with [...] Department Care Team (Late Contact Info) Description 01/17/2025 10:30 AM EDT Medication Management [facility] MEDICINE [address] [place], [place] [phone] Dasia Waters PharmD [address] [place], [place] [phone] 01/20/2025 10:30 AM EDT Clinical Support [facility] CHC MED & PEDS [address] [place], [place] [phone] Amanda Fernández, RN [address] [place], [place] 01/26/2025 9:00 AM EDT Office Visit [facility] ADULT DENTAL [address] [place] [address] Christian Winchester DDS [address] [place] [address] 02/17/2025 10:15 AM EDT Office Visit [facility] ADULT DENTAL [address] [place] [address] Gabriela Gaitan [address] [place] [address] documented as of this encounter Goals Goal [...] documented as of this encounter Care Teams Ceramic Tile Setter Relationship Specialty Start Date End Date Pascual Daly MD [address] [place] [address] PCP - General Internal Medicine 02/22/14 Fani Heck, PharmD [address] [place] [address] Pharmacist Internal Medicine 12/16/22 08/15/24 Dasia Waters, PharmD [address] [place] [address] Pharmacist Internal Medicine 08/16/24 Iker CORDERO 12/18/24 documented as of this encounter
--- OUTSIDE RECORDS SUMMARY | 2025-01-04 11:36 | XMS_ITS | Encounter Summary ---
Author Organization [employer] Address [address] 7t [place] [address] Care Team Providers Care Visual Merchandiser Name Role Phone Pascual Daly MD Primary Care Provide r Fani Heck PharmD Unavailable + Dasia Waters PharmD Unavailable [phone] Encounter Details Date Type Department Care Team (Late st Contact Info) Description 03/05/2024 Refill [facility] MEDICINE [address] [place] [address] Jefry Chun Benign hypertension; Type 2 diabetes mellitus without complication, with long-term current use of insulin ([facility]) Social History Tobacco Use Types [...] your housing situation today? I have sarahy apntoja 07/24/[address] you li [...] Description 01/17/2025 10:30 AM EDT Medication Management [facility] MEDICINE [address] [place] [address] Dasia Waters, KristiD [address] [place] [address] 01/20/2025 10:30 AM EDT Clinical Support [facility] CHC MED & PEDS [address] [place] [address] Amanda Fernández, RN [address] [place] [address] 01/26/2025 9:00 AM EDT Office Visit [facility] ADULT DENTAL [address] [place] [address] Christian Winchester DDS [address] [place] [address] 02/17/2025 10:15 AM EDT Office Visit [facility] ADULT DENTAL [address] [place] [address] Gabriela Gaitan [address] [place] [address] documented as of this encounter Goals Goal Patient Goal Type Associated Problems Recent Progress Patient-Stated? Author Blood Pressure < 140/90 Blood Pressure 126/59( 025 9:28 AM EDT) No Fani Heck, PharmD documented as of this encounter Visit Diagnoses Diagnosis Benign hypertension Essential hypertension, benign Type 2 diabetes mellitus without complication, with long-term current use of insulin ([facility]) documented in this encounter Additional Health Concerns Assessment Noted Time PHQ-9 Depression Total Score: 9 01/29/20 24 11:00 AM EDT documented as of this encounter Care Teams Visual Merchandiser Relationship Specialty Start Date End Date Pascual Daly MD [address] [place] [address] PCP - General Internal Medicine 02/22/14 Fani Heck, PharmD [address] [place] [address] Pharmacist Internal Medicine 12/16/22 08/15/24 Dasia Waters PharmD [address] [place] [address] Pharmacist Internal Medicine 08/16/24 Iker MARCUSA 12/18/24 documented as of this encounter
--- OUTSIDE RECORDS SUMMARY | 2025-01-04 11:36 | XMS_ITS | Encounter Summary ---
Author Organization [employer] Address [address] [facility] 7t [place] [address] Care Team Providers Care Network Contract Manager Name Role Phone Pascual Daly MD Primary Care Provide r Fani Heck PharmD Unavailable [phone] Dasia Waters PharmD Unavailable [phone] Reason for Visit * Reason Comments Med Refill Encounter Details Date Type Department Care Team (Late st Contact Info) Description 07/20/2023 Refill [facility] MEDICINE [address] [place] [address] Titi Gray FNP Major depressive disorder with [...] Description 01/17/2025 10:30 AM EDT Medication Management [facility] MEDICINE [address] [place] [address] Dasia Waters, KristiD [address] [place] [address] 01/20/2025 10:30 AM EDT Clinical Support [facility] CHC MED & PEDS [address] [place] [address] Amanda Fernández, RN [address] [place] [address] 01/26/2025 9:00 AM EDT Office Visit [facility] ADULT DENTAL [address] [place] [address] Christian Winchester DDS [address] [place] [address] 02/17/2025 10:15 AM EDT Office Visit [facility] ADULT DENTAL [address] [place] [address] Gabriela Gaitan [address] [place] [address] documented as of this encounter Goals Goal [...] as of this encounter Care Teams Network Contract Manager Relationship Specialty Start Date End Date Pascual Daly MD [address] [place] [address] PCP - General Internal Medicine 02/22/14 Fani Heck, PharmD [address] [place] [address] Pharmacist Internal Medicine 12/16/22 08/15/24 Dasia Waters PharmD [address] [place] [address] Pharmacist Internal Medicine 08/16/24 Iker VNA 12/18/24 documented as of this encounter
--- OUTSIDE RECORDS SUMMARY | 2025-01-04 11:36 | XMS_ITS | Encounter Summary ---
Author Organization [employer] Address [address] [facility] 7t [place] [address] Care Team Providers Care Pewter Caster Name Role Phone Pascual Daly MD Primary Care Provide r Fani Heck PharmD Unavailable [phone] Dasia Waters PharmD Unavailable [phone] Reason for Visit * Reason Comments Med Refill Encounter Details Date Type Department Care Team ([facility] st Contact Info) Description 01/14/2024 Refill [facility] CHC MED & PEDS [address] [place] [address] Pascual Daly MD [address] [place], [place] [phone] Fibromyalgia Social History Tobacco Use Types Packs/Day [...] Description 01/17/2025 10:30 AM EDT Medication Management [facility] MEDICINE [address] [place] [address] Dasia Waters, PharmD [address] [place] [address] 01/20/2025 10:30 AM EDT Clinical Support [facility] CHC MED & PEDS [address] [place] [address] Amanda Fernández, RN [address] [place] [address] 01/26/2025 9:00 AM EDT Office Visit [facility] ADULT DENTAL [address] [place] [address] Christian Winchester DDS [address] [place] [address] 02/17/2025 10:15 AM EDT Office Visit [facility] ADULT DENTAL [address] [place] [address] Gabriela Gaitan [address] [place] [address] documented as of this encounter Goals Goal Patient Goal Type Associated Problems Recent Progress Patient-Stated? Author Blood Pressure < 140/90 Blood Pressure 126/59( 025 9:28 AM EDT) No Fani Heck, Woody documented as of this encounter Visit Diagnoses Diagnosis Fibromyalgia Unspecified myalgia and myositis documented in this encounter Additional Health Concerns Assessment Noted Time PHQ-9 Depression Total Score: 11 024 10:24 AM EST documented as of this encounter Care Teams Pewter Caster Relationship Specialty Start Date End Date Pascual Daly MD [address] [place] [address] PCP - General Internal Medicine 02/22/14 Fani Heck, Woody [address] [place] [address] Pharmacist Internal Medicine 12/16/22 08/15/24 Dasia Waters PharmD [address] [place] [address] Pharmacist Internal Medicine 08/16/24 Iker MARCUSA 12/18/24 documented as of this encounter
--- OUTSIDE RECORDS SUMMARY | 2025-01-04 11:36 | XMS_ITS | Encounter Summary ---
Author Organization [employer] Address [address] [facility] 7t [place] [address] Care Team Providers Care Rn Labor And Delivery Name Role Phone Pascual Daly MD Primary Care Provide r Fani Heck PharmD Unavailable [phone] Dasia Waters PharmD Unavailable [phone] Encounter Details Date Type Department Care Team (Late st Contact Info) Description 09/25/2023 Telephone [facility] MEDICINE [address] [place] [address] Pascual Daly MD [address] [place] [address] Social History Tobacco Use Types Packs/Day Years [...] Description 01/17/2025 10:30 AM EDT Medication Management [facility] MEDICINE [address] [place] [address] Dasia Waters, PharmD [address] [place] [address] 01/20/2025 10:30 AM EDT Clinical Support [facility] CHC MED & PEDS [address] [place] [address] Amanda Fernández, RN [address] [place] [address] 01/26/2025 9:00 AM EDT Office Visit [facility] ADULT DENTAL [address] [place] [address] Christian Winchester DDS [address] [place] [address] 02/17/2025 10:15 AM EDT Office Visit [facility] ADULT DENTAL [address] [place] [address] Gabriela Gaitan [address] [place] [address] documented as of this encounter Goals Goal [...] as of this encounter Care Teams Rn Labor And Delivery Relationship Specialty Start Date End Date Pascual Daly MD [address] [place] [address] PCP - General Internal Medicine 02/22/14 Fani Heck, PharmD [address] [place] [address] Pharmacist Internal Medicine 12/16/22 08/15/24 Dasia Waters PharmD [address] [place] [address] Pharmacist Internal Medicine 08/16/24 Iker VNA 12/18/24 documented as of this encounter
--- OUTSIDE RECORDS SUMMARY | 2025-01-04 11:36 | XMS_ITS | Clinical Summary ---
Author Organization [facility] Address [address] [place] [address] Phone Care Team Providers Care Humidifier Operator Name Role Phone Pascual Darnell MD Primary Care Provi chio Allergies Active Allergy Reactions Criticality Noted Date Comments Clonazepam 09/02/2024 Medications No known medications Encounters Date Type Department Care Team Description 11/23/[address] [facility] Lab [address] [place] [address] Vero Mike MD Type 1 diabetes mellitus with hyperglycemia (CMS/HCC V24, CMS/[facility] V28); Old myocardial infarction; Essential (primary) hypertension; Vitamin D deficiency, unspecified 11/16/[address] [facility] Lab [address] [place] [address] Vero Mike MD Altered mental status, unspecified from [...] Care Team (Late st Contact Info) Description 03/15/2025 10:15 AM EST Office Visit [facility] [place] [address] [facility] 250 [place] [address] Luciano Smith, DPM [address] [address] Health Maintenance Due Date Last Done Comments Breast Cancer Screening 1950 Diabetes: Annual Foot Exam 02/08/1960 Diabetes: Annual Retina Eye Exam 02/08/1960 Colorectal Cancer Screening: Colonoscopy 11/21/2023 Falls Risk Assessment 11/21/2023 Medicare Annual Wellness Visit 11/21/2023 Osteoporosis Screening (Bone Density Screening) 11/21/2023 Social Influencers of Health Screening 11/21/2023 Depression Screening 04/21/2024 Diabetes: Annual Urine Albumin-Creatinine Ratio (uACR) 06/18/2024 COVID-19 Vaccine ( season) 2024 04/18/2022, 09/04/2021, 03/05/2021, Additional history exists Influenza Vaccine (#1) 2024 , 03/11/2023, 01/15/2023, [...] EDT Type 1 diabetes mellitus with hyperglycemia ([facility] V24, [facility] V28) Old myocardial infarction Essential (primary) hypertension Vitamin D deficiency, unspecified URINALYSIS WITH REFLEX MICROSCOPIC Routine 11/15/2024 12:20 PM EDT Altered mental status, unspecified URINALYSIS WITH REFLEX MICROSCOPIC Routine 11/15/2024 12:20 PM EDT Altered mental status, unspecified CULTURE URINE Routine 11/15/2024 12:20 PM EDT Altered mental status, unspecified from Last 3 Months Results * Vitamin D 25 hydroxy (11/24/2024 6:16 AM EDT) Vit D, 25-Hydroxy 50.1 30.0 - 80.0 ng/mL LAB CHEMISTRY METHOD 11/24/2024 1:30 PM EDT [facility] LAB Blood Venous blood specimen / Unknown Venipuncture / Unknown 11/24/2024 6:16 AM EDT 11/24/2024 10:32 AM EDT us Vero Mike MD LAB BLOOD ORDERABLES Final Resul t [facility] LAB [address] [place] [address], * (ABNORMAL) Complete blood count (11/24/2024 6:16 AM EDT) WBC 8.5 4.8 - 10.8 K/[facility] LAB HEMETOLOGY METHOD 11/24/2024 11:00 AM EDT [facility] LAB RBC 3.80 3.80 - 4.80 M/mcL LAB HEMETOLOGY METHOD 11/24/2024 11:00 AM EDT [facility] LAB Hemoglobin 10.4(L) 11.5 - 16.0 g/dL LAB HEMETOLOGY METHOD 11/24/2024 11:00 AM [facility] LAB Hematocrit 32.5(L) 35.0 - 47.0 % LAB HEMETOLOGY METHOD 11/24/2024 11:00 AM [facility] LAB MCV 86.2 79.0 - 98.0 FL LAB HEMETOLOGY METHOD 11/24/2024 11:00 AM [facility] LAB MCH 27.6 27.0 - 32.0 pcg LAB HEMETOLOGY METHOD 11/24/2024 11:00 AM [facility] LAB MCHC 32.0 32.0 - 37.0 g/dL LAB HEMETOLOGY METHOD 11/24/2024 11:00 AM [facility] LAB RDW 13.1 11.0 - 15.0 % LAB HEMETOLOGY METHOD 11/24/2024 11:00 AM [facility] LAB Platelets 345 130 - 400 K/mcL LAB HEMETOLOGY METHOD 11/24/2024 11:00 AM [facility] LAB MPV 10.1 7.0 - 11.0 FL LAB HEMETOLOGY METHOD 11/24/2024 11:00 AM [facility] LAB NRBC 0.0 <1.0 % LAB HEMETOLOGY METHOD 11/24/2024 11:00 AM [facility] LAB NRBC Absolute 0.00 <0.10 K/mcL LAB HEMETOLOGY METHOD 11/24/2024 11:00 AM [facility] LAB Blood Venous blood specimen / Unknown Venipuncture / Unknown 11/24/2024 6:16 AM EDT 11/24/2024 10:24 AM EDT us Vero Mike MD LAB BLOOD ORDERABLES Final Resul t [facility] LAB [address] [place] [address], [place] [phone] * Thyroid stimulating hormone (11/24/2024 6:16 AM EDT) Pathologist [facility] TSH 1.63 0.40 - 4.00 mcIU/mL LAB CHEMISTRY METHOD 11/24/2024 1:30 PM EDT [facility] LAB Blood Venous blood specimen / Unknown Venipuncture / Unknown 11/24/2024 6:16 AM EDT 11/24/2024 10:32 AM EDT us Vero Mike MD LAB BLOOD ORDERABLES Final Resul t Performing Organization Address [facility]/ZIP Co de Phone Number [facility] LAB [address] [place] [address], [place] [phone] * (ABNORMAL) Hemoglobin A1c (11/24/2024 6:16 AM EDT) [facility] Hemoglobin A1C 8.9(H) <6.5 % LAB CHEMISTRY METHOD 11/24/2024 12:29 PM EDT [facility] LAB Mean Bld Glu Estim. 209 mg/dL LAB CHEMISTRY METHOD 11/24/2024 12:29 PM EDT [facility] LAB Blood Venous blood specimen / Unknown Venipuncture / Unknown 11/24/2024 6:16 AM EDT 11/24/2024 10:24 AM EDT us Vero Mike MD LAB BLOOD ORDERABLES Final Resul t Performing Organization Address City/[facility]/ZIP Co de Phone Number [facility] LAB [address] [place] [address], [place] [phone] * (ABNORMAL) Vitamin B12 (11/24/2024 6:16 AM EDT) [facility] Vitamin B-12 979(H) 250 - 900 pcg/mL LAB CHEMISTRY METHOD 11/24/2024 11:58 AM [facility] LAB Blood Venous blood specimen / Unknown Venipuncture / Unknown 11/24/2024 6:16 AM EDT 11/24/2024 10:32 AM EDT us Vero Mike MD LAB BLOOD ORDERABLES Final Resul t [facility] LAB [address] [place] [address], [place] [phone] * (ABNORMAL) Comprehensive metabolic panel (11/24/2024 6:16 AM EDT) Sodium 138 133 - 145 mmol/L LAB CHEMISTRY METHOD 11/24/2024 11:35 AM [facility] Potassium 4.5 3.5 - 5.5 mmol/L LAB CHEMISTRY METHOD 11/24/2024 11:35 AM [facility] Chloride 104 96 - 110 mmol/L LAB CHEMISTRY METHOD 11/24/2024 11:35 AM [facility] LAB CO2 28 21 - 32 mmol/L LAB CHEMISTRY METHOD 11/24/2024 11:35 AM [facility] LAB Anion Gap 6 3 - 11 LAB CHEMISTRY METHOD 11/24/2024 11:35 AM [facility] LAB Glucose 77 70 - 100 mg/dL LAB CHEMISTRY METHOD 11/24/2024 11:35 AM [facility] BUN 21 5 - 25 mg/dL LAB CHEMISTRY METHOD 11/24/2024 11:35 AM [facility] LAB Creatinine 0.96 0.50 - 1.10 mg/dL LAB CHEMISTRY METHOD 11/24/2024 11:35 AM [facility] LAB eGFR 62 >=60 mL/min/1. 73m2 LAB CHEMISTRY METHOD 11/24/2024 11:35 AM [facility] LAB Comment:Calculation based on the Chronic Kidney Disease Epidemiology Collaboration (CKD-EPI) equation refit without adjustment for race. BUN/Creatinine Ratio 21.9 LAB CHEMISTRY METHOD 11/24/2024 11:35 AM [facility] Calcium 9.2 8.5 - 10.5 mg/dL LAB CHEMISTRY METHOD 11/24/2024 11:35 AM [facility] LAB AST (SGOT) 18 10 - 42 unit/L LAB CHEMISTRY METHOD 11/24/2024 11:35 AM [facility] LAB ALT (SGPT) 26 10 - 60 unit/L LAB CHEMISTRY METHOD 11/24/2024 11:35 AM [facility] Alkaline Phosphatase 99 42 - 121 unit/L LAB CHEMISTRY METHOD 11/24/2024 11:35 AM [facility] Total Protein 5.6(L) 6.0 - 8.0 g/dL LAB CHEMISTRY METHOD 11/24/2024 11:35 AM [facility] LAB Albumin 3.3 3.2 - 5.0 g/dL LAB CHEMISTRY METHOD 11/24/2024 11:35 AM [facility] Total Bilirubin 0.3 0.0 - 1.4 mg/dL LAB CHEMISTRY METHOD 11/24/2024 11:35 AM [facility] LAB Blood Venous blood specimen / Unknown Venipuncture / Unknown 11/24/2024 6:16 AM EDT 11/24/2024 10:32 AM EDT us Vero Mike MD LAB BLOOD ORDERABLES Final Resul t [facility] LAB [address] [place] [address], * (ABNORMAL) Urinalysis with reflex microscopic (11/15/2024 12:20 PM EDT) Specific [place] Urine 1.012 1.003 - 1.030 LAB URINALYSIS - AUTOMATED METHOD 11/16/2024 9:53 AM [facility] pH, Urine 6.0 5.0 - 8.0 pH LAB URINALYSIS - AUTOMATED METHOD 11/16/2024 9:53 AM [facility] Leukocytes, Urine Small(A) Negative LAB URINALYSIS - AUTOMATED METHOD 11/16/2024 9:53 AM [facility] Nitrite, Urine Negative Negative LAB URINALYSIS - AUTOMATED METHOD 11/16/2024 9:53 AM [facility] Protein, Urine Negative <=Trace mg/dL LAB URINALYSIS - AUTOMATED METHOD 11/16/2024 9:53 AM [facility] Glucose, Urine 100(A) Negative mg/dL LAB URINALYSIS - AUTOMATED METHOD 11/16/2024 9:53 AM [facility] Ketones, Urine Negative Negative mg/dL LAB URINALYSIS - AUTOMATED METHOD 11/16/2024 9:53 AM [facility] Urobilinogen, Urine 0.2 0.2 - 1.0 mg/dL LAB URINALYSIS - AUTOMATED METHOD 11/16/2024 9:53 AM [facility] Bilirubin, Urine Negative Negative LAB URINALYSIS - AUTOMATED METHOD 11/16/2024 9:53 AM [facility] Blood, Urine Negative Negative LAB URINALYSIS - AUTOMATED METHOD 11/16/2024 9:53 AM [facility] RBC, Urine 1.7 0 - 4 /HPF LAB URINALYSIS - AUTOMATED METHOD 11/16/2024 9:53 AM [facility] LAB WBC, Urine 4.4(H) 0 - 4 /HPF LAB URINALYSIS - AUTOMATED METHOD 11/16/2024 9:53 AM [facility] Squamous Epithelial, Urine 42 0 - 60 /LPF LAB URINALYSIS - AUTOMATED METHOD 11/16/2024 9:53 AM [facility] Bacteria, Urine Many(A) Negative /HPF LAB URINALYSIS - AUTOMATED METHOD 11/16/2024 9:53 AM EDT [facility] Hyaline Casts, Urine 1.2 0 - 3 /LPF LAB URINALYSIS - AUTOMATED METHOD 11/16/2024 9:53 AM EDT [facility] Urine Urine specimen obtained by clean catch procedure / Unknown Non-blood Collection / Unknown 11/15/2024 12:20 PM EDT 11/16/2024 9:33 AM EDT us Vero Mike MD LAB URINE ORDERABLES Final Resul t [facility] LAB [address] [place] [address], [place] [phone] * (ABNORMAL) Culture urine (11/15/2024 12:20 PM EDT) Culture, Urine >=100,000 CFU/mL Klebsiella pneumoniae ssp pneumoniae(A) ANA 11/18/2024 10:57 AM EDT [facility] LAB Comment: This is an edited [...] ug/ml: Resistant Klebsiella pneumoniae ssp pneumoniae Piperacillin/Tazobactam ANA >=128 ug/ml: Resistant Klebsiella pneumoniae ssp pneumoniae Cefazolin (Urine) ANA >=32 ug/ml: Resistant Klebsiella pneumoniae ssp pneumoniae Cefoxitin ANA <=4 ug/ml: Susceptible Klebsiella pneumoniae ssp pneumoniae Ceftazidime ANA <=0.5 ug/ml: Susceptible Klebsiella pneumoniae ssp pneumoniae Ceftriaxone ANA <=0.25 ug/ml: Susceptible Klebsiella pneumoniae ssp pneumoniae Cefepime NAA <=0.12 ug/ml: Susceptible Klebsiella pneumoniae ssp pneumoniae [...] pneumoniae Trimethoprim/Sulfamethoxazo le ANA <=20 ug/ml: Susceptible us Vero Mike MD LAB MICROBIOLOGY - GENERAL ORDER ELIU Final Result [facility] [address] [place] [address], [place] [phone] from Last 3 Months Insurance [employer] MED[employer]ARE Member Subscriber Plan / Payer (Ef fective 2015-Present) Name:Brandie WILLIS Relation to Subscriber:Self Name:Brandie Santana Payer ID:[id number] Group ID:[id number] Type:Not on file Address: [place] [address] [address] [address] Care Teams Humidifier Operator Relationship Specialty Start Date End Date Pascual Darnell MD [address] [place] [address] PCP - General Internal Medicine 06/18/24
--- OUTSIDE RECORDS SUMMARY | 2025-01-04 11:36 | XMS_ITS | Encounter Summary ---
Author Organization [employer] Address 75 [facility] 7t [place] [address] Care Team Providers Care Leasing Sales Consultant Name Role Phone Pascual Daly MD Primary Care Provide r Fani Heck PharmD Unavailable +8 Dasia Waters PharmD Unavailable [phone] Reason for Visit * Reason Comments Med Refill Encounter Details Date Type Department Care Team ([facility] st Contact Info) Description 09/26/2023 Refill [facility] MEDICINE [address] [place] [address] Pascual Daly MD 230 [place] [address] Social History Tobacco Use Types Packs/Day Years [...] 10:30 AM EDT Medication Management [facility] MEDICINE [address] [place] [address] Dasia Waters, PharmD 230 [place] [address] 01/20/2025 10:30 AM EDT Clinical Support [facility] MED & PEDS [address] [place] [address] Amanda Fernández, RN 505 [place] [address] 01/26/2025 9:00 AM EDT Office Visit [facility] ADULT DENTAL [address] [place] [address] Christian Winchester DDS 230 [place] [address] 02/17/2025 10:15 AM EDT Office Visit [facility] ADULT DENTAL [address] [place] [address] Gabriela Gaitan 230 [place] [address] documented as of this encounter Goals Goal [...] documented as of this encounter Care Teams Leasing Sales Consultant Relationship Specialty Start Date End Date Pascual Daly MD 230 [place] [address] PCP - General Internal Medicine 02/22/14 Fani Heck, PharmD 230 [place] [address] Pharmacist Internal Medicine 12/16/22 08/15/24 Dasia Waters, KristiD 230 [place] [address] Pharmacist Internal Medicine 08/16/24 Iker MARCUSA 12/18/24 documented as of this encounter
--- OUTSIDE RECORDS SUMMARY | 2025-01-04 11:36 | XMS_ITS | Encounter Summary ---
Author Organization [employer] Address 75 [facility] 7t [place] [address] Care Team Providers Care Loading Rack Supervisor Name Role Phone Pascual Daly MD Primary Care Provide r Fani Heck PharmD Unavailable +0 Dasia Waters PharmD Unavailable [phone] Reason for Visit * Reason Comments Med Refill Encounter Details Date Type Department Care Team (Late st Contact Info) Description 08/26/2023 Refill [facility] [address] [place], [place] [phone] Momo Rizo MD 230 [place], [place] [phone] Benign hypertension Social History Tobacco Use Types [...] 10:30 AM EDT Medication Management [facility] MEDICINE [address] [place] [address] Dasia Waters, PharmD 230 [place] [address] 01/20/2025 10:30 AM EDT Clinical Support [facility]EDS 505 [place] [address] Amanda Fernández, RN 505 [place] [address] 01/26/2025 9:00 AM EDT Office Visit [facility] ADULT DENTAL [address] [place] [address] Christian Winchester DDS [address] [place] [address] 02/17/2025 10:15 AM EDT Office Visit [facility] ADULT DENTAL [address] [place] [address] Gabriela Gatian [address] [place] [address] documented as of this encounter Goals Goal [...] documented as of this encounter Care Teams Loading Rack Supervisor Relationship Specialty Start Date End Date Pascual Daly MD 230 [place] [address] PCP - General Internal Medicine 02/22/14 Fani Heck, PharmD [address] [place] [address] Pharmacist Internal Medicine 12/16/22 08/15/24 Dasia Waters PharmD [address] [place] [address] Pharmacist Internal Medicine 08/16/24 Iker MARCUSA 12/18/24 documented as of this encounter
--- OUTSIDE RECORDS SUMMARY | 2025-01-04 11:36 | XMS_ITS | Encounter Summary ---
Author Organization [email or web address] Address 75 [facility] 7t [place] [address] Care Team Providers Care Orchard Worker Name Role Phone Pascual Daly MD Primary Care Provide r Dasia Waters PharmD Unavailable [phone] Reason for Visit * Reason Onset Date Comments Med Refill 08/31/2024 Encounter Details Date Type Department Care Team ([facility] st Contact Info) Description 08/31/2024 Telephone [facility] MEDICINE [address] [place] [address] Pascual Daly MD [address] [place] [address] Med Refill Social History Tobacco Use Types [...] immediate release tablet To be sent to: [facility] documented in this encounter Plan of Treatment Upcoming Encounters Date Type Department Care Team (Late st Contact Info) Description 01/17/2025 10:30 AM EDT Medication Management [facility] MEDICINE [address] [place] [address] Dasia Waters, PharmD [address] [place] [address] 01/20/2025 10:30 AM EDT Clinical Support [facility] MED [facility] PEDS 505 [place] [address] Amanda Fernández, RN 505 [place] [address] 01/26/2025 9:00 AM EDT Office Visit [facility] ADULT DENTAL 230 [place], [place] [phone] Christian Winchester DDS [address] [place], [place] [phone] 02/17/2025 10:15 AM EDT Office Visit [facility] ADULT DENTAL [address] [place], [place] [phone] Gabriela Gaitan [address] [place], [place] [phone] documented as of this encounter Goals Goal [...] documented as of this encounter Care Teams Orchard Worker Relationship Specialty Start Date End Date Pascual Daly MD [address] [place], [place] [phone] PCP - General Internal Medicine 02/22/14 Dasia Waters PharmD [address] [place] [address] [phone] Pharmacist Internal Medicine 08/16/24 Iker MARCUSA 12/18/24 documented as of this encounter
--- OUTSIDE RECORDS SUMMARY | 2025-01-04 11:36 | XMS_ITS | Encounter Summary ---
Author Organization [employer] Address 75 [facility] 7t [place] [address] Care Team Providers Care Aircraft Instrument Engineer Name Role Phone Pascual Daly MD Primary Care Provide r Fani Heck PharmD Unavailable [phone] Dasia Waters PharmD Unavailable [phone] Encounter Details Date Type Department Care Team (Late st Contact Info) Description 09/25/2023 Telephone [facility] MEDICINE [address] [place] [address] Pascual Daly MD 230 [place] [address] Social History Tobacco Use Types Packs/Day Years [...] Description 01/17/2025 10:30 AM EDT Medication Management [facility] MEDICINE [address] [place] [address] Dasia Waters, PharmD 230 [place] [address] 01/20/2025 10:30 AM EDT Clinical Support [facility] MED & PEDS 505 [place] [address] Amanda Fernández, RN 505 [place] [address] 01/26/2025 9:00 AM EDT Office Visit [facility] ADULT DENTAL [address] [place] [address] Christian Winchester DDS [address] [place] [address] 02/17/2025 10:15 AM EDT Office Visit [facility] ADULT DENTAL [address] [place] [address] Gabriela Gaitan 230 [place] [address] documented as of this encounter Goals Goal Patient Goal Type Associated Problems Recent Progress Patient-Stated? Author Blood Pressure < 140/90 Blood Pressure 126/59( 025 9:28 AM EDT) No Fani Heck, Woody documented as of this encounter Visit Diagnoses Diagnosis Type 2 diabetes mellitus without complication, with long-term current use of insulin ([facility]) documented in this encounter Additional Health Concerns Assessment Noted Time PHQ-9 Depression Total Score: 11 024 10:24 AM EST documented as of this encounter Care Teams Aircraft Instrument Engineer Relationship Specialty Start Date End Date Pascual Daly MD [address] [place] [address] PCP - General Internal Medicine 02/22/14 Fani Heck, KristiD [address] [place] [address] Pharmacist Internal Medicine 12/16/22 08/15/24 Dasia Waters PharmD [address] [place] [address] Pharmacist Internal Medicine 08/16/24 Iker CORDERO 12/18/24 documented as of this encounter
--- OUTSIDE RECORDS SUMMARY | 2025-01-04 11:36 | XMS_ITS | Encounter Summary ---
Author Organization [employer] Address 75 [facility] 7t [place] [address] Care Team Providers Care Box Packer Name Role Phone Pascual Daly MD Primary Care Provide r Fani Heck PharmD Unavailable [phone] Dasia Waters PharmD Unavailable [phone] Encounter Details Date Type Department Care Team (Late Contact Info) Description 08/29/2022 Abstract [facility] MEDICINE 230 [place] [address] Pascual Daly MD 230 [place] [address] Social History Tobacco Use Types Packs/Day Years [...] 10:30 AM EDT Medication Management [facility] MEDICINE [address] [place] [address] Dasia Waters, KristiD 230 [place] [address] 01/20/2025 10:30 AM EDT Clinical Support [facility] MED [facility]EDS 505 [place] [address] Amanda Fernández, RN 505 [place] [address] 01/26/2025 9:00 AM EDT Office Visit [facility] ADULT DENTAL 230 [place] [address] Christian Winchester DDS [address] [place] [address] 02/17/2025 10:15 AM EDT Office Visit [facility] ADULT DENTAL 230 [place] [address] Kandy, Gabriela 230 [place] [address] documented as of this encounter Goals Goal [...] as of this encounter Care Teams Box Packer Relationship Specialty Start Date End Date Pascual Daly MD 230 [place] [address] PCP - General Internal Medicine 02/22/14 Fani Heck PharmD 230 [place] [address] Pharmacist Internal Medicine 12/16/22 08/15/24 Dasia Waters PharmD 230 [place] [address] Pharmacist Internal Medicine 08/16/24 [facility] documented as of this encounter
--- OUTSIDE RECORDS SUMMARY | 2025-01-04 11:37 | XMS_ITS | Encounter Summary ---
Author Organization [employer] Address 75 [facility] 7t [place] [address] Care Team Providers Care Paving Bed Maker Name Role Phone Pascual Dlay MD Primary Care Provide r Fani Heck PharmD Unavailable + Dasia Waters PharmD Unavailable [phone] Reason for Visit * Reason Onset Date Comments FYI 11/06/2023 Encounter Details Date Type Department Care Team ([facility] st Contact Info) Description 11/06/2023 Telephone [facility] MEDICINE 230 [place], [place] [phone] Pascual Daly MD 230 [place] [address] Social History Tobacco Use Types Packs/Day Years [...] - 11/06/2023 4:39 PM EDT Tc from [facility] Iker CORDERO PT informing pt has started services For PT 11/06/23 documented in this encounter Plan of Treatment Upcoming Encounters Date Type Department Care Team (Late st Contact Info) Description 01/17/2025 10:30 AM EDT Medication Management [facility] MEDICINE [address] [place] [address] Dsaia Waters, PharmD [address] [place] [address] 01/20/2025 10:30 AM EDT Clinical Support [facility] CHC MED & PEDS 505 [place] [address] Amanda Fernández, RN 505 [place] [address] 01/26/2025 9:00 AM EDT Office Visit [facility] ADULT DENTAL 230 [place] [address] Christian Winchester DDS 230 [place] [address] 02/17/2025 10:15 AM EDT Office Visit [facility] [place] [phone] Gabriela Gaitan 230 [place], [place] [phone] documented as of this encounter Goals Goal [...] documented as of this encounter Care Teams Paving Bed Maker Relationship Specialty Start Date End [place] [address] PCP - General Internal Medicine 02/22/14 Fani Heck, PharmD [place], [place] [phone] Pharmacist Internal Medicine 12/16/22 08/15/24 Dasia Waters, [place] [address] Pharmacist Internal Medicine 08/16/24 [facility] 12/18/24 documented as of this encounter
--- OUTSIDE RECORDS SUMMARY | 2025-01-04 11:37 | XMS_ITS | Encounter Summary ---
Author Organization [employer] Address 75 [facility] 7t [place] [address] Care Team Providers Care Label Stitcher Name Role Phone Pascual Daly MD Primary Care Provide r Dasia Waters PharmD Unavailable Reason for Visit * Reason Onset Date Comments chart prep 01/03/2025 Encounter Details Date Type Department Care Team ([facility] st Contact Info) Description 01/03/[address] [facility] MEDICINE 230 [place] [address] Pascual Daly MD 230 [place] [address] chart prep Social History Tobacco Use Types Packs/Day Years [...] encounter Miscellaneous Notes * Telephone Encounter - Ely Conley [place] - 01/03/2025 12:30 PM EDT Chart Prep Labs: done Images: done Screenings: Eye Exam and Foot Exam Vaccines due: Covid Due, Hep A Due, Hep B Due, and Flu Due Referrals: Completed Overdue care gaps: Glucose, PHQ9, and GAD7 documented in this encounter Plan of Treatment Upcoming Encounters Date Type Department Care Team (Late st Contact Info) Description 01/17/2025 10:30 AM EDT Medication Management [facility] MEDICINE 230 [place] [address] Dasia Waters, KristiD 230 [place] [address] 01/20/2025 10:30 AM EDT Clinical Support [facility] MED & PEDS 505 [place] [address] Amanda Fernández, RN 505 [place] [address] 01/26/2025 9:00 AM EDT Office Visit [facility] ADULT DENTAL 230 [place] [address] Christian Winchester DDS [address] [place] [address] 02/17/2025 10:15 AM EDT Office Visit [facility] ADULT DENTAL 230 [place] [address] Gabriela Gaitan [address] [place] [address] documented as of this encounter Goals Goal [...] documented as of this encounter Care Teams Label Stitcher Relationship Specialty Start Date End Date Pascual Daly MD [address] [place] [address] PCP - General Internal Medicine 02/22/14 Dasia Waters PharmD [address] [place] [address] Pharmacist Internal Medicine 08/16/24 Iker MARCUSA 12/18/24 documented as of this encounter
--- OUTSIDE RECORDS SUMMARY | 2025-01-04 11:37 | XMS_ITS | Encounter Summary ---
Author Organization [employer] Address 75 [facility] 7t [place] [address] Care Team Providers Care Refrigeration Houseman Name Role Phone Pascual Daly MD Primary Care Provide r Fani Heck PharmD Unavailable +6 Dasia Waters PharmD Unavailable [phone] Reason for Visit * Reason Onset Date Comments FYI 12/11/2023 Durable Medical Equipment 12/11/2023 Encounter Details Date Type Department Care Team (Late st Contact Info) Description 12/11/2023 Telephone [facility] MEDICINE 230 [place], [place] [phone] Pascual Daly MD [address] [place], [place] [phone] FYI ; Durable Medical Equipment Social History [...] EDT Tc from [facility] with Iker MARCUS informing that pt had 2 falls within the last 3 days and is requesting two DME scripts to be sent to [facility] which: [facility] bed Please fax over to [phone] documented in this encounter Plan of Treatment Upcoming Encounters Date Type Department Care Team ([facility] st Contact Info) Description 01/17/2025 10:30 AM EDT Medication Management [facility] MEDICINE [address] [place] [address] Dasia Waters, PharmD 230 [place] [address] 01/20/2025 10:30 AM EDT Clinical Support [facility] MED [facility] PEDS 505 [place] [address] Amanda Fernández, RN 505 [place] [address] 01/26/2025 9:00 AM EDT Office Visit [facility] ADULT DENTAL 230 [place] [address] Christian Winchester DDS [address] [place] [address] 02/17/2025 10:15 AM EDT Office Visit [facility] ADULT DENTAL [address] [place] [address] Gabriela Gaitan 230 [place] [address] documented as of this encounter Goals Goal [...] as of this encounter Care Teams Refrigeration Houseman Relationship Specialty Start Date End Date [place] [address] PCP - General Internal Medicine 02/22/14 Fani Heck, PharmD [facility] [place] [address] Pharmacist Internal Medicine 12/16/22 08/15/24 Dasia Waters, KristiD [facility] [address] Pharmacist Internal Medicine 08/16/24 Iker MARCUSA 12/18/24 documented as of this encounter
--- OUTSIDE RECORDS SUMMARY | 2025-01-04 11:37 | XMS_ITS | Encounter Summary ---
Author Organization [employer] Address 75 [facility] 7t [place] [address] Care Team Providers Care Baling Machine Tender Name Role Phone Pascual Daly MD Primary Care Provide r Fani Heck PharmD Unavailable [phone] Dasia Waters PharmD Unavailable [phone] Encounter Details Date Type Department Care Team (Late Contact Info) Description 05/29/2022 Abstract [facility] MEDICINE [address] [place] [address] Pascual Daly MD [address] [place] [address] Social History Tobacco Use Types Packs/Day Years [...] Description 01/17/2025 10:30 AM EDT Medication Management [facility] MEDICINE 230 [place] [address] Dasia Waters PharmD 230 [place] [address] 01/20/2025 10:30 AM EDT Clinical Support [facility] MED [facility] PEDS 505 [place] [address] Amanda Fernández, RN 505 [place] [address] 01/26/2025 9:00 AM EDT Office Visit [facility] ADULT DENTAL 230 [place] [address] Christian Winchester DDS 230 [place] [address] 02/17/2025 10:15 AM EDT Office Visit [facility] ADULT DENTAL 230 [place] [address] Kandy Gabriela 230 [place] [address] documented as of this encounter Goals Goal [...] documented as of this encounter Care Teams Baling Machine Tender Relationship Specialty Start Date End Date Pascual Daly MD 230 [place] [address] PCP - General Internal Medicine 02/22/14 Fani Heck, KrisitD [address] [place] [address] Pharmacist Internal Medicine 12/16/22 08/15/24 Dasia Waters, KristiD [address] [place] [address] Pharmacist Internal Medicine 08/16/24 Iker A 12/18/24 documented as of this encounter
--- OUTSIDE RECORDS SUMMARY | 2025-01-04 11:37 | XMS_ITS | Encounter Summary ---
Author Organization [employer] Address 75 [facility] 7t [place] [address] Care Team Providers Care Glue Mill Operator Name Role Phone Pascual Daly MD Primary Care Provide r Dasia Waters PharmD Unavailable [phone] Encounter Details Date Type Department Care Team (Latest Contact Info) Description 01/04/2025 Travel Social History Tobacco Use Types Packs/Day [...] AM EST documented as of this encounter Functional Status * Over the past 2 weeks, how often have you been bothered by any of the following problems? Question Answer Date of Assessment Author Patient Health Questionnaire -2 Score 2 01/04/2025 9:30 AM Samantha Pichardo MA * Little interest or pleasure [...] Author Nearly every day 01/04/2025 9:30 AM Samantha Pichardo MA * Moving or speaking so slowly that other people could have noticed? Or the opposite - being so fidgety or restless that you have been moving around a lot more than usual. Answer Date of Assessment Author Nearly every day 01/04/2025 9:30 AM Samantha Pichardo MA * Thoughts that you would [...] or on edge 2 01/04/2025 9:31 AM Samantha Pichardo MA Not being able to stop or co ntrol worrying 1 01/04/2025 9:31 AM Samantha Pichardo MA Worrying too much about diff erent things 3 01/04/2025 9:31 AM Samantha Pichardo MA Trouble relaxing 3 01/04/2025 9:31 AM Samantha Easton MA Being so restless that it is hard to sit still 3 01/04/2025 9:31 AM Samantha Pichardo MA Becoming easily annoyed or irritable 3 01/04/2025 9:31 AM Samantha Pichardo MA Feeling afraid as if somethi ng awful might happen 3 01/04/2025 9:31 AM Samantha Pichardo MA TRISTAN-7 Total Score 18 01/04/2025 9:31 AM Samantha Pichardo MA documented as of this encounter Plan of Treatment Upcoming Encounters Date Type Department Care Team (Late st Contact Info) Description 01/17/2025 10:30 AM EDT Medication Management [facility] MEDICINE [address] [place] [address] Dasia Waters, Woody 230 [place] [address] 01/20/2025 10:30 AM EDT Clinical Support [facility] MED [facility] PEDS 505 [place] [address] Amanda Fernández, RN 505 [place], [place] 01/26/2025 9:00 AM EDT Office Visit [facility] ADULT DENTAL [address] [place] [address] Christian Winchester DDS [address] [place] [address] 02/17/2025 10:15 AM EDT Office Visit [facility] ADULT DENTAL [address] [place] [address] Gabriela Gaitan [address] [place] [address] documented as of this encounter Goals Goal [...] documented as of this encounter Care Teams Glue Mill Operator Relationship Specialty Start Date End Date Pascual Daly MD [address] [place] [address] PCP - General Internal Medicine 02/22/14 Dasia Waters, KristiD [address] [place] [address] Pharmacist Internal Medicine 08/16/24 Iker MARCUSA 12/18/24 documented as of this encounter
--- OUTSIDE RECORDS SUMMARY | 2025-01-04 11:37 | XMS_ITS | Encounter Summary ---
Author Organization [employer] Address 75 [facility] 7t [place] [address] Care Team Providers Care Dental Assisting Instructor Name Role Phone Pascual Daly MD Primary Care Provide r Fani Heck PharmD Unavailable [phone] Dasia Waters PharmD Unavailable [phone] Reason for Visit * Reason Onset Date Comments Med Refill 01/13/2024 Encounter Details Date Type Department Care Team ([facility] st Contact Info) Description 01/13/2024 Telephone [facility] MEDICINE 230 [place], [place] [phone] Pascual Daly MD 230 [place] [address] Med Refill Social History Tobacco Use Types [...] sent to: [facility] - [place], [place] - [address] [place] [address] documented in this encounter Plan of Treatment Upcoming Encounters Date Type Department Care Team ([facility] st Contact Info) Description 01/17/2025 10:30 AM EDT Medication Management [facility] MEDICINE 230 [place] [address] Dasia Waters, PharmD 230 [place] [address] 01/20/2025 10:30 AM EDT Clinical Support [facility] MED [facility] PEDS 505 [place] [address] Amanda Fernández, RN 505 [place] [address] 01/26/2025 9:00 AM EDT Office Visit [facility] ADULT DENTAL 230 [place], [place] [phone] Christian Wincehster DDS 230 [place] [address] 02/17/2025 10:15 AM EDT Office Visit [facility] ADULT DENTAL 230 [place], [place] [phone] Gabriela Gaitan 230 [place] [address] documented as of this encounter Goals Goal [...] documented as of this encounter Care Teams Dental Assisting Instructor Relationship Specialty Start Date End Date [place] [address] PCP - General Internal Medicine 02/22/14 Fani Heck, PharmD [address] [place] [address] Pharmacist Internal Medicine 12/16/22 08/15/24 [place] [address] Pharmacist Internal Medicine 08/16/24 [facility] 12/18/24 documented as of this encounter
--- OUTSIDE RECORDS SUMMARY | 2025-01-04 11:37 | XMS_ITS | Encounter Summary ---
Author Organization [employer] Address [address] [facility] [address] [place] [address] Care Team Providers Care Secondary School Teacher Librarian Name Role Phone Pascual Daly MD Primary Care Provide r Fani Heck PharmD Unavailable [phone] Dasia Waters PharmD Unavailable [phone] Reason for Visit * Reason Comments Med Refill Encounter Details Date Type Department Care Team (Late Contact Info) Description 08/08/2022 Refill [facility] [address] [place] [phone] Momo Rizo MD [address] [place] [phone] Mild intermittent asthma without complication Social History [...] Upcoming Encounters Date Type Department Care Team ([facility] Contact Info) Description 01/17/2025 10:30 AM EDT Medication Management [facility] [address] [place] [address] Dasia Waters PharmD [address] [place] [address] 01/20/2025 10:30 AM EDT Clinical Support [facility] [address] [place] [address] Amanda Fernández, RN [address] [place] [address] 01/26/2025 9:00 AM EDT Office Visit [facility] [address] [place] [address] Christian Winchester DDS [address] [place] [address] 02/17/2025 10:15 AM EDT Office Visit [facility] [address] [place] [address] Gabriela Gaitan [address] [place] [address] documented as of this encounter Goals Goal Patient Goal Type Associated Problems Recent Progress Patient-Stated? Author Blood Pressure < 140/90 Blood Pressure 126/59( 025 9:28 AM EDT) No Fani Heck PharmD documented as of this encounter Visit Diagnoses Diagnosis Mild intermittent asthma without complication documented in this encounter Additional Health Concerns Assessment Noted Time PHQ-9 Depression Total Score: 8 07/05/19 23 9:26 AM EDT documented as of this encounter Care Teams [employer] Teacher Librarian Relationship Specialty Start Date End Date Pascual Daly MD [address] [place] [phone] PCP - General Internal Medicine 02/22/14 Fani Heck PharmD [address] [place] [phone] Pharmacist Internal Medicine 12/16/22 08/15/24 Dasia Waters PharmD [address] [place] [phone] Pharmacist Internal Medicine 08/16/24 Iker CORDERO 12/18/24 documented as of this encounter
--- OUTSIDE RECORDS SUMMARY | 2025-01-04 11:37 | XMS_ITS | Encounter Summary ---
Author Organization [employer] Address [address] [facility] [address] [place] [address] Care Team Providers Care Webfed Offset Press Operator Name Role Phone Pascual Daly MD Primary Care Provide r Fani Heck PharmD Unavailable [phone] Dasia Waters PharmD Unavailable [phone] Encounter Details Date Type Department Care Team (Latest Contact Info) Description 05/26/2019 Abstract [facility] CONVERSION[facility] Dental, Provider, DDS Social History [...] Description 01/17/2025 10:30 AM EDT Medication Management [facility] [address] [place] [address] Dasia Waters, PharmD [address] [place] [address] 01/20/2025 10:30 AM EDT Clinical Support [facility] [address] [place] [address] Amanda Fernández, RN [address] [place] [address] 01/26/2025 9:00 AM EDT Office Visit [facility] [address] [place] [address] Christian Winchester DDS [address] [place] [address] 02/17/2025 10:15 AM EDT Office Visit [facility] [address] [place] [address] Gabriela Gaitan [address] [place] [address] documented as of this encounter Visit Diagnoses Not on filedocumented in this encounter Care Teams Webfed Offset Press Operator Relationship Specialty Start Date End Date Pascual Daly MD [address] [place] [phone] PCP - General Internal Medicine 02/22/14 Fani Heck PharmD [address] [place] [phone] Pharmacist Internal Medicine 12/16/22 08/15/24 Dasia Waters PharmD [address] [place] [phone] Pharmacist Internal Medicine 08/16/24 [facility] 12/18/24 documented as of this encounter
--- OUTSIDE RECORDS SUMMARY | 2025-01-04 11:37 | XMS_ITS | Clinical Summary ---
Author Organization [employer] Address [address] [facility] [address] [place] [address] Care Team Providers Care Traffic Technician Name Role Phone Pascual Daly MD Primary Care Provide r Dasia Waters PharmD Unavailable [phone] Allergies Active Allergy Reactions Criticality Noted Date Comments Celecoxib Nausea Only,Unknown 05/25/2010 Lorazepam Unknown 02/12/2018 Naproxen Unknown 07/03/2022 Tramadol Hives,Unknown 11/02/2012 Zolpidem Anxiety,Unknown Low 01/26/2019 Medications acetaminophen (Tylenol) 500 MG tablet take 1 tablet (500MG) by oral route every 6 hours as needed 0 Active folic acid (Folvite) 1 MG tablet take 1 tablet by oral route every day Active glucose blood (FREESTYLE LITE) test strip USE 1 Each by DIRECTED route 4 times every day 6 Active insulin aspart, with niacinamide, (Fiasp FlexTouch) 100 UNIT/ML injectionIndicat ions:Type 1 Diabetes Mellitus Inject 4-14 units before meals 3 times a day. Active insulin degludec (Tresiba FlexTouch) 100 UNIT/ML injection Inject 18 Units under the skin in the morning. Active Bisacodyl EC 5 MG EC tablet Take 10 mg by mouth at bedtime. 2 Active calcium citrate (Calcitrate) 950 (200 Ca) MG tablet Take 2 tablets by mouth 2 times daily. 2 Active D3 Super Strength 50 MCG (2000 UT) capsule Take 50 mcg by mouth in the morning. 2 Active clopidogrel (Plavix) 75 MG tablet Take 75 mg by mouth in the morning. 2 Active esomeprazole (NexIUM) [address] capsule Take 40 mg by mouth Once daily. 2 Active UltiGuard SafePack Pen Needle 32G X 4 MM misc USE DIRECTED FIVE TIMES DAILY 2 Active fluticasone (Flonase Allergy Relief) 50 MCG/ACT nasal sprayIndications :Influenza-like symptoms Administer 1 spray into each nostril in the morning. Shake gently. Before first use, prime pump. After use, clean tip and replace cap. 16 g 12 3 Active carvedilol (Coreg) 6.25 MG tablet TAKE 1 TABLET BY MOUTH TWICE DAILY IN THE MORNING AND AT BEDTIME 3 Active Baqsimi Two Pack 3 MG/DOSE nasal powder USE 1 SPRAY (3MG) IN ONE NOSTRIL FOR A PATIENT WITH SEVERE HYPOGLYCEMIA WHO IS NOT RESPONSIVE AND UNABLE SELF-TREAT WITH GLUCOSE. AFTERWARDS TURN ON SIDE. MAY REPEAT IN 15MINUTES IF PATIENT DOES NOT RESPOND. 3 Active ARIPiprazole (Abilify) 20 MG tablet Take 1 tablet (20 mg) by mouth in the morning. 90 tablet 1 3 Active albuterol (2.5 MG/3ML) 0.083% nebulizer solution INHALE 1 AMPULE USING A NEBULIZER EVERY THREE HOURS NEEDED FOR SHORTNESS OF BREATH 3 Active hydrOXYzine HCl (Atarax) 10 MG tablet Take 1 tablet (10 mg) by mouth every 8 (eight) hours if needed for anxiety. 50 tablet 4 Active prazosin (Minipress) 2 MG capsuleIndicatio ns:Major depressive disorder with psychotic features (CMS/HCC) Take 3 capsules (6 mg) by mouth at bedtime. 270 capsule 1 4 Active melatonin 3 MG tablet Take 1 tablet (3 mg) by mouth if needed at bedtime for sleep. 30 tablet 2 4 Active clonazePAM (KlonoPIN) 0.5 MG tabletIndication s:Major depressive disorder with psychotic features (CMS/HCC) Take 1 tablet (0.5 mg) by mouth if needed in the morning, at noon, and at bedtime for anxiety. 90 tablet 4 Active Continuous Glucose Sensor (Dexcom G7 Sensor) misc DIRECTED 4 Active Actemra ACTPen 162 MG/0.9ML solution auto-injector Inject as directed (likely every other week; verify dose with patient or pharmacy) 4 Active albuterol (Ventolin HFA) 108 (90 Base) MCG/ACT inhalerIndicatio ns:Mild intermittent asthma without complication INHALE 2 PUFFS BY MOUTH EVERY 4 TO 6 HOURS NEEDED 18 g 1 5 Active gabapentin (Neurontin) 100 MG capsuleIndicatio ns:Pain TAKE 1 CAPSULE BY MOUTH TWICE DAILY IN THE MORNING AND AT BEDTIME 180 capsule 1 5 Active Alcohol Swabs (Alcohol Pads) 70 % padsIndications: Type 2 diabetes mellitus without complication, with long-term current use of insulin (CMS/HCC) Use up to 4 times a day for insulin injections 100 each 11 5 Active Blood Pressure Monitoring (Adult Blood Pressure Cuff Lg) kit Use daily to check blood pressure 1 kit 5 Active atorvastatin (Lipitor) 20 MG tabletIndication s:Type 2 diabetes mellitus without complication, with long-term current use of insulin (CMS/HCC) TAKE 1 TABLET BY MOUTH EVERY MORNING 90 tablet 1 5 Active amLODIPine (Norvasc) 10 MG tabletIndication s:Benign hypertension TAKE 1 TABLET BY MOUTH EVERY EVENING 90 tablet 1 5 Active levothyroxine (Synthroid, Levoxyl) 125 MCG tablet Take 1 tablet by mouth in the morning. 5 Active Linzess 145 MCG capsule Take 1 capsule by mouth before breakfast. 5 Active naloxone (Narcan) 4 mg/0.1 mL nasal spray 4 mg if needed for opioid reversal. 4 Active simethicone (Mylicon) 125 MG chewable tablet Chew 1 tablet. 2 to 4 times daily as needed for gas 5 Active venlafaxine XR (Effexor XR) 37.5 MG 24 hr capsule Take 1 capsule by mouth in the morning. 5 Active venlafaxine XR (Effexor XR) 75 MG 24 hr capsule Take 1 capsule by mouth in the morning. 5 Active chlorhexidine (Peridex) 0.12 % solution Swish 15 mL morning and night for 1 minute. Spit, do not swallow. Do not eat or drink for 30 minutes following use. 473 mL Active losartan (Cozaar) 100 MG tabletIndication s:Benign hypertension TAKE 1 TABLET BY MOUTH EVERY MORNING 90 tablet 1 Active Active Problems Problem Noted Date Diagnosed Date Urinary incontinence 01/04/2025 Assessment & Plan (01/04/2025 9:32 AM EDT): Pt with c/o this Plan: U/A Urology referral Aphthous ulcer 09/16/2024 Coronary artery disease invo lving [place] coronary artery of [place] heart without angina pectoris 08/12/2024 Assessment & [...] Long-term current use of opiate analgesic 2024 Sore throat 01/29/2024 Assessment & Plan (01/04/2025 10:01 AM EDT): Exam: normal Rapid strep, Flu and Covid: Negative Plan: supportive measures Hospital discharge follow-up 10/21/2023 Assessment & Plan (01/04/2025 9:38 AM EDT): Patient admitted to [facility] from (11/08/24 - 11/10/24) S/P fall and head injury at the visit with hematology. Eventually admitted for head injury and wrist injury. Patient's 4th finger was dislocated, lip, nose, and forehead were lacerated. Physical Therapy recommended rehabilitation. Eventually discharged to [facility] for not meeting medical necessity for hospitalization. Instructed to follow up with orthopedics team. She was at [facility] from 11/10/24 - 12/17/24 Discharged home with medications and group home services. Instructed to follow up with PCP with us in 7 to 10 days. Today she feels fine, no complaints, has a follow up with orthopedics tomorrow Assessment & Plan (10/21/2023 10:15 AM EDT): Patient admitted to [facility] 09/09/23 after she presented to [place] emergency room due to left-sided chest discomfort as per patient she was visiting family in [place], on August 26 she turned in high [...] (08/27/2022 10:19 AM EDT): followed by a bolt sawyer. 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 She says it falls out when she brushes her hair Pt evaluated by Dr Guevara Rheumatoid arthritis involvi ng multiple sites with positive rheumatoid factor 08/27/2022 Assessment & Plan (01/04/2025 9:23 AM EDT): Under the care of Rheumatology on [facility], last note 10/2023 Assessment & Plan (01/29/2024 11:21 AM EDT): Under the care of Rheumatology on [facility], last seen 10/2023 Assessment & Plan [...] psychotic feature s 03/26/2022 Assessment & Plan (01/04/2025 9:33 AM EDT): Titi Gray retired She has a new Psychiatrist and a psychotherapist in [place] She tells me she is taking Effexor, Klonopin and another one she cannot remember Assessment & Plan (07/24/2023 11:09 AM EDT): [...] Followed by endocrine for type I DM Current Therapy: - Amlodipine 10mg daily - [...] with cardiology in August. - Follow-up in [facility] in November. Repeat BMP and A1c prior [...] use of insulin 04/21/1959 Assessment & Plan (01/04/2025 10:01 AM EDT): Pt here for a f/u She is under the care of Endocrinology last seen 11/08/2024 She is on: Tresiba 18 units Fiasp 100-151 unit 151-200 4 units 201-250 5 units 250-300 6 year Over 300 70 units She has a VNA at home. Hgb A1c 11/24/2024: 8.9 from 7.8 Eye exam done on: 12/2023 [facility] Dx with new [...] on a daily basis. Assessment & Plan (08/12/2024 10:24 AM EDT): [...] from 8.9 Eye exam done on: 12/2023 [facility] Dx with new [...] f/u She is under the care of Classifying Machine Operator Dr Sprague, last seen 12/31/2023 [...] f/u She is under the care of Classifying Machine Operator Dr Sprague, last seen 10/16/2023 [...] f/u She is under the care of Classifying Machine Operator Dr Sprague, has a follow [...] f/u She is under the care of Classifying Machine Operator Dr Sprague, has a follow [...] was referred to Dr. Manjinder Gonsales at [facility] as her medical insurance recommended this referral. [...] LDL-C. Melquiades WALLACE et al. TEN. 2013;310(19): 5012-6811 (http://education.[employer].Med ePad/faq/PTD140) Chol/HDLC Ratio <5.0 (calc) 4.2 3.7 2.5 [...] Problem Noted Date Diagnosed Date Resolved Date Influenza 01/29/2024 05/04/2024 Assessment & Plan (01/29/2024 4:07 PM EDT): Patient with c/o mild sore throat Rapid Flu test positive Influenza A Plan: Tamiflu 30 mg BID x 5 days given her Cr clearance Concussion with no loss of consciousness 02/13/2018 08/27/2022 Anxiety state 09/24/2011 04/25/2022 Depressive disorder 04/21/1959 04/25/19 23 Encounters Date Type Department Care Team Description 01/04/2025 9:30 AM EDT Office Visit [facility] [place] [facility] [address] [place] [address] Pascual Daly MD Hospital discharge follow-up (Primary Dx); Type 2 diabetes mellitus with right eye affected by mild nonproliferative retinopathy without macular edema, with long-term current use of insulin ([facility]); Rheumatoid arthritis involving multiple sites with positive rheumatoid factor ([facility]); Major depressive disorder with psychotic features ([facility]); Mixed stress and urge urinary incontinence; Sore throat 01/04/2025 Travel 01/03/2025 Telephone [facility] [place] [facility] [address] [place] [address] Pascual Daly MD chart prep 12/31/2024 Telephone [facility] [place] [facility] [address] [place] [address] Katie Harper, PharmD 12/22/2024 Telephone [facility] [place] [facility] [address] [place] [address] Pascual Daly MD Durable Medical Equipment 12/15/2024 Patient Outreach [facility] [address] [place] [address] Pascual Daly MD Transition Of Care (Tcm) (HDF scheduled. ) 11/21/2024 Refill [facility] [place] [facility] [address] [place] [address] Pascual Daly MD Pain; Benign hypertension 11/16/2024 Telephone [facility] [place] [facility] [address] [place] [address] Pascual Daly MD 11/15/2024 Telephone [facility] [place] [facility] [address] [place] [address] Pascual Daly MD Chart Prep 11/08/2024 Orders Only GENERIC EXTERNAL DATA DEPARTMENT Provider, Generic External Data 10/28/2024 10:30 AM EDT Clinical Support [facility] [address] [place] [address] Amanda Fernández RN Fibromyalgia 10/28/2024 Orders Only GENERIC EXTERNAL DATA DEPARTMENT Provider, Generic External Data 10/28/2024 Refill [facility] [address] [place] [address] Amanda Fernández RN Fibromyalgia 10/28/2024 Travel 10/27/[address] [address] Pascual Daly MD Fibromyalgia 10/14/2024 Travel from Last 3 Months Immunizations Immunization Administration [...] tox oid, preservative free, adsorbed 02/22/2003,08/21/1992 Tdap 10/14/2024,09/24/2013 Zoster, Recombinant 03/17/2019,01/13/2019 Zoster, live 09/08/2014 Social [...] Mass Index 31.48 01/04/2025 9:28 AM EDT Plan of Treatment Upcoming Encounters Date Type Department Care Team (Late st Contact Info) Description 01/17/2025 10:30 AM EDT Medication Management [facility] [place] [facility] [address] [place] [address] Dasia Waters, PharmD [address] [place] [address] 01/20/2025 10:30 AM EDT Clinical Support [facility] [place] [facility] [address] [place] [address] Amanda Fernández, RN [address] [place] [address] 01/26/2025 9:00 AM EDT Office Visit [facility] [place] [facility] [address] [place] [address] Christian Winchester DDS [address] [place] [address] 02/17/2025 10:15 AM EDT Office Visit [facility] [place] [facility] [address] [place] [address] Kandy Gabriela [address] [place] [address] Health Maintenance Due Date Last Done Comments CT Colonography 1950 Dental X-Ray: Bitewings 1950 FIT DNA/Cologuard 1950 FIT 1950 FOBT 1950 Sigmoidoscopy 1950 Diabetes: Foot Exam 02/08/1960 Eye Exam 02/08/1960 Hepatitis A Vaccines (1 of 2 - Risk 2-dose series) 1969 Hepatitis B Vaccines (1 of 3 - Risk 3-dose series) 2010 Diabetes: Urine Protein Screening 07/01/2024 07/02/2023, 01/10/2023, 07/17/2021, Additional history exists COVID-19 Vaccine ( season) 2024 04/18/2022, 09/04/2021, 03/05/2021, Additional history exists Influenza Vaccine (#1) 2024 , 03/11/2023, 01/15/2023, Additional history exists Dental Oral Exam 02/05/2025 08/05/2024 Dental Prophylaxis 02/05/2025 08/05/2024 Diabetes: Hemoglobin A1C 02/24/2025 025, 08/12/2024, 05/04/2024, Additional history exists Alcohol/Substance Use Screening 05/04/2025 05/04/2024 Depression Monitoring 07/04/2025 01/04/2025, 025 Mammogram 08/02/2025 08/02/2024, 05/22, 05/23/2022, Additional history exists SDOH Screening 08/12/2025 08/12/2024 Lipid Panel 08/16/2025 08/16/2024, 10/19, 07/02/2023, Additional history exists Tobacco Screening 01/04/2026 01/04/2025 Dental X-Ray: Full Mouth 08/07/2027 08/05/2024 Colonoscopy 03/20/2028 03/20/2018 Colorectal Cancer Screening 03/20/2028 DTaP/Tdap/Td Vaccines (3 - Td or Tdap) 10/14/2034 10/14/2024, 09/24/2013, 02/22/2003, Additional history exists Zoster Vaccines Completed 03/17/2019, 12/21, 09/08/2014 Pneumococcal Vaccine: 50+ Years Completed 06/12/2023, 04/25/2015, 04/25/2015, Additional history exists RSV Patients and Patients Aged 60 years or older Completed 06/12/2023 HIB Vaccines Aged Out No [...] 9:28 AM EDT) No Fani Heck, Woody Procedures Procedure Name Priority Date/Time Associated Diagnosis Comments POCT INFLUENZA A Routine 01/04/2025 10:0 8 AM EDT Sore throat POCT COVID-19 AG BALL ID NOW Routine 01/04/2025 9:54 AM EDT Sore throat POCT INFLUENZA B [...] edema, with long-term current use of insulin ([facility]) GLUCOSE, WHOLE BLOOD Routine 11/08/2024 8:15 AM EDT POCT HEATHER-14 URINE DRUG SCREEN Routine 10/28/2024 10:05 AM EDT Fibromyalgia T-SPOT(R).TB Routine 10/28/2024 10:04 AM EDT HEPATITIS C VIRAL RNA, QUANTITATIVE, REAL-TIME PCR Routine 10/28/2024 10:04 AM EDT HEPATITIS PANEL, GENERAL Routine 10/28/2024 10:04 AM EDT SED RATE BY MODIFIED WESTERGREN Routine 10/28/2024 10:04 AM EDT VITAMIN D,25-OH,TOTAL,IA Routine 10/28/2024 10:04 AM EDT CBC WITH AUTO DIFFERENTIAL Routine 10/28/2024 10:04 AM EDT LIPID PANEL, STANDARD Routine 08/16/2024 9:24 AM EDT Mixed hyperlipidemia POCT GLYCATED HEMOGLOBIN, TOTAL Routine 08/12/2024 10:16 AM EDT Type 2 diabetes mellitus without complication, with long-term current use of insulin ([facility]) Full PROPHYLAXIS - ADULT Routine 08/05/2024 10:00 AM EDT PANORAMIC RADIOGRAPHIC IMAGE Routine 08/05/2024 10:00 AM EDT PERIODIC ORAL EVALUATION - ESTABLISHED PATIENT Routine 08/05/2024 10:00 AM EDT BI MAMMOGRAM SCREENING TOMOSYNTHESIS BILATERAL Routine 08/02/2024 11:03 AM EDT ALBUMIN, RANDOM URINE W/CREATININE Routine 07/02/2023 10:06 AM EDT HM COLONOSCOPY Routine 03/20/2018 from Last 3 Months or Most Recently Relevant to Health Maintenance Results * POCT Rapid Influenza A OSOM (01/04/2025 10:08 AM EDT) Pathologist [facility] Rapid Influenza A Ag Negative Negative, Indeterminate QC Media Lot # [id number] Lot# Expiration Date Swab Nasopharyngeal structure / Unknown 01/04/2025 10:08 AM EDT us Pascual Terry MD POINT OF CARE TEST EN TER/EDIT ORDERABLES Final Result * POCT Rapid Influenza B BALL ID NOW (01/04/2025 9:54 AM EDT) Pathologist [facility] Influenza B Negative Negative, Indeterminate [facility] QC Media Lot # [id number] [facility] Lot# Expiration Date [facility] Swab 01/04/2025 9:54 AM EDT us Pascual Terry MD POINT OF CARE TEST EN TER/EDIT ORDERABLES Final Result [facility] [address] [place] [phone] [phone] * POCT Rapid Covid-19 BALL ID NOW (01/04/2025 9:54 AM EDT) Pathologist [facility] Coronavirus Antigen PCR Negative Negative, Indeterminate, None Detected, Invalid, Specimen unsatisfactory for evaluation, Weakly Positive, 2+ QC Media Lot # [id number] Lot# Expiration Date Swab 01/04/2025 9:54 AM EDT us Pascual Terry MD POINT OF CARE TEST EN TER/EDIT ORDERABLES Final Result * POCT Rapid Strep A BALL ID NOW (01/04/2025 9:51 AM EDT) [facility] Rapid Strep A Screen Negative Negative, None Detected QC Media Lot # [id number] Lot# Expiration Date Swab 01/04/2025 9:51 AM EDT us Pascual Terry MD POINT OF CARE TEST EN TER/EDIT ORDERABLES Final Result * POCT Rapid Covid-19 BinaxNOW (01/04/2025 9:51 AM EDT) [facility] Rapid COVID Ag Negative QC Media Lot # [id number] Lot# Expiration Date Swab 01/04/2025 9:51 AM EDT us Pascual Terry MD POINT OF CARE TEST EN TER/EDIT ORDERABLES Final Result * POCT Glucose (01/04/2025 9:29 AM EDT) Glucose Blood, POC 182 60 - 200 mg/dL QC Media Lot # [id number] Lot# Expiration Date [id number] Blood Capillary blood specimen / Unknown 01/04/2025 9:29 AM EDT us Pascual Terry MD POINT OF CARE TEST EN TER/EDIT ORDERABLES Final Result * (ABNORMAL) Glucose, Whole Blood (11/08/2024 8:15 AM EDT) Pathologist [facility] Glucose, Whole Blood 285(H) 60 - 115 mg/dL [facility] Comment:METER #: [id number] Testing performed in the Endocrinology Department [address] , [address], [facility]. 11/08/2024 8:15 AM EDT 11/08/2024 8:19 AM EDT us Generic External Data Provider LAB BLOOD ORDERAB LES Final Result [facility] [address] [place] [phone] * (ABNORMAL) POCT HEATHER-14 Urine Drug Screen (10/28/2024 10:05 AM EDT) Pathologist [facility] THC Negative Negative Cocaine Screen, Urine Negative [...] Unknown 10/28/2024 10:05 AM EDT Narrative Amanda Fernández RN - 10/28/2024 10:05 AM EDT Internal Pass Control Lot# [id number] Exp: 02-18-26 us Pascual Terry MD POINT OF CARE TEST EN TER/EDIT ORDERABLES Final Result * Vitamin D, 25-Hydroxy, Total, Immunoassay (10/28/2024 10:04 AM EDT) Vitamin D 25-OH Total 78.0 >30 ng/mL [facility] Comment: Health Based Reference Values*< 20 ng/mL Lpaguuokx65-45 ng/mL Insufficient> 30 ng/mL Sufficient*Dione TUCKER. N Engl J Med. 2007;357:266-280There is no well-established upper level of normal vitamin Dlevels. Some laboratories use 50 ng/mL as an upper limit ofnormal. However, toxicity is patient-dependent and may occurat any level. Careful correlation with the patient'spresentation is necessary and, if there is concern forvitamin D toxicity, treatment should be consideredirrespective of the serum level.Care must be taken in interpreting Vitamin D [...] confirmed with another method such as LC-MS/MS. 10/28/2024 10:0 4 AM EDT 10/28/2024 3:46 PM EDT us Generic External Data Provider LAB BLOOD ORDERAB LES Final Result [facility] [address] [place] [phone] * T-SPOT??.TB (10/28/2024 10:04 AM EDT) T Spot TB Negative Negative [facility] Comment:A negative test resu lt does not exclude the possibilityof exposure to or infection with Mycobacteriumtuberculosis (M. tuberculosis). Patients with recentexposure to TB infected individuals exhibiting anegative T-SPOT.TB result should be considered forretesting within 6 weeks or if other relevant clinicalsymptoms indicate. Results from T-SPOT.TB testing mustbe used in conjunction with each individual'sepidemiological history, current medical status,and results of other diagnostic evaluations.The T-SPOT.TB test is qualitative and results arereported as positive, borderline, or negative, giventhat the test controls perform as expected. In linewith the Centers for Disease Control and Prevention's2010 recommendation to report quantitative measurementsalongside the qualitative result, the laboratoryprovides spot counts for informational purposes only.The T-SPOT.TB test should not be interpreted as aquantitative test. TS PANEL A 1 [facility] TS PANEL B 0 [facility] Negative Control Passed [facility] Positive Control Passed [facility] Comment:For additional infor pat, please refer tohttp://education.REH/faq/LVJ224(This link is being provided for informational/educational purposes only.)REPORT COMMENT:REC'D AT [facility] TEST WAS PERFORMED AT:[employer] [id number] [place] [address]IAPLKVHJOHN CORDON MD,PHD 10/28/2024 10:0 4 AM EDT 10/28/2024 3:44 PM EDT us Generic External Data Provider LAB BLOOD ORDERAB LES Final Result [facility] [address] [place] [phone] * Hepatitis Panel, General (10/28/2024 10:04 AM EDT) Hepatitis A IgM Nonreactive Nonreactive [facility] Comment:IgM antibodies to GARCIA V not detected; does not exclude earlyacute or recovered HAV infection. ~Hepatitis B Surface Antibody NONREACTIVE Nonreactive [facility] Comment:Nonreactive: < 8.00 mIU/mL Hepatitis B Core Antibody Nonreactive Nonreactive [facility] Hepatitis C Antibody Nonreactive Nonreactive [facility] Comment:Antibodies to HCV no t detected; does not exclude early acuteHCV infection. Hepatitis B Surface Ag Negative Negative [facility] 10/28/2024 10:0 4 AM EDT 10/28/2024 3:46 PM EDT Generic External Data Provider LAB BLOOD ORDERAB LES Final Result Performing Organization Address [facility] de Phone Number [facility] [address] [place] [phone] * Hepatitis C Viral RNA, Quantitative, Real-Time PCR (10/28/2024 10:04 AM EDT) [facility] Hepatitis C Viral Load <15 NOT DETECTED NOT DETECTED IU/mL [facility] HCV Log PCR <1.18 NOT DETECTED NOT DETECTED Log IU/mL [facility] Comment:For additional infor pat, please refer tohttp://education.REH/faq/QWI72e8(This link is being provided for informational/educational purposes only.)THIS TEST WAS PERFORMED AT:[employer] [place] [phone] HURLEY MD 10/28/2024 10:0 4 AM EDT 10/28/2024 3:46 PM EDT Generic External Data Provider LAB BLOOD ORDERAB LES Final Result Performing Organization Address [facility] de Phone Number [facility] [address] [place] [phone] * (ABNORMAL) CBC auto differential (10/28/2024 10:04 AM EDT) [facility] White Blood Count 9.5 4.8 - 10.8 X10*3/uL [facility] Red Blood Count 4.17(L) 4.20 - 5.50 X10*6/uL [facility] Hemoglobin 11.7(L) 12.0 - 16.0 g/dl [facility] Hematocrit 36.6(L) 37.0 - 47.0 % [facility] Mean Corpuscular Volume 87.8 80.0 - 98.0 fL [facility] Mean Corpuscular Hemoglobin 28.1 27.0 - 33.0 pg [facility] Mean Corpuscular HGB Conc 32.0 31.0 - 35.0 g/dl [facility] Red Cell Distribution Width 13.9 11.0 - 16.0 % [facility] Platelet Count 199 160 - 400 X10*3/uL [facility] Mean Platelet Volume 11.4 9.4 - 12.3 fL [facility] Neutrophils Percent Auto 49.1 45 - 73 % [facility] Imm Gran Pct Auto 0.2 0.0 - 0.4 % [facility] Lymphocytes Percent Auto 31.2 20 - 40 % [facility] Monocytes Percent Auto 6.2 2 - 11 % [facility] Eosinophils Percent Auto 12.1(H) 0 - 4 % [facility] Basophils Percent Auto 1.2 0 - 2 % [facility] NRBC Pct Auto 0.0 0.0 - 0.2 /100WBC [facility] Neutrophils Absolute Auto 4.7 2.0 - 8.3 x10*3/uL [facility] Imm Gran Abs Auto 0.02 0.00 - 0.03 X10*3/uL [facility] Lymphocytes Absolute Auto 3.0 1.2 - 4.9 X10*3/uL [facility] Monocytes Absolute Auto 0.6 0.1 - 1.2 X10*3/uL [facility] Eosinophils Absolute Auto 1.1(H) 0.0 - 0.4 X10*3/uL [facility] Basophils Absolute Auto 0.1 0.0 - 0.2 X10*3/uL [facility] NRBC Abs Auto 0.000 0.0 - 0.012 X10*3/uL [facility] 10/28/2024 10:0 4 AM EDT 10/28/2024 3:46 PM EDT us Generic External Data Provider LAB BLOOD ORDERAB LES Final Result Performing Organization Address [facility]/ZIP Co de Phone Number [facility] [address] [place] [phone] * Sed Rate by Modified Leightonergren (10/28/2024 10:04 AM EDT) Erythrocyte Sedimentation Rate 2 0 - 20 MM/HR [facility] Comment:Patients with polycy themia and many hemoglobin abnormalitiesmay have depressed sed rates whereas patients with anemiamay have elevated sed rates. 10/28/2024 10:0 4 AM EDT 10/28/2024 3:46 PM EDT Generic External Data Provider LAB BLOOD ORDERAB LES Final Result Performing Organization Address [facility] Co de Phone Number [facility] [address] [place] [phone] * Lipid Panel, Standard (08/16/2024 9:24 AM EDT) Triglycerides 100 <150 mg/dL [facility] Comment:Desirable Triglyceri de: less than 150 mg/dLBorderline High Triglyceride 150-199 mg/dLHigh Triglyceride: 200-499 mg/dLVery High Triglyceride: greater than or equal to 5OO mg/dL Cholesterol 145 <200 mg/dL [facility] Comment:Desirable Cholestero l: less than 200 mg/dLBorderline High Cholesterol: 200-239 mg/dLHigh Cholesterol: greater than 239 mg/dL LDL Cholesterol Calculated 60 <100 mg/dL [facility] Comment:Desirable LDL: less than 100 mg/dLNear Optimal/Above Optimal LDL: 110- 129 mg/dLBorderline High LDL: 130-159 mg/dLHigh LDL: 160-189 mg/dLVery High LDL: greater than or equal to 190 mg/dL HDL Cholesterol 65 >40 mg/dL [facility] Comment:Desirable HDL: great er than 40 mg/dL Note: This HDL assay may give artificially low results in patients with liver disease. Blood Venous blood specimen / Unknown 08/16/2024 9:24 AM EDT 08/16/2024 10:57 AM EDT Pascual Terry MD LAB BLOOD ORDERABLES Final Result [facility] [address] [place] [phone] [phone] * (ABNORMAL) POCT HGB A1C (08/12/2024 10:16 AM EDT) Hemoglobin A1C 7.8(A) 4.0 - 6.0 % QC Media Lot # [id number] Lot# Expiration Date Blood 08/12/2024 10:1 6 AM EDT Pascual Terry MD POINT OF CARE TEST EN TER/EDIT ORDERABLES Final Result * BI Mammogram Screening Tomosynthesis Bilateral (08/02/2024 11:03 AM EDT) Anatomical Region Laterality Modality Breast Bilateral Mammography 08/02/2024 11:0 3 AM EDT Narrative 08/10/2024 3:27 PM EDT [address] [place] [address] Mammography Report Signed Patient: Brandie Santana MR#: [id number] : 1950 Acct:[id number] Age/Sex: 74 / F ADM Date: 08/02/24 Loc: HO.MAMMO Attending Dr: Pascual Darnell MD Ordering Physician: Pascual Darnell MD Resu lts: 2Benign Findings Date of Service: 08/02/24 Follow Up: 1 Year From Orig inal Mammogram Procedure(s): MM tomosynthesis screening BI Accession Number(s): [id number] cc: Pascual Darnell MD EXAMINATION: MM SCREENING [...] 08/10/24 1523 DD/ 1103 TD/TT: 08/02/24 1116 Drainlayer: Procedure Note Donotuseinterpreter, Image - 08/10/2024 [facility] [address] [place] [address] Mammography Report Signed Patient: Dino Santana#: [id number] : 1950Acct:[id number] Age/Sex: 74 / FADM Date: 08/02/24 Loc: CYNTHIAO Attending Dr: Pascual Darnell MD Ordering Physician: Pascual Darnell MDResu lts: 2Benign Findings Date of Service: 08/02/24Follow Up: 1 Year From Orig inal Mammogram Procedure(s): MM tomosynthesis screening BI Accession Number(s): [id number] cc: Pascual Darnell MD EXAMINATION: MM SCREENING [...] 08/10/24 1523 DD/ 1103 TD/TT: 08/02/24 1116 Drainlayer: us Pascual Terry MD IMG BI PROCEDURES Fin al Result * (ABNORMAL) Albumin, Random Urine W/Creatinine (07/02/2023 10:06 AM EDT) Creatinine, Urine 163.81 mg/dL [facility] Microalbumin Urine 59.0 mg/L [facility] Microalbum Creatinine Ratio Ur 36.0(H) <30 ug/mg cr [facility] Comment:Albumin/Creatinine R atio Reference Ranges: Normal: < 30 ug/mg creatinine Microalbuminuria: 30 - 300 ug/mg creatinineClinical Albuminuria: > 300 ug/mg creatinine 07/02/2023 10:0 6 AM EDT 07/02/2023 11:41 AM EDT us Generic External Data Provider LAB URINE ORDERAB LES Final Result [facility] [address] [place] [phone] [phone] * Colonoscopy (03/20/2018) Colonoscopy Normal Normal 03/20/2018 Narrative Sondra Rowe - 03/20/2018 9:09 AM EST Recommended 10 year follow up us Historical Provider HEALTH MAINTENANCE Edited Result - Final from Last 3 Months or Most Recently Relevant to Health Maintenance Insurance [facility] [employer] OPTIONS (HMO D-SNP) [facility] Care Teams Traffic Technician Relationship Specialty Start Date End Date Pascual Daly MD [address] [place] [address] PCP - General Internal Medicine 02/22/14 Dasia Waters PharmD [address] [place] [address] Pharmacist Internal Medicine 08/16/24 [facility]
--- OUTSIDE RECORDS SUMMARY | 2025-01-04 11:37 | XMS_ITS | Encounter Summary ---
Author Organization [employer] Address [address] [facility] 7t [place] [address] Care Team Providers Care Rat Culturist Name Role Phone Pascual Daly MD Primary Care Provide r Dasia Waters PharmD Unavailable [phone] Encounter Details Date Type Department Care Team ([facility] st Contact Info) Description 12/31/2024 Telephone [facility] [address] [place] [address] Katie Harper PharmD [address] [place], [place] [phone] Social History Tobacco Use Types Packs/Day Years [...] encounter Miscellaneous Notes * Telephone Encounter - Linda Schmidt - 01/03/2025 9:50 AM EDT Please see request for DME pull ups, below. Pt has not been seen within the past year for dx of incontinence. Pt is scheduled with pcp tomorrow. Can pt be evaluated during this visit for supporting documentation of pull ups? Thank you * Telephone Encounter - Katie Harper PharmD - 12/31/2024 10:42 AM EDT Patient is requesting assistance with getting a prescription for pull ups; she reports previously receiving/coverage from [facility]. Thank you! documented in this encounter Plan of Treatment Upcoming Encounters Date Type Department Care Team (Late st Contact Info) Description 01/17/2025 10:30 AM EDT Medication Management [facility] [address] [place] [address] Dasia Waters, Woody [address] [place] [address] 01/20/2025 10:30 AM EDT Clinical Support [facility] [address] [place] [address] Amanda Fernández, RN [address] [place], [place] 01/26/2025 9:00 AM EDT Office Visit [facility] [address] [place] [address] Christian Winchester DDS [address] [place] [address] 02/17/2025 10:15 AM EDT Office Visit [facility] [address] [place] [address] Gabriela Gaitan [address] [place] [address] documented as of this encounter Goals Goal [...] documented as of this encounter Care Teams Rat Culturist Relationship Specialty Start Date End Date Pascual Daly MD [address] [place] [address] PCP - General Internal Medicine 02/22/14 Dasia Waters PharmD [address] [place] [phone] Pharmacist Internal Medicine 08/16/24 Iker MARCUSA 12/18/24 documented as of this encounter
--- OUTSIDE RECORDS SUMMARY | 2025-01-04 11:37 | XMS_ITS | Encounter Summary ---
Author Organization [employer] Address 75 [facility] 7t [place] [address] Care Team Providers Care Trauma Coordinator Name Role Phone Pascual Daly MD Primary Care Provide r Fani Heck PharmD Unavailable [phone] Dasia Waters PharmD Unavailable [phone] Reason for Visit * Reason Onset Date Comments Med Refill 12/15/2023 Encounter Details Date Type Department Care Team ([facility] st Contact Info) Description 12/15/2023 Telephone [facility] [address] [place], [place] [phone] Pascual Daly MD [address] [place], [place] [phone] Med Refill Social History Tobacco Use Types [...] immediate release tablet To be sent to: [facility] [place], [place] - [address] [place] [address] documented in this encounter Plan of Treatment Upcoming Encounters Date Type Department Care Team ([facility] st Contact Info) Description 01/17/2025 10:30 AM EDT Medication Management [facility] [address] [place] [address] Dasia Waters, PharmD [address] [place] [address] 01/20/2025 10:30 AM EDT Clinical Support [facility] [address] [place] [address] Amanda Fernández, RN [address] [place] [address] 01/26/2025 9:00 AM EDT Office Visit [facility] [address] [place], [place] [phone] Christian Winchester DDS [address] [place] [address] 02/17/2025 10:15 AM EDT Office Visit [facility] [address] [place] [address] Gabriela Gaitan [address] [place] [address] documented as of this encounter Goals Goal [...] documented as of this encounter Care Teams Trauma Coordinator Relationship Specialty Start Date End Date Pascual Daly MD [address] [place] [address] PCP - General Internal Medicine 02/22/14 Fani Heck, [place] [address] Pharmacist Internal Medicine 12/16/22 08/15/24 Dasia [place] [address] Pharmacist Internal Medicine 08/16/24 [facility] 12/18/24 documented as of this encounter
--- OUTSIDE RECORDS SUMMARY | 2025-01-04 11:37 | XMS_ITS | Encounter Summary ---
Author Organization [employer] Address [address] [facility] 7t [place] [address] Care Team Providers Care Manufacturing Assembler Name Role Phone Pascual Daly MD Primary Care Provide r Dasia Waters PharmD Unavailable [phone] Reason for Visit * Reason Onset Date Comments Durable Medical Equipment 12/22/2024 Encounter Details Date Type Department Care Team ([facility] st Contact Info) Description 12/22/2024 Telephone [facility] [address] [place] [address] Pascual Daly MD [address] [place] [address] Durable Medical Equipment Social History Tobacco Use [...] * Telephone Encounter - Linda Schmidt - 12/22/2024 4:09 PM EDT Please see message below and advise if agree. Thank you * Telephone Encounter - Sylvia England - 12/22/2024 1:42 PM EDT [facility] requesting a new scrip for DME - half bed rail To be fax to [facility] stated pt has full bed rails and is impossible for pt to get out of bed. documented in this encounter Plan of Treatment Upcoming Encounters Date Type Department Care Team (Late st Contact Info) Description 01/17/2025 10:30 AM EDT Medication Management [facility] [address] [place] [address] Dasia Waters, PharmD [address] [place] [address] 01/20/2025 10:30 AM EDT Clinical Support [facility] [address] [place] [address] Amanda Fernández, RN [address] [place], [place] 01/26/2025 9:00 AM EDT Office Visit [facility] ADULT D[facility] [address] [place] [address] Christian Winchester DDS [address] [place] [address] 02/17/2025 10:15 AM EDT Office Visit [facility] [address] [place] [address] Gabriela Gaitan [address] [place] [address] documented as of this encounter Goals Goal [...] documented as of this encounter Care Teams Manufacturing Assembler Relationship Specialty Start Date End Date Pascual Daly MD [address] [place] [address] PCP - General Internal Medicine 02/22/14 Dasia Waters PharmD [address] [place] [address] Pharmacist Internal Medicine 08/16/24 Iker MARCUSA 12/18/24 documented as of this encounter
--- OUTSIDE RECORDS SUMMARY | 2025-01-04 11:37 | XMS_ITS | Encounter Summary ---
Author Organization [employer] Address [address] [facility] 7t [place] [address] Care Team Providers Care Fixed Route Operator Name Role Phone Pascual Daly MD Primary Care Provide r Fani Heck PharmD Unavailable [phone] Dasia Waters PharmD Unavailable [phone] Reason for Visit * Reason Comments Med Refill Encounter Details Date Type Department Care Team ([facility] [place] st Contact Info) Description 07/16/2022 Refill [facility] MEDICINE [address] [place] [address] Pascual Daly MD [address] [place] [address] Social History Tobacco Use Types Packs/Day Years [...] 10:30 AM EDT Medication Management [facility] MED[facility]INE [address] [place] [address] Dasia Waters PharmD [address] [place] [address] 01/20/2025 10:30 AM EDT Clinical Support [facility] [address] [place] [address] Amanda Fernández, AALIYAH [address] [place] [address] 01/26/2025 9:00 AM EDT Office Visit [facility] ADULT DENTAL [address] [place] [address] Christian Winchester DDS [address] [place] [address] 02/17/2025 10:15 AM EDT Office Visit [facility] ADULT DENTAL [address] [place] [address] Gabriela Gaitan [address] [place] [address] documented as of this encounter Goals Goal [...] documented as of this encounter Care Teams Fixed Route Operator Relationship Specialty Start Date End Date Pascual Daly MD [address] [place] [address] PCP - General Internal Medicine 02/22/14 Fani Heck, KristiD [address] [place] [address] Pharmacist Internal Medicine 12/16/22 08/15/24 Dasia Waters, Woody [address] [place] [address] Pharmacist Internal Medicine 08/16/24 Iker CORDERO 12/18/24 documented as of this encounter
--- OUTSIDE RECORDS SUMMARY | 2025-01-04 11:37 | XMS_ITS | Encounter Summary ---
Author Organization [employer] Address 75 [facility] 7t [place] [address] Care Team Providers Care Education Teacher Name Role Phone Pascual Daly MD Primary Care Provide r Fani Heck PharmD Unavailable [phone] Dasia Waters PharmD Unavailable [phone] Reason for Visit * Reason Comments Med Refill Encounter Details Date Type Department Care Team (Late st Contact Info) Description 10/21/2023 Refill [facility] MED[facility]INE [address] [place] [address] Titi Gray FNP Major depressive disorder with [...] Description 01/17/2025 10:30 AM EDT Medication Management [facility] MEDICINE [address] [place] [address] Dasia Waters, KristiD [address] [place] [address] 01/20/2025 10:30 AM EDT Clinical Support [facility]EDS [address] [place] [address] Amanda Fernández, RN [address] [place] [address] 01/26/2025 9:00 AM EDT Office Visit [facility] ADULT DENTAL [address] [place] [address] Christian Winchester DDS [address] [place] [address] 02/17/2025 10:15 AM EDT Office Visit [facility] ADULT DENTAL [address] [place] [address] Gabriela Gaitan [address] [place] [address] documented as of this encounter Goals Goal [...] documented as of this encounter Care Teams Education Teacher Relationship Specialty Start Date End Date Pascual Daly MD [address] [place] [address] PCP - General Internal Medicine 02/22/14 Fani Heck, PharmD [address] [place] [address] Pharmacist Internal Medicine 12/16/22 08/15/24 Dasia Waters PharmD [address] [place] [address] Pharmacist Internal Medicine 08/16/24 [facility] 12/18/24 documented as of this encounter
--- OUTSIDE RECORDS SUMMARY | 2025-01-04 11:37 | XMS_ITS | Encounter Summary ---
Author Organization [employer] Address [address] [facility] 7t [place] [address] Care Team Providers Care Customs Compliance Director Name Role Phone Pascual Daly MD Primary Care Provide r Fani Heck PharmD Unavailable + Dasia Waters PharmD Unavailable [phone] Reason for Visit * Reason Onset Date Comments Med Refill 10/11/2022 Encounter Details Date Type Department Care Team ([facility] st Contact Info) Description 10/11/2022 Telephone [facility] MEDICINE [address] [place], [place] [phone] Pascual Daly MD [address] [place], [place] [phone] Med Refill Social History Tobacco Use Types [...] Description 01/17/2025 10:30 AM EDT Medication Management [facility] MEDICINE [address] [place] [address] Dasia Waters, KristiD [address] [place] [address] 01/20/2025 10:30 AM EDT Clinical Support [facility] [address] [place] [address] Amanda Fernández, RN [address] [place] [address] 01/26/2025 9:00 AM EDT Office Visit [facility] ADULT DENTAL [address] [place] [address] Christian Winchester DDS [address] [place] [address] 02/17/2025 10:15 AM EDT Office Visit [facility] ADULT DENTAL [address] [place] [address] Gabriela Gaitan [address] [place] [address] documented as of this encounter Goals Goal [...] documented as of this encounter Care Teams Customs Compliance Director Relationship Specialty Start Date End Date Pascual Daly MD [address] [place] [address] PCP - General Internal Medicine 11/4/14 Fani Heck, KristiD [address] [place] [address] Pharmacist Internal Medicine 12/16/22 08/15/24 Dasia Waters PharmD [address] [place] [address] Pharmacist Internal Medicine 08/16/24 Beulah A 12/18/24 documented as of this encounter
--- OUTSIDE RECORDS SUMMARY | 2025-01-04 11:37 | XMS_ITS | Encounter Summary ---
Author Organization [employer] Address [address] [facility] 7t [place] [address] Care Team Providers Care Barrel Endshake Adjuster Name Role Phone Pascual Daly MD Primary Care Provide r Fani Heck PharmD Unavailable [phone] Dasia Waters PharmD Unavailable [phone] Reason for Visit * Reason Comments Med Refill Encounter Details Date Type Department Care Team (Late st Contact Info) Description 01/01/2024 Refill [facility] [address] [place], [place] [phone] Momo Rizo MD [address] [place] [address] Social History Tobacco Use Types Packs/Day Years [...] 01/17/2025 10:30 AM EDT Medication Management [facility] [address] [place] [address] Dasia Waters, PharmD [address] [place] [address] 01/20/2025 10:30 AM EDT Clinical Support [facility] [address] [place] [address] Amanda Fernández, RN [address] [place] [address] 01/26/2025 9:00 AM EDT Office Visit [facility] [address] [place] [address] Christian Winchester DDS [address] [place] [address] 02/17/2025 10:15 AM EDT Office Visit [facility] [address] [place] [address] Gabriela Gaitan [address] [place] [address] documented as of this encounter Goals Goal [...] documented as of this encounter Care Teams Barrel Endshake Adjuster Relationship Specialty Start Date End Date Pascual Daly MD [address] [place] [address] PCP - General Internal Medicine 02/22/14 Fani Heck, PharmD [address] [place] [address] Pharmacist Internal Medicine 12/16/22 08/15/24 Dasia Waters PharmD [address] [place] [address] Pharmacist Internal Medicine 08/16/24 Iker MARCUSA 12/18/24 documented as of this encounter
--- OUTSIDE RECORDS SUMMARY | 2025-01-04 11:37 | XMS_ITS | Encounter Summary ---
Author Organization [employer] Address [address] [facility] 7t [place] [address] Care Team Providers Care Steeler Name Role Phone Pascual Daly MD Primary Care Provide r Fani Heck PharmD Unavailable [phone] Dasia Waters PharmD Unavailable [phone] Reason for Visit * Reason Comments Med Refill Encounter Details Date Type Department Care Team ([facility] Contact Info) Description 12/28/2022 Refill [facility] [address] [place] [address] Titi Gray FNP Major depressive disorder with [...] Upcoming Encounters Date Type Department Care Team ([facility] Contact Info) Description 01/17/2025 10:30 AM EDT Medication Management [facility] [address] [place], [place] [phone] Dasia Waters PharmD [address] [place] [address] 01/20/2025 10:30 AM EDT Clinical Support [facility] [address] [place] [address] Amanda Fernández, RN [address] [place], [place] 01/26/2025 9:00 AM EDT Office Visit [facility] ADULT DENTAL [address] [place] [address] Christian Winchester DDS [address] [place] [address] 02/17/2025 10:15 AM EDT Office Visit [facility] ADULT DENT[facility] [address] [place] [address] Gabriela Gaitan [address] [place] [address] documented as of this encounter Goals Goal [...] documented as of this encounter Care Teams Steeler Relationship Specialty Start Date End Date Pascual Daly MD [address] [place] [address] PCP - General Internal Medicine 02/22/14 Fani Heck PharmD [address] [place] [address] Pharmacist Internal Medicine 12/16/22 08/15/24 Dasia Waters PharmD [address] [place] [address] Pharmacist Internal Medicine 08/16/24 Iker CORDERO 12/18/24 documented as of this encounter
--- OUTSIDE RECORDS SUMMARY | 2025-01-04 11:37 | XMS_ITS | Encounter Summary ---
Author Organization [employer] Address [address] [facility] 7t [place] [address] Care Team Providers Care Crop Farm Helper Name Role Phone Pascual Daly MD Primary Care Provide r Fani Heck PharmD Unavailable +2 Dasia Waters PharmD Unavailable [phone] Reason for Visit * Reason Comments Med Refill Encounter Details Date Type Department Care Team ([facility] st Contact Info) Description 03/04/2023 Refill [facility] MEDICINE [address] [place] [address] Pascual Daly MD [address] [place] [address] Type 2 diabetes mellitus without complication, with long-term current use of insulin ([facility]) Social History Tobacco Use [...] Description 01/17/2025 10:30 AM EDT Medication Management [facility] MEDICINE [address] [place] [address] Dasia Waters, PharmD [address] [place] [address] 01/20/2025 10:30 AM EDT Clinical Support [facility] CHC MED & PEDS [address] [place] [address] Amanda Fernández, RN 505 [place] [address] 01/26/2025 9:00 AM EDT Office Visit [facility] ADULT DENTAL [address] [place] [address] Christian Winchester DDS [address] [place] [address] 02/17/2025 10:15 AM EDT Office Visit [facility] ADULT DENTAL [address] [place] [address] Gabriela Gaitan [address] [place] [address] documented as of this encounter Goals Goal Patient Goal Type Associated Problems Recent Progress Patient-Stated? Author Blood Pressure < 140/90 Blood Pressure 126/59( 025 9:28 AM EDT) No Fani Heck, PharmGuido documented as of this encounter Visit Diagnoses Diagnosis Type 2 diabetes mellitus without complication, with long-term current use of insulin ([facility]) documented in this encounter Additional Health Concerns Assessment Noted Time PHQ-9 Depression Total Score: 9 02/25/20 23 11:02 AM EST documented as of this encounter Care Teams Crop Farm Helper Relationship Specialty Start Date End Date Pascual Daly MD [address] [place] [address] PCP - General Internal Medicine 02/22/14 Fani Heck, PharmD [address] [place] [address] Pharmacist Internal Medicine 12/16/22 08/15/24 Dasia Waters PharmD [address] [place] [address] Pharmacist Internal Medicine 08/16/24 Iker CORDERO 12/18/24 documented as of this encounter
--- OUTSIDE RECORDS SUMMARY | 2025-01-04 11:37 | XMS_ITS | Encounter Summary ---
Author Organization [employer] Address [address] [facility] 7t [place] [address] Care Team Providers Care Sterile Technician Name Role Phone Pascual Daly MD Primary Care Provide r Fani Heck PharmD Unavailable + Dasia Waters PharmD Unavailable [phone] Encounter Details Date Type Department Care Team (Late st Contact Info) Description 07/01/2022 Abstract [facility] [address] [place] [address] Pascual Daly MD [address] [place] [address] Social History Tobacco Use Types Packs/Day Years [...] 01/17/2025 10:30 AM EDT Medication Management [facility] MEDICINE [address] [place] [address] Dasia Waters, KristiD [address] [place] [address] 01/20/2025 10:30 AM EDT Clinical Support [facility] CH[facility] MED & PEDS [address] [place] [address] Amanda Fernández, RN 505 [place] [address] 01/26/2025 9:00 AM EDT Office Visit [facility] ADULT DENTAL [address] [place] [address] Christian Winchester DDS [address] [place] [address] 02/17/2025 10:15 AM EDT Office Visit [facility] ADULT DENTAL [address] [place] [address] Gabriela Gaitan [address] [place] [address] documented as of this encounter Goals Goal [...] as of this encounter Care Teams Sterile Technician Relationship Specialty Start Date End Date Pascual Daly MD [address] [place] [address] PCP - General Internal Medicine 02/22/14 Fani Heck, KristiD [address] [place] [address] Pharmacist Internal Medicine 12/16/22 08/15/24 Dasia Waters PharmD [address] [place] [address] Pharmacist Internal Medicine 08/16/24 [place] 12/18/24 documented as of this encounter
--- OUTSIDE RECORDS SUMMARY | 2025-01-04 11:37 | XMS_ITS | Encounter Summary ---
Author Organization [employer] Address 75 [facility] 7t [place] [address] Care Team Providers Care Structural Metal Worker Name Role Phone Pascual Daly MD Primary Care Provide r Fani Heck PharmD Unavailable +6 Dasia Waters PharmD Unavailable [phone] Reason for Visit * Reason Onset Date Comments FYI 12/31/2023 Encounter Details Date Type Department Care Team ([facility] st Contact Info) Description 12/31/2023 Telephone [facility] MEDICINE [address] [place], [place] [phone] Pascual Daly MD 230 [place] [address] Social History Tobacco Use Types Packs/Day Years [...] any questions you can contact Franky at [phone]. documented in this encounter Plan of Treatment Upcoming Encounters Date Type Department Care Team (Late st Contact Info) Description 01/17/2025 10:30 AM EDT Medication Management [facility] MEDICINE [address] [place] [address] Dasia Waters, PharmD 230 [place] [address] 01/20/2025 10:30 AM EDT Clinical Support [facility] CHC MED & PEDS 505 [place] [address] Amanda Fernández, RN 505 [place] [address] 01/26/2025 9:00 AM EDT Office Visit [facility] ADULT DENTAL 230 [place] [address] Christian Winchester DDS 230 [place] [address] 02/17/2025 10:15 AM EDT Office Visit [facility] ADULT DENTAL 230 [place] [address] Gabriela Gaitan 230 [place] [address] documented as of this encounter Goals Goal [...] documented as of this encounter Care Teams Structural Metal Worker Relationship Specialty Start Date End Date [place] [address] PCP - General Internal Medicine 02/22/14 Fani Heck, [place] [address] Pharmacist Internal Medicine 12/16/22 08/15/24 Dasia Waters, [place] [address] Pharmacist Internal Medicine 08/16/24 [place] [facility] 12/18/24 documented as of this encounter
--- OUTSIDE RECORDS SUMMARY | 2025-01-04 11:37 | XMS_ITS | Encounter Summary ---
Author Organization [employer] Address 75 [facility] 7t [place] [address] Care Team Providers Care Customer Associate Name Role Phone Pascual Daly MD Primary Care Provide r Fani Heck PharmD Unavailable +3 Dasia Waters PharmD Unavailable [phone] Reason for Visit * Reason Comments Med Refill Encounter Details Date Type Department Care Team (Late st Contact Info) Description 10/21/2023 Refill [facility] MEDICINE [address] [place] [address] Titi Gray FNP Major depressive disorder with [...] Description 01/17/2025 10:30 AM EDT Medication Management [facility] MEDICINE [address] [place] [address] Dasia Waters, KristiD 230 [place] [address] 01/20/2025 10:30 AM EDT Clinical Support [facility] CHC MED & PEDS 505 [place] [address] Amanda Fernández, RN 505 [place] [address] 01/26/2025 9:00 AM EDT Office Visit [facility] ADULT DENTAL [address] [place] [address] Christian Winchester DDS 230 [place] [address] 02/17/2025 10:15 AM EDT Office Visit [facility] ADULT DENTAL [address] [place] [address] Gabriela Gaitan 230 [place] [address] documented as of this encounter Goals Goal [...] as of this encounter Care Teams Customer Associate Relationship Specialty Start Date End Date Pascual Daly MD 230 [place] [address] PCP - General Internal Medicine 02/22/14 Fani Heck, PharmD [address] [place] [address] Pharmacist Internal Medicine 12/16/22 08/15/24 Dasia Waters PharmD 230 [place] [address] Pharmacist Internal Medicine 08/16/24 [place] [facility] 12/18/24 documented as of this encounter
--- OUTSIDE RECORDS SUMMARY | 2025-01-04 11:38 | XMS_ITS | Encounter Summary ---
Author Organization [employer] Address 75 [facility] 7t [place] [address] Care Team Providers Care Ship Mate Name Role Phone Pascual Daly MD Primary Care Provide r Fani Heck PharmD Unavailable + Dasia Waters PharmD Unavailable [phone] Encounter Details Date Type Department Care Team (Late Contact Info) Description 03/11/2022 Abstract [facility] MEDICINE [address] [place] [address] Fani Heck, PharmD 230 [place], [place] [phone] Social History Tobacco Use Types Packs/Day Years [...] Upcoming Encounters Date Type Department Care Team ([facility] Contact Info) Description 01/17/2025 10:30 AM EDT Medication Management [facility] MEDICINE [address] [place], [place] [phone] Dasia Waters, PharmD 230 [place], [place] [phone] 01/20/2025 10:30 AM EDT Clinical Support [facility] CHC MED & PEDS [address] [place] [address] Amanda Fernández, RN 505 [place] [address] 01/26/2025 9:00 AM EDT Office Visit [facility] ADULT DENTAL 230 [place] [address] Christian Winchester DDS [address] [place] [address] 02/17/2025 10:15 AM EDT Office Visit [facility] ADULT DENTAL [address] [place] [address] Gabriela Gaitan [address] [place] [address] documented as of this encounter Visit Diagnoses Not on filedocumented in this encounter Care Teams Ship Mate Relationship Specialty Start Date End Date Pascual Daly MD [address] [place] [address] PCP - General Internal Medicine 02/22/14 Fani Heck, PharmD [address] [place] [address] Pharmacist Internal Medicine 12/16/22 08/15/24 Dasia Waters, KristiD [address] [place] [address] Pharmacist Internal Medicine 08/16/24 [facility] 12/18/24 documented as of this encounter
--- OUTSIDE RECORDS SUMMARY | 2025-01-04 11:38 | XMS_ITS | Encounter Summary ---
Author Organization [employer] Address [address] [facility] 7t [place] [address] Care Team Providers Care Cigar Making Machine Supervisor Name Role Phone Pascual Daly MD Primary Care Provide r Fani Heck PharmD Unavailable + Dasia Waters PharmD Unavailable [phone] Encounter Details Date Type Department Care Team (Late st Contact Info) Description 03/11/2022 Abstract [facility] [address] [place] [address] Pascual Daly MD 230 [place], [place] [phone] Social History Tobacco Use Types Packs/Day Years [...] Description 01/17/2025 10:30 AM EDT Medication Management [facility] 230 [place] [address] Dasia Waters, PharmD 230 [place] [address] 01/20/2025 10:30 AM EDT Clinical Support [facility] MED & PEDS 505 [place] [address] Amanda Fernández, RN 505 [place] [address] 01/26/2025 9:00 AM EDT Office Visit [facility] ADULT DENTAL 230 [place] [address] Christian Winchester DDS [address] [place] [address] 02/17/2025 10:15 AM EDT Office Visit [facility] ADULT DENTAL [address] [place] [address] Gabriela Gaitan [address] [place] [address] documented as of this encounter Visit Diagnoses Not on filedocumented in this encounter Care Teams Cigar Making Machine Supervisor Relationship Specialty Start Date End Date Pascual Daly MD [address] [place] [address] PCP - General Internal Medicine 02/22/14 Fani Heck, KristiD [address] [place] [address] Pharmacist Internal Medicine 12/16/22 08/15/24 Dasia Waters, KristiD [address] [place] [address] Pharmacist Internal Medicine 08/16/24 [place] [facility] 12/18/24 documented as of this encounter
--- OUTSIDE RECORDS SUMMARY | 2025-01-04 11:38 | XMS_ITS | Encounter Summary ---
Author Organization [employer] Address 75 [facility] 7t [place] [address] Care Team Providers Care Industrial Illuminating Engineer Name Role Phone Pascual Daly MD Primary Care Provide r Fani Heck PharmD Unavailable +2 Dasia Waters PharmD Unavailable [phone] Encounter Details Date Type Department Care Team (Late Contact Info) Description 03/13/2022 Abstract [facility] MEDICINE [address] [place] [address] Provider, MD Bill Social History Tobacco Use [...] Upcoming Encounters Date Type Department Care Team ([facility] Contact Info) Description 01/17/2025 10:30 AM EDT Medication Management [facility] MEDICINE [address] [place] [address] Dasia Waters, PharmD 230 [place] [address] 01/20/2025 10:30 AM EDT Clinical Support [facility] CHC MED & PEDS 505 [place] [address] Amanda Fernández, RN 505 [place] [address] 01/26/2025 9:00 AM EDT Office Visit [facility] ADULT DENTAL 230 [place] [address] Christian Winchester DDS [address] [place] [address] 02/17/2025 10:15 AM EDT Office Visit [facility] ADULT DENTAL [address] [place] [address] Kandy, Gabriela [address] [place] [address] documented as of this encounter Visit Diagnoses Not on filedocumented in this encounter Care Teams Industrial Illuminating Engineer Relationship Specialty Start Date End Date Pascual Daly MD [address] [place] [address] PCP - General Internal Medicine 02/22/14 Fani Heck, KristiD [address] [place] [address] Pharmacist Internal Medicine 12/16/22 08/15/24 Dasia Waters, KristiD [address] [place] [address] Pharmacist Internal Medicine 08/16/24 [place] [facility] 12/18/24 documented as of this encounter
--- OUTSIDE RECORDS SUMMARY | 2025-01-04 11:38 | XMS_ITS | Encounter Summary ---
Author Organization [facility] Address [address] [place] [address] Care Team Providers Care Fabric Worker Foreman Name Role Phone Pascual Darnell MD Primary Care Provi chio Encounter Details Date Type Department Care Team (Late Contact Info) Description 11/23/2024 Lab Requisition [facility] - Main Lab [address] [facility] [place] [phone] Vero Mike MD [address] [place], [place] [phone] Type 1 diabetes mellitus with hyperglycemia (CMS/HCC V24, CMS/HCC V28); Old myocardial infarction; Essential (primary) hypertension; Vitamin D deficiency, unspecified Social History Tobacco Use Types Packs/Day Years Used Date Smoking Tobacco: Never Assessed Comments Unknown Sex and Gender Information Value Date Recorded Sex Assigned at Not on file Legal Sex Female 1:35 PM EDT Gender Identity Not on file Sexual Orientation Not on file documented as of this encounter Plan of Treatment Upcoming Encounters Date Type Department Care Team (Late Contact Info) Description 03/15/2025 10:15 AM EST Office Visit Orthopedic [facility] [place] [address] [phone] Luciano Smith DPM [address] [phone] documented as of this encounter Procedures Procedure Name Priority Date/Time Associated Diagnosis Comments VITAMIN D 25 HYDROXY Routine 11/24/2024 6:16 AM EDT Type 1 diabetes mellitus with hyperglycemia (CMS/HCC V24, CMS/HCC V28) Old myocardial infarction Essential (primary) hypertension Vitamin D deficiency, unspecified COMPLETE BLOOD COUNT Routine 11/24/2024 6:16 AM EDT Type 1 diabetes mellitus with hyperglycemia ([facility] V24, [facility]/HCC V28) Old myocardial infarction Essential (primary) hypertension Vitamin D deficiency, unspecified THYROID STIMULATING HORMONE Routine 11/24/2024 6:16 AM EDT Type 1 diabetes mellitus with hyperglycemia ([facility]/HCC V24, [facility] V28) Old myocardial infarction Essential (primary) hypertension Vitamin D deficiency, unspecified HEMOGLOBIN A1C Routine 11/24/2024 6:16 AM EDT Type 1 diabetes mellitus with hyperglycemia ([facility]/HCC V24, [facility] V28) Old myocardial infarction Essential (primary) hypertension Vitamin D deficiency, unspecified VITAMIN B12 Routine 11/24/2024 6:16 AM EDT Type 1 diabetes mellitus with hyperglycemia ([facility]/HCC V24, [facility] V28) Old myocardial infarction Essential (primary) hypertension Vitamin D deficiency, unspecified COMPREHENSIVE METABOLIC PANEL Routine 11/24/2024 6:16 AM EDT Type 1 diabetes mellitus with hyperglycemia ([facility]/HCC V24, [facility] V28) Old myocardial infarction Essential (primary) hypertension Vitamin D deficiency, unspecified documented in this encounter Results * (ABNORMAL) Hemoglobin A1c (11/24/2024 6:16 AM EDT) Hemoglobin A1C 8.9(H) <6.5 % LAB CHEMISTRY METHOD 11/24/2024 12:29 PM EDT [facility] Mean Bld Glu Estim. 209 mg/dL LAB CHEMISTRY METHOD 11/24/2024 12:29 PM EDT [facility] Blood Venous blood specimen / Unknown Venipuncture / Unknown 11/24/2024 6:16 AM EDT 11/24/2024 10:24 AM EDT us Fahim A Rashid MD LAB BLOOD ORDERABLES Final Resul t [facility] [address] [place] [address], * (ABNORMAL) Complete blood count (11/24/2024 6:16 AM EDT) WBC 8.5 4.8 - 10.8 K/mcL LAB HEMETOLOGY METHOD 11/24/2024 11:00 AM [facility] RBC 3.80 3.80 - 4.80 M/mcL LAB HEMETOLOGY METHOD 11/24/2024 11:00 AM [facility] Hemoglobin 10.4(L) 11.5 - 16.0 g/dL LAB HEMETOLOGY METHOD 11/24/2024 11:00 AM [facility] Hematocrit 32.5(L) 35.0 - 47.0 % LAB HEMETOLOGY METHOD 11/24/2024 11:00 AM [facility] MCV 86.2 79.0 - 98.0 FL LAB HEMETOLOGY METHOD 11/24/2024 11:00 AM [facility] MCH 27.6 27.0 - 32.0 pcg LAB HEMETOLOGY METHOD 11/24/2024 11:00 AM [facility] MCHC 32.0 32.0 - 37.0 g/dL LAB HEMETOLOGY METHOD 11/24/2024 11:00 AM [facility] RDW 13.1 11.0 - 15.0 % LAB HEMETOLOGY METHOD 11/24/2024 11:00 AM [facility] Platelets 345 130 - 400 K/mcL LAB HEMETOLOGY METHOD 11/24/2024 11:00 AM [facility] MPV 10.1 7.0 - 11.0 FL LAB HEMETOLOGY METHOD 11/24/2024 11:00 AM EDT [facility] NRBC 0.0 <1.0 % LAB HEMETOLOGY METHOD 11/24/2024 11:00 AM EDT [facility] NRBC Absolute 0.00 <0.10 K/mcL LAB HEMETOLOGY METHOD 11/24/2024 11:00 AM T [facility] Blood Venous blood specimen / Unknown Venipuncture / Unknown 11/24/2024 6:16 AM EDT 11/24/2024 10:24 AM EDT us Vero Mike MD LAB BLOOD ORDERABLES Final Resul t [facility] [address] [place] [address], [place] [phone] * (ABNORMAL) Comprehensive metabolic panel (11/24/2024 6:16 AM EDT) Sodium 138 133 - 145 mmol/L LAB CHEMISTRY METHOD 11/24/2024 11:35 AM [facility] Potassium 4.5 3.5 - 5.5 mmol/L LAB CHEMISTRY METHOD 11/24/2024 11:35 AM [facility] Chloride 104 96 - 110 mmol/L LAB CHEMISTRY METHOD 11/24/2024 11:35 AM [facility] CO2 28 21 - 32 mmol/L LAB CHEMISTRY METHOD 11/24/2024 11:35 AM [facility] Anion Gap 6 3 - 11 LAB CHEMISTRY METHOD 11/24/2024 11:35 AM [facility] Glucose 77 70 - 100 mg/dL LAB CHEMISTRY METHOD 11/24/2024 11:35 AM [facility] BUN 21 5 - 25 mg/dL LAB CHEMISTRY METHOD 11/24/2024 11:35 AM [facility] Creatinine 0.96 0.50 - 1.10 mg/dL LAB CHEMISTRY METHOD 11/24/2024 11:35 AM [facility] eGFR 62 >=60 mL/min/1. 73m2 LAB CHEMISTRY METHOD 11/24/2024 11:35 AM [facility] Comment:Calculation based on the Chronic Kidney Disease Epidemiology Collaboration (CKD-EPI) equation refit without adjustment for race. BUN/Creatinine Ratio 21.9 LAB CHEMISTRY METHOD 11/24/2024 11:35 AM [facility] Calcium 9.2 8.5 - 10.5 mg/dL LAB CHEMISTRY METHOD 11/24/2024 11:35 AM [facility] AST (SGOT) 18 10 - 42 unit/L LAB CHEMISTRY METHOD 11/24/2024 11:35 AM [facility] ALT (SGPT) 26 10 - 60 unit/L LAB CHEMISTRY METHOD 11/24/2024 11:35 AM [facility] Alkaline Phosphatase 99 42 - 121 unit/L LAB CHEMISTRY METHOD 11/24/2024 11:35 AM [facility] Total Protein 5.6(L) 6.0 - 8.0 g/dL LAB CHEMISTRY METHOD 11/24/2024 11:35 AM [facility] Albumin 3.3 3.2 - 5.0 g/dL LAB CHEMISTRY METHOD 11/24/2024 11:35 AM [facility] Total Bilirubin 0.3 0.0 - 1.4 mg/dL LAB CHEMISTRY METHOD 11/24/2024 11:35 AM [facility] Blood Venous blood specimen / Unknown Venipuncture / Unknown 11/24/2024 6:16 AM EDT 11/24/2024 10:32 AM EDT us Vero Mike MD LAB BLOOD ORDERABLES Final Resul t [facility] [address] [place] [address], [place] [phone] * Thyroid stimulating hormone (11/24/2024 6:16 AM EDT) [facility] TSH 1.63 0.40 - 4.00 mcIU/mL LAB CHEMISTRY METHOD 11/24/2024 1:30 PM EDT [facility] Blood Venous blood specimen / Unknown Venipuncture / Unknown 11/24/2024 6:16 AM EDT 11/24/2024 10:32 AM EDT us Vero Mike MD LAB BLOOD ORDERABLES Final Resul t Performing Organization Address City/[facility] Co de Phone Number [facility] [address] [place] [address], [place] [phone] * Vitamin D 25 hydroxy (11/24/2024 6:16 AM EDT) [facility] Vit D, 25-Hydroxy 50.1 30.0 - 80.0 ng/mL LAB CHEMISTRY METHOD 11/24/2024 1:30 PM EDT [facility] Blood Venous blood specimen / Unknown Venipuncture / Unknown 11/24/2024 6:16 AM EDT 11/24/2024 10:32 AM EDT us Vero Mike MD LAB BLOOD ORDERABLES Final Resul t Performing Organization Address City/[facility]/ZIP Co de Phone Number [facility] [address] [place] [address], [place] [phone] * (ABNORMAL) Vitamin B12 (11/24/2024 6:16 AM EDT) [facility] Vitamin B-12 979(H) 250 - 900 pcg/mL LAB CHEMISTRY METHOD 11/24/2024 11:58 AM EDT [facility] Blood Venous blood specimen / Unknown Venipuncture / Unknown 11/24/2024 6:16 AM EDT 11/24/2024 10:32 AM EDT us Vero Mike MD LAB BLOOD ORDERABLES Final Resul t [facility] ([facility]) [facility] [address] [place] [address], documented in this encounter Visit Diagnoses Diagnosis Type 1 diabetes mellitus with hyperglycemia (CMS/[facility] V24, [facility] V28) Old myocardial infarction Essential (primary) hypertension Unspecified essential hypertension Vitamin D deficiency, unspecified documented in this encounter Care Teams Fabric Worker Foreman Relationship Specialty Start Date End Date Pascual Darnell MD [address] [place] [address] PCP - General Internal Medicine 06/18/24 documented as of this encounter
--- OUTSIDE RECORDS SUMMARY | 2025-01-04 11:38 | XMS_ITS | Encounter Summary ---
Author Organization [facility] Address [address] [place] [address] Care Team Providers Care Family Life Counselor Name Role Phone Pascual Darnell MD Primary Care Provi chio Encounter Details Date Type Department Care Team (Late st Contact Info) Description 11/16/2024 Lab Requisition [facility] - Main Lab [address] [facility] [place] [phone] Vero Mike MD [address] [place] [address] Altered mental status, unspecified Social History Tobacco Use Types Packs/Day [...] AM EST Office Visit Orthopedic Surgery - [place] [address] [phone] Luciano Smith DPM 175 [facility] [address] [place] [phone] documented as of this encounter Procedures Procedure Name Priority Date/Time Associated Diagnosis Comments URINALYSIS WITH REFLEX MICROSCOPIC Routine 11/15/2024 12:20 PM EDT Altered mental status, unspecified URINALYSIS WITH REFLEX MICROSCOPIC Routine 11/15/2024 12:20 PM EDT Altered mental status, unspecified CULTURE URINE Routine 11/15/2024 12:20 PM EDT Altered mental status, unspecified documented in this encounter Results * (ABNORMAL) Urinalysis with reflex microscopic (11/15/2024 12:20 PM EDT) Specific [place] Urine 1.012 1.003 - 1.030 LAB URINALYSIS - AUTOMATED METHOD 11/16/2024 9:[address] [facility] pH, Urine 6.0 5.0 - 8.0 pH LAB URINALYSIS - AUTOMATED METHOD 11/16/2024 9:[address] [facility] Leukocytes, Urine Small(A) Negative LAB URINALYSIS - AUTOMATED METHOD 11/16/2024 9:[address] [facility] Nitrite, Urine Negative Negative LAB URINALYSIS - AUTOMATED METHOD 11/16/2024 9:[address] [facility] Protein, Urine Negative <=Trace mg/dL LAB URINALYSIS - AUTOMATED METHOD 11/16/2024 9:[address] [facility] Glucose, Urine 100(A) Negative mg/dL LAB URINALYSIS - AUTOMATED METHOD 11/16/2024 9:[address] [facility] Ketones, Urine Negative Negative mg/dL LAB URINALYSIS - AUTOMATED METHOD 11/16/2024 9:[address] [facility] Urobilinogen, Urine 0.2 0.2 - 1.0 mg/dL LAB URINALYSIS - AUTOMATED METHOD 11/16/2024 9:[address] [facility] Bilirubin, Urine Negative Negative LAB URINALYSIS - AUTOMATED METHOD 11/16/2024 9:[address] [facility] Blood, Urine Negative Negative LAB URINALYSIS - AUTOMATED METHOD 11/16/2024 9:[address] [facility] RBC, Urine 1.7 0 - 4 /HPF LAB URINALYSIS - AUTOMATED METHOD 11/16/2024 9:53 AM EDT [facility] WBC, Urine 4.4(H) 0 - 4 /HPF LAB URINALYSIS - AUTOMATED METHOD 11/16/2024 9:53 AM EDT [facility] Squamous Epithelial, Urine 42 0 - 60 /LPF LAB URINALYSIS - AUTOMATED METHOD 11/16/2024 9:53 AM EDT [facility] Bacteria, Urine Many(A) Negative /HPF LAB URINALYSIS - AUTOMATED METHOD 11/16/2024 9:53 AM EDT [facility] Hyaline Casts, Urine 1.2 0 - 3 /LPF LAB URINALYSIS - AUTOMATED METHOD 11/16/2024 9:53 AM EDT [facility] Urine Urine specimen obtained by clean catch procedure / Unknown Non-blood Collection / Unknown 11/15/2024 12:20 PM EDT 11/16/2024 9:33 AM EDT us Vero Mike MD LAB URINE ORDERABLES Final Resul t [facility] [address] [place] [address], * (ABNORMAL) Culture urine (11/15/2024 12:20 PM EDT) Culture, Urine >=100,000 CFU/mL Klebsiella pneumoniae ssp pneumoniae(A) ANA 11/18/2024 10:57 AM EDT [facility] Comment: This is an edited [...] Trimethoprim/Sulfamethoxazo le ANA <=20 ug/ml: Susceptible us Faleno Mike MD LAB MICROBIOLOGY - GENERAL ORDER ELIU Final Result [facility] [address] [place] [address], documented in this encounter Visit Diagnoses Diagnosis Altered mental status, unspecified documented in this encounter Care Teams Family Life Counselor Relationship Specialty Start Date End Date Pascual Darnell MD [address] [place] [phone] PCP - General Internal Medicine 06/18/24 documented as of this encounter
== END 2025-01-04 09:15 | disposition home or self-care (01) ==
LOC: HO.HOSX 09:14
PROVIDERS: Visit Provider Orthopaedic Surgery
DX: Z13.89 Encounter for screening for other disorder (principal)

== ENCOUNTER 2025-01-05 09:59 | Outpatient (AMB) | payer OTHER, SELFPAY ==
--- OUTSIDE RECORDS SUMMARY | 2025-01-04 09:30 | XMS_ITS | Encounter Summary ---
Author Organization [employer] Address [address] [facility] 7t [place] [address] Care Team Providers Care Metal Refiner Name Role Phone Pascual Daly MD Primary Care Provide r Dasia Waters PharmD Unavailable [phone] Reason for Referral * Consultation (Routine) - Authorized Specialty Diagnoses / Procedures Referred By Contac t Referred To Contact Urology Diagnoses Mixed stress and urge urinary incontinence Pascual Daly MD [address] [place] [address] Phone: tel: fax: [facility] Referral ID Status Reason Start Date Expiration Date Visits Requested Visits Authorized [id number] Authorized Specialty Services Required 01/04/2025 01/04/2026 1 1 Encounter Details Date Type Department Care Team (Latest Contact Info) Description 01/04/2025 9:30 AM EDT Office Visit [facility] MEDICINE [address] [place] [address] [phone] Pascual Daly MD [address] [place] [address] [phone] Hospital discharge follow-up (Primary Dx); Type 2 diabetes mellitus with right eye affected by mild nonproliferative retinopathy without macular edema, with long-term current use of insulin (CMS/HCC); Rheumatoid arthritis involving multiple sites with positive rheumatoid factor ([facility]/HCC); Major depressive disorder with psychotic features [...] ear normal. Nose: Nose normal. Mouth/Throat: Lips: Haigler. Mouth: Mucous membranes are moist. Pharynx: Oropharynx [...] discharge follow-up - Primary Patient admitted [place] [facility] [place] (11/08/24 - 11/10/24) S/P fall and head injury at the visit with hematology. Eventually admitted for head injury and wrist injury. Patient's 4th finger was dislocated, lip, nose, and forehead were lacerated. Physical Therapy recommended rehabilitation. Eventually discharged to [facility] for not meeting medical necessity for hospitalization. Instructed to follow up with orthopedics team. She was at [facility] from 11/10/24 - 12/17/24 Discharged home with medications and fdc services. Instructed to follow up with PCP with us in 7 to 10 days. Today she feels fine, no complaints, has a follow up with orthopedics tomorrow Type 2 diabetes mellitus with right eye affected by mild nonproliferative retinopathy without macular edema, with long-term current use of insulin ([facility]) Pt here for a f/u She is under the care of Endocrinology last seen 11/08/2024 She is on: Tresiba 18 units Fiasp 100-151 unit 151-200 4 units 201-250 5 units 250-300 6 year Over 300 70 units She has a VNA at home. Hgb A1c 11/24/2024: 8.9 from 7.8 Eye exam done on: 12/2023 [facility] Dx with new [...] involving multiple sites with positive rheumatoid factor ([facility]) Under the care of Rheumatology on Actemra 162, last note 10/2023 Major depressive disorder with psychotic features ([facility]) Titi Gray retired She has a new Psychiatrist and a psychotherapist in [place] She tells me she is taking Effexor, [...] 01/17/2025 10:30 AM Dasia Waters PharmD MEDICINE [facility] 01/20/2025 10:30 AM Amanda Fernández RN [facility] MED [facility] 01/26/2025 9:00 AM Christian Winchester DDS ADLT DENT [facility] 02/17/2025 10:15 AM Gabriela Gaitan ADLT DENT [facility] [1] Allergies Allergen Reactions Celecoxib Nausea [...] a new Psychiatrist and a psychotherapist in [place] She tells me she is taking Effexor, Klonopin and another one she cannot remember * Assessment & Plan Note - Pascual Terry MD - 01/04/2025 9:23 AM EDT Associated Problem(s): Rheumatoid arthritis involving multiple sites with positive rheumatoid factor ([facility]) Under the care of Rheumatology on Actemra 162, last note 10/2023 * Assessment & Plan Note - Pascual Terry MD - 01/04/2025 9:21 AM EDT Associated Problem(s): Type 2 diabetes mellitus with right eye affected by mild nonproliferative retinopathy without macular edema, with long-term current use of insulin ([facility]) Pt here for a f/u She is under the care of Endocrinology last seen 11/08/2024 She is on: Tresiba 18 units Fiasp 100-151 unit 151-200 4 units 201-250 5 units 250-300 6 year Over 300 70 units She has a VNA at home. Hgb A1c 11/24/2024: 8.9 from 7.8 Eye exam done on: 12/2023 [facility] Dx with new [...] Problem(s): Hospital discharge follow-up Patient admitted to [facility] from (11/08/24 - 11/10/24) S/P fall and head injury at the visit with hematology. Eventually admitted for head injury and wrist injury. Patient's 4th finger was dislocated, lip, nose, and forehead were lacerated. Physical Therapy recommended rehabilitation. Eventually discharged to [facility] for not meeting medical necessity for hospitalization. Instructed to follow up with orthopedics team. She was at [facility] from 11/10/24 - 12/17/24 Discharged home with medications and fdc services. Instructed to follow up with PCP with us in 7 to 10 days. Today she feels fine, no complaints, has a follow up with orthopedics tomorrow documented in this encounter Plan of Treatment Upcoming Encounters Date Type Department Care Team (Late st Contact Info) Description 01/17/2025 10:30 AM EDT Medication Management [facility] MEDICINE [address] [place] [address] Dasia Waters, KristiD [address] [place] [address] 01/20/2025 10:30 AM EDT Clinical Support [facility] MED & PEDS [address] [place] [address] Amanda Fernández, RN [address] [place] [address] 01/26/2025 9:00 AM EDT Office Visit [facility] ADULT DENTAL [address] [place] [address] Christian Winchester DDS [address] [place] [address] 02/17/2025 10:15 AM EDT Office Visit [facility] ADULT DENTAL [address] [place] [address] Gabriela Gaitan [address] [place] [address] Scheduled Referrals Name Type Priority Associated Diagnoses [...] edema, with long-term current use of insulin ([facility]) documented in this encounter Results * POCT Rapid Influenza A OSOM (01/04/2025 10:08 AM EDT) Rapid Influenza A Ag Negative Negative, Indeterminate QC Media Lot # [id number] Lot# Expiration Date ,,026 Swab Nasopharyngeal structure / Unknown 01/04/2025 10:08 AM EDT us Pascual Farfan Harrison MD POINT OF CARE TEST EN TER/EDIT ORDERABLES Final Result * POCT Rapid Covid-19 BALL ID NOW (01/04/2025 9:54 AM EDT) [facility] Coronavirus Antigen PCR Negative Negative, Indeterminate, None Detected, Invalid, Specimen unsatisfactory for evaluation, Weakly Positive, 2+ QC Media Lot # [id number] Lot# Expiration Date ,026 Swab 01/04/2025 9:54 AM EDT Pascual Terry MD POINT OF CARE TEST EN TER/EDIT ORDERABLES Final Result * POCT Rapid Influenza B BALL ID NOW (01/04/2025 9:54 AM EDT) [facility] Influenza B Negative Negative, Indeterminate [facility] QC Media Lot # [id number] [facility] Lot# Expiration Date [facility] Swab 01/04/2025 9:54 AM EDT Result [facility] Pascual Terry MD POINT OF CARE TEST EN TER/EDIT ORDERABLES Final Result [facility] [address] [place] [phone] * POCT Rapid Strep A BALL ID NOW (01/04/2025 9:51 AM EDT) [facility] Rapid Strep A Screen Negative Negative, None Detected QC Media Lot # [id number] Lot# Expiration Date ,026 Swab 01/04/2025 9:51 AM EDT Result [facility] Pascual Terry MD POINT OF CARE TEST EN TER/EDIT ORDERABLES Final Result * POCT Rapid Covid-19 BinaxNOW (01/04/2025 9:51 AM EDT) Rapid COVID Ag Negative QC Media Lot # [id number] Lot# Expiration Date , Swab 01/04/2025 9:51 AM EDT Pascual Terry MD POINT OF CARE TEST EN TER/EDIT ORDERABLES Final Result * POCT Glucose (01/04/2025 9:29 AM EDT) Glucose Blood, POC 182 60 - 200 mg/dL QC Media Lot # [id number] Lot# Expiration Date 521, Blood Capillary blood specimen / Unknown 01/04/2025 [...] documented as of this encounter Care Teams Metal Refiner Relationship Specialty Start Date End Date Pascual Daly MD [address] [place] [address] PCP - General Internal Medicine 02/22/14 Dasia Waters PharmD [address] [place] [address] Pharmacist Internal Medicine 08/16/24 Iker CORDERO 12/18/24 documented as of this encounter
[2025-01-05 10:25] VITALS: BMI 30.7
--- NOTE | 2025-01-05 10:25 | MHC.OFFVIS ---
Vital Signs 01/05/25 10:25 Height 4 ft 11 in Weight 152 lb BMI 30.7 Intake Visit Reasons: O/V left distal radius fx 11/08/24, O/V left ring finger contracture Intake Note: Brandie is a 74-year-old Chinese-speaking woman who returns for a follow up of her left ring finger contracture and her She reports having a fall on 11/08/24 while in the hospital, resulting in a left distal radius & distal ulna fracture, and a dislocation of her right ring finger PIP joint, which was reduced in ED. At her last visit she was advise to work on gentle ROM. Today patient states she continues to have swelling and pain. States she doesn't notice any difference to herleft ring finger. Traffic Workforce Representative Name: Jeaneth LIZARRAGA/JONNY Allergies lorazepam (LORAZEPAM) Allergy (Severe, Verified 01/05/25 10:29) DELIRIUM celecoxib (From Celebrex) Allergy (Intermediate, Verified 01/05/25 10:29) ITCHING tramadol (TRAMADOL) Allergy (Intermediate, Verified 01/05/25 10:29) ITCHING zolpidem (Ambien) Allergy (Unknown, Verified 01/05/25 10:29) unknown HPI HPI O/V left ring finger contracture: Details: Brandie is a 74-year-old Chinese-speaking woman who returns for her left distal radius & distal ulna fracture. She reports having a fall on 11/08/24 while in the hospital, resulting in a left distal radius & distal ulna fracture, and a dislocation of her right ring finger PIP joint, which was reduced in ED. Her wrist was splinted in the ED. She was first seen here for this on 12/08/24 She says she is feeling better but still gets some pain in her left wrist. She has been wearing her Velcro splint. In regards to her left hand, she has a left ring finger flexion contracture, with her fingertip down to her palm, along with EDC tendon subluxation for her ring & middle fingers. She says this has been going on for ~1.5 years. She has multiple medical comorbidities. She has seropositive rheumatoid arthritis. It looks like Enbrel was discontinued last year and she is currently on Actemra She also has hepatitis-C, history of [place], diabetes, fibromyalgia anxiety and depression as well as other medical problems. Please see her chart for additional information is necessary. She is now residing at home with a BUILDING CONSTRUCTION TEACHER who is here today with her.. ON LICENSE OF [facility] Medical History Heart palpitations Hypoglycemia due to insulin Elevated parathyroid hormone Osteoporosis Hyperlipidemia (04/21/1959) Depressive disorder (04/21/1959) Nutritional anemia (04/21/1959) Shortness of breath Hypothyroidism (04/21/1959) Anemia Chronic gastritis NSTEMI (non-ST elevated myocardial infarction) Recurrent falls (12/04/11) Iron deficiency anemia (04/21/1959) Fibromyositis (04/21/1959) Eczema (04/21/1959) High risk medication use Hepatitis C antibody positive in blood Screening for osteoporosis Screening for viral disease Joint swelling Overweight (BMI 25.0-29.9) Neck pain Swelling of knee joint, right Intra-abdominal abscess Diabetes Elevated liver function tests Intestinal malabsorption following gastrectomy Obesity (BMI 30-39.9) 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 Hypertension Cholecystitis Hyperlipidemia, unspecified Essential hypertension Atherosclerotic cardiovascular disease Fibromyalgia Folliculitis Anxiety Depression History of myocardial infarction Diabetes type 1, uncontrolled 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 Mother CVA (cerebral vascular accident) Sister Hypertension Brother Hypertension Liver cancer Social History Household Members: None Housing: Apartment Are you a primary interior plant caretaker to a significant other at home: No Do you presently have visiting nurse or other home services: Yes Unable to assess alcohol history related to: Unable to respond Alcohol intake: never Patient Tobacco Use Status: Never used Tobacco Advance Directives Date on File: 09/17/23 service: No Current occupational status: disabled Current occupation: right hand dominant Physical Exam Vital Signs: BMI result Body Mass Index 30.7 Const General: no acute distress and alert Orientation/consciousness: patient oriented x3 Neuro General: patient oriented x3 Extrem Other: Evaluation of Left Upper Extremity: The patient is alert, oriented, and in no acute distress In regards to the left upper extremity: The fingers of the left hand are noted to be ulnar deviated. Her fingers are held clasped into a fist. It appears that she keeps her left hand held in a fist most of the time as she had difficulty extending her fingers. She only seen able to actively extend her fingers perhaps to 45 degrees of flexion, with ulnar deviation. I passively brought the fingers out into extension and worked on some stretching exercises, but the fingers were still had in at least 20 degrees flexion. The left ring finger remained flexed. Crepitus and catching over the A1 deirdre noted when the ring finger was manually extended She appears to have ulnar subluxation of both the middle and ring finger EDC tendons. The EDC tendons to the index and small fingers appear to be well aligned at present She no longer has any tenderness to palpation at the distal radius or distal ulna. Full pronation Supination to ~ 60 degrees with some mild pain In regards to her right hand: She is able to make a fist and extend all her digits The ring finger PIP joint is stable on exam and has full range of motion. This has recovered nicely. Radiographs: 3 views of the left wrist were taken and viewed by me today in clinic. They show a comminuted intra-articular distal radius fracture with ~40 degrees apex volar angulation and a minimally displaced distal ulna fracture with evidence of interval bony healing Psych Appearance: grossly normal Affect: normal affect Attitude: cooperative Office Procedures AMB Fracture Care Details: No fracture, injection Fracture Billing Code: Fracture Billing Code Assessment & Plan Assessment & Plan (1) Distal radius fracture, left: Code(s): S52.502A - Unspecified fracture of the lower end of left radius, initial encounter for closed fracture Category: Medical (2) Closed traumatic dislocation of proximal interphalangeal (PIP) joint of right ring finger: Code(s): S63.284A - Dislocation of proximal interphalangeal joint of right ring finger, initial encounter Category: Medical (3) Nontraumatic subluxation of extensor tendon at metacarpophalangeal joint of left hand: Code(s): M66.242 - Spontaneous rupture of extensor tendons, left hand Category: Medical (4) Seropositive rheumatoid arthritis: Comment: +RF -ve CCP dx 02/10 Enbrel 02/2023 partially effective DC 09/2023 Actemra 10/2023 effective Code(s): M05.9 - Rheumatoid arthritis with rheumatoid factor, unspecified Category: Medical (5) Nontraumatic subluxation of extensor tendon at metacarpophalangeal joint of left hand: Code(s): M66.242 - Spontaneous rupture of extensor tendons, left hand Category: Medical (6) Diabetes type 1, uncontrolled: Comment: Doses of Tresiba over 19 units cause am lows! Code(s): E10.65 - Type 1 diabetes mellitus with hyperglycemia Category: Medical Qualifiers: Coma presence: without coma Glycemic state: with hypoglycemia Qualified Code(s): E10.649 - Type 1 diabetes mellitus with hypoglycemia without coma Plan Assessment and plan: 1. Left distal radius fracture, comminuted intra-articular From a fall, DOI: 11/08/24 Splinted in ED same day First seen here in clinic: 12/08/24 2. Left distal ulna fracture, minimally displaced From a fall, DOI: 11/08/24 Splinted in ED same day First seen here in clinic: 12/08/24 3. Right ring finger PIP joint dislocation, S/P reduction DOI: 11/08/24, Reduced in ED same day With a small healing fracture of the proximal phalanx PIP joint level, stable on exam First seen here in clinic: 12/08/24 I educated her about these conditions Due to these injuries she was not able to be seen by OT hand therapy to have her previous custom splint made for her left ring finger She will discontinue her velcro wrist splint at this time. She may still wear this out of the house for he next 2 weeks I discussed activity modification, she is to use her hand for lightweight activities and slowly increase as tolerated. She should also avoid any heavy impact activities, falls, or sports activities for the next 2-4 weeks She should work on gentle finger & wrist ROM exercises at home, particularly supination With regards to the right ring finger dislocation, she should continue to work on gentle range of motion exercises and continue with all activities as tolerated. She will follow up in 2-3 months for a ROM check, no X-rays 4. Rheumatoid arthritis 5. Left ring finger EDC tendon subluxation/dislocation Related to ruptured radial sagittal band and RA 6. Left ring finger possible trigger finger Educated her about this condition We briefly discussed operative and non operative treatment options and I recommended a steroid injection. She wished to proceed. Injection #1: The risks and benefits of a steroid injection including but not limited to risk of damage to blood vessels, nerves, tendons, infection, skin bleaching, failure to improve symptoms, increased pain, and possible need for further injections or other intervention were discussed with the patient and the patient wishes to proceed with the steroid injection. Once consent was obtained, I sterilely prepped the area over the A1 deirdre of the flexor tendon sheath of the Left ring finger. I then injected the flexor tendon sheath with a combination of 1 mL of dexamethasone (4mg/ml), and 1% lidocaine. The patient tolerated the procedure well with no complications. 7. Left middle finger EDC tendon subluxation Related to ruptured radial sagittal band and RA 8. Left ring finger flexion contracture/tightness secondary to above conditions. At the MCP joint I educated the patient about this condition She will continue with some OT hand therapy. In the future she may benefit from a custom thermoplastic splint that will hold the left middle and ring finger MCP joints in extension and in proper alignment For now, we need to allow her distal radius fracture to heal, and for her to recover normal use of her hands.. In the future I may again order OT hand therapy to have a custom thermoplastic splint that will hold the left middle and ring finger MCP joints in extension and in proper alignment made for her to wear. we will talk about this in more detail when she has recovered from her current fracture and has returned to more normal activities. Once the tightness is improved, we might be able to proceed with an operative realignment procedure of the EDC tendons to the left middle and ring fingers.? She understands that she would need to be in a cast and/or orthosis for at least 6-8 weeks afterwards. We would also need to make sure her diabetes is well controlled, and talk with Rheumatology about when to stop her Actemra.? She would need to be off the Actemra until she has good healing. Scribed for Rose Aggarwal MD by Joni Santos, medical dir, on 01/05/25 at 11:25 AM, EST. Coding Level of Care Code Est Pt Level 4 (71241) Diagnoses Distal radius fracture, left S52.502A Closed traumatic dislocation of proximal interphalangeal (PIP) joint of right ring finger S63.284A Nontraumatic subluxation of extensor tendon at metacarpophalangeal joint of left hand M66.242 Seropositive rheumatoid arthritis M05.9 Uncontrolled type 1 diabetes mellitus with hypoglycemia without coma E10.649 Coma presence: without coma Glycemic state: with hypoglycemia CPT Codes Fracture Care - Fracture Billing Code: Fracture Billing Code ([id number])
--- OUTSIDE RECORDS SUMMARY | 2025-01-05 11:59 | XMS_ITS | Encounter Summary ---
Author Organization [employer] Address [address] [facility] 7t [place] [address] Care Team Providers Care Group Social Worker Name Role Phone Pascual Daly MD Primary Care Provide r Fani Heck PharmD Unavailable [phone] Dasia Waters PharmD Unavailable [phone] Reason for Visit * Reason Comments Med Refill Encounter Details Date Type Department Care Team ([facility] st Contact Info) Description 03/27/2023 Refill [facility] CHC MED & PEDS [address] [place], [place] [phone] Titi Gray FNP Major depressive disorder with [...] [facility] [address] [place] [address] Dasia Waters, PharmD 230 [place] [address] 01/20/2025 10:30 AM EDT Clinical Support [facility] CHC MED & PEDS [address] [place] [address] Amanda Fernández, RN [address] [place] [address] 01/26/2025 9:00 AM EDT Office Visit [facility] ADULT DENTAL [address] [place] [address] Christian Winchester DDS [address] [place] [address] 02/17/2025 10:15 AM EDT Office Visit [facility] ADULT DENTAL [address] [place] [address] Gabriela Gaitan [address] [place] [address] documented as of this encounter Goals Goal [...] as of this encounter Care Teams Group Social Worker Relationship Specialty Start Date End Date Pascual Daly MD [address] [place] [address] PCP - General Internal Medicine 02/22/14 Fani Heck, PharmD [address] [place] [address] Pharmacist Internal Medicine 12/16/22 08/15/24 Dasia Waters PharmD [address] [place] [phone] Pharmacist Internal Medicine 08/16/24 Iker VNA 12/18/24 documented as of this encounter
--- OUTSIDE RECORDS SUMMARY | 2025-01-05 12:00 | XMS_ITS | Encounter Summary ---
Author Organization [employer] Address [address] [facility] 7t [place] [address] Care Team Providers Care Guest Services Associate Name Role Phone Pascual Daly MD Primary Care Provide r Fani Heck PharmD Unavailable [phone] Dasia Waters PharmD Unavailable [phone] Reason for Visit * Reason Comments Med Refill Encounter Details Date Type Department Care Team (Late Contact Info) Description 10/02/2022 Refill [facility] MEDICINE [address] [place], [place] [phone] Titi Gray FNP Major depressive disorder with [...] Description 01/17/2025 10:30 AM EDT Medication Management [facility] MEDICINE [address] [place], [place] [phone] Dasia Waters PharmD [address] [place], [place] [phone] 01/20/2025 10:30 AM EDT Clinical Support [facility] CHC MED & PEDS [address] [place], [place] [phone] Amanda Fernández, RN [address] [place], [place] 01/26/2025 9:00 AM EDT Office Visit [facility] ADULT DENTAL [address] [place] [address] Christian Winchester DDS [address] [place] [address] 02/17/2025 10:15 AM EDT Office Visit [facility] ADULT DENTAL [address] [place] [address] Gabriela Gaitan [address] [place] [address] documented as of this encounter Goals Goal [...] documented as of this encounter Care Teams Guest Services Associate Relationship Specialty Start Date End Date Pascual Daly MD [address] [place] [address] PCP - General Internal Medicine 02/22/14 Fani Heck, PharmD [address] [place] [address] Pharmacist Internal Medicine 12/16/22 08/15/24 Dasia Waters, PharmD [address] [place] [address] Pharmacist Internal Medicine 08/16/24 Iker CORDERO 12/18/24 documented as of this encounter
--- OUTSIDE RECORDS SUMMARY | 2025-01-05 12:00 | XMS_ITS | Encounter Summary ---
Author Organization [employer] Address [address] [facility] 7t [place] [address] Care Team Providers Care Bevel Mill Operator Name Role Phone Pascual Daly MD Primary Care Provide r Fani Heck PharmD Unavailable [phone] Dasia Waters PharmD Unavailable [phone] Encounter Details Date Type Department Care Team (Late st Contact Info) Description 09/25/2023 Telephone [facility] MEDICINE [address] [place] [address] Pascual Daly MD [address] [place] [address] Social History Tobacco Use Types Packs/Day Years [...] Description 01/17/2025 10:30 AM EDT Medication Management [facility] MEDICINE [address] [place] [address] Dasia Waters, PharmD [address] [place] [address] 01/20/2025 10:30 AM EDT Clinical Support [facility] CHC MED & PEDS [address] [place] [address] Amanda Fernández, RN 505 [place] [address] 01/26/2025 9:00 AM EDT Office Visit [facility] ADULT DENTAL [address] [place] [address] Christian Winchester DDS [address] [place] [address] 02/17/2025 10:15 AM EDT Office Visit [facility] ADULT DENTAL [address] [place] [address] Gabriela Gaitan [address] [place] [address] documented as of this encounter Goals Goal Patient Goal Type Associated Problems Recent Progress Patient-Stated? Author Blood Pressure < 140/90 Blood Pressure 126/59( 025 9:28 AM EDT) No Fani Heck, Woody documented as of this encounter Visit Diagnoses Diagnosis Type 2 diabetes mellitus without complication, with long-term current use of insulin ([facility]) documented in this encounter Additional Health Concerns Assessment Noted Time PHQ-9 Depression Total Score: 11 024 10:24 AM EST documented as of this encounter Care Teams Bevel Mill Operator Relationship Specialty Start Date End Date Pascual Daly MD [address] [place] [address] PCP - General Internal Medicine 02/22/14 Fani Heck, KristiD [address] [place] [address] Pharmacist Internal Medicine 12/16/22 08/15/24 Dasia Waters PharmD [address] [place] [address] Pharmacist Internal Medicine 08/16/24 Iker CORDERO 12/18/24 documented as of this encounter
--- OUTSIDE RECORDS SUMMARY | 2025-01-05 12:00 | XMS_ITS | Encounter Summary ---
Author Organization [employer] Address [address] [facility] 7t [place] [address] Care Team Providers Care Tailings Dam Pumper Name Role Phone Pascual Daly MD Primary Care Provide r Dasia Waters PharmD Unavailable [phone] Reason for Visit * Reason Onset Date Comments Med Refill 09/30/2024 Encounter Details Date Type Department Care Team ([facility] st Contact Info) Description 09/30/2024 Telephone [facility] MEDICINE [address] [place] [address] Pascual Daly MD [address] [place] [address] Med Refill Social History Tobacco Use Types [...] immediate release tablet To be sent to: [facility] documented in this encounter Plan of Treatment Upcoming Encounters Date Type Department Care Team (Late st Contact Info) Description 01/17/2025 10:30 AM EDT Medication Management [facility] MEDICINE [address] [place] [address] Dasia Waters, PharmD [address] [place] [address] 01/20/2025 10:30 AM EDT Clinical Support [facility] CHC MED & PEDS [address] [place] [address] Amanda Fernández, RN [address] [place] [address] 01/26/2025 9:00 AM EDT Office Visit [facility] ADULT DENTAL [address] [place], [place] [phone] Christian Winchester DDS [address] [place], [place] [phone] 02/17/2025 10:15 AM EDT Office Visit [facility] ADULT DENTAL [address] [place], [place] [phone] Gabriela Gaitan [address] [place], [place] [phone] documented as of this encounter Goals Goal [...] documented as of this encounter Care Teams Tailings Dam Pumper Relationship Specialty Start Date End Date aPscual Daly MD [address] [place], [place] [phone] PCP - General Internal Medicine 02/22/14 Dasia Waters PharmD [address] [place] [phone] Pharmacist Internal Medicine 08/16/24 Iker MARCUSA 12/18/24 documented as of this encounter
--- OUTSIDE RECORDS SUMMARY | 2025-01-05 12:00 | XMS_ITS | Encounter Summary ---
Author Organization [employer] Address [address] 7t [place] [address] Care Team Providers Care Rehabilitation Liaison Name Role Phone Pascual Daly MD Primary Care Provide r Fani Heck PharmD Unavailable + Dasia Waters PharmD Unavailable [phone] Encounter Details Date Type Department Care Team (Late st Contact Info) Description 03/05/2024 Refill [facility] MED[facility]INE [address] [place] [address] Jefry Chun Benign hypertension; Type 2 diabetes mellitus without complication, with long-term current use of insulin ([facility]) Social History Tobacco Use Types Packs/Day Years [...] [facility] [address] [place] [address] Dasia Waters, KristiD 230 [place] [address] 01/20/2025 10:30 AM EDT Clinical Support [facility] MED & PEDS 505 [place] [address] Amanda Fernández, RN 505 [place] [address] 01/26/2025 9:00 AM EDT Office Visit [facility] ADULT DENTAL 230 [place] [address] Christian Winchester DDS [address] [place] [address] 02/17/2025 10:15 AM EDT Office Visit [facility] ADULT DENTAL [address] [place] [address] Gabriela Gaitan [address] [place] [address] documented as of this encounter Goals Goal Patient Goal Type Associated Problems Recent Progress Patient-Stated? Author Blood Pressure < 140/90 Blood Pressure 126/59( 025 9:28 AM EDT) No Fani Heck, PharmD documented as of this encounter Visit Diagnoses Diagnosis Benign hypertension Essential hypertension, benign Type 2 diabetes mellitus without complication, with long-term current use of insulin ([facility]) documented in this encounter Additional Health Concerns Assessment Noted Time PHQ-9 Depression Total Score: 9 01/29/20 24 11:00 AM EDT documented as of this encounter Care Teams Rehabilitation Liaison Relationship Specialty Start Date End Date Pascual Daly MD [address] [place] [address] PCP - General Internal Medicine 02/22/14 Fani Heck, PharmD [address] [place] [address] Pharmacist Internal Medicine 12/16/22 08/15/24 Dasia Waters PharmD [address] [place] [address] Pharmacist Internal Medicine 08/16/24 Iker MARCUSA 12/18/24 documented as of this encounter
--- OUTSIDE RECORDS SUMMARY | 2025-01-05 12:00 | XMS_ITS | Encounter Summary ---
Author Organization [employer] Address [address] [facility] 7t [place] [address] Care Team Providers Care Wine Cellar Worker Name Role Phone Pascual Daly MD Primary Care Provide r Dasia Waters PharmD Unavailable [phone] Reason for Visit * Reason Onset Date Comments Med Refill 08/31/2024 Encounter Details Date Type Department Care Team ([facility] st Contact Info) Description 08/31/2024 Telephone [facility] MEDICINE [address] [place] [address] Pascual Daly MD 230 [place] [address] Med Refill Social History Tobacco Use Types [...] immediate release tablet To be sent to: [facility] documented in this encounter Plan of Treatment Upcoming Encounters Date Type Department Care Team (Late st Contact Info) Description 01/17/2025 10:30 AM EDT Medication Management [facility] MEDICINE [address] [place] [address] Dasia Waters, PharmD 230 [place] [address] 01/20/2025 10:30 AM EDT Clinical Support [facility] CH[facility] MED & PEDS 505 [place] [address] Amanda Fernández, RN 505 [place] [address] 01/26/2025 9:00 AM EDT Office Visit [facility] ADULT DENTAL 230 [place], [place] [phone] Christian Winchester DDS 230 [place], [place] [phone] 02/17/2025 10:15 AM EDT Office Visit [facility] ADULT DENTAL [address] [place], [place] [phone] Gabriela Gaitan 230 [place], [place] [phone] documented as of this encounter Goals Goal [...] as of this encounter Care Teams Wine Cellar Worker Relationship Specialty Start Date End Date Pascual Daly MD 230 [place], [place] [phone] PCP - General Internal Medicine 02/22/14 Dasia Waters PharmD [address] [place] [address] [phone] Pharmacist Internal Medicine 08/16/24 Iker MARCUSA 12/18/24 documented as of this encounter
--- OUTSIDE RECORDS SUMMARY | 2025-01-05 12:00 | XMS_ITS | Encounter Summary ---
Author Organization [employer] Address [address] [facility] 7t [place] [address] Care Team Providers Care Shoe Maker Name Role Phone Pascual Daly MD Primary Care Provide r Fani Heck PharmD Unavailable [phone] Dasia Waters PharmD Unavailable [phone] Encounter Details Date Type Department Care Team (Late st Contact Info) Description 09/25/2023 Telephone [facility] MEDICINE [address] [place] [address] Pascual Daly MD 230 [place] [address] Social History Tobacco Use Types Packs/Day Years [...] Description 01/17/2025 10:30 AM EDT Medication Management [facility] MEDICINE 230 [place] [address] Dasia Waters, PharmD 230 [place] [address] 01/20/2025 10:30 AM EDT Clinical Support [facility] CHC MED & PEDS 505 [place] [address] Amanda Fernández, RN 505 [place] [address] 01/26/2025 9:00 AM EDT Office Visit [facility] ADULT DENTAL 230 [place] [address] Christian Winchester DDS 230 [place] [address] 02/17/2025 10:15 AM EDT Office Visit [facility] ADULT DENTAL 230 [place] [address] Gabriela Gaitan 230 [place] [address] documented as of this encounter Goals Goal [...] documented as of this encounter Care Teams Shoe Maker Relationship Specialty Start Date End Date Pascual Daly MD 230 [place] [address] PCP - General Internal Medicine 02/22/14 Fani Heck, PharmD [address] [place] [address] Pharmacist Internal Medicine 12/16/22 08/15/24 Dasia Waters PharmD 230 [place] [address] Pharmacist Internal Medicine 08/16/24 Iker VNA 12/18/24 documented as of this encounter
--- OUTSIDE RECORDS SUMMARY | 2025-01-05 12:00 | XMS_ITS | Encounter Summary ---
Author Organization [employer] Address [address] [facility] 7t [place] [address] Care Team Providers Care Assistant Professor Of Music Name Role Phone Pascual Daly MD Primary Care Provide r Fani Heck PharmD Unavailable [phone] Dasia Waters PharmD Unavailable [phone] Reason for Visit * Reason Onset Date Comments Appointment Request 09/03/2022 Encounter Details Date Type Department Care Team ([facility] st Contact Info) Description 09/03/2022 Telephone [facility] MEDICINE 230 [place], [place] [phone] Pascual Daly MD 230 [place], [place] [phone] Appointment Request Social History Tobacco Use Types [...] Description 01/17/2025 10:30 AM EDT Medication Management [facility] MEDICINE 230 [place] [address] Dasia Waters PharmD 230 [place] [address] 01/20/2025 10:30 AM EDT Clinical Support [facility] CHC MED & PEDS 505 [place] [address] Amanda Fernández, RN 505 [place] [address] 01/26/2025 9:00 AM EDT Office Visit [facility] ADULT DENTAL 230 [place] [address] Christian Winchester DDS [address] [place] [address] 02/17/2025 10:15 AM EDT Office Visit [facility] ADULT DENTAL [address] [place] [address] Gabriela Gaitan 230 [place] [address] documented as of this encounter Goals Goal [...] documented as of this encounter Care Teams Assistant Professor Of Music Relationship Specialty Start Date End Date Pascual Daly MD 230 [place] [address] PCP - General Internal Medicine 02/22/14 Fani Heck, KristiD [address] [place] [address] Pharmacist Internal Medicine 12/16/22 08/15/24 Dasia Waters PharmD [address] [place] [address] Pharmacist Internal Medicine 08/16/24 Iker MARCUSA 12/18/24 documented as of this encounter
--- OUTSIDE RECORDS SUMMARY | 2025-01-05 12:00 | XMS_ITS | Encounter Summary ---
Author Organization [employer] Address [address] [facility] 7t [place] [address] Care Team Providers Care Telephone Installer Name Role Phone Pascual Daly MD Primary Care Provide r Fani Heck PharmD Unavailable [phone] Dasia Waters PharmD Unavailable [phone] Reason for Visit * Reason Comments Med Refill Encounter Details Date Type Department Care Team (Late st Contact Info) Description 07/20/2023 Refill [facility] MEDICINE 230 [place] [address] Titi Gray FNP Major depressive disorder with [...] Description 01/17/2025 10:30 AM EDT Medication Management [facility] MEDICINE [address] [place] [address] Dasia Waters, KristiD 230 [place] [address] 01/20/2025 10:30 AM EDT Clinical Support [facility] CHC MED & PEDS 505 [place] [address] Amanda Fernández, RN 505 [place] [address] 01/26/2025 9:00 AM EDT Office Visit [facility] ADULT DENTAL 230 [place] [address] Christian Winchester DDS 230 [place] [address] 02/17/2025 10:15 AM EDT Office Visit [facility] ADULT DENTAL [address] [place] [address] Gabriela Gaitan 230 [place] [address] documented as of this encounter Goals Goal [...] documented as of this encounter Care Teams Telephone Installer Relationship Specialty Start Date End Date Pascual Daly MD 230 [place] [address] PCP - General Internal Medicine 02/22/14 Fani Heck, PharmD 230 [place] [address] Pharmacist Internal Medicine 12/16/22 08/15/24 Dasia Waters PharmD 230 [place] [address] Pharmacist Internal Medicine 08/16/24 Iker VNA 12/18/24 documented as of this encounter
--- OUTSIDE RECORDS SUMMARY | 2025-01-05 12:00 | XMS_ITS | Clinical Summary ---
Author Organization [address] [facility] Address 175 [place] [address] Phone Care Team Providers Care Ping Pong Table Assembler Name Role Phone Pascual Darnell MD Primary Care Provi chio Allergies Active Allergy Reactions Criticality Noted Date Comments Clonazepam 09/02/2024 Medications No known medications Encounters Date Type Department Care Team Description 11/23/[address] [facility] [address] [place] [address] Vero Mike MD Type 1 diabetes mellitus with hyperglycemia (CMS/HCC V24, CMS/[facility] V28); Old myocardial infarction; Essential (primary) hypertension; Vitamin D deficiency, unspecified 11/16/[address] [facility] [address] [place] [address] Vero Mike MD Altered mental [...] AM EST Office Visit [facility] [place] 250 [address] [facility] 250 [place] [address] Luciano Smith, DPM [address] [address] Health Maintenance Due Date Last [...] EDT Type 1 diabetes mellitus with hyperglycemia ([facility] V24, [facility] V28) Old myocardial infarction Essential (primary) hypertension [...] LAB CHEMISTRY METHOD 11/24/2024 1:30 PM EDT [facility] Blood Venous blood specimen / Unknown Venipuncture / Unknown 11/24/2024 6:16 AM EDT 11/24/2024 10:32 AM EDT us Vero Mike MD LAB BLOOD ORDERABLES Final Resul t [facility] [address] [place] [address], * (ABNORMAL) Complete blood count (11/24/2024 6:16 AM EDT) WBC 8.5 4.8 - 10.8 K/[facility] LAB HEMETOLOGY METHOD 11/24/2024 11:00 AM EDT [facility] RBC 3.80 3.80 - 4.80 M/mcL LAB HEMETOLOGY METHOD 11/24/2024 11:00 AM EDT [facility] Hemoglobin 10.4(L) 11.5 - 16.0 g/dL LAB HEMETOLOGY METHOD 11/24/2024 11:00 AM [facility] Hematocrit 32.5(L) 35.0 - 47.0 % LAB HEMETOLOGY METHOD 11/24/2024 11:00 AM [facility] MCV 86.2 79.0 - 98.0 FL LAB HEMETOLOGY METHOD 11/24/2024 11:00 AM [facility] MCH 27.6 27.0 - 32.0 pcg LAB HEMETOLOGY METHOD 11/24/2024 11:00 AM [facility] MCHC 32.0 32.0 - 37.0 g/dL LAB HEMETOLOGY METHOD 11/24/2024 11:00 AM [facility] RDW 13.1 11.0 - 15.0 % LAB HEMETOLOGY METHOD 11/24/2024 11:00 AM [facility] Platelets 345 130 - 400 K/mcL LAB HEMETOLOGY METHOD 11/24/2024 11:00 AM [facility] MPV 10.1 7.0 - 11.0 FL LAB HEMETOLOGY METHOD 11/24/2024 11:00 AM [facility] NRBC 0.0 <1.0 % LAB HEMETOLOGY METHOD 11/24/2024 11:00 AM [facility] NRBC Absolute 0.00 <0.10 K/mcL LAB HEMETOLOGY METHOD 11/24/2024 11:00 AM [facility] Blood Venous blood specimen / Unknown Venipuncture / Unknown 11/24/2024 6:16 AM EDT 11/24/2024 10:24 AM EDT us Vero Mike MD LAB BLOOD ORDERABLES Final Resul t [facility] [address] [place] [address], [place] [phone] * Thyroid stimulating hormone (11/24/2024 6:16 AM EDT) Pathologist [facility] TSH 1.63 0.40 - 4.00 mcIU/mL LAB CHEMISTRY METHOD 11/24/2024 1:30 PM EDT [facility] Blood Venous blood specimen / Unknown Venipuncture / Unknown 11/24/2024 6:16 AM EDT 11/24/2024 10:32 AM EDT us Vero Mike MD LAB BLOOD ORDERABLES Final Resul t Performing Organization Address [facility]/ZIP Co de Phone Number [facility] [address] [place] [address], [place] [phone] * (ABNORMAL) Hemoglobin A1c (11/24/2024 6:16 AM EDT) [facility] Hemoglobin A1C 8.9(H) <6.5 % LAB CHEMISTRY METHOD 11/24/2024 12:29 PM EDT [facility] Mean Bld Glu Estim. 209 mg/dL LAB CHEMISTRY METHOD 11/24/2024 12:29 PM EDT [facility] Blood Venous blood specimen / Unknown Venipuncture / Unknown 11/24/2024 6:16 AM EDT 11/24/2024 10:24 AM EDT us Vreo Mike MD LAB BLOOD ORDERABLES Final Resul t Performing Organization Address City/[facility]/ZIP Co de Phone Number [facility] [address] [place] [address], [place] [phone] * (ABNORMAL) Vitamin B12 (11/24/2024 6:16 AM EDT) [facility] Vitamin B-12 979(H) 250 - 900 pcg/mL LAB CHEMISTRY METHOD 11/24/2024 11:58 AM [facility] Blood Venous blood specimen / Unknown Venipuncture / Unknown 11/24/2024 6:16 AM EDT 11/24/2024 10:32 AM EDT us Vero Mike MD LAB BLOOD ORDERABLES Final Resul t [facility] [address] [place] [address], [place] [phone] * (ABNORMAL) Comprehensive metabolic panel (11/24/2024 6:16 AM EDT) Sodium 138 133 - 145 mmol/L LAB CHEMISTRY METHOD 11/24/2024 11:35 AM [facility] Potassium 4.5 3.5 - 5.5 mmol/L LAB CHEMISTRY METHOD 11/24/2024 11:35 AM [facility] Chloride 104 96 - 110 mmol/L LAB CHEMISTRY METHOD 11/24/2024 11:35 AM [facility] CO2 28 21 - 32 mmol/L LAB CHEMISTRY METHOD 11/24/2024 11:35 AM [facility] Anion Gap 6 3 - 11 LAB CHEMISTRY METHOD 11/24/2024 11:35 AM [facility] Glucose 77 70 - 100 mg/dL LAB CHEMISTRY METHOD 11/24/2024 11:35 AM [facility] BUN 21 5 - 25 mg/dL LAB CHEMISTRY METHOD 11/24/2024 11:35 AM [facility] Creatinine 0.96 0.50 - 1.10 mg/dL LAB CHEMISTRY METHOD 11/24/2024 11:35 AM [facility] eGFR 62 >=60 mL/min/1. 73m2 LAB CHEMISTRY METHOD 11/24/2024 11:35 AM [facility] Comment:Calculation based on the Chronic Kidney Disease Epidemiology Collaboration (CKD-EPI) equation refit without adjustment for race. BUN/Creatinine Ratio 21.9 LAB CHEMISTRY METHOD 11/24/2024 11:35 AM [facility] Calcium 9.2 8.5 - 10.5 mg/dL LAB CHEMISTRY METHOD 11/24/2024 11:35 AM [facility] AST (SGOT) 18 10 - 42 unit/L LAB CHEMISTRY METHOD 11/24/2024 11:35 AM [facility] ALT (SGPT) 26 10 - 60 unit/L LAB CHEMISTRY METHOD 11/24/2024 11:35 AM [facility] Alkaline Phosphatase 99 42 - 121 unit/L LAB CHEMISTRY METHOD 11/24/2024 11:35 AM [facility] Total Protein 5.6(L) 6.0 - 8.0 g/dL LAB CHEMISTRY METHOD 11/24/2024 11:35 AM [facility] Albumin 3.3 3.2 - 5.0 g/dL LAB CHEMISTRY METHOD 11/24/2024 11:35 AM [facility] Total Bilirubin 0.3 0.0 - 1.4 mg/dL LAB CHEMISTRY METHOD 11/24/2024 11:35 AM [facility] Blood Venous blood specimen / Unknown Venipuncture / Unknown 11/24/2024 6:16 AM EDT 11/24/2024 10:32 AM EDT us Vero Mike MD LAB BLOOD ORDERABLES Final Resul t [facility] [address] [place] [address], * (ABNORMAL) Urinalysis with reflex microscopic (11/15/2024 12:20 PM EDT) Specific [place] Urine 1.012 1.003 - 1.030 LAB URINALYSIS - AUTOMATED METHOD 11/16/2024 9:53 AM [facility] pH, Urine 6.0 5.0 - 8.0 pH LAB URINALYSIS - AUTOMATED METHOD 11/16/2024 9:53 AM [facility] Leukocytes, Urine Small(A) Negative LAB URINALYSIS - AUTOMATED METHOD 11/16/2024 9:53 AM [facility] Nitrite, Urine Negative Negative LAB URINALYSIS - AUTOMATED METHOD 11/16/2024 9:53 AM [facility] Protein, Urine Negative <=Trace mg/dL LAB URINALYSIS - AUTOMATED METHOD 11/16/2024 9:53 AM [facility] Glucose, Urine 100(A) Negative mg/dL LAB URINALYSIS - AUTOMATED METHOD 11/16/2024 9:53 AM [facility] Ketones, Urine Negative Negative mg/dL LAB URINALYSIS - AUTOMATED METHOD 11/16/2024 9:53 AM [facility] Urobilinogen, Urine 0.2 0.2 - 1.0 mg/dL LAB URINALYSIS - AUTOMATED METHOD 11/16/2024 9:53 AM [facility] Bilirubin, Urine Negative Negative LAB URINALYSIS - AUTOMATED METHOD 11/16/2024 9:53 AM [facility] Blood, Urine Negative Negative LAB URINALYSIS - AUTOMATED METHOD 11/16/2024 9:53 AM [facility] RBC, Urine 1.7 0 - 4 /HPF LAB URINALYSIS - AUTOMATED METHOD 11/16/2024 9:53 AM [facility] WBC, Urine 4.4(H) 0 - 4 /HPF LAB URINALYSIS - AUTOMATED METHOD 11/16/2024 9:53 AM [facility] Squamous Epithelial, Urine 42 0 - 60 /LPF LAB URINALYSIS - AUTOMATED METHOD 11/16/2024 9:53 AM [facility] Bacteria, Urine Many(A) Negative /HPF LAB URINALYSIS - AUTOMATED METHOD 11/16/2024 9:53 AM EDT [facility] Hyaline Casts, Urine 1.2 0 - 3 /LPF LAB URINALYSIS - AUTOMATED METHOD 11/16/2024 9:53 AM EDT [facility] Urine Urine specimen obtained by clean catch procedure / Unknown Non-blood Collection / Unknown 11/15/2024 12:20 PM EDT 11/16/2024 9:33 AM EDT us Vero Mike MD LAB URINE ORDERABLES Final Resul t [facility] [address] [place] [address], [place] [phone] * (ABNORMAL) Culture urine (11/15/2024 12:20 PM EDT) Culture, Urine >=100,000 CFU/mL Klebsiella pneumoniae ssp pneumoniae(A) ANA 11/18/2024 10:57 AM EDT [facility] Comment: This is an edited [...] MICROBIOLOGY - GENERAL ORDER ELIU Final Result [facility] [address] [place] [address], [place] [phone] from Last 3 Months Insurance [employer] Member Subscriber Plan / Payer (Ef fective 2015-Present) Name:Brandie WILLIS Relation to Subscriber:Self Name:Brandie Santana Payer ID:[id number] Group ID:[id number] Type:Not on file Address: [place] [address] [place] [address] Care Teams Ping Pong Table Assembler Relationship Specialty Start Date End Date Pascual Darnell MD [address] [place] [address] PCP - General Internal Medicine 06/18/24
--- OUTSIDE RECORDS SUMMARY | 2025-01-05 12:00 | XMS_ITS | Encounter Summary ---
Author Organization [employer] Address 75 [facility] 7t [place] [address] Care Team Providers Care Finance Broker Name Role Phone Pascual Daly MD Primary Care Provide r Fani Heck PharmD Unavailable [phone] Dasia Waters PharmD Unavailable [phone] Encounter Details Date Type Department Care Team (Late Contact Info) Description 08/29/2022 Abstract [facility] MEDICINE [address] [place] [address] Pascual Daly MD 230 [place] [address] Social History Tobacco Use Types Packs/Day Years [...] 01/17/2025 10:30 AM EDT Medication Management [facility] MEDICINE [address] [place] [address] Dasia Waters, KristiD 230 [place] [address] 01/20/2025 10:30 AM EDT Clinical Support [facility] MED & PEDS 505 [place] [address] Amanda Fernández, RN 505 [place] [address] 01/26/2025 9:00 AM EDT Office Visit [facility] ADULT DENTAL 230 [place] [address] Christian Winchester DDS [address] [place] [address] 02/17/2025 10:15 AM EDT Office Visit [facility] ADULT DENTAL [address] [place] [address] Kandy, Gabriela [address] [place] [address] documented as of this encounter Goals Goal [...] documented as of this encounter Care Teams Finance Broker Relationship Specialty Start Date End Date Pascual Daly MD [address] [place] [address] PCP - General Internal Medicine 02/22/14 Fani Heck PharmD [address] [place] [address] Pharmacist Internal Medicine 12/16/22 08/15/24 Dasia Waters PharmD [address] [place] [address] Pharmacist Internal Medicine 08/16/24 [facility] documented as of this encounter
--- OUTSIDE RECORDS SUMMARY | 2025-01-05 12:00 | XMS_ITS | Encounter Summary ---
Author Organization [email or web address] Address 75 [facility] 7t [place] [address] Care Team Providers Care Silk Hanger Name Role Phone Pascual Daly MD Primary Care Provide r Fani Heck PharmD Unavailable [phone] Dasia Waters PharmD Unavailable [phone] Reason for Visit * Reason Comments Med Refill Encounter Details Date Type Department Care Team (Late st Contact Info) Description 08/26/2023 Refill [facility] [address] [place], [place] [phone] Momo Rizo MD 230 [place], [place] [phone] Benign hypertension Social History Tobacco Use Types [...] Medication Management [facility] MEDICINE [address] [place] [address] Dasia Waters, PharmD 230 [place] [address] 01/20/2025 10:30 AM EDT Clinical Support [facility] MED [facility] PEDS 505 [place] [address] Amanda Fernández, RN 505 [place] [address] 01/26/2025 9:00 AM EDT Office Visit [facility] ADULT DENTAL [address] [place] [address] Christian Winchester DDS [address] [place] [address] 02/17/2025 10:15 AM EDT Office Visit [facility] ADULT DENTAL [address] [place] [address] Gabriela Gaitan [address] [place] [address] documented as of this encounter Goals Goal [...] documented as of this encounter Care Teams Silk Hanger Relationship Specialty Start Date End Date Pascual Daly MD [address] [place] [address] PCP - General Internal Medicine 02/22/14 Fani Heck, PharmD [address] [place] [address] Pharmacist Internal Medicine 12/16/22 08/15/24 Dasia Waters PharmD [address] [place] [address] Pharmacist Internal Medicine 08/16/24 Iker MARCUSA 12/18/24 documented as of this encounter
--- OUTSIDE RECORDS SUMMARY | 2025-01-05 12:00 | XMS_ITS | Encounter Summary ---
Author Organization [employer] Address 75 [facility] 7t [place] [address] Care Team Providers Care International Organizer Name Role Phone Pascual Daly MD Primary Care Provide r Fani Heck PharmD Unavailable +1 Dasia Waters PharmD Unavailable [phone] Reason for Visit * Reason Comments Med Refill Encounter Details Date Type Department Care Team ([facility] st Contact Info) Description 09/26/2023 Refill [facility] MEDICINE [address] [place] [address] Pascual Daly MD [address] [place] [address] Social History Tobacco Use Types Packs/Day Years [...] Description 01/17/2025 10:30 AM EDT Medication Management [facility] MEDICINE [address] [place] [address] Dasia Waters, PharmD [address] [place] [address] 01/20/2025 10:30 AM EDT Clinical Support [facility] CHC MED & PEDS 505 [place] [address] Amanda Fernández, RN 505 [place] [address] 01/26/2025 9:00 AM EDT Office Visit [facility] ADULT DENTAL [address] [place] [address] Christian Winchester DDS 230 [place] [address] 02/17/2025 10:15 AM EDT Office Visit [facility] ADULT DENTAL [address] [place] [address] Gabriela Gaitan [address] [place] [address] documented as of this encounter Goals Goal [...] documented as of this encounter Care Teams International Organizer Relationship Specialty Start Date End Date Pasucal Daly MD [address] [place] [address] PCP - General Internal Medicine 02/22/14 Fani Heck, PharmD [address] [place] [address] Pharmacist Internal Medicine 12/16/22 08/15/24 Dasia Waters, KristiD [address] [place] [address] Pharmacist Internal Medicine 08/16/24 Iker MARCUSA 12/18/24 documented as of this encounter
--- OUTSIDE RECORDS SUMMARY | 2025-01-05 12:01 | XMS_ITS | Encounter Summary ---
Author Organization [employer] Address 75 [facility] 7t [place] [address] Care Team Providers Care Optometry Teacher Name Role Phone Pascual Daly MD Primary Care Provide r Fani Heck PharmD Unavailable +9 Dasia Waters PharmD Unavailable [phone] Reason for Visit * Reason Comments Med Refill Encounter Details Date Type Department Care Team (Late st Contact Info) Description 10/21/2023 Refill [facility] MEDICINE [address] [place] [address] Titi Gray FNP Major depressive disorder with [...] 10:30 AM EDT Medication Management [facility] MEDICINE [address] [place] [address] Dasia Waters, KristiD [address] [place] [address] 01/20/2025 10:30 AM EDT Clinical Support [facility] CHC MED & PEDS 505 [place] [address] Amanda Fernández, RN 505 [place] [address] 01/26/2025 9:00 AM EDT Office Visit [facility] ADULT DENTAL [address] [place] [address] Christian Winchester DDS [address] [place] [address] 02/17/2025 10:15 AM EDT Office Visit [facility] ADULT DENTAL [address] [place] [address] Gabriela Gaitan [address] [place] [address] documented as of this encounter Goals Goal [...] documented as of this encounter Care Teams Optometry Teacher Relationship Specialty Start Date End Date Pascual Daly MD [address] [place] [address] PCP - General Internal Medicine 02/22/14 Fani Heck, PharmD [address] [place] [address] Pharmacist Internal Medicine 12/16/22 08/15/24 Dasia Waters PharmD [address] [place] [address] Pharmacist Internal Medicine 08/16/24 [facility] 12/18/24 documented as of this encounter
--- OUTSIDE RECORDS SUMMARY | 2025-01-05 12:01 | XMS_ITS | Encounter Summary ---
Author Organization [employer] Address 75 [facility] 7t [place] [address] Care Team Providers Care Airplane Cabin Attendant Name Role Phone Pascual Daly MD Primary Care Provide r Fani Heck PharmD Unavailable + Dasia Waters PharmD Unavailable [phone] Encounter Details Date Type Department Care Team (Late st Contact Info) Description 07/01/2022 Abstract [facility] [address] [place] [address] Pacsual Daly MD [address] [place] [address] Social History Tobacco Use Types Packs/Day Years [...] down Not at all 07/04/2022 9:26 AM Siavn Dias [place] Trouble concentrating on things, such [...] Description 01/17/2025 10:30 AM EDT Medication Management [facility] MEDICINE 230 [place] [address] Dasia Waters, KristiD 230 [place] [address] 01/20/2025 10:30 AM EDT Clinical Support [facility] CHC MED & PEDS 505 [place] [address] Amanda Fernández, RN 505 [place] [address] 01/26/2025 9:00 AM EDT Office Visit [facility] ADULT DENTAL 230 [place] [address] Christian Winchester DDS 230 [place] [address] 02/17/2025 10:15 AM EDT Office Visit [facility] ADULT DENTAL 230 [place] [address] Gabriela Gaitan 230 [place] [address] documented as of this encounter Goals Goal [...] documented as of this encounter Care Teams Airplane Cabin Attendant Relationship Specialty Start Date End Date Pascual Daly MD 230 [place] [address] PCP - General Internal Medicine 02/22/14 Fani Heck, KristiD 230 [place] [address] Pharmacist Internal Medicine 12/16/22 08/15/24 Dasia Waters PharmD 230 [place] [address] Pharmacist Internal Medicine 08/16/24 [place] A 12/18/24 documented as of this encounter
--- OUTSIDE RECORDS SUMMARY | 2025-01-05 12:01 | XMS_ITS | Encounter Summary ---
Author Organization [employer] Address 75 [facility] 7t [place] [address] Care Team Providers Care Design Painter Name Role Phone Pascual Daly MD Primary Care Provide r Fani Heck PharmD Unavailable +9 Dasia Waters PharmD Unavailable [phone] Reason for Visit * Reason Onset Date Comments FYI 11/06/2023 Encounter Details Date Type Department Care Team ([facility] st Contact Info) Description 11/06/2023 Telephone [facility] MEDICINE 230 [place], [place] [phone] Pascual Daly MD 230 [place] [address] Social History Tobacco Use Types Packs/Day Years [...] - 11/06/2023 4:39 PM EDT Tc from [facility] Iker CORDERO PT informing pt has started services For PT 11/06/23 documented in this encounter Plan of Treatment Upcoming Encounters Date Type Department Care Team (Late st Contact Info) Description 01/17/2025 10:30 AM EDT Medication Management [facility] MEDICINE 230 [place] [address] Dasia Waters, PharmD 230 [place] [address] 01/20/2025 10:30 AM EDT Clinical Support [facility] CHC MED & PEDS 505 [place] [address] Amanda Fernández, RN 505 [place] [address] 01/26/2025 9:00 AM EDT Office Visit [facility] ADULT DENTAL 230 [place] [address] Christian Winchester DDS 230 [place] [address] 02/17/2025 10:15 AM EDT Office Visit [facility] [phone] Gabriela Gaitan 230 [place], [place] [phone] documented as of this encounter Goals Goal [...] documented as of this encounter Care Teams Design Painter Relationship Specialty Start Date End [place] [address] PCP - General Internal Medicine 02/22/14 Fani Heck, PharmD [address] [place], [place] [phone] Pharmacist Internal Medicine 12/16/22 08/15/24 Dasia Waters, [place] [address] Pharmacist Internal Medicine 08/16/24 [place] [facility] 12/18/24 documented as of this encounter
--- OUTSIDE RECORDS SUMMARY | 2025-01-05 12:01 | XMS_ITS | Encounter Summary ---
Author Organization [employer] Address 75 [facility] 7t [place] [address] Care Team Providers Care Real Estate Valuer Name Role Phone Pascual Daly MD Primary Care Provide r Fani Heck PharmD Unavailable + Dasia Waters PharmD Unavailable [phone] Reason for Visit * Reason Onset Date Comments FYI 12/11/2023 Durable Medical Equipment 12/11/2023 Encounter Details Date Type Department Care Team (Late st Contact Info) Description 12/11/2023 Telephone [facility] MEDICINE 230 [place], [place] [phone] Pascual Daly MD 230 [place], [place] [phone] FYI ; Durable Medical Equipment Social History [...] sent to [facility] which: [facility] bed Please fax over to [phone] documented in this encounter Plan of Treatment Upcoming Encounters Date Type Department Care Team ([facility] st Contact Info) Description 01/17/2025 10:30 AM EDT Medication Management [facility] MED[facility] [address] [place] [address] Dasia Waters, PharmD 230 [place] [address] 01/20/2025 10:30 AM EDT Clinical Support [facility] CHC MED & PEDS 505 [place] [address] Amanda Fernández, RN 505 [place] [address] 01/26/2025 9:00 AM EDT Office Visit [facility] ADULT DENTAL 230 [place] [address] Christian Winchester DDS [address] [place] [address] 02/17/2025 10:15 AM EDT Office Visit [facility] ADULT DENTAL [address] [place] [address] Gabriela Gaitan [address] [place] [address] documented as of this encounter Goals Goal [...] of this encounter Care Teams Real Estate Valuer Relationship Specialty Start Date End Date [place] [address] PCP - General Internal Medicine 02/22/14 Fani Heck, PharmD [facility] [place] [address] Pharmacist Internal Medicine 12/16/22 08/15/24 Dasia Waters, KristiD [facility] [place] [address] Pharmacist Internal Medicine 08/16/24 Iker MARCUSA 12/18/24 documented as of this encounter
--- OUTSIDE RECORDS SUMMARY | 2025-01-05 12:01 | XMS_ITS | Encounter Summary ---
Author Organization [email or web address] Address 75 [facility] 7t [place] [address] Care Team Providers Care Displayer Merchandise Name Role Phone Pascual Daly MD Primary Care Provide r Dasia Waters PharmD Unavailable [phone] Reason for Visit * Reason Onset Date Comments Durable Medical Equipment 12/22/2024 Encounter Details Date Type Department Care Team ([facility] st Contact Info) Description 12/22/2024 Telephone [facility] MEDICINE [address] [place] [address] Pascual Daly MD 230 [place] [address] Durable Medical Equipment Social History Tobacco Use [...] Miscellaneous Notes * Telephone Encounter - Linda Schimdt - 12/22/2024 4:09 PM EDT Please see [...] Description 01/17/2025 10:30 AM EDT Medication Management [facility] MEDICINE [address] [place] [address] Dasia Waters, PharmD 230 [place] [address] 01/20/2025 10:30 AM EDT Clinical Support [facility] CHC MED & PEDS 505 [place] [address] Amanda Fernández, RN 505 [place], [place] 01/26/2025 9:00 AM EDT Office Visit [facility] ADULT DENTAL [address] [place] [address] Christian Winchester DDS [address] [place] [address] 02/17/2025 10:15 AM EDT Office Visit [facility] ADULT DENTAL [address] [place] [address] Gabriela Gaitan [address] [place] [address] documented as of this encounter Goals Goal [...] documented as of this encounter Care Teams Displayer Merchandise Relationship Specialty Start Date End Date Pascual Daly MD [address] [place] [address] PCP - General Internal Medicine 02/22/14 Dasia Waters PharmD [address] [place] [address] Pharmacist Internal Medicine 08/16/24 Iker MARCUSA 12/18/24 documented as of this encounter
--- OUTSIDE RECORDS SUMMARY | 2025-01-05 12:01 | XMS_ITS | Encounter Summary ---
Author Organization [employer] Address 75 [facility] 7t [place] [address] Care Team Providers Care Loading Dock Hand Name Role Phone Pascual Daly MD Primary Care Provide r Fani Heck PharmD Unavailable +1 Dasia Waters PharmD Unavailable [phone] Reason for Visit * Reason Onset Date Comments Med Refill 10/11/2022 Encounter Details Date Type Department Care Team ([facility] st Contact Info) Description 10/11/2022 Telephone [facility] MEDICINE 230 [place], [place] [phone] Pascual Daly MD 230 [place], [place] [phone] Med Refill Social History Tobacco Use Types [...] Description 01/17/2025 10:30 AM EDT Medication Management [facility] MEDICINE [address] [place] [address] Dasia Waters, KristiD 230 [place] [address] 01/20/2025 10:30 AM EDT Clinical Support [facility] CHC MED & PEDS 505 [place] [address] Amanda Fernández, RN 505 [place] [address] 01/26/2025 9:00 AM EDT Office Visit [facility] ADULT DENTAL 230 [place] [address] Christian Winchester DDS [address] [place] [address] 02/17/2025 10:15 AM EDT Office Visit [facility] ADULT DENTAL [address] [place] [address] Gabriela Gaitan 230 [place] [address] documented as of this encounter Goals Goal [...] as of this encounter Care Teams Loading Dock Hand Relationship Specialty Start Date End Date Pascual Daly MD 230 [place] [address] PCP - General Internal Medicine 11/4/14 Fani Heck, KristiD 230 [place] [address] Pharmacist Internal Medicine 12/16/22 08/15/24 Dasia Waters PharmD [address] [place] [address] Pharmacist Internal Medicine 08/16/24 [place] A 12/18/24 documented as of this encounter
--- OUTSIDE RECORDS SUMMARY | 2025-01-05 12:01 | XMS_ITS | Encounter Summary ---
Author Organization [employer] Address 75 [facility] 7t [place] [address] Care Team Providers Care Spring Coverer Name Role Phone Pascual Daly MD Primary Care Provide r Fani Heck PharmD Unavailable [phone] Dasia Waters PharmD Unavailable [phone] Encounter Details Date Type Department Care Team (Late Contact Info) Description 05/29/2022 Abstract [facility] MEDICINE [address] [place] [address] Pascual Daly MD [address] [place] [address] Social History Tobacco Use Types Packs/Day Years [...] Description 01/17/2025 10:30 AM EDT Medication Management [facility] MEDICINE [address] [place] [address] Dasia Waters PharmD 230 [place] [address] 01/20/2025 10:30 AM EDT Clinical Support [facility] CHC MED & PEDS 505 [place] [address] Amanda Fernández, RN 505 [place] [address] 01/26/2025 9:00 AM EDT Office Visit [facility] ADULT DENTAL 230 [place] [address] Christian Winchester DDS 230 [place] [address] 02/17/2025 10:15 AM EDT Office Visit [facility] ADULT DENTAL [address] [place] [address] Kandy Gabriela 230 [place] [address] documented as of this encounter Goals Goal [...] documented as of this encounter Care Teams Spring Coverer Relationship Specialty Start Date End Date Pascual Daly MD [address] [place] [address] PCP - General Internal Medicine 02/22/14 Fani Heck, KristiD [address] [place] [address] Pharmacist Internal Medicine 12/16/22 08/15/24 Dasia Waters, KristiD [address] [place] [address] Pharmacist Internal Medicine 08/16/24 Iker A 12/18/24 documented as of this encounter
--- OUTSIDE RECORDS SUMMARY | 2025-01-05 12:01 | XMS_ITS | Encounter Summary ---
Author Organization [employer] Address 75 [facility] 7t [place] [address] Care Team Providers Care Sales Broker Name Role Phone Pascual Daly MD Primary Care Provide r Fani Heck PharmD Unavailable [phone] Dasia Waters PharmD Unavailable [phone] Reason for Visit * Reason Onset Date Comments Med Refill 12/15/2023 Encounter Details Date Type Department Care Team ([facility] st Contact Info) Description 12/15/[address] [facility] MEDICINE 230 [place], [place] [phone] Pascual Daly MD 230 [place], [place] [phone] Med Refill Social History Tobacco Use Types [...] immediate release tablet To be sent to: [facility] - [place], [place] - [address] [place] [address] documented in this encounter Plan of Treatment Upcoming Encounters Date Type Department Care Team ([facility] st Contact Info) Description 01/17/2025 10:30 AM EDT Medication Management [facility] MEDICINE 230 [place] [address] Dasia Waters, PharmD 230 [place] [address] 01/20/2025 10:30 AM EDT Clinical Support [facility] CHC MED & PEDS 505 [place] [address] Amanda Fernández, RN 505 [place] [address] 01/26/2025 9:00 AM EDT Office Visit [facility] ADULT DENTAL 230 [place], [place] [phone] Christian Winchester DDS 230 [place] [address] 02/17/2025 10:15 AM EDT Office Visit [facility] ADULT DENTAL 230 [place] [address] Gabriela Gaitan 230 [place] [address] documented as of this encounter Goals Goal [...] documented as of this encounter Care Teams Sales Broker Relationship Specialty Start Date End Date Pascual Daly MD 230 [place] [address] PCP - General Internal Medicine 02/22/14 Fani Heck, [place] [address] Pharmacist Internal Medicine 12/16/22 08/15/24 [place] [address] Pharmacist Internal Medicine 08/16/24 [place] [facility] 12/18/24 documented as of this encounter
--- OUTSIDE RECORDS SUMMARY | 2025-01-05 12:01 | XMS_ITS | Encounter Summary ---
Author Organization [employer] Address 75 [facility] 7t [place] [address] Care Team Providers Care Special Forces Weapons Sergeant Name Role Phone Pascual Daly MD Primary Care Provide r Fani Heck PharmD Unavailable + Dasia Waters PharmD Unavailable [phone] Encounter Details Date Type Department Care Team (Latest Contact Info) Description 05/26/2019 Abstract [facility] CONVERSION[facility] Dental, Provider, DDS Social History [...] Description 01/17/2025 10:30 AM EDT Medication Management [facility] MEDICINE 230 [place] [address] Dasia Waters, PharmD 230 [place] [address] 01/20/2025 10:30 AM EDT Clinical Support [facility] CHC MED & PEDS 505 [place] [address] Amanda Fernández, RN 505 [place] [address] 01/26/2025 9:00 AM EDT Office Visit [facility] ADULT DENTAL 230 [place] [address] Christian Winchester DDS [address] [place] [address] 02/17/2025 10:15 AM EDT Office Visit [facility] ADULT DENTAL [address] [place] [address] Gabriela Gaitan 230 [place] [address] documented as of this encounter Visit Diagnoses Not on filedocumented in this encounter Care Teams Special Forces Weapons Sergeant Relationship Specialty Start Date End Date Pascual Daly MD [address] [place] [address] PCP - General Internal Medicine 02/22/14 Fani Heck PharmD [address] [place] [address] Pharmacist Internal Medicine 12/16/22 08/15/24 Dasia Waters PharmD [address] [place] [address] Pharmacist Internal Medicine 08/16/24 [place] [facility] 12/18/24 documented as of this encounter
--- OUTSIDE RECORDS SUMMARY | 2025-01-05 12:01 | XMS_ITS | Encounter Summary ---
Author Organization [employer] Address 75 [facility] 7t [place] [address] Care Team Providers Care Airport Shuttle Driver Name Role Phone Pascual Daly MD Primary Care Provide r Fani Heck PharmD Unavailable +8 Dasia Waters PharmD Unavailable [phone] Reason for Visit * Reason Comments Med Refill Encounter Details Date Type Department Care Team (Late Contact Info) Description 08/08/2022 Refill [facility] [address] [place] [phone] Momo Rizo MD [address] [place] [address] Mild intermittent asthma without complication Social History [...] Upcoming Encounters Date Type Department Care Team ([facility] Contact Info) Description 01/17/2025 10:30 AM EDT Medication Management [facility] MEDICINE 230 [place] [address] Dasia Waters PharmD 230 [place] [address] 01/20/2025 10:30 AM EDT Clinical Support [facility] CHC MED & PEDS 505 [place] [address] Amanda Fernández, RN 505 [place] [address] 01/26/2025 9:00 AM EDT Office Visit [facility] ADULT DENTAL 230 [place] [address] Christian Winchester DDS [address] [place] [address] 02/17/2025 10:15 AM EDT Office Visit [facility] ADULT DENTAL 230 [place] [address] Gabriela Gaitan 230 [place] [address] documented as of this encounter Goals Goal [...] documented as of this encounter Care Teams Airport Shuttle Driver Relationship Specialty Start Date End Date Pascual Daly MD [address] [place] [address] PCP - General Internal Medicine 02/22/14 Fani Heck PharmD [address] [place] [address] Pharmacist Internal Medicine 12/16/22 08/15/24 Dasia Waters PharmD [address] [place] [address] Pharmacist Internal Medicine 08/16/24 Iker CORDERO 12/18/24 documented as of this encounter
--- OUTSIDE RECORDS SUMMARY | 2025-01-05 12:01 | XMS_ITS | Encounter Summary ---
Author Organization [employer] Address 75 [facility] 7t [place] [address] Care Team Providers Care Quartz Miner Name Role Phone Pascual Daly MD Primary Care Provide r Dasia Waters PharmD Unavailable [phone] Reason for Visit * Reason Onset Date Comments chart prep 01/03/2025 Encounter Details Date Type Department Care Team ([facility] st Contact Info) Description 01/03/2025 Telephone [facility] MEDICINE 230 [place] [address] Pascual Daly MD 230 [place] [address] chart prep Social History Tobacco Use Types [...] [facility] MEDICINE 230 [place] [address] Dasia Waters, KristiD 230 [place] [address] 01/20/2025 10:30 AM EDT Clinical Support [facility] CHC MED & PEDS 505 [place] [address] Amanda Fernández, RN 505 [place] [address] 01/26/2025 9:00 AM EDT Office Visit [facility] ADULT DENTAL 230 [place] [address] Christian Winchester DDS 230 [place] [address] 02/17/2025 10:15 AM EDT Office Visit [facility] ADULT DENTAL 230 [place] [address] Gabriela Gaitan 230 [place] [address] documented as of this encounter Goals Goal [...] documented as of this encounter Care Teams Quartz Miner Relationship Specialty Start Date End Date Pascual Daly MD [address] [place] [address] PCP - General Internal Medicine 02/22/14 Dasia Waters PharmD [address] [place] [address] Pharmacist Internal Medicine 08/16/24 Iker MARCUSA 12/18/24 documented as of this encounter
--- OUTSIDE RECORDS SUMMARY | 2025-01-05 12:01 | XMS_ITS | Encounter Summary ---
Author Organization [employer] Address [address] [facility] 7t [place] [address] Care Team Providers Care Youth Advocate Name Role Phone Pascual Daly MD Primary Care Provide r Fani Heck PharmD Unavailable +[phone] Dasia Waters PharmD Unavailable [phone] Encounter Details Date Type Department Care Team (Late Contact Info) Description 03/13/2022 Abstract [facility] MEDICINE [address] [place] [id number] Provider, MD Bill Social History Tobacco Use [...] Upcoming Encounters Date Type Department Care Team ([facility] Contact Info) Description 01/17/2025 10:30 AM EDT Medication Management [facility] [address] [place] [address] Dasia Waters, PharmD [address] [place] [address] 01/20/2025 10:30 AM EDT Clinical Support [facility] MED [facility] PEDS [address] [place] [address] Amanda Fernández, RN [address] [place] [address] 01/26/2025 9:00 AM EDT Office Visit [facility] ADULT DENTAL [address] [place] [address] Christian Winchester DDS [address] [place] [address] 02/17/2025 10:15 AM EDT Office Visit [facility] ADULT [facility]ENT[facility] [address] [place] [address] Kandy, Gabriela [address] [place] [address] documented as of this encounter Visit Diagnoses Not on filedocumented in this encounter Care Teams Youth Advocate Relationship Specialty Start Date End Date Psacual Daly MD [address] [place] [phone] PCP - General Internal Medicine 02/22/14 Fani Heck, KristiD [address] [place] [address] Pharmacist Internal Medicine 12/16/22 08/15/24 Dasia Waters, KristiD [address] [place] [address] Pharmacist Internal Medicine 08/16/24 [facility] 12/18/24 documented as of this encounter
--- OUTSIDE RECORDS SUMMARY | 2025-01-05 12:01 | XMS_ITS | Encounter Summary ---
Author Organization [employer] Address [address] [facility] 7t [place] [address] Care Team Providers Care Odd Piece Checker Name Role Phone Pascual Daly MD Primary Care Provide r Fani Heck PharmD Unavailable +[phone] Dasia Waters PharmD Unavailable [phone] Reason for Visit * Reason Comments Med Refill Encounter Details Date Type Department Care Team (Late st Contact Info) Description 01/01/2024 Refill [facility] [address] [place], [place] [phone] Momo Rizo MD [address] [place] [address] Social History Tobacco Use Types Packs/Day Years [...] is your housing situation today? I have sraahy pantoja 07/24/[address] you [...] 10:30 AM EDT Medication Management [facility] MEDICINE [address] [place] [address] Dasia Waters, PharmD [address] [place] [address] 01/20/2025 10:30 AM EDT Clinical Support [facility] MED & PEDS [address] [place] [address] Amanda Fernández, RN [address] [place] [address] 01/26/2025 9:00 AM EDT Office Visit [facility] ADULT DENTAL [address] [place] [address] Christian Winchester DDS [address] [place] [address] 02/17/2025 10:15 AM EDT Office Visit [facility] ADULT DENTAL [address] [place] [address] Gabriela Gaitan [address] [place] [address] documented as of this encounter Goals Goal [...] as of this encounter Care Teams Odd Piece Checker Relationship Specialty Start Date End Date Pascual Daly MD [address] [place] [address] PCP - General Internal Medicine 02/22/14 Fani Heck, PharmD [address] [place] [address] Pharmacist Internal Medicine 12/16/22 08/15/24 Dasia Waters PharmD [address] [place] [address] Pharmacist Internal Medicine 08/16/24 Iker MARCUSA 12/18/24 documented as of this encounter
--- OUTSIDE RECORDS SUMMARY | 2025-01-05 12:01 | XMS_ITS | Encounter Summary ---
Author Organization [employer] Address [address] [facility] 7t [place] [address] Care Team Providers Care Polish Compounder Name Role Phone Pascual Daly MD Primary Care Provide r Fani Heck PharmD Unavailable [phone] Dasia Waters PharmD Unavailable [phone] Reason for Visit * Reason Comments Med Refill Encounter Details Date Type Department Care Team ([facility] Contact Info) Description 12/28/2022 Refill [facility] MEDICINE [address] [place] [address] Titi Gray FNP Major depressive disorder with [...] Upcoming Encounters Date Type Department Care Team ([facility] Contact Info) Description 01/17/2025 10:30 AM EDT Medication Management [facility] MEDICINE [address] [place], [place] [phone] Dasia Waters PharmD [address] [place] [address] 01/20/2025 10:30 AM EDT Clinical Support [facility] MED [facility] PEDS [address] [place] [address] Amanda Fernández, RN [address] [place], [place] 01/26/2025 9:00 AM EDT Office Visit [facility] ADULT DENTAL [address] [place] [address] Christian Winchester DDS [address] [place] [address] 02/17/2025 10:15 AM EDT Office Visit [facility] ADULT DENTAL [address] [place] [address] Gabriela Gaitan [address] [place] [address] documented as of this encounter Goals Goal [...] documented as of this encounter Care Teams Polish Compounder Relationship Specialty Start Date End Date Pascual Dayl MD [address] [place] [phone] PCP - General Internal Medicine 02/22/14 Fani Heck PharmD [address] [place] [address] Pharmacist Internal Medicine 12/16/22 08/15/24 Dasia Waters PharmD [address] [place] [address] Pharmacist Internal Medicine 08/16/24 Iker CORDERO 12/18/24 documented as of this encounter
--- OUTSIDE RECORDS SUMMARY | 2025-01-05 12:01 | XMS_ITS | Encounter Summary ---
Author Organization [employer] Address [address] [facility] 7t [place] [address] Care Team Providers Care Soloist Dancer Name Role Phone Pascual Daly MD Primary Care Provide r Fani Heck PharmD Unavailable + Dasia Waters PharmD Unavailable [phone] Reason for Visit * Reason Onset Date Comments FYI 12/31/2023 Encounter Details Date Type Department Care Team ([facility] st Contact Info) Description 12/31/2023 Telephone [facility] MEDICINE [address] [place], [place] [phone] Pascual Daly MD [address] [place] [address] Social History Tobacco Use Types Packs/Day Years [...] any questions you can contact Franky at [phone]. documented in this encounter Plan of Treatment Upcoming Encounters Date Type Department Care Team (Late st Contact Info) Description 01/17/2025 10:30 AM EDT Medication Management [facility] MEDICINE [address] [place] [address] Dasia Waters, PharmD [address] [place] [address] 01/20/2025 10:30 AM EDT Clinical Support [facility] MED [facility] PEDS [address] [place] [address] Amanda Fernández, RN [address] [place] [address] 01/26/2025 9:00 AM EDT Office Visit [facility] ADULT DENTAL [address] [place] [address] Christian Winchester DDS [address] [place] [address] 02/17/2025 10:15 AM EDT Office Visit [facility] ADULT DENTAL [address] [place] [address] Gabriela Gaitan [address] [place] [address] documented as of this encounter Goals Goal [...] documented as of this encounter Care Teams Soloist Dancer Relationship Specialty Start Date End Date [place] [address] PCP - General Internal Medicine 02/22/14 Fani Heck, [place] [address] Pharmacist Internal Medicine 12/16/22 08/15/24 Dasia Waters, [place] [address] Pharmacist Internal Medicine 08/16/24 [facility] 12/18/24 documented as of this encounter
--- OUTSIDE RECORDS SUMMARY | 2025-01-05 12:01 | XMS_ITS | Clinical Summary ---
Author Organization [employer] Address [address] [employer] [address] [place] [address] Care Team Providers Care Chiropractor Sole Practitioner Name Role Phone Pascual Daly MD Primary Care Provide r Dasia Waters PharmD Unavailable [phone] Allergies Active Allergy Reactions Criticality Noted Date [...] ulcer 09/16/2024 Coronary artery disease invo lving [place] coronary artery of [place] heart without angina pectoris 08/12/2024 Assessment & [...] (01/04/2025 9:38 AM EDT): Patient [place] [facility] [place]24 - 11/10/24) S/P fall and head injury at the visit with hematology. Eventually admitted for head injury and wrist injury. Patient's 4th finger was dislocated, lip, nose, and forehead were lacerated. Physical Therapy recommended rehabilitation. Eventually discharged to [facility] for not meeting medical necessity for hospitalization. Instructed to follow up with orthopedics team. She was at [facility] from 11/10/24 - 12/17/24 Discharged home with medications and group home services. Instructed to follow up with PCP with us in 7 to 10 days. Today she feels fine, no complaints, has a follow up with orthopedics tomorrow Assessment & Plan (10/21/2023 10:15 AM EDT): Patient admitted [place] [facility] [place] after she presented to [facility] emergency room due to left-sided chest discomfort as per patient she was visiting family in [place], on August 26 she turned in high [...] (08/27/2022 10:19 AM EDT): followed by a insolvency consultant. 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 She says it falls out when she brushes her hair Pt evaluated by Dr Guevara Rheumatoid arthritis involvi ng multiple sites with positive rheumatoid factor 08/27/2022 Assessment & Plan (01/04/2025 9:23 AM EDT): Under the care of Rheumatology on [facility], last note 10/2023 Assessment & Plan (01/29/2024 11:21 AM EDT): Under the care of Rheumatology on [facility], last seen 10/2023 Assessment & Plan [...] seen by GI 09/07/2021 who ordered an SUSNA and GGT . SUSAN was strongly positive [...] a new Psychiatrist and a psychotherapist in [place] She tells me she is taking Effexor, [...] August. - Follow-up in [facility] in November. Repeat BMP and A1c prior [...] from 7.8 Eye exam done on: 12/2023 [facility] Dx with new [...] from 8.9 Eye exam done on: 12/2023 [facility] Dx with new [...] f/u She is under the care of Speech Pathology Assistant Dr Sprague, last seen 12/31/2023 On a [...] f/u She is under the care of Speech Pathology Assistant Dr Sprague, last seen 10/16/2023 On a [...] f/u She is under the care of Speech Pathology Assistant Dr Sprague, has a follow up with [...] f/u She is under the care of Speech Pathology Assistant Dr Sprague, has a follow up at [...] was referred to Dr. Manjinder Gonsales at [facility] as her medical insurance recommended this referral. [...] LDL-C. Melquiades WALLACE et al. TEN. 2013;310(19): 9498-4698 (http://education.CityHook.[employer]/faq/VJE631) Chol/HDLC Ratio <5.0 (calc) 4.2 3.7 2.5 [...] Description 01/04/2025 9:30 AM EDT Office Visit [facility] [address] [place] [address] Pascual Daly MD Hospital discharge follow-up (Primary Dx); Type 2 diabetes mellitus with right eye affected by mild nonproliferative retinopathy without macular edema, with long-term current use of insulin ([facility]); Rheumatoid arthritis involving multiple sites with positive rheumatoid factor ([facility]); Major depressive disorder with psychotic features ([facility]); Mixed stress and urge urinary incontinence; Sore throat 01/04/2025 Travel 01/03/2025 Telephone [facility] [address] [place] [address] Pascual Daly MD chart prep 12/31/2024 Telephone [facility] [address] [place] [address] Katie Harper, PharmD 12/22/2024 Telephone [facility] [address] [place] [address] Pascual Daly MD Durable Medical Equipment 12/15/2024 Patient Outreach [facility] [address] [place] [address] Pascual Daly MD Transition Of Care (Tcm) (HDF scheduled. ) 11/21/2024 Refill [facility] [address] [place] [address] Pascual Daly MD Pain; Benign hypertension 11/16/2024 Telephone [facility] [address] [place] [address] Pascual Daly MD 11/15/2024 Telephone [facility] [address] [place] [address] Pascual Daly MD Chart Prep 11/08/2024 Orders Only GENERIC EXTERNAL DATA DEPARTMENT Provider, Generic External Data 10/28/2024 10:30 AM EDT Clinical Support [facility] [address] [place] [address] Amanda Fernández RN Fibromyalgia 10/28/2024 Orders Only GENERIC EXTERNAL DATA DEPARTMENT Provider, Generic External Data 10/28/2024 Refill [facility] [address] [place] [address] Amanda Fernández RN Fibromyalgia 10/28/2024 Travel 10/27/[address] [address] Pascual Daly MD Fibromyalgia 10/14/2024 Travel from [...] Description 01/17/2025 10:30 AM EDT Medication Management [facility] [address] [place] [address] Dasia Waters, PharmD [address] [place] [address] 01/20/2025 10:30 AM EDT Clinical Support [facility] [address] [place] [address] Amanda Fernández, RN [address] [place] [address] 01/26/2025 9:00 AM EDT Office Visit [facility] [address] [place] [address] Christian Winchester DDS [address] [place] [address] 02/17/2025 10:15 AM EDT Office Visit [facility] [address] [place] [address] Kandy Gabriela [address] [place] [address] Health Maintenance Due Date Last Done Comments [...] edema, with long-term current use of insulin ([facility]) GLUCOSE, WHOLE BLOOD Routine 11/08/2024 8:15 AM [...] complication, with long-term current use of insulin ([facility]) Full PROPHYLAXIS - ADULT Routine 08/05/2024 10:00 [...] A OSOM (01/04/2025 10:08 AM EDT) Pathologist [facility] Rapid Influenza A Ag Negative Negative, Indeterminate QC Media Lot # [id number] Lot# Expiration Date Swab Nasopharyngeal structure / Unknown 01/04/2025 10:08 AM EDT us Pascual Terry MD POINT OF CARE TEST EN TER/EDIT ORDERABLES Final Result * POCT Rapid Influenza B BALL ID NOW (01/04/2025 9:54 AM EDT) Pathologist [facility] Influenza B Negative Negative, Indeterminate [facility] QC Media Lot # [id number] [facility] Lot# Expiration Date [facility] Swab 01/04/2025 9:54 AM EDT us Pascual Terry MD POINT OF CARE TEST EN TER/EDIT ORDERABLES Final Result [facility] [address] [place] [address] [phone] * POCT Rapid Covid-19 BALL ID NOW (01/04/2025 9:54 AM EDT) Pathologist [facility] [place] Coronavirus Antigen PCR Negative Negative, Indeterminate, None Detected, Invalid, Specimen unsatisfactory for evaluation, Weakly Positive, 2+ QC Media Lot # [id number] Lot# Expiration Date Swab 01/04/2025 9:54 AM EDT us Pascual Terry MD POINT OF CARE TEST EN TER/EDIT ORDERABLES Final Result * POCT Rapid Strep A BALL ID NOW (01/04/2025 9:51 AM EDT) [facility] Rapid Strep A Screen Negative Negative, None Detected QC Media Lot # [id number] Lot# Expiration Date Swab 01/04/2025 9:51 AM EDT us Pascual Terry MD POINT OF CARE TEST EN TER/EDIT ORDERABLES Final Result * POCT Rapid Covid-19 BinaxNOW (01/04/2025 9:51 AM EDT) [facility] Rapid COVID Ag Negative QC Media Lot # [id number] Lot# Expiration Date Swab 01/04/2025 9:51 AM EDT us Pascual Terry MD POINT OF CARE TEST EN TER/EDIT ORDERABLES Final Result * POCT Glucose (01/04/2025 9:29 AM EDT) Glucose Blood, POC 182 60 - 200 mg/dL QC Media Lot # [id number] Lot# Expiration Date [id number] Blood Capillary blood specimen / Unknown 01/04/2025 9:29 AM EDT us Pascual Terry MD POINT OF CARE TEST EN TER/EDIT ORDERABLES Final Result * (ABNORMAL) Glucose, Whole Blood (11/08/2024 8:15 AM EDT) Pathologist [facility] [place] Glucose, Whole Blood 285(H) 60 - 115 mg/dL [facility] Comment:METER #: [id number] Testing performed in the Endocrinology Department [address] , [address], [facility]. 11/08/2024 8:15 AM EDT 11/08/2024 8:19 AM EDT us Generic External Data Provider LAB BLOOD ORDERAB LES Final Result [facility] [address] [place] [phone] * (ABNORMAL) POCT HEATHER-14 Urine Drug Screen (10/28/2024 10:05 AM EDT) Pathologist [facility] THC Negative Negative Cocaine Screen, Urine Negative [...] 10:05 AM EDT Internal Pass Control Lot# [id number] Exp: 02-18-26 us Pascual Terry MD POINT OF CARE TEST EN TER/EDIT ORDERABLES Final Result * Vitamin D, 25-Hydroxy, Total, Immunoassay (10/28/2024 10:04 AM EDT) Vitamin D 25-OH Total 78.0 >30 ng/mL [facility] Comment: Health Based Reference Values*< 20 ng/mL Ajswziqlj29-12 ng/mL Insufficient> 30 ng/mL Sufficient*Dione TUCKER. N [...] Provider LAB BLOOD ORDERAB LES Final Result [facility] [address] [place] [phone] * T-SPOT??.TB (10/28/2024 10:04 AM EDT) T Spot TB Negative Negative [facility] Comment:A negative test resu lt does [...] as aquantitative test. TS PANEL A 1 [facility] TS PANEL B 0 [facility] Negative Control Passed [facility] Positive Control Passed [facility] Comment:For additional infor pat, please refer tohttp://education.[employer]/faq/YBO925(This link is being provided for informational/educational purposes only.)REPORT COMMENT:REC'D AT [facility] TEST WAS PERFORMED AT:[facility] [id number] [place] [id number] CORDON MD,PHD 10/28/2024 10:0 4 AM EDT 10/28/2024 3:44 PM EDT us Generic External Data Provider LAB BLOOD ORDERAB LES Final Result [facility] [address] [place] [phone] * Hepatitis Panel, General (10/28/2024 10:04 AM EDT) Hepatitis A IgM Nonreactive Nonreactive [facility] Comment:IgM antibodies to GARCIA V not detected; does not exclude earlyacute or recovered HAV infection. ~Hepatitis B Surface Antibody NONREACTIVE Nonreactive [facility] Comment:Nonreactive: < 8.00 mIU/mL Hepatitis B Core Antibody Nonreactive Nonreactive [facility] Hepatitis C Antibody Nonreactive Nonreactive [facility] Comment:Antibodies to HCV no t detected; does not exclude early acuteHCV infection. Hepatitis B Surface Ag Negative Negative [facility] 10/28/2024 10:0 4 AM EDT 10/28/2024 3:46 PM EDT Generic External Data Provider LAB BLOOD ORDERAB LES Final Result Performing Organization Address [facility] de Phone Number [facility] [address] [place] [phone] * Hepatitis C Viral RNA, Quantitative, Real-Time PCR (10/28/2024 10:04 AM EDT) [facility] Hepatitis C Viral Load <15 NOT DETECTED NOT DETECTED IU/mL [facility] HCV Log PCR <1.18 NOT DETECTED NOT DETECTED Log IU/mL [facility] Comment:For additional infor pat, please refer tohttp://education.[employer]/faq/PKB60l1(This link is being provided for informational/educational purposes only.)THIS TEST WAS PERFORMED AT:[facility] [place] [phone] HURLEY MD 10/28/2024 10:0 4 AM EDT 10/28/2024 3:46 PM EDT Generic External Data Provider LAB BLOOD ORDERAB LES Final Result Performing Organization Address [facility] de Phone Number [facility] [address] [place] [phone] * (ABNORMAL) CBC auto differential (10/28/2024 10:04 AM EDT) [facility] White Blood Count 9.5 4.8 - 10.8 X10*3/uL [facility] Red Blood Count 4.17(L) 4.20 - 5.50 X10*6/uL [facility] Hemoglobin 11.7(L) 12.0 - 16.0 g/dl [facility] Hematocrit 36.6(L) 37.0 - 47.0 % [facility] Mean Corpuscular Volume 87.8 80.0 - 98.0 fL [facility] Mean Corpuscular Hemoglobin 28.1 27.0 - 33.0 pg [facility] Mean Corpuscular HGB Conc 32.0 31.0 - 35.0 g/dl [facility] Red Cell Distribution Width 13.9 11.0 - 16.0 % [facility] Platelet Count 199 160 - 400 X10*3/uL [facility] Mean Platelet Volume 11.4 9.4 - 12.3 fL [facility] Neutrophils Percent Auto 49.1 45 - 73 % [facility] Imm Gran Pct Auto 0.2 0.0 - 0.4 % [facility] Lymphocytes Percent Auto 31.2 20 - 40 % [facility] Monocytes Percent Auto 6.2 2 - 11 % [facility] Eosinophils Percent Auto 12.1(H) 0 - 4 % [facility] Basophils Percent Auto 1.2 0 - 2 % [facility] NRBC Pct Auto 0.0 0.0 - 0.2 /100WBC [facility] Neutrophils Absolute Auto 4.7 2.0 - 8.3 x10*3/uL [facility] Imm Gran Abs Auto 0.02 0.00 - 0.03 X10*3/uL [facility] Lymphocytes Absolute Auto 3.0 1.2 - 4.9 X10*3/uL [facility] Monocytes Absolute Auto 0.6 0.1 - 1.2 X10*3/uL [facility] Eosinophils Absolute Auto 1.1(H) 0.0 - 0.4 X10*3/uL [facility] Basophils Absolute Auto 0.1 0.0 - 0.2 X10*3/uL [facility] NRBC Abs Auto 0.000 0.0 - 0.012 X10*3/uL [facility] 10/28/2024 10:0 4 AM EDT 10/28/2024 3:46 PM EDT us Generic External Data Provider LAB BLOOD ORDERAB LES Final Result Performing Organization Address [facility]/ZIP Co de Phone Number [facility] [address] [place] [phone] * Sed Rate by Modified Leightonergren (10/28/2024 10:04 AM EDT) Erythrocyte Sedimentation Rate 2 0 - 20 MM/HR [facility] Comment:Patients with polycy themia and many hemoglobin abnormalitiesmay have depressed sed rates whereas patients with anemiamay have elevated sed rates. 10/28/2024 10:0 4 AM EDT 10/28/2024 3:46 PM EDT Generic External Data Provider LAB BLOOD ORDERAB LES Final Result Performing Organization Address [facility] Co de Phone Number [facility] [address] [place] [phone] * Lipid Panel, Standard (08/16/2024 9:24 AM EDT) Triglycerides 100 <150 mg/dL [facility] Comment:Desirable Triglyceri de: less than 150 mg/dLBorderline High Triglyceride 150-199 mg/dLHigh Triglyceride: 200-499 mg/dLVery High Triglyceride: greater than or equal to 5OO mg/dL Cholesterol 145 <200 mg/dL [facility] Comment:Desirable Cholestero l: less than 200 mg/dLBorderline High Cholesterol: 200-239 mg/dLHigh Cholesterol: greater than 239 mg/dL LDL Cholesterol Calculated 60 <100 mg/dL [facility] Comment:Desirable LDL: less than 100 mg/dLNear Optimal/Above Optimal LDL: 110- 129 mg/dLBorderline High LDL: 130-159 mg/dLHigh LDL: 160-189 mg/dLVery High LDL: greater than or equal to 190 mg/dL HDL Cholesterol 65 >40 mg/dL [facility] Comment:Desirable HDL: great er than 40 mg/dL Note: This HDL assay may give artificially low results in patients with liver disease. Blood Venous blood specimen / Unknown 08/16/2024 9:24 AM EDT 08/16/2024 10:57 AM EDT Pascual Terry MD LAB BLOOD ORDERABLES Final Result [facility] [address] [place] [phone] [phone] * (ABNORMAL) POCT HGB A1C (08/12/2024 [...] AM EDT Narrative 08/10/2024 3:27 PM EDT [address] [place] [address] Mammography Report Signed Patient: Brandie Santana MR#: [id number] : 1950 Acct:[id number] Age/Sex: 74 / F ADM Date: 08/02/24 Loc: HO.MAMMO Attending Dr: Pascual Darnell MD Ordering Physician: Pascual Darnell MD Resu lts: 2Benign Findings Date of Service: 08/02/24 Follow Up: 1 Year From Orig inal Mammogram Procedure(s): MM tomosynthesis screening BI Accession Number(s): [id number] cc: Pascual Darnell MD EXAMINATION: MM SCREENING [...] 08/10/24 1523 DD/ 1103 TD/TT: 08/02/24 1116 Perfect Bind Machine Operator: Procedure Note Donotuseinterpreter, Image - 08/10/2024 [facility] [address] [place] [address] Mammography Report Signed Patient: Dino Santana#: [id number] : 1950Acct:[id number] Age/Sex: 74 / FADM Date: 08/02/24 Loc: CYNTHIAO Attending Dr: Pascual Darnell MD Ordering Physician: Pascual Darnell MDResu lts: 2Benign Findings Date of Service: 08/02/24Follow Up: 1 Year From Orig inal Mammogram Procedure(s): MM tomosynthesis screening BI Accession Number(s): [id number] cc: Pascual Darnell MD EXAMINATION: MM SCREENING [...] 08/10/24 1523 DD/ 1103 TD/TT: 08/02/24 1116 Perfect Bind Machine Operator: us Pascual Terry MD IMG BI PROCEDURES Fin al Result * (ABNORMAL) Albumin, Random Urine W/Creatinine (07/02/2023 10:06 AM EDT) Creatinine, Urine 163.81 mg/dL [facility] Microalbumin Urine 59.0 mg/L [facility] Microalbum Creatinine Ratio Ur 36.0(H) <30 ug/mg cr [facility] Comment:Albumin/Creatinine R atio Reference Ranges: Normal: < 30 ug/mg creatinine Microalbuminuria: 30 - 300 ug/mg creatinineClinical Albuminuria: > 300 ug/mg creatinine 07/02/2023 10:0 6 AM EDT 07/02/2023 11:41 AM EDT us Generic External Data Provider LAB URINE ORDERAB LES Final Result [facility] [address] [place] [phone] * Colonoscopy (03/20/2018) Colonoscopy Normal Normal 03/20/2018 Narrative Sondra Rowe - 03/20/2018 9:09 AM EST Recommended 10 year follow up us Historical Provider HEALTH MAINTENANCE Edited Result - Final from Last 3 Months or Most Recently Relevant to Health Maintenance Insurance [facility] OPTIONS (HMO D-SNP) [facility] Care Teams Chiropractor Sole Practitioner Relationship Specialty Start Date End Date Pascual Daly MD [address] [place] [address] PCP - General Internal Medicine 02/22/14 Dasia Waters PharmD [address] [place] [address] Pharmacist Internal Medicine 08[facility]16[facility]24 [facility]
--- OUTSIDE RECORDS SUMMARY | 2025-01-05 12:01 | XMS_ITS | Encounter Summary ---
Author Organization [employer] Address [address] [facility] [address]t [place] [address] Care Team Providers Care Process Design Engineer Name Role Phone Pascual Daly MD Primary Care Provide r Fani Heck PharmD Unavailable + Dasia Waters PharmD Unavailable [phone] Reason for Visit * Reason Comments Med Refill Encounter Details Date Type Department Care Team (Late st Contact Info) Description 10/21/2023 Refill [facility] [address] [place] [address] Titi Gray FNP Major depressive disorder with [...] 01/17/2025 10:30 AM EDT Medication Management [facility] [address] [place] [address] Dasia Waters, KristiD [address] [place] [address] 01/20/2025 10:30 AM EDT Clinical Support [facility] [address] [place] [address] Amanda Fernández, RN [address] [place] [address] 01/26/2025 9:00 AM EDT Office Visit [facility] [address] [place] [address] Christian Winchester DDS [address] [place] [address] 02/17/2025 10:15 AM EDT Office Visit [facility] [address] [place] [address] Gabriela Gaitan [address] [place] [address] documented as of this encounter Goals Goal [...] documented as of this encounter Care Teams Process Design Engineer Relationship Specialty Start Date End Date Pascual Daly MD [address] [place] [address] PCP - General Internal Medicine 02/22/14 Fani Heck, PharmD [address] [place] [address] Pharmacist Internal Medicine 12/16/22 08/15/24 Dasia Waters PharmD [address] [place] [address] Pharmacist Internal Medicine 08/16/24 [facility] 12/18/24 documented as of this encounter
--- OUTSIDE RECORDS SUMMARY | 2025-01-05 12:01 | XMS_ITS | Encounter Summary ---
Author Organization [employer] Address [address] [facility] 7t [place] [address] Care Team Providers Care Varnish Maker Helper Name Role Phone Pascual Daly MD Primary Care Provide r Fani Heck PharmD Unavailable [phone] Dasia Waters PharmD Unavailable [phone] Reason for Visit * Reason Comments Med Refill Encounter Details Date Type Department Care Team ([facility] st Contact Info) Description 03/04/2023 Refill [facility] [address] [place] [address] Pascual Daly MD [address] [place] [address] Type 2 diabetes mellitus without complication, with long-term current use of insulin ([facility]) Social History Tobacco Use Types [...] EDT Medication Management [facility] [address] [place] [address] Dasia Waters, PharmD [address] [place] [address] 01/20/2025 10:30 AM EDT Clinical Support [facility] [address] [place] [address] Amanda Fernández, RN [address] [place] [address] 01/26/2025 9:00 AM EDT Office Visit [facility] [address] [place] [address] Christian Winchester DDS [address] [place] [address] 02/17/2025 10:15 AM EDT Office Visit [facility] [address] [place] [address] Gabriela Gaitan [address] [place] [address] documented as of this encounter Goals Goal Patient Goal Type Associated Problems Recent Progress Patient-Stated? Author Blood Pressure < 140/90 Blood Pressure 126/59( 025 9:28 AM EDT) No Fani Heck, PharmGuido documented as of this encounter Visit Diagnoses Diagnosis Type 2 diabetes mellitus without complication, with long-term current use of insulin ([facility]) documented in this encounter Additional Health Concerns Assessment Noted Time PHQ-9 Depression Total Score: 9 02/25/20 23 11:02 AM EST documented as of this encounter Care Teams Varnish Maker Helper Relationship Specialty Start Date End Date Pascual Daly MD [address] [place] [address] PCP - General Internal Medicine 02/22/14 Fani Heck, PharmD [address] [place] [address] Pharmacist Internal Medicine 12/16/22 08/15/24 Dasia Waters PharmD [address] [place] [address] Pharmacist Internal Medicine 08/16/24 Iker CORDERO 12/18/24 documented as of this encounter
--- OUTSIDE RECORDS SUMMARY | 2025-01-05 12:01 | XMS_ITS | Encounter Summary ---
Author Organization [employer] Address 75 [facility] 7t [place] [address] Care Team Providers Care Aviation Support Equipment Repairer Name Role Phone Pascual Daly MD Primary Care Provide r Fani Heck PharmD Unavailable +[phone] Dasia Watesr PharmD Unavailable [phone] Reason for Visit * Reason Onset Date Comments Med Refill 01/13/2024 Encounter Details Date Type Department Care Team ([facility] st Contact Info) Description 01/13/2024 Telephone [facility] MEDICINE [address] [place], [place] [phone] Pascual Daly MD 230 [place] [address] Med Refill Social History Tobacco Use Types [...] immediate release tablet To be sent to: [facility] - [place], [place] - [address] [place] [address] documented in this encounter Plan of Treatment Upcoming Encounters Date Type Department Care Team ([facility] st Contact Info) Description 01/17/2025 10:30 AM EDT Medication Management [facility] MEDICINE [address] [place] [address] Dasia Waters, PharmD 230 [place] [address] 01/20/2025 10:30 AM EDT Clinical Support [facility] CHC MED & PEDS [address] [place] [address] Amanda Fernández, RN 505 [place] [address] 01/26/2025 9:00 AM EDT Office Visit [facility] ADULT DENTAL [address] [place], [place] [phone] Christian Winchester DDS [address] [place] [address] 02/17/2025 10:15 AM EDT Office Visit [facility] ADULT DENTAL [address] [place], [place] [phone] Gabriela Gaitan 230 [place] [address] documented as of this encounter Goals Goal [...] documented as of this encounter Care Teams Aviation Support Equipment Repairer Relationship Specialty Start Date End Date [place] [address] PCP - General Internal Medicine 02/22/14 Fani Heck, PharmD [address] [place] [address] Pharmacist Internal Medicine 12/16/22 08/15/24 [place] [address] Pharmacist Internal Medicine 08/16/24 [facility] 12/18/24 documented as of this encounter
--- OUTSIDE RECORDS SUMMARY | 2025-01-05 12:01 | XMS_ITS | Encounter Summary ---
Author Organization [employer] Address 75 [facility] 7t [place] [address] Care Team Providers Care Province Archivist Name Role Phone Pascual Daly MD Primary Care Provide r Fani Heck PharmD Unavailable [phone] Dasia Waters PharmD Unavailable [phone] Reason for Visit * Reason Comments Med Refill Encounter Details Date Type Department Care Team ([facility] st Contact Info) Description 01/14/2024 Refill [facility] CHC MED & PEDS [address] [place] [address] Pascual Daly MD 230 [place], [place] [phone] Fibromyalgia Social History Tobacco Use Types Packs/Day [...] Description 01/17/2025 10:30 AM EDT Medication Management [facility] MEDICINE 230 [place] [address] Dasia Waters, PharmD 230 [place] [address] 01/20/2025 10:30 AM EDT Clinical Support [facility] CHC MED & PEDS 505 [place] [address] Amanda Fernández, RN 505 [place] [address] 01/26/2025 9:00 AM EDT Office Visit [facility] ADULT DENTAL 230 [place] [address] Christian Winchester DDS 230 [place] [address] 02/17/2025 10:15 AM EDT Office Visit [facility] ADULT DENTAL 230 [place] [address] Gabriela Gaitan 230 [place] [address] documented as of this encounter Goals Goal [...] documented as of this encounter Care Teams Province Archivist Relationship Specialty Start Date End Date Pascual Daly MD [address] [place] [address] PCP - General Internal Medicine 02/22/14 Fani Heck, Woody [address] [place] [address] Pharmacist Internal Medicine 12/16/22 08/15/24 Dasia Waters PharmD [address] [place] [address] Pharmacist Internal Medicine 08/16/24 Iker MARCUSA 12/18/24 documented as of this encounter
--- OUTSIDE RECORDS SUMMARY | 2025-01-05 12:01 | XMS_ITS | Encounter Summary ---
Author Organization [employer] Address 75 [facility] 7t [place] [address] Care Team Providers Care Explosive Expert Name Role Phone Pascual Daly MD Primary Care Provide r Fani Heck PharmD Unavailable [phone] Dasia Waters PharmD Unavailable [phone] Reason for Visit * Reason Comments Med Refill Encounter Details Date Type Department Care Team ([facility] st Contact Info) Description 07/16/2022 Refill [facility] MEDICINE 230 [place] [address] Pascual Daly MD 230 [place] [address] Social History Tobacco Use Types Packs/Day Years [...] 10:30 AM EDT Medication Management [facility] MEDICINE [address] [place] [address] Dasia Waters PharmD 230 [place] [address] 01/20/2025 10:30 AM EDT Clinical Support [facility] CHC MED & PEDS 505 [place] [address] Amanda Fernández, AALIYAH 505 [place] [address] 01/26/2025 9:00 AM EDT Office Visit [facility] ADULT DENTAL 230 [place] [address] Christian Winchester DDS 230 [place] [address] 02/17/2025 10:15 AM EDT Office Visit [facility] ADULT DENTAL 230 [place] [address] Gabriela Gaitan 230 [place] [address] documented as of this encounter Goals Goal [...] documented as of this encounter Care Teams Explosive Expert Relationship Specialty Start Date End Date Pascual Daly MD [address] [place] [address] PCP - General Internal Medicine 02/22/14 Fani Heck, KristiD [address] [place] [address] Pharmacist Internal Medicine 12/16/22 08/15/24 Dasia Waters, Woody [address] [place] [address] Pharmacist Internal Medicine 08/16/24 Iker CORDERO 12/18/24 documented as of this encounter
--- OUTSIDE RECORDS SUMMARY | 2025-01-05 12:01 | XMS_ITS | Encounter Summary ---
Author Organization [email or web address] Address 75 [facility] 7t [place] [address] Care Team Providers Care Trial Court Judge Name Role Phone Pascual Daly MD Primary Care Provide r Dasia Waters PharmD Unavailable [phone] Encounter Details Date Type Department Care Team [...] Description 01/17/2025 10:30 AM EDT Medication Management [facility] MEDICINE 230 [place] [address] Dasia Waters, Woody 230 [place] [address] 01/20/2025 10:30 AM EDT Clinical Support [facility] CHC MED & PEDS 505 [place] [address] Amanda Fernández, RN 505 [place], [place] 01/26/2025 9:00 AM EDT Office Visit [facility] ADULT DENTAL 230 [place] [address] Christian Winchester DDS 230 [place] [address] 02/17/2025 10:15 AM EDT Office Visit [facility] ADULT DENTAL 230 [place] [address] Gabriela Gaitan 230 [place] [address] documented as of this encounter Goals Goal [...] documented as of this encounter Care Teams Trial Court Judge Relationship Specialty Start Date End Date Pascual Daly MD [address] [place] [address] PCP - General Internal Medicine 02/22/14 Dasia Waters, KristiD [address] [place] [address] Pharmacist Internal Medicine 08/16/24 Iker MARCUSA 12/18/24 documented as of this encounter
--- OUTSIDE RECORDS SUMMARY | 2025-01-05 12:01 | XMS_ITS | Encounter Summary ---
Author Organization [employer] Address 75 [facility] 7t [place] [address] Care Team Providers Care Pricing Strategist Name Role Phone Pascual Daly MD Primary Care Provide r Dasia Waters PharmD Unavailable [phone] Encounter Details Date Type Department Care Team ([facility] st Contact Info) Description 12/31/2024 Telephone [facility] MEDICINE 230 [place] [address] Katie Harper PharmD 230 [place], [place] [phone] Social History Tobacco Use Types Packs/Day Years [...] pull ups; she reports previously receiving/coverage from [facility]. Thank you! documented in this encounter Plan of Treatment Upcoming Encounters Date Type Department Care Team (Late st Contact Info) Description 01/17/2025 10:30 AM EDT Medication Management [facility] MEDICINE 230 [place] [address] Dasia Waters, Woody 230 [place] [address] 01/20/2025 10:30 AM EDT Clinical Support [facility] CHC MED & PEDS 505 [place] [address] Amanda Fernández, RN 505 [place], [place] 01/26/2025 9:00 AM EDT Office Visit [facility] ADULT DENTAL 230 [place] [address] Christian Winchester DDS 230 [place] [address] 02/17/2025 10:15 AM EDT Office Visit [facility] ADULT DENTAL 230 [place] [address] Gabriela Gaitan 230 [place] [address] documented as of this encounter Goals Goal [...] documented as of this encounter Care Teams Pricing Strategist Relationship Specialty Start Date End Date Pascual Daly MD [address] [place] [address] PCP - General Internal Medicine 02/22/14 Dasia Waters PharmD [address] [place] [address] Pharmacist Internal Medicine 08/16/24 Iker MARCUSA 12/18/24 documented as of this encounter
--- OUTSIDE RECORDS SUMMARY | 2025-01-05 12:02 | XMS_ITS | Encounter Summary ---
Author Organization [facility] Address [address] [place] [address] Care Team Providers Care Micro Computer Data Processor Name Role Phone Pascual Darnell MD Primary Care Provi chio Encounter Details Date Type Department Care Team (Late Contact Info) Description 11/23/2024 Lab Requisition [facility] - Main Lab 299 [facility] [place] [phone] Vero Mike MD [address] [place], [place] [phone] Type 1 diabetes mellitus with hyperglycemia (CMS/HCC [...] AM EST Office Visit [facility] [place] [address] [phone] Luciano Smith DPM [address] [phone] documented as of this encounter Procedures Procedure Name Priority Date/Time Associated Diagnosis Comments VITAMIN D 25 HYDROXY Routine 11/24/2024 6:16 AM EDT Type 1 diabetes mellitus with hyperglycemia (CMS/HCC V24, CMS/HCC V28) Old myocardial infarction Essential (primary) hypertension Vitamin D deficiency, unspecified COMPLETE BLOOD COUNT Routine 11/24/2024 6:16 AM EDT Type 1 diabetes mellitus with hyperglycemia ([facility] V24, [facility]/HCC V28) Old myocardial infarction Essential (primary) hypertension Vitamin D deficiency, unspecified THYROID STIMULATING HORMONE Routine 11/24/2024 6:16 AM EDT Type 1 diabetes mellitus with hyperglycemia ([facility]/HCC V24, [facility] V28) Old myocardial infarction Essential (primary) hypertension Vitamin D deficiency, unspecified HEMOGLOBIN A1C Routine 11/24/2024 6:16 AM EDT Type 1 diabetes mellitus with hyperglycemia ([facility]/HCC V24, [facility] V28) Old myocardial infarction Essential (primary) hypertension Vitamin D deficiency, unspecified VITAMIN B12 Routine 11/24/2024 6:16 AM EDT Type 1 diabetes mellitus with hyperglycemia ([facility]/HCC V24, [facility] V28) Old myocardial infarction Essential (primary) hypertension Vitamin D deficiency, unspecified COMPREHENSIVE METABOLIC PANEL Routine 11/24/2024 6:16 AM EDT Type 1 diabetes mellitus with hyperglycemia ([facility]/HCC V24, [facility] V28) Old myocardial infarction Essential (primary) hypertension Vitamin D deficiency, unspecified documented in this encounter Results * (ABNORMAL) Hemoglobin A1c (11/24/2024 6:16 AM EDT) Hemoglobin A1C 8.9(H) <6.5 % LAB CHEMISTRY METHOD 11/24/2024 12:29 PM EDT [facility] Mean Bld Glu Estim. 209 mg/dL LAB CHEMISTRY METHOD 11/24/2024 12:29 PM EDT [facility] Blood Venous blood specimen / Unknown Venipuncture / Unknown 11/24/2024 6:16 AM EDT 11/24/2024 10:24 AM EDT us Fahim A Rashid MD LAB BLOOD ORDERABLES Final Resul t [facility] [address] [place] [address], * (ABNORMAL) Complete blood count (11/24/2024 6:16 AM EDT) WBC 8.5 4.8 - 10.8 K/mcL LAB HEMETOLOGY METHOD 11/24/2024 11:00 AM [facility] RBC 3.80 3.80 - 4.80 M/mcL LAB HEMETOLOGY METHOD 11/24/2024 11:00 AM [facility] Hemoglobin 10.4(L) 11.5 - 16.0 [...] LAB HEMETOLOGY METHOD 11/24/2024 11:00 AM EDT [facility] NRBC 0.0 <1.0 % LAB HEMETOLOGY METHOD 11/24/2024 11:00 AM EDT [facility] NRBC Absolute 0.00 <0.10 K/mcL LAB HEMETOLOGY METHOD 11/24/2024 11:00 AM T [facility] Blood Venous blood specimen / Unknown Venipuncture / Unknown 11/24/2024 6:16 AM EDT 11/24/2024 10:24 AM EDT us Vero Mike MD LAB BLOOD ORDERABLES Final Resul t [facility] [address] [place] [address], [place] [phone] * (ABNORMAL) Comprehensive metabolic panel (11/24/2024 6:16 [...] MD LAB BLOOD ORDERABLES Final Resul t [facility] [address] [place] [address], [place] [phone] * Thyroid stimulating hormone (11/24/2024 6:16 AM EDT) [facility] TSH 1.63 0.40 - 4.00 mcIU/mL LAB CHEMISTRY METHOD 11/24/2024 1:30 PM EDT [facility] Blood Venous blood specimen / Unknown Venipuncture / Unknown 11/24/2024 6:16 AM EDT 11/24/2024 10:32 AM EDT us Vero Mike MD LAB BLOOD ORDERABLES Final Resul t Performing Organization Address City/[facility] Co de Phone Number [facility] [address] [place] [address], [place] [phone] * Vitamin D 25 hydroxy (11/24/2024 6:16 AM EDT) [facility] Vit D, 25-Hydroxy 50.1 30.0 - 80.0 ng/mL LAB CHEMISTRY METHOD 11/24/2024 1:30 PM EDT [facility] Blood Venous blood specimen / Unknown Venipuncture / Unknown 11/24/2024 6:16 AM EDT 11/24/2024 10:32 AM EDT us Vero Mike MD LAB BLOOD ORDERABLES Final Resul t Performing Organization Address City/[facility]/ZIP Co de Phone Number [facility] [address] [place] [address], [place] [phone] * (ABNORMAL) Vitamin B12 (11/24/2024 6:16 AM EDT) [facility] Vitamin B-12 979(H) 250 - 900 pcg/mL LAB CHEMISTRY METHOD 11/24/2024 11:58 AM EDT [facility] Blood Venous blood specimen / Unknown Venipuncture / Unknown 11/24/2024 6:16 AM EDT 11/24/2024 10:32 AM EDT us Vero Mike MD LAB BLOOD ORDERABLES Final Resul t [facility] ([facility]) [facility] [address] [place] [address], documented in this encounter Visit Diagnoses Diagnosis Type 1 diabetes mellitus with hyperglycemia (CMS/[facility] V24, [facility] V28) Old myocardial infarction Essential (primary) hypertension Unspecified essential hypertension Vitamin D deficiency, unspecified documented in this encounter Care Teams Micro Computer Data Processor Relationship Specialty Start Date End Date Pascual Darnell MD [address] [place] [address] PCP - General Internal Medicine 06/18/24 documented as of this encounter
--- OUTSIDE RECORDS SUMMARY | 2025-01-05 12:02 | XMS_ITS | Encounter Summary ---
Author Organization [facility] [employer] Address 75 [facility] 7t [place] [address] Care Team Providers Care Banquet Coordinator Name Role Phone Pascual Daly MD Primary Care Provide r Fani Heck PharmD Unavailable + Dasia Waters PharmD Unavailable [phone] Encounter Details Date Type Department Care Team (Late st Contact Info) Description 03/11/2022 Abstract [facility] MEDICINE 230 [place] [address] Pascual Daly MD 230 [place], [place] [phone] Social History Tobacco Use Types Packs/Day Years [...] 10:30 AM EDT Medication Management [facility] MEDICINE [address] [place] [address] Dasia Waters, PharmD 230 [place] [address] 01/20/2025 10:30 AM EDT Clinical Support [facility] CHC MED & PEDS 505 [place] [address] Amanda Fernández, RN 505 [place] [address] 01/26/2025 9:00 AM EDT Office Visit [facility] ADULT DENTAL 230 [place] [address] Christian Winchester DDS [address] [place] [address] 02/17/2025 10:15 AM EDT Office Visit [facility] ADULT DENTAL [address] [place] [address] Gabriela Gaitan 230 [place] [address] documented as of this encounter Visit Diagnoses Not on filedocumented in this encounter Care Teams Banquet Coordinator Relationship Specialty Start Date End Date Pascual Daly MD [address] [place] [address] PCP - General Internal Medicine 02/22/14 Fani Heck, KristiD [address] [place] [address] Pharmacist Internal Medicine 12/16/22 08/15/24 Dasia Waters, KristiD [address] [place] [address] Pharmacist Internal Medicine 08/16/24 [facility] 12/18/24 documented as of this encounter
--- OUTSIDE RECORDS SUMMARY | 2025-01-05 12:02 | XMS_ITS | Encounter Summary ---
Author Organization [employer] Address 75 [facility] 7t [place] [address] Care Team Providers Care Automotive Parts Salesperson Name Role Phone Pascual Daly MD Primary Care Provide r Fani Heck PharmD Unavailable + Dasia Waters PharmD Unavailable [phone] Encounter Details Date Type Department Care Team (Late Contact Info) Description 03/11/2022 Abstract [facility] MEDICINE 230 [place] [address] Fani Heck, PharmD 230 [place], [place] [phone] Social History Tobacco Use Types Packs/Day Years [...] Upcoming Encounters Date Type Department Care Team ([facility] Contact Info) Description 01/17/2025 10:30 AM EDT Medication Management [facility] MEDICINE 230 [place], [place] [phone] Dasia Wtaers, PharmD 230 [place], [place] [phone] 01/20/2025 10:30 AM EDT Clinical Support [facility] CHC MED & PEDS 505 [place] [address] Amanda Fernández, RN 505 [place] [address] 01/26/2025 9:00 AM EDT Office Visit [facility] ADULT DENTAL 230 [place] [address] Christian Winchester DDS 230 [place] [address] 02/17/2025 10:15 AM EDT Office Visit [facility] ADULT DENTAL 230 [place] [address] Gabriela Gaitan 230 [place] [address] documented as of this encounter Visit Diagnoses Not on filedocumented in this encounter Care Teams Automotive Parts Salesperson Relationship Specialty Start Date End Date Pascual Daly MD [address] [place] [address] PCP - General Internal Medicine 02/22/14 Fani Heck, PharmD [address] [place] [address] Pharmacist Internal Medicine 12/16/22 08/15/24 Dasia Waters, KristiD [address] [place] [address] Pharmacist Internal Medicine 08/16/24 [place] [facility] 12/18/24 documented as of this encounter
--- OUTSIDE RECORDS SUMMARY | 2025-01-05 12:02 | XMS_ITS | Encounter Summary ---
Author Organization [facility] Address [address] [place] [address] Care Team Providers Care Strategy Lead Name Role Phone aPscual Darnell MD Primary Care Provi chio Encounter Details Date Type Department Care Team (Late st Contact Info) Description 11/16/2024 Lab Requisition [facility] - Main Lab [address] [facility] [place] [phone] Vero Mike MD [address] [place] [address] Altered mental status, unspecified Social History Tobacco [...] AM EST Office Visit [facility] [place] [address] [phone] Luciano Smith DPM 175 [facility] 250 [place] [phone] documented as of this encounter Procedures Procedure [...] reflex microscopic (11/15/2024 12:20 PM EDT) Specific [place] Urine 1.012 1.003 - 1.030 LAB URINALYSIS - AUTOMATED METHOD 11/16/2024 9:53 AM [facility] pH, Urine 6.0 5.0 - 8.0 pH LAB URINALYSIS - AUTOMATED METHOD 11/16/2024 9:53 AM [facility] Leukocytes, Urine Small(A) Negative LAB URINALYSIS - AUTOMATED METHOD 11/16/2024 9:53 AM [facility] Nitrite, Urine Negative Negative LAB URINALYSIS - AUTOMATED METHOD 11/16/2024 9:53 AM [facility] Protein, Urine Negative <=Trace mg/dL LAB URINALYSIS - AUTOMATED METHOD 11/16/2024 9:53 AM [facility] Glucose, Urine 100(A) Negative mg/dL LAB URINALYSIS - AUTOMATED METHOD 11/16/2024 9:53 AM [facility] Ketones, Urine Negative Negative mg/dL LAB URINALYSIS - AUTOMATED METHOD 11/16/2024 9:53 AM [facility] Urobilinogen, Urine 0.2 0.2 - 1.0 mg/dL LAB URINALYSIS - AUTOMATED METHOD 11/16/2024 9:53 AM [facility] Bilirubin, Urine Negative Negative LAB URINALYSIS - AUTOMATED METHOD 11/16/2024 9:53 AM [facility] Blood, Urine Negative Negative LAB URINALYSIS - AUTOMATED METHOD 11/16/2024 9:53 AM [facility] RBC, Urine 1.7 0 - 4 /HPF LAB URINALYSIS - AUTOMATED METHOD 11/16/2024 9:53 AM EDT [facility] WBC, Urine 4.4(H) 0 - 4 /HPF LAB URINALYSIS - AUTOMATED METHOD 11/16/2024 9:53 AM EDT [facility] Squamous Epithelial, Urine 42 0 - 60 /LPF LAB URINALYSIS - AUTOMATED METHOD 11/16/2024 9:53 AM EDT [facility] Bacteria, Urine Many(A) Negative /HPF LAB URINALYSIS - AUTOMATED METHOD 11/16/2024 9:53 AM EDT [facility] Hyaline Casts, Urine 1.2 0 - 3 /LPF LAB URINALYSIS - AUTOMATED METHOD 11/16/2024 9:53 AM EDT [facility] Urine Urine specimen obtained by clean catch procedure / Unknown Non-blood Collection / Unknown 11/15/2024 12:20 PM EDT 11/16/2024 9:33 AM EDT us Vero Mike MD LAB URINE ORDERABLES Final Resul t [facility] [address] [place] [address], * (ABNORMAL) Culture urine (11/15/2024 12:20 PM EDT) Culture, Urine >=100,000 CFU/mL Klebsiella pneumoniae ssp pneumoniae(A) ANA 11/18/2024 10:57 AM EDT [facility] Comment: This is an edited [...] MICROBIOLOGY - GENERAL ORDER ELIU Final Result [facility] H[facility] LAB [address] [place] [address], documented in this encounter Visit Diagnoses Diagnosis Altered mental status, unspecified documented in this encounter Care Teams Strategy Lead Relationship Specialty Start Date End Date Pascual Darnell MD [address] [place] [phone] PCP - General Internal Medicine 06/18/24 documented as of this encounter
== END 2025-01-05 11:51 | disposition home or self-care (01) ==
PROVIDERS: Visit Provider Orthopaedic Surgery
DX: S52.502A Unspecified fracture of the lower end of left radius, initial encounter for closed fracture (principal); S63.284A Dislocation of proximal interphalangeal joint of right ring finger, initial encounter; M66.242 Spontaneous rupture of extensor tendons, left hand; M05.9 Rheumatoid arthritis with rheumatoid factor, unspecified; E10.649 Type 1 diabetes mellitus with hypoglycemia without coma
CPT/HCPCS: 20550; 99214

== ENCOUNTER 2025-01-05 09:59 | Outpatient (REF) | payer OTHER, SELFPAY ==
--- NOTE | ~2025-01-05 | XR_ITS ---
EXAMINATION: XR WRIST, LEFT CLINICAL INFORMATION: M25.531 - Pain in left wrist COMPARISON: Radiographs on December 08, 2024 TECHNIQUE: PA, lateral, and oblique views of the left wrist. FINDINGS: Healing comminuted impacted fracture of the distal radius, with similar or minimally worsened dorsal tilting of the distal fragment. Mild progression of the associated callus formation. Healing comminuted impacted fracture of the distal ulna, with mild progression of the associated callus formation. Persistent widening of the scapholunate space. No new fractures. XR/XR wrist LT min 3V IMPRESSION: 1. Healing distal radial intra-articular impacted fracture with similar or minimally worsening of dorsal tilt. 2. Healing distal ulnar fracture. 3. Persistent widening of the scapholunate space suggestive of ligamentous tear Electronically signed by: Liz Moulton MD 01/05/2025 10:26 AM EDT
== END 2025-01-05 10:00 | disposition home or self-care (01) ==
LOC: HO.HOSX 09:59
PROVIDERS: Visit Provider Orthopaedic Surgery
DX: S63.284A Dislocation of proximal interphalangeal joint of right ring finger, initial encounter (principal); S52.502A Unspecified fracture of the lower end of left radius, initial encounter for closed fracture; M66.242 Spontaneous rupture of extensor tendons, left hand; M05.9 Rheumatoid arthritis with rheumatoid factor, unspecified; E10.649 Type 1 diabetes mellitus with hypoglycemia without coma; E10.65 Type 1 diabetes mellitus with hyperglycemia; Z79.899 Other long term (current) drug therapy; X58.XXXA Exposure to other specified factors, initial encounter
CPT/HCPCS: 20550; 73110; 99212; J1100; J2003

== ENCOUNTER → 2025-01-05 10:09 | Outpatient (BNV) | payer OTHER, SELFPAY | PROVIDERS: Visit Provider Radiology Body Imaging | DX: M25.532 Pain in left wrist (principal); S52.572D Other intraarticular fracture of lower end of left radius, subsequent encounter for closed fracture with routine healing; S52.602D Unspecified fracture of lower end of left ulna, subsequent encounter for closed fracture with routine healing | CPT/HCPCS: 73110 ==

== ENCOUNTER 2025-01-07 10:19 | Outpatient (AMB) | payer OTHER, SELFPAY ==
--- OUTSIDE RECORDS SUMMARY | 2025-01-04 09:30 | XMS_ITS | Encounter Summary ---
Author Organization [employer] Address [address] [place] [address] Care Team Providers Care Cook Cold Meat Name Role Phone Pascual Daly MD Primary Care Provide r Dasia Waters PharmD Unavailable [phone] Reason for Referral * Consultation (Routine) - Authorized Specialty Diagnoses / Procedures Referred By Contac t Referred To Contact Urology Diagnoses Mixed stress and urge urinary incontinence Pascual Daly MD [address] [place] [phone] Phone: tel: fax: [facility] Referral ID Status Reason Start Date Expiration Date Visits Requested Visits Authorized [id number] Authorized Specialty Services Required 01/04/2025 01/04/2026 1 1 Encounter Details Date Type Department Care Team (Latest Contact Info) Description 01/04/2025 9:30 AM EDT Office Visit [facility] MEDICINE [address] [place] [address] [phone] Pascual Daly MD [address] [place] [address] [phone] Hospital discharge follow-up (Primary Dx); Type 2 diabetes mellitus with right eye affected by mild nonproliferative retinopathy without macular edema, with long-term current use of insulin (CMS/HCC); Rheumatoid arthritis involving multiple sites with positive rheumatoid factor ([facility]/HCC); Major depressive disorder with psychotic features (CMS/HCC); [...] ear normal. Nose: Nose normal. Mouth/Throat: Lips: Keeler. Mouth: Mucous membranes are moist. Pharynx: Oropharynx [...] discharge follow-up - Primary Patient admitted [place] [facility] [place]11/08/24 - 11/10/24) S/P fall and head injury at the visit with hematology. Eventually admitted for head injury and wrist injury. Patient's 4th finger was dislocated, lip, nose, and forehead were lacerated. Physical Therapy recommended rehabilitation. Eventually discharged to [facility] for not meeting medical necessity for hospitalization. Instructed to follow up with orthopedics team. She was at [facility] from 11/10/24 - 12/17/24 Discharged home with medications and correction services. Instructed to follow up with PCP with us in 7 to 10 days. Today she feels fine, no complaints, has a follow up with orthopedics tomorrow Type 2 diabetes mellitus with right eye affected by mild nonproliferative retinopathy without macular edema, with long-term current use of insulin ([facility]) Pt here for a f/u She is under the care of Endocrinology last seen 11/08/2024 She is on: Tresiba 18 units Fiasp 100-151 unit 151-200 4 units 201-250 5 units 250-300 6 year Over 300 70 units She has a VNA at home. Hgb A1c 11/24/2024: 8.9 from 7.8 Eye exam done on: 12/2023 [facility] Dx with new [...] involving multiple sites with positive rheumatoid factor ([facility]) Under the care of Rheumatology on Actemra 162, last note 10/2023 Major depressive disorder with psychotic features ([facility]) Titi Gray retired She has a new Psychiatrist and a psychotherapist in [place] She tells me she is taking Effexor, [...] 01/17/2025 10:30 AM Dasia Waters PharmD MEDICINE [facility] 01/20/2025 10:30 AM Amanda Fernández RN [facility] MED [facility] 01/26/2025 9:00 AM Christian Winchester DDS [facility] 02/17/2025 10:15 AM Gabriela Gaitan ADLT DENT [facility] [1] Allergies Allergen Reactions Celecoxib Nausea Only [...] a new Psychiatrist and a psychotherapist in [place] She tells me she is taking Effexor, Klonopin and another one she cannot remember * Assessment & Plan Note - Pascual Terry MD - 01/04/2025 9:23 AM EDT Associated Problem(s): Rheumatoid arthritis involving multiple sites with positive rheumatoid factor ([facility]) Under the care of Rheumatology on Actemra 162, last note 10/2023 * Assessment & Plan Note - Pascual Terry MD - 01/04/2025 9:21 AM EDT Associated Problem(s): Type 2 diabetes mellitus with right eye affected by mild nonproliferative retinopathy without macular edema, with long-term current use of insulin ([facility]) Pt here for a f/u She is under the care of Endocrinology last seen 11/08/2024 She is on: Tresiba 18 units Fiasp 100-151 unit 151-200 4 units 201-250 5 units 250-300 6 year Over 300 70 units She has a VNA at home. Hgb A1c 11/24/2024: 8.9 from 7.8 Eye exam done on: 12/2023 [facility] Dx with new [...] Problem(s): Hospital discharge follow-up Patient admitted to [facility] [place] (11/08/24 [place] 11/10/24) S/P fall and head injury at the visit with hematology. Eventually admitted for head injury and wrist injury. Patient's 4th finger was dislocated, lip, nose, and forehead were lacerated. Physical Therapy recommended rehabilitation. Eventually discharged to [facility] for not meeting medical necessity for hospitalization. Instructed to follow up with orthopedics team. She was at [facility] from 11/10/24 - 12/17/24 Discharged home with medications and correction services. Instructed to follow up with PCP with us in 7 to 10 days. Today she feels fine, no complaints, has a follow up with orthopedics tomorrow documented in this encounter Plan of Treatment Upcoming Encounters Date Type Department Care Team (Late st Contact Info) Description 01/17/2025 10:30 AM EDT Medication Management [facility] MEDICINE [address] [place] [address] Dasia Waters, KristiD [address] [place] [address] 01/20/2025 10:30 AM EDT Clinical Support [facility] CHC MED & PEDS [address] [place] [address] Amanda Fernández, RN [address] [place] [address] 01/26/2025 9:00 AM EDT Office Visit [facility] ADULT DENTAL [address] [place] [address] Christian Winchester DDS [address] [place] [address] 02/17/2025 10:15 AM EDT Office Visit [facility] ADULT DENTAL [address] [place] [address] Gabriela Gaitan [address] [place] [address] Scheduled Referrals Name Type Priority Associated Diagnoses [...] edema, with long-term current use of insulin ([facility]) documented in this encounter Results * POCT Rapid Influenza A OSOM (01/04/2025 10:08 AM EDT) Rapid Influenza A Ag Negative Negative, Indeterminate QC Media Lot # [id number] Lot# Expiration Date ,,026 Swab Nasopharyngeal structure / Unknown 01/04/2025 10:08 AM EDT us Pascual Farfan Harrison MD POINT OF CARE TEST EN TER/EDIT ORDERABLES Final Result * POCT Rapid Covid-19 BALL ID NOW (01/04/2025 9:54 AM EDT) [facility] Coronavirus Antigen PCR Negative Negative, Indeterminate, None Detected, Invalid, Specimen unsatisfactory for evaluation, Weakly Positive, 2+ QC Media Lot # [id number] Lot# Expiration Date ,026 Swab 01/04/2025 9:54 AM EDT Pascual Terry MD POINT OF CARE TEST EN TER/EDIT ORDERABLES Final Result * POCT Rapid Influenza B BALL ID NOW (01/04/2025 9:54 AM EDT) [facility] Influenza B Negative Negative, Indeterminate [facility] QC Media Lot # [id number] [facility] Lot# Expiration Date [facility] Swab 01/04/2025 9:54 AM EDT Result [facility] Pascual Terry MD POINT OF CARE TEST EN TER/EDIT ORDERABLES Final Result [facility] [address] [place] [phone] * POCT Rapid Strep A BALL ID NOW (01/04/2025 9:51 AM EDT) [facility] Rapid Strep A Screen Negative Negative, None Detected QC Media Lot # [id number] Lot# Expiration Date ,026 Swab 01/04/2025 9:51 AM EDT Result [facility] Pascual Terry MD POINT OF CARE TEST EN TER/EDIT ORDERABLES Final Result * POCT Rapid Covid-19 BinaxNOW (01/04/2025 9:51 AM EDT) Rapid COVID Ag Negative QC Media Lot # [id number] Lot# Expiration Date , Swab 01/04/2025 9:51 AM EDT Pascual Terry MD POINT OF CARE TEST EN TER/EDIT ORDERABLES Final Result * POCT Glucose (01/04/2025 9:29 AM EDT) Glucose Blood, POC 182 60 - 200 mg/dL QC Media Lot # [id number] Lot# Expiration Date 530, Blood Capillary blood specimen / Unknown 01/04/2025 [...] documented as of this encounter Care Teams Cook Cold Meat Relationship Specialty Start Date End Date Pascual Daly MD [address] [place] [address] PCP - General Internal Medicine 02/22/14 Dasia Waters PharmD [address] [place] [address] Pharmacist Internal Medicine 08/16/24 Iker CORDERO 12/18/24 documented as of this encounter
--- NOTE | 2025-01-07 10:21 | MHC.OFFVIS ---
Vital Signs 01/07/25 10:22 Height 4 ft 11 in Weight 153 lb 3.54 oz BMI 30.9 BP 128/64 Blood Pressure Location Rt brachial Position Sitting Pulse 76 Pulse Source Pulse Oximeter Pulse Oximetry (%) 99 Oxygen Delivery Method Room Air Intake Visit Reasons: T1DM Intake Note: Patient present today for Type 1 Diabetes Mellitus Last Diabetic eye exam: Patient is unsure of the date but it was within the month. Last Podiatry Visit: Last exam was on 11/2024 Random Glucose: 101 mg/dl HgA1C: 8.3% Family Medicine Physician Required: Yes Family Medicine Physician Language: Line Runner Services: Family Medicine Physician Present Family Medicine Physician Name: Emilie compliance spec service Information Interpreted: non-clinical & clinical Accompanied by: APPLICATION SUPPORT CONSULTANT Allergies lorazepam (LORAZEPAM) Allergy (Severe, Verified 01/07/25 10:28) DELIRIUM celecoxib (From Celebrex) Allergy (Intermediate, Verified 01/07/25 10:28) ITCHING tramadol (TRAMADOL) Allergy (Intermediate, Verified 01/07/25 10:28) ITCHING zolpidem (Ambien) Allergy (Unknown, Verified 01/07/25 10:28) unknown Medication List - Last Reconciled 01/07/25 by Cindi Guevara MD acetaminophen 650 mg (2 x 325 mg) PO Q6H PRN Actemra ACTPen (tocilizumab) 162 mg (0.9 mL) subcut Q2W NS albuterol sulfate 90 mcg/actuation 2 puffs inhalation Q4-6H PRN albuterol sulfate 2.5 mg (3 mL) inhalation Q3H PRN amlodipine 10 mg PO DAILY aripiprazole 20 mg PO DAILY atorvastatin 20 mg PO DAILY bisacodyl 10 mg (2 x 5 mg) PO BEDTIME blood sugar diagnostic (FreeStyle Lite Strips) TEST BLOOD SUGAR 8 TIMES EVERY DAY blood-glucose meter (FreeStyle Lite Meter kit) As directed blood-glucose sensor (Fyreball G7 Sensor device) As directed every 10 days calcium citrate 400 mg (2 x 200 mg (950 mg)) PO BID carvedilol 6.25 mg PO BID cholecalciferol (vitamin D3) (Vitamin D3) 50 mcg PO DAILY clonazepam 1 tab PO Q8H PRN clopidogrel 75 mg PO DAILY esomeprazole magnesium 40 mg PO DAILY@0630 folic acid 1 mg PO DAILY gabapentin 100 mg PO BID glucagon 3 mg/actuation (Baqsimi) 3 mg intranasal ONCE PRN 30 days insulin aspart (niacinamide) 100 unit/mL (3 mL) (Fiasp FlexTouch U-100 Insulin) See Protocol units subcut TIDAC insulin degludec (Tresiba FlexTouch U-100 insulin) 8 units subcut DAILY insulin syringe-needle U-100 (BD Insulin Syringe Ultra-Fine) As directed 3 times per day levothyroxine 125 mcg PO DAILY@0600 linaclotide (Linzess) 145 mcg PO DAILY losartan 100 mg PO DAILY melatonin 3 mg PO BEDTIME nebulizers As directed ondansetron 4 mg PO Q8H PRN oxycodone 5 mg PO Q12H PRN pen needle, diabetic (Pentips Pen Needle) USE FIVE TIMES DAILY prazosin 6 mg PO BEDTIME simethicone (Gas Relief (simethicone)) 125 mg PO QID PRN venlafaxine ER 75 mg PO DAILY zinc gluconate 30 mg PO DAILY HPI Comments Details: 74-year-old female with DM type 1 diagnosed at 40 years of age, initially thought to have type 2 diabetes, who presents for management of diabetes. Here with APPLICATION SUPPORT CONSULTANT Gabriela Evans Last seen 11/08/2024 Interval history We have been actively titrating her insulin upward so that she can get cleared for trigger finger release surgery. A1c POC 09/07/2024 7.6%. POC 01/07/2025 8.3% Severe hypoglycemic event: She does report a history of hypoglycemic coma in the past. 2023 she dropped her sugar to the 20s. Current regimen: She reports using her insulin prior to meals without fail. Tresiba 18 units daily in AM Breakfast dosing Fiasp 80-100 5 units 101-200 8 units 151-200 9 units 201-250 10 units 251 -300 11 units Over 300 12 units Lunch and supper 80-100 9 units 101-150 10 units 151-200 11 units 201-250 12 units 250-300 12 units over 300 lunch 14 units supper 12 units Dexcom downloaded from December 25 to 01/07/2025 Average glucose 266 mg/dL G [place] 9.7% Time active 86% Coefficient of variation 26.3% Within target range 8% High 35% Very high 57% Low 0% Very low 0% Interpretation: Running hyperglycemic at least 150 points above target range for both fasting as well as postprandial hyperglycemia. Micro complications: Ophthalmology evaluation: last eye exam 07/13 last Podiatry Visit: 08/2024 No neuropathy Symptoms reported: denies numbness, tingling, cramping in lower extremities sees Dr Ernandez macrovascular complications: CAD Other specialists: adult probation officer, neurologist, Dr. Tang Hypoglycemia: reports hypoglycemia once in the past month mild at night takes snack before bedtime every night Exercise: denies LDL 46 mg/dl 11/12, on atorvastatin 20 mg daily urine microalbumin /creatinign 06/14 elevated at 36 Exercise: denies Oil Winterizer - CDE education: in past Hypothyroidism Currently on levothyroxine 125 mcg daily Last set of labs from July 2024 showed TSH was elevated at 21 with a low free T4 I She did not do labs prior to this visit Has osteoporosis, managed by Rheumatology, on bisphosphonate therapy Physical exam General: sitting comfortably in no acute distress HEENT: normocephalic/atraumatic, Cardiac: normal heart sounds Pulm: normal breath sounds B/L, no added breath sounds Abd: not distended, no tenderness Extremities: no edema, no signs of myxedema Neuro: AAO x3, Speech: normal, no facial droop, moving all 4 extremities Laboratory Tests 05/06/18 09/11/19 05/03/20 09:00 08:03 11:35 Creatinine Estimated GFR Calcium Ionized Calcium Phosphorus AST ALT Alkaline Phosphatase Albumin 25-OH Vitamin D Total 29.7 40.4 TSH Free T4 PTH Intact 110 H 82 H Ur Creatinine 24 Hour 0.61 Urine Creatinine Urine Microalbumin Microalb/Creat Ratio Ur Calcium 24 Hr 69 Calcium/Creat 24 Hr 114 07/17/21 10/04/21 11/29/21 10:32 10:15 11:23 Creatinine Estimated GFR Calcium Ionized Calcium Phosphorus AST ALT Alkaline Phosphatase Albumin 3.7 3.2 L 3.9 D 25-OH Vitamin D Total 47.1 TSH Free T4 PTH Intact Ur Creatinine 24 Hour Urine Creatinine Urine Microalbumin Microalb/Creat Ratio Ur Calcium 24 Hr Calcium/Creat 24 Hr 12/19/21 03/29/22 09/27/22 10:32 10:45 10:15 Creatinine Estimated GFR Calcium Ionized Calcium Phosphorus AST ALT Alkaline Phosphatase Albumin 3.7 3.9 3.8 25-OH Vitamin D Total 40.9 TSH Free T4 PTH Intact 72 Ur Creatinine 24 Hour Urine Creatinine Urine Microalbumin Microalb/Creat Ratio Ur Calcium 24 Hr Calcium/Creat 24 Hr 10/08/22 01/10/23 01/15/23 11:23 12:12 11:08 Creatinine Estimated GFR Calcium Ionized Calcium Phosphorus AST ALT Alkaline Phosphatase Albumin 3.9 3.5 25-OH Vitamin D Total 41.0 TSH Free T4 PTH Intact 61 Ur Creatinine 24 Hour Urine Creatinine Urine Microalbumin Microalb/Creat Ratio Ur Calcium 24 Hr Calcium/Creat 24 Hr 03/25/23 04/16/23 05/12/23 10:16 11:33 10:40 Creatinine Estimated GFR Calcium Ionized Calcium Phosphorus AST ALT Alkaline Phosphatase Albumin 3.7 3.9 3.9 25-OH Vitamin D Total TSH Free T4 PTH Intact Ur Creatinine 24 Hour Urine Creatinine Urine Microalbumin Microalb/Creat Ratio Ur Calcium 24 Hr Calcium/Creat 24 Hr 05/15/23 07/02/23 08/13/23 09:54 10:06 10:26 Creatinine Estimated GFR Calcium Ionized Calcium Phosphorus AST ALT Alkaline Phosphatase Albumin 3.8 3.9 25-OH Vitamin D Total TSH Free T4 PTH Intact Ur Creatinine 24 Hour Urine Creatinine 163.81 Urine Microalbumin 59.0 Microalb/Creat Ratio 36.0 H Ur Calcium 24 Hr Calcium/Creat 24 Hr 09/09/23 10/16/23 10/27/23 12:13 11:41 08:45 Creatinine Estimated GFR Calcium Ionized Calcium Phosphorus AST ALT Alkaline Phosphatase Albumin 3.5 3.8 3.8 25-OH Vitamin D Total 52.7 TSH Free T4 PTH Intact 55.2 Ur Creatinine 24 Hour Urine Creatinine Urine Microalbumin Microalb/Creat Ratio Ur Calcium 24 Hr Calcium/Creat 24 Hr 10/31/23 02/17/24 05/10/24 10:42 10:20 10:41 Creatinine Estimated GFR Calcium 8.7 8.9 Ionized Calcium Phosphorus AST ALT Alkaline Phosphatase Albumin 3.6 3.6 3.8 25-OH Vitamin D Total 38 51.7 TSH Free T4 PTH Intact 383.0 H Ur Creatinine 24 Hour Urine Creatinine Urine Microalbumin Microalb/Creat Ratio Ur Calcium 24 Hr Calcium/Creat 24 Hr 06/15/24 06/15/24 06/15/24 11:09 11:09 11:09 Creatinine Estimated GFR Calcium 9.5 9.5 D Ionized Calcium 5.3 Phosphorus 4.0 AST ALT Alkaline Phosphatase Albumin 4.0 4.0 25-OH Vitamin D Total 44.2 TSH 4.36 H Free T4 0.96 PTH Intact 101.8 H Ur Creatinine 24 Hour Urine Creatinine Urine Microalbumin Microalb/Creat Ratio Ur Calcium 24 Hr Calcium/Creat 24 Hr 08/16/24 10/28/24 09:24 10:04 Creatinine 1.13 Estimated GFR 47 Calcium 8.7 D 9.0 Ionized Calcium Phosphorus AST 37 H ALT 43 H Alkaline Phosphatase 73 Albumin 4.0 4.2 25-OH Vitamin D Total 78.0 TSH 21.47 H Free T4 0.60 L PTH Intact 187.5 H Ur Creatinine 24 Hour Urine Creatinine Urine Microalbumin Microalb/Creat Ratio Ur Calcium 24 Hr Calcium/Creat 24 Hr [facility] Medical History Heart palpitations Hypoglycemia due to insulin Elevated parathyroid hormone Osteoporosis Hyperlipidemia (04/21/1959) Depressive disorder (04/21/1959) Nutritional anemia (04/21/1959) Shortness of breath Hypothyroidism (04/21/1959) Anemia Chronic gastritis NSTEMI (non-ST elevated myocardial infarction) Recurrent falls (12/04/11) Iron deficiency anemia (04/21/1959) Fibromyositis (04/21/1959) Eczema (04/21/1959) High risk medication use Hepatitis C antibody positive in blood Screening for osteoporosis Screening for viral disease Joint swelling Overweight (BMI 25.0-29.9) Neck pain Swelling of knee joint, right Intra-abdominal abscess Diabetes Elevated liver function tests Intestinal malabsorption following gastrectomy Obesity (BMI 30-39.9) 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 Hypertension Cholecystitis Hyperlipidemia, unspecified Essential hypertension Atherosclerotic cardiovascular disease Fibromyalgia Folliculitis Anxiety Depression History of myocardial infarction Diabetes type 1, uncontrolled 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 Mother CVA (cerebral vascular accident) Sister Hypertension Brother Hypertension Liver cancer Social History Household Members: None Housing: Apartment Are you a primary early breastfeeding care specialist to a significant other at home: No Do you presently have visiting nurse or other home services: Yes Unable to assess alcohol history related to: Unable to respond Alcohol intake: never Patient Tobacco Use Status: Never used Tobacco Advance Directives Date on File: 09/17/23 service: No Current occupational status: disabled Current occupation: right hand dominant Physical Exam Vital Signs: Last Vital Signs Pulse 76 01/07/25 10:22 BP 128/64 01/07/25 10:22 Pulse Ox 99 01/07/25 10:22 Oxygen Delivery Method Room Air 01/07/25 10:22 BMI result Body Mass Index 30.9 Office Procedures Glucose Monitoring Details Details: See HPI 03918 - Glucose monitoring, continuous-physician I&R Procedure code (CPT) selection complete Results AMB Hemoglobin A1c AMB Hemoglobin A1c 8.3 % Last Edit by RADHA Menendez on 01/07/25 10:42 Results Reviewed Results Reviewed: Laboratory Last Values Glucose (Clinic) 101 mg/dL (60-115) 01/07/25 10:30 Hgb A1c (Clinic) 8.3 % (4.0-6.0) H 01/07/25 10:35 Assessment & Plan Assessment & Plan (1) Diabetes type 1, uncontrolled: Comment: Doses of Tresiba over 19 units cause am lows! Code(s): E10.65 - Type 1 diabetes mellitus with hyperglycemia Category: Medical Qualifiers: Glycemic state: with hypoglycemia Coma presence: without coma Qualified Code(s): E10.649 - Type 1 diabetes mellitus with hypoglycemia without coma Plan: 74-year-old type 1 diabetic with history of hypoglycemia in the past very sensitive to insulin. A1c is worsened to 8.3% POC 01/07/2025 which is up from 7.6% in August 2024, when I look at her CGM data Dexcom data downloaded over the past 2 weeks she is only in target range about 8% of the time and mostly running high. Both postprandial hyperglycemia as well as fasting hyperglycemia. She did get a steroid shot in her finger for trigger finger this week which are also leading to hyperglycemia. Per Vashti Watts APRN Would not recommend any changes to this patient's Tresiba higher than the 19 unit she is taking as dose escalation in the past has caused significant hypoglycemia. I will just up titrate her insulin by small amounts. Last visit I had asked her to increase her Tresiba but she did not make the change. She only made the changes to her scale per patient. old dosing: Tresiba 18 units Breakfast dosing Fiasp 80-100 5 units 101-200 8 units 151-200 9 units 201-250 10 units 251 -300 11 units Over 300 12 units Lunch and supper 80-100 9 units 101-150 10 units 151-200 11 units 201-250 12 units 250-300 12 units over 300 lunch 14 units supper 12 units New dosing Tresiba 20 units daily Breakfast dosing Fiasp 80-100 5 units 101-200 8 units 151-200 10 units 201-250 12 units 251 -300 12 units Over 300 12 units Lunch and supper 80-100 10 units 101-150 10 units 151-200 12 units 201-250 14 units 250-300 14 units over 300 lunch 14 units Plan: -insulin uptitrated as above -needs repeat urine microalbumin, kidney function, this was ordered last visit, again told patient to do this. -up-to-date with eye visit, I am not sure if she has a history of retinopathy? -Up-to-date with Podiatry visit The patient had an opportunity to ask questions regarding treatment plan. The patient expressed understanding and agreement with the above treatment plan. The patient is aware they should contact our office by phone for worsening glucose readings or for any low blood sugars which may warrant a change in diabetes medication. Compliance is encouraged with medications and any followup testing/consults which may have been ordered. 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 She is compliant with taking medication every day on an empty stomach. At that time TSH was elevated at 21 Patient did not do TSH, free T4 ordered last visit, can told her to do this Plan I spent 30 minutes in reviewing the record, seeing the patient and documenting in the medical record. Orders: Orders AMB Hemoglobin A1c Today E10.649 - Type 1 diabetes mellitus with hypoglycemia without coma, Z13.9 - Encounter for screening, unspecified AMB Glucose Monitoring Today E10.649 - Type 1 diabetes mellitus with hypoglycemia without coma Medications: Changed From insulin aspart (niacinamide) 100 unit/mL (3 mL) (Fiasp FlexTouch U-100 Insulin) See Protocol subcut TIDAC To Fiasp FlexTouch U-100 Insulin 100 unit/mL (3 mL) (insulin aspart (niacinamide)) Breakfast dosing Fiasp 80-100 5 units 101-200 8 units 151-200 10 units 201-250 12 units 251 -300 12 units Over 300 12 units Lunch and supper 80-100 10 units 101-150 10 units 151-200 12 units 201-250 14 units 250-300 14 units over 300 lunch 14 units See Protocol subcut TIDAC 15 mL 5RF NS From insulin degludec (Tresiba FlexTouch U-100 insulin) 8 units subcut DAILY To insulin degludec (Tresiba FlexTouch U-100 insulin) 20 units (0.2 mL) subcut DAILY 15 mL 3RF Refilled blood-glucose meter (FreeStyle Lite Meter kit) As directed 1 ea 0RF E10.65 - Type 1 diabetes mellitus with hyperglycemia Patient Instructions: Tresiba 20 units daily Breakfast dosing Fiasp 80-100 5 units 101-200 8 units 151-200 10 units 201-250 12 units 251 -300 12 units Over 300 12 units Lunch and supper 80-100 10 units 101-150 10 units 151-200 12 units 201-250 14 units 250-300 14 units over 300 lunch 14 units Do fasting blood and urine test before next visit Tresiba 20 unidades diarias Dosis de desayuno Fiasp 80-100 5 unidades 101-200 8 unidades 151-200 10 unidades 201-250 12 unidades 251-300 12 unidades M?s de 300 12 unidades Almuerzo y energy sales consultant 80-100 10 unidades 101-150 10 unidades 151-200 12 unidades 201-250 14 unidades 250-300 14 unidades M?s de 300 almuerzo 14 unidades Realice un an?lisis de ivy y orina en ayunas antes de la pr?xima visita. 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
[2025-01-07 10:22] VITALS: BP 128/64; PULSE 76; O2SAT 99; BMI 30.9
[2025-01-07 10:36] LABS: Glucose, Whole Blood 101 mg/dL (60-115)
--- OUTSIDE RECORDS SUMMARY | 2025-01-07 10:52 | XMS_ITS | Encounter Summary ---
Author Organization [employer] Address [address] [facility] [address] [place] [address] Care Team Providers Care Steam Turbine Operator Name Role Phone Pascual Daly MD Primary Care Provide r Fani Heck PharmD Unavailable + Dasia Waters PharmD Unavailable [phone] Reason for Visit * Reason Comments Med Refill Encounter Details Date Type Department Care Team ([facility] st Contact Info) Description 09/26/2023 Refill [facility] [address] [place] [address] Pascual Daly MD [address] [place] [address] Social History Tobacco Use Types Packs/Day Years [...] Description 01/17/2025 10:30 AM EDT Medication Management [facility] [address] [place] [id number] Dasia Waters, PharmD [address] [place] [address] 01/20/2025 10:30 AM EDT Clinical Support [facility] [address] [place] [address] Amanda Fernández, RN [address] [place] [address] 01/26/2025 9:00 AM EDT Office Visit [facility] [address] [place] [phone] Christian Winchester DDS [address] [place] [address] 02/17/2025 10:15 AM EDT Office Visit [facility] [address] [place] [address] Gabriela Gaitan [address] [place] [address] documented as of this encounter Goals Goal [...] as of this encounter Care Teams Steam Turbine Operator Relationship Specialty Start Date End Date Pascual Daly MD [address] [place] [address] PCP - General Internal Medicine 02/22/14 Fani Heck, PharmD [address] [place] [address] Pharmacist Internal Medicine 12/16/22 08/15/24 Dasia Waters, KristiD [address] [place] [address] Pharmacist Internal Medicine 08/16/24 Iker MARCUSA 12/18/24 documented as of this encounter
--- OUTSIDE RECORDS SUMMARY | 2025-01-07 10:52 | XMS_ITS | Encounter Summary ---
Author Organization [employer] Address [address] [facility] [address] [place] [address] Care Team Providers Care Wad Compressor Operator Adjuster Name Role Phone Pascual Daly MD Primary Care Provide r Fani Heck PharmD Unavailable [phone] Dasia Waters PharmD Unavailable [phone] Encounter Details Date Type Department Care Team (Late st Contact Info) Description 09/25/[address] [facility] [address] [place] [address] Pascual Daly MD [address] [place] [address] Social History Tobacco Use Types Packs/Day Years [...] 01/17/2025 10:30 AM EDT Medication Management [facility] [address] [place] [address] Dasia Waters, PharmD [address] [place] [address] 01/20/2025 10:30 AM EDT Clinical Support [facility] [address] [place] [address] Amanda Fernández, RN [address] [place] [address] 01/26/2025 9:00 AM EDT Office Visit [facility] [address] [place] [address] Christian Winchester DDS [address] [place] [address] 02/17/2025 10:15 [address] EDT Office [address] [facility] [address] [place] [address] Gabriela Gaitan [address] [place] [address] documented as of this encounter Goals Goal Patient Goal Type Associated Problems Recent Progress Patient-Stated? Author Blood Pressure < 140/90 Blood Pressure 126/59( 025 9:28 AM EDT) No Fani Heck, Woody documented as of this encounter Visit Diagnoses Diagnosis Type 2 diabetes mellitus without complication, with long-term current use of insulin ([facility]) documented in this encounter Additional Health Concerns Assessment Noted Time PHQ-9 Depression Total Score: 11 024 10:24 AM EST documented as of this encounter Care Teams Wad Compressor Operator Adjuster Relationship Specialty Start Date End Date Pascual Daly MD [address] [place] [phone] PCP - General Internal Medicine 02/22/14 Fani Heck, KristiD [address] [place] [address] Pharmacist Internal Medicine 12/16/22 08/15/24 Dasia Waters PharmD [address] [place] [phone] Pharmacist Internal Medicine 08/16/24 Iker CORDERO 12/18/24 documented as of this encounter
--- OUTSIDE RECORDS SUMMARY | 2025-01-07 10:52 | XMS_ITS | Encounter Summary ---
Author Organization [employer] Address [address] [facility] 7[address] [place] [address] Care Team Providers Care Radiotelegraph Operator Name Role Phone Pascual Daly MD Primary Care Provide r Fani Heck PharmD Unavailable + Dasia Waters PharmD Unavailable [phone] Reason for Visit * Reason Comments Med Refill Encounter Details Date Type Department Care Team (Late st Contact Info) Description 07/20/2023 Refill [facility] [address] [place] [address] Titi Gray FNP Major depressive disorder with [...] Description 01/17/2025 10:30 AM EDT Medication Management [facility] [address] [place] [address] Dasia Waters, KristiD [address] [place] [address] 01/20/2025 10:30 AM EDT Clinical Support [facility] [address] [place] [address] Amanda Fernández, RN [address] [place] [address] 01/26/2025 9:00 AM EDT Office Visit [facility] [address] [place] [address] Christian Winchester DDS [address] [place] [address] 02/17/2025 10:15 AM EDT Office Visit [facility] [address] [place] [address] Gabriela Gaitan [address] [place] [address] documented as of this encounter Goals Goal [...] documented as of this encounter Care Teams Radiotelegraph Operator Relationship Specialty Start Date End Date Pascual Daly MD [address] [place] [address] PCP - General Internal Medicine 02/22/14 Fani Heck, PharmD [address] [place] [address] Pharmacist Internal Medicine 12/16/22 08/15/24 Dasia Waters PharmD [address] [place] [address] Pharmacist Internal Medicine 08/16/24 Iker VNA 12/18/24 documented as of this encounter
--- OUTSIDE RECORDS SUMMARY | 2025-01-07 10:52 | XMS_ITS | Encounter Summary ---
Author Organization [employer] Address 75 [facility] 7t [place] [address] Care Team Providers Care Dowel Pin Worker Name Role Phone Pascual Daly MD Primary Care Provide r Dasia Waters PharmD Unavailable [phone] Reason for Visit * Reason Onset Date Comments Med Refill 08/31/2024 Encounter Details Date Type Department Care Team ([facility] st Contact Info) Description 08/31/2024 Telephone [facility] MEDICINE [address] [place] [address] Pascual Daly MD 230 [place] [address] Med Refill Social History Tobacco Use Types [...] immediate release tablet To be sent to: [facility] documented in this encounter Plan of Treatment Upcoming Encounters Date Type Department Care Team (Late st Contact Info) Description 01/17/2025 10:30 AM EDT Medication Management [facility] [address] [place] [address] Dasia Waters, PharmD 230 [place] [address] 01/20/2025 10:30 AM EDT Clinical Support [facility] CHC MED & PEDS 505 [place] [address] Amanda Fernández, RN 505 [place] [address] 01/26/2025 9:00 AM EDT Office Visit [facility] ADULT DENTAL [address] [place], [place] [phone] Christian Winchester DDS 230 [place], [place] [phone] 02/17/2025 10:15 AM EDT Office Visit [facility] ADULT DENTAL 230 [place], [place] [phone] Gabriela Gaitan 230 [place], [place] [phone] documented as of this encounter Goals Goal [...] documented as of this encounter Care Teams Dowel Pin Worker Relationship Specialty Start Date End Date Pascual Daly MD 230 [place], [place] [phone] PCP - General Internal Medicine 02/22/14 Dasia Waters PharmD [address] [place] [address] [phone] Pharmacist Internal Medicine 08/16/24 Iker MARCUSA 12/18/24 documented as of this encounter
--- OUTSIDE RECORDS SUMMARY | 2025-01-07 10:52 | XMS_ITS | Encounter Summary ---
Author Organization [employer] Address 75 [facility] 7t [place] [address] Care Team Providers Care Sap Treasury Consultant Name Role Phone Pascual Daly MD Primary Care Provide r Fani Heck PharmD Unavailable [phone] Dasia Waters PharmD Unavailable [phone] Encounter Details Date Type Department Care Team (Late st Contact Info) Description 09/25/2023 Telephone [facility] MEDICINE 230 [place] [address] Pascual Daly MD 230 [place] [address] Social History Tobacco Use Types Packs/Day Years [...] 01/17/2025 10:30 AM EDT Medication Management [facility] MEDICINE 230 [place] [address] Dasia Waters, PharmD [address] [place] [address] 01/20/2025 10:30 AM EDT Clinical Support [facility] CHC MED & PEDS 505 [place] [address] Amanda Fernández, RN 505 [place] [address] 01/26/2025 9:00 AM EDT Office Visit [facility] ADULT DENTAL 230 [place] [address] Christian Winchester DDS 230 [place] [address] 02/17/2025 10:15 AM EDT Office Visit [facility] ADULT DENTAL 230 [place] [address] Gabriela Gaitan 230 [place] [address] documented as of this encounter Goals Goal [...] documented as of this encounter Care Teams Sap Treasury Consultant Relationship Specialty Start Date End Date Pascual Daly MD 230 [place] [address] PCP - General Internal Medicine 02/22/14 aFni Heck, PharmD [address] [place] [address] Pharmacist Internal Medicine 12/16/22 08/15/24 Dasia Waters PharmD [address] [place] [address] Pharmacist Internal Medicine 08/16/24 Iker VNA 12/18/24 documented as of this encounter
--- OUTSIDE RECORDS SUMMARY | 2025-01-07 10:52 | XMS_ITS | Encounter Summary ---
Author Organization [employer] Address 75 [facility] 7t [place] [address] Care Team Providers Care Lot Attendant Name Role Phone Pascual Daly MD Primary Care Provide r Fani Heck PharmD Unavailable [phone] Dasia Waters PharmD Unavailable [phone] Reason for Visit * Reason Comments Med Refill Encounter Details Date Type Department Care Team (Late Contact Info) Description 10/02/[address] [facility] MEDICINE 230 [place], [place] [phone] Titi Gray FNP Major depressive disorder with [...] [facility] 230 [place], [place] [phone] Dasia Waters PharmD 230 [place], [place] [phone] 01/20/2025 10:30 AM EDT Clinical Support [facility] CHC MED & PEDS 505 [place], [place] [phone] Amanda Fernández, RN 505 [place], [place] 01/26/2025 9:00 AM EDT Office Visit [facility] ADULT DENTAL 230 [place] [address] Christian Winchester DDS 230 [place] [address] 02/17/2025 10:15 AM EDT Office Visit [facility] ADULT DENTAL 230 [place] [address] Gabriela Gaitan 230 [place] [address] documented as of this encounter Goals Goal [...] documented as of this encounter Care Teams Lot Attendant Relationship Specialty Start Date End Date Pascual Daly MD [address] [place] [address] PCP - General Internal Medicine 02/22/14 Fani Heck, PharmD [address] [place] [address] Pharmacist Internal Medicine 12/16/22 08/15/24 Dasia Waters, PharmD [address] [place] [address] Pharmacist Internal Medicine 08/16/24 Iker CORDERO 12/18/24 documented as of this encounter
--- OUTSIDE RECORDS SUMMARY | 2025-01-07 10:52 | XMS_ITS | Encounter Summary ---
Author Organization [employer] Address 75 [facility] 7t [place] [address] Care Team Providers Care Staff Radiation Therapist Name Role Phone Pascual Daly MD Primary Care Provide r Dasia Waters PharmD Unavailable [phone] Reason for Visit * Reason Onset Date Comments Med Refill 09/30/2024 Encounter Details Date Type Department Care Team ([facility] st Contact Info) Description 09/30/2024 Telephone [facility] MEDICINE 230 [place] [address] Pascual Daly MD 230 [place] [address] Med Refill Social History Tobacco Use Types [...] encounter Miscellaneous Notes * Telephone Encounter - Hafas Camacho - 09/30/2024 8:56 AM EDT TC from pt requesting medication refill. Medications needing refill : oxyCODONE (Roxicodone) 5 MG immediate release tablet To be sent to: [facility] documented in this encounter Plan of Treatment Upcoming Encounters Date Type Department Care Team (Late st Contact Info) Description 01/17/2025 10:30 AM EDT Medication Management [facility] MEDICINE 230 [place] [address] Dasia Waters, PharmD 230 [place] [address] 01/20/2025 10:30 AM EDT Clinical Support [facility] CHC MED & PEDS 505 [place] [address] Amanda Fernández, RN 505 [place] [address] 01/26/2025 9:00 AM EDT Office Visit [facility] ADULT DENTAL 230 [place], [place] [phone] Christian Winchester DDS 230 [place], [place] [phone] 02/17/2025 10:15 AM EDT Office Visit [facility] ADULT DENTAL 230 [place], [place] [phone] Gabriela Gaitan 230 [place], [place] [phone] documented as of this encounter Goals Goal [...] documented as of this encounter Care Teams Staff Radiation Therapist Relationship Specialty Start Date End Date Pacsual Daly MD 230 [place], [place] [phone] PCP - General Internal Medicine 02/22/14 Dasia Waters PharmD [address] [place] [address] [phone] Pharmacist Internal Medicine 08/16/24 Iekr MARCUSA 12/18/24 documented as of this encounter
--- OUTSIDE RECORDS SUMMARY | 2025-01-07 10:52 | XMS_ITS | Encounter Summary ---
Author Organization [employer] Address 75 [facility] 7t [place] [address] Care Team Providers Care Contact Lens Flashing Puncher Name Role Phone Pascual Daly MD Primary Care Provide r Fani Heck PharmD Unavailable [phone] Dasia Waters PharmD Unavailable [phone] Reason for Visit * Reason Comments Med Refill Encounter Details Date Type Department Care Team ([facility] st Contact Info) Description 03/27/2023 Refill [facility] CHC MED & PEDS [address] [place], [place] [phone] Titi Gray FNP Major depressive disorder with [...] Medication Management [facility] MEDICINE 230 [place] [address] Dasia Waters, PharmD 230 [place] [address] 01/20/2025 10:30 AM EDT Clinical Support [facility] CHC MED & PEDS 505 [place] [address] Amanda Fernández, RN 505 [place] [address] 01/26/2025 9:00 AM EDT Office Visit [facility] ADULT DENTAL 230 [place] [address] Christian Winchester DDS [address] [place] [address] 02/17/2025 10:15 AM EDT Office Visit [facility] ADULT DENTAL 230 [place] [address] Gabriela Gaitan 230 [place] [address] documented as of this encounter Goals Goal [...] as of this encounter Care Teams Contact Lens Flashing Puncher Relationship Specialty Start Date End Date Pascual Daly MD [address] [place] [address] PCP - General Internal Medicine 02/22/14 Fani Heck, PharmD [address] [place] [address] Pharmacist Internal Medicine 12/16/22 08/15/24 Dasia Waters PharmD [address] [place] [address] Pharmacist Internal Medicine 08/16/24 Iker VNA 12/18/24 documented as of this encounter
--- OUTSIDE RECORDS SUMMARY | 2025-01-07 10:52 | XMS_ITS | Encounter Summary ---
Author Organization [employer] Address 75 [facility] 7t [place] [address] Care Team Providers Care Small Animal Veterinarian Name Role Phone Pascual Daly MD Primary Care Provide r Fani Heck PharmD Unavailable [phone] Dasia Waters PharmD Unavailable [phone] Reason for Visit * Reason Comments Med Refill Encounter Details Date Type Department Care Team (Late st Contact Info) Description 08/26/2023 Refill [facility] 230 [place], [place] [phone] Momo Rizo MD 230 [place], [place] [phone] Benign hypertension Social History Tobacco Use Types [...] 01/17/2025 10:30 AM EDT Medication Management [facility] MEDICINE 230 [place] [address] Dasia Waters, PharmD 230 [place] [address] 01/20/2025 10:30 AM EDT Clinical Support [facility] CHC MED & PEDS 505 [place] [address] Amanda Fernández, RN 505 [place] [address] 01/26/2025 9:00 AM EDT Office Visit [facility] ADULT DENTAL [address] [place] [address] Christian Winchester DDS 230 [place] [address] 02/17/2025 10:15 AM EDT Office Visit [facility] ADULT DENTAL 230 [place] [address] Gabriela Gaitan 230 [place] [address] documented as of this encounter Goals Goal [...] documented as of this encounter Care Teams Small Animal Veterinarian Relationship Specialty Start Date End Date Pascual Daly MD 230 [place] [address] PCP - General Internal Medicine 02/22/14 Fani Heck, PharmD [address] [place] [address] Pharmacist Internal Medicine 12/16/22 08/15/24 Dasia Waters PharmD 230 [place] [address] Pharmacist Internal Medicine 08/16/24 Iker MARCUSA 12/18/24 documented as of this encounter
--- OUTSIDE RECORDS SUMMARY | 2025-01-07 10:52 | XMS_ITS | Encounter Summary ---
Author Organization [employer] Address 75 [facility] 7t [place] [address] Care Team Providers Care Pvc Monitor Name Role Phone Pascual Daly MD Primary Care Provide r Fani Heck PharmD Unavailable [phone] Dasia Waters PharmD Unavailable [phone] Reason for Visit * Reason Onset Date Comments Appointment Request 09/03/2022 Encounter Details Date Type Department Care Team ([facility] st Contact Info) Description 09/03/2022 Telephone [facility] MEDICINE 230 [place], [place] [phone] Pascual Daly MD 230 [place], [place] [phone] Appointment Request Social History Tobacco Use Types [...] Management [facility] MEDICINE [address] [place] [address] Dasia Waters PharmD 230 [place] [address] 01/20/2025 10:30 AM EDT Clinical Support [facility] CHC MED & PEDS 505 [place] [address] Amanda Fernández, RN 505 [place] [address] 01/26/2025 9:00 AM EDT Office Visit [facility] ADULT DENTAL 230 [place] [address] Christian Winchester DDS [address] [place] [address] 02/17/2025 10:15 AM EDT Office Visit [facility] ADULT DENTAL 230 [place] [address] Gabriela Gaitan [address] [place] [address] documented as of this encounter Goals Goal [...] documented as of this encounter Care Teams Pvc Monitor Relationship Specialty Start Date End Date Pascual Daly MD 230 [place] [address] PCP - General Internal Medicine 02/22/14 Fani Heck, KristiD [address] [place] [address] Pharmacist Internal Medicine 12/16/22 08/15/24 Dasia Waters PharmD [address] [place] [address] Pharmacist Internal Medicine 08/16/24 Iker MARCUSA 12/18/24 documented as of this encounter
--- OUTSIDE RECORDS SUMMARY | 2025-01-07 10:52 | XMS_ITS | Clinical Summary ---
Author Organization 175 [facility] Address 175 [place] [address] Phone Care Team Providers Care Continuous Process Rotary Drum Tanner Name Role Phone Pascual Darnell MD Primary Care Provi chio Allergies Active Allergy Reactions Criticality Noted Date Comments Clonazepam 09/02/2024 Medications No known medications Encounters Date Type Department Care Team Description 11/23/2024 Lab Requisition [facility] [address] [place] [address] Vero Mike MD Type 1 diabetes mellitus with hyperglycemia (CMS/HCC V24, CMS/[facility] V28); Old myocardial infarction; Essential (primary) hypertension; Vitamin D deficiency, unspecified 11/16/2024 Lab Requisition [facility] Lab [address] [place] [address] Vero Mike MD Altered mental [...] AM EST Office Visit [facility] [place] 250 175 [facility] 250 [place] [address] Luciano Smith, DPM [address] [address] Health Maintenance Due Date Last [...] EDT Type 1 diabetes mellitus with hyperglycemia ([facility] V24, [facility] V28) Old myocardial infarction Essential (primary) hypertension [...] LAB CHEMISTRY METHOD 11/24/2024 1:[address] [facility] Blood Venous blood specimen / Unknown Venipuncture / Unknown 11/24/2024 6:16 AM EDT 11/24/2024 10:32 AM EDT us Vero Mike MD LAB BLOOD ORDERABLES Final Resul t [facility] [address] [place] [address], * (ABNORMAL) Complete blood count (11/24/2024 6:16 AM EDT) WBC 8.5 4.8 - 10.8 K/[facility] LAB HEMETOLOGY METHOD 11/24/2024 11:[address] [facility] RBC 3.80 3.80 - 4.80 M/mcL LAB HEMETOLOGY METHOD 11/24/2024 11:[address] [facility] Hemoglobin 10.4(L) 11.5 - 16.0 g/dL LAB HEMETOLOGY METHOD 11/24/2024 11:00 AM [facility] Hematocrit 32.5(L) 35.0 - 47.0 % LAB HEMETOLOGY METHOD 11/24/2024 11:00 AM [facility] MCV 86.2 79.0 - 98.0 FL LAB HEMETOLOGY METHOD 11/24/2024 11:00 AM [facility] MCH 27.6 27.0 - 32.0 pcg LAB HEMETOLOGY METHOD 11/24/2024 11:00 AM [facility] MCHC 32.0 32.0 - 37.0 g/dL LAB HEMETOLOGY METHOD 11/24/2024 11:00 AM [facility] RDW 13.1 11.0 - 15.0 % LAB HEMETOLOGY METHOD 11/24/2024 11:00 AM [facility] Platelets 345 130 - 400 K/mcL LAB HEMETOLOGY METHOD 11/24/2024 11:00 AM [facility] MPV 10.1 7.0 - 11.0 FL LAB HEMETOLOGY METHOD 11/24/2024 11:00 AM [facility] NRBC 0.0 <1.0 % LAB HEMETOLOGY METHOD 11/24/2024 11:00 AM [facility] NRBC Absolute 0.00 <0.10 K/mcL LAB HEMETOLOGY METHOD 11/24/2024 11:00 AM [facility] Blood Venous blood specimen / Unknown Venipuncture / Unknown 11/24/2024 6:16 AM EDT 11/24/2024 10:24 AM EDT us Vero Mike MD LAB BLOOD ORDERABLES Final Resul t [facility] [address] [place] [address], [place] [phone] * Thyroid stimulating hormone (11/24/2024 6:16 AM EDT) Pathologist [facility] TSH 1.63 0.40 - 4.00 mcIU/mL LAB CHEMISTRY METHOD 11/24/2024 1:[address] [facility] Blood Venous blood specimen / Unknown Venipuncture / Unknown 11/24/2024 6:16 AM EDT 11/24/2024 10:32 AM EDT us Vero Mike MD LAB BLOOD ORDERABLES Final Resul t Performing Organization Address [facility]/ZIP Co de Phone Number [facility] [address] [place] [address], [place] [phone] * (ABNORMAL) Hemoglobin A1c (11/24/2024 6:16 AM EDT) [facility] Hemoglobin A1C 8.9(H) <6.5 % LAB CHEMISTRY METHOD 11/24/2024 12:[address] [facility] Mean Bld Glu Estim. 209 mg/dL LAB CHEMISTRY METHOD 11/24/2024 12:[address] [facility] Blood Venous blood specimen / Unknown Venipuncture / Unknown 11/24/2024 6:16 AM EDT 11/24/2024 10:24 AM EDT us Vero Mike MD LAB BLOOD ORDERABLES Final Resul t Performing Organization Address City/[facility]/ZIP Co de Phone Number [facility] [address] [place] [address], [place] [phone] * (ABNORMAL) Vitamin B12 (11/24/2024 6:16 AM EDT) [facility] Vitamin B-12 979(H) 250 - 900 pcg/mL LAB CHEMISTRY METHOD 11/24/2024 11:58 AM [facility] Blood Venous blood specimen / Unknown Venipuncture / Unknown 11/24/2024 6:16 AM EDT 11/24/2024 10:32 AM EDT us Vero Mike MD LAB BLOOD ORDERABLES Final Resul t [facility] [address] [place] [address], [place] [phone] * (ABNORMAL) Comprehensive metabolic panel (11/24/2024 6:16 AM EDT) Sodium 138 133 - 145 mmol/L LAB CHEMISTRY METHOD 11/24/2024 11:35 AM [facility] Potassium 4.5 3.5 - 5.5 mmol/L LAB CHEMISTRY METHOD 11/24/2024 11:35 AM [facility] Chloride 104 96 - 110 mmol/L LAB CHEMISTRY METHOD 11/24/2024 11:35 AM [facility] CO2 28 21 - 32 mmol/L LAB CHEMISTRY METHOD 11/24/2024 11:35 AM [facility] Anion Gap 6 3 - 11 LAB CHEMISTRY METHOD 11/24/2024 11:35 AM [facility] Glucose 77 70 - 100 mg/dL LAB CHEMISTRY METHOD 11/24/2024 11:35 AM [facility] BUN 21 5 - 25 mg/dL LAB CHEMISTRY METHOD 11/24/2024 11:35 AM [facility] Creatinine 0.96 0.50 - 1.10 mg/dL LAB CHEMISTRY METHOD 11/24/2024 11:35 AM [facility] eGFR 62 >=60 mL/min/1. 73m2 LAB CHEMISTRY METHOD 11/24/2024 11:35 AM [facility] Comment:Calculation based on the Chronic Kidney Disease Epidemiology Collaboration (CKD-EPI) equation refit without adjustment for race. BUN/Creatinine Ratio 21.9 LAB CHEMISTRY METHOD 11/24/2024 11:35 AM [facility] Calcium 9.2 8.5 - 10.5 mg/dL LAB CHEMISTRY METHOD 11/24/2024 11:35 AM [facility] AST (SGOT) 18 10 - 42 unit/L LAB CHEMISTRY METHOD 11/24/2024 11:35 AM [facility] ALT (SGPT) 26 10 - 60 unit/L LAB CHEMISTRY METHOD 11/24/2024 11:35 AM [facility] Alkaline Phosphatase 99 42 - 121 unit/L LAB CHEMISTRY METHOD 11/24/2024 11:35 AM [facility] Total Protein 5.6(L) 6.0 - 8.0 g/dL LAB CHEMISTRY METHOD 11/24/2024 11:35 AM [facility] Albumin 3.3 3.2 - 5.0 g/dL LAB CHEMISTRY METHOD 11/24/2024 11:35 AM [facility] Total Bilirubin 0.3 0.0 - 1.4 mg/dL LAB CHEMISTRY METHOD 11/24/2024 11:35 AM [facility] Blood Venous blood specimen / Unknown Venipuncture / Unknown 11/24/2024 6:16 AM EDT 11/24/2024 10:32 AM EDT us Vero Mike MD LAB BLOOD ORDERABLES Final Resul t [facility] [address] [place] [address], * (ABNORMAL) Urinalysis with reflex microscopic (11/15/2024 12:20 PM EDT) Specific [place] Urine 1.012 1.003 - 1.030 LAB URINALYSIS - AUTOMATED METHOD 11/16/2024 9:53 AM [facility] pH, Urine 6.0 5.0 - 8.0 pH LAB URINALYSIS - AUTOMATED METHOD 11/16/2024 9:53 AM [facility] Leukocytes, Urine Small(A) Negative LAB URINALYSIS - AUTOMATED METHOD 11/16/2024 9:53 AM [facility] Nitrite, Urine Negative Negative LAB URINALYSIS - AUTOMATED METHOD 11/16/2024 9:53 AM [facility] Protein, Urine Negative <=Trace mg/dL LAB URINALYSIS - AUTOMATED METHOD 11/16/2024 9:53 AM [facility] Glucose, Urine 100(A) Negative mg/dL LAB URINALYSIS - AUTOMATED METHOD 11/16/2024 9:53 AM [facility] Ketones, Urine Negative Negative mg/dL LAB URINALYSIS - AUTOMATED METHOD 11/16/2024 9:53 AM [facility] Urobilinogen, Urine 0.2 0.2 - 1.0 mg/dL LAB URINALYSIS - AUTOMATED METHOD 11/16/2024 9:53 AM [facility] Bilirubin, Urine Negative Negative LAB URINALYSIS - AUTOMATED METHOD 11/16/2024 9:53 AM [facility] Blood, Urine Negative Negative LAB URINALYSIS - AUTOMATED METHOD 11/16/2024 9:53 AM [facility] RBC, Urine 1.7 0 - 4 /HPF LAB URINALYSIS - AUTOMATED METHOD 11/16/2024 9:53 AM [facility] WBC, Urine 4.4(H) 0 - 4 /HPF LAB URINALYSIS - AUTOMATED METHOD 11/16/2024 9:53 AM [facility] Squamous Epithelial, Urine 42 0 - 60 /LPF LAB URINALYSIS - AUTOMATED METHOD 11/16/2024 9:53 AM [facility] Bacteria, Urine Many(A) Negative /HPF LAB URINALYSIS - AUTOMATED METHOD 11/16/2024 9:[address] [facility] Hyaline Casts, Urine 1.2 0 - 3 /LPF LAB URINALYSIS - AUTOMATED METHOD 11/16/2024 9:[address] [facility] Urine Urine specimen obtained by clean catch procedure / Unknown Non-blood Collection / Unknown 11/15/2024 12:20 PM EDT 11/16/2024 9:33 AM EDT us Vero Mike MD LAB URINE ORDERABLES Final Resul t [facility] [address] [place] [address], [place] [phone] * (ABNORMAL) Culture urine (11/15/2024 12:20 PM EDT) Culture, Urine >=100,000 CFU/mL Klebsiella pneumoniae ssp pneumoniae(A) ANA 11/18/2024 10:[address] [facility] Comment: This is an edited [...] MICROBIOLOGY - GENERAL ORDER ELIU Final Result [facility] [address] [place] [address], [place] [phone] from Last 3 Months Insurance [employer] MEDICARE Member Subscriber Plan / Payer (Ef fective 2015-Present) Name:Brandie WILLIS Relation to Subscriber:Self Name:Brandie Santana Payer ID:[id number] Group ID:[id number] Type:Not on file Address: [place] [address] [place] [id number] Care Teams Continuous Process Rotary Drum Tanner Relationship Specialty Start Date End Date Pascual Darnell MD [address] [place] [address] PCP - General Internal Medicine 06/18/24
--- OUTSIDE RECORDS SUMMARY | 2025-01-07 10:53 | XMS_ITS | Encounter Summary ---
Author Organization [employer] Address 75 [facility] 7t [place] [address] Care Team Providers Care Welder First Class Name Role Phone Pascual Dayl MD Primary Care Provide r Fani Heck PharmD Unavailable + Dasia Waters PharmD Unavailable [phone] Encounter Details Date Type Department Care Team (Late Contact Info) Description 05/29/2022 Abstract [facility] MEDICINE [address] [place] [address] Pascual Daly MD 230 [place] [address] Social History Tobacco Use Types Packs/Day Years [...] Description 01/17/2025 10:30 AM EDT Medication Management [facility] MEDICINE [address] [place] [address] Dasia Waters PharmD 230 [place] [address] 01/20/2025 10:30 AM EDT Clinical Support [facility]S 505 [place] [address] Amanda Fernández, RN 505 [place] [address] 01/26/2025 9:00 AM EDT Office Visit [facility] ADULT DENTAL [address] [place] [address] Christian Winchester DDS [address] [place] [address] 02/17/2025 10:15 AM EDT Office Visit [facility] ADULT DENTAL [address] [place] [address] Kandy Gabriela [address] [place] [address] documented as of this encounter Goals Goal [...] as of this encounter Care Teams Welder First Class Relationship Specialty Start Date End Date Pascual Daly MD 230 [place] [address] PCP - General Internal Medicine 02/22/14 Fani Heck, KristiD [address] [place] [address] Pharmacist Internal Medicine 12/16/22 08/15/24 Dasia Waters, KristiD [address] [place] [address] Pharmacist Internal Medicine 08/16/24 Iker A 12/18/24 documented as of this encounter
--- OUTSIDE RECORDS SUMMARY | 2025-01-07 10:53 | XMS_ITS | Encounter Summary ---
Author Organization [employer] Address 75 [facility] 7t [place] [address] Care Team Providers Care Director Of Speech Pathology Name Role Phone Pascual Daly MD Primary Care Provide r Fani Heck PharmD Unavailable +9 Dasia Waters PharmD Unavailable [phone] Reason for Visit * Reason Onset Date Comments Med Refill 10/11/2022 Encounter Details Date Type Department Care Team ([facility] st Contact Info) Description 10/11/2022 Telephone [facility] MEDICINE [address] [place], [place] [phone] Pascual Daly MD 230 [place], [place] [phone] Med Refill Social History Tobacco Use Types [...] [facility] [address] [place] [address] Dasia Waters, KristiD 230 [place] [address] 01/20/2025 10:30 AM EDT Clinical Support [facility] CHC MED & PEDS 505 [place] [address] Amanda Fernández, RN 505 [place] [address] 01/26/2025 9:00 AM EDT Office Visit [facility] ADULT DENTAL [address] [place] [address] Christian Winchester DDS [address] [place] [address] 02/17/2025 10:15 AM EDT Office Visit [facility] ADULT DENTAL [address] [place] [address] Gabriela Gaitan [address] [place] [address] documented as of this encounter Goals Goal [...] of this encounter Care Teams Director Of Speech Pathology Relationship Specialty Start Date End Date Pascual Daly MD 230 [place] [address] PCP - General Internal Medicine 11/4/14 Fani Heck, KristiD [address] [place] [address] Pharmacist Internal Medicine 12/16/22 08/15/24 Dasia Waters PharmD 230 [place] [address] Pharmacist Internal Medicine 08/16/24 [place] [facility] 12/18/24 documented as of this encounter
--- OUTSIDE RECORDS SUMMARY | 2025-01-07 10:53 | XMS_ITS | Encounter Summary ---
Author Organization [employer] Address 75 [facility] 7t [place] [address] Care Team Providers Care Home Theater Installer Name Role Phone Pascual Daly MD Primary Care Provide r Fani Heck PharmD Unavailable +0 Dasia Waters PharmD Unavailable [phone] Encounter Details Date Type Department Care Team (Late Contact Info) Description 08/29/2022 Abstract [facility] MEDICINE [address] [place] [address] Pascual Daly MD [address] [place] [address] Social History Tobacco Use Types Packs/Day Years [...] 10:30 AM EDT Medication Management [facility] MEDICINE [address] [place] [address] Dasia Waters, KristiD 230 [place] [address] 01/20/2025 10:30 AM EDT Clinical Support [facility] CHC MED & PEDS 505 [place] [address] Amanda Fernández, RN 505 [place] [address] 01/26/2025 9:00 AM EDT Office Visit [facility] ADULT DENTAL 230 [place] [address] Christian Winchester DDS [address] [place] [address] 02/17/2025 10:15 AM EDT Office Visit [facility] ADULT DENTAL [address] [place] [address] Kandy, Gabriela [address] [place] [address] documented as of this encounter Goals Goal [...] documented as of this encounter Care Teams Home Theater Installer Relationship Specialty Start Date End Date Pascual Daly MD [address] [place] [address] PCP - General Internal Medicine 02/22/14 Fani Heck PharmD [address] [place] [address] Pharmacist Internal Medicine 12/16/22 08/15/24 Dasia Waters PharmD [address] [place] [address] Pharmacist Internal Medicine 08/16/24 [facility] documented as of this encounter
--- OUTSIDE RECORDS SUMMARY | 2025-01-07 10:53 | XMS_ITS | Encounter Summary ---
Author Organization [employer] Address 75 [facility] 7t [place] [address] Care Team Providers Care Glove Operator Name Role Phone Pascual Daly MD Primary Care Provide r Fani Heck PharmD Unavailable +0 Dasia Waters PharmD Unavailable [phone] Reason for Visit * Reason Comments Med Refill Encounter Details Date Type Department Care Team (Late st Contact Info) Description 10/21/2023 Refill [facility] MEDICINE [address] [place] [address] Titi Gray FNP Major depressive disorder with [...] [facility] 230 [place] [address] Dasia Waters, KristiD 230 [place] [address] 01/20/2025 10:30 AM EDT Clinical Support [facility] CHC MED & PEDS 505 [place] [address] Amanda Fernández, RN 505 [place] [address] 01/26/2025 9:00 AM EDT Office Visit [facility] ADULT DENTAL 230 [place] [address] Christian Winchester DDS [address] [place] [address] 02/17/2025 10:15 AM EDT Office Visit [facility] ADULT DENTAL [address] [place] [address] Gabriela Gaitan 230 [place] [address] documented as of this encounter Goals Goal [...] documented as of this encounter Care Teams Glove Operator Relationship Specialty Start Date End Date Pascual Daly MD 230 [place] [address] PCP - General Internal Medicine 02/22/14 Fani Heck, PharmD [address] [place] [address] Pharmacist Internal Medicine 12/16/22 08/15/24 Dasia Waters PharmD [address] [place] [address] Pharmacist Internal Medicine 08/16/24 [facility] 12/18/24 documented as of this encounter
--- OUTSIDE RECORDS SUMMARY | 2025-01-07 10:53 | XMS_ITS | Encounter Summary ---
Author Organization [employer] Address [address] [facility] 7t [place] [address] Care Team Providers Care Auto Phone Installer Name Role Phone Pascual Daly MD Primary Care Provide r Dasia Waters PharmD Unavailable [phone] Reason for Visit * Reason Onset Date Comments Durable Medical Equipment 12/22/2024 Encounter Details Date Type Department Care Team ([facility] st Contact Info) Description 12/22/2024 Telephone [facility] MEDICINE 230 [place] [address] Pascual Daly MD [address] [place] [address] Durable Medical Equipment Social History Tobacco Use [...] Questionnaire -2 Score 2 01/04/2025 9:30 AM ZELALEMT Samantha Shirley MA * Little interest or pleasure in [...] TRISTAN-7 Total Score 18 01/04/2025 9:31 AM EDT Samantha Shirley MA documented as of this encounter Miscellaneous Notes * Telephone Encounter - Linda Schmidt - 01/06/2025 3:59 PM EDT RX for Diapers/pull ups and half bed rail generated and sent to PCP for signature via [employer]. Once signed, will be faxed to [facility] and sent to [facility]. If patient calls to check status on above, please advise them to contact [facility] progressive care manager . * Telephone Encounter - Linda Schmidt - 12/22/2024 4:09 PM EDT Please see message below and advise if agree. Thank you * Telephone Encounter - Sylvia England - 12/22/2024 1:42 PM EDT Tc from [facility] requesting a new scrip for DME - half bed rail To be fax to [facility] stated pt has full bed rails and is impossible for pt to get out of bed. documented in this encounter Plan of Treatment Upcoming Encounters Date Type Department Care Team (Late st Contact Info) Description 01/17/2025 10:30 AM EDT Medication Management [facility] MEDICINE 230 [place] [address] Dasia Waters, KristiD [address] [place] [address] 01/20/2025 10:30 AM EDT Clinical Support [facility] CHC MED & PEDS 505 [place] [address] Amanda Fernández, RN 505 [place] [address] 01/26/2025 9:00 AM EDT Office Visit [facility] ADULT DENTAL 230 [place] [address] Christian Winchester DDS [address] [place] [address] 02/17/2025 10:15 AM EDT Office Visit [facility] ADULT DENTAL [address] [place] [address] Gabriela Gaitan [address] [place] [address] documented as of this encounter Goals Goal [...] as of this encounter Care Teams Auto Phone Installer Relationship Specialty Start Date End Date Pascual Daly MD [address] [place] [address] PCP - General Internal Medicine 02/22/14 Dasia Waters PharmD 230 [place] [address] Pharmacist Internal Medicine 08/16/24 [facility] 12/18/24 documented as of this encounter
--- OUTSIDE RECORDS SUMMARY | 2025-01-07 10:53 | XMS_ITS | Encounter Summary ---
Author Organization [employer] Address 75 [facility] 7t [place] [address] Care Team Providers Care Superintendent Recreation Name Role Phone Pascual Daly MD Primary Care Provide r Fani Heck PharmD Unavailable [phone] Dasia Waters PharmD Unavailable [phone] Reason for Visit * Reason Comments Med Refill Encounter Details Date Type Department Care Team ([facility] st Contact Info) Description 01/14/[address] [facility] CHC MED & PEDS [address] [place] [address] Pascual Daly MD 230 [place], [place] [phone] Fibromyalgia Social History Tobacco Use Types Packs/Day [...] AM EDT Medication Management [facility] MEDICINE 230 [place] [address] Dasia Waters, PharmD 230 [place] [address] 01/20/2025 10:30 AM EDT Clinical Support [facility] CHC MED & PEDS 505 [place] [address] Amanda Fernández, RN 505 [place] [address] 01/26/2025 9:00 AM EDT Office Visit [facility] ADULT DENTAL 230 [place] [address] Christian Winchester DDS [address] [place] [address] 02/17/2025 10:15 AM EDT Office Visit [facility] ADULT DENTAL [address] [place] [address] Gabriela Gaitan [address] [place] [address] documented as of this encounter Goals Goal [...] as of this encounter Care Teams Superintendent Recreation Relationship Specialty Start Date End Date Pascual Daly MD [address] [place] [address] PCP - General Internal Medicine 02/22/14 Fani Heck, Woody [address] [place] [address] Pharmacist Internal Medicine 12/16/22 08/15/24 Dasia Waters PharmD [address] [place] [address] Pharmacist Internal Medicine 08/16/24 Iker MARCUSA 12/18/24 documented as of this encounter
--- OUTSIDE RECORDS SUMMARY | 2025-01-07 10:53 | XMS_ITS | Encounter Summary ---
Author Organization [employer] Address 75 [facility] 7t [place] [address] Care Team Providers Care Material Yard Clerk Name Role Phone Pascual Daly MD Primary Care Provide r Dasia Waters PharmD Unavailable Encounter Details Date Type Department Care Team (Late st Contact Info) Description 01/07/2025 Orders Only GENERIC EXTERNAL DATA DEPARTMENT Provider, [...] Description 01/17/2025 10:30 AM EDT Medication Management [facility] MEDICINE [address] [place] [address] Dasia Waters, KristiD [address] [place] [address] 01/20/2025 10:30 AM EDT Clinical Support [facility] CHC MED & PEDS 505 [place] [address] Amanda Fernández, RN 505 [place] [address] 01/26/2025 9:00 AM EDT Office Visit [facility] ADULT DENTAL 230 [place] [address] Christian Winchester DDS [address] [place] [address] 02/17/2025 10:15 AM EDT Office Visit [facility] ADULT DENTAL 230 [place] [address] Gabriela Gaitan [address] [place] [address] documented as of this encounter Goals Goal Patient Goal Type Associated Problems Recent Progress Patient-Stated? Author Blood Pressure < 140/90 Blood Pressure 126/59( 025 9:28 AM EDT) No Fani Heck, PharmD documented as of this encounter Procedures Procedure Name Priority Date/Time Associated Diagnosis Comments GLUCOSE, WHOLE BLOOD Routine 01/07/2025 10:30 AM EDT documented in this encounter Results * Glucose, Whole Blood (01/07/2025 10:30 AM EDT) Glucose, Whole Blood 101 60 - 115 mg/dL [facility] Comment:METER #: [id number] Testing performed in the Endocrinology Department [address] , [address], [facility]. 01/07/2025 10:3 0 AM EDT 01/07/2025 10:36 AM EDT us Generic External Data Provider LAB BLOOD ORDERAB LES Final Result [facility] [address] [place] [address] [phone] documented in this encounter Visit Diagnoses Not on filedocumented in this encounter Additional Health Concerns Assessment Noted Time PHQ-9 Depression Total Score: 12 025 9:30 AM EDT documented as of this encounter Care Teams Material Yard Clerk Relationship Specialty Start Date End Date Pascual Daly MD [address] [place] [address] PCP - General Internal Medicine 02/22/14 Dasia Waters PharmD [address] [place] [address] Pharmacist Internal Medicine 08/16/24 [facility] documented as of this encounter
--- OUTSIDE RECORDS SUMMARY | 2025-01-07 10:53 | XMS_ITS | Encounter Summary ---
Author Organization [employer] Address 75 [facility] 7t [place] [address] Care Team Providers Care Pneumatic Drum Sander Name Role Phone Pascual Daly MD Primary Care Provide r Fani Heck PharmD Unavailable [phone] Dasia Waters PharmD Unavailable [phone] Reason for Visit * Reason Onset Date Comments FYI 11/06/2023 Encounter Details Date Type Department Care Team ([facility] st Contact Info) Description 11/06/2023 Telephone [facility] MEDICINE [address] [place], [place] [phone] Pascual Daly MD 230 [place] [address] Social History Tobacco Use Types Packs/Day Years [...] - 11/06/2023 4:39 PM EDT Tc from [facility] Iker CORDERO PT informing pt has started services For PT 11/06/23 documented in this encounter Plan of Treatment Upcoming Encounters Date Type Department Care Team (Late st Contact Info) Description 01/17/2025 10:30 AM EDT Medication Management [facility] MEDICINE [address] [place] [address] Dasia Waters, PharmD [address] [place] [address] 01/20/2025 10:30 AM EDT Clinical Support [facility] CHC MED & PEDS 505 [place] [address] Amanda Fernández, RN 505 [place] [address] 01/26/2025 9:00 AM EDT Office Visit [facility] ADULT DENTAL [address] [place] [address] Christian Winchester DDS 230 [place] [address] 02/17/2025 10:15 AM EDT Office Visit [facility] ADULT DENTAL [facility] [place] [phone] Gabriela Gaitan 230 [place], [place] [phone] documented as of this encounter Goals Goal [...] documented as of this encounter Care Teams Pneumatic Drum Sander Relationship Specialty Start Date End Date [place] [address] PCP - General Internal Medicine 02/22/14 Fani Heck, PharmD [address] [place], [place] [phone] Pharmacist Internal Medicine 12/16/22 08/15/24 Dasia Waters, [place] [address] Pharmacist Internal Medicine 08/16/24 [facility] 12/18/24 documented as of this encounter
--- OUTSIDE RECORDS SUMMARY | 2025-01-07 10:53 | XMS_ITS | Encounter Summary ---
Author Organization [employer] Address [address] [facility] 7t [place] [address] Care Team Providers Care Wireworker Supervisor Name Role Phone Pascual Daly MD Primary Care Provide r Dasia Waters PharmD Unavailable [phone] Reason for Visit * Reason Onset Date Comments chart prep 01/03/2025 Encounter Details Date Type Department Care Team ([facility] st Contact Info) Description 01/03/2025 Telephone [facility] MEDICINE 230 [place] [address] Pascual Daly MD 230 [place] [address] chart prep Social History Tobacco Use Types [...] Description 01/17/2025 10:30 AM EDT Medication Management [facility] MEDICINE 230 [place] [address] Dasia Waters, KristiD 230 [place] [address] 01/20/2025 10:30 AM EDT Clinical Support [facility] CHC MED & PEDS 505 [place] [address] Amanda Fernández, RN 505 [place] [address] 01/26/2025 9:00 AM EDT Office Visit [facility] ADULT DENTAL 230 [place] [address] Christian Winchester DDS [address] [place] [address] 02/17/2025 10:15 AM EDT Office Visit [facility] ADULT DENTAL 230 [place] [address] Gabriela Gaitan [address] [place] [address] documented as of this encounter Goals Goal [...] documented as of this encounter Care Teams Wireworker Supervisor Relationship Specialty Start Date End Date Pascual Daly MD [address] [place] [address] PCP - General Internal Medicine 02/22/14 Dasia Waters PharmD [address] [place] [address] Pharmacist Internal Medicine 08/16/24 I[facility] MARCUSA 12/18/24 documented as of this encounter
--- OUTSIDE RECORDS SUMMARY | 2025-01-07 10:53 | XMS_ITS | Encounter Summary ---
Author Organization [employer] Address 75 [facility] 7t [place] [address] Care Team Providers Care [facility] [employer] [place] [facility] Lab Technician Name Role Phone Pascual Daly MD Primary Care Provide r Fani Heck PharmD Unavailable [phone] Dasia Waters PharmD Unavailable [phone] Reason for Visit * Reason Comments Med Refill Encounter Details Date Type Department Care Team (Late st Contact Info) Description 03/04/2023 Refill [facility] [address] [place] [address] Pascual Daly MD [address] [place] [address] Type 2 diabetes mellitus without complication, with long-term current use of insulin ([facility]) Social History Tobacco Use Types Packs/Day Years [...] [facility] 230 [place] [address] Dasia Waters, PharmD [address] [place] [address] 01/20/2025 10:30 AM EDT Clinical Support [facility] CHC MED & PEDS 505 [place] [address] Amanda Fernández, RN 505 [place] [address] 01/26/2025 9:00 AM EDT Office Visit [facility] ADULT DENTAL [address] [place] [address] Christian Winchester DDS [address] [place] [address] 02/17/2025 10:15 AM EDT Office Visit [facility] ADULT DENTAL [address] [place] [address] Gabriela Gaitan [address] [place] [address] documented as of this encounter Goals Goal Patient Goal Type Associated Problems Recent Progress Patient-Stated? Author Blood Pressure < 140/90 Blood Pressure 126/59( 025 9:28 AM EDT) No Fani Heck, PharmGuido documented as of this encounter Visit Diagnoses Diagnosis Type 2 diabetes mellitus without complication, with long-term current use of insulin ([facility]) documented in this encounter Additional Health Concerns Assessment Noted Time PHQ-9 Depression Total Score: 9 02/25/20 23 11:02 AM EST documented as of this encounter Care Teams [facility] [employer] [facility] Lab Technician Relationship Specialty Start Date End Date Pascual Daly MD [address] [place] [address] PCP - General Internal Medicine 02/22/14 Fani Heck, PharmD [address] [place] [address] Pharmacist Internal Medicine 12/16/22 08/15/24 Dasia Waters PharmD [address] [place] [address] Pharmacist Internal Medicine 08/16/24 Iker CORDERO 12/18/24 documented as of this encounter
--- OUTSIDE RECORDS SUMMARY | 2025-01-07 10:53 | XMS_ITS | Encounter Summary ---
Author Organization [employer] Address 75 [facility] 7t [place] [address] Care Team Providers Care Boat Designer Name Role Phone Pascual Daly MD Primary Care Provide r Fani Heck PharmD Unavailable [phone] Dasia Waters PharmD Unavailable [phone] Reason for Visit * Reason Comments Med Refill Encounter Details Date Type Department Care Team (Late st Contact Info) Description 01/01/2024 Refill [facility] [address] [place], [place] [phone] Momo Rizo MD [address] [place] [address] Social History Tobacco Use Types Packs/Day Years [...] Description 01/17/2025 10:30 AM EDT Medication Management [facility] MEDICINE [address] [place] [address] Dasia Waters, PharmD [address] [place] [address] 01/20/2025 10:30 AM EDT Clinical Support [facility] CHC MED & PEDS [address] [place] [address] Amanda Fernández, RN 505 [place] [address] 01/26/2025 9:00 AM EDT Office Visit [facility] ADULT DENTAL [address] [place] [address] Christian Winchester DDS [address] [place] [address] 02/17/2025 10:15 AM EDT Office Visit [facility] ADULT DENTAL [address] [place] [address] Gabriela Gaitan [address] [place] [address] documented as of this encounter Goals Goal [...] documented as of this encounter Care Teams Boat Designer Relationship Specialty Start Date End Date Pascual Daly MD [address] [place] [address] PCP - General Internal Medicine 02/22/14 Fani Heck, PharmD [address] [place] [address] Pharmacist Internal Medicine 12/16/22 08/15/24 Dasia Waters PharmD [address] [place] [address] Pharmacist Internal Medicine 08/16/24 Iker MARCUSA 12/18/24 documented as of this encounter
--- OUTSIDE RECORDS SUMMARY | 2025-01-07 10:53 | XMS_ITS | Encounter Summary ---
Author Organization [employer] Address [address] [facility] [address] 7t [place] [address] Care Team Providers Care Bank Accountant Name Role Phone Pascual Daly MD Primary Care Provide r Fani Heck PharmD Unavailable + Dasia Waters PharmD Unavailable [phone] Encounter Details Date Type Department Care Team (Late st Contact Info) Description 03/05/2024 Refill [facility] MEDICINE [address] [place] [address] Jefry Chun Benign hypertension; Type 2 diabetes mellitus without complication, with long-term current use of insulin ([facility]) Social History Tobacco [...] Management [facility] MEDICINE [address] [place] [address] Dasia Waters, KristiD 230 [place] [address] 01/20/2025 10:30 AM EDT Clinical Support [facility] CHC MED & PEDS [address] [place] [address] Amanda Fernández, RN 505 [place] [address] 01/26/2025 9:00 AM EDT Office Visit [facility] ADULT DENTAL [address] [place] [address] Christian Winchester DDS [address] [place] [address] 02/17/2025 10:15 AM EDT Office Visit [facility] ADULT DENTAL [address] [place] [address] Gabriela Gaitan [address] [place] [address] documented as of this encounter Goals Goal Patient Goal Type Associated Problems Recent Progress Patient-Stated? Author Blood Pressure < 140/90 Blood Pressure 126/59( 025 9:28 AM EDT) No Fani Heck, PharmD documented as of this encounter Visit Diagnoses Diagnosis Benign hypertension Essential hypertension, benign Type 2 diabetes mellitus without complication, with long-term current use of insulin ([facility]) documented in this encounter Additional Health Concerns Assessment Noted Time PHQ-9 Depression Total Score: 9 01/29/20 24 11:00 AM EDT documented as of this encounter Care Teams Bank Accountant Relationship Specialty Start Date End Date Pascual Daly MD [address] [place] [address] PCP - General Internal Medicine 02/22/14 Fani Heck, PharmD [address] [place] [address] Pharmacist Internal Medicine 12/16/22 08/15/24 Dasia Waters PharmD [address] [place] [address] Pharmacist Internal Medicine 08/16/24 Iker MARCUSA 12/18/24 documented as of this encounter
--- OUTSIDE RECORDS SUMMARY | 2025-01-07 10:53 | XMS_ITS | Encounter Summary ---
Author Organization [employer] Address [address] [facility] 7t [place] [address] Care Team Providers Care Elevator Tender Name Role Phone Pascual Daly MD Primary Care Provide r Fani Heck PharmD Unavailable [phone] Dasia Waters PharmD Unavailable [phone] Reason for Visit * Reason Comments Med Refill Encounter Details Date Type Department Care Team ([facility] Contact Info) Description 12/28/2022 Refill [facility] MEDICINE [address] [place] [address] Titi Gray FNP Major depressive disorder with [...] Upcoming Encounters Date Type Department Care Team ([facility] Contact Info) Description 01/17/2025 10:30 AM EDT Medication Management [facility] MEDICINE [address] [place], [place] [phone] Dasia Waters PharmD [address] [place] [address] 01/20/2025 10:30 AM EDT Clinical Support [facility] CHC MED & PEDS [address] [place] [address] Amanda Fernández, RN [address] [place], [place] 01/26/2025 9:00 AM EDT Office Visit [facility] ADULT DENTAL [address] [place] [address] Christian Winchester DDS [address] [place] [address] 02/17/2025 10:15 AM EDT Office Visit [facility] ADULT DENTAL [address] [place] [address] Gabriela Gaitan [address] [place] [address] documented as of this encounter Goals Goal [...] documented as of this encounter Care Teams Elevator Tender Relationship Specialty Start Date End Date Pascual Daly MD [address] [place] [phone] PCP - General Internal Medicine 02/22/14 Fani Heck PharmD [address] [place] [address] Pharmacist Internal Medicine 12/16/22 08/15/24 Dasia Waters PharmD [address] [place] [address] Pharmacist Internal Medicine 08/16/24 Iker CORDERO 12/18/24 documented as of this encounter
--- OUTSIDE RECORDS SUMMARY | 2025-01-07 10:53 | XMS_ITS | Encounter Summary ---
Author Organization [employer] Address [address] [facility] 7t [place] [address] Care Team Providers Care Loom Overhauler Name Role Phone Pascual Daly MD Primary Care Provide r Fani Heck PharmD Unavailable [phone] Dasia Waters PharmD Unavailable [phone] Reason for Visit * Reason Comments Med Refill Encounter Details Date Type Department Care Team ([facility] st Contact Info) Description 07/16/2022 Refill [facility] MEDICINE [address] [place] [address] Pascual Daly MD [address] [place] [address] Social History Tobacco Use Types Packs/Day Years [...] 01/17/2025 10:30 AM EDT Medication Management [facility] MEDICINE [address] [place] [address] Dasia Waters PharmD [address] [place] [address] 01/20/2025 10:30 AM EDT Clinical Support [facility] CHC MED & PEDS [address] [place] [address] Amanda Fernández, AALIYAH [address] [place] [address] 01/26/2025 9:00 AM EDT Office Visit [facility] ADULT DENTAL [address] [place] [address] Christian Winchester DDS [address] [place] [address] 02/17/2025 10:15 AM EDT Office Visit [facility] ADULT DENTAL [address] [place] [address] Gabriela Gaitan [address] [place] [address] documented as of this encounter Goals Goal [...] documented as of this encounter Care Teams Loom Overhauler Relationship Specialty Start Date End Date Pascual Daly MD [address] [place] [address] PCP - General Internal Medicine 02/22/14 Fani Heck, KristiD [address] [place] [address] Pharmacist Internal Medicine 12/16/22 08/15/24 Dasia Waters, Woody [address] [place] [address] Pharmacist Internal Medicine 08/16/24 Iker CORDERO 12/18/24 documented as of this encounter
--- OUTSIDE RECORDS SUMMARY | 2025-01-07 10:53 | XMS_ITS | Encounter Summary ---
Author Organization [employer] Address [address] [facility] 7t [place] [address] Care Team Providers Care Rim Buster Name Role Phone Pascual Daly MD Primary Care Provide r Dasia Waters PharmD Unavailable [phone] Encounter Details Date Type Department Care Team ([facility] st Contact Info) Description 12/31/2024 Telephone [facility] MEDICINE [address] [place] [address] Katie Harper PharmD [address] [place], [place] [phone] Social History Tobacco Use Types Packs/Day Years [...] pull ups; she reports previously receiving/coverage from [facility]. Thank you! documented in this encounter Plan of Treatment Upcoming Encounters Date Type Department Care Team (Late st Contact Info) Description 01/17/2025 10:30 AM EDT Medication Management [facility] MEDICINE [address] [place] [address] Dasia Waters, Woody [address] [place] [address] 01/20/2025 10:30 AM EDT Clinical Support [facility] CHC MED & PEDS [address] [place] [address] Amanda Fernández, RN [address] [place], [place] 01/26/2025 9:00 AM EDT Office Visit [facility] ADULT DENTAL [address] [place] [address] Christian Winchester DDS [address] [place] [address] 02/17/2025 10:15 AM EDT Office Visit [facility] ADULT DENTAL [address] [place] [address] Gabriela Gaitan [address] [place] [address] documented as of this encounter Goals Goal [...] documented as of this encounter Care Teams Rim Buster Relationship Specialty Start Date End Date Pascual Daly MD [address] [place] [address] PCP - General Internal Medicine 02/22/14 Dasia Waters PharmD [address] [place] [address] Pharmacist Internal Medicine 08/16/24 Iker MARCUSA 12/18/24 documented as of this encounter
--- OUTSIDE RECORDS SUMMARY | 2025-01-07 10:53 | XMS_ITS | Encounter Summary ---
Author Organization [employer] Address [address] [facility] 7t [place] [address] Care Team Providers Care Continuous Process Coffee Roaster Name Role Phone Pascual Daly MD Primary Care Provide r Fani Heck PharmD Unavailable [phone] Dasia Waters PharmD Unavailable [phone] Reason for Visit * Reason Onset Date Comments Med Refill 01/13/2024 Encounter Details Date Type Department Care Team ([facility] st Contact Info) Description 01/13/2024 Telephone [facility] MEDICINE [address] [place], [place] [phone] Pascual Daly MD [address] [place] [address] Med Refill Social History Tobacco Use Types [...] immediate release tablet To be sent to: [facility] - [place], [place] - [address] [place] [address] documented in this encounter Plan of Treatment Upcoming Encounters Date Type Department Care Team ([facility] st Contact Info) Description 01/17/2025 10:30 AM EDT Medication Management [facility] MEDICINE [address] [place] [address] Dasia Waters, PharmD [address] [place] [address] 01/20/2025 10:30 AM EDT Clinical Support [facility] CHC MED & PEDS [address] [place] [address] Amanda Fernández, RN [address] [place] [address] 01/26/2025 9:00 AM EDT Office Visit [facility] ADULT DENTAL [address] [place], [place] [phone] Christian Winchester DDS [address] [place] [address] 02/17/2025 10:15 AM EDT Office Visit [facility] ADULT DENTAL [address] [place], [place] [phone] Gabriela Gaitan [address] [place] [address] documented as of this encounter Goals Goal [...] documented as of this encounter Care Teams Continuous Process Coffee Roaster Relationship Specialty Start Date End Date [place] [address] PCP - General Internal Medicine 02/22/14 Fani Heck, PharmD [address] [place] [address] Pharmacist Internal Medicine 12/16/22 08/15/24 D[place] [address] Pharmacist Internal Medicine 08/16/24 Dwight [facility] 12/18/24 documented as of this encounter
--- OUTSIDE RECORDS SUMMARY | 2025-01-07 10:53 | XMS_ITS | Encounter Summary ---
Author Organization [employer] Address [address] [facility] 7t [place] [address] Care Team Providers Care Machine Sprayer Name Role Phone Pascual Daly MD Primary Care Provide r Fani Heck PharmD Unavailable [phone] Dasia Waters PharmD Unavailable [phone] Reason for Visit * Reason Comments Med Refill Encounter Details Date Type Department Care Team (Late st Contact Info) Description 10/21/2023 Refill [facility] MEDICINE [address] [place] [address] Titi Gray FNP Major depressive disorder with [...] Description 01/17/2025 10:30 AM EDT Medication Management [facility] MEDICINE [address] [place] [address] Dasia Waters, KristiD [address] [place] [address] 01/20/2025 10:30 AM EDT Clinical Support [facility] CHC MED & PEDS [address] [place] [address] Amanda Fernández, RN [address] [place] [address] 01/26/2025 9:00 AM EDT Office Visit [facility] ADULT DENTAL [address] [place] [address] Christian Winchester DDS [address] [place] [address] 02/17/2025 10:15 AM EDT Office Visit [facility] ADULT DENTAL [address] [place] [address] Gabriela Gaitan [address] [place] [address] documented as of this encounter Goals Goal [...] documented as of this encounter Care Teams Machine Sprayer Relationship Specialty Start Date End Date Pascual Daly MD [address] [place] [address] PCP - General Internal Medicine 02/22/14 Fani Heck, PharmD [address] [place] [address] Pharmacist Internal Medicine 12/16/22 08/15/24 Dasia Waters PharmD [address] [place] [address] Pharmacist Internal Medicine 08/16/24 Iker [facility] 12/18/24 documented as of this encounter
--- OUTSIDE RECORDS SUMMARY | 2025-01-07 10:53 | XMS_ITS | Clinical Summary ---
Author Organization [email or web address] Address [address] [facility] 7t [place] [address] Care Team Providers Care Mutual Fund Manager Name Role Phone Pascual Daly MD Primary Care Provide r Dasia Waters PharmD Unavailable [phone] Allergies Active Allergy Reactions Criticality Noted Date [...] ulcer 09/16/2024 Coronary artery disease invo lving kiana coronary artery of kiana heart without angina pectoris 08/12/2024 Assessment & [...] (01/04/2025 9:38 AM EDT): Patient admitted to [facility] from (11/08/24 - 11/10/24) S/P fall and head injury at the visit with hematology. Eventually admitted for head injury and wrist injury. Patient's 4th finger was dislocated, lip, nose, and forehead were lacerated. Physical Therapy recommended rehabilitation. Eventually discharged to [facility] for not meeting medical necessity for hospitalization. Instructed to follow up with orthopedics team. She was at [facility] from 11/10/24 - 12/17/24 Discharged home with medications and care home services. Instructed to follow up with PCP with us in 7 to 10 days. Today she feels fine, no complaints, has a follow up with orthopedics tomorrow Assessment & Plan (10/21/2023 10:15 AM EDT): Patient admitted to [facility] 09/09/23 after she presented to [place] emergency room due to left-sided chest discomfort as per patient she was visiting family in [place], on August 26 she turned in high [...] (08/27/2022 10:19 AM EDT): followed by a bilingual executive assistant. 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 She says it falls out when she brushes her hair Pt evaluated by Dr Guevara Rheumatoid arthritis involvi ng multiple sites with positive rheumatoid factor 08/27/2022 Assessment & Plan (01/04/2025 9:23 AM EDT): [facility] care [facility], last note 10/2023 Assessment & Plan (01/29/2024 11:21 AM EDT): Under the care [facility], last seen 10/2023 Assessment & [...] a new Psychiatrist and a psychotherapist in [place] She tells me she is taking Effexor, [...] with cardiology in August. - Follow-up in [facility] in November. Repeat BMP and A1c [...] from 7.8 Eye exam done on: 12/2023 [facility] Dx with new [...] from 8.9 Eye exam done on: 12/2023 [facility] Dx with new [...] f/u She is under the care of Manufacturing Software Engineer Dr Sprague, last seen 12/31/2023 On [...] f/u She is under the care of Manufacturing Software Engineer Dr Sprague, last seen 10/16/2023 On [...] f/u She is under the care of Manufacturing Software Engineer Dr Sprague, has a follow up [...] f/u She is under the care of Manufacturing Software Engineer Dr Sprague, has a follow up [...] was referred to Dr. Manjinder Gonsales at [facility] as her medical insurance recommended this referral. [...] LDL-C. Melquiades WALLACE et al. TEN. 2013;310(19): 9399-2554 (http://education.[employer]faq/PHV190) Chol/HDLC Ratio <5.0 (calc) 4.2 3.7 2.5 [...] Encounters Date Type Department Care Team Description 01/07/2025 Orders Only GENERIC EXTERNAL DATA DEPARTMENT Provider, Generic External Data 01/04/2025 9:30 AM EDT Office Visit [facility] [address] [place] [address] [phone] Pascual Daly MD Hospital discharge follow-up (Primary Dx); Type 2 diabetes mellitus with right eye affected by mild nonproliferative retinopathy without macular edema, with long-term current use of insulin ([facility]); Rheumatoid arthritis involving multiple sites with positive rheumatoid factor ([facility]); Major depressive disorder with psychotic features ([facility]); Mixed stress and urge urinary incontinence; Sore throat 01/04/2025 Travel 01/03/2025 Telephone [facility] [address] [place] [address] Pascual Daly MD chart prep 12/31/2024 Telephone [facility] [address] [place] [address] Katie Harper PharmD 12/22/2024 Telephone [facility] [address] [place] [address] Pascual Daly MD Durable Medical Equipment 12/15/2024 Patient Outreach [facility] [address] [place] [address] Pascual Dlay MD Transition Of Care (Tcm) (HDF scheduled. ) 11/21/2024 Refill [facility] [address] [place] [phone] Pascual Daly MD Pain; Benign hypertension 11/16/2024 Telephone [facility] [address] [place] [address] Pascual Daly MD 11/15/2024 Telephone [facility] [address] [place] [address] Pascual Daly MD Chart Prep 11/08/2024 Orders Only GENERIC EXTERNAL DATA DEPARTMENT Provider, Generic External Data 10/28/2024 10:30 AM EDT Clinical Support [facility] [address] [place] [address] Amanda Fernández RN Fibromyalgia 10/28/2024 Orders Only GENERIC EXTERNAL DATA DEPARTMENT Provider, Generic External Data 10/28/2024 Refill [facility] [address] [place] [address] Amanda Fernández RN Fibromyalgia 10/28/2024 Travel 10/27/2024 Refill [facility] [address] [place] [address] Pascual Daly MD Fibromyalgia 10/14/2024 Travel from [...] 02/27/2015,01/07/2013,05/04/2012 MMR 11/21/1997 Moderna Covid-19 Vaccine 12+ 09/04/2021,07/19/19,06/20/2020 Moderna Covid-19 Vaccine 6+ Bivalent 04/18/2022 Pfizer [...] EDT Medication Management [facility] [address] [place] [address] Dasia Waters, PharmD [address] [place] [address] 01/20/2025 10:30 AM EDT Clinical Support [facility] [address] [place] [address] Amanda Fernández, RN [address] [place] [address] 01/26/2025 9:00 AM EDT Office Visit [facility] [address] [place] [address] Christian Winchester DDS [address] [place] [address] 02/17/2025 10:15 AM EDT Office Visit [facility] [address] [place] [address] Kandy Gabriela [address] [place] [address] Health Maintenance Due Date Last Done Comments [...] 9:28 AM EDT) No Fani Heck PharmD Procedures Procedure Name Priority Date/Time Associated Diagnosis Comments GLUCOSE, WHOLE BLOOD Routine 01/07/2025 10:30 AM EDT POCT INFLUENZA A Routine 01/04/2025 10:0 8 [...] edema, with long-term current use of insulin ([facility]) GLUCOSE, WHOLE BLOOD Routine 11/08/2024 8:15 AM [...] complication, with long-term current use of insulin ([facility]) Full PROPHYLAXIS - ADULT Routine 08/05/2024 10:00 [...] Health Maintenance Results * Glucose, Whole Blood (01/07/2025 10:30 AM EDT) Only the most recent of2 resultswithin the time period is included. Glucose, Whole Blood 101 60 - 115 mg/dL [facility] Comment:METER #: [id number] Testing performed in the Endocrinology Department [address] , [address], [place]. 01/07/2025 10:3 0 AM EDT 01/07/2025 10:36 AM EDT us Generic External Data Provider LAB BLOOD ORDERAB LES Final Result [facility] [address] [place] [phone] * POCT Rapid Influenza A OSOM (01/04/2025 10:08 AM EDT) [facility] Rapid Influenza A Ag Negative Negative, Indeterminate QC Media Lot # [id number] Lot# Expiration Date Swab Nasopharyngeal structure / Unknown 01/04/2025 10:08 AM EDT Pascual Terry MD POINT OF CARE TEST EN TER/EDIT ORDERABLES Final Result * POCT Rapid Influenza B BALL ID NOW (01/04/2025 9:54 AM EDT) [facility] Influenza B Negative Negative, Indeterminate [facility] QC Media Lot # [id number] [facility] Lot# Expiration Date [facility] Swab 01/04/2025 9:54 AM EDT Pascual Terry MD POINT OF CARE TEST EN TER/EDIT ORDERABLES Final Result Performing Organization Address [facility] Co de Phone Number [facility] [address] [place] [phone] * POCT Rapid Covid-19 BALL ID NOW (01/04/2025 9:54 AM EDT) [facility] Coronavirus Antigen PCR Negative Negative, Indeterminate, None Detected, Invalid, Specimen unsatisfactory for evaluation, Weakly Positive, 2+ QC Media Lot # [id number] Lot# Expiration Date , Swab 01/04/2025 9:54 AM EDT us Pascual Terry MD POINT OF CARE TEST EN TER/EDIT ORDERABLES Final Result * POCT Rapid Strep A BALL ID NOW (01/04/2025 9:51 AM EDT) [facility] Rapid Strep A Screen Negative Negative, None Detected QC Media Lot # [id number] Lot# Expiration Date Swab 01/04/2025 9:51 AM EDT Pascual Terry MD POINT OF CARE TEST EN TER/EDIT ORDERABLES Final Result * POCT Rapid Covid-19 BinaxNOW (01/04/2025 9:51 AM EDT) [facility] Rapid COVID Ag Negative QC Media Lot # [id number] Lot# Expiration Date Swab 01/04/2025 9:51 AM EDT Pascual Terry MD POINT OF CARE TEST EN TER/EDIT ORDERABLES Final Result * POCT Glucose (01/04/2025 9:29 AM EDT) [facility] Glucose Blood, POC 182 60 - 200 mg/dL QC Media Lot # [id number] Lot# Expiration Date 979 Blood Capillary blood specimen / Unknown 01/04/2025 9:29 AM EDT Pascual Terry MD POINT OF CARE TEST EN TER/EDIT ORDERABLES Final Result * (ABNORMAL) POCT HEATHER-14 Urine Drug Screen (10/28/2024 10:05 AM EDT) [facility] THC Negative Negative Cocaine Screen, Urine Negative [...] 10:05 AM EDT Internal Pass Control Lot# [id number] Exp: 02-18-26 us Pascual Terry MD POINT OF CARE TEST EN TER/EDIT ORDERABLES Final Result * Vitamin D, 25-Hydroxy, Total, Immunoassay (10/28/2024 10:04 AM EDT) Vitamin D 25-OH Total 78.0 >30 ng/mL [facility] Comment: Health Based Reference Values*< 20 ng/mL Rmstqhlbz01-65 ng/mL Insufficient> 30 ng/mL Sufficient*Dione TUCKER. N [...] Provider LAB BLOOD ORDERAB LES Final Result [facility] [address] [place] [phone] * T-SPOT??.TB (10/28/2024 10:04 AM EDT) T Spot TB Negative Negative [facility] Comment:A negative test resu lt [...] as aquantitative test. TS PANEL A 1 [facility] TS PANEL B 0 [facility] Negative Control Passed [facility] Positive Control Passed [facility] Comment:For additional infor matbony, please refer tohttp://education.[employer]faq/JJI836(This link is being provided for informational/educational purposes only.)REPORT COMMENT:REC'D AT [facility] TEST WAS PERFORMED AT:[employer] [id number] [place] [id number] CORDON MD,PHD 10/28/2024 10:0 4 AM EDT 10/28/2024 3:44 PM EDT us Generic External Data Provider LAB BLOOD ORDERAB LES Final Result [facility] [address] [place] [phone] * Hepatitis Panel, General (10/28/2024 10:04 AM EDT) Pathologist [facility] Hepatitis A IgM Nonreactive Nonreactive [facility] Comment:IgM antibodies to GARCIA V not detected; does not exclude earlyacute or recovered HAV infection. ~Hepatitis B Surface Antibody NONREACTIVE Nonreactive [facility] Comment:Nonreactive: < 8.00 mIU/mL Hepatitis B Core Antibody Nonreactive Nonreactive [facility] Hepatitis C Antibody Nonreactive Nonreactive [facility] Comment:Antibodies to HCV no t detected; does not exclude early acuteHCV infection. Hepatitis B Surface Ag Negative Negative [facility] 10/28/2024 10:0 4 AM EDT 10/28/2024 3:46 PM EDT Generic External Data Provider LAB BLOOD ORDERAB LES Final Result Performing Organization Address [facility] Co de Phone Number [facility] [address] [place] [phone] * Hepatitis C Viral RNA, Quantitative, Real-Time PCR (10/28/2024 10:04 AM EDT) [facility] Hepatitis C Viral Load <15 NOT DETECTED NOT DETECTED IU/mL [facility] HCV Log PCR <1.18 NOT DETECTED NOT DETECTED Log IU/mL [facility] Comment:For additional infor pat, please refer tohttp://education.[employer]faq/SOA02y5(This link is being provided for informational/educational purposes only.)THIS TEST WAS PERFORMED AT:[employer] [place] [id number] HURLEY MD 10/28/2024 10:0 4 AM EDT 10/28/2024 3:46 PM EDT us Generic External Data Provider LAB BLOOD ORDERAB LES Final Result Performing Organization Address [facility]/ZIP Co de Phone Number [facility] [address] [place] [phone] * (ABNORMAL) CBC auto differential (10/28/2024 10:04 AM EDT) White Blood Count 9.5 4.8 - 10.8 X10*3/uL [facility] Red Blood Count 4.17(L) 4.20 - 5.50 X10*6/uL [facility] Hemoglobin 11.7(L) 12.0 - 16.0 g/dl [facility] Hematocrit 36.6(L) 37.0 - 47.0 % [facility] Mean Corpuscular Volume 87.8 80.0 - 98.0 fL [facility] Mean Corpuscular Hemoglobin 28.1 27.0 - 33.0 pg [facility] Mean Corpuscular HGB Conc 32.0 31.0 - 35.0 g/dl [facility] Red Cell Distribution Width 13.9 11.0 - 16.0 % [facility] Platelet Count 199 160 - 400 X10*3/uL [facility] Mean Platelet Volume 11.4 9.4 - 12.3 fL [facility] Neutrophils Percent Auto 49.1 45 - 73 % [facility] Imm Gran Pct Auto 0.2 0.0 - 0.4 % [facility] Lymphocytes Percent Auto 31.2 20 - 40 % [facility] Monocytes Percent Auto 6.2 2 - 11 % [facility] Eosinophils Percent Auto 12.1(H) 0 - 4 % [facility] Basophils Percent Auto 1.2 0 - 2 % [facility] NRBC Pct Auto 0.0 0.0 - 0.2 /100WBC [facility] Neutrophils Absolute Auto 4.7 2.0 - 8.3 x10*3/uL [facility] Imm Gran Abs Auto 0.02 0.00 - 0.03 X10*3/uL [facility] Lymphocytes Absolute Auto 3.0 1.2 - 4.9 X10*3/uL [facility] Monocytes Absolute Auto 0.6 0.1 - 1.2 X10*3/uL [facility] Eosinophils Absolute Auto 1.1(H) 0.0 - 0.4 X10*3/uL [facility] Basophils Absolute Auto 0.1 0.0 - 0.2 X10*3/uL [facility] NRBC Abs Auto 0.000 0.0 - 0.012 X10*3/uL [facility] 10/28/2024 10:0 4 AM EDT 10/28/2024 3:46 PM EDT Generic External Data Provider LAB BLOOD ORDERAB LES Final Result Performing Organization Address [facility]/ZIP Co de Phone Number [facility] [address] [place] [phone] * Sed Rate by Modified Nilaren (10/28/2024 10:04 AM EDT) Erythrocyte Sedimentation Rate 2 0 - 20 MM/HR [facility] Comment:Patients with polycy themia and many hemoglobin abnormalitiesmay have depressed sed rates whereas patients with anemiamay have elevated sed rates. 10/28/2024 10:0 4 AM EDT 10/28/2024 3:46 PM EDT Generic External Data Provider LAB BLOOD ORDERAB LES Final Result Performing Organization Address [facility] Co de Phone Number [facility] [address] [place] [phone] * Lipid Panel, Standard (08/16/2024 9:24 AM EDT) Triglycerides 100 <150 mg/dL [facility] Comment:Desirable Triglyceri de: less than 150 mg/dLBorderline High Triglyceride 150-199 mg/dLHigh Triglyceride: 200-499 mg/dLVery High Triglyceride: greater than or equal to 5OO mg/dL Cholesterol 145 <200 mg/dL [facility] Comment:Desirable Cholestero l: less than 200 mg/dLBorderline High Cholesterol: 200-239 mg/dLHigh Cholesterol: greater than 239 mg/dL LDL Cholesterol Calculated 60 <100 mg/dL [facility] Comment:Desirable LDL: less than 100 mg/dLNear Optimal/Above Optimal LDL: 110- 129 mg/dLBorderline High LDL: 130-159 mg/dLHigh LDL: 160-189 mg/dLVery High LDL: greater than or equal to 190 mg/dL HDL Cholesterol 65 >40 mg/dL [facility] Comment:Desirable HDL: great er than 40 mg/dL Note: This HDL assay may give artificially low results in patients with liver disease. Blood Venous blood specimen / Unknown 08/16/2024 9:24 AM EDT 08/16/2024 10:57 AM EDT Pascual Terry MD LAB BLOOD ORDERABLES Final Result [facility] [address] [place] [phone] * (ABNORMAL) POCT HGB A1C (08/12/2024 [...] AM EDT Narrative 08/10/2024 3:27 PM EDT [facility] [address] [place] [address] Mammography Report Signed Patient: Brandie Santana MR#: [id number] : 1950 Acct:[id number] Age/Sex: 74 / F ADM Date: 08/02/24 Loc: HO.MAMMO Attending Dr: Pascual Darnell MD Ordering Physician: Pascual Darnell MD Resu lts: 2Benign Findings Date of Service: 08/02/24 Follow Up: 1 Year From [facility] Mammogram Procedure(s): MM tomosynthesis screening BI Accession Number(s): [id number] cc: Pascual Darnell MD EXAMINATION: MM SCREENING [...] 08/10/24 1523 DD/ 1103 TD/TT: 08/02/24 1116 Professor Of Early Childhood Education: Procedure Note Donotuseinterpreter, Image - 08/10/2024 [facility] [address] [place], [place] [address] Mammography Report Signed Patient: Dino Santana#: [id number] : 1950Acct:[id number] Age/Sex: 74 / FADM Date: 08/02/24 Loc: HO.MAMMO Attending Dr: Pascual Darnell MD Ordering Physician: Pascual Darnell MDResu lts: 2Benign Findings Date of Service: 08/02/24Follow Up: 1 Year From [facility] Mammogram Procedure(s): MM tomosynthesis screening BI Accession Number(s): [id number] cc: Pascual Darnell MD EXAMINATION: MM SCREENING [...] 08/10/24 1523 DD/ 1103 TD/TT: 08/02/24 1116 Professor Of Early Childhood Education: us Pascual Terry MD IMG BI PROCEDURES Fin al Result * (ABNORMAL) Albumin, Random Urine W/Creatinine (07/02/2023 10:06 AM EDT) Creatinine, Urine 163.81 mg/dL [facility] Microalbumin Urine 59.0 mg/L H [facility] Microalbum Creatinine Ratio Ur 36.0(H) <30 ug/mg cr [facility] Comment:Albumin/Creatinine R atio Reference Ranges: Normal: < 30 ug/mg creatinine Microalbuminuria: 30 - 300 ug/mg creatinineClinical Albuminuria: > 300 ug/mg creatinine 07/02/2023 10:0 6 AM EDT 07/02/2023 11:41 AM EDT us Generic External Data Provider LAB URINE ORDERAB LES Final Result [facility] [address] [place] [address] [phone] * Colonoscopy (03/20/2018) Colonoscopy Normal Normal 03/20/2018 Narrative Sondra Rowe - 03/20/2018 9:09 AM EST Recommended 10 year follow up Historical Provider HEALTH MAINTENANCE Edited Result - Final from Last 3 Months or Most Recently Relevant to Health Maintenance Insurance [employer] [employer] (O D-SNP) [facility] Care Teams Mutual Fund Manager Relationship Specialty Start Date End Date Pascual Daly MD [address] [place] [address] PCP - General Internal Medicine 02/22/14 Dasia Waters PharmD [address] [place] [address] Pharmacist Internal Medicine [facility]
--- OUTSIDE RECORDS SUMMARY | 2025-01-07 10:53 | XMS_ITS | Encounter Summary ---
Author Organization [employer] Address [address] [facility] 7t [place] [address] Care Team Providers Care Associate Sales Name Role Phone Pascual Daly MD Primary Care Provide r Fani Heck PharmD Unavailable [phone] Dasia Waters PharmD Unavailable [phone] Reason for Visit * Reason Comments Med Refill Encounter Details Date Type Department Care Team (Late Contact Info) Description 08/08/2022 Refill [facility] [address] [place] [phone] Momo Rizo MD [address] [place] [phone] Mild intermittent asthma without complication Social History [...] Upcoming Encounters Date Type Department Care Team ([facility] Contact Info) Description 01/17/2025 10:30 AM EDT Medication Management [facility] [address] [place] [address] Dasia Waters PharmD [address] [place] [address] 01/20/2025 10:30 AM EDT Clinical Support [facility] [address] [place] [address] Amanda Fernández, RN [address] [place] [address] 01/26/2025 9:00 AM EDT Office Visit [facility] [address] [place] [address] Christian Winchester DDS [address] [place] [address] 02/17/2025 10:15 AM EDT Office Visit [facility] [address] [place] [address] Gabriela Gaitan [address] [place] [address] documented as of this encounter Goals Goal [...] documented as of this encounter Care Teams Associate Sales Relationship Specialty Start Date End Date Pascual Daly MD [address] [place] [phone] PCP - General Internal Medicine 02/22/14 Fani Heck PharmD [address] [place] [phone] Pharmacist Internal Medicine 12/16/22 08/15/24 Dasia Waters PharmD [address] [place] [phone] Pharmacist Internal Medicine 08/16/24 Iker CORDERO 12/18/24 documented as of this encounter
--- OUTSIDE RECORDS SUMMARY | 2025-01-07 10:53 | XMS_ITS | Encounter Summary ---
Author Organization [employer] Address [address] [facility] 7t [place] [address] Care Team Providers Care Supervisor [employer]ating And Point [employer] Name Role Phone Pascual Daly MD Primary Care Provide r Fani Heck PharmD Unavailable + Dasia Waters PharmD Unavailable [phone] Encounter Details Date Type Department Care Team (Late st Contact Info) Description 07/01/2022 Abstract [facility] [address] [place] [phone] Pascual Daly MD [address] [place] [phone] Social History Tobacco Use Types Packs/Day Years [...] Description 01/17/2025 10:30 AM EDT Medication Management [facility] [address] [place] [address] Dasia Waters, KristiD [address] [place] [address] 01/20/2025 10:30 AM EDT Clinical Support [facility] [address] [place] [address] Amanda Fernández, RN [address] [place] [address] 01/26/2025 9:00 AM EDT Office Visit [facility] [address] [place] [address] Christian Winchester DDS [address] [place] [address] 02/17/2025 10:15 AM EDT Office Visit [facility] [address] [place] [address] Gabriela Gaitan [address] [place] [address] documented as of this encounter Goals Goal [...] as of this encounter Care Teams Supervisor [employer]ating [employer] Relationship Specialty Start Date End Date Pascual Daly MD [address] [place] [address] PCP - General Internal Medicine 02/22/14 Fani Heck, KristiD [address] [place] [address] Pharmacist Internal Medicine 12/16/22 08/15/24 Dasia Waters PharmD [address] [place] [address] Pharmacist Internal Medicine 08/16/24 [place] [facility] 12/18/24 documented as of this encounter
--- OUTSIDE RECORDS SUMMARY | 2025-01-07 10:53 | XMS_ITS | Encounter Summary ---
Author Organization [employer] Address 75 [facility] 7t [place] [address] Care Team Providers Care Sales And Service Associate Name Role Phone Pascual Daly MD Primary Care Provide r Fani Heck PharmD Unavailable +8 Dasia Waters PharmD Unavailable [phone] Reason for Visit * Reason Onset Date Comments FYI 12/11/2023 Durable Medical Equipment 12/11/2023 Encounter Details Date Type Department Care Team (Late st Contact Info) Description 12/11/2023 Telephone [facility] MEDICINE 230 [place], [place] [phone] Pascual Daly MD 230 [place], [place] [phone] FYI ; Durable Medical Equipment Social History [...] two DME scripts to be sent to [facility] which: [facility] bed Please fax over to [phone] documented in this encounter Plan of Treatment Upcoming Encounters Date Type Department Care Team ([facility] st Contact Info) Description 01/17/2025 10:30 AM EDT Medication Management [facility] MEDICINE 230 [place] [address] Dasia Waters, PharmD 230 [place] [address] 01/20/2025 10:30 AM EDT Clinical Support [facility] CHC MED & PEDS 505 [place] [address] Amanda Fernández, RN 505 [place] [address] 01/26/2025 9:00 AM EDT Office Visit [facility] ADULT DENTAL 230 [place] [address] Christian Winchester DDS 230 [place] [address] 02/17/2025 10:15 AM EDT Office Visit [facility] ADULT DENTAL 230 [place] [address] Gabriela Gaitan 230 [place] [address] documented as of this encounter Goals Goal [...] as of this encounter Care Teams Sales And Service Associate Relationship Specialty Start Date End Date [place] [address] PCP - General Internal Medicine 02/22/14 Fani Heck, PharmD [facility] [place] [address] Pharmacist Internal Medicine 12/16/22 08/15/24 Dasia Waters, KristiD [facility] [place] [place] [address] Pharmacist Internal Medicine 08/16/24 Iker MARCUSA 12/18/24 documented as of this encounter
--- OUTSIDE RECORDS SUMMARY | 2025-01-07 10:53 | XMS_ITS | Encounter Summary ---
Author Organization [employer] Address 75 [facility] 7t [place] [address] Care Team Providers Care Manager Managed Backup Services Name Role Phone Pascual Daly MD Primary Care Provide r Dasia Waters PharmD Unavailable [phone] Encounter Details Date Type Department Care Team [...] 10:30 AM EDT Medication Management [facility] MEDICINE 230 [place] [address] Dasia Waters, Woody 230 [place] [address] 01/20/2025 10:30 AM EDT Clinical Support [facility] CHC MED & PEDS 505 [place] [address] Amanda Fernández, RN 505 [place] 01/26/2025 9:00 AM EDT Office Visit [facility] ADULT DENTAL 230 [place] [address] Christian Winchester DDS 230 [place] [address] 02/17/2025 10:15 AM EDT Office Visit [facility] ADULT DENTAL 230 [place] [address] Gabriela Gaitan 230 [place] [address] documented as of this encounter Goals Goal [...] as of this encounter Care Teams Manager Managed Backup Services Relationship Specialty Start Date End Date Pascual Daly MD [address] [place] [address] PCP - General Internal Medicine 02/22/14 Dasia Waters, KristiD [address] [place] [address] Pharmacist Internal Medicine 08/16/24 Iker MARCUSA 12/18/24 documented as of this encounter
--- OUTSIDE RECORDS SUMMARY | 2025-01-07 10:53 | XMS_ITS | Encounter Summary ---
Author Organization [employer] Address 75 [facility] 7t [place] [address] Care Team Providers Care Gun Perforator Name Role Phone Pascual Daly MD Primary Care Provide r Fani Heck PharmD Unavailable [phone] Dasia Waters PharmD Unavailable [phone] Reason for Visit * Reason Onset Date Comments FYI 12/31/2023 Encounter Details Date Type Department Care Team ([facility] st Contact Info) Description 12/31/2023 Telephone [facility] 230 [place], [place] [phone] Pascual Daly MD 230 [place] [address] Social History Tobacco Use Types Packs/Day Years [...] any questions you can contact Franky at [phone]. documented in this encounter Plan of Treatment Upcoming Encounters Date Type Department Care Team (Late st Contact Info) Description 01/17/2025 10:30 AM EDT Medication Management [facility] 230 [place] [address] Dasia Waters, PharmD 230 [place] [address] 01/20/2025 10:30 AM EDT Clinical Support [facility] CH[facility] MED & PEDS 505 [place] [address] Amanda Fernández, RN 505 [place] [address] 01/26/2025 9:00 AM EDT Office Visit [facility] ADULT DENTAL 230 [place] [address] Christian Winchester DDS 230 [place] [address] 02/17/2025 10:15 AM EDT Office Visit [facility] ADULT DENTAL 230 [place] [address] Gabriela Gaitan 230 [place] [address] documented as of this encounter Goals Goal [...] documented as of this encounter Care Teams Gun Perforator Relationship Specialty Start Date End Date Pasc[place] [address] PCP - General Internal Medicine 02/22/14 Fani Heck, [place] [address] Pharmacist Internal Medicine 12/16/22 08/15/24 Dasia Waters, Krist[place] [address] Pharmacist Internal Medicine 08/16/24 [facility] 12/18/24 documented as of this encounter
--- OUTSIDE RECORDS SUMMARY | 2025-01-07 10:53 | XMS_ITS | Encounter Summary ---
Author Organization [employer] Address 75 [facility] 7t [place] [address] Care Team Providers Care Bar Helper Name Role Phone Pascual Daly MD Primary Care Provide r Fani Heck PharmD Unavailable [phone] Dasia Waters PharmD Unavailable [phone] Reason for Visit * Reason Onset Date Comments Med Refill 12/15/2023 Encounter Details Date Type Department Care Team ([facility] st Contact Info) Description 12/15/2023 Telephone [facility] MEDICINE 230 [place], [place] [phone] Pascual Daly MD 230 [place], [place] [phone] Med Refill Social History Tobacco Use Types [...] immediate release tablet To be sent to: [facility] - [place], [place] - [address] [place] [address] documented in this encounter Plan of Treatment Upcoming Encounters Date Type Department Care Team ([facility] st Contact Info) Description 01/17/2025 10:30 AM EDT Medication Management [facility] MEDICINE 230 [place] [address] Dasia Waters, PharmD 230 [place] [address] 01/20/2025 10:30 AM EDT Clinical Support [facility] CHC MED & PEDS 505 [place] [address] Amanda Fernández, RN 505 [place] [address] 01/26/2025 9:00 AM EDT Office Visit [facility] ADULT DENTAL 230 [place], [place] [phone] Christian Winchester DDS 230 [place] [address] 02/17/2025 10:15 AM EDT Office Visit [facility] ADULT DENTAL 230 [place] [address] Gabriela Gaitan 230 [place] [address] documented as of this encounter Goals Goal [...] documented as of this encounter Care Teams Bar Helper Relationship Specialty Start Date End Date Pascual Daly MD 230 [place] [address] PCP - General Internal Medicine 02/22/14 Fani Heck, [place] [address] Pharmacist Internal Medicine 12/16/22 08/15/24 [place] [address] Pharmacist Internal Medicine 08/16/24 [facility] 12/18/24 documented as of this encounter
--- OUTSIDE RECORDS SUMMARY | 2025-01-07 10:54 | XMS_ITS | Encounter Summary ---
Author Organization [facility] Address [address] [place] [address] Care Team Providers Care Building Official Name Role Phone Pascual Darnell MD Primary Care Provi chio Encounter Details Date Type Department Care Team (Late Contact Info) Description 11/23/2024 Lab Requisition [facility] - Main Lab [address] [facility] [place] [phone] Vero Mike MD [address] [place], [place] [phone] Type 1 diabetes mellitus with hyperglycemia (CMS/HCC [...] AM EST Office Visit [facility] [place] [address] [phone] Luciano Smith DPM [address] [phone] documented as of this encounter Procedures Procedure Name Priority Date/Time Associated Diagnosis Comments VITAMIN D 25 HYDROXY Routine 11/24/2024 6:16 AM EDT Type 1 diabetes mellitus with hyperglycemia (CMS/HCC V24, CMS/HCC V28) Old myocardial infarction Essential (primary) hypertension Vitamin D deficiency, unspecified COMPLETE BLOOD COUNT Routine 11/24/2024 6:16 AM EDT Type 1 diabetes mellitus with hyperglycemia ([facility] V24, [facility]/HCC V28) Old myocardial infarction Essential (primary) hypertension Vitamin D deficiency, unspecified THYROID STIMULATING HORMONE Routine 11/24/2024 6:16 AM EDT Type 1 diabetes mellitus with hyperglycemia ([facility]/HCC V24, [facility] V28) Old myocardial infarction Essential (primary) hypertension Vitamin D deficiency, unspecified HEMOGLOBIN A1C Routine 11/24/2024 6:16 AM EDT Type 1 diabetes mellitus with hyperglycemia ([facility]/HCC V24, [facility] V28) Old myocardial infarction Essential (primary) hypertension Vitamin D deficiency, unspecified VITAMIN B12 Routine 11/24/2024 6:16 AM EDT Type 1 diabetes mellitus with hyperglycemia ([facility]/HCC V24, [facility] V28) Old myocardial infarction Essential (primary) hypertension Vitamin D deficiency, unspecified COMPREHENSIVE METABOLIC PANEL Routine 11/24/2024 6:16 AM EDT Type 1 diabetes mellitus with hyperglycemia ([facility]/HCC V24, [facility] V28) Old myocardial infarction Essential (primary) hypertension Vitamin D deficiency, unspecified documented in this encounter Results * (ABNORMAL) Hemoglobin A1c (11/24/2024 6:16 AM EDT) Hemoglobin A1C 8.9(H) <6.5 % LAB CHEMISTRY METHOD 11/24/2024 12:29 PM EDT [facility] Mean Bld Glu Estim. 209 mg/dL LAB CHEMISTRY METHOD 11/24/2024 12:29 PM EDT [facility] Blood Venous blood specimen / Unknown Venipuncture / Unknown 11/24/2024 6:16 AM EDT 11/24/2024 10:24 AM EDT us Fahim A Rashid MD LAB BLOOD ORDERABLES Final Resul t [facility] [address] [place] [address], * (ABNORMAL) Complete blood count (11/24/2024 6:16 AM EDT) WBC 8.5 4.8 - 10.8 K/mcL LAB HEMETOLOGY METHOD 11/24/2024 11:00 AM [facility] RBC 3.80 3.80 - 4.80 M/mcL LAB HEMETOLOGY METHOD 11/24/2024 11:00 AM [facility] Hemoglobin 10.4(L) 11.5 - 16.0 g/dL LAB HEMETOLOGY METHOD 11/24/2024 11:00 AM [facility] Hematocrit 32.5(L) 35.0 - 47.0 % LAB HEMETOLOGY METHOD 11/24/2024 11:00 AM [facility] MCV 86.2 79.0 - 98.0 FL LAB HEMETOLOGY METHOD 11/24/2024 11:00 AM [facility] MCH 27.6 27.0 - 32.0 pcg LAB HEMETOLOGY METHOD 11/24/2024 11:00 AM [facility] MCHC 32.0 32.0 - 37.0 g/dL LAB HEMETOLOGY METHOD 11/24/2024 11:00 AM [facility] RDW 13.1 11.0 - 15.0 % LAB HEMETOLOGY METHOD 11/24/2024 11:00 AM [facility] Platelets 345 130 - 400 K/mcL LAB HEMETOLOGY METHOD 11/24/2024 11:00 AM [facility] MPV 10.1 7.0 - 11.0 FL LAB HEMETOLOGY METHOD 11/24/2024 11:00 AM EDT [facility] NRBC 0.0 <1.0 % LAB HEMETOLOGY METHOD 11/24/2024 11:00 AM EDT [facility] NRBC Absolute 0.00 <0.10 K/mcL LAB HEMETOLOGY METHOD 11/24/2024 11:00 AM T [facility] Blood Venous blood specimen / Unknown Venipuncture / Unknown 11/24/2024 6:16 AM EDT 11/24/2024 10:24 AM EDT us Vero Mike MD LAB BLOOD ORDERABLES Final Resul t [facility] [address] [place] [address], [place] [phone] * (ABNORMAL) Comprehensive metabolic panel (11/24/2024 6:16 AM EDT) Sodium 138 133 - 145 mmol/L LAB CHEMISTRY METHOD 11/24/2024 11:35 AM [facility] Potassium 4.5 3.5 - 5.5 mmol/L LAB CHEMISTRY METHOD 11/24/2024 11:35 AM [facility] Chloride 104 96 - 110 mmol/L LAB CHEMISTRY METHOD 11/24/2024 11:35 AM [facility] CO2 28 21 - 32 mmol/L LAB CHEMISTRY METHOD 11/24/2024 11:35 AM [facility] Anion Gap 6 3 - 11 LAB CHEMISTRY METHOD 11/24/2024 11:35 AM [facility] Glucose 77 70 - 100 mg/dL LAB CHEMISTRY METHOD 11/24/2024 11:35 AM [facility] BUN 21 5 - 25 mg/dL LAB CHEMISTRY METHOD 11/24/2024 11:35 AM [facility] Creatinine 0.96 0.50 - 1.10 mg/dL LAB CHEMISTRY METHOD 11/24/2024 11:35 AM [facility] eGFR 62 >=60 mL/min/1. 73m2 LAB CHEMISTRY METHOD 11/24/2024 11:35 AM [facility] Comment:Calculation based on the Chronic Kidney Disease Epidemiology Collaboration (CKD-EPI) equation refit without adjustment for race. BUN/Creatinine Ratio 21.9 LAB CHEMISTRY METHOD 11/24/2024 11:35 AM [facility] Calcium 9.2 8.5 - 10.5 mg/dL LAB CHEMISTRY METHOD 11/24/2024 11:35 AM [facility] AST (SGOT) 18 10 - 42 unit/L LAB CHEMISTRY METHOD 11/24/2024 11:35 AM [facility] ALT (SGPT) 26 10 - 60 unit/L LAB CHEMISTRY METHOD 11/24/2024 11:35 AM [facility] Alkaline Phosphatase 99 42 - 121 unit/L LAB CHEMISTRY METHOD 11/24/2024 11:35 AM [facility] Total Protein 5.6(L) 6.0 - 8.0 g/dL LAB CHEMISTRY METHOD 11/24/2024 11:35 AM [facility] Albumin 3.3 3.2 - 5.0 g/dL LAB CHEMISTRY METHOD 11/24/2024 11:35 AM [facility] Total Bilirubin 0.3 0.0 - 1.4 mg/dL LAB CHEMISTRY METHOD 11/24/2024 11:35 AM [facility] Blood Venous blood specimen / Unknown Venipuncture / Unknown 11/24/2024 6:16 AM EDT 11/24/2024 10:32 AM EDT us Vero Mike MD LAB BLOOD ORDERABLES Final Resul t [facility] [address] [place] [address], [place] [phone] * Thyroid stimulating hormone (11/24/2024 6:16 AM EDT) [facility] TSH 1.63 0.40 - 4.00 mcIU/mL LAB CHEMISTRY METHOD 11/24/2024 1:30 PM EDT [facility] Blood Venous blood specimen / Unknown Venipuncture / Unknown 11/24/2024 6:16 AM EDT 11/24/2024 10:32 AM EDT us Vero Mike MD LAB BLOOD ORDERABLES Final Resul t Performing Organization Address City/[facility] Co de Phone Number [facility] [address] [place] [address], [place] [phone] * Vitamin D 25 hydroxy (11/24/2024 6:16 AM EDT) [facility] Vit D, 25-Hydroxy 50.1 30.0 - 80.0 ng/mL LAB CHEMISTRY METHOD 11/24/2024 1:30 PM EDT [facility] Blood Venous blood specimen / Unknown Venipuncture / Unknown 11/24/2024 6:16 AM EDT 11/24/2024 10:32 AM EDT us Vero Mike MD LAB BLOOD ORDERABLES Final Resul t Performing Organization Address City/[facility]/ZIP Co de Phone Number [facility] [address] [place] [address], [place] [phone] * (ABNORMAL) Vitamin B12 (11/24/2024 6:16 AM EDT) [facility] Vitamin B-12 979(H) 250 - 900 pcg/mL LAB CHEMISTRY METHOD 11/24/2024 11:58 AM EDT [facility] Blood Venous blood specimen / Unknown Venipuncture / Unknown 11/24/2024 6:16 AM EDT 11/24/2024 10:32 AM EDT us Vero Mike MD LAB BLOOD ORDERABLES Final Resul t [facility] [address] [place] [address], documented in this encounter Visit Diagnoses Diagnosis Type 1 diabetes mellitus with hyperglycemia (CMS/[facility] V24, [facility] V28) Old myocardial infarction Essential (primary) hypertension Unspecified essential hypertension Vitamin D deficiency, unspecified documented in this encounter Care Teams Building Official Relationship Specialty Start Date End Date Pascual Darnell MD [address] [place] [address] PCP - General Internal Medicine 06/18/24 documented as of this encounter
--- OUTSIDE RECORDS SUMMARY | 2025-01-07 10:54 | XMS_ITS | Encounter Summary ---
Author Organization [employer] Address 75 [facility] 7t [place] [address] Care Team Providers Care Senior Lead Java Developer Name Role Phone Pascual Daly MD Primary Care Provide r Fani Heck PharmD Unavailable +- Dasia Waters PharmD Unavailable [phone] Encounter Details Date Type Department Care Team (Late Contact Info) Description 03/11/2022 Abstract [facility]ICINE 230 [place] [address] Fani Heck, PharmD 230 [place], [place] [phone] Social History Tobacco Use Types Packs/Day Years [...] Upcoming Encounters Date Type Department Care Team ([facility] Contact Info) Description 01/17/2025 10:30 AM EDT Medication Management [facility] 230 [place], [place] [phone] Dasia Waters, PharmD 230 [place], [place] [phone] 01/20/2025 10:30 AM EDT Clinical Support [facility] CH[facility] MED & PEDS 505 [place] [address] Amanda Fernández, RN 505 [place] [address] 01/26/2025 9:00 AM EDT Office Visit [facility] ADULT DENTAL 230 [place] [address] Christian Winchester DDS 230 [place] [address] 02/17/2025 10:15 AM EDT Office Visit [facility] ADULT DENTAL [address] [place] [address] Gabriela Gaitan 230 [place] [address] documented as of this encounter Visit Diagnoses Not on filedocumented in this encounter Care Teams Senior Lead Java Developer Relationship Specialty Start Date End Date Pascual Daly MD [address] [place] [address] PCP - General Internal Medicine 02/22/14 Fani Heck, PharmD [address] [place] [address] Pharmacist Internal Medicine 12/16/22 08/15/24 Dasia Waters, KristiD [address] [place] [address] Pharmacist Internal Medicine 08/16/24 [facility] 12/18/24 documented as of this encounter
--- OUTSIDE RECORDS SUMMARY | 2025-01-07 10:54 | XMS_ITS | Encounter Summary ---
Author Organization [employer] Address 75 [facility] 7t [place] [address] Care Team Providers Care Public Policy Professor Name Role Phone Pascual Daly MD Primary Care Provide r Fani Heck PharmD Unavailable + Dasia Waters PharmD Unavailable [phone] Encounter Details Date Type Department Care Team (Late st Contact Info) Description 03/11/2022 Abstract [facility] MEDICINE 230 [place] [address] Pascual Daly MD 230 [place], [place] [phone] Social History Tobacco Use Types Packs/Day Years [...] [facility] 230 [place] [address] Dasia Waters, PharmD 230 [place] [address] 01/20/2025 10:30 AM EDT Clinical Support [facility] CHC MED & PEDS 505 [place] [address] Amanda Fernández, RN 505 [place] [address] 01/26/2025 9:00 AM EDT Office Visit [facility] ADULT DENTAL 230 [place] [address] Christian Winchester DDS [address] [place] [address] 02/17/2025 10:15 AM EDT Office Visit [facility] ADULT DENTAL [address] [place] [address] Gabriela Gaitan 230 [place] [address] documented as of this encounter Visit Diagnoses Not on filedocumented in this encounter Care Teams Public Policy Professor Relationship Specialty Start Date End Date Pascual Daly MD [address] [place] [address] PCP - General Internal Medicine 02/22/14 Fani Heck, KristiD [address] [place] [address] Pharmacist Internal Medicine 12/16/22 08/15/24 Dasia Waters, KristiD [address] [place] [address] Pharmacist Internal Medicine 08/16/24 [facility] 12/18/24 documented as of this encounter
--- OUTSIDE RECORDS SUMMARY | 2025-01-07 10:54 | XMS_ITS | Encounter Summary ---
Author Organization [employer] Address 75 [facility] 7t [place] [address] Care Team Providers Care Horse Racing Manager Name Role Phone Pascual Daly MD Primary Care Provide r Fani Heck PharmD Unavailable +2 Dasia Waters PharmD Unavailable [phone] Encounter Details Date Type Department Care Team (Latest Contact Info) Description 05/26/2019 Abstract [facility] CONVERSIONS Dental, Provider, DDS Social History [...] 10:30 AM EDT Medication Management [facility] MEDICINE 230 [place] [address] Dasia Waters, PharmD 230 [place] [address] 01/20/2025 10:30 AM EDT Clinical Support [facility] CHC MED & PEDS 505 [place] [address] Amanda Fernández, RN 505 [place] [address] 01/26/2025 9:00 AM EDT Office Visit [facility] ADULT DENTAL 230 [place] [address] Christian Winchester DDS 230 [place] [address] 02/17/2025 10:15 AM EDT Office Visit [facility] ADULT DENTAL 230 [place] [address] Gabriela Gaitan 230 [place] [address] documented as of this encounter Visit Diagnoses Not on filedocumented in this encounter Care Teams Horse Racing Manager Relationship Specialty Start Date End Date Psacual Daly MD [address] [place] [address] PCP - General Internal Medicine 02/22/14 Fani Heck PharmD [address] [place] [address] Pharmacist Internal Medicine 12/16/22 08/15/24 Dasia Waters PharmD [address] [place] [address] Pharmacist Internal Medicine 08/16/24 [facility] 12/18/24 documented as of this encounter
--- OUTSIDE RECORDS SUMMARY | 2025-01-07 10:54 | XMS_ITS | Encounter Summary ---
Author Organization [employer] Address 75 [facility] 7t [place] [address] Care Team Providers Care Renewable Energy Engineer Name Role Phone Pascual Daly MD Primary Care Provide r Fani Heck PharmD Unavailable +0 Dasia Waters PharmD Unavailable [phone] Encounter Details Date Type Department Care Team (Late Contact Info) Description 03/13/2022 Abstract [facility] MEDICINE [address] [place] [phone] Provider, MD Bill Social History Tobacco Use [...] Upcoming Encounters Date Type Department Care Team ([facility] Contact Info) Description 01/17/2025 10:30 AM EDT Medication Management [facility] MEDICINE 230 [place] [address] Dasia Waters, PharmD 230 [place] [address] 01/20/2025 10:30 AM EDT Clinical Support [facility] CHC MED & PEDS 505 [place] [address] Amanda Fernández, RN 505 [place] [address] 01/26/2025 9:00 AM EDT Office Visit [facility] ADULT DENTAL [address] [place] [address] Christian Winchester DDS [address] [place] [address] 02/17/2025 10:15 AM EDT Office Visit [facility] ADULT DENTAL [address] [place] [address] Kandy, Gabriela [address] [place] [address] documented as of this encounter Visit Diagnoses Not on filedocumented in this encounter Care Teams Renewable Energy Engineer Relationship Specialty Start Date End Date Pascual Daly MD [address] [place] [address] PCP - General Internal Medicine 02/22/14 Fani Heck, KristiD [address] [place] [address] Pharmacist Internal Medicine 12/16/22 08/15/24 Dasia Waters, KristiD [address] [place] [address] Pharmacist Internal Medicine 08/16/24 [facility] 12/18/24 documented as of this encounter
--- OUTSIDE RECORDS SUMMARY | 2025-01-07 10:54 | XMS_ITS | Encounter Summary ---
Author Organization [facility] Address [address] [place] [address] Care Team Providers Care Second Baller Name Role Phone Pascual Darnell MD Primary Care Provi chio Encounter Details Date Type Department Care Team (Late st Contact Info) Description 11/16/2024 Lab Requisition [facility] - Main Lab [address] [facility] [place] [phone] Vero Mike MD [address] [place] [address] Altered mental status, unspecified Social History Tobacco [...] AM EST Office Visit Orthopedic Surgery - [place] [address] [phone] Luciano Smith DPM 175 [facility] [address] [place] [phone] documented as of this encounter Procedures Procedure [...] reflex microscopic (11/15/2024 12:20 PM EDT) Specific [place] Urine 1.012 1.003 - 1.030 LAB URINALYSIS - AUTOMATED METHOD 11/16/2024 9:53 AM [facility] pH, Urine 6.0 5.0 - 8.0 pH LAB URINALYSIS - AUTOMATED METHOD 11/16/2024 9:53 AM [facility] Leukocytes, Urine Small(A) Negative LAB URINALYSIS - AUTOMATED METHOD 11/16/2024 9:53 AM [facility] Nitrite, Urine Negative Negative LAB URINALYSIS - AUTOMATED METHOD 11/16/2024 9:53 AM [facility] Protein, Urine Negative <=Trace mg/dL LAB URINALYSIS - AUTOMATED METHOD 11/16/2024 9:53 AM [facility] Glucose, Urine 100(A) Negative mg/dL LAB URINALYSIS - AUTOMATED METHOD 11/16/2024 9:53 AM [facility] Ketones, Urine Negative Negative mg/dL LAB URINALYSIS - AUTOMATED METHOD 11/16/2024 9:53 AM [facility] Urobilinogen, Urine 0.2 0.2 - 1.0 mg/dL LAB URINALYSIS - AUTOMATED METHOD 11/16/2024 9:53 AM [facility] Bilirubin, Urine Negative Negative LAB URINALYSIS - AUTOMATED METHOD 11/16/2024 9:53 AM [facility] Blood, Urine Negative Negative LAB URINALYSIS - AUTOMATED METHOD 11/16/2024 9:53 AM [facility] RBC, Urine 1.7 0 - 4 /HPF LAB URINALYSIS - AUTOMATED METHOD 11/16/2024 9:53 AM EDT [facility] WBC, Urine 4.4(H) 0 - 4 /HPF LAB URINALYSIS - AUTOMATED METHOD 11/16/2024 9:53 AM EDT [facility] Squamous Epithelial, Urine 42 0 - 60 /LPF LAB URINALYSIS - AUTOMATED METHOD 11/16/2024 9:53 AM EDT [facility] Bacteria, Urine Many(A) Negative /HPF LAB URINALYSIS - AUTOMATED METHOD 11/16/2024 9:53 AM EDT [facility] Hyaline Casts, Urine 1.2 0 - 3 /LPF LAB URINALYSIS - AUTOMATED METHOD 11/16/2024 9:53 AM EDT [facility] Urine Urine specimen obtained by clean catch procedure / Unknown Non-blood Collection / Unknown 11/15/2024 12:20 PM EDT 11/16/2024 9:33 AM EDT us Vero Mike MD LAB URINE ORDERABLES Final Resul t [facility] [address] [place] [address], * (ABNORMAL) Culture urine (11/15/2024 12:20 PM EDT) Culture, Urine >=100,000 CFU/mL Klebsiella pneumoniae ssp pneumoniae(A) ANA 11/18/2024 10:57 AM EDT [facility] Comment: This is an [...] MICROBIOLOGY - GENERAL ORDER ELIU Final Result [facility] [address] [place] [address], documented in this encounter Visit Diagnoses Diagnosis Altered mental status, unspecified documented in this encounter Care Teams Second Baller Relationship Specialty Start Date End Date Pascual Darnell MD [address] [place] [id number] PCP - General Internal Medicine 06/18/24 documented as of this encounter
== END 2025-01-07 11:05 | disposition home or self-care (01) ==
LOC: HO.ENCR 10:20
PROVIDERS: PCP Internal Medicine; Visit Provider Student in an Organized Health Care Education/Training Program
DX: E10.649 Type 1 diabetes mellitus with hypoglycemia without coma (principal); E03.8 Other specified hypothyroidism; E06.3 Autoimmune thyroiditis; Z13.9 Encounter for screening, unspecified
CPT/HCPCS: 95251; 99214

== ENCOUNTER → 2025-01-07 10:19 | Outpatient (BNVA) | payer OTHER, SELFPAY | PROVIDERS: PCP Internal Medicine; Visit Provider Student in an Organized Health Care Education/Training Program | DX: E10.65 Type 1 diabetes mellitus with hyperglycemia (principal) | CPT/HCPCS: 82947; 83036; 99212 ==

== ENCOUNTER 2025-01-11 09:11 | Outpatient (AMB) | payer OTHER, SELFPAY ==
--- NOTE | 2025-01-11 09:43 | MHC.OFFVIS ---
Vital Signs 01/11/25 09:51 Height 4 ft 11 in Weight 149 lb 14.629 oz BMI 30.3 BP 140/80 H Blood Pressure Location Lt brachial Position Sitting Pulse 83 Pulse Source Pulse Oximeter Pulse Oximetry (%) 97 Oxygen Delivery Method Room Air Intake Visit Reasons: RA Intake Note: Patient presents for RA follow up. [employer] Consultant Required: Yes [employer] Consultant Language: Signs Sales Representative Services: [employer] Consultant Present [employer] Consultant Name: Brandie [phone] Information Interpreted: non-clinical & clinical Allergies lorazepam (LORAZEPAM) Allergy (Severe, Verified 01/11/25 09:50) DELIRIUM celecoxib (From Celebrex) Allergy (Intermediate, Verified 01/11/25 09:50) ITCHING tramadol (TRAMADOL) Allergy (Intermediate, Verified 01/11/25 09:50) ITCHING zolpidem (Ambien) Allergy (Unknown, Verified 01/11/25 09:50) unknown Medication List - Last Reconciled 01/11/25 by Mirella Garcia MD acetaminophen 650 mg (2 x 325 mg) PO Q6H PRN Actemra ACTPen (tocilizumab) 162 mg (0.9 mL) subcut Q2W NS albuterol sulfate 90 mcg/actuation 2 puffs inhalation Q4-6H PRN albuterol sulfate 2.5 mg (3 mL) inhalation Q3H PRN amlodipine 10 mg PO DAILY aripiprazole 20 mg PO DAILY atorvastatin 20 mg PO DAILY bisacodyl 10 mg (2 x 5 mg) PO BEDTIME blood sugar diagnostic (FreeStyle Lite Strips) TEST BLOOD SUGAR 8 TIMES EVERY DAY blood-glucose meter (FreeStyle Lite Meter kit) As directed blood-glucose sensor (GreenVolts G7 Sensor device) As directed every 10 days calcium citrate 400 mg (2 x 200 mg (950 mg)) PO BID carvedilol 6.25 mg PO BID cholecalciferol (vitamin D3) (Vitamin D3) 50 mcg PO DAILY clonazepam 1 tab PO Q8H PRN clopidogrel 75 mg PO DAILY esomeprazole magnesium 40 mg PO DAILY@0630 Fiasp FlexTouch U-100 Insulin 100 unit/mL (3 mL) (insulin aspart (niacinamide)) See Protocol units subcut TIDAC NS folic acid 1 mg PO DAILY gabapentin 100 mg PO BID glucagon 3 mg/actuation (Baqsimi) 3 mg intranasal ONCE PRN 30 days insulin degludec (Tresiba FlexTouch U-100 insulin) 20 units (0.2 mL) subcut DAILY insulin syringe-needle U-100 (BD Insulin Syringe Ultra-Fine) As directed 3 times per day levothyroxine 125 mcg PO DAILY@0600 linaclotide (Linzess) 145 mcg PO DAILY losartan 100 mg PO DAILY melatonin 3 mg PO BEDTIME nebulizers As directed ondansetron 4 mg PO Q8H PRN oxycodone 5 mg PO Q12H PRN pen needle, diabetic (Pentips Pen Needle) USE FIVE TIMES DAILY prazosin 6 mg PO BEDTIME simethicone (Gas Relief (simethicone)) 125 mg PO QID PRN venlafaxine ER 75 mg PO DAILY zinc gluconate 30 mg PO DAILY HPI Comments Details: Patient is a 74-year-old female with hypertension, hyperlipidemia, GERD, diabetes, Rona's disease with concomitant hypothyroidism, IBS, depression, 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 Interval History: Patient last seen 06/18/24 with wy - On Actemra 162mg SC every 2 weeks and IV Reclast 5mg yearly - Continued to have swelling to the dorsum of her left hand likely secondary to a ruptured tendon and was supposed to follow up with her hand surgeon. But patient has not followed up with hand surgery due to uncontrolled diabetes. Currently following up with endocrinology for this. - With respect to her rheumatoid arthritis she feels her rheumatoid arthritis is under control however she continues to have problems with the left hand again secondary to her ruptured tendon. Today - On Actemra 162mg SC every 2 weeks and IV Reclast 5mg yearly - ?Last IV Reclast - Fell 10/2024 after getting her B12 infusion - Sustained fractures to her left wrist and hand - Complaining of whole body pain, worse at night - Takes Tylenol but it is not helping Rheumatologic History: Seropositive rheumatoid arthritis +RF -ve CCP dx 02/10 Enbrel 02/2023 partially effective DC 09/2023 Actemra 10/2023 effective Initial history : This is a 72-year-old female who presents for evaluation of joint pain. Patient states that she started having pain and swelling of her hands and feet, ankles over the last 6 months associated with morning stiffness lasting 10 minutes. She has had back pain for years. Meloxicam is not helpful. She is unaware of any family history of autoimmune rheumatic disease. She denies any skin rashes. Denies any history of DVT/PE or recurrent abortions. Current Rheumatology Medication(s): Actemra 162mg SC every other week Reclast IV infusions 5mg every year [facility] Medical History Heart palpitations Hypoglycemia due to insulin Elevated parathyroid hormone Osteoporosis Hyperlipidemia (04/21/1959) Depressive disorder (04/21/1959) Nutritional anemia (04/21/1959) Shortness of breath Hypothyroidism (04/21/1959) Anemia Chronic gastritis NSTEMI (non-ST elevated myocardial infarction) Recurrent falls (12/04/11) Iron deficiency anemia (04/21/1959) Fibromyositis (04/21/1959) Eczema (04/21/1959) High risk medication use Hepatitis C antibody positive in blood Screening for osteoporosis Screening for viral disease Joint swelling Overweight (BMI 25.0-29.9) Neck pain Swelling of knee joint, right Intra-abdominal abscess Diabetes Elevated liver function tests Intestinal malabsorption following gastrectomy Obesity (BMI 30-39.9) 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 Hypertension Cholecystitis Hyperlipidemia, unspecified Essential hypertension Atherosclerotic cardiovascular disease Fibromyalgia Folliculitis Anxiety Depression History of myocardial infarction Diabetes type 1, uncontrolled 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 Mother CVA (cerebral vascular accident) Sister Hypertension Brother Hypertension Liver cancer Social History Household Members: None Housing: Apartment Are you a primary family member caretaker to a significant other at home: No Do you presently have visiting nurse or other home services: Yes Unable to assess alcohol history related to: Unable to respond Alcohol intake: never Patient Tobacco Use Status: Never used Tobacco Advance Directives Date on File: 09/17/23 service: No Current occupational status: disabled Current occupation: right hand dominant Review of Systems Const Details: Review of Systems Constitutional: Denies fever, chills, weight loss ENT: Denies vision changes, eye pain or eye redness, dental caries, dry mouth GI: Denies nausea, vomiting, diarrhea, abdominal pain, change in BM Pulm: Denies SOB, MIRANDA, hemoptysis, wheezing Cards: Denies chest pain, palpitations Skin: Denies Raynaud's, rash, nail changes, photosensitivity, INFRASTRUCTURE TECH: Denies headaches, weakness, paresthesias, recurrent falls MSK: as per HPI All other systems reviewed and are unremarkable except noted above Physical Exam Exam Exam: Vital signs reviewed Physical Examination CONSTITUITIONAL Patient alert and cooperative. Well appearing and in no apparent painful distress MSK Hands Right Hand: Not able to make a fist. Ulnar deviation with herbeden's nodes noted. No swelling or tenderness to palpation of the MCPs, PIPs or DIPs. Left Hand: Not able to make a fist. Ulnar deviation at the MCPs. Flexion of the 4th digit. No swelling or tenderness to palpation of the MCPs, PIPs or DIPs. Wrists Right Wrist: Decreased ROM. Synovial hypertrophy. No TTP Left Wrist: Fixed with swelling, warmth and TTP Elbows Right Elbow: Decreased ROM. No swelling or TTP. No TTP of the medial epicondyle. No TTP of the lateral epicondyle Left Elbow: Decreased ROM. No swelling or TTP. No TTP of the medial epicondyle. No TTP of the lateral epicondyle Shoulders Right shoulder: Decreased ROM. No swelling noted. No TTP of the AC joint. No TTP of the subacromial bursa. No TTP of the posterior shoulder Left shoulder: Decreased ROM. No swelling noted. No TTP of the AC joint. No TTP of the subacromial bursa. No TTP of the posterior shoulder Knees Right knee: Decreased ROM. Mild swelling noted No TTP of the knee joint line. No TTP of pes anserine bursa Left knee: Decreased ROM. Mild swelling noted No TTP of the knee joint line. No TTP of pes anserine bursa. Ankles Right ankle: Good ankle dorsiflexion and plantar flexion. No swelling. No TTP of the ankle joint Left ankle: Good ankle dorsiflexion and plantar flexion. No swelling. No TTP of the ankle joint Feet Right foot: Negative squeeze test Left foot: Negative squeeze test Tender points? No tenderness to palpation of the bilateral trapezius, supraspinatus, anterior costochondral junctions, bilateral suboccipital muscle insertions SKIN No rashes Vital Signs: Last Vital Signs Pulse 83 01/11/25 09:51 BP 140/80 H 01/11/25 09:51 Pulse Ox 97 01/11/25 09:51 Oxygen Delivery Method Room Air 01/11/25 09:51 BMI result Body Mass Index 30.3 Results Reviewed Results Reviewed: Laboratory Tests 10/28/24 11/12/24 10:04 18:05 WBC 11.4 H RBC 3.71 L Hgb 10.5 L Hct 30.8 L ESR 2 Sodium 134 L Potassium 3.9 D Chloride 100 Carbon Dioxide 24 BUN 40 H Creatinine 1.24 AST 24 ALT 38 H Laboratory Tests 10/08/22 11:23 Rheumatoid Factor 15.3 H Cycl Citrul Peptide IgG <16 Laboratory Tests 10/28/24 10:04 Hepatitis A IgM Ab Nonreactive Hep Bs Antigen Negative Hep Bs Antibody NONREACTIVE Hep B Core Total Ab Nonreactive Hepatitis C Ab (EIA) Nonreactive Hep C Viral Load <15 NOT DETECTED Hep C Viral Load Log <1.18 NOT DETECTED TB Test (T-Spot) Com Negative XR Left Wrist 10/2024 FINDINGS: There is an acute comminuted distal radial metaphyseal fracture with intra-articular involvement, mild impaction measuring approximately 4 mm, and mild dorsal angulation of the distal fragment. There is mild displacement present. There is an acute transverse minimally displaced fracture of the distal ulna at the metaphyseal level. The carpal bones appear intact and aligned normally. No additional fractures seen. Mild degenerative arthritis at the first CMC joint. There is diffuse soft tissue swelling about the wrist. IMPRESSION: 1. Acute comminuted intra-articular distal radial metaphyseal fracture with mild displacement, mild impaction and mild dorsal angulation. 2. Acute transverse minimally displaced fracture of the distal ulna at the metaphyseal level. 3. Diffuse soft tissue swelling. XR Bilateral Hands 10/2024 FINDINGS (Right): Three views of the right hand are submitted. The bones are osteopenic. There is ulnar dislocation of the 4th finger at the PIP joint. A tiny osseous density at the dorsum of the wrist may represent a triquetral fracture. There is narrowing of the 2nd and 3rd MCP joints as well as the interphalangeal joints. There is volar angulation of the lunate and widening of the scapholunate joint. The soft tissues are unremarkable. IMPRESSION: 1. Ulnar dislocation of the 4th finger at the PIP joint. 2. Probable triquetral fracture. FINDINGS (Right): Again noted is diffuse osteopenia. The ulnar dislocated PIP joint of the fourth digit has been reduced. There is possibly a small bony fragment on the ulnar side of the head of the proximal phalanx. Additionally, there is subtle cortical lucency and step off along the dorsal base of the middle phalanx. There is soft tissue swelling involving the fourth digit. There is severe narrowing of the third metacarpophalangeal joint. There is chondral calcinosis in the triangular fibrocartilage. IMPRESSION: Reduced PIP joint of the fourth digit with suspected small cortical fragment along the ulnar aspect of the head of the fourth proximal phalanx and suspected nondisplaced fracture involving the dorsal base of the middle phalanx at the extensor tendon enthesis. 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 DEXA 05/2023 FINDINGS: LEFT FEMUR, NECK: Current: BMD 0.506 g/cm2, Z-score -2.1, T-score -3.8, osteoporosis. Baseline: BMD 0.625 g/cm2. LEFT FEMUR, TOTAL: Current: BMD 0.494 g/cm2, Z-score -2.6, T-score -4.1, osteoporosis, 27.2% decrease from baseline (<5% change is not significant). Baseline: BMD 0.679 g/cm2. AP SPINE L1-L4: Current: BMD 0.745 g/cm2, Z-score -2.1, T-score -3.6, osteoporosis, 13.7% decrease from baseline (<5% change is not significant). Baseline: BMD 0.863 g/cm2. Assessment & Plan Assessment & Plan (1) Seropositive rheumatoid arthritis: Comment: +RF -ve CCP dx 02/10 Enbrel 02/2023 partially effective DC 09/2023 Actemra 10/2023 effective Code(s): M05.9 - Rheumatoid arthritis with rheumatoid factor, unspecified Category: Medical Plan: #Seropositive RA Patient is a 74-year-old female with seropositive erosive rheumatoid arthritis. Her disease is currently complicated by her recent fall and fractures Left wrist with mild RA flare noted by the swelling, warmth and TTP. This could be in the setting of her wrist fracture though She is allergic to tramadol and this provider does not Rx narcotics, she should follow up with ortho since she has a broken wrist for additional pain control Will give her a course of prednisone Plan - Actemra 162mg SC every other week - Prednisone Take 20mg for 7 days then 15mg for 7 days then 10mg for 7 days then 5mg for 7 days then stop - RTC 6 months - Labs today: CBC, CMP, ESR, CRP, hepatitis panel, T spot, lipid panel, Vit D (2) Osteoporosis: Comment: DEXA 05/2023 Left femur neck T-score-3.8 Left femur total-4.1 L-spine T-score -3.6 Left clavicle and multiple rib fractures 10/2023 Code(s): M81.0 - Age-related osteoporosis without current pathological fracture Category: Medical Qualifiers: Osteoporosis type: age-related Presence of current pathological fracture: without current pathological fracture Qualified Code(s): M81.0 - Age-related osteoporosis without current pathological fracture Plan: #Osteoporosis Patient with osteoporosis complicated by multiple fractures. Currently on Reclast. Her last DEXA scan was in 2023 repeat is due in 2025. IV reclast ordered (3) Encounter for monitoring tocilizumab therapy: Code(s): Z51.81 - Encounter for therapeutic drug level monitoring; Z79.620 - long term care administrator (current) use of immunosuppressive biologic Plan: #Long-term Use of Tocilizumab Discussed the risks and benefits of tocilizumab with the management of this patient's rheumatic condition. ? Benefits include decreased pain, improved mortality, improved quality of life Risks include LFT abnormalities, elevated triglycerides, GI perforations Contraindicated in a patient with history of diverticulitis Monitoring: ?CBC, CMP, triglycerides (4) Encounter for monitoring bisphosphonate therapy: Code(s): Z51.81 - Encounter for therapeutic drug level monitoring; Z79.83 - [facility] (current) use of bisphosphonates Plan: #Long-term Use of Bisphosphonates Risks and benefits of bisphosphonates in the management of osteoporosis Benefits include improved bone density, decreased fracture risk Risks include atypical femoral fractures, GI upset, esophageal strictures Contraindicated in patients with a creatinine clearance < 30 to 35 ml/min Keep vitamin-D at least 35 ng/mL Plan I spent 40 minutes reviewing the record and labs, taking a history, examining the patient, discussing the treatment plan and documenting in the medical record Orders: Orders Complete Blood Count Auto Diff 6 Months - [facility] [place] therapy Comprehensive Met. Panel 6 Months - [facility] [place] drug therapy C Reactive Protein 6 Months - [facility]) drug therapy Erythrocyte Sedimentation Rate 6 Months . - [facility] [place] drug therapy Lipid Panel 6 Months - Other [facility]termin[facility] (current) drug therapy Hepatitis B,C Profile 6 Months - [facility] drug therapy T Spot TB 6 Months - Other [facility] (current) drug therapy Vitamin D 25-OH Total 6 Months - [facility] drug therapy Referrals Infusion Center Notification M81.0 - Age-related osteoporosis without current pathological fracture Medications: New prednisone Take 4 tablets for 7 days then 3 tablets for 7 days then 2 tablets for 7 days then 1 tablet for 7 days then stop 5 mg PO DIRECTED 70 tabs 0RF M05.9 - Rheumatoid arthritis with rheumatoid factor, unspecified Refilled Actemra ACTPen (tocilizumab) 162 mg (0.9 mL) subcut Q2W 1.8 mL 5RF NS M05.9 - Rheumatoid arthritis with rheumatoid factor, unspecified Coding Level of Care Code Est Pt Level 5 (27424) Complex EM visit Add On G2211 Diagnoses Seropositive rheumatoid arthritis M05.9 Age-related osteoporosis without current pathological fracture M81.0 Osteoporosis type: age-related Presence of current pathological fracture: without current pathological fracture Encounter for monitoring tocilizumab therapy Z51.81; Z79.620 Encounter for monitoring bisphosphonate therapy Z51.81; Z79.83
[2025-01-11 09:51] VITALS: BP 140/80; PULSE 83; O2SAT 97; BMI 30.3
--- OUTSIDE RECORDS SUMMARY | 2025-01-11 10:44 | XMS_ITS | Encounter Summary ---
Author Organization [facility] Address [address] [place] [address] Care Team Providers Care Enrober Tender Name Role Phone Pascual Darnell MD Primary Care Provi chio Encounter Details Date Type Department Care Team (Late st Contact Info) Description 11/16/2024 Lab Requisition [facility] - Main Lab 299 [facility] [place] [phone] Vero Mike MD [address] [place] [address] Altered mental status, unspecified Social History Tobacco [...] AM EST Office Visit Orthopedic Surgery - [place] [address] [phone] Luciano Smith DPM 175 [facility] 250 [place] [phone] documented as of this encounter Procedures Procedure [...] reflex microscopic (11/15/2024 12:20 PM EDT) Specific [place] Urine 1.012 1.003 - 1.030 LAB URINALYSIS - AUTOMATED METHOD 11/16/2024 9:53 AM [facility] pH, Urine 6.0 5.0 - 8.0 pH LAB URINALYSIS - AUTOMATED METHOD 11/16/2024 9:53 AM [facility] Leukocytes, Urine Small(A) Negative LAB URINALYSIS - AUTOMATED METHOD 11/16/2024 9:53 AM [facility] Nitrite, Urine Negative Negative LAB URINALYSIS - AUTOMATED METHOD 11/16/2024 9:53 AM [facility] Protein, Urine Negative <=Trace mg/dL LAB URINALYSIS - AUTOMATED METHOD 11/16/2024 9:53 AM [facility] Glucose, Urine 100(A) Negative mg/dL LAB URINALYSIS - AUTOMATED METHOD 11/16/2024 9:53 AM [facility] Ketones, Urine Negative Negative mg/dL LAB URINALYSIS - AUTOMATED METHOD 11/16/2024 9:53 AM [facility] Urobilinogen, Urine 0.2 0.2 - 1.0 mg/dL LAB URINALYSIS - AUTOMATED METHOD 11/16/2024 9:53 AM [facility] Bilirubin, Urine Negative Negative LAB URINALYSIS - AUTOMATED METHOD 11/16/2024 9:53 AM [facility] Blood, Urine Negative Negative LAB URINALYSIS - AUTOMATED METHOD 11/16/2024 9:53 AM [facility] RBC, Urine 1.7 0 - 4 /HPF LAB URINALYSIS - AUTOMATED METHOD 11/16/2024 9:53 AM EDT [facility] WBC, Urine 4.4(H) 0 - 4 /HPF LAB URINALYSIS - AUTOMATED METHOD 11/16/2024 9:53 AM EDT [facility] Squamous Epithelial, Urine 42 0 - 60 /LPF LAB URINALYSIS - AUTOMATED METHOD 11/16/2024 9:53 AM EDT [facility] Bacteria, Urine Many(A) Negative /HPF LAB URINALYSIS - AUTOMATED METHOD 11/16/2024 9:53 AM EDT [facility] Hyaline Casts, Urine 1.2 0 - 3 /LPF LAB URINALYSIS - AUTOMATED METHOD 11/16/2024 9:53 AM EDT [facility] Urine Urine specimen obtained by clean catch procedure / Unknown Non-blood Collection / Unknown 11/15/2024 12:20 PM EDT 11/16/2024 9:33 AM EDT us Vero Mike MD LAB URINE ORDERABLES Final Resul t [facility] [address] [place] [address], * (ABNORMAL) Culture urine (11/15/2024 12:20 PM EDT) Culture, Urine >=100,000 CFU/mL Klebsiella pneumoniae ssp pneumoniae(A) ANA 11/18/2024 10:57 AM EDT [facility] Comment: This is an edited result. [...] MICROBIOLOGY - GENERAL ORDER ELIU Final Result [facility] HOSPITAL LAB [address] [place] [address], documented in this encounter Visit Diagnoses Diagnosis Altered mental status, unspecified documented in this encounter Care Teams Enrober Tender Relationship Specialty Start Date End Date Pascual Darnell MD [address] [place] [id number] PCP - General Internal Medicine 06/18/24 documented as of this encounter
--- OUTSIDE RECORDS SUMMARY | 2025-01-11 10:44 | XMS_ITS | Encounter Summary ---
Author Organization [facility] Address [address] [place] [address] Care Team Providers Care Expansion Joint Finisher Name Role Phone Pascual Darnell MD Primary Care Provi chio Encounter Details Date Type Department Care Team (Late Contact Info) Description 11/23/[address] [facility] - Main Lab 299 [facility] [place] [phone] Vero Mike MD [address] [place], [place] [id number] Type 1 diabetes mellitus with hyperglycemia (CMS/HCC [...] AM EST Office Visit Orthopedic Surgery - [place] [address] [phone] Luciano Smith DPM [address] [phone] documented as of this encounter Procedures Procedure Name Priority Date/Time Associated Diagnosis Comments VITAMIN D 25 HYDROXY Routine 11/24/2024 6:16 AM EDT Type 1 diabetes mellitus with hyperglycemia (CMS/HCC V24, CMS/HCC V28) Old myocardial infarction Essential (primary) hypertension Vitamin D deficiency, unspecified COMPLETE BLOOD COUNT Routine 11/24/2024 6:16 AM EDT Type 1 diabetes mellitus with hyperglycemia ([facility] V24, [facility]/HCC V28) Old myocardial infarction Essential (primary) hypertension Vitamin D deficiency, unspecified THYROID STIMULATING HORMONE Routine 11/24/2024 6:16 AM EDT Type 1 diabetes mellitus with hyperglycemia ([facility]/HCC V24, [facility] V28) Old myocardial infarction Essential (primary) hypertension Vitamin D deficiency, unspecified HEMOGLOBIN A1C Routine 11/24/2024 6:16 AM EDT Type 1 diabetes mellitus with hyperglycemia ([facility]/HCC V24, [facility] V28) Old myocardial infarction Essential (primary) hypertension Vitamin D deficiency, unspecified VITAMIN B12 Routine 11/24/2024 6:16 AM EDT Type 1 diabetes mellitus with hyperglycemia ([facility]/HCC V24, [facility] V28) Old myocardial infarction Essential (primary) hypertension Vitamin D deficiency, unspecified COMPREHENSIVE METABOLIC PANEL Routine 11/24/2024 6:16 AM EDT Type 1 diabetes mellitus with hyperglycemia ([facility]/HCC V24, [facility] V28) Old myocardial infarction Essential (primary) hypertension Vitamin D deficiency, unspecified documented in this encounter Results * (ABNORMAL) Hemoglobin A1c (11/24/2024 6:16 AM EDT) Hemoglobin A1C 8.9(H) <6.5 % LAB CHEMISTRY METHOD 11/24/2024 12:29 PM EDT [facility] Mean Bld Glu Estim. 209 mg/dL LAB CHEMISTRY METHOD 11/24/2024 12:29 PM EDT [facility] Blood Venous blood specimen / Unknown Venipuncture / Unknown 11/24/2024 6:16 AM EDT 11/24/2024 10:24 AM EDT us Fahim A Rashid MD LAB BLOOD ORDERABLES Final Resul t [facility] [address] [place] [address], * (ABNORMAL) Complete blood count (11/24/2024 6:16 AM EDT) WBC 8.5 4.8 - 10.8 K/mcL LAB HEMETOLOGY METHOD 11/24/2024 11:00 AM [facility] RBC 3.80 3.80 - 4.80 M/mcL LAB HEMETOLOGY METHOD 11/24/2024 11:00 AM [facility] Hemoglobin 10.4(L) 11.5 - 16.0 g/dL LAB HEMETOLOGY METHOD 11/24/2024 11:00 AM [facility] Hematocrit 32.5(L) 35.0 - 47.0 % LAB HEMETOLOGY METHOD 11/24/2024 11:00 AM [facility] MCV 86.2 79.0 - 98.0 FL LAB HEMETOLOGY METHOD 11/24/2024 11:00 AM [facility] MCH 27.6 27.0 - 32.0 pcg LAB HEMETOLOGY METHOD 11/24/2024 11:00 AM [facility] MCHC 32.0 32.0 - 37.0 g/dL LAB HEMETOLOGY METHOD 11/24/2024 11:00 AM [facility] RDW 13.1 11.0 - 15.0 % LAB HEMETOLOGY METHOD 11/24/2024 11:00 AM [facility] Platelets 345 130 - 400 K/mcL LAB HEMETOLOGY METHOD 11/24/2024 11:00 AM [facility] MPV 10.1 7.0 - 11.0 FL LAB HEMETOLOGY METHOD 11/24/2024 11:00 AM EDT [facility] NRBC 0.0 <1.0 % LAB HEMETOLOGY METHOD 11/24/2024 11:00 AM EDT [facility] NRBC Absolute 0.00 <0.10 K/mcL LAB HEMETOLOGY METHOD 11/24/2024 11:00 AM T [facility] Blood Venous blood specimen / Unknown Venipuncture / Unknown 11/24/2024 6:16 AM EDT 11/24/2024 10:24 AM EDT us Vero Mike MD LAB BLOOD ORDERABLES Final Resul t [facility] [address] [place] [address], [place] [phone] * (ABNORMAL) Comprehensive metabolic panel (11/24/2024 6:16 AM EDT) Sodium 138 133 - 145 mmol/L LAB CHEMISTRY METHOD 11/24/2024 11:35 AM [facility] Potassium 4.5 3.5 - 5.5 mmol/L LAB CHEMISTRY METHOD 11/24/2024 11:35 AM [facility] Chloride 104 96 - 110 mmol/L LAB CHEMISTRY METHOD 11/24/2024 11:35 AM [facility] CO2 28 21 - 32 mmol/L LAB CHEMISTRY METHOD 11/24/2024 11:35 AM [facility] Anion Gap 6 3 - 11 LAB CHEMISTRY METHOD 11/24/2024 11:35 AM [facility] Glucose 77 70 - 100 mg/dL LAB CHEMISTRY METHOD 11/24/2024 11:35 AM [facility] BUN 21 5 - 25 mg/dL LAB CHEMISTRY METHOD 11/24/2024 11:35 AM [facility] Creatinine 0.96 0.50 - 1.10 mg/dL LAB CHEMISTRY METHOD 11/24/2024 11:35 AM [facility] eGFR 62 >=60 mL/min/1. 73m2 LAB CHEMISTRY METHOD 11/24/2024 11:35 AM [facility] Comment:Calculation based on the Chronic Kidney Disease Epidemiology Collaboration (CKD-EPI) equation refit without adjustment for race. BUN/Creatinine Ratio 21.9 LAB CHEMISTRY METHOD 11/24/2024 11:35 AM [facility] Calcium 9.2 8.5 - 10.5 mg/dL LAB CHEMISTRY METHOD 11/24/2024 11:35 AM [facility] AST (SGOT) 18 10 - 42 unit/L LAB CHEMISTRY METHOD 11/24/2024 11:35 AM [facility] ALT (SGPT) 26 10 - 60 unit/L LAB CHEMISTRY METHOD 11/24/2024 11:35 AM [facility] Alkaline Phosphatase 99 42 - 121 unit/L LAB CHEMISTRY METHOD 11/24/2024 11:35 AM [facility] Total Protein 5.6(L) 6.0 - 8.0 g/dL LAB CHEMISTRY METHOD 11/24/2024 11:35 AM [facility] Albumin 3.3 3.2 - 5.0 g/dL LAB CHEMISTRY METHOD 11/24/2024 11:35 AM [facility] Total Bilirubin 0.3 0.0 - 1.4 mg/dL LAB CHEMISTRY METHOD 11/24/2024 11:35 AM [facility] Blood Venous blood specimen / Unknown Venipuncture / Unknown 11/24/2024 6:16 AM EDT 11/24/2024 10:32 AM EDT us Vero Mike MD LAB BLOOD ORDERABLES Final Resul t [facility] [address] [place] [address], [place] [phone] * Thyroid stimulating hormone (11/24/2024 6:16 AM EDT) [facility] TSH 1.63 0.40 - 4.00 mcIU/mL LAB CHEMISTRY METHOD 11/24/2024 1:30 PM EDT [facility] Blood Venous blood specimen / Unknown Venipuncture / Unknown 11/24/2024 6:16 AM EDT 11/24/2024 10:32 AM EDT us Vero Mike MD LAB BLOOD ORDERABLES Final Resul t Performing Organization Address City/[facility] Co de Phone Number [facility] [address] [place] [address], [place] [phone] * Vitamin D 25 hydroxy (11/24/2024 6:16 AM EDT) [facility] Vit D, 25-Hydroxy 50.1 30.0 - 80.0 ng/mL LAB CHEMISTRY METHOD 11/24/2024 1:30 PM EDT [facility] Blood Venous blood specimen / Unknown Venipuncture / Unknown 11/24/2024 6:16 AM EDT 11/24/2024 10:32 AM EDT us Vero Mike MD LAB BLOOD ORDERABLES Final Resul t Performing Organization Address City/[facility]/ZIP Co de Phone Number [facility] [address] [place] [address], [place] [phone] * (ABNORMAL) Vitamin B12 (11/24/2024 6:16 AM EDT) [facility] Vitamin B-12 979(H) 250 - 900 pcg/mL LAB CHEMISTRY METHOD 11/24/2024 11:58 AM EDT [facility] Blood Venous blood specimen / Unknown Venipuncture / Unknown 11/24/2024 6:16 AM EDT 11/24/2024 10:32 AM EDT us Vero Mike MD LAB BLOOD ORDERABLES Final Resul t [facility] ([facility]) [facility] [address] [place] [address], documented in this encounter Visit Diagnoses Diagnosis Type 1 diabetes mellitus with hyperglycemia (CMS/[facility] V24, [facility] V28) Old myocardial infarction Essential (primary) hypertension Unspecified essential hypertension Vitamin D deficiency, unspecified documented in this encounter Care Teams Expansion Joint Finisher Relationship Specialty Start Date End Date Pascual Darnell MD [address] [place] [id number] PCP - General Internal Medicine 06/18/24 documented as of this encounter
--- OUTSIDE RECORDS SUMMARY | 2025-01-11 10:44 | XMS_ITS | Clinical Summary ---
Author Organization 175 [facility] Address 175 [place] [address] Phone Care Team Providers Care Process Lead Name Role Phone Pascual Darnell MD Primary Care Provi chio Allergies Active Allergy Reactions Criticality Noted Date Comments Clonazepam 09/02/2024 Medications No known medications Encounters Date Type Department Care Team Description 11/23/2024 Lab Requisition [facility] Lab [address] [place] [address] Vero Mike MD Type 1 diabetes mellitus with hyperglycemia (CMS/HCC V24, CMS/[facility] V28); Old myocardial infarction; Essential (primary) hypertension; Vitamin D deficiency, unspecified 11/16/2024 Lab Requisition [facility] Lab [address] [place] [address] Vero Mike MD Altered mental [...] AM EST Office Visit Orthopedic Surgery - [place] 250 175 [facility] 250 [place] [address] Luciano Smith, DPM [address] [phone] Health Maintenance Due Date Last [...] EDT Type 1 diabetes mellitus with hyperglycemia ([facility] V24, [facility] V28) Old myocardial infarction Essential (primary) [...] LAB CHEMISTRY METHOD 11/24/2024 1:30 PM EDT [facility] Blood Venous blood specimen / Unknown Venipuncture / Unknown 11/24/2024 6:16 AM EDT 11/24/2024 10:32 AM EDT us Vero Mike MD LAB BLOOD ORDERABLES Final Resul t [facility] [address] [place] [address], * (ABNORMAL) Complete blood count (11/24/2024 6:16 AM EDT) WBC 8.5 4.8 - 10.8 K/[facility] LAB HEMETOLOGY METHOD 11/24/2024 11:00 AM EDT [facility] RBC 3.80 3.80 - 4.80 M/mcL LAB HEMETOLOGY METHOD 11/24/2024 11:00 AM EDT [facility] Hemoglobin 10.4(L) 11.5 - [...] MD LAB BLOOD ORDERABLES Final Resul t [facility] [address] [place] [address], [place] [phone] * Thyroid stimulating hormone (11/24/2024 6:16 AM EDT) Pathologist [facility] TSH 1.63 0.40 - 4.00 mcIU/mL LAB CHEMISTRY METHOD 11/24/2024 1:30 PM EDT [facility] Blood Venous blood specimen / Unknown Venipuncture / Unknown 11/24/2024 6:16 AM EDT 11/24/2024 10:32 AM EDT us Vero Mike MD LAB BLOOD ORDERABLES Final Resul t Performing Organization Address [facility]/ZIP Co de Phone Number [facility] [address] [place] [address], [place] [phone] * (ABNORMAL) Hemoglobin A1c (11/24/2024 6:16 AM EDT) [facility] Hemoglobin A1C 8.9(H) <6.5 % LAB CHEMISTRY METHOD 11/24/2024 12:29 PM EDT [facility] Mean Bld Glu Estim. 209 mg/dL LAB CHEMISTRY METHOD 11/24/2024 12:29 PM EDT [facility] Blood Venous blood specimen / Unknown Venipuncture / Unknown 11/24/2024 6:16 AM EDT 11/24/2024 10:24 AM EDT us Vero Mike MD LAB BLOOD ORDERABLES Final Resul t Performing Organization Address City/[facility]/ZIP Co de Phone Number [facility] [address] [place] [address], [place] [phone] * (ABNORMAL) Vitamin B12 (11/24/2024 6:16 AM EDT) [facility] Vitamin B-12 979(H) 250 - 900 pcg/mL LAB CHEMISTRY METHOD 11/24/2024 11:58 AM [facility] Blood Venous blood specimen / Unknown Venipuncture / Unknown 11/24/2024 6:16 AM EDT 11/24/2024 10:32 AM EDT us Vero Mike MD LAB BLOOD ORDERABLES Final Resul t [facility] [address] [place] [address], [place] [phone] * (ABNORMAL) Comprehensive metabolic panel (11/24/2024 6:16 [...] MD LAB BLOOD ORDERABLES Final Resul t [facility] [address] [place] [address], * (ABNORMAL) Urinalysis with reflex microscopic (11/15/2024 12:20 PM EDT) Specific [place] Urine 1.012 1.003 - 1.030 LAB URINALYSIS [...] - AUTOMATED METHOD 11/16/2024 9:53 AM EDT [facility] Hyaline Casts, Urine 1.2 0 - 3 /LPF LAB URINALYSIS - AUTOMATED METHOD 11/16/2024 9:53 AM EDT [facility] Urine Urine specimen obtained by clean catch procedure / Unknown Non-blood Collection / Unknown 11/15/2024 12:20 PM EDT 11/16/2024 9:33 AM EDT us Vero Mike MD LAB URINE ORDERABLES Final Resul t [facility] [address] [place] [address], [place] [phone] * (ABNORMAL) Culture urine (11/15/2024 12:20 PM EDT) Culture, Urine >=100,000 CFU/mL Klebsiella pneumoniae ssp pneumoniae(A) ANA 11/18/2024 10:57 AM EDT [facility] Comment: This is an [...] GENERAL ORDER ELIU Final Result [facility] [address] [place] [address], [place] [phone] from Last 3 Months Insurance [employer] Member Subscriber Plan / Payer (Ef fective 2015-Present) Name:Brandie WILLIS Relation to Subscriber:Self Name:Brandie Santana Payer ID:[id number] Group ID:[id number] Type:Not on file Address: [place] [address] [address] [place] [id number] Care Teams Process Lead Relationship Specialty Start Date End Date Pascual Darnell MD [address] [place] [address] PCP - General Internal Medicine 06/18/24
== END 2025-01-11 10:54 | disposition home or self-care (01) ==
LOC: HO.RHES 09:12
PROVIDERS: PCP Internal Medicine; Visit Provider Student in an Organized Health Care Education/Training Program
DX: M05.79 Rheumatoid arthritis with rheumatoid factor of multiple sites without organ or systems involvement (principal); M81.0 Age-related osteoporosis without current pathological fracture; Z51.81 Encounter for therapeutic drug level monitoring; Z79.620 Long term (current) use of immunosuppressive biologic; Z79.83 Long term (current) use of bisphosphonates
CPT/HCPCS: 99215; G2211

== ENCOUNTER → 2025-01-11 09:11 | Outpatient (BNVA) | payer OTHER, SELFPAY | PROVIDERS: PCP Internal Medicine; Visit Provider Student in an Organized Health Care Education/Training Program | DX: M05.70 Rheumatoid arthritis with rheumatoid factor of unspecified site without organ or systems involvement (principal); M81.0 Age-related osteoporosis without current pathological fracture; Z51.81 Encounter for therapeutic drug level monitoring; Z79.620 Long term (current) use of immunosuppressive biologic; Z79.83 Long term (current) use of bisphosphonates | CPT/HCPCS: 99212 ==

== ENCOUNTER 2025-01-13 08:46 | Outpatient (AMB) | payer OTHER, SELFPAY ==
--- NOTE | 2025-01-13 08:50 | A.OFFVIS_ITS ---
Vital Signs 01/13/25 08:51 Height 4 ft 11 in Weight 149 lb 14.629 oz BMI 30.3 BP 120/68 Blood Pressure Location Lt brachial Position Sitting Pulse 72 Pulse Source Pulse Oximeter Intake Visit Reasons: 4 mth s/p testing r/s 12-02-24 International Exchange Coordinator Required: Yes International Exchange Coordinator Name: [id number] Allergies lorazepam (LORAZEPAM) Allergy (Severe, Verified 01/11/25 09:50) DELIRIUM celecoxib (From Celebrex) Allergy (Intermediate, Verified 01/11/25 09:50) ITCHING tramadol (TRAMADOL) Allergy (Intermediate, Verified 01/11/25 09:50) ITCHING zolpidem (Ambien) Allergy (Unknown, Verified 01/11/25 09:50) unknown Medication List - Last Reconciled 01/13/25 by Osman Uribe MD acetaminophen 650 mg (2 x 325 mg) PO Q6H PRN Actemra ACTPen (tocilizumab) 162 mg (0.9 mL) subcut Q2W NS albuterol sulfate 90 mcg/actuation 2 puffs inhalation Q4-6H PRN albuterol sulfate 2.5 mg (3 mL) inhalation Q3H PRN amlodipine 10 mg PO DAILY aripiprazole 20 mg PO DAILY atorvastatin 20 mg PO DAILY bisacodyl 10 mg (2 x 5 mg) PO BEDTIME blood sugar diagnostic (FreeStyle Lite Strips) TEST BLOOD SUGAR 8 TIMES EVERY DAY blood-glucose meter (FreeStyle Lite Meter kit) As directed blood-glucose sensor (Ritani G7 Sensor device) As directed every 10 days calcium citrate 400 mg (2 x 200 mg (950 mg)) PO BID carvedilol 6.25 mg PO BID cholecalciferol (vitamin D3) (Vitamin D3) 50 mcg PO DAILY clonazepam 1 tab PO Q8H PRN clopidogrel 75 mg PO DAILY esomeprazole magnesium 40 mg PO DAILY@0630 Fiasp FlexTouch U-100 Insulin 100 unit/mL (3 mL) (insulin aspart (niacinamide)) See Protocol units subcut TIDAC NS folic acid 1 mg PO DAILY gabapentin 100 mg PO BID glucagon 3 mg/actuation (Baqsimi) 3 mg intranasal ONCE PRN 30 days insulin degludec (Tresiba FlexTouch U-100 insulin) 20 units (0.2 mL) subcut DAILY insulin syringe-needle U-100 (BD Insulin Syringe Ultra-Fine) As directed 3 times per day levothyroxine 125 mcg PO DAILY@0600 linaclotide (Linzess) 145 mcg PO DAILY losartan 100 mg PO DAILY melatonin 3 mg PO BEDTIME nebulizers As directed ondansetron 4 mg PO Q8H PRN oxycodone 5 mg PO Q12H PRN pen needle, diabetic (Pentips Pen Needle) USE FIVE TIMES DAILY prazosin 6 mg PO BEDTIME prednisone 5 mg PO DIRECTED simethicone (Gas Relief (simethicone)) 125 mg PO QID PRN venlafaxine ER 75 mg PO DAILY zinc gluconate 30 mg PO DAILY HPI Comments Details: Brandie returns for follow-up regarding coronary disease. To recall, in 2017, she underwent cardiac catheterization following an NSTEMI in the context of diabetic ketoacidosis. She only had mild disease without any obstructive lesions. For the most part, she is feeling fine. He has got no clinical symptoms like angina or infact anything cardiac sounding. [facility] Medical History Heart palpitations Hypoglycemia due to insulin Elevated parathyroid hormone Osteoporosis Hyperlipidemia (04/21/1959) Depressive disorder (04/21/1959) Nutritional anemia (04/21/1959) Shortness of breath Hypothyroidism (04/21/1959) Anemia Chronic gastritis NSTEMI (non-ST elevated myocardial infarction) Recurrent falls (12/04/11) Iron deficiency anemia (04/21/1959) Fibromyositis (04/21/1959) Eczema (04/21/1959) High risk medication use Hepatitis C antibody positive in blood Screening for osteoporosis Screening for viral disease Joint swelling Overweight (BMI 25.0-29.9) Neck pain Swelling of knee joint, right Intra-abdominal abscess Diabetes Elevated liver function tests Intestinal malabsorption following gastrectomy Obesity (BMI 30-39.9) 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 Hypertension Cholecystitis Hyperlipidemia, unspecified Essential hypertension Atherosclerotic cardiovascular disease Fibromyalgia Folliculitis Anxiety Depression History of myocardial infarction Diabetes type 1, uncontrolled 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 Mother CVA (cerebral vascular accident) Sister Hypertension Brother Hypertension Liver cancer Social History Household Members: None Housing: Apartment Are you a primary director long term care to a significant other at home: No Do you presently have visiting nurse or other home services: Yes Alcohol intake: never Patient Tobacco Use Status: Never used Tobacco Advance Directives Date on File: 09/17/23 service: No Current occupational status: disabled Current occupation: right hand dominant Review of Systems Const Reports body aches, Reports chills and Denies weakness ENT Denies dizziness Card Denies chest pain, Denies chest pain with activity, Denies syncope, Denies rapid heart rate, Denies pedal edema, Denies edema, Denies leg edema, Denies lightheadedness, Denies palpitations, Denies dyspnea, Denies dyspnea on exertion and Denies orthopnea Resp Denies cough, Denies dyspnea and Denies dyspnea on exertion GI Denies hematochezia and Denies change in stool character Musc Denies abnormal gait, Denies muscle cramps, Denies muscle weakness, Denies numbness, Denies radiating pain into limb and Denies tingling Neuro Denies abnormal gait, Denies dizziness, Denies syncope, Denies numbness, Denies tingling and Denies weakness Endo Denies palpitations Physical Exam Vital Signs: Last Vital Signs Pulse 72 01/13/25 08:51 BP 120/68 01/13/25 08:51 BMI result Body Mass Index 30.3 Const General: comfortable and no acute distress Orientation/consciousness: patient oriented x3 HEENT Other: Unremarkable Head: Yes normal to inspection Neck Neck: Yes normal visual inspection Chest Chest palpation & inspection: normal inspection of the chest Resp Auscultation: clear to auscultation bilaterally Cardio Palpation: normal PMI Heart sounds: S1 normal heart sound present, S2 normal heart sound present, no g allops, Murmur heart sound present systolic II/ and at the right sternal border and no rubs GI Palpation (GI): Soft to palpation Back/Spine/Pelvis Other: unremarkable Skin General skin exam: no rashes or lesions noted Neuro General: patient oriented x3 Extrem General: Yes normal to inspection Psych Mental Status: mental status grossly normal Assessment & Plan Assessment & Plan (1) Atherosclerotic cardiovascular disease: Code(s): I25.10 - Atherosclerotic heart disease of twenty-nine palms coronary artery without angina pectoris Category: Medical (2) Mitral annular calcification: Code(s): I34.81 - Nonrheumatic mitral (valve) annulus calcification Category: Medical (3) Type 2 diabetes mellitus with unspecified complications: Code(s): E11.8 - Type 2 diabetes mellitus with unspecified complications Category: Medical (4) Essential hypertension: Code(s): I10 - Essential (primary) hypertension Category: Medical (5) Dyslipidemia: Code(s): E78.5 - Hyperlipidemia, unspecified Category: Medical Plan Cardiac catheterization in the past - 30% disease in the ostial left anterior descending artery. There was no clear culprit for the NSTEMI. In the recent echocardiogram, LVEF is 60%. Moderate mitral annular calcification. Small pericardial effusion. Overall, mainly risk factor modification. Optimal management of diabetes. Her last hemoglobin A1c is 8.3%. Previous levels are also high. On insulin. Blood pressure seems stable. Lipids are controlled on statins. On statins and cholesterol is well controlled. LDL is 42 mg/dL. Due to bariatric surgery history, she is on Plavix and not aspirin. No changes with that, as she has been doing okay. Follow up in one year. In the interim, she will call with concerns. Medications: Changed From folic acid 1 mg PO DAILY 90 tabs 4RF To folic acid 1 mg PO DAILY Coding Level of Care Code Est Pt Level 4 (70618) Complex EM visit Add On G2211 Diagnoses Atherosclerotic cardiovascular disease I25.10 Mitral annular calcification I34.81 Type 2 diabetes mellitus with unspecified complications E11.8 Essential hypertension I10 Dyslipidemia E78.5
[2025-01-13 08:51] VITALS: BP 120/68; PULSE 72; BMI 30.3
--- OUTSIDE RECORDS SUMMARY | 2025-01-13 09:21 | XMS_ITS | Encounter Summary ---
Author Organization [employer] Address [address] [facility] 7t [place] [address] Care Team Providers Care Plaster Mechanic Name Role Phone Pascual Daly MD Primary Care Provide r Fani Heck PharmD Unavailable [phone] Dasia Waters PharmD Unavailable [phone] Reason for Visit * Reason Comments Med Refill Encounter Details Date Type Department Care Team (Late st Contact Info) Description 07/20/2023 Refill [facility] [address] [place] [address] Titi Gray FNP Major depressive disorder with [...] Description 01/17/2025 10:30 AM EDT Medication Management [facility] [address] [place] [address] Dasia Waters, KristiD 230 [place] [address] 01/20/2025 10:30 AM EDT Clinical Support [facility] [address] [place] [address] Amanda Fernández, RN 505 [place] [address] 01/26/2025 9:00 AM EDT Office Visit [facility]ULT [facility] [address] [place] [address] Christian Winchester DDS [address] [place] [address] 02/17/2025 10:15 AM EDT Office Visit [facility] [address] [place] [address] Gabriela Gaitan [address] [place] [address] documented as of this encounter Goals Goal [...] documented as of this encounter Care Teams Plaster Mechanic Relationship Specialty Start Date End Date Pascual Daly MD [address] [place] [address] PCP - General Internal Medicine 02/22/14 Fani Heck, PharmD [address] [place] [address] Pharmacist Internal Medicine 12/16/22 08/15/24 Dasia Waters PharmD [address] [place] [address] Pharmacist Internal Medicine 08/16/24 Iker VNA 12/18/24 documented as of this encounter
--- OUTSIDE RECORDS SUMMARY | 2025-01-13 09:21 | XMS_ITS | Encounter Summary ---
Author Organization [employer] Address [address] [facility] 7t [place] [address] Care Team Providers Care Back Seam Stitcher Name Role Phone Pascual Daly MD Primary Care Provide r Fani Heck PharmD Unavailable [phone] Dasia Waters PharmD Unavailable [phone] Reason for Visit * Reason Comments Med Refill Encounter Details Date Type Department Care Team ([facility] st Contact Info) Description 03/27/2023 Refill [facility] MED & PEDS [address] [place], [place] [phone] Titi Gray FNP Major depressive disorder with [...] [facility] [address] [place] [address] Dasia Waters, PharmD 230 [place] [address] 01/20/2025 10:30 AM EDT Clinical Support [facility] PEDS [address] [place] [address] Amanda Fernández, RN [address] [place] [address] 01/26/2025 9:00 AM EDT Office Visit [facility] ADULT DENTAL [address] [place] [address] Christian Winchester DDS [address] [place] [address] 02/17/2025 10:15 AM EDT Office Visit [facility] ADULT DENTAL [address] [place] [address] Gabriela Gaitan [address] [place] [address] documented as of this encounter Goals Goal [...] documented as of this encounter Care Teams Back Seam Stitcher Relationship Specialty Start Date End Date Pascual Daly MD [address] [place] [address] PCP - General Internal Medicine 02/22/14 Fani Heck, PharmD [address] [place] [address] Pharmacist Internal Medicine 12/16/22 08/15/24 Dasia Waters PharmD [address] [place] [address] Pharmacist Internal Medicine 08/16/24 Iker VNA 12/18/24 documented as of this encounter
--- OUTSIDE RECORDS SUMMARY | 2025-01-13 09:21 | XMS_ITS | Encounter Summary ---
Author Organization [employer] Address [address] [facility] 7t [place] [address] Care Team Providers Care Manager Payer Name Role Phone Pascual Daly MD Primary Care Provide r Fani Heck PharmD Unavailable [phone] Dasia Waters PharmD Unavailable [phone] Reason for Visit * Reason Comments Med Refill Encounter Details Date Type Department Care Team (Late Contact Info) Description 10/02/[address] [facility] MEDICINE [address] [place], [place] [phone] Titi Gray FNP Major depressive disorder with [...] [facility] MED[facility]INE [address] [place], [place] [phone] Dasia Waters PharmD [address] [place], [place] [phone] 01/20/2025 10:30 AM EDT Clinical Support [facility] CHC MED & PEDS [address] [place], [place] [phone] Amanda Fernández, RN [address] [place], [place] 01/26/2025 9:00 AM EDT Office Visit [facility] ADULT DENTAL [address] [place] [address] Christian Winchester DDS [address] [place] [address] 02/17/2025 10:15 AM EDT Office Visit [facility] ADULT DENTAL [address] [place] [address] Gabriela Gaitan [address] [place] [address] documented as of this encounter Goals Goal [...] as of this encounter Care Teams Manager Payer Relationship Specialty Start Date End Date Pascual Daly MD [address] [place] [address] PCP - General Internal Medicine 02/22/14 Fani Heck, PharmD [address] [place] [address] Pharmacist Internal Medicine 12/16/22 08/15/24 Dasia Waters, PharmD [address] [place] [address] Pharmacist Internal Medicine 08/16/24 Iker CORDERO 12/18/24 documented as of this encounter
--- OUTSIDE RECORDS SUMMARY | 2025-01-13 09:21 | XMS_ITS | Encounter Summary ---
Author Organization [employer] Address [address] [facility] 7t [place] [address] Care Team Providers Care Dairy Specialist Name Role Phone Pascual Daly MD Primary Care Provide r Dasia Waters PharmD Unavailable [phone] Reason for Visit * Reason Onset Date Comments Med Refill 08/31/2024 Encounter Details Date Type Department Care Team ([facility] st Contact Info) Description 08/31/2024 Telephone [facility] [address] [place] [address] Pascual Daly MD [address] [place] [address] Med Refill Social History Tobacco Use Types [...] immediate release tablet To be sent to: [facility] documented in this encounter Plan of Treatment Upcoming Encounters Date Type Department Care Team (Late st Contact Info) Description 01/17/2025 10:30 AM EDT Medication Management [facility] [address] [place] [address] Dasia Waters, PharmD [address] [place] [address] 01/20/2025 10:30 AM EDT Clinical Support [facility] MED [facility] PED[facility] [address] [place] [address] Amanda Fernández, RN 505 [place] [address] 01/26/2025 9:00 AM EDT Office Visit [facility] ADULT DENTAL [address] [place], [place] [phone] Christian Winchester DDS [address] [place], [place] [phone] 02/17/2025 10:15 AM EDT Office Visit [facility] ADULT DENT[facility] [address] [place], [place] [phone] Gabriela Gaitan [address] [place], [place] [phone] documented as of this encounter Goals Goal [...] documented as of this encounter Care Teams Dairy Specialist Relationship Specialty Start Date End Date Pascual Daly MD [address] [place], [place] [phone] PCP - General Internal Medicine 02/22/14 Dasia Waters PharmD [address] [place] [address] [phone] Pharmacist Internal Medicine 08/16/24 Iker MARCUSA 12/18/24 documented as of this encounter
--- OUTSIDE RECORDS SUMMARY | 2025-01-13 09:21 | XMS_ITS | Encounter Summary ---
Author Organization [employer] Address [address] [facility] 7t [place] [address] Care Team Providers Care Accounting Lecturer Name Role Phone Pascual Daly MD Primary Care Provide r Fani Heck PharmD Unavailable [phone] Dasia Waters PharmD Unavailable [phone] Reason for Visit * Reason Comments Med Refill Encounter Details Date Type Department Care Team (Late st Contact Info) Description 08/26/2023 Refill [facility] [address] [place], [place] [phone] Momo Rizo MD [address] [place], [place] [phone] Benign hypertension Social History Tobacco Use Types [...] Management [facility] MEDICINE [address] [place] [address] Dasia Waters, PharmD [address] [place] [address] 01/20/2025 10:30 AM EDT Clinical Support [facility] CH[facility] MED & PEDS [address] [place] [address] Amanda Fernández, RN [address] [place] [address] 01/26/2025 9:00 AM EDT Office Visit [facility] ADULT DENTAL [address] [place] [address] Christian Winchester DDS [address] [place] [address] 02/17/2025 10:15 AM EDT Office Visit [facility] ADULT DENTAL [address] [place] [address] Gabriela Gaitan [address] [place] [address] documented as of this encounter Goals Goal [...] documented as of this encounter Care Teams Accounting Lecturer Relationship Specialty Start Date End Date Pascual Daly MD [address] [place] [address] PCP - General Internal Medicine 02/22/14 Fani Heck, PharmD [address] [place] [address] Pharmacist Internal Medicine 12/16/22 08/15/24 Dasia Waters PharmD [address] [place] [address] Pharmacist Internal Medicine 08/16/24 Iker MARCUSA 12/18/24 documented as of this encounter
--- OUTSIDE RECORDS SUMMARY | 2025-01-13 09:21 | XMS_ITS | Encounter Summary ---
Author Organization [employer] Address [address] [facility] 7t [place] [address] Care Team Providers Care Home Theater Experience Expert Name Role Phone Pascual Daly MD Primary Care Provide r Fani Heck PharmD Unavailable + Dasia Waters PharmD Unavailable [phone] Encounter Details Date Type Department Care Team (Late st Contact Info) Description 09/25/[address] [facility] [address] [place] [address] Pascual Daly MD 230 [place] [address] Social History Tobacco Use Types Packs/Day Years [...] 01/17/2025 10:30 AM EDT Medication Management [facility] [address] [place] [address] Dasia Waters, PharmD [address] [place] [address] 01/20/2025 10:30 AM EDT Clinical Support [facility] MED [facility] PEDS [address] [place] [address] Amanda Fernández, RN [address] [place] [address] 01/26/2025 9:00 AM EDT Office Visit [facility] ADULT DENTAL [address] [place] [address] Christian Winchester DDS [address] [place] [address] 02/17/2025 10:15 AM EDT Office Visit [facility] ADULT DENT[facility] [address] [place] [address] Gabriela Gaitan [address] [place] [address] documented as of this encounter Goals Goal [...] of this encounter Care Teams Home Theater Experience Expert Relationship Specialty Start Date End Date Pascual Daly MD [address] [place] [address] PCP - General Internal Medicine 02/22/14 Fani Heck, PharmD [address] [place] [address] Pharmacist Internal Medicine 12/16/22 08/15/24 Dasia Waters PharmD [address] [place] [address] Pharmacist Internal Medicine 08/16/24 Iker VNA 12/18/24 documented as of this encounter
--- OUTSIDE RECORDS SUMMARY | 2025-01-13 09:21 | XMS_ITS | Encounter Summary ---
Author Organization [employer] Address [address] [facility] 7t [place] [address] Care Team Providers Care Contact Printer Dry Film Name Role Phone Pascual Daly MD Primary Care Provide r Fani Heck PharmD Unavailable [phone] Dasia Waters PharmD Unavailable [phone] Encounter Details Date Type Department Care Team (Late st Contact Info) Description 09/25/2023 Telephone [facility] [address] [place] [address] Pascual Daly MD [address] [place] [address] Social History Tobacco Use Types Packs/Day Years [...] [facility] [address] [place] [address] Dasia Waters, PharmD [address] [place] [address] 01/20/2025 10:30 AM EDT Clinical Support [facility] MED [facility] PEDS [address] [place] [address] Amanda Fernández, RN [address] [place] [address] 01/26/2025 9:00 AM EDT Office Visit [facility] ADULT DENTAL [address] [place] [address] Christian Winchester DDS [address] [place] [address] 02/17/2025 10:15 AM EDT Office Visit [facility] ADULT DENTAL [address] [place] [address] Gabriela Gaitan [address] [place] [address] documented as of this encounter Goals Goal Patient Goal Type Associated Problems Recent Progress Patient-Stated? Author Blood Pressure < 140/90 Blood Pressure 126/59( 025 9:28 AM EDT) No Fani Heck, Woody documented as of this encounter Visit Diagnoses Diagnosis Type 2 diabetes mellitus without complication, with long-term current use of insulin ([facility]) documented in this encounter Additional Health Concerns Assessment Noted Time PHQ-9 Depression Total Score: 11 024 10:24 AM EST documented as of this encounter Care Teams Contact Printer Dry Film Relationship Specialty Start Date End Date Pascual Daly MD [address] [place] [phone] PCP - General Internal Medicine 02/22/14 Fani Heck, KristiD [address] [place] [phone] Pharmacist Internal Medicine 12/16/22 08/15/24 Dasia Waters PharmD [address] [place] [phone] Pharmacist Internal Medicine 08/16/24 Iker CORDERO 12/18/24 documented as of this encounter
--- OUTSIDE RECORDS SUMMARY | 2025-01-13 09:21 | XMS_ITS | Clinical Summary ---
Author Organization 175 [facility] Address [address] [place] [address] Phone Care Team Providers Care Police Patrol Officer Name Role Phone Pascual Darnell MD Primary Care Provi chio Allergies Active Allergy Reactions Criticality Noted Date Comments Clonazepam 09/02/2024 Medications No known medications Encounters Date Type Department Care Team Description 11/23/2024 Lab Requisition [facility] [address] [place] [address] Vero Mike MD Type 1 diabetes mellitus with hyperglycemia (CMS/HCC V24, CMS/[facility] V28); Old myocardial infarction; Essential (primary) hypertension; Vitamin D deficiency, unspecified 11/16/2024 Lab Requisition [facility] [address] [place] [address] Vero Mike MD Altered mental [...] Upcoming Encounters Date Type Department Care Team ([facility] st Contact Info) Description 03/15/2025 10:15 AM EST Office Visit Orthopedic Surgery - [place] [address] [facility] [address] [place] [address] Luciano Smith, DPM [address] [address] Health Maintenance Due Date Last [...] EDT Type 1 diabetes mellitus with hyperglycemia ([facility], [facility] V24, [facility], [facility] V28) Old myocardial infarction Essential (primary) hypertension [...] LAB CHEMISTRY METHOD 11/24/2024 1:30 PM EDT [facility] Blood Venous blood specimen / Unknown Venipuncture / Unknown 11/24/2024 6:16 AM EDT 11/24/2024 10:32 AM EDT us Vero Mike MD LAB BLOOD ORDERABLES Final Resul t [facility] [address] [place] [address], * (ABNORMAL) Complete blood count (11/24/2024 6:16 AM EDT) WBC 8.5 4.8 - 10.8 K/[facility] LAB HEMETOLOGY METHOD 11/24/2024 11:00 AM EDT [facility] RBC 3.80 3.80 - 4.80 M/mcL LAB HEMETOLOGY METHOD 11/24/2024 11:00 AM EDT [facility] Hemoglobin 10.4(L) 11.5 - 16.0 [...] MD LAB BLOOD ORDERABLES Final Resul t [facility] [address] [place] [address], [place] [phone] * Thyroid stimulating hormone (11/24/2024 6:16 AM EDT) Pathologist [facility] TSH 1.63 0.40 - 4.00 mcIU/mL LAB CHEMISTRY METHOD 11/24/2024 1:30 PM EDT [facility] Blood Venous blood specimen / Unknown Venipuncture / Unknown 11/24/2024 6:16 AM EDT 11/24/2024 10:32 AM EDT us Vero Mike MD LAB BLOOD ORDERABLES Final Resul t Performing Organization Address [facility]/ZIP Co de Phone Number [facility] [address] [place] [address], [place] [phone] * (ABNORMAL) Hemoglobin A1c (11/24/2024 6:16 AM EDT) [facility] Hemoglobin A1C 8.9(H) <6.5 % LAB CHEMISTRY METHOD 11/24/2024 12:29 PM EDT [facility] Mean Bld Glu Estim. 209 mg/dL LAB CHEMISTRY METHOD 11/24/2024 12:29 PM EDT [facility] Blood Venous blood specimen / Unknown Venipuncture / Unknown 11/24/2024 6:16 AM EDT 11/24/2024 10:24 AM EDT us Vero Mike MD LAB BLOOD ORDERABLES Final Resul t Performing Organization Address City/[facility]/ZIP Co de Phone Number [facility] [address] [place] [address], [place] [phone] * (ABNORMAL) Vitamin B12 (11/24/2024 6:16 AM EDT) [facility] Vitamin B-12 979(H) 250 - 900 pcg/mL LAB CHEMISTRY METHOD 11/24/2024 11:58 AM [facility] Blood Venous blood specimen / Unknown Venipuncture / Unknown 11/24/2024 6:16 AM EDT 11/24/2024 10:32 AM EDT us Vero Mike MD LAB BLOOD ORDERABLES Final Resul t [facility] [address] [place] [address], [place] [phone] * (ABNORMAL) Comprehensive metabolic panel (11/24/2024 6:16 [...] MD LAB BLOOD ORDERABLES Final Resul t [facility] [address] [place] [address], * (ABNORMAL) Urinalysis with reflex microscopic (11/15/2024 12:20 PM EDT) Specific [place] Urine 1.012 1.003 - 1.030 LAB URINALYSIS [...] - AUTOMATED METHOD 11/16/2024 9:53 AM EDT [facility] Hyaline Casts, Urine 1.2 0 - 3 /LPF LAB URINALYSIS - AUTOMATED METHOD 11/16/2024 9:53 AM EDT [facility] Urine Urine specimen obtained by clean catch procedure / Unknown Non-blood Collection / Unknown 11/15/2024 12:20 PM EDT 11/16/2024 9:33 AM EDT us Vero Mike MD LAB URINE ORDERABLES Final Resul t [facility] [address] [place] [address], [place] [phone] * (ABNORMAL) Culture urine (11/15/2024 12:20 PM EDT) Culture, Urine >=100,000 CFU/mL Klebsiella pneumoniae ssp pneumoniae(A) ANA 11/18/2024 10:57 AM EDT [facility] Comment: This is an edited [...] MICROBIOLOGY - GENERAL ORDER ELIU Final Result [facility] ([facility]) [facility] [address] [place] [address], [place] [phone] from Last 3 Months Insurance [employer] MED[employer] Member Subscriber Plan / Payer (Ef fective 2015-Present) Name:Brandie WILLIS Relation to Subscriber:Self Name:Brandie Santana Payer ID:[id number] Group ID:[id number] Type:Not on file Address: [place] [address] [address] [place] [address] Care Teams Police Patrol Officer Relationship Specialty Start Date End Date Pascual Darnell MD [address] [place] [address] PCP - General Internal Medicine 06/18/24
--- OUTSIDE RECORDS SUMMARY | 2025-01-13 09:21 | XMS_ITS | Encounter Summary ---
Author Organization [employer] Address [address] [facility] [address] [place] [address] Care Team Providers Care Highway Maintainer Name Role Phone Pascual Daly MD Primary Care Provide r Fani Heck PharmD Unavailable + Dasia Waters PharmD Unavailable [phone] Reason for Visit * Reason Comments Med Refill Encounter Details Date Type Department Care Team ([facility] st Contact Info) Description 09/26/2023 Refill [facility] [address] [place] [address] Pascual Daly MD [address] [place] [address] Social History Tobacco Use Types Packs/Day Years [...] AM EDT Medication Management [facility] [address] [place] [phone] Dasia Waters, PharmD [address] [place] [address] 01/20/2025 10:30 AM EDT Clinical Support [facility] MED & PEDS [address] [place] [address] Amanda Fernández, RN [address] [place] [address] 01/26/2025 9:00 AM EDT Office Visit [facility] ADULT DENTAL [address] [place] [phone] Christian Winchester DDS [address] [place] [address] 02/17/2025 10:15 AM EDT Office Visit [facility] ADULT DENTAL [address] [place] [address] Gabriela Gaitan [address] [place] [address] documented as of this encounter Goals Goal [...] documented as of this encounter Care Teams Highway Maintainer Relationship Specialty Start Date End Date Pascual Daly MD [address] [place] [address] PCP - General Internal Medicine 02/22/14 Fani Heck, PharmD [address] [place] [address] Pharmacist Internal Medicine 12/16/22 08/15/24 Dasia Waters, KristiD [address] [place] [address] Pharmacist Internal Medicine 08/16/24 Iker MARCUSA 12/18/24 documented as of this encounter
--- OUTSIDE RECORDS SUMMARY | 2025-01-13 09:21 | XMS_ITS | Encounter Summary ---
Author Organization [employer] Address [address] [facility] [address] [place] [address] Care Team Providers Care Enterprise Systems Architect Name Role Phone Pascual Daly MD Primary Care Provide r Dasia Waters PharmD Unavailable [phone] Reason for Visit * Reason Onset Date Comments Med Refill 09/30/2024 Encounter Details Date Type Department Care Team ([facility] st Contact Info) Description 09/30/2024 Telephone [facility] MED[facility]INE [address] [place] [address] Pascual Daly MD [address] [place] [address] Med Refill Social History Tobacco Use Types [...] immediate release tablet To be sent to: [facility] documented in this encounter Plan of Treatment Upcoming Encounters Date Type Department Care Team (Late st Contact Info) Description 01/17/2025 10:30 AM EDT Medication Management [facility] [address] [place] [address] Dasia Waters, PharmD [address] [place] [address] 01/20/2025 10:30 AM EDT Clinical Support [facility] MED & PEDS [address] [place] [address] Amanda Fernández, RN [address] [place] [address] 01/26/2025 9:00 AM EDT Office Visit [facility] ADULT DENTAL [address] [place], [place] [phone] Christian Winchester DDS [address] [place], [place] [phone] 02/17/2025 10:15 AM EDT Office Visit [facility] ADULT DENTAL [address] [place], [place] [phone] Gabriela Gaitan [address] [place], [place] [phone] documented as of this encounter Goals Goal [...] as of this encounter Care Teams Enterprise Systems Architect Relationship Specialty Start Date End Date Pascual Daly MD [address] [place], [place] [phone] PCP - General Internal Medicine 02/22/14 Dasia Waters PharmD [address] [place] [phone] Pharmacist Internal Medicine 08/16/24 Iker MARCUSA 12/18/24 documented as of this encounter
--- OUTSIDE RECORDS SUMMARY | 2025-01-13 09:22 | XMS_ITS | Clinical Summary ---
Author Organization [email or web address] Address [address] [facility] 7t [place] [address] Care Team Providers Care Treating Engineer Helper Name Role Phone Pascual Daly MD Primary Care Provide r Dasia Waters PharmD Unavailable [phone] Allergies Active Allergy Reactions Criticality Noted Date [...] for 30 minutes following use. 473 mL 5 Active losartan (Cozaar) 100 MG tabletIndication s:Benign hypertension TAKE 1 TABLET BY MOUTH EVERY MORNING 90 tablet 1 5 Active oxyCODONE (Roxicodone) 5 MG immediate release tabletIndication s:Long-term current use of opiate analgesic Take 1 tablet (5 mg) by mouth every 12 (twelve) hours if needed for severe pain for up to 28 days. 56 tablet 5 025 Active Active Problems Problem Noted Date Diagnosed Date Urinary incontinence 01/04/2025 Assessment & Plan (01/04/2025 9:32 AM EDT): Pt with c/o this Plan: U/A Urology referral Aphthous ulcer 09/16/2024 Coronary artery disease invo lving [place] coronary artery of [place] heart without angina pectoris 08/12/2024 Assessment & [...] (01/04/2025 9:38 AM EDT): Patient admitted to [facility] from (11/08/24 - 11/10/24) S/P fall and head injury at the visit with hematology. Eventually admitted for head injury and wrist injury. Patient's 4th finger was dislocated, lip, nose, and forehead were lacerated. Physical Therapy recommended rehabilitation. Eventually discharged to [facility] for not meeting medical necessity for hospitalization. Instructed to follow up with orthopedics team. She was at [facility] from 11/10/24 - 12/17/24 Discharged home with medications and group home services. Instructed to follow up with PCP with us in 7 to 10 days. Today she feels fine, no complaints, has a follow up with orthopedics tomorrow Assessment & Plan (10/21/2023 10:15 AM EDT): Patient admitted to [facility] 09/09/23 after she presented to [place] emergency room due to left-sided chest discomfort [...] (08/27/2022 10:19 AM EDT): followed by a cost specialist. 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 She says it falls out when she brushes her hair Pt evaluated by Dr Guevara Rheumatoid arthritis involvi ng multiple sites with positive rheumatoid factor 08/27/2022 Assessment & Plan (01/04/2025 9:23 AM EDT): Under the care of Rheumatology on Actemra 162, last note 10/2023 Assessment & Plan [...] a new Psychiatrist and a psychotherapist in [place] She tells me she is taking Effexor, [...] with cardiology in August. - Follow-up in [facility] in November. Repeat BMP and A1c [...] from 7.8 Eye exam done on: 12/2023 [facility] Dx with new [...] from 8.9 Eye exam done on: 12/2023 [facility] Dx with new [...] f/u She is under the care of Wallpaperer Dr Sprague, last seen 12/31/2023 On a [...] f/u She is under the care of Wallpape[facility] Dr Sprague, last seen 10/16/2023 On a [...] f/u She is under the care of Wallpape[facility] Dr Sprague, has a follow up with [...] f/u She is under the care of Wallpape[facility] Dr Sprague, has a follow up at [...] was referred to Dr. Manjinder Gonsales at [facility] as her medical insurance recommended [...] LDL-C. Melquiades WALLACE et al. TEN. 2013;310(19): 8342-2939 (http://education.[employer].Fileforce/faq/EHM149) Chol/HDLC Ratio <5.0 (calc) 4.2 3.7 2.5 [...] Encounters Date Type Department Care Team Description 01/11/2025 Refill [facility] [address] [facility] [place] [address] Pascual Daly MD Long-term current use of opiate analgesic (Primary Dx) 01/07/2025 Orders Only GENERIC EXTERNAL DATA DEPARTMENT Provider, Generic External Data 01/04/2025 9:30 AM EDT Office Visit [facility] [address] [place] [address] Pascual Daly MD Hospital discharge follow-up (Primary Dx); Type 2 diabetes mellitus with right eye affected by mild nonproliferative retinopathy without macular edema, with long-term current use of insulin (CMS/HCC); Rheumatoid arthritis involving multiple sites with positive rheumatoid factor ([facility]/HCC); Major depressive disorder with psychotic features ([facility]/HCC); Mixed stress and urge urinary incontinence; Sore throat 01/04/2025 Travel 01/03/2025 Telephone [facility] [address] [place] [address] Pascual Daly MD chart prep 12/31/2024 Telephone [facility] [address] [place] [address] Katie Harper, PharmD 12/22/2024 Telephone [facility] [address] [place] [address] Pascual Daly MD Durable Medical Equipment 12/15/2024 Patient Outreach [facility] [address] [place] [address] Pascual Daly MD Transition Of Care (Tcm) (HDF scheduled. ) 11/21/2024 Refill [facility] [address] [place] [address] Pascual Daly MD Pain; Benign hypertension 11/16/2024 Telephone [facility] [address] [place] [address] Pascual Daly MD 11/15/2024 Telephone [facility] [address] [place] [address] Pascual Daly MD Chart Prep 11/08/2024 Orders Only GENERIC EXTERNAL DATA DEPARTMENT Provider, Generic External Data 10/28/2024 10:30 AM EDT Clinical Support [facility] [address] [place] [address] Amanda Fernández RN [facility] 10/28/2024 Orders Only GENERIC EXTERNAL DATA DEPARTMENT Provider, Generic External Data 10/28/2024 Refill [facility] [address] [place] [address] Amanda Fernández RN [facility] 10/28/2024 Travel 10/27/2024 Refill [facility] [address] [place] [address] Pascual Daly MD [facility] 10/14/2024 Travel from Last 3 Months Immunizations [...] Description 01/17/2025 10:30 AM EDT Medication Management [facility] [address] [place] [address] Dasia Waters, PharmD [address] [place] [address] 01/20/2025 10:30 AM EDT Clinical Support [facility] [address] [place] [address] Amanda Fernández, RN [address] [place] [address] 01/26/2025 9:00 AM EDT Office Visit [facility] ADULT DENTAL [address] [place] [address] Christian Winchester DDS [address] [place] [address] 02/17/2025 10:15 AM EDT Office Visit [facility] [address] [place] [address] Gabriela Gaitan [address] [place] [address] Health Maintenance Due Date Last Done Comments [...] edema, with long-term current use of insulin ([facility]) GLUCOSE, WHOLE BLOOD Routine 11/08/2024 8:15 AM [...] current use of insulin ([facility]) Full PROPHYLAXIS - ADULT Routine 08/05/2024 10:00 [...] of2 resultswithin the time period is included. Pathologist [facility] Glucose, Whole Blood 101 60 - 115 mg/dL [facility] Comment:METER #: [id number] Testing performed in the Endocrinology Department [address] , [address], [facility]. 01/07/2025 10:3 0 AM EDT 01/07/2025 10:36 AM EDT Generic External Data Provider LAB BLOOD ORDERAB LES Final Result Performing Organization Address [facility]/ZIP Co de Phone Number [facility] [address] [place] [phone] * POCT Rapid Influenza A OSOM (01/04/2025 10:08 AM EDT) [facility] Rapid Influenza A Ag Negative Negative, Indeterminate QC Media Lot # [id number] Lot# Expiration Date Swab Nasopharyngeal structure / Unknown 01/04/2025 10:08 AM EDT Result [facility] Pascual Terry MD POINT OF CARE TEST EN TER/EDIT ORDERABLES Final Result * POCT Rapid Influenza B BALL ID NOW (01/04/2025 9:54 AM EDT) [facility] Influenza B Negative Negative, Indeterminate [facility] QC Media Lot # [id number] [facility] Lot# Expiration Date [facility] Swab 01/04/2025 9:54 AM EDT Pascual Terry MD POINT OF CARE TEST EN TER/EDIT ORDERABLES Final Result Performing Organization Address City/[facility]/ZIP Co de Phone Number [facility] [address] [place] [phone] * POCT Rapid Covid-19 BALL ID NOW (01/04/2025 9:54 AM EDT) [facility] Coronavirus Antigen PCR Negative Negative, Indeterminate, None Detected, Invalid, Specimen unsatisfactory for evaluation, Weakly Positive, 2+ QC Media Lot # [id number] Lot# Expiration Date Swab 01/04/2025 9:54 AM EDT us Pascual Terry MD POINT OF CARE TEST EN TER/EDIT ORDERABLES Final Result * POCT Rapid Strep A BALL ID NOW (01/04/2025 9:51 AM EDT) [facility] Rapid Strep A Screen Negative Negative, None Detected QC Media Lot # [id number] Lot# Expiration Date Swab 01/04/2025 9:51 AM EDT us Pascual Terry MD POINT OF CARE TEST EN TER/EDIT ORDERABLES Final Result * POCT Rapid Covid-19 BinaxNOW (01/04/2025 9:51 AM EDT) [facility] Rapid COVID Ag Negative QC Media Lot # [id number] Lot# Expiration Date Swab 01/04/2025 9:51 AM EDT us Pascual Terry MD POINT OF CARE TEST EN TER/EDIT ORDERABLES Final Result * POCT Glucose (01/04/2025 9:29 AM EDT) [facility] Glucose Blood, POC 182 60 - 200 mg/dL QC Media Lot # [id number] Lot# Expiration Date Blood Capillary blood specimen / Unknown 01/04/2025 [...] 10:05 AM EDT Internal Pass Control Lot# [id number] Exp: 02-18-26 us Pascual Terry MD POINT OF CARE TEST EN TER/EDIT ORDERABLES Final Result * Vitamin D, 25-Hydroxy, Total, Immunoassay (10/28/2024 10:04 AM EDT) Vitamin D 25-OH Total 78.0 >30 ng/mL [facility] Comment: Health Based Reference Values*< 20 ng/mL Chycljgsx07-26 ng/mL Insufficient> 30 ng/mL Sufficient*Dione TUCKER. N [...] Provider LAB BLOOD ORDERAB LES Final Result [facility] [address] [place] [address] [phone] * T-SPOT??.TB (10/28/2024 10:04 AM EDT) [facility] T Spot TB Negative Negative [facility] Comment:A negative test resu lt does [...] as aquantitative test. TS PANEL A 1 [facility] TS PANEL B 0 [facility] Negative Control Passed [facility] Positive Control Passed [facility] Comment:For additional infor pat, please refer tohttp://education.[employer].Fileforce/faq/ASM664(This link is being provided for informational/educational purposes only.)REPORT COMMENT:REC'D AT [facility] TEST WAS PERFORMED AT:[employer] [id number] [place] [id number] CORDON MD,PHD 10/28/2024 10:0 4 AM EDT 10/28/2024 3:44 PM EDT us Generic External Data Provider LAB BLOOD ORDERAB LES Final Result Performing Organization Address [facility] de Phone Number [facility] [address] [place] [phone] * Hepatitis Panel, General (10/28/2024 10:04 AM EDT) Pathologist [facility] Hepatitis A IgM Nonreactive Nonreactive [facility] Comment:IgM antibodies to GARCIA V not detected; does not exclude earlyacute or recovered HAV infection. ~Hepatitis B Surface Antibody NONREACTIVE Nonreactive [facility] Comment:Nonreactive: < 8.00 mIU/mL Hepatitis B Core Antibody Nonreactive Nonreactive [facility] Hepatitis C Antibody Nonreactive Nonreactive [facility] Comment:Antibodies to HCV no t detected; does not exclude early acuteHCV infection. Hepatitis B Surface Ag Negative Negative [facility] 10/28/2024 10:0 4 AM EDT 10/28/2024 3:46 PM EDT Generic External Data Provider LAB BLOOD ORDERAB LES Final Result Performing Organization Address [facility] de Phone Number [facility] [address] [place] [phone] * Hepatitis C Viral RNA, Quantitative, Real-Time PCR (10/28/2024 10:04 AM EDT) [facility] Hepatitis C Viral Load <15 NOT DETECTED NOT DETECTED IU/mL [facility] HCV Log PCR <1.18 NOT DETECTED NOT DETECTED Log IU/mL [facility] Comment:For additional infor pat, please refer tohttp://education.[employer]/faq/TRT58h0(This link is being provided for informational/educational purposes only.)THIS TEST WAS PERFORMED AT:[employer] [place] [phone] HURLEY MD 10/28/2024 10:0 4 AM EDT 10/28/2024 3:46 PM EDT us Generic External Data Provider LAB BLOOD ORDERAB LES Final Result [facility] [address] [place] [phone] * (ABNORMAL) CBC auto differential (10/28/2024 10:04 AM EDT) White Blood Count 9.5 4.8 - 10.8 X10*3/uL [facility] Red Blood Count 4.17(L) 4.20 - 5.50 X10*6/uL [facility] Hemoglobin 11.7(L) 12.0 - 16.0 g/dl [facility] Hematocrit 36.6(L) 37.0 - 47.0 % [facility] Mean Corpuscular Volume 87.8 80.0 - 98.0 fL [facility] Mean Corpuscular Hemoglobin 28.1 27.0 - 33.0 pg [facility] Mean Corpuscular HGB Conc 32.0 31.0 - 35.0 g/dl [facility] Red Cell Distribution Width 13.9 11.0 - 16.0 % [facility] Platelet Count 199 160 - 400 X10*3/uL [facility] Mean Platelet Volume 11.4 9.4 - 12.3 fL [facility] Neutrophils Percent Auto 49.1 45 - 73 % [facility] Imm Gran Pct Auto 0.2 0.0 - 0.4 % [facility] Lymphocytes Percent Auto 31.2 20 - 40 % [facility] Monocytes Percent Auto 6.2 2 - 11 % [facility] Eosinophils Percent Auto 12.1(H) 0 - 4 % [facility] Basophils Percent Auto 1.2 0 - 2 % [facility] NRBC Pct Auto 0.0 0.0 - 0.2 /100WBC [facility] Neutrophils Absolute Auto 4.7 2.0 - 8.3 x10*3/uL [facility] Imm Gran Abs Auto 0.02 0.00 - 0.03 X10*3/uL [facility] Lymphocytes Absolute Auto 3.0 1.2 - 4.9 X10*3/uL [facility] Monocytes Absolute Auto 0.6 0.1 - 1.2 X10*3/uL [facility] Eosinophils Absolute Auto 1.1(H) 0.0 - 0.4 X10*3/uL [facility] Basophils Absolute Auto 0.1 0.0 - 0.2 X10*3/uL [facility] NRBC Abs Auto 0.000 0.0 - 0.012 X10*3/uL [facility] 10/28/2024 10:0 4 AM EDT 10/28/2024 3:46 PM EDT Generic External Data Provider LAB BLOOD ORDERAB LES Final Result Performing Organization Address [facility]/ZIP Co de Phone Number [facility] [address] [place] [phone] * Sed Rate by Modified Nilaren (10/28/2024 10:04 AM EDT) Erythrocyte Sedimentation Rate 2 0 - 20 MM/HR [facility] Comment:Patients with polycy themia and many hemoglobin abnormalitiesmay have depressed sed rates whereas patients with anemiamay have elevated sed rates. 10/28/2024 10:0 4 AM EDT 10/28/2024 3:46 PM EDT us Generic External Data Provider LAB BLOOD ORDERAB LES Final Result Performing Organization Address [facility]/ZIP Co de Phone Number [facility] [address] [place] [phone] * Lipid Panel, Standard (08/16/2024 9:24 AM EDT) Triglycerides 100 <150 mg/dL [facility] Comment:Desirable Triglyceri de: less than 150 mg/dLBorderline High Triglyceride 150-199 mg/dLHigh Triglyceride: 200-499 mg/dLVery High Triglyceride: greater than or equal to 5OO mg/dL Cholesterol 145 <200 mg/dL [facility] Comment:Desirable Cholestero l: less than 200 mg/dLBorderline High Cholesterol: 200-239 mg/dLHigh Cholesterol: greater than 239 mg/dL LDL Cholesterol Calculated 60 <100 mg/dL [facility] Comment:Desirable LDL: less than 100 mg/dLNear Optimal/Above Optimal LDL: 110- 129 mg/dLBorderline High LDL: 130-159 mg/dLHigh LDL: 160-189 mg/dLVery High LDL: greater than or equal to 190 mg/dL HDL Cholesterol 65 >40 mg/dL [facility] Comment:Desirable HDL: great er than 40 mg/dL Note: This HDL assay may give artificially low results in patients with liver disease. Blood Venous blood specimen / Unknown 08/16/2024 9:24 AM EDT 08/16/2024 10:57 AM EDT Pascual Terry MD LAB BLOOD ORDERABLES Final Result [facility] [address] [place] [phone] * (ABNORMAL) POCT HGB A1C (08/12/2024 [...] AM EDT Narrative 08/10/2024 3:27 PM EDT [facility] [address] [place] [address] Dr. Dong, [place]OMIE [address] Mammography Report Signed Patient: Brandie Santana MR#: [id number] : 1950 Acct:[id number] Age/Sex: 74 / F ADM Date: 08/02/24 Loc: HO.MAMMO Attending Dr: Pascual Darnell MD Ordering Physician: Pascual Darnell MD Resu lts: 2Benign Findings Date of Service: 08/02/24 Follow Up: 1 Year From Orig inal Mammogram Procedure(s): MM tomosynthesis screening BI Accession Number(s): [id number] cc: Pascual Darnell MD EXAMINATION: MM SCREENING [...] 08/10/24 1523 DD/ 1103 TD/TT: 08/02/24 1116 Personal Driver: Procedure Note Donotuseinterpreter, Image - 08/10/2024 [facility] [address] [place] [address] [place] [address] Mammography Report Signed Patient: Dino Santana#: [id number] : 1950Acct:[id number] Age/Sex: 74 / FADM Date: 08/02/24 Loc: HO.MAMMO Attending Dr: Pascual Darnell MD Ordering Physician: Pascual Darnell MDResu lts: 2Benign Findings Date of Service: 08/02/24Follow Up: 1 Year From Orig ina Mammogram Procedure(s): MM tomosynthesis screening BI Accession Number(s): [id number] cc: Pascual Darnell MD EXAMINATION: MM SCREENING [...] 08/10/24 1523 DD/ 1103 TD/TT: 08/02/24 1116 Personal Driver: us Pascual Terry MD IMG BI PROCEDURES Fin al Result * (ABNORMAL) Albumin, Random Urine W/Creatinine (07/02/2023 10:06 AM EDT) Creatinine, Urine 163.81 mg/dL [facility] Microalbumin Urine 59.0 mg/L H [facility] Microalbum Creatinine Ratio Ur 36.0(H) <30 ug/mg cr [facility] Comment:Albumin/Creatinine R atio Reference Ranges: Normal: < 30 ug/mg creatinine Microalbuminuria: 30 - 300 ug/mg creatinineClinical Albuminuria: > 300 ug/mg creatinine 07/02/2023 10:0 6 AM EDT 07/02/2023 11:41 AM EDT Generic External Data Provider LAB URINE ORDERAB LES Final Result [facility] [address] [place] [address] [phone] * Colonoscopy (03/20/2018) Colonoscopy Normal Normal 03/20/2018 Narrative Sondra Rowe - 03/20/2018 9:09 AM EST Recommended 10 year follow up Historical Provider HEALTH MAINTENANCE Edited Result - Final from Last 3 Months or Most Recently Relevant to Health Maintenance Insurance [employer] (O D-SNP) DENTAL - [place] [address] Care Teams Treating Engineer Helper Relationship Specialty Start Date End Date Pascual Daly MD [address] [place] [address] PCP - General Internal Medicine 02/22/14 Dasia Waters PharmD [address] [place] [address] Pharmacist Internal Medicine 08/16/24 Iker CORDERO 12/18/24
--- OUTSIDE RECORDS SUMMARY | 2025-01-13 09:22 | XMS_ITS | Encounter Summary ---
Author Organization [employer] Address [address] [facility] 7t [place] [address] Care Team Providers Care Conduit Cleaner Name Role Phone Pascual Daly MD Primary Care Provide r Fani Heck PharmD Unavailable +0 Dasia Waters PharmD Unavailable +0 Reason for Visit * Reason Onset Date Comments FYI 12/11/2023 Durable Medical Equipment 12/11/2023 Encounter Details Date Type Department Care Team (Late st Contact Info) Description 12/11/2023 Telephone [facility] [address] [place], [place] [phone] Pascual Daly MD [address] [place], [place] [phone] FYI ; Durable Medical Equipment Social History [...] two DME scripts to be sent to [facility] which: [facility] bed Please fax over to [phone] documented in this encounter Plan of Treatment Upcoming Encounters Date Type Department Care Team ([facility] st Contact Info) Description 01/17/2025 10:30 AM EDT Medication Management [facility] [address] [place] [address] Dasia Waters, PharmD [address] [place] [address] 01/20/2025 10:30 AM EDT Clinical Support [facility] [address] [place] [address] Amanda Fernández, RN [address] [place] [address] 01/26/2025 9:00 AM EDT Office Visit [facility] ADULT DENTAL [address] [place] [address] Christian Winchester DDS [address] [place] [address] 02/17/2025 10:15 AM EDT Office Visit [facility] ADULT DENTAL [address] [place] [address] Gabriela Gaitan [address] [place] [address] documented as of this encounter Goals Goal [...] documented as of this encounter Care Teams Conduit Cleaner Relationship Specialty Start Date End Date [place]asc[place] [address] PCP - General Internal Medicine 02/22/14 Fani Heck, PharmD [facility] [place] [address] Pharmacist Internal Medicine 12/16/22 08/15/24 Dasia Waters, KristiD [facility] [place] [address] Pharmacist Internal Medicine 08/16/24 Iker MARCUSA 12/18/24 documented as of this encounter
--- OUTSIDE RECORDS SUMMARY | 2025-01-13 09:22 | XMS_ITS | Encounter Summary ---
Author Organization [employer] Address [address] [facility] 7t [place] [address] Care Team Providers Care Clinical Biochemist Name Role Phone Pascual Daly MD Primary Care Provide r Fani Heck PharmD Unavailable + Dasia Waters PharmD Unavailable [phone] Encounter Details Date Type Department Care Team (Late Contact Info) Description 03/11/2022 Abstract [facility] [address] [place] [address] Fani Heck, PharmD [address] [place], [place] [phone] Social History Tobacco Use Types Packs/Day Years [...] Date Type Department Care Team ([facility] Contact Info) Description 01/17/2025 10:30 AM EDT Medication Management [facility] [address] [place], [place] [phone] Dasia Waters, PharmD [address] [place], [place] [phone] 01/20/2025 10:30 AM EDT Clinical Support [facility] [address] [place] [address] Amanda Fernández, RN [address] [place] [address] 01/26/2025 9:00 AM EDT Office Visit [facility] ADULT DENTAL [address] [place] [address] Christian Winchester DDS [address] [place] [address] 02/17/2025 10:15 AM EDT Office Visit [facility] ADULT DENTAL [address] [place] [address] Gabriela Gaitan [address] [place] [address] documented as of this encounter Visit Diagnoses Not on filedocumented in this encounter Care Teams Clinical Biochemist Relationship Specialty Start Date End Date Pascual Daly MD [address] [place] [phone] PCP - General Internal Medicine 02/22/14 Fani Heck, PharmD [address] [place] [phone] Pharmacist Internal Medicine 12/16/22 08/15/24 Dasia Waters, KristiD [address] [place] [phone] Pharmacist Internal Medicine 08/16/24 [facility] 12/18/24 documented as of this encounter
--- OUTSIDE RECORDS SUMMARY | 2025-01-13 09:22 | XMS_ITS | Encounter Summary ---
Author Organization [employer] Address 75 [facility] 7t [place] [address] Care Team Providers Care Administration Dean Name Role Phone Pascual Daly MD Primary Care Provide r Fani Heck PharmD Unavailable +1 Dasia Waters PharmD Unavailable [phone] Reason for Visit * Reason Onset Date Comments Med Refill 01/13/2024 Encounter Details Date Type Department Care Team ([facility] st Contact Info) Description 01/13/2024 Telephone [facility] MEDICINE [address] [place], [place] [phone] Pascual Daly MD 230 [place] [address] Med Refill Social History Tobacco Use Types [...] immediate release tablet To be sent to: [facility] - [place], [place] - [address] [place] [address] documented in this encounter Plan of Treatment Upcoming Encounters Date Type Department Care Team ([facility] st Contact Info) Description 01/17/2025 10:30 AM EDT Medication Management [facility] MEDICINE [address] [place] [address] Dasia Waters, PharmD 230 [place] [address] 01/20/2025 10:30 AM EDT Clinical Support [facility] MED & PEDS 505 [place] [address] Amanda Fernández, RN 505 [place] [address] 01/26/2025 9:00 AM EDT Office Visit [facility] ADULT DENTAL 230 [place], [place] [phone] Christian Winchester DDS 230 [place] [address] 02/17/2025 10:15 AM EDT Office Visit [facility] ADULT DENTAL [address] [place], [place] [phone] Gabriela Gaitan 230 [place] [address] documented as of this encounter Goals Goal [...] documented as of this encounter Care Teams Administration Dean Relationship Specialty Start Date End Date [place] [address] PCP - General Internal Medicine 02/22/14 Fani Heck, PharmD [address] [place] [address] Pharmacist Internal Medicine 12/16/22 08/15/24 [place] [address] Pharmacist Internal Medicine 08/16/24 [place] [facility] 12/18/24 documented as of this encounter
--- OUTSIDE RECORDS SUMMARY | 2025-01-13 09:22 | XMS_ITS | Encounter Summary ---
Author Organization [employer] Address 75 [facility] 7t [place] [address] Care Team Providers Care Grinder Set Up Operator Universal Name Role Phone Pascual Daly MD Primary Care Provide r Fani Heck PharmD Unavailable +7 Dasia Waters PharmD Unavailable [phone] Reason for Visit * Reason Comments Med Refill Encounter Details Date Type Department Care Team ([facility] Contact Info) Description 12/28/2022 Refill [facility] MEDICINE 230 [place] [address] Titi Gray FNP Major depressive disorder with [...] Management [facility] MEDICINE 230 [place], [place] [phone] Dasia Waters PharmD [address] [place] [address] 01/20/2025 10:30 AM EDT Clinical Support [facility] CHC MED & PEDS 505 [place] [address] Amanda Fernández, RN 505 [place], [place] 01/26/2025 9:00 AM EDT Office Visit [facility] ADULT DENTAL 230 [place] [address] Christian Winchester DDS 230 [place] [address] 02/17/2025 10:15 AM EDT Office Visit [facility] ADULT DENTAL 230 [place] [address] Gabriela Gaitan 230 [place] [address] documented as of this encounter Goals Goal [...] documented as of this encounter Care Teams Grinder Set Up Operator Universal Relationship Specialty Start Date End Date Pascual Daly MD [address] [place] [address] PCP - General Internal Medicine 02/22/14 Fani Heck PharmD [address] [place] [address] Pharmacist Internal Medicine 12/16/22 08/15/24 Dasia Waters PharmD [address] [place] [address] Pharmacist Internal Medicine 08/16/24 Iker CORDERO 12/18/24 documented as of this encounter
--- OUTSIDE RECORDS SUMMARY | 2025-01-13 09:22 | XMS_ITS | Encounter Summary ---
Author Organization [employer] Address 75 [facility] 7t [place] [address] Care Team Providers Care Grant Coordinator Name Role Phone Pascual Daly MD Primary Care Provide r Fani Heck PharmD Unavailable +2 Dasia Waters PharmD Unavailable [phone] Reason for Visit * Reason Comments Med Refill Encounter Details Date Type Department Care Team ([facility] st Contact Info) Description 01/14/2024 Refill [facility] CHC MED & PEDS [address] [place] [address] Pascual Daly MD 230 [place], [place] [phone] Fibromyalgia Social History Tobacco Use Types Packs/Day [...] 10:30 AM EDT Medication Management [facility] MEDICINE 230 [place] [address] Dasia Waters, PharmD 230 [place] [address] 01/20/2025 10:30 AM EDT Clinical Support [facility] CHC MED & PEDS 505 [place] [address] Amanda Fernández, RN 505 [place] [address] 01/26/2025 9:00 AM EDT Office Visit [facility] ADULT DENTAL 230 [place] [address] Christian Winchester DDS 230 [place] [address] 02/17/2025 10:15 AM EDT Office Visit [facility] ADULT DENTAL 230 [place] [address] Gabriela Gaitan 230 [place] [address] documented as of this encounter Goals Goal [...] documented as of this encounter Care Teams Grant Coordinator Relationship Specialty Start Date End Date Pascual Daly MD [address] [place] [place] [address] PCP - General Internal Medicine 02/22/14 Fani Heck, Woody [address] [place] [address] Pharmacist Internal Medicine 12/16/22 08/15/24 Dasia Waters PharmD [address] [place] [place] [address] Pharmacist Internal Medicine 08/16/24 [facility] [place] 12/18/24 documented as of this encounter
--- OUTSIDE RECORDS SUMMARY | 2025-01-13 09:22 | XMS_ITS | Encounter Summary ---
Author Organization [employer] Address 75 [facility] 7t [place] [address] Care Team Providers Care Photoengraving Proofer Name Role Phone Pascual Daly MD Primary Care Provide r Fani Heck PharmD Unavailable + Dasia Waters PharmD Unavailable [phone] Encounter Details Date Type Department Care Team (Late st Contact Info) Description 07/01/2022 Abstract [facility] [address] [place] [address] Pascual Daly MD [address] [place] [address] Social History Tobacco Use Types Packs/Day Years [...] 01/17/2025 10:30 AM EDT Medication Management [facility] MEDICINE 230 [place] [address] Dasia Waters, KristiD 230 [place] [address] 01/20/2025 10:30 AM EDT Clinical Support [facility] CH[facility] MED & PEDS 505 [place] [address] Amanda Fernández, RN 505 [place] [address] 01/26/2025 9:00 AM EDT Office Visit [facility] ADULT DENTAL 230 [place] [address] Christian Winchester DDS 230 [place] [address] 02/17/2025 10:15 AM EDT Office Visit [facility] ADULT DENTAL 230 [place] [address] Gabriela Gaitan 230 [place] [address] documented as of this encounter Goals Goal [...] documented as of this encounter Care Teams Photoengraving Proofer Relationship Specialty Start Date End Date Pascual Daly MD 230 [place] [address] PCP - General Internal Medicine 02/22/14 Fani Heck, KristiD 230 [place] [address] Pharmacist Internal Medicine 12/16/22 08/15/24 Dasia Waters PharmD 230 [place] [address] Pharmacist Internal Medicine 08/16/24 [place] [facility] 12/18/24 documented as of this encounter
--- OUTSIDE RECORDS SUMMARY | 2025-01-13 09:22 | XMS_ITS | Encounter Summary ---
Author Organization [employer] Address 75 [facility] 7t [place] [address] Care Team Providers Care Pulvi Mixer Operator Name Role Phone Pascual Daly MD Primary Care Provide r Fani Heck PharmD Unavailable +1 Dasia Waters PharmD Unavailable [phone] Reason for Visit * Reason Comments Med Refill Encounter Details Date Type Department Care Team (Late Contact Info) Description 08/08/2022 Refill [facility] [address] [place] [address] Momo Rizo MD [address] [place] [address] Mild intermittent asthma without complication Social History [...] [facility] Contact Info) Description 01/17/2025 10:30 AM EDT Medication Management [facility] 230 [place] [address] Dasia Waters PharmD 230 [place] [address] 01/20/2025 10:30 AM EDT Clinical Support [facility] CH[facility] MED & PEDS 505 [place] [address] Amanda Fernández, RN 505 [place] [address] 01/26/2025 9:00 AM EDT Office Visit [facility] ADULT DENTAL 230 [place] [address] Christian Winchester DDS 230 [place] [address] 02/17/2025 10:15 AM EDT Office Visit [facility] ADULT DENTAL [address] [place] [address] Gabriela Gaitan 230 [place] [address] documented as of this encounter Goals Goal [...] documented as of this encounter Care Teams Pulvi Mixer Operator Relationship Specialty Start Date End Date Pascual Daly MD [address] [place] [address] PCP - General Internal Medicine 02/22/14 Fani Heck PharmD [address] [place] [address] Pharmacist Internal Medicine 12/16/22 08/15/24 Dasia Waters PharmD [address] [place] [address] Pharmacist Internal Medicine 08/16/24 Iker CORDERO 12/18/24 documented as of this encounter
--- OUTSIDE RECORDS SUMMARY | 2025-01-13 09:22 | XMS_ITS | Encounter Summary ---
Author Organization [employer] Address 75 [facility] 7t [place] [address] Care Team Providers Care Claims Counsel Name Role Phone Pascual Daly MD Primary Care Provide r Fani Heck PharmD Unavailable +5 Dasia Waters PharmD Unavailable [phone] Reason for Visit * Reason Onset Date Comments Med Refill 10/11/2022 Encounter Details Date Type Department Care Team ([facility] st Contact Info) Description 10/11/2022 Telephone [facility] MEDICINE 230 [place], [place] [phone] Pascual Daly MD 230 [place], [place] [phone] Med Refill Social History Tobacco Use Types [...] Description 01/17/2025 10:30 AM EDT Medication Management [facility] MEDICINE 230 [place] [address] Dasia Waters, KristiD 230 [place] [address] 01/20/2025 10:30 AM EDT Clinical Support [facility] CHC MED & PEDS 505 [place] [address] Amanda Fernández, RN 505 [place] [address] 01/26/2025 9:00 AM EDT Office Visit [facility] ADULT DENTAL 230 [place] [address] Christian Winchester DDS 230 [place] [address] 02/17/2025 10:15 AM EDT Office Visit [facility] ADULT DENTAL 230 [place] [address] Gabriela Gaitan 230 [place] [address] documented as of this encounter Goals Goal [...] documented as of this encounter Care Teams Claims Counsel Relationship Specialty Start Date End Date Pascual Daly MD 230 [place] [address] PCP - General Internal Medicine 11/4/14 Fani Heck, KristiD 230 [place] [address] Pharmacist Internal Medicine 12/16/22 08/15/24 Dasia Waters PharmD 230 [place] [address] Pharmacist Internal Medicine 08/16/24 [place] [facility] 12/18/24 documented as of this encounter
--- OUTSIDE RECORDS SUMMARY | 2025-01-13 09:22 | XMS_ITS | Encounter Summary ---
Author Organization [facility] Address [address] [place] [address] Care Team Providers Care Batting Machine Operator Name Role Phone Pascual Darnell MD Primary Care Provi chio Encounter Details Date Type Department Care Team (Late Contact Info) Description 11/23/2024 Lab Requisition [facility] - Main Lab 299 [facility] [place] [phone] Vero Mike MD [address] [place], [place] [phone] Type 1 diabetes mellitus with hyperglycemia (CMS/HCC [...] AM EST Office Visit [facility] [place] [address] [address] Luciano Smith DPM [address] [phone] documented as of this encounter Procedures Procedure Name Priority Date/Time Associated Diagnosis Comments VITAMIN D 25 HYDROXY Routine 11/24/2024 6:16 AM EDT Type 1 diabetes mellitus with hyperglycemia (CMS/HCC V24, CMS/HCC V28) Old myocardial infarction Essential (primary) hypertension Vitamin D deficiency, unspecified COMPLETE BLOOD COUNT Routine 11/24/2024 6:16 AM EDT Type 1 diabetes mellitus with hyperglycemia ([facility] V24, [facility]/HCC V28) Old myocardial infarction Essential (primary) hypertension Vitamin D deficiency, unspecified THYROID STIMULATING HORMONE Routine 11/24/2024 6:16 AM EDT Type 1 diabetes mellitus with hyperglycemia ([facility]/HCC V24, [facility] V28) Old myocardial infarction Essential (primary) hypertension Vitamin D deficiency, unspecified HEMOGLOBIN A1C Routine 11/24/2024 6:16 AM EDT Type 1 diabetes mellitus with hyperglycemia ([facility]/HCC V24, [facility] V28) Old myocardial infarction Essential (primary) hypertension Vitamin D deficiency, unspecified VITAMIN B12 Routine 11/24/2024 6:16 AM EDT Type 1 diabetes mellitus with hyperglycemia ([facility]/HCC V24, [facility] V28) Old myocardial infarction Essential (primary) hypertension Vitamin D deficiency, unspecified COMPREHENSIVE METABOLIC PANEL Routine 11/24/2024 6:16 AM EDT Type 1 diabetes mellitus with hyperglycemia ([facility]/HCC V24, [facility] V28) Old myocardial infarction Essential (primary) hypertension Vitamin D deficiency, unspecified documented in this encounter Results * (ABNORMAL) Hemoglobin A1c (11/24/2024 6:16 AM EDT) Hemoglobin A1C 8.9(H) <6.5 % LAB CHEMISTRY METHOD 11/24/2024 12:29 PM EDT [facility] Mean Bld Glu Estim. 209 mg/dL LAB CHEMISTRY METHOD 11/24/2024 12:29 PM EDT [facility] Blood Venous blood specimen / Unknown Venipuncture / Unknown 11/24/2024 6:16 AM EDT 11/24/2024 10:24 AM EDT us Fahim A Rashid MD LAB BLOOD ORDERABLES Final Resul t [facility] [address] [place] [address], * (ABNORMAL) Complete blood count (11/24/2024 6:16 AM EDT) WBC 8.5 4.8 - 10.8 K/mcL LAB HEMETOLOGY METHOD 11/24/2024 11:00 AM [facility] RBC 3.80 3.80 - 4.80 M/mcL LAB HEMETOLOGY METHOD 11/24/2024 11:00 AM [facility] Hemoglobin 10.4(L) 11.5 - 16.0 g/dL LAB HEMETOLOGY METHOD 11/24/2024 11:00 AM [facility] Hematocrit 32.5(L) 35.0 - 47.0 % LAB HEMETOLOGY METHOD 11/24/2024 11:00 AM [facility] MCV 86.2 79.0 - 98.0 FL LAB HEMETOLOGY METHOD 11/24/2024 11:00 AM [facility] MCH 27.6 27.0 - 32.0 pcg LAB HEMETOLOGY METHOD 11/24/2024 11:00 AM [facility] MCHC 32.0 32.0 - 37.0 g/dL LAB HEMETOLOGY METHOD 11/24/2024 11:00 AM [facility] [...] LAB HEMETOLOGY METHOD 11/24/2024 11:00 AM EDT [facility] NRBC 0.0 <1.0 % LAB HEMETOLOGY METHOD 11/24/2024 11:00 AM EDT [facility] NRBC Absolute 0.00 <0.10 K/mcL LAB HEMETOLOGY METHOD 11/24/2024 11:00 AM T [facility] Blood Venous blood specimen / Unknown Venipuncture / Unknown 11/24/2024 6:16 AM EDT 11/24/2024 10:24 AM EDT us Vero Mike MD LAB BLOOD ORDERABLES Final Resul t [facility] [address] [place] [address], [place] [phone] * (ABNORMAL) Comprehensive metabolic panel (11/24/2024 6:16 [...] MD LAB BLOOD ORDERABLES Final Resul t [facility] [address] [place] [address], [place] [phone] * Thyroid stimulating hormone (11/24/2024 6:16 AM EDT) [facility] TSH 1.63 0.40 - 4.00 mcIU/mL LAB CHEMISTRY METHOD 11/24/2024 1:30 PM EDT [facility] Blood Venous blood specimen / Unknown Venipuncture / Unknown 11/24/2024 6:16 AM EDT 11/24/2024 10:32 AM EDT us Vero Mike MD LAB BLOOD ORDERABLES Final Resul t Performing Organization Address City/[facility] Co de Phone Number [facility] [address] [place] [address], [place] [phone] * Vitamin D 25 hydroxy (11/24/2024 6:16 AM EDT) [facility] Vit D, 25-Hydroxy 50.1 30.0 - 80.0 ng/mL LAB CHEMISTRY METHOD 11/24/2024 1:30 PM EDT [facility] Blood Venous blood specimen / Unknown Venipuncture / Unknown 11/24/2024 6:16 AM EDT 11/24/2024 10:32 AM EDT us Vero Mike MD LAB BLOOD ORDERABLES Final Resul t Performing Organization Address City/[facility]/ZIP Co de Phone Number [facility] [address] [place] [address], [place] [phone] * (ABNORMAL) Vitamin B12 (11/24/2024 6:16 AM EDT) [facility] Vitamin B-12 979(H) 250 - 900 pcg/mL LAB CHEMISTRY METHOD 11/24/2024 11:58 AM EDT [facility] Blood Venous blood specimen / Unknown Venipuncture / Unknown 11/24/2024 6:16 AM EDT 11/24/2024 10:32 AM EDT us Vero Mike MD LAB BLOOD ORDERABLES Final Resul t [facility] [address] [place] [address], documented in this encounter Visit Diagnoses Diagnosis Type 1 diabetes mellitus with hyperglycemia (CMS/[facility] V24, [facility] V28) Old myocardial infarction Essential (primary) hypertension Unspecified essential hypertension Vitamin D deficiency, unspecified documented in this encounter Care Teams Batting Machine Operator Relationship Specialty Start Date End Date Pascual Darnell MD [address] [place] [address] PCP - General Internal Medicine 06/18/24 documented as of this encounter
--- OUTSIDE RECORDS SUMMARY | 2025-01-13 09:22 | XMS_ITS | Encounter Summary ---
Author Organization [employer] Address 75 [facility] 7t [place] [address] Care Team Providers Care Dry Talc Racker Name Role Phone Pascual Daly MD Primary Care Provide r Fani Heck PharmD Unavailable +6 Dasia Waters PharmD Unavailable [phone] Reason for Visit * Reason Comments Med Refill Encounter Details Date Type Department Care Team (Late st Contact Info) Description 10/21/2023 Refill [facility] MEDICINE 230 [place] [address] Titi Gray FNP Major depressive disorder with [...] Description 01/17/2025 10:30 AM EDT Medication Management [facility] MEDICINE 230 [place] [address] Dasia Waters, KristiD 230 [place] [address] 01/20/2025 10:30 AM EDT Clinical Support [facility] CHC MED & PEDS 505 [place] [address] Amanda Fernández, RN 505 [place] [address] 01/26/2025 9:00 AM EDT Office Visit [facility] ADULT DENTAL 230 [place] [address] Christian Winchester DDS 230 [place] [address] 02/17/2025 10:15 AM EDT Office Visit [facility] ADULT DENTAL 230 [place] [address] Gabriela Gaitan 230 [place] [address] documented as of this encounter Goals Goal [...] documented as of this encounter Care Teams Dry Talc Racker Relationship Specialty Start Date End Date Pascual Daly MD 230 [place] [address] PCP - General Internal Medicine 02/22/14 Fani Heck, PharmD 230 [place] [address] Pharmacist Internal Medicine 12/16/22 08/15/24 Dasia Waters PharmD 230 [place] [address] Pharmacist Internal Medicine 08/16/24 [facility] 12/18/24 documented as of this encounter
--- OUTSIDE RECORDS SUMMARY | 2025-01-13 09:22 | XMS_ITS | Encounter Summary ---
Author Organization [facility] Address [address] [place] [address] Care Team Providers Care Packaging Sales Representative Name Role Phone Pascual Darnell MD Primary Care Provi chio Encounter Details Date Type Department Care Team (Late st Contact Info) Description 11/16/2024 Lab Requisition [facility] - Main Lab 299 [facility] [place] [phone] Vero Mike MD [address] [place] [address] Altered mental status, unspecified Social History Tobacco [...] AM EST Office Visit Orthopedic Surgery - [place] [address] [phone] Luciano Smith DPM 175 [facility] 250 [place] [phone] documented as of this encounter Procedures Procedure [...] reflex microscopic (11/15/2024 12:20 PM EDT) Specific [place] Urine 1.012 1.003 - 1.030 LAB URINALYSIS [...] - AUTOMATED METHOD 11/16/2024 9:53 AM EDT [facility] WBC, Urine 4.4(H) 0 - 4 /HPF LAB URINALYSIS - AUTOMATED METHOD 11/16/2024 9:53 AM EDT [facility] Squamous Epithelial, Urine 42 0 - 60 /LPF LAB URINALYSIS - AUTOMATED METHOD 11/16/2024 9:53 AM EDT [facility] Bacteria, Urine Many(A) Negative /HPF LAB URINALYSIS - AUTOMATED METHOD 11/16/2024 9:53 AM EDT [facility] Hyaline Casts, Urine 1.2 0 - 3 /LPF LAB URINALYSIS - AUTOMATED METHOD 11/16/2024 9:53 AM EDT [facility] Urine Urine specimen obtained by clean catch procedure / Unknown Non-blood Collection / Unknown 11/15/2024 12:20 PM EDT 11/16/2024 9:33 AM EDT us Vero Mike MD LAB URINE ORDERABLES Final Resul t [facility] [address] [place] [address], * (ABNORMAL) Culture urine (11/15/2024 12:20 PM EDT) Culture, Urine >=100,000 CFU/mL Klebsiella pneumoniae ssp pneumoniae(A) ANA 11/18/2024 10:57 AM EDT [facility] Comment: This is an [...] - GENERAL ORDER ELIU Final Result [facility] HOSPITAL LAB [address] [place] [address], documented in this encounter Visit Diagnoses Diagnosis Altered mental status, unspecified documented in this encounter Care Teams Packaging Sales Representative Relationship Specialty Start Date End Date Pascual Darnell MD [address] [place] [address] PCP - General Internal Medicine 06/18/24 documented as of this encounter
--- OUTSIDE RECORDS SUMMARY | 2025-01-13 09:22 | XMS_ITS | Encounter Summary ---
Author Organization [employer] Address 75 [facility] 7t [place] [address] Care Team Providers Care Receivables Specialist Name Role Phone Pascual Daly MD Primary Care Provide r Fani Heck PharmD Unavailable +2 Dasia Waters PharmD Unavailable [phone] Encounter Details Date Type Department Care Team (Latest Contact Info) Description 05/26/2019 Abstract [facility], Provider, DDS Social History Tobacco [...] 01/17/2025 10:30 AM EDT Medication Management [facility] 230 [place] [address] Dasia Waters, PharmD 230 [place] [address] 01/20/2025 10:30 AM EDT Clinical Support [facility] 505 [place] [address] Amanda Fernández, RN 505 [place] [address] 01/26/2025 9:00 AM EDT Office Visit [facility] 230 [place] [address] Christian Winchester DDS 230 [place] [address] 02/17/2025 10:15 AM EDT Office Visit [facility] 230 [place] [address] Gabriela Gaitan 230 [place] [address] documented as of this encounter Visit Diagnoses Not on filedocumented in this encounter Care Teams Receivables Specialist Relationship Specialty Start Date End Date Pascual Daly MD [address] [place] [address] PCP - General Internal Medicine 02/22/14 Fani Heck PharmD [address] [place] [address] Pharmacist Internal Medicine 12/16/22 08/15/24 Dasia Waters PharmD [address] [place] [address] Pharmacist Internal Medicine 08/16/24 [place] [facility] 12/18/24 documented as of this encounter
--- OUTSIDE RECORDS SUMMARY | 2025-01-13 09:22 | XMS_ITS | Encounter Summary ---
Author Organization [employer] Address 75 [facility] 7t [place] [address] Care Team Providers Care Sorter Lumber Straightener Name Role Phone Pascual Daly MD Primary Care Provide r Fani Heck PharmD Unavailable +9 Dasia Waters PharmD Unavailable [phone] Reason for Visit * Reason Onset Date Comments FYI 11/06/2023 Encounter Details Date Type Department Care Team ([facility] st Contact Info) Description 11/06/2023 Telephone [facility] [address] [place], [place] [phone] Pascual Daly MD 230 [place] [address] Social History Tobacco Use Types Packs/Day Years [...] 11/06/2023 4:39 PM EDT Tc from [facility] Iker CORDERO PT informing pt has started services For PT 11/06/23 documented in this encounter Plan of Treatment Upcoming Encounters Date Type Department Care Team (Late st Contact Info) Description 01/17/2025 10:30 AM EDT Medication Management [facility] [address] [place] [address] Dasia Waters, PharmD 230 [place] [address] 01/20/2025 10:30 AM EDT Clinical Support [facility] CHC MED & PEDS 505 [place] [address] Amanda Fernández, RN 505 [place] [address] 01/26/2025 9:00 AM EDT Office Visit [facility] ADULT DENTAL [address] [place] [address] Christian [place] DDS 230 [place] [address] 02/17/2025 10:15 AM EDT Office Visit [facility] 230 [facility] [place] [phone] Gabriela Gaitan [address] [place], [place] [phone] documented as of this encounter Goals Goal [...] documented as of this encounter Care Teams Sorter Lumber Straightener Relationship Specialty Start Date End Date Pascual [place] [address] PCP - General Internal Medicine 02/22/14 Fani Heck, PharmD [address], [place] [phone] Pharmacist Internal Medicine 12/16/22 08/15/24 Dasia Waters, Krist[place] [address] Pharmacist Internal Medicine 08/16/24 [facility] 12/18/24 documented as of this encounter
--- OUTSIDE RECORDS SUMMARY | 2025-01-13 09:22 | XMS_ITS | Encounter Summary ---
Author Organization [employer] Address 75 [facility] 7t [place] [address] Care Team Providers Care Business Executive Name Role Phone Pascual Daly MD Primary Care Provide r Fani Heck PharmD Unavailable +7 Dasia Waters PharmD Unavailable [phone] Reason for Visit * Reason Comments Med Refill Encounter Details Date Type Department Care Team (Late st Contact Info) Description 01/01/2024 Refill [facility] [address] [place], [place] [phone] Momo Rizo MD 230 [place] [address] Social History Tobacco Use Types Packs/Day Years [...] 10:30 AM EDT Medication Management [facility] [address] [place] [address] Dasia Waters, PharmD 230 [place] [address] 01/20/2025 10:30 AM EDT Clinical Support [facility] MED & PEDS 505 [place] [address] Amanda Fernández, RN 505 [place] [address] 01/26/2025 9:00 AM EDT Office Visit [facility] ADULT DENTAL [address] [place] [address] Christian [place] DDS 230 [place] [address] 02/17/2025 10:15 AM EDT Office Visit [facility] ADULT [facility] [address] [place] [address] Gabriela Gaitan [address] [place] [address] documented as of this encounter Goals Goal [...] as of this encounter Care Teams Business Executive Relationship Specialty Start Date End Date Pascual Daly MD 230 [place] [address] PCP - General Internal Medicine 02/22/14 Fani Heck, PharmD 230 [place] [address] Pharmacist Internal Medicine 12/16/22 08/15/24 Dasia Waters PharmD 230 [place] [address] Pharmacist Internal Medicine 08/16/24 Iker MARCUSA 12/18/24 documented as of this encounter
--- OUTSIDE RECORDS SUMMARY | 2025-01-13 09:22 | XMS_ITS | Encounter Summary ---
Author Organization [employer] Address 75 [facility] 7t [place] [address] Care Team Providers Care Lead Java J2Ee Developer Name Role Phone Pascual Daly MD Primary Care Provide r Dasia Waters PharmD Unavailable [phone] Reason for Visit * Reason Onset Date Comments Med Refill 01/11/2025 Encounter Details Date Type Department Care Team (Late st Contact Info) Description 01/11/2025 Refill [facility] MEDICINE 230 [place] [address] Pascual Daly MD 230 [place] [address] Long-term current use of opiate analgesic (Primary Dx) Social History Tobacco Use Types [...] encounter Miscellaneous Notes * Telephone Encounter - Bernabe Collins - 01/11/2025 1:53 PM EDT TC from pt requesting medication refill. Medications needing refill : oxyCODONE (Roxicodone) 5 MG immediate release tablet To be sent to: [facility] - [place], [place] - [address] [place] [address] documented in this encounter Plan of Treatment Upcoming Encounters Date Type Department Care Team ([facility] st Contact Info) Description 01/17/2025 10:30 AM EDT Medication Management [facility] MEDICINE 230 [place] [address] Dasia Waters, PharmD 230 [place] [address] 01/20/2025 10:30 AM EDT Clinical Support [facility] CHC MED & PEDS 505 [place] [address] Amanda Fernández, RN 505 [place] [address] 01/26/2025 9:00 AM EDT Office Visit [facility] ADULT DENTAL 230 [place] [address] Christian [place] DDS 230 [place] [address] 02/17/2025 10:15 AM EDT Office Visit [facility] ADULT DENTAL 230 [place] [address] Gabriela Gaitan 230 [place] [address] documented as of this encounter Goals Goal Patient Goal Type Associated Problems Recent Progress Patient-Stated? Author Blood Pressure < 140/90 Blood Pressure 126/59( 9:28 AM EDT) Fani Thomas, Woody documented as of this encounter Visit Diagnoses Diagnosis Long-term current use of opiate analgesic- Primary Encounter for long-term (current) use of other medications documented in this encounter Additional Health Concerns Assessment Noted Time PHQ-9 Depression Total Score: 12 025 9:30 AM EDT documented as of this encounter Care Teams Lead Java J2Ee Developer Relationship Specialty Start Date End Date Pascual Daly MD [address] [place] [address] PCP - General Internal Medicine 02/22/14 Dasia Waters PharmD [address] [place] [address] Pharmacist Internal Medicine 08/16/24 [facility] 12/18/24 documented as of this encounter
--- OUTSIDE RECORDS SUMMARY | 2025-01-13 09:22 | XMS_ITS | Encounter Summary ---
Author Organization [employer] Address 75 [facility] 7t [place] [address] Care Team Providers Care Sales Account Associate Name Role Phone Pascual Daly MD Primary Care Provide r Fani Heck PharmD Unavailable [phone] Dasia Waters PharmD Unavailable [phone] Reason for Visit * Reason Comments Med Refill Encounter Details Date Type Department Care Team (Late st Contact Info) Description 03/04/2023 Refill [facility] 230 [place] [address] Pascual Daly MD 230 [place] [address] Type 2 diabetes mellitus without complication, with long-term current use of insulin ([facility]) Social History Tobacco Use Types Packs/Day [...] Description 01/17/2025 10:30 AM EDT Medication Management [facility] 230 [place] [address] Dasia Waters, PharmD 230 [place] [address] 01/20/2025 10:30 AM EDT Clinical Support [facility] CHC MED & PEDS 505 [place] [address] Amanda Fernández, RN 505 [place] [address] 01/26/2025 9:00 AM EDT Office Visit [facility] ADULT DENTAL 230 [place] [address] Christian W[place] DDS 230 [place] [address] 02/17/2025 10:15 AM EDT Office Visit [facility] ADULT DENTAL 230 [place] [address] Gabriela Gaitan 230 [place] [address] documented as of this encounter Goals Goal Patient Goal Type Associated Problems Recent Progress Patient-Stated? Author Blood Pressure < 140/90 Blood Pressure 126/59( 025 9:28 AM EDT) No Fani Heck, PharmGuido documented as of this encounter Visit Diagnoses Diagnosis Type 2 diabetes mellitus without complication, with long-term current use of insulin ([facility]) documented in this encounter Additional Health Concerns Assessment Noted Time PHQ-9 Depression Total Score: 9 02/25/20 23 11:02 AM EST documented as of this encounter Care Teams Sales Account Associate Relationship Specialty Start Date End Date Pascual Daly MD 230 [place] [address] PCP - General Internal Medicine 02/22/14 Fani Heck, PharmD 230 [place] [address] Pharmacist Internal Medicine 12/16/22 08/15/24 Dasia Waters PharmD 230 [place] [address] Pharmacist Internal Medicine 08/16/24 Iker CORDERO 12/18/24 documented as of this encounter
--- OUTSIDE RECORDS SUMMARY | 2025-01-13 09:22 | XMS_ITS | Encounter Summary ---
Author Organization [employer] Address 75 [facility] 7t [place] [address] Care Team Providers Care Business Segment Manager Name Role Phone Pascual Daly MD Primary Care Provide r Fani Heck PharmD Unavailable +7 Dasia Waters PharmD Unavailable [phone] Encounter Details Date Type Department Care Team (Late Contact Info) Description 05/29/2022 Abstract [facility] 230 [place] [address] Pascual Daly MD 230 [place] [address] Social History Tobacco Use Types Packs/Day Years [...] Medication Management [facility] [address] [place] [address] Dasia Waters PharmD 230 [place] [address] 01/20/2025 10:30 AM EDT Clinical Support [facility]S 505 [place] [address] Amanda Fernández, RN 505 [place] [address] 01/26/2025 9:00 AM EDT Office Visit [facility] ADULT DENTAL 230 [place] [address] Christian W[place] DDS [address] [place] [address] 02/17/2025 10:15 AM EDT Office Visit [facility] ADULT DENT[facility] [address] [place] [address] Kandy Gabriela 230 [place] [address] documented as of this encounter Goals Goal [...] as of this encounter Care Teams Business Segment Manager Relationship Specialty Start Date End Date Pascual Daly MD 230 [place] [address] PCP - General Internal Medicine 02/22/14 Fani Heck, KristiD [address] [place] [address] Pharmacist Internal Medicine 12/16/22 08/15/24 Dasia Waters, KristiD [address] [place] [address] Pharmacist Internal Medicine 08/16/24 Iker A 12/18/24 documented as of this encounter
--- OUTSIDE RECORDS SUMMARY | 2025-01-13 09:22 | XMS_ITS | Encounter Summary ---
Author Organization [employer] Address 75 [facility] 7t [place] [address] Care Team Providers Care Conveyor Feeder Offbearer Name Role Phone Pascual Daly MD Primary Care Provide r Fani Heck PharmD Unavailable + Dasia Waters PharmD Unavailable [phone] Encounter Details Date Type Department Care Team (Late st Contact Info) Description 03/11/2022 Abstract [facility] MEDICINE 230 [place] [address] Pascual Daly MD 230 [place], [place] [phone] Social History Tobacco Use Types Packs/Day Years [...] 10:30 AM EDT Medication Management [facility] MED[facility]INE 230 [place] [address] Dasia Waters, PharmD 230 [place] [address] 01/20/2025 10:30 AM EDT Clinical Support [facility] CH[facility] MED & PEDS 505 [place] [address] Amanda Fernández, RN 505 [place] [address] 01/26/2025 9:00 AM EDT Office Visit [facility] ADULT DENTAL 230 [place] [address] Christian W[place] DDS 230 [place] [address] 02/17/2025 10:15 AM EDT Office Visit [facility] ADULT DENTAL 230 [place] [address] Gabriela Gaitan 230 [place] [address] documented as of this encounter Visit Diagnoses Not on filedocumented in this encounter Care Teams Conveyor Feeder Offbearer Relationship Specialty Start Date End Date Pascual Daly MD [address] [place] [address] PCP - General Internal Medicine 02/22/14 Fani Heck, KristiD [address] [place] [address] Pharmacist Internal Medicine 12/16/22 08/15/24 Dasia Waters, KristiD [address] [place] [address] Pharmacist Internal Medicine 08/16/24 [facility] 12/18/24 documented as of this encounter
--- OUTSIDE RECORDS SUMMARY | 2025-01-13 09:22 | XMS_ITS | Encounter Summary ---
Author Organization [employer] Address 75 [facility] 7t [place] [address] Care Team Providers Care Feather Stitcher Name Role Phone Pascual Daly MD Primary Care Provide r Fani Heck PharmD Unavailable +1 Dasia Waters PharmD Unavailable [phone] Reason for Visit * Reason Onset Date Comments Med Refill 12/15/2023 Encounter Details Date Type Department Care Team ([facility] st Contact Info) Description 12/15/2023 Telephone [facility] 230 [place], [place] [phone] Pascual Daly MD 230 [place], [place] [phone] Med Refill Social History Tobacco Use Types [...] immediate release tablet To be sent to: [facility] - [place], [place] - [address] [place] [address] documented in this encounter Plan of Treatment Upcoming Encounters Date Type Department Care Team ([facility] st Contact Info) Description 01/17/2025 10:30 AM EDT Medication Management [facility] 230 [place] [address] Dasia Waters, PharmD 230 [place] [address] 01/20/2025 10:30 AM EDT Clinical Support [facility] PEDS 505 [place] [address] Amanda Fernández, RN 505 [place] [address] 01/26/2025 9:00 AM EDT Office Visit [facility] ADULT DENTAL 230 [place], [place] [phone] Christian [place] DDS 230 [place] [address] 02/17/2025 10:15 AM EDT Office Visit [facility] ADULT DENTAL 230 [place] [address] Gabriela Gaitan 230 [place] [address] documented as of this encounter Goals Goal [...] documented as of this encounter Care Teams Feather Stitcher Relationship Specialty Start Date End Date Pascual Daly MD 230 [place] [address] PCP - General Internal Medicine 02/22/14 Fani Heck, [place] [address] Pharmacist Internal Medicine 12/16/22 08/15/24 Dasia [place] [address] Pharmacist Internal Medicine 08/16/24 [facility] 12/18/24 documented as of this encounter
--- OUTSIDE RECORDS SUMMARY | 2025-01-13 09:22 | XMS_ITS | Encounter Summary ---
Author Organization [employer] Address 75 [facility] 7t [place] [address] Care Team Providers Care Vice President Of Talent Acquisition Name Role Phone Pascual Daly MD Primary Care Provide r Fani Heck PharmD Unavailable + Dasia Waters PharmD Unavailable [phone] Reason for Visit * Reason Onset Date Comments Appointment Request 09/03/2022 Encounter Details Date Type Department Care Team ([facility] st Contact Info) Description 09/03/2022 Telephone [facility] MEDICINE 230 [place], [place] [phone] Pascual Daly MD 230 [place] [address] Appointment Request Social History Tobacco Use Types [...] Description 01/17/2025 10:30 AM EDT Medication Management [facility] MEDICINE 230 [place] [address] Dasia Waters PharmD 230 [place] [address] 01/20/2025 10:30 AM EDT Clinical Support [facility] MED & PEDS 505 [place] [address] Amanda Fernández, RN 505 [place] [address] 01/26/2025 9:00 AM EDT Office Visit [facility] ADULT DENTAL 230 [place] [address] Christian [place] DDS 230 [place] [address] 02/17/2025 10:15 AM EDT Office Visit [facility] ADULT DENTAL 230 [place] [address] Gabriela Gaitan 230 [place] [address] documented as of this encounter Goals Goal [...] of this encounter Care Teams Vice President Of Talent Acquisition Relationship Specialty Start Date End Date Pascual Daly MD 230 [place] [address] PCP - General Internal Medicine 02/22/14 Fani Heck, KristiD [address] [place] [address] Pharmacist Internal Medicine 12/16/22 08/15/24 Dasia Waters PharmD [address] [place] [address] Pharmacist Internal Medicine 08/16/24 Iker MARCUSA 12/18/24 documented as of this encounter
--- OUTSIDE RECORDS SUMMARY | 2025-01-13 09:22 | XMS_ITS | Encounter Summary ---
Author Organization [employer] Address 75 [facility] 7t [place] [address] Care Team Providers Care Ground Wirer Name Role Phone Pascual Daly MD Primary Care Provide r Fani Heck PharmD Unavailable +3 Dasia Waters PharmD Unavailable [phone] Encounter Details Date Type Department Care Team (Late Contact Info) Description 08/29/2022 Abstract [facility] MEDICINE 230 [place] [address] Pascual Daly MD 230 [place] [address] Social History Tobacco Use Types Packs/Day Years [...] EDT Medication Management [facility] 230 [place] [address] Dasia Waters, KristiD 230 [place] [address] 01/20/2025 10:30 AM EDT Clinical Support [facility] MED [facility] PEDS 505 [place] [address] Amanda Fernández, RN 505 [place] [address] 01/26/2025 9:00 AM EDT Office Visit [facility] ADULT DENTAL 230 [place] [address] Christian [place] DDS 230 [place] [address] 02/17/2025 10:15 AM EDT Office Visit [facility] ADULT DENTAL 230 [place] [address] Kandy, Gabriela 230 [place] [address] documented as of this encounter Goals Goal [...] documented as of this encounter Care Teams Ground Wirer Relationship Specialty Start Date End Date Pascual Daly MD 230 [place] [address] PCP - General Internal Medicine 02/22/14 Fani Heck PharmD 230 [place] [address] Pharmacist Internal Medicine 12/16/22 08/15/24 Dasia Waters PharmD 230 [place] [address] Pharmacist Internal Medicine 08/16/24 [facility] documented as of this encounter
--- OUTSIDE RECORDS SUMMARY | 2025-01-13 09:22 | XMS_ITS | Encounter Summary ---
Author Organization [employer] Address 75 [facility] 7t [place] [address] Care Team Providers Care Terminal Computer Operator Name Role Phone Pascual Daly MD Primary Care Provide r Fani Heck PharmD Unavailable +7 Dasia Waters PharmD Unavailable [phone] Reason for Visit * Reason Onset Date Comments FYI 12/31/2023 Encounter Details Date Type Department Care Team ([facility] st Contact Info) Description 12/31/2023 Telephone [facility] MEDICINE 230 [place], [place] [phone] Pascual Daly MD 230 [place] [address] Social History Tobacco Use Types Packs/Day Years [...] any questions you can contact Franky at [phone]. documented in this encounter Plan of Treatment Upcoming Encounters Date Type Department Care Team (Late st Contact Info) Description 01/17/2025 10:30 AM EDT Medication Management [facility] MEDICINE 230 [place] [address] Dasia Waters, PharmD 230 [place] [address] 01/20/2025 10:30 AM EDT Clinical Support [facility] MED & PEDS 505 [place] [address] Amanda Fernández, RN 505 [place] [address] 01/26/2025 9:00 AM EDT Office Visit [facility] ADULT DENTAL 230 [place] [address] Christian [place] DDS 230 [place] [address] 02/17/2025 10:15 AM EDT Office Visit [facility] ADULT DENTAL 230 [place] [address] Gabriela Gaitan 230 [place] [address] documented as of this encounter Goals Goal [...] documented as of this encounter Care Teams Terminal Computer Operator Relationship Specialty Start Date End Date Pasc[place] [address] PCP - General Internal Medicine 02/22/14 Fain Heck, [place] [address] Pharmacist Internal Medicine 12/16/22 08/15/24 Dasia Waters, [place] [address] Pharmacist Internal Medicine 08/16/24 [facility] 12/18/24 documented as of this encounter
--- OUTSIDE RECORDS SUMMARY | 2025-01-13 09:22 | XMS_ITS | Encounter Summary ---
Author Organization [employer] Address 75 [facility] 7t [place] [address] Care Team Providers Care Mortgage Loan Processing Clerk Name Role Phone Pascual Daly MD Primary Care Provide r Fani Heck PharmD Unavailable +3 Dasia Waters PharmD Unavailable [phone] Reason for Visit * Reason Comments Med Refill Encounter Details Date Type Department Care Team (Late st Contact Info) Description 10/21/2023 Refill [facility] MED[facility]INE 230 [place] [address] Titi Gray FNP Major depressive disorder with [...] 10:30 AM EDT Medication Management [facility] MEDICINE [address] [place] [address] Dasia Waters, KristiD 230 [place] [address] 01/20/2025 10:30 AM EDT Clinical Support [facility] MED & PEDS 505 [place] [address] Amanda Fernández, RN 505 [place] [address] 01/26/2025 9:00 AM EDT Office Visit [facility] ADULT DENTAL 230 [place] [address] Christian [place] DDS 230 [place] [address] 02/17/2025 10:15 AM EDT Office Visit [facility] ADULT DENTAL 230 [place] [address] Gabriela Gaitan 230 [place] [address] documented as of this encounter Goals Goal [...] of this encounter Care Teams Mortgage Loan Processing Clerk Relationship Specialty Start Date End Date Pascual Daly MD 230 [place] [address] PCP - General Internal Medicine 02/22/14 Fani Heck, PharmD 230 [place] [address] Pharmacist Internal Medicine 12/16/22 08/15/24 Dasia Waters PharmD 230 [place] [address] Pharmacist Internal Medicine 08/16/24 [facility] 12/18/24 documented as of this encounter
--- OUTSIDE RECORDS SUMMARY | 2025-01-13 09:22 | XMS_ITS | Encounter Summary ---
Author Organization [employer] Address 75 [facility] 7t [place] [address] Care Team Providers Care Lawn Mower Repairer Name Role Phone Pascual Daly MD Primary Care Provide r Fani Heck PharmD Unavailable +3 Dasia Waters PharmD Unavailable [phone] Reason for Visit * Reason Comments Med Refill Encounter Details Date Type Department Care Team ([facility] st Contact Info) Description 07/16/2022 Refill [facility] MEDICINE 230 [place] [address] Pascual Daly MD 230 [place] [address] Social History Tobacco Use Types Packs/Day Years [...] Description 01/17/2025 10:30 AM EDT Medication Management [facility] MEDICINE 230 [place] [address] Dasia Waters PharmD 230 [place] [address] 01/20/2025 10:30 AM EDT Clinical Support [facility]EDS 505 [place] [address] Amanda Fernández, AALIYAH 505 [place] [address] 01/26/2025 9:00 AM EDT Office Visit [facility] ADULT DENTAL 230 [place] [address] Christian [place] DDS [address] [place] [address] 02/17/2025 10:15 AM EDT Office Visit [facility] ADULT DENTAL 230 [place] [address] Gabriela Gaitan 230 [place] [address] documented as of this encounter Goals Goal [...] documented as of this encounter Care Teams Lawn Mower Repairer Relationship Specialty Start Date End Date Pascual Daly MD [address] [place] [address] PCP - General Internal Medicine 02/22/14 Fani Heck, KristiD [address] [place] [address] Pharmacist Internal Medicine 12/16/22 08/15/24 Dasia Waters, Woody [address] [place] [address] Pharmacist Internal Medicine 08/16/24 Iker CORDERO 12/18/24 documented as of this encounter
--- OUTSIDE RECORDS SUMMARY | 2025-01-13 09:22 | XMS_ITS | Encounter Summary ---
Author Organization [facility] Address [address] [facility] 7t [place] [address] Care Team Providers Care Internet Sales Representative Name Role Phone Pascual Daly MD Primary Care Provide r Fani Heck PharmD Unavailable [phone] Dasia Waters PharmD Unavailable [phone] Encounter Details Date Type Department Care Team (Late Contact Info) Description 03/13/[address] [facility] MEDICINE [address] [place] [phone] Provider, MD Bill Social History Tobacco Use [...] Upcoming Encounters Date Type Department Care Team ([facility] Contact Info) Description 01/17/2025 10:30 AM EDT Medication Management [facility] MEDICINE [address] [place] [address] Dasia Waters, PharmD 230 [place] [address] 01/20/2025 10:30 AM EDT Clinical Support [facility] CHC MED & PEDS [address] [place] [address] Amanda Fernández, RN [address] [place] [address] 01/26/2025 9:00 AM EDT Office Visit [facility] ADULT DENTAL [address] [place] [address] Christian Winchester DDS [address] [place] [address] 02/17/2025 10:15 AM EDT Office Visit [facility] ADULT DENTAL [address] [place] [address] Kandy, Gabriela [address] [place] [address] documented as of this encounter Visit Diagnoses Not on filedocumented in this encounter Care Teams Internet Sales Representative Relationship Specialty Start Date End Date Pascual Daly MD [address] [place] [phone] PCP - General Internal Medicine 02/22/14 Fani Heck, KristiD [address] [place] [phone] Pharmacist Internal Medicine 12/16/22 08/15/24 Dasia Waters, KristiD [address] [place] [phone] Pharmacist Internal Medicine 08/16/24 [place] [facility] 12/18/24 documented as of this encounter
--- OUTSIDE RECORDS SUMMARY | 2025-01-13 09:22 | XMS_ITS | Encounter Summary ---
Author Organization [facility] Address [address] [facility] [address] [facility] [address] 7[address] [place] [address] Care Team Providers Care Panama Hat Hydraulic Press Operator Name Role Phone Pascual Daly MD Primary Care Provide r Fani Heck PharmD Unavailable + Dasia Waters PharmD Unavailable [phone] Encounter Details Date Type Department Care Team (Late st Contact Info) Description 03/05/2024 Refill [facility] MEDICINE [address] [place] [address] Jefry Chun Benign hypertension; Type 2 diabetes mellitus without complication, with long-term current use of insulin ([facility]) Social History Tobacco Use Types [...] Medication Management [facility] MEDICINE [address] [place] [address] Dasia Waters, KristiD [address] [place] [address] 01/20/2025 10:30 AM EDT Clinical Support [facility] CHC MED & PEDS [address] [place] [address] Amanda Fernández, RN 505 [place] [address] 01/26/2025 9:00 AM EDT Office Visit [facility] ADULT DENTAL [address] [place] [address] Christian Winchester DDS [address] [place] [address] 02/17/2025 10:15 AM EDT Office Visit [facility] ADULT DENTAL [address] [place] [address] Gabriela Gaitan [address] [place] [address] documented as of this encounter Goals Goal Patient Goal Type Associated Problems Recent Progress Patient-Stated? Author Blood Pressure < 140/90 Blood Pressure 126/59( 025 9:28 AM EDT) No Fani Heck, PharmD documented as of this encounter Visit Diagnoses Diagnosis Benign hypertension Essential hypertension, benign Type 2 diabetes mellitus without complication, with long-term current use of insulin ([facility]) documented in this encounter Additional Health Concerns Assessment Noted Time PHQ-9 Depression Total Score: 9 01/29/20 24 11:00 AM EDT documented as of this encounter Care Teams Panama Hat Hydraulic Press Operator Relationship Specialty Start Date End Date Pascual Daly MD [address] [place] [phone] PCP - General Internal Medicine 02/22/14 Fani Heck, PharmD [address] [place] [phone] Pharmacist Internal Medicine 12/16/22 08/15/24 Dasia Waters PharmD [address] [place] [phone] Pharmacist Internal Medicine 08/16/24 Iker MARCUSA 12/18/24 documented as of this encounter
== END 2025-01-13 09:11 | disposition home or self-care (01) ==
LOC: HO.HCS 08:46
PROVIDERS: PCP Internal Medicine; Visit Provider Internal Medicine
DX: I25.10 Atherosclerotic heart disease of native coronary artery without angina pectoris (principal); I34.81 Nonrheumatic mitral (valve) annulus calcification; E11.8 Type 2 diabetes mellitus with unspecified complications; I10 Essential (primary) hypertension; E78.5 Hyperlipidemia, unspecified
CPT/HCPCS: 99214; G2211

== ENCOUNTER → 2025-01-13 08:46 | Outpatient (BNVA) | payer OTHER, SELFPAY | PROVIDERS: PCP Internal Medicine; Visit Provider Internal Medicine | DX: I25.10 Atherosclerotic heart disease of native coronary artery without angina pectoris (principal); I34.81 Nonrheumatic mitral (valve) annulus calcification; E11.8 Type 2 diabetes mellitus with unspecified complications; I10 Essential (primary) hypertension; E78.5 Hyperlipidemia, unspecified | CPT/HCPCS: 99212 ==

== ENCOUNTER 2025-02-09 12:03 | Outpatient (REF) | payer OTHER, SELFPAY ==
--- NOTE | ~2025-02-09 | XR_ITS ---
EXAMINATION: XR ABDOMEN KUB CLINICAL INDICATION: abdominal pain, concentrated suprapubically COMPARISON: None available. TECHNIQUE: AP view of the abdomen. FINDINGS: Surgical clips are visible in the upper abdomen and left of the lumbar spine. There is gas in small and large bowel. On upright imaging, there are air-fluid levels that are in plane. XR/XR KUB IMPRESSION: Suspected paralytic ileus. Numerous surgical clips. Electronically signed by: Hi Nava MD 02/09/2025 01:23 PM EDT
--- OUTSIDE RECORDS SUMMARY | 2025-02-09 11:00 | XMS_ITS | Encounter Summary ---
Author Organization [facility] [facility] Address [address] [facility] 7t [place] [address] Care Team Providers Care Regional Liaison Name Role Phone Pascual Daly MD Primary Care Provide r Reason for Visit * Reason Comments abdomen pain [id number] Encounter Details Date Type Department Care Team ([facility] st Contact Info) Description 02/09/2025 11:00 AM EDT Office Visit [facility] WALK-IN CENTER [address] [place] [phone] Raven Polanco MD [address] [place] [address] Suprapubic pain (Primary Dx); Bladder pain; Dietary counseling; Exercise counseling; Class 1 obesity with serious comorbidity and body mass index (BMI) of 30.0 to 30.9 in adult, unspecified obesity type; Paralytic ileus (CMS/HCC) (HCC) Social History Tobacco Use Types Packs/Day Years [...] the past 12 months, has t he [employer], gas, oil or water company threatened to [...] Sign Reading Time Taken Comments Blood Pressure 162/77 02/09/2025 11:05 AM EDT Pulse 86 02/09/2025 11:05 AM EDT Temperature 36.7 C (98 F) 02/09/2025 11:05 AM EDT Respiratory Rate 20 02/09/2025 11:05 AM EDT Oxygen Saturation - - Inhaled Oxygen Concentration - - Weight 67.8 kg (149 lb 6.4 oz) 02/09/2025 11:05 AM EDT Height 149.9 cm (4' 11 ) 02/09/2025 11:05 AM EDT Body Mass Index 30.18 02/09/2025 11:05 AM EDT documented in this encounter Progress Notes * Raven Polanco MD - 02/09/2025 11:00 AM EDT SUBJECTIVE: Brandie Santana is a 75 y.o. female who presents for acute visit. Denies recent illness, ER visit, or hospitalization. Acute Concerns: Patient with lower abdominal pain x 2 weeks, more acutely than she usually feels. Has little appetite, and pain with eating. No fevers or chills. No vomiting. Urinates multiple times a day, no blood or mucous in that. Needs to take Linzess to have a bowel movement and if she does so, will have small volume of stool. No pain with defecation. No blood in stool. Had normal colonoscopy years ago. Latest Reference Range & Units 02/09/25 11:17 Color, UA Yellow Specific [place], UA 1.020 pH, UA 6.0 Ketones, UA Negative Protein, UA Trace Nitrite, UA Negative, None Detected Negative RBC, UA Negative, None Detected Negative Clarity, UA Clear Glucose, UA Negative Leukocytes, UA Negative, Rare, Trace Negative Bilirubin UA Negative Urobilinogen, UA 0.2 Xray 02/09/25 FINDINGS: Surgical clips are visible in the upper abdomen and left of the lumbar spine. There is gas in small and large bowel. On upright imaging, there are air-fluid levels that are in plane. XR/XR KUB IMPRESSION: Suspected paralytic ileus. Numerous surgical clips Patient Active Problem List Diagnosis Date Noted Dental caries 01/26/2025 Abdominal pain 01/14/2025 Acute hyperglycemia 01/14/2025 [place] (acute kidney injury) 01/14/2025 Asthma 01/14/2025 Atypical chest pain 01/14/2025 Cholecystitis 01/14/2025 Chronic gastritis 01/14/2025 Chronic idiopathic constipation 01/14/2025 Clavicular fracture 01/14/2025 Right clavicle fracture 01/14/2025 Contracture of joint of finger of left hand 01/14/2025 Dislocation closed, finger 01/14/2025 Dyslipidemia 01/14/2025 Elevated liver function tests 01/14/2025 Elevated parathyroid hormone 01/14/2025 Fracture of nasal bone 01/14/2025 Fracture of wrist 01/14/2025 Head injury 01/14/2025 Heart palpitations 01/14/2025 Hepatitis C antibody positive in blood 01/14/2025 Diabetes (HCC) 01/14/2025 Hypoglycemia due to insulin 01/14/2025 Hypoglycemia 01/14/2025 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 (HCC) 01/14/2025 Intestinal malabsorption following gastrectomy 01/14/2025 Intra-abdominal abscess (CMS/HCC) (HCC) 01/14/2025 Laceration of nose 01/14/2025 Leukocytosis 01/14/2025 Nontraumatic subluxation of extensor tendon at metacarpophalangeal joint of left hand 01/14/2025 NSTEMI (non-ST elevated myocardial infarction) ([facility]) 01/14/2025 Obesity (BMI 30-39.9) 01/14/2025 Osteoarthritis of right knee 01/14/2025 Pleural effusion, bilateral 01/14/2025 S/P laparoscopic cholecystectomy 01/14/2025 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 01/14/2025 Shortness of breath 01/14/2025 Joint swelling 01/14/2025 Swelling of knee joint, right 01/14/2025 Trigger finger, left ring finger 01/14/2025 Urinary incontinence 01/04/2025 Aphthous ulcer 09/16/2024 Coronary artery disease involving [place] coronary artery of [place] heart without angina pectoris 08/12/2024 Dental plaque 08/05/2024 Localized gingival recession 08/05/2024 Xerostomia 08/05/2024 Long-term current use of opiate analgesic 07/22/2024 Sore throat 01/29/2024 Age-related osteoporosis without current pathological fracture 10/21/2023 Acute pain of left shoulder 10/21/2023 Closed fracture of multiple ribs of left side with routine healing 10/21/2023 Asthenia 09/17/2023 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 Irritable bowel syndrome 09/17/2023 Obesity 09/17/2023 Acute bronchitis due to respiratory syncytial virus (RSV) 04/30/2023 Mild intermittent asthma with acute exacerbation 04/16/2023 Preventative health care 08/27/2022 S/P gastric bypass 08/27/2022 Hair loss 08/27/2022 Rheumatoid arthritis involving multiple sites with positive rheumatoid factor ([facility]) ([facility]) 08/27/2022 Gastroesophageal reflux disease without esophagitis 05/13/2022 Major depressive disorder with psychotic features ([facility]) ([facility]) 03/26/2022 Neuropathy, cervical 02/13/2018 Hypertension 09/02/2012 Recurrent falls 12/04/2011 Type 2 diabetes mellitus with right eye affected by mild nonproliferative retinopathy without macular edema, with long-term current use of insulin ([facility]) 04/21/1959 Eczema 04/21/1959 Fibromyalgia 04/21/1959 Hyperlipidemia 04/21/1959 Hypothyroidism 04/21/1959 Iron deficiency anemia 04/21/1959 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 Surgical History[1] Social History Social History Narrative Not on file Review of Systems Constitutional: Positive for activity change and appetite change. HENT: Negative. Respiratory: Negative. Gastrointestinal: Positive for abdominal pain and constipation. Negative for abdominal distention, anal bleeding, blood in stool, diarrhea, nausea, rectal pain and vomiting. Genitourinary: Positive for flank pain. Negative for decreased urine volume, difficulty urinating, dysuria and urgency. OBJECTIVE: Vitals: 02/09/25 1105 BP: (!) 162/77 BP Location: Left arm Patient Position: Sitting BP Cuff Size: Large adult Pulse: 86 Resp: 20 Temp: 98 ??F (36.7 ??C) TempSrc: Oral Weight: 149 lb 6.4 oz (67.8 kg) Height: 4' 11 (1.499 m) Physical Exam Vitals reviewed. Constitutional: General: She is in acute distress. Appearance: Normal appearance. Comments: Pt is hunched over and clutching her abdomen HENT: Head: Normocephalic and atraumatic. Cardiovascular: Rate and Rhythm: Normal rate and regular rhythm. Pulses: Normal pulses. Heart sounds: Normal heart sounds. Pulmonary: Effort: Pulmonary effort is normal. Breath sounds: Normal breath sounds. Abdominal: General: There is no distension. Palpations: Abdomen is soft. There is no mass. Tenderness: There is abdominal tenderness. There is right CVA tenderness and left CVA tenderness. There is no guarding or rebound. Hernia: No hernia is present. Comments: Pt exquisitely sensitive to light palpation in the lower abdomen, tender but to a lesser degree in the upper abdominal quadrants Skin: General: Skin is warm and dry. Neurological: General: No focal deficit present. Mental Status: She is alert and oriented to person, place, and time. Psychiatric: Mood and Affect: Mood normal. Behavior: Behavior normal. ASSESSMENT/PLAN Problem List Items Addressed This Visit Abdominal pain - Primary Relevant Orders CBC auto differential Comprehensive Metabolic Panel Lipase XR KUB and Upright 2 Views (Completed) Obesity Other Visit Diagnoses Bladder pain Relevant Orders POCT Urinalysis (Completed) XR KUB and Upright 2 Views (Completed) Dietary counseling Exercise counseling Paralytic ileus (CMS/HCC) (HCC) Received xray results consistent with ileus, referred to [facility] for advanced imaging and possible admission Follow Up: per PCP followup or sooner prn Allergies[2] Current Medications[3] Turkish Translation: Provided by [facility] staff member RADHA Paige [1] History reviewed. No pertinent surgical history. [2] Allergies Allergen Reactions Celecoxib Nausea Only and Unknown Lorazepam Unknown Naproxen Unknown Tramadol Hives and Unknown Zolpidem Anxiety and Unknown [3] Current Outpatient Medications: acetaminophen (Tylenol) 500 MG tablet, take 1 tablet (500MG) by oral route every 6 hours as needed,Disp: , Rfl: Actemra ACTPen 162 MG/0.9ML solution [...] mouth at bedtime., Disp: , Rfl: Blood Glucose Monitoring Suppl (FreeStyle Lite) w/Device kit, 1 each if needed in the morning, at noon, and at bedtime (Sensor failure)., Disp: 1 kit, Rfl: 0 Blood Pressure Monitoring (Adult Blood Pressure Cuff [...] Rfl: Continuous Glucose Sensor (Dexcom G7 Sensor) [facility], DIRECTED, Disp: , Rfl: cyclobenzaprine (Flexeril) 10 MG tablet, Take 10 mg by mouth if needed in the morning, at noon, andat bedtime for muscle spasms., Disp: , Rfl: D3 Super Strength 50 [...] , Rfl: gabapentin (Neurontin) 100 MG capsule, Take 1 capsule (100 mg) by mouth 2 times daily., Disp: 180 capsule, Rfl: 1 glucose blood (FREESTYLE LITE) test strip, USE 1 Each by DIRECTED route 4 times every day, Disp:, Rfl: hydrOXYzine HCl (Atarax) 10 MG tablet, Take 1 tablet (10 mg) by mouth every 8 (eight) hours if needed for anxiety., Disp: 50 tablet, Rfl: 0 insulin aspart, with niacinamide, (Fiasp FlexTouch) 100 UNIT/ML injection, Inject 4-14 units beforemeals 3 times a day., Disp: [...] for sleep., Disp: 30 tablet, Rfl: 2 methocarbamol (Robaxin) 500 MG tablet, , Disp: , Rfl: naloxone (Narcan) 4 mg/0.1 mL nasal spray, 4 mg if needed for opioid reversal., Disp: , Rfl: prazosin (Minipress) 2 MG capsule, Take 3 capsules (6 mg) by mouth at bedtime., Disp: 270 capsule, Rfl: 1 predniSONE (Deltasone) 5 MG tablet, TAKE 4 TABLETS BY MOUTH ONCE DAILY FOR 7 DAYS, THEN 3 TABLETS ONCE DAILY FOR 7 DAYS, 2 TABLETS ONCE DAILY FOR 7 DAYS, THEN 1 TABLET ONCE DAILY FOR 7 DAYS, Disp: , Rfl: simethicone (Mylicon) 125 MG chewable tablet, Chew 1 tablet. 2 to 4 times daily as needed for gas, Disp: , Rfl: UltiGuard SafePack Pen Needle 32G X 4 MM misc, USE DIRECTED FIVE TIMES DAILY, Disp: , Rfl: venlafaxine XR (Effexor XR) 150 MG 24 hr capsule, , Disp: , Rfl: documented in this encounter Plan of Treatment Upcoming Encounters Date Type Department Care Team (Late st Contact Info) Description 02/17/2025 10:15 AM EDT Office Visit [facility] ADULT DENTAL [address] [place] [address] Primo Gaitanaris [address] [place] [address] 04/29/2025 10:00 AM EST Clinical Support [facility] MEDICINE [address] [place] [address] Amanda Fernández, RN [address] [place], [place] [phone] Scheduled Orders Name Type Priority Associated Diagnoses Orde r Schedule CBC auto differential Lab Routine Suprapubic pain Expected: 02/09/2025 (Approximate), Expires: 02/09/2026 Comprehensive Metabolic Panel Lab Routine Suprapubic pain Expected: 02/09/2025 (Approximate), Expires: 02/09/2026 Lipase Lab Routine Suprapubic pain Expected: 02/09/2025, Expires: 02/09/2026 documented as of this encounter Goals Goal Patient Goal Type Associated Problems Recent Progress Patient-Stated? Author Blood Pressure < 140/90 Blood Pressure 162/77( 025 11:05 AM EDT) No Fani Heck, PharmD documented as of this encounter Procedures Procedure Name Priority Date/Time Associated Diagnosis Comments XR KUB AND UPRIGHT 2 VIEWS Routine 02/09/2025 12:44 PM EDT Bladder pain Suprapubic pain POCT URINALYSIS DIPSTICK Routine 02/09/2025 11:17 AM EDT Bladder pain documented in this encounter Results * XR KUB and Upright 2 Views (02/09/2025 12:44 PM EDT) Anatomical Region Laterality Modality Radiographic Zoe ging 02/09/2025 12:4 4 PM EDT Narrative 02/09/2025 1:26 PM EDT [facility] [address] [place] [address] XRay Report Signed Patient: Brandei Santana MR#: [id number] : 1950 Acct:[id number] Age/Sex: 75 / F ADM Date: 02/09/25 Loc: [facility] Attending Dr: Raven Polanco MD Ordering Physician: Raven Polanco Date of Service: 02/09/25 Procedure(s): XR KUB Accession Number(s): [id number] cc: Raven Polanco Reason for Exam: abdominal pain, concentrated suprapubically EXAMINATION: XR ABDOMEN KUB CLINICAL INDICATION: abdominal pain, concentrated suprapubically COMPARISON: None available. TECHNIQUE: AP view of the abdomen. FINDINGS: Surgical clips are visible in the upper abdomen and left of the lumbar spine. There is gas in small and large bowel. On upright imaging, there are air-fluid levels that are in plane. XR/XR KUB IMPRESSION: Suspected paralytic ileus. Numerous surgical clips. Electronically signed by: Hi Nava MD 02/09/2025 01:23 PM EDT RP Dictated By: Hi Nava MD Signed By: <Electronically signed by Hi Nava MD in OV> 02/09/25 1323 DD/ 1244 TD/TT: 02/09/25 1310 Stay Cutter: Procedure Note Donotuseinterpreter, Image - 02/09/[address] [address] XRay Report Signed Patient: Dino Santana#: [id number] : 1950Acct:[id number] Age/Sex: 75 / FADM Date: 02/09/25 Loc: .[facility] Attending Dr: Raven Polanco MD Ordering Physician: Raven Polanco Date of Service: 02/09/25 Procedure(s): XR KUB Accession Number(s): [id number] cc: Raven Polanco Reason for Exam: abdominal pain, concentrated suprapubically EXAMINATION: XR ABDOMEN KUB CLINICAL INDICATION: abdominal pain, concentrated suprapubically COMPARISON: None available. TECHNIQUE: AP view of the abdomen. FINDINGS: Surgical clips are visible in the upper abdomen and left of the lumbar spine. There is gas in small and large bowel. On upright imaging, there are air-fluid levels that are in plane. XR/XR KUB IMPRESSION: Suspected paralytic ileus. Numerous surgical clips. Electronically signed by: Hi Nava MD 02/09/2025 01:23 PM EDT RP Dictated By: Hi Nava MD Signed By: <Electronically signed by Hi Nava MD in OV> 02/09/25 1323 DD/ 1244 TD/TT: 02/09/25 1310 Stay Cutter: Raven Polanco MD IMG XR PROCEDURES Final Result * POCT Urinalysis (02/09/2025 11:17 AM EDT) Color, UA Yellow Clarity, UA Clear Glucose, UA Negative Bilirubin, UA Negative Ketones, UA Negative Spec Grav, UA 1.020 Blood, UA Negative Negative, None Detected pH, UA 6.0 Protein, UA Trace Urobilinogen, UA 0.2 Leukocytes, UA Negative Negative, Rare, Trace Nitrite, UA Negative Negative, None Detected QC Media Lot # [id number] Lot# Expiration Date Urine (Urine, Random) 02/09/2025 11:17 AM EDT Raven Polanco MD POINT OF CARE TEST ENTER/EDIT ORDERABLES Final Result documented in this encounter Visit Diagnoses Diagnosis Suprapubic pain- Primary Abdominal pain, other specified site Bladder pain Other symptoms involving urinary system Dietary counseling Dietary surveillance and counseling Exercise counseling Class 1 obesity with serious comorbidity and body mass index (BMI) of 30.0 to 30.9 in adult, unspecified obesity type Paralytic ileus (CMS/HCC) (HCC) Paralytic ileus documented in this encounter Additional Health Concerns Assessment Noted Time PHQ-9 Depression Total Score: 12 01/04/ 025 9:30 AM EDT documented as of this encounter Care Teams Regional Liaison Relationship Specialty Start Date End Date Pascual Daly MD [address] [place] [id number] PCP - General Internal Medicine 02/22/14 Iker CORDERO 12/18/24 documented as of this encounter
--- OUTSIDE RECORDS SUMMARY | 2025-02-09 16:58 | XMS_ITS | Encounter Summary ---
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 [employer] Name Role Phone Pascual Daly MD Primary Care Provide r Fani Heck PharmD Unavailable [phone] Dasia Waters PharmD Unavailable [phone] Reason for Visit * Reason Comments Med Refill Encounter Details Date Type Department Care Team (Late st Contact Info) Description 08/26/2023 Refill [facility] [address] [place], [place] [id number] Momo Rizo MD [address] [place] [address] Benign hypertension Social History Tobacco Use Types [...] Description 02/17/2025 10:15 AM EDT Office Visit [facility] ADULT DENTAL [address] [place] [address] Kandy, Gabriela [address] [place] [address] 04/29/2025 10:00 AM EST Clinical Support [facility] MEDIC[facility] [address] [place] [address] Amanda Fernández, AALIYAH [address] [place] [address] documented as of this encounter Goals Goal Patient Goal Type Associated Problems Recent Progress Patient-Stated? 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
--- OUTSIDE RECORDS SUMMARY | 2025-02-09 16:58 | XMS_ITS | Clinical Summary ---
Author Organization [address] [facility] Address [address] [place] [address] Phone Care Team Providers Care Rubber Goods Tester Water Name Role Phone Pascual Darnell MD Primary Care Provi chio Allergies Active Allergy Reactions Criticality Noted Date Comments Clonazepam 09/02/2024 Medications No known medications Encounters Date Type Department Care Team Description 11/23/2024 Lab Requisition [facility] [address] [place] [address] Vero Mike MD Type 1 diabetes mellitus with hyperglycemia (CMS/HCC V24, CMS/[facility] V28); Old myocardial infarction; Essential (primary) hypertension; Vitamin D deficiency, unspecified 11/16/2024 Lab Requisition [facility] Lab [address] [place] [address] Vero Mike MD Altered mental [...] AM EST Office Visit Orth[facility] [place] 250 175 [facility] [address] [place] [address] Luciano Smith, DPM [address] [address] Health Maintenance Due Date Last Done Comments Colorectal Cancer Screening: Colonoscopy 1950 Diabetes: Annual Foot Exam 02/08/1960 Diabetes: Annual Retina Eye Exam 02/08/1960 Falls Risk Assessment 11/21/2023 Medicare Annual Wellness [...] with hyperglycemia ([facility] V24, [facility] V28) Old [...] LAB CHEMISTRY METHOD 11/24/2024 1:30 PM EDT [facility] Blood Venous blood specimen / Unknown Venipuncture / Unknown 11/24/2024 6:16 AM EDT 11/24/2024 10:32 AM EDT us Vero Mike MD LAB BLOOD ORDERABLES Final Resul t [facility] [address] [place] [address], [place] [phone] * (ABNORMAL) Complete blood count (11/24/2024 6:16 AM EDT) WBC 8.5 4.8 - 10.8 K/mcL LAB HEMETOLOGY METHOD 11/24/2024 11:00 AM EDT [facility] RBC 3.80 3.80 - 4.80 M/mcL LAB HEMETOLOGY METHOD 11/24/2024 11:00 AM EDT [facility] Hemoglobin 10.4(L) 11.5 - 16.0 g/dL LAB HEMETOLOGY METHOD 11/24/2024 11:00 AM [facility] Hematocrit 32.5(L) 35.0 - 47.0 % LAB HEMETOLOGY METHOD 11/24/2024 11:00 AM [facility] MCV 86.2 79.0 - 98.0 FL LAB HEMETOLOGY METHOD 11/24/2024 11:00 AM EDT [facility] MCH 27.6 27.0 - 32.0 pcg LAB HEMETOLOGY METHOD 11/24/2024 11:00 AM [facility] MCHC 32.0 32.0 - 37.0 g/dL LAB HEMETOLOGY METHOD 11/24/2024 11:00 AM [facility] RDW 13.1 11.0 - 15.0 % LAB HEMETOLOGY METHOD 11/24/2024 11:00 AM [facility] Platelets 345 130 - 400 K/mcL LAB HEMETOLOGY METHOD 11/24/2024 11:00 AM [facility] MPV 10.1 7.0 - 11.0 FL LAB HEMETOLOGY METHOD 11/24/2024 11:00 AM [facility] NRBC 0.0 <1.0 % LAB HEMETOLOGY METHOD 11/24/2024 11:00 AM [facility] NRBC Absolute 0.00 <0.10 K/mcL LAB HEMETOLOGY METHOD 11/24/2024 11:00 AM [facility] Blood Venous blood specimen / Unknown Venipuncture / Unknown 11/24/2024 6:16 AM EDT 11/24/2024 10:24 AM EDT us Vero Mike MD LAB BLOOD ORDERABLES Final Resul t [facility] [address] [place] [address], [place] [phone] * Thyroid stimulating hormone (11/24/2024 6:16 AM EDT) [facility] TSH 1.63 0.40 - 4.00 mcIU/mL LAB CHEMISTRY METHOD 11/24/2024 1:30 PM EDT [facility] Blood Venous blood specimen / Unknown Venipuncture / Unknown 11/24/2024 6:16 AM EDT 11/24/2024 10:32 AM EDT us Vero Mike MD LAB BLOOD ORDERABLES Final Resul t Performing Organization Address [facility]/ZIP Co de Phone Number [facility] [address] [place] [address], [place] [phone] * (ABNORMAL) Hemoglobin A1c (11/24/2024 6:16 AM EDT) [facility] Hemoglobin A1C 8.9(H) <6.5 % LAB CHEMISTRY METHOD 11/24/2024 12:29 PM EDT [facility] Mean Bld Glu Estim. 209 mg/dL LAB CHEMISTRY METHOD 11/24/2024 12:29 PM EDT [facility] Blood Venous blood specimen / Unknown Venipuncture / Unknown 11/24/2024 6:16 AM EDT 11/24/2024 10:24 AM EDT us Vero Mike MD LAB BLOOD ORDERABLES Final Resul t [facility] [address] [place] [address], [place] [phone] * (ABNORMAL) Vitamin B12 (11/24/2024 6:16 AM EDT) [facility] Vitamin B-12 979(H) 250 - 900 pcg/mL LAB CHEMISTRY METHOD 11/24/2024 11:58 AM EDT [facility] Blood Venous blood specimen / Unknown Venipuncture / Unknown 11/24/2024 6:16 AM EDT 11/24/2024 10:32 AM EDT us Vero Mike MD LAB BLOOD ORDERABLES Final Resul t [facility] [address] [place] [address], * (ABNORMAL) Comprehensive metabolic panel (11/24/2024 6:16 AM EDT) Sodium 138 133 - 145 mmol/L LAB CHEMISTRY METHOD 11/24/2024 11:35 AM [facility] Potassium 4.5 3.5 - 5.5 mmol/L LAB CHEMISTRY METHOD 11/24/2024 11:35 AM [facility] Chloride 104 96 - 110 mmol/L LAB CHEMISTRY METHOD 11/24/2024 11:35 AM [facility] CO2 28 21 - 32 mmol/L LAB CHEMISTRY METHOD 11/24/2024 11:35 AM [facility] Anion Gap 6 3 - 11 LAB CHEMISTRY METHOD 11/24/2024 11:35 AM [facility] Glucose 77 70 - 100 mg/dL LAB CHEMISTRY METHOD 11/24/2024 11:35 AM [facility] BUN 21 5 - 25 mg/dL LAB CHEMISTRY METHOD 11/24/2024 11:35 AM [facility] Creatinine 0.96 0.50 - 1.10 mg/dL LAB CHEMISTRY METHOD 11/24/2024 11:35 AM [facility] eGFR 62 >=60 mL/min/1. 73m2 LAB CHEMISTRY METHOD 11/24/2024 11:35 AM [facility] Comment:Calculation based on the Chronic Kidney Disease Epidemiology Collaboration (CKD-EPI) equation refit without adjustment for race. BUN/Creatinine Ratio 21.9 LAB CHEMISTRY METHOD 11/24/2024 11:35 AM [facility] Calcium 9.2 8.5 - 10.5 mg/dL LAB CHEMISTRY METHOD 11/24/2024 11:35 AM [facility] AST (SGOT) 18 10 - 42 unit/L LAB CHEMISTRY METHOD 11/24/2024 11:35 AM [facility] ALT (SGPT) 26 10 - 60 unit/L LAB CHEMISTRY METHOD 11/24/2024 11:35 AM [facility] Alkaline Phosphatase 99 42 - 121 unit/L LAB CHEMISTRY METHOD 11/24/2024 11:35 AM [facility] Total Protein 5.6(L) 6.0 - 8.0 g/dL LAB CHEMISTRY METHOD 11/24/2024 11:35 AM [facility] Albumin 3.3 3.2 - 5.0 g/dL LAB CHEMISTRY METHOD 11/24/2024 11:35 AM [facility] Total Bilirubin 0.3 0.0 - 1.4 mg/dL LAB CHEMISTRY METHOD 11/24/2024 11:35 AM [facility] Blood Venous blood specimen / Unknown Venipuncture / Unknown 11/24/2024 6:16 AM EDT 11/24/2024 10:32 AM EDT us Vero Mike MD LAB BLOOD ORDERABLES Final Resul t [facility] [address] [place] [address], * (ABNORMAL) Urinalysis with reflex microscopic (11/15/2024 12:20 PM EDT) Specific [place] Urine 1.012 1.003 - 1.030 LAB URINALYSIS - AUTOMATED METHOD 11/16/2024 9:53 AM [facility] pH, Urine 6.0 5.0 - 8.0 pH LAB URINALYSIS - AUTOMATED METHOD 11/16/2024 9:53 AM [facility] Leukocytes, Urine Small(A) Negative LAB URINALYSIS - AUTOMATED METHOD 11/16/2024 9:53 AM [facility] Nitrite, Urine Negative Negative LAB URINALYSIS - AUTOMATED METHOD 11/16/2024 9:53 AM [facility] Protein, Urine Negative <=Trace mg/dL LAB URINALYSIS - AUTOMATED METHOD 11/16/2024 9:53 AM [facility] Glucose, Urine 100(A) Negative mg/dL LAB URINALYSIS - AUTOMATED METHOD 11/16/2024 9:53 AM [facility] Ketones, Urine Negative Negative mg/dL LAB URINALYSIS - AUTOMATED METHOD 11/16/2024 9:53 AM [facility] Urobilinogen, Urine 0.2 0.2 - 1.0 mg/dL LAB URINALYSIS - AUTOMATED METHOD 11/16/2024 9:53 AM [facility] Bilirubin, Urine Negative Negative LAB URINALYSIS - AUTOMATED METHOD 11/16/2024 9:53 AM [facility] Blood, Urine Negative Negative LAB URINALYSIS - AUTOMATED METHOD 11/16/2024 9:53 AM [facility] RBC, Urine 1.7 0 - 4 /HPF LAB URINALYSIS - AUTOMATED METHOD 11/16/2024 9:53 AM [facility] WBC, Urine 4.4(H) 0 - 4 /HPF LAB URINALYSIS - AUTOMATED METHOD 11/16/2024 9:53 AM [facility] Squamous Epithelial, Urine 42 0 - 60 /LPF LAB URINALYSIS - AUTOMATED METHOD 11/16/2024 9:53 AM [facility] Bacteria, Urine Many(A) Negative [...] Final Resul t [facility] [address] [place] [address], [place] [phone] * (ABNORMAL) Culture urine (11/15/2024 12:20 PM [...] MICROBIOLOGY - GENERAL ORDER ELIU Final Result [facility] [address] [place] [address], from Last 3 Months Insurance [employer] MEDICARE Member Subscriber Plan / Payer (Ef fective 2015-Present) Name:Brandie WILLIS Relation to Subscriber:Self Name:Brandie Santana Payer ID:[id number] Group ID:[id number] Type:Not on file Address: [place] [address] [address] [place] [phone] Care Teams Rubber Goods Tester Water Relationship Specialty Start Date End Date Pascual Darnell MD [address] [place] [address] PCP - General Internal Medicine 06/18/24
--- OUTSIDE RECORDS SUMMARY | 2025-02-09 16:58 | XMS_ITS | Encounter Summary ---
Author Organization [employer] Address 75 [facility] 7t [place] [address] Care Team Providers Care Scanning Manager Name Role Phone Pascual Daly MD Primary Care Provide r Dasia Waters PharmD Unavailable [phone] Reason for Visit * Reason Onset Date Comments Med Refill 09/30/2024 Encounter Details Date Type Department Care Team ([facility] st Contact Info) Description 09/30/2024 Telephone [facility] MEDICINE [address] [place] [address] Pascual Daly MD [address] [place] [address] Med Refill Social History Tobacco Use Types [...] immediate release tablet To be sent to: [facility] documented in this encounter Plan of Treatment Upcoming Encounters Date Type Department Care Team ([facility] st Contact Info) Description 02/17/2025 10:15 AM EDT Office Visit [facility] ADULT DENTAL [address] [place] [address] Primo Gaitanaris [address] [place] [address] 04/29/2025 10:00 AM EST Clinical Support [facility] MEDICINE [address] [place] [address] Amanda Fernández RN [address] [place] [address] documented as of this encounter Goals Goal Patient Goal Type Associated Problems Recent Progress Patient-Stated? Author Blood Pressure < 140/90 Blood Pressure 162/77(10/22/2 025 11:05 AM EDT) No Fani Heck, KristiD documented as of this encounter Visit Diagnoses Not on filedocumented in this encounter Additional Health Concerns Assessment Noted Time PHQ-9 Depression Total Score: 9 01/29/20 24 11:00 AM EDT documented as of this encounter Care Teams Scanning Manager Relationship Specialty Start Date End Date Pascual Daly MD [address] [place] [address] PCP - General Internal Medicine 02/22/14 Dasia Waters PharmD [address] [place] [address] Pharmacist Internal Medicine 08/16/24 01/16/25 Iker MARCUSA 12/18/24 documented as of this encounter
--- OUTSIDE RECORDS SUMMARY | 2025-02-09 16:58 | XMS_ITS | Encounter Summary ---
Author Organization [employer] Address 75 [facility] 7t [place] [address] Care Team Providers Care Mortgage Operations Manager Name Role Phone Pascual Daly MD Primary Care Provide r Fani Heck PharmD Unavailable [phone] Dasia Waters PharmD Unavailable [phone] Reason for Visit * Reason Comments Med Refill Encounter Details Date Type Department Care Team ([facility] st Contact Info) Description 09/26/2023 Refill [facility] MEDICINE [address] [place] [address] Pascual Daly MD [address] [place] [address] Social History Tobacco Use Types Packs/Day Years [...] Description 02/17/2025 10:15 AM EDT Office Visit [facility] ADULT DENTAL [address] [place] [address] Kandy, Gabriela [address] [place] [address] 04/29/2025 10:00 AM EST Clinical Support [facility] MEDICINE [address] [place] [address] Amanda Fernández, AALIYAH [address] [place] [address] documented as of this encounter Goals Goal [...] as of this encounter Care Teams Mortgage Operations Manager Relationship Specialty Start Date End Date Pascual Daly MD [address] [place] [address] PCP - General Internal Medicine 02/22/14 Fani Heck, PharmD [address] [place] [address] Pharmacist Internal Medicine 12/16/22 08/15/24 Dasia Waters, Woody [address] [place] [address] Pharmacist Internal Medicine 08/16/24 01/16/25 [place] A 12/18/24 documented as of this encounter
--- OUTSIDE RECORDS SUMMARY | 2025-02-09 16:58 | XMS_ITS | Encounter Summary ---
Author Organization [employer] Address [address] [facility] 7t [place] [address] Care Team Providers Care Motor Brakeman Name Role Phone Pascual Daly MD Primary Care Provide r Fani Heck PharmD Unavailable + Dasia Waters PharmD Unavailable [phone] Reason for Visit * Reason Comments Med Refill Encounter Details Date Type Department Care Team ([facility] st Contact Info) Description 03/27/[address] [facility] CHC MED & PEDS [address] [place] [address] Titi Gray FNP Major depressive disorder with [...] [facility] ADULT DENTAL [address] [place] [address] Kandy, Gabriela [address] [place] [address] 04/29/2025 10:00 AM EST Clinical Support [facility] MEDICINE [address] [place] [address] Amanda Fernández RN 505 [place] [address] documented as of this encounter Goals Goal Patient Goal Type Associated Problems Recent Progress Patient-Stated? Author Blood Pressure < 140/90 Blood Pressure 162/77( 025 11:05 AM EDT) No Fani Heck, PharmD documented as of this encounter Visit Diagnoses Diagnosis Major depressive disorder with psychotic features (CMS/HCC) (HCC) documented in this encounter Additional Health Concerns Assessment Noted Time PHQ-9 Depression Total Score: 9 02/25/20 23 11:02 AM EST documented as of this encounter Care Teams Motor Brakeman Relationship Specialty Start Date End Date Pascual Daly MD [address] [place] [address] PCP - General Internal Medicine 02/22/14 Fani Heck PharmD [address] [place] [address] Pharmacist Internal Medicine 12/16/22 08/15/24 Dasia Waters, KristiD [address] [place] [address] Pharmacist Internal Medicine 08/16/24 01/16/25 Iker MARCUSA 12/18/24 documented as of this encounter
--- OUTSIDE RECORDS SUMMARY | 2025-02-09 16:58 | XMS_ITS | Encounter Summary ---
Author Organization [employer] Address 75 [facility] 7t [place] [address] Care Team Providers Care Shellfish Farming Supervisor Name Role Phone Pascual Daly MD Primary Care Provide r Fani Heck PharmD Unavailable [phone] Dasia Waters PharmD Unavailable [phone] Encounter Details Date Type Department Care Team (Late st Contact Info) Description 09/25/[address] [facility] MEDICINE [address] [place] [address] Pascual Daly MD [address] [place] [address] Social History Tobacco Use Types Packs/Day Years [...] Description 02/17/2025 10:15 AM EDT Office Visit [facility] ADULT DENTAL [address] [place] [address] Kandy, Gabriela [address] [place] [address] 04/29/2025 10:00 AM EST Clinical Support [facility] MEDICINE [address] [place] [address] Amanda Fernández, RN [address] [place] [address] documented as of this encounter Goals Goal Patient Goal Type Associated Problems Recent Progress Patient-Stated? Author Blood Pressure < 140/90 Blood Pressure 162/77( 025 11:05 AM EDT) No Fani Heck, PharmD documented as of this encounter Visit Diagnoses Diagnosis Type 2 diabetes mellitus without complication, with long-term current use of insulin (HCC) documented in this encounter Additional Health Concerns Assessment Noted Time PHQ-9 Depression Total Score: 11 024 10:24 AM EST documented as of this encounter Care Teams Shellfish Farming Supervisor Relationship Specialty Start Date End Date Pascual Daly MD [address] [place] [address] PCP - General Internal Medicine 02/22/14 Fani Heck, KristiD [address] [place] [address] Pharmacist Internal Medicine 12/16/22 08/15/24 Dasia Waters PharmD [address] [place] [address] Pharmacist Internal Medicine 08/16/24 01/16/25 [place] A 12/18/24 documented as of this encounter
--- OUTSIDE RECORDS SUMMARY | 2025-02-09 16:59 | XMS_ITS | Encounter Summary ---
Author Organization [employer] Address 75 [facility] 7t [place] [address] Care Team Providers Care Color Tester Name Role Phone Pascual Daly MD Primary Care Provide r Dasia Waters PharmD Unavailable [phone] Reason for Visit * Reason Onset Date Comments Med Refill 08/31/2024 Encounter Details Date Type Department Care Team ([facility] st Contact Info) Description 08/31/2024 Telephone [facility] MEDICINE [address] [place] [address] Pascual Daly MD [address] [place] [address] Med Refill Social History Tobacco Use Types [...] Miscellaneous Notes * Telephone Encounter - Hafsa Camahco - 08/31/2024 3:58 PM EDT TC from pt requesting medication refill. Medications needing refill : oxyCODONE (Roxicodone) 5 MG immediate release tablet To be sent to: [facility] documented in this encounter Plan of Treatment Upcoming Encounters Date Type Department Care Team ([facility] st Contact Info) Description 02/17/2025 10:15 AM EDT Office Visit [facility] ADULT DENTAL [address] [place] [address] Primo Gaitanaris [address] [place] [address] 04/29/2025 10:00 AM EST Clinical Support [facility] MEDICINE [address] [place] [address] Amanda Fernández RN [address] [place] [address] documented as of this encounter Goals Goal [...] as of this encounter Care Teams Color Tester Relationship Specialty Start Date End Date Pascual Daly MD [address] [place] [address] PCP - General Internal Medicine 02/22/14 Dasia Waters PharmD [address] [place] [address] Pharmacist Internal Medicine 08/16/24 01/16/25 Iker MARCUSA 12/18/24 documented as of this encounter
--- OUTSIDE RECORDS SUMMARY | 2025-02-09 16:59 | XMS_ITS | Encounter Summary ---
Author Organization [employer] Address 75 [facility] 7t [place] [address] Care Team Providers Care Industrial Machinery Mechanic Name Role Phone Pascual Daly MD Primary Care Provide r Fani Heck PharmD Unavailable [phone] Dasia Waters PharmD Unavailable [phone] Reason for Visit * Reason Comments Med Refill Encounter Details Date Type Department Care Team ([facility] st Contact Info) Description 01/14/2024 Refill [facility] MED & PEDS [address] [place] [address] Pascual Daly MD [address] [place], [place] [phone] Fibromyalgia Social History Tobacco Use Types Packs/Day [...] Description 02/17/2025 10:15 AM EDT Office Visit [facility] ADULT DENTAL [address] [place] [address] Kandy, Gabriela [address] [place] [address] 04/29/2025 10:00 AM EST Clinical Support [facility] MEDICINE [address] [place] [address] Amanda Fernández RN [address] [place] [address] documented as of this encounter Goals Goal [...] as of this encounter Care Teams Industrial Machinery Mechanic Relationship Specialty Start Date End Date Pascual Daly MD [address] [place] [address] PCP - General Internal Medicine 02/22/14 Fani Heck, PharmD [address] [place] [address] Pharmacist Internal Medicine 12/16/22 08/15/24 Dasia Waters, KristiD [address] [place] [address] Pharmacist Internal Medicine 08/16/24 01/16/25 [facility] documented as of this encounter
--- OUTSIDE RECORDS SUMMARY | 2025-02-09 16:59 | XMS_ITS | Encounter Summary ---
Author Organization [employer] Address 75 [facility] 7t [place] [address] Care Team Providers Care Paperboard Boxes Estimator Name Role Phone Pascual Daly MD Primary Care Provide r Fani Heck PharmD Unavailable [phone] Dasia Waters PharmD Unavailable [phone] Encounter Details Date Type Department Care Team (Late Contact Info) Description 08/29/2022 Abstract [facility] MEDICINE [address] [place] [address] Pascual Daly MD [address] [place] [address] Social History Tobacco Use Types Packs/Day Years [...] Department Care Team (Late Contact Info) Description 02/17/2025 10:15 AM EDT Office Visit [facility] ADULT DENTAL [address] [place] [address] Gabriela Gaitan [address] [place] [address] 04/29/2025 10:00 AM EST Clinical Support [facility] MEDICINE [address] [place] [address] Amanda Fernández RN [address] [place] [address] documented as of this encounter Goals Goal [...] documented as of this encounter Care Teams Paperboard Boxes Estimator Relationship Specialty Start Date End Date Pascual Daly MD [address] [place] [address] PCP - General Internal Medicine 02/22/14 Fani Heck, KristiD [address] [place] [address] Pharmacist Internal Medicine 12/16/22 08/15/24 Dasia Waters PharmD 230 [facility] [place] [address] Pharmacist Internal Medicine 08/16/24 01/16/25 Iker CORDERO 12/18/24 documented as of this encounter
--- OUTSIDE RECORDS SUMMARY | 2025-02-09 16:59 | XMS_ITS | Encounter Summary ---
Author Organization [employer] Address 75 [facility] 7t [place] [address] Care Team Providers Care Digital Sales Manager Name Role Phone Pascual Daly MD Primary Care Provide r Fani Heck PharmD Unavailable [phone] Dasia Waters PharmD Unavailable [phone] Reason for Visit * Reason Comments Med Refill Encounter Details Date Type Department Care Team (Late Contact Info) Description 10/02/2022 Refill [facility] MEDICINE [address] [place], [place] [phone] Titi Gray FNP Major depressive disorder with [...] Description 02/17/2025 10:15 AM EDT Office Visit [facility] ADULT DENTAL [address] [place], [place] [phone] Gabriela Gaitan [address] [place], [place] [phone] 04/29/2025 10:00 AM EST Clinical Support [facility] MEDICINE [address] [place] [address] Amanda Fernández, AALIYAH [address] [place] [address] documented as of this encounter Goals Goal [...] documented as of this encounter Care Teams Digital Sales Manager Relationship Specialty Start Date End Date Pascual Daly MD [address] [place] [address] PCP - General Internal Medicine 02/22/14 Fani Heck, PharmD [address] [place] [address] Pharmacist Internal Medicine 12/16/22 08/15/24 Dasia Waters, KristiD [address] [place] [address] Pharmacist Internal Medicine 08/16/24 01/16/25 [place] [facility] 12/18/24 documented as of this encounter
--- OUTSIDE RECORDS SUMMARY | 2025-02-09 16:59 | XMS_ITS | Encounter Summary ---
Author Organization [employer] Address 75 [facility] 7t [place] [address] Care Team Providers Care Germination Worker Name Role Phone Pascual Daly MD Primary Care Provide r Fani Heck PharmD Unavailable +-1 Dasia Waters PharmD Unavailable [phone] Reason for Visit * Reason Onset Date Comments Appointment Request 09/03/2022 Encounter Details Date Type Department Care Team ([facility] st Contact Info) Description 09/03/2022 Telephone [facility] MEDICINE [address] [place], [place] [phone] Pascual Daly MD 230 [place] [address] Appointment Request Social History Tobacco Use Types [...] Description 02/17/2025 10:15 AM EDT Office Visit [facility] ADULT DENTAL 230 [place] [address] Kandy, Gabriela 230 [place] [address] 04/29/2025 10:00 AM EST Clinical Support [facility] MEDICINE 230 [place] [address] Amanda Fernández RN [address] [place], [place] [phone] documented as of this encounter Goals Goal Patient Goal Type Associated Problems Recent Progress Patient-Stated? Author Blood Pressure < 140/90 Blood Pressure 162/77( 025 11:05 AM EDT) No Fani Heck PharmD documented as of this encounter Visit Diagnoses Not on filedocumented in this encounter Additional Health Concerns Assessment Noted Time PHQ-9 Depression Total Score: 8 07/05/19 23 9:26 AM EDT documented as of this encounter Care Teams Germination Worker Relationship Specialty Start Date End Date Pascual Daly MD [address] [place] [address] PCP - General Internal Medicine 02/22/14 Fani Heck PharmD [address] [place] [address] Pharmacist Internal Medicine 12/16/22 08/15/24 Dasia Waters PharmD [address] [place] [address] Pharmacist Internal Medicine 08/16/24 01/16/25 Iker CORDERO 12/18/24 documented as of this encounter
--- OUTSIDE RECORDS SUMMARY | 2025-02-09 16:59 | XMS_ITS | Encounter Summary ---
Author Organization [employer] Address 75 [facility] 7t [place] [address] Care Team Providers Care Co Founder And Director Name Role Phone Pascual Daly MD Primary Care Provide r Fani Heck PharmD Unavailable + Dasia Waters PharmD Unavailable [phone] Encounter Details Date Type Department Care Team (Late st Contact Info) Description 09/25/2023 Telephone [facility] MEDICINE 230 [place] [address] Pascual Daly MD 230 [place] [address] Social History Tobacco Use Types Packs/Day Years [...] is your housing situation today? I have saarhy pantoja 07/24/[address] you [...] Description 02/17/2025 10:15 AM EDT Office Visit [facility] ADULT DENTAL 230 [place] [address] Kandy, Gabriela 230 [place] [address] 04/29/2025 10:00 AM EST Clinical Support [facility] MEDICINE [address] [place] [address] Amanda Fernández, RN 505 [place] [address] documented as of this encounter Goals Goal [...] as of this encounter Care Teams Co Founder And Director Relationship Specialty Start Date End Date Pascual Daly MD [address] [place] [address] PCP - General Internal Medicine 02/22/14 Fani Heck, PharmD 230 [place] [address] Pharmacist Internal Medicine 12/16/22 08/15/24 Dasia Waters, KristiD 230 [place] [address] Pharmacist Internal Medicine 08/16/24 01/16/25 Iker MARCUSA 12/18/24 documented as of this encounter
--- OUTSIDE RECORDS SUMMARY | 2025-02-09 16:59 | XMS_ITS | Encounter Summary ---
Author Organization [employer] Address [address] [facility] [address] 7t [place] [address] Care Team Providers Care Cutting And Splicing Supervisor Name Role Phone Pascual Daly MD Primary Care Provide r Fani Heck PharmD Unavailable +2 Dasia Waters PharmD Unavailable [phone] Encounter Details Date Type Department Care Team (Late st Contact Info) Description 03/05/2024 Refill [facility] MEDICINE [address] [place] [address] Jefry Chun Benign hypertension; Type 2 diabetes mellitus without complication, with long-term current use of insulin ([facility]) [...] Description 02/17/2025 10:15 AM EDT Office Visit [facility] ADULT DENTAL [address] [place] [address] Kandy, Gabriela 230 [place] [address] 04/29/2025 10:00 AM EST Clinical Support [facility] MEDICINE [address] [place] [address] Amanda Fernández RN 505 [place] [address] documented as of this encounter Goals Goal [...] documented as of this encounter Care Teams Cutting And Splicing Supervisor Relationship Specialty Start Date End Date Pascual Daly MD [address] [place] [address] PCP - General Internal Medicine 02/22/14 Fani Heck, KristiD 230 [place] [address] Pharmacist Internal Medicine 12/16/22 08/15/24 Dasia Waters PharmD 230 [place] [address] Pharmacist Internal Medicine 08/16/24 01/16/25 [place] [facility] 12/18/24 documented as of this encounter
--- OUTSIDE RECORDS SUMMARY | 2025-02-09 16:59 | XMS_ITS | Encounter Summary ---
Author Organization [employer] Address 75 [facility] 7t [place] [address] Care Team Providers Care Stock Cutter Name Role Phone Pascual Daly MD Primary Care Provide r Fani Heck PharmD Unavailable +5 Dasia Waters PharmD Unavailable [phone] Reason for Visit * Reason Comments Med Refill Encounter Details Date Type Department Care Team (Late st Contact Info) Description 07/20/2023 Refill [facility] MEDICINE 230 [place] [address] Titi Gray FNP Major depressive disorder with [...] Description 02/17/2025 10:15 AM EDT Office Visit [facility] ADULT DENTAL 230 [place] [address] Kandy Gabriela 230 [place] [address] 04/29/2025 10:00 AM EST Clinical Support [facility] MEDICINE [address] [place] [address] Amanda Fernández RN 505 [place] [address] documented as of this encounter Goals Goal [...] documented as of this encounter Care Teams Stock Cutter Relationship Specialty Start Date End Date Pascual Daly MD [address] [place] [address] PCP - General Internal Medicine 02/22/14 Fani Heck, PharmD 230 [place] [address] Pharmacist Internal Medicine 12/16/22 08/15/24 Dasia Waters, KristiD 230 [place] [address] Pharmacist Internal Medicine 08/16/24 01/16/25 Iker MARCUSA 12/18/24 documented as of this encounter
--- OUTSIDE RECORDS SUMMARY | 2025-02-09 17:00 | XMS_ITS | Encounter Summary ---
Author Organization [employer] Address 75 [facility] 7t [place] [address] Care Team Providers Care Alteration Inspector Name Role Phone Pascual Daly MD Primary Care Provide r Fani Heck PharmD Unavailable +7 Dasia Waters PharmD Unavailable [phone] Reason for Visit * Reason Onset Date Comments Med Refill 01/13/2024 Encounter Details Date Type Department Care Team ([facility] st Contact Info) Description 01/13/2024 Telephone [facility] MEDICINE 230 [place], [place] [phone] Pascual Dlay MD 230 [place] [address] Med Refill Social History Tobacco Use Types [...] immediate release tablet To be sent to: [facility] - [place], [place] - [address] [place] [address] documented in this encounter Plan of Treatment Upcoming Encounters Date Type Department Care Team ([facility] st Contact Info) Description 02/17/2025 10:15 AM EDT Office Visit [facility] ADULT DENTAL 230 [place] [address] Gabriela Gaitan 230 [place] [address] 04/29/2025 10:00 AM EST Clinical Support [facility] MEDICINE 230 [place] [address] Amanda Fernández RN 505 [place] [address] documented as of this encounter Goals Goal Patient Goal Type Associated Problems Recent Progress Patient-Stated? Author Blood Pressure < 140/90 Blood Pressure 162/77( 025 11:05 AM EDT) No Heck, Jerril, PharmD documented as of this encounter Visit Diagnoses Not on filedocumented in this encounter Additional Health Concerns Assessment Noted Time PHQ-9 Depression Total Score: 11 024 10:24 AM EST documented as of this encounter Care Teams Alteration Inspector Relationship Specialty Start Date End Date Pascual Daly MD 230 [place] [address] PCP - General Internal Medicine 02/22/14 Fani Heck, PharmD 230 [place] [address] Pharmacist Internal Medicine 12/16/22 08/15/24 Dasia Waters PharmD 230 [place] [address] Pharmacist Internal Medicine 08/16/24 01/16/25 Iker VNA 12/18/24 documented as of this encounter
--- OUTSIDE RECORDS SUMMARY | 2025-02-09 17:00 | XMS_ITS | Encounter Summary ---
Author Organization [employer] Address 75 [facility] 7t [place] [address] Care Team Providers Care Automotive Refinisher Name Role Phone Pascual Daly MD Primary Care Provide r Fani Heck PharmD Unavailable +1 Dasia Waters PharmD Unavailable [phone] Reason for Visit * Reason Comments Med Refill Encounter Details Date Type Department Care Team (Late Contact Info) Description 08/08/2022 Refill [facility] 230 [place] [address] Momo Rizo MD [address] [place] [address] Mild intermittent asthma without complication Social History [...] 10:15 AM EDT Office Visit [facility] ADULT DENTAL 230 [place] [address] Gabriela Gaitan 230 [place] [address] 04/29/2025 10:00 AM EST Clinical Support [facility] MEDICINE 230 [place] [address] Amanda Fernández, RN [address] [place] [address] documented as of this encounter Goals Goal [...] documented as of this encounter Care Teams Automotive Refinisher Relationship Specialty Start Date End Date Pascual Daly MD [address] [place] [address] PCP - General Internal Medicine 02/22/14 Fani Heck, PharmD [address] [place] [address] Pharmacist Internal Medicine 12/16/22 08/15/24 Dasia Waters, KristiD 230 [place] [address] Pharmacist Internal Medicine 08/16/24 01/16/25 [place] [facility] 12/18/24 documented as of this encounter
--- OUTSIDE RECORDS SUMMARY | 2025-02-09 17:00 | XMS_ITS | Encounter Summary ---
Author Organization [email or web address] Address 75 [facility] 7t [place] [address] Care Team Providers Care Prop Drawer Name Role Phone Pascual Daly MD Primary Care Provide r Fani Heck PharmD Unavailable +7 Dasia Waters PharmD Unavailable [phone] Reason for Visit * Reason Comments Med Refill Encounter Details Date Type Department Care Team ([facility] Contact Info) Description 12/28/2022 Refill [facility] MEDICINE 230 [place] [address] Titi Gray FNP Major depressive disorder with [...] Upcoming Encounters Date Type Department Care Team ([facility] Contact Info) Description 02/17/2025 10:15 AM EDT Office Visit [facility] ADULT DENTAL 230 [place], [place] [phone] Gabriela Gaitan 230 [place] [address] 04/29/2025 10:00 AM EST Clinical Support [facility] MEDICINE 230 [facility] [address] Amanda Fernández, RN 505 [facility] [place] [address] documented as of this encounter Goals Goal [...] documented as of this encounter Care Teams Prop Drawer Relationship Specialty Start Date End Date Pascual Daly MD 230 [place] [address] PCP - General Internal Medicine 02/22/14 Fani Heck, PharmD 230 [place] [address] Pharmacist Internal Medicine 12/16/22 08/15/24 Dasia Waters, KristiD 230 [place] [address] Pharmacist Internal Medicine 08/16/24 01/16/25 [place] [facility] 12/18/24 documented as of this encounter
--- OUTSIDE RECORDS SUMMARY | 2025-02-09 17:00 | XMS_ITS | Encounter Summary ---
Author Organization [employer] Address 75 [facility] 7t [place] [address] Care Team Providers Care River Driver Name Role Phone Pascual Daly MD Primary Care Provide r Fani Heck PharmD Unavailable +8 Dasia Waters PharmD Unavailable [phone] Reason for Visit * Reason Onset Date Comments FYI 12/31/2023 Encounter Details Date Type Department Care Team ([facility] st Contact Info) Description 12/31/2023 Telephone [facility] MEDICINE 230 [place], [place] [phone] Pascual Daly MD 230 [place] [address] Social History Tobacco Use Types Packs/Day Years [...] any questions you can contact Franky at [phone]. documented in this encounter Plan of Treatment Upcoming Encounters Date Type Department Care Team ([facility] st Contact Info) Description 02/17/2025 10:15 AM EDT Office Visit [facility] ADULT DENTAL 230 [place] [address] Gabriela Gaitan 230 [place] [address] 04/29/2025 10:00 AM EST Clinical Support [facility] MEDICINE 230 [place] [address] Amanda Fernández RN 505 [place] [address] documented as of this encounter Goals Goal [...] documented as of this encounter Care Teams River Driver Relationship Specialty Start Date End Date Pascual Daly MD [address] [place] [address] PCP - General Internal Medicine 02/22/14 Fani Heck, PharmD [address] [place] [address] Pharmacist Internal Medicine 12/16/22 08/15/24 Dasia Waters PharmD [address] [place] [address] Pharmacist Internal Medicine 08/16/24 01/16/25 Iker CORDERO 12/18/24 documented as of this encounter
--- OUTSIDE RECORDS SUMMARY | 2025-02-09 17:00 | XMS_ITS | Encounter Summary ---
Author Organization [employer] Address 75 [facility] 7t [place] [address] Care Team Providers Care Hoop Maker Machine Name Role Phone Pascual Daly MD Primary Care Provide r Fani Heck PharmD Unavailable +2 Dasia Waters PharmD Unavailable [phone] Reason for Visit * Reason Comments Med Refill Encounter Details Date Type Department Care Team ([facility] st Contact Info) Description 07/16/[address] [facility] MEDICINE 230 [place] [address] Pascual Daly MD 230 [place] [address] Social History Tobacco Use Types Packs/Day Years [...] Visit [facility] ADULT DENTAL [address] [place] [address] Gabriela Gaitan 230 [place] [address] 04/29/2025 10:00 AM EST Clinical Support [facility] MEDICINE 230 [place] [address] Amanda Fernández, RN 505 [place] [address] documented as of this encounter Goals Goal [...] documented as of this encounter Care Teams Hoop Maker Machine Relationship Specialty Start Date End Date Pascual Daly MD [address] [place] [address] PCP - General Internal Medicine 02/22/14 Fani Heck, PharmD [address] [place] [address] Pharmacist Internal Medicine 12/16/22 08/15/24 Dasia Waters, KristiD [address] [place] [address] Pharmacist Internal Medicine 08/16/24 01/16/25 [facility] 12/18/24 documented as of this encounter
--- OUTSIDE RECORDS SUMMARY | 2025-02-09 17:00 | XMS_ITS | Encounter Summary ---
Author Organization [employer] Address 75 [facility] 7t [place] [address] Care Team Providers Care Elevator Runner Name Role Phone Pascual Daly MD Primary Care Provide r Fani Heck PharmD Unavailable +0 Dasia Waters PharmD Unavailable [phone] Reason for Visit * Reason Comments Med Refill Encounter Details Date Type Department Care Team (Late st Contact Info) Description 01/01/2024 Refill [facility] 230 [place] [address] Momo Rizo MD 230 [place] [address] Social History Tobacco Use Types Packs/Day Years [...] [facility] ADULT DENTAL 230 [place] [address] Kandy, Gabriela 230 [place] [address] 04/29/2025 10:00 AM EST Clinical Support [facility] MEDICINE [address] [place] [address] Amanda Fernández, RN 505 [place] [address] documented as of this encounter Goals Goal [...] as of this encounter Care Teams Elevator Runner Relationship Specialty Start Date End Date Pascual Daly MD [address] [place] [address] PCP - General Internal Medicine 02/22/14 Fani Heck, KristiD 230 [place] [address] Pharmacist Internal Medicine 12/16/22 08/15/24 Dasia Waters PharmD 230 [place] [address] Pharmacist Internal Medicine 08/16/24 01/16/25 [place] [facility] 12/18/24 documented as of this encounter
--- OUTSIDE RECORDS SUMMARY | 2025-02-09 17:00 | XMS_ITS | Encounter Summary ---
Author Organization [employer] Address 75 [facility] 7t [place] [address] Care Team Providers Care Woolen Tester Name Role Phone Pascual Daly MD Primary Care Provide r Fani Heck PharmD Unavailable +8 Dasia Waters PharmD Unavailable [phone] Reason for Visit * Reason Onset Date Comments Med Refill 10/11/2022 Encounter Details Date Type Department Care Team ([facility] st Contact Info) Description 10/11/2022 Telephone [facility] MEDICINE 230 [place], [place] [phone] Pascual Daly MD 230 [place], [place] [phone] Med Refill Social History Tobacco Use Types [...] [facility] ADULT DENTAL 230 [place] [address] Primo Gaitanaris 230 [place] [address] 04/29/2025 10:00 AM EST Clinical Support [facility] MEDICINE 230 [place] [address] Amanda Fernández, RN 505 [place], [place] [phone] documented as of this encounter Goals Goal [...] documented as of this encounter Care Teams Woolen Tester Relationship Specialty Start Date End Date Pascual Daly MD [address] [place] [address] PCP - General Internal Medicine 02/22/14 Fani Heck, PharmD [address] [place] [address] Pharmacist Internal Medicine 12/16/22 08/15/24 Dasia Waters, KristiD [address] [place] [address] Pharmacist Internal Medicine 08/16/24 01/16/25 [place] [facility] 12/18/24 documented as of this encounter
--- OUTSIDE RECORDS SUMMARY | 2025-02-09 17:00 | XMS_ITS | Encounter Summary ---
Author Organization [employer] Address 75 [facility] 7t [place] [address] Care Team Providers Care Director Of Retail Marketing Name Role Phone Pascual Daly MD Primary Care Provide r Fani Heck PharmD Unavailable +9 Dasia Waters PharmD Unavailable [phone] Reason for Visit * Reason Comments Med Refill Encounter Details Date Type Department Care Team (Late st Contact Info) Description 03/04/2023 Refill [facility] MEDICINE 230 [place] [address] Pascual Daly MD 230 [place] [address] Type 2 diabetes mellitus without complication, with long-term current use of insulin ([facility]) Social History Tobacco Use Types [...] Description 02/17/2025 10:15 AM EDT Office Visit [facility] ADULT DENTAL 230 [place] [address] Kandy, Gabriela 230 [place] [address] 04/29/2025 10:00 AM EST Clinical Support [facility] MEDICINE 230 [place] [address] Amanda Fernández RN 505 [place] [address] documented as of this encounter Goals Goal [...] of this encounter Care Teams Director Of Retail Marketing Relationship Specialty Start Date End Date Pascual Daly MD [address] [place] [address] PCP - General Internal Medicine 02/22/14 Fani Heck, KristiD [address] [place] [address] Pharmacist Internal Medicine 12/16/22 08/15/24 Dasia Waters PharmD [address] [place] [address] Pharmacist Internal Medicine 08/16/24 01/16/25 [place] A 12/18/24 documented as of this encounter
--- OUTSIDE RECORDS SUMMARY | 2025-02-09 17:00 | XMS_ITS | Encounter Summary ---
Author Organization [employer] Address 75 [facility] 7t [place] [address] Care Team Providers Care Disability Benefits Specialist Name Role Phone Pascual Daly MD Primary Care Provide r Fani Heck PharmD Unavailable +5 Dasia Waters PharmD Unavailable [phone] Encounter Details Date Type Department Care Team (Late st Contact Info) Description 07/01/2022 Abstract [facility] [address] [place] [address] Pascual Daly MD [address] [place] [address] Social History Tobacco Use Types Packs/Day Years [...] Description 02/17/2025 10:15 AM EDT Office Visit [facility] ADULT DENTAL 230 [place] [address] Kandy, Gabriela 230 [place] [address] 04/29/2025 10:00 AM EST Clinical Support [facility] MEDICINE 230 [place] [address] Amanda Fernández RN 505 [place] [address] documented as of this encounter Goals Goal [...] documented as of this encounter Care Teams Disability Benefits Specialist Relationship Specialty Start Date End Date Pascual Daly MD [address] [place] [address] PCP - General Internal Medicine 02/22/14 Fani Heck, PharmD [address] [place] [address] Pharmacist Internal Medicine 12/16/22 08/15/24 Dasia Waters, PharmD [address] [place] [address] Pharmacist Internal Medicine 08/16/24 01/16/25 [place] [facility] 12/18/24 documented as of this encounter
--- OUTSIDE RECORDS SUMMARY | 2025-02-09 17:01 | XMS_ITS | Encounter Summary ---
Author Organization [employer] Address 75 [facility] 7t [place] [address] Care Team Providers Care Heel Trimmer Name Role Phone Pascual Daly MD Primary Care Provide r Fani Heck PharmD Unavailable +5 Dasia Waters PharmD Unavailable [phone] Reason for Visit * Reason Comments Med Refill Encounter Details Date Type Department Care Team (Late st Contact Info) Description 10/21/2023 Refill [facility] MEDICINE 230 [place] [address] Titi Gray FNP Major depressive disorder with [...] [facility] AD[facility] 230 [place] [address] Kandy Gabriela 230 [place] [address] 04/29/2025 10:00 AM EST Clinical Support [facility] MEDICINE [address] [place] [address] Amanda Fernández RN 505 [place] [address] documented as of this encounter Goals Goal [...] documented as of this encounter Care Teams Heel Trimmer Relationship Specialty Start Date End Date Pascual Daly MD [address] [place] [address] PCP - General Internal Medicine 02/22/14 Fani Heck, PharmD 230 [place] [address] Pharmacist Internal Medicine 12/16/22 08/15/24 Dasia Waters, KristiD 230 [place] [address] Pharmacist Internal Medicine 08/16/24 01/16/25 Iker MARCUSA 12/18/24 documented as of this encounter
--- OUTSIDE RECORDS SUMMARY | 2025-02-09 17:01 | XMS_ITS | Encounter Summary ---
Author Organization [employer] Address 75 [facility] 7t [place] [address] Care Team Providers Care Drywall Hanger Helper Name Role Phone Pascual Daly MD Primary Care Provide r Fani Heck PharmD Unavailable +6 Dasia Waters PharmD Unavailable [phone] Reason for Visit * Reason Comments Med Refill Encounter Details Date Type Department Care Team (Late st Contact Info) Description 10/21/[address] [facility] MEDICINE 230 [place] [address] Titi Gray FNP Major depressive disorder with [...] 02/17/2025 10:15 AM EDT Office Visit [facility] ADULT DENTAL [address] [place] [address] Kandy Gabriela 230 [place] [address] 04/29/2025 10:00 AM EST Clinical Support [facility] MEDICINE [address] [place] [address] Amanda Fernández RN 505 [place] [address] documented as of this encounter Goals Goal [...] documented as of this encounter Care Teams Drywall Hanger Helper Relationship Specialty Start Date End Date Pascual Daly MD [address] [place] [address] PCP - General Internal Medicine 02/22/14 Fani Heck, PharmD 230 [place] [address] Pharmacist Internal Medicine 12/16/22 08/15/24 Dasia Waters, KristiD 230 [place] [address] Pharmacist Internal Medicine 08/16/24 01/16/25 Iker MARCUSA 12/18/24 documented as of this encounter
--- OUTSIDE RECORDS SUMMARY | 2025-02-09 17:01 | XMS_ITS | Encounter Summary ---
Author Organization [employer] Address [address] [facility] [address] [facility] [address] [place] [address] Care Team Providers Care Supervisor Word Processing Name Role Phone Pacsual Daly MD Primary Care Provide r Fani Heck PharmD Unavailable [phone] Dasia Waters PharmD Unavailable [phone] Reason for Visit * Reason Onset Date Comments FYI 12/11/2023 Durable Medical Equipment 12/11/2023 Encounter Details Date Type Department Care Team (Late st Contact Info) Description 12/11/2023 Telephone [facility] MED[facility]INE [address] [place], [place] [phone] Pascual Daly MD [address], [place] [phone] FYI ; Durable Medical Equipment Social History [...] two DME scripts to be sent to [facility] which: [facility] bed Please fax over to [phone] documented in this encounter Plan of Treatment Upcoming Encounters Date Type Department Care Team ([facility] st Contact Info) Description 02/17/2025 10:15 AM EDT Office Visit [facility] ADULT DENTAL [address] [place] [address] Primo Gaitanaris [address] [place] [address] 04/29/2025 10:00 AM EST Clinical Support [facility] MED[facility]INE [address] [place] [address] Amanda Fernández, AALIYAH [address] [place] [address] documented as of this encounter Goals Goal [...] as of this encounter Care Teams Supervisor Word Processing Relationship Specialty Start Date End Date Pascual Daly MD [address] [place] [address] PCP - General Internal Medicine 02/22/14 Fani Heck, PharmD [address] [place] [address] Pharmacist Internal Medicine 12/16/22 08/15/24 Dasia Waters PharmD [address] [place] [address] Pharmacist Internal Medicine 08/16/24 01/16/25 Iker MARCUSA 12/18/24 documented as of this encounter
--- OUTSIDE RECORDS SUMMARY | 2025-02-09 17:01 | XMS_ITS | Encounter Summary ---
Author Organization [employer] Address [address] [facility] [address] [place] [address] Care Team Providers Care Hydraulic Plumber Name Role Phone Pascual Daly MD Primary Care Provide r Encounter Details Date Type Department Care Team (Latest Contact Info) Description 02/09/2025 Travel Social History Tobacco Use Types Packs/Day [...] Description 02/17/2025 10:15 AM EDT Office Visit [facility] ADULT DENTAL [address] [place] [address] Kandy, Gabriela [address] [place] [address] 04/29/2025 10:00 AM EST Clinical Support [facility] [address] [place] [address] Amanda Fernández RN [address] [place] [address] documented as of this encounter Goals Goal [...] documented as of this encounter Care Teams Hydraulic Plumber Relationship Specialty Start Date End Date Pascual Daly MD [address] [place] [address] PCP - General Internal Medicine 02/22/14 Iker MARCUSA 12/18/24 documented as of this encounter
--- OUTSIDE RECORDS SUMMARY | 2025-02-09 17:01 | XMS_ITS | Clinical Summary ---
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 Shake gently. Before first use, prime pump. After use, clean tip and replace cap. 16 g 023 Active carvedilol (Coreg) 6.25 MG tablet TAKE [...] IF PATIENT DOES NOT RESPOND. 023 Active ARIPiprazole (Abilify) 20 MG tablet [...] ons:Major depressive disorder with psychotic features (CMS/HCC) (HCC) Take 3 capsules (6 mg) by mouth at bedtime. 270 capsule 1 024 Active melatonin 3 MG tablet Take 1 tablet (3 mg) by mouth if needed at bedtime for sleep. 30 tablet 2 024 Active clonazePAM (KlonoPIN) 0.5 MG tabletIndicatio ns:Major depressive disorder with psychotic features (CMS/HCC) (HCC) Take 1 tablet (0.5 mg) by mouth if needed in the morning, at noon, and at bedtime for anxiety. 90 tablet 024 Active Continuous Glucose Sensor (Dexcom G7 Sensor) [facility] [place] Active Actemra ACTPen 162 MG/0.9ML solution auto-injector Inject as directed (likely every other week; verify dose with patient or pharmacy) Active albuterol (Ventolin HFA) 108 (90 Base) MCG/ACT inhalerIndicati ons:Mild intermittent asthma without complication INHALE 2 PUFFS BY MOUTH EVERY 4 TO 6 HOURS NEEDED 18 g 1 Active Alcohol Swabs (Alcohol Pads) 70 % padsIndications :Type 2 diabetes mellitus without complication, with long-term current use of insulin (HCC) Use up to 4 times a day for insulin injections 100 each 11 Active Blood Pressure Monitoring (Adult Blood Pressure Cuff Lg) kit Use daily to check blood pressure 1 kit 025 Active atorvastatin (Lipitor) 20 MG tabletIndicatio ns:Type 2 diabetes mellitus without complication, with long-term current use of insulin (HCC) TAKE 1 TABLET BY MOUTH EVERY MORNING 90 tablet 1 025 Active amLODIPine (Norvasc) 10 MG tabletIndicatio ns:Benign hypertension TAKE 1 TABLET BY MOUTH EVERY EVENING 90 tablet 1 025 Active levothyroxine (Synthroid, Levoxyl) 125 MCG tablet Take 1 tablet by mouth in the morning. Active Linzess 145 MCG capsule Take 1 capsule by mouth before breakfast. Active naloxone (Narcan) 4 mg/0.1 mL nasal spray 4 mg if needed for opioid reversal. Active simethicone (Mylicon) 125 MG chewable tablet Chew 1 tablet. 2 to 4 times daily as needed for gas Active losartan (Cozaar) 100 MG tabletIndicatio ns:Benign hypertension TAKE 1 TABLET BY MOUTH EVERY MORNING 90 tablet 1 025 Active gabapentin (Neurontin) 100 MG capsuleIndicati ons:Pain Take 1 capsule (100 mg) by mouth 2 times daily. 180 capsule 1 025 Active cyclobenzaprine (Flexeril) 10 MG tablet Take 10 mg by mouth if needed in the morning, at noon, and at bedtime for muscle spasms. 025 Active methocarbamol (Robaxin) 500 MG tablet Active predniSONE (Deltasone) 5 MG tablet TAKE 4 TABLETS BY MOUTH ONCE DAILY FOR 7 DAYS, THEN 3 TABLETS ONCE DAILY FOR 7 DAYS, 2 TABLETS ONCE DAILY FOR 7 DAYS, THEN 1 TABLET ONCE DAILY FOR 7 DAYS Active venlafaxine XR (Effexor XR) 150 MG 24 hr capsule Active Blood Glucose Monitoring Suppl ([employer] Lite) w/Device kit 1 each if needed in the morning, at noon, and at bedtime (Sensor failure). 1 kit Active chlorhexidine (Peridex) 0.12 % solution Swish 15 mL morning and night for 1 minute. Spit, do not swallow. Do not eat or drink for 30 minutes following use. 473 mL Active gabapentin (Neurontin) 100 MG capsuleIndicati ons:Pain TAKE 1 CAPSULE BY MOUTH TWICE DAILY IN THE MORNING AND AT BEDTIME 180 capsule 1 2024 Discontinued(R eorder (will not trigger notification to Pharmacy)) venlafaxine XR (Effexor XR) 37.5 MG 24 hr capsule Take 1 capsule by mouth in the morning. 2024 Discontinued(M ed list cleanup (will not trigger notification to Pharmacy)) venlafaxine XR (Effexor XR) 75 MG 24 hr capsule Take 1 capsule by mouth in the morning. 2024 Discontinued(M ed list cleanup (will not trigger notification to Pharmacy)) chlorhexidine (Peridex) 0.12 % solution Swish 15 mL morning and night for 1 minute. Spit, do not swallow. Do not eat or drink for 30 minutes following use. 473 mL 2024 Discontinued oxyCODONE (Roxicodone) 5 MG immediate release tabletIndicatio ns:Long-term current use of opiate analgesic Take 1 tablet (5 mg) by mouth every 12 (twelve) hours if needed for severe pain for up to 28 days. 56 tablet 025 2024 nystatin (Mycostatin) 053061 UNIT/ML suspension Take 5 mL (500,000 Units) by mouth 4 times daily for 10 days. Swish it around in your mouth for as long as possible, then gargle and swallow. 200 mL 025 2024 Active Problems Problem Noted Date Diagnosed Date Dental caries 01/26/2025 Abdominal pain 01/14/2025 Acute hyperglycemia 01/14/2025 EMERSON (acute kidney injury) 01/14/2025 Asthma 01/14/2025 Atypical chest pain 01/14/2025 Cholecystitis 01/14/2025 Chronic gastritis 01/14/2025 Chronic idiopathic constipation 01/14/2025 Clavicular fracture 01/14/2025 Right clavicle fracture 01/14/2025 Contracture of joint of finger of left hand 12/21 Dislocation closed, finger 01/14/2025 Dyslipidemia 01/14/2025 Elevated liver function tests 01/14/2025 Overview (01/14/2025): BASELINE LABS 06/22/21 Hgb A1c (Clinic) 9.6 H GGT 82 H TSH 21.04 H Alpha Fetoprotein 3.9 SUSAN Screen POSITIVE A SUSAN Titer 1:640 H SUSAN Pattern Nuclear, Speckled A Anti-Mitochondrial Ab NEGATIVE Anti-Smooth Muscle Ab <20 WBC 8.7 Hgb 11.9 L Hct 36.9 L MCV 85.2 MCH 27.5 Estimated GFR 50 Hgb A1c (Clinic) Ferritin 422 H Total Bilirubin 0.3 GGT AST 28 D ALT 30 Alkaline Phosphatase 129 H D Hepatitis A IgM Ab Nonreactive Hep Bs Antigen Negative Hep Bs Antibody NONREACTIVE Hep B Core Total Ab Nonreactive Hepatitis C Ab (EIA) Nonreactive HIV 1&2 Ab/P24 Ag 4thGn Nonreactive 09/07/21 10:28 PT 10.5 INR 0.9 CURRENT LABS The patient returned to primary care service to monitor liver function tests and return to us if they become more than 2 times baseline 03/29/22 10:45 Estimated GFR 52 Total Bilirubin 0.2 AST 24 ALT 25 Alkaline Phosphatase 106 ULTRASOUND OF THE ABDOMEN 03/20/22 FINDINGS: PANCREAS: The pancreas is obscured by gas. LIVER: Normal. The liver is normal in size. The liver contour is normal. Parenchymal echogenicity is normal. No focal hepatic lesion. There is no intrahepatic biliary duct dilatation seen. GALLBLADDER: Surgically absent. COMMON BILE DUCT: Normal in caliber measuring 0.4 cm in diameter. RIGHT KIDNEY: Normal. No hydronephrosis. No renal calculi or focal parenchymal lesions. The kidney measures 8.7 cm in maximum dimension. FREE FLUID: None. US/US abdomen limited IMPRESSION: Unremarkable limited abdomen ultrasound. No major change compared to previous study 09/05/2021 Previously seen right pleural effusion is not visualized on the present exam. Elevated parathyroid hormone 01/14/2025 Fracture of nasal bone 01/14/2025 Fracture of wrist 01/14/2025 Head injury 01/14/2025 Heart palpitations 01/14/2025 Hepatitis C antibody positive in blood Diabetes 01/14/2025 Hypoglycemia due to insulin 01/14/2025 Overview (01/14/2025): h/o profound hypoglycemia requiring hospitalization Hypoglycemia 01/14/2025 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 Intestinal malabsorption following gastrectomy 0 01/14/2025 Intra-abdominal abscess (CMS/HCC) 01/14/2025 Laceration of nose 01/14/2025 Leukocytosis 01/14/2025 Nontraumatic subluxation of extensor tendon at metacarpophalangeal joint of left hand 01/14/2025 NSTEMI (non-ST elevated myocardial infarction) 0 01/14/2025 Obesity (BMI 30-39.9) 01/14/2025 Osteoarthritis of right knee 01/14/2025 Pleural effusion, bilateral 01/14/2025 S/P laparoscopic cholecystectomy 01/14/2025 Sagittal band rupture at metacarpophalangeal jodi nt 01/14/2025 Shortness of breath 01/14/2025 Joint swelling 01/14/2025 Swelling of knee joint, right 01/14/2025 Trigger finger, left ring finger 01/14/2025 Urinary incontinence 01/04/2025 Assessment & Plan (01/04/2025 9:32 AM EDT): Pt with c/o this Plan: U/A Urology referral Aphthous ulcer 09/16/2024 Coronary artery disease invo lving augustine coronary artery of augustine heart without angina pectoris 08/12/2024 Assessment & [...] Flu and Covid: Negative Plan: supportive measures Age-related osteoporosis wit hout current pathological fracture [...] 8 hrs PRN Will continue for now Asthenia 09/17/2023 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 She will continue to follow with them. Has no particular complaints. Hair loss 08/27/2022 Assessment & Plan (08/27/2022 10:19 AM EDT): followed by a automobile service writer. 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 She says it falls out when she brushes her hair Pt evaluated by Dr Guevara Rheumatoid arthritis involvi ng multiple sites with positive rheumatoid factor (CMS/HCC) 08/27/2022 Assessment & Plan (01/04/2025 9:23 AM EDT): Under the care of Rheumatology on Actem 162, last note 10/2023 Assessment & Plan (01/29/2024 11:21 AM EDT): Under the care of Rheumatology on Actem 162, last seen 10/2023 Assessment & Plan [...] Major depressive disorder with psychotic feature s (CMS/HCC) 03/26/2022 Assessment & Plan (01/04/2025 9:33 AM EDT): Titi Gray retired She has a new Psychiatrist and a psychotherapist in [place] She tells me she is taking Effexor, [...] (08/27/2022 10:22 AM EDT): Following with Titi Grya Assessment & Plan (07/04/2022 10:34 AM EDT): [...] with cardiology in August. - Follow-up in [facility] in November. Repeat BMP and A1c [...] from 7.8 Eye exam done on: 12/2023 [facility] Dx with new [...] from 8.9 Eye exam done on: 12/2023 [facility] Dx with new [...] f/u She is under the care of Prescriptionist Dr Spargue, last seen 12/31/2023 On a regimen of: [...] f/u She is under the care of Prescriptionist Dr Sprague, last seen 10/16/2023 On a [...] f/u She is under the care of Prescriptionist Dr Sprague, has a follow up with [...] f/u She is under the care of Prescriptionist Dr Sprague, has a follow up at [...] to Dr. Manjinder Gonsales at [facility] as her medical insurance recommended this referral. [...] LDL-C. Melquiades SS et al. TEN. 2013;310(19): 9113-4577 (http://education.[email or web address]/faq/[email or web address]) Chol/HDLC Ratio <5.0 (calc) 4.2 3.7 2.5 [...] GI fro consideration of out pt colonoscopy. 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 Resolved Problems Problem Noted Date Diagnosed Date Resolved Date Acute viral syndrome 01/14/2025 025 COVID-19 01/14/2025 02/09/2025 Hepatitis C 01/14/2025 02/09/2025 High risk medication use 01/14/2025 Laceration of mouth, internal 01/14/2025 02/09/2025 Leg pain, right 01/14/2025 02/09/2025 Overweight (BMI 25.0-29.9) 01/14/2025 1 Respiratory syncytial virus (RSV) 01/14/2025 02/09/2025 Screening for viral disease 01/14/2025 02/09/2025 Influenza 01/29/2024 05/04/2024 Assessment & Plan (01/29/2024 4:07 PM EDT): Patient with c/o mild sore throat Rapid Flu test positive Influenza A Plan: Tamiflu 30 mg BID x 5 days given her Cr clearance Hospital discharge follow-up 10/21/2023 02/09/2025 Assessment & Plan (01/04/2025 9:38 AM EDT): Patient admitted to [facility] from (11/08/24 - 11/10/24) S/P fall and head injury at the visit with hematology. Eventually admitted for head injury and wrist injury. Patient's 4th finger was dislocated, lip, nose, and forehead were lacerated. Physical Therapy recommended rehabilitation. Eventually discharged to [facility] for not meeting medical necessity for hospitalization. Instructed to follow up with orthopedics team. She was at [facility] from 11/10/24 - 12/17/24 Discharged home with medications and chcf services. Instructed to follow up with PCP with us in 7 to 10 days. Today she feels fine, no complaints, has a follow up with orthopedics tomorrow Assessment & Plan (10/21/2023 10:15 AM EDT): Patient admitted to [facility] 09/09/23 after she presented to [place] emergency room due to left-sided chest discomfort [...] pulmonary toilet, no surgical intervention was planned. Concussion with no loss of consciousness 02/13/2018 08/27/2022 Anxiety state 09/24/2011 04/25/2022 Depressive disorder 04/21/1959 04/25/19 23 Encounters Date Type Department Care Team Description 02/09/2025 11:00 AM EDT Office Visit [facility] [address] [place] [address] Raven Polanco MD Suprapubic pain (Primary Dx); Bladder pain; Dietary counseling; Exercise counseling; Class 1 obesity with serious comorbidity and body mass index (BMI) of 30.0 to 30.9 in adult, unspecified obesity type; Paralytic ileus (CMS/HCC) ([facility]) 02/09/2025 Results Follow-Up [address] [address] Raven Polanco MD XR KUB and Upright 2 Views 02/09/2025 Travel 02/08/2025 Refill [facility] [address] [place] [address] Amanda Fernández, AALIYAH Long-term current use of opiate analgesic 02/08/[address] [address] Pascual Daly MD Med Refill 01/26/2025 9:00 AM EDT Office Visit [facility] [address] [place] [address] Christian Winchester DDS Dental caries (Primary Dx); Aphthous ulcer 01/20/2025 10:30 AM EDT Clinical Support [facility] [address] [place] [address] Amanda Fernández, AALIYAH Long-term current use of opiate analgesic (Primary Dx) 01/20/2025 Travel 01/17/[address] [address] Dasia Waters PharmD 01/17/2025 Travel 01/14/2025 10:30 AM EDT Office Visit [facility] [address] [place] [address] Ammy Owen DDS Aphthous ulcer (Primary Dx) 01/14/[address] [address] Pascual Daly MD Pain 01/11/[address] [address] Pascual Daly MD Long-term current use of opiate analgesic (Primary Dx) 01/07/2025 Orders Only GENERIC EXTERNAL DATA DEPARTMENT Provider, Generic External Data 01/04/2025 9:30 AM EDT Office Visit [address] [address] Pascual Daly MD Hospital discharge follow-up (Primary Dx); Type 2 diabetes mellitus with right eye affected by mild nonproliferative retinopathy without macular edema, with long-term current use of insulin ([facility]); Rheumatoid arthritis involving multiple sites with positive rheumatoid factor ([facility]); Major depressive disorder with psychotic features ([facility]); Mixed stress and urge urinary incontinence; Sore throat 01/04/2025 Travel 01/03/[address] [address] Pascual Daly MD chart prep 12/31/[address] [address] Katie Harper, PharmD 12/22/[address] [address] Pascual Daly MD Durable Medical Equipment 12/15/2024 Patient Outreach [facility] [address] [place] [address] Pascual Daly MD Transition Of Care (Tcm) (HDF scheduled. ) 11/21/[address] [address] Pascual Daly MD Pain; Benign hypertension 11/16/[address] [address] Pascual Daly MD 11/15/[address] [address] Pascual Daly MD Chart Prep from Last 3 Months Immunizations Immunization Administration Dates Next Due Influenza High-dose Quadriva lent Preservative Free 01/20/2022,01/23/2021,12/22/2019 Influenza Quadrivalent Adjuvanted 01/15/2023 Influenza injectable quadriv alent IIV4 with preservative 02/01/2016,01/05/2015 Influenza injectable quadriv alent preservative free 04/06/2019,02/18/2018 Influenza, High Dose Seasona l, Preservative Free 01/17/2025,02/19/2024,01/21/2017 Influenza, IIV3, injectable 03/11/2023,1 05/12/2021,02/19/2021,02/01,12/24/2017,03/22/2014,12/31/2010 Influenza, Split (incl. delfina fied surface antigen) 02/27/2015,01/07/2013,05/04/2012 MMR 11/21/1997 Moderna Covid-19 Vaccine 12+ 09/04/2021,07/19/19 21,06/20/2020 Moderna Covid-19 Vaccine 6+ Bivalent 04/18/2022 Pfizer Covid-19 Vaccine 12+ 01/17/2025, Pneumococcal Conjugate PCV 13 04/25/2015 Pneumococcal Conjugate [...] 20 02/09/2025 11:05 AM EDT Oxygen Saturation 98% 01/04/2025 9:28 AM EDT Inhaled Oxygen Concentration - - Weight 67.8 kg (149 lb 6.4 oz) 02/09/2025 11:05 AM EDT Height 149.9 cm (4' 11 ) 02/09/2025 11:05 AM EDT Body Mass Index 30.18 02/09/2025 11:05 AM EDT Plan of Treatment Upcoming Encounters Date Type Department Care Team (Late st Contact Info) Description 02/17/2025 10:15 AM EDT Office Visit [facility] [address] [place] [address] KandyGabriela [address] [place] [address] 04/29/2025 10:00 AM EST Clinical Support [facility] [address] [place] [address] Amanda Fernández, RN [address] [place] [address] Health Maintenance Due Date Last Done Comments CT Colonography 1950 Dental X-Ray: Bitewings 1950 FIT DNA/Cologuard 1950 FIT 1950 FOBT 1950 Sigmoidoscopy 1950 Diabetes: Foot Exam 02/08/1960 Eye Exam 02/08/1960 Diabetes: Urine Protein Screening 07/01/2024 07/02/2023, 01/10/2023, 07/17/2021, Additional history exists Dental Oral Exam 02/05/2025 08/05/2024 Dental Prophylaxis 02/05/2025 08/05/2024 Diabetes: Hemoglobin A1C 04/08/2025 025, 11/24/2024, 08/12/2024, Additional history exists Alcohol/Substance Use Screening 05/04/2025 05/04/2024 Depression Monitoring 07/04/2025 01/04/2025, 025 COVID-19 Vaccine ( season) 2025 01/17/2025, 04/18/2022, 09/04/2021, Additional history exists SDOH Screening 08/12/2025 08/12/2024 Lipid Panel 08/16/2025 08/16/2024, 10/19, 07/02/2023, Additional history exists Tobacco Screening 02/09/2026 02/09/2025 Dental X-Ray: Full Mouth 08/07/2027 08/05/2024 Colonoscopy 03/20/2028 03/20/2018 Colorectal Cancer Screening 03/20/2028 DTaP/Tdap/Td Vaccines (3 - Td or Tdap) 10/14/2034 10/14/2024, 09/24/2013, 02/22/2003, Additional history exists Zoster Vaccines Completed 03/17/2019, 12/21, 09/08/2014 Pneumococcal Vaccine: 50+ Years Completed 06/12/2023, 04/25/2015, 04/25/2015, Additional history exists RSV Patients and Patients Aged 60 years or older Completed 06/12/2023 Hepatitis C Screening Completed 10/28/2024 , 10/28/2024, 01/15/2023, Additional history exists Influenza Vaccine Completed 01/17/2025, , 03/11/2023, Additional history exists HIB Vaccines Aged Out [...] 025 11:05 AM EDT) No Fani Heck, Woody Procedures Procedure Name Priority Date/Time Associated Diagnosis Comments XR KUB AND UPRIGHT 2 VIEWS Routine 02/09/2025 12:44 PM EDT Bladder pain Suprapubic pain POCT URINALYSIS DIPSTICK Routine 02/09/2025 11:17 AM EDT Bladder pain CASE PRESENTATION, DETAILED AND EXTENSIVE TREATMENT PLANNING Routine 01/26/2025 9:00 AM EDT 5 B(V) RESIN-BASED COMPOSITE - 1 SURF, POSTERIOR Routine 01/26/2025 9:00 AM EDT POCT HEATHER-14 URINE DRUG SCREEN Routine 01/20/2025 10:20 AM EDT Long-term current use of opiate analgesic CASE PRESENTATION, DETAILED AND EXTENSIVE TREATMENT PLANNING Routine 01/14/2025 10:30 AM EDT Aphthous ulcer PALLIATIVE (EMERGENCY) TREATMENT OF DENTAL PAIN - MINOR PROCEDURE Routine 01/14/2025 10:30 AM EDT Aphthous ulcer GLUCOSE, WHOLE BLOOD Routine 01/07/2025 10:30 AM EDT HEMOGLOBIN A1C Routine 01/07/2025 BASIC METABOLIC PANEL Routine 01/07/2025 POCT INFLUENZA A Routine 01/04/2025 10:0 8 [...] edema, with long-term current use of insulin ([facility]) HEPATITIS PANEL, GENERAL Routine 10/28/2024 10:04 AM EDT LIPID PANEL, STANDARD Routine 08/16/2024 9:24 AM EDT Mixed hyperlipidemia Full PROPHYLAXIS - ADULT Routine 08/05/2024 10:00 AM EDT PANORAMIC RADIOGRAPHIC IMAGE Routine 08/05/2024 10:00 AM EDT PERIODIC ORAL EVALUATION - ESTABLISHED PATIENT Routine 08/05/2024 10:00 AM EDT ALBUMIN, RANDOM URINE W/CREATININE Routine 07/02/2023 10:06 AM EDT HM COLONOSCOPY Routine 03/20/2018 from Last 3 Months or Most Recently Relevant to Health Maintenance Results * XR KUB and Upright 2 Views (02/09/2025 12:44 PM EDT) Anatomical Region Laterality Modality Radiographic Zoe ging 02/09/2025 12:4 4 PM EDT Narrative 02/09/2025 1:26 PM EDT [address] [address] XRay Report Signed Patient: Brandie Santana MR#: [id number] : 1950 Acct:[id number] Age/Sex: 75 / F ADM Date: 02/09/25 Loc: HO.HHCX Attending Dr: Raven Polanco MD Ordering Physician: Raven Polanco Date of Service: 02/09/25 Procedure(s): XR KUB Accession Number(s): [id number] cc: Raven Polanco Reason for Exam: abdominal [...] Hi Nava MD 02/09/2025 01:23 PM EDT Dictated By: Hi Nava MD Signed By: <Electronically signed by Hi Nava MD in OV> 02/09/25 1323 DD/ 1244 TD/TT: 02/09/25 1310 Fiber Optic Assembler: Procedure Note Donotuseinterpreter, Image - 02/09/[address] [place] [address] XRay Report Signed Patient: Dino Santana#: [id number] : 1950Acct:[id number] Age/Sex: 75 / FADM Date: 02/09/25 Loc: HO.HHCX Attending Dr: Raven Polanco MD Ordering Physician: Raven Polanco Date of Service: 02/09/25 Procedure(s): XR KUB Accession Number(s): [id number] cc: Raven Polanco Reason for Exam: abdominal [...] Hi Nava MD 02/09/2025 01:23 PM EDT Dictated By: Hi Nava MD Signed By: <Electronically signed by Hi Nava MD in OV> 02/09/25 1323 DD/ 1244 TD/TT: 02/09/25 1310 Fiber Optic Assembler: Raven Polanco MD IMG XR PROCEDURES Final [...] Media Lot # [id number] Lot# Expiration Date 63,026 Urine (Urine, Random) 02/09/2025 11:17 AM EDT us Raven Polanco MD POINT OF CARE TEST ENTER/EDIT ORDERABLES Final Result * (ABNORMAL) POCT HEATHER-14 Urine Drug Screen (01/20/2025 10:20 AM EDT) [facility] THC Negative Negative Cocaine Screen, Urine Negative Negative Opiate Screen, Urine Negative Negative Methamphetamine Screen Urine Negative Negative Amphetamine Screen, Urine Negative Negative Benzodiazepines Screen, Urine Negative Negative Barbiturate Screen, Urine Negative Negative Methadone Screen, Urine Negative Negative Buprenophine Screen, Urine Negative Negative TCA, Urine Negative Negative MDMA Urine Negative Negative ng/mL Oxycodone Screen, Urine Positive Negative Phencyclidine (PCP), Urine Negative Negative Propoxyphene, Urine Negative Negative Fentanyl, Urine Negative Negative Urine Urine specimen obtained by clean catch procedure / Unknown 01/20/2025 10:20 AM EDT Narrative Amanda Fernández RN - 01/20/2025 10:20 AM EDT . Internal Pass Control Lot# [id number] Exp: 02-18-26 us Pascual Terry MD POINT OF CARE TEST EN TER/EDIT ORDERABLES Final Result * Glucose, Whole Blood (01/07/2025 10:30 AM EDT) [facility] Glucose, Whole Blood 101 60 - 115 mg/dL [facility] Comment:METER #: [id number] Testing performed in the Endocrinology Department [address] , [address], [facility]. 01/07/2025 10:3 0 AM EDT 01/07/2025 10:36 AM EDT Generic External Data Provider LAB BLOOD ORDERAB LES Final Result [facility] [address] [place] [phone] * (ABNORMAL) Hemoglobin A1c (01/07/2025) [facility] Hemoglobin A1C 8.3(A) 4.0 - 5.7 % Blood Venous blood specimen / Unknown Result [facility] Historical Provider MD LAB BLOOD ORDERABLES Carla l Result * Basic Metabolic Panel (01/07/2025) Pathologist [facility] Glucose 101 mg/dL Blood Venous blood specimen / Unknown Result [facility] Provider LAB BLOOD ORDERABLES Carla l Result * POCT Rapid Influenza A OSOM (01/04/2025 10:08 AM EDT) [facility] Rapid Influenza A Ag Negative Negative, Indeterminate QC Media Lot # [id number] Lot# Expiration Date Swab Nasopharyngeal structure / Unknown 01/04/2025 10:08 AM EDT Result [facility] Pascual Terry MD POINT OF CARE TEST EN TER/EDIT ORDERABLES Final Result * POCT Rapid Influenza B BALL ID NOW (01/04/2025 9:54 AM EDT) [facility] Influenza B Negative Negative, Indeterminate [facility] QC Media Lot # [id number] [facility] Lot# Expiration Date [facility] Swab 01/04/2025 9:54 AM EDT Result [facility] Pascual Terry MD POINT OF CARE TEST EN TER/EDIT ORDERABLES Final Result [facility] [address] [place] [phone] * POCT Rapid Covid-19 BALL ID NOW (01/04/2025 9:54 AM EDT) [facility] Coronavirus Antigen PCR Negative Negative, Indeterminate, None Detected, Invalid, Specimen unsatisfactory for evaluation, Weakly Positive, 2+ QC Media Lot # [id number] Lot# Expiration Date Swab 01/04/2025 9:54 AM EDT Pascual Terry MD POINT OF CARE TEST EN TER/EDIT ORDERABLES Final Result * POCT Rapid Strep A BALL ID NOW (01/04/2025 9:51 AM EDT) [facility] Rapid Strep A Screen Negative Negative, None Detected QC Media Lot # [id number] Lot# Expiration Date , Swab 01/04/2025 9:51 AM EDT Pascual Terry MD POINT OF CARE TEST EN TER/EDIT ORDERABLES Final Result * POCT Rapid Covid-19 BinaxNOW (01/04/2025 9:51 AM EDT) [facility] Rapid COVID Ag Negative QC Media Lot # [id number] Lot# Expiration Date 766, Swab 01/04/2025 9:51 AM EDT Pascual Terry MD POINT OF CARE TEST EN TER/EDIT ORDERABLES Final Result * POCT Glucose (01/04/2025 9:29 AM EDT) [facility] Glucose Blood, POC 182 60 - 200 mg/dL QC Media Lot # [id number] Lot# Expiration Date 880, Blood Capillary blood specimen / Unknown 01/04/2025 9:29 AM EDT Pascual Terry MD POINT OF CARE TEST EN TER/EDIT ORDERABLES Final Result * Hepatitis Panel, General (10/28/2024 10:04 AM EDT) [facility] Hepatitis A IgM Nonreactive Nonreactive [facility] ORDERAB LES Final Result Performing Organization Address City/[facility]/ZIP Co de Phone Number [facility] [address] [place] [phone] * Lipid Panel, Standard (08/16/2024 9:24 [...] 190 mg/dL HDL Cholesterol 65 >40 mg/dL [facility] Comment:Desirable HDL: great er than 40 mg/dL Note: This HDL assay may give artificially low results in patients with liver disease. Blood Venous blood specimen / Unknown 08/16/2024 9:24 AM EDT 08/16/2024 10:57 AM EDT us Pascual Terry MD LAB BLOOD ORDERABLES Final Result [facility] [address] [place] [phone] [phone] * (ABNORMAL) Albumin, Random Urine W/Creatinine (07/02/2023 10:06 AM EDT) Creatinine, Urine 163.81 mg/dL [facility] Microalbumin Urine 59.0 mg/L H [facility] Microalbum Creatinine Ratio Ur 36.0(H) <30 ug/mg cr [facility] Comment:Albumin/Creatinine R atio Reference Ranges: Normal: < 30 ug/mg creatinine Microalbuminuria: 30 - 300 ug/mg creatinineClinical Albuminuria: > 300 ug/mg creatinine 07/02/2023 10:0 6 AM EDT 07/02/2023 11:41 AM EDT Generic External Data Provider LAB URINE ORDERAB LES Final Result Performing Organization Address [facility] Co de Phone Number [facility] [address] [place] [phone] * Colonoscopy (03/20/2018) Colonoscopy Normal Normal 03/20/2018 Narrative Sondra Rowe - 03/20/2018 9:09 AM EST Recommended 10 year follow up Historical Provider HEALTH MAINTENANCE Edited Result - Final from Last 3 Months or Most Recently Relevant to Health Maintenance Insurance [employer] (O D-SNP) DENTAL - [facility] Care Teams Glazing Machine Operator Relationship Specialty Start Date End Date Pascual Daly MD [address] [place] [address] PCP - General Internal Medicine 02/22/14 [place] A 12/18/24
--- OUTSIDE RECORDS SUMMARY | 2025-02-09 17:01 | XMS_ITS | Encounter Summary ---
Author Organization [employer] Address [address] [facility] 7t [place] [address] Care Team Providers Care Microbiology Soil Scientist Name Role Phone Pascual Daly MD Primary Care Provide r Reason for Visit * Reason Onset Date Comments Med Refill 02/08/2025 Encounter Details Date Type Department Care Team ([facility] st Contact Info) Description 02/08/2025 Telephone [facility] MED[facility]INE [address] [place] [address] Pascual Daly MD [address] [place] [address] Med Refill Social History Tobacco Use Types [...] encounter Miscellaneous Notes * Telephone Encounter - Sylvia England - 02/08/2025 3:43 PM EDT TC from pt requesting medication refill. Medications needing refill : - oxyCODONE (Roxicodone) 5 MG immediate release tablet To be sent to: [facility] - [place], [place] - [address] [place] [address] documented in this encounter Plan of Treatment Upcoming Encounters Date Type Department Care Team ([facility] st Contact Info) Description 02/17/2025 10:15 AM EDT Office Visit [facility] ADULT DENTAL [address] [place] [address] Gabriela Gaitan [address] [place] [address] 04/29/2025 10:00 AM EST Clinical Support [facility] MED[facility]INE [address] [place] [address] Amanda Fernández, AALIYAH [address] [place] [address] documented as of this encounter Goals Goal [...] documented as of this encounter Care Teams Microbiology Soil Scientist Relationship Specialty Start Date End Date Pascual Daly MD [address] [place] [address] PCP - General Internal Medicine 02/22/14 Iker CORDERO 12/18/24 documented as of this encounter
--- OUTSIDE RECORDS SUMMARY | 2025-02-09 17:01 | XMS_ITS | Encounter Summary ---
Author Organization [employer] Address 75 [facility] 7t [place] [address] Care Team Providers Care Hospice Social Worker Name Role Phone Pascual Daly MD Primary Care Provide r Reason for Visit * Reason Onset Date Comments Results 02/09/2025 Encounter Details Date Type Department Care Team ([facility] Contact Info) Description 02/09/2025 Results Follow-Up [facility] MEDICINE [address] [place] [address] Raven Polanco MD [address] [place] [address] XR KUB and Upright 2 Views Social History Tobacco Use Types Packs/Day Years [...] encounter Miscellaneous Notes * Telephone Encounter - Coty Francis RN - 02/09/2025 1:34 PM EDT TC placed to pt to advise her to go to ED for further evaluation related to KUB results, pt states her CUSTOMER SERVICER is gone and she can't get to the hospital patient I then told the patient I would initiate an EMS call for ambulance transportation to hospital pt is in agreement. 911 contacted and dispatchedto pt home address which she verified over the phone. Also contact [facility] for an expect. Will forward to green team nurses for status check later this week ----- Message from Raven Polanco MD sent at 02/09/2025 1:31 PM EDT ----- Team! Please call ER and give report on this patient with paralytic ileus, and call patient and tell her to go to ER, her bowels in the middle are paralyzed and she needs more imaging and possible hospital admission! ----- Message ----- From: Dilan Deleon Results In Sent: 02/09/2025 1:26 PM EDT To: Raven Polanco MD * Result Encounter Note - Raven Polanco MD - 02/09/2025 1:31 PM EDT Team! Please call ER and give report on this patient with paralytic ileus, and call patient and tell her to go to ER, her bowels in the middle are paralyzed and she needs more imaging and possible hospital admission! documented in this encounter Plan of Treatment Upcoming Encounters Date Type Department Care Team (Late st Contact Info) Description 02/17/2025 10:15 AM EDT Office Visit [facility] ADULT DENTAL [address] [place] [address] Kandy, Gabriela [address] [place] [address] 04/29/2025 10:00 AM EST Clinical Support [facility] [address] [place] [address] Amanda Fernández RN [address] [place] [address] documented as of this encounter Goals Goal [...] documented as of this encounter Care Teams Hospice Social Worker Relationship Specialty Start Date End Date Pascual Daly MD [address] [place] [address] PCP - General Internal Medicine 02/22/14 Iker CORDERO 12/18/24 documented as of this encounter
--- OUTSIDE RECORDS SUMMARY | 2025-02-09 17:01 | XMS_ITS | Encounter Summary ---
Author Organization [employer] Address 75 [facility] 7t [place] [address] Care Team Providers Care Assistant Maintenance Manager Name Role Phone Pascual Daly MD Primary Care Provide r Reason for Visit * Reason Onset Date Comments Med Refill 02/08/2025 Encounter Details Date Type Department Care Team ([facility] st Contact Info) Description 02/08/2025 Refill [facility] [address] [place] [address] Amanda Fernández, RN [address] [place] [address] Long-term current use of opiate analgesic Social [...] Description 02/17/2025 10:15 AM EDT Office Visit [facility] ADULT DENTAL [address] [place] [address] Kandy, Gabriela [address] [place] [address] 04/29/2025 10:00 AM EST Clinical Support [facility] MEDICINE [address] [place] [phone] Amanda Fernández, AALIYAH [address] [place] [address] documented as of this encounter Goals Goal Patient Goal Type Associated Problems Recent Progress Patient-Stated? Author Blood Pressure < 140/90 Blood Pressure 162/77( 025 11:05 AM EDT) No Fani Heck, KristiD documented as of this encounter Visit Diagnoses Diagnosis Long-term current use of opiate analgesic Encounter for long-term (current) use of other medications documented in this encounter Additional Health Concerns Assessment Noted Time PHQ-9 Depression Total Score: 12 025 9:30 AM EDT documented as of this encounter Care Teams Assistant Maintenance Manager Relationship Specialty Start Date End Date Pascual Daly MD [address] [place] [phone] PCP - General Internal Medicine 02/22/14 Iker CORDERO 12/18/24 documented as of this encounter
--- OUTSIDE RECORDS SUMMARY | 2025-02-09 17:01 | XMS_ITS | Encounter Summary ---
Author Organization [employer] Address 75 [facility] 7t [place] [address] Care Team Providers Care Patient Care Manager Name Role Phone Pascual Daly MD Primary Care Provide r Fani Heck PharmD Unavailable [phone] Dasia Waters PharmD Unavailable [phone] Encounter Details Date Type Department Care Team (Late Contact Info) Description 05/29/2022 Abstract [facility] MEDICINE [address] [place] [address] Pascual Daly MD 230 [place] [address] Social History Tobacco Use Types Packs/Day Years [...] Description 02/17/2025 10:15 AM EDT Office Visit [facility] ADULT DENTAL [address] [place] [address] Gabriela Gaitan [address] [place] [address] 04/29/2025 10:00 AM EST Clinical Support [facility] MEDICINE [address] [place] [address] Amanda Fernández RN [address] [place] [address] documented as of this encounter Goals Goal [...] as of this encounter Care Teams Patient Care Manager Relationship Specialty Start Date End Date [place] [address] PCP - General Internal Medicine 02/22/14 Fani Heck, [place] [address] Pharmacist Internal Medicine 12/16/22 08/15/24 Dasia Waters, [place] [address] Pharmacist Internal Medicine 08/16/24 01/16/25 Iker CORDERO 12/18/24 documented as of this encounter
--- OUTSIDE RECORDS SUMMARY | 2025-02-09 17:02 | XMS_ITS | Encounter Summary ---
Author Organization [employer] Address 75 [facility] 7t [place] [address] Care Team Providers Care Surgical Services Asst Name Role Phone Pascual Daly MD Primary Care Provide r Fani Heck PharmD Unavailable [phone] Dasia Waters PharmD Unavailable [phone] Encounter Details Date Type Department Care Team (Late st Contact Info) Description 03/11/2022 Abstract [facility] MEDICINE [address] [place] [phone] Pascual Daly MD [address] [place] [address] Social History Tobacco Use Types Packs/Day Years [...] 10:15 AM EDT Office Visit [facility] ADULT DENTAL [address] [place] [phone] Gabriela Gaitan [address] [place] [address] 04/29/2025 10:00 AM EST Clinical Support [facility] MED[facility]INE [address] [place] [address] Amanda Fernández, RN [address] [place] [address] documented as of this encounter Visit Diagnoses Not on filedocumented in this encounter Care Teams Surgical Services Asst Relationship Specialty Start Date End Date Pascual Daly MD [address] [place] [address] PCP - General Internal Medicine 02/22/14 Fani Heck, KristiD [address] [place] [address] Pharmacist Internal Medicine 12/16/22 08/15/24 Dasia Waters PharmD [address] [place] [address] Pharmacist Internal Medicine 08/16/24 01/16/25 Iker MARCUSA 12/18/24 documented as of this encounter
--- OUTSIDE RECORDS SUMMARY | 2025-02-09 17:02 | XMS_ITS | Encounter Summary ---
Author Organization [employer] Address 75 [facility] 7t [place] [address] Care Team Providers Care Drywall Applicator Name Role Phone Pascual Daly MD Primary Care Provide r Fani Heck PharmD Unavailable [phone] Dasia Waters PharmD Unavailable [phone] Encounter Details Date Type Department Care Team (Late st Contact Info) Description 03/11/2022 Abstract [facility] MEDICINE [address] [place] [phone] Fani Heck, PharmD [address] [place] [address] Social History Tobacco Use Types Packs/Day Years [...] [facility] [address] [place], [place] [phone] KandyGabriela [address] [place] [address] 04/29/2025 10:00 AM EST Clinical Support [facility] MEDICINE [address] [place] [address] Amanda Fernández RN [address] [place] [address] documented as of this encounter Visit Diagnoses Not on filedocumented in this encounter Care Teams Drywall Applicator Relationship Specialty Start Date End Date Pascual Daly MD [address] [place] [address] PCP - General Internal Medicine 02/22/14 Fani Heck, KristiD [address] [place] [address] Pharmacist Internal Medicine 12/16/22 08/15/24 Dasia Waters, KristiD [address] [place] [phone] Pharmacist Internal Medicine 08/16/24 01/16/25 Iker MARCUSA 12/18/24 documented as of this encounter
--- OUTSIDE RECORDS SUMMARY | 2025-02-09 17:02 | XMS_ITS | Encounter Summary ---
Author Organization [employer] Address 75 [facility] 7t h Floor [address] Care Team Providers Care Electric Organ Assembler Name Role Phone Pascual Daly MD Primary Care Provide r Fani Heck PharmD Unavailable [phone] Dasia Waters PharmD Unavailable [phone] Encounter Details Date Type Department Care Team (Late st Contact Info) Description 03/13/2022 Abstract [facility] MEDICINE [address] [place] [phone] Provider, MD Bill Social History Tobacco Use [...] Description 02/17/2025 10:15 AM EDT Office Visit [facility] ADULT DENTAL [address] [place] [address] Gabriela Gaitan [address] [place] [address] 04/29/2025 10:00 AM EST Clinical Support [facility] MEDICINE [address] [place] [address] Amanda Fernández RN [address] [place] [address] documented as of this encounter Visit Diagnoses Not on filedocumented in this encounter Care Teams Electric Organ Assembler Relationship Specialty Start Date End Date Pascual Daly MD [address] [place] [address] PCP - General Internal Medicine 02/22/14 Fani Heck PharmD [address] [place] [address] Pharmacist Internal Medicine 12/16/22 08/15/24 Dasia Waters PharmD [address] [place] [address] Pharmacist Internal Medicine 08/16/24 01/16/25 Iker MARCUSA 12/18/24 documented as of this encounter
--- OUTSIDE RECORDS SUMMARY | 2025-02-09 17:02 | XMS_ITS | Encounter Summary ---
Author Organization [facility] Address [address] [place] [address] Care Team Providers Care Precision Instrument Maker And Repairer Name Role Phone Pascual Darnell MD Primary Care Provi chio Encounter Details Date Type Department Care Team (Late st Contact Info) Description 11/16/[address] [facility] - Main Lab [address] [facility] [employer] [place] [phone] Vero Mike MD [address] [place] [address] Altered mental status, unspecified Social History Tobacco [...] AM EST Office Visit [facility] [place] [address] [phone] Luciano Smith DPM 175 [facility] 250 [place] [phone] documented as of this encounter Procedures Procedure [...] reflex microscopic (11/15/2024 12:20 PM EDT) Specific [place] Urine 1.012 1.003 - 1.030 LAB URINALYSIS - AUTOMATED METHOD 11/16/2024 9:53 AM [facility] pH, Urine 6.0 5.0 - 8.0 pH LAB URINALYSIS - AUTOMATED METHOD 11/16/2024 9:53 AM [facility] Leukocytes, Urine Small(A) Negative LAB URINALYSIS - AUTOMATED METHOD 11/16/2024 9:53 AM [facility] Nitrite, Urine Negative Negative LAB URINALYSIS - AUTOMATED METHOD 11/16/2024 9:53 AM [facility] Protein, Urine Negative <=Trace mg/dL LAB URINALYSIS - AUTOMATED METHOD 11/16/2024 9:53 AM [facility] Glucose, Urine 100(A) Negative mg/dL LAB URINALYSIS - AUTOMATED METHOD 11/16/2024 9:53 AM [facility] Ketones, Urine Negative Negative mg/dL LAB URINALYSIS - AUTOMATED METHOD 11/16/2024 9:53 AM [facility] Urobilinogen, Urine 0.2 0.2 - 1.0 mg/dL LAB URINALYSIS - AUTOMATED METHOD 11/16/2024 9:53 AM [facility] Bilirubin, Urine Negative Negative LAB URINALYSIS - AUTOMATED METHOD 11/16/2024 9:53 AM [facility] Blood, Urine Negative Negative LAB URINALYSIS - AUTOMATED METHOD 11/16/2024 9:53 AM [facility] RBC, Urine 1.7 0 - 4 /HPF LAB URINALYSIS - AUTOMATED METHOD 11/16/2024 9:53 AM EDT [facility] WBC, Urine 4.4(H) 0 - 4 /HPF LAB URINALYSIS - AUTOMATED METHOD 11/16/2024 9:53 AM EDT [facility] Squamous Epithelial, Urine 42 0 - 60 /LPF LAB URINALYSIS - AUTOMATED METHOD 11/16/2024 9:53 AM EDT [facility] Bacteria, Urine Many(A) Negative /HPF LAB URINALYSIS - AUTOMATED METHOD 11/16/2024 9:53 AM EDT [facility] Hyaline Casts, Urine 1.2 0 - 3 /LPF LAB URINALYSIS - AUTOMATED METHOD 11/16/2024 9:53 AM EDT [facility] Urine Urine specimen obtained by clean catch procedure / Unknown Non-blood Collection / Unknown 11/15/2024 12:20 PM EDT 11/16/2024 9:33 AM EDT us Vero Mike MD LAB URINE ORDERABLES Final Resul t [facility] [address] [place] [address], * (ABNORMAL) Culture urine (11/15/2024 12:20 PM EDT) Culture, Urine >=100,000 CFU/mL Klebsiella pneumoniae ssp pneumoniae(A) ANA 11/18/2024 10:57 AM EDT [facility] Comment: This is an [...] GENERAL ORDER ELIU Final Result [facility] [address] [place] [address], documented in this encounter Visit Diagnoses Diagnosis Altered mental status, unspecified documented in this encounter Care Teams Precision Instrument Maker And Repairer Relationship Specialty Start Date End Date Pascual Darnell MD [address] [place] [address] PCP - General Internal Medicine 06/18/24 documented as of this encounter
--- OUTSIDE RECORDS SUMMARY | 2025-02-09 17:02 | XMS_ITS | Encounter Summary ---
Author Organization [employer] Address 75 [facility] 7t [place] [address] Care Team Providers Care Mixing Roll Operator Name Role Phone Pascual Daly MD Primary Care Provide r Fani Heck PharmD Unavailable [phone] Dasia Waters PharmD Unavailable [phone] Reason for Visit * Reason Onset Date Comments Med Refill 12/15/2023 Encounter Details Date Type Department Care Team ([facility] st Contact Info) Description 12/15/2023 Telephone [facility] MEDICINE [address] [place], [place] [phone] Pascual Daly MD [address] [place] [address] Med Refill Social History Tobacco Use Types [...] sent to: [facility] - [place], [place] - [address] [place] [address] documented in this encounter Plan of Treatment Upcoming Encounters Date Type Department Care Team ([facility] st Contact Info) Description 02/17/2025 10:15 AM EDT Office Visit [facility] ADULT DENTAL [address] [place] [address] Gabriela Gaitan [address] [place] [address] 04/29/2025 10:00 AM EST Clinical Support [facility] MEDICINE [address] [place] [address] Amanda Fernández RN [address] [place] [address] documented as of this encounter Goals Goal [...] documented as of this encounter Care Teams Mixing Roll Operator Relationship Specialty Start Date End Date Pascual Daly MD [address] [place] [address] PCP - General Internal Medicine 02/22/14 Fani Heck, PharmD [address] [place] [address] Pharmacist Internal Medicine 12/16/22 08/15/24 Dasia Waters PharmD [address] [place] [address] Pharmacist Internal Medicine 08/16/24 01/16/25 Iker VNA 12/18/24 documented as of this encounter
--- OUTSIDE RECORDS SUMMARY | 2025-02-09 17:02 | XMS_ITS | Encounter Summary ---
Author Organization [employer] Address 75 [facility] 7t [place] [address] Care Team Providers Care Wool Hat Flanger Name Role Phone Pascual Daly MD Primary Care Provide r Fani Heck PharmD Unavailable [phone] Dasia Waters PharmD Unavailable [phone] Reason for Visit * Reason Onset Date Comments FYI 11/06/2023 Encounter Details Date Type Department Care Team ([facility] st Contact Info) Description 11/06/2023 Telephone [facility] MEDICINE [address] [place], [place] [phone] Pascual Daly MD [address] [place] [address] Social History Tobacco Use Types Packs/Day Years [...] - 11/06/2023 4:39 PM EDT Tc from [facility] Iker CORDERO PT informing pt has started services For PT 11/06/23 documented in this encounter Plan of Treatment Upcoming Encounters Date Type Department Care Team (Late st Contact Info) Description 02/17/2025 10:15 AM EDT Office Visit [facility] ADULT DENTAL [address] [place] [address] Primo Gaitanaris [address] [place] [address] 04/29/2025 10:00 AM EST Clinical Support [facility] MEDICINE [address] [place] [address] Amanda Fernández RN 505 [place] [address] documented as of this encounter Goals Goal [...] documented as of this encounter Care Teams Wool Hat Flanger Relationship Specialty Start Date End Date Pascual Daly MD [address] [place] [address] PCP - General Internal Medicine 02/22/14 Fani Heck PharmD [address] [place] [address] Pharmacist Internal Medicine 12/16/22 08/15/24 Dasia Waters PharmD [address] [place] [address] Pharmacist Internal Medicine 08/16/24 01/16/25 Iker MARCUSA 12/18/24 documented as of this encounter
--- OUTSIDE RECORDS SUMMARY | 2025-02-09 17:02 | XMS_ITS | Encounter Summary ---
Author Organization [employer] Address [address] [facility] [address] [place] [address] Care Team Providers Care Election Supervisor Name Role Phone Pascual Daly MD Primary Care Provide r Fani Heck PharmD Unavailable + Dasia Waters PharmD Unavailable [phone] Encounter Details Date Type Department Care Team (Latest Contact Info) Description 05/26/2019 Abstract [facility] CONVERSIONS Dental, Provider, DDS Social History [...] Description 02/17/2025 10:15 AM EDT Office Visit [facility] ADULT DENTAL [address] [place] [address] KandyPrimoGabriela [address] [place] [address] 04/29/2025 10:00 AM EST Clinical Support [facility] MEDICINE [address] [place] [address] Amanda Fernández RN [address] [place] [address] documented as of this encounter Visit Diagnoses Not on filedocumented in this encounter Care Teams Election Supervisor Relationship Specialty Start Date End Date Pascual Daly MD [address] [place] [address] PCP - General Internal Medicine 02/22/14 Fani Heck, KristiD [address] [place] [address] Pharmacist Internal Medicine 12/16/22 08/15/24 Dasia Waters PharmD [address] [place] [address] Pharmacist Internal Medicine 08/16/24 01/16/25 Iker MARCUSA 12/18/24 documented as of this encounter
--- OUTSIDE RECORDS SUMMARY | 2025-02-09 17:02 | XMS_ITS | Encounter Summary ---
Author Organization [facility] Address [address] [place] [address] Care Team Providers Care Accountant Certified Public Name Role Phone Pascual Darnell MD Primary Care Provi chio Encounter Details Date Type Department Care Team (Late Contact Info) Description 11/23/2024 Lab Requisition [facility] - Main Lab [address] [facility] [place] [phone] Vero Mike MD [address] [place], [place] [id number] Type 1 diabetes mellitus with hyperglycemia (CMS/HCC [...] AM EST Office Visit Orthopedic Surgery - [place] [address] [phone] Luciano Smith DPM [address] [phone] documented as of this encounter Procedures Procedure Name Priority Date/Time Associated Diagnosis Comments VITAMIN D 25 HYDROXY Routine 11/24/2024 6:16 AM EDT Type 1 diabetes mellitus with hyperglycemia (CMS/HCC V24, CMS/HCC V28) Old myocardial infarction Essential (primary) hypertension Vitamin D deficiency, unspecified COMPLETE BLOOD COUNT Routine 11/24/2024 6:16 AM EDT Type 1 diabetes mellitus with hyperglycemia ([facility] V24, [facility]/HCC V28) Old myocardial infarction Essential (primary) hypertension Vitamin D deficiency, unspecified THYROID STIMULATING HORMONE Routine 11/24/2024 6:16 AM EDT Type 1 diabetes mellitus with hyperglycemia ([facility]/HCC V24, [facility] V28) Old myocardial infarction Essential (primary) hypertension Vitamin D deficiency, unspecified HEMOGLOBIN A1C Routine 11/24/2024 6:16 AM EDT Type 1 diabetes mellitus with hyperglycemia ([facility]/HCC V24, [facility] V28) Old myocardial infarction Essential (primary) hypertension Vitamin D deficiency, unspecified VITAMIN B12 Routine 11/24/2024 6:16 AM EDT Type 1 diabetes mellitus with hyperglycemia ([facility]/HCC V24, [facility] V28) Old myocardial infarction Essential (primary) hypertension Vitamin D deficiency, unspecified COMPREHENSIVE METABOLIC PANEL Routine 11/24/2024 6:16 AM EDT Type 1 diabetes mellitus with hyperglycemia ([facility]/HCC V24, [facility] V28) Old myocardial infarction Essential (primary) hypertension Vitamin D deficiency, unspecified documented in this encounter Results * (ABNORMAL) Hemoglobin A1c (11/24/2024 6:16 AM EDT) Hemoglobin A1C 8.9(H) <6.5 % LAB CHEMISTRY METHOD 11/24/2024 12:29 PM EDT [facility] Mean Bld Glu Estim. 209 mg/dL LAB CHEMISTRY METHOD 11/24/2024 12:29 PM EDT [facility] Blood Venous blood specimen / Unknown Venipuncture / Unknown 11/24/2024 6:16 AM EDT 11/24/2024 10:24 AM EDT us Fahim A Rashid MD LAB BLOOD ORDERABLES Final Resul t [facility] [address] [place] [address], * (ABNORMAL) Complete blood count (11/24/2024 6:16 AM EDT) WBC 8.5 4.8 - 10.8 K/mcL LAB HEMETOLOGY METHOD 11/24/2024 11:00 AM [facility] RBC 3.80 3.80 - 4.80 M/mcL LAB HEMETOLOGY METHOD 11/24/2024 11:00 AM [facility] Hemoglobin 10.4(L) 11.5 - 16.0 g/dL LAB HEMETOLOGY METHOD 11/24/2024 11:00 AM [facility] Hematocrit 32.5(L) 35.0 - 47.0 % LAB HEMETOLOGY METHOD 11/24/2024 11:00 AM [facility] MCV 86.2 79.0 - 98.0 FL LAB HEMETOLOGY METHOD 11/24/2024 11:00 AM [facility] MCH 27.6 27.0 - 32.0 pcg LAB HEMETOLOGY METHOD 11/24/2024 11:00 AM [facility] MCHC 32.0 32.0 - 37.0 g/dL LAB HEMETOLOGY METHOD 11/24/2024 11:00 AM [facility] RDW 13.1 11.0 - 15.0 % LAB HEMETOLOGY METHOD 11/24/2024 11:00 AM [facility] Platelets 345 130 - 400 K/mcL LAB HEMETOLOGY METHOD 11/24/2024 11:00 AM [facility] MPV 10.1 7.0 - 11.0 FL LAB HEMETOLOGY METHOD 11/24/2024 11:00 AM EDT [facility] NRBC 0.0 <1.0 % LAB HEMETOLOGY METHOD 11/24/2024 11:00 AM EDT [facility] NRBC Absolute 0.00 <0.10 K/mcL LAB HEMETOLOGY METHOD 11/24/2024 11:00 AM T [facility] Blood Venous blood specimen / Unknown Venipuncture / Unknown 11/24/2024 6:16 AM EDT 11/24/2024 10:24 AM EDT us Vero Mike MD LAB BLOOD ORDERABLES Final Resul t [facility] [address] [place] [address], [place] [phone] * (ABNORMAL) Comprehensive metabolic panel (11/24/2024 6:16 AM EDT) Sodium 138 133 - 145 mmol/L LAB CHEMISTRY METHOD 11/24/2024 11:35 AM [facility] Potassium 4.5 3.5 - 5.5 mmol/L LAB CHEMISTRY METHOD 11/24/2024 11:35 AM [facility] Chloride 104 96 - 110 mmol/L LAB CHEMISTRY METHOD 11/24/2024 11:35 AM [facility] CO2 28 21 - 32 mmol/L LAB CHEMISTRY METHOD 11/24/2024 11:35 AM [facility] Anion Gap 6 3 - 11 LAB CHEMISTRY METHOD 11/24/2024 11:35 AM [facility] Glucose 77 70 - 100 mg/dL LAB CHEMISTRY METHOD 11/24/2024 11:35 AM [facility] BUN 21 5 - 25 mg/dL LAB CHEMISTRY METHOD 11/24/2024 11:35 AM [facility] Creatinine 0.96 0.50 - 1.10 mg/dL LAB CHEMISTRY METHOD 11/24/2024 11:35 AM [facility] eGFR 62 >=60 mL/min/1. 73m2 LAB CHEMISTRY METHOD 11/24/2024 11:35 AM [facility] Comment:Calculation based on the Chronic Kidney Disease Epidemiology Collaboration (CKD-EPI) equation refit without adjustment for race. BUN/Creatinine Ratio 21.9 LAB CHEMISTRY METHOD 11/24/2024 11:35 AM [facility] Calcium 9.2 8.5 - 10.5 mg/dL LAB CHEMISTRY METHOD 11/24/2024 11:35 AM [facility] AST (SGOT) 18 10 - 42 unit/L LAB CHEMISTRY METHOD 11/24/2024 11:35 AM [facility] ALT (SGPT) 26 10 - 60 unit/L LAB CHEMISTRY METHOD 11/24/2024 11:35 AM [facility] Alkaline Phosphatase 99 42 - 121 unit/L LAB CHEMISTRY METHOD 11/24/2024 11:35 AM [facility] Total Protein 5.6(L) 6.0 - 8.0 g/dL LAB CHEMISTRY METHOD 11/24/2024 11:35 AM [facility] Albumin 3.3 3.2 - 5.0 g/dL LAB CHEMISTRY METHOD 11/24/2024 11:35 AM [facility] Total Bilirubin 0.3 0.0 - 1.4 mg/dL LAB CHEMISTRY METHOD 11/24/2024 11:35 AM [facility] Blood Venous blood specimen / Unknown Venipuncture / Unknown 11/24/2024 6:16 AM EDT 11/24/2024 10:32 AM EDT us Vero Mike MD LAB BLOOD ORDERABLES Final Resul t [facility] [address] [place] [address], [place] [phone] * Thyroid stimulating hormone (11/24/2024 6:16 AM EDT) [facility] TSH 1.63 0.40 - 4.00 mcIU/mL LAB CHEMISTRY METHOD 11/24/2024 1:30 PM EDT [facility] Blood Venous blood specimen / Unknown Venipuncture / Unknown 11/24/2024 6:16 AM EDT 11/24/2024 10:32 AM EDT us Vero Mike MD LAB BLOOD ORDERABLES Final Resul t Performing Organization Address City/[facility] Co de Phone Number [facility] [address] [place] [address], [place] [phone] * Vitamin D 25 hydroxy (11/24/2024 6:16 AM EDT) [facility] Vit D, 25-Hydroxy 50.1 30.0 - 80.0 ng/mL LAB CHEMISTRY METHOD 11/24/2024 1:30 PM EDT [facility] Blood Venous blood specimen / Unknown Venipuncture / Unknown 11/24/2024 6:16 AM EDT 11/24/2024 10:32 AM EDT us Vero Mike MD LAB BLOOD ORDERABLES Final Resul t Performing Organization Address City/[facility]/ZIP Co de Phone Number [facility] [address] [place] [address], [place] [phone] * (ABNORMAL) Vitamin B12 (11/24/2024 6:16 AM EDT) [facility] Vitamin B-12 979(H) 250 - 900 pcg/mL LAB CHEMISTRY METHOD 11/24/2024 11:58 AM EDT [facility] Blood Venous blood specimen / Unknown Venipuncture / Unknown 11/24/2024 6:16 AM EDT 11/24/2024 10:32 AM EDT us Vero Mike MD LAB BLOOD ORDERABLES Final Resul t [facility] [address] [place] [address], documented in this encounter Visit Diagnoses Diagnosis Type 1 diabetes mellitus with hyperglycemia ([facility] V24, [facility] V28) Old myocardial infarction Essential (primary) hypertension Unspecified essential hypertension Vitamin D deficiency, unspecified documented in this encounter Care Teams Accountant Certified Public Relationship Specialty Start Date End Date Pascual aDrnell MD [address] [place] [phone] PCP - General Internal Medicine 06/18/24 documented as of this encounter
== END 2025-02-09 12:04 | disposition home or self-care (01) ==
LOC: HO.HHCX 12:03
PROVIDERS: Visit Provider General Practice
DX: R10.24 Suprapubic pain (principal); R39.89 Other symptoms and signs involving the genitourinary system
CPT/HCPCS: 74018

== ENCOUNTER → 2025-02-09 12:03 | Outpatient (BNV) | payer OTHER, SELFPAY | PROVIDERS: Visit Provider Radiology Diagnostic Radiology | DX: R10.9 Unspecified abdominal pain (principal) | CPT/HCPCS: 74018; 74177 ==

== ENCOUNTER 2025-02-09 14:11 | Emergency (ER) | payer OTHER, SELFPAY ==
--- NOTE | ~2025-02-09 | CT_ITS ---
CLINICAL HISTORY: abdominal pain Exam: Contrast-enhanced CT abdomen and pelvis with multiplanar reformats. Comparison: None. Findings: CT abdomen: Lung bases are clear. Liver is free of focal lesions and ductal dilatation. Gallbladder is absent. Spleen appears unremarkable. Pancreas and adrenal glands appear unremarkable. Kidneys appear unremarkable. No free intraperitoneal fluid or retroperitoneal masses or adenopathy. Abdominal aorta is normal caliber with minimal calcific atherosclerosis. 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 No abnormal bowel wall thickening or distention. The appendix is not identified, however there is no secondary CT evidence of appendicitis. No significant diverticular disease. CT pelvis: Uterus and adnexal structures appear unremarkable. Urinary bladder is free of gross filling defects. No pelvic masses, fluid or adenopathy. Osseous structures reveal no destructive osseous lesions. Impression: 1. No acute abnormalities or CT explanation for abdominal pain. This document has been electronically signed by: Cristian Anthony MD on 02/09/2025 18:41:46
[2025-02-09 14:57] VITALS: BP 178/82; PULSE 103; RESP 16; TEMP 36.8; O2SAT 98; BMI 31.9
[2025-02-09 15:47] LABS: MANUAL DIFF FLAG NO
[2025-02-09 15:49] LABS: Hematocrit 36.1 % (37.0-47.0); Hemoglobin 11.7 g/dl (12.0-16.0); Imm Gran Abs Auto 0.02 X10*3/uL (0.00-0.03); Imm Gran Pct Auto 0.3 % (0.0-0.4); Lymphocytes Absolute Auto 2.2 X10*3/uL (1.2-4.9); Mean Corpuscular HGB Conc 32.4 g/dl (31.0-35.0); Mean Corpuscular Hemoglobin 27.9 pg (27.0-33.0); Mean Corpuscular Volume 86.2 fL (80.0-98.0); NRBC Abs Auto 0.000 X10*3/uL (0.0-0.012); NRBC Pct Auto 0.0 /100WBC (0.0-0.2); Platelet Count 172 X10*3/uL (160-400); Red Blood Count 4.19 X10*6/uL (4.20-5.50); White Blood Count 7.3 X10*3/uL (4.8-10.8)
[2025-02-09 16:05] LABS: Alanine Aminotransferase 28 U/L (0-31); Albumin Level 4.1 g/dL (3.5-5.0); Alkaline Phosphatase 83 U/L (39-117); Anion Gap 10 (12-20); Aspartate Amino Transferase 23 U/L (5-31); Blood Urea Nitrogen 19 mg/dL (9-16); Calcium 9.0 mg/dL (8.4-10.2); Carbon Dioxide 26 mmol/L (22-29); Chloride 108 mmol/L (96-108); Creatinine Clr Calc Pharmacy 44.5; Estimated Glomerular Filt Rate 58; Potassium 4.2 mmol/L (3.3-5.1); Sodium 140 mmol/L (135-145); Total Protein 6.3 g/dL (6.5-8.0)
--- NOTE | 2025-02-09 16:10 | ED.GENADULT ---
HPI - General Adult General Chief complaint: Abdominal Pain Stated complaint: ABDOMINAL PAIN Time Seen by Provider: 02/09/25 16:09 Source: patient Mode of arrival: ambulatory Limitations: language barrier History of Present Illness ED Provider: Dr. Reese HPI narrative: This is a 75-year-old female history of diabetes, osteoporosis, anemia, GERD, hyperlipidemia presented to the ER today for evaluation of lower abdominal pain. This has been going on for 3 weeks now. She had an outpatient x-ray performed it was instruct coming to ER for evaluation denies any nausea vomiting denies any diarrhea. Denies any fever. Denies any dysuria or hematuria. Related Data Home Medications ?Medication ?Instructions ?Recorded ?Confirmed clonazepam 0.5 mg tablet 1 tab PO Q8H PRN anxiety 01/02/21 01/13/25 amlodipine 10 mg tablet 10 mg PO DAILY 05/14/22 01/13/25 prazosin 2 mg capsule 6 mg PO BEDTIME 05/14/22 01/13/25 aripiprazole 20 mg tablet 20 mg PO DAILY 01/10/23 01/13/25 losartan 100 mg tablet 100 mg PO DAILY 07/30/23 01/13/25 atorvastatin 20 mg tablet 20 mg PO DAILY 08/21/23 01/13/25 gabapentin 100 mg capsule 100 mg PO BID 08/21/23 01/13/25 melatonin 3 mg tablet 3 mg PO BEDTIME 08/21/23 01/13/25 venlafaxine 75 mg capsule,extended 75 mg PO DAILY 10/07/24 01/13/25 release 24 hr cholecalciferol (vitamin D3) 50 50 mcg PO DAILY 11/09/24 01/13/25 mcg (2,000 unit) capsule (Vitamin D3) clopidogrel 75 mg tablet 75 mg PO DAILY 11/09/24 01/13/25 esomeprazole magnesium 40 mg 40 mg PO DAILY@0630 11/09/24 01/13/25 capsule,delayed release levothyroxine 125 mcg tablet 125 mcg PO DAILY@0600 11/09/24 01/13/25 linaclotide 145 mcg capsule 145 mcg PO DAILY 11/09/24 01/13/25 (Linzess) oxycodone 5 mg tablet 5 mg PO Q12H PRN Pain, 11/09/24 01/13/25 Moderate(Pain Scale 4-6) simethicone 125 mg chewable tablet 125 mg PO QID PRN abdominal 11/09/24 01/13/25 (Gas Relief (simethicone)) distention folic acid 1 mg tablet 1 mg PO DAILY 01/13/25 01/13/25 Previous Rx's ?Medication ?Instructions ?Recorded insulin syringe-needle U-100 0.3 #100 ea 06/13/20 mL 31 gauge x 5/16 (BD Insulin Syringe Ultra-Fine) albuterol sulfate 90 mcg/actuation 2 puff inhalation Q4-6H PRN 04/10/23 aerosol inhaler shortness of breath or wheezing #8.5 grams albuterol sulfate 2.5 mg/3 mL 2.5 mg (3 mL) inhalation Q3H PRN 04/18/23 (0.083 %) solution for nebulization sob #180 mL nebulizers #1 ea 04/18/23 acetaminophen 325 mg tablet 650 mg (2 x 325 mg) PO Q6H PRN 09/16/23 Pain, Mild (Pain Scale 1-3) #1 tab ondansetron 4 mg disintegrating 4 mg PO Q8H PRN nausea and 01/04/24 tablet vomiting #7 tabs zinc gluconate 30 mg tablet 30 mg PO DAILY #90 tabs 04/01/24 carvedilol 6.25 mg tablet 6.25 mg PO BID #180 tabs 07/22/24 blood-glucose sensor (HireAHelper G7 #3 ea 07/30/24 Sensor device) blood sugar diagnostic (FreeStyle #200 strips 08/03/24 Lite Strips) calcium citrate 400 mg (2 x 200 mg (950 mg)) PO 09/22/24 BID #120 tabs glucagon 3 mg/actuation nasal 3 mg intranasal ONCE PRN 11/08/24 spray (Baqsimi) Unresponsive hypoglycemia may repeat in 15min 30 days #2 ea pen needle, diabetic 32 gauge x #200 ea 11/08/24 (Pentips Pen Needle) Fiasp FlexTouch U-100 Insulin 100 See Protocol subcut TIDAC #15 mL 01/07/25 unit/mL (3 mL) subcutaneous pen (insulin aspart (niacinamide)) blood-glucose meter (FreeStyle #1 ea 01/07/25 Lite Meter kit) insulin degludec 100 unit/mL (3 20 unit (0.2 mL) subcut DAILY #15 01/07/25 mL) subcutaneous pen (Tresiba mL FlexTouch U-100 insulin) bisacodyl 5 mg tablet,delayed 10 mg (2 x 5 mg) PO BEDTIME #60 01/11/25 release tabs prednisone 5 mg tablet 5 mg PO DIRECTED #70 tabs 01/11/25 Actemra ACTPen 162 mg/0.9 mL 162 mg (0.9 mL) subcut Q2W #1.8 mL 02/03/25 subcutaneous pen injector (tocilizumab) cephalexin 500 mg capsule 500 mg PO Q8H 7 days #21 caps 02/09/25 Allergies Allergy/AdvReac Type Severity Reaction Status Date / Time lorazepam (LORAZEPAM) Allergy Severe DELIRIUM Verified 02/09/25 14:59 celecoxib (From Celebrex) Allergy Intermediate ITCHING Verified 02/09/25 14:59 tramadol (TRAMADOL) Allergy Intermediate ITCHING Verified 02/09/25 14:59 zolpidem (Ambien) Allergy Unknown unknown Verified 02/09/25 14:59 Review of Systems Review of Systems: Pertinent review of systems as mentioned in HPI. All other system otherwise negative. [facility] Past Medical History [facility] Narrative: Medical history as mentioned in HPI Medical History Heart palpitations Hypoglycemia due to insulin Elevated parathyroid hormone Osteoporosis Hyperlipidemia (04/21/1959) Depressive disorder (04/21/1959) Nutritional anemia (04/21/1959) Shortness of breath Hypothyroidism (04/21/1959) Anemia Chronic gastritis NSTEMI (non-ST elevated myocardial infarction) Recurrent falls (12/04/11) Iron deficiency anemia (04/21/1959) Fibromyositis (04/21/1959) Eczema (04/21/1959) High risk medication use Hepatitis C antibody positive in blood Screening for osteoporosis Screening for viral disease Joint swelling Overweight (BMI 25.0-29.9) Neck pain Swelling of knee joint, right Intra-abdominal abscess Diabetes Elevated liver function tests Intestinal malabsorption following gastrectomy Obesity (BMI 30-39.9) 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 Hypertension Cholecystitis Hyperlipidemia, unspecified Essential hypertension Atherosclerotic cardiovascular disease Fibromyalgia Folliculitis Anxiety Depression History of myocardial infarction Diabetes type 1, uncontrolled Hyperparathyroidism due to vitamin D deficiency Dyslipidemia Rona's disease Hypothyroidism Surgical History Status post gastric bypass for obesity History of bypass gastroenterostomy (11/13/17) H/O gastric bypass S/P laparoscopic cholecystectomy History of esophagogastroduodenoscopy (EGD) H/O colonoscopy History of laparoscopic cholecystectomy History of bladder suspension procedure Status post laser cataract surgery of both eyes Hx of appendectomy Family History Family History Father No problems noted. Mother CVA (cerebral vascular accident) Sister Hypertension Brother Hypertension Liver cancer Social History Social History Household Members: None Housing: Apartment Are you a primary nursing care partner to a significant other at home: No Do you presently have visiting nurse or other home services: Yes Alcohol intake: never Patient Tobacco Use Status: Never used Tobacco Advance Directives: Yes Advance Directives on File: Yes Advance Directives Date on File: 09/17/23 Do you have a plan to hurt others: No Plan service: No Current occupational status: disabled Current occupation: right hand dominant Physical Exam ED Exam Exam: General: Pleasant, no distress, interacting appropriately Head: Normacephalic, atraumatic ENT: oral mucosa moist, neck supple, no tracheal deviation Cardiovascular: regular rate, regular rhythm, no murmurs, rubbing, gallops Respiratory: CTAB, no wheeze, rales, rhonchi Gastrointestinal: Soft, non distended, diffuse abdominal tenderness on palpation Neurological: Awake and alert, no facial droop noted Skin: Warm and dry Psychiatric: Appropriate mood and thoughts Vital Signs: Vital Signs - 24 hr 02/09/25 14:57 02/09/25 16:40 Temperature 98.3 F 98.5 F Pulse Rate 103 H 106 H Respiratory Rate 16 18 Blood Pressure 178/82 H 195/76 H Pulse Oximetry 98 96 Oxygen Delivery Method Room Air Room Air BMI result Body Mass Index 31.9 Medications Administered Discontinued Medications Generic Name Dose Route Start Last Admin Trade Name Freq PRN Reason Stop Dose Admin Sodium Chloride 1,000 mls @ 999 mls/hr 02/09/25 16:15 02/09/25 17:12 Ns IV 02/09/25 17:15 999 mls/hr .Q1H1M SARAH Administration Iohexol 100 ml 02/09/25 17:03 02/09/25 17:03 Iohexol 350 Mg/Ml 100 Ml Infus..Btl IV 02/09/25 17:04 85 ml ONCE ONE Administration Medical Decision Making Medical Decision Making [facility] Narrative: 75-year-old female history of bariatric surgery, presented hospital today for lower abdominal tenderness. Patient stated that is inferior to her umbilicus. However on exam patient is diffusely tender. This has been going on for 3 weeks now. Patient was sent in by outpatient clinic for further evaluation. No nausea no vomiting no fever. No diarrhea. Patient's last bowel movement was earlier today. Based on patient's risk factor and age. We will obtain a CT imaging to further assess for any intra-abdominal cause of her abdominal pain. Abdominal lab work will be obtained as well. IV fluid be initiated for the patient. door worker was used for this encounter. Patient's CBC is unremarkable. Slight anemia at 11.7. Patient's chemistries unremarkable as well. Patient does have slight hyperglycemia at 194. Patient's UA did show signs of a possible UTI. CT imaging was negative. We will plan to discharge patient with Keflex. door worker was used. Patient agrees and understands this plan all questions were addressed. Differential Diagnosis Differential Diagnoses: The differential diagnosis associated with the presentation includes Gastritis, colitis, constipation, diverticulitis, appendicitis Lab Data MDM Lab Attestation statement: I reviewed the patient's lab results. 02/09/25 15:38 02/09/25 15:38 Labs: Lab Results 02/09/25 02/09/25 Range/Units 15:38 18:11 WBC 7.3 (4.8-10.8) X10*3/uL RBC 4.19 L (4.20-5.50) X10*6/uL Hgb 11.7 L (12.0-16.0) g/dl Hct 36.1 L (37.0-47.0) % MCV 86.2 (80.0-98.0) fL MCH 27.9 (27.0-33.0) pg MCHC 32.4 (31.0-35.0) g/dl RDW 16.4 H (11.0-16.0) % Plt Count 172 (160-400) X10*3/uL MPV 10.5 (9.4-12.3) fL Immature Gran % (Auto) 0.3 (0.0-0.4) % Neut % (Auto) 54.2 (45-73) % Lymph % (Auto) 30.3 (20-40) % B[place] % (Auto) 7.0 (2-11) % Eos % (Auto) 7.2 H (0-4) % Baso % (Auto) 1.0 (0-2) % Lymph # (Auto) 2.2 (1.2-4.9) X10*3/uL [place] # (Auto) 0.5 (0.1-1.2) X10*3/uL Eos # (Auto) 0.5 H (0.0-0.4) X10*3/uL Baso # (Auto) 0.1 (0.0-0.2) X10*3/uL Abs Immat Gran (auto) 0.02 (0.00-0.03) X10*3/uL Absolute Neuts (auto) 3.9 (2.0-8.3) x10*3/uL Absolute Nucleated RBC 0.000 (0.0-0.012) X10*3/uL Nucleated RBC % (auto) 0.0 (0.0-0.2) /100WBC Sodium 140 (135-145) mmol/L Potassium 4.2 (3.3-5.1) mmol/L Chloride 108 (96-108) mmol/L Carbon Dioxide 26 (22-29) mmol/L Anion Gap 10 L (12-20) BUN 19 H (9-16) mg/dL Creatinine 0.94 (0.5-1.4) mg/dL Estim Creat Clear Calc 44.5 Estimated GFR 58 Random Glucose 194 H (60-115) mg/dL Calcium 9.0 (8.4-10.2) mg/dL Total Bilirubin 0.3 (0.0-1.0) mg/dL AST 23 (5-31) U/L ALT 28 (0-31) U/L Alkaline Phosphatase 83 (39-117) U/L Total Protein 6.3 L (6.5-8.0) g/dL Albumin 4.1 (3.5-5.0) g/dL Urine Color Yellow Urine Appearance Clear Urine pH 6.0 (5.0-9.0) Ur Specific [place] 1.010 (1.005-1.025) Urine Protein Negative (Neg-Trace) mg/dL Urine Glucose (UA) Negative (Negative) mg/dL Urine Ketones Negative (Negative) mg/dL Urine Blood Negative (Negative) Urine Nitrite Negative (Negative) Ur Leukocyte Esterase Trace H (Negative) Urine RBC 0-2 (0-2) /HPF Urine WBC 6-10 H (0-5) /HPF Ur Squamous Epith Cells 3-5 (0-2) /HPF Urine Bacteria None Seen (None Seen) Hyaline Casts 0-2 (0-2) /LPF Urine Yeast Present Independent Interpretation I performed an independent interpretation of an: CT Scan Radiology Impression Discussion of test interpretation with radiology: I have reviewed the radiologist's reading. Discharge Plan Discharge Clinical Impression: UTI (urinary tract infection) Qualifiers: Urinary tract infection type: site unspecified Hematuria presence: without hematuria Qualified Code(s): N39.0 - Urinary tract infection, site not specified Patient Disposition: Home, Self-Care Instructions: Urinary Tract Infection in Older Adults (ED) Prescriptions: New cephalexin 500 mg capsule 500 mg PO Q8H 7 Days Qty: 21 0RF No Action (DME) insulin syringe-needle U-100 [BD Insulin Syringe Ultra-Fine] 0.3 mL 31 gauge x 5/16 syringe See Rx Instructions .ROUTE .MEDSUPPLY Qty: 100 0RF Rx Instructions: As directed 3 times per day zinc gluconate 30 mg tablet 30 mg PO DAILY Qty: 90 3RF carvedilol 6.25 mg tablet 6.25 mg PO BID Qty: 180 3RF (DME) Dexcom G7 Sensor Device See Rx Instructions .ROUTE .MEDSUPPLY Qty: 3 11RF Rx Instructions: As directed every 10 days (DME) FreeStyle Lite Strips Strip See Rx Instructions .ROUTE .COMPLEX Qty: 200 11RF Dose Instruction: TEST BLOOD SUGAR 8 TIMES EVERY DAY Rx Instructions: TEST BLOOD SUGAR 8 TIMES EVERY DAY calcium citrate 200 mg (950 mg) tablet 400 mg PO BID Qty: 120 4RF bisacodyl 5 mg tablet,delayed release (DR/EC) 10 mg PO BEDTIME Qty: 60 6RF Actemra ACTPen 162 mg/0.9 mL pen injector 162 mg subcut Q2W Qty: 1.8 5RF clonazepam 0.5 mg tablet 1 tab PO Q8H PRN (Reason: anxiety) acetaminophen 325 mg Tablet 650 mg PO Q6H PRN (Reason: Pain, Mild (Pain Scale 1-3)) Qty: 1 0RF ondansetron 4 mg tablet,disintegrating 4 mg PO Q8H PRN (Reason: nausea and vomiting) Qty: 7 0RF albuterol sulfate 90 mcg/actuation HFA aerosol inhaler 2 puff inhalation Q4-6H PRN (Reason: shortness of breath or wheezing) Qty: 8.5 0RF albuterol sulfate 2.5 mg /3 mL (0.083 %) Solution For Nebulization 2.5 mg inhalation Q3H PRN (Reason: sob) Qty: 180 2RF (DME) nebulizers Misc See Rx Instructions .Route Qty: 1 0RF Rx Instructions: As directed clopidogrel 75 mg tablet 75 mg PO DAILY esomeprazole magnesium 40 mg capsule,delayed release(DR/EC) 40 mg PO DAILY@0630 levothyroxine 125 mcg tablet 125 mcg PO DAILY@0600 simethicone [Gas Relief (simethicone)] 125 mg tablet,chewable 125 mg PO QID PRN (Reason: abdominal distention) cholecalciferol (vitamin D3) [Vitamin D3] 50 mcg (2,000 unit) capsule 50 mcg PO DAILY Linzess 145 mcg capsule 145 mcg PO DAILY Rx Instructions: Take first thing in the morning with a full glass of water. oxycodone 5 mg tablet 5 mg PO Q12H PRN (Reason: Pain, Moderate(Pain Scale 4-6)) Rx Instructions: Partial Fill upon patient request. amlodipine 10 mg tablet 10 mg PO DAILY prazosin 2 mg capsule 6 mg PO BEDTIME aripiprazole 20 mg tablet 20 mg PO DAILY losartan 100 mg tablet 100 mg PO DAILY prednisone 5 mg tablet 5 mg PO DIRECTED Qty: 70 0RF Rx Instructions: Take 4 tablets for 7 days then 3 tablets for 7 days then 2 tablets for 7 days then 1 tablet for 7 days then stop gabapentin 100 mg capsule 100 mg PO BID melatonin 3 mg tablet 3 mg PO BEDTIME atorvastatin 20 mg tablet 20 mg PO DAILY venlafaxine 75 mg capsule,extended release 24hr 75 mg PO DAILY Baqsimi 3 mg/actuation spray,non-aerosol 3 mg intranasal ONCE PRN (Reason: Unresponsive hypoglycemia may repeat in 15min) 30 Days Qty: 2 1RF (DME) pen needle, diabetic [Pentips Pen Needle] 32 gauge x 5/32 needle See Rx Instructions .ROUTE .COMPLEX Qty: 200 7RF Dose Instruction: USE FIVE TIMES DAILY Rx Instructions: USE FIVE TIMES DAILY (DME) blood-glucose meter [FreeStyle Lite Meter] Kit See Rx Instructions .ROUTE .MEDSUPPLY Qty: 1 0RF Rx Instructions: As directed insulin degludec [Tresiba FlexTouch U-100] 100 unit/mL (3 mL) insulin pen 20 unit subcut DAILY Qty: 15 3RF Fiasp FlexTouch U-100 Insulin 100 unit/mL (3 mL) insulin pen See Protocol subcut TIDAC Qty: 15 5RF Protocol: Insulin Correction Scale Less than or equal to 110 ---- Give (units): 0 111 to 150 Give (units): 0 151 to 200 Give (units): 2 201 to 250 Give (units): 4 251 to 300 Give (units): 6 301 to 350 Give (units): 8 Greater than 350 Give (units): 10 Call MD if Blood Glucose > : 350 Rx Instructions: Breakfast dosing Fiasp 80-100 5 units 101-200 8 units 151-200 10 units 201-250 12 units 251 -300 12 units Over 300 12 units Lunch and supper 80-100 10 units 101-150 10 units 151-200 12 units 201-250 14 units 250-300 14 units over 300 lunch 14 units folic acid 1 mg tablet 1 mg PO DAILY Print Language: Peruvian
[2025-02-09 16:40] VITALS: BP 195/76; PULSE 106; RESP 18; TEMP 36.9; O2SAT 96
[2025-02-09] MEDS: iohexoL 350 MG/ML 100 ML INFUS..BTL IV (17:03)
[2025-02-09 18:23] LABS: Appearance Urine Clear; Glucose Urine UA Negative (Negative); PH 6.0 (5.0-9.0); Specific Gravity - Urine 1.010 (1.005-1.025); UMIC TRIGGER UACC YES
[2025-02-09 18:37] LABS: UACC Culture Trigger YES
[2025-02-09 19:48] VITALS: BP 195/76; PULSE 106; RESP 18; TEMP 36.9; O2SAT 96
--- OUTSIDE RECORDS SUMMARY | 2025-02-09 21:36 | XMS_ITS | Data Portability ---
Author Organization [employer] [facility] Address [address] [place] [address] Care Team Providers Care Supervisor Extrusion Name Role Phone [facility] Referring Provider Assessment Encounter Date Assessment Date Assessment LastModified by Organization Details LastModified Time 04/11/2023 04/11/2023 I provided real -time medical direction via phone for this encounter, and was available for additional phone based assistance as needed. I have reviewed and agree with the Assessment and Plan as documented by the Rag Cutting Machine Tender. Patient given the opportunity to ask questions. Advised to call for another visit over the weekend if not improving in 2 to 3 days however if develops CP/severe SOB/turning blue/uncontrolle d n/v/d or black/bloody emesis or stool/ AMS/ syncope/ hi fever unresponsive to APAP to call 911- verbalized understanding of instructions [email or web address] Not available 04/12/2023 10:53:05 Plan of Treatment [...] Not available Not available Not available 04/11/2023 [id number] RxNorm Anitha Camacho MD [address] [facility],[address], [place], [phone] , [employer] 14:49:47 4127 Celebrex medicatio n Not available Not available Not available 04/11/2023 [id number] Forrest Camacho MD [address] [facility],[address], [place], [phone], [employer] 14:49:57 4128 tramadol medicatio n Not available Not available Not available 04/11/2023 [id number] Forrest Camacho MD [address] [facility],[address], [place], [phone], [employer] 14:50:04 Medications Name Sig Start Date Stop [...] Available Not Available No t Available [employer] Lite kit USE DIRECTED active Not Available [...] Respiratory rate Body temperature Heart rate Systolic And Diastolic Provider Name and Address Organization Details Last Updated DateTime 3 97 % 97 % 92128.5 36 g 18 /min 97.8 [degF] 88 /min 167/84 mm[Hg] Not Available [employer] - production 3 14:49:26 Social History None recorded. Functional Status None recorded. Mental Status None recorded. Family History Nothing Reported. Medical History No medical history recorded. Gynecological HistoryNo gynecological history recorded. Obstetrics History GPAL:G 0 P 0 0 0 0 Past Encounters Encounter ID Performer Location Encounter Start Date Encounter Closed Date Diagnosis/Indication Diagnosis SNOMED-CT Code Diagnosis ICD10 Code Diagnosis IMO Codes Diagnosis Note [id number] Anitha Camacho MD Main - [facility] [address] [place] [phone] 04/11/2023 14:49:23 08/20/2024 13:15:45 Respiratory syncytial virus infection 62171363 B97.4 Continue medication s as prescribed ., [...] Patten Member ID Guarantor Name 08/20/2024 1 [facility] - DOS ON OR AFTER 2022 - DUAL ELIGIBLE - USP OPTIONS AND ONE CARE (MEDICARE REPLACEMENT/ADV ANTAGE - HMO) Brandie Santana [id number] Brnadie Ryanyes Notes Date Note Type Note Provider Name and Address Organization Details Recorded Time 04/11/2023 text/html ROS as noted in the HPI HPI: 73 year old, Monegasque speaking member, F, with hx of DM, HTN, Asthma, Depression, hx of falls and chronic pain, reporting worsesing Productive cough, shortness of breath with activities and fatigue, worsening head aches, treated at [facility] [place]23 and dx with RSV. Reported has fever and chills, believes her BP is high. Her CORRECTIONAL OFFICER CAPTAIN worker is with her and member asked [...] .................. .................. .................. .................. .................. .................. ............... Rag Cutting Machine Tender Note From Teddy Miranda: Pt sts dis not call for [employer]. [facility] set up appt. Pt was in ER yesterday diagnosed with RSV treated RX for ventalin and prednisone. Pt denies cp sob fever nausea diarrhea. Baseline vitals assessed. Lungs clear. No edema. [facility] contacted ..pt declined benzonatate. Pt advised self care and continue with RX meds. Pt education on signs indicating the ER. Rag Cutting Machine Tender Allergies: Lorazepam .................. .................. .................. .................. .................. .................. .................. ............... Disposition: Fulfilled Comments: Reviewed - Johana RNSEGMD: Patient seen yesterday evening [facility]. COvid negative per patient/ RSV +/She is using her albuterol every 4 hours. She is on prednisone. No nausea vomiting.Pat has hx that includes but not limited to: DM2/COPD/HTN/Fe deficiency anemia/hypothyroid ism/MDD with psychotic features/obesity status post laparoscopic gastrectomy/positi ve SUSAN/fibromyalgia. Anitha Camacho MD [address] [facility],[address], [place], [phone], [place] [employer] 04/12/2023 10:53:56 OBGyn Episode No OBEpisode recorded.
--- OUTSIDE RECORDS SUMMARY | 2025-02-09 21:37 | XMS_ITS | Data Portability ---
Author Organization [facility] [employer] [facility], Main Office Address [address] [place] [address] Care Team Providers Care Heel Burnisher Name Role Phone MARII MASSEY Primary Care Provider [facility] - 2ND FLOOR OTHER Assessment No assessment recorded. Plan of Treatment Reminders Order Date Submit Date Provider Last Modified By Organization Details Last Modified Time Details Appointments None recorded. Lab None recorded. Referral None recorded. Procedures None recorded. Surgeries None recorded. Imaging None recorded. Medication Orders oxycodone 5 mg tablet 2023 024 [facility] , [address] [place] [address], [address], 4 21:23:28 oxycodone 5 mg tablet 2023 024 [facility] , [address] [place] [address], [address], 4 13:28:18 Patient TargetsNo targets recorded. Patient InstructionsNo instructions recorded. Reason for Referral None Reported. 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 Dori Pena NP [address], [address], [place], [address], [facility] 4 15:49:21 Hypertensive disorder 09859250 Active 2023 Dori Pena NP [address], [address], [place], [address], [facility] 4 15:49:57 Gastroesophage al reflux disease 035936608 Active 2023 Dori Pena NP [address], [address], [place], [address], [facility] 4 15:51:24 Rheumatoid arthritis 20159674 Active 2023 Dori Pena NP [address], [address], [place], [address], [facility] 4 15:51:29 Mixed anxiety and depressive disorder 156792406 Active 2023 Dori Pena NP [address], [address], [place], [address], [facility] 4 15:51:45 Obesity 891156877 Active 2023 Dori Pena NP [address], [place], [address], [facility] 4 15:51:51 Closed flail chest 055048447 Active 2023 Dori Pena NP [address], [place], [address], [facility] 4 15:52:35 Asthenia 96103538 Active 2023 Dori Pena NP [address], [address], [place], [address], [facility] 4 15:52:46 Irritable bowel syndrome 81681542 Active 2023 Dori Pena NP [address], [address], [place], [address], [facility] 4 16:06:46 Recurrent falls 936146842 Active 2023 Dori Pena NP [address], [address], [place], [address], [facility] 4 16:38:03 Problem Notes None recorded. Procedures Surgical History Date Name Laterality Status Provider Name and Address Organization Details Recorded Time bypass gastroenterostomy completed Dori Pena NP [address], [address], [place], [address], [facility] 09/17/2023 15:40:41 Laparoscopic cholecystectomy completed Dori Pena NP [address], [address], [place], [address], [facility] 09/17/2023 15:41:25 fixed suspension procedure of urinary bladder neck completed Dori Pena NP [address], [address], [place], [address], [facility] 09/17/2023 15:42:01 Appendectomy completed Dori Pena NP [address], [address], [place], [address], [facility] 09/17/2023 15:42:11 bilateral cataract surgery completed Dori Pena NP [address], [address], [place], [address], [facility] 09/17/2023 15:42:26 Imaging Results None recorded. Procedure Notes None recorded. Medical Equipment None Reported. Allergies Allergen ID Allergen Name Allergen Category Reaction Reaction Severity Criticality Documentation Date Start Date Code Code System Note Provider Name and Address Organization Details Recorded Time 60356 celecoxib medicatio n other Not available unabletoasse 09/17/2023 65965 7 RxNorm unkno wn Dori Pena NP [address], [address], [place], [address], [facility] 4 15:37:14 54746 lorazepam medicatio n other Not available unabletoasse 09/17/2023 6470 RxNorm unkno wn Dori Pena NP [address], [address], [place], [address], [facility] 4 15:37:29 49538 tramadol medicatio n other Not available unabletoasse 09/17/2023 56599 RxNorm unkno wn Dori Pena NP [address], [address], [place], [address], [facility] 4 15:37:42 65876 zolpidem medicatio n other Not available unabletoasse 09/17/2023 17862 RxNorm unkno wn Dori Pena NP [address], [address], [place], [address], [facility] 4 15:37:56 Medications Name Sig Start Date [...] Address Organization Details Last Updated DateTime 4 89406.7 8 g 98 /min 18 /min 97.8 [degF] 94 % 94 % 150/77 mm[Hg] Dori Pena NP [address], [address], [place], [address], [facility] 4 10:49:41 Date Recorded Body weight Heart rate Respiratory rate Body temperature Oxygen saturation Oxygen saturation in Arterial blood by Pulse oximetry Systolic And Diastolic Provider Name and Address Organization Details Last Updated DateTime 4 12364.7 8 g 83 /min 18 /min 97 [degF] 98 % 98 % 148/74 mm[Hg] Dori Pena NP [address] [facility], [address], [place], [address], [facility] 4 13:29:12 Date Recorded Body weight Heart rate Respiratory rate Body temperature Oxygen saturation Oxygen saturation in Arterial blood by Pulse oximetry Systolic And Diastolic Provider Name and Address Organization Details Last Updated DateTime 4 25103.7 8 g 76 /min 18 /min 97.8 [degF] 97 % 97 % 128/78 mm[Hg] Dori Pena NP [address] [facility], [address], [place], [address], [facility] 4 12:05:35 Date Recorded Body weight Heart rate Respiratory rate Body temperature Oxygen saturation Oxygen saturation in Arterial blood by Pulse oximetry Systolic And Diastolic Provider Name and Address Organization Details Last Updated DateTime 4 95477 g 80 /min 18 /min 98 [degF] 95 % 95 % 111/60 mm[Hg] Dori Pena NP [address], [address], [place], [address], [facility] 4 11:40:36 Date Recorded Body weight Heart rate Respiratory rate Body temperature Oxygen saturation Oxygen saturation in Arterial blood by Pulse oximetry Systolic And Diastolic Provider Name and Address Organization Details Last Updated DateTime 4 31154 g 74 /min 18 /min 98.4 [degF] 95 % 95 % 124/68 mm[Hg] Dori Pena NP [address], [facility], [place], [address], [facility] 4 13:12:09 Social History Question Answer Notes LastModified by [employer] Details LastModified Time Tobacco Smoking Status Never Smoker Dori Pena NP [address], [facility], [place], [address], [facility] 09/17/2023 15:39:38 Do You Have An [...] Functional Status Question Answer Note LastModified by [email or web address] Details LastModified Time Do you use any [...] (RSV) vaccine, unspecified 4 completed Radha Jerman [facility] 09/19/2023 16:11:12 Tdap 4 completed [facility] 09/19/2023 16:11:26 Td(adult) unspecified formulation 3 completed [facility] 09/19/2023 16:11:43 Td(adult) unspecified formulation 3 completed [facility] 09/19/2023 16:11:51 Pneumococcal conjugate PCV 13 6 completed [facility] 09/19/2023 16:12:53 Pneumococcal conjugate PCV20, polysaccharide XQS600 conjugate, adjuvant, PF 4 completed [facility] 09/19/2023 16:13:07 pneumococcal polysaccharide PPV23 1 completed [facility] 09/19/2023 16:13:22 pneumococcal polysaccharide PPV23 4 completed [facility] 09/19/2023 16:13:31 influenza, unspecified formulation 2 completed [facility] 09/19/2023 16:13:47 influenza, unspecified formulation 3 completed [facility] 09/19/2023 16:13:55 MMR 8 completed [facility] 09/19/2023 16:14:21 SARS-COV-2 (COVID-19) vaccine, UNSPECIFIED 1 completed Radha Stoll [facility] 09/19/2023 16:15:58 SARS-COV-2 (COVID-19) vaccine, UNSPECIFIED 1 completed Radharos Stoll [facility] 09/19/2023 16:16:13 SARS-COV-2 (COVID-19) vaccine, UNSPECIFIED 1 completed Radha [facility] 09/19/2023 16:16:27 SARS-COV-2 (COVID-19) vaccine, UNSPECIFIED 2 completed Radha Stoll [facility] 09/19/2023 16:17:15 SARS-COV-2 (COVID-19) vaccine, UNSPECIFIED 2 completed Radha [facility] 09/19/2023 16:21:38 zoster, unspecified formulation 5 completed Radha [facility] 09/19/2023 16:23:04 zoster, unspecified formulation 9 [facility] 16:23:18 zoster, unspecified formulation 9 completed [facility] 09/19/2023 16:25:18 Past Encounters Encounter ID Performer Location Encounter Start Date Encounter Closed Date Diagnosis/Indication Diagnosis SNOMED-CT Code Diagnosis ICD10 Code Diagnosis IMO Codes Diagnosis Note [id number] Dori Pena NP [address] [address] 09/17/2023 15:22:09 09/23/2023 14:50:24 Closed flail chest 500334537 S22.5XXD with multiple rib fractures and clavicular [...] If stable no further workup needed. 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 IBSlinzess 290 mcg q ammonitor Deficiency anemias 59104 3007 D53.9 folic acidvit [id number] Coronary arteriosclerosis 69771126 I25.10 hx of MIatorvast atin 20 mg po dailyclopi dogrel 75 mg po q amsee above htn medsmonito r Recurrent falls 45315713 2 R29.6 reports history of falls with electrical experimental mechanic at home to help her and balance issuesrepo rts more than 5 falls/year supportive caremonito r [id number] JESSICA HINDS, AAKASH [place] [address] [place] [address] 09/18/2023 13:29:08 09/23/2023 15:13:15 Closed flail chest 897087175 S22.5XXD with multiple rib fractures and clavicular [...] If stable no further workup needed. Asthenia 19793631 R53.1 with notable weakness due to injuryPT OT eval and treatsuppo rtive caremonito r Type 1 frank betes mellitus 01995144 E10.9 A1C 8.8%Contin eu:tresiba 30 unit sc qhsinsulin 2-14 SSI sc qidmonitor BS and adjust as needed Hypertensive disorder 38 073633 I10 amlodipine 10 mg po dailylosar zaragoza 100 mg po dailycoreg 6.25 mg bidmonitor bp/vitals 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 120224 E06.3 levothyrox ine 112 mcg dailymonit or tsh as needed Gastroesop hageal reflux disease 738528316 K21.9 esomeprazo le 40 mg o daily Deficiency anemias 13787 3007 D53.9 folic acidvit o27dhkwrid Obesity 534720914 E66.9 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 IBSlinzess 290 mcg q ammonitor Coronary arteriosclerosis 82955842 I25.10 hx of MIatorvast atin 20 mg po dailyclopi dogrel 75 mg po q amsee above htn medsmonito r Recurrent falls 80835666 2 R29.6 reports history of falls with electrical experimental mechanic at home to help her and balance issuesrepo rts more than 5 falls/year supportive caremonito r [id number] [facility] [address] 09/22/2023 14:27:57 09/29/2023 19:16:34 Closed flail chest 627845606 S22.5XXD with multiple rib fractures and clavicular [...] If stable no further workup needed. Asthenia 96199345 R53.1 with notable weakness due to injuryPT OT eval and treatsuppo rtive caremonito r Type 1 frank betes mellitus 04807537 E10.9 BS 81-252 twpudiY9Q 8.8%contin ue:tresiba 30 unit sc qhsinsulin 2-14 SSI sc qidmonitor BS and adjust as needed Hypertensive disorder 38 246523 I10 improving lately, boderline highcontam lodipine 10 mg po dailylosar zaragoza 100 mg po dailycoreg 6.25 mg bidmonitor bp/vitals 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 071945 E06.3 contlevoth yroxine 112 mcg dailymonit or tsh as needed Gastroesop hageal reflux disease 708318913 K21.9 esomeprazo le 40 mg o daily Deficiency anemias 59325 3007 D53.9 folic acidvit y03kkeihpl Obesity 300310362 E66.9 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 IBSlinzess 290 mcg q ammonitor Coronary arteriosclerosis 15454061 I25.10 hx of MIatorvast atin 20 mg po dailyclopi dogrel 75 mg po q amsee above htn medsmonito r Recurrent falls 75723399 2 R29.6 reports history of falls with electrical experimental mechanic at home to help her and balance issuesrepo rts more than 5 falls/year supportive caremonito r Acute cystitis 05850391 N30.00 reports dysuria and occassiona l incontinen ce latelyurin e culture returned showing > 100,000 klebsiella pneumo ssp and started on ceftriaxon e 1gram IM and cefpodoxim e 200 mg po bid x 7 days with probiotic by on provider over the weekend.mo nitor [id number] Jonel Alamo MD [address] [address] 09/23/2023 11:01:43 09/29/2023 19:25:59 Closed fracture of multiple left ribs 0099878882 2765249 S22.42XG see HPIleft rib fxs 2-6 with concern for flail chest , with clavicular fxeval by surgery with no interventi on indicatedm onitor respirator y statusutil ize incentive spirometer monitor for pain controlupd ate surgery with concerns Asthenia 02609638 R53.1 PT OT eval and treatmonit or need for increased support in community Type 1 frank betes mellitus 35384990 E10.9 tresiba 30 units qdSS insulinmon itor glucose and need to titrate Hypertensive disorder 38 244479 I10 norvasc 10 mg qdcoreg 6.25 mg bidlosarta n 100 mg qdcurrentl y elevatedmo nitor need for increased control 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 755936 E06.3 hx of added to PMHmaintai priscilla onsynthroi d 112 mcg qdmonitor tsh prn Gastroesop hageal reflux disease 434036119 K21.9 nexium 40 mg qd continuedm onitor for effect Obesity 215300383 E66.09 dietary eval in patient with baseline DM Mixed anxi ety and depressive disorder 575122427 F41.8 carrying dx requiring multiple medication swill continue out patient medication s includinga bility and ativanmoni tor moodpsych eval prn Rheumatoid arthritis 698 40174 M06.9 remains onenbrel 50 mg q brittney Irritable bowel syndrome 14464070 K58.9 ? IBSlinzess 290 mcg q ammonitor Coronary arteriosclerosis 21841638 I25.10 hx of MIatorvast atin 20 mg po dailyclopi dogrel 75 mg po q amsee above htn medsmonito r Recurrent falls 68289511 2 R29.6 reports history of falls with electrical experimental mechanic at home to help her and balance issuesrepo rts more than 5 falls/year supportive caremonito r Solitary n odule of lung 081923736 R91.1 question right 4 mm upper lobe nodulecons ider repeat scan in 6-12 months Primary insomnia 3490663 F51.01 continue melatoninm onitor need to titrate Abnormal weight loss 267 902279 R63.4 weight dropped > 12 lbs in a few days from admitappea rs to be error in initial intake weightwill monitor Acute cystitis 54575061 N30.00 now on cefpodoxim e to complete coursemoni tor for recurrent disease [id number] Dori Pena NP [facility] [address] 09/24/2023 09:21:20 09/29/2023 19:39:42 Closed fracture of multiple left ribs 2017764567 1547182 S22.42XG with multiple rib fractures and clavicular [...] in am off pmadjust as needed. Asthenia 85241236 R53.1 PT OT eval and treatmonit or need for increased support in community Type 1 frank betes mellitus 83497458 E10.9 BS controlled conttresib a 30 units qdSS insulinmon itor glucose and need to titrate Hypertensive disorder 38 589774 I10 stable on below regimennor vasc 10 mg qdcoreg 6.25 mg bidlosarta n 100 mg qdcurrentl y elevatedmo nitor need for increased control 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 440398 E06.3 hx of added to PMHmaintai priscilla onsynthroi d 112 mcg qdmonitor tsh prn Gastroesop hageal reflux disease 840802339 K21.9 nexium 40 mg qd continuedm onitor for effect Obesity 429401106 E66.09 dietary eval in patient with baseline DM Rheumatoid arthritis 698 82394 M06.9 remains onenbrel 50 mg q friday Irritable bowel syndrome 07079980 K58.9 ? IBSlinzess 290 mcg q ammonitor Coronary arteriosclerosis 42782267 I25.10 hx of MIatorvast atin 20 mg po dailyclopi dogrel 75 mg po q amsee above htn medsmonito r Recurrent falls 66728511 2 R29.6 reports history of falls with electrical experimental mechanic at home to help her and balance issuesrepo rts more than 5 falls/year supportive caremonito r Primary insomnia 2701849 F51.01 continueme latoninmon itor need to titrate Abnormal weight loss 267 299271 R63.4 weight dropped > 12 lbs in a few days from admitappea rs to be error in initial intake weight6/5 reweigh pt todaywill monitor Acute cystitis 93346507 N30.00 now on cefpodoxim e to complete courseaysm ptomaticmo nitor for recurrent disease [id number] Dori Pena NP [facility] [address] [address] 09/29/2023 10:39:23 10/03/2023 11:24:38 Closed fracture of multiple left ribs 6572981234 2229336 S22.42XG with multiple rib fractures and clavicular [...] to left shoulderad just as needed. Asthenia 35638606 R53.1 PT OT eval and treatmonit or need for increased support in community Type 1 frank betes mellitus 70689016 E10.9 BS controlled conttresib a 30 units qdSS insulinmon itor glucose and need to titrate Hypertensive disorder 38 720354 I10 stable on below regimen with slightly high bp likley related to pain, monitorcon tnorvasc 10 mg qdcoreg 6.25 mg bidlosarta n 100 mg qdcurrentl y elevatedmo nitor need for increased control 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 526976 E06.3 hx of added to PMHmaintai priscilla onsynthroi d 112 mcg qdmonitor tsh prn Gastroesop hageal reflux disease 745943209 K21.9 contnexium 40 mg qdmonitor for effect Obesity 874656008 E66.09 dietary evalbaseli ne DMweight today please Rheumatoid arthritis 698 76376 M06.9 remains onenbrel 50 mg q friday Irritable bowel syndrome 45467296 K58.9 ? IBSlinzess 290 mcg q ammonitor Coronary arteriosclerosis 03817255 I25.10 hx of MIatorvast atin 20 mg po dailyclopi dogrel 75 mg po q amsee above htn medsmonito r Recurrent falls 78127458 2 R29.6 reports history of falls with electrical experimental mechanic at home to help her and balance issuesrepo rts more than 5 falls/year supportive caremonito r Primary insomnia 0830898 F51.01 continueme latoninmon itor need to titrate Abnormal weight loss 267 052343 R63.4 weight dropped > 12 lbs in a few days from admitappea rs to be error in initial intake weight6/10 reweigh pt todaywill monitor Acute cystitis 42491953 N30.00 resolved cefpodoxim e to complete courseaysm ptomaticmo nitor for recurrent disease Mixed anxi ety and depressive disorder 720453783 F41.8 contaripip razole 20 mg dailyvenla faxine 150 mg po dailyprazo sin 6 mg po qhsmelaton in 3 mg po qhshydroxy zine 10 mg po q 8 hours prn anxiety6/1 0 renew clonazepam 0.5 mg po q 8 hours prn anxietymon itor [id number] Dori Pena NP [facility] [place] [address] [place] [address] 10/02/2023 13:28:32 10/07/2023 10:08:18 Hypertensive disorder 41422962 I10 stable on below regimen as it comes down to 120s systolic post medication contnorvas c 10 mg qdcoreg 6.25 mg bidlosarta n 100 mg qdmonitor need for increased control Closed fra cture of multiple left ribs 5557692211 1240417 S22.42XG with left rib fxs 2-6 with [...] OT eval and txadjust as needed. Asthenia 65639969 R53.1 PT OT eval and treatmonit or need for increased support in community Type 1 frank betes mellitus 84247810 E10.9 BS controlled glucernaco nttresiba 30 units qdSS insulinmon itor glucose and need to titrate Gastroesop hageal reflux disease 068669730 K21.9 contnexium 40 mg qdmonitor for effect Rheumatoid arthritis 698 85425 M06.9 remains onenbrel 50 mg q friday Irritable bowel syndrome 29049384 K58.9 ? IBSlinzess 290 mcg q ammonitor Coronary arteriosclerosis 93650429 I25.10 hx of MIcoreg 6.25 mg po bidatorvas tatin 20 mg po dailyclopi dogrel 75 mg po q amsee above htn medsmonito r Recurrent falls 45557098 2 R29.6 reports history of falls with electrical experimental mechanic at home to help her and balance issuesrepo rts more than 5 falls/year supportive care and therapy here for balance, strengthen ing, gait, mobility, endurancem onitor Abnormal weight loss 267 667681 R63.4 weight dropped > 12 lbs in a few days from admitappea rs to be error in initial intake weight09/28 reweigh pt today10/01 reweight pt today, no weight since 09/21will monitor Mixed anxi ety and depressive disorder 713978387 F41.8 contaripip razole 20 mg dailyvenla faxine 150 mg po dailyprazo sin 6 mg po qhsmelaton in 3 mg po qhshydroxy zine 10 mg po q 8 hours prn anxiety09/19 0 renew clonazepam 0.5 mg po q 8 hours prn anxiety x 14 days10/01 cont as abovemonit or [id number] [facility] [address] 10/06/2023 12:02:36 10/09/2023 09:34:42 Closed fracture of multiple left ribs 2572389909 2795718 S22.42XG with left rib fxs 2-6 with [...] txadjust as needed. Abnormal weight loss 267 530826 R63.4 weight dropped > 12 lbs in a few days from admitappea rs to be error in initial intake weight10/04 160 lbs which is same as 09/22/23will monitor Hypertensive disorder 38 285972 I10 stable on below regimen as it comes down to 120s systolic post medication contnorvas c 10 mg qdcoreg 6.25 mg bidlosarta n 100 mg qdmonitor need for increased control Asthenia 29888117 R53.1 PT OT eval and treatmonit or need for increased support in community Type 1 frank betes mellitus 42855514 E10.9 pt having syrup and gingerale at [...] and need to titrate Rheumatoid arthritis 698 64661 M06.9 remains onenbrel 50 mg q friday Irritable bowel syndrome 98978244 K58.9 with constipati on today, states many days10/05 mon given today, will do supp if no bm by 4 pm10/05 start senna 8.6 mg po daily? IBSlinzess 290 mcg q ammonitor Coronary arteriosclerosis 99114281 I25.10 hx of MIcoreg 6.25 mg po bidatorvas tatin 20 mg po dailyclopi dogrel 75 mg po q amsee above htn medsmonito r Mixed anxi ety and depressive disorder 729248855 F41.8 contaripip razole 20 mg dailyvenla faxine 150 mg po dailyprazo sin 6 mg po qhsmelaton in 3 mg po qhshydroxy zine 10 mg po q 8 hours prn anxiety6/1 0 renew clonazepam 0.5 mg po q 8 hours prn anxiety x 14 days10/01 cont as above10/05 stable today with above planmonito r [id number] Dori Pena NP [address] [address] 10/08/2023 11:40:06 10/15/2023 15:50:32 Type 1 diabetes mellitus 20428415 E10.9 pt having syrup and gingerale at [...] and need to titrate Irritable bowel syndrome 45244331 K58.9 with constipati on resolved with mom on 7 fri given today10/05 start senna 8.6 mg po daily? IBSlinzess 290 mcg q am10/07 having bm regularly nowmonitor Closed fra cture of multiple left ribs [id number] S22.42XG with left rib fxs 2-6 with [...] txadjust as needed. Abnormal weight loss 267 945987 R63.4 weight dropped > 12 lbs in a few days from admitappea rs to be error in initial intake weight10/04 160 lbs which is same as 09/22/23, ? incorrect admit weight but seems stable the [facility] monitor Hypertensive disorder 38 678619 I10 stable on below regimen as it comes down to 120s systolic post medication contnorvas c 10 mg qdcoreg 6.25 mg bidlosarta n 100 mg qdmonitor need for increased control Asthenia 18048651 R53.1 PT OT eval and treatmonit or need for increased support in community Rheumatoid arthritis 698 29088 M06.9 remains onenbrel 50 mg q friday Coronary arteriosclerosis 30145551 I25.10 hx of MIcoreg 6.25 mg po bidatorvas tatin 20 mg po dailyclopi dogrel 75 mg po q amsee above htn medsmonito r Mixed anxi ety and depressive disorder 565152717 F41.8 contaripip razole 20 mg dailyvenla faxine 150 mg po dailyprazo sin 6 mg po qhsmelaton in 3 mg po qhshydroxy zine 10 mg po q 8 hours prn anxiety09/19 0 renew clonazepam 0.5 mg po q 8 hours prn anxiety x 14 days10/01 cont as above10/05 stable today with above plan10/07 stable today with above planmonito r Hyperkalemia 16891139 E8 7.5 k of 5.7 on give kayexalate 15 gm today10/08 bmp in ammonitor for additional e lyte abbormalit ies [id number] Dori Pena NP [address] [address] 10/09/2023 13:08:06 10/15/2023 16:27:22 Closed fracture of multiple left ribs [id number] 9906475 S22.42XG resolving with left rib fxs 2-6 [...] prnadjust as needed outpt with pcp Hyperkalemia 44266490 E8 7.5 k of 5.7 on give kayexalate 15 gm on 10/07monito r for additional e lyte abnormalit ies outpt with pcp Type 1 frank betes mellitus 40641451 E10.9 BS slightly high while at rehab with eating sugary foods/drin ksPlan: diet sodas and diet syrup and less sugary choicescon tglucernat resiba 30 units qdSS insulin with meals as per home schedmonit or glucose and need to titrate outpt with pcp outpt Irritable bowel syndrome 36796559 K58.9 with constipati on resolvedse nna 8.6 mg po daily (started at rehab)? IBSlinzess 290 mcg q ammonitor with pcp outpt Abnormal weight loss 267 301477 R63.4 weight dropped > 12 lbs in a few days from admitappea rs to be error in initial intake weight10/04 160 lbs which is same as 09/22/23, ? incorrect admit weight but seems stable nowmonitor oupt with pcp Hypertensive disorder 38 341767 I10 stable on below regimen as it comes down to 120s systolic post medication contnorvas c 10 mg qdcoreg 6.25 mg bidlosarta n 100 mg qdmonitor need for increased control outpt with pcp Asthenia 37510552 R53.1 PT OT eval and treat outpt prnmonitor need for increased support in community with pcp Rheumatoid arthritis 698 86037 M06.9 remains onenbrel 50 mg q fridaymoni tor outpt with pcp Coronary arteriosclerosis 15720530 I25.10 hx of MIcoreg 6.25 mg po bidatorvas tatin 20 mg po dailyclopi dogrel 75 mg po q amsee above htn medsmonito r outpt wtih pcp Mixed anxi ety and depressive disorder 964618507 F41.8 contaripip razole 20 mg dailyvenla faxine 150 mg po dailyprazo sin 6 mg po qhsmelaton in 3 mg po qhshydroxy zine 10 mg po q 8 hours prn anxietyclo nazepam 0.5 mg po q 8 hours prn anxietymon itor outpt with pcp Gastroesop hageal reflux disease 403138045 K21.9 contnexium 40 mg qdmonitor for effect outpt with pcp Recurrent falls 74636187 2 R29.6 reports history of falls with electrical experimental mechanic at home to help her and balance issuesrepo rts more than 5 falls/year supportive care and therapy here for balance, strengthen ing, gait, mobility, endurance outpt rpnmonitor outpt with pcp 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 215998 E06.3 hx of added to PMHmaintai priscilla onsynthroi d 112 mcg qdmonitor tsh prn with pcp Obesity 333985862 E66.09 dietary evalbaseli ne DMweight to be monitored with pcp outpt Primary insomnia 5815463 F51.01 continueme latoninmon itor need to titrate outpt Acute cystitis 93008251 N30.00 resolved cefpodoxim e to complete courseaysm ptomaticmo nitor for recurrent disease outpt with pcp Health Concerns Section Related Observation LastModified by Organization Detai ls LastModified Time None Recorded Concern Status LastModified by Organization Details LastModified Time None Recorded Advance Directives Directive N: Payers Insurance Date Sequence Insurance Name Policy Number Policy Patten Covered Member ID Patten Member ID Guarantor Name 10/15/2023 1 [facility] - DOS ON OR AFTER 2022 - MEDICARE ADVANTAGE [place] (MEDICARE REPLACEMENT/ADV ANTAGE - PPO) Brandie Luevano [id number] Brandie Luevano Notes Date Note Type Note [...] usually Dori Pena, AAKASH [address], [address], [place], [address], [facility] - [employer] 09/29/2023 11:09:33 10/02/2023 text/html ROS as noted [...] is sitting up in bed with her TOOL REPAIRER BENCH visiting. She has her sling in place [...] usually Dori Pena NP [address], [address], [place], [address], [facility] [employer] 10/02/2023 13:48:50 10/06/2023 text/html ROS as noted in the HPI Pt is seen for an acute rounding visit. Brandie is working here at [facility] and is feeling good and more mobile lately with left sling in place. She continues with therapy and making gains. She was treated for a UTI when she first came to [facility] and denies any urinary symptoms. Nursing [...] usually Dori Pena NP [address], [address], [place], [address], [employer] 10/06/2023 12:26:22 10/08/2023 text/html ROS as noted [...] in a sling for comfort. While at [facility]:She was treated for a UTI when she first came to [facility] and denies any urinary symptoms. Nursing [...] usually Dori Pena NP [address], [address], [place], [address], [employer] 10/08/2023 12:05:52 10/09/2023 text/html ROS as noted [...] in a sling for comfort. While at [facility]:She was treated for a UTI when she first came to [facility] and denies any urinary symptoms. Nursing [...] usually Dori Pena NP [address], [address], [place], [address], [facility] [employer] 10/09/2023 16:50:56 OBGyn Episode No OBEpisode recorded.
[2025-02-10 08:54] LABS: Thyroid Stimulating Hormone 0.10 uIU/mL (0.32-4.0)
== END 2025-02-09 19:49 | disposition home or self-care (01) ==
PROVIDERS: Emergency Provider Student in an Organized Health Care Education/Training Program; PCP Internal Medicine
DX: N39.0 Urinary tract infection, site not specified (principal); E11.65 Type 2 diabetes mellitus with hyperglycemia; E06.3 Autoimmune thyroiditis; D64.9 Anemia, unspecified; K21.9 Gastro-esophageal reflux disease without esophagitis; I25.2 Old myocardial infarction; M81.0 Age-related osteoporosis without current pathological fracture; Z79.899 Other long term (current) drug therapy
CPT/HCPCS: 36415; 74177; 80053; 81001; 84436; 84443; 85025; 87086; 96360; 96361; 99284; 99285; Q9967

== ENCOUNTER 2025-03-03 10:25 | Outpatient (AMB) | payer OTHER, SELFPAY ==
--- NOTE | 2025-03-03 11:08 | MHC.OFFVIS ---
Intake Visit Reasons: Urinary incontinence Intake Note: New patient presents today for initial visit for urinary incontinence Urology Medication:None Blood Thinner:Clopidogrel Antibiotic Allergies:None PVR:0ml Allergies lorazepam (LORAZEPAM) Allergy (Severe, Verified 03/03/25 11:09) DELIRIUM celecoxib (From Celebrex) Allergy (Intermediate, Verified 03/03/25 11:09) ITCHING tramadol (TRAMADOL) Allergy (Intermediate, Verified 03/03/25 11:09) ITCHING zolpidem (Ambien) Allergy (Unknown, Verified 03/03/25 11:09) unknown [facility] Medical History Heart palpitations Hypoglycemia due to insulin Elevated parathyroid hormone Osteoporosis Hyperlipidemia (04/21/1959) Depressive disorder (04/21/1959) Nutritional anemia (04/21/1959) Shortness of breath Hypothyroidism (04/21/1959) Anemia Chronic gastritis NSTEMI (non-ST elevated myocardial infarction) Recurrent falls (12/04/11) Iron deficiency anemia (04/21/1959) Fibromyositis (04/21/1959) Eczema (04/21/1959) High risk medication use Hepatitis C antibody positive in blood Screening for osteoporosis Screening for viral disease Joint swelling Overweight (BMI 25.0-29.9) Neck pain Swelling of knee joint, right Intra-abdominal abscess Diabetes Elevated liver function tests Intestinal malabsorption following gastrectomy Obesity (BMI 30-39.9) 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 Hypertension Cholecystitis Hyperlipidemia, unspecified Essential hypertension Atherosclerotic cardiovascular disease Fibromyalgia Folliculitis Anxiety Depression History of myocardial infarction Diabetes type 1, uncontrolled 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 Mother CVA (cerebral vascular accident) Sister Hypertension Brother Hypertension Liver cancer Social History Household Members: None Housing: Apartment Are you a primary before and after school daycare worker to a significant other at home: No Do you presently have visiting nurse or other home services: Yes Alcohol intake: never Patient Tobacco Use Status: Never used Tobacco Advance Directives Date on File: 09/17/23 service: No Current occupational status: disabled Current occupation: right hand dominant Office Procedures Post Void Residual Post Residual Void Post Void Residual (PVR): 0 29561-Fstc Void Residual by ultrasound Results AMB Urinalysis, Automated UA Leukoctes 15 Ata/uL Last Edit by Gris Woo on 03/03/25 15:44 UA Nitrite Negative Last Edit by Crystal Woo on 03/03/25 15:44 UA Urobilinogen 0.2 mg/dL Last Edit by Gris Woo on 03/03/25 15:44 UA Protein 15 mg/dL Last Edit by Gris Woo on 03/03/25 15:44 UA pH 5.5 Last Edit by Gris Woo on 03/03/25 15:44 UA Blood 0 Mekhi/uL Last Edit by Gris Woo on 03/03/25 15:44 UA Specific [place] 1.020 Last Edit by Gris Woo on 03/03/25 15:44 UA Ketone Negative Last Edit by Gris Woo on 03/03/25 15:44 UA Bilirubin 1 mg/dL Last Edit by Gris Woo on 03/03/25 15:44 UA Glucose 1000 mg/dL Last Edit by Gris Bermudeztiz on 03/03/25 15:44 Results Reviewed Results Reviewed: Date of Service: 02/19/25 Reason for Exam: N20.1 - Calculus of ureter CLINICAL HISTORY: N20.1 - Calculus of ureter CT abdomen and pelvis without contrast Comparison: None provided Findings: The lung bases are clear. There are multiple circumscribed hepatic lesions, incompletely evaluated on the current exam. The gallbladder and solid organs are otherwise within normal limits. No renal stones. No bowel obstruction, pneumoperitoneum, or pneumatosis. There is a Padilla catheter in position. Urinary bladder wall is concentrically thickened. Correlate for cystitis. Pelvic contents otherwise unremarkable. Normal appendix. No acute fracture. IMPRESSION: 1. Urinary bladder wall changes possibly related to cystitis. Clinical follow-up recommended. 2. Indeterminate hepatic lesions. Consider sonography to further characterize. Assessment & Plan Assessment & Plan Orders: Orders AMB Post Void Residual by ultrasound Today R32 - Unspecified urinary incontinence AMB Urinalysis Automated Today Z13.9 - Encounter for screening, unspecified Medications: New phenazopyridine (Azo Urinary Pain Relief) Must administer with food 99.5 mg PO Q8H PRN 20 tabs 0RF pain ciprofloxacin HCl 500 mg PO BID 10 tabs 0RF 5 days Coding CPT Codes Post Residual Void - PVR CPT Code: 60719-Giyj Void Residual by ultrasound ([id number])
--- OUTSIDE RECORDS SUMMARY | 2025-03-03 12:46 | XMS_ITS | Encounter Summary ---
Author Organization [employer] Address [address] [place] [address] Care Team Providers Care Chemical Plant Operator Name Role Phone Pascual Daly MD Primary Care Provide r Fani Heck PharmD Unavailable [phone] Dasia Waters PharmD Unavailable [phone] Reason for Visit * Reason Comments Med Refill Encounter Details Date Type Department Care Team ([facility] st Contact Info) Description 09/26/2023 Refill [facility] MEDICINE [address] [place] [address] Pascual Daly MD [address] [place] [address] Social History Tobacco Use Types Packs/Day Years [...] Care Team (Late st Contact Info) Description 04/29/2025 10:00 AM EST Clinical Support [facility] MEDICINE [address] [place] [address] Amanda Fernández, AALIYAH [address] [place] [address] 08/24/2025 10:15 AM EDT Office Visit [facility] ADULT DENTAL [address] [place] [address] Kandy, Gabriela [address] [place] [address] documented as of this encounter Goals Goal Patient Goal Type Associated Problems Recent Progress Patient-Stated? Author Blood Pressure < 140/90 Blood Pressure 140/84( 025 10:32 AM EDT) No Fani Heck, PharmD documented as of this encounter Visit Diagnoses Not on filedocumented in this encounter Additional Health Concerns Assessment Noted Time PHQ-9 Depression Total Score: 11 024 10:24 AM EST documented as of this encounter Care Teams Chemical Plant Operator Relationship Specialty Start Date End Date Pascual Daly MD [address] [place] [address] PCP - General Internal Medicine 02/22/14 Fani Heck, PharmD [address] [place] [address] Pharmacist Internal Medicine 12/16/22 08/15/24 Dasia Waters, Woody [address] [place] [address] Pharmacist Internal Medicine 08/16/24 01/16/25 Sulphur A 12/18/24 documented as of this encounter
--- OUTSIDE RECORDS SUMMARY | 2025-03-03 12:46 | XMS_ITS | Encounter Summary ---
Author Organization [employer] Address [address] [facility] [address] [place] [address] Care Team Providers Care Plastics Fitter Name Role Phone Pascual Daly MD Primary Care Provide r Fani Heck PharmD Unavailable [phone] Dasia Waters PharmD Unavailable [phone] Encounter Details Date Type Department Care Team (Late st Contact Info) Description 09/25/2023 Telephone [facility] MEDICINE [address] [place] [address] Pascual Daly MD [address] [place] [address] Social History Tobacco Use Types Packs/Day Years [...] Description 04/29/2025 10:00 AM EST Clinical Support [facility] MEDICINE [address] [place] [address] Amanda Fernández, AALIYAH [address] [place] [address] 08/24/2025 10:15 AM EDT Office Visit [facility] ADULT DENTAL [address] [place] [address] Kandy, Gabriela [address] [place] [address] documented as of this encounter Goals Goal [...] documented as of this encounter Care Teams Plastics Fitter Relationship Specialty Start Date End Date Pascual Daly MD [address] [place] [address] PCP - General Internal Medicine 02/22/14 Fani Heck, PharmD [address] [place] [address] Pharmacist Internal Medicine 12/16/22 08/15/24 Dasia Waters, KristiD [address] [place] [address] Pharmacist Internal Medicine 08/16/24 01/16/25 Iker MARCUSA 12/18/24 documented as of this encounter
--- OUTSIDE RECORDS SUMMARY | 2025-03-03 12:46 | XMS_ITS | Encounter Summary ---
Author Organization [employer] Address [address] [facility] [address] [place] [address] Care Team Providers Care Registered Nurse Practitioner Name Role Phone Pascual Daly MD Primary Care Provide r Dasia Waters PharmD Unavailable [phone] Reason for Visit * Reason Onset Date Comments Med Refill 08/31/2024 Encounter Details Date Type Department Care Team ([facility] st Contact Info) Description 08/31/2024 Telephone [facility] MEDICINE [address] [place] [address] Pascual Daly MD [address] [place] [address] Med Refill Social History Tobacco Use Types [...] immediate release tablet To be sent to: [facility] documented in this encounter Plan of Treatment Upcoming Encounters Date Type Department Care Team (Late st Contact Info) Description 04/29/2025 10:00 AM EST Clinical Support [facility] MEDICINE [address] [place] [address] Amanda Fernández RN [address] [place] [address] 08/24/2025 10:15 AM EDT Office Visit [facility] ADULT DENTAL [address] [place] [address] Gabriela Gaitan [address] [place] [address] documented as of this encounter Goals Goal Patient Goal Type Associated Problems Recent Progress Patient-Stated? Author Blood Pressure < 140/90 Blood Pressure 140/84(10/30/2 025 10:32 AM EDT) No Fani Heck, KristiD documented as of this encounter Visit Diagnoses Not on filedocumented in this encounter Additional Health Concerns Assessment Noted Time PHQ-9 Depression Total Score: 9 01/29/20 24 11:00 AM EDT documented as of this encounter Care Teams Registered Nurse Practitioner Relationship Specialty Start Date End Date Pascual Daly MD [address] [place] [address] PCP - General Internal Medicine 02/22/14 Dasia Waters PharmD [address] [place] [address] Pharmacist Internal Medicine 08/16/24 01/16/25 Iker MARCUSA 12/18/24 documented as of this encounter
--- OUTSIDE RECORDS SUMMARY | 2025-03-03 12:46 | XMS_ITS | Data Portability ---
Author Organization [employer] [facility] Address [address] [place] [address] Care Team Providers Care Irrigator Valve Pipe Name Role Phone [facility] Referring Provider [phone] Assessment Encounter Date Assessment Date Assessment LastModified by Organization Details LastModified Time 04/11/2023 04/11/2023 I provided real -time medical direction via phone for this encounter, and was available for additional phone based assistance as needed. I have reviewed and agree with the Assessment and Plan as documented by the Darklight Inspector. Patient given the opportunity to ask questions. Advised to call for another visit over the weekend if not improving in 2 to 3 days however if develops CP/severe SOB/turning blue/uncontrolle d n/v/d or black/bloody emesis or stool/ AMS/ syncope/ hi fever unresponsive to APAP to call 911- verbalized understanding of instructions [email or web address] Not available 04/12/2023 10:53:05 Plan of Treatment [...] Not available Not available Not available 04/11/2023 04565 5 RxNorm Anitha Camacho MD [address] [facility], [place], [address] , [employer] 14:49:47 4127 Celebrex medicatio n Not available Not available Not available 04/11/2023 80399 7 Forrest Camacho MD [address] [facility],[address], [place], [address], [employer] 14:49:57 4128 tramadol medicatio n Not available Not available Not available 04/11/2023 01778 Forrest Camacho MD [address] [facility],[address], [place], [address], [employer] 14:50:04 Medications Name Sig Start Date Stop [...] Available Not Available No t Available [employer] [place] Lite kit USE DIRECTED active Not Available [...] Updated DateTime 3 97 % 97 % 44805.5 36 g 18 /min 97.8 [degF] 88 /min 167/84 mm[Hg] Not Available [employer] - production 3 14:49:26 Social History None [...] ICD10 Code Diagnosis IMO Codes Diagnosis Note [id number] Anitha Camacho MD Main - [facility] [address] [place] [phone] 04/11/2023 14:49:23 08/20/2024 13:15:45 Respiratory syncytial virus infection [id number] B97.4 Continue medication s as prescribed ., [...] Patten Member ID Guarantor Name 08/20/2024 1 [facility] - DOS ON OR AFTER 2022 - DUAL ELIGIBLE - JAIL OPTIONS AND ONE CARE (MEDICARE REPLACEMENT/ADV ANTAGE - HMO) Brandie Santana [id number] Brandie Ryanyes Notes Date Note Type Note Provider Name and Address Organization Details Recorded Time 04/11/2023 text/html ROS as noted in the HPI HPI: 73 year old, Congolese speaking member, F, with hx of DM, HTN, Asthma, Depression, hx of falls and chronic pain, reporting worsesing Productive cough, shortness of breath with activities and fatigue, worsening head aches, treated at [facility] on 04/10/23 and dx with RSV. Reported has fever and chills, believes her BP is high. Her BOAT DESIGNER worker is with her and member asked [...] .................. .................. .................. .................. .................. .................. ............... Darklight Inspector Note From Teddy Miranda: Pt sts dis not call for [employer]. [facility] set up appt. Pt was in ER yesterday diagnosed with RSV treated RX for ventalin and prednisone. Pt denies cp sob fever nausea diarrhea. Baseline vitals assessed. Lungs clear. No edema. [facility] contacted ..pt declined benzonatate. Pt advised self care and continue with RX meds. Pt education on signs indicating the ER. Darklight Inspector Allergies: Lorazepam .................. .................. .................. .................. .................. .................. .................. ............... Disposition: Fulfilled Comments: Reviewed - Johana RNSEGMD: Patient seen yesterday evening [facility]. COvid negative per patient/ RSV +/She is using her albuterol every 4 hours. She is on prednisone. No nausea vomiting.Pat has hx that includes but not limited to: DM2/COPD/HTN/Fe deficiency anemia/hypothyroid ism/MDD with psychotic features/obesity status post laparoscopic gastrectomy/positi ve SUSAN/fibromyalgia. Anitha Camacho MD [address] [facility],[address], [place], [address], [place] [employer] 04/12/2023 10:53:56 OBGyn Episode No OBEpisode recorded.
--- OUTSIDE RECORDS SUMMARY | 2025-03-03 12:46 | XMS_ITS | Clinical Summary ---
Author Organization [facility] Address [address] [place] [address] Phone Care Team Providers Care Water Resource Specialist Name Role Phone Pascual Darnell MD Primary Care Provi chio Allergies Active Allergy Reactions Criticality Noted Date Comments Clonazepam 09/02/2024 Medications No known medications Social History Tobacco Use Types Packs/Day Years [...] [facility] st Contact Info) Description 03/15/2025 10:15 AM EST Office Visit Orthopedic Surgery [place] [id number] [phone] Luciano Smith, DPM [address] [address] Health Maintenance Due Date Last [...] Procedure Name Priority Date/Time Associated Diagnosis Comments COMPREHENSIVE METABOLIC PANEL Routine 11/24/2024 6:16 AM EDT Type 1 diabetes mellitus with hyperglycemia ([facility], [facility]) Old myocardial infarction Essential (primary) hypertension Vitamin D deficiency, unspecified HEMOGLOBIN A1C Routine 11/24/2024 6:16 AM EDT Type 1 diabetes mellitus with hyperglycemia ([facility], [facility] V[facility]) Old myocardial infarction Essential (primary) hypertension Vitamin D deficiency, unspecified from Last 3 Months or Most Recently Relevant to Health Maintenance Results * (ABNORMAL) Hemoglobin A1c (11/24/2024 6:16 AM EDT) Hemoglobin A1C 8.9(H) <6.5 % LAB CHEMISTRY METHOD 11/24/2024 12:[address] [facility] Mean Bld Glu Estim. 209 mg/dL LAB CHEMISTRY METHOD 11/24/2024 12:[address] [facility] Blood Venous blood specimen / Unknown Venipuncture / Unknown 11/24/2024 6:16 AM EDT 11/24/2024 10:24 AM EDT us Vero Mike MD LAB BLOOD ORDERABLES Final Resul t [facility] [address] [place] [address], [place] [phone] * (ABNORMAL) Comprehensive metabolic panel (11/24/2024 6:16 AM EDT) Sodium 138 133 - 145 mmol/L LAB CHEMISTRY METHOD 11/24/2024 11:[address] [facility] Potassium 4.5 3.5 - 5.5 mmol/L LAB CHEMISTRY METHOD 11/24/2024 11:35 AM [facility] Chloride 104 96 - 110 mmol/L LAB CHEMISTRY METHOD 11/24/2024 11:35 AM [facility] CO2 28 21 - 32 mmol/L LAB CHEMISTRY METHOD 11/24/2024 11:35 AM [facility] Anion Gap 6 3 - 11 LAB CHEMISTRY METHOD 11/24/2024 11:35 AM [facility] Glucose 77 70 - 100 mg/dL LAB CHEMISTRY METHOD 11/24/2024 11:35 AM [facility] BUN 21 5 - 25 mg/dL LAB CHEMISTRY METHOD 11/24/2024 11:35 AM [facility] Creatinine 0.96 0.50 - 1.10 mg/dL LAB CHEMISTRY METHOD 11/24/2024 11:35 AM [facility] eGFR 62 >=60 mL/min/1. 73m2 LAB CHEMISTRY METHOD 11/24/2024 11:35 AM [facility] Comment:Calculation based on the Chronic Kidney Disease Epidemiology Collaboration (CKD-EPI) equation refit without adjustment for race. BUN/Creatinine Ratio 21.9 LAB CHEMISTRY METHOD 11/24/2024 11:35 AM [facility] Calcium 9.2 8.5 - 10.5 mg/dL LAB CHEMISTRY METHOD 11/24/2024 11:35 AM [facility] AST (SGOT) 18 10 - 42 unit/L LAB CHEMISTRY METHOD 11/24/2024 11:35 AM [facility] ALT (SGPT) 26 10 - 60 unit/L LAB CHEMISTRY METHOD 11/24/2024 11:35 AM [facility] Alkaline Phosphatase 99 42 - 121 unit/L LAB CHEMISTRY METHOD 11/24/2024 11:35 AM [facility] Total Protein 5.6(L) 6.0 - 8.0 g/dL LAB CHEMISTRY METHOD 11/24/2024 11:[address] [facility] Albumin 3.3 3.2 - 5.0 g/dL LAB CHEMISTRY METHOD 11/24/2024 11:[address] [facility] Total Bilirubin 0.3 0.0 - 1.4 mg/dL LAB CHEMISTRY METHOD 11/24/2024 11:[address] [facility] Blood Venous blood specimen / Unknown Venipuncture / Unknown 11/24/2024 6:16 AM EDT 11/24/2024 10:32 AM EDT us Vero Mike MD LAB BLOOD ORDERABLES Final Resul t [facility] [address] [place] [address], from Last 3 Months or Most Recently Relevant to Health Maintenance Insurance [facility] Member Subscriber Plan / Payer (Ef fective 2015-Present) Name:Brandie WILLIS Relation to Subscriber:Self Name:Brandie Santana Payer ID:[id number] Group ID:[id number] Type:Not on file Address: [place] [address] [address] [id number] Care Teams Water Resource Specialist Relationship Specialty Start Date End Date Pascual Darnell MD [address] [place] [id number] PCP - General Internal Medicine 06/18/24
--- OUTSIDE RECORDS SUMMARY | 2025-03-03 12:46 | XMS_ITS | Encounter Summary ---
Author Organization [employer] Address [address] [facility] [address] [place] [address] Care Team Providers Care Banjo Repair Person Name Role Phone Pascual Daly MD Primary Care Provide r Fani Heck PharmD Unavailable [phone] Dasia Waters PharmD Unavailable [phone] Encounter Details Date Type Department Care Team (Late st Contact Info) Description 09/25/2023 Telephone [facility] MEDICINE [address] [place] [address] Pascual Daly MD [address] [place] [address] Social History Tobacco Use Types Packs/Day Years [...] Description 04/29/2025 10:00 AM EST Clinical Support [facility] MEDICINE [address] [place] [phone] Amanda Fernández, AALIYAH [address] [place] [address] 08/24/2025 10:15 AM EDT Office Visit [facility] ADULT DENTAL [address] [place] [phone] Kandy, Gabriela [address] [place] [address] documented as of this encounter Goals Goal [...] documented as of this encounter Care Teams Banjo Repair Person Relationship Specialty Start Date End Date Pascual Daly MD [address] [place] [address] PCP - General Internal Medicine 02/22/14 Fani Heck, KristiD [address] [place] [address] Pharmacist Internal Medicine 12/16/22 08/15/24 Dasia Waters PharmD [address] [place] [address] Pharmacist Internal Medicine 08/16/24 01/16/25 Amoret A 12/18/24 documented as of this encounter
--- OUTSIDE RECORDS SUMMARY | 2025-03-03 12:46 | XMS_ITS | Encounter Summary ---
Author Organization [employer] Address [address] [facility] 7t [place] [address] Care Team Providers Care Pouring Crane Operator Name Role Phone Pascual Daly MD Primary Care Provide r Fani Heck PharmD Unavailable [phone] Dasia Waters PharmD Unavailable [phone] Reason for Visit * Reason Comments Med Refill Encounter Details Date Type Department Care Team ([facility] st Contact Info) Description 03/27/2023 Refill [facility] [address] [place] [address] Titi Gray FNP Major depressive disorder with [...] Description 04/29/2025 10:00 AM EST Clinical Support [facility] MEDICINE [address] [place] [address] Amanda Fernández RN [address] [place] [address] 08/24/2025 10:15 AM EDT Office Visit [facility] ADULT DENTAL [address] [place] [address] Kandy Gabriela [address] [place] [address] documented as of this encounter Goals Goal [...] documented as of this encounter Care Teams Pouring Crane Operator Relationship Specialty Start Date End Date Pascual Daly MD [address] [place] [address] PCP - General Internal Medicine 02/22/14 Fani Heck PharmD [address] [place] [address] Pharmacist Internal Medicine 12/16/22 08/15/24 Dasia Waters, KristiD [address] [place] [address] Pharmacist Internal Medicine 08/16/24 01/16/25 Iker MARCUSA 12/18/24 documented as of this encounter
--- OUTSIDE RECORDS SUMMARY | 2025-03-03 12:46 | XMS_ITS | Encounter Summary ---
Author Organization [employer] Address [address] [facility] [address] [place] [address] Care Team Providers Care Tv Production Assistant Name Role Phone Pascual Daly MD Primary Care Provide r Fani Heck PharmD Unavailable [phone] Dasia Waters PharmD Unavailable [phone] Reason for Visit * Reason Comments Med Refill Encounter Details Date Type Department Care Team (Late st Contact Info) Description 08/26/2023 Refill [facility] [address] [place], [place] [phone] Momo Rizo MD [address] [place] [address] Benign hypertension Social History Tobacco Use Types [...] 10:00 AM EST Clinical Support [facility] MEDIC[facility] [address] [place] [address] Amanda Fernández, AALIYAH [address] [place] [address] 08/24/2025 10:15 AM EDT Office Visit [facility] ADULT DENTAL [address] [place] [address] Kandy, Gabriela [address] [place] [address] documented as of this encounter Goals Goal [...] documented as of this encounter Care Teams Tv Production Assistant Relationship Specialty Start Date End Date Pascual Daly MD [address] [place] [address] PCP - General Internal Medicine 02/22/14 Fani Heck, KristiD [address] [place] [address] Pharmacist Internal Medicine 12/16/22 08/15/24 Dasia Waters PharmD [address] [place] [address] Pharmacist Internal Medicine 08/16/24 01/16/25 [place] A 12/18/24 documented as of this encounter
--- OUTSIDE RECORDS SUMMARY | 2025-03-03 12:46 | XMS_ITS | Encounter Summary ---
Author Organization [employer] Address [address] [facility] [address] [place] [address] Care Team Providers Care Livestock Farmer Name Role Phone Pascual Daly MD Primary Care Provide r Dasia Waters PharmD Unavailable [phone] Reason for Visit * Reason Onset Date Comments Med Refill 09/30/2024 Encounter Details Date Type Department Care Team ([facility] st Contact Info) Description 09/30/2024 Telephone [facility] MEDICINE [address] [place] [address] Pascual Daly MD [address] [place] [address] Med Refill Social History Tobacco Use Types [...] immediate release tablet To be sent to: [facility] documented in this encounter Plan of Treatment Upcoming Encounters Date Type Department Care Team (Late st Contact Info) Description 04/29/2025 10:00 AM EST Clinical Support [facility] MEDICINE [address] [place] [address] Amanda Fernández RN [address] [place] [address] 08/24/2025 10:15 AM EDT Office Visit [facility] ADULT DENTAL [address] [place] [address] Gabriela Gaitan [address] [place] [address] documented as of this encounter Goals Goal [...] as of this encounter Care Teams Livestock Farmer Relationship Specialty Start Date End Date Pascual Daly MD [address] [place] [address] PCP - General Internal Medicine 02/22/14 Dasia Waters PharmD [address] [place] [address] Pharmacist Internal Medicine 08/16/24 01/16/25 Iker MARCUSA 12/18/24 documented as of this encounter
--- OUTSIDE RECORDS SUMMARY | 2025-03-03 12:46 | XMS_ITS | Data Portability ---
Author Organization [facility], Main Office Address [address] [facility] [place] [address] Care Team Providers Care Tree Marker Name Role Phone MARII MASSEY Primary Care Provider [facility] - 2ND FLOOR OTHER Assessment No assessment recorded. Plan of Treatment Reminders Order Date Submit Date Provider Last Modified By Organization Details Last Modified Time Details Appointments None recorded. Lab None recorded. Referral None recorded. Procedures None recorded. Surgeries None recorded. Imaging None recorded. Medication Orders oxycodone 5 mg tablet 2023 024 [facility] , [address] [place] [address], [address], 4 21:23:28 oxycodone 5 mg tablet 2023 024 [facility] , [address] [place] [address], [address], 4 13:28:18 Patient TargetsNo targets recorded. Patient InstructionsNo instructions recorded. Reason for Referral None Reported. 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 2023 Dori Pena NP [address] [facility], [place], [address], [facility] 4 15:49:21 Hypertensive disorder 43013531 Active 2023 Dori Pena NP [address], [place], [address], [facility] 4 15:49:57 Gastroesophage al reflux disease 102797209 Active 2023 Dori Pena NP [address], [place], [address], [facility] 4 15:51:24 Rheumatoid arthritis 89183082 Active 2023 Dori Pena NP [address], [place], [address], [facility] 4 15:51:29 Mixed anxiety and depressive disorder 224587438 Active 2023 Dori Pena NP [address], [place], [address], [facility] 4 15:51:45 Obesity 381273513 Active 2023 Dori Pena NP [address], [place], [address], [facility] 4 15:51:51 Closed flail chest 989755934 Active 2023 Dori Pena NP [address], [place], [address], [facility] 4 15:52:35 Asthenia 25415069 Active 2023 Dori Pena NP [address], [place], [address], [facility] 4 15:52:46 Irritable bowel syndrome 21253281 Active 2023 Dori Pena NP [address], [place], [address], [facility] 4 16:06:46 Recurrent falls 283050422 Active 2023 Dori Pena NP [address], [place], [address], [facility] 4 16:38:03 Problem Notes None recorded. Procedures Surgical History Date Name Laterality Status Provider Name and Address Organization Details Recorded Time bypass gastroenterostomy completed Dori Pena NP [address] [facility], [place], [address], [facility] 09/17/2023 15:40:41 Laparoscopic cholecystectomy completed Dori Pena NP [address] [facility], [place], [address], [facility] 09/17/2023 15:41:25 fixed suspension procedure of urinary bladder neck completed Dori Pena NP [address] [facility], [place], [address], [facility] 09/17/2023 15:42:01 Appendectomy completed Dori Pena NP [address] [facility], [place], [address], [facility] 09/17/2023 15:42:11 bilateral cataract surgery completed Dori Pena NP [address] [facility], [place], [address], [facility] 09/17/2023 15:42:26 Imaging Results None recorded. Procedure Notes None recorded. Medical Equipment None Reported. Allergies Allergen ID Allergen Name Allergen Category Reaction Reaction Severity Criticality Documentation Date Start Date Code Code System Note Provider Name and Address Organization Details Recorded Time 04859 celecoxib medicatio n other Not available unabletoasse 09/17/2023 33382 7 RxNorm unkno wn Dori Pena NP [address] [facility], [place], [address], [facility] 4 15:37:14 36159 lorazepam medicatio n other Not available unabletoasse 09/17/2023 6470 RxNorm unkno wn Dori Pena NP [address] [facility], [place], [address], [facility] 4 15:37:29 25204 tramadol medicatio n other Not available unabletoasse 09/17/2023 34229 RxNorm unkno wn Dori Pena NP [address] [facility], [place], [address], [facility] 4 15:37:42 18981 zolpidem medicatio n other Not available unabletoasse 09/17/2023 01648 RxNorm unkno wn Dori Pena NP [address] [facility], [place], [address], [facility] 4 15:37:56 Medications Name Sig Start Date [...] Address Organization Details Last Updated DateTime 4 14289.7 8 g 98 /min 18 /min 97.8 [degF] 94 % 94 % 150/77 mm[Hg] Dori Pena NP [address] [facility], [place], [address], [facility] 4 10:49:41 Date Recorded Body weight Heart rate Respiratory rate Body temperature Oxygen saturation Oxygen saturation in Arterial blood by Pulse oximetry Systolic And Diastolic Provider Name and Address Organization Details Last Updated DateTime 4 26593.7 8 g 83 /min 18 /min 97 [degF] 98 % 98 % 148/74 mm[Hg] Dori Pena NP [address] [facility], [place], [address], [facility] 4 13:29:12 Date Recorded Body weight Heart rate Respiratory rate Body temperature Oxygen saturation Oxygen saturation in Arterial blood by Pulse oximetry Systolic And Diastolic Provider Name and Address Organization Details Last Updated DateTime 4 61224.7 8 g 76 /min 18 /min 97.8 [degF] 97 % 97 % 128/78 mm[Hg] Dori Pena NP [address] [facility], [place], [address], [facility] 4 12:05:35 Date Recorded Body weight Heart rate Respiratory rate Body temperature Oxygen saturation Oxygen saturation in Arterial blood by Pulse oximetry Systolic And Diastolic Provider Name and Address Organization Details Last Updated DateTime 4 15577 g 80 /min 18 /min 98 [degF] 95 % 95 % 111/60 mm[Hg] Dori Pena NP [address] [facility], [place], [address], [facility] 4 11:40:36 Date Recorded Body weight Heart rate Respiratory rate Body temperature Oxygen saturation Oxygen saturation in Arterial blood by Pulse oximetry Systolic And Diastolic Provider Name and Address Organization Details Last Updated DateTime 4 70834 g 74 /min 18 /min 98.4 [degF] 95 % 95 % 124/68 mm[Hg] Dori Pena NP [address] [facility] [facility] [address], [place], [address], [facility] 4 13:12:09 Social History Question Answer Notes LastModified by [employer] [facility] Details LastModified Time Tobacco Smoking Status Never Smoker Dori Pena NP [address] [facility], [facility] [address], [place], [address], [facility] 09/17/2023 15:39:38 Do You Have An [...] Functional Status Question Answer Note LastModified by [employer] Details LastModified Time Do you use any [...] (RSV) vaccine, unspecified 4 completed [facility] 09/19/2023 16:11:12 Tdap 4 completed [facility] 09/19/2023 16:11:26 Td(adult) unspecified formulation 3 completed [facility] 09/19/2023 16:11:43 Td(adult) unspecified formulation 3 completed [facility] 09/19/2023 16:11:51 Pneumococcal conjugate PCV 13 6 completed [facility] 09/19/2023 16:12:53 Pneumococcal conjugate PCV20, polysaccharide [id number] conjugate, adjuvant, PF 4 completed [facility] 09/19/2023 16:13:07 pneumococcal polysaccharide PPV23 1 completed [facility] 09/19/2023 16:13:22 pneumococcal polysaccharide PPV23 4 completed [facility] 09/19/2023 16:13:31 influenza, unspecified formulation 2 completed [facility] 09/19/2023 16:13:47 influenza, unspecified formulation 3 completed [facility] 09/19/2023 16:13:55 MMR 8 completed [facility] 09/19/2023 16:14:21 SARS-COV-2 (COVID-19) vaccine, UNSPECIFIED 1 completed [facility] 09/19/2023 16:15:58 SARS-COV-2 (COVID-19) vaccine, UNSPECIFIED 1 completed [facility] 09/19/2023 16:16:13 SARS-COV-2 (COVID-19) vaccine, UNSPECIFIED 1 completed [facility] 09/19/2023 16:16:27 SARS-COV-2 (COVID-19) vaccine, UNSPECIFIED 2 completed [facility] 09/19/2023 16:17:15 SARS-COV-2 (COVID-19) vaccine, UNSPECIFIED 2 completed [facility] 09/19/2023 16:21:38 zoster, unspecified formulation 5 completed [facility] 09/19/2023 16:23:04 zoster, unspecified formulation 9 [facility] 16:23:18 zoster, unspecified formulation 9 completed [facility] 09/19/2023 16:25:18 Past Encounters Encounter ID Performer Location Encounter Start Date Encounter Closed Date Diagnosis/Indication Diagnosis SNOMED-CT Code Diagnosis ICD10 Code Diagnosis IMO Codes Diagnosis Note [id number] Dori Pena NP [address] [address] 09/17/2023 15:22:09 09/23/2023 14:50:24 Closed flail chest 346805535 S22.5XXD with multiple rib fractures and clavicular [...] If stable no further workup needed. Asthenia 47278353 R53.1 with notable weakness due to injuryPT OT eval and treatsuppo rtive caremonito r Type 1 frank betes mellitus 34710418 E10.9 tresiba 30 unit sc qhsinsulin 2-14 SSI sc qidhsmonit or BS and adjust as needed Hypertensive disorder 38 896333 I10 not on meds for thisamlodi pine 10 mg po dailylosar zaragoza 100 mg po dailymonit or bp/vitals 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 966972 E06.3 levothyrox ine 112 mcg dailymonit or tsh as needed Gastroesop hageal reflux disease 535799755 K21.9 esomeprazo le 40 mg o daily Obesity 870235448 E66.9 logistics operations director to consultsup portive careportio n controlmon itor weight Mixed anxi ety and depressive disorder 843576870 F41.8 aripiprazo le 20 mg dailyvenla faxine 150 mg po dailyprazo sin 6 mg po qhsmelaton in 3 mg po qhshydroxy zine 10 mg po q 8 hours prn anxietyclo nazepam 0.5 mg po q 8 hours prn anxietycar vedilol 6.25 mg po bidmonitor Rheumatoid arthritis 698 65723 M06.9 enbrel 50 mg sc q 7dayscalci um citrate 400 mg po bidmonitor for reliefsee pain management above with flail chest Irritable bowel syndrome 18092981 K58.9 ? 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 Asthenia 40773540 R53.1 with notable weakness due to injuryPT OT eval and treatsuppo rtive caremonito r Type 1 frank betes mellitus 64105354 E10.9 A1C 8.8%Contin eu:tresiba 30 unit sc qhsinsulin 2-14 SSI sc qidmonitor BS and adjust as needed Hypertensive disorder 38 930015 I10 amlodipine 10 mg po dailylosar zaragoza 100 mg po dailycoreg 6.25 mg bidmonitor bp/vitals 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 640336 E06.3 levothyrox ine 112 mcg dailymonit or tsh as needed Gastroesop hageal reflux disease 305526913 K21.9 esomeprazo le 40 mg o daily Deficiency anemias 67512 3007 D53.9 folic acidvit [id number] Obesity 469053315 E66.9 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 IBSlinzess 290 mcg q ammonitor Coronary arteriosclerosis 46139913 I25.10 hx of MIatorvast atin 20 mg po dailyclopi dogrel 75 mg po q amsee above htn medsmonito r Recurrent falls 30760894 2 R29.6 reports history of falls with automobile sales consultant at home to help her and balance issuesrepo rts more than 5 falls/year supportive caremonito r [id number] [facility] [address] 09/22/2023 14:27:57 09/29/2023 19:16:34 Closed flail chest 419736292 S22.5XXD with multiple rib fractures and clavicular [...] If stable no further workup needed. Asthenia 47783051 R53.1 with notable weakness due to injuryPT OT eval and treatsuppo rtive caremonito r Type 1 frank betes mellitus 82897427 E10.9 BS 81-252 cwpzczP1S 8.8%contin ue:tresiba 30 unit sc qhsinsulin 2-14 SSI sc qidmonitor BS and adjust as needed Hypertensive disorder 38 517700 I10 improving lately, boderline highcontam lodipine 10 mg po dailylosar zaragoza 100 mg po dailycoreg 6.25 mg bidmonitor bp/vitals 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 533174 E06.3 contlevoth yroxine 112 mcg dailymonit or tsh as needed Gastroesop hageal reflux disease 208431833 K21.9 esomeprazo le 40 mg o daily Deficiency anemias 48882 3007 D53.9 folic acidvit b52zbeibrs Obesity 608546150 E66.9 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 IBSlinzess 290 mcg q ammonitor Coronary arteriosclerosis 28925678 I25.10 hx of MIatorvast atin 20 mg po dailyclopi dogrel 75 mg po q amsee above htn medsmonito r Recurrent falls 23879790 2 R29.6 reports history of falls with automobile sales consultant at home to help her and balance issuesrepo rts more than 5 falls/year supportive caremonito r Acute cystitis 69041513 N30.00 reports dysuria and occassiona l incontinen ce latelyurin e culture returned showing > 100,000 klebsiella pneumo ssp and started on ceftriaxon e 1gram IM and cefpodoxim e 200 mg po bid x 7 days with probiotic by on provider over the weekend.mo nitor [id number] Jonel Alamo MD [address] [address] 09/23/2023 11:01:43 09/29/2023 19:25:59 Closed fracture of multiple left ribs 5770299637 0095618 S22.42XG see HPIleft rib fxs 2-6 with concern for flail chest , with clavicular fxeval by surgery with no interventi on indicatedm onitor respirator y statusutil ize incentive spirometer monitor for pain controlupd ate surgery with concerns Asthenia 74610786 R53.1 PT OT eval and treatmonit or need for increased support in community Type 1 frank betes mellitus 32785131 E10.9 tresiba 30 units qdSS insulinmon itor glucose and need to titrate Hypertensive disorder 38 443317 I10 norvasc 10 mg qdcoreg 6.25 mg bidlosarta n 100 mg qdcurrentl y elevatedmo nitor need for increased control 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 563217 E06.3 hx of added to PMHmaintai priscilla onsynthroi d 112 mcg qdmonitor tsh prn Gastroesop hageal reflux disease 579681047 K21.9 nexium 40 mg qd continuedm onitor for effect Obesity 265448846 E66.09 dietary eval in patient with baseline DM Mixed anxi ety and depressive disorder 863102575 F41.8 carrying dx requiring multiple medication swill continue out patient medication s includinga bility and ativanmoni tor moodpsych eval prn Rheumatoid arthritis 698 44920 M06.9 remains onenbrel 50 mg q brittney Irritable bowel syndrome 51864616 K58.9 ? IBSlinzess 290 mcg q ammonitor Coronary arteriosclerosis 25644513 I25.10 hx of MIatorvast atin 20 mg po dailyclopi dogrel 75 mg po q amsee above htn medsmonito r Recurrent falls 36572884 2 R29.6 reports history of falls with automobile sales consultant at home to help her and balance issuesrepo rts more than 5 falls/year supportive caremonito r Solitary n odule of lung 651266059 R91.1 question right 4 mm upper lobe nodulecons ider repeat scan in 6-12 months Primary insomnia 9388619 F51.01 continue melatoninm onitor need to titrate Abnormal weight loss 267 024371 R63.4 weight dropped > 12 lbs in a few days from admitappea rs to be error in initial intake weightwill monitor Acute cystitis 02174328 N30.00 now on cefpodoxim e to complete coursemoni tor for recurrent disease [id number] Dori Pena NP [facility] [address] 09/24/2023 09:21:20 09/29/2023 19:39:42 Closed fracture of multiple left ribs 0965651259 7021675 S22.42XG with multiple rib fractures and clavicular [...] in am off pmadjust as needed. Asthenia 43959079 R53.1 PT OT eval and treatmonit or need for increased support in community Type 1 frank betes mellitus 15133931 E10.9 BS controlled conttresib a 30 units qdSS insulinmon itor glucose and need to titrate Hypertensive disorder 38 181160 I10 stable on below regimennor vasc 10 mg qdcoreg 6.25 mg bidlosarta n 100 mg qdcurrentl y elevatedmo nitor need for increased control 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 920451 E06.3 hx of added to PMHmaintai priscilla onsynthroi d 112 mcg qdmonitor tsh prn Gastroesop hageal reflux disease 083417141 K21.9 nexium 40 mg qd continuedm onitor for effect Obesity 132537976 E66.09 dietary eval in patient with baseline DM Rheumatoid arthritis 698 64058 M06.9 remains onenbrel 50 mg q friday Irritable bowel syndrome 59294927 K58.9 ? IBSlinzess 290 mcg q ammonitor Coronary arteriosclerosis 97997075 I25.10 hx of MIatorvast atin 20 mg po dailyclopi dogrel 75 mg po q amsee above htn medsmonito r Recurrent falls 40673085 2 R29.6 reports history of falls with automobile sales consultant at home to help her and balance issuesrepo rts more than 5 falls/year supportive caremonito r Primary insomnia 6131988 F51.01 continueme latoninmon itor need to titrate Abnormal weight loss 267 267572 R63.4 weight dropped > 12 lbs in a few days from admitappea rs to be error in initial intake weight6/5 reweigh pt todaywill monitor Acute cystitis 96538695 N30.00 now on cefpodoxim e to complete courseaysm ptomaticmo nitor for recurrent disease [id number] Dori Pena NP [facility] [address] [address] 09/29/2023 10:39:23 10/03/2023 11:24:38 Closed fracture of multiple left ribs 3697067751 1739822 S22.42XG with multiple rib fractures and clavicular [...] to left shoulderad just as needed. Asthenia 73136034 R53.1 PT OT eval and treatmonit or need for increased support in community Type 1 frank betes mellitus 49935516 E10.9 BS controlled conttresib a 30 units qdSS insulinmon itor glucose and need to titrate Hypertensive disorder 38 496424 I10 stable on below regimen with slightly high bp likley related to pain, monitorcon tnorvasc 10 mg qdcoreg 6.25 mg bidlosarta n 100 mg qdcurrentl y elevatedmo nitor need for increased control 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 001392 E06.3 hx of added to PMHmaintai priscilla onsynthroi d 112 mcg qdmonitor tsh prn Gastroesop hageal reflux disease 576174659 K21.9 contnexium 40 mg qdmonitor for effect Obesity 444368560 E66.09 dietary evalbaseli ne DMweight today please Rheumatoid arthritis 698 98210 M06.9 remains onenbrel 50 mg q friday Irritable bowel syndrome 74245652 K58.9 ? IBSlinzess 290 mcg q ammonitor Coronary arteriosclerosis 09670160 I25.10 hx of MIatorvast atin 20 mg po dailyclopi dogrel 75 mg po q amsee above htn medsmonito r Recurrent falls 32775474 2 R29.6 reports history of falls with automobile sales consultant at home to help her and balance issuesrepo rts more than 5 falls/year supportive caremonito r Primary insomnia 9575510 F51.01 continueme latoninmon itor need to titrate Abnormal weight loss 267 852556 R63.4 weight dropped > 12 lbs in a few days from admitappea rs to be error in initial intake weight6/10 reweigh pt todaywill monitor Acute cystitis 06373201 N30.00 resolved cefpodoxim e to complete courseaysm ptomaticmo nitor for recurrent disease Mixed anxi ety and depressive disorder 176882806 F41.8 contaripip razole 20 mg dailyvenla faxine 150 mg po dailyprazo sin 6 mg po qhsmelaton in 3 mg po qhshydroxy zine 10 mg po q 8 hours prn anxiety6/1 0 renew clonazepam 0.5 mg po q 8 hours prn anxietymon itor [id number] Dori Pena NP [facility] [place] [address] [place] [address] 10/02/2023 13:28:32 10/07/2023 10:08:18 Hypertensive disorder 52729630 I10 stable on below regimen as it comes down to 120s systolic post medication contnorvas c 10 mg qdcoreg 6.25 mg bidlosarta n 100 mg qdmonitor need for increased control Closed fra cture of multiple left ribs 8519777795 6217798 S22.42XG with left rib fxs 2-6 with [...] OT eval and txadjust as needed. Asthenia 39689243 R53.1 PT OT eval and treatmonit or need for increased support in community Type 1 frank betes mellitus 23985072 E10.9 BS controlled glucernaco nttresiba 30 units qdSS insulinmon itor glucose and need to titrate Gastroesop hageal reflux disease 946279259 K21.9 contnexium 40 mg qdmonitor for effect Rheumatoid arthritis 698 73677 M06.9 remains onenbrel 50 mg q friday Irritable bowel syndrome 06473634 K58.9 ? IBSlinzess 290 mcg q ammonitor Coronary arteriosclerosis 07210000 I25.10 hx of MIcoreg 6.25 mg po bidatorvas tatin 20 mg po dailyclopi dogrel 75 mg po q amsee above htn medsmonito r Recurrent falls 98834331 2 R29.6 reports history of falls with automobile sales consultant at home to help her and balance issuesrepo rts more than 5 falls/year supportive care and therapy here for balance, strengthen ing, gait, mobility, endurancem onitor Abnormal weight loss 267 769604 R63.4 weight dropped > 12 lbs in a few days from admitappea rs to be error in initial intake weight09/28 reweigh pt today10/01 reweight pt today, no weight since 09/21will monitor Mixed anxi ety and depressive disorder 900939024 F41.8 contaripip razole 20 mg dailyvenla faxine 150 mg po dailyprazo sin 6 mg po qhsmelaton in 3 mg po qhshydroxy zine 10 mg po q 8 hours prn anxiety09/19 0 renew clonazepam 0.5 mg po q 8 hours prn anxiety x 14 days10/01 cont as abovemonit or [id number] [facility] [address] 10/06/2023 12:02:36 10/09/2023 09:34:42 Closed fracture of multiple left ribs 0417172862 7130224 S22.42XG with left rib fxs 2-6 with [...] txadjust as needed. Abnormal weight loss 267 427732 R63.4 weight dropped > 12 lbs in a few days from admitappea rs to be error in initial intake weight10/04 160 lbs which is same as 09/22/23will monitor Hypertensive disorder 38 315238 I10 stable on below regimen as it comes down to 120s systolic post medication contnorvas c 10 mg qdcoreg 6.25 mg bidlosarta n 100 mg qdmonitor need for increased control Asthenia 26308438 R53.1 PT OT eval and treatmonit or need for increased support in community Type 1 frank betes mellitus 86622752 E10.9 pt having syrup and gingerale at [...] and need to titrate Rheumatoid arthritis 698 12842 M06.9 remains onenbrel 50 mg q friday Irritable bowel syndrome 02462151 K58.9 with constipati on today, states many days10/05 mon given today, will do supp if no bm by 4 pm10/05 start senna 8.6 mg po daily? IBSlinzess 290 mcg q ammonitor Coronary arteriosclerosis 29379754 I25.10 hx of MIcoreg 6.25 mg po bidatorvas tatin 20 mg po dailyclopi dogrel 75 mg po q amsee above htn medsmonito r Mixed anxi ety and depressive disorder 532766259 F41.8 contaripip razole 20 mg dailyvenla faxine 150 mg po dailyprazo sin 6 mg po qhsmelaton in 3 mg po qhshydroxy zine 10 mg po q 8 hours prn anxiety6/1 0 renew clonazepam 0.5 mg po q 8 hours prn anxiety x 14 days10/01 cont as above10/05 stable today with above planmonito r [id number] Dori Pena NP [address] [address] 10/08/2023 11:40:06 10/15/2023 15:50:32 Type 1 diabetes mellitus 01625621 E10.9 pt having syrup and gingerale at [...] and need to titrate Irritable bowel syndrome 66704927 K58.9 with constipati on resolved with mom on 7 fri given today10/05 start senna 8.6 mg po daily? IBSlinzess 290 mcg q am10/07 having bm regularly nowmonitor Closed fra cture of multiple left ribs [id number] S22.42XG with left rib fxs 2-6 with [...] txadjust as needed. Abnormal weight loss 267 231711 R63.4 weight dropped > 12 lbs in a few days from admitappea rs to be error in initial intake weight10/04 160 lbs which is same as 09/22/23, ? incorrect admit weight but seems stable [facility] monitor Hypertensive disorder 38 002499 I10 stable on below regimen as it comes down to 120s systolic post medication contnorvas c 10 mg qdcoreg 6.25 mg bidlosarta n 100 mg qdmonitor need for increased control Asthenia 65403074 R53.1 PT OT eval and treatmonit or need for increased support in community Rheumatoid arthritis 698 93078 M06.9 remains onenbrel 50 mg q friday Coronary arteriosclerosis 40302831 I25.10 hx of MIcoreg 6.25 mg po bidatorvas tatin 20 mg po dailyclopi dogrel 75 mg po q amsee above htn medsmonito r Mixed anxi ety and depressive disorder 938145088 F41.8 contaripip razole 20 mg dailyvenla faxine 150 mg po dailyprazo sin 6 mg po qhsmelaton in 3 mg po qhshydroxy zine 10 mg po q 8 hours prn anxiety09/19 0 renew clonazepam 0.5 mg po q 8 hours prn anxiety x 14 days10/01 cont as above10/05 stable today with above plan10/07 stable today with above planmonito r Hyperkalemia 48754170 E8 7.5 k of 5.7 on give kayexalate 15 gm today10/08 bmp in ammonitor for additional e lyte abbormalit ies 283186 Dori Pena NP [address] [address] 10/09/2023 13:08:06 10/15/2023 16:27:22 Closed fracture of multiple left ribs [id number] 2522205 S22.42XG resolving with left rib fxs 2-6 [...] prnadjust as needed outpt with pcp Hyperkalemia 78964725 E8 7.5 k of 5.7 on give kayexalate 15 gm on 10/07monito r for additional e lyte abnormalit ies outpt with pcp Type 1 frank betes mellitus 44464485 E10.9 BS slightly high while at rehab with eating sugary foods/drin ksPlan: diet sodas and diet syrup and less sugary choicescon tglucernat resiba 30 units qdSS insulin with meals as per home schedmonit or glucose and need to titrate outpt with pcp outpt Irritable bowel syndrome 38352038 K58.9 with constipati on resolvedse nna 8.6 mg po daily (started at rehab)? IBSlinzess 290 mcg q ammonitor with pcp outpt Abnormal weight loss 267 818617 R63.4 weight dropped > 12 lbs in a few days from admitappea rs to be error in initial intake weight10/04 160 lbs which is same as 09/22/23, ? incorrect admit weight but seems stable nowmonitor oupt with pcp Hypertensive disorder 38 649276 I10 stable on below regimen as it comes down to 120s systolic post medication contnorvas c 10 mg qdcoreg 6.25 mg bidlosarta n 100 mg qdmonitor need for increased control outpt with pcp Asthenia 57992992 R53.1 PT OT eval and treat outpt prnmonitor need for increased support in community with pcp Rheumatoid arthritis 698 18025 M06.9 remains onenbrel 50 mg q fridaymoni tor outpt with pcp Coronary arteriosclerosis 17291209 I25.10 hx of MIcoreg 6.25 mg po bidatorvas tatin 20 mg po dailyclopi dogrel 75 mg po q amsee above htn medsmonito r outpt wtih pcp 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 contaripip razole 20 mg dailyvenla faxine 150 mg po dailyprazo sin 6 mg po qhsmelaton in 3 mg po qhshydroxy zine 10 mg po q 8 hours prn anxietyclo nazepam 0.5 mg po q 8 hours prn anxietymon itor outpt with pcp Gastroesop hageal reflux disease 515193237 K21.9 contnexium 40 mg qdmonitor for effect outpt with pcp Recurrent falls 62135347 2 R29.6 reports history of falls with automobile sales consultant at home to help her and balance issuesrepo rts more than 5 falls/year supportive care and therapy here for balance, strengthen ing, gait, mobility, endurance outpt rpnmonitor outpt with pcp 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 009277 E06.3 hx of added to PMHmaintai priscilla onsynthroi d 112 mcg qdmonitor tsh prn with pcp Obesity 059579539 E66.09 dietary evalbaseli ne DMweight to be monitored with pcp outpt Primary insomnia 3665928 F51.01 continueme latoninmon itor need to titrate outpt Acute cystitis 45733505 N30.00 resolved cefpodoxim e to complete courseaysm ptomaticmo nitor for recurrent disease outpt with pcp Health Concerns Section Related Observation LastModified by Organization Detai ls LastModified Time None Recorded Concern Status LastModified by Organization Details LastModified Time None Recorded Advance Directives Directive N: Payers Insurance Date Sequence Insurance Name Policy Number Policy Patten Covered Member ID Patten Member ID Guarantor Name 10/15/2023 1 [facility] - DOS ON OR AFTER 2022 - MEDICARE ADVANTAGE [place] (MEDICARE REPLACEMENT/ADV ANTAGE - PPO) Brandie Luevano [id number] Brandie Luevano Notes Date Note Type Note [...] cane usually Dori Pena, AAKASH [address] [facility], [place], [address], [facility] - [employer] 09/29/2023 11:09:33 10/02/2023 text/html ROS as noted [...] is sitting up in bed with her HERBOLOGIST visiting. She has her sling in place [...] cane usually Dori Pena NP [address] [facility], [place], [address], [facility] [employer] 10/02/2023 13:48:50 10/06/2023 text/html ROS as noted in the HPI Pt is seen for an acute rounding visit. Brandie is working here at [facility] and is feeling good and more mobile lately with left sling in place. She continues with therapy and making gains. She was treated for a UTI when she first came to [facility] and denies any urinary symptoms. Nursing [...] cane usually Dori Pena NP [address] [facility], [place], [address], [employer] 10/06/2023 12:26:22 10/08/2023 text/html ROS as noted [...] in a sling for comfort. While at [facility]:She was treated for a UTI when she first came to [facility] and denies any urinary symptoms. Nursing [...] cane usually Dori Pena NP [address] [facility], [place], [address], [employer] 10/08/2023 12:05:52 10/09/2023 text/html ROS as noted [...] in a sling for comfort. While at [facility]:She was treated for a UTI when she first came to [facility] and denies any urinary symptoms. Nursing [...] cane usually Dori Pena NP [address] [facility], [place], [address], [facility] [employer] 10/09/2023 16:50:56 OBGyn Episode No OBEpisode recorded.
--- OUTSIDE RECORDS SUMMARY | 2025-03-03 12:47 | XMS_ITS | Encounter Summary ---
Author Organization [employer] Address [address] [facility] 7t [place] [address] Care Team Providers Care Merchandising Team Lead Name Role Phone Pascual Daly MD Primary Care Provide r Fani Heck PharmD Unavailable +6 Dasia Waters PharmD Unavailable [phone] Reason for Visit * Reason Comments Med Refill Encounter Details Date Type Department Care Team ([facility] st Contact Info) Description 01/14/2024 Refill [facility] CHC MED & PEDS [address] [place] [address] Pascual Daly MD [address] [place], [place] [phone] Fibromyalgia Social History Tobacco Use Types Packs/Day [...] Description 04/29/2025 10:00 AM EST Clinical Support [facility] MEDICINE [address] [place] [address] Amanda Fernández RN 505 [place] [address] 08/24/2025 10:15 AM EDT Office Visit [facility] ADULT DENTAL 230 [place] [address] Kandy, Gabriela 230 [place] [address] documented as of this encounter Goals Goal [...] documented as of this encounter Care Teams Merchandising Team Lead Relationship Specialty Start Date End Date Pascual Daly MD 230 [place] [address] PCP - General Internal Medicine 02/22/14 Fani Heck, PharmD 230 [place] [address] Pharmacist Internal Medicine 12/16/22 08/15/24 Dasia Waters, KristiD 230 [place] [address] Pharmacist Internal Medicine 08/16/24 01/16/25 [facility] documented as of this encounter
--- OUTSIDE RECORDS SUMMARY | 2025-03-03 12:47 | XMS_ITS | Encounter Summary ---
Author Organization [employer] Address [address] [facility] 7t [place] [address] Care Team Providers Care Thermodynamics Engineer Name Role Phone Pascual Daly MD Primary Care Provide r Fani Heck PharmD Unavailable +3 Dasia Waters PharmD Unavailable [phone] Reason for Visit * Reason Comments Med Refill Encounter Details Date Type Department Care Team (Late st Contact Info) Description 10/21/2023 Refill [facility] 230 [place] [address] Titi Gray FNP Major depressive disorder with [...] Description 04/29/2025 10:00 AM EST Clinical Support [facility] MEDICINE [address] [place] [address] Amanda Fernández RN 505 [place] [address] 08/24/2025 10:15 AM EDT Office Visit [facility] ADULT DENTAL [address] [place] [address] Primo Gaitanaris [address] [place] [address] documented as of this encounter Goals Goal [...] documented as of this encounter Care Teams Thermodynamics Engineer Relationship Specialty Start Date End Date Pascual Daly MD 230 [place] [address] PCP - General Internal Medicine 02/22/14 Fani Heck, PharmD [address] [place] [address] Pharmacist Internal Medicine 12/16/22 08/15/24 Dasia Waters, KristiD [address] [place] [address] Pharmacist Internal Medicine 08/16/24 01/16/25 Ikre MARCUSA 12/18/24 documented as of this encounter
--- OUTSIDE RECORDS SUMMARY | 2025-03-03 12:47 | XMS_ITS | Encounter Summary ---
Author Organization [employer] Address [address] [facility] 7t [place] [address] Care Team Providers Care Video Game Maker Name Role Phone Pascual Daly MD Primary Care Provide r Fani Heck PharmD Unavailable + Dasia Waters PharmD Unavailable [phone] Encounter Details Date Type Department Care Team (Latest Contact Info) Description 05/26/2019 Abstract [facility] CONVERSIONS Dental, Provider, DDS Social History [...] Description 04/29/2025 10:00 AM EST Clinical Support [facility] MEDICINE 230 [place] [address] Amanda Fernández, AALIYAH 505 [place] [address] 08/24/2025 10:15 AM EDT Office Visit [facility] ADULT DENTAL 230 [place] [address] KandyGabriela [address] [place] [address] documented as of this encounter Visit Diagnoses Not on filedocumented in this encounter Care Teams Video Game Maker Relationship Specialty Start Date End Date Pascual Daly MD 230 [place] [address] PCP - General Internal Medicine 02/22/14 Fani Heck, KristiD 230 [place] [address] Pharmacist Internal Medicine 12/16/22 08/15/24 Dasia Waters PharmD 230 [place] [address] Pharmacist Internal Medicine 08/16/24 01/16/25 Iker MARCUSA 12/18/24 documented as of this encounter
--- OUTSIDE RECORDS SUMMARY | 2025-03-03 12:47 | XMS_ITS | Encounter Summary ---
Author Organization [employer] Address [address] [facility] 7t [place] [address] Care Team Providers Care Substance Addiction Coordinator Name Role Phone Pascual Daly MD Primary Care Provide r Fani Heck PharmD Unavailable +6 Dasia Waters PharmD Unavailable [phone] Reason for Visit * Reason Onset Date Comments FYI 11/06/2023 Encounter Details Date Type Department Care Team ([facility] st Contact Info) Description 11/06/2023 Telephone [facility] MEDICINE 230 [place], [place] [phone] Pascual Daly MD 230 [place] [address] Social History Tobacco Use Types Packs/Day Years [...] - 11/06/2023 4:39 PM EDT Tc from [facility] Iker CORDERO PT informing pt has started services For PT 11/06/23 documented in this encounter Plan of Treatment Upcoming Encounters Date Type Department Care Team (Late st Contact Info) Description 04/29/2025 10:00 AM EST Clinical Support [facility] MEDICINE [address] [place] [address] Amanda Fernández RN [address] [place] [address] 08/24/2025 10:15 AM EDT Office Visit [facility] ADULT DENTAL [address] [place] [address] Gabriela Gaitan 230 [place] [address] documented as of this encounter Goals Goal [...] documented as of this encounter Care Teams Substance Addiction Coordinator Relationship Specialty Start Date End Date Pascual Daly MD [address] [place] [address] PCP - General Internal Medicine 02/22/14 Fani Heck PharmD [address] [place] [address] Pharmacist Internal Medicine 12/16/22 08/15/24 Dasia Waters PharmD [address] [place] [address] Pharmacist Internal Medicine 08/16/24 01/16/25 Iker MARCUSA 12/18/24 documented as of this encounter
--- OUTSIDE RECORDS SUMMARY | 2025-03-03 12:47 | XMS_ITS | Encounter Summary ---
Author Organization [employer] Address [address] [facility] 7t [place] [address] Care Team Providers Care Coloring Room Man Name Role Phone Pascual Daly MD Primary Care Provide r Fani Heck PharmD Unavailable +9 Dasia Waters PharmD Unavailable [phone] Reason for Visit * Reason Comments Med Refill Encounter Details Date Type Department Care Team (Late st Contact Info) Description 01/01/2024 Refill [facility] 230 [place] [address] Momo Rizo MD [address] [place] [address] Social History Tobacco Use Types Packs/Day Years [...] Description 04/29/2025 10:00 AM EST Clinical Support [facility] MEDICINE [address] [place] [address] Amanda Fernández, AALIYAH [address] [place] [address] 08/24/2025 10:15 AM EDT Office Visit [facility] ADULT DENTAL 230 [place] [address] Akndy, Gabriela [address] [place] [address] documented as of this encounter Goals Goal [...] documented as of this encounter Care Teams Coloring Room Man Relationship Specialty Start Date End Date Pascual Daly MD [address] [place] [address] PCP - General Internal Medicine 02/22/14 Fani Heck, KristiD [address] [place] [address] Pharmacist Internal Medicine 12/16/22 08/15/24 Dasia Waters PharmD [address] [place] [address] Pharmacist Internal Medicine 08/16/24 01/16/25 [place] [facility] 12/18/24 documented as of this encounter
--- OUTSIDE RECORDS SUMMARY | 2025-03-03 12:47 | XMS_ITS | Encounter Summary ---
Author Organization [employer] Address [address] [facility] 7t [place] [address] Care Team Providers Care Casting Supervisor Name Role Phone Pascual Daly MD Primary Care Provide r Fani Heck PharmD Unavailable +1 Dasia Waters PharmD Unavailable [phone] Reason for Visit * Reason Comments Med Refill Encounter Details Date Type Department Care Team ([facility] st Contact Info) Description 07/16/2022 Refill [facility] MEDICINE [address] [place] [address] Pascual Daly MD [address] [place] [address] Social History Tobacco Use Types Packs/Day Years [...] 10:00 AM EST Clinical Support [facility] MEDICINE [address] [place] [address] Amanda Fernández, RN [address] [facility] [address] 08/24/2025 10:15 AM EDT Office Visit [facility] ADULT DENTAL [address] [place] [address] Kandy, Gabriela [address] [place] [address] documented as of this encounter Goals Goal [...] documented as of this encounter Care Teams Casting Supervisor Relationship Specialty Start Date End Date Pascual Daly MD [address] [place] [address] PCP - General Internal Medicine 02/22/14 Fani Heck, PharmD [address] [place] [address] Pharmacist Internal Medicine 12/16/22 08/15/24 Dasia Waters, [place] [address] Pharmacist Internal Medicine 08/16/24 01/16/25 [facility] 12/18/24 documented as of this encounter
--- OUTSIDE RECORDS SUMMARY | 2025-03-03 12:47 | XMS_ITS | Encounter Summary ---
Author Organization [employer] Address [address] [facility] 7t [place] [address] Care Team Providers Care Marketing Programs Manager Name Role Phone Pascual Daly MD Primary Care Provide r Fani Heck PharmD Unavailable +8 Dasia Waters PharmD Unavailable [phone] Encounter Details Date Type Department Care Team (Late Contact Info) Description 08/29/2022 Abstract [facility] MEDICINE [address] [place] [address] Pascual Daly MD [address] [place] [address] Social History Tobacco Use Types Packs/Day Years [...] Department Care Team (Late Contact Info) Description 04/29/2025 10:00 AM EST Clinical Support [facility] MEDICINE [address] [place] [address] Amanda Fernández RN 505 [place] [address] 08/24/2025 10:15 AM EDT Office Visit [facility] ADULT DENTAL [address] [place] [address] Kandy Gabriela [address] [place] [address] documented as of this encounter Goals Goal Patient Goal Type Associated Problems Recent Progress Patient-Stated? Author Blood Pressure < 140/90 Blood Pressure 140/84( 025 10:32 AM EDT) No Fani Heck, Woody documented [...] documented as of this encounter Care Teams Marketing Programs Manager Relationship Specialty Start Date End Date Pascual Daly MD [address] [place] [address] PCP - General Internal Medicine 02/22/14 Fani Heck, KristiD [address] [place] [address] Pharmacist Internal Medicine 12/16/22 08/15/24 Dasia Waters PharmD 230 [facility] [address] Pharmacist Internal Medicine 08/16/24 01/16/25 Iker CORDERO 12/18/24 documented as of this encounter
--- OUTSIDE RECORDS SUMMARY | 2025-03-03 12:47 | XMS_ITS | Encounter Summary ---
Author Organization [employer] Address [address] [facility] 7t [place] [address] Care Team Providers Care Health/Safety Job Titles Name Role Phone Pascual Daly MD Primary Care Provide r Fani Heck PharmD Unavailable +2 Dasia Waters PharmD Unavailable [phone] Reason for Visit * Reason Comments Med Refill Encounter Details Date Type Department Care Team (Late Contact Info) Description 08/08/2022 Refill [facility] [address] [place] [address] Momo Rizo MD [address] [place] [address] Mild intermittent asthma without complication Social History [...] Description 04/29/2025 10:00 AM EST Clinical Support [facility] MEDICINE [address] [place] [address] Amanda Fernández RN 505 [place] [address] 08/24/2025 10:15 AM EDT Office Visit [facility] ADULT DENTAL [address] [place] [address] Gabriela Gaitan 230 [place] [address] documented as of this encounter Goals Goal [...] documented as of this encounter Care Teams Health/Safety Job Titles Relationship Specialty Start Date End Date Pascual Daly MD [address] [place] [address] PCP - General Internal Medicine 02/22/14 Fani Heck, PharmD [address] [place] [address] Pharmacist Internal Medicine 12/16/22 08/15/24 Dasia Waters, KristiD [address] [place] [address] Pharmacist Internal Medicine 08/16/24 01/16/25 [place] [facility] 12/18/24 documented as of this encounter
--- OUTSIDE RECORDS SUMMARY | 2025-03-03 12:47 | XMS_ITS | Encounter Summary ---
Author Organization [employer] Address [address] [facility] 7t [place] [address] Care Team Providers Care Hollow Handle Knife Assembler Name Role Phone Pascual Daly MD Primary Care Provide r Fani Heck PharmD Unavailable +2 Dasia Waters PharmD Unavailable [phone] Reason for Visit * Reason Comments Med Refill Encounter Details Date Type Department Care Team (Late st Contact Info) Description 03/04/2023 Refill [facility] MEDICINE [address] [place] [address] Pascual Daly MD 230 [place] [address] Type 2 diabetes mellitus without complication, with long-term current use of insulin ([facility] Social History Tobacco Use Types Packs/Day Years [...] Description 04/29/2025 10:00 AM EST Clinical Support [facility] MEDICINE [address] [place] [address] Amanda Fernández RN 505 [place] [address] 08/24/2025 10:15 AM EDT Office Visit [facility] ADULT DENTAL 230 [place] [address] Gabriela Gaitan 230 [place] [address] documented as of this encounter Goals Goal [...] documented as of this encounter Care Teams Hollow Handle Knife Assembler Relationship Specialty Start Date End Date Pascual Daly MD [address] [place] [address] PCP - General Internal Medicine 02/22/14 Fani Heck, KristiD [address] [place] [address] Pharmacist Internal Medicine 12/16/22 08/15/24 Dasia Waters PharmD [address] [place] [address] Pharmacist Internal Medicine 08/16/24 01/16/25 [facility] A 12/18/24 documented as of this encounter
--- OUTSIDE RECORDS SUMMARY | 2025-03-03 12:47 | XMS_ITS | Encounter Summary ---
Author Organization [employer] Address [address] [facility] 7t [place] [address] Care Team Providers Care Corporate Administrative Assistant Name Role Phone Pascual Daly MD Primary Care Provide r Reason for Visit * Reason Onset Date Comments Results 02/09/2025 Encounter Details Date Type Department Care Team ([facility] Contact Info) Description 02/09/2025 Results Follow-Up [facility] MEDICINE [address] [place] [address] Raven Polanco MD [address] [place] [address] XR KUB and Upright 2 Views Social [...] related to KUB results, pt states her SPORTS BOOK BOARD ATTENDANT is gone and she can't get to the hospital patient I then told the patient I would initiate an EMS call for ambulance transportation to hospital pt is in agreement. 911 contacted and dispatchedto pt home address which she verified over the phone. Also contact [facility] for an expect. Will forward to [...] Description 04/29/2025 10:00 AM EST Clinical Support [facility] MEDICINE [address] [place] [address] Amanda Fernández RN 505 [place] [address] 08/24/2025 10:15 AM EDT Office Visit [facility] ADULT DENTAL [address] [place] [address] Primo Gaitanaris [address] [place] [address] documented as of this encounter Goals Goal [...] as of this encounter Care Teams Corporate Administrative Assistant Relationship Specialty Start Date End Date Pascual Daly MD [address] [place] [address] PCP - General Internal Medicine 02/22/14 Iker CORDERO 12/18/24 documented as of this encounter
--- OUTSIDE RECORDS SUMMARY | 2025-03-03 12:47 | XMS_ITS | Encounter Summary ---
Author Organization [employer] Address 75 [facility] 7t [place] [address] Care Team Providers Care Ship Scraper Name Role Phone Pascual Daly MD Primary Care Provide r Fani Heck PharmD Unavailable +5 Dasia Waters PharmD Unavailable [phone] Reason for Visit * Reason Comments Med Refill Encounter Details Date Type Department Care Team (Late Contact Info) Description 10/02/2022 Refill [facility] MEDICINE 230 [place] [address] Titi Gray FNP Major depressive disorder with [...] 04/29/2025 10:00 AM EST Clinical Support [facility] MEDICINE [address] [place] [address] Amanda Fernández RN 505 [place], [place] [phone] 08/24/2025 10:15 AM EDT Office Visit [facility] ADULT DENTAL [address] [place] [address] Gabriela Gaitan 230 [place] [address] documented as of this encounter Goals Goal [...] documented as of this encounter Care Teams Ship Scraper Relationship Specialty Start Date End Date Pascual Daly MD [address] [place] [address] PCP - General Internal Medicine 02/22/14 Fani Heck, PharmD [address] [place] [address] Pharmacist Internal Medicine 12/16/22 08/15/24 Dasia Waters, KristiD [address] [place] [address] Pharmacist Internal Medicine 08/16/24 01/16/25 [place] [facility] 12/18/24 documented as of this encounter
--- OUTSIDE RECORDS SUMMARY | 2025-03-03 12:47 | XMS_ITS | Encounter Summary ---
Author Organization [employer] Address [address] [address] 7t [place] [address] Care Team Providers Care Cyber Incident Analyst Name Role Phone Pascual Daly MD Primary Care Provide r Fani Heck PharmD Unavailable +0 Dasia Waters PharmD Unavailable [phone] Reason for Visit * Reason Comments Med Refill Encounter Details Date Type Department Care Team (Late st Contact Info) Description 10/21/[address] [facility] MEDICINE [address] [place] [address] Titi Gray FNP Major depressive disorder with [...] AM EST Clinical Support [facility] MEDICINE [address] [place] [address] Amanda Fernández RN 505 [place] [address] 08/24/2025 10:15 AM EDT Office Visit [facility] ADULT DENTAL [address] [place] [address] Primo Gaitanaris [address] [place] [address] documented as of this encounter Goals Goal [...] documented as of this encounter Care Teams Cyber Incident Analyst Relationship Specialty Start Date End Date Pascual Daly MD 230 [place] [address] PCP - General Internal Medicine 02/22/14 Fani Heck, PharmD 230 [place] [address] Pharmacist Internal Medicine 12/16/22 08/15/24 Dasia Waters, KristiD 230 [place] [address] Pharmacist Internal Medicine 08/16/24 01/16/25 Iker MARCUSA 12/18/24 documented as of this encounter
--- OUTSIDE RECORDS SUMMARY | 2025-03-03 12:47 | XMS_ITS | Encounter Summary ---
Author Organization [employer] Address 75 [facility] 7t [place] [address] Care Team Providers Care Histology Supervisor Name Role Phone Pascual Daly MD Primary Care Provide r Fani Heck PharmD Unavailable + Dasia Waters PharmD Unavailable [phone] Encounter Details Date Type Department Care Team (Late Contact Info) Description 05/29/2022 Abstract [facility] MEDICINE [address] [place] [address] Pascual Daly MD 230 [place] [address] Social History Tobacco Use Types Packs/Day Years [...] Description 04/29/2025 10:00 AM EST Clinical Support [facility] MEDICINE [address] [place] [address] Amanda Fernández RN [address] [facility] [place] [address] 08/24/2025 10:15 AM EDT Office Visit [facility] ADULT DENTAL 230 [place] [address] Kandy Gabriela [address] [place] [address] documented as of this encounter Goals Goal [...] documented as of this encounter Care Teams Histology Supervisor Relationship Specialty Start Date End Date [place] [address] PCP - General Internal Medicine 02/22/14 Fani Heck, [place] [address] Pharmacist Internal Medicine 12/16/22 08/15/24 Dasia Waters, Woody [address] [place] [address] Pharmacist Internal Medicine 08/16/24 01/16/25 Iker CORDERO 12/18/24 documented as of this encounter
--- OUTSIDE RECORDS SUMMARY | 2025-03-03 12:47 | XMS_ITS | Encounter Summary ---
Author Organization [employer] Address [address] [facility] 7t [place] [address] Care Team Providers Care Inspector Toys Name Role Phone Pascual Daly MD Primary Care Provide r Fani Heck PharmD Unavailable +0 Dasia Waters PharmD Unavailable [phone] Reason for Visit * Reason Onset Date Comments Med Refill 10/11/2022 Encounter Details Date Type Department Care Team ([facility] st Contact Info) Description 10/11/2022 Telephone [facility] MEDICINE [address] [place], [place] [phone] Pascual Daly MD 230 [place], [place] [phone] Med Refill Social History Tobacco Use Types [...] Description 04/29/2025 10:00 AM EST Clinical Support [facility] MEDICINE [address] [place] [address] Amanda Fernández, AALIYAH 505 [place] [address] 08/24/2025 10:15 AM EDT Office Visit [facility] ADULT DENTAL [address] [place] [address] Kandy, Gabriela [address] [place] [address] documented as of this encounter Goals Goal [...] documented as of this encounter Care Teams Inspector Toys Relationship Specialty Start Date End Date Pascual Daly MD [address] [place] [address] PCP - General Internal Medicine 02/22/14 Fani Heck, PharmD [address] [place] [address] Pharmacist Internal Medicine 12/16/22 08/15/24 Dasia Waters, KristiD [address] [place] [address] Pharmacist Internal Medicine 08/16/24 01/16/25 [facility] 12/18/24 documented as of this encounter
--- OUTSIDE RECORDS SUMMARY | 2025-03-03 12:47 | XMS_ITS | Encounter Summary ---
Author Organization [employer] Address [address] [facility] 7t [place] [address] Care Team Providers Care Production Mechanic Name Role Phone Pascual Daly MD Primary Care Provide r Fani Heck PharmD Unavailable +5 Dasia Waters PharmD Unavailable [phone] Reason for Visit * Reason Onset Date Comments Med Refill 12/15/2023 Encounter Details Date Type Department Care Team ([facility] st Contact Info) Description 12/15/2023 Telephone [facility] MEDICINE 230 [place], [place] [phone] Pascual Daly MD 230 [place] [address] Med Refill Social History Tobacco Use Types [...] sent to: [facility] - [place], [place] - [address] [place] [address] documented in this encounter Plan of Treatment Upcoming Encounters Date Type Department Care Team ([facility] st Contact Info) Description 04/29/2025 10:00 AM EST Clinical Support [facility] MEDICINE 230 [place] [address] Amanda Fernández RN 505 [place] [address] 08/24/2025 10:15 AM EDT Office Visit [facility] ADULT DENTAL 230 [place] [address] Gabriela Gaitan 230 [place] [address] documented as of this encounter Goals Goal [...] as of this encounter Care Teams Production Mechanic Relationship Specialty Start Date End Date Pascual aDly MD 230 [place] [address] PCP - General Internal Medicine 02/22/14 Fani Heck, PharmD 230 [place] [address] Pharmacist Internal Medicine 12/16/22 08/15/24 Dasia Waters PharmD 230 [place] [address] Pharmacist Internal Medicine 08/16/24 01/16/25 [facility] 12/18/24 documented as of this encounter
--- OUTSIDE RECORDS SUMMARY | 2025-03-03 12:47 | XMS_ITS | Encounter Summary ---
Author Organization [employer] Address [address] [facility] [address] 7t [place] [address] Care Team Providers Care End Trimmer Name Role Phone Pascual Daly MD Primary Care Provide r Fani Heck PharmD Unavailable [phone] Dasia Waters PharmD Unavailable [phone] Encounter Details Date Type Department Care Team (Late st Contact Info) Description 03/05/2024 Refill [facility] MEDICINE [address] [place] [address] Jefry Chun Benign hypertension; Type 2 diabetes mellitus without complication, with long-term current use of insulin ([facility]) Social History Tobacco Use Types Packs/Day [...] Description 04/29/2025 10:00 AM EST Clinical Support [facility] MEDICINE [address] [place] [address] Amanda Fernández RN 505 [place] [address] 08/24/2025 10:15 AM EDT Office Visit [facility] ADULT DENTAL [address] [place] [address] Kandy, Gabriela 230 [place] [address] documented as of this encounter Goals Goal [...] documented as of this encounter Care Teams End Trimmer Relationship Specialty Start Date End Date Pascual Daly MD [address] [place] [address] PCP - General Internal Medicine 02/22/14 Fani Heck, KristiD 230 [place] [address] Pharmacist Internal Medicine 12/16/22 08/15/24 Dasia Waters PharmD 230 [place] [address] Pharmacist Internal Medicine 08/16/24 01/16/25 [place] [facility] 12/18/24 documented as of this encounter
--- OUTSIDE RECORDS SUMMARY | 2025-03-03 12:47 | XMS_ITS | Encounter Summary ---
Author Organization [employer] Address 75 [facility] 7t [place] [address] Care Team Providers Care Warehousing Technician Name Role Phone Pascual Daly MD Primary Care Provide r Fani Heck PharmD Unavailable +[phone] Dasia Waters PharmD Unavailable [phone] Reason for Visit * Reason Onset Date Comments Appointment Request 09/03/2022 Encounter Details Date Type Department Care Team ([facility] st Contact Info) Description 09/03/2022 Telephone [facility] MEDICINE 230 [place], [place] [phone] Pascual Daly MD 230 [place] [address] Appointment Request Social History Tobacco Use Types [...] Miscellaneous Notes * Telephone Encounter - Rosaline iGlman - 09/03/2022 10:33 AM EDT Tc from pt requesting to r/s todays no show appt . documented in this encounter Plan of Treatment Upcoming Encounters Date Type Department Care Team (Late st Contact Info) Description 04/29/2025 10:00 AM EST Clinical Support [facility] MEDICINE 230 [place] [address] Amanda Fernández, AALIYAH [address] [place], [place] [address]413 08/24/2025 10:15 AM EDT Office Visit [facility] ADULT DENTAL 230 [place] [address] Gabriela Gaitan 230 [place] [address] documented as of this encounter Goals Goal Patient Goal Type Associated Problems Recent Progress Patient-Stated? Author Blood Pressure < 140/90 Blood Pressure 140/84( 025 10:32 AM EDT) No Fani Heck PharmD documented as of this encounter Visit Diagnoses Not on filedocumented in this encounter Additional Health Concerns Assessment Noted Time PHQ-9 Depression Total Score: 8 07/05/19 23 9:26 AM EDT documented as of this encounter Care Teams Warehousing Technician Relationship Specialty Start Date End Date Pascual Daly MD [address] [place] [address] PCP - General Internal Medicine 02/22/14 Fani Heck PharmD [address] [place] [address] Pharmacist Internal Medicine 12/16/22 08/15/24 Dasia Waters PharmD [address] [place] [address] Pharmacist Internal Medicine 08/16/24 01/16/25 Iker CORDERO 12/18/24 documented as of this encounter
--- OUTSIDE RECORDS SUMMARY | 2025-03-03 12:47 | XMS_ITS | Encounter Summary ---
Author Organization [employer] Address [address] [facility] 7t [place] [address] Care Team Providers Care Behavioral Health Assistant Name Role Phone Pascual Daly MD Primary Care Provide r Reason for Visit * Reason Comments Med Refill Encounter Details Date Type Department Care Team ([facility] st Contact Info) Description 02/10/2025 Refill [facility] MEDICINE 230 [place], [place] [phone] Pascual Daly MD 230 [place] [address] Long-term current use of opiate analgesic Social [...] Support [facility] MEDICINE [address] [place] [phone] Amanda Fernández, AALIYAH 505 [place] [address] 08/24/2025 10:15 AM EDT Office Visit [facility] ADULT DENTAL [address] [place] [address] Kandy, Gabriela [address] [place] [address] documented as of this encounter Goals Goal [...] documented as of this encounter Care Teams Behavioral Health Assistant Relationship Specialty Start Date End Date Pascual Daly MD [address] [place] [address] PCP - General Internal Medicine 02/22/14 Iker CORDERO 12/18/24 documented as of this encounter
--- OUTSIDE RECORDS SUMMARY | 2025-03-03 12:47 | XMS_ITS | Encounter Summary ---
Author Organization [employer] Address 75 [facility] 7t [place] [address] Care Team Providers Care Point Of Care Specialist Name Role Phone Pascual Daly MD Primary Care Provide r Fani Heck PharmD Unavailable [phone] Dasia Waters PharmD Unavailable [phone] Reason for Visit * Reason Onset Date Comments FYI 12/11/2023 Durable Medical Equipment 12/11/2023 Encounter Details Date Type Department Care Team (Late st Contact Info) Description 12/11/2023 Telephone [facility] MEDICINE 230 [place], [place] [phone] Pascual Daly MD 230 [place], [place] [phone] FYI ; Durable Medical Equipment Social History [...] EDT Tc from [facility] with [facility] informing that pt had 2 falls within the last 3 days and is requesting two DME scripts to be sent to [facility] which: [employer] bed Please fax over to [phone] documented in this encounter Plan of Treatment Upcoming Encounters Date Type Department Care Team (Late st Contact Info) Description 04/29/2025 10:00 AM EST Clinical Support [facility] MEDICINE 230 [place] [address] Amanda Fernández RN 505 [place] [address] 08/24/2025 10:15 AM EDT Office Visit [facility] ADULT DENTAL 230 [place] [address] Gabriela Gaitan 230 [place] [address] documented as of this encounter Goals Goal Patient Goal Type Associated Problems Recent Progress Patient-Stated? Author Blood Pressure < 140/90 Blood Pressure 140/84( 025 10:32 AM EDT) No Fain Heck, PharmD documented as of this encounter Visit Diagnoses Not on filedocumented in this encounter Additional Health Concerns Assessment Noted Time PHQ-9 Depression Total Score: 11 024 10:24 AM EST documented as of this encounter Care Teams Point Of Care Specialist Relationship Specialty Start Date End Date Pascual Daly MD 230 [place] [address] PCP - General Internal Medicine 02/22/14 Fani Heck, PharmD [address] [place] [address] Pharmacist Internal Medicine 12/16/22 08/15/24 Dasia Waters PharmD 230 [place] [address] Pharmacist Internal Medicine 08/16/24 01/16/25 [facility] 12/18/24 documented as of this encounter
--- OUTSIDE RECORDS SUMMARY | 2025-03-03 12:47 | XMS_ITS | Encounter Summary ---
Author Organization [employer] Address 75 [facility] 7t [place] [address] Care Team Providers Care Appointment Specialist Name Role Phone Pascual Daly MD Primary Care Provide r Fani Heck PharmD Unavailable [phone] Dasia Waters PharmD Unavailable [phone] Encounter Details Date Type Department Care Team (Late st Contact Info) Description 07/01/[address] [facility] [address] [place] [address] Pascual Daly MD [address] [place] [address] Social History Tobacco Use Types Packs/Day Years [...] 07/04/2022 9:26 AM Meredith Dias MA * How difficult have these problems made it for you to do your work, take care of things at home, or get along with other people? Answer Date of Assessment Author Very difficult 07/04/2022 9:26 AM Sivan Dias MA * Over the past 2 [...] Description 04/29/2025 10:00 AM EST Clinical Support [facility] MEDICINE [address] [place] [address] Amanda Fernández, RN 505 [place] [address] 08/24/2025 10:15 AM EDT Office Visit [facility] ADULT DENTAL [address] [place] [address] Kandy, Gabriela 230 [place] [address] documented as of this encounter Goals Goal [...] documented as of this encounter Care Teams Appointment Specialist Relationship Specialty Start Date End Date Pascual Daly MD [address] [place] [address] PCP - General Internal Medicine 02/22/14 Fani Heck, PharmD [address] [place] [address] Pharmacist Internal Medicine 12/16/22 08/15/24 Dasia Waters, KristiD [address] [place] [address] Pharmacist Internal Medicine 08/16/24 01/16/25 [facility] 12/18/24 documented as of this encounter
--- OUTSIDE RECORDS SUMMARY | 2025-03-03 12:47 | XMS_ITS | Encounter Summary ---
Author Organization [employer] Address 75 [facility] 7t [place] [address] Care Team Providers Care Banquet Manager Name Role Phone Pascual Daly MD Primary Care Provide r Reason for Visit * Reason Onset Date Comments Med Refill 02/08/2025 Encounter Details Date Type Department Care Team ([facility] st Contact Info) Description 02/08/2025 Telephone [facility] MEDICINE 230 [place] [address] Pascual Daly MD 230 [place] [address] Med Refill Social History Tobacco Use Types [...] release tablet To be sent to: [facility] - [place], [place] - [address] [place] [address] documented in this encounter Plan of Treatment Upcoming Encounters Date Type Department Care Team ([facility] st Contact Info) Description 04/29/2025 10:00 AM EST Clinical Support [facility] MEDICINE [address] [place] [address] Amanda Fernández RN 505 [place] [address] 08/24/2025 10:15 AM EDT Office Visit [facility] ADULT DENTAL [address] [place] [address] Gabriela Gaitan [address] [place] [address] documented as of this encounter Goals Goal [...] as of this encounter Care Teams Banquet Manager Relationship Specialty Start Date End Date Pascual Daly MD 230 [place] [address] PCP - General Internal Medicine 02/22/14 Iker Ingrid 12/18/24 documented as of this encounter
--- OUTSIDE RECORDS SUMMARY | 2025-03-03 12:47 | XMS_ITS | Clinical Summary ---
Author Organization [employer] Address [address] [place] [address] Care Team Providers Care General Teller Name Role Phone Pascual Daly MD Primary [...] Active Continuous Glucose Sensor (Dexcom G7 Sensor) [facility] DIRECTED Active Actemra ACTPen 162 MG/0.9ML solution auto-injector Inject as directed (likely every other week; verify dose with patient or pharmacy) Active Alcohol Swabs (Alcohol Pads) 70 % padsIndications :Type 2 diabetes mellitus without complication, with long-term current use of insulin (HCC) Use up to 4 times a day for insulin injections 100 each 11 Active Blood Pressure Monitoring (Adult Blood Pressure Cuff Lg) kit Use daily to check blood pressure 1 kit Active levothyroxine (Synthroid, Levoxyl) 125 MCG tablet [...] mouth 2 times daily. 180 capsule 1 Active cyclobenzaprine (Flexeril) 10 MG tablet Take 10 mg by mouth if needed in the morning, at noon, and at bedtime for muscle spasms. Active methocarbamol (Robaxin) 500 MG tablet Active predniSONE (Deltasone) 5 MG tablet TAKE 4 TABLETS BY MOUTH ONCE DAILY FOR 7 DAYS, THEN 3 TABLETS ONCE DAILY FOR 7 DAYS, 2 TABLETS ONCE DAILY FOR 7 DAYS, THEN 1 TABLET ONCE DAILY FOR 7 DAYS Active venlafaxine XR (Effexor XR) 150 MG 24 hr capsule Active Blood Glucose Monitoring Suppl (FreeStyle Lite) w/Device kit 1 each if needed in the morning, at noon, and at bedtime (Sensor failure). 1 kit Active chlorhexidine (Peridex) 0.12 % solution Swish 15 mL morning and night for 1 minute. Spit, do not swallow. Do not eat or drink for 30 minutes following use. 473 mL Active oxyCODONE (Roxicodone) 5 MG immediate release tabletIndicatio ns:Long-term current use of opiate analgesic Take 1 tablet (5 mg) by mouth every 12 (twelve) hours if needed for severe pain for up to 28 days. 56 tablet 025 2024 Active amLODIPine (Norvasc) 10 MG tabletIndicatio ns:Benign hypertension TAKE 1 TABLET BY MOUTH EVERY EVENING 90 tablet 1 Active atorvastatin (Lipitor) 20 MG tabletIndicatio ns:Type 2 diabetes mellitus without complication, with long-term current use of insulin (HCC) TAKE 1 TABLET BY MOUTH EVERY MORNING 90 tablet 1 Active Ventolin HFA 108 (90 Base) MCG/ACT inhalerIndicati ons:Mild intermittent asthma without complication INHALE 2 PUFFS BY MOUTH EVERY 4 TO 6 HOURS NEEDED 18 g 1 025 Active albuterol (Ventolin HFA) 108 (90 Base) MCG/ACT inhalerIndicati ons:Mild intermittent asthma without complication INHALE 2 PUFFS BY MOUTH EVERY 4 TO 6 HOURS NEEDED 18 g 1 025 2024 Discontinued atorvastatin (Lipitor) 20 MG tabletIndicatio ns:Type 2 diabetes mellitus without complication, with long-term current use of insulin (HCC) TAKE 1 TABLET BY MOUTH EVERY MORNING 90 tablet 1 025 2024 Discontinued amLODIPine (Norvasc) 10 MG tabletIndicatio ns:Benign hypertension TAKE 1 TABLET BY MOUTH EVERY EVENING 90 tablet 1 025 2024 Discontinued oxyCODONE (Roxicodone) 5 MG immediate release tabletIndicatio ns:Long-term current use of opiate analgesic Take 1 tablet (5 mg) by mouth every 12 (twelve) hours if needed for severe pain for up to 28 days. 56 tablet 025 2024 Discontinued(R eorder (will not trigger notification to Pharmacy)) Active Problems Problem Noted Date Diagnosed Date Missing teeth, acquired 02/17/2025 Dental caries 01/26/2025 Abdominal pain 01/14/2025 Acute [...] ulcer 09/16/2024 Coronary artery disease invo lving nulato coronary artery of nulato heart without angina pectoris 08/12/2024 Assessment & [...] 10:18 AM EDT): Mammogram 06/05/2023 Normal Pap 7/12/13 normal, given age no [...] (08/27/2022 10:19 AM EDT): followed by a package sealer machine. 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 She says it falls out when she brushes her hair Pt evaluated by Dr Guevara Rheumatoid arthritis involvi ng multiple sites with positive rheumatoid factor ([facility]/HCC) 08/27/2022 Assessment & Plan (01/04/2025 9:23 AM [...] Major depressive disorder with psychotic feature s ([facility]/HCC) 03/26/2022 Assessment & Plan (01/04/2025 9:33 AM EDT): Titi Gray retired She has a new Psychiatrist and a psychotherapist in [place] She tells me she is taking Effexor, [...] with cardiology in August. - Follow-up in [facility] in November. Repeat BMP [...] from 7.8 Eye exam done on: 12/2023 [facility] Dx with new [...] from 8.9 Eye exam done on: 12/2023 [facility] Dx with new [...] f/u She is under the care of Housekeeping Room Inspector Dr Sprague, last seen 12/31/2023 On a [...] f/u She is under the care of Housekeeping Room Inspector Dr Sprague, last seen 10/16/2023 On a [...] f/u She is under the care of Housekeeping Room Inspector Dr Sprague, has a follow up with [...] f/u She is under the care of Housekeeping Room Inspector Dr Sprague, has a follow up at [...] referred to Dr. Manjinder Gonsales at [facility] as her medical insurance recommended this [...] LDL-C. Melquiades WALLACE et al. TEN. 2013;310(19): 6730-5552 (http://education.OfferLounge.Entelos/faq/XJS183) Chol/HDLC Ratio <5.0 (calc) 4.2 3.7 2.5 [...] (01/04/2025 9:38 AM EDT): Patient admitted to [facility] from (11/08/24 - 11/10/24) S/P fall and head injury at the visit with hematology. Eventually admitted for head injury and wrist injury. Patient's 4th finger was dislocated, lip, nose, and forehead were lacerated. Physical Therapy recommended rehabilitation. Eventually discharged to [facility] for not meeting medical necessity for hospitalization. Instructed to follow up with orthopedics team. She was at [facility] from 11/10/24 - 12/17/24 Discharged home with medications and snf services. Instructed to follow up with PCP with us in 7 to 10 days. Today she feels fine, no complaints, has a follow up with orthopedics tomorrow Assessment & Plan (10/21/2023 10:15 AM EDT): Patient admitted to [facility] 09/09/23 after she presented to [place] emergency room due to left-sided chest discomfort [...] Encounters Date Type Department Care Team Description 02/21/2025 Refill [facility] [address] [place] [address] Pascual Daly MD Mild intermittent asthma without complication 02/17/2025 10:15 AM EDT Office Visit [facility] [address] [place] [address] Primo Gaitanaris Xerostomia (Primary Dx); Dental plaque; Missing teeth, acquired 02/11/2025 Telephone [facility] [address] [place] [address] Ana Cali, SENIOR FRONT END DEVELOPER Follow-up 02/10/2025 Refill [facility] [address] [place] [address] Pascual Daly MD Long-term current use of opiate analgesic 02/10/2025 Refill [facility] [address] [place], [place] [phone] Pascual Daly MD Benign hypertension; Type 2 diabetes mellitus without complication, with long-term current use of insulin ([facility]) 02/09/2025 11:00 AM EDT Office Visit [facility] [address] [place] [address] Raven Polanco MD Suprapubic pain (Primary Dx); Bladder pain; Dietary counseling; Exercise counseling; Class 1 obesity with serious comorbidity and body mass index (BMI) of 30.0 to 30.9 in adult, unspecified obesity type; Paralytic ileus ([facility]/HCC) ([facility]) 02/09/2025 Orders Only GENERIC EXTERNAL DATA DEPARTMENT Provider, Generic External Data 02/09/2025 Results Follow-Up [facility] [address] [place] [phone] Raven Polanco MD XR KUB and Upright 2 Views 02/09/2025 Travel 02/08/2025 Refill [facility] [address] [place], [place] [phone] Amanda Fernández, AALIYAH Long-term current use of opiate analgesic 02/08/2025 Telephone [facility] [address] [place] [address] Pascual Daly MD Med Refill 01/26/2025 9:00 AM EDT Office Visit [facility] [address] [place] [address] Christian Winchester DDS Dental caries (Primary Dx); Aphthous ulcer 01/20/2025 10:30 AM EDT Clinical Support [facility] [address] [place] [address] Amanda Fernández RN Long-term current use of opiate analgesic (Primary Dx) 01/20/2025 Travel 01/17/2025 Abstract [facility] [address] [place] [address] Dasia Waters, PharmD 01/17/2025 Travel 01/14/2025 10:30 AM EDT Office Visit [facility] [address] [place] [address] Santizo-Mckeon, Ammy, DDS Aphthous ulcer (Primary Dx) 01/14/2025 Refill [facility] [address] [place] [address] Pascual Daly MD Pain 01/11/2025 Refill [facility] [address] [place] [address] Pascual Daly MD Long-term current use of opiate analgesic (Primary Dx) 01/07/2025 Orders Only GENERIC EXTERNAL DATA DEPARTMENT Provider, Generic External Data 01/04/2025 9:30 AM EDT Office Visit [facility] [address] [place] [address] Pascual Daly MD Hospital discharge follow-up (Primary Dx); Type 2 diabetes mellitus with right eye affected by mild nonproliferative retinopathy without macular edema, with long-term current use of insulin ([facility]); Rheumatoid arthritis involving multiple sites with positive rheumatoid factor ([facility]); Major depressive disorder with psychotic features ([facility]); Mixed stress and urge urinary incontinence; Sore throat 01/04/2025 Travel 01/03/2025 Telephone [facility] [address] [place] [address] Pascual Daly MD chart prep 12/31/2024 Telephone [facility] [address] [place] [address] Katie Harper, PharmD 12/22/2024 Telephone [facility] [address] [place] [address] Pascual Daly MD Durable Medical Equipment 12/15/2024 Patient Outreach [facility] [address] [place] [address] Pascual Daly MD Transition Of Care (Tcm) (HDF scheduled. ) from Last 3 Months Immunizations Immunization Administration [...] Sign Reading Time Taken Comments Blood Pressure 140/84 02/17/2025 10:32 AM EDT Pulse 86 02/09/2025 11:05 AM [...] Description 04/29/2025 10:00 AM EST Clinical Support [facility] [address] [place] [address] Amanda Fernández RN [address] [place] [address] 08/24/2025 10:15 AM EDT Office Visit [facility] [address] [place] [address] Kandy, Gabriela [address] [place] [address] Health Maintenance Due Date Last Done Comments CT Colonography 1950 FIT DNA/Cologuard 1950 FIT 1950 FOBT 1950 Sigmoidoscopy 1950 Diabetes: Foot Exam 02/08/1960 Eye Exam 02/08/1960 Diabetes: Urine Protein Screening 07/01/2024 07/02/2023, 01/10/2023, 07/17/2021, Additional history exists Dental Oral Exam 02/05/2025 08/05/2024 Diabetes: Hemoglobin A1C 04/08/2025 025, 11/24/2024, 08/12/2024, Additional history exists Alcohol/Substance Use Screening 05/04/2025 05/04/2024 Depression Monitoring 07/04/2025 01/04/2025, 025 COVID-19 Vaccine ( season) 2025 01/17/2025, 04/18/2022, 09/04/2021, Additional history exists SDOH Screening 08/12/2025 08/12/2024 Lipid Panel 08/16/2025 08/16/2024, 10/19, 07/02/2023, Additional history exists Dental Prophylaxis 08/19/2025 02/17/2025, 08/05/2024 Tobacco Screening 02/17/2026 02/17/2025 Dental X-Ray: Full Mouth 08/07/2027 08/05/2024 Colonoscopy [...] Completed 01/17/2025, , 03/11/2023, Additional history exists Dental X-Ray: Bitewings Discontinued HIB Vaccines Aged Out No longer eligi [...] 10:32 AM EDT) No Fani Heck, Woody Procedures Procedure Name Priority Date/Time Associated Diagnosis Comments CASE PRESENTATION, DETAILED AND EXTENSIVE TREATMENT PLANNING Routine 02/17/2025 10:15 AM EDT Xerostomia Dental plaque Missing teeth, acquired ORAL HYGIENE INSTRUCTIONS Routine 02/17/2025 10:15 AM EDT Xerostomia Dental plaque Missing teeth, acquired TOPICAL APPLICATION OF FLUORIDE VARNISH Routine 02/17/2025 10:15 AM EDT Xerostomia PROPHYLAXIS - ADULT Routine 02/17/2025 1 0:15 AM EDT Dental plaque CT ABDOMEN PELVIS W CONTRAST Routine 02/09/2025 6:41 PM EDT CULTURE, URINE, ROUTINE Routine 02/09/2025 6:40 PM EDT URINALYSIS, COMPLETE, WITH REFLEX TO CULTURE Routine 02/09/2025 6:11 PM EDT XR KUB AND UPRIGHT 2 VIEWS Routine [...] with long-term current use of insulin (CMS/HCC) HEPATITIS PANEL, GENERAL Routine 10/28/2024 10:04 AM EDT LIPID PANEL, STANDARD Routine 08/16/2024 9:24 AM EDT Mixed hyperlipidemia PANORAMIC RADIOGRAPHIC IMAGE Routine 08/05/2024 10:00 AM EDT PERIODIC ORAL EVALUATION - ESTABLISHED PATIENT Routine 08/05/2024 10:00 AM EDT ALBUMIN, RANDOM URINE W/CREATININE Routine 07/02/2023 10:06 AM EDT HM COLONOSCOPY Routine 03/20/2018 from Last 3 Months or Most Recently Relevant to Health Maintenance Results * CT Abdomen Pelvis w/ Contrast (02/09/2025 6:41 PM EDT) Anatomical Region Laterality Modality Body, Pelvis, Abdomen Computed T omography 02/09/2025 6:41 PM EDT Narrative 02/09/2025 6:43 PM EDT [address] [id number] [address] Scan Report Signed Patient: Brandie Santana MR#: [id number] : 1950 Acct:[id number] Age/Sex: 75 / F ADM Date: 02/09/25 Loc: HO.ED Attending Dr: Ordering Physician: Vivian Reese DO Date of Service: 02/09/25 Procedure(s): CT abdomen pelvis w IV con Accession Number(s): [id number] cc: Vivian Reese DO; Pascual Darnell MD Report Number: [id number]: Total DLP = 0.00 mGy-cm Reason for Exam: abdominal pain CLINICAL HISTORY: abdominal pain Exam: Contrast-enhanced CT abdomen and pelvis with multiplanar reformats. Comparison: None. Findings: CT abdomen: Lung bases are clear. Liver is free of focal lesions and ductal dilatation. Gallbladder is absent. Spleen appears unremarkable. Pancreas and adrenal glands appear unremarkable. Kidneys appear unremarkable. No free intraperitoneal fluid or retroperitoneal masses or adenopathy. Abdominal aorta is normal caliber with minimal calcific atherosclerosis. 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 No abnormal bowel wall thickening or distention. The appendix is not identified, however there is no secondary CT evidence of appendicitis. No significant diverticular disease. CT pelvis: Uterus and adnexal structures appear unremarkable. Urinary bladder is free of gross filling defects. No pelvic masses, fluid or adenopathy. Osseous structures reveal no destructive osseous lesions. Impression: 1. No acute abnormalities or CT explanation for abdominal pain. This document has been electronically signed by: Cristian Anthnoy MD on 02/09/2025 18:41:46 Dictated By: Cristian Anthony MD Signed By: <Electronically signed by Cristian Anthony MD in OV> 02/09/251841 DD/ 40 TD/TT: 02/09/251840 Engineer Exhauster: Procedure Note Donotuseinterpreter, Image - 02/09/[address] [place] [address] [address] Scan Report Signed Patient: Dino Santana#: [id number] : 1950Acct:[id number] Age/Sex: 75 / FADM Date: 02/09/25 Loc: HO.ED Attending Dr: Ordering Physician: Vivian Reese DO Date of Service: 02/09/25 Procedure(s): CT abdomen pelvis w IV con Accession Number(s): [id number] cc: Vivian Reese DO; Pascual Darnell MD Report Number: [id number]: Total DLP = 0.00 mGy-cm Reason for Exam: abdominal pain CLINICAL HISTORY: abdominal pain Exam: Contrast-enhanced CT abdomen and pelvis with multiplanar reformats. Comparison: None. Findings: CT abdomen: Lung bases are clear. Liver is free of focal lesions and ductal dilatation. Gallbladder is absent. Spleen appears unremarkable. Pancreas and adrenal glands appear unremarkable. Kidneys appear unremarkable. No free intraperitoneal fluid or retroperitoneal masses or adenopathy. Abdominal aorta is normal caliber with minimal calcific atherosclerosis. 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 No abnormal bowel wall thickening or distention. The appendix is not identified, however there is no secondary CT evidence of appendicitis. No significant diverticular disease. CT pelvis: Uterus and adnexal structures appear unremarkable. Urinary bladder is free of gross filling defects. No pelvic masses, fluid or adenopathy. Osseous structures reveal no destructive osseous lesions. Impression: 1. No acute abnormalities or CT explanation for abdominal pain. This document has been electronically signed by: Cristian Anthony MD on 02/09/2025 18:41:46 Dictated By: Cristian Anthony MD Signed By: <Electronically signed by Cristian Anthony MD in OV> 02/09/251841 DD/ 40 TD/TT: 02/09/251840 Engineer Exhauster: [facility] External Provider IMG CT PROCEDURES Final Result * Culture, Urine, Routine (02/09/2025 6:40 PM EDT) Urine Urine specimen obtained by clean catch procedure / Unknown 02/09/2025 6:40 PM EDT 02/09/2025 6:40 PM EDT Comment:UACC Narrative [facility] - 02/11/2025 9:45 AM EDT Urine Culture Report Result Urine Culture 50,000 to 100,000 cfu/ml Urine Culture Mixed bacterial oriana characteristic of Urine Culture urogenital contamination. Specimen Source: Urine clean catch Generic External Data Provider LAB MICROBIOLOGY - GENERAL ORDERABLES Final Result [facility] [address] [place] [phone] * (ABNORMAL) Urinalysis, Complete, with Reflex to Culture (02/09/2025 6:11 PM EDT) Color Urine Yellow [facility] Appearance Urine Clear [facility] PH 6.0 5.0 - 9.0 [facility] Glucose Urine UA Negative Negative mg/dL [facility] Urine Blood Negative Negative [facility] Specific [place] - Urine 1.010 1.005 - 1.025 [facility] Urine Protein Negative Neg-Trace mg/dL [facility] Urine Ketones Negative Negative mg/dL [facility] Nitrite Urine Negative Negative [facility] Leukocyte Esterase Urine Trace(A) Negative [facility] RBC Urine 0-2 0 - 2 /HPF [facility] Urine WBC 6-10(A) 0 - 5 /HPF [facility] Urine Squamous Epithelial Cell 3-5 0 - 2 /HPF [facility] Urine Bacteria None Seen None Seen [facility] Hyaline Casts, Urine 0-2 0 - 2 /LPF [facility] Urine Yeast Present [facility] 02/09/2025 6:11 PM EDT 02/09/2025 6:16 PM EDT Narrative [facility] - 02/09/2025 6:39 PM EDT [id number], Clean Catch us Generic External Data Provider LAB URINE ORDERAB LES Final Result [facility] [address] [place] [address] [phone] * XR KUB and Upright 2 Views (02/09/2025 12:44 PM EDT) Anatomical Region Laterality Modality Radiographic Zoe ging 02/09/2025 12:4 4 PM EDT Narrative 02/09/2025 1:26 PM EDT [facility] [address] [place] [address] XRay Report Signed Patient: Brandie Santana MR#: [id number] : 1950 Acct:[id number] Age/Sex: 75 / F ADM Date: 02/09/25 Loc: SERJIO Attending Dr: Raven Polanco MD Ordering Physician: Raven Polanco Date of Service: 02/09/25 Procedure(s): XR KUB Accession Number(s): [id number] cc: Raven Polanco Reason for Exam: abdominal [...] 02/09/25 1323 DD/ 1244 TD/TT: 02/09/25 1310 Engineer Exhauster: Procedure Note Donotuseinterpreter, Image - 02/09/2025 [place] [address] XRay Report Signed Patient: Ezio SantanaR#: [id number] : 1950Acct:[id number] Age/Sex: 75 / FADM Date: 02/09/25 Loc: SERJIO Attending Dr: Raven Polanco MD Ordering Physician: Raven Polanco Date of Service: 02/09/25 Procedure(s): XR KUB Accession Number(s): [id number] cc: Raven Polanco Reason for Exam: abdominal [...] 02/09/25 1323 DD/ 1244 TD/TT: 02/09/25 1310 Engineer Exhauster: Raven Polanco MD IMG XR PROCEDURES Final [...] Media Lot # [id number] Lot# Expiration Date 63 Urine (Urine, Random) 02/09/2025 11:17 AM EDT Raven Polanco MD POINT OF CARE TEST ENTER/EDIT ORDERABLES Final Result * (ABNORMAL) POCT HEATHER-14 Urine Drug Screen (01/20/2025 10:20 AM EDT) THC Negative Negative Cocaine Screen, [...] AM EDT . Internal Pass Control Lot# [id number] Exp: 02-18-26 Pascual Terry MD POINT OF CARE TEST EN TER/EDIT ORDERABLES Final Result * Glucose, Whole Blood (01/07/2025 10:30 AM EDT) Glucose, Whole Blood 101 60 - 115 mg/dL [facility] Comment:METER #: [id number] Testing performed in the Endocrinology Department [address] , [address], [facility]. 01/07/2025 10:3 0 AM EDT 01/07/2025 10:36 AM EDT Generic External Data Provider LAB BLOOD ORDERAB LES Final Result [facility] [address] [place] [address] [phone] * (ABNORMAL) Hemoglobin A1c (01/07/2025) Hemoglobin A1C 8.3(A) 4.0 - 5.7 % Blood Venous blood specimen / Unknown Historical Provider LAB BLOOD ORDERABLES Carla l Result * Basic Metabolic Panel (01/07/2025) Glucose 101 mg/dL Blood Venous blood specimen / Unknown Result [facility] Historical Provider MD LAB BLOOD ORDERABLES Carla l Result * POCT Rapid Influenza A OSOM (01/04/2025 10:08 AM EDT) Rapid Influenza A Ag Negative Negative, Indeterminate QC Media Lot # [id number] Lot# Expiration Date Swab Nasopharyngeal structure / Unknown 01/04/2025 10:08 AM EDT Result [facility] Pascual Terry MD POINT OF CARE TEST EN TER/EDIT ORDERABLES Final Result * POCT Rapid Influenza B BALL ID NOW (01/04/2025 9:54 AM EDT) [facility] Influenza B Negative Negative, Indeterminate [facility] QC Media Lot # [id number] [facility] Lot# Expiration Date [facility] Swab 01/04/2025 9:54 AM EDT Result [facility] Pascual Terry MD POINT OF CARE TEST EN TER/EDIT ORDERABLES Final Result Performing Organization Address City/State/[facility] Co de Phone Number [facility] [address] [place] [phone] * POCT Rapid Covid-19 BALL ID NOW (01/04/2025 9:54 AM EDT) [facility] Coronavirus Antigen PCR Negative Negative, Indeterminate, None Detected, Invalid, Specimen unsatisfactory for evaluation, Weakly Positive, 2+ QC Media Lot # [id number] Lot# Expiration Date , Swab 01/04/2025 9:[address] [facility] Pascual Terry MD POINT OF CARE TEST EN TER/EDIT ORDERABLES Final Result * POCT Rapid Strep A BALL ID NOW (01/04/2025 9:51 AM EDT) [facility] Rapid Strep A Screen Negative Negative, None Detected QC Media Lot # [id number] Lot# Expiration Date Swab 01/04/2025 9:51 AM EDT us Pascual Terry MD POINT OF CARE TEST EN TER/EDIT ORDERABLES Final Result * POCT Rapid Covid-19 BinaxNOW (01/04/2025 9:51 AM EDT) Pathologist [facility] Rapid COVID Ag Negative QC Media Lot # [id number] Lot# Expiration Date Swab 01/04/2025 9:51 AM EDT Pascual Terry MD POINT OF CARE TEST EN TER/EDIT ORDERABLES Final Result * POCT Glucose (01/04/2025 9:29 AM EDT) [facility] Glucose Blood, POC 182 60 - 200 mg/dL QC Media Lot # [id number] Lot# Expiration Date Blood Capillary blood specimen / Unknown 01/04/2025 9:29 AM EDT Pascual Terry MD POINT OF CARE TEST EN TER/EDIT ORDERABLES Final Result * Hepatitis Panel, General (10/28/2024 10:04 AM EDT) [facility] Hepatitis A IgM Nonreactive Nonreactive [facility] Comment:IgM antibodies to GARCIA V not detected; does not exclude earlyacute or recovered HAV infection. ~Hepatitis B Surface Antibody NONREACTIVE Nonreactive [facility] Comment:Nonreactive: < 8.00 mIU/mL Hepatitis B Core Antibody Nonreactive Nonreactive [facility] Hepatitis C Antibody Nonreactive Nonreactive [facility] Comment:Antibodies to HCV no t detected; does not exclude early acuteHCV infection. Hepatitis B Surface Ag Negative Negative [facility] 10/28/2024 10:0 4 AM EDT 10/28/2024 3:46 PM EDT Generic External Data Provider LAB BLOOD ORDERAB LES Final Result [facility] [address] [place] [phone] * Lipid Panel, Standard (08/16/2024 9:24 AM EDT) Triglycerides 100 <150 mg/dL [facility] Comment:Desirable Triglyceri de: less than 150 mg/dLBorderline High Triglyceride 150-199 mg/dLHigh Triglyceride: 200-499 mg/dLVery High Triglyceride: greater than or equal to 5OO mg/dL Cholesterol 145 <200 mg/dL [facility] Comment:Desirable Cholestero l: less than 200 mg/dLBorderline High Cholesterol: 200-239 mg/dLHigh Cholesterol: greater than 239 mg/dL LDL Cholesterol Calculated 60 <100 mg/dL [facility] Comment:Desirable LDL: less than 100 mg/dLNear Optimal/Above Optimal LDL: 110- 129 mg/dLBorderline High LDL: 130-159 mg/dLHigh LDL: 160-189 mg/dLVery High LDL: greater than or equal to 190 mg/dL HDL Cholesterol 65 >40 mg/dL [facility] Comment:Desirable HDL: great er than 40 mg/dL Note: This HDL assay may give artificially low results in patients with liver disease. Blood Venous blood specimen / Unknown 08/16/2024 9:24 AM EDT 08/16/2024 10:57 AM EDT us Pascual Terry MD LAB BLOOD ORDERABLES Final Result [facility] [address] [place] [phone] * (ABNORMAL) Albumin, Random Urine W/Creatinine (07/02/2023 10:06 AM EDT) Creatinine, Urine 163.81 mg/dL [facility] Microalbumin Urine 59.0 mg/L [facility] Microalbum Creatinine Ratio Ur 36.0(H) <30 ug/mg cr [facility] Comment:Albumin/Creatinine R atio Reference Ranges: Normal: < 30 ug/mg creatinine Microalbuminuria: 30 - 300 ug/mg creatinineClinical Albuminuria: > 300 ug/mg creatinine 07/02/2023 10:0 6 AM EDT 07/02/2023 11:41 AM EDT us Generic External Data Provider LAB URINE ORDERAB LES Final Result [facility] [address] [place] [phone] [phone] * Colonoscopy (03/20/2018) Colonoscopy Normal Normal 03/20/2018 Narrative Sondra Rowe - 03/20/2018 9:09 AM EST Recommended 10 year follow up us Historical Provider HEALTH MAINTENANCE Edited Result - Final from Last 3 Months or Most Recently Relevant to Health Maintenance Insurance [facility] [employer] (O D-SNP) [place] [id number] DENTAL [facility] Care Teams General Teller Relationship Specialty Start Date End Date Pascual Daly MD [address] [place] [address] [place] [address] PCP - General Internal Medicine 02/22/14 Iker A 12/18/24
--- OUTSIDE RECORDS SUMMARY | 2025-03-03 12:47 | XMS_ITS | Encounter Summary ---
Author Organization [employer] Address [address] [facility] 7t [place] [address] Care Team Providers Care Shingler Name Role Phone Pascual Daly MD Primary Care Provide r Fani Heck PharmD Unavailable +8 Dasia Waters PharmD Unavailable [phone] Reason for Visit * Reason Comments Med Refill Encounter Details Date Type Department Care Team (Late st Contact Info) Description 07/20/2023 Refill [facility] [address] [place] [address] Titi Gray FNP Major depressive disorder with [...] 04/29/2025 10:00 AM EST Clinical Support [facility] [address] [place] [address] Amanda Fernández RN [address] [place] [address] 08/24/2025 10:15 AM EDT Office Visit [facility] ADULT DENTAL [address] [place] [address] Primo Gaitanaris [address] [place] [address] documented as of this encounter Goals Goal [...] documented as of this encounter Care Teams Shingler Relationship Specialty Start Date End Date Pascual Daly MD [address] [place] [address] PCP - General Internal Medicine 02/22/14 Fani Heck, PharmD [address] [place] [address] Pharmacist Internal Medicine 12/16/22 08/15/24 Dasia Waters, KristiD [address] [place] [address] Pharmacist Internal Medicine 08/16/24 01/16/25 Iker MARCUSA 12/18/24 documented as of this encounter
--- OUTSIDE RECORDS SUMMARY | 2025-03-03 12:47 | XMS_ITS | Encounter Summary ---
Author Organization [employer] Address 75 [facility] 7t [place] [address] Care Team Providers Care Wheel Setter Name Role Phone Pascual Daly MD Primary Care Provide r Fani Heck PharmD Unavailable +3 Dasia Waters PharmD Unavailable [phone] Reason for Visit * Reason Onset Date Comments Med Refill 01/13/2024 Encounter Details Date Type Department Care Team ([facility] st Contact Info) Description 01/13/2024 Telephone [facility] [address] [place], [place] [phone] Pascual Daly MD [address] [place] [address] Med Refill Social History Tobacco Use Types [...] immediate release tablet To be sent to: [facility] - [place], [place] - [address] [place] [address] documented in this encounter Plan of Treatment Upcoming Encounters Date Type Department Care Team ([facility] st Contact Info) Description 04/29/2025 10:00 AM EST Clinical Support [facility] [address] [place] [address] Amanda Fernández RN [address] [place] [address] 08/24/2025 10:15 AM EDT Office Visit [facility] ADULT DENTAL [address] [place] [address] Gabriela Gaitan [address] [place] [address] documented as of this encounter Goals Goal Patient Goal Type Associated Problems Recent Progress Patient-Stated? Author Blood Pressure < 140/90 Blood Pressure 140/84( 025 10:32 AM EDT) No Heck, Jerril, PharmD documented as of this encounter Visit Diagnoses Not on filedocumented in this encounter Additional Health Concerns Assessment Noted Time PHQ-9 Depression Total Score: 11 024 10:24 AM EST documented as of this encounter Care Teams Wheel Setter Relationship Specialty Start Date End Date Pascual Daly MD [address] [place] [address] PCP - General Internal Medicine 02/22/14 Fani Heck, PharmD [address] [place] [address] Pharmacist Internal Medicine 12/16/22 08/15/24 Dasia Waters PharmD [address] [place] [address] Pharmacist Internal Medicine 08/16/24 01/16/25 Iker VNA 12/18/24 documented as of this encounter
--- OUTSIDE RECORDS SUMMARY | 2025-03-03 12:47 | XMS_ITS | Encounter Summary ---
Author Organization [employer] Address 75 [facility] 7t [place] [address] Care Team Providers Care Printed Circuit Board Pcb Draftsman Name Role Phone Pascual Daly MD Primary Care Provide r Fani Heck PharmD Unavailable +5 Dasia Waters PharmD Unavailable [phone] Reason for Visit * Reason Comments Med Refill Encounter Details Date Type Department Care Team (Late Contact Info) Description 12/28/2022 Refill [facility] [address] [place] [address] Titi Gray FNP Major depressive disorder with [...] Description 04/29/2025 10:00 AM EST Clinical Support [facility] [address] [place] [address] Amanda Fernández RN [address] [place] [address] 08/24/2025 10:15 AM EDT Office Visit [facility] ADULT DENTAL [address] [place] [address] Gabriela Gaitan [address] [place] [address] documented as of this encounter Goals Goal [...] documented as of this encounter Care Teams Printed Circuit Board Pcb Draftsman Relationship Specialty Start Date End Date Pascual Daly MD [address] [place] [address] PCP - General Internal Medicine 02/22/14 Fani Heck, PharmD [address] [place] [address] Pharmacist Internal Medicine 12/16/22 08/15/24 Dasia Waters, PharmD [address] [place] [address] Pharmacist Internal Medicine 08/16/24 01/16/25 [place] [facility] 12/18/24 documented as of this encounter
--- OUTSIDE RECORDS SUMMARY | 2025-03-03 12:47 | XMS_ITS | Encounter Summary ---
Author Organization [employer] Address 75 [facility] 7t [place] [address] Care Team Providers Care Occupational Health Physiotherapist Name Role Phone Pascual Daly MD Primary Care Provide r Fani Heck PharmD Unavailable [phone] Dasia Waters PharmD Unavailable [phone] Reason for Visit * Reason Onset Date Comments FYI 12/31/2023 Encounter Details Date Type Department Care Team ([facility] st Contact Info) Description 12/31/2023 Telephone [facility] [address] [place] [address] Pascual Daly MD [address] [place] [address] Social History Tobacco Use Types Packs/Day Years [...] any questions you can contact Franky at [phone]. documented in this encounter Plan of Treatment Upcoming Encounters Date Type Department Care Team (Late st Contact Info) Description 04/29/2025 10:00 AM EST Clinical Support [facility] [address] [place] [address] Amanda Fernández RN [address] [place] [address] 08/24/2025 10:15 AM EDT Office Visit [facility] ADULT DENTAL [address] [place] [address] Gabriela Gaitan [address] [place] [address] documented as of this encounter Goals Goal [...] documented as of this encounter Care Teams Occupational Health Physiotherapist Relationship Specialty Start Date End Date Pascual Daly MD [address] [place] [address] PCP - General Internal Medicine 02/22/14 Fani Heck, PharmD [address] [place] [address] Pharmacist Internal Medicine 12/16/22 08/15/24 Dasia Waters PharmD [address] [place] [address] Pharmacist Internal Medicine 08/16/24 01/16/25 Iker CORDERO 12/18/24 documented as of this encounter
--- OUTSIDE RECORDS SUMMARY | 2025-03-03 12:48 | XMS_ITS | Encounter Summary ---
Author Organization [facility] Address [address] [place] [address] Care Team Providers Care Machine Heel Seat Fitter Name Role Phone Pascual Darnell MD Primary Care Provi chio Encounter Details Date Type Department Care Team (Late st Contact Info) Description 11/16/2024 Lab Requisition [facility] - Main Lab [address] [facility] [place] [phone] Vero Mike MD [address] [place] [address] Altered mental status, unspecified Social History Tobacco [...] AM EST Office Visit [facility] [place] [address] [phone] Luciano Smith DPM 175 [facility] [address] [place] [phone] documented as of this encounter Procedures Procedure [...] reflex microscopic (11/15/2024 12:20 PM EDT) Specific [place] Urine 1.012 1.003 - 1.030 LAB URINALYSIS [...] - AUTOMATED METHOD 11/16/2024 9:53 AM EDT [facility] WBC, Urine 4.4(H) 0 - 4 /HPF LAB URINALYSIS - AUTOMATED METHOD 11/16/2024 9:53 AM EDT [facility] Squamous Epithelial, Urine 42 0 - 60 /LPF LAB URINALYSIS - AUTOMATED METHOD 11/16/2024 9:53 AM EDT [facility] Bacteria, Urine Many(A) Negative /HPF LAB URINALYSIS - AUTOMATED METHOD 11/16/2024 9:53 AM EDT [facility] Hyaline Casts, Urine 1.2 0 - 3 /LPF LAB URINALYSIS - AUTOMATED METHOD 11/16/2024 9:53 AM EDT [facility] Urine Urine specimen obtained by clean catch procedure / Unknown Non-blood Collection / Unknown 11/15/2024 12:20 PM EDT 11/16/2024 9:33 AM EDT us Vero Mike MD LAB URINE ORDERABLES Final Resul t [facility] [address] [place] [address], * (ABNORMAL) Culture urine (11/15/2024 12:20 PM EDT) Culture, Urine >=100,000 CFU/mL Klebsiella pneumoniae ssp pneumoniae(A) ANA 11/18/2024 10:57 AM EDT [facility] Comment: This is an edited [...] MICROBIOLOGY - GENERAL ORDER ELIU Final Result [facility] [address] [place] [address], documented in this encounter Visit Diagnoses Diagnosis Altered mental status, unspecified documented in this encounter Care Teams Machine Heel Seat Fitter Relationship Specialty Start Date End Date Pascual Darnell MD [address] [place] [address] PCP - General Internal Medicine 06/18/24 documented as of this encounter
--- OUTSIDE RECORDS SUMMARY | 2025-03-03 12:48 | XMS_ITS | Encounter Summary ---
Author Organization [employer] Address 75 [facility] 7t [place] [address] Care Team Providers Care Coal Pulverizer Operator Name Role Phone Pascual Daly MD Primary Care Provide r Fani Heck PharmD Unavailable +6 Dasia Waters PharmD Unavailable [phone] Encounter Details Date Type Department Care Team (Late st Contact Info) Description 03/11/2022 Abstract [facility] [address] [place] [address] Fani Heck, PharmD [address] [place] [address] Social History Tobacco Use Types Packs/Day Years [...] Description 04/29/2025 10:00 AM EST Clinical Support [facility] [address] [place] [address] Amanda Fernández RN [address] [place] [address] 08/24/2025 10:15 AM EDT Office Visit [facility] ADULT DENTAL [address] [place] [address] Gabriela Gaitan [address] [place] [address] documented as of this encounter Visit Diagnoses Not on filedocumented in this encounter Care Teams Coal Pulverizer Operator Relationship Specialty Start Date End Date Pascual Daly MD [address] [place] [address] PCP - General Internal Medicine 02/22/14 Fani Heck, KristiD [address] [place] [address] Pharmacist Internal Medicine 12/16/22 08/15/24 Dasia Waters PharmD [address] [place] [address] Pharmacist Internal Medicine 08/16/24 01/16/25 Iker MARCUSA 12/18/24 documented as of this encounter
--- OUTSIDE RECORDS SUMMARY | 2025-03-03 12:48 | XMS_ITS | Encounter Summary ---
Author Organization [employer] Address 75 [facility] 7t [place] [address] Care Team Providers Care Key Attendant Name Role Phone Pascual Daly MD Primary Care Provide r Fani Heck PharmD Unavailable + Dasia Waters PharmD Unavailable [phone] Encounter Details Date Type Department Care Team (Late st Contact Info) Description 03/13/2022 Abstract [facility] [address] [place] [address] Provider, MD Bill Social History Tobacco Use [...] Description 04/29/2025 10:00 AM EST Clinical Support [facility] [address] [place] [address] Amanda Fernández RN [address] [place] [address] 08/24/2025 10:15 AM EDT Office Visit [facility] ADULT DENTAL [address] [place] [address] Gabriela Gaitan [address] [place] [address] documented as of this encounter Visit Diagnoses Not on filedocumented in this encounter Care Teams Key Attendant Relationship Specialty Start Date End Date Pascual Daly MD [address] [place] [address] PCP - General Internal Medicine 02/22/14 Fani Heck PharmD [address] [place] [address] Pharmacist Internal Medicine 12/16/22 08/15/24 Dasia Waters PharmD [address] [place] [address] Pharmacist Internal Medicine 08/16/24 01/16/25 Iker MARCUSA 12/18/24 documented as of this encounter
--- OUTSIDE RECORDS SUMMARY | 2025-03-03 12:48 | XMS_ITS | Encounter Summary ---
Author Organization [employer] Address 75 [facility] 7t [place] [address] Care Team Providers Care Grades 7 And 8 Teacher Name Role Phone Pascual Daly MD Primary Care Provide r Fani Heck PharmD Unavailable [phone] Dasia Waters PharmD Unavailable [phone] Encounter Details Date Type Department Care Team (Late st Contact Info) Description 03/11/2022 Abstract [facility] [address] [place] [address] Pascual Daly MD [address] [place] [address] Social History Tobacco Use Types Packs/Day Years [...] Description 04/29/2025 10:00 AM EST Clinical Support [facility] [address] [place] [address] Amanda Fernández RN [address] [place] [address] 08/24/2025 10:15 AM EDT Office Visit [facility] ADULT DENTAL [address] [place] [address] Gabriela Gaitan [address] [place] [address] documented as of this encounter Visit Diagnoses Not on filedocumented in this encounter Care Teams Grades 7 And 8 Teacher Relationship Specialty Start Date End Date Pascual Daly MD [address] [place] [address] PCP - General Internal Medicine 02/22/14 Fani Heck, KristiD [address] [place] [address] Pharmacist Internal Medicine 12/16/22 08/15/24 Dasia Waters PharmD [address] [place] [address] Pharmacist Internal Medicine 08/16/24 01/16/25 Iker MARCUSA 12/18/24 documented as of this encounter
--- OUTSIDE RECORDS SUMMARY | 2025-03-03 12:48 | XMS_ITS | Encounter Summary ---
Author Organization [facility] Address [address] [place] [address] Care Team Providers Care Personal Finance Instructor Name Role Phone Pascual Darnell MD Primary Care Provi chio Encounter Details Date Type Department Care Team (Late Contact Info) Description 11/23/[address] [facility] - Main Lab [address] [facility] [place] [phone] Vero Mike MD [address] [place], [place] [id number] Type 1 diabetes mellitus with hyperglycemia (CMS/HCC [...] AM EST Office Visit Orthopedic Surgery - [place] [address] [phone] Luciano Smith DPM [address] [phone] documented as of this encounter Procedures Procedure Name Priority Date/Time Associated Diagnosis Comments VITAMIN D 25 HYDROXY Routine 11/24/2024 6:16 AM EDT Type 1 diabetes mellitus with hyperglycemia (CMS/HCC V24, CMS/HCC V28) Old myocardial infarction Essential (primary) hypertension Vitamin D deficiency, unspecified COMPLETE BLOOD COUNT Routine 11/24/2024 6:16 AM EDT Type 1 diabetes mellitus with hyperglycemia ([facility] V24, [facility]/HCC V28) Old myocardial infarction Essential (primary) hypertension Vitamin D deficiency, unspecified THYROID STIMULATING HORMONE Routine 11/24/2024 6:16 AM EDT Type 1 diabetes mellitus with hyperglycemia ([facility]/HCC V24, [facility] V28) Old myocardial infarction Essential (primary) hypertension Vitamin D deficiency, unspecified HEMOGLOBIN A1C Routine 11/24/2024 6:16 AM EDT Type 1 diabetes mellitus with hyperglycemia ([facility]/HCC V24, [facility] V28) Old myocardial infarction Essential (primary) hypertension Vitamin D deficiency, unspecified VITAMIN B12 Routine 11/24/2024 6:16 AM EDT Type 1 diabetes mellitus with hyperglycemia ([facility]/HCC V24, [facility] V28) Old myocardial infarction Essential (primary) hypertension Vitamin D deficiency, unspecified COMPREHENSIVE METABOLIC PANEL Routine 11/24/2024 6:16 AM EDT Type 1 diabetes mellitus with hyperglycemia ([facility]/HCC V24, [facility] V28) Old myocardial infarction Essential [...] Final Resul t [facility] [address] [place] [address], * (ABNORMAL) Complete blood count (11/24/2024 6:16 AM EDT) WBC 8.5 4.8 - 10.8 K/mcL LAB HEMETOLOGY METHOD 11/24/2024 11:00 AM [facility] RBC 3.80 3.80 - 4.80 M/mcL LAB HEMETOLOGY METHOD 11/24/2024 11:00 AM [facility] Hemoglobin 10.4(L) 11.5 - 16.0 g/dL LAB HEMETOLOGY METHOD 11/24/2024 11:00 AM [facility] Hematocrit 32.5(L) 35.0 - 47.0 % LAB HEMETOLOGY METHOD 11/24/2024 11:00 AM [facility] MCV 86.2 79.0 - 98.0 FL LAB HEMETOLOGY METHOD 11/24/2024 11:00 AM [facility] MCH 27.6 27.0 - 32.0 pcg LAB HEMETOLOGY METHOD 11/24/2024 11:00 AM [facility] MCHC 32.0 32.0 - 37.0 g/dL LAB HEMETOLOGY METHOD 11/24/2024 11:00 AM [facility] RDW 13.1 11.0 - 15.0 % LAB HEMETOLOGY METHOD 11/24/2024 11:00 AM [facility] Platelets 345 130 - 400 K/mcL LAB HEMETOLOGY METHOD 11/24/2024 11:00 AM [facility] MPV 10.1 7.0 - 11.0 FL LAB HEMETOLOGY METHOD 11/24/2024 11:00 AM EDT [facility] NRBC 0.0 <1.0 % LAB HEMETOLOGY METHOD 11/24/2024 11:00 AM EDT [facility] NRBC Absolute 0.00 <0.10 K/mcL LAB HEMETOLOGY METHOD 11/24/2024 11:00 AM T [facility] Blood Venous blood specimen / Unknown Venipuncture / Unknown 11/24/2024 6:16 AM EDT 11/24/2024 10:24 AM EDT us Vero Mike MD LAB BLOOD ORDERABLES Final Resul t [facility] [address] [place] [address], [place] [phone] * (ABNORMAL) Comprehensive metabolic panel (11/24/2024 6:16 AM EDT) Sodium 138 133 - 145 mmol/L LAB CHEMISTRY METHOD 11/24/2024 11:35 AM [facility] Potassium 4.5 3.5 - 5.5 mmol/L LAB CHEMISTRY METHOD 11/24/2024 11:35 AM [facility] Chloride 104 96 - 110 mmol/L LAB CHEMISTRY METHOD 11/24/2024 11:35 AM [facility] CO2 28 21 - 32 mmol/L LAB CHEMISTRY METHOD 11/24/2024 11:35 AM [facility] Anion Gap 6 3 - 11 LAB CHEMISTRY METHOD 11/24/2024 11:35 AM [facility] Glucose 77 70 - 100 mg/dL LAB CHEMISTRY METHOD 11/24/2024 11:35 AM [facility] BUN 21 5 - 25 mg/dL LAB CHEMISTRY METHOD 11/24/2024 11:35 AM [facility] Creatinine 0.96 0.50 - 1.10 mg/dL LAB CHEMISTRY METHOD 11/24/2024 11:35 AM [facility] eGFR 62 >=60 mL/min/1. 73m2 LAB CHEMISTRY METHOD 11/24/2024 11:35 AM [facility] Comment:Calculation based on the Chronic Kidney Disease Epidemiology Collaboration (CKD-EPI) equation refit without adjustment for race. BUN/Creatinine Ratio 21.9 LAB CHEMISTRY METHOD 11/24/2024 11:35 AM [facility] Calcium 9.2 8.5 - 10.5 mg/dL LAB CHEMISTRY METHOD 11/24/2024 11:35 AM [facility] AST (SGOT) 18 10 - 42 unit/L LAB CHEMISTRY METHOD 11/24/2024 11:35 AM [facility] ALT (SGPT) 26 10 - 60 unit/L LAB CHEMISTRY METHOD 11/24/2024 11:35 AM [facility] Alkaline Phosphatase 99 42 - 121 unit/L LAB CHEMISTRY METHOD 11/24/2024 11:35 AM [facility] Total Protein 5.6(L) 6.0 - 8.0 g/dL LAB CHEMISTRY METHOD 11/24/2024 11:35 AM [facility] Albumin 3.3 3.2 - 5.0 g/dL LAB CHEMISTRY METHOD 11/24/2024 11:35 AM [facility] Total Bilirubin 0.3 0.0 - 1.4 mg/dL LAB CHEMISTRY METHOD 11/24/2024 11:35 AM [facility] Blood Venous blood specimen / Unknown Venipuncture / Unknown 11/24/2024 6:16 AM EDT 11/24/2024 10:32 AM EDT us Vero Mike MD LAB BLOOD ORDERABLES Final Resul t [facility] [address] [place] [address], [place] [phone] * Thyroid stimulating hormone (11/24/2024 6:16 AM EDT) [facility] TSH 1.63 0.40 - 4.00 mcIU/mL LAB CHEMISTRY METHOD 11/24/2024 1:30 PM EDT [facility] Blood Venous blood specimen / Unknown Venipuncture / Unknown 11/24/2024 6:16 AM EDT 11/24/2024 10:32 AM EDT us Vero Mike MD LAB BLOOD ORDERABLES Final Resul t Performing Organization Address City/[facility] Co de Phone Number [facility] [address] [place] [address], [place] [phone] * Vitamin D 25 hydroxy (11/24/2024 6:16 AM EDT) [facility] Vit D, 25-Hydroxy 50.1 30.0 - 80.0 ng/mL LAB CHEMISTRY METHOD 11/24/2024 1:30 PM EDT [facility] Blood Venous blood specimen / Unknown Venipuncture / Unknown 11/24/2024 6:16 AM EDT 11/24/2024 10:32 AM EDT us Vero Mike MD LAB BLOOD ORDERABLES Final Resul t Performing Organization Address City/[facility]/ZIP Co de Phone Number [facility] [address] [place] [address], [place] [phone] * (ABNORMAL) Vitamin B12 (11/24/2024 6:16 AM EDT) [facility] Vitamin B-12 979(H) 250 - 900 pcg/mL LAB CHEMISTRY METHOD 11/24/2024 11:58 AM EDT [facility] Blood Venous blood specimen / Unknown Venipuncture / Unknown 11/24/2024 6:16 AM EDT 11/24/2024 10:32 AM EDT us Vero Mike MD LAB BLOOD ORDERABLES Final Resul t [facility] ([facility]) [facility] [address] [place] [address], documented in this encounter Visit Diagnoses Diagnosis Type 1 diabetes mellitus with hyperglycemia (CMS/[facility] V24, [facility] V28) Old myocardial infarction Essential (primary) hypertension Unspecified essential hypertension Vitamin D deficiency, unspecified documented in this encounter Care Teams Personal Finance Instructor Relationship Specialty Start Date End Date Pascual Darnell MD [address] [place] [id number] PCP - General Internal Medicine 06/18/24 documented as of this encounter
== END 2025-03-03 11:55 | disposition home or self-care (01) ==
LOC: HO.HUSH 10:26
PROVIDERS: PCP Internal Medicine; Visit Provider Urology
DX: Z13.9 Encounter for screening, unspecified (principal)

== ENCOUNTER → 2025-03-03 10:25 | Outpatient (BNVA) | payer OTHER, SELFPAY | PROVIDERS: PCP Internal Medicine; Visit Provider Urology | DX: R32 Unspecified urinary incontinence (principal); R30.0 Dysuria; N39.0 Urinary tract infection, site not specified; E11.9 Type 2 diabetes mellitus without complications; Z13.9 Encounter for screening, unspecified | CPT/HCPCS: 51798; 81003; 99202 ==

== ENCOUNTER 2025-03-28 11:24 | Emergency (ER) | payer OTHER, SELFPAY ==
--- OUTSIDE RECORDS SUMMARY | 2025-03-28 10:00 | XMS_ITS | Encounter Summary ---
Author Organization [employer] Address [address] [facility] [address] [place] [address] Care Team Providers Care Career Advisor Name Role Phone Pascual Daly MD Primary Care Provide r Reason for Visit * Reason Comments Epistaxis (Nose Bleed) Encounter Details Date Type Department Care Team ([facility] st Contact Info) Description 03/28/2025 10:00 AM EST Office Visit [facility] [address] [place] [address] Momo Rizo MD [address] [place] [address] Left-sided epistaxis (Primary Dx); Hypertension, unspecified type Social History Tobacco Use Types Packs/Day Years [...] housing situation today? I have sarahy scarlett 08/12/[address] you li [...] Sign Reading Time Taken Comments Blood Pressure 163/73 03/28/2025 10:17 AM EST Pulse 88 03/28/2025 10:17 AM EST Temperature 36.7 C (98.1 F) 03/28/2025 10:17 AM EST Respiratory Rate 18 03/28/2025 10:17 AM EST Oxygen Saturation 97% 03/28/2025 10:17 AM EST Inhaled Oxygen Concentration - - Weight 71.7 kg (158 lb) 03/28/2025 10:17 AM EST Height - - Body Mass Index 31.91 02/09/2025 11:05 AM EDT documented in this encounter Progress Notes * Momo Rizo MD - 03/28/2025 10:00 AM EST Subjective Patient ID: Brandie Santana is a 75 y.o. female. Tech Brazer Tester: Geovanny BAPTISTE For 1 week ago Brandie had onset of daily left sided nosebleeds with pain at site of bleeding, worse at night. Tried OTC saline nasal spray. Takes Plavix. States home BP readings range from a little high to normal. Took medications today. No fever, cough. Lives alone. 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 Never smoked. Patient Active Problem List Diagnosis Date Noted Missing teeth, acquired 02/17/2025 Dental caries 01/26/2025 [...] malabsorption following gastrectomy 01/14/2025 Intra-abdominal abscess (CMS/HCC) ([facility]) 01/14/2025 Laceration of nose 01/14/2025 Leukocytosis 01/14/2025 Nontraumatic subluxation of extensor tendon at metacarpophalangeal joint of left hand 01/14/2025 NSTEMI (non-ST elevated myocardial infarction) ([facility]) 01/14/2025 Obesity (BMI 30-39.9) 01/14/2025 Osteoarthritis of right knee 01/14/2025 Pleural effusion, bilateral 01/14/2025 S/P laparoscopic cholecystectomy 01/14/2025 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 01/14/2025 Shortness of breath 01/14/2025 Joint swelling 01/14/2025 Swelling of knee joint, right 01/14/2025 Trigger finger, left ring finger 01/14/2025 Urinary incontinence 01/04/2025 Aphthous ulcer 09/16/2024 Coronary artery disease involving moapa coronary artery of moapa heart without angina pectoris 08/12/2024 Dental plaque [...] involving multiple sites with positive rheumatoid factor ([facility]) ([facility]) 08/27/2022 Gastroesophageal reflux disease without esophagitis 05/13/2022 Major depressive disorder with psychotic features ([facility]) ([facility]) 03/26/2022 Neuropathy, cervical 02/13/2018 Hypertension 09/02/2012 Recurrent falls 12/04/2011 Type 2 diabetes mellitus with right eye affected by mild nonproliferative retinopathy without macular edema, with long-term current use of insulin ([facility]) 04/21/1959 Eczema 04/21/1959 Fibromyalgia 04/21/1959 Hyperlipidemia 04/21/1959 Hypothyroidism 04/21/1959 Iron deficiency anemia 04/21/1959 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 The following portions of the chart were reviewed this encounter and updated as appropriate: Review of Systems Constitutional: Negative for fever. HENT: Positive for nosebleeds. Respiratory: Negative for shortness of breath. Cardiovascular: Negative for chest pain. Gastrointestinal: Negative for abdominal pain. Skin: Negative for rash. Neurological: Negative for headaches. Objective Physical Exam Constitutional: Appearance: Normal appearance. HENT: Nose: Nose normal. Comments: Red blood with slight oozing of blood visible on left anterior nasal septum. Mouth/Throat: Mouth: Mucous membranes are moist. Pharynx: Oropharynx is clear. Eyes: Conjunctiva/sclera: Conjunctivae normal. Pupils: Pupils are equal, round, and reactive to light. Cardiovascular: Rate and Rhythm: Normal rate and regular rhythm. Heart sounds: No murmur heard. Pulmonary: Effort: Pulmonary effort is normal. Breath sounds: Normal breath sounds. Musculoskeletal: General: Normal range of motion. Cervical back: No tenderness. Skin: Findings: No rash. Neurological: Mental Status: She is alert. Gait: Gait is intact. Psychiatric: Mood and Affect: Mood normal. Behavior: Behavior normal. Procedures Assessment/Plan Diagnoses and all orders for this visit: Left-sided epistaxis Has red blood with slight oozing left anterior nasal septum. Use of Plavix may be related. Referred to the ED now for further treatment. Hypertension, unspecified type Has home BP monitor. Reviewed BP parameters, given written BP log that includes BP parameters, to keep daily. Call if BP readings are elevated. documented in this encounter Plan of Treatment Upcoming Encounters Date Type Department Care Team (Late st Contact Info) Description 04/29/2025 10:00 AM EST Clinical Support [facility] [address] [place] [address] Amanda Fernández RN [address] [place] [address] 08/24/2025 10:15 AM EDT Office Visit [facility] [address] [place] [address] Kandy, Gabriela [address] [place] [address] documented as of this encounter Goals Goal Patient Goal Type Associated Problems Recent Progress Patient-Stated? Author Blood Pressure < 140/90 Blood Pressure 163/73( 025 10:17 AM EST) No Fani Heck, PharmD documented as of this encounter Visit Diagnoses Diagnosis Left-sided epistaxis- Primary Hypertension, unspecified type documented in this encounter Additional Health Concerns Assessment Noted Time PHQ-9 Depression Total Score: 12 025 9:30 AM EDT documented as of this encounter Care Teams Career Advisor Relationship Specialty Start Date End Date Pascual Daly MD [address] [place] [address] PCP - General Internal Medicine 02/22/14 Iker MARCUSA 12/18/24 documented as of this encounter
[2025-03-28 11:31] VITALS: BP 185/79; PULSE 84; RESP 18; TEMP 36.3; O2SAT 96; BMI 31.8
--- NOTE | 2025-03-28 11:39 | ED.GENADULT ---
HPI - General Adult General Chief complaint: Epistaxis Stated complaint: nosebleeds Time Seen by Provider: 03/28/25 16:14 History of Present Illness ED Provider: Roxanne Galeas NP HPI narrative: 75-year-old female medical history that is significant for DM, elevated parathyroid hormone, osteoporosis, iron deficiency anemia, rheumatoid arthritis, GERD, HLD, HTN, hypothyroidism, anxiety, depression presents to the ED with chief complaint of intermittent nosebleeds ongoing for 5 days. Patient is on antiplatelet therapy with Plavix. She reports that 5 days intermittently she has had nosebleeds, and noted yesterday evening and this morning that she had clots in her nose. She has not had any recent trauma to her nose, facial injuries. Denies any dizziness or lightheadedness, headache, facial or sinus pressure. No fever, chills, chest pain or pressure, shortness of breath or abdominal pain. Was sent to the ED for evaluation from urgent care. Related Data Home Medications ?Medication ?Instructions ?Recorded ?Confirmed clonazepam 0.5 mg tablet 1 tab PO Q8H PRN anxiety 01/02/21 01/13/25 amlodipine 10 mg tablet 10 mg PO DAILY 05/14/22 01/13/25 prazosin 2 mg capsule 6 mg PO BEDTIME 05/14/22 01/13/25 aripiprazole 20 mg tablet 20 mg PO DAILY 01/10/23 01/13/25 losartan 100 mg tablet 100 mg PO DAILY 07/30/23 01/13/25 atorvastatin 20 mg tablet 20 mg PO DAILY 08/21/23 01/13/25 gabapentin 100 mg capsule 100 mg PO BID 08/21/23 01/13/25 melatonin 3 mg tablet 3 mg PO BEDTIME 08/21/23 01/13/25 venlafaxine 75 mg capsule,extended 75 mg PO DAILY 10/07/24 01/13/25 release 24 hr clopidogrel 75 mg tablet 75 mg PO DAILY 11/09/24 01/13/25 linaclotide 145 mcg capsule 145 mcg PO DAILY 11/09/24 01/13/25 (Linzess) oxycodone 5 mg tablet 5 mg PO Q12H PRN Pain, 11/09/24 01/13/25 Moderate(Pain Scale 4-6) simethicone 125 mg chewable tablet 125 mg PO QID PRN abdominal 11/09/24 01/13/25 (Gas Relief (simethicone)) distention folic acid 1 mg tablet 1 mg PO DAILY 01/13/25 01/13/25 Previous Rx's ?Medication ?Instructions ?Recorded insulin syringe-needle U-100 0.3 #100 ea 06/13/20 mL 31 gauge x 5/16 (BD Insulin Syringe Ultra-Fine) albuterol sulfate 90 mcg/actuation 2 puff inhalation Q4-6H PRN 04/10/23 aerosol inhaler shortness of breath or wheezing #8.5 grams albuterol sulfate 2.5 mg/3 mL 2.5 mg (3 mL) inhalation Q3H PRN 04/18/23 (0.083 %) solution for nebulization sob #180 mL nebulizers #1 ea 04/18/23 acetaminophen 325 mg tablet 650 mg (2 x 325 mg) PO Q6H PRN 09/16/23 Pain, Mild (Pain Scale 1-3) #1 tab ondansetron 4 mg disintegrating 4 mg PO Q8H PRN nausea and 01/04/24 tablet vomiting #7 tabs zinc gluconate 30 mg tablet 30 mg PO DAILY #90 tabs 04/01/24 carvedilol 6.25 mg tablet 6.25 mg PO BID #180 tabs 07/22/24 blood sugar diagnostic (FreeStyle #200 strips 08/03/24 Lite Strips) glucagon 3 mg/actuation nasal 3 mg intranasal ONCE PRN 11/08/24 spray (Baqsimi) Unresponsive hypoglycemia may repeat in 15min 30 days #2 ea pen needle, diabetic 32 gauge x #200 ea 11/08/24 (Pentips Pen Needle) Fiasp FlexTouch U-100 Insulin 100 See Protocol subcut TIDAC #15 mL 01/07/25 unit/mL (3 mL) subcutaneous pen (insulin aspart (niacinamide)) blood-glucose meter (FreeStyle #1 ea 01/07/25 Lite Meter kit) insulin degludec 100 unit/mL (3 20 unit (0.2 mL) subcut DAILY #15 01/07/25 mL) subcutaneous pen (Tresiba mL FlexTouch U-100 insulin) bisacodyl 5 mg tablet,delayed 10 mg (2 x 5 mg) PO BEDTIME #60 01/11/25 release tabs prednisone 5 mg tablet 5 mg PO DIRECTED #70 tabs 01/11/25 Actemra ACTPen 162 mg/0.9 mL 162 mg (0.9 mL) subcut Q2W #1.8 mL 02/03/25 subcutaneous pen injector (tocilizumab) cephalexin 500 mg capsule 500 mg PO Q8H 7 days #21 caps 02/09/25 calcium citrate 400 mg (2 x 200 mg (950 mg)) PO 02/10/25 BID #120 tabs cholecalciferol (vitamin D3) 50 50 mcg PO DAILY #30 caps 02/10/25 mcg (2,000 unit) capsule (Vitamin D3) blood-glucose sensor (Dexcom G7 #3 ea 02/15/25 Sensor device) esomeprazole magnesium 40 mg 40 mg PO DAILY #30 caps 02/15/25 capsule,delayed release ciprofloxacin HCl 500 mg tablet 500 mg PO BID 5 days #10 tabs 03/03/25 phenazopyridine 99.5 mg tablet 99.5 mg PO Q8H PRN pain #20 tabs 03/03/25 (Azo Urinary Pain Relief) levothyroxine 125 mcg tablet 125 mcg PO DAILY@0600 #30 tabs 03/11/25 Allergies Allergy/AdvReac Type Severity Reaction Status Date / Time lorazepam (LORAZEPAM) Allergy Severe DELIRIUM Verified 03/28/25 11:36 celecoxib (From Celebrex) Allergy Intermediate ITCHING Verified 03/28/25 11:36 tramadol (TRAMADOL) Allergy Intermediate ITCHING Verified 03/28/25 11:36 zolpidem (Ambien) Allergy Unknown unknown Verified 03/28/25 11:36 Review of Systems Review of Systems: ROS is otherwise negative unless mentioned in HPI. [facility] Past Medical History Medical History Heart palpitations Hypoglycemia due to insulin Elevated parathyroid hormone Osteoporosis Hyperlipidemia (04/21/1959) Depressive disorder (04/21/1959) Nutritional anemia (04/21/1959) Shortness of breath Hypothyroidism (04/21/1959) Anemia Chronic gastritis NSTEMI (non-ST elevated myocardial infarction) Recurrent falls (12/04/11) Iron deficiency anemia (04/21/1959) Fibromyositis (04/21/1959) Eczema (04/21/1959) High risk medication use Hepatitis C antibody positive in blood Screening for osteoporosis Screening for viral disease Joint swelling Overweight (BMI 25.0-29.9) Neck pain Swelling of knee joint, right Intra-abdominal abscess Diabetes Elevated liver function tests Intestinal malabsorption following gastrectomy Obesity (BMI 30-39.9) 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 Hypertension Cholecystitis Hyperlipidemia, unspecified Essential hypertension Atherosclerotic cardiovascular disease Fibromyalgia Folliculitis Anxiety Depression History of myocardial infarction Diabetes type 1, uncontrolled Hyperparathyroidism due to vitamin D deficiency Dyslipidemia Rona's disease Hypothyroidism Surgical History Status post gastric bypass for obesity History of bypass gastroenterostomy (11/13/17) H/O gastric bypass S/P laparoscopic cholecystectomy History of esophagogastroduodenoscopy (EGD) H/O colonoscopy History of laparoscopic cholecystectomy History of bladder suspension procedure Status post laser cataract surgery of both eyes Hx of appendectomy Family History Family History Father No problems noted. Mother CVA (cerebral vascular accident) Sister Hypertension Brother Hypertension Liver cancer Social History Social History Household Members: None Housing: Apartment Are you a primary skin care specialist to a significant other at home: No Do you presently have visiting nurse or other home services: Yes Alcohol intake: never Patient Tobacco Use Status: Never used Tobacco Advance Directives: Yes Advance Directives on File: Yes Advance Directives Date on File: 09/17/23 Do you have a plan to hurt others: No Plan service: No Current occupational status: disabled Current occupation: right hand dominant Physical Exam ED Exam Exam: Nursing notes and vital signs reviewed. Constitutional: Well-appearing, NAD. Alert. Oriented X3. Eyes: EOMI. ENT: Oropharynx normal. Uvula midline. Nares patent bilaterally without evidence of active bleeding. Mildly inflamed turbinates. Neck: Normal inspection. Neck supple. CVS: Normal heart rate and rhythm. Pulses normal. Respiratory: No respiratory distress. Skin: Normal color. Extremities: No lower extremity edema. Neuro: Oriented X 3. No motor deficit. Vital Signs: Vital Signs - 24 hr 03/28/25 11:31 Temperature 97.3 F Pulse Rate 84 Respiratory Rate 18 Blood Pressure 185/79 H Pulse Oximetry 96 Oxygen Delivery Method Room Air BMI result Body Mass Index 31.8 Course Course Course Narrative: RME: 75 year female sent from clinic for left nasal bleed for the past 5 days off and on. Patient is on Plavix. Patient denies any trauma. Labs ordered. Presently almost no active bleeding from left Freeman. Medical Decision Making Medical Decision Making [facility] Narrative: water registrar Mira utilized. Well-appearing female, NAD. On exam there was no evidence of any active bleeding to the bilateral nares, She has no maxillary or frontal sinus tenderness to palpation. She reports being sent here from urgent care because she is on Plavix and has had 5 days of intermittent nosebleeds. This is in the absence of dizziness, lightheadedness, headache, etc.. Her lab work here is reassuring, H&H is stable at 11.2 and 35.4. Her lab work is overall reassuring. She was mildly hypertensive upon arrival to the ED, with a history of hypertension. Improved upon recheck. She feels well, there is no indication for additional ER workup at this time. I did recommend she places a humidifier at the head of the bed, as well as uses nasal saline, and follows up with ENT if nosebleeds persist. She was given strict return precautions to the ED, she is agreeable. Differential Diagnosis Differential Diagnoses: The differential diagnosis associated with the presentation includes Anterior versus posterior nosebleeds, dry nose, sinusitis Admission/Observation Consideration of admission/observation: Escalation of care including admission/observation considered ( not indicated) Lab Data [facility] Lab Attestation statement: I reviewed the patient's lab results. ( reassuring overall.) 03/28/25 11:48 03/28/25 11:48 Labs: Lab Results 03/28/25 Range/Units 11:48 WBC 8.5 (4.8-10.8) X10*3/uL RBC 4.10 L (4.20-5.50) X10*6/uL Hgb 11.2 L (12.0-16.0) g/dl Hct 35.4 L (37.0-47.0) % MCV 86.3 (80.0-98.0) fL MCH 27.3 (27.0-33.0) pg MCHC 31.6 (31.0-35.0) g/dl RDW 14.7 (11.0-16.0) % Plt Count 195 (160-400) X10*3/uL MPV 11.1 (9.4-12.3) fL Immature Gran % (Auto) 0.2 (0.0-0.4) % Neut % (Auto) 54.4 (45-73) % Lymph % (Auto) 26.5 (20-40) % [place] % (Auto) 7.3 (2-11) % Eos % (Auto) 10.7 H (0-4) % Baso % (Auto) 0.9 (0-2) % Lymph # (Auto) 2.3 (1.2-4.9) X10*3/uL [place] # (Auto) 0.6 (0.1-1.2) X10*3/uL Eos # (Auto) 0.9 H (0.0-0.4) X10*3/uL Baso # (Auto) 0.1 (0.0-0.2) X10*3/uL Abs Immat Gran (auto) 0.02 (0.00-0.03) X10*3/uL Absolute Neuts (auto) 4.7 (2.0-8.3) x10*3/uL Absolute Nucleated RBC 0.000 (0.0-0.012) X10*3/uL Nucleated RBC % (auto) 0.0 (0.0-0.2) /100WBC PT 10.8 L (11.2-13.5) SEC INR 0.9 (0.9-1.1) APTT 28.5 (26.7-34.1) SEC Sodium 140 (135-145) mmol/L Potassium 4.4 (3.3-5.1) mmol/L Chloride 104 (96-108) mmol/L Carbon Dioxide 26 (22-29) mmol/L Anion Gap 14 (12-20) BUN 22 H (9-16) mg/dL Creatinine 1.07 (0.5-1.4) mg/dL Estim Creat Clear Calc 39.0 Estimated GFR 50 Random Glucose 232 H (60-115) mg/dL Calcium 9.5 (8.4-10.2) mg/dL Total Bilirubin 0.4 (0.0-1.0) mg/dL AST 31 (5-31) U/L ALT 39 H (0-31) U/L Alkaline Phosphatase 94 (39-117) U/L Total Protein 6.2 L (6.5-8.0) g/dL Albumin 4.1 (3.5-5.0) g/dL Independent Historian None External Record Review External record reviewed: Office record and Outpatient record Chronic Conditions Patient?s care impacted by: Diabetes and Hypertension Social Determinants Patient?s care significantly limited by Social Determinants of Health including: Problems related to primary support group Discharge Plan Discharge Clinical Impression: H/O epistaxis Patient Disposition: Home, Self-Care Instructions: Nosebleed (ED) Additional Instructions: As we discussed, your lab work today was reassuring. You had no evidence of nose bleeding on exam. It is possible that your nosebleeds are recurring due to dryness in the air, and we recommend that you get a humidifier to leave at the head of your bed, as well as use nasal saline and Flonase as needed for dry nose. Please follow up with ENT, the Ear, Nose, Throat doctor as needed for recurrent nosebleeds. If you develop any worsening complaints at any time, such as nosebleeds that do not stop despite persistent direct pressure, dizziness or lightheadedness, chest pain, or shortness of breath, return to the ED for reassessment. Please follow up with your PCP within 1 week. I listed an ENT provider for your convenience. Alexis comentamos, los resultados de gautam an?lisis de laboratorio de hoy fueron tranquilizadores. No se observ? evidencia de sangrado nasal leno el examen. Es posible que gautam hemorragias nasales se deban a la sequedad del aire, por lo que le recomendamos que utilice un humidificador cerca de kong cama, adem?s de soluci?n salina nasal y Flonase seg?n sea necesario para la sequedad nasal. Consulte con un otorrinolaring?logo si las hemorragias nasales persisten. Si presenta alg?n s?ntoma que empeore en cualquier momento, alfonso hemorragias nasales que no cesan a pesar de aplicar presi?n directa, mareos o aturdimiento, dolor en el pecho o dificultad para respirar, regrese a la kelly de emergencias para skinny nueva evaluaci?n. Por favor, consulte con kong m?dico de cabecera en el plazo de skinny semana. Le proporcion? la informaci?n de un otorrinolaring?logo para kong conveniencia. Prescriptions: No Action (DME) insulin syringe-needle U-100 [BD Insulin Syringe Ultra-Fine] 0.3 mL 31 gauge x 5/16 syringe See Rx Instructions .ROUTE .MEDSUPPLY Qty: 100 0RF Rx Instructions: As directed 3 times per day zinc gluconate 30 mg tablet 30 mg PO DAILY Qty: 90 3RF carvedilol 6.25 mg tablet 6.25 mg PO BID Qty: 180 3RF (DME) FreeStyle Lite Strips Strip See Rx Instructions .ROUTE .COMPLEX Qty: 200 11RF Dose Instruction: TEST BLOOD SUGAR 8 TIMES EVERY DAY Rx Instructions: TEST BLOOD SUGAR 8 TIMES EVERY DAY bisacodyl 5 mg tablet,delayed release (DR/EC) 10 mg PO BEDTIME Qty: 60 6RF Actemra ACTPen 162 mg/0.9 mL pen injector 162 mg subcut Q2W Qty: 1.8 5RF calcium citrate 200 mg (950 mg) tablet 400 mg PO BID Qty: 120 4RF cholecalciferol (vitamin D3) [Vitamin D3] 50 mcg (2,000 unit) capsule 50 mcg PO DAILY Qty: 30 0RF esomeprazole magnesium 40 mg capsule,delayed release(DR/EC) 40 mg PO DAILY Qty: 30 1RF (DME) Dexcom G7 Sensor Device See Rx Instructions .ROUTE .MEDSUPPLY Qty: 3 11RF Rx Instructions: As directed every 10 days levothyroxine 125 mcg tablet 125 mcg PO DAILY@0600 Qty: 30 3RF Rx Instructions: Take Levothyroxine to 125 mcg daily for 6 days, and 1/2 tablet on the 7th day. clonazepam 0.5 mg tablet 1 tab PO Q8H PRN (Reason: anxiety) acetaminophen 325 mg Tablet 650 mg PO Q6H PRN (Reason: Pain, Mild (Pain Scale 1-3)) Qty: 1 0RF ondansetron 4 mg tablet,disintegrating 4 mg PO Q8H PRN (Reason: nausea and vomiting) Qty: 7 0RF albuterol sulfate 90 mcg/actuation HFA aerosol inhaler 2 puff inhalation Q4-6H PRN (Reason: shortness of breath or wheezing) Qty: 8.5 0RF albuterol sulfate 2.5 mg /3 mL (0.083 %) Solution For Nebulization 2.5 mg inhalation Q3H PRN (Reason: sob) Qty: 180 2RF (DME) nebulizers Misc See Rx Instructions .Route Qty: 1 0RF Rx Instructions: As directed clopidogrel 75 mg tablet 75 mg PO DAILY simethicone [Gas Relief (simethicone)] 125 mg tablet,chewable 125 mg PO QID PRN (Reason: abdominal distention) Linzess 145 mcg capsule 145 mcg PO DAILY Rx Instructions: Take first thing in the morning with a full glass of water. oxycodone 5 mg tablet 5 mg PO Q12H PRN (Reason: Pain, Moderate(Pain Scale 4-6)) Rx Instructions: Partial Fill upon patient request. cephalexin 500 mg capsule 500 mg PO Q8H 7 Days Qty: 21 0RF amlodipine 10 mg tablet 10 mg PO DAILY prazosin 2 mg capsule 6 mg PO BEDTIME aripiprazole 20 mg tablet 20 mg PO DAILY losartan 100 mg tablet 100 mg PO DAILY prednisone 5 mg tablet 5 mg PO DIRECTED Qty: 70 0RF Rx Instructions: Take 4 tablets for 7 days then 3 tablets for 7 days then 2 tablets for 7 days then 1 tablet for 7 days then stop gabapentin 100 mg capsule 100 mg PO BID melatonin 3 mg tablet 3 mg PO BEDTIME atorvastatin 20 mg tablet 20 mg PO DAILY venlafaxine 75 mg capsule,extended release 24hr 75 mg PO DAILY Baqsimi 3 mg/actuation spray,non-aerosol 3 mg intranasal ONCE PRN (Reason: Unresponsive hypoglycemia may repeat in 15min) 30 Days Qty: 2 1RF (DME) pen needle, diabetic [Pentips Pen Needle] 32 gauge x 5/32 needle See Rx Instructions .ROUTE .COMPLEX Qty: 200 7RF Dose Instruction: USE FIVE TIMES DAILY Rx Instructions: USE FIVE TIMES DAILY (DME) blood-glucose meter [FreeStyle Lite Meter] Kit See Rx Instructions .ROUTE .MEDSUPPLY Qty: 1 0RF Rx Instructions: As directed insulin degludec [Tresiba FlexTouch U-100] 100 unit/mL (3 mL) insulin pen 20 unit subcut DAILY Qty: 15 3RF Fiasp FlexTouch U-100 Insulin 100 unit/mL (3 mL) insulin pen See Protocol subcut TIDAC Qty: 15 5RF Protocol: Insulin Correction Scale Less than or equal to 110 ---- Give (units): 0 111 to 150 Give (units): 0 151 to 200 Give (units): 2 201 to 250 Give (units): 4 251 to 300 Give (units): 6 301 to 350 Give (units): 8 Greater than 350 Give (units): 10 Call MD if Blood Glucose > : 350 Rx Instructions: Breakfast dosing Fiasp 80-100 5 units 101-200 8 units 151-200 10 units 201-250 12 units 251 -300 12 units Over 300 12 units Lunch and supper 80-100 10 units 101-150 10 units 151-200 12 units 201-250 14 units 250-300 14 units over 300 lunch 14 units folic acid 1 mg tablet 1 mg PO DAILY ciprofloxacin HCl 500 mg tablet 500 mg PO BID 5 Days Qty: 10 0RF Azo Urinary Pain Relief 99.5 mg tablet 99.5 mg PO Q8H PRN (Reason: pain) Qty: 20 0RF Rx Instructions: Must administer with food Referrals: [facility] [facility] [Provider Group] Pascual Darnell MD [Primary Care Provider, Medical] Interventions: ED Discharge Assessment Last Done: 03/28/25 16:50 Discharge Date/Time: 03/28/25 16:52 Print Language: Libyan
[2025-03-28 11:52] LABS: MANUAL DIFF FLAG NO
[2025-03-28 12:00] LABS: Hematocrit 35.4 % (37.0-47.0); Hemoglobin 11.2 g/dl (12.0-16.0); Imm Gran Abs Auto 0.02 X10*3/uL (0.00-0.03); Imm Gran Pct Auto 0.2 % (0.0-0.4); Lymphocytes Absolute Auto 2.3 X10*3/uL (1.2-4.9); Mean Corpuscular HGB Conc 31.6 g/dl (31.0-35.0); Mean Corpuscular Hemoglobin 27.3 pg (27.0-33.0); Mean Corpuscular Volume 86.3 fL (80.0-98.0); NRBC Abs Auto 0.000 X10*3/uL (0.0-0.012); NRBC Pct Auto 0.0 /100WBC (0.0-0.2); Platelet Count 195 X10*3/uL (160-400); Red Blood Count 4.10 X10*6/uL (4.20-5.50); White Blood Count 8.5 X10*3/uL (4.8-10.8)
[2025-03-28 12:03] LABS: INTERNATIONAL NORM RATIO 0.9 (0.9-1.1); Prothrombin Time 10.8 SEC (11.2-13.5)
[2025-03-28 12:05] LABS: Partial Thromboplastin Time 28.5 SEC (26.7-34.1)
[2025-03-28 12:12] LABS: Alanine Aminotransferase 39 U/L (0-31); Albumin Level 4.1 g/dL (3.5-5.0); Alkaline Phosphatase 94 U/L (39-117); Anion Gap 14 (12-20); Aspartate Amino Transferase 31 U/L (5-31); Blood Urea Nitrogen 22 mg/dL (9-16); Calcium 9.5 mg/dL (8.4-10.2); Carbon Dioxide 26 mmol/L (22-29); Chloride 104 mmol/L (96-108); Creatinine Clr Calc Pharmacy 39.0; Estimated Glomerular Filt Rate 50; Potassium 4.4 mmol/L (3.3-5.1); Sodium 140 mmol/L (135-145); Total Protein 6.2 g/dL (6.5-8.0)
[2025-03-28 16:38] VITALS: BP 166/70; PULSE 89; RESP 15; TEMP 37.1; O2SAT 95
[2025-03-28 16:50] VITALS: BP 166/70; PULSE 89; RESP 15; TEMP 37.1; O2SAT 95
--- OUTSIDE RECORDS SUMMARY | 2025-03-29 01:48 | XMS_ITS | Encounter Summary ---
Author Organization [employer] Address [address] [facility] [address] [place] [address] Care Team Providers Care Wafer Cleaner Name Role Phone Pascual Daly MD Primary Care Provide r Fani Heck PharmD Unavailable [phone] Dasia Waters PharmD Unavailable [phone] Reason for Visit * Reason Comments Med Refill Encounter Details Date Type Department Care Team ([facility] st Contact Info) Description 03/27/2023 Refill [facility] [address] [place] [address] Titi Gray FNP Major depressive disorder with [...] 10:00 AM EST Clinical Support [facility] MEDICINE [address] [place] [address] Amanda Fernández RN [address] [place] [address] 08/24/2025 10:15 AM EDT Office Visit [facility] ADULT DENTAL [address] [place] [address] Kandy, Gabriela [address] [place] [address] documented as of this encounter Goals Goal [...] documented as of this encounter Care Teams Wafer Cleaner Relationship Specialty Start Date End Date Pascual Daly MD [address] [place] [address] PCP - General Internal Medicine 02/22/14 Fani Heck, PharmD [address] [place] [address] Pharmacist Internal Medicine 12/16/22 08/15/24 Dasia Waters, KristiD [address] [place] [address] Pharmacist Internal Medicine 08/16/24 01/16/25 Iker MARCUSA 12/18/24 documented as of this encounter
--- OUTSIDE RECORDS SUMMARY | 2025-03-29 01:49 | XMS_ITS | Encounter Summary ---
Author Organization [employer] Address [address] [facility] [address] [place] [address] Care Team Providers Care Technical Specialist Name Role Phone Pascual Daly MD Primary Care Provide r Fani Heck PharmD Unavailable [phone] Dasia Waters PharmD Unavailable [phone] Reason for Visit * Reason Comments Med Refill Encounter Details Date Type Department Care Team (Late st Contact Info) Description 07/20/2023 Refill [facility] MEDICINE [address] [place] [address] Titi Gray FNP Major depressive disorder with [...] Description 04/29/2025 10:00 AM EST Clinical Support [facility] MEDICINE [address] [place] [phone] Amanda Fernández RN [address] [place] [address] 08/24/2025 10:15 AM EDT Office Visit [facility] ADULT DENTAL [address] [place] [address] Primo Gaitanaris [address] [place] [address] documented as of this encounter Goals Goal Patient Goal Type Associated Problems Recent Progress Patient-Stated? Author Blood Pressure < 140/90 Blood Pressure 163/73( 025 10:17 AM EST) No Fani Heck, KristiD documented as of this encounter Visit Diagnoses Diagnosis Major depressive disorder with psychotic features (CMS/HCC) (HCC) documented in this encounter Additional Health Concerns Assessment Noted Time PHQ-9 Depression Total Score: 11 024 10:24 AM EST documented as of this encounter Care Teams Technical Specialist Relationship Specialty Start Date End Date Pascual Daly MD [address] [place] [address] PCP - General Internal Medicine 02/22/14 Fani Heck, PharmD [address] [place] [address] Pharmacist Internal Medicine 12/16/22 08/15/24 Dasia Waters, KristiD [address] [place] [address] Pharmacist Internal Medicine 08/16/24 01/16/25 Iker MARCUSA 12/18/24 documented as of this encounter
--- OUTSIDE RECORDS SUMMARY | 2025-03-29 01:49 | XMS_ITS | Encounter Summary ---
Author Organization [employer] Address [address] [facility] [address] [place] [address] Care Team Providers Care Network Controller Name Role Phone Pascual Daly MD Primary Care Provide r Fani Heck PharmD Unavailable [phone] Dasia Waters PharmD Unavailable [phone] Reason for Visit * Reason Comments Med Refill Encounter Details Date Type Department Care Team (Late Contact Info) Description 10/02/2022 Refill [facility] MEDICINE [address] [place] [address] Titi Gray FNP Major depressive disorder with [...] 10:00 AM EST Clinical Support [facility] MEDICINE [address] [place] [address] Amanda Fernández RN [address] [place], [place] [phone] 08/24/2025 10:15 AM EDT Office Visit [facility] ADULT DENTAL [address] [place] [address] Gabriela Gaitan [address] [place] [address] documented as of this encounter Goals Goal [...] as of this encounter Care Teams Network Controller Relationship Specialty Start Date End Date Pascual Daly MD [address] [place] [phone] PCP - General Internal Medicine 02/22/14 Fani Heck, PharmD [address] [place] [phone] Pharmacist Internal Medicine 12/16/22 08/15/24 Dasia Waters, KristiD [address] [place] [phone] Pharmacist Internal Medicine 08/16/24 01/16/25 [facility] [facility] 12/18/24 documented as of this encounter
--- OUTSIDE RECORDS SUMMARY | 2025-03-29 01:49 | XMS_ITS | Encounter Summary ---
Author Organization [employer] Address [address] [facility] [address] [place] [address] Care Team Providers Care Shipping Clerk Crating Name Role Phone Pascual Daly MD Primary Care Provide r Fani Heck PharmD Unavailable [phone] Dasia Waters PharmD Unavailable [phone] Reason for Visit * Reason Comments Med Refill Encounter Details Date Type Department Care Team (Late Contact Info) Description 12/28/2022 Refill [facility] MEDICINE [address] [place] [address] Titi Gray FNP Major depressive disorder with [...] Description 04/29/2025 10:00 AM EST Clinical Support [facility] MEDICINE [address] [place] [address] Amanda Fernández RN [address] [place] [address] 08/24/2025 10:15 AM EDT Office Visit [facility] ADULT DENTAL [address] [place] [address] Gabriela Gaitan [address] [place] [address] documented as of this encounter Goals Goal [...] documented as of this encounter Care Teams Shipping Clerk Crating Relationship Specialty Start Date End Date Pascual Daly MD [address] [place] [id number] PCP - General Internal Medicine 02/22/14 Fani Heck, PharmD [address] [place] [phone] Pharmacist Internal Medicine 12/16/22 08/15/24 Dasia Waters, PharmD [address] [place] [phone] Pharmacist Internal Medicine 08/16/24 01/16/25 [facility] 12/18/24 documented as of this encounter
--- OUTSIDE RECORDS SUMMARY | 2025-03-29 01:49 | XMS_ITS | Data Portability ---
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 Plan of Treatment Reminders Order Date Submit Date Provider Last Modified By Organization Details Last Modified Time Details Appointments None recorded. Lab None recorded. Referral None recorded. Procedures None recorded. Surgeries None recorded. Imaging None recorded. Medication Orders oxycodone 5 mg tablet 2023 024 [facility] , [address] [place] [address], [address], 4 21:23:28 oxycodone 5 mg tablet 2023 024 [facility] , [address] [place] [address], [address], 4 13:28:18 Patient TargetsNo targets recorded. Patient InstructionsNo instructions recorded. Reason for Referral None Reported. 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 Dori Pena NP [address], [address], [place], [address], [email or web address] 4 15:49:21 Hypertensive disorder 58927859 Active 2023 Dori Pena NP [address], [address], [place], [address], [facility] 4 15:49:57 Gastroesophage al reflux disease 268533607 Active 2023 Dori Pena NP [address], [address], [place], [address], [facility] 4 15:51:24 Rheumatoid arthritis 86622796 Active 2023 Dori Pena NP [address], [address], [place], [address], [facility] 4 15:51:29 Mixed anxiety and depressive disorder 533437628 Active 2023 Dori Pena NP [address], [address], [place], [address], [facility] 4 15:51:45 Obesity 555158318 Active 2023 Dori Pena NP [address], [place], [address], [facility] 4 15:51:51 Closed flail chest 621307186 Active 2023 Dori Pena NP [address], [address], [place], [address], [facility] 4 15:52:35 Asthenia 56110804 Active 2023 Dori Pena NP [address], [address], [place], [address], [facility] 4 15:52:46 Irritable bowel syndrome 10763337 Active 2023 Dori Pena NP [address], [place], [address], [facility] 4 16:06:46 Recurrent falls 257495599 Active 2023 Dori Pena NP [address], [address], [place], [address], [facility] 4 16:38:03 Problem Notes None recorded. Procedures Surgical History Date Name Laterality Status Provider Name and Address Organization Details Recorded Time bypass gastroenterostomy completed Dori Pena NP [address] [facility] [address], [address], [place], [address], [facility] 09/17/2023 15:40:41 Laparoscopic cholecystectomy completed Dori Pena NP [address], [address], [place], [address], [facility] 09/17/2023 15:41:25 fixed suspension procedure of urinary bladder neck completed Dori Pena NP [address], [address], [place], [address], [facility] 09/17/2023 15:42:01 Appendectomy completed Dori Pena NP [address] [address], [address], [place], [address], [facility] 09/17/2023 15:42:11 bilateral cataract surgery completed Dori Pena NP [address], [address], [place], [address], [facility] 09/17/2023 15:42:26 Imaging Results None recorded. Procedure Notes None recorded. Medical Equipment None Reported. Allergies Allergen ID Allergen Name Allergen Category Reaction Reaction Severity Criticality Documentation Date Start Date Code Code System Note Provider Name and Address Organization Details Recorded Time 73073 celecoxib medicatio n other Not available unabletoasse 09/17/2023 37255 7 RxNorm unkno wn Dori Pena NP [address] [facility] [address], [address], [place], [address], [facility] 4 15:37:14 16093 lorazepam medicatio n other Not available unabletoasse 09/17/2023 6470 RxNorm unkno wn Dori Pena NP [address], [address], [place], [address], [facility] 4 15:37:29 88182 tramadol medicatio n other Not available unabletoasse 09/17/2023 23830 RxNorm unkno wn Dori Pena NP [address], [address], [place], [address], [facility] 4 15:37:42 54102 zolpidem medicatio n other Not available unabletoasse 09/17/2023 86526 RxNorm unkno wn Dori Pena NP [address], [address], [place], [address], [facility] 4 15:37:56 Medications Name Sig Start Date [...] rate Respiratory rate Body temperature Oxygen saturation Systolic And Diastolic Provider Name and Address Organization Details Last Updated DateTime 4 39510.7 8 g 98 /min 18 /min 97.8 [degF] 94 % 150/77 mm[Hg] Dori Pena NP [address] [facility] [address], [address], [place], [address], [facility] 4 10:49:41 Date Recorded Body weight Heart rate Respiratory rate Body temperature Oxygen saturation Systolic And Diastolic Provider Name and Address Organization Details Last Updated DateTime 4 93115.7 8 g 83 /min 18 /min 97 [degF] 98 % 148/74 mm[Hg] Dori Pena NP [address] [facility] [address], [address], [place], [address], [facility] 4 13:29:12 Date Recorded Body weight Heart rate Respiratory rate Body temperature Oxygen saturation Systolic And Diastolic Provider Name and Address Organization Details Last Updated DateTime 4 18262.7 8 g 76 /min 18 /min 97.8 [degF] 97 % 128/78 mm[Hg] Dori Pena NP [address] [facility] [address], [address], [place], [address], [facility] 4 12:05:35 Date Recorded Body weight Heart rate Respiratory rate Body temperature Oxygen saturation Systolic And Diastolic Provider Name and Address Organization Details Last Updated DateTime 4 15165 g 80 /min 18 /min 98 [degF] 95 % 111/60 mm[Hg] Dori Pena NP [address] [facility], [address], [place], [address], [facility] 4 11:40:36 Date Recorded Body weight Heart rate Respiratory rate Body temperature Oxygen saturation Systolic And Diastolic Provider Name and Address Organization Details Last Updated DateTime 4 52473 g 74 /min 18 /min 98.4 [degF] 95 % 124/68 mm[Hg] Dori Pena NP [address] [facility] [address], [address], [place], [address], [facility] 4 13:12:09 Social History Question Answer Notes LastModified by Organizat ion Details LastModified Time Tobacco Smoking Status Never Smoker Dori Pena NP [address], [address], [place], [address], [facility] 09/17/2023 15:39:38 Do You Have An [...] Healthcare [facility] 09/19/2023 16:11:12 Tdap 4 completed Radha Jerman [facility] 09/19/2023 16:11:26 Td(adult) unspecified formulation 3 completed Radha Jerman [facility] 09/19/2023 16:11:43 Td(adult) unspecified formulation 3 completed Radha King [facility] 09/19/2023 16:11:51 Pneumococcal conjugate PCV 13 6 completed Radha King [facility] 09/19/2023 16:12:53 Pneumococcal conjugate PCV20, polysaccharide RYV999 conjugate, adjuvant, PF 4 completed Radha Jerman [facility] 09/19/2023 16:13:07 pneumococcal polysaccharide PPV23 1 completed Radha Jerman [facility] 09/19/2023 16:13:22 pneumococcal polysaccharide PPV23 4 completed Radha Jerman [facility] 09/19/2023 16:13:31 influenza, unspecified formulation 2 completed Radha Jerman [facility] 09/19/2023 16:13:47 influenza, unspecified formulation 3 completed Radha Jerman [facility] 09/19/2023 16:13:55 MMR 8 completed Radha Jerman [facility] 09/19/2023 16:14:21 SARS-COV-2 (COVID-19) vaccine, UNSPECIFIED 1 completed Radha Jerman [facility] 09/19/2023 16:15:58 SARS-COV-2 (COVID-19) vaccine, UNSPECIFIED 1 completed Radha [facility] 09/19/2023 16:16:13 SARS-COV-2 (COVID-19) vaccine, UNSPECIFIED 1 completed Radha [facility] 09/19/2023 16:16:27 SARS-COV-2 (COVID-19) vaccine, UNSPECIFIED 2 completed Radha [facility] 09/19/2023 16:17:15 SARS-COV-2 (COVID-19) vaccine, UNSPECIFIED 2 completed Radha [facility] 09/19/2023 16:21:38 zoster, unspecified formulation 5 completed Radha [facility] 09/19/2023 16:23:04 zoster, unspecified formulation 9 completed Radha [facility] 09/19/2023 16:23:18 zoster, unspecified formulation 9 [facility] 09/19/2023 16:25:18 Past Encounters Encounter ID Performer Location Encounter Start Date Encounter Closed Date Diagnosis/Indication Diagnosis SNOMED-CT Code Diagnosis ICD10 Code Diagnosis IMO Codes Diagnosis Note [id number] Dori Pena NP [address] [address] 09/17/2023 15:22:09 09/23/2023 14:50:24 Closed flail chest 054497648 S22.5XXD with multiple rib fractures and clavicular [...] If stable no further workup needed. 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 IBSlinzess 290 mcg q ammonitor Deficiency anemias 79031 3007 D53.9 folic acidvit l54lwehkio Coronary arteriosclerosis 33465354 I25.10 hx of MIatorvast atin 20 mg po dailyclopi dogrel 75 mg po q amsee above htn medsmonito r Recurrent falls 39849986 2 R29.6 reports history of falls with healthcare facility administrator at home to help her and balance issuesrepo rts more than 5 falls/year supportive caremonito r [id number] JESSICA HINDS NP [place] [id number] [place], [place] [address] 09/18/2023 13:29:08 09/23/2023 15:13:15 Closed flail chest 930307601 S22.5XXD with multiple rib fractures and clavicular [...] If stable no further workup needed. Asthenia 07743129 R53.1 with notable weakness due to injuryPT OT eval and treatsuppo rtive caremonito r Type 1 frank betes mellitus 38749822 E10.9 A1C 8.8%Contin eu:tresiba 30 unit sc qhsinsulin 2-14 SSI sc qidmonitor BS and adjust as needed Hypertensive disorder 38 727866 I10 amlodipine 10 mg po dailylosar zaragoza 100 mg po dailycoreg 6.25 mg bidmonitor bp/vitals 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 263992 E06.3 levothyrox ine 112 mcg dailymonit or tsh as needed Gastroesop hageal reflux disease 926796244 K21.9 esomeprazo le 40 mg o daily Deficiency anemias 36189 3007 D53.9 folic acidvit i49mqdkydo Obesity 525207897 E66.9 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 IBSlinzess 290 mcg q ammonitor Coronary arteriosclerosis 91099895 I25.10 hx of MIatorvast atin 20 mg po dailyclopi dogrel 75 mg po q amsee above htn medsmonito r Recurrent falls 19851352 2 R29.6 reports history of falls with healthcare facility administrator at home to help her and balance issuesrepo rts more than 5 falls/year supportive caremonito r [id number] [facility] [address] 09/22/2023 14:27:57 09/29/2023 19:16:34 Closed flail chest 987410173 S22.5XXD with multiple rib fractures and clavicular [...] If stable no further workup needed. Asthenia 75585491 R53.1 with notable weakness due to injuryPT OT eval and treatsuppo rtive caremonito r Type 1 frank betes mellitus 56698105 E10.9 BS 81-252 ghurguN5V 8.8%contin ue:tresiba 30 unit sc qhsinsulin 2-14 SSI sc qidmonitor BS and adjust as needed Hypertensive disorder 38 667642 I10 improving lately, boderline highcontam lodipine 10 mg po dailylosar zaragoza 100 mg po dailycoreg 6.25 mg bidmonitor bp/vitals 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 276961 E06.3 contlevoth yroxine 112 mcg dailymonit or tsh as needed Gastroesop hageal reflux disease 475310665 K21.9 esomeprazo le 40 mg o daily Deficiency anemias 46394 3007 D53.9 folic acidvit p03lekzyjg Obesity 349322066 E66.9 public works commissioner [facility] n controlmon itor weight Mixed anxi ety and depressive disorder 325278845 F41.8 contaripip razole 20 mg dailyvenla faxine 150 mg po dailyprazo sin 6 mg po qhsmelaton in 3 mg po qhshydroxy zine 10 mg po q 8 hours prn anxietyclo nazepam 0.5 mg po q 8 hours prn anxietymon itor Rheumatoid arthritis 698 93397 M06.9 enbrel 50 mg sc q 7dayscalci um citrate 400 mg po bidmonitor for reliefsee pain management above with flail chest Irritable bowel syndrome 01032329 K58.9 ? IBSlinzess 290 mcg q ammonitor Coronary arteriosclerosis 33885783 I25.10 hx of MIatorvast atin 20 mg po dailyclopi dogrel 75 mg po q amsee above htn medsmonito r Recurrent falls 85526537 2 R29.6 reports history of falls with healthcare facility administrator at home to help her and balance issuesrepo rts more than 5 falls/year supportive caremonito r Acute cystitis 29119017 N30.00 reports dysuria and occassiona l incontinen ce latelyurin e culture returned showing > 100,000 klebsiella pneumo ssp and started on ceftriaxon e 1gram IM and cefpodoxim e 200 mg po bid x 7 days with probiotic by on provider over the weekend.mo nitor [id number] Jonel Alamo MD [address] [address] 09/23/2023 11:01:43 09/29/2023 19:25:59 Closed fracture of multiple left ribs 2167697678 7626486 S22.42XG see HPIleft rib fxs 2-6 with concern for flail chest , with clavicular fxeval by surgery with no interventi on indicatedm onitor respirator y statusutil ize incentive spirometer monitor for pain controlupd ate surgery with concerns Asthenia 19976710 R53.1 PT OT eval and treatmonit or need for increased support in community Type 1 frank betes mellitus 20995389 E10.9 tresiba 30 units qdSS insulinmon itor glucose and need to titrate Hypertensive disorder 38 199672 I10 norvasc 10 mg qdcoreg 6.25 mg bidlosarta n 100 mg qdcurrentl y elevatedmo nitor need for increased control 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 429908 E06.3 hx of added to PMHmaintai priscilla onsynthroi d 112 mcg qdmonitor tsh prn Gastroesop hageal reflux disease 648249362 K21.9 nexium 40 mg qd continuedm onitor for effect Obesity 344449787 E66.09 dietary eval in patient with baseline DM Mixed anxi ety and depressive disorder 374651040 F41.8 carrying dx requiring multiple medication swill continue out patient medication s includinga bility and ativanmoni tor moodpsych eval prn Rheumatoid arthritis 698 18735 M06.9 remains onenbrel 50 mg q friday Irritable bowel syndrome 01817931 K58.9 ? IBSlinzess 290 mcg q ammonitor Coronary arteriosclerosis 81378801 I25.10 hx of MIatorvast atin 20 mg po dailyclopi dogrel 75 mg po q amsee above htn medsmonito r Recurrent falls 02165095 2 R29.6 reports history of falls with healthcare facility administrator at home to help her and balance issuesrepo rts more than 5 falls/year supportive caremonito r Solitary n odule of lung 040394508 R91.1 question right 4 mm upper lobe nodulecons ider repeat scan in 6-12 months Primary insomnia 6019842 F51.01 continue melatoninm onitor need to titrate Abnormal weight loss 267 282499 R63.4 weight dropped > 12 lbs in a few days from admitappea rs to be error in initial intake weightwill monitor Acute cystitis 48596495 N30.00 now on cefpodoxim e to complete coursemoni tor for recurrent disease [id number] Dori Pena NP [facility] [address] [address] 09/24/2023 09:21:20 09/29/2023 19:39:42 Closed fracture of multiple left ribs 6283717412 2510858 S22.42XG with multiple rib fractures and clavicular [...] in am off pmadjust as needed. Asthenia 98439214 R53.1 PT OT eval and treatmonit or need for increased support in community Type 1 frank betes mellitus 14931298 E10.9 BS controlled conttresib a 30 units qdSS insulinmon itor glucose and need to titrate Hypertensive disorder 38 304111 I10 stable on below regimennor vasc 10 mg qdcoreg 6.25 mg bidlosarta n 100 mg qdcurrentl y elevatedmo nitor need for increased control 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 862378 E06.3 hx of added to PMHmaintai priscilla onsynthroi d 112 mcg qdmonitor tsh prn Gastroesop hageal reflux disease 737546762 K21.9 nexium 40 mg qd continuedm onitor for effect Obesity 677050231 E66.09 dietary eval in patient with baseline DM Rheumatoid arthritis 698 19942 M06.9 remains onenbrel 50 mg q brittney Irritable bowel syndrome 92706438 K58.9 ? IBSlinzess 290 mcg q ammonitor Coronary arteriosclerosis 09217886 I25.10 hx of MIatorvast atin 20 mg po dailyclopi dogrel 75 mg po q amsee above htn medsmonito r Recurrent falls 91056271 2 R29.6 reports history of falls with healthcare facility administrator at home to help her and balance issuesrepo rts more than 5 falls/year supportive caremonito r Primary insomnia 1702121 F51.01 continueme latoninmon itor need to titrate Abnormal weight loss 267 847153 R63.4 weight dropped > 12 lbs in a few days from admitappea rs to be error in initial intake weight6/5 reweigh pt todaywill monitor Acute cystitis 17694853 N30.00 now on cefpodoxim e to complete courseaysm ptomaticmo nitor for recurrent disease [id number] Dori Pena NP [address] [address] 09/29/2023 10:39:23 10/03/2023 11:24:38 Closed fracture of multiple left ribs 6894776304 4356044 S22.42XG with multiple rib fractures and clavicular [...] to left shoulderad just as needed. Asthenia 24423800 R53.1 PT OT eval and treatmonit or need for increased support in community Type 1 frank betes mellitus 19799610 E10.9 BS controlled conttresib a 30 units qdSS insulinmon itor glucose and need to titrate Hypertensive disorder 38 142671 I10 stable on below regimen with slightly high bp likley related to pain, monitorcon tnorvasc 10 mg qdcoreg 6.25 mg bidlosarta n 100 mg qdcurrentl y elevatedmo nitor need for increased control 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 042783 E06.3 hx of added to PMHmaintai priscilla onsynthroi d 112 mcg qdmonitor tsh prn Gastroesop hageal reflux disease 885874995 K21.9 contnexium 40 mg qdmonitor for effect Obesity 798535530 E66.09 dietary evalbaseli ne DMweight today please Rheumatoid arthritis 698 30143 M06.9 remains onenbrel 50 mg q friday Irritable bowel syndrome 02880087 K58.9 ? IBSlinzess 290 mcg q ammonitor Coronary arteriosclerosis 87800002 I25.10 hx of MIatorvast atin 20 mg po dailyclopi dogrel 75 mg po q amsee above htn medsmonito r Recurrent falls 71050555 2 R29.6 reports history of falls with healthcare facility administrator at home to help her and balance issuesrepo rts more than 5 falls/year supportive caremonito r Primary insomnia 2624604 F51.01 continueme latoninmon itor need to titrate Abnormal weight loss 267 549784 R63.4 weight dropped > 12 lbs in a few days from admitappea rs to be error in initial intake weight6/10 reweigh pt todaywill monitor Acute cystitis 31204801 N30.00 resolved cefpodoxim e to complete courseaysm ptomaticmo nitor for recurrent disease Mixed anxi ety and depressive disorder 860006504 F41.8 contaripip razole 20 mg dailyvenla faxine 150 mg po dailyprazo sin 6 mg po qhsmelaton in 3 mg po qhshydroxy zine 10 mg po q 8 hours prn anxiety6/1 0 renew clonazepam 0.5 mg po q 8 hours prn anxietymon itor [id number] Dori Pena NP [address] [address] 10/02/2023 13:28:32 10/07/2023 10:08:18 Hypertensive disorder 99503932 I10 stable on below regimen as it comes down to 120s systolic post medication contnorvas c 10 mg qdcoreg 6.25 mg bidlosarta n 100 mg qdmonitor need for increased control Closed fra cture of multiple left ribs 1521446872 2592280 S22.42XG with left rib fxs 2-6 with [...] OT eval and txadjust as needed. Asthenia 24728800 R53.1 PT OT eval and treatmonit or need for increased support in community Type 1 frank betes mellitus 07100879 E10.9 BS controlled glucernaco nttresiba 30 units qdSS insulinmon itor glucose and need to titrate Gastroesop hageal reflux disease 985495438 K21.9 contnexium 40 mg qdmonitor for effect Rheumatoid arthritis 698 75070 M06.9 remains onenbrel 50 mg q brittney Irritable bowel syndrome 70879230 K58.9 ? IBSlinzess 290 mcg q ammonitor Coronary arteriosclerosis 60174445 I25.10 hx of MIcoreg 6.25 mg po bidatorvas tatin 20 mg po dailyclopi dogrel 75 mg po q amsee above htn medsmonito r Recurrent falls 45666378 2 R29.6 reports history of falls with healthcare facility administrator at home to help her and balance issuesrepo rts more than 5 falls/year supportive care and therapy here for balance, strengthen ing, gait, mobility, endurancem onitor Abnormal weight loss 267 849409 R63.4 weight dropped > 12 lbs in a few days from admitappea rs to be error in initial intake weight09/28 reweigh pt today10/01 reweight pt today, no weight since 09/21will monitor Mixed anxi ety and depressive disorder 182333379 F41.8 contaripip razole 20 mg dailyvenla faxine 150 mg po dailyprazo sin 6 mg po qhsmelaton in 3 mg po qhshydroxy zine 10 mg po q 8 hours prn anxiety09/19 0 renew clonazepam 0.5 mg po q 8 hours prn anxiety x 14 days10/01 cont as abovemonit or [id number] [facility] [address] 10/06/2023 12:02:36 10/09/2023 09:34:42 Closed fracture of multiple left ribs 8639538520 9622566 S22.42XG with left rib fxs 2-6 with [...] txadjust as needed. Abnormal weight loss 267 611838 R63.4 weight dropped > 12 lbs in a few days from admitappea rs to be error in initial intake weight10/04 160 lbs which is same as 09/22/23will monitor Hypertensive disorder 38 289766 I10 stable on below regimen as it comes down to 120s systolic post medication contnorvas c 10 mg qdcoreg 6.25 mg bidlosarta n 100 mg qdmonitor need for increased control Asthenia 14246181 R53.1 PT OT eval and treatmonit or need for increased support in community Type 1 frank betes mellitus 55071921 E10.9 pt having syrup and gingerale at [...] and need to titrate Rheumatoid arthritis 698 52775 M06.9 remains onenbrel 50 mg q friday Irritable bowel syndrome 38629548 K58.9 with constipati on today, states many days10/05 mon given today, will do supp if no bm by 4 pm10/05 start senna 8.6 mg po daily? IBSlinzess 290 mcg q ammonitor Coronary arteriosclerosis 04489643 I25.10 hx of MIcoreg 6.25 mg po bidatorvas tatin 20 mg po dailyclopi dogrel 75 mg po q amsee above htn medsmonito r Mixed anxi ety and depressive disorder 873462970 F41.8 contaripip razole 20 mg dailyvenla faxine 150 mg po dailyprazo sin 6 mg po qhsmelaton in 3 mg po qhshydroxy zine 10 mg po q 8 hours prn anxiety09/19 0 renew clonazepam 0.5 mg po q 8 hours prn anxiety x 14 days10/01 cont as above10/05 stable today with above planmonito r [id number] Dori Pena NP [address] [address] 10/08/2023 11:40:06 10/15/2023 15:50:32 Type 1 diabetes mellitus 17448000 E10.9 pt having syrup and gingerale at [...] and need to titrate Irritable bowel syndrome 46860424 K58.9 with constipati on resolved with mom on 7 mon given today10/05 start senna 8.6 mg po daily? IBSlinzess 290 mcg q am10/07 having bm regularly nowmonitor Closed fra cture of multiple left ribs [id number] 4792064 S22.42XG with left rib fxs 2-6 with [...] txadjust as needed. Abnormal weight loss 267 247169 R63.4 weight dropped > 12 lbs in a few days from admitappea rs to be error in initial intake weight10/04 160 lbs which is same as 09/22/23, ? incorrect admit weight but seems stable nowwill monitor Hypertensive disorder 38 442298 I10 stable on below regimen as it comes down to 120s systolic post medication contnorvas c 10 mg qdcoreg 6.25 mg bidlosarta n 100 mg qdmonitor need for increased control Asthenia 06063645 R53.1 PT OT eval and treatmonit or need for increased support in community Rheumatoid arthritis 698 77162 M06.9 remains onenbrel 50 mg q friday Coronary arteriosclerosis 10188804 I25.10 hx of MIcoreg 6.25 mg po bidatorvas tatin 20 mg po dailyclopi dogrel 75 mg po q amsee above htn medsmonito r Mixed anxi ety and depressive disorder 380377055 F41.8 contaripip razole 20 mg dailyvenla faxine 150 mg po dailyprazo sin 6 mg po qhsmelaton in 3 mg po qhshydroxy zine 10 mg po q 8 hours prn anxiety/ 0 renew clonazepam 0.5 mg po q 8 hours prn anxiety x 14 days10/01 cont as above10/05 stable today with above plan10/07 stable today with above planmonito r Hyperkalemia 42203087 E8 7.5 k of 5.7 on give kayexalate 15 gm today10/08 bmp in ammonitor for additional e lyte abbormalit ies [id number] Dori Pena NP [address] [address] 10/09/2023 13:08:06 10/15/2023 16:27:22 Closed fracture of multiple left ribs [id number] S22.42XG resolving with left rib fxs 2-6 [...] prnadjust as needed outpt with pcp Hyperkalemia 85913150 E8 7.5 k of 5.7 on give kayexalate 15 gm on 10/07monito r for additional e lyte abnormalit ies outpt with pcp Type 1 frank betes mellitus 00343180 E10.9 BS slightly high while at rehab with eating sugary foods/drin ksPlan: diet sodas and diet syrup and less sugary choicescon tglucernat resiba 30 units qdSS insulin with meals as per home schedmonit or glucose and need to titrate outpt with pcp outpt Irritable bowel syndrome 50214380 K58.9 with constipati on resolvedse nna 8.6 mg po daily (started at rehab)? IBSlinzess 290 mcg q ammonitor with pcp outpt Abnormal weight loss 267 713376 R63.4 weight dropped > 12 lbs in a few days from admitappea rs to be error in initial intake weight16 160 lbs which is same as 09/22/23, ? incorrect admit weight but seems stable nowmonitor oupt with pcp Hypertensive disorder 38 639262 I10 stable on below regimen as it comes down to 120s systolic post medication contnorvas c 10 mg qdcoreg 6.25 mg bidlosarta n 100 mg qdmonitor need for increased control outpt with pcp Asthenia 23911667 R53.1 PT OT eval and treat outpt prnmonitor need for increased support in community with pcp Rheumatoid arthritis 698 18881 M06.9 remains onenbrel 50 mg q fridaymoni tor outpt with pcp Coronary arteriosclerosis 70177069 I25.10 hx of MIcoreg 6.25 mg po bidatorvas tatin 20 mg po dailyclopi dogrel 75 mg po q amsee above htn medsmonito r outpt wtih pcp 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 contaripip razole 20 mg dailyvenla faxine 150 mg po dailyprazo sin 6 mg po qhsmelaton in 3 mg po qhshydroxy zine 10 mg po q 8 hours prn anxietyclo nazepam 0.5 mg po q 8 hours prn anxietymon itor outpt with pcp Gastroesop hageal reflux disease 988035112 K21.9 contnexium 40 mg qdmonitor for effect outpt with pcp Recurrent falls 67320896 2 R29.6 reports history of falls with healthcare facility administrator at home to help her and balance issuesrepo rts more than 5 falls/year supportive care and therapy here for balance, strengthen ing, gait, mobility, endurance outpt rpnmonitor outpt with pcp 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 263749 E06.3 hx of added to PMHmaintai priscilla onsynthroi d 112 mcg qdmonitor tsh prn with pcp Obesity 946206187 E66.09 dietary evalbaseli ne DMweight to be monitored with pcp outpt Primary insomnia 9898243 F51.01 continueme latoninmon itor need to titrate outpt Acute cystitis 86718957 N30.00 resolved cefpodoxim e to complete courseaysm ptomaticmo nitor for recurrent disease outpt with pcp Health Concerns Section Related Observation LastModified by Organization Detai ls LastModified Time None Recorded Concern Status LastModified by Organization Details LastModified Time None Recorded Advance Directives Directive N: Payers Insurance Date Sequence Insurance Name Policy Number Policy Patten Covered Member ID Patten Member ID Guarantor Name 10/15/2023 1 [facility] - DOS ON OR AFTER 2022 - MEDICARE ADVANTAGE [place] (MEDICARE REPLACEMENT/ADV ANTAGE - PPO) Brandie Luevano [id number] Brandie Luevano Notes Date Note Type Note [...] NP [address] [facility], [address], [place], [address], [facility] 09/29/2023 11:09:33 10/02/2023 text/html ROS as noted [...] is sitting up in bed with her [employer] visiting. She has her sling in place [...] NP [address] [facility], [address], [place], [address], [employer] 10/02/2023 13:48:50 10/06/2023 text/html ROS as noted in the HPI Pt is seen for an acute rounding visit. Brandie is working here at [facility] and is feeling good and more mobile lately with left sling in place. She continues with therapy and making gains. She was treated for a UTI when she first came to [facility] and denies any urinary symptoms. Nursing noted [...] NP [address] [facility], [address], [place], [address], [facility] 10/06/2023 12:26:22 10/08/2023 text/html ROS as noted [...] in a sling for comfort. While at [facility]:She was treated for a UTI when she first came to [facility] and denies any urinary symptoms. Nursing noted [...] NP [address] [facility], [address], [place], [address], [facility] [email or web address] 10/08/2023 12:05:52 10/09/2023 text/html ROS as noted [...] in a sling for comfort. While at [facility]:She was treated for a UTI when she first came to [facility] and denies any urinary symptoms. Nursing noted [...] NP [address] [facility], [address], [place], [address], [facility] [email or web address] 10/09/2023 16:50:56 OBGyn Episode No OBEpisode recorded.
--- OUTSIDE RECORDS SUMMARY | 2025-03-29 01:49 | XMS_ITS | Encounter Summary ---
Author Organization [employer] Address [address] [facility] 7t [place] [address] Care Team Providers Care Research Interviewer Name Role Phone Pascual Daly MD Primary Care Provide r Dasia Waters PharmD Unavailable [phone] Reason for Visit * Reason Onset Date Comments Med Refill 08/31/2024 Encounter Details Date Type Department Care Team ([facility] st Contact Info) Description 08/31/2024 Telephone [facility] MEDICINE [address] [place] [address] Pascual Daly MD [address] [place] [address] Med Refill Social History Tobacco Use Types [...] immediate release tablet To be sent to: [facility] documented in this encounter Plan of Treatment Upcoming Encounters Date Type Department Care Team (Late st Contact Info) Description 04/29/2025 10:00 AM EST Clinical Support [facility] MEDICINE [address] [place] [address] Amanda Fernández RN [address] [place] [address] 08/24/2025 10:15 AM EDT Office Visit [facility] ADULT DENTAL [address] [place] [address] Gabriela Gaitan [address] [place] [address] documented as of this encounter Goals Goal Patient Goal Type Associated Problems Recent Progress Patient-Stated? Author Blood Pressure < 140/90 Blood Pressure 163/73(12/08/2 025 10:17 AM EST) No Heck, Jerril, KristiD documented as of this encounter Visit Diagnoses Not on filedocumented in this encounter Additional Health Concerns Assessment Noted Time PHQ-9 Depression Total Score: 9 01/29/20 24 11:00 AM EDT documented as of this encounter Care Teams Research Interviewer Relationship Specialty Start Date End Date Pascual Daly MD [address] [place] [address] PCP - General Internal Medicine 02/22/14 Dasia Waters PharmD [address] [place] [address] Pharmacist Internal Medicine 08/16/24 01/16/25 Iker CORDERO 12/18/24 documented as of this encounter
--- OUTSIDE RECORDS SUMMARY | 2025-03-29 01:49 | XMS_ITS | Encounter Summary ---
Author Organization [employer] Address [address] [facility]t [place] [address] Care Team Providers Care Sheet Metal Layout Worker Name Role Phone Pascual Daly MD Primary Care Provide r Fani Heck PharmD Unavailable [phone] Dasia Waters PharmD Unavailable [phone] Encounter Details Date Type Department Care Team (Late st Contact Info) Description 03/05/2024 Refill [facility] MEDICINE [address] [place] [address] Jefry Chun Benign hypertension; Type 2 diabetes mellitus without complication, with long-term current use of insulin ([facility]) Social History Tobacco Use Types Packs/Day Years [...] Description 04/29/2025 10:00 AM EST Clinical Support [facility] MEDICINE [address] [place] [address] Amanda Fernández RN [address] [place] [address] 08/24/2025 10:15 AM EDT Office Visit [facility] ADULT DENTAL [address] [place] [address] Gabriela Gaitan [address] [place] [address] documented as of this encounter Goals Goal [...] documented as of this encounter Care Teams Sheet Metal Layout Worker Relationship Specialty Start Date End Date Pascual Daly MD [address] [place] [address] PCP - General Internal Medicine 02/22/14 Fani Heck, KristiD [address] [place] [address] Pharmacist Internal Medicine 12/16/22 08/15/24 Dasia Waters PharmD [address] [place] [address] Pharmacist Internal Medicine 08/16/24 01/16/25 [place] [facility] 12/18/24 documented as of this encounter
--- OUTSIDE RECORDS SUMMARY | 2025-03-29 01:49 | XMS_ITS | Encounter Summary ---
Author Organization [employer] Address [address] [facility] 7t [place] [address] Care Team Providers Care Contact Agent Name Role Phone Pascual Daly MD Primary Care Provide r Fani Heck PharmD Unavailable [phone] Dasia Waters PharmD Unavailable [phone] Reason for Visit * Reason Onset Date Comments Appointment Request 09/03/2022 Encounter Details Date Type Department Care Team ([facility] st Contact Info) Description 09/03/2022 Telephone [facility] MEDICINE [address] [place], [place] [phone] Pascual Daly MD [address] [place] [address] Appointment Request Social History Tobacco Use Types [...] Description 04/29/2025 10:00 AM EST Clinical Support [facility] MED[facility]INE [address] [place] [address] Amanda Fernández, AALIYAH [address] [place], [place] [phone] 08/24/2025 10:15 AM EDT Office Visit [facility] ADULT DENTAL 230 [place] [address] Gabriela Gaitan [address] [place] [address] documented as of this encounter Goals Goal Patient Goal Type Associated Problems Recent Progress Patient-Stated? Author Blood Pressure < 140/90 Blood Pressure 163/73( 025 10:17 AM EST) No Fani Heck, Woody documented as of this encounter Visit Diagnoses Not on filedocumented in this encounter Additional Health Concerns Assessment Noted Time PHQ-9 Depression Total Score: 8 07/05/19 23 9:26 AM EDT documented as of this encounter Care Teams Contact Agent Relationship Specialty Start Date End Date Pascual Daly MD [address] [place] [address] PCP - General Internal Medicine 02/22/14 Fani Heck, Woody [address] [place] [address] Pharmacist Internal Medicine 12/16/22 08/15/24 Dasia Waters PharmD [address] [place] [address] Pharmacist Internal Medicine 08/16/24 01/16/25 Iker CORDERO 12/18/24 documented as of this encounter
--- OUTSIDE RECORDS SUMMARY | 2025-03-29 01:49 | XMS_ITS | Encounter Summary ---
Author Organization [employer] Address [address] [facility] 7t [place] [address] Care Team Providers Care Relief Map Modeler Name Role Phone Pascual Daly MD Primary Care Provide r Fani Heck PharmD Unavailable + Dasia Waters PharmD Unavailable [phone] Reason for Visit * Reason Comments Med Refill Encounter Details Date Type Department Care Team (Late st Contact Info) Description 01/01/2024 Refill [facility] [address] [place] [address] Momo Rizo MD [address] [place] [address] Social History Tobacco Use Types Packs/Day Years [...] EST Clinical Support [facility] [address] [place] [address] Amanda Fernández RN [address] [place] [address] 08/24/2025 10:15 AM EDT Office Visit [facility] ADULT DENTAL [address] [place] [address] Kandy, Gabriela 230 [place] [address] documented as of this encounter Goals Goal [...] documented as of this encounter Care Teams Relief Map Modeler Relationship Specialty Start Date End Date Pascual Daly MD [address] [place] [address] PCP - General Internal Medicine 02/22/14 Fani Heck, KristiD [address] [place] [address] Pharmacist Internal Medicine 12/16/22 08/15/24 Dasia Waters PharmD [address] [place] [address] Pharmacist Internal Medicine 08/16/24 01/16/25 [place] A 12/18/24 documented as of this encounter
--- OUTSIDE RECORDS SUMMARY | 2025-03-29 01:49 | XMS_ITS | Encounter Summary ---
Author Organization [employer] Address [address] [facility] 7t [place] [address] Care Team Providers Care Body Bumper Name Role Phone Pascual Daly MD Primary Care Provide r Fani Heck PharmD Unavailable [phone] Dasia Waters PharmD Unavailable [phone] Reason for Visit * Reason Onset Date Comments Med Refill 10/11/2022 Encounter Details Date Type Department Care Team ([facility] st Contact Info) Description 10/11/2022 Telephone [facility] MEDICINE [address] [place], [place] [phone] Pascual Daly MD [address] [place], [place] [phone] Med Refill Social History Tobacco Use Types [...] Description 04/29/2025 10:00 AM EST Clinical Support [facility] MED[facility]INE [address] [place] [address] Amanda Fernández, AALIYAH [address] [place] [address] 08/24/2025 10:15 AM EDT Office Visit [facility] ADULT DENTAL [address] [place] [address] Kandy, Gabriela [address] [place] [address] documented as of this encounter Goals Goal [...] as of this encounter Care Teams Body Bumper Relationship Specialty Start Date End Date Pascual Daly MD [address] [place] [address] PCP - General Internal Medicine 02/22/14 Fani Heck, PharmD [address] [place] [address] Pharmacist Internal Medicine 12/16/22 08/15/24 Dasia Waters, KristiD [address] [place] [address] Pharmacist Internal Medicine 08/16/24 01/16/25 [facility] 12/18/24 documented as of this encounter
--- OUTSIDE RECORDS SUMMARY | 2025-03-29 01:49 | XMS_ITS | Encounter Summary ---
Author Organization [employer] Address [address] [facility] 7t [place] [address] Care Team Providers Care Nursing Service Administrator Name Role Phone Pascual Daly MD Primary Care Provide r Fani Heck PharmD Unavailable [phone] Dasia Waters PharmD Unavailable [phone] Reason for Visit * Reason Comments Med Refill Encounter Details Date Type Department Care Team ([facility] st Contact Info) Description 07/16/[address] [facility] MED[facility]INE [address] [place] [address] Pascual Daly MD [address] [place] [address] Social History Tobacco Use Types Packs/Day Years [...] 04/29/2025 10:00 AM EST Clinical [facility] [address] [place] [address] Amanda Fernández, RN [address] [facility] [place] [address] 08/24/2025 10:15 AM EDT Office [address] [facility] ADULT DENTAL [address] [place] [address] Kandy Gabriela [address] [place] [address] documented as of this encounter Goals Goal [...] as of this encounter Care Teams Nursing Service Administrator Relationship Specialty Start Date End Date Pascual Daly MD [address] [place] [address] PCP - General Internal Medicine 02/22/14 Fani Heck, PharmD [address] [place] [address] Pharmacist Internal Medicine 12/16/22 08/15/24 Dasia Waters PharmD [address] [place] [address] Pharmacist Internal Medicine 08/16/24 01/16/25 [facility] 12/18/24 documented as of this encounter
--- OUTSIDE RECORDS SUMMARY | 2025-03-29 01:49 | XMS_ITS | Encounter Summary ---
Author Organization [employer] Address [address] [facility] 7t [place] [address] Care Team Providers Care Roof Mechanic Name Role Phone Pascual Daly MD Primary Care Provide r Dasia Waters PharmD Unavailable [phone] Reason for Visit * Reason Onset Date Comments Med Refill 09/30/2024 Encounter Details Date Type Department Care Team ([facility] st Contact Info) Description 09/30/2024 Telephone [facility] MEDICINE [address] [place] [address] Pascual Daly MD [address] [place] [address] Med Refill Social History Tobacco Use Types [...] immediate release tablet To be sent to: [facility] documented in this encounter Plan of Treatment Upcoming Encounters Date Type Department Care Team (Late st Contact Info) Description 04/29/2025 10:00 AM EST Clinical Support [facility] MEDICINE [address] [place] [address] Amanda Fernández RN [address] [place] [address] 08/24/2025 10:15 AM EDT Office Visit [facility] ADULT DENTAL [address] [place] [address] Gabriela Gaitan [address] [place] [address] documented as of this encounter Goals Goal [...] as of this encounter Care Teams Roof Mechanic Relationship Specialty Start Date End Date Pascual Daly MD [address] [place] [address] PCP - General Internal Medicine 02/22/14 Dasia Waters PharmD [address] [place] [address] Pharmacist Internal Medicine 08/16/24 01/16/25 [place] CORDERO 12/18/24 documented as of this encounter
--- OUTSIDE RECORDS SUMMARY | 2025-03-29 01:49 | XMS_ITS | Encounter Summary ---
Author Organization [employer] Address [address] [facility] 7t [place] [address] Care Team Providers Care Machine Puller And Laster Name Role Phone Pascual Daly MD Primary Care Provide r Fani Heck PharmD Unavailable [phone] Dasia Waetrs PharmD Unavailable [phone] Encounter Details Date Type Department Care Team (Late Contact Info) Description 08/29/2022 Abstract [facility] [address] [place] [address] Pascual Daly MD [address] [place] [address] Social History Tobacco Use Types Packs/Day Years [...] Clinical Support [facility] [address] [place] [address] Amanda Fernández RN [address] [place] [address] 08/24/2025 10:15 AM EDT Office Visit [facility] ADULT DENTAL [address] [place] [address] Primo Gaitanaris [address] [place] [address] documented as of this encounter Goals Goal [...] as of this encounter Care Teams Machine Puller And Laster Relationship Specialty Start Date End Date Pascual Daly MD [address] [place] [address] PCP - General Internal Medicine 02/22/14 Fani Heck, KristiD [address] [place] [address] Pharmacist Internal Medicine 12/16/22 08/15/24 Dasia Waters PharmD [address] [facility] [place] [address] Pharmacist Internal Medicine 08/16/24 01/16/25 Iker CORDERO 12/18/24 documented as of this encounter
--- OUTSIDE RECORDS SUMMARY | 2025-03-29 01:49 | XMS_ITS | Encounter Summary ---
Author Organization [employer] Address [address] [facility] 7t [place] [address] Care Team Providers Care Aerosol Supervisor Name Role Phone Pascual Daly MD Primary Care Provide r Fani Heck PharmD Unavailable [phone] Dasia Waters PharmD Unavailable [phone] Reason for Visit * Reason Comments Med Refill Encounter Details Date Type Department Care Team ([facility] st Contact Info) Description 09/26/2023 Refill [facility] MEDICINE [address] [place] [address] Pascual Daly MD [address] [place] [address] Social History Tobacco Use Types Packs/Day Years [...] Description 04/29/2025 10:00 AM EST Clinical Support [facility] MEDICINE [address] [place] [address] Amanda Fernández, AALIYAH [address] [place] [address] 08/24/2025 10:15 AM EDT Office Visit [facility] ADULT DENTAL [address] [place] [address] Kandy, Gabriela [address] [place] [address] documented as of this encounter Goals Goal [...] documented as of this encounter Care Teams Aerosol Supervisor Relationship Specialty Start Date End Date Pascual Daly MD [address] [place] [address] PCP - General Internal Medicine 02/22/14 Fani Heck, KristiD [address] [place] [address] Pharmacist Internal Medicine 12/16/22 08/15/24 Dasia Waters PharmD [address] [place] [address] Pharmacist Internal Medicine 08/16/24 01/16/25 [place] A 12/18/24 documented as of this encounter
--- OUTSIDE RECORDS SUMMARY | 2025-03-29 01:49 | XMS_ITS | Encounter Summary ---
Author Organization [employer] Address [address] [facility] 7t [place] [address] Care Team Providers Care Chief Clinical Dietitian Name Role Phone Pascual Daly MD Primary Care Provide r Fani Heck PharmD Unavailable +7 Dasia Waters PharmD Unavailable [phone] Reason for Visit * Reason Onset Date Comments Med Refill 01/13/2024 Encounter Details Date Type Department Care Team ([facility] st Contact Info) Description 01/13/2024 Telephone [facility] MEDICINE [address] [place], [place] [phone] Pascual Daly MD [address] [place] [address] Med Refill Social History Tobacco Use Types [...] immediate release tablet To be sent to: [facility] [place], [place] - [address] [place] [address] documented in this encounter Plan of Treatment Upcoming Encounters Date Type Department Care Team ([facility] st Contact Info) Description 04/29/2025 10:00 AM EST Clinical Support [facility] MEDICINE [address] [place] [address] Amanda Fernández RN [address] [place] [address] 08/24/2025 10:15 AM EDT Office Visit [facility] ADULT DENTAL [address] [place] [address] Gabriela Gaitan [address] [place] [address] documented as of this encounter Goals Goal [...] as of this encounter Care Teams Chief Clinical Dietitian Relationship Specialty Start Date End Date Pascual Daly MD [address] [place] [address] PCP - General Internal Medicine 02/22/14 Fani Heck, PharmD [address] [place] [address] Pharmacist Internal Medicine 12/16/22 08/15/24 Dasia Waters PharmD [address] [place] [address] Pharmacist Internal Medicine 08/16/24 01/16/25 [place] [facility] 12/18/24 documented as of this encounter
--- OUTSIDE RECORDS SUMMARY | 2025-03-29 01:49 | XMS_ITS | Encounter Summary ---
Author Organization [employer] Address 75 [facility] 7t [place] [address] Care Team Providers Care Automotive Lube Technician Name Role Phone Pascual Daly MD Primary Care Provide r Fani Heck PharmD Unavailable +8 Dasia Waters PharmD Unavailable [phone] Encounter Details Date Type Department Care Team (Late st Contact Info) Description 09/25/2023 Telephone [facility] MEDICINE [address] [place] [address] Pascual Daly MD [address] [place] [address] Social History Tobacco Use Types Packs/Day Years [...] EST Clinical Support [facility]INE [address] [place] [phone] Amanda Fernández RN 505 [place] [address] 08/24/2025 10:15 AM EDT Office Visit [facility] ADULT DENTAL [address] [place] [address] Kandy, Gabriela [address] [place] [address] documented as of this encounter Goals Goal [...] as of this encounter Care Teams Automotive Lube Technician Relationship Specialty Start Date End Date Pascual Daly MD [address] [place] [id number] PCP - General Internal Medicine 11/4/14 Fani Heck, KristiD [address] [place] [address] Pharmacist Internal Medicine 12/16/22 08/15/24 Dasai Waters PharmD [address] [place] [address] Pharmacist Internal Medicine 08/16/24 01/16/25 [place] A 12/18/24 documented as of this encounter
--- OUTSIDE RECORDS SUMMARY | 2025-03-29 01:49 | XMS_ITS | Encounter Summary ---
Author Organization [employer] Address 75 [facility] 7t [place] [address] Care Team Providers Care Geographic Analyst Name Role Phone Pascual Daly MD Primary Care Provide r Fani Heck PharmD Unavailable +3 Dasia Waters PharmD Unavailable [phone] Reason for Visit * Reason Onset Date Comments FYI 12/31/2023 Encounter Details Date Type Department Care Team ([facility] st Contact Info) Description 12/31/2023 Telephone [facility] MEDICINE [address] [place], [place] [phone] Pascual Daly MD [address] [place] [address] Social History Tobacco Use Types Packs/Day Years [...] any questions you can contact Franky at [phone]. documented in this encounter Plan of Treatment Upcoming Encounters Date Type Department Care Team (Late st Contact Info) Description 04/29/2025 10:00 AM EST Clinical Support [facility] MEDICINE [address] [place] [address] Amanda Fernández RN [address] [place] [address] 08/24/2025 10:15 AM EDT Office Visit [facility] ADULT DENTAL [address] [place] [address] Gabriela Gaitan [address] [place] [address] documented as of this encounter Goals Goal [...] documented as of this encounter Care Teams Geographic Analyst Relationship Specialty Start Date End Date Pascual Daly MD [address] [place] [address] PCP - General Internal Medicine 02/22/14 Fani Heck, PharmD [address] [place] [address] Pharmacist Internal Medicine 12/16/22 08/15/24 Dasia Waters PharmD [address] [place] [address] Pharmacist Internal Medicine 08/16/24 01/16/25 Iker CORDERO 12/18/24 documented as of this encounter
--- OUTSIDE RECORDS SUMMARY | 2025-03-29 01:49 | XMS_ITS | Encounter Summary ---
Author Organization [employer] Address 75 [facility] 7t [place] [address] Care Team Providers Care Occupational Therapist Home Based Name Role Phone Pascual Daly MD Primary Care Provide r Fani Heck PharmD Unavailable +2 Dasia Waters PharmD Unavailable [phone] Reason for Visit * Reason Comments Med Refill Encounter Details Date Type Department Care Team (Late st Contact Info) Description 03/04/[address] [facility] MED[facility]INE [address] [place] [address] Pascual Daly MD [address] [place] [address] Type 2 diabetes mellitus without complication, with long-term current use of insulin ([facility]) Social History [...] 04/29/2025 10:00 AM EST Clinical Support [facility] [address] [place] [address] Amanda Fernández RN [address] [place] [address] 08/24/2025 10:15 AM EDT Office Visit [facility] ADULT DENTAL [address] [place] [address] Gabriela Gaitan [address] [place] [address] documented as of this encounter Goals Goal [...] as of this encounter Care Teams Occupational Therapist Home Based Relationship Specialty Start Date End Date Pascual Daly MD [address] [place] [address] PCP - General Internal Medicine 02/22/14 Fani Heck, KristiD [address] [place] [address] Pharmacist Internal Medicine 12/16/22 08/15/24 Dasia Waters PharmD [address] [place] [address] Pharmacist Internal Medicine 08/16/24 01/16/25 [place] A 12/18/24 documented as of this encounter
--- OUTSIDE RECORDS SUMMARY | 2025-03-29 01:49 | XMS_ITS | Encounter Summary ---
Author Organization [employer] Address 75 [facility] 7t [place] [address] Care Team Providers Care Building Construction Engineer Name Role Phone Pascual Daly MD Primary Care Provide r Fani Heck PharmD Unavailable +2 Dasia Waters PharmD Unavailable [phone] Encounter Details Date Type Department Care Team (Late st Contact Info) Description 07/01/2022 Abstract [facility] [address] [place] [phone] Pascual Daly MD [address] [place] [phone] Social History Tobacco Use Types Packs/Day Years [...] Description 04/29/2025 10:00 AM EST Clinical Support [facility] [address] [place] [address] Amanda Fernández, RN 505 [place] [address] 08/24/2025 10:15 AM EDT Office Visit [facility] ADULT DENTAL [address] [place] [address] Kandy, Gabriela [address] [place] [address] documented as of this encounter Goals Goal [...] documented as of this encounter Care Teams Building Construction Engineer Relationship Specialty Start Date End Date Pascual Daly MD [address] [place] [address] PCP - General Internal Medicine 02/22/14 Fani Heck, PharmD [address] [place] [address] Pharmacist Internal Medicine 12/16/22 08/15/24 Dasia Waters, KristiD [address] [place] [address] Pharmacist Internal Medicine 08/16/24 01/16/25 [place] [facility] 12/18/24 documented as of this encounter
--- OUTSIDE RECORDS SUMMARY | 2025-03-29 01:49 | XMS_ITS | Encounter Summary ---
Author Organization [employer] Address 75 [facility] 7t [place] [address] Care Team Providers Care Farmworker Cranberry Name Role Phone Pascual Daly MD Primary Care Provide r Fani Heck PharmD Unavailable +0 Dasia Waters PharmD Unavailable [phone] Reason for Visit * Reason Comments Med Refill Encounter Details Date Type Department Care Team (Late st Contact Info) Description 08/26/2023 Refill [facility] [address] [place], [place] [phone] Momo Rizo MD [address] [place] [address] Benign hypertension Social History Tobacco Use Types [...] 10:00 AM EST Clinical Support [facility] [address] [place] [address] Amanda Fernández, AALIYAH [address] [place] [address] 08/24/2025 10:15 AM EDT Office Visit [facility] ADULT [facility] [address] [place] [address] Kandy, Gabriela [address] [place] [address] documented as of this encounter Goals Goal [...] as of this encounter Care Teams Farmworker Cranberry Relationship Specialty Start Date End Date Pascual Daly MD [address] [place] [address] PCP - General Internal Medicine 02/22/14 Fani Heck, PharmD [address] [place] [address] Pharmacist Internal Medicine 12/16/22 08/15/24 Dasia Waters, Woody [address] [place] [address] Pharmacist Internal Medicine 08/16/24 01/16/25 [place] A 12/18/24 documented as of this encounter
--- OUTSIDE RECORDS SUMMARY | 2025-03-29 01:49 | XMS_ITS | Encounter Summary ---
Author Organization [employer] Address 75 [facility] 7t [place] [address] Care Team Providers Care Purse Framer Name Role Phone Pascual Daly MD Primary Care Provide r Fani Heck PharmD Unavailable +7 Dasia Waters PharmD Unavailable [phone] Encounter Details Date Type Department Care Team (Late st Contact Info) Description 09/25/2023 Telephone [facility] [address] [place] [address] Pascual Daly MD [address] [place] [address] Social History Tobacco Use Types Packs/Day Years [...] Description 04/29/2025 10:00 AM EST Clinical Support [facility] [address] [place] [address] Amanda Fernández, AALIYAH [address] [place] [address] 08/24/2025 10:15 AM EDT Office Visit [facility] ADULT DENTAL [address] [place] [address] Kandy, Gabriela [address] [place] [address] documented as of this encounter Goals Goal [...] documented as of this encounter Care Teams Purse Framer Relationship Specialty Start Date End Date Pascual Daly MD [address] [place] [address] PCP - General Internal Medicine 02/22/14 Fani Heck, PharmD [address] [place] [address] Pharmacist Internal Medicine 12/16/22 08/15/24 Dasia Waters, KristiD 230 [place] [address] Pharmacist Internal Medicine 08/16/24 01/16/25 Iker MARCUSA 12/18/24 documented as of this encounter
--- OUTSIDE RECORDS SUMMARY | 2025-03-29 01:49 | XMS_ITS | Encounter Summary ---
Author Organization [employer] Address 75 [facility] 7t [place] [address] Care Team Providers Care Medical Superintendent Name Role Phone Pascual Daly MD Primary Care Provide r Fani Heck PharmD Unavailable +8 Dasia Waters PharmD Unavailable [phone] Reason for Visit * Reason Comments Med Refill Encounter Details Date Type Department Care Team (Late Contact Info) Description 08/08/2022 Refill [facility] [address] [place] [phone] Momo Rizo MD [address] [place] [phone] Mild intermittent asthma without complication Social History [...] Description 04/29/2025 10:00 AM EST Clinical Support [facility] [address] [place] [address] Amanda Fernández RN 505 [place] [address] 08/24/2025 10:15 AM EDT Office Visit [facility] ADULT DENT[facility] [address] [place] [address] Gabriela Gaitan [address] [place] [address] documented as of this encounter Goals Goal [...] as of this encounter Care Teams Medical Superintendent Relationship Specialty Start Date End Date Pascual Daly MD [address] [place] [address] PCP - General Internal Medicine 02/22/14 Fani Heck, PharmD [address] [place] [address] Pharmacist Internal Medicine 12/16/22 08/15/24 Dasia Waters, KristiD [address] [place] [address] Pharmacist Internal Medicine 08/16/24 01/16/25 [place] [facility] 12/18/24 documented as of this encounter
--- OUTSIDE RECORDS SUMMARY | 2025-03-29 01:49 | XMS_ITS | Encounter Summary ---
Author Organization [employer] Address 75 [facility] 7t [place] [address] Care Team Providers Care Transitions Manager Rn Name Role Phone Pascual Daly MD Primary Care Provide r Fani Heck PharmD Unavailable +1 Dasia Waters PharmD Unavailable [phone] Reason for Visit * Reason Comments Med Refill Encounter Details Date Type Department Care Team ([facility] st Contact Info) Description 01/14/2024 Refill [facility] [address] [place] [address] Pascual Daly MD [address] [place], [place] [phone] Fibromyalgia Social History Tobacco Use Types Packs/Day [...] 10:00 AM EST Clinical Support [facility] MEDICINE [address] [place] [address] Amanda Fernández RN [address] [place] [address] 08/24/2025 10:15 AM EDT Office Visit [facility] ADULT DENTAL [address] [place] [address] Kandy, Gabriela [address] [place] [address] documented as of this encounter Goals Goal [...] documented as of this encounter Care Teams Transitions Manager Rn Relationship Specialty Start Date End Date Pascual Daly MD 230 [place] [address] PCP - General Internal Medicine 02/22/14 Fani Heck, KristiD [address] [place] [address] Pharmacist Internal Medicine 12/16/22 08/15/24 Dasia Waters PharmD [address] [place] [address] Pharmacist Internal Medicine 08/16/24 01/16/25 [place] A 12/18/24 documented as of this encounter
--- OUTSIDE RECORDS SUMMARY | 2025-03-29 01:50 | XMS_ITS | Clinical Summary ---
Author Organization [employer] Address [address] [facility] [address] [place] [address] Care Team Providers Care Housekeeping Worker Name Role Phone Pascual Daly MD [...] Active Continuous Glucose Sensor (Dexcom G7 Sensor) [facility] DIRECTED Active Actemra ACTPen 162 MG/0.9ML solution auto-injector Inject as directed (likely every other week; verify dose with patient or pharmacy) Active Alcohol Swabs (Alcohol Pads) 70 % padsIndications :Type 2 diabetes mellitus without complication, with long-term current use of insulin (HCC) Use up to 4 times a day for insulin injections 100 each 11 5 8:40 AM EST Active Blood Pressure Monitoring (Adult Blood Pressure [...] MOUTH EVERY MORNING 90 tablet 1 5 3:10 PM EST Active gabapentin (Neurontin) 100 MG capsuleIndicati ons:Pain [...] 30 minutes following use. 473 mL Active amLODIPine (Norvasc) 10 MG tabletIndicatio ns:Benign hypertension TAKE 1 TABLET BY MOUTH EVERY EVENING 90 tablet 1 Active atorvastatin (Lipitor) 20 MG tabletIndicatio ns:Type 2 diabetes mellitus without complication, with long-term current use of insulin (HCC) TAKE 1 TABLET BY MOUTH EVERY MORNING 90 tablet 1 3:10 PM EST Active Ventolin HFA 108 (90 Base) MCG/ACT inhalerIndicati ons:Mild intermittent asthma without complication INHALE 2 PUFFS BY MOUTH EVERY 4 TO 6 HOURS NEEDED 18 g 1 Active oxyCODONE (Roxicodone) 5 MG immediate release tabletIndicatio ns:Long-term current use of opiate analgesic Take 1 tablet (5 mg) by mouth every 12 (twelve) hours if needed for severe pain for up to 28 days. 56 tablet 3:10 PM EST 2024 Active oxyCODONE (Roxicodone) 5 MG immediate release tabletIndicatio ns:Long-term current use of opiate analgesic Take 1 tablet (5 mg) by mouth every 12 (twelve) hours if needed for severe pain for up to 28 days. 56 tablet 025 2024 Discontinued(R eorder (will not trigger notification to Pharmacy)) oxyCODONE (Roxicodone) 5 MG immediate release tabletIndicatio [...] ulcer 09/16/2024 Coronary artery disease invo lving circle coronary artery of circle heart without angina pectoris 08/12/2024 Assessment & [...] 10:18 AM EDT): Mammogram 06/05/2023 [place] 712[address] normal, given age no need to continue Colonoscopy done 03/20/2018 Normal Assessment & Plan (08/27/2022 10:17 AM EDT): Mammogram 2019 Normal Pap 712/13 normal, given age no [...] (08/27/2022 10:19 AM EDT): followed by a monitoring and evaluation advisor. 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 She says it falls out when she brushes her hair Pt evaluated by Dr Guevara Rheumatoid arthritis involvi ng multiple sites with positive rheumatoid factor ([facility]/HCC) 08/27/2022 Assessment & Plan (01/04/2025 9:23 AM [...] Major depressive disorder with psychotic feature s ([facility]/HCC) 03/26/2022 Assessment & Plan (01/04/2025 9:33 AM EDT): Titi Gray retired She has a new Psychiatrist and a psychotherapist in [place] She tells me she is taking Effexor, [...] cardiology in August. - Follow-up in [facility] in November. Repeat BMP and A1c [...] from 7.8 Eye exam done on: 12/2023 [facility] Dx with new [...] from 8.9 Eye exam done on: 12/2023 [facility] Dx with new [...] f/u She is under the care of Industrial Maintenance Mechanic Dr Sprague, last seen 12/31/2023 On a [...] f/u She is under the care of Industrial Maintenance Mechanic Dr Sprague, last seen 10/16/2023 On a [...] f/u She is under the care of Industrial Maintenance Mechanic Dr Sprague, has a follow up with [...] f/u She is under the care of Industrial Maintenance Mechanic Dr Sprague, has a follow up at [...] LDL-C. Melquiades WALLACE et al. TEN. 2013;310(19): 3313-7173 (http://education.KIDOZ.HackerOne/faq/PGN736) Chol/HDLC Ratio <5.0 (calc) 4.2 3.7 2.5 [...] (01/04/2025 9:38 AM EDT): Patient admitted to [facility] from (11/08/24 - 11/10/24) S/P fall and head injury at the visit with hematology. Eventually admitted for head injury and wrist injury. Patient's 4th finger was dislocated, lip, nose, and forehead were lacerated. Physical Therapy recommended rehabilitation. Eventually discharged to [facility] for not meeting medical necessity for hospitalization. Instructed to follow up with orthopedics team. She was at [facility] from 11/10/24 - 12/17/24 Discharged home with medications and mcc services. Instructed to follow up with PCP with us in 7 to 10 days. Today she feels fine, no complaints, has a follow up with orthopedics tomorrow Assessment & Plan (10/21/2023 10:15 AM EDT): Patient admitted to [facility] 09/09/23 after she presented to [place] emergency room due to left-sided chest discomfort as per patient she was visiting family in [place], on August 26 she turned in high [...] Encounters Date Type Department Care Team Description 03/28/2025 10:00 AM EST Office Visit [facility] [address] [place] [phone] Momo Rizo MD Left-sided epistaxis (Primary Dx); Hypertension, unspecified type 03/28/2025 Orders Only GENERIC EXTERNAL DATA DEPARTMENT Provider, Generic External Data 03/28/2025 Telephone [facility] [address] [place] [address] Pascual Daly MD ED expect 03/28/2025 Travel 03/14/2025 Refill [facility] [address] [place] [address] Amanda Fernández, AALIYAH Long-term current use of opiate analgesic 03/14/2025 Telephone [facility] [address] [place] [address] Pascual Daly MD Med Refill 02/21/2025 Refill [facility] [address] [place] [address] Pascual Daly MD Mild intermittent asthma without complication 02/17/2025 10:15 AM EDT Office Visit [facility] [address] [place] [phone] Gabriela Gaitan Xerostomia (Primary Dx); Dental plaque; Missing teeth, acquired 02/11/2025 Telephone [facility] [address] [place] [address] Ana Cali RN ER Follow-up 02/10/2025 Refill [facility] [address] [place] [address] Pascual Daly MD Long-term current use of opiate analgesic 02/10/2025 Refill [facility] [address] [place] [address] Pascual Daly MD Benign hypertension; Type 2 diabetes mellitus without complication, with long-term current use of insulin ([facility]) 02/09/2025 11:00 AM EDT Office Visit [facility] [address] [place] [address] Raven Polanco MD Suprapubic pain (Primary Dx); Bladder pain; Dietary counseling; Exercise counseling; Class 1 obesity with serious comorbidity and body mass index (BMI) of 30.0 to 30.9 in adult, unspecified obesity type; Paralytic ileus (CMS/HCC) (HCC) 02/09/2025 Orders Only GENERIC EXTERNAL DATA DEPARTMENT Provider, Generic External Data 02/09/2025 Results Follow-Up [facility] [address] [place] [address] Raven Polanco MD XR KUB and Upright 2 Views 02/09/2025 Travel 02/08/[address] [facility] [address] [place] [address] Amanda Fernández RN Long-term current use of opiate analgesic 02/08/2025 Telephone [facility] [address] [place] [address] Pascual Daly MD Med Refill 01/26/2025 9:00 AM EDT Office Visit [facility] [address] [place] [address] Christian Winchester DDS Dental caries (Primary Dx); Aphthous ulcer 01/20/2025 10:30 AM EDT Clinical Support [facility] [address] [place] [address] Amanda Fernández RN Long-term current use of opiate analgesic (Primary Dx) 01/20/2025 Travel 01/17/2025 Abstract [facility] [address] [place] [address] Dasia Waters, PharmD 01/17/2025 Travel 01/14/2025 10:30 AM EDT Office Visit [facility] [address] [place] [address] Ammy Owen, DDS Aphthous ulcer (Primary Dx) 01/14/2025 Refill [facility] [address] [place] [address] Pascual Daly MD Pain 01/11/2025 Refill [facility] [address] [place] [address] Pascual Daly MD Long-term current use of opiate analgesic (Primary Dx) 01/07/2025 Orders Only GENERIC EXTERNAL DATA DEPARTMENT Provider, Generic External Data 01/04/2025 9:30 AM EDT Office Visit [facility] [address] [place] [address] Pascula Daly MD Hospital discharge follow-up (Primary Dx); Type 2 diabetes mellitus with right eye affected by mild nonproliferative retinopathy without macular edema, with long-term current use of insulin (CMS/HCC); Rheumatoid arthritis involving multiple sites with positive rheumatoid factor (CMS/HCC); Major depressive disorder with psychotic features (CMS/HCC); Mixed stress and urge urinary incontinence; Sore throat 01/04/2025 Travel 01/03/2025 Telephone [facility] [address] [place], [place] [phone] Pascual Daly MD chart prep 12/31/2024 Telephone [facility] [address] [place], [place] [phone] Katie Harper, KristiD from Last 3 Months Immunizations Immunization Administration [...] (158 lb) 03/28/2025 10:17 AM EST Height 149.9 cm (4' 11 ) 02/09/2025 11:05 AM EDT Body Mass Index 31.91 02/09/2025 11:05 AM EDT Plan of Treatment Upcoming Encounters Date Type Department Care Team (Late st Contact Info) Description 04/29/2025 10:00 AM EST Clinical Support [facility] [address] [place] [address] Amanda Fernández, AALIYAH [address] [place] [address] 08/24/2025 10:15 AM EDT Office Visit [facility] [address] [place] [address] Kandy Gabriela [address] [place] [address] Health Maintenance Due Date Last Done Comments [...] Dental Prophylaxis 08/19/2025 02/17/2025, 08/05/2024 Tobacco Screening 03/28/2026 03/28/2025 Dental X-Ray: Full Mouth 08/07/2027 08/05/2024 Colonoscopy [...] Pressure 163/73( 025 10:17 AM EST) No Umang, Fani, PharmD Procedures Procedure Name Priority Date/Time Associated Diagnosis Comments COMPREHENSIVE METABOLIC PANEL Routine 03/28/2025 11:48 AM EST APTT Routine 03/28/2025 11:48 AM EST PROTHROMBIN TIME-INR Routine 03/28/2025 11:48 AM EST CBC WITH AUTO DIFFERENTIAL Routine 03/28/2025 11:48 AM EST CASE PRESENTATION, DETAILED AND EXTENSIVE [...] edema, with long-term current use of insulin ([facility]) HEPATITIS PANEL, GENERAL Routine 10/28/2024 10:04 AM [...] Maintenance Results * (ABNORMAL) CBC auto differential (03/28/2025 11:48 AM EST) White Blood Count 8.5 4.8 - 10.8 X10*3/uL [facility] Red Blood Count 4.10(L) 4.20 - 5.50 X10*6/uL [facility] Hemoglobin 11.2(L) 12.0 - 16.0 g/dl [facility] Hematocrit 35.4(L) 37.0 - 47.0 % [facility] Mean Corpuscular Volume 86.3 80.0 - 98.0 fL [facility] Mean Corpuscular Hemoglobin 27.3 27.0 - 33.0 pg [facility] Mean Corpuscular HGB Conc 31.6 31.0 - 35.0 g/dl [facility] Red Cell Distribution Width 14.7 11.0 - 16.0 % [facility] Platelet Count 195 160 - 400 X10*3/uL [facility] Mean Platelet Volume 11.1 9.4 - 12.3 fL [facility] Neutrophils Percent Auto 54.4 45 - 73 % [facility] Imm Gran Pct Auto 0.2 0.0 - 0.4 % [facility] Lymphocytes Percent Auto 26.5 20 - 40 % [facility] Monocytes Percent Auto 7.3 2 - 11 % [facility] Eosinophils Percent Auto 10.7(H) 0 - 4 % [facility] Basophils Percent Auto 0.9 0 - 2 % [facility] NRBC Pct Auto 0.0 0.0 - 0.2 /100WBC [facility] Neutrophils Absolute Auto 4.7 2.0 - 8.3 x10*3/uL [facility] Imm Gran Abs Auto 0.02 0.00 - 0.03 X10*3/uL [facility] Lymphocytes Absolute Auto 2.3 1.2 - 4.9 X10*3/uL [facility] Monocytes Absolute Auto 0.6 0.1 - 1.2 X10*3/uL [facility] Eosinophils Absolute Auto 0.9(H) 0.0 - 0.4 X10*3/uL [facility] Basophils Absolute Auto 0.1 0.0 - 0.2 X10*3/uL [facility] NRBC Abs Auto 0.000 0.0 - 0.012 X10*3/uL [facility] 03/28/2025 11:4 8 AM EST 03/28/2025 11:51 AM EST Generic External Data Provider LAB BLOOD ORDERAB LES Final Result Performing Organization Address [facility]/ZIP Co de Phone Number [facility] [address] [place] [phone] * Partial Thromboplastin Time, Activated (APTT) (03/28/2025 11:48 AM EST) Partial Thromboplastin Time 28.5 26.7 - 34.1 SEC [facility] 03/28/2025 11:4 8 AM EST 03/28/2025 11:51 AM EST Generic External Data Provider LAB BLOOD ORDERAB LES Final Result Performing Organization Address [facility] Co de Phone Number [facility] [address] [place] [phone] * (ABNORMAL) Prothrombin Time-INR (03/28/2025 11:48 AM EST) Prothrombin Time 10.8(L) 11.2 - 13.5 SEC [facility] INTERNATIONAL NORM RATIO 0.9 0.9 - 1.1 [facility] Comment:INTERNATIONAL NORMAL IZED RATIO (INR) REFERENCE RANGES Reference RangeFor patients not on anticoagulant therapy: 0.9 - 1.1INR ranges for oral anticoagulanttherapy:For prevention and treatment of venous thrombosis and pulmonary embolism: 2.0 - 3.0For acute myocardial infarction with aspirin therapy: 2.0 - 3.0For acute myocardial infarction without aspirin therapy: 3.0 - 4.0For patients with mechanical prosthetic heart valves: 2.5 - 3.5 03/28/2025 11:4 8 AM EST 03/28/2025 11:51 AM EST us Generic External Data Provider LAB BLOOD ORDERAB LES Final Result [facility] [address] [place] [phone] [phone] * (ABNORMAL) Comprehensive Metabolic Panel (03/28/2025 11:48 AM EST) Sodium 140 135 - 145 mmol/L [facility] Potassium 4.4 3.3 - 5.1 mmol/L [facility] Chloride 104 96 - 108 mmol/L [facility] Carbon Dioxide 26 22 - 29 mmol/L [facility] Anion Gap 14 12 - 20 [facility] Urea Nitrogen (BUN) 22(H) 9 - 16 mg/dL [facility] Creatinine, Serum 1.07 0.5 - 1.4 mg/dL [facility] Creatinine Clr Calc Pharmacy 39.0 [facility] Comment:Provided height and weight: 149.86 cm,71.4 kg.eGFR (calculated from the MDRD study equation) and eCrCl(calculated from the Cockcroft-Gault equation) are based ondifferent parameters and may not yield comparable results.If eCrCl result is absurd, please check patient'sheight/weight. Estimated Glomerular Filt Rate 50 [facility] Comment:Chronic Kidney Disea se: Estimated GFR < 60 mL/min/1.99l8Ujpsyx Kidney Disease: Estimated GFR < 15 mL/min/1.73m2 Glucose 232(H) 60 - 115 mg/dL [facility] Calcium 9.5 8.4 - 10.2 mg/dL [facility] Bilirubin, Total 0.4 0.0 - 1.0 mg/dL [facility] Aspartate Amino Transferase 31 5 - 31 U/L [facility] Alanine Aminotransferase 39(H) 0 - 31 U/L [facility] Total Protein 6.2(L) 6.5 - 8.0 g/dL [facility] Albumin Level 4.1 3.5 - 5.0 g/dL [facility] Alkaline Phosphatase 94 39 - 117 U/L [facility] 03/28/2025 11:4 8 AM EST 03/28/2025 11:51 AM EST us Generic External Data Provider LAB BLOOD ORDERAB LES Final Result Performing Organization Address City/State/[facility] Co de Phone Number [facility] [address] [place] [phone] * CT Abdomen Pelvis w/ Contrast (02/09/2025 6:41 PM EDT) Anatomical Region Laterality Modality Body, Pelvis, Abdomen Computed T omography 02/09/2025 6:41 PM EDT Narrative 02/09/2025 6:43 PM EDT [address] [address] [address] Scan Report Signed Patient: Brandie Santana MR#: [id number] : 1950 Acct:[id number] Age/Sex: 75 / F ADM Date: 02/09/25 Loc: .ED Attending Dr: Ordering Physician: Vivian Reese DO Date of Service: 02/09/25 Procedure(s): CT abdomen pelvis w IV con Accession Number(s): [id number] cc: Vivian Reese DO; Pascual Darnell MD Report Number: [id number]: Total DLP = 0.00 mGy-cm Reason for [...] in OV> 02/09/251841 DD/ 40 TD/TT: 02/09/251840 Card Dealer: Procedure Note Donotuseinterpreter, Image - 02/09/[address] [place] [address] [address] Scan Report Signed Patient: Dino Santana#: [id number] : 1950Acct:[id number] Age/Sex: 75 / FADM Date: 02/09/25 Loc: .ED Attending Dr: Ordering Physician: Vivian Reese DO Date of Service: 02/09/25 Procedure(s): CT abdomen pelvis w IV con Accession Number(s): [id number] cc: Vivian Reese DO; Pascual Darnell MD Report Number: [id number]: Total DLP = 0.00 mGy-cm Reason for [...] in OV> 02/09/251841 DD/ 40 TD/TT: 02/09/251840 Card Dealer: [facility] External Provider IMG CT PROCEDURES Final Result * Culture, Urine, Routine (02/09/2025 6:40 PM EDT) Urine Urine specimen obtained by clean catch procedure / Unknown 02/09/2025 6:40 PM EDT 02/09/2025 6:40 PM EDT Comment:UACC Narrative [facility] - 02/11/2025 9:45 AM EDT Urine Culture Report Result Urine Culture 50,000 to 100,000 cfu/ml Urine Culture Mixed bacterial oriana characteristic of Urine Culture urogenital contamination. Specimen Source: Urine clean catch Generic External Data Provider LAB MICROBIOLOGY - GENERAL ORDERABLES Final Result [facility] [address] [place] [phone] * (ABNORMAL) Urinalysis, Complete, with Reflex to Culture (02/09/2025 6:11 PM EDT) Color Urine Yellow [facility] Appearance Urine Clear [facility] PH 6.0 5.0 - 9.0 [facility] Glucose Urine UA Negative Negative mg/dL [facility] Urine Blood Negative Negative [facility] Specific [place] - Urine 1.010 1.005 - 1.025 [facility] Urine Protein Negative Neg-Trace mg/dL [facility] Urine Ketones Negative Negative mg/dL [facility] Nitrite Urine Negative Negative [facility] Leukocyte Esterase Urine Trace(A) Negative [facility] RBC Urine 0-2 0 - 2 /HPF [facility] Urine WBC 6-10(A) 0 - 5 /HPF [facility] Urine Squamous Epithelial Cell 3-5 0 - 2 /HPF [facility] Urine Bacteria None Seen None Seen [facility] Hyaline Casts, Urine 0-2 0 - 2 /LPF [facility] Urine Yeast Present [facility] 02/09/2025 6:11 PM EDT 02/09/2025 6:16 PM EDT Narrative [facility] - 02/09/2025 6:39 PM EDT [id number], Clean Catch us Generic External Data Provider LAB URINE ORDERAB LES Final Result Performing Organization Address City/State/[facility] Co de Phone Number [facility] [address] [place] [phone] [phone] * XR KUB and Upright 2 Views (02/09/2025 12:44 PM EDT) Anatomical Region Laterality Modality Radiographic Zoe ging 02/09/2025 12:4 4 PM EDT Narrative 02/09/2025 1:26 PM EDT [address] [address] XRay Report Signed Patient: Brandie Santana MR#: [id number] : 1950 Acct:[id number] Age/Sex: 75 / F ADM Date: 02/09/25 Loc: HO.HHCX Attending Dr: Raven Polanco MD Ordering Physician: Raven Polanco Date of Service: 02/09/25 Procedure(s): XR KUB Accession Number(s): [id number] cc: Raven Polanco Reason for Exam: abdominal [...] 02/09/25 1323 DD/ 1244 TD/TT: 02/09/25 1310 Card Dealer: Procedure Note Donotuseinterpreter, Image - 02/09/[address] [address] XRay Report Signed Patient: Dino Santana#: [id number] : 1950Acct:[id number] Age/Sex: 75 / FADM Date: 02/09/25 Loc: .HHCX Attending Dr: Raven Polanco MD Ordering Physician: Raven Polanco Date of Service: 02/09/25 Procedure(s): XR KUB Accession Number(s): [id number] cc: Raven oPlanco Reason for Exam: abdominal pain, concentrated suprapubically [...] 02/09/25 1323 DD/ 1244 TD/TT: 02/09/25 1310 Card Dealer: us Raven Polanco MD IMG XR PROCEDURES Final [...] AM EDT . Internal Pass Control Lot# [id number] Exp: 02-18-26 Pascual Terry MD POINT OF CARE TEST EN TER/EDIT ORDERABLES Final Result * Glucose, Whole Blood (01/07/2025 10:30 AM EDT) Glucose, Whole Blood 101 60 - 115 mg/dL [facility] Comment:METER #: [id number] [facility] [address] , [address], [facility]. 01/07/2025 10:3 0 AM EDT 01/07/2025 10:36 AM EDT Generic External Data Provider LAB BLOOD ORDERAB LES Final Result [facility] [address] [place] [phone] * (ABNORMAL) Hemoglobin A1c (01/07/2025) Pathologist [facility] Hemoglobin A1C 8.3(A) 4.0 - 5.7 % Blood Venous blood specimen / Unknown Result [facility] Historical Provider LAB BLOOD ORDERABLES Carla l Result * Basic Metabolic Panel (01/07/2025) Pathologist [facility] Glucose 101 mg/dL Blood Venous blood specimen / Unknown Result [facility] Historical Provider LAB BLOOD ORDERABLES Carla l Result * POCT Rapid Influenza A OSOM (01/04/2025 10:08 AM EDT) [facility] Rapid Influenza A Ag Negative Negative, Indeterminate QC Media Lot # [id number] Lot# Expiration Date Swab Nasopharyngeal structure / Unknown 01/04/2025 10:08 AM EDT Pascual Terry MD POINT OF CARE TEST EN TER/EDIT ORDERABLES Final Result * POCT Rapid Influenza B BALL ID NOW (01/04/2025 9:54 AM EDT) Influenza B Negative Negative, Indeterminate [facility] QC Media Lot # [id number] [facility] Lot# Expiration Date [facility] Swab 01/04/2025 9:54 AM EDT us Pascual Terry MD POINT OF CARE TEST EN TER/EDIT ORDERABLES Final Result [facility] [address] [place] [phone] * POCT Rapid Covid-19 BALL ID NOW (01/04/2025 9:54 AM EDT) [facility] Coronavirus Antigen PCR Negative Negative, Indeterminate, None Detected, Invalid, Specimen unsatisfactory for evaluation, Weakly Positive, 2+ QC Media Lot # [id number] Lot# Expiration Date Swab 01/04/2025 9:54 AM EDT Pascual Terry MD POINT OF CARE TEST EN TER/EDIT ORDERABLES Final Result * POCT Rapid Strep A BALL ID NOW (01/04/2025 9:51 AM EDT) [facility] Rapid Strep A Screen Negative Negative, None Detected QC Media Lot # [id number] Lot# Expiration Date Swab 01/04/2025 9:51 AM EDT Pascual Terry MD POINT OF CARE TEST EN TER/EDIT ORDERABLES Final Result * POCT Rapid Covid-19 BinaxNOW (01/04/2025 9:51 AM EDT) [facility] Rapid COVID Ag Negative QC Media Lot # [id number] Lot# Expiration Date Swab 01/04/2025 9:51 AM EDT Pascual Terry MD POINT OF CARE TEST EN TER/EDIT ORDERABLES Final Result * POCT Glucose (01/04/2025 9:29 AM EDT) [facility] Glucose Blood, POC 182 60 - 200 mg/dL QC Media Lot # [id number] Lot# Expiration Date [id number] Blood Capillary blood specimen / Unknown 01/04/2025 9:29 AM EDT Pascual Terry MD POINT OF CARE TEST EN TER/EDIT ORDERABLES Final Result * Hepatitis Panel, General (10/28/2024 10:04 AM EDT) Pathologist [facility] Hepatitis A IgM Nonreactive Nonreactive [facility] Comment:IgM antibodies to GARCIA V not detected; does not exclude earlyacute or recovered HAV infection. ~Hepatitis B Surface Antibody NONREACTIVE Nonreactive [facility] Comment:Nonreactive: < 8.00 mIU/mL Hepatitis B Core Antibody Nonreactive Nonreactive [facility] Hepatitis C Antibody Nonreactive Nonreactive [facility] Comment:Antibodies to HCV no t detected; does not exclude early acuteHCV infection. Hepatitis B Surface Ag Negative Negative [facility] 10/28/2024 10:0 4 AM EDT 10/28/2024 3:46 PM EDT us Generic External Data Provider LAB BLOOD ORDERAB LES Final Result Performing Organization Address City/State/[facility] Co de Phone Number [facility] [address] [place] [phone] * Lipid Panel, Standard (08/16/2024 9:24 AM EDT) Triglycerides 100 <150 mg/dL [facility] Comment:Desirable Triglyceri de: less than 150 mg/dLBorderline High Triglyceride 150-199 mg/dLHigh Triglyceride: 200-499 mg/dLVery High Triglyceride: greater than or equal to 5OO mg/dL Cholesterol 145 <200 mg/dL [facility] Comment:Desirable Cholestero l: less than 200 mg/dLBorderline High Cholesterol: 200-239 mg/dLHigh Cholesterol: greater than 239 mg/dL LDL Cholesterol Calculated 60 <100 mg/dL [facility] Comment:Desirable LDL: less than 100 mg/dLNear Optimal/Above Optimal LDL: 110- 129 mg/dLBorderline High LDL: 130-159 mg/dLHigh LDL: 160-189 mg/dLVery High LDL: greater than or equal to 190 mg/dL HDL Cholesterol 65 >40 mg/dL [facility] Comment:Desirable HDL: great er than 40 mg/dL Note: This HDL assay may give artificially low results in patients with liver disease. Blood Venous blood specimen / Unknown 08/16/2024 9:24 AM EDT 08/16/2024 10:57 AM EDT us Pascual Terry MD LAB BLOOD ORDERABLES Final Result [facility] [address] [place] [address] [phone] * (ABNORMAL) Albumin, Random Urine W/Creatinine (07/02/2023 10:06 AM EDT) Creatinine, Urine 163.81 mg/dL [facility] Microalbumin Urine 59.0 mg/L [facility] Microalbum Creatinine Ratio Ur 36.0(H) <30 ug/mg cr [facility] Comment:Albumin/Creatinine R atio Reference Ranges: Normal: < 30 ug/mg creatinine Microalbuminuria: 30 - 300 ug/mg creatinineClinical Albuminuria: > 300 ug/mg creatinine 07/02/2023 10:0 6 AM EDT 07/02/2023 11:41 AM EDT us Generic External Data Provider LAB URINE ORDERAB LES Final Result Performing Organization Address City/[facility]/ZIP Co de Phone Number [facility] [address] [place] [address] [phone] * Hm Colonoscopy (03/20/2018) Colonoscopy Normal Normal 03/20/2018 Narrative Sondra Rowe - 03/20/2018 9:09 AM EST Recommended 10 year follow up us Historical Provider HEALTH MAINTENANCE Edited Result - Final from Last 3 Months or Most Recently [place] [address] [facility] [place]AIL [place] ([place]) [place] [address] [facility] [place] [address] , [place] [address] Care Teams Housekeeping Worker Relationship Specialty Start Date End Date Pascual Daly MD [address] [place] [phone] PCP - General Internal Medicine 02/22/14 Iker A 12/18/24
--- OUTSIDE RECORDS SUMMARY | 2025-03-29 01:50 | XMS_ITS | Encounter Summary ---
Author Organization [employer] Address [address] [facility] 7t [place] [address] Care Team Providers Care Lvn Name Role Phone Pascual Daly MD Primary Care Provide r Reason for Visit * Reason Onset Date Comments Med Refill 02/08/2025 Encounter Details Date Type Department Care Team ([facility] st Contact Info) Description 02/08/2025 Telephone [facility] [address] [place] [address] Pascual Daly MD [address] [place] [address] Med Refill Social History Tobacco Use Types [...] immediate release tablet To be sent to: [facility] - [place], [place] - [address] [place] [address] documented in this encounter Plan of Treatment Upcoming Encounters Date Type Department Care Team ([facility] st Contact Info) Description 04/29/2025 10:00 AM EST Clinical Support [facility] [address] [place] [address] Amanda Fernández RN 505 [place] [address] 08/24/2025 10:15 AM EDT Office Visit [facility] ADULT DENT[facility] [address] [place] [address] Gabriela Gaitan 230 [place] [address] documented as of this encounter Goals Goal Patient Goal Type Associated Problems Recent Progress Patient-Stated? Author Blood Pressure < 140/90 Blood Pressure 163/73( 025 10:17 AM EST) No Umang, Jerril, Woody documented as of this encounter Visit Diagnoses Not on filedocumented in this encounter Additional Health Concerns Assessment Noted Time PHQ-9 Depression Total Score: 12 025 9:30 AM EDT documented as of this encounter Care Teams Lvn Relationship Specialty Start Date End Date Pascual Daly MD [address] [place] [address] PCP - General Internal Medicine 02/22/14 Iker Ingrid 12/18/24 documented as of this encounter
--- OUTSIDE RECORDS SUMMARY | 2025-03-29 01:50 | XMS_ITS | Encounter Summary ---
Author Organization [employer] Address 75 [facility] 7t [place] [address] Care Team Providers Care Hydraulic Rubbish Compactor Mechanic Name Role Phone Pascual Daly MD Primary Care Provide r Fani Heck PharmD Unavailable +5 Dasia Waters PharmD Unavailable [phone] Reason for Visit * Reason Comments Med Refill Encounter Details Date Type Department Care Team (Late st Contact Info) Description 10/21/2023 Refill [facility] [address] [place] [address] Titi Gray FNP Major depressive disorder with [...] Description 04/29/2025 10:00 AM EST Clinical Support [facility] [address] [place] [phone] Amanda Fernández RN 505 [place] [address] 08/24/2025 10:15 AM EDT Office Visit [facility] ADULT [facility]ENT[facility] [address] [place] [address] Primo Gaitanaris [address] [place] [address] documented as of this encounter Goals Goal [...] as of this encounter Care Teams Hydraulic Rubbish Compactor Mechanic Relationship Specialty Start Date End Date Pascual Daly MD 230 [place] [address] PCP - General Internal Medicine 02/22/14 Fani Heck, PharmD 230 [place] [address] Pharmacist Internal Medicine 12/16/22 08/15/24 Dasia Waters, KristiD 230 [place] [address] Pharmacist Internal Medicine 08/16/24 01/16/25 Iker MARCUSA 12/18/24 documented as of this encounter
--- OUTSIDE RECORDS SUMMARY | 2025-03-29 01:50 | XMS_ITS | Encounter Summary ---
Author Organization [employer] Address [address] [facility] 7t [place] [address] Care Team Providers Care Eyeglass Cutter Name Role Phone Pascual Daly MD Primary Care Provide r Reason for Visit * Reason Comments Med Refill Encounter Details Date Type Department Care Team ([facility] st Contact Info) Description 02/10/2025 Refill [facility] 230 [place], [place] [phone] Pascual Daly MD 230 [place] [address] Long-term current use of opiate analgesic Social [...] 04/29/2025 10:00 AM EST Clinical Support [facility] [address] [place] [address] Amanda Fernández RN 505 [place] [address] 08/24/2025 10:15 AM EDT Office Visit [facility] ADULT DENTAL 230 [place] [address] Kandy, Gabriela 230 [place] [address] documented as of this encounter Goals Goal [...] documented as of this encounter Care Teams Eyeglass Cutter Relationship Specialty Start Date End Date Pascual Daly MD [address] [place] [address] PCP - General Internal Medicine 02/22/14 Iker CORDERO 12/18/24 documented as of this encounter
--- OUTSIDE RECORDS SUMMARY | 2025-03-29 01:50 | XMS_ITS | Encounter Summary ---
Author Organization [employer] Address [address] [facility] 7t [place] [address] Care Team Providers Care Area Cleaner Name Role Phone Pascual Daly MD Primary Care Provide r Fani Heck PharmD Unavailable [phone] Dasia Waters PharmD Unavailable [phone] Encounter Details Date Type Department Care Team (Late Contact Info) Description 05/29/2022 Abstract [facility] [address] [place] [address] Pascual Daly MD 230 [place] [address] Social History Tobacco Use Types Packs/Day Years [...] Description 04/29/2025 10:00 AM EST Clinical Support [facility] [address] [place] [address] Amanda Fernández RN [address] [facility] [place] [address] 08/24/2025 10:15 AM EDT Office Visit [facility] ADULT DENTAL 230 [place] [address] Kandy Gabriela [address] [place] [address] documented as of this encounter Goals Goal Patient Goal Type Associated Problems Recent Progress Patient-Stated? Author Blood Pressure < 140/90 Blood Pressure 163/73( 025 10:17 AM EST) No Fani Heck, Woody documented as of this encounter Procedures Procedure Name Priority Date/Time Associated Diagnosis Comments MAMMOGRAPHY Routine 05/23/2022 documented in this encounter Results * Mammography (05/23/2022) HM Mammogram perform Anatomical Region Laterality Modality Other us Historical Provider HEALTH MAINTENANCE Final Result documented in this encounter Visit Diagnoses Not on filedocumented in this encounter Additional Health Concerns Assessment Noted Time PHQ-9 Depression Total Score: 9 04/25/19 23 11:31 AM EST documented as of this encounter Care Teams Area Cleaner Relationship Specialty Start Date End Date [place] [address] PCP - General Internal Medicine 02/22/14 Fani Heck, [place] [address] Pharmacist Internal Medicine 12/16/22 08/15/24 Dasia Waters [place] [address] Pharmacist Internal Medicine 08/16/24 01/16/25 Iker CORDERO 12/18/24 documented as of this encounter
--- OUTSIDE RECORDS SUMMARY | 2025-03-29 01:50 | XMS_ITS | Encounter Summary ---
Author Organization [employer] Address 75 [facility] 7t [place] [address] Care Team Providers Care Machinist General Name Role Phone Pascual Daly MD Primary Care Provide r Reason for Visit * Reason Onset Date Comments ED expect 03/28/2025 Encounter Details Date Type Department Care Team ([facility] st Contact Info) Description 03/28/2025 Telephone [facility] [address] [place] [address] Pascual Daly MD [address] [place] [address] ED expect Social History Tobacco Use Types Packs/Day Years [...] encounter Miscellaneous Notes * Telephone Encounter - Danni Fuller RN - 03/28/2025 11:11 AM EST TC placed to [facility] ED triage. This RN gave Ishmael FLORES verbal report and patient is arriving by private car. documented in this encounter Plan of Treatment Upcoming Encounters Date Type Department Care Team (Late st Contact Info) Description 04/29/2025 10:00 AM EST Clinical Support [facility] [address] [place] [address] Amanda Fernández RN 505 [place] [address] 08/24/2025 10:15 AM EDT Office Visit [facility] ADULT DENTAL [address] [place] [address] Gabriela Gaitan [address] [place] [address] documented as of this encounter Goals Goal [...] as of this encounter Care Teams Machinist General Relationship Specialty Start Date End Date Pascual Daly MD 230 [place] [address] PCP - General Internal Medicine 02/22/14 Iker CORDERO 12/18/24 documented as of this encounter
--- OUTSIDE RECORDS SUMMARY | 2025-03-29 01:50 | XMS_ITS | Encounter Summary ---
Author Organization [employer] Address [address] [facility] 7t [place] [address] Care Team Providers Care Pathology Laboratory Director Name Role Phone Pascual Daly MD Primary Care Provide r Fani Heck PharmD Unavailable +[phone] Dasia Waters PharmD Unavailable [phone] Encounter Details Date Type Department Care Team (Late st Contact Info) Description 03/11/[address] [facility] [address] [place] [address] Pascual Daly MD 230 [place] [address] Social History Tobacco Use Types Packs/Day Years [...] 04/29/2025 10:00 AM EST Clinical Support [facility] [address] [place] [address] Amanda Fernández RN 505 [place] [address] 08/24/2025 10:15 AM EDT Office Visit [facility] ADULT DENTAL [address] [place] [address] Gabriela Gaitan [address] [place] [address] documented as of this encounter Visit Diagnoses Not on filedocumented in this encounter Care Teams Pathology Laboratory Director Relationship Specialty Start Date End Date Pascual Daly MD [address] [place] [address] PCP - General Internal Medicine 02/22/14 Fani Heck, KristiD [address] [place] [address] Pharmacist Internal Medicine 12/16/22 08/15/24 Dasia Waters PharmD [address] [place] [address] Pharmacist Internal Medicine 08/16/24 01/16/25 Iker MARCUSA 12/18/24 documented as of this encounter
--- OUTSIDE RECORDS SUMMARY | 2025-03-29 01:50 | XMS_ITS | Data Portability ---
Author Organization [employer] [facility] Address [address] [place] [address] Care Team Providers Care Meat Packer Name Role Phone [facility] Referring Provider Assessment Encounter Date Assessment Date Assessment LastModified by Organization Details LastModified Time 04/11/2023 04/11/2023 I provided real -time medical direction via phone for this encounter, and was available for additional phone based assistance as needed. I have reviewed and agree with the Assessment and Plan as documented by the Bartenders. Patient given the opportunity to ask questions. Advised to call for another visit over the weekend if not improving in 2 to 3 days however if develops CP/severe SOB/turning blue/uncontrolle d n/v/d or black/bloody emesis or stool/ AMS/ syncope/ hi fever unresponsive to APAP to call 911- verbalized understanding of instructions [email or web address] Not available 04/12/2023 10:53:05 Plan of Treatment [...] Not available Not available Not available 04/11/2023 20731 5 RxNorm Anitha Camacho MD [address] [facility],[address], [place], [address] , [employer] 14:49:47 4127 Celebrex medicatio n Not available Not available Not available 04/11/2023 00384 7 Forrest Camacho MD [address] [facility],[address], [place], [address], [employer] 14:49:57 4128 tramadol medicatio n Not available Not available Not available 04/11/2023 06501 Forrest Camacho MD [address] [facility],[address], [place], [address], [employer] 14:50:04 Medications Name Sig Start Date [...] Available Not Available No t Available [employer] [place] Lite kit USE DIRECTED active Not Available [...] t Available Vitals Date Recorded Oxygen saturation Body weight Respiratory rate Body temperature Heart rate Systolic And Diastolic Provider Name and Address Organization Details Last Updated DateTime 3 97 % 51035.5 36 g 18 /min 97.8 [degF] 88 /min 167/84 mm[Hg] Not Available [employer] - production 3 [...] ICD10 Code Diagnosis IMO Codes Diagnosis Note [id number] Anitha Camacho MD Main - [facility] [address] [place] [phone] 04/11/2023 14:49:23 08/20/2024 13:15:45 Respiratory syncytial virus infection 98149896 B97.4 Continue medication s as prescribed ., [...] Patten Member ID Guarantor Name 08/20/2024 1 [facility] - DOS ON OR AFTER 2022 - DUAL ELIGIBLE - J[employer] OPTIONS AND ONE CARE (MEDICARE REPLACEMENT/ADV ANTAGE - HMO) Brandie Santana [id number] Brandie Santana Notes Date Note Type Note Provider Name and Address Organization Details Recorded Time 04/11/2023 text/html ROS as noted in the HPI HPI: 73 year old, Japanese speaking member, F, with hx of DM, HTN, Asthma, Depression, hx of falls and chronic pain, reporting worsesing Productive cough, shortness of breath with activities and fatigue, worsening head aches, treated at [facility] on 04/10/23 and dx with RSV. Reported has fever and chills, believes her BP is high. Her DOCTOR OF OPTOMETRY worker is with her and member asked [...] .................. .................. .................. .................. .................. .................. ............... Bartenders Note From Teddy Miranda: Pt sts dis not call for [employer]. [facility] set up appt. Pt was in ER yesterday diagnosed with RSV treated RX for ventalin and prednisone. Pt denies cp sob fever nausea diarrhea. Baseline vitals assessed. Lungs clear. No edema. [facility] [place] ..pt declined benzonatate. Pt advised self care and continue with RX meds. Pt education on signs indicating the ER. Bartenders Allergies: Lorazepam .................. .................. .................. .................. .................. .................. .................. ............... Disposition: Fulfilled Comments: Reviewed - Johana RNSEGMD: Patient seen yesterday evening [facility]. COvid negative per patient/ RSV +/She is using her albuterol every 4 hours. She is on prednisone. No nausea vomiting.Pat has hx that includes but not limited to: DM2/COPD/HTN/Fe deficiency anemia/hypothyroid ism/MDD with psychotic features/obesity status post laparoscopic gastrectomy/positi ve SUSAN/fibromyalgia. Anitha Camacho MD [address] [facility],[address], [place], [address], [place] ID - [employer] 04/12/2023 10:53:56 OBGyn Episode No OBEpisode recorded.
--- OUTSIDE RECORDS SUMMARY | 2025-03-29 01:50 | XMS_ITS | Encounter Summary ---
Author Organization [employer] Address [address] [facility] 7t [place] [address] Care Team Providers Care Restaurant Operations Manager Name Role Phone Pascual Daly MD Primary Care Provide r Reason for Visit * Reason Onset Date Comments Results 02/09/2025 Encounter Details Date Type Department Care Team ([facility] Contact Info) Description 02/09/2025 Results Follow-Up [facility] [address] [place] [address] Raven Polanco MD [address] [place] [address] XR KUB and Upright 2 Views Social [...] related to KUB results, pt states her ASSISTANT PROFESSOR OF PHILOSOPHY is gone and she can't get to the hospital patient I then told the patient I would initiate an EMS call for ambulance transportation to hospital pt is in agreement. 911 contacted and dispatchedto pt home address which she verified over the phone. Also contact [facility] for an expect. Will forward to [...] 04/29/2025 10:00 AM EST Clinical Support [facility] [address] [place] [address] Amanda Fernández RN [address] [place] [address] 08/24/2025 10:15 AM EDT Office Visit [facility] ADULT DENTAL [address] [place] [address] Gabriela Gaitan [address] [place] [address] documented as of this encounter Goals Goal [...] documented as of this encounter Care Teams Restaurant Operations Manager Relationship Specialty Start Date End Date Pascual Daly MD [address] [place] [address] PCP - General Internal Medicine 02/22/14 Iker CORDERO 12/18/24 documented as of this encounter
--- OUTSIDE RECORDS SUMMARY | 2025-03-29 01:50 | XMS_ITS | Encounter Summary ---
Author Organization [employer] Address [address] [facility] 7t [place] [address] Care Team Providers Care Wine Maker Name Role Phone Pascual Daly MD Primary Care Provide r Fani Heck PharmD Unavailable [phone] Dasia Waters PharmD Unavailable [phone] Encounter Details Date Type Department Care Team (Latest Contact Info) Description 05/26/2019 Abstract [facility] CONVERSIONS Dental, Provider, DDS Social History Tobacco [...] Description 04/29/2025 10:00 AM EST Clinical Support [facility] MEDICINE [address] [place] [address] Amanda Fernández, AALIYAH [address] [place] [address] 08/24/2025 10:15 AM EDT Office Visit [facility] ADULT DENTAL [address] [place] [address] KandyGabriela [address] [place] [address] documented as of this encounter Visit Diagnoses Not on filedocumented in this encounter Care Teams Wine Maker Relationship Specialty Start Date End Date Pascual Daly MD [address] [place] [address] PCP - General Internal Medicine 02/22/14 Fani Heck, KristiD [address] [place] [address] Pharmacist Internal Medicine 12/16/22 08/15/24 Dasia Waters PharmD [address] [place] [address] Pharmacist Internal Medicine 08/16/24 01/16/25 Iker MARCUSA 12/18/24 documented as of this encounter
--- OUTSIDE RECORDS SUMMARY | 2025-03-29 01:50 | XMS_ITS | Encounter Summary ---
Author Organization [employer] Address [address] [facility] 7t [place] [address] Care Team Providers Care Balance Assembler Name Role Phone Pascual Daly MD Primary Care Provide r Fani Heck PharmD Unavailable +0 Dasia Waters PharmD Unavailable [phone] Reason for Visit * Reason Onset Date Comments FYI 12/11/2023 Durable Medical Equipment 12/11/2023 Encounter Details Date Type Department Care Team (Late st Contact Info) Description 12/11/2023 Telephone [facility] [address] [place], [place] [phone] Pascual Daly MD [address] [place], [place] [phone] FYI ; Durable Medical Equipment Social History [...] EDT Tc from [facility] with [facility] informing that pt had 2 falls within the last 3 days and is requesting two DME scripts to be sent to [facility] which: [facility] bed Please fax over to [phone] documented in this encounter Plan of Treatment Upcoming Encounters Date Type Department Care Team (Late st Contact Info) Description 04/29/2025 10:00 AM EST Clinical Support [facility] [address] [place] [address] Amanda Fernández RN [address] [place] [address] 08/24/2025 10:15 AM EDT Office Visit [facility] ADULT DENTAL [address] [place] [address] Gabriela Gaitan [address] [place] [address] documented as of this encounter Goals Goal [...] documented as of this encounter Care Teams Balance Assembler Relationship Specialty Start Date End Date Pascual Daly MD [address] [place] [address] PCP - General Internal Medicine 02/22/14 Fani Heck, PharmD [address] [place] [address] Pharmacist Internal Medicine 12/16/22 08/15/24 Dasia Waters PharmD [address] [place] [address] Pharmacist Internal Medicine 08/16/24 01/16/25 Iker MARCUSA 12/18/24 documented as of this encounter
--- OUTSIDE RECORDS SUMMARY | 2025-03-29 01:50 | XMS_ITS | Encounter Summary ---
Author Organization [employer] Address 75 [facility] [address]t [place] [address] Care Team Providers Care Grease Maker Name Role Phone Pascual Daly MD Primary Care Provide r Fani Heck PharmD Unavailable [phone] Dasia Waters PharmD Unavailable [phone] Reason for Visit * Reason Onset Date Comments FYI 11/06/2023 Encounter Details Date Type Department Care Team ([facility] st Contact Info) Description 11/06/2023 Telephone [facility] [address] [place], [place] [phone] Pascual Daly MD [address] [place] [address] Social History Tobacco Use Types Packs/Day Years [...] - 11/06/2023 4:39 PM EDT Tc from [facility] Iker CORDERO PT informing pt has started services For PT 11/06/23 documented in this encounter Plan of Treatment Upcoming Encounters Date Type Department Care Team (Late st Contact Info) Description 04/29/2025 10:00 AM EST Clinical Support [facility] [address] [place] [address] Amanda Fernández RN [address] [place] [address] 08/24/2025 10:15 AM EDT Office Visit [facility] ADULT DENTAL [address] [place] [address] Gabriela Gaitan [address] [place] [address] documented as of this encounter Goals Goal [...] documented as of this encounter Care Teams Grease Maker Relationship Specialty Start Date End Date Pascual Daly MD [address] [place] [address] PCP - General Internal Medicine 02/22/14 Fani Heck PharmD [address] [place] [address] Pharmacist Internal Medicine 12/16/22 08/15/24 Dasia Waters PharmD [address] [place] [phone] Pharmacist Internal Medicine 08/16/24 01/16/25 Iker MARCUSA 12/18/24 documented as of this encounter
--- OUTSIDE RECORDS SUMMARY | 2025-03-29 01:50 | XMS_ITS | Encounter Summary ---
Author Organization [employer] Address 75 [facility] 7t [place] [address] Care Team Providers Care Optometrist/Practice Owner Name Role Phone Pascual Daly MD Primary Care Provide r Reason for Visit * Reason Onset Date Comments Med Refill 03/14/2025 Encounter Details Date Type Department Care Team ([facility] st Contact Info) Description 03/14/2025 Telephone [facility] MEDICINE [address] [place] [address] Pascual Daly MD 230 [place] [address] Med Refill Social History Tobacco Use Types [...] encounter Miscellaneous Notes * Telephone Encounter - Luis M Vargas - 03/14/2025 10:01 AM EST TC from pt requesting medication refill. Medications needing refill : oxyCODONE (Roxicodone) 5 MG immediate release tablet To be sent to: [facility] - [place], [place] - [address] [place] [address] documented in this encounter Plan of Treatment Upcoming Encounters Date Type Department Care Team ([facility] st Contact Info) Description 04/29/2025 10:00 AM EST Clinical Support [facility] MED[facility] [address] [place] [address] Amanda Fernández RN 505 [place] [address] 08/24/2025 10:15 AM EDT Office Visit [facility] ADULT DENTAL [address] [place] [address] Gabriela Gaitan [address] [place] [address] documented as of this encounter Goals Goal [...] documented as of this encounter Care Teams Optometrist/Practice Owner Relationship Specialty Start Date End Date Pascual Daly MD 230 [place] [address] PCP - General Internal Medicine 02/22/14 Ovid VNIngrid 12/18/24 documented as of this encounter
--- OUTSIDE RECORDS SUMMARY | 2025-03-29 01:50 | XMS_ITS | Encounter Summary ---
Author Organization [employer] Address 75 [facility] 7t [place] [address] Care Team Providers Care Lawyer Probate Name Role Phone Pascual Daly MD Primary Care Provide r Fani Heck PharmD Unavailable + Dasia Waters PharmD Unavailable [phone] Reason for Visit * Reason Comments Med Refill Encounter Details Date Type Department Care Team (Late st Contact Info) Description 10/21/2023 Refill [facility] MED[facility]INE [address] [place] [address] Titi Gray FNP Major depressive disorder with [...] Description 04/29/2025 10:00 AM EST Clinical Support [facility] [address] [place] [address] Amanda Fernández RN 505 [place] [address] 08/24/2025 10:15 AM EDT Office Visit [facility] ADULT DENTAL [address] [place] [address] Primo Gaitanaris [address] [place] [address] documented as of this encounter Goals Goal [...] documented as of this encounter Care Teams Lawyer Probate Relationship Specialty Start Date End Date Pascual Daly MD 230 [place] [address] PCP - General Internal Medicine 02/22/14 Fani Heck, PharmD 230 [place] [address] Pharmacist Internal Medicine 12/16/22 08/15/24 Dasia Waters, KristiD 230 [place] [address] Pharmacist Internal Medicine 08/16/24 01/16/25 Iker MARCUSA 12/18/24 documented as of this encounter
--- OUTSIDE RECORDS SUMMARY | 2025-03-29 01:50 | XMS_ITS | Encounter Summary ---
Author Organization [employer] Address 75 [facility] 7t [place] [address] Care Team Providers Care Housing Counselor Name Role Phone Pascual Daly MD Primary Care Provide r Encounter Details Date Type Department Care Team (Late st Contact Info) Description 03/28/2025 Orders Only GENERIC EXTERNAL DATA DEPARTMENT [...] Description 04/29/2025 10:00 AM EST Clinical Support [facility]ICINE [address] [place] [address] Amanda Fernández, AALIYAH 505 [place] [address] 08/24/2025 10:15 AM EDT Office Visit [facility] ADULT DENTAL [address] [place] [address] Kandy, Gabriela [address] [place] [address] documented as of this encounter Goals Goal Patient Goal Type Associated Problems Recent Progress Patient-Stated? Author Blood Pressure < 140/90 Blood Pressure 163/73( 025 10:17 AM EST) No Fani Heck, PharmD documented as of this encounter Procedures Procedure Name Priority Date/Time Associated Diagnosis Comments CBC WITH AUTO DIFFERENTIAL Routine 03/28/2025 11:48 AM EST APTT Routine 03/28/2025 11:48 AM EST PROTHROMBIN TIME-INR Routine 03/28/2025 11:48 AM EST COMPREHENSIVE METABOLIC PANEL Routine 03/28/2025 11:48 AM EST documented in this encounter Results * (ABNORMAL) Comprehensive Metabolic Panel (03/28/2025 11:48 AM EST) Sodium 140 135 - 145 mmol/L [facility] Potassium 4.4 3.3 - 5.1 mmol/L [facility] Chloride 104 96 - 108 mmol/L [facility] Carbon Dioxide 26 22 - 29 mmol/L [facility] Anion Gap 14 12 - 20 [facility] Urea Nitrogen (BUN) 22(H) 9 - 16 mg/dL [facility] Creatinine, Serum 1.07 0.5 - 1.4 mg/dL [facility] Creatinine Clr Calc Pharmacy 39.0 [facility] Comment:Provided height and weight: 149.86 cm,71.4 kg.eGFR (calculated from the MDRD study equation) and eCrCl(calculated from the Cockcroft-Gault equation) are based ondifferent parameters and may not yield comparable results.If eCrCl result is absurd, please check patient'sheight/weight. Estimated Glomerular Filt Rate 50 [facility] Comment:Chronic Kidney Disea se: Estimated GFR < 60 mL/min/1.11p8Sacuep Kidney Disease: Estimated GFR < 15 mL/min/1.73m2 Glucose 232(H) 60 - 115 mg/dL [facility] Calcium 9.5 8.4 - 10.2 mg/dL [facility] Bilirubin, Total 0.4 0.0 - 1.0 mg/dL [facility] Aspartate Amino Transferase 31 5 - 31 U/L [facility] Alanine Aminotransferase 39(H) 0 - 31 U/L [facility] Total Protein 6.2(L) 6.5 - 8.0 g/dL [facility] Albumin Level 4.1 3.5 - 5.0 g/dL [facility] Alkaline Phosphatase 94 39 - 117 U/L [facility] 03/28/2025 11:4 8 AM EST 03/28/2025 11:51 AM EST us Generic External Data Provider LAB BLOOD ORDERAB LES Final Result [facility] [address] [place] [address] [phone] * Partial Thromboplastin Time, Activated (APTT) (03/28/2025 11:48 AM EST) Partial Thromboplastin Time 28.5 26.7 - 34.1 SEC [facility] 03/28/2025 11:4 8 AM EST 03/28/2025 11:51 AM EST Generic External Data Provider LAB BLOOD ORDERAB LES Final Result Performing Organization Address [facility] Co de Phone Number [facility] [address] [place] [phone] * (ABNORMAL) Prothrombin Time-INR (03/28/2025 11:48 AM EST) Pathologist [facility] Prothrombin Time 10.8(L) 11.2 - 13.5 SEC [facility] INTERNATIONAL NORM RATIO 0.9 0.9 - 1.1 [facility] Comment:INTERNATIONAL NORMAL IZED RATIO (INR) [...] ORDERAB LES Final Result Performing Organization Address City/[facility] Co de Phone Number [facility] [address] [place] [phone] * (ABNORMAL) CBC auto differential (03/28/2025 11:48 AM EST) White Blood Count 8.5 4.8 - 10.8 X10*3/uL [facility] Red Blood Count 4.10(L) 4.20 - 5.50 X10*6/uL [facility] Hemoglobin 11.2(L) 12.0 - 16.0 g/dl [facility] Hematocrit 35.4(L) 37.0 - 47.0 % [facility] Mean Corpuscular Volume 86.3 80.0 - 98.0 fL [facility] Mean Corpuscular Hemoglobin 27.3 27.0 - 33.0 pg [facility] Mean Corpuscular HGB Conc 31.6 31.0 - 35.0 g/dl [facility] Red Cell Distribution Width 14.7 11.0 - 16.0 % [facility] Platelet Count 195 160 - 400 X10*3/uL [facility] Mean Platelet Volume 11.1 9.4 - 12.3 fL [facility] Neutrophils Percent Auto 54.4 45 - 73 % [facility] Imm Gran Pct Auto 0.2 0.0 - 0.4 % [facility] Lymphocytes Percent Auto 26.5 20 - 40 % [facility] Monocytes Percent Auto 7.3 2 - 11 % [facility] Eosinophils Percent Auto 10.7(H) 0 - 4 % [facility] Basophils Percent Auto 0.9 0 - 2 % [facility] NRBC Pct Auto 0.0 0.0 - 0.2 /100WBC [facility] Neutrophils Absolute Auto 4.7 2.0 - 8.3 x10*3/uL [facility] Imm Gran Abs Auto 0.02 0.00 - 0.03 X10*3/uL [facility] Lymphocytes Absolute Auto 2.3 1.2 - 4.9 X10*3/uL [facility] Monocytes Absolute Auto 0.6 0.1 - 1.2 X10*3/uL [facility] Eosinophils Absolute Auto 0.9(H) 0.0 - 0.4 X10*3/uL [facility] Basophils Absolute Auto 0.1 0.0 - 0.2 X10*3/uL [facility] NRBC Abs Auto 0.000 0.0 - 0.012 X10*3/uL [facility] 03/28/2025 11:4 8 AM EST 03/28/2025 11:51 AM EST us Generic External Data Provider LAB BLOOD ORDERAB LES Final Result [facility] [address] [place] [phone] documented in this encounter Visit Diagnoses Not on filedocumented in this encounter Additional Health Concerns Assessment Noted Time PHQ-9 Depression Total Score: 12 025 9:30 AM EDT documented as of this encounter Care Teams Housing Counselor Relationship Specialty Start Date End Date Pascual Daly MD [address] [place] [address] PCP - General Internal Medicine 02/22/14 Iker MARCUSA 12/18/24 documented as of this encounter
--- OUTSIDE RECORDS SUMMARY | 2025-03-29 01:50 | XMS_ITS | Encounter Summary ---
Author Organization [employer] Address 75 [facility] 7t [place] [address] Care Team Providers Care Career Technical Supervisor Name Role Phone Pascual Daly MD Primary Care Provide r Fani Heck PharmD Unavailable +2 Dasia Waters PharmD Unavailable [phone] Encounter Details Date Type Department Care Team (Late st Contact Info) Description 03/13/2022 Abstract [facility] MEDICINE [address] [place] [phone] Provider, MD Bill Social History Tobacco Use [...] Support [facility] MEDICINE [address] [place] [address] Amanda Fernández RN 505 [place] [address] 08/24/2025 10:15 AM EDT Office Visit [facility] ADULT DENTAL [address] [place] [address] Gabriela Gaitan [address] [place] [address] documented as of this encounter Visit Diagnoses Not on filedocumented in this encounter Care Teams Career Technical Supervisor Relationship Specialty Start Date End Date Pascual Daly MD [address] [place] [address] PCP - General Internal Medicine 02/22/14 Fani Heck PharmD [address] [place] [address] Pharmacist Internal Medicine 12/16/22 08/15/24 Dasia Waters PharmD [address] [place] [address] Pharmacist Internal Medicine 08/16/24 01/16/25 Iker MARCUSA 12/18/24 documented as of this encounter
--- OUTSIDE RECORDS SUMMARY | 2025-03-29 01:50 | XMS_ITS | Encounter Summary ---
Author Organization [employer] Address 75 [facility] 7t [place] [address] Care Team Providers Care Burner Operator Name Role Phone Pascual Daly MD Primary Care Provide r Fani Heck PharmD Unavailable +5 Dasia Waters PharmD Unavailable [phone] Reason for Visit * Reason Onset Date Comments Med Refill 12/15/2023 Encounter Details Date Type Department Care Team ([facility] st Contact Info) Description 12/15/2023 Telephone [facility] MEDICINE [address] [place], [place] [phone] Pascual Daly MD [address] [place] [address] Med Refill Social History Tobacco Use Types [...] immediate release tablet To be sent to: [facility] - [place], [place] - [address] [place] [address] documented in this encounter Plan of Treatment Upcoming Encounters Date Type Department Care Team ([facility] st Contact Info) Description 04/29/2025 10:00 AM EST Clinical Support [facility] MEDICINE [address] [place] [address] Amanda Fernández RN [address] [place] [address] 08/24/2025 10:15 AM EDT Office Visit [facility] ADULT DENTAL [address] [place] [address] Gabriela Gaitan [address] [place] [address] documented as of this encounter Goals Goal [...] documented as of this encounter Care Teams Burner Operator Relationship Specialty Start Date End Date Pascual Daly MD [address] [place] [address] PCP - General Internal Medicine 02/22/14 Fani Heck, PharmD [address] [place] [address] Pharmacist Internal Medicine 12/16/22 08/15/24 Dasia Waters PharmD [address] [place] [address] Pharmacist Internal Medicine 08/16/24 01/16/25 Iker VNA 12/18/24 documented as of this encounter
--- OUTSIDE RECORDS SUMMARY | 2025-03-29 01:50 | XMS_ITS | Encounter Summary ---
Author Organization [employer] Address 75 [facility] 7t [place] [address] Care Team Providers Care Supervisor Pleating Name Role Phone Pascual Daly MD Primary Care Provide r Fani Heck PharmD Unavailable +- Dasia Waters PharmD Unavailable [phone] Encounter Details Date Type Department Care Team (Late st Contact Info) Description 03/11/2022 Abstract [facility] MEDICINE [address] [place] [address] Fani Heck, PharmD 230 [place] [address] Social History Tobacco Use Types Packs/Day Years [...] Description 04/29/2025 10:00 AM EST Clinical Support [facility] MEDICINE [address] [place] [address] Amanda Fernández RN 505 [place] [address] 08/24/2025 10:15 AM EDT Office Visit [facility] ADULT DENTAL [address] [place] [address] Gabriela Gaitan [address] [place] [address] documented as of this encounter Visit Diagnoses Not on filedocumented in this encounter Care Teams Supervisor Pleating Relationship Specialty Start Date End Date Pascual Daly MD [address] [place] [address] PCP - General Internal Medicine 02/22/14 Fani Heck, KristiD [address] [place] [address] Pharmacist Internal Medicine 12/16/22 08/15/24 Dasia Waters PharmD [address] [place] [phone] Pharmacist Internal Medicine 08/16/24 01/16/25 Iker MARCUSA 12/18/24 documented as of this encounter
--- OUTSIDE RECORDS SUMMARY | 2025-03-29 01:50 | XMS_ITS | Encounter Summary ---
Author Organization [employer] Address 75 [facility] 7t [place] [address] Care Team Providers Care Physicist Light And Optics Name Role Phone Pascual Daly MD Primary Care Provide r Encounter Details Date Type Department Care Team (Latest Contact Info) Description 03/28/2025 Travel Social History Tobacco Use Types Packs/Day [...] Description 04/29/2025 10:00 AM EST Clinical Support [facility] MEDICINE [address] [place] [address] Amanda Fernández RN [address] [place] [address] 08/24/2025 10:15 AM EDT Office Visit [facility] ADULT DENTAL [address] [place] [address] Gabriela Gaitan [address] [place] [address] documented as of this encounter Goals Goal [...] documented as of this encounter Care Teams Physicist Light And Optics Relationship Specialty Start Date End Date Pascual Daly MD 230 [place] [address] PCP - General Internal Medicine 02/22/14 Iker MARCUSA 12/18/24 documented as of this encounter
== END 2025-03-28 16:52 | disposition home or self-care (01) ==
PROVIDERS: Physician Assistant; Emergency Provider Emergency Medicine; PCP Internal Medicine
DX: R04.0 Epistaxis (principal); E10.9 Type 1 diabetes mellitus without complications; E78.5 Hyperlipidemia, unspecified; I10 Essential (primary) hypertension; E03.9 Hypothyroidism, unspecified; F41.9 Anxiety disorder, unspecified; Z79.899 Other long term (current) drug therapy; Z79.4 Long term (current) use of insulin
CPT/HCPCS: 36415; 80053; 85025; 85610; 85730; 99283; 99284

== ENCOUNTER 2025-04-01 03:42 | Emergency (ER) | payer OTHER, SELFPAY ==
--- OUTSIDE RECORDS SUMMARY | 2025-03-28 10:00 | XMS_ITS | Encounter Summary ---
Author Organization [employer] Address [address] [facility] [address] [place] [address] Care Team Providers Care Property Field Inspector Name Role Phone Pascual Daly MD Primary Care Provide r Reason for Visit * Reason Comments Epistaxis (Nose Bleed) Encounter Details Date Type Department Care Team ([facility] st Contact Info) Description 03/28/2025 10:00 AM EST Office Visit [facility] [address] [place] [address] Momo Rizo MD [address] [place] [address] Left-sided epistaxis (Primary Dx); Hypertension, unspecified type [...] Brandie Santana is a 75 y.o. female. 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 Tried OTC saline nasal spray. Takes Plavix. States home BP readings range from a little high to normal. Took medications today. No fever, cough. Lives alone. 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 Never smoked. 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 01/14/2025 Shortness of breath 01/14/2025 Joint swelling 01/14/2025 Swelling of knee joint, right 01/14/2025 Trigger finger, left ring finger 01/14/2025 Urinary incontinence 01/04/2025 Aphthous ulcer 09/16/2024 Coronary artery disease involving enterprise coronary artery of enterprise heart without angina pectoris 08/12/2024 Dental plaque [...] involving multiple sites with positive rheumatoid factor ([facility]) ([facility]) 08/27/2022 Gastroesophageal reflux disease without esophagitis 05/13/2022 Major depressive disorder with psychotic features ([facility]) ([facility]) 03/26/2022 Neuropathy, cervical 02/13/2018 Hypertension 09/02/2012 Recurrent falls 12/04/2011 Type 2 diabetes mellitus with right eye affected by mild nonproliferative retinopathy without macular edema, with long-term current use of insulin ([facility]) 04/21/1959 Eczema 04/21/1959 Fibromyalgia 04/21/1959 Hyperlipidemia 04/21/1959 [...] Description 04/29/2025 10:00 AM EST Clinical Support [facility] [address] [place] [address] Amanda Fernández RN [address] [place] [address] 08/24/2025 10:15 AM EDT Office Visit [facility] [address] [place] [address] Kandy, Gabriela [address] [place] [address] documented as of this encounter Goals Goal [...] documented as of this encounter Care Teams Property Field Inspector Relationship Specialty Start Date End Date Pascual Daly MD [address] [place] [address] PCP - General Internal Medicine 02/22/14 Iker MARCUSA 12/18/24 documented as of this encounter
[2025-04-01 03:57] VITALS: BP 134/46; BP 180/90; PULSE 104; PULSE 95; RESP 20; TEMP 36.7; O2SAT 96; O2SAT 97; BMI 30.7
--- OUTSIDE RECORDS SUMMARY | 2025-04-01 04:20 | XMS_ITS | Encounter Summary ---
Author Organization [employer] Address 75 [facility] 7t [place] [address] Care Team Providers Care Booth Cashier Name Role Phone Pascual Daly MD Primary Care Provide r Fani Heck PharmD Unavailable +7 Dasia Waters PharmD Unavailable [phone] Reason for Visit * Reason Comments Med Refill Encounter Details Date Type Department Care Team (Late Contact Info) Description 12/28/2022 Refill [facility] MEDICINE 230 [place] [address] Titi Gray FNP Major depressive disorder with [...] 10:00 AM EST Clinical Support [facility] MEDICINE 230 [place] [address] Amanda Fernández RN [address] [place] [address] 08/24/2025 10:15 AM EDT Office Visit [facility] ADULT DENTAL [address] [place] [address] Gabriela Gaitan 230 [place] [address] documented as of this encounter Goals Goal [...] documented as of this encounter Care Teams Booth Cashier Relationship Specialty Start Date End Date Pascual Daly MD [address] [place] [address] PCP - General Internal Medicine 02/22/14 Fani Heck, PharmD [address] [place] [address] Pharmacist Internal Medicine 12/16/22 08/15/24 Dasia Waters, PharmD [address] [place] [address] Pharmacist Internal Medicine 08/16/24 01/16/25 Iker VNA 12/18/24 documented as of this encounter
--- OUTSIDE RECORDS SUMMARY | 2025-04-01 04:20 | XMS_ITS | Encounter Summary ---
Author Organization [employer] Address 75 [facility] 7t [place] [address] Care Team Providers Care Instructional Designer Name Role Phone Pascual Daly MD Primary Care Provide r Fani Heck PharmD Unavailable +6 Dasia Waters PharmD Unavailable [phone] Reason for Visit * Reason Comments Med Refill Encounter Details Date Type Department Care Team (Late st Contact Info) Description 08/26/2023 Refill [facility] 230 [place], [place] [phone] Momo Rizo MD 230 [place] [address] Benign hypertension Social History Tobacco Use Types [...] Clinical Support [facility] MEDICINE [address] [place] [address] Amanda Fernández, AALIYAH 505 [place] [address] 08/24/2025 10:15 AM EDT Office Visit [facility] ADULT DENTAL [address] [place] [address] Kandy, Gabriela [address] [place] [address] documented as of this encounter Goals Goal [...] documented as of this encounter Care Teams Instructional Designer Relationship Specialty Start Date End Date Pascual Daly MD [address] [place] [address] PCP - General Internal Medicine 02/22/14 Fani Heck, PharmD [address] [place] [address] Pharmacist Internal Medicine 12/16/22 08/15/24 Dasia Waters, Woody [address] [place] [address] Pharmacist Internal Medicine 08/16/24 01/16/25 [place] A 12/18/24 documented as of this encounter
--- OUTSIDE RECORDS SUMMARY | 2025-04-01 04:20 | XMS_ITS | Encounter Summary ---
Author Organization [employer] Address 75 [facility] 7t [place] [address] Care Team Providers Care Appeals Specialist Name Role Phone Pascual Daly MD Primary Care Provide r Fani Heck PharmD Unavailable +[phone] Dasia Waters PharmD Unavailable [phone] Reason for Visit * Reason Onset Date Comments Appointment Request 09/03/2022 Encounter Details Date Type Department Care Team ([facility] st Contact Info) Description 09/03/2022 Telephone [facility] MEDICINE 230 [place], [place] [phone] Pascual Daly MD [address] [place] [address] Appointment Request Social History Tobacco Use Types [...] Description 04/29/2025 10:00 AM EST Clinical Support [facility] [address] [place] [address] Amanda Fernández, AALIYAH [address] [place], [place] [phone] 08/24/2025 10:15 AM EDT Office Visit [facility] ADULT DENTAL [address] [place] [address] Gabriela Gaitan 230 [place] [address] documented as of this encounter Goals Goal [...] documented as of this encounter Care Teams Appeals Specialist Relationship Specialty Start Date End Date Pascual Daly MD [address] [place] [address] PCP - General Internal Medicine 02/22/14 Fani Heck, Woody [address] [place] [address] Pharmacist Internal Medicine 12/16/22 08/15/24 Dasia Waters PharmD [address] [place] [address] Pharmacist Internal Medicine 08/16/24 01/16/25 Iker CORDERO 12/18/24 documented as of this encounter
--- OUTSIDE RECORDS SUMMARY | 2025-04-01 04:20 | XMS_ITS | Encounter Summary ---
Author Organization [employer] Address 75 [facility] 7t [place] [address] Care Team Providers Care Cathead Worker Name Role Phone Pascual Daly MD Primary Care Provide r Fani Heck PharmD Unavailable +0 Dasia Waters PharmD Unavailable [phone] Reason for Visit * Reason Comments Med Refill Encounter Details Date Type Department Care Team ([facility] st Contact Info) Description 03/27/2023 Refill [facility] [address] [place] [address] Titi Gray FNP Major depressive disorder with [...] Clinical Support [facility] MEDICINE [address] [place] [address] Amanda Fernández RN 505 [place] [address] 08/24/2025 10:15 AM EDT Office Visit [facility] ADULT DENTAL [address] [place] [address] Kandy, Gabriela [address] [place] [address] documented as of this encounter Goals Goal [...] documented as of this encounter Care Teams Cathead Worker Relationship Specialty Start Date End Date Pascual Daly MD [address] [place] [address] PCP - General Internal Medicine 02/22/14 Fani Heck, PharmD [address] [place] [address] Pharmacist Internal Medicine 12/16/22 08/15/24 Dasia Waters, KristiD [address] [place] [address] Pharmacist Internal Medicine 08/16/24 01/16/25 Iker MARCUSA 12/18/24 documented as of this encounter
--- OUTSIDE RECORDS SUMMARY | 2025-04-01 04:20 | XMS_ITS | Encounter Summary ---
Author Organization [employer] Address 75 [facility] 7t [place] [address] Care Team Providers Care Presales Consultant Name Role Phone Pascual Daly MD Primary Care Provide r Fani Heck PharmD Unavailable +0 Dasia Waters PharmD Unavailable [phone] Reason for Visit * Reason Comments Med Refill Encounter Details Date Type Department Care Team ([facility] st Contact Info) Description 07/16/2022 Refill [facility] MEDICINE [address] [place] [address] Pascual Daly MD [address] [place] [address] Social History Tobacco Use Types Packs/Day Years [...] Description 04/29/2025 10:00 AM EST Clinical Support [facility] MEDICINE [address] [place] [address] Amanda Fernández, RN [address] [facility] [place] [address] 08/24/2025 10:15 AM EDT Office Visit [facility] ADULT DENTAL [address] [place] [address] Kandy Gabriela [address] [place] [address] documented as of this encounter Goals Goal [...] documented as of this encounter Care Teams Presales Consultant Relationship Specialty Start Date End Date Pascual Daly MD [address] [place] [address] PCP - General Internal Medicine 02/22/14 Fani Heck, PharmD [address] [place] [address] Pharmacist Internal Medicine 12/16/22 08/15/24 Dasia Waters PharmD [address] [place] [phone] Pharmacist Internal Medicine 08/16/24 01/16/25 Iker VNA 12/18/24 documented as of this encounter
--- OUTSIDE RECORDS SUMMARY | 2025-04-01 04:20 | XMS_ITS | Encounter Summary ---
Author Organization [employer] Address 75 [facility] 7t [place] [address] Care Team Providers Care Fuel Conversion Technician Name Role Phone Pascual Daly MD Primary Care Provide r Fani Heck PharmD Unavailable +0 Dasia Waters PharmD Unavailable [phone] Reason for Visit * Reason Comments Med Refill Encounter Details Date Type Department Care Team (Late Contact Info) Description 10/02/2022 Refill [facility] MEDICINE [address] [place] [address] Titi Gray FNP Major depressive disorder with [...] Description 04/29/2025 10:00 AM EST Clinical Support [facility] MEDICINE [address] [place] [address] Amanda Fernández RN 505 [place], [place] [phone] 08/24/2025 10:15 AM EDT Office Visit [facility] ADULT DENTAL [address] [place] [address] Gabriela Gaitan 230 [place] [address] documented as of this encounter Goals Goal [...] documented as of this encounter Care Teams Fuel Conversion Technician Relationship Specialty Start Date End Date Pascual Daly MD [address] [place] [address] PCP - General Internal Medicine 02/22/14 Fani Heck, PharmD [address] [place] [address] Pharmacist Internal Medicine 12/16/22 08/15/24 Dasia Waters, KristiD [address] [place] [address] Pharmacist Internal Medicine 08/16/24 01/16/25 [place] [facility] 12/18/24 documented as of this encounter
--- OUTSIDE RECORDS SUMMARY | 2025-04-01 04:20 | XMS_ITS | Encounter Summary ---
Author Organization [employer] Address 75 [facility] 7t [place] [address] Care Team Providers Care Stringer Machine Tender Name Role Phone Pascual Daly MD Primary Care Provide r Fani Heck PharmD Unavailable + Dasia Waters PharmD Unavailable [phone] Reason for Visit * Reason Comments Med Refill Encounter Details Date Type Department Care Team ([facility] st Contact Info) Description 09/26/2023 Refill [facility] MEDICINE 230 [place] [address] Pascual Daly MD 230 [place] [address] Social History Tobacco Use Types Packs/Day Years [...] Description 04/29/2025 10:00 AM EST Clinical Support [facility] MEDICINE 230 [place] [address] Amanda Fernández, AALIYAH 505 [place] [address] 08/24/2025 10:15 AM EDT Office Visit [facility] ADULT DENTAL 230 [place] [address] Kandy, Gabriela 230 [place] [address] documented as of this encounter Goals Goal [...] documented as of this encounter Care Teams Stringer Machine Tender Relationship Specialty Start Date End Date Pascual Daly MD 230 [place] [address] PCP - General Internal Medicine 02/22/14 Fani Heck, KristiD 230 [place] [address] Pharmacist Internal Medicine 12/16/22 08/15/24 Dasia Waters PharmD 230 [place] [address] Pharmacist Internal Medicine 08/16/24 01/16/25 [place] [facility] 12/18/24 documented as of this encounter
--- OUTSIDE RECORDS SUMMARY | 2025-04-01 04:20 | XMS_ITS | Encounter Summary ---
Author Organization [employer] Address 75 [facility] 7t [place] [address] Care Team Providers Care Marketing Segment Manager Name Role Phone Pascual Daly MD Primary Care Provide r Fani Heck PharmD Unavailable + Dasia Waters PharmD Unavailable [phone] Reason for Visit * Reason Comments Med Refill Encounter Details Date Type Department Care Team (Late st Contact Info) Description 01/01/2024 Refill [facility] 230 [place] [address] Momo Rizo MD 230 [place] [address] Social History Tobacco Use Types Packs/Day Years [...] Description 04/29/2025 10:00 AM EST Clinical Support [facility] MEDICINE [address] [place] [address] Amanda Fernández RN 505 [place] [address] 08/24/2025 10:15 AM EDT Office Visit [facility] ADULT DENTAL 230 [place] [address] Kandy, Gabriela 230 [place] [address] documented as of this encounter Goals Goal [...] as of this encounter Care Teams Marketing Segment Manager Relationship Specialty Start Date End Date Pascual Daly MD 230 [place] [address] PCP - General Internal Medicine 02/22/14 Fani Heck, KristiD 230 [place] [address] Pharmacist Internal Medicine 12/16/22 08/15/24 Dasia Waters PharmD 230 [place] [address] Pharmacist Internal Medicine 08/16/24 01/16/25 [place] A 12/18/24 documented as of this encounter
--- OUTSIDE RECORDS SUMMARY | 2025-04-01 04:20 | XMS_ITS | Encounter Summary ---
Author Organization [employer] Address 75 [facility] 7t [place] [address] Care Team Providers Care Coin Box Inspector Name Role Phone Pascual Daly MD Primary Care Provide r Dasia Waters PharmD Unavailable [phone] Reason for Visit * Reason Onset Date Comments Med Refill 09/30/2024 Encounter Details Date Type Department Care Team ([facility] st Contact Info) Description 09/30/2024 Telephone [facility] MEDICINE 230 [place] [address] Pascual Daly MD 230 [place] [address] Med Refill Social History Tobacco Use Types [...] immediate release tablet To be sent to: [facility] documented in this encounter Plan of Treatment Upcoming Encounters Date Type Department Care Team (Late st Contact Info) Description 04/29/2025 10:00 AM EST Clinical Support [facility] MEDICINE [address] [place] [address] Amanda Fernández RN 505 [place] [address] 08/24/2025 10:15 AM EDT Office Visit [facility] ADULT DENTAL [address] [place] [address] Gabriela Gaitan [address] [place] [address] documented as of this encounter Goals Goal [...] documented as of this encounter Care Teams Coin Box Inspector Relationship Specialty Start Date End Date Pascual Daly MD 230 [place] [address] PCP - General Internal Medicine 02/22/14 Dasia Waters PharmD 230 [place] [address] Pharmacist Internal Medicine 08/16/24 01/16/25 [place] CORDERO 12/18/24 documented as of this encounter
--- OUTSIDE RECORDS SUMMARY | 2025-04-01 04:20 | XMS_ITS | Encounter Summary ---
Author Organization [employer] Address 75 [facility] 7t [place] [address] Care Team Providers Care Boiler Fitter Name Role Phone Pascual Daly MD Primary Care Provide r Fani Heck PharmD Unavailable +1 Dasia Waters PharmD Unavailable [phone] Encounter Details Date Type Department Care Team (Late st Contact Info) Description 09/25/2023 Telephone [facility] MEDICINE 230 [place] [address] Pascual Daly MD 230 [place] [address] Social History Tobacco Use Types Packs/Day Years [...] [facility] [address] [place] [address] Amanda Fernández, AALIYAH 505 [place] [address] 08/24/2025 10:15 AM EDT Office Visit [facility] ADULT DENTAL 230 [place] [address] Kandy, Gabriela 230 [place] [address] documented as of this encounter Goals Goal [...] as of this encounter Care Teams Boiler Fitter Relationship Specialty Start Date End Date Pascual Daly MD [address] [place] [address] PCP - General Internal Medicine 02/22/14 Fani Heck, PharmD 230 [place] [address] Pharmacist Internal Medicine 12/16/22 08/15/24 Dasia Waters, KristiD 230 [place] [address] Pharmacist Internal Medicine 08/16/24 01/16/25 [place] MARCUSA 12/18/24 documented as of this encounter
--- OUTSIDE RECORDS SUMMARY | 2025-04-01 04:20 | XMS_ITS | Encounter Summary ---
Author Organization [employer] Address 75 [facility] 7t [place] [address] Care Team Providers Care Hearing Instrument Specialist Name Role Phone Pascual Daly MD Primary Care Provide r Fani Heck PharmD Unavailable +3 Dasia Waters PharmD Unavailable [phone] Reason for Visit * Reason Comments Med Refill Encounter Details Date Type Department Care Team (Late Contact Info) Description 08/08/2022 Refill [facility] [address] [place] [address] Momo Rizo MD [address] [place] [address] Mild intermittent asthma without complication Social History [...] Description 04/29/2025 10:00 AM EST Clinical Support [facility] MEDICINE [address] [place] [address] Amanda Fernández RN 505 [place] [address] 08/24/2025 10:15 AM EDT Office Visit [facility] ADULT DENTAL 230 [place] [address] Gabriela Gaitan 230 [place] [address] documented as of this encounter Goals Goal [...] documented as of this encounter Care Teams Hearing Instrument Specialist Relationship Specialty Start Date End Date Pascual Daly MD [address] [place] [address] PCP - General Internal Medicine 02/22/14 Fani Heck, PharmD [address] [place] [address] Pharmacist Internal Medicine 12/16/22 08/15/24 Dasia Waters, KristiD [address] [place] [address] Pharmacist Internal Medicine 08/16/24 01/16/25 [place] [facility] 12/18/24 documented as of this encounter
--- OUTSIDE RECORDS SUMMARY | 2025-04-01 04:20 | XMS_ITS | Encounter Summary ---
Author Organization [employer] Address [address] [facility] [address] 7t [place] [address] Care Team Providers Care Stereotyper Helper Name Role Phone Pascual Daly MD Primary Care Provide r Fani Heck PharmD Unavailable +[phone] Dasia Waters PharmD Unavailable [phone] Encounter Details Date Type Department Care Team (Late st Contact Info) Description 03/05/[address] [facility] MEDICINE 230 [place] [address] Jefry Chun Benign hypertension; Type 2 diabetes mellitus without complication, with long-term current use of insulin ([facility]) Social History [...] EST Clinical Support [facility] MEDICINE [address] [place] [address] Amanda Fernández RN 505 [place] [address] 08/24/2025 10:15 AM EDT Office Visit [facility] ADULT DENTAL 230 [place] [address] Gabriela Gaitan 230 [place] [address] documented as of this encounter Goals Goal [...] documented as of this encounter Care Teams Stereotyper Helper Relationship Specialty Start Date End Date Pascual Daly MD [address] [place] [address] PCP - General Internal Medicine 02/22/14 Fani Heck, KrisitD 230 [place] [address] Pharmacist Internal Medicine 12/16/22 08/15/24 Dasia Waters PharmD 230 [place] [address] Pharmacist Internal Medicine 08/16/24 01/16/25 [place] [facility] 12/18/24 documented as of this encounter
--- OUTSIDE RECORDS SUMMARY | 2025-04-01 04:20 | XMS_ITS | Encounter Summary ---
Author Organization [employer] Address 75 [facility] 7t [place] [address] Care Team Providers Care Forest Pathology Teacher Name Role Phone Pascual Daly MD Primary Care Provide r Fani Heck PharmD Unavailable +1 Dasia Waters PharmD Unavailable [phone] Encounter Details Date Type Department Care Team (Late st Contact Info) Description 07/01/2022 Abstract [facility] [address] [place] [address] Pascual Daly MD [address] [place] [address] Social History Tobacco Use Types Packs/Day Years [...] Support [facility] MEDICINE [address] [place] [address] Amanda Fernández, RN 505 [place] [address] 08/24/2025 10:15 AM EDT Office Visit [facility] ADULT DENTAL [address] [place] [address] Kandy, Gabriela [address] [place] [address] documented as of this encounter Goals Goal [...] as of this encounter Care Teams Forest Pathology Teacher Relationship Specialty Start Date End Date Pascual Daly MD [address] [place] [address] PCP - General Internal Medicine 02/22/14 Fani Heck, PharmD [address] [place] [address] Pharmacist Internal Medicine 12/16/22 08/15/24 Dasia Waters, KristiD [address] [place] [address] Pharmacist Internal Medicine 08/16/24 01/16/25 [place] [facility] 12/18/24 documented as of this encounter
--- OUTSIDE RECORDS SUMMARY | 2025-04-01 04:20 | XMS_ITS | Encounter Summary ---
Author Organization [employer] Address 75 [facility] 7t [place] [address] Care Team Providers Care Vault Worker Name Role Phone Pascual Daly MD Primary Care Provide r Fani Heck PharmD Unavailable +1 Dasia Waters PharmD Unavailable [phone] Reason for Visit * Reason Onset Date Comments FYI 12/31/2023 Encounter Details Date Type Department Care Team ([facility] st Contact Info) Description 12/31/[address] [facility] MEDICINE 230 [place], [place] [phone] Pascual Daly MD 230 [place] [address] Social History Tobacco Use Types Packs/Day Years [...] any questions you can contact Franky at [phone]. documented in this encounter Plan of Treatment Upcoming Encounters Date Type Department Care Team (Late st Contact Info) Description 04/29/2025 10:00 AM EST Clinical Support [facility] MEDICINE 230 [place] [address] Amanda Feránndez RN 505 [place] [address] 08/24/2025 10:15 AM EDT Office Visit [facility] ADULT DENTAL 230 [place] [address] Gabriela Gaitan 230 [place] [address] documented as of this encounter Goals Goal [...] documented as of this encounter Care Teams Vault Worker Relationship Specialty Start Date End Date Pascual Daly MD 230 [place] [address] PCP - General Internal Medicine 02/22/14 Fani Heck, PharmD [address] [place] [address] Pharmacist Internal Medicine 12/16/22 08/15/24 Dasia Waters PharmD [address] [place] [address] Pharmacist Internal Medicine 08/16/24 01/16/25 [place] CORDERO 12/18/24 documented as of this encounter
--- OUTSIDE RECORDS SUMMARY | 2025-04-01 04:20 | XMS_ITS | Encounter Summary ---
Author Organization [employer] Address 75 [facility] 7t [place] [address] Care Team Providers Care Lei Maker Name Role Phone Pascual Daly MD Primary Care Provide r Fani Heck PharmD Unavailable +9 Dasia Waters PharmD Unavailable [phone] Reason for Visit * Reason Comments Med Refill Encounter Details Date Type Department Care Team ([facility] st Contact Info) Description 03/04/2023 Refill [facility] MEDICINE 230 [place] [address] Pascual Daly MD 230 [place] [address] Type 2 diabetes mellitus without complication, with long-term current use of insulin ([facility]) Social History Tobacco Use Types Packs/Day Years [...] Description 04/29/2025 10:00 AM EST Clinical Support [facility] MEDICINE 230 [place] [address] Amanda Fernández RN 505 [place] [address] 08/24/2025 10:15 AM EDT Office Visit [facility] ADULT DENTAL 230 [place] [address] Gabriela Gaitan 230 [place] [address] documented as of this encounter Goals Goal [...] documented as of this encounter Care Teams Lei Maker Relationship Specialty Start Date End Date Pascual Daly MD [address] [place] [address] PCP - General Internal Medicine 02/22/14 Fani Heck, KristiD [address] [place] [address] Pharmacist Internal Medicine 12/16/22 08/15/24 Daisa Waters PharmD [address] [place] [address] Pharmacist Internal Medicine 08/16/24 01/16/25 [place] A 12/18/24 documented as of this encounter
--- OUTSIDE RECORDS SUMMARY | 2025-04-01 04:20 | XMS_ITS | Encounter Summary ---
Author Organization [employer] Address 75 [facility] 7t [place] [address] Care Team Providers Care Traditional Maori Health Practitioner Name Role Phone Pascual Daly MD Primary Care Provide r Fani Heck PharmD Unavailable +2 Dasia Waters PharmD Unavailable [phone] Reason for Visit * Reason Comments Med Refill Encounter Details Date Type Department Care Team (Late st Contact Info) Description 07/20/2023 Refill [facility] MEDICINE 230 [place] [address] Titi Gray FNP Major depressive disorder with [...] Description 04/29/2025 10:00 AM EST Clinical Support [facility] MEDICINE [address] [place] [address] Amanda Fernández RN 505 [place] [address] 08/24/2025 10:15 AM EDT Office Visit [facility] ADULT DENTAL 230 [place] [address] Primo Gaitanaris 230 [place] [address] documented as of this encounter Goals Goal [...] documented as of this encounter Care Teams Traditional Maori Health Practitioner Relationship Specialty Start Date End Date Pascual Daly MD 230 [place] [address] PCP - General Internal Medicine 02/22/14 Fani Heck, PharmD 230 [place] [address] Pharmacist Internal Medicine 12/16/22 08/15/24 Dasia Waters, KristiD 230 [place] [address] Pharmacist Internal Medicine 08/16/24 01/16/25 [place] MARCUSA 12/18/24 documented as of this encounter
--- OUTSIDE RECORDS SUMMARY | 2025-04-01 04:20 | XMS_ITS | Encounter Summary ---
Author Organization [employer] Address 75 [facility] 7t [place] [address] Care Team Providers Care Manager Culinary Name Role Phone Pascual Daly MD Primary Care Provide r Fani Heck PharmD Unavailable +5 Dasia Waters PharmD Unavailable [phone] Reason for Visit * Reason Onset Date Comments Med Refill 01/13/2024 Encounter Details Date Type Department Care Team ([facility] st Contact Info) Description 01/13/2024 Telephone [facility] MEDICINE [address] [place], [place] [phone] Pascual Daly MD 230 [place] [address] Med Refill Social History Tobacco Use Types [...] release tablet To be sent to: [facility] - [place], [place] - [address] [place] [address] documented in this encounter Plan of Treatment Upcoming Encounters Date Type Department Care Team ([facility] st Contact Info) Description 04/29/2025 10:00 AM EST Clinical Support [facility] MEDICINE [address] [place] [address] Amanda Fernández RN 505 [place] [address] 08/24/2025 10:15 AM EDT Office Visit [facility] ADULT DENTAL [address] [place] [address] Gabriela Gaitan 230 [place] [address] documented as of this encounter Goals Goal [...] as of this encounter Care Teams Manager Culinary Relationship Specialty Start Date End Date Pascual Daly MD 230 [place] [address] PCP - General Internal Medicine 02/22/14 Fani Heck, PharmD 230 [place] [address] Pharmacist Internal Medicine 12/16/22 08/15/24 Dasia Waters PharmD 230 [place] [address] Pharmacist Internal Medicine 08/16/24 01/16/25 [place] [facility] 12/18/24 documented as of this encounter
--- OUTSIDE RECORDS SUMMARY | 2025-04-01 04:20 | XMS_ITS | Encounter Summary ---
Author Organization [employer] Address 75 [facility] 7t [place] [address] Care Team Providers Care Product Safety Head Name Role Phone Pascual Daly MD Primary Care Provide r Fani Heck PharmD Unavailable + Dasia Waters PharmD Unavailable [phone] Reason for Visit * Reason Comments Med Refill Encounter Details Date Type Department Care Team ([facility] st Contact Info) Description 01/14/2024 Refill [facility] [address] [place] [address] Pascual Daly MD 230 [place], [place] [phone] Fibromyalgia Social History Tobacco Use Types Packs/Day [...] 04/29/2025 10:00 AM EST Clinical Support [facility] MEDICINE 230 [place] [address] Amanda Fernández RN 505 [place] [address] 08/24/2025 10:15 AM EDT Office Visit [facility] ADULT DENTAL 230 [place] [address] Kandy, Gabriela [address] [place] [address] documented as of this encounter Goals Goal [...] documented as of this encounter Care Teams Product Safety Head Relationship Specialty Start Date End Date Pascual Daly MD 230 [place] [address] PCP - General Internal Medicine 02/22/14 Fani Heck, KristiD 230 [place] [address] Pharmacist Internal Medicine 12/16/22 08/15/24 Dasia Waters PharmD 230 [place] [address] Pharmacist Internal Medicine 08/16/24 01/16/25 [place] A 12/18/24 documented as of this encounter
--- OUTSIDE RECORDS SUMMARY | 2025-04-01 04:20 | XMS_ITS | Encounter Summary ---
Author Organization [employer] Address 75 [facility] 7t [place] [address] Care Team Providers Care Probation Officer Name Role Phone Pascual Daly MD Primary Care Provide r Dasia Waters PharmD Unavailable [phone] Reason for Visit * Reason Onset Date Comments Med Refill 08/31/2024 Encounter Details Date Type Department Care Team ([facility] st Contact Info) Description 08/31/2024 Telephone [facility] MEDICINE 230 [place] [address] Pascual Daly MD 230 [place] [address] Med Refill Social History Tobacco Use Types [...] immediate release tablet To be sent to: [facility] documented in this encounter Plan of Treatment Upcoming Encounters Date Type Department Care Team (Late st Contact Info) Description 04/29/2025 10:00 AM EST Clinical Support [facility] MEDICINE [address] [place] [address] Amanda Fernández RN 505 [place] [address] 08/24/2025 10:15 AM EDT Office Visit [facility] ADULT DENTAL [address] [place] [address] Gabriela Gaitan [address] [place] [address] documented as of this encounter Goals Goal [...] documented as of this encounter Care Teams Probation Officer Relationship Specialty Start Date End Date Pascual Daly MD 230 [place] [address] PCP - General Internal Medicine 02/22/14 Dasia Waters PharmD 230 [place] [address] Pharmacist Internal Medicine 08/16/24 01/16/25 [place] CORDERO 12/18/24 documented as of this encounter
--- OUTSIDE RECORDS SUMMARY | 2025-04-01 04:20 | XMS_ITS | Encounter Summary ---
Author Organization [employer] Address 75 [facility] 7t [place] [address] Care Team Providers Care Engineer Specialist Name Role Phone Pascual Daly MD Primary Care Provide r Fani Heck PharmD Unavailable [phone] Dasia Waters PharmD Unavailable [phone] Encounter Details Date Type Department Care Team (Late Contact Info) Description 08/29/2022 Abstract [facility] MEDICINE [address] [place] [address] Pascual Daly MD 230 [place] [address] Social History Tobacco Use Types Packs/Day Years [...] 04/29/2025 10:00 AM EST Clinical Support [facility] MEDICINE [address] [place] [address] Amanda Fernández RN 505 [place] [address] 08/24/2025 10:15 AM EDT Office Visit [facility] ADULT DENTAL [address] [place] [address] Primo Gaitanaris [address] [place] [address] documented as of this encounter Goals Goal [...] as of this encounter Care Teams Engineer Specialist Relationship Specialty Start Date End Date Pascual Daly MD [address] [place] [address] PCP - General Internal Medicine 02/22/14 Fani Heck, KristiD [address] [place] [address] Pharmacist Internal Medicine 12/16/22 08/15/24 Dasia Waters PharmD 230 [facility] [place] [address] Pharmacist Internal Medicine 08/16/24 01/16/25 [place] CORDERO 12/18/24 documented as of this encounter
--- OUTSIDE RECORDS SUMMARY | 2025-04-01 04:20 | XMS_ITS | Encounter Summary ---
Author Organization [employer] Address [address] [facility] [address] [place] [address] Care Team Providers Care Philosophy Faculty Member Name Role Phone Pascual Daly MD Primary Care Provide r Fani Heck PharmD Unavailable [phone] Dasia Waters PharmD Unavailable [phone] Encounter Details Date Type Department Care Team (Late st Contact Info) Description 09/25/2023 Telephone [facility] MEDICINE [address] [place] [address] Pascual Daly MD [address] [place] [address] Social History Tobacco Use Types Packs/Day Years [...] 10:00 AM EST Clinical Support [facility] MEDICINE [address] [place] [phone] Amanda Fernández RN [address] [place] [address] 08/24/2025 10:15 AM EDT Office Visit [facility] ADULT DENTAL [address] [place] [address] Kandy, Gabriela [address] [place] [address] documented as of this encounter Goals Goal [...] documented as of this encounter Care Teams Philosophy Faculty Member Relationship Specialty Start Date End Date Pascual Daly MD [address] [place] [id number] PCP - General Internal Medicine 11/4/14 Fani Heck, KristiD [address] [place] [address] Pharmacist Internal Medicine 12/16/22 08/15/24 Dasia Waters PharmD [address] [place] [address] Pharmacist Internal Medicine 08/16/24 01/16/25 Ferdinand A 12/18/24 documented as of this encounter
--- OUTSIDE RECORDS SUMMARY | 2025-04-01 04:20 | XMS_ITS | Data Portability ---
Author Organization [facility], Main Office Address [address] [facility] [facility] [address], [address] [place] [address] Care Team Providers Care Contract Project Manager Name Role Phone MARII MASSEY Primary Care Provider [facility] - 2ND FLOOR OTHER Assessment No assessment recorded. Plan of Treatment Reminders Order Date Submit Date Provider Last Modified By Organization Details Last Modified Time Details Appointments None recorded. Lab None recorded. Referral None recorded. Procedures None recorded. Surgeries None recorded. Imaging None recorded. Medication Orders oxycodone 5 mg tablet 2023 024 [facility] , [address] [place] [address], [address], 4 21:23:28 oxycodone 5 mg tablet 2023 024 [facility] , [address] [place] [address], [address], 4 13:28:18 Patient TargetsNo targets recorded. Patient InstructionsNo instructions recorded. Reason for Referral None Reported. 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 4 15:49:21 Hypertensive disorder 05073234 Active 2023 Dori Pena NP [address], [address], [place], [address], [facility] 4 15:49:57 Gastroesophage al reflux disease 234456811 Active 2023 Doir Pena NP [address], [address], [place], [address], [facility] 4 15:51:24 Rheumatoid arthritis 69077848 Active 2023 Dori Pena NP [address], [address], [place], [address], [facility] 4 15:51:29 Mixed anxiety and depressive disorder 394405966 Active 2023 Dori Pena NP [address], [address], [place], [address], [facility] 4 15:51:45 Obesity 360807396 Active 2023 Dori Pena NP [address], [place], [address], [facility] 4 15:51:51 Closed flail chest 560071018 Active 2023 Dori Pena NP [address], [place], [address], [facility] 4 15:52:35 Asthenia 52932946 Active 2023 Dori Pena NP [address], [address], [place], [address], [facility] 4 15:52:46 Irritable bowel syndrome 69697626 Active 2023 Dori Pena NP [address], [place], [address], [facility] 4 16:06:46 Recurrent falls 526611531 Active 2023 Dori Pena NP [address], [address], [place], [address], [facility] 4 16:38:03 Problem Notes None recorded. Procedures Surgical History Date Name Laterality Status Provider Name and Address Organization Details Recorded Time bypass gastroenterostomy completed Dori Pena NP [address] [facility], [address], [place], [address], [facility] 09/17/2023 15:40:41 Laparoscopic cholecystectomy completed Dori Pena NP [address] [facility], [address], [place], [address], [facility] 09/17/2023 15:41:25 fixed suspension procedure of urinary bladder neck completed Dori Pena NP [address] [facility], [address], [place], [address], [facility] 09/17/2023 15:42:01 Appendectomy completed Dori Pena NP [address] [facility], [address], [place], [address], [facility] 09/17/2023 15:42:11 bilateral cataract surgery completed Dori Pena NP [address] [facility], [address], [place], [address], [facility] 09/17/2023 15:42:26 Imaging Results None recorded. Procedure Notes None recorded. Medical Equipment None Reported. Allergies Allergen ID Allergen Name Allergen Category Reaction Reaction Severity Criticality Documentation Date Start Date Code Code System Note Provider Name and Address Organization Details Recorded Time 53821 celecoxib medicatio n other Not available unabletoasse 09/17/2023 71163 7 RxNorm unkno wn Dori Pena NP [address] [facility], [address], [place], [address], [facility] 4 15:37:14 27090 lorazepam medicatio n other Not available unabletoasse 09/17/2023 6470 RxNorm unkno wn Dori Pena NP [address] [facility], [address], [place], [address], [facility] 4 15:37:29 24352 tramadol medicatio n other Not available unabletoasse 09/17/2023 19095 RxNorm unkno wn Dori Pena NP [address] [facility], [address], [place], [address], [facility] 4 15:37:42 05907 zolpidem medicatio n other Not available unabletoasse 09/17/2023 06954 RxNorm unkno wn Dori Pena NP [address] [facility], [address], [place], [address], [facility] 4 15:37:56 Medications Name Sig Start [...] Address Organization Details Last Updated DateTime 4 24804.7 8 g 98 /min 18 /min 97.8 [degF] 94 % 150/77 mm[Hg] Dori Pena NP [address] [facility], [address], [place], [address], [facility] 4 10:49:41 Date Recorded Body weight Heart rate Respiratory rate Body temperature Oxygen saturation Systolic And Diastolic Provider Name and Address Organization Details Last Updated DateTime 4 19901.7 8 g 83 /min 18 /min 97 [degF] 98 % 148/74 mm[Hg] Dori Pena NP [address] [facility], [address], [place], [address], [facility] 4 13:29:12 Date Recorded Body weight Heart rate Respiratory rate Body temperature Oxygen saturation Systolic And Diastolic Provider Name and Address Organization Details Last Updated DateTime 4 35338.7 8 g 76 /min 18 /min 97.8 [degF] 97 % 128/78 mm[Hg] Dori Pena NP [address] [facility], [address], [place], [address], [facility] 4 12:05:35 Date Recorded Body weight Heart rate Respiratory rate Body temperature Oxygen saturation Systolic And Diastolic Provider Name and Address Organization Details Last Updated DateTime 4 47208 g 80 /min 18 /min 98 [degF] 95 % 111/60 mm[Hg] Dori Pena NP [address] [facility], [address], [place], [address], [facility] 4 11:40:36 Date Recorded Body weight Heart rate Respiratory rate Body temperature Oxygen saturation Systolic And Diastolic Provider Name and Address Organization Details Last Updated DateTime 4 54529 g 74 /min 18 /min 98.4 [degF] 95 % 124/68 mm[Hg] Dori Pena NP [address] [facility], [address], [place], [address], [facility] 4 13:12:09 Social History Question Answer Notes LastModified by Organizat ion Details LastModified Time Tobacco Smoking Status Never Smoker Dori Pena NP [address] [facility], [address], [place], [address], [facility] 09/17/2023 15:39:38 Do You Have An [...] (RSV) vaccine, unspecified 4 completed Radha Jerman [facility] 09/19/2023 16:11:12 Tdap 4 completed Radha Jerman [facility] 09/19/2023 16:11:26 Td(adult) unspecified formulation 3 completed Radha Jerman [facility] 09/19/2023 16:11:43 Td(adult) unspecified formulation 3 completed Radha King [facility] 09/19/2023 16:11:51 Pneumococcal conjugate PCV 13 6 completed Radha King [facility] 09/19/2023 16:12:53 Pneumococcal conjugate PCV20, polysaccharide ECG074 conjugate, adjuvant, PF 4 completed Radha Jerman [facility] 09/19/2023 16:13:07 pneumococcal polysaccharide PPV23 1 completed Radha Jerman [facility] 09/19/2023 16:13:22 pneumococcal polysaccharide PPV23 4 completed Radha Jerman [facility] 09/19/2023 16:13:31 influenza, unspecified formulation 2 completed Radha Jerman [facility] 09/19/2023 16:13:47 influenza, unspecified formulation 3 completed Radha Jerman [facility] 09/19/2023 16:13:55 MMR 8 completed Radha Jerman [facility] 09/19/2023 16:14:21 SARS-COV-2 (COVID-19) vaccine, UNSPECIFIED 1 completed Radha Jerman [facility] 09/19/2023 16:15:58 SARS-COV-2 (COVID-19) vaccine, UNSPECIFIED 1 completed Radha [facility] 09/19/2023 16:16:13 SARS-COV-2 (COVID-19) vaccine, UNSPECIFIED 1 completed Ardha [facility] 09/19/2023 16:16:27 SARS-COV-2 (COVID-19) vaccine, UNSPECIFIED 2 completed Radha [facility] 09/19/2023 16:17:15 SARS-COV-2 (COVID-19) vaccine, UNSPECIFIED 2 completed Radha [facility] 09/19/2023 16:21:38 zoster, unspecified formulation 5 completed Radha [facility] 09/19/2023 16:23:04 zoster, unspecified formulation 9 completed Radha [facility] 09/19/2023 16:23:18 zoster, unspecified formulation 9 [facility] 09/19/2023 16:25:18 Past Encounters Encounter ID Performer Location Encounter Start Date Encounter Closed Date Diagnosis/Indication Diagnosis SNOMED-CT Code Diagnosis ICD10 Code Diagnosis IMO Codes Diagnosis Note [id number] Dori Pena NP [address] [address] 09/17/2023 15:22:09 09/23/2023 14:50:24 Closed flail chest 309837430 S22.5XXD with multiple rib fractures and clavicular [...] If stable no further workup needed. Asthenia 33692886 R53.1 with notable weakness due to injuryPT OT eval and treatsuppo rtive caremonito r Type 1 frank betes mellitus 14094067 E10.9 tresiba 30 unit sc qhsinsulin 2-14 SSI sc qidhsmonit or BS and adjust as needed Hypertensive disorder 38 679947 I10 not on meds for thisamlodi pine 10 mg po dailylosar zaragoza 100 mg po dailymonit or bp/vitals 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 461590 E06.3 levothyrox ine 112 mcg dailymonit or tsh as needed Gastroesop hageal reflux disease 341503001 K21.9 esomeprazo le 40 mg o daily Obesity 828647316 E66.9 bay stocker to consultsup portive careportio n controlmon itor weight Mixed anxi ety and depressive disorder 414864816 F41.8 aripiprazo le 20 mg dailyvenla faxine 150 mg po dailyprazo sin 6 mg po qhsmelaton in 3 mg po qhshydroxy zine 10 mg po q 8 hours prn anxietyclo nazepam 0.5 mg po q 8 hours prn anxietycar vedilol 6.25 mg po bidmonitor Rheumatoid arthritis 698 71772 M06.9 enbrel 50 mg sc q 7dayscalci um citrate 400 mg po bidmonitor for reliefsee pain management above with flail chest Irritable bowel syndrome 83837171 K58.9 ? IBSlinzess 290 mcg q ammonitor Deficiency anemias 76998 3007 D53.9 folic acidvit b83ttpdaol Coronary arteriosclerosis 21927989 I25.10 hx of MIatorvast atin 20 mg po dailyclopi dogrel 75 mg po q amsee above htn medsmonito r Recurrent falls 20111616 2 R29.6 reports history of falls with loss prevention investigator at home to help her and balance issuesrepo rts more than 5 falls/year supportive caremonito r [id number] JESSICA HINDS NP [place] [id number] [place], [place] [address] 09/18/2023 13:29:08 09/23/2023 15:13:15 Closed flail chest 417361191 S22.5XXD with multiple rib fractures and clavicular [...] If stable no further workup needed. Asthenia 34751036 R53.1 with notable weakness due to injuryPT OT eval and treatsuppo rtive caremonito r Type 1 frank betes mellitus 75313450 E10.9 A1C 8.8%Contin eu:tresiba 30 unit sc qhsinsulin 2-14 SSI sc qidmonitor BS and adjust as needed Hypertensive disorder 38 205940 I10 amlodipine 10 mg po dailylosar zaragoza 100 mg po dailycoreg 6.25 mg bidmonitor bp/vitals 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 826006 E06.3 levothyrox ine 112 mcg dailymonit or tsh as needed Gastroesop hageal reflux disease 626736281 K21.9 esomeprazo le 40 mg o daily Deficiency anemias 41713 3007 D53.9 folic acidvit [id number] Obesity 332692055 E66.9 bay stocker to consultsup [facility] n controlmon itor weight Mixed anxi ety and depressive disorder 246318886 F41.8 aripiprazo le 20 mg dailyvenla faxine 150 mg po dailyprazo sin 6 mg po qhsmelaton in 3 mg po qhshydroxy zine 10 mg po q 8 hours prn anxietyclo nazepam 0.5 mg po q 8 hours prn anxietymon itor Rheumatoid arthritis 698 46582 M06.9 enbrel 50 mg sc q 7dayscalci um citrate 400 mg po bidmonitor for reliefsee pain management above with flail chest Irritable bowel syndrome 64113115 K58.9 ? IBSlinzess 290 mcg q ammonitor Coronary arteriosclerosis 63098628 I25.10 hx of MIatorvast atin 20 mg po dailyclopi dogrel 75 mg po q amsee above htn medsmonito r Recurrent falls 24296257 2 R29.6 reports history of falls with loss prevention investigator at home to help her and balance issuesrepo rts more than 5 falls/year supportive caremonito r [id number] [facility] [address] 09/22/2023 14:27:57 09/29/2023 19:16:34 Closed flail chest [id number] S22.5XXD with multiple rib fractures and clavicular [...] If stable no further workup needed. Asthenia 49896779 R53.1 with notable weakness due to injuryPT OT eval and treatsuppo rtive caremonito r Type 1 frank betes mellitus 75988994 E10.9 BS 81-252 pymztxL5A 8.8%contin ue:tresiba 30 unit sc qhsinsulin 2-14 SSI sc qidmonitor BS and adjust as needed Hypertensive disorder 38 675894 I10 improving lately, boderline highcontam lodipine 10 mg po dailylosar zaragoza 100 mg po dailycoreg 6.25 mg bidmonitor bp/vitals 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 641549 E06.3 contlevoth yroxine 112 mcg dailymonit or tsh as needed Gastroesop hageal reflux disease 232520368 K21.9 esomeprazo le 40 mg o daily Deficiency anemias 42174 3007 D53.9 folic acidvit f93igmtzhk Obesity 130991259 E66.9 [facility] stock[facility] n controlmon itor weight Mixed anxi ety and depressive disorder 642426951 F41.8 contaripip razole 20 mg dailyvenla faxine 150 mg po dailyprazo sin 6 mg po qhsmelaton in 3 mg po qhshydroxy zine 10 mg po q 8 hours prn anxietyclo nazepam 0.5 mg po q 8 hours prn anxietymon itor Rheumatoid arthritis 698 30746 M06.9 enbrel 50 mg sc q 7dayscalci um citrate 400 mg po bidmonitor for reliefsee pain management above with flail chest Irritable bowel syndrome 23727935 K58.9 ? IBSlinzess 290 mcg q ammonitor Coronary arteriosclerosis 42169531 I25.10 hx of MIatorvast atin 20 mg po dailyclopi dogrel 75 mg po q amsee above htn medsmonito r Recurrent falls 59280644 2 R29.6 reports history of falls with loss prevention investigator at home to help her and balance issuesrepo rts more than 5 falls/year supportive caremonito r Acute cystitis 77118025 N30.00 reports dysuria and occassiona l incontinen ce latelyurin e culture returned showing > 100,000 klebsiella pneumo ssp and started on ceftriaxon e 1gram IM and cefpodoxim e 200 mg po bid x 7 days with probiotic by on provider over the weekend.mo nitor [id number] Jonel Alamo MD [address] [address] 09/23/2023 11:01:43 09/29/2023 19:25:59 Closed fracture of multiple left ribs 7433500408 1267989 S22.42XG see HPIleft rib fxs 2-6 with concern for flail chest , with clavicular fxeval by surgery with no interventi on indicatedm onitor respirator y statusutil ize incentive spirometer monitor for pain controlupd ate surgery with concerns Asthenia 41376475 R53.1 PT OT eval and treatmonit or need for increased support in community Type 1 frank betes mellitus 64315629 E10.9 tresiba 30 units qdSS insulinmon itor glucose and need to titrate Hypertensive disorder 38 751984 I10 norvasc 10 mg qdcoreg 6.25 mg bidlosarta n 100 mg qdcurrentl y elevatedmo nitor need for increased control 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 397743 E06.3 hx of added to PMHmaintai priscilla onsynthroi d 112 mcg qdmonitor tsh prn Gastroesop hageal reflux disease 277861611 K21.9 nexium 40 mg qd continuedm onitor for effect Obesity 922856047 E66.09 dietary eval in patient with baseline DM Mixed anxi ety and depressive disorder 565270404 F41.8 carrying dx requiring multiple medication swill continue out patient medication s includinga bility and ativanmoni tor moodpsych eval prn Rheumatoid arthritis 698 04442 M06.9 remains onenbrel 50 mg q friday Irritable bowel syndrome 19881636 K58.9 ? IBSlinzess 290 mcg q ammonitor Coronary arteriosclerosis 22108653 I25.10 hx of MIatorvast atin 20 mg po dailyclopi dogrel 75 mg po q amsee above htn medsmonito r Recurrent falls 23391891 2 R29.6 reports history of falls with loss prevention investigator at home to help her and balance issuesrepo rts more than 5 falls/year supportive caremonito r Solitary n odule of lung 990762016 R91.1 question right 4 mm upper lobe nodulecons ider repeat scan in 6-12 months Primary insomnia 5299029 F51.01 continue melatoninm onitor need to titrate Abnormal weight loss 267 871460 R63.4 weight dropped > 12 lbs in a few days from admitappea rs to be error in initial intake weightwill monitor Acute cystitis 70679169 N30.00 now on cefpodoxim e to complete coursemoni tor for recurrent disease [id number] Dori Pena NP [facility] [address] [address] 09/24/2023 09:21:20 09/29/2023 19:39:42 Closed fracture of multiple left ribs 0487355019 1089981 S22.42XG with multiple rib fractures and clavicular [...] in am off pmadjust as needed. Asthenia 01298408 R53.1 PT OT eval and treatmonit or need for increased support in community Type 1 frank betes mellitus 33943149 E10.9 BS controlled conttresib a 30 units qdSS insulinmon itor glucose and need to titrate Hypertensive disorder 38 999729 I10 stable on below regimennor vasc 10 mg qdcoreg 6.25 mg bidlosarta n 100 mg qdcurrentl y elevatedmo nitor need for increased control 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 182972 E06.3 hx of added to PMHmaintai priscilla onsynthroi d 112 mcg qdmonitor tsh prn Gastroesop hageal reflux disease 292533369 K21.9 nexium 40 mg qd continuedm onitor for effect Obesity 075510124 E66.09 dietary eval in patient with baseline DM Rheumatoid arthritis 698 40166 M06.9 remains onenbrel 50 mg q brittney Irritable bowel syndrome 52789402 K58.9 ? IBSlinzess 290 mcg q ammonitor Coronary arteriosclerosis 65161640 I25.10 hx of MIatorvast atin 20 mg po dailyclopi dogrel 75 mg po q amsee above htn medsmonito r Recurrent falls 59642908 2 R29.6 reports history of falls with loss prevention investigator at home to help her and balance issuesrepo rts more than 5 falls/year supportive caremonito r Primary insomnia 1056492 F51.01 continueme latoninmon itor need to titrate Abnormal weight loss 267 012283 R63.4 weight dropped > 12 lbs in a few days from admitappea rs to be error in initial intake weight6/5 reweigh pt todaywill monitor Acute cystitis 89962906 N30.00 now on cefpodoxim e to complete courseaysm ptomaticmo nitor for recurrent disease [id number] Dori Pena NP [address] [address] 09/29/2023 10:39:23 10/03/2023 11:24:38 Closed fracture of multiple left ribs 9834424189 6804743 S22.42XG with multiple rib fractures and clavicular [...] to left shoulderad just as needed. Asthenia 84440894 R53.1 PT OT eval and treatmonit or need for increased support in community Type 1 frank betes mellitus 95372816 E10.9 BS controlled conttresib a 30 units qdSS insulinmon itor glucose and need to titrate Hypertensive disorder 38 536252 I10 stable on below regimen with slightly high bp likley related to pain, monitorcon tnorvasc 10 mg qdcoreg 6.25 mg bidlosarta n 100 mg qdcurrentl y elevatedmo nitor need for increased control 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 408792 E06.3 hx of added to PMHmaintai priscilla onsynthroi d 112 mcg qdmonitor tsh prn Gastroesop hageal reflux disease 448599059 K21.9 contnexium 40 mg qdmonitor for effect Obesity 649170328 E66.09 dietary evalbaseli ne DMweight today please Rheumatoid arthritis 698 04027 M06.9 remains onenbrel 50 mg q friday Irritable bowel syndrome 73017601 K58.9 ? IBSlinzess 290 mcg q ammonitor Coronary arteriosclerosis 21302961 I25.10 hx of MIatorvast atin 20 mg po dailyclopi dogrel 75 mg po q amsee above htn medsmonito r Recurrent falls 39919337 2 R29.6 reports history of falls with loss prevention investigator at home to help her and balance issuesrepo rts more than 5 falls/year supportive caremonito r Primary insomnia 3176331 F51.01 continueme latoninmon itor need to titrate Abnormal weight loss 267 596613 R63.4 weight dropped > 12 lbs in a few days from admitappea rs to be error in initial intake weight6/10 reweigh pt todaywill monitor Acute cystitis 72735579 N30.00 resolved cefpodoxim e to complete courseaysm ptomaticmo nitor for recurrent disease Mixed anxi ety and depressive disorder 354882531 F41.8 contaripip razole 20 mg dailyvenla faxine 150 mg po dailyprazo sin 6 mg po qhsmelaton in 3 mg po qhshydroxy zine 10 mg po q 8 hours prn anxiety6/1 0 renew clonazepam 0.5 mg po q 8 hours prn anxietymon itor [id number] Dori Pena NP [address] [address] 10/02/2023 13:28:32 10/07/2023 10:08:18 Hypertensive disorder 12430663 I10 stable on below regimen as it comes down to 120s systolic post medication contnorvas c 10 mg qdcoreg 6.25 mg bidlosarta n 100 mg qdmonitor need for increased control Closed fra cture of multiple left ribs 1325101153 7076138 S22.42XG with left rib fxs 2-6 with [...] OT eval and txadjust as needed. Asthenia 42991196 R53.1 PT OT eval and treatmonit or need for increased support in community Type 1 frank betes mellitus 89843116 E10.9 BS controlled glucernaco nttresiba 30 units qdSS insulinmon itor glucose and need to titrate Gastroesop hageal reflux disease 677297179 K21.9 contnexium 40 mg qdmonitor for effect Rheumatoid arthritis 698 76450 M06.9 remains onenbrel 50 mg q brittney Irritable bowel syndrome 73354850 K58.9 ? IBSlinzess 290 mcg q ammonitor Coronary arteriosclerosis 33088354 I25.10 hx of MIcoreg 6.25 mg po bidatorvas tatin 20 mg po dailyclopi dogrel 75 mg po q amsee above htn medsmonito r Recurrent falls 56536824 2 R29.6 reports history of falls with loss prevention investigator at home to help her and balance issuesrepo rts more than 5 falls/year supportive care and therapy here for balance, strengthen ing, gait, mobility, endurancem onitor Abnormal weight loss 267 035589 R63.4 weight dropped > 12 lbs in a few days from admitappea rs to be error in initial intake weight09/28 reweigh pt today10/01 reweight pt today, no weight since 09/21will monitor Mixed anxi ety and depressive disorder 014702808 F41.8 contaripip razole 20 mg dailyvenla faxine 150 mg po dailyprazo sin 6 mg po qhsmelaton in 3 mg po qhshydroxy zine 10 mg po q 8 hours prn anxiety09/19 0 renew clonazepam 0.5 mg po q 8 hours prn anxiety x 14 days10/01 cont as abovemonit or [id number] [facility] [address] 10/06/2023 12:02:36 10/09/2023 09:34:42 Closed fracture of multiple left ribs 4897139085 7377052 S22.42XG with left rib fxs 2-6 with [...] txadjust as needed. Abnormal weight loss 267 446922 R63.4 weight dropped > 12 lbs in a few days from admitappea rs to be error in initial intake weight10/04 160 lbs which is same as 09/22/23will monitor Hypertensive disorder 38 885532 I10 stable on below regimen as it comes down to 120s systolic post medication contnorvas c 10 mg qdcoreg 6.25 mg bidlosarta n 100 mg qdmonitor need for increased control Asthenia 66760597 R53.1 PT OT eval and treatmonit or need for increased support in community Type 1 frank betes mellitus 72917070 E10.9 pt having syrup and gingerale at [...] and need to titrate Rheumatoid arthritis 698 31638 M06.9 remains onenbrel 50 mg q friday Irritable bowel syndrome 76474845 K58.9 with constipati on today, states many days10/05 mon given today, will do supp if no bm by 4 pm10/05 start senna 8.6 mg po daily? IBSlinzess 290 mcg q ammonitor Coronary arteriosclerosis 56358772 I25.10 hx of MIcoreg 6.25 mg po bidatorvas tatin 20 mg po dailyclopi dogrel 75 mg po q amsee above htn medsmonito r Mixed anxi ety and depressive disorder 545304194 F41.8 contaripip razole 20 mg dailyvenla faxine 150 mg po dailyprazo sin 6 mg po qhsmelaton in 3 mg po qhshydroxy zine 10 mg po q 8 hours prn anxiety09/19 0 renew clonazepam 0.5 mg po q 8 hours prn anxiety x 14 days10/01 cont as above10/05 stable today with above planmonito r [id number] Dori Pena NP [address] [address] 10/08/2023 11:40:06 10/15/2023 15:50:32 Type 1 diabetes mellitus 80355534 E10.9 pt having syrup and gingerale at [...] and need to titrate Irritable bowel syndrome 51340679 K58.9 with constipati on resolved with mom on 7 mon given today10/05 start senna 8.6 mg po daily? IBSlinzess 290 mcg q am10/07 having bm regularly nowmonitor Closed fra cture of multiple left ribs [id number] [id number] S22.42XG with left rib fxs 2-6 with [...] txadjust as needed. Abnormal weight loss 267 107184 R63.4 weight dropped > 12 lbs in a few days from admitappea rs to be error in initial intake weight10/04 160 lbs which is same as 09/22/23, ? incorrect admit weight but seems stable nowwill monitor Hypertensive disorder 38 734990 I10 stable on below regimen as it comes down to 120s systolic post medication contnorvas c 10 mg qdcoreg 6.25 mg bidlosarta n 100 mg qdmonitor need for increased control Asthenia 52869722 R53.1 PT OT eval and treatmonit or need for increased support in community Rheumatoid arthritis 698 17504 M06.9 remains onenbrel 50 mg q friday Coronary arteriosclerosis 52503831 I25.10 hx of MIcoreg 6.25 mg po bidatorvas tatin 20 mg po dailyclopi dogrel 75 mg po q amsee above htn medsmonito r Mixed anxi ety and depressive disorder 132759753 F41.8 contaripip razole 20 mg dailyvenla faxine 150 mg po dailyprazo sin 6 mg po qhsmelaton in 3 mg po qhshydroxy zine 10 mg po q 8 hours prn anxiety/ 0 renew clonazepam 0.5 mg po q 8 hours prn anxiety x 14 days10/01 cont as above10/05 stable today with above plan10/07 stable today with above planmonito r Hyperkalemia 33401108 E8 7.5 k of 5.7 on give kayexalate 15 gm today10/08 bmp in ammonitor for additional e lyte abbormalit ies [id number] Dori Pena NP [address] [address] 10/09/2023 13:08:06 10/15/2023 16:27:22 Closed fracture of multiple left ribs [id number] 9590399 S22.42XG resolving with left rib fxs 2-6 [...] prnadjust as needed outpt with pcp Hyperkalemia 93868588 E8 7.5 k of 5.7 on give kayexalate 15 gm on 10/07monito r for additional e lyte abnormalit ies outpt with pcp Type 1 frank betes mellitus 00588409 E10.9 BS slightly high while at rehab with eating sugary foods/drin ksPlan: diet sodas and diet syrup and less sugary choicescon tglucernat resiba 30 units qdSS insulin with meals as per home schedmonit or glucose and need to titrate outpt with pcp outpt Irritable bowel syndrome 72057343 K58.9 with constipati on resolvedse nna 8.6 mg po daily (started at rehab)? IBSlinzess 290 mcg q ammonitor with pcp outpt Abnormal weight loss 267 354846 R63.4 weight dropped > 12 lbs in a few days from admitappea rs to be error in initial intake weight16 160 lbs which is same as 09/22/23, ? incorrect admit weight but seems stable nowmonitor oupt with pcp Hypertensive disorder 38 716587 I10 stable on below regimen as it comes down to 120s systolic post medication contnorvas c 10 mg qdcoreg 6.25 mg bidlosarta n 100 mg qdmonitor need for increased control outpt with pcp Asthenia 04550127 R53.1 PT OT eval and treat outpt prnmonitor need for increased support in community with pcp Rheumatoid arthritis 698 98049 M06.9 remains onenbrel 50 mg q fridaymoni tor outpt with pcp Coronary arteriosclerosis 78566370 I25.10 hx of MIcoreg 6.25 mg po bidatorvas tatin 20 mg po dailyclopi dogrel 75 mg po q amsee above htn medsmonito r outpt wtih pcp 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 contaripip razole 20 mg dailyvenla faxine 150 mg po dailyprazo sin 6 mg po qhsmelaton in 3 mg po qhshydroxy zine 10 mg po q 8 hours prn anxietyclo nazepam 0.5 mg po q 8 hours prn anxietymon itor outpt with pcp Gastroesop hageal reflux disease 338695364 K21.9 contnexium 40 mg qdmonitor for effect outpt with pcp Recurrent falls 52531805 2 R29.6 reports history of falls with loss prevention investigator at home to help her and balance issuesrepo rts more than 5 falls/year supportive care and therapy here for balance, strengthen ing, gait, mobility, endurance outpt rpnmonitor outpt with pcp 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 714193 E06.3 hx of added to PMHmaintai priscilla onsynthroi d 112 mcg qdmonitor tsh prn with pcp Obesity 634007553 E66.09 dietary evalbaseli ne DMweight to be monitored with pcp outpt Primary insomnia 2395773 F51.01 continueme latoninmon itor need to titrate outpt Acute cystitis 57702056 N30.00 resolved cefpodoxim e to complete courseaysm ptomaticmo nitor for recurrent disease outpt with pcp Health Concerns Section Related Observation LastModified by Organization Detai ls LastModified Time None Recorded Concern Status LastModified by Organization Details LastModified Time None Recorded Advance Directives Directive N: Payers Insurance Date Sequence Insurance Name Policy Number Policy Patten Covered Member ID Patten Member ID Guarantor Name 10/15/2023 1 [facility] - DOS ON OR AFTER 2022 - MEDICARE ADVANTAGE [place] (MEDICARE REPLACEMENT/ADV ANTAGE - PPO) Brandie Luevano [id number] Brandie Luevano Notes Date Note Type Note [...] Dori Pena NP [address] [facility], [address], [place], [address], [facility] - [facility] 09/29/2023 11:09:33 10/02/2023 text/html ROS as noted [...] is sitting up in bed with her LAPEL STITCHER visiting. She has her sling in place [...] Dori Pena NP [address] [facility], [address], [place], [address], [employer] 10/02/2023 13:48:50 10/06/2023 text/html ROS as noted in the HPI Pt is seen for an acute rounding visit. Brandie is working here at [facility] and is feeling good and more mobile lately with left sling in place. She continues with therapy and making gains. She was treated for a UTI when she first came to [facility] and denies any urinary symptoms. [...] Dori Pena NP [address] [facility], [address], [place], [address], [employer] [facility] 10/06/2023 12:26:22 10/08/2023 text/html ROS as [...] in a sling for comfort. While at [facility]:She was treated for a UTI when she first came to [facility] and denies any urinary symptoms. [...] Dori Pena NP [address] [facility], [address], [place], [address], [facility] [employer] 10/08/2023 12:05:52 10/09/2023 text/html ROS as noted [...] in a sling for comfort. While at [facility]:She was treated for a UTI when she first came to [facility] and denies any urinary symptoms. [...] Dori Pena NP [address] [facility], [address], [place], [address], [facility] [employer] 10/09/2023 16:50:56 OBGyn Episode No OBEpisode recorded.
--- OUTSIDE RECORDS SUMMARY | 2025-04-01 04:21 | XMS_ITS | Encounter Summary ---
Author Organization [employer] Address [address] [facility] 7t [place] [address] Care Team Providers Care Shrink Pit Operator Name Role Phone Pascual Daly MD Primary Care Provide r Reason for Visit * Reason Onset Date Comments ED expect 03/28/2025 Encounter Details Date Type Department Care Team ([facility] st Contact Info) Description 03/28/2025 Telephone [facility] [address] [place] [address] Pascual Daly MD [address] [place] [address] ED expect Social History Tobacco Use Types [...] 03/28/2025 11:11 AM EST TC placed to [facility] triage. This RN gave Ishmael FLORES verbal report and patient is arriving by private car. documented in this encounter Plan of Treatment Upcoming Encounters Date Type Department Care Team (Late st Contact Info) Description 04/29/2025 10:00 AM EST Clinical Support [facility] [address] [place] [address] Amanda Fernández RN [address] [place] [address] 08/24/2025 10:15 AM EDT Office Visit [facility] [address] [place] [address] Gabriela Gaitan [address] [place] [address] documented as of this encounter Goals Goal [...] documented as of this encounter Care Teams Shrink Pit Operator Relationship Specialty Start Date End Date Pascual Daly MD [address] [place] [address] PCP - General Internal Medicine 02/22/14 Iker CORDERO 12/18/24 documented as of this encounter
--- OUTSIDE RECORDS SUMMARY | 2025-04-01 04:21 | XMS_ITS | Encounter Summary ---
Author Organization [employer] Address [address] [facility] 7t [place] [address] Care Team Providers Care Tunnel Drier Operator Name Role Phone Pascual Daly MD [...] Description 04/29/2025 10:00 AM EST Clinical Support [facility] [address] [place] [address] Amanda Fernández RN [address] [place] [address] 08/24/2025 10:15 AM EDT Office Visit [facility] ADULT DENTAL [address] [place] [address] Gabriela Gaitan [address] [place] [address] documented as of this encounter Goals Goal [...] documented as of this encounter Care Teams Tunnel Drier Operator Relationship Specialty Start Date End Date Pascual Daly MD [address] [place] [address] PCP - General Internal Medicine 02/22/14 Iker MARCUSA 12/18/24 documented as of this encounter
--- OUTSIDE RECORDS SUMMARY | 2025-04-01 04:21 | XMS_ITS | Encounter Summary ---
Author Organization [employer] Address [address] [facility] 7t [place] [address] Care Team Providers Care Journeyman Power Plant Operator Name Role Phone Pascual Daly MD Primary Care Provide r Reason for Visit * Reason Onset Date Comments Med Refill 02/08/2025 Encounter Details Date Type Department Care Team ([facility] st Contact Info) Description 02/08/2025 Telephone [facility] [address] [place] [address] Pascual Daly MD [address] [place] [address] Med Refill Social History Tobacco Use Types [...] immediate release tablet To be sent to: [facility] - [place], [place] - [address] [place] [address] documented in this encounter Plan of Treatment Upcoming Encounters Date Type Department Care Team ([facility] st Contact Info) Description 04/29/2025 10:00 AM EST Clinical Support [facility] [address] [place] [address] Amanda Fernández RN [address] [place] [address] 08/24/2025 10:15 AM EDT Office Visit [facility] [address] [place] [address] Gabriela Gaitan [address] [place] [address] documented as of this encounter Goals Goal [...] documented as of this encounter Care Teams Journeyman Power Plant Operator Relationship Specialty Start Date End Date Pascual Daly MD [address] [place] [address] PCP - General Internal Medicine 02/22/14 Iker Ingrid 12/18/24 documented as of this encounter
--- OUTSIDE RECORDS SUMMARY | 2025-04-01 04:21 | XMS_ITS | Encounter Summary ---
Author Organization [employer] Address [address] [facility] 7t [place] [address] Care Team Providers Care Die Storage Clerk Name Role Phone Pascual Daly MD Primary Care Provide r Fani Heck PharmD Unavailable + Dasia Waters PharmD Unavailable [phone] Encounter Details Date Type Department Care Team (Late st Contact Info) Description 03/13/2022 Abstract [facility] [address] [place] [id number] Provider, MD Bill Social History Tobacco Use [...] Description 04/29/2025 10:00 AM EST Clinical Support [facility] [address] [place] [address] Amanda Fernández RN [address] [place] [address] 08/24/2025 10:15 AM EDT Office Visit [facility] ADULT DENTAL [address] [place] [address] Gabriela Gaitan [address] [place] [address] documented as of this encounter Visit Diagnoses Not on filedocumented in this encounter Care Teams Die Storage Clerk Relationship Specialty Start Date End Date Pascual Daly MD [address] [place] [address] PCP - General Internal Medicine 02/22/14 Fani Heck PharmD [address] [place] [address] Pharmacist Internal Medicine 12/16/22 08/15/24 Dasia Waters PharmD [address] [place] [address] Pharmacist Internal Medicine 08/16/24 01/16/25 Iker MARCUSA 12/18/24 documented as of this encounter
--- OUTSIDE RECORDS SUMMARY | 2025-04-01 04:21 | XMS_ITS | Clinical Summary ---
Author Organization [address] [facility] Address [address] [place] [address] Phone Care Team Providers Care Electromedical Equipment Technician Name Role Phone Pascual Darnell MD Primary Care Provi chio Allergies Active Allergy Reactions Criticality Noted Date Comments Clonazepam 09/02/2024 Naproxen Unknown 07/03/2022 Tramadol Hives,Unknown 11/02/2012 Zolpidem Anxiety,Unknown Low 01/26/2019 Medications Ventolin HFA 90 mcg/actuation inhaler Inhale 2 puffs by mouth. every 4 to 6 hours as needed 5 Active Alcohol Prep Pads pads, medicated See administration instructions. use as directed up to four times daily 5 Active amLODIPine (NORVASC) 10 mg tablet Take 1 tablet (10 mg total) by mouth. 5 Active ARIPiprazole (ABILIFY) 20 mg tablet Take 1 tablet (20 mg total) by mouth daily. 3 Active atorvastatin (LIPITOR) 20 mg tablet Take 1 tablet (20 mg total) by mouth 1 (one) time each day in the morning. 5 Active bisacodyL (DULCOLAX) 5 mg EC tablet Take 2 tablets (10 mg total) by mouth. at bedtime Active blood pressure test kit-large kit USE DIRECTED TO CHECK BLOOD PRESSURE 5 Active blood sugar diagnostic (FreeStyle Lite Strips) test strip TEST BLOOD SUGAR 8 TIMES PER DAY 5 Active FreeStyle [place] Lite monitoring kit TEST BLOOD SUGAR THREE TIMES DAILY IN THE MORNING, AT NOON, AND AT BEDTIME 5 Active blood-glucose sensor (Dexcom G7 Sensor) USE DIRECTED TO TEST BLOOD SUGAR, CHANGE EVERY 10 DAYS 5 Active calcium citrate (CALCITRATE) 950 mg (200 mg elemental calcium) tablet TAKE 2 TABLETS BY MOUTH TWICE DAILY IN THE MORNING AND EVENING Active carvediloL (COREG) 6.25 mg tablet TAKE 1 TABLET BY MOUTH TWICE DAILY IN THE MORNING AND AT BEDTIME 3 Active chlorhexidine (PERIDEX) 0.12 % solution Swish 15 mL morning and night for 1 minute. Spit, do not swallow. Do not eat or drink for 30 minutes following use. 5 Active Vitamin D3 50 mcg (2,000 unit) capsule Take 1 capsule (2,000 Units total) by mouth 1 (one) time each day in the morning. 5 Active clonazePAM (KlonoPIN) 0.5 mg tablet Take 1 tablet (0.5 mg total) by mouth 3 (three) times a day if needed. Active clopidogreL (PLAVIX) 75 mg tablet Take 1 tablet (75 mg total) by mouth. 2 Active cyclobenzaprin e (FLEXERIL) 10 mg tablet Take 1 tablet (10 mg total) by mouth 3 times daily as needed. 5 Active esomeprazole (NexIUM) [address] capsule Take 1 capsule (40 mg total) by mouth. 2 Active fluticasone propionate (FLONASE) 50 mcg/actuation nasal spray Administer 1 spray into each nostril daily. 3 Active folic acid (FOLVITE) 1 mg tablet Take 1 tablet (1,000 mcg total) by mouth 1 (one) time each day in the morning. Active gabapentin (NEURONTIN) 100 mg capsule Take 1 capsule (100 mg total) by mouth 2 times daily. 5 Active Baqsimi 3 mg/actuation nasal spray USE 1 SPRAY (3MG) IN ONE NOSTRIL FOR A PATIENT WITH SEVERE HYPOGLYCEMIA WHO IS NOT RESPONSIVE AND UNABLE SELF-TREAT WITH GLUCOSE. AFTERWARDS TURN ON SIDE. MAY REPEAT IN 15MINUTES IF PATIENT DOES NOT RESPOND. Active hydrOXYzine HCL (ATARAX) 10 mg tablet Take 1 tablet (10 mg total) by mouth every 8 hours as needed. 4 Active Fiasp FlexTouch U-100 Insulin 100 unit/mL (3 mL) injection pen INJECT 2 TO 9 UNITS SUBCUTANEOUSLY FOUR TIMES DAILY DIRECTED 5 Active Tresiba FlexTouch U-100 100 unit/mL (3 mL) injection pen Inject 20 Units under the skin 1 (one) time each day. Active levothyroxine (SYNTHROID, LEVOTHROID) 125 mcg tablet Take 1 tablet (125 mcg total) by mouth 1 (one) time each day in the morning. 5 Active Linzess 145 mcg capsule TAKE 1 CAPSULE BY MOUTH EVERY MORNING. TAKE WITH A FULL GLASS OF WATER Active losartan (COZAAR) 100 mg tablet 5 Active melatonin 3 mg tablet Take 1 tablet (3 mg total) by mouth at bedtime as needed. at bedtime Active naloxone (NARCAN) 4 mg/0.1 mL nasal spray 1 each (4 mg total). 4 Active oxyCODONE (ROXICODONE) 5 mg immediate release tablet Take 1 tablet (5 mg total) by mouth. 5 025 Active Cherelle Pen Needle 32 gauge x needle USE 5 DAILY 5 Active prazosin (MINIPRESS) 2 mg capsule Take 2 capsules (4 mg total) by mouth. at bedtime Active simethicone (MYLICON) 125 mg chewable tablet CHEW 1 TABLET BY MOUTH 2 TO 4 TIMES DAILY NEEDED FOR GAS Active venlafaxine HCl (venlafaxine ER) 37.5 mg 24 hr tablet 5 Active Encounters Date Type Department Care Team Description 03/15/2025 10:15 AM EST Office Visit [facility] [place] [address] [place] [phone] Luciano Smith, DPM Acquired hallux valgus of left foot (Primary Dx); Acquired hallux valgus of right foot; Hammer toe of left foot; Acquired hammer toe of right foot; Dermatophytosis of nail; Pain in toe of right foot; Pain in toe of left foot; Type 1 diabetes mellitus with mononeuropathy (CMS/HCC V24, CMS/HCC V28); Type 1 diabetes mellitus with hypoglycemia without coma (CMS/HCC V24, CMS/HCC V28) from Last 3 Months Social History Tobacco [...] Care Team (Late st Contact Info) Description 06/15/2025 10:30 AM EST Office Visit [facility] - [place] [address] [id number] Luciano Smith, DPM [address] [address] Health Maintenance Due Date Last Done Comments Colorectal Cancer Screening: Colonoscopy 1950 Diabetes: Annual Foot Exam 02/08/1960 Diabetes: Annual Retina Eye Exam 02/08/1960 Falls Risk Assessment 11/21/2023 Medicare Annual Wellness Visit 11/21/2023 Osteoporosis Screening (Bone Density Screening) 11/21/2023 Social Influencers of Health Screening 11/21/2023 Depression Screening 04/21/2024 Diabetes: Annual Urine Albumin-Creatinine Ratio (uACR) 03/15/2025 Diabetes: Blood Sugar Control Test (HGBA1C) 07/07/2025 01/07/2025, 11/24/2024, 08/12/2024 COVID-19 Vaccine ( season) 2025 01/17/2025, 04/18/2022, 09/04/2021, Additional history exists Diabetes: Annual GFR (Glomerular Filtration Rate) 01/07/2026 01/07/2025, 11/24/2024, 08/16/2024 Hypertension/CHF/CAD Annual BMP Blood Test 01/07/2026 01/07/2025, 11/24/2024, 08/16/2024 Cholesterol Screening (Lipid Panel) 08/16/2029 [...] Adult Patients Completed 06/12/2023 Influenza Vaccine Completed 01/17/2025, , 03/11/2023, Additional [...] LAB CHEMISTRY METHOD 11/24/2024 12:29 PM EDT [facility] Mean Bld Glu Estim. 209 mg/dL LAB CHEMISTRY METHOD 11/24/2024 12:29 PM EDT [facility] Blood Venous blood specimen / Unknown Venipuncture / Unknown 11/24/2024 6:16 AM EDT 11/24/2024 10:24 AM EDT Vero Mike MD LAB BLOOD ORDERABLES Final Resul t [facility] [address] [place] [address], * (ABNORMAL) Comprehensive metabolic panel (11/24/2024 6:16 AM EDT) Pathologist [facility] Sodium 138 133 - 145 mmol/L LAB CHEMISTRY METHOD 11/24/2024 11:35 AM [facility] Potassium 4.5 3.5 - 5.5 mmol/L LAB CHEMISTRY METHOD 11/24/2024 11:35 AM [facility] Chloride 104 96 - 110 mmol/L LAB CHEMISTRY METHOD 11/24/2024 11:35 AM T [facility] CO2 28 21 - 32 mmol/L LAB CHEMISTRY METHOD 11/24/2024 11:35 AM [facility] Anion Gap 6 3 - 11 LAB CHEMISTRY METHOD 11/24/2024 11:35 AM [facility] Glucose 77 70 - 100 mg/dL LAB CHEMISTRY METHOD 11/24/2024 11:35 AM [facility] BUN 21 5 - 25 mg/dL LAB CHEMISTRY METHOD 11/24/2024 11:35 AM [facility] Creatinine 0.96 0.50 - 1.10 mg/dL LAB CHEMISTRY METHOD 11/24/2024 11:35 AM [facility] eGFR 62 >=60 mL/min/1. 73m2 LAB CHEMISTRY METHOD 11/24/2024 11:35 AM [facility] Comment:Calculation based on the Chronic Kidney Disease Epidemiology Collaboration (CKD-EPI) equation refit without adjustment for race. BUN/Creatinine Ratio 21.9 LAB CHEMISTRY METHOD 11/24/2024 11:35 AM [facility] Calcium 9.2 8.5 - 10.5 mg/dL LAB CHEMISTRY METHOD 11/24/2024 11:35 AM [facility] AST (SGOT) 18 10 - 42 unit/L LAB CHEMISTRY METHOD 11/24/2024 11:35 AM [facility] ALT (SGPT) 26 10 - 60 unit/L LAB CHEMISTRY METHOD 11/24/2024 11:35 AM [facility] Alkaline Phosphatase 99 42 - 121 unit/L LAB CHEMISTRY METHOD 11/24/2024 11:35 AM [facility] Total Protein 5.6(L) 6.0 - 8.0 g/dL LAB CHEMISTRY METHOD 11/24/2024 11:35 AM [facility] Albumin 3.3 3.2 - 5.0 g/dL LAB CHEMISTRY METHOD 11/24/2024 11:35 AM [facility] Total Bilirubin 0.3 0.0 - 1.4 mg/dL LAB CHEMISTRY METHOD 11/24/2024 11:35 AM [facility] Blood Venous blood specimen / Unknown Venipuncture / Unknown 11/24/2024 6:16 AM EDT 11/24/2024 10:32 AM EDT Vero Mike MD LAB BLOOD ORDERABLES Final Resul t [facility] [address] [place] [address], from Last 3 Months or Most Recently Relevant to Health Maintenance Insurance [employer] Member Subscriber Plan / Payer (Ef fective 2015-Present) Name:Brandie WILLIS Relation to Subscriber:Self Name:Brandie Santana Payer ID:[id number] Group ID:[id number] Type:Not on file Address: [place] [address] [address] [place] [address] Care Teams Electromedical Equipment Technician Relationship Specialty Start Date End Date Pascual Darnell MD [address] [place] [id number] PCP - General Internal Medicine 06/18/24
--- OUTSIDE RECORDS SUMMARY | 2025-04-01 04:21 | XMS_ITS | Encounter Summary ---
Author Organization [employer] Address [address] [facility] 7t [place] [address] Care Team Providers Care Alliances Consultant Name Role Phone Pascual Daly MD Primary Care Provide r Fani Heck PharmD Unavailable [phone] Dasia Waters PharmD Unavailable [phone] Reason for Visit * Reason Comments Med Refill Encounter Details Date Type Department Care Team (Late st Contact Info) Description 10/21/2023 Refill [facility] MED[facility]INE [address] [place] [address] Titi Gray FNP Major depressive disorder with [...] 10:00 AM EST Clinical Support [facility] MEDICINE [address] [place] [address] Amanda Fernández RN [address] [place] [address] 08/24/2025 10:15 AM EDT Office Visit [facility] ADULT DENTAL [address] [place] [address] Primo Gaitanaris [address] [place] [address] documented as of this encounter Goals Goal [...] documented as of this encounter Care Teams Alliances Consultant Relationship Specialty Start Date End Date Pascual Daly MD [address] [place] [address] PCP - General Internal Medicine 02/22/14 Fani Heck, PharmD [address] [place] [address] Pharmacist Internal Medicine 12/16/22 08/15/24 Dasia Waters, KristiD [address] [place] [address] Pharmacist Internal Medicine 08/16/24 01/16/25 Iker MARCUSA 12/18/24 documented as of this encounter
--- OUTSIDE RECORDS SUMMARY | 2025-04-01 04:21 | XMS_ITS | Data Portability ---
Author Organization [employer] [facility] Address [address] [place] [address] Care Team Providers Care Steamship Agent Name Role Phone [facility] PRIMARY [facility] Referring Provider Assessment Encounter Date Assessment Date Assessment LastModified by Organization Details LastModified Time 04/11/2023 04/11/2023 I provided real -time medical direction via phone for this encounter, and was available for additional phone based assistance as needed. I have reviewed and agree with the Assessment and Plan as documented by the Funeral Car Driver. Patient given the opportunity to ask questions. Advised to call for another visit over the weekend if not improving in 2 to 3 days however if develops CP/severe SOB/turning blue/uncontrolle d n/v/d or black/bloody emesis or stool/ AMS/ syncope/ hi fever unresponsive to APAP to call 911- verbalized understanding of instructions [email or web address] Not available 04/12/2023 10:53:05 Plan of Treatment [...] Not available Not available Not available 04/11/2023 [id number] 5 RxNorm Anitha Camacho MD [address] [facility],[address], [place], [address] , [employer] 14:49:47 4127 Celebrex medicatio n Not available Not available Not available 04/11/2023 [id number] 7 Forrest Camacho MD [address] [facility],[address], [place], [address], [facility] 14:49:57 4128 tramadol medicatio n Not available Not available Not available 04/11/2023 [id number] Forrest Camacho MD [address] [facility],[address], [place], [address], [facility] 14:50:04 Medications Name Sig Start Date Stop [...] Available Not Available No t Available FreeStyle Lamar Lite kit USE DIRECTED active Not Available [...] Details Last Updated DateTime 3 97 % 74509.5 36 g 18 /min 97.8 [degF] 88 [...] ICD10 Code Diagnosis IMO Codes Diagnosis Note [id number] Anitha Camacho MD Main - instED [address] [place] [address] 04/11/2023 14:49:23 08/20/2024 13:15:45 Respiratory syncytial virus infection [id number] B97.4 Continue medication s as prescribed ., [...] Name 08/20/2024 1 [facility] - DOS ON OR AFTER 2022 - DUAL ELIGIBLE - SNF OPTIONS AND ONE CARE (MEDICARE REPLACEMENT/ADV ANTAGE - HMO) Brandie Santana [id number] Brandie Santana Notes Date Note Type Note Provider Name and Address Organization Details Recorded Time 04/11/2023 text/html ROS as noted in the HPI HPI: 73 year old, Namibian speaking member, F, with hx of DM, HTN, Asthma, Depression, hx of falls and chronic pain, reporting worsesing Productive cough, shortness of breath with activities and fatigue, worsening head aches, treated at [facility] on 04/10/23 and dx with RSV. Reported has fever and chills, believes her BP is high. Her PATIENT CARE TECHNICIAN worker is with her and member asked [...] .................. .................. .................. .................. .................. .................. ............... Funeral Car Driver Note From Teddy Miranda: Pt sts dis not call for neoSaej. [facility] set up appt. Pt was in ER yesterday diagnosed with RSV treated RX for ventalin and prednisone. Pt denies cp sob fever nausea diarrhea. Baseline vitals assessed. Lungs clear. No edema. [facility] contacted ..pt declined benzonatate. Pt advised self care and continue with RX meds. Pt education on signs indicating the ER. Funeral Car Driver Allergies: Lorazepam .................. .................. .................. .................. .................. .................. .................. ............... Disposition: Fulfilled Comments: Reviewed - Johana RNSEGMD: Patient seen yesterday evening [facility]. COvid negative per patient/ RSV +/She is using her albuterol every 4 hours. She is on prednisone. No nausea vomiting.Pat has hx that includes but not limited to: DM2/COPD/HTN/Fe deficiency anemia/hypothyroid ism/MDD with psychotic features/obesity status post laparoscopic gastrectomy/positi ve SUSAN/fibromyalgia. Anitha Camacho MD [address] [facility],[address], [place], [address], [place] - [employer]! 04/12/2023 10:53:56 OBGyn Episode No OBEpisode recorded.
--- OUTSIDE RECORDS SUMMARY | 2025-04-01 04:21 | XMS_ITS | Encounter Summary ---
Author Organization [employer] Address [address] [facility] 7t [place] [address] Care Team Providers Care Operations Manager Assistant Name Role Phone Pascual Daly MD Primary Care Provide r Fani Heck PharmD Unavailable + Dasia Waters PharmD Unavailable [phone] Encounter Details Date Type Department Care Team (Latest Contact Info) Description 05/26/2019 Abstract [facility] CONVERSIONS Dental, Provider, DDS Social [...] [facility] MEDICINE [address] [place] [address] Amanda Fernández, AALIYAH [address] [place] [address] 08/24/2025 10:15 AM EDT Office Visit [facility] ADULT DENTAL [address] [place] [address] KandyGabriela [address] [place] [address] documented as of this encounter Visit Diagnoses Not on filedocumented in this encounter Care Teams Operations Manager Assistant Relationship Specialty Start Date End Date Pascual Daly MD [address] [place] [address] PCP - General Internal Medicine 02/22/14 Fani Heck, KristiD [address] [place] [address] Pharmacist Internal Medicine 12/16/22 08/15/24 Dasia Waters PharmD [address] [place] [address] Pharmacist Internal Medicine 08/16/24 01/16/25 Iker MARCUSA 12/18/24 documented as of this encounter
--- OUTSIDE RECORDS SUMMARY | 2025-04-01 04:21 | XMS_ITS | Encounter Summary ---
Author Organization [employer] Address [address] [facility] 7[address] [place] [address] Care Team Providers Care Senior Product Consultant Name Role Phone Pascual Daly MD Primary Care Provide r Reason for Visit * Reason Comments Med Refill Encounter Details Date Type Department Care Team ([facility] st Contact Info) Description 02/10/2025 Refill [facility] MEDICINE [address] [place], [place] [phone] Pascual Daly MD [address] [place] [address] Long-term current use of opiate analgesic Social [...] 10:00 AM EST Clinical Support [facility] MEDICINE [address] [place] [address] Amanda Fernández RN [address] [place] [address] 08/24/2025 10:15 AM EDT Office Visit [facility] ADULT DENTAL [address] [place] [address] Kandy, Gabriela [address] [place] [address] documented as of this encounter Goals Goal [...] as of this encounter Care Teams Senior Product Consultant Relationship Specialty Start Date End Date Pascual Daly MD [address] [place] [address] PCP - General Internal Medicine 02/22/14 Iker CORDERO 12/18/24 documented as of this encounter
--- OUTSIDE RECORDS SUMMARY | 2025-04-01 04:21 | XMS_ITS | Encounter Summary ---
Author Organization [facility] Address [address] [place] [address] Care Team Providers Care Binding Dyer Name Role Phone Pascual Darnell MD Primary Care Provi chio Encounter Details Date Type Department Care Team (Late Contact Info) Description 11/23/2024 Lab Requisition [facility] - Main Lab [address] [facility] [place] [address] Vero Miek MD [address] [place], [place] [phone] Type 1 diabetes mellitus with hyperglycemia (CMS/HCC [...] Department Care Team (Late Contact Info) Description 06/15/2025 10:30 AM EST Office Visit [facility] [place] [address] [phone] Luciano Smith DPM [address] [address] documented as of this encounter Procedures Procedure Name Priority Date/Time Associated Diagnosis Comments VITAMIN D 25 HYDROXY Routine 11/24/2024 6:16 AM EDT Type 1 diabetes mellitus with hyperglycemia (CMS/HCC V24, CMS/HCC V28) Old myocardial infarction Essential (primary) hypertension Vitamin D deficiency, unspecified COMPLETE BLOOD COUNT Routine 11/24/2024 6:16 AM EDT Type 1 diabetes mellitus with hyperglycemia ([facility] V24, [facility]/HCC V28) Old myocardial infarction Essential (primary) hypertension Vitamin D deficiency, unspecified THYROID STIMULATING HORMONE Routine 11/24/2024 6:16 AM EDT Type 1 diabetes mellitus with hyperglycemia ([facility]/HCC V24, [facility] V28) Old myocardial infarction Essential (primary) hypertension Vitamin D deficiency, unspecified HEMOGLOBIN A1C Routine 11/24/2024 6:16 AM EDT Type 1 diabetes mellitus with hyperglycemia ([facility]/HCC V24, [facility] V28) Old myocardial infarction Essential (primary) hypertension Vitamin D deficiency, unspecified VITAMIN B12 Routine 11/24/2024 6:16 AM EDT Type 1 diabetes mellitus with hyperglycemia ([facility]/HCC V24, [facility] V28) Old myocardial infarction Essential (primary) hypertension Vitamin D deficiency, unspecified COMPREHENSIVE METABOLIC PANEL Routine 11/24/2024 6:16 AM EDT Type 1 diabetes mellitus with hyperglycemia ([facility]/HCC V24, [facility] V28) Old myocardial infarction Essential [...] t [facility] [address] [place] [address], * (ABNORMAL) Complete blood count (11/24/2024 6:16 [...] t [facility] [address] [place] [address], [place] [phone] * (ABNORMAL) Comprehensive metabolic panel (11/24/2024 6:16 [...] t [facility] [address] [place] [address], [place] [phone] * Thyroid stimulating hormone (11/24/2024 6:16 AM EDT) [facility] TSH 1.63 0.40 - 4.00 mcIU/mL LAB CHEMISTRY METHOD 11/24/2024 1:30 PM EDT [facility] Blood Venous blood specimen / Unknown Venipuncture / Unknown 11/24/2024 6:16 AM EDT 11/24/2024 10:32 AM EDT us Vero Mike MD LAB BLOOD ORDERABLES Final Resul t Performing Organization Address City/[facility] Co de Phone Number [facility] [address] [place] [address], [place] [phone] * Vitamin D 25 hydroxy (11/24/2024 6:16 AM EDT) [facility] Vit D, 25-Hydroxy 50.1 30.0 - 80.0 ng/mL LAB CHEMISTRY METHOD 11/24/2024 1:30 PM EDT [facility] Blood Venous blood specimen / Unknown Venipuncture / Unknown 11/24/2024 6:16 AM EDT 11/24/2024 10:32 AM EDT us Vero Mike MD LAB BLOOD ORDERABLES Final Resul t Performing Organization Address City/[facility]/ZIP Co de Phone Number [facility] [address] [place] [address], [place] [phone] * (ABNORMAL) Vitamin B12 (11/24/2024 6:16 AM EDT) [facility] Vitamin B-12 979(H) 250 - 900 pcg/mL LAB CHEMISTRY METHOD 11/24/2024 11:58 AM EDT [facility] Blood Venous blood specimen / Unknown Venipuncture / Unknown 11/24/2024 6:16 AM EDT 11/24/2024 10:32 AM EDT us Vero Mike MD LAB BLOOD ORDERABLES Final Resul t [facility] [address] [place] [address], documented in this encounter Visit Diagnoses Diagnosis Type 1 diabetes mellitus with hyperglycemia (CMS/[facility] V24, [facility] V28) Old myocardial infarction Essential (primary) hypertension Unspecified essential hypertension Vitamin D deficiency, unspecified documented in this encounter Care Teams Binding Dyer Relationship Specialty Start Date End Date Pascual Darnell MD [address] [place] [phone] PCP - General Internal Medicine 06/18/24 documented as of this encounter
--- OUTSIDE RECORDS SUMMARY | 2025-04-01 04:21 | XMS_ITS | Encounter Summary ---
Author Organization [employer] Address [address] [facility] 7t [place] [address] Care Team Providers Care Manager Entry Name Role Phone Pascual Daly MD Primary [...] Clinical Support [facility] MEDICINE [address] [place] [address] Amanda Fernández, AALIYAH [address] [place] [address] 08/24/2025 10:15 AM EDT Office Visit [facility] ADULT DENTAL [address] [place] [address] Kandy, Gabriela [address] [place] [address] documented as of this encounter Goals Goal [...] EST) Sodium 140 135 - 145 mmol/L [facility] Potassium 4.4 3.3 - 5.1 mmol/L [facility] Chloride 104 96 - 108 mmol/L [facility] Carbon Dioxide 26 22 - 29 mmol/L [facility] Anion Gap 14 12 - 20 [facility] Urea Nitrogen (BUN) 22(H) 9 - 16 mg/dL [facility] Creatinine, Serum 1.07 0.5 - 1.4 mg/dL [facility] Creatinine Clr Calc Pharmacy 39.0 [facility] Comment:Provided height and weight: 149.86 cm,71.4 kg.eGFR (calculated from the MDRD study equation) and eCrCl(calculated from the Cockcroft-Gault equation) are based ondifferent parameters and may not yield comparable results.If eCrCl result is absurd, please check patient'sheight/weight. Estimated Glomerular Filt Rate 50 [facility] Comment:Chronic Kidney Disea se: Estimated GFR < 60 mL/min/1.18x4Fnpoai Kidney Disease: Estimated GFR < 15 mL/min/1.73m2 Glucose 232(H) 60 - 115 mg/dL [facility] Calcium 9.5 8.4 - 10.2 mg/dL [facility] Bilirubin, Total 0.4 0.0 - 1.0 mg/dL [facility] Aspartate Amino Transferase 31 5 - 31 U/L [facility] Alanine Aminotransferase 39(H) 0 - 31 U/L [facility] Total Protein 6.2(L) 6.5 - 8.0 g/dL [facility] Albumin Level 4.1 3.5 - 5.0 g/dL [facility] Alkaline Phosphatase 94 39 - 117 U/L [facility] 03/28/2025 11:4 8 AM EST 03/28/2025 11:51 AM EST us Generic External Data Provider LAB BLOOD ORDERAB LES Final Result [facility] [address] [place] [address] [phone] * Partial Thromboplastin Time, Activated (APTT) (03/28/2025 11:48 AM EST) Partial Thromboplastin Time 28.5 26.7 - 34.1 SEC [facility] 03/28/2025 11:4 8 AM EST 03/28/2025 11:51 AM EST Generic External Data Provider LAB BLOOD ORDERAB LES Final Result Performing Organization Address [facility] Co de Phone Number [facility] [address] [place] [phone] * (ABNORMAL) Prothrombin Time-INR (03/28/2025 11:48 AM EST) Pathologist [facility] Prothrombin Time 10.8(L) 11.2 - 13.5 SEC [facility] INTERNATIONAL NORM RATIO 0.9 0.9 - 1.1 [facility] Comment:INTERNATIONAL NORMAL IZED RATIO (INR) REFERENCE [...] ORDERAB LES Final Result Performing Organization Address City/[facility] Co de Phone Number [facility] [address] [place] [phone] * (ABNORMAL) CBC auto differential (03/28/2025 11:48 AM EST) White Blood Count 8.5 4.8 - 10.8 X10*3/uL [facility] Red Blood Count 4.10(L) 4.20 - 5.50 X10*6/uL [facility] Hemoglobin 11.2(L) 12.0 - 16.0 g/dl [facility] Hematocrit 35.4(L) 37.0 - 47.0 % [facility] Mean Corpuscular Volume 86.3 80.0 - 98.0 fL [facility] Mean Corpuscular Hemoglobin 27.3 27.0 - 33.0 pg [facility] Mean Corpuscular HGB Conc 31.6 31.0 - 35.0 g/dl [facility] Red Cell Distribution Width 14.7 11.0 - 16.0 % [facility] Platelet Count 195 160 - 400 X10*3/uL [facility] Mean Platelet Volume 11.1 9.4 - 12.3 fL [facility] Neutrophils Percent Auto 54.4 45 - 73 % [facility] Imm Gran Pct Auto 0.2 0.0 - 0.4 % [facility] Lymphocytes Percent Auto 26.5 20 - 40 % [facility] Monocytes Percent Auto 7.3 2 - 11 % [facility] Eosinophils Percent Auto 10.7(H) 0 - 4 % [facility] Basophils Percent Auto 0.9 0 - 2 % [facility] NRBC Pct Auto 0.0 0.0 - 0.2 /100WBC [facility] Neutrophils Absolute Auto 4.7 2.0 - 8.3 x10*3/uL [facility] Imm Gran Abs Auto 0.02 0.00 - 0.03 X10*3/uL [facility] Lymphocytes Absolute Auto 2.3 1.2 - 4.9 X10*3/uL [facility] Monocytes Absolute Auto 0.6 0.1 - 1.2 X10*3/uL [facility] Eosinophils Absolute Auto 0.9(H) 0.0 - 0.4 X10*3/uL [facility] Basophils Absolute Auto 0.1 0.0 - 0.2 X10*3/uL [facility] NRBC Abs Auto 0.000 0.0 - 0.012 X10*3/uL [facility] 03/28/2025 11:4 8 AM EST 03/28/2025 11:51 AM EST us Generic External Data Provider LAB BLOOD ORDERAB LES Final Result [facility] [address] [place] [phone] [phone] documented in this encounter Visit Diagnoses Not on filedocumented in this encounter Additional Health Concerns Assessment Noted Time PHQ-9 Depression Total Score: 12 025 9:30 AM EDT documented as of this encounter Care Teams Manager Entry Relationship Specialty Start Date End Date Pascual Daly MD [address] [place] [address] PCP - General Internal Medicine 02/22/14 Iker MARCUSA 12/18/24 documented as of this encounter
--- OUTSIDE RECORDS SUMMARY | 2025-04-01 04:21 | XMS_ITS | Encounter Summary ---
Author Organization [employer] Address [address] [facility] 7t [place] [address] Care Team Providers Care Pan Shaker Name Role Phone Pascual Daly MD Primary Care Provide r Fani Heck PharmD Unavailable [phone] Dasia Waters PharmD Unavailable [phone] Reason for Visit * Reason Onset Date Comments FYI 12/11/2023 Durable Medical Equipment 12/11/2023 Encounter Details Date Type Department Care Team (Late st Contact Info) Description 12/11/2023 Telephone [facility] MEDICINE [address] [place], [place] [phone] Pascual Daly MD [address] [place], [place] [phone] FYI ; Durable Medical Equipment Social History [...] EDT Tc from [facility] informing that pt had 2 falls within the last 3 days and is requesting two DME scripts to be sent to [facility] which: [facility] bed Please fax over to [phone] documented in this encounter Plan of Treatment Upcoming Encounters Date Type Department Care Team (Late st Contact Info) Description 04/29/2025 10:00 AM EST Clinical Support [facility] MEDICINE [address] [place] [address] Amanda Fernández RN [address] [place] [address] 08/24/2025 10:15 AM EDT Office Visit [facility] ADULT DENTAL [address] [place] [address] Gabriela Gaitan [address] [place] [address] documented as of this encounter Goals Goal [...] documented as of this encounter Care Teams Pan Shaker Relationship Specialty Start Date End Date Pascual Daly MD [address] [place] [address] PCP - General Internal Medicine 02/22/14 Fani Heck, PharmD [address] [place] [address] Pharmacist Internal Medicine 12/16/22 08/15/24 Dasia Waters PharmD [address] [place] [phone] Pharmacist Internal Medicine 08/16/24 01/16/25 Iker MARCUSA 12/18/24 documented as of this encounter
--- OUTSIDE RECORDS SUMMARY | 2025-04-01 04:21 | XMS_ITS | Encounter Summary ---
Author Organization [employer] Address [address] [facility] 7t [place] [address] Care Team Providers Care Business Reporting Developer Name Role Phone Pascual Daly MD Primary Care Provide r Fani Heck PharmD Unavailable + Dasia Waters PharmD Unavailable [phone] Encounter Details Date Type Department Care Team (Late Contact Info) Description 05/29/2022 Abstract [facility] MEDICINE [address] [place] [address] Pascual Daly MD [address] [place] [address] Social History Tobacco Use Types Packs/Day Years [...] 10:00 AM EST Clinical Support [facility] MEDICINE [address] [place] [address] Amanda Fernández RN [address] [facility] [place] [address] 08/24/2025 10:15 AM EDT Office Visit [facility] ADULT DENTAL [address] [place] [address] Kandy Gabriela [address] [place] [address] documented as of this encounter Goals Goal [...] as of this encounter Care Teams Business Reporting Developer Relationship Specialty Start Date End Date [place] [address] PCP - General Internal Medicine 02/22/14 Fani Heck, [place] [address] Pharmacist Internal Medicine 12/16/22 08/15/24 [place] [address] Pharmacist Internal Medicine 08/16/24 01/16/25 Iker CORDERO 12/18/24 documented as of this encounter
--- OUTSIDE RECORDS SUMMARY | 2025-04-01 04:21 | XMS_ITS | Clinical Summary ---
Author Organization [employer] Address [address] [facility] 7[address] [place] [address] Care Team Providers Care Accounts Receivable Administrator Name Role Phone Pascual Daly MD [...] Active Continuous Glucose Sensor (Dexcom G7 Sensor) [facility] [place] Active Actemra ACTPen 162 MG/0.9ML solution [...] ulcer 09/16/2024 Coronary artery disease invo [place]ving [place] coronary artery of [place] heart without angina pectoris 08/12/2024 Assessment & [...] (08/27/2022 10:19 AM EDT): followed by a talent solutions manager. 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 She says it falls out when she brushes her hair Pt evaluated by Dr Guevara Rheumatoid arthritis involvi ng multiple sites with positive rheumatoid factor ([facility]/HCC) 08/27/2022 Assessment & Plan (01/04/2025 9:23 AM [...] Major depressive disorder with psychotic feature s ([facility]/HCC) 03/26/2022 Assessment & Plan (01/04/2025 9:33 AM EDT): Titi Gray retired She has a new Psychiatrist and a psychotherapist in [place] She tells me she is taking Effexor, [...] from 7.8 Eye exam done on: 12/2023 [facility] Dx with new [...] from 8.9 Eye exam done on: 12/2023 [facility] Dx with new [...] f/u She is under the care of Engineering Test Specialist Dr Sprague, last seen 12/31/2023 On a [...] f/u She is under the care of Engineering Test Specialist Dr Sprague, last seen 10/16/2023 On a [...] f/u She is under the care of Engineering Test Specialist Dr Sprague, has a follow up with [...] f/u She is under the care of Engineering Test Specialist Dr Sprague, has a follow up at [...] was referred to Dr. Manjinder Gonsales at [facility] as her medical insurance recommended [...] LDL-C. Melquiades WALLACE et al. TEN. 2013;310(19): 8731-4328 (http://education.[email or web address]/faq/[email or web address]) Chol/HDLC Ratio <5.0 (calc) 4.2 3.7 2.5 [...] (01/04/2025 9:38 AM EDT): Patient [place] [facility] [place]24 - 11/10/24) S/P fall and head injury at the visit with hematology. Eventually admitted for head injury and wrist injury. Patient's 4th finger was dislocated, lip, nose, and forehead were lacerated. Physical Therapy recommended rehabilitation. Eventually discharged to [facility] for not meeting medical necessity for hospitalization. Instructed to follow up with orthopedics team. She was at [facility] from 11/10/24 - 12/17/24 Discharged home with medications and assisted services. Instructed to follow up with PCP with us in 7 to 10 days. Today she feels fine, no complaints, has a follow up with orthopedics tomorrow Assessment & Plan (10/21/2023 10:15 AM EDT): Patient admitted to [facility]/09[facility]23 after she presented to [place] emergency room due to left-sided chest discomfort [...] Description 03/28/2025 10:00 AM EST Office Visit [facility] [address] [place] [phone] Momo Rizo MD Left-sided epistaxis (Primary Dx); Hypertension, unspecified type 03/28/2025 Orders Only GENERIC EXTERNAL DATA DEPARTMENT Provider, Generic External Data 03/28/2025 Telephone [facility] [address] [place] [address] Pascual Daly MD ED expect 03/28/2025 Travel 03/14/2025 Refill [facility] & PEDS [address] [place] [address] Amanda Fernández, AALIYAH Long-term current use of opiate analgesic 03/14/2025 Telephone [facility] MEDICINE [address] [place] [address] Pascual Daly MD Med Refill 02/21/2025 Refill [facility] MED[facility] [address] [place] [address] Pascual Daly MD Mild intermittent asthma without complication 02/17/2025 10:15 AM EDT Office Visit [facility] ADULT DENTAL [address] [place] [phone] Gabriela Gaitan Xerostomia (Primary Dx); Dental plaque; Missing teeth, acquired 02/11/2025 Telephone [facility] MEDIC[facility] [address] [place] [address] Ana Cali RN ER Follow-up 02/10/2025 Refill [facility] [address] [place] [address] Pascual Daly MD Long-term current use of opiate analgesic 02/10/2025 Refill [facility] [address] [place] [address] Pascual Daly MD Benign hypertension; Type 2 diabetes mellitus without complication, with long-term current use of insulin ([facility]) 02/09/2025 11:00 AM EDT Office Visit [facility] [address] [place] [address] Raven Polanco MD Suprapubic pain (Primary Dx); Bladder pain; Dietary counseling; Exercise counseling; Class 1 obesity with serious comorbidity and body mass index (BMI) of 30.0 to 30.9 in adult, unspecified obesity type; Paralytic ileus (CMS/HCC) (HCC) 02/09/2025 Orders Only GENERIC EXTERNAL DATA DEPARTMENT Provider, Generic External Data 02/09/2025 Results Follow-Up [facility] [address] [place] [address] Raven Polanco MD XR KUB and Upright 2 Views 02/09/2025 Travel 02/08/2025 Refill [facility] [address] [place] [address] Amanda Fernández RN Long-term current use of opiate analgesic 02/08/2025 Telephone [facility] MEDIC[facility] [address] [place] [address] Pascual Daly MD Med Refill 01/26/2025 9:00 AM EDT Office Visit [facility] ADULT DENTAL [address] [place] [address] Christian Winchester DDS Dental caries (Primary Dx); Aphthous ulcer 01/20/2025 10:30 AM EDT Clinical Support [facility] [address] [place] [address] Amanda Fernández RN Long-term current use of opiate analgesic (Primary Dx) 01/20/2025 Travel 01/17/2025 Abstract [facility] [address] [place] [address] Dasia Waters, PharmD 01/17/2025 Travel 01/14/2025 10:30 AM EDT Office Visit [facility] ADULT DENTAL [address] [place] [address] Ammy Owen, DDS Aphthous ulcer (Primary Dx) 01/14/2025 Refill [facility] MEDIC[facility] [address] [place] [address] Pascual Daly MD Pain 01/11/2025 Refill [facility] [address] [place] [address] Pascual Daly MD Long-term current use of opiate analgesic (Primary Dx) 01/07/2025 Orders Only GENERIC EXTERNAL DATA DEPARTMENT Provider, Generic External Data 01/04/2025 9:30 AM EDT Office Visit [facility] MED[facility] [address] [place] [address] Pascual Daly MD Hospital discharge follow-up (Primary Dx); Type 2 diabetes mellitus with right eye affected by mild nonproliferative retinopathy without macular edema, with long-term current use of insulin (CMS/HCC); Rheumatoid arthritis involving multiple sites with positive rheumatoid factor (CMS/HCC); Major depressive disorder with psychotic features (CMS/HCC); Mixed stress and urge urinary incontinence; Sore throat 01/04/2025 Travel 01/03/2025 Telephone [facility] [address] [place], [place] [phone] Pascual Daly MD chart prep 12/31/2024 Telephone [facility] [address] [place], [place] [phone] Katie Harper, KristiD from Last 3 Months [...] Description 04/29/2025 10:00 AM EST Clinical Support [facility] [address] [place] [address] Amanda Fernández, ALAIYAH [address] [place] [address] 08/24/2025 10:15 AM EDT Office Visit [facility] ADULT DENTAL [address] [place] [address] Kandy Gabriela [address] [place] [address] Health Maintenance Due Date Last Done Comments [...] use of insulin ([facility]) HEPATITIS PANEL, GENERAL Routine 10/28/2024 [...] Blood Count 8.5 4.8 - 10.8 X10*3/uL [facility] Red Blood Count 4.10(L) 4.20 - 5.50 X10*6/uL [facility] Hemoglobin 11.2(L) 12.0 - 16.0 g/dl [facility] Hematocrit 35.4(L) 37.0 - 47.0 % [facility] Mean Corpuscular Volume 86.3 80.0 - 98.0 fL [facility] Mean Corpuscular Hemoglobin 27.3 27.0 - 33.0 pg [facility] Mean Corpuscular HGB Conc 31.6 31.0 - 35.0 g/dl [facility] Red Cell Distribution Width 14.7 11.0 - 16.0 % [facility] Platelet Count 195 160 - 400 X10*3/uL [facility] Mean Platelet Volume 11.1 9.4 - 12.3 fL [facility] Neutrophils Percent Auto 54.4 45 - 73 % [facility] Imm Gran Pct Auto 0.2 0.0 - 0.4 % [facility] Lymphocytes Percent Auto 26.5 20 - 40 % [facility] Monocytes Percent Auto 7.3 2 - 11 % [facility] Eosinophils Percent Auto 10.7(H) 0 - 4 % [facility] Basophils Percent Auto 0.9 0 - 2 % [facility] NRBC Pct Auto 0.0 0.0 - 0.2 /100WBC [facility] Neutrophils Absolute Auto 4.7 2.0 - 8.3 x10*3/uL [facility] Imm Gran Abs Auto 0.02 0.00 - 0.03 X10*3/uL [facility] Lymphocytes Absolute Auto 2.3 1.2 - 4.9 X10*3/uL [facility] Monocytes Absolute Auto 0.6 0.1 - 1.2 X10*3/uL [facility] Eosinophils Absolute Auto 0.9(H) 0.0 - 0.4 X10*3/uL [facility] Basophils Absolute Auto 0.1 0.0 - 0.2 X10*3/uL [facility] NRBC Abs Auto 0.000 0.0 - 0.012 X10*3/uL [facility] 03/28/2025 11:4 8 AM EST 03/28/2025 11:51 AM EST Generic External Data Provider LAB BLOOD ORDERAB LES Final Result Performing Organization Address [facility]/ZIP Co de Phone Number [facility] [address] [place] [phone] * Partial Thromboplastin Time, Activated (APTT) (03/28/2025 11:48 AM EST) Partial Thromboplastin Time 28.5 26.7 - 34.1 SEC [facility] 03/28/2025 11:4 8 AM EST 03/28/2025 11:51 AM EST Generic External Data Provider LAB BLOOD ORDERAB LES Final Result Performing Organization Address [facility] Co de Phone Number [facility] [address] [place] [phone] * (ABNORMAL) Prothrombin Time-INR (03/28/2025 11:48 AM EST) Prothrombin Time 10.8(L) 11.2 - 13.5 SEC [facility] INTERNATIONAL NORM RATIO 0.9 0.9 - 1.1 [facility] Comment:INTERNATIONAL NORMAL IZED RATIO (INR) [...] Provider LAB BLOOD ORDERAB LES Final Result [facility] [address] [place] [phone] * (ABNORMAL) Comprehensive Metabolic Panel (03/28/2025 11:48 AM EST) Sodium 140 135 - 145 mmol/L [facility] Potassium 4.4 3.3 - 5.1 mmol/L [facility] Chloride 104 96 - 108 mmol/L [facility] Carbon Dioxide 26 22 - 29 mmol/L [facility] Anion Gap 14 12 - 20 [facility] Urea Nitrogen (BUN) 22(H) 9 - 16 mg/dL [facility] Creatinine, Serum 1.07 0.5 - 1.4 mg/dL [facility] Creatinine Clr Calc Pharmacy 39.0 [facility] Comment:Provided height and weight: 149.86 cm,71.4 kg.eGFR (calculated from the MDRD study equation) and eCrCl(calculated from the Cockcroft-Gault equation) are based ondifferent parameters and may not yield comparable results.If eCrCl result is absurd, please check patient'sheight/weight. Estimated Glomerular Filt Rate 50 [facility] Comment:Chronic Kidney Disea se: Estimated GFR < 60 mL/min/1.54e6Tjdaze Kidney Disease: Estimated GFR < 15 mL/min/1.73m2 Glucose 232(H) 60 - 115 mg/dL [facility] Calcium 9.5 8.4 - 10.2 mg/dL [facility] Bilirubin, Total 0.4 0.0 - 1.0 mg/dL [facility] Aspartate Amino Transferase 31 5 - 31 U/L [facility] Alanine Aminotransferase 39(H) 0 - 31 U/L [facility] Total Protein 6.2(L) 6.5 - 8.0 g/dL [facility] Albumin Level 4.1 3.5 - 5.0 g/dL [facility] Alkaline Phosphatase 94 39 - 117 U/L [facility] 03/28/2025 11:4 8 AM EST 03/28/2025 11:51 AM EST us Generic External Data Provider LAB BLOOD ORDERAB LES Final Result Performing Organization Address City/State/[facility] Co de Phone Number [facility] [address] [place] [phone] * CT Abdomen Pelvis w/ Contrast (02/09/2025 6:41 PM EDT) Anatomical Region Laterality Modality Body, Pelvis, Abdomen Computed T omography 02/09/2025 6:41 PM EDT Narrative 02/09/2025 6:43 PM EDT [address] [address] [address] Scan Report Signed Patient: Brandie Santana MR#: [id number] : 1950 Acct:[id number] Age/Sex: 75 / F ADM Date: 02/09/25 Loc: .ED Attending Dr: Ordering Physician: Vivian Reese DO Date of Service: 02/09/25 Procedure(s): CT abdomen pelvis w IV con Accession Number(s): [id number] cc: Vivian Reese DO; Pascual Darnell MD Report Number: [id number]: Total DLP = 0.00 mGy-cm Reason for [...] in OV> 02/09/251841 DD/ 40 TD/TT: 02/09/251840 Kiln Fireman: Procedure Note Donotuseinterpreter, Image - 02/09/[address] [place] [address] [address] Scan Report Signed Patient: Dino Santana#: [id number] : 1950Acct:[id number] Age/Sex: 75 / FADM Date: 02/09/25 Loc: .ED Attending Dr: Ordering Physician: Vivian Reese DO Date of Service: 02/09/25 Procedure(s): CT abdomen pelvis w IV con Accession Number(s): [id number] cc: Vivian Reese DO; Pascual Darnell MD Report Number: [id number]: Total DLP = 0.00 mGy-cm Reason for [...] in OV> 02/09/251841 DD/ 40 TD/TT: 02/09/251840 Kiln Fireman: [facility] External Provider IMG CT PROCEDURES Final Result * Culture, Urine, Routine (02/09/2025 6:40 PM EDT) Urine Urine specimen obtained by clean catch procedure / Unknown 02/09/2025 6:40 PM EDT 02/09/2025 6:40 PM EDT Comment:UACC Narrative [facility] - 02/11/2025 9:45 AM EDT Urine Culture Report Result Urine Culture 50,000 to 100,000 cfu/ml Urine Culture Mixed bacterial oriana characteristic of Urine Culture urogenital contamination. Specimen Source: Urine clean catch Generic External Data Provider LAB MICROBIOLOGY - GENERAL ORDERABLES Final Result [facility] [address] [place] [phone] * (ABNORMAL) Urinalysis, Complete, with Reflex to Culture (02/09/2025 6:11 PM EDT) Color Urine Yellow [facility] Appearance Urine Clear [facility] PH 6.0 5.0 - 9.0 [facility] Glucose Urine UA Negative Negative mg/dL [facility] Urine Blood Negative Negative [facility] Specific [place] - Urine 1.010 1.005 - 1.025 [facility] Urine Protein Negative Neg-Trace mg/dL [facility] Urine Ketones Negative Negative mg/dL [facility] Nitrite Urine Negative Negative [facility] Leukocyte Esterase Urine Trace(A) Negative [facility] RBC Urine 0-2 0 - 2 /HPF [facility] Urine WBC 6-10(A) 0 - 5 /HPF [facility] Urine Squamous Epithelial Cell 3-5 0 - 2 /HPF [facility] Urine Bacteria None Seen None Seen [facility] Hyaline Casts, Urine 0-2 0 - 2 /LPF [facility] Urine Yeast Present [facility] 02/09/2025 6:11 PM EDT 02/09/2025 6:16 PM EDT Narrative [facility] - 02/09/2025 6:39 PM EDT [id number], Clean Catch us Generic External Data Provider LAB URINE ORDERAB LES Final Result Performing Organization Address City/State/[facility] Co de Phone Number [facility] [address] [place] [phone] * XR KUB and Upright 2 Views (02/09/2025 12:44 PM EDT) Anatomical Region Laterality Modality Radiographic Zoe ging 02/09/2025 12:4 4 PM EDT Narrative 02/09/2025 1:26 PM EDT [address] [address] XRay Report Signed Patient: Brandie Santana MR#: [id number] : 1950 Acct:[id number] Age/Sex: 75 / F ADM Date: 02/09/25 Loc: HO.HHCX Attending Dr: Raven Polanco MD Ordering Physician: Raven Polanco Date of Service: 02/09/25 Procedure(s): XR KUB Accession Number(s): [id number] cc: Raven Polanco Reason for Exam: abdominal [...] 02/09/25 1323 DD/ 1244 TD/TT: 02/09/25 1310 Kiln Fireman: Procedure Note Donotuseinterpreter, Image - 02/09/[address] [address] XRay Report Signed Patient: Dino Santana#: [id number] : 1950Acct:[id number] Age/Sex: 75 / FADM Date: 02/09/25 Loc: .HHCX Attending Dr: Raven Polanco MD Ordering Physician: Raven Polanco Date of Service: 02/09/25 Procedure(s): XR KUB Accession Number(s): [id number] cc: Raven Polanco Reason for Exam: abdominal [...] 02/09/25 1323 DD/ 1244 TD/TT: 02/09/25 1310 Kiln Fireman: us Raven Polanco MD IMG XR PROCEDURES [...] AM EDT . Internal Pass Control Lot# [id number] Exp: 02-18-26 Pascual Terry MD POINT OF CARE TEST EN TER/EDIT ORDERABLES Final Result * Glucose, Whole Blood (01/07/2025 10:30 AM EDT) Glucose, Whole Blood 101 60 - 115 mg/dL [facility] Comment:METER #: [id number] Testing performed in the [facility]in[facility] [address], [facility]. 01/07/2025 10:3 0 AM EDT 01/07/2025 10:36 AM EDT Generic External Data Provider LAB BLOOD ORDERAB LES Final Result [facility] [address] [place] [phone] * (ABNORMAL) Hemoglobin A1c (01/07/2025) Pathologist [facility] Hemoglobin A1C 8.3(A) 4.0 - 5.7 % Blood Venous blood specimen / Unknown Result [facility] Historical Provider LAB BLOOD ORDERABLES Carla l Result * Basic Metabolic Panel (01/07/2025) Pathologist [facility] Glucose 101 mg/dL Blood Venous blood specimen / Unknown Result [facility] Historical Provider LAB BLOOD ORDERABLES Carla l Result * POCT Rapid Influenza A OSOM (01/04/2025 10:08 AM EDT) [facility] Rapid Influenza A Ag Negative Negative, Indeterminate QC Media Lot # [id number] Lot# Expiration Date Swab Nasopharyngeal structure / Unknown 01/04/2025 10:08 AM EDT Pascual Terry MD POINT OF CARE TEST EN TER/EDIT ORDERABLES Final Result * POCT Rapid Influenza B BALL ID NOW (01/04/2025 9:54 AM EDT) Influenza B Negative Negative, Indeterminate [facility] QC Media Lot # [id number] [facility] Lot# Expiration Date [facility] Swab 01/04/2025 9:54 AM EDT us Pascual Terry MD POINT OF CARE TEST EN TER/EDIT ORDERABLES Final Result [facility] [address] [place] [phone] * POCT Rapid Covid-19 BALL ID NOW (01/04/2025 9:54 AM EDT) [facility] Coronavirus Antigen PCR Negative Negative, Indeterminate, None Detected, Invalid, Specimen unsatisfactory for evaluation, Weakly Positive, 2+ QC Media Lot # [id number] Lot# Expiration Date Swab 01/04/2025 9:54 AM EDT Pascual Terry MD POINT OF CARE TEST EN TER/EDIT ORDERABLES Final Result * POCT Rapid Strep A BALL ID NOW (01/04/2025 9:51 AM EDT) [facility] Rapid Strep A Screen Negative Negative, None Detected QC Media Lot # [id number] Lot# Expiration Date Swab 01/04/2025 9:51 AM EDT Pascual Terry MD POINT OF CARE TEST EN TER/EDIT ORDERABLES Final Result * POCT Rapid Covid-19 BinaxNOW (01/04/2025 9:51 AM EDT) [facility] Rapid COVID Ag Negative QC Media Lot # [id number] Lot# Expiration Date Swab 01/04/2025 9:51 AM EDT Pascual Terry MD POINT OF CARE TEST EN TER/EDIT ORDERABLES Final Result * POCT Glucose (01/04/2025 9:29 AM EDT) [facility] Glucose Blood, POC 182 60 - 200 mg/dL QC Media Lot # [id number] Lot# Expiration Date [id number] Blood Capillary blood specimen / Unknown 01/04/2025 9:29 AM EDT Pascual Terry MD POINT OF CARE TEST EN TER/EDIT ORDERABLES Final Result * Hepatitis Panel, General (10/28/2024 10:04 AM EDT) Pathologist [facility] Hepatitis A IgM Nonreactive Nonreactive [facility] Comment:IgM antibodies to GARCIA V not detected; does not exclude earlyacute or recovered HAV infection. ~Hepatitis B Surface Antibody NONREACTIVE Nonreactive [facility] Comment:Nonreactive: < 8.00 mIU/mL Hepatitis B Core Antibody Nonreactive Nonreactive [facility] Hepatitis C Antibody Nonreactive Nonreactive [facility] Comment:Antibodies to HCV no t detected; does not exclude early acuteHCV infection. Hepatitis B Surface Ag Negative Negative [facility] 10/28/2024 10:0 4 AM EDT 10/28/2024 3:46 PM EDT us Generic External Data Provider LAB BLOOD ORDERAB LES Final Result Performing Organization Address City/State/[facility] Co de Phone Number [facility] [address] [place] [phone] * Lipid Panel, Standard (08/16/2024 9:24 AM EDT) Triglycerides 100 <150 mg/dL [facility] Comment:Desirable Triglyceri de: less than 150 mg/dLBorderline High Triglyceride 150-199 mg/dLHigh Triglyceride: 200-499 mg/dLVery High Triglyceride: greater than or equal to 5OO mg/dL Cholesterol 145 <200 mg/dL [facility] Comment:Desirable Cholestero l: less than 200 mg/dLBorderline High Cholesterol: 200-239 mg/dLHigh Cholesterol: greater than 239 mg/dL LDL Cholesterol Calculated 60 <100 mg/dL [facility] Comment:Desirable LDL: less than 100 mg/dLNear Optimal/Above Optimal LDL: 110- 129 mg/dLBorderline High LDL: 130-159 mg/dLHigh LDL: 160-189 mg/dLVery High LDL: greater than or equal to 190 mg/dL HDL Cholesterol 65 >40 mg/dL [facility] Comment:Desirable HDL: great er than 40 mg/dL Note: This HDL assay may give artificially low results in patients with liver disease. Blood Venous blood specimen / Unknown 08/16/2024 9:24 AM EDT 08/16/2024 10:57 AM EDT us Pascual Terry MD LAB BLOOD ORDERABLES Final Result [facility] [address] [place] [address] [phone] * (ABNORMAL) Albumin, Random Urine W/Creatinine (07/02/2023 10:06 AM EDT) Creatinine, Urine 163.81 mg/dL [facility] Microalbumin Urine 59.0 mg/L [facility] Microalbum Creatinine Ratio Ur 36.0(H) <30 ug/mg cr [facility] Comment:Albumin/Creatinine R atio Reference Ranges: Normal: < 30 ug/mg creatinine Microalbuminuria: 30 - 300 ug/mg creatinineClinical Albuminuria: > 300 ug/mg creatinine 07/02/2023 10:0 6 AM EDT 07/02/2023 11:41 AM EDT us Generic External Data Provider LAB URINE ORDERAB LES Final Result Performing Organization Address City/[facility]/ZIP Co de Phone Number [facility] [address] [place] [address] [phone] * Hm Colonoscopy (03/20/2018) Colonoscopy Normal Normal 03/20/2018 Narrative Sonrda Rowe - 03/20/2018 9:09 AM EST Recommended 10 year follow up us Historical Provider HEALTH MAINTENANCE Edited Result - Final from Last 3 Months or Most Recently [place] [address] [facility] LONG-TERM OPTIONS (H[place]) , [place] [address] [place] [address] , [place] [address] Care Teams Accounts Receivable Administrator Relationship Specialty Start Date End Date Pascual Daly MD [address] [place] [phone] PCP - General Internal Medicine 02/22/14 Iker A 12/18/24
--- OUTSIDE RECORDS SUMMARY | 2025-04-01 04:21 | XMS_ITS | Encounter Summary ---
Author Organization [employer] Address 75 [facility] 7t [place] [address] Care Team Providers Care Project Drilling Engineer Name Role Phone Pascual Daly MD Primary Care Provide r Reason for Visit * Reason Onset Date Comments Results 02/09/2025 Encounter Details Date Type Department Care Team ([facility] Contact Info) Description 02/09/2025 Results Follow-Up [facility] [address] [place] [address] Raven Polanco MD [address] [place] [address] XR KUB and Upright 2 Views Social [...] related to KUB results, pt states her CHILD CARE EDUCATION COORDINATOR is gone and she can't get to the hospital patient I then told the patient I would initiate an EMS call for ambulance transportation to hospital pt is in agreement. 911 contacted and dispatchedto pt home address which she verified over the phone. Also contact [facility] for an expect. Will forward to [...] Description 04/29/2025 10:00 AM EST Clinical Support [facility] [address] [place] [address] Amanda Fernández RN 505 [place] [address] 08/24/2025 10:15 AM EDT Office Visit [facility] [address] [place] [address] Gabriela Gaitan [address] [place] [address] documented as of this encounter Goals Goal [...] documented as of this encounter Care Teams Project Drilling Engineer Relationship Specialty Start Date End Date Pascual Daly MD [address] [place] [address] PCP - General Internal Medicine 02/22/14 Iker CORDERO 12/18/24 documented as of this encounter
--- OUTSIDE RECORDS SUMMARY | 2025-04-01 04:21 | XMS_ITS | Encounter Summary ---
Author Organization [facility] Address [address] [place] [address] Care Team Providers Care Principal Engineer Name Role Phone Pascual Darnell MD Primary Care Provi chio Encounter Details Date Type Department Care Team (Late st Contact Info) Description 11/16/2024 Lab Requisition [facility] - Main Lab [address] [facility] [place] [phone] Vero Mike MD [address] [place] [address] Altered mental status, unspecified Social History Tobacco [...] AM EST Office Visit [facility] - [place] [address] [phone] Luciano Smith DPM 175 [facility] [address] [place] [phone] documented as of this encounter Procedures Procedure [...] reflex microscopic (11/15/2024 12:20 PM EDT) Specific [place] Urine 1.012 1.003 - 1.030 LAB URINALYSIS - AUTOMATED METHOD 11/16/2024 9:53 AM [facility] pH, Urine 6.0 5.0 - 8.0 pH LAB URINALYSIS - AUTOMATED METHOD 11/16/2024 9:53 AM [facility] Leukocytes, Urine Small(A) Negative LAB URINALYSIS - AUTOMATED METHOD 11/16/2024 9:53 AM [facility] Nitrite, Urine Negative Negative LAB URINALYSIS - AUTOMATED METHOD 11/16/2024 9:53 AM [facility] Protein, Urine Negative <=Trace mg/dL LAB URINALYSIS - AUTOMATED METHOD 11/16/2024 9:53 AM [facility] Glucose, Urine 100(A) Negative mg/dL LAB URINALYSIS - AUTOMATED METHOD 11/16/2024 9:53 AM [facility] Ketones, Urine Negative Negative mg/dL LAB URINALYSIS - AUTOMATED METHOD 11/16/2024 9:53 AM [facility] Urobilinogen, Urine 0.2 0.2 - 1.0 mg/dL LAB URINALYSIS - AUTOMATED METHOD 11/16/2024 9:53 AM [facility] Bilirubin, Urine Negative Negative LAB URINALYSIS - AUTOMATED METHOD 11/16/2024 9:53 AM [facility] Blood, Urine Negative Negative LAB URINALYSIS - AUTOMATED METHOD 11/16/2024 9:53 AM [facility] RBC, Urine 1.7 0 - 4 /HPF LAB URINALYSIS - AUTOMATED METHOD 11/16/2024 9:53 AM EDT [facility] WBC, Urine 4.4(H) 0 - 4 /HPF LAB URINALYSIS - AUTOMATED METHOD 11/16/2024 9:53 AM EDT [facility] Squamous Epithelial, Urine 42 0 - 60 /LPF LAB URINALYSIS - AUTOMATED METHOD 11/16/2024 9:53 AM EDT [facility] Bacteria, Urine Many(A) Negative /HPF LAB URINALYSIS - AUTOMATED METHOD 11/16/2024 9:53 AM EDT [facility] Hyaline Casts, Urine 1.2 0 - 3 /LPF LAB URINALYSIS - AUTOMATED METHOD 11/16/2024 9:53 AM EDT [facility] Urine Urine specimen obtained by clean catch procedure / Unknown Non-blood Collection / Unknown 11/15/2024 12:20 PM EDT 11/16/2024 9:33 AM EDT us Vero Mike MD LAB URINE ORDERABLES Final Resul t [facility] [address] [place] [address], * (ABNORMAL) Culture urine (11/15/2024 12:20 PM EDT) Culture, Urine >=100,000 CFU/mL Klebsiella pneumoniae ssp pneumoniae(A) ANA 11/18/2024 10:57 AM EDT [facility] Comment: This is an [...] - GENERAL ORDER ELIU Final Result [facility] [address] [place] [address], documented in this encounter Visit Diagnoses Diagnosis Altered mental status, unspecified documented in this encounter Care Teams Principal Engineer Relationship Specialty Start Date End Date Pascual Darnell MD [address] [place] [phone] PCP - General Internal Medicine 06/18/24 documented as of this encounter
--- OUTSIDE RECORDS SUMMARY | 2025-04-01 04:21 | XMS_ITS | Encounter Summary ---
Author Organization [employer] Address 75 [facility] 7t [place] [address] Care Team Providers Care Ekg Technician Name Role Phone Pascual Daly MD Primary Care Provide r Reason for Visit * Reason Onset Date Comments Med Refill 03/14/2025 Encounter Details Date Type Department Care Team ([facility] st Contact Info) Description 03/14/2025 Telephone [facility] [address] [place] [address] Pascual Daly MD [address] [place] [address] Med Refill Social History Tobacco Use Types [...] sent to: [facility] - [place], [place] - [address] [place] [address] documented in this encounter Plan of Treatment Upcoming Encounters Date Type Department Care Team ([facility] st Contact Info) Description 04/29/2025 10:00 AM EST Clinical Support [facility] [address] [place] [address] Amanda Fernández RN [address] [place] [address] 08/24/2025 10:15 AM EDT Office Visit [facility] ADULT [facility] [address] [place] [address] Gabriela Gaitan [address] [place] [address] documented as of this encounter Goals Goal [...] documented as of this encounter Care Teams Ekg Technician Relationship Specialty Start Date End Date Pascual Daly MD [address] [place] [address] PCP - General Internal Medicine 02/22/14 [place] [employer] 12/18/24 documented as of this encounter
--- OUTSIDE RECORDS SUMMARY | 2025-04-01 04:21 | XMS_ITS | Encounter Summary ---
Author Organization [employer] Address 75 [facility] 7t [place] [address] Care Team Providers Care Union Representative Name Role Phone Pascual Daly MD Primary Care Provide r Fani Heck PharmD Unavailable [phone] Dasia Waters PharmD Unavailable [phone] Reason for Visit * Reason Onset Date Comments FYI 11/06/2023 Encounter Details Date Type Department Care Team ([facility] st Contact Info) Description 11/06/2023 Telephone [facility] [address] [place], [place] [phone] Pascual Daly MD [address] [place] [address] Social History Tobacco Use Types Packs/Day Years [...] - 11/06/2023 4:39 PM EDT Tc from [facility] Iker CORDERO PT informing pt has started services For PT 11/06/23 documented in this encounter Plan of Treatment Upcoming Encounters Date Type Department Care Team (Late st Contact Info) Description 04/29/2025 10:00 AM EST Clinical Support [facility] [address] [place] [address] Amanda Fernández RN [address] [place] [address] 08/24/2025 10:15 AM EDT Office Visit [facility] ADULT [facility] [address] [place] [address] Gabriela Gaitan [address] [place] [address] documented as of this encounter Goals Goal [...] documented as of this encounter Care Teams Union Representative Relationship Specialty Start Date End Date Pascual Daly MD [address] [place] [address] PCP - General Internal Medicine 02/22/14 Fani Heck PharmD [address] [place] [address] Pharmacist Internal Medicine 12/16/22 08/15/24 Dasia Waters PharmD [address] [place] [address] Pharmacist Internal Medicine 08/16/24 01/16/25 Iker MARCUSA 12/18/24 documented as of this encounter
--- OUTSIDE RECORDS SUMMARY | 2025-04-01 04:21 | XMS_ITS | Encounter Summary ---
Author Organization [employer] Address 75 [facility] 7t [place] [address] Care Team Providers Care Delivery Of Shopping News Name Role Phone Pascual Daly MD Primary Care Provide r Fani Heck PharmD Unavailable [phone] Dasia Waters PharmD Unavailable [phone] Reason for Visit * Reason Onset Date Comments Med Refill 10/11/2022 Encounter Details Date Type Department Care Team ([facility] st Contact Info) Description 10/11/2022 Telephone [facility] [address] [place], [place] [phone] Pascual Daly MD [address] [place], [place] [phone] Med Refill Social History Tobacco Use Types [...] Description 04/29/2025 10:00 AM EST Clinical Support [facility] [address] [place] [address] Amanda Fernández, AALIYAH [address] [place] [address] 08/24/2025 10:15 AM EDT Office Visit [facility] [address] [place] [address] Kandy, Gabriela [address] [place] [address] documented as of this encounter Goals Goal [...] documented as of this encounter Care Teams Delivery Of Shopping News Relationship Specialty Start Date End Date Pascual Daly MD [address] [place] [address] PCP - General Internal Medicine 02/22/14 Fani Heck, PharmD [address] [place] [address] Pharmacist Internal Medicine 12/16/22 08/15/24 Dasia Waters, KristiD [address] [place] [address] Pharmacist Internal Medicine 08/16/24 01/16/25 [facility] [facility] 12/18/24 documented as of this encounter
--- OUTSIDE RECORDS SUMMARY | 2025-04-01 04:21 | XMS_ITS | Encounter Summary ---
Author Organization [employer] Address 75 [facility] 7t [place] [address] Care Team Providers Care Public Administration Professor Name Role Phone Pascual Daly MD Primary Care Provide r Fani Heck PharmD Unavailable +[phone] Dasia Waters PharmD Unavailable [phone] Encounter Details Date Type Department Care Team (Late st Contact Info) Description 03/11/2022 Abstract [facility] [address] [place] [phone] Pascual Daly MD [address] [place] [address] Social History Tobacco Use Types Packs/Day Years [...] Description 04/29/2025 10:00 AM EST Clinical Support [facility] [address] [place] [address] Amanda Fernández RN 505 [place] [address] 08/24/2025 10:15 AM EDT Office Visit [facility] [address] [place] [address] Gabriela Gaitan [address] [place] [address] documented as of this encounter Visit Diagnoses Not on filedocumented in this encounter Care Teams Public Administration Professor Relationship Specialty Start Date End Date Pascual Daly MD [address] [place] [address] PCP - General Internal Medicine 02/22/14 Fani Heck, KristiD [address] [place] [address] Pharmacist Internal Medicine 12/16/22 08/15/24 Dasia Waters PharmD [address] [place] [phone] Pharmacist Internal Medicine 08/16/24 01/16/25 Iker MARCUSA 12/18/24 documented as of this encounter
--- OUTSIDE RECORDS SUMMARY | 2025-04-01 04:21 | XMS_ITS | Encounter Summary ---
Author Organization [employer] Address 75 [facility] 7t [place] [address] Care Team Providers Care Cardiac Cath Lab Radiology Technologist Name Role Phone Pascual Daly MD Primary Care Provide r Fani Heck PharmD Unavailable +[phone] Dasia Waters PharmD Unavailable [phone] Encounter Details Date Type Department Care Team (Late st Contact Info) Description 03/11/2022 Abstract [facility] [address] [place] [address] Fani Heck, PharmD 230 [place] [address] Social History Tobacco Use Types Packs/Day Years [...] EST Clinical Support [facility] [address] [place] [address] Amanda Fernández RN 505 [place] [address] 08/24/2025 10:15 AM EDT Office Visit [facility] [address] [place] [address] Gabriela Gaitan [address] [place] [address] documented as of this encounter Visit Diagnoses Not on filedocumented in this encounter Care Teams Cardiac Cath Lab Radiology Technologist Relationship Specialty Start Date End Date Pascual Daly MD [address] [place] [address] PCP - General Internal Medicine 02/22/14 Fani Heck, KristiD [address] [place] [address] Pharmacist Internal Medicine 12/16/22 08/15/24 Dasia Waters PharmD [address] [place] [address] Pharmacist Internal Medicine 08/16/24 01/16/25 Iker MARCUSA 12/18/24 documented as of this encounter
--- OUTSIDE RECORDS SUMMARY | 2025-04-01 04:21 | XMS_ITS | Encounter Summary ---
Author Organization [employer] Address 75 [facility] 7t [place] [address] Care Team Providers Care Bath Tester Name Role Phone Pascual Daly MD Primary Care Provide r Fani Heck PharmD Unavailable [phone] Dasia Waters PharmD Unavailable [phone] Reason for Visit * Reason Comments Med Refill Encounter Details Date Type Department Care Team (Late st Contact Info) Description 10/21/2023 Refill [facility] [address] [place] [address] Titi Gray FNP Major depressive disorder with [...] Description 04/29/2025 10:00 AM EST Clinical Support [facility] [address] [place] [phone] Amanda Fernández RN [address] [place] [address] 08/24/2025 10:15 AM EDT Office Visit [facility]ULT [facility] [address] [place] [address] Primo Gaitanaris [address] [place] [address] documented as of this encounter Goals Goal [...] documented as of this encounter Care Teams Bath Tester Relationship Specialty Start Date End Date Pascual Daly MD 230 [place] [address] PCP - General Internal Medicine 02/22/14 Fani Heck, PharmD [address] [place] [address] Pharmacist Internal Medicine 12/16/22 08/15/24 Dasia Waters, KristiD [address] [place] [address] Pharmacist Internal Medicine 08/16/24 01/16/25 Iker MARCUSA 12/18/24 documented as of this encounter
--- OUTSIDE RECORDS SUMMARY | 2025-04-01 04:21 | XMS_ITS | Encounter Summary ---
Author Organization [employer] Address 75 [facility] 7t [place] [address] Care Team Providers Care Parts Salesman Name Role Phone Pascual Daly MD Primary Care Provide r Fani Heck PharmD Unavailable [phone] Dasia Waters PharmD Unavailable [phone] Reason for Visit * Reason Onset Date Comments Med Refill 12/15/2023 Encounter Details Date Type Department Care Team ([facility] st Contact Info) Description 12/15/[address] [facility] [address] [place], [place] [phone] Pascual Daly MD [address] [place] [address] Med Refill Social History Tobacco Use Types [...] tablet To be sent to: [facility] - [place], [place] - [address] [place] [address] documented in this encounter Plan of Treatment Upcoming Encounters Date Type Department Care Team ([facility] st Contact Info) Description 04/29/2025 10:00 AM EST Clinical Support [facility] [address] [place] [address] Amanda Fernández RN [address] [place] [address] 08/24/2025 10:15 AM EDT Office Visit [facility] [address] [place] [address] Gabriela Gaitan [address] [place] [address] documented as of this encounter Goals Goal [...] documented as of this encounter Care Teams Parts Salesman Relationship Specialty Start Date End Date Pascual Daly MD [address] [place] [address] PCP - General Internal Medicine 02/22/14 Fani Heck, PharmD [address] [place] [address] Pharmacist Internal Medicine 12/16/22 08/15/24 Dasia Waters PharmD [address] [place] [address] Pharmacist Internal Medicine 08/16/24 01/16/25 Iker [facility]NA 12/18/24 documented as of this encounter
--- NOTE | 2025-04-01 04:49 | ED.EPISTAXIS ---
History of Present Illness General Chief Complaint: Epistaxis Stated Complaint: NOSEBLEED X5HRS NO THINNER PER EMS Time Seen by Provider: 04/01/25 04:45 Source: patient and EMS Mode of arrival: EMS Limitations: no limitations History of Present Illness ED Provider: Dr. Christy Smalls [facility] Narrative: Patient comes to the emergency room complaining of epistaxis from the left nostril. Patient was seen here a few days ago for the same concern. Patient takes Plavix. Patient denies any nose trauma. Patient states that she has been having left nostril bleed for a proximally 5 hours today Related Data Home Medications ?Medication ?Instructions ?Recorded ?Confirmed clonazepam 0.5 mg tablet 1 tab PO Q8H PRN anxiety 01/02/21 01/13/25 amlodipine 10 mg tablet 10 mg PO DAILY 05/14/22 01/13/25 prazosin 2 mg capsule 6 mg PO BEDTIME 05/14/22 01/13/25 aripiprazole 20 mg tablet 20 mg PO DAILY 01/10/23 01/13/25 losartan 100 mg tablet 100 mg PO DAILY 07/30/23 01/13/25 atorvastatin 20 mg tablet 20 mg PO DAILY 08/21/23 01/13/25 gabapentin 100 mg capsule 100 mg PO BID 08/21/23 01/13/25 melatonin 3 mg tablet 3 mg PO BEDTIME 08/21/23 01/13/25 venlafaxine 75 mg capsule,extended 75 mg PO DAILY 10/07/24 01/13/25 release 24 hr clopidogrel 75 mg tablet 75 mg PO DAILY 11/09/24 01/13/25 linaclotide 145 mcg capsule 145 mcg PO DAILY 11/09/24 01/13/25 (Linzess) oxycodone 5 mg tablet 5 mg PO Q12H PRN Pain, 11/09/24 01/13/25 Moderate(Pain Scale 4-6) simethicone 125 mg chewable tablet 125 mg PO QID PRN abdominal 11/09/24 01/13/25 (Gas Relief (simethicone)) distention folic acid 1 mg tablet 1 mg PO DAILY 01/13/25 01/13/25 Previous Rx's ?Medication ?Instructions ?Recorded insulin syringe-needle U-100 0.3 #100 ea 06/13/20 mL 31 gauge x 5/16 (BD Insulin Syringe Ultra-Fine) albuterol sulfate 90 mcg/actuation 2 puff inhalation Q4-6H PRN 04/10/23 aerosol inhaler shortness of breath or wheezing #8.5 grams albuterol sulfate 2.5 mg/3 mL 2.5 mg (3 mL) inhalation Q3H PRN 04/18/23 (0.083 %) solution for nebulization sob #180 mL nebulizers #1 ea 04/18/23 acetaminophen 325 mg tablet 650 mg (2 x 325 mg) PO Q6H PRN 09/16/23 Pain, Mild (Pain Scale 1-3) #1 tab ondansetron 4 mg disintegrating 4 mg PO Q8H PRN nausea and 01/04/24 tablet vomiting #7 tabs zinc gluconate 30 mg tablet 30 mg PO DAILY #90 tabs 04/01/24 carvedilol 6.25 mg tablet 6.25 mg PO BID #180 tabs 07/22/24 blood sugar diagnostic (FreeStyle #200 strips 08/03/24 Lite Strips) glucagon 3 mg/actuation nasal 3 mg intranasal ONCE PRN 11/08/24 spray (Baqsimi) Unresponsive hypoglycemia may repeat in 15min 30 days #2 ea pen needle, diabetic 32 gauge x #200 ea 11/08/24 (Pentips Pen Needle) Fiasp FlexTouch U-100 Insulin 100 See Protocol subcut TIDAC #15 mL 01/07/25 unit/mL (3 mL) subcutaneous pen (insulin aspart (niacinamide)) blood-glucose meter (FreeStyle #1 ea 01/07/25 Lite Meter kit) insulin degludec 100 unit/mL (3 20 unit (0.2 mL) subcut DAILY #15 01/07/25 mL) subcutaneous pen (Tresiba mL FlexTouch U-100 insulin) bisacodyl 5 mg tablet,delayed 10 mg (2 x 5 mg) PO BEDTIME #60 01/11/25 release tabs prednisone 5 mg tablet 5 mg PO DIRECTED #70 tabs 01/11/25 Actemra ACTPen 162 mg/0.9 mL 162 mg (0.9 mL) subcut Q2W #1.8 mL 02/03/25 subcutaneous pen injector (tocilizumab) cephalexin 500 mg capsule 500 mg PO Q8H 7 days #21 caps 02/09/25 calcium citrate 400 mg (2 x 200 mg (950 mg)) PO 02/10/25 BID #120 tabs cholecalciferol (vitamin D3) 50 50 mcg PO DAILY #30 caps 02/10/25 mcg (2,000 unit) capsule (Vitamin D3) blood-glucose sensor (Dexcom G7 #3 ea 02/15/25 Sensor device) esomeprazole magnesium 40 mg 40 mg PO DAILY #30 caps 02/15/25 capsule,delayed release ciprofloxacin HCl 500 mg tablet 500 mg PO BID 5 days #10 tabs 03/03/25 phenazopyridine 99.5 mg tablet 99.5 mg PO Q8H PRN pain #20 tabs 03/03/25 (Azo Urinary Pain Relief) levothyroxine 125 mcg tablet 125 mcg PO DAILY@0600 #30 tabs 03/11/25 Allergies Allergy/AdvReac Type Severity Reaction Status Date / Time lorazepam (LORAZEPAM) Allergy Severe DELIRIUM Verified 04/01/25 04:01 celecoxib (From Celebrex) Allergy Intermediate ITCHING Verified 04/01/25 04:01 tramadol (TRAMADOL) Allergy Intermediate ITCHING Verified 04/01/25 04:01 zolpidem (Ambien) Allergy Unknown unknown Verified 04/01/25 04:01 Review of Systems Review of Systems: Constitutional : No Weight loss, No Fever, No Chills, No Night Sweats, No Fatigue, No Malaise ENT/Mouth : Complaining of epistaxis from the left nostril, no trauma, No Hearing loss, No Ear Pain, No Nasal Congestion, No Sinus Pain, No Hoarseness, No sore throat, No Rhinorrhea, No Swallowing Difficulty Eyes: No Eye Pain, No Swelling, No Redness, No Foreign Body, No Discharge, No Vision Changes Cardiovascular : No Chest Pain, No SOB, No Dyspnea on Exertion, No Orthopnea, No Edema, No Palpitations Respiratory : No Cough, No Sputum, No Wheezing, No Smoke Exposure, No Dyspnea Gastrointestinal : No Nausea, No Vomiting, No Diarrhea, No Constipation, No abdominal Pain, No Hematochezia, No Melena Genitourinary : no irregular bleeding, No Dysuria, No Urinary Frequency, No Hematuria, No Urinary Incontinence, No Urgency, No Flank Pain, No Urinary Flow Changes, No Hesitancy Musculoskeletal : No joint pain, No Myalgias, No Joint Swelling Skin : No Skin Lesions, No rash Neuro : No Weakness, No Numbness, No Paresthesias, No Loss of Consciousness, No Dizziness, No Headache Psych : No Anxiety/Panic, No Depression, No SI/HI/AH/VH, No Social Issues, Heme/Lymph: No Bruising, No Bleeding,No Lymphadenopathy Endocrine : No Polyuria, No Polydipsia, No Temperature Intolerance [facility] Past Medical History Medical History Heart palpitations Hypoglycemia due to insulin Elevated parathyroid hormone Osteoporosis Hyperlipidemia (04/21/1959) Depressive disorder (04/21/1959) Nutritional anemia (04/21/1959) Shortness of breath Hypothyroidism (04/21/1959) Anemia Chronic gastritis NSTEMI (non-ST elevated myocardial infarction) Recurrent falls (12/04/11) Iron deficiency anemia (04/21/1959) Fibromyositis (04/21/1959) Eczema (04/21/1959) High risk medication use Hepatitis C antibody positive in blood Screening for osteoporosis Screening for viral disease Joint swelling Overweight (BMI 25.0-29.9) Neck pain Swelling of knee joint, right Intra-abdominal abscess Diabetes Elevated liver function tests Intestinal malabsorption following gastrectomy Obesity (BMI 30-39.9) 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 Hypertension Cholecystitis Hyperlipidemia, unspecified Essential hypertension Atherosclerotic cardiovascular disease Fibromyalgia Folliculitis Anxiety Depression History of myocardial infarction Diabetes type 1, uncontrolled Hyperparathyroidism due to vitamin D deficiency Dyslipidemia Rona's disease Hypothyroidism Surgical History Status post gastric bypass for obesity History of bypass gastroenterostomy (11/13/17) H/O gastric bypass S/P laparoscopic cholecystectomy History of esophagogastroduodenoscopy (EGD) H/O colonoscopy History of laparoscopic cholecystectomy History of bladder suspension procedure Status post laser cataract surgery of both eyes Hx of appendectomy Family History Family History Father No problems noted. Mother CVA (cerebral vascular accident) Sister Hypertension Brother Hypertension Liver cancer Social History Social History Household Members: None Housing: Apartment Are you a primary healthcare economics consultant to a significant other at home: No Do you presently have visiting nurse or other home services: Yes Alcohol intake: never Patient Tobacco Use Status: Never used Tobacco Advance Directives: Yes Advance Directives on File: Yes Advance Directives Date on File: 09/17/23 service: No Current occupational status: disabled Current occupation: right hand dominant Physical Exam Exam: Exam: Appearance: Alert. Oriented X3. No acute distress. Eyes: Pupils equal, round and reactive to light. ENT: Patient has very scant bleeding on the right nostril, more prominent on the left nostril. Neck: Normal inspection. Neck supple. No lymph nodes noted. No crepitus CVS: Normal heart rate and rhythm. Pulses normal. Normal S1 and S2 Respiratory: No respiratory distress. Breath sounds normal. No Wheezing. No rales Abdomen: Soft and nontender. No rigidity. No distention. Skin: Skin warm and dry. Normal skin color. Normal skin turgor. Extremities: No lower extremity edema. No Lacerations. No Rash Neuro: Oriented X 3. No motor deficit. No sensory deficit. Moving all extremities. No slurred speech. CN 2 through 12 grossly intact Psych: calm, cooperative, normal affect Vital Signs: Vital Signs: Last Vital Signs Temp 98.1 F 04/01/25 03:57 Pulse 95 04/01/25 03:57 Resp 20 04/01/25 03:57 BP 134/46 L 04/01/25 03:57 Pulse Ox 97 04/01/25 03:57 O2 Del Method Room Air 04/01/25 03:57 BMI result Body Mass Index 30.7 Course Course Course Narrative: Patient was given a dose of oxymetazoline Medications Administered Discontinued Medications Generic Name Dose Route Start Last Admin Trade Name [place] PRN Reason Stop Dose Admin Oxymetazoline HCl 2 spray 04/01/25 04:49 04/01/25 04:54 Oxymetazoline Hcl 0.05 % Nasal 15 Ml [place] NOSTRIL-B 04/01/25 04:50 2 spray ONCE ONE Administration Medical Decision Making Medical Decision Making [facility] Narrative: After 1 dose of Afrin, epistaxis resolved. Patient's vitals stable. Discharge Plan Discharge Clinical Impression: Epistaxis Patient Disposition: Home, Self-Care Instructions: Nosebleed (ED) Additional Instructions: Please follow-up with your primary care physician tomorrow. If you have any worsening or new symptoms, please return to the emergency room or call 911 Prescriptions: No Action (DME) insulin syringe-needle U-100 [BD Insulin Syringe Ultra-Fine] 0.3 mL 31 gauge x 5/16 syringe See Rx Instructions .ROUTE .MEDSUPPLY Qty: 100 0RF Rx Instructions: As directed 3 times per day zinc gluconate 30 mg tablet 30 mg PO DAILY Qty: 90 3RF carvedilol 6.25 mg tablet 6.25 mg PO BID Qty: 180 3RF (DME) FreeStyle Lite Strips Strip See Rx Instructions .ROUTE .COMPLEX Qty: 200 11RF Dose Instruction: TEST BLOOD SUGAR 8 TIMES EVERY DAY Rx Instructions: TEST BLOOD SUGAR 8 TIMES EVERY DAY bisacodyl 5 mg tablet,delayed release (DR/EC) 10 mg PO BEDTIME Qty: 60 6RF Actemra ACTPen 162 mg/0.9 mL pen injector 162 mg subcut Q2W Qty: 1.8 5RF calcium citrate 200 mg (950 mg) tablet 400 mg PO BID Qty: 120 4RF cholecalciferol (vitamin D3) [Vitamin D3] 50 mcg (2,000 unit) capsule 50 mcg PO DAILY Qty: 30 0RF esomeprazole magnesium 40 mg capsule,delayed release(DR/EC) 40 mg PO DAILY Qty: 30 1RF (DME) Dexcom G7 Sensor Device See Rx Instructions .ROUTE .MEDSUPPLY Qty: 3 11RF Rx Instructions: As directed every 10 days levothyroxine 125 mcg tablet 125 mcg PO DAILY@0600 Qty: 30 3RF Rx Instructions: Take Levothyroxine to 125 mcg daily for 6 days, and 1/2 tablet on the 7th day. clonazepam 0.5 mg tablet 1 tab PO Q8H PRN (Reason: anxiety) acetaminophen 325 mg Tablet 650 mg PO Q6H PRN (Reason: Pain, Mild (Pain Scale 1-3)) Qty: 1 0RF ondansetron 4 mg tablet,disintegrating 4 mg PO Q8H PRN (Reason: nausea and vomiting) Qty: 7 0RF albuterol sulfate 90 mcg/actuation HFA aerosol inhaler 2 puff inhalation Q4-6H PRN (Reason: shortness of breath or wheezing) Qty: 8.5 0RF albuterol sulfate 2.5 mg /3 mL (0.083 %) Solution For Nebulization 2.5 mg inhalation Q3H PRN (Reason: sob) Qty: 180 2RF (DME) nebulizers Misc See Rx Instructions .Route Qty: 1 0RF Rx Instructions: As directed clopidogrel 75 mg tablet 75 mg PO DAILY simethicone [Gas Relief (simethicone)] 125 mg tablet,chewable 125 mg PO QID PRN (Reason: abdominal distention) Linzess 145 mcg capsule 145 mcg PO DAILY Rx Instructions: Take first thing in the morning with a full glass of water. oxycodone 5 mg tablet 5 mg PO Q12H PRN (Reason: Pain, Moderate(Pain Scale 4-6)) Rx Instructions: Partial Fill upon patient request. cephalexin 500 mg capsule 500 mg PO Q8H 7 Days Qty: 21 0RF amlodipine 10 mg tablet 10 mg PO DAILY prazosin 2 mg capsule 6 mg PO BEDTIME aripiprazole 20 mg tablet 20 mg PO DAILY losartan 100 mg tablet 100 mg PO DAILY prednisone 5 mg tablet 5 mg PO DIRECTED Qty: 70 0RF Rx Instructions: Take 4 tablets for 7 days then 3 tablets for 7 days then 2 tablets for 7 days then 1 tablet for 7 days then stop gabapentin 100 mg capsule 100 mg PO BID melatonin 3 mg tablet 3 mg PO BEDTIME atorvastatin 20 mg tablet 20 mg PO DAILY venlafaxine 75 mg capsule,extended release 24hr 75 mg PO DAILY Baqsimi 3 mg/actuation spray,non-aerosol 3 mg intranasal ONCE PRN (Reason: Unresponsive hypoglycemia may repeat in 15min) 30 Days Qty: 2 1RF (DME) pen needle, diabetic [Pentips Pen Needle] 32 gauge x 5/32 needle See Rx Instructions .ROUTE .COMPLEX Qty: 200 7RF Dose Instruction: USE FIVE TIMES DAILY Rx Instructions: USE FIVE TIMES DAILY (DME) blood-glucose meter [FreeStyle Lite Meter] Kit See Rx Instructions .ROUTE .MEDSUPPLY Qty: 1 0RF Rx Instructions: As directed insulin degludec [Tresiba FlexTouch U-100] 100 unit/mL (3 mL) insulin pen 20 unit subcut DAILY Qty: 15 3RF Fiasp FlexTouch U-100 Insulin 100 unit/mL (3 mL) insulin pen See Protocol subcut TIDAC Qty: 15 5RF Protocol: Insulin Correction Scale Less than or equal to 110 ---- Give (units): 0 111 to 150 Give (units): 0 151 to 200 Give (units): 2 201 to 250 Give (units): 4 251 to 300 Give (units): 6 301 to 350 Give (units): 8 Greater than 350 Give (units): 10 Call MD if Blood Glucose > : 350 Rx Instructions: Breakfast dosing Fiasp 80-100 5 units 101-200 8 units 151-200 10 units 201-250 12 units 251 -300 12 units Over 300 12 units Lunch and supper 80-100 10 units 101-150 10 units 151-200 12 units 201-250 14 units 250-300 14 units over 300 lunch 14 units folic acid 1 mg tablet 1 mg PO DAILY ciprofloxacin HCl 500 mg tablet 500 mg PO BID 5 Days Qty: 10 0RF Azo Urinary Pain Relief 99.5 mg tablet 99.5 mg PO Q8H PRN (Reason: pain) Qty: 20 0RF Rx Instructions: Must administer with food Print Language: Mohawk
[2025-04-01] MEDS: Oxymetazoline HCl 0.05 % Nasal 15 ML SPRAY 2 SPRAY NOSTRIL-B (04:54)
[2025-04-01 05:18] VITALS: BP 143/43; PULSE 98; RESP 16; TEMP 36.4; O2SAT 98
[2025-04-01 05:29] VITALS: BP 143/43; PULSE 98; RESP 16; TEMP 36.4; O2SAT 98
== END 2025-04-01 05:30 | disposition home or self-care (01) ==
PROVIDERS: Emergency Provider Emergency Medicine; PCP Internal Medicine
DX: R04.0 Epistaxis (principal); E11.9 Type 2 diabetes mellitus without complications; I10 Essential (primary) hypertension; E78.5 Hyperlipidemia, unspecified; Z79.4 Long term (current) use of insulin; Z79.02 Long term (current) use of antithrombotics/antiplatelets; Z79.899 Other long term (current) drug therapy
CPT/HCPCS: 99282; 99283